=== PATIENT | female | born 1940 | race Caucasian/White ===

== ENCOUNTER → 2017-05-05 09:52 | Outpatient (CLI) | payer MEDICARE, OTHER, SELFPAY ==
--- NOTE | 2017-05-05 09:59 | RAD_ITS ---
STUDY: X-RAY CHEST REASON FOR EXAM: Female, 77 years old. Cough. TECHNIQUE: Frontal and lateral views of the chest. COMPARISON: None. FINDINGS: The lungs are mildly hyperexpanded. There is a mild diffuse interstitial pattern. There is no demonstrated pleural abnormality. There is borderline cardiomegaly. Normal mediastinum and laurence. Normal visualized pulmonary arteries. There is aortic tortuosity with calcification. There are diffuse degenerative changes of the visualized thoracic spine. Normal visualized ribs, clavicles, and shoulders. There is no demonstrated abnormality of the visualized soft tissue structures of the upper abdomen. RAD/Chest PA and Lateral IMPRESSION: Borderline cardiomegaly with hyperexpansion and diffuse interstitial pattern. No acute abnormalities are present. Electronically Signed: Edwar Patino MD at 10:17 EST , Service support ,
== END ==
PROVIDERS: Family Provider Internal Medicine; PCP Internal Medicine; Visit Provider Internal Medicine
DX: R05 Cough (principal)
CPT/HCPCS: 71046

== ENCOUNTER → 2017-05-13 16:30 | Outpatient (CLI) | payer MEDICARE, OTHER, SELFPAY | PROVIDERS: Visit Provider Internal Medicine | DX: R19.7 Diarrhea, unspecified (principal) | CPT/HCPCS: 87493 ==

== ENCOUNTER → 2017-06-10 13:07 | Outpatient (CLI) | payer MEDICARE, OTHER, SELFPAY ==
--- NOTE | 2017-06-10 13:19 | MRI_ITS ---
STUDY: MRI BRAIN WITH AND WITHOUT CONTRAST REASON FOR EXAM: Female, 77 years old. New onset headaches. Follow-up of meningioma. TECHNIQUE: Standardized multiplanar fat and water weighted pulse sequences were obtained. 7 ml of Gadavist contrast material was administered intravenously for the contrast portion of the examination. COMPARISON: MRI of the brain dated August 09, 2012. FINDINGS: There is mild cerebral atrophy with widening of the extra-axial spaces and ventricular dilatation. There are multiple white matter hyperintensities, distributed throughout the deep white matter tracts of the cerebral hemispheres, consistent with moderate chronic white matter ischemic changes. There is an apparent focus of restricted diffusion within the left paramedian klaus best seen on diffusion weighted image number 9. This is of uncertain clinical significance. There is no other evidence for recent intracranial ischemia or other cause of cytotoxic edema on diffusion weighted imaging (DWI). Normal T2* images of the brain without demonstrated susceptibility artifact. There is no demonstrated hemosiderin stain. There are prominent perivascular spaces (PVS) involving the basal ganglia. There is a focus of abnormal signal in the right thalamus, similar to the previous study. This may be the result of previous infarct. There is no extra-axial fluid accumulation. Normal flow voids within the major intracranial circulation suggesting patency by spin echo criteria. Normal venous enhancement. There is an extra-axial mass in the right anterior cranial fossa abutting the right frontal lobe. This mass measures approximately 1.7 x 1.6 x 2 cm in size. There appears to be a dural tail. There is associated abnormal signal within the right frontal lobe that is abnormally bright on the T2-weighted images. This is similar to the previous MRI. Normal sella turcica, pituitary gland, infundibular stalk, optic chiasm and hypothalamus. Normal tectal plate and pineal gland. Normal midbrain, klaus and medulla. Normal cerebellum. There are large basal cisterns. There is moderate abnormal signal within the left mastoid and mild right-sided mastoid abnormal T2 hyperintensity. This is new since the previous MRI. Normal bilateral internal auditory canals. There are bilateral ocular lens implants with otherwise normal intraorbital contents. There is moderate right maxillary mucoperiosteal thickening. There is mild mucoperiosteal thickening in the ethmoid sinuses. Normal calvarium and skull base. Normal visualized soft tissue structures. Normal visualized upper cervical spine. MRI/Brain W/WO Contrast IMPRESSION: 1. Involutional changes of the brain, as described above. 2. Unchanged appearance to right frontal extra-axial mass with a moderate amount of abnormal signal within the adjacent right frontal lobe. 3. A questionable small infarct in the left paramedian klaus. 4. Bilateral mastoid disease, left greater than right. Electronically Signed: Laya Montilla MD at 14:28 EST , Service support ,
== END ==
PROVIDERS: Family Provider Internal Medicine; PCP Internal Medicine; Visit Provider Internal Medicine
DX: D32.0 Benign neoplasm of cerebral meninges (principal)
CPT/HCPCS: 70553; A9585

== ENCOUNTER → 2017-09-16 15:32 | Outpatient (CLI) | payer MEDICARE, OTHER, SELFPAY ==
--- NOTE | 2017-09-16 09:30 | COLBX_PTH ---
PATIENT: CLARENCE ALBERT LOC: [facility] U#:[id number] AGE/SX: 84/F ROOM: RE09/16/[address]: Dr. Marcus Caldera MD : 1940 BED: DIS: SPEC #: [id number] RECD: 09/16/17 15:29 STATUS: MILLI GIULIANO #: [id number] HARI: 09/16/17 09:[address]: Marcus Caldera DEPT: SURGICAL PATHOLOGY RECD BY: Ankur Rollins ENTERED: 09/19/17 07:48 SP TYPE: COLON BX OTHR DR: Dr. Chaparrita Albrecht, [facility] Tissues: A - Sigmoid colon biopsy B - Transverse colon Procedures: Surgery Specimen Level IV HEADER OPERATION: Colonoscopy PRE-OP DIAGNOSIS: History of polyps TISSUE SUBMITTED: A ? Proximal sigmoid polyp, rule out adenoma, B ? Transverse colon, rule out adenoma MICROSCOPIC DIAGNOSIS A. Proximal sigmoid polyp, biopsy: Fragments of tubular adenoma. B. Transverse colon polyp, biopsy: Fragments of tubular adenoma. MARCY:dustin 09/20/17 MICROSCOPIC DESCRIPTION Slides are reviewed. GROSS DESCRIPTION A - Received in fixative is one container labeled with the patient's name and designated proximal sigmoid polyp. The specimen consists of multiple irregular fragments of light camacho soft tissue mixed with fecal material that in aggregate measure 1 x 0.5 x 0.1 cm. The specimen is totally submitted in one cassette. B - Received in fixative is one container labeled with the patient's name and designated transverse colon. The specimen consists of two irregular fragments of light camacho soft tissue that in aggregate measure 0.4 x 0.2 x 0.1 cm. The specimen is totally submitted in one cassette. / SJ:dustin 09/19/17 TC:1 CPT: 85570 x2
== END ==
PROVIDERS: Visit Provider Internal Medicine Gastroenterology
DX: Z86.010 Personal history of colon polyps (principal)
CPT/HCPCS: 88305

== ENCOUNTER → 2017-12-06 08:16 | Outpatient (CLI) | payer MEDICARE, OTHER, SELFPAY | PROVIDERS: Family Provider Internal Medicine; PCP Internal Medicine; Visit Provider Internal Medicine | DX: Z12.31 Encounter for screening mammogram for malignant neoplasm of breast (principal); I65.23 Occlusion and stenosis of bilateral carotid arteries | CPT/HCPCS: 77063; 77067; 93880 ==

== ENCOUNTER → 2017-12-19 07:42 | Outpatient (CLI) | payer MEDICARE, OTHER, SELFPAY ==
--- NOTE | 2017-12-19 07:44 | ECHOD_ITS ---
Reason For Study: Aortic Valve Disorder Procedure This was a 2D Doppler, Color Flow transthoracic echocardiogram. Exam performed in department. Left Ventricle Normal LV size. Left ventricular systolic function is normal. The estimated ejection fraction is 55 %. Stage 1 diastolic dysfunction. No regional wall motion abnormalities noted. Right Ventricle Normal RV size. Normal systolic function. Atria Normal left atrium. Normal right atrium. Mitral Valve Normal mitral valve. Tricuspid Valve Normal tricuspid valve. Aortic Valve Trisinus/trileaflet aortic valve. Mild focal aortic valve calcification. Peak aortic valve gradient 9 mmHg. Mean aortic valve gradient 4 mmHg. Pulmonic Valve Normal pulmonic valve. Great Vessels Normal aortic root. The pulmonary artery is normal size. Normal inferior vena cava. Pericardium/Pleural No pericardial effusion. MMode/2D Measurements & Calculations LVIDd: 4.4 cm IVSd: 0.72 cm Ao root diam: 3.7 cm LVIDs: 2.7 cm LVPWd: 0.86 cm RVDd: 3.8 cm FS: 38.5 % LAV(MOD-bp): 54.3 ml LA A4 area: 17.9 cm2 RA A4 area: 15.6 cm2 LAV(MOD-bp) Indexed: 30.9 ml/m2 LAV(MOD-sp2): 51.4 ml LAV(MOD-sp4): 53.1 ml Time Measurements MV dec time: 0.24 sec Doppler Measurements & Calculations MV E max rickie: 104.6 cm/sec Lat Peak E' Rickie: 8.2 cm/sec Med Peak E' Rickie: 7.9 cm/sec MV A max rickie: 118.1 cm/sec E/E' lat: 12.8 E/E' med: 13.2 MV E/A: 0.89 MV V2 max: 127.1 cm/sec MV P1/2t max rickie: 85.7 cm/sec Ao V2 max: 149.8 cm/sec MV max P.5 mmHg MV P1/2t: 105.1 msec Ao max P.0 mmHg MV V2 mean: 67.8 cm/sec MV dec slope: 238.9 cm/sec2 Ao V2 mean: 95.9 cm/sec MV mean P.2 mmHg MVA(P1/2t): 2.1 cm2 Ao mean P.2 mmHg MV V2 VTI: 33.4 cm Ao V2 VTI: 31.0 cm LV V1 max: 111.9 cm/sec PA V2 max: 92.5 cm/sec TR max rickie: 293.3 cm/sec LV V1 max P.0 mmHg TR max P.4 mmHg LV V1 mean P.3 mmHg LV V1 mean: 69.6 cm/sec LV V1 VTI: 26.6 cm Interpretation Summary Normal LV size. Left ventricular systolic function is normal. The estimated ejection fraction is 55 %. Stage 1 diastolic dysfunction. Mild focal aortic valve calcification. Ordering Physician: Chaparrita Albrecht Referring Physician: Chaparrita Albrecht Performed By: Jake Baugh RCS
== END ==
PROVIDERS: Family Provider Internal Medicine; PCP Internal Medicine; Visit Provider Internal Medicine
DX: R06.02 Shortness of breath (principal); I35.9 Nonrheumatic aortic valve disorder, unspecified
CPT/HCPCS: 93306

== ENCOUNTER → 2018-04-21 11:18 | Outpatient (CLI) | payer MEDICARE, OTHER, SELFPAY ==
--- NOTE | 2018-04-21 11:29 | RAD_ITS ---
STUDY: X-RAY - RIGHT KNEE REASON FOR EXAM: Female, 78 years old. Right knee pain TECHNIQUE: 4 view(s) of the knee. COMPARISON: 03/11/2015. FINDINGS: Normal visualized distal femur. Normal visualized proximal tibia and fibula. Normal proximal tibiofibular articulation. Mild narrowing of the medial femorotibial compartment. Trace narrowing of the lateral femorotibial compartment. Normal patellofemoral articulation. There is no demonstrated joint effusion. Mild chondrocalcinosis of the medial and lateral compartments. The soft tissue structures are unremarkable. RAD/Knee 4 or More Views IMPRESSION: 1. Mild degenerative changes. 2. Chondrocalcinosis. Electronically Signed: Mikel Marte MD at 13:58 EST , Service support ,
--- NOTE | 2018-04-21 11:35 | RAD_ITS ---
STUDY: X-RAY - LEFT KNEE REASON FOR EXAM: Female, 78 years old. Pain. TECHNIQUE: 4 view(s) of the knee. COMPARISON: Comparison is made with prior study dated March 11, 2016. FINDINGS: Degenerative spurring along the medial femoral condyle. Normal visualized proximal tibia and fibula. Normal proximal tibiofibular articulation. There is moderate degenerative arthrosis of the medial femorotibial compartment with moderate joint space narrowing. There is moderate degenerative arthrosis of the lateral femorotibial compartment with moderate joint space narrowing. There is moderate degenerative arthrosis of the patellofemoral articulation. There is a 8.2 mm well-defined bony density in the intercondylar notch. A smaller bony density seen adjacent to this. Intra-articular loose bodies should be ruled out. Joint effusion. Vascular calcification. RAD/Knee 4 or More Views IMPRESSION: Degenerative arthrosis. This has progressed as compared to prior study. Electronically Signed: Misael Winters MD at 14:29 EST Tel [phone], Service support ,
--- OUTSIDE RECORDS SUMMARY | 2018-06-25 21:22 | XMS RPT_ITS | Continuity of Care Document ---
:1940 Author Organization [facility] Address [address] [place] [address] Phone Care Team Providers Name Role Phone Chaparrita Albrecht DO Unavailable Dr. Marcus Caldera Unavailable Inna Reynoso Unavailable Unavailable Марина Concepcion Unavailable Unavailable SHONDA Andrade Unavailable Unavailable Unavailable Unavailable Problems Name Dates Details Abortions/Miscarriages Comments: 1 Status: Active Acute maxillary sinusitis, recurrence not specified (J01.00, 461.0) Status: Active Anemia, chronic renal failure, stage 3 (moderate) (N18.3, 285.21) Comments: better Status: Active Anxiety (F41.9, 300.00) Comments: has ativan use bid prn Status: Active Aortic valve disorder (I35.9, 424.1) Status: Active BMI 27.0-27.9,adult (Z68.27, V85.23) Status: Active brain tumor Status: Active Carotid stenosis (I65.29, 433.10) Status: Active Carotid stenosis (I65.29, 433.10) Comments: up to date continue working on risk factor modification Status: Active Carotid stenosis, asymptomatic, right (I65.21, 433.10) Comments: getting carotid doppler report Status: Active Cerumen Impaction (H61.20, 380.4) Status: Active Chest pain (R07.9, 786.50) Comments: given 1 sublingual nitro with no relief but maalox mix did take her sx away- think related to doxy and anxiety- take doxy with 8 oz water and dont lay flat Status: Active Chronic diarrhea (K52.9, 787.91) Comments: hold doxy cycline Status: Active 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 ? from sinusitis. ? allergies. will try tessolon perles. atb for sinus. seen renita in past if not get better ? related to COPD and need adjustments in inhalers. n ot wheexing so willnot add prednisone. atb hard because cannot take augmentin thinks breathing but use cephlosporin in past and good. so will do that . biaxin GI side effects and levaquin not mix with trazadone. Status: Active Dehydration (E86.0, 276.51) Status: Active Deliveries (Parity) Comments: 4 Status: Active Depression (F32.9, 311) Comments: check genetic test to see what meds would respond better too- done today and we talked about counseling but she feels she is already doing self help and has friend who counselor she talked to - going to add exercise- Status: Active Diabetes mellitus type II, controlled (E11.9, 250.00) Status: Active Encounter for screening mammogram for breast cancer (Renamed from Encounter for screening mammogram for malignant neoplasm of breast) (Z12.31, V76.12) Status: Active Encounter for screening mammogram for breast cancer (Renamed from Encounter for screening mammogram for malignant neoplasm of breast) (Z12.31, V76.12) Status: Active Encounter for screening mammogram for breast cancer (Renamed from Encounter for screening mammogram for malignant neoplasm of breast) (Z12.31, V76.12) Status: Active endometrial thickening Status: Active Esophageal reflux (K21.9, 530.81) Comments: otc prilosec 20 mg a day Status: Active ETD (eustachian tube dysfunction) (H69.80, 381.81) Status: Active Fall, accidental (W19.XXXA, E888.9) Status: Active Family history of Alzheimer's disease (Z82.0, V17.2) Status: Active Gastroesophageal reflux disease without esophagitis (K21.9, 530.81) Comments: chronic stable-continue present regimen Status: Active HERPES LABIALIS (054.2) Comments: noted today an ulcer between vagina and anus?? Status: Active Hypertension, benign (I10, 401.1) Comments: chronic stable-continue present regimen Status: Active Insomnia (G47.00, 780.52) Comments: patient advised not to use with ativan or trazadone Status: Active Kidney mass (N28.89, 593.9) Status: Active Knee pain, bilateral (M25.561, 719.46) Status: Active Knee pain, unspecified laterality (719.46) Comments: Luis Fernandoaine:lot: [id number]: 09/20site/route: L knee Status: Active Leg pain, posterior, left (M79.605, 729.5) Status: Active Localized osteoarthritis of left knee (M17.12, 715.36) Comments: euflexxa last one in left knee. Status: Active [facility] Status: Active [facility] PHYS[facility] Status: Active Memory loss (R41.3, 780.93) Comments: discussed restarting aricept as ultimately wasnt this causing diarrhea Status: Active Meningioma, cerebral (D32.0, 225.2) Status: Active Mixed hyperlipidemia (E78.2, 272.2) Status: Active Need for prophylactic vaccination and inoculation against influenza (Z23, V04.81) Status: Active Need for prophylactic vaccination and inoculation against influenza (Renamed from Need for immunization against influenza) (Z23, V04.81) Comments: Lot #:[id number] date:09/19/2017Amount given:0.5mlRoute: IMSite given:L DltdGiven by: Debra and ABN signed [employer] Status: Active Need for prophylactic vaccination and inoculation against influenza (Renamed from Need for immunization against influenza) (Z23, V04.81) Status: Active Nonsmoker (Z78.9, V49.89) Status: Active Occlusion and stenosis of unspecified carotid artery (I65.29, 433.10) Comments: keep working on risk factor modificiiaiton Status: Active Osteoarthritis of left knee, unspecified osteoarthritis type (M17.12, 715.96) Comments: second eufflexxa left knee. no problems wiyth first Status: Active Osteopenia (M85.80, 733.90) Comments: she not walking- encourage weight bearing exercise Status: Active Other and unspecified hyperlipidemia (E78.5, 272.4) Status: Active Other intervertebral disc degeneration, lumbar region (M51.36, 722.52) Status: Active Panic disorder without agoraphobia (F41.0, 300.01) Status: Active Postmenopausal (Renamed from Postmenopausal status) (Z78.0, V49.81) Status: Active Pregnancies () Comments: 5 Status: Active Proteinuria (R80.9, 791.0) Status: Active renal mass Status: Active screening Status: Active Sinus congestion (Renamed from Congestion of paranasal sinus) (R09.81, 478.19) Status: Active Sore throat (J02.9, 462) Status: Active Vaginal dryness (N89.8, 625.8) Status: Active Viral infection, unspecified (B34.9, 079.99) Status: Active Vitamin D deficiency (E55.9, 268.9) Status: Active Yeast infection (B37.9, 112.9) Status: Active Medications Name Dates Details AmLODIPine Besylate 5 MG Oral Tablet 1 (one) Tablet qd for 0 days Quantity: 90 {Tablet} Refills: 3 Ordered:14-Feb-2018 Fast DO, Chaparrita AFast DO, Chaparrita A Start : 14-Feb-2018 Active Atorvastatin Calcium 40 MG Oral Tablet 1 (one) Tablet Tablet qd for 0 days Quantity: 30 {Tablet} Refills: 4 Ordered:27-Jan-2016 Марина Concepcion Start : 27-Jan-2016 Active BD PEN NEEDLE MINI U/F, 31G X 5 MM (Miscellaneous) 1 Misc BID for 0 days Quantity: 1 {Box} Refills: 3 Ordered:18-Sep-2013 , Chaparrita KADIEast DO, Chaparrita A Start : 18-Sep-2013 Active Benazepril HCl 40 MG Oral Tablet 1 (one) Tablet bid for 0 days Quantity: 90 {Tablet} Refills: 3 Ordered:28-Jun-2017 Ambrocio WOLFF, Chaparrita ENGLEast DO, Chaparrita A Start : 28-Jun-2017 Active Comments:Dr. Angelo disla Cheratussin AC 100-10 MG/5ML Oral Syrup 1 (one) Milliliter 1-2 tsp q 8hrs prn for 0 days Quantity: 120 {Milliliter} Refills: 0 Ordered:11-Apr-2018 , Chaparrita KADIEast , Chaparrita A Start : 11-Apr-2018 Active Coreg 25 MG Oral Tablet 1/2 Tablet bid for 0 days Quantity: 90 {Tablet} Refills: 3 Ordered:17-Nov-2017 , Chaparrita ENLGEast , Chaparrita A Start : 17-Nov-2017 Active FreeStyle Lite Test In Vitro Strip 1 (one) Strip bid for 0 days Quantity: 100 {Strip} Refills: 5 Ordered:21-Apr-2018 Ambrocio WOLFF, Chaparrita ENGLEast DO, Chaparrita A Start : 21-Apr-2018 Active Comments:Dx:E11.9patient is NOT insulin dependant Hydrocodone-Acetaminophen 5-325 MG Oral Tablet 1 to 2 Tablet q 6hrs, prn for 0 days Quantity: 60 {Tablet} Refills: 0 Ordered:16-Dec-2017 , Chaparrita Saxena DO, Chaparrita A Start : 16-Dec-2017 Active Myrbetriq 50 MG Oral Tablet Extended Release 24 Hour 1/2 -1 Tablet ER 24HR qhs for 0 days Quantity: 14 {Tablet} Refills: 0 Ordered:06-Jun-2017 , Chaparrita AFast DO, Chaparrita A Start : 06-Jun-2017 Active PROVENTIL HFA, 108 (90 Base)MCG/ACT (Inhalation Aerosol Solution) 2 (two) Puff(s) tid prn for 0 days Quantity: 1 {Inhaler} Refills: 0 Ordered:17-Sep-2013 , Chaparrita KADIEast DO, Chaparrita A Start : 17-Sep-2013 Active Comments:rinse mouth after use SYMBICORT, 160-4.5MCG/ACT (Inhalation Aerosol) 2 (two) Aerosol Aerosol bid for 30 days Quantity: 1 {Inhaler} Refills: 3 Ordered:28-Sep-2013 Марина Concepcion Start : 28-Sep-2013 Active TraZODone HCl 100 MG Oral Tablet 1 tab Tablet qd for 0 days Quantity: 90 {Tablet} Refills: 3 Ordered:14-Apr-2018 DOCasea AFkaren DO, Chaparrita A Start : 14-Apr-2018 Active Trulicity 1.5 MG/0.5ML Subcutaneous Solution Pen-injector 1 (one) Milligram q week for 0 days Quantity: 3 {Milligram} Refills: 0 Ordered:22-Mar-2018 Ambrocio Case WOLFFa AFkaren WOLFF Chaparrita A Start : 22-Mar-2018 Active Comments:[id number] 09/20 Victoza 18 MG/3ML Subcutaneous Solution Pen-injector 1 (one) Milliliter Milliliter shot qd for 0 days Quantity: 3 {Milliliter} Refills: 0 Ordered:28-Feb-2017 Keri Singh MD Start : 22-Feb-2017 Active Viibryd 40 MG Oral Tablet 1 (one) Tablet qd for 0 days Quantity: 30 {Tablet} Refills: 0 Ordered:04-May-2016 Keri Singh MD Start : 04-May-2016 Active Vitamin B-Complex Oral Tablet 1 tab daily Active Vitamin D3 1000 UNIT Oral Capsule 4 Capsule qd for 0 days Quantity: 60 {Capsule} Refills: 0 Ordered:22-Mar-2018 Casea AFCase jones DOa A Start : 22-Mar-2018 Active Aricept 5 MG Oral Tablet 1 (one) Tablet qd in evening for 0 days Quantity: 30 {Tablet} Refills: 3 Ordered:16-Dec-2017 Inna Reynoso Start : 28-Sep-2017 End : 16-Dec-2017 Inactive Comments:may use generic Ativan 0.5 MG Oral Tablet 1 Tablet bid/prn for 30 days Quantity: 60 {Tablet} Refills: 0 Ordered:25-Oct-2017 Fast DO Chaparrita AFast DO, Chaparrita A Start : 25-Oct-2017 End : 24-Nov-2017 Inactive Comments:sixty Benzonatate 200 MG Oral Capsule 1 (one) Capsule Capsule bid prn cough for 0 days Quantity: 20 {Capsule} Refills: 0 Ordered:06-Jun-2017 Fast DO, Chaparrita AFast DO, Chaparrita A Start : 05-May-2017 End : 06-Jun-2017 Inactive BIAXIN XL PAC, 500MG (Oral Tablet Extended Release 24 Hour) 2 (two) Tablet ER 24HR daily for 14 days Quantity: 28 {Tablet_ER_24HR} Refills: 0 Ordered:16-Feb-2010 Charlene SANZ Gloria Start : 01-Jan-2010 End : 15-Jan-2010 Inactive Blood Glucose Test In Vitro Strip uad Other - NOS bid for 30 days Quantity: 60 {Strip} Refills: 3 Ordered:04-May-2016 SHONDA Andrade Start : 09-Oct-2010 End : 04-May-2016 Inactive Cefdinir 300 MG Oral Capsule 1 (one) Capsule Capsule bid for 0 days Quantity: 20 {Capsule} Refills: 0 Ordered:04-May-2016 SHONDA Andrade Start : 30-Jan-2016 End : 04-May-2016 Inactive Ceftin 500 MG Oral Tablet 1 (one) Tablet bid for 0 days Quantity: 20 {Tablet} Refills: 0 Ordered:10-May-2017 Inna Reynoso Start : 05-May-2017 End : 10-May-2017 Inactive CEPHALEXIN, 500MG (Oral Capsule) 1 (one) Cap four times daily for infection for 6 days Quantity: 24 {Cap} Refills: 0 Ordered:23-Apr-2011 Keri Singh MD Start : 26-Mar-2011 End : 01-Apr-2011 Inactive CEREFOLIN, 6-1-50-5MG (Oral Tablet) 1 Tablet qd for 0 days Quantity: 30 {Tablet} Refills: 3 Ordered:14-Jun-2012 Ladan Butts LPN Start : 13-Jun-2012 End : 14-Jun-2012 Inactive CIPRO, 250MG (Oral Tablet) 1 (one) Tablet bid for 3 days Quantity: 6 {Tablet} Refills: 0 Ordered:09-Jan-2009 Charlene SANZ Gloria Start : 09-Jan-2009 End : 13-Jan-2009 Inactive Citrucel 500 MG Oral Tablet 1 tab daily (500 MG) Inactive Crestor 40 MG Oral Tablet 1 Tablet qd for 0 days Quantity: 30 {Tablet} Refills: 3 Ordered:04-May-2016 SHONDA Andrade Start : 27-Jan-2016 End : 04-May-2016 Inactive Comments:may use generic DOXYCYCLINE HYCLATE, 100MG (Oral Capsule) 1 Capsule bid for 14 days Quantity: 28 {Capsule} Refills: 0 Ordered:12-Oct-2010 Ambrocio WOLFF, Chaparrita AFast DO, Chaparrita A Start : 12-Oct-2010 End : 26-Oct-2010 Inactive DULoxetine HCl 30 MG Oral Capsule Delayed Release Particles 1 (one) Capsule DR Part qday for 90 days Quantity: 90 {Capsule} Refills: 3 Ordered:04-May-2016 SHONDA Andrade Start : 27-Jan-2016 End : 04-May-2016 Inactive Dymista 137-50 MCG/ACT Nasal Suspension 1 (one) Suspension 1 spray daily for 0 days Quantity: 1 {[place]ickory} Refills: 0 Ordered:04-May-2016 SHONDA Andrade Start : 27-Jan-2016 End : 04-May-2016 Inactive ENABLEX, 7.5MG (Oral Tablet Extended Release 24 Hour) 1 tab qd for 0 days Refills: 0 Ordered:31-Dec-2008 Марина Concepcion End : 31-Dec-2008 Inactive LIPITOR, 80MG (Oral Tablet) 1 tab Tablet qd for 0 days Quantity: 30 {Tablet} Refills: 4 Ordered:21-Sep-2011 Марина Concepcion Start : 21-Sep-2011 End : 21-Sep-2011 Inactive Losartan Potassium 25 MG Oral Tablet 1/2 Tablet bid for 90 days Quantity: 90 {Tablet} Refills: 3 Ordered:04-May-2016 SHONDA Andrade Start : 11-Feb-2015 End : 04-May-2016 Inactive MIRALAX (Oral Powder) 1 tbsp qod to daily Inactive NASACORT AQ, 55MCG/ACT (Nasal Aerosol Solution) 2 (two) puffs daily for 0 days Quantity: 1 {Aerosol_Soln} Refills: 0 Ordered:13-May-2010 Марина Concepcion Start : 13-May-2010 End : 13-May-2010 Inactive Omeprazole 20 MG Oral Capsule Delayed Release 1 (one) Capsule DR daily, prn for 0 days Quantity: 30 {Capsule} Refills: 3 Ordered:04-May-2016 SHONDA Andrade Start : 27-Jan-2016 End : 04-May-2016 Inactive PredniSONE 10 MG Oral Tablet 3 (three) Tablet pills for 2 days 2 pill for 2 days 1pill for 2 days for 0 days Quantity: 12 {Tablet} Refills: 0 Ordered:06-Jun-2017 Inna Reynoso Start : 10-May-2017 End : 06-Jun-2017 Inactive Comments:with food in am TAMIFLU, 75MG (Oral Capsule) 1 (one) Capsule Capsule bid for 5 days Quantity: 10 {Capsule} Refills: 0 Ordered:08-Apr-2014 Марина Concepcion Start : 08-Apr-2014 End : 13-Apr-2014 Inactive Tradjenta 5 MG Oral Tablet 1 Tablet Tablet qd for 0 days Quantity: 30 {Tablet} Refills: 0 Ordered:04-May-2016 SHONDA Andrade Start : 17-Oct-2013 End : 04-May-2016 Inactive VALTREX, 500MG (Oral Tablet) 1 Tablet bid for 3 days Quantity: 6 {Tablet} Refills: 0 Ordered:03-Sep-2014 Keri Singh MD Start : 03-Sep-2014 End : 06-Sep-2014 Inactive Zoloft 100 MG Oral Tablet 1 (one) Tablet Tablet daily for 0 days Quantity: 90 {Tablet} Refills: 3 Ordered:04-May-2016 SHONDA Adnrade Start : 28-Jul-2015 End : 04-May-2016 Inactive ACTOS, 15MG (Oral Tablet) 1 tab Tablet qd for 0 days Quantity: 30 {Tablet} Refills: 3 Ordered:13-May-2010 Fast DO, Chaparrita AFast DO, Chaparrita A Start : 13-May-2010 End : 13-May-2010 Discontinued ALIGN, 4MG (Oral Capsule) 1 Capsule daily for 0 days Quantity: 30 {Capsule} Refills: 0 Ordered:09-Apr-2014 Марина Concepcion Start : 30-Nov-2011 End : 09-Apr-2014 Discontinued QUITA, 180MG (Oral Tablet) 1 Tablet daily for 0 days Quantity: 30 {Tablet} Refills: 0 Ordered:12-Oct-2010 Марина Concepcion Start : 22-Dec-2009 End : 09-Apr-2014 Discontinued Comments:This order discontinued per [facility]. ASMANEX 120 METERED DOSES, 220MCG/INH (Inhalation Aerosol Powder Breath Activated) 1 (one) Aero Pow Br Act bid for 0 days Quantity: 5 {Inhaler} Refills: 0 Ordered:28-Sep-2013 Марина Concepcion Start : 17-Sep-2013 End : 28-Sep-2013 Discontinued AVALIDE, 300-12.5MG (Oral Tablet) 1 tab Tablet qd for 0 days Refills: 0 Ordered:04-Dec-2008 Fast DO, Chaparrita AFast DO, Chaparrita A Start : 04-Dec-2008 End : 04-Dec-2008 Discontinued Margarita 5-40 MG Oral Tablet 1 Tablet qd for 0 days Quantity: 30 {Tablet} Refills: 7 Ordered:22-Feb-2017 Марина Concepcion Start : 04-May-2016 End : 22-Feb-2017 Discontinued BUSPIRONE HCL, 7.5MG (Oral Tablet) 1 Tablet tid for 0 days Quantity: 360 {Tablet} Refills: 2 Ordered:02-Feb-2013 Fast DO, Chaparrita AFast DO, Chaparrita A Start : 02-Feb-2013 End : 02-Feb-2013 Discontinued Comments:wean off BYETTA 10 MCG PEN, 10MCG/0.04ML (Subcutaneous Solution) 1 (one) Solution bid for 0 days Quantity: 1 {pen} Refills: 3 Ordered:02-Feb-2013 Fast DO, Chaparrita AFast DO, Chaparrita A Start : 02-Feb-2013 End : 02-Feb-2013 Discontinued Byetta 5 MCG Pen 5 MCG/0.02ML Subcutaneous Solution Pen-injector 2 (two) Solution in am and 1 inj in evening for 90 days Quantity: 6 {Pre-filled_Pen_Syringe} Refills: 3 Ordered:22-Feb-2017 Марина Concepcion Start : 27-Jan-2016 End : 22-Feb-2017 Discontinued CADUET, 5-40MG (Oral Tablet) 1 tab Tablet qd for 0 days Quantity: 30 {Tablet} Refills: 3 Ordered:23-Apr-2008 Stacy Jorge Start : 23-Apr-2008 End : 14-Apr-2009 Discontinued Comments:using the lipitor and norvasc since cheaper CELEXA, 40MG (Oral Tablet) 1 Tablet daily for 90 days Quantity: 90 {Tablet} Refills: 3 Ordered:03-Jan-2013 Fast DO, Chaparrita AFast DO, Chaparrita A Start : 03-Jan-2013 End : 03-Jan-2013 Discontinued DARVOCET-N 100, 100-650MG (Oral Tablet) 1-2 Tablet bid, prn for 0 days Quantity: 120 {Tablet} Refills: 3 Ordered:13-May-2010 SHONDA Andrade Start : 28-May-2008 End : 25-Sep-2013 Discontinued Comments:This order discontinued per [facility]. DIOVAN, 320MG (Oral Tablet) 1 (one) Tablet qd for 0 days Quantity: 90 {Tablet} Refills: 3 Ordered:28-Dec-2011 Fast DOCasea AFkaren DO, Chaparrita A Start : 28-Dec-2011 End : 28-Dec-2011 Discontinued DOXY, 100MG (PO Cap) 1 bid for 0 days Refills: 0 Ordered:09-Apr-2014 Марина Concepcion End : 09-Apr-2014 Discontinued Comments:This order discontinued per [facility]. FLUCONAZOLE, 150MG (Oral Tablet) uad Tablet Tablet one today and may repeat in 2 days if not gone for 0 days Quantity: 2 {Tablet} Refills: 0 Ordered:11-Feb-2015 Марина Concepcion Start : 02-Sep-2014 End : 11-Feb-2015 Discontinued FOLIC ACID, 5MG (Oral Capsule) 1 Capsule qd for 90 days Quantity: 90 {Capsule} Refills: 3 Ordered:02-Feb-2013 Ambrocio DOCasea AFast DO, Chaparrita A Start : 02-Feb-2013 End : 02-Feb-2013 Discontinued LEXAPRO, 20MG (Oral Tablet) 1 tab Tablet qd for 90 days Quantity: 90 {Tablet} Refills: 3 Ordered:12-Oct-2010 Ambrocio DOCasea AFast DO, Chaparrita A Start : 12-Oct-2010 End : 12-Oct-2010 Discontinued LINZESS, 145MCG (Oral Capsule) 1/2-1 Capsule q am, prn for 30 days Quantity: 30 {Capsule} Refills: 0 Ordered:09-Apr-2014 Марина Concepcion Start : 02-Feb-2013 End : 09-Apr-2014 Discontinued LISINOPRIL, 40MG (Oral Tablet) 1 tab Tablet qd for 0 days Quantity: 90 {Tablet} Refills: 3 Ordered:26-Dec-2013 Марина Concepcion Start : 31-Oct-2013 End : 26-Dec-2013 Discontinued NORVASC, 10MG (Oral Tablet) 1 Tablet qd for 90 days Quantity: 90 {Tablet} Refills: 3 Ordered:28-Dec-2011 Fast DO, Chaparrita AFast DO, Chaparrita A Start : 28-Dec-2011 End : 28-Dec-2011 Discontinued OMNARIS, 50MCG/ACT (Nasal Suspension) 2 (two) Suspension each nostril qd for 90 days Quantity: 3 {Suspension} Refills: 3 Ordered:09-Apr-2014 Марина Concepcion Start : 11-Jan-2011 End : 09-Apr-2014 Discontinued ONE TOUCH (In Vitro Strip) uad bid for 0 days Refills: 0 Ordered:07-Mar-2009 Марина Concepcion Start : 07-Mar-2009 End : 07-Mar-2009 Discontinued Comments:This order discontinued per [facility]. ONE TOUCH ULTRA BONUS PACK (In Vitro Strip) uad bid End : 02-Feb-2013 Discontinued Comments:Test strips only PERCOCET, 10-325MG (Oral Tablet) 1-2 Tablet every 6 hours prn for 0 days Quantity: 30 {Tablet} Refills: 0 Ordered:15-Jun-2011 Марина Concepcion Start : 15-Jun-2011 End : 15-Jun-2011 Discontinued Comments:thirty PERCOCET, 7.5-325MG (Oral Tablet) 1 (one) Tablet q 6 hours prn for 0 days Quantity: 120 {Tablet} Refills: 0 Ordered:04-Mar-2008 Fast DO, Chaparrita AFast DO, Chaparrita A Start : 04-Mar-2008 End : 04-Mar-2008 Discontinued PREDNISOLONE, 15MG/5ML (Oral Solution) 1 (one) Solution Solution with viscous lidocaine solution for 0 days Quantity: 8 {Ounce} Refills: 0 Ordered:11-Feb-2015 Марина Concepcion Start : 15-Jul-2014 End : 11-Feb-2015 Discontinued Comments:THIS IS CORRECT RX, DISREGARD 5/5 sent in earlier, also LMOM for phar with this inf[employer]ix sánchez of 50%/50% with viscous liodcaine and dispense 8 ounes TOTAL mixed solutionCal [id number] if questions SPECTAZOLE, 1% (External Cream) 1 (one) Cream bid for 0 days Quantity: 60 {Cream} Refills: 1 Ordered:01-Dec-2009 Марина Concepcion Start : 17-Jun-2009 End : 09-Apr-2014 Discontinued Comments:This order discontinued per [facility]. STARLIX, 120MG (Oral Tablet) 1 tab Tablet with meals for 0 days Quantity: 270 {Tablet} Refills: 3 Ordered:15-Jun-2011 Марина Concepcion Start : 15-Jun-2011 End : 15-Jun-2011 Discontinued Comments:other script written wrong please sure up to total above quantity TRAMADOL HCL, 50MG (Oral Tablet) 1 Tablet bid prn for 60 days Quantity: 60 {Tablet} Refills: 1 Ordered:11-Feb-2015 Марина Concepcion Start : 18-Sep-2013 End : 11-Feb-2015 Discontinued Comments:sixty TRIAMCINOLONE ACETONIDE, 0.1% (External Cream) apply to affected areas Cream PRN for 30 days Quantity: 60 {Tube} Refills: 1 Ordered:11-Feb-2015 Марина Concepcion Start : 02-Aug-2014 End : 11-Feb-2015 Discontinued TYLENOL WITH CODEINE #3, 300-30MG (Oral Tablet) 1 (one) Tablet q6-8 hrs prn for 0 days Quantity: 30 {Tablet} Refills: 0 Ordered:15-Jun-2011 Марина Concepcion Start : 15-Jun-2011 End : 15-Jun-2011 Discontinued VAGIFEM, 25MCG (Vaginal Tablet) Tablet for 0 days Refills: 3 Ordered:13-May-2010 Марина Concepcion Start : 04-Dec-2008 End : 09-Apr-2014 Discontinued Comments:This order discontinued per [facility]. VESICARE, 5MG (Oral Tablet) 1 tab Tablet q hs for 0 days Quantity: 90 {Tablet} Refills: 3 Ordered:15-Jun-2011 Марина Concepcion Start : 15-Jun-2011 End : 15-Jun-2011 Discontinued VICODIN, 5-500MG (Oral Tablet) 1-2 Tablet q 6 prn for 0 days Quantity: 60 {Tablet} Refills: 1 Ordered:17-Jan-2012 Fast DO, Chaparrita AFast DO, Chaparrita A Start : 17-Jan-2012 End : 01-Nov-2012 Discontinued Comments:This order discontinued per [facility]. VIIBRYD, 40MG (Oral Tablet) 1 (one) Tablet qd for 30 days Quantity: 30 {Tablet} Refills: 0 Ordered:07-May-2013 Keri Singh MD Start : 07-May-2013 End : 07-May-2013 Discontinued WELLBUTRIN XL, 150MG (Oral Tablet Extended Release 24 Hour) 1 (one) Tablet ER 24HR qd for 90 days Refills: 3 Ordered:14-Jul-2015 Fast DO, Chaparrita AFast DO, Chaparrita A Start : 14-Jul-2015 End : 14-Jul-2015 Discontinued ZETIA, 10MG (Oral Tablet) 1 tab qd for 0 days Refills: 0 Ordered:06-Dec-2007 Марина Concepcion End : 06-Dec-2007 Discontinued ZOLOFT, 50MG (Oral Tablet) 2 (two) Tablet daily for 0 days Quantity: 60 {Tablet} Refills: 3 Ordered:20-Jul-2013 Fast DO, Chaparrita AFast DO, Chaparrita A Start : 20-Jul-2013 End : 20-Jul-2013 Discontinued ZOLPIDEM TARTRATE, 10MG (Oral Tablet) 1 (one) Tablet Tablet qhs prn for 0 days Quantity: 30 {Tablet} Refills: 0 Ordered:11-Feb-2015 Марина Concepcion Start : 30-Aug-2014 End : 11-Feb-2015 Discontinued Comments:th[age], called to [facility] 08-30-14 erussell Allergies and Adverse Reactions Name Dates Details Augmentin (Allergy) Status: Active Biaxin *MACROLIDES* (Allergy) Status: Active Comments: nausea, vomiting diarrhea Morphine Derivatives (Allergy) Status: Active Skelaxin *MUSCULOSKELETAL THERAPY AGENTS* Status: Active (Allergy) Comments: Hives Past Medical History Name Dates Details Acute sinusitis (J01.90, 461.9) Status: Resolved as of 17-Oct-2013 Arthritis (M19.90, 716.90) Status: Inactive as of 10-Jan-2017 BMI 27.0-27.9,adult (Z68.27, V85.23) Status: Inactive as of 16-Dec-2017 BMI 28.0-28.9,adult (Z68.28, V85.24) Status: Inactive as of 06-Jun-2017 BMI 28.0-28.9,adult (Z68.28, V85.24) Status: Inactive as of 22-Mar-2018 BMI 29.0-29.9,adult (Z68.29, V85.25) Status: Resolved as of 05-May-2017 BMI 30.0-30.9,adult (Z68.30, V85.30) Status: Resolved as of 05-May-2017 BMI 31.0-31.9,adult (Z68.31, V85.31) Status: Inactive as of 04-May-2016 Calcium kidney stone (N20.0, 592.0) Status: Resolved as of 17-Oct-2013 Chest tightness (R07.89, 786.59) Status: Resolved as of 17-Oct-2013 Chronic sinusitis (J32.9, 473.9) Comments: she sees ent on tuesday she will talk with him him about this- she has no colored drainage Status: Inactive as of 10-May-2017 Cold feeling (R68.89, 780.99) Status: Inactive as of 10-May-2017 Constipation (K59.00, 564.00) Status: Resolved as of 17-Oct-2013 Dehydration (E86.0, 276.51) Status: Resolved as of 17-Oct-2013 Diarrhea (R19.7, 787.91) Status: Resolved as of 13-Jun-2012 Dysuria (R30.0, 788.1) Status: Resolved as of 17-Jun-2009 Elevated LFTs (R94.5, 790.6) Status: Resolved as of 13-Jun-2012 Epistaxis (R04.0, 784.7) Comments: tried to set up with ent today they full so called er and sending to er- tried pressure and cold Status: Inactive as of 04-May-2016 Fatigue (R53.83, 780.79) Status: Resolved as of 13-Jun-2012 fsgs Status: Inactive as of 11-Oct-2008 Headache (R51, 784.0) Status: Resolved as of 17-Oct-2013 Hematuria (R31.9, 599.7) Status: Resolved as of 17-Jun-2009 Herpes (B00.9, 054.9) Status: Inactive as of 04-May-2016 Hypercalcemia (E83.52, 275.42) Status: Resolved as of 10-Mar-2009 Low back pain potentially associated with radiculopathy (M54.5, 724.2) Status: Resolved as of 04-Sep-2008 Meningioma (Renamed from 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, 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, BRAIN/VETERINARY MILK SPECIALIST NEC) (794.09) Comments: had spell transient didnt know where was- want to rescan brain mmse -- but have to see what creatinine going to do Status: Resolved as of 16-Dec-2017 Need for prophylactic vaccination and inoculation against influenza (Z23, V04.81) Status: Inactive as of 02-Aug-2014 Need for prophylactic vaccination and inoculation against influenza (Z23, V04.81) Status: Inactive as of 17-Oct-2013 Need for vaccination against Streptococcus pneumoniae (Z23, V03.82) Status: Inactive as of 02-Aug-2014 Neoplasm of uncertain behavior of skin (D48.5, 238.2) Status: Resolved as of 13-Jun-2012 Nocturia (R35.1, 788.43) Status: Inactive as of 12-Sep-2017 Palpitations (R00.2, 785.1) Status: Inactive as of 10-May-2017 preop clearance Status: Inactive as of 03-Sep-2008 PRERENAL AZOTEMIA (586.) Status: Resolved as of 13-Jun-2012 Pruritus (L29.9, 698.9) Status: Inactive as of 04-May-2016 screen Status: Inactive as of 17-Jun-2009 screening Status: Inactive as of 17-Oct-2013 screening Status: Inactive as of 17-Oct-2013 screening Status: Inactive as of 12-Oct-2010 screening Status: Inactive as of 17-Oct-2013 Screening for other and unspecified deficiency anemia (Z13.0, V78.1) Status: Inactive as of 17-Jun-2009 Shoulder pain (M25.519, 719.41) 12-Jan-2010 Comments: right shoulder done today. will inject. will adjust what doing at work out. Status: Inactive as of 12-Sep-2017 Sinus drainage (J34.89, 478.19) Comments: samples of zyrtec 10 mg at hs Status: Inactive as of 12-Sep-2017 Sweating increase (R61, 780.8) Comments: better Status: Inactive as of 04-May-2016 Thrombocytopenia, unspecified (D69.6, 287.5) Status: Resolved as of 12-Oct-2010 Tinea pedis, unspecified laterality (B35.3, 110.4) Status: Resolved as of 13-Jun-2012 Unspecified Diagnosis Status: Inactive as of 17-Oct-2013 Unspecified Diagnosis Status: Inactive as of 17-Oct-2013 Unspecified Diagnosis Status: Inactive as of 17-Oct-2013 Unspecified Diagnosis Status: Inactive as of 02-Aug-2014 Unspecified Diagnosis Status: Inactive as of 17-Oct-2013 Procedures Procedure Dates Details Appendectomy Completed Cataract Removal, Insert Prosthetic Lens Completed Comments: 2010- left. 2015 right Cholecystectomy Completed lumbar [id number] Completed Tonsillectomy Completed Date Value Details 21-Apr-2018 Knee 4 or More Views Result: Comments: See Note; NOTES: [facility] Imaging Services [address] [place] [address] Knee 4 or More Views MR#: [id number] Acct: [id number] Name: CLARENCE ALBERT Rep #: [id number] : 1940 F 78 From: Mikel Marte MD PCP: Chaparrita Albrecht DO Status: REG CLI Study: Knee 4 or More Views Date of Exam: 04/21/18 Exam# [id number] Ordering Dr: Chaparrita Albrecht DO STUDY: X-RAY - RIGHT KN EE REASON FOR EXAM: Female, 78 years old. Right knee pain TECHNIQUE: 4 view(s) of the knee. COMPARISON: 03/11/2015. FINDINGS: Normal visualized distal femur. Genesis l visualized proximal tibia and fibula. Normal proximal tibiofibular articulation. Mild narrowing of the medial femorotibial compartment. Trace narrowing of the lateral femorotibial compartment. Normal patellofemoral articulation. There is no demonstrated joint effusion. Mild chondrocalcinosis of the medial and lateral compartments. The soft tissue structures are unremarkable. RAD/Knee 4 or More Views IMPRESSION: 1. Mild degenerative changes. 2. Chondrocalcinosis. Electronically Signed: Mikel Marte MD at 13:58 EST Tel , Service support , CC: Chaparrita Albrecht DO Spray Machine Loader: Signed 21-Apr-2018 Knee 4 or More Views Result: Comments: See Note; NOTES: [facility] Imaging Services [address] [place] [address] Knee 4 or More Views MR#: [id number] Acct: [id number] Name: CLARENCE ALBERT Rep #: [id number] : 1940 F 78 From: Misael Hebert MD PCP: Chaparrita Albrecht DO Status: REG CLI Study: Knee 4 or More Views Date of Exam: 04/21/18 Exam# [id number] Ordering Dr: Chaparrita Albrecht DO STUDY: X-RAY - LEFT KNEE REASON FOR EXAM: Female, 78 years old. Pain. TECHNIQUE: 4 view(s) of the knee. COMPARISON: Comparison is made with prior study dated March 11, 2016. FINDI NGS: Degenerative spurring along the medial femoral condyle. Normal visualized proximal tibia and fibula. Normal proximal tibiofibular articulation. There is moderate degenerative arthrosis of the medi al femorotibial compartment with moderate joint space narrowing. There is moderate degenerative arthrosis of the lateral femorotibial compartment with moderate joint space narrowing. There is moderate d egenerative arthrosis of the patellofemoral articulation. There is a 8.2 mm well- defined bony density in the intercondylar notch. A smaller bony density seen adjacent to this. Intra-articular loose bodi es should be ruled out. Joint effusion. Vascular calcification. RAD/Knee 4 or More Views IMPRESSION: Degenerative arthrosis. This has progressed as compared to prior study. Electronically Signed: Misael Hebert MD at 14:29 EST Tel [phone], Service support , CC: Chaparrita Albrecht DO Spray Machine Loader: Signed 19-Dec-2017 Echocardiogram Complete Result: Comments: See Note; NOTES: [facility] Cardiovascular Services [address] [place] [address] Echo Complete 12/19/17 0800 MR#: [id number] Acct: [id number] Name: CLARENCE ALBERT ep #: [id number] : 1940 77 From: Chuckie Cormier MD Attending Dr: Chaparrita Albrecht DO Status: REG CLI Ordering Dr: Chaparrita Albrecht DO Date: 12/19/17 Location: [facility] Sex: F C Admitted: Reason For Study: Aor tic Valve Disorder Procedure This was a 2D Doppler, Color Flow transthoracic echocardiogram. Exam performed in department. Left Ventricle Normal LV size. Left ventricular systolic function is normal. The estimated ejection fraction is 55 %. Stage 1 diastolic dysfunction. No regional wall motion abnormalities noted. Right Ventricle Normal RV size. Normal systolic function. Atria Normal left atrium. Normal right atrium. Mitral Valve Normal mitral valve. Tricuspid Valve Normal tricuspid valve. Aortic Valve Trisinus/trileaflet aortic valve. Mild focal aortic valve calcification. Peak aortic valve gradient 9 mmHg. Mean aortic valve gradient 4 mmHg. Pulmonic Valve Normal pulmonic valve. Great Vessels Normal aortic root. The pulmonary artery is normal size. Normal inferior vena cava. Pericardium /Pleural No pericardial effusion. MMode/2D Measurements AND Calculations LVIDd: 4.4 cm IVSd: 0.72 cm Ao root diam: 3.7 cm LVIDs: 2.7 cm LVPWd: 0.86 cm RVDd: 3.8 cm FS: 38.5 % LAV(MOD-bp): 54.3 ml LA A4 area: 17.9 cm2 RA A4 area: 15.6 cm2 LAV(MOD-bp) Indexed: 30.9 ml/m2 LAV(MOD- sp2): 51.4 ml LAV(MOD-sp4): 53.1 ml Time Me asurements MV dec time: 0.24 sec Doppler Measurements AND Calculations MV E max tenisha: 104.6 cm/sec Lat Peak E' Tenisha: 8.2 cm/sec Med Peak E' Tenisha: 7.9 cm/sec MV A max tenisha: 118.1 cm/sec E/E' lat: 12.8 E/E' med: 13.2 MV E/A: 0.89 MV V2 max: 127.1 cm/sec MV P1/2t max tenisha: 85.7 cm/sec Ao V2 max: 149.8 cm/sec MV max P.5 mmHg MV P1/2t: 105.1 msec Ao max P.0 mmHg MV V2 mean: 67.8 cm/sec MV dec slope: 238.9 cm/sec2 Ao V2 mean: 95.9 cm/sec MV mean P.2 mmHg MVA(P1/2t): 2.1 cm2 Ao mean P.2 mmHg MV V2 VTI: 33.4 cm Ao V2 VTI: 31.0 cm LV V1 max: 111.9 cm/sec PA V2 max: 92.5 cm/sec TR max tenisha: 293.3 cm/sec LV V1 max P.0 mmHg TR max PG : 34.4 mmHg LV V1 mean P.3 mmHg LV V1 mean: 69.6 cm/sec LV V1 VTI: 26.6 cm Interpretation Summary Normal LV size. Left ventricular systolic function is normal. The estimated ejection fraction is 55 %. Stage 1 diastolic dysfunction. Mild focal aortic valve calcification. Ordering Physician: Chaparrita Macdonald Referring Physician: Chaparrita Albrecht Performed By: Jake Baugh RCS 12/19/17 1022 Date Chuckie Cormier MD CC: Chaparrita Albrecht DO Date Dictated: 12/19/17 0800 Date Transcribed: 12/19/17 1022 Spray Machine Loader: Signed 07-Dec-2017 Carotid Duplex Ultrasound Result: Comments: See Note; NOTES: [facility] Cardiovascular Services [address] [place] [address] Carotid Duplex Ultrasound 12/06/17 0901 MR#: [id number] Acct: [id number] Name: CLARENCE WHITTINGTON Rep #: [id number] : 1940 77 From: Anurag Loya MD Attending Dr: Chaparrita Albrecht DO Status: REG CLI Ordering Dr: Chaparrita Albrecht DO Date: 12/06/17 Location: [facility] Sex: F C Admitted: Reaso n For Study: STENOSIS Rt. Velocities/BP Lt. Velocities/BP Prox CCA 73.9/17 cm/sec. Prox CCA 68.6/18.2 cm/sec. Mid CCA 53/14.9 cm/sec. Mid CCA 60.4/18.8 cm/sec. Dist CCA 51.5/16.5 cm/sec. Dist CCA 59.8/ 16.4 cm/sec. Prox ICA 47.1/16.9 cm/sec. Prox ICA 65.1/24 cm/sec. Mid ICA 63.3/25.5 cm/sec. Mid ICA 76.2/24.6 cm/sec. Dist ICA 70.4/28.1 cm/sec. Dist ICA 90.9/28.1 cm/sec. Rt. ICA/CCA = 1.33. Lt. ICA/CCA = 1.50. Prox ECA 46.8/7.07 cm/sec. Prox ECA 80.3/11.7 cm/sec. Rt. Vert. 26.9/11 cm/sec. Lt. Vert. 53.8/16.9 cm/sec. Right Extracranial There is heterogeneous, irregular atherosclerotic plaque noted in the right common carotid artery. There is heterogeneous, smooth atherosclerotic plaque noted in the right internal carotid artery. There is no significant atherosclerotic plaque noted in the right exte rnal carotid artery. Antegrade flow is noted in the right vertebral artery. Left Extracranial There is heterogeneous, smooth atherosclerotic plaque noted in the left common carotid artery. There is het erogeneous, irregular atherosclerotic plaque noted in the left internal carotid artery. There is no significant atherosclerotic plaque noted in the left external carotid artery. Antegrade flow is noted in the left vertebral artery. Procedure Carotid Duplex 44724. Exam performed in department. Interpretation Summary Mild (<50%) stenosis right extracranial internal carotid. Mild (<50%) stenosis left extracranial internal carotid. Flow within the vertebral arteries is antegrade bilaterally. __ __ Ordering Physician: Chaparrita Albrecht Performed By: Margot Benton RVT and Student 12/07/17 0809 Date Anurag Loya MD CC: Chaparrita Albrecht DO Date Dictated: 12/06/17900 Date Transcribed: 12/07/17808 Spray Machine Loader: Signed 06-Dec-2017 SCREENING MAMM (CAD), BILAT Result: Comments: See Note; NOTES: [facility] Imaging Services [address] [place] [address] SCREENING MAMM (CAD), BILAT MR#: [id number] Acct: [id number] Name: CLARENCE ALBERT Rep #: [id number] : 1940 F 77 From: Misael Hebert MD PCP: Chaparrita Albrecht DO Status: REG CLI Study: SCREENING MAMM (CAD), BILAT Date of Exam: 12/06/17 Exam# [id number] Ordering Dr: Chaparrita Albrecht DO MAMM OGRAPHY - BILATERAL SCREENING REASON FOR EXAM: Female, 77 years old. Routine annual screening examination. PERTINENT HISTORY: Non-contributory. TECHNIQUE: Digital bilateral breast yoel (3D mammograph ic acquisition) in the CC and MLO projections. 2-D mediolateral oblique (MLO) and craniocaudad (CC) views of both breasts were obtained. CAD: Full Field Digital Mammography with Computer Added Detection was performed. COMPARISON: Comparison is made with prior study dated November 02, 2016 and October 30, 2015. FINDINGS: Breast Composition: There are scattered areas of f ibroglandular density. There are no dominant masses or suspicious calcifications. No other significant abnormalities are identified. There has been no significant change since the prior study. BI/SCREENING MAMM (CAD), BILAT IMPRESSION: Stable bilateral screening mammogram. Yearly follow-up mammogram recommended. (A) ASSESSMENT CATEGORY: BIRADS Category 1: Negative. A letter regarding these results will be sent to the patient by the facility within 30 days. Approximately 10% of breast cancers are not det ected by mammography. A normal mammogram should not delay biopsy of a clinically suspicious abnormality. [id number] Electronically Signed: Misael Hebert MD at 15:31 EDT Tel [phone], Se rvice support , CC: Chaparrita Albrecht DO Spray Machine Loader: Signed 10-Jun-2017 Brain W/WO Contrast Result: Comments: See Note; NOTES: [facility] Imaging Services [address] [place] [address] Brain W/WO Contrast MR#: [id number] Acct: [id number] Name: CLARENCE ALBERT Rep #: [id number] : 1940 F 77 From: Laya Montilla MD PCP: Chaparrita Albrecht DO Status: REG CLI Study: Brain W/WO Contrast Date of Exam: 06/10/17 Exam# [id number] Ordering Dr: Chaparrita Albrecht DO STUDY: MRI BRAIN WITH AND W ITHOUT CONTRAST REASON FOR EXAM: Female, 77 years old. New onset headaches. Follow- up of meningioma. TECHNIQUE: Standardized multiplanar fat and water weighted pulse sequences were obtained. 7 ml of G adavist contrast material was administered intravenously for the contrast portion of the examination. COMPARISON: MRI of the brain dated August 09, 2012. FINDINGS: Ther e is mild cerebral atrophy with widening of the extra-axial spaces and ventricular dilatation. There are multiple white matter hyperintensities, distributed throughout the deep white matter tracts of th e cerebral hemispheres, consistent with moderate chronic white matter ischemic changes. There is an apparent focus of restricted diffusion within the left paramedian klaus best seen on diffusion weighte d image number 9. This is of uncertain clinical significance. There is no other evidence for recent intracranial ischemia or other cause of cytotoxic edema on diffusion weighted imaging (DWI). Normal T2 * images of the brain without demonstrated susceptibility artifact. There is no demonstrated hemosiderin stain. There are prominent perivascular spaces (PVS) involving the basal ganglia. There is a foc us of abnormal signal in the right thalamus, similar to the previous study. This may be the result of previous infarct. There is no extra-axial fluid accumulation. Normal flow voids within the major in tracranial circulation suggesting patency by spin echo criteria. Normal venous enhancement. There is an extra-axial mass in the right anterior cranial fossa abutting the right frontal lobe. This mass me asures approximately 1.7 x 1.6 x 2 cm in size. There appears to be a dural tail. There is associated abnormal signal within the right frontal lobe that is abnormally bright on the T2-weighted images. Th is is similar to the previous MRI. Normal sella turcica, pituitary gland, infundibular stalk, optic chiasm and hypothalamus. Normal tectal plate and pineal gland. Normal midbrain, klaus and medulla. No rmal cerebellum. There are large basal cisterns. There is moderate abnormal signal within the left mastoid and mild right-sided mastoid abnormal T2 hyperintensity. This is new since the previous MRI. No rmal bilateral internal auditory canals. There are bilateral ocular lens implants with otherwise normal intraorbital contents. There is moderate right maxillary mucoperiosteal thickening. There is mild mucoperiosteal thickening in the ethmoid sinuses. Normal calvarium and skull base. Normal visualized soft tissue structures. Normal visualized upper cervical spine. MRI/Brain W/WO Contrast IMPRESSION: 1. Involutional changes of the brain, as described above. 2. Unchanged appearance to right frontal extra-axial mass with a moderate amount of abn ormal signal within the adjacent right frontal lobe. 3. A questionable small infarct in the left paramedian klaus. 4. Bilateral mastoid disease, left greater than right. Electronically Signed: Laya hameed MD at 14:28 EST , Service support , CC: Chaparrita Albrecht DO Spray Machine Loader: Signed 05-May-2017 Chest PA and Lateral Result: Comments: See Note; NOTES: [facility] Imaging Services [address] [place] [address] Chest PA and Lateral MR#: [id number] Acct: [id number] Name: CLARENCE ALBERT Rep #: [id number] : 1940 F 77 From: Edwar Patino MD PCP: Chaparrita Albrecht DO Status: REG CLI Study: Chest PA and Lateral Date of Exam: 05/05/17 Exam# [id number] Ordering Dr: Keri Singh MD STUDY: X-RAY CHEST POOL SON FOR EXAM: Female, 77 years old. Cough. TECHNIQUE: Frontal and lateral views of the chest. COMPARISON: None. FINDINGS: The lungs are mildly hyperexpanded. Ther e is a mild diffuse interstitial pattern. There is no demonstrated pleural abnormality. There is borderline cardiomegaly. Normal mediastinum and laurence. Normal visualized pulmonary arteries. There is aor tic tortuosity with calcification. There are diffuse degenerative changes of the visualized thoracic spine. Normal visualized ribs, clavicles, and shoulders. There is no demonstrated abnormality of th e visualized soft tissue structures of the upper abdomen. RAD/Chest PA and Lateral IMPRESSION: Borderline cardiomegaly with hyperexpansion and di ffuse interstitial pattern. No acute abnormalities are present. Electronically Signed: Edwar Patino MD at 10:17 EST , Service support , CC: Keri Singh MD; Chaparrita Albrecht DO Spray Machine Loader: Signed 02-Nov-2016 Dexa Bone Density Study (HP) Result: Comments: See Note; NOTES: [facility] Imaging Services [address] [place] [address] Verdana 4d Dexa Bone Density Study (HP) MR#: [id number] Acct: [id number] Name: BETYJANELLEKendal Rika Nazia Rep #: [id number] : 1940 F 76 From: Misael Hebert MD PCP: Chaparrita Albrecht DO Status: REG CLI Study: Dexa Bone Density Study () Date of Exam: 11/02/16 Exam# [id number] Ordering Dr: Laura DO STUDY: DUAL ENERGY X-RAY ABSORPTIOMETRY / DXA REASON FOR EXAM: Female, 76 years old. The patient is postmenopausal. Loss of height. TECHNIQUE: Bone Mineral Density (BMD) measurements of lumba r spine and bilateral hips were obtained. COMPARISON: Comparison is made with prior study dated July 09, 2014. FINDINGS: Lumbar Spine (L1-L4): g/cm2 (1.276) / T-sc ore (0.9) / Z-score (2.7) Findings are suggestive of normal bone density with a low fracture risk. Left Femur Total: g/cm2 (0.879) / T-score (-1.0) / Z-score (0.9) Left Femoral Neck: g/cm2 (0.856) / T- score (-1.3) / Z-score (0.8) Right Femur Total: g/cm2 (0.911) / T-score (-0.8) / Z-score (1.2) Right Femoral Neck: g/cm2 (0.857) / T-score (-1.3) / Z-score (0.8) The T-Scores on the most recent prior e xamination were: Lumbar Spine (L1-L4): There has been improvement of bone density since the previous examination. Left Femur Total: which represents a worsening of 5.0%. Right Femur Total: which repre sents a worsening of 1.8%. 0002 HPBD/Dexa Bone Density Study (HP) IMPRESSION: The patient is considered osteopenic as outlined below according to Worl d Jacob Organization (WHO) criteria with a moderate fracture risk. There has been worsening of bone density since the previous examination. Reference Information: T he T-score is the number of standard deviations above or below the standard which is normal for young adults at their peak bone mineral density. The World Health Organization (WHO) interprets the T-scor es as follows: Above -1 Normal bone density Between -1 and -2.5 Osteopenia Equal to / or below -2.5 Osteoporosis As a practical clinical guideline, osteopenia may be graded as follows: Mild -1 through -1.5 Moderate -1.6 through -2.0 Severe -2.1 through -2.4 The Z-score is the number of standard deviations above or below age-matched controls. A Z-score of less than -1.5 would be considered abnormal. References: 1. NIH Osteoporosis and Related Bone Diseases http://www.osteo.org 2. International Society for Clinical Densitometry http://www.iscd.org 3. National Osteoporosis Foundation http://www.nof .org Electronically Signed: Misael Hebert MD at 11:02 EDT Tel [phone], Service support , CC: Chaparrita Albrecht DO Spray Machine Loader: Signed 02-Nov-2016 SCREENING MAMM (CAD), BILAT Result: Comments: See Note; NOTES: [facility] Imaging Services [address] [place] [address] Verdana 4d SCREENING MAMM (CAD), BILAT MR#: [id number] Acct: [id number] Name: CLARENCE ALBERT Rep #: [id number] : 1940 F 76 From: Misael Hebert MD PCP: Chaparrita Albrecht DO Status: [facility] CLI Study: SCREENING MAMM (CAD), BILAT Date of Exam: 11/02/16 Exam# [id number] Ordering Dr: Case Albrecht DO MAMMOGRAPHY - BILATERAL SCREENING REASON FOR EXAM: Female, 76 years old. Routine annual screening examination. PERTINENT HISTORY: Non-contributory. TECHNIQUE: Digital bilateral breast yoel (3D mammographic acquisition) in the CC and MLO projections. 2-D mediolateral oblique (MLO) and craniocaudad (CC) views of both breasts were obtained. CAD: Full Field Digital Mammography with Computer Adde d Detection was performed. COMPARISON: Comparison is made with prior study dated October 30, 2015 and October 18, 2014. FINDINGS: Breast Composition: There are scattered areas of fibroglandular density. There are no dominant masses or suspicious calcifications. No other significant abnormalities are identified. There has been no significant change since the prior stud y. HPBI/SCREENING MAMM (CAD), BILAT IMPRESSION: Stable bilateral screening mammogram. Yearly follow-up mammogram recommended. (A) ASSESSMENT CATEGORY: BIRADS Category 1: Negative. A letter regarding these results will be sent to the patient by the facility within 30 days. Approximately 10% of breast cancers are not detected by mammography. A normal mammogram should not delay biopsy of a clinically suspicious abnormality. [id number] Electronically Signed: Misael Hebert MD at 12:44 EDT Tel [phone], Service support , CC: Chaparrita Albrecht DO Spray Machine Loader: Signed 05-Aug-2016 Venous Duplex Lower Extremity Result: Comments: See Note; NOTES: [facility] Cardiovascular Services [address] [place] [address] Venous Duplex US, Unilateral 08/05/16 1053 MR#: [id number] Acct: [id number] Name: CLARENCE WEI Rep #: [id number] : 1940 76 From: Elvin Natarajan MD Attending Dr: Chaparrita Albrecht DO Status: REG CLI Ordering Dr: Chaparrita Albrecht DO Date: 08/05/16 Location: [facility] Sex: F C Admitted: Reas on For Study: LEG PAIN RIGHT LEFT CFV is compressible, spontaneous, phasic, GSV is normal. competent and demonstrates normal CFV is compressible, spontaneous, phasic , augmentation. competent, and demo nstrates normal Procedure augmentation. Exam performed in department. FV is compressible, spontaneous, phasic, A preliminary report was called and/or faxed competent and demonstrates normal to Dr. Albrecht. augmentation. POP V is compressible, spontaneous, phasic, competent and demonstrates normal augmentation. T/P Trunk is compressible. PTV is compressible. LT PerV is compressible. Hypoechoic structure n oted lt medial pop space measuring 2.5 x 2.0 x 4.5 cm. Non- vascular. Interpretation Summary Deep veins of the left lower extremity are patent and compressible segmentally. There is no evidence of left lower extremity deep vein thrombosis. Valvular competence appears intact within the proximal deep venous system on the left . The left greater saphenous vein appears patent and compressible segmentally . A non-vascular, hypoechoic structure is noted in the left medial popliteal space, measuring 2.5 cm x 2.0 cm x 4.5 cm. This probably represents a popliteal cyst. Clinical correlation is advised. ____ Ordering Physician: Chaparrita Albrecht Performed By: Margot Benton RVT 08/05/16 1127 Date Elvin Natarajan MD CC: Chaparrita Albrecht DO Date Dictated: 08/05/16 1053 Date Transcribed: 08/05/16 1127 Spray Machine Loader: Signed 27-May-2016 Knee 4 or More Views Result: Comments: See Note; NOTES: [facility] Imaging Services [address] [place] [address] Verdana 4d Knee 4 or More Views MR#: [id number] Acct: [id number] Name: CLARENCE ALBERT Rep #: [id number] : 1940 F 76 From: Misael Hebret MD PCP: Chaparrita Albrecht DO Status: REG CLI Study: Knee 4 or More Views Date of Exam: 05/27/16 Exam# [id number] Ordering Dr: Kylah Linda UDY: X-RAY - LEFT KNEE REASON FOR EXAM: Female, 76 years old. Pain following a remote fall. TECHNIQUE: 5 view(s) of the knee. COMPARISON: None. FINDINGS: Normal v isualized distal femur. Normal visualized proximal tibia and fibula. Normal proximal tibiofibular articulation. There is moderate degenerative arthrosis of the medial femorotibial compartment with mode rate joint space narrowing. There is moderate degenerative arthrosis of the lateral femorotibial compartment with moderate joint space narrowing. Normal patellofemoral articulation. Small joint effusio n. RAD/Knee 4 or More Views IMPRESSION: Degenerative arthrosis. Electronically Signed: Misael Hebert MD at 10:41 EST , Service support [phone], CC: Chaparrita Albrecht DO; Kylah Linda DO Spray Machine Loader: Signed 13-May-2016 Sinus/Facial Bone Result: Comments: See Note; NOTES: [facility] Imaging Services [address] [place] [address] Verdana 4d Sinus/Facial Bone MR#: [id number] Acct: [id number] Name: CLARENCE ALBERT Rep #: [id number] : 1940 F 76 From: Godwin Winter MD PCP: Chaparrita Albrecht DO Status: REG CLI Study: Sinus/Facial Bone Date of Exam: 05/13/16 Exam# [id number] Ordering Dr: Alejandro Silverman MD STUDY: CT MAXILLOFACIAL SINUSES REASON FOR EXAM: Female, 76 years old. Sinusitis. RADIATION DOSAGE (If Supplied By Facility): CTDIvol = ( 29.38 ) mGy, DLP = ( 503.38 ) mGycm TECHNIQUE: The patient was scanned in a multi detector CT scanner. High resolution axial imaging was performed without the administration of intravenous contrast material. Sagittal and coronal images were reconstructed. Individualized d ose optimization techniques were used for this CT. COMPARISON: CT scan sinuses 01/19/2011. Correlation is also made with the report of MRI of the brain done on 02/02/2012. MRI images were not available FINDINGS: FRONTAL SINUSES: The right frontal sinus is hypoplastic. There is no mucosal inflammatory disease. ETHMOIDAL SINUSES: Normal aeration, without mucosal i nflammatory disease. MAXILLARY SINUSES: Normal aeration, without mucosal inflammatory disease. SPHENOIDAL SINUSES: Normal aeration, without mucosal inflammatory disease. There is patency of the bilat eral maxillary infundibuli with normal uncinate processes, ethmoid bullae, and hiatus semilunaris. Normal bilateral middle turbinates. Normal bilateral inferior turbinates. There is a left sided nasal septal deviation, but without a nasal septal spur. There is patency of the bilateral nasal airways. The visualized osseous structures are normal. The visualized bilateral orbital contents are normal. There is a 1.6 cm extra-axial mass in the anteromedial left frontal lobe, with ring shaped calcification and with edema in the adjacent frontal lobe, but without significant mass effect. This mass has n ot visibly increased in size since the 2010 exam and associated edema is also not significantly changed. According to previous MRI report, findings in that study were compatible with a meningioma. ____ CT/Sinus/Facial Bone IMPRESSION: Normal CT examination of the maxillofacial sinuses. Ostiomeatal units are patent. Right frontal meningioma is stable in size. Electronically Signed: Godwin Winter MD at 7:35 EST , Service support [phone], CC: Chaparrita Albrecht DO; Alejandro Silverman MD Spray Machine Loader: Signed 21-Apr-2016 Emergency Department Summary Result: Comments: See Note; NOTES: [facility] Medical Records Department [address] [place] [address] Emergency Department Summary MR#: [id number] Acct: [id number] Name: CLARENCE ALBERT Rep #: [id number] : 1940 76 From: Carissa Murphy MD PCP: Chaparrita Albrecht DO Status: DEP ER DATE OF SERVICE: 04/20/2016 HISTORY OF PRESENT ILLNESS: The patient presents for 3 days of intermittent nosebleed. The patient was seen by a physician today because of nosebleed that the patient was unable to control. She states she has been coughing a lot and had upper respiratory symptoms, which has not helped the nosebleed. She denies being on any blood thinners other than a baby aspirin daily. She denies nausea, vomiting or abdominal pain. No respiratory distress. PAST MEDICAL HISTORY: Remarkable f or chronic kidney disease. PHYSICAL EXAMINATION: VITAL SIGNS: Reviewed. The patient is afebrile, hemodynamically stable. GENERAL: Well nourished and well developed, sitting in bed in no distress. HEENT : Head is normocephalic and atraumatic. Mucous membranes are moist. No blood noted in the posterior oropharynx. Nasal exam shows no external trauma, mild dried blood on the outside. The left anterior na trey septum shows diffuse erythema with 1 clotted blood vessel without active hemorrhage. Examination of the right internal naris was unremarkable other than mild hyperemia. HEART: Regular in rate and rh ythm. No increased work of breathing. Remainder of exam unremarkable. EMERGENCY DEPARTMENT COURSE: The patient had no active bleeding. While in the Emergency Department Afrin and lidocaine were placed in the left naris on a cotton pledget. Afterwards we had discussed either continuing to observe for any recurrent bleeding or cauterizing the culprit blood vessel with silver nitrate. The patient opted for cauterization. After the Afrin and lidocaine were left in place for several minutes, the blood vessel was successfully cauterized with silver nitrate. There was no further bleeding. The patient was advised not to blow her nose, which she did not realize she should not do. She had been blowing out the clots, which likely was causing the rebleeding. She will not blow her nose. She will not pick her nose. She will very gently use her vaseline-like moisturizer in her nostrils to help keep the tissues moist. She was discharged home and will return if she has any return of severe bleeding. IMPRESSION : Left anterior epistaxis. CARISSA MURPHY MD T: NTS JOB: [id number] 04/21/16805 <Electronically signed by Carissa Murphy MD> Date Carissa donovan MD Cosigner Signature (If Indicated): Date CC: Chaparrita Albrecht DO Date Dictated: 04/20/161711 Date Transcribed: 04/20/161711 Spray Machine Loader: Signed 20-Apr-2016 Discharge Instruction Result: Comments: See Note; NOTES: [facility] Medical Records Department [address] [place] [address] Discharge Instruction 04/20/16 1303 MR#: [id number] Acct: [id number] Name: CLARENCE ALBERT Rep #: [id number] : 1940 76 From: Carissa Murphy MD PCP: Chaparrita Albrecht DO Status: DEP ER ED Disposition - Plan for ED Patient: Disposition: Home or Assisted Living Chief Complaint: Nosebl eed Instructions: Nosebleed Referrals: Chaparrita Albrecht DO [Primary Care Provider] - As Needed Additional Instructions: Please return to the emergency department if your nosebleed starts again and will not s top with pressure within 15 minutes. DO NOT BLOW YOUR NOSE or stick anything up your nose except for the gently moisturizer you have been using. What to do if you have Problems For any increased jerrod n, shortness of breath, bleeding, nausea or vomiting, chest pain, or any unexpected problems, contact your Primary Care Provider. Call [facility] ([phone]) or report to the closest Emergency Room. Call 911 if necessary. 04/20/16 1645 <Electronically signed by Carissa Murphy MD> Date Carissa Murphy MD Cosigner Signature (If I ndicated): Date CC: Chaparrita Albrecht DO 02-Nov-2015 Carotid Duplex Ultrasound Result: Comments: See Note; NOTES: [facility] Cardiovascular Services [address] [place] [address] Carotid Duplex Ultrasound 10/30/15 1100 MR#: [id number] Acct: [id number] Name: CLARENCE ALBERT Rep #: [id number] : 1940 75 From: Elvin Natarajan MD Attending Dr: Chaparrita Albrecht DO Status: REG CLI Ordering Dr: Chaparrita Albrecht DO Date: 10/30/15 Location: [facility] Sex: F C Adm itted: Reason For Study: carotid stenosis Rt. Velocities/BP Lt. Velocities/BP Prox CCA 100/20.5 cm/sec. Prox CCA 97.3/21.1 cm/sec. Mid CCA 63.9/19.3 cm/sec. Mid CCA 63.3/15.8 cm/sec. Dist CC A 56.9/17.6 cm/sec. Dist CCA 85/20.5 cm/sec. Prox ICA 53/15.7 cm/sec. Prox ICA 74.5/23.5 cm/sec. Mid ICA 64/24.4 cm/sec. Mid ICA 93.8/27.6 cm/sec. Dist ICA 70.3/21.6 cm/sec. Dist ICA 104/35.7 cm/sec. Rt. ICA/CCA = 70.3/63.9=1.1. Lt. ICA/CCA = 104/63.3=1.6. Prox ECA 63.3/12.9 cm/sec. Prox ECA 66.8/7.62 cm/sec. Rt. Vert. 32.6/11.2 cm/sec. Lt. Vert. 47.5/15.3 cm/sec. Right Extracranial There is intimal thickening but no significant atherosclerotic plaque noted in the right common carotid artery. There is intimal thickening but no significant atherosclerotic plaque noted in the right interna l carotid artery. There is intimal thickening but no significant atherosclerotic plaque noted in the right external carotid artery. Antegrade flow is noted in the right vertebral artery. Left Extra cranial There is intimal thickening but no significant atherosclerotic plaque noted in the left common carotid artery. There is heterogeneous, irregular atherosclerotic plaque noted in the left inter nal carotid artery. The tortuous nature of the distal left internal carotid artery may result in flow velocities overestimating the degree of stenosis. There is intimal thickening but no significant atherosclerotic plaque noted in the left external carotid artery. Antegrade flow is noted in the left vertebral artery. Procedure Carotid Duplex 85506. The exam was diagnostic. Exam performed in department. Interpretation Summary No significant atherosclerotic plaque or stenosis noted in the right internal carotid artery. Mild (<50%) stenosis left extracranial internal carotid. Armando w within the vertebral arteries is antegrade bilaterally. There has been no significant change since a prior study on 10/18/14. Ordering Physician: Chaparrita Albrecht Performed By: Yana Ramirez, EVELIN, RVT 11/02/15 1143 Date ___ Elvin Natarajan MD CC: Chaparrita Albrecht DO Date Dictated: 10/30/15 1100 Date Transcribed: 11/02/15 1143 Spray Machine Loader: Signed 30-Oct-2015 Bilat Scrn Digital AND CAD Result: Comments: See Note; NOTES: [facility] Imaging Services [address] [place] [address] Verdana 4d Bilat Scrn Digital AND CAD MR#: [id number] Acct: [id number] Name: CLARENCE ALBERT Rep #: [id number] : 1940 F 75 From: Andres Brady MD PCP: Chaparrita Albrecht DO Status: REG CLI Study: Saad Jaffe Digital AND CAD Date of Exam: 10/30/15 Exam# [id number] Ordering Dr: Chaparrita Albrecht DO MAMMOGRAPHY - BILATERAL SCREENING REASON FOR EXAM: Female, 75 years old. Routine annual screening examination. PERTINENT HISTORY: NO FAM HX - NO PREV SURG'S - TECHNIQUE: Digita l bilateral breast tomosynthesis (3-D mammographic acquisition) in the CC and MLO projections. Synthesized 2-D images (C-View reconstruction from tomosynthesis acquisition) providing bilateral breast CC and MLO views. Mediolateral oblique (MLO) and craniocaudad (CC) views of both breasts were obtained. CAD: Full Field Digital Mammography with Computer Added Detection was performed. COMPARISON: MG - Breast Bilateral - 13:14, MG - Breast Bilateral - 14:37 FINDINGS: Breast Density: C - Heterogeneously dense, which may obscure small masses. There are no dominant masses or suspicious calcifications. No other significant abnormalities are identified. HPBI/Bilat Scrn Digi claudia AND CAD IMPRESSION: Stable bilateral screening mammogram. Yearly follow- up mammogram recommended. (A) ASSESSMENT CATEGORY: BIRADS Category 2: Benign. A le tter regarding these results will be sent to the patient by the facility within 30 days. Approximately 10% of breast cancers are not detected by mammography. A normal mammogram should not delay biop sy of a clinically suspicious abnormality. [id number] Electronically Signed: Andres Brady MD at 17:48 EDT Tel , Service support [phone], CC: Chaparrita Albrecht DO Spray Machine Loader: Signed 30-Oct-2015 Bilat Scrn Digital AND CAD Result: Comments: See Note; NOTES: [facility] Imaging Services [address] [place] [address] Verdana 4d Bilat Scrn Digital AND CAD MR#: [id number] Acct: [id number] Name: CLARENCE ALBERT Rep #: [id number] : 1940 F 75 From: Andres Brady MD PCP: Chaparrita Albrecht DO Status: REG CLI Study: Bilat Scrn Digital AND CAD Date of Exam: 10/30/15 Exam# [id number] Ordering Dr: Chaparrita Albrecht DO MAMMOGRAPHY - BILATERAL SCREENING REASON FOR EXAM: Female, 75 years old. Routine annual screening examination. PERTINENT HISTORY: NO FAM HX - NO PREV SURG'S - TECHNIQUE: Digita l bilateral breast tomosynthesis (3-D mammographic acquisition) in the CC and MLO projections. Synthesized 2-D images (C-View reconstruction from tomosynthesis acquisition) providing bilateral breast CC and MLO views. Mediolateral oblique (MLO) and craniocaudad (CC) views of both breasts were obtained. CAD: Full Field Digital Mammography with Computer Added Detection was performed. COMPARISON: MG - Breast Bilateral - 13:14, MG - Breast Bilateral - 14:37 FINDINGS: Breast Density: C - Heterogeneously dense, which may obscure small masses. There are no dominant masses or suspicious calcifications. No other significant abnormalities are identified. CC: Chaparrita Albrecht DO Spray Machine Loader: Signed 22-Oct-2015 ELECTROCARDIOGRAM, COMPLETE (ECG) ([id number]) Comments: ekg showed normal sinus rhythym, normal axis, no acute st/t wave changes no change Result: [MEASUREMENTS ANALYSIS] Date of Test: 10/22/2015 14:41:29; Heart Rate: 71; NV Interval: 140; QRS: 94; QT Interval: 384; Corrected QT Interval (QTc): 403; P Wave Barclay: 58; QRS Wave Barclay: -3; T Wave Barclay: 56; Blood Pressure: 128/76 [ECG DIAGNOSTIC STATEMENTS] Date of Test: 10/22/2015 14:41:29; Summary: Sinus Rhythm Low voltage -possible pulmonary disease. ABNORMAL 22-Jul-2015 Kidney and Bladder Result: Comments: See Note; NOTES: [facility] Imaging Services [address] [place] [address] Verdana 4d Kidney and Bladder MR#: [id number] Acct: [id number] Name: BETYYaniv Rep #: [id number] : 1940 F 75 From: Nir Sanchez MD PCP: Chaparrita Albrecht DO Status: REG CLI Study: Kidney and Bladder Date of Exam: 07/22/15 Exam# [id number] Ordering Dr: Chaparrita Albrecht DO STUDY: RENAL ULTRASOUND - COMPLETE REASON FOR EXAM: Female, 75 years old. Renal mass TECHNIQUE: Ultrasound evaluation of the kidneys was performed with real-time and static segovia-scale imaging. CO MPARISON: None. FINDINGS: RIGHT KIDNEY: Normal location of the right kidney, which is normal in size. The right kidney measures 8.6 x 5.7 x 6.3 cm. There is a n ormal cortex of the right kidney. The renal cortex measures 1.6 cm. There are at least 2 anechoic lesions measuring up to 2.1 cm and demonstrating posterior acoustic shadowing.. There are no right re nal calculi. There is no right hydronephrosis. DISTAL RIGHT URETER: There is non-visualization of the distal right ureter. There is no demonstrated right ureterovesical junction calculus. There is no demonstrated right ureteral jet. LEFT KIDNEY: Normal location of the left kidney, which is normal in size. The left kidney measures 8.9 x 5.0 x 4.3 cm. There is a normal cortex of the left kidney . The renal cortex measures 1 cm. Two anechoic lesions are seen within the left kidney measuring up to 1.7 cm. There are no left renal calculi. There is no left hydronephrosis. DISTAL LEFT URETER: T here is non-visualization of the distal left ureter. There is no demonstrated left ureterovesical junction calculus. There is no demonstrated left ureteral jet. BLADDER: There is a normal wall thick ness of the distended urinary bladder. There is no demonstrated mass within the urinary bladder. There are no demonstrated bladder calculi. IMPRESSION: Simple a ppearing bilateral renal cysts measuring up to 2.1 cm on the right and 1.7 cm on the left. Electronically Signed: Nir Sanchez MD at 4:59 EDT Tel , Service support , CC: Chaparrita Albrecht DO Spray Machine Loader: Signed 11-Mar-2015 Knee 4 or More Views Result: Comments: See Note; NOTES: [facility] Imaging Services [address] [place] [address] Verdana 4d Knee 4 or More Views MR#: [id number] Acct: [id number] Name: CLARENCE ALBERT Rep #: [id number] : 1940 F 74 From: Trent Cameron DO PCP: Chaparrita Albrecht DO Status: REG CLI Study: Knee 4 or More Views Date of Exam: 03/11/15 Exam# [id number] Ordering Dr: Case Albrecht DO STUDY: X-RAY - RIGHT KNEE REASON FOR EXAM: Female, 74 years old. Trauma, status post fall TECHNIQUE: 4 view(s) of the knee. COMPARISON: None. FINDIN GS: Normal visualized distal femur. Normal visualized proximal tibia and fibula. Normal proximal tibiofibular articulation. There is no demonstrated fracture. There is mild degenerative arthrosis o f the medial femorotibial compartment. There is mild degenerative arthrosis of the lateral femorotibial compartment. Normal patellofemoral articulation. There is no demonstrated joint effusion. The re is chondrocalcinosis seen along the lateral meniscus. IMPRESSION: Degenerative changes within the knee. No acute fracture. Small suprapatellar effusion. Paula ctronically Signed: Trent Cameron DO at 7:45 EST Tel , Service support [phone], RAD/Knee 4 or More Views IMPRESSION: Degener ative changes within the knee. No acute fracture. Small suprapatellar effusion. Electronically Signed: Trent Cameron DO at 7:45 EST Tel , Service support [phone], CC: Chaparrita Albrecht DO Spray Machine Loader: Signed 11-Mar-2015 Knee 4 or More Views Result: Comments: See Note; NOTES: [facility] Imaging Services [address] [place] [address] Verdana 4d Knee 4 or More Views MR#: [id number] Acct: [id number] Name: CLARENCE ALBERT Nazia Rep #: [id number] : 1940 F 74 From: Trent Cameron DO PCP: Chaparrita Albrecht DO Status: REG CLI Study: Knee 4 or More Views Date of Exam: 03/11/15 Exam# [id number] Ordering Dr: Case Albrecht DO STUDY: X-RAY - LEFT KNEE REASON FOR EXAM: Female, 74 years old. Trauma, knee pain TECHNIQUE: 4 view(s) of the knee. COMPARISON: None. FINDINGS: Nor mal visualized distal femur. Normal visualized proximal tibia and fibula. Normal proximal tibiofibular articulation. There is mild degenerative arthrosis of the medial femorotibial compartment. Ther e is mild degenerative arthrosis of the lateral femorotibial compartment. Normal patellofemoral articulation. There is no demonstrated joint effusion. The soft tissue structures are unremarkable. _ IMPRESSION: Mild degenerative changes. No acute bony abnormality. Electronically Signed: Trent Cameron DO at 7:46 EST Tel , Service support [phone], RAD/Knee 4 or More Views IMPRESSION: Mild degenerative changes. No acute bony abnormality. Electronically Signed: Trent Cameron DO at 7:46 EST Tel , Service support [phone], CC: Chaparrita Albrecht DO Spray Machine Loader: Signed 18-Oct-2014 Carotid Duplex Ultrasound Result: Comments: See Note; NOTES: [facility] Cardiovascular Services [address] [place] [address] Carotid Duplex Ultrasound 10/18/14 1331 MR#: [id number] Acct: [id number] Na me: CLARENCE ALBERT Rep #: [id number] : 1940 74 From: Elvin Natarajan MD Attending Dr: Chaparrita Albrecht DO Status: REG CLI Ordering Dr: Chaparrita Albrecht DO Date: 10/18/14 Location: BI Sex: F C Admitted: Rt. Velocities/BP Lt. Velocities/BP Prox CCA 59.8/16.4 cm/sec. Prox CCA 86.4/22 cm/sec. Mid CCA 53.4/19.3 cm/sec. Mid CCA 70.7/11.8 cm/sec. Dist CCA 59.2/14.7 cm/sec. Dist CCA 71.5/12.6 cm/sec. Prox ICA 53.4/16.4 cm/sec. Prox ICA 76.2/25.9 cm/sec. Mid ICA 59.2/24 cm/sec. Mid ICA 91.9/26.7 cm/sec. Dist ICA 67.4/28.1 cm/sec. Dist ICA 86.4/26 cm/sec. Rt. ICA/CCA = 1.3. Lt. ICA/CCA = 1.3. Pro x ECA 59.8/11.1 cm/sec. Prox ECA 77/15.7 cm/sec. Rt. Vert. 25.2/7.1 cm/sec. Lt. Vert. 56.3/17 cm/sec. Right Extracranial There is intimal thickening but no significant atherosclerotic plaque noted i n the right common carotid artery. There is intimal thickening but no significant atherosclerotic plaque noted in the right internal carotid artery. There is no significant atherosclerotic plaque not ed in the right external carotid artery. Antegrade flow is noted in the right vertebral artery. Left Extracranial There is intimal thickening but no significant atherosclerotic plaque noted in the left common carotid artery. There is heterogeneous, irregular atherosclerotic plaque noted in the left internal carotid artery. There is intimal thickening but no significant atherosclerotic plaque n oted in the left external carotid artery. Antegrade flow is noted in the left vertebral artery. Procedure Carotid Duplex 52071. The exam was diagnostic. Exam performed in department. Interpretatio n Summary No significant atherosclerotic plaque or stenosis noted in the right internal carotid artery. Mild (<50%) stenosis left extracranial internal carotid. Flow within the vertebral matteo yaneli is antegrade bilaterally. Ordering Physician: Chaparrita Albrecht Performed By: Velka, RVT Jennifer nda 10/18/14 1616 Date Elvin Natarajan MD CC: Chaparrita Albrecht DO Date Dictated: 10/18/14 1331 Date Transcribed: 10/18/14 1616 Spray Machine Loader: Signed 18-Oct-2014 Bilat Scrn Digital AND CAD Result: Comments: See Note; NOTES: [facility] Imaging Services [address] [facility] [place] [address] Breast Imaging Report MR#: [id number] Acct: [id number] Name: CLARENCE ALBERT Rep #: [id number] : 1940 F 74 From: Misael Hebert MD PCP: Chaparrita Albrecht DO Status: REG CLI Study: Saad Jaffe Digital AND CAD Date of Exam: 10/18/14 Exam# [id number] Ordering Dr: Chaparrita Albrecht DO MAMMOGRAPHY - BILATERAL SCREENING REASON FOR EXAM: Female, 74 years old. Routine annual screening examination. PERTINENT HISTORY: Non-contributory. TECHNIQUE: Digital examination. Mediolateral oblique (MLO) and craniocaudad (CC) views of both breasts were obtained. CAD: CAD was performed on this study. COMPARISON: Comparison is made with prior study dated September 04, 2013 and January 19 2. FINDINGS: Breast Composition: There are scattered areas of fibroglandular density. There are no dominant masses or suspicious calcifications. No other sign ificant abnormalities are identified. There has been no significant change since the prior study. IMPRESSION: Stable bilateral screening mammogram. Yearly follow -up recommended. (A) ASSESSMENT CATEGORY: BIRADS Category 1: Negative. A letter regarding these results will be sent to the patient by the facility within 30 da ys. Approximately 10% of breast cancers are not detected by mammography. A normal mammogram should not delay biopsy of a clinically suspicious abnormality. Electronically Signed: Misael redmond MD at 13:44 EDT Tel [phone], Service support [phone], CC: Chaparrita Albrecht DO Spray Machine Loader: Signed 09-Jul-2014 Dexa Bone Density Study (HP) Result: Comments: See Note; NOTES: [facility] Imaging Services [address] [place] [address] Bone Density Report MR#: [id number] Acct: [id number] Name: CLARENCE ALBERT Rep #: [id number] : 1940 F 74 From: Misael Hebert MD PCP: Chaparrita Albrecht DO Status: REG CLI Study: Dexa Bone Density Study (HP) Date of Exam: 07/09/14 Exam# [id number] Ordering Dr: Chaparrita Albrecht DO STUDY: DUAL ENERGY X-RAY ABSORPTIOMETRY / DXA REASON FOR EXAM: Female, 74 years old. The patient is postmenopausal. TECHNIQUE: Bone Mineral Density (BMD) measurements of lumbar spine and bilateral hips were obtained. COMPARISON: Comparison is made with prior study dated January 20, 2012. FINDINGS: Lumbar Spine (L1- L4): g/cm2 (1.211) / T-score (0.4) / Z- score (2.2) Findings are suggestive of normal bone density with a low fracture risk. Left Femur Total: g/cm2 (0.925) / T-score (-0.7) / Z-score (1.1) Left Femoral Neck: g/cm2 (0.923) / T-score (-0.8 ) / Z-score (1.1) Right Femur Total: g/cm2 (0.928) / T-score (-0.6) / Z-score (1.2) Right Femoral Neck: g/cm2 (0.870) / T-score (-1.2) / Z-score (0.8) The T-Scores on the most recent prior examinati on were: Lumbar Spine (L1-L4): There has been improvement of bone density since the previous examination. Left Femur Total: which represents a worsening of 2.9%. Right Femur Total: which represent s an improvement of 0.5%. IMPRESSION: The patient is considered normal as outlined below according to World Jacob Organization (WHO) criteria with a low fracture risk. There has been improvement of bone density since the previous examination. Reference Information: The T-score is the number of standard deviations above or below the standard which is normal for young adults at their peak bone mineral density. The World Health Organization (WHO) interprets the T-scores as follows: Above -1 Normal bone density Betw een -1 and -2.5 Osteopenia Equal to / or below -2.5 Osteoporosis As a practical clinical guideline, osteopenia may be graded as follows: Mild -1 through -1.5 Moderate -1.6 through -2.0 Severe -2.1 through -2.4 The Z-score is the number of standard deviations above or below age-matched controls. A Z-score of less than -1.5 would be considered abnormal. References: 1. NIH Osteoporosis and Re lated Bone Diseases http://www.osteo.org 2. International Society for Clinical Densitometry http://www.iscd.org 3. National Osteoporosis Foundation http://www.nof.org Electronically Signed: Angel Hebert MD at 14:55 EDT Tel [phone], Service support [phone], CC: Chaparrita Albrecht DO Spray Machine Loader: Signed 17-Sep-2013 Chest PA and Lateral Result: Comments: See Note; NOTES: [facility] Imaging Services [address] [place] [address] Radiology Report MR#: [id number] Acct: [id number] Name: CLARENCE ALBERT Rep #: [id number] : [id number] F 73 From: David Bennett MD PCP: Chaparrita Albrecht DO Status: REG CLI Study: Chest PA and Lateral Date of Exam: 09/17/13 Exam# [id number] Ordering Dr: Chaparrita Albrecht DO STUDY: X-RAY C HEST REASON FOR EXAM: Female, 73 years old. Cough TECHNIQUE: PA and lateral views of the chest. COMPARISON: CT January 29, 2011 FINDINGS: Elevation of the right hemidiaphragm. No focal infiltrate or edema. There is no demonstrated pleural abnormality. Normal size heart. Normal mediastinum and laurence. Normal visualized pulmonary arteries. There is athero sclerotic calcification of the aortic arch . Mild degenerative change of the spine. Postoperative change of the lumbar region. Normal visualized ribs, clavicles, and shoulders. There is no demonst rated abnormality of the visualized soft tissue structures of the upper abdomen. IMPRESSION: No focal infiltrate or edema. Electronically Signed: David fiore MD at 20:44 EDT , Service support [phone], RAD/Chest PA and Lateral IMPRESSION: No focal infiltrate or edema. Electronic ally Signed: David Bennett MD at 20:44 EDT , Service support [phone], CC: Chaparrita Albrecht DO Spray Machine Loader: Signed 17-Sep-2013 Spirometry ([id number]) Result: 29-Aug-2013 Carotid Duplex Ultrasound Result: Comments: See Note; NOTES: [facility] Cardiovascular Services [address] [place] [address] Carotid Duplex Ultrasound 08/24/13 0939 MR#: [id number] Acct: [id number] Chalo e: CLARENCE ALBERT Rep #: [id number] : 1940 73 From: Anurag Loya MD Attending Dr: Chaparrita Albrecht DO Status: REG CLI Ordering Dr: Chaparrita Albrecht DO Date: 08/24/13 Location: [facility] Sex: F C Admitted: Rt. Velocities/BP Lt. Velocities/BP Prox CCA 89.1/18.2 cm/sec. Prox CCA 86.8/ 22.3 cm/sec. Mid CCA 65.1/19.3 cm/sec. Mid CCA 65.7/17.6 cm/sec. Dist CCA 63.3/18.2 cm/sec. Dist CCA 73.3/ 18.2 cm/ sec. Prox ICA 62.1/16.4 cm/sec. Prox ICA 83.3/ 27.6 cm/sec. Mid ICA 75.0/24.0 cm/sec. Mid ICA 87.9/28.7 cm/sec. Dist ICA 90.9/32.2 cm/sec. Dist ICA 89.1/ 29.9 cm/sec. Rt. ICA/CCA = 1.4. Lt. ICA/CCA = 1.4. Prox ECA 84.4/17.0 cm/sec. Prox ECA 79.2/ 13.5 cm/sec. Rt. Vert. 40.5/11.1 cm/sec. Lt. Vert. 55.7/ 15.8 cm/sec. Right Extracranial There is intimal thickening but no significant atheroscler otic plaque noted in the right common carotid artery. There is no significant atherosclerotic plaque noted in the right internal carotid artery. There is no significant atherosclerotic plaque noted in the right external carotid artery. Antegrade flow is noted in the right vertebral artery. Left Extracranial There is intimal thickening but no significant atherosclerotic plaque noted in the le ft common carotid artery. There is heterogeneous, irregular atherosclerotic plaque noted in the left internal carotid artery. There is no significant atherosclerotic plaque noted in the left externa l carotid artery. Antegrade flow is noted in the left vertebral artery. There is heterogeneous, irregular atherosclerotic plaque noted in the left bulb. Procedure Carotid Duplex [id number]. Exam perfor med in department. Interpretation Summary Mild (<50%) stenosis right extracranial internal carotid. Mild (<50%) stenosis left extracranial internal carotid. Flow within the vertebra l arteries is antegrade bilaterally. Ordering Physician: Chaparrita Albrecht Performed By: Kendal Benton RVT : Chaparrita Albrecht DO Date Dictated: 08/24/13 0939 Date Transcribed: 08/29/13 1118 Spray Machine Loader: Signed Immunization Name Dates Details Influenza (3 years and up) on: 16-Jan-2008 Comments: Lot #: [id number] date: 09/10Amount given: 0.5 mlRoute: IMSite given: Left deltoidGiven by: Olivia Bell LPN Influenza (3 years and up) on: 09-Jan-2009 Comments: Lot #[id number]-left deltoidDose0.5mlgiven by Marycarmen Jorge LPN Pneumococcal (2 years and up) on: 29-Aug-2007 Comments: 0.5cc given im lt arm [id number] exp 02-13-08 Family History Unknown Family Member Name Dates Details Father Comments: at 61 from heart dx, ? 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 Comments: 02/18/11 Status: Active Smoking Status Name Dates Details Former smoker Vital Signs Date Test Result Details :57 Temperature 98.4 f Comments: Method: Temporal Pulse 80 /min Comments: Pattern: Regular Respiration Rate 16 /min Comments: Pattern: Unlabored BP Systolic 134 mm[Hg] Comments: Patient Position: Sitting; Cuff Location: Left Arm; Cuff Size: Standard BP Diastolic 80 mm[Hg] Comments: Patient Position: Sitting; Cuff Location: Left Arm; Cuff Size: Standard Weight 157 lb Height 63 in Body Mass Index Calculated 27.81 kg/m2 Body Surface Area Calculated 1.74 m2 :12 Pulse 70 /min Comments: Pattern: Regular Respiration Rate 18 /min O2 SAT 98 % Comments: Room air BP Systolic 126 mm[Hg] Comments: Patient Position: Sitting BP Diastolic 76 mm[Hg] Comments: Patient Position: Sitting :10 Temperature 99.2 f Comments: Method: Temporal Pulse 88 /min Comments: Pattern: Regular Respiration Rate 16 /min Comments: Pattern: Unlabored O2 SAT 97 % Comments: Room air BP Systolic 120 mm[Hg] Comments: Patient Position: Sitting; Cuff Location: Left Arm; Cuff Size: Standard BP Diastolic 78 mm[Hg] Comments: Patient Position: Sitting; Cuff Location: Left Arm; Cuff Size: Standard Weight 161 lb Height 63 in Body Mass Index Calculated 28.52 kg/m2 Body Surface Area Calculated 1.76 m2 :03 Temperature 97.9 f Comments: Method: Temporal Pulse 74 /min Comments: Pattern: Regular Respiration Rate 20 /min Comments: Pattern: Unlabored O2 SAT 98 % Comments: Room air BP Systolic 120 mm[Hg] Comments: Patient Position: Sitting; Cuff Location: Left Arm; Cuff Size: Standard BP Diastolic 78 mm[Hg] Comments: Patient Position: Sitting; Cuff Location: Left Arm; Cuff Size: Standard Weight 161 lb Height 63 in Body Mass Index Calculated 28.52 kg/m2 Body Surface Area Calculated 1.76 m2 :39 Temperature 97.9 f Comments: Method: Temporal Pulse 70 /min Comments: Pattern: Regular Respiration Rate 20 /min Comments: Pattern: Unlabored O2 SAT 97 % Comments: Room air BP Systolic 118 mm[Hg] Comments: Patient Position: Sitting; Cuff Location: Left Arm; Cuff Size: Standard BP Diastolic 78 mm[Hg] Comments: Patient Position: Sitting; Cuff Location: Left Arm; Cuff Size: Standard Weight 161 lb Height 63 in Body Mass Index Calculated 28.52 kg/m2 Body Surface Area Calculated 1.76 m2 :40 Temperature 98.6 f Comments: Method: Temporal Pulse 77 /min Comments: Pattern: Regular Respiration Rate 16 /min Comments: Pattern: Unlabored BP Systolic 122 mm[Hg] Comments: Patient Position: Sitting; Cuff Location: Left Arm; Cuff Size: Standard BP Diastolic 78 mm[Hg] Comments: Patient Position: Sitting; Cuff Location: Left Arm; Cuff Size: Standard Weight 161 lb Height 63 in Body Mass Index Calculated 28.52 kg/m2 Body Surface Area Calculated 1.76 m2 :03 Temperature 97.7 f Comments: Method: Temporal Pulse 81 /min Comments: Pattern: Regular Respiration Rate 16 /min Comments: Pattern: Unlabored BP Systolic 142 mm[Hg] Comments: Patient Position: Sitting; Cuff Location: Left Arm; Cuff Size: Standard BP Diastolic 82 mm[Hg] Comments: Patient Position: Sitting; Cuff Location: Left Arm; Cuff Size: Standard Weight 157 lb Height 63 in Body Mass Index Calculated 27.81 kg/m2 Body Surface Area Calculated 1.74 m2 :19 Temperature 97.7 f Comments: Method: Temporal Pulse 77 /min Comments: Pattern: Regular Respiration Rate 20 /min Comments: Pattern: Unlabored O2 SAT 92 % Comments: Room air BP Systolic 138 mm[Hg] Comments: Patient Position: Sitting; Cuff Location: Left Arm; Cuff Size: Standard BP Diastolic 78 mm[Hg] Comments: Patient Position: Sitting; Cuff Location: Left Arm; Cuff Size: Standard Weight 155 lb Height 63 in Body Mass Index Calculated 27.46 kg/m2 Body Surface Area Calculated 1.74 m2 :57 Temperature 99.2 f Comments: Method: Temporal Pulse 88 /min Comments: Pattern: Regular Respiration Rate 16 /min Comments: Pattern: Unlabored BP Systolic 115 mm[Hg] Comments: Patient Position: Sitting; Cuff Location: Left Arm; Cuff Size: Standard BP Diastolic 74 mm[Hg] Comments: Patient Position: Sitting; Cuff Location: Left Arm; Cuff Size: Standard Weight 155.5 lb Height 63 in Body Mass Index Calculated 27.55 kg/m2 Body Surface Area Calculated 1.74 m2 :26 Temperature 97.2 f Comments: Method: Temporal Pulse 69 /min Comments: Pattern: Regular Respiration Rate 16 /min Comments: Pattern: Unlabored O2 SAT 96 % Comments: Room air BP Systolic 112 mm[Hg] Comments: Patient Position: Sitting; Cuff Location: Left Arm; Cuff Size: Standard BP Diastolic 62 mm[Hg] Comments: Patient Position: Sitting; Cuff Location: Left Arm; Cuff Size: Standard Weight 161 lb Height 63 in Body Mass Index Calculated 28.52 kg/m2 Body Surface Area Calculated 1.76 m2 :34 Temperature 100.5 f Comments: Method: Temporal Pulse 72 /min Comments: Pattern: Regular Respiration Rate 20 /min Comments: Pattern: Unlabored O2 SAT 94 % Comments: Room air BP Systolic 120 mm[Hg] Comments: Patient Position: Sitting; Cuff Location: Left Arm; Cuff Size: Standard BP Diastolic 80 mm[Hg] Comments: Patient Position: Sitting; Cuff Location: Left Arm; Cuff Size: Standard Weight 161 lb Height 63 in Body Mass Index Calculated 28.52 kg/m2 Body Surface Area Calculated 1.76 m2 :02 Temperature 98 f Comments: Method: Temporal Pulse 80 /min Comments: Pattern: Regular Respiration Rate 16 /min Comments: Pattern: Unlabored O2 SAT 96 % Comments: Room air BP Systolic 110 mm[Hg] Comments: Patient Position: Sitting; Cuff Location: Left Arm; Cuff Size: Large BP Diastolic 72 mm[Hg] Comments: Patient Position: Sitting; Cuff Location: Left Arm; Cuff Size: Large Weight 161 lb Height 63 in Body Mass Index Calculated 28.52 kg/m2 Body Surface Area Calculated 1.76 m2 :20 Temperature 96.5 f Comments: Method: Tympanic Pulse 89 /min Comments: Pattern: Regular Respiration Rate 18 /min Comments: Pattern: Unlabored O2 SAT 96 % Comments: Room air BP Systolic 122 mm[Hg] Comments: Patient Position: Sitting; Cuff Location: Left Arm; Cuff Size: Standard BP Diastolic 66 mm[Hg] Comments: Patient Position: Sitting; Cuff Location: Left Arm; Cuff Size: Standard Weight 168 lb Height 63 in Body Mass Index Calculated 29.76 kg/m2 Body Surface Area Calculated 1.8 m2 :17 Temperature 97.2 f Comments: Method: Temporal Pulse 82 /min Comments: Pattern: Regular Respiration Rate 16 /min Comments: Pattern: Unlabored O2 SAT 94 % Comments: Room air BP Systolic 122 mm[Hg] Comments: Patient Position: Sitting; Cuff Location: Left Arm; Cuff Size: Standard BP Diastolic 76 mm[Hg] Comments: Patient Position: Sitting; Cuff Location: Left Arm; Cuff Size: Standard Weight 168 lb Height 63 in Body Mass Index Calculated 29.76 kg/m2 Body Surface Area Calculated 1.8 m2 :43 Temperature 99.4 f Comments: Method: Temporal Pulse 76 /min Comments: Pattern: Regular Respiration Rate 16 /min Comments: Pattern: Unlabored BP Systolic 122 mm[Hg] Comments: Patient Position: Sitting; Cuff Location: Left Arm; Cuff Size: Standard BP Diastolic 76 mm[Hg] Comments: Patient Position: Sitting; Cuff Location: Left Arm; Cuff Size: Standard Weight 175 lb Height 63 in Body Mass Index Calculated 31 kg/m2 Body Surface Area Calculated 1.83 m2 :45 Temperature 97.4 f Comments: Method: Temporal Pulse 86 /min Comments: Pattern: Regular Respiration Rate 20 /min Comments: Pattern: Unlabored O2 SAT 94 % Comments: Room air BP Systolic 120 mm[Hg] Comments: Patient Position: Sitting; Cuff Location: Left Arm; Cuff Size: Large BP Diastolic 80 mm[Hg] Comments: Patient Position: Sitting; Cuff Location: Left Arm; Cuff Size: Large Weight 171 lb Height 63 in Body Mass Index Calculated 30.29 kg/m2 Body Surface Area Calculated 1.81 m2 :07 Pulse 78 /min Comments: Pattern: Regular Respiration Rate 16 /min O2 SAT 95 % Comments: Room air BP Systolic 160 mm[Hg] Comments: Patient Position: Sitting BP Diastolic 88 mm[Hg] Comments: Patient Position: Sitting Weight 173 lb Height 63 in Body Mass Index Calculated 30.65 kg/m2 Body Surface Area Calculated 1.82 m2 :18 Temperature 97.8 f Comments: Method: Temporal Pulse 72 /min Comments: Pattern: Regular Respiration Rate 16 /min Comments: Pattern: Unlabored O2 SAT 95 % Comments: Room air BP Systolic 118 mm[Hg] Comments: Patient Position: Sitting; Cuff Location: Left Arm; Cuff Size: Standard BP Diastolic 72 mm[Hg] Comments: Patient Position: Sitting; Cuff Location: Left Arm; Cuff Size: Standard Weight 173 lb Height 63 in Body Mass Index Calculated 30.65 kg/m2 Body Surface Area Calculated 1.82 m2 :05 Temperature 97.6 f Comments: Method: Temporal Pulse 72 /min Comments: Pattern: Regular Respiration Rate 16 /min Comments: Pattern: Unlabored O2 SAT 97 % Comments: Room air BP Systolic 136 mm[Hg] Comments: Patient Position: Sitting; Cuff Location: Left Arm; Cuff Size: Standard BP Diastolic 76 mm[Hg] Comments: Patient Position: Sitting; Cuff Location: Left Arm; Cuff Size: Standard Weight 173 lb Height 63 in Body Mass Index Calculated 30.65 kg/m2 Body Surface Area Calculated 1.82 m2 :13 BP Systolic 128 mm[Hg] Comments: Patient Position: Sitting BP Diastolic 72 mm[Hg] Comments: Patient Position: Sitting :16 Temperature 98 f Pulse 85 /min Comments: Pattern: Regular Respiration Rate 17 /min Comments: Pattern: Unlabored O2 SAT 93 % Comments: Room air BP Systolic 138 mm[Hg] Comments: Patient Position: Sitting; Cuff Location: Left Arm; Cuff Size: Standard BP Diastolic 90 mm[Hg] Comments: Patient Position: Sitting; Cuff Location: Left Arm; Cuff Size: Standard Weight 176.5 lb Height 63 in Body Mass Index Calculated 31.27 kg/m2 Body Surface Area Calculated 1.83 m2 :33 Temperature 98.4 f Comments: Method: Temporal Pulse 74 /min Comments: Pattern: Regular Respiration Rate 15 /min Comments: Pattern: Unlabored BP Systolic 128 mm[Hg] Comments: Patient Position: Sitting; Cuff Location: Left Arm; Cuff Size: Standard BP Diastolic 76 mm[Hg] Comments: Patient Position: Sitting; Cuff Location: Left Arm; Cuff Size: Standard Weight 170 lb Height 63 in Body Mass Index Calculated 30.11 kg/m2 Body Surface Area Calculated 1.8 m2 :53 Temperature 97.2 f Comments: Method: Oral Pulse 90 /min Comments: Pattern: Regular Respiration Rate 16 /min Comments: Pattern: Unlabored BP Systolic 124 mm[Hg] Comments: Patient Position: Sitting; Cuff Location: Left Arm; Cuff Size: Standard BP Diastolic 82 mm[Hg] Comments: Patient Position: Sitting; Cuff Location: Left Arm; Cuff Size: Standard Weight 168 lb Height 63 in Body Mass Index Calculated 29.76 kg/m2 Body Surface Area Calculated 1.8 m2 :16 Temperature 99.6 f Comments: Method: Temporal Pulse 72 /min Comments: Pattern: Regular Respiration Rate 16 /min Comments: Pattern: Unlabored O2 SAT 95 % Comments: Room air BP Systolic 144 mm[Hg] Comments: Patient Position: Sitting; Cuff Location: Left Arm; Cuff Size: Standard BP Diastolic 82 mm[Hg] Comments: Patient Position: Sitting; Cuff Location: Left Arm; Cuff Size: Standard Weight 168 lb Height 63 in Body Mass Index Calculated 29.76 kg/m2 Body Surface Area Calculated 1.8 m2 :07 Temperature 100 f Comments: Method: Temporal Pulse 84 /min Comments: Pattern: Regular Respiration Rate 16 /min Comments: Pattern: Unlabored O2 SAT 94 % Comments: Room air BP Systolic 112 mm[Hg] Comments: Patient Position: Sitting; Cuff Location: Left Arm; Cuff Size: Large BP Diastolic 70 mm[Hg] Comments: Patient Position: Sitting; Cuff Location: Left Arm; Cuff Size: Large Weight 170 lb Height 63 in Body Mass Index Calculated 30.11 kg/m2 Body Surface Area Calculated 1.8 m2 :29 Temperature 98 f Comments: Method: Temporal Pulse 77 /min Comments: Pattern: Regular Respiration Rate 17 /min Comments: Pattern: Unlabored BP Systolic 116 mm[Hg] Comments: Patient Position: Sitting; Cuff Location: Left Arm; Cuff Size: Standard BP Diastolic 68 mm[Hg] Comments: Patient Position: Sitting; Cuff Location: Left Arm; Cuff Size: Standard Weight 169 lb Height 63 in Body Mass Index Calculated 29.94 kg/m2 Body Surface Area Calculated 1.8 m2 :34 Temperature 98.4 f Pulse 86 /min Comments: Pattern: Regular Respiration Rate 18 /min Comments: Pattern: Unlabored O2 SAT 96 % Comments: Room air BP Systolic 118 mm[Hg] Comments: Patient Position: Sitting; Cuff Location: Left Arm; Cuff Size: Standard BP Diastolic 80 mm[Hg] Comments: Patient Position: Sitting; Cuff Location: Left Arm; Cuff Size: Standard Weight 164 lb Height 63 in Body Mass Index Calculated 29.05 kg/m2 Body Surface Area Calculated 1.78 m2 :58 Temperature 98.2 f Comments: Method: Oral Pulse 74 /min Comments: Pattern: Regular Respiration Rate 16 /min Comments: Pattern: Unlabored BP Systolic 136 mm[Hg] Comments: Patient Position: Sitting; Cuff Location: Left Arm; Cuff Size: Standard BP Diastolic 70 mm[Hg] Comments: Patient Position: Sitting; Cuff Location: Left Arm; Cuff Size: Standard Weight 164 lb Height 63 in Body Mass Index Calculated 29.05 kg/m2 Body Surface Area Calculated 1.78 m2 :10 Temperature 97.6 f Comments: Method: Oral Pulse 78 /min Comments: Pattern: Regular Respiration Rate 16 /min Comments: Pattern: Unlabored BP Systolic 120 mm[Hg] Comments: Patient Position: Sitting; Cuff Location: Left Arm; Cuff Size: Large BP Diastolic 76 mm[Hg] Comments: Patient Position: Sitting; Cuff Location: Left Arm; Cuff Size: Large Weight 168 lb Height 63 in Body Mass Index Calculated 29.76 kg/m2 Body Surface Area Calculated 1.8 m2 :22 BP Systolic 92 mm[Hg] Comments: Patient Position: Sitting BP Diastolic 58 mm[Hg] Comments: Patient Position: Sitting :34 Temperature 98.8 f Pulse 60 /min Comments: Pattern: Regular Respiration Rate 18 /min Comments: Pattern: Unlabored BP Systolic 88 mm[Hg] Comments: Patient Position: Sitting; Cuff Location: Left Arm; Cuff Size: Standard BP Diastolic 50 mm[Hg] Comments: Patient Position: Sitting; Cuff Location: Left Arm; Cuff Size: Standard Weight 172 lb Height 63 in Body Mass Index Calculated 30.47 kg/m2 Body Surface Area Calculated 1.81 m2 :24 Temperature 98 f Pulse 84 /min Comments: Pattern: Regular Respiration Rate 16 /min Comments: Pattern: Unlabored BP Systolic 128 mm[Hg] Comments: Patient Position: Sitting; Cuff Location: Left Arm; Cuff Size: Standard BP Diastolic 80 mm[Hg] Comments: Patient Position: Sitting; Cuff Location: Left Arm; Cuff Size: Standard Weight 169 lb Height 63 in Body Mass Index Calculated 29.94 kg/m2 Body Surface Area Calculated 1.8 m2 :49 Temperature 98.6 f Pulse 80 /min Comments: Pattern: Regular Respiration Rate 16 /min Comments: Pattern: Unlabored BP Systolic 138 mm[Hg] Comments: Patient Position: Sitting; Cuff Location: Left Arm; Cuff Size: Large BP Diastolic 86 mm[Hg] Comments: Patient Position: Sitting; Cuff Location: Left Arm; Cuff Size: Large Weight 168 lb Height 63 in Body Mass Index Calculated 29.76 kg/m2 Body Surface Area Calculated 1.8 m2 :50 Temperature 97.8 f Pulse 85 /min Comments: Pattern: Regular Respiration Rate 16 /min Comments: Pattern: Unlabored BP Systolic 134 mm[Hg] Comments: Patient Position: Sitting; Cuff Location: Left Arm; Cuff Size: Large BP Diastolic 96 mm[Hg] Comments: Patient Position: Sitting; Cuff Location: Left Arm; Cuff Size: Large Height 63 in :01 Temperature 98.3 f Comments: Method: Oral Pulse 65 /min Comments: Pattern: Regular Respiration Rate 16 /min Comments: Pattern: Unlabored O2 SAT 97 % Comments: Room air BP Systolic 124 mm[Hg] Comments: Patient Position: Sitting; Cuff Location: Left Arm; Cuff Size: Standard BP Diastolic 74 mm[Hg] Comments: Patient Position: Sitting; Cuff Location: Left Arm; Cuff Size: Standard Weight 170 lb Height 63 in Body Mass Index Calculated 30.11 kg/m2 Body Surface Area Calculated 1.8 m2 :07 Temperature 97.6 f Comments: Method: Tympanic Pulse 70 /min Comments: Pattern: Regular Respiration Rate 18 /min Comments: Pattern: Unlabored O2 SAT 98 % Comments: Room air BP Systolic 124 mm[Hg] Comments: Patient Position: Sitting; Cuff Location: Left Arm; Cuff Size: Standard BP Diastolic 78 mm[Hg] Comments: Patient Position: Sitting; Cuff Location: Left Arm; Cuff Size: Standard Weight 168 lb Height 63 in Body Mass Index Calculated 29.76 kg/m2 Body Surface Area Calculated 1.8 m2 :29 Temperature 99.2 f Pulse 72 /min Comments: Pattern: Regular Respiration Rate 16 /min Comments: Pattern: Unlabored BP Systolic 106 mm[Hg] Comments: Patient Position: Sitting; Cuff Location: Left Arm; Cuff Size: Large BP Diastolic 64 mm[Hg] Comments: Patient Position: Sitting; Cuff Location: Left Arm; Cuff Size: Large Weight 168 lb Height 63 in Body Mass Index Calculated 29.76 kg/m2 Body Surface Area Calculated 1.8 m2 :38 Temperature 98.5 f Pulse 78 /min Comments: Pattern: Regular Respiration Rate 16 /min Comments: Pattern: Unlabored BP Systolic 138 mm[Hg] Comments: Patient Position: Sitting; Cuff Location: Left Arm; Cuff Size: Large BP Diastolic 84 mm[Hg] Comments: Patient Position: Sitting; Cuff Location: Left Arm; Cuff Size: Large Weight 164 lb Height 63 in Body Mass Index Calculated 29.05 kg/m2 Body Surface Area Calculated 1.78 m2 :45 Temperature 97.2 f Pulse 76 /min Comments: Pattern: Regular Respiration Rate 18 /min Comments: Pattern: Unlabored BP Systolic 120 mm[Hg] Comments: Patient Position: Sitting; Cuff Location: Left Arm; Cuff Size: Large BP Diastolic 80 mm[Hg] Comments: Patient Position: Sitting; Cuff Location: Left Arm; Cuff Size: Large Weight 170 lb Height 63 in Body Mass Index Calculated 30.11 kg/m2 Body Surface Area Calculated 1.8 m2 :48 Temperature 97.7 f Pulse 68 /min Comments: Pattern: Regular Respiration Rate 16 /min Comments: Pattern: Unlabored BP Systolic 124 mm[Hg] Comments: Patient Position: Sitting; Cuff Location: Left Arm; Cuff Size: Large BP Diastolic 84 mm[Hg] Comments: Patient Position: Sitting; Cuff Location: Left Arm; Cuff Size: Large Weight 172 lb Height 63 in Body Mass Index Calculated 30.47 kg/m2 Body Surface Area Calculated 1.81 m2 :37 Temperature 99.2 f Comments: Method: Oral Pulse 80 /min Comments: Pattern: Regular Respiration Rate 16 /min O2 SAT 95 % Comments: Room air BP Systolic 138 mm[Hg] Comments: Patient Position: Sitting; Cuff Location: Left Arm; Cuff Size: Standard BP Diastolic 78 mm[Hg] Comments: Patient Position: Sitting; Cuff Location: Left Arm; Cuff Size: Standard Weight 167 lb Height 63 in Body Mass Index Calculated 29.58 kg/m2 Body Surface Area Calculated 1.79 m2 :04 Temperature 96 f Pulse 68 /min Comments: Pattern: Regular Respiration Rate 18 /min Comments: Pattern: Unlabored BP Systolic 124 mm[Hg] Comments: Patient Position: Sitting; Cuff Location: Left Arm; Cuff Size: Large BP Diastolic 74 mm[Hg] Comments: Patient Position: Sitting; Cuff Location: Left Arm; Cuff Size: Large Weight 167 lb Height 63 in Body Mass Index Calculated 29.58 kg/m2 Body Surface Area Calculated 1.79 m2 :01 Temperature 97.9 f Pulse 64 /min Comments: Pattern: Regular Respiration Rate 18 /min Comments: Pattern: Unlabored BP Systolic 122 mm[Hg] Comments: Patient Position: Sitting; Cuff Location: Left Arm; Cuff Size: Standard BP Diastolic 82 mm[Hg] Comments: Patient Position: Sitting; Cuff Location: Left Arm; Cuff Size: Standard Weight 163.125 lb Height 63 in Body Mass Index Calculated 28.9 kg/m2 Body Surface Area Calculated 1.77 m2 :30 Temperature 97.2 f Comments: Method: Oral Pulse 64 /min Comments: Pattern: Regular Respiration Rate 20 /min Comments: Pattern: Unlabored BP Systolic 118 mm[Hg] Comments: Patient Position: Sitting; Cuff Location: Right Arm; Cuff Size: Large BP Diastolic 80 mm[Hg] Comments: Patient Position: Sitting; Cuff Location: Right Arm; Cuff Size: Large Weight 185 lb Height 63 in Body Mass Index Calculated 32.77 kg/m2 Body Surface Area Calculated 1.87 m2 :49 Temperature 96.8 f Pulse 76 /min Comments: Pattern: Regular Respiration Rate 18 /min Comments: Pattern: Unlabored BP Systolic 128 mm[Hg] Comments: Patient Position: Sitting; Cuff Location: Left Arm; Cuff Size: Large BP Diastolic 86 mm[Hg] Comments: Patient Position: Sitting; Cuff Location: Left Arm; Cuff Size: Large Weight 185 lb Height 63 in Body Mass Index Calculated 32.77 kg/m2 Body Surface Area Calculated 1.87 m2 :55 Temperature 96.9 f Pulse 72 /min Comments: Pattern: Regular Respiration Rate 16 /min Comments: Pattern: Unlabored BP Systolic 136 mm[Hg] Comments: Patient Position: Sitting; Cuff Location: Left Arm; Cuff Size: Large BP Diastolic 80 mm[Hg] Comments: Patient Position: Sitting; Cuff Location: Left Arm; Cuff Size: Large Weight 187 lb Height 63 in Body Mass Index Calculated 33.13 kg/m2 Body Surface Area Calculated 1.88 m2 :18 Temperature 97.7 f Pulse 68 /min Comments: Pattern: Regular Respiration Rate 16 /min Comments: Pattern: Unlabored BP Systolic 108 mm[Hg] Comments: Patient Position: Sitting; Cuff Location: Left Arm; Cuff Size: Large BP Diastolic 80 mm[Hg] Comments: Patient Position: Sitting; Cuff Location: Left Arm; Cuff Size: Large Weight 189 lb :36 Temperature 99.2 f Comments: Method: Oral Pulse 88 /min Comments: Pattern: Regular Respiration Rate 18 /min Comments: Pattern: Unlabored O2 SAT 95 % Comments: Room air BP Systolic 136 mm[Hg] Comments: Patient Position: Sitting; Cuff Location: Left Arm; Cuff Size: Standard BP Diastolic 84 mm[Hg] Comments: Patient Position: Sitting; Cuff Location: Left Arm; Cuff Size: Standard Weight 188 lb :27 Temperature 98.1 f Pulse 76 /min Comments: Pattern: Regular Respiration Rate 18 /min Comments: Pattern: Unlabored BP Systolic 118 mm[Hg] Comments: Patient Position: Sitting; Cuff Location: Left Arm; Cuff Size: Standard BP Diastolic 84 mm[Hg] Comments: Patient Position: Sitting; Cuff Location: Left Arm; Cuff Size: Standard Weight 188 lb :34 Temperature 97.6 f Pulse 76 /min Comments: Pattern: Regular Respiration Rate 18 /min Comments: Pattern: Unlabored BP Systolic 128 mm[Hg] Comments: Patient Position: Sitting; Cuff Location: Left Arm; Cuff Size: Standard BP Diastolic 76 mm[Hg] Comments: Patient Position: Sitting; Cuff Location: Left Arm; Cuff Size: Standard Weight 180 lb :14 BP Systolic 124 mm[Hg] Comments: Patient Position: Sitting; Cuff Location: Right Arm; Cuff Size: Standard BP Diastolic 76 mm[Hg] Comments: Patient Position: Sitting; Cuff Location: Right Arm; Cuff Size: Standard :14 BP Systolic 130 mm[Hg] Comments: Patient Position: Sitting; Cuff Location: Left Arm; Cuff Size: Standard BP Diastolic 78 mm[Hg] Comments: Patient Position: Sitting; Cuff Location: Left Arm; Cuff Size: Standard :02 Temperature 97.1 f Comments: Method: Undefined Pulse 64 /min Comments: Pattern: Regular Respiration Rate 18 /min Comments: Pattern: Undefined BP Systolic 158 mm[Hg] Comments: Patient Position: Sitting; Cuff Location: Left Arm; Cuff Size: Standard BP Diastolic 74 mm[Hg] Comments: Patient Position: Sitting; Cuff Location: Left Arm; Cuff Size: Standard Weight 178 lb Height 0 in Head Circumference 0.00 cm :44 Pulse 80 /min Comments: Pattern: Regular Respiration Rate 16 /min Comments: Pattern: Unlabored BP Systolic 138 mm[Hg] Comments: Patient Position: Supine; Cuff Location: Left Arm; Cuff Size: Standard BP Diastolic 78 mm[Hg] Comments: Patient Position: Supine; Cuff Location: Left Arm; Cuff Size: Standard Weight 0 lb Height 64 in Head Circumference 0.00 cm :15 Temperature 97.8 f Comments: Method: Oral Pulse 80 /min Comments: Pattern: Regular Respiration Rate 16 /min Comments: Pattern: Unlabored BP Systolic 118 mm[Hg] Comments: Patient Position: Supine; Cuff Location: Left Arm; Cuff Size: Standard BP Diastolic 76 mm[Hg] Comments: Patient Position: Supine; Cuff Location: Left Arm; Cuff Size: Standard Weight 0 lb Height 64 in Head Circumference 0.00 cm :34 Temperature 98.1 f Comments: Method: Undefined Pulse 76 /min Comments: Pattern: Regular Respiration Rate 18 /min Comments: Pattern: Undefined BP Systolic 132 mm[Hg] Comments: Patient Position: Sitting; Cuff Location: Left Arm; Cuff Size: Large BP Diastolic 90 mm[Hg] Comments: Patient Position: Sitting; Cuff Location: Left Arm; Cuff Size: Large Weight 171 lb Height 0 in Head Circumference 0.00 cm :14 Temperature 98.4 f Comments: Method: Undefined Pulse 76 /min Comments: Pattern: Regular Respiration Rate 18 /min Comments: Pattern: Undefined BP Systolic 140 mm[Hg] Comments: Patient Position: Sitting; Cuff Location: Left Arm; Cuff Size: Large BP Diastolic 92 mm[Hg] Comments: Patient Position: Sitting; Cuff Location: Left Arm; Cuff Size: Large Weight 168 lb Height 64.5 in Body Mass Index Calculated 28.39 kg/m2 Body Surface Area Calculated 1.83 m2 Head Circumference 0.00 cm :29 Pulse 72 /min Comments: Pattern: Regular Respiration Rate 16 /min Comments: Pattern: Unlabored BP Systolic 130 mm[Hg] Comments: Patient Position: Sitting; Cuff Location: Left Arm; Cuff Size: Standard BP Diastolic 82 mm[Hg] Comments: Patient Position: Sitting; Cuff Location: Left Arm; Cuff Size: Standard Weight 0 lb Height 0 in Head Circumference 0.00 cm :29 Temperature 98.3 f Comments: Method: Undefined Pulse 76 /min Comments: Pattern: Regular Respiration Rate 18 /min Comments: Pattern: Undefined BP Systolic 138 mm[Hg] Comments: Patient Position: Sitting; Cuff Location: Left Arm; Cuff Size: Standard BP Diastolic 78 mm[Hg] Comments: Patient Position: Sitting; Cuff Location: Left Arm; Cuff Size: Standard Weight 166 lb Height 0 in Head Circumference 0.00 cm :23 Pulse 80 /min Comments: Pattern: Regular Respiration Rate 16 /min Comments: Pattern: Undefined BP Systolic 114 mm[Hg] Comments: Patient Position: Sitting; Cuff Location: Right Arm; Cuff Size: Large BP Diastolic 60 mm[Hg] Comments: Patient Position: Sitting; Cuff Location: Right Arm; Cuff Size: Large Weight 171 lb Height 0 in Head Circumference 0.00 cm :05 Pulse 80 /min Comments: Pattern: Regular Respiration Rate 16 /min Comments: Pattern: Unlabored BP Systolic 138 mm[Hg] Comments: Patient Position: Sitting; Cuff Location: Left Arm; Cuff Size: Standard BP Diastolic 84 mm[Hg] Comments: Patient Position: Sitting; Cuff Location: Left Arm; Cuff Size: Standard Weight 185.1875 lb Height 63.75 in Body Mass Index Calculated 32.04 kg/m2 Body Surface Area Calculated 1.89 m2 Head Circumference 0.00 cm :57 Temperature 98.7 f Comments: Method: Undefined Pulse 68 /min Comments: Pattern: Regular Respiration Rate 16 /min Comments: Pattern: Undefined BP Systolic 132 mm[Hg] Comments: Patient Position: Sitting; Cuff Location: Right Arm; Cuff Size: Standard BP Diastolic 72 mm[Hg] Comments: Patient Position: Sitting; Cuff Location: Right Arm; Cuff Size: Standard Weight 0 lb Height 0 in Head Circumference 0.00 cm :14 Temperature 98.1 f Comments: Method: Undefined Pulse 68 /min Comments: Pattern: Regular Respiration Rate 16 /min Comments: Pattern: Undefined BP Systolic 140 mm[Hg] Comments: Patient Position: Sitting; Cuff Location: Right Arm; Cuff Size: Large BP Diastolic 76 mm[Hg] Comments: Patient Position: Sitting; Cuff Location: Right Arm; Cuff Size: Large Weight 184 lb Height 63.75 in Body Mass Index Calculated 31.83 kg/m2 Body Surface Area Calculated 1.88 m2 Head Circumference 0.00 cm Results Date Description Value Details :33 Albumin/Creatinine Ratio,Urine Comments: A courtesy copy of this report has been sent [phone].PATIENT WAS FASTINGPERFORMED BY: [facility]6370 [facility] [id number] Alb/Creat Ratio 4475.5 {mg/g_creat} (Abnormal) Range: 0.0-30.0 Comments: Normal: 0.0 - 30.0 Albuminuria: 31.0 - 300.0 Clinical albuminuria: >300.0 Albumin, Urine 2085.6 ug/mL (Normal) Comments: Results confirmed ondilution. Creatinine, Urine 46.6 mg/dL (Normal) 06-Mar-20189:33 CBC With Differential/Platelet Comments: A courtesy copy of this report has been sent [phone].PATIENT WAS FASTINGPERFORMED BY: [facility]CoSaint [facility]'s Medical CenterHdvzhw2144 [facility] [id number] Information: ADD CBC Immature Grans (Abs) 0.0 {x10E3/uL} Range: 0.0-0.1 (Normal) Immature Granulocytes 0 % (Normal) Baso (Absolute) 0.1 {x10E3/uL} Range: 0.0-0.2 (Normal) Eos (Absolute) 0.1 {x10E3/uL} Range: 0.0-0.4 (Normal) Monocytes(Absolute) 0.5 {x10E3/uL} Range: 0.1-0.9 (Normal) Lymphs (Absolute) 0.8 {x10E3/uL} Range: 0.7-3.1 (Normal) Neutrophils (Absolute) 3.3 {x10E3/uL} Range: 1.4-7.0 (Normal) Basos 1 % (Normal) Eos 2 % (Normal) Monocytes 10 % (Normal) Lymphs 17 % (Normal) Neutrophils 70 % (Normal) Platelets 174 {x10E3/uL} Range: 150-379 (Normal) RDW 14.1 % (Normal) Range: 12.3-15.4 MCHC 32.6 g/dL (Normal) Range: 31.5-35.7 MCH 29.3 pg (Normal) Range: 26.6-33.0 MCV 90 fL (Normal) Range: 79-97 Hematocrit 41.1 % (Normal) Range: 34.0-46.6 Hemoglobin 13.4 g/dL (Normal) Range: 11.1-15.9 RBC 4.57 {x10E6/uL} Range: 3.77-5.28 (Normal) WBC 4.7 {x10E3/uL} Range: 3.4-10.8 (Normal) Magnesium 1.8 mg/dL (Normal) Comments: A courtesy copy of this report has been sent [phone].PATIENT WAS FASTINGPERFORMED BY: [facility] Centerlin6370 [facility] [place] [id number] :33 Range: 1.6-2.3 :33 Microscopic Examination Comments: A courtesy copy of this report has been sent [phone].PATIENT WAS FASTINGPERFORMED BY: [facility] Trksxu9243 [facility]in [place] [id number] Bacteria Few (Normal) Mucus Threads Present (Normal) Epithelial Cells (non 0-10 {/hpf} Range: 0 - 10 renal) (Normal) RBC 0-2 {/hpf} (Normal) Range: 0 - 2 WBC 0-5 {/hpf} (Normal) Range: 0 - 5 : PTH, Intact 29 pg/mL (Normal) Comments: A courtesy copy of this report has been sent [phone].PATIENT WAS FASTINGPERFORMED BY: [facility] Exxjqv2769 [facility] Centerblin [place] [id number] 33 Range: 15-65 :33 Renal Panel (10) Comments: A courtesy copy of this report has been sent [phone].PATIENT WAS FASTINGPERFORMED BY: [facility] EnergySt. [facility] HospitalDsotpq9244 [address] [facility] [place] [id number] Phosphorus 4.0 mg/dL (Normal) Range: 2.5-4.5 :33 Vitamin D Hydroxy (13206) Comments: A courtesy copy of this report has been sent [phone].PATIENT WAS FASTINGPERFORMED BY: [facility] Quvlsx3704 [address] [facility] HospitalDublin [place] [id number] Vitamin D, 25-Hydroxy 36.8 ng/mL (Normal) Range: 30.0-100.0 Comments: Vitamin D deficiency has been defined by the [place] of[place]icine and an Endocrine Society practice guideline as alevel of serum 25-OH vitamin D less than 20 ng/mL (1,2).The Endocrine Society went on to further define vitamin Dinsufficiency as a level between 21 and 29 ng/mL (2).1. IOM ([place] of Medicine). 2010. Dietary reference intakes for calcium and D. [place]: The National Academies Press.2. Mira MF, Rosette LOPEZ, Tommy SWAIN, et al. Evaluation, treatment, and prevention of vitamin D deficiency: an Endocrine Society clinical practice guideline. JCEM. 2010; 96(7):1911-30. :33 URINALYSIS, W/ MICRO (94012) Comments: A courtesy copy of this report has been sent [phone].PATIENT WAS FASTINGPERFORMED BY: [facility] [place] [place] [id number] Microscopic Examination See below: (Normal) Comments: Microscopic was indicated and was performed. Nitrite, Urine Negative (Normal) Urobilinogen,Semi-Qn 0.2 mg/dL (Normal) Range: 0.2-1.0 Bilirubin Negative (Normal) Occult Blood Negative (Normal) Ketones Negative (Normal) Glucose Negative (Normal) Protein 3+ (Abnormal) WBC Esterase Negative (Normal) Appearance Clear (Normal) Urine-Color Yellow (Normal) pH 5.5 (Normal) Range: 5.0-7.5 Specific [place] 1.012 (Normal) Range: 1.005-1.030 :33 LIPID PANEL (71556) Comments: A courtesy copy of this report has been sent [phone].PATIENT WAS FASTINGPERFORMED BY: Pembe Panjur6370 [facility] [id number] LDL/HDL Ratio 1.4 {ratio} (Normal) Range: 0.0-3.2 Comments: LDL/HDL Ratio Men Women 1/2 Avg.Risk 1.0 1.5 Av g.Risk 3.6 3.2 2X Avg.Risk 6.2 5.0 3X Avg.Risk 8.0 6.1 LDL Cholesterol Calc 93 mg/dL (Normal) Range: 0-99 VLDL Cholesterol Cesar 26 mg/dL (Normal) Range: 5-40 HDL Cholesterol 67 mg/dL (Normal) Triglycerides 131 mg/dL (Normal) Range: 0-149 Cholesterol, Total 186 mg/dL (Normal) Range: 100-199 :33 METABOLIC PANEL, COMPREHENSIVE Comments: A courtesy copy of this report has been sent [phone].PATIENT WAS FASTINGPERFORMED BY: LabCoSaint Michael's Medical CenterUarjrw0926 [facility] [id number] (62206) ALT (SGPT) 11 [iU]/L (Normal) Range: 0-32 AST (SGOT) 20 [iU]/L (Normal) Range: 0-40 Alkaline Phosphatase 70 [iU]/L (Normal) Range: 39-117 Bilirubin, Total 0.3 mg/dL (Normal) Range: 0.0-1.2 A/G Ratio 1.8 (Normal) Range: 1.2-2.2 Globulin, Total 2.0 g/dL (Normal) Range: 1.5-4.5 Albumin 3.6 g/dL (Normal) Range: 3.5-4.8 Protein, Total 5.6 g/dL (Abnormal) Range: 6.0-8.5 Calcium 9.4 mg/dL (Normal) Range: 8.7-10.3 Carbon Dioxide, Total 25 mmol/L (Normal) Range: 20-29 Chloride 105 mmol/L (Normal) Range: 96-106 Potassium 4.1 mmol/L (Normal) Range: 3.5-5.2 Sodium 144 mmol/L (Normal) Range: 134-144 BUN/Creatinine Ratio 19 (Normal) Range: 12-28 eGFR If Africn Am 40 mL/min/1.73 (Abnormal) eGFR If NonAfricn Am 34 mL/min/1.73 (Abnormal) Creatinine 1.45 mg/dL (Abnormal) Range: 0.57-1.00 BUN 28 mg/dL (Abnormal) Range: 8-27 Glucose 162 mg/dL (Abnormal) Range: 65-99 25-Hwh-119093:24 HgA1C , Office (86623) HgA1C , Office 6.5 % (Normal) Range: 4.6 - 7.1 :33 HGB A1C (77573) Comments: A courtesy copy of this report has been sent [phone].PATIENT WAS FASTINGPERFORMED BY: [facility]6[address] [facility] [id number] Hemoglobin A1c 6.3 % (Abnormal) Range: 4.8-5.6 Comments: . Prediabetes: 5.7 - 6.4 Diabetes: >6.4 Glycemic control for adults with diabetes: <7.0 :14 LIPID PANEL (15877) Comments: PATIENT WAS FASTINGPERFORMED BY: [facility]6[address] [facility] [id number] LDL/HDL Ratio 1.1 {ratio} (Normal) Range: 0.0-3.2 Comments: LDL/HDL Ratio Men Women 1/2 Avg.Risk 1.0 1.5 Av g.Risk 3.6 3.2 2X Avg.Risk 6.2 5.0 3X Avg.Risk 8.0 6.1 LDL Cholesterol Calc 86 mg/dL (Normal) Range: 0-99 VLDL Cholesterol Cesar 17 mg/dL (Normal) Range: 5-40 HDL Cholesterol 80 mg/dL (Normal) Triglycerides 84 mg/dL (Normal) Range: 0-149 Cholesterol, Total 183 mg/dL (Normal) Range: 100-199 :14 Vitamin D Hydroxy (29664) Comments: PATIENT WAS FASTINGPERFORMED BY: [facility]6370 [facility] [id number] Vitamin D, 25-Hydroxy 37.8 ng/mL (Normal) Range: 30.0-100.0 Comments: Vitamin D deficiency has been defined by the [place] of[place]icine and an Endocrine Society practice guideline as alevel of serum 25-OH vitamin D less than 20 ng/mL (1,2).The Endocrine Society went on to further define vitamin Dinsufficiency as a level between 21 and 29 ng/mL (2).1. IOM ([place] of Medicine). 2010. Dietary reference intakes for calcium and D. [place]: The National Academies Press.2. Mira MF, Rosette LOPEZ, Tommy SWAIN, et al. Evaluation, treatment, and prevention of vitamin D deficiency: an Endocrine Society clinical practice guideline. JCEM. 2010; 96(7):1911-30. :14 CBC with auto diff (49452) Comments: PATIENT WAS FASTINGPERFORMED BY: NVC LightingCarlsbad Medical CenterSkcwry7279 [facility] [id number] Immature Grans (Abs) 0.0 {x10E3/uL} (Normal) Range: 0.0-0.1 Immature Granulocytes 0 % (Normal) Baso (Absolute) 0.0 {x10E3/uL} (Normal) Range: 0.0-0.2 Eos (Absolute) 0.1 {x10E3/uL} (Normal) Range: 0.0-0.4 Monocytes(Absolute) 0.4 {x10E3/uL} (Normal) Range: 0.1-0.9 Lymphs (Absolute) 0.8 {x10E3/uL} (Normal) Range: 0.7-3.1 Neutrophils (Absolute) 3.1 {x10E3/uL} (Normal) Range: 1.4-7.0 Basos 0 % (Normal) Eos 2 % (Normal) Monocytes 10 % (Normal) Lymphs 17 % (Normal) Neutrophils 71 % (Normal) Platelets 143 {x10E3/uL} (Abnormal) Range: 150-379 RDW 13.9 % (Normal) Range: 12.3-15.4 MCHC 33.5 g/dL (Normal) Range: 31.5-35.7 MCH 29.2 pg (Normal) Range: 26.6-33.0 MCV 87 fL (Normal) Range: 79-97 Hematocrit 37.6 % (Normal) Range: 34.0-46.6 Hemoglobin 12.6 g/dL (Normal) Range: 11.1-15.9 RBC 4.31 {x10E6/uL} (Normal) Range: 3.77-5.28 WBC 4.5 {x10E3/uL} (Normal) Range: 3.4-10.8 :14 METABOLIC PANEL, COMPREHENSIVE Comments: PATIENT WAS FASTINGPERFORMED BY: Your EnergyCoSaint Michael's Medical CenterEjlmjd9786 [facility] [id number] (25285) ALT (SGPT) 10 [iU]/L (Normal) Range: 0-32 AST (SGOT) 17 [iU]/L (Normal) Range: 0-40 Alkaline Phosphatase 74 [iU]/L (Normal) Range: 39-117 Bilirubin, Total 0.2 mg/dL (Normal) Range: 0.0-1.2 A/G Ratio 1.6 (Normal) Range: 1.2-2.2 Globulin, Total 2.1 g/dL (Normal) Range: 1.5-4.5 Albumin 3.3 g/dL (Abnormal) Range: 3.5-4.8 Protein, Total 5.4 g/dL (Abnormal) Range: 6.0-8.5 Calcium 9.1 mg/dL (Normal) Range: 8.7-10.3 Carbon Dioxide, Total 25 mmol/L (Normal) Range: 20-29 Chloride 104 mmol/L (Normal) Range: 96-106 Potassium 4.5 mmol/L (Normal) Range: 3.5-5.2 Sodium 143 mmol/L (Normal) Range: 134-144 BUN/Creatinine Ratio 22 (Normal) Range: 12-28 eGFR If Africn Am 43 mL/min/1.73 (Abnormal) eGFR If NonAfricn Am 37 mL/min/1.73 (Abnormal) Creatinine 1.35 mg/dL (Abnormal) Range: 0.57-1.00 BUN 30 mg/dL (Abnormal) Range: 8-27 Glucose 142 mg/dL (Abnormal) Range: 65-99 76-Tzc-62901:40 MICROALBUMIN: CREATININE RATIO Comments: PATIENT WAS FASTINGPERFORMED BY: [facility]OAt[facility] [id number] (05066) AND (59748) Alb/Creat Ratio 4213.3 {mg/g_creat} (Abnormal) Range: 0.0-30.0 Albumin, Urine 3206.3 ug/mL (Normal) Comments: Results confirmed ondilution. Creatinine, Urine 76.1 mg/dL (Normal) 21-Oiz-65874:40 CBC & PLATELETS (AUTO) (45573) Comments: please fax to Dr. Austin- [phone]; PATIENT WAS FASTINGPERFORMED BY: [employer] [facility] HospitalSqwiggleAtrium Health [facility] [id number] Platelets 148 {x10E3/uL} (Abnormal) Range: 150-379 RDW 14.8 % (Normal) Range: 12.3-15.4 MCHC 33.6 g/dL (Normal) Range: 31.5-35.7 MCH 29.7 pg (Normal) Range: 26.6-33.0 MCV 89 fL (Normal) Range: 79-97 Hematocrit 36.9 % (Normal) Range: 34.0-46.6 Hemoglobin 12.4 g/dL (Normal) Range: 11.1-15.9 RBC 4.17 {x10E6/uL} (Normal) Range: 3.77-5.28 WBC 4.7 {x10E3/uL} (Normal) Range: 3.4-10.8 32-Tux-06104:40 RENAL FUNCTION PANEL Comments: please fax to Dr. Austin- [phone]; PATIENT WAS FASTINGPERFORMED BY: [facility]iOAt[facility] Health [facility] Center [id number] Information: [id number] FX DR. SANTANA (73299) Albumin 3.1 g/dL (Abnormal) Range: 3.5-4.8 Phosphorus 3.8 mg/dL (Normal) Range: 2.5-4.5 Calcium 9.0 mg/dL (Normal) Range: 8.7-10.3 Carbon Dioxide, Total 27 mmol/L (Normal) Range: 20-29 Chloride 106 mmol/L (Normal) Range: 96-106 Potassium 4.4 mmol/L (Normal) Range: 3.5-5.2 Sodium 143 mmol/L (Normal) Range: 134-144 BUN/Creatinine Ratio 18 (Normal) Range: 12-28 eGFR If Africn Am 43 mL/min/1.73 (Abnormal) eGFR If NonAfricn Am 37 mL/min/1.73 (Abnormal) Creatinine 1.35 mg/dL (Abnormal) Range: 0.57-1.00 BUN 24 mg/dL (Normal) Range: 8-27 Glucose 133 mg/dL (Abnormal) Range: 65-99 :40 MAGNESIUM (17338) Comments: please fax to Dr. Austin- [phone]; PATIENT WAS FASTINGPERFORMED BY: [facility]OAt[facility] [id number] Magnesium 1.9 mg/dL (Normal) Range: 1.6-2.3 :40 CALCIFEDIOL (97961) Comments: please fax to Dr. Austin- [phone]; PATIENT WAS FASTINGPERFORMED BY: LabCoSaint Michael's Medical CenterAlevld0592 [facility] [id number] Vitamin D, 25-Hydroxy 29.4 ng/mL (Abnormal) Range: 30.0-100.0 Comments: Vitamin D deficiency has been defined by the [place] of[place]icine and an Endocrine Society practice guideline as alevel of serum 25-OH vitamin D less than 20 ng/mL (1,2).The Endocrine Society went on to further define vitamin Dinsufficiency as a level between 21 and 29 ng/mL (2).1. IOM ([place] of Medicine). 2010. Dietary reference intakes for calcium and D. [place]: The National Academies Press.2. Mira MF, Rosette NC, Tommy SWAIN, et al. Evaluation, treatment, and prevention of vitamin D deficiency: an Endocrine Society clinical practice guideline. JCEM. 2010; 96(7):1911-30. :40 PARATHORMONE (40842) Comments: please fax to Dr. Austin- [phone]; PATIENT WAS FASTINGPERFORMED BY: LabCoSaint Michael's Medical CenterUsrrzx1225 [facility] [id number] PTH, Intact 22 pg/mL (Normal) Range: 15-65 :30 COLON BIOPSY (CHOOSE See Note (Normal) Comments: [facility] [address] [place], [address] SITE) Comments: Patient: CLARENCE ALBERT : 1940 (77/F) Acct Num: [id number] Phys: Marcus Caldera Unit Num: [id number] Loc: LABSPEC Specimen: [id number] Received: 09/16/17 1529 Spec Type: C OLON BX TISSUES TISSUES: A. Sigmoid colon biopsy B. Transverse colon GROSS DESCRIPTION A - Received in fixative is one container labeled with the patient's n austyn and designated proximal sigmoid polyp. The specimen consists of multiple irregular fragments of light santana soft tissue mixed with fecal material that in aggregate measure 1 x 0.5 x 0.1 cm. The sp ecimen is totally submitted in one cassette. B - Received in fixative is one container labeled with the patient's name and designated transverse colon. The specimen consists of two irregular fragme ntsof light santana soft tissue that in aggregate measure 0.4 x 0.2 x 0.1 cm. The specimen is totally submitted in one cassette. / MARCY:dustin 09/19/17 TC:1 CPT: 64442 x2 HEADER OPERATION: Colonoscopy PRE-OP DIAGNOSIS: History of polyps TISSUE SUBMITTED: A Proximal sigmoid polyp, rule out adenoma, B Transversecolon, rule out adenoma MICROSCOPIC DESCRIPTION Slides are reviewed. M ICROSCOPIC DIAGNOSIS A. Proximal sigmoid polyp, biopsy: Fragments of tubular adenoma. B. Transverse colon polyp, biopsy: Fragments of tubular adenoma. SJ:dustin 09/20/17 Signed _ Nacho Ardon 09/20/17 <signature on file> 53-Shh-95217:24 METABOLIC PANEL, COMPREHENSIVE Comments: PATIENT NOT FASTINGPERFORMED BY: LabCoSaint Michael's Medical CenterJtbgyz4939 [facility] [id number] (90112) ALT (SGPT) 14 [iU]/L (Normal) Range: 0-32 AST (SGOT) 21 [iU]/L (Normal) Range: 0-40 Alkaline Phosphatase 67 [iU]/L (Normal) Range: 39-117 Bilirubin, Total 0.2 mg/dL (Normal) Range: 0.0-1.2 A/G Ratio 1.6 (Normal) Range: 1.2-2.2 Globulin, Total 2.1 g/dL (Normal) Range: 1.5-4.5 Albumin 3.3 g/dL (Abnormal) Range: 3.5-4.8 Protein, Total 5.4 g/dL (Abnormal) Range: 6.0-8.5 Calcium 9.1 mg/dL (Normal) Range: 8.7-10.3 Carbon Dioxide, Total 24 mmol/L (Normal) Range: 20-29 Comments: Please note reference interval change Chloride 106 mmol/L (Normal) Range: 96-106 Potassium 4.5 mmol/L (Normal) Range: 3.5-5.2 Sodium 144 mmol/L (Normal) Range: 134-144 BUN/Creatinine Ratio 24 (Normal) Range: 12-28 eGFR If Africn Am 42 mL/min/1.73 (Abnormal) eGFR If NonAfricn Am 36 mL/min/1.73 (Abnormal) Creatinine 1.39 mg/dL (Abnormal) Range: 0.57-1.00 BUN 33 mg/dL (Abnormal) Range: 8-27 Glucose 138 mg/dL (Abnormal) Range: 65-99 :07 HgA1C , Office (92669) HgA1C , Office 7.2 % (Abnormal) Range: 4.6 - 7.1 :37 Clostridium difficile Toxin Comments: PATIENT NOT FASTINGPERFORMED BY: [facility] [id number] A+B, EIA (55064) C difficile Toxins A+B, EIA Negative (Normal) :37 LEUKOCYTE COUNT, FECAL (42063) Comments: PATIENT NOT FASTINGPERFORMED BY: Pembe Panjur6370 [facility]Connect[facility] [id number] Result 1 NWBC (Normal) Comments: No white blood cells seen. White Blood Cells (WBC), Final report (Normal) Stool :37 OVA & PARASITE DIR SMEAR Comments: PATIENT NOT FASTINGPERFORMED BY: [facility] [place] [employer] GamingOn license of [facility] [id number] (18271) Result 1 NOCP (Normal) Comments: No ova, cysts, or parasites seen. Ova + Parasite Exam Final report (Normal) Comments: These results were obtained using wet preparation(s) and trichromestained smear. This test does not include testing for Cryptosporidiumparvum, Cyclospora, or Microsporidia. :37 SETH CULTURE-STOOL (79151) Comments: PATIENT NOT FASTINGPERFORMED BY: [facility] [id number] Information: SRC:ST SRC:ST E coli Shiga Toxin EIA Negative (Normal) Result 1 NCI (Normal) Comments: No Campylobacter species isolated. Campylobacter Culture Final report (Normal) Result 1 NSS (Normal) Comments: No Salmonella or Shigella recovered. Salmonella/Shigella Screen Final report (Normal) 53-Gyg-62279:06 Renal function Panel Comments: fax copy to Dr. Santana [phone]; A courtesy copy of this report has been sent [phone].PATIENT NOT FASTINGPERFORMED BY: [facility] [id number] Information: NURSE DRAW (02522) Albumin 3.5 g/dL (Normal) Range: 3.5-4.8 Phosphorus 4.2 mg/dL (Normal) Range: 2.5-4.5 Calcium 9.6 mg/dL (Normal) Range: 8.7-10.3 Carbon Dioxide, Total 26 mmol/L (Normal) Range: 18-29 Chloride 103 mmol/L (Normal) Range: 96-106 Potassium 4.5 mmol/L (Normal) Range: 3.5-5.2 Sodium 145 mmol/L Range: 134-144 (Abnormal) BUN/Creatinine Ratio 18 (Normal) Range: 12-28 eGFR If Africn Am 42 mL/min/1.73 (Abnormal) eGFR If NonAfricn Am 37 mL/min/1.73 (Abnormal) Creatinine 1.37 mg/dL Range: 0.57-1.00 (Abnormal) BUN 24 mg/dL (Normal) Range: 8-27 Glucose 131 mg/dL Range: 65-99 (Abnormal) PTH, Intact 17 pg/mL (Normal) Comments: A courtesy copy of this report has been sent [phone].PATIENT NOT FASTINGPERFORMED BY: [facility] [place]70 [facility]ConnectAt[facility] [id number] :02 Range: 15-65 Vitamin D, 25-Hydroxy 34.7 ng/mL (Normal) Comments: A courtesy copy of this report has been sent [phone].PATIENT NOT FASTINGPERFORMED BY: Lenddo Muelfr7044 [facility]ConnectAt[facility] [id number] :02 Range: 30.0-100.0 Comments: Vitamin D deficiency has been defined by the [place] of[place]icine and an Endocrine Society practice guideline as alevel of serum 25-OH vitamin D less than 20 ng/mL (1,2).The Endocrine Society went on to further define vitamin Dinsufficiency as a level between 21 and 29 ng/mL (2).1. IOM ([place] of Medicine). 2010. Dietary reference intakes for calcium and D. [place]: The National Academies Press.2. Mira MF, Rosette LOPEZ, Tommy SWAIN, et al. Evaluation, treatment, and prevention of vitamin D deficiency: an Endocrine Society clinical practice guideline. JCEM. 2010; 96(7):1911-30. 6-Mps-007447:02 MICROALBUMIN: CREATININE RATIO Comments: send results to Dr. Santana fax: [phone]; A courtesy copy of this report has been sent [phone].PATIENT NOT FASTINGPERFORMED BY: [employer] [id number] (75411) AND (93076) Alb/Creat Ratio 4191.2 {mg/g_creat} (Abnormal) Range: 0.0-30.0 Albumin, Urine 2380.6 ug/mL (Normal) Comments: Results confirmed ondilution. Creatinine, Urine 56.8 mg/dL (Normal) 3-Wip-638806:02 CBC, PLATELETS & MANUAL Comments: send results to Dr. Santana fax: [phone]; A courtesy copy of this report has been sent [phone].PATIENT NOT FASTINGPERFORMED BY: [employer] [place] [id number] Information: VIT D25, PTH DIFF (71447) Immature Grans (Abs) 0.0 {x10E3/uL} (Normal) Range: 0.0-0.1 Immature Granulocytes 0 % (Normal) Baso (Absolute) 0.1 {x10E3/uL} (Normal) Range: 0.0-0.2 Eos (Absolute) 0.1 {x10E3/uL} (Normal) Range: 0.0-0.4 Monocytes(Absolute) 0.4 {x10E3/uL} (Normal) Range: 0.1-0.9 Lymphs (Absolute) 0.9 {x10E3/uL} (Normal) Range: 0.7-3.1 Neutrophils (Absolute) 3.9 {x10E3/uL} (Normal) Range: 1.4-7.0 Basos 1 % (Normal) Eos 2 % (Normal) Monocytes 8 % (Normal) Lymphs 17 % (Normal) Neutrophils 72 % (Normal) Platelets 154 {x10E3/uL} (Normal) Range: 150-379 RDW 13.4 % (Normal) Range: 12.3-15.4 MCHC 32.7 g/dL (Normal) Range: 31.5-35.7 MCH 29.4 pg (Normal) Range: 26.6-33.0 MCV 90 fL (Normal) Range: 79-97 Hematocrit 39.1 % (Normal) Range: 34.0-46.6 Hemoglobin 12.8 g/dL (Normal) Range: 11.1-15.9 RBC 4.36 {x10E6/uL} (Normal) Range: 3.77-5.28 WBC 5.4 {x10E3/uL} (Normal) Range: 3.4-10.8 2-Mro-565989:02 MAGNESIUM (14985) Comments: send results to Dr. Santana fax: [phone]; A courtesy copy of this report has been sent [phone].PATIENT NOT FASTINGPERFORMED BY: NVC LightingSaint Michael's Medical CenterZfvcxs1596 [facility] [id number] Magnesium, Serum 1.8 mg/dL (Normal) Range: 1.6-2.3 8-Fip-584181:02 RENAL FUNCTION PANEL (50445) Comments: send results to Dr. Santana fax: [phone]; A courtesy copy of this report has been sent [phone].PATIENT NOT FASTINGPERFORMED BY: LenddoSaint Michael's Medical CenterTlnxsg0976 [facility] [id number] Albumin, Serum 3.7 g/dL (Normal) Range: 3.5-4.8 Phosphorus, Serum 3.6 mg/dL (Normal) Range: 2.5-4.5 Calcium, Serum 9.7 mg/dL (Normal) Range: 8.7-10.3 Carbon Dioxide, Total 26 mmol/L (Normal) Range: 18-29 Chloride, Serum 102 mmol/L (Normal) Range: 96-106 Potassium, Serum 4.1 mmol/L (Normal) Range: 3.5-5.2 Sodium, Serum 144 mmol/L (Normal) Range: 134-144 BUN/Creatinine Ratio 19 (Normal) Range: 12-28 eGFR If Africn Am 42 mL/min/1.73 (Abnormal) eGFR If NonAfricn Am 36 mL/min/1.73 (Abnormal) Creatinine, Serum 1.38 mg/dL (Abnormal) Range: 0.57-1.00 BUN 26 mg/dL (Normal) Range: 8-27 Glucose, Serum 119 mg/dL (Abnormal) Range: 65-99 2-Aho-493318:07 LIPID PANEL (06515) Comments: PATIENT WAS FASTINGPERFORMED BY: Pembe Panjur6370 [facility]ConnectAt[facility] [id number] LDL/HDL Ratio 1.4 {ratio} (Normal) Range: 0.0-3.2 Comments: LDL/HDL Ratio Men Women 1/2 Avg.Risk 1.0 1.5 Av g.Risk 3.6 3.2 2X Avg.Risk 6.2 5.0 3X Avg.Risk 8.0 6.1 LDL Cholesterol Calc 102 mg/dL (Abnormal) Range: 0-99 VLDL Cholesterol Cesar 17 mg/dL (Normal) Range: 5-40 HDL Cholesterol 75 mg/dL (Normal) Triglycerides 84 mg/dL (Normal) Range: 0-149 Cholesterol, Total 194 mg/dL (Normal) Range: 100-199 3-Udv-086808:07 CBC W/AUTO DIFF WBC (94643) Comments: PATIENT WAS FASTINGPERFORMED BY: [employer] LabCoStraatum [employer]ware Ngeswj9717 EverConnectAt[facility] [id number] Immature Grans (Abs) 0.0 {x10E3/uL} (Normal) Range: 0.0-0.1 Immature Granulocytes 0 % (Normal) Baso (Absolute) 0.0 {x10E3/uL} (Normal) Range: 0.0-0.2 Eos (Absolute) 0.2 {x10E3/uL} (Normal) Range: 0.0-0.4 Monocytes(Absolute) 0.3 {x10E3/uL} (Normal) Range: 0.1-0.9 Lymphs (Absolute) 0.8 {x10E3/uL} (Normal) Range: 0.7-3.1 Neutrophils (Absolute) 3.4 {x10E3/uL} (Normal) Range: 1.4-7.0 Basos 1 % (Normal) Eos 4 % (Normal) Monocytes 6 % (Normal) Lymphs 17 % (Normal) Neutrophils 72 % (Normal) Platelets 153 {x10E3/uL} (Normal) Range: 150-379 RDW 14.2 % (Normal) Range: 12.3-15.4 MCHC 33.5 g/dL (Normal) Range: 31.5-35.7 MCH 29.2 pg (Normal) Range: 26.6-33.0 MCV 87 fL (Normal) Range: 79-97 Hematocrit 36.1 % (Normal) Range: 34.0-46.6 Hemoglobin 12.1 g/dL (Normal) Range: 11.1-15.9 RBC 4.15 {x10E6/uL} (Normal) Range: 3.77-5.28 WBC 4.8 {x10E3/uL} (Normal) Range: 3.4-10.8 1-Giz-341055:07 METABOLIC PANEL, COMPREHENSIVE Comments: PATIENT WAS FASTINGPERFORMED BY: LabCoSaint Michael's Medical CenterZjjutw7922 [facility] [id number] (49456) ALT (SGPT) 14 [iU]/L (Normal) Range: 0-32 AST (SGOT) 20 [iU]/L (Normal) Range: 0-40 Alkaline Phosphatase 79 [iU]/L (Normal) Range: 39-117 Bilirubin, Total 0.2 mg/dL (Normal) Range: 0.0-1.2 A/G Ratio 1.5 (Normal) Range: 1.2-2.2 Globulin, Total 2.2 g/dL (Normal) Range: 1.5-4.5 Albumin 3.4 g/dL (Abnormal) Range: 3.5-4.8 Protein, Total 5.6 g/dL (Abnormal) Range: 6.0-8.5 Calcium 9.1 mg/dL (Normal) Range: 8.7-10.3 Carbon Dioxide, Total 24 mmol/L (Normal) Range: 18-29 Comments: Effective September 12, 2017 Carbon Dioxide, Total reference interval will be changing to: Age Male Female 0 days - 30 days 16 - 16 - 31 days - 1 year 15 - 25 15 - 25 2 years - 5 years 17 - 26 17 - 26 6 y ears - 12 years 19 - 27 19 - 27 >12 years 20 - 29 20 - 29 Chloride 104 mmol/L (Normal) Range: 96-106 Potassium 4.7 mmol/L (Normal) Range: 3.5-5.2 Sodium 143 mmol/L (Normal) Range: 134-144 BUN/Creatinine Ratio 20 (Normal) Range: 12-28 eGFR If Africn Am 32 mL/min/1.73 (Abnormal) eGFR If NonAfricn Am 28 mL/min/1.73 (Abnormal) Creatinine 1.73 mg/dL (Abnormal) Range: 0.57-1.00 BUN 34 mg/dL (Abnormal) Range: 8-27 Glucose 158 mg/dL (Abnormal) Range: 65-99 5-Jiv-354241:07 VITAMIN B-12 (CYANOCOBALAMIN) Comments: PATIENT WAS FASTINGPERFORMED BY: [employer] [facility] [id number] (59681) Vitamin B12 771 pg/mL (Normal) Range: 232-1245 13-May-20170:00 CDIFF (Molecular) Comments: [facility] Uuvlyzzok[address] [place], [place], [address] CDIFF See Note (Normal) Comments: Cdiff-MolecularNormal Reference Range = Negative C. Diff DNA Negative- No toxigenic C. Diff DNA DetectedNAAT METHOD Testing was performed using nucleic acid amplification :32 Rapid Flu (84064 x 2) Influenza A Ag Negative (Normal) :35 CBC with auto diff (88768) Comments: PATIENT WAS FASTINGPERFORMED BY: [employer] LabCoSaint Michael's Medical CenterWblkbh2900 [facility] [id number] Immature Grans (Abs) 0.0 {x10E3/uL} (Normal) Range: 0.0-0.1 Immature Granulocytes 0 % (Normal) Baso (Absolute) 0.1 {x10E3/uL} (Normal) Range: 0.0-0.2 Eos (Absolute) 0.1 {x10E3/uL} (Normal) Range: 0.0-0.4 Monocytes(Absolute) 0.5 {x10E3/uL} (Normal) Range: 0.1-0.9 Lymphs (Absolute) 1.2 {x10E3/uL} (Normal) Range: 0.7-3.1 Neutrophils (Absolute) 4.7 {x10E3/uL} (Normal) Range: 1.4-7.0 Basos 1 % (Normal) Eos 2 % (Normal) Monocytes 8 % (Normal) Lymphs 17 % (Normal) Neutrophils 72 % (Normal) Platelets 142 {x10E3/uL} (Abnormal) Range: 150-379 RDW 13.6 % (Normal) Range: 12.3-15.4 MCHC 32.2 g/dL (Normal) Range: 31.5-35.7 MCH 29.7 pg (Normal) Range: 26.6-33.0 MCV 92 fL (Normal) Range: 79-97 Hematocrit 39.1 % (Normal) Range: 34.0-46.6 Hemoglobin 12.6 g/dL (Normal) Range: 11.1-15.9 RBC 4.24 {x10E6/uL} (Normal) Range: 3.77-5.28 WBC 6.6 {x10E3/uL} (Normal) Range: 3.4-10.8 63-Qlu-37068:35 METABOLIC PANEL, COMPREHENSIVE Comments: PATIENT WAS FASTINGPERFORMED BY: LabCoSaint Michael's Medical CenterGramwy1527 [facility] [id number] (10215) ALT (SGPT) 16 [iU]/L (Normal) Range: 0-32 AST (SGOT) 23 [iU]/L (Normal) Range: 0-40 Alkaline Phosphatase, S 70 [iU]/L (Normal) Range: 39-117 Bilirubin, Total 0.3 mg/dL (Normal) Range: 0.0-1.2 A/G Ratio 1.6 (Normal) Range: 1.2-2.2 Globulin, Total 2.1 (Normal) Range: 1.5-4.5 Albumin, Serum 3.4 g/dL (Abnormal) Range: 3.5-4.8 Protein, Total, Serum 5.5 g/dL (Abnormal) Range: 6.0-8.5 Calcium, Serum 9.4 mg/dL (Normal) Range: 8.7-10.3 Carbon Dioxide, Total 27 mmol/L (Normal) Range: 18-29 Chloride, Serum 103 mmol/L (Normal) Range: 96-106 Potassium, Serum 5.0 mmol/L (Normal) Range: 3.5-5.2 Sodium, Serum 146 mmol/L (Abnormal) Range: 134-144 BUN/Creatinine Ratio 15 (Normal) Range: 12-28 eGFR If Africn Am 38 (Abnormal) eGFR If NonAfricn Am 33 (Abnormal) Creatinine, Serum 1.51 mg/dL (Abnormal) Range: 0.57-1.00 BUN 23 mg/dL (Normal) Range: 8-27 Glucose, Serum 145 mg/dL (Abnormal) Range: 65-99 52-Tsl-180245:51 HgA1C , Office (27946) HgA1C , Office 6.7 % (Normal) Range: 4.6 - 7.1 :50 CALCIFEDIOL (67293) Comments: A courtesy copy of this report has been sent [phone].PATIENT WAS FASTINGPERFORMED BY: LabHenry [facility] Hospital6370 [facility] [id number] Vitamin D, 25-Hydroxy 40.7 ng/mL (Normal) Range: 30.0-100.0 Comments: Vitamin D deficiency has been defined by the [place] ofBerger Hospitalcine and an Endocrine Society practice guideline as alevel of serum 25-OH vitamin D less than 20 ng/mL (1,2).The Endocrine Society went on to further define vitamin Dinsufficiency as a level between 21 and 29 ng/mL (2).1. IOM ([place] of Medicine). 2010. Dietary reference intakes for calcium and D. [place]: The National Academies Press.2. Mira MF, Rosette LOPEZ, Tommy SWAIN, et al. Evaluation, treatment, and prevention of vitamin D deficiency: an Endocrine Society clinical practice guideline. JCEM. 2010; 96(7):1911-30. 5-Mnu-902841:50 PTH (PARATHORMONE) (85461) Comments: A courtesy copy of this report has been sent [phone].PATIENT WAS FASTINGPERFORMED BY: Lenddo Plxpmz7086 [facility] [id number] PTH, Intact 20 pg/mL (Normal) Range: 15-65 7-Dia-966841:50 MICROALBUMIN: CREATININE RATIO Comments: A courtesy copy of this report has been sent [phone].PATIENT WAS FASTINGPERFORMED BY: Lenddo Loqzii2147 [facility] [id number] (49264) AND (58242) Microalb/Creat Ratio 4376.0 {mg/g_creat} (Abnormal) Range: 0.0-30.0 Microalbumin, Urine 3369.5 ug/mL (Normal) Comments: Results confirmed ondilution. Creatinine, Urine 77.0 mg/dL (Normal) 6-Thc-218089:50 Renal function Panel Comments: A courtesy copy of this report has been sent [phone].PATIENT WAS FASTINGPERFORMED BY: Lenddo Ghbmnh3628 [facility] [id number] Information: FX DR. SANTANA [phone] (89327) Albumin, Serum 3.8 g/dL (Normal) Range: 3.5-4.8 Phosphorus, Serum 4.1 mg/dL (Normal) Range: 2.5-4.5 Calcium, Serum 9.9 mg/dL (Normal) Range: 8.7-10.3 Carbon Dioxide, Total 22 mmol/L (Normal) Range: 18-29 Chloride, Serum 101 mmol/L (Normal) Range: 96-106 Potassium, Serum 4.2 mmol/L (Normal) Range: 3.5-5.2 Sodium, Serum 143 mmol/L (Normal) Range: 134-144 BUN/Creatinine Ratio 24 (Normal) Range: 12-28 eGFR If Africn Am 37 mL/min/1.73 (Abnormal) eGFR If NonAfricn Am 32 mL/min/1.73 (Abnormal) Creatinine, Serum 1.53 mg/dL (Abnormal) Range: 0.57-1.00 BUN 36 mg/dL (Abnormal) Range: 8-27 Glucose, Serum 203 mg/dL (Abnormal) Range: 65-99 :50 Magnesium (65659) Comments: A courtesy copy of this report has been sent [phone].PATIENT WAS FASTINGPERFORMED BY: LabCoSaint Michael's Medical CenterTobbnv8475 [facility] [id number] Magnesium, Serum 1.8 mg/dL (Normal) Range: 1.6-2.3 :53 CBC with auto diff (27920) Comments: A courtesy copy of this report has been sent [phone].PATIENT WAS FASTINGPERFORMED BY: LabCoSaint Michael's Medical CenterBfnphk3716 [facility] [id number] Immature Grans (Abs) 0.0 {x10E3/uL} (Normal) Range: 0.0-0.1 Immature Granulocytes 0 % (Normal) Baso (Absolute) 0.0 {x10E3/uL} (Normal) Range: 0.0-0.2 Eos (Absolute) 0.0 {x10E3/uL} (Normal) Range: 0.0-0.4 Monocytes(Absolute) 0.2 {x10E3/uL} (Normal) Range: 0.1-0.9 Lymphs (Absolute) 0.4 {x10E3/uL} (Abnormal) Range: 0.7-3.1 Neutrophils (Absolute) 5.0 {x10E3/uL} (Normal) Range: 1.4-7.0 Basos 0 % (Normal) Eos 0 % (Normal) Monocytes 3 % (Normal) Lymphs 8 % (Normal) Neutrophils 89 % (Normal) Platelets 164 {x10E3/uL} (Normal) Range: 150-379 RDW 13.5 % (Normal) Range: 12.3-15.4 MCHC 32.8 g/dL (Normal) Range: 31.5-35.7 MCH 30.0 pg (Normal) Range: 26.6-33.0 MCV 92 fL (Normal) Range: 79-97 Hematocrit 39.6 % (Normal) Range: 34.0-46.6 Hemoglobin 13.0 g/dL (Normal) Range: 11.1-15.9 RBC 4.33 {x10E6/uL} (Normal) Range: 3.77-5.28 WBC 5.6 {x10E3/uL} (Normal) Range: 3.4-10.8 :53 LIPID PANEL (22926) Comments: A courtesy copy of this report has been sent [phone].PATIENT WAS FASTINGPERFORMED BY: [facility]6370 [facility] [id number] LDL/HDL Ratio 1.2 {ratio_units} (Normal) Range: 0.0-3.2 Comments: LDL/HDL Ratio Men Women 1/2 Avg.Risk 1.0 1.5 Av g.Risk 3.6 3.2 2X Avg.Risk 6.2 5.0 3X Avg.Risk 8.0 6.1 LDL Cholesterol Calc 90 mg/dL (Normal) Range: 0-99 VLDL Cholesterol Cesar 13 mg/dL (Normal) Range: 5-40 HDL Cholesterol 76 mg/dL (Normal) Triglycerides 67 mg/dL (Normal) Range: 0-149 Cholesterol, Total 179 mg/dL (Normal) Range: 100-199 :53 METABOLIC PANEL, COMPREHENSIVE Comments: A courtesy copy of this report has been sent [phone].PATIENT WAS FASTINGPERFORMED BY: [facility]6370 [facility] [id number] (60968) ALT (SGPT) 11 [iU]/L (Normal) Range: 0-32 AST (SGOT) 20 [iU]/L (Normal) Range: 0-40 Alkaline Phosphatase, S 62 [iU]/L (Normal) Range: 39-117 Bilirubin, Total 0.2 mg/dL (Normal) Range: 0.0-1.2 A/G Ratio 2.0 (Normal) Range: 1.2-2.2 Globulin, Total 2.0 g/dL (Normal) Range: 1.5-4.5 Albumin, Serum 4.0 g/dL (Normal) Range: 3.5-4.8 Protein, Total, Serum 6.0 g/dL (Normal) Range: 6.0-8.5 Calcium, Serum 10.0 mg/dL (Normal) Range: 8.7-10.3 Carbon Dioxide, Total 24 mmol/L (Normal) Range: 18-29 Chloride, Serum 100 mmol/L (Normal) Range: 96-106 Potassium, Serum 4.2 mmol/L (Normal) Range: 3.5-5.2 Sodium, Serum 143 mmol/L (Normal) Range: 134-144 BUN/Creatinine Ratio 24 (Normal) Range: 12-28 eGFR If Africn Am 36 mL/min/1.73 (Abnormal) eGFR If NonAfricn Am 32 mL/min/1.73 (Abnormal) Creatinine, Serum 1.56 mg/dL (Abnormal) Range: 0.57-1.00 BUN 38 mg/dL (Abnormal) Range: 8-27 Glucose, Serum 205 mg/dL (Abnormal) Range: 65-99 :57 HgA1C , Office (63588) HgA1C , Office 7.1 % (Normal) Range: 4.6 - 7.1 :09 LIPID PANEL (74751) Comments: PATIENT WAS FASTINGPERFORMED BY: [facility] [place]70 [facility]ightBre[facility]in[facility] [id number] LDL/HDL Ratio 1.3 {ratio_units} (Normal) Range: 0.0-3.2 Comments: LDL/HDL Ratio Men Women 1/2 Avg.Risk 1.0 1.5 Av g.Risk 3.6 3.2 2X Avg.Risk 6.2 5.0 3X Avg.Risk 8.0 6.1 LDL Cholesterol Calc 94 mg/dL (Normal) Range: 0-99 VLDL Cholesterol Cesar 31 mg/dL (Normal) Range: 5-40 HDL Cholesterol 71 mg/dL (Normal) Triglycerides 157 mg/dL (Abnormal) Range: 0-149 Cholesterol, Total 196 mg/dL (Normal) Range: 100-199 :09 METABOLIC PANEL, COMPREHENSIVE Comments: PATIENT WAS FASTINGPERFORMED BY: 99taojin.comBreckinridge Memorial Hospital [id number] (30312) ALT (SGPT) 12 [iU]/L (Normal) Range: 0-32 AST (SGOT) 19 [iU]/L (Normal) Range: 0-40 Alkaline Phosphatase, S 67 [iU]/L (Normal) Range: 39-117 Bilirubin, Total 0.3 mg/dL (Normal) Range: 0.0-1.2 A/G Ratio 1.7 (Normal) Range: 1.2-2.2 Globulin, Total 2.0 g/dL (Normal) Range: 1.5-4.5 Albumin, Serum 3.4 g/dL (Abnormal) Range: 3.5-4.8 Protein, Total, Serum 5.4 g/dL (Abnormal) Range: 6.0-8.5 Calcium, Serum 9.7 mg/dL (Normal) Range: 8.7-10.3 Carbon Dioxide, Total 28 mmol/L (Normal) Range: 18-29 Chloride, Serum 103 mmol/L (Normal) Range: 96-106 Potassium, Serum 4.1 mmol/L (Normal) Range: 3.5-5.2 Sodium, Serum 146 mmol/L (Abnormal) Range: 134-144 BUN/Creatinine Ratio 17 (Normal) Range: 12-28 eGFR If Africn Am 45 mL/min/1.73 (Abnormal) eGFR If NonAfricn Am 39 mL/min/1.73 (Abnormal) Creatinine, Serum 1.31 mg/dL (Abnormal) Range: 0.57-1.00 BUN 22 mg/dL (Normal) Range: 8-27 Glucose, Serum 152 mg/dL (Abnormal) Range: 65-99 :50 HgA1C , Office (91287) HgA1C , Office 6.7 % (Normal) Range: 4.6 - 7.1 :25 Magnesium, Serum 1.9 mg/dL (Normal) Comments: PATIENT WAS FASTINGPERFORMED BY: LenddoCarlsbad Medical CenterVmffdw6946 [facility] [id number] Range: 1.6-2.3 :25 Microalb/Creat Ratio, Randm Ur Comments: PATIENT WAS FASTINGPERFORMED BY: Lenddo Hghfnk1182 [facility] [id number] Microalb/Creat Ratio 2652.0 {mg/g_creat} Range: 0.0-30.0 (Abnormal) Microalbumin, Urine 2482.3 ug/mL (Normal) Comments: Results confirmed ondilution. Creatinine, Urine 93.6 mg/dL (Normal) PTH, Intact 26 pg/mL (Normal) Comments: PATIENT WAS FASTINGPERFORMED BY: [facility] Whevnl25[address]Dublin [place] [id number] :25 Range: 15-65 :25 Renal Panel (10) Comments: PATIENT WAS FASTINGPERFORMED BY: CB [facility] Nzqiyy8[address] [place] [id number] Phosphorus, Serum 4.3 mg/dL (Normal) Range: 2.5-4.5 :25 Thyroxine (T4) Free, Direct, S Comments: PATIENT WAS FASTINGPERFORMED BY: [facility] Wdjtrn7158 [address]Dublin [place] [id number] T4,Free(Direct) 1.08 ng/dL (Normal) Range: 0.82-1.77 : TSH 2.980 {uIU/mL} Comments: PATIENT WAS FASTINGPERFORMED BY: CB [facility] [id number]Dublin [place] [id number] 25 (Normal) Range: 0.450-4.500 : Vitamin D, 25-Hydroxy 37.1 ng/mL (Normal) Comments: PATIENT WAS FASTINGPERFORMED BY: CB [facility] [id number] [place] [id number] 25 Range: 30.0-100.0 Comments: Vitamin D deficiency has been defined by the [place] [facility] and an Endocrine Society practice guideline as alevel of serum 25-OH vitamin D less than 20 ng/mL (1,2).The Endocrine Society went on to further define vitamin Dinsufficiency as a level between 21 and 29 ng/mL (2).1. IOM ([place] [employer]). 2010. Dietary reference intakes for calcium and D. [place]: The National Academies Press.2. Mira MF, Rosette NC, Tommy SWAIN, et al. Evaluation, treatment, and prevention of vitamin D deficiency: an Endocrine Society clinical practice guideline. JCEM. 2010; 96(7):1911-30. :25 CBC W/AUTO DIFF WBC (00015) Comments: PATIENT WAS FASTINGPERFORMED BY: EVE [facility] [id number] [facility] [id number] Immature Grans (Abs) 0.0 {x10E3/uL} (Normal) Range: 0.0-0.1 Immature Granulocytes 0 % (Normal) Baso (Absolute) 0.1 {x10E3/uL} (Normal) Range: 0.0-0.2 Eos (Absolute) 0.1 {x10E3/uL} (Normal) Range: 0.0-0.4 Monocytes(Absolute) 0.4 {x10E3/uL} (Normal) Range: 0.1-0.9 Lymphs (Absolute) 0.8 {x10E3/uL} (Normal) Range: 0.7-3.1 Neutrophils (Absolute) 2.8 {x10E3/uL} (Normal) Range: 1.4-7.0 Basos 2 % (Normal) Eos 3 % (Normal) Monocytes 8 % (Normal) Lymphs 19 % (Normal) Neutrophils 68 % (Normal) Platelets 180 {x10E3/uL} (Normal) Range: 150-379 RDW 14.3 % (Normal) Range: 12.3-15.4 MCHC 32.4 g/dL (Normal) Range: 31.5-35.7 MCH 28.1 pg (Normal) Range: 26.6-33.0 MCV 87 fL (Normal) Range: 79-97 Hematocrit 38.0 % (Normal) Range: 34.0-46.6 Hemoglobin 12.3 g/dL (Normal) Range: 11.1-15.9 RBC 4.37 {x10E6/uL} (Normal) Range: 3.77-5.28 WBC 4.2 {x10E3/uL} (Normal) Range: 3.4-10.8 03-Aug-20169:25 METABOLIC PANEL, COMPREHENSIVE Comments: PATIENT WAS FASTINGPERFORMED BY: [facility] CenterPokhpw3414 [facility] [id number]; non- emergent till apt ([id number]) ALT (SGPT) 10 [iU]/L (Normal) Range: 0-32 AST (SGOT) 19 [iU]/L (Normal) Range: 0-40 Alkaline Phosphatase, S 68 [iU]/L (Normal) Range: 39-117 Bilirubin, Total 0.4 mg/dL (Normal) Range: 0.0-1.2 A/G Ratio 1.6 (Normal) Range: 1.2-2.2 Globulin, Total 2.2 g/dL (Normal) Range: 1.5-4.5 Albumin, Serum 3.5 g/dL (Normal) Range: 3.5-4.8 Protein, Total, Serum 5.7 g/dL (Abnormal) Range: 6.0-8.5 Calcium, Serum 9.1 mg/dL (Normal) Range: 8.7-10.3 Carbon Dioxide, Total 24 mmol/L (Normal) Range: 18-29 Chloride, Serum 106 mmol/L (Normal) Range: 96-106 Potassium, Serum 4.5 mmol/L (Normal) Range: 3.5-5.2 Sodium, Serum 146 mmol/L (Abnormal) Range: 134-144 BUN/Creatinine Ratio 15 (Normal) Range: 12-28 eGFR If Africn Am 38 mL/min/1.73 (Abnormal) eGFR If NonAfricn Am 33 mL/min/1.73 (Abnormal) Creatinine, Serum 1.52 mg/dL (Abnormal) Range: 0.57-1.00 BUN 23 mg/dL (Normal) Range: 8-27 Glucose, Serum 122 mg/dL (Abnormal) Range: 65-99 03-Aug-20169:25 LIPID PANEL (87368) Comments: PATIENT WAS FASTINGPERFORMED BY: LabCoSaint [facility]'s Medical CenterXrwqoz6594 [facility] [id number] LDL/HDL Ratio 0.9 {ratio_units} (Normal) Range: 0.0-3.2 Comments: LDL/HDL Ratio Men Women 1/2 Avg.Risk 1.0 1.5 Av g.Risk 3.6 3.2 2X Avg.Risk 6.2 5.0 3X Avg.Risk 8.0 6.1 LDL Cholesterol Calc 65 mg/dL (Normal) Range: 0-99 VLDL Cholesterol Cesar 19 mg/dL (Normal) Range: 5-40 HDL Cholesterol 75 mg/dL (Normal) Triglycerides 93 mg/dL (Normal) Range: 0-149 Cholesterol, Total 159 mg/dL (Normal) Range: 100-199 29-Hhj-527110:54 HgA1C , Office (44466) HgA1C , Office 6.6 % (Normal) Range: 4.6 - 7.1 82-Quy-795895:1 Magnesium, Serum 2.1 mg/dL (Normal) Comments: PATIENT WAS FASTINGPERFORMED BY: [employer] Mygaqx0874 [facility] [place] [id number] 2 Range: 1.6-2.3 96-Onk-281472:12 Microalb/Creat Ratio, Randm Ur Comments: PATIENT WAS FASTINGPERFORMED BY: [employer] Jxpnfi3781 [facility] [id number] Microalb/Creat Ratio 1863.4 {mg/g_creat} (Abnormal) Range: 0.0-30.0 Microalbumin, Urine 1416.2 ug/mL (Normal) Comments: Results confirmed ondilution. Creatinine, Urine 76.0 mg/dL (Normal) 87-Zsh-348630:12 Microscopic Examination Comments: PATIENT WAS FASTINGPERFORMED BY: [employer] Ifmwlr2439 [facility]in [place] [id number] Bacteria None seen (Normal) Mucus Threads Present (Normal) Cast Type Hyaline casts (Normal) Casts Present {/lpf} (Abnormal) Epithelial Cells (non 0-10 {/hpf} Range: 0 - 10 renal) (Normal) RBC 3-10 {/hpf} Range: 0 - 2 (Abnormal) WBC 6-10 {/hpf} Range: 0 - 5 (Abnormal) PTH, Intact 36 pg/mL (Normal) Comments: PATIENT WAS FASTINGPERFORMED BY: [employer] Vaqxjr0423 [facility] [place] [id number] 0:12 Range: 15-65 Vitamin D, 25-Hydroxy 42.9 ng/mL (Normal) Comments: PATIENT WAS FASTINGPERFORMED BY: [employer] Xlioos5758 [facility] [place] [id number] 0:12 Range: 30.0-100.0 Comments: Vitamin D deficiency has been defined by the [place] of[place]icine and an Endocrine Society practice guideline as alevel of serum 25-OH vitamin D less than 20 ng/mL (1,2).The Endocrine Society went on to further define vitamin Dinsufficiency as a level between 21 and 29 ng/mL (2).1. IOM ([place] of Medicine). 2010. Dietary reference intakes for calcium and D. [place]: The National Academies Press.2. Mira MF, Rosette LOPEZ, Tommy SWAIN, et al. Evaluation, treatment, and prevention of vitamin D deficiency: an Endocrine Society clinical practice guideline. JCEM. 2010; 96(7):1911-30. 63-Uik-302423:12 URINALYSIS, W/ MICRO (23901) Comments: PATIENT WAS FASTINGPERFORMED BY: [employer] LabCoAtriCureQujyrz3437 [facility] [id number] Microscopic Examination See below: (Normal) Comments: Microscopic was indicated and was performed. Nitrite, Urine Negative (Normal) Urobilinogen,Semi-Qn 0.2 mg/dL (Normal) Range: 0.2-1.0 Bilirubin Negative (Normal) Occult Blood Negative (Normal) Ketones Negative (Normal) Glucose Negative (Normal) Protein 4+ (Abnormal) WBC Esterase Trace (Abnormal) Appearance Clear (Normal) Urine-Color Yellow (Normal) pH 6.0 (Normal) Range: 5.0-7.5 Specific [place] 1.015 (Normal) Range: 1.005-1.030 42-Twr-999142:12 CBC W/AUTO DIFF WBC (28561) Comments: PATIENT WAS FASTINGPERFORMED BY: LabCoAviaryWgmgqi0865 [facility] [id number] Immature Grans (Abs) 0.0 {x10E3/uL} (Normal) Range: 0.0-0.1 Immature Granulocytes 0 % (Normal) Baso (Absolute) 0.1 {x10E3/uL} (Normal) Range: 0.0-0.2 Eos (Absolute) 0.1 {x10E3/uL} (Normal) Range: 0.0-0.4 Monocytes(Absolute) 0.5 {x10E3/uL} (Normal) Range: 0.1-0.9 Lymphs (Absolute) 1.0 {x10E3/uL} (Normal) Range: 0.7-3.1 Neutrophils (Absolute) 4.5 {x10E3/uL} (Normal) Range: 1.4-7.0 Basos 1 % (Normal) Eos 2 % (Normal) Monocytes 8 % (Normal) Lymphs 16 % (Normal) Neutrophils 73 % (Normal) Platelets 163 {x10E3/uL} (Normal) Range: 150-379 RDW 13.7 % (Normal) Range: 12.3-15.4 MCHC 32.7 g/dL (Normal) Range: 31.5-35.7 MCH 29.4 pg (Normal) Range: 26.6-33.0 MCV 90 fL (Normal) Range: 79-97 Hematocrit 39.2 % (Normal) Range: 34.0-46.6 Hemoglobin 12.8 g/dL (Normal) Range: 11.1-15.9 RBC 4.35 {x10E6/uL} (Normal) Range: 3.77-5.28 WBC 6.2 {x10E3/uL} (Normal) Range: 3.4-10.8 00-Yol-281093:12 METABOLIC PANEL, COMPREHENSIVE Comments: PATIENT WAS FASTINGPERFORMED BY: LabCoSaint Michael's Medical CenterZimhat7589 [facility] [id number] ([id number]) ALT (SGPT) 14 [iU]/L (Normal) Range: 0-32 AST (SGOT) 20 [iU]/L (Normal) Range: 0-40 Alkaline Phosphatase, S 69 [iU]/L (Normal) Range: 39-117 Bilirubin, Total 0.3 mg/dL (Normal) Range: 0.0-1.2 A/G Ratio 1.7 (Normal) Range: 1.1-2.5 Globulin, Total 2.2 g/dL (Normal) Range: 1.5-4.5 Albumin, Serum 3.7 g/dL (Normal) Range: 3.5-4.8 Protein, Total, Serum 5.9 g/dL (Abnormal) Range: 6.0-8.5 Calcium, Serum 8.9 mg/dL (Normal) Range: 8.7-10.3 Carbon Dioxide, Total 23 mmol/L (Normal) Range: 18-29 Chloride, Serum 106 mmol/L (Normal) Range: 96-106 Potassium, Serum 4.6 mmol/L (Normal) Range: 3.5-5.2 Sodium, Serum 144 mmol/L (Normal) Range: 134-144 BUN/Creatinine Ratio 14 (Normal) Range: 11-26 eGFR If Africn Am 37 mL/min/1.73 (Abnormal) eGFR If NonAfricn Am 32 mL/min/1.73 (Abnormal) Creatinine, Serum 1.55 mg/dL (Abnormal) Range: 0.57-1.00 BUN 22 mg/dL (Normal) Range: 8-27 Glucose, Serum 154 mg/dL (Abnormal) Range: 65-99 29-Khz-197389:12 LIPID PANEL (07121) Comments: PATIENT WAS FASTINGPERFORMED BY: [employer]70 [facility] [id number] LDL/HDL Ratio 0.7 {ratio_units} (Normal) Range: 0.0-3.2 Comments: LDL/HDL Ratio Men Women 1/2 Avg.Risk 1.0 1.5 Av g.Risk 3.6 3.2 2X Avg.Risk 6.2 5.0 3X Avg.Risk 8.0 6.1 LDL Cholesterol Calc 49 mg/dL (Normal) Range: 0-99 VLDL Cholesterol Cesar 14 mg/dL (Normal) Range: 5-40 HDL Cholesterol 75 mg/dL (Normal) Triglycerides 68 mg/dL (Normal) Range: 0-149 Cholesterol, Total 138 mg/dL (Normal) Range: 100-199 05-Hpw-891921:50 HgA1C , Office (60238) HgA1C , Office 6.7 % (Normal) Range: 4.6 - 7.1 96-Hem-086444:36 VITAMIN B-12 (CYANOCOBALAMIN) Comments: PATIENT WAS FASTINGPERFORMED BY: [employer] Xbywmz4577 [facility] [id number] (27011) Vitamin B12 802 pg/mL (Normal) Range: 211-946 01-Dnj-538553:36 LIPID PANEL (54820) Comments: PATIENT WAS FASTINGPERFORMED BY: [employer] Juwfyg7457 [facility] [id number] LDL/HDL Ratio 0.8 {ratio_units} (Normal) Range: 0.0-3.2 Comments: LDL/HDL Ratio Men Women 1/2 Avg.Risk 1.0 1.5 Av g.Risk 3.6 3.2 2X Avg.Risk 6.2 5.0 3X Avg.Risk 8.0 6.1 LDL Cholesterol Calc 67 mg/dL (Normal) Range: 0-99 VLDL Cholesterol Cesar 12 mg/dL (Normal) Range: 5-40 HDL Cholesterol 82 mg/dL (Normal) Comments: According to ATP-III Guidelines, HDL-C >59 mg/dL is considered anegative risk factor for CHD. Triglycerides 58 mg/dL (Normal) Range: 0-149 Cholesterol, Total 161 mg/dL (Normal) Range: 100-199 31-Otl-586193:36 LDH (LD) (LACTATE DEHYDROGENASE) Comments: PATIENT WAS FASTINGPERFORMED BY: LabCoSaint Michael's Medical CenterSgpaiq9334 [facility] [id number] (98018) LDH 217 [iU]/L (Normal) Range: 119-226 00-Mxa-704636:36 CBC W/AUTO DIFF WBC (35775) Comments: PATIENT WAS FASTINGPERFORMED BY: LabCoSaint Michael's Medical CenterOhaotr2548 [facility] [id number] Immature Grans (Abs) 0.0 {x10E3/uL} (Normal) Range: 0.0-0.1 Immature Granulocytes 0 % (Normal) Baso (Absolute) 0.0 {x10E3/uL} (Normal) Range: 0.0-0.2 Eos (Absolute) 0.0 {x10E3/uL} (Normal) Range: 0.0-0.4 Monocytes(Absolute) 0.3 {x10E3/uL} (Normal) Range: 0.1-0.9 Lymphs (Absolute) 0.6 {x10E3/uL} (Abnormal) Range: 0.7-3.1 Neutrophils (Absolute) 9.7 {x10E3/uL} (Abnormal) Range: 1.4-7.0 Basos 0 % (Normal) Eos 0 % (Normal) Monocytes 3 % (Normal) Lymphs 6 % (Normal) Neutrophils 91 % (Normal) Platelets 190 {x10E3/uL} (Normal) Range: 150-379 RDW 13.1 % (Normal) Range: 12.3-15.4 MCHC 33.3 g/dL (Normal) Range: 31.5-35.7 MCH 29.3 pg (Normal) Range: 26.6-33.0 MCV 88 fL (Normal) Range: 79-97 Hematocrit 40.5 % (Normal) Range: 34.0-46.6 Hemoglobin 13.5 g/dL (Normal) Range: 11.1-15.9 RBC 4.60 {x10E6/uL} (Normal) Range: 3.77-5.28 WBC 10.6 {x10E3/uL} (Normal) Range: 3.4-10.8 02-Ygn-553140:36 METABOLIC PANEL, COMPREHENSIVE Comments: PATIENT WAS FASTINGPERFORMED BY: LabCoSaint Michael's Medical CenterTjsdcb6009 [facility] [id number] ([id number]) ALT (SGPT) 15 [iU]/L (Normal) Range: 0-32 AST (SGOT) 17 [iU]/L (Normal) Range: 0-40 Alkaline Phosphatase, S 73 [iU]/L (Normal) Range: 39-117 Bilirubin, Total 0.2 mg/dL (Normal) Range: 0.0-1.2 A/G Ratio 1.8 (Normal) Range: 1.1-2.5 Globulin, Total 2.3 g/dL (Normal) Range: 1.5-4.5 Albumin, Serum 4.1 g/dL (Normal) Range: 3.5-4.8 Protein, Total, Serum 6.4 g/dL (Normal) Range: 6.0-8.5 Calcium, Serum 9.7 mg/dL (Normal) Range: 8.7-10.3 Carbon Dioxide, Total 23 mmol/L (Normal) Range: 18-29 Chloride, Serum 102 mmol/L (Normal) Range: 97-108 Comments: Effective January 19, 2016 the reference interval for Chloride, Serum will be changing to: 97 - 106 Potassium, Serum 4.2 mmol/L (Normal) Range: 3.5-5.2 Comments: Effective January 19, 2016 the reference interval for Potassium, Serum will be changing to: 0 - 7 days 3.7 - 5.2 8 - 30 days 3.7 - 6.4 1 - 6 months 3.8 - 6.0 7 months - 1 year 3.8 - 5.3 >1 year 3.5 - 5.2 Sodium, Serum 142 mmol/L (Normal) Range: 134-144 Comments: Effective January 19, 2016 the reference interval for Sodium, Serum will be changing to: 136 - 144 BUN/Creatinine Ratio 24 (Normal) Range: 11-26 eGFR If Africn Am 53 mL/min/1.73 (Abnormal) eGFR If NonAfricn Am 46 mL/min/1.73 (Abnormal) Creatinine, Serum 1.15 mg/dL (Abnormal) Range: 0.57-1.00 BUN 28 mg/dL (Abnormal) Range: 8-27 Glucose, Serum 137 mg/dL (Abnormal) Range: 65-99 07-Ntb-139106:36 TSH (20348) Comments: PATIENT WAS FASTINGPERFORMED BY: Pembe Panjur6370 [facility] [id number] TSH 0.560 {uIU/mL} (Normal) Range: 0.450-4.500 :02 Renal function Panel (29441) Comments: PATIENT WAS FASTINGPERFORMED BY: Pembe Panjur6370 [facility] [id number] Albumin, Serum 3.7 g/dL (Normal) Range: 3.5-4.8 Phosphorus, Serum 3.7 mg/dL (Normal) Range: 2.5-4.5 Calcium, Serum 8.8 mg/dL (Normal) Range: 8.7-10.3 Carbon Dioxide, Total 26 mmol/L (Normal) Range: 18-29 Chloride, Serum 103 mmol/L (Normal) Range: 97-108 Potassium, Serum 4.6 mmol/L (Normal) Range: 3.5-5.2 Sodium, Serum 143 mmol/L (Normal) Range: 134-144 BUN/Creatinine Ratio 25 (Normal) Range: 11-26 eGFR If Africn Am 51 mL/min/1.73 (Abnormal) eGFR If NonAfricn Am 45 mL/min/1.73 (Abnormal) Creatinine, Serum 1.18 mg/dL (Abnormal) Range: 0.57-1.00 BUN 29 mg/dL (Abnormal) Range: 8-27 Glucose, Serum 137 mg/dL (Abnormal) Range: 65-99 :02 MAGNESIUM (59170) Comments: PATIENT WAS FASTINGPERFORMED BY: [employer] [place]70 [facility] [id number] Magnesium, Serum 2.2 mg/dL (Normal) Range: 1.6-2.3 :02 MICROALBUMIN: CREATININE RATIO Comments: PATIENT WAS FASTINGPERFORMED BY: [employer] Lnistj9139 [facility] [id number] (61052) AND (15043) Microalb/Creat Ratio 2038.7 {mg/g_creat} (Abnormal) Range: 0.0-30.0 Microalbumin, Urine 1223.2 ug/mL (Normal) Comments: Results confirmed ondilution. Creatinine, Urine 60.0 mg/dL (Normal) :02 CBC WITH MANUAL DIFF Comments: PATIENT WAS FASTINGPERFORMED BY: [employer] Pbcwjx9388 [facility] [id number] Information: [id number] (94632) Immature Grans (Abs) 0.0 {x10E3/uL} (Normal) Range: 0.0-0.1 Immature Granulocytes 0 % (Normal) Baso (Absolute) 0.1 {x10E3/uL} (Normal) Range: 0.0-0.2 Eos (Absolute) 0.1 {x10E3/uL} (Normal) Range: 0.0-0.4 Monocytes(Absolute) 0.5 {x10E3/uL} (Normal) Range: 0.1-0.9 Lymphs (Absolute) 1.1 {x10E3/uL} (Normal) Range: 0.7-3.1 Neutrophils (Absolute) 2.8 {x10E3/uL} (Normal) Range: 1.4-7.0 Basos 1 % (Normal) Eos 3 % (Normal) Monocytes 11 % (Normal) Lymphs 23 % (Normal) Neutrophils 62 % (Normal) Platelets 134 {x10E3/uL} (Abnormal) Range: 150-379 RDW 13.9 % (Normal) Range: 12.3-15.4 MCHC 32.5 g/dL (Normal) Range: 31.5-35.7 MCH 28.8 pg (Normal) Range: 26.6-33.0 MCV 89 fL (Normal) Range: 79-97 Hematocrit 38.8 % (Normal) Range: 34.0-46.6 Hemoglobin 12.6 g/dL (Normal) Range: 11.1-15.9 RBC 4.38 {x10E6/uL} (Normal) Range: 3.77-5.28 WBC 4.6 {x10E3/uL} (Normal) Range: 3.4-10.8 :02 HGB A1C (73621) Comments: PATIENT WAS FASTINGPERFORMED BY: [address] [id number] Hemoglobin A1c 6.4 % (Abnormal) Range: 4.8-5.6 Comments: . Pre-diabetes: 5.7 - 6.4 Diabetes: >6.4 Glycemic control for adults with diabetes: <7.0 :02 Lipid Panel (64119) Comments: PATIENT WAS FASTINGPERFORMED BY: [address] [id number] LDL/HDL Ratio 1.1 {ratio_units} (Normal) Range: 0.0-3.2 Comments: LDL/HDL Ratio Men Women 1/2 Avg.Risk 1.0 1.5 Av g.Risk 3.6 3.2 2X Avg.Risk 6.2 5.0 3X Avg.Risk 8.0 6.1 LDL Cholesterol Calc 74 mg/dL (Normal) Range: 0-99 VLDL Cholesterol Cesar 21 mg/dL (Normal) Range: 5-40 HDL Cholesterol 65 mg/dL (Normal) Comments: According to ATP-III Guidelines, HDL-C >59 mg/dL is considered anegative risk factor for CHD. Triglycerides 103 mg/dL (Normal) Range: 0-149 Cholesterol, Total 160 mg/dL (Normal) Range: 100-199 31-Zzz-179053:03 HgA1C , Office (12660) HgA1C , Office 6.1 % (Normal) Range: 4.6 - 7.1 :24 CBC W/AUTO DIFF WBC Comments: PATIENT WAS FASTINGPERFORMED BY: [address] [id number] Information: [id number] (98817) Immature Grans (Abs) 0.0 {x10E3/uL} (Normal) Range: 0.0-0.1 Immature Granulocytes 0 % (Normal) Baso (Absolute) 0.1 {x10E3/uL} (Normal) Range: 0.0-0.2 Eos (Absolute) 0.1 {x10E3/uL} (Normal) Range: 0.0-0.4 Monocytes(Absolute) 0.4 {x10E3/uL} (Normal) Range: 0.1-0.9 Lymphs (Absolute) 0.9 {x10E3/uL} (Normal) Range: 0.7-3.1 Neutrophils (Absolute) 2.5 {x10E3/uL} (Normal) Range: 1.4-7.0 Basos 2 % (Normal) Eos 3 % (Normal) Monocytes 10 % (Normal) Lymphs 23 % (Normal) Neutrophils 62 % (Normal) Platelets 130 {x10E3/uL} (Abnormal) Range: 150-379 RDW 13.2 % (Normal) Range: 12.3-15.4 MCHC 32.2 g/dL (Normal) Range: 31.5-35.7 MCH 29.1 pg (Normal) Range: 26.6-33.0 MCV 90 fL (Normal) Range: 79-97 Hematocrit 40.7 % (Normal) Range: 34.0-46.6 Hemoglobin 13.1 g/dL (Normal) Range: 11.1-15.9 RBC 4.50 {x10E6/uL} (Normal) Range: 3.77-5.28 WBC 4.0 {x10E3/uL} (Normal) Range: 3.4-10.8 :24 MICROALBUMIN: CREATININE RATIO Comments: PATIENT WAS FASTINGPERFORMED BY: EVE LabHenry [facility] Cottage Hospital6370 [facility] [id number] (46368) AND (77308) Microalb/Creat Ratio 1223.8 {mg/g_creat} (Abnormal) Range: 0.0-30.0 Microalbumin, Urine 1012.1 ug/mL (Abnormal) Range: 0.0-17.0 Comments: Results confirmed ondilution. Creatinine, Urine 82.7 mg/dL (Normal) Range: 15.0-278.0 :24 METABOLIC PANEL, COMPREHENSIVE Comments: PATIENT WAS FASTINGPERFORMED BY: EVE LabCoSaint Michael's Medical CenterMlofmx9596 [facility] [id number] (70746) ALT (SGPT) 12 [iU]/L (Normal) Range: 0-32 AST (SGOT) 23 [iU]/L (Normal) Range: 0-40 Alkaline Phosphatase, S 79 [iU]/L (Normal) Range: 39-117 Bilirubin, Total <0.2 mg/dL (Normal) Range: 0.0-1.2 A/G Ratio 2.1 (Normal) Range: 1.1-2.5 Globulin, Total 1.9 g/dL (Normal) Range: 1.5-4.5 Albumin, Serum 3.9 g/dL (Normal) Range: 3.5-4.8 Protein, Total, Serum 5.8 g/dL (Abnormal) Range: 6.0-8.5 Calcium, Serum 9.1 mg/dL (Normal) Range: 8.7-10.3 Carbon Dioxide, Total 26 mmol/L (Normal) Range: 18-29 Chloride, Serum 103 mmol/L (Normal) Range: 97-108 Potassium, Serum 4.0 mmol/L (Normal) Range: 3.5-5.2 Sodium, Serum 143 mmol/L (Normal) Range: 134-144 BUN/Creatinine Ratio 20 (Normal) Range: 11-26 eGFR If Africn Am 41 mL/min/1.73 (Abnormal) eGFR If NonAfricn Am 36 mL/min/1.73 (Abnormal) Creatinine, Serum 1.41 mg/dL (Abnormal) Range: 0.57-1.00 BUN 28 mg/dL (Abnormal) Range: 8-27 Glucose, Serum 128 mg/dL (Abnormal) Range: 65-99 06-Jun-20158:24 LIPID PANEL (55593) Comments: PATIENT WAS FASTINGPERFORMED BY: LabCoSaint Michael's Medical CenterQeeoqk7909 [facility] [id number] LDL/HDL Ratio 1.1 {ratio_units} (Normal) Range: 0.0-3.2 Comments: LDL/HDL Ratio Men Women 1/2 Avg.Risk 1.0 1.5 Av g.Risk 3.6 3.2 2X Avg.Risk 6.2 5.0 3X Avg.Risk 8.0 6.1 LDL Cholesterol Calc 69 mg/dL (Normal) Range: 0-99 VLDL Cholesterol Cesar 17 mg/dL (Normal) Range: 5-40 HDL Cholesterol 64 mg/dL (Normal) Comments: According to ATP-III Guidelines, HDL-C >59 mg/dL is considered anegative risk factor for CHD. Triglycerides 83 mg/dL (Normal) Range: 0-149 Cholesterol, Total 150 mg/dL (Normal) Range: 100-199 :30 CBC W/Diff, Automated Comments: [facility] [address] [place], [address] Absolute Lymph 0.83 {X10_3/ul} (Normal) Range: 0.83-4.51 Absolute Neut 3.1 {X10_3/uL} (Normal) Range: 2.0-7.7 IM GRAN % 0.200 % (Normal) Range: 0.0-0.9 Comments: IG% - Immature Granulocytes (promyelocytes, myelocytes andmetamyelocytes) > 1% indicates that a LEFT SHIFT is Present. BASO% 1.8 % (Abnormal) Range: 0-1 EO% 3.1 % (Normal) Range: 0-5 MONO% 8.0 % (Normal) Range: 0-10 LY% 18.4 % (Abnormal) Range: 19-41 NEUT% 68.5 % (Normal) Range: 47-70 MPV 12.1 fL (Abnormal) Range: 6.2-12.0 PLT 177 K/mm3 (Normal) Range: 150-450 RDW SD 42.7 fL (Normal) Range: 35.1-43.9 RDW CV 12.6 % (Normal) Range: 11.6-14.6 MCHC 31.0 {g/gl} (Abnormal) Range: 32-36 MCH 29.0 pg (Normal) Range: 27.0-32.0 MCV 93.6 fL (Normal) Range: 81-99 HCT 43.6 % (Normal) Range: 37-47 HGB 13.5 g/dL (Normal) Range: 12.0-15.0 RBC 4.66 {M/mm3} (Normal) Range: 4.2-5.4 WBC 4.5 K/mm3 (Normal) Range: 4.4-11.0 63-Mgd-93365:30 Hemoglobin A1c Comments: [facility] [address]beuc[address] [place], [place], [address] HGB A1C 6.1 % (Normal) Range: 4.2-6.3 :30 Magnesium Comments: [facility] Mfmagepxqo[address] [place] [place], [place], [address] MG 1.8 mg/dL (Normal) Range: 1.8-2.4 :30 Protein+Creatinine Ratio,Urine Comments: [facility] Yrgsunbwem[address] Cleo [place], [place], [id number] PROT:CRE RATIO 2121 {mg/g_CRE} (Abnormal) Range: 0-200 PROTEIN,UR.RAN. 164.2 mg/dL (Abnormal) UR CREAT 77.40 mg/dL (Normal) :30 Renal Profile Comments: [facility] [address] [place], [place], [address] CO2 27.0 mmol/L (Normal) Range: 21.0-32.0 CL 106 mmol/L (Normal) Range: 98-107 K 4.3 mmol/L (Normal) Range: 3.5-5.1 NA 141 mmol/L (Normal) Range: 136-145 PHOS 4.1 mg/dL (Normal) Range: 2.5-4.9 CA 8.8 mg/dL (Normal) Range: 8.5-10.1 ALB 3.8 g/dL (Normal) Range: 3.4-5.0 BUN/CRE 14.9 {RATIO} (Normal) Range: 10-20 EST GFR - AA 38 mL/min (Abnormal) Comments: GFR Calc EST GFR 31 mL/min (Abnormal) Comments: Non- GFR Calc CREAT,SERUM 1.68 mg/dL (Abnormal) Range: 0.55-1.20 Comments: The validity of the calculated GFR AND GFRAA in patients over70 years has not been determined. Clinical correlation isessential. BUN 25 mg/dL (Abnormal) Range: 7-18 GLU 126 mg/dL (Abnormal) Range: 70-110 Comments: Fasting Glucose result greater than or equal to 126 mg/dLsuggests DIABETES MELLITUS per A.D.A. criteria. :00 24 HR UR Creatinine Clearance Comments: [facility] [address] [place], [place], [address] CREAT CLEARANCE 24 ml/min (Abnormal) Range: 100-200 URINE CREAT 20.6 mg/dL (Normal) EST GFR - AA 38 mL/min (Abnormal) Comments: GFR Calc EST GFR 31 mL/min (Abnormal) Comments: Non- GFR Calc SERUM CREAT 1.7 mg/dL (Abnormal) Range: 0.6-1.0 UR TOTAL VOLUME 2800 mL (Normal) UR COLLECT TIME 24.0 {HOURS} (Normal) :00 Protein, Urine 24HR Comments: [facility] [address]cgor[address] [place], [place], [id number] 24hr UR PROTEIN 1178.8 {mg/24HR} (Abnormal) URINE PROTEIN 42.1 mg/dL (Abnormal) UR TOTAL VOLUME 2800 mL (Normal) UR COLLECT TIME 24.0 {HOURS} (Normal) 9-Jjy-428983:29 Metabolic Panel, Basic Comments: PATIENT NOT FASTINGPERFORMED BY: LabCoSaint Michael's Medical CenterCsznqa1304 [facility] [id number] Information: [id number] ([id number]) Calcium, Serum 9.3 mg/dL (Normal) Range: 8.7-10.3 Carbon Dioxide, Total 26 mmol/L (Normal) Range: 18-29 Chloride, Serum 102 mmol/L (Normal) Range: 97-108 Potassium, Serum 3.9 mmol/L (Normal) Range: 3.5-5.2 Sodium, Serum 142 mmol/L (Normal) Range: 134-144 BUN/Creatinine Ratio 14 (Normal) Range: 11-26 eGFR If Africn Am 44 mL/min/1.73 (Abnormal) eGFR If NonAfricn Am 39 mL/min/1.73 (Abnormal) Creatinine, Serum 1.34 mg/dL (Abnormal) Range: 0.57-1.00 BUN 19 mg/dL (Normal) Range: 8-27 Glucose, Serum 102 mg/dL (Abnormal) Range: 65-99 [id number] Metabolic Panel, Basic Comments: tuesday; PATIENT NOT FASTINGPERFORMED BY: Your EnergySt. Lukes Des Peres HospitalSgtjnj2692 [facility] [id number] Information: [id number] ([id number]) Calcium, Serum 9.0 mg/dL (Normal) Range: 8.7-10.3 Carbon Dioxide, Total 23 mmol/L (Normal) Range: 18-29 Chloride, Serum 107 mmol/L (Normal) Range: 97-108 Potassium, Serum 3.9 mmol/L (Normal) Range: 3.5-5.2 Sodium, Serum 145 mmol/L (Abnormal) Range: 134-144 BUN/Creatinine Ratio 15 (Normal) Range: 11-26 eGFR If Africn Am 37 mL/min/1.73 (Abnormal) eGFR If NonAfricn Am 32 mL/min/1.73 (Abnormal) Creatinine, Serum 1.55 mg/dL (Abnormal) Range: 0.57-1.00 BUN 23 mg/dL (Normal) Range: 8-27 Glucose, Serum 149 mg/dL (Abnormal) Range: 65-99 :32 HgA1C , Office (89893) HgA1C , Office 6.2 % (Normal) Range: 4.6 - 7.1 :31 Rapid Strep Test, Office (55282) Comments: neg Rapid Strep Test, Office Negative (Normal) :06 THROAT CULTURE ([id number]) Comments: PATIENT NOT FASTINGPERFORMED BY: Your EnergySt. Lukes Des Peres [id number] [facility] [id number] Information: [id number] Result 1 RRF (Normal) Comments: Routine respiratory luis Upper Respiratory Culture Final report (Normal) :52 TSH ([id number]) Comments: PATIENT WAS FASTINGPERFORMED BY: Your EnergyCoCarlsbad Medical CenterLmwhfm5251 [facility] [id number] TSH 2.190 {uIU/mL} (Normal) Range: 0.450-4.500 :52 Vitamin D Hydroxy (49305) Comments: PATIENT WAS FASTINGPERFORMED BY: [facility]Co [id number] [facility] [id number] Vitamin D, 25-Hydroxy 43.8 ng/mL (Normal) Range: 30.0-100.0 Comments: Vitamin D deficiency has been defined by the [place] [employer] and an Endocrine Society practice guideline as alevel of serum 25-OH vitamin D less than 20 ng/mL (1,2).The Endocrine Society went on to further define vitamin Dinsufficiency as a level between 21 and 29 ng/mL (2).1. IOM ([place] of [employer]). 2010. Dietary reference intakes for calcium and D. [place]: The National Academies Press.2. Mira MF, Rosette LOPEZ, Tommy SWAIN, et al. Evaluation, treatment, and prevention of vitamin D deficiency: an Endocrine Society clinical practice guideline. JCEM. 2010; 96(7):1911-30. :52 LIPID PANEL (68837) Comments: PATIENT WAS FASTINGPERFORMED BY: AGNITiOAtrium Health [facility] [id number] LDL/HDL Ratio 1.3 {ratio_units} (Normal) Range: 0.0-3.2 Comments: LDL/HDL Ratio Men Women 1/2 Avg.Risk 1.0 1.5 Av g.Risk 3.6 3.2 2X Avg.Risk 6.2 5.0 3X Avg.Risk 8.0 6.1 LDL Cholesterol Calc 74 mg/dL (Normal) Range: 0-99 Comments: Please note reference interval change VLDL Cholesterol Cesar 20 mg/dL (Normal) Range: 5-40 HDL Cholesterol 59 mg/dL (Normal) Comments: According to ATP-III Guidelines, HDL-C >59 mg/dL is considered anegative risk factor for CHD. Triglycerides 100 mg/dL (Normal) Range: 0-149 Comments: Please note reference interval change Cholesterol, Total 153 mg/dL (Normal) Range: 100-199 Comments: Please note reference interval change :52 CBC with auto diff Comments: PATIENT WAS FASTINGPERFORMED BY: [employer] LabCoStraatum [employer] Hoixvc0760 VOIQ [facility] HospitalSqwiggleAtrium Health [facility] [id number] Information: [id number] (08981) Immature Grans (Abs) 0.0 {x10E3/uL} (Normal) Range: 0.0-0.1 Immature Granulocytes 0 % (Normal) Baso (Absolute) 0.1 {x10E3/uL} (Normal) Range: 0.0-0.2 Eos (Absolute) 0.1 {x10E3/uL} (Normal) Range: 0.0-0.4 Monocytes(Absolute) 0.4 {x10E3/uL} (Normal) Range: 0.1-0.9 Lymphs (Absolute) 0.9 {x10E3/uL} (Normal) Range: 0.7-3.1 Neutrophils (Absolute) 3.0 {x10E3/uL} (Normal) Range: 1.4-7.0 Basos 1 % (Normal) Eos 3 % (Normal) Monocytes 8 % (Normal) Lymphs 20 % (Normal) Neutrophils 68 % (Normal) Platelets 125 {x10E3/uL} (Abnormal) Range: 150-379 RDW 13.1 % (Normal) Range: 12.3-15.4 MCHC 32.0 g/dL (Normal) Range: 31.5-35.7 MCH 29.1 pg (Normal) Range: 26.6-33.0 MCV 91 fL (Normal) Range: 79-97 Hematocrit 39.1 % (Normal) Range: 34.0-46.6 Hemoglobin 12.5 g/dL (Normal) Range: 11.1-15.9 RBC 4.30 {x10E6/uL} (Normal) Range: 3.77-5.28 WBC 4.4 {x10E3/uL} (Normal) Range: 3.4-10.8 :52 METABOLIC PANEL, COMPREHENSIVE Comments: PATIENT WAS FASTINGPERFORMED BY: LabCoSaint Michael's Medical CenterBwqqsl3624 [facility] [id number] ([id number]) ALT (SGPT) 19 [iU]/L (Normal) Range: 0-32 AST (SGOT) 23 [iU]/L (Normal) Range: 0-40 Alkaline Phosphatase, S 83 [iU]/L (Normal) Range: 39-117 Bilirubin, Total 0.3 mg/dL (Normal) Range: 0.0-1.2 A/G Ratio 1.9 (Normal) Range: 1.1-2.5 Globulin, Total 2.1 g/dL (Normal) Range: 1.5-4.5 Albumin, Serum 3.9 g/dL (Normal) Range: 3.5-4.8 Protein, Total, Serum 6.0 g/dL (Normal) Range: 6.0-8.5 Calcium, Serum 9.1 mg/dL (Normal) Range: 8.7-10.3 Carbon Dioxide, Total 27 mmol/L (Normal) Range: 18-29 Chloride, Serum 101 mmol/L (Normal) Range: 97-108 Potassium, Serum 4.0 mmol/L (Normal) Range: 3.5-5.2 Sodium, Serum 141 mmol/L (Normal) Range: 134-144 BUN/Creatinine Ratio 18 (Normal) Range: 11-26 eGFR If Africn Am 35 mL/min/1.73 (Abnormal) eGFR If NonAfricn Am 30 mL/min/1.73 (Abnormal) Creatinine, Serum 1.64 mg/dL (Abnormal) Range: 0.57-1.00 BUN 30 mg/dL (Abnormal) Range: 8-27 Glucose, Serum 127 mg/dL (Abnormal) Range: 65-99 6-Jdc-693027:08 HgA1C , Office (80463) HgA1C , Office 6.4 % (Normal) Range: 4.6 - 7.1 6-Dln-137004:00 Creatinine Clearance Comments: PATIENT NOT FASTINGPERFORMED BY: EVE LabCoSaint Michael's Medical CenterWqvmpg2905 [facility] [id number] Information: [id number] S TART Creatinine Clearance 33 mL/min (Abnormal) Range: 88-128 Comments: The above range is based on 1.73 square meter average body surfacearea. Creatinine, Ur 24hr 642.0 {mg/24_hr} (Abnormal) Range: 800.0-1800.0 Creatinine, Urine 34.7 mg/dL (Normal) Range: 15.0-278.0 eGFR If Africn Am 43 mL/min/1.73 (Abnormal) eGFR If NonAfricn Am 37 mL/min/1.73 (Abnormal) Creatinine, Serum 1.37 mg/dL (Abnormal) Range: 0.57-1.00 9-Uni-306609:00 Protein Total, Qn, 24-Hr Comments: PATIENT NOT FASTINGPERFORMED BY: [facility] Pydoxx6593 [place] [id number] Urine Prot,24hr calculated 1309.8 {mg/24_hr} (Abnormal) Range: 30.0-150.0 Protein,Total,Urine 70.8 mg/dL (Abnormal) Range: 0.0-15.0 :01 CBC W/Diff, Automated Comments: Test performed at:[facility] K[address]lwsuxv[address]7987 [facility] [place] [address] Absolute Neut 3.1 {X10_3/uL} (Normal) Range: 2.0-7.7 IM GRAN % 0.200 % (Normal) Range: 0.0-0.9 Comments: IG% - Immature Granulocytes (promyelocytes, myelocytes andmetamyelocytes) > 1% indicates that a LEFT SHIFT is Present. BASO% 1.2 % (Abnormal) Range: 0-1 EO% 2.3 % (Normal) Range: 0-5 MONO% 8.5 % (Normal) Range: 0-10 LY% 17.1 % (Abnormal) Range: 19-41 NEUT% 70.7 % (Abnormal) Range: 47-70 MPV 11.9 fL (Normal) Range: 6.2-12.0 PLT 137 K/mm3 (Abnormal) Range: 150-450 RDW SD 43.7 fL (Normal) Range: 35.1-43.9 RDW CV 13.3 % (Normal) Range: 11.6-14.6 MCHC 32.9 {g/gl} (Normal) Range: 32-36 MCH 30.0 pg (Normal) Range: 27.0-32.0 MCV 91.0 fL (Normal) Range: 81-99 HCT 41.3 % (Normal) Range: 37-47 HGB 13.6 g/dL (Normal) Range: 12.0-15.0 RBC 4.54 {M/mm3} (Normal) Range: 4.2-5.4 WBC 4.3 K/mm3 (Abnormal) Range: 4.4-11.0 :01 Magnesium Comments: Test performed at:[facility] Ylwilqttmb5527 [facility] [place] [address] MG 2.0 mg/dL (Normal) Range: 1.8-2.4 :01 Protein+Creatinine Ratio,Urine Comments: Test performed at:[facility] [address] [place], [place] [id number] PROT:CRE RATIO 2232 {mg/g_CRE} (Abnormal) Range: 0-200 PROTEIN,UR.RAN. 160.3 mg/dL (Abnormal) UR CREAT 71.8 mg/dL (Normal) :01 Renal Profile Comments: Test performed at:[facility] [address] [place] [address] CO2 32.0 mmol/L (Normal) Range: 21.0-32.0 CL 104 mmol/L (Normal) Range: 98-107 K 4.0 mmol/L (Normal) Range: 3.5-5.1 NA 143 mmol/L (Normal) Range: 136-145 PHOS 4.5 mg/dL (Normal) Range: 2.5-4.9 CA 9.4 mg/dL (Normal) Range: 8.5-10.1 ALB 3.5 g/dL (Normal) Range: 3.4-5.0 BUN/CRE 21.4 {RATIO} (Abnormal) Range: 10-20 CREAT,SERUM 1.4 mg/dL (Abnormal) Range: 0.6-1.0 BUN 30 mg/dL (Abnormal) Range: 7-18 GLU 97 mg/dL (Normal) Range: 70-110 :08 LIPID PANEL (87313) Comments: PATIENT WAS FASTINGPERFORMED BY: LabCo Mclgne4154 [facility] [id number] LDL/HDL Ratio 1.0 {ratio_units} (Normal) Range: 0.0-3.2 Comments: LDL/HDL Ratio Men Women 1/2 Avg.Risk 1.0 1.5 Av g.Risk 3.6 3.2 2X Avg.Risk 6.2 5.0 3X Avg.Risk 8.0 6.1 LDL Cholesterol Calc 66 mg/dL (Normal) Range: 0-99 VLDL Cholesterol Cesar 17 mg/dL (Normal) Range: 5-40 HDL Cholesterol 66 mg/dL (Normal) Comments: According to ATP-III Guidelines, HDL-C >59 mg/dL is considered anegative risk factor for CHD. Triglycerides 85 mg/dL (Normal) Range: 0-149 Cholesterol, Total 149 mg/dL (Normal) Range: 100-199 :08 METABOLIC PANEL, Comments: PATIENT WAS FASTINGPERFORMED BY: LabCoSaint Michael's Medical CenterAicuiv4205 [facility] [id number] Information: [id number] COMPREHENSIVE (46424) ALT (SGPT) 29 [iU]/L (Normal) Range: 0-32 AST (SGOT) 35 [iU]/L (Normal) Range: 0-40 Alkaline Phosphatase, S 74 [iU]/L (Normal) Range: 39-117 Bilirubin, Total 0.2 mg/dL (Normal) Range: 0.0-1.2 A/G Ratio 1.9 (Normal) Range: 1.1-2.5 Globulin, Total 2.0 g/dL (Normal) Range: 1.5-4.5 Albumin, Serum 3.8 g/dL (Normal) Range: 3.5-4.8 Protein, Total, Serum 5.8 g/dL (Abnormal) Range: 6.0-8.5 Calcium, Serum 9.3 mg/dL (Normal) Range: 8.7-10.3 Carbon Dioxide, Total 24 mmol/L (Normal) Range: 18-29 Chloride, Serum 104 mmol/L (Normal) Range: 97-108 Potassium, Serum 4.3 mmol/L (Normal) Range: 3.5-5.2 Sodium, Serum 143 mmol/L (Normal) Range: 134-144 BUN/Creatinine Ratio 19 (Normal) Range: 11-26 eGFR If Africn Am 44 mL/min/1.73 (Abnormal) eGFR If NonAfricn Am 38 mL/min/1.73 (Abnormal) Creatinine, Serum 1.35 mg/dL (Abnormal) Range: 0.57-1.00 BUN 25 mg/dL (Normal) Range: 8-27 Glucose, Serum 159 mg/dL (Abnormal) Range: 65-99 3-Utp-441401:59 HgA1C , Office (60064) HgA1C , Office 6.5 % (Normal) Range: 4.6 - 7.1 :54 CBC W/AUTO DIFF WBC Comments: PATIENT WAS FASTINGPERFORMED BY: LabCHiWAO Mobile AppSaint Michael's Medical CenterNmacmy4106 [facility] [id number] Information: [id number] (30247) Immature Grans (Abs) 0.0 {x10E3/uL} (Normal) Range: 0.0-0.1 Immature Granulocytes 0 % (Normal) Baso (Absolute) 0.1 {x10E3/uL} (Normal) Range: 0.0-0.2 Eos (Absolute) 0.1 {x10E3/uL} (Normal) Range: 0.0-0.4 Monocytes(Absolute) 0.4 {x10E3/uL} (Normal) Range: 0.1-0.9 Lymphs (Absolute) 0.8 {x10E3/uL} (Normal) Range: 0.7-3.1 Neutrophils (Absolute) 2.8 {x10E3/uL} (Normal) Range: 1.4-7.0 Basos 2 % (Normal) Eos 3 % (Normal) Monocytes 9 % (Normal) Lymphs 19 % (Normal) Neutrophils 67 % (Normal) Platelets 166 {x10E3/uL} (Normal) Range: 150-379 RDW 13.3 % (Normal) Range: 12.3-15.4 MCHC 32.5 g/dL (Normal) Range: 31.5-35.7 MCH 28.6 pg (Normal) Range: 26.6-33.0 MCV 88 fL (Normal) Range: 79-97 Hematocrit 38.1 % (Normal) Range: 34.0-46.6 Hemoglobin 12.4 g/dL (Normal) Range: 11.1-15.9 RBC 4.34 {x10E6/uL} (Normal) Range: 3.77-5.28 WBC 4.2 {x10E3/uL} (Normal) Range: 3.4-10.8 :54 METABOLIC PANEL, COMPREHENSIVE Comments: PATIENT WAS FASTINGPERFORMED BY: LabCoSaint Michael's Medical CenterFqffma8675 [facility] [id number]; non- emergent till apt (21801) ALT (SGPT) 13 [iU]/L (Normal) Range: 0-32 AST (SGOT) 21 [iU]/L (Normal) Range: 0-40 Alkaline Phosphatase, S 76 [iU]/L (Normal) Range: 39-117 Bilirubin, Total 0.2 mg/dL (Normal) Range: 0.0-1.2 A/G Ratio 2.0 (Normal) Range: 1.1-2.5 Globulin, Total 2.0 g/dL (Normal) Range: 1.5-4.5 Albumin, Serum 3.9 g/dL (Normal) Range: 3.5-4.8 Protein, Total, Serum 5.9 g/dL (Abnormal) Range: 6.0-8.5 Calcium, Serum 9.4 mg/dL (Normal) Range: 8.7-10.3 Carbon Dioxide, Total 26 mmol/L (Normal) Range: 18-29 Chloride, Serum 104 mmol/L (Normal) Range: 97-108 Potassium, Serum 4.5 mmol/L (Normal) Range: 3.5-5.2 Sodium, Serum 144 mmol/L (Normal) Range: 134-144 BUN/Creatinine Ratio 16 (Normal) Range: 11-26 eGFR If Africn Am 42 mL/min/1.73 (Abnormal) eGFR If NonAfricn Am 36 mL/min/1.73 (Abnormal) Creatinine, Serum 1.41 mg/dL (Abnormal) Range: 0.57-1.00 BUN 22 mg/dL (Normal) Range: 8-27 Glucose, Serum 142 mg/dL (Abnormal) Range: 65-99 98-Lhm-28353:54 LIPID PANEL (08037) Comments: PATIENT WAS FASTINGPERFORMED BY: [facility] [place] [facility]6370 [facility] [id number] LDL/HDL Ratio 1.1 {ratio_units} (Normal) Range: 0.0-3.2 Comments: LDL/HDL Ratio Men Women 1/2 Avg.Risk 1.0 1.5 Av g.Risk 3.6 3.2 2X Avg.Risk 6.2 5.0 3X Avg.Risk 8.0 6.1 LDL Cholesterol Calc 63 mg/dL (Normal) Range: 0-99 VLDL Cholesterol Cesar 20 mg/dL (Normal) Range: 5-40 HDL Cholesterol 57 mg/dL (Normal) Comments: According to ATP-III Guidelines, HDL-C >59 mg/dL is considered anegative risk factor for CHD. Triglycerides 101 mg/dL (Normal) Range: 0-149 Cholesterol, Total 140 mg/dL (Normal) Range: 100-199 9-Tyg-536972:29 HgA1C , Office (51868) HgA1C , Office 6.6 % (Normal) Range: 4.6 - 7.1 :12 CBC W/Diff, Automated Comments: Test performed at:[facility] [address] [place], [place] [address] ; handled by Dr. Santana Absolute Lymph 1.25 {X10_3/ul} (Normal) Range: 0.83-4.51 Absolute Neut 3.3 {X10_3/uL} (Normal) Range: 2.0-7.7 IM GRAN % 0.200 % (Normal) Range: 0.0-0.9 Comments: IG% - Immature Granulocytes (promyelocytes, myelocytes andmetamyelocytes) > 1% indicates that a LEFT SHIFT is Present. BASO% 0.9 % (Normal) Range: 0-1 EO% 2.8 % (Normal) Range: 0-5 MONO% 10.0 % (Normal) Range: 0-10 LY% 23.6 % (Normal) Range: 19-41 NEUT% 62.5 % (Normal) Range: 47-70 MPV 12.1 fL (Abnormal) Range: 6.2-12.0 PLT 161 K/mm3 (Normal) Range: 150-450 RDW SD 42.9 fL (Normal) Range: 35.1-43.9 RDW CV 13.0 % (Normal) Range: 11.6-14.6 MCHC 31.4 {g/gl} (Abnormal) Range: 32-36 MCH 29.0 pg (Normal) Range: 27.0-32.0 MCV 92.6 fL (Normal) Range: 81-99 HCT 42.4 % (Normal) Range: 37-47 HGB 13.3 g/dL (Normal) Range: 12.0-15.0 RBC 4.58 {M/mm3} (Normal) Range: 4.2-5.4 WBC 5.3 K/mm3 (Normal) Range: 4.4-11.0 :12 Magnesium Comments: Test performed at:[facility] [address] [place] [address] MG 2.0 mg/dL (Normal) Range: 1.8-2.4 :12 Microalb:Creat Ratio,Random UR Comments: Test performed at:[facility] Rxkdixgewk[address]0 [facility] [place] [address] ; Dr. Angelo LING:CREAT 1483.0 {mg/g_CRE} (Abnormal) MICROALBUMIN,UR 918.0 mg/L (Normal) UR CREAT 61.9 mg/dL (Normal) :12 Renal Profile Comments: Test performed at:[facility] [address] [place] [address] CO2 29.0 mmol/L (Normal) Range: 21.0-32.0 CL 104 mmol/L (Normal) Range: 98-107 K 4.9 mmol/L (Normal) Range: 3.5-5.1 NA 141 mmol/L (Normal) Range: 136-145 PHOS 4.5 mg/dL (Normal) Range: 2.5-4.9 CA 9.4 mg/dL (Normal) Range: 8.5-10.1 ALB 3.5 g/dL (Normal) Range: 3.4-5.0 BUN/CRE 23.6 {RATIO} (Abnormal) Range: 10-20 CREAT,SERUM 1.4 mg/dL (Abnormal) Range: 0.6-1.0 BUN 33 mg/dL (Abnormal) Range: 7-18 GLU 144 mg/dL (Abnormal) Range: 70-110 Comments: Fasting Glucose result greater than or equal to 126 mg/dLsuggests DIABETES MELLITUS per A.D.A. criteria. 10-Uil-415741:20 LIPID PANEL (26049) Comments: PATIENT WAS FASTINGPERFORMED BY: [facility] Pmvojs6428 [facility] [id number] LDL/HDL Ratio 1.0 {ratio_units} (Normal) Range: 0.0-3.2 Comments: LDL/HDL Ratio Men Women 1/2 Avg.Risk 1.0 1.5 Av g.Risk 3.6 3.2 2X Avg.Risk 6.2 5.0 3X Avg.Risk 8.0 6.1 LDL Cholesterol Calc 67 mg/dL (Normal) Range: 0-99 VLDL Cholesterol Cesar 16 mg/dL (Normal) Range: 5-40 HDL Cholesterol 68 mg/dL (Normal) Comments: According to ATP-III Guidelines, HDL-C >59 mg/dL is considered anegative risk factor for CHD. Triglycerides 79 mg/dL (Normal) Range: 0-149 Cholesterol, Total 151 mg/dL (Normal) Range: 100-199 12-Hyq-331928:20 METABOLIC PANEL, Comments: PATIENT WAS FASTINGPERFORMED BY: LabCoSaint Michael's Medical CenterHdzmyh0856 [facility] [id number] Information: [id number] COMPREHENSIVE (09746) ALT (SGPT) 16 [iU]/L (Normal) Range: 0-32 AST (SGOT) 24 [iU]/L (Normal) Range: 0-40 Alkaline Phosphatase, S 89 [iU]/L (Normal) Range: 39-117 Bilirubin, Total 0.2 mg/dL (Normal) Range: 0.0-1.2 A/G Ratio 2.0 (Normal) Range: 1.1-2.5 Globulin, Total 2.1 g/dL (Normal) Range: 1.5-4.5 Albumin, Serum 4.1 g/dL (Normal) Range: 3.5-4.8 Protein, Total, Serum 6.2 g/dL (Normal) Range: 6.0-8.5 Calcium, Serum 9.5 mg/dL (Normal) Range: 8.6-10.2 Carbon Dioxide, Total 24 mmol/L (Normal) Range: 18-29 Chloride, Serum 101 mmol/L (Normal) Range: 97-108 Potassium, Serum 5.1 mmol/L (Normal) Range: 3.5-5.2 Sodium, Serum 141 mmol/L (Normal) Range: 134-144 BUN/Creatinine Ratio 26 (Normal) Range: 11-26 eGFR If Africn Am 46 mL/min/1.73 (Abnormal) eGFR If NonAfricn Am 40 mL/min/1.73 (Abnormal) Creatinine, Serum 1.29 mg/dL (Abnormal) Range: 0.57-1.00 BUN 33 mg/dL (Abnormal) Range: 8-27 Glucose, Serum 148 mg/dL (Abnormal) Range: 65-99 72-Abk-863328:21 CREATININE CLEARANCE Comments: PATIENT WAS FASTINGPERFORMED BY: [place] [id number] [facility] [id number] Information: [id number] START 04/02/14@9AM FINISH 04/03/14 6:00 AM (07436) Creatinine Clearance 42 mL/min (Abnormal) Range: 88-128 Comments: The above range is based on 1.73 square meter average body surfacearea. Creatinine, Ur 24hr 812.3 {mg/24_hr} (Normal) Range: 800.0-1800.0 Creatinine, Urine 28.5 mg/dL (Normal) Range: 15.0-278.0 eGFR If Africn Am 45 mL/min/1.73 (Abnormal) eGFR If NonAfricn Am 39 mL/min/1.73 (Abnormal) Creatinine, Serum 1.33 mg/dL (Abnormal) Range: 0.57-1.00 77-Uhe-945933:21 Total Protein,24 Hour Urine Comments: PATIENT WAS FASTINGPERFORMED BY: [facility] [place] [facility]6370 [facility] [id number] (45809) Prot,24hr calculated 1559.0 {mg/24_hr} (Abnormal) Range: 30.0-150.0 Protein,Total,Urine 54.7 mg/dL (Abnormal) Range: 0.0-15.0 :57 LIPID PANEL (25839) Comments: PATIENT WAS FASTINGPERFORMED BY: [facility] [place] [facility]6370 [facility] [id number] LDL/HDL Ratio 1.1 {ratio_units} (Normal) Range: 0.0-3.2 Comments: LDL/HDL Ratio Men Women 1/2 Avg.Risk 1.0 1.5 Av g.Risk 3.6 3.2 2X Avg.Risk 6.2 5.0 3X Avg.Risk 8.0 6.1 LDL Cholesterol Calc 71 mg/dL (Normal) Range: 0-99 VLDL Cholesterol Cesar 25 mg/dL (Normal) Range: 5-40 HDL Cholesterol 65 mg/dL (Normal) Comments: According to ATP-III Guidelines, HDL-C >59 mg/dL is considered anegative risk factor for CHD. Triglycerides 127 mg/dL (Normal) Range: 0-149 Cholesterol, Total 161 mg/dL (Normal) Range: 100-199 :57 CBC WITH MANUAL DIFF Comments: PATIENT WAS FASTINGPERFORMED BY: [facility] [place] [facility]6370 [facility] [id number] Information: [id number] (51989) Immature Grans (Abs) 0.0 {x10E3/uL} (Normal) Range: 0.0-0.1 Immature Granulocytes 0 % (Normal) Baso (Absolute) 0.0 {x10E3/uL} (Normal) Range: 0.0-0.2 Eos (Absolute) 0.1 {x10E3/uL} (Normal) Range: 0.0-0.4 Monocytes(Absolute) 0.5 {x10E3/uL} (Normal) Range: 0.1-0.9 Lymphs (Absolute) 0.9 {x10E3/uL} (Normal) Range: 0.7-3.1 Neutrophils (Absolute) 2.3 {x10E3/uL} (Normal) Range: 1.4-7.0 Basos 1 % (Normal) Eos 3 % (Normal) Monocytes 12 % (Normal) Lymphs 23 % (Normal) Neutrophils 61 % (Normal) Platelets 130 {x10E3/uL} (Abnormal) Range: 150-379 RDW 13.4 % (Normal) Range: 12.3-15.4 MCHC 32.5 g/dL (Normal) Range: 31.5-35.7 MCH 29.4 pg (Normal) Range: 26.6-33.0 MCV 91 fL (Normal) Range: 79-97 Hematocrit 38.5 % (Normal) Range: 34.0-46.6 Hemoglobin 12.5 g/dL (Normal) Range: 11.1-15.9 RBC 4.25 {x10E6/uL} (Normal) Range: 3.77-5.28 WBC 3.7 {x10E3/uL} (Normal) Range: 3.4-10.8 :57 METABOLIC PANEL, COMPREHENSIVE Comments: PATIENT WAS FASTINGPERFORMED BY: LabCoSaint Michael's Medical CenterPfnhpo6939 [facility] [id number] ([id number]) ALT (SGPT) 10 [iU]/L (Normal) Range: 0-32 AST (SGOT) 19 [iU]/L (Normal) Range: 0-40 Alkaline Phosphatase, S 67 [iU]/L (Normal) Range: 39-117 Bilirubin, Total 0.2 mg/dL (Normal) Range: 0.0-1.2 A/G Ratio 2.1 (Normal) Range: 1.1-2.5 Globulin, Total 1.9 g/dL (Normal) Range: 1.5-4.5 Albumin, Serum 3.9 g/dL (Normal) Range: 3.5-4.8 Protein, Total, Serum 5.8 g/dL (Abnormal) Range: 6.0-8.5 Calcium, Serum 9.3 mg/dL (Normal) Range: 8.6-10.2 Carbon Dioxide, Total 25 mmol/L (Normal) Range: 18-29 Chloride, Serum 108 mmol/L (Normal) Range: 97-108 Potassium, Serum 4.1 mmol/L (Normal) Range: 3.5-5.2 Sodium, Serum 144 mmol/L (Normal) Range: 134-144 BUN/Creatinine Ratio 27 (Abnormal) Range: 11-26 eGFR If Africn Am 43 mL/min/1.73 (Abnormal) eGFR If NonAfricn Am 37 mL/min/1.73 (Abnormal) Creatinine, Serum 1.39 mg/dL Range: 0.57-1.00 (Abnormal) BUN 38 mg/dL (Abnormal) Range: 8-27 Glucose, Serum 102 mg/dL (Abnormal) Range: 65-99 :0 C3 128 (Normal) Range: 90-180 0 Comments: Result Units: mg/dL AdultPerformed at: - [facility] [address] [id number] Director: Yousuf Bernardo PhD, Phone: [phone] C4 37 (Abnormal) Range: 9-36 0 Comments: Result Units: mg/dL Adult :00 CBCD ALC 0.66 {X10_3/ul} (Abnormal) Range: 0.83-4.51 ANC 3.3 {X10_3/uL} (Normal) Range: 2.0-7.7 IG% 0.200 % (Normal) Range: 0.0-0.9 Comments: IG% - Immature Granulocytes (promyelocytes, myelocytes andmetamyelocytes) > 1% indicates that a LEFT SHIFT is Present. B% 0.9 % (Normal) Range: 0-1 E% 2.6 % (Normal) Range: 0-5 M% 8.4 % (Normal) Range: 0-10 L% 14.5 % (Abnormal) Range: 19-41 N% 73.4 % (Abnormal) Range: 47-70 MPV 12.2 fL (Abnormal) Range: 6.2-12.0 PLT 122 K/mm3 (Abnormal) Range: 150-450 RDWSD 41.9 fL (Normal) Range: 35.1-43.9 RDWCV 12.7 % (Normal) Range: 11.6-14.6 MCHC 31.9 {g/gl} (Abnormal) Range: 32-36 MCH 29.6 pg (Normal) Range: 27.0-32.0 MCV 93.0 fL (Normal) Range: 81-99 HCT 38.6 % (Normal) Range: 37-47 HGB 12.3 g/dL (Normal) Range: 12.0-15.0 RBC 4.15 {M/mm3} (Abnormal) Range: 4.2-5.4 WBC 4.6 K/mm3 (Normal) Range: 4.4-11.0 91-Anu-71169:00 CMP GAP 3 (Abnormal) Range: 5-15 CO2 29.0 mmol/L (Normal) Range: 21.0-32.0 CL 109 mmol/L (Abnormal) Range: 98-107 K 4.3 mmol/L (Normal) Range: 3.5-5.1 NA 141 mmol/L (Normal) Range: 136-145 BIT 0.20 mg/dL (Normal) Range: 0.00-1.00 ALT 22 U/L (Normal) Range: 12-78 ALK 83 U/L (Normal) Range: 45-117 AST 16 U/L (Normal) Range: 15-37 CA 8.5 mg/dL (Normal) Range: 8.5-10.1 AG 1.2 {RATIO} (Normal) Range: 0.9-2.4 GLOB 2.7 g/dL (Normal) Range: 2.7-4.2 ALB 3.2 g/dL (Abnormal) Range: 3.4-5.0 TPROT 5.9 g/dL (Abnormal) Range: 6.4-8.2 BC 24.1 {RATIO} (Abnormal) Range: 10-20 CREAT 1.7 mg/dL (Abnormal) Range: 0.6-1.0 BUN 41 mg/dL (Abnormal) Range: 7-18 GLU 83 mg/dL (Normal) Range: 70-110 :00 MG 1.8 mg/dL (Normal) Range: 1.8-2.4 :00 PHOS 4.1 mg/dL (Normal) Range: 2.5-4.9 :00 PROCRER tPROCRER 1533 {mg/g_CRE} (Abnormal) Range: 0-200 PROUR 75.6 mg/dL (Abnormal) CREU 49.3 mg/dL (Normal) 96-Qvk-71811:21 CBC WITH MANUAL DIFF Comments: PATIENT WAS FASTINGPERFORMED BY: LabCoSaint Michael's Medical CenterXnwemh7431 [facility] [id number] Information: [id number] (66037) Immature Grans (Abs) 0.0 {x10E3/uL} (Normal) Range: 0.0-0.1 Immature Granulocytes 0 % (Normal) Range: 0-2 Baso (Absolute) 0.0 {x10E3/uL} (Normal) Range: 0.0-0.2 Eos (Absolute) 0.1 {x10E3/uL} (Normal) Range: 0.0-0.4 Monocytes(Absolute) 0.4 {x10E3/uL} (Normal) Range: 0.1-0.9 Lymphs (Absolute) 0.9 {x10E3/uL} (Normal) Range: 0.7-3.1 Neutrophils (Absolute) 3.0 {x10E3/uL} (Normal) Range: 1.4-7.0 Basos 1 % (Normal) Range: 0-3 Eos 3 % (Normal) Range: 0-5 Monocytes 9 % (Normal) Range: 4-12 Lymphs 19 % (Normal) Range: 14-46 Neutrophils 68 % (Normal) Range: 40-74 Platelets 154 {x10E3/uL} (Normal) Range: 150-379 RDW 13.6 % (Normal) Range: 12.3-15.4 MCHC 34.0 g/dL (Normal) Range: 31.5-35.7 MCH 29.8 pg (Normal) Range: 26.6-33.0 MCV 88 fL (Normal) Range: 79-97 Hematocrit 40.3 % (Normal) Range: 34.0-46.6 Hemoglobin 13.7 g/dL (Normal) Range: 11.1-15.9 RBC 4.60 {x10E6/uL} (Normal) Range: 3.77-5.28 WBC 4.5 {x10E3/uL} (Normal) Range: 3.4-10.8 39-Iis-70206:21 METABOLIC PANEL, COMPREHENSIVE Comments: PATIENT WAS FASTINGPERFORMED BY: LabHenry [facility]6370 [facility] [id number] ([id number]) ALT (SGPT) 16 [iU]/L (Normal) Range: 0-32 Alkaline Phosphatase, S 66 [iU]/L (Normal) Range: 39-117 AST (SGOT) 20 [iU]/L (Normal) Range: 0-40 Bilirubin, Total 0.2 mg/dL (Normal) Range: 0.0-1.2 A/G Ratio 1.7 (Normal) Range: 1.1-2.5 Globulin, Total 2.3 g/dL (Normal) Range: 1.5-4.5 Albumin, Serum 3.8 g/dL (Normal) Range: 3.5-4.8 Protein, Total, Serum 6.1 g/dL (Normal) Range: 6.0-8.5 Calcium, Serum 9.6 mg/dL (Normal) Range: 8.6-10.2 Carbon Dioxide, Total 26 mmol/L (Normal) Range: 18-29 Chloride, Serum 102 mmol/L (Normal) Range: 97-108 Potassium, Serum 4.3 mmol/L (Normal) Range: 3.5-5.2 Sodium, Serum 143 mmol/L (Normal) Range: 134-144 BUN/Creatinine Ratio 15 (Normal) Range: 11-26 eGFR If Africn Am 44 mL/min/1.73 (Abnormal) eGFR If NonAfricn Am 38 mL/min/1.73 (Abnormal) Creatinine, Serum 1.36 mg/dL (Abnormal) Range: 0.57-1.00 BUN 20 mg/dL (Normal) Range: 8-27 Glucose, Serum 132 mg/dL (Abnormal) Range: 65-99 70-Meu-933423:53 CREATININE CLEARANCE Comments: PATIENT NOT FASTINGPERFORMED BY: [employer] [facility] [id number] Information: [id number] START 10/30/13@8AM F INISH 10/31/13@8AM 2650ML ([id number]) Creatinine Clearance 44 mL/min (Abnormal) Range: 88-128 Comments: The above range is based on 1.73 square meter average body surfacearea. Creatinine, Ur 24hr 877.2 {mg/24_hr} (Normal) Range: 800.0-1800.0 Creatinine, Urine 33.1 mg/dL (Normal) Range: 15.0-278.0 eGFR If Africn Am 44 mL/min/1.73 (Abnormal) eGFR If NonAfricn Am 38 mL/min/1.73 (Abnormal) Creatinine, Serum 1.37 mg/dL (Abnormal) Range: 0.57-1.00 82-Aex-101770:53 Total Protein,24 Hour Urine Comments: PATIENT NOT FASTINGPERFORMED BY: [employer]70 [facility] [id number] ([id number]) Prot,24hr calculated 3458.3 {mg/24_hr} (Abnormal) Range: 30.0-150.0 Protein,Total,Urine 130.5 mg/dL (Abnormal) Range: 0.0-15.0 61-Rsv-465035:31 HgA1C , Office ([id number]) HgA1C , Office 6.4 % (Normal) Range: 4.6 - 7.1 27-Avg-809119:27 Microscopic Examination Comments: PATIENT WAS FASTINGPERFORMED BY: [id number] [facility] [id number] Bacteria Few (Normal) Mucus Threads Present (Normal) Epithelial Cells (non renal) 0-10 {/hpf} (Normal) Range: 0 - 10 RBC 3-10 {/hpf} (Abnormal) Range: 0 - 2 WBC 6-10 {/hpf} (Abnormal) Range: 0 - 5 :32 LIPID PANEL ([id number]) Comments: PATIENT WAS FASTINGPERFORMED BY: [employer] [facility] [id number] LDL/HDL Ratio 1.0 {ratio_units} (Normal) Range: 0.0-3.2 LDL Cholesterol Calc 72 mg/dL (Normal) Range: 0-99 VLDL Cholesterol Cesar 22 mg/dL (Normal) Range: 5-40 HDL Cholesterol 71 mg/dL (Normal) Comments: According to ATP-III Guidelines, HDL-C >59 mg/dL is considered anegative risk factor for CHD. Triglycerides 111 mg/dL (Normal) Range: 0-149 Cholesterol, Total 165 mg/dL (Normal) Range: 100-199 :32 MICROALBUMIN: CREATININE RATIO Comments: PATIENT WAS FASTINGPERFORMED BY: [facility] [place] [id number] ([id number]) AND (84387) Microalb/Creat Ratio 1998.9 {mg/g_creat} (Abnormal) Range: 0.0-30.0 Creatinine, Urine 73.4 mg/dL (Normal) Range: 15.0-278.0 Microalbumin, Urine 1467.2 ug/mL (Abnormal) Range: 0.0-17.0 :32 URINALYSIS, W/ MICRO (24002) Comments: PATIENT WAS FASTINGPERFORMED BY: [facility] [place] [id number] Microscopic Examination See below: (Normal) Comments: Microscopic was indicated and was performed. Nitrite, Urine Negative (Normal) Urobilinogen,Semi-Qn 0.2 mg/dL (Normal) Range: 0.0-1.9 Bilirubin Negative (Normal) Occult Blood Trace (Abnormal) Ketones Negative (Normal) Glucose Negative (Normal) Protein 3+ (Abnormal) WBC Esterase Trace (Abnormal) Appearance Clear (Normal) Urine-Color Yellow (Normal) pH 6.5 (Normal) Range: 5.0-7.5 Specific [place] 1.015 (Normal) Range: 1.005-1.030 :32 CBC WITH MANUAL DIFF Comments: PATIENT WAS FASTINGPERFORMED BY: [facility]CoSaint [facility] CenterTfpxfz8939 [facility] [id number] Information: [id number] (98287) Immature Grans (Abs) 0.0 {x10E3/uL} (Normal) Range: 0.0-0.1 Immature Granulocytes 0 % (Normal) Range: 0-2 Baso (Absolute) 0.0 {x10E3/uL} (Normal) Range: 0.0-0.2 Eos (Absolute) 0.1 {x10E3/uL} (Normal) Range: 0.0-0.4 Monocytes(Absolute) 0.4 {x10E3/uL} (Normal) Range: 0.1-0.9 Lymphs (Absolute) 0.9 {x10E3/uL} (Normal) Range: 0.7-3.1 Neutrophils (Absolute) 2.2 {x10E3/uL} (Normal) Range: 1.4-7.0 Basos 1 % (Normal) Range: 0-3 Eos 3 % (Normal) Range: 0-5 Monocytes 12 % (Normal) Range: 4-12 Lymphs 25 % (Normal) Range: 14-46 Neutrophils 59 % (Normal) Range: 40-74 Platelets 107 {x10E3/uL} (Abnormal) Range: 150-379 RDW 13.8 % (Normal) Range: 12.3-15.4 MCHC 32.3 g/dL (Normal) Range: 31.5-35.7 MCH 28.8 pg (Normal) Range: 26.6-33.0 MCV 89 fL (Normal) Range: 79-97 Hematocrit 39.6 % (Normal) Range: 34.0-46.6 Hemoglobin 12.8 g/dL (Normal) Range: 11.1-15.9 RBC 4.45 {x10E6/uL} (Normal) Range: 3.77-5.28 WBC 3.7 {x10E3/uL} (Normal) Range: 3.4-10.8 :32 METABOLIC PANEL, COMPREHENSIVE Comments: PATIENT WAS FASTINGPERFORMED BY: [facility] LightingSaint Michael's Medical CenterLaehsd5187 [facility] [id number] ([id number]) ALT (SGPT) 16 [iU]/L (Normal) Range: 0-32 AST (SGOT) 21 [iU]/L (Normal) Range: 0-40 Alkaline Phosphatase, S 62 [iU]/L (Normal) Range: 39-117 Bilirubin, Total 0.2 mg/dL (Normal) Range: 0.0-1.2 A/G Ratio 2.0 (Normal) Range: 1.1-2.5 Globulin, Total 1.9 g/dL (Normal) Range: 1.5-4.5 Albumin, Serum 3.8 g/dL (Normal) Range: 3.5-4.8 Protein, Total, Serum 5.7 g/dL (Abnormal) Range: 6.0-8.5 Calcium, Serum 9.1 mg/dL (Normal) Range: 8.6-10.2 Carbon Dioxide, Total 24 mmol/L (Normal) Range: 18-29 Chloride, Serum 106 mmol/L (Normal) Range: 97-108 Potassium, Serum 4.5 mmol/L (Normal) Range: 3.5-5.2 Sodium, Serum 144 mmol/L (Normal) Range: 134-144 BUN/Creatinine Ratio 17 (Normal) Range: 11-26 eGFR If Africn Am 35 mL/min/1.73 (Abnormal) eGFR If NonAfricn Am 30 mL/min/1.73 (Abnormal) Creatinine, Serum 1.65 mg/dL (Abnormal) Range: 0.57-1.00 BUN 28 mg/dL (Abnormal) Range: 8-27 Glucose, Serum 135 mg/dL (Abnormal) Range: 65-99 99-Sps-10895:32 VITAMIN B-12 (CYANOCOBALAMIN) Comments: PATIENT WAS FASTINGPERFORMED BY: [facility] EnergyHenry [facility] Hospital6370 [facility] [id number] ([id number]) Vitamin B12 >1999 pg/mL (Abnormal) Range: 211-946 80-Hhg-036490:01 HgA1C , Office (86797) HgA1C , Office 6.4 % (Normal) Range: 4.6 - 7.1 58-Cjb-40156:37 METABOLIC PANEL, COMPREHENSIVE Comments: PATIENT WAS FASTINGPERFORMED BY: [facility] Ghxvtd1548 [facility] [id number] (26209) ALT (SGPT) 12 [iU]/L (Normal) Range: 0-32 AST (SGOT) 22 [iU]/L (Normal) Range: 0-40 Alkaline Phosphatase, S 57 [iU]/L (Normal) Range: 39-117 Bilirubin, Total 0.2 mg/dL (Normal) Range: 0.0-1.2 A/G Ratio 1.7 (Normal) Range: 1.1-2.5 Globulin, Total 2.2 g/dL (Normal) Range: 1.5-4.5 Albumin, Serum 3.7 g/dL (Normal) Range: 3.5-4.8 Protein, Total, Serum 5.9 g/dL (Abnormal) Range: 6.0-8.5 Calcium, Serum 9.2 mg/dL (Normal) Range: 8.6-10.2 Carbon Dioxide, Total 26 mmol/L (Normal) Range: 19-28 Chloride, Serum 103 mmol/L (Normal) Range: 97-108 Potassium, Serum 4.1 mmol/L (Normal) Range: 3.5-5.2 Sodium, Serum 141 mmol/L (Normal) Range: 134-144 BUN/Creatinine Ratio 22 (Normal) Range: 11-26 eGFR If Africn Am 43 mL/min/1.73 (Abnormal) Creatinine, Serum 1.38 mg/dL (Abnormal) Range: 0.57-1.00 eGFR If NonAfricn Am 37 mL/min/1.73 (Abnormal) BUN 30 mg/dL (Abnormal) Range: 8-27 Glucose, Serum 130 mg/dL (Abnormal) Range: 65-99 13-Fho-70111:37 Vitamin D Hydroxy (25823) Comments: PATIENT WAS FASTINGPERFORMED BY: LabCoSaint Michael's Medical CenterMvgvil4670 [facility] [id number] Vitamin D, 25-Hydroxy 47.4 ng/mL (Normal) Range: 30.0-100.0 Comments: Vitamin D deficiency has been defined by the [place] of[place] and an Endocrine Society practice guideline as alevel of serum 25-OH vitamin D less than 20 ng/mL (1,2).The Endocrine Society went on to further define vitamin Dinsufficiency as a level between 21 and 29 ng/mL (2).1. IOM ([place] of Medicine). 2010. Dietary reference intakes for calcium and D. [place]: The National Academies Press.2. Mira MF, Rosette LOPEZ, Tommy SWAIN, et al. Evaluation, treatment, and prevention of vitamin D deficiency: an Endocrine Society clinical practice guideline. JCEM. 2010; 96(7):1911-30. :37 LIPID PANEL (02499) Comments: PATIENT WAS FASTINGPERFORMED BY: Pembe Panjur6370 [facility] [id number] LDL/HDL Ratio 1.2 {ratio_units} (Normal) Range: 0.0-3.2 LDL Cholesterol Calc 79 mg/dL (Normal) Range: 0-99 HDL Cholesterol 66 mg/dL (Normal) Comments: According to ATP-III Guidelines, HDL-C >59 mg/dL is considered anegative risk factor for CHD. VLDL Cholesterol Cesar 20 mg/dL (Normal) Range: 5-40 Triglycerides 100 mg/dL (Normal) Range: 0-149 Cholesterol, Total 165 mg/dL (Normal) Range: 100-199 :37 CBC WITH MANUAL DIFF Comments: PATIENT WAS FASTINGPERFORMED BY: NVC LightingSaint Michael's Medical CenterZrmogl0069 [facility] [id number] Information: [id number] (28762) Immature Grans (Abs) 0.0 {x10E3/uL} (Normal) Range: 0.0-0.1 Immature Granulocytes 0 % (Normal) Range: 0-2 Baso (Absolute) 0.1 {x10E3/uL} (Normal) Range: 0.0-0.2 Eos (Absolute) 0.1 {x10E3/uL} (Normal) Range: 0.0-0.4 Monocytes(Absolute) 0.4 {x10E3/uL} (Normal) Range: 0.1-0.9 Lymphs (Absolute) 0.9 {x10E3/uL} (Normal) Range: 0.7-3.1 Neutrophils (Absolute) 2.0 {x10E3/uL} (Normal) Range: 1.4-7.0 Basos 1 % (Normal) Range: 0-3 Eos 4 % (Normal) Range: 0-5 Monocytes 11 % (Normal) Range: 4-12 Lymphs 25 % (Normal) Range: 14-46 Neutrophils 59 % (Normal) Range: 40-74 Platelets 148 {x10E3/uL} (Abnormal) Range: 155-379 RDW 13.6 % (Normal) Range: 12.3-15.4 MCH 28.4 pg (Normal) Range: 26.6-33.0 MCHC 32.4 g/dL (Normal) Range: 31.5-35.7 MCV 88 fL (Normal) Range: 79-97 Hematocrit 40.1 % (Normal) Range: 34.0-46.6 Hemoglobin 13.0 g/dL (Normal) Range: 11.1-15.9 RBC 4.58 {x10E6/uL} (Normal) Range: 3.77-5.28 WBC 3.5 {x10E3/uL} (Normal) Range: 3.4-10.8 :52 Protein Total, Qn, 24-Hr Comments: PATIENT NOT FASTINGPERFORMED BY: [employer] LightingAng[place] [id number] [facility] [id number] Information: ADD [id number] AND DRAW FEE 99 6660 VOLUME 2600 164LBS 5' '3 Urine Prot,24hr calculated 920.4 {mg/24_hr} Range: 30.0-150.0 (Abnormal) Protein,Total,Urine 35.4 mg/dL Range: 0.0-15.0 (Abnormal) : Written Authorization WAR (Normal) Comments: PATIENT NOT FASTINGPERFORMED BY: [employer] EnergyK[place] [id number] [facility] [id number] Comments: Written Authorization Received.Authorization received from Chiqui BRICEÑO LPN [id number] by Marleen Sharma :52 Metabolic Panel, Basic Comments: PATIENT NOT FASTINGPERFORMED BY: [address] [id number] Information: ADD [id number] AND DRAW FEE 99 6660 VOLUME 2600 164LBS 5' '3 (10149) Calcium, Serum 9.7 mg/dL (Normal) Range: 8.6-10.2 Carbon Dioxide, Total 24 mmol/L (Normal) Range: 19-28 Chloride, Serum 104 mmol/L (Normal) Range: 97-108 Potassium, Serum 3.9 mmol/L (Normal) Range: 3.5-5.2 Sodium, Serum 143 mmol/L (Normal) Range: 134-144 BUN/Creatinine Ratio 26 (Normal) Range: 11-26 eGFR If Africn Am 44 mL/min/1.73 (Abnormal) Creatinine, Serum 1.36 mg/dL (Abnormal) Range: 0.57-1.00 eGFR If NonAfricn Am 38 mL/min/1.73 (Abnormal) BUN 35 mg/dL (Abnormal) Range: 8-27 Glucose, Serum 131 mg/dL (Abnormal) Range: 65-99 :52 CREATININE CLEARANCE (68049) Comments: PATIENT NOT FASTINGPERFORMED BY: [facility] [place]70 [facility] [id number] Creatinine Clearance 46 mL/min (Abnormal) Range: 88-128 Comments: The above range is based on 1.73 square meter average body surfacearea. Creatinine, Ur 24hr 899.6 {mg/24_hr} (Normal) Range: 800.0-1800.0 Creatinine, Urine 34.6 mg/dL (Normal) Range: 15.0-278.0 :52 24 hour urine for Protein Comments: PATIENT NOT FASTINGPERFORMED BY: [facility] [place]70 [facility] [id number] (44969) Microalb/Creat Ratio 695.4 {mg/g_creat} (Abnormal) Range: 0.0-30.0 Microalbumin, Urine 240.6 ug/mL (Abnormal) Range: 0.0-17.0 :13 HgA1C , Office (18884) HgA1C , Office 6.3 % (Normal) Range: 4.6 - 7.1 :01 Blood Glucose , Office (13947) Blood Glucose , Office 162 (Normal) :02 Microscopic Examination Comments: PATIENT NOT FASTINGPERFORMED BY: [employer] [facility] [id number] Bacteria Few (Normal) Mucus Threads Present (Normal) Epithelial Cells (non renal) 0-10 {/hpf} (Normal) Range: 0 - 10 RBC 0-3 {/hpf} (Normal) Range: 0 - 3 WBC 0-5 {/hpf} (Normal) Range: 0 - 5 51-Mip-583924:43 ABDOMEN/PELVIS WITH CONTRAST Radiology Report See Note Comments: PROCEDURE: CT ABDOMEN AND PELVIS WITH CONTRAST REASON FOR EXAM: Female, 72 years old. Follow-up for renal mass. RADIATION DOSAGE (If Supplied By Facility): CTDIvol = ( 14.18 ) mGy, DLP=( 1365.07 ) (Normal) mGycm TECHNIQUE: Transaxial images were obtained from the dome of thediaphragmto the symphysis pubis with oral contrast. 100ml ml of Isovue 300contrastwas administered. Multiplanar coronal and sagit claudia images werereformatted. Delayed imaging was obtained as well. COMPARISON: Comparison is made with prior study dated November 05, 2011. FINDINGS:The visualized lung bases are unremarkable. Coronary arterycalcification. Stable hepatic cysts. Minimal central intrahepatic delayed ductaldilatation. This is unchanged. The patient is status postcholecystectomy. Nor mal spleen. There is an 8mm rami calcification intheregion of the splenic hilum. 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 There are pancreatic calcifications are seen and areunchan ged. Normal bilateral adrenal glands. Stable small cysts are seen in the right kidney. The largest measures 1cmand is in the lower pole. Stable left renal cyst. There is a small hiatal hernia. Normal small intestine. There aremultiple colonic diverticula consistent with diverticulosis. The patientis status post appendectomy. There is diffuse atherosclerotic calcification of the abdominal aorta an dits major visceral branches, without a demonstrated aneurysm. Normalinferior vena cava. Normal retroperitoneum. Normal urinary bladder. Normal abdominal wall. There are diffuse degenerative changes of thevisualized lumbar spine. The patient is status post interpedicular screwfixation at the L3, L4, L4, L5 levels. IMPRESSION:Stable hepatic and renal cysts.There h as been no change since prior study. Signed:Misael Hebert M.D.October 19, 2012 at 2:42:14 PM [phone] Signed GP/GP If you are the referring physician and would like to consult [facility] theradiologist who provided this interpretation, please contact Yasmany Pond at [phone]. If this radiologist is unavailable, youwill be directed to another radiologist to assist. If y ou are a patient with a question regarding this report, pleasecontactyour referring physician directly. Professional Interpretation Provided By: [employer], Phone , These documents contain legally protected and confidential healthinformation intended only for the use of the individual or entity namedabove. If you are not the intended recipient, you are hereby notifiedtha reji disclosure, copying, distribution, or other use of these documents isstrictly prohibited. If you have received this information in error,pleasenotify the sender immediately and arrange for the retu rn or destructionofthese documents. Dictated on 10/19/12 1442 by Linda Hebert MDscribed on 10/19/12 1443 by ITS IMPORTSign by Misael Hebert MD on 10/19/12 1444 Sign by: Misael Hebert MD 86-Byp-858268:59 TSH (18933) Comments: PATIENT WAS FASTINGPERFORMED BY: [employer] Kdzpvp5642 [facility] [id number] TSH 1.230 {uIU/mL} (Normal) Range: 0.450-4.500 74-Wsi-672311:59 LIPID PANEL (93086) Comments: PATIENT WAS FASTINGPERFORMED BY: [employer] Buywgt5631 [facility] [id number] LDL/HDL Ratio 0.5 {ratio_units} (Normal) Range: 0.0-3.2 LDL Cholesterol Calc 47 mg/dL (Normal) Range: 0-99 Cholesterol, Total 149 mg/dL (Normal) Range: 100-199 HDL Cholesterol 91 mg/dL (Normal) Comments: According to ATP-III Guidelines, HDL-C >59 mg/dL is considered anegative risk factor for CHD. Triglycerides 57 mg/dL (Normal) Range: 0-149 VLDL Cholesterol Cesar 11 mg/dL (Normal) Range: 5-40 63-Ahf-727950:02 URINALYSIS, W/ MICRO Comments: PATIENT NOT FASTINGPERFORMED BY: [facility]Henry [facility]6370 [facility] [id number] Information: [id number] (40171) Microscopic Examination See below: (Normal) Nitrite, Urine Negative (Normal) Bilirubin Negative (Normal) Urobilinogen,Semi-Qn 0.2 mg/dL (Normal) Range: 0.0-1.9 Occult Blood Negative (Normal) Ketones Negative (Normal) Glucose Negative (Normal) Protein 3+ (Abnormal) WBC Esterase Negative (Normal) Appearance Clear (Normal) Urine-Color Yellow (Normal) pH 5.5 (Normal) Range: 5.0-7.5 Specific [place] 1.015 (Normal) Range: 1.005-1.030 00-Qmg-660553:59 CBC WITH MANUAL DIFF Comments: PATIENT WAS FASTINGPERFORMED BY: LabCoSaint Michael's Medical CenterYviiow6227 [facility] [id number] Information: [id number] (62683) Immature Grans (Abs) 0.0 {x10E3/uL} (Normal) Range: 0.0-0.1 Immature Granulocytes 0 % (Normal) Range: 0-2 Baso (Absolute) 0.1 {x10E3/uL} (Normal) Range: 0.0-0.2 Eos (Absolute) 0.1 {x10E3/uL} (Normal) Range: 0.0-0.4 Monocytes(Absolute) 0.5 {x10E3/uL} (Normal) Range: 0.1-0.9 Lymphs (Absolute) 1.1 {x10E3/uL} (Normal) Range: 0.7-3.1 Neutrophils (Absolute) 3.1 {x10E3/uL} (Normal) Range: 1.4-7.0 Basos 1 % (Normal) Range: 0-3 Eos 2 % (Normal) Range: 0-5 Lymphs 22 % (Normal) Range: 14-46 Monocytes 11 % (Normal) Range: 4-12 Neutrophils 64 % (Normal) Range: 40-74 Platelets 164 {x10E3/uL} (Normal) Range: 155-379 RDW 14.1 % (Normal) Range: 12.3-15.4 MCHC 33.1 g/dL (Normal) Range: 31.5-35.7 MCH 28.9 pg (Normal) Range: 26.6-33.0 MCV 87 fL (Normal) Range: 79-97 Hematocrit 43.8 % (Normal) Range: 34.0-46.6 Hemoglobin 14.5 g/dL (Normal) Range: 11.1-15.9 RBC 5.01 {x10E6/uL} (Normal) Range: 3.77-5.28 WBC 4.8 {x10E3/uL} (Normal) Range: 3.4-10.8 36-Vbl-441954:59 METABOLIC PANEL, COMPREHENSIVE Comments: PATIENT WAS FASTINGPERFORMED BY: LabCoSaint Michael's Medical CenterCswoxa6743 [facility] [id number] (01961) ALT (SGPT) 14 [iU]/L (Normal) Range: 0-32 AST (SGOT) 20 [iU]/L (Normal) Range: 0-40 Alkaline Phosphatase, S 75 [iU]/L (Normal) Range: 45-108 Comments: Effective February 05, 2013 the reference interval for Alkaline Phosphatase, S will be changing to: Age Male Female 0 - 1 day 45 - 111 45 - 111 2 - 5 days 46 - 119 46 - 119 6 - 10 days 48 - 229 48 - 229 11 - 3 0 days 59 - 414 59 - 414 1 - 6 months 91 - 445 91 - 445 7 - 12 months 124 - 341 124 - 341 1 - 3 years 130 - 317 130 - 317 4 - 6 years 133 - 309 133 - 309 7 - 12 years 134 - 349 134 - 349 13 years 143 - 396 68 - 209 14 years 107 - 340 62 - 149 15 years 84 - 254 54 - 121 16 years 71 - 186 49 - 108 17 years 61 - 146 45 - 101 18 years 56 - 127 43 - 101 >18 years 39 - 117 39 - 117 Bilirubin, Total 0.3 mg/dL (Normal) Range: 0.0-1.2 A/G Ratio 1.6 (Normal) Range: 1.1-2.5 Globulin, Total 2.4 g/dL (Normal) Range: 1.5-4.5 Albumin, Serum 3.9 g/dL (Normal) Range: 3.5-4.8 Protein, Total, Serum 6.3 g/dL (Normal) Range: 6.0-8.5 Calcium, Serum 10.2 mg/dL (Normal) Range: 8.6-10.2 Carbon Dioxide, Total 22 mmol/L (Normal) Range: 19-28 Chloride, Serum 103 mmol/L (Normal) Range: 97-108 Potassium, Serum 4.4 mmol/L (Normal) Range: 3.5-5.2 Sodium, Serum 139 mmol/L (Normal) Range: 134-144 BUN/Creatinine Ratio 31 (Abnormal) Range: 11-26 eGFR If Africn Am 47 mL/min/1.73 (Abnormal) eGFR If NonAfricn Am 41 mL/min/1.73 (Abnormal) Creatinine, Serum 1.29 mg/dL (Abnormal) Range: 0.57-1.00 BUN 40 mg/dL (Abnormal) Range: 8-27 Glucose, Serum 104 mg/dL (Abnormal) Range: 65-99 7-Tos-285830:37 HgA1C , Office (20868) HgA1C , Office 6.0 % (Normal) Range: 4.6 - 7.1 9-Ndk-543106:31 CRE CREAT 1.3 mg/dL (Abnormal) Range: 0.6-1.0 09-Aug-20120:00 BRAIN W/WO CONTRAST Radiology Report See Note (Normal) Comments: PROCEDURE: MRI BRAIN WITH AND WITHOUT CONTRAST REASON FOR EXAM: Female, 72 years old. Follow-up of meningioma. Nointerval change in headaches. TECHNIQUE: Standardized multiplanar fat and water we ighted pulsesequences were obtained. 7 ml of Gadavist contrast material wasadministered intravenously for the contrast portion of the examination. COMPARISON: MRI dated February 02, 2012. FINDINGS:The lower right frontal enhancing extra-axial mass lesion shows noapparentinterval change in size, again measuring approximately 1.8 cm indiameter.Moderate vasogenic type edema is again seen in the right f rontal whitematter, without change. There is widening of the upper frontoparietal extra-axial spaces. Theventricles are normal in size. No acute infarction is demonstrated on the diffusion weighted ser ies.Multiple signal abnormalities are again seen in the bilateral cerebralwhite matter, suggesting mild/moderate chronic small vessel ischemicdisease. The basal ganglia and thalami appear normal. No les ion is identified in the brainstem or cerebellum. No abnormal parenchymal enhancement is identified. 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 No abnormality is identified in thepituitary, optic chiasm, or pineal . The cavernous sinuses appear normal. Expected major vascular structures at the base of the brain show patency. The visualized internal auditory canals appear normal. No acute orbital abnormality is se en. A left lens implant is again noted. There is no significant sinus mucosal disease. No lesion is identified in the calvarium or skull base. IMPRESSION:No interval change in the appearance of the righ t frontal meningioma andedema in the right frontal lobe. Findings compatible with chronic small vessel ischemic changes in thecerebral white matter. Signed:Donna Galan M.D.August 09, 2012 at 2:38:03 PM [id number] Signed PV/PV If you are the referring physician and would like to consult with theradiologist who provided this interpretation, please contact Donna Burnett M.D. at [phone]. If this radiologist is unavailable, youwillbe directed to another radiologist to assist. If you are a patient with a question regarding this report, pleasecontactyour referring physician evelyne cowan. Professional Interpretation Provided By: [employer], Phone , These documents contain legally protected and confidential healthinformation intended only for the us e of the individual or entity namedabove. If you are not the intended recipient, you are hereby notifiedthatany disclosure, copying, distribution, or other use of these documents isstrictly prohibited. If you have received this information in error,pleasenotify the sender immediately and arrange for the return or destructionofthese documents. Dictated on 08/09/12 1254 by Donna Martin MDTranscr ibed on 08/09/12 1440 by ITS IMPORTSign by Mario MANN,Donna on 08/09/12 1441 Sign by: Donna Martin MD 37-Cos-268201:31 CBC with manual diff Comments: PATIENT NOT FASTINGPERFORMED BY: [facility] Wpfcdy3922 [facility] [id number] Information: [id number] (16939) Immature Grans (Abs) 0.0 {x10E3/uL} (Normal) Range: 0.0-0.1 Immature Granulocytes 0 % (Normal) Range: 0-2 Baso (Absolute) 0.0 {x10E3/uL} (Normal) Range: 0.0-0.2 Eos (Absolute) 0.0 {x10E3/uL} (Normal) Range: 0.0-0.4 Monocytes(Absolute) 0.6 {x10E3/uL} (Normal) Range: 0.1-1.0 Lymphs (Absolute) 0.2 {x10E3/uL} (Abnormal) Range: 0.7-4.5 Neutrophils (Absolute) 2.3 {x10E3/uL} (Normal) Range: 1.8-7.8 Basos 0 % (Normal) Range: 0-3 Eos 0 % (Normal) Range: 0-7 Monocytes 18 % (Abnormal) Range: 4-13 Lymphs 7 % (Abnormal) Range: 14-46 Neutrophils 75 % (Abnormal) Range: 40-74 Platelets 100 {x10E3/uL} (Abnormal) Range: 140-415 RDW 13.5 % (Normal) Range: 12.3-15.4 MCHC 33.3 g/dL (Normal) Range: 31.5-35.7 MCH 29.5 pg (Normal) Range: 26.6-33.0 MCV 89 fL (Normal) Range: 79-97 Hematocrit 42.1 % (Normal) Range: 34.0-46.6 Hemoglobin 14.0 g/dL (Normal) Range: 11.1-15.9 RBC 4.74 {x10E6/uL} (Normal) Range: 3.77-5.28 WBC 3.2 {x10E3/uL} (Abnormal) Range: 4.0-10.5 :31 Metabolic Panel, Comprehensive Comments: PATIENT NOT FASTINGPERFORMED BY: [employer] [facility] HospitalSqwiggleAtrium Health [facility] [id number] ([id number]) ALT (SGPT) 19 [iU]/L (Normal) Range: 0-32 AST (SGOT) 33 [iU]/L (Normal) Range: 0-40 Alkaline Phosphatase, S 56 [iU]/L (Normal) Range: 25-165 Bilirubin, Total 0.4 mg/dL (Normal) Range: 0.0-1.2 A/G Ratio 1.7 (Normal) Range: 1.1-2.5 Globulin, Total 2.2 g/dL (Normal) Range: 1.5-4.5 Albumin, Serum 3.8 g/dL (Normal) Range: 3.5-4.8 Protein, Total, Serum 6.0 g/dL (Normal) Range: 6.0-8.5 Calcium, Serum 8.8 mg/dL (Normal) Range: 8.6-10.2 Carbon Dioxide, Total 17 mmol/L (Abnormal) Range: 20-32 Chloride, Serum 102 mmol/L (Normal) Range: 97-108 Potassium, Serum 3.8 mmol/L (Normal) Range: 3.5-5.2 Sodium, Serum 135 mmol/L (Normal) Range: 134-144 BUN/Creatinine Ratio 23 (Normal) Range: 11-26 eGFR If Africn Am 41 mL/min/1.73 (Abnormal) eGFR If NonAfricn Am 36 mL/min/1.73 (Abnormal) Creatinine, Serum 1.45 mg/dL (Abnormal) Range: 0.57-1.00 BUN 34 mg/dL (Abnormal) Range: 8-27 Glucose, Serum 137 mg/dL (Abnormal) Range: 65-99 :31 LIPID PANEL (99948) Comments: PATIENT WAS FASTINGPERFORMED BY: [employer] [id number] LDL/HDL Ratio 0.8 {ratio_units} (Normal) Range: 0.0-3.2 LDL Cholesterol Calc 61 mg/dL (Normal) Range: 0-99 VLDL Cholesterol Cesar 16 mg/dL (Normal) Range: 5-40 HDL Cholesterol 73 mg/dL (Normal) Comments: According to ATP-III Guidelines, HDL-C >59 mg/dL is considered anegative risk factor for CHD. Triglycerides 79 mg/dL (Normal) Range: 0-149 Cholesterol, Total 150 mg/dL (Normal) Range: 100-199 04-Oct-20128:31 CBC WITH MANUAL DIFF Comments: PATIENT WAS FASTINGPERFORMED BY: LabCoSaint Michael's Medical CenterGtmnha0383 [facility] [id number] Information: [id number] (19117) Immature Grans (Abs) 0.0 {x10E3/uL} (Normal) Range: 0.0-0.1 Immature Granulocytes 0 % (Normal) Range: 0-2 Baso (Absolute) 0.1 {x10E3/uL} (Normal) Range: 0.0-0.2 Eos (Absolute) 0.1 {x10E3/uL} (Normal) Range: 0.0-0.4 Monocytes(Absolute) 0.4 {x10E3/uL} (Normal) Range: 0.1-1.0 Lymphs (Absolute) 0.8 {x10E3/uL} (Normal) Range: 0.7-4.5 Neutrophils (Absolute) 1.8 {x10E3/uL} (Normal) Range: 1.8-7.8 Basos 2 % (Normal) Range: 0-3 Eos 3 % (Normal) Range: 0-7 Monocytes 13 % (Normal) Range: 4-13 Lymphs 25 % (Normal) Range: 14-46 Neutrophils 57 % (Normal) Range: 40-74 Platelets 129 {x10E3/uL} (Abnormal) Range: 140-415 RDW 13.8 % (Normal) Range: 12.3-15.4 MCHC 33.2 g/dL (Normal) Range: 31.5-35.7 MCH 29.4 pg (Normal) Range: 26.6-33.0 MCV 88 fL (Normal) Range: 79-97 Hematocrit 37.0 % (Normal) Range: 34.0-46.6 Hemoglobin 12.3 g/dL (Normal) Range: 11.1-15.9 RBC 4.19 {x10E6/uL} (Normal) Range: 3.77-5.28 WBC 3.2 {x10E3/uL} (Abnormal) Range: 4.0-10.5 :31 METABOLIC PANEL, COMPREHENSIVE Comments: PATIENT WAS FASTINGPERFORMED BY: [facility]Saint [facility] CenterYdjimi1855 [facility] [id number] ([id number]) ALT (SGPT) 22 [iU]/L (Normal) Range: 0-32 AST (SGOT) 30 [iU]/L (Normal) Range: 0-40 Alkaline Phosphatase, S 74 [iU]/L (Normal) Range: 25-165 Bilirubin, Total 0.2 mg/dL (Normal) Range: 0.0-1.2 A/G Ratio 2.2 (Normal) Range: 1.1-2.5 Globulin, Total 1.8 g/dL (Normal) Range: 1.5-4.5 Albumin, Serum 3.9 g/dL (Normal) Range: 3.5-4.8 Protein, Total, Serum 5.7 g/dL (Abnormal) Range: 6.0-8.5 Calcium, Serum 9.5 mg/dL (Normal) Range: 8.6-10.2 Carbon Dioxide, Total 25 mmol/L (Normal) Range: 19-28 Chloride, Serum 103 mmol/L (Normal) Range: 97-108 Potassium, Serum 4.2 mmol/L (Normal) Range: 3.5-5.2 Sodium, Serum 143 mmol/L (Normal) Range: 134-144 BUN/Creatinine Ratio 18 (Normal) Range: 11-26 eGFR If Africn Am 53 mL/min/1.73 (Abnormal) eGFR If NonAfricn Am 46 mL/min/1.73 (Abnormal) Creatinine, Serum 1.18 mg/dL (Abnormal) Range: 0.57-1.00 BUN 21 mg/dL (Normal) Range: 8-27 Glucose, Serum 136 mg/dL (Abnormal) Range: 65-99 :45 HgA1C , Office (01029) HgA1C , Office 6.1 % (Normal) Range: 4.6 - 7.1 03-Xon-430149:16 CRE CREAT 1.1 mg/dL (Abnormal) Range: 0.6-1.0 60-Paj-97729:00 BRAIN W/WO CONTRAST Radiology Report See Note (Normal) Comments: PROCEDURE: MRI BRAIN WITH AND WITHOUT CONTRAST REASON FOR EXAM: Female, 71 years old. Follow-up of meningioma. TECHNIQUE: Standardized multiplanar fat and water weighted pulsesequences were obtain ed. 17 ml of Magnevist contrast material wasadministered intravenously for the contrast portion of the examination. COMPARISON: MRI dated July 27, 2011. FINDINGS:The right frontal enhancing extra-ax ial mass lesion is redemonstrated,without appreciable interval change. It again measures approximately 1.8cm in diameter and has dural attachments to the right anterior falx andthedura along the inner table of the right frontal bone. There is a mildenhancing dural tail. Moderate vasogenic type edema is again seen in theright frontal white matter, without change. The cortical sulci and ventricles ar e normal in size. There is wideningofthe cortical sulci at the vertex. No acute infarction is demonstrated on the diffusion weighted series.Multiple signal abnormalities are again seen in the bilateral cerebralwhite matter, suggesting mild/moderate chronic small vessel ischemicdisease. The basal ganglia and thalami appear normal. No lesion is identified in the brainstem or cerebellum. No abnormal par enchymal enhancement is identified. 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 No abnormality is identified in thepituitary, optic chiasm, or pineal. The cavernous sinuses appear normal. Expected major vascular structures at the base of the brain show patency. The visualized internal auditory canals appear normal. No acute orbital abnormality is seen. A left lens implant is noted. There is no significant sinu s mucosal disease. No lesion is identified in the calvarium or skull base. IMPRESSION:Stable appearance of the lower right frontal meningioma and reactiveedemain the right frontal lobe. Stable chronic s mall vessel ischemic changes in the cerebral whitematter. Signed:Donna Galan M.D.February 02, 2012 at 5:10:18 PM [id number] Signed PV/PV If you are the referring physician and w ould like to consult with theradiologist who provided this interpretation, please contact Donna Burnett M.D. at [phone]. If this radiologist is unavailable, youwillbe directed to another radiol ogist to assist. If you are a patient with a question regarding this report, pleasecontactyour referring physician directly. Professional Interpretation Provided By: Reta, Phone ,Fa x [phone] These documents contain legally protected and confidential healthinformation intended only for the use of the individual or entity namedabove. If you are not the intended recipient, you a re hereby notifiedthatany disclosure, copying, distribution, or other use of these documents isstrictly prohibited. If you have received this information in error,pleasenotify the sender immediately and arrange for the return or destructionofthese documents. Dictated on 02/02/12 1255 by Donna Martin MDTranscribed on 02/02/121712 by ITS IMPORTSign by Donna Martin MD on 02/02/121713 S ign by: Donna Martin MD 70-Bsu-242388:16 DEXA BONE DENSITY STUDY (HP) Radiology Report See Note (Normal) Comments: PROCEDURE: DUAL ENERGY X-RAY ABSORPTIOMETRY / DXA REASON FOR EXAM: Female, 71 years old, post menopausal with osteopeniaforfollow-up. TECHNIQUE: Bone Mineral Density (BMD) measurements of tracey mbar spine a ndbilateral hips were obtained. COMPARISON: None. FINDINGS: The spine is excluded for postoperative and degenerative changes. Left Femur Total: g/cm2 (0.953) / T-score (-0.4) / Z-score (1.2)Left Femoral Neck: g/cm2 (0.932) / T-score (-0.8) / Z-score (1.1)Right Femur Total: g/cm2 (0.923) / T-score (-0.7) / Z-score (1.0)Right Femoral Neck: g/cm2 (0.852) / T- score (-1.3) / Z-score (0.5) Vertebral fractur e analysis was also performed. Imaging was obtained fromT4 through L5. There are postoperative changes of the lower lumbar spineincluding laminar screws and rods. There is no evidence for fracture. When compared to the previous exams there is been no significant intervalchange in bone mineral density at either hip. IMPRESSION:The patient is considered low bone mineral density, as outlined above,accord ing to World Health Organization (WHO) criteria. Fracture risk ismoderate. Reference Information:The T-score is the number of standard deviations above or below thestandard which is normal for young vicki lts at their peak bone mineraldensity. The World Health Organization (WHO) interprets the T-scores asfollows: Above -1 Normal bone densityBetween -1 and - 2.5 OsteopeniaEqual to / or below -2.5 Osteoporo sis As a practical clinical guideline, osteopenia may be graded as follows:Mild -1 through -1.5Moderate -1.6 through -2.0Severe -2.1 through -2.4 The Z-score is the number of standard deviations above o r below age-matchedcontrols. A Z-score of less than -1.5 would be considered abnormal. References:1. NIH Osteoporosis and Related Bone Diseases http://www.osteo.org2. International Society for Clinical Densitometry http://www.iscd.org3. National Osteoporosis Foundation http://www.nof.org Signed:David Cornoel M.D.January 20, 2012 at 2:43:46 PM [id number] Signed KERA/KERA If you ar e the referring physician and would like to consult with theradiologist who provided this interpretation, please contact Yasmany Parnell at . If this radiologist is unavailable,youw ill be directed to another radiologist to assist. If you are a patient with a question regarding this report, pleasecontactyour referring physician directly. Professional Interpretation Provided By: Ra carmona, Phone , These documents contain legally protected and confidential healthinformation intended only for the use of the individual or entity namedabove. If you are not the intended recipient, you are hereby notifiedthatany disclosure, copying, distribution, or other use of these documents isstrictly prohibited. If you have received this information in error,please notify the sender immediately and arrange for the return or destructionofthese documents. Dictated on 01/20/12 1216 by David Coronel MDTranscribed on 01/20/126 by ITS IMPORTSign by David Coronel MD on 01/20/12 1447 Sign by: David Coronel MD [id number]-Vfr-[id number]:15 BILAT SCRN DIGITAL & CAD Radiology Report See Note (Normal) Comments: MAMMOGRAPHY - BILATERAL SCREENING REASON FOR EXAM: Female, 71 years old. Routine annual screeningexamination. PERTINENT HISTORY: TECHNIQUE: Digital examination. Mediolateral oblique ( MLO) andcran iocaudad (CC) views of both breasts were obtained. CAD: CAD wasperformed on this study. COMPARISON: January 2011 FINDINGS:The breast composition is composed of scattered fibroglandular densities. Ther e are no dominant masses or suspicious calcifications. No other significant abnormalities are identified. There has been nosignificant change since the prior study. IMPRESSION:Stable bilateral screenin g mammogram. Yearly follow-up recommended. (A) ASSESSMENT CATEGORY:BIRADS Category 1: Negative. A letter regarding these results will besent to the patient by the facility within 30 days. Approxima tely 10% of breast cancers are not detected by mammography. Anormal mammogram should not delay biopsy of a clinically suspiciousabnormality. Signed:David Coronel M.D.January 20, 2012 at 1:20:11 PM [id number] Signed KERA/KERA If you are the referring physician and would like to consult with theradiologist who provided this interpretation, please contact Yasmany Parnell at . If this radiologist is unavailable,youwill be directed to another radiologist to assist. If you are a patient with a question regarding this report, pleasecontactyour referring physician directly. Professional Interpretation Provided By: Apozy, Phone , These documents contain legally protected and confidential healthinformation intended only for the use of the individual or entity namedabove. If you are not the intended recipient, you are hereby notifiedthatany disclosure, copying, distribution, or other use of these documents isstrictly prohibited . If you have received this information in error,pleasenotify the sender immediately and arrange for the return or destructionofthese documents. Dictated on 01/20/12 1216 by David Coronel MDTrans cribed on 01/20/12 1323 by ITS IMPORTSign by David Coronel MD on 01/20/12 1324 Sign by: David Coronel MD [id number]-Jgv-[id number]:56 PELVIC (NON ) Radiology Report See Note (Normal) Comments: PROCEDURE: ULTRASOUND OF THE FEMALE PELVIS - COMPLETE REASON FOR EXAM: Female, 71 years old. ENDOMETRIALTHICKENING TECHNIQUE: Transabdominal TECHNICAL QUALITY: Adequat e. COMPARISO N: CT November 05, 2011 FINDINGS:The uterus is anteverted. The uterus measures 5.4 x 4.0 x 2.1 cm. Theendometrium measures 3.5 mm in thickness, and is hyperechoic. There isnodemonstrated endometrial mass. There is no demonstrated myometrial mass.Two echogenic foci probably representing calcifications are seen of thecervix/vaginal area. Neither ovary is visualized. There is no demonstrated adnexal mass orcomplex lesion. There is no fluid in the cul-de-sac. IMPRESSION:Normal demonstrated endometrial thickness.Two echogenic foci probably representing calcifications are seen of thecervix/vaginal ar ea. Signed:Radha Vuong M.D.January 10, 2012 at 8:39:09 PM [id number] Signed JL/JL If you are the referring physician and would like to consult with theradiologist who provided this inte rpretation, please contact Radha Vuong M.D. at [phone]. If this radiologist is unavailable, you will bedirected to another radiologist to assist. If you are a patient with a question regarding this r eport, pleasecontactyour referring physician directly. Professional Interpretation Provided By: Apozy, Phone , PROCEDURE: ULTRASOUND OF THE FEMALE PELVIS - COMPLETE REASON FOR EXAM: Female, 71 years old. ENDOMETRIALTHICKENING TECHNIQUE: Transvaginal TECHNICAL QUALITY: Adequate. COMPARISON: CT November 05, 2011 FINDINGS:The uterus is anteverted. The uterus measures 5.4 x 4.0 x 2.1 cm. Theendometrium measures 3.2 mm in thickness, and is hyperechoic. There isnodemonstrated endometrial mass. There is no demonstrated myometrial mass. Neither ovary is visualized. There is no demonstrated adnexal mass orcomplex lesion. There is no fluid in the cul-de-sac. IMPRESSION:Normal demonstrated endometrial thickness. Signed:Radha Vuong M.D.January 10, 2012 at 8:40:07 PM [id number] Signed JL/JOHNNY If you are the referring physician and would like to consult with theradiologist who provided this interpretation, please contact Radha Vuong M.D. at [phone]. If this radiologist is unavailable, you will bedirected to another radiologist to assist. If you are a patient with a question regarding this report, pleasecontactyour referring ph ysician directly. Professional Interpretation Provided By: Apozy, Phone , These documents contain legally protected and confidential healthinformation intended only f or the use of the individual or entity namedabove. If you are not the intended recipient, you are hereby notifiedthatany disclosure, copying, distribution, or other use of these documents isstrictly pro hibited. If you have received this information in error,pleasenotify the sender immediately and arrange for the return or destructionofthese documents. Dictated on 01/10/12 1309 by Nahum VUONG MD[facility] ribed on 01/11/12 1113 by ITS IMPORTSign by RADHA VUONG MD on 01/11/12 1114 Sign by: RADHA VUONG MD 20-Fjj-39237:35 MICROALBUMIN: CREATININE RATIO Comments: PATIENT WAS FASTINGPERFORMED BY: [facility] [facility] [id number] ([id number]) AND ([id number]) Microalb/Creat Ratio 829.4 {mg/g_creat} (Abnormal) Range: 0.0-30.0 Microalbumin, Urine 437.1 ug/mL (Abnormal) Range: 0.0-17.0 Creatinine, Urine 52.7 mg/dL (Normal) Range: 15.0-278.0 :35 CBC WITH MANUAL DIFF Comments: PATIENT WAS FASTINGPERFORMED BY: [facility] Iskwma7136 [facility] [id number] Information: [id number] ([id number]) Immature Grans (Abs) 0.0 {x10E3/uL} (Normal) Range: 0.0-0.1 Immature Granulocytes 0 % (Normal) Range: 0-2 Baso (Absolute) 0.1 {x10E3/uL} (Normal) Range: 0.0-0.2 Eos (Absolute) 0.1 {x10E3/uL} (Normal) Range: 0.0-0.4 Monocytes(Absolute) 0.4 {x10E3/uL} (Normal) Range: 0.1-1.0 Lymphs (Absolute) 1.2 {x10E3/uL} (Normal) Range: 0.7-4.5 Neutrophils (Absolute) 2.0 {x10E3/uL} (Normal) Range: 1.8-7.8 Basos 1 % (Normal) Range: 0-3 Eos 3 % (Normal) Range: 0-7 Monocytes 10 % (Normal) Range: 4-13 Lymphs 32 % (Normal) Range: 14-46 Neutrophils 54 % (Normal) Range: 40-74 Platelets 141 {x10E3/uL} (Normal) Range: 140-415 RDW 13.8 % (Normal) Range: 12.3-15.4 MCHC 33.2 g/dL (Normal) Range: 31.5-35.7 MCH 29.8 pg (Normal) Range: 26.6-33.0 MCV 90 fL (Normal) Range: 79-97 Hematocrit 39.5 % (Normal) Range: 34.0-46.6 Hemoglobin 13.1 g/dL (Normal) Range: 11.1-15.9 RBC 4.39 {x10E6/uL} (Normal) Range: 3.77-5.28 WBC 3.7 {x10E3/uL} (Abnormal) Range: 4.0-10.5 :35 METABOLIC PANEL, COMPREHENSIVE Comments: PATIENT WAS FASTINGPERFORMED BY: [employer] [id number] [facility] [id number] ([id number]) ALT (SGPT) 15 [iU]/L (Normal) Range: 0-32 AST (SGOT) 25 [iU]/L (Normal) Range: 0-40 Alkaline Phosphatase, S 68 [iU]/L (Normal) Range: 25-165 Bilirubin, Total 0.2 mg/dL (Normal) Range: 0.0-1.2 A/G Ratio 1.8 (Normal) Range: 1.1-2.5 Globulin, Total 2.1 g/dL (Normal) Range: 1.5-4.5 Albumin, Serum 3.8 g/dL (Normal) Range: 3.5-4.8 Protein, Total, Serum 5.9 g/dL (Abnormal) Range: 6.0-8.5 Calcium, Serum 9.4 mg/dL (Normal) Range: 8.6-10.2 Carbon Dioxide, Total 24 mmol/L (Normal) Range: 20-32 Chloride, Serum 105 mmol/L (Normal) Range: 97-108 Potassium, Serum 3.8 mmol/L (Normal) Range: 3.5-5.2 Sodium, Serum 143 mmol/L (Normal) Range: 134-144 BUN/Creatinine Ratio 21 (Normal) Range: 11-26 eGFR If Africn Am 66 mL/min/1.73 (Normal) eGFR If NonAfricn Am 57 mL/min/1.73 (Abnormal) Creatinine, Serum 0.98 mg/dL (Normal) Range: 0.57-1.00 BUN 21 mg/dL (Normal) Range: 8-27 Glucose, Serum 125 mg/dL (Abnormal) Range: 65-99 :35 LIPID PANEL ([id number]) Comments: PATIENT WAS FASTINGPERFORMED BY: [employer] [id number] [facility] [id number] LDL/HDL Ratio 0.9 {ratio_units} (Normal) Range: 0.0-3.2 LDL Cholesterol Calc 72 mg/dL (Normal) Range: 0-99 HDL Cholesterol 83 mg/dL (Normal) Comments: According to ATP-III Guidelines, HDL-C >59 mg/dL is considered anegative risk factor for CHD. VLDL Cholesterol Cesar 18 mg/dL (Normal) Range: 5-40 Triglycerides 90 mg/dL (Normal) Range: 0-149 Cholesterol, Total 173 mg/dL (Normal) Range: 100-199 :15 HgA1C , Office ([id number]) HgA1C , Office 6.2 % (Normal) Range: 4.6 - 7.1 :30 CBC WITH MANUAL DIFF Comments: PATIENT WAS FASTINGPERFORMED BY: [facility]Saint [facility] CenterAradlb2329 [facility] [id number] Information: [id number] ([id number]) Immature Grans (Abs) 0.0 {x10E3/uL} (Normal) Range: 0.0-0.1 Immature Granulocytes 0 % (Normal) Range: 0-2 Baso (Absolute) 0.1 {x10E3/uL} (Normal) Range: 0.0-0.2 Eos (Absolute) 0.2 {x10E3/uL} (Normal) Range: 0.0-0.4 Monocytes(Absolute) 0.3 {x10E3/uL} (Normal) Range: 0.1-1.0 Lymphs (Absolute) 1.2 {x10E3/uL} (Normal) Range: 0.7-4.5 Neutrophils (Absolute) 2.5 {x10E3/uL} (Normal) Range: 1.8-7.8 Basos 1 % (Normal) Range: 0-3 Eos 4 % (Normal) Range: 0-7 Monocytes 7 % (Normal) Range: 4-13 Lymphs 28 % (Normal) Range: 14-46 Neutrophils 60 % (Normal) Range: 40-74 Platelets 176 {x10E3/uL} (Normal) Range: 140-415 RDW 13.5 % (Normal) Range: 12.3-15.4 MCHC 32.7 g/dL (Normal) Range: 31.5-35.7 MCH 28.8 pg (Normal) Range: 26.6-33.0 MCV 88 fL (Normal) Range: 79-97 Hematocrit 40.4 % (Normal) Range: 34.0-46.6 Hemoglobin 13.2 g/dL (Normal) Range: 11.1-15.9 RBC 4.58 {x10E6/uL} (Normal) Range: 3.77-5.28 WBC 4.2 {x10E3/uL} (Normal) Range: 4.0-10.5 :30 METABOLIC PANEL, COMPREHENSIVE Comments: PATIENT WAS FASTINGPERFORMED BY: [facility] CenterOqgzqn1375 [facility] [id number] ([id number]) ALT (SGPT) 19 [iU]/L (Normal) Range: 0-40 AST (SGOT) 23 [iU]/L (Normal) Range: 0-40 Alkaline Phosphatase, S 81 [iU]/L (Normal) Range: 25-165 Bilirubin, Total 0.2 mg/dL (Normal) Range: 0.0-1.2 A/G Ratio 1.7 (Normal) Range: 1.1-2.5 Globulin, Total 2.2 g/dL (Normal) Range: 1.5-4.5 Albumin, Serum 3.8 g/dL (Normal) Range: 3.5-4.8 Protein, Total, Serum 6.0 g/dL (Normal) Range: 6.0-8.5 Calcium, Serum 9.1 mg/dL (Normal) Range: 8.6-10.2 Carbon Dioxide, Total 23 mmol/L (Normal) Range: 20-32 Chloride, Serum 104 mmol/L (Normal) Range: 97-108 Potassium, Serum 4.1 mmol/L (Normal) Range: 3.5-5.2 Sodium, Serum 141 mmol/L (Normal) Range: 134-144 BUN/Creatinine Ratio 28 (Abnormal) Range: 11-26 eGFR If Africn Am 61 mL/min/1.73 (Normal) eGFR If NonAfricn Am 53 mL/min/1.73 (Abnormal) Creatinine, Serum 1.05 mg/dL (Abnormal) Range: 0.57-1.00 BUN 29 mg/dL (Abnormal) Range: 8-27 Glucose, Serum 124 mg/dL (Abnormal) Range: 65-99 :30 LIPID PANEL ([id number]) Comments: PATIENT WAS FASTINGPERFORMED BY: [facility]CoSaint [facility] CenterOrgwps0182 [facility] [id number] LDL/HDL Ratio 0.9 {ratio_units} (Normal) Range: 0.0-3.2 LDL Cholesterol Calc 64 mg/dL (Normal) Range: 0-99 Comments: Please note reference interval change VLDL Cholesterol Cesar 16 mg/dL (Normal) Range: 5-40 HDL Cholesterol 69 mg/dL (Normal) Comments: According to ATP-III Guidelines, HDL-C >59 mg/dL is considered anegative risk factor for CHD. Triglycerides 80 mg/dL (Normal) Range: 0-149 Comments: Please note reference interval change Cholesterol, Total 149 mg/dL (Normal) Range: 100-199 Comments: Please note reference interval change 24-Brm-976044:48 Rapid Flu (73426 x 2) Influenza A Ag negative (Normal) :20 ABDOMEN W/WO IV CONTRAST Radiology Report See Note (Normal) Comments: PROCEDURE: CT ABDOMEN AND PELVIS WITH AND WITHOUT CONTRAST REASON FOR EXAM: Female, 71 years old. Follow-up for renal mass. RADIATION DOSAGE (If Supplied By Facility): CTDIvol = ( 18.43 ) mGy, DLP= ( 2581.37 ) mGycm TECHNIQUE: Transaxial images were obtained from the dome of thediaphragmto the symphysis pubis with oral contrast. 100ML ml of Isovue 300contrastwas administered. Multiplanar coron al and sagittal images werereformatted. Delayed imaging was obtained as well. COMPARISON: Comparison is made with prior study dated January 29, 2011. FINDINGS:The visualized lung bases are unremarkab le. There are atheroscleroticcalcifications of visualized coronary arteries. Small cysts are seen in the liver. The largest measures 2.5-cm and isseenin the left lobe. There is a mild degree of intr ahepatic biliary ductaldilatation. This has improved since prior study. The gallbladder is notvisualized. Normal unenhanced and enhanced spleen. Scattered pancreaticcalcifications are once again see n. Normal bilateral adrenal glands. Normal size of the right kidney. Once again, there are 5 small corticalcysts. The largest measures 9 mm and is in the lower pole. There are noright renal calculi. There is no right hydronephrosis. Normalvisualizedright ureter. Normal size of the left kidney. Several small cysts are seen in the leftkidney. There are no left renal calculi. There is no lefthydr onephrosis.Normal visualized left ureter. Normal visualized stomach. Normal small intestine. There are multiplecolonic diverticula consistent with diverticulosis. The patient isstatuspost appendectom y. There is no demonstrated peritoneal fluid. There is diffuse atherosclerotic calcification of the abdominal aorta,without a demonstrated aneurysm. Normal inferior vena cava. Normalretroperitoneum. N ormal urinary bladder. There is no pelvic mass lesion orlymphadenopathy.There is no pelvic fluid. There is thickening of the endometrium. Afocal calcification is seen along the right side of the uter us. Normal abdominal wall. The patient is status post lumbar fusion. IMPRESSION:There has been essentially no change since prior study.Several hepatic and bilateral renal cysts. Signed:Misael redmond M.D.November 05, 2011 at 3:25:08 PM [id number] Signed GP/GP If you are the referring physician and would like to consult with theradiologist who provided this interpretation, please contact Yasmany Pond at [phone]. If this radiologist is unavailable, youwill be directed to another radiologist to assist. If you are a patient with a question regarding this report, ple asecontactyour referring physician directly. Professional Interpretation Provided By: Apozy, Phone , These documents contain legally protected and confidential health information intended only for the use of the individual or entity namedabove. If you are not the intended recipient, you are hereby notifiedthatany disclosure, copying, distribution, or other use of the se documents isstrictly prohibited. If you have received this information in error,pleasenotify the sender immediately and arrange for the return or destructionofthese documents. Dictated on 11/05/11 0939 by Jody Hebert MDranscribed on 11/05/11 1551 by ITS IMPORTSign by Misael Hebert MD on 11/05/11 1552 Sign by: Singh MANN,Misael 05-Nov-20110:00 PELVIS WITH IV CONTRAST Radiology Report See Note (Normal) Comments: PROCEDURE: CT ABDOMEN AND PELVIS WITH AND WITHOUT CONTRAST REASON FOR EXAM: Female, 71 years old. Follow-up for renal mass. RADIATION DOSAGE (If Supplied By Facility): CTDIvol = ( 18.43 ) mGy, DLP= ( 2581.37 ) mGycm TECHNIQUE: Transaxial images were obtained from the dome of thediaphragmto the symphysis pubis with oral contrast. 100ML ml of Isovue 300contrastwas administered. Multiplanar coron al and sagittal images werereformatted. Delayed imaging was obtained as well. COMPARISON: Comparison is made with prior study dated January 29, 2011. FINDINGS:The visualized lung bases are unremarkab le. There are atheroscleroticcalcifications of visualized coronary arteries. Small cysts are seen in the liver. The largest measures 2.5-cm and isseenin the left lobe. There is a mild degree of intr ahepatic biliary ductaldilatation. This has improved since prior study. The gallbladder is notvisualized. Normal unenhanced and enhanced spleen. Scattered pancreaticcalcifications are once again see n. Normal bilateral adrenal glands. Normal size of the right kidney. Once again, there are 5 small corticalcysts. The largest measures 9 mm and is in the lower pole. There are noright renal calculi. There is no right hydronephrosis. Normalvisualizedright ureter. Normal size of the left kidney. Several small cysts are seen in the leftkidney. There are no left renal calculi. There is no lefthydr onephrosis.Normal visualized left ureter. Normal visualized stomach. Normal small intestine. There are multiplecolonic diverticula consistent with diverticulosis. The patient isstatuspost appendectom y. There is no demonstrated peritoneal fluid. There is diffuse atherosclerotic calcification of the abdominal aorta,without a demonstrated aneurysm. Normal inferior vena cava. Normalretroperitoneum. N ormal urinary bladder. There is no pelvic mass lesion orlymphadenopathy.There is no pelvic fluid. There is thickening of the endometrium. Afocal calcification is seen along the right side of the uter us. Normal abdominal wall. The patient is status post lumbar fusion. IMPRESSION:There has been essentially no change since prior study.Several hepatic and bilateral renal cysts. Signed:Misael redmond M.D.November 05, 2011 at 3:25:08 PM [id number] Signed GP/GP If you are the referring physician and would like to consult with theradiologist who provided this interpretation, please contact Yasmany Pond at [phone]. If this radiologist is unavailable, youwill be directed to another radiologist to assist. If you are a patient with a question regarding this report, ple asecontactyour referring physician directly. Professional Interpretation Provided By: [employer], Phone , These documents contain legally protected and confidential health information intended only for the use of the individual or entity namedabove. If you are not the intended recipient, you are hereby notifiedthatany disclosure, copying, distribution, or other use of the se documents isstrictly prohibited. If you have received this information in error,pleasenotify the sender immediately and arrange for the return or destructionofthese documents. Dictated on 11/05/11 0939 by Jody Hebert MDranscribed on 11/05/11 1551 by ITS IMPORTSign by Misael Hebert MD on 11/05/11 1552 Sign by: Misael Hebert MD [id number] METABOLIC PANEL, Comments: PATIENT WAS FASTINGPERFORMED BY: [facility]CoSaint [facility] CenterFofbem2557 [facility] [id number] Information: [id number],2ND ORDER NO DRAW F EE COMPREHENSIVE (91125) ALT (SGPT) 31 [iU]/L (Normal) Range: 0-40 AST (SGOT) 33 [iU]/L (Normal) Range: 0-40 Alkaline Phosphatase, S 89 [iU]/L (Normal) Range: 25-165 Bilirubin, Total 0.2 mg/dL (Normal) Range: 0.0-1.2 A/G Ratio 1.7 (Normal) Range: 1.1-2.5 Globulin, Total 2.3 g/dL (Normal) Range: 1.5-4.5 Albumin, Serum 4.0 g/dL (Normal) Range: 3.5-4.8 Protein, Total, Serum 6.3 g/dL (Normal) Range: 6.0-8.5 Calcium, Serum 10.0 mg/dL (Normal) Range: 8.6-10.2 Carbon Dioxide, Total 25 mmol/L (Normal) Range: 20-32 Chloride, Serum 103 mmol/L (Normal) Range: 97-108 Potassium, Serum 4.7 mmol/L (Normal) Range: 3.5-5.2 Sodium, Serum 141 mmol/L (Normal) Range: 134-144 BUN/Creatinine Ratio 30 (Abnormal) Range: 11-26 eGFR If Africn Am 56 mL/min/1.73 (Abnormal) eGFR If NonAfricn Am 48 mL/min/1.73 (Abnormal) Creatinine, Serum 1.13 mg/dL (Abnormal) Range: 0.57-1.00 BUN 34 mg/dL (Abnormal) Range: 8-27 Glucose, Serum 155 mg/dL (Abnormal) Range: 65-99 :49 Creatinine Clearance Comments: PATIENT WAS FASTINGPERFORMED BY: VEE NVC Lightingsyl EmersonOlbkam8216 [facility] [id number] Information: 10/30@6AM 10/31@730AM Creatinine Clearance 58 mL/min (Abnormal) Range: 88-128 Comments: The above range is based on 1.73 square meter average body surfacearea. Creatinine, Ur 24hr 949.7 {mg/24_hr} (Normal) Range: 800.0-1800.0 Creatinine, Urine 48.7 mg/dL (Normal) Range: 15.0-278.0 eGFR If Africn Am 55 mL/min/1.73 (Abnormal) eGFR If NonAfricn Am 48 mL/min/1.73 (Abnormal) Creatinine, Serum 1.14 mg/dL (Abnormal) Range: 0.57-1.00 :49 Protein Total, Qn, 24-Hr Comments: PATIENT WAS FASTINGPERFORMED BY: EVE AuditionBooth70 [facility] [id number] Urine Prot,24hr calculated 1023.8 {mg/24_hr} (Abnormal) Range: 30.0-150.0 Protein,Total,Urine 52.5 mg/dL (Abnormal) Range: 0.0-15.0 :04 HgA1C , Office (46852) HgA1C , Office 6.1 % (Normal) Range: 4.6 - 7.1 :58 CRE Comments: appt 09/21/11 CREAT 1.0 mg/dL (Normal) Range: 0.6-1.0 :00 BRAIN W/WO CONTRAST Radiology Report See Note (Normal) Comments: PROCEDURE: MRI BRAIN WITH AND WITHOUT CONTRAST REASON FOR EXAM: Female, 71 years old. Meningioma follow- up, headache. TECHNIQUE: Standardized multiplanar fat and water weighted pulsesequences were obtained. 16 ml of Magnevist contrast material wasadministered intravenously for the contrast portion of the examination. COMPARISON: MRI brain with and without contrast 03/02/2011. FINDINGS:Redemon stration of a dural-based, extra-axial, enhancing mass in therightparasagittal anterior cranial fossa, measuring approximately 20 x 18 x 19mm in AP, transverse and cephalocaudal dimensions, respectively . Focalregion of T1 signal hyperintensity is again noted in the anterior portionof the lesion, potentially representing area of calcification withparamagnetic effect. Margins remain well defined. The re is perilesionalwhite matter edema in the adjacent right frontal lobe, without intervalchange. Normal size of the ventricles and extra-axial spaces for the patient'jules.In addition to vasogenic edema in the right frontal lobe associated withthe patient's meningioma, there are limited number of small foci of FLAIRand T2 signal hyperintensity in the bihemispheric white matter, mostcompatible with mild chronic microvascular ischemic disease in anindividual of this age. There is no evidence for recent intracranialischemia or other cause of cytotoxic edema on diffusion weighted imaging(DWI). Small dila bull perivascular spaces in the bilateral basal ganglia, withtiny, remote lacunar- type infarct in the right thalamus. Normal flow voids within the major intracranial circulation suggestingpatency by spin echo criteria. No demonstrated enhancing intracranial abnormality, aside from rightfrontal meningioma, as described above. Normal appearance of the pituitary gland, infundibulum, optic chiasm andhypoth alamic region, within the constraints of a routine brain study.Normal tectal plate and pineal gland. Normal midbrain, klaus and medulla. Normal cerebellum. Normal basalcisterns. Trace fluid in the righ t mastoid tip. Normal visualized bilateralinternalauditory canal structures, given routine brain imaging. Left ocular lens implant. Minor chronic sinusitis. Normal visualizedextracranial soft tissue st ructures. Normal appearance of the calvariumand visualized osseous skull base structures, except for mildhyperostosisfrontalis interna primarily on the right. No significant abnormality ofthevisualized upper cervical spine. IMPRESSION:No significant interval change in size or appearance of the meningiomaalong the floor of the right intracranial fossa. Redemonstration of mild chronic microvascular isc hemic disease involvingthe supratentorial white matter, with no demonstrated recent completed askin bala event or other acute intracranial abnormality. To consult with a radiologist regarding this repor t, please call our [id number] line @ Dictated on 07/27/11 1040 by GAYE PEREZ MD RTranscribed on 07/28/11 122 by ITS IMPORTSign by GAYE PEREZ MD on 07/28/111224 Sign by: GAYE PEREZ MD 66-Rpp-[id number]:54 Vitamin D Hydroxy (34153) Comments: PATIENT WAS FASTINGPERFORMED BY: [facility] [id number] [facility] [id number] Vitamin D, 25-Hydroxy 48.8 ng/mL (Normal) Range: 30.0-100.0 Comments: Vitamin D deficiency has been defined by the [place] of[employer] and an Endocrine Society practice guideline as alevel of serum 25-OH vitamin D less than 20 ng/mL (1,2).The Endocrine Society went on to further define vitamin Dinsufficiency as a level between 21 and 29 ng/mL (2).1. IOM ([place] of [employer]). 2010. Dietary reference intakes for calcium and D. [place]: The National Academies Press.2. Mira MF, Rosette LOPEZ, Tommy SWAIN, et al. Evaluation, treatment, and prevention of vitamin D deficiency: an Endocrine Society clinical practice guideline. JCEM. 2010; 96(7):1911-30. :54 LIPID PANEL (86504) Comments: PATIENT WAS FASTINGPERFORMED BY: [employer] Tnwhzt8925 [facility] [id number] LDL/HDL Ratio 1.0 {ratio_units} (Normal) Range: 0.0-3.2 LDL Cholesterol Calc 72 mg/dL (Normal) Range: 0-99 VLDL Cholesterol Cesar 21 mg/dL (Normal) Range: 5-40 HDL Cholesterol 69 mg/dL (Normal) Comments: According to ATP-III Guidelines, HDL-C >59 mg/dL is considered anegative risk factor for CHD. Triglycerides 106 mg/dL (Normal) Range: 0-149 Cholesterol, Total 162 mg/dL (Normal) Range: 100-199 :54 CBC WITH MANUAL DIFF Comments: PATIENT WAS FASTINGPERFORMED BY: [facility] [place]8669 [facility] [id number] Information: ADD [id number] AND DRAW FEE 99 2227 (43387) Immature Grans (Abs) 0.0 {x10E3/uL} (Normal) Range: 0.0-0.1 Immature Granulocytes 0 % (Normal) Range: 0-2 Baso (Absolute) 0.1 {x10E3/uL} (Normal) Range: 0.0-0.2 Eos (Absolute) 0.2 {x10E3/uL} (Normal) Range: 0.0-0.4 Monocytes(Absolute) 0.4 {x10E3/uL} (Normal) Range: 0.1-1.0 Lymphs (Absolute) 1.1 {x10E3/uL} (Normal) Range: 0.7-4.5 Neutrophils (Absolute) 2.7 {x10E3/uL} (Normal) Range: 1.8-7.8 Basos 1 % (Normal) Range: 0-3 Eos 4 % (Normal) Range: 0-7 Monocytes 8 % (Normal) Range: 4-13 Lymphs 24 % (Normal) Range: 14-46 Neutrophils 63 % (Normal) Range: 40-74 Platelets 154 {x10E3/uL} (Normal) Range: 140-415 RDW 13.0 % (Normal) Range: 12.3-15.4 MCHC 33.9 g/dL (Normal) Range: 31.5-35.7 MCH 30.3 pg (Normal) Range: 26.6-33.0 MCV 89 fL (Normal) Range: 79-97 Hematocrit 39.5 % (Normal) Range: 34.0-46.6 Hemoglobin 13.4 g/dL (Normal) Range: 11.1-15.9 RBC 4.42 {x10E6/uL} (Normal) Range: 3.77-5.28 WBC 4.3 {x10E3/uL} (Normal) Range: 4.0-10.5 :54 METABOLIC PANEL, COMPREHENSIVE Comments: PATIENT WAS FASTINGPERFORMED BY: [facility]CoSaint [facility] CenterSuvbsz4937 [facility] [id number] ([id number]) ALT (SGPT) 48 [iU]/L (Abnormal) Range: 0-40 AST (SGOT) 44 [iU]/L (Abnormal) Range: 0-40 Alkaline Phosphatase, S 77 [iU]/L (Normal) Range: 25-165 Bilirubin, Total 0.2 mg/dL (Normal) Range: 0.0-1.2 A/G Ratio 1.7 (Normal) Range: 1.1-2.5 Globulin, Total 2.2 g/dL (Normal) Range: 1.5-4.5 Albumin, Serum 3.7 g/dL (Normal) Range: 3.5-4.8 Protein, Total, Serum 5.9 g/dL (Abnormal) Range: 6.0-8.5 Calcium, Serum 9.2 mg/dL (Normal) Range: 8.6-10.2 Carbon Dioxide, Total 25 mmol/L (Normal) Range: 20-32 Chloride, Serum 105 mmol/L (Normal) Range: 97-108 Potassium, Serum 4.6 mmol/L (Normal) Range: 3.5-5.2 Sodium, Serum 141 mmol/L (Normal) Range: 134-144 BUN/Creatinine Ratio 28 (Abnormal) Range: 11-26 eGFR If Africn Am 65 mL/min/1.73 (Normal) eGFR If NonAfricn Am 57 mL/min/1.73 (Abnormal) Creatinine, Serum 0.99 mg/dL (Normal) Range: 0.57-1.00 BUN 28 mg/dL (Abnormal) Range: 8-27 Glucose, Serum 171 mg/dL (Abnormal) Range: 65-99 :18 HgA1C , Office (08647) HgA1C , Office 6.1 % (Normal) Range: 4.6 - 7.1 :18 Blood Glucose , Office (48857) Blood Glucose , Office 103 (Normal) 01-Dmq-[id number]:00 ABDOMEN WITH AND W/O CONTRAST Radiology Report See Note (Normal) Comments: PROCEDURE: MRI ABDOMEN WITH AND WITHOUT CONTRAST REASON FOR EXAM: Female, 71 years old. Renal mass TECHNIQUE: Standardized fat and water weighted pulse sequences wereobtained in all 3 orthogonal planes, pre-and post contrastadministration.19 ml of Magnevist contrast material was administered intravenously forthecontrast portion of the examination. COMPARISON: 01/29/2011 CT scan FINDINGS:Genesis l liver size and contour without mass, infiltrating process, orabnormal signal alteration. There is a 2.4 septated cyst in the lateralsegment of the left hepatic lobe. The gallbladder is not seen. Norm al common bile duct and intrahepaticbileducts. Normal gill hepatis. Normal pancreas without enlargement or mass. There are no focal masses.Normal pancreatic duct. Normal splenic size and contour. Th ere are no masses. Normal adrenal glands. Normal right kidney size and contour. There are several subcentimeterright renal cysts. Normal perinephric space. Normal left kidney size and contour. There are several subcentimeterleftrenal cysts. In the mid pole there is a parapelvic cyst measuring 1.4-cm.Normal perinephric space. Normal caliber of the abdominal aorta. Normal retroperitoneum without abn ormally enlarged lymphadenopathy orinflammation. Normal mesentery without inflammation or adenopathy. There is no ascites. Normal abdominal wall structures with no demonstrated hernias. There is no abn ormal contrast enhancement. There is hardware noted in the lumbar spine IMPRESSION:Simple bilateral renal cysts. No enhancing renal lesions.Hepatic cyst.Nonvisualization of the gallbladder. To consult with a radiologist regarding this report, please call our [id number] line @ Dictated on 03/18/11 1715 by Keaton MANN,NadieTranscribed on 03/22/11 1401 by ITS IMPORTSign by Jeanette Hill MD on 03/22/11 1402 Sign by: Jeanette Pugh MD [id number]:29 SERUM CRE & GFR CREAT,SERUM 1.1 mg/dL (Abnormal) Range: 0.6-1.0 60-Twh-55041:00 BRAIN W/WO CONTRAST Radiology Report See Note (Normal) Comments: PROCEDURE: MRI BRAIN WITH AND WITHOUT CONTRAST REASON FOR EXAM: Female, 70 years old. History of meningioma, withpersistent headaches. TECHNIQUE: Standardized multiplanar fat and water weighted pu lsesequences were obtained. 16 ml of Magnevist contrast material wasadministered intravenously for the contrast portion of the examination. COMPARISON: MRI dated January 19, 2011. FINDINGS:The extra- axial lower right parasagittal frontal mass is again seen,without significant change, consistent with a meningioma. It measures 20x19 x 17 mm. The anterior aspect of the mass again shows an area ofhyp erintense T1 weighted signal, possibly representing calcification.Thelesion enhances uniformly and indents the adjacent frontal lobe.Vasogenicedema is again seen in the right frontal white matter third helper ior to themasswithout interval change. The cortical sulci and ventricles are normal in size for age. No acute infarction is demonstrated on the diffusion weighted series.Scattered small signal abnormali ties are again seen in the cerebral whitematter bilaterally, consistent with chronic small vessel ischemicchanges.Numerous perivascular spaces are also seen in the white matter. The basal ganglia appear normal. A small signal abnormality is againseenin the right thalamus, likely old ischemic disease. No lesion is identified in the brainstem or cerebellum. No abnormality is identified in the pituitary , optic chiasm, or pineal.The cavernous sinuses appear normal. Expected major vascular structures at the base of the brain show patency. The visualized internal auditory canals appear normal. No acute o rbital abnormality is seen. There is slight mucosal thickening in the bilateral ethmoid sinus.Slightbilateral mastoid air cell opacification is present. No lesion is identified in the calvarium or skull base. IMPRESSION:No interval change in the size of the lower right frontal meningioma orinthe edema in the adjacent right frontal lobe. No new abnormality isidentified. Mild/moderate chronic small ves veronica ischemic changes. Dictated on 03/02/11 1330 by Mario MANN,DonnaTranscribed on 03/02/11 1729 by ITS IMPORTSign by Donna Martin MD on 03/02/11 173 Sign by: Donna Martin MD [id number]-Jgn-[id number]:00 UPPER EXT. JOINT ONLY(ROUTINE) Radiology Report See Note (Normal) Comments: PROCEDURE: MRI LEFT SHOULDER REASON FOR EXAM: Female, 70 years old with shoulder pain TECHNIQUE: Standardized fat and water weighted pulse sequences wereobtained in two orthogonal planes. Sagitta l images were not provided COMPARISON: Radiograph . FINDINGS:There is high-grade bursal surface partial tearing of the supraspinatustendon anteriorly with a few intact articular surface fibers and shouldbecorrelated with the physical exam to assess for functional full- thicknesstear (image 13 series 6). There is infraspinatus and subscapularistendinosis. AC joint arthrosis is seen mildly jb rowing the subacromialspace which may be seen in patients with impingement syndrome. There isamoderate joint effusion with mild synovitis. Subcortical cysts are seenwithin the greater tuberosity. Nor mal teres minor tendon. Normal supraspinatus muscle. Normal infraspinatus muscle. Normalsubscapularis muscle. Normal teres minor muscle. Normal glenohumeral articulation. Normal biceps labral comple x. Normalintracapsular long biceps tendon. Normal rotator interval. Normal labrum. Normal capsulo-ligamentous complex. Normal visualized coracohumeral and coracoacromial ligaments. Normal quadrilater al space. Normal axillary space. Normal deltoid muscle. Normal trapezius muscle. IMPRESSION:There is high-grade bursal surface partial tearing of the supraspinatustendon anteriorly with a few intact a rticular surface fibers and shouldbecorrelated with the physical exam to assess for functional full-thicknesstear (image 13 series 6). There is infraspinatus and subscapularis tendinosis. AC joint arthr osis is seen mildly narrowing the subacromial space whichmaybe seen in patients with impingement syndrome. There is a moderate joint effusion with mild synovitis. Dictated on 03/02/11 1243 by Ankur DuncanTranscribed on 03/04/11 1034 by ITS IMPORTSign by Ankur Duncan on 03/04/11 103 Sign by: Ankur Duncan [id number] SHOULDER,MIN 2 VIEWS Radiology Report See Note (Normal) Comments: PROCEDURE: X-RAY - LEFT SHOULDER REASON FOR EXAM: Female, 70 years old. Injury. Pain. Limited rangeofmotion TECHNIQUE: Five views of the shoulder. COMPARISON: None. FINDINGS:Normal glenohumer al articulation. There is minimal widening of the ACjoint suggesting a Type I acromioclavicular joint separation. Normalacromion. There is a Hill-Sachs defect of the proximal humerus. Normal visualiz edscapula. There is no demonstrated soft tissue abnormality. Normal visualized pulmonary apex. IMPRESSION:Type I acromioclavicular joint separation.Hill-Sachs defect of the proximal humerus . Dictate d on 02/17/11 1107 by Serge Pugh MDranscribed on 02/17/11 1205 by ITS IMPORTSign by Jeanette Pugh MD on 02/17/11 120 Sign by: Jeanette Pugh MD :45 CHEST WITH CONTRAST Radiology Report See Note (Normal) Comments: PROCEDURE: CT CHEST WITH CONTRAST REASON FOR EXAM: Female, 70 years old. Meningioma in brain, lookingforpossible primary. TECHNIQUE: High resolution transaxial imaging was performed followingintra venous administration of 100 ml of Isovue 250 contrast material. COMPARISON: None. FINDINGS:The lungs are normal. There is no demonstrated pleural abnormality. Normal heart and pericardium. Normal me diastinum. Normal hilar regions. Normal enhancement of thepulmonary arteries. Calcified plaque is seen throughout the aortic arch. Moderate end plate spondylosis is seen throughout the dorsal spine. T here is limited visualization of the liver, spleen, pancreas, adrenalglands, and abdominal aorta without a demonstrated abnormality. IMPRESSION:No evidence of lung tumor. Arteriosclerotic vascular disea se of aorta. End plate spondylosis throughout the dorsal spine. No infiltrate, atelectasis, effusion or pneumothorax. Dictated on 01/29/11 0759 by Aakash Barbosa MDTranscribed on 01/29/111714 by IT S IMPORTSign by Aakash Barbosa MD on 01/29/111715 Sign by: Aakash Barbosa MD :44 ABDOMEN/PELVIS WITH CONTRAST Radiology Report See Note (Normal) Comments: PROCEDURE: CT ABDOMEN AND PELVIS WITH CONTRAST REASON FOR EXAM: Female, 70 years old. Brain tumor. Looking forprimarycancer. TECHNIQUE: Transaxial images were obtained from the dome of thediaphra gmto the symphysis pubis without oral contrast. 100 ml of Isovue 300contrast was administered. Delayed axial images were obtained.Multiplanar coronal and sagittal images were reformatted. COMPARISON: None. FINDINGS:The visualized lung bases are unremarkable. The heart is not enlargedandthere is no pericardial effusion. There are atheroscleroticcalcificationsof visualized coronary arteries. Ther e are 3 small cysts in the right lobe of the liver ranging in sizefrom3 to 5 mm. A larger, slightly lobulated cyst is seen in the lateralsegmentof the left lobe of the liver that measures 1.6 x 2.7 cm. It has CTattenuation values of 13 Hounsfield units consistent with water density.The gallbladder is not visualized. It is presumed surgically absent.There is moderate intra-and extrahepatic bile duct dilatation the commonbile duct measures 11 mm in diameter. The dilatation extends all the waydown to the level of the duodenum. No intraluminal calculus is seen.Normal enhanced spleen. There are ildefonso ral small peripheral parenchymalcalcifications of the pancreas, one in the body and the other is in thehead and uncinate process. The pancreatic duct are not dilated. Nofocalpancreatic mass is seen. N ormal bilateral adrenal glands. Normal size of the right kidney. There are 5 small cortical cystspresent.They range in size from 3 to 9 mm in size. The largest, 9 mm, lesion isseen off the lower pole and is hyperdense with CT attenuation value of 54Hounsfield units which does not change on the delayed images. There arenoright renal calculi. There is no right hydronephrosis. Normalvisualizedright ureter. Normal size of the left kidney. There are 7 small masses in the leftkidney, most of which have the appearance of cysts. They range in sizefrom 3 mm up to the largest cyst seen centrally at 1.5 cm in diameter. A1cm lesion in the upper pole is hyperdense with CT attenuation value ofapproximately 50 Hounsfield units. It does not change on the delayedimages. There is a small, 7-mm enhancing l esion of the lateral margin ofthe midportion. CT attenuation value is 94 Hounsfield units that thendecreases to 46 Hounsfield units on delayed images. There are no leftrenal calculi. There is no left hydronephrosis. Normal visualized leftureter. Normal visualized stomach. Normal small intestine. There are multiplecolonic diverticula consistent with diverticulosis. There isnon-visualization of t he appendix. There is no demonstrated peritoneal fluid. There is diffuse atherosclerotic calcification of the abdominal aorta,without a demonstrated aneurysm. Normal inferior vena cava. Normalretroper itoneum. Normal urinary bladder. The uterus and ovaries are atrophic. Smallcalcifications are seen in the right ovary. There are also smallcalcifications the left ovary which also contains a 1 cm cys t. There isnopelvic mass lesion or lymphadenopathy. There is no pelvic fluid. Normal abdominal wall. Generalized osseous demineralization. Extensivepostoperative changes are seen in the lower lumbar spine with fixationplates and screws as well as laminectomies from L3 to L5. There isadvanced degenerative disk disease at the L5 -- S1 level. Surgicaldefectsare seen of the medial aspect of the left iliac bone as sites for bonegrafts. No focal lytic lesions are seen. IMPRESSION:1. Hepatic cysts. 2. Status post cholecystectomy. There is dilatation of the intra-andextra panic bile ducts and is p robably related to remote cholecystectomy. 3. Small bilateral renal cysts. Each kidney has a hyperdense cyst. Inaddition there is a small mass of the lateral margin of the left kidneythat is suspicio us for very early neoplasm. It is 7 mm in size. 4. Several small benign appearing nonspecific calcifications of thepancreatic parenchyma. 5. Diverticulosis of colon. The appendix is not seen. 6. At herosclerosis. No aneurysm. 7. Small postmenopausal left ovarian cyst. 8. Osteopenia. Extensive postoperative and degenerative changes of thelower lumbar spine as described above. Dictated on 01/03 0759 by ALEJANDRO DRUMMOND DOTranscribed on 02/01/11 1020 by ITS IMPORTSign by ALEJANDRO DRUMMOND DO on 02/01/11 1021 Sign by: ALEJANDRO DRUMMOND DO [id number] SINUS/FACIAL BONE Radiology Report See Note (Normal) Comments: PROCEDURE: CT MAXILLOFACIAL SINUSES REASON FOR EXAM: Female, 70 years old. The patient presented with ahistory of sinusitis and headache. TECHNIQUE: The patient was scanned in a multi detector CT scanner.Highresolution axial imaging was performed without the administration ofintravenous contrast material. Sagittal and coronal images werereconstructed. COMPARISON: None. FINDINGS:There is a 1. 4 cm x 1.6 cm rounded calcific density seen in the inferiormid aspect of the right frontal lobe. Correlation with an enhanced CTscanof the brain is suggested. FRONTAL SINUSES: Normal aeration, without mucosal inflammatory disease. ETHMOIDAL SINUSES: There is minimal mucosal thickening of the ethmoidsinuses. MAXILLARY SINUSES: Normal aeration, without mucosal inflammatorydisease. SPHENOIDAL SINUSES : Normal aeration, without mucosal inflammatorydisease. There is patency of the bilateral maxillary infundibuli with normaluncinate processes, ethmoid bullae, and hiatus semilunaris. Normal bilateral m iddle turbinates. Normal bilateral inferiorturbinates.There is a left sided nasal septal deviation, but without a nasal septalspur. There is patency of the bilateral nasal airways. The visualized osse ous structures are normal. The visualized bilateralorbital contents are normal. IMPRESSION:Calcific density is seen in the medial anterior aspect of the rightfrontallobe. A dedicated CT scan of brain with and without intravenous contrastministration is suggested. Dictated on 01/19/11 1334 by Singh MANN,GabrieleTranscribed on 01/19/11 1447 by ITS IMPORTSign by Misael Hebert MD on 01/19/11 1448 Sign by: Singh MANNMisael 98-Uku-35331:00 BRAIN W/WO CONTRAST Radiology Report See Note (Normal) Comments: PROCEDURE: MRI BRAIN WITH AND WITHOUT CONTRAST REASON FOR EXAM: Female, 70 years old. Headache with abnormal CT. TECHNIQUE: Standardized multiplanar fat and water weighted pulsesequences were obta ined. 18ml of Magnevist contrast material wasadministered intravenously for the contrast portion of the examination. COMPARISON: CT brain with and without contrast 01/19/2011. FINDINGS:Rounded mass i s present in the right parasagittal inferior frontal lobe,with a broad dural base anteriorly, demonstrating slight T1 hypointensitywith FLAIR and T2 signal hyperintensity and prominent, fairly homogeneo uscontrast enhancement. In addition, there is a small region of [id number] along the anterior margin of the mass, suggesting potentiallipomatous element, in light of low attenuation in this l ocation on therecent CT study. This corresponds in location to the peripherallycalcified, enhancing mass evident on the recent brain CT study. Thelesionmeasures approximately 19 x 17 to 20 mm in AP, t ransverse andcephalocaudaldimensions, respectively. There is localized enhancement along theadjacent dura suggesting a small dural tail. Borders are sharplymarginated. There is adjacent perilesiona l vasogenic edema involving theright frontal white matter, with local mass effect with sulcaleffacement.There is no substantial ventricular effacement or evidence of midlineshift. Appearance suggests a n extra-axial mass, likely a slightlyatypicalmeningioma, given T2 signal hyperintensity, lipomatous component andassociated vasogenic edema. Alternatively, solitary dural metastaseswouldbe a considerat ion in the appropriate clinical context. No additional demonstrated enhancing intracranial abnormality. There are limited number of small foci of FLAIR and T2 signalhyperintensity in the bihemispheric w erta matter, most compatible withmildchronic microvascular ischemic disease in an individual of this age. Nodemonstrated restricted diffusion. Ventricles are normal in size for the patient's age. Mild prominence ofcerebral sulci, compatible with mild cortical atrophy. No demonstrated localized extra-axial fluid collection. Normal flow voids within the major intracranial circulation suggestingpatency by spin echo criteria. Normal appearance of the pituitary gland, infundibulum, optic chiasm andhypothalamic region, within the constraints of a routine brain study.Normal tectal plate and pineal gland. Normal midbrain, klaus and medulla. Normal cerebellum. Normal basalcisterns. Minimal fluid in the bilateral mastoid tips. Normal visualized bilateralinternal auditory canal structures, given routine b rain imaging. Left ocular lens implant, with otherwise normal visualized orbitalcontents. No substantial mucosal inflammatory disease of the paranasal sinuses. Mild hyperostosis frontalis interna primar lisbeth on the right, withotherwisenormal calvarium and visualized osseous skull base structures. Normal visualized extracranial soft tissue structures. Mild degenerative changes of the visualized upper cer vical spine. IMPRESSION:Enhancing right anterior cranial fossa mass with dural base andassociatedsmall dural tail, appearing extra-axial in location, with peripheralcalcification noted on the recent CT study, and with perilesionalvasogenicedema and local mass effect, as described above. 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 Other etiologies,including a solitary d ural metastasis, are considered less likely.Consider further assessment with MR spectroscopy, if available. Mild chronic microvascular ischemic changes involving the supratentorialwhite matter, with mil d cortical atrophy. N.B. : The above information has been verbally conveyed by Gaye Goodwin M.D. to Chaparrita Albrecht DO, Referring Physician, on 01/19/2011 16:48:58 (ET). Dictated on 01/19/113 by GAYE PLUMMER MD RTranscribed on 01/19/111649 by ITS IMPORTSign by GAYE PEREZ MD on 01/19/111650 Sign by: GAYE PEREZ MD 84-Ohx-40050:00 BRAIN/HEAD W/WO CONTRAST Radiology Report See Note (Normal) Comments: PROCEDURE: CT BRAIN WITH AND WITHOUT CONTRAST REASON FOR EXAM: Female, 70 years old. The patient presented withheadaches. TECHNIQUE: Transaxial CT imaging of the brain was performed pr e andpostcon trast administration. The examination was performed with intravenousadministration of 50 ml of Isovue 370 contrast material. COMPARISON: None. FINDINGS:There is a 1.8 cm x 1.7 cm enhancing mass in th e inferior anterior aspectof the right frontal lobe. On the unenhanced study, there is evidence ofrim calcification. This abuts the cerebral falls. There is evidence ofsurrounding edema in the adjacen t right frontal lobe. Findings aresuggestive of a meningioma. Normal size of the ventricles and extra-axial spaces for the patient'jules.Normal white matter tracts of the supratentorial brain. Normal ba trey ganglia. Normal bilateral thalami. There are vascular calcifications of the carotid arteries. There is noenhancing intra-axial or extra-axial abnormality. There is no demonstrated extra-axial hem orrhage. There is nodemonstratedintraparenchymal hemorrhage. Normal brainstem. Normal cerebellum. Normal basal cisterns. Normal soft tissue structures. Normal calvarium. Normal sella turcica. Normal skull base. Normal visualized orbital structures. Normal visualized paranasalsinuses. IMPRESSION:Enhancing lesion in the medial inferior aspect of the right frontal lobe.This is suggestive of a mening ioma. There is evidence of surroundingedema. Dictated on 01/19/11 1347 by Elba Hebert MDeleTranscribed on 01/19/11 1446 by ITS IMPORTSign by Misael Hebert MD on 01/19/11 1447 Sign by: Misael Hebert MD 20-Cza-021680:08 [facility] Report See Note (Normal) Comments: MAMMOGRAPHY - BILATERAL SCREENING REASON FOR EXAM: Female, 70 years old. Routine annual screeningexamination. PERTINENT HISTORY: Non-contributory. TECHNIQUE: Digital examination. Med iolateral ob lique (MLO) andcraniocaudad (CC) views of both breasts were obtained. CAD: CAD wasperformed on this study. COMPARISON: Comparison is made with prior study dated December. FINDINGS:The breast composition is composed of scattered fibroglandular densities. There are no masses or suspicious microcalcifications. No other significant abnormalities are identified. There has been nosignificant rachna nge since the prior study. IMPRESSION:Normal bilateral screening mammogram. One year follow-up recommended. (A) ASSESSMENT CATEGORY:BIRADS Category 2: Benign finding(s). A letter regarding these resu ltswill be sent to the patient by the facility within 30 days. Approximately 10% of breast cancers are not detected by mammography. Anormal mammogram should not delay biopsy of a clinically suspiciousa bnormality. Dictated on 01/18/11 1317 by Jody Hebert MDranscribed on 01/19/11 0848 by ITS IMPORTSign by Misael Hebert MD on 01/19/11 0849 Sign by: Misael Hebert MD 09-Jun-20119:20 MICROALBUMIN: CREATININE RATIO Comments: PATIENT NOT FASTINGPERFORMED BY: [facility] [id number] [facility] [id number] ([id number]) AND (32184) Microalb/Creat Ratio 1028.4 {mg/g_creat} (Abnormal) Range: 0.0-30.0 Microalbumin, Urine 1341.0 ug/mL (Abnormal) Range: 0.0-17.0 Creatinine, Urine 130.4 mg/dL (Normal) Range: 15.0-278.0 :20 CBC WITH MANUAL DIFF (12862) Comments: PATIENT NOT FASTINGPERFORMED BY: [facility] Eoqacf0894 [facility] [id number] Immature Grans (Abs) 0.0 {x10E3/uL} (Normal) Range: 0.0-0.1 Immature Granulocytes 0 % (Normal) Range: 0-2 Baso (Absolute) 0.1 {x10E3/uL} (Normal) Range: 0.0-0.2 Eos (Absolute) 0.2 {x10E3/uL} (Normal) Range: 0.0-0.4 Monocytes(Absolute) 0.4 {x10E3/uL} (Normal) Range: 0.1-1.0 Lymphs (Absolute) 1.1 {x10E3/uL} (Normal) Range: 0.7-4.5 Neutrophils (Absolute) 2.4 {x10E3/uL} (Normal) Range: 1.8-7.8 Basos 2 % (Normal) Range: 0-3 Eos 4 % (Normal) Range: 0-7 Monocytes 9 % (Normal) Range: 4-13 Lymphs 26 % (Normal) Range: 14-46 Neutrophils 59 % (Normal) Range: 40-74 Platelets 132 {x10E3/uL} (Abnormal) Range: 140-415 RDW 13.4 % (Normal) Range: 11.7-15.0 MCHC 33.0 g/dL (Normal) Range: 32.0-36.0 MCH 29.2 pg (Normal) Range: 27.0-34.0 MCV 88 fL (Normal) Range: 80-98 Hematocrit 40.3 % (Normal) Range: 34.0-44.0 Hemoglobin 13.3 g/dL (Normal) Range: 11.5-15.0 RBC 4.56 {x10E6/uL} (Normal) Range: 3.80-5.10 WBC 4.1 {x10E3/uL} (Normal) Range: 4.0-10.5 :20 LIPID PANEL (47392) Comments: PATIENT NOT FASTINGPERFORMED BY: NVC LightingSaint Michael's Medical CenterVwbfud6869 [facility] [id number] LDL/HDL Ratio 0.9 {ratio_units} (Normal) Range: 0.0-3.2 LDL Cholesterol Calc 58 mg/dL (Normal) Range: 0-99 VLDL Cholesterol Cesar 23 mg/dL (Normal) Range: 5-40 HDL Cholesterol 62 mg/dL (Normal) Comments: According to ATP-III Guidelines, HDL-C >59 mg/dL is considered anegative risk factor for CHD. Triglycerides 116 mg/dL (Normal) Range: 0-149 Cholesterol, Total 143 mg/dL (Normal) Range: 100-199 :20 METABOLIC PANEL, COMPREHENSIVE Comments: PATIENT NOT FASTINGPERFORMED BY: NVC LightingSaint Michael's Medical CenterTyuymc2191 [facility] [id number] ([id number]) ALT (SGPT) 28 [iU]/L (Normal) Range: 0-40 AST (SGOT) 31 [iU]/L (Normal) Range: 0-40 Alkaline Phosphatase, S 56 [iU]/L (Normal) Range: 25-165 Bilirubin, Total 0.3 mg/dL (Normal) Range: 0.0-1.2 A/G Ratio 2.0 (Normal) Range: 1.1-2.5 Globulin, Total 2.0 g/dL (Normal) Range: 1.5-4.5 Albumin, Serum 3.9 g/dL (Normal) Range: 3.5-4.8 Protein, Total, Serum 5.9 g/dL (Abnormal) Range: 6.0-8.5 Calcium, Serum 9.6 mg/dL (Normal) Range: 8.6-10.2 Carbon Dioxide, Total 26 mmol/L (Normal) Range: 20-32 Chloride, Serum 102 mmol/L (Normal) Range: 97-108 Potassium, Serum 3.9 mmol/L (Normal) Range: 3.5-5.2 Sodium, Serum 141 mmol/L (Normal) Range: 134-144 BUN/Creatinine Ratio 17 (Normal) Range: 11-26 eGFR If Africn Am 58 mL/min/1.73 (Abnormal) Comments: Note: A persistent eGFR <60 mL/min/1.73 m2 (3 months or more) mayindicate chronic kidney disease. An eGFR >59 mL/min/1.73 m2 with anelevated urine protein also may indicate chronic kidney disease.Calculated using CKD-EPI formula. eGFR If NonAfricn Am 50 mL/min/1.73 (Abnormal) Creatinine, Serum 1.09 mg/dL (Abnormal) Range: 0.57-1.00 BUN 18 mg/dL (Normal) Range: 8-27 Glucose, Serum 113 mg/dL (Abnormal) Range: 65-99 :39 HgA1C , Office (40263) HgA1C , Office 6.5 % (Normal) Range: 4.6 - 7.1 :39 Blood Glucose , Office (05005) Blood Glucose , Office 128 (Normal) :19 CBC With Differential/Platelet Comments: PATIENT WAS FASTINGPERFORMED BY: LabCoSaint Michael's Medical CenterPueywo4743 [facility] [id number] Immature Grans (Abs) 0.0 {x10E3/uL} (Normal) Range: 0.0-0.1 Immature Granulocytes 0 % (Normal) Range: 0-2 Baso (Absolute) 0.1 {x10E3/uL} (Normal) Range: 0.0-0.2 Eos (Absolute) 0.1 {x10E3/uL} (Normal) Range: 0.0-0.4 Monocytes(Absolute) 0.4 {x10E3/uL} (Normal) Range: 0.1-1.0 Lymphs (Absolute) 1.2 {x10E3/uL} (Normal) Range: 0.7-4.5 Neutrophils (Absolute) 3.7 {x10E3/uL} (Normal) Range: 1.8-7.8 Basos 1 % (Normal) Range: 0-3 Eos 2 % (Normal) Range: 0-7 Monocytes 8 % (Normal) Range: 4-13 Lymphs 21 % (Normal) Range: 14-46 Neutrophils 68 % (Normal) Range: 40-74 Platelets 185 {x10E3/uL} (Normal) Range: 140-415 RDW 13.4 % (Normal) Range: 11.7-15.0 MCHC 32.8 g/dL (Normal) Range: 32.0-36.0 MCH 29.3 pg (Normal) Range: 27.0-34.0 MCV 89 fL (Normal) Range: 80-98 Hematocrit 43.6 % (Normal) Range: 34.0-44.0 Hemoglobin 14.3 g/dL (Normal) Range: 11.5-15.0 RBC 4.88 {x10E6/uL} (Normal) Range: 3.80-5.10 WBC 5.6 {x10E3/uL} (Normal) Range: 4.0-10.5 7-Cji-656484:19 Comp. Metabolic Panel (14) Comments: PATIENT WAS FASTINGPERFORMED BY: [facility] [id number] [facility] [id number]; appt 01/11/11 ALT (SGPT) 18 [iU]/L (Normal) Range: 0-40 AST (SGOT) 23 [iU]/L (Normal) Range: 0-40 Alkaline Phosphatase, S 74 [iU]/L (Normal) Range: 25-165 Bilirubin, Total 0.4 mg/dL (Normal) Range: 0.0-1.2 A/G Ratio 2.0 (Normal) Range: 1.1-2.5 Globulin, Total 2.2 g/dL (Normal) Range: 1.5-4.5 Albumin, Serum 4.3 g/dL (Normal) Range: 3.5-4.8 Protein, Total, Serum 6.5 g/dL (Normal) Range: 6.0-8.5 Calcium, Serum 10.2 mg/dL (Normal) Range: 8.6-10.2 Carbon Dioxide, Total 25 mmol/L (Normal) Range: 20-32 Chloride, Serum 102 mmol/L (Normal) Range: 97-108 Potassium, Serum 4.2 mmol/L (Normal) Range: 3.5-5.2 Sodium, Serum 142 mmol/L (Normal) Range: 135-145 BUN/Creatinine Ratio 20 (Normal) Range: 11-26 eGFR If Africn Am 53 mL/min/1.73 (Abnormal) Comments: Note: A persistent eGFR <60 mL/min/1.73 m2 (3 months or more) mayindicate chronic kidney disease. An eGFR >59 mL/min/1.73 m2 with anelevated urine protein also may indicate chronic kidney disease.Calculated using CKD-EPI formula. eGFR If NonAfricn Am 46 mL/min/1.73 (Abnormal) Creatinine, Serum 1.18 mg/dL (Abnormal) Range: 0.57-1.00 BUN 24 mg/dL (Normal) Range: 8-27 Glucose, Serum 113 mg/dL (Abnormal) Range: 65-99 :19 Lipid Panel With LDL/HDL Comments: PATIENT WAS FASTINGPERFORMED BY: LabCoSaint Michael's Medical CenterBlqcvq8947 [facility] [id number] Ratio LDL/HDL Ratio 1.0 {ratio_units} Range: 0.0-3.2 (Normal) LDL Cholesterol Calc 69 mg/dL (Normal) Range: 0-99 VLDL Cholesterol Cesar 21 mg/dL (Normal) Range: 5-40 HDL Cholesterol 66 mg/dL (Normal) Comments: According to ATP-III Guidelines, HDL-C >59 mg/dL is considered anegative risk factor for CHD. Triglycerides 103 mg/dL (Normal) Range: 0-149 Cholesterol, Total 156 mg/dL (Normal) Range: 100-199 TSH 0.800 {uIU/mL} Comments: PATIENT WAS FASTINGPERFORMED BY: LabCoSaint Michael's Medical CenterCgwvpq3557 [facility] [id number] 2:19 (Normal) Range: 0.450-4.500 Vitamin D, 25-Hydroxy 44.0 ng/mL (Normal) Comments: PATIENT WAS FASTINGPERFORMED BY: LabCoSaint Michael's Medical CenterSzcrcl1703 [facility] [id number] 2:19 Range: 32.0-100.0 Comments: Effective February 22, 2011 Vitamin D, 25-Hydroxy reference intervals will be changing to 30-100. .Recent studies consider the lower li sandra of 32.0 ng/mL to be athreshold for optimal health.Otf HAYES. J Nutr. 2004;135(2):317-22. :54 HgA1C , Office (73062) HgA1C , Office 6.6 % (Normal) Range: 4.6 - 7.1 :54 Blood Glucose , Office (13406) Blood Glucose , Office 134 (Normal) :40 Creatinine Clearance Comments: PERFORMED BY: [facility]6370 [facility] [id number] Information: 10/07@7AM 10/08@3AM Creatinine Clearance 56 mL/min (Abnormal) Range: 88-128 Comments: The above range is based on 1.73 square meter average body surfacearea. Creatinine, Ur 24hr 969.0 {mg/24_hr} (Normal) Range: 800.0-1800.0 Creatinine, Urine 64.6 mg/dL (Normal) Range: 15.0-278.0 eGFR If Africn Am 52 mL/min/1.73 (Abnormal) Comments: Note: A persistent eGFR <60 mL/min/1.73 m2 (3 months or more) mayindicate chronic kidney disease. An eGFR >59 mL/min/1.73 m2 with anelevated urine protein also may indicate chronic kidney disease.Calculated using CKD-EPI formula. eGFR If NonAfricn Am 45 mL/min/1.73 (Abnormal) Creatinine, Serum 1.21 mg/dL (Abnormal) Range: 0.57-1.00 :40 Protein Total, Qn, 24-Hr Comments: PERFORMED BY: [facility] Zjuacg9082 [facility] [id number] Urine Prot,24hr calculated 610.5 {mg/24_hr} (Abnormal) Range: 30.0-150.0 Protein,Total,Urine 40.7 mg/dL (Abnormal) Range: 0.0-15.0 :46 Vitamin D Hydroxy (60593) Comments: PATIENT WAS FASTINGPERFORMED BY: [facility] Nfinmj0398 [facility]in [place] [id number] Vitamin D, 25-Hydroxy 36.5 ng/mL (Normal) Range: 32.0-100.0 Comments: Recent studies consider the lower limit of 32.0 ng/mL to be athreshold for optimal health.Otf HAYES. J Nutr. 2004;135(2):317-22. :46 METABOLIC PANEL, COMPREHENSIVE Comments: PATIENT WAS FASTINGPERFORMED BY: LabCoCarlsbad Medical CenterGamuwu8965 [facility] [id number] (31966) ALT (SGPT) 34 [iU]/L (Normal) Range: 0-40 AST (SGOT) 36 [iU]/L (Normal) Range: 0-40 Alkaline Phosphatase, S 74 [iU]/L (Normal) Range: 25-165 Bilirubin, Total 0.4 mg/dL (Normal) Range: 0.0-1.2 A/G Ratio 1.6 (Normal) Range: 1.1-2.5 Globulin, Total 2.4 g/dL (Normal) Range: 1.5-4.5 Albumin, Serum 3.9 g/dL (Normal) Range: 3.5-4.8 Calcium, Serum 10.0 mg/dL (Normal) Range: 8.6-10.2 Protein, Total, Serum 6.3 g/dL (Normal) Range: 6.0-8.5 Carbon Dioxide, Total 27 mmol/L (Normal) Range: 20-32 Chloride, Serum 103 mmol/L (Normal) Range: 97-108 Potassium, Serum 4.5 mmol/L (Normal) Range: 3.5-5.2 Sodium, Serum 143 mmol/L (Normal) Range: 135-145 BUN/Creatinine Ratio 19 (Normal) Range: 11-26 eGFR If Africn Am 57 mL/min/1.73 (Abnormal) Comments: Note: A persistent eGFR <60 mL/min/1.73 m2 (3 months or more) mayindicate chronic kidney disease. An eGFR >59 mL/min/1.73 m2 with anelevated urine protein also may indicate chronic kidney disease.Calculated using CKD-EPI formula. Creatinine, Serum 1.11 mg/dL (Abnormal) Range: 0.57-1.00 eGFR If NonAfricn Am 50 mL/min/1.73 (Abnormal) BUN 21 mg/dL (Normal) Range: 8-27 Glucose, Serum 116 mg/dL (Abnormal) Range: 65-99 :46 LIPID PANEL (29524) Comments: PATIENT WAS FASTINGPERFORMED BY: [facility] [place]70 [facility] HospitalSqwiggleAtrium Health [facility] [id number] LDL Cholesterol Calc 85 mg/dL (Normal) Range: 0-99 LDL/HDL Ratio 1.2 {ratio_units} (Normal) Range: 0.0-3.2 VLDL Cholesterol Cesar 28 mg/dL (Normal) Range: 5-40 HDL Cholesterol 69 mg/dL (Normal) Comments: According to ATP-III Guidelines, HDL-C >59 mg/dL is considered anegative risk factor for CHD. Cholesterol, Total 182 mg/dL (Normal) Range: 100-199 Triglycerides 141 mg/dL (Normal) Range: 0-149 :46 CBC WITH MANUAL DIFF Comments: PATIENT WAS FASTINGPERFORMED BY: Pembe Panjur6370 [facility] [id number] Information: [id number]; appt 10/12/10 (81523) Immature Grans (Abs) 0.0 {x10E3/uL} (Normal) Range: 0.0-0.1 Baso (Absolute) 0.1 {x10E3/uL} (Normal) Range: 0.0-0.2 Eos (Absolute) 0.2 {x10E3/uL} (Normal) Range: 0.0-0.4 Immature Granulocytes 0 % (Normal) Range: 0-2 Comments: Please note reference interval change Lymphs (Absolute) 1.0 {x10E3/uL} (Normal) Range: 0.7-4.5 Monocytes(Absolute) 0.4 {x10E3/uL} (Normal) Range: 0.1-1.0 Neutrophils (Absolute) 3.9 {x10E3/uL} (Normal) Range: 1.8-7.8 Basos 1 % (Normal) Range: 0-3 Eos 3 % (Normal) Range: 0-7 Lymphs 18 % (Normal) Range: 14-46 Monocytes 7 % (Normal) Range: 4-13 Neutrophils 71 % (Normal) Range: 40-74 Platelets 178 {x10E3/uL} (Normal) Range: 140-415 MCH 29.9 pg (Normal) Range: 27.0-34.0 MCHC 33.7 g/dL (Normal) Range: 32.0-36.0 MCV 89 fL (Normal) Range: 80-98 RDW 13.0 % (Normal) Range: 11.7-15.0 Hematocrit 42.1 % (Normal) Range: 34.0-44.0 Hemoglobin 14.2 g/dL (Normal) Range: 11.5-15.0 RBC 4.75 {x10E6/uL} (Normal) Range: 3.80-5.10 WBC 5.5 {x10E3/uL} (Normal) Range: 4.0-10.5 :07 HgA1C , Office (88262) HgA1C , Office 6.6 % (Normal) Range: 4.6 - 7.1 :07 Blood Glucose , Office (65287) Blood Glucose , Office 114 (Normal) 96-Yep-518756:00 Creatinine Clearance Comments: PERFORMED BY: LabCoSaint Michael's Medical CenterMlnwuv6847 [facility] [id number] Information: 12/31@8AM 01/01@4AM Creatinine Clearance 48 mL/min (Abnormal) Range: 88-128 Comments: The above range is based on 1.73 square meter average body surfacearea. Creatinine, Ur 24hr 820.8 {mg/24_hr} (Normal) Range: 800.0-1800.0 Creatinine, Urine 60.8 mg/dL (Normal) Range: 15.0-278.0 eGFR 44 mL/min/1.73 (Abnormal) eGFR AfricanAmerican 54 mL/min/1.73 (Abnormal) Comments: Note: Persistent reduction for 3 months or more in an eGFR<60 mL/min/1.73 m2 defines CKD. Patients with eGFR values>/=60 mL/min/1.73 m2 may also have CKD if evidence of persistentproteinuria is present. Additional information may be found [email or web address].org. Creatinine, Serum 1.20 mg/dL (Abnormal) Range: 0.57-1.00 54-Wwv-129970:00 Protein Total, Qn, 24-Hr Comments: PERFORMED BY: [facility]Henry [facility]6370 [facility] [id number] Urine Prot,24hr calculated 1070.6 {mg/24_hr} (Abnormal) Range: 30.0-150.0 Protein,Total,Urine 79.3 mg/dL (Abnormal) Range: 0.0-15.0 89-Oec-193531:48 BILAT [facility] DIGITAL & CAD Radiology Report See Note (Normal) Comments: Exam Number: [id number] MAMMOGRAPHY - BILATERAL SCREENING INDICATION:Routine annual screening examination. PERTINENT HISTORY:Non-contributory. TECHNIQUE:Digital examination. Mediolateral oblique (MLO) a nd craniocaudad(CC) views of both breasts were obtained. CAD was performed on thisstudy. COMPARISON:Comparison is made with prior study dated September 12, 2007. FINDINGS:The breast composition is composed of scattered fibroglandulardensities. There are no masses or suspicious microcalcifications. No other significant abnormalities are identified. There has beenno significant change since the prior study . IMPRESSION:Normal bilateral screening mammogram. Yearly follow-up recommended. ASSESSMENT CATEGORY:Category 2: Benign finding(s) Approximately 10% of breast cancers are not detected by mammography.A normal mammogram should not delay biopsy of a clinicallysuspicious abnormality.This addendum is being created for the purpose of attaching a ResultCode to this exam.ADDENDUM: [id number] HPBI/MDS Reported By: MISAEL HEBERT 65-Deo-360911:48 DEXA BONE DENSITY STUDY (HP) Radiology Report See Note (Normal) Comments: Exam Number: [id number] CLINICAL:This is a 69-year-old female patient with postmenopausal screening. EXAMINATION:DUAL ENERGY X-RAY ABSORPTIOMETRY / DEXA. TECHNIQUE:Bone Density Measurements (BMD) of lumb ar spine and bilateral hipswere obtained using a [employer] scanner.. COMPARISON:None. FINDINGS: Lumbar Spine (L1-L4): g/cm2 (1.128) / T- score (-0.3) / Z-score(0.8)Left Femur Total: g/cm2 (0.986) / T-score (-0.2) / Z-score (0.9)Right Femur Total: g/cm2 (0.951) / T-score (-0.4) / Z-score(0.7) Additional Abnormal T-Scores: None. IMPRESSION:The patient is considered normal, as outlined above, according toWorld Health Organization (WHO) criteria. Fracture risk is low. Reference Information:The T-score is the number of standard deviations above or below thestandard which is normal for young adults at their peak bone mineraldensity. The World Health Organization (WHO) interprets the T-scoresas follows: Above -1 Normal bone densityBetween -1 and -2.5 OsteopeniaEqual to / or below -2.5 Osteoporosis As a practical clinical guideline, osteopenia may be graded asfollows:Mild -1 through - 1.5Moderate -1.6 through -2.0Severe -2.1 through -2.4 The Z-score is the number of standard deviations above or belowage- matched controls. A Z-score of less than -1.5 would beconsidered abnormal. References:1. NIH Osteoporosis and Related B one Diseases http://www.osteo.[email or web address]. International Society for Clinical Densitometryhttp://www.iscd.org3. National Osteoporosis Foundation http://www.nof.org Reported By: MISAEL HEBERT 42-Eru-642827:29 HgA1C , Office (25721) HgA1C , Office 6.5 % (Normal) Range: 4.6 - 7.1 36-Bgb-118927:29 Blood Glucose , Office (37221) Blood Glucose , Office 109 (Normal) 86-Irp-86291:05 CBC With Differential/Platelet Comments: PATIENT WAS FASTINGPERFORMED BY: LabCoSaint Michael's Medical CenterGgqrrf3486 [facility] [id number] Immature Grans (Abs) 0.0 {x10E3/uL} (Normal) Range: 0.0-0.1 Baso (Absolute) 0.1 {x10E3/uL} (Normal) Range: 0.0-0.2 Eos (Absolute) 0.1 {x10E3/uL} (Normal) Range: 0.0-0.4 Immature Granulocytes 0 % (Normal) Range: 0-1 Lymphs (Absolute) 1.1 {x10E3/uL} (Normal) Range: 0.7-4.5 Monocytes(Absolute) 0.4 {x10E3/uL} (Normal) Range: 0.1-1.0 Neutrophils (Absolute) 2.2 {x10E3/uL} (Normal) Range: 1.8-7.8 Basos 2 % (Normal) Range: 0-3 Eos 3 % (Normal) Range: 0-7 Lymphs 27 % (Normal) Range: 14-46 Monocytes 10 % (Normal) Range: 4-13 Neutrophils 58 % (Normal) Range: 40-74 Platelets 155 {x10E3/uL} (Normal) Range: 140-415 MCH 29.4 pg (Normal) Range: 27.0-34.0 MCHC 33.6 g/dL (Normal) Range: 32.0-36.0 RDW 13.3 % (Normal) Range: 11.7-15.0 Hematocrit 37.5 % (Normal) Range: 34.0-44.0 Hemoglobin 12.6 g/dL (Normal) Range: 11.5-15.0 MCV 88 fL (Normal) Range: 80-98 RBC 4.28 {x10E6/uL} (Normal) Range: 3.80-5.10 WBC 3.9 {x10E3/uL} (Abnormal) Range: 4.0-10.5 83-Qkq-85647:05 Comp. Metabolic Panel (14) Comments: PATIENT WAS FASTINGPERFORMED BY: LabCoSaint Michael's Medical CenterElsagq8171 [facility] [id number] ALT (SGPT) 20 [iU]/L (Normal) Range: 0-40 Alkaline Phosphatase, S 67 [iU]/L (Normal) Range: 25-165 AST (SGOT) 21 [iU]/L (Normal) Range: 0-40 Bilirubin, Total 0.3 mg/dL (Normal) Range: 0.0-1.2 A/G Ratio 2.0 (Normal) Range: 1.1-2.5 Albumin, Serum 4.0 g/dL (Normal) Range: 3.5-4.8 Calcium, Serum 9.2 mg/dL (Normal) Range: 8.6-10.2 Carbon Dioxide, Total 28 mmol/L (Normal) Range: 20-32 Globulin, Total 2.0 g/dL (Normal) Range: 1.5-4.5 Protein, Total, Serum 6.0 g/dL (Normal) Range: 6.0-8.5 Chloride, Serum 104 mmol/L (Normal) Range: 97-108 Potassium, Serum 4.2 mmol/L (Normal) Range: 3.5-5.2 Sodium, Serum 143 mmol/L (Normal) Range: 135-145 BUN 25 mg/dL (Normal) Range: 5-26 BUN/Creatinine Ratio 25 (Normal) Range: 8-27 Creatinine, Serum 1.02 mg/dL (Abnormal) Range: 0.57-1.00 eGFR 53 mL/min/1.73 (Abnormal) eGFR AfricanAmerican >59 mL/min/1.73 Comments: Note: Persistent reduction for 3 months or more in an eGFR<60 mL/min/1.73 m2 defines CKD. Patients with eGFR values>/=60 mL/min/1.73 m2 may also have CKD if evidence of persistentproteinuria is (Normal) present. Additional information may be found [email or web address]. Glucose, Serum 123 mg/dL (Abnormal) Range: 65-99 40-Rjn-77196:05 Lipid Panel With LDL/HDL Comments: PATIENT WAS FASTINGPERFORMED BY: [facility] Qoaymc2705 [facility] [id number] Ratio HDL Cholesterol 54 mg/dL (Normal) Comments: According to ATP-III Guidelines, HDL-C >59 mg/dL is considered anegative risk factor for CHD. LDL Cholesterol Calc 78 mg/dL (Normal) Range: 0-99 LDL/HDL Ratio 1.4 {ratio_units} Range: 0.0-3.2 (Normal) VLDL Cholesterol Cesar 25 mg/dL (Normal) Range: 5-40 Cholesterol, Total 157 mg/dL (Normal) Range: 100-199 Triglycerides 123 mg/dL (Normal) Range: 0-149 Vitamin D, 25-Hydroxy 51.6 ng/mL (Normal) Comments: PATIENT WAS FASTINGPERFORMED BY: AuditionBooth70 [facility] [id number] :05 Range: 32.0-100.0 Comments: Recent studies consider the lower limit of 32.0 ng/mL to be athreshold for optimal health.Otf HAYES. J Nutr. 2004;135(2):317-22. 47-Hge-84383:41 SPLEEN (HP) Radiology Report See Note (Normal) Comments: Exam Number: [id number] ULTRASOUND OF THE SPLEEN A goal directed ultrasound of the spleen was obtained. HISTORYThis is a 69-year-old female patient with a history ofthrombocytopenia. FINDINGSThe spleen i s not enlarged. It measures 11.7 cm in longitudinaldimension, by 5.4 cm in transverse dimension, by 4.7 cm in APdimension. It is of homogeneous echotexture. No focal lesion isseen. IMPRESSIONNormal s plenic sonogram. Reported By: MISAEL HEBERT 17-Jun-2009 C-Reactive Protein, 0.5 mg/L (Normal) Comments: PERFORMED BY: [employer] Tech6370 [facility] [id number] 10:54 Quant Range: 0.0-4.9 17-Jun-2009 Hemoglobin A1c 6.3 % (Abnormal) Comments: PERFORMED BY: [employer]6370 [facility] [id number] 10:54 Range: 4.8-5.6 Comments: Increased risk for diabetes: 5.7 - 6.4Diabetes: >6.4Glycemic control for adults with diabetes: <7.0.Please note reference interval change 17-Jun-2009 Sedimentation 4 mm/h (Normal) Comments: PERFORMED BY: AuditionBooth70 [facility] [id number] 10:54 Rate-Westergren Range: 0-30 17-Jun-2009 Vitamin B12 1372 pg/mL Comments: PERFORMED BY: [facility] Rycyrb1617 [facility] [id number] 10:54 (Abnormal) Range: 211-911 Comments: Effective July 14, 2009, Vitamin B12 will bechanging to the [place] ECLIA methodology. Thereference interval will be changing to:211 - 946 pg/mL 17-Jun-2009 Vitamin D, 25-Hydroxy 37.7 ng/mL Comments: PERFORMED BY: [facility] Tnpbvd6779 [facility] [id number] 10:54 (Normal) Range: 32.0-100.0 Comments: Recent studies consider the lower limit of 32.0 ng/mL to be athreshold for optimal health.Otf HAYES. J Nutr. 2004;135(2):317-22. 83-Bia-802225:34 Vitamin D Hydroxy Comments: PATIENT NOT FASTINGPERFORMED BY: [facility] Vqudve3806 [facility] [id number] Information: [id number],2ND ORDER NO DRAW F EE (29967) Vitamin D, 25-Hydroxy 48.5 ng/mL (Normal) Range: 30.0-100.0 Comments: Vitamin D deficiency has been defined by the [place] ofMedicine and an Endocrine Society practice guideline as alevel of serum 25-OH vitamin D less than 20 ng/mL (1,2).The Endocrine Society went on to further define vitamin Dinsufficiency as a level between 21 and 29 ng/mL (2).1. IOM ([place] of Medicine). 2010. Dietary reference intakes for calcium and D. [place]: The National Academies Press.2. Mira MF, [place], Tommy SWAIN, et al. Evaluation, treatment, and prevention of vitamin D deficiency: an Endocrine Society clinical practice guideline. JCEM. 2010; 96(7):1911-30. 11-Fuz-35314:50 HgA1C , Office (02733) HgA1C , Office 6.7 % (Normal) Range: 4.6 - 7.1 :50 Blood Glucose , Office (86744) Blood Glucose , Office 117 (Normal) 28-Yov-522312:12 CBC With Differential/Platelet Comments: PERFORMED BY: EVE LabCoSaint Michael's Medical CenterUvfwag6938 [facility] [id number] Information: 06/10@6AM3/10@330AM Hematology Comments: Note: (Normal) Comments: Verified by microscopic examination. Baso (Absolute) 0.0 {x10E3/uL} (Normal) Range: 0.0-0.2 Eos (Absolute) 0.1 {x10E3/uL} (Normal) Range: 0.0-0.4 Lymphs (Absolute) 1.0 {x10E3/uL} (Normal) Range: 0.7-4.5 Monocytes(Absolute) 0.3 {x10E3/uL} (Normal) Range: 0.1-1.0 Neutrophils (Absolute) 2.2 {x10E3/uL} (Normal) Range: 1.8-7.8 Basos 1 % (Normal) Range: 0-3 Eos 3 % (Normal) Range: 0-7 Monocytes 8 % (Normal) Range: 4-13 Lymphs 28 % (Normal) Range: 14-46 Neutrophils 60 % (Normal) Range: 40-74 Platelets 101 {x10E3/uL} (Abnormal) Range: 140-415 Comments: Actual platelet count may be somewhat higher than reported due toaggregation of platelets in this sample. MCHC 34.5 g/dL (Normal) Range: 32.0-36.0 RDW 14.2 % (Normal) Range: 11.7-15.0 Hematocrit 39.1 % (Normal) Range: 34.0-44.0 Hemoglobin 13.5 g/dL (Normal) Range: 11.5-15.0 MCH 30.9 pg (Normal) Range: 27.0-34.0 MCV 90 fL (Normal) Range: 80-98 RBC 4.37 {x10E6/uL} (Normal) Range: 3.80-5.10 WBC 3.6 {x10E3/uL} (Abnormal) Range: 4.0-10.5 75-Jbr-415661:12 Comp. Metabolic Panel (14) Comments: PERFORMED BY: LabCoSaint Michael's Medical CenterWgbehc6212 [facility] [id number] Alkaline Phosphatase, S 68 [iU]/L (Normal) Range: 25-165 ALT (SGPT) 20 [iU]/L (Normal) Range: 0-40 AST (SGOT) 21 [iU]/L (Normal) Range: 0-40 Bilirubin, Total 0.3 mg/dL (Normal) Range: 0.1-1.2 A/G Ratio 1.7 (Normal) Range: 1.1-2.5 Albumin, Serum 3.8 g/dL (Normal) Range: 3.5-4.8 Calcium, Serum 9.1 mg/dL (Normal) Range: 8.6-10.2 Carbon Dioxide, Total 26 mmol/L (Normal) Range: 20-32 Globulin, Total 2.2 g/dL (Normal) Range: 1.5-4.5 Protein, Total, Serum 6.0 g/dL (Normal) Range: 6.0-8.5 BUN/Creatinine Ratio 14 (Normal) Range: 8-27 Chloride, Serum 104 mmol/L (Normal) Range: 97-108 Potassium, Serum 4.0 mmol/L (Normal) Range: 3.5-5.2 Sodium, Serum 143 mmol/L (Normal) Range: 135-145 eGFR 47 mL/min/1.73 (Abnormal) eGFR AfricanAmerican 57 mL/min/1.73 Comments: Note: Persistent reduction for 3 months or more in an eGFR<60 mL/min/1.73 m2 defines CKD. Patients with eGFR values>/=60 mL/min/1.73 m2 may also have CKD if evidence of persistentproteinur ia is (Abnormal) present. Additional information may be found [email or web address]. BUN 16 mg/dL (Normal) Range: 5-26 Creatinine, Serum 1.14 mg/dL (Abnormal) Range: 0.57-1.00 Glucose, Serum 124 mg/dL (Abnormal) Range: 65-99 93-Cca-654042:12 Creatinine Clearance Comments: PERFORMED BY: [facility]6370 [facility] [id number] Creatinine Clearance 49 mL/min (Abnormal) Range: 88-128 Comments: The above range is based on 1.73 square meter average body surfacearea. Creatinine, Ur 24hr 800.0 {mg/24_hr} (Normal) Range: 800.0-1800.0 Creatinine, Urine 40.0 mg/dL (Normal) Range: 15.0-278.0 31-Vho-170250:12 Lipid Panel With LDL/HDL Comments: PERFORMED BY: [employer] [facility] [id number] Ratio HDL Cholesterol 61 mg/dL (Normal) Comments: According to ATP-III Guidelines, HDL-C >59 mg/dL is considered anegative risk factor for CHD. LDL Cholesterol Calc 74 mg/dL (Normal) Range: 0-99 LDL/HDL Ratio 1.2 {ratio_units} (Normal) Range: 0.0-3.2 VLDL Cholesterol Cesar 17 mg/dL (Normal) Range: 5-40 Cholesterol, Total 152 mg/dL (Normal) Range: 100-199 Triglycerides 87 mg/dL (Normal) Range: 0-149 33-Uoa-340188:12 Protein Total, Qn, 24-Hr Comments: PERFORMED BY: [employer]Booth70 [facility] [id number] Urine Prot,24hr calculated 1172.0 {mg/24_hr} Range: 30.0-150.0 (Abnormal) Protein,Total,Urine 58.6 mg/dL (Abnormal) Range: 0.0-15.0 TSH 1.280 {uIU/mL} Comments: PERFORMED BY: NVC LightingSaint Michael's Medical CenterXxvyei2354 [facility] [id number] 1:12 (Normal) Range: 0.450-4.500 :58 HgA1C , Office (05096) HgA1C , Office 6.0 % (Normal) Range: 4.6 - 7.1 :58 Blood Glucose , Office (26206) Blood Glucose , Office 113 (Normal) 3-Yvx-999165:03 CBC With Differential/Platelet Comments: PATIENT WAS FASTINGPERFORMED BY: NVC LightingSaint Michael's Medical CenterEunojq7982 [facility] [id number] Baso (Absolute) 0.0 {x10E3/uL} (Normal) Range: 0.0-0.2 Basos 1 % (Normal) Range: 0-3 Eos 3 % (Normal) Range: 0-7 Eos (Absolute) 0.1 {x10E3/uL} (Normal) Range: 0.0-0.4 Hematocrit 36.9 % (Normal) Range: 34.0-44.0 Hemoglobin 12.2 g/dL (Normal) Range: 11.5-15.0 Lymphs 26 % (Normal) Range: 14-46 Lymphs (Absolute) 0.8 {x10E3/uL} (Normal) Range: 0.7-4.5 MCH 30.5 pg (Normal) Range: 27.0-34.0 MCHC 33.1 g/dL (Normal) Range: 32.0-36.0 MCV 92 fL (Normal) Range: 80-98 Monocytes 7 % (Normal) Range: 4-13 Monocytes(Absolute) 0.2 {x10E3/uL} (Normal) Range: 0.1-1.0 Neutrophils 63 % (Normal) Range: 40-74 Neutrophils (Absolute) 2.0 {x10E3/uL} (Normal) Range: 1.8-7.8 Platelets 107 {x10E3/uL} (Abnormal) Range: 140-415 RBC 4.01 {x10E6/uL} (Normal) Range: 3.80-5.10 RDW 14.7 % (Normal) Range: 11.7-15.0 WBC 3.2 {x10E3/uL} (Abnormal) Range: 4.0-10.5 1-Lex-339129:03 Comp. Metabolic Panel (14) Comments: PATIENT WAS FASTINGPERFORMED BY: [facility]6370 [facility] [id number] A/G Ratio 2.0 (Normal) Range: 1.1-2.5 Albumin, Serum 3.9 g/dL (Normal) Range: 3.5-4.8 Alkaline Phosphatase, S 71 [iU]/L (Normal) Range: 25-165 ALT (SGPT) 16 [iU]/L (Normal) Range: 0-40 AST (SGOT) 16 [iU]/L (Normal) Range: 0-40 Bilirubin, Total 0.2 mg/dL (Normal) Range: 0.1-1.2 BUN/Creatinine Ratio 26 (Normal) Range: 8-27 Calcium, Serum 9.7 mg/dL (Normal) Range: 8.5-10.6 Carbon Dioxide, Total 23 mmol/L (Normal) Range: 20-32 Chloride, Serum 105 mmol/L (Normal) Range: 97-108 eGFR 44 mL/min/1.73 (Abnormal) eGFR AfricanAmerican 53 mL/min/1.73 Comments: Note: Persistent reduction for 3 months or more in an eGFR<60 mL/min/1.73 m2 defines CKD. Patients with eGFR values>/=60 mL/min/1.73 m2 may also have CKD if evidence of persistentproteinur ia is (Abnormal) present. Additional information may be found [email or web address]. Globulin, Total 2.0 g/dL (Normal) Range: 1.5-4.5 Potassium, Serum 4.2 mmol/L (Normal) Range: 3.5-5.2 Protein, Total, Serum 5.9 g/dL (Abnormal) Range: 6.0-8.5 Sodium, Serum 141 mmol/L (Normal) Range: 135-145 BUN 32 mg/dL (Abnormal) Range: 5-26 Creatinine, Serum 1.21 mg/dL (Abnormal) Range: 0.57-1.00 Glucose, Serum 116 mg/dL (Abnormal) Range: 65-99 :03 Lipid Panel With LDL/HDL Comments: PATIENT WAS FASTINGPERFORMED BY: [facility]IT[facility]OAt[facility] [id number] Ratio Cholesterol, Total 167 mg/dL (Normal) Range: 100-199 HDL Cholesterol 56 mg/dL (Normal) Comments: According to ATP-III Guidelines, HDL-C >59 mg/dL is considered anegative risk factor for CHD. LDL Cholesterol Calc 95 mg/dL (Normal) Range: 0-99 LDL/HDL Ratio 1.7 {ratio_units} Range: 0.0-3.2 (Normal) Triglycerides 81 mg/dL (Normal) Range: 0-149 VLDL Cholesterol Cesar 16 mg/dL (Normal) Range: 5-40 Vitamin D, 25-Hydroxy 38.0 ng/mL (Normal) Comments: PATIENT WAS FASTINGPERFORMED BY: Pembe Panjur6370 [facility]ConnectAt[facility] [id number] :03 Range: 32.0-100.0 Comments: Recent studies consider the lower limit of 32.0 ng/mL to be athreshold for optimal health.Otf HAYES. J Nutr. 2004;135(2):317-22. 69-Tcy-318591:32 Urinalysis, Office (29686) UA - BILIRUBIN Negative (Normal) UA - BLOOD Hemolyzed Trace (Normal) UA - GLUCOSE Negative (Normal) UA - KETONES Negative mg/dL (Normal) UA - LEUKOCYTE ESTERASE Negative (Normal) UA - NITRITE Negative (Normal) UA - PH 6.5 (Normal) UA - PROTEIN 300 mg/dL (Normal) UA - SPECIFIC GRAVITY 1.020 (Normal) URINE UROBILINGN JATINDER TIMED 2 mg/dL (Normal) 1-Ngm-524611:19 URINE SETH CULTURE-JATINDER COL Comments: PATIENT NOT FASTINGClinical Information: SRC:UR ADD [id number] PERFORMED BY: [facility] Ydwabr2552 [facility] [id number] COUNT (96246) Result 1 ECV (Normal) Comments: Escherichia coli, identified by an automated biochemical system.Greater than 100,000 colony forming units per mL S = Susceptible; I = Intermediate; R = Resistant P = Posi tive; N = Negative MICS are expressed in micrograms per mL Antibiotic RSLT#1 RSLT#2 RSLT#3 RSLT#4Amoxicillin/Clavulanic Acid SAmpicillin RCef epime SCeftriaxone SCefuroxime SCephalothin SCiprofloxacin SESBL NGentamicin SImipenem SLevofloxacin SNitrofurantoin SPiperacillin/Tazobactam STetracycline RTobramycin STrimethoprim/Sulfa R Urine Final report (Normal) Culture,Comprehensiv e 09-Jan-20098:17 Urinalysis, Office (33439) UA - BILIRUBIN Negative (Normal) UA - BLOOD Hemolyzed Large (Normal) UA - GLUCOSE Negative (Normal) UA - KETONES Negative mg/dL (Normal) UA - LEUKOCYTE ESTERASE Moderate (Normal) UA - NITRITE Negative (Normal) UA - PH 7.0 (Normal) UA - PROTEIN 300 mg/dL (Normal) UA - SPECIFIC GRAVITY 1.020 (Normal) URINE UROBILINGN JATINDER TIMED 2 mg/dL (Normal) 3-Jxt-274357:05 Comp. Metabolic Panel (14) Comments: PATIENT WAS FASTINGPERFORMED BY: [employer] Jahkpw8404 [facility] [id number] A/G Ratio 1.7 (Normal) Range: 1.1-2.5 Albumin, Serum 4.0 g/dL (Normal) Range: 3.5-4.8 Alkaline Phosphatase, S 59 [iU]/L (Normal) Range: 25-165 ALT (SGPT) 14 [iU]/L (Normal) Range: 0-40 AST (SGOT) 19 [iU]/L (Normal) Range: 0-40 Bilirubin, Total 0.3 mg/dL (Normal) Range: 0.1-1.2 BUN 25 mg/dL (Normal) Range: 5-26 BUN/Creatinine Ratio 23 (Normal) Range: 8-27 Calcium, Serum 10.0 mg/dL (Normal) Range: 8.5-10.6 Carbon Dioxide, Total 27 mmol/L (Normal) Range: 20-32 Chloride, Serum 102 mmol/L (Normal) Range: 97-108 Creatinine, Serum 1.11 mg/dL (Abnormal) Range: 0.57-1.00 eGFR 49 mL/min/1.73 (Abnormal) eGFR AfricanAmerican 59 mL/min/1.73 Comments: Note: Persistent reduction for 3 months or more in an eGFR<60 mL/min/1.73 m2 defines CKD. Patients with eGFR values>/=60 mL/min/1.73 m2 may also have CKD if evidence of persistentproteinur ia is (Abnormal) present. Additional information may be found [email or web address]. Globulin, Total 2.4 g/dL (Normal) Range: 1.5-4.5 Glucose, Serum 97 mg/dL (Normal) Range: 65-99 Potassium, Serum 4.1 mmol/L (Normal) Range: 3.5-5.2 Protein, Total, Serum 6.4 g/dL (Normal) Range: 6.0-8.5 Sodium, Serum 142 mmol/L (Normal) Range: 135-145 8-Kas-309402:05 Hepatic Function Panel (7) Comments: PATIENT WAS FASTINGPERFORMED BY: [employer] Gedvan1750 [facility] [id number] Bilirubin, Direct 0.12 mg/dL (Normal) Range: 0.00-0.40 :05 Lipid Panel With LDL/HDL Comments: PATIENT WAS FASTINGPERFORMED BY: [facility] Lcyjxh2845 [facility] [id number] Ratio Cholesterol, Total 170 mg/dL (Normal) Range: 100-199 HDL Cholesterol 63 mg/dL (Normal) Comments: According to ATP-III Guidelines, HDL-C >59 mg/dL is considered anegative risk factor for CHD. LDL Cholesterol Calc 91 mg/dL (Normal) Range: 0-99 LDL/HDL Ratio 1.4 {ratio_units} Range: 0.0-3.2 (Normal) Triglycerides 80 mg/dL (Normal) Range: 0-149 VLDL Cholesterol Cesar 16 mg/dL (Normal) Range: 40 Phosphorus, Serum 4.1 mg/dL (Normal) Comments: PATIENT WAS FASTINGPERFORMED BY: [facility] Oywjvi9745 [facility] [id number] :05 Range: 2.5-4.5 PTH, Intact 19 pg/mL (Normal) Comments: PATIENT WAS FASTINGPERFORMED BY: [facility] Lfxphn6805 [facility] [id number] :05 Range: 15-65 Vitamin D, 25-Hydroxy 38.9 ng/mL (Normal) Comments: PATIENT WAS FASTINGPERFORMED BY: [facility] Mykwsu5790 [facility] [id number] :05 Range: 32.0-100.0 Comments: Recent studies consider the lower limit of 32.0 ng/mL to be athreshold for optimal health.Otf HAYES. J Nutr. 2004;135(2):317-22. :40 HgA1C , Office (77026) HgA1C , Office 6.0 % (Normal) Range: 4.6 - 7.1 :40 Blood Glucose , Office (23642) Blood Glucose , Office 109 (Normal) :42 CBC With Differential/Platelet Comments: PATIENT WAS FASTINGPERFORMED BY: [facility] Raxppk4172 [facility] [id number] Baso (Absolute) 0.0 {x10E3/uL} (Normal) Range: 0.0-0.2 Basos 1 % (Normal) Range: 0-3 Eos 2 % (Normal) Range: 0-7 Eos (Absolute) 0.1 {x10E3/uL} (Normal) Range: 0.0-0.4 Hematocrit 39.4 % (Normal) Range: 34.0-44.0 Hematology Comments: Note: (Normal) Comments: Verified by microscopic examination. Hemoglobin 13.5 g/dL (Normal) Range: 11.5-15.0 Lymphs 23 % (Normal) Range: 14-46 Lymphs (Absolute) 1.0 {x10E3/uL} (Normal) Range: 0.7-4.5 MCH 31.4 pg (Normal) Range: 27.0-34.0 MCHC 34.3 g/dL (Normal) Range: 32.0-36.0 MCV 92 fL (Normal) Range: 80-98 Monocytes 9 % (Normal) Range: 4-13 Monocytes(Absolute) 0.4 {x10E3/uL} (Normal) Range: 0.1-1.0 Neutrophils 65 % (Normal) Range: 40-74 Neutrophils (Absolute) 2.7 {x10E3/uL} (Normal) Range: 1.8-7.8 RBC 4.30 {x10E6/uL} (Normal) Range: 3.80-5.10 RDW 14.4 % (Normal) Range: 11.7-15.0 WBC 4.2 {x10E3/uL} (Normal) Range: 4.0-10.5 97-Bnp-738558:42 Comp. Metabolic Panel (14) Comments: PATIENT WAS FASTINGPERFORMED BY: LabCoSaint Michael's Medical CenterYapswl9254 [facility] [id number] A/G Ratio 1.6 (Normal) Range: 1.1-2.5 Albumin, Serum 4.0 g/dL (Normal) Range: 3.5-4.8 Alkaline Phosphatase, S 63 [iU]/L (Normal) Range: 25-165 ALT (SGPT) 27 [iU]/L (Normal) Range: 0-40 AST (SGOT) 34 [iU]/L (Normal) Range: 0-40 Bilirubin, Total 0.3 mg/dL (Normal) Range: 0.1-1.2 BUN 30 mg/dL (Abnormal) Range: 5-26 BUN/Creatinine Ratio 25 (Normal) Range: 8-27 Calcium, Serum 10.8 mg/dL (Abnormal) Range: 8.5-10.6 Carbon Dioxide, Total 29 mmol/L (Normal) Range: 20-32 Chloride, Serum 99 mmol/L (Normal) Range: 97-108 Creatinine, Serum 1.21 mg/dL (Abnormal) Range: 0.57-1.00 eGFR 44 mL/min/1.73 (Abnormal) eGFR AfricanAmerican 53 mL/min/1.73 Comments: Note: Persistent reduction for 3 months or more in an eGFR<60 mL/min/1.73 m2 defines CKD. Patients with eGFR values>/=60 mL/min/1.73 m2 may also have CKD if evidence of persistentproteinur ia is (Abnormal) present. Additional information may be found [email or web address]. Globulin, Total 2.5 g/dL (Normal) Range: 1.5-4.5 Glucose, Serum 138 mg/dL (Abnormal) Range: 65-99 Potassium, Serum 4.3 mmol/L (Normal) Range: 3.5-5.2 Protein, Total, Serum 6.5 g/dL (Normal) Range: 6.0-8.5 Sodium, Serum 140 mmol/L (Normal) Range: 135-145 1-Aqz-333505:09 FECAL OCCULT HGB ASSAY, QUAL, 1-3 SIMULTANEOUS DETERMINATIONS (31700) FECAL OCCULT HGB ASSAY, QUAL, 1-3 SIMULTANEOU neg (Normal) :42 Microscopic Examination Comments: PATIENT WAS FASTINGPERFORMED BY: LabCoSaint Michael's Medical CenterBhxdxw2399 [facility] [id number] Bacteria None seen (Normal) Cast Type Hyaline casts (Normal) Casts Present {/lpf} (Abnormal) Epithelial Cells (non renal) 0-10 {/hpf} (Normal) Range: 0 - 10 Mucus Threads Present (Normal) RBC 0-3 {/hpf} (Normal) Range: 0 - 3 WBC 0-5 {/hpf} (Normal) Range: 0 - 5 :42 URINALYSIS W/O MICRO (47864) Comments: PATIENT WAS FASTINGPERFORMED BY: NVC LightingAngela [place] [id number] [facility] [id number] Appearance Clear (Normal) Bilirubin Negative (Normal) Glucose Negative (Normal) Ketones Negative (Normal) Microscopic Examination See below: (Normal) Nitrite, Urine Negative (Normal) Occult Blood Negative (Normal) pH 5.0 (Normal) Range: 5.0-7.5 Protein 1+ (Abnormal) Specific [place] 1.013 (Normal) Range: 1.005-1.030 Urine-Color Yellow (Normal) Urobilinogen,Semi-Qn 0.2 mg/dL (Normal) Range: 0.0-1.9 WBC Esterase 1+ (Abnormal) :42 MICROALBUMIN: CREATININE RATIO Comments: PATIENT WAS FASTINGPERFORMED BY: [place] LightingAng[place] [id number] [facility] [id number] (40397) AND (91795) Creatinine, Urine 76.1 mg/dL (Normal) Range: 15.0-278.0 Microalb/Creat Ratio 292.1 {ug/mg_creat} (Abnormal) Range: 0.0-30.0 Microalbumin, Urine 222.3 ug/mL (Abnormal) Range: 0.0-17.0 :42 CBC WITH MANUAL DIFF ([id number]) Comments: PATIENT WAS FASTINGClinical Information: ADD DRAW FEE [id number] ADD J [id number] PERFORMED BY: [place] [id number] [facility] [id number] Baso (Absolute) 0.0 {x10E3/uL} (Normal) Range: 0.0-0.2 Basos 1 % (Normal) Range: 0-3 Eos 3 % (Normal) Range: 0-7 Eos (Absolute) 0.1 {x10E3/uL} (Normal) Range: 0.0-0.4 Hematocrit 37.8 % (Normal) Range: 34.0-44.0 Hemoglobin 12.7 g/dL (Normal) Range: 11.5-15.0 Lymphs 24 % (Normal) Range: 14-46 Lymphs (Absolute) 1.0 {x10E3/uL} (Normal) Range: 0.7-4.5 MCH 30.9 pg (Normal) Range: 27.0-34.0 MCHC 33.7 g/dL (Normal) Range: 32.0-36.0 MCV 92 fL (Normal) Range: 80-98 Monocytes 8 % (Normal) Range: 4-13 Monocytes(Absolute) 0.3 {x10E3/uL} (Normal) Range: 0.1-1.0 Neutrophils 64 % (Normal) Range: 40-74 Neutrophils (Absolute) 2.6 {x10E3/uL} (Normal) Range: 1.8-7.8 Platelets 140 {x10E3/uL} (Normal) Range: 140-415 Comments: Please note reference interval change RBC 4.12 {x10E6/uL} (Normal) Range: 3.80-5.10 RDW 14.1 % (Normal) Range: 11.7-15.0 WBC 4.1 {x10E3/uL} (Normal) Range: 4.0-10.5 05-Sep-20089:42 METABOLIC PANEL, COMPREHENSIVE Comments: PATIENT WAS FASTINGPERFORMED BY: [facility]CoSaint [facility] [id number] [facility] [id number] ([id number]) A/G Ratio 1.8 (Normal) Range: 1.1-2.5 Albumin, Serum 4.1 g/dL (Normal) Range: 3.5-4.8 Alkaline Phosphatase, S 66 [iU]/L (Normal) Range: 25-165 ALT (SGPT) 11 [iU]/L (Normal) Range: 0-40 AST (SGOT) 16 [iU]/L (Normal) Range: 0-40 Bilirubin, Total 0.3 mg/dL (Normal) Range: 0.1-1.2 BUN 39 mg/dL (Abnormal) Range: 5-26 BUN/Creatinine Ratio 31 (Abnormal) Range: 8-27 Calcium, Serum 10.0 mg/dL (Normal) Range: 8.5-10.6 Carbon Dioxide, Total 22 mmol/L (Normal) Range: 20-32 Chloride, Serum 103 mmol/L (Normal) Range: 97-108 Creatinine, Serum 1.24 mg/dL (Abnormal) Range: 0.57-1.00 eGFR 43 mL/min/1.73 (Abnormal) eGFR AfricanAmerican 52 mL/min/1.73 Comments: Note: Persistent reduction for 3 months or more in an eGFR<60 mL/min/1.73 m2 defines CKD. Patients with eGFR values>/=60 mL/min/1.73 m2 may also have CKD if evidence of persistentproteinur ia is (Abnormal) present. Additional information may be found [email or web address]. Globulin, Total 2.3 g/dL (Normal) Range: 1.5-4.5 Glucose, Serum 112 mg/dL (Abnormal) Range: 65-99 Potassium, Serum 4.2 mmol/L (Normal) Range: 3.5-5.2 Protein, Total, Serum 6.4 g/dL (Normal) Range: 6.0-8.5 Sodium, Serum 141 mmol/L (Normal) Range: 135-145 :23 HgA1C , Office (40927) HgA1C , Office 6.0 % (Normal) Range: 4.6 - 7.1 :23 Blood Glucose , Office (96995) Blood Glucose , Office 103 (Normal) 97-Kzr-398781:38 CBC WITH MANUAL DIFF (40367) Comments: PATIENT WAS FASTINGClinical Information: ADD DRAW FEE [id number] ADD J 40003 PERFORMED BY: [facility] [id number] Baso (Absolute) 0.0 {x10E3/uL} (Normal) Range: 0.0-0.2 Basos 1 % (Normal) Range: 0-3 Eos 3 % (Normal) Range: 0-7 Eos (Absolute) 0.1 {x10E3/uL} (Normal) Range: 0.0-0.4 Hematocrit 35.3 % (Normal) Range: 34.0-44.0 Hemoglobin 12.3 g/dL (Normal) Range: 11.5-15.0 Lymphs 22 % (Normal) Range: 14-46 Lymphs (Absolute) 0.9 {x10E3/uL} (Normal) Range: 0.7-4.5 MCH 31.6 pg (Normal) Range: 27.0-34.0 MCHC 34.8 g/dL (Normal) Range: 32.0-36.0 MCV 91 fL (Normal) Range: 80-98 Monocytes 7 % (Normal) Range: 4-13 Monocytes(Absolute) 0.3 {x10E3/uL} (Normal) Range: 0.1-1.0 Neutrophils 67 % (Normal) Range: 40-74 Neutrophils (Absolute) 2.7 {x10E3/uL} (Normal) Range: 1.8-7.8 Platelets 119 {x10E3/uL} (Abnormal) Range: 140-415 Comments: Please note reference interval change RBC 3.89 {x10E6/uL} (Normal) Range: 3.80-5.10 RDW 14.7 % (Normal) Range: 11.7-15.0 WBC 4.0 {x10E3/uL} (Normal) Range: 4.0-10.5 48-Qbn-356748:38 METABOLIC PANEL, COMPREHENSIVE Comments: PATIENT WAS FASTINGPERFORMED BY: LabCoSaint Michael's Medical CenterMsmqdt8859 [facility] [id number] ([id number]) A/G Ratio 1.8 (Normal) Range: 1.1-2.5 Albumin, Serum 3.9 g/dL (Normal) Range: 3.5-4.8 Alkaline Phosphatase, S 70 [iU]/L (Normal) Range: 25-165 ALT (SGPT) 12 [iU]/L (Normal) Range: 0-40 AST (SGOT) 15 [iU]/L (Normal) Range: 0-40 Bilirubin, Total 0.3 mg/dL (Normal) Range: 0.1-1.2 BUN 53 mg/dL (Abnormal) Range: 5-26 BUN/Creatinine Ratio 40 (Abnormal) Range: 8-27 Calcium, Serum 9.4 mg/dL (Normal) Range: 8.5-10.6 Carbon Dioxide, Total 22 mmol/L (Normal) Range: 20-32 Chloride, Serum 103 mmol/L (Normal) Range: 97-108 Creatinine, Serum 1.31 mg/dL (Abnormal) Range: 0.57-1.00 eGFR 40 mL/min/1.73 (Abnormal) eGFR AfricanAmerican 49 mL/min/1.73 Comments: Note: Persistent reduction for 3 months or more in an eGFR<60 mL/min/1.73 m2 defines CKD. Patients with eGFR values>/=60 mL/min/1.73 m2 may also have CKD if evidence of persistentproteinur ia is (Abnormal) present. Additional information may be found [email or web address]. Globulin, Total 2.2 g/dL (Normal) Range: 1.5-4.5 Glucose, Serum 157 mg/dL (Abnormal) Range: 65-99 Potassium, Serum 4.8 mmol/L (Normal) Range: 3.5-5.2 Protein, Total, Serum 6.1 g/dL (Normal) Range: 6.0-8.5 Sodium, Serum 142 mmol/L (Normal) Range: 135-145 93-Fsu-348664:38 HEPATIC FUNCTION PANEL Comments: PATIENT WAS FASTINGPERFORMED BY: [facility]OAt[facility] [id number] ([id number]) Bilirubin, Direct 0.08 mg/dL (Normal) Range: 0.00-0.40 :38 LIPID PANEL (91028) Comments: PATIENT WAS FASTINGPERFORMED BY: [facility] [id number] Cholesterol, Total 200 mg/dL (Abnormal) Range: 100-199 Comment SPRCS (Normal) Comments: If initial LDL-cholesterol result is >100 mg/dL, assess forrisk factors. HDL Cholesterol 55 mg/dL (Normal) Comments: According to ATP-III Guidelines, HDL-C >59 mg/dL is considered anegative risk factor for CHD. LDL Cholesterol Calc 127 mg/dL (Abnormal) Range: 0-99 LDL/HDL Ratio 2.3 {ratio_units} (Normal) Range: 0.0-3.2 Triglycerides 92 mg/dL (Normal) Range: 0-149 VLDL Cholesterol Cesar 18 mg/dL (Normal) Range: 5-40 1-Qap-815151:36 HgA1C , Office (30439) HgA1C , Office 6.1 % (Normal) Range: 4.6 - 7.1 :36 Blood Glucose , Office (61278) Blood Glucose , Office 98 (Normal) 56-Ohe-036430:33 CBC With Differential/Platelet Comments: PATIENT WAS FASTINGClinical Information: SRC:UR PERFORMED BY: No [facility]ainsTen[facility] [place] [id number] Baso (Absolute) 0.0 {x10E3/uL} (Normal) Range: 0.0-0.2 Basos 1 % (Normal) Range: 0-3 Eos 2 % (Normal) Range: 0-7 Eos (Absolute) 0.1 {x10E3/uL} (Normal) Range: 0.0-0.4 Hematocrit 38.5 % (Normal) Range: 34.0-44.0 Hemoglobin 12.8 g/dL (Normal) Range: 11.5-15.0 Lymphs 23 % (Normal) Range: 14-46 Lymphs (Absolute) 1.1 {x10E3/uL} (Normal) Range: 0.7-4.5 MCH 29.2 pg (Normal) Range: 27.0-34.0 MCHC 33.1 g/dL (Normal) Range: 32.0-36.0 MCV 88 fL (Normal) Range: 80-98 Monocytes 8 % (Normal) Range: 4-13 Monocytes(Absolute) 0.4 {x10E3/uL} (Normal) Range: 0.1-1.0 Neutrophils 66 % (Normal) Range: 40-74 Neutrophils (Absolute) 3.2 {x10E3/uL} (Normal) Range: 1.8-7.8 Platelets 151 {x10E3/uL} (Normal) Range: 140-415 RBC 4.38 {x10E6/uL} (Normal) Range: 3.80-5.10 RDW 15.7 % (Abnormal) Range: 11.7-15.0 WBC 4.8 {x10E3/uL} (Normal) Range: 4.0-10.5 80-Ifx-280240:33 Comp. Metabolic Panel (14) Comments: PATIENT WAS FASTINGPERFORMED BY: LabHenry [facility] Cott[facility] Hospital6370 [facility] [id number] A/G Ratio 1.6 (Normal) Range: 1.1-2.5 Albumin, Serum 4.1 g/dL (Normal) Range: 3.5-4.8 Alkaline Phosphatase, S 72 [iU]/L (Normal) Range: 25-165 ALT (SGPT) 12 [iU]/L (Normal) Range: 0-40 AST (SGOT) 16 [iU]/L (Normal) Range: 0-40 Bilirubin, Total 0.2 mg/dL (Normal) Range: 0.1-1.2 BUN 28 mg/dL (Abnormal) Range: 5-26 BUN/Creatinine Ratio 24 (Normal) Range: 8-27 Calcium, Serum 9.8 mg/dL (Normal) Range: 8.5-10.6 Carbon Dioxide, Total 28 mmol/L (Normal) Range: 20-32 Chloride, Serum 101 mmol/L (Normal) Range: 97-108 Creatinine, Serum 1.15 mg/dL (Abnormal) Range: 0.57-1.00 Globulin, Total 2.5 g/dL (Normal) Range: 1.5-4.5 Glom Filt Rate, Est 47 mL/min/1.73 (Abnormal) Glucose, Serum 92 mg/dL (Normal) Range: 65-99 If -Kazakh 57 mL/min/1.73 Comments: Note: Persistent reduction for 3 months or more in an eGFR<60 mL/min/1.73 m2 defines CKD. Patients with eGFR values>/=60 mL/min/1.73 m2 may also have CKD if evidence of persistentproteinur ia is (Abnormal) present. Additional information may be found [email or web address]. Potassium, Serum 3.9 mmol/L (Normal) Range: 3.5-5.2 Protein, Total, Serum 6.6 g/dL (Normal) Range: 6.0-8.5 Sodium, Serum 142 mmol/L (Normal) Range: 135-145 76-Xmn-614862:33 Lipid Panel With LDL/HDL Comments: PATIENT WAS FASTINGPERFORMED BY: EQAL Xqwwey8478 [facility] [id number] Ratio Cholesterol, Total 174 mg/dL (Normal) Range: 100-199 HDL Cholesterol 67 mg/dL (Normal) Comments: According to ATP-III Guidelines, HDL-C >59 mg/dL is considered anegative risk factor for CHD. LDL Cholesterol Calc 85 mg/dL (Normal) Range: 0-99 LDL/HDL Ratio 1.3 {ratio_units} (Normal) Range: 0.0-3.2 Triglycerides 110 mg/dL (Normal) Range: 0-149 VLDL Cholesterol Cesar 22 mg/dL (Normal) Range: 5-40 19-Ypz-541148:33 Urine Culture,Comprehensive Comments: PATIENT WAS FASTINGPERFORMED BY: CB LabHenry Ford Cottage Hospital6370 [facility] [id number] Antimicrobial MIHEAD (Normal) Comments: S = Susceptible; I = Intermediate; R = Resistant P = Positive; N = Negative MICS are expressed in micrograms per mL Antibiotic RSLT#1 RSLT#2 Susceptibility RSLT#3 RSLT#4Ciprofloxacin ILevofloxacin RNitrofurantoin SPenicillin RVancomycin S Result 1 Enterococcus faecalis Comments: 1,000 Colonies/mLNote: this isolate is vancomycin-susceptible.This information is provided for epidemiologic purposesonly: vancomycin is not among the antibioticsrecommended for therapy of urinary tract infectionscaused by Enterococcus. (Normal) Urine Final report (Normal) Culture,Comprehensive 2-Rgm-190328:10 HgA1C , Office (65957) HgA1C , Office 5.9 % (Normal) Range: 4.6 - 7.1 :03 BMP BUN 35 mg/dL (Abnormal) Range: 7-18 BUN/CRE 25.0 {RATIO} (Abnormal) Range: 10-20 CA 9.7 mg/dL (Normal) Range: 8.5-10.1 CL 105 mmol/L (Normal) Range: 98-107 CO2 30.2 mmol/L (Normal) Range: 21.0-32.0 CREAT,SERUM 1.4 mg/dL (Abnormal) Range: 0.6-1.0 GAP 7 (Normal) Range: 5-15 K 4.3 mmol/L (Normal) Range: 3.5-5.1 NA 142 mmol/L (Normal) Range: 136-145 GLU 107 mg/dL (Normal) Range: 70-110 :03 CREAT CLR 24H U CREAT CLEARANCE 45 ml/min (Abnormal) Range: 100-200 SERUM CREAT 1.4 mg/dL (Abnormal) Range: 0.6-1.0 UR COLLECT TIME 24.0 {HOURS} (Normal) UR TOTAL VOLUME 2150 mL (Normal) URINE CREAT 43.0 mg/dL (Normal) :03 PROU 24HR 24hr UR PROTEIN 430.0 {mg/day} (Abnormal) UR COLLECT TIME 24.0 {HOURS} (Normal) UR TOTAL VOLUME 2150 mL (Normal) URINE PROTEIN 20.0 mg/dL (Abnormal) 79-Clp-971905:17 Urine Culture,Comprehensive Comments: Clinical Information: SRC:UR PERFORMED BY: [employer]E [employer] Critas7082 [facility] [id number] Result 1 CNSNSS (Normal) Comments: Coagulase negative Staphylococcus species, not Staphylococcussaprophyticus.600 Colonies/mLSusceptibility or resistance of staphylococci to oxacillin predictssusceptibility or resistance to (a) other be nw-ragjzafuc-wlpiwbozehqsclnih such as cloxacillin and dicloxacillin, (b) combinationsof a penicillin and a beta-lactamase inhibitor, and(c) anti- staphylococcal cephalosporins. Routine testing of otherp enicillins, beta-lactam/beta-lactamase inhibitor combinations,cephems, and carbapenems is not advised by the CLSI Standards(X819-N19, 2005). S = Susceptible; I = Intermediate; R = Resistant * P = Positive; N = Negative MICS are expressed in micrograms per mL Antibiotic RSLT#1 RSLT#2 RSLT#3 RSLT#4Ciprofloxacin RGentami kristian SLevofloxacin RNitrofurantoin SOxacillin SPenicillin RRifampin STrimethoprim/Sulfa SVancomycin S Urine Final report Culture,Comprehensi (Normal) ve 2-Xpz-486864:53 Metabolic Panel, Basic (96826) Comments: PATIENT NOT FASTINGClinical Information: ADD DRAW FEE [id number] ADD J 31902 PERFORMED BY: [facility] Exgndm0569 [facility] [id number] BUN 39 mg/dL (Abnormal) Range: 5-26 BUN/Creatinine Ratio 33 (Abnormal) Range: 8-27 Calcium, Serum 9.8 mg/dL (Normal) Range: 8.5-10.6 Carbon Dioxide, Total 22 mmol/L (Normal) Range: 20-32 Chloride, Serum 103 mmol/L (Normal) Range: 97-108 Creatinine, Serum 1.20 mg/dL (Abnormal) Range: 0.57-1.00 Glom Filt Rate, Est 45 mL/min/1.73 Range: 60-128 (Abnormal) Glucose, Serum 101 mg/dL (Abnormal) Range: 65-99 If -Kazakh 55 mL/min/1.73 Range: 60-128 (Abnormal) Comments: Note: Persistent reduction for 3 months or more in an eGFR<60 mL/min/1.73 m2 defines CKD. Patients with eGFR values>/=60 mL/min/1.73 m2 may also have CKD if evidence of persistentproteinuria is present. Additional information may be found [email or web address]. Potassium, Serum 5.1 mmol/L (Normal) Range: 3.5-5.2 Sodium, Serum 139 mmol/L (Normal) Range: 135-145 :09 HgA1C , Office (74281) HgA1C , Office 6.1 % (Normal) Range: 4.6 - 7.1 :09 Blood Glucose , Office (67734) Blood Glucose , Office 163 (Normal) :37 SPINE,LUMBAR (ROUTINE) Radiology Report See Note (Normal) Comments: Exam Number: [id number] MRI LUMBAR SPINE CLINICAL STATEMENTLow back pain with radiculopathy down right leg. Sagittal and axial T1 and T2-weighted scans were acquired. From T12to L3 there is no disc asaf iation or other significant extraduralencroachment on the spinal canal. The foramina are widely patent. At L3-4 there is mild circumferential disc bulging flattening theventral thecal sac. The canal a nd foramina are not stenotic. At L4-5 there is moderate disc protrusion with a broad focal componentcompressing the ventral thecal sac. There is some facet degenerationand posterior ligament hypertroph y contributing to mild canalstenosis. The L4 foramina are not stenotic. At L5-S1 there is advanced degenerative disc disease and narrowing. The spinal canal is not stenotic with no compression by the posteriordisc margin. There is foraminal narrowing on both sides at L5. IMPRESSION1. Disc protrusion and posterior ligament thickening at L4-5 resultin mild spinal canal stenosis. There is facet d egeneration, greaterto the left.2. Degenerative disc disease at L5-S1 with foraminal narrowing onboth sides. Reported By: MODESTA COPE M.D. 26-Gin-854292:00 BILAT SCRN DIGITAL & CAD Radiology Report See Note (Normal) Comments: Exam Number: [id number] MAMMOGRAM, BILATERAL SCREENING DIGITAL AND CAD HISTORYRoutine screening. Full field digital images were obtained in mediolateral oblique andcraniocaudal projections. CAD images w ere reviewed. The current [facility] A small metal marker is placed on a mole on the left. There is moderately de nse fibroglandular parenchyma present. There isno skin thickening or retraction, architectural distortion, ordominant mass. There are scattered calcifications which are morenumerous on the right than the left. There are areas of asymmetricparenchymal density which have not significantly changed. If there isno suspicious palpable abnormality, followup mammogram in 1 year isrecommended. IMPRESSIONT here is no radiographic evidence of malignancy identified. FINAL ASSESSMENTBenign findings. BIRADS Category 2. A letter regarding these results has been sent to the patient. This interpretation was re ndered by a radiologist certified under theMammography Quality Standards Act of 1992 (MQSA). The mammograms werealso examined with computer-aided detection software ([employer].). Reported By: DONNA OJEDA M.D. 90-Zgk-925875:59 DEXA BONE DENSITY STUDY (HP) Radiology Report See Note (Normal) Comments: Exam Number: [id number] BONE DENSITOMETRY HISTORYPost menopausal. TECHNIQUE Bone densitometry of the lumbar spine and left hip was performed. Thebest criteria for evaluation of osteoporosis is the T -value, whichrepresents the comparison of the patient's bone mass to an expectedpeak bone mass. For most patients, the mean T-value of L1 through L4is used to evaluate the lumbar spine. Based on the n ewest WorldHealth Organization classifications, the hip is evaluated by utilizingthe lower of the T-value of the total hip or the T-value of thefemoral neck. FINDINGSIn this patient, the mean T-value of L1 through L4 is -1.2 which is inthe range of osteopenia. Digital lateral view for evaluation ofvertebral deformity only demonstrates no obvious compressionfractures. The T-value of the left femoral neck is -0.1 which isnormal. The T-value of the total left hip is 0 which is normal. IMPRESSIONThere is osteopenia of the lumbar spine. Bone densitometry of theleft hip is within normal limits. Reported By: DONNA OJEDA M.D. :55 L/S SPINE,MIN 4 VIEWS (MT) Radiology Report See Note (Normal) Comments: Exam Number: [id number] FIVE VIEW LUMBAR SPINE AP, lateral, both obliques and a coned down L5-S1. Being done for lowback pain radiating to the right hip. Pedicles are intact. There is a v mariella mild sco liosis with convexityto the left. There is marked degenerative disk disease at L5-S1 withair in the disk space from degeneration. What is seen of the SIjoints is unremarkable. No fractures are seen. There is mildscattered spur formation. There is some calcification in theabdominal aorta that does not suggest aneurysmal dilatation. IMPRESSIONModerate degenerative changes L5-S1. If the patient pe rsists at beingsymptomatic, MR scan is suggested to evaluate possible nerve rootirritation. Reported By: MAIRA GARZA M.D. :19 Microalb/Creat Ratio, Randm Ur Comments: PATIENT NOT FASTINGPERFORMED BY: [employer] LabCoAviaryHlnuqe4798 [facility] [id number] Creatinine, Urine 46.8 mg/dL (Normal) Microalb/Creat Ratio 712.8 {ug/mg_creat} (Abnormal) Range: 0.0-30.0 Microalbum.,U,Random 333.6 ug/mL (Abnormal) Range: 0.0-17.0 :13 Creatinine Clearance Comments: PATIENT NOT FASTINGClinical Information: HT-5'4'' WT-184 PERFORMED BY: [employer] LabCoStraatum Processware Xtxvvu9101 [facility] [id number] Creatinine Clearance 40 mL/min (Abnormal) Range: 88-128 Comments: The above range is based on 1.73 square meter average body surfacearea. Creatinine, Serum 1.30 mg/dL (Normal) Range: 0.50-1.50 Creatinine, Ur 24hr 754.8 {mg/24_hr} Range: 800.0-1800.0 (Abnormal) Creatinine, Urine 44.4 mg/dL (Normal) Glom Filt Rate, Est 41 mL/min (Abnormal) Range: 60-128 If -Kazakh 50 mL/min (Abnormal) Range: 60-128 Comments: Note: Persistent reduction for 3 months or more in an eGFR<60 mL/min/1.73 m2 defines CKD. Patients with eGFR values>/=60 mL/min/1.73 m2 may also have CKD if evidence of persistentproteinuria is present. .Additional information may be found at [email or web address]. :13 Protein Total, Qn, 24-Hr Comments: PATIENT NOT FASTINGPERFORMED BY: [facility] Bcclne8374 [facility] [id number] Urine Protein,Total,Urine 49.0 mg/dL (Abnormal) Range: 0.0-15.0 Prt, 24hr calculated 833.0 {mg/24_hr} (Abnormal) Range: 30.0-150.0 :00 CBCD,SMEAR DIFF CELLS COUNTED 100 (Normal) EOS 1 % (Normal) Range: 0-5 HCT 40.5 % (Normal) Range: 37-47 HGB 13.8 g/dL (Normal) Range: 12.0-16.0 LYMPH 30 % (Normal) Range: 19-41 MCH 30.6 pg (Normal) Range: 27.0-32.0 MCHC 34.0 g/dL (Normal) Range: 32-36 MCV 90.0 fL (Normal) Range: 81-99 PLT 131 K/mm3 (Abnormal) Range: 150-450 PLT EST SeeNote (Normal) Comments: Result: ADEQUATE RBC 4.50 {M/mm3} (Normal) Range: 4.2-5.4 RDW 13.3 % (Normal) Range: 11.6-14.6 RED CELL MORPH SeeNote {NORMAL} (Normal) Comments: Result: NORM C+C SEGS 69 % (Normal) Range: 47-70 WBC 4.3 K/mm3 (Abnormal) Range: 4.4-11.0 :00 COMP METABOLIC A/G 1.4 {RATIO} (Normal) Range: 0.9-2.4 ALB 3.8 g/dL (Normal) Range: 3.4-5.0 ALK P 82 U/L (Normal) Range: 50-136 ALT 36 U/L (Normal) Range: 30-65 AST 19 U/L (Normal) Range: 15-37 BUN 44 mg/dL (Abnormal) Range: 7-18 BUN/CRE 31.4 {RATIO} (Abnormal) Range: 10-20 CA 9.9 mg/dL (Normal) Range: 8.5-10.1 CL 105 mmol/L (Normal) Range: 98-107 CO2 31.9 mmol/L (Normal) Range: 21.0-32.0 CREAT,SERUM 1.4 mg/dL (Abnormal) Range: 0.6-1.0 GAP 2 (Abnormal) Range: 5-15 GLOB 2.8 g/dL (Normal) Range: 2.7-4.2 GLU 108 mg/dL (Normal) Range: 70-110 K 4.7 mmol/L (Normal) Range: 3.5-5.1 NA 139 mmol/L (Normal) Range: 136-145 T BILI 0.25 mg/dL (Normal) Range: 0.00-1.00 T PROT 6.6 g/dL (Normal) Range: 6.4-8.2 01-Ycp-029476:00 D BILI 0.06 mg/dL (Normal) Range: 0.00-0.30 92-Aoh-066994:00 LIPID CHOL 175 mg/dL (Normal) Comments: <200 mg/dL Desirable 200-240 mg/dL Borderline >240 mg/dL High Risk HDL 64 mg/dL (Normal) Comments: Reference Range HDL <40 mg/dL Low HDL Cholesterol HDL >or= 60 mg/dL High HDL Cholesterol LDL 99 mg/dL (Normal) Range: 0-130 TRIG 59 mg/dL (Normal) Comments: Serum Triglycerides Reference Interval Normal <150 mg/dL Borderline high 150 - 199 mg/dL High 200 - 499 mg/dL Very High > or = 500 mg/dL VLDL 12 mg/dL (Normal) Range: 5-40 41-Wvh-159158:00 TSH 0.84 {uIU/mL} (Normal) Range: 0.34-4.82 Plan of Care Name Dates Details Instructions Diabetes mellitus type II, controlled : Eprescribed prescriptions (G8553) Indication: Diabetes mellitus type II, controlled Localized osteoarthritis of left knee : Euflexxa injection Indication: Localized osteoarthritis of left knee Diabetes mellitus type II, controlled : Eprescribed prescriptions (G8553) Indication: Diabetes mellitus type II, controlled Knee pain, unspecified laterality : Knee Injections Indication: Knee pain, unspecified laterality Depression : Eprescribed prescriptions (G8553) Indication: Depression Knee pain, unspecified laterality : Knee Injections Indication: Knee pain, unspecified laterality BMI 27.0-27.9,adult : Eprescribed prescriptions (G8553) Indication: BMI 27.0-27.9,adult BMI 28.0-28.9,adult : Eprescribed prescriptions (G8553) Indication: BMI 28.0-28.9,adult Shoulder pain : Shoulder Injection Indication: Shoulder pain Diabetes mellitus type II, controlled : Eprescribed prescriptions (G8553) Indication: Diabetes mellitus type II, controlled Chest pain : Eprescribed prescriptions (G8553) Indication: Chest pain Diabetes mellitus type II, controlled : Diet, Exercise, and Wt loss Indication: Diabetes mellitus type II, controlled Mixed hyperlipidemia : Diet, Exercise, and Wt loss Indication: Mixed hyperlipidemia Diabetes mellitus type II, controlled : Eprescribed prescriptions (G8553) Indication: Diabetes mellitus type II, controlled Localized osteoarthritis of left knee : Euflexxa injection Indication: Localized osteoarthritis of left knee Diabetes mellitus type II, controlled : Eprescribed prescriptions (G8553) Indication: Diabetes mellitus type II, controlled Osteoarthritis of left knee, unspecified osteoarthritis type : Euflexxa injection Indication: Osteoarthritis of left knee, unspecified osteoarthritis type Osteoarthritis of left knee, unspecified osteoarthritis type : Euflexxa injection Indication: Osteoarthritis of left knee, unspecified osteoarthritis type Acute maxillary sinusitis, recurrence not specified : Eprescribed prescriptions (G8553) Indication: Acute maxillary sinusitis, recurrence not specified Diabetes mellitus type II, controlled : Eprescribed prescriptions (G8553) Indication: Diabetes mellitus type II, controlled Nonsmoker : Eprescribed prescriptions (G8553) Indication: Nonsmoker Diabetes mellitus type II, controlled : Eprescribed prescriptions (G8553) Indication: Diabetes mellitus type II, controlled Hypertension, benign : Eprescribed prescriptions (G8553) Indication: Hypertension, benign Diabetes mellitus type II, controlled : Eprescribed prescriptions (G8553) Indication: Diabetes mellitus type II, controlled Knee pain, unspecified laterality : Knee Injections Indication: Knee pain, unspecified laterality Depression : Eprescribed prescriptions (G8553) Indication: Depression Anxiety : Eprescribed prescriptions (G8553) Indication: Anxiety Viral infection, unspecified : Viral Sore Throat: throat Indication: Viral infection, unspecified Cerumen Impaction : Follow up if no improvement or if symptoms worsen Indication: Cerumen Impaction Diabetes mellitus type II, controlled : Eprescribed prescriptions (G8553) Indication: Diabetes mellitus type II, controlled Shoulder pain : Shoulder Injection Indication: Shoulder pain Diabetes mellitus type II, controlled : Eprescribed prescriptions (G8553) Indication: Diabetes mellitus type II, controlled Diabetes mellitus type II, controlled : Eprescribed prescriptions (G8553) Indication: Diabetes mellitus type II, controlled Diabetes mellitus type II, controlled : Eprescribed prescriptions (G8553) Indication: Diabetes mellitus type II, controlled Diabetes mellitus type II, controlled : Eprescribed prescriptions (G8553) Indication: Diabetes mellitus type II, controlled Diabetes mellitus type II, controlled : Diabetes and Exercise: Preventing Low Blood Sugar: blood sugar Indication: Diabetes mellitus type II, controlled Diabetes mellitus type II, controlled : Diabetes and Illness: diabetes Indication: Diabetes mellitus type II, controlled Hypertension, benign : High Blood Pressure (Essential Hypertension) *: blood pressure Indication: Hypertension, benign Diarrhea : Follow up in 2 days Indication: Diarrhea Viral infection, unspecified : *URI Symptoms Indication: Viral infection, unspecified Viral infection, unspecified : *URI Treatment Indication: Viral infection, unspecified Diabetes mellitus type II, controlled : Diabetes and Illness: diabetes Indication: Diabetes mellitus type II, controlled Acute sinusitis : *Antibiotic Usage Education - Female Indication: Acute sinusitis Shoulder pain : Shoulder Injection Indication: Shoulder pain Viral infection, unspecified : *URI Symptoms Indication: Viral infection, unspecified Viral infection, unspecified : *URI Treatment Indication: Viral infection, unspecified Shoulder pain : Shoulder Injection Indication: Shoulder pain Mixed hyperlipidemia : Diet and Exercise Indication: Mixed hyperlipidemia Shoulder pain : Shoulder Injection Indication: Shoulder pain Neoplasm of uncertain behavior of skin : Shave Biopsy without Epi Indication: Neoplasm of uncertain behavior of skin Planned Observations CBC with auto diff ([id number])Indication: Diabetes mellitus type II, controlled On: 22 Request HGB A1C (43402)Indication: Diabetes mellitus type II, controlled On: :21 Request METABOLIC PANEL, COMPREHENSIVE (92137)Indication: Chronic kidney disease, stage 3 On: : Request LIPID PANEL (82386)Indication: Other and unspecified hyperlipidemia On: 29-Fxa-659292:21 Request Vitamin D Hydroxy (68920)Indication: Vitamin D deficiency On: 06-Aqy-854151:21 Request PARATHORMONE (11048)Indication: Chronic kidney disease, stage 3 On: 06-Mar-20188:59 Request Comments: fax to [phone] MICROALBUMIN: CREATININE RATIO (90283) AND (14113)Indication: Chronic kidney disease, stage 3 On: :55 Request Comments: fax to [phone] RENAL FUNCTION PANEL (74339)Indication: Chronic kidney disease, stage 3 On: :54 Request Comments: fax to [phone] MAGNESIUM (53734)Indication: Chronic kidney disease, stage 3 On: :54 Request Comments: fax to [phone] Parathyroid Hormone-related Peptide (PTH-rP) (93252)Indication: Chronic kidney disease, stage 3 On: :54 Request Comments: fax to [phone] CBC W/AUTO DIFF WBC (17016)Indication: Chronic kidney disease, stage 3 On: 67-Lmt-564503:25 Request Parathyroid Hormone-related Peptide (PTH-rP) (75298)Indication: Vitamin D deficiency On: 3-Oim-941906:43 Request Comments: send results to Dr. Santana fax: [phone] VITAMIN D, 1, 25-DIHYDROXY (84062)Indication: Vitamin D deficiency On: 9-Uei-859363:42 Request Comments: send results to Dr. Santana fax: [phone] Clostridium difficile Toxin A+B, EIA (97652)Indication: Chronic diarrhea On: 0-Rpe-422545:36 Request Vitamin D Hydroxy (13894)Indication: Osteopenia On: 1-Vjt-263755:20 Request CBC W/AUTO DIFF WBC (98406)Indication: Hypertension, benign On: 6-Bpf-489235:16 Request CALCIFEDIOL (36369)Indication: Chronic kidney disease, stage 3 On: 03-Aug-20169:04 Request Renal function Panel (18163)Indication: Chronic kidney disease, stage 3 On: 03-Aug-20169:04 Request Magnesium (22391)Indication: Chronic kidney disease, stage 3 On: :04 Request MICROALBUMIN: CREATININE RATIO (22322) AND (81674)Indication: Chronic kidney disease, stage 3 On: :04 Request Parathyroid Hormone-related Peptide (PTH-rP) (08973)Indication: Chronic kidney disease, stage 3 On: :04 Request T4, FREE (THYROXINE) (66245)Indication: Cold feeling On: :31 Request TSH (45850)Indication: Cold feeling On: :31 Request PARATHORMONE ([id number])Indication: Chronic kidney disease, stage 3 On: :18 Request Comments: copy to Dr. Santana [phone] CALCIFIDIOL (87983) VIT D 25Indication: Chronic kidney disease, stage 3 On: :16 Request Comments: copy to Dr. Santana [phone] MAGNESIUM ([id number])Indication: Chronic kidney disease, stage 3 On: :15 Request Comments: copy to Dr. Santana [phone] PROTEIN/CREAT RATIO, URINE (01617)Indication: Chronic kidney disease, stage 3 On: :15 Request Comments: copy to Dr. Santana [phone] LIPID PANEL (12793)Indication: Mixed hyperlipidemia On: 48-Gil-267081:21 Request CBC with auto diff (13847)Indication: Diabetes mellitus type II, controlled On: 16-Xxt-646473:20 Request METABOLIC PANEL, COMPREHENSIVE (70257)Indication: Diabetes mellitus type II, controlled On: 10-Jjn-139978:20 Request HGB A1C (06320)Indication: Diabetes mellitus type II, controlled On: 21-Ufw-219203:10 Request Vitamin D Hydroxy (95521)Indication: Osteopenia On: 94-Ixr-795342:08 Request TSH (THYROID STIMULATING HORMONE) (35081)Indication: Depression On: 15-Dfq-955765:06 Request LIPID PANEL (10775)Indication: Other and unspecified hyperlipidemia On: 82-Fdz-456986:06 Request CBC with auto diff (32937)Indication: Diabetes mellitus type II, controlled On: 11-Low-259554:06 Request METABOLIC PANEL, COMPREHENSIVE (09654)Indication: Diabetes mellitus type II, controlled On: 27-Yte-634383:06 Request CREATININE CLEARANCE (27832)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 On: 3-Qls-306721:38 Request Total Protein,24 Hour Urine (18017)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 On: 8-Xav-865967:38 Request CBC W/AUTO DIFF WBC ([id number])Indication: Diabetes mellitus type II, controlled On: 38-Ket-068139:11 Request HgA1C , Office (79821)Indication: Diabetes mellitus type II, controlled On: 11-Bcz-208177:23 Request CULTURE, SPUTUM ([id number])Indication: Cough On: 21-Fdf-646546:47 Request HEPATIC FUNCTION PANEL (09874)Indication: Elevated LFTs On: 05-Qxm-95945:24 Request CREATININE CLEARANCE (80739)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 On: :33 Request 24 hour urine for Protein ([id number])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 On: :33 Request CBC WITH MANUAL DIFF ([id number])Indication: Diabetes mellitus type II, controlled On: 08-Hbk-536192:29 Request METABOLIC PANEL, COMPREHENSIVE (00787)Indication: Diabetes mellitus type II, controlled On: 70-Tci-638382:29 Request LIPID PANEL (46827)Indication: Mixed hyperlipidemia On: :29 Request CREATININE CLEARANCE (08345)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 On: 4-Ifw-756284:45 Request 24 hour urine for Protein ([id number])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 On: 3-Frf-545024:45 Request CREATININE CLEARANCE ([id number])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 On: 81-Pio-775639:57 Request 24 hour urine for Protein (15489)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 On: 79-Pxx-135835:57 Request METABOLIC PANEL, COMPREHENSIVE (35356)Indication: Hypertension, benign On: :32 Request LIPID PANEL ([id number])Indication: Mixed hyperlipidemia On: 79-Xyq-20136:32 Request C-REACTIVE PROTEIN (45526)Indication: Fatigue On: 11-Bwc-97608:24 Request SED RATE ERYTHROCYTE (18614)Indication: Headache On: :24 Request VITAMIN B-12 (CYANOCOBALAMIN) (41953)Indication: Fatigue On: :24 Request LIPID PANEL (00832)Indication: Mixed hyperlipidemia On: :41 Request CBC WITH MANUAL DIFF ([id number])Indication: Hypertension, benign On: :41 Request METABOLIC PANEL, COMPREHENSIVE (07189)Indication: Hypertension, benign On: :41 Request CREATININE CLEARANCE ([id number])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 On: :34 Request 24 hour urine for Protein (62079)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 On: :34 Request LIPID PANEL (88367)Indication: Mixed hyperlipidemia On: :22 Request HEPATIC FUNCTION PANEL (03243)Indication: Mixed hyperlipidemia On: :22 Request Vitamin D Hydroxy (92908)Indication: Hypercalcemia On: :22 Request PHOSPHORUS (28504)Indication: Hypercalcemia On: 6-Agz-918798:22 Request PARATHORMONE ([id number])Indication: Hypercalcemia On: 5-Jwb-168016:22 Request METABOLIC PANEL, COMPREHENSIVE (58953)Indication: Hypercalcemia On: :22 Request CBC WITH MANUAL DIFF ([id number])Indication: fsgs On: 0-Ckr-148190:58 Request LIPID PANEL ([id number])Indication: Mixed hyperlipidemia On: :58 Request METABOLIC PANEL, COMPREHENSIVE (33398)Indication: Hypertension, benign On: :58 Request Blood Glucose , Office (67471)Indication: Diabetes mellitus type II, controlled On: 6-Lmy-733546:10 Request TSH ([id number])Indication: Diabetes mellitus type II, controlled On: 24-Suf-484882:51 Request METABOLIC PANEL, COMPREHENSIVE (73028)Indication: Diabetes mellitus type II, controlled On: 54-Kjx-262437:51 Request CBC WITH MANUAL DIFF ([id number])Indication: Diabetes mellitus type II, controlled On: 27-Pwz-805724:51 Request MICROALBUMIN: CREATININE RATIO ([id number]) AND ([id number])Indication: Diabetes mellitus type II, controlled On: 15-Cum-487201:51 Request HEPATIC FUNCTION PANEL (52448)Indication: Other and unspecified hyperlipidemia On: :51 Request LIPID PANEL ([id number])Indication: Other and unspecified hyperlipidemia On: :51 Request HgA1C , Office (49561)Indication: Diabetes mellitus type II, controlled On: :37 Request Blood Glucose , Office ([id number])Indication: Diabetes mellitus type II, controlled On: :37 Request Planned Procedures MRI KNEE LEFT WO CONTRAST On: 25-Apr-2018 Intent ([id number])By: Fast DO, Chaparrita A Fast Comments: without contrast - L knee DO, Chaparrita A Radiology - Knee - Right - Weight On: 21-Apr-2018 Intent BearingBy: Fast DO, Chaparrita A Fast DO, Chaparrita A Radiology - Knee - Left - Weight On: 21-Apr-2018 Intent BearingBy: Fast DO, Chaparrita A Fast DO, Chaparrita A DRAIN/INJECT MAJOR JOINT OR BURSA On: 13-Mar-2018 Intent ()By: SHONDA Andrade Comments: 2 cc Marcaine lot# [id number] exp: 1 cc Kenalog lot# [id number] exp DRAIN/INJECT MAJOR JOINT OR BURSA On: 07-Feb-2018 Intent ()By: Keri Singh MD Comments: lot no [id number] exp date 2017-12-26 DRAIN/INJECT MAJOR JOINT OR BURSA On: 31-Jan-2018 Intent ()By: Keri Singh MD Comments: Lot#[id number]:5-20-20Cpsue:intra articular Site given:left knee Given By: Dr. Singh ABN signed DRAIN/INJECT MAJOR JOINT OR BURSA On: 24-Jan-2018 Intent ()By: Keri Singh MD Comments: Lot#[id number]: 6-49-40Uowkw:intra artciular Site given:left knee Given By: Dr. Singh ABN signed Euflexxa Echo CompleteBy: Fast DO, Chaparrita A On: 16-Dec-2017 Intent Fast DO, Chaparrita A Flu Vaccine (Quadrivalent) 77897Cw: On: 16-Dec-2017 Intent Fast DO, Chaparrita A Fast DO, Chaparrita A Comments: Lot: [id number]: 10/01/18Site: L dltd, IMDose prefilled syringegiven by: Jamie reviewed and ABN signed Kenalog Injection, 10 mgm On: 03-Oct-2017 Intent (J3301)By: Keri Singh MD Comments: lot: [id number]: 11/20site/route: L knee Cartoid DopplerBy: Fast DO, Chaparrita A On: 12-Sep-2017 Intent Fast DO, Chaparrita A Comments: november DIGITAL TOMOSYNTHESIS OF On: 12-Sep-2017 Intent BREAST ([id number])By: Fast DO Chaparrita A Comments: due november 02 Fast DO, Chaparrita A Kenalog Injection, 10 mgm On: 06-Jun-2017 Intent (J3301)By: Keri Singh MD Comments: bupivacacine 0.5% [id number] exp 09-20 kenalog 40 mg injected in. [id number] 07-21 MRI OF BRAIN WITH AND WITHOUT On: 06-Jun-2017 Intent CONTRAST ([id number])By: Fast DO, Chaparrita A Fast DO, Chaparrita A ELECTROCARDIOGRAM, COMPLETE (ECG) On: 06-Jun-2017 Intent ([id number])By: Fast DO, Chaparrita A Fast Comments: ekg showed normal sinus rhythym, normal axis, no acute st/t wave changes DO, Chaparrita A INFUSION, NORMAL SALINE SOLUTION , On: 10-May-2017 Intent 1000 CC (Special Coverage Comments: 2 liters total Instructions Apply. See MCM: 2048) ([id number])By: Fast DO, Chaparrita A Fast DO, Chaparrita A INFUSION, NORMAL SALINE SOLUTION , On: 10-May-2017 Intent 1000 CC (Special Coverage Comments: lot:[id number]:IV left anticub dose:1000ml given by:eliazar HUMPHREY signedER, ORDER ENTRY Instructions Apply. See MCM: 2048) ([id number])By: Fast DO, Chaparrita A Fast DO, Chaparrita A Radiology - Chest- PA and LatBy: On: 05-May-2017 Intent Keri Singh MD Aerosol Treatment ([id number])By: On: 05-May-2017 Intent Keri Singh MD Radiology - ChestBy: Francisco MANN, On: 05-May-2017 Intent Keri Alonzo Comments: call wet read DRAIN/INJECT MAJOR JOINT OR BURSA On: 28-Feb-2017 Intent ()By: Keri Singh MD Comments: 1 cc Kenelog #[id number] cc Marcaine #[id number] Kenalog Injection, 10 mgm On: 28-Feb-2017 Intent (J3301)By: Keri Singh MD ELECTROCARDIOGRAM, COMPLETE (ECG) On: 10-Jan-2017 Intent (40989)By: Chaparrita Albrecht DO A Fast Comments: ekg showed normal sinus rhythym, normal axis, no acute st/t wave changes Chaparrita WOLFF Flu Vaccine (Quadrivalent) 14068Jz: On: 27-Dec-2016 Intent SHONDA Andrade DRAIN/INJECT MAJOR JOINT OR BURSA On: 20-Aug-2016 Intent ()By: Keri Singh MD DRAIN/INJECT MAJOR JOINT OR BURSA On: 13-Aug-2016 Intent ()By: SHONDA Andrade Comments: lot: [id number]:[id number]:intra articular dose:2ml given by:Dr. Francisco HUMPHREY signedER, ORDER ENTRY injection #3 DOPPLER ULTRASOUND OF RIGHT CAROTID On: 10-Aug-2016 Intent ARTERY ([id number])By: Ambrocio DO Chaparrita A Comments: end of october Fast DO, Chaparrita A DEXA SCAN AXIAL SKELETON (51198)By: On: 10-Aug-2016 Intent Ambrocio DO Chaparrita A Fast DO, Chaparrita A Comments: end of october SCREENING DIGITAL TOMOSYNTHESIS OF On: 10-Aug-2016 Intent BREAST (40222)By: Ambrocio WOLFF Chaparrita A Comments: end of october Fast DO, Chaparrita A DRAIN/INJECT MAJOR JOINT OR BURSA On: 06-Aug-2016 Intent ()By: Keri Singh MD DRAIN/INJECT INTERMED JOINT/BURSA On: 06-Aug-2016 Intent ()By: SHONDA Andrade Comments: lot:[id number]:left knee dose:2mlgiven by:Dr. Francisco HUMPHREY signedER, ORDER ENTRY injection number 2 Venous Doppler - LeftBy: Fast DO, On: 03-Aug-2016 Intent Chaparrita A Fast DO, Chaparrita A Comments: This is set up for August 05 at 11am- spoke with Rina in cv. DRAIN/INJECT INTERMED JOINT/BURSA On: 30-Jul-2016 Intent ()By: Francisco MNAN, Keri Alonzo Comments: lot:[id number]:intra articular left knee dose: 2ml given by: Dr. Francisco Araya LPN injection #1 Radiology - Knee - LeftBy: Fast DO, On: 26-May-2016 Intent Chaparrita A Fast DO, Chaparrita A Flu Vaccine (Quadrivalent) 64391Zm: On: 27-Jan-2016 Intent Fast DO, Chaparrita A Fast DO, Chaparrita A Comments: Lot #:[id number] date:10/01/16mount given:0.5mlRoute: IMSite given: left deltoidGiven by: CARMELINA Hook ADMINISTRATION OF INFLUENZA VIRUS On: 27-Jan-2016 Intent VACCINE (G0008)By: Fast DO, Chaparrita A Fast DO, Chaparrita A DOPPLER ULTRASOUND OF RIGHT CAROTID On: 22-Oct-2015 Intent ARTERY ([id number])By: Fast DO, Chaparrita A Fast DO, Chaparrita A MAMMOGRAM, SCREENING, BOTH BREAST On: 22-Oct-2015 Intent ([id number])By: Fast DO, Chaparrita A Fast DO, Chaparrita A Ultrasound - RenalBy: Fast DO, On: 14-Jul-2015 Intent Chaparrita A Fast DO, Chaparrita A Radiology - Knee - Left - Weight On: 11-Mar-2015 Intent BearingBy: Fast DO, Chaparrita A Fast DO, Chaparrita A Radiology - Knee - Right - Weight On: 11-Mar-2015 Intent BearingBy: Fast DO, Chaparrita A Fast DO, Chaparrita A Flu Vaccine (Quadrivalent) 54511Mh: On: 11-Feb-2015 Intent Fast DO, Chaparrita A Fast DO, Chaparrita A EKG (55307)By: Fast DO, Chaparrita A On: 05-Nov-2014 Intent Fast DO, Chaparrita A Comments: ekg showed normal sinus rhythym, normal axis, no acute st/t wave changes left axis DRAIN/INJECT SMALL JOINT OR BURSA On: 07-Oct-2014 Intent ()By: Keri Singh MD MAMMOGRAM, SCREENING, BOTH BREAST On: 02-Aug-2014 Intent (25581)By: Chaparrita Albrecht DO Comments: meera DOCasea A Cartoid DopplerBy: Ambrocio DO, Chaparrita A On: 02-Aug-2014 Intent Ambrocio WOLFF Chaparrita A DEXA SCAN AXIAL SKELETON (46282)By: On: 09-Apr-2014 Intent Ambrocio DO Chaparrita A Ambrocio DO, Chaparrita A Prevnar 13 (22941)By: Ambrocio WOLFF, On: 30-Jan-2014 Intent Chaparrita Olivia Albrecht DO, Chaparrita A Comments: Lot:[id number]:05/20Dose:0.5Route:imSite:l armGiven By:Jarred signed FLU VAC, SPLIT, >3 YEARS, INTRAMUSC On: 16-Jan-2014 Intent (28527)By: Chaparrita Albrecht DO Comments: Lot #:[id number] date:12/2015Amount given:0.5mlRoute: IMSite given: left deltoidGiven by: CARMELINA Hook DO Chaparrita A ADMINISTRATION OF INFLUENZA VIRUS On: 16-Jan-2014 Intent VACCINE (G0008)By: Chaparrita Albrecht DO, DO Chaparrita A EKG (79896)By: Chaparrita Albrecht DO A On: 17-Oct-2013 Intent Ambrocio WOLFF Chaparrita A Comments: ekg showed normal sinus rhythym, left axis, no acute st/t wave changes Radiology - Chest- PA and LatBy: On: 17-Sep-2013 Intent Ambrocio WOLFF, Chaparrita A Ambrocio DO, Chaparrita A Aerosol Treatment (47604)By: Ambrocio On: 17-Sep-2013 Intent DO Chaparrita A Fast DO, Chaparrita A MRI - BrainBy: Ambrocio WOLFF Chaparrita A On: 22-Jul-2013 Intent Ambrocio WOLFF Chaparrita A Cartoid DopplerBy: Ambrocio DO, Chaparrita A On: 20-Jul-2013 Intent Ambrocio DO, Chaprarita A MAMMOGRAM, SCREENING, BOTH BREASTS On: 20-Jul-2013 Intent ([id number])By: Chaparrita Albrecht DO, DO Chaparrita A Eprescribed prescriptions On: 20-Jul-2013 Intent (G8553)By: Chaparrita Albrecht DO A Ambrocio DO, Chaparrita A Eprescribed prescriptions On: 02-Feb-2013 Intent (G8553)By: Марина Concepcion FLU VAC, SPLIT, >3 YEARS, INTRAMUSC On: 03-Jan-2013 Intent (79871)By: Марина Concepcion Comments: Lot #:[id number] date:mount given:0.5mlRoute: IMSite given: L dltdVIS and ABN signedGiven by: CARMELINA Hook ADMINISTRATION OF INFLUENZA VIRUS On: 03-Jan-2013 Intent VACCINE (G0008)By: Марина Concepcion CT - Abdomen & Pelvis (IV Contrast On: 17-Oct-2012 Intent Needed)By: Chaparrita Albrecht DO Comments: patient will be calling to set up DO, Chaparrita A Eprescribed prescriptions On: 10-Oct-2012 Intent (G8553)By: Марина Concepcion Ear Irrigation (94955)By: [place], On: 13-Jun-2012 Intent Ivy Comments: Ear Irrigation performed on: right earAmount/color removed cerumen: light brown, small amount removedOUtcome:Pt toleratedUsed wax curettes Wax Currettes (57513)By: Rome, On: 13-Jun-2012 Intent Ivy PNEUM VAC ADLT/IMUMNOSPR, SBC/INTRM On: 13-Jun-2012 Intent (17591)By: Chaparrita Albrecht DO Comments: Lot:[id number]:09/09/13Dose:0.5mLRoute:IMSite:L armGiven By:BHUMI signed DO, Chaparrita A EKG (32611)By: Ambrocio WOLFF Chaparrita A On: 13-Jun-2012 Intent Ambrocio DO Chaparrita A Comments: ekg showed normal sinus rhythym, normal axis, no acute st/t wave changes MRI - BrainBy: Ambrocio WOLFF Chaparrita A On: 13-Jun-2012 Intent Ambrocio DO Chaparrita A Comments: yonatan ADMINISTRATION OF PNEUMOCOCCAL On: 13-Jun-2012 Intent VACCINE (G0009)By: Case Albrecht DOa A Ambrocio DO, Chaparrita A Eprescribed prescriptions On: 13-Jun-2012 Intent (G8553)By: Марина Concepcion MAMMOGRAM, SCREENING, BOTH BREASTS On: 28-Dec-2011 Intent (02422)By: Fast DO, Chaparrita A Fast DO, Chaparrita A DXA, BONE DENSITY, AXIAL SKELETON On: 28-Dec-2011 Intent (35533)By: Fast DO, Chaparrita A Fast DO, Chaparrita A MRI - BrainBy: Fast DO, Chaparrita A On: 28-Dec-2011 Intent Fast DO, Chaparrita A Comments: end of jan Cartoid DopplerBy: Fast DO, Chaparrita A On: 28-Dec-2011 Intent Fast DO, Chaparrita A Comments: jan Ultrasound - PelvisBy: Fast DO, On: 28-Dec-2011 Intent Chaparrita A Fast DO, Chaparrita A FLU VAC, SPLIT, >3 YEARS, INTRAMUSC On: 28-Dec-2011 Intent (10041)By: Марина Concepcion Comments: Lot #:[id number] date:mount given:0.5mlRoute: IMSite given: left deltoidGiven by: CARMELINA Hook ADMINISTRATION OF INFLUENZA VIRUS On: 28-Dec-2011 Intent VACCINE (G0008)By: Марина Concepcion Aerosol Treatment ([id number])By: Ciesa On: 30-Nov-[address] - Abdomen & PelvisBy: Fast DO, On: 21-Sep-2011 Intent Chaparrita A Fast DO, Chaparrita A Comments: with special cuts through the kidney- october EKG (51683)By: Марина Concepcion On: 15-Jun-2011 Intent Comments: ekg showed normal sinus rhythym, normal axis, no acute st/t wave changes MRI - BrainBy: Fast DO, Chaparrita A On: 15-Jun-2011 Intent Fast DO, Chaparrita A Comments: july MRI - Other (IV Contrast Needed)By: On: 17-Mar-2011 Intent Ashley Ordaz Comments: Kidney MRI - Brain (IV Contrast Needed)By: On: 18-Feb-2011 Intent Fast DO, Chaparrita A Fast DO, Chaparrita A Comments: 6 week MRI Brain follow up per Dr. Albrecht MRI - Shoulder(s) - LeftBy: Francisco On: 18-Feb-2011 Intent Keri MANN Radiology - Shoulder - LeftBy: Ambrocio On: 17-Feb-2011 Intent DO, Chaparrita A Fast DO, Chaparrita A Comments: call wet read to Dr. Singh CT - Chest (IV Contrast Needed)By: On: 26-Jan-[address] - Abdomen & Pelvis (IV Contrast On: 26-Jan-2011 Intent Needed)By: Марина Concepcion MRI - Brain (IV Contrast Needed)By: On: 19-Jan-2011 Intent Fast DO, Chaparrita A Fast DO, Chaparrita A Comments: with and without contrast CT - Brain/Head (IV Contrast On: 19-Jan-2011 Intent Needed)By: Fast DO, Chaparrita A Fast Comments: Call results to Dr. Albrecht @ [phone] as soon as resulted please. DO, Chaparrita A Eprescribed prescriptions On: 11-Jan-2011 Intent (G8553)By: Fast DO, Chaparrita A Fast DO, Chaparrita A MAMMOGRAM, SCREENING, BOTH BREASTS On: 11-Jan-2011 Intent ([id number])By: Fast DO, Chaparrita A Fast DO, Chaparrita A CT - Sinuses CompleteBy: Fast DO, On: 11-Jan-2011 Intent Chaparrita A Fast DO, Chaparrita A Cartoid DopplerBy: Fast DO, Chaparrita A On: 11-Jan-2011 Intent Fast DO, Chaparrita A ADMINISTRATION OF INFLUENZA VIRUS On: 11-Jan-2011 Intent VACCINE (G0008)By: Марина Concepcion FLU VAC, SPLIT, >3 YEARS, INTRAMUSC On: 11-Jan-2011 Intent ([id number])By: Марина Concepcion Eprescribed prescriptions On: 12-Oct-2010 Intent (G8553)By: Ambrocio DO, Chaparrita A Fast DO, Chaparrita A Renal DopplerBy: Fast DO, Chaparrita A On: 12-Oct-2010 Intent Fast DO, Chaparrita A Cartoid DopplerBy: Fast DO, Chaparrita A On: 12-Oct-2010 Intent Fast DO, Chaparrita A Comments: sept TDAP VACCINE >7 IM ([id number])By: On: 13-May-2010 Intent Helena Tineo LPN Comments: Lot #[id number]-8/25/13Site-left deltoidgiven by:[facility] EKG (01963)By: Марина Concepcion On: 13-May-2010 Intent Comments: ekg showed normal sinus rhythym, normal axis, no acute st/t wave changes Aerosol Treatment (99490)By: Charlene On: 22-Dec-2009 Intent [facility] Johanna Espinal DopplerBy: Fast DO, Chaparrita A On: 01-Dec-2009 Intent Fast DO, Chaparrita A MAMMOGRAM, SCREENING, BOTH BREASTS On: 01-Dec-2009 Intent ([id number])By: Fast DO, Chaparrita A Fast DO, Chaparrita A DXA, BONE DENSITY, AXIAL SKELETON On: 01-Dec-2009 Intent ([id number])By: Fast DO, Chaparrita A Fast DO, Chaparrita A Ultrasound - SpleenBy: Fast DO, On: 17-Jun-2009 Intent Chaparrita A Fast DO, Chaparrita A EKG (53184)By: Марина Concepcion On: 10-Mar-2009 Intent Comments: ekg showed normal sinus rhythym, normal axis, no acute st/t wave changes FLU VAC, SPLIT, >3 YEARS, INTRAMUSC On: 09-Jan-2009 Intent ([id number])By: Stacy Jorge Comments: Lot #[id number]-7/2010Site-left deltoidDose0.5mlgiven by Marycarmen Jorge LPN ADMINISTRATION OF INFLUENZA VIRUS On: 09-Jan-2009 Intent VACCINE (G0008)By: Stacy Jorge MAMMOGRAM, SCREENING, BOTH BREASTS On: 04-Dec-2008 Intent ([id number])By: Fast DO, Chaparrita A Fast DO, Chaparrita A MAMMOGRAM, SCREENING, BOTH BREASTS On: 03-Sep-2008 Intent ([id number])By: Fast DO, Chaparrita A Fast DO, Chaparrita A FLU VAC, SPLIT, >3 YEARS, INTRAMUSC On: 16-Jan-2008 Intent ([id number])By: Janet Scherer RN Comments: Lot #: [id number] date: 09/10Amount given: 0.5 mlRoute: IMSite given: Left deltoidGiven by: Olivia Bell LPN ADMINISTRATION OF INFLUENZA VIRUS On: 16-Jan-2008 Intent VACCINE (G0008)By: Janet Scherer RN EKG ([id number])By: Fast DO, Chaparrita A On: 29-Aug-2007 Intent Fast DO, Chaparrita A Comments: done km ADMINISTRATION OF PNEUMOCOCCAL On: 29-Aug-2007 Intent VACCINE (G0009)By: Fast DO, Chaparrita A Fast DO, Chaparrita A PNEUM VAC ADLT/IMUMNOSPR, SBC/INTRM On: 29-Aug-2007 Intent (28993)By: Fast DO, Chaparrita A Fast Comments: 0.5cc given im lt arm [id number] exp 02-13-08 DO, Chaparrita A DXA, BONE DENSITY, AXIAL SKELETON On: 29-Aug-2007 Intent (15955)By: Fast DO, Chaparrita A Fast DO, Chaparrita A MAMMOGRAM, SCREENING, BOTH BREASTS On: 29-Aug-2007 Intent ([id number])By: Fast DO, Chaparrita A Fast DO, Chaparrita A Planned Medications INFUSION, NORMAL SALINE SOLUTION , 1000 CC Ordered: 10-May-2017 Pending Fast DO, Chaparrita A Fast DO, Chaparrita A INFUSION, NORMAL SALINE SOLUTION , 1000 CC Ordered: 10-May-2017 Pending Fast DO, Chaparrita A Fast DO, Chaparrita A INJECTION, TRIAMCINOLONE ACETONIDE, NOT OTHERWISE SPECIFIED, 10 MG Ordered: 28-Feb-2017 Pending Keri Singh MD INJECTION, TRIAMCINOLONE ACETONIDE, NOT OTHERWISE SPECIFIED, 10 MG Ordered: 06-Jun-2017 Pending Keri Singh MD INJECTION, TRIAMCINOLONE ACETONIDE, NOT OTHERWISE SPECIFIED, 10 MG Ordered: 03-Oct-2017 Pending Keri Singh MD Instructions Name Dates Details Diabetes mellitus type II, controlled : How to access health information online - Detail Indication: Diabetes mellitus type II, controlled Diabetes mellitus type II, controlled : How to access health information online Indication: Diabetes mellitus type II, controlled Diabetes mellitus type II, controlled : Patient Instructions Indication: Diabetes mellitus type II, controlled Osteoarthritis of left knee, unspecified osteoarthritis type : How to access health information online Indication: Osteoarthritis of left knee, unspecified osteoarthritis type Osteoarthritis of left knee, unspecified osteoarthritis type : How to access health information online - Detail Indication: Osteoarthritis of left knee, unspecified osteoarthritis type Osteoarthritis of left knee, unspecified osteoarthritis type : Patient Instructions Indication: Osteoarthritis of left knee, unspecified osteoarthritis type Osteoarthritis of left knee, unspecified osteoarthritis type : How to access health information online Indication: Osteoarthritis of left knee, unspecified osteoarthritis type Osteoarthritis of left knee, unspecified osteoarthritis type : How to access health information online - Detail Indication: Osteoarthritis of left knee, unspecified osteoarthritis type Osteoarthritis of left knee, unspecified osteoarthritis type : Patient Instructions Indication: Osteoarthritis of left knee, unspecified osteoarthritis type Diabetes mellitus type II, controlled : How to access health information online Indication: Diabetes mellitus type II, controlled Diabetes mellitus type II, controlled : How to access health information online - Detail Indication: Diabetes mellitus type II, controlled Diabetes mellitus type II, controlled : Patient Instructions Indication: Diabetes mellitus type II, controlled Depression : How to access health information online Indication: Depression Depression : How to access health information online - Detail Indication: Depression Depression : Patient Instructions Indication: Depression BMI 27.0-27.9,adult : How to access health information online Indication: BMI 27.0-27.9,adult BMI 27.0-27.9,adult : How to access health information online - Detail Indication: BMI 27.0-27.9,adult BMI 27.0-27.9,adult : Patient Instructions Indication: BMI 27.0-27.9,adult BMI 27.0-27.9,adult : How to access health information online Indication: BMI 27.0-27.9,adult BMI 27.0-27.9,adult : How to access health information online - Detail Indication: BMI 27.0-27.9,adult BMI 27.0-27.9,adult : Patient Instructions Indication: BMI 27.0-27.9,adult BMI 28.0-28.9,adult : How to access health information online Indication: BMI 28.0-28.9,adult BMI 28.0-28.9,adult : How to access health information online - Detail Indication: BMI 28.0-28.9,adult BMI 28.0-28.9,adult : Patient Instructions Indication: BMI 28.0-28.9,adult Diabetes mellitus type II, controlled : How to access health information online Indication: Diabetes mellitus type II, controlled Diabetes mellitus type II, controlled : How to access health information online - Detail Indication: Diabetes mellitus type II, controlled Diabetes mellitus type II, controlled : Patient Instructions Indication: Diabetes mellitus type II, controlled Chest pain : How to access health information online Indication: Chest pain Chest pain : How to access health information online - Detail Indication: Chest pain Chest pain : Patient Instructions Indication: Chest pain Diabetes mellitus type II, controlled : How to access health information online Indication: Diabetes mellitus type II, controlled Diabetes mellitus type II, controlled : How to access health information online - Detail Indication: Diabetes mellitus type II, controlled Diabetes mellitus type II, controlled : Patient Instructions Indication: Diabetes mellitus type II, controlled Osteoarthritis of left knee, unspecified osteoarthritis type : How to access health information online Indication: Osteoarthritis of left knee, unspecified osteoarthritis type Osteoarthritis of left knee, unspecified osteoarthritis type : How to access health information online - Detail Indication: Osteoarthritis of left knee, unspecified osteoarthritis type Osteoarthritis of left knee, unspecified osteoarthritis type : Patient Instructions Indication: Osteoarthritis of left knee, unspecified osteoarthritis type Diabetes mellitus type II, controlled : How to access health information online Indication: Diabetes mellitus type II, controlled Diabetes mellitus type II, controlled : How to access health information online - Detail Indication: Diabetes mellitus type II, controlled Diabetes mellitus type II, controlled : Patient Instructions Indication: Diabetes mellitus type II, controlled BMI 30.0-30.9,adult : How to access health information online Indication: BMI 30.0-30.9,adult BMI 30.0-30.9,adult : How to access health information online - Detail Indication: BMI 30.0-30.9,adult BMI 30.0-30.9,adult : Patient Instructions Indication: BMI 30.0-30.9,adult Epistaxis : Patient Instructions Indication: Epistaxis Acute maxillary sinusitis, recurrence not specified : How to access health information online Indication: Acute maxillary sinusitis, recurrence not specified Acute maxillary sinusitis, recurrence not specified : How to access health information online - Detail Indication: Acute maxillary sinusitis, recurrence not specified Acute maxillary sinusitis, recurrence not specified : Patient Instructions Indication: Acute maxillary sinusitis, recurrence not specified Diabetes mellitus type II, controlled : How to access health information online Indication: Diabetes mellitus type II, controlled Diabetes mellitus type II, controlled : How to access health information online - Detail Indication: Diabetes mellitus type II, controlled Diabetes mellitus type II, controlled : Patient Instructions Indication: Diabetes mellitus type II, controlled Nonsmoker : How to access health information online Indication: Nonsmoker Nonsmoker : How to access health information online - Detail Indication: Nonsmoker Nonsmoker : Patient Instructions Indication: Nonsmoker Diabetes mellitus type II, controlled : How to access health information online Indication: Diabetes mellitus type II, controlled Diabetes mellitus type II, controlled : How to access health information online - Detail Indication: Diabetes mellitus type II, controlled Diabetes mellitus type II, controlled : Patient Instructions Indication: Diabetes mellitus type II, controlled Hypertension, benign : How to access health information online Indication: Hypertension, benign Hypertension, benign : How to access health information online - Detail Indication: Hypertension, benign Hypertension, benign : Patient Instructions Indication: Hypertension, benign Diabetes mellitus type II, controlled : How to access health information online Indication: Diabetes mellitus type II, controlled Diabetes mellitus type II, controlled : How to access health information online - Detail Indication: Diabetes mellitus type II, controlled Diabetes mellitus type II, controlled : Patient Instructions Indication: Diabetes mellitus type II, controlled Depression : How to access health information online Indication: Depression Depression : How to access health information online - Detail Indication: Depression Depression : Patient Instructions Indication: Depression Anxiety : How to access health information online Indication: Anxiety Anxiety : How to access health information online - Detail Indication: Anxiety Anxiety : Patient Instructions Indication: Anxiety Cerumen Impaction : Patient Instructions Indication: Cerumen Impaction Diabetes mellitus type II, controlled : How to access health information online Indication: Diabetes mellitus type II, controlled Diabetes mellitus type II, controlled : How to access health information online - Detail Indication: Diabetes mellitus type II, controlled Diabetes mellitus type II, controlled : Patient Instructions Indication: Diabetes mellitus type II, controlled Diabetes mellitus type II, controlled : Patient Instructions Indication: Diabetes mellitus type II, controlled Diabetes mellitus type II, controlled : Patient Instructions Indication: Diabetes mellitus type II, controlled Diabetes mellitus type II, controlled : Patient Instructions Indication: Diabetes mellitus type II, controlled Diabetes mellitus type II, controlled : How to access health information online Indication: Diabetes mellitus type II, controlled Diabetes mellitus type II, controlled : How to access health information online - Detail Indication: Diabetes mellitus type II, controlled Diabetes mellitus type II, controlled : Patient Instructions Indication: Diabetes mellitus type II, controlled Cough : Patient Instructions Indication: Cough Diabetes mellitus type II, controlled : Patient Instructions Indication: Diabetes mellitus type II, controlled Diabetes mellitus type II, controlled : Patient Instructions Indication: Diabetes mellitus type II, controlled Anxiety : Patient Instructions Indication: Anxiety Diabetes mellitus type II, controlled : Patient Instructions Indication: Diabetes mellitus type II, controlled Diabetes mellitus type II, controlled : Patient Instructions Indication: Diabetes mellitus type II, controlled Hypertension, benign : Patient Instructions Indication: Hypertension, benign Encounters Phone Encounter On: 25-Apr-2018 10:03 Encounter Diagnosis: Localized osteoarthritis of left knee End: 25-Apr-2018 10:21 [facility] Phone Encounter On: 21-Apr-2018 10:11 Encounter Diagnosis: Knee pain, bilateral End: 21-Apr-2018 10:18 [facility] Phone Encounter On: 11-Apr-2018 9:53 Encounter Diagnosis: Cough End: 11-Apr-2018 10:05 [facility] Office Visit On: 22-Mar-2018 10:49 Encounter Reason: Follow up for chronic medical issues - The patient feels well with minor complaints (a lot of anxiety this time of year), has decreased energy level (ok during the day, doesn't have a lot of stuff going End: 23-Mar-2018 21:07 on in her life right now) and is sleeping well. Patient has been compliant with instructions. Current medication use: no side effects, compliant with dosing regimen and considered effective by patient. Patient sleeps 7 hours per night. Impact of disease: emotional impact-mild. Nutrition: balanced diet and supplemental vitamins. The medical issues the patient is following up for include blood sugar is sues, cardiac issues, depression (anxiety ), high blood pressure, high cholesterol, kidney problems, osteoporosis/osteopenia and other (DDD ). Note for Follow up for chronic medical issues: no change in swain and bp is good and weigh tdown toelrating trulicity and sugar better and knee improved with shot- we reviewed labs- and she still feel lonely but looking forward to seeing grandchildren for luís- -uses lorazepam prn anxiety and is helping , [ADDITIONAL REASON] Follow up tests - Date: (03/06 blood work). Encounter Diagnosis: Nonsmoker, BMI 27.0-27.9,adult, Diabetes mellitus type II, controlled, Hypertension, benign, Other and unspecified hyperlipidemia (272.4), Chronic kidney disease, stage 3, Vitamin D deficiency [facility] Office Visit On: 13-Mar-2018 15:07 Encounter Diagnosis: Localized osteoarthritis of left knee End: 21-Mar-2018 7:41 [facility] Phone Encounter On: 06-Mar-2018 8:59 Encounter Diagnosis: Chronic kidney disease, stage 3 End: 06-Mar-2018 9:00 [facility] Phone Encounter On: 06-Mar-2018 8:51 Encounter Diagnosis: Chronic kidney disease, stage 3 End: 06-Mar-2018 8:56 [facility] Phone Encounter On: 20-Feb-2018 15:38 Encounter Diagnosis: Diabetes mellitus type II, controlled End: 20-Feb-2018 15:43 [facility] Office Visit On: 07-Feb-2018 8:05 Encounter Diagnosis: Localized osteoarthritis of left knee End: 09-Feb-2018 13:08 [facility] Office Visit On: 31-Jan-2018 9:02 Encounter Reason: Injections - The medication the patient is here to receive is other (Euflexxa injection number 2).Encounter Diagnosis: Osteoarthritis of left knee, unspecified osteoarthritis type, Nonsmoker End: 31-Jan-2018 15:06 [facility] Office Visit On: 24-Jan-2018 11:00 Encounter Diagnosis: Osteoarthritis of left knee, unspecified osteoarthritis type End: 26-Jan-2018 14:47 [facility] Office Visit On: 16-Dec-2017 9:31 Encounter Reason: Follow up tests - Date: (12/07 blood work)., [ADDITIONAL REASON] Follow up for chronic medical issues - The patient feels well with minor complai End: 18-Dec-2017 20:57 nts (physically feeling ok, has some headaches and aches and pains from arthritis. Went off the aricept), has decreased energy level and is sleeping well. Patient has been compliant with instructions. C urrent medication use: experiencing side effects (went off the aricept), compliant with dosing regimen and considered effective by patient. Patient sleeps 7 hours per night. Impact of disease: emotional impact-mild. Nutrition: balanced diet and supplemental vitamins. The medical issues the patient is following up for include blood sugar issues, cardiac issues, depression (anxiety ), high blood pressur e, high cholesterol, kidney problems, osteoporosis/osteopenia and other (DDD ). Note for Follow up for chronic medical issues: bp is good and she sees Dr Santana in a month- not suicidal but still having issues with trying to find ashlyn- she doing lots of work trying to do self help- she went back off aricept gave her diarrhea- she has no other trouble getting lost- we discussed that most of her issues ri ght now is loniliness and that most likely a med wont help that- she is trying to meet new people and be involved in the [employer] 0 bps are good and sugar looking better she cut out ice cream- she could u se hydrocodone refill has been long time she uses sparingly if bad day of back pain Encounter Diagnosis: Nonsmoker, BMI 28.0-28.9,adult, Diabetes mellitus type II, controlled, Chronic kidney disease, stage 3, Carotid stenosis, Mixed hyperlipidemia, Need for prophylactic vaccination and inoculation against influenza (Renamed from Need for immunization against influenza), Vitamin D deficiency, Other intervertebral disc degeneration, lumbar region, Aortic valve disorder [facility] Phone Encounter On: 17-Oct-2017 8:35 Encounter Diagnosis: Vitamin D deficiency, Chronic kidney disease, stage 3 End: 17-Oct-2017 8:39 [facility] Office Visit On: 03-Oct-2017 10:35 Encounter Diagnosis: Knee pain, unspecified laterality End: 03-Oct-2017 13:21 [facility] Office Visit On: 12-Sep-2017 8:56 Encounter Reason: Follow up tests - Date: (09/06/17 blood work)., [ADDITIONAL REASON] Follow up for chronic medical issues - The patient feels well with minor complai End: 12-Sep-2017 10:01 nts (finally feeling better after being sick. Had a terrible month. Still feeling down after Eddie , fighting with depression. States she feels the vybrid makes her feel like a zombie sometimes. Wants to do the test for depression medication), has decreased energy level and is sleeping well. Patient has been compliant with instructions. Current medication use: no side effects, compliant with dosing regimen and considered effective by patient. Patient sleeps 7 hours per night. Impact of disease: emotional impact-mild. Nutrition: balanced diet and supplemental vitamins. The medical issues the beckyen t is following up for include blood sugar issues, cardiac issues, depression (anxiety ), high blood pressure, high cholesterol, kidney problems, osteoporosis/osteopenia and other (DDD ). Note for Martinez mason up for chronic medical issues: she has been working with [employer] and trying to work on that- she got rid of respiratory infection but was sick for weeks and was on pred so her sugar up and chol up a bit- trying to add protein shakes drink more water- she is starting back at [facility]- diarrhea resolved- we did talk about going back on aricept or something else for memory but at this point she not feel she want too Encounter Diagnosis: Nonsmoker, BMI 27.0-27.9,adult, Diabetes mellitus type II, controlled, Depression, Encounter for screening mammogram for breast cancer (Renamed from Encounter for screening mammogram for malignant neoplasm of breast), Colon polyps, Anemia, chronic renal failure, stage 3 (moderate), Other and unspecified hyperlipidemia (272.4), Hypertension, benign, Memory loss, Vitamin D deficiency, Carotid stenosis [facility] Office Visit On: 11-Jul-2017 9:19 Encounter Reason: Diarrhea - Adult - The last clinic visit was 1 month(s) ago. Symptoms include diarrhea and abdominal cramps. The stools are described as watery. Onset was sudden 1 month(s) ago. Onset followed new medic End: 11-Jul-2017 9:52 ation (she stopped the Tumeric and probiotic, did not change, stopped aricept and made no difference). The symptoms occur after eating and mostly during the daytime. The episodes occur 3 time(s) a day. This is described as moderate in severity and unchanged. Symptoms are exacerbated by eating. Symptoms are relieved by antidiarrheals. Note for Diarrhea: she is going back and forth constipation and di arrhea- and thought maybe was aricept tried off not that 2 hours after meal gets crampy and watery stool- -takes powdered citracel daily- she tried off probiotic and tumeric and that didnt make differen ce- no fever- appetite is ok no blood- she thinks she would have diarrhea all the time if didnt take immodium - she thinks this why constipation-is on daily doxy for her eyes - for rosacea of eye- she not think it makes alot of difference Encounter Diagnosis: BMI 27.0-27.9,adult, Nonsmoker, Chronic diarrhea [facility] Lab Order On: 28-Jun-2017 12:51 Encounter Diagnosis: Hypertension, benign End: 28-Jun-2017 12:53 [facility] Office Visit On: 06-Jun-2017 11:39 Encounter Diagnosis: Vitamin D deficiency, Anemia, chronic renal failure, stage 3 (moderate) End: 06-Jun-2017 11:43 [facility] Office Visit On: 06-Jun-2017 8:57 Encounter Reason: Physical female exam - General health: feels well with minor complaints (still dealing with the loss of Eddie and living alone.Has noticed she has lost interest in a lot of things she use to find pleasure End: 10-Jun-2017 14:37 in.), has good energy level (hard to find motivation) and is sleeping well (gets up a lot). The patient's appetite is increased (feels hungry a lot, thinks maybe related to meds). Nutrition: inappropri ate diet. Exercises 0 days per week. Sleeps on average 8 hours per night. Elimination problems include urinary frequency (taking myrbetriq). Safety measures include appropriate use of safety belts and h ome smoke detectors. Current emotional problems include anxiety, depression and sleep disturbances. screening, colonoscopy and screening, visual acuity (yearly). Note for Physical exam: [facility] :- a month or so ago she noticed that she had episode where went to [facility] and she couldnt remember where she was- and happened one other time where she didnt recognize the roads- sister had alzheimer s- weight down because was sick- but coming back up- she hasnt done counseling with hospice has been thru before- she lonely- not necessarily unhappy- she doing self help she is singing with [employer]- -rodriguez gars are all in low 100s-130- going to [email or web address] for a month next monthEncounter Diagnosis: Nonsmoker, BMI 27.0-27.9,adult, [facility] EXAM, Colon polyps, Memory loss, Diabetes mellitus type II, controlled, Chronic kidney disease, stage 3, Mixed hyperlipidemia, Other and unspecified hyperlipidemia (272.4), Carotid stenosis, Meningioma, cerebral, Nocturia, Knee pain, unspecified laterality [facility] Office Visit On: 10-May-2017 11:00 Encounter Reason: Follow up acute care visit - The patient does not feel well and worsening (stil having all same symptoms, some diarrhea now but could be from the antibiotic so stopped taking today. Coughing up clear mu End: 10-May-2017 13:32 cus, some headache and sinus pressure, L ear clogged. Running/stuffy nose). Patient has been compliant with instructions. Current medication use: experiencing side effects. Note for Follow up acute car e visit: cough improved but not gone not fever now but did have one - ear now bothering her and hard to hear on left- still draiange-still some cough frm bronchials- laying down the problem- no nuase a not great appetitelots of watery diarrhea weak tired- drainage is clear talked about using nasal sprayEncounter Diagnosis: Nonsmoker, BMI 28.0-28.9,adult, Diarrhea, Dehydration, ETD (eustachian tube dysfunction), Sinus drainage, COPD with acute exacerbation (Renamed from Acute exacerbation of chronic obstructive airways disease) [facility] Office Visit On: 05-May-2017 9:17 Encounter Diagnosis: Cough (786.2), BMI 28.0-28.9,adult End: 05-May-2017 14:13 [facility] Phone Encounter On: 05-May-2017 9:16 Encounter Diagnosis: Cough (786.2) End: 05-May-2017 9:17 [facility] Office Visit On: 28-Feb-2017 14:36 Encounter Diagnosis: Shoulder pain (719.41) End: 03-Mar-2017 12:36 [facility] Office Visit On: 28-Feb-2017 13:56 Encounter Diagnosis: Shoulder pain (719.41) End: 28-Feb-2017 14:01 [facility] Office Visit On: 22-Feb-2017 12:47 Encounter Reason: Follow up for chronic medical issues - The patient feels well with minor complaints, has good energy level and is sleeping well. Patient has been compliant with instructions. Current medication use: no End: 22-Feb-2017 21:09 side effects, compliant with dosing regimen and considered effective by patient. Patient sleeps 7 hours per night. Impact of disease: emotional impact-mild. Nutrition: balanced diet and supplemental vit amins. The medical issues the patient is following up for include blood sugar issues, cardiac issues, depression (anxiety ), high blood pressure, high cholesterol, kidney problems, osteoporosis/osteopen ia and other (DDD ). Note for Follow up for chronic medical issues: Still has her days of good and bad. Trying to stay occupied.-- bp great has to switch byetta and her margarita- just saw dr santana and ally ys are good and had eye exam and no more chest pain off doxy- mood acceptable for what she going thru with loss of er significant other - and swain pattern hasnt changed- no subclavian stenosis sx- knee been better with shots- sleepign well, [ADDITIONAL REASON] Follow up, Laboratory Test Results - Date: (02/09/17). 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 The pain is located in the substernal area and epigastrium. The pain radiates to the neck and left arm. The patient describes the pain as aching and pressure-li End: 10-Jan-2017 15:46 ke. Onset was sudden 5 day(s) ago. Note for Chest pain: not reproducible- significant other last week- tightness- alot of tension- - bp is good- exertion no change it - food doesnt affect it- felt maybe like anxiety upset stomach- father passed of mi- he was 60- no cough or wheeze- not sob- taking doxycycline for 2 weeksEncounter Diagnosis: BMI 29.0-29.9,adult, Nonsmoker, Chest pain, Esophageal reflux, Anxiety (300.00) [facility] Nurse Visit On: 27-Dec-2016 14:46 Encounter Diagnosis: Need for prophylactic vaccination and inoculation against influenza (Renamed from Need for immunization against influenza) End: 27-Dec-2016 14:48 [facility] Office Visit On: 16-Nov-2016 12:56 Encounter Reason: Follow up for chronic medical issues - The patient feels well with minor complaints (stress with boyfirend dying, being alone and tugged in every direction), has decreased energy level and is sleeping w End: 16-Nov-2016 22:16 ell (off and on). Patient has been compliant with instructions. Current medication use: no side effects, compliant with dosing regimen and considered effective by patient. Patient sleeps 7 (and some nig hts only gets 4 to 5) hours per night. Impact of disease: emotional impact-moderate. Nutrition: inappropriate diet and supplemental vitamins. The medical issues the patient is following up for include b lood sugar issues, cardiac issues, depression (anxiety ), high blood pressure, high cholesterol, kidney problems, osteoporosis/osteopenia and other (DDD ). Note for Follow up for chronic medical issues : Pt would like to try something again for her overactive bladder. Getting up a lot again at hs and disrupts her sleep. weigt down stress with Eddie and bp is good she joined [employer] sugar up bit doi ng ice cream-the bone density reviewed little thinner she not exercising routienly until just recent at [facility] and sees kidney doc next week and leg swelling better and so is knee with euflexxa- - she likes viitahminad- expected grieving, [ADDITIONAL REASON] Follow up, Laboratory Test Results - Date: (11/10/16). Encounter Diagnosis: Diabetes mellitus type II, controlled, Nonsmoker, BMI 29.0- 29.9,adult, Chronic kidney disease, stage 3, Mixed hyperlipidemia, Anxiety (300.00), Hypertension, benign, Carotid stenosis, asymptomatic, right, Osteopenia (733.90), Nocturia [facility] Office Visit On: 20-Aug-2016 9:47 Encounter Diagnosis: Localized osteoarthritis of left knee End: 20-Aug-2016 9:50 [facility] Office Visit On: 13-Aug-2016 14:13 Encounter Diagnosis: Osteoarthritis of left knee, unspecified osteoarthritis type End: 18-Aug-2016 21:08 [facility] Office Visit On: 10-Aug-2016 13:24 Encounter Reason: Follow up for chronic medical issues - The patient feels well with minor complaints ( stressed with everything going on at home with her boyfriend. ), has decreased energy level and is sleeping well. Pa End: 10-Aug-2016 22:08 tient has been compliant with instructions. Current medication use: no side effects, compliant with dosing regimen and considered effective by patient. Patient sleeps 7 (and some nights only gets 4 to 5 ) hours per night. Impact of disease: emotional impact-moderate. Nutrition: inappropriate diet and supplemental vitamins. The medical issues the patient is following up for include blood sugar issues, c ardiac issues, depression (anxiety ), high blood pressure, high cholesterol, kidney problems, osteoporosis/osteopenia and other (DDD ). Note for Follow up for chronic medical issues: alot of stress maribel cordelia in hospice - going to skilled nursing end of month- too much to care for him- she using ativan couple times a week - her bp is good- the euflexa is helping her knee- her weight up- she getting rid of ice cream and working on diet aain chol great sugar stable bp is good, [ADDITIONAL REASON] Follow up, Laboratory Test Results - Date: (08/03/16). 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, Depression [facility] Office Visit On: 06-Aug-2016 8:00 Encounter Diagnosis: Osteoarthritis of left knee, unspecified osteoarthritis type End: 06-Aug-2016 11:27 [facility] Phone Encounter On: 03-Aug-2016 9:00 Encounter Diagnosis: Chronic kidney disease, stage 3 End: 03-Aug-2016 9:05 [facility] Phone Encounter On: 03-Aug-2016 8:55 Encounter Diagnosis: Leg pain, posterior, left End: 03-Aug-2016 8:59 [facility] Phone Encounter On: 03-Aug-2016 8:27 Encounter Diagnosis: Cold feeling End: 03-Aug-2016 8:31 [facility] Office Visit On: 30-Jul-2016 11:54 Encounter Diagnosis: Osteoarthritis of left knee, unspecified osteoarthritis type End: 30-Jul-2016 12:10 [facility] Phone Encounter On: 26-May-2016 16:27 Encounter Diagnosis: Knee pain, unspecified laterality End: 26-May-2016 16:32 [facility] Office Visit On: 04-May-2016 12:44 Encounter Reason: Follow up for chronic medical issues - The patient feels well with minor complaints and has decreased energy level. Patient has been compliant with instructions. Current medication use: no side effects, End: 04-May-2016 14:15 compliant with dosing regimen and considered effective by patient. Patient sleeps 7 hours per night. Impact of disease: emotional impact-moderate. Nutrition: balanced diet and supplemental vitamins. Th e medical issues the patient is following up for include blood sugar issues, cardiac issues, depression (anxiety ), high blood pressure, high cholesterol, kidney problems, osteoporosis/osteopenia and ot her (DDD ). Note for Follow up for chronic medical issues: knee still botherig her after fall- but doesnt want to xray as not going to doing anything with it- she got injection from [facility]- sinus headac hes been worse- not think brain tumor changed that headache not different-bp is good- no more nosebleeds got cauterized in er- then ent cauterized more- her mood pretty good considering sisrahuler passed a nd boyfriend in hospice- she does have anxiety using ativan prn and helps- no rotuine gerd and breathing good with symbicortEncounter Diagnosis: BMI 30.0-30.9,adult, Nonsmoker, Diabetes mellitus type II, controlled, Hypertension, benign, Mixed hyperlipidemia, Chronic sinusitis (473.9), Gastroesophageal reflux disease without esophagitis, Depression, Memory loss, Chronic kidney disease, stage 3, Family history of Alzheimer's disease (V17.2), Anxiety (300.00) [facility] Office Visit On: 20-Apr-2016 11:16 Encounter Reason: Epistaxis - Symptoms include bleeding from the nostril(s). Bleeding is noted from the left nostril. The symptoms occur intermittently. The episodes occur daily. Symptoms are relieved by direct pressure End: 20-Apr-2016 22:15 to the nose. Note for Epistaxis: has been intermittently several times over the wekend using flonase- has large clots today and cant get to stop- - with cold and pressure Encounter Diagnosis: Epistaxis [facility] Lab Order On: 13-Apr-2016 9:13 Encounter Diagnosis: Chronic kidney disease, stage 3 End: 13-Apr-2016 9:18 [facility] Office Visit On: 30-Jan-2016 8:15 Encounter Reason: Cold Symptoms - Symptoms include nasal congestion, runny nose, sore throat, hoarseness, productive cough, facial pressure, facial pain and headache. Onset was sudden 3 day(s) ago. The symptoms occur con End: 30-Jan-2016 8:44 stantly. The patient describes this as worsening. Associated symptoms include plugged ear(s), ear pain and swollen lymph nodes, while associated symptoms do not include wheezing, shortness of breath, na usea, vomiting, diarrhea, fever or chills. The patient is not currently being treated for this problem. Note for Cold symptoms: going into chest- using antihistamine- lots of green yellow drainageEncounter Diagnosis: Acute maxillary sinusitis, recurrence not specified [facility] Office Visit On: 27-Jan-2016 12:48 Encounter Reason: Follow up for chronic medical issues - The patient feels well with minor complaints (chronic allergies- draining all the time. Using the nasal spray which helps but needs something more), has good energ End: 27-Jan-2016 22:08 y level and is sleeping well. Patient has been compliant with instructions. Current medication use: no side effects and compliant with dosing regimen. Patient sleeps 8 hours per night. Nutrition: balanc ed diet. The medical issues the patient is following up for include All identified problems below, blood sugar issues, cardiac issues, depression (anxiety), gastric reflux, high blood pressure, high cho lesterol and osteoporosis/osteopenia. Note for Follow up for chronic medical issues: Pt states the Viibryd is working wonderful. her mood great feels alot ??better- bp good and sweating better and mem ory better- her headaches better with sinus spray- her pain doing pretty well- clear drainage, [ADDITIONAL REASON] Follow up, Laboratory Test Results - Date: (01/14/16). 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 Patient has been compliant End: 15-Jan-2016 22:30 with instructions. Patient sleeps 8 hours per night. Nutrition: inadequate caloric intake (states she has been eating alot of the absolute wrong foods). Note for Follow up Meds: she rudolph forget shows s he watched and forget what she did on computer day previous and now forgetting things normally would remember- she having a lot of anxiety - daughter in town - has etoh /drug addiction- sister in hospic e with alzheimers- she not depressed but has anxiety- backed zoloft to 50 mg and still sweating- only needs vicoden couple times a week- when doing a lot more activity- we talked about rescan brain with meningioma history and headaches she not feelnecessary at this point she think maybe sinus so we try nasal spray- Encounter Diagnosis: BMI 31.0-31.9,adult, Nonsmoker, Anxiety (300.00), Sweating increase, Mixed hyperlipidemia, Other intervertebral disc degeneration, lumbar region, Memory loss, Hypertension, benign, Sinus congestion (Renamed from Congestion of paranasal sinus) [facility] Office Visit On: 22-Oct-2015 13:23 Encounter Reason: Physical female exam - General health: feels well with minor complaints, has good energy level and is sleeping well. The patient's appetite is normal. Nutrition: inappropriate diet. Exercises 0 days per End: 23-Oct-2015 21:13 week. Sleeps on average 8 hours per night. Normal bowel and bladder habits. Safety measures include appropriate use of safety belts and home smoke detectors. Current emotional problems include anxiety. screening, colonoscopy and screening, visual acuity (yearly). Note for Physical exam: [facility] Wellness Physical- Talk about trying Myrbetriq., [ADDITIONAL REASON] Follow up, Laboratory Test Results - Date: (09/2015- [facility] labs). , [ADDITIONAL REASON] Itching - Symptoms include pruritus, while symptoms do not include rash or dry skin. Symptom locations include symmetrical body locations. Onset was gradual 1 year(s) ago. There is no known event that preceded symptom onset. The symptoms occur frequently. The patient describes this as worsening. Encounter Diagnosis: Diabetes mellitus type II, controlled, Encounter for screening mammogram for breast cancer (Renamed from Encounter for screening mammogram for malignant neoplasm of breast), Carotid stenosis, asymptomatic, right, Hypertension, benign, Colon Polyp, [facility], Osteopenia (733.90), Pruritus, Mixed hyperlipidemia [facility] Historical Summary On: 02-Oct-2015 8:50 Encounter Diagnosis: Kidney mass, Diabetes mellitus type II, controlled, Other and unspecified hyperlipidemia (272.4) End: 02-Oct-2015 9:01 [facility] Office Visit On: 28-Jul-2015 9:15 Encounter Diagnosis: Nocturia End: 28-Jul-2015 9:16 [facility] Office Visit On: 14-Jul-2015 12:46 Encounter Reason: Follow up Meds - The patient feels well with minor complaints, has good energy level and is sleeping well. Patient has been compliant with instructions. Current medication use: no side effects and compl End: 14-Jul-2015 22:34 iant with dosing regimen. Note for Follow up Meds: she feels more energy with duloxetine and mood good and no nausea- feels sense of peace - wants to go up next dose Encounter Diagnosis: Hypertension, benign, Depression, Kidney mass, Diabetes mellitus type II, controlled, Other and unspecified hyperlipidemia (272.4), Osteopenia (733.90) [facility] Office Visit On: 13-Jun-2015 12:57 Encounter Reason: Follow up for chronic medical issues - The patient feels well with minor complaints (anxiety has worsened lately), has good energy level and is sleeping well. Patient has been compliant with instruction End: 15-Jun-2015 21:01 s. Current medication use: no side effects and compliant with dosing regimen. Patient sleeps 8 hours per night. Nutrition: balanced diet. The medical issues the patient is following up for include All i dentified problems below, blood sugar issues, cardiac issues, depression (anxiety), gastric reflux, high blood pressure, high cholesterol and osteoporosis/osteopenia. Note for Follow up for chronic med ical issues: some days no swain and some days the same more anxiety as boyfriend some heart issues and saw kidney doc in apr and all stable-no routine gerd and talked about er trying to do more physical a ctiviity for her medical problems and to help control her anxiety, [ADDITIONAL REASON] Follow up, Laboratory Test Results - Date: (06/2015). 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, Gastroesophageal reflux disease without esophagitis, Anxiety (300.00), Occlusion and stenosis of unspecified carotid artery, Other intervertebral disc degeneration, lumbar region [facility] Office Visit On: 21-Mar-2015 19:08 Encounter Diagnosis: Knee pain, unspecified laterality End: 21-Mar-2015 19:10 [facility] Office Visit On: 11-Mar-2015 14:02 Encounter Reason: Follow up Meds - The patient feels well with minor complaints (feels better as far as mood but continues to not want to do anything else, no energy), has decreased energy level and is sleeping well. Pat End: 13-Mar-2015 22:35 ient has been compliant with instructions. Current medication use: no side effects, compliant with dosing regimen and considered effective by patient. Patient sleeps 8 hours per night. Impact of disease : emotional impact-mild. Note for Follow up Meds: F/u on increasing the Wellbutrin. she feels that doing better in general and tolerating well, [ADDITIONAL REASON] Falls, Geriatric - The most recent fall occurred at a store. The fall resulted f rom tripping. The fall resulted in contusion(s) to 1. Symptoms include recent fall. The patient describes the symptoms as mild and unchanged. Associated symptoms include pain from the injury (both knees but left knee is worse) and impaired mobility. The patient is not currently being treated for this problem. 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 Patient has been compliant with instructions. Current End: 11-Feb-2015 21:45 medication use: no side effects and compliant with dosing regimen. Patient sleeps 8 hours per night. Nutrition: balanced diet. The medical issues the patient is following up for include All identified problems below, blood sugar issues, cardiac issues, depression (anxiety), gastric reflux, high blood pressure, high cholesterol and osteoporosis/osteopenia. Note for Follow up for chronic medical issue s: mood is down and lacking motivation and daughter put her on bid welbutrin- has been on couple weeks- and has improved not perfect-- trying to drink more water , [ADDITIONAL REASON] Follow up, Laboratory Test Results - Date: (02/07/15). 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 Symptoms include sore throat and postnasal drainage. The symptoms are symmetrical. There is no radiation. The patient describes the pain as sharp. O End: 11-Dec-2014 9:01 nset was sudden 2 day(s) ago. The symptoms occur constantly. The episodes occur daily and last for 2 days. The patient describes this as moderate in severity and worsening. Symptoms are exacerbated by s wallowing liquids and swallowing solids. Symptoms are not relieved by antihistamines, decongestants, drinking liquids, salt water gargles, non-prescription throat lozenges, cool mist humidifier, non-opi oid analgesics or opioid analgesics. Associated symptoms do not include headache, hoarseness, neck stiffness, ear pain, facial pain, abdominal pain, nausea, vomiting, cough, rash, anorexia or fatigue. T he patient is not currently being treated for this problem. By report there is good compliance with treatment. Pertinent medical history does not include recurrent strep pharyngitis, mononucleosis, casa rgic rhinitis, gastroesophageal reflux disease, thyroiditis, diabetes, rheumatic fever, valvular heart disease or HIV infection. Risk factors do not include tobacco use, secondhand smoke exposure, alcoh ol abuse, exposure to strep pharyngitis, exposure to mononucleosis, day care attendance, crowded living conditions, impaired immunity, unsafe sexual practices, foreign body ingestion, toxic ingestion, r ecent travel or trauma. Presenting symptoms included sore throat and postnasal drainage. This problem has not been previously evaluated. This problem has not been previously treated.Encounter Diagnosis: Sore throat, Viral infection, unspecified (079.99), Cerumen Impaction (380.4) [facility] Office Visit On: 05-Nov-2014 12:58 Encounter Reason: Follow up for chronic medical issues - The patient feels well with no complaints, has good energy level and is sleeping well. Patient has been compliant with instructions. Current medication use: no jocelyn End: 05-Nov-2014 23:06 e effects and compliant with dosing regimen. Patient sleeps 8 hours per night. Nutrition: balanced diet. The medical issues the patient is following up for include All identified problems below, blood s ugar issues, cardiac issues, depression (anxiety), gastric reflux, high blood pressure, high cholesterol and osteoporosis/osteopenia. Note for Follow up for chronic medical issues: taking oxycodone 1- 2 times /week for headache- she is gettign byetta and sugar good- weight down 4 pounds bp is good- prayer group has helped her mood and be more positive and no gerd- just had eye exam- just saw nephro s he doing well there make sure keep up on fluids and has follwoup with him in apr- chol great- she doesnt feel swain changing so doesnt wish to mri brain, [ADDITIONAL REASON] Follow up tests - Diagnostic tests include other (labs and carotid doppler). Date: (10/28/14). 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 [facility] Office Visit On: 07-Oct-2014 12:42 Encounter Diagnosis: Shoulder pain (719.41) End: 07-Oct-2014 13:07 [facility] Office Visit On: 03-Sep-2014 12:49 Encounter Diagnosis: Herpes End: 03-Sep-2014 13:14 [facility] Refill Request On: 02-Sep-2014 10:45 Encounter Diagnosis: Yeast infection End: 02-Sep-2014 10:47 [facility] Refill Request On: 30-Aug-2014 9:55 Encounter Diagnosis: Insomnia End: 30-Aug-2014 10:04 [facility] Office Visit On: 02-Aug-2014 12:57 Encounter Reason: Follow up for chronic medical issues - The patient feels well with minor complaints (anxiety issues), has good energy level and is sleeping well. Patient has been compliant with instructions. Current me End: 08-Aug-2014 21:38 dication use: no side effects and compliant with dosing regimen. Patient sleeps 8 hours per night. Nutrition: balanced diet. The medical issues the patient is following up for include All identified pro blems below, blood sugar issues, cardiac issues, depression (anxiety), gastric reflux, high blood pressure, high cholesterol and osteoporosis/osteopenia. Note for Follow up for chronic medical issues: bp is good and weight down 4 pounds cant take byetta due to cost in [facility]- - takes ??lorazepam 1-2 times a week and helps anxiety, [ADDITIONAL REASON] Follow up, Laboratory Test Results - Date: (07/30/14). 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 Pt states she is feeling better though. No new complaints.) End: 14-Apr-2014 21:46 , has good energy level and is sleeping well. Patient has been compliant with instructions. Current medication use: no side effects and compliant with dosing regimen. Patient sleeps 8 hours per night. N utrition: balanced diet. The medical issues the patient is following up for include All identified problems below, blood sugar issues, cardiac issues, depression (anxiety), gastric reflux, high blood pr essure, high cholesterol and osteoporosis/osteopenia. Note for Follow up for chronic medical issues: she in bed 3 days with flu- on tamiflu and feeling better- and - bp low is drinking question enough - we talked about giving her ivv fluids today but she doesnt wish just goinbg to go home and push fluids- her headache about the same and sugars good and mood acceptatble, [ADDITIONAL REASON] Follow up tests - Diagnostic tests include other (labs). Date: (04/03/14). 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, Other and unspecified hyperlipidemia (272.4), Depression (311.), Osteopenia (733.90), Meningioma (Renamed from 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, 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, BRAIN/VETERINARY MILK SPECIALIST NEC (794.09)), OCCLUSION AND STENOSIS OF CAROTID ARTERY, WITHOUT MENTION OF CEREBRAL INFARCTION (433.10) [facility] Phone Encounter On: 08-Apr-2014 11:35 Encounter Diagnosis: Viral infection, unspecified (079.99) End: 08-Apr-2014 11:37 [facility] Office Visit On: 30-Jan-2014 10:59 Encounter Reason: Injections - The medication the patient is here to receive is pneumovax IM (prevnar).Encounter Diagnosis: Need for vaccination against Streptococcus pneumoniae End: 30-Jan-2014 11:35 [facility] Office Visit On: 16-Jan-2014 13:22 Encounter Reason: Follow up for chronic medical issues - The patient feels well with minor complaints (cough in general improved with symbicort and switch off octaviano-), has good energy level and is sleeping well. Patient swain End: 17-Jan-2014 23:08 s been compliant with instructions. Current medication use: no side effects and compliant with dosing regimen. Patient sleeps 8 hours per night. Nutrition: balanced diet. The medical issues the patient is following up for include All identified problems below, blood sugar issues, cardiac issues, depression (anxiety), gastric reflux, high blood pressure, high cholesterol and osteoporosis/osteopenia. No te for Follow up for chronic medical issues: bp and sugar good saw dr santana he is monitoring her kidney disease closedly and not on meds again yet for this and she doesnt have change in headache pattern and really wants to hold off on doing mri of brain and scan of kdineys she knows she is due but doesnt want scans becuase of her kdineys- she feelsm ood acceptable- no rotuine gerd, [ADDITIONAL REASON] Follow up, Laboratory Test Results - Date: (01/09/14). 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 Patient has been compliant with instructions. Current medication use: no End: 18-Oct-2013 22:55 side effects and compliant with dosing regimen. Patient sleeps 8 hours per night. Nutrition: balanced diet. The medical issues the patient is following up for include All identified problems below, bloo d sugar issues, cardiac issues, depression (anxiety), gastric reflux, high blood pressure, high cholesterol and osteoporosis/osteopenia. Note for Follow up for chronic medical issues: barely uses traz adone- and takes hydrocodone 2-3 times a week for swain- and only uses half- her bps at home have been normal- mood ok- but still not excited to do things used to anxiety seems smoother--- not sure drinkin g enough fluids- not taking any nsaids - breathing back to normal, [ADDITIONAL REASON] Follow up tests - Diagnostic tests include other (labs). Date: (10/15/13). 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 The cough is characterized as productive of mucoid sputum. The amount of sputum produced is scanty. The cough occurs all the time. The symptoms are not End: 17-Sep-2013 10:54 aggravated by supine posture. There has been no associated dyspnea, fever, sore throat or wheezing. the color of the sputum is clear. Note for Cough : 2 months tried antihitamine and nasal spray and t ried antireflux meds nothing helps- she is not wheezing- and feels tight in chest not sob- - sometimes clear sputum no fever - she smoked 40 years quit 24 years - and alot of second hand smokeEncounter Diagnosis: Cough (786.2), Chest tightness [facility] Office Visit On: 20-Jul-2013 12:58 Encounter Reason: Follow up for chronic medical issues - The patient feels well with minor complaints (having a lot of bowel issues. Wants to get a colonoscopy set up), has decreased energy level and is sleeping well. Pa End: 22-Jul-2013 22:04 tient has been compliant with instructions. Current medication use: no side effects and compliant with dosing regimen. Patient sleeps 8 hours per night. Nutrition: balanced diet. Note for Follow up for chronic medical issues: bp is good- weight only up few pounds- daughter changed her depression meds and has helped but still feels some anxiety and would go up on zoloft- her sugar stable- - she thin ks part of mood and anxiety was going to hendricks head- alot of stress- still caliber narrow- she has never wanted colonsoospcy but now ready to do , [ADDITIONAL REASON] Follow up tests - Date: (07/19/13 blood work). Encounter Diagnosis: Diabetes, Type II, controlled (250.00), Constipation (564.00), Hypertension,benign(401.1), Proteinuria (791.0), Depression (311.), Gerd (530.81), OCCLUSION AND STENOSIS OF CAROTID ARTERY, WITHOUT MENTION OF CEREBRAL INFARCTION (433.10), screening , Hyperlipidemia, Unspecified (272.4), Meningioma (Renamed from 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, 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, BRAIN/VETERINARY MILK SPECIALIST NEC (794.09)) [facility] Office Visit On: 07-May-2013 12:25 Encounter Diagnosis: Depression (311.) End: 07-May-2013 12:26 [facility] Office Visit On: 02-Feb-2013 12:58 Encounter Reason: Follow up tests - Date: (01/29/13)., [ADDITIONAL REASON] Follow up for chronic medical issues - The patient feels well with minor complai End: 04-Feb-2013 18:37 nts (flucuating blood sugars- went off Byetta), has good energy level and is sleeping well. Patient has been compliant with instructions. Current medication use: experiencing side effects (not sure if v iibryd plus antibiotics were making me sick) and compliant with dosing regimen. Patient sleeps 8 hours per night. Nutrition: balanced diet. Note for Follow up for chronic medical issues: she feels lik pratibha rey has been uplifting and not depressed- went off byetta because something makeing her nauseated- so sugars variable- bp good not due for scans yet and wants to hold off on doing carotids till later- ready to do 24 hour urine- no gerd Encounter Diagnosis: Diabetes, Type II, controlled (250.00), Depression (311.), Gerd (530.81), Hyperlipidemia, Unspecified (272.4), Hypertension,benign(401.1), Proteinuria (791.0), OCCLUSION AND STENOSIS OF CAROTID ARTERY, WITHOUT MENTION OF CEREBRAL INFARCTION (433.10) [facility] Office Visit On: 03-Jan-2013 15:29 Encounter Reason: Follow up Meds - The patient feels well with minor complaints (doesnt seem to be handling things well, thinks depression. Buspar isnt helping.), has decreased energy level and is sleeping well. Patient End: 04-Jan-2013 22:29 has been compliant with instructions. Current medication use: no side effects, compliant with dosing regimen and not considered effective by patient. Patient sleeps 8 hours per night. Impact of disease: emotional impact-moderate. Note for Follow up Meds: she is frettign alot gets both anxiety and depression- less ashlyn and motivation - everything is a hardshipEncounter Diagnosis: Anxiety (300.00), Need for prophylactic vaccination and inoculation against influenza (V04.81), Depression (311.) [facility] Phone Encounter On: 01-Nov-2012 16:49 Encounter Diagnosis: Unspecified Diagnosis End: 01-Nov-2012 16:50 [facility] Phone Encounter On: 17-Oct-2012 11:35 Encounter Diagnosis: Mass of kidney (593.9) End: 17-Oct-2012 11:38 [facility] Office Visit On: 10-Oct-2012 13:30 Encounter Reason: Follow up for chronic medical issues - The patient feels well with no complaints, has good energy level and is sleeping well. Patient has been compliant with instructions. Current medication use: no jocelyn End: 10-Oct-2012 22:37 e effects and compliant with dosing regimen. Patient sleeps 10 hours per night. Nutrition: inappropriate diet, supplemental vitamins and low salt diet. The medical issues the patient is following up for include All identified problems below, blood sugar issues, depression, high blood pressure, high cholesterol, osteoporosis/osteopenia and other (ddd). Note for Follow up for chronic medical issues: Leanne singh currently has a cough but isnt wanting to address it. Has been taking mucinex and lortadine. Clear sputum. No fever. she is checking bps at home and have been good - really working on weight loss- sug ars ahave been good- mood good as far as not depressed but feels anxious and stews about alot of things- cant shut off thinking about - and headaches unchanged- the linzess helped with constipation- but if takes daily gets diarrhea so take qod or q 2-3 days- , [ADDITIONAL REASON] Follow up, Laboratory Test Results - Date: (10/04/12). Encounter Diagnosis: Diabetes, Type II, controlled (250.00), Hypertension,benign(401.1), OCCLUSION AND STENOSIS OF CAROTID ARTERY, WITHOUT MENTION OF CEREBRAL INFARCTION (433.10), Meningioma (Renamed from 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, 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, BRAIN/VETERINARY MILK SPECIALIST NEC (794.09)), Gerd (530.81), Hyperlipidemia, Unspecified (272.4), Anxiety (300.00), Constipation (564.00) [facility] Lab Order On: 17-Jul-2012 8:56 Encounter Diagnosis: Dehydration (276.51) End: 17-Jul-2012 8:58 [facility] Phone Encounter On: 11-Jul-2012 14:39 Encounter Diagnosis: Constipation (564.00) End: 11-Jul-2012 14:43 [facility] Phone Encounter On: 14-Jun-2012 11:51 Encounter Diagnosis: Depression (311.) End: 14-Jun-2012 11:55 [facility] Office Visit On: 13-Jun-2012 8:43 Encounter Reason: Follow up for chronic medical issues - The patient feels well with minor complaints (check right ear for cerumen impaction), has good energy level and is sleeping well. Patient has been compliant with i End: 13-Jun-2012 10:59 nstructions. Current medication use: no side effects and compliant with dosing regimen. Patient sleeps 10 hours per night. Nutrition: inappropriate diet, supplemental vitamins and low salt diet. The med ical issues the patient is following up for include All identified problems below, blood sugar issues, depression, high blood pressure, high cholesterol, osteoporosis/osteopenia and other (ddd). Note fo r Follow up for chronic medical issues: bp looked good-no change in swain and sugar stable -sister age 76 diagnosed with alzheimers, [ADDITIONAL REASON] Follow up, Laboratory Test Results - Date: (06/12/12). Encounter Diagnosis: Diabetes, Type II, controlled (250.00), Hyperlipidemia, Unspecified (272.4), Family history of Alzheimer's disease (V17.2), Meningioma (Renamed from 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, 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, BRAIN/VETERINARY MILK SPECIALIST NEC (794.09)), Hypertension,benign(401.1), OCCLUSION AND STENOSIS OF CAROTID ARTERY, WITHOUT MENTION OF CEREBRAL INFARCTION (433.10), Diarrhea (787.91), Depression (311.), Lesion-Unknown behavior (238.2), Fatigue (780.79), Elevated LFT (790.6), PRERENAL AZOTEMIA (586.), Tinea Pedis (110.4), Cerumen Impaction (380.4) [facility] Office Visit On: 28-Dec-2011 8:40 Encounter Reason: Follow up for chronic medical issues - The patient feels well with minor complaints (talk about changing the diovan to something cheaper-), has good energy level and is sleeping well. Patient has been c End: 28-Dec-2011 21:28 ompliant with instructions. Current medication use: no side effects and compliant with dosing regimen. Patient sleeps 10 hours per night. Nutrition: inappropriate diet, supplemental vitamins and low trey t diet. The medical issues the patient is following up for include All identified problems below, blood sugar issues, depression, high blood pressure, high cholesterol, osteoporosis/osteopenia and other (ddd). Note for Follow up for chronic medical issues: she has been a bit off diet and is going to get back on track- no change in swain and bps have been good - insurance not covering diovan- her mood h as been good- she likes tramadol for pain and helping an occ vicoden when bad, [ADDITIONAL REASON] Follow up, Laboratory Test Results - Date: (12/22/11). 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 The cough is characterized as productive of mucoid sputum. The amount of sputum produced is scanty. The cough occurs all the time. The symptoms have been End: 30-Nov-2011 14:14 associated with fever and headache, while the symptoms have not been associated with hoarseness or wheezing. the color of the sputum is greenish and yellowish.Encounter Diagnosis: Cough (786.2), Diarrhea (787.91), Viral infection, unspecified (079.99) [facility] Lab Order On: 01-Nov-2011 13:19 Encounter Diagnosis: Hypertension,benign(401.1) End: 01-Nov-2011 13:20 [facility] Office Visit On: 01-Nov-2011 8:49 Encounter Diagnosis: HERPES LABIALIS (054.2) End: 01-Nov-2011 9:13 [facility] Office Visit On: 21-Sep-2011 8:03 Encounter Reason: Follow up for chronic medical issues - The patient feels well with no complaints, has good energy level and is sleeping well. Patient has been compliant with instructions. Current medication use: no jocelyn End: 21-Sep-2011 8:39 e effects and compliant with dosing regimen. Patient sleeps 10 hours per night. Nutrition: inappropriate diet, supplemental vitamins and low salt diet. The medical issues the patient is following up for include All identified problems below, blood sugar issues, depression, high blood pressure, high cholesterol, osteoporosis/osteopenia and other (ddd). Note for Follow up for chronic medical issues: b p is good and weight ok- headaches about the same mri of brain stable- getting 24 hour urine - chol ok - mood reasonable, [ADDITIONAL REASON] Follow up, Laboratory Test Results - Date: (09/20/11). 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 Singh told her with the swtich from lexapro to celexa that she should increase her celexa to 4 End: 15-Jun-2011 8:58 0mg which she did last week. Sees some improvement since.), has good energy level and is sleeping well. Patient has been compliant with instructions. Current medication use: no side effects and complian t with dosing regimen. Patient sleeps 10 hours per night. Nutrition: inappropriate diet, supplemental vitamins and low salt diet. The medical issues the patient is following up for include All identifie d problems below, blood sugar issues, depression, high blood pressure, high cholesterol, osteoporosis/osteopenia and other (ddd). Note for Follow up for chronic medical issues: her pressures have been checked couple times in last week and have been on the lower side- yesterday 112/69- her weight down 23 pounds- and trying joined [employer]- she feels well - she increased celexa as was little down a nd that has helped-she has been taking 40mg of crestor instead of lipitor- shoulder bettter- pt helped- comes and goes - not daily headaches now come and go not worse -no abd sx- mri kidney in summer a nd due for brain soon- and she isnt taking pain meds daily, [ADDITIONAL REASON] Follow up, Laboratory Test Results - Date: (06/09/11). 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 The patient is right hand dominant. The injury involved the left shoulder. This occurred 1 week(s) ago at home. The injury result End: 18-Feb-2011 13:21 ed from a fall onto the arm. The activity occurred at home. The activity began 1 week(s) ago. Symptoms include shoulder pain, tenderness and localized swelling, while symptoms do not include clicking. S ymptoms are located in the left shoulder. The pain radiates to the left upper arm, left entire arm and left neck. Onset was sudden. The symptoms occur constantly. The patient describes symptoms as sever e and worsening. Associated symptoms include pain in the arm and pain in the neck.Encounter Diagnosis: Shoulder pain (719.41) [facility] Phone Encounter On: 17-Feb-2011 10:11 Encounter Diagnosis: Shoulder pain (719.41) End: 17-Feb-2011 10:42 [facility] Phone Encounter On: 26-Jan-2011 16:51 Encounter Diagnosis: Meningioma (Renamed from 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, 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, BRAIN/VETERINARY MILK SPECIALIST NEC (794.09)) End: 26-Jan-2011 16:53 [facility] Office Visit On: 19-Jan-2011 14:30 Encounter Diagnosis: brain tumor End: 21-Sep-2011 8:09 [facility] Phone Encounter On: 19-Jan-2011 13:41 Encounter Diagnosis: 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, 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, BRAIN/VETERINARY MILK SPECIALIST NEC (794.09) End: 19-Jan-2011 13:44 [facility] Office Visit On: 11-Jan-2011 8:38 Encounter Reason: Follow up for chronic medical issues - The patient feels well with minor complaints (wants to talk about a pain med she can use for her shoulder pain- pt is thinking Tramadol??), has good energy level a End: 11-Jan-2011 9:21 nd is sleeping well. Patient has been compliant with instructions. Current medication use: no side effects and compliant with dosing regimen. Patient sleeps 10 hours per night. Nutrition: inappropriate diet, supplemental vitamins and low salt diet. The medical issues the patient is following up for include All identified problems below, blood sugar issues, depression, high blood pressure, high cholest ahmet, osteoporosis/osteopenia and other (ddd). Note for Follow up for chronic medical issues: she has chronic sinus issues -omnaris helps- wants some tramadol prn for shoulder issues and back- mood is good -- sugar is good- kidney stable, [ADDITIONAL REASON] Follow up, Laboratory Test Results - Date: (01/04/11). 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 Patient has been compliant with instructions. Current medication use: no side effects and compliant with dosing regimen. Patient sleeps 10 hours per night. Nutrition: inappro priate diet, supplemental vitamins and low salt diet. The medical issues the patient is following up for include All identified problems below, blood sugar issues, depression, high blood pressure, high cholesterol, osteoporosis/osteopenia and other (ddd). blood pressure range : (130's/80's to 150/100's). Note for Follow up for chronic medical issues: she admits to eating the wrong foods- and weight down 2 pounds not exercsing-- she hasnt been taking vit d routinely so she will start kidneys look good- she thinks bps may be monitor issue because hers ws 20 points higher than ours-she will check bp daily with differnent- monitor- mood good and wants to switch to [place] for cosst , [ADDITIONAL REASON] Follow up, Laboratory Test Results - Date: (10/06/10 and 10/08/10). 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), Hyperlipidemia, Unspecified (272.4), Thrombocytopenia, unspecified (287.5), Depression (311.), Acute sinusitis (461.9) [facility] Historical Summary On: 09-Oct-2010 13:42 Encounter Diagnosis: Unspecified Diagnosis End: 09-Oct-2010 13:45 [facility] Phone Encounter On: 18-May-2010 14:41 Encounter Diagnosis: Unspecified Diagnosis End: 18-May-2010 14:42 [facility] Office Visit On: 13-May-2010 15:05 Encounter Reason: Follow up for chronic medical issues - The patient feels well with minor complaints (seasonal effect disorder- went back up to lexapro 20mg- wants to talk about going off the actos.), has good energy le End: 19-May-2010 17:32 tenisha and is sleeping well. Patient has been compliant with instructions. Current medication use: no side effects and compliant with dosing regimen. Patient sleeps 10 hours per night. Nutrition: inappropr iate diet, supplemental vitamins and low salt diet. The medical issues the patient is following up for include All identified problems below, blood sugar issues, depression, high blood pressure, high ch olesterol, osteoporosis/osteopenia and other (ddd). blood pressure range : (130's/70's) and fasting blood sugars : ( 140's). 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 The cough is characterized as productive of mucoid sputum. The amount of sputum produced is scanty. The cough occurs all the time. The symptoms have been End: 22-Dec-2009 15:15 associated with hoarseness and runny nose (clear), while the symptoms have not been associated with sore throat or wheezing. the color of the sputum is clear. Encounter Diagnosis: Viral infection, unspecified (079.99), Cough (786.2) [facility] Office Visit On: 01-Dec-2009 10:27 Encounter Reason: Follow up for chronic medical issues - The patient feels well with minor complaints (ongoing back pain, no new complaints) ,has good energy level and is sleeping well. Patient has been compliant with in End: 01-Dec-2009 11:10 structions. Current medication use: no side effects and compliant with dosing regimen. Patient sleeps 10 hours per night. Nutrition: inappropriate diet ,supplemental vitamins and low salt diet. The medi cesar issues the patient is following up for include All identified problems below ,blood sugar issues ,depression ,high blood pressure ,high cholesterol ,osteoporosis/osteopenia and other (ddd). blood pr essure range : (120's/60's to 130's/80's) and fasting blood sugars : (100's to 140's). Note for Follow up for chronic medical issues: is doing byetta 10 in am and 5 at night and not getting sick with it- she is willing- to try 10 bid again- she is doing 30mg of actos-, [ADDITIONAL REASON] Follow up, Laboratory Test Results - Date: (11/25/09). 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 Patient has been compliant with instructions. Current medicat End: 17-Jun-2009 16:02 ion use: no side effects and compliant with dosing regimen. Patient sleeps 8 hours per night. Nutrition: balanced diet ,supplemental vitamins and low salt diet. The medical issues the patient is followi ng up for include All identified problems below ,blood sugar issues ,depression ,high blood pressure ,high cholesterol ,osteoporosis/osteopenia and other (ddd). blood pressure range : (120's/60's to 130 's/70's) ,fasting blood sugars : (130's/to 140's) and evening sugars : (100's to 120's). , [ADDITIONAL REASON] Headache/ - The onset of the headache/ has been sudden and has been occurring in a persistent pattern for 1 weeks. The course has been constant. The headache/ is characterized as a dull ache and mild. The headache/ is experienced any time of the day (no diurnal variation). The head ache/ is described as being located in the frontal area and the temporal area. The symptoms are not aggravated by noise ,bright light or reading. The symptoms have been associated with nasal discharge/s tuffy nose ,neck pain and sinusitis in the past, while the symptoms have not been associated with blurring of vision ,ear pain ,eye pain ,fever ,head trauma ,migraine in the past ,nausea ,sore throat ,v ertigo or vomiting. The headache/ is relieved by NSAIDs (tylenol). Note for Headache/: tired for a week and drainage for few mos- - does have facial tenderness- dull temporal swain- no vision change- jus t had eye exam four mos- no scalp tenderness no trouble chewing- feels sinus pressure- tylenol takes away- - comes and goes , [ADDITIONAL REASON] Follow up, Laboratory Test Results - Date: (06/11/09). 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), Depression (311.), Headache (784.0), Fatigue (780.79), Tinea Pedis (110.4), Thrombocytopenia, unspecified (287.5) [facility] Nurse Visit (Non-[place]) On: 11-Jun-2009 8:46 [facility] End: 11-Jun-2009 9:16 Office Visit On: 12-May-2009 15:23 Encounter Diagnosis: Shoulder pain (719.41) End: 12-May-2009 15:24 [facility] Office Visit On: 14-Apr-2009 13:50 [facility] End: 14-Apr-2009 13:53 Office Visit On: 10-Mar-2009 12:54 Encounter Reason: Follow up for chronic medical issues - The patient feels well with minor complaints (talk about the s/e of Enablex) ,has good energy level and is sleeping well. Patient has been compliant with instructi End: 10-Mar-2009 14:10 ons. Current medication use: experiencing side effects (Enablex- eye dryness, constipation) and compliant with dosing regimen. Patient sleeps 8 hours per night. Nutrition: balanced diet ,supplemental vi tamins and low salt diet. The medical issues the patient is following up for include All identified problems below ,blood sugar issues ,depression ,high blood pressure ,high cholesterol ,osteoporosis/os teopenia and other (ddd). blood pressure range : (120's/60's to 130's/60's) and evening sugars : (120's). Note for Follow up for chronic medical issues: her bps and sugars at home have been fine- she has nice numbers routinely- is having side effects from vesicare /enablex- - so she is going to try off and see how she does- mood is good on lexapro, [ADDITIONAL REASON] Follow up, Laboratory Test Results - Date: (03/06/09). 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 Patient has been compliant with instructions. Current medication use: no side effects. Patient sleeps 7 hours per night. Impact o End: 21-Jan-2009 11:10 f disease: no overall impact. Nutrition: balanced diet. Encounter Diagnosis: DYSURIA, NOS (788.1) [facility] Office Visit On: 09-Jan-2009 8:13 Encounter Reason: Urinary problems - The onset of the urinary problems has been gradual and they have been occurring in a persistent pattern for 3 days. The course has been increasing. The urinary problems are described End: 09-Jan-2009 12:28 as moderate. The urinary problem is characterized as frequency ,hesitancy and urgency. There has been associated back pain. Past medical history : kidney disease. Encounter Diagnosis: DYSURIA, NOS (788.1), Need for prophylactic vaccination and inoculation against influenza (V04.81), Hematuria (599.7) [facility] Historical Summary On: 31-Dec-2008 17:23 [facility] End: 31-Dec-2008 17:24 Office Visit On: 04-Dec-2008 10:34 Encounter Reason: Follow up for chronic medical issues - The patient feels well with no complaints ,has good energy level and is sleeping well. Patient has been compliant with instructions. Current medication use: no jocelyn End: 05-Dec-2008 19:21 e effects and compliant with dosing regimen. Patient sleeps 8 hours per night. Nutrition: balanced diet ,supplemental vitamins and low salt diet. The medical issues the patient is following up for inclu de All identified problems below ,blood sugar issues ,cardiac issues (palpitations) ,depression ,high blood pressure ,high cholesterol ,osteoporosis/osteopenia and other (ddd). Note for Follow up for c hronic medical issues: was put on enablex by Daughter- tried vaginal cream- and didnt like- for vaginal dryness so wants to try vagifem- wants to try - mood much better on this combination - , [ADDITIONAL REASON] Follow up, Laboratory Test Results - Date: (11/26/08). Encounter Diagnosis: Diabetes, Type II, controlled (250.00), Hypertension,benign(401.1), HYPERCALCEMIA (275.4), Hyperlipidemia, Unspecified (272.4), Vaginal Dryness (623.8), screen, Depression (311.) [facility] Historical Summary On: 11-Oct-2008 12:46 [facility] End: 11-Oct-2008 12:54 Historical Summary On: 01-Oct-2008 16:42 [facility] End: 01-Oct-2008 16:44 Office Visit On: 09-Sep-2008 13:07 Encounter Diagnosis: Screening for other and unspecified deficiency anemia (V78.1) End: 10-Sep-2008 6:46 [facility] Office Visit On: 03-Sep-2008 11:14 Encounter Reason: Follow up for chronic medical issues - The patient feels well with no complaints ,has good energy level and is sleeping well. Patient has been compliant with instructions. Current medication use: no jocelyn End: 04-Sep-2008 6:52 e effects and compliant with dosing regimen. Patient sleeps 8 hours per night. Nutrition: balanced diet ,supplemental vitamins and low salt diet. The medical issues the patient is following up for inclu de All identified problems below ,blood sugar issues ,cardiac issues (palpitations) ,depression (panic disorder) ,high blood pressure ,high cholesterol ,osteoporosis/osteopenia and other (ddd). blood pr essure range : (varies, 100/60's to 130's/80's) and fasting blood sugars : (130's to 140's). Note for Follow up for chronic medical issues: she had lesion on nose removed- she missed meds for 4 days s he is worried about her memory- she still said nothing excites her and doesnt want to get out of bed- - her bps have been great at home- 110-130/60-80- she wasnt taking full dose lipitor and so her chol went up-- her back was ok until moved heavy box -- flared a little but legs are good- she hasnt notcied blood in stool did have a steroid injection- and drinking plenty of fluids no diarrhea, [ADDITIONAL REASON] Follow up, Laboratory Test Results - Date: (08/27/08). Encounter Diagnosis: Diabetes, Type II, controlled (250.00), Depression (311.), Hypertension,benign(401.1), fsgs, prerenal azotemia, screening, Degenerative Disc Disease - Lumbar (722.52), LOW BACK PAIN WITH RADICULOPATHY (724.4), Shoulder pain (719.41) [facility] Historical Summary On: 12-Aug-2008 8:15 [facility] End: 12-Aug-2008 8:17 Office Visit On: 11-Jun-2008 14:29 Encounter Reason: Injections - The medication the patient is here to receive is other (2 cc marcaine 1 cc kenalog, rt. shoulder ). Encounter Diagnosis: Shoulder pain (719.41), Lesion-Unknown behavior (238.2) End: 11-Jun-2008 14:53 [facility] Office Visit On: 03-Jun-2008 10:29 Encounter Reason: Follow up for chronic medical issues - The patient feels well with no complaints ,has good energy level and is sleeping well. Patient has been compliant with instructions. Current medication use: no jocelyn End: 03-Jun-2008 11:04 e effects and compliant with dosing regimen. Patient sleeps 8 hours per night. Nutrition: balanced diet and supplemental vitamins. The medical issues the patient is following up for include All identifi ed problems below ,blood sugar issues ,cardiac issues (palpitations) ,depression ,high blood pressure ,high cholesterol ,osteoporosis/osteopenia and other (arhtritis, ddd, lbp with rad). weight :. Note for Follow up for chronic medical issues: wt down another 5 pounds and she really feels herminia helps alot-- little nausea- but tolerable-- her back is feeling good and just saw the surgeon and doing w ell- she does feel lack of motivation- she likes lexapro, [ADDITIONAL REASON] Follow up, Laboratory Test Results - Date: (05/28/08). Encounter Diagnosis: Diabetes, Type II, controlled (250.00), Depression (311.), Other and unspecified hyperlipidemia (272.4), Degenerative Disc Disease - Lumbar (722.52) [facility] Office Visit On: 04-Mar-2008 13:09 Encounter Reason: Follow up for chronic medical issues - The patient feels well with minor complaints (still some back discomfort from surgery, other than that well) ,has good energy level and is sleeping poorly (restles End: 04-Mar-2008 19:37 s). Patient has been compliant with instructions. Current medication use: no side effects and compliant with dosing regimen. Patient sleeps 7 hours per night. Nutrition: balanced diet ,supplemental albina mins and low salt diet. The medical issues the patient is following up for include All identified problems below ,blood sugar issues ,cardiac issues (palpitations) ,depression (panic disorder) ,high blo od pressure ,high cholesterol ,osteoporosis/osteopenia and other (ddd, ). blood pressure range : (110's/60's to 110's/70's) ,fasting blood sugars : (130's to 140's) and evening sugars : (100's to 110's) . Note for Follow up for chronic medical issues: she is doing bettter with sugars now- she is down to size 12- off the byetta but is going to retry again- she is eating less -and wt down 14 pounds =- she is doing pt- she is doing well with her blood pressure-- mood has been good through the holidayEncounter Diagnosis: Diabetes, Type II, controlled (250.00), Degenerative Disc Disease - Lumbar (722.52), Hypertension,benign(401.1), Hyperlipidemia, Unspecified (272.4), fsgs, Depression (311.) [facility] Office Visit On: 16-Jan-2008 16:05 Encounter Reason: Preoperative evaluation - The patient feels well with minor complaints and has good energy level. Date of procedure: (back sx 01-23-08). There have been no problems with general anesthesia or blood/bloo End: 21-Jan-2008 21:42 d products. Note for Preoperative evaluation: her blood sugar did go up with the steroid injections-- had some in the 200s but now in low 100s again -- she is getting surgery on -- her bps have been running 90s at home-- she is losing more wt-- she was getting a little lightheaded- had anesthesia last year for facelift with no difficulties- no clotting issues or anesthesia issues-- she no chest pain or sob - quit smoking 16 years ago-- Encounter Diagnosis: preop clearance, Hypertension,benign(401.1), Hyperlipidemia, Unspecified (272.4), Diabetes, Type II, controlled (250.00), Need for prophylactic vaccination and inoculation against influenza (V04.81), Degenerative Disc Disease - Lumbar (722.52), fsgs [facility] Office Visit On: 06-Dec-2007 13:52 Encounter Reason: Follow up, Laboratory Test Results - Date: (09/09). , [ADDITIONAL REASON] Follow up for chronic medical issues - The patient feels well with minor complai End: 06-Dec-2007 14:49 nts (other than her back, feeling fine) ,has good energy level and is sleeping well. Patient has been compliant with instructions. Current medication use: no side effects and compliant with dosing regim en. Patient sleeps 9 hours per night. The medical issues the patient is following up for include All identified problems below ,blood sugar issues ,cardiac issues (palpitations) ,depression (panic disor kristina) ,high blood pressure ,high cholesterol and other (lbp, arthritis). blood pressure range : (120's/60's to 130's/70's) ,fasting blood sugars : (140's ) and postprandial sugars : (90's to 100's). Note for Follow up for chronic medical issues: the darvocet is not working -even two of them- she cant sit or lay without pain- she had injection by basali- not having next injection by the 10th- thrapy initially helped- Encounter Diagnosis: Diabetes, Type II, controlled (250.00), Hyperlipidemia, Unspecified (272.4), Degenerative Disc Disease - Lumbar (722.52), Osteopenia (733.90), Hypertension,benign(401.1), fsgs [facility] Historical Summary On: 30-Aug-2007 10:38 [facility] End: 30-Aug-2007 10:40 Historical Summary On: 29-Aug-2007 15:12 Encounter Reason: sciatica - The leg pain began gradually over time and has been occurring for months. The symptoms have been occurring in a persistent pattern. The symptoms are described as a sharp, stabbing pain and sh End: 30-Aug-2007 10:28 ooting pain and are moderate in severity. The symptoms occur at rest ,on exertion ,when climbing stairs ,when lying down ,when walking ,at night and during the day. There is involvement of the right low er extremity and buttocks. There are no precipitating factors. There are no aggravating factors. There are no relieving factors. There has been no associated chest pain ,fatigue ,numbness and tingling i n fingers ,numbness and tingling in toes ,visual disturbances ,calf swelling ,cough ,fever or chills. Note for sciatica: no weakness or numbness - no loss of bowel or bladder control -- not worse with sitting - worse with wlaking, [ADDITIONAL REASON] new patient female physical - Last seen between 3-6 months ago. General health: feels well with minor complaints (sciatica) ,has good energy level and is sleeping well. The patient' s appetite is decreased (with byetta). Nutrition: normal/adequate. Exercises 0 days per week. Sleeps on average 8 hours per night. Normal bowel and bladder habits. Safety measures include appropriate us e of safety belts and home smoke detectors. Current emotional problems include depression (losing spouse). screening, visual acuity. Note for new patient female physical: on byetta--- on 5- cant bella ate 10 - made her vomit-- she had labs in apr- her fsgs is very stable -she is off the immune suppressants and is just treating by keeping pressure very low-- her last cr was 1.1 and she would like to s braxton Laith Santana-- she has white coat sx- mood is good on lexapro Encounter Diagnosis: Hypertension,benign(401.1), Diabetes, Type II, controlled (250.00), arthritis,unspecified (716.90), Other and unspecified hyperlipidemia (272.4), fsgs, LOW BACK PAIN WITH RADICULOPATHY (724.4) [facility] Payers MedicareAARP/[facility]; a guarantor
--- OUTSIDE RECORDS SUMMARY | 2018-06-25 21:25 | XMS RPT_ITS | Continuity of Care Document ---
:1940 Author Organization [facility] Address [address] [place] [address] Phone Care Team Providers Name Role Phone [...] pain, unspecified laterality (719.46) Comments: Luis Fernandoaine:lot: [id number]: 09/20site/route: L knee Status: Active Leg pain, [...] 90 {Tablet} Refills: 3 Ordered:17-Nov-2017 , Chaparrita ENGLEast , Chaparrita A Start : 17-Nov-2017 Active [...] WOLFF Chaparrita A Start : 22-Mar-2018 Active Comments:[id number] 09/20 Victoza 18 MG/3ML Subcutaneous Solution Pen-injector [...] spray daily for 0 days Quantity: 1 {Ramer} Refills: 0 Ordered:04-May-2016 SHONDA Andrade Start : [...] Refills: 3 Ordered:04-May-2016 SHONDA Andrade Start : 28-Jul-2015 End : 04-May-2016 Inactive [...] Refills: 3 Ordered:02-Feb-2013 Ambrocio DOCasea AFast DO, Chpaarrita A Start : 02-Feb-2013 End : 02-Feb-2013 [...] and dispense 8 ounes TOTAL mixed solutionCal [id number] if questions SPECTAZOLE, 1% (External Cream) 1 [...] End : 11-Feb-2015 Discontinued Comments:th[age], called to [facility] 08-30-14 erussell Allergies and Adverse Reactions Name [...] Meningioma (Renamed from 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, 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, BRAIN/REPRODUCTIVE ENDOCRINOLOGIST NEC) (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 2015 right Cholecystectomy Completed lumbar ehmbup==0474 Completed Tonsillectomy Completed Date Value Details 19-Dec-2017 Echocardiogram Complete Result: Comments: See Note; NOTES: [facility] Cardiovascular Services [address] [place] [address] Echo Complete 12/19/17 0800 MR#: [id number] Acct: [id number] Name: CLARENCE ALBERT ep #: [id number] : 1940 77 From: Chuckie Cormier MD Attending Dr: Chaparrita Albrecht DO Status: REG CLI Ordering Dr: Chaparrita Albrecht DO Date: 12/19/17 Location: [facility] Sex: F C Admitted: Reason For Study: [...] Dictated: 12/19/17 0800 Date Transcribed: 12/19/17 1022 Power Manager: Signed 07-Dec-2017 Carotid Duplex Ultrasound Result: Comments: See Note; NOTES: [facility] Cardiovascular Services [address] [place] [address] Carotid Duplex Ultrasound 12/06/17 0901 MR#: [id number] Acct: [id number] Name: CLARENCE WHITTINGTON Rep #: [id number] : 1940 77 From: Anurag Loya MD [...] the left vertebral artery. Procedure Carotid Duplex 36844. Exam performed in department. Interpretation Summary Mild (<50%) stenosis right extracranial internal carotid. Mild (<50%) stenosis left extracranial internal carotid. Flow within the vertebral arteries is antegrade bilaterally. __ __ Ordering Physician: Chaparrita Albrecht Performed By: Margot Benton RVT and Student 12/07/17808 Date Anurag Loya MD CC: Chaparrita Albrecht DO Date Dictated: 12/06/17900 Date Transcribed: 12/07/17808 Power Manager: Signed 06-Dec-2017 SCREENING MAMM (CAD), BILAT Result: Comments: See Note; NOTES: [facility] Imaging Services [address] [place] [address] SCREENING MAMM (CAD), BILAT MR#: [id number] Acct: [id number] Name: CLARENCE ALBERT Nazia Rep #: [id number] : 1940 F 77 From: Misael Hebert MD PCP: Chaparrita Albrecht DO Status: REG CLI Study: SCREENING MAMM (CAD), BILAT Date of Exam: 12/06/17 Exam# [id number] Ordering Dr: Chaparrita Albrecht DO MAMM OGRAPHY [...] delay biopsy of a clinically suspicious abnormality. [id number] Electronically Signed: Misael Hebert MD at 15:31 EDT Tel [phone], Se rvice support , CC: Chaparrita Albrecht DO Power Manager: Signed 10-Jun-2017 Brain W/WO Contrast Result: Comments: See Note; NOTES: [facility] Imaging Services [address] [place] [address] Brain W/WO Contrast MR#: [id number] Acct: [id number] Name: CLARENCE ALBERT Rep #: [id number] : 1940 F 77 From: Laya Montilla MD PCP: Chaparrita Albrecht DO Status: REG CLI Study: Brain W/WO Contrast Date of Exam: 06/10/17 Exam# [id number] Ordering Dr: Chaparrita Albrecht DO STUDY: MRI [...] Service support , CC: Chaparrita Albrecht DO Power Manager: Signed 05-May-2017 Chest PA and Lateral Result: Comments: See Note; NOTES: [facility] Imaging Services [address] [place] [address] Chest PA and Lateral MR#: [id number] Acct: [id number] Name: CLARENCE ALBERT Rep #: [id number] : 1940 F 77 From: Edwar Patino MD PCP: Chaparrita Albrecht DO Status: REG CLI Study: Chest PA and Lateral Date of Exam: 05/05/17 Exam# [id number] Ordering Dr: Keri Singh MD STUDY: X-RAY [...] CC: Keri Singh MD; Chaparrita Albrecht DO Power Manager: Signed 02-Nov-2016 Dexa Bone Density Study (HP) Result: Comments: See Note; NOTES: [facility] Imaging Services [address] [place] [address] Verdana 4d Dexa Bone Density Study (HP) MR#: [id number] Acct: [id number] Name: LYNNE ALBERT Rep #: [id number] : 1940 F 76 From: Misael Hebert MD PCP: Chaparrita Albrecht DO Status: REG CLI Study: Dexa Bone Density Study (HP) Date of Exam: 11/02/16 Exam# [id number] Ordering Dr: Laura DO STUDY: DUAL ENERGY [...] Misael Hebert MD at 11:02 EDT Tel [phone], Service support , CC: Chaparrita Albrecht DO Power Manager: Signed 02-Nov-2016 SCREENING MAMM (CAD), BILAT Result: Comments: See Note; NOTES: [facility] Imaging Services [address] [place] [address] Verdana 4d SCREENING MAMM (CAD), BILAT MR#: [id number] Acct: [id number] Name: ALBERTCLARENCE Nazia Rep #: [id number] : 1940 F 76 From: Misael Hebert MD PCP: Chaparrita Albrecht DO Status: REG CLI Study: SCREENING MAMM (CAD), BILAT Date of Exam: 11/02/16 Exam# [id number] Ordering Dr: Case Albrecht DO MAMMOGRAPHY - [...] delay biopsy of a clinically suspicious abnormality. LC8500 Electronically Signed: Misael Hebert MD at 12:44 EDT Tel [phone], Service support , CC: Chaparrita Albrecht DO Power Manager: Signed 05-Aug-2016 Venous Duplex Lower Extremity Result: Comments: See Note; NOTES: [facility] Cardiovascular Services [address] [place] [address] Venous Duplex US, Unilateral 08/05/16 1053 MR#: [id number] Acct: [id number] Name: CLARENCE WEI Rep #: [id number] : 1940 76 From: Elvin Natarajan MD [...] DO Date Dictated: 08/05/16 1053 Date Transcribed: 08/05/161126 Power Manager: Signed 27-May-2016 Knee 4 or More Views Result: Comments: See Note; NOTES: [facility] Imaging Services [address] [place] [address] Verdana 4d Knee 4 or More Views MR#: [id number] Acct: [id number] Name: CLARENCE ALBERT Rep #: [id number] : 1940 F 76 From: Misael Hebert MD PCP: Chaparrita Albrecht DO Status: REG CLI Study: Knee 4 or More Views Date of Exam: 05/27/16 Exam# [id number] Ordering Dr: Kylah Linda DO UDY: X-RAY - LEFT KNEE REASON FOR [...] MD at 10:41 EST , Service support [phone], CC: Chaparrita Albrecht DO; Kylah Linda DO Power Manager: Signed 13-May-2016 Sinus/Facial Bone Result: Comments: See Note; NOTES: [facility] Imaging Services [address] [place] [address] Hawadana 4d Sinus/Facial Bone MR#: [id number] Acct: [id number] Name: CLARENCE ALBERT Rep #: [id number] : 1940 F 76 From: Godwin Winter MD PCP: Chaparrita Albrecht DO Status: REG CLI Study: Sinus/Facial Bone Date of Exam: 05/13/16 Exam# [id number] Ordering Dr: Alejandro Silverman MD STUDY: CT [...] ot visibly increased in size since the 2011 exam and associated edema is also not significantly changed. According to previous MRI report, findings in that study were compatible with a meningioma. ____ CT/Sinus/Facial Bone IMPRESSION: Normal CT examination of the maxillofacial sinuses. Ostiomeatal units are patent. Right frontal meningioma is stable in size. Electronically Signed: Godwin Winter MD at 7:35 EST , Service support [phone], CC: Chaparrita Albrecht DO; Alejandro Silverman MD Power Manager: Signed 21-Apr-2016 Emergency Department Summary Result: Comments: See Note; NOTES: [facility] Medical Records Department [address] [place] [address] Emergency Department Summary MR#: [id number] Acct: [id number] Name: CLARENCE ALBERT Rep #: [id number] : 1940 76 From: Carissa Murphy MD [...] epistaxis. CARISSA MURPHY MD T: NTS JOB: [id number] 04/21/16 0806 <Electronically signed by Carissa Murphy MD> Date Carissa donovan MD Cosigner Signature (If Indicated): Date CC: Chaparrita Albrecht DO Date Dictated: 04/20/161711 Date Transcribed: 04/20/161711 Power Manager: Signed 20-Apr-2016 Discharge Instruction Result: Comments: See Note; NOTES: [facility] Medical Records Department [address] [place] [address] Discharge Instruction 04/20/16 1303 MR#: [id number] Acct: [id number] Name: CLARENCE ALBERT Rep #: [id number] : 1940 76 From: Carissa Murphy MD [...] your Primary Care Provider. Call [facility] ([phone]) or report to the closest Emergency Room. Call 911 if necessary. 04/20/16 1645 <Electronically signed by Carissa Murphy MD> Date Carissa Murphy MD Cosigner Signature (If I ndicated): Date CC: Chaparrita Albrecht DO 02-Nov-2015 Carotid Duplex Ultrasound Result: Comments: See Note; NOTES: [facility] Cardiovascular Services [address] [place] [address] Carotid Duplex Ultrasound 10/30/15 1100 MR#: [id number] Acct: [id number] Name: CLARENCE ALBERT Rep #: [id number] : 1940 75 From: Elvin Natarajan MD Attending Dr: Chaparrita Albrecht DO Status: REG CLI Ordering Dr: Chaparrita Albrecht DO Date: 10/30/15 Location: [facility] Sex: F C Adm itted: Reason For [...] the left vertebral artery. Procedure Carotid Duplex 56242. The exam was diagnostic. Exam performed in department. Interpretation Summary No significant atherosclerotic plaque or stenosis noted in the right internal carotid artery. Mild (<50%) stenosis left extracranial internal carotid. Armando w within the vertebral arteries is antegrade bilaterally. There has been no significant change since a prior study on 10/18/14. Ordering Physician: Chaparrita Albrecht Performed By: Yana Ramirez RDCS, RVT 11/02/15 1143 Date ___ Elvin Natarajan MD CC: Chaparrita Albrecht DO Date Dictated: 10/30/15 1100 Date Transcribed: 11/02/15 1143 Power Manager: Signed 30-Oct-2015 Bilat Scrn Digital AND CAD Result: Comments: See Note; NOTES: [facility] Imaging Services [address] [place] [address] Verdana 4d Bilat Scrn Digital AND CAD MR#: [id number] Acct: [id number] Name: CLARENCE ALBERT Rep #: [id number] : 1940 F 75 From: Andres Brady MD PCP: Chaparrita Albrecht DO Status: REG CLI Study: Bilat Scrn Digital AND CAD Date of Exam: 10/30/15 Exam# [id number] Ordering Dr: Chaparrita Albrecht DO MAMMOGRAPHY - [...] significant abnormalities are identified. HPBI/Bilat Scrn Digi lcaudia AND CAD IMPRESSION: Stable bilateral screening mammogram. Yearly follow- up mammogram recommended. (A) ASSESSMENT CATEGORY: BIRADS Category 2: Benign. A le tter regarding these results will be sent to the patient by the facility within 30 days. Approximately 10% of breast cancers are not detected by mammography. A normal mammogram should not delay biop sy of a clinically suspicious abnormality. [id number] Electronically Signed: Andres Brady MD at 17:48 EDT Tel , Service support [phone], CC: Chaparrita Albrecht DO Power Manager: Signed 30-Oct-2015 Bilat Scrn Digital AND CAD Result: Comments: See Note; NOTES: [facility] Imaging Services [address] [place] [address] Verdana 4d Bilat Scrn Digital AND CAD MR#: [id number] Acct: [id number] Name: CLARENCE ALBERT Rep #: [id number] : 1940 F 75 From: Andres Brady MD PCP: Chaparrita Albrecht DO Status: REG CLI Study: Bilat Scrn Digital AND CAD Date of Exam: 10/30/15 Exam# [id number] Ordering Dr: Chaparrita Albrecht DO MAMMOGRAPHY - [...] abnormalities are identified. CC: Chaparrita Albrecht DO Power Manager: Signed 22-Oct-2015 ELECTROCARDIOGRAM, COMPLETE (ECG) (68089) Comments: ekg showed normal sinus rhythym, normal axis, no acute st/t wave changes no change Result: [MEASUREMENTS ANALYSIS] Date of Test: 10/22/2015 14:41:29; Heart Rate: 71; W[place] Interval: 140; QRS: 94; QT Interval: 384; Corrected QT Interval (QTc): 403; P Wave Frederick: 58; QRS Wave Frederick: -3; T Wave Frederick: 56; Blood Pressure: 128/76 [ECG DIAGNOSTIC STATEMENTS] Date of Test: 10/22/2015 14:41:29; Summary: Sinus Rhythm Low voltage -possible pulmonary disease. ABNORMAL 22-Jul-2015 Kidney and Bladder Result: Comments: See Note; NOTES: [facility] Imaging Services [address] [place] [address] Verdana 4d Kidney and Bladder MR#: [id number] Acct: [id number] Name: Bharath ALBERT Rep #: [id number] : 1940 F 75 From: Nir Sanchez MD PCP: Chaparrita Albrecht DO Status: REG CLI Study: Kidney and Bladder Date of Exam: 07/22/15 Exam# [id number] Ordering Dr: Chaparrita Albrecht DO STUDY: RENAL [...] Service support , CC: Chaparrita Albrecht DO Power Manager: Signed 11-Mar-2015 Knee 4 or More Views Result: Comments: See Note; NOTES: [facility] Imaging Services [address] [place] [address] Verda 4d Knee 4 or More Views MR#: [id number] Acct: [id number] Name: CLARENCE ALBERT Rep #: [id number] : 1940 F 74 From: Trent Cameron DO PCP: Chaparrita Albrecht DO Status: REG CLI Study: Knee 4 or More Views Date of Exam: 03/11/15 Exam# [id number] Ordering Dr: Case Albrecht DO STUDY: X-RAY [...] at 7:45 EST Tel , Service support [phone], RAD/Knee 4 or More Views IMPRESSION: Degener ative changes within the knee. No acute fracture. Small suprapatellar effusion. Electronically Signed: Trent Cameron DO at 7:45 EST Tel , Service support [phone], CC: Chaparrita Albrecht DO Power Manager: Signed 11-Mar-2015 Knee 4 or More Views Result: Comments: See Note; NOTES: [facility] Imaging Services [address] [place], [place] [address] [address] Verdana 4d Knee 4 or More Views MR#: [id number] Acct: [id number] Name: CLARENCE ALBERT Rep #: [id number] : 1940 F 74 From: Trent Cameron DO PCP: Chaparrita Albrecht DO Status: REG CLI Study: Knee 4 or More Views Date of Exam: 03/11/15 Exam# [id number] Ordering Dr: Case Albrecht DO STUDY: X-RAY [...] at 7:46 EST Tel , Service support [phone], RAD/Knee 4 or More Views IMPRESSION: Mild degenerative changes. No acute bony abnormality. Electronically Signed: Trent Cameron DO at 7:46 EST Tel , Service support [phone], CC: Chaparrita Albrecht DO Power Manager: Signed 18-Oct-2014 Carotid Duplex Ultrasound Result: Comments: See Note; NOTES: [facility] Cardiovascular Services [address] [place] [address] Carotid Duplex Ultrasound 10/18/14 1331 MR#: [id number] Acct: [id number] Na me: CLARENCE ALBERT Rep #: [id number] : 1940 74 From: Elvin Natarajan MD Attending Dr: Chaparrita Albrecht DO Status: REG CLI Ordering Dr: Chaparrita Albrecht DO Date: 10/18/14 Location: Sex: F C Admitted: Rt. Velocities/BP Lt. [...] the left vertebral artery. Procedure Carotid Duplex 07788. The exam was diagnostic. Exam performed in department. Interpretatio n Summary No significant atherosclerotic plaque or stenosis noted in the right internal carotid artery. Mild (<50%) stenosis left extracranial internal carotid. Flow within the vertebral matteo yaneli is antegrade bilaterally. Ordering Physician: Chaparrita Albrecht Performed By: JENELLE Vásquez 10/18/14 1616 Date Elvin Natarajan MD CC: Chaparrita Albrecht DO Date Dictated: 10/18/14 1331 Date Transcribed: 10/18/14 1616 Power Manager: Signed 18-Oct-2014 Bilat Scrbharath Digital AND CAD Result: Comments: See Note; NOTES: [facility] Imaging Services [address] [place] [address] Breast Imaging Report MR#: [id number] Acct: [id number] Name: CLARENCE ALBERT Rep #: [id number] : 1940 F 74 From: Misael Hebert MD PCP: Chaparrita Albrecht DO Status: REG CLI Study: Billila Scrn Digital AND CAD Date of Exam: 10/18/14 Exam# [id number] Ordering Dr: Chaparrita Albrecht DO MAMMOGRAPHY - [...] Misael redmond MD at 13:44 EDT Tel [phone], Service support [phone], CC: Chaparrita Albrecht DO Power Manager: Signed 09-Jul-2014 Dexa Bone Density Study (HP) Result: Comments: See Note; NOTES: [facility] Imaging Services [address] [place] [address] Bone Density Report MR#: [id number] Acct: [id number] Name: CLARENCE ALBERT Rep #: [id number] : 1940 F 74 From: Misael Hebert MD PCP: Chaparrita Albrecht DO Status: [facility] Study: Dexa Bone Density Study (HP) Date of Exam: 07/09/14 Exam# [id number] Ordering Dr: Chaparrita Albrecht DO STUDY: DUAL [...] Angel Hebert MD at 14:55 EDT Tel [phone], Service support [phone], CC: Chaparrita Albrecht DO Power Manager: Signed 17-Sep-2013 Chest PA and Lateral Result: Comments: See Note; NOTES: [facility] Imaging Services [address] [place] [address] Radiology Report MR#: [id number] Acct: [id number] Name: CLARENCE ALBERT Rep #: [id number] : 1940 F 73 From: David Bennett MD PCP: Chaparrita Albrecht DO Status: REG CLI Study: Chest PA and Lateral Date of Exam: 09/17/13 Exam# [id number] Ordering Dr: Chaparrita Albrecht DO STUDY: X-RAY [...] MD at 20:44 EDT , Service support [phone], RAD/Chest PA and Lateral IMPRESSION: No focal infiltrate or edema. Electronic ally Signed: David Bennett MD at 20:44 EDT , Service support [phone], CC: Chaparrita Albrecht DO Power Manager: Signed 17-Sep-2013 Spirometry (87678) Result: 29-Aug-2013 Carotid Duplex Ultrasound Result: Comments: See Note; NOTES: [facility] Cardiovascular Services [address] [place] [address] Carotid Duplex Ultrasound 08/24/13 0939 MR#: [id number] Acct: [id number] Nam e: CLARENCE ALBERT Rep #: [id number] : 1940 73 From: Anurag Loya MD Attending Dr: Chaparrita Albrecht DO Status: REG CLI Ordering Dr: Chaparrita Albrecht DO Date: 08/24/13 Location: [facility] Sex: F C Admitted: Rt. Velocities/BP Lt. [...] in the left bulb. Procedure Carotid Duplex 72497. Exam perfor med in department. Interpretation Summary Mild (<50%) stenosis right extracranial internal carotid. Mild (<50%) stenosis left extracranial internal carotid. Flow within the vertebra l arteries is antegrade bilaterally. Ordering Physician: Chaparrita Albrecht Performed By: Kendal Benton RVT : Chaparrita Albrecht DO Date Dictated: 08/24/13 0939 Date Transcribed: 08/29/13 1118 Power Manager: Signed Immunization Name Dates Details Influenza (3 years and up) on: 16-Jan-2008 Comments: Lot #: [id number] date: 09/10Amount given: 0.5 mlRoute: IMSite given: Left deltoidGiven by: Olivia Bell LPN Influenza (3 years and up) on: 09-Jan-2009 Comments: Lot #[id number]-left deltoidDose0.5mlgiven by Marycarmen Jorge LPN Pneumococcal (2 years and up) on: 29-Aug-2007 Comments: 0.5cc given im lt arm [id number] exp 02-13-08 Family History Unknown Family Member [...] kg/m2 Body Surface Area Calculated 1.76 m2 99-Edm-597332:39 Temperature 97.9 f Comments: Method: Temporal Pulse [...] copy of this report has been sent [phone].PATIENT WAS FASTINGPERFORMED BY: Integrity Tracking [id number] [facility] [id number] Alb/Creat Ratio 4475.5 {mg/g_creat} (Abnormal) Range: 0.0-30.0 Comments: Normal: 0.0 - 30.0 Albuminuria: 31.0 - 300.0 Clinical albuminuria: >300.0 Albumin, Urine 2085.6 ug/mL (Normal) Comments: Results confirmed ondilution. Creatinine, Urine 46.6 mg/dL (Normal) :33 CBC With Differential/Platelet Comments: A courtesy copy of this report has been sent [phone].PATIENT WAS FASTINGPERFORMED BY: Bid NerdWinslow Indian Health Care CenterFwshpl9348 [facility] [id number] Information: ADD CBC Immature Grans (Abs) 0.0 [...] copy of this report has been sent [phone].PATIENT WAS FASTINGPERFORMED BY: Integrity Tracking [facility] [id number] :33 Range: 1.6-2.3 :33 Microscopic Examination Comments: A courtesy copy of this report has been sent [phone].PATIENT WAS FASTINGPERFORMED BY: Integrity Tracking [id number] [facility] [id number] Bacteria Few (Normal) Mucus Threads Present (Normal) Epithelial Cells (non 0-10 {/hpf} Range: 0 - 10 renal) (Normal) RBC 0-2 {/hpf} (Normal) Range: 0 - 2 WBC 0-5 {/hpf} (Normal) Range: 0 - 5 : PTH, Intact 29 pg/mL (Normal) Comments: A courtesy copy of this report has been sent [phone].PATIENT WAS FASTINGPERFORMED BY: Integrity Tracking [id number] [facility] [id number] 33 Range: 15-65 :33 Renal Panel (10) Comments: A courtesy copy of this report has been sent [phone].PATIENT WAS FASTINGPERFORMED BY: Integrity Tracking [id number] [facility] [id number] Phosphorus 4.0 mg/dL (Normal) Range: 2.5-4.5 :33 Vitamin D Hydroxy (28722) Comments: A courtesy copy of this report has been sent [phone].PATIENT WAS FASTINGPERFORMED BY: Bid Nerd [id number] [facility] [id number] Vitamin D, 25-Hydroxy 36.8 ng/mL (Normal) Range: 30.0-100.0 Comments: Vitamin D deficiency has been defined by the Five Points ofMedicine and an Endocrine Society practice guideline as alevel of serum 25-OH vitamin D less than 20 ng/mL (1,2).The Endocrine Society went on to further define vitamin Dinsufficiency as a level between 21 and 29 ng/mL (2).1. IOM (Five Points of Medicine). 2010. Dietary reference intakes for calcium and D. [place]: The National Academies Press.2. Mira MF, Rosette LOPEZ, Tommy SWAIN, et al. Evaluation, treatment, and prevention of vitamin D deficiency: an Endocrine Society clinical practice guideline. JCEM. 2010; 96(7):1911-30. :33 URINALYSIS, W/ MICRO (04598) Comments: A courtesy copy of this report has been sent [phone].PATIENT WAS FASTINGPERFORMED BY: [id number] [facility] [id number] Microscopic Examination See below: (Normal) Comments: Microscopic was indicated and was performed. Nitrite, Urine Negative (Normal) Urobilinogen,Semi-Qn 0.2 mg/dL (Normal) Range: 0.2-1.0 Bilirubin Negative (Normal) Occult Blood Negative (Normal) Ketones Negative (Normal) Glucose Negative (Normal) Protein 3+ (Abnormal) WBC Esterase Negative (Normal) Appearance Clear (Normal) Urine-Color Yellow (Normal) pH 5.5 (Normal) Range: 5.0-7.5 Specific Barling 1.012 (Normal) Range: 1.005-1.030 :33 LIPID PANEL (45604) Comments: A courtesy copy of this report has been sent [phone].PATIENT WAS FASTINGPERFORMED BY: [id number] [facility] [id number] LDL/HDL Ratio 1.4 {ratio} (Normal) Range: 0.0-3.2 Comments: LDL/HDL Ratio Men Women 1/2 Avg.Risk 1.0 1.5 Av g.Risk 3.6 3.2 2X Avg.Risk 6.2 5.0 3X Avg.Risk 8.0 6.1 LDL Cholesterol Calc 93 mg/dL (Normal) Range: 0-99 VLDL Cholesterol Cesar 26 mg/dL (Normal) Range: 5-40 HDL Cholesterol 67 mg/dL (Normal) Triglycerides 131 mg/dL (Normal) Range: 0-149 Cholesterol, Total 186 mg/dL (Normal) Range: 100-199 06-Mar-20189:33 METABOLIC PANEL, COMPREHENSIVE Comments: A courtesy copy of this report has been sent [phone].PATIENT WAS FASTINGPERFORMED BY: LabCoSaint Clare's Hospital at Boonton TownshipVmdlpa7829 [facility] [id number] (81969) ALT (SGPT) 11 [iU]/L (Normal) Range: 0-32 [...] 8-27 Glucose 162 mg/dL (Abnormal) Range: 65-99 :24 HgA1C , Office (77370) HgA1C , Office 6.5 % (Normal) Range: 4.6 - 7.1 :33 HGB A1C (98683) Comments: A courtesy copy of this report has been sent [phone].PATIENT WAS FASTINGPERFORMED BY: [employer]70 [facility]enzNov[facility] [id number] Hemoglobin A1c 6.3 % (Abnormal) Range: 4.8-5.6 Comments: . Prediabetes: 5.7 - 6.4 Diabetes: >6.4 Glycemic control for adults with diabetes: <7.0 :14 LIPID PANEL (04444) Comments: PATIENT WAS FASTINGPERFORMED BY: [employer]70 [facility] [id number] LDL/HDL Ratio 1.1 {ratio} (Normal) Range: 0.0-3.2 [...] (Normal) Range: 100-199 :14 Vitamin D Hydroxy (95837) Comments: PATIENT WAS FASTINGPERFORMED BY: Tripwire6370 [facility] [id number] Vitamin D, 25-Hydroxy 37.8 ng/mL (Normal) Range: 30.0-100.0 Comments: Vitamin D deficiency has been defined by the Five Points ofMedicine and an Endocrine Society practice guideline as alevel of serum 25-OH vitamin D less than 20 ng/mL (1,2).The Endocrine Society went on to further define vitamin Dinsufficiency as a level between 21 and 29 ng/mL (2).1. IOM (Five Points of Medicine). 2010. Dietary reference intakes for calcium and D. [place]: The National Academies Press.2. Mira MF, Rosette LOPEZ, Tommy SWAIN, et al. Evaluation, treatment, and prevention of vitamin D deficiency: an Endocrine Society clinical practice guideline. JCEM. 2010; 96(7):1911-30. 5-Dec-20179:14 CBC with auto diff (53408) Comments: PATIENT WAS FASTINGPERFORMED BY: LabCoSaint Clare's Hospital at Boonton TownshipEbpeeb1889 [facility] [id number] Immature Grans (Abs) 0.0 {x10E3/uL} (Normal) Range: [...] PANEL, COMPREHENSIVE Comments: PATIENT WAS FASTINGPERFORMED BY: Integrity TrackingSaint Clare's Hospital at Boonton TownshipIxvvtj6705 [facility] [id number] (64215) ALT (SGPT) 10 [iU]/L (Normal) Range: 0-32 [...] 8-27 Glucose 142 mg/dL (Abnormal) Range: 65-99 61-Oyw-40357:40 MICROALBUMIN: CREATININE RATIO Comments: PATIENT WAS FASTINGPERFORMED BY: Integrity TrackingSaint Clare's Hospital at Boonton TownshipDslnnd0192 [facility] [id number] (94743) AND (55252) Alb/Creat Ratio 4213.3 {mg/g_creat} (Abnormal) Range: 0.0-30.0 Albumin, Urine 3206.3 ug/mL (Normal) Comments: Results confirmed ondilution. Creatinine, Urine 76.1 mg/dL (Normal) :40 CBC & PLATELETS (AUTO) (03464) Comments: please fax to Dr. Austin- [phone]; PATIENT WAS FASTINGPERFORMED BY: Integrity TrackingAlexandra Ville 4604270 [facility] [id number] Platelets 148 {x10E3/uL} (Abnormal) Range: 150-379 RDW 14.8 % (Normal) Range: 12.3-15.4 MCHC 33.6 g/dL (Normal) Range: 31.5-35.7 MCH 29.7 pg (Normal) Range: 26.6-33.0 MCV 89 fL (Normal) Range: 79-97 Hematocrit 36.9 % (Normal) Range: 34.0-46.6 Hemoglobin 12.4 g/dL (Normal) Range: 11.1-15.9 RBC 4.17 {x10E6/uL} (Normal) Range: 3.77-5.28 WBC 4.7 {x10E3/uL} (Normal) Range: 3.4-10.8 06-Sxf-98856:40 RENAL FUNCTION PANEL Comments: please fax to Dr. Austin- [phone]; PATIENT WAS FASTINGPERFORMED BY: Integrity TrackingSaint Clare's Hospital at Boonton TownshipYoyrrh9364 [facility] [id number] Information: [id number] FX DR. SANTANA (54288) Albumin 3.1 g/dL (Abnormal) Range: 3.5-4.8 Phosphorus [...] 133 mg/dL (Abnormal) Range: 65-99 :40 MAGNESIUM (95148) Comments: please fax to Dr. Austin- [phone]; PATIENT WAS FASTINGPERFORMED BY: LabCo Hmhjiz7866 [address]by RoadDublin [place] [id number] Magnesium 1.9 mg/dL (Normal) Range: 1.6-2.3 :40 CALCIFEDIOL (89303) Comments: please fax to Dr. Austin- [phone]; PATIENT WAS FASTINGPERFORMED BY: LabCo Slevlz2670 [address] RoadDublin [place] [id number] Vitamin D, 25-Hydroxy 29.4 ng/mL (Abnormal) Range: 30.0-100.0 Comments: Vitamin D deficiency has been defined by the Five Points ofMer[facility] Hospitalcine and an Endocrine Society practice guideline as alevel of serum 25-OH vitamin D less than 20 ng/mL (1,2).The Endocrine Society went on to further define vitamin Dinsufficiency as a level between 21 and 29 ng/mL (2).1. IOM (Five Points of Medicine). 2010. Dietary reference intakes for calcium and D. [place]: The National Academies Press.2. Mira MF, Rosette [place], Tommy SWAIN, et al. Evaluation, treatment, and prevention of vitamin D deficiency: an Endocrine Society clinical practice guideline. JCEM. 2010; 96(7):1911-30. :40 PARATHORMONE (16092) Comments: please fax to Dr. Austin- [phone]; PATIENT WAS FASTINGPERFORMED BY: LabCo Yxbcmo1349 [address] RoadDublin [place] [id number] PTH, Intact 22 pg/mL (Normal) Range: 15-65 51-Fsn-65997:30 COLON BIOPSY (CHOOSE See Note (Normal) Comments: [facility] Ichzwbiqfi4[address] [place], [place], [id number] SITE) Comments: Patient: CLARENCE ALBERT : 1940 (77/F) Acct Num: [id number] Phys: Marcus Caldera Unit Num: [id number] Loc: LABSPEC Specimen: [id number] Received: 09/16/171528 Spec Type: Kendal MAURER TISSUES TISSUES: A. Sigmoid colon biopsy B. [...] one cassette. / MARCY:dustin 09/19/17 TC:1 CPT: 00563 x2 HEADER OPERATION: Colonoscopy PRE-OP DIAGNOSIS: History of polyps TISSUE SUBMITTED: A Proximal sigmoid polyp, rule out adenoma, B Transversecolon, rule out adenoma MICROSCOPIC DESCRIPTION Slides are reviewed. M ICROSCOPIC DIAGNOSIS A. Proximal sigmoid polyp, biopsy: Fragments of tubular adenoma. B. Transverse colon polyp, biopsy: Fragments of tubular adenoma. SJ:dustin 09/20/17 Signed _ Nacho Ardon 09/20/17 <signature on file> 18-Sku-44788:24 METABOLIC PANEL, COMPREHENSIVE Comments: PATIENT NOT FASTINGPERFORMED BY: LabCoSaint Clare's Hospital at Boonton TownshipAfkstw4901 [facility] [id number] (74252) ALT (SGPT) 14 [iU]/L (Normal) Range: 0-32 [...] (Abnormal) Range: 65-99 :07 HgA1C , Office (35243) HgA1C , Office 7.2 % (Abnormal) Range: 4.6 - 7.1 :37 Clostridium difficile Toxin Comments: PATIENT NOT FASTINGPERFORMED BY: [employer]6370 [facility] [id number] A+B, EIA (93650) C difficile Toxins A+B, EIA Negative (Normal) :37 LEUKOCYTE COUNT, FECAL (95409) Comments: PATIENT NOT FASTINGPERFORMED BY: [employer]6370 [facility] [id number] Result 1 NWBC (Normal) Comments: No white blood cells seen. White Blood Cells (WBC), Final report (Normal) Stool :37 OVA & PARASITE DIR SMEAR Comments: PATIENT NOT FASTINGPERFORMED BY: [employer]6370 [facility] [id number] (97977) Result 1 NOCP (Normal) Comments: No ova, cysts, or parasites seen. Ova + Parasite Exam Final report (Normal) Comments: These results were obtained using wet preparation(s) and trichromestained smear. This test does not include testing for Cryptosporidiumparvum, Cyclospora, or Microsporidia. :37 SETH CULTURE-STOOL (97108) Comments: PATIENT NOT FASTINGPERFORMED BY: Bid Nerd Qoxuev3011 [facility] [id number] Information: SRC:ST SRC:ST E coli Shiga Toxin EIA Negative (Normal) Result 1 NCI (Normal) Comments: No Campylobacter species isolated. Campylobacter Culture Final report (Normal) Result 1 NSS (Normal) Comments: No Salmonella or Shigella recovered. Salmonella/Shigella Screen Final report (Normal) :06 Renal function Panel Comments: fax copy to Dr. Santana [phone]; A courtesy copy of this report has been sent [phone].PATIENT NOT FASTINGPERFORMED BY: Integrity Tracking Gfnphl4462 [facility] [id number] Information: NURSE DRAW (14699) Albumin 3.5 g/dL (Normal) Range: 3.5-4.8 Phosphorus [...] copy of this report has been sent [phone].PATIENT NOT FASTINGPERFORMED BY: Integrity Tracking Mviqqs8836 [facility] [id number] :02 Range: 15-65 Vitamin D, 25-Hydroxy 34.7 ng/mL (Normal) Comments: A courtesy copy of this report has been sent [phone].PATIENT NOT FASTINGPERFORMED BY: Integrity Tracking Eztmim4192 [facility] [id number] :02 Range: 30.0-100.0 Comments: Vitamin D deficiency has been defined by the Five Points ofMedicine and an Endocrine Society practice guideline as alevel of serum 25-OH vitamin D less than 20 ng/mL (1,2).The Endocrine Society went on to further define vitamin Dinsufficiency as a level between 21 and 29 ng/mL (2).1. IOM (Five Points of Medicine). 2010. Dietary reference intakes for calcium and D. [place]: The National Academies Press.2. Mira MF, Rosette [place], Tommy SWAIN, et al. Evaluation, treatment, and prevention of vitamin D deficiency: an Endocrine Society clinical practice guideline. JCEM. 2010; 96(7):1911-30. 7-Mci-981167:02 MICROALBUMIN: CREATININE RATIO Comments: send results to Dr. Santana fax: [phone]; A courtesy copy of this report has been sent [phone].PATIENT NOT FASTINGPERFORMED BY: Bid Nerd Ivwirb1673 [address] [facility] [id number] (23469) AND (52720) Alb/Creat Ratio 4191.2 {mg/g_creat} (Abnormal) Range: 0.0-30.0 Albumin, Urine 2380.6 ug/mL (Normal) Comments: Results confirmed ondilution. Creatinine, Urine 56.8 mg/dL (Normal) :02 CBC, PLATELETS & MANUAL Comments: send results to Dr. Santana fax: [phone]; A courtesy copy of this report has been sent [phone].PATIENT NOT FASTINGPERFORMED BY: Integrity Tracking Jmubad9818 [facility] [id number] Information: VIT D25, PTH DIFF (67100) Immature Grans (Abs) 0.0 {x10E3/uL} (Normal) Range: [...] 3.77-5.28 WBC 5.4 {x10E3/uL} (Normal) Range: 3.4-10.8 7-Kuv-761285:02 MAGNESIUM (48282) Comments: send results to Dr. Santana fax: [phone]; A courtesy copy of this report has been sent [phone].PATIENT NOT FASTINGPERFORMED BY: LabCoSaint Clare's Hospital at Boonton TownshipEciowf7084 [facility] [id number] Magnesium, Serum 1.8 mg/dL (Normal) Range: 1.6-2.3 0-Xfx-034812:02 RENAL FUNCTION PANEL (73866) Comments: send results to Dr. Santana fax: [phone]; A courtesy copy of this report has been sent [phone].PATIENT NOT FASTINGPERFORMED BY: Integrity Tracking Dfythh6673 [facility] [id number] Albumin, Serum 3.7 g/dL (Normal) Range: 3.5-4.8 [...] Glucose, Serum 119 mg/dL (Abnormal) Range: 65-99 6-Fos-825794:07 LIPID PANEL (05225) Comments: PATIENT WAS FASTINGPERFORMED BY: Integrity TrackingSaint Clare's Hospital at Boonton TownshipKtbxmf6197 [facility] [id number] LDL/HDL Ratio 1.4 {ratio} (Normal) Range: 0.0-3.2 Comments: LDL/HDL Ratio Men Women 1/2 Avg.Risk 1.0 1.5 Av g.Risk 3.6 3.2 2X Avg.Risk 6.2 5.0 3X Avg.Risk 8.0 6.1 LDL Cholesterol Calc 102 mg/dL (Abnormal) Range: 0-99 VLDL Cholesterol Cesar 17 mg/dL (Normal) Range: 5-40 HDL Cholesterol 75 mg/dL (Normal) Triglycerides 84 mg/dL (Normal) Range: 0-149 Cholesterol, Total 194 mg/dL (Normal) Range: 100-199 2-Wln-618044:07 CBC W/AUTO DIFF WBC (34094) Comments: PATIENT WAS FASTINGPERFORMED BY: LabCoSaint Clare's Hospital at Boonton TownshipMhzlkb4841 [facility] [id number] Immature Grans (Abs) 0.0 {x10E3/uL} (Normal) Range: [...] 3.77-5.28 WBC 4.8 {x10E3/uL} (Normal) Range: 3.4-10.8 0-Zxq-348667:07 METABOLIC PANEL, COMPREHENSIVE Comments: PATIENT WAS FASTINGPERFORMED BY: LabCoSaint Clare's Hospital at Boonton TownshipWqxafu5724 [facility] [id number] (61683) ALT (SGPT) 14 [iU]/L (Normal) Range: 0-32 [...] 0 days - 30 days 16 - 29 16 - 29 31 days - 1 year 15 - [...] 8-27 Glucose 158 mg/dL (Abnormal) Range: 65-99 3-Btl-929304:07 VITAMIN B-12 (CYANOCOBALAMIN) Comments: PATIENT WAS FASTINGPERFORMED BY: [facility] Slxxmj0620 [facility] [id number] (83866) Vitamin B12 771 pg/mL (Normal) Range: 232-1245 13-May-20170:00 CDIFF (Molecular) Comments: [facility] Y[address]op[address]xfa[address] [place], [place], [address] CDIFF See Note (Normal) Comments: Cdiff-MolecularNormal Reference Range = Negative C. Diff DNA Negative- No toxigenic C. Diff DNA DetectedNAAT METHOD Testing was performed using nucleic acid amplification 05-May-20179:32 Rapid Flu (67686 x 2) Influenza A Ag Negative (Normal) :35 CBC with auto diff (75190) Comments: PATIENT WAS FASTINGPERFORMED BY: Integrity TrackingSaint Clare's Hospital at Boonton TownshipQumnat9095 [facility] [id number] Immature Grans (Abs) 0.0 {x10E3/uL} (Normal) Range: [...] 3.77-5.28 WBC 6.6 {x10E3/uL} (Normal) Range: 3.4-10.8 :35 METABOLIC PANEL, COMPREHENSIVE Comments: PATIENT WAS FASTINGPERFORMED BY: Integrity TrackingSaint Clare's Hospital at Boonton TownshipVvlowf6001 [facility] [id number] (47346) ALT (SGPT) 16 [iU]/L (Normal) Range: 0-32 [...] Glucose, Serum 145 mg/dL (Abnormal) Range: 65-99 29-Wzr-944405:51 HgA1C , Office (27249) HgA1C , Office 6.7 % (Normal) Range: 4.6 - 7.1 3-Tip-568171:50 CALCIFEDIOL (33879) Comments: A courtesy copy of this report has been sent [phone].PATIENT WAS FASTINGPERFORMED BY: LabSelect [facility]ty Hospital-[facility]aginaw6370 [facility] [id number] Vitamin D, 25-Hydroxy 40.7 ng/mL (Normal) Range: 30.0-100.0 Comments: Vitamin D deficiency has been defined by the Five Points ofMedicine and an Endocrine Society practice guideline as alevel of serum 25-OH vitamin D less than 20 ng/mL (1,2).The Endocrine Society went on to further define vitamin Dinsufficiency as a level between 21 and 29 ng/mL (2).1. IOM (Five Points of Medicine). 2010. Dietary reference intakes for calcium and D. [place]: The National Academies Press.2. Mira MF, Rosette LOPEZ, Tommy SWAIN, et al. Evaluation, treatment, and prevention of vitamin D deficiency: an Endocrine Society clinical practice guideline. JCEM. 2010; 96(7):1911-30. 4-Iqt-035393:50 PTH (PARATHORMONE) (20956) Comments: A courtesy copy of this report has been sent [phone].PATIENT WAS FASTINGPERFORMED BY: [place] [id number] PTH, Intact 20 pg/mL (Normal) Range: 15-65 5-Rkl-113731:50 MICROALBUMIN: CREATININE RATIO Comments: A courtesy copy of this report has been sent [phone].PATIENT WAS FASTINGPERFORMED BY: [employer]70 [address] [place] [id number] (73115) AND (71801) Microalb/Creat Ratio 4376.0 {mg/g_creat} (Abnormal) Range: 0.0-30.0 Microalbumin, Urine 3369.5 ug/mL (Normal) Comments: Results confirmed ondilution. Creatinine, Urine 77.0 mg/dL (Normal) 7-Ybf-391485:50 Renal function Panel Comments: A courtesy copy of this report has been sent [phone].PATIENT WAS FASTINGPERFORMED BY: Tripwire6370 MongoSluiceNorth Carolina Specialty Hospital [id number] Information: FX DR. SANTANA [phone] (71408) Albumin, Serum 3.8 g/dL (Normal) Range: 3.5-4.8 [...] Glucose, Serum 203 mg/dL (Abnormal) Range: 65-99 5-Wlj-775976:50 Magnesium (86787) Comments: A courtesy copy of this report has been sent [phone].PATIENT WAS FASTINGPERFORMED BY: Bid NerdSaint Clare's Hospital at Boonton TownshipKlpwec9226 [facility] [id number] Magnesium, Serum 1.8 mg/dL (Normal) Range: 1.6-2.3 :53 CBC with auto diff (96540) Comments: A courtesy copy of this report has been sent [phone].PATIENT WAS FASTINGPERFORMED BY: Bid NerdSaint Clare's Hospital at Boonton TownshipNezduv5638 [facility] [id number] Immature Grans (Abs) 0.0 {x10E3/uL} (Normal) Range: [...] {x10E3/uL} (Normal) Range: 3.4-10.8 :53 LIPID PANEL (54185) Comments: A courtesy copy of this report has been sent [phone].PATIENT WAS FASTINGPERFORMED BY: Bid NerdSaint Clare's Hospital at Boonton TownshipIgezhs1555 [facility] [id number] LDL/HDL Ratio 1.2 {ratio_units} (Normal) Range: 0.0-3.2 [...] copy of this report has been sent [phone].PATIENT WAS FASTINGPERFORMED BY: Bid NerdSaint Clare's Hospital at Boonton TownshipKtziix2709 [facility] [id number] (41260) ALT (SGPT) 11 [iU]/L (Normal) Range: 0-32 [...] Glucose, Serum 205 mg/dL (Abnormal) Range: 65-99 27-Upn-316724:57 HgA1C , Office (66812) HgA1C , Office 7.1 % (Normal) Range: 4.6 - 7.1 :09 LIPID PANEL (37675) Comments: PATIENT WAS FASTINGPERFORMED BY: LabCoSaint Clare's Hospital at Boonton TownshipUwvsiv1776 [facility] [id number] LDL/HDL Ratio 1.3 {ratio_units} (Normal) Range: 0.0-3.2 [...] COMPREHENSIVE Comments: PATIENT WAS FASTINGPERFORMED BY: LabCoSaint Clare's Hospital at Boonton TownshipEyrzca8791 [facility] [id number] (95658) ALT (SGPT) 12 [iU]/L (Normal) Range: 0-32 [...] Glucose, Serum 152 mg/dL (Abnormal) Range: 65-99 2-Qbm-623836:50 HgA1C , Office (03016) HgA1C , Office 6.7 % (Normal) Range: 4.6 - 7.1 :25 Magnesium, Serum 1.9 mg/dL (Normal) Comments: PATIENT WAS FASTINGPERFORMED BY: LabCoSaint Clare's Hospital at Boonton TownshipGwkjfk4508 [facility] [id number] Range: 1.6-2.3 :25 Microalb/Creat Ratio, Randm Ur Comments: PATIENT WAS FASTINGPERFORMED BY: Integrity Tracking Psydje4880 [address] RoadDublin [place] [id number] Microalb/Creat Ratio 2652.0 {mg/g_creat} Range: 0.0-30.0 (Abnormal) Microalbumin, Urine 2482.3 ug/mL (Normal) Comments: Results confirmed ondilution. Creatinine, Urine 93.6 mg/dL (Normal) PTH, Intact 26 pg/mL (Normal) Comments: PATIENT WAS FASTINGPERFORMED BY: [facility] Fslqsn4548 [address] RoadDublin [place] [id number] :25 Range: 15-65 :25 Renal Panel (10) Comments: PATIENT WAS FASTINGPERFORMED BY: Integrity Tracking Emryzy4202 [address] RoadDublin [place] [id number] Phosphorus, Serum 4.3 mg/dL (Normal) Range: 2.5-4.5 :25 Thyroxine (T4) Free, Direct, S Comments: PATIENT WAS FASTINGPERFORMED BY: [employer].[facility] Houcvo6374 [address] RoadDublin [place] [id number] T4,Free(Direct) 1.08 ng/dL (Normal) Range: 0.82-1.77 : TSH 2.980 {uIU/mL} Comments: PATIENT WAS FASTINGPERFORMED BY: Integr[employer] Tracking Rbldvp0975 [address] RoadDublin [place] [id number] 25 (Normal) Range: 0.450-4.500 : Vitamin D, 25-Hydroxy 37.1 ng/mL (Normal) Comments: PATIENT WAS FASTINGPERFORMED BY: [facility] Ayukzx1552 [address] RoadDublin [place] [id number] 25 Range: 30.0-100.0 Comments: Vitamin D deficiency has been defined by the Five Points ofMedicine and an Endocrine Society practice guideline as alevel of serum 25-OH vitamin D less than 20 ng/mL (1,2).The Endocrine Society went on to further define vitamin Dinsufficiency as a level between 21 and 29 ng/mL (2).1. IOM (Five Points of Medicine). 2010. Dietary reference intakes for calcium and D. [place]: The National Academies Press.2. Mira MF, Rosette [place], Tommy SWAIN, et al. Evaluation, treatment, and prevention of vitamin D deficiency: an Endocrine Society clinical practice guideline. JCEM. 2010; 96(7):6821-30. :25 CBC W/AUTO DIFF WBC (67324) Comments: PATIENT WAS FASTINGPERFORMED BY: EVE LabSelect Specialty Hospital-Saginaw6370 [facility] [id number] Immature Grans (Abs) 0.0 {x10E3/uL} (Normal) Range: [...] 3.77-5.28 WBC 4.2 {x10E3/uL} (Normal) Range: 3.4-10.8 :25 METABOLIC PANEL, COMPREHENSIVE Comments: PATIENT WAS FASTINGPERFORMED BY: Tripwire6370 [facility] [id number]; non- emergent till apt (38735) ALT (SGPT) 10 [iU]/L (Normal) Range: 0-32 [...] mg/dL (Abnormal) Range: 65-99 03-Aug-20169:25 LIPID PANEL (56008) Comments: PATIENT WAS FASTINGPERFORMED BY: Integrity TrackingSaint Clare's Hospital at Boonton TownshipZfutwc9842 [facility] [id number] LDL/HDL Ratio 0.9 {ratio_units} (Normal) Range: 0.0-3.2 Comments: LDL/HDL Ratio Men Women 1/2 Avg.Risk 1.0 1.5 Av g.Risk 3.6 3.2 2X Avg.Risk 6.2 5.0 3X Avg.Risk 8.0 6.1 LDL Cholesterol Calc 65 mg/dL (Normal) Range: 0-99 VLDL Cholesterol Cesar 19 mg/dL (Normal) Range: 5-40 HDL Cholesterol 75 mg/dL (Normal) Triglycerides 93 mg/dL (Normal) Range: 0-149 Cholesterol, Total 159 mg/dL (Normal) Range: 100-199 :54 HgA1C , Office (35473) HgA1C , Office 6.6 % (Normal) Range: 4.6 - 7.1 :1 Magnesium, Serum 2.1 mg/dL (Normal) Comments: PATIENT WAS FASTINGPERFORMED BY: ChamateNorth Carolina Specialty Hospital [id number] 2 Range: 1.6-2.3 :12 Microalb/Creat Ratio, Randm Ur Comments: PATIENT WAS FASTINGPERFORMED BY: ChamateNorth Carolina Specialty Hospital [id number] Microalb/Creat Ratio 1863.4 {mg/g_creat} (Abnormal) Range: 0.0-30.0 Microalbumin, Urine 1416.2 ug/mL (Normal) Comments: Results confirmed ondilution. Creatinine, Urine 76.0 mg/dL (Normal) :12 Microscopic Examination Comments: PATIENT WAS FASTINGPERFORMED BY: Tripwire6370 MongoSluicein [place] [id number] Bacteria None seen (Normal) Mucus Threads Present (Normal) Cast Type Hyaline casts (Normal) Casts Present {/lpf} (Abnormal) Epithelial Cells (non 0-10 {/hpf} Range: 0 - 10 renal) (Normal) RBC 3-10 {/hpf} Range: 0 - 2 (Abnormal) WBC 6-10 {/hpf} Range: 0 - 5 (Abnormal) PTH, Intact 36 pg/mL (Normal) Comments: PATIENT WAS FASTINGPERFORMED BY: Chamatein [place] [id number] 0:12 Range: 15-65 Vitamin D, 25-Hydroxy 42.9 ng/mL (Normal) Comments: PATIENT WAS FASTINGPERFORMED BY: Tripwire6370 [facility] [id number] 0:12 Range: 30.0-100.0 Comments: Vitamin D deficiency has been defined by the Five Points ofMedicine and an Endocrine Society practice guideline as alevel of serum 25-OH vitamin D less than 20 ng/mL (1,2).The Endocrine Society went on to further define vitamin Dinsufficiency as a level between 21 and 29 ng/mL (2).1. IOM (Five Points of Medicine). 2010. Dietary reference intakes for calcium and D. [place]: The National AcademOm[employer] Press.2. Mira MF, Rosette [place], Tommy SWAIN, et al. Evaluation, treatment, and prevention of vitamin D deficiency: an Endocrine Society clinical practice guideline. JCEM. 2010; 96(7):1911-30. 60-Smg-767319:12 URINALYSIS, W/ MICRO (47304) Comments: PATIENT WAS FASTINGPERFORMED BY: Tripwire6[address] [facility] University HospitalMedPAC TechnologiesNorth Carolina Specialty Hospital [id number] Microscopic Examination See below: (Normal) Comments: Microscopic was indicated and was performed. Nitrite, Urine Negative (Normal) Urobilinogen,Semi-Qn 0.2 mg/dL (Normal) Range: 0.2-1.0 Bilirubin Negative (Normal) Occult Blood Negative (Normal) Ketones Negative (Normal) Glucose Negative (Normal) Protein 4+ (Abnormal) WBC Esterase Trace (Abnormal) Appearance Clear (Normal) Urine-Color Yellow (Normal) pH 6.0 (Normal) Range: 5.0-7.5 Specific Barling 1.015 (Normal) Range: 1.005-1.030 15-Bpx-181390:12 CBC W/AUTO DIFF WBC (17005) Comments: PATIENT WAS FASTINGPERFORMED BY: Bid Nerd Amdssj4675 [facility] [id number] Immature Grans (Abs) 0.0 {x10E3/uL} (Normal) Range: [...] 3.77-5.28 WBC 6.2 {x10E3/uL} (Normal) Range: 3.4-10.8 47-Nws-112772:12 METABOLIC PANEL, COMPREHENSIVE Comments: PATIENT WAS FASTINGPERFORMED BY: LabCoSaint Clare's Hospital at Boonton TownshipSrnumu1050 [facility] [id number] (39503) ALT (SGPT) 14 [iU]/L (Normal) Range: 0-32 [...] Glucose, Serum 154 mg/dL (Abnormal) Range: 65-99 81-Hsp-056393:12 LIPID PANEL (58642) Comments: PATIENT WAS FASTINGPERFORMED BY: cielo24 [facility] [id number] LDL/HDL Ratio 0.7 {ratio_units} (Normal) Range: 0.0-3.2 Comments: LDL/HDL Ratio Men Women 1/2 Avg.Risk 1.0 1.5 Av g.Risk 3.6 3.2 2X Avg.Risk 6.2 5.0 3X Avg.Risk 8.0 6.1 LDL Cholesterol Calc 49 mg/dL (Normal) Range: 0-99 VLDL Cholesterol Cesar 14 mg/dL (Normal) Range: 5-40 HDL Cholesterol 75 mg/dL (Normal) Triglycerides 68 mg/dL (Normal) Range: 0-149 Cholesterol, Total 138 mg/dL (Normal) Range: 100-199 39-Vou-199133:50 HgA1C , Office (11770) HgA1C , Office 6.7 % (Normal) Range: 4.6 - 7.1 26-Rci-198075:36 VITAMIN B-12 (CYANOCOBALAMIN) Comments: PATIENT WAS FASTINGPERFORMED BY: cielo24 [facility] [facility] [id number] (97074) Vitamin B12 802 pg/mL (Normal) Range: 211-946 26-Cmt-491148:36 LIPID PANEL (37456) Comments: PATIENT WAS FASTINGPERFORMED BY: LabCoSaint Clare's Hospital at Boonton TownshipAnbran2828 [facility] [id number] LDL/HDL Ratio 0.8 {ratio_units} (Normal) Range: 0.0-3.2 [...] Cholesterol, Total 161 mg/dL (Normal) Range: 100-199 80-Ofb-002799:36 LDH (LD) (LACTATE DEHYDROGENASE) Comments: PATIENT WAS FASTINGPERFORMED BY: Integrity TrackingSaint Clare's Hospital at Boonton TownshipRdmopl2021 [facility] [id number] (75315) LDH 217 [iU]/L (Normal) Range: 119-226 45-Ftu-508906:36 CBC W/AUTO DIFF WBC (10602) Comments: PATIENT WAS FASTINGPERFORMED BY: Integrity TrackingSaint Clare's Hospital at Boonton TownshipSjbkxk9154 [facility] [id number] Immature Grans (Abs) 0.0 {x10E3/uL} (Normal) Range: [...] 3.77-5.28 WBC 10.6 {x10E3/uL} (Normal) Range: 3.4-10.8 48-Hwp-085147:36 METABOLIC PANEL, COMPREHENSIVE Comments: PATIENT WAS FASTINGPERFORMED BY: LabCoSaint Clare's Hospital at Boonton TownshipDenugw9982 [facility] [id number] (21621) ALT (SGPT) 15 [iU]/L (Normal) Range: 0-32 [...] Glucose, Serum 137 mg/dL (Abnormal) Range: 65-99 57-Qcy-689271:36 TSH (44372) Comments: PATIENT WAS FASTINGPERFORMED BY: Tripwire6370 [facility] [id number] TSH 0.560 {uIU/mL} (Normal) Range: 0.450-4.500 :02 Renal function Panel (09258) Comments: PATIENT WAS FASTINGPERFORMED BY: Tripwire6370 [facility] [id number] Albumin, Serum 3.7 g/dL (Normal) Range: 3.5-4.8 [...] 137 mg/dL (Abnormal) Range: 65-99 :02 MAGNESIUM (18855) Comments: PATIENT WAS FASTINGPERFORMED BY: [employer]6370 [facility] [id number] Magnesium, Serum 2.2 mg/dL (Normal) Range: 1.6-2.3 :02 MICROALBUMIN: CREATININE RATIO Comments: PATIENT WAS FASTINGPERFORMED BY: LabSelect Specialty Hospital-Saginaw6370 [facility] [id number] (01733) AND (18562) Microalb/Creat Ratio 2038.7 {mg/g_creat} (Abnormal) Range: 0.0-30.0 Microalbumin, Urine 1223.2 ug/mL (Normal) Comments: Results confirmed ondilution. Creatinine, Urine 60.0 mg/dL (Normal) :02 CBC WITH MANUAL DIFF Comments: PATIENT WAS FASTINGPERFORMED BY: LabeDealyaSaint Clare's Hospital at Boonton TownshipRdajpa1288 [facility] [id number] Information: [id number] (43270) Immature Grans (Abs) 0.0 {x10E3/uL} (Normal) Range: [...] {x10E3/uL} (Normal) Range: 3.4-10.8 :02 HGB A1C (01307) Comments: PATIENT WAS FASTINGPERFORMED BY: [place] Iakvjr7469 [facility] [id number] Hemoglobin A1c 6.4 % (Abnormal) Range: 4.8-5.6 Comments: . Pre-diabetes: 5.7 - 6.4 Diabetes: >6.4 Glycemic control for adults with diabetes: <7.0 :02 Lipid Panel (87369) Comments: PATIENT WAS FASTINGPERFORMED BY: [employer]70 [facility] [id number] LDL/HDL Ratio 1.1 {ratio_units} (Normal) Range: 0.0-3.2 [...] Cholesterol, Total 160 mg/dL (Normal) Range: 100-199 26-Rbo-047638:03 HgA1C , Office (79674) HgA1C , Office 6.1 % (Normal) Range: 4.6 - 7.1 :24 CBC W/AUTO DIFF WBC Comments: PATIENT WAS FASTINGPERFORMED BY: [employer].CoSaint Clare's Hospital at Boonton TownshipIucipt0002 [facility] [id number] Information: [id number] (24367) Immature Grans (Abs) 0.0 {x10E3/uL} (Normal) Range: [...] CREATININE RATIO Comments: PATIENT WAS FASTINGPERFORMED BY: LabCoSaint Clare's Hospital at Boont[facility] TownshipKphrxt2497 [facility] [id number] (35783) AND (31919) Microalb/Creat Ratio 1223.8 {mg/g_creat} (Abnormal) Range: 0.0-30.0 Microalbumin, Urine 1012.1 ug/mL (Abnormal) Range: 0.0-17.0 Comments: Results confirmed ondilution. Creatinine, Urine 82.7 mg/dL (Normal) Range: 15.0-278.0 :24 METABOLIC PANEL, COMPREHENSIVE Comments: PATIENT WAS FASTINGPERFORMED BY: [place] [facility] [id number] (20790) ALT (SGPT) 12 [iU]/L (Normal) Range: 0-32 [...] Glucose, Serum 128 mg/dL (Abnormal) Range: 65-99 :24 LIPID PANEL (11452) Comments: PATIENT WAS FASTINGPERFORMED BY: [employer]the[employer] Therapeuticsox RoadDublin [place] [id number] LDL/HDL Ratio 1.1 {ratio_units} (Normal) Range: 0.0-3.2 [...] Cholesterol, Total 150 mg/dL (Normal) Range: 100-199 80-Gmk-47933:30 CBC W/Diff, Automated Comments: [facility] [address] [place], [place], [address] Absolute Lymph 0.83 {X10_3/ul} (Normal) Range: 0.83-4.51 [...] 4.2-5.4 WBC 4.5 K/mm3 (Normal) Range: 4.4-11.0 :30 Hemoglobin A1c Comments: [facility] [address] [place], [place], [address] HGB A1C 6.1 % (Normal) Range: 4.2-6.3 :30 Magnesium Comments: [facility] [address] [place], [place], [address] MG 1.8 mg/dL (Normal) Range: 1.8-2.4 :30 Protein+Creatinine Ratio,Urine Comments: [facility] [address]xwvixl[address] [place], [place], [address] PROT:CRE RATIO 2121 {mg/g_CRE} (Abnormal) Range: 0-200 PROTEIN,UR.RAN. 164.2 mg/dL (Abnormal) UR CREAT 77.40 mg/dL (Normal) :30 Renal Profile Comments: [address] [place], [place], [address] CO2 27.0 mmol/L (Normal) Range: 21.0-32.0 CL [...] 126 mg/dLsuggests DIABETES MELLITUS per A.D.A. criteria. 65-Qhw-90504:00 24 HR UR Creatinine Clearance Comments: [facility] [address] [place], [place], [address] CREAT CLEARANCE 24 ml/min (Abnormal) Range: 100-200 URINE CREAT 20.6 mg/dL (Normal) EST GFR - AA 38 mL/min (Abnormal) Comments: GFR Calc EST GFR 31 mL/min (Abnormal) Comments: Non- GFR Calc SERUM CREAT 1.7 mg/dL (Abnormal) Range: 0.6-1.0 UR TOTAL VOLUME 2800 mL (Normal) UR COLLECT TIME 24.0 {HOURS} (Normal) 87-Qmd-21921:00 Protein, Urine 24HR Comments: [facility] [address] [place], [place], [address] 24hr UR PROTEIN 1178.8 {mg/24HR} (Abnormal) URINE PROTEIN 42.1 mg/dL (Abnormal) UR TOTAL VOLUME 2800 mL (Normal) UR COLLECT TIME 24.0 {HOURS} (Normal) 2-Lgy-718807:29 Metabolic Panel, Basic Comments: PATIENT NOT FASTINGPERFORMED BY: LabCoSaint Clare's Hospital at Boont[facility] TownshipRrntsr9250 [facility] [id number] Information: [id number] (60344) Calcium, Serum 9.3 mg/dL (Normal) Range: 8.7-10.3 [...] Glucose, Serum 102 mg/dL (Abnormal) Range: 65-99 :39 Metabolic Panel, Basic Comments: tuesday; PATIENT NOT FASTINGPERFORMED BY: LabeDealyaSaint Clare's Hospital at Boonton TownshipUvgcqs6166 [facility] [id number] Information: [id number] (77269) Calcium, Serum 9.0 mg/dL (Normal) Range: 8.7-10.3 [...] Glucose, Serum 149 mg/dL (Abnormal) Range: 65-99 62-Xmh-114193:32 HgA1C , Office (72148) HgA1C , Office 6.2 % (Normal) Range: 4.6 - 7.1 :31 Rapid Strep Test, Office (05188) Comments: neg Rapid Strep Test, Office Negative (Normal) :06 THROAT CULTURE (12270) Comments: PATIENT NOT FASTINGPERFORMED BY: LabCoSaint Clare's Hospital at Boonton TownshipPyictg7472 [facility] [id number] Information: [id number] Result 1 RRF (Normal) Comments: Routine respiratory luis Upper Respiratory Culture Final report (Normal) :52 TSH (95938) Comments: PATIENT WAS FASTINGPERFORMED BY: LabCo Brftye3659 [facility] [id number] TSH 2.190 {uIU/mL} (Normal) Range: 0.450-4.500 :52 Vitamin D Hydroxy (95972) Comments: PATIENT WAS FASTINGPERFORMED BY: [facility] Htfmnb2297 [facility] [id number] Vitamin D, 25-Hydroxy 43.8 ng/mL (Normal) Range: 30.0-100.0 Comments: Vitamin D deficiency has been defined by the [place] of[place] and an Endocrine Society practice guideline as alevel of serum 25-OH vitamin D less than 20 ng/mL (1,2).The Endocrine Society went on to further define vitamin Dinsufficiency as a level between 21 and 29 ng/mL (2).1. IOM ([place] Medicine). 2010. Dietary reference intakes for calcium and D. [place]: The National Academies Press.2. Mira MF, Rosette LOPEZ, Tommy SWAIN, et al. Evaluation, treatment, and prevention of vitamin D deficiency: an Endocrine Society clinical practice guideline. JCEM. 2010; 96(7):1911-30. :52 LIPID PANEL (48003) Comments: PATIENT WAS FASTINGPERFORMED BY: LabCoSaint Clare's Hospital at Boonton TownshipLofail0944 [facility] [id number] LDL/HDL Ratio 1.3 {ratio_units} (Normal) Range: 0.0-3.2 [...] auto diff Comments: PATIENT WAS FASTINGPERFORMED BY: [facility]6370 [facility] [id number] Information: [id number] (12273) Immature Grans (Abs) 0.0 {x10E3/uL} (Normal) Range: [...] PANEL, COMPREHENSIVE Comments: PATIENT WAS FASTINGPERFORMED BY: [facility]6370 [facility] [id number] (05794) ALT (SGPT) 19 [iU]/L (Normal) Range: 0-32 [...] Glucose, Serum 127 mg/dL (Abnormal) Range: 65-99 3-Ybh-997065:08 HgA1C , Office (10556) HgA1C , Office 6.4 % (Normal) Range: 4.6 - 7.1 5-Uly-798689:00 Creatinine Clearance Comments: PATIENT NOT FASTINGPERFORMED BY: LabCoSaint Clare's Hospital at Boonton TownshipCkvkzp9946 [facility] [id number] Information: [id number] S TART Creatinine Clearance 33 mL/min (Abnormal) Range: 88-128 Comments: The above range is based on 1.73 square meter average body surfacearea. Creatinine, Ur 24hr 642.0 {mg/24_hr} (Abnormal) Range: 800.0-1800.0 Creatinine, Urine 34.7 mg/dL (Normal) Range: 15.0-278.0 eGFR If Africn Am 43 mL/min/1.73 (Abnormal) eGFR If NonAfricn Am 37 mL/min/1.73 (Abnormal) Creatinine, Serum 1.37 mg/dL (Abnormal) Range: 0.57-1.00 0-Zmk-114423:00 Protein Total, Qn, 24-Hr Comments: PATIENT NOT FASTINGPERFORMED BY: [facility] Zdhmdv2539 [facility] [id number] Urine Prot,24hr calculated 1309.8 {mg/24_hr} (Abnormal) Range: 30.0-150.0 Protein,Total,Urine 70.8 mg/dL (Abnormal) Range: 0.0-15.0 09-Oct-20149:01 CBC W/Diff, Automated Comments: Test performed at:[facility] [address]jpai[address] [place] [address] Absolute Neut 3.1 {X10_3/uL} (Normal) [...] Range: 4.4-11.0 :01 Magnesium Comments: Test performed at:[facility] [address] [place] [address] MG 2.0 mg/dL (Normal) Range: 1.8-2.4 :01 Protein+Creatinine Ratio,Urine Comments: Test performed at:[facility] M[address] [place] [address] PROT:CRE RATIO 2232 {mg/g_CRE} (Abnormal) Range: 0-200 PROTEIN,UR.RAN. 160.3 mg/dL (Abnormal) UR CREAT 71.8 mg/dL (Normal) :01 Renal Profile Comments: Test performed at:[facility] Bilmzklh[address] [place] [address] 393211 CO2 32.0 mmol/L (Normal) Range: 21.0-32.0 CL [...] mg/dL (Normal) Range: 70-110 :08 LIPID PANEL (29727) Comments: PATIENT WAS FASTINGPERFORMED BY: LabCoSaint Clare's Hospital at Boonton TownshipNjtrah2792 [facility] [id number] LDL/HDL Ratio 1.0 {ratio_units} (Normal) Range: 0.0-3.2 [...] Cholesterol, Total 149 mg/dL (Normal) Range: 100-199 75-Yjt-92343:08 METABOLIC PANEL, Comments: PATIENT WAS FASTINGPERFORMED BY: LabCoSaint Clare's Hospital at Boont[facility] TownshipHiirsm7214 [facility] [id number] Information: [id number] COMPREHENSIVE (81040) ALT (SGPT) 29 [iU]/L (Normal) Range: 0-32 [...] Glucose, Serum 159 mg/dL (Abnormal) Range: 65-99 :59 HgA1C , Office (30630) HgA1C , Office 6.5 % (Normal) Range: 4.6 - 7.1 :54 CBC W/AUTO DIFF WBC Comments: PATIENT WAS FASTINGPERFORMED BY: LabCoSaint Clare's Hospital at Boonton TownshipKrixuw4548 [facility] [id number] Information: [id number] (60089) Immature Grans (Abs) 0.0 {x10E3/uL} (Normal) Range: [...] PANEL, COMPREHENSIVE Comments: PATIENT WAS FASTINGPERFORMED BY: HyprKey70 [facility] [id number]; non- emergent till apt (08894) ALT (SGPT) 13 [iU]/L (Normal) Range: 0-32 [...] Glucose, Serum 142 mg/dL (Abnormal) Range: 65-99 :54 LIPID PANEL (86473) Comments: PATIENT WAS FASTINGPERFORMED BY: Fipeo6370 [facility] [id number] LDL/HDL Ratio 1.1 {ratio_units} (Normal) Range: 0.0-3.2 [...] Cholesterol, Total 140 mg/dL (Normal) Range: 100-199 :29 HgA1C , Office (55330) HgA1C , Office 6.6 % (Normal) Range: 4.6 - 7.1 :12 CBC W/Diff, Automated Comments: Test performed at:[facility] [address], [place] [address] ; handled by Dr. Santana Absolute Lymph [...] Range: 4.4-11.0 :12 Magnesium Comments: Test performed at:[facility] [address] [place] [address] MG 2.0 mg/dL (Normal) Range: 1.8-2.4 :12 Microalb:Creat Ratio,Random UR Comments: Test performed at:[facility] [address]ppzycteh[address] [place] [address] ; Dr. Angelo LING:CREAT 1483.0 {mg/g_CRE} (Abnormal) MICROALBUMIN,UR 918.0 mg/L (Normal) UR CREAT 61.9 mg/dL (Normal) :12 Renal Profile Comments: Test performed at:[facility] Mjanwokeke[address] [place] [address] CO2 29.0 mmol/L (Normal) Range: 21.0-32.0 CL [...] 126 mg/dLsuggests DIABETES MELLITUS per A.D.A. criteria. 33-Iqv-327143:20 LIPID PANEL (40652) Comments: PATIENT WAS FASTINGPERFORMED BY: Integrity TrackingSaint Clare's Hospital at Boonton TownshipCyklel4827 [facility] [id number] LDL/HDL Ratio 1.0 {ratio_units} (Normal) Range: 0.0-3.2 [...] Cholesterol, Total 151 mg/dL (Normal) Range: 100-199 64-Jlv-718662:20 METABOLIC PANEL, Comments: PATIENT WAS FASTINGPERFORMED BY: Integrity TrackingSaint Clare's Hospital at Boonton TownshipRpfsfj1078 [facility] [id number] Information: [id number] COMPREHENSIVE (73393) ALT (SGPT) 16 [iU]/L (Normal) Range: 0-32 [...] Glucose, Serum 148 mg/dL (Abnormal) Range: 65-99 79-Asn-715468:21 CREATININE CLEARANCE Comments: PATIENT WAS FASTINGPERFORMED BY: Integrity TrackingSaint Clare's Hospital at Boonton TownshipOyatec9753 [facility] [id number] Information: [id number] START 04/02/14@9AM FINISH 04/03/14 6:00 AM (23765) Creatinine Clearance 42 mL/min (Abnormal) Range: 88-128 Comments: The above range is based on 1.73 square meter average body surfacearea. Creatinine, Ur 24hr 812.3 {mg/24_hr} (Normal) Range: 800.0-1800.0 Creatinine, Urine 28.5 mg/dL (Normal) Range: 15.0-278.0 eGFR If Africn Am 45 mL/min/1.73 (Abnormal) eGFR If NonAfricn Am 39 mL/min/1.73 (Abnormal) Creatinine, Serum 1.33 mg/dL (Abnormal) Range: 0.57-1.00 92-Kte-987528:21 Total Protein,24 Hour Urine Comments: PATIENT WAS FASTINGPERFORMED BY: Integrity TrackingSaint Clare's Hospital at Boonton TownshipDapxtp8247 [facility] [id number] (62318) Prot,24hr calculated 1559.0 {mg/24_hr} (Abnormal) Range: 30.0-150.0 Protein,Total,Urine 54.7 mg/dL (Abnormal) Range: 0.0-15.0 :57 LIPID PANEL (12330) Comments: PATIENT WAS FASTINGPERFORMED BY: Integrity Tracking Awoouw7146 [facility] [id number] LDL/HDL Ratio 1.1 {ratio_units} (Normal) Range: 0.0-3.2 [...] Cholesterol, Total 161 mg/dL (Normal) Range: 100-199 09-Jan-20148:57 CBC WITH MANUAL DIFF Comments: PATIENT WAS FASTINGPERFORMED BY: LabCoSaint Clare's Hospital at Boonton TownshipNxcvxi4337 [facility] [id number] Information: [id number] (24720) Immature Grans (Abs) 0.0 {x10E3/uL} (Normal) Range: [...] PANEL, COMPREHENSIVE Comments: PATIENT WAS FASTINGPERFORMED BY: LabSelect [facility]ty Hospital-[facility]aginaw6370 [facility] [id number] (47159) ALT (SGPT) 10 [iU]/L (Normal) Range: 0-32 [...] 0 Comments: Result Units: mg/dL AdultPerformed at: CB - [facility] Mwueai8978 [place], [place] [address]Vsc Director: Yousuf Bernardo PhD, Phone: [phone] C4 37 (Abnormal) Range: 9-36 0 [...] 4.2-5.4 WBC 4.6 K/mm3 (Normal) Range: 4.4-11.0 :00 CMP GAP 3 (Abnormal) Range: 5-15 CO2 [...] 75.6 mg/dL (Abnormal) CREU 49.3 mg/dL (Normal) 35-Lfo-04504:21 CBC WITH MANUAL DIFF Comments: PATIENT WAS FASTINGPERFORMED BY: LabCoSaint Clare's Hospital at Boont[facility] TownshipTrbnov5196 [facility] [id number] Information: [id number] (46378) Immature Grans (Abs) 0.0 {x10E3/uL} (Normal) Range: [...] 3.77-5.28 WBC 4.5 {x10E3/uL} (Normal) Range: 3.4-10.8 04-Xze-39632:21 METABOLIC PANEL, COMPREHENSIVE Comments: PATIENT WAS FASTINGPERFORMED BY: LabCoSaint Clare's Hospital at Boont[facility] TownshipBdafdx0798 [facility] [id number] (71297) ALT (SGPT) 16 [iU]/L (Normal) Range: 0-32 [...] Glucose, Serum 132 mg/dL (Abnormal) Range: 65-99 14-Eac-815450:53 CREATININE CLEARANCE Comments: PATIENT NOT FASTINGPERFORMED BY: Integrity Tracking Qnubtx2631 [facility] [id number] Information: [id number] START 10/30/13@8AM F INISH 10/31/13@8AM 2650ML (73478) Creatinine Clearance 44 mL/min (Abnormal) Range: 88-128 Comments: The above range is based on 1.73 square meter average body surfacearea. Creatinine, Ur 24hr 877.2 {mg/24_hr} (Normal) Range: 800.0-1800.0 Creatinine, Urine 33.1 mg/dL (Normal) Range: 15.0-278.0 eGFR If Africn Am 44 mL/min/1.73 (Abnormal) eGFR If NonAfricn Am 38 mL/min/1.73 (Abnormal) Creatinine, Serum 1.37 mg/dL (Abnormal) Range: 0.57-1.00 :53 Total Protein,24 Hour Urine Comments: PATIENT NOT FASTINGPERFORMED BY: Bid NerdSaint Clare's Hospital at Boonton TownshipAjands5010 [facility] [id number] (26772) Prot,24hr calculated 3458.3 {mg/24_hr} (Abnormal) Range: 30.0-150.0 Protein,Total,Urine 130.5 mg/dL (Abnormal) Range: 0.0-15.0 78-Pon-638736:31 HgA1C , Office (67649) HgA1C , Office 6.4 % (Normal) Range: 4.6 - 7.1 07-Pzl-628376:27 Microscopic Examination Comments: PATIENT WAS FASTINGPERFORMED BY: Integrity TrackingWinslow Indian Health Care CenterLoxdzu1410 [facility] [id number] Bacteria Few (Normal) Mucus Threads Present (Normal) Epithelial Cells (non renal) 0-10 {/hpf} (Normal) Range: 0 - 10 RBC 3-10 {/hpf} (Abnormal) Range: 0 - 2 WBC 6-10 {/hpf} (Abnormal) Range: 0 - 5 :32 LIPID PANEL (70949) Comments: PATIENT WAS FASTINGPERFORMED BY: Integrity TrackingWinslow Indian Health Care CenterJaihfv1203 [facility] [id number] LDL/HDL Ratio 1.0 {ratio_units} (Normal) Range: 0.0-3.2 [...] CREATININE RATIO Comments: PATIENT WAS FASTINGPERFORMED BY: Integrity TrackingSaint Clare's Hospital at Boonton TownshipHdamcl1000 [facility] [id number] (55032) AND (34831) Microalb/Creat Ratio 1998.9 {mg/g_creat} (Abnormal) Range: 0.0-30.0 Creatinine, Urine 73.4 mg/dL (Normal) Range: 15.0-278.0 Microalbumin, Urine 1467.2 ug/mL (Abnormal) Range: 0.0-17.0 :32 URINALYSIS, W/ MICRO (82528) Comments: PATIENT WAS FASTINGPERFORMED BY: [employer].[facility]6370 [facility] [id number] Microscopic Examination See below: (Normal) Comments: Microscopic was indicated and was performed. Nitrite, Urine Negative (Normal) Urobilinogen,Semi-Qn 0.2 mg/dL (Normal) Range: 0.0-1.9 Bilirubin Negative (Normal) Occult Blood Trace (Abnormal) Ketones Negative (Normal) Glucose Negative (Normal) Protein 3+ (Abnormal) WBC Esterase Trace (Abnormal) Appearance Clear (Normal) Urine-Color Yellow (Normal) pH 6.5 (Normal) Range: 5.0-7.5 Specific Barling 1.015 (Normal) Range: 1.005-1.030 :32 CBC WITH MANUAL DIFF Comments: PATIENT WAS FASTINGPERFORMED BY: LabCynthia Ville 1787870 [facility] [id number] Information: [id number] (34383) Immature Grans (Abs) 0.0 {x10E3/uL} (Normal) Range: [...] PANEL, COMPREHENSIVE Comments: PATIENT WAS FASTINGPERFORMED BY: [facility]6370 [facility] [id number] (80600) ALT (SGPT) 16 [iU]/L (Normal) Range: 0-32 [...] Glucose, Serum 135 mg/dL (Abnormal) Range: 65-99 :32 VITAMIN B-12 (CYANOCOBALAMIN) Comments: PATIENT WAS FASTINGPERFORMED BY: LabCoSaint Clare's Hospital at Boonton TownshipQuguwx2780 [facility] [id number] (58124) Vitamin B12 >1999 pg/mL (Abnormal) Range: 211-946 :01 HgA1C , Office (45666) HgA1C , Office 6.4 % (Normal) Range: 4.6 - 7.1 :37 METABOLIC PANEL, COMPREHENSIVE Comments: PATIENT WAS FASTINGPERFORMED BY: LabCoSaint Clare's Hospital at Boonton TownshipAkupzv1894 [facility] [id number] (59637) ALT (SGPT) 12 [iU]/L (Normal) Range: 0-32 [...] Glucose, Serum 130 mg/dL (Abnormal) Range: 65-99 :37 Vitamin D Hydroxy (96628) Comments: PATIENT WAS FASTINGPERFORMED BY: Integrity Tracking Eapupj1545 [facility] [id number] Vitamin D, 25-Hydroxy 47.4 ng/mL (Normal) Range: 30.0-100.0 Comments: Vitamin D deficiency has been defined by the [place] ofMercy Health West Hospitalcine and an Endocrine Society practice guideline as alevel of serum 25-OH vitamin D less than 20 ng/mL (1,2).The Endocrine Society went on to further define vitamin Dinsufficiency as a level between 21 and 29 ng/mL (2).1. IOM ([place] of Medicine). 2010. Dietary reference intakes for calcium and D. [place]: The National Academies Press.2. Mira MF, Rosette [place], Tommy SWAIN, et al. Evaluation, treatment, and prevention of vitamin D deficiency: an Endocrine Society clinical practice guideline. JCEM. 2010; 96(7):1911-30. :37 LIPID PANEL (12009) Comments: PATIENT WAS FASTINGPERFORMED BY: Integrity Tracking Vvakcx5589 [facility] [id number] LDL/HDL Ratio 1.2 {ratio_units} (Normal) Range: 0.0-3.2 [...] MANUAL DIFF Comments: PATIENT WAS FASTINGPERFORMED BY: [employer].[facility]6370 [facility] [id number] Information: [id number] (84391) Immature Grans (Abs) 0.0 {x10E3/uL} (Normal) Range: [...] Qn, 24-Hr Comments: PATIENT NOT FASTINGPERFORMED BY: [employer]70 [facility] [id number] Information: ADD [id number] AND DRAW FEE 99 6660 VOLUME 2600 164LBS 5' '3 Urine Prot,24hr calculated 920.4 {mg/24_hr} Range: 30.0-150.0 (Abnormal) Protein,Total,Urine 35.4 mg/dL Range: 0.0-15.0 (Abnormal) : Written Authorization WAR (Normal) Comments: PATIENT NOT FASTINGPERFORMED BY: Bid Nerd Utuznh1917 [facility] [id number] Comments: Written Authorization Received.Authorization received from Chiqui BRICEÑO LPN [id number] by Marleen Sharma :52 Metabolic Panel, Basic Comments: PATIENT NOT FASTINGPERFORMED BY: Integrity Tracking Cpdzli0038 [facility] [id number] Information: ADD [id number] AND DRAW FEE 99 6660 VOLUME 2600 164LBS 5' '3 (89282) Calcium, Serum 9.7 mg/dL (Normal) Range: 8.6-10.2 [...] mg/dL (Abnormal) Range: 65-99 :52 CREATININE CLEARANCE (59157) Comments: PATIENT NOT FASTINGPERFORMED BY: Integrity TrackingSaint Clare's Hospital at Boonton TownshipOzxgel0487 [facility] [id number] Creatinine Clearance 46 mL/min (Abnormal) Range: 88-128 Comments: The above range is based on 1.73 square meter average body surfacearea. Creatinine, Ur 24hr 899.6 {mg/24_hr} (Normal) Range: 800.0-1800.0 Creatinine, Urine 34.6 mg/dL (Normal) Range: 15.0-278.0 :52 24 hour urine for Protein Comments: PATIENT NOT FASTINGPERFORMED BY: Integrity TrackingSaint Clare's Hospital at Boonton TownshipXqbmse9970 [facility] [id number] (49017) Microalb/Creat Ratio 695.4 {mg/g_creat} (Abnormal) Range: 0.0-30.0 Microalbumin, Urine 240.6 ug/mL (Abnormal) Range: 0.0-17.0 :13 HgA1C , Office (36846) HgA1C , Office 6.3 % (Normal) Range: 4.6 - 7.1 3-Gre-854411:01 Blood Glucose , Office (99802) Blood Glucose , Office 162 (Normal) 86-Eeh-145363:02 Microscopic Examination Comments: PATIENT NOT FASTINGPERFORMED BY: [facility] Nzigpz3597 [facility] [id number] Bacteria Few (Normal) Mucus Threads Present (Normal) Epithelial Cells (non renal) 0-10 {/hpf} (Normal) Range: 0 - 10 RBC 0-3 {/hpf} (Normal) Range: 0 - 3 WBC 0-5 {/hpf} (Normal) Range: 0 - 5 :43 ABDOMEN/PELVIS WITH CONTRAST Radiology Report See Note [...] Hebert M.D.October 19, 2012 at 2:42:14 PM [id number] Signed GP/GP If you are the referring physician and would like to consult [facility] theradiologist who provided this interpretation, please contact Yasmany Pond at [phone]. If this radiologist is unavailable, youwill be directed to another radiologist to assist. If y ou are a patient with a question regarding this report, pleasecontactyour referring physician directly. Professional Interpretation Provided By: [employer], Phone , These documents contain legally protected [...] retu rn or destructionofthese documents. Dictated on 10/19/121441 by Linda Hebert MDscribed on 10/19/121442 by ITS IMPORTSign by Misael Hebert MD on 10/19/12 1444 Sign by: Misael Hebert MD :59 TSH (84121) Comments: PATIENT WAS FASTINGPERFORMED BY: [facility]6370 [facility] [id number] TSH 1.230 {uIU/mL} (Normal) Range: 0.450-4.500 :59 LIPID PANEL (23974) Comments: PATIENT WAS FASTINGPERFORMED BY: [address] [id number] LDL/HDL Ratio 0.5 {ratio_units} (Normal) Range: 0.0-3.2 LDL Cholesterol Calc 47 mg/dL (Normal) Range: 0-99 Cholesterol, Total 149 mg/dL (Normal) Range: 100-199 HDL Cholesterol 91 mg/dL (Normal) Comments: According to ATP-III Guidelines, HDL-C >59 mg/dL is considered anegative risk factor for CHD. Triglycerides 57 mg/dL (Normal) Range: 0-149 VLDL Cholesterol Cesar 11 mg/dL (Normal) Range: 5-40 44-Sgf-746917:02 URINALYSIS, W/ MICRO Comments: PATIENT NOT FASTINGPERFORMED BY: [address] [id number] Information: [id number] ([id number]) Microscopic Examination See below: (Normal) Nitrite, Urine Negative (Normal) Bilirubin Negative (Normal) Urobilinogen,Semi-Qn 0.2 mg/dL (Normal) Range: 0.0-1.9 Occult Blood Negative (Normal) Ketones Negative (Normal) Glucose Negative (Normal) Protein 3+ (Abnormal) WBC Esterase Negative (Normal) Appearance Clear (Normal) Urine-Color Yellow (Normal) pH 5.5 (Normal) Range: 5.0-7.5 Specific Barling 1.015 (Normal) Range: 1.005-1.030 :59 CBC WITH MANUAL DIFF Comments: PATIENT WAS FASTINGPERFORMED BY: [place] [id number] [facility] [id number] Information: [id number] (15232) Immature Grans (Abs) 0.0 {x10E3/uL} (Normal) Range: [...] 3.77-5.28 WBC 4.8 {x10E3/uL} (Normal) Range: 3.4-10.8 33-Wmn-543452:59 METABOLIC PANEL, COMPREHENSIVE Comments: PATIENT WAS FASTINGPERFORMED BY: LabCoSaint [facility] Hospital at [facility]onton TownshipEakmbm0462 [facility] [id number] (18072) ALT (SGPT) 14 [iU]/L (Normal) Range: 0-32 [...] Glucose, Serum 104 mg/dL (Abnormal) Range: 65-99 6-Bgq-284989:37 HgA1C , Office (13185) HgA1C , Office 6.0 % (Normal) Range: 4.6 - 7.1 0-Geq-935090:31 CRE CREAT 1.3 mg/dL (Abnormal) Range: 0.6-1.0 8-May-95966:00 BRAIN W/WO CONTRAST Radiology Report See Note [...] Galan M.D.August 09, 2012 at 2:38:03 PM [id number] Signed PV/PV If you are the referring physician and would like to consult with theradiologist who provided this interpretation, please contact Donna Burnett M.D. at [phone]. If this radiologist is unavailable, youwillbe directed to another radiologist to assist. If you are a patient with a question regarding this report, pleasecontactyour referring physician d irectly. Professional Interpretation Provided By: [employer], Phone , These documents contain legally protected [...] 08/09/12 1441 Sign by: Donna Martin MD 69-Aic-768262:31 CBC with manual diff Comments: PATIENT NOT FASTINGPERFORMED BY: LabCoSaint [facility] Bo[facility] TownshipOcfbfl9810 [facility] [id number] Information: [id number] (18563) Immature Grans (Abs) 0.0 {x10E3/uL} (Normal) Range: [...] 3.77-5.28 WBC 3.2 {x10E3/uL} (Abnormal) Range: 4.0-10.5 79-Grp-497937:31 Metabolic Panel, Comprehensive Comments: PATIENT NOT FASTINGPERFORMED BY: LabCoSaint [facility] Boonton TownshipFvukuv7615 [facility] [id number] (10117) ALT (SGPT) 19 [iU]/L (Normal) Range: 0-32 [...] mg/dL (Abnormal) Range: 65-99 :31 LIPID PANEL (80642) Comments: PATIENT WAS FASTINGPERFORMED BY: Integrity TrackingSaint Clare's Hospital at Boonton TownshipBbmgzw9061 [facility] [id number] LDL/HDL Ratio 0.8 {ratio_units} (Normal) Range: 0.0-3.2 LDL Cholesterol Calc 61 mg/dL (Normal) Range: 0-99 VLDL Cholesterol Cesar 16 mg/dL (Normal) Range: 5-40 HDL Cholesterol 73 mg/dL (Normal) Comments: According to ATP-III Guidelines, HDL-C >59 mg/dL is considered anegative risk factor for CHD. Triglycerides 79 mg/dL (Normal) Range: 0-149 Cholesterol, Total 150 mg/dL (Normal) Range: 100-199 :31 CBC WITH MANUAL DIFF Comments: PATIENT WAS FASTINGPERFORMED BY: LabeDealyaSaint Clare's Hospital at Boonton TownshipBnmajs7218 [facility] [id number] Information: [id number] (23472) Immature Grans (Abs) 0.0 {x10E3/uL} (Normal) Range: [...] COMPREHENSIVE Comments: PATIENT WAS FASTINGPERFORMED BY: LabCoSaint [facility] Hospital at Boont[facility] TownshipUirchu2368 [facility] [id number] (13330) ALT (SGPT) 22 [iU]/L (Normal) Range: 0-32 [...] (Abnormal) Range: 65-99 :45 HgA1C , Office (59319) HgA1C , Office 6.1 % (Normal) Range: 4.6 - 7.1 51-Lbv-389725:16 CRE CREAT 1.1 mg/dL (Abnormal) Range: 0.6-1.0 30-Ffj-00629:00 BRAIN W/WO CONTRAST Radiology Report See Note [...] Galan M.D.February 02, 2012 at 5:10:18 PM [id number] Signed PV/PV If you are the referring physician and w sarahild like to consult with theradiologist who provided this interpretation, please contact Donna Burnett M.D. at [phone]. If this radiologist is unavailable, youwillbe directed to another radiol ogist to assist. If you are a patient with a question regarding this report, pleasecontactyour referring physician directly. Professional Interpretation Provided By: [employer], Phone ,Fa x [phone] These documents contain legally protected and confidential [...] 02/02/12 1255 by Donna Martin MDTranscribed on 02/02/12 1713 by ITS IMPORTSign by Donna Martin MD on 02/02/12 1714 S ign by: Donna Martin MD 96-Uud-529366:16 DEXA BONE DENSITY STUDY (HP) Radiology Report [...] Densitometry http://www.iscd.org3. National Osteoporosis Foundation http://www.nof.org Signed:David Coronel M.D.January 20, 2012 at 2:43:46 PM [id number] Signed KERA/KERA If you ar e the [...] ITS IMPORTSign by David Coronel MD on 01/20/121446 Sign by: David Coronel MD 61-Woa-697924:15 BILAT SCRN DIGITAL & CAD Radiology Report [...] Coronel M.D.January 20, 2012 at 1:20:11 PM [id number] Signed KERA/KERA If you are the referring physician and would like to consult with theradiologist who provided this interpretation, please contact Yasmany Parnell at . If this radiologist is unavailable,youwill be directed to another radiologist to assist. If you are a patient with a question regarding this report, pleasecontactyour referring physician directly. Professional Interpretation Provided By: [employer], Phone , These documents contain legally protected [...] 01/20/12 1324 Sign by: David Coronel MD 4-Gpy-054057:56 PELVIC (NON ) Radiology Report See Note [...] Vuong M.D.January 10, 2012 at 8:39:09 PM [phone] Signed JL/JOHNNY If you are the referring physician and would like to consult with theradiologist who provided this inte rpretation, please contact Radha Vuong M.D. at [phone]. If this radiologist is unavailable, you will bedirected to another radiologist to assist. If you are a patient with a question regarding this r eport, pleasecontactyour referring physician directly. Professional Interpretation Provided By: [employer], Phone , PROCEDURE: ULTRASOUND OF THE FEMALE [...] Vuong M.D.January 10, 2012 at 8:40:07 PM [id number] Signed JL/JL If you are the referring physician and would like to consult with theradiologist who provided this interpretation, please contact Radha Vuong M.D. at [phone]. If this radiologist is unavailable, you will bedirected to another radiologist to assist. If you are a patient with a question regarding this report, pleasecontactyour referring ysician directly. Professional Interpretation Provided By: [employer], Phone , These documents contain legally protected [...] destructionofthese documents. Dictated on 01/10/12 1309 by TATIANA VUONG MDDelaware Hospital for the Chronically Ill on 01/11/12 1113 by ITS IMPORTSign by RADHA VUONG MD on 01/11/12 1114 Sign by: RADHA VUONG MD :35 MICROALBUMIN: CREATININE RATIO Comments: PATIENT WAS FASTINGPERFORMED BY: Integrity TrackingSaint Clare's Hospital at Boonton TownshipTtflsy3239 [facility] [id number] (85362) AND (48501) Microalb/Creat Ratio 829.4 {mg/g_creat} (Abnormal) Range: 0.0-30.0 Microalbumin, Urine 437.1 ug/mL (Abnormal) Range: 0.0-17.0 Creatinine, Urine 52.7 mg/dL (Normal) Range: 15.0-278.0 :35 CBC WITH MANUAL DIFF Comments: PATIENT WAS FASTINGPERFORMED BY: Cylance LabeDealya Etblve7546 [facility] [id number] Information: [id number] (77913) Immature Grans (Abs) 0.0 {x10E3/uL} (Normal) Range: [...] COMPREHENSIVE Comments: PATIENT WAS FASTINGPERFORMED BY: LabCoSaint Clare's Hospital at Boonton TownshipCyekhh3231 [facility] [id number] (68903) ALT (SGPT) 15 [iU]/L (Normal) Range: 0-32 [...] mg/dL (Abnormal) Range: 65-99 :35 LIPID PANEL (87182) Comments: PATIENT WAS FASTINGPERFORMED BY: Integrity TrackingSaint Clare's Hospital at Boonton TownshipByqudq9301 [facility] [id number] LDL/HDL Ratio 0.9 {ratio_units} (Normal) Range: 0.0-3.2 LDL Cholesterol Calc 72 mg/dL (Normal) Range: 0-99 HDL Cholesterol 83 mg/dL (Normal) Comments: According to ATP-III Guidelines, HDL-C >59 mg/dL is considered anegative risk factor for CHD. VLDL Cholesterol Cesar 18 mg/dL (Normal) Range: 5-40 Triglycerides 90 mg/dL (Normal) Range: 0-149 Cholesterol, Total 173 mg/dL (Normal) Range: 100-199 :15 HgA1C , Office (94465) HgA1C , Office 6.2 % (Normal) Range: 4.6 - 7.1 :30 CBC WITH MANUAL DIFF Comments: PATIENT WAS FASTINGPERFORMED BY: LabCoSaint Clare's Hospital at Boont[facility] TownshipBedfeo8903 [facility] [id number] Information: [id number] (65322) Immature Grans (Abs) 0.0 {x10E3/uL} (Normal) Range: [...] 3.77-5.28 WBC 4.2 {x10E3/uL} (Normal) Range: 4.0-10.5 22-Zst-62536:30 METABOLIC PANEL, COMPREHENSIVE Comments: PATIENT WAS FASTINGPERFORMED BY: [facility] Yprmjn5854 [facility] [id number] (61228) ALT (SGPT) 19 [iU]/L (Normal) Range: 0-40 [...] mg/dL (Abnormal) Range: 65-99 :30 LIPID PANEL (44434) Comments: PATIENT WAS FASTINGPERFORMED BY: LabCoSaint Clare's Hospital at Boonton TownshipGirpwg2192 [facility] [id number] LDL/HDL Ratio 0.9 {ratio_units} (Normal) Range: 0.0-3.2 [...] 100-199 Comments: Please note reference interval change :48 Rapid Flu (91400 x 2) Influenza A Ag negative (Normal) [...] redmond M.D.November 05, 2011 at 3:25:08 PM [phone] Signed GP/GP If you are the referring physician and would like to consult with theradiologist who provided this interpretation, please contact Yasmany Pond at [phone]. If this radiologist is unavailable, youwill be directed to another radiologist to assist. If you are a patient with a question regarding this report, ple asecontactyour referring physician directly. Professional Interpretation Provided By: [employer], Phone , These documents contain legally protected [...] 11/05/11 1552 Sign by: Misael Hebert MD 05-Nov-20110:00 PELVIS WITH IV CONTRAST Radiology Report [...] redmond M.D.November 05, 2011 at 3:25:08 PM [id number] Signed GP/GP If you are the referring physician and would like to consult with theradiologist who provided this interpretation, please contact Yasmany Pond at [phone]. If this radiologist is unavailable, youwill be directed to another radiologist to assist. If you are a patient with a question regarding this report, ple asecontactyour referring physician directly. Professional Interpretation Provided By: [employer], Phone , These documents contain legally protected [...] destructionofthese documents. Dictated on 11/05/11 0939 by Joyd Hebert MDranscribed on 11/05/11 1551 by ITS IMPORTSign by Misael Hebert MD on 11/05/11 155 Sign by: Misael Hebert MD 35-Jbr-457922:20 METABOLIC PANEL, Comments: PATIENT WAS FASTINGPERFORMED BY: [facility]6370 [facility] [id number] Information: [id number],2ND ORDER NO DRAW F [facility] (30197) ALT (SGPT) 31 [iU]/L (Normal) Range: 0-40 [...] Glucose, Serum 155 mg/dL (Abnormal) Range: 65-99 21-Vwg-78070:49 Creatinine Clearance Comments: PATIENT WAS FASTINGPERFORMED BY: EVE LabCoSaint Clare's Hospital at Boonton TownshipPwwuge8869 [facility] [id number] Information: 10/30@6AM 10/31@730AM Creatinine Clearance 58 mL/min [...] Qn, 24-Hr Comments: PATIENT WAS FASTINGPERFORMED BY: LabCoSaint Clare's Hospital at Boonton TownshipLvvmwj4617 [facility] [id number] Urine Prot,24hr calculated 1023.8 {mg/24_hr} (Abnormal) Range: 30.0-150.0 Protein,Total,Urine 52.5 mg/dL (Abnormal) Range: 0.0-15.0 :04 HgA1C , Office (85749) HgA1C , Office 6.1 % (Normal) Range: [...] regarding this repor t, please call our 50C4tcwcslu line @ Dictated on 07/27/11 1040 by GAYE PEREZ MD RTranscribed on 07/28/11 1225 by ITS IMPORTSign by GAYE PEREZ MD on 07/28/11 1225 Sign by: GAYE PEREZ MD 21-Zsn-18983:54 Vitamin D Hydroxy (30901) Comments: PATIENT WAS FASTINGPERFORMED BY: LabCoSaint [facility] Hospital at Boont[facility] TownshipZozlpa9811 [facility] [id number] Vitamin D, 25-Hydroxy 48.8 ng/mL (Normal) Range: 30.0-100.0 Comments: Vitamin D deficiency has been defined by the Five Points ofMedicine and an Endocrine Society practice guideline as alevel of serum 25-OH vitamin D less than 20 ng/mL (1,2).The Endocrine Society went on to further define vitamin Dinsufficiency as a level between 21 and 29 ng/mL (2).1. IOM (Five Points of Medicine). 2010. Dietary reference intakes for calcium and D. [place]: The National Academies Press.2. Mira MF, Rosette [place], Tommy SWAIN, et al. Evaluation, treatment, and prevention of vitamin D deficiency: an Endocrine Society clinical practice guideline. JCEM. 2010; 96(7):1911-30. :54 LIPID PANEL (63133) Comments: PATIENT WAS FASTINGPERFORMED BY: [employer]70 [facility] [id number] LDL/HDL Ratio 1.0 {ratio_units} (Normal) Range: 0.0-3.2 [...] MANUAL DIFF Comments: PATIENT WAS FASTINGPERFORMED BY: Cylance LabCoskedge.meDlrtsj9937 [facility] [id number] Information: ADD [id number] AND DRAW FEE 99 9922 (70719) Immature Grans (Abs) 0.0 {x10E3/uL} (Normal) Range: [...] 3.77-5.28 WBC 4.3 {x10E3/uL} (Normal) Range: 4.0-10.5 30-Tmr-37510:54 METABOLIC PANEL, COMPREHENSIVE Comments: PATIENT WAS FASTINGPERFORMED BY: LabCoSaint Clare's Hospital at Boonton TownshipHzxmta2539 [facility] [id number] (04104) ALT (SGPT) 48 [iU]/L (Abnormal) Range: 0-40 [...] (Abnormal) Range: 65-99 :18 HgA1C , Office (94185) HgA1C , Office 6.1 % (Normal) Range: 4.6 - 7.1 :18 Blood Glucose , Office (90606) Blood Glucose , Office 103 (Normal) 62-Tao-66683:00 ABDOMEN WITH AND W/O CONTRAST Radiology Report [...] radiologist regarding this report, please call our 58L3uhrmiac line @ Dictated on 03/18/11 1715 by Keaton MANN,NadieTranscribed on 03/22/11 1401 by ITS IMPORTSign by Jeanette Hill MD on 03/22/11 140 Sign by: Jeanette Pugh MD 65-Scw-245888:29 SERUM CRE & GFR CREAT,SERUM 1.1 mg/dL (Abnormal) Range: 0.6-1.0 07-Ztp-22522:00 BRAIN W/WO CONTRAST Radiology Report See Note [...] seen in the right frontal white matter claims auditor ior to themasswithout interval change. The cortical [...] 03/02/11 173 Sign by: Donna Martin MD 76-Iwi-72231:00 UPPER EXT. JOINT ONLY(ROUTINE) Radiology Report See [...] 03/02/11 1243 by Ankur DuncanTranscribed on 03/04/11 103 by ITS IMPORTSign by Ankur Duncan on 03/04/11 103 Sign by: Ankur Duncan :08 SHOULDER,MIN 2 VIEWS Radiology Report See Note [...] . Dictate d on 02/17/11 1107 by Keaton MANN,NadIraisranscribed on 02/17/11 120 by ITS IMPORTSign by Jeanette Pugh MD [...] on 01/29/111715 Sign by: Aakash Barbosa MD 82-Hoh-78097:44 ABDOMEN/PELVIS WITH CONTRAST Radiology Report See Note [...] 02/01/11 1021 Sign by: ALEJANDRO DRUMMOND DO 24-Plw-492218:57 SINUS/FACIAL BONE Radiology Report See Note (Normal) [...] is suggested. Dictated on 01/19/11 1334 by Anup MANN,GabrieleTranscribed on 01/19/11 1447 by ITS IMPORTSign by Anup MANN,Misael on 01/19/11 1448 Sign by: Misael Hebert MD 99-Qzt-03126:00 BRAIN W/WO CONTRAST Radiology Report See Note [...] addition, there is a small region of zmadldaskA4ipvdhsovvk along the anterior margin of the mass, [...] and T2 signalhyperintensity in the bihemispheric w reta matter, most compatible withmildchronic microvascular ischemic disease [...] Physician, on 01/19/2011 16:48:58 (ET). Dictated on 01/19/11 4783 by GAYE PLUMMER MD RTranscribed on 01/19/111649 by ITS IMPORTSign by GAYE PEREZ MD on 01/19/111650 Sign by: CHRIS MANNGAYE Alen 00-Vkc-30452:00 BRAIN/HEAD W/WO CONTRAST Radiology Report See Note [...] of surroundingedema. Dictated on 01/19/11 1347 by Jody Hebert MDranscribed on 01/19/11 1446 by ITS IMPORTSign by Misael Hebert MD on 01/19/11 1447 Sign by: Misael Hebert MD 21-Enh-422607:08 BILAT SCRN DIGITAL & CAD Radiology Report [...] suspiciousa bnormality. Dictated on 01/18/11 1317 by Anup MANN,JasbirrieleTranscribed on 01/19/11 0848 by ITS IMPORTSign by Anup MANN,Misael on 01/19/11 0849 Sign by: Misael Hebert MD 09-Jun-20119:20 MICROALBUMIN: CREATININE RATIO Comments: PATIENT NOT FASTINGPERFORMED BY: [employer]70 [facility]SluiceNorth [facility] Hospital [id number] (34923) AND (98438) Microalb/Creat Ratio 1028.4 {mg/g_creat} (Abnormal) Range: 0.0-30.0 Microalbumin, Urine 1341.0 ug/mL (Abnormal) Range: 0.0-17.0 Creatinine, Urine 130.4 mg/dL (Normal) Range: 15.0-278.0 :20 CBC WITH MANUAL DIFF (34865) Comments: PATIENT NOT FASTINGPERFORMED BY: [employer]6370 MongoSluiceNorth Carolina Specialty Hospital [id number] Immature Grans (Abs) 0.0 {x10E3/uL} (Normal) Range: [...] 3.80-5.10 WBC 4.1 {x10E3/uL} (Normal) Range: 4.0-10.5 09-Jun-20119:20 LIPID PANEL (81443) Comments: PATIENT NOT FASTINGPERFORMED BY: LabCoSaint [facility] Hospital at Boonton TownshipDsvknv9904 [facility] [id number] LDL/HDL Ratio 0.9 {ratio_units} (Normal) Range: 0.0-3.2 LDL Cholesterol Calc 58 mg/dL (Normal) Range: 0-99 VLDL Cholesterol Cesar 23 mg/dL (Normal) Range: 5-40 HDL Cholesterol 62 mg/dL (Normal) Comments: According to ATP-III Guidelines, HDL-C >59 mg/dL is considered anegative risk factor for CHD. Triglycerides 116 mg/dL (Normal) Range: 0-149 Cholesterol, Total 143 mg/dL (Normal) Range: 100-199 09-Jun-20119:20 METABOLIC PANEL, COMPREHENSIVE Comments: PATIENT NOT FASTINGPERFORMED BY: LabCoSaint Clare's Hospital at Boont[facility] TownshipYdkrwg4936 [facility] [id number] (07529) ALT (SGPT) 28 [iU]/L (Normal) Range: 0-40 [...] (Abnormal) Range: 65-99 :39 HgA1C , Office (21152) HgA1C , Office 6.5 % (Normal) Range: 4.6 - 7.1 :39 Blood Glucose , Office (58609) Blood Glucose , Office 128 (Normal) :19 CBC With Differential/Platelet Comments: PATIENT WAS FASTINGPERFORMED BY: EVE Integrity TrackingSaint Clare's Hospital at Boonton TownshipSujrpz3111 [facility] [id number] Immature Grans (Abs) 0.0 {x10E3/uL} (Normal) Range: [...] 3.80-5.10 WBC 5.6 {x10E3/uL} (Normal) Range: 4.0-10.5 :19 Comp. Metabolic Panel (14) Comments: PATIENT WAS FASTINGPERFORMED BY: Integrity TrackingSaint Clare's Hospital at Boonton TownshipJxdnut3006 [facility] [id number]; appt 01/11/11 ALT (SGPT) 18 [iU]/L (Normal) [...] Glucose, Serum 113 mg/dL (Abnormal) Range: 65-99 5-Als-933237:19 Lipid Panel With LDL/HDL Comments: PATIENT WAS FASTINGPERFORMED BY: LabCoSaint Clare's Hospital at Boonton TownshipZyueom4684 [facility] [id number] Ratio LDL/HDL Ratio 1.0 {ratio_units} Range: 0.0-3.2 [...] 0.800 {uIU/mL} Comments: PATIENT WAS FASTINGPERFORMED BY: [employer]70 [facility] [id number] 2:19 (Normal) Range: 0.450-4.500 Vitamin D, 25-Hydroxy 44.0 ng/mL (Normal) Comments: PATIENT WAS FASTINGPERFORMED BY: Vamosa [facility] [id number] 2:19 Range: 32.0-100.0 Comments: Effective February 22, 2011 Vitamin D, 25-Hydroxy reference intervals will be changing to 30-100. .Recent studies consider the lower li sandra of 32.0 ng/mL to be athreshold for optimal health.Otf HAYES. J Nutr. 2004;135(2):317-22. :54 HgA1C , Office (75979) HgA1C , Office 6.6 % (Normal) Range: 4.6 - 7.1 :54 Blood Glucose , Office (03815) Blood Glucose , Office 134 (Normal) :40 Creatinine Clearance Comments: PERFORMED BY: [employer] Rmhzhn7044 [facility] [id number] Information: 10/07@7AM 10/08@3AM Creatinine Clearance 56 mL/min [...] Protein Total, Qn, 24-Hr Comments: PERFORMED BY: [place] [id number] Urine Prot,24hr calculated 610.5 {mg/24_hr} (Abnormal) Range: 30.0-150.0 Protein,Total,Urine 40.7 mg/dL (Abnormal) Range: 0.0-15.0 :46 Vitamin D Hydroxy (33345) Comments: PATIENT WAS FASTINGPERFORMED BY: Tripwire6370 MongoSluiceblin [place] [id number] Vitamin D, 25-Hydroxy 36.5 ng/mL (Normal) Range: 32.0-100.0 Comments: Recent studies consider the lower limit of 32.0 ng/mL to be athreshold for optimal health.Otf HAYES. J Nutr. 2004;135(2):317-22. :46 METABOLIC PANEL, COMPREHENSIVE Comments: PATIENT WAS FASTINGPERFORMED BY: Tripwire6370 MongoSluiceblin [place] [id number] (96845) ALT (SGPT) 34 [iU]/L (Normal) Range: 0-40 [...] mg/dL (Abnormal) Range: 65-99 :46 LIPID PANEL (19295) Comments: PATIENT WAS FASTINGPERFORMED BY: [facility]amateNorth [facility] Specialty Hospital [id number] LDL Cholesterol Calc 85 mg/dL (Normal) Range: [...] MANUAL DIFF Comments: PATIENT WAS FASTINGPERFORMED BY: Tripwire6370 [employer] Harper University HospitalMedPAC TechnologiesNorth Carolina Specialty Hospital [id number] Information: [id number]; appt 10/12/10 (23831) Immature Grans (Abs) 0.0 {x10E3/uL} (Normal) Range: [...] 3.80-5.10 WBC 5.5 {x10E3/uL} (Normal) Range: 4.0-10.5 5-Dvf-280802:07 HgA1C , Office (59044) HgA1C , Office 6.6 % (Normal) Range: 4.6 - 7.1 :07 Blood Glucose , Office (57068) Blood Glucose , Office 114 (Normal) 51-Wsu-097859:00 Creatinine Clearance Comments: PERFORMED BY: [facility]6370 [facility] [id number] Information: 12/31@8AM 01/01@4AM Creatinine Clearance 48 mL/min [...] Creatinine, Serum 1.20 mg/dL (Abnormal) Range: 0.57-1.00 81-Inn-473861:00 Protein Total, Qn, 24-Hr Comments: PERFORMED BY: [facility]CoSaint [facility] Boonton TownshipUtfqqg0457 [facility] [id number] Urine Prot,24hr calculated 1070.6 {mg/24_hr} (Abnormal) Range: 30.0-150.0 Protein,Total,Urine 79.3 mg/dL (Abnormal) Range: 0.0-15.0 07-Lxd-087125:48 BILAT SCRN DIGITAL & CAD Radiology Report See Note (Normal) Comments: Exam Number: [id number] MAMMOGRAPHY - BILATERAL SCREENING INDICATION:Routine annual screening [...] of attaching a ResultCode to this exam.ADDENDUM: [id number] HPBI/MDS Reported By: ANUPMISAEL 71-Cul-376976:48 DEXA BONE DENSITY STUDY (HP) Radiology Report See Note (Normal) Comments: Exam Number: [id number] CLINICAL:This is a 69-year-old female patient with postmenopausal screening. EXAMINATION:DUAL ENERGY X-RAY ABSORPTIOMETRY / DEXA. TECHNIQUE:Bone Density Measurements (BMD) of lumb ar spine and bilateral hipswere obtained using a Tricida scanner.. COMPARISON:None. FINDINGS: Lumbar Spine (L1-L4): g/cm2 [...] Osteoporosis Foundation [email or web address]://[email or web address] Reported By: MISAEL HEBERT 70-Kqt-819579:29 HgA1C , Office (96174) HgA1C , Office 6.5 % (Normal) Range: 4.6 - 7.1 56-Zhi-028432:29 Blood Glucose , Office (69026) Blood Glucose , Office 109 (Normal) :05 CBC With Differential/Platelet Comments: PATIENT WAS FASTINGPERFORMED BY: LabCoSaint [facility] TownshipQzrdmu7514 [facility] [id number] Immature Grans (Abs) 0.0 {x10E3/uL} (Normal) Range: [...] 3.80-5.10 WBC 3.9 {x10E3/uL} (Abnormal) Range: 4.0-10.5 :05 Comp. Metabolic Panel (14) Comments: PATIENT WAS FASTINGPERFORMED BY: [facility] Erlnas4986 [facility] [id number] ALT (SGPT) 20 [iU]/L (Normal) Range: 0-40 [...] Glucose, Serum 123 mg/dL (Abnormal) Range: 65-99 :05 Lipid Panel With LDL/HDL Comments: PATIENT WAS FASTINGPERFORMED BY: [facility] Rcuerb1238 [facility] [id number] Ratio HDL Cholesterol 54 mg/dL (Normal) Comments: [...] ng/mL (Normal) Comments: PATIENT WAS FASTINGPERFORMED BY: Fipeo6370 [facility] [id number] :05 Range: 32.0-100.0 Comments: Recent studies consider the lower limit of 32.0 ng/mL to be athreshold for optimal health.Otf HAYES. J Nutr. 2004;135(2):317-22. 56-Vtj-87552:41 SPLEEN (HP) Radiology Report See Note (Normal) Comments: Exam Number: [id number] ULTRASOUND OF THE SPLEEN A goal directed [...] Protein, 0.5 mg/L (Normal) Comments: PERFORMED BY: [facility] [facility] Nwkeco5868 [facility] [id number] 10:54 Quant Range: 0.0-4.9 17-Jun-2009 Hemoglobin A1c 6.3 % (Abnormal) Comments: PERFORMED BY: Fipeo6370 [facility] [id number] 10:54 Range: 4.8-5.6 Comments: Increased risk for diabetes: 5.7 - 6.4Diabetes: >6.4Glycemic control for adults with diabetes: <7.0.Please note reference interval change 17-Jun-2009 Sedimentation 4 mm/h (Normal) Comments: PERFORMED BY: Fipeo6370 [facility]in [place] [id number] 10:54 Rate-Westergren Range: 0-30 17-Jun-2009 Vitamin B12 1372 pg/mL Comments: PERFORMED BY: HyprKey70 [place] Globalin [place] [id number] 10:54 (Abnormal) Range: 211-911 Comments: Effective July 14, 2009, Vitamin B12 will bechanging to the [place] ECLIA methodology. Thereference interval will be changing to:211 - 946 pg/mL 17-Jun-2009 Vitamin D, 25-Hydroxy 37.7 ng/mL Comments: PERFORMED BY: [employer]prKey70 [place] [facility] [id number] 10:54 (Normal) Range: 32.0-100.0 Comments: Recent studies consider the lower limit of 32.0 ng/mL to be athreshold for optimal health.Otf HAYES. J Nutr. 2004;135(2):317-22. 17-Ino-554055:34 Vitamin D Hydroxy Comments: PATIENT NOT FASTINGPERFORMED BY: Tripwire6370 [facility] [id number] Information: Q90588,2ND ORDER NO DRAW F EE (58564) Vitamin D, 25-Hydroxy 48.5 ng/mL (Normal) Range: 30.0-100.0 Comments: Vitamin D deficiency has been defined by the Five Points ofMedicine and an Endocrine Society practice guideline as alevel of serum 25-OH vitamin D less than 20 ng/mL (1,2).The Endocrine Society went on to further define vitamin Dinsufficiency as a level between 21 and 29 ng/mL (2).1. IOM (Five Points of Medicine). 2010. Dietary reference intakes for calcium and D. [place]: The National Academies Press.2. Mira MF, Rosette LOPEZ, Tommy SWAIN, et al. Evaluation, treatment, and prevention of vitamin D deficiency: an Endocrine Society clinical practice guideline. JCEM. 2010; 96(7):1911-30. :50 HgA1C , Office (13548) HgA1C , Office 6.7 % (Normal) Range: 4.6 - 7.1 :50 Blood Glucose , Office (74184) Blood Glucose , Office 117 (Normal) :12 CBC With Differential/Platelet Comments: PERFORMED BY: [facility]Select [facility]6370 [facility] [id number] Information: 06/10@6AM3/10@330 Hematology Comments: Note: (Normal) Comments: Verified by [...] 3.80-5.10 WBC 3.6 {x10E3/uL} (Abnormal) Range: 4.0-10.5 76-Ord-562368:12 Comp. Metabolic Panel (14) Comments: PERFORMED BY: [facility] Zdyidp9562 [facility] [id number] Alkaline Phosphatase, S 68 [iU]/L (Normal) Range: [...] Glucose, Serum 124 mg/dL (Abnormal) Range: 65-99 38-Jiq-537607:12 Creatinine Clearance Comments: PERFORMED BY: [facility] [facility] Elhrmj6999 [facility] [id number] Creatinine Clearance 49 mL/min (Abnormal) Range: 88-128 Comments: The above range is based on 1.73 square meter average body surfacearea. Creatinine, Ur 24hr 800.0 {mg/24_hr} (Normal) Range: 800.0-1800.0 Creatinine, Urine 40.0 mg/dL (Normal) Range: 15.0-278.0 71-Cun-763151:12 Lipid Panel With LDL/HDL Comments: PERFORMED BY: [facility] [employer] [facility] [id number] Ratio HDL Cholesterol 61 mg/dL (Normal) Comments: According to ATP-III Guidelines, HDL-C >59 mg/dL is considered anegative risk factor for CHD. LDL Cholesterol Calc 74 mg/dL (Normal) Range: 0-99 LDL/HDL Ratio 1.2 {ratio_units} (Normal) Range: 0.0-3.2 VLDL Cholesterol Cesar 17 mg/dL (Normal) Range: 5-40 Cholesterol, Total 152 mg/dL (Normal) Range: 100-199 Triglycerides 87 mg/dL (Normal) Range: 0-149 75-Wxl-511467:12 Protein Total, Qn, 24-Hr Comments: PERFORMED BY: Fipeo6370 [facility] [id number] Urine Prot,24hr calculated 1172.0 {mg/24_hr} Range: 30.0-150.0 (Abnormal) Protein,Total,Urine 58.6 mg/dL (Abnormal) Range: 0.0-15.0 TSH 1.280 {uIU/mL} Comments: PERFORMED BY: Integrity TrackingSaint Clare's Hospital at Boonton TownshipTwurpa2965 [facility] [id number] 1:12 (Normal) Range: 0.450-4.500 3-Ono-343658:58 HgA1C , Office (97172) HgA1C , Office 6.0 % (Normal) Range: 4.6 - 7.1 6-Vie-887406:58 Blood Glucose , Office (18687) Blood Glucose , Office 113 (Normal) :03 CBC With Differential/Platelet Comments: PATIENT WAS FASTINGPERFORMED BY: Integrity TrackingSaint Clare's Hospital at Boonton TownshipUrytuf7194 [facility] [id number] Baso (Absolute) 0.0 {x10E3/uL} (Normal) Range: 0.0-0.2 [...] 11.7-15.0 WBC 3.2 {x10E3/uL} (Abnormal) Range: 4.0-10.5 :03 Comp. Metabolic Panel (14) Comments: PATIENT WAS FASTINGPERFORMED BY: Integrity TrackingSaint Clare's Hospital at Boonton TownshipGagivj5717 [facility] [id number] A/G Ratio 2.0 (Normal) Range: 1.1-2.5 Albumin, [...] Glucose, Serum 116 mg/dL (Abnormal) Range: 65-99 3-Vbb-558072:03 Lipid Panel With LDL/HDL Comments: PATIENT WAS FASTINGPERFORMED BY: LabCoSaint Clare's Hospital at Bo[facility] TownshipUguxwm2004 [facility] [id number] Ratio Cholesterol, Total 167 mg/dL (Normal) Range: [...] (Normal) Comments: PATIENT WAS FASTINGPERFORMED BY: LabCoSaint Clare's Hospital at Boont[facility] TownshipFdxkcy7824 [facility] [id number] :03 Range: 32.0-100.0 Comments: Recent studies consider the lower limit of 32.0 ng/mL to be athreshold for optimal health.Otf HAYES. J Nutr. 2004;135(2):317-22. 73-Wfa-944938:32 Urinalysis, Office (60559) UA - BILIRUBIN Negative (Normal) UA - BLOOD Hemolyzed Trace (Normal) UA - GLUCOSE Negative (Normal) UA - KETONES Negative mg/dL (Normal) UA - LEUKOCYTE ESTERASE Negative (Normal) UA - NITRITE Negative (Normal) UA - PH 6.5 (Normal) UA - PROTEIN 300 mg/dL (Normal) UA - SPECIFIC GRAVITY 1.020 (Normal) URINE UROBILINGN JATINDER TIMED 2 mg/dL (Normal) 9-Zwe-126856:19 URINE SETH CULTURE-JATINDER COL Comments: PATIENT NOT FASTINGClinical Information: SRC:UR ADD [id number] PERFORMED BY: [facility] Qdgopk3946 [facility] [id number] COUNT (09541) Result 1 ECV (Normal) Comments: Escherichia coli, [...] report (Normal) Culture,Comprehensiv e 09-Jan-20098:17 Urinalysis, Office (15846) UA - BILIRUBIN Negative (Normal) UA - BLOOD Hemolyzed Large (Normal) UA - GLUCOSE Negative (Normal) UA - KETONES Negative mg/dL (Normal) UA - LEUKOCYTE ESTERASE Moderate (Normal) UA - NITRITE Negative (Normal) UA - PH 7.0 (Normal) UA - PROTEIN 300 mg/dL (Normal) UA - SPECIFIC GRAVITY 1.020 (Normal) URINE UROBILINGN JATINDER TIMED 2 mg/dL (Normal) 7-Awf-134836:05 Comp. Metabolic Panel (14) Comments: PATIENT WAS FASTINGPERFORMED BY: [facility]6370 [facility] [id number] A/G Ratio 1.7 (Normal) Range: 1.1-2.5 Albumin, [...] Sodium, Serum 142 mmol/L (Normal) Range: 135-145 :05 Hepatic Function Panel (7) Comments: PATIENT WAS FASTINGPERFORMED BY: [facility]6370 [facility] [id number] Bilirubin, Direct 0.12 mg/dL (Normal) Range: 0.00-0.40 :05 Lipid Panel With LDL/HDL Comments: PATIENT WAS FASTINGPERFORMED BY: [place] [id number] [facility] [id number] Ratio Cholesterol, Total 170 mg/dL (Normal) Range: [...] mg/dL (Normal) Comments: PATIENT WAS FASTINGPERFORMED BY: [facility]6370 [facility] [id number] :05 Range: 2.5-4.5 PTH, Intact 19 pg/mL (Normal) Comments: PATIENT WAS FASTINGPERFORMED BY: [facility]6370 [facility] [id number] :05 Range: 15-65 Vitamin D, 25-Hydroxy 38.9 ng/mL (Normal) Comments: PATIENT WAS FASTINGPERFORMED BY: [facility]6370 [facility] [id number] :05 Range: 32.0-100.0 Comments: Recent studies consider the lower limit of 32.0 ng/mL to be athreshold for optimal health.Otf HAYES. J Nutr. 2004;135(2):317-22. 9-Hcn-799038:40 HgA1C , Office (52408) HgA1C , Office 6.0 % (Normal) Range: 4.6 - 7.1 :40 Blood Glucose , Office (71668) Blood Glucose , Office 109 (Normal) :42 CBC With Differential/Platelet Comments: PATIENT WAS FASTINGPERFORMED BY: LabCoSaint Clare[facility] Hospital at Boont[facility] TownshipScsczm8808 [facility] [id number] Baso (Absolute) 0.0 {x10E3/uL} (Normal) Range: 0.0-0.2 [...] 11.7-15.0 WBC 4.2 {x10E3/uL} (Normal) Range: 4.0-10.5 :42 Comp. Metabolic Panel (14) Comments: PATIENT WAS FASTINGPERFORMED BY: LabCoSaint [facility] Hospital at Bo[facility] TownshipVminna1631 [facility] [id number] A/G Ratio 1.6 (Normal) Range: 1.1-2.5 Albumin, [...] Sodium, Serum 140 mmol/L (Normal) Range: 135-145 7-Ski-750786:09 FECAL OCCULT HGB ASSAY, QUAL, 1-3 SIMULTANEOUS DETERMINATIONS (04247) FECAL OCCULT HGB ASSAY, QUAL, 1-3 SIMULTANEOU neg (Normal) :42 Microscopic Examination Comments: PATIENT WAS FASTINGPERFORMED BY: LabCoSaint [facility] Hospital at Boont[facility] TownshipXmedpb9352 [facility] [id number] Bacteria None seen (Normal) Cast Type Hyaline casts (Normal) Casts Present {/lpf} (Abnormal) Epithelial Cells (non renal) 0-10 {/hpf} (Normal) Range: 0 - 10 Mucus Threads Present (Normal) RBC 0-3 {/hpf} (Normal) Range: 0 - 3 WBC 0-5 {/hpf} (Normal) Range: 0 - 5 :42 URINALYSIS W/O MICRO (22290) Comments: PATIENT WAS FASTINGPERFORMED BY: [facility]amateNorth [facility] Hospital [id number] Appearance Clear (Normal) Bilirubin Negative (Normal) Glucose Negative (Normal) Ketones Negative (Normal) Microscopic Examination See below: (Normal) Nitrite, Urine Negative (Normal) Occult Blood Negative (Normal) pH 5.0 (Normal) Range: 5.0-7.5 Protein 1+ (Abnormal) Specific Barling 1.013 (Normal) Range: 1.005-1.030 Urine-Color Yellow (Normal) Urobilinogen,Semi-Qn 0.2 mg/dL (Normal) Range: 0.0-1.9 WBC Esterase 1+ (Abnormal) :42 MICROALBUMIN: CREATININE RATIO Comments: PATIENT WAS FASTINGPERFORMED BY: [facility]amateNorth [facility]ty Hospital [id number] (03888) AND (40599) Creatinine, Urine 76.1 mg/dL (Normal) Range: 15.0-278.0 Microalb/Creat Ratio 292.1 {ug/mg_creat} (Abnormal) Range: 0.0-30.0 Microalbumin, Urine 222.3 ug/mL (Abnormal) Range: 0.0-17.0 :42 CBC WITH MANUAL DIFF (69496) Comments: PATIENT WAS FASTINGClinical Information: ADD DRAW FEE 529496 ADD J 36069 PERFORMED BY: TapRush Harper University HospitalMedPAC TechnologiesNorth Carolina Specialty Hospital [id number] Baso (Absolute) 0.0 {x10E3/uL} (Normal) Range: 0.0-0.2 [...] PANEL, COMPREHENSIVE Comments: PATIENT WAS FASTINGPERFORMED BY: [facility]6370 [facility] [id number] (03196) A/G Ratio 1.8 (Normal) Range: 1.1-2.5 Albumin, [...] Sodium, Serum 141 mmol/L (Normal) Range: 135-145 8-Wlm-659370:23 HgA1C , Office (49699) HgA1C , Office 6.0 % (Normal) Range: 4.6 - 7.1 5-Mft-733705:23 Blood Glucose , Office (55849) Blood Glucose , Office 103 (Normal) 63-Vtj-321733:38 CBC WITH MANUAL DIFF (26947) Comments: PATIENT WAS FASTINGClinical Information: ADD DRAW FEE 490407 ADD J 87508 PERFORMED BY: LabCoSaint Clare's Hospital at Boonton TownshipJgdksx2260 [facility] [id number] Baso (Absolute) 0.0 {x10E3/uL} (Normal) Range: 0.0-0.2 [...] 11.7-15.0 WBC 4.0 {x10E3/uL} (Normal) Range: 4.0-10.5 51-Eol-656437:38 METABOLIC PANEL, COMPREHENSIVE Comments: PATIENT WAS FASTINGPERFORMED BY: LabCoSaint [facility]'s Hospital at Boonton TownshipLffnyh0979 [facility] [id number] (52049) A/G Ratio 1.8 (Normal) Range: 1.1-2.5 Albumin, [...] Sodium, Serum 142 mmol/L (Normal) Range: 135-145 48-Iqv-669518:38 HEPATIC FUNCTION PANEL Comments: PATIENT WAS FASTINGPERFORMED BY: LabCoSaint [facility] Hospital at Boont[facility] TownshipPhodsv4945 [facility] [id number] (66927) Bilirubin, Direct 0.08 mg/dL (Normal) Range: 0.00-0.40 75-Cre-243267:38 LIPID PANEL (22561) Comments: PATIENT WAS FASTINGPERFORMED BY: Cylance LabCoSaint Clare's Hospital at Boonton TownshipVjnmkf4779 [facility] [id number] Cholesterol, Total 200 mg/dL (Abnormal) Range: 100-199 Comment SPR (Normal) Comments: If initial LDL-cholesterol result is >100 mg/dL, assess forrisk factors. HDL Cholesterol 55 mg/dL (Normal) Comments: According to ATP-III Guidelines, HDL-C >59 mg/dL is considered anegative risk factor for CHD. LDL Cholesterol Calc 127 mg/dL (Abnormal) Range: 0-99 LDL/HDL Ratio 2.3 {ratio_units} (Normal) Range: 0.0-3.2 Triglycerides 92 mg/dL (Normal) Range: 0-149 VLDL Cholesterol Cesar 18 mg/dL (Normal) Range: 5-40 1-Ohy-458225:36 HgA1C , Office (69745) HgA1C , Office 6.1 % (Normal) Range: 4.6 - 7.1 2-Trm-300092:36 Blood Glucose , Office (62880) Blood Glucose , Office 98 (Normal) 73-Jbh-366878:33 CBC With Differential/Platelet Comments: PATIENT WAS FASTINGClinical Information: SRC:UR PERFORMED BY: EVE LabCoSaint Clare's Hospital at Boonton TownshipUnhtwc2074 [facility] [id number] Baso (Absolute) 0.0 {x10E3/uL} (Normal) Range: 0.0-0.2 [...] 11.7-15.0 WBC 4.8 {x10E3/uL} (Normal) Range: 4.0-10.5 15-Vkd-101018:33 Comp. Metabolic Panel (14) Comments: PATIENT WAS FASTINGPERFORMED BY: LabCoSaint [facility]'s Hospital at Boont[facility] TownshipMvnlja0599 [facility] [id number] A/G Ratio 1.6 (Normal) Range: 1.1-2.5 Albumin, [...] Serum 92 mg/dL (Normal) Range: 65-99 If -Swedish 57 mL/min/1.73 Comments: Note: Persistent reduction for [...] Sodium, Serum 142 mmol/L (Normal) Range: 135-145 21-Xax-794983:33 Lipid Panel With LDL/HDL Comments: PATIENT WAS FASTINGPERFORMED BY: LabCo Epzltb3681 [facility] [id number] Ratio Cholesterol, Total 174 mg/dL (Normal) Range: 100-199 HDL Cholesterol 67 mg/dL (Normal) Comments: According to ATP-III Guidelines, HDL-C >59 mg/dL is considered anegative risk factor for CHD. LDL Cholesterol Calc 85 mg/dL (Normal) Range: 0-99 LDL/HDL Ratio 1.3 {ratio_units} (Normal) Range: 0.0-3.2 Triglycerides 110 mg/dL (Normal) Range: 0-149 VLDL Cholesterol Cesar 22 mg/dL (Normal) Range: 5-40 44-Kgr-866584:33 Urine Culture,Comprehensive Comments: PATIENT WAS FASTINGPERFORMED BY: [facility]Select [facility]aw6370 [facility] [id number] Antimicrobial MIHEAD (Normal) Comments: S = Susceptible; [...] Enterococcus. (Normal) Urine Final report (Normal) Culture,Comprehensive 1-Bsq-763638:10 HgA1C , Office (72156) HgA1C , Office 5.9 % (Normal) Range: [...] mL (Normal) URINE CREAT 43.0 mg/dL (Normal) 22-Yhx-82596:03 PROU 24HR 24hr UR PROTEIN 430.0 {mg/day} (Abnormal) UR COLLECT TIME 24.0 {HOURS} (Normal) UR TOTAL VOLUME 2150 mL (Normal) URINE PROTEIN 20.0 mg/dL (Abnormal) 42-Uby-010904:17 Urine Culture,Comprehensive Comments: Clinical Information: SRC:UR PERFORMED BY: [facility] Tracking [facility] LogicNorth [facility] Hospital [id number] Result 1 CNSNSS (Normal) Comments: Coagulase negative Staphylococcus species, not Staphylococcussaprophyticus.600 Colonies/mLSusceptibility or resistance of staphylococci to oxacillin predictssusceptibility or resistance to (a) other be uu-gtxcdpdgb-rewefygtljmtysisa such as cloxacillin and dicloxacillin, (b) combinationsof a penicillin and a beta-lactamase inhibitor, and(c) anti- staphylococcal cephalosporins. Routine testing of otherp enicillins, beta-lactam/beta-lactamase inhibitor combinations,cephems, and carbapenems is not advised by the CLSI Standards(P415-J04, 2005). S = Susceptible; I = Intermediate; R = Resistant * P = Positive; N = Negative MICS are expressed in micrograms per mL Antibiotic RSLT#1 RSLT#2 RSLT#3 RSLT#4Ciprofloxacin RGentami kristian SLevofloxacin RNitrofurantoin SOxacillin SPenicillin RRifampin STrimethoprim/Sulfa SVancomycin S Urine Final report Culture,Comprehensi (Normal) ve 5-Aoa-604017:53 Metabolic Panel, Basic (58976) Comments: PATIENT NOT FASTINGClinical Information: ADD DRAW FEE [id number] ADD J 74934 PERFORMED BY: [facility] Tracking Olkgvj5503 [place] [employer] Prote[facility] TechnologiesNovant Health Fors[facility] [id number] BUN 39 mg/dL (Abnormal) Range: 5-26 BUN/Creatinine Ratio 33 (Abnormal) Range: 8-27 Calcium, Serum 9.8 mg/dL (Normal) Range: 8.5-10.6 Carbon Dioxide, Total 22 mmol/L (Normal) Range: 20-32 Chloride, Serum 103 mmol/L (Normal) Range: 97-108 Creatinine, Serum 1.20 mg/dL (Abnormal) Range: 0.57-1.00 Glom Filt Rate, Est 45 mL/min/1.73 Range: 60-128 (Abnormal) Glucose, Serum 101 mg/dL (Abnormal) Range: 65-99 If -Swedish 55 mL/min/1.73 Range: 60-128 (Abnormal) Comments: Note: Persistent reduction for 3 months or more in an eGFR<60 mL/min/1.73 m2 defines CKD. Patients with eGFR values>/=60 mL/min/1.73 m2 may also have CKD if evidence of persistentproteinuria is present. Additional information may be found atwww.kdoqi.org. Potassium, Serum 5.1 mmol/L (Normal) Range: 3.5-5.2 Sodium, Serum 139 mmol/L (Normal) Range: 135-145 :09 HgA1C , Office (95684) HgA1C , Office 6.1 % (Normal) Range: 4.6 - 7.1 :09 Blood Glucose , Office (43060) Blood Glucose , Office 163 (Normal) 77-Lgk-29614:37 SPINE,LUMBAR (ROUTINE) Radiology Report See Note (Normal) Comments: Exam Number: [id number] MRI LUMBAR SPINE CLINICAL STATEMENTLow back pain [...] onboth sides. Reported By: MODESTA COPE M.D. 60-Aaa-928627:00 [facility] Radiology Report See Note (Normal) Comments: Exam Number: [id number] MAMMOGRAM, BILATERAL SCREENING DIGITAL AND CAD HISTORYRoutine screening. Full field digital images were obtained in mediolateral oblique andcraniocaudal projections. CAD images w ere reviewed. The current [facility]. A small metal marker is [...] mammograms werealso examined with computer-aided detection software (ImageInst[employer]ustr, [employer], [employer] Reported By: DONNA OJEDA M.D. 59-Oyr-200966:59 DEXA BONE DENSITY STUDY (HP) Radiology Report See Note (Normal) Comments: Exam Number: [id number] BONE DENSITOMETRY HISTORYPost menopausal. TECHNIQUE Bone densitometry [...] Report See Note (Normal) Comments: Exam Number: [id number] FIVE VIEW LUMBAR SPINE AP, lateral, both [...] Randm Ur Comments: PATIENT NOT FASTINGPERFORMED BY: [facility]amateNorth [facility]ty Hospital [id number] Creatinine, Urine 46.8 mg/dL (Normal) Microalb/Creat Ratio 712.8 {ug/mg_creat} (Abnormal) Range: 0.0-30.0 Microalbum.,U,Random 333.6 ug/mL (Abnormal) Range: 0.0-17.0 :13 Creatinine Clearance Comments: PATIENT NOT FASTINGClinical Information: HT-5'4'' WT-184 PERFORMED BY: [facility] [id number] Creatinine Clearance 40 mL/min (Abnormal) Range: 88-128 Comments: The above range is based on 1.73 square meter average body surfacearea. Creatinine, Serum 1.30 mg/dL (Normal) Range: 0.50-1.50 Creatinine, Ur 24hr 754.8 {mg/24_hr} Range: 800.0-1800.0 (Abnormal) Creatinine, Urine 44.4 mg/dL (Normal) Glom Filt Rate, Est 41 mL/min (Abnormal) Range: 60-128 If -Swedish 50 mL/min (Abnormal) Range: 60-128 Comments: Note: Persistent reduction for 3 months or more in an eGFR<60 mL/min/1.73 m2 defines CKD. Patients with eGFR values>/=60 mL/min/1.73 m2 may also have CKD if evidence of persistentproteinuria is present. .Additional information may be found at www.kdoqi.org. 05-Sep-20079:13 Protein Total, Qn, 24-Hr Comments: PATIENT NOT FASTINGPERFORMED BY: LabCoSaint [facility]'s Hospital at Boont[facility] TownshipPdqxbw2421 [facility] [id number] Urine Protein,Total,Urine 49.0 mg/dL (Abnormal) Range: 0.0-15.0 Prt, 24hr calculated 833.0 {mg/24_hr} (Abnormal) Range: 30.0-150.0 35-Tcl-840961:00 CBCD,SMEAR DIFF CELLS COUNTED 100 (Normal) EOS [...] 47-70 WBC 4.3 K/mm3 (Abnormal) Range: 4.4-11.0 91-Roy-427016:00 COMP METABOLIC A/G 1.4 {RATIO} (Normal) Range: [...] T PROT 6.6 g/dL (Normal) Range: 6.4-8.2 39-Pvr-048670:00 D BILI 0.06 mg/dL (Normal) Range: 0.00-0.30 06-Fep-246594:00 LIPID CHOL 175 mg/dL (Normal) Comments: <200 [...] mg/dL VLDL 12 mg/dL (Normal) Range: 5-40 63-Xkh-539750:00 TSH 0.84 {uIU/mL} (Normal) Range: 0.34-4.82 Plan [...] skin Planned Observations CBC with auto diff (08583)Indication: Diabetes mellitus type II, controlled On: 25-Iom-575097:22 Request HGB A1C (27357)Indication: Diabetes mellitus type II, controlled On: 87-Bnz-558729:21 Request METABOLIC PANEL, COMPREHENSIVE (00136)Indication: Chronic kidney disease, stage 3 On: 15-Ccz-422864:21 Request LIPID PANEL (26076)Indication: Other and unspecified hyperlipidemia On: :21 Request Vitamin D Hydroxy (90885)Indication: Vitamin D deficiency On: 10-Kro-207080:21 Request PARATHORMONE (89445)Indication: Chronic kidney disease, stage 3 On: 06-Mar-20188:59 Request Comments: fax to [phone] MICROALBUMIN: CREATININE RATIO (86679) AND (02478)Indication: Chronic kidney disease, stage 3 On: 06-Mar-20188:55 Request Comments: fax to [phone] RENAL FUNCTION PANEL (08821)Indication: Chronic kidney disease, stage 3 On: 06-Mar-20188:54 Request Comments: fax to [phone] MAGNESIUM (95577)Indication: Chronic kidney disease, stage 3 On: 06-Mar-20188:54 Request Comments: fax to [phone] Parathyroid Hormone-related Peptide (PTH-rP) (45354)Indication: Chronic kidney disease, stage 3 On: 06-Mar-20188:54 Request Comments: fax to [phone] CBC W/AUTO DIFF WBC (39627)Indication: Chronic kidney disease, stage 3 On: 43-Rey-942390:25 Request Parathyroid Hormone-related Peptide (PTH-rP) (28182)Indication: Vitamin D deficiency On: 5-Slg-717497:43 Request Comments: send results to Dr. Santana fax: [phone] VITAMIN D, 1, 25-DIHYDROXY (56746)Indication: Vitamin D deficiency On: 8-Uym-669423:42 Request Comments: send results to Dr. Santana fax: [phone] Clostridium difficile Toxin A+B, EIA (04448)Indication: Chronic diarrhea On: 8-Gwb-499209:36 Request Vitamin D Hydroxy (73362)Indication: Osteopenia On: 5-Tbi-941724:20 Request CBC W/AUTO DIFF WBC (67912)Indication: Hypertension, benign On: 4-Kdq-113127:16 Request CALCIFEDIOL (06869)Indication: Chronic kidney disease, stage 3 On: 03-Aug-20169:04 Request Renal function Panel (05712)Indication: Chronic kidney disease, stage 3 On: :04 Request Magnesium (62819)Indication: Chronic kidney disease, stage 3 On: :04 Request MICROALBUMIN: CREATININE RATIO (72119) AND (59794)Indication: Chronic kidney disease, stage 3 On: :04 Request Parathyroid Hormone-related Peptide (PTH-rP) (77346)Indication: Chronic kidney disease, stage 3 On: :04 Request T4, FREE (THYROXINE) (35037)Indication: Cold feeling On: :31 Request TSH (94989)Indication: Cold feeling On: :31 Request PARATHORMONE (73410)Indication: Chronic kidney disease, stage 3 On: 59-Hlv-19531:18 Request Comments: copy to Dr. Santana [phone] CALCIFIDIOL (22894) VIT D 25Indication: Chronic kidney disease, stage 3 On: 07-Oak-99609:16 Request Comments: copy to Dr. Santana [phone] MAGNESIUM (64869)Indication: Chronic kidney disease, stage 3 On: 54-Qzk-88896:15 Request Comments: copy to Dr. Santana [phone] PROTEIN/CREAT RATIO, URINE (96746)Indication: Chronic kidney disease, stage 3 On: 34-Rea-27442:15 Request Comments: copy to Dr. Santana [phone] LIPID PANEL (24938)Indication: Mixed hyperlipidemia On: 42-Pbw-984839:21 Request CBC with auto diff (82097)Indication: Diabetes mellitus type II, controlled On: 12-Lbq-954462:20 Request METABOLIC PANEL, COMPREHENSIVE (18019)Indication: Diabetes mellitus type II, controlled On: 02-Akb-382234:20 Request HGB A1C (86660)Indication: Diabetes mellitus type II, controlled On: 41-Jbu-371606:10 Request Vitamin D Hydroxy (85025)Indication: Osteopenia On: 22-Btg-148628:08 Request TSH (THYROID STIMULATING HORMONE) (51932)Indication: Depression On: 76-Fdo-564756:06 Request LIPID PANEL (56901)Indication: Other and unspecified hyperlipidemia On: 66-Fpv-184329:06 Request CBC with auto diff (54356)Indication: Diabetes mellitus type II, controlled On: 85-Urn-621573:06 Request METABOLIC PANEL, COMPREHENSIVE (44673)Indication: Diabetes mellitus type II, controlled On: 42-Dtg-552266:06 Request CREATININE CLEARANCE (19024)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 On: 5-Rxp-505333:38 Request Total Protein,24 Hour Urine (70369)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 On: 3-Vbx-593799:38 Request CBC W/AUTO DIFF WBC (57578)Indication: Diabetes mellitus type II, controlled On: 08-Yoy-996959:11 Request HgA1C , Office (48614)Indication: Diabetes mellitus type II, controlled On: 82-Ldo-611066:23 Request CULTURE, SPUTUM (17672)Indication: Cough On: 24-Kme-621707:47 Request HEPATIC FUNCTION PANEL (32221)Indication: Elevated LFTs On: 31-Ckd-17543:24 Request CREATININE CLEARANCE (76645)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 On: 62-Nug-25515:33 Request 24 hour urine for Protein (60483)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 On: :33 Request CBC WITH MANUAL DIFF (73957)Indication: Diabetes mellitus type II, controlled On: :29 Request METABOLIC PANEL, COMPREHENSIVE (00161)Indication: Diabetes mellitus type II, controlled On: 39-Sot-220928:29 Request LIPID PANEL (64772)Indication: Mixed hyperlipidemia On: :29 Request CREATININE CLEARANCE (66242)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 On: 8-Cje-451956:45 Request 24 hour urine for Protein (69114)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 On: 9-Mcs-453355:45 Request CREATININE CLEARANCE (04380)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 On: 30-Opp-863697:57 Request 24 hour urine for Protein (47133)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 On: 86-Mfb-657041:57 Request METABOLIC PANEL, COMPREHENSIVE (88015)Indication: Hypertension, benign On: :32 Request LIPID PANEL (27109)Indication: Mixed hyperlipidemia On: :32 Request C-REACTIVE PROTEIN (22519)Indication: Fatigue On: :24 Request SED RATE ERYTHROCYTE (10387)Indication: Headache On: :24 Request VITAMIN B-12 (CYANOCOBALAMIN) (83897)Indication: Fatigue On: :24 Request LIPID PANEL (61098)Indication: Mixed hyperlipidemia On: :41 Request CBC WITH MANUAL DIFF (61801)Indication: Hypertension, benign On: :41 Request METABOLIC PANEL, COMPREHENSIVE (05835)Indication: Hypertension, benign On: :41 Request CREATININE CLEARANCE (93580)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 On: 8-Jnp-289738:34 Request 24 hour urine for Protein (84118)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 On: 6-Afh-094985:34 Request LIPID PANEL (66673)Indication: Mixed hyperlipidemia On: :22 Request HEPATIC FUNCTION PANEL (48736)Indication: Mixed hyperlipidemia On: 9-Sxf-354358:22 Request Vitamin D Hydroxy (40667)Indication: Hypercalcemia On: 4-Pba-496229:22 Request PHOSPHORUS (34680)Indication: Hypercalcemia On: 6-Jjh-094528:22 Request PARATHORMONE (79088)Indication: Hypercalcemia On: 5-Hog-468906:22 Request METABOLIC PANEL, COMPREHENSIVE (57176)Indication: Hypercalcemia On: 1-Mwr-483328:22 Request CBC WITH MANUAL DIFF (51376)Indication: fsgs On: :58 Request LIPID PANEL (67915)Indication: Mixed hyperlipidemia On: :58 Request METABOLIC PANEL, COMPREHENSIVE (73158)Indication: Hypertension, benign On: :58 Request Blood Glucose , Office (14148)Indication: Diabetes mellitus type II, controlled On: :10 Request TSH (90142)Indication: Diabetes mellitus type II, controlled On: :51 Request METABOLIC PANEL, COMPREHENSIVE (15349)Indication: Diabetes mellitus type II, controlled On: :51 Request CBC WITH MANUAL DIFF ([id number])Indication: Diabetes mellitus type II, controlled On: :51 Request MICROALBUMIN: CREATININE RATIO (24692) AND (86742)Indication: Diabetes mellitus type II, controlled On: :51 Request HEPATIC FUNCTION PANEL (64471)Indication: Other and unspecified hyperlipidemia On: :51 Request LIPID PANEL (31043)Indication: Other and unspecified hyperlipidemia On: :51 Request HgA1C , Office (48581)Indication: Diabetes mellitus type II, controlled On: :37 Request Blood Glucose , Office (03937)Indication: Diabetes mellitus type II, controlled On: :37 Request Planned Procedures Radiology - Knee - Right - Weight On: 21-Apr-2018 Intent BearingBy: Fast DO, Chaparrita A Fast DO, Chaparrita A Radiology - Knee - Left - Weight On: 21-Apr-2018 Intent BearingBy: Fast DO, Chaparrita A Fast DO, Chaparrita A DRAIN/INJECT MAJOR JOINT OR BURSA On: 13-Mar-2018 Intent ()By: SHONDA Andrade Comments: 2 cc Marcaine lot# [id number] exp: 1 cc Kenalog lot# [id number] exp DRAIN/INJECT MAJOR JOINT OR BURSA On: 07-Feb-2018 Intent ()By: Keri Singh MD Comments: lot no [id number] exp date 2017-12-26 DRAIN/INJECT MAJOR JOINT OR BURSA On: 31-Jan-2018 Intent ()By: Keri Singh MD Comments: Lot#[id number]:1-10-40Epotj:intra articular Site given:left knee Given By: Dr. Singh ABN signed DRAIN/INJECT MAJOR JOINT OR BURSA On: 24-Jan-2018 Intent ()By: Keri Singh MD Comments: Lot#[id number]: 5-81-12Tlzzb:intra artciular Site given:left knee Given By: Dr. Singh ABN signed Euflexxa Echo CompleteBy: Fast DO, Chaparrita A On: 16-Dec-2017 Intent Fast DO, Chaparrita A Flu Vaccine (Quadrivalent) [id number]: On: 16-Dec-2017 Intent Fast DO, Chaparrita A Fast DO, Chaparrita A Comments: Lot: #[id number]: 10/01/18Site: L dltd, IMDose prefilled syringegiven by: Jamie reviewed and ABN signed Kenalog Injection, 10 mgm On: 03-Oct-2017 Intent (J3301)By: Keri Singh MD Comments: lot: [id number]: 11/20site/route: L knee Cartoid DopplerBy: Fast DO, Chaparrita A On: 12-Sep-2017 Intent Fast DO, Chaparrita A Comments: november DIGITAL TOMOSYNTHESIS OF On: 12-Sep-2017 Intent BREAST (02986)By: Ambrocio WOLFF Chaparrita A Comments: due november 02 Fast DO, Chaparrita A Kenalog Injection, 10 mgm On: 06-Jun-2017 Intent (J3301)By: Keri Singh MD Comments: bupivacacine 0.5% [id number] exp 09-20 kenalog 40 mg injected in. [id number] 07-21 MRI OF BRAIN WITH AND WITHOUT On: 06-Jun-2017 Intent CONTRAST ([id number])By: Fast DO, Chaparrita A Fast DO, Chaparrita A ELECTROCARDIOGRAM, COMPLETE (ECG) On: 06-Jun-2017 Intent (39735)By: Fast , Chaparrita A Fast Comments: ekg showed normal sinus rhythym, normal axis, no acute st/t wave changes DO, Chaparrita A INFUSION, NORMAL SALINE SOLUTION , On: 10-May-2017 Intent 1000 CC (Special Coverage Comments: 2 liters total Instructions Apply. See MCM: 2048) (J7030)By: Fast DO, Chaparrita A Fast DO, Chaparrita A INFUSION, NORMAL SALINE SOLUTION , On: 10-May-2017 Intent 1000 CC (Special Coverage Comments: lot:[id number]:IV left anticub dose:1000ml given by:eliazar HUMPHREY signedER, UNDERBASTER Instructions Apply. See MCM: 2048) (J7030)By: Chaparrita Albrecht DO, DO, Debra A Radiology - Chest- PA and LatBy: On: 05-May-2017 Intent Keri Singh MD Aerosol Treatment (53473)By: On: 05-May-2017 Intent Keri Singh MD Radiology - ChestBy: Francisco MANN, On: 05-May-2017 Intent Keri Alonzo Comments: call wet read DRAIN/INJECT MAJOR JOINT OR BURSA On: 28-Feb-2017 Intent ()By: Keri Singh MD Comments: 1 cc Kenelog #[id number] cc Marcaine #[id number] Kenalog Injection, 10 mgm On: 28-Feb-2017 Intent (J3301)By: Keri Singh MD ELECTROCARDIOGRAM, COMPLETE (ECG) On: 10-Jan-2017 Intent (60050)By: Chaparrita Albrecht DO Fast Comments: ekg showed normal sinus rhythym, normal axis, no acute st/t wave changes Chaparrita WOLFF Flu Vaccine (Quadrivalent) [id number]: On: 27-Dec-2016 Intent SHONDA Andrade DRAIN/INJECT MAJOR JOINT OR BURSA On: 20-Aug-2016 Intent ()By: Keri Singh MD DRAIN/INJECT MAJOR JOINT OR BURSA On: 13-Aug-2016 Intent ()By: SHONDA Andrade Comments: lot: [id number]:intra articular dose:2ml given by:Dr. Singh ABN signedER, UNDERBASTER injection #3 DOPPLER ULTRASOUND OF RIGHT CAROTID On: 10-Aug-2016 Intent ARTERY (63892)By: Chaparrita Albrecht DO Comments: end october Ambrocio WOLFF Chaparrita A DEXA SCAN AXIAL SKELETON (64566)By: On: 10-Aug-2016 Intent Chaparrita Albrecht DO, DO Chaparrita A Comments: end october SCREENING DIGITAL TOMOSYNTHESIS OF On: 10-Aug-2016 Intent BREAST (17797)By: Chaparrita Albrecht DO Comments: end of october Case Albrecht DOa A DRAIN/INJECT MAJOR JOINT OR BURSA On: 06-Aug-2016 Intent ()By: Keri Singh MD DRAIN/INJECT INTERMED JOINT/BURSA On: 06-Aug-2016 Intent ()By: SHONDA Andrade Comments: lot:[id number]:left knee dose:2mlgiven by:Dr. Francisco HUMPHREY signedER, UNDERBASTER injection number 2 Venous Doppler - LeftBy: Fast DO, On: 03-Aug-2016 Intent Chaparrita A Fast DO, Chaparrita A Comments: This is set up for August 05 at 11am- spoke with Rina in . DRAIN/INJECT INTERMED JOINT/BURSA On: 30-Jul-2016 Intent ()By: Francisco MANN, Keri Alonzo Comments: lot:[id number]:intra articular left knee dose: 2ml given by: Dr. Francisco HUMPHREY signedER, UNDERBASTER injection #1 Radiology - Knee - LeftBy: Fast DO, On: 26-May-2016 Intent Chaparrita A Fast DO, Chaparrita A Flu Vaccine (Quadrivalent) 64629Ye: On: 27-Jan-2016 Intent Fast DO, Chaparrita A Fast DO, Chaparrita A Comments: Lot #:[id number] date:10/01/16mount given:0.5mlRoute: IMSite given: left deltoidGiven by: CARMELINA Hook ADMINISTRATION OF INFLUENZA VIRUS On: 27-Jan-2016 Intent VACCINE (G0008)By: Fast DO, Chaparrita A Fast DO, Chaparrita A DOPPLER ULTRASOUND OF RIGHT CAROTID On: 22-Oct-2015 Intent ARTERY (34161)By: Fast DO, Chaparrita A Fast DO, Chaparrita A MAMMOGRAM, SCREENING, BOTH BREAST On: 22-Oct-2015 Intent (68111)By: Fast DO, Chaparrita A Fast DO, Chaparrita A Ultrasound - RenalBy: Fast DO, On: 14-Jul-2015 Intent Chaparrita A Fast DO, Chaparrita A Radiology - Knee - Left - Weight On: 11-Mar-2015 Intent BearingBy: Fast DO, Chaparrita A Fast DO, Chaparrita A Radiology - Knee - Right - Weight On: 11-Mar-2015 Intent BearingBy: Fast DO, Chaparrita A Fast DO, Chaparrita A Flu Vaccine (Quadrivalent) [id number]: On: 11-Feb-2015 Intent Fast DO, Chaparrita A Fast DO, Chaparrita A EKG (02428)By: Ambrocio WOLFF Chaparrita A On: 05-Nov-2014 Intent Ambrocio DO Chaparrita A Comments: ekg showed normal sinus rhythym, normal axis, no acute st/t wave changes left axis DRAIN/INJECT SMALL JOINT OR BURSA On: 07-Oct-2014 Intent ()By: Keri Singh MD MAMMOGRAM, SCREENING, BOTH BREAST On: 02-Aug-2014 Intent ([id number])By: Chaparrita Albrecht DO Comments: september DO Chaparrita A Cartoid DopplerBy: Ambrocio DO Chaparrita A On: 02-Aug-2014 Intent Ambrocio DO Chaparrita A DEXA SCAN AXIAL SKELETON (52028)By: On: 09-Apr-2014 Intent Ambrocio WOLFF Chaparrita A Ambrocio DO, Chaparrita A Prevnar 13 (64201)By: Ambrocio WOLFF, On: 30-Jan-2014 Intent Chaparrita Albrecht DO, Chaparrita A Comments: Lot:[id number]:05/20Dose:0.5Route:imSite:l armGiven By:Jarred signed FLU VAC, SPLIT, >3 YEARS, INTRAMUSC On: 16-Jan-2014 Intent (87161)By: Chaparrita Albrecht DO Comments: Lot #:[id number] date:12/2015Amount given:0.5mlRoute: IMSite given: left deltoidGiven by: CARMELINA Hook DO Chaparrita A ADMINISTRATION OF INFLUENZA VIRUS On: 16-Jan-2014 Intent VACCINE (G0008)By: Chaparrita Albrecht DO, DO Chaparrita A EKG (76589)By: Chaparrita Albrecht DO On: 17-Oct-2013 Intent Ambrocio WOLFF Chaparrita A Comments: ekg showed normal sinus rhythym, left axis, no acute st/t wave changes Radiology - Chest- PA and LatBy: On: 17-Sep-2013 Intent Chaparrita Albrecht DO A Ambrocio DO, Chaparrita A Aerosol Treatment (58304)By: Ambrocio On: 17-Sep-2013 Intent DO Chaparrita A Ambrocio DO, Chaparrita A MRI - BrainBy: Ambrocio WOLFF Chaparrita A On: 22-Jul-2013 Intent Ambrocio DO Chaparrita A Cartoid DopplerBy: Ambrocio WOLFF Chaparrita A On: 20-Jul-2013 Intent Ambrocio WOLFF Chaparrita A MAMMOGRAM, SCREENING, BOTH BREASTS On: 20-Jul-2013 Intent (72991)By: Case Albrecht DOa A Fast DO, Chaparrita A Eprescribed prescriptions On: 20-Jul-2013 Intent (G8553)By: Ambrocio WOLFF Chaparrita A Fast DO, Chaparrita A Eprescribed prescriptions On: 02-Feb-2013 Intent (G8553)By: Марина Concepcion FLU VAC, SPLIT, >3 YEARS, INTRAMUSC On: 03-Jan-2013 Intent (05441)By: Марина Concepcion Comments: Lot #:[id number] date:mount given:0.5mlRoute: IMSite given: L dltdVIS and ABN signedGiven by: CARMELINA Hook ADMINISTRATION OF INFLUENZA VIRUS On: 03-Jan-2013 Intent VACCINE (G0008)By: Марина Concepcion CT - Abdomen & Pelvis (IV Contrast On: 17-Oct-2012 Intent Needed)By: Chaparrita Albrecht DO Comments: patient will be calling to set up DO, Chaparrita A Eprescribed prescriptions On: 10-Oct-2012 Intent (G8553)By: Марина Concepcion Ear Irrigation (17085)By: Rome, On: 13-Jun-2012 Intent Ivy Comments: Ear Irrigation performed on: right earAmount/color removed cerumen: light brown, small amount removedOUtcome:Pt toleratedUsed wax curettes Wax Cur[place]tes (82084)By: Rome, On: 13-Jun-2012 Intent Ivy PNEUM VAC ADLT/IMUMNOSPR, SBC/INTRM On: 13-Jun-2012 Intent (22227)By: Chaparrita Albrecht DO Comments: Lot:[id number]:09/09/13Dose:0.5mLRoute:IMSite:L armGiven By:BHUMI signed DO Chaparrita A EKG (57550)By: Chaparrita Albrecht DO On: 13-Jun-2012 Intent Ambrocio WOLFF Chaparrita A Comments: ekg showed normal sinus rhythym, normal axis, no acute st/t wave changes MRI - BrainBy: Chaparrita Albrecht DO On: 13-Jun-2012 Intent Fast DO, Chaparrita A Comments: july ADMINISTRATION OF PNEUMOCOCCAL On: 13-Jun-2012 Intent VACCINE (G0009)By: Fast DO, Chaparrita A Fast DO, Chaparrita A Eprescribed prescriptions On: 13-Jun-2012 Intent (G8553)By: Марина Concepcion MAMMOGRAM, SCREENING, BOTH BREASTS On: 28-Dec-2011 Intent (92430)By: Fast DO, Chaparrita A Fast DO, Chaparrita A DXA, BONE DENSITY, AXIAL SKELETON On: 28-Dec-2011 Intent (00258)By: Fast DO, Chaparrita A Fast DO, Chaparrita [...] SPLIT, >3 YEARS, INTRAMUSC On: 28-Dec-2011 Intent (22384)By: Марина Concepcion Comments: Lot #:[id number] date:mount given:0.5mlRoute: IMSite given: left deltoidGiven by: CARMELINA Hook ADMINISTRATION OF INFLUENZA VIRUS On: 28-Dec-2011 Intent VACCINE (G0008)By: Марина Concepcion Aerosol Treatment (81727)By: Ciesa On: 30-Nov-[address] - Abdomen & PelvisBy: Ambrocio DO, On: 21-Sep-2011 Intent Chaparrita A Fast DO, Chaparrita A Comments: with special cuts through the kidney- october EKG (64681)By: Марина Concepcion On: 15-Jun-2011 Intent Comments: ekg [...] Brain/Head (IV Contrast On: 19-Jan-2011 Intent Needed)By: Case Albrecht DOa A Ambrocio Comments: Call results to Dr. Albrecht @ [phone] as soon as resulted please. DO, Chaparrita A Eprescribed prescriptions On: 11-Jan-2011 Intent (G8553)By: Ambrocio DO, Chaparrita A Fast DO, Chaparrita A MAMMOGRAM, SCREENING, BOTH BREASTS On: 11-Jan-2011 Intent (61172)By: Ambrocio WOLFF, Chaparrita A Fast DO, Chaparrita A CT - Sinuses CompleteBy: Ambrocio WOLFF, On: 11-Jan-2011 Intent Chaparrita A Fast DO, Chaparrita A Cartoid DopplerBy: Fast DO, Chaparrita A On: 11-Jan-2011 Intent Fast DO, Chaparrita A ADMINISTRATION OF INFLUENZA VIRUS On: 11-Jan-2011 Intent VACCINE (G0008)By: Марина Concepcion FLU VAC, SPLIT, >3 YEARS, INTRAMUSC On: 11-Jan-2011 Intent (23399)By: Марина Concepcion Eprescribed prescriptions On: 12-Oct-2010 Intent (G8553)By: Ambrocio DO, Chaparrita A Fast DO, Chaparrita A Renal DopplerBy: Fast DO, Chaparrita A On: 12-Oct-2010 Intent Fast DO, Chaparrita A Cartoid DopplerBy: Fast DO, Chaparrita A On: 12-Oct-2010 Intent Fast DO, Chaparrita A Comments: sept TDAP VACCINE >7 IM (17224)By: On: 13-May-2010 Intent Helena Tineo LPN Comments: Lot #[id number]-5/25/13Site-left deltoidgiven by:TIFFANY EKG (42331)By: Марина Concepcion On: 13-May-2010 Intent Comments: ekg showed normal sinus rhythym, normal axis, no acute st/t wave changes Aerosol Treatment (33458)By: Ciesa On: 22-Dec-2009 Intent [facility] Johanna [place] Teddy DopplerBy: Fast DO, Chaparrita A On: 01-Dec-2009 Intent Fast DO, Chaparrita A MAMMOGRAM, SCREENING, BOTH BREASTS On: 01-Dec-2009 Intent ([id number])By: Fast DO, Chaparrita A Fast DO, Chaparrita A DXA, BONE DENSITY, AXIAL SKELETON On: 01-Dec-2009 Intent ([id number])By: Fast DO, Chaparrita A Fast DO, Chaparrita A Ultrasound - SpleenBy: Fast DO, On: 17-Jun-2009 Intent Chaparrita A Fast DO, Chaparrita A EKG (18000)By: Марина Concepcion On: 10-Mar-2009 Intent Comments: ekg showed normal sinus rhythym, normal axis, no acute st/t wave changes FLU VAC, SPLIT, >3 YEARS, INTRAMUSC On: 09-Jan-2009 Intent (76620)By: Stacy Jorge Comments: Lot #[id number]-3/2010Site-left deltoidDose0.5mlgiven by Marycarmen Jorge LPN ADMINISTRATION OF INFLUENZA VIRUS On: 09-Jan-2009 Intent VACCINE (G0008)By: Stacy Jorge MAMMOGRAM, SCREENING, BOTH BREASTS On: 04-Dec-2008 Intent (34801)By: Fast DO, Chaparrita A Fast DO, Chaparrita A MAMMOGRAM, SCREENING, BOTH BREASTS On: 03-Sep-2008 Intent ([id number])By: Fast DO, Chaparrita A Fast DO, Chaparrita A FLU VAC, SPLIT, >3 YEARS, INTRAMUSC On: 16-Jan-2008 Intent (32413)By: Janet Scherer RN Comments: Lot #: [id number] date: 09/10Amount given: 0.5 mlRoute: IMSite given: Left deltoidGiven by: A Ray, UNDERBASTER ADMINISTRATION OF INFLUENZA VIRUS On: 16-Jan-2008 Intent VACCINE (G0008)By: Janet Scherer RN EKG (85905)By: Fast DO, Chaparrita A On: 29-Aug-2007 Intent Fast DO, Chaparrita A Comments: done km ADMINISTRATION OF PNEUMOCOCCAL On: 29-Aug-2007 Intent VACCINE (G0009)By: Fast DO, Chaparrita A Fast DO, Chaparrita A PNEUM VAC ADLT/IMUMNOSPR, SBC/INTRM On: 29-Aug-2007 Intent (00435)By: Ambrocio WOLFF Chaparrita A Ambrocio Comments: 0.5cc given im lt arm [id number] exp 02-13-08 DO, Chaparrita A DXA, BONE DENSITY, AXIAL SKELETON On: 29-Aug-2007 Intent (79404)By: Fast DO, Chaparrita A Fast DO, Chaparrita A MAMMOGRAM, SCREENING, BOTH BREASTS On: 29-Aug-2007 Intent (52156)By: Fast DO, Chaparrita A Fast DO, Chaparrita [...] Indication: Hypertension, benign Encounters Phone Encounter On: 21-Apr-2018 10:11 Encounter Diagnosis: [...] new people and be involved in the [employer] 0 bps are good and sugar looking [...] and supplemental vitamins. The medical issues the tani singh is following up for include blood sugar issues, cardiac issues, depression (anxiety ), high blood pressure, high cholesterol, kidney problems, osteoporosis/osteopenia and other (DDD ). Note for Martinez mason up for chronic medical issues: she has been working with [employer] and trying to work on that- she got rid of respiratory infection but was sick for weeks and was on pred so her sugar up and chol up a bit- trying to add protein shakes drink more water- she is starting back at [facility]- diarrhea resolved- we did talk about going [...] that she had episode where went to [employer] and she couldnt remember where she was- and happened one other time where she didnt recognize the roads- sister had alzheimer s- weight down because was sick- but coming back up- she hasnt done counseling with hospice has been thru before- she lonely- not necessarily unhappy- she doing self help she is singing with [employer]od[employer]- -rodriguez gars are all in low 100s-130- going to [employer] for a month next monthEncounter Diagnosis: Nonsmoker, [...] Eddie and bp is good she joined [employer] sugar up bit doi ng ice cream-the bone density reviewed little thinner she not exercising routienly until just recent at [employer] and sees kidney doc next week and leg swelling better and so is knee with euflexxa- - she likes viibryd- expected grieving, [ADDITIONAL REASON] Follow up, Laboratory [...] chronic medical issues: alot of stress maribel jesusrisheri in hospice - going to intermediate end of month- too much to care [...] cauterized more- her mood pretty good considering sisxter passed a nd boyfriend in hospice- she [...] visual acuity (yearly). Note for Physical exam: [facility] Wellness Physical- Talk about trying Myrbetriq., [ADDITIONAL REASON] Follow up, Laboratory Test Results - Date: (09/2015- [facility] labs). , [ADDITIONAL REASON] Itching - Symptoms [...] stenosis, asymptomatic, right, Hypertension, benign, Colon Polyp, [facility], Osteopenia (733.90), Pruritus, Mixed hyperlipidemia [...] Meningioma (Renamed from 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, 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, BRAIN/REPRODUCTIVE ENDOCRINOLOGIST NEC (794.09)) [facility] Visit [...] fluids and has follwoup with him in mk- chol great- she doesnt feel swain changing so doesnt wish to mri brain, [ADDITIONAL REASON] Follow up tests - Diagnostic tests include other (labs and carotid doppler). Date: (10/28/14). Encounter Diagnosis: Meningioma (Renamed from 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, 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, BRAIN/REPRODUCTIVE ENDOCRINOLOGIST NEC (794.09)), Diabetes, Type II, controlled (250.00), [...] take byetta due to cost in donut hole- - takes ??lorazepam 1-2 times a week [...] Meningioma (Renamed from 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, 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, BRAIN/REPRODUCTIVE ENDOCRINOLOGIST NEC (794.09)), Colon Polyp [facility] [...] Meningioma (Renamed from 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, 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, BRAIN/REPRODUCTIVE ENDOCRINOLOGIST NEC (794.09)), OCCLUSION AND STENOSIS OF CAROTID [...] Meningioma (Renamed from 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, 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, BRAIN/REPRODUCTIVE ENDOCRINOLOGIST NEC (794.09)), Chronic glomerulonephritis with lesion of [...] Meningioma (Renamed from 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, 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, BRAIN/REPRODUCTIVE ENDOCRINOLOGIST NEC (794.09)), Other and unspecified hyperlipidemia (272.4), [...] is sleeping well. Pa End: 22-Jul-2013 22:04 laura has been compliant with instructions. Current medication [...] Meningioma (Renamed from 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, 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, BRAIN/REPRODUCTIVE ENDOCRINOLOGIST NEC (794.09)) [facility] Visit [...] for chronic medical issues: she feels lik mahin rey has been uplifting and not depressed- [...] Meningioma (Renamed from 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, 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, BRAIN/REPRODUCTIVE ENDOCRINOLOGIST NEC (794.09)), Gerd (530.81), Hyperlipidemia, Unspecified (272.4), [...] Meningioma (Renamed from 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, 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, BRAIN/REPRODUCTIVE ENDOCRINOLOGIST NEC (794.09)), Hypertension,benign(401.1), OCCLUSION AND STENOSIS OF [...] Meningioma (Renamed from 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, 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, BRAIN/REPRODUCTIVE ENDOCRINOLOGIST NEC (794.09)), Diabetes, Type II, controlled (250.00), [...] Meningioma (Renamed from 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, 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, BRAIN/REPRODUCTIVE ENDOCRINOLOGIST NEC (794.09)), Hypertension,benign(401.1), Osteopenia (733.90), Depression (311.), [...] weight down 23 pounds- and trying joined [employer]- she feels well - she increased celexa [...] Meningioma (Renamed from 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, 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, BRAIN/REPRODUCTIVE ENDOCRINOLOGIST NEC (794.09)), Chronic glomerulonephritis with lesion of [...] Meningioma (Renamed from 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, 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, BRAIN/REPRODUCTIVE ENDOCRINOLOGIST NEC (794.09)) End: 26-Jan-2011 16:53 [facility] Office Visit On: 19-Jan-2011 14:30 Encounter Diagnosis: brain tumor End: 21-Sep-2011 8:09 [facility] Phone Encounter On: 19-Jan-2011 13:41 Encounter Diagnosis: 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, 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, BRAIN/REPRODUCTIVE ENDOCRINOLOGIST NEC (794.09) End: 19-Jan-2011 13:44 [facility] [...] feeling well- but went back on lexapro becuase had sad- and doing better- her bp [...] another 5 pounds and she really feels byheather helps alot-- little nausea- but tolerable-- her [...] Follow up for chronic medical issues: the [place]llet is not working -even two of them- [...] Note for new patient female physical: on herminia--- on 5- cant bella ate 10 - [...] WITH RADICULOPATHY (724.4) [facility] Payers MedicareAA/[facility]; a guarantor
--- OUTSIDE RECORDS SUMMARY | 2018-06-25 21:28 | XMS RPT_ITS | Continuity of Care Document ---
:1940 Author Organization [facility] Address [address] [place] [address] Phone Care Team Providers Name Role Phone Chaparrita Albrecht DO Unavailable Dr. Marcus Caldera Unavailable Keri Singh MD Unavailable Марина Concepcion Unavailable Unavailable Inna Reynoso Unavailable Unavailable SHONDA Andrade Unavailable Unavailable Unavailable Unavailable Problems Name Dates Details Abortions/Miscarriages Comments: 1 Status: Active Acute maxillary sinusitis, recurrence not specified (J01.00, 461.0) Status: Active Anemia, chronic renal failure, stage 3 (moderate) (N18.3, 285.21) Comments: better Status: Active Anxiety (F41.9, 300.00) Comments: has ativan use bid prn Status: Active Aortic valve disorder (I35.9, 424.1) Status: Active BMI 28.0-28.9,adult (Z68.28, V85.24) Status: Active brain tumor Status: Active Carotid [...] kidney disease, stage 3 (N18.3, 585.3) Comments: chronic stable-continue present regimen Status: Active Colon Polyp (K63.5, 211.3) Comments: due 2016 Status: Active Colon polyps (K63.5, 211.3) Comments: getting colonosocopy tuesday Status: Active COPD with acute exacerbation (Renamed from Acute exacerbation of chronic obstructive airways disease) (J44.1, 491.21) Status: Active Cough (R05, 786.2) 30-Nov-2011 Comments: [...] Status: Active Hypertension, benign (I10, 401.1) Comments: do followup bps at home and call them to me Status: Active Insomnia (G47.00, 780.52) Comments: patient advised not to use with ativan or trazadone Status: Active Kidney mass (N28.89, 593.9) Status: Active Knee pain, unspecified laterality (719.46) Comments: Valorie:lot: [id number]: 09/20site/route: L knee Status: Active Leg pain, [...] Active Other and unspecified hyperlipidemia (E78.5, 272.4) Comments: up a bit she was sick over last month will recheck 3 months if still elevated will up meds- she is starting exercise regimen Status: Active Other intervertebral disc degeneration, lumbar [...] days Quantity: 90 {Tablet} Refills: 3 Ordered:14-Feb-2018 Ambrocio DOChaparrita AFkaren DO, Chaparrita A Start : 14-Feb-2018 Active Atorvastatin Calcium 40 MG Oral Tablet 1 (one) Tablet Tablet qd for 0 days Quantity: 30 {Tablet} Refills: 4 Ordered:27-Jan-2016 Марина Concepcion Start : 27-Jan-2016 Active BD PEN NEEDLE MINI U/F, 31G X 5 MM (Miscellaneous) 1 Misc BID for 0 days Quantity: 1 {Box} Refills: 3 Ordered:18-Sep-2013 , Chaparrita AFast DO, Chaparrita A Start : 18-Sep-2013 Active Benazepril HCl 40 MG Oral Tablet 1 (one) Tablet bid for 0 days Quantity: 90 {Tablet} Refills: 3 Ordered:28-Jun-2017 , Chaparrita AFast DO, Chaparrita A Start : 28-Jun-2017 Active Comments:Dr. Angelo disla Coreg 25 MG Oral Tablet 1/2 Tablet bid for 0 days Quantity: 90 {Tablet} Refills: 3 Ordered:17-Nov-2017 , Chaparrita AFast DO, Chaparrita A Start : 17-Nov-2017 Active FreeStyle Lite Test In Vitro Strip 1 (one) Strip Strip bid for 0 days Quantity: 100 {Strip} Refills: 5 Ordered:07-Mar-2017 , Chaparrita AFast DO, Chaparrita A Start : 07-Mar-2017 Active Comments:Dx:250.00 Hydrocodone-Acetaminophen 5-325 MG Oral Tablet 1 to 2 Tablet q 6hrs, prn for 0 days Quantity: 60 {Tablet} Refills: 0 Ordered:16-Dec-2017 , Chaparrita AFast DO, Chaparrita A Start : 16-Dec-2017 Active Myrbetriq 50 MG Oral Tablet Extended Release 24 Hour 1/2 -1 Tablet ER 24HR qhs for 0 days Quantity: 14 {Tablet} Refills: 0 Ordered:06-Jun-2017 , Chaparrita AFast DO, Chaparrita A Start : 06-Jun-2017 Active PROVENTIL HFA, 108 (90 Base)MCG/ACT (Inhalation Aerosol Solution) 2 (two) Puff(s) tid prn for 0 days Quantity: 1 {Inhaler} Refills: 0 Ordered:17-Sep-2013 DO, Chaparrita AFast DO, Chaparrita A Start : 17-Sep-2013 Active Comments:rinse mouth after use SYMBICORT, 160-4.5MCG/ACT (Inhalation Aerosol) 2 (two) Aerosol Aerosol bid for 30 days Quantity: 1 {Inhaler} Refills: 3 Ordered:28-Sep-2013 Марина Concepcion Start : 28-Sep-2013 Active TraZODone HCl 150 MG Oral Tablet 1 tab Tablet qd for 0 days Quantity: 90 {Tablet} Refills: 3 Ordered:22-Aug-2017 Ambrocio WOLFFChaparrita DO, Debra A Start : 22-Aug-2017 Active Victoza 18 MG/3ML Subcutaneous Solution Pen-injector 1 [...] Active Vitamin D3 1000 UNIT Oral Capsule 3 (three) Capsule qd for 0 days Quantity: 60 {Capsule} Refills: 0 Ordered:16-Dec-2017 Chaparrita Albrecht DO Chaparrita Saxena DO A Start : 16-Dec-2017 Active Aricept 5 MG Oral Tablet 1 (one) Tablet qd in evening for 0 days Quantity: 30 {Tablet} Refills: 3 Ordered:16-Dec-2017 AlfonsorhodaEdelmiraa Start : 28-Sep-2017 End : 16-Dec-2017 Inactive Comments:may use generic Ativan 0.5 MG Oral Tablet 1 Tablet bid/prn for 30 days Quantity: 60 {Tablet} Refills: 0 Ordered:25-Oct-2017 Ambrocio WOLFF Chaparrita Case Saxena DOa A Start : 25-Oct-2017 End : 24-Nov-2017 Inactive Comments:sixty Benzonatate 200 MG Oral Capsule 1 (one) Capsule Capsule bid prn cough for 0 days Quantity: 20 {Capsule} Refills: 0 Ordered:06-Jun-2017 Case Albrecht DOa KADIECase jones DOa A Start : 05-May-2017 End : 06-Jun-2017 Inactive BIAXIN XL PAC, 500MG (Oral Tablet Extended Release 24 Hour) 2 (two) Tablet ER 24HR daily for 14 days Quantity: 28 {Tablet_ER_24HR} Refills: 0 Ordered:16-Feb-2010 Johanna Chang CNP Start : 01-Jan-2010 End : 15-Jan-2010 Inactive [...] days Quantity: 20 {Tablet} Refills: 0 Ordered:10-May-2017 AlfonsorhodaRowenaInna Start : 05-May-2017 End : 10-May-2017 Inactive [...] Quantity: 6 {Tablet} Refills: 0 Ordered:09-Jan-2009 Charlene SANZJohanna Start : 09-Jan-2009 End : 13-Jan-2009 Inactive [...] days Quantity: 28 {Capsule} Refills: 0 Ordered:12-Oct-2010 Fast DO, Chaparrita AFast DO, Chaparrita A Start : 12-Oct-2010 End : 26-Oct-2010 Inactive DULoxetine HCl 30 MG Oral Capsule Delayed Release Particles 1 (one) Capsule DR Part qday for 90 days Quantity: 90 {Capsule} Refills: 3 Ordered:04-May-2016 SHONDA Andrade Start : 27-Jan-2016 End : 04-May-2016 Inactive Dymista 137-50 MCG/ACT Nasal Suspension 1 (one) Suspension 1 spray daily for 0 days Quantity: 1 {[place]} Refills: 0 Ordered:04-May-2016 SHONDA Andrade Start : [...] days Quantity: 90 {Capsule} Refills: 3 Ordered:02-Feb-2013 Fast DO, Chaparrita AFast DO, Chaparrita A Start : 02-Feb-2013 End : 02-Feb-2013 Discontinued LEXAPRO, 20MG (Oral Tablet) 1 tab Tablet qd for 90 days Quantity: 90 {Tablet} Refills: 3 Ordered:12-Oct-2010 Fast DO, Chaparrita AFast DO, Chaparrita A [...] and dispense 8 ounes TOTAL mixed solutionCal [id number] if questions SPECTAZOLE, 1% (External Cream) 1 [...] Start : 02-Aug-2014 End : 11-Feb-2015 Discontinued TRULICITY, 0.75MG/0.5ML (Subcutaneous Solution Pen-injector) 1 (one) Soln Pen-inj Soln Pen-inj injection q week for 0 days Quantity: 6 {Pre-filled_Pen_Syringe} Refills: 0 Ordered:11-Feb-2015 Марина Concepcion Start : 02-Aug-2014 End [...] qd for 90 days Refills: 3 Ordered:14-Jul-2015 Case Albrecht DOa AFast DO, Chaparrita A Start : 14-Jul-2015 End : 14-Jul-2015 Discontinued ZETIA, 10MG (Oral Tablet) 1 tab qd for 0 days Refills: 0 Ordered:06-Dec-2007 Марина Concepcion End : 06-Dec-2007 Discontinued ZOLOFT, 50MG (Oral Tablet) 2 (two) Tablet daily for 0 days Quantity: 60 {Tablet} Refills: 3 Ordered:20-Jul-2013 Ambrocio WOLFF, Chaparrita AFast DO, Chaparrita A Start : 20-Jul-2013 End : 20-Jul-2013 Discontinued ZOLPIDEM TARTRATE, 10MG (Oral Tablet) 1 (one) Tablet Tablet qhs prn for 0 days Quantity: 30 {Tablet} Refills: 0 Ordered:11-Feb-2015 Марина Concepcion Start : 30-Aug-2014 End : 11-Feb-2015 Discontinued Comments:th[age], called to [facility] 08-30-14 [facility] Allergies and Adverse Reactions Name Dates Details [...] V85.24) Status: Inactive as of 06-Jun-2017 BMI 29.0-29.9,adult (Z68.29, V85.25) Status: Resolved as [...] Meningioma (Renamed from 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, 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, BRAIN/COMMUNITY OUTREACH DIRECTOR NEC) (794.09) Comments: had spell transient didnt [...] Insert Prosthetic Lens Completed Comments: 2010- left. 2016 right Cholecystectomy Completed lumbar oumjre==1104 Completed Tonsillectomy Completed Date Value Details 19-Dec-2017 Echocardiogram Complete Result: Comments: See Note; NOTES: [facility] Cardiovascular Services [address] [place] [address] Echo Complete 12/19/17 0800 MR#: [id number] Acct: [id number] Name: CLARENCE ALBERT ep #: [id number] : 1940 77 From: Chuckie Cormier MD Attending Dr: Chaparrita Albrecht DO Status: REG CLI Ordering Dr: Chaparrita Albrecht DO Date: 12/19/17 Location: [facility] Sex: F C Admitted: Reason [...] Dictated: 12/19/17 0800 Date Transcribed: 12/19/17 1022 Finished Cloth Examiner: Signed 07-Dec-2017 Carotid Duplex Ultrasound Result: Comments: See Note; NOTES: [facility] Cardiovascular Services [address] [place] [address] Carotid Duplex Ultrasound 12/06/17 0901 MR#: [id number] Acct: [id number] Name: CLARENCE WHITTINGTON Rep #: [id number] : 1940 77 From: Anurag Loya MD [...] the left vertebral artery. Procedure Carotid Duplex 91646. Exam performed in department. Interpretation Summary Mild (<50%) stenosis right extracranial internal carotid. Mild (<50%) stenosis left extracranial internal carotid. Flow within the vertebral arteries is antegrade bilaterally. __ __ Ordering Physician: Chaparrita Albrecht Performed By: Margot Benton RVT and Student 12/07/17 0809 Date Anurag Loya MD CC: Chaparrita Albrecht DO Date Dictated: 12/06/17900 Date Transcribed: 12/07/17808 Finished Cloth Examiner: Signed 06-Dec-2017 SCREENING MAMM (CAD), BILAT Result: Comments: See Note; NOTES: [facility] Imaging Services [address] [place] [address] SCREENING MAMM (CAD), BILAT MR#: [id number] Acct: [id number] Name: CLARENCE ALBERT Rep #: [id number] : 1940 F 77 From: Misael Hebert MD PCP: Chaparrita Albrecht DO Status: REG CLI Study: SCREENING MAMM (CAD), BILAT Date of Exam: 12/06/17 Exam# [id number] Ordering Dr: Chaparrita Albrecht DO MAMM OGRAPHY [...] delay biopsy of a clinically suspicious abnormality. [id number] Electronically Signed: Misael Hebert MD at 15:31 EDT Tel [phone], Se rvice support , CC: Chaparrita Albrecht DO Finished Cloth Examiner: Signed 10-Jun-2017 Brain W/WO Contrast Result: Comments: See Note; NOTES: [facility] Imaging Services [address] [place] [address] Brain W/WO Contrast MR#: [id number] Acct: [id number] Name: CLARENCE ALBERT Rep #: [id number] : 1940 F 77 From: Laya Montilla MD PCP: Chaparrita Albrecht DO Status: REG CLI Study: Brain W/WO Contrast Date of Exam: 06/10/17 Exam# [id number] Ordering Dr: Chaparrita Albrecht DO STUDY: MRI [...] Service support , CC: Chaparrita Albrecht DO Finished Cloth Examiner: Signed 05-May-2017 Chest PA and Lateral Result: Comments: See Note; NOTES: [facility] Imaging Services [address] [place] [address] Chest PA and Lateral MR#: [id number] Acct: [id number] Name: CLARENCE ALBERT Rep #: [id number] : 1940 F 77 From: Edwar Patino MD PCP: Chaparrita Albrecht DO Status: REG CLI Study: Chest PA and Lateral Date of Exam: 05/05/17 Exam# [id number] Ordering Dr: Keri Singh MD STUDY: X-RAY [...] CC: Keri Singh MD; Chaparrita Albrecht DO Finished Cloth Examiner: Signed 02-Nov-2016 Dexa Bone Density Study (HP) Result: Comments: See Note; NOTES: [facility] Imaging Services [address] [place] [address] Verdana 4d Dexa Bone Density Study (HP) MR#: [id number] Acct: [id number] Name: LYNNE ALBERT Rep #: [id number] : 1940 F 76 From: Misael Hebert MD PCP: Chaparrita Albrecht DO Status: REG CLI Study: Dexa Bone Density Study (HP) Date of Exam: 11/02/16 Exam# [id number] Ordering Dr: Laura DO STUDY: DUAL ENERGY [...] Misael Hebert MD at 11:02 EDT Tel [phone], Service support , CC: Chaparrita Albrecht DO Finished Cloth Examiner: Signed 02-Nov-2016 SCREENING MAMM (CAD), BILAT Result: Comments: See Note; NOTES: [facility] Imaging Services [address] [place] [address] Verdana 4d SCREENING MAMM (CAD), BILAT MR#: [id number] Acct: [id number] Name: CLARENCE ALBERT Rep #: [id number] : 1940 F 76 From: Misael Hebert MD PCP: Chaparrita Albrecht DO Status: [facility] CLI Study: SCREENING MAMM (CAD), BILAT Date of Exam: 11/02/16 Exam# [id number] Ordering Dr: Case Albrecht DO MAMMOGRAPHY - [...] delay biopsy of a clinically suspicious abnormality. [id number] Electronically Signed: Misael Hebert MD at 12:44 EDT Tel [phone], Service support , CC: Chaparrita Albrecht DO Finished Cloth Examiner: Signed 05-Aug-2016 Venous Duplex Lower Extremity Result: Comments: See Note; NOTES: [facility] Cardiovascular Services [address] [place] [address] Venous Duplex US, Unilateral 08/05/16 1053 MR#: [id number] Acct: [id number] Name: CLARENCE WEI Rep #: [id number] : 1940 76 From: Elvin Natarajan MD [...] Dictated: 08/05/16 1053 Date Transcribed: 08/05/16 1127 Finished Cloth Examiner: Signed 27-May-2016 Knee 4 or More Views Result: Comments: See Note; NOTES: [facility] Imaging Services [address] [place] [address] Verdana 4d Knee 4 or More Views MR#: [id number] Acct: [id number] Name: CLARENCE ALBERT Rep #: [id number] : 1940 F 76 From: Misael Hebert MD PCP: Chaparrita Albrecht DO Status: REG CLI Study: Knee 4 or More Views Date of Exam: 05/27/16 Exam# [id number] Ordering Dr: Kylah Linda UDY: X-RAY - [...] MD at 10:41 EST , Service support [phone], CC: Chaparrita Albrecht DO; Kylah Linda DO Finished Cloth Examiner: Signed 13-May-2016 Sinus/Facial Bone Result: Comments: See Note; NOTES: [facility] Imaging Services [address] [place] [address] Verdana 4d Sinus/Facial Bone MR#: [id number] Acct: [id number] Name: CLARENCE ALBERT Rep #: [id number] : 1940 F 76 From: Godwin Winter MD PCP: Chaparrita Albrecht DO Status: REG CLI Study: Sinus/Facial Bone Date of Exam: 05/13/16 Exam# [id number] Ordering Dr: Alejandro Silverman MD STUDY: CT [...] MD at 7:35 EST , Service support [phone], CC: Chaparrita Albrecht DO; Alejandro Silverman MD Finished Cloth Examiner: Signed 21-Apr-2016 Emergency Department Summary Result: Comments: See Note; NOTES: [facility] Medical Records Department [address] [place] [address] Emergency Department Summary MR#: [id number] Acct: [id number] Name: CLARENCE ALBERT Rep #: [id number] : 1940 76 From: Carissa Murphy MD [...] epistaxis. CARISSA MURPHY MD T: NTS JOB: [id number] 04/21/1606 <Electronically signed by Carissa Murphy MD> Date Carissa donovan MD Cosigner Signature (If Indicated): Date CC: Chaparrita Albrecht DO Date Dictated: 04/20/161711 Date Transcribed: 04/20/161711 Finished Cloth Examiner: Signed 20-Apr-2016 Discharge Instruction Result: Comments: See Note; NOTES: [facility] Medical Records Department [facility] [place] [address] Discharge Instruction 04/20/16 1303 MR#: [id number] Acct: [id number] Name: CLARENCE ALBERT Rep #: [id number] : 1940 76 From: Carissa Murphy MD [...] your Primary Care Provider. Call [facility] ([phone]) or report to the closest Emergency Room. Call 911 if necessary. 04/20/16 1645 <Electronically signed by Carissa Murphy MD> Date Carissa Murphy MD Cosigner Signature (If I ndicated): Date CC: Chaparrita Albrecht DO 02-Nov-2015 Carotid Duplex Ultrasound Result: Comments: See Note; NOTES: [facility] Cardiovascular Services [address] [place] [address] Carotid Duplex Ultrasound 10/30/15 1100 MR#: [id number] Acct: [id number] Name: CLARENCE ALBERT Rep #: [id number] : 1940 75 From: Elvin Natarajan MD [...] the left vertebral artery. Procedure Carotid Duplex 58480. The exam was diagnostic. Exam performed in department. Interpretation Summary No significant atherosclerotic plaque or stenosis noted in the right internal carotid artery. Mild (<50%) stenosis left extracranial internal carotid. Armando w within the vertebral arteries is antegrade bilaterally. There has been no significant change since a prior study on 10/18/14. Ordering Physician: Chaparrita Albrecht Performed By: Yana Ramirez, RAHELCS, RVT 11/02/15 1143 Date ___ Elvin Natarajan MD CC: Chaparrita Albrecht DO Date Dictated: 10/30/15 1100 Date Transcribed: 11/02/15 1143 Finished Cloth Examiner: Signed 30-Oct-2015 Bilat Scrn Digital AND CAD Result: Comments: See Note; NOTES: [facility] Imaging Services [address] [place] [address] Verdana 4d Bilat Scrn Digital AND CAD MR#: [id number] Acct: [id number] Name: CLARENCE ALBERT Rep #: [id number] : 1940 F 75 From: Andres Brady MD PCP: Chaparrita Albrecht DO Status: REG CLI Study: Bilat Scrn Digital AND CAD Date of Exam: 10/30/15 Exam# [id number] Ordering Dr: Chaparrita Albrecht DO MAMMOGRAPHY - [...] biop sy of a clinically suspicious abnormality. [id number] Electronically Signed: Andres Brady MD at 17:48 EDT Tel , Service support [phone], CC: Chaparrita Albrecht DO Finished Cloth Examiner: Signed 30-Oct-2015 Saad Jaffe Digital AND CAD Result: Comments: See Note; NOTES: [facility] Imaging Services [address] [place] [address] Verdana 4d Billila Jaffe Digital AND CAD MR#: [id number] Acct: [id number] Name: CLARENCE ALBERT Rep #: [id number] : 1940 F 75 From: Andres Brady MD PCP: Chaparrita Albrecht DO Status: REG CLI Study: Saad Jaffe Digital AND CAD Date of Exam: 10/30/15 Exam# [id number] Ordering Dr: Chaparrita Albrecht DO MAMMOGRAPHY - [...] abnormalities are identified. CC: Chaparrita Albrecht DO Finished Cloth Examiner: Signed 22-Oct-2015 ELECTROCARDIOGRAM, COMPLETE (ECG) (75688) Comments: ekg showed normal sinus rhythym, normal axis, no acute st/t wave changes no change Result: [MEASUREMENTS ANALYSIS] Date of Test: 10/22/2015 14:41:29; Heart Rate: 71; NV Interval: 140; QRS: 94; QT Interval: 384; Corrected QT Interval (QTc): 403; P Wave Staples: 58; QRS Wave Staples: -3; T Wave Staples: 56; Blood Pressure: 128/76 [ECG DIAGNOSTIC STATEMENTS] Date of Test: 10/22/2015 14:41:29; Summary: Sinus Rhythm Low voltage -possible pulmonary disease. ABNORMAL 22-Jul-2015 Kidney and Bladder Result: Comments: See Note; NOTES: [facility] Imaging Services [address] [place] [address] Verdana 4d Kidney and Bladder MR#: [id number] Acct: [id number] Name: ALBERTYaniv Rep #: [id number] : 1940 F 75 From: Nir Sanchez MD PCP: Chaparrita Albrecht DO Status: REG CLI Study: Kidney and Bladder Date of Exam: 07/22/15 Exam# [id number] Ordering Dr: Chaparrita Albrecht DO STUDY: RENAL [...] Service support , CC: Chaparrita Albrecht DO Finished Cloth Examiner: Signed 11-Mar-2015 Knee 4 or More Views Result: Comments: See Note; NOTES: [facility] Imaging Services [address] [place] [address] Verdana 4d Knee 4 or More Views MR#: [id number] Acct: [id number] Name: CLARENCE ALBERT Rep #: [id number] : 1940 F 74 From: Trent Cameron DO PCP: Chaparrita Albrecht DO Status: REG CLI Study: Knee 4 or More Views Date of Exam: 03/11/15 Exam# [id number] Ordering Dr: Case Albrecht DO STUDY: X-RAY [...] at 7:45 EST Tel , Service support [phone], RAD/Knee 4 or More Views IMPRESSION: Degener ative changes within the knee. No acute fracture. Small suprapatellar effusion. Electronically Signed: Trent Cameron DO at 7:45 EST Tel , Service support [phone], CC: Chaparrita Albrecht DO Finished Cloth Examiner: Signed 11-Mar-2015 Knee 4 or More Views Result: Comments: See Note; NOTES: [facility] Imaging Services [address] [place] [address] Verdana 4d Knee 4 or More Views MR#: [id number] Acct: [id number] Name: CLARENCE ALBERT Rep #: [id number] : 1940 F 74 From: Trent Cameron DO PCP: Chaparrita Albrecht DO Status: REG CLI Study: Knee 4 or More Views Date of Exam: 03/11/15 Exam# [id number] Ordering Dr: Case Albrecht DO STUDY: X-RAY [...] at 7:46 EST Tel , Service support [phone], RAD/Knee 4 or More Views IMPRESSION: Mild degenerative changes. No acute bony abnormality. Electronically Signed: Trent Cameron DO at 7:46 EST Tel , Service support [phone], CC: Chaparrita Albrecht DO Finished Cloth Examiner: Signed 18-Oct-2014 Carotid Duplex Ultrasound Result: Comments: See Note; NOTES: [facility] Cardiovascular Services [address] [place] [address] Carotid Duplex Ultrasound 10/18/14 1331 MR#: [id number] Acct: [id number] Na me: CLARENCE ALBERT Rep #: [id number] : 1940 74 From: Elvin Natarajan MD [...] the left vertebral artery. Procedure Carotid Duplex 51449. The exam was diagnostic. Exam performed in [...] Dictated: 10/18/14 1331 Date Transcribed: 10/18/14 1616 Finished Cloth Examiner: Signed 18-Oct-2014 Bilat Scrn Digital AND CAD Result: Comments: See Note; NOTES: [facility] Imaging Services [address] [place] [address] Breast Imaging Report MR#: [id number] Acct: [id number] Name: CLARENCE ALBERT Rep #: [id number] : 1940 F 74 From: Misael Hebert MD PCP: Chaparrita Albrecht DO Status: REG CLI Study: Saad Scrn Digital AND CAD Date of Exam: 10/18/14 Exam# [id number] Ordering Dr: Chaparrita Albrecht DO MAMMOGRAPHY - [...] Misael redmond MD at 13:44 EDT Tel [phone], Service support [phone], CC: Chaparrita Albrecht DO Finished Cloth Examiner: Signed 09-Jul-2014 Dexa Bone Density Study (HP) Result: Comments: See Note; NOTES: [facility] Imaging Services [address] [place] [address] Bone Density Report MR#: [id number] Acct: [id number] Name: CLARENCE ALBERT Rep #: [id number] : 1940 F 74 From: Misael Hebert MD PCP: Chaparrita Albrecht DO Status: REG CLI Study: Dexa Bone Density Study (HP) Date of Exam: 07/09/14 Exam# [id number] Ordering Dr: Chaparrita Albrecht DO STUDY: DUAL [...] Angel Hebert MD at 14:55 EDT Tel [phone], Service support [phone], CC: Chaparrita Albrecht DO Finished Cloth Examiner: Signed 17-Sep-2013 Chest PA and Lateral Result: Comments: See Note; NOTES: [facility] Imaging Services [address] [place] [address] Radiology Report MR#: [id number] Acct: [id number] Name: CLARENCE ALBERT Rep #: [id number] : 1940 F 73 From: David Bennett MD PCP: Chaparrita Albrecht DO Status: REG CLI Study: Chest PA and Lateral Date of Exam: 09/17/13 Exam# [id number] Ordering Dr: Chaparrita Albrecht DO STUDY: X-RAY [...] MD at 20:44 EDT , Service support [phone], RAD/Chest PA and Lateral IMPRESSION: No focal infiltrate or edema. Electronic ally Signed: David Bennett MD at 20:44 EDT , Service support [phone], CC: Chaparrita Albrecht DO Finished Cloth Examiner: Signed 17-Sep-2013 Spirometry (98291) Result: 29-Aug-2013 Carotid Duplex Ultrasound Result: Comments: See Note; NOTES: [facility] Cardiovascular [address] [address] Carotid Duplex Ultrasound 08/24/13 0939 MR#: [id number] Acct: [id number] Chalo e: CLARENCE ALBERT Rep #: [id number] : 1940 73 From: Anurag Loya MD Attending Dr: Chaparrita Albrecht DO Status: REG CLI Ordering Dr: Chaparrita Albrecht DO Date: 08/24/13 Location: [facility] Sex: F C Admitted: Rt. Velocities/BP Lt. [...] in the left bulb. Procedure Carotid Duplex 15481. Exam perfor med in department. Interpretation Summary Mild (<50%) stenosis right extracranial internal carotid. Mild (<50%) stenosis left extracranial internal carotid. Flow within the vertebra l arteries is antegrade bilaterally. Ordering Physician: Chaparrita Albrecht Performed By: Kendal Benton RVT : Chaparrita Albrecht DO Date Dictated: 08/24/13 0939 Date Transcribed: 08/29/13 1118 Finished Cloth Examiner: Signed Immunization Name Dates Details Influenza (3 years and up) on: 16-Jan-2008 Comments: Lot #: [id number] date: 09/10Amount given: 0.5 mlRoute: IMSite given: Left deltoidGiven by: Olivia Bell LPN Influenza (3 years and up) on: 09-Jan-2009 Comments: Lot #[id number]-left deltoidDose0.5mlgiven by Marycarmen Jorge LPN Pneumococcal (2 years and up) on: 29-Aug-2007 Comments: 0.5cc given im lt arm [id number] exp 02-13-08 Family History Unknown Family Member [...] smoker Vital Signs Date Test Result Details :10 Temperature 99.2 f Comments: Method: Temporal [...] 0.00 cm Results Date Description Value Details 81-Vqz-466401:24 HgA1C , Office (97739) HgA1C , Office 6.5 % (Normal) Range: 4.6 - 7.1 :14 LIPID PANEL (98083) Comments: PATIENT WAS FASTINGPERFORMED BY: [facility] Zrhvzl0848 [facility] [id number] LDL/HDL Ratio 1.1 {ratio} (Normal) Range: 0.0-3.2 [...] (Normal) Range: 100-199 :14 Vitamin D Hydroxy (71419) Comments: PATIENT WAS FASTINGPERFORMED BY: Autogeneration MarketingSt. Lawrence Rehabilitation CenterKuptnk1276 [facility] [id number] Vitamin D, 25-Hydroxy 37.8 ng/mL (Normal) Range: 30.0-100.0 Comments: Vitamin D deficiency has been defined by the [facility] Townshipcine and an Endocrine Society practice guideline as alevel of serum 25-OH vitamin D less than 20 ng/mL (1,2).The Endocrine Society went on to further define vitamin Dinsufficiency as a level between 21 and 29 ng/mL (2).1. IOM (Noble of Medicine). 2010. Dietary reference intakes for calcium and D. [place]: The National AcademuControl Press.2. Mira MF, Rosette LOPEZ, Tommy SWAIN, et al. Evaluation, treatment, and prevention of vitamin D deficiency: an Endocrine Society clinical practice guideline. JCEM. 2010; 96(7):1911-30. :14 CBC with auto diff (60385) Comments: PATIENT WAS FASTINGPERFORMED BY: [facility] Fqkgnz8844 [facility] [id number] Immature Grans (Abs) 0.0 {x10E3/uL} (Normal) Range: [...] 3.77-5.28 WBC 4.5 {x10E3/uL} (Normal) Range: 3.4-10.8 07-Dec-20179:14 METABOLIC PANEL, COMPREHENSIVE Comments: PATIENT WAS FASTINGPERFORMED BY: LabCoSt. Lawrence Rehabilitation CenterOucise7681 [facility] [id number] (28654) ALT (SGPT) 10 [iU]/L (Normal) Range: 0-32 [...] 8-27 Glucose 142 mg/dL (Abnormal) Range: 65-99 :40 MICROALBUMIN: CREATININE RATIO Comments: PATIENT WAS FASTINGPERFORMED BY: Autogeneration MarketingSt. Lawrence Rehabilitation CenterJvxurg0367 [facility] [id number] (09993) AND (92378) Alb/Creat Ratio 4213.3 {mg/g_creat} (Abnormal) Range: 0.0-30.0 Albumin, Urine 3206.3 ug/mL (Normal) Comments: Results confirmed ondilution. Creatinine, Urine 76.1 mg/dL (Normal) :40 CBC & PLATELETS (AUTO) (95719) Comments: please fax to Dr. Austin- [phone]; PATIENT WAS FASTINGPERFORMED BY: Autogeneration MarketingSt. Lawrence Rehabilitation CenterUzumjk9820 [facility] [id number] Platelets 148 {x10E3/uL} (Abnormal) Range: 150-379 RDW 14.8 % (Normal) Range: 12.3-15.4 MCHC 33.6 g/dL (Normal) Range: 31.5-35.7 MCH 29.7 pg (Normal) Range: 26.6-33.0 MCV 89 fL (Normal) Range: 79-97 Hematocrit 36.9 % (Normal) Range: 34.0-46.6 Hemoglobin 12.4 g/dL (Normal) Range: 11.1-15.9 RBC 4.17 {x10E6/uL} (Normal) Range: 3.77-5.28 WBC 4.7 {x10E3/uL} (Normal) Range: 3.4-10.8 :40 RENAL FUNCTION PANEL Comments: please fax to Dr. Austin- [phone]; PATIENT WAS FASTINGPERFORMED BY: [facility]6370 [facility] [id number] Information: [id number] FX DR. SANTANA (92979) Albumin 3.1 g/dL (Abnormal) Range: 3.5-4.8 Phosphorus [...] 8-27 Glucose 133 mg/dL (Abnormal) Range: 65-99 80-Cpv-82492:40 MAGNESIUM (97055) Comments: please fax to Dr. Austin- [phone]; PATIENT WAS FASTINGPERFORMED BY: [facility] Qiylvy9443 [facility] [id number] Magnesium 1.9 mg/dL (Normal) Range: 1.6-2.3 66-Eii-19127:40 CALCIFEDIOL (10776) Comments: please fax to Dr. Austin- [phone]; PATIENT WAS FASTINGPERFORMED BY: LabCampus DirectSt. Lawrence Rehabilitation CenterBuoyqw8207 [facility] [id number] Vitamin D, 25-Hydroxy 29.4 ng/mL (Abnormal) Range: 30.0-100.0 Comments: Vitamin D deficiency has been defined by the Noble ofMedicine and an Endocrine Society practice guideline as alevel of serum 25-OH vitamin D less than 20 ng/mL (1,2).The Endocrine Society went on to further define vitamin Dinsufficiency as a level between 21 and 29 ng/mL (2).1. IOM (Noble of Medicine). 2010. Dietary reference intakes for calcium and D. [place]: The National Academies Press.2. Mira OLIVEIRA, Rosette LOPEZ, Tommy SWAIN, et al. Evaluation, treatment, and prevention of vitamin D deficiency: an Endocrine Society clinical practice guideline. JCEM. 2010; 96(7):1911-30. :40 PARATHORMONE (74105) Comments: please fax to Dr. Austin- [phone]; PATIENT WAS FASTINGPERFORMED BY: EVE [facility] Aiwjba8[address] [place] [id number] PTH, Intact 22 pg/mL (Normal) Range: 15-65 :30 COLON BIOPSY (CHOOSE See Note (Normal) Comments: [facility] Tgbvuryond[address] [place], [address] SITE) Comments: Patient: CLARENCE ALBERT : 1940 (77/F) Acct Num: [id number] Phys: Marcus Caldera Unit Num: [id number] Loc: LABSPEC Specimen: [id number] Received: 09/16/171528 Spec Type: C OLON BX TISSUES TISSUES: [...] is totally submitted in one cassette. / Elsi 09/19/17 TC:1 CPT: 41817 x2 HEADER OPERATION: Colonoscopy PRE-OP DIAGNOSIS: History of polyps TISSUE SUBMITTED: A Proximal sigmoid polyp, rule out adenoma, B Transversecolon, rule out adenoma MICROSCOPIC DESCRIPTION Slides are reviewed. M ICROSCOPIC DIAGNOSIS A. Proximal sigmoid polyp, biopsy: Fragments of tubular adenoma. B. Transverse colon polyp, biopsy: Fragments of tubular adenoma. MARCY:dustin 09/20/17 Signed _ Nacho Ardon 09/20/17 <signature on file> :24 METABOLIC PANEL, COMPREHENSIVE Comments: PATIENT NOT FASTINGPERFORMED BY: LabCoSt. [facility] Rehabilitation CenterZmmhan0343 [facility] [id number] (81562) ALT (SGPT) 14 [iU]/L (Normal) Range: 0-32 [...] (Abnormal) Range: 65-99 :07 HgA1C , Office (61616) HgA1C , Office 7.2 % (Abnormal) Range: 4.6 - 7.1 :37 Clostridium difficile Toxin Comments: PATIENT NOT FASTINGPERFORMED BY: LabCoSt. Lawrence Rehabilitation CenterJkxtcv6498 [facility] [id number] A+B, EIA (77537) C difficile Toxins A+B, EIA Negative (Normal) :37 LEUKOCYTE COUNT, FECAL (48804) Comments: PATIENT NOT FASTINGPERFORMED BY: [facility]6370 [facility] [id number] Result 1 NWBC (Normal) Comments: No white blood cells seen. White Blood Cells (WBC), Final report (Normal) Stool :37 OVA & PARASITE DIR SMEAR Comments: PATIENT NOT FASTINGPERFORMED BY: [facility]6370 [facility] [id number] (27494) Result 1 NOCP (Normal) Comments: No ova, cysts, or parasites seen. Ova + Parasite Exam Final report (Normal) Comments: These results were obtained using wet preparation(s) and trichromestained smear. This test does not include testing for Cryptosporidiumparvum, Cyclospora, or Microsporidia. :37 SETH CULTURE-STOOL (05795) Comments: PATIENT NOT FASTINGPERFORMED BY: [facility]6370 [facility] [id number] Information: SRC:ST SRC:ST E coli Shiga Toxin EIA Negative (Normal) Result 1 NCI (Normal) Comments: No Campylobacter species isolated. Campylobacter Culture Final report (Normal) Result 1 NSS (Normal) Comments: No Salmonella or Shigella recovered. Salmonella/Shigella Screen Final report (Normal) :06 Renal function Panel Comments: fax copy to Dr. Santana [phone]; A courtesy copy of this report has been sent [phone].PATIENT NOT FASTINGPERFORMED BY: [facility]6370 [facility] [id number] Information: NURSE DRAW (52724) Albumin 3.5 g/dL (Normal) Range: 3.5-4.8 Phosphorus [...] copy of this report has been sent [phone].PATIENT NOT FASTINGPERFORMED BY: [facility]ExerciseCritical [facility] hospital [id number] :02 Range: 15-65 Vitamin D, 25-Hydroxy 34.7 ng/mL (Normal) Comments: A courtesy copy of this report has been sent [phone].PATIENT NOT FASTINGPERFORMED BY: SunnyBump70 [facility]geia TherapeuticsCritical access hospital [id number] :02 Range: 30.0-100.0 Comments: Vitamin D deficiency has been defined by the Noble ofMedicine and an Endocrine Society practice guideline as alevel of serum 25-OH vitamin D less than 20 ng/mL (1,2).The Endocrine Society went on to further define vitamin Dinsufficiency as a level between 21 and 29 ng/mL (2).1. IOM (Noble of Medicine). 2010. Dietary reference intakes for calcium and D. [place]: The National Academies Press.2. Mira MF, Rosette LOPEZ, Tommy SWAIN, et al. Evaluation, treatment, and prevention of vitamin D deficiency: an Endocrine Society clinical practice guideline. JCEM. 2010; 96(7):1911-30. 9-Xte-046053:02 MICROALBUMIN: CREATININE RATIO Comments: send results to Dr. Santana fax: [phone]; A courtesy copy of this report has been sent [phone].PATIENT NOT FASTINGPERFORMED BY: [employer] Bpzzac4237 BondandDeni [facility] [id number] (87534) AND (68563) Alb/Creat Ratio 4191.2 {mg/g_creat} (Abnormal) Range: 0.0-30.0 Albumin, Urine 2380.6 ug/mL (Normal) Comments: Results confirmed ondilution. Creatinine, Urine 56.8 mg/dL (Normal) 7-Cuf-584045:02 CBC, PLATELETS & MANUAL Comments: send results to Dr. Santana fax: [phone]; A courtesy copy of this report has been sent [phone].PATIENT NOT FASTINGPERFORMED BY: LabCoSt. Lawrence Rehabilitation CenterUtufht4910 [facility] [id number] Information: VIT D25, PTH DIFF (37166) Immature Grans (Abs) 0.0 {x10E3/uL} (Normal) Range: [...] 3.77-5.28 WBC 5.4 {x10E3/uL} (Normal) Range: 3.4-10.8 4-Lzk-332831:02 MAGNESIUM (87334) Comments: send results to Dr. Santana fax: [phone]; A courtesy copy of this report has been sent [phone].PATIENT NOT FASTINGPERFORMED BY: SunnyBump70 [facility] [id number] Magnesium, Serum 1.8 mg/dL (Normal) Range: 1.6-2.3 5-Fum-308643:02 RENAL FUNCTION PANEL (03366) Comments: send results to Dr. Santana fax: [phone]; A courtesy copy of this report has been sent [phone].PATIENT NOT FASTINGPERFORMED BY: SunnyBump70 [address] [facility] [id number] Albumin, Serum 3.7 g/dL (Normal) Range: 3.5-4.8 [...] Glucose, Serum 119 mg/dL (Abnormal) Range: 65-99 6-Zbz-106688:07 LIPID PANEL (62586) Comments: PATIENT WAS FASTINGPERFORMED BY: [employer]6370 [facility] [id number] LDL/HDL Ratio 1.4 {ratio} (Normal) Range: 0.0-3.2 Comments: LDL/HDL Ratio Men Women 1/2 Avg.Risk 1.0 1.5 Av g.Risk 3.6 3.2 2X Avg.Risk 6.2 5.0 3X Avg.Risk 8.0 6.1 LDL Cholesterol Calc 102 mg/dL (Abnormal) Range: 0-99 VLDL Cholesterol Cesar 17 mg/dL (Normal) Range: 5-40 HDL Cholesterol 75 mg/dL (Normal) Triglycerides 84 mg/dL (Normal) Range: 0-149 Cholesterol, Total 194 mg/dL (Normal) Range: 100-199 5-Jno-242904:07 CBC W/AUTO DIFF WBC (61812) Comments: PATIENT WAS FASTINGPERFORMED BY: [facility] Ftcgho8324 [facility] [id number] Immature Grans (Abs) 0.0 {x10E3/uL} (Normal) Range: [...] 3.77-5.28 WBC 4.8 {x10E3/uL} (Normal) Range: 3.4-10.8 2-Kjb-651218:07 METABOLIC PANEL, COMPREHENSIVE Comments: PATIENT WAS FASTINGPERFORMED BY: [facility] Trqxcq2103 [address] [facility] [id number] (14709) ALT (SGPT) 14 [iU]/L (Normal) Range: 0-32 [...] 8-27 Glucose 158 mg/dL (Abnormal) Range: 65-99 9-Ius-563355:07 VITAMIN B-12 (CYANOCOBALAMIN) Comments: PATIENT WAS FASTINGPERFORMED BY: EVE LabCoSt. Lawrence Rehabilitation CenterIidqic6642 [facility] [id number] (06083) Vitamin B12 771 pg/mL (Normal) Range: 232-1245 13-May-20170:00 CDIFF (Molecular) Comments: [facility] Abkdggatim[address] [place], [address] CDIFF See Note (Normal) Comments: Cdiff-MolecularNormal Reference Range = Negative C. Diff DNA Negative- No toxigenic C. Diff DNA DetectedNAAT METHOD Testing was performed using nucleic acid amplification :32 Rapid Flu (74798 x 2) Influenza A Ag Negative (Normal) :35 CBC with auto diff (92431) Comments: PATIENT WAS FASTINGPERFORMED BY: [facility] Gsvmxj7697 [facility] [id number] Immature Grans (Abs) 0.0 {x10E3/uL} (Normal) Range: [...] PANEL, COMPREHENSIVE Comments: PATIENT WAS FASTINGPERFORMED BY: LabCoSt. Lawrence Rehabilitation CenterVjkqzz9751 [facility] [id number] (85853) ALT (SGPT) 16 [iU]/L (Normal) Range: 0-32 [...] Glucose, Serum 145 mg/dL (Abnormal) Range: 65-99 65-Jtr-912025:51 HgA1C , Office (42396) HgA1C , Office 6.7 % (Normal) Range: 4.6 - 7.1 :50 CALCIFEDIOL (45303) Comments: A courtesy copy of this report has been sent [phone].PATIENT WAS FASTINGPERFORMED BY: [employer]6370 [employer] TherapeuticsRevolt Technology [place] [id number] Vitamin D, 25-Hydroxy 40.7 ng/mL (Normal) Range: 30.0-100.0 Comments: Vitamin D deficiency has been defined by the Noble ofK[facility] Health Washington Townshipcine and an Endocrine Society practice guideline as alevel of serum 25-OH vitamin D less than 20 ng/mL (1,2).The Endocrine Society went on to further define vitamin Dinsufficiency as a level between 21 and 29 ng/mL (2).1. IOM (Noble of Medicine). 2010. Dietary reference intakes for calcium and D. [place]: The National Academies Press.2. Mira MF, Rosette LOPEZ, Tommy SWAIN, et al. Evaluation, treatment, and prevention of vitamin D deficiency: an Endocrine Society clinical practice guideline. JCEM. 2010; 96(7):1911-30. 6-Buj-578639:50 PTH (PARATHORMONE) (86648) Comments: A courtesy copy of this report has been sent [phone].PATIENT WAS FASTINGPERFORMED BY: SunnyBump70 Hygeia TherapeuticsCritical access hospital [id number] PTH, Intact 20 pg/mL (Normal) Range: 15-65 7-Jpa-093772:50 MICROALBUMIN: CREATININE RATIO Comments: A courtesy copy of this report has been sent [phone].PATIENT WAS FASTINGPERFORMED BY: [employer]6370 Hygeia TherapeuticsCritical access hospital [id number] (62958) AND (42236) Microalb/Creat Ratio 4376.0 {mg/g_creat} (Abnormal) Range: 0.0-30.0 Microalbumin, Urine 3369.5 ug/mL (Normal) Comments: Results confirmed ondilution. Creatinine, Urine 77.0 mg/dL (Normal) 3-Qvq-787826:50 Renal function Panel Comments: A courtesy copy of this report has been sent [phone].PATIENT WAS FASTINGPERFORMED BY: SunnyBump70 [facility] [id number] Information: FX DR. SANTANA [phone] (39095) Albumin, Serum 3.8 g/dL (Normal) Range: 3.5-4.8 [...] Glucose, Serum 203 mg/dL (Abnormal) Range: 65-99 7-Urn-008327:50 Magnesium (68818) Comments: A courtesy copy of this report has been sent [phone].PATIENT WAS FASTINGPERFORMED BY: Autogeneration MarketingSt. Lawrence Rehabilitation CenterXwmpna4650 [facility] [id number] Magnesium, Serum 1.8 mg/dL (Normal) Range: 1.6-2.3 3-Tgo-562010:53 CBC with auto diff (03660) Comments: A courtesy copy of this report has been sent [phone].PATIENT WAS FASTINGPERFORMED BY: [facility]6370 [facility] [id number] Immature Grans (Abs) 0.0 {x10E3/uL} (Normal) Range: [...] {x10E3/uL} (Normal) Range: 3.4-10.8 :53 LIPID PANEL (15140) Comments: A courtesy copy of this report has been sent [phone].PATIENT WAS FASTINGPERFORMED BY: LabDuane L. Waters Hospital6370 [facility] [id number] LDL/HDL Ratio 1.2 {ratio_units} (Normal) Range: 0.0-3.2 Comments: LDL/HDL Ratio Men Women 1/2 Avg.Risk 1.0 1.5 Av g.Risk 3.6 3.2 2X Avg.Risk 6.2 5.0 3X Avg.Risk 8.0 6.1 LDL Cholesterol Calc 90 mg/dL (Normal) Range: 0-99 VLDL Cholesterol Cesar 13 mg/dL (Normal) Range: 5-40 HDL Cholesterol 76 mg/dL (Normal) Triglycerides 67 mg/dL (Normal) Range: 0-149 Cholesterol, Total 179 mg/dL (Normal) Range: 100-199 8-Ase-022463:53 METABOLIC PANEL, COMPREHENSIVE Comments: A courtesy copy of this report has been sent [phone].PATIENT WAS FASTINGPERFORMED BY: Autogeneration MarketingUNM Children's Psychiatric CenterZhziyf3186 [facility] [id number] (13648) ALT (SGPT) 11 [iU]/L (Normal) Range: 0-32 [...] Glucose, Serum 205 mg/dL (Abnormal) Range: 65-99 44-Vkg-104374:57 HgA1C , Office (50705) HgA1C , Office 7.1 % (Normal) Range: 4.6 - 7.1 10-Nov-20169:09 LIPID PANEL (08128) Comments: PATIENT WAS FASTINGPERFORMED BY: Autogeneration MarketingUNM Children's Psychiatric CenterRrjbze2081 [facility] [id number] LDL/HDL Ratio 1.3 {ratio_units} (Normal) Range: 0.0-3.2 Comments: LDL/HDL Ratio Men Women 1/2 Avg.Risk 1.0 1.5 Av g.Risk 3.6 3.2 2X Avg.Risk 6.2 5.0 3X Avg.Risk 8.0 6.1 LDL Cholesterol Calc 94 mg/dL (Normal) Range: 0-99 VLDL Cholesterol Cesar 31 mg/dL (Normal) Range: 5-40 HDL Cholesterol 71 mg/dL (Normal) Triglycerides 157 mg/dL (Abnormal) Range: 0-149 Cholesterol, Total 196 mg/dL (Normal) Range: 100-199 10-Nov-20169:09 METABOLIC PANEL, COMPREHENSIVE Comments: PATIENT WAS FASTINGPERFORMED BY: LabCoSt. Lawrence Rehabilitation CenterIqkemm2171 [facility] [id number] (61724) ALT (SGPT) 12 [iU]/L (Normal) Range: 0-32 [...] (Abnormal) Range: 65-99 :50 HgA1C , Office (47270) HgA1C , Office 6.7 % (Normal) Range: 4.6 - 7.1 :25 Magnesium, Serum 1.9 mg/dL (Normal) Comments: PATIENT WAS FASTINGPERFORMED BY: [facility] Arhdrw4146 [address] RoadDublin [place] [id number] Range: 1.6-2.3 :25 Microalb/Creat Ratio, Randm Ur Comments: PATIENT WAS FASTINGPERFORMED BY: LabCampus Directrp Vxqadc3890 [address] RoadDublin [place] [id number] Microalb/Creat Ratio 2652.0 {mg/g_creat} Range: 0.0-30.0 (Abnormal) Microalbumin, Urine 2482.3 ug/mL (Normal) Comments: Results confirmed ondilution. Creatinine, Urine 93.6 mg/dL (Normal) PTH, Intact 26 pg/mL (Normal) Comments: PATIENT WAS FASTINGPERFORMED BY: LabCampus Directrp Mdimol5479 [address] RoadDublin [place] [id number] :25 Range: 15-65 :25 Renal Panel (10) Comments: PATIENT WAS FASTINGPERFORMED BY: [facility] Lmwklj4829 [address] RoadDublin [place] [id number] Phosphorus, Serum 4.3 mg/dL (Normal) Range: 2.5-4.5 :25 Thyroxine (T4) Free, Direct, S Comments: PATIENT WAS FASTINGPERFORMED BY: [facility] Wbikws1222 [address] RoadDublin [place] [id number] T4,Free(Direct) 1.08 ng/dL (Normal) Range: 0.82-1.77 : TSH 2.980 {uIU/mL} Comments: PATIENT WAS FASTINGPERFORMED BY: [facility] Ueamcg7924 [address] RoadDublin [place] [id number] 25 (Normal) Range: 0.450-4.500 : Vitamin D, 25-Hydroxy 37.1 ng/mL (Normal) Comments: PATIENT WAS FASTINGPERFORMED BY: [employer] Sulphz0718 [facility] [id number] 25 Range: 30.0-100.0 Comments: Vitamin D deficiency has been defined by the Noble ofMedicine and an Endocrine Society practice guideline as alevel of serum 25-OH vitamin D less than 20 ng/mL (1,2).The Endocrine Society went on to further define vitamin Dinsufficiency as a level between 21 and 29 ng/mL (2).1. IOM (Noble of Medicine). 2010. Dietary reference intakes for calcium and D. [place]: The National Academies Press.2. Mira MF, Rosette LOPEZ, Tommy SWAIN, et al. Evaluation, treatment, and prevention of vitamin D deficiency: an Endocrine Society clinical practice guideline. JCEM. 2010; 96(7):1911-30. -:25 CBC W/AUTO DIFF WBC (62801) Comments: PATIENT WAS FASTINGPERFORMED BY: [facility] Vbfcyy3998 [facility] [id number] Immature Grans (Abs) 0.0 {x10E3/uL} (Normal) Range: [...] COMPREHENSIVE Comments: PATIENT WAS FASTINGPERFORMED BY: [facility] Omnvti6768 [facility] [id number]; non- emergent till apt (09909) ALT (SGPT) 10 [iU]/L (Normal) Range: 0-32 [...] Glucose, Serum 122 mg/dL (Abnormal) Range: 65-99 :25 LIPID PANEL (64968) Comments: PATIENT WAS FASTINGPERFORMED BY: GreenE[employer] Power CorpDuane L. Waters Hospital6370 [facility] [id number] LDL/HDL Ratio 0.9 {ratio_units} (Normal) Range: 0.0-3.2 Comments: LDL/HDL Ratio Men Women 1/2 Avg.Risk 1.0 1.5 Av g.Risk 3.6 3.2 2X Avg.Risk 6.2 5.0 3X Avg.Risk 8.0 6.1 LDL Cholesterol Calc 65 mg/dL (Normal) Range: 0-99 VLDL Cholesterol Cesar 19 mg/dL (Normal) Range: 5-40 HDL Cholesterol 75 mg/dL (Normal) Triglycerides 93 mg/dL (Normal) Range: 0-149 Cholesterol, Total 159 mg/dL (Normal) Range: 100-199 04-Moh-683549:54 HgA1C , Office (84564) HgA1C , Office 6.6 % (Normal) Range: 4.6 - 7.1 97-Lls-812316:1 Magnesium, Serum 2.1 mg/dL (Normal) Comments: PATIENT WAS FASTINGPERFORMED BY: GreenE[employer] Power CorpDuane L. Waters Hospital6370 [facility] [id number] 2 Range: 1.6-2.3 52-Qpp-093646:12 Microalb/Creat Ratio, Randm Ur Comments: PATIENT WAS FASTINGPERFORMED BY: GreenE[employer] Power CorpDuane L. Waters Hospital6370 [facility] [id number] Microalb/Creat Ratio 1863.4 {mg/g_creat} (Abnormal) Range: 0.0-30.0 Microalbumin, Urine 1416.2 ug/mL (Normal) Comments: Results confirmed ondilution. Creatinine, Urine 76.0 mg/dL (Normal) 75-Cud-908959:12 Microscopic Examination Comments: PATIENT WAS FASTINGPERFORMED BY: GreenE[employer] Power CorpDuane L. Waters Hospital6370 [facility] [id number] Bacteria None seen (Normal) Mucus Threads Present (Normal) Cast Type Hyaline casts (Normal) Casts Present {/lpf} (Abnormal) Epithelial Cells (non 0-10 {/hpf} Range: 0 - 10 renal) (Normal) RBC 3-10 {/hpf} Range: 0 - 2 (Abnormal) WBC 6-10 {/hpf} Range: 0 - 5 (Abnormal) PTH, Intact 36 pg/mL (Normal) Comments: PATIENT WAS FASTINGPERFORMED BY: [employer] Uuprni4554 [facility] [id number] 0:12 Range: 15-65 Vitamin D, 25-Hydroxy 42.9 ng/mL (Normal) Comments: PATIENT WAS FASTINGPERFORMED BY: [employer] Zwahhg1091 [facility] [id number] 0:12 Range: 30.0-100.0 Comments: Vitamin D deficiency has been defined by the Noble ofMedicine and an Endocrine Society practice guideline as alevel of serum 25-OH vitamin D less than 20 ng/mL (1,2).The Endocrine Society went on to further define vitamin Dinsufficiency as a level between 21 and 29 ng/mL (2).1. IOM (Noble of Medicine). 2010. Dietary reference intakes for calcium and D. [place]: The National Academies Press.2. Mira MF, Rosette NC, Tommy SWAIN, et al. Evaluation, treatment, and prevention of vitamin D deficiency: an Endocrine Society clinical practice guideline. JCEM. 2010; 96(7):1911-30. 22-Mcp-975003:12 URINALYSIS, W/ MICRO (74785) Comments: PATIENT WAS FASTINGPERFORMED BY: [employer] Kgdsfr7998 [facility] [id number] Microscopic Examination See below: (Normal) Comments: Microscopic was indicated and was performed. Nitrite, Urine Negative (Normal) Urobilinogen,Semi-Qn 0.2 mg/dL (Normal) Range: 0.2-1.0 Bilirubin Negative (Normal) Occult Blood Negative (Normal) Ketones Negative (Normal) Glucose Negative (Normal) Protein 4+ (Abnormal) WBC Esterase Trace (Abnormal) Appearance Clear (Normal) Urine-Color Yellow (Normal) pH 6.0 (Normal) Range: 5.0-7.5 Specific [place] 1.015 (Normal) Range: 1.005-1.030 43-Gza-722955:12 CBC W/AUTO DIFF WBC (67856) Comments: PATIENT WAS FASTINGPERFORMED BY: [employer] Frequency [facility] [id number] Immature Grans (Abs) 0.0 {x10E3/uL} (Normal) Range: [...] 3.77-5.28 WBC 6.2 {x10E3/uL} (Normal) Range: 3.4-10.8 70-Gen-894244:12 METABOLIC PANEL, COMPREHENSIVE Comments: PATIENT WAS FASTINGPERFORMED BY: Autogeneration MarketingSt. Lawrence Rehabilitation CenterNgwlsb1411 [facility] [id number] (86527) ALT (SGPT) 14 [iU]/L (Normal) Range: 0-32 [...] Glucose, Serum 154 mg/dL (Abnormal) Range: 65-99 11-Fnz-006276:12 LIPID PANEL (88053) Comments: PATIENT WAS FASTINGPERFORMED BY: LabDuane L. Waters Hospital6370 [facility] [id number] LDL/HDL Ratio 0.7 {ratio_units} (Normal) Range: 0.0-3.2 Comments: LDL/HDL Ratio Men Women 1/2 Avg.Risk 1.0 1.5 Av g.Risk 3.6 3.2 2X Avg.Risk 6.2 5.0 3X Avg.Risk 8.0 6.1 LDL Cholesterol Calc 49 mg/dL (Normal) Range: 0-99 VLDL Cholesterol Cesar 14 mg/dL (Normal) Range: 5-40 HDL Cholesterol 75 mg/dL (Normal) Triglycerides 68 mg/dL (Normal) Range: 0-149 Cholesterol, Total 138 mg/dL (Normal) Range: 100-199 33-Piw-296140:50 HgA1C , Office (71960) HgA1C , Office 6.7 % (Normal) Range: 4.6 - 7.1 96-Gtr-903134:36 VITAMIN B-12 (CYANOCOBALAMIN) Comments: PATIENT WAS FASTINGPERFORMED BY: [facility]6370 [facility] [id number] (99776) Vitamin B12 802 pg/mL (Normal) Range: 211-946 41-Anb-150400:36 LIPID PANEL (89315) Comments: PATIENT WAS FASTINGPERFORMED BY: [facility] [place] [address] [id number] LDL/HDL Ratio 0.8 {ratio_units} (Normal) Range: 0.0-3.2 [...] Cholesterol, Total 161 mg/dL (Normal) Range: 100-199 16-Ejd-199048:36 LDH (LD) (LACTATE DEHYDROGENASE) Comments: PATIENT WAS FASTINGPERFORMED BY: [facility]6370 [facility] [id number] (22729) LDH 217 [iU]/L (Normal) Range: 119-226 52-Cpa-324562:36 CBC W/AUTO DIFF WBC (38609) Comments: PATIENT WAS FASTINGPERFORMED BY: [facility]6370 [facility] [id number] Immature Grans (Abs) 0.0 {x10E3/uL} (Normal) Range: [...] 3.77-5.28 WBC 10.6 {x10E3/uL} (Normal) Range: 3.4-10.8 65-Yjy-125379:36 METABOLIC PANEL, COMPREHENSIVE Comments: PATIENT WAS FASTINGPERFORMED BY: [facility] Zergic8774 [facility] [id number] (12882) ALT (SGPT) 15 [iU]/L (Normal) Range: 0-32 [...] Glucose, Serum 137 mg/dL (Abnormal) Range: 65-99 53-Vio-030717:36 TSH (06664) Comments: PATIENT WAS FASTINGPERFORMED BY: MST Arizqc5360 [facility] [id number] TSH 0.560 {uIU/mL} (Normal) Range: 0.450-4.500 29-Lsl-68810:02 Renal function Panel (68694) Comments: PATIENT WAS FASTINGPERFORMED BY: [facility] Eewcyf2552 [facility] [id number] Albumin, Serum 3.7 g/dL (Normal) Range: 3.5-4.8 [...] 137 mg/dL (Abnormal) Range: 65-99 :02 MAGNESIUM (97525) Comments: PATIENT WAS FASTINGPERFORMED BY: [facility]Critical [facility] hospital [id number] Magnesium, Serum 2.2 mg/dL (Normal) Range: 1.6-2.3 :02 MICROALBUMIN: CREATININE RATIO Comments: PATIENT WAS FASTINGPERFORMED BY: SunnyBump70 BondandDeni [facility] HospitalHole 19[facility] hospital [id number] (33922) AND (00426) Microalb/Creat Ratio 2038.7 {mg/g_creat} (Abnormal) Range: 0.0-30.0 Microalbumin, Urine 1223.2 ug/mL (Normal) Comments: Results confirmed ondilution. Creatinine, Urine 60.0 mg/dL (Normal) :02 CBC WITH MANUAL DIFF Comments: PATIENT WAS FASTINGPERFORMED BY: [employer] [facility] HospitalHole 19[facility] access hospital [id number] Information: [id number] (86577) Immature Grans (Abs) 0.0 {x10E3/uL} (Normal) Range: [...] {x10E3/uL} (Normal) Range: 3.4-10.8 :02 HGB A1C (57331) Comments: PATIENT WAS FASTINGPERFORMED BY: Architoniclin6370 [facility] [id number] Hemoglobin A1c 6.4 % (Abnormal) Range: 4.8-5.6 Comments: . Pre-diabetes: 5.7 - 6.4 Diabetes: >6.4 Glycemic control for adults with diabetes: <7.0 :02 Lipid Panel (15224) Comments: PATIENT WAS FASTINGPERFORMED BY: SunnyBump70 [facility] [id number] LDL/HDL Ratio 1.1 {ratio_units} (Normal) Range: 0.0-3.2 [...] Cholesterol, Total 160 mg/dL (Normal) Range: 100-199 90-Xmf-088656:03 HgA1C , Office (54626) HgA1C , Office 6.1 % (Normal) Range: 4.6 - 7.1 :24 CBC W/AUTO DIFF WBC Comments: PATIENT WAS FASTINGPERFORMED BY: LabCoSt. [facility] Rehabilitation CenterIdinvl1114 [facility] [id number] Information: [id number] (92907) Immature Grans (Abs) 0.0 {x10E3/uL} (Normal) Range: [...] CREATININE RATIO Comments: PATIENT WAS FASTINGPERFORMED BY: [employer] Hkwpbu9538 [facility] [id number] (97990) AND (40634) Microalb/Creat Ratio 1223.8 {mg/g_creat} (Abnormal) Range: 0.0-30.0 Microalbumin, Urine 1012.1 ug/mL (Abnormal) Range: 0.0-17.0 Comments: Results confirmed ondilution. Creatinine, Urine 82.7 mg/dL (Normal) Range: 15.0-278.0 :24 METABOLIC PANEL, COMPREHENSIVE Comments: PATIENT WAS FASTINGPERFORMED BY: MST Otcuxk5089 [facility] [id number] (16841) ALT (SGPT) 12 [iU]/L (Normal) Range: 0-32 [...] mg/dL (Abnormal) Range: 65-99 :24 LIPID PANEL (09962) Comments: PATIENT WAS FASTINGPERFORMED BY: [facility] Qczrde3616 [facility] [id number] LDL/HDL Ratio 1.1 {ratio_units} (Normal) Range: 0.0-3.2 [...] Range: 100-199 :30 CBC W/Diff, Automated Comments: [facility] Aqmcwzgepk[address] [place], [place], [id number] Absolute Lymph 0.83 {X10_3/ul} (Normal) Range: 0.83-4.51 [...] (Normal) Range: 4.4-11.0 :30 Hemoglobin A1c Comments: [address] [place], [place], [phone](759) HGB A1C 6.1 % (Normal) Range: 4.2-6.3 :30 Magnesium Comments: [address] [place], [place], [phone](632) MG 1.8 mg/dL (Normal) Range: 1.8-2.4 :30 Protein+Creatinine Ratio,Urine Comments: [address] [place], [place], [phone](979) PROT:CRE RATIO 2121 {mg/g_CRE} (Abnormal) Range: 0-200 PROTEIN,UR.RAN. 164.2 mg/dL (Abnormal) UR CREAT 77.40 mg/dL (Normal) :30 Renal Profile Comments: [facility] [address] [place], [place], [phone](728) CO2 27.0 mmol/L (Normal) Range: 21.0-32.0 CL [...] 126 mg/dLsuggests DIABETES MELLITUS per A.D.A. criteria. 88-Vuh-88906:00 24 HR UR Creatinine Clearance Comments: [facility] Rswjhyiriv0248 [facility]. [place], [place], [phone] CREAT CLEARANCE 24 ml/min (Abnormal) Range: 100-200 URINE CREAT 20.6 mg/dL (Normal) EST GFR - AA 38 mL/min (Abnormal) Comments: GFR Calc EST GFR 31 mL/min (Abnormal) Comments: Non- GFR Calc SERUM CREAT 1.7 mg/dL (Abnormal) Range: 0.6-1.0 UR TOTAL VOLUME 2800 mL (Normal) UR COLLECT TIME 24.0 {HOURS} (Normal) 45-Tox-41512:00 Protein, Urine 24HR Comments: [facility] Nseqswquwk3501 [facility] [place], [address] 24hr UR PROTEIN 1178.8 {mg/24HR} (Abnormal) URINE PROTEIN 42.1 mg/dL (Abnormal) UR TOTAL VOLUME 2800 mL (Normal) UR COLLECT TIME 24.0 {HOURS} (Normal) 3-Fcd-643172:29 Metabolic Panel, Basic Comments: PATIENT NOT FASTINGPERFORMED BY: LabCoSt. Lawrence Rehabilitation CenterYytslw9016 [facility] [id number] Information: [id number] (16380) Calcium, Serum 9.3 mg/dL (Normal) Range: 8.7-10.3 [...] Basic Comments: tuesday; PATIENT NOT FASTINGPERFORMED BY: LabCoSt. Lawrence Rehabilitation CenterKkterz6394 [facility] [id number] Information: [id number] (36764) Calcium, Serum 9.0 mg/dL (Normal) Range: 8.7-10.3 [...] Glucose, Serum 149 mg/dL (Abnormal) Range: 65-99 69-Efq-853444:32 HgA1C , Office (41517) HgA1C , Office 6.2 % (Normal) Range: 4.6 - 7.1 :31 Rapid Strep Test, Office (01240) Comments: neg Rapid Strep Test, Office Negative (Normal) :06 THROAT CULTURE (14660) Comments: PATIENT NOT FASTINGPERFORMED BY: CB [facility] Rkpoke2347 [address] RoadDublin [place] [id number] Information: [id number] Result 1 RRF (Normal) Comments: Routine respiratory luis Upper Respiratory Culture Final report (Normal) :52 TSH (84444) Comments: PATIENT WAS FASTINGPERFORMED BY: CB [facility] Ldvjml6631 [address] RoadDublin [place] [id number] TSH 2.190 {uIU/mL} (Normal) Range: 0.450-4.500 :52 Vitamin D Hydroxy (92698) Comments: PATIENT WAS FASTINGPERFORMED BY: CB [facility] Gfeawg2945 [address] RoadDublin [place] [id number] Vitamin D, 25-Hydroxy 43.8 ng/mL (Normal) Range: 30.0-100.0 Comments: Vitamin D deficiency has been defined by the Noble ofMedicine and an Endocrine Society practice guideline as alevel of serum 25-OH vitamin D less than 20 ng/mL (1,2).The Endocrine Society went on to further define vitamin Dinsufficiency as a level between 21 and 29 ng/mL (2).1. IOM (Noble of Medicine). 2010. Dietary reference intakes for calcium and D. [place]: The National Academies Press.2. Mira MF, Rosette NC, Tommy SWAIN, et al. Evaluation, treatment, and prevention of vitamin D deficiency: an Endocrine Society clinical practice guideline. JCEM. 2010; 96(7):1911-30. :52 LIPID PANEL (04884) Comments: PATIENT WAS FASTINGPERFORMED BY: CB [facility] Ihalhy6616 [address] RoadDublin [place] [id number] LDL/HDL Ratio 1.3 {ratio_units} (Normal) Range: 0.0-3.2 [...] auto diff Comments: PATIENT WAS FASTINGPERFORMED BY: LabCoSt. Lawrence Rehabilitation CenterXemzcy9159 [facility] [id number] Information: [id number] (63397) Immature Grans (Abs) 0.0 {x10E3/uL} (Normal) Range: [...] COMPREHENSIVE Comments: PATIENT WAS FASTINGPERFORMED BY: [facility] Fizcpj0811 [facility] [id number] (16311) ALT (SGPT) 19 [iU]/L (Normal) Range: 0-32 [...] Glucose, Serum 127 mg/dL (Abnormal) Range: 65-99 :08 HgA1C , Office (98682) HgA1C , Office 6.4 % (Normal) Range: 4.6 - 7.1 4-Bfv-501447:00 Creatinine Clearance Comments: PATIENT NOT FASTINGPERFORMED BY: [facility]6370 [facility] [id number] Information: [id number] S TART Creatinine Clearance 33 mL/min (Abnormal) Range: 88-128 Comments: The above range is based on 1.73 square meter average body surfacearea. Creatinine, Ur 24hr 642.0 {mg/24_hr} (Abnormal) Range: 800.0-1800.0 Creatinine, Urine 34.7 mg/dL (Normal) Range: 15.0-278.0 eGFR If Africn Am 43 mL/min/1.73 (Abnormal) eGFR If NonAfricn Am 37 mL/min/1.73 (Abnormal) Creatinine, Serum 1.37 mg/dL (Abnormal) Range: 0.57-1.00 5-Sxh-614963:00 Protein Total, Qn, 24-Hr Comments: PATIENT NOT FASTINGPERFORMED BY: GreenElectric Power CorpDuane L. Waters Hospital6370 [facility] [id number] Urine Prot,24hr calculated 1309.8 {mg/24_hr} (Abnormal) Range: 30.0-150.0 Protein,Total,Urine 70.8 mg/dL (Abnormal) Range: 0.0-15.0 :01 CBC W/Diff, Automated Comments: Test performed at:[facility] Nikapczghq[address] [place] [address] Absolute Neut 3.1 {X10_3/uL} (Normal) [...] Range: 4.4-11.0 :01 Magnesium Comments: Test performed at:[facility] Q[address]kw[address] [place] [address] MG 2.0 mg/dL (Normal) Range: 1.8-2.4 :01 Protein+Creatinine Ratio,Urine Comments: Test performed at:[facility] Lswdrmndfv[address] [place] [address] 635[address] PROT:CRE RATIO 2232 {mg/g_CRE} (Abnormal) Range: 0-200 PROTEIN,UR.RAN. 160.3 mg/dL (Abnormal) UR CREAT 71.8 mg/dL (Normal) :01 Renal Profile Comments: Test performed at:[facility] Liizxdzefg[address] [place] [address] 89352 CO2 32.0 mmol/L (Normal) Range: 21.0-32.0 CL [...] mg/dL (Normal) Range: 70-110 :08 LIPID PANEL (25184) Comments: PATIENT WAS FASTINGPERFORMED BY: Autogeneration MarketingSt. Lawrence Rehabilitation CenterSvtqwx9205 [facility] [id number] LDL/HDL Ratio 1.0 {ratio_units} (Normal) Range: 0.0-3.2 [...] METABOLIC PANEL, Comments: PATIENT WAS FASTINGPERFORMED BY: Autogeneration MarketingSt. Lawrence Rehabilitation CenterDpanrg7763 [facility] [id number] Information: [id number] COMPREHENSIVE (23933) ALT (SGPT) 29 [iU]/L (Normal) Range: 0-32 [...] (Abnormal) Range: 65-99 :59 HgA1C , Office (68837) HgA1C , Office 6.5 % (Normal) Range: 4.6 - 7.1 :54 CBC W/AUTO DIFF WBC Comments: PATIENT WAS FASTINGPERFORMED BY: LabCoSt. Lawrence Rehabilitation CenterNqztql1873 [facility] [id number] Information: [id number] (28240) Immature Grans (Abs) 0.0 {x10E3/uL} (Normal) Range: [...] COMPREHENSIVE Comments: PATIENT WAS FASTINGPERFORMED BY: [facility] Abkknu4171 [facility] [id number]; non- emergent till apt (03055) ALT (SGPT) 13 [iU]/L (Normal) Range: 0-32 [...] mg/dL (Abnormal) Range: 65-99 :54 LIPID PANEL (08433) Comments: PATIENT WAS FASTINGPERFORMED BY: LabCoSt. Lawrence Rehabilitation CenterVomwvu3293 [facility] [id number] LDL/HDL Ratio 1.1 {ratio_units} (Normal) Range: 0.0-3.2 [...] (Normal) Range: 100-199 :29 HgA1C , Office (76502) HgA1C , Office 6.6 % (Normal) Range: 4.6 - 7.1 :12 CBC W/Diff, Automated Comments: Test performed at:[facility] Phihubrrzf040[address] [place] [address] ; handled by Dr. Santana Absolute Lymph [...] Range: 4.4-11.0 :12 Magnesium Comments: Test performed at:[facility] [address]wefymqmwf[address] [place] [address] 810[address] MG 2.0 mg/dL (Normal) Range: 1.8-2.4 :12 Microalb:Creat Ratio,Random UR Comments: Test performed at:[facility] Rfqmkpoamf[address] [place] [address] ; Dr. Angelo LING:CREAT 1483.0 {mg/g_CRE} (Abnormal) MICROALBUMIN,UR 918.0 mg/L (Normal) UR CREAT 61.9 mg/dL (Normal) :12 Renal Profile Comments: Test performed at:[facility] Zoqtuoktdk7[address] [place] [address] 46370 CO2 29.0 mmol/L (Normal) Range: 21.0-32.0 CL [...] 126 mg/dLsuggests DIABETES MELLITUS per A.D.A. criteria. 88-Tvh-638835:20 LIPID PANEL (12932) Comments: PATIENT WAS FASTINGPERFORMED BY: Autogeneration MarketingSt. Lawrence Rehabilitation CenterJqkqor6934 [facility] [id number] LDL/HDL Ratio 1.0 {ratio_units} (Normal) Range: 0.0-3.2 [...] Cholesterol, Total 151 mg/dL (Normal) Range: 100-199 25-Fwe-207091:20 METABOLIC PANEL, Comments: PATIENT WAS FASTINGPERFORMED BY: Autogeneration MarketingSt. Lawrence Rehabilitation CenterGprzrj5533 [facility] [id number] Information: [id number] COMPREHENSIVE (00228) ALT (SGPT) 16 [iU]/L (Normal) Range: 0-32 [...] Glucose, Serum 148 mg/dL (Abnormal) Range: 65-99 54-Fna-698075:21 CREATININE CLEARANCE Comments: PATIENT WAS FASTINGPERFORMED BY: LabDuane L. Waters Hospital6370 [facility] [id number] Information: [id number] START 04/02/14@9AM FINISH 04/03/14 6:00 AM (15446) Creatinine Clearance 42 mL/min (Abnormal) Range: 88-128 Comments: The above range is based on 1.73 square meter average body surfacearea. Creatinine, Ur 24hr 812.3 {mg/24_hr} (Normal) Range: 800.0-1800.0 Creatinine, Urine 28.5 mg/dL (Normal) Range: 15.0-278.0 eGFR If Africn Am 45 mL/min/1.73 (Abnormal) eGFR If NonAfricn Am 39 mL/min/1.73 (Abnormal) Creatinine, Serum 1.33 mg/dL (Abnormal) Range: 0.57-1.00 62-Srg-823384:21 Total Protein,24 Hour Urine Comments: PATIENT WAS FASTINGPERFORMED BY: GreenElectric Power CorpDuane L. Waters Hospital6370 [facility] [id number] (86204) Prot,24hr calculated 1559.0 {mg/24_hr} (Abnormal) Range: 30.0-150.0 Protein,Total,Urine 54.7 mg/dL (Abnormal) Range: 0.0-15.0 :57 LIPID PANEL (76711) Comments: PATIENT WAS FASTINGPERFORMED BY: GreenElectric Power CorpDuane L. Waters Hospital6370 [facility] [id number] LDL/HDL Ratio 1.1 {ratio_units} (Normal) Range: 0.0-3.2 [...] Comments: PATIENT WAS FASTINGPERFORMED BY: [facility]6370 [facility] [id number] Information: [id number] (33283) Immature Grans (Abs) 0.0 {x10E3/uL} (Normal) Range: [...] PANEL, COMPREHENSIVE Comments: PATIENT WAS FASTINGPERFORMED BY: LabCoSt. Lawrence Rehabilitation CenterKshtux5355 [facility] [id number] (47476) ALT (SGPT) 10 [iU]/L (Normal) Range: 0-32 [...] 0 Comments: Result Units: mg/dL AdultPerformed at: [facility] [address] [id number] Director: Yousuf Bernardo PhD, Phone: [phone] C4 37 (Abnormal) Range: 9-36 0 [...] 75.6 mg/dL (Abnormal) CREU 49.3 mg/dL (Normal) 00-Jae-26084:21 CBC WITH MANUAL DIFF Comments: PATIENT WAS FASTINGPERFORMED BY: LabCoSt. Lawrence Rehabilitation CenterHtckzz2543 [facility] [id number] Information: [id number] (18113) Immature Grans (Abs) 0.0 {x10E3/uL} (Normal) Range: [...] 3.77-5.28 WBC 4.5 {x10E3/uL} (Normal) Range: 3.4-10.8 56-Nun-36865:21 METABOLIC PANEL, COMPREHENSIVE Comments: PATIENT WAS FASTINGPERFORMED BY: LabCoSt. Lawrence Rehabilitation CenterBykbsu0207 [facility] [id number] (61748) ALT (SGPT) 16 [iU]/L (Normal) Range: 0-32 [...] Glucose, Serum 132 mg/dL (Abnormal) Range: 65-99 63-Ull-101653:53 CREATININE CLEARANCE Comments: PATIENT NOT FASTINGPERFORMED BY: LabCoSt. Lawrence Rehabilitation CenterDvnjtz8634 [facility] [id number] Information: [id number] START 10/30/13@8AM F INISH 10/31/13@8AM 2650ML (46122) Creatinine Clearance 44 mL/min (Abnormal) Range: 88-128 Comments: The above range is based on 1.73 square meter average body surfacearea. Creatinine, Ur 24hr 877.2 {mg/24_hr} (Normal) Range: 800.0-1800.0 Creatinine, Urine 33.1 mg/dL (Normal) Range: 15.0-278.0 eGFR If Africn Am 44 mL/min/1.73 (Abnormal) eGFR If NonAfricn Am 38 mL/min/1.73 (Abnormal) Creatinine, Serum 1.37 mg/dL (Abnormal) Range: 0.57-1.00 47-Asz-050644:53 Total Protein,24 Hour Urine Comments: PATIENT NOT FASTINGPERFORMED BY: SunnyBump70 [facility] [id number] (74483) Prot,24hr calculated 3458.3 {mg/24_hr} (Abnormal) Range: 30.0-150.0 Protein,Total,Urine 130.5 mg/dL (Abnormal) Range: 0.0-15.0 00-Gob-459271:31 HgA1C , Office (34407) HgA1C , Office 6.4 % (Normal) Range: 4.6 - 7.1 09-Hpp-611159:27 Microscopic Examination Comments: PATIENT WAS FASTINGPERFORMED BY: [employer] [facility] [id number] Bacteria Few (Normal) Mucus Threads Present (Normal) Epithelial Cells (non renal) 0-10 {/hpf} (Normal) Range: 0 - 10 RBC 3-10 {/hpf} (Abnormal) Range: 0 - 2 WBC 6-10 {/hpf} (Abnormal) Range: 0 - 5 :32 LIPID PANEL (96935) Comments: PATIENT WAS FASTINGPERFORMED BY: SunnyBump70 [facility] [id number] LDL/HDL Ratio 1.0 {ratio_units} (Normal) Range: 0.0-3.2 [...] CREATININE RATIO Comments: PATIENT WAS FASTINGPERFORMED BY: [employer] [facility] [id number] (74928) AND (10000) Microalb/Creat Ratio 1998.9 {mg/g_creat} (Abnormal) Range: 0.0-30.0 Creatinine, Urine 73.4 mg/dL (Normal) Range: 15.0-278.0 Microalbumin, Urine 1467.2 ug/mL (Abnormal) Range: 0.0-17.0 :32 URINALYSIS, W/ MICRO (51515) Comments: PATIENT WAS FASTINGPERFORMED BY: Autogeneration MarketingSt. Lawrence Rehabilitation CenterBlytlq5479 [facility] [id number] Microscopic Examination See below: (Normal) Comments: Microscopic was indicated and was performed. Nitrite, Urine Negative (Normal) Urobilinogen,Semi-Qn 0.2 mg/dL (Normal) Range: 0.0-1.9 Bilirubin Negative (Normal) Occult Blood Trace (Abnormal) Ketones Negative (Normal) Glucose Negative (Normal) Protein 3+ (Abnormal) WBC Esterase Trace (Abnormal) Appearance Clear (Normal) Urine-Color Yellow (Normal) pH 6.5 (Normal) Range: 5.0-7.5 Specific [place] 1.015 (Normal) Range: 1.005-1.030 :32 CBC WITH MANUAL DIFF Comments: PATIENT WAS FASTINGPERFORMED BY: GreenElectric Power CorpDuane L. Waters Hospital6370 [facility] [id number] Information: [id number] (63626) Immature Grans (Abs) 0.0 {x10E3/uL} (Normal) Range: [...] 3.77-5.28 WBC 3.7 {x10E3/uL} (Normal) Range: 3.4-10.8 48-Sgo-31016:32 METABOLIC PANEL, COMPREHENSIVE Comments: PATIENT WAS FASTINGPERFORMED BY: LabCoSt. Lawrence Rehabilitation CenterXbntug7894 [facility] [id number] (18087) ALT (SGPT) 16 [iU]/L (Normal) Range: 0-32 [...] B-12 (CYANOCOBALAMIN) Comments: PATIENT WAS FASTINGPERFORMED BY: [employer].St. [facility] Rehabilitation CenterKquzaa5765 [facility] [id number] (26841) Vitamin B12 >1999 pg/mL (Abnormal) Range: 211-946 27-Aqk-022046:01 HgA1C , Office (03967) HgA1C , Office 6.4 % (Normal) Range: 4.6 - 7.1 :37 METABOLIC PANEL, COMPREHENSIVE Comments: PATIENT WAS FASTINGPERFORMED BY: [employer] Savvrj3317 [facility] [id number] (38911) ALT (SGPT) 12 [iU]/L (Normal) Range: 0-32 [...] (Abnormal) Range: 65-99 :37 Vitamin D Hydroxy (42992) Comments: PATIENT WAS FASTINGPERFORMED BY: [employer]6[address] [facility] [id number] Vitamin D, 25-Hydroxy 47.4 ng/mL (Normal) Range: 30.0-100.0 Comments: Vitamin D deficiency has been defined by the Noble ofKettering Health Washington Townshipcine and an Endocrine Society practice guideline as alevel of serum 25-OH vitamin D less than 20 ng/mL (1,2).The Endocrine Society went on to further define vitamin Dinsufficiency as a level between 21 and 29 ng/mL (2).1. IOM (Noble of Medicine). 2010. Dietary reference intakes for calcium and D. [place]: The National Academies Press.2. Mira MF, Rosette NC, Tommy SWAIN, et al. Evaluation, treatment, and prevention of vitamin D deficiency: an Endocrine Society clinical practice guideline. JCEM. 2010; 96(7):1911-30. :37 LIPID PANEL (45919) Comments: PATIENT WAS FASTINGPERFORMED BY: [employer] LabCampus Direct Rlijqh3774 [facility] [id number] LDL/HDL Ratio 1.2 {ratio_units} (Normal) Range: 0.0-3.2 [...] MANUAL DIFF Comments: PATIENT WAS FASTINGPERFORMED BY: EVE Autogeneration MarketingSt. Lawrence Rehabilitation CenterDdjrwq9009 [facility] [id number] Information: [id number] (51933) Immature Grans (Abs) 0.0 {x10E3/uL} (Normal) Range: [...] Qn, 24-Hr Comments: PATIENT NOT FASTINGPERFORMED BY: [employer] Rqnnjh0880 [facility] [id number] Information: ADD [id number] AND DRAW FEE 99 6660 VOLUME 2600 164LBS 5' '3 Urine Prot,24hr calculated 920.4 {mg/24_hr} Range: 30.0-150.0 (Abnormal) Protein,Total,Urine 35.4 mg/dL Range: 0.0-15.0 (Abnormal) : Written Authorization WAR (Normal) Comments: PATIENT NOT FASTINGPERFORMED BY: LabCoSt. Lawrence Rehabilitation CenterQcwgai7027 [facility] [id number] Comments: Written Authorization Received.Authorization received from Chiqui BRICEÑO LPN [id number] by Marleen Sharma :52 Metabolic Panel, Basic Comments: PATIENT NOT FASTINGPERFORMED BY: GreenElectric Power CorpResearch Psychiatric Center Judnwa0702 [facility] [id number] Information: ADD [id number] AND DRAW FEE 99 6660 VOLUME 2600 164LBS 5' '3 (32431) Calcium, Serum 9.7 mg/dL (Normal) Range: 8.6-10.2 [...] mg/dL (Abnormal) Range: 65-99 :52 CREATININE CLEARANCE (73167) Comments: PATIENT NOT FASTINGPERFORMED BY: GreenElectric Power CorpDuane L. Waters Hospital6370 [facility] [id number] Creatinine Clearance 46 mL/min (Abnormal) Range: 88-128 Comments: The above range is based on 1.73 square meter average body surfacearea. Creatinine, Ur 24hr 899.6 {mg/24_hr} (Normal) Range: 800.0-1800.0 Creatinine, Urine 34.6 mg/dL (Normal) Range: 15.0-278.0 :52 24 hour urine for Protein Comments: PATIENT NOT FASTINGPERFORMED BY: GreenE[employer] Power CorpDuane L. Waters Hospital6370 [facility] [id number] (88128) Microalb/Creat Ratio 695.4 {mg/g_creat} (Abnormal) Range: 0.0-30.0 Microalbumin, Urine 240.6 ug/mL (Abnormal) Range: 0.0-17.0 :13 HgA1C , Office (92161) HgA1C , Office 6.3 % (Normal) Range: 4.6 - 7.1 :01 Blood Glucose , Office (09492) Blood Glucose , Office 162 (Normal) 63-Exw-821517:02 Microscopic Examination Comments: PATIENT NOT FASTINGPERFORMED BY: LabDuane L. Waters Hospital6370 [facility] [id number] Bacteria Few (Normal) Mucus Threads Present (Normal) [...] Hebert M.D.October 19, 2012 at 2:42:14 PM [id number] Signed GP/GP If you are the referring physician and would like to consult [facility] theradiologist who provided this interpretation, please contact Yasmany Pond at [phone]. If this radiologist is unavailable, youwill be directed to another radiologist to assist. If y ou are a patient with a question regarding this report, pleasecontactyour referring physician directly. Professional Interpretation Provided By: [employer], Phone , These documents contain legally protected [...] destructionofthese documents. Dictated on 10/19/12 1442 by Singh MANN,JasbirrieleTranscribed on 10/19/12 1443 by ITS IMPORTSign by Singh MANN,Misael on 10/19/12 1444 Sign by: Misael Hebert MD 21-Ief-451312:59 TSH (89265) Comments: PATIENT WAS FASTINGPERFORMED BY: LiveExerciseCritical access hospital [id number] TSH 1.230 {uIU/mL} (Normal) Range: 0.450-4.500 06-Len-727188:59 LIPID PANEL (95551) Comments: PATIENT WAS FASTINGPERFORMED BY: SunnyBump70 [facility]PlanetSandh[facility] [id number] LDL/HDL Ratio 0.5 {ratio_units} (Normal) Range: 0.0-3.2 LDL Cholesterol Calc 47 mg/dL (Normal) Range: 0-99 Cholesterol, Total 149 mg/dL (Normal) Range: 100-199 HDL Cholesterol 91 mg/dL (Normal) Comments: According to ATP-III Guidelines, HDL-C >59 mg/dL is considered anegative risk factor for CHD. Triglycerides 57 mg/dL (Normal) Range: 0-149 VLDL Cholesterol Cesar 11 mg/dL (Normal) Range: 5-40 89-Qjj-704103:02 URINALYSIS, W/ MICRO Comments: PATIENT NOT FASTINGPERFORMED BY: [id number] [facility] [id number] Information: [id number]) Microscopic Examination See below: (Normal) Nitrite, Urine Negative (Normal) Bilirubin Negative (Normal) Urobilinogen,Semi-Qn 0.2 mg/dL (Normal) Range: 0.0-1.9 Occult Blood Negative (Normal) Ketones Negative (Normal) Glucose Negative (Normal) Protein 3+ (Abnormal) WBC Esterase Negative (Normal) Appearance Clear (Normal) Urine-Color Yellow (Normal) pH 5.5 (Normal) Range: 5.0-7.5 Specific [place] 1.015 (Normal) Range: 1.005-1.030 [id number] CBC WITH MANUAL DIFF Comments: PATIENT WAS FASTINGPERFORMED BY: [facility]CoSt. [facility] [id number] [facility] [id number] Information: [id number] ([id number]) Immature Grans (Abs) 0.0 {x10E3/uL} (Normal) Range: [...] 3.77-5.28 WBC 4.8 {x10E3/uL} (Normal) Range: 3.4-10.8 [id number] METABOLIC PANEL, COMPREHENSIVE Comments: PATIENT WAS FASTINGPERFORMED BY: LabCoSt. [facility] CenterEccvzp0403 [facility] [id number] (64059) ALT (SGPT) 14 [iU]/L (Normal) Range: 0-32 [...] Glucose, Serum 104 mg/dL (Abnormal) Range: 65-99 8-Zva-859963:37 HgA1C , Office (18632) HgA1C , Office 6.0 % (Normal) Range: 4.6 - 7.1 2-Vdx-519507:31 CRE CREAT 1.3 mg/dL (Abnormal) Range: 0.6-1.0 [...] Galan M.D.August 09, 2012 at 2:38:03 PM [id number] Signed PV/PV If you are the referring physician and would like to consult with theradiologist who provided this interpretation, please contact Donna Burnett M.D. at [phone]. If this radiologist is unavailable, youwillbe directed to another radiologist to assist. If you are a patient with a question regarding this report, pleasecontactyour referring physician evelyne cowan. Professional Interpretation Provided By: [employer], Phone , These documents contain legally protected [...] on 08/09/12 1440 by ITS IMPORTSign by Donna Martin MD on 08/09/12 1441 Sign by: Donna Martin MD 84-Iix-169895:31 CBC with manual diff Comments: PATIENT NOT FASTINGPERFORMED BY: [facility] Mjunhp1095 [facility] [id number] Information: [id number] (28144) Immature Grans (Abs) 0.0 {x10E3/uL} (Normal) Range: [...] 3.77-5.28 WBC 3.2 {x10E3/uL} (Abnormal) Range: 4.0-10.5 26-Ajn-892804:31 Metabolic Panel, Comprehensive Comments: PATIENT NOT FASTINGPERFORMED BY: [facility]CoSt[facility] CenterQcolva9388 [facility] [id number] (26764) ALT (SGPT) 19 [iU]/L (Normal) Range: 0-32 [...] mg/dL (Abnormal) Range: 65-99 :31 LIPID PANEL (54499) Comments: PATIENT WAS FASTINGPERFORMED BY: [facility] [id number] LDL/HDL Ratio 0.8 {ratio_units} (Normal) Range: 0.0-3.2 [...] MANUAL DIFF Comments: PATIENT WAS FASTINGPERFORMED BY: [employer] [facility] HospitalHole 19[facility] hospital [id number] Information: [id number] (82695) Immature Grans (Abs) 0.0 {x10E3/uL} (Normal) Range: [...] 3.77-5.28 WBC 3.2 {x10E3/uL} (Abnormal) Range: 4.0-10.5 04-Oct-20128:31 METABOLIC PANEL, COMPREHENSIVE Comments: PATIENT WAS FASTINGPERFORMED BY: [facility]6370 [facility] [id number] (22991) ALT (SGPT) 22 [iU]/L (Normal) Range: 0-32 [...] (Abnormal) Range: 65-99 :45 HgA1C , Office (17516) HgA1C , Office 6.1 % (Normal) Range: 4.6 - 7.1 34-Caw-051624:16 CRE CREAT 1.1 mg/dL (Abnormal) Range: 0.6-1.0 :00 BRAIN W/WO CONTRAST Radiology [...] Galan M.D.February 02, 2012 at 5:10:18 PM [id number] Signed PV/PV If you are the referring physician and w sarahild like to consult with theradiologist who provided this interpretation, please contact Donna Burnett M.D. at [phone]. If this radiologist is unavailable, youwillbe directed to another radiol ogist to assist. If you are a patient with a question regarding this report, pleasecontactyour referring physician directly. Professional Interpretation Provided By: [employer], Phone ,Fa x [phone] These documents contain legally protected and confidential [...] 02/02/121713 S ign by: Donna Martin MD 95-Two-324421:16 DEXA BONE DENSITY STUDY (HP) Radiology Report [...] Coronel M.D.January 20, 2012 at 2:43:46 PM [phone] Signed KERA/KERA If you ar e the [...] 01/20/12 1216 by David Coronel MDTranscribed on 01/20/12 1446 by ITS IMPORTSign by David Coronel MD on 01/20/12 1447 Sign by: David Coronel MD 81-Kkh-421822:15 BILAT SCRN DIGITAL & CAD Radiology Report [...] Coronel M.D.January 20, 2012 at 1:20:11 PM [phone] Signed KERA/KERA If you are the referring physician and would like to consult with theradiologist who provided this interpretation, please contact Yasmany Parnell at . If this radiologist is unavailable,youwill be directed to another radiologist to assist. If you are a patient with a question regarding this report, pleasecontactyour referring physician directly. Professional Interpretation Provided By: [employer], Phone , These documents contain legally protected [...] 01/20/12 1324 Sign by: David Coronel MD 2-Zee-124723:56 PELVIC (NON ) Radiology Report See Note [...] are seen of thecervix/vaginal ar ea. Signed:Radha Voung M.D.January 10, 2012 at 8:39:09 PM [phone] Signed JOHNNY/JOHNNY If you are the referring physician and would like to consult with theradiologist who provided this inte rpretation, please contact Radha Vuong M.D. at [phone]. If this radiologist is unavailable, you will bedirected to another radiologist to assist. If you are a patient with a question regarding this r eport, pleasecontactyour referring physician directly. Professional Interpretation Provided By: [employer], Phone , PROCEDURE: ULTRASOUND OF THE FEMALE [...] Vuong M.D.January 10, 2012 at 8:40:07 PM [phone] Signed JOHNNY/JOHNNY If you are the referring physician and would like to consult with theradiologist who provided this interpretation, please contact Radha Vuong M.D. at [phone]. If this radiologist is unavailable, you will bedirected to another radiologist to assist. If you are a patient with a question regarding this report, pleasecontactyour referring ysician directly. Professional Interpretation Provided By: YolandaP2P-Next, Phone , These documents contain legally protected [...] Dictated on 01/10/12 1309 by TATIANA VUONG MDThe Medical Center ribed on 01/11/12 1113 by ITS IMPORTSign by RADHA VUONG MD on 01/11/12 1114 Sign by: RADHA VUONG MD 98-Qwk-05513:35 MICROALBUMIN: CREATININE RATIO Comments: PATIENT WAS FASTINGPERFORMED BY: [employer]6370 [facility] [id number] (19001) AND (44025) Microalb/Creat Ratio 829.4 {mg/g_creat} (Abnormal) Range: 0.0-30.0 Microalbumin, Urine 437.1 ug/mL (Abnormal) Range: 0.0-17.0 Creatinine, Urine 52.7 mg/dL (Normal) Range: 15.0-278.0 :35 CBC WITH MANUAL DIFF Comments: PATIENT WAS FASTINGPERFORMED BY: [employer]6370 [facility] [id number] Information: [id number] (82764) Immature Grans (Abs) 0.0 {x10E3/uL} (Normal) Range: [...] 3.77-5.28 WBC 3.7 {x10E3/uL} (Abnormal) Range: 4.0-10.5 07-Fqn-56614:35 METABOLIC PANEL, COMPREHENSIVE Comments: PATIENT WAS FASTINGPERFORMED BY: LabCoSt. [facility] Rehabilitation CenterKvakft5998 [facility] [id number] (94243) ALT (SGPT) 15 [iU]/L (Normal) Range: 0-32 [...] mg/dL (Abnormal) Range: 65-99 :35 LIPID PANEL (93858) Comments: PATIENT WAS FASTINGPERFORMED BY: [facility]erciseCritical access hospital [id number] LDL/HDL Ratio 0.9 {ratio_units} (Normal) Range: 0.0-3.2 LDL Cholesterol Calc 72 mg/dL (Normal) Range: 0-99 HDL Cholesterol 83 mg/dL (Normal) Comments: According to ATP-III Guidelines, HDL-C >59 mg/dL is considered anegative risk factor for CHD. VLDL Cholesterol Cesar 18 mg/dL (Normal) Range: 5-40 Triglycerides 90 mg/dL (Normal) Range: 0-149 Cholesterol, Total 173 mg/dL (Normal) Range: 100-199 :15 HgA1C , Office (32756) HgA1C , Office 6.2 % (Normal) Range: 4.6 - 7.1 :30 CBC WITH MANUAL DIFF Comments: PATIENT WAS FASTINGPERFORMED BY: [employer] CenterTlhgxu7272 [facility] [id number] Information: [id number] (47610) Immature Grans (Abs) 0.0 {x10E3/uL} (Normal) Range: [...] 3.77-5.28 WBC 4.2 {x10E3/uL} (Normal) Range: 4.0-10.5 89-Bsz-15945:30 METABOLIC PANEL, COMPREHENSIVE Comments: PATIENT WAS FASTINGPERFORMED BY: LabCoSt. [facility] Rehabilitation CenterSiprkz2757 [facility] [id number] (27216) ALT (SGPT) 19 [iU]/L (Normal) Range: 0-40 [...] mg/dL (Abnormal) Range: 65-99 :30 LIPID PANEL (82775) Comments: PATIENT WAS FASTINGPERFORMED BY: LabCoSt. [facility] Rehabilitation CenterSzappc4644 [facility] [id number] LDL/HDL Ratio 0.9 {ratio_units} (Normal) Range: 0.0-3.2 [...] note reference interval change :48 Rapid Flu (99027 x 2) Influenza A Ag negative (Normal) [...] redmond M.D.November 05, 2011 at 3:25:08 PM [id number] Signed GP/GP If you are the referring physician and would like to consult with theradiologist who provided this interpretation, please contact Yasmany Pond at [phone]. If this radiologist is unavailable, youwill be directed to another radiologist to assist. If you are a patient with a question regarding this report, ple asecontactyour referring physician directly. Professional Interpretation Provided By: [employer], Phone , These documents contain legally protected [...] redmond M.D.November 05, 2011 at 3:25:08 PM [id number] Signed GP/GP If you are the referring physician and would like to consult with theradiologist who provided this interpretation, please contact Yasmany Pond at [phone]. If this radiologist is unavailable, youwill be directed to another radiologist to assist. If you are a patient with a question regarding this report, ple asecontactyour referring physician directly. Professional Interpretation Provided By: [employer], Phone , These documents contain legally protected [...] destructionofthese documents. Dictated on 11/05/11 0939 by Singh MANN,Jodyranscribed on 11/05/111550 by ITS IMPORTSign by Singh MANN,Misael on 11/05/111551 Sign by: Misael Hebert MD 05-Vsq-203837:20 METABOLIC PANEL, Comments: PATIENT WAS FASTINGPERFORMED BY: LabCoSt. [facility] Rehabilitation CenterMiavtt7707 [facility] [id number] Information: L33155,2ND ORDER NO DRAW F COMPREHENSIVE (80386) ALT (SGPT) 31 [iU]/L (Normal) Range: 0-40 [...] Creatinine Clearance Comments: PATIENT WAS FASTINGPERFORMED BY: Autogeneration MarketingSt. Lawrence Rehabilitation CenterXhxxpp4347 [facility] [id number] Information: 10/30@6AM 10/31@730AM Creatinine Clearance 58 mL/min [...] Qn, 24-Hr Comments: PATIENT WAS FASTINGPERFORMED BY: Autogeneration MarketingSt. Lawrence Rehabilitation CenterFqgpuw7758 [facility] [id number] Urine Prot,24hr calculated 1023.8 {mg/24_hr} (Abnormal) Range: 30.0-150.0 Protein,Total,Urine 52.5 mg/dL (Abnormal) Range: 0.0-15.0 :04 HgA1C , Office (73707) HgA1C , Office 6.1 % (Normal) Range: [...] regarding this repor t, please call our 90O1nvpziek line @ Dictated on 07/27/11 1040 by GAYE PEREZ MDscribed on 07/28/111224 by ITS IMPORTSign by GAYE PEREZ MD on 07/28/111224 Sign by: GAYE PEREZ MD :54 Vitamin D Hydroxy (14366) Comments: PATIENT WAS FASTINGPERFORMED BY: [employer]6370 [facility] TherapeuticsCritical access hospital [id number] Vitamin D, 25-Hydroxy 48.8 ng/mL (Normal) Range: 30.0-100.0 Comments: Vitamin D deficiency has been defined by the Noble ofMedicine and an Endocrine Society practice guideline as alevel of serum 25-OH vitamin D less than 20 ng/mL (1,2).The Endocrine Society went on to further define vitamin Dinsufficiency as a level between 21 and 29 ng/mL (2).1. IOM (Noble of Medicine). 2010. Dietary reference intakes for calcium and D. [place]: The National Academies Press.2. Mira MF, [place]ette [place], Tommy SWAIN, et al. Evaluation, treatment, and prevention of vitamin D deficiency: an Endocrine Society clinical practice guideline. JCEM. 2010; 96(7):1911-30. :54 LIPID PANEL (53548) Comments: PATIENT WAS FASTINGPERFORMED BY: [employer]6370 Hygeia TherapeuticsCritical access hospital [id number] LDL/HDL Ratio 1.0 {ratio_units} (Normal) Range: 0.0-3.2 [...] MANUAL DIFF Comments: PATIENT WAS FASTINGPERFORMED BY: [employer] LabRiskalyze6370 [facility] [id number] Information: ADD [id number] AND DRAW FEE 99 6393 (89731) Immature Grans (Abs) 0.0 {x10E3/uL} (Normal) Range: [...] 3.77-5.28 WBC 4.3 {x10E3/uL} (Normal) Range: 4.0-10.5 37-Kpg-95839:54 METABOLIC PANEL, COMPREHENSIVE Comments: PATIENT WAS FASTINGPERFORMED BY: LabCoSt. [facility] Rehabilitation CenterUmfoif4583 [facility] [id number] (75673) ALT (SGPT) 48 [iU]/L (Abnormal) Range: 0-40 [...] (Abnormal) Range: 65-99 :18 HgA1C , Office (98144) HgA1C , Office 6.1 % (Normal) Range: 4.6 - 7.1 :18 Blood Glucose , Office (62571) Blood Glucose , Office 103 (Normal) 42-Pxz-52049:00 ABDOMEN WITH AND W/O CONTRAST Radiology Report [...] radiologist regarding this report, please call our 60I8nzgjbpd line @ Dictated on 03/18/11 1715 by Keaton MANN,JennieieTranscribed on 03/22/11 1401 by ITS IMPORTSign by Jeanette Hill MD on 03/22/11 1402 Sign by: Jeanette Pugh MD 59-Mer-517750:29 SERUM CRE & GFR CREAT,SERUM 1.1 mg/dL (Abnormal) Range: 0.6-1.0 97-Lcw-78091:00 BRAIN W/WO CONTRAST Radiology Report See Note [...] seen in the right frontal white matter bottom sprayer ior to themasswithout interval change. The cortical [...] on 03/02/11 1729 by ITS IMPORTSign by Mario MANN,Donna on 03/02/11 173 Sign by: Donna Martin MD 58-Wzj-30096:00 UPPER EXT. JOINT ONLY(ROUTINE) Radiology Report See [...] ITS IMPORTSign by Ankur Duncan on 03/04/11 1035 Sign by: Ankur Duncan 27-Ety-486572:08 SHOULDER,MIN 2 VIEWS Radiology Report See Note [...] Dictate d on 02/17/11 1107 by Keaton MANNNadieTranscribed on 02/17/11 1205 by ITS IMPORTSign by [...] 01/29/11 0759 by Aakash Barbosa MDTranscribed on 01/29/11 171 by IT S IMPORTSign by Aakash Barbosa [...] 02/01/11 1021 Sign by: ALEJANDRO DRUMMOND DO 67-Vpy-833888:57 SINUS/FACIAL BONE Radiology Report See Note (Normal) [...] suggested. Dictated on 01/19/11 1334 by Singh MANN,JasbirrieleTranscribed on 01/19/11 1447 by ITS IMPORTSign by Misael Hebert MD on 01/19/11 1448 Sign by: Misael Hebert MD 96-Xwt-57156:00 BRAIN W/WO CONTRAST Radiology Report See Note [...] addition, there is a small region of bccavxsvaA6lcvxwaqnvr along the anterior margin of the mass, [...] on 01/19/2011 16:48:58 (ET). Dictated on 01/19/11 1513 by GAYE PLUMMER MD RTranscribed on 01/19/111649 by ITS IMPORTSign by GAYE PEREZ MD on 01/19/111650 Sign by: GAYE PEREZ MD 93-Bdh-86204:00 BRAIN/HEAD W/WO CONTRAST Radiology Report See Note [...] 01/19/11 1447 Sign by: Misael Hebert MD 36-Rhf-331390:08 BILAT SCRN DIGITAL & CAD Radiology Report [...] suspiciousa bnormality. Dictated on 01/18/11 1317 by Jose Hebert MDribed on 01/19/11 0848 by ITS IMPORTSign by Misael Hebert MD on 01/19/11 0849 Sign by: Misael Hebert MD 09-Jun-20119:20 MICROALBUMIN: CREATININE RATIO Comments: PATIENT NOT FASTINGPERFORMED BY: LabCoSt. [facility] Rehabilitation CenterPlcovz1738 [facility] [id number] (48206) AND (98943) Microalb/Creat Ratio 1028.4 {mg/g_creat} (Abnormal) Range: 0.0-30.0 Microalbumin, Urine 1341.0 ug/mL (Abnormal) Range: 0.0-17.0 Creatinine, Urine 130.4 mg/dL (Normal) Range: 15.0-278.0 :20 CBC WITH MANUAL DIFF (87405) Comments: PATIENT NOT FASTINGPERFORMED BY: LabCoSt. [facility] Rehabilitation CenterAsmckr8388 [facility] [id number] Immature Grans (Abs) 0.0 {x10E3/uL} (Normal) Range: [...] {x10E3/uL} (Normal) Range: 4.0-10.5 :20 LIPID PANEL (00781) Comments: PATIENT NOT FASTINGPERFORMED BY: [employer]6370 [facility] [id number] LDL/HDL Ratio 0.9 {ratio_units} (Normal) Range: 0.0-3.2 [...] PANEL, COMPREHENSIVE Comments: PATIENT NOT FASTINGPERFORMED BY: [employer]6370 [facility] [id number] (33227) ALT (SGPT) 28 [iU]/L (Normal) Range: 0-40 [...] (Abnormal) Range: 65-99 :39 HgA1C , Office (51633) HgA1C , Office 6.5 % (Normal) Range: 4.6 - 7.1 :39 Blood Glucose , Office (99379) Blood Glucose , Office 128 (Normal) :19 CBC With Differential/Platelet Comments: PATIENT WAS FASTINGPERFORMED BY: LabCo Jqhsmh7818 [facility] [id number] Immature Grans (Abs) 0.0 {x10E3/uL} (Normal) Range: [...] 3.80-5.10 WBC 5.6 {x10E3/uL} (Normal) Range: 4.0-10.5 0-Cjx-099673:19 Comp. Metabolic Panel (14) Comments: PATIENT WAS FASTINGPERFORMED BY: LabCoSt. [facility] Rehabilitation CenterQnbydc4163 [facility] [id number]; appt 01/11/11 ALT (SGPT) 18 [iU]/L (Normal) [...] Glucose, Serum 113 mg/dL (Abnormal) Range: 65-99 9-Fem-630656:19 Lipid Panel With LDL/HDL Comments: PATIENT WAS FASTINGPERFORMED BY: [employer]6370 [facility] [id number] Ratio LDL/HDL Ratio 1.0 {ratio_units} Range: 0.0-3.2 [...] 0.800 {uIU/mL} Comments: PATIENT WAS FASTINGPERFORMED BY: [employer] [facility] Dewwui8826 [facility] [id number] 2:19 (Normal) Range: 0.450-4.500 Vitamin D, 25-Hydroxy 44.0 ng/mL (Normal) Comments: PATIENT WAS FASTINGPERFORMED BY: [employer] [facility] Cavdkk7437 [facility] [id number] 2:19 Range: 32.0-100.0 Comments: Effective February 22, 2011 Vitamin D, 25-Hydroxy reference intervals will be changing to 30-100. .Recent studies consider the lower li sandra of 32.0 ng/mL to be athreshold for optimal health.Otf HAYES. J Nutr. 2004;135(2):317-22. 07-Dkx-126071:54 HgA1C , Office (57766) HgA1C , Office 6.6 % (Normal) Range: 4.6 - 7.1 :54 Blood Glucose , Office (43233) Blood Glucose , Office 134 (Normal) :40 Creatinine Clearance Comments: PERFORMED BY: [employer] Axduhk4066 [facility] [id number] Information: 10/07@7AM 10/08@3AM Creatinine Clearance 56 mL/min [...] Protein Total, Qn, 24-Hr Comments: PERFORMED BY: [employer] Pcyfab2641 [facility]byHiBeam Internet & VoiceCritical access hospital [id number] Urine Prot,24hr calculated 610.5 {mg/24_hr} (Abnormal) Range: 30.0-150.0 Protein,Total,Urine 40.7 mg/dL (Abnormal) Range: 0.0-15.0 :46 Vitamin D Hydroxy (88670) Comments: PATIENT WAS FASTINGPERFORMED BY: [employer] Ttlnyr7348 [facility] [id number] Vitamin D, 25-Hydroxy 36.5 ng/mL (Normal) Range: 32.0-100.0 Comments: Recent studies consider the lower limit of 32.0 ng/mL to be athreshold for optimal health.Otf HAYES. J Nutr. 2004;135(2):317-22. :46 METABOLIC PANEL, COMPREHENSIVE Comments: PATIENT WAS FASTINGPERFORMED BY: [employer] Xwialw6441 [facility] [id number] (26667) ALT (SGPT) 34 [iU]/L (Normal) Range: 0-40 [...] Glucose, Serum 116 mg/dL (Abnormal) Range: 65-99 4-Omn-289339:46 LIPID PANEL (06861) Comments: PATIENT WAS FASTINGPERFORMED BY: LabCoSt. [facility] Rehabilitation CenterCupzwg0007 [facility] [id number] LDL Cholesterol Calc 85 mg/dL (Normal) Range: 0-99 LDL/HDL Ratio 1.2 {ratio_units} (Normal) Range: 0.0-3.2 VLDL Cholesterol Cesar 28 mg/dL (Normal) Range: 5-40 HDL Cholesterol 69 mg/dL (Normal) Comments: According to ATP-III Guidelines, HDL-C >59 mg/dL is considered anegative risk factor for CHD. Cholesterol, Total 182 mg/dL (Normal) Range: 100-199 Triglycerides 141 mg/dL (Normal) Range: 0-149 5-Bfk-173052:46 CBC WITH MANUAL DIFF Comments: PATIENT WAS FASTINGPERFORMED BY: [facility] Lkgsem6990 [facility] [id number] Information: [id number]; appt 10/12/10 (29447) Immature Grans (Abs) 0.0 {x10E3/uL} (Normal) Range: [...] (Normal) Range: 4.0-10.5 :07 HgA1C , Office (82188) HgA1C , Office 6.6 % (Normal) Range: 4.6 - 7.1 :07 Blood Glucose , Office (02140) Blood Glucose , Office 114 (Normal) 28-Qae-713767:00 Creatinine Clearance Comments: PERFORMED BY: [employer] Frequency [facility] [id number] Information: 12/31@8AM 01/01@4AM Creatinine Clearance 48 mL/min [...] Creatinine, Serum 1.20 mg/dL (Abnormal) Range: 0.57-1.00 19-Oyl-006171:00 Protein Total, Qn, 24-Hr Comments: PERFORMED BY: Autogeneration MarketingSt. Lawrence Rehabilitation CenterOsioxc8625 [facility] [id number] Urine Prot,24hr calculated 1070.6 {mg/24_hr} (Abnormal) Range: 30.0-150.0 Protein,Total,Urine 79.3 mg/dL (Abnormal) Range: 0.0-15.0 25-Gye-669195:48 BILAT SCRN DIGITAL & CAD Radiology Report See Note (Normal) Comments: Exam Number: [id number] MAMMOGRAPHY - BILATERAL SCREENING INDICATION:Routine annual screening [...] of attaching a ResultCode to this exam.ADDENDUM: [id number] HPBI/MDS Reported By: MISAEL HEBERT 95-Xnz-415697:48 DEXA BONE DENSITY STUDY (HP) Radiology Report See Note (Normal) Comments: Exam Number: [id number] CLINICAL:This is a 69-year-old female patient with postmenopausal screening. EXAMINATION:DUAL ENERGY X-RAY ABSORPTIOMETRY / DEXA. TECHNIQUE:Bone Density Measurements (BMD) of lumb ar spine and bilateral hipswere obtained using a CSRware scanner.. COMPARISON:None. FINDINGS: Lumbar Spine (L1-L4): g/cm2 [...] Osteoporosis Foundation http://www.nof.org Reported By: MISAEL HEBERT 69-Jby-454526:29 HgA1C , Office (63517) HgA1C , Office 6.5 % (Normal) Range: 4.6 - 7.1 48-Bly-770107:29 Blood Glucose , Office (03705) Blood Glucose , Office 109 (Normal) 09-Sqf-50616:05 CBC With Differential/Platelet Comments: PATIENT WAS FASTINGPERFORMED BY: [facility] Vdeusd9616 [facility] [id number] Immature Grans (Abs) 0.0 {x10E3/uL} (Normal) Range: [...] 3.80-5.10 WBC 3.9 {x10E3/uL} (Abnormal) Range: 4.0-10.5 40-Zav-80846:05 Comp. Metabolic Panel (14) Comments: PATIENT WAS FASTINGPERFORMED BY: [facility] Wxjffy0414 [facility] [id number] ALT (SGPT) 20 [iU]/L (Normal) Range: 0-40 [...] With LDL/HDL Comments: PATIENT WAS FASTINGPERFORMED BY: SunnyBump70 [facility]Sand[facility] [id number] Ratio HDL Cholesterol 54 mg/dL (Normal) Comments: [...] ng/mL (Normal) Comments: PATIENT WAS FASTINGPERFORMED BY: [employer] [facility] Gsqeuz0802 [facility] [id number] :05 Range: 32.0-100.0 Comments: Recent studies consider the lower limit of 32.0 ng/mL to be athreshold for optimal health.Otf HAYES. J Nutr. 2004;135(2):317-22. :41 SPLEEN (HP) Radiology Report See Note (Normal) Comments: Exam Number: [id number] ULTRASOUND OF THE SPLEEN A goal directed [...] Protein, 0.5 mg/L (Normal) Comments: PERFORMED BY: [employer] Oqoppu2192 [facility] [id number] 10:54 Quant Range: 0.0-4.9 17-Jun-2009 Hemoglobin A1c 6.3 % (Abnormal) Comments: PERFORMED BY: [employer] Ebhzsz7093 [facility] [id number] 10:54 Range: 4.8-5.6 Comments: Increased risk for diabetes: 5.7 - 6.4Diabetes: >6.4Glycemic control for adults with diabetes: <7.0.Please note reference interval change 17-Jun-2009 Sedimentation 4 mm/h (Normal) Comments: PERFORMED BY: [employer] Frequency [facility] [id number] 10:54 Rate-Westergren Range: 0-30 17-Jun-2009 Vitamin B12 1372 pg/mL Comments: PERFORMED BY: Statzup70 [facility] [id number] 10:54 (Abnormal) Range: 211-911 Comments: Effective July 14, 2009, Vitamin B12 will bechanging to the [place] ECLIA methodology. Thereference interval will be changing to:211 - 946 pg/mL 17-Jun-2009 Vitamin D, 25-Hydroxy 37.7 ng/mL Comments: PERFORMED BY: [employer] Vueqft2676 [facility] [id number] 10:54 (Normal) Range: 32.0-100.0 Comments: Recent studies consider the lower limit of 32.0 ng/mL to be athreshold for optimal health.Otf HAYES. J Nutr. 2004;135(2):317-22. 35-Yck-918765:34 Vitamin D Hydroxy Comments: PATIENT NOT FASTINGPERFORMED BY: [employer] Trzryu5570 [facility] [id number] Information: W72402,2ND ORDER NO DRAW F EE (84144) Vitamin D, 25-Hydroxy 48.5 ng/mL (Normal) Range: 30.0-100.0 Comments: Vitamin D deficiency has been defined by the Noble ofMedicine and an Endocrine Society practice guideline as alevel of serum 25-OH vitamin D less than 20 ng/mL (1,2).The Endocrine Society went on to further define vitamin Dinsufficiency as a level between 21 and 29 ng/mL (2).1. IOM (Noble of Medicine). 2010. Dietary reference intakes for calcium and D. [place]: The National Academies Press.2. Mira MF, Rosette LOPEZ, Tommy SWAIN, et al. Evaluation, treatment, and prevention of vitamin D deficiency: an Endocrine Society clinical practice guideline. JCEM. 2010; 96(7):1911-30. :50 HgA1C , Office (61727) HgA1C , Office 6.7 % (Normal) Range: 4.6 - 7.1 :50 Blood Glucose , Office (20904) Blood Glucose , Office 117 (Normal) 09-Gnv-433280:12 CBC With Differential/Platelet Comments: PERFORMED BY: LabCoSt. [facility] Rehabilitation CenterUgtaef5759 [facility] [id number] Information: 06/10@6AM3/10@330AM Hematology Comments: Note: (Normal) Comments: [...] 3.80-5.10 WBC 3.6 {x10E3/uL} (Abnormal) Range: 4.0-10.5 04-Xyl-611399:12 Comp. Metabolic Panel (14) Comments: PERFORMED BY: [facility]6370 [facility] [id number] Alkaline Phosphatase, S 68 [iU]/L (Normal) Range: [...] Glucose, Serum 124 mg/dL (Abnormal) Range: 65-99 68-Oqv-709430:12 Creatinine Clearance Comments: PERFORMED BY: [facility] [id number] Creatinine Clearance 49 mL/min (Abnormal) Range: 88-128 Comments: The above range is based on 1.73 square meter average body surfacearea. Creatinine, Ur 24hr 800.0 {mg/24_hr} (Normal) Range: 800.0-1800.0 Creatinine, Urine 40.0 mg/dL (Normal) Range: 15.0-278.0 90-Cpl-470996:12 Lipid Panel With LDL/HDL Comments: PERFORMED BY: [facility] [id number] Ratio HDL Cholesterol 61 mg/dL (Normal) Comments: According to ATP-III Guidelines, HDL-C >59 mg/dL is considered anegative risk factor for CHD. LDL Cholesterol Calc 74 mg/dL (Normal) Range: 0-99 LDL/HDL Ratio 1.2 {ratio_units} (Normal) Range: 0.0-3.2 VLDL Cholesterol Cesar 17 mg/dL (Normal) Range: 5-40 Cholesterol, Total 152 mg/dL (Normal) Range: 100-199 Triglycerides 87 mg/dL (Normal) Range: 0-149 76-Rkg-581379:12 Protein Total, Qn, 24-Hr Comments: PERFORMED BY: [facility] [id number] Urine Prot,24hr calculated 1172.0 {mg/24_hr} Range: 30.0-150.0 (Abnormal) Protein,Total,Urine 58.6 mg/dL (Abnormal) Range: 0.0-15.0 TSH 1.280 {uIU/mL} Comments: PERFORMED BY: GreenE[employer] Power CorpCoSt. Lawrence Rehabilitation CenterTttnrx8422 [facility] [id number] 1:12 (Normal) Range: 0.450-4.500 :58 HgA1C , Office (80407) HgA1C , Office 6.0 % (Normal) Range: 4.6 - 7.1 :58 Blood Glucose , Office (53474) Blood Glucose , Office 113 (Normal) :03 CBC With Differential/Platelet Comments: PATIENT WAS FASTINGPERFORMED BY: Autogeneration MarketingSt. Lawrence Rehabilitation CenterSvulct3940 [facility] [id number] Baso (Absolute) 0.0 {x10E3/uL} (Normal) Range: 0.0-0.2 [...] 11.7-15.0 WBC 3.2 {x10E3/uL} (Abnormal) Range: 4.0-10.5 3-Kbf-292324:03 Comp. Metabolic Panel (14) Comments: PATIENT WAS FASTINGPERFORMED BY: LabCoSt. Lawrence Rehabilitation CenterEugqah2032 [facility] [id number] A/G Ratio 2.0 (Normal) Range: 1.1-2.5 Albumin, [...] Glucose, Serum 116 mg/dL (Abnormal) Range: 65-99 4-Jse-593773:03 Lipid Panel With LDL/HDL Comments: PATIENT WAS FASTINGPERFORMED BY: [employer]ump70 [facility]geia TherapeuticsCritical access hospital [id number] Ratio Cholesterol, Total 167 mg/dL (Normal) Range: [...] ng/mL (Normal) Comments: PATIENT WAS FASTINGPERFORMED BY: [employer]70 Hygeia TherapeuticsCritical access hospital [id number] :03 Range: 32.0-100.0 Comments: Recent studies consider the lower limit of 32.0 ng/mL to be athreshold for optimal health.Otf AHYES. J Nutr. 2004;135(2):317-22. 46-Eat-840274:32 Urinalysis, Office (54113) UA - BILIRUBIN Negative (Normal) UA - BLOOD Hemolyzed Trace (Normal) UA - GLUCOSE Negative (Normal) UA - KETONES Negative mg/dL (Normal) UA - LEUKOCYTE ESTERASE Negative (Normal) UA - NITRITE Negative (Normal) UA - PH 6.5 (Normal) UA - PROTEIN 300 mg/dL (Normal) UA - SPECIFIC GRAVITY 1.020 (Normal) URINE UROBILINGN JATINDER TIMED 2 mg/dL (Normal) 4-Nei-768908:19 URINE SETH CULTURE-JATINDER COL Comments: PATIENT NOT FASTINGClinical Information: SRC:UR ADD [id number] PERFORMED BY: [employer]70 [facility] [id number] COUNT (71140) Result 1 ECV (Normal) Comments: Escherichia coli, [...] report (Normal) Culture,Comprehensiv e 09-Jan-20098:17 Urinalysis, Office (41962) UA - BILIRUBIN Negative (Normal) UA - BLOOD Hemolyzed Large (Normal) UA - GLUCOSE Negative (Normal) UA - KETONES Negative mg/dL (Normal) UA - LEUKOCYTE ESTERASE Moderate (Normal) UA - NITRITE Negative (Normal) UA - PH 7.0 (Normal) UA - PROTEIN 300 mg/dL (Normal) UA - SPECIFIC GRAVITY 1.020 (Normal) URINE UROBILINGN JATINDER TIMED 2 mg/dL (Normal) 2-Hje-817320:05 Comp. Metabolic Panel (14) Comments: PATIENT WAS FASTINGPERFORMED BY: LabCoSt. Lawrence Rehabilitation CenterAssvww9808 [facility] [id number] A/G Ratio 1.7 (Normal) Range: 1.1-2.5 Albumin, [...] Panel (7) Comments: PATIENT WAS FASTINGPERFORMED BY: [employer] [facility] [id number] Bilirubin, Direct 0.12 mg/dL (Normal) Range: 0.00-0.40 :05 Lipid Panel With LDL/HDL Comments: PATIENT WAS FASTINGPERFORMED BY: [employer] [facility] [id number] Ratio Cholesterol, Total 170 mg/dL (Normal) Range: 100-199 HDL Cholesterol 63 mg/dL (Normal) Comments: According to ATP-III Guidelines, HDL-C >59 mg/dL is considered anegative risk factor for CHD. LDL Cholesterol Calc 91 mg/dL (Normal) Range: 0-99 LDL/HDL Ratio 1.4 {ratio_units} Range: 0.0-3.2 (Normal) Triglycerides 80 mg/dL (Normal) Range: 0-149 VLDL Cholesterol Cesar 16 mg/dL (Normal) Range: -40 Phosphorus, Serum 4.1 mg/dL (Normal) Comments: PATIENT WAS FASTINGPERFORMED BY: [employer] [facility] [id number] :05 Range: 2.5-4.5 PTH, Intact 19 pg/mL (Normal) Comments: PATIENT WAS FASTINGPERFORMED BY: [employer]6370 [facility] [id number] :05 Range: 15-65 Vitamin D, 25-Hydroxy 38.9 ng/mL (Normal) Comments: PATIENT WAS FASTINGPERFORMED BY: [facility]6370 [facility] [id number] :05 Range: 32.0-100.0 Comments: Recent studies consider the lower limit of 32.0 ng/mL to be athreshold for optimal health.Otf HAYES. J Nutr. 2004;135(2):317-22. :40 HgA1C , Office (84891) HgA1C , Office 6.0 % (Normal) Range: 4.6 - 7.1 :40 Blood Glucose , Office (48351) Blood Glucose , Office 109 (Normal) :42 CBC With Differential/Platelet Comments: PATIENT WAS FASTINGPERFORMED BY: [facility]6370 [facility] [id number] Baso (Absolute) 0.0 {x10E3/uL} (Normal) Range: 0.0-0.2 [...] 11.7-15.0 WBC 4.2 {x10E3/uL} (Normal) Range: 4.0-10.5 70-Udr-797456:42 Comp. Metabolic Panel (14) Comments: PATIENT WAS FASTINGPERFORMED BY: LabCoSt. Lawrence Rehabilitation CenterVbprxr1439 [facility] [id number] A/G Ratio 1.6 (Normal) Range: 1.1-2.5 Albumin, [...] Sodium, Serum 140 mmol/L (Normal) Range: 135-145 8-Zwh-910916:09 FECAL OCCULT HGB ASSAY, QUAL, 1-3 SIMULTANEOUS DETERMINATIONS (82896) FECAL OCCULT HGB ASSAY, QUAL, 1-3 SIMULTANEOU neg (Normal) :42 Microscopic Examination Comments: PATIENT WAS FASTINGPERFORMED BY: LiveExerciseCritical access hospital [id number] Bacteria None seen (Normal) Cast Type Hyaline casts (Normal) Casts Present {/lpf} (Abnormal) Epithelial Cells (non renal) 0-10 {/hpf} (Normal) Range: 0 - 10 Mucus Threads Present (Normal) RBC 0-3 {/hpf} (Normal) Range: 0 - 3 WBC 0-5 {/hpf} (Normal) Range: 0 - 5 :42 URINALYSIS W/O MICRO (65600) Comments: PATIENT WAS FASTINGPERFORMED BY: LiveExerciseCritical access hospital [id number] Appearance Clear (Normal) Bilirubin Negative (Normal) Glucose Negative (Normal) Ketones Negative (Normal) Microscopic Examination See below: (Normal) Nitrite, Urine Negative (Normal) Occult Blood Negative (Normal) pH 5.0 (Normal) Range: 5.0-7.5 Protein 1+ (Abnormal) Specific [place] 1.013 (Normal) Range: 1.005-1.030 Urine-Color Yellow (Normal) Urobilinogen,Semi-Qn 0.2 mg/dL (Normal) Range: 0.0-1.9 WBC Esterase 1+ (Abnormal) :42 MICROALBUMIN: CREATININE RATIO Comments: PATIENT WAS FASTINGPERFORMED BY: LiveExerciseCritical access hospital [id number] (91012) AND (30443) Creatinine, Urine 76.1 mg/dL (Normal) Range: 15.0-278.0 Microalb/Creat Ratio 292.1 {ug/mg_creat} (Abnormal) Range: 0.0-30.0 Microalbumin, Urine 222.3 ug/mL (Abnormal) Range: 0.0-17.0 :42 CBC WITH MANUAL DIFF (20714) Comments: PATIENT WAS FASTINGClinical Information: ADD DRAW FEE 695478 ADD J 06065 PERFORMED BY: EVE [employer] [facility] [id number] Baso (Absolute) 0.0 {x10E3/uL} (Normal) Range: 0.0-0.2 [...] 11.7-15.0 WBC 4.1 {x10E3/uL} (Normal) Range: 4.0-10.5 :42 METABOLIC PANEL, COMPREHENSIVE Comments: PATIENT WAS FASTINGPERFORMED BY: LabCoSt. Lawrence Rehabilitation CenterSaugmw3235 [facility] [id number] (60630) A/G Ratio 1.8 (Normal) Range: 1.1-2.5 Albumin, [...] Sodium, Serum 141 mmol/L (Normal) Range: 135-145 4-Kkz-346001:23 HgA1C , Office (45407) HgA1C , Office 6.0 % (Normal) Range: 4.6 - 7.1 3-Nbk-630135:23 Blood Glucose , Office (37795) Blood Glucose , Office 103 (Normal) 03-Uqw-163841:38 CBC WITH MANUAL DIFF (95292) Comments: PATIENT WAS FASTINGClinical Information: ADD DRAW FEE 544662 ADD J 42690 PERFORMED BY: EVE [employer] CorpCo Rlpyyk0507 [facility] [id number] Baso (Absolute) 0.0 {x10E3/uL} (Normal) Range: 0.0-0.2 [...] 11.7-15.0 WBC 4.0 {x10E3/uL} (Normal) Range: 4.0-10.5 77-Uov-753025:38 METABOLIC PANEL, COMPREHENSIVE Comments: PATIENT WAS FASTINGPERFORMED BY: GreenE[employer] Power CorpCoSt. Lawrence Rehabilitation CenterTgdvvr[address] [place] [address] [id number] (58849) A/G Ratio 1.8 (Normal) Range: 1.1-2.5 Albumin, [...] Sodium, Serum 142 mmol/L (Normal) Range: 135-145 54-Tom-660034:38 HEPATIC FUNCTION PANEL Comments: PATIENT WAS FASTINGPERFORMED BY: [employer] [facility] Zrklqz4380 [facility] [id number] (76246) Bilirubin, Direct 0.08 mg/dL (Normal) Range: 0.00-0.40 94-Ukv-203639:38 LIPID PANEL (55272) Comments: PATIENT WAS FASTINGPERFORMED BY: [employer] [facility] Bmuzax5980 [facility] [id number] Cholesterol, Total 200 mg/dL (Abnormal) Range: 100-199 [...] Cholesterol Cesar 18 mg/dL (Normal) Range: 5-40 :36 HgA1C , Office (91917) HgA1C , Office 6.1 % (Normal) Range: 4.6 - 7.1 :36 Blood Glucose , Office (54208) Blood Glucose , Office 98 (Normal) :33 CBC With Differential/Platelet Comments: PATIENT WAS FASTINGClinical Information: SRC:UR PERFORMED BY: [facility]6370 [facility] [id number] Baso (Absolute) 0.0 {x10E3/uL} (Normal) Range: 0.0-0.2 [...] 11.7-15.0 WBC 4.8 {x10E3/uL} (Normal) Range: 4.0-10.5 43-Qbo-752791:33 Comp. Metabolic Panel (14) Comments: PATIENT WAS FASTINGPERFORMED BY: LabCoSt. Lawrence Rehabilitation CenterKjqzgq2974 [facility] [id number] A/G Ratio 1.6 (Normal) Range: 1.1-2.5 Albumin, [...] Serum 92 mg/dL (Normal) Range: 65-99 If -Croatian 57 mL/min/1.73 Comments: Note: Persistent reduction for [...] Sodium, Serum 142 mmol/L (Normal) Range: 135-145 :33 Lipid Panel With LDL/HDL Comments: PATIENT WAS FASTINGPERFORMED BY: Autogeneration MarketingSt. Lawrence Rehabilitation CenterCvknml9972 [facility] [id number] Ratio Cholesterol, Total 174 mg/dL (Normal) Range: 100-199 HDL Cholesterol 67 mg/dL (Normal) Comments: According to ATP-III Guidelines, HDL-C >59 mg/dL is considered anegative risk factor for CHD. LDL Cholesterol Calc 85 mg/dL (Normal) Range: 0-99 LDL/HDL Ratio 1.3 {ratio_units} (Normal) Range: 0.0-3.2 Triglycerides 110 mg/dL (Normal) Range: 0-149 VLDL Cholesterol Cesar 22 mg/dL (Normal) Range: 5-40 :33 Urine Culture,Comprehensive Comments: PATIENT WAS FASTINGPERFORMED BY: Autogeneration MarketingSt. Lawrence Rehabilitation CenterWohxgc7198 [facility] [id number] Antimicrobial MIHEAD (Normal) Comments: S = Susceptible; [...] Enterococcus. (Normal) Urine Final report (Normal) Culture,Comprehensive 4-Znc-350190:10 HgA1C , Office (25459) HgA1C , Office 5.9 % (Normal) Range: [...] mL (Normal) URINE PROTEIN 20.0 mg/dL (Abnormal) 94-Zkx-362516:17 Urine Culture,Comprehensive Comments: Clinical Information: SRC:UR PERFORMED BY: [facility]6370 [facility] [id number] Result 1 CNSNSS (Normal) Comments: Coagulase negative Staphylococcus species, not Staphylococcussaprophyticus.600 Colonies/mLSusceptibility or resistance of staphylococci to oxacillin predictssusceptibility or resistance to (a) other be ou-shwowknsq-drnlibfrsxzhgjxoy such as cloxacillin and dicloxacillin, (b) combinationsof a penicillin and a beta-lactamase inhibitor, and(c) anti- staphylococcal cephalosporins. Routine testing of otherp enicillins, beta-lactam/beta-lactamase inhibitor combinations,cephems, and carbapenems is not advised by the CLSI Standards(O910-O24, 2005). S = Susceptible; I = Intermediate; R = Resistant * P = Positive; N = Negative MICS are expressed in micrograms per mL Antibiotic RSLT#1 RSLT#2 RSLT#3 RSLT#4Ciprofloxacin RGentami kristian SLevofloxacin RNitrofurantoin SOxacillin SPenicillin RRifampin STrimethoprim/Sulfa SVancomycin S Urine Final report Culture,Comprehensi (Normal) ve :53 Metabolic Panel, Basic (96762) Comments: PATIENT NOT FASTINGClinical Information: ADD DRAW FEE 205010 ADD J 31412 PERFORMED BY: [facility] Acvloc8690 [facility] [id number] BUN 39 mg/dL (Abnormal) Range: 5-26 BUN/Creatinine Ratio 33 (Abnormal) Range: 8-27 Calcium, Serum 9.8 mg/dL (Normal) Range: 8.5-10.6 Carbon Dioxide, Total 22 mmol/L (Normal) Range: 20-32 Chloride, Serum 103 mmol/L (Normal) Range: 97-108 Creatinine, Serum 1.20 mg/dL (Abnormal) Range: 0.57-1.00 Glom Filt Rate, Est 45 mL/min/1.73 Range: 60-128 (Abnormal) Glucose, Serum 101 mg/dL (Abnormal) Range: 65-99 If -Croatian 55 mL/min/1.73 Range: 60-128 (Abnormal) Comments: Note: Persistent reduction for 3 months or more in an eGFR<60 mL/min/1.73 m2 defines CKD. Patients with eGFR values>/=60 mL/min/1.73 m2 may also have CKD if evidence of persistentproteinuria is present. Additional information may be found atwww.kdoqi.org. Potassium, Serum 5.1 mmol/L (Normal) Range: 3.5-5.2 Sodium, Serum 139 mmol/L (Normal) Range: 135-145 :09 HgA1C , Office (49470) HgA1C , Office 6.1 % (Normal) Range: 4.6 - 7.1 :09 Blood Glucose , Office (64026) Blood Glucose , Office 163 (Normal) :37 SPINE,LUMBAR (ROUTINE) Radiology Report See Note (Normal) Comments: Exam Number: [id number] MRI LUMBAR SPINE CLINICAL STATEMENTLow back pain [...] onboth sides. Reported By: MODESTA COPE M.D. 34-Lan-041926:00 [facility] Radiology Report See Note (Normal) Comments: Exam Number: [id number] MAMMOGRAM, BILATERAL SCREENING DIGITAL AND CAD HISTORYRoutine screening. Full field digital images were obtained in mediolateral oblique andcraniocaudal projections. CAD images w ere reviewed. The current study is compared to the [facility]. A small metal marker is placed on [...] mammograms werealso examined with computer-aided detection software ([employer], [employer] Reported By: DONNA OJEDA M.D. :59 DEXA BONE DENSITY STUDY (HP) Radiology Report See Note (Normal) Comments: Exam Number: [id number] BONE DENSITOMETRY HISTORYPost menopausal. TECHNIQUE Bone densitometry [...] Report See Note (Normal) Comments: Exam Number: [id number] FIVE VIEW LUMBAR SPINE AP, lateral, both [...] By: MAIRA GARZA M.D. :19 Microalb/Creat Ratio, [facility]The [facility] Comments: PATIENT NOT FASTINGPERFORMED BY: LabCoSt. Lawrence Rehabilitation CenterZukzou2126 [facility] [id number] Creatinine, Urine 46.8 mg/dL (Normal) Microalb/Creat Ratio 712.8 {ug/mg_creat} (Abnormal) Range: 0.0-30.0 Microalbum.,U,Random 333.6 ug/mL (Abnormal) Range: 0.0-17.0 :13 Creatinine Clearance Comments: PATIENT NOT FASTINGClinical Information: HT-5'4'' WT-184 PERFORMED BY: [employer] Dvfsnj5063 [facility] [id number] Creatinine Clearance 40 mL/min (Abnormal) Range: 88-128 Comments: The above range is based on 1.73 square meter average body surfacearea. Creatinine, Serum 1.30 mg/dL (Normal) Range: 0.50-1.50 Creatinine, Ur 24hr 754.8 {mg/24_hr} Range: 800.0-1800.0 (Abnormal) Creatinine, Urine 44.4 mg/dL (Normal) Glom Filt Rate, Est 41 mL/min (Abnormal) Range: 60-128 If -Croatian 50 mL/min (Abnormal) Range: 60-128 Comments: Note: Persistent reduction for 3 months or more in an eGFR<60 mL/min/1.73 m2 defines CKD. Patients with eGFR values>/=60 mL/min/1.73 m2 may also have CKD if evidence of persistentproteinuria is present. .Additional information may be found at www.kdoqi.org. :13 Protein Total, Qn, 24-Hr Comments: PATIENT NOT FASTINGPERFORMED BY: [employer] Dhdyeu2951 [facility] [id number] Urine Protein,Total,Urine 49.0 mg/dL (Abnormal) Range: 0.0-15.0 Prt, 24hr calculated 833.0 {mg/24_hr} (Abnormal) Range: 30.0-150.0 51-Vrd-546881:00 CBCD,SMEAR DIFF CELLS COUNTED 100 (Normal) EOS [...] T PROT 6.6 g/dL (Normal) Range: 6.4-8.2 10-Evs-536113:00 D BILI 0.06 mg/dL (Normal) Range: 0.00-0.30 00-Dox-002407:00 LIPID CHOL 175 mg/dL (Normal) Comments: <200 [...] mg/dL VLDL 12 mg/dL (Normal) Range: 5-40 84-Avn-641614:00 TSH 0.84 {uIU/mL} (Normal) Range: 0.34-4.82 Plan of Care Name Dates Details Instructions Localized osteoarthritis of left knee : Euflexxa [...] of uncertain behavior of skin Planned Observations Vitamin D Hydroxy (78305)Indication: Vitamin D deficiency On: :25 Request URINALYSIS, W/ MICRO (14722)Indication: Chronic kidney disease, stage 3 On: :25 Request LIPID PANEL (23277)Indication: Mixed hyperlipidemia On: : Request CBC W/AUTO DIFF WBC (17468)Indication: Chronic kidney disease, stage 3 On: :25 Request METABOLIC PANEL, COMPREHENSIVE (66189)Indication: Chronic kidney disease, stage 3 On: :25 Request HGB A1C (34866)Indication: Diabetes mellitus type II, controlled On: 56-Nyt-591603:24 Request Parathyroid Hormone-related Peptide (PTH-rP) (88672)Indication: Vitamin D deficiency On: 3-Iry-180747:43 Request Comments: send results to Dr. Santana fax: [phone] VITAMIN D, 1, 25-DIHYDROXY (72101)Indication: Vitamin D deficiency On: 5-Rra-535850:42 Request Comments: send results to Dr. Santana fax: [phone] Clostridium difficile Toxin A+B, EIA (95353)Indication: Chronic diarrhea On: 5-Ryc-230174:36 Request Vitamin D Hydroxy (75986)Indication: Osteopenia On: 2-Vnl-499665:20 Request CBC W/AUTO DIFF WBC (68298)Indication: Hypertension, benign On: 4-Yvj-812786:16 Request CALCIFEDIOL (85039)Indication: Chronic kidney disease, stage 3 On: :04 Request Renal function Panel (77502)Indication: Chronic kidney disease, stage 3 On: :04 Request Magnesium (37497)Indication: Chronic kidney disease, stage 3 On: :04 Request MICROALBUMIN: CREATININE RATIO (21870) AND (86060)Indication: Chronic kidney disease, stage 3 On: :04 Request Parathyroid Hormone-related Peptide (PTH-rP) (18548)Indication: Chronic kidney disease, stage 3 On: :04 Request T4, FREE (THYROXINE) (65165)Indication: Cold feeling On: :31 Request TSH (43062)Indication: Cold feeling On: :31 Request PARATHORMONE (61552)Indication: Chronic kidney disease, stage 3 On: :18 Request Comments: copy to Dr. Santana [phone] CALCIFIDIOL (90548) VIT D 25Indication: Chronic kidney disease, stage 3 On: :16 Request Comments: copy to Dr. Santana [phone] MAGNESIUM (78004)Indication: Chronic kidney disease, stage 3 On: :15 Request Comments: copy to Dr. Santana [phone] PROTEIN/CREAT RATIO, URINE (99562)Indication: Chronic kidney disease, stage 3 On: :15 Request Comments: copy to Dr. Santana [phone] LIPID PANEL (01937)Indication: Mixed hyperlipidemia On: :21 Request CBC with auto diff (99763)Indication: Diabetes mellitus type II, controlled On: 71-Zmw-351177:20 Request METABOLIC PANEL, COMPREHENSIVE (37044)Indication: Diabetes mellitus type II, controlled On: 04-Spm-188608:20 Request HGB A1C (16925)Indication: Diabetes mellitus type II, controlled On: 66-Ldy-838202:10 Request Vitamin D Hydroxy (50977)Indication: Osteopenia On: :08 Request TSH (THYROID STIMULATING HORMONE) (56163)Indication: Depression On: 11-Skr-713485:06 Request LIPID PANEL (51373)Indication: Other and unspecified hyperlipidemia On: :06 Request CBC with auto diff (38250)Indication: Diabetes mellitus type II, controlled On: 95-Dpi-201775:06 Request METABOLIC PANEL, COMPREHENSIVE (62823)Indication: Diabetes mellitus type II, controlled On: 07-Tee-908166:06 Request CREATININE CLEARANCE (93454)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 On: 7-Eli-288852:38 Request Total Protein,24 Hour Urine (35674)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 On: 1-Ehz-920855:38 Request CBC W/AUTO DIFF WBC (41729)Indication: Diabetes mellitus type II, controlled On: 60-Cci-737896:11 Request HgA1C , Office (59218)Indication: Diabetes mellitus type II, controlled On: 18-Chm-720554:23 Request CULTURE, SPUTUM (56887)Indication: Cough On: 41-Bea-518923:47 Request HEPATIC FUNCTION PANEL (12051)Indication: Elevated LFTs On: 64-Cwb-87459:24 Request CREATININE CLEARANCE (04311)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 On: :33 Request 24 hour urine for Protein (71188)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 On: :33 Request CBC WITH MANUAL DIFF (04171)Indication: Diabetes mellitus type II, controlled On: :29 Request METABOLIC PANEL, COMPREHENSIVE (64284)Indication: Diabetes mellitus type II, controlled On: 15-Sdc-920072:29 Request LIPID PANEL (59478)Indication: Mixed hyperlipidemia On: :29 Request CREATININE CLEARANCE (63393)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 On: 6-Lcr-799652:45 Request 24 hour urine for Protein (66341)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 On: 4-Nws-262631:45 Request CREATININE CLEARANCE (10539)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 On: 81-Rqy-772471:57 Request 24 hour urine for Protein (72887)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 On: 10-Tgt-799832:57 Request METABOLIC PANEL, COMPREHENSIVE (95573)Indication: Hypertension, benign On: :32 Request LIPID PANEL (73207)Indication: Mixed hyperlipidemia On: :32 Request C-REACTIVE PROTEIN (13859)Indication: Fatigue On: :24 Request SED RATE ERYTHROCYTE (32501)Indication: Headache On: :24 Request VITAMIN B-12 (CYANOCOBALAMIN) (31558)Indication: Fatigue On: :24 Request LIPID PANEL (82025)Indication: Mixed hyperlipidemia On: :41 Request CBC WITH MANUAL DIFF (21003)Indication: Hypertension, benign On: :41 Request METABOLIC PANEL, COMPREHENSIVE (99429)Indication: Hypertension, benign On: :41 Request CREATININE CLEARANCE (79616)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 On: :34 Request 24 hour urine for Protein (40492)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 On: :34 Request LIPID PANEL (65585)Indication: Mixed hyperlipidemia On: 6-Tpp-117530:22 Request HEPATIC FUNCTION PANEL (18148)Indication: Mixed hyperlipidemia On: :22 Request Vitamin D Hydroxy (37193)Indication: Hypercalcemia On: 4-Evv-236750:22 Request PHOSPHORUS (83830)Indication: Hypercalcemia On: 2-Gwa-413808:22 Request PARATHORMONE (84904)Indication: Hypercalcemia On: :22 Request METABOLIC PANEL, COMPREHENSIVE (35131)Indication: Hypercalcemia On: 0-Cog-932644:22 Request CBC WITH MANUAL DIFF (05942)Indication: fsgs On: :58 Request LIPID PANEL (15000)Indication: Mixed hyperlipidemia On: 4-Paa-344783:58 Request METABOLIC PANEL, COMPREHENSIVE (43747)Indication: Hypertension, benign On: 2-Ges-304963:58 Request Blood Glucose , Office (35014)Indication: Diabetes mellitus type II, controlled On: 1-Wch-641236:10 Request TSH (35805)Indication: Diabetes mellitus type II, controlled On: 30-Xkq-358459:51 Request METABOLIC PANEL, COMPREHENSIVE (64163)Indication: Diabetes mellitus type II, controlled On: 25-Ewc-770779:51 Request CBC WITH MANUAL DIFF (30763)Indication: Diabetes mellitus type II, controlled On: 90-Zqi-161654:51 Request MICROALBUMIN: CREATININE RATIO (22031) AND (40385)Indication: Diabetes mellitus type II, controlled On: 80-Jzq-978069:51 Request HEPATIC FUNCTION PANEL (75431)Indication: Other and unspecified hyperlipidemia On: :51 Request LIPID PANEL (75270)Indication: Other and unspecified hyperlipidemia On: :51 Request HgA1C , Office (14875)Indication: Diabetes mellitus type II, controlled On: :37 Request Blood Glucose , Office (18827)Indication: Diabetes mellitus type II, controlled On: :37 Request Planned Encounters Medical; [facility] 3 Month FU - On: 22-Mar-2018 11:00 [facility] Fast DO, Chaparrita A Fast DO, Chaparrita A Planned Procedures DRAIN/INJECT MAJOR JOINT OR BURSA On: 07-Feb-2018 Intent ()By: Keri Singh MD Comments: lot no [id number] exp date 2017-12-26 DRAIN/INJECT MAJOR JOINT OR BURSA On: 31-Jan-2018 Intent ()By: Keri Singh MD Comments: Lot#[id number]:intra articular Site given:left knee Given By: Dr. Singh ABN signed DRAIN/INJECT MAJOR JOINT OR BURSA On: 24-Jan-2018 Intent ()By: Keri Singh MD Comments: Lot#[id number]: 3-42-39Majos:intra artciular Site given:left knee Given By: Dr. Singh ABN signed Euflexxa Echo CompleteBy: Fast DO, Chaparrita A On: 16-Dec-2017 Intent Fast DO, Chaparrita A Flu Vaccine (Quadrivalent) [id number]: On: 16-Dec-2017 Intent Fast DO, Chaparrita A Fast DO, Chaparrita A Comments: Lot: #[id number]: 10/01/18Site: L dltd, IMDose prefilled syringegiven by: Jamie reviewed and ABN signed Kenalog Injection, 10 mgm On: 03-Oct-2017 Intent (J3301)By: Keri Singh MD Comments: lot: [id number]: 11/20site/route: L knee Cartoid DopplerBy: Fast DO, Chaparrita A On: 12-Sep-2017 Intent Fast DO, Chaparrita A Comments: november DIGITAL TOMOSYNTHESIS OF On: 12-Sep-2017 Intent BREAST ([id number])By: Ambrocio WOLFF Chaparrita A Comments: due november 02 Ambrocio WOLFF Chaparrita A Kenalog Injection, 10 mgm On: 06-Jun-2017 Intent (J3301)By: Keri Singh MD Comments: bupivacacine 0.5% [id number] exp 09-20 kenalog 40 mg injected in. [id number] 07-21 MRI OF BRAIN WITH AND WITHOUT On: 06-Jun-2017 Intent CONTRAST ([id number])By: Case Albrecht DOa A Fast DO, Chaparrita A ELECTROCARDIOGRAM, COMPLETE (ECG) On: 06-Jun-2017 Intent ([id number])By: Ambrocio WOLFF Chaparrita A Fast Comments: ekg showed normal sinus rhythym, normal axis, no acute st/t wave changes DO, Chaparrita A INFUSION, NORMAL SALINE SOLUTION , On: 10-May-2017 Intent 1000 CC (Special Coverage Comments: 2 liters total Instructions Apply. See MCM: 2048) ([id number])By: Case Albrecht DOa A Fast DO, Chaparrita A INFUSION, NORMAL SALINE SOLUTION , On: 10-May-2017 Intent 1000 CC (Special Coverage Comments: lot:[id number]:IV left anticub dose:1000ml given by:eliazar Araya LPN Instructions Apply. See MCM: 2048) ([id number])By: Case Albrecht DOa A Ambrocio DO, Chaparrita A Radiology - Chest- PA and LatBy: On: 05-May-2017 Intent Keri Singh MD Aerosol Treatment ([id number])By: On: 05-May-2017 Intent Keri Singh MD Radiology - ChestBy: Francisco MANN, On: 05-May-2017 Intent Keri Alonzo Comments: call wet read DRAIN/INJECT MAJOR JOINT OR BURSA On: 28-Feb-2017 Intent ([id number])By: Keri Singh MD Comments: 1 cc Kenelog #[id number] Marcaine #[id number] Kenalog Injection, 10 mgm On: 28-Feb-2017 Intent ([id number])By: Keri Singh MD ELECTROCARDIOGRAM, COMPLETE (ECG) On: 10-Jan-2017 Intent ([id number])By: Chaparrita Albrecht DO Comments: ekg showed normal sinus rhythym, normal axis, no acute st/t wave changes Chaparrita WOLFF Flu Vaccine (Quadrivalent) [id number]: On: 27-Dec-2016 Intent SHONDA Andrade DRAIN/INJECT MAJOR JOINT OR BURSA On: 20-Aug-2016 Intent ()By: Keri Singh MD DRAIN/INJECT MAJOR JOINT OR BURSA On: 13-Aug-2016 Intent ()By: SHONDA Andrade Comments: lot: [id number]:intra articular dose:2ml given by:Dr. Francisco HUMPHREY signedER, QUALITY MANAGEMENT COORDINATOR injection #3 DOPPLER ULTRASOUND OF RIGHT CAROTID On: 10-Aug-2016 Intent ARTERY ([id number])By: Ambrocio WOLFF Chaparrita A Comments: end october Ambrocio DO Chaparrita A DEXA SCAN AXIAL SKELETON ([id number])By: On: 10-Aug-2016 Intent Case Albrecht DOa A Fast DO, Chaparrita A Comments: end of october SCREENING DIGITAL TOMOSYNTHESIS OF On: 10-Aug-2016 Intent BREAST ([id number])By: Case Albrecth DOa A Comments: end of october Fast , Chaparrita A DRAIN/INJECT MAJOR JOINT OR BURSA On: 06-Aug-2016 Intent ()By: Keri Singh MD DRAIN/INJECT INTERMED JOINT/BURSA On: 06-Aug-2016 Intent ()By: SHONDA Andrade Comments: lot:[id number]:left knee dose:2mlgiven by:Dr. Francisco HUMPHREY signedER, QUALITY MANAGEMENT COORDINATOR injection number 2 Venous Doppler - LeftBy: Ambrocio WOLFF, On: 03-Aug-2016 Intent Chaparrita A Ambrocio DO, Chaparrita A Comments: This is set up for August 05 at 11am- spoke with Rina in cv. DRAIN/INJECT INTERMED JOINT/BURSA On: 30-Jul-2016 Intent ()By: Keri Singh MD Comments: lot:[id number]:intra articular left knee dose: 2ml given by: Dr. Francisco HUMPHREY signedER, QUALITY MANAGEMENT COORDINATOR injection #1 Radiology - Knee - LeftBy: Fast DO, On: 26-May-2016 Intent Chaparrita A Fast DO, Chaparrita A Flu Vaccine (Quadrivalent) [id number]: On: 27-Jan-2016 Intent Fast DO, Chaparrita A Fast DO, Chaparrita A Comments: Lot #:[id number] date:10/01/16mount given:0.5mlRoute: IMSite given: left deltoidGiven by: CARMELINA Hook ADMINISTRATION OF INFLUENZA VIRUS On: 27-Jan-2016 Intent VACCINE ([id number])By: Fast DO, Chaparrita A Fast DO, Chaparrita A DOPPLER ULTRASOUND OF RIGHT CAROTID On: 22-Oct-2015 Intent ARTERY ([id number])By: Fast DO, Chaparrita A Fast DO, Chaparrita A MAMMOGRAM, SCREENING, BOTH BREAST On: 22-Oct-2015 Intent ([id number])By: Fast DO, Chaparrita A Fast DO, Chaparrita A Ultrasound - RenalBy: Fast DO, On: 14-Jul-2015 Intent Chaparrita A Fast DO, Chaparrita A Radiology - Knee - Left - Weight On: 11-Mar-2015 Intent BearingBy: Fast DO, Chaparrita A Fast DO, Chaparrita A Radiology - Knee - Right - Weight On: 11-Mar-2015 Intent BearingBy: Fast DO, Chaparrita A Fast DO, Chaparrita A Flu Vaccine (Quadrivalent) 25571Fk: On: 11-Feb-2015 Intent Fast DO, Chaparrita A Fast DO, Chaparrita A EKG (51386)By: Fast DO, Chaparrita A On: 05-Nov-2014 Intent Fast DO, Chaparrita A Comments: ekg showed normal sinus rhythym, normal axis, no acute st/t wave changes left axis DRAIN/INJECT SMALL JOINT OR BURSA On: 07-Oct-2014 Intent ()By: Keri Singh MD MAMMOGRAM, SCREENING, BOTH BREAST On: 02-Aug-2014 Intent ([id number])By: Fast DO, Chaparrita A Fast Comments: meera DO, Chaparrita A Cartoid DopplerBy: Fast DO, Chaparrita A On: 02-Aug-2014 Intent Fast DO, Chaparrita A DEXA SCAN AXIAL SKELETON ([id number])By: On: 09-Apr-2014 Intent Fast DO, Chaparrita A Fast DO, Chaparrita A Prevnar 13 (60535)By: Ambrocio DO, On: 30-Jan-2014 Intent Chaparrita A Fast DO, Chaparrita A Comments: Lot:[id number]:05/20Dose:0.5Route:imSite:l armGiven By:Jarred signed FLU VAC, SPLIT, >3 YEARS, INTRAMUSC On: 16-Jan-2014 Intent ([id number])By: Case Albrecht DOa A Ambrocio Comments: Lot #:[id number] date:12/2015Amount given:0.5mlRoute: IMSite given: left deltoidGiven by: CARMELINA Hook DO, Chaparrita A ADMINISTRATION OF INFLUENZA VIRUS On: 16-Jan-2014 Intent VACCINE (G0008)By: Ambrocio DO, Chaparrita A Fast DO, Chaparrita A EKG ([id number])By: Fast DO, Chaparrita A On: 17-Oct-2013 Intent Fast DO, Chaparrita A Comments: ekg showed normal sinus rhythym, left axis, no acute st/t wave changes Radiology - Chest- PA and LatBy: On: 17-Sep-2013 Intent Fast DO, Chaparrita A Fast DO, Chaparrita A Aerosol Treatment ([id number])By: Ambrocio On: 17-Sep-2013 Intent DO, Chaparrita A Fast DO, Chaparrita A MRI - BrainBy: Fast DO, Chaparrita A On: 22-Jul-2013 Intent Fast DO, Chaparrita A Cartoid DopplerBy: Fast DO, Chaparrita A On: 20-Jul-2013 Intent Fast DO, Chaparrita A MAMMOGRAM, SCREENING, BOTH BREASTS On: 20-Jul-2013 Intent ([id number])By: Fast DO, Chaparrita A Fast DO, Chaparrita A Eprescribed prescriptions On: 20-Jul-2013 Intent (G8553)By: Fast DO, Chaparrita A Fast DO, Chaparrita A Eprescribed prescriptions On: 02-Feb-2013 Intent (G8553)By: Марина Concepcion FLU VAC, SPLIT, >3 YEARS, INTRAMUSC On: 03-Jan-2013 Intent ([id number])By: Марина Concepcion Comments: Lot #:[id number] date:mount given:0.5mlRoute: IMSite given: L dltdVIS and ABN signedGiven by: CARMELINA Hook ADMINISTRATION OF INFLUENZA VIRUS On: 03-Jan-2013 Intent VACCINE (G0008)By: Марина Concepcion CT - Abdomen & Pelvis (IV Contrast On: 17-Oct-2012 Intent Needed)By: Chaparrita Albrecht DO A Ambrocio Comments: patient will be calling to set up DO, Chaparrita A Eprescribed prescriptions On: 10-Oct-2012 Intent (G8553)By: Марина Concepcion Ear Irrigation ([id number])By: Rome, On: 13-Jun-2012 Intent Ivy Comments: Ear Irrigation performed on: right earAmount/color removed cerumen: light brown, small amount removedOUtcome:Pt toleratedUsed wax curettes Wax Currettes (35601)By: Rome, On: 13-Jun-2012 Intent Ivy PNEUM VAC ADLT/IMUMNOSPR, SBC/INTRM On: 13-Jun-2012 Intent ([id number])By: Chaparrita Albrecht DO Comments: Lot:[id number]:09/09/13Dose:0.5mLRoute:IMSite:L armGiven By:BHUMI signed DO, Chaparrita A EKG (83229)By: Case Albrecht DOa A On: 13-Jun-2012 Intent Ambrocio DO Chaparrita A Comments: ekg showed normal sinus rhythym, normal axis, no acute st/t wave changes MRI - BrainBy: Ambrocio WOLFF, Chaparrita A On: 13-Jun-2012 Intent Ambrocio WOLFF Chaparrita A Comments: july ADMINISTRATION OF PNEUMOCOCCAL On: 13-Jun-2012 Intent VACCINE (G0009)By: Ambrocio WOLFF Chaparrita A Fast DO, Chaparrita A Eprescribed prescriptions On: 13-Jun-2012 Intent (G8553)By: Марина Concepcion MAMMOGRAM, SCREENING, BOTH BREASTS On: 28-Dec-2011 Intent ([id number])By: Ambrocio WOLFF Chaparrita A Ambrocio DO, Chaparrita A DXA, BONE DENSITY, AXIAL SKELETON On: 28-Dec-2011 Intent ([id number])By: Ambrocio WOLFF Chaparrita A Fast DO, Chaparrita A MRI - BrainBy: Ambrocio DO Chaparrita A On: 28-Dec-2011 Intent Ambrocio DO Chaparrita A Comments: end of jan Cartoid DopplerBy: Fast DO, Chaparrita A On: 28-Dec-2011 Intent Fast DO, Chaparrita A Comments: jan Ultrasound - PelvisBy: Fast DO, On: 28-Dec-2011 Intent Chaparrita A Fast DO, Chaparrita A FLU VAC, SPLIT, >3 YEARS, INTRAMUSC On: 28-Dec-2011 Intent ([id number])By: Марина Concepcion Comments: Lot #:[id number] date:mount given:0.5mlRoute: IMSite given: left deltoidGiven by: CARMELINA Hook ADMINISTRATION OF INFLUENZA VIRUS On: 28-Dec-2011 Intent VACCINE (G0008)By: Марина Concepcion Aerosol Treatment ([id number])By: Ciesa On: 30-Nov-[address] - Abdomen & PelvisBy: Fast DO, On: 21-Sep-2011 Intent Chaparrita A Fast DO, Chaparrita A Comments: with special cuts through the kidney- october EKG ([id number])By: Марина Concepcion On: 15-Jun-2011 Intent Comments: ekg [...] Brain/Head (IV Contrast On: 19-Jan-2011 Intent Needed)By: Chaparrita Albrecht DO A Ambrocio Comments: Call results to Dr. Albrecht @ [phone] as soon as resulted please. DO, Chaparrita A Eprescribed prescriptions On: 11-Jan-2011 Intent (G8553)By: Fast DO, Chaparrita A Fast DO, Chaparrita A MAMMOGRAM, SCREENING, BOTH BREASTS On: 11-Jan-2011 Intent ([id number])By: Ambrocio DO, Chaparrita A Fast DO, Chaparrita A CT - Sinuses CompleteBy: Fast DO, On: 11-Jan-2011 Intent Chaparrita A Fast DO, Chaparrita A Cartoid DopplerBy: Fast DO, Chaparrita A On: 11-Jan-2011 Intent Fast DO, Chaparrita A ADMINISTRATION OF INFLUENZA VIRUS On: 11-Jan-2011 Intent VACCINE (G0008)By: Марина Concepcion FLU VAC, SPLIT, >3 YEARS, INTRAMUSC On: 11-Jan-2011 Intent ([id number])By: Марина Concepcion Eprescribed prescriptions On: 12-Oct-2010 Intent (G8553)By: Ambrocio WOLFF, Chaparrita A Fast DO, Chaparrita A Renal DopplerBy: Fast DO, Chaparrita A On: 12-Oct-2010 Intent Fast DO, Chaparrita A Cartoid DopplerBy: Fast DO, Chaparrita A On: 12-Oct-2010 Intent Fast DO, Chaparrita A Comments: sept TDAP VACCINE >7 IM ([id number])By: On: 13-May-2010 Intent Helena Tineo LPN Comments: Lot #[id number]-3/25/13Site-left deltoidgiven by:[facility] EKG ([id number])By: Марина Concepcion On: 13-May-2010 Intent Comments: ekg showed normal sinus rhythym, normal axis, no acute st/t wave changes Aerosol Treatment ([id number])By: Charlene On: 22-Dec-2009 Intent Johanna SANZ Cartoid DopplerBy: Fast DO, Chaparrita A On: 01-Dec-2009 Intent Fast DO, Chaparrita A MAMMOGRAM, SCREENING, BOTH BREASTS On: 01-Dec-2009 Intent ([id number])By: Fast DO, Chaparrita A Fast DO, Chaparrita A DXA, BONE DENSITY, AXIAL SKELETON On: 01-Dec-2009 Intent ([id number])By: Fast DO, Chaparrita A Fast DO, Chaparrita A Ultrasound - SpleenBy: Fast DO, On: 17-Jun-2009 Intent Chaparrita A Fast DO, Chaparrita A EKG ([id number])By: Марина Concepcion On: 10-Mar-2009 Intent Comments: ekg showed normal sinus rhythym, normal axis, no acute st/t wave changes FLU VAC, SPLIT, >3 YEARS, INTRAMUSC On: 09-Jan-2009 Intent ([id number])By: Stacy Jorge Comments: Lot #[id number]/[id number]-left deltoidDose0.5mlgiven by Marycarmen Jorge LPN ADMINISTRATION OF INFLUENZA VIRUS On: 09-Jan-2009 Intent VACCINE (G0008)By: Stacy Jorge MAMMOGRAM, SCREENING, BOTH BREASTS On: 04-Dec-2008 Intent ([id number])By: Fast DO, Chaparrita A Fast DO, Chaparrita A MAMMOGRAM, SCREENING, BOTH BREASTS On: 03-Sep-2008 Intent ([id number])By: Fast DO, Chaparrita A Fast DO, Chaparrita A FLU VAC, SPLIT, >3 YEARS, INTRAMUSC On: 16-Jan-2008 Intent ([id number])By: Janet Scherer RN Comments: Lot #: [id number] date: 09/10Amount given: 0.5 mlRoute: IMSite given: Left deltoidGiven by: Olivia Bell LPN ADMINISTRATION OF INFLUENZA VIRUS On: 16-Jan-2008 Intent VACCINE (G0008)By: Janet Scherer RN EKG ([id number])By: Fast DO, Chaparrita A On: 29-Aug-2007 Intent Fast DO, Chaparrita A Comments: done km ADMINISTRATION OF PNEUMOCOCCAL On: 29-Aug-2007 Intent VACCINE (G0009)By: Fast DO, Chaparrita A Fast DO, Chaparrita A PNEUM VAC ADLT/IMUMNOSPR, SBC/INTRM On: 29-Aug-2007 Intent ([id number])By: Fast DO, Chaparrita A Fast Comments: 0.5cc given im lt arm [id number] 02-13-08 DO, Chaparrita A DXA, BONE DENSITY, AXIAL SKELETON On: 29-Aug-2007 Intent ([id number])By: Fast DO, Chaparrita A Fast DO, Chaparrita A MAMMOGRAM, SCREENING, BOTH BREASTS On: 29-Aug-2007 Intent ([id number])By: Fast DO, Chaparrita A Fast DO, Chaparrita [...] SPECIFIED, 10 MG Ordered: 06-Jun-2017 Pending Keri iSngh MD INJECTION, TRIAMCINOLONE ACETONIDE, NOT OTHERWISE SPECIFIED, 10 MG Ordered: 03-Oct-2017 Pending Keri Singh MD Instructions Name Dates Details Osteoarthritis of left knee, unspecified osteoarthritis type [...] : Patient Instructions Indication: Hypertension, benign Encounters Office Visit On: 07-Feb-2018 8:05 Encounter Diagnosis: [...] and supplemental vitamins. The medical issues the patien t is following up for include blood sugar issues, cardiac issues, depression (anxiety ), high blood pressure, high cholesterol, kidney problems, osteoporosis/osteopenia and other (DDD ). Note for Martinez mason up for chronic medical issues: she has been working with [employer] and trying to work on that- she got rid of respiratory infection but was sick for weeks and was on pred so her sugar up and chol up a bit- trying to add protein shakes drink more water- she is starting back at [facility]- diarrhea resolved- we did talk about going [...] that she had episode where [facility] and she couldnt remember where she was- [...] are all in low 100s-130- going to [employer] for a month next monthEncounter Diagnosis: Nonsmoker, [...] Eddie and bp is good she joined [employer] sugar up bit doi ng ice cream-the bone density reviewed little thinner she not exercising routienly until just recent at [employer] and sees kidney doc next week and [...] is sleeping well. Pa End: 10-Aug-2016 22:08 laura has been compliant with instructions. Current [...] maribel jesusrisheri in hospice - going to [facility] end of month- too much to care [...] Patient sleeps 8 hours per night. [facility]. The medical issues the patient is following up for include All identified problems below, blood sugar issues, cardiac issues, depression (anxiety), gastric reflux, high blood pressure, high cho lesterol and osteoporosis/osteopenia. Note for Follow up for chronic medical issues: Pt states the Ananya is working wonderful. her mood great feels [...] visual acuity (yearly). Note for Physical exam: [facility] Wellness Physical- Talk about trying Myrbetriq., [ADDITIONAL REASON] Follow up, Laboratory Test Results - Date: (09/2015- [facility] labs). , [ADDITIONAL REASON] Itching - Symptoms [...] Meningioma (Renamed from 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, 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, BRAIN/COMMUNITY OUTREACH DIRECTOR NEC (794.09)) [facility] Office Visit [...] Meningioma (Renamed from 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, 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, BRAIN/COMMUNITY OUTREACH DIRECTOR NEC (794.09)), Diabetes, Type II, controlled (250.00), [...] Meningioma (Renamed from 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, 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, BRAIN/COMMUNITY OUTREACH DIRECTOR NEC (794.09)), Colon Polyp [facility] [...] Meningioma (Renamed from 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, 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, BRAIN/COMMUNITY OUTREACH DIRECTOR NEC (794.09)), OCCLUSION AND STENOSIS OF CAROTID [...] Meningioma (Renamed from 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, 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, BRAIN/COMMUNITY OUTREACH DIRECTOR NEC (794.09)), Chronic glomerulonephritis with lesion of [...] Meningioma (Renamed from 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, 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, BRAIN/COMMUNITY OUTREACH DIRECTOR NEC (794.09)), Other and unspecified hyperlipidemia (272.4), [...] Meningioma (Renamed from 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, 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, BRAIN/COMMUNITY OUTREACH DIRECTOR NEC (794.09)) [facility] Office Visit [...] for chronic medical issues: she feels lik e vibryd has been uplifting and not depressed- went [...] Meningioma (Renamed from 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, 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, BRAIN/COMMUNITY OUTREACH DIRECTOR NEC (794.09)), Gerd (530.81), Hyperlipidemia, Unspecified (272.4), [...] Meningioma (Renamed from 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, 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, BRAIN/COMMUNITY OUTREACH DIRECTOR NEC (794.09)), Hypertension,benign(401.1), OCCLUSION AND STENOSIS OF [...] Meningioma (Renamed from 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, 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, BRAIN/COMMUNITY OUTREACH DIRECTOR NEC (794.09)), Diabetes, Type II, controlled (250.00), [...] Meningioma (Renamed from 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, 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, BRAIN/COMMUNITY OUTREACH DIRECTOR NEC (794.09)), Hypertension,benign(401.1), Osteopenia (733.90), Depression (311.), [...] weight down 23 pounds- and trying joined [employer]- she feels well - she increased celexa [...] Meningioma (Renamed from 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, 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, BRAIN/COMMUNITY OUTREACH DIRECTOR NEC (794.09)), Chronic glomerulonephritis with lesion of [...] Meningioma (Renamed from 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, 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, BRAIN/COMMUNITY OUTREACH DIRECTOR NEC (794.09)) End: 26-Jan-2011 16:53 [facility] Office Visit On: 19-Jan-2011 14:30 Encounter Diagnosis: brain tumor End: 21-Sep-2011 8:09 [facility] Phone Encounter On: 19-Jan-2011 13:41 Encounter Diagnosis: 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, 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, BRAIN/COMMUNITY OUTREACH DIRECTOR NEC (794.09) End: 19-Jan-2011 13:44 [facility] [...] another 5 pounds and she really feels byetta helps alot-- little nausea- but tolerable-- her [...] (V04.81), Degenerative Disc Disease - Lumbar (722.52), [facility] Office Visit On: 06-Dec-2007 [...] Disease - Lumbar (722.52), Osteopenia (733.90), Hypertension,benign(401.1), [facility] Historical Summary On: 30-Aug-2007 [...] 1.1 and she would like to s ee Laith Santana-- she has white coat sx- mood is good on lexapro Encounter Diagnosis: Hypertension,benign(401.1), Diabetes, Type II, controlled (250.00), arthritis,unspecified (716.90), Other and unspecified hyperlipidemia (272.4), fsgs, LOW BACK PAIN WITH RADICULOPATHY (724.4) [facility] Payers MedicareAARP/[facility]; a guarantor
--- OUTSIDE RECORDS SUMMARY | 2018-06-25 21:32 | XMS RPT_ITS | Continuity of Care Document ---
:1940 Author Organization [facility] Address [address] [place] [address] Phone Care Team Providers Name Role Phone [...] Knee pain, unspecified laterality (719.46) Comments: Valorie:lot: [id number]: 09/20site/route: L knee Status: Active Leg pain, [...] days Quantity: 1 {Box} Refills: 3 Ordered:18-Sep-2013 DO, Chaparrita AFast DO, Chaparrita A Start : 18-Sep-2013 Active Benazepril HCl 40 MG Oral Tablet 1 (one) Tablet bid for 0 days Quantity: 90 {Tablet} Refills: 3 Ordered:28-Jun-2017 Fast DO, Chaparrita AFast DO, Chaparrita A Start : 28-Jun-2017 Active Comments:Dr. Angelo disla Cheratussin AC 100-10 MG/5ML Oral Syrup 1 (one) Milliliter 1-2 tsp q 8hrs prn for 0 days Quantity: 120 {Milliliter} Refills: 0 Ordered:11-Apr-2018 DO, Chaparrita AFast DO, Chaparrita A Start : 11-Apr-2018 Active Coreg 25 MG Oral Tablet 1/2 Tablet bid for 0 days Quantity: 90 {Tablet} Refills: 3 Ordered:17-Nov-2017 DO, Chaparrita AFast DO, Chaparrita A Start : 17-Nov-2017 Active FreeStyle Lite Test In Vitro Strip 1 (one) Strip bid for 0 days Quantity: 100 {Strip} Refills: 5 Ordered:21-Apr-2018 DO, Chaparrita AFast DO, Chaparrita A Start : 21-Apr-2018 Active Comments:Dx:E11.9patient is NOT insulin dependant Hydrocodone-Acetaminophen 5-325 MG Oral Tablet 1 to 2 Tablet q 6hrs, prn for 0 days Quantity: 60 {Tablet} Refills: 0 Ordered:16-Dec-2017 DO, Chaparrita AFast DO, Chaparrita A Start : 16-Dec-2017 Active Myrbetriq 50 MG Oral Tablet Extended Release 24 Hour 1/2 -1 Tablet ER 24HR qhs for 0 days Quantity: 14 {Tablet} Refills: 0 Ordered:06-Jun-2017 DO, Chaparrita AFast DO, Chaparrita A Start [...] days Quantity: 90 {Tablet} Refills: 3 Ordered:14-Apr-2018 Fast DO, Chaparrita AFast DO, Chaparrita A Start : 14-Apr-2018 Active Trulicity 1.5 MG/0.5ML Subcutaneous Solution Pen-injector 1 (one) Milligram q week for 0 days Quantity: 3 {Milligram} Refills: 0 Ordered:22-Mar-2018 Fast DO, Chaparrita AFast DO, Chaparrita A Start : 22-Mar-2018 Active Comments:[id number] 09/20 Victoza 18 MG/3ML Subcutaneous Solution Pen-injector [...] days Quantity: 60 {Capsule} Refills: 0 Ordered:22-Mar-2018 Fast DO, Chaparrita AFast DO, Chaparrita A Start : 22-Mar-2018 Active Aricept 5 MG Oral Tablet 1 (one) Tablet qd in evening for 0 days Quantity: 30 {Tablet} Refills: 3 Ordered:16-Dec-2017 Inna Reynoso Start : 28-Sep-2017 End : 16-Dec-2017 Inactive Comments:may use generic Ativan 0.5 MG Oral Tablet 1 Tablet bid/prn for 30 days Quantity: 60 {Tablet} Refills: 0 Ordered:25-Oct-2017 Fast DO, Chaparrita AFast DO, Chaparrita A [...] Quantity: 28 {Tablet_ER_24HR} Refills: 0 Ordered:16-Feb-2010 Charlene SANZJohanna Start : 01-Jan-2010 End : 15-Jan-2010 Inactive [...] Quantity: 28 {Capsule} Refills: 0 Ordered:12-Oct-2010 Ambrocio DO, Chaparrita AFast DO, Chaparrita A Start : 12-Oct-2010 End : 26-Oct-2010 Inactive DULoxetine HCl 30 MG Oral Capsule Delayed Release Particles 1 (one) Capsule DR Part qday for 90 days Quantity: 90 {Capsule} Refills: 3 Ordered:04-May-2016 SHONDA Andrade Start : 27-Jan-2016 End : 04-May-2016 Inactive Dymista 137-50 MCG/ACT Nasal Suspension 1 (one) Suspension 1 spray daily for 0 days Quantity: 1 {[place]} Refills: 0 Ordered:04-May-2016 SHONDA Andrade Start : 27-Jan-2016 End : 04-May-2016 Inactive ENABLEX, 7.5MG (Oral Tablet Extended Release 24 Hour) 1 tab qd for 0 days Refills: 0 Ordered:31-Dec-2008 Мариан Concepcion End : 31-Dec-2008 Inactive LIPITOR, 80MG [...] days Quantity: 90 {Tablet} Refills: 3 Ordered:28-Dec-2011 Ambrocio DO, Chaparrita AFast DO, Chaparrita A Start [...] days Quantity: 120 {Tablet} Refills: 0 Ordered:04-Mar-2008 Ambrocio WOLFF, Chaparrita AFast , Chaparrita A Start : 04-Mar-2008 End : [...] and dispense 8 ounes TOTAL mixed solutionCal [id number] if questions SPECTAZOLE, 1% (External Cream) 1 [...] qd for 90 days Refills: 3 Ordered:14-Jul-2015 Chaparrita Albrecht DOast , Chaparrita A Start : 14-Jul-2015 End : [...] End : 11-Feb-2015 Discontinued Comments:[age], called to [facility] 08-30-14 erussell Allergies and Adverse Reactions [...] Meningioma (Renamed from 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, 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, BRAIN/FINANCIAL SERVICES REPRESENTATIVE NEC) (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 2016 right Cholecystectomy Completed lumbar mtzsmr==3304 Completed Tonsillectomy Completed Date Value Details 19-Dec-2017 Echocardiogram Complete Result: Comments: See Note; NOTES: [facility] Cardiovascular Services [address] [place] [address] Echo Complete 12/19/17 0800 MR#: [id number] Acct: [id number] Name: CLARENCE ALBERT ep #: [id number] : 1940 77 From: Chuckie Cormier MD Attending Dr: Chaparrita Albrecht DO Status: REG CLI Ordering Dr: Chaparrita Albrecht DO Date: 12/19/17 Location: [facility] Sex: F C Admitted: Reason For Study: [...] Dictated: 12/19/17 0800 Date Transcribed: 12/19/17 1022 Fire Pilot: Signed 07-Dec-2017 Carotid Duplex Ultrasound Result: Comments: See Note; NOTES: [facility] Cardiovascular Services [address] [place] [address] Carotid Duplex Ultrasound 12/06/17 0901 MR#: [id number] Acct: [id number] Name: CLARENCE WHITTINGTON Rep #: [id number] : 1940 77 From: Anurag Loya MD [...] the left vertebral artery. Procedure Carotid Duplex 42797. Exam performed in department. Interpretation Summary Mild (<50%) stenosis right extracranial internal carotid. Mild (<50%) stenosis left extracranial internal carotid. Flow within the vertebral arteries is antegrade bilaterally. __ __ Ordering Physician: Chaparrita Albrecht Performed By: Margot Benton RVT and Student 12/07/17808 Date Anurag Loya MD CC: Chaparrita Albrecht DO Date Dictated: 12/06/17900 Date Transcribed: 12/07/17808 Fire Pilot: Signed 06-Dec-2017 SCREENING MAMM (CAD), BILAT Result: Comments: See Note; NOTES: [facility] Imaging Services [address] [place] [address] SCREENING MAMM (CAD), BILAT MR#: [id number] Acct: [id number] Name: CLARENCE ALBERT Rep #: [id number] : 1940 F 77 From: Misael Hebert MD PCP: Chaparrita Albrecht DO Status: REG CLI Study: SCREENING MAMM (CAD), BILAT Date of Exam: 12/06/17 Exam# [id number] Ordering Dr: Chaparrita Albrecht DO MAMM OGRAPHY [...] delay biopsy of a clinically suspicious abnormality. [id number] Electronically Signed: Misael Hebert MD at 15:31 EDT Tel [phone], Se rvice support , CC: Chaparrita Albrecht DO Fire Pilot: Signed 10-Jun-2017 Brain W/WO Contrast Result: Comments: See Note; NOTES: [facility] Imaging Services [address] [place] [address] Brain W/WO Contrast MR#: [id number] Acct: [id number] Name: CLARENCE ALBERT Rep #: [id number] : 1940 F 77 From: Laya Montilla MD PCP: Chaparrita Albrecht DO Status: REG CLI Study: Brain W/WO Contrast Date of Exam: 06/10/17 Exam# [id number] Ordering Dr: Chaparrita Albrecht DO STUDY: MRI [...] Service support , CC: Chaparrita Albrecht DO Fire Pilot: Signed 05-May-2017 Chest PA and Lateral Result: Comments: See Note; NOTES: [facility] Imaging Services [address] [place] [address] Chest PA and Lateral MR#: [id number] Acct: [id number] Name: CLARENCE ALBERT Rep #: [id number] : 1940 F 77 From: Edwar Patino MD PCP: Chaparrita Albrecht DO Status: REG CLI Study: Chest PA and Lateral Date of Exam: 05/05/17 Exam# [id number] Ordering Dr: Keri Singh MD STUDY: X-RAY [...] CC: Keri Singh MD; Chaparrita Albrecht DO Fire Pilot: Signed 02-Nov-2016 Dexa Bone Density Study (HP) Result: Comments: See Note; NOTES: [facility] Imaging Services [address] [place] [address] Verdana 4d Dexa Bone Density Study () MR#: [id number] Acct: [id number] Name: LYNNE ALBERT Rep #: [id number] : 1940 F 76 From: Misael Hebert MD PCP: Chaparrita Albrecht DO Status: REG CLI Study: Dexa Bone Density Study () Date of Exam: 11/02/16 Exam# [id number] Ordering Dr: Laura DO STUDY: DUAL ENERGY [...] Misael Hebert MD at 11:02 EDT Tel [phone], Service support , CC: Chaparrita Albrecht DO Fire Pilot: Signed 02-Nov-2016 SCREENING MAMM (CAD), BILAT Result: Comments: See Note; NOTES: [facility] Imaging Services [address] [place] [address] Verdana 4d SCREENING MAMM (CAD), BILAT MR#: [id number] Acct: [id number] Name: CLARENCE ALBERT Rep #: [id number] : 1940 F 76 From: Misael Hebert MD PCP: Chaparrita Albrecht DO Status: REG CLI Study: SCREENING MAMM (CAD), BILAT Date of Exam: 11/02/16 Exam# [id number] Ordering Dr: Case Albrecht DO MAMMOGRAPHY - [...] delay biopsy of a clinically suspicious abnormality. [id number] Electronically Signed: Misael Hebert MD at 12:44 EDT Tel [phone], Service support , CC: Chaparrita Albrecht DO Fire Pilot: Signed 05-Aug-2016 Venous Duplex Lower Extremity Result: Comments: See Note; NOTES: [facility] Cardiovascular Services [address] [facility] [address] Venous Duplex US, Unilateral 08/05/16 1053 MR#: [id number] Acct: [id number] Name: CLARECNE WEI Rep #: [id number] : 1940 76 From: Elvin Natarajan MD [...] Dictated: 08/05/16 1053 Date Transcribed: 08/05/16 1127 Fire Pilot: Signed 27-May-2016 Knee 4 or More Views Result: Comments: See Note; NOTES: [facility] Imaging Services [address] [place] [address] Verdana 4d Knee 4 or More Views MR#: [id number] Acct: [id number] Name: LCARENCE ALBERT Rep #: [id number] : 1940 F 76 From: Misael Hebert MD PCP: Chaparrita Albrecht DO Status: REG CLI Study: Knee 4 or More Views Date of Exam: 05/27/16 Exam# [id number] Ordering Dr: Kylah Linda DO UDY: X-RAY [...] MD at 10:41 EST , Service support [phone], CC: Chaparrita Albrecht DO; Kylah Linda DO Fire Pilot: Signed 13-May-2016 Sinus/Facial Bone Result: Comments: See Note; NOTES: [facility] Imaging Services [address] [place] [address] Verdana 4d Sinus/Facial Bone MR#: [id number] Acct: [id number] Name: CLARENCE ALBERT Rep #: [id number] : 1940 F 76 From: Godwin Winter MD PCP: Chaparrita Albrecht DO Status: REG CLI Study: Sinus/Facial Bone Date of Exam: 05/13/16 Exam# [id number] Ordering Dr: Alejandro Silverman MD STUDY: CT [...] MD at 7:35 EST , Service support [phone], CC: Chaparrita Albrecht DO; Alejandro Silverman MD Fire Pilot: Signed 21-Apr-2016 Emergency Department Summary Result: Comments: See Note; NOTES: [facility] Medical Records Department [address] [place] [address] Emergency Department Summary MR#: [id number] Acct: [id number] Name: CLARENCE ALBERT Rep #: [id number] : 1940 76 From: Carissa Murphy MD [...] Left anterior epistaxis. CARISSA MURPHY MD T: [facility] JOB: [id number] 04/21/1606 <Electronically signed by Carissa Murphy MD> Date Carissa donovan MD Cosigner Signature (If Indicated): Date CC: Chaparrita Albrecht DO Date Dictated: 04/20/161711 Date Transcribed: 04/20/161711 Fire Pilot: Signed 20-Apr-2016 Discharge Instruction Result: Comments: See Note; NOTES: [facility] Medical Records Department [address] [place] [address] Discharge Instruction 04/20/16 1303 MR#: [id number] Acct: [id number] Name: CLARENCE ALBERT Rep #: [id number] : 1940 76 From: Carissa Murphy MD [...] your Primary Care Provider. Call [facility] ([phone]) or report to the closest Emergency Room. Call 911 if necessary. 04/20/16 1645 <Electronically signed by Carissa Murphy MD> Date Carissa Murphy MD Cosigner Signature (If I ndicated): Date CC: Chaparrita Albrecht DO 02-Nov-2015 Carotid Duplex Ultrasound Result: Comments: See Note; NOTES: [facility] Cardiovascular Services [address] [place] [address] Carotid Duplex Ultrasound 10/30/15 1100 MR#: [id number] Acct: [id number] Name: CLARENCE ALBERT Rep #: [id number] : 1940 75 From: Elvin Natarajan MD Attending Dr: Chaparrita Albrecht DO Status: REG CLI Ordering Dr: Chaparrita Albrecht DO Date: 10/30/15 Location: [facility] Sex: F C Adm itted: Reason For [...] the left vertebral artery. Procedure Carotid Duplex 46352. The exam was diagnostic. Exam performed in [...] Dictated: 10/30/15 1100 Date Transcribed: 11/02/15 1143 Fire Pilot: Signed 30-Oct-2015 Bilat Scrn Digital AND CAD Result: Comments: See Note; NOTES: [facility] Imaging Services [address] [place] [address] Verdana 4d Bilat Scrn Digital AND CAD MR#: [id number] Acct: [id number] Name: CLARENCE ALBERT Rep #: [id number] : 1940 F 75 From: Andres Brady MD PCP: Chaparrita Albrecht DO Status: REG CLI Study: Bilat Scrn Digital AND CAD Date of Exam: 10/30/15 Exam# [id number] Ordering Dr: Chaparrita Albrecht DO MAMMOGRAPHY - [...] calcifications. No other significant abnormalities are identified. HPBI/Saad Jaffe Digi claudia AND CAD IMPRESSION: Stable bilateral screening mammogram. Yearly follow- up mammogram recommended. (A) ASSESSMENT CATEGORY: BIRADS Category 2: Benign. A le tter regarding these results will be sent to the patient by the facility within 30 days. Approximately 10% of breast cancers are not detected by mammography. A normal mammogram should not delay biop sy of a clinically suspicious abnormality. [id number] Electronically Signed: Andres Brady MD at 17:48 EDT Tel , Service support [phone], CC: Chaparrita Albrecht DO Fire Pilot: Signed 30-Oct-2015 Bilat Ld Digital AND CAD Result: Comments: See Note; NOTES: [facility] Imaging Services [address] [place] [address] Verdana 4d Bilat Scrn Digital AND CAD MR#: [id number] Acct: [id number] Name: CLARENCE ALBERT Rep #: [id number] : 1940 F 75 From: Andres Brady MD PCP: Chaparrita Albrecht DO Status: REG CLI Study: Bilat Ld Digital AND CAD Date of Exam: 10/30/15 Exam# [id number] Ordering Dr: Chaparrita Albrecht DO MAMMOGRAPHY - [...] abnormalities are identified. CC: Chaparrita Albrecht DO Fire Pilot: Signed 22-Oct-2015 ELECTROCARDIOGRAM, COMPLETE (ECG) (04880) Comments: ekg showed normal sinus rhythym, normal axis, no acute st/t wave changes no change Result: [MEASUREMENTS ANALYSIS] Date of Test: 10/22/2015 14:41:29; Heart Rate: 71; NC Interval: 140; QRS: 94; QT Interval: 384; Corrected QT Interval (QTc): 403; P Wave Killen: 58; QRS Wave Killen: -3; T Wave Killen: 56; Blood Pressure: 128/76 [ECG DIAGNOSTIC STATEMENTS] Date of Test: 10/22/2015 14:41:29; Summary: Sinus Rhythm Low voltage -possible pulmonary disease. ABNORMAL 22-Jul-2015 Kidney and Bladder Result: Comments: See Note; NOTES: [facility] Imaging Services [address] [place] [address] Verdana 4d Kidney and Bladder MR#: [id number] Acct: [id number] Name: Yaniv ALBERT Rep #: [id number] : 1940 F 75 From: Nir Sanchez MD PCP: Chaparrita Albrecht DO Status: REG CLI Study: Kidney and Bladder Date of Exam: 07/22/15 Exam# [id number] Ordering Dr: Chaparrita Albrecht DO STUDY: RENAL [...] at 4:59 EDT Tel , Service support [phone], CC: Chaparrita Albrecht DO Fire Pilot: Signed 11-Mar-2015 Knee 4 or More Views Result: Comments: See Note; NOTES: [facility] Imaging Services [address] [place] [address] Verdana 4d Knee 4 or More Views MR#: [id number] Acct: [id number] Name: CLARENCE ALBERT Rep #: [id number] : 1940 F 74 From: Trent Cameron DO PCP: Chaparrita Albrecht DO Status: REG CLI Study: Knee 4 or More Views Date of Exam: 03/11/15 Exam# [id number] Ordering Dr: Case Albrecht DO STUDY: X-RAY [...] at 7:45 EST Tel , Service support [phone], RAD/Knee 4 or More Views IMPRESSION: Degener ative changes within the knee. No acute fracture. Small suprapatellar effusion. Electronically Signed: Trent Cameron DO at 7:45 EST Tel , Service support [phone], CC: Chaparrita Albrecht DO Fire Pilot: Signed 11-Mar-2015 Knee 4 or More Views Result: Comments: See Note; NOTES: [facility] Imaging Services [address] [place] [address] Verdana 4d Knee 4 or More Views MR#: [id number] Acct: [id number] Name: CLARENCE ALBERT Rep #: [id number] : 1940 F 74 From: Trent Cameron DO PCP: Chaparrita Albrecht DO Status: REG CLI Study: Knee 4 or More Views Date of Exam: 03/11/15 Exam# [id number] Ordering Dr: Case Albrecht DO STUDY: X-RAY [...] at 7:46 EST Tel , Service support [phone], RAD/Knee 4 or More Views IMPRESSION: Mild degenerative changes. No acute bony abnormality. Electronically Signed: Trent Cameron DO at 7:46 EST Tel , Service support [phone], CC: Chaparrita Albrecht DO Fire Pilot: Signed 18-Oct-2014 Carotid Duplex Ultrasound Result: Comments: See Note; NOTES: [facility] Cardiovascular Services [address] [place] [address] Carotid Duplex Ultrasound 10/18/14 1331 MR#: [id number] Acct: [id number] Na me: CLARENCE ALBERT Rep #: [id number] : 1940 74 From: Elvin Natarajan MD [...] the left vertebral artery. Procedure Carotid Duplex 61196. The exam was diagnostic. Exam performed in [...] Date Dictated: 10/18/14 1331 Date Transcribed: 10/18/14 161 Fire Pilot: Signed 18-Oct-2014 Saad Jaffe Digital AND CAD Result: Comments: See Note; NOTES: [facility] Imaging Services [address] [place] [address] Breast Imaging Report MR#: [id number] Acct: [id number] Name: CLARENCE ALBERT Rep #: [id number] : 1940 F 74 From: Misael Hebert MD PCP: Chaparrita Albrecht DO Status: REG CLI Study: Saad Jaffe Digital AND CAD Date of Exam: 10/18/14 Exam# [id number] Ordering Dr: Chaparrita Albrecht DO MAMMOGRAPHY - [...] Misael redmond MD at 13:44 EDT Tel [phone], Service support [phone], CC: Chaparrita Albrecht DO Fire Pilot: Signed 09-Jul-2014 Dexa Bone Density Study (HP) Result: Comments: See Note; NOTES: [facility] Imaging Services [address] [place] [address] Bone Density Report MR#: [id number] Acct: [id number] Name: CLARENCE ALBERT Rep #: [id number] : 1940 F 74 From: Msiael Hebert MD PCP: Chaparrita Albrecht DO Status: [facility] Study: Dexa Bone Density Study (HP) Date of Exam: 07/09/14 Exam# [id number] Ordering Dr: Chaparrita Albrecht DO STUDY: DUAL [...] Angel Hebert MD at 14:55 EDT Tel [phone], Service support [phone], CC: Chaparrita Albrecht DO Fire Pilot: Signed 17-Sep-2013 Chest PA and Lateral Result: Comments: See Note; NOTES: [facility] Imaging Services [address] [place] [address] Radiology Report MR#: [id number] Acct: [id number] Name: CLARENCE ALBERT Rep #: [id number] : 1940 F 73 From: David Bennett MD PCP: Chaparrita Albrecht DO Status: REG CLI Study: Chest PA and Lateral Date of Exam: 09/17/13 Exam# [id number] Ordering Dr: Chaparrita Albrecht DO STUDY: X-RAY [...] MD at 20:44 EDT , Service support [phone], RAD/Chest PA and Lateral IMPRESSION: No focal infiltrate or edema. Electronic ally Signed: David Bennett MD at 20:44 EDT , Service support [phone], CC: Chaparrita Albrecht DO Fire Pilot: Signed 17-Sep-2013 Spirometry (35417) Result: 29-Aug-2013 Carotid Duplex Ultrasound Result: Comments: See Note; NOTES: [facility] Cardiovascular Services [address] [place] [address] Carotid Duplex Ultrasound 08/24/13 0939 MR#: [id number] Acct: [id number] Chalo e: CLARENCE ALBERT Rep #: [id number] : 1940 73 From: Anurag Loya MD Attending Dr: Chaparrita Albrecht DO Status: REG CLI Ordering Dr: Chaparrita Albrecht DO Date: 08/24/13 Location: [facility] Sex: F C Admitted: Rt. Velocities/BP Lt. [...] in the left bulb. Procedure Carotid Duplex 88542. Exam perfor med in department. Interpretation Summary Mild (<50%) stenosis right extracranial internal carotid. Mild (<50%) stenosis left extracranial internal carotid. Flow within the vertebra l arteries is antegrade bilaterally. Ordering Physician: Chaparrita Albrecht Performed By: Kendal Benton RVT : Chaparrita Albrecht DO Date Dictated: 08/24/13 0939 Date Transcribed: 08/29/13 1118 Fire Pilot: Signed Immunization Name Dates Details Influenza (3 years and up) on: 16-Jan-2008 Comments: Lot #: [id number] date: 09/10Amount given: 0.5 mlRoute: IMSite given: Left deltoidGiven by: Olivia Bell LPN Influenza (3 years and up) on: 09-Jan-2009 Comments: Lot #[id number]-left deltoidDose0.5mlgiven by Marycarmen Jorge LPN Pneumococcal (2 years and up) on: 29-Aug-2007 Comments: 0.5cc given im lt arm [id number] exp 02-13-08 Family History Unknown Family Member [...] kg/m2 Body Surface Area Calculated 1.76 m2 [id number]-Knb-[id number]:39 Temperature 97.9 f Comments: Method: Temporal Pulse [...] copy of this report has been sent [phone].PATIENT WAS FASTINGPERFORMED BY: [facility] CenterMnskru6[address] [facility] [id number] Alb/Creat Ratio 4475.5 {mg/g_creat} (Abnormal) Range: 0.0-30.0 Comments: Normal: 0.0 - 30.0 Albuminuria: 31.0 - 300.0 Clinical albuminuria: >300.0 Albumin, Urine 2085.6 ug/mL (Normal) Comments: Results confirmed ondilution. Creatinine, Urine 46.6 mg/dL (Normal) :33 CBC With Differential/Platelet Comments: A courtesy copy of this report has been sent [phone].PATIENT WAS FASTINGPERFORMED BY: [facility] CenterBqqevk5807 [facility] [id number] Information: ADD CBC Immature Grans (Abs) 0.0 [...] copy of this report has been sent [phone].PATIENT WAS FASTINGPERFORMED BY: [employer] Flutura SolutionsCount includes the [facility] [id number] :33 Range: 1.6-2.3 :33 Microscopic Examination Comments: A courtesy copy of this report has been sent [phone].PATIENT WAS FASTINGPERFORMED BY: [employer] [facility] [id number] Bacteria Few (Normal) Mucus Threads Present (Normal) Epithelial Cells (non 0-10 {/hpf} Range: 0 - 10 renal) (Normal) RBC 0-2 {/hpf} (Normal) Range: 0 - 2 WBC 0-5 {/hpf} (Normal) Range: 0 - 5 : PTH, Intact 29 pg/mL (Normal) Comments: A courtesy copy of this report has been sent [phone].PATIENT WAS FASTINGPERFORMED BY: [employer] Toilis32[address] [facility] [id number] 33 Range: 15-65 :33 Renal Panel (10) Comments: A courtesy copy of this report has been sent [phone].PATIENT WAS FASTINGPERFORMED BY: [employer] [facility] [id number] Phosphorus 4.0 mg/dL (Normal) Range: 2.5-4.5 :33 Vitamin D Hydroxy (86307) Comments: A courtesy copy of this report has been sent [phone].PATIENT WAS FASTINGPERFORMED BY: [employer] Nfghre44[address] [facility] [id number] Vitamin D, 25-Hydroxy 36.8 ng/mL (Normal) Range: 30.0-100.0 Comments: Vitamin D deficiency has been defined by the [place] of[place]icine and an Endocrine Society practice guideline as alevel of serum 25-OH vitamin D less than 20 ng/mL (1,2).The Endocrine Society went on to further define vitamin Dinsufficiency as a level between 21 and 29 ng/mL (2).1. IOM ([place] of [employer]). 2010. Dietary reference intakes for calcium and D. [place]: The National Academies Press.2. Mira MF, Rosette LOPEZ, Tommy SWAIN, et al. Evaluation, treatment, and prevention of vitamin D deficiency: an Endocrine Society clinical practice guideline. JCEM. 2010; 96(7):1911-30. :33 URINALYSIS, W/ MICRO (99008) Comments: A courtesy copy of this report has been sent [phone].PATIENT WAS FASTINGPERFORMED BY: [employer]6370 [facility] [id number] Microscopic Examination See below: (Normal) Comments: Microscopic was indicated and was performed. Nitrite, Urine Negative (Normal) Urobilinogen,Semi-Qn 0.2 mg/dL (Normal) Range: 0.2-1.0 Bilirubin Negative (Normal) Occult Blood Negative (Normal) Ketones Negative (Normal) Glucose Negative (Normal) Protein 3+ (Abnormal) WBC Esterase Negative (Normal) Appearance Clear (Normal) Urine-Color Yellow (Normal) pH 5.5 (Normal) Range: 5.0-7.5 Specific [place] 1.012 (Normal) Range: 1.005-1.030 :33 LIPID PANEL (05961) Comments: A courtesy copy of this report has been sent [phone].PATIENT WAS FASTINGPERFORMED BY: [employer]6[address] [facility] [id number] LDL/HDL Ratio 1.4 {ratio} (Normal) Range: 0.0-3.2 [...] copy of this report has been sent [phone].PATIENT WAS FASTINGPERFORMED BY: LabCoP[facility] CenterAjudwm4625 [facility] [id number] (77914) ALT (SGPT) 11 [iU]/L (Normal) Range: 0-32 [...] 8-27 Glucose 162 mg/dL (Abnormal) Range: 65-99 30-Fdo-881573:24 HgA1C , Office (53139) HgA1C , Office 6.5 % (Normal) Range: 4.6 - 7.1 :33 HGB A1C (84842) Comments: A courtesy copy of this report has been sent [phone].PATIENT WAS FASTINGPERFORMED BY: Digital Bloom LabDigly6370 XekoCount includes the [facility] [id number] Hemoglobin A1c 6.3 % (Abnormal) Range: 4.8-5.6 Comments: . Prediabetes: 5.7 - 6.4 Diabetes: >6.4 Glycemic control for adults with diabetes: <7.0 :14 LIPID PANEL (84747) Comments: PATIENT WAS FASTINGPERFORMED BY: FilmTrack[address] [facility] [id number] LDL/HDL Ratio 1.1 {ratio} (Normal) Range: 0.0-3.2 [...] (Normal) Range: 100-199 :14 Vitamin D Hydroxy (53367) Comments: PATIENT WAS FASTINGPERFORMED BY: LabCo Ggsyot[address] [id number] Vitamin D, 25-Hydroxy 37.8 ng/mL (Normal) Range: 30.0-100.0 Comments: Vitamin D deficiency has been defined by the [place] of[place]icine and an Endocrine Society practice guideline as alevel of serum 25-OH vitamin D less than 20 ng/mL (1,2).The Endocrine Society went on to further define vitamin Dinsufficiency as a level between 21 and 29 ng/mL (2).1. IOM ([place] of Medicine). 2010. Dietary reference intakes for calcium and D. [place]: The National Academies Press.2. Mira MF, Rosette LOPEZ, Tommy SWAIN, et al. Evaluation, treatment, and prevention of vitamin D deficiency: an Endocrine Society clinical practice guideline. JCEM. 2010; 96(7):1911-30. -:14 CBC with auto diff (92314) Comments: PATIENT WAS FASTINGPERFORMED BY: LabCoP[facility] Medicine [facility] CenterQnvazs0646 [address] [id number] Immature Grans (Abs) 0.0 {x10E3/uL} (Normal) Range: [...] PANEL, COMPREHENSIVE Comments: PATIENT WAS FASTINGPERFORMED BY: LabCoP[facility] Medicine [facility] CenterUpnfgx4375 [address] [id number] (51189) ALT (SGPT) 10 [iU]/L (Normal) Range: 0-32 [...] CREATININE RATIO Comments: PATIENT WAS FASTINGPERFORMED BY: [facility]6[address] [id number] (73187) AND (31054) Alb/Creat Ratio 4213.3 {mg/g_creat} (Abnormal) Range: 0.0-30.0 Albumin, Urine 3206.3 ug/mL (Normal) Comments: Results confirmed ondilution. Creatinine, Urine 76.1 mg/dL (Normal) :40 CBC & PLATELETS (AUTO) (50705) Comments: please fax to Dr. Austin- [phone]; PATIENT WAS FASTINGPERFORMED BY: MicreosPenn Medicine Princeton Medical CenterYsemni1593 [address] [id number] Platelets 148 {x10E3/uL} (Abnormal) Range: 150-379 RDW [...] PANEL Comments: please fax to Dr. Austin- [phone]; PATIENT WAS FASTINGPERFORMED BY: TopSchoolPenn Medicine [facility] Medical CenterQhidiy2632 [address] [id number] Information: [id number] FX DR. SANTANA (77075) Albumin 3.1 g/dL (Abnormal) Range: 3.5-4.8 Phosphorus [...] 133 mg/dL (Abnormal) Range: 65-99 :40 MAGNESIUM (78218) Comments: please fax to Dr. Austin- [phone]; PATIENT WAS FASTINGPERFORMED BY: [facility]Put[facility] Oosujs3655 [address] RoadDublin [place] [id number] Magnesium 1.9 mg/dL (Normal) Range: 1.6-2.3 :40 CALCIFEDIOL (25788) Comments: please fax to Dr. Austin- [phone]; PATIENT WAS FASTINGPERFORMED BY: [facility]Put[facility] Bzvqad8845 [address] City RoadDublin [place] [id number] Vitamin D, 25-Hydroxy 29.4 ng/mL (Abnormal) Range: 30.0-100.0 Comments: Vitamin D deficiency has been defined by the [place] of[place]icine and an Endocrine Society practice guideline as alevel of serum 25-OH vitamin D less than 20 ng/mL (1,2).The Endocrine Society went on to further define vitamin Dinsufficiency as a level between 21 and 29 ng/mL (2).1. IOM ([place] of [employer]). 2010. Dietary reference intakes for calcium and D. [place]: The National Academies Press.2. Mira MF, Rosette NC, Tommy SWAIN, et al. Evaluation, treatment, and prevention of vitamin D deficiency: an Endocrine Society clinical practice guideline. JCEM. 2010; 96(7):1911-30. :40 PARATHORMONE (23207) Comments: please fax to Dr. Austin- [phone]; PATIENT WAS FASTINGPERFORMED BY: [facility]Put[facility] Kzcnea6778 [address] RoadDublin [place] [id number] PTH, Intact 22 pg/mL (Normal) Range: 15-65 72-Eon-41850:30 COLON BIOPSY (CHOOSE See Note (Normal) Comments: [facility] Mplmknqoop6105 [address] [place], [address] SITE) Comments: Patient: CLARENCE ALBERT : 1940 (77/F) Acct Num: [id number] Phys: Marcus Caldera Unit Num: [id number] Loc: LABSPEC Specimen: [id number] Received: 09/16/171528 Spec Type: Kendal MAURER TISSUES [...] one cassette. / MARCY:dustin 09/19/17 TC:1 CPT: 25059 x2 HEADER OPERATION: Colonoscopy PRE-OP DIAGNOSIS: History of polyps TISSUE SUBMITTED: A Proximal sigmoid polyp, rule out adenoma, B Transversecolon, rule out adenoma MICROSCOPIC DESCRIPTION Slides are reviewed. M ICROSCOPIC DIAGNOSIS A. Proximal sigmoid polyp, biopsy: Fragments of tubular adenoma. B. Transverse colon polyp, biopsy: Fragments of tubular adenoma. SJ:dustin 09/20/17 Signed _ Nacho Ardon 09/20/17 <signature on file> 06-Cye-94201:24 METABOLIC PANEL, COMPREHENSIVE Comments: PATIENT NOT FASTINGPERFORMED BY: LabCo Yawxhf495[address] [id number] (50237) ALT (SGPT) 14 [iU]/L (Normal) Range: 0-32 [...] (Abnormal) Range: 65-99 :07 HgA1C , Office (46984) HgA1C , Office 7.2 % (Abnormal) Range: 4.6 - 7.1 :37 Clostridium difficile Toxin Comments: PATIENT NOT FASTINGPERFORMED BY: Micreos [employer] [facility] [id number] A+B, EIA (09040) C difficile Toxins A+B, EIA Negative (Normal) :37 LEUKOCYTE COUNT, FECAL (70879) Comments: PATIENT NOT FASTINGPERFORMED BY: Micreos [employer] [address] [id number] Result 1 NWBC (Normal) Comments: No white blood cells seen. White Blood Cells (WBC), Final report (Normal) Stool :37 OVA & PARASITE DIR SMEAR Comments: PATIENT NOT FASTINGPERFORMED BY: [employer]os [employer] [facility] [id number] (14545) Result 1 NOCP (Normal) Comments: No ova, cysts, or parasites seen. Ova + Parasite Exam Final report (Normal) Comments: These results were obtained using wet preparation(s) and trichromestained smear. This test does not include testing for Cryptosporidiumparvum, Cyclospora, or Microsporidia. :37 SETH CULTURE-STOOL (98492) Comments: PATIENT NOT FASTINGPERFORMED BY: Micreos Qfdauh[address] [facility] [id number] Information: SRC:ST SRC:ST E coli Shiga Toxin EIA Negative (Normal) Result 1 NCI (Normal) Comments: No Campylobacter species isolated. Campylobacter Culture Final report (Normal) Result 1 NSS (Normal) Comments: No Salmonella or Shigella recovered. Salmonella/Shigella Screen Final report (Normal) :06 Renal function Panel Comments: fax copy to Dr. Santana [phone]; A courtesy copy of this report has been sent [phone].PATIENT NOT FASTINGPERFORMED BY: Micreos Odwabs[address] GenieMD, LLCECU Health Medical Center [id number] Information: NURSE DRAW (80843) Albumin 3.5 g/dL (Normal) Range: 3.5-4.8 Phosphorus [...] copy of this report has been sent [phone].PATIENT NOT FASTINGPERFORMED BY: [employer]School Wynywm6356 [address] [id number] :02 Range: 15-65 Vitamin D, 25-Hydroxy 34.7 ng/mL (Normal) Comments: A courtesy copy of this report has been sent [phone].PATIENT NOT FASTINGPERFORMED BY: Micreos Kbbxhu9[address] [id number] :02 Range: 30.0-100.0 Comments: Vitamin D deficiency has been defined by the [place] of[place]icine and an Endocrine Society practice guideline as alevel of serum 25-OH vitamin D less than 20 ng/mL (1,2).The Endocrine Society went on to further define vitamin Dinsufficiency as a level between 21 and 29 ng/mL (2).1. IOM ([place] of [place]). 2010. Dietary reference intakes for calcium and D. [place]: The National Academies Press.2. Mira MF, Rosette LOPEZ, Tommy SWAIN, et al. Evaluation, treatment, and prevention of vitamin D deficiency: an Endocrine Society clinical practice guideline. JCEM. 2010; 96(7):1911-30. 1-Hdj-093988:02 MICROALBUMIN: CREATININE RATIO Comments: send results to Dr. Santana fax: [phone]; A courtesy copy of this report has been sent [phone].PATIENT NOT FASTINGPERFORMED BY: FilmTrack6[address] [facility] [id number] (49546) AND (84756) Alb/Creat Ratio 4191.2 {mg/g_creat} (Abnormal) Range: 0.0-30.0 Albumin, Urine 2380.6 ug/mL (Normal) Comments: Results confirmed ondilution. Creatinine, Urine 56.8 mg/dL (Normal) :02 CBC, PLATELETS & MANUAL Comments: send results to Dr. Santana fax: [phone]; A courtesy copy of this report has been sent [phone].PATIENT NOT FASTINGPERFORMED BY: Micreos Fmqhgv6552 [address] [id number] Information: VIT D25, PTH DIFF (81683) Immature Grans (Abs) 0.0 {x10E3/uL} (Normal) Range: [...] 3.77-5.28 WBC 5.4 {x10E3/uL} (Normal) Range: 3.4-10.8 0-Dmz-187555:02 MAGNESIUM (52700) Comments: send results to Dr. Santana fax: [phone]; A courtesy copy of this report has been sent [phone].PATIENT NOT FASTINGPERFORMED BY: LabCo Wwslqt7201 [address] [id number] Magnesium, Serum 1.8 mg/dL (Normal) Range: 1.6-2.3 6-Tyb-698206:02 RENAL FUNCTION PANEL (11597) Comments: send results to Dr. Santana fax: [phone]; A courtesy copy of this report has been sent [phone].PATIENT NOT FASTINGPERFORMED BY: [employer]School Bmsbta5[address] [id number] Albumin, Serum 3.7 g/dL (Normal) Range: 3.5-4.8 [...] Glucose, Serum 119 mg/dL (Abnormal) Range: 65-99 9-Sak-393559:07 LIPID PANEL (79010) Comments: PATIENT WAS FASTINGPERFORMED BY: [employer] Researchlin6370 [address] [id number] LDL/HDL Ratio 1.4 {ratio} (Normal) Range: 0.0-3.2 Comments: LDL/HDL Ratio Men Women 1/2 Avg.Risk 1.0 1.5 Av g.Risk 3.6 3.2 2X Avg.Risk 6.2 5.0 3X Avg.Risk 8.0 6.1 LDL Cholesterol Calc 102 mg/dL (Abnormal) Range: 0-99 VLDL Cholesterol Cesar 17 mg/dL (Normal) Range: 5-40 HDL Cholesterol 75 mg/dL (Normal) Triglycerides 84 mg/dL (Normal) Range: 0-149 Cholesterol, Total 194 mg/dL (Normal) Range: 100-199 1-Cyh-395183:07 CBC W/AUTO DIFF WBC (27122) Comments: PATIENT WAS FASTINGPERFORMED BY: Swipp Jueidz2034 [address] [id number] Immature Grans (Abs) 0.0 {x10E3/uL} (Normal) Range: [...] 3.77-5.28 WBC 4.8 {x10E3/uL} (Normal) Range: 3.4-10.8 9-Eyr-479453:07 METABOLIC PANEL, COMPREHENSIVE Comments: PATIENT WAS FASTINGPERFORMED BY: LabCoP[facility] Medicine [facility] Medical CenterLexfji5286 [address] [id number] (18608) ALT (SGPT) 14 [iU]/L (Normal) Range: 0-32 [...] y ears - 12 years 19 - 19 - 27 >12 years - 20 - 29 Chloride 104 mmol/L (Normal) Range: 96-106 Potassium 4.7 mmol/L (Normal) Range: 3.5-5.2 Sodium 143 mmol/L (Normal) Range: 134-144 BUN/Creatinine Ratio 20 (Normal) Range: 12-28 eGFR If Africn Am 32 mL/min/1.73 (Abnormal) eGFR If NonAfricn Am 28 mL/min/1.73 (Abnormal) Creatinine 1.73 mg/dL (Abnormal) Range: 0.57-1.00 BUN 34 mg/dL (Abnormal) Range: 8-27 Glucose 158 mg/dL (Abnormal) Range: 65-99 8-Wfr-290817:07 VITAMIN B-12 (CYANOCOBALAMIN) Comments: PATIENT WAS FASTINGPERFORMED BY: LabCoP[facility] Medicine [facility] Medical CenterHnuuqr0313 [address] [id number] (77207) Vitamin B12 771 pg/mL (Normal) Range: 232-1245 13-May-20170:00 CDIFF (Molecular) Comments: [facility] Kvblpjvgzv[address] [place], [place], [address] CDIFF See Note (Normal) Comments: Cdiff-MolecularNormal Reference Range = Negative C. Diff DNA Negative- No toxigenic C. Diff DNA DetectedNAAT METHOD Testing was performed using nucleic acid amplification 05-May-20179:32 Rapid Flu (35770 x 2) Influenza A Ag Negative (Normal) :35 CBC with auto diff (33059) Comments: PATIENT WAS FASTINGPERFORMED BY: LabCoP[facility] Medicine [facility] Medical CenterNzbsez7239 [address] [id number] Immature Grans (Abs) 0.0 {x10E3/uL} (Normal) Range: [...] PANEL, COMPREHENSIVE Comments: PATIENT WAS FASTINGPERFORMED BY: LabCoP[facility] Medicine [facility] Medical CenterMnepdx9503 [address] [id number] (06637) ALT (SGPT) 16 [iU]/L (Normal) Range: 0-32 [...] Glucose, Serum 145 mg/dL (Abnormal) Range: 65-99 36-Ejk-189629:51 HgA1C , Office (69432) HgA1C , Office 6.7 % (Normal) Range: 4.6 - 7.1 8-Aof-769755:50 CALCIFEDIOL (91766) Comments: A courtesy copy of this report has been sent [phone].PATIENT WAS FASTINGPERFORMED BY: LabBr[facility] Hospital6[address] [id number] Vitamin D, 25-Hydroxy 40.7 ng/mL (Normal) Range: 30.0-100.0 Comments: Vitamin D deficiency has been defined by the [place] of[place]icine and an Endocrine Society practice guideline as alevel of serum 25-OH vitamin D less than 20 ng/mL (1,2).The Endocrine Society went on to further define vitamin Dinsufficiency as a level between 21 and 29 ng/mL (2).1. IOM ([place] of [place]). 2010. Dietary reference intakes for calcium and D. [place]: The National Academies Press.2. Mira MF, Rosette [place], Tommy SWAIN, et al. Evaluation, treatment, and prevention of vitamin D deficiency: an Endocrine Society clinical practice guideline. JCEM. 2010; 96(7):1911-30. 2-Lsf-095561:50 PTH (PARATHORMONE) (72643) Comments: A courtesy copy of this report has been sent [phone].PATIENT WAS FASTINGPERFORMED BY: [employer]70 XekoCount includes the [facility] [id number] PTH, Intact 20 pg/mL (Normal) Range: 15-65 7-Bab-752791:50 MICROALBUMIN: CREATININE RATIO Comments: A courtesy copy of this report has been sent [phone].PATIENT WAS FASTINGPERFORMED BY: [employer]70 XekoCount includes the [facility] [id number] (88385) AND (09068) Microalb/Creat Ratio 4376.0 {mg/g_creat} (Abnormal) Range: 0.0-30.0 Microalbumin, Urine 3369.5 ug/mL (Normal) Comments: Results confirmed ondilution. Creatinine, Urine 77.0 mg/dL (Normal) 5-Chw-050790:50 Renal function Panel Comments: A courtesy copy of this report has been sent [phone].PATIENT WAS FASTINGPERFORMED BY: Micreos Xsntmo[address] [facility] [id number] Information: SARA SANTANA [phone] (59413) Albumin, Serum 3.8 g/dL (Normal) Range: 3.5-4.8 [...] Glucose, Serum 203 mg/dL (Abnormal) Range: 65-99 2-Qlr-237033:50 Magnesium (63451) Comments: A courtesy copy of this report has been sent [phone].PATIENT WAS FASTINGPERFORMED BY: [facility] OptechBronson Methodist Hospital6[address] [id number] Magnesium, Serum 1.8 mg/dL (Normal) Range: 1.6-2.3 :53 CBC with auto diff (50419) Comments: A courtesy copy of this report has been sent [phone].PATIENT WAS FASTINGPERFORMED BY: TopSchoolPenn Medicine [facility] Medical CenterWqyzap6649 [address] [id number] Immature Grans (Abs) 0.0 {x10E3/uL} (Normal) Range: [...] {x10E3/uL} (Normal) Range: 3.4-10.8 :53 LIPID PANEL (82808) Comments: A courtesy copy of this report has been sent [phone].PATIENT WAS FASTINGPERFORMED BY: [employer] Ifzsmt0941 [address] [id number] LDL/HDL Ratio 1.2 {ratio_units} (Normal) Range: 0.0-3.2 [...] copy of this report has been sent [phone].PATIENT WAS FASTINGPERFORMED BY: MicreosPenn Medicine Princeton Medical CenterFtmxvi5503 [address] [id number] (80083) ALT (SGPT) 11 [iU]/L (Normal) Range: 0-32 [...] Glucose, Serum 205 mg/dL (Abnormal) Range: 65-99 32-Rql-462865:57 HgA1C , Office (03342) HgA1C , Office 7.1 % (Normal) Range: 4.6 - 7.1 :09 LIPID PANEL (50076) Comments: PATIENT WAS FASTINGPERFORMED BY: Apok[employer] [facility] [id number] LDL/HDL Ratio 1.3 {ratio_units} (Normal) Range: 0.0-3.2 [...] PANEL, COMPREHENSIVE Comments: PATIENT WAS FASTINGPERFORMED BY: CrownPeakCount includes the [facility] [id number] (46396) ALT (SGPT) 12 [iU]/L (Normal) Range: 0-32 [...] Glucose, Serum 152 mg/dL (Abnormal) Range: 65-99 5-Jpu-990024:50 HgA1C , Office (17484) HgA1C , Office 6.7 % (Normal) Range: 4.6 - 7.1 :25 Magnesium, Serum 1.9 mg/dL (Normal) Comments: PATIENT WAS FASTINGPERFORMED BY: EVE TopSchoolPenn Medicine [facility] Medical CenterNcxtij4193 [address] [id number] Range: 1.6-2.3 :25 Microalb/Creat Ratio, [facility] Comments: PATIENT WAS FASTINGPERFORMED BY: TopSchoolRUSTNolimi4141 [address] [id number] Microalb/Creat Ratio 2652.0 {mg/g_creat} Range: 0.0-30.0 (Abnormal) Microalbumin, Urine 2482.3 ug/mL (Normal) Comments: Results confirmed ondilution. Creatinine, Urine 93.6 mg/dL (Normal) PTH, Intact 26 pg/mL (Normal) Comments: PATIENT WAS FASTINGPERFORMED BY: [facility]Put[facility] Vzvfol5909 [address] RoadDublin [place] [id number] :25 Range: 15-65 :25 Renal Panel (10) Comments: PATIENT WAS FASTINGPERFORMED BY: LabPut[facility] Mefdnk2303 [address] [facility] [place] [id number] Phosphorus, Serum 4.3 mg/dL (Normal) Range: 2.5-4.5 :25 Thyroxine (T4) Free, Direct, S Comments: PATIENT WAS FASTINGPERFORMED BY: [facility] OptechPutnam County Memorial Hospital Lfwqnt3468 [address] [facility] HealthD[facility] [place] [id number] T4,Free(Direct) 1.08 ng/dL (Normal) Range: 0.82-1.77 : TSH 2.980 {uIU/mL} Comments: PATIENT WAS FASTINGPERFORMED BY: [facility] Vdqthn8804 [address] RoadDublin [place] [id number] 25 (Normal) Range: 0.450-4.500 : Vitamin D, 25-Hydroxy 37.1 ng/mL (Normal) Comments: PATIENT WAS FASTINGPERFORMED BY: LabCo Jkywnk3517 [address] RoadDublin [place] [id number] 25 Range: 30.0-100.0 Comments: Vitamin D deficiency has been defined by the [place] of[place]icine and an Endocrine Society practice guideline as alevel of serum 25-OH vitamin D less than 20 ng/mL (1,2).The Endocrine Society went on to further define vitamin Dinsufficiency as a level between 21 and 29 ng/mL (2).1. IOM ([place] of [place]). 2010. Dietary reference intakes for calcium and D. [place]: The National Academies Press.2. Mira MF, Rosette LOPEZ, Tommy SWAIN, et al. Evaluation, treatment, and prevention of vitamin D deficiency: an Endocrine Society clinical practice guideline. JCEM. 2010; 96(7):1911-30. :25 CBC W/AUTO DIFF WBC (49379) Comments: PATIENT WAS FASTINGPERFORMED BY: [employer]70 XekoCount includes the [facility] [id number] Immature Grans (Abs) 0.0 {x10E3/uL} (Normal) Range: [...] PANEL, COMPREHENSIVE Comments: PATIENT WAS FASTINGPERFORMED BY: [employer] Jqnovp2286 [facility] [id number]; non- emergent till apt (62944) ALT (SGPT) 10 [iU]/L (Normal) Range: 0-32 [...] mg/dL (Abnormal) Range: 65-99 03-Aug-20169:25 LIPID PANEL (50535) Comments: PATIENT WAS FASTINGPERFORMED BY: [facility] Yrxcly7[address] [id number] LDL/HDL Ratio 0.9 {ratio_units} (Normal) Range: 0.0-3.2 [...] (Normal) Range: 100-199 :54 HgA1C , Office (44953) HgA1C , Office 6.6 % (Normal) Range: 4.6 - 7.1 :1 Magnesium, Serum 2.1 mg/dL (Normal) Comments: PATIENT WAS FASTINGPERFORMED BY: CrownPeakCount includes the [facility] [id number] 2 Range: 1.6-2.3 :12 Microalb/Creat Ratio, Randm Ur Comments: PATIENT WAS FASTINGPERFORMED BY: CrownPeakCount includes the [facility] [id number] Microalb/Creat Ratio 1863.4 {mg/g_creat} (Abnormal) Range: 0.0-30.0 Microalbumin, Urine 1416.2 ug/mL (Normal) Comments: Results confirmed ondilution. Creatinine, Urine 76.0 mg/dL (Normal) :12 Microscopic Examination Comments: PATIENT WAS FASTINGPERFORMED BY: CrownPeakCount includes the [facility] [id number] Bacteria None seen (Normal) Mucus Threads Present (Normal) Cast Type Hyaline casts (Normal) Casts Present {/lpf} (Abnormal) Epithelial Cells (non 0-10 {/hpf} Range: 0 - 10 renal) (Normal) RBC 3-10 {/hpf} Range: 0 - 2 (Abnormal) WBC 6-10 {/hpf} Range: 0 - 5 (Abnormal) PTH, Intact 36 pg/mL (Normal) Comments: PATIENT WAS FASTINGPERFORMED BY: CrownPeakCount includes the [facility] [id number] 0:12 Range: 15-65 Vitamin D, 25-Hydroxy 42.9 ng/mL (Normal) Comments: PATIENT WAS FASTINGPERFORMED BY: CrownPeakCount includes the [facility] [id number] 0:12 Range: 30.0-100.0 Comments: Vitamin D deficiency has been defined by the [place] of[place]icine and an Endocrine Society practice guideline as alevel of serum 25-OH vitamin D less than 20 ng/mL (1,2).The Endocrine Society went on to further define vitamin Dinsufficiency as a level between 21 and 29 ng/mL (2).1. IOM ([place] of [employer]). 2010. Dietary reference intakes for calcium and D. [place]: The National Academies Press.2. Mira MF, Rosette LOPEZ, Tommy SWAIN, et al. Evaluation, treatment, and prevention of vitamin D deficiency: an Endocrine Society clinical practice guideline. JCEM. 2010; 96(7):1911-30. 39-Rbs-840294:12 URINALYSIS, W/ MICRO (85753) Comments: PATIENT WAS FASTINGPERFORMED BY: [facility] [employer] [place] [id number] Microscopic Examination See below: (Normal) Comments: Microscopic was indicated and was performed. Nitrite, Urine Negative (Normal) Urobilinogen,Semi-Qn 0.2 mg/dL (Normal) Range: 0.2-1.0 Bilirubin Negative (Normal) Occult Blood Negative (Normal) Ketones Negative (Normal) Glucose Negative (Normal) Protein 4+ (Abnormal) WBC Esterase Trace (Abnormal) Appearance Clear (Normal) Urine-Color Yellow (Normal) pH 6.0 (Normal) Range: 5.0-7.5 Specific [place] 1.015 (Normal) Range: 1.005-1.030 02-Isf-330070:12 CBC W/AUTO DIFF WBC (84353) Comments: PATIENT WAS FASTINGPERFORMED BY: [employer] LabCoCarZumer70 [place] [id number] Immature Grans (Abs) 0.0 {x10E3/uL} (Normal) Range: [...] 3.77-5.28 WBC 6.2 {x10E3/uL} (Normal) Range: 3.4-10.8 34-Hmc-172144:12 METABOLIC PANEL, COMPREHENSIVE Comments: PATIENT WAS FASTINGPERFORMED BY: LabCoP[facility] Medicine [facility] Medical CenterUukbkn7[address] [id number] (48596) ALT (SGPT) 14 [iU]/L (Normal) Range: 0-32 [...] Glucose, Serum 154 mg/dL (Abnormal) Range: 65-99 15-Cus-882215:12 LIPID PANEL (59842) Comments: PATIENT WAS FASTINGPERFORMED BY: CrownPeakCount includes the [facility] [id number] LDL/HDL Ratio 0.7 {ratio_units} (Normal) Range: 0.0-3.2 Comments: LDL/HDL Ratio Men Women 1/2 Avg.Risk 1.0 1.5 Av g.Risk 3.6 3.2 2X Avg.Risk 6.2 5.0 3X Avg.Risk 8.0 6.1 LDL Cholesterol Calc 49 mg/dL (Normal) Range: 0-99 VLDL Cholesterol Cesar 14 mg/dL (Normal) Range: 5-40 HDL Cholesterol 75 mg/dL (Normal) Triglycerides 68 mg/dL (Normal) Range: 0-149 Cholesterol, Total 138 mg/dL (Normal) Range: 100-199 72-Uin-512858:50 HgA1C , Office (51866) HgA1C , Office 6.7 % (Normal) Range: 4.6 - 7.1 07-Zyr-315784:36 VITAMIN B-12 (CYANOCOBALAMIN) Comments: PATIENT WAS FASTINGPERFORMED BY: [facility]RxPharmaEC[facility] [id number] (77635) Vitamin B12 802 pg/mL (Normal) Range: 211-946 34-Idu-389804:36 LIPID PANEL (27975) Comments: PATIENT WAS FASTINGPERFORMED BY: CrownPeakCount includes the [facility] [id number] LDL/HDL Ratio 0.8 {ratio_units} (Normal) Range: 0.0-3.2 [...] Cholesterol, Total 161 mg/dL (Normal) Range: 100-199 36-Zrr-954188:36 LDH (LD) (LACTATE DEHYDROGENASE) Comments: PATIENT WAS FASTINGPERFORMED BY: [employer] Gfpheu0466 [address] [id number] (75953) LDH 217 [iU]/L (Normal) Range: 119-226 30-Znc-656486:36 CBC W/AUTO DIFF WBC (61273) Comments: PATIENT WAS FASTINGPERFORMED BY: Micreos Xwwnvm0194 [address] [id number] Immature Grans (Abs) 0.0 {x10E3/uL} (Normal) Range: [...] 3.77-5.28 WBC 10.6 {x10E3/uL} (Normal) Range: 3.4-10.8 71-Zgj-615373:36 METABOLIC PANEL, COMPREHENSIVE Comments: PATIENT WAS FASTINGPERFORMED BY: LabCoP[facility] Medicine [facility] Medical CenterTsozep5128 [address] [id number] (77610) ALT (SGPT) 15 [iU]/L (Normal) Range: 0-32 [...] Glucose, Serum 137 mg/dL (Abnormal) Range: 65-99 13-Qtz-155707:36 TSH (83633) Comments: PATIENT WAS FASTINGPERFORMED BY: FilmTrack6[address] [id number] TSH 0.560 {uIU/mL} (Normal) Range: 0.450-4.500 :02 Renal function Panel (04506) Comments: PATIENT WAS FASTINGPERFORMED BY: FilmTrack[address] [id number] Albumin, Serum 3.7 g/dL (Normal) Range: 3.5-4.8 [...] 137 mg/dL (Abnormal) Range: 65-99 :02 MAGNESIUM (19836) Comments: PATIENT WAS FASTINGPERFORMED BY: [facility] [id number] Magnesium, Serum 2.2 mg/dL (Normal) Range: 1.6-2.3 :02 MICROALBUMIN: CREATININE RATIO Comments: PATIENT WAS FASTINGPERFORMED BY: [facility] [id number] (86778) AND (13818) Microalb/Creat Ratio 2038.7 {mg/g_creat} (Abnormal) Range: 0.0-30.0 Microalbumin, Urine 1223.2 ug/mL (Normal) Comments: Results confirmed ondilution. Creatinine, Urine 60.0 mg/dL (Normal) :02 CBC WITH MANUAL DIFF Comments: PATIENT WAS FASTINGPERFORMED BY: [facility] [id number] Information: [id number] (03552) Immature Grans (Abs) 0.0 {x10E3/uL} (Normal) Range: [...] {x10E3/uL} (Normal) Range: 3.4-10.8 :02 HGB A1C (67750) Comments: PATIENT WAS FASTINGPERFORMED BY: [employer] Gdquup[address] [id number] Hemoglobin A1c 6.4 % (Abnormal) Range: 4.8-5.6 Comments: . Pre-diabetes: 5.7 - 6.4 Diabetes: >6.4 Glycemic control for adults with diabetes: <7.0 :02 Lipid Panel (30232) Comments: PATIENT WAS FASTINGPERFORMED BY: [employer] Pdpodn[address] [id number] LDL/HDL Ratio 1.1 {ratio_units} (Normal) Range: 0.0-3.2 [...] Cholesterol, Total 160 mg/dL (Normal) Range: 100-199 :03 HgA1C , Office (69108) HgA1C , Office 6.1 % (Normal) Range: 4.6 - 7.1 :24 CBC W/AUTO DIFF WBC Comments: PATIENT WAS FASTINGPERFORMED BY: [facility]CoP[facility] CenterBcdyat9[address] [id number] Information: [id number] (23208) Immature Grans (Abs) 0.0 {x10E3/uL} (Normal) Range: [...] CREATININE RATIO Comments: PATIENT WAS FASTINGPERFORMED BY: [facility]Co[facility] CenterRffpyr[address] [id number] (47045) AND (30888) Microalb/Creat Ratio 1223.8 {mg/g_creat} (Abnormal) Range: 0.0-30.0 Microalbumin, Urine 1012.1 ug/mL (Abnormal) Range: 0.0-17.0 Comments: Results confirmed ondilution. Creatinine, Urine 82.7 mg/dL (Normal) Range: 15.0-278.0 :24 METABOLIC PANEL, COMPREHENSIVE Comments: PATIENT WAS FASTINGPERFORMED BY: [facility] [id number] (27418) ALT (SGPT) 12 [iU]/L (Normal) Range: 0-32 [...] mg/dL (Abnormal) Range: 65-99 :24 LIPID PANEL (33024) Comments: PATIENT WAS FASTINGPERFORMED BY: CrownPeakCount includes the [facility] [id number] LDL/HDL Ratio 1.1 {ratio_units} (Normal) Range: 0.0-3.2 [...] Cholesterol, Total 150 mg/dL (Normal) Range: 100-199 90-Vrd-48729:30 CBC W/Diff, Automated Comments: [facility] [address] [place], [address] Absolute Lymph 0.83 {X10_3/ul} (Normal) Range: 0.83-4.51 [...] (Normal) Range: 4.4-11.0 :30 Hemoglobin A1c Comments: [facility] Efetugcfgt[address] [place], [place], [address] HGB A1C 6.1 % (Normal) Range: 4.2-6.3 80-Mzt-74932:30 Magnesium Comments: [facility] Wnnsmgfatj[address] [place], [place], [address] MG 1.8 mg/dL (Normal) Range: 1.8-2.4 :30 Protein+Creatinine Ratio,Urine Comments: [facility] Vr[address]ec[address] [place], [place], [address] PROT:CRE RATIO 2121 {mg/g_CRE} (Abnormal) Range: 0-200 PROTEIN,UR.RAN. 164.2 mg/dL (Abnormal) UR CREAT 77.40 mg/dL (Normal) :30 Renal Profile Comments: [facility] Z[address]dljks[address] [place], [place], [address] CO2 27.0 mmol/L (Normal) Range: 21.0-32.0 CL [...] 126 mg/dLsuggests DIABETES MELLITUS per A.D.A. criteria. 57-Ssq-17034:00 24 HR UR Creatinine Clearance Comments: [facility] [address]ul[address] [place], [place], [address] CREAT CLEARANCE 24 ml/min (Abnormal) Range: 100-200 URINE CREAT 20.6 mg/dL (Normal) EST GFR - AA 38 mL/min (Abnormal) Comments: GFR Calc EST GFR 31 mL/min (Abnormal) Comments: Non- GFR Calc SERUM CREAT 1.7 mg/dL (Abnormal) Range: 0.6-1.0 UR TOTAL VOLUME 2800 mL (Normal) UR COLLECT TIME 24.0 {HOURS} (Normal) 32-Wsx-13580:00 Protein, Urine 24HR Comments: [facility] T[address]ham[address]xuf[address] [place], [place], [id number] 24hr UR PROTEIN 1178.8 {mg/24HR} (Abnormal) URINE PROTEIN 42.1 mg/dL (Abnormal) UR TOTAL VOLUME 2800 mL (Normal) UR COLLECT TIME 24.0 {HOURS} (Normal) 4-Vhu-842650:29 Metabolic Panel, Basic Comments: PATIENT NOT FASTINGPERFORMED BY: [facility]Co[facility] CenterVpuupp59[address] [id number] Information: [id number] (36176) Calcium, Serum 9.3 mg/dL (Normal) Range: 8.7-10.3 [...] Basic Comments: tuesday; PATIENT NOT FASTINGPERFORMED BY: [employer] [facility] [address] [id number] Information: [id number] (96310) Calcium, Serum 9.0 mg/dL (Normal) Range: 8.7-10.3 [...] Glucose, Serum 149 mg/dL (Abnormal) Range: 65-99 63-Qpg-585011:32 HgA1C , Office (32649) HgA1C , Office 6.2 % (Normal) Range: 4.6 - 7.1 :31 Rapid Strep Test, Office (85969) Comments: neg Rapid Strep Test, Office Negative (Normal) :06 THROAT CULTURE (24228) Comments: PATIENT NOT FASTINGPERFORMED BY: [facility] OptechMet[facility] Psychiatric CenterNomwst56[address] [id number] Information: [id number] Result 1 RRF (Normal) Comments: Routine respiratory luis Upper Respiratory Culture Final report (Normal) :52 TSH (23855) Comments: PATIENT WAS FASTINGPERFORMED BY: [facility] [id number] TSH 2.190 {uIU/mL} (Normal) Range: 0.450-4.500 :52 Vitamin D Hydroxy (93363) Comments: PATIENT WAS FASTINGPERFORMED BY: [facility]Co[facility] CenterNmljwm09[address] [id number] Vitamin D, 25-Hydroxy 43.8 ng/mL (Normal) Range: 30.0-100.0 Comments: Vitamin D deficiency has been defined by the [place] of[place]icine and an Endocrine Society practice guideline as alevel of serum 25-OH vitamin D less than 20 ng/mL (1,2).The Endocrine Society went on to further define vitamin Dinsufficiency as a level between 21 and 29 ng/mL (2).1. IOM ([place] of Medicine). 2010. Dietary reference intakes for calcium and D. [place]: The National Academies Press.2. Mira MF, Rosette NC, Tommy SWAIN, et al. Evaluation, treatment, and prevention of vitamin D deficiency: an Endocrine Society clinical practice guideline. JCEM. 2010; 96(7):1911-30. :52 LIPID PANEL (69289) Comments: PATIENT WAS FASTINGPERFORMED BY: [facility]Co[facility] CenterGrxhai10[address] [id number] LDL/HDL Ratio 1.3 {ratio_units} (Normal) Range: 0.0-3.2 [...] auto diff Comments: PATIENT WAS FASTINGPERFORMED BY: [facility] [id number] Information: [id number], [id number] (19020) Immature Grans (Abs) 0.0 {x10E3/uL} (Normal) Range: [...] PANEL, COMPREHENSIVE Comments: PATIENT WAS FASTINGPERFORMED BY: [facility] HospitalCoP[facility] CenterViratx56[address] [id number] (80579) ALT (SGPT) 19 [iU]/L (Normal) Range: 0-32 [...] Glucose, Serum 127 mg/dL (Abnormal) Range: 65-99 2-Lou-866559:08 HgA1C , Office (29820) HgA1C , Office 6.4 % (Normal) Range: 4.6 - 7.1 9-Wdl-073943:00 Creatinine Clearance Comments: PATIENT NOT FASTINGPERFORMED BY: [facility] Byytnz[address] [id number] Information: [id number] S TART Creatinine Clearance 33 mL/min (Abnormal) Range: 88-128 Comments: The above range is based on 1.73 square meter average body surfacearea. Creatinine, Ur 24hr 642.0 {mg/24_hr} (Abnormal) Range: 800.0-1800.0 Creatinine, Urine 34.7 mg/dL (Normal) Range: 15.0-278.0 eGFR If Africn Am 43 mL/min/1.73 (Abnormal) eGFR If NonAfricn Am 37 mL/min/1.73 (Abnormal) Creatinine, Serum 1.37 mg/dL (Abnormal) Range: 0.57-1.00 3-Qck-846731:00 Protein Total, Qn, 24-Hr Comments: PATIENT NOT FASTINGPERFORMED BY: [facility] Dwgglq[address] [facility] [id number] Urine Prot,24hr calculated 1309.8 {mg/24_hr} (Abnormal) Range: 30.0-150.0 Protein,Total,Urine 70.8 mg/dL (Abnormal) Range: 0.0-15.0 :01 CBC W/Diff, Automated Comments: Test performed at:[facility] Tubbpicigl[address] [place], [place] [address] Absolute Neut 3.1 {X10_3/uL} (Normal) Range: 2.0-7.7 [...] :01 Magnesium Comments: Test performed at:[facility] [address] [place] [address] MG 2.0 mg/dL (Normal) Range: 1.8-2.4 :01 Protein+Creatinine Ratio,Urine Comments: Test performed at:[facility] [address] [place] [address] PROT:CRE RATIO 2232 {mg/g_CRE} (Abnormal) Range: 0-200 PROTEIN,UR.RAN. 160.3 mg/dL (Abnormal) UR CREAT 71.8 mg/dL (Normal) :01 Renal Profile Comments: Test performed at:[facility] [address]vgj[address] [place] [address] CO2 32.0 mmol/L (Normal) Range: 21.0-32.0 CL [...] mg/dL (Normal) Range: 70-110 :08 LIPID PANEL (95020) Comments: PATIENT WAS FASTINGPERFORMED BY: [facility]Co[facility] CenterCrvmcq6[address] [id number] LDL/HDL Ratio 1.0 {ratio_units} (Normal) Range: 0.0-3.2 [...] Cholesterol, Total 149 mg/dL (Normal) Range: 100-199 61-Jne-39204:08 METABOLIC PANEL, Comments: PATIENT WAS FASTINGPERFORMED BY: [facility]Co[facility] CenterOvrbvm5[address] [id number] Information: [id number] COMPREHENSIVE (90947) ALT (SGPT) 29 [iU]/L (Normal) Range: 0-32 [...] (Abnormal) Range: 65-99 :59 HgA1C , Office (53777) HgA1C , Office 6.5 % (Normal) Range: 4.6 - 7.1 :54 CBC W/AUTO DIFF WBC Comments: PATIENT WAS FASTINGPERFORMED BY: [facility] [id number] Information: [id number] (19290) Immature Grans (Abs) 0.0 {x10E3/uL} (Normal) Range: [...] COMPREHENSIVE Comments: PATIENT WAS FASTINGPERFORMED BY: EVE Panjo[address] [id number]; non- emergent till apt (00699) ALT (SGPT) 13 [iU]/L (Normal) Range: 0-32 [...] mg/dL (Abnormal) Range: 65-99 :54 LIPID PANEL (77091) Comments: PATIENT WAS FASTINGPERFORMED BY: [employer] [id number] LDL/HDL Ratio 1.1 {ratio_units} (Normal) Range: 0.0-3.2 [...] (Normal) Range: 100-199 :29 HgA1C , Office (81065) HgA1C , Office 6.6 % (Normal) Range: 4.6 - 7.1 :12 CBC W/Diff, Automated Comments: Test performed at:[facility] [address]kfm[address] [place] [address] ; handled by Dr. Santana Absolute Lymph [...] :12 Magnesium Comments: Test performed at:[facility] [address] [place] [address] MG 2.0 mg/dL (Normal) Range: 1.8-2.4 :12 Microalb:Creat Ratio,Random UR Comments: Test performed at:[facility] [address] [place] [address] ; Dr. Angelo LING:CREAT 1483.0 {mg/g_CRE} (Abnormal) MICROALBUMIN,UR 918.0 mg/L (Normal) UR CREAT 61.9 mg/dL (Normal) :12 Renal Profile Comments: Test performed at:[facility] [address] [place] [address] CO2 29.0 mmol/L (Normal) Range: 21.0-32.0 CL [...] 126 mg/dLsuggests DIABETES MELLITUS per A.D.A. criteria. 24-Aac-621835:20 LIPID PANEL (18937) Comments: PATIENT WAS FASTINGPERFORMED BY: [facility] [id number] LDL/HDL Ratio 1.0 {ratio_units} (Normal) Range: 0.0-3.2 [...] Cholesterol, Total 151 mg/dL (Normal) Range: 100-199 10-Xty-666511:20 METABOLIC PANEL, Comments: PATIENT WAS FASTINGPERFORMED BY: [facility]SchoolP[facility] CenterFpbxns9[address] [id number] Information: [id number] COMPREHENSIVE (83763) ALT (SGPT) 16 [iU]/L (Normal) Range: 0-32 [...] Glucose, Serum 148 mg/dL (Abnormal) Range: 65-99 20-Squ-496399:21 CREATININE CLEARANCE Comments: PATIENT WAS FASTINGPERFORMED BY: [employer] [address] [id number] Information: [id number] START 04/02/14@9AM FINISH 04/03/14 6:00 AM (89873) Creatinine Clearance 42 mL/min (Abnormal) Range: 88-128 Comments: The above range is based on 1.73 square meter average body surfacearea. Creatinine, Ur 24hr 812.3 {mg/24_hr} (Normal) Range: 800.0-1800.0 Creatinine, Urine 28.5 mg/dL (Normal) Range: 15.0-278.0 eGFR If Africn Am 45 mL/min/1.73 (Abnormal) eGFR If NonAfricn Am 39 mL/min/1.73 (Abnormal) Creatinine, Serum 1.33 mg/dL (Abnormal) Range: 0.57-1.00 80-Asx-607162:21 Total Protein,24 Hour Urine Comments: PATIENT WAS FASTINGPERFORMED BY: [employer] [id number] (88176) Prot,24hr calculated 1559.0 {mg/24_hr} (Abnormal) Range: 30.0-150.0 Protein,Total,Urine 54.7 mg/dL (Abnormal) Range: 0.0-15.0 :57 LIPID PANEL (96852) Comments: PATIENT WAS FASTINGPERFORMED BY: [employer] [address] [id number] LDL/HDL Ratio 1.1 {ratio_units} (Normal) Range: 0.0-3.2 [...] MANUAL DIFF Comments: PATIENT WAS FASTINGPERFORMED BY: LabCo[facility] Medical CenterFxplfa5075 [address] [id number] Information: [id number] (75533) Immature Grans (Abs) 0.0 {x10E3/uL} (Normal) Range: [...] PANEL, COMPREHENSIVE Comments: PATIENT WAS FASTINGPERFORMED BY: [employer] [facility] [id number] (51918) ALT (SGPT) 10 [iU]/L (Normal) Range: 0-32 [...] 0 Comments: Result Units: mg/dL AdultPerformed at: [facility] [facility] [place], [place] [address]Bwf Director: Yousuf Bernardo PhD, Phone: [phone] C4 37 (Abnormal) Range: 9-36 0 [...] 75.6 mg/dL (Abnormal) CREU 49.3 mg/dL (Normal) 43-Krs-62341:21 CBC WITH MANUAL DIFF Comments: PATIENT WAS FASTINGPERFORMED BY: [facility] [id number] Information: [id number] (57020) Immature Grans (Abs) 0.0 {x10E3/uL} (Normal) Range: [...] 3.77-5.28 WBC 4.5 {x10E3/uL} (Normal) Range: 3.4-10.8 59-Ods-46349:21 METABOLIC PANEL, COMPREHENSIVE Comments: PATIENT WAS FASTINGPERFORMED BY: LabCo[facility] Medical CenterOshtty4166 [address] [id number] (50578) ALT (SGPT) 16 [iU]/L (Normal) Range: 0-32 [...] Glucose, Serum 132 mg/dL (Abnormal) Range: 65-99 :53 CREATININE CLEARANCE Comments: PATIENT NOT FASTINGPERFORMED BY: [employer] Hmbiuh9435 [facility] [id number] Information: [id number] START 10/30/13@8AM F INISH 10/31/13@8AM 2650ML (22157) Creatinine Clearance 44 mL/min (Abnormal) Range: 88-128 [...] Hour Urine Comments: PATIENT NOT FASTINGPERFORMED BY: [employer] [id number] (34104) Prot,24hr calculated 3458.3 {mg/24_hr} (Abnormal) Range: 30.0-150.0 Protein,Total,Urine 130.5 mg/dL (Abnormal) Range: 0.0-15.0 55-Duc-892540:31 HgA1C , Office (74624) HgA1C , Office 6.4 % (Normal) Range: 4.6 - 7.1 00-Wso-492044:27 Microscopic Examination Comments: PATIENT WAS FASTINGPERFORMED BY: TopSchoolRUSTOlblti0057 [address] [id number] Bacteria Few (Normal) Mucus Threads Present (Normal) Epithelial Cells (non renal) 0-10 {/hpf} (Normal) Range: 0 - 10 RBC 3-10 {/hpf} (Abnormal) Range: 0 - 2 WBC 6-10 {/hpf} (Abnormal) Range: 0 - 5 :32 LIPID PANEL (42071) Comments: PATIENT WAS FASTINGPERFORMED BY: [employer] [facility] [address] [id number] LDL/HDL Ratio 1.0 {ratio_units} (Normal) Range: 0.0-3.2 [...] CREATININE RATIO Comments: PATIENT WAS FASTINGPERFORMED BY: [facility]SchoolP[facility] Medical CenterZenroo3221 [address] [id number] (42337) AND (85176) Microalb/Creat Ratio 1998.9 {mg/g_creat} (Abnormal) Range: 0.0-30.0 Creatinine, Urine 73.4 mg/dL (Normal) Range: 15.0-278.0 Microalbumin, Urine 1467.2 ug/mL (Abnormal) Range: 0.0-17.0 :32 URINALYSIS, W/ MICRO (93913) Comments: PATIENT WAS FASTINGPERFORMED BY: [facility] [id number] Microscopic Examination See below: (Normal) Comments: Microscopic was indicated and was performed. Nitrite, Urine Negative (Normal) Urobilinogen,Semi-Qn 0.2 mg/dL (Normal) Range: 0.0-1.9 Bilirubin Negative (Normal) Occult Blood Trace (Abnormal) Ketones Negative (Normal) Glucose Negative (Normal) Protein 3+ (Abnormal) WBC Esterase Trace (Abnormal) Appearance Clear (Normal) Urine-Color Yellow (Normal) pH 6.5 (Normal) Range: 5.0-7.5 Specific [place] 1.015 (Normal) Range: 1.005-1.030 01-Inw-86130:32 CBC WITH MANUAL DIFF Comments: PATIENT WAS FASTINGPERFORMED BY: [facility]Co[facility] CenterMvqdqx2709 [address] [id number] Information: [id number] (38380) Immature Grans (Abs) 0.0 {x10E3/uL} (Normal) Range: [...] PANEL, COMPREHENSIVE Comments: PATIENT WAS FASTINGPERFORMED BY: [employer] [id number] (02294) ALT (SGPT) 16 [iU]/L (Normal) Range: 0-32 [...] B-12 (CYANOCOBALAMIN) Comments: PATIENT WAS FASTINGPERFORMED BY: [employer] [id number] (17085) Vitamin B12 >1999 pg/mL (Abnormal) Range: 211-946 39-Jtg-644793:01 HgA1C , Office (30216) HgA1C , Office 6.4 % (Normal) Range: 4.6 - 7.1 :37 METABOLIC PANEL, COMPREHENSIVE Comments: PATIENT WAS FASTINGPERFORMED BY: [employer] [id number] (99556) ALT (SGPT) 12 [iU]/L (Normal) Range: 0-32 [...] (Abnormal) Range: 65-99 :37 Vitamin D Hydroxy (33230) Comments: PATIENT WAS FASTINGPERFORMED BY: [employer] [id number] Vitamin D, 25-Hydroxy 47.4 ng/mL (Normal) Range: 30.0-100.0 Comments: Vitamin D deficiency has been defined by the [place] of[place]icine and an Endocrine Society practice guideline as alevel of serum 25-OH vitamin D less than 20 ng/mL (1,2).The Endocrine Society went on to further define vitamin Dinsufficiency as a level between 21 and 29 ng/mL (2).1. IOM ([place] of Medicine). 2010. Dietary reference intakes for calcium and D. [place]: The National AcademZeroCater Press.2. Mira MF, Rosette [place], oTmmy SWAIN, et al. Evaluation, treatment, and prevention of vitamin D deficiency: an Endocrine Society clinical practice guideline. JCEM. 2010; 96(7):1911-30. :37 LIPID PANEL (86563) Comments: PATIENT WAS FASTINGPERFORMED BY: [employer]6370 [employer] includes the [facility] [id number] LDL/HDL Ratio 1.2 {ratio_units} (Normal) Range: 0.0-3.2 [...] MANUAL DIFF Comments: PATIENT WAS FASTINGPERFORMED BY: [employer]6370 [facility] [id number] Information: [id number] (42014) Immature Grans (Abs) 0.0 {x10E3/uL} (Normal) Range: [...] Qn, 24-Hr Comments: PATIENT NOT FASTINGPERFORMED BY: [employer] Auayqh11[address] [id number] Information: ADD [id number] AND DRAW FEE 99 6660 VOLU[address] 2600 164LBS 5' '3 Urine Prot,24hr calculated 920.4 {mg/24_hr} Range: 30.0-150.0 (Abnormal) Protein,Total,Urine 35.4 mg/dL Range: 0.0-15.0 (Abnormal) : Written Authorization WAR (Normal) Comments: PATIENT NOT FASTINGPERFORMED BY: [employer] Ajhxmc3937 [facility] [id number] Comments: Written Authorization Received.Authorization received from Chiqui BRICEÑO LPN [id number] by Marleen Sharma :52 Metabolic Panel, Basic Comments: PATIENT NOT FASTINGPERFORMED BY: [employer] Ncipda1693 [address] [id number] Information: ADD [id number] AND DRAW FEE 99 6660 VOLU[address] 2600 164LBS 5' '3 (55778) Calcium, Serum 9.7 mg/dL (Normal) Range: 8.6-10.2 [...] mg/dL (Abnormal) Range: 65-99 :52 CREATININE CLEARANCE (29680) Comments: PATIENT NOT FASTINGPERFORMED BY: [employer] Expqpp8775 [address] [id number] Creatinine Clearance 46 mL/min (Abnormal) Range: 88-128 Comments: The above range is based on 1.73 square meter average body surfacearea. Creatinine, Ur 24hr 899.6 {mg/24_hr} (Normal) Range: 800.0-1800.0 Creatinine, Urine 34.6 mg/dL (Normal) Range: 15.0-278.0 :52 24 hour urine for Protein Comments: PATIENT NOT FASTINGPERFORMED BY: [employer] Zikpug8[address] [id number] (03598) Microalb/Creat Ratio 695.4 {mg/g_creat} (Abnormal) Range: 0.0-30.0 Microalbumin, Urine 240.6 ug/mL (Abnormal) Range: 0.0-17.0 0-Lua-386020:13 HgA1C , Office (46295) HgA1C , Office 6.3 % (Normal) Range: 4.6 - 7.1 :01 Blood Glucose , Office (23746) Blood Glucose , Office 162 (Normal) 17-Gce-740420:02 Microscopic Examination Comments: PATIENT NOT FASTINGPERFORMED BY: [facility] Odlmew5361 Willoughby RoadDublDeaconess Health System [id number] Bacteria Few (Normal) Mucus Threads Present (Normal) [...] Hebert M.D.October 19, 2012 at 2:42:14 PM [id number] Signed GP/GP If you are the referring physician and would like to consult [facility] theradiologist who provided this interpretation, please contact Yasmany Pond at [phone]. If this radiologist is unavailable, youwill be directed to another radiologist to assist. If y ou are a patient with a question regarding this report, pleasecontactyour referring physician directly. Professional Interpretation Provided By: [employer], Phone , These documents contain legally protected [...] or destructionofthese documents. Dictated on 10/19/121441 by Jose Hebert MDribed on 10/19/121442 by ITS IMPORTSign by Misael Hebert MD on 10/19/12 1444 Sign by: Misael Hebert MD 34-Ssg-207067:59 TSH (53265) Comments: PATIENT WAS FASTINGPERFORMED BY: [facility] [id number] TSH 1.230 {uIU/mL} (Normal) Range: 0.450-4.500 :59 LIPID PANEL (54949) Comments: PATIENT WAS FASTINGPERFORMED BY: [facility] [id number] LDL/HDL Ratio 0.5 {ratio_units} (Normal) Range: 0.0-3.2 LDL Cholesterol Calc 47 mg/dL (Normal) Range: 0-99 Cholesterol, Total 149 mg/dL (Normal) Range: 100-199 HDL Cholesterol 91 mg/dL (Normal) Comments: According to ATP-III Guidelines, HDL-C >59 mg/dL is considered anegative risk factor for CHD. Triglycerides 57 mg/dL (Normal) Range: 0-149 VLDL Cholesterol Cesar 11 mg/dL (Normal) Range: 5-40 32-Fyg-503414:02 URINALYSIS, W/ MICRO Comments: PATIENT NOT FASTINGPERFORMED BY: [facility] [id number] Information: [id number] (06040) Microscopic Examination See below: (Normal) Nitrite, Urine Negative (Normal) Bilirubin Negative (Normal) Urobilinogen,Semi-Qn 0.2 mg/dL (Normal) Range: 0.0-1.9 Occult Blood Negative (Normal) Ketones Negative (Normal) Glucose Negative (Normal) Protein 3+ (Abnormal) WBC Esterase Negative (Normal) Appearance Clear (Normal) Urine-Color Yellow (Normal) pH 5.5 (Normal) Range: 5.0-7.5 Specific [place] 1.015 (Normal) Range: 1.005-1.030 :59 CBC WITH MANUAL DIFF Comments: PATIENT WAS FASTINGPERFORMED BY: [facility] [id number] Information: [id number] (04122) Immature Grans (Abs) 0.0 {x10E3/uL} (Normal) Range: [...] 3.77-5.28 WBC 4.8 {x10E3/uL} (Normal) Range: 3.4-10.8 98-Dir-998084:59 METABOLIC PANEL, COMPREHENSIVE Comments: PATIENT WAS FASTINGPERFORMED BY: [facility]Co[facility] CenterXfxgnb9614 [address] [id number] (88248) ALT (SGPT) 14 [iU]/L (Normal) Range: 0-32 [...] Glucose, Serum 104 mg/dL (Abnormal) Range: 65-99 2-Jyt-924594:37 HgA1C , Office (92926) HgA1C , Office 6.0 % (Normal) Range: 4.6 - 7.1 9-Qvu-619207:31 CRE CREAT 1.3 mg/dL (Abnormal) Range: 0.6-1.0 :00 BRAIN W/WO [...] Galan M.D.August 09, 2012 at 2:38:03 PM [id number] Signed PV/PV If you are the referring physician and would like to consult with theradiologist who provided this interpretation, please contact Donna Burnett M.D. at [phone]. If this radiologist is unavailable, youwillbe directed to another radiologist to assist. If you are a patient with a question regarding this report, pleasecontactyour referring physician evelyne carreractly. Professional Interpretation Provided By: [employer], Phone , These documents contain legally protected [...] 08/09/12 1441 Sign by: Donna Martin MD [id number] CBC with manual diff Comments: PATIENT NOT FASTINGPERFORMED BY: [facility] [id number] [facility] [id number] Information: [id number] ([id number]) Immature Grans (Abs) 0.0 {x10E3/uL} (Normal) Range: [...] 3.77-5.28 WBC 3.2 {x10E3/uL} (Abnormal) Range: 4.0-10.5 [id number]-028145:31 Metabolic Panel, Comprehensive Comments: PATIENT NOT FASTINGPERFORMED BY: [facility] [facility]tuwcy[address] [id number] (94941) ALT (SGPT) 19 [iU]/L (Normal) Range: 0-32 [...] mg/dL (Abnormal) Range: 65-99 :31 LIPID PANEL (53625) Comments: PATIENT WAS FASTINGPERFORMED BY: [facility] [id number] LDL/HDL Ratio 0.8 {ratio_units} (Normal) Range: 0.0-3.2 [...] MANUAL DIFF Comments: PATIENT WAS FASTINGPERFORMED BY: [facility]Digly[address] [id number] Information: [id number] (66956) Immature Grans (Abs) 0.0 {x10E3/uL} (Normal) Range: [...] PANEL, COMPREHENSIVE Comments: PATIENT WAS FASTINGPERFORMED BY: [facility]Co[facility] CenterHpxjtc[address] [id number] (85824) ALT (SGPT) 22 [iU]/L (Normal) Range: 0-32 [...] (Abnormal) Range: 65-99 :45 HgA1C , Office (49512) HgA1C , Office 6.1 % (Normal) Range: 4.6 - 7.1 65-Blw-350744:16 CRE CREAT 1.1 mg/dL (Abnormal) Range: 0.6-1.0 93-Izb-61145:00 BRAIN W/WO CONTRAST Radiology Report See Note [...] Galan M.D.February 02, 2012 at 5:10:18 PM [id number] Signed PV/PV If you are the referring physician and w sarahild like to consult with theradiologist who provided this interpretation, please contact Donna Burnett M.D. at [phone]. If this radiologist is unavailable, youwillbe directed to another radiol ogist to assist. If you are a patient with a question regarding this report, pleasecontactyour referring physician directly. Professional Interpretation Provided By: [employer], Phone ,Fa x [phone] These documents contain legally protected and confidential [...] destructionofthese documents. Dictated on 02/02/12 1255 by Mario MANN,DonnaTranscribed on 02/02/12 1713 by ITS IMPORTSign by Donna Martin MD on 02/02/12 1714 S ign by: Donna Martin MD 70-Ens-310113:16 DEXA BONE DENSITY STUDY (HP) Radiology Report [...] Coronel M.D.January 20, 2012 at 2:43:46 PM [phone] Signed KERA/KERA If you ar e the referring physician and would like to consult with theradiologist who provided this interpretation, please contact Gerardo Parnell. at . If this radiologist is unavailable,youw [...] on 01/20/121446 Sign by: David Coronel MD 09-Rep-726515:15 BILAT SCRN DIGITAL & CAD Radiology Report [...] Coronel M.D.January 20, 2012 at 1:20:11 PM [phone] Signed KERA/KERA If you are the referring physician and would like to consult with theradiologist who provided this interpretation, please contact Yasmany Parnell at . If this radiologist is unavailable,youwill be directed to another radiologist to assist. If you are a patient with a question regarding this report, pleasecontactyour referring physician directly. Professional Interpretation Provided By: [employer], Phone , These documents contain legally protected [...] 01/20/12 1324 Sign by: David Coronel MD 7-Meg-524564:56 PELVIC (NON ) Radiology Report See Note [...] Vuong M.D.January 10, 2012 at 8:39:09 PM [id number] Signed JL/JOHNNY If you are the referring physician and would like to consult with theradiologist who provided this inte rpretation, please contact Radha Vuong M.D. at [phone]. If this radiologist is unavailable, you will bedirected to another radiologist to assist. If you are a patient with a question regarding this r eport, pleasecontactyour referring physician directly. Professional Interpretation Provided By: [employer], Phone , PROCEDURE: ULTRASOUND OF THE FEMALE [...] Vuong M.D.January 10, 2012 at 8:40:07 PM [id number] Signed JL/JL If you are the referring physician and would like to consult with theradiologist who provided this interpretation, please contact Radha Vuong M.D. at [phone]. If this radiologist is unavailable, you will bedirected to another radiologist to assist. If you are a patient with a question regarding this report, pleasecontactyour referring ph ysician directly. Professional Interpretation Provided By: [employer], Phone , These documents contain legally protected [...] destructionofthese documents. Dictated on 01/10/12 1309 by Matthew VUONG MD ribed on 01/11/12 1113 by ITS IMPORTSign by RADHA VUONG MD on 01/11/12 1114 Sign by: RADHA VUONG MD :35 MICROALBUMIN: CREATININE RATIO Comments: PATIENT WAS FASTINGPERFORMED BY: [facility] Jjszsj[address] [id number] (73655) AND (34470) Microalb/Creat Ratio 829.4 {mg/g_creat} (Abnormal) Range: 0.0-30.0 Microalbumin, Urine 437.1 ug/mL (Abnormal) Range: 0.0-17.0 Creatinine, Urine 52.7 mg/dL (Normal) Range: 15.0-278.0 :35 CBC WITH MANUAL DIFF Comments: PATIENT WAS FASTINGPERFORMED BY: [facility]Co Cvkrfn[address] [id number] Information: [id number] (75851) Immature Grans (Abs) 0.0 {x10E3/uL} (Normal) Range: [...] 3.77-5.28 WBC 3.7 {x10E3/uL} (Abnormal) Range: 4.0-10.5 06-Jvn-15231:35 METABOLIC PANEL, COMPREHENSIVE Comments: PATIENT WAS FASTINGPERFORMED BY: [facility]Co[facility] CenterQlnhmb7[address] [id number] (20369) ALT (SGPT) 15 [iU]/L (Normal) Range: 0-32 [...] mg/dL (Abnormal) Range: 65-99 :35 LIPID PANEL (18961) Comments: PATIENT WAS FASTINGPERFORMED BY: [facility]School[facility] CenterBcpiun30[address] [id number] LDL/HDL Ratio 0.9 {ratio_units} (Normal) Range: 0.0-3.2 LDL Cholesterol Calc 72 mg/dL (Normal) Range: 0-99 HDL Cholesterol 83 mg/dL (Normal) Comments: According to ATP-III Guidelines, HDL-C >59 mg/dL is considered anegative risk factor for CHD. VLDL Cholesterol Cesar 18 mg/dL (Normal) Range: 5-40 Triglycerides 90 mg/dL (Normal) Range: 0-149 Cholesterol, Total 173 mg/dL (Normal) Range: 100-199 :15 HgA1C , Office (11524) HgA1C , Office 6.2 % (Normal) Range: 4.6 - 7.1 :30 CBC WITH MANUAL DIFF Comments: PATIENT WAS FASTINGPERFORMED BY: [facility]SchoolP[facility] CenterKnjcyc7[address] [id number] Information: [id number] (96199) Immature Grans (Abs) 0.0 {x10E3/uL} (Normal) Range: [...] 3.77-5.28 WBC 4.2 {x10E3/uL} (Normal) Range: 4.0-10.5 45-Rxr-99478:30 METABOLIC PANEL, COMPREHENSIVE Comments: PATIENT WAS FASTINGPERFORMED BY: [facility]CoP[facility] CenterOpeqys[address] [id number] (68332) ALT (SGPT) 19 [iU]/L (Normal) Range: 0-40 [...] mg/dL (Abnormal) Range: 65-99 :30 LIPID PANEL (91789) Comments: PATIENT WAS FASTINGPERFORMED BY: [facility]Co[facility] CenterIznbms69[address] [id number] LDL/HDL Ratio 0.9 {ratio_units} (Normal) Range: 0.0-3.2 [...] 100-199 Comments: Please note reference interval change 82-Fvj-816803:48 Rapid Flu (14519 x 2) Influenza A Ag negative (Normal) [...] redmond M.D.November 05, 2011 at 3:25:08 PM [id number] Signed GP/GP If you are the referring physician and would like to consult with theradiologist who provided this interpretation, please contact Yasmany Pond at [phone]. If this radiologist is unavailable, youwill be directed to another radiologist to assist. If you are a patient with a question regarding this report, ple asecontactyour referring physician directly. Professional Interpretation Provided By: [employer], Phone , These documents contain legally protected [...] redmond M.D.November 05, 2011 at 3:25:08 PM [id number] Signed GP/GP If you are the referring physician and would like to consult with theradiologist who provided this interpretation, please contact Yasmany Pond at [phone]. If this radiologist is unavailable, youwill be directed to another radiologist to assist. If you are a patient with a question regarding this report, ple asecontactyour referring physician directly. Professional Interpretation Provided By: [employer], Phone , These documents contain legally protected [...] 11/05/11 1552 Sign by: Misael Hebert MD 90-Aqp-763615:20 METABOLIC PANEL, Comments: PATIENT WAS FASTINGPERFORMED BY: [facility]CoP[facility] CenterDxjckv[address] [id number] Information: [id number],2ND ORDER NO DRAW F EE COMPREHENSIVE (71656) ALT (SGPT) 31 [iU]/L (Normal) Range: 0-40 [...] Glucose, Serum 155 mg/dL (Abnormal) Range: 65-99 88-Oup-71415:49 Creatinine Clearance Comments: PATIENT WAS FASTINGPERFORMED BY: EVE [facility] Zmktaa[address] [id number] Information: 10/30@6AM 10/31@730AM Creatinine Clearance 58 mL/min [...] Qn, 24-Hr Comments: PATIENT WAS FASTINGPERFORMED BY: [facility] Vdjkjy[address] [place] [id number] Urine Prot,24hr calculated 1023.8 {mg/24_hr} (Abnormal) Range: 30.0-150.0 Protein,Total,Urine 52.5 mg/dL (Abnormal) Range: 0.0-15.0 :04 HgA1C , Office (64186) HgA1C , Office 6.1 % (Normal) Range: [...] regarding this repor t, please call our 43G3wvamazg line @ Dictated on 07/27/11 1040 by GAYE PEREZ MD RTranscribed on 07/28/11 122 by ITS IMPORTSign by GAYE PEREZ MD on 07/28/115 Sign by: GAYE PEREZ MD 03-Egg-74697:54 Vitamin D Hydroxy (20244) Comments: PATIENT WAS FASTINGPERFORMED BY: [facility]CoP[facility] CenterHilahv7[address] [id number] Vitamin D, 25-Hydroxy 48.8 ng/mL (Normal) Range: 30.0-100.0 Comments: Vitamin D deficiency has been defined by the [place] of[place]icine and an Endocrine Society practice guideline as alevel of serum 25-OH vitamin D less than 20 ng/mL (1,2).The Endocrine Society went on to further define vitamin Dinsufficiency as a level between 21 and 29 ng/mL (2).1. IOM ([place] of Medicine). 2010. Dietary reference intakes for calcium and D. [place]: The National Academies Press.2. Mira MF, Rosette LOPEZ, Tommy SWAIN, et al. Evaluation, treatment, and prevention of vitamin D deficiency: an Endocrine Society clinical practice guideline. JCEM. 2010; 96(7):1911-30. :54 LIPID PANEL (91975) Comments: PATIENT WAS FASTINGPERFORMED BY: [employer] LabLogisticare[address] [facility] [id number] LDL/HDL Ratio 1.0 {ratio_units} (Normal) Range: 0.0-3.2 [...] MANUAL DIFF Comments: PATIENT WAS FASTINGPERFORMED BY: LabCoMIT Energy InitiativeKdpdti4[address] [id number] Information: ADD [id number] AND DRAW FEE 99 9291 (56077) Immature Grans (Abs) 0.0 {x10E3/uL} (Normal) Range: [...] 3.77-5.28 WBC 4.3 {x10E3/uL} (Normal) Range: 4.0-10.5 02-Vwd-66390:54 METABOLIC PANEL, COMPREHENSIVE Comments: PATIENT WAS FASTINGPERFORMED BY: [facility]Co[facility] CenterGzcbcv33[address] [id number] (33199) ALT (SGPT) 48 [iU]/L (Abnormal) Range: 0-40 [...] (Abnormal) Range: 65-99 :18 HgA1C , Office (84048) HgA1C , Office 6.1 % (Normal) Range: 4.6 - 7.1 :18 Blood Glucose , Office (92370) Blood Glucose , Office 103 (Normal) 30-Zkn-29793:00 ABDOMEN WITH AND W/O CONTRAST Radiology Report [...] radiologist regarding this report, please call our 88O7sueuyob line @ Dictated on 03/18/11 1715 by Jennie Pugh MDieTranscribed on 03/22/11 1401 by ITS IMPORTSign by Jeanette Hill MD on 03/22/11 1402 Sign by: Jeanette Pugh MD 11-Awj-774452:29 SERUM CRE & GFR CREAT,SERUM 1.1 mg/dL (Abnormal) Range: 0.6-1.0 36-Clo-41557:00 BRAIN W/WO CONTRAST Radiology Report See Note [...] seen in the right frontal white matter material specialist ior to themasswithout interval change. The cortical [...] 03/02/11 1330 by Mario MANN,DonnaTranscribed on 03/02/11 172 by ITS IMPORTSign by Mario MANN,Donna on 03/02/111729 Sign by: Donna Martin MD 17-Fqq-75529:00 UPPER EXT. JOINT ONLY(ROUTINE) Radiology Report See [...] 1107 by Serge Pugh MDranscribed on 02/17/11 120 by ITS IMPORTSign by Jeanette Pguh MD on 02/17/11 120 Sign by: Jeanette [...] on 01/29/111715 Sign by: Aakash Barbosa MD 64-Uon-00504:44 ABDOMEN/PELVIS WITH CONTRAST Radiology Report See Note [...] 02/01/11 1021 Sign by: ALEJANDRO DRUMMOND DO 01-Ijo-708672:57 SINUS/FACIAL BONE Radiology Report See Note (Normal) [...] on 01/19/11 1447 by ITS IMPORTSign by Singh MANN,Misael on 01/19/11 1448 Sign by: Misael Hebert MD 95-Anq-53177:00 BRAIN W/WO CONTRAST Radiology Report See Note [...] addition, there is a small region of yggqzyjevB8whfmbcxpgt along the anterior margin of the mass, [...] on 01/19/111650 Sign by: GAYE PEREZ MD 44-Hhe-32910:00 BRAIN/HEAD W/WO CONTRAST Radiology Report See Note [...] 01/19/11 1447 Sign by: Misael Hebert MD 65-Mka-435484:08 BILAT SCRN DIGITAL & CAD Radiology Report [...] suspiciousa bnormality. Dictated on 01/18/11 1317 by Singh MANN,JasbirrieleTranscribed on 01/19/11 0848 by ITS IMPORTSign by Misael Hebert MD on 01/19/11 0849 Sign by: Misael Hebert MD 09-Jun-20119:20 MICROALBUMIN: CREATININE RATIO Comments: PATIENT NOT FASTINGPERFORMED BY: [facility]Co Ljjelu4448 XekoCount includes the [facility] [id number] (43795) AND (26605) Microalb/Creat Ratio 1028.4 {mg/g_creat} (Abnormal) Range: 0.0-30.0 Microalbumin, Urine 1341.0 ug/mL (Abnormal) Range: 0.0-17.0 Creatinine, Urine 130.4 mg/dL (Normal) Range: 15.0-278.0 :20 CBC WITH MANUAL DIFF (63094) Comments: PATIENT NOT FASTINGPERFORMED BY: Torrecom PartnersCoRUSTDvnrsc1671 Samaritan HospitalTaiga BiotechnologiesCount includes the [facility] [id number] Immature Grans (Abs) 0.0 {x10E3/uL} (Normal) Range: [...] {x10E3/uL} (Normal) Range: 4.0-10.5 :20 LIPID PANEL (36696) Comments: PATIENT NOT FASTINGPERFORMED BY: EVE [facility] [id number] LDL/HDL Ratio 0.9 {ratio_units} (Normal) Range: 0.0-3.2 [...] PANEL, COMPREHENSIVE Comments: PATIENT NOT FASTINGPERFORMED BY: EVE LabCoP[facility] Medicine [facility] CenterIdinvh27[address] [facility] [id number] (45031) ALT (SGPT) 28 [iU]/L (Normal) Range: 0-40 [...] (Abnormal) Range: 65-99 :39 HgA1C , Office (59853) HgA1C , Office 6.5 % (Normal) Range: 4.6 - 7.1 :39 Blood Glucose , Office (24225) Blood Glucose , Office 128 (Normal) 6-Kmw-171011:19 CBC With Differential/Platelet Comments: PATIENT WAS FASTINGPERFORMED BY: LabCoP[facility] Medicine [facility] CenterJfscil27[address] [id number] Immature Grans (Abs) 0.0 {x10E3/uL} (Normal) Range: [...] 3.80-5.10 WBC 5.6 {x10E3/uL} (Normal) Range: 4.0-10.5 3-Upj-733745:19 Comp. Metabolic Panel (14) Comments: PATIENT WAS FASTINGPERFORMED BY: LabCoP[facility] Medicine [facility] CenterGscsle[address] [id number]; appt 10/10/11 ALT (SGPT) 18 [iU]/L (Normal) Range: 0-40 [...] Glucose, Serum 113 mg/dL (Abnormal) Range: 65-99 6-Bbk-197778:19 Lipid Panel With LDL/HDL Comments: PATIENT WAS FASTINGPERFORMED BY: LabCo Eyshni[address] [id number] Ratio LDL/HDL Ratio 1.0 {ratio_units} Range: 0.0-3.2 [...] 0.800 {uIU/mL} Comments: PATIENT WAS FASTINGPERFORMED BY: [facility]okalyyis [facility] [id number] 2:19 (Normal) Range: 0.450-4.500 Vitamin D, 25-Hydroxy 44.0 ng/mL (Normal) Comments: PATIENT WAS FASTINGPERFORMED BY: [facility]okalyy[facility] [id number] 2:19 Range: 32.0-100.0 Comments: Effective February 22, 2011 Vitamin D, 25-Hydroxy reference intervals will be changing to 30-100. .Recent studies consider the lower li sandra of 32.0 ng/mL to be athreshold for optimal health.Otf HAYES. J Nutr. 2004;135(2):317-22. 77-Hnj-128018:54 HgA1C , Office (76320) HgA1C , Office 6.6 % (Normal) Range: 4.6 - 7.1 :54 Blood Glucose , Office (77380) Blood Glucose , Office 134 (Normal) 3-Gep-350876:40 Creatinine Clearance Comments: PERFORMED BY: [employer] [address] [id number] Information: 10/07@7AM 10/08@3AM Creatinine Clearance 56 mL/min [...] Protein Total, Qn, 24-Hr Comments: PERFORMED BY: [employer] [place] [id number] Urine Prot,24hr calculated 610.5 {mg/24_hr} (Abnormal) Range: 30.0-150.0 Protein,Total,Urine 40.7 mg/dL (Abnormal) Range: 0.0-15.0 :46 Vitamin D Hydroxy (92232) Comments: PATIENT WAS FASTINGPERFORMED BY: [employer] [place] [id number] Vitamin D, 25-Hydroxy 36.5 ng/mL (Normal) Range: 32.0-100.0 Comments: Recent studies consider the lower limit of 32.0 ng/mL to be athreshold for optimal health.tOf HAYES. J Nutr. 2004;135(2):317-22. :46 METABOLIC PANEL, COMPREHENSIVE Comments: PATIENT WAS FASTINGPERFORMED BY: [employer]6370 [employer]oCount includes the [facility] [id number] (60665) ALT (SGPT) 34 [iU]/L (Normal) Range: 0-40 [...] mg/dL (Abnormal) Range: 65-99 :46 LIPID PANEL (31447) Comments: PATIENT WAS FASTINGPERFORMED BY: [employer] [id number] LDL Cholesterol Calc 85 mg/dL (Normal) Range: [...] MANUAL DIFF Comments: PATIENT WAS FASTINGPERFORMED BY: MicreosPenn Medicine [facility] Medical CenterXrwnij86[address] [id number] Information: [id number]; appt 10/12/10 (92016) Immature Grans (Abs) 0.0 {x10E3/uL} (Normal) Range: [...] 3.80-5.10 WBC 5.5 {x10E3/uL} (Normal) Range: 4.0-10.5 1-Vie-097104:07 HgA1C , Office (00629) HgA1C , Office 6.6 % (Normal) Range: 4.6 - 7.1 :07 Blood Glucose , Office (29957) Blood Glucose , Office 114 (Normal) 89-Jcy-691787:00 Creatinine Clearance Comments: PERFORMED BY: EVE [facility] Povkqg5517 [facility] [id number] Information: 12/31@8AM 01/01@4AM Creatinine Clearance 48 mL/min [...] Creatinine, Serum 1.20 mg/dL (Abnormal) Range: 0.57-1.00 16-Ojj-502070:00 Protein Total, Qn, 24-Hr Comments: PERFORMED BY: [facility] [id number] Urine Prot,24hr calculated 1070.6 {mg/24_hr} (Abnormal) Range: 30.0-150.0 Protein,Total,Urine 79.3 mg/dL (Abnormal) Range: 0.0-15.0 26-Lhx-688824:48 BILAT SCRN DIGITAL & CAD Radiology Report See Note (Normal) Comments: Exam Number: [id number] MAMMOGRAPHY - BILATERAL SCREENING INDICATION:Routine annual screening [...] of attaching a ResultCode to this exam.ADDENDUM: [id number] HPBI/MDS Reported By: MISAEL HEBERT 06-Ryz-540816:48 DEXA BONE DENSITY STUDY (HP) Radiology Report See Note (Normal) Comments: Exam Number: [id number] CLINICAL:This is a 69-year-old female patient with postmenopausal screening. EXAMINATION:DUAL ENERGY X-RAY ABSORPTIOMETRY / DEXA. TECHNIQUE:Bone Density Measurements (BMD) of lumb ar spine and bilateral hipswere obtained using a [employer] scanner.. COMPARISON:None. FINDINGS: Lumbar Spine (L1-L4): g/cm2 [...] Osteoporosis Foundation http://www.nof.org Reported By: MISAEL HEBERT 44-Yri-183326:29 HgA1C , Office (01458) HgA1C , Office 6.5 % (Normal) Range: 4.6 - 7.1 99-Blk-253752:29 Blood Glucose , Office (40573) Blood Glucose , Office 109 (Normal) 56-Rva-02914:05 CBC With Differential/Platelet Comments: PATIENT WAS FASTINGPERFORMED BY: [facility] Mjegzl[address] [id number] Immature Grans (Abs) 0.0 {x10E3/uL} (Normal) Range: [...] Panel (14) Comments: PATIENT WAS FASTINGPERFORMED BY: NBD Nanotechnologies IncBarnes-[facility] [id number] ALT (SGPT) 20 [iU]/L (Normal) Range: 0-40 [...] With LDL/HDL Comments: PATIENT WAS FASTINGPERFORMED BY: [employer] [address] [id number] Ratio HDL Cholesterol 54 mg/dL (Normal) Comments: [...] ng/mL (Normal) Comments: PATIENT WAS FASTINGPERFORMED BY: [employer]6[address] [facility] [id number] :05 Range: 32.0-100.0 Comments: Recent studies consider the lower limit of 32.0 ng/mL to be athreshold for optimal health.Otf HAYES. J Nutr. 2004;135(2):317-22. 02-Sdl-21707:41 SPLEEN (HP) Radiology Report See Note (Normal) Comments: Exam Number: [id number] ULTRASOUND OF THE SPLEEN A goal directed [...] Protein, 0.5 mg/L (Normal) Comments: PERFORMED BY: [employer] [id number] 10:54 Quant Range: 0.0-4.9 17-Jun-2009 Hemoglobin A1c 6.3 % (Abnormal) Comments: PERFORMED BY: [employer] [id number] 10:54 Range: 4.8-5.6 Comments: Increased risk for diabetes: 5.7 - 6.4Diabetes: >6.4Glycemic control for adults with diabetes: <7.0.Please note reference interval change 17-Jun-2009 Sedimentation 4 mm/h (Normal) Comments: PERFORMED BY: [employer] [facility] [id number] 10:54 Rate-Westergren Range: 0-30 17-Jun-2009 Vitamin B12 1372 pg/mL Comments: PERFORMED BY: Panjo70 [facility]itan HospitalTaiga BiotechnologiesCount includes the [facility] [id number] 10:54 (Abnormal) Range: 211-911 Comments: Effective July 14, 2009, Vitamin B12 will bechanging to the [employer] ECLIA methodology. Thereference interval will be changing to:211 - 946 pg/mL 17-Jun-2009 Vitamin D, 25-Hydroxy 37.7 ng/mL Comments: PERFORMED BY: [employer] [id number] 10:54 (Normal) Range: 32.0-100.0 Comments: Recent studies consider the lower limit of 32.0 ng/mL to be athreshold for optimal health.Otf HAYES. J Nutr. 2004;135(2):317-22. 32-Tck-028098:34 Vitamin D Hydroxy Comments: PATIENT NOT FASTINGPERFORMED BY: [employer] [id number] Information: [id number],2ND ORDER NO DRAW F EE (38433) Vitamin D, 25-Hydroxy 48.5 ng/mL (Normal) Range: 30.0-100.0 Comments: Vitamin D deficiency has been defined by the [place] of[place]icine and an Endocrine Society practice guideline as alevel of serum 25-OH vitamin D less than 20 ng/mL (1,2).The Endocrine Society went on to further define vitamin Dinsufficiency as a level between 21 and 29 ng/mL (2).1. IOM ([place] of Medicine). 2010. Dietary reference intakes for calcium and D. [place]: The National Academies Press.2. Mira MF, Rosette [place], Tommy SWAIN, et al. Evaluation, treatment, and prevention of vitamin D deficiency: an Endocrine Society clinical practice guideline. JCEM. 2010; 96(7):1911-30. :50 HgA1C , Office (90300) HgA1C , Office 6.7 % (Normal) Range: 4.6 - 7.1 :50 Blood Glucose , Office (72236) Blood Glucose , Office 117 (Normal) :12 CBC With Differential/Platelet Comments: PERFORMED BY: [facility] [id number] Information: 06/10@6AM3/10@330 Hematology Comments: Note: (Normal) Comments: [...] 3.80-5.10 WBC 3.6 {x10E3/uL} (Abnormal) Range: 4.0-10.5 37-Jll-719962:12 Comp. Metabolic Panel (14) Comments: PERFORMED BY: EVE Swipp Wazapx18[address] [id number] Alkaline Phosphatase, S 68 [iU]/L (Normal) Range: [...] Glucose, Serum 124 mg/dL (Abnormal) Range: 65-99 43-Hhv-794222:12 Creatinine Clearance Comments: PERFORMED BY: EVE [employer] [id number] Creatinine Clearance 49 mL/min (Abnormal) Range: 88-128 Comments: The above range is based on 1.73 square meter average body surfacearea. Creatinine, Ur 24hr 800.0 {mg/24_hr} (Normal) Range: 800.0-1800.0 Creatinine, Urine 40.0 mg/dL (Normal) Range: 15.0-278.0 97-Eoo-311312:12 Lipid Panel With LDL/HDL Comments: PERFORMED BY: Panjo[address] [id number] Ratio HDL Cholesterol 61 mg/dL (Normal) Comments: According to ATP-III Guidelines, HDL-C >59 mg/dL is considered anegative risk factor for CHD. LDL Cholesterol Calc 74 mg/dL (Normal) Range: 0-99 LDL/HDL Ratio 1.2 {ratio_units} (Normal) Range: 0.0-3.2 VLDL Cholesterol Cesar 17 mg/dL (Normal) Range: 5-40 Cholesterol, Total 152 mg/dL (Normal) Range: 100-199 Triglycerides 87 mg/dL (Normal) Range: 0-149 72-Owg-284043:12 Protein Total, Qn, 24-Hr Comments: PERFORMED BY: Panjo[address] [id number] Urine Prot,24hr calculated 1172.0 {mg/24_hr} Range: 30.0-150.0 (Abnormal) Protein,Total,Urine 58.6 mg/dL (Abnormal) Range: 0.0-15.0 TSH 1.280 {uIU/mL} Comments: PERFORMED BY: [facility]SchoolP[facility] Medicine [facility] CenterRdttkl9[address] [id number] 1:12 (Normal) Range: 0.450-4.500 :58 HgA1C , Office (92914) HgA1C , Office 6.0 % (Normal) Range: 4.6 - 7.1 :58 Blood Glucose , Office (04556) Blood Glucose , Office 113 (Normal) 0-Rbz-296446:03 CBC With Differential/Platelet Comments: PATIENT WAS FASTINGPERFORMED BY: EVE TopSchoolPenn Medicine [facility] CenterJtlety9[address] [id number] Baso (Absolute) 0.0 {x10E3/uL} (Normal) Range: 0.0-0.2 [...] 11.7-15.0 WBC 3.2 {x10E3/uL} (Abnormal) Range: 4.0-10.5 1-Qry-086269:03 Comp. Metabolic Panel (14) Comments: PATIENT WAS FASTINGPERFORMED BY: [facility] [id number] A/G Ratio 2.0 (Normal) Range: 1.1-2.5 Albumin, [...] Glucose, Serum 116 mg/dL (Abnormal) Range: 65-99 2-Lso-734433:03 Lipid Panel With LDL/HDL Comments: PATIENT WAS FASTINGPERFORMED BY: [facility] CenterXlijwa[address] [id number] Ratio Cholesterol, Total 167 mg/dL (Normal) Range: [...] ng/mL (Normal) Comments: PATIENT WAS FASTINGPERFORMED BY: [facility] [employer] Pewibq[address] [id number] :03 Range: 32.0-100.0 Comments: Recent studies consider the lower limit of 32.0 ng/mL to be athreshold for optimal health.Otf HAYES. J Nutr. 2004;135(2):317-22. 59-Uxp-651131:32 Urinalysis, Office (27839) UA - BILIRUBIN Negative (Normal) UA - BLOOD Hemolyzed Trace (Normal) UA - GLUCOSE Negative (Normal) UA - KETONES Negative mg/dL (Normal) UA - LEUKOCYTE ESTERASE Negative (Normal) UA - NITRITE Negative (Normal) UA - PH 6.5 (Normal) UA - PROTEIN 300 mg/dL (Normal) UA - SPECIFIC GRAVITY 1.020 (Normal) URINE UROBILINGN JATINDER TIMED 2 mg/dL (Normal) 5-Hrm-682351:19 URINE SETH CULTURE-JATINDER COL Comments: PATIENT NOT FASTINGClinical Information: SRC:UR ADD [id number] PERFORMED BY: [facility] Rcdyih[address] [id number] COUNT (56152) Result 1 ECV (Normal) Comments: Escherichia coli, [...] report (Normal) Culture,Comprehensiv e 09-Jan-20098:17 Urinalysis, Office (14311) UA - BILIRUBIN Negative (Normal) UA - BLOOD Hemolyzed Large (Normal) UA - GLUCOSE Negative (Normal) UA - KETONES Negative mg/dL (Normal) UA - LEUKOCYTE ESTERASE Moderate (Normal) UA - NITRITE Negative (Normal) UA - PH 7.0 (Normal) UA - PROTEIN 300 mg/dL (Normal) UA - SPECIFIC GRAVITY 1.020 (Normal) URINE UROBILINGN JATINDER TIMED 2 mg/dL (Normal) 4-Lsn-060845:05 Comp. Metabolic Panel (14) Comments: PATIENT WAS FASTINGPERFORMED BY: [facility] [id number] A/G Ratio 1.7 (Normal) Range: 1.1-2.5 Albumin, [...] Panel (7) Comments: PATIENT WAS FASTINGPERFORMED BY: [facility] [id number] Bilirubin, Direct 0.12 mg/dL (Normal) Range: 0.00-0.40 :05 Lipid Panel With LDL/HDL Comments: PATIENT WAS FASTINGPERFORMED BY: [place] [address] [id number] Ratio Cholesterol, Total 170 mg/dL (Normal) Range: 100-199 HDL Cholesterol 63 mg/dL (Normal) Comments: According to ATP-III Guidelines, HDL-C >59 mg/dL is considered anegative risk factor for CHD. LDL Cholesterol Calc 91 mg/dL (Normal) Range: 0-99 LDL/HDL Ratio 1.4 {ratio_units} Range: 0.0-3.2 (Normal) Triglycerides 80 mg/dL (Normal) Range: 0-149 VLDL Cholesterol Cesar 16 mg/dL (Normal) Range: Phosphorus, Serum 4.1 mg/dL (Normal) Comments: PATIENT WAS FASTINGPERFORMED BY: [facility] [id number] :05 Range: 2.5-4.5 PTH, Intact 19 pg/mL (Normal) Comments: PATIENT WAS FASTINGPERFORMED BY: [facility] [id number] :05 Range: 15-65 Vitamin D, 25-Hydroxy 38.9 ng/mL (Normal) Comments: PATIENT WAS FASTINGPERFORMED BY: [facility] [id number] :05 Range: 32.0-100.0 Comments: Recent studies consider the lower limit of 32.0 ng/mL to be athreshold for optimal health.Otf HAYES. J Nutr. 2004;135(2):317-22. 1-Oie-517167:40 HgA1C , Office (74781) HgA1C , Office 6.0 % (Normal) Range: 4.6 - 7.1 :40 Blood Glucose , Office (97605) Blood Glucose , Office 109 (Normal) :42 CBC With Differential/Platelet Comments: PATIENT WAS FASTINGPERFORMED BY: [facility]Co[facility] CenterGlclee5[address] [id number] Baso (Absolute) 0.0 {x10E3/uL} (Normal) Range: 0.0-0.2 [...] Panel (14) Comments: PATIENT WAS FASTINGPERFORMED BY: [facility] CenterSielus[address] [id number] A/G Ratio 1.6 (Normal) Range: 1.1-2.5 Albumin, [...] Sodium, Serum 140 mmol/L (Normal) Range: 135-145 1-Isv-275462:09 FECAL OCCULT HGB ASSAY, QUAL, 1-3 SIMULTANEOUS DETERMINATIONS (24837) FECAL OCCULT HGB ASSAY, QUAL, 1-3 SIMULTANEOU neg (Normal) :42 Microscopic Examination Comments: PATIENT WAS FASTINGPERFORMED BY: [facility] Uxdkli[address] [id number] Bacteria None seen (Normal) Cast Type Hyaline casts (Normal) Casts Present {/lpf} (Abnormal) Epithelial Cells (non renal) 0-10 {/hpf} (Normal) Range: 0 - 10 Mucus Threads Present (Normal) RBC 0-3 {/hpf} (Normal) Range: 0 - 3 WBC 0-5 {/hpf} (Normal) Range: 0 - 5 :42 URINALYSIS W/O MICRO (63013) Comments: PATIENT WAS FASTINGPERFORMED BY: [facility] [id number] Appearance Clear (Normal) Bilirubin Negative (Normal) Glucose Negative (Normal) Ketones Negative (Normal) Microscopic Examination See below: (Normal) Nitrite, Urine Negative (Normal) Occult Blood Negative (Normal) pH 5.0 (Normal) Range: 5.0-7.5 Protein 1+ (Abnormal) Specific [place] 1.013 (Normal) Range: 1.005-1.030 Urine-Color Yellow (Normal) Urobilinogen,Semi-Qn 0.2 mg/dL (Normal) Range: 0.0-1.9 WBC Esterase 1+ (Abnormal) :42 MICROALBUMIN: CREATININE RATIO Comments: PATIENT WAS FASTINGPERFORMED BY: [facility] the [facility] [id number] (57390) AND (03731) Creatinine, Urine 76.1 mg/dL (Normal) Range: 15.0-278.0 Microalb/Creat Ratio 292.1 {ug/mg_creat} (Abnormal) Range: 0.0-30.0 Microalbumin, Urine 222.3 ug/mL (Abnormal) Range: 0.0-17.0 :42 CBC WITH MANUAL DIFF (19221) Comments: PATIENT WAS FASTINGClinical Information: ADD DRAW FEE 136987 ADD J 44660 PERFORMED BY: [facility] the [facility] [id number] Baso (Absolute) 0.0 {x10E3/uL} (Normal) Range: 0.0-0.2 [...] PANEL, COMPREHENSIVE Comments: PATIENT WAS FASTINGPERFORMED BY: [facility] CenterRtuihp59[address] [id number] (80493) A/G Ratio 1.8 (Normal) Range: 1.1-2.5 Albumin, [...] Sodium, Serum 141 mmol/L (Normal) Range: 135-145 8-Gaq-494742:23 HgA1C , Office (75219) HgA1C , Office 6.0 % (Normal) Range: 4.6 - 7.1 4-Iga-306032:23 Blood Glucose , Office (14881) Blood Glucose , Office 103 (Normal) 08-Ehn-548311:38 CBC WITH MANUAL DIFF (88181) Comments: PATIENT WAS FASTINGClinical Information: ADD DRAW FEE 857663 ADD J 79813 PERFORMED BY: LabCoErin [place] 29025[address] [id number] Baso (Absolute) 0.0 {x10E3/uL} (Normal) Range: 0.0-0.2 [...] 11.7-15.0 WBC 4.0 {x10E3/uL} (Normal) Range: 4.0-10.5 89-Rmi-869672:38 METABOLIC PANEL, COMPREHENSIVE Comments: PATIENT WAS FASTINGPERFORMED BY: [facility] CenterHxuppo036[address] [id number] (76024) A/G Ratio 1.8 (Normal) Range: 1.1-2.5 Albumin, [...] Sodium, Serum 142 mmol/L (Normal) Range: 135-145 99-Wog-181454:38 HEPATIC FUNCTION PANEL Comments: PATIENT WAS FASTINGPERFORMED BY: [facility] [id number] (87385) Bilirubin, Direct 0.08 mg/dL (Normal) Range: 0.00-0.40 02-Iqe-241520:38 LIPID PANEL (25111) Comments: PATIENT WAS FASTINGPERFORMED BY: [facility] [id number] Cholesterol, Total 200 mg/dL (Abnormal) Range: 100-199 [...] Cholesterol Cesar 18 mg/dL (Normal) Range: 5-40 3-Ibc-726619:36 HgA1C , Office (22519) HgA1C , Office 6.1 % (Normal) Range: 4.6 - 7.1 1-Mrv-149367:36 Blood Glucose , Office (33897) Blood Glucose , Office 98 (Normal) 99-Ozi-308569:33 CBC With Differential/Platelet Comments: PATIENT WAS FASTINGClinical Information: SRC:UR PERFORMED BY: EVE [facility]Co[facility] CenterEjpwyx36[address] [id number] Baso (Absolute) 0.0 {x10E3/uL} (Normal) Range: 0.0-0.2 [...] 11.7-15.0 WBC 4.8 {x10E3/uL} (Normal) Range: 4.0-10.5 25-Bsm-419278:33 Comp. Metabolic Panel (14) Comments: PATIENT WAS FASTINGPERFORMED BY: EVE [facility]Co[facility] CenterMewkeh[address] [id number] A/G Ratio 1.6 (Normal) Range: 1.1-2.5 Albumin, [...] Serum 92 mg/dL (Normal) Range: 65-99 If -Egyptian 57 mL/min/1.73 Comments: Note: Persistent reduction for [...] Sodium, Serum 142 mmol/L (Normal) Range: 135-145 56-Fap-721280:33 Lipid Panel With LDL/HDL Comments: PATIENT WAS FASTINGPERFORMED BY: [facility] CenterSocovh76[address] [id number] Ratio Cholesterol, Total 174 mg/dL (Normal) Range: 100-199 HDL Cholesterol 67 mg/dL (Normal) Comments: According to ATP-III Guidelines, HDL-C >59 mg/dL is considered anegative risk factor for CHD. LDL Cholesterol Calc 85 mg/dL (Normal) Range: 0-99 LDL/HDL Ratio 1.3 {ratio_units} (Normal) Range: 0.0-3.2 Triglycerides 110 mg/dL (Normal) Range: 0-149 VLDL Cholesterol Cesar 22 mg/dL (Normal) Range: 5-40 28-Tli-492564:33 Urine Culture,Comprehensive Comments: PATIENT WAS FASTINGPERFORMED BY: [facility] CenterAsryxm96[address] [id number] Antimicrobial MIHEAD (Normal) Comments: S = Susceptible; [...] Enterococcus. (Normal) Urine Final report (Normal) Culture,Comprehensive 6-Ixb-807892:10 HgA1C , Office (52693) HgA1C , Office 5.9 % (Normal) Range: [...] mL (Normal) URINE PROTEIN 20.0 mg/dL (Abnormal) 56-Job-472703:17 Urine Culture,Comprehensive Comments: Clinical Information: SRC:UR PERFORMED BY: [employer] [facility] [address] [id number] Result 1 CNSNSS (Normal) Comments: Coagulase negative Staphylococcus species, not Staphylococcussaprophyticus.600 Colonies/mLSusceptibility or resistance of staphylococci to oxacillin predictssusceptibility or resistance to (a) other be fm-klxmrfwjo-tbehgovmbhritdidh such as cloxacillin and dicloxacillin, (b) combinationsof a penicillin and a beta-lactamase inhibitor, and(c) anti- staphylococcal cephalosporins. Routine testing of otherp enicillins, beta-lactam/beta-lactamase inhibitor combinations,cephems, and carbapenems is not advised by the CLSI Standards(G058-Z68, 2005). S = Susceptible; I = Intermediate; R = Resistant * P = Positive; N = Negative MICS are expressed in micrograms per mL Antibiotic RSLT#1 RSLT#2 RSLT#3 RSLT#4Ciprofloxacin RGentami kristian SLevofloxacin RNitrofurantoin SOxacillin SPenicillin RRifampin STrimethoprim/Sulfa SVancomycin S Urine Final report Culture,Comprehensi (Normal) ve 9-Xge-861515:53 Metabolic Panel, Basic (52934) Comments: PATIENT NOT FASTINGClinical Information: ADD DRAW FEE 989798 ADD J 89623 PERFORMED BY: [facility] [facility] [address] [id number] BUN 39 mg/dL (Abnormal) Range: 5-26 BUN/Creatinine Ratio 33 (Abnormal) Range: 8-27 Calcium, Serum 9.8 mg/dL (Normal) Range: 8.5-10.6 Carbon Dioxide, Total 22 mmol/L (Normal) Range: 20-32 Chloride, Serum 103 mmol/L (Normal) Range: 97-108 Creatinine, Serum 1.20 mg/dL (Abnormal) Range: 0.57-1.00 Glom Filt Rate, Est 45 mL/min/1.73 Range: 60-128 (Abnormal) Glucose, Serum 101 mg/dL (Abnormal) Range: 65-99 If -Egyptian 55 mL/min/1.73 Range: 60-128 (Abnormal) Comments: Note: Persistent reduction for 3 months or more in an eGFR<60 mL/min/1.73 m2 defines CKD. Patients with eGFR values>/=60 mL/min/1.73 m2 may also have CKD if evidence of persistentproteinuria is present. Additional information may be found [email or web address].org. Potassium, Serum 5.1 mmol/L (Normal) Range: 3.5-5.2 Sodium, Serum 139 mmol/L (Normal) Range: 135-145 :09 HgA1C , Office (39809) HgA1C , Office 6.1 % (Normal) Range: 4.6 - 7.1 :09 Blood Glucose , Office (33825) Blood Glucose , Office 163 (Normal) :37 SPINE,LUMBAR (ROUTINE) Radiology Report See Note (Normal) Comments: Exam Number: [id number] MRI LUMBAR SPINE CLINICAL STATEMENTLow back pain [...] onboth sides. Reported By: MODESTA COPE M.D. 54-Zjv-047722:00 [facility] Radiology Report See Note (Normal) Comments: Exam Number: [id number] MAMMOGRAM, BILATERAL SCREENING DIGITAL AND CAD HISTORYRoutine screening. Full field digital images were obtained in mediolateral oblique andcraniocaudal projections. CAD images w ere reviewed. The current study is [facility] to [facility]. A small metal marker is placed on [...] mammograms werealso examined with computer-aided detection software ([employer], [employer], [employer] Reported By: DONNA OJEDA M.D. 47-Xkm-821161:59 DEXA BONE DENSITY STUDY (HP) Radiology Report See Note (Normal) Comments: Exam Number: [id number] BONE DENSITOMETRY HISTORYPost menopausal. TECHNIQUE Bone densitometry [...] Report See Note (Normal) Comments: Exam Number: [id number] FIVE VIEW LUMBAR SPINE AP, lateral, both [...] Randm Ur Comments: PATIENT NOT FASTINGPERFORMED BY: [employer]6370 [facility] includes the [facility] [id number] Creatinine, Urine 46.8 mg/dL (Normal) Microalb/Creat Ratio 712.8 {ug/mg_creat} (Abnormal) Range: 0.0-30.0 Microalbum.,U,Random 333.6 ug/mL (Abnormal) Range: 0.0-17.0 :13 Creatinine Clearance Comments: PATIENT NOT FASTINGClinical Information: HT-5'4'' WT-184 PERFORMED BY: [facility] includes the [facility] [id number] Creatinine Clearance 40 mL/min (Abnormal) Range: 88-128 Comments: The above range is based on 1.73 square meter average body surfacearea. Creatinine, Serum 1.30 mg/dL (Normal) Range: 0.50-1.50 Creatinine, Ur 24hr 754.8 {mg/24_hr} Range: 800.0-1800.0 (Abnormal) Creatinine, Urine 44.4 mg/dL (Normal) Glom Filt Rate, Est 41 mL/min (Abnormal) Range: 60-128 If -Egyptian 50 mL/min (Abnormal) Range: 60-128 Comments: Note: Persistent reduction for 3 months or more in an eGFR<60 mL/min/1.73 m2 defines CKD. Patients with eGFR values>/=60 mL/min/1.73 m2 may also have CKD if evidence of persistentproteinuria is present. .Additional information may be found at www.[email or web address]. 05-Sep-20079:13 Protein Total, Qn, 24-Hr Comments: PATIENT NOT FASTINGPERFORMED BY: [facility] CenterVnbiue[address] [id number] Urine Protein,Total,Urine 49.0 mg/dL (Abnormal) Range: 0.0-15.0 Prt, 24hr calculated 833.0 {mg/24_hr} (Abnormal) Range: 30.0-150.0 17-Hgm-484372:00 CBCD,SMEAR DIFF CELLS COUNTED 100 (Normal) EOS [...] T PROT 6.6 g/dL (Normal) Range: 6.4-8.2 :00 D BILI 0.06 mg/dL (Normal) Range: 0.00-0.30 :00 LIPID CHOL 175 mg/dL (Normal) Comments: <200 [...] mg/dL VLDL 12 mg/dL (Normal) Range: 5-40 :00 TSH 0.84 {uIU/mL} (Normal) Range: 0.34-4.82 Plan [...] skin Planned Observations CBC with auto diff (38697)Indication: Diabetes mellitus type II, controlled On: 37-Zay-103744:22 Request HGB A1C (88507)Indication: Diabetes mellitus type II, controlled On: :21 Request METABOLIC PANEL, COMPREHENSIVE (72285)Indication: Chronic kidney disease, stage 3 On: 88-Gxp-866734:21 Request LIPID PANEL (04806)Indication: Other and unspecified hyperlipidemia On: 26-Rkc-989339:21 Request Vitamin D Hydroxy (17923)Indication: Vitamin D deficiency On: 27-Xoc-882773:21 Request PARATHORMONE (87298)Indication: Chronic kidney disease, stage 3 On: 06-Mar-20188:59 Request Comments: fax to [phone] MICROALBUMIN: CREATININE RATIO (73293) AND (42798)Indication: Chronic kidney disease, stage 3 On: 06-Mar-20188:55 Request Comments: fax to [phone] RENAL FUNCTION PANEL (22153)Indication: Chronic kidney disease, stage 3 On: :54 Request Comments: fax to [phone] MAGNESIUM (21892)Indication: Chronic kidney disease, stage 3 On: 06-Mar-20188:54 Request Comments: fax to [phone] Parathyroid Hormone-related Peptide (PTH-rP) (58677)Indication: Chronic kidney disease, stage 3 On: 06-Mar-20188:54 Request Comments: fax to [phone] CBC W/AUTO DIFF WBC (68894)Indication: Chronic kidney disease, stage 3 On: 68-Qgc-845986:25 Request Parathyroid Hormone-related Peptide (PTH-rP) (57165)Indication: Vitamin D deficiency On: 7-Nkn-550637:43 Request Comments: send results to Dr. Santana fax: [phone] VITAMIN D, 1, 25-DIHYDROXY (77129)Indication: Vitamin D deficiency On: 1-Hrv-764967:42 Request Comments: send results to Dr. Santana fax: [phone] Clostridium difficile Toxin A+B, EIA (11438)Indication: Chronic diarrhea On: 8-Mnt-186784:36 Request Vitamin D Hydroxy (91857)Indication: Osteopenia On: 3-Til-263693:20 Request CBC W/AUTO DIFF WBC (04749)Indication: Hypertension, benign On: 8-Pzd-066859:16 Request CALCIFEDIOL (29422)Indication: Chronic kidney disease, stage 3 On: :04 Request Renal function Panel (93366)Indication: Chronic kidney disease, stage 3 On: :04 Request Magnesium (88124)Indication: Chronic kidney disease, stage 3 On: :04 Request MICROALBUMIN: CREATININE RATIO (37654) AND (60805)Indication: Chronic kidney disease, stage 3 On: :04 Request Parathyroid Hormone-related Peptide (PTH-rP) (91391)Indication: Chronic kidney disease, stage 3 On: :04 Request T4, FREE (THYROXINE) (32529)Indication: Cold feeling On: :31 Request TSH (03019)Indication: Cold feeling On: :31 Request PARATHORMONE (09081)Indication: Chronic kidney disease, stage 3 On: 89-Vxs-57484:18 Request Comments: copy to Dr. Santana [phone] CALCIFIDIOL (87352) VIT D 25Indication: Chronic kidney disease, stage 3 On: 14-Fpz-58522:16 Request Comments: copy to Dr. Santana [phone] MAGNESIUM (49425)Indication: Chronic kidney disease, stage 3 On: 11-Bpg-17259:15 Request Comments: copy to Dr. Santana [phone] PROTEIN/CREAT RATIO, URINE (31789)Indication: Chronic kidney disease, stage 3 On: 54-Uca-35136:15 Request Comments: copy to Dr. Santana [phone] LIPID PANEL (52044)Indication: Mixed hyperlipidemia On: 58-Lxo-804346:21 Request CBC with auto diff (55224)Indication: Diabetes mellitus type II, controlled On: 15-Brk-795560:20 Request METABOLIC PANEL, COMPREHENSIVE (10387)Indication: Diabetes mellitus type II, controlled On: 84-Pad-907057:20 Request HGB A1C (62106)Indication: Diabetes mellitus type II, controlled On: 46-Wsq-657034:10 Request Vitamin D Hydroxy (33289)Indication: Osteopenia On: 63-Bfi-406299:08 Request TSH (THYROID STIMULATING HORMONE) (60568)Indication: Depression On: 72-Cfb-363355:06 Request LIPID PANEL (73242)Indication: Other and unspecified hyperlipidemia On: 00-Bqd-908649:06 Request CBC with auto diff (54162)Indication: Diabetes mellitus type II, controlled On: 05-Dxc-410196:06 Request METABOLIC PANEL, COMPREHENSIVE (27887)Indication: Diabetes mellitus type II, controlled On: 56-Qdc-906591:06 Request CREATININE CLEARANCE (62592)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 On: 9-Scs-359372:38 Request Total Protein,24 Hour Urine (16090)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 On: 9-Wbs-392686:38 Request CBC W/AUTO DIFF WBC (83703)Indication: Diabetes mellitus type II, controlled On: 86-Dwj-193934:11 Request HgA1C , Office (22042)Indication: Diabetes mellitus type II, controlled On: 06-Rgh-051712:23 Request CULTURE, SPUTUM (69479)Indication: Cough On: 26-Bgm-314803:47 Request HEPATIC FUNCTION PANEL (95949)Indication: Elevated LFTs On: 77-Qrw-20889:24 Request CREATININE CLEARANCE (90413)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 On: 71-Ucp-71169:33 Request 24 hour urine for Protein (92698)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 On: :33 Request CBC WITH MANUAL DIFF (08162)Indication: Diabetes mellitus type II, controlled On: :29 Request METABOLIC PANEL, COMPREHENSIVE (07517)Indication: Diabetes mellitus type II, controlled On: 55-Nzb-848082:29 Request LIPID PANEL (62037)Indication: Mixed hyperlipidemia On: 07-Jqp-486741:29 Request CREATININE CLEARANCE (64072)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 On: 3-Hll-934718:45 Request 24 hour urine for Protein (73028)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 On: 0-Haj-117595:45 Request CREATININE CLEARANCE (00579)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 On: 89-Tku-310672:57 Request 24 hour urine for Protein (41431)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 On: 06-Mlb-376147:57 Request METABOLIC PANEL, COMPREHENSIVE (10065)Indication: Hypertension, benign On: :32 Request LIPID PANEL (55425)Indication: Mixed hyperlipidemia On: :32 Request C-REACTIVE PROTEIN (26834)Indication: Fatigue On: :24 Request SED RATE ERYTHROCYTE (23333)Indication: Headache On: :24 Request VITAMIN B-12 (CYANOCOBALAMIN) (09229)Indication: Fatigue On: :24 Request LIPID PANEL (39046)Indication: Mixed hyperlipidemia On: :41 Request CBC WITH MANUAL DIFF (68217)Indication: Hypertension, benign On: :41 Request METABOLIC PANEL, COMPREHENSIVE (73205)Indication: Hypertension, benign On: :41 Request CREATININE CLEARANCE (98072)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 On: :34 Request 24 hour urine for Protein (76670)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 On: 9-Gpb-469580:34 Request LIPID PANEL (06771)Indication: Mixed hyperlipidemia On: 6-Wlq-130314:22 Request HEPATIC FUNCTION PANEL (54165)Indication: Mixed hyperlipidemia On: 5-Lfk-343730:22 Request Vitamin D Hydroxy (10995)Indication: Hypercalcemia On: 7-Tqm-003242:22 Request PHOSPHORUS (44585)Indication: Hypercalcemia On: 1-Rgl-698681:22 Request PARATHORMONE (45229)Indication: Hypercalcemia On: 5-Xtj-533625:22 Request METABOLIC PANEL, COMPREHENSIVE (28635)Indication: Hypercalcemia On: 5-Xim-542184:22 Request CBC WITH MANUAL DIFF (07658)Indication: fsgs On: 4-Byh-782150:58 Request LIPID PANEL (11468)Indication: Mixed hyperlipidemia On: 0-Ryf-197375:58 Request METABOLIC PANEL, COMPREHENSIVE (01073)Indication: Hypertension, benign On: 0-Nfv-338040:58 Request Blood Glucose , Office (23856)Indication: Diabetes mellitus type II, controlled On: 9-Qru-011783:10 Request TSH (91545)Indication: Diabetes mellitus type II, controlled On: 48-Hnm-087019:51 Request METABOLIC PANEL, COMPREHENSIVE (80111)Indication: Diabetes mellitus type II, controlled On: :51 Request CBC WITH MANUAL DIFF (38823)Indication: Diabetes mellitus type II, controlled On: :51 Request MICROALBUMIN: CREATININE RATIO (11614) AND (84616)Indication: Diabetes mellitus type II, controlled On: :51 Request HEPATIC FUNCTION PANEL (65195)Indication: Other and unspecified hyperlipidemia On: :51 Request LIPID PANEL (52374)Indication: Other and unspecified hyperlipidemia On: 51 Request HgA1C , Office (53090)Indication: Diabetes mellitus type II, controlled On: :37 Request Blood Glucose , Office (20696)Indication: Diabetes mellitus type II, controlled On: :37 Request Planned Procedures DRAIN/INJECT MAJOR JOINT OR BURSA On: 13-Mar-2018 Intent ()By: SHONDA Andrade Comments: 2 cc Marcaine lot# [id number] exp: 1 cc Kenalog lot# [id number] exp DRAIN/INJECT MAJOR JOINT OR BURSA On: 07-Feb-2018 Intent ()By: Keri Singh MD Comments: lot no [id number] exp date 2017-12-26 DRAIN/INJECT MAJOR JOINT OR BURSA On: 31-Jan-2018 Intent ()By: Keri Singh MD Comments: Lot#[id number]:0-53-61Afzyf:intra articular Site given:left knee Given By: Dr. Singh [facility] signed DRAIN/INJECT MAJOR JOINT OR BURSA On: 24-Jan-2018 Intent ()By: Keri Singh MD Comments: Lot#[id number]: 5-49-04Mamvr:intra artciular Site given:left knee Given By: Dr. Singh ABN signed Euflexxa Echo CompleteBy: Fast DO, Chaparrita A On: 16-Dec-2017 Intent Fast DO, Chaparrita A Flu Vaccine (Quadrivalent) [id number]: On: 16-Dec-2017 Intent Fast DO, Chaparrita A Fast DO, Chaparrita A Comments: Lot: #[id number]: 10/01/18Site: L dltd, IMDose prefilled syringegiven by: Jamie reviewed and ABN signed Kenalog Injection, 10 mgm On: 03-Oct-2017 Intent (J3301)By: Keri Singh MD Comments: lot: [id number]: 11/20site/route: L knee Cartoid DopplerBy: Fast DO, Chaparrita A On: 12-Sep-2017 Intent Fast DO Chaparrita A Comments: november DIGITAL TOMOSYNTHESIS OF On: 12-Sep-2017 Intent BREAST (93769)By: Case Albrecht DOa A Comments: due november 02 Ambrocio WOLFF, Chaparrita A Kenalog Injection, 10 mgm On: 06-Jun-2017 Intent (J3301)By: Keri Singh MD Comments: bupivacacine 0.5% [id number] exp 09-20 kenalog 40 mg injected in. [id number] 07-21 MRI OF BRAIN WITH AND WITHOUT On: 06-Jun-2017 Intent CONTRAST (67656)By: Case Albrecht DOa A Fast DO, Chaparrita A ELECTROCARDIOGRAM, COMPLETE (ECG) On: 06-Jun-2017 Intent (77344)By: Ambrocio WOLFF Chaparrita A Fast Comments: ekg [...] 10-May-2017 Intent 1000 CC (Special Coverage Comments: lot:[id number]:IV left anticub dose:1000ml given by:eliazar HUMPHREY signedER, MEDICAL INSURANCE CLAIMS SPECIALIST Instructions Apply. See [facility]: 2048) ([id number])By: Ambrocio WOLFF Chaparrita A Fast DO, Chaparrita A Radiology - Chest- PA and LatBy: On: 05-May-2017 Intent Keri Singh MD Aerosol Treatment ([id number])By: On: 05-May-2017 Intent Keri Singh MD Radiology - ChestBy: Francisco MANN, On: 05-May-2017 Intent Keri Alonzo Comments: call wet read DRAIN/INJECT MAJOR JOINT OR BURSA On: 28-Feb-2017 Intent ()By: Keri Singh MD Comments: 1 cc Kenelog #[id number] Marcaine #[id number] Kenalog Injection, 10 mgm On: 28-Feb-2017 Intent ([id number])By: Keri Singh MD ELECTROCARDIOGRAM, COMPLETE (ECG) On: 10-Jan-2017 Intent ([id number])By: Chaparrita Albrecht DO Comments: ekg showed normal sinus rhythym, normal axis, no acute st/t wave changes Chaparrita WOLFF Flu Vaccine (Quadrivalent) [id number]: On: 27-Dec-2016 Intent SHONDA Andrade DRAIN/INJECT MAJOR JOINT OR BURSA On: 20-Aug-2016 Intent ()By: Keri Singh MD DRAIN/INJECT MAJOR JOINT OR BURSA On: 13-Aug-2016 Intent ()By: SHONDA Andrade Comments: lot: [id number]:intra articular dose:2ml given by:Dr. Francisco HUMPHREY signedER, MEDICAL INSURANCE CLAIMS SPECIALIST injection #3 DOPPLER ULTRASOUND OF RIGHT CAROTID On: 10-Aug-2016 Intent ARTERY ([id number])By: Case Albrecht DOa A Comments: end of october Ambrocio DO, Chaparrita A DEXA SCAN AXIAL SKELETON ([id number])By: On: 10-Aug-2016 Intent Ambrocio WOLFF Chaparrita A Fast DO, Chaparrita A Comments: end october SCREENING DIGITAL TOMOSYNTHESIS OF On: 10-Aug-2016 Intent BREAST ([id number])By: Case Albrecht DOa A Comments: end of october Ambrocio WOLFF, Chaparrita A DRAIN/INJECT MAJOR JOINT OR BURSA On: 06-Aug-2016 Intent ()By: Keri Singh MD DRAIN/INJECT INTERMED JOINT/BURSA On: 06-Aug-2016 Intent ()By: SHONDA Andrade Comments: lot:[id number]:left knee dose:2mlgiven by:Dr. Francisco HUMPHREY signedER, MEDICAL INSURANCE CLAIMS SPECIALIST injection number 2 Venous Doppler - LeftBy: Ambrocio WOLFF, On: 03-Aug-2016 Intent Chaparrita A Fast DO, Chaparrita A Comments: This is set up for August 05 at 11am- spoke with Rina in cv. DRAIN/INJECT INTERMED JOINT/BURSA On: 30-Jul-2016 Intent ()By: Keri Singh MD Comments: lot:[id number]:intra articular left knee dose: 2ml given by: Dr. Singh ABN signedER, MEDICAL INSURANCE CLAIMS SPECIALIST injection #1 Radiology - Knee - LeftBy: Fast DO, On: 26-May-2016 Intent Chaparrita A Fast DO, Chaparrita A Flu Vaccine (Quadrivalent) [id number]: On: 27-Jan-2016 Intent Fast DO, Chaparrita A Fast DO, Chaparrita A Comments: Lot #:[id number] date:10/01/16mount given:0.5mlRoute: IMSite given: left deltoidGiven by: CARMELINA Hook ADMINISTRATION OF INFLUENZA VIRUS On: 27-Jan-2016 Intent VACCINE ([id number])By: Fast DO, Chaparrita A Fast DO, Chaparrita A DOPPLER ULTRASOUND OF RIGHT CAROTID On: 22-Oct-2015 Intent ARTERY ([id number])By: Fast DO, Chaparrita A Fast DO, Chaparrita A MAMMOGRAM, SCREENING, BOTH BREAST On: 22-Oct-2015 Intent ([id number])By: Fast DO, Chaparrita A Fast DO, Chaparrita A Ultrasound - RenalBy: Fast DO, On: 14-Jul-2015 Intent Chaparrita A Fast DO, Chaparrita A Radiology - Knee - Left - Weight On: 11-Mar-2015 Intent BearingBy: Fast DO, Chaparrita A Fast DO, Chaparrita A Radiology - Knee - Right - Weight On: 11-Mar-2015 Intent BearingBy: Fast DO, Chaparrita A Fast DO, Chaparrita A Flu Vaccine (Quadrivalent) 00411Cp: On: 11-Feb-2015 Intent Fast DO, Chaparrita A Fast DO, Chaparrita A EKG ([id number])By: Fast DO, Chaparrita A On: 05-Nov-2014 Intent Fast DO, Chaparrita A Comments: ekg showed normal sinus rhythym, normal axis, no acute st/t wave changes left axis DRAIN/INJECT SMALL JOINT OR BURSA On: 07-Oct-2014 Intent ()By: Keri Singh MD MAMMOGRAM, SCREENING, BOTH BREAST On: 02-Aug-2014 Intent ([id number])By: Chaparrita Albrecht DO Comments: Chaparrita estes DO A Cartoid DopplerBy: Ambrocio DO Chaparrita A On: 02-Aug-2014 Intent Ambrocio DO Chaparrita A DEXA SCAN AXIAL SKELETON (30895)By: On: 09-Apr-2014 Intent Ambrocio WOLFF, Chaparrita A Fast DO, Chaparrita A Prevnar 13 ([id number])By: Ambrocio WOLFF, On: 30-Jan-2014 Intent Chaparrita Albrecht DO, Chaparrita A Comments: Lot:[id number]:05/20Dose:0.5Route:imSite:l armGiven By:Jarred signed FLU VAC, SPLIT, >3 YEARS, INTRAMUSC On: 16-Jan-2014 Intent ([id number])By: Chaparrita Albrecht DO Comments: Lot #:[id number] date:12/2015Amount given:0.5mlRoute: IMSite given: left deltoidGiven by: CARMELINA Hook DO Chaparrita A ADMINISTRATION OF INFLUENZA VIRUS On: 16-Jan-2014 Intent VACCINE (G0008)By: Chaparrita Albrecht DO, DO, Chaparrita A EKG (02855)By: Chaparrita Albrecht DO A On: 17-Oct-2013 Intent Ambrocio WOLFF Chaparrita A Comments: ekg showed normal sinus rhythym, left axis, no acute st/t wave changes Radiology - Chest- PA and LatBy: On: 17-Sep-2013 Intent Ambrocio WOLFF Chaparrita A Ambrocio DO, Chaparrita A Aerosol Treatment ([id number])By: Ambrocio On: 17-Sep-2013 Intent Chaparrita WOLFF A Ambrocio DO, Chaparrita A MRI - BrainBy: Ambrocio WOLFF Chaparrita A On: 22-Jul-2013 Intent Ambrocio DO, Chaparrita A Cartoid DopplerBy: Ambrocio DO Chaparrita A On: 20-Jul-2013 Intent Ambrocio WOLFF Chaparrita A MAMMOGRAM, SCREENING, BOTH BREASTS On: 20-Jul-2013 Intent ([id number])By: Chaparrita Albrecht DO DO, Chaparrita A Eprescribed prescriptions On: 20-Jul-2013 Intent ([id number])By: Chaparrita Albrecht DO DO, Chaparrita A Eprescribed prescriptions On: 02-Feb-2013 Intent (G8553)By: Марина Concepcion FLU VAC, SPLIT, >3 YEARS, INTRAMUSC On: 03-Jan-2013 Intent ([id number])By: Марина Concepcion Comments: Lot #:[id number] date:mount given:0.5mlRoute: IMSite given: L dltdVIS and ABN signedGiven by: CARMELINA Hook ADMINISTRATION OF INFLUENZA VIRUS On: 03-Jan-2013 Intent VACCINE (G0008)By: Марина Concepcion CT - Abdomen & Pelvis (IV Contrast On: 17-Oct-2012 Intent Needed)By: Chaparrita Albrecht DO Comments: patient will be calling to set up DO Chaparrita A Eprescribed prescriptions On: 10-Oct-2012 Intent (G8553)By: Марина Concepcion Ear Irrigation ([id number])By: Rome, On: 13-Jun-2012 Intent Ivy Comments: Ear Irrigation performed on: right earAmount/color removed cerumen: light brown, small amount removedOUtcome:Pt toleratedUsed wax curettes Wax Currettes ([id number])By: Rome, On: 13-Jun-2012 Intent Ivy PNEUM VAC ADLT/IMUMNOSPR, SBC/INTRM On: 13-Jun-2012 Intent ([id number])By: Chaparrita Albrecht DO Comments: Lot:[id number]:09/09/13Dose:0.5mLRoute:IMSite:L armGiven By:BHUMI signed Chaparrita WOLFF A EKG (87610)By: Chaparrita Albrecht DO On: 13-Jun-2012 Intent Chaparrita Albrecht DO Comments: ekg showed normal sinus rhythym, normal axis, no acute st/t wave changes MRI - BrainBy: Chaparrita Albrecht DO On: 13-Jun-2012 Intent Chaparrita Albrecht DO Comments: yonatan ADMINISTRATION OF PNEUMOCOCCAL On: 13-Jun-2012 Intent VACCINE (G0009)By: Chaparrita Albrecht DO, DO Chaparrita A Eprescribed prescriptions On: 13-Jun-2012 Intent (G8553)By: Марина Concepcion MAMMOGRAM, SCREENING, BOTH BREASTS On: 28-Dec-2011 Intent ([id number])By: Fast DO, Chaparrita A Fast DO, Chaparrita A DXA, BONE DENSITY, AXIAL SKELETON On: 28-Dec-2011 Intent ([id number])By: Fast DO, Chaparrita A Fast DO, Chaparrita [...] SPLIT, >3 YEARS, INTRAMUSC On: 28-Dec-2011 Intent ([id number])By: Марина Concepcion Comments: Lot #:[id number] date:mount given:0.5mlRoute: IMSite given: left deltoidGiven by: CARMELINA Hook ADMINISTRATION OF INFLUENZA VIRUS On: 28-Dec-2011 Intent VACCINE (G0008)By: Марина Concepcion Aerosol Treatment ([id number])By: Ciesa On: 30-Nov-[address] - Abdomen & PelvisBy: Fast DO, On: 21-Sep-2011 Intent Chaparrita A Fast DO, Chaparrita A Comments: with special cuts through the kidney- october EKG (70619)By: Марина Concepcion On: 15-Jun-2011 Intent Comments: ekg [...] Comments: Call results to Dr. Albrecht @ [phone] as soon as resulted please. DO, Chaparrita A Eprescribed prescriptions On: 11-Jan-2011 Intent (G8553)By: Fast DO, Chaparrita A Fast DO, Chaparrita A MAMMOGRAM, SCREENING, BOTH BREASTS On: 11-Jan-2011 Intent ([id number])By: Fast DO, Chaparrita A Fast DO, Chaparrita A CT - Sinuses CompleteBy: Fast DO, On: 11-Jan-2011 Intent Chaparrita A Fast DO, Chaparrita A Cartoid DopplerBy: Fast DO, Chaparrita A On: 11-Jan-2011 Intent Fast DO, Chaparrita A ADMINISTRATION OF INFLUENZA VIRUS On: 11-Jan-2011 Intent VACCINE (G0008)By: Марина Concepcion FLU VAC, SPLIT, >3 YEARS, INTRAMUSC On: 11-Jan-2011 Intent ([id number])By: Марина Concepcion Eprescribed prescriptions On: 12-Oct-2010 Intent (G8553)By: Ambrocio DO, Chaparrita A Fast DO, Chaparrita A Renal DopplerBy: Fast DO, Chaparrita A On: 12-Oct-2010 Intent Fast DO, Chaparrita A Cartoid DopplerBy: Fast DO, Chaparrita A On: 12-Oct-2010 Intent Fast DO, Chaparrita A Comments: sept TDAP VACCINE >7 IM ([id number])By: On: 13-May-2010 Intent Helena Tineo LPN Comments: Lot #[id number]/25/13Site-left deltoidgiven by:[facility] EKG (31045)By: Марина Concepcion On: 13-May-2010 Intent Comments: ekg showed normal sinus rhythym, normal axis, no acute st/t wave changes Aerosol Treatment ([id number])By: Charlene On: 22-Dec-2009 Intent [facility], Johanna Espinal DopplerBy: Fast DO, Chaparrita A On: 01-Dec-2009 Intent Fast DO, Chaparrita A MAMMOGRAM, SCREENING, BOTH BREASTS On: 01-Dec-2009 Intent ([id number])By: Fast DO, Chaparrita A Fast DO, Chaparrita A DXA, BONE DENSITY, AXIAL SKELETON On: 01-Dec-2009 Intent ([id number])By: Fast DO, Chaparrita A Fast DO, Chaparrita A Ultrasound - SpleenBy: Fast DO, On: 17-Jun-2009 Intent Chaparrita A Fast DO, Chaparrita A EKG ([id number])By: Марина Concepcion On: 10-Mar-2009 Intent Comments: ekg showed normal sinus rhythym, normal axis, no acute st/t wave changes FLU VAC, SPLIT, >3 YEARS, INTRAMUSC On: 09-Jan-2009 Intent ([id number])By: Stacy Jorge Comments: Lot #[id number]-7/2010Site-left deltoidDose0.5mlgiven by Marycarmen Jorge LPN ADMINISTRATION OF INFLUENZA VIRUS On: 09-Jan-2009 Intent VACCINE (G0008)By: Stacy Jorge MAMMOGRAM, SCREENING, BOTH BREASTS On: 04-Dec-2008 Intent ([id number])By: Fast DO, Chaparrita A Fast DO, Chaparrita A MAMMOGRAM, SCREENING, BOTH BREASTS On: 03-Sep-2008 Intent ([id number])By: Fast DO, Chaparrita A Fast DO, Chaparrita A FLU VAC, SPLIT, >3 YEARS, INTRAMUSC On: 16-Jan-2008 Intent ([id number])By: Janet Scherer RN Comments: Lot #: [id number] date: 09/10Amount given: 0.5 mlRoute: IMSite given: Left deltoidGiven by: Olivia Bell LPN ADMINISTRATION OF INFLUENZA VIRUS On: 16-Jan-2008 Intent VACCINE (G0008)By: Janet Scherer RN EKG ([id number])By: Ambrocio DO, Chaparrita A On: 29-Aug-2007 Intent Fast DO, Chaparrita A Comments: done km ADMINISTRATION OF PNEUMOCOCCAL On: 29-Aug-2007 Intent VACCINE (G0009)By: Fast DO, Chaparrita A Fast DO, Chaparrita A PNEUM VAC ADLT/IMUMNOSPR, SBC/INTRM On: 29-Aug-2007 Intent (31440)By: Fast DO, Chaparrita A Fast Comments: 0.5cc given im lt arm [id number] 02-13-08 DO, Chaparrita A DXA, BONE DENSITY, AXIAL SKELETON On: 29-Aug-2007 Intent ([id number])By: Fast DO, Chaparrita A Fast DO, Chaaprrita A MAMMOGRAM, SCREENING, BOTH BREASTS On: 29-Aug-2007 Intent (01804)By: Fast DO, Chaparrita A Fast DO, Chaparrita [...] Indication: Hypertension, benign Encounters Phone Encounter On: 11-Apr-2018 9:53 Encounter Diagnosis: [...] new people and be involved in the faith 0 bps are good and sugar looking [...] 8:39 [facility] Office Visit On: 2-Alfonso-2018 10:35 Encounter Diagnosis: Knee pain, unspecified laterality [...] medical issues: she has been working with [employer] and trying to work on that- she got rid of respiratory infection but was sick for weeks and was on pred so her sugar up and chol up a bit- trying to add protein shakes drink more water- she is starting back at [facility]- diarrhea resolved- we did talk about going [...] that she had episode where went to [facility] and she couldnt remember where she was- and happened one other time where she didnt recognize the roads- sister had alzheimer s- weight down because was sick- but coming back up- she hasnt done counseling with hospice has been thru before- she lonely- not necessarily unhappy- she doing self help she is singing with faith- -rodriguez gars are all in low 100s-130- going to [employer] for a month next monthEncounter Diagnosis: [...] Eddie and bp is good she joined [facility] sugar up bit doi ng ice cream-the bone density reviewed little thinner she not exercising routienly until just recent at [facility] and sees kidney doc next week and [...] chronic medical issues: alot of stress maribel yfriend in hospice - going to [facility] end of month- too much to care [...] Patient sleeps 8 hours per night. Nutrition: [facility] diet. The medical issues the patient is [...] visual acuity (yearly). Note for Physical exam: [facility] Wellness Physical- Talk about trying Myrbetriq., [ADDITIONAL REASON] Follow up, Laboratory Test Results - Date: (09/2015- [facility] labs). , [ADDITIONAL REASON] Itching [...] stenosis, asymptomatic, right, Hypertension, benign, Colon Polyp, [facility] WELLNESS PHYSICAL, Osteopenia (733.90), Pruritus, Mixed hyperlipidemia [...] Meningioma (Renamed from 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, 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, BRAIN/FINANCIAL SERVICES REPRESENTATIVE NEC (794.09)) [facility] Visit [...] and has follwoup with him in apr- great- she doesnt feel swain changing so doesnt wish to mri brain, [ADDITIONAL REASON] Follow up tests - Diagnostic tests include other (labs and carotid doppler). Date: (10/28/14). Encounter Diagnosis: Meningioma (Renamed from 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, 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, BRAIN/FINANCIAL SERVICES REPRESENTATIVE NEC (794.09)), Diabetes, Type II, controlled (250.00), [...] cant take byetta due to cost in [facility]- - takes ??lorazepam 1-2 times a week [...] Meningioma (Renamed from 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, 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, BRAIN/FINANCIAL SERVICES REPRESENTATIVE NEC (794.09)), Colon Polyp [facility] [...] Meningioma (Renamed from 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, 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, BRAIN/FINANCIAL SERVICES REPRESENTATIVE NEC (794.09)), OCCLUSION AND STENOSIS OF CAROTID [...] Meningioma (Renamed from 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, 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, BRAIN/FINANCIAL SERVICES REPRESENTATIVE NEC (794.09)), Chronic glomerulonephritis with lesion of [...] Meningioma (Renamed from 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, 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, BRAIN/FINANCIAL SERVICES REPRESENTATIVE NEC (794.09)), Other and unspecified hyperlipidemia (272.4), [...] is sleeping well. Pa End: 22-Jul-2013 22:04 tieriver has been compliant with instructions. Current medication [...] Meningioma (Renamed from 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, 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, BRAIN/FINANCIAL SERVICES REPRESENTATIVE NEC (794.09)) [facility] Visit [...] Meningioma (Renamed from 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, 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, BRAIN/FINANCIAL SERVICES REPRESENTATIVE NEC (794.09)), Gerd (530.81), Hyperlipidemia, Unspecified (272.4), [...] Meningioma (Renamed from 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, 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, BRAIN/FINANCIAL SERVICES REPRESENTATIVE NEC (794.09)), Hypertension,benign(401.1), OCCLUSION AND STENOSIS OF [...] Meningioma (Renamed from 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, 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, BRAIN/FINANCIAL SERVICES REPRESENTATIVE NEC (794.09)), Diabetes, Type II, controlled (250.00), [...] Meningioma (Renamed from 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, 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, BRAIN/FINANCIAL SERVICES REPRESENTATIVE NEC (794.09)), Hypertension,benign(401.1), Osteopenia (733.90), Depression (311.), [...] weight down 23 pounds- and trying joined [facility]- she feels well - she increased celexa [...] Meningioma (Renamed from 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, 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, BRAIN/FINANCIAL SERVICES REPRESENTATIVE NEC (794.09)), Chronic glomerulonephritis with lesion of [...] Meningioma (Renamed from 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, 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, BRAIN/FINANCIAL SERVICES REPRESENTATIVE NEC (794.09)) End: 26-Jan-2011 16:53 [facility] Office Visit On: 19-Jan-2011 14:30 Encounter Diagnosis: brain tumor End: 21-Sep-2011 8:09 [facility] Phone Encounter On: 19-Jan-2011 13:41 Encounter Diagnosis: 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, 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, BRAIN/FINANCIAL SERVICES REPRESENTATIVE NEC (794.09) End: 19-Jan-2011 13:44 [facility] [...] again -- she is getting surgery on [facility]-- her bps have been running 90s at [...] (V04.81), Degenerative Disc Disease - Lumbar (722.52), [facility] Office Visit On: 06-Dec-2007 [...] WITH RADICULOPATHY (724.4) [facility] Payers MedicareAA/[facility]; olivia guarantor
--- OUTSIDE RECORDS SUMMARY | 2018-06-25 21:35 | XMS RPT_ITS | Continuity of Care Document ---
:1940 Author Organization [facility] Address [address] [place] [address] Phone Care Team Providers Name Role Phone [...] Knee pain, unspecified laterality (719.46) Comments: Valorie:lot: [id number]: 09/20site/route: L knee Status: Active Leg pain, [...] days Quantity: 90 {Tablet} Refills: 3 Ordered:28-Jun-2017 DO, Chaparrita AFast DO, Chaparrita A Start [...] 0 days Quantity: 100 {Strip} Refills: 5 Ordered:14-Apr-2018 , Chaparrita AFast DO, Chaparrita A Start : 14-Apr-2018 Active Comments:Dx:E11.9patient is NOT insulin dependant Hydrocodone-Acetaminophen [...] DO, Chaparrita A Start : 22-Mar-2018 Active Comments:[id number] 09/20 Victoza 18 MG/3ML Subcutaneous Solution Pen-injector [...] Quantity: 30 {Tablet} Refills: 3 Ordered:14-Jun-2012 Ladan Butst LPN Start : 13-Jun-2012 End : 14-Jun-2012 [...] spray daily for 0 days Quantity: 1 {[place]} Refills: 0 Ordered:04-May-2016 SHONDA Andrade Start : [...] and dispense 8 ounes TOTAL mixed solutionCal [id number] if questions SPECTAZOLE, 1% (External Cream) 1 [...] 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 2016 right Cholecystectomy Completed lumbar auriez==1908 Completed Tonsillectomy Completed Date Value Details 19-Dec-2017 Echocardiogram Complete Result: Comments: See Note; NOTES: [facility] Cardiovascular Services [address] [place] [address] Echo Complete 12/19/17 0800 MR#: [id number] Acct: [id number] Name: CLARENCE ALBERT ep #: [id number] : 1940 77 From: Chuckie Cormier MD Attending Dr: Chaparrita Albrecht DO Status: REG CLI Ordering Dr: Chaparrita Albrecht DO Date: 12/19/17 Location: [facility] Sex: F C Admitted: Reason [...] Dictated: 12/19/17 0800 Date Transcribed: 12/19/17 1022 Punch Molder: Signed 07-Dec-2017 Carotid Duplex Ultrasound Result: Comments: See Note; NOTES: [facility] Cardiovascular Services [address] [place] [address] Carotid Duplex Ultrasound 12/06/17 0901 MR#: [id number] Acct: [id number] Name: CLARENCE WHITTINGTON Rep #: [id number] : 1940 77 From: Anurag Loay MD Attending Dr: Chaparrita Albrecht DO Status: [...] the left vertebral artery. Procedure Carotid Duplex 53089. Exam performed in department. Interpretation Summary Mild (<50%) stenosis right extracranial internal carotid. Mild (<50%) stenosis left extracranial internal carotid. Flow within the vertebral arteries is antegrade bilaterally. __ __ Ordering Physician: Chaparrita Albrecht Performed By: Margot Benton RVT and Student 12/07/17808 Date Anurag Loya MD CC: Chaparrita Albrecht DO Date Dictated: 12/06/17900 Date Transcribed: 12/07/17808 Punch Molder: Signed 06-Dec-2017 SCREENING MAMM (CAD), BILAT Result: Comments: See Note; NOTES: [facility] Imaging Services [address] [place] [address] SCREENING MAMM (CAD), BILAT MR#: [id number] Acct: [id number] Name: CLARENCE ALBERT Rep #: [id number] : 1940 F 77 From: Misael Hebert MD PCP: Chaparrita Albrecht DO Status: REG CLI Study: SCREENING MAMM (CAD), BILAT Date of Exam: 12/06/17 Exam# [id number] Ordering Dr: Chaparrita Albrecht DO MAMM OGRAPHY [...] delay biopsy of a clinically suspicious abnormality. [id number] Electronically Signed: Misael Hebert MD at 15:31 EDT Tel [phone], Se rvice support , CC: Chaparrita Albrecht DO Punch Molder: Signed 10-Jun-2017 Brain W/WO Contrast Result: Comments: See Note; NOTES: [facility] Imaging Services [address] [place] [address] Brain W/WO Contrast MR#: [id number] Acct: [id number] Name: CLARENCE ALBERT Rep #: [id number] : 1940 F 77 From: Laya Montilla MD PCP: Chaparrita Albrecht DO Status: REG CLI Study: Brain W/WO Contrast Date of Exam: 06/10/17 Exam# [id number] Ordering Dr: Chaparrita Albrecht DO STUDY: MRI [...] Service support , CC: Chaparrita Albrecht DO Punch Molder: Signed 05-May-2017 Chest PA and Lateral Result: Comments: See Note; NOTES: [facility] Imaging Services [address] [place] [address] Chest PA and Lateral MR#: [id number] Acct: [id number] Name: CLARENCE ALBERT Rep #: [id number] : 1940 F 77 From: Edwar Patino MD PCP: Chaparrita Albercht DO Status: REG CLI Study: Chest PA and Lateral Date of Exam: 05/05/17 Exam# [id number] Ordering Dr: Keri Singh MD STUDY: X-RAY [...] CC: Keri Singh MD; Chaparrita Albrecht DO Punch Molder: Signed 02-Nov-2016 Dexa Bone Density Study (HP) Result: Comments: See Note; NOTES: [facility] Imaging Services [address] [place] [address] Verdana 4d Dexa Bone Density Study () MR#: [id number] Acct: [id number] Name: LYNNE ALBERT Rep #: [id number] : 1940 F 76 From: Misael Hebert MD PCP: Chaparrita Albrecht DO Status: REG CLI Study: Dexa Bone Density Study () Date of Exam: 11/02/16 Exam# [id number] Ordering Dr: Laura DO STUDY: DUAL ENERGY [...] Misael Hebert MD at 11:02 EDT Tel [phone], Service support , CC: Chaparrita Albrecht DO Punch Molder: Signed 02-Nov-2016 SCREENING MAMM (CAD), BILAT Result: Comments: See Note; NOTES: [facility] Imaging Services [address] [place] [address] Verdana 4d SCREENING MAMM (CAD), BILAT MR#: [id number] Acct: [id number] Name: CLARENCE ALBERT Rep #: [id number] : 1940 F 76 From: Misael Hebert MD PCP: Chaparrita Albrecht DO Status: REG CLI Study: SCREENING MAMM (CAD), BILAT Date of Exam: 11/02/16 Exam# [id number] Ordering Dr: Case Albrecht DO MAMMOGRAPHY - [...] delay biopsy of a clinically suspicious abnormality. [id number] Electronically Signed: Misael Hebert MD at 12:44 EDT Tel [phone], Service support , CC: Chaparrita Albrecht DO Punch Molder: Signed 05-Aug-2016 Venous Duplex Lower Extremity Result: Comments: See Note; NOTES: [facility] Cardiovascular Services [address] [place] [address] Venous Duplex US, Unilateral 08/05/16 1053 MR#: [id number] Acct: [id number] Name: CLARENCE WEI Rep #: [id number] : 1940 76 From: Elvin Natarajan MD [...] Dictated: 08/05/16 1053 Date Transcribed: 08/05/16 1127 Punch Molder: Signed 27-May-2016 Knee 4 or More Views Result: Comments: See Note; NOTES: [facility] Imaging Services [address] [place] [address] Verdana 4d Knee 4 or More Views MR#: [id number] Acct: [id number] Name: CLARENCE ALBERT Rep #: [id number] : 1940 F 76 From: Misael Hebert MD PCP: Chaparrita Albrecht DO Status: REG CLI Study: Knee 4 or More Views Date of Exam: 05/27/16 Exam# [id number] Ordering Dr: Kylah Linda DO UDY: X-RAY [...] MD at 10:41 EST , Service support [phone], CC: Chaparrita Albrecht DO; Kylah Linda DO Punch Molder: Signed 13-May-2016 Sinus/Facial Bone Result: Comments: See Note; NOTES: [facility] Imaging Services [address] [place] [address] Verdana 4d Sinus/Facial Bone MR#: [id number] Acct: [id number] Name: CLARENCE ALBERT Rep #: [id number] : 1940 F 76 From: Godwin Winter MD PCP: Chaparrita Albrecht DO Status: REG CLI Study: Sinus/Facial Bone Date of Exam: 05/13/16 Exam# [id number] Ordering Dr: Alejandro Silverman MD STUDY: CT [...] MD at 7:35 EST , Service support [phone], CC: Chaparrita Albrecht DO; Alejandro Silverman MD Punch Molder: Signed 21-Apr-2016 Emergency Department Summary Result: Comments: See Note; NOTES: [facility] Medical Records Department [address] [place] [address] Emergency Department Summary MR#: [id number] Acct: [id number] Name: CLARENCE ALBERT Rep #: [id number] : 1940 76 From: Carissa Murphy MD [...] Left anterior epistaxis. CARISSA MURPHY MD T: [facility] JOB: [id number] 04/21/1606 <Electronically signed by Carissa Murphy MD> Date Carissa donovan MD Cosigner Signature (If Indicated): Date CC: Chaparrita Albrecht DO Date Dictated: 04/20/161711 Date Transcribed: 04/20/161711 Punch Molder: Signed 20-Apr-2016 Discharge Instruction Result: Comments: See Note; NOTES: [facility] Medical Records Department [address] [place] [address] Discharge Instruction 04/20/16 1303 MR#: [id number] Acct: [id number] Name: CLARENCE ALBERT Rep #: [id number] : 1940 76 From: Carissa Murphy MD [...] your Primary Care Provider. Call [facility] ([phone]) or report to the closest Emergency Room. Call 911 if necessary. 04/20/16 1645 <Electronically signed by Carissa Murphy MD> Date Carissa Murphy MD Cosigner Signature (If I ndicated): Date CC: Chaparrita Albrecht DO 02-Nov-2015 Carotid Duplex Ultrasound Result: Comments: See Note; NOTES: [facility] Cardiovascular Services [address] [place] [address] Carotid Duplex Ultrasound 10/30/15 1100 MR#: [id number] Acct: [id number] Name: CLARENCE ALBERT Rep #: [id number] : 1940 75 From: lEvin Natarajan MD Attending Dr: Chaparrita Albrecht DO Status: REG CLI Ordering Dr: Chaparrita Albrecht DO Date: 10/30/15 Location: [facility] Sex: F C Adm itted: [...] the left vertebral artery. Procedure Carotid Duplex 41191. The exam was diagnostic. Exam performed in [...] Dictated: 10/30/15 1100 Date Transcribed: 11/02/15 1143 Punch Molder: Signed 30-Oct-2015 Bilat Scrn Digital AND CAD Result: Comments: See Note; NOTES: [facility] Imaging Services [address] [place] [address] Verdana 4d Bilat Scrn Digital AND CAD MR#: [id number] Acct: [id number] Name: CLARENCE ALBERT Rep #: [id number] : 1940 F 75 From: Andres Brady MD PCP: Chaparrita Albrecht DO Status: REG CLI Study: Bilat Scrn Digital AND CAD Date of Exam: 10/30/15 Exam# [id number] Ordering Dr: Chaparrita Albrecht DO MAMMOGRAPHY - [...] biop sy of a clinically suspicious abnormality. [id number] Electronically Signed: Andres Brady MD at 17:48 EDT Tel , Service support [phone], CC: Chaparrita Albrecht DO Punch Molder: Signed 30-Oct-2015 Bilat Ld Digital AND CAD Result: Comments: See Note; NOTES: [facility] Imaging Services [address] [place] [place] [address] Verdana 4d Bilat Scrn Digital AND CAD MR#: [id number] Acct: [id number] Name: CLARENCE ALBERT Rep #: [id number] : 1940 F 75 From: Andres [place] MD PCP: Chaparrita Albrecht DO Status: REG CLI Study: Bilat Ld Digital AND CAD Date of Exam: 10/30/15 Exam# [id number] Ordering Dr: Chaparrita Albrecht DO MAMMOGRAPHY - [...] abnormalities are identified. CC: Chaparrita Albrecht DO Punch Molder: Signed 22-Oct-2015 ELECTROCARDIOGRAM, COMPLETE (ECG) (53974) Comments: ekg showed normal sinus rhythym, normal axis, no acute st/t wave changes no change Result: [MEASUREMENTS ANALYSIS] Date of Test: 10/22/2015 14:41:29; Heart Rate: 71; CT Interval: 140; QRS: 94; QT Interval: 384; Corrected QT Interval (QTc): 403; P Wave Dupuyer: 58; QRS Wave Dupuyer: -3; T Wave Dupuyer: 56; Blood Pressure: 128/76 [ECG DIAGNOSTIC STATEMENTS] Date of Test: 10/22/2015 14:41:29; Summary: Sinus Rhythm Low voltage -possible pulmonary disease. ABNORMAL 22-Jul-2015 Kidney and Bladder Result: Comments: See Note; NOTES: [facility] Imaging Services [address] [place] [address] Verdana 4d Kidney and Bladder MR#: [id number] Acct: [id number] Name: Yaniv ALBERT Rep #: [id number] : 1940 F 75 From: Nir Sanchez MD PCP: Chaparrita Albrecht DO Status: REG CLI Study: Kidney and Bladder Date of Exam: 07/22/15 Exam# [id number] Ordering Dr: Chaparrita Albrecht DO STUDY: RENAL [...] Service support , CC: Chaparrita Albrecht DO Punch Molder: Signed 11-Mar-2015 Knee 4 or More Views Result: Comments: See Note; NOTES: [facility] Imaging Services [address] [place] [address] Verdana 4d Knee 4 or More Views MR#: [id number] Acct: [id number] Name: CLARENCE ALBERT Rep #: [id number] : 1940 F 74 From: Trent Cameron DO PCP: Chaparrita Albrecht DO Status: REG CLI Study: Knee 4 or More Views Date of Exam: 03/11/15 Exam# [id number] Ordering Dr: Case Albrecht DO STUDY: X-RAY [...] at 7:45 EST Tel , Service support [phone], RAD/Knee 4 or More Views IMPRESSION: Degener ative changes within the knee. No acute fracture. Small suprapatellar effusion. Electronically Signed: Trent Cameron DO at 7:45 EST Tel , Service support [phone], CC: Chaparrita Albrecht DO Punch Molder: Signed 11-Mar-2015 Knee 4 or More Views Result: Comments: See Note; NOTES: [facility] Imaging Services [address] [place] [address] Verdana 4d Knee 4 or More Views MR#: [id number] Acct: [id number] Name: CLARENCE ALBERT Rep #: [id number] : 1940 F 74 From: Trent Cameron DO PCP: Chaparrita Albrecht DO Status: REG CLI Study: Knee 4 or More Views Date of Exam: 03/11/15 Exam# [id number] Ordering Dr: Case Albrecht DO STUDY: X-RAY [...] at 7:46 EST Tel , Service support [phone], RAD/Knee 4 or More Views IMPRESSION: Mild degenerative changes. No acute bony abnormality. Electronically Signed: Trent Cameron DO at 7:46 EST Tel , Service support [phone], CC: Chaparrita Albrecht DO Punch Molder: Signed 18-Oct-2014 Carotid Duplex Ultrasound Result: Comments: See Note; NOTES: [facility] Cardiovascular Services [address] [place] [address] Carotid Duplex Ultrasound 10/18/14 1331 MR#: [id number] Acct: [id number] Na me: CLARENCE ALBERT Rep #: [id number] : 1940 74 From: Elvin Natarajan MD [...] the left vertebral artery. Procedure Carotid Duplex 37266. The exam was diagnostic. Exam performed in [...] Dictated: 10/18/14 1331 Date Transcribed: 10/18/14 161 Punch Molder: Signed 18-Oct-2014 Saad Jaffe Digital AND CAD Result: Comments: See Note; NOTES: [facility] Imaging Services [address] [place] [place] [address] Breast Imaging Report MR#: [id number] Acct: [id number] Name: CLARENCE ALBERT Rep #: [id number] : 1940 F 74 From: Misael Hebert MD PCP: Chaparrita Albrecht DO Status: REG CLI Study: Saad Jaffe Digital AND CAD Date of Exam: 10/18/14 Exam# [id number] Ordering Dr: Chaparrita Albrecht DO MAMMOGRAPHY - [...] Misael redmond MD at 13:44 EDT Tel [phone], Service support [phone], CC: Chaparrita Albrecht DO Punch Molder: Signed 09-Jul-2014 Dexa Bone Density Study (HP) Result: Comments: See Note; NOTES: [facility] Imaging Services [address] [place] [place] [address] Bone Density Report MR#: [id number] Acct: [id number] Name: CLARENCE ALBERT Rep #: [id number] : 1940 F 74 From: Misael Hebert MD PCP: Chaparrita Albrecht DO Status: [facility] CL Study: Dexa Bone Density Study (HP) Date of Exam: 07/09/14 Exam# [id number] Ordering Dr: Chaparrita Albrecht DO STUDY: DUAL [...] Angel Hebert MD at 14:55 EDT Tel [phone], Service support [phone], CC: Chaparrita Albrecht DO Punch Molder: Signed 17-Sep-2013 Chest PA and Lateral Result: Comments: See Note; NOTES: [facility] Imaging Services [address] [place] [address] Radiology Report MR#: [id number] Acct: [id number] Name: CLARENCE ALBERT Rep #: [id number] : 1940 F 73 From: David Bennett MD PCP: Chaparrita Albrecht DO Status: REG CLI Study: Chest PA and Lateral Date of Exam: 09/17/13 Exam# [id number] Ordering Dr: Chaparrita Albrecht DO STUDY: X-RAY [...] MD at 20:44 EDT , Service support [phone], RAD/Chest PA and Lateral IMPRESSION: No focal infiltrate or edema. Electronic ally Signed: David Bennett MD at 20:44 EDT , Service support [phone], CC: Chaparrita Albrecht DO Punch Molder: Signed 17-Sep-2013 Spirometry (36697) Result: 29-Aug-2013 Carotid Duplex Ultrasound Result: Comments: See Note; NOTES: [facility] Cardiovascular Services [address] [place] [address] Carotid Duplex Ultrasound 08/24/13 0939 MR#: [id number] Acct: [id number] Chalo e: CLARENCE ALBERT Rep #: [id number] : 1940 73 From: Anurag Loya MD Attending Dr: Chaparrita Albrecht DO Status: REG CLI Ordering Dr: Chaparrita Albrecht DO Date: 08/24/13 Location: [facility] Sex: F C Admitted: Rt. [...] in the left bulb. Procedure Carotid Duplex 78931. Exam perfor med in department. Interpretation Summary Mild (<50%) stenosis right extracranial internal carotid. Mild (<50%) stenosis left extracranial internal carotid. Flow within the vertebra l arteries is antegrade bilaterally. Ordering Physician: Chaparrita Albrecht Performed By: Kendal Benton RVT : Chaparrita Albrecht DO Date Dictated: 08/24/13 0939 Date Transcribed: 08/29/13 1118 Punch Molder: Signed Immunization Name Dates Details Influenza (3 years and up) on: 16-Jan-2008 Comments: Lot #: [id number] date: 09/10Amount given: 0.5 mlRoute: IMSite given: Left deltoidGiven by: Olivia Bell LPN Influenza (3 years and up) on: 09-Jan-2009 Comments: Lot #[id number]-left deltoidDose0.5mlgiven by Marycarmen Jorge LPN Pneumococcal (2 years and up) on: 29-Aug-2007 Comments: 0.5cc given im lt arm lid7990l exp 02-13-08 Family History Unknown Family Member [...] kg/m2 Body Surface Area Calculated 1.76 m2 42-Wov-348002:39 Temperature 97.9 f Comments: Method: Temporal Pulse [...] copy of this report has been sent [phone].PATIENT WAS FASTINGPERFORMED BY: STinserRutgers - University Behavioral HealthCareQwisqb6997 [facility] [id number] Alb/Creat Ratio 4475.5 {mg/g_creat} (Abnormal) Range: 0.0-30.0 Comments: Normal: 0.0 - 30.0 Albuminuria: 31.0 - 300.0 Clinical albuminuria: >300.0 Albumin, Urine 2085.6 ug/mL (Normal) Comments: Results confirmed ondilution. Creatinine, Urine 46.6 mg/dL (Normal) :33 CBC With Differential/Platelet Comments: A courtesy copy of this report has been sent [phone].PATIENT WAS FASTINGPERFORMED BY: STinserRutgers - University Behavioral HealthCareXfeiqv1103 [facility] [id number] Information: ADD CBC Immature Grans (Abs) 0.0 [...] copy of this report has been sent [phone].PATIENT WAS FASTINGPERFORMED BY: STinser SNRLabsCritical access hospital [id number] :33 Range: 1.6-2.3 :33 Microscopic Examination Comments: A courtesy copy of this report has been sent [phone].PATIENT WAS FASTINGPERFORMED BY: STinser Targeter App WilloughbyAnti-Microbial SolutionsCone Health [id number] Bacteria Few (Normal) Mucus Threads Present (Normal) Epithelial Cells (non 0-10 {/hpf} Range: 0 - 10 renal) (Normal) RBC 0-2 {/hpf} (Normal) Range: 0 - 2 WBC 0-5 {/hpf} (Normal) Range: 0 - 5 : PTH, Intact 29 pg/mL (Normal) Comments: A courtesy copy of this report has been sent [phone].PATIENT WAS FASTINGPERFORMED BY: STinser Iybhio9994 [facility] [id number] 33 Range: 15-65 :33 Renal Panel (10) Comments: A courtesy copy of this report has been sent [phone].PATIENT WAS FASTINGPERFORMED BY: STinser Targeter App [facility] [id number] Phosphorus 4.0 mg/dL (Normal) Range: 2.5-4.5 :33 Vitamin D Hydroxy (15662) Comments: A courtesy copy of this report has been sent [phone].PATIENT WAS FASTINGPERFORMED BY: [employer] Rwhfwx1761 [facility] [id number] Vitamin D, 25-Hydroxy 36.8 ng/mL (Normal) Range: 30.0-100.0 Comments: Vitamin D deficiency has been defined by the [place] of[place]icine and an Endocrine Society practice guideline as alevel of serum 25-OH vitamin D less than 20 ng/mL (1,2).The Endocrine Society went on to further define vitamin Dinsufficiency as a level between 21 and 29 ng/mL (2).1. IOM ([place] of Medicine). 2010. Dietary reference intakes for calcium and D. [place]: The National Academies Press.2. Mira MF, Rosette LOPEZ, Tommy SWAIN, et al. Evaluation, treatment, and prevention of vitamin D deficiency: an Endocrine Society clinical practice guideline. JCEM. 2010; 96(7):1911-30. :33 URINALYSIS, W/ MICRO (29770) Comments: A courtesy copy of this report has been sent [phone].PATIENT WAS FASTINGPERFORMED BY: Mogi6370 [facility] [id number] Microscopic Examination See below: (Normal) Comments: Microscopic was indicated and was performed. Nitrite, Urine Negative (Normal) Urobilinogen,Semi-Qn 0.2 mg/dL (Normal) Range: 0.2-1.0 Bilirubin Negative (Normal) Occult Blood Negative (Normal) Ketones Negative (Normal) Glucose Negative (Normal) Protein 3+ (Abnormal) WBC Esterase Negative (Normal) Appearance Clear (Normal) Urine-Color Yellow (Normal) pH 5.5 (Normal) Range: 5.0-7.5 Specific Arnold 1.012 (Normal) Range: 1.005-1.030 :33 LIPID PANEL (09309) Comments: A courtesy copy of this report has been sent [phone].PATIENT WAS FASTINGPERFORMED BY: Mogi6370 [facility] [id number] LDL/HDL Ratio 1.4 {ratio} (Normal) Range: 0.0-3.2 [...] copy of this report has been sent [phone].PATIENT WAS FASTINGPERFORMED BY: LabCoRutgers - University Behavioral HealthCareEseflw3715 [facility] [id number] (43667) ALT (SGPT) 11 [iU]/L (Normal) Range: 0-32 [...] 8-27 Glucose 162 mg/dL (Abnormal) Range: 65-99 46-Sau-325737:24 HgA1C , Office (57065) HgA1C , Office 6.5 % (Normal) Range: 4.6 - 7.1 :33 HGB A1C (67204) Comments: A courtesy copy of this report has been sent [phone].PATIENT WAS FASTINGPERFORMED BY: [employer]Exchange LabCox Communications6370 [facility]itfulCritical access hospital [id number] Hemoglobin A1c 6.3 % (Abnormal) Range: 4.8-5.6 Comments: . Prediabetes: 5.7 - 6.4 Diabetes: >6.4 Glycemic control for adults with diabetes: <7.0 :14 LIPID PANEL (23308) Comments: PATIENT WAS FASTINGPERFORMED BY: Mogi6370 [facility] [id number] LDL/HDL Ratio 1.1 {ratio} (Normal) Range: 0.0-3.2 [...] (Normal) Range: 100-199 :14 Vitamin D Hydroxy (27428) Comments: PATIENT WAS FASTINGPERFORMED BY: LabCo Bbzmub9388 [facility] [id number] Vitamin D, 25-Hydroxy 37.8 ng/mL (Normal) Range: 30.0-100.0 Comments: Vitamin D deficiency has been defined by the [place] of[place]icine and an Endocrine Society practice guideline as alevel of serum 25-OH vitamin D less than 20 ng/mL (1,2).The Endocrine Society went on to further define vitamin Dinsufficiency as a level between 21 and 29 ng/mL (2).1. IOM ([place] of Medicine). 2010. Dietary reference intakes for calcium and D. [place]: The National Academies Press.2. Mira MF, Rosette LOPEZ, Tommy SWAIN, et al. Evaluation, treatment, and prevention of vitamin D deficiency: an Endocrine Society clinical practice guideline. JCEM. 2010; 96(7):1911-30. -:14 CBC with auto diff (44143) Comments: PATIENT WAS FASTINGPERFORMED BY: LabCoRutgers - University Behavioral HealthCareUzgzbp5291 [facility] [id number] Immature Grans (Abs) 0.0 {x10E3/uL} (Normal) Range: [...] PANEL, COMPREHENSIVE Comments: PATIENT WAS FASTINGPERFORMED BY: LabCoRutgers - University Behavioral HealthCareEzrtmc8331 [facility] [id number] (59556) ALT (SGPT) 10 [iU]/L (Normal) Range: 0-32 [...] CREATININE RATIO Comments: PATIENT WAS FASTINGPERFORMED BY: LabHurley Medical Center6370 [facility] [id number] (55785) AND (59273) Alb/Creat Ratio 4213.3 {mg/g_creat} (Abnormal) Range: 0.0-30.0 Albumin, Urine 3206.3 ug/mL (Normal) Comments: Results confirmed ondilution. Creatinine, Urine 76.1 mg/dL (Normal) :40 CBC & PLATELETS (AUTO) (72915) Comments: please fax to Dr. Austin- [phone]; PATIENT WAS FASTINGPERFORMED BY: [place] BreweryRutgers - University Behavioral HealthCareJnmvxc7013 [facility] [id number] Platelets 148 {x10E3/uL} (Abnormal) Range: 150-379 RDW [...] PANEL Comments: please fax to Dr. Austin- [phone]; PATIENT WAS FASTINGPERFORMED BY: STinserRutgers - University Behavioral HealthCareLoxqbi5117 [facility] [id number] Information: [id number],I40411 FX DR. SANTANA (75507) Albumin 3.1 g/dL (Abnormal) Range: 3.5-4.8 Phosphorus [...] 133 mg/dL (Abnormal) Range: 65-99 :40 MAGNESIUM (83823) Comments: please fax to Dr. Austin- [phone]; PATIENT WAS FASTINGPERFORMED BY: LabCox Monett Bczcmj3364 Willoughby RoadDublin [place] [id number] Magnesium 1.9 mg/dL (Normal) Range: 1.6-2.3 :40 CALCIFEDIOL (14066) Comments: please fax to Dr. Austin- [phone]; PATIENT WAS FASTINGPERFORMED BY: [facility] Qitepk0102 [address] RoadDublin [place] [id number] Vitamin D, 25-Hydroxy 29.4 ng/mL (Abnormal) Range: 30.0-100.0 Comments: Vitamin D deficiency has been defined by the [place] of[place]icine and an Endocrine Society practice guideline as alevel of serum 25-OH vitamin D less than 20 ng/mL (1,2).The Endocrine Society went on to further define vitamin Dinsufficiency as a level between 21 and 29 ng/mL (2).1. IOM ([place] of Medicine). 2010. Dietary reference intakes for calcium and D. [place]: The National Academies Press.2. Mira MF, Rosette NC, Tommy SWAIN, et al. Evaluation, treatment, and prevention of vitamin D deficiency: an Endocrine Society clinical practice guideline. JCEM. 2010; 96(7):1911-30. :40 PARATHORMONE (87454) Comments: please fax to Dr. Austin- [phone]; PATIENT WAS FASTINGPERFORMED BY: [facility] Rptzix7617 [address] RoadDublin [place] [id number] PTH, Intact 22 pg/mL (Normal) Range: 15-65 46-Yii-89925:30 COLON BIOPSY (CHOOSE See Note (Normal) Comments: [facility] Fwe[address]jarbiq[address] [place], [address] SITE) Comments: Patient: CLARENCE ALBERT : 1940 (77/F) Acct Num: [id number] Phys: Marcus Caldera Unit Num: [id number] Loc: LABSPEC Specimen: [id number] Received: 09/16/171528 Spec Type: Kendal MAURER TISSUES [...] one cassette. / MARCY:dustin 09/19/17 TC:1 CPT: 90421 x2 HEADER OPERATION: Colonoscopy PRE-OP DIAGNOSIS: History of polyps TISSUE SUBMITTED: A Proximal sigmoid polyp, rule out adenoma, B Transversecolon, rule out adenoma MICROSCOPIC DESCRIPTION Slides are reviewed. M ICROSCOPIC DIAGNOSIS A. Proximal sigmoid polyp, biopsy: Fragments of tubular adenoma. B. Transverse colon polyp, biopsy: Fragments of tubular adenoma. SJ:dustin 09/20/17 Signed _ Nacho Arodn 09/20/17 <signature on file> 98-Hkq-05229:24 METABOLIC PANEL, COMPREHENSIVE Comments: PATIENT NOT FASTINGPERFORMED BY: [facility] Fpqnwp7639 [facility] [id number] (90114) ALT (SGPT) 14 [iU]/L (Normal) Range: 0-32 [...] (Abnormal) Range: 65-99 :07 HgA1C , Office (20375) HgA1C , Office 7.2 % (Abnormal) Range: 4.6 - 7.1 :37 Clostridium difficile Toxin Comments: PATIENT NOT FASTINGPERFORMED BY: [employer] GlobeSherpa [facility] [id number] A+B, EIA (53279) C difficile Toxins A+B, EIA Negative (Normal) :37 LEUKOCYTE COUNT, FECAL (34338) Comments: PATIENT NOT FASTINGPERFORMED BY: [employer] Targeter App [facility] [id number] Result 1 NWBC (Normal) Comments: No white blood cells seen. White Blood Cells (WBC), Final report (Normal) Stool :37 OVA & PARASITE DIR SMEAR Comments: PATIENT NOT FASTINGPERFORMED BY: [employer] GlobeSher[employer] [facility] [id number] (15291) Result 1 NOCP (Normal) Comments: No ova, cysts, or parasites seen. Ova + Parasite Exam Final report (Normal) Comments: These results were obtained using wet preparation(s) and trichromestained smear. This test does not include testing for Cryptosporidiumparvum, Cyclospora, or Microsporidia. :37 SETH CULTURE-STOOL (46760) Comments: PATIENT NOT FASTINGPERFORMED BY: [employer] Tfpftf[address] [facility] [id number] Information: SRC:ST SRC:ST E coli Shiga Toxin EIA Negative (Normal) Result 1 NCI (Normal) Comments: No Campylobacter species isolated. Campylobacter Culture Final report (Normal) Result 1 NSS (Normal) Comments: No Salmonella or Shigella recovered. Salmonella/Shigella Screen Final report (Normal) :06 Renal function Panel Comments: fax copy to Dr. Santana [phone]; A courtesy copy of this report has been sent [phone].PATIENT NOT FASTINGPERFORMED BY: [employer] Cwwuus[address] Tidy BooksCone Health [id number] Information: NURSE DRAW (94994) Albumin 3.5 g/dL (Normal) Range: 3.5-4.8 Phosphorus [...] copy of this report has been sent [phone].PATIENT NOT FASTINGPERFORMED BY: STinser Xcpwde1437 [facility] [id number] :02 Range: 15-65 Vitamin D, 25-Hydroxy 34.7 ng/mL (Normal) Comments: A courtesy copy of this report has been sent [phone].PATIENT NOT FASTINGPERFORMED BY: [employer] Uwmcve8454 [facility] [id number] :02 Range: 30.0-100.0 Comments: Vitamin D deficiency has been defined by the [place] of[place]icine and an Endocrine Society practice guideline as alevel of serum 25-OH vitamin D less than 20 ng/mL (1,2).The Endocrine Society went on to further define vitamin Dinsufficiency as a level between 21 and 29 ng/mL (2).1. IOM ([place] of Medicine). 2010. Dietary reference intakes for calcium and D. [place]: The National Academies Press.2. Mira MF, Rosette LOPEZ, Tommy SWAIN, et al. Evaluation, treatment, and prevention of vitamin D deficiency: an Endocrine Society clinical practice guideline. JCEM. 2010; 96(7):1911-30. 7-Sib-801833:02 MICROALBUMIN: CREATININE RATIO Comments: send results to Dr. Santana fax: [phone]; A courtesy copy of this report has been sent [phone].PATIENT NOT FASTINGPERFORMED BY: Mogi[address] [facility] [id number] (07654) AND (78366) Alb/Creat Ratio 4191.2 {mg/g_creat} (Abnormal) Range: 0.0-30.0 Albumin, Urine 2380.6 ug/mL (Normal) Comments: Results confirmed ondilution. Creatinine, Urine 56.8 mg/dL (Normal) :02 CBC, PLATELETS & MANUAL Comments: send results to Dr. Santana fax: [phone]; A courtesy copy of this report has been sent [phone].PATIENT NOT FASTINGPERFORMED BY: [employer] Aobvws9160 [facility] [id number] Information: VIT D25, PTH DIFF (76758) Immature Grans (Abs) 0.0 {x10E3/uL} (Normal) Range: [...] 3.77-5.28 WBC 5.4 {x10E3/uL} (Normal) Range: 3.4-10.8 1-Tie-051939:02 MAGNESIUM (00021) Comments: send results to Dr. Santana fax: [phone]; A courtesy copy of this report has been sent [phone].PATIENT NOT FASTINGPERFORMED BY: [facility] Bswqhz2612 [facility] [id number] Magnesium, Serum 1.8 mg/dL (Normal) Range: 1.6-2.3 6-Moz-141192:02 RENAL FUNCTION PANEL (00510) Comments: send results to Dr. Santana fax: [phone]; A courtesy copy of this report has been sent [phone].PATIENT NOT FASTINGPERFORMED BY: STinser Lwnfvr4095 [facility] [id number] Albumin, Serum 3.7 g/dL (Normal) Range: 3.5-4.8 [...] Glucose, Serum 119 mg/dL (Abnormal) Range: 65-99 1-Mew-012188:07 LIPID PANEL (07930) Comments: PATIENT WAS FASTINGPERFORMED BY: Maozhaolin6370 [facility] [id number] LDL/HDL Ratio 1.4 {ratio} (Normal) Range: 0.0-3.2 Comments: LDL/HDL Ratio Men Women 1/2 Avg.Risk 1.0 1.5 Av g.Risk 3.6 3.2 2X Avg.Risk 6.2 5.0 3X Avg.Risk 8.0 6.1 LDL Cholesterol Calc 102 mg/dL (Abnormal) Range: 0-99 VLDL Cholesterol Cesar 17 mg/dL (Normal) Range: 5-40 HDL Cholesterol 75 mg/dL (Normal) Triglycerides 84 mg/dL (Normal) Range: 0-149 Cholesterol, Total 194 mg/dL (Normal) Range: 100-199 4-Pcw-272125:07 CBC W/AUTO DIFF WBC (74870) Comments: PATIENT WAS FASTINGPERFORMED BY: [employer] Jlmvzk4927 [facility] [id number] Immature Grans (Abs) 0.0 {x10E3/uL} (Normal) Range: [...] 3.77-5.28 WBC 4.8 {x10E3/uL} (Normal) Range: 3.4-10.8 1-Vts-744794:07 METABOLIC PANEL, COMPREHENSIVE Comments: PATIENT WAS FASTINGPERFORMED BY: LabCoRutgers - University Behavioral HealthCareLnsmui0002 [facility] [id number] (40063) ALT (SGPT) 14 [iU]/L (Normal) Range: 0-32 [...] 8-27 Glucose 158 mg/dL (Abnormal) Range: 65-99 6-Dtc-877797:07 VITAMIN B-12 (CYANOCOBALAMIN) Comments: PATIENT WAS FASTINGPERFORMED BY: LabCoRutgers - University Behavioral HealthCareZsoyje8250 [facility] [id number] (24503) Vitamin B12 771 pg/mL (Normal) Range: 232-1245 13-May-20170:00 CDIFF (Molecular) Comments: [facility] Udghadzoqe[address] [place], [place], [address] CDIFF See Note (Normal) Comments: Cdiff-MolecularNormal Reference Range = Negative C. Diff DNA Negative- No toxigenic C. Diff DNA DetectedNAAT METHOD Testing was performed using nucleic acid amplification 05-May-20179:32 Rapid Flu (37279 x 2) Influenza A Ag Negative (Normal) :35 CBC with auto diff (71185) Comments: PATIENT WAS FASTINGPERFORMED BY: LabCoRutgers - University Behavioral HealthCareLcackc1884 [facility] [id number] Immature Grans (Abs) 0.0 {x10E3/uL} (Normal) Range: [...] PANEL, COMPREHENSIVE Comments: PATIENT WAS FASTINGPERFORMED BY: LabCoRutgers - University Behavioral HealthCareRpudey6474 [facility] [id number] (80197) ALT (SGPT) 16 [iU]/L (Normal) Range: 0-32 [...] Glucose, Serum 145 mg/dL (Abnormal) Range: 65-99 85-Pbj-540583:51 HgA1C , Office (49686) HgA1C , Office 6.7 % (Normal) Range: 4.6 - 7.1 1-Caj-443910:50 CALCIFEDIOL (64463) Comments: A courtesy copy of this report has been sent [phone].PATIENT WAS FASTINGPERFORMED BY: LabHur[facility] Center6370 [facility] [id number] Vitamin D, 25-Hydroxy 40.7 ng/mL (Normal) Range: 30.0-100.0 Comments: Vitamin D deficiency has been defined by the [place] of[place]icine and an Endocrine Society practice guideline as alevel of serum 25-OH vitamin D less than 20 ng/mL (1,2).The Endocrine Society went on to further define vitamin Dinsufficiency as a level between 21 and 29 ng/mL (2).1. IOM ([place] of Medicine). 2010. Dietary reference intakes for calcium and D. [place]: The National Academies Press.2. Mira MF, Rosette NC, Tommy SWAIN, et al. Evaluation, treatment, and prevention of vitamin D deficiency: an Endocrine Society clinical practice guideline. JCEM. 2010; 96(7):1911-30. 6-Vai-925586:50 PTH (PARATHORMONE) (16519) Comments: A courtesy copy of this report has been sent [phone].PATIENT WAS FASTINGPERFORMED BY: [employer]70 MeritfulCritical access hospital [id number] PTH, Intact 20 pg/mL (Normal) Range: 15-65 6-Avw-269515:50 MICROALBUMIN: CREATININE RATIO Comments: A courtesy copy of this report has been sent [phone].PATIENT WAS FASTINGPERFORMED BY: [employer]otel70 [facility]itfulCritical access hospital [id number] (20922) AND (32413) Microalb/Creat Ratio 4376.0 {mg/g_creat} (Abnormal) Range: 0.0-30.0 Microalbumin, Urine 3369.5 ug/mL (Normal) Comments: Results confirmed ondilution. Creatinine, Urine 77.0 mg/dL (Normal) 0-Nlk-703441:50 Renal function Panel Comments: A courtesy copy of this report has been sent [phone].PATIENT WAS FASTINGPERFORMED BY: [employer] Xjzxdh8266 [address] [facility] [id number] Information: SARA SANTANA [phone] (08343) Albumin, Serum 3.8 g/dL (Normal) Range: 3.5-4.8 [...] Glucose, Serum 203 mg/dL (Abnormal) Range: 65-99 5-Shj-103826:50 Magnesium (61446) Comments: A courtesy copy of this report has been sent [phone].PATIENT WAS FASTINGPERFORMED BY: WellntelHurley Medical Center6370 [facility] [id number] Magnesium, Serum 1.8 mg/dL (Normal) Range: 1.6-2.3 :53 CBC with auto diff (03996) Comments: A courtesy copy of this report has been sent [phone].PATIENT WAS FASTINGPERFORMED BY: STinserRutgers - University Behavioral HealthCareOmuoyy6367 [facility] [id number] Immature Grans (Abs) 0.0 {x10E3/uL} (Normal) Range: [...] {x10E3/uL} (Normal) Range: 3.4-10.8 :53 LIPID PANEL (77545) Comments: A courtesy copy of this report has been sent [phone].PATIENT WAS FASTINGPERFORMED BY: [employer] Tngrvv8645 [facility] [id number] LDL/HDL Ratio 1.2 {ratio_units} (Normal) Range: 0.0-3.2 [...] copy of this report has been sent [phone].PATIENT WAS FASTINGPERFORMED BY: [place] BreweryRutgers - University Behavioral HealthCareAqebwi0908 [facility] [id number] (92459) ALT (SGPT) 11 [iU]/L (Normal) Range: 0-32 [...] Glucose, Serum 205 mg/dL (Abnormal) Range: 65-99 17-Nxd-568145:57 HgA1C , Office (65238) HgA1C , Office 7.1 % (Normal) Range: 4.6 - 7.1 :09 LIPID PANEL (29539) Comments: PATIENT WAS FASTINGPERFORMED BY: [employer] [facility] [id number] LDL/HDL Ratio 1.3 {ratio_units} (Normal) Range: 0.0-3.2 [...] PANEL, COMPREHENSIVE Comments: PATIENT WAS FASTINGPERFORMED BY: [facility]PeerCritical access hospital [id number] (23625) ALT (SGPT) 12 [iU]/L (Normal) Range: 0-32 [...] Glucose, Serum 152 mg/dL (Abnormal) Range: 65-99 9-Fdu-311544:50 HgA1C , Office (24572) HgA1C , Office 6.7 % (Normal) Range: 4.6 - 7.1 :25 Magnesium, Serum 1.9 mg/dL (Normal) Comments: PATIENT WAS FASTINGPERFORMED BY: EVE STinserRutgers - University Behavioral HealthCareSylmjl3520 [facility] [id number] Range: 1.6-2.3 :25 Microalb/Creat Ratio, [facility]The [facility] Comments: PATIENT WAS FASTINGPERFORMED BY: STinserCrownpoint Healthcare FacilityNqbrzy7888 [facility] [id number] Microalb/Creat Ratio 2652.0 {mg/g_creat} Range: 0.0-30.0 (Abnormal) Microalbumin, Urine 2482.3 ug/mL (Normal) Comments: Results confirmed ondilution. Creatinine, Urine 93.6 mg/dL (Normal) PTH, Intact 26 pg/mL (Normal) Comments: PATIENT WAS FASTINGPERFORMED BY: [facility] Xjeuqb0142 [address] RoadDublin [place] [id number] :25 Range: 15-65 :25 Renal Panel (10) Comments: PATIENT WAS FASTINGPERFORMED BY: [facility] Ymopfx[address] [facility] HospitalDublin [place] [id number] Phosphorus, Serum 4.3 mg/dL (Normal) Range: 2.5-4.5 :25 Thyroxine (T4) Free, Direct, S Comments: PATIENT WAS FASTINGPERFORMED BY: [facility]ntelCox [facility] Oovaqv1301 [address] [facility] HospitalD[facility] [place] [id number] T4,Free(Direct) 1.08 ng/dL (Normal) Range: 0.82-1.77 : TSH 2.980 {uIU/mL} Comments: PATIENT WAS FASTINGPERFORMED BY: [facility] Baemgt7237 [address] RoadDublin [place] [id number] 25 (Normal) Range: 0.450-4.500 : Vitamin D, 25-Hydroxy 37.1 ng/mL (Normal) Comments: PATIENT WAS FASTINGPERFORMED BY: [facility] Roaege6926 [address] RoadDublin [place] [id number] 25 Range: 30.0-100.0 Comments: Vitamin D deficiency has been defined by the [place] of[place]icine and an Endocrine Society practice guideline as alevel of serum 25-OH vitamin D less than 20 ng/mL (1,2).The Endocrine Society went on to further define vitamin Dinsufficiency as a level between 21 and 29 ng/mL (2).1. IOM ([place] of Medicine). 2010. Dietary reference intakes for calcium and D. [place]: The National Academies Press.2. Mira MF, Rosette LOPEZ, Tommy SWAIN, et al. Evaluation, treatment, and prevention of vitamin D deficiency: an Endocrine Society clinical practice guideline. JCEM. 2010; 96(7):1911-30. :25 CBC W/AUTO DIFF WBC (08730) Comments: PATIENT WAS FASTINGPERFORMED BY: [employer]70 MeritfulCritical access hospital [id number] Immature Grans (Abs) 0.0 {x10E3/uL} (Normal) Range: [...] PANEL, COMPREHENSIVE Comments: PATIENT WAS FASTINGPERFORMED BY: STinser Gwjmkl3810 [facility] [id number]; non- emergent till apt (61616) ALT (SGPT) 10 [iU]/L (Normal) Range: 0-32 [...] mg/dL (Abnormal) Range: 65-99 03-Aug-20169:25 LIPID PANEL (23576) Comments: PATIENT WAS FASTINGPERFORMED BY: [facility] Atsvjj5513 [facility] [id number] LDL/HDL Ratio 0.9 {ratio_units} (Normal) Range: 0.0-3.2 [...] (Normal) Range: 100-199 :54 HgA1C , Office (30418) HgA1C , Office 6.6 % (Normal) Range: 4.6 - 7.1 :1 Magnesium, Serum 2.1 mg/dL (Normal) Comments: PATIENT WAS FASTINGPERFORMED BY: [facility]PeerCritical access hospital [id number] 2 Range: 1.6-2.3 :12 Microalb/Creat Ratio, Randm Ur Comments: PATIENT WAS FASTINGPERFORMED BY: CoursePeerCritical access hospital [id number] Microalb/Creat Ratio 1863.4 {mg/g_creat} (Abnormal) Range: 0.0-30.0 Microalbumin, Urine 1416.2 ug/mL (Normal) Comments: Results confirmed ondilution. Creatinine, Urine 76.0 mg/dL (Normal) :12 Microscopic Examination Comments: PATIENT WAS FASTINGPERFORMED BY: CoursePeerCritical access hospital [id number] Bacteria None seen (Normal) Mucus Threads Present (Normal) Cast Type Hyaline casts (Normal) Casts Present {/lpf} (Abnormal) Epithelial Cells (non 0-10 {/hpf} Range: 0 - 10 renal) (Normal) RBC 3-10 {/hpf} Range: 0 - 2 (Abnormal) WBC 6-10 {/hpf} Range: 0 - 5 (Abnormal) PTH, Intact 36 pg/mL (Normal) Comments: PATIENT WAS FASTINGPERFORMED BY: CoursePeerCritical access hospital [id number] 0:12 Range: 15-65 Vitamin D, 25-Hydroxy 42.9 ng/mL (Normal) Comments: PATIENT WAS FASTINGPERFORMED BY: CoursePeerCritical access hospital [id number] 0:12 Range: 30.0-100.0 Comments: Vitamin D deficiency has been defined by the [place] of[place]icine and an Endocrine Society practice guideline as alevel of serum 25-OH vitamin D less than 20 ng/mL (1,2).The Endocrine Society went on to further define vitamin Dinsufficiency as a level between 21 and 29 ng/mL (2).1. IOM ([place] of Medicine). 2010. Dietary reference intakes for calcium and D. [place]: The National Academies Press.2. Mira MF, Rosette LOPEZ, Tommy SWAIN, et al. Evaluation, treatment, and prevention of vitamin D deficiency: an Endocrine Society clinical practice guideline. JCEM. 2010; 96(7):1911-30. 38-Kpv-062918:12 URINALYSIS, W/ MICRO (64231) Comments: PATIENT WAS FASTINGPERFORMED BY: niiu [place] [id number] Microscopic Examination See below: (Normal) Comments: Microscopic was indicated and was performed. Nitrite, Urine Negative (Normal) Urobilinogen,Semi-Qn 0.2 mg/dL (Normal) Range: 0.2-1.0 Bilirubin Negative (Normal) Occult Blood Negative (Normal) Ketones Negative (Normal) Glucose Negative (Normal) Protein 4+ (Abnormal) WBC Esterase Trace (Abnormal) Appearance Clear (Normal) Urine-Color Yellow (Normal) pH 6.0 (Normal) Range: 5.0-7.5 Specific Arnold 1.015 (Normal) Range: 1.005-1.030 87-Vxq-877263:12 CBC W/AUTO DIFF WBC (21798) Comments: PATIENT WAS FASTINGPERFORMED BY: [employer] LabCoOvo Cosmico70 Mer[address]fulblin [place] [id number] Immature Grans (Abs) 0.0 {x10E3/uL} (Normal) Range: [...] 3.77-5.28 WBC 6.2 {x10E3/uL} (Normal) Range: 3.4-10.8 17-Jkx-554575:12 METABOLIC PANEL, COMPREHENSIVE Comments: PATIENT WAS FASTINGPERFORMED BY: LabCoRutgers - University Behavioral HealthCareYztvqx5049 [facility] [id number] (25256) ALT (SGPT) 14 [iU]/L (Normal) Range: 0-32 [...] Glucose, Serum 154 mg/dL (Abnormal) Range: 65-99 44-Hus-669307:12 LIPID PANEL (92288) Comments: PATIENT WAS FASTINGPERFORMED BY: CoursePeerCritical access hospital [id number] LDL/HDL Ratio 0.7 {ratio_units} (Normal) Range: 0.0-3.2 Comments: LDL/HDL Ratio Men Women 1/2 Avg.Risk 1.0 1.5 Av g.Risk 3.6 3.2 2X Avg.Risk 6.2 5.0 3X Avg.Risk 8.0 6.1 LDL Cholesterol Calc 49 mg/dL (Normal) Range: 0-99 VLDL Cholesterol Cesar 14 mg/dL (Normal) Range: 5-40 HDL Cholesterol 75 mg/dL (Normal) Triglycerides 68 mg/dL (Normal) Range: 0-149 Cholesterol, Total 138 mg/dL (Normal) Range: 100-199 20-Cko-384723:50 HgA1C , Office (37396) HgA1C , Office 6.7 % (Normal) Range: 4.6 - 7.1 83-Rce-818290:36 VITAMIN B-12 (CYANOCOBALAMIN) Comments: PATIENT WAS FASTINGPERFORMED BY: [employer] Rescue SystemsC[facility] Health [id number] (36714) Vitamin B12 802 pg/mL (Normal) Range: 211-946 26-Xcs-743970:36 LIPID PANEL (89886) Comments: PATIENT WAS FASTINGPERFORMED BY: CoursePeerCritical access hospital [id number] LDL/HDL Ratio 0.8 {ratio_units} (Normal) Range: 0.0-3.2 [...] Cholesterol, Total 161 mg/dL (Normal) Range: 100-199 88-Uwg-299813:36 LDH (LD) (LACTATE DEHYDROGENASE) Comments: PATIENT WAS FASTINGPERFORMED BY: STinser Ywailq3593 [facility] [id number] (25810) LDH 217 [iU]/L (Normal) Range: 119-226 71-Tfb-866464:36 CBC W/AUTO DIFF WBC (42396) Comments: PATIENT WAS FASTINGPERFORMED BY: [employer] Rvjefd6089 [facility] [id number] Immature Grans (Abs) 0.0 {x10E3/uL} (Normal) Range: [...] 3.77-5.28 WBC 10.6 {x10E3/uL} (Normal) Range: 3.4-10.8 92-Adr-179582:36 METABOLIC PANEL, COMPREHENSIVE Comments: PATIENT WAS FASTINGPERFORMED BY: LabCoRutgers - University Behavioral HealthCareNuryin8658 [facility] [id number] (30192) ALT (SGPT) 15 [iU]/L (Normal) Range: 0-32 [...] Glucose, Serum 137 mg/dL (Abnormal) Range: 65-99 69-Wdc-353892:36 TSH (67752) Comments: PATIENT WAS FASTINGPERFORMED BY: Mogi6370 [facility] [id number] TSH 0.560 {uIU/mL} (Normal) Range: 0.450-4.500 :02 Renal function Panel (26663) Comments: PATIENT WAS FASTINGPERFORMED BY: Mogi6370 [facility] [id number] Albumin, Serum 3.7 g/dL (Normal) Range: 3.5-4.8 [...] 137 mg/dL (Abnormal) Range: 65-99 :02 MAGNESIUM (77625) Comments: PATIENT WAS FASTINGPERFORMED BY: [facility]6370 [facility] [id number] Magnesium, Serum 2.2 mg/dL (Normal) Range: 1.6-2.3 :02 MICROALBUMIN: CREATININE RATIO Comments: PATIENT WAS FASTINGPERFORMED BY: LabH[facility] Center6370 [facility] [id number] (98317) AND (39223) Microalb/Creat Ratio 2038.7 {mg/g_creat} (Abnormal) Range: 0.0-30.0 Microalbumin, Urine 1223.2 ug/mL (Normal) Comments: Results confirmed ondilution. Creatinine, Urine 60.0 mg/dL (Normal) :02 CBC WITH MANUAL DIFF Comments: PATIENT WAS FASTINGPERFORMED BY: [facility]6370 [facility] [id number] Information: [id number] [phone] (40066) Immature Grans (Abs) 0.0 {x10E3/uL} (Normal) Range: [...] {x10E3/uL} (Normal) Range: 3.4-10.8 :02 HGB A1C (81184) Comments: PATIENT WAS FASTINGPERFORMED BY: [employer] Lymvtj9836 [facility] [id number] Hemoglobin A1c 6.4 % (Abnormal) Range: 4.8-5.6 Comments: . Pre-diabetes: 5.7 - 6.4 Diabetes: >6.4 Glycemic control for adults with diabetes: <7.0 :02 Lipid Panel (23507) Comments: PATIENT WAS FASTINGPERFORMED BY: [employer] Zhsvwb1118 [facility] [id number] LDL/HDL Ratio 1.1 {ratio_units} (Normal) Range: 0.0-3.2 [...] (Normal) Range: 100-199 :03 HgA1C , Office (71999) HgA1C , Office 6.1 % (Normal) Range: 4.6 - 7.1 :24 CBC W/AUTO DIFF WBC Comments: PATIENT WAS FASTINGPERFORMED BY: LabCoRutgers - University Behavioral HealthCareJiamxj3027 [facility] [id number] Information: [id number] (54887) Immature Grans (Abs) 0.0 {x10E3/uL} (Normal) Range: [...] CREATININE RATIO Comments: PATIENT WAS FASTINGPERFORMED BY: LabCoRutgers - University Behavioral HealthCarePbslzs5460 [facility] [id number] (99595) AND (63198) Microalb/Creat Ratio 1223.8 {mg/g_creat} (Abnormal) Range: 0.0-30.0 Microalbumin, Urine 1012.1 ug/mL (Abnormal) Range: 0.0-17.0 Comments: Results confirmed ondilution. Creatinine, Urine 82.7 mg/dL (Normal) Range: 15.0-278.0 :24 METABOLIC PANEL, COMPREHENSIVE Comments: PATIENT WAS FASTINGPERFORMED BY: [employer] [facility] [id number] (67707) ALT (SGPT) 12 [iU]/L (Normal) Range: 0-32 [...] mg/dL (Abnormal) Range: 65-99 :24 LIPID PANEL (13451) Comments: PATIENT WAS FASTINGPERFORMED BY: CoursePeerCritical access hospital [id number] LDL/HDL Ratio 1.1 {ratio_units} (Normal) Range: 0.0-3.2 [...] Cholesterol, Total 150 mg/dL (Normal) Range: 100-199 87-Rbl-11661:30 CBC W/Diff, Automated Comments: [facility] S[address]sswefceq[address] [place], [address] Absolute Lymph 0.83 {X10_3/ul} (Normal) Range: 0.83-4.51 [...] (Normal) Range: 4.4-11.0 :30 Hemoglobin A1c Comments: [facility] Anbvzfglgo[address] [place], [place], [address] HGB A1C 6.1 % (Normal) Range: 4.2-6.3 45-[id number]:30 Magnesium Comments: [facility] [id number] [place], [place], [id number] MG 1.8 mg/dL (Normal) Range: 1.8-2.4 :30 Protein+Creatinine Ratio,Urine Comments: [facility] [id number] [place], [place], [id number] PROT:CRE RATIO 2121 {mg/g_CRE} (Abnormal) Range: 0-200 PROTEIN,UR.RAN. 164.2 mg/dL (Abnormal) UR CREAT 77.40 mg/dL (Normal) :30 Renal Profile Comments: [facility] [address] [place], [place], [id number] CO2 27.0 mmol/L (Normal) Range: 21.0-32.0 CL [...] 126 mg/dLsuggests DIABETES MELLITUS per A.D.A. criteria. 73-Snk-19390:00 24 HR UR Creatinine Clearance Comments: [facility] Ye[address] [place], [place], [address] CREAT CLEARANCE 24 ml/min (Abnormal) Range: 100-200 URINE CREAT 20.6 mg/dL (Normal) EST GFR - AA 38 mL/min (Abnormal) Comments: GFR Calc EST GFR 31 mL/min (Abnormal) Comments: Non- GFR Calc SERUM CREAT 1.7 mg/dL (Abnormal) Range: 0.6-1.0 UR TOTAL VOLUME 2800 mL (Normal) UR COLLECT TIME 24.0 {HOURS} (Normal) 49-Qao-94976:00 Protein, Urine 24HR Comments: [facility] [address] [place], [place], [id number] 24hr UR PROTEIN 1178.8 {mg/24HR} (Abnormal) URINE PROTEIN 42.1 mg/dL (Abnormal) UR TOTAL VOLUME 2800 mL (Normal) UR COLLECT TIME 24.0 {HOURS} (Normal) 9-Tlr-625873:29 Metabolic Panel, Basic Comments: PATIENT NOT FASTINGPERFORMED BY: LabCoRutgers - [facility] Behavioral HealthCareTnafmm1491 [facility] [id number] Information: [id number] (00502) Calcium, Serum 9.3 mg/dL (Normal) Range: 8.7-10.3 [...] Basic Comments: tuesday; PATIENT NOT FASTINGPERFORMED BY: STinser Targeter App [facility] [id number] Information: [id number] (18330) Calcium, Serum 9.0 mg/dL (Normal) Range: 8.7-10.3 [...] Glucose, Serum 149 mg/dL (Abnormal) Range: 65-99 97-Kld-135196:32 HgA1C , Office (73652) HgA1C , Office 6.2 % (Normal) Range: 4.6 - 7.1 :31 Rapid Strep Test, Office (31828) Comments: neg Rapid Strep Test, Office Negative (Normal) :06 THROAT CULTURE (84463) Comments: PATIENT NOT FASTINGPERFORMED BY: WellntelBarnes-Jewish West County HospitalTkkwsu8755 [facility] [id number] Information: [id number] Result 1 RRF (Normal) Comments: Routine respiratory luis Upper Respiratory Culture Final report (Normal) :52 TSH (91364) Comments: PATIENT WAS FASTINGPERFORMED BY: [facility] Center6370 [facility] [id number] TSH 2.190 {uIU/mL} (Normal) Range: 0.450-4.500 :52 Vitamin D Hydroxy (85929) Comments: PATIENT WAS FASTINGPERFORMED BY: [facility]CoR[facility] - [facility] Behavioral HealthCareLoazxq8515 [facility] [id number] Vitamin D, 25-Hydroxy 43.8 ng/mL (Normal) Range: 30.0-100.0 Comments: Vitamin D deficiency has been defined by the [place] of[place]icine and an Endocrine Society practice guideline as alevel of serum 25-OH vitamin D less than 20 ng/mL (1,2).The Endocrine Society went on to further define vitamin Dinsufficiency as a level between 21 and 29 ng/mL (2).1. IOM ([place] of Medicine). 2010. Dietary reference intakes for calcium and D. [place]: The National Academies Press.2. Mira MF, Rosette [place], Tommy SWAIN, et al. Evaluation, treatment, and prevention of vitamin D deficiency: an Endocrine Society clinical practice guideline. JCEM. 2010; 96(7):1911-30. :52 LIPID PANEL (35905) Comments: PATIENT WAS FASTINGPERFORMED BY: LabCoR[facility] - [facility] Behavioral HealthCareUiwipx0111 [facility] [id number] LDL/HDL Ratio 1.3 {ratio_units} (Normal) Range: 0.0-3.2 [...] auto diff Comments: PATIENT WAS FASTINGPERFORMED BY: [facility]6370 [facility] [id number] Information: [id number] (64255) Immature Grans (Abs) 0.0 {x10E3/uL} (Normal) Range: [...] PANEL, COMPREHENSIVE Comments: PATIENT WAS FASTINGPERFORMED BY: [facility] HospitalCoRutgers - [facility] Behavioral HealthCareLzunqb3041 [facility] [id number] (87416) ALT (SGPT) 19 [iU]/L (Normal) Range: 0-32 [...] Glucose, Serum 127 mg/dL (Abnormal) Range: 65-99 6-Ubx-737542:08 HgA1C , Office (29799) HgA1C , Office 6.4 % (Normal) Range: 4.6 - 7.1 9-Pgl-579217:00 Creatinine Clearance Comments: PATIENT NOT FASTINGPERFORMED BY: [facility] Eingbi0087 [facility] [id number] Information: [id number] S TART Creatinine Clearance 33 mL/min (Abnormal) Range: 88-128 Comments: The above range is based on 1.73 square meter average body surfacearea. Creatinine, Ur 24hr 642.0 {mg/24_hr} (Abnormal) Range: 800.0-1800.0 Creatinine, Urine 34.7 mg/dL (Normal) Range: 15.0-278.0 eGFR If Africn Am 43 mL/min/1.73 (Abnormal) eGFR If NonAfricn Am 37 mL/min/1.73 (Abnormal) Creatinine, Serum 1.37 mg/dL (Abnormal) Range: 0.57-1.00 8-Qgn-243908:00 Protein Total, Qn, 24-Hr Comments: PATIENT NOT FASTINGPERFORMED BY: [facility] Xduzqt1724 [facility] [id number] Urine Prot,24hr calculated 1309.8 {mg/24_hr} (Abnormal) Range: 30.0-150.0 Protein,Total,Urine 70.8 mg/dL (Abnormal) Range: 0.0-15.0 :01 CBC W/Diff, Automated Comments: Test performed at:[facility] P[address]jenelrv[address] Saini[address] [place], [place] [address] Absolute Neut 3.1 {X10_3/uL} (Normal) Range: 2.0-7.7 [...] Range: 4.4-11.0 :01 Magnesium Comments: Test performed at:[facility] [address] [place] [address] MG 2.0 mg/dL (Normal) Range: 1.8-2.4 :01 Protein+Creatinine Ratio,Urine Comments: Test performed at:[facility] [address] [place] [address]907 PROT:CRE RATIO 2232 {mg/g_CRE} (Abnormal) Range: 0-200 PROTEIN,UR.RAN. 160.3 mg/dL (Abnormal) UR CREAT 71.8 mg/dL (Normal) :01 Renal Profile Comments: Test performed at:[facility] N[address] [place] [address] CO2 32.0 mmol/L (Normal) Range: 21.0-32.0 CL [...] mg/dL (Normal) Range: 70-110 :08 LIPID PANEL (77263) Comments: PATIENT WAS FASTINGPERFORMED BY: LabCoR[facility] - [facility] Behavioral HealthCareUyvryz3470 [facility] [id number] LDL/HDL Ratio 1.0 {ratio_units} (Normal) Range: 0.0-3.2 [...] Cholesterol, Total 149 mg/dL (Normal) Range: 100-199 65-Oqp-36780:08 METABOLIC PANEL, Comments: PATIENT WAS FASTINGPERFORMED BY: LabCoR[facility] - [facility] Behavioral HealthCareHvbbpc9977 [facility] [id number] Information: [id number] COMPREHENSIVE (71255) ALT (SGPT) 29 [iU]/L (Normal) Range: 0-32 [...] (Abnormal) Range: 65-99 :59 HgA1C , Office (01950) HgA1C , Office 6.5 % (Normal) Range: 4.6 - 7.1 :54 CBC W/AUTO DIFF WBC Comments: PATIENT WAS FASTINGPERFORMED BY: [facility]6370 [facility] [id number] Information: [id number] (73326) Immature Grans (Abs) 0.0 {x10E3/uL} (Normal) Range: [...] COMPREHENSIVE Comments: PATIENT WAS FASTINGPERFORMED BY: [employer]E [employer]70 [facility] [id number]; non- emergent till apt (45119) ALT (SGPT) 13 [iU]/L (Normal) Range: 0-32 [...] mg/dL (Abnormal) Range: 65-99 :54 LIPID PANEL (93930) Comments: PATIENT WAS FASTINGPERFORMED BY: [employer]6370 [facility] [id number] LDL/HDL Ratio 1.1 {ratio_units} (Normal) Range: 0.0-3.2 [...] (Normal) Range: 100-199 :29 HgA1C , Office (85519) HgA1C , Office 6.6 % (Normal) Range: 4.6 - 7.1 :12 CBC W/Diff, Automated Comments: Test performed at:[facility] [address]xbxph[address] [place] [address] ; handled by Dr. Santana Absolute Lymph [...] Range: 4.4-11.0 :12 Magnesium Comments: Test performed at:[facility] [address] [place] [address]260 MG 2.0 mg/dL (Normal) Range: 1.8-2.4 :12 Microalb:Creat Ratio,Random UR Comments: Test performed at:[facility] [address] [place] [address] ; Dr. Angelo LING:CREAT 1483.0 {mg/g_CRE} (Abnormal) MICROALBUMIN,UR 918.0 mg/L (Normal) UR CREAT 61.9 mg/dL (Normal) :12 Renal Profile Comments: Test performed at:[facility] [address] [place] [address] CO2 29.0 mmol/L (Normal) Range: 21.0-32.0 CL [...] 126 mg/dLsuggests DIABETES MELLITUS per A.D.A. criteria. 12-Vmp-326887:20 LIPID PANEL (05292) Comments: PATIENT WAS FASTINGPERFORMED BY: [facility]el[facility] Center6370 [facility] [id number] LDL/HDL Ratio 1.0 {ratio_units} (Normal) Range: 0.0-3.2 [...] Cholesterol, Total 151 mg/dL (Normal) Range: 100-199 97-Igo-630626:20 METABOLIC PANEL, Comments: PATIENT WAS FASTINGPERFORMED BY: STinserRutgers - University Behavioral HealthCareCpbbrc8673 [facility] [id number] Information: [id number] COMPREHENSIVE (51351) ALT (SGPT) 16 [iU]/L (Normal) Range: 0-32 [...] Glucose, Serum 148 mg/dL (Abnormal) Range: 65-99 74-Zvv-405925:21 CREATININE CLEARANCE Comments: PATIENT WAS FASTINGPERFORMED BY: [employer] [facility] [id number] Information: [id number] START 04/02/14@9AM FINISH 04/03/14 6:00 AM (99558) Creatinine Clearance 42 mL/min (Abnormal) Range: 88-128 Comments: The above range is based on 1.73 square meter average body surfacearea. Creatinine, Ur 24hr 812.3 {mg/24_hr} (Normal) Range: 800.0-1800.0 Creatinine, Urine 28.5 mg/dL (Normal) Range: 15.0-278.0 eGFR If Africn Am 45 mL/min/1.73 (Abnormal) eGFR If NonAfricn Am 39 mL/min/1.73 (Abnormal) Creatinine, Serum 1.33 mg/dL (Abnormal) Range: 0.57-1.00 12-Qcx-981658:21 Total Protein,24 Hour Urine Comments: PATIENT WAS FASTINGPERFORMED BY: [employer]70 [facility] [id number] (67282) Prot,24hr calculated 1559.0 {mg/24_hr} (Abnormal) Range: 30.0-150.0 Protein,Total,Urine 54.7 mg/dL (Abnormal) Range: 0.0-15.0 :57 LIPID PANEL (33266) Comments: PATIENT WAS FASTINGPERFORMED BY: [employer] [facility] [id number] LDL/HDL Ratio 1.1 {ratio_units} (Normal) Range: 0.0-3.2 [...] MANUAL DIFF Comments: PATIENT WAS FASTINGPERFORMED BY: LabCoR[facility] - [facility] Behavioral HealthCareQzehap7535 [facility] [id number] Information: [id number] (60886) Immature Grans (Abs) 0.0 {x10E3/uL} (Normal) Range: [...] PANEL, COMPREHENSIVE Comments: PATIENT WAS FASTINGPERFORMED BY: [employer] [facility]Sher[facility] [id number] (51796) ALT (SGPT) 10 [iU]/L (Normal) Range: 0-32 [...] Comments: Result Units: mg/dL AdultPerformed at: [facility] STinser Targeter App [place], [place] [address]Vhe Director: Yousuf Bernardo PhD, Phone: [phone] C4 37 (Abnormal) Range: 9-36 0 [...] 75.6 mg/dL (Abnormal) CREU 49.3 mg/dL (Normal) 19-Xmq-36495:21 CBC WITH MANUAL DIFF Comments: PATIENT WAS FASTINGPERFORMED BY: [facility]6370 [facility] [id number] Information: [id number] (35296) Immature Grans (Abs) 0.0 {x10E3/uL} (Normal) Range: [...] 3.77-5.28 WBC 4.5 {x10E3/uL} (Normal) Range: 3.4-10.8 87-Bcd-06667:21 METABOLIC PANEL, COMPREHENSIVE Comments: PATIENT WAS FASTINGPERFORMED BY: LabCoRutgers - [facility] Behavioral HealthCareUdpphp3290 [facility] [id number] (48844) ALT (SGPT) 16 [iU]/L (Normal) Range: 0-32 [...] CREATININE CLEARANCE Comments: PATIENT NOT FASTINGPERFORMED BY: [employer] Hvliaq5912 [facility] [id number] Information: [id number] START 10/30/13@8AM F INISH 10/31/13@8AM 2650ML (65940) Creatinine Clearance 44 mL/min (Abnormal) Range: 88-128 [...] Hour Urine Comments: PATIENT NOT FASTINGPERFORMED BY: [employer]70 [facility] [id number] (73916) Prot,24hr calculated 3458.3 {mg/24_hr} (Abnormal) Range: 30.0-150.0 Protein,Total,Urine 130.5 mg/dL (Abnormal) Range: 0.0-15.0 08-Mok-055397:31 HgA1C , Office (75287) HgA1C , Office 6.4 % (Normal) Range: 4.6 - 7.1 12-Xac-914609:27 Microscopic Examination Comments: PATIENT WAS FASTINGPERFORMED BY: STinserCrownpoint Healthcare FacilityQouzkf8511 [facility] [id number] Bacteria Few (Normal) Mucus Threads Present (Normal) Epithelial Cells (non renal) 0-10 {/hpf} (Normal) Range: 0 - 10 RBC 3-10 {/hpf} (Abnormal) Range: 0 - 2 WBC 6-10 {/hpf} (Abnormal) Range: 0 - 5 :32 LIPID PANEL (84085) Comments: PATIENT WAS FASTINGPERFORMED BY: STinser [employer] [facility] [id number] LDL/HDL Ratio 1.0 {ratio_units} (Normal) Range: 0.0-3.2 [...] CREATININE RATIO Comments: PATIENT WAS FASTINGPERFORMED BY: STinserRutgers - University Behavioral HealthCareYadfxp0717 [facility] [id number] (28638) AND (94101) Microalb/Creat Ratio 1998.9 {mg/g_creat} (Abnormal) Range: 0.0-30.0 Creatinine, Urine 73.4 mg/dL (Normal) Range: 15.0-278.0 Microalbumin, Urine 1467.2 ug/mL (Abnormal) Range: 0.0-17.0 :32 URINALYSIS, W/ MICRO (03823) Comments: PATIENT WAS FASTINGPERFORMED BY: [facility]6370 [facility] [id number] Microscopic Examination See below: (Normal) Comments: Microscopic was indicated and was performed. Nitrite, Urine Negative (Normal) Urobilinogen,Semi-Qn 0.2 mg/dL (Normal) Range: 0.0-1.9 Bilirubin Negative (Normal) Occult Blood Trace (Abnormal) Ketones Negative (Normal) Glucose Negative (Normal) Protein 3+ (Abnormal) WBC Esterase Trace (Abnormal) Appearance Clear (Normal) Urine-Color Yellow (Normal) pH 6.5 (Normal) Range: 5.0-7.5 Specific Arnold 1.015 (Normal) Range: 1.005-1.030 03-Bgp-64560:32 CBC WITH MANUAL DIFF Comments: PATIENT WAS FASTINGPERFORMED BY: LabCoR[facility] - [facility] Behavioral HealthCareNasygp1072 [facility] [id number] Information: [id number] (98836) Immature Grans (Abs) 0.0 {x10E3/uL} (Normal) Range: [...] PANEL, COMPREHENSIVE Comments: PATIENT WAS FASTINGPERFORMED BY: [employer]70 [facility] [id number] (09893) ALT (SGPT) 16 [iU]/L (Normal) Range: 0-32 [...] B-12 (CYANOCOBALAMIN) Comments: PATIENT WAS FASTINGPERFORMED BY: [employer]ogi6370 [facility] [id number] (06000) Vitamin B12 >1999 pg/mL (Abnormal) Range: 211-946 76-Sam-432740:01 HgA1C , Office (51583) HgA1C , Office 6.4 % (Normal) Range: 4.6 - 7.1 :37 METABOLIC PANEL, COMPREHENSIVE Comments: PATIENT WAS FASTINGPERFORMED BY: [employer]70 [facility] [id number] (55793) ALT (SGPT) 12 [iU]/L (Normal) Range: 0-32 [...] (Abnormal) Range: 65-99 :37 Vitamin D Hydroxy (09130) Comments: PATIENT WAS FASTINGPERFORMED BY: [employer]70 [facility] [id number] Vitamin D, 25-Hydroxy 47.4 ng/mL (Normal) Range: 30.0-100.0 Comments: Vitamin D deficiency has been defined by the [place] of[place]icine and an Endocrine Society practice guideline as alevel of serum 25-OH vitamin D less than 20 ng/mL (1,2).The Endocrine Society went on to further define vitamin Dinsufficiency as a level between 21 and 29 ng/mL (2).1. IOM ([place] of Medicine). 2010. Dietary reference intakes for calcium and D. [place]: The National AcademVidBid Press.2. Mira MF, Rosette [place], Tommy SWAIN, et al. Evaluation, treatment, and prevention of vitamin D deficiency: an Endocrine Society clinical practice guideline. JCEM. 2010; 96(7):1911-30. :37 LIPID PANEL (82850) Comments: PATIENT WAS FASTINGPERFORMED BY: Mogi6370 [facility] [id number] LDL/HDL Ratio 1.2 {ratio_units} (Normal) Range: 0.0-3.2 [...] MANUAL DIFF Comments: PATIENT WAS FASTINGPERFORMED BY: [facility]ogi6370 [facility] [id number] Information: [id number] (38510) Immature Grans (Abs) 0.0 {x10E3/uL} (Normal) Range: [...] Qn, 24-Hr Comments: PATIENT NOT FASTINGPERFORMED BY: [employer] Xixijc0305 [facility] [id number] Information: ADD [id number] AND DRAW FEE 99 6660 VOLUME 2600 164LBS 5' '3 Urine Prot,24hr calculated 920.4 {mg/24_hr} Range: 30.0-150.0 (Abnormal) Protein,Total,Urine 35.4 mg/dL Range: 0.0-15.0 (Abnormal) : Written Authorization WAR (Normal) Comments: PATIENT NOT FASTINGPERFORMED BY: STinser Clfhmj4999 [facility] [id number] Comments: Written Authorization Received.Authorization received from Chiqui BRICEÑO LPN 90-07-2197Wkliho by Marleen Sharma :52 Metabolic Panel, Basic Comments: PATIENT NOT FASTINGPERFORMED BY: [employer] Ernmuj3209 [facility] [id number] Information: ADD [id number] AND DRAW FEE 99 6660 VOLUME 2600 164LBS 5' '3 (72762) Calcium, Serum 9.7 mg/dL (Normal) Range: 8.6-10.2 [...] mg/dL (Abnormal) Range: 65-99 :52 CREATININE CLEARANCE (50547) Comments: PATIENT NOT FASTINGPERFORMED BY: STinser Ncplaz3405 [facility] [id number] Creatinine Clearance 46 mL/min (Abnormal) Range: 88-128 Comments: The above range is based on 1.73 square meter average body surfacearea. Creatinine, Ur 24hr 899.6 {mg/24_hr} (Normal) Range: 800.0-1800.0 Creatinine, Urine 34.6 mg/dL (Normal) Range: 15.0-278.0 :52 24 hour urine for Protein Comments: PATIENT NOT FASTINGPERFORMED BY: [employer] Jcvroy1655 [facility] [id number] (31185) Microalb/Creat Ratio 695.4 {mg/g_creat} (Abnormal) Range: 0.0-30.0 Microalbumin, Urine 240.6 ug/mL (Abnormal) Range: 0.0-17.0 1-Ehc-486968:13 HgA1C , Office (82078) HgA1C , Office 6.3 % (Normal) Range: 4.6 - 7.1 :01 Blood Glucose , Office (52456) Blood Glucose , Office 162 (Normal) 87-Ucf-019387:02 Microscopic Examination Comments: PATIENT NOT FASTINGPERFORMED BY: [facility] Xbpfek2152 Willoughby RoadDublDeaconess Hospital [id number] Bacteria Few (Normal) Mucus Threads Present (Normal) [...] Hebert M.D.October 19, 2012 at 2:42:14 PM [id number] Signed GP/GP If you are the referring physician and would like to consult [facility] theradiologist who provided this interpretation, please contact Yasmany Pond at [phone]. If this radiologist is unavailable, youwill be directed to another radiologist to assist. If y ou are a patient with a question regarding this report, pleasecontactyour referring physician directly. Professional Interpretation Provided By: [employer], Phone , These documents contain legally protected [...] 10/19/12 1444 Sign by: Misael Hebert MD 19-Ltz-949937:59 TSH (45351) Comments: PATIENT WAS FASTINGPERFORMED BY: [facility]6370 [facility] [id number] TSH 1.230 {uIU/mL} (Normal) Range: 0.450-4.500 :59 LIPID PANEL (19554) Comments: PATIENT WAS FASTINGPERFORMED BY: [facility]6370 [facility] [id number] LDL/HDL Ratio 0.5 {ratio_units} (Normal) Range: 0.0-3.2 LDL Cholesterol Calc 47 mg/dL (Normal) Range: 0-99 Cholesterol, Total 149 mg/dL (Normal) Range: 100-199 HDL Cholesterol 91 mg/dL (Normal) Comments: According to ATP-III Guidelines, HDL-C >59 mg/dL is considered anegative risk factor for CHD. Triglycerides 57 mg/dL (Normal) Range: 0-149 VLDL Cholesterol Cesar 11 mg/dL (Normal) Range: 5-40 97-Hcs-339533:02 URINALYSIS, W/ MICRO Comments: PATIENT NOT FASTINGPERFORMED BY: [facility]6370 [facility] [id number] Information: [id number] (66282) Microscopic Examination See below: (Normal) Nitrite, Urine Negative (Normal) Bilirubin Negative (Normal) Urobilinogen,Semi-Qn 0.2 mg/dL (Normal) Range: 0.0-1.9 Occult Blood Negative (Normal) Ketones Negative (Normal) Glucose Negative (Normal) Protein 3+ (Abnormal) WBC Esterase Negative (Normal) Appearance Clear (Normal) Urine-Color Yellow (Normal) pH 5.5 (Normal) Range: 5.0-7.5 Specific Arnold 1.015 (Normal) Range: 1.005-1.030 :59 CBC WITH MANUAL DIFF Comments: PATIENT WAS FASTINGPERFORMED BY: [facility]6370 [facility] [id number] Information: [id number] (29969) Immature Grans (Abs) 0.0 {x10E3/uL} (Normal) Range: [...] 3.77-5.28 WBC 4.8 {x10E3/uL} (Normal) Range: 3.4-10.8 70-Yag-725244:59 METABOLIC PANEL, COMPREHENSIVE Comments: PATIENT WAS FASTINGPERFORMED BY: LabCoRutgers - University Behavioral HealthCareIfqsnp2540 [facility] [id number] (15963) ALT (SGPT) 14 [iU]/L (Normal) Range: 0-32 [...] Glucose, Serum 104 mg/dL (Abnormal) Range: 65-99 6-Lxa-096423:37 HgA1C , Office (02956) HgA1C , Office 6.0 % (Normal) Range: 4.6 - 7.1 6-Jtm-381272:31 CRE CREAT 1.3 mg/dL (Abnormal) Range: 0.6-1.0 [...] Galan M.D.August 09, 2012 at 2:38:03 PM [id number] Signed PV/PV If you are the referring physician and would like to consult with theradiologist who provided this interpretation, please contact Donna Burnett M.D. at [phone]. If this radiologist is unavailable, youwillbe directed to another radiologist to assist. If you are a patient with a question regarding this report, pleasecontactyour referring physician evelyne carreractly. Professional Interpretation Provided By: [employer], Phone , These documents contain legally protected [...] 08/09/12 1441 Sign by: Donna Martin MD 74-Mcg-975198:31 CBC with manual diff Comments: PATIENT NOT FASTINGPERFORMED BY: [facility] Ixbnyd5325 [facility] [id number] Information: [id number] (95897) Immature Grans (Abs) 0.0 {x10E3/uL} (Normal) Range: [...] 3.77-5.28 WBC 3.2 {x10E3/uL} (Abnormal) Range: 4.0-10.5 94-Vhi-132970:31 Metabolic Panel, Comprehensive Comments: PATIENT NOT FASTINGPERFORMED BY: LabCoRutgers - University Behavioral HealthCareSilrbi6313 [facility] [id number] (72278) ALT (SGPT) 19 [iU]/L (Normal) Range: 0-32 [...] mg/dL (Abnormal) Range: 65-99 :31 LIPID PANEL (37447) Comments: PATIENT WAS FASTINGPERFORMED BY: Maozhaolin6370 [facility] [id number] LDL/HDL Ratio 0.8 {ratio_units} (Normal) Range: 0.0-3.2 [...] MANUAL DIFF Comments: PATIENT WAS FASTINGPERFORMED BY: LabCox Communications6370 [facility] [id number] Information: [id number] (88247) Immature Grans (Abs) 0.0 {x10E3/uL} (Normal) Range: [...] PANEL, COMPREHENSIVE Comments: PATIENT WAS FASTINGPERFORMED BY: LabCoRut[facility] - [facility] Behavioral HealthCareQnurzi9079 [facility] [id number] (53084) ALT (SGPT) 22 [iU]/L (Normal) Range: 0-32 [...] (Abnormal) Range: 65-99 :45 HgA1C , Office (71714) HgA1C , Office 6.1 % (Normal) Range: 4.6 - 7.1 79-Nax-576365:16 CRE CREAT 1.1 mg/dL (Abnormal) Range: 0.6-1.0 11-Vkp-92471:00 BRAIN W/WO CONTRAST Radiology Report See Note [...] Galan M.D.February 02, 2012 at 5:10:18 PM [id number] Signed PV/PV If you are the referring physician and w sarahild like to consult with theradiologist who provided this interpretation, please contact Donna Burnett M.D. at [phone]. If this radiologist is unavailable, youwillbe directed to another radiol ogist to assist. If you are a patient with a question regarding this report, pleasecontactyour referring physician directly. Professional Interpretation Provided By: [employer], Phone ,Fa x [phone] These documents contain legally protected and confidential [...] 1714 S ign by: Donna Martin MD 20-Nyy-527714:16 DEXA BONE DENSITY STUDY (HP) Radiology Report [...] Coronel M.D.January 20, 2012 at 2:43:46 PM [phone] Signed KERA/KERA If you ar e the [...] on 01/20/121446 Sign by: David Coronel MD 79-Ect-141703:15 BILAT SCRN DIGITAL & CAD Radiology Report [...] Coronel M.D.January 20, 2012 at 1:20:11 PM [phone] Signed KERA/KERA If you are the referring physician and would like to consult with theradiologist who provided this interpretation, please contact Yasmany Parnell at . If this radiologist is unavailable,youwill be directed to another radiologist to assist. If you are a patient with a question regarding this report, pleasecontactyour referring physician directly. Professional Interpretation Provided By: [employer], Phone , These documents contain legally protected [...] 01/20/12 1324 Sign by: David Coronel MD 5-Uvr-542904:56 PELVIC (NON ) Radiology Report See Note [...] Vuong M.D.January 10, 2012 at 8:39:09 PM [id number] Signed JL/JOHNNY If you are the referring physician and would like to consult with theradiologist who provided this inte rpretation, please contact Radha Vuong M.D. at [phone]. If this radiologist is unavailable, you will bedirected to another radiologist to assist. If you are a patient with a question regarding this r eport, pleasecontactyour referring physician directly. Professional Interpretation Provided By: [employer]vas, Phone , PROCEDURE: ULTRASOUND OF THE FEMALE [...] Vuong M.D.January 10, 2012 at 8:40:07 PM [id number] Signed JL/JL If you are the referring physician and would like to consult with theradiologist who provided this interpretation, please contact Radha Vuong M.D. at [phone]. If this radiologist is unavailable, you will bedirected to another radiologist to assist. If you are a patient with a question regarding this report, pleasecontactyour referring ph ysician directly. Professional Interpretation Provided By: Canvas, Phone , These documents contain legally protected [...] RATIO Comments: PATIENT WAS FASTINGPERFORMED BY: [facility]Co Cfynoy1336 [facility] [id number] (79384) AND (11350) Microalb/Creat Ratio 829.4 {mg/g_creat} (Abnormal) Range: 0.0-30.0 Microalbumin, Urine 437.1 ug/mL (Abnormal) Range: 0.0-17.0 Creatinine, Urine 52.7 mg/dL (Normal) Range: 15.0-278.0 :35 CBC WITH MANUAL DIFF Comments: PATIENT WAS FASTINGPERFORMED BY: [facility] Woltll8099 [facility] [id number] Information: [id number] (67692) Immature Grans (Abs) 0.0 {x10E3/uL} (Normal) Range: [...] 3.77-5.28 WBC 3.7 {x10E3/uL} (Abnormal) Range: 4.0-10.5 44-Sqz-62966:35 METABOLIC PANEL, COMPREHENSIVE Comments: PATIENT WAS FASTINGPERFORMED BY: LabCoRutgers - University Behavioral HealthCareMzrscc3538 [facility] [id number] (49659) ALT (SGPT) 15 [iU]/L (Normal) Range: 0-32 [...] mg/dL (Abnormal) Range: 65-99 :35 LIPID PANEL (75234) Comments: PATIENT WAS FASTINGPERFORMED BY: STinserRutgers - University Behavioral HealthCareAkzofy7175 [facility] [id number] LDL/HDL Ratio 0.9 {ratio_units} (Normal) Range: 0.0-3.2 LDL Cholesterol Calc 72 mg/dL (Normal) Range: 0-99 HDL Cholesterol 83 mg/dL (Normal) Comments: According to ATP-III Guidelines, HDL-C >59 mg/dL is considered anegative risk factor for CHD. VLDL Cholesterol Cesar 18 mg/dL (Normal) Range: 5-40 Triglycerides 90 mg/dL (Normal) Range: 0-149 Cholesterol, Total 173 mg/dL (Normal) Range: 100-199 :15 HgA1C , Office (19315) HgA1C , Office 6.2 % (Normal) Range: 4.6 - 7.1 :30 CBC WITH MANUAL DIFF Comments: PATIENT WAS FASTINGPERFORMED BY: STinserRutgers - University Behavioral HealthCareUfwpft5204 [facility] [id number] Information: [id number] (58478) Immature Grans (Abs) 0.0 {x10E3/uL} (Normal) Range: [...] 3.77-5.28 WBC 4.2 {x10E3/uL} (Normal) Range: 4.0-10.5 55-Uqu-78098:30 METABOLIC PANEL, COMPREHENSIVE Comments: PATIENT WAS FASTINGPERFORMED BY: LabCoRutgers - University Behavioral HealthCareUehwzw6366 [facility] [id number] (85586) ALT (SGPT) 19 [iU]/L (Normal) Range: 0-40 [...] mg/dL (Abnormal) Range: 65-99 :30 LIPID PANEL (07868) Comments: PATIENT WAS FASTINGPERFORMED BY: LabCoRutgers - University Behavioral HealthCareLuadyv7126 [facility] [id number] LDL/HDL Ratio 0.9 {ratio_units} (Normal) Range: 0.0-3.2 [...] 100-199 Comments: Please note reference interval change 52-Dwb-555927:48 Rapid Flu (03089 x 2) Influenza A Ag negative (Normal) [...] redmond M.D.November 05, 2011 at 3:25:08 PM [id number] Signed GP/GP If you are the referring physician and would like to consult with theradiologist who provided this interpretation, please contact Yasmany Pond at [phone]. If this radiologist is unavailable, youwill be directed to another radiologist to assist. If you are a patient with a question regarding this report, ple asecontactyour referring physician directly. Professional Interpretation Provided By: [employer]vas, Phone , These documents contain legally protected [...] redmond M.D.November 05, 2011 at 3:25:08 PM [id number] Signed GP/GP If you are the referring physician and would like to consult with theradiologist who provided this interpretation, please contact Yasmany Pond at [phone]. If this radiologist is unavailable, youwill be directed to another radiologist to assist. If you are a patient with a question regarding this report, ple asecontactyour referring physician directly. Professional Interpretation Provided By: Canvas, Phone , These documents contain legally protected [...] 11/05/11 1552 Sign by: Misael Hebert MD 00-Jpn-978493:20 METABOLIC PANEL, Comments: PATIENT WAS FASTINGPERFORMED BY: LabCoRutgers - University Behavioral HealthCareWqxnxg3222 [facility] [id number] Information: [id number],2ND ORDER NO DRAW F EE COMPREHENSIVE (11890) ALT (SGPT) 31 [iU]/L (Normal) Range: 0-40 [...] Glucose, Serum 155 mg/dL (Abnormal) Range: 65-99 88-Xag-96179:49 Creatinine Clearance Comments: PATIENT WAS FASTINGPERFORMED BY: EVE [facility] Lppyfe7739 [facility] [id number] Information: 10/30@6AM 10/31@730AM Creatinine Clearance 58 mL/min [...] 24-Hr Comments: PATIENT WAS FASTINGPERFORMED BY: [facility] Mmcxhm9127 [address] [place] [id number] Urine Prot,24hr calculated 1023.8 {mg/24_hr} (Abnormal) Range: 30.0-150.0 Protein,Total,Urine 52.5 mg/dL (Abnormal) Range: 0.0-15.0 :04 HgA1C , Office (27315) HgA1C , Office 6.1 % (Normal) Range: [...] regarding this repor t, please call our 80H4fhrljns line @ Dictated on 07/27/11 1040 by GAYE PEREZ MD RTranscribed on 07/28/11 122 by ITS IMPORTSign by GAYE PEREZ MD on 07/28/115 Sign by: GAYE PEREZ MD 91-Mpp-03815:54 Vitamin D Hydroxy (02626) Comments: PATIENT WAS FASTINGPERFORMED BY: LabCoRutgers - University Behavioral HealthCareUmyfge8514 [facility] [id number] Vitamin D, 25-Hydroxy 48.8 ng/mL (Normal) Range: 30.0-100.0 Comments: Vitamin D deficiency has been defined by the [place] of[place]icine and an Endocrine Society practice guideline as alevel of serum 25-OH vitamin D less than 20 ng/mL (1,2).The Endocrine Society went on to further define vitamin Dinsufficiency as a level between 21 and 29 ng/mL (2).1. IOM ([place] of Medicine). 2010. Dietary reference intakes for calcium and D. [place]: The National Academies Press.2. Mira MF, Rosette LOPEZ, Tommy SWAIN, et al. Evaluation, treatment, and prevention of vitamin D deficiency: an Endocrine Society clinical practice guideline. JCEM. 2010; 96(7):1911-30. :54 LIPID PANEL (37201) Comments: PATIENT WAS FASTINGPERFORMED BY: [employer] LabFangjia.com70 [facility] [id number] LDL/HDL Ratio 1.0 {ratio_units} (Normal) Range: 0.0-3.2 [...] MANUAL DIFF Comments: PATIENT WAS FASTINGPERFORMED BY: LabCoDocuTAPRhjbwv9297 [facility] [id number] Information: ADD [id number] AND DRAW FEE 99 1196 (33687) Immature Grans (Abs) 0.0 {x10E3/uL} (Normal) Range: [...] 3.77-5.28 WBC 4.3 {x10E3/uL} (Normal) Range: 4.0-10.5 00-Xhh-33209:54 METABOLIC PANEL, COMPREHENSIVE Comments: PATIENT WAS FASTINGPERFORMED BY: LabCoRutgers - University Behavioral HealthCareRoivgl3727 [facility] [id number] (17286) ALT (SGPT) 48 [iU]/L (Abnormal) Range: 0-40 [...] (Abnormal) Range: 65-99 :18 HgA1C , Office (48762) HgA1C , Office 6.1 % (Normal) Range: 4.6 - 7.1 :18 Blood Glucose , Office (65036) Blood Glucose , Office 103 (Normal) 76-Rwv-13197:00 ABDOMEN WITH AND W/O CONTRAST Radiology Report [...] radiologist regarding this report, please call our 56X5jkikrme line @ Dictated on 03/18/11 1715 by Jennie Pugh MDieTranscribed on 03/22/11 1401 by ITS IMPORTSign by Jeanette Hill MD on 03/22/11 1402 Sign by: Jeanette Pugh MD 71-Kng-756367:29 SERUM CRE & GFR CREAT,SERUM 1.1 mg/dL (Abnormal) Range: 0.6-1.0 64-Dvr-64294:00 BRAIN W/WO CONTRAST Radiology Report See Note [...] seen in the right frontal white matter booking police officer ior to themasswithout interval change. The cortical [...] on 03/02/111729 Sign by: Donna Martin MD 04-Uiz-48275:00 UPPER EXT. JOINT ONLY(ROUTINE) Radiology Report See [...] on 01/29/111715 Sign by: Aakash Barbosa MD 42-Rvx-10664:44 ABDOMEN/PELVIS WITH CONTRAST Radiology Report See Note [...] 02/01/11 1021 Sign by: ALEJANDRO DRUMMOND DO 79-Ztc-273245:57 SINUS/FACIAL BONE Radiology Report See Note (Normal) [...] 01/19/11 1448 Sign by: Misael Hebert MD 12-Oac-31844:00 BRAIN W/WO CONTRAST Radiology Report See Note [...] addition, there is a small region of qnjquumgeR0vkjhfuqmxa along the anterior margin of the mass, [...] on 01/19/111650 Sign by: GAYE PEREZ MD 40-Tpg-23946:00 BRAIN/HEAD W/WO CONTRAST Radiology Report See Note [...] 01/19/11 1447 Sign by: Misael Hebert MD 79-Ipa-053058:08 BILAT SCRN DIGITAL & CAD Radiology Report [...] CREATININE RATIO Comments: PATIENT NOT FASTINGPERFORMED BY: [employer] [facility] Vujajy2485 [facility] [id number] (12473) AND (27707) Microalb/Creat Ratio 1028.4 {mg/g_creat} (Abnormal) Range: 0.0-30.0 Microalbumin, Urine 1341.0 ug/mL (Abnormal) Range: 0.0-17.0 Creatinine, Urine 130.4 mg/dL (Normal) Range: 15.0-278.0 :20 CBC WITH MANUAL DIFF (10988) Comments: PATIENT NOT FASTINGPERFORMED BY: LatinComicsCoCrownpoint Healthcare FacilityHrnbie5184 [facility] NetworkZongCritical access hospital [id number] Immature Grans (Abs) 0.0 {x10E3/uL} (Normal) Range: [...] {x10E3/uL} (Normal) Range: 4.0-10.5 :20 LIPID PANEL (65109) Comments: PATIENT NOT FASTINGPERFORMED BY: EVE [facility]6370 [facility] [id number] LDL/HDL Ratio 0.9 {ratio_units} (Normal) Range: 0.0-3.2 [...] COMPREHENSIVE Comments: PATIENT NOT FASTINGPERFORMED BY: EVE LabCoRutgers - University Behavioral HealthCareVabvpc8135 [facility] [id number] (25404) ALT (SGPT) 28 [iU]/L (Normal) Range: 0-40 [...] (Abnormal) Range: 65-99 :39 HgA1C , Office (21656) HgA1C , Office 6.5 % (Normal) Range: 4.6 - 7.1 :39 Blood Glucose , Office (61601) Blood Glucose , Office 128 (Normal) 2-Ivv-159508:19 CBC With Differential/Platelet Comments: PATIENT WAS FASTINGPERFORMED BY: LabCoRutgers - University Behavioral HealthCareUfmpfc5089 [facility] [id number] Immature Grans (Abs) 0.0 {x10E3/uL} (Normal) Range: [...] 3.80-5.10 WBC 5.6 {x10E3/uL} (Normal) Range: 4.0-10.5 3-Ngk-873527:19 Comp. Metabolic Panel (14) Comments: PATIENT WAS FASTINGPERFORMED BY: LabCoRutgers - University Behavioral HealthCareOdnhdf2183 [facility] [id number]; appt 10/10/11 ALT (SGPT) 18 [iU]/L (Normal) [...] Glucose, Serum 113 mg/dL (Abnormal) Range: 65-99 5-Rwd-509011:19 Lipid Panel With LDL/HDL Comments: PATIENT WAS FASTINGPERFORMED BY: [facility] Yajqnz2674 [facility] [id number] Ratio LDL/HDL Ratio 1.0 {ratio_units} Range: 0.0-3.2 [...] 0.800 {uIU/mL} Comments: PATIENT WAS FASTINGPERFORMED BY: [employer] [facility] [id number] 2:19 (Normal) Range: 0.450-4.500 Vitamin D, 25-Hydroxy 44.0 ng/mL (Normal) Comments: PATIENT WAS FASTINGPERFORMED BY: [employer] [facility] [id number] 2:19 Range: 32.0-100.0 Comments: Effective February 22, 2011 Vitamin D, 25-Hydroxy reference intervals will be changing to 30-100. .Recent studies consider the lower li sandra of 32.0 ng/mL to be athreshold for optimal health.Otf HAYES. J Nutr. 2004;135(2):317-22. 90-Ylb-527646:54 HgA1C , Office (99647) HgA1C , Office 6.6 % (Normal) Range: 4.6 - 7.1 :54 Blood Glucose , Office (44961) Blood Glucose , Office 134 (Normal) 7-Zju-610850:40 Creatinine Clearance Comments: PERFORMED BY: [employer] [facility] [id number] Information: 10/07@7AM 10/08@3AM Creatinine Clearance 56 mL/min [...] Protein Total, Qn, 24-Hr Comments: PERFORMED BY: Mogi6370 [place] [id number] Urine Prot,24hr calculated 610.5 {mg/24_hr} (Abnormal) Range: 30.0-150.0 Protein,Total,Urine 40.7 mg/dL (Abnormal) Range: 0.0-15.0 :46 Vitamin D Hydroxy (16445) Comments: PATIENT WAS FASTINGPERFORMED BY: Mogi6370 [place] [id number] Vitamin D, 25-Hydroxy 36.5 ng/mL (Normal) Range: 32.0-100.0 Comments: Recent studies consider the lower limit of 32.0 ng/mL to be athreshold for optimal health.Otf HAYES. J Nutr. 2004;135(2):317-22. :46 METABOLIC PANEL, COMPREHENSIVE Comments: PATIENT WAS FASTINGPERFORMED BY: Mogi6370 [facility] [id number] (88654) ALT (SGPT) 34 [iU]/L (Normal) Range: 0-40 [...] mg/dL (Abnormal) Range: 65-99 :46 LIPID PANEL (58832) Comments: PATIENT WAS FASTINGPERFORMED BY: Mogi6370 [facility] [id number] LDL Cholesterol Calc 85 mg/dL (Normal) Range: [...] MANUAL DIFF Comments: PATIENT WAS FASTINGPERFORMED BY: [place] BreweryRutgers - University Behavioral HealthCareUmqhys0676 [facility] [id number] Information: [id number]; appt 10/12/10 (11569) Immature Grans (Abs) 0.0 {x10E3/uL} (Normal) Range: [...] 3.80-5.10 WBC 5.5 {x10E3/uL} (Normal) Range: 4.0-10.5 0-Cau-706694:07 HgA1C , Office (93829) HgA1C , Office 6.6 % (Normal) Range: 4.6 - 7.1 :07 Blood Glucose , Office (36439) Blood Glucose , Office 114 (Normal) 02-Yty-724822:00 Creatinine Clearance Comments: PERFORMED BY: EVE [facility] Wpiqau3920 [facility] [id number] Information: 12/31@8AM 01/01@4AM Creatinine Clearance 48 mL/min [...] Creatinine, Serum 1.20 mg/dL (Abnormal) Range: 0.57-1.00 57-Vmp-517100:00 Protein Total, Qn, 24-Hr Comments: PERFORMED BY: [facility]6370 [facility] [id number] Urine Prot,24hr calculated 1070.6 {mg/24_hr} (Abnormal) Range: 30.0-150.0 Protein,Total,Urine 79.3 mg/dL (Abnormal) Range: 0.0-15.0 39-Qfa-575845:48 BILAT SCRN DIGITAL & CAD Radiology Report See Note (Normal) Comments: Exam Number: [id number] MAMMOGRAPHY - BILATERAL SCREENING INDICATION:Routine annual screening [...] of attaching a ResultCode to this exam.ADDENDUM: [id number] HPBI/MDS Reported By: MISAEL HEBERT 44-Zuu-997504:48 DEXA BONE DENSITY STUDY (HP) Radiology Report See Note (Normal) Comments: Exam Number: [id number] CLINICAL:This is a 69-year-old female patient with postmenopausal screening. EXAMINATION:DUAL ENERGY X-RAY ABSORPTIOMETRY / DEXA. TECHNIQUE:Bone Density Measurements (BMD) of lumb ar spine and bilateral hipswere obtained using a HandUp PBC scanner.. COMPARISON:None. FINDINGS: Lumbar Spine (L1-L4): g/cm2 [...] Osteoporosis Foundation http://www.nof.org Reported By: MISAEL HEBERT 32-Pzp-982267:29 HgA1C , Office (76014) HgA1C , Office 6.5 % (Normal) Range: 4.6 - 7.1 72-Lun-501712:29 Blood Glucose , Office (54671) Blood Glucose , Office 109 (Normal) 15-Akb-70659:05 CBC With Differential/Platelet Comments: PATIENT WAS FASTINGPERFORMED BY: [facility]Co Lcpywj2938 [facility] [id number] Immature Grans (Abs) 0.0 {x10E3/uL} (Normal) Range: [...] Panel (14) Comments: PATIENT WAS FASTINGPERFORMED BY: [facility] [id number] ALT (SGPT) 20 [iU]/L (Normal) Range: 0-40 [...] With LDL/HDL Comments: PATIENT WAS FASTINGPERFORMED BY: [employer] [facility] [id number] Ratio HDL Cholesterol 54 mg/dL (Normal) Comments: [...] ng/mL (Normal) Comments: PATIENT WAS FASTINGPERFORMED BY: Mogi6370 [facility] [id number] :05 Range: 32.0-100.0 Comments: Recent studies consider the lower limit of 32.0 ng/mL to be athreshold for optimal health.Otf HAYES. J Nutr. 2004;135(2):317-22. 20-Ugj-90339:41 SPLEEN (HP) Radiology Report See Note (Normal) Comments: Exam Number: [id number] ULTRASOUND OF THE SPLEEN A goal directed [...] Protein, 0.5 mg/L (Normal) Comments: PERFORMED BY: [employer]6370 [facility] [id number] 10:54 Quant Range: 0.0-4.9 17-Jun-2009 Hemoglobin A1c 6.3 % (Abnormal) Comments: PERFORMED BY: [employer]6370 [facility] [id number] 10:54 Range: 4.8-5.6 Comments: Increased risk for diabetes: 5.7 - 6.4Diabetes: >6.4Glycemic control for adults with diabetes: <7.0.Please note reference interval change 17-Jun-2009 Sedimentation 4 mm/h (Normal) Comments: PERFORMED BY: [employer] [facility] [id number] 10:54 Rate-Westergren Range: 0-30 17-Jun-2009 Vitamin B12 1372 pg/mL Comments: PERFORMED BY: [employer]70 [facility] NetworkZongCritical access hospital [id number] 10:54 (Abnormal) Range: 211-911 Comments: Effective July 14, 2009, Vitamin B12 will bechanging to the GFRANQ ECLIA methodology. Thereference interval will be changing to:211 - 946 pg/mL 17-Jun-2009 Vitamin D, 25-Hydroxy 37.7 ng/mL Comments: PERFORMED BY: [employer]70 [facility] [id number] 10:54 (Normal) Range: 32.0-100.0 Comments: Recent studies consider the lower limit of 32.0 ng/mL to be athreshold for optimal health.Otf HAYES. J Nutr. 2004;135(2):317-22. 96-Ghe-167497:34 Vitamin D Hydroxy Comments: PATIENT NOT FASTINGPERFORMED BY: Mogi6370 [facility] [id number] Information: K37107,2ND ORDER NO DRAW F EE (85598) Vitamin D, 25-Hydroxy 48.5 ng/mL (Normal) Range: 30.0-100.0 Comments: Vitamin D deficiency has been defined by the [place] of[place]icine and an Endocrine Society practice guideline as alevel of serum 25-OH vitamin D less than 20 ng/mL (1,2).The Endocrine Society went on to further define vitamin Dinsufficiency as a level between 21 and 29 ng/mL (2).1. IOM ([place] of Medicine). 2010. Dietary reference intakes for calcium and D. [place]: The National Academies Press.2. Mira MF, Rosette [place], Tommy SWAIN, et al. Evaluation, treatment, and prevention of vitamin D deficiency: an Endocrine Society clinical practice guideline. JCEM. 2010; 96(7):1911-30. :50 HgA1C , Office (13997) HgA1C , Office 6.7 % (Normal) Range: 4.6 - 7.1 :50 Blood Glucose , Office (85259) Blood Glucose , Office 117 (Normal) :12 CBC With Differential/Platelet Comments: PERFORMED BY: [facility]6370 [facility] [id number] Information: 06/10@6AM3/10@330 Hematology Comments: Note: (Normal) Comments: [...] 3.80-5.10 WBC 3.6 {x10E3/uL} (Abnormal) Range: 4.0-10.5 99-Klg-147513:12 Comp. Metabolic Panel (14) Comments: PERFORMED BY: EVE Shaker Wsrcxq4939 [facility] [id number] Alkaline Phosphatase, S 68 [iU]/L (Normal) Range: [...] Glucose, Serum 124 mg/dL (Abnormal) Range: 65-99 09-Qtw-252166:12 Creatinine Clearance Comments: PERFORMED BY: EVE [employer]6370 [facility] [id number] Creatinine Clearance 49 mL/min (Abnormal) Range: 88-128 Comments: The above range is based on 1.73 square meter average body surfacearea. Creatinine, Ur 24hr 800.0 {mg/24_hr} (Normal) Range: 800.0-1800.0 Creatinine, Urine 40.0 mg/dL (Normal) Range: 15.0-278.0 53-Gyv-896262:12 Lipid Panel With LDL/HDL Comments: PERFORMED BY: [employer]70 [facility] [id number] Ratio HDL Cholesterol 61 mg/dL (Normal) Comments: According to ATP-III Guidelines, HDL-C >59 mg/dL is considered anegative risk factor for CHD. LDL Cholesterol Calc 74 mg/dL (Normal) Range: 0-99 LDL/HDL Ratio 1.2 {ratio_units} (Normal) Range: 0.0-3.2 VLDL Cholesterol Cesar 17 mg/dL (Normal) Range: 5-40 Cholesterol, Total 152 mg/dL (Normal) Range: 100-199 Triglycerides 87 mg/dL (Normal) Range: 0-149 11-Ont-056689:12 Protein Total, Qn, 24-Hr Comments: PERFORMED BY: [employer]70 [facility] [id number] Urine Prot,24hr calculated 1172.0 {mg/24_hr} Range: 30.0-150.0 (Abnormal) Protein,Total,Urine 58.6 mg/dL (Abnormal) Range: 0.0-15.0 TSH 1.280 {uIU/mL} Comments: PERFORMED BY: STinserRutgers - University Behavioral HealthCareIzmzqc6084 [facility] [id number] 1:12 (Normal) Range: 0.450-4.500 :58 HgA1C , Office (07093) HgA1C , Office 6.0 % (Normal) Range: 4.6 - 7.1 :58 Blood Glucose , Office (79947) Blood Glucose , Office 113 (Normal) 3-Dbo-531325:03 CBC With Differential/Platelet Comments: PATIENT WAS FASTINGPERFORMED BY: EVE STinserRutgers - University Behavioral HealthCareWhvafg5314 [facility] [id number] Baso (Absolute) 0.0 {x10E3/uL} (Normal) Range: 0.0-0.2 [...] 11.7-15.0 WBC 3.2 {x10E3/uL} (Abnormal) Range: 4.0-10.5 0-Snz-833294:03 Comp. Metabolic Panel (14) Comments: PATIENT WAS FASTINGPERFORMED BY: [facility]6370 [facility] [id number] A/G Ratio 2.0 (Normal) Range: 1.1-2.5 Albumin, [...] Glucose, Serum 116 mg/dL (Abnormal) Range: 65-99 9-Lia-171840:03 Lipid Panel With LDL/HDL Comments: PATIENT WAS FASTINGPERFORMED BY: LabCoRutgers - University Behavioral HealthCareRdgozk3494 [facility] [id number] Ratio Cholesterol, Total 167 mg/dL (Normal) Range: [...] ng/mL (Normal) Comments: PATIENT WAS FASTINGPERFORMED BY: WellntelCo Qsefze8787 [facility] [id number] :03 Range: 32.0-100.0 Comments: Recent studies consider the lower limit of 32.0 ng/mL to be athreshold for optimal health.Otf HAYES. J Nutr. 2004;135(2):317-22. 25-Zzh-318409:32 Urinalysis, Office (62311) UA - BILIRUBIN Negative (Normal) UA - BLOOD Hemolyzed Trace (Normal) UA - GLUCOSE Negative (Normal) UA - KETONES Negative mg/dL (Normal) UA - LEUKOCYTE ESTERASE Negative (Normal) UA - NITRITE Negative (Normal) UA - PH 6.5 (Normal) UA - PROTEIN 300 mg/dL (Normal) UA - SPECIFIC GRAVITY 1.020 (Normal) URINE UROBILINGN JATINDER TIMED 2 mg/dL (Normal) 6-Xlf-302881:19 URINE SETH CULTURE-JATINDER COL Comments: PATIENT NOT FASTINGClinical Information: SRC:UR ADD [id number] PERFORMED BY: [facility] Qeflln2708 [facility] [id number] COUNT (57396) Result 1 ECV (Normal) Comments: Escherichia coli, [...] report (Normal) Culture,Comprehensiv e 09-Jan-20098:17 Urinalysis, Office (08985) UA - BILIRUBIN Negative (Normal) UA - BLOOD Hemolyzed Large (Normal) UA - GLUCOSE Negative (Normal) UA - KETONES Negative mg/dL (Normal) UA - LEUKOCYTE ESTERASE Moderate (Normal) UA - NITRITE Negative (Normal) UA - PH 7.0 (Normal) UA - PROTEIN 300 mg/dL (Normal) UA - SPECIFIC GRAVITY 1.020 (Normal) URINE UROBILINGN JATINDER TIMED 2 mg/dL (Normal) 7-Nhg-053382:05 Comp. Metabolic Panel (14) Comments: PATIENT WAS FASTINGPERFORMED BY: [facility]Hur[facility]6370 [facility] [id number] A/G Ratio 1.7 (Normal) Range: 1.1-2.5 Albumin, [...] Panel (7) Comments: PATIENT WAS FASTINGPERFORMED BY: [facility]6370 [facility] [id number] Bilirubin, Direct 0.12 mg/dL (Normal) Range: 0.00-0.40 :05 Lipid Panel With LDL/HDL Comments: PATIENT WAS FASTINGPERFORMED BY: [place] 4326670 [facility] [id number] Ratio Cholesterol, Total 170 mg/dL (Normal) Range: [...] mg/dL (Normal) Comments: PATIENT WAS FASTINGPERFORMED BY: [facility]6370 [facility] [id number] :05 Range: 2.5-4.5 PTH, Intact 19 pg/mL (Normal) Comments: PATIENT WAS FASTINGPERFORMED BY: [facility]6370 [facility] [id number] :05 Range: 15-65 Vitamin D, 25-Hydroxy 38.9 ng/mL (Normal) Comments: PATIENT WAS FASTINGPERFORMED BY: [facility]6370 [facility] [id number] :05 Range: 32.0-100.0 Comments: Recent studies consider the lower limit of 32.0 ng/mL to be athreshold for optimal health.Otf HAYES. J Nutr. 2004;135(2):317-22. 9-Ztp-224570:40 HgA1C , Office (11012) HgA1C , Office 6.0 % (Normal) Range: 4.6 - 7.1 :40 Blood Glucose , Office (40941) Blood Glucose , Office 109 (Normal) :42 CBC With Differential/Platelet Comments: PATIENT WAS FASTINGPERFORMED BY: LabCoRutgers - University Behavioral HealthCareVfrfdn5247 [facility] [id number] Baso (Absolute) 0.0 {x10E3/uL} (Normal) Range: 0.0-0.2 [...] Panel (14) Comments: PATIENT WAS FASTINGPERFORMED BY: LabCoRutgers - University Behavioral HealthCareKgyort0655 [facility] [id number] A/G Ratio 1.6 (Normal) Range: 1.1-2.5 Albumin, [...] Sodium, Serum 140 mmol/L (Normal) Range: 135-145 1-Peo-779379:09 FECAL OCCULT HGB ASSAY, QUAL, 1-3 SIMULTANEOUS DETERMINATIONS (88155) FECAL OCCULT HGB ASSAY, QUAL, 1-3 SIMULTANEOU neg (Normal) :42 Microscopic Examination Comments: PATIENT WAS FASTINGPERFORMED BY: [facility] [place] [facility] [id number] Bacteria None seen (Normal) Cast Type Hyaline casts (Normal) Casts Present {/lpf} (Abnormal) Epithelial Cells (non renal) 0-10 {/hpf} (Normal) Range: 0 - 10 Mucus Threads Present (Normal) RBC 0-3 {/hpf} (Normal) Range: 0 - 3 WBC 0-5 {/hpf} (Normal) Range: 0 - 5 :42 URINALYSIS W/O MICRO (28708) Comments: PATIENT WAS FASTINGPERFORMED BY: [facility] [id number] Appearance Clear (Normal) Bilirubin Negative (Normal) Glucose Negative (Normal) Ketones Negative (Normal) Microscopic Examination See below: (Normal) Nitrite, Urine Negative (Normal) Occult Blood Negative (Normal) pH 5.0 (Normal) Range: 5.0-7.5 Protein 1+ (Abnormal) Specific Arnold 1.013 (Normal) Range: 1.005-1.030 Urine-Color Yellow (Normal) Urobilinogen,Semi-Qn 0.2 mg/dL (Normal) Range: 0.0-1.9 WBC Esterase 1+ (Abnormal) :42 MICROALBUMIN: CREATININE RATIO Comments: PATIENT WAS FASTINGPERFORMED BY: [facility] [id number] ([id number]) AND (00193) Creatinine, Urine 76.1 mg/dL (Normal) Range: 15.0-278.0 Microalb/Creat Ratio 292.1 {ug/mg_creat} (Abnormal) Range: 0.0-30.0 Microalbumin, Urine 222.3 ug/mL (Abnormal) Range: 0.0-17.0 :42 CBC WITH MANUAL DIFF (33289) Comments: PATIENT WAS FASTINGClinical Information: ADD DRAW FEE [id number] ADD J 29422 PERFORMED BY: [facility] [id number] Baso (Absolute) 0.0 {x10E3/uL} (Normal) Range: 0.0-0.2 [...] PANEL, COMPREHENSIVE Comments: PATIENT WAS FASTINGPERFORMED BY: [facility]CoR[facility] HealthCareHhkfcw7681 [facility] [id number] ([id number]) A/G Ratio 1.8 (Normal) Range: 1.1-2.5 Albumin, [...] Sodium, Serum 141 mmol/L (Normal) Range: 135-145 3-Ljb-231953:23 HgA1C , Office (50279) HgA1C , Office 6.0 % (Normal) Range: 4.6 - 7.1 3-Goo-234116:23 Blood Glucose , Office (48248) Blood Glucose , Office 103 (Normal) 26-Gje-425098:38 CBC WITH MANUAL DIFF (11686) Comments: PATIENT WAS FASTINGClinical Information: ADD DRAW FEE [id number] ADD J 15524 PERFORMED BY: [facility]CoJesse [facility] [id number] [facility] [id number] Baso (Absolute) 0.0 {x10E3/uL} (Normal) Range: 0.0-0.2 [...] 11.7-15.0 WBC 4.0 {x10E3/uL} (Normal) Range: 4.0-10.5 70-Abq-598062:38 METABOLIC PANEL, COMPREHENSIVE Comments: PATIENT WAS FASTINGPERFORMED BY: [facility]CoR[facility] HealthCareEescvb8498 [facility] [id number] (39804) A/G Ratio 1.8 (Normal) Range: 1.1-2.5 Albumin, [...] Sodium, Serum 142 mmol/L (Normal) Range: 135-145 94-Jmo-582697:38 HEPATIC FUNCTION PANEL Comments: PATIENT WAS FASTINGPERFORMED BY: [employer] [facility]6370 [facility] [id number] (97724) Bilirubin, Direct 0.08 mg/dL (Normal) Range: 0.00-0.40 47-Bzi-332373:38 LIPID PANEL (90223) Comments: PATIENT WAS FASTINGPERFORMED BY: [employer] [facility]6370 [facility] [id number] Cholesterol, Total 200 mg/dL (Abnormal) Range: 100-199 [...] Cholesterol Cesar 18 mg/dL (Normal) Range: 5-40 4-Jxn-449045:36 HgA1C , Office (88816) HgA1C , Office 6.1 % (Normal) Range: 4.6 - 7.1 4-Ttw-239953:36 Blood Glucose , Office (36186) Blood Glucose , Office 98 (Normal) 01-Fcm-063545:33 CBC With Differential/Platelet Comments: PATIENT WAS FASTINGClinical Information: SRC:UR PERFORMED BY: EVE LabCoR[facility] HealthCareDbkdpd7761 [facility] [id number] Baso (Absolute) 0.0 {x10E3/uL} (Normal) Range: 0.0-0.2 [...] 11.7-15.0 WBC 4.8 {x10E3/uL} (Normal) Range: 4.0-10.5 15-Ugr-633826:33 Comp. Metabolic Panel (14) Comments: PATIENT WAS FASTINGPERFORMED BY: EVE LabCoR[facility]al HealthCareJklkxh4607 [facility] [id number] A/G Ratio 1.6 (Normal) Range: 1.1-2.5 Albumin, [...] Serum 92 mg/dL (Normal) Range: 65-99 If -Maltese 57 mL/min/1.73 Comments: Note: Persistent reduction for [...] Sodium, Serum 142 mmol/L (Normal) Range: 135-145 37-Vdy-898349:33 Lipid Panel With LDL/HDL Comments: PATIENT WAS FASTINGPERFORMED BY: [facility]CoR[facility] HealthCareSeghbp9358 [facility] [id number] Ratio Cholesterol, Total 174 mg/dL (Normal) Range: 100-199 HDL Cholesterol 67 mg/dL (Normal) Comments: According to ATP-III Guidelines, HDL-C >59 mg/dL is considered anegative risk factor for CHD. LDL Cholesterol Calc 85 mg/dL (Normal) Range: 0-99 LDL/HDL Ratio 1.3 {ratio_units} (Normal) Range: 0.0-3.2 Triglycerides 110 mg/dL (Normal) Range: 0-149 VLDL Cholesterol Cesar 22 mg/dL (Normal) Range: 5-40 97-Dem-894783:33 Urine Culture,Comprehensive Comments: PATIENT WAS FASTINGPERFORMED BY: [facility]CoR[facility] HealthCareIlznzc0659 [facility] [id number] Antimicrobial MIHEAD (Normal) Comments: S = Susceptible; [...] Enterococcus. (Normal) Urine Final report (Normal) Culture,Comprehensive 9-Not-340940:10 HgA1C , Office (87052) HgA1C , Office 5.9 % (Normal) Range: [...] mL (Normal) URINE PROTEIN 20.0 mg/dL (Abnormal) 32-Rsr-444447:17 Urine Culture,Comprehensive Comments: Clinical Information: SRC:UR PERFORMED BY: STinser Targeter App [facility] [id number] Result 1 CNSNSS (Normal) Comments: Coagulase negative Staphylococcus species, not Staphylococcussaprophyticus.600 Colonies/mLSusceptibility or resistance of staphylococci to oxacillin predictssusceptibility or resistance to (a) other be dz-xkjgpamfi-lzrfimmnrazguzwbc such as cloxacillin and dicloxacillin, (b) combinationsof a penicillin and a beta-lactamase inhibitor, and(c) anti- staphylococcal cephalosporins. Routine testing of otherp enicillins, beta-lactam/beta-lactamase inhibitor combinations,cephems, and carbapenems is not advised by the CLSI Standards(C889-N67, 2005). S = Susceptible; I = Intermediate; R = Resistant * P = Positive; N = Negative MICS are expressed in micrograms per mL Antibiotic RSLT#1 RSLT#2 RSLT#3 RSLT#4Ciprofloxacin RGentami kristian SLevofloxacin RNitrofurantoin SOxacillin SPenicillin RRifampin STrimethoprim/Sulfa SVancomycin S Urine Final report Culture,Comprehensi (Normal) ve 4-Euw-986745:53 Metabolic Panel, Basic (35635) Comments: PATIENT NOT FASTINGClinical Information: ADD DRAW FEE [id number] ADD J 72352 PERFORMED BY: STinser Targeter App [facility] [id number] BUN 39 mg/dL (Abnormal) Range: 5-26 BUN/Creatinine Ratio 33 (Abnormal) Range: 8-27 Calcium, Serum 9.8 mg/dL (Normal) Range: 8.5-10.6 Carbon Dioxide, Total 22 mmol/L (Normal) Range: 20-32 Chloride, Serum 103 mmol/L (Normal) Range: 97-108 Creatinine, Serum 1.20 mg/dL (Abnormal) Range: 0.57-1.00 Glom Filt Rate, Est 45 mL/min/1.73 Range: 60-128 (Abnormal) Glucose, Serum 101 mg/dL (Abnormal) Range: 65-99 If -Maltese 55 mL/min/1.73 Range: 60-128 (Abnormal) Comments: Note: Persistent reduction for 3 months or more in an eGFR<60 mL/min/1.73 m2 defines CKD. Patients with eGFR values>/=60 mL/min/1.73 m2 may also have CKD if evidence of persistentproteinuria is present. Additional information may be found atwww.kdoqi.org. Potassium, Serum 5.1 mmol/L (Normal) Range: 3.5-5.2 Sodium, Serum 139 mmol/L (Normal) Range: 135-145 :09 HgA1C , Office (89172) HgA1C , Office 6.1 % (Normal) Range: 4.6 - 7.1 :09 Blood Glucose , Office (79025) Blood Glucose , Office 163 (Normal) :37 SPINE,LUMBAR (ROUTINE) Radiology Report See Note (Normal) Comments: Exam Number: [id number] MRI LUMBAR SPINE CLINICAL STATEMENTLow back pain [...] onboth sides. Reported By: MODESTA COPE M.D. 72-Ayj-184224:00 [facility] CAD Radiology Report See Note (Normal) Comments: Exam Number: [id number] MAMMOGRAM, BILATERAL SCREENING DIGITAL AND CAD HISTORYRoutine screening. Full field digital images were obtained in mediolateral oblique andcraniocaudal projections. CAD images w ere reviewed. The current study is [facility]. A small metal marker is placed [...] mammograms werealso examined with computer-aided detection software ([employer], [employer] Reported By: DONNA OJEDA M.D. 96-Svz-518051:59 DEXA BONE DENSITY STUDY (HP) Radiology Report See Note (Normal) Comments: Exam Number: [id number] BONE DENSITOMETRY HISTORYPost menopausal. TECHNIQUE Bone densitometry [...] Report See Note (Normal) Comments: Exam Number: [id number] FIVE VIEW LUMBAR SPINE AP, lateral, both [...] Randm Ur Comments: PATIENT NOT FASTINGPERFORMED BY: [id number] [facility] [id number] Creatinine, Urine 46.8 mg/dL (Normal) Microalb/Creat Ratio 712.8 {ug/mg_creat} (Abnormal) Range: 0.0-30.0 Microalbum.,U,Random 333.6 ug/mL (Abnormal) Range: 0.0-17.0 :13 Creatinine Clearance Comments: PATIENT NOT FASTINGClinical Information: HT-5'4'' WT-184 PERFORMED BY: CoursePeerCritical access hospital [id number] Creatinine Clearance 40 mL/min (Abnormal) Range: 88-128 Comments: The above range is based on 1.73 square meter average body surfacearea. Creatinine, Serum 1.30 mg/dL (Normal) Range: 0.50-1.50 Creatinine, Ur 24hr 754.8 {mg/24_hr} Range: 800.0-1800.0 (Abnormal) Creatinine, Urine 44.4 mg/dL (Normal) Glom Filt Rate, Est 41 mL/min (Abnormal) Range: 60-128 If -Maltese 50 mL/min (Abnormal) Range: 60-128 Comments: Note: Persistent reduction for 3 months or more in an eGFR<60 mL/min/1.73 m2 defines CKD. Patients with eGFR values>/=60 mL/min/1.73 m2 may also have CKD if evidence of persistentproteinuria is present. .Additional information may be found at www.kdoqi.org. 05-Sep-20079:13 Protein Total, Qn, 24-Hr Comments: PATIENT NOT FASTINGPERFORMED BY: [facility]CoR[facility] HealthCareTewdkb3200 [facility] [id number] Urine Protein,Total,Urine 49.0 mg/dL (Abnormal) Range: 0.0-15.0 Prt, 24hr calculated 833.0 {mg/24_hr} (Abnormal) Range: 30.0-150.0 00-Twq-577954:00 CBCD,SMEAR DIFF CELLS COUNTED 100 (Normal) EOS [...] skin Planned Observations CBC with auto diff (29747)Indication: Diabetes mellitus type II, controlled On: 51-Ggq-339464:22 Request HGB A1C (67758)Indication: Diabetes mellitus type II, controlled On: :21 Request METABOLIC PANEL, COMPREHENSIVE (40461)Indication: Chronic kidney disease, stage 3 On: 06-Ixo-579488:21 Request LIPID PANEL (88606)Indication: Other and unspecified hyperlipidemia On: 48-Dkn-570627:21 Request Vitamin D Hydroxy (80997)Indication: Vitamin D deficiency On: 57-Fpe-573532:21 Request PARATHORMONE (92232)Indication: Chronic kidney disease, stage 3 On: 06-Mar-20188:59 Request Comments: fax to [phone] MICROALBUMIN: CREATININE RATIO (19104) AND (02380)Indication: Chronic kidney disease, stage 3 On: 06-Mar-20188:55 Request Comments: fax to [phone] RENAL FUNCTION PANEL (40038)Indication: Chronic kidney disease, stage 3 On: :54 Request Comments: fax to [phone] MAGNESIUM (31766)Indication: Chronic kidney disease, stage 3 On: 06-Mar-20188:54 Request Comments: fax to [phone] Parathyroid Hormone-related Peptide (PTH-rP) (36286)Indication: Chronic kidney disease, stage 3 On: 06-Mar-20188:54 Request Comments: fax to [phone] CBC W/AUTO DIFF WBC (91130)Indication: Chronic kidney disease, stage 3 On: 67-Rpk-234066:25 Request Parathyroid Hormone-related Peptide (PTH-rP) (54493)Indication: Vitamin D deficiency On: 8-Ozu-023554:43 Request Comments: send results to Dr. Santana fax: [phone] VITAMIN D, 1, 25-DIHYDROXY (40374)Indication: Vitamin D deficiency On: 8-Qin-949287:42 Request Comments: send results to Dr. Santana fax: [phone] Clostridium difficile Toxin A+B, EIA (39832)Indication: Chronic diarrhea On: 2-Oyl-770214:36 Request Vitamin D Hydroxy (97548)Indication: Osteopenia On: 3-Glh-233748:20 Request CBC W/AUTO DIFF WBC (88289)Indication: Hypertension, benign On: 6-Mri-798727:16 Request CALCIFEDIOL (13009)Indication: Chronic kidney disease, stage 3 On: :04 Request Renal function Panel (17436)Indication: Chronic kidney disease, stage 3 On: :04 Request Magnesium (04996)Indication: Chronic kidney disease, stage 3 On: :04 Request MICROALBUMIN: CREATININE RATIO (40426) AND (07404)Indication: Chronic kidney disease, stage 3 On: :04 Request Parathyroid Hormone-related Peptide (PTH-rP) (94149)Indication: Chronic kidney disease, stage 3 On: :04 Request T4, FREE (THYROXINE) (30075)Indication: Cold feeling On: :31 Request TSH (90555)Indication: Cold feeling On: :31 Request PARATHORMONE (53483)Indication: Chronic kidney disease, stage 3 On: 98-Vzt-93875:18 Request Comments: copy to Dr. Santana [phone] CALCIFIDIOL (65405) VIT D 25Indication: Chronic kidney disease, stage 3 On: 26-Nqi-13394:16 Request Comments: copy to Dr. Santana [phone] MAGNESIUM (86874)Indication: Chronic kidney disease, stage 3 On: 00-Tgm-41172:15 Request Comments: copy to Dr. Santana [phone] PROTEIN/CREAT RATIO, URINE (65521)Indication: Chronic kidney disease, stage 3 On: 13-Apt-06611:15 Request Comments: copy to Dr. Santana [phone] LIPID PANEL (14039)Indication: Mixed hyperlipidemia On: 48-Qky-568943:21 Request CBC with auto diff (11833)Indication: Diabetes mellitus type II, controlled On: 96-Vuh-002279:20 Request METABOLIC PANEL, COMPREHENSIVE (77768)Indication: Diabetes mellitus type II, controlled On: 96-Brf-165740:20 Request HGB A1C (02525)Indication: Diabetes mellitus type II, controlled On: 72-Jnx-030150:10 Request Vitamin D Hydroxy (21305)Indication: Osteopenia On: 97-Wza-429263:08 Request TSH (THYROID STIMULATING HORMONE) (99852)Indication: Depression On: 89-Kze-884482:06 Request LIPID PANEL (49309)Indication: Other and unspecified hyperlipidemia On: 34-Uvt-763115:06 Request CBC with auto diff (37787)Indication: Diabetes mellitus type II, controlled On: 68-Xkp-359733:06 Request METABOLIC PANEL, COMPREHENSIVE (69686)Indication: Diabetes mellitus type II, controlled On: 45-Syn-221196:06 Request CREATININE CLEARANCE (34345)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 On: 2-Vtt-063094:38 Request Total Protein,24 Hour Urine (09521)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 On: 5-Qzk-986658:38 Request CBC W/AUTO DIFF WBC (08845)Indication: Diabetes mellitus type II, controlled On: 49-Ogj-703405:11 Request HgA1C , Office (55091)Indication: Diabetes mellitus type II, controlled On: 34-Wpd-636143:23 Request CULTURE, SPUTUM (27237)Indication: Cough On: 94-Qfn-598467:47 Request HEPATIC FUNCTION PANEL (64059)Indication: Elevated LFTs On: 82-Vet-49158:24 Request CREATININE CLEARANCE (56317)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 On: 25-Luu-78633:33 Request 24 hour urine for Protein (62948)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 On: :33 Request CBC WITH MANUAL DIFF (40679)Indication: Diabetes mellitus type II, controlled On: :29 Request METABOLIC PANEL, COMPREHENSIVE (80022)Indication: Diabetes mellitus type II, controlled On: 96-Bck-686324:29 Request LIPID PANEL (36552)Indication: Mixed hyperlipidemia On: 81-Izt-605728:29 Request CREATININE CLEARANCE (00128)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 On: 7-Qlg-471576:45 Request 24 hour urine for Protein (15635)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 On: 5-Ymi-147233:45 Request CREATININE CLEARANCE (72128)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 On: 44-Exq-481003:57 Request 24 hour urine for Protein (00429)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 On: 21-Pcl-575657:57 Request METABOLIC PANEL, COMPREHENSIVE (81494)Indication: Hypertension, benign On: :32 Request LIPID PANEL (50204)Indication: Mixed hyperlipidemia On: :32 Request C-REACTIVE PROTEIN (42939)Indication: Fatigue On: :24 Request SED RATE ERYTHROCYTE (95602)Indication: Headache On: :24 Request VITAMIN B-12 (CYANOCOBALAMIN) (30523)Indication: Fatigue On: :24 Request LIPID PANEL (69096)Indication: Mixed hyperlipidemia On: :41 Request CBC WITH MANUAL DIFF (00335)Indication: Hypertension, benign On: :41 Request METABOLIC PANEL, COMPREHENSIVE (66452)Indication: Hypertension, benign On: :41 Request CREATININE CLEARANCE (84926)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 On: :34 Request 24 hour urine for Protein (48192)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 On: 9-Tjj-180824:34 Request LIPID PANEL (18343)Indication: Mixed hyperlipidemia On: 2-Kai-551293:22 Request HEPATIC FUNCTION PANEL (43598)Indication: Mixed hyperlipidemia On: 2-Ztr-693619:22 Request Vitamin D Hydroxy (73078)Indication: Hypercalcemia On: 1-Esl-143723:22 Request PHOSPHORUS (87148)Indication: Hypercalcemia On: 7-Phy-629324:22 Request PARATHORMONE (81805)Indication: Hypercalcemia On: 2-Jsg-545188:22 Request METABOLIC PANEL, COMPREHENSIVE (93850)Indication: Hypercalcemia On: 9-Kus-200066:22 Request CBC WITH MANUAL DIFF (43244)Indication: fsgs On: 6-Mdw-954304:58 Request LIPID PANEL (40662)Indication: Mixed hyperlipidemia On: 5-Yyr-033252:58 Request METABOLIC PANEL, COMPREHENSIVE (39661)Indication: Hypertension, benign On: 7-Mwn-785077:58 Request Blood Glucose , Office (48576)Indication: Diabetes mellitus type II, controlled On: 3-Tgu-384548:10 Request TSH (43017)Indication: Diabetes mellitus type II, controlled On: 48-Bsa-836277:51 Request METABOLIC PANEL, COMPREHENSIVE (62952)Indication: Diabetes mellitus type II, controlled On: :51 Request CBC WITH MANUAL DIFF (62731)Indication: Diabetes mellitus type II, controlled On: :51 Request MICROALBUMIN: CREATININE RATIO (85500) AND (43021)Indication: Diabetes mellitus type II, controlled On: :51 Request HEPATIC FUNCTION PANEL (89608)Indication: Other and unspecified hyperlipidemia On: :51 Request LIPID PANEL (79725)Indication: Other and unspecified hyperlipidemia On: 51 Request HgA1C , Office (97175)Indication: Diabetes mellitus type II, controlled On: :37 Request Blood Glucose , Office (35135)Indication: Diabetes mellitus type II, controlled On: :37 Request Planned Procedures DRAIN/INJECT MAJOR JOINT OR BURSA On: 13-Mar-2018 Intent ()By: SHONDA Andrade Comments: 2 cc Marcaine lot# [id number] exp: 1 cc Kenalog lot# [id number] exp DRAIN/INJECT MAJOR JOINT OR BURSA On: 07-Feb-2018 Intent ()By: Keri Singh MD Comments: lot no [id number] exp date 2017-12-26 DRAIN/INJECT MAJOR JOINT OR BURSA On: 31-Jan-2018 Intent ()By: Keri Singh MD Comments: Lot#[id number]:0-07-06Ysvxu:intra articular Site given:left knee Given By: Dr. Singh [facility] signed DRAIN/INJECT MAJOR JOINT OR BURSA On: 24-Jan-2018 Intent ()By: Keri Singh MD Comments: Lot#[id number]: 0-20-88Xgtjr:intra artciular Site given:left knee Given By: Dr. Singh ABN signed Euflexxa Echo CompleteBy: Fast DO, Chaparrita A On: 16-Dec-2017 Intent Fast DO, Chaparrita A Flu Vaccine (Quadrivalent) 75951Pv: On: 16-Dec-2017 Intent Fast DO, Chaparrita A Fast DO, Chaparrita A Comments: Lot: [id number]: 10/01/18Site: L dltd, IMDose prefilled syringegiven by: Jamie reviewed and ABN signed Kenalog Injection, 10 mgm On: 03-Oct-2017 Intent (J3301)By: Keri Singh MD Comments: lot: [id number]: 11/20site/route: L knee Cartoid DopplerBy: Fast DO, Chaparrita A On: 12-Sep-2017 Intent Fast DO Chaparrita A Comments: november DIGITAL TOMOSYNTHESIS OF On: 12-Sep-2017 Intent BREAST (27224)By: Case Albrecht DOa A Comments: due november 02 Ambrocio WOLFF, Chaparrita A Kenalog Injection, 10 mgm On: 06-Jun-2017 Intent (J3301)By: Keri Singh MD Comments: bupivacacine 0.5% [id number] exp 09-20 kenalog 40 mg injected in. [id number] 07-21 MRI OF BRAIN WITH AND WITHOUT On: 06-Jun-2017 Intent CONTRAST (87998)By: Case Albrecht DOa A Fast DO, Chaparrita A ELECTROCARDIOGRAM, COMPLETE (ECG) On: 06-Jun-2017 Intent (12374)By: Ambrocio WOLFF Chaparrita A Fast Comments: ekg [...] 10-May-2017 Intent 1000 CC (Special Coverage Comments: lot:[id number]:IV left anticub dose:1000ml given by:eliazar HUMPHREY signedER, PUMPING SUPERVISOR Instructions Apply. See [facility]: 2048) (J7030)By: Ambrocio WOLFF Chaparrita A Fast DO, Chaparrita A Radiology - Chest- PA and LatBy: On: 05-May-2017 Intent Keri Singh MD Aerosol Treatment (50884)By: On: 05-May-2017 Intent Keri Singh MD Radiology - ChestBy: Francisco MANN, On: 05-May-2017 Intent Keri Alonzo Comments: call wet read DRAIN/INJECT MAJOR JOINT OR BURSA On: 28-Feb-2017 Intent ()By: Keri Singh MD Comments: 1 cc Kenelog #[id number] cc Marcaine #[id number] Kenalog Injection, 10 mgm On: 28-Feb-2017 Intent (J3301)By: Keri Singh MD ELECTROCARDIOGRAM, COMPLETE (ECG) On: 10-Jan-2017 Intent (48835)By: Chaparrita Albrecht DO Comments: ekg showed normal sinus rhythym, normal axis, no acute st/t wave changes Chaparrita WOLFF Flu Vaccine (Quadrivalent) 55903Td: On: 27-Dec-2016 Intent SHONDA Andrade DRAIN/INJECT MAJOR JOINT OR BURSA On: 20-Aug-2016 Intent ()By: Keri Singh MD DRAIN/INJECT MAJOR JOINT OR BURSA On: 13-Aug-2016 Intent ()By: SHONDA Andrade Comments: lot: [id number]:1-31-8749joz:intra articular dose:2ml given by:Dr. Francisco HUMPHREY signedER, PUMPING SUPERVISOR injection #3 DOPPLER ULTRASOUND OF RIGHT CAROTID On: 10-Aug-2016 Intent ARTERY (19985)By: Case Albrecht DOa A Comments: end of october Ambrocio DO, Chaparrita A DEXA SCAN AXIAL SKELETON (98749)By: On: 10-Aug-2016 Intent Ambrocio WOLFF Chaparrita A Fast DO, Chaparrita A Comments: end october SCREENING DIGITAL TOMOSYNTHESIS OF On: 10-Aug-2016 Intent BREAST (69016)By: Case Albrecht DOa A Comments: end of october Ambrocio WOLFF, Chaparrita A DRAIN/INJECT MAJOR JOINT OR BURSA On: 06-Aug-2016 Intent ()By: Keri Singh MD DRAIN/INJECT INTERMED JOINT/BURSA On: 06-Aug-2016 Intent ()By: SHONDA Andrade Comments: lot:[id number]:left knee dose:2mlgiven by:Dr. Francisco HUMPHREY signedER, PUMPING SUPERVISOR injection number 2 Venous Doppler - LeftBy: Ambrocio WOLFF, On: 03-Aug-2016 Intent Chaparrita A Fast DO, Chaparrita A Comments: This is set up for August 05 at 11am- spoke with Rina in cv. DRAIN/INJECT INTERMED JOINT/BURSA On: 30-Jul-2016 Intent ()By: Keri Singh MD Comments: lot:[id number]:[id number]:intra articular left knee dose: 2ml given by: Dr. Singh ABN signedER, PUMPING SUPERVISOR injection #1 Radiology - Knee - LeftBy: Fast DO, On: 26-May-2016 Intent Chaparrita A Fast DO, Chaparrita A Flu Vaccine (Quadrivalent) 54397Vg: On: 27-Jan-2016 Intent Fast DO, Chaparrita A Fast DO, Chaparrita A Comments: Lot #:[id number] date:10/01/16mount given:0.5mlRoute: IMSite given: left deltoidGiven by: CARMELINA Hook [facility] On: 27-Jan-2016 Intent VACCINE (G0008)By: Fast DO, Chaparrita A Fast DO, Chaparrita A DOPPLER ULTRASOUND OF RIGHT CAROTID On: 22-Oct-2015 Intent ARTERY (72528)By: Fast DO, Chaparrita A Fast DO, Chaparrita A MAMMOGRAM, SCREENING, BOTH BREAST On: 22-Oct-2015 Intent (92794)By: Fast DO, Chaparrita A Fast DO, Chaparrita A Ultrasound - RenalBy: Fast DO, On: 14-Jul-2015 Intent Chaparrita A Fast DO, Chaparrita A Radiology - Knee - Left - Weight On: 11-Mar-2015 Intent BearingBy: Fast DO, Chaparrita A Fast DO, Chaparrita A Radiology - Knee - Right - Weight On: 11-Mar-2015 Intent BearingBy: Fast DO, Chaparrita A Fast DO, Hcaparrita A Flu Vaccine (Quadrivalent) 93935Qw: On: 11-Feb-2015 Intent Fast DO, Chaparrita A Fast DO, Chaparrita A EKG (66903)By: Fast DO, Chaparrita A On: 05-Nov-2014 Intent Fast DO, Chaparrita A Comments: ekg showed normal sinus rhythym, normal axis, no acute st/t wave changes left axis DRAIN/INJECT SMALL JOINT OR BURSA On: 07-Oct-2014 Intent ()By: Keri Singh MD MAMMOGRAM, SCREENING, BOTH BREAST On: 02-Aug-2014 Intent (67372)By: Chaparrita Albrecht DO Comments: Chaparrita estes DO A Cartoid DopplerBy: Ambrocio DO Chaparrita A On: 02-Aug-2014 Intent Ambrocio DO Chaparrita A DEXA SCAN AXIAL SKELETON (60917)By: On: 09-Apr-2014 Intent Ambrocio WOLFF, Chaparrita A Fast DO, Chaparrita A Prevnar 13 ([id number])By: Ambrocio WOLFF, On: 30-Jan-2014 Intent Chaparrita Albrecht DO, Chaparrita A Comments: Lot:[id number]:05/20Dose:0.5Route:imSite:l armGiven By:Jarred signed FLU VAC, SPLIT, >3 YEARS, INTRAMUSC On: 16-Jan-2014 Intent ([id number])By: Chaparrita Albrecht DO Comments: Lot #:[id number] date:12/2015Amount given:0.5mlRoute: IMSite given: left deltoidGiven by: CARMELINA Hook DO Chaparrita A ADMINISTRATION OF INFLUENZA VIRUS On: 16-Jan-2014 Intent VACCINE ([id number])By: Chaparrita Albrecht DO, DO, Chaparrita A EKG ([id number])By: Chaparrita Albrecht DO A On: 17-Oct-2013 Intent Amrbocio WOLFF Chaparrita A Comments: ekg showed normal sinus rhythym, left axis, no acute st/t wave changes Radiology - Chest- PA and LatBy: On: 17-Sep-2013 Intent Ambrocio WOLFF Chaparrita A Ambrocio DO, Chaparrita A Aerosol Treatment ([id number])By: Ambrocio On: 17-Sep-2013 Intent Chaparrita WOLFF A Ambrocio DO, Chaparrita A MRI - BrainBy: Ambrocio WOLFF Chaparrita A On: 22-Jul-2013 Intent Ambrocio DO, Chaparrita A Cartoid DopplerBy: Ambrocio DO Chaparrita A On: 20-Jul-2013 Intent Ambrocio WOLFF Chaparrita A MAMMOGRAM, SCREENING, BOTH BREASTS On: 20-Jul-2013 Intent ([id number])By: Chaparrita Albrecht DO DO, Chaparrita A Eprescribed prescriptions On: 20-Jul-2013 Intent ([id number])By: Chaparrita Albrecht DO DO, Chaparrita A Eprescribed prescriptions On: 02-Feb-2013 Intent ([id number])By: Марина Concepcion FLU VAC, SPLIT, >3 YEARS, INTRAMUSC On: 03-Jan-2013 Intent ([id number])By: Марина Concepcion Comments: Lot #:[id number] date:mount given:0.5mlRoute: IMSite given: L dltdVIS and ABN signedGiven by: CARMELINA Hook ADMINISTRATION OF INFLUENZA VIRUS On: 03-Jan-2013 Intent VACCINE (G0008)By: Марина Concepcion CT - Abdomen & Pelvis (IV Contrast On: 17-Oct-2012 Intent Needed)By: Chaparrita Albrecht DO Comments: patient will be calling to set up DO Chaparrita A Eprescribed prescriptions On: 10-Oct-2012 Intent ([id number])By: Марина Concepcion Ear Irrigation ([id number])By: [place], On: 13-Jun-2012 Intent Ivy Comments: Ear Irrigation performed on: right earAmount/color removed cerumen: light brown, small amount removedOUtcome:Pt toleratedUsed wax curettes Wax Currettes ([id number])By: [place], On: 13-Jun-2012 Intent Ivy PNEUM VAC ADLT/IMUMNOSPR, SBC/INTRM On: 13-Jun-2012 Intent ([id number])By: Chaparrita Albrecht DO Comments: Lot:[id number]:09/09/13Dose:0.5mLRoute:IMSite:L armGiven By:BHUMI signed Chaparrita WOLFF A EKG ([id number])By: Chaparrita Albrecht DO On: 13-Jun-2012 Intent Chaparrita [...] MAMMOGRAM, SCREENING, BOTH BREASTS On: 28-Dec-2011 Intent ([id number])By: Fast DO, Chaparrita A Fast DO, Chaparrita A DXA, BONE DENSITY, AXIAL SKELETON On: 28-Dec-2011 Intent ([id number])By: Fast DO, Chaparrita A Fast DO, Chaparrita [...] SPLIT, >3 YEARS, INTRAMUSC On: 28-Dec-2011 Intent ([id number])By: Марина Concepcion Comments: Lot #:[id number] date:mount given:0.5mlRoute: IMSite given: left deltoidGiven by: CARMELINA Hook ADMINISTRATION OF INFLUENZA VIRUS On: 28-Dec-2011 Intent VACCINE (G0008)By: Марина Concepcion Aerosol Treatment ([id number])By: Ciesa On: 30-Nov-[address] - Abdomen & PelvisBy: Fast DO, On: 21-Sep-2011 Intent Chaparrita A Fast DO, Chaparrita A Comments: with special cuts through the kidney- october EKG ([id number])By: Марина Concepcion On: 15-Jun-2011 Intent Comments: ekg [...] Comments: Call results to Dr. Albrecht @ [phone] as soon as resulted please. DO, Chaparrita A Eprescribed prescriptions On: 11-Jan-2011 Intent ([id number])By: Fast DO, Chaparrita A Fast DO, Chaparrita A MAMMOGRAM, SCREENING, BOTH BREASTS On: 11-Jan-2011 Intent ([id number])By: Fast DO, Chaparrita A Fast DO, Chaparrita A CT - Sinuses CompleteBy: Fast DO, On: 11-Jan-2011 Intent Chaparrita A Fast DO, Chaparrita A Cartoid DopplerBy: Fast DO, Chaparrita A On: 11-Jan-2011 Intent Fast DO, Chaparrita A ADMINISTRATION OF INFLUENZA VIRUS On: 11-Jan-2011 Intent VACCINE ([id number])By: Марина Concepcion FLU VAC, SPLIT, >3 YEARS, INTRAMUSC On: 11-Jan-2011 Intent ([id number])By: Марина Concepcion Eprescribed prescriptions On: 12-Oct-2010 Intent ([id number])By: Ambrocio DO, Chaparrita A Fast DO, Chaparrita A Renal DopplerBy: Fast DO, Chaparrita A On: 12-Oct-2010 Intent Fast DO, Chaparrita A Cartoid DopplerBy: Fast DO, Chaparrita A On: 12-Oct-2010 Intent Fast DO, Chaparrita A Comments: sept TDAP VACCINE >7 IM ([id number])By: On: 13-May-2010 Intent Helena Tineo LPN Comments: Lot #[id number]/25/13Site-left deltoidgiven by:[facility] EKG ([id number])By: Марина Concepcion On: 13-May-2010 Intent Comments: ekg showed normal sinus rhythym, normal axis, no acute st/t wave changes Aerosol Treatment ([id number])By: Charlene On: 22-Dec-2009 Intent [facility], Johanna Espinal DopplerBy: Fast DO, Chaparrita A On: 01-Dec-2009 Intent Fast DO, Chaparrita A MAMMOGRAM, SCREENING, BOTH BREASTS On: 01-Dec-2009 Intent ([id number])By: Fast DO, Chaparrita A Fast DO, Chaparrita A DXA, BONE DENSITY, AXIAL SKELETON On: 01-Dec-2009 Intent ([id number])By: Fast DO, Chaparrita A Fast DO, Chaparrita A Ultrasound - SpleenBy: Fast DO, On: 17-Jun-2009 Intent Chaparrita A Fast DO, Chaparrita A EKG ([id number])By: Марина Concepcion On: 10-Mar-2009 Intent Comments: ekg showed normal sinus rhythym, normal axis, no acute st/t wave changes FLU VAC, SPLIT, >3 YEARS, INTRAMUSC On: 09-Jan-2009 Intent ([id number])By: Stacy Jorge Comments: Lot #[id number]-left deltoidDose0.5mlgiven by Marycarmen Jorge LPN ADMINISTRATION OF INFLUENZA VIRUS On: 09-Jan-2009 Intent VACCINE (G0008)By: Stacy Jorge MAMMOGRAM, SCREENING, BOTH BREASTS On: 04-Dec-2008 Intent ([id number])By: Fast DO, Chaparrita A Fast DO, Chaparrita A MAMMOGRAM, SCREENING, BOTH BREASTS On: 03-Sep-2008 Intent ([id number])By: Fast DO, Chaparrita A Fast DO, Chaparrita A FLU VAC, SPLIT, >3 YEARS, INTRAMUSC On: 16-Jan-2008 Intent ([id number])By: Janet Scherer RN Comments: Lot #: [id number] date: 09/10Amount given: 0.5 mlRoute: IMSite given: Left deltoidGiven by: Olivia Bell LPN ADMINISTRATION OF INFLUENZA VIRUS On: 16-Jan-2008 Intent VACCINE (G0008)By: Janet Scherer RN EKG ([id number])By: Ambrocio DO, Chaparrita A On: 29-Aug-2007 Intent Fast DO, Chaparrita A Comments: done km ADMINISTRATION OF PNEUMOCOCCAL On: 29-Aug-2007 Intent VACCINE ([id number])By: Fast DO, Chaparrita A Fast DO, Chaparrita A PNEUM VAC ADLT/IMUMNOSPR, SBC/INTRM On: 29-Aug-2007 Intent ([id number])By: Fast DO, Chaparrita A Fast Comments: 0.5cc given im lt arm [id number] exp 02-13-08 DO, Chaparrita A DXA, BONE DENSITY, AXIAL SKELETON On: 29-Aug-2007 Intent ([id number])By: Fast DO, Chaparrita A Fast DO, Chaparrita A MAMMOGRAM, SCREENING, BOTH BREASTS On: 29-Aug-2007 Intent ([id number])By: Fast DO, Chaparrita A Fast DO, Chaparrita [...] new people and be involved in the [employer] 0 bps are good and sugar looking [...] medical issues: she has been working with [employer] and trying to work on that- she got rid of respiratory infection but was sick for weeks and was on pred so her sugar up and chol up a bit- trying to add protein shakes drink more water- she is starting back [facility]- diarrhea resolved- we did talk about going [...] that she had episode where went to [facility] and she couldnt remember where she was- and happened one other time where she didnt recognize the roads- sister had alzheimer s- weight down because was sick- but coming back up- she hasnt done counseling with hospice has been thru before- she lonely- not necessarily unhappy- she doing self help she is singing with [employer]- -rodriguez gars are all in low 100s-130- going to [facility] for a month next monthEncounter Diagnosis: Nonsmoker, [...] Eddie and bp is good she joined [employer] sugar up bit doi ng ice cream-the bone density reviewed little thinner she not exercising routienly until just recent at [employer] and sees kidney doc next week and [...] maribel yfriend in hospice - going to [facility] end [facility] month- too much to care [...] Patient sleeps 8 hours per night. [facility]: [facility]. The medical issues the patient [...] acuity (yearly). Note for Physical exam: [facility] Wellness Physical- Talk about trying Myrbetriq., [ADDITIONAL REASON] Follow up, Laboratory Test Results - Date: (09/2015- [facility] labs). , [ADDITIONAL REASON] Itching [...] asymptomatic, right, Hypertension, benign, Colon Polyp, [facility] WELLNESS PHYSICAL, Osteopenia (733.90), Pruritus, [...] Meningioma (Renamed from 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, 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, BRAIN/HEAD OF QUALITY NEC (794.09)) [facility] Visit [...] Meningioma (Renamed from 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, 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, BRAIN/HEAD OF QUALITY NEC (794.09)), Diabetes, Type II, controlled (250.00), [...] cant take byetta due to cost in [facility]- - takes ??lorazepam 1-2 times a week [...] Meningioma (Renamed from 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, 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, BRAIN/HEAD OF QUALITY NEC (794.09)), Colon Polyp [facility] [...] Meningioma (Renamed from 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, 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, BRAIN/HEAD OF QUALITY NEC (794.09)), OCCLUSION AND STENOSIS OF CAROTID [...] Meningioma (Renamed from 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, 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, BRAIN/HEAD OF QUALITY NEC (794.09)), Chronic glomerulonephritis with lesion of [...] Meningioma (Renamed from 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, 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, BRAIN/HEAD OF QUALITY NEC (794.09)), Other and unspecified hyperlipidemia (272.4), [...] Meningioma (Renamed from 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, 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, BRAIN/HEAD OF QUALITY NEC (794.09)) [facility] Visit [...] Meningioma (Renamed from 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, 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, BRAIN/HEAD OF QUALITY NEC (794.09)), Gerd (530.81), Hyperlipidemia, Unspecified (272.4), [...] Meningioma (Renamed from 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, 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, BRAIN/HEAD OF QUALITY NEC (794.09)), Hypertension,benign(401.1), OCCLUSION AND STENOSIS OF [...] Meningioma (Renamed from 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, 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, BRAIN/HEAD OF QUALITY NEC (794.09)), Diabetes, Type II, controlled (250.00), [...] Meningioma (Renamed from 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, 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, BRAIN/HEAD OF QUALITY NEC (794.09)), Hypertension,benign(401.1), Osteopenia (733.90), Depression (311.), [...] weight down 23 pounds- and trying joined [employer]- she feels well - she increased celexa [...] Meningioma (Renamed from 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, 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, BRAIN/HEAD OF QUALITY NEC (794.09)), Chronic glomerulonephritis with lesion of [...] Meningioma (Renamed from 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, 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, BRAIN/HEAD OF QUALITY NEC (794.09)) End: 26-Jan-2011 16:53 [facility] Office Visit On: 19-Jan-2011 14:30 Encounter Diagnosis: brain tumor End: 21-Sep-2011 8:09 [facility] Phone Encounter On: 19-Jan-2011 13:41 Encounter Diagnosis: 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, 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, BRAIN/HEAD OF QUALITY NEC (794.09) End: 19-Jan-2011 13:44 [facility] [...] again -- she is getting surgery on [facility]-- her bps have been running 90s at [...] (V04.81), Degenerative Disc Disease - Lumbar (722.52), [facility] [place] [facility] Office Visit On: 06-Dec-2007 [...] WITH RADICULOPATHY (724.4) [facility] Payers MedicareAA/[facility]ERT; olivia guarantor
--- OUTSIDE RECORDS SUMMARY | 2018-06-25 21:38 | XMS RPT_ITS | Continuity of Care Document ---
:1940 Author Organization [facility] Address [address] [place] [address] Phone Care Team Providers Name Role Phone [...] Knee pain, unspecified laterality (719.46) Comments: Valorie:lot: [id number]: 09/20site/route: L knee Status: Active Leg pain, [...] Quantity: 1 {Box} Refills: 3 Ordered:18-Sep-2013 DO, Hcaparrita AFast DO, Chaparrita A Start : 18-Sep-2013 [...] Quantity: 60 {Tablet} Refills: 0 Ordered:16-Dec-2017 DO, Chaparrtia AFast DO, Chaparrita A Start : 16-Dec-2017 [...] days Quantity: 90 {Tablet} Refills: 3 Ordered:22-Aug-2017 Fast DO, Chaparrita AFast DO, Chaparrita A Start : 22-Aug-2017 Active Trulicity 1.5 MG/0.5ML Subcutaneous Solution Pen-injector 1 (one) Milligram q week for 0 days Quantity: 3 {Milligram} Refills: 0 Ordered:22-Mar-2018 Fast DO, Chaparrita AFast DO, Chaparrita A Start : 22-Mar-2018 Active Comments:[id number] 09/20 Victoza 18 MG/3ML Subcutaneous Solution Pen-injector [...] spray daily for 0 days Quantity: 1 {Sherman} Refills: 0 Ordered:04-May-2016 SHONDA Andrade Start : [...] and dispense 8 ounes TOTAL mixed solutionCal [id number] if questions SPECTAZOLE, 1% (External Cream) 1 [...] End : 11-Feb-2015 Discontinued Comments:th[age], called to [facility] 08-30-14 erussell Allergies and Adverse Reactions [...] 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 2016 right Cholecystectomy Completed lumbar wpwixb==3274 Completed Tonsillectomy Completed Date Value Details 19-Dec-2017 Echocardiogram Complete Result: Comments: See Note; NOTES: [facility] Cardiovascular Services [address] [place] [address] Echo Complete 12/19/17 0800 MR#: [id number] Acct: [id number] Name: CLARENCE ALBERT ep #: [id number] : 1940 77 From: Chuckie Cormier MD Attending Dr: Chaparrita Albrecht DO Status: REG CLI Ordering Dr: Chaparrita Albrecht DO Date: 12/19/17 Location: [facility] Sex: F C Admitted: Reason For [...] Dictated: 12/19/17 0800 Date Transcribed: 12/19/17 1022 Em Physician: Signed 07-Dec-2017 Carotid Duplex Ultrasound Result: Comments: See Note; NOTES: [facility] Cardiovascular Services [address] [place] [address] Carotid Duplex Ultrasound 12/06/17 0901 MR#: [id number] Acct: [id number] Name: CLARENCE WHITTINGTON Rep #: [id number] : 1940 77 From: Anurag Loya MD [...] the left vertebral artery. Procedure Carotid Duplex 08501. Exam performed in department. Interpretation Summary Mild (<50%) stenosis right extracranial internal carotid. Mild (<50%) stenosis left extracranial internal carotid. Flow within the vertebral arteries is antegrade bilaterally. __ __ Ordering Physician: Chaparrita Albrecht Performed By: Margot Benton RVT and Student 12/07/17808 Date Anurag Loya MD CC: Chaparrita Albrecht DO Date Dictated: 12/06/17900 Date Transcribed: 12/07/17808 Em Physician: Signed 06-Dec-2017 SCREENING MAMM (CAD), BILAT Result: Comments: See Note; NOTES: [facility] Imaging Services [address] [place] [address] SCREENING MAMM (CAD), BILAT MR#: [id number] Acct: [id number] Name: CLARENCE ALBERT Rep #: [id number] : 1940 F 77 From: Misael Hebert MD PCP: Chaparrita Albrecht DO Status: REG CLI Study: SCREENING MAMM (CAD), BILAT Date of Exam: 12/06/17 Exam# [id number] Ordering Dr: Chaparrita Albrecht DO MAMM OGRAPHY [...] delay biopsy of a clinically suspicious abnormality. [id number] Electronically Signed: Misael Hebert MD at 15:31 EDT Tel [phone], Se rvice support , CC: Chaparrita Albrecht DO Em Physician: Signed 10-Jun-2017 Brain W/WO Contrast Result: Comments: See Note; NOTES: [facility] Imaging Services [address] [place] [address] Brain W/WO Contrast MR#: [id number] Acct: [id number] Name: CLARENCE ALBERT Rep #: [id number] : 1940 F 77 From: Laya Montilla MD PCP: Chaparrita Albrecht DO Status: REG CLI Study: Brain W/WO Contrast Date of Exam: 06/10/17 Exam# [id number] Ordering Dr: Chaparrita Albrecht DO STUDY: MRI [...] Service support , CC: Chaparrita Albrecht DO Em Physician: Signed 05-May-2017 Chest PA and Lateral Result: Comments: See Note; NOTES: [facility] Imaging Services [address] [place] [address] Chest PA and Lateral MR#: [id number] Acct: [id number] Name: CLARENCE ALBERT Rep #: [id number] : 1940 F 77 From: Edwar Patino MD PCP: Chaparrita Albrecht DO Status: REG CLI Study: Chest PA and Lateral Date of Exam: 05/05/17 Exam# [id number] Ordering Dr: Keri Singh MD STUDY: X-RAY [...] CC: Keri Singh MD; Chaparrita Albrecht DO Em Physician: Signed 02-Nov-2016 Dexa Bone Density Study (HP) Result: Comments: See Note; NOTES: [facility] Imaging Services [address] [place] [address] Verdana 4d Dexa Bone Density Study () MR#: [id number] Acct: [id number] Name: LYNNE ALBERT Rep #: [id number] : 1940 F 76 From: Misael Hebert MD PCP: Chaparrita Albrecht DO Status: REG CLI Study: Dexa Bone Density Study () Date of Exam: 11/02/16 Exam# [id number] Ordering Dr: Laura DO STUDY: DUAL ENERGY [...] Misael Hebert MD at 11:02 EDT Tel [phone], Service support , CC: Chaparrita Albrecht DO Em Physician: Signed 02-Nov-2016 SCREENING MAMM (CAD), BILAT Result: Comments: See Note; NOTES: [facility] Imaging Services [address] [place] [address] Verdana 4d SCREENING MAMM (CAD), BILAT MR#: [id number] Acct: [id number] Name: CLARENCE ALBERT Rep #: [id number] : 1940 F 76 From: Misael Hebert MD PCP: Chaparrita Albrecht DO Status: REG CLI Study: SCREENING MAMM (CAD), BILAT Date of Exam: 11/02/16 Exam# [id number] Ordering Dr: Case Albrecht DO MAMMOGRAPHY - [...] delay biopsy of a clinically suspicious abnormality. [id number] Electronically Signed: Misael Hebert MD at 12:44 EDT Tel [phone], Service support , CC: Chaparrita Albrecht DO Em Physician: Signed 05-Aug-2016 Venous Duplex Lower Extremity Result: Comments: See Note; NOTES: [facility] Cardiovascular Services [address] [address] Venous Duplex US, Unilateral 08/05/16 1053 MR#: [id number] Acct: [id number] Name: CLARENCE WEI Rep #: [id number] : 1940 76 From: Elvin Natarajan MD [...] Dictated: 08/05/16 1053 Date Transcribed: 08/05/16 1127 Em Physician: Signed 27-May-2016 Knee 4 or More Views Result: Comments: See Note; NOTES: [facility] Imaging Services [address] [place] [address] Verdana 4d Knee 4 or More Views MR#: [id number] Acct: [id number] Name: CLARENCE ALBERT Rep #: [id number] : 1940 F 76 From: Misael Hebert MD PCP: Chaparrita Albrecht DO Status: REG CLI Study: Knee 4 or More Views Date of Exam: 05/27/16 Exam# [id number] Ordering Dr: Kylah Linda DO UDY: X-RAY [...] MD at 10:41 EST , Service support [phone], CC: Chaparrita Albrecht DO; Kylah Linda DO Em Physician: Signed 13-May-2016 Sinus/Facial Bone Result: Comments: See Note; NOTES: [facility] Imaging Services [address] [place] [address] Verdana 4d Sinus/Facial Bone MR#: [id number] Acct: [id number] Name: CLARENCE ALBERT Rep #: [id number] : 1940 F 76 From: Godwin Winter MD PCP: Chaparrita Albrecht DO Status: REG CLI Study: Sinus/Facial Bone Date of Exam: 05/13/16 Exam# [id number] Ordering Dr: Alejandro Silverman MD STUDY: CT [...] MD at 7:35 EST , Service support [phone], CC: Chaparrita Albrecht DO; Alejandro Silverman MD Em Physician: Signed 21-Apr-2016 Emergency Department Summary Result: Comments: See Note; NOTES: [facility] Medical Records Department [address] [place] [address] Emergency Department Summary MR#: [id number] Acct: [id number] Name: CLARENCE ALBERT Rep #: [id number] : 1940 76 From: Carissa Murphy MD [...] Left anterior epistaxis. CARISSA MURPHY MD T: [facility] JOB: [id number] 04/21/1606 <Electronically signed by Carissa Murphy MD> Date Carissa donovan MD Cosigner Signature (If Indicated): Date CC: Chaparrita Albrecht DO Date Dictated: 04/20/161711 Date Transcribed: 04/20/161711 Em Physician: Signed 20-Apr-2016 Discharge Instruction Result: Comments: See Note; NOTES: [facility] Medical Records Department [address] [place] [address] Discharge Instruction 04/20/16 1303 MR#: [id number] Acct: [id number] Name: CLARENCE ALBERT Rep #: [id number] : 1940 76 From: Carissa Murphy MD [...] your Primary Care Provider. Call [facility] ([phone]) or report to the closest Emergency Room. Call 911 if necessary. 04/20/16 1645 <Electronically signed by Carissa Murphy MD> Date Carissa Murphy MD Cosigner Signature (If I ndicated): Date CC: Chaparrita Albrecht DO 02-Nov-2015 Carotid Duplex Ultrasound Result: Comments: See Note; NOTES: [facility] Cardiovascular Services [address] [place] [address] Carotid Duplex Ultrasound 10/30/15 1100 MR#: [id number] Acct: [id number] Name: CLARENCE ALBERT Rep #: [id number] : 1940 75 From: Elvin Natarajan MD Attending Dr: Chaparrita Albrecht DO Status: REG CLI Ordering Dr: Chaparrita Albrecht DO Date: 10/30/15 Location: [facility] Sex: F C Adm itted: Reason For [...] the left vertebral artery. Procedure Carotid Duplex 87747. The exam was diagnostic. Exam performed in [...] EVELIN, RVT 11/02/15 1143 Date ___ Elvin Natarjaan MD CC: Chaparrita Albrecht DO Date Dictated: 10/30/15 1100 Date Transcribed: 11/02/15 1143 Em Physician: Signed 30-Oct-2015 Bilat Scrn Digital AND CAD Result: Comments: See Note; NOTES: [facility] Imaging Services [address] [place] [address] Verdana 4d Bilat Scrn Digital AND CAD MR#: [id number] Acct: [id number] Name: CLARENCE ALBERT Rep #: [id number] : 1940 F 75 From: Andres Brady MD PCP: Chaparrita Albrecht DO Status: REG CLI Study: Bilat Scrn Digital AND CAD Date of Exam: 10/30/15 Exam# [id number] Ordering Dr: Chaparrita Albrecht DO MAMMOGRAPHY - [...] biop sy of a clinically suspicious abnormality. [id number] Electronically Signed: Andres Brady MD at 17:48 EDT Tel , Service support [phone], CC: Chaparrita Albrecht DO Em Physician: Signed 30-Oct-2015 Bilat Ld Digital AND CAD Result: Comments: See Note; NOTES: [facility] Imaging Services [address] [place] [address] Verdana 4d Bilat Scrn Digital AND CAD MR#: [id number] Acct: [id number] Name: CLARENCE ALBERT Rep #: [id number] : 1940 F 75 From: Andres Brady MD PCP: Chaparrita Albrecht DO Status: REG CLI Study: Bilat Ld Digital AND CAD Date of Exam: 10/30/15 Exam# [id number] Ordering Dr: Chaparrita Albrecht DO MAMMOGRAPHY - [...] abnormalities are identified. CC: Chaparrita Albrecht DO Em Physician: Signed 22-Oct-2015 ELECTROCARDIOGRAM, COMPLETE (ECG) (92619) Comments: ekg showed normal sinus rhythym, normal axis, no acute st/t wave changes no change Result: [MEASUREMENTS ANALYSIS] Date of Test: 10/22/2015 14:41:29; Heart Rate: 71; [place] Interval: 140; QRS: 94; QT Interval: 384; Corrected QT Interval (QTc): 403; P Wave Polk: 58; QRS Wave Polk: -3; T Wave Polk: 56; Blood Pressure: 128/76 [ECG DIAGNOSTIC STATEMENTS] Date of Test: 10/22/2015 14:41:29; Summary: Sinus Rhythm Low voltage -possible pulmonary disease. ABNORMAL 22-Jul-2015 Kidney and Bladder Result: Comments: See Note; NOTES: [facility] Imaging Services [address] [place] [address] Verdana 4d Kidney and Bladder MR#: [id number] Acct: [id number] Name: Yaniv ALBERT Rep #: [id number] : 1940 F 75 From: Nir Sanchez MD PCP: Chaparrita Albrecht DO Status: REG CLI Study: Kidney and Bladder Date of Exam: 07/22/15 Exam# [id number] Ordering Dr: Chaparrita Albrecht DO STUDY: RENAL ULTRASOUND - COMPLETE REASON FOR EXAM: Female, 75 years old. Renal mass TECHNIQUE: Ultrasound evaluation of the kidneys was performed with real-time and static sgeovia-scale imaging. CO MPARISON: None. FINDINGS: RIGHT KIDNEY: [...] at 4:59 EDT Tel , Service support [phone], CC: Chaparrita Albrecht DO Em Physician: Signed 11-Mar-2015 Knee 4 or More Views Result: Comments: See Note; NOTES: [facility] Imaging Services [address] [place] [address] Verdana 4d Knee 4 or More Views MR#: [id number] Acct: [id number] Name: CLARENCE ALBERT Rep #: [id number] : 1940 F 74 From: Trent Cameron DO PCP: Chaparrita Albrecht DO Status: REG CLI Study: Knee 4 or More Views Date of Exam: 03/11/15 Exam# [id number] Ordering Dr: Case Albrecht DO STUDY: X-RAY [...] at 7:45 EST Tel , Service support [phone], RAD/Knee 4 or More Views IMPRESSION: Degener ative changes within the knee. No acute fracture. Small suprapatellar effusion. Electronically Signed: Trent Cameron DO at 7:45 EST Tel , Service support [phone], CC: Chaparrita Albrecht DO Em Physician: Signed 11-Mar-2015 Knee 4 or More Views Result: Comments: See Note; NOTES: [facility] Imaging Services [address] [place] [address] Verdana 4d Knee 4 or More Views MR#: [id number] Acct: [id number] Name: CLARENCE ALBERT Rep #: [id number] : 1940 F 74 From: Trent Cameron DO PCP: Chaparrita Albrecht DO Status: REG CLI Study: Knee 4 or More Views Date of Exam: 03/11/15 Exam# [id number] Ordering Dr: Case Albrecht DO STUDY: X-RAY [...] at 7:46 EST Tel , Service support [phone], RAD/Knee 4 or More Views IMPRESSION: Mild degenerative changes. No acute bony abnormality. Electronically Signed: Trent Cameron DO at 7:46 EST Tel , Service support [phone], CC: Chaparrita Albrecht DO Em Physician: Signed 18-Oct-2014 Carotid Duplex Ultrasound Result: Comments: See Note; NOTES: [facility] Cardiovascular Services [address] [place] [address] Carotid Duplex Ultrasound 10/18/14 1331 MR#: [id number] Acct: [id number] Na me: CLARENCE ALBERT Rep #: [id number] : 1940 74 From: Elvin Natarajan MD [...] the left vertebral artery. Procedure Carotid Duplex 85178. The exam was diagnostic. Exam performed in [...] Dictated: 10/18/14 1331 Date Transcribed: 10/18/14 161 Em Physician: Signed 18-Oct-2014 Saad Jaffe Digital AND CAD Result: Comments: See Note; NOTES: [facility] Imaging Services [address] [place] [address] Breast Imaging Report MR#: [id number] Acct: [id number] Name: CLARENCE ALBERT Rep #: [id number] : 1940 F 74 From: Misael Hebert MD PCP: Chaparrita Albrecht DO Status: REG CLI Study: Saad Jaffe Digital AND CAD Date of Exam: 10/18/14 Exam# [id number] Ordering Dr: Chaparrita Albrecht DO MAMMOGRAPHY - [...] Misael redmond MD at 13:44 EDT Tel [phone], Service support [phone], CC: Chaparrita Albrecht DO Em Physician: Signed 09-Jul-2014 Dexa Bone Density Study (HP) Result: Comments: See Note; NOTES: [facility] Imaging Services [address] [place] [address] Bone Density Report MR#: [id number] Acct: [id number] Name: CLARENCE ALBERT Rep #: [id number] : 1940 F 74 From: Misael Hebert MD PCP: Chaparrita Albrecht DO Status: [facility] CL Study: Dexa Bone Density Study (HP) Date of Exam: 07/09/14 Exam# [id number] Ordering Dr: Chaparrita Albrecht DO STUDY: DUAL [...] Angel Hebert MD at 14:55 EDT Tel [phone], Service support [phone], CC: Chaparrita Albrecht DO Em Physician: Signed 17-Sep-2013 Chest PA and Lateral Result: Comments: See Note; NOTES: [facility] Imaging Services [address] [place] [address] Radiology Report MR#: [id number] Acct: [id number] Name: CLARENCE ALBERT Rep #: [id number] : 1940 F 73 From: David Bennett MD PCP: Chaparrita Albrecht DO Status: REG CLI Study: Chest PA and Lateral Date of Exam: 09/17/13 Exam# [id number] Ordering Dr: Chaparrita Albrecht DO STUDY: X-RAY [...] MD at 20:44 EDT , Service support [phone], RAD/Chest PA and Lateral IMPRESSION: No focal infiltrate or edema. Electronic ally Signed: David Bennett MD at 20:44 EDT , Service support [phone], CC: Chaparrita Albrecht DO Em Physician: Signed 17-Sep-2013 Spirometry (67364) Result: 29-Aug-2013 Carotid Duplex Ultrasound Result: Comments: See Note; NOTES: [facility] Cardiovascular Services [address] [place] [address] Carotid Duplex Ultrasound 08/24/13 0939 MR#: [id number] Acct: [id number] Chalo e: CLARENCE ALBERT Rep #: [id number] : 1940 73 From: Anurag Loya MD Attending Dr: Chaparrita Albrecht DO Status: REG CLI Ordering Dr: Chaparrita Albrecht DO Date: 08/24/13 Location: [facility] Sex: F C Admitted: Rt. Velocities/BP [...] in the left bulb. Procedure Carotid Duplex 25524. Exam perfor med in department. Interpretation Summary Mild (<50%) stenosis right extracranial internal carotid. Mild (<50%) stenosis left extracranial internal carotid. Flow within the vertebra l arteries is antegrade bilaterally. Ordering Physician: Chaparrita Albrecht Performed By: Kendal Benton RVT : Chaparrita Albrecht DO Date Dictated: 08/24/13 0939 Date Transcribed: 08/29/13 1118 Em Physician: Signed Immunization Name Dates Details Influenza (3 years and up) on: 16-Jan-2008 Comments: Lot #: [id number] date: 09/10Amount given: 0.5 mlRoute: IMSite given: Left deltoidGiven by: Olivia Bell LPN Influenza (3 years and up) on: 09-Jan-2009 Comments: Lot #[id number]-left deltoidDose0.5mlgiven by Marycarmen Jorge LPN Pneumococcal (2 years and up) on: 29-Aug-2007 Comments: 0.5cc given im lt arm [id number] exp 02-13-08 Family History Unknown Family Member [...] kg/m2 Body Surface Area Calculated 1.76 m2 88-Thj-460153:39 Temperature 97.9 f Comments: Method: Temporal Pulse [...] copy of this report has been sent [phone].PATIENT WAS FASTINGPERFORMED BY: OutlineShore [facility] HospitalCjrmin0719 [facility] [id number] Alb/Creat Ratio 4475.5 {mg/g_creat} (Abnormal) Range: 0.0-30.0 Comments: Normal: 0.0 - 30.0 Albuminuria: 31.0 - 300.0 Clinical albuminuria: >300.0 Albumin, Urine 2085.6 ug/mL (Normal) Comments: Results confirmed ondilution. Creatinine, Urine 46.6 mg/dL (Normal) :33 CBC With Differential/Platelet Comments: A courtesy copy of this report has been sent [phone].PATIENT WAS FASTINGPERFORMED BY: OutlineSh[facility] HospitalIgvuxz6968 [facility] [id number] Information: ADD CBC Immature Grans (Abs) 0.0 [...] copy of this report has been sent [phone].PATIENT WAS FASTINGPERFORMED BY: Outline [facility] [id number] :33 Range: 1.6-2.3 :33 Microscopic Examination Comments: A courtesy copy of this report has been sent [phone].PATIENT WAS FASTINGPERFORMED BY: Outline [employer] [facility] [id number] Bacteria Few (Normal) Mucus Threads Present (Normal) Epithelial Cells (non 0-10 {/hpf} Range: 0 - 10 renal) (Normal) RBC 0-2 {/hpf} (Normal) Range: 0 - 2 WBC 0-5 {/hpf} (Normal) Range: 0 - 5 : PTH, Intact 29 pg/mL (Normal) Comments: A courtesy copy of this report has been sent [phone].PATIENT WAS FASTINGPERFORMED BY: Outline Vslczv5966 [facility] [id number] 33 Range: 15-65 :33 Renal Panel (10) Comments: A courtesy copy of this report has been sent [phone].PATIENT WAS FASTINGPERFORMED BY: [employer]line [employer] [facility] [id number] Phosphorus 4.0 mg/dL (Normal) Range: 2.5-4.5 :33 Vitamin D Hydroxy (73828) Comments: A courtesy copy of this report has been sent [phone].PATIENT WAS FASTINGPERFORMED BY: F[employer]pps Ipgigj4671 [facility] [id number] Vitamin D, 25-Hydroxy 36.8 ng/mL (Normal) Range: 30.0-100.0 Comments: Vitamin D deficiency has been defined by the [place] ofMedicine and an Endocrine Society practice guideline as alevel of serum 25-OH vitamin D less than 20 ng/mL (1,2).The Endocrine Society went on to further define vitamin Dinsufficiency as a level between 21 and 29 ng/mL (2).1. IOM ([place] of Medicine). 2010. Dietary reference intakes for calcium and D. [place]: The National Academies Press.2. Mira MF, Rosette LOPEZ, Tommy SWAIN, et al. Evaluation, treatment, and prevention of vitamin D deficiency: an Endocrine Society clinical practice guideline. JCEM. 2010; 96(7):1911-30. :33 URINALYSIS, W/ MICRO (63961) Comments: A courtesy copy of this report has been sent [phone].PATIENT WAS FASTINGPERFORMED BY: ZhongSou6370 [facility] [id number] Microscopic Examination See below: (Normal) Comments: Microscopic was indicated and was performed. Nitrite, Urine Negative (Normal) Urobilinogen,Semi-Qn 0.2 mg/dL (Normal) Range: 0.2-1.0 Bilirubin Negative (Normal) Occult Blood Negative (Normal) Ketones Negative (Normal) Glucose Negative (Normal) Protein 3+ (Abnormal) WBC Esterase Negative (Normal) Appearance Clear (Normal) Urine-Color Yellow (Normal) pH 5.5 (Normal) Range: 5.0-7.5 Specific Allison 1.012 (Normal) Range: 1.005-1.030 :33 LIPID PANEL (70140) Comments: A courtesy copy of this report has been sent [phone].PATIENT WAS FASTINGPERFORMED BY: ZhongSou6370 [facility] [id number] LDL/HDL Ratio 1.4 {ratio} (Normal) Range: 0.0-3.2 [...] copy of this report has been sent [phone].PATIENT WAS FASTINGPERFORMED BY: LabCoShore [facility] HospitalSqlghq8041 [facility] [id number] (50713) ALT (SGPT) 11 [iU]/L (Normal) Range: 0-32 [...] 8-27 Glucose 162 mg/dL (Abnormal) Range: 65-99 45-Cbp-240937:24 HgA1C , Office (63294) HgA1C , Office 6.5 % (Normal) Range: 4.6 - 7.1 :33 HGB A1C (20402) Comments: A courtesy copy of this report has been sent [phone].PATIENT WAS FASTINGPERFORMED BY: Hall [employer]6370 [facility]noteAt[facility] [id number] Hemoglobin A1c 6.3 % (Abnormal) Range: 4.8-5.6 Comments: . Prediabetes: 5.7 - 6.4 Diabetes: >6.4 Glycemic control for adults with diabetes: <7.0 :14 LIPID PANEL (48419) Comments: PATIENT WAS FASTINGPERFORMED BY: ZhongSou6370 [facility] [id number] LDL/HDL Ratio 1.1 {ratio} (Normal) Range: 0.0-3.2 [...] (Normal) Range: 100-199 :14 Vitamin D Hydroxy (16006) Comments: PATIENT WAS FASTINGPERFORMED BY: LabCo Wknezh9616 [facility] [id number] Vitamin D, 25-Hydroxy 37.8 ng/mL (Normal) Range: 30.0-100.0 Comments: Vitamin D deficiency has been defined by the [place] ofMedicine and an Endocrine Society practice guideline as alevel of serum 25-OH vitamin D less than 20 ng/mL (1,2).The Endocrine Society went on to further define vitamin Dinsufficiency as a level between 21 and 29 ng/mL (2).1. IOM ([place] of Medicine). 2010. Dietary reference intakes for calcium and D. [place]: The National Academies Press.2. Mira MF, Rosette LPOEZ, Tommy SWAIN, et al. Evaluation, treatment, and prevention of vitamin D deficiency: an Endocrine Society clinical practice guideline. JCEM. 2010; 96(7):1911-30. -:14 CBC with auto diff (67118) Comments: PATIENT WAS FASTINGPERFORMED BY: LabCoShore Memorial HospitalJdctux3796 [facility] [id number] Immature Grans (Abs) 0.0 {x10E3/uL} (Normal) Range: [...] PANEL, COMPREHENSIVE Comments: PATIENT WAS FASTINGPERFORMED BY: LabCoShore Memorial HospitalQhpzyi1035 [facility] [id number] (74131) ALT (SGPT) 10 [iU]/L (Normal) Range: 0-32 [...] Comments: PATIENT WAS FASTINGPERFORMED BY: LabSelect [facility]ty Hospital6370 [facility] [id number] (34843) AND (07717) Alb/Creat Ratio 4213.3 {mg/g_creat} (Abnormal) Range: 0.0-30.0 Albumin, Urine 3206.3 ug/mL (Normal) Comments: Results confirmed ondilution. Creatinine, Urine 76.1 mg/dL (Normal) :40 CBC & PLATELETS (AUTO) (32904) Comments: please fax to Dr. Austin- [phone]; PATIENT WAS FASTINGPERFORMED BY: FlippsShore Memorial HospitalCuyefh3854 [facility] [id number] Platelets 148 {x10E3/uL} (Abnormal) Range: 150-379 RDW [...] PANEL Comments: please fax to Dr. Austin- [phone]; PATIENT WAS FASTINGPERFORMED BY: OutlineShore Memorial HospitalYnsjar5911 [facility] [id number] Information: [id number] FX DR. SANTANA (90206) Albumin 3.1 g/dL (Abnormal) Range: 3.5-4.8 Phosphorus [...] 133 mg/dL (Abnormal) Range: 65-99 :40 MAGNESIUM (79201) Comments: please fax to Dr. Austin- [phone]; PATIENT WAS FASTINGPERFORMED BY: [facility] Uqpknm3812 [address] RoadDublin [place] [id number] Magnesium 1.9 mg/dL (Normal) Range: 1.6-2.3 :40 CALCIFEDIOL (26446) Comments: please fax to Dr. Austin- [phone]; PATIENT WAS FASTINGPERFORMED BY: [facility] Rdgtwl4730 Commerce RoadDublin [place] [id number] Vitamin D, 25-Hydroxy 29.4 ng/mL (Abnormal) Range: 30.0-100.0 Comments: Vitamin D deficiency has been defined by the [place] of[place]icine and an Endocrine Society practice guideline as alevel of serum 25-OH vitamin D less than 20 ng/mL (1,2).The Endocrine Society went on to further define vitamin Dinsufficiency as a level between 21 and 29 ng/mL (2).1. IOM ([place] of Medicine). 2010. Dietary reference intakes for calcium and D. [place]: The National Academies Press.2. Mira MF, Rosette NC, Tommy SWAIN, et al. Evaluation, treatment, and prevention of vitamin D deficiency: an Endocrine Society clinical practice guideline. JCEM. 2010; 96(7):1911-30. :40 PARATHORMONE (94043) Comments: please fax to Dr. Austin- [phone]; PATIENT WAS FASTINGPERFORMED BY: [facility] Teyivq2660 [address] RoadDublin [place] [id number] PTH, Intact 22 pg/mL (Normal) Range: 15-65 60-Whz-33738:30 COLON BIOPSY (CHOOSE See Note (Normal) Comments: [facility] Aslnownncc4710 [address] [place], [address] SITE) Comments: Patient: CLARENCE ALBERT : 1940 (77/F) Acct Num: [id number] Phys: Marcus Caldera Unit Num: [id number] Loc: LABSPEC Specimen: [id number] Received: 09/16/171528 Spec Type: Kendal MAURER TISSUES [...] one cassette. / MARCY:dustin 09/19/17 TC:1 CPT: 99667 x2 HEADER OPERATION: Colonoscopy PRE-OP DIAGNOSIS: History of polyps TISSUE SUBMITTED: A Proximal sigmoid polyp, rule out adenoma, B Transversecolon, rule out adenoma MICROSCOPIC DESCRIPTION Slides are reviewed. M ICROSCOPIC DIAGNOSIS A. Proximal sigmoid polyp, biopsy: Fragments of tubular adenoma. B. Transverse colon polyp, biopsy: Fragments of tubular adenoma. SJ:dustin 09/20/17 Signed _ Nacho Ardon 09/20/17 <signature on file> 74-Zud-99426:24 METABOLIC PANEL, COMPREHENSIVE Comments: PATIENT NOT FASTINGPERFORMED BY: [facility] Imeihz7337 [facility] [id number] (97292) ALT (SGPT) 14 [iU]/L (Normal) Range: 0-32 [...] (Abnormal) Range: 65-99 :07 HgA1C , Office (69393) HgA1C , Office 7.2 % (Abnormal) Range: 4.6 - 7.1 :37 Clostridium difficile Toxin Comments: PATIENT NOT FASTINGPERFORMED BY: Flipps [employer] [facility] [id number] A+B, EIA (96347) C difficile Toxins A+B, EIA Negative (Normal) :37 LEUKOCYTE COUNT, FECAL (74731) Comments: PATIENT NOT FASTINGPERFORMED BY: Flipps [employer] [facility] [id number] Result 1 NWBC (Normal) Comments: No white blood cells seen. White Blood Cells (WBC), Final report (Normal) Stool :37 OVA & PARASITE DIR SMEAR Comments: PATIENT NOT FASTINGPERFORMED BY: Flipps [employer] [facility] [id number] (67744) Result 1 NOCP (Normal) Comments: No ova, cysts, or parasites seen. Ova + Parasite Exam Final report (Normal) Comments: These results were obtained using wet preparation(s) and trichromestained smear. This test does not include testing for Cryptosporidiumparvum, Cyclospora, or Microsporidia. :37 SETH CULTURE-STOOL (35197) Comments: PATIENT NOT FASTINGPERFORMED BY: Flipps Xtidly[address] [facility] [id number] Information: SRC:ST SRC:ST E coli Shiga Toxin EIA Negative (Normal) Result 1 NCI (Normal) Comments: No Campylobacter species isolated. Campylobacter Culture Final report (Normal) Result 1 NSS (Normal) Comments: No Salmonella or Shigella recovered. Salmonella/Shigella Screen Final report (Normal) :06 Renal function Panel Comments: fax copy to Dr. Santana [phone]; A courtesy copy of this report has been sent [phone].PATIENT NOT FASTINGPERFORMED BY: Flipps Nireyj[address] [employer] [id number] Information: NURSE DRAW (97227) Albumin 3.5 g/dL (Normal) Range: 3.5-4.8 Phosphorus [...] copy of this report has been sent [phone].PATIENT NOT FASTINGPERFORMED BY: Outline Prwydf0621 [facility] [id number] :02 Range: 15-65 Vitamin D, 25-Hydroxy 34.7 ng/mL (Normal) Comments: A courtesy copy of this report has been sent [phone].PATIENT NOT FASTINGPERFORMED BY: Flipps Rogycx7062 [facility] [id number] :02 Range: 30.0-100.0 Comments: Vitamin D deficiency has been defined by the [place] of[place]icine and an Endocrine Society practice guideline as alevel of serum 25-OH vitamin D less than 20 ng/mL (1,2).The Endocrine Society went on to further define vitamin Dinsufficiency as a level between 21 and 29 ng/mL (2).1. IOM ([place] of Medicine). 2010. Dietary reference intakes for calcium and D. [place]: The National Academies Press.2. Mira MF, Rosette LOPEZ, Tommy SWAIN, et al. Evaluation, treatment, and prevention of vitamin D deficiency: an Endocrine Society clinical practice guideline. JCEM. 2010; 96(7):1911-30. 7-Fob-288362:02 MICROALBUMIN: CREATININE RATIO Comments: send results to Dr. Santana fax: [phone]; A courtesy copy of this report has been sent [phone].PATIENT NOT FASTINGPERFORMED BY: ZhongSou[address] [facility] [id number] (79933) AND (77365) Alb/Creat Ratio 4191.2 {mg/g_creat} (Abnormal) Range: 0.0-30.0 Albumin, Urine 2380.6 ug/mL (Normal) Comments: Results confirmed ondilution. Creatinine, Urine 56.8 mg/dL (Normal) :02 CBC, PLATELETS & MANUAL Comments: send results to Dr. Santana fax: [phone]; A courtesy copy of this report has been sent [phone].PATIENT NOT FASTINGPERFORMED BY: Flipps Uagozr7365 [facility] [id number] Information: VIT D25, PTH DIFF (67041) Immature Grans (Abs) 0.0 {x10E3/uL} (Normal) Range: [...] 3.77-5.28 WBC 5.4 {x10E3/uL} (Normal) Range: 3.4-10.8 7-Uae-576352:02 MAGNESIUM (46603) Comments: send results to Dr. Santana fax: [phone]; A courtesy copy of this report has been sent [phone].PATIENT NOT FASTINGPERFORMED BY: [facility] Cjsddw3413 [facility] [id number] Magnesium, Serum 1.8 mg/dL (Normal) Range: 1.6-2.3 6-Tsd-176136:02 RENAL FUNCTION PANEL (54897) Comments: send results to Dr. Santana fax: [phone]; A courtesy copy of this report has been sent [phone].PATIENT NOT FASTINGPERFORMED BY: Outline Ekhawe0714 [facility] [id number] Albumin, Serum 3.7 g/dL (Normal) Range: 3.5-4.8 [...] Glucose, Serum 119 mg/dL (Abnormal) Range: 65-99 2-Azj-342852:07 LIPID PANEL (72996) Comments: PATIENT WAS FASTINGPERFORMED BY: Hassle.comlin6370 [facility] [id number] LDL/HDL Ratio 1.4 {ratio} (Normal) Range: 0.0-3.2 Comments: LDL/HDL Ratio Men Women 1/2 Avg.Risk 1.0 1.5 Av g.Risk 3.6 3.2 2X Avg.Risk 6.2 5.0 3X Avg.Risk 8.0 6.1 LDL Cholesterol Calc 102 mg/dL (Abnormal) Range: 0-99 VLDL Cholesterol Cesar 17 mg/dL (Normal) Range: 5-40 HDL Cholesterol 75 mg/dL (Normal) Triglycerides 84 mg/dL (Normal) Range: 0-149 Cholesterol, Total 194 mg/dL (Normal) Range: 100-199 7-Gpk-844658:07 CBC W/AUTO DIFF WBC (65203) Comments: PATIENT WAS FASTINGPERFORMED BY: [employer] Nneooa8386 [facility] [id number] Immature Grans (Abs) 0.0 {x10E3/uL} (Normal) Range: [...] 3.77-5.28 WBC 4.8 {x10E3/uL} (Normal) Range: 3.4-10.8 6-Gtn-822257:07 METABOLIC PANEL, COMPREHENSIVE Comments: PATIENT WAS FASTINGPERFORMED BY: LabCoShore Memorial HospitalVjakcb7028 [facility] [id number] (56197) ALT (SGPT) 14 [iU]/L (Normal) Range: 0-32 [...] 8-27 Glucose 158 mg/dL (Abnormal) Range: 65-99 2-Dni-123517:07 VITAMIN B-12 (CYANOCOBALAMIN) Comments: PATIENT WAS FASTINGPERFORMED BY: LabCoSh[facility] HospitalKjidtv9329 [facility] [id number] (24006) Vitamin B12 771 pg/mL (Normal) Range: 232-1245 13-May-20170:00 CDIFF (Molecular) Comments: [facility] Aulwghqcoz[address] [place], [place], [address] CDIFF See Note (Normal) Comments: Cdiff-MolecularNormal Reference Range = Negative C. Diff DNA Negative- No toxigenic C. Diff DNA DetectedNAAT METHOD Testing was performed using nucleic acid amplification 05-May-20179:32 Rapid Flu (02396 x 2) Influenza A Ag Negative (Normal) :35 CBC with auto diff (90979) Comments: PATIENT WAS FASTINGPERFORMED BY: [facility]CoSh[facility] HospitalVqrhto8340 [facility] [id number] Immature Grans (Abs) 0.0 {x10E3/uL} (Normal) Range: [...] PANEL, COMPREHENSIVE Comments: PATIENT WAS FASTINGPERFORMED BY: [facility]Co[facility] HospitalPjemow1526 [facility] [id number] (49166) ALT (SGPT) 16 [iU]/L (Normal) Range: 0-32 [...] Glucose, Serum 145 mg/dL (Abnormal) Range: 65-99 62-Cyz-577025:51 HgA1C , Office (71395) HgA1C , Office 6.7 % (Normal) Range: 4.6 - 7.1 8-Akf-274457:50 CALCIFEDIOL (05352) Comments: A courtesy copy of this report has been sent [phone].PATIENT WAS FASTINGPERFORMED BY: [facility]6370 [facility] [id number] Vitamin D, 25-Hydroxy 40.7 ng/mL (Normal) Range: 30.0-100.0 Comments: Vitamin D deficiency has been defined by the [place] of[place]icine and an Endocrine Society practice guideline as alevel of serum 25-OH vitamin D less than 20 ng/mL (1,2).The Endocrine Society went on to further define vitamin Dinsufficiency as a level between 21 and 29 ng/mL (2).1. IOM ([place] of Medicine). 2010. Dietary reference intakes for calcium and D. [place]: The National Academies Press.2. Mira MF, Rosette [place], Tommy SWAIN, et al. Evaluation, treatment, and prevention of vitamin D deficiency: an Endocrine Society clinical practice guideline. JCEM. 2010; 96(7):1911-30. 0-Yaw-488121:50 PTH (PARATHORMONE) (54013) Comments: A courtesy copy of this report has been sent [phone].PATIENT WAS FASTINGPERFORMED BY: Diamond Mind70 irisnoteAtrium Health Mercy [id number] PTH, Intact 20 pg/mL (Normal) Range: 15-65 0-Ymd-048084:50 MICROALBUMIN: CREATININE RATIO Comments: A courtesy copy of this report has been sent [phone].PATIENT WAS FASTINGPERFORMED BY: [employer]70 irisnoteAtrium Health Mercy [id number] (53854) AND (43383) Microalb/Creat Ratio 4376.0 {mg/g_creat} (Abnormal) Range: 0.0-30.0 Microalbumin, Urine 3369.5 ug/mL (Normal) Comments: Results confirmed ondilution. Creatinine, Urine 77.0 mg/dL (Normal) 8-Xzj-951987:50 Renal function Panel Comments: A courtesy copy of this report has been sent [phone].PATIENT WAS FASTINGPERFORMED BY: Flipps Obghkd[address] [facility] [id number] Information: SARA SANTANA [phone] (95565) Albumin, Serum 3.8 g/dL (Normal) Range: 3.5-4.8 [...] Glucose, Serum 203 mg/dL (Abnormal) Range: 65-99 6-Mqm-221663:50 Magnesium (70448) Comments: A courtesy copy of this report has been sent [phone].PATIENT WAS FASTINGPERFORMED BY: WeVorceSelect Specialty Hospital6370 [facility] [id number] Magnesium, Serum 1.8 mg/dL (Normal) Range: 1.6-2.3 :53 CBC with auto diff (85442) Comments: A courtesy copy of this report has been sent [phone].PATIENT WAS FASTINGPERFORMED BY: OutlineShore Memorial HospitalMsjdxf8442 [facility] [id number] Immature Grans (Abs) 0.0 {x10E3/uL} (Normal) Range: [...] {x10E3/uL} (Normal) Range: 3.4-10.8 :53 LIPID PANEL (64581) Comments: A courtesy copy of this report has been sent [phone].PATIENT WAS FASTINGPERFORMED BY: ASSURED INFORMATION SECURITY Lpokty4378 [facility] [id number] LDL/HDL Ratio 1.2 {ratio_units} (Normal) Range: 0.0-3.2 [...] copy of this report has been sent [phone].PATIENT WAS FASTINGPERFORMED BY: FlippsShore Memorial HospitalXqkzvm7335 [facility] [id number] (46053) ALT (SGPT) 11 [iU]/L (Normal) Range: 0-32 [...] Glucose, Serum 205 mg/dL (Abnormal) Range: 65-99 06-Efx-254540:57 HgA1C , Office (37593) HgA1C , Office 7.1 % (Normal) Range: 4.6 - 7.1 :09 LIPID PANEL (31588) Comments: PATIENT WAS FASTINGPERFORMED BY: [employer] [facility] [id number] LDL/HDL Ratio 1.3 {ratio_units} (Normal) Range: 0.0-3.2 [...] PANEL, COMPREHENSIVE Comments: PATIENT WAS FASTINGPERFORMED BY: Archipelago LearningAtrium Health Mercy [id number] (81015) ALT (SGPT) 12 [iU]/L (Normal) Range: 0-32 [...] Glucose, Serum 152 mg/dL (Abnormal) Range: 65-99 0-Bnl-402173:50 HgA1C , Office (23886) HgA1C , Office 6.7 % (Normal) Range: 4.6 - 7.1 :25 Magnesium, Serum 1.9 mg/dL (Normal) Comments: PATIENT WAS FASTINGPERFORMED BY: EVE OutlineShore Memorial HospitalYmlaco5410 [facility] [id number] Range: 1.6-2.3 :25 Microalb/Creat Ratio, [facility] Comments: PATIENT WAS FASTINGPERFORMED BY: OutlineCHRISTUS St. Vincent Regional Medical CenterHxnuvl7484 [facility] [id number] Microalb/Creat Ratio 2652.0 {mg/g_creat} Range: 0.0-30.0 (Abnormal) Microalbumin, Urine 2482.3 ug/mL (Normal) Comments: Results confirmed ondilution. Creatinine, Urine 93.6 mg/dL (Normal) PTH, Intact 26 pg/mL (Normal) Comments: PATIENT WAS FASTINGPERFORMED BY: [facility] Tmnsyy6665 [address] RoadDublin [place] [id number] :25 Range: 15-65 :25 Renal Panel (10) Comments: PATIENT WAS FASTINGPERFORMED BY: [facility] Cvghpu5029 [address] [facility] [place] [id number] Phosphorus, Serum 4.3 mg/dL (Normal) Range: 2.5-4.5 :25 Thyroxine (T4) Free, Direct, S Comments: PATIENT WAS FASTINGPERFORMED BY: WeVorceResearch Medical Center Ldktng9173 [address] [facility] [place] [id number] T4,Free(Direct) 1.08 ng/dL (Normal) Range: 0.82-1.77 : TSH 2.980 {uIU/mL} Comments: PATIENT WAS FASTINGPERFORMED BY: [facility] Ywgoon4183 [address] RoadDublin [place] [id number] 25 (Normal) Range: 0.450-4.500 : Vitamin D, 25-Hydroxy 37.1 ng/mL (Normal) Comments: PATIENT WAS FASTINGPERFORMED BY: [facility] Jddnla5603 [address] RoadDublin [place] [id number] 25 Range: 30.0-100.0 Comments: Vitamin D deficiency has been defined by the [place] of[place]icine and an Endocrine Society practice guideline as alevel of serum 25-OH vitamin D less than 20 ng/mL (1,2).The Endocrine Society went on to further define vitamin Dinsufficiency as a level between 21 and 29 ng/mL (2).1. IOM ([place] of [employer]). 2010. Dietary reference intakes for calcium and D. [place]: The National Academies Press.2. Mira MF, Rosette LOPEZ, Tommy SWAIN, et al. Evaluation, treatment, and prevention of vitamin D deficiency: an Endocrine Society clinical practice guideline. JCEM. 2010; 96(7):1911-30. :25 CBC W/AUTO DIFF WBC (90062) Comments: PATIENT WAS FASTINGPERFORMED BY: [place]70 irisnoteAtrium Health Mercy [id number] Immature Grans (Abs) 0.0 {x10E3/uL} (Normal) Range: [...] PANEL, COMPREHENSIVE Comments: PATIENT WAS FASTINGPERFORMED BY: Outline Gsrknv6345 [facility]byAl[facility] [id number]; non- emergent till apt (41495) ALT (SGPT) 10 [iU]/L (Normal) Range: 0-32 [...] mg/dL (Abnormal) Range: 65-99 03-Aug-20169:25 LIPID PANEL (80033) Comments: PATIENT WAS FASTINGPERFORMED BY: [facility] Eybmlg3739 [facility] [id number] LDL/HDL Ratio 0.9 {ratio_units} (Normal) Range: 0.0-3.2 [...] (Normal) Range: 100-199 :54 HgA1C , Office (28742) HgA1C , Office 6.6 % (Normal) Range: 4.6 - 7.1 :1 Magnesium, Serum 2.1 mg/dL (Normal) Comments: PATIENT WAS FASTINGPERFORMED BY: Archipelago LearningAtrium Health Mercy [id number] 2 Range: 1.6-2.3 :12 Microalb/Creat Ratio, Randm Ur Comments: PATIENT WAS FASTINGPERFORMED BY: Archipelago LearningAtrium Health Mercy [id number] Microalb/Creat Ratio 1863.4 {mg/g_creat} (Abnormal) Range: 0.0-30.0 Microalbumin, Urine 1416.2 ug/mL (Normal) Comments: Results confirmed ondilution. Creatinine, Urine 76.0 mg/dL (Normal) :12 Microscopic Examination Comments: PATIENT WAS FASTINGPERFORMED BY: Archipelago LearningAtrium Health Mercy [id number] Bacteria None seen (Normal) Mucus Threads Present (Normal) Cast Type Hyaline casts (Normal) Casts Present {/lpf} (Abnormal) Epithelial Cells (non 0-10 {/hpf} Range: 0 - 10 renal) (Normal) RBC 3-10 {/hpf} Range: 0 - 2 (Abnormal) WBC 6-10 {/hpf} Range: 0 - 5 (Abnormal) PTH, Intact 36 pg/mL (Normal) Comments: PATIENT WAS FASTINGPERFORMED BY: Archipelago LearningAtrium Health [facility]cy [id number] 0:12 Range: 15-65 Vitamin D, 25-Hydroxy 42.9 ng/mL (Normal) Comments: PATIENT WAS FASTINGPERFORMED BY: Archipelago LearningAtrium Health [facility]cy [id number] 0:12 Range: 30.0-100.0 Comments: Vitamin D deficiency has been defined by the [place] of[place]icine and an Endocrine Society practice guideline as alevel of serum 25-OH vitamin D less than 20 ng/mL (1,2).The Endocrine Society went on to further define vitamin Dinsufficiency as a level between 21 and 29 ng/mL (2).1. IOM ([place] of [place]). 2010. Dietary reference intakes for calcium and D. [place]: The National Academies Press.2. Mira MF, Rosette LOPEZ, Tommy SWAIN, et al. Evaluation, treatment, and prevention of vitamin D deficiency: an Endocrine Society clinical practice guideline. JCEM. 2010; 96(7):1911-30. 65-Fcj-461043:12 URINALYSIS, W/ MICRO (93152) Comments: PATIENT WAS FASTINGPERFORMED BY: Imagekind ID [id number] Microscopic Examination See below: (Normal) Comments: Microscopic was indicated and was performed. Nitrite, Urine Negative (Normal) Urobilinogen,Semi-Qn 0.2 mg/dL (Normal) Range: 0.2-1.0 Bilirubin Negative (Normal) Occult Blood Negative (Normal) Ketones Negative (Normal) Glucose Negative (Normal) Protein 4+ (Abnormal) WBC Esterase Trace (Abnormal) Appearance Clear (Normal) Urine-Color Yellow (Normal) pH 6.0 (Normal) Range: 5.0-7.5 Specific Allison 1.015 (Normal) Range: 1.005-1.030 75-Pnp-746144:12 CBC W/AUTO DIFF WBC (60692) Comments: PATIENT WAS FASTINGPERFORMED BY: Hall LabCoYi Chang Ou Sai IT70 irisnoteblin ID [id number] Immature Grans (Abs) 0.0 {x10E3/uL} (Normal) Range: [...] 3.77-5.28 WBC 6.2 {x10E3/uL} (Normal) Range: 3.4-10.8 44-Tsd-533243:12 METABOLIC PANEL, COMPREHENSIVE Comments: PATIENT WAS FASTINGPERFORMED BY: LabCoShore Memorial HospitalEhshai0995 [facility] [id number] (66845) ALT (SGPT) 14 [iU]/L (Normal) Range: 0-32 [...] Glucose, Serum 154 mg/dL (Abnormal) Range: 65-99 50-Tlu-684768:12 LIPID PANEL (39888) Comments: PATIENT WAS FASTINGPERFORMED BY: Archipelago LearningAtrium Health Mercy [id number] LDL/HDL Ratio 0.7 {ratio_units} (Normal) Range: 0.0-3.2 Comments: LDL/HDL Ratio Men Women 1/2 Avg.Risk 1.0 1.5 Av g.Risk 3.6 3.2 2X Avg.Risk 6.2 5.0 3X Avg.Risk 8.0 6.1 LDL Cholesterol Calc 49 mg/dL (Normal) Range: 0-99 VLDL Cholesterol Cesar 14 mg/dL (Normal) Range: 5-40 HDL Cholesterol 75 mg/dL (Normal) Triglycerides 68 mg/dL (Normal) Range: 0-149 Cholesterol, Total 138 mg/dL (Normal) Range: 100-199 14-Tyb-408437:50 HgA1C , Office (80577) HgA1C , Office 6.7 % (Normal) Range: 4.6 - 7.1 77-Zwn-820564:36 VITAMIN B-12 (CYANOCOBALAMIN) Comments: PATIENT WAS FASTINGPERFORMED BY: [facility]Martin [facility] [id number] (71936) Vitamin B12 802 pg/mL (Normal) Range: 211-946 74-Owc-521498:36 LIPID PANEL (27164) Comments: PATIENT WAS FASTINGPERFORMED BY: Archipelago LearningAtrium Health Mercy [id number] LDL/HDL Ratio 0.8 {ratio_units} (Normal) Range: 0.0-3.2 [...] Cholesterol, Total 161 mg/dL (Normal) Range: 100-199 97-Nzr-909287:36 LDH (LD) (LACTATE DEHYDROGENASE) Comments: PATIENT WAS FASTINGPERFORMED BY: Outline Vrqpdz4738 [facility] [id number] (80331) LDH 217 [iU]/L (Normal) Range: 119-226 27-Mnt-568960:36 CBC W/AUTO DIFF WBC (10225) Comments: PATIENT WAS FASTINGPERFORMED BY: Flipps Slyaao9686 [facility] [id number] Immature Grans (Abs) 0.0 {x10E3/uL} (Normal) Range: [...] 3.77-5.28 WBC 10.6 {x10E3/uL} (Normal) Range: 3.4-10.8 72-Kcq-361839:36 METABOLIC PANEL, COMPREHENSIVE Comments: PATIENT WAS FASTINGPERFORMED BY: LabCoShore Memorial HospitalQsxplz9049 [facility] [id number] (08100) ALT (SGPT) 15 [iU]/L (Normal) Range: 0-32 [...] Glucose, Serum 137 mg/dL (Abnormal) Range: 65-99 57-Lat-323507:36 TSH (97271) Comments: PATIENT WAS FASTINGPERFORMED BY: ZhongSou6370 [facility] [id number] TSH 0.560 {uIU/mL} (Normal) Range: 0.450-4.500 :02 Renal function Panel (41331) Comments: PATIENT WAS FASTINGPERFORMED BY: ZhongSou6370 [facility] [id number] Albumin, Serum 3.7 g/dL (Normal) Range: 3.5-4.8 [...] 137 mg/dL (Abnormal) Range: 65-99 :02 MAGNESIUM (19971) Comments: PATIENT WAS FASTINGPERFORMED BY: [facility]6370 [facility] [id number] Magnesium, Serum 2.2 mg/dL (Normal) Range: 1.6-2.3 :02 MICROALBUMIN: CREATININE RATIO Comments: PATIENT WAS FASTINGPERFORMED BY: LabSelect [facility] Hospital6370 [facility] [id number] (05698) AND (01687) Microalb/Creat Ratio 2038.7 {mg/g_creat} (Abnormal) Range: 0.0-30.0 Microalbumin, Urine 1223.2 ug/mL (Normal) Comments: Results confirmed ondilution. Creatinine, Urine 60.0 mg/dL (Normal) :02 CBC WITH MANUAL DIFF Comments: PATIENT WAS FASTINGPERFORMED BY: [facility]6370 [facility] [id number] Information: [id number] CC:[id number] (10119) Immature Grans (Abs) 0.0 {x10E3/uL} (Normal) Range: [...] {x10E3/uL} (Normal) Range: 3.4-10.8 :02 HGB A1C (82825) Comments: PATIENT WAS FASTINGPERFORMED BY: ASSURED INFORMATION SECURITY Lwuyoy2452 [facility] [id number] Hemoglobin A1c 6.4 % (Abnormal) Range: 4.8-5.6 Comments: . Pre-diabetes: 5.7 - 6.4 Diabetes: >6.4 Glycemic control for adults with diabetes: <7.0 :02 Lipid Panel (15739) Comments: PATIENT WAS FASTINGPERFORMED BY: ASSURED INFORMATION SECURITY Jqomez2649 [facility] [id number] LDL/HDL Ratio 1.1 {ratio_units} (Normal) Range: 0.0-3.2 [...] (Normal) Range: 100-199 :03 HgA1C , Office (18597) HgA1C , Office 6.1 % (Normal) Range: 4.6 - 7.1 :24 CBC W/AUTO DIFF WBC Comments: PATIENT WAS FASTINGPERFORMED BY: LabCoShore Memorial HospitalKddtlr8629 [facility] [id number] Information: [id number] (15623) Immature Grans (Abs) 0.0 {x10E3/uL} (Normal) Range: [...] CREATININE RATIO Comments: PATIENT WAS FASTINGPERFORMED BY: LabCoShore Memorial HospitalBpfqpu8034 [facility] [id number] (60034) AND (14379) Microalb/Creat Ratio 1223.8 {mg/g_creat} (Abnormal) Range: 0.0-30.0 Microalbumin, Urine 1012.1 ug/mL (Abnormal) Range: 0.0-17.0 Comments: Results confirmed ondilution. Creatinine, Urine 82.7 mg/dL (Normal) Range: 15.0-278.0 :24 METABOLIC PANEL, COMPREHENSIVE Comments: PATIENT WAS FASTINGPERFORMED BY: [employer] [facility] [id number] (69683) ALT (SGPT) 12 [iU]/L (Normal) Range: 0-32 [...] mg/dL (Abnormal) Range: 65-99 :24 LIPID PANEL (21830) Comments: PATIENT WAS FASTINGPERFORMED BY: Archipelago LearningAt[facility] Health [facility]cy [id number] LDL/HDL Ratio 1.1 {ratio_units} (Normal) Range: 0.0-3.2 [...] Cholesterol, Total 150 mg/dL (Normal) Range: 100-199 33-Wut-61887:30 CBC W/Diff, Automated Comments: [facility] Bwwwidfele[address] [place], [address] Absolute Lymph 0.83 {X10_3/ul} (Normal) Range: 0.83-4.51 [...] (Normal) Range: 4.4-11.0 :30 Hemoglobin A1c Comments: [facility] Ofnayqoofx[address] [place], [place], [address] HGB A1C 6.1 % (Normal) Range: 4.2-6.3 70-Tol-81654:30 Magnesium Comments: [facility] Necepactuj5748 [address] [place], [place], [id number] MG 1.8 mg/dL (Normal) Range: 1.8-2.4 :30 Protein+Creatinine Ratio,Urine Comments: [facility] Qvzbnioaob9937 [address] [place], [place], [id number] PROT:CRE RATIO 2121 {mg/g_CRE} (Abnormal) Range: 0-200 PROTEIN,UR.RAN. 164.2 mg/dL (Abnormal) UR CREAT 77.40 mg/dL (Normal) :30 Renal Profile Comments: [facility] Znrryeutpm6884 [address] Rodriguez [place], [place], [address] CO2 27.0 mmol/L (Normal) Range: 21.0-32.0 CL [...] 126 mg/dLsuggests DIABETES MELLITUS per A.D.A. criteria. 89-Jbi-68866:00 24 HR UR Creatinine Clearance Comments: [facility] Cijbbjtdkp3[address] [place], [place], [address] CREAT CLEARANCE 24 ml/min (Abnormal) Range: 100-200 URINE CREAT 20.6 mg/dL (Normal) EST GFR - AA 38 mL/min (Abnormal) Comments: GFR Calc EST GFR 31 mL/min (Abnormal) Comments: Non- GFR Calc SERUM CREAT 1.7 mg/dL (Abnormal) Range: 0.6-1.0 UR TOTAL VOLUME 2800 mL (Normal) UR COLLECT TIME 24.0 {HOURS} (Normal) 01-Rla-49217:00 Protein, Urine 24HR Comments: [facility] Opjlnsldua7[address] [place], [place], [id number] 24hr UR PROTEIN 1178.8 {mg/24HR} (Abnormal) URINE PROTEIN 42.1 mg/dL (Abnormal) UR TOTAL VOLUME 2800 mL (Normal) UR COLLECT TIME 24.0 {HOURS} (Normal) 7-Zub-847923:29 Metabolic Panel, Basic Comments: PATIENT NOT FASTINGPERFORMED BY: [facility]CoShore [facility] HospitalDlmzen5578 [facility] [id number] Information: [id number] (37233) Calcium, Serum 9.3 mg/dL (Normal) Range: 8.7-10.3 [...] Basic Comments: tuesday; PATIENT NOT FASTINGPERFORMED BY: [employer] [facility] [id number] Information: [id number] (11499) Calcium, Serum 9.0 mg/dL (Normal) Range: 8.7-10.3 [...] Glucose, Serum 149 mg/dL (Abnormal) Range: 65-99 92-Tks-964771:32 HgA1C , Office (40109) HgA1C , Office 6.2 % (Normal) Range: 4.6 - 7.1 :31 Rapid Strep Test, Office (79834) Comments: neg Rapid Strep Test, Office Negative (Normal) :06 THROAT CULTURE (33727) Comments: PATIENT NOT FASTINGPERFORMED BY: WeVorceSac-Os[facility] HospitalMfukis5899 [facility] [id number] Information: [id number] Result 1 RRF (Normal) Comments: Routine respiratory luis Upper Respiratory Culture Final report (Normal) :52 TSH (80942) Comments: PATIENT WAS FASTINGPERFORMED BY: [facility] Hospital6370 [facility] [id number] TSH 2.190 {uIU/mL} (Normal) Range: 0.450-4.500 :52 Vitamin D Hydroxy (91813) Comments: PATIENT WAS FASTINGPERFORMED BY: [facility]CoSh[facility] HospitalKgwoyd0572 [facility] [id number] Vitamin D, 25-Hydroxy 43.8 ng/mL (Normal) Range: 30.0-100.0 Comments: Vitamin D deficiency has been defined by the [place] ofMedicine and an Endocrine Society practice guideline as alevel of serum 25-OH vitamin D less than 20 ng/mL (1,2).The Endocrine Society went on to further define vitamin Dinsufficiency as a level between 21 and 29 ng/mL (2).1. IOM ([place] of Medicine). 2010. Dietary reference intakes for calcium and D. [place]: The National Academies Press.2. Mira MF, Rosette [place], Tommy SWAIN, et al. Evaluation, treatment, and prevention of vitamin D deficiency: an Endocrine Society clinical practice guideline. JCEM. 2010; 96(7):1911-30. :52 LIPID PANEL (98391) Comments: PATIENT WAS FASTINGPERFORMED BY: [facility]CoSh[facility] HospitalKqezuk3221 [facility] [id number] LDL/HDL Ratio 1.3 {ratio_units} (Normal) Range: 0.0-3.2 [...] auto diff Comments: PATIENT WAS FASTINGPERFORMED BY: [facility]6370 [facility] [id number] Information: [id number] (95342) Immature Grans (Abs) 0.0 {x10E3/uL} (Normal) Range: [...] PANEL, COMPREHENSIVE Comments: PATIENT WAS FASTINGPERFORMED BY: [facility] HospitalCoSh[facility] HospitalPdewzv6430 [facility] [id number] (51750) ALT (SGPT) 19 [iU]/L (Normal) Range: 0-32 [...] Glucose, Serum 127 mg/dL (Abnormal) Range: 65-99 7-Dlb-131681:08 HgA1C , Office (72719) HgA1C , Office 6.4 % (Normal) Range: 4.6 - 7.1 4-Yeb-237043:00 Creatinine Clearance Comments: PATIENT NOT FASTINGPERFORMED BY: [facility] Xivxxt5881 [facility] [id number] Information: [id number] S TART Creatinine Clearance 33 mL/min (Abnormal) Range: 88-128 Comments: The above range is based on 1.73 square meter average body surfacearea. Creatinine, Ur 24hr 642.0 {mg/24_hr} (Abnormal) Range: 800.0-1800.0 Creatinine, Urine 34.7 mg/dL (Normal) Range: 15.0-278.0 eGFR If Africn Am 43 mL/min/1.73 (Abnormal) eGFR If NonAfricn Am 37 mL/min/1.73 (Abnormal) Creatinine, Serum 1.37 mg/dL (Abnormal) Range: 0.57-1.00 1-Kom-833193:00 Protein Total, Qn, 24-Hr Comments: PATIENT NOT FASTINGPERFORMED BY: [facility] Sgmqiz8388 [facility] [id number] Urine Prot,24hr calculated 1309.8 {mg/24_hr} (Abnormal) Range: 30.0-150.0 Protein,Total,Urine 70.8 mg/dL (Abnormal) Range: 0.0-15.0 :01 CBC W/Diff, Automated Comments: Test performed at:[facility] Shfwmqyapo5749 [address] [place], [place] [address] Absolute Neut 3.1 {X10_3/uL} (Normal) Range: 2.0-7.7 [...] Range: 4.4-11.0 :01 Magnesium Comments: Test performed at:[facility] [address] [place] [address] MG 2.0 mg/dL (Normal) Range: 1.8-2.4 :01 Protein+Creatinine Ratio,Urine Comments: Test performed at:[facility] F[address] [place] [address] PROT:CRE RATIO 2232 {mg/g_CRE} (Abnormal) Range: 0-200 PROTEIN,UR.RAN. 160.3 mg/dL (Abnormal) UR CREAT 71.8 mg/dL (Normal) :01 Renal Profile Comments: Test performed at:[facility] [address] [place] [address] CO2 32.0 mmol/L (Normal) Range: 21.0-32.0 CL [...] mg/dL (Normal) Range: 70-110 :08 LIPID PANEL (27545) Comments: PATIENT WAS FASTINGPERFORMED BY: LabCoSh[facility] HospitalEwmpcn5525 [facility] [id number] LDL/HDL Ratio 1.0 {ratio_units} (Normal) Range: 0.0-3.2 [...] Cholesterol, Total 149 mg/dL (Normal) Range: 100-199 74-Sbp-94014:08 METABOLIC PANEL, Comments: PATIENT WAS FASTINGPERFORMED BY: LabCoSh[facility] Memorial HospitalBnidmn0763 [facility] [id number] Information: [id number] COMPREHENSIVE (29640) ALT (SGPT) 29 [iU]/L (Normal) Range: 0-32 [...] (Abnormal) Range: 65-99 :59 HgA1C , Office (15539) HgA1C , Office 6.5 % (Normal) Range: 4.6 - 7.1 :54 CBC W/AUTO DIFF WBC Comments: PATIENT WAS FASTINGPERFORMED BY: [facility]6370 [facility] [id number] Information: [id number] (55106) Immature Grans (Abs) 0.0 {x10E3/uL} (Normal) Range: [...] COMPREHENSIVE Comments: PATIENT WAS FASTINGPERFORMED BY: EVE Blacklane70 [facility] [id number]; non- emergent till apt (05754) ALT (SGPT) 13 [iU]/L (Normal) Range: 0-32 [...] mg/dL (Abnormal) Range: 65-99 :54 LIPID PANEL (00106) Comments: PATIENT WAS FASTINGPERFORMED BY: Air[employer]6370 [facility] [id number] LDL/HDL Ratio 1.1 {ratio_units} (Normal) Range: 0.0-3.2 [...] (Normal) Range: 100-199 :29 HgA1C , Office (73606) HgA1C , Office 6.6 % (Normal) Range: 4.6 - 7.1 :12 CBC W/Diff, Automated Comments: Test performed at:[facility] Eayyzfsrxo7[address] [place] [address] ; handled by Dr. Santana Absolute Lymph [...] Range: 4.4-11.0 :12 Magnesium Comments: Test performed at:[facility] G[address] [place] [address]681 MG 2.0 mg/dL (Normal) Range: 1.8-2.4 :12 Microalb:Creat Ratio,Random UR Comments: Test performed at:[facility] Qp[address]rr[address] [place] [address] ; Dr. Angelo LING:CREAT 1483.0 {mg/g_CRE} (Abnormal) MICROALBUMIN,UR 918.0 mg/L (Normal) UR CREAT 61.9 mg/dL (Normal) :12 Renal Profile Comments: Test performed at:[facility] [address] [place] [address] CO2 29.0 mmol/L (Normal) Range: 21.0-32.0 CL [...] 126 mg/dLsuggests DIABETES MELLITUS per A.D.A. criteria. 97-Beu-964741:20 LIPID PANEL (70663) Comments: PATIENT WAS FASTINGPERFORMED BY: [facility]6370 [facility] [id number] LDL/HDL Ratio 1.0 {ratio_units} (Normal) Range: 0.0-3.2 [...] Cholesterol, Total 151 mg/dL (Normal) Range: 100-199 63-Nwi-817394:20 METABOLIC PANEL, Comments: PATIENT WAS FASTINGPERFORMED BY: OutlineShore Memorial HospitalJwszcg9168 [facility] [id number] Information: [id number] COMPREHENSIVE (23491) ALT (SGPT) 16 [iU]/L (Normal) Range: 0-32 [...] Glucose, Serum 148 mg/dL (Abnormal) Range: 65-99 48-Ptq-231890:21 CREATININE CLEARANCE Comments: PATIENT WAS FASTINGPERFORMED BY: [employer] [facility] [id number] Information: [id number] START 04/02/14@9AM FINISH 04/03/14 6:00 AM (10947) Creatinine Clearance 42 mL/min (Abnormal) Range: 88-128 Comments: The above range is based on 1.73 square meter average body surfacearea. Creatinine, Ur 24hr 812.3 {mg/24_hr} (Normal) Range: 800.0-1800.0 Creatinine, Urine 28.5 mg/dL (Normal) Range: 15.0-278.0 eGFR If Africn Am 45 mL/min/1.73 (Abnormal) eGFR If NonAfricn Am 39 mL/min/1.73 (Abnormal) Creatinine, Serum 1.33 mg/dL (Abnormal) Range: 0.57-1.00 44-Byx-210569:21 Total Protein,24 Hour Urine Comments: PATIENT WAS FASTINGPERFORMED BY: [employer]70 [facility] [id number] (39795) Prot,24hr calculated 1559.0 {mg/24_hr} (Abnormal) Range: 30.0-150.0 Protein,Total,Urine 54.7 mg/dL (Abnormal) Range: 0.0-15.0 :57 LIPID PANEL (37333) Comments: PATIENT WAS FASTINGPERFORMED BY: [employer] [facility] [id number] LDL/HDL Ratio 1.1 {ratio_units} (Normal) Range: 0.0-3.2 [...] MANUAL DIFF Comments: PATIENT WAS FASTINGPERFORMED BY: LabCoSh[facility] Memorial HospitalNvujcf8714 [facility] [id number] Information: [id number] (84434) Immature Grans (Abs) 0.0 {x10E3/uL} (Normal) Range: [...] PANEL, COMPREHENSIVE Comments: PATIENT WAS FASTINGPERFORMED BY: Flipps [employer] [facility] [id number] (83881) ALT (SGPT) 10 [iU]/L (Normal) Range: 0-32 [...] 0 Comments: Result Units: mg/dL AdultPerformed at: [facility] [employer] [place], [place] [address]Apl Director: Yousuf Bernardo PhD, Phone: [phone] C4 37 (Abnormal) Range: 9-36 0 [...] 75.6 mg/dL (Abnormal) CREU 49.3 mg/dL (Normal) 38-Pso-33596:21 CBC WITH MANUAL DIFF Comments: PATIENT WAS FASTINGPERFORMED BY: [facility]6370 [facility] [id number] Information: [id number] (74533) Immature Grans (Abs) 0.0 {x10E3/uL} (Normal) Range: [...] 3.77-5.28 WBC 4.5 {x10E3/uL} (Normal) Range: 3.4-10.8 81-Uoj-31673:21 METABOLIC PANEL, COMPREHENSIVE Comments: PATIENT WAS FASTINGPERFORMED BY: LabCoShore Memorial HospitalLfkoto7810 [facility] [id number] (65502) ALT (SGPT) 16 [iU]/L (Normal) Range: 0-32 [...] CREATININE CLEARANCE Comments: PATIENT NOT FASTINGPERFORMED BY: [employer] Uknycy3864 [facility] [id number] Information: [id number] START 10/30/13@8AM F INISH 10/31/13@8AM 2650ML (17006) Creatinine Clearance 44 mL/min (Abnormal) Range: 88-128 [...] Hour Urine Comments: PATIENT NOT FASTINGPERFORMED BY: [employer]70 [facility] [id number] (98673) Prot,24hr calculated 3458.3 {mg/24_hr} (Abnormal) Range: 30.0-150.0 Protein,Total,Urine 130.5 mg/dL (Abnormal) Range: 0.0-15.0 03-Zwi-852519:31 HgA1C , Office (50366) HgA1C , Office 6.4 % (Normal) Range: 4.6 - 7.1 99-Lnn-434872:27 Microscopic Examination Comments: PATIENT WAS FASTINGPERFORMED BY: OutlineCHRISTUS St. [facility] Medical CenterRshqkv7019 [facility] [id number] Bacteria Few (Normal) Mucus Threads Present (Normal) Epithelial Cells (non renal) 0-10 {/hpf} (Normal) Range: 0 - 10 RBC 3-10 {/hpf} (Abnormal) Range: 0 - 2 WBC 6-10 {/hpf} (Abnormal) Range: 0 - 5 :32 LIPID PANEL (74695) Comments: PATIENT WAS FASTINGPERFORMED BY: [employer] [facility] [id number] LDL/HDL Ratio 1.0 {ratio_units} (Normal) Range: 0.0-3.2 [...] CREATININE RATIO Comments: PATIENT WAS FASTINGPERFORMED BY: OutlineShore Memorial HospitalZophvl7111 [facility] [id number] (89572) AND (33307) Microalb/Creat Ratio 1998.9 {mg/g_creat} (Abnormal) Range: 0.0-30.0 Creatinine, Urine 73.4 mg/dL (Normal) Range: 15.0-278.0 Microalbumin, Urine 1467.2 ug/mL (Abnormal) Range: 0.0-17.0 :32 URINALYSIS, W/ MICRO (34028) Comments: PATIENT WAS FASTINGPERFORMED BY: [facility]6370 [facility] [id number] Microscopic Examination See below: (Normal) Comments: Microscopic was indicated and was performed. Nitrite, Urine Negative (Normal) Urobilinogen,Semi-Qn 0.2 mg/dL (Normal) Range: 0.0-1.9 Bilirubin Negative (Normal) Occult Blood Trace (Abnormal) Ketones Negative (Normal) Glucose Negative (Normal) Protein 3+ (Abnormal) WBC Esterase Trace (Abnormal) Appearance Clear (Normal) Urine-Color Yellow (Normal) pH 6.5 (Normal) Range: 5.0-7.5 Specific Allison 1.015 (Normal) Range: 1.005-1.030 41-Xst-24186:32 CBC WITH MANUAL DIFF Comments: PATIENT WAS FASTINGPERFORMED BY: LabCoSh[facility] Memorial HospitalDcrcdk6556 [facility] [id number] Information: [id number] (65209) Immature Grans (Abs) 0.0 {x10E3/uL} (Normal) Range: [...] PANEL, COMPREHENSIVE Comments: PATIENT WAS FASTINGPERFORMED BY: [employer]70 [facility] [id number] (80502) ALT (SGPT) 16 [iU]/L (Normal) Range: 0-32 [...] B-12 (CYANOCOBALAMIN) Comments: PATIENT WAS FASTINGPERFORMED BY: ZhongSou6370 [facility] [id number] (06358) Vitamin B12 >1999 pg/mL (Abnormal) Range: 211-946 73-Tuj-627198:01 HgA1C , Office (39487) HgA1C , Office 6.4 % (Normal) Range: 4.6 - 7.1 :37 METABOLIC PANEL, COMPREHENSIVE Comments: PATIENT WAS FASTINGPERFORMED BY: [employer]70 [facility] [id number] (13051) ALT (SGPT) 12 [iU]/L (Normal) Range: 0-32 [...] (Abnormal) Range: 65-99 :37 Vitamin D Hydroxy (24191) Comments: PATIENT WAS FASTINGPERFORMED BY: [employer]70 [facility] [id number] Vitamin D, 25-Hydroxy 47.4 ng/mL (Normal) Range: 30.0-100.0 Comments: Vitamin D deficiency has been defined by the [place] ofMedicine and an Endocrine Society practice guideline as alevel of serum 25-OH vitamin D less than 20 ng/mL (1,2).The Endocrine Society went on to further define vitamin Dinsufficiency as a level between 21 and 29 ng/mL (2).1. IOM ([place] of Medicine). 2010. Dietary reference intakes for calcium and D. [place]: The National AcademWistia Press.2. Mira MF, [place]ette [place], Tommy SWAIN, et al. Evaluation, treatment, and prevention of vitamin D deficiency: an Endocrine Society clinical practice guideline. JCEM. 2010; 96(7):1911-30. :37 LIPID PANEL (47147) Comments: PATIENT WAS FASTINGPERFORMED BY: ZhongSou6370 [facility] [id number] LDL/HDL Ratio 1.2 {ratio_units} (Normal) Range: 0.0-3.2 [...] MANUAL DIFF Comments: PATIENT WAS FASTINGPERFORMED BY: ZhongSou6370 [facility] [id number] Information: [id number] (52830) Immature Grans (Abs) 0.0 {x10E3/uL} (Normal) Range: [...] Qn, 24-Hr Comments: PATIENT NOT FASTINGPERFORMED BY: Flipps Vfqfud7615 [facility] [id number] Information: ADD [id number] AND DRAW FEE 99 6660 VOLUME 2600 164LBS 5' '3 Urine Prot,24hr calculated 920.4 {mg/24_hr} Range: 30.0-150.0 (Abnormal) Protein,Total,Urine 35.4 mg/dL Range: 0.0-15.0 (Abnormal) : Written Authorization WAR (Normal) Comments: PATIENT NOT FASTINGPERFORMED BY: Outline Ammaas3719 [facility] [id number] Comments: Written Authorization Received.Authorization received from Chiqui BRICEÑO LPN [id number] by Marleen Sharma :52 Metabolic Panel, Basic Comments: PATIENT NOT FASTINGPERFORMED BY: [employer]pps Fldyjv4969 [facility] [id number] Information: ADD [id number] AND DRAW FEE 99 6660 VOLUME 2600 164LBS 5' '3 (28037) Calcium, Serum 9.7 mg/dL (Normal) Range: 8.6-10.2 [...] mg/dL (Abnormal) Range: 65-99 :52 CREATININE CLEARANCE (04719) Comments: PATIENT NOT FASTINGPERFORMED BY: Outline Gbwtda9149 [facility] [id number] Creatinine Clearance 46 mL/min (Abnormal) Range: 88-128 Comments: The above range is based on 1.73 square meter average body surfacearea. Creatinine, Ur 24hr 899.6 {mg/24_hr} (Normal) Range: 800.0-1800.0 Creatinine, Urine 34.6 mg/dL (Normal) Range: 15.0-278.0 :52 24 hour urine for Protein Comments: PATIENT NOT FASTINGPERFORMED BY: Flipps Tueijy2922 [facility] [id number] (42933) Microalb/Creat Ratio 695.4 {mg/g_creat} (Abnormal) Range: 0.0-30.0 Microalbumin, Urine 240.6 ug/mL (Abnormal) Range: 0.0-17.0 8-Hsq-444317:13 HgA1C , Office (37253) HgA1C , Office 6.3 % (Normal) Range: 4.6 - 7.1 :01 Blood Glucose , Office (12649) Blood Glucose , Office 162 (Normal) 62-Uia-001708:02 Microscopic Examination Comments: PATIENT NOT FASTINGPERFORMED BY: [facility] Aajjqj4523 Willoughby RoadDublKing's Daughters Medical Center [id number] Bacteria Few (Normal) Mucus Threads Present (Normal) [...] Hebert M.D.October 19, 2012 at 2:42:14 PM [id number] Signed GP/GP If you are the referring physician and would like to consult [facility] theradiologist who provided this interpretation, please contact Yasmany Pond at [phone]. If this radiologist is unavailable, youwill be directed to another radiologist to assist. If y ou are a patient with a question regarding this report, pleasecontactyour referring physician directly. Professional Interpretation Provided By: [employer], Phone , These documents contain legally protected [...] 10/19/12 1444 Sign by: Misael Hebert MD 55-Pft-238307:59 TSH (30947) Comments: PATIENT WAS FASTINGPERFORMED BY: [facility] [id number] TSH 1.230 {uIU/mL} (Normal) Range: 0.450-4.500 :59 LIPID PANEL (13623) Comments: PATIENT WAS FASTINGPERFORMED BY: [facility] [id number] LDL/HDL Ratio 0.5 {ratio_units} (Normal) Range: 0.0-3.2 LDL Cholesterol Calc 47 mg/dL (Normal) Range: 0-99 Cholesterol, Total 149 mg/dL (Normal) Range: 100-199 HDL Cholesterol 91 mg/dL (Normal) Comments: According to ATP-III Guidelines, HDL-C >59 mg/dL is considered anegative risk factor for CHD. Triglycerides 57 mg/dL (Normal) Range: 0-149 VLDL Cholesterol Cesar 11 mg/dL (Normal) Range: 5-40 00-Ogq-130255:02 URINALYSIS, W/ MICRO Comments: PATIENT NOT FASTINGPERFORMED BY: [facility] [id number] Information: [id number] (19825) Microscopic Examination See below: (Normal) Nitrite, Urine Negative (Normal) Bilirubin Negative (Normal) Urobilinogen,Semi-Qn 0.2 mg/dL (Normal) Range: 0.0-1.9 Occult Blood Negative (Normal) Ketones Negative (Normal) Glucose Negative (Normal) Protein 3+ (Abnormal) WBC Esterase Negative (Normal) Appearance Clear (Normal) Urine-Color Yellow (Normal) pH 5.5 (Normal) Range: 5.0-7.5 Specific Allison 1.015 (Normal) Range: 1.005-1.030 :59 CBC WITH MANUAL DIFF Comments: PATIENT WAS FASTINGPERFORMED BY: [facility] [id number] Information: [id number] (69024) Immature Grans (Abs) 0.0 {x10E3/uL} (Normal) Range: [...] 3.77-5.28 WBC 4.8 {x10E3/uL} (Normal) Range: 3.4-10.8 92-Bfq-892519:59 METABOLIC PANEL, COMPREHENSIVE Comments: PATIENT WAS FASTINGPERFORMED BY: LabCoShore Memorial HospitalZdkyfj8987 [facility] [id number] (99201) ALT (SGPT) 14 [iU]/L (Normal) Range: 0-32 [...] Glucose, Serum 104 mg/dL (Abnormal) Range: 65-99 6-Tuh-172989:37 HgA1C , Office (06476) HgA1C , Office 6.0 % (Normal) Range: 4.6 - 7.1 2-Zdr-287375:31 CRE CREAT 1.3 mg/dL (Abnormal) Range: 0.6-1.0 [...] ischemic changes in thecerebral white matter. Signed:Donna aGlan M.D.August 09, 2012 at 2:38:03 PM [id number] Signed PV/PV If you are the referring physician and would like to consult with theradiologist who provided this interpretation, please contact Donna Burnett M.D. at [phone]. If this radiologist is unavailable, youwillbe directed to another radiologist to assist. If you are a patient with a question regarding this report, pleasecontactyour referring physician evelyne carreractly. Professional Interpretation Provided By: [employer], Phone , These documents contain legally protected [...] 08/09/12 1441 Sign by: Donna Martin MD 52-Moj-044310:31 CBC with manual diff Comments: PATIENT NOT FASTINGPERFORMED BY: [facility] Kfewnk0586 [facility] [id number] Information: [id number] (23548) Immature Grans (Abs) 0.0 {x10E3/uL} (Normal) Range: [...] 3.77-5.28 WBC 3.2 {x10E3/uL} (Abnormal) Range: 4.0-10.5 98-Ays-985456:31 Metabolic Panel, Comprehensive Comments: PATIENT NOT FASTINGPERFORMED BY: LabCoShore Memorial HospitalIolblt1460 [facility] [id number] (03322) ALT (SGPT) 19 [iU]/L (Normal) Range: 0-32 [...] mg/dL (Abnormal) Range: 65-99 :31 LIPID PANEL (05799) Comments: PATIENT WAS FASTINGPERFORMED BY: [employer]comlin6370 [facility] [id number] LDL/HDL Ratio 0.8 {ratio_units} (Normal) Range: 0.0-3.2 [...] MANUAL DIFF Comments: PATIENT WAS FASTINGPERFORMED BY: [facility] [employer]6370 [facility] [id number] Information: [id number] (27084) Immature Grans (Abs) 0.0 {x10E3/uL} (Normal) Range: [...] PANEL, COMPREHENSIVE Comments: PATIENT WAS FASTINGPERFORMED BY: LabCoShore Memorial HospitalVvxxzx9103 [facility] [id number] (83174) ALT (SGPT) 22 [iU]/L (Normal) Range: 0-32 [...] (Abnormal) Range: 65-99 :45 HgA1C , Office (45377) HgA1C , Office 6.1 % (Normal) Range: 4.6 - 7.1 70-Jap-074223:16 CRE CREAT 1.1 mg/dL (Abnormal) Range: 0.6-1.0 76-Nzi-85344:00 BRAIN W/WO CONTRAST Radiology Report See Note [...] Galan M.D.February 02, 2012 at 5:10:18 PM [id number] Signed PV/PV If you are the referring physician and w sarahild like to consult with theradiologist who provided this interpretation, please contact Donna Burnett M.D. at [phone]. If this radiologist is unavailable, youwillbe directed to another radiol ogist to assist. If you are a patient with a question regarding this report, pleasecontactyour referring physician directly. Professional Interpretation Provided By: [employer], Phone ,Fa x [phone] These documents contain legally protected and confidential [...] 1714 S ign by: Donna Martin MD 62-Eek-386612:16 DEXA BONE DENSITY STUDY (HP) Radiology Report [...] Coronel M.D.January 20, 2012 at 2:43:46 PM [phone] Signed KERA/KERA If you ar e the [...] on 01/20/121446 Sign by: David Coronel MD 47-Rdw-065584:15 BILAT SCRN DIGITAL & CAD Radiology Report [...] Coronel M.D.January 20, 2012 at 1:20:11 PM [phone] Signed KERA/KERA If you are the referring physician and would like to consult with theradiologist who provided this interpretation, please contact Yasmany Parnell at . If this radiologist is unavailable,youwill be directed to another radiologist to assist. If you are a patient with a question regarding this report, pleasecontactyour referring physician directly. Professional Interpretation Provided By: [employer], Phone , These documents contain legally [...] 01/20/12 1324 Sign by: David Coronel MD 8-Mot-328689:56 PELVIC (NON ) Radiology Report See Note [...] Vuong M.D.January 10, 2012 at 8:39:09 PM [phone] Signed JL/JOHNNY If you are the referring physician and would like to consult with theradiologist who provided this inte rpretation, please contact Radha Vuong M.D. at [phone]. If this radiologist is unavailable, you will bedirected to another radiologist to assist. If you are a patient with a question regarding this r eport, pleasecontactyour referring physician directly. Professional Interpretation Provided By: [employer], Phone , PROCEDURE: ULTRASOUND OF THE FEMALE [...] Vuong M.D.January 10, 2012 at 8:40:07 PM [id number] Signed JL/JL If you are the referring physician and would like to consult with theradiologist who provided this interpretation, please contact Radha Vuong M.D. at [phone]. If this radiologist is unavailable, you will bedirected to another radiologist to assist. If you are a patient with a question regarding this report, pleasecontactyour referring ph ysician directly. Professional Interpretation Provided By: [employer], Phone , These documents contain legally protected [...] RATIO Comments: PATIENT WAS FASTINGPERFORMED BY: [facility] Vabpbv8357 [facility] [id number] (14553) AND (77650) Microalb/Creat Ratio 829.4 {mg/g_creat} (Abnormal) Range: 0.0-30.0 Microalbumin, Urine 437.1 ug/mL (Abnormal) Range: 0.0-17.0 Creatinine, Urine 52.7 mg/dL (Normal) Range: 15.0-278.0 :35 CBC WITH MANUAL DIFF Comments: PATIENT WAS FASTINGPERFORMED BY: [facility] Ggefqw4353 [facility] [id number] Information: [id number] (78430) Immature Grans (Abs) 0.0 {x10E3/uL} (Normal) Range: [...] 3.77-5.28 WBC 3.7 {x10E3/uL} (Abnormal) Range: 4.0-10.5 17-Ovu-30055:35 METABOLIC PANEL, COMPREHENSIVE Comments: PATIENT WAS FASTINGPERFORMED BY: LabCoShore Memorial HospitalKlymks2286 [facility] [id number] (79980) ALT (SGPT) 15 [iU]/L (Normal) Range: 0-32 [...] mg/dL (Abnormal) Range: 65-99 :35 LIPID PANEL (08002) Comments: PATIENT WAS FASTINGPERFORMED BY: OutlineShore [facility] HospitalFqegib8410 [facility] [id number] LDL/HDL Ratio 0.9 {ratio_units} (Normal) Range: 0.0-3.2 LDL Cholesterol Calc 72 mg/dL (Normal) Range: 0-99 HDL Cholesterol 83 mg/dL (Normal) Comments: According to ATP-III Guidelines, HDL-C >59 mg/dL is considered anegative risk factor for CHD. VLDL Cholesterol Cesar 18 mg/dL (Normal) Range: 5-40 Triglycerides 90 mg/dL (Normal) Range: 0-149 Cholesterol, Total 173 mg/dL (Normal) Range: 100-199 :15 HgA1C , Office (63111) HgA1C , Office 6.2 % (Normal) Range: 4.6 - 7.1 :30 CBC WITH MANUAL DIFF Comments: PATIENT WAS FASTINGPERFORMED BY: OutlineShore [facility] HospitalOxfeuc6778 [facility] [id number] Information: [id number] (14647) Immature Grans (Abs) 0.0 {x10E3/uL} (Normal) Range: [...] 3.77-5.28 WBC 4.2 {x10E3/uL} (Normal) Range: 4.0-10.5 18-Pxq-00608:30 METABOLIC PANEL, COMPREHENSIVE Comments: PATIENT WAS FASTINGPERFORMED BY: LabCoShore [facility] HospitalSdsqha3543 [facility] [id number] (46139) ALT (SGPT) 19 [iU]/L (Normal) Range: 0-40 [...] mg/dL (Abnormal) Range: 65-99 :30 LIPID PANEL (09606) Comments: PATIENT WAS FASTINGPERFORMED BY: LabCoSh[facility] HospitalOpicce2324 [facility] [id number] LDL/HDL Ratio 0.9 {ratio_units} (Normal) Range: 0.0-3.2 [...] 100-199 Comments: Please note reference interval change 06-Oql-204328:48 Rapid Flu (18813 x 2) Influenza A Ag negative (Normal) [...] redmond M.D.November 05, 2011 at 3:25:08 PM [id number] Signed GP/GP If you are the referring physician and would like to consult with theradiologist who provided this interpretation, please contact Yasmany Pond at [phone]. If this radiologist is unavailable, youwill be directed to another radiologist to assist. If you are a patient with a question regarding this report, ple asecontactyour referring physician directly. Professional Interpretation Provided By: [employer], Phone , These documents contain legally protected [...] redmond M.D.November 05, 2011 at 3:25:08 PM [phone] Signed GP/GP If you are the referring physician and would like to consult with theradiologist who provided this interpretation, please contact Yasmany Pond at [phone]. If this radiologist is unavailable, youwill be directed to another radiologist to assist. If you are a patient with a question regarding this report, ple asecontactyour referring physician directly. Professional Interpretation Provided By: [employer], Phone , These documents contain legally protected [...] 11/05/11 1552 Sign by: Misael Hebert MD 63-Afs-331153:20 METABOLIC PANEL, Comments: PATIENT WAS FASTINGPERFORMED BY: LabCoShore [facility] HospitalTriieu7600 [facility] [id number] Information: [id number],2ND ORDER NO DRAW F EE COMPREHENSIVE (22070) ALT (SGPT) 31 [iU]/L (Normal) Range: 0-40 [...] Glucose, Serum 155 mg/dL (Abnormal) Range: 65-99 93-Kfb-85882:49 Creatinine Clearance Comments: PATIENT WAS FASTINGPERFORMED BY: EVE [facility] Cuklpg3159 [facility] [id number] Information: 10/30@6AM 10/31@730AM Creatinine Clearance 58 mL/min [...] 24-Hr Comments: PATIENT WAS FASTINGPERFORMED BY: [facility] Uaxbod2307 [place] [id number] Urine Prot,24hr calculated 1023.8 {mg/24_hr} (Abnormal) Range: 30.0-150.0 Protein,Total,Urine 52.5 mg/dL (Abnormal) Range: 0.0-15.0 :04 HgA1C , Office (87335) HgA1C , Office 6.1 % (Normal) Range: [...] regarding this repor t, please call our [id number] line @ Dictated on 07/27/11 1040 by GAYE PEREZ MD RTranscribed on 07/28/11 122 by ITS IMPORTSign by GAYE PEREZ MD on 07/28/115 Sign by: GAYE PEREZ MD 82-Wiw-38214:54 Vitamin D Hydroxy (46683) Comments: PATIENT WAS FASTINGPERFORMED BY: LabCoShore [facility] HospitalSmrgeo7355 [facility] [id number] Vitamin D, 25-Hydroxy 48.8 ng/mL (Normal) Range: 30.0-100.0 Comments: Vitamin D deficiency has been defined by the [place] ofMedicine and an Endocrine Society practice guideline as alevel of serum 25-OH vitamin D less than 20 ng/mL (1,2).The Endocrine Society went on to further define vitamin Dinsufficiency as a level between 21 and 29 ng/mL (2).1. IOM ([place] of Medicine). 2010. Dietary reference intakes for calcium and D. [place]: The National Academies Press.2. Mira MF, Rosette LOPEZ, Tommy SWAIN, et al. Evaluation, treatment, and prevention of vitamin D deficiency: an Endocrine Society clinical practice guideline. JCEM. 2010; 96(7):1911-30. :54 LIPID PANEL (62201) Comments: PATIENT WAS FASTINGPERFORMED BY: Hall [employer]70 [facility] [id number] LDL/HDL Ratio 1.0 {ratio_units} (Normal) Range: 0.0-3.2 [...] MANUAL DIFF Comments: PATIENT WAS FASTINGPERFORMED BY: LabCoSalespush.comCroirb8535 [facility] [id number] Information: ADD [id number] AND DRAW FEE 99 3210 (72388) Immature Grans (Abs) 0.0 {x10E3/uL} (Normal) Range: [...] 3.77-5.28 WBC 4.3 {x10E3/uL} (Normal) Range: 4.0-10.5 74-Fae-86324:54 METABOLIC PANEL, COMPREHENSIVE Comments: PATIENT WAS FASTINGPERFORMED BY: LabCoShore Memorial HospitalEfjkaw5691 [facility] [id number] (14170) ALT (SGPT) 48 [iU]/L (Abnormal) Range: 0-40 [...] (Abnormal) Range: 65-99 :18 HgA1C , Office (36092) HgA1C , Office 6.1 % (Normal) Range: 4.6 - 7.1 :18 Blood Glucose , Office (17462) Blood Glucose , Office 103 (Normal) 06-Yhm-80086:00 ABDOMEN WITH AND W/O CONTRAST Radiology Report [...] radiologist regarding this report, please call our [id number] line @ Dictated on 03/18/11 1715 by Jennie Pugh MDieTranscribed on 03/22/11 1401 by ITS IMPORTSign by Jeanette Hill MD on 03/22/11 1402 Sign by: Jeanette Pugh MD 68-Uoa-111974:29 SERUM CRE & GFR CREAT,SERUM 1.1 mg/dL (Abnormal) Range: 0.6-1.0 99-Pfm-94974:00 BRAIN W/WO CONTRAST Radiology Report See Note [...] seen in the right frontal white matter telecommunications 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 The cortical [...] on 03/02/111729 Sign by: Donna Martin MD 33-Fht-56127:00 UPPER EXT. JOINT ONLY(ROUTINE) Radiology Report See [...] on 01/29/111715 Sign by: Aakash Barbosa MD 37-Lst-30082:44 ABDOMEN/PELVIS WITH CONTRAST Radiology Report See Note [...] 02/01/11 1021 Sign by: ALEJANDRO DRUMMOND DO 36-Daq-073611:57 SINUS/FACIAL BONE Radiology Report See Note (Normal) [...] 01/19/11 1448 Sign by: Misael Hebert MD 86-Hua-40237:00 BRAIN W/WO CONTRAST Radiology Report See Note [...] addition, there is a small region of skctkopqgP5zmsomcmcnj along the anterior margin of the mass, [...] on 01/19/111650 Sign by: GAYE PEREZ MD 93-Lov-81685:00 BRAIN/HEAD W/WO CONTRAST Radiology Report See Note [...] 01/19/11 1447 Sign by: Misael Hebert MD 91-Bqi-703522:08 BILAT SCRN DIGITAL & CAD Radiology Report [...] CREATININE RATIO Comments: PATIENT NOT FASTINGPERFORMED BY: Hall [facility] Bjmajz1462 [facility]noteAt[facility] Health Mer[facility] [id number] (35019) AND (75443) Microalb/Creat Ratio 1028.4 {mg/g_creat} (Abnormal) Range: 0.0-30.0 Microalbumin, Urine 1341.0 ug/mL (Abnormal) Range: 0.0-17.0 Creatinine, Urine 130.4 mg/dL (Normal) Range: 15.0-278.0 :20 CBC WITH MANUAL DIFF (85648) Comments: PATIENT NOT FASTINGPERFORMED BY: [employer].CoCHRISTUS St. Vincent Regional Medical CenterTddsgg2204 [facility] HealthRecochemAtrium Health Mercy [id number] Immature Grans (Abs) 0.0 {x10E3/uL} (Normal) Range: [...] {x10E3/uL} (Normal) Range: 4.0-10.5 :20 LIPID PANEL (60478) Comments: PATIENT NOT FASTINGPERFORMED BY: EVE [facility]6370 [facility] [id number] LDL/HDL Ratio 0.9 {ratio_units} (Normal) Range: 0.0-3.2 [...] COMPREHENSIVE Comments: PATIENT NOT FASTINGPERFORMED BY: EVE LabCoShore Memorial HospitalPvcjsm1010 [facility] [id number] (35614) ALT (SGPT) 28 [iU]/L (Normal) Range: 0-40 [...] (Abnormal) Range: 65-99 :39 HgA1C , Office (74237) HgA1C , Office 6.5 % (Normal) Range: 4.6 - 7.1 :39 Blood Glucose , Office (41454) Blood Glucose , Office 128 (Normal) 3-Bkd-369619:19 CBC With Differential/Platelet Comments: PATIENT WAS FASTINGPERFORMED BY: LabCoShore Memorial HospitalLejtds1957 [facility] [id number] Immature Grans (Abs) 0.0 {x10E3/uL} (Normal) Range: [...] 3.80-5.10 WBC 5.6 {x10E3/uL} (Normal) Range: 4.0-10.5 1-Imo-522065:19 Comp. Metabolic Panel (14) Comments: PATIENT WAS FASTINGPERFORMED BY: LabCoShore Memorial HospitalZqwsdk6216 [facility] [id number]; appt 10/10/11 ALT (SGPT) 18 [iU]/L (Normal) [...] Glucose, Serum 113 mg/dL (Abnormal) Range: 65-99 9-Wlk-326861:19 Lipid Panel With LDL/HDL Comments: PATIENT WAS FASTINGPERFORMED BY: [facility] Ykeyta9630 [facility] [id number] Ratio LDL/HDL Ratio 1.0 {ratio_units} Range: 0.0-3.2 [...] 0.800 {uIU/mL} Comments: PATIENT WAS FASTINGPERFORMED BY: [facility] [id number] 2:19 (Normal) Range: 0.450-4.500 Vitamin D, 25-Hydroxy 44.0 ng/mL (Normal) Comments: PATIENT WAS FASTINGPERFORMED BY: [facility] [id number] 2:19 Range: 32.0-100.0 Comments: Effective February 22, 2011 Vitamin D, 25-Hydroxy reference intervals will be changing to 30-100. .Recent studies consider the lower li sandra of 32.0 ng/mL to be athreshold for optimal health.Otf HAYES. J Nutr. 2004;135(2):317-22. 49-Cif-076429:54 HgA1C , Office (57829) HgA1C , Office 6.6 % (Normal) Range: 4.6 - 7.1 :54 Blood Glucose , Office (84523) Blood Glucose , Office 134 (Normal) 2-Zko-643628:40 Creatinine Clearance Comments: PERFORMED BY: [employer] [facility] [id number] Information: 10/07@7AM 10/08@3AM Creatinine Clearance 56 mL/min [...] Protein Total, Qn, 24-Hr Comments: PERFORMED BY: ZhongSou6370 irisnotein [place] [id number] Urine Prot,24hr calculated 610.5 {mg/24_hr} (Abnormal) Range: 30.0-150.0 Protein,Total,Urine 40.7 mg/dL (Abnormal) Range: 0.0-15.0 :46 Vitamin D Hydroxy (12333) Comments: PATIENT WAS FASTINGPERFORMED BY: ZhongSou6370 [place] [id number] Vitamin D, 25-Hydroxy 36.5 ng/mL (Normal) Range: 32.0-100.0 Comments: Recent studies consider the lower limit of 32.0 ng/mL to be athreshold for optimal health.Otf HAYES. J Nutr. 2004;135(2):317-22. :46 METABOLIC PANEL, COMPREHENSIVE Comments: PATIENT WAS FASTINGPERFORMED BY: ZhongSou6370 irisnoteAtrium Health Mercy [id number] (49930) ALT (SGPT) 34 [iU]/L (Normal) Range: 0-40 [...] mg/dL (Abnormal) Range: 65-99 :46 LIPID PANEL (07927) Comments: PATIENT WAS FASTINGPERFORMED BY: ZhongSou6370 [facility] [id number] LDL Cholesterol Calc 85 mg/dL (Normal) Range: [...] MANUAL DIFF Comments: PATIENT WAS FASTINGPERFORMED BY: FlippsShore Memorial HospitalJinzai1792 [facility] [id number] Information: [id number]; appt 10/12/10 (88993) Immature Grans (Abs) 0.0 {x10E3/uL} (Normal) Range: [...] 3.80-5.10 WBC 5.5 {x10E3/uL} (Normal) Range: 4.0-10.5 7-Xyg-887143:07 HgA1C , Office (79914) HgA1C , Office 6.6 % (Normal) Range: 4.6 - 7.1 :07 Blood Glucose , Office (58051) Blood Glucose , Office 114 (Normal) 29-Pom-750574:00 Creatinine Clearance Comments: PERFORMED BY: EVE [facility] Unakwq9935 [facility] [id number] Information: 12/31@8AM 01/01@4AM Creatinine Clearance 48 mL/min [...] Creatinine, Serum 1.20 mg/dL (Abnormal) Range: 0.57-1.00 12-Kfs-364173:00 Protein Total, Qn, 24-Hr Comments: PERFORMED BY: [facility]6370 [facility] [id number] Urine Prot,24hr calculated 1070.6 {mg/24_hr} (Abnormal) Range: 30.0-150.0 Protein,Total,Urine 79.3 mg/dL (Abnormal) Range: 0.0-15.0 06-Fmu-955637:48 BILAT SCRN DIGITAL & CAD Radiology Report See Note (Normal) Comments: Exam Number: [id number] MAMMOGRAPHY - BILATERAL SCREENING INDICATION:Routine annual screening [...] of attaching a ResultCode to this exam.ADDENDUM: [id number] HPBI/MDS Reported By: MISAEL HEBERT 62-Qzd-389017:48 DEXA BONE DENSITY STUDY (HP) Radiology Report See Note (Normal) Comments: Exam Number: [id number] CLINICAL:This is a 69-year-old female patient with postmenopausal screening. EXAMINATION:DUAL ENERGY X-RAY ABSORPTIOMETRY / DEXA. TECHNIQUE:Bone Density Measurements (BMD) of lumb ar spine and bilateral hipswere obtained using a AURSOS scanner.. COMPARISON:None. FINDINGS: Lumbar Spine (L1-L4): g/cm2 [...] Osteoporosis Foundation http://www.nof.org Reported By: MISAEL HEBERT 21-Lcj-369410:29 HgA1C , Office (33027) HgA1C , Office 6.5 % (Normal) Range: 4.6 - 7.1 48-Yjp-682041:29 Blood Glucose , Office (70963) Blood Glucose , Office 109 (Normal) 54-Fnq-71267:05 CBC With Differential/Platelet Comments: PATIENT WAS FASTINGPERFORMED BY: [facility] Rsrfhl2734 [facility] [id number] Immature Grans (Abs) 0.0 {x10E3/uL} (Normal) Range: [...] Panel (14) Comments: PATIENT WAS FASTINGPERFORMED BY: [facility] [id number] ALT (SGPT) 20 [iU]/L (Normal) Range: 0-40 [...] With LDL/HDL Comments: PATIENT WAS FASTINGPERFORMED BY: [employer] [facility] [id number] Ratio HDL Cholesterol 54 mg/dL (Normal) Comments: [...] ng/mL (Normal) Comments: PATIENT WAS FASTINGPERFORMED BY: ZhongSou6370 [facility] [id number] :05 Range: 32.0-100.0 Comments: Recent studies consider the lower limit of 32.0 ng/mL to be athreshold for optimal health.Otf HAYES. J Nutr. 2004;135(2):317-22. 83-Pkc-91293:41 SPLEEN (HP) Radiology Report See Note (Normal) Comments: Exam Number: [id number] ULTRASOUND OF THE SPLEEN A goal directed [...] Protein, 0.5 mg/L (Normal) Comments: PERFORMED BY: Airizu6370 [facility] [id number] 10:54 Quant Range: 0.0-4.9 17-Jun-2009 Hemoglobin A1c 6.3 % (Abnormal) Comments: PERFORMED BY: Air[employer]u6370 [facility] [id number] 10:54 Range: 4.8-5.6 Comments: Increased risk for diabetes: 5.7 - 6.4Diabetes: >6.4Glycemic control for adults with diabetes: <7.0.Please note reference interval change 17-Jun-2009 Sedimentation 4 mm/h (Normal) Comments: PERFORMED BY: meets [facility] [id number] 10:54 Rate-Westergren Range: 0-30 17-Jun-2009 Vitamin B12 1372 pg/mL Comments: PERFORMED BY: [employer]70 [facility] HealthRecochemAt[facility] Health [facility] [id number] 10:54 (Abnormal) Range: 211-911 Comments: Effective July 14, 2009, Vitamin B12 will bechanging to the [facility] ECLIA methodology. Thereference interval will be changing to:211 - 946 pg/mL 17-Jun-2009 Vitamin D, 25-Hydroxy 37.7 ng/mL Comments: PERFORMED BY: [employer]70 [facility] [id number] 10:54 (Normal) Range: 32.0-100.0 Comments: Recent studies consider the lower limit of 32.0 ng/mL to be athreshold for optimal health.Otf HAYES. J Nutr. 2004;135(2):317-22. 42-Ohx-960648:34 Vitamin D Hydroxy Comments: PATIENT NOT FASTINGPERFORMED BY: ZhongSou6370 [facility] [id number] Information: [id number],2ND ORDER NO DRAW F EE (27688) Vitamin D, 25-Hydroxy 48.5 ng/mL (Normal) Range: 30.0-100.0 Comments: Vitamin D deficiency has been defined by the [place] ofMedicine and an Endocrine Society practice guideline as alevel of serum 25-OH vitamin D less than 20 ng/mL (1,2).The Endocrine Society went on to further define vitamin Dinsufficiency as a level between 21 and 29 ng/mL (2).1. IOM ([place] of Medicine). 2010. Dietary reference intakes for calcium and D. [place]: The National Academies Press.2. Mira MF, Rosette [place], Tommy SWAIN, et al. Evaluation, treatment, and prevention of vitamin D deficiency: an Endocrine Society clinical practice guideline. JCEM. 2010; 96(7):1911-30. :50 HgA1C , Office (19454) HgA1C , Office 6.7 % (Normal) Range: 4.6 - 7.1 :50 Blood Glucose , Office (15144) Blood Glucose , Office 117 (Normal) :12 CBC With Differential/Platelet Comments: PERFORMED BY: [facility]6370 [facility] [id number] Information: 06/10@6AM3/10@330 Hematology Comments: Note: (Normal) Comments: [...] 3.80-5.10 WBC 3.6 {x10E3/uL} (Abnormal) Range: 4.0-10.5 44-Bji-509283:12 Comp. Metabolic Panel (14) Comments: PERFORMED BY: EVE [employer] Lvhkbo5508 [facility] [id number] Alkaline Phosphatase, S 68 [iU]/L (Normal) Range: [...] Glucose, Serum 124 mg/dL (Abnormal) Range: 65-99 45-Fyp-834137:12 Creatinine Clearance Comments: PERFORMED BY: EVE Airizu6370 [facility] [id number] Creatinine Clearance 49 mL/min (Abnormal) Range: 88-128 Comments: The above range is based on 1.73 square meter average body surfacearea. Creatinine, Ur 24hr 800.0 {mg/24_hr} (Normal) Range: 800.0-1800.0 Creatinine, Urine 40.0 mg/dL (Normal) Range: 15.0-278.0 13-Tos-942669:12 Lipid Panel With LDL/HDL Comments: PERFORMED BY: [employer]70 [facility] [id number] Ratio HDL Cholesterol 61 mg/dL (Normal) Comments: According to ATP-III Guidelines, HDL-C >59 mg/dL is considered anegative risk factor for CHD. LDL Cholesterol Calc 74 mg/dL (Normal) Range: 0-99 LDL/HDL Ratio 1.2 {ratio_units} (Normal) Range: 0.0-3.2 VLDL Cholesterol Cesar 17 mg/dL (Normal) Range: 5-40 Cholesterol, Total 152 mg/dL (Normal) Range: 100-199 Triglycerides 87 mg/dL (Normal) Range: 0-149 98-Xsp-281241:12 Protein Total, Qn, 24-Hr Comments: PERFORMED BY: [employer]70 [facility] [id number] Urine Prot,24hr calculated 1172.0 {mg/24_hr} Range: 30.0-150.0 (Abnormal) Protein,Total,Urine 58.6 mg/dL (Abnormal) Range: 0.0-15.0 TSH 1.280 {uIU/mL} Comments: PERFORMED BY: OutlineShore Memorial HospitalDvhdrq2535 [facility] [id number] 1:12 (Normal) Range: 0.450-4.500 :58 HgA1C , Office (12311) HgA1C , Office 6.0 % (Normal) Range: 4.6 - 7.1 :58 Blood Glucose , Office (08011) Blood Glucose , Office 113 (Normal) 7-Qja-872873:03 CBC With Differential/Platelet Comments: PATIENT WAS FASTINGPERFORMED BY: EVE OutlineShore Memorial HospitalVkkfbv6877 [facility] [id number] Baso (Absolute) 0.0 {x10E3/uL} (Normal) Range: 0.0-0.2 [...] 11.7-15.0 WBC 3.2 {x10E3/uL} (Abnormal) Range: 4.0-10.5 3-Xqb-383927:03 Comp. Metabolic Panel (14) Comments: PATIENT WAS FASTINGPERFORMED BY: [facility]6370 [facility] [id number] A/G Ratio 2.0 (Normal) Range: 1.1-2.5 Albumin, [...] Glucose, Serum 116 mg/dL (Abnormal) Range: 65-99 7-Uyf-423852:03 Lipid Panel With LDL/HDL Comments: PATIENT WAS FASTINGPERFORMED BY: LabCoShore Memorial HospitalPkogmp5820 [facility] [id number] Ratio Cholesterol, Total 167 mg/dL (Normal) Range: [...] ng/mL (Normal) Comments: PATIENT WAS FASTINGPERFORMED BY: WeVorceCo Tggmhd7091 [facility] [id number] :03 Range: 32.0-100.0 Comments: Recent studies consider the lower limit of 32.0 ng/mL to be athreshold for optimal health.Otf HAYES. J Nutr. 2004;135(2):317-22. 21-Mfv-721661:32 Urinalysis, Office (67626) UA - BILIRUBIN Negative (Normal) UA - BLOOD Hemolyzed Trace (Normal) UA - GLUCOSE Negative (Normal) UA - KETONES Negative mg/dL (Normal) UA - LEUKOCYTE ESTERASE Negative (Normal) UA - NITRITE Negative (Normal) UA - PH 6.5 (Normal) UA - PROTEIN 300 mg/dL (Normal) UA - SPECIFIC GRAVITY 1.020 (Normal) URINE UROBILINGN JATINDER TIMED 2 mg/dL (Normal) 7-Dfh-545158:19 URINE SETH CULTURE-JATINDER COL Comments: PATIENT NOT FASTINGClinical Information: SRC:UR ADD [id number] PERFORMED BY: [facility] Mcacgy2182 [facility] [id number] COUNT (57473) Result 1 ECV (Normal) Comments: Escherichia coli, [...] report (Normal) Culture,Comprehensiv e 09-Jan-20098:17 Urinalysis, Office (31957) UA - BILIRUBIN Negative (Normal) UA - BLOOD Hemolyzed Large (Normal) UA - GLUCOSE Negative (Normal) UA - KETONES Negative mg/dL (Normal) UA - LEUKOCYTE ESTERASE Moderate (Normal) UA - NITRITE Negative (Normal) UA - PH 7.0 (Normal) UA - PROTEIN 300 mg/dL (Normal) UA - SPECIFIC GRAVITY 1.020 (Normal) URINE UROBILINGN JATINDER TIMED 2 mg/dL (Normal) 6-Pqv-506415:05 Comp. Metabolic Panel (14) Comments: PATIENT WAS FASTINGPERFORMED BY: [facility]6370 [facility] [id number] A/G Ratio 1.7 (Normal) Range: 1.1-2.5 Albumin, [...] Panel (7) Comments: PATIENT WAS FASTINGPERFORMED BY: [facility]6370 [facility] [id number] Bilirubin, Direct 0.12 mg/dL (Normal) Range: 0.00-0.40 :05 Lipid Panel With LDL/HDL Comments: PATIENT WAS FASTINGPERFORMED BY: [place] 1006570 [facility] [id number] Ratio Cholesterol, Total 170 mg/dL (Normal) Range: [...] mg/dL (Normal) Comments: PATIENT WAS FASTINGPERFORMED BY: [facility]6370 [facility] [id number] :05 Range: 2.5-4.5 PTH, Intact 19 pg/mL (Normal) Comments: PATIENT WAS FASTINGPERFORMED BY: [facility]6370 [facility] [id number] :05 Range: 15-65 Vitamin D, 25-Hydroxy 38.9 ng/mL (Normal) Comments: PATIENT WAS FASTINGPERFORMED BY: [facility]6370 [facility] [id number] :05 Range: 32.0-100.0 Comments: Recent studies consider the lower limit of 32.0 ng/mL to be athreshold for optimal health.Otf HAYES. J Nutr. 2004;135(2):317-22. 9-Qyo-688321:40 HgA1C , Office (11182) HgA1C , Office 6.0 % (Normal) Range: 4.6 - 7.1 :40 Blood Glucose , Office (78200) Blood Glucose , Office 109 (Normal) :42 CBC With Differential/Platelet Comments: PATIENT WAS FASTINGPERFORMED BY: [facility] HospitalKsalfr6858 [facility] [id number] Baso (Absolute) 0.0 {x10E3/uL} (Normal) Range: 0.0-0.2 [...] Panel (14) Comments: PATIENT WAS FASTINGPERFORMED BY: [facility]Co[facility] HospitalHcfaqa3761 [facility] [id number] A/G Ratio 1.6 (Normal) Range: 1.1-2.5 Albumin, [...] Sodium, Serum 140 mmol/L (Normal) Range: 135-145 3-Zbe-241718:09 FECAL OCCULT HGB ASSAY, QUAL, 1-3 SIMULTANEOUS DETERMINATIONS (47438) FECAL OCCULT HGB ASSAY, QUAL, 1-3 SIMULTANEOU neg (Normal) :42 Microscopic Examination Comments: PATIENT WAS FASTINGPERFORMED BY: [facility] Bnieps9264 [facility] [id number] Bacteria None seen (Normal) Cast Type Hyaline casts (Normal) Casts Present {/lpf} (Abnormal) Epithelial Cells (non renal) 0-10 {/hpf} (Normal) Range: 0 - 10 Mucus Threads Present (Normal) RBC 0-3 {/hpf} (Normal) Range: 0 - 3 WBC 0-5 {/hpf} (Normal) Range: 0 - 5 :42 URINALYSIS W/O MICRO (76911) Comments: PATIENT WAS FASTINGPERFORMED BY: [facility] TradingKing[facility] [id number] Appearance Clear (Normal) Bilirubin Negative (Normal) Glucose Negative (Normal) Ketones Negative (Normal) Microscopic Examination See below: (Normal) Nitrite, Urine Negative (Normal) Occult Blood Negative (Normal) pH 5.0 (Normal) Range: 5.0-7.5 Protein 1+ (Abnormal) Specific Allison 1.013 (Normal) Range: 1.005-1.030 Urine-Color Yellow (Normal) Urobilinogen,Semi-Qn 0.2 mg/dL (Normal) Range: 0.0-1.9 WBC Esterase 1+ (Abnormal) :42 MICROALBUMIN: CREATININE RATIO Comments: PATIENT WAS FASTINGPERFORMED BY: [facility] LearningAt[facility] [id number] (14814) AND (23585) Creatinine, Urine 76.1 mg/dL (Normal) Range: 15.0-278.0 Microalb/Creat Ratio 292.1 {ug/mg_creat} (Abnormal) Range: 0.0-30.0 Microalbumin, Urine 222.3 ug/mL (Abnormal) Range: 0.0-17.0 :42 CBC WITH MANUAL DIFF (33466) Comments: PATIENT WAS FASTINGClinical Information: ADD DRAW FEE [id number] ADD J 03429 PERFORMED BY: [facility]At[facility] [id number] Baso (Absolute) 0.0 {x10E3/uL} (Normal) Range: 0.0-0.2 [...] PANEL, COMPREHENSIVE Comments: PATIENT WAS FASTINGPERFORMED BY: [facility] HospitalKfwaim9915 [facility] [id number] (00725) A/G Ratio 1.8 (Normal) Range: 1.1-2.5 Albumin, [...] Sodium, Serum 141 mmol/L (Normal) Range: 135-145 3-Mvp-117353:23 HgA1C , Office (82384) HgA1C , Office 6.0 % (Normal) Range: 4.6 - 7.1 5-Nya-195567:23 Blood Glucose , Office (01498) Blood Glucose , Office 103 (Normal) 76-Jpd-910186:38 CBC WITH MANUAL DIFF (42434) Comments: PATIENT WAS FASTINGClinical Information: ADD DRAW FEE [id number] ADD J 67785 PERFORMED BY: [facility] 6874370 [facility] [id number] Baso (Absolute) 0.0 {x10E3/uL} (Normal) Range: 0.0-0.2 [...] 11.7-15.0 WBC 4.0 {x10E3/uL} (Normal) Range: 4.0-10.5 05-Ayh-897877:38 METABOLIC PANEL, COMPREHENSIVE Comments: PATIENT WAS FASTINGPERFORMED BY: [facility] HospitalTugpzw9979 [facility] [id number] (18945) A/G Ratio 1.8 (Normal) Range: 1.1-2.5 Albumin, [...] Sodium, Serum 142 mmol/L (Normal) Range: 135-145 79-Jav-083967:38 HEPATIC FUNCTION PANEL Comments: PATIENT WAS FASTINGPERFORMED BY: [facility] [employer]6370 [facility] [id number] ([id number]) Bilirubin, Direct 0.08 mg/dL (Normal) Range: 0.00-0.40 57-Ulm-860616:38 LIPID PANEL (61229) Comments: PATIENT WAS FASTINGPERFORMED BY: [facility]6370 [facility] [id number] Cholesterol, Total 200 mg/dL (Abnormal) Range: 100-199 [...] Cholesterol Cesar 18 mg/dL (Normal) Range: 5-40 7-Sgo-528802:36 HgA1C , Office (28621) HgA1C , Office 6.1 % (Normal) Range: 4.6 - 7.1 7-Bzf-337969:36 Blood Glucose , Office (97064) Blood Glucose , Office 98 (Normal) 42-Pam-253803:33 CBC With Differential/Platelet Comments: PATIENT WAS FASTINGClinical Information: SRC:UR PERFORMED BY: EVE [facility]Co[facility] HospitalNuzpkr4789 [facility] [id number] Baso (Absolute) 0.0 {x10E3/uL} (Normal) Range: 0.0-0.2 [...] 11.7-15.0 WBC 4.8 {x10E3/uL} (Normal) Range: 4.0-10.5 94-Hob-380257:33 Comp. Metabolic Panel (14) Comments: PATIENT WAS FASTINGPERFORMED BY: EVE [facility]Co[facility] HospitalHyhipm3493 [facility] [id number] A/G Ratio 1.6 (Normal) Range: 1.1-2.5 Albumin, [...] Serum 92 mg/dL (Normal) Range: 65-99 If -Togolese 57 mL/min/1.73 Comments: Note: Persistent reduction for [...] Sodium, Serum 142 mmol/L (Normal) Range: 135-145 90-Zpp-518231:33 Lipid Panel With LDL/HDL Comments: PATIENT WAS FASTINGPERFORMED BY: [facility] HospitalKxyuvg1638 [facility] [id number] Ratio Cholesterol, Total 174 mg/dL (Normal) Range: 100-199 HDL Cholesterol 67 mg/dL (Normal) Comments: According to ATP-III Guidelines, HDL-C >59 mg/dL is considered anegative risk factor for CHD. LDL Cholesterol Calc 85 mg/dL (Normal) Range: 0-99 LDL/HDL Ratio 1.3 {ratio_units} (Normal) Range: 0.0-3.2 Triglycerides 110 mg/dL (Normal) Range: 0-149 VLDL Cholesterol Cesar 22 mg/dL (Normal) Range: 5-40 97-Keo-936839:33 Urine Culture,Comprehensive Comments: PATIENT WAS FASTINGPERFORMED BY: [facility] HospitalDvrrwg1531 [facility] [id number] Antimicrobial MIHEAD (Normal) Comments: S = Susceptible; [...] Enterococcus. (Normal) Urine Final report (Normal) Culture,Comprehensive 7-Lmk-717433:10 HgA1C , Office (14007) HgA1C , Office 5.9 % (Normal) Range: [...] mL (Normal) URINE PROTEIN 20.0 mg/dL (Abnormal) 55-Hzu-579530:17 Urine Culture,Comprehensive Comments: Clinical Information: SRC:UR PERFORMED BY: [employer] [facility] [id number] Result 1 CNSNSS (Normal) Comments: Coagulase negative Staphylococcus species, not Staphylococcussaprophyticus.600 Colonies/mLSusceptibility or resistance of staphylococci to oxacillin predictssusceptibility or resistance to (a) other be ec-irzswwhwt-xeaclzcyzqernhrqq such as cloxacillin and dicloxacillin, (b) combinationsof a penicillin and a beta-lactamase inhibitor, and(c) anti- staphylococcal cephalosporins. Routine testing of otherp enicillins, beta-lactam/beta-lactamase inhibitor combinations,cephems, and carbapenems is not advised by the CLSI Standards(O362-K99, 2005). S = Susceptible; I = Intermediate; R = Resistant * P = Positive; N = Negative MICS are expressed in micrograms per mL Antibiotic RSLT#1 RSLT#2 RSLT#3 RSLT#4Ciprofloxacin RGentami kristian SLevofloxacin RNitrofurantoin SOxacillin SPenicillin RRifampin STrimethoprim/Sulfa SVancomycin S Urine Final report Culture,Comprehensi (Normal) ve 3-Ejo-902340:53 Metabolic Panel, Basic (47615) Comments: PATIENT NOT FASTINGClinical Information: ADD DRAW FEE [id number] ADD J 59950 PERFORMED BY: [employer] [facility] [id number] BUN 39 mg/dL (Abnormal) Range: 5-26 BUN/Creatinine Ratio 33 (Abnormal) Range: 8-27 Calcium, Serum 9.8 mg/dL (Normal) Range: 8.5-10.6 Carbon Dioxide, Total 22 mmol/L (Normal) Range: 20-32 Chloride, Serum 103 mmol/L (Normal) Range: 97-108 Creatinine, Serum 1.20 mg/dL (Abnormal) Range: 0.57-1.00 Glom Filt Rate, Est 45 mL/min/1.73 Range: 60-128 (Abnormal) Glucose, Serum 101 mg/dL (Abnormal) Range: 65-99 If -Togolese 55 mL/min/1.73 Range: 60-128 (Abnormal) Comments: Note: Persistent reduction for 3 months or more in an eGFR<60 mL/min/1.73 m2 defines CKD. Patients with eGFR values>/=60 mL/min/1.73 m2 may also have CKD if evidence of persistentproteinuria is present. Additional information may be found atwww.kdoqi.org. Potassium, Serum 5.1 mmol/L (Normal) Range: 3.5-5.2 Sodium, Serum 139 mmol/L (Normal) Range: 135-145 :09 HgA1C , Office (61663) HgA1C , Office 6.1 % (Normal) Range: 4.6 - 7.1 :09 Blood Glucose , Office (58454) Blood Glucose , Office 163 (Normal) :37 SPINE,LUMBAR (ROUTINE) Radiology Report See Note (Normal) Comments: Exam Number: [id number] MRI LUMBAR SPINE CLINICAL STATEMENTLow back pain [...] onboth sides. Reported By: MODESTA COPE M.D. 66-Ykc-587586:00 [facility] Radiology Report See Note (Normal) Comments: Exam Number: [id number] MAMMOGRAM, BILATERAL SCREENING DIGITAL AND CAD HISTORYRoutine screening. Full field digital images were obtained in mediolateral oblique andcraniocaudal projections. CAD images w ere reviewed. The [facility] A small metal marker is placed [...] mammograms werealso examined with computer-aided detection software ([employer] AYLIEN, Siine.). Reported By: DONNA OJEDA M.D. 86-Pkj-781424:59 DEXA BONE DENSITY STUDY (HP) Radiology Report See Note (Normal) Comments: Exam Number: [id number] BONE DENSITOMETRY HISTORYPost menopausal. TECHNIQUE Bone densitometry [...] Report See Note (Normal) Comments: Exam Number: [id number] FIVE VIEW LUMBAR SPINE AP, lateral, both [...] Randm Ur Comments: PATIENT NOT FASTINGPERFORMED BY: ZhongSou6370 [facility]isnoteAt[facility] [id number] Creatinine, Urine 46.8 mg/dL (Normal) Microalb/Creat Ratio 712.8 {ug/mg_creat} (Abnormal) Range: 0.0-30.0 Microalbum.,U,Random 333.6 ug/mL (Abnormal) Range: 0.0-17.0 :13 Creatinine Clearance Comments: PATIENT NOT FASTINGClinical Information: HT-5'4'' WT-184 PERFORMED BY: [facility] LearningAt[facility] [id number] Creatinine Clearance 40 mL/min (Abnormal) Range: 88-128 Comments: The above range is based on 1.73 square meter average body surfacearea. Creatinine, Serum 1.30 mg/dL (Normal) Range: 0.50-1.50 Creatinine, Ur 24hr 754.8 {mg/24_hr} Range: 800.0-1800.0 (Abnormal) Creatinine, Urine 44.4 mg/dL (Normal) Glom Filt Rate, Est 41 mL/min (Abnormal) Range: 60-128 If -Togolese 50 mL/min (Abnormal) Range: 60-128 Comments: Note: Persistent reduction for 3 months or more in an eGFR<60 mL/min/1.73 m2 defines CKD. Patients with eGFR values>/=60 mL/min/1.73 m2 may also have CKD if evidence of persistentproteinuria is present. .Additional information may be found at www.kdoqi.org. 05-Sep-20079:13 Protein Total, Qn, 24-Hr Comments: PATIENT NOT FASTINGPERFORMED BY: [facility] HospitalWhkyrr8243 [facility] [id number] Urine Protein,Total,Urine 49.0 mg/dL (Abnormal) Range: 0.0-15.0 Prt, 24hr calculated 833.0 {mg/24_hr} (Abnormal) Range: 30.0-150.0 82-Wyk-650931:00 CBCD,SMEAR DIFF CELLS COUNTED 100 (Normal) EOS [...] skin Planned Observations CBC with auto diff (98466)Indication: Diabetes mellitus type II, controlled On: 30-Xwz-094251:22 Request HGB A1C (65809)Indication: Diabetes mellitus type II, controlled On: :21 Request METABOLIC PANEL, COMPREHENSIVE (60756)Indication: Chronic kidney disease, stage 3 On: 29-Yxk-847854:21 Request LIPID PANEL (11976)Indication: Other and unspecified hyperlipidemia On: 77-Mun-884820:21 Request Vitamin D Hydroxy (48570)Indication: Vitamin D deficiency On: 61-Gsy-499420:21 Request PARATHORMONE (86057)Indication: Chronic kidney disease, stage 3 On: 06-Mar-20188:59 Request Comments: fax to [phone] MICROALBUMIN: CREATININE RATIO (67312) AND (84990)Indication: Chronic kidney disease, stage 3 On: 06-Mar-20188:55 Request Comments: fax to [phone] RENAL FUNCTION PANEL (37684)Indication: Chronic kidney disease, stage 3 On: :54 Request Comments: fax to [phone] MAGNESIUM (59933)Indication: Chronic kidney disease, stage 3 On: 06-Mar-20188:54 Request Comments: fax to [phone] Parathyroid Hormone-related Peptide (PTH-rP) (82830)Indication: Chronic kidney disease, stage 3 On: 06-Mar-20188:54 Request Comments: fax to [phone] CBC W/AUTO DIFF WBC (53022)Indication: Chronic kidney disease, stage 3 On: 18-Nth-362643:25 Request Parathyroid Hormone-related Peptide (PTH-rP) (77981)Indication: Vitamin D deficiency On: 8-Hze-544565:43 Request Comments: send results to Dr. Santana fax: [phone] VITAMIN D, 1, 25-DIHYDROXY (44053)Indication: Vitamin D deficiency On: 1-Jxz-997937:42 Request Comments: send results to Dr. Santana fax: [phone] Clostridium difficile Toxin A+B, EIA (74309)Indication: Chronic diarrhea On: 9-Gey-432316:36 Request Vitamin D Hydroxy (47397)Indication: Osteopenia On: 0-Gee-028016:20 Request CBC W/AUTO DIFF WBC (55816)Indication: Hypertension, benign On: 1-Nhv-348192:16 Request CALCIFEDIOL (21237)Indication: Chronic kidney disease, stage 3 On: :04 Request Renal function Panel (10644)Indication: Chronic kidney disease, stage 3 On: :04 Request Magnesium (53039)Indication: Chronic kidney disease, stage 3 On: :04 Request MICROALBUMIN: CREATININE RATIO (94855) AND (65638)Indication: Chronic kidney disease, stage 3 On: :04 Request Parathyroid Hormone-related Peptide (PTH-rP) (44997)Indication: Chronic kidney disease, stage 3 On: :04 Request T4, FREE (THYROXINE) (17348)Indication: Cold feeling On: :31 Request TSH (09332)Indication: Cold feeling On: :31 Request PARATHORMONE (37267)Indication: Chronic kidney disease, stage 3 On: 34-Ums-07775:18 Request Comments: copy to Dr. Santana [phone] CALCIFIDIOL (01029) VIT D 25Indication: Chronic kidney disease, stage 3 On: 81-Uqg-64514:16 Request Comments: copy to Dr. Santana [phone] MAGNESIUM (46491)Indication: Chronic kidney disease, stage 3 On: 69-Rdr-58713:15 Request Comments: copy to Dr. Santana [phone] PROTEIN/CREAT RATIO, URINE (98951)Indication: Chronic kidney disease, stage 3 On: 87-Wuv-89661:15 Request Comments: copy to Dr. Santana [phone] LIPID PANEL (98671)Indication: Mixed hyperlipidemia On: 45-Mtc-621062:21 Request CBC with auto diff (24988)Indication: Diabetes mellitus type II, controlled On: 19-Yft-785503:20 Request METABOLIC PANEL, COMPREHENSIVE (48387)Indication: Diabetes mellitus type II, controlled On: 92-Cep-556372:20 Request HGB A1C (65541)Indication: Diabetes mellitus type II, controlled On: 22-Mvr-413765:10 Request Vitamin D Hydroxy (01739)Indication: Osteopenia On: 04-Pgs-541345:08 Request TSH (THYROID STIMULATING HORMONE) (61826)Indication: Depression On: 13-Mke-789900:06 Request LIPID PANEL (95807)Indication: Other and unspecified hyperlipidemia On: 41-Gzn-402571:06 Request CBC with auto diff (29961)Indication: Diabetes mellitus type II, controlled On: 73-Ylh-682132:06 Request METABOLIC PANEL, COMPREHENSIVE (56539)Indication: Diabetes mellitus type II, controlled On: 53-Ffs-821156:06 Request CREATININE CLEARANCE (70050)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 On: 9-Anv-457649:38 Request Total Protein,24 Hour Urine (46292)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 On: 3-Ldh-171038:38 Request CBC W/AUTO DIFF WBC (34827)Indication: Diabetes mellitus type II, controlled On: 92-Ngo-283020:11 Request HgA1C , Office (79808)Indication: Diabetes mellitus type II, controlled On: 62-Yhl-055707:23 Request CULTURE, SPUTUM (14491)Indication: Cough On: 74-Vmt-420385:47 Request HEPATIC FUNCTION PANEL (19928)Indication: Elevated LFTs On: 41-Ttm-73705:24 Request CREATININE CLEARANCE (89547)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 On: 28-Bty-65166:33 Request 24 hour urine for Protein (42559)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 On: :33 Request CBC WITH MANUAL DIFF (10976)Indication: Diabetes mellitus type II, controlled On: :29 Request METABOLIC PANEL, COMPREHENSIVE (70173)Indication: Diabetes mellitus type II, controlled On: 51-Nzu-921168:29 Request LIPID PANEL (68675)Indication: Mixed hyperlipidemia On: 12-Xab-539887:29 Request CREATININE CLEARANCE (73639)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 On: 9-Erg-312815:45 Request 24 hour urine for Protein (26870)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 On: 6-Min-667824:45 Request CREATININE CLEARANCE (13519)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 On: 26-Ilz-277071:57 Request 24 hour urine for Protein (69307)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 On: 22-Feb-570009:57 Request METABOLIC PANEL, COMPREHENSIVE (40501)Indication: Hypertension, benign On: :32 Request LIPID PANEL (54114)Indication: Mixed hyperlipidemia On: :32 Request C-REACTIVE PROTEIN (57323)Indication: Fatigue On: :24 Request SED RATE ERYTHROCYTE (51286)Indication: Headache On: :24 Request VITAMIN B-12 (CYANOCOBALAMIN) (81331)Indication: Fatigue On: :24 Request LIPID PANEL (26855)Indication: Mixed hyperlipidemia On: :41 Request CBC WITH MANUAL DIFF (71349)Indication: Hypertension, benign On: :41 Request METABOLIC PANEL, COMPREHENSIVE (83373)Indication: Hypertension, benign On: :41 Request CREATININE CLEARANCE (29190)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 On: :34 Request 24 hour urine for Protein (17890)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 On: 7-Hrk-788348:34 Request LIPID PANEL (83127)Indication: Mixed hyperlipidemia On: 1-Brp-050899:22 Request HEPATIC FUNCTION PANEL (29787)Indication: Mixed hyperlipidemia On: 3-Tlt-624270:22 Request Vitamin D Hydroxy (31505)Indication: Hypercalcemia On: 0-Uer-708248:22 Request PHOSPHORUS (27417)Indication: Hypercalcemia On: 7-Pis-462837:22 Request PARATHORMONE (15668)Indication: Hypercalcemia On: 0-Mjy-740439:22 Request METABOLIC PANEL, COMPREHENSIVE (80747)Indication: Hypercalcemia On: 3-Udg-689922:22 Request CBC WITH MANUAL DIFF (06001)Indication: fsgs On: 8-Mag-281766:58 Request LIPID PANEL (93569)Indication: Mixed hyperlipidemia On: 2-Qzu-027729:58 Request METABOLIC PANEL, COMPREHENSIVE (28849)Indication: Hypertension, benign On: 4-Ygy-267353:58 Request Blood Glucose , Office (39185)Indication: Diabetes mellitus type II, controlled On: 0-Ovw-799162:10 Request TSH (27966)Indication: Diabetes mellitus type II, controlled On: 29-Jbh-291814:51 Request METABOLIC PANEL, COMPREHENSIVE (35529)Indication: Diabetes mellitus type II, controlled On: :51 Request CBC WITH MANUAL DIFF (18792)Indication: Diabetes mellitus type II, controlled On: :51 Request MICROALBUMIN: CREATININE RATIO (77980) AND (92849)Indication: Diabetes mellitus type II, controlled On: :51 Request HEPATIC FUNCTION PANEL (20074)Indication: Other and unspecified hyperlipidemia On: :51 Request LIPID PANEL (44429)Indication: Other and unspecified hyperlipidemia On: 51 Request HgA1C , Office (63308)Indication: Diabetes mellitus type II, controlled On: :37 Request Blood Glucose , Office (25845)Indication: Diabetes mellitus type II, controlled On: :37 Request Planned Procedures DRAIN/INJECT MAJOR JOINT OR BURSA On: 13-Mar-2018 Intent ()By: SHONDA Andrade Comments: 2 cc Marcaine lot# [id number] exp: 1 cc Kenalog lot# [id number] exp DRAIN/INJECT MAJOR JOINT OR BURSA On: 07-Feb-2018 Intent ()By: Keri Singh MD Comments: lot no [id number] exp date 2017-12-26 DRAIN/INJECT MAJOR JOINT OR BURSA On: 31-Jan-2018 Intent ()By: Keri Singh MD Comments: Lot#[id number]:intra articular Site given:left knee Given By: Dr. Singh [facility] signed DRAIN/INJECT MAJOR JOINT OR BURSA On: 24-Jan-2018 Intent ()By: Keri Singh MD Comments: Lot#[id number]: [id number]:intra artciular Site given:left knee Given By: Dr. Singh ABN signed Euflexxa Echo CompleteBy: Fast DO, Chaparrita A On: 16-Dec-2017 Intent Fast DO, Chaparrita A Flu Vaccine (Quadrivalent) 24563Gw: On: 16-Dec-2017 Intent Fast DO, Chaparrita A Fast DO, Chaparrita A Comments: Lot: [id number]: 10/01/18Site: L dltd, IMDose prefilled syringegiven by: Jamie reviewed and ABN signed Kenalog Injection, 10 mgm On: 03-Oct-2017 Intent (J3301)By: Keri Singh MD Comments: lot: [id number]: 11/20site/route: L knee Cartoid DopplerBy: Fast DO, Chaparrita A On: 12-Sep-2017 Intent Fast DO Chaparrita A Comments: november DIGITAL TOMOSYNTHESIS OF On: 12-Sep-2017 Intent BREAST (51283)By: Case Albrecht DOa A Comments: due november 02 Ambrocio WOLFF, Chaparrita A Kenalog Injection, 10 mgm On: 06-Jun-2017 Intent (J3301)By: Keri Singh MD Comments: bupivacacine 0.5% [id number] exp 09-20 kenalog 40 mg injected in. CII5098 07-21 MRI OF BRAIN WITH AND WITHOUT On: 06-Jun-2017 Intent CONTRAST (42027)By: Case Albrecht DOa A Fast DO, Chaparrita A ELECTROCARDIOGRAM, COMPLETE (ECG) On: 06-Jun-2017 Intent (04243)By: Ambrocio WOLFF Chaparrita A Fast Comments: ekg [...] 10-May-2017 Intent 1000 CC (Special Coverage Comments: lot:[id number]:IV left anticub dose:1000ml given by:eliazar HUMPHREY signedER, CRUSHER AND BLENDER OPERATOR Instructions Apply. See [facility]: 2048) (J7030)By: Ambrocio WOLFF Chaparrita A Fast DO, Chaparrita A Radiology - Chest- PA and LatBy: On: 05-May-2017 Intent Keri Singh MD Aerosol Treatment (76257)By: On: 05-May-2017 Intent Keri Singh MD Radiology - ChestBy: Francisco MANN, On: 05-May-2017 Intent Keri Alonzo Comments: call wet read DRAIN/INJECT MAJOR JOINT OR BURSA On: 28-Feb-2017 Intent ()By: Keri Singh MD Comments: 1 cc Kenelog #[id number] cc Marcaine #[id number] Kenalog Injection, 10 mgm On: 28-Feb-2017 Intent (J3301)By: Keri Singh MD ELECTROCARDIOGRAM, COMPLETE (ECG) On: 10-Jan-2017 Intent (88872)By: Chaparrita Albrecht DO Comments: ekg showed normal sinus rhythym, normal axis, no acute st/t wave changes Chaparrita WOLFF Flu Vaccine (Quadrivalent) 24938Sq: On: 27-Dec-2016 Intent SHONDA Andrade DRAIN/INJECT MAJOR JOINT OR BURSA On: 20-Aug-2016 Intent ()By: Keri Singh MD DRAIN/INJECT MAJOR JOINT OR BURSA On: 13-Aug-2016 Intent ()By: SHONDA Andrade Comments: lot: [id number]:intra articular dose:2ml given by:Dr. Francisco HUMPHREY signedER, CRUSHER AND BLENDER OPERATOR injection #3 DOPPLER ULTRASOUND OF RIGHT CAROTID On: 10-Aug-2016 Intent ARTERY (27582)By: Case Albrecht DOa A Comments: end of october Ambrocio DO, Chaparrita A DEXA SCAN AXIAL SKELETON (22663)By: On: 10-Aug-2016 Intent Ambrocio WOLFF Chaparrita A Fast DO, Chaparrita A Comments: end october SCREENING DIGITAL TOMOSYNTHESIS OF On: 10-Aug-2016 Intent BREAST (54824)By: Case Albrecht DOa A Comments: end of october Ambrocio WOLFF, Chaparrita A DRAIN/INJECT MAJOR JOINT OR BURSA On: 06-Aug-2016 Intent ()By: Keri Singh MD DRAIN/INJECT INTERMED JOINT/BURSA On: 06-Aug-2016 Intent ()By: SHONDA Andrade Comments: lot:[id number]:left knee dose:2mlgiven by:Dr. Francisco HUMPHREY signedER, CRUSHER AND BLENDER OPERATOR injection number 2 Venous Doppler - LeftBy: Ambrocio WOLFF, On: 03-Aug-2016 Intent Chaparrita A Fast DO, Chaparrita A Comments: This is set up for August 05 at 11am- spoke with Rina in cv. DRAIN/INJECT INTERMED JOINT/BURSA On: 30-Jul-2016 Intent ()By: Keri Singh MD Comments: lot:[id number]:intra articular left knee dose: 2ml given by: Dr. Singh ABN signedER, CRUSHER AND BLENDER OPERATOR injection #1 Radiology - Knee - LeftBy: Fast DO, On: 26-May-2016 Intent Chaparrita A Fast DO, Chaparrita A Flu Vaccine (Quadrivalent) 35191Bc: On: 27-Jan-2016 Intent Fast DO, Chaparrita A Fast DO, Chaparrita A Comments: Lot #:[id number] date:10/01/16mount given:0.5mlRoute: IMSite given: left deltoidGiven by: CARMELINA Hook [employer] [facility] INFLUENZA VIRUS On: 27-Jan-2016 Intent VACCINE (G0008)By: Fast DO, Chaparrita A Fast DO, Chaparrita A DOPPLER ULTRASOUND OF RIGHT CAROTID On: 22-Oct-2015 Intent ARTERY (45476)By: Fast DO, Chaparrita A Fast DO, Chaparrita A MAMMOGRAM, SCREENING, BOTH BREAST On: 22-Oct-2015 Intent (02251)By: Fast DO, Chaparrita A Fast DO, Chaparrita A Ultrasound - RenalBy: Fast DO, On: 14-Jul-2015 Intent Chaparrita A Fast DO, Chaparrita A Radiology - Knee - Left - Weight On: 11-Mar-2015 Intent BearingBy: Fast DO, Chaparrita A Fast DO, Chaparrita A Radiology - Knee - Right - Weight On: 11-Mar-2015 Intent BearingBy: Fast DO, Chaparrita A Fast DO, Chaparrita A Flu Vaccine (Quadrivalent) [id number]: On: 11-Feb-2015 Intent Fast DO, Chaparrita A Fast DO, Chaparrita A EKG ([id number])By: Fast DO, Chaparrita A On: 05-Nov-2014 Intent Fast DO, Chaparrita A Comments: ekg showed normal sinus rhythym, normal axis, no acute st/t wave changes left axis DRAIN/INJECT SMALL JOINT OR BURSA On: 07-Oct-2014 Intent ()By: Keri Singh MD MAMMOGRAM, SCREENING, BOTH BREAST On: 02-Aug-2014 Intent ([id number])By: Chaparrita Albrecht DO Comments: Chaparrita estes DO A Cartoid DopplerBy: Ambrocio DO Chaparrita A On: 02-Aug-2014 Intent Ambrocio DO Chaparrita A DEXA SCAN AXIAL SKELETON ([id number])By: On: 09-Apr-2014 Intent Ambrocio WOLFF, Chaparrita A Fast DO, Chaparrita A Prevnar 13 ([id number])By: Ambrocio WOLFF, On: 30-Jan-2014 Intent Chaparrita Albrecht DO, Chaparrita A Comments: Lot:[id number]:05/20Dose:0.5Route:imSite:l armGiven By:Jarred signed FLU VAC, SPLIT, >3 YEARS, INTRAMUSC On: 16-Jan-2014 Intent ([id number])By: Chaparrita Albrecht DO Comments: Lot #:[id number] date:12/2015Amount given:0.5mlRoute: IMSite given: left deltoidGiven by: CARMELINA Hook DO Chaparrita A ADMINISTRATION OF INFLUENZA VIRUS On: 16-Jan-2014 Intent VACCINE (G0008)By: Chaparrita Albrecht DO, DO, Chaparrita A EKG ([id number])By: Chaparrita Albrecht DO A On: 17-Oct-2013 Intent Ambrocio WOLFF Chaparrita A Comments: ekg showed normal sinus rhythym, left axis, no acute st/t wave changes Radiology - Chest- PA and LatBy: On: 17-Sep-2013 Intent Ambrocio WOLFF Chaparrita A Ambrocio DO, Chaparrita A Aerosol Treatment ([id number])By: Ambrocio On: 17-Sep-2013 Intent Chaparrita WOLFF A Ambrocio DO, Chaparrita A MRI - BrainBy: Ambrocio WOLFF Chaparrita A On: 22-Jul-2013 Intent Ambrocio DO, Chaparrita A Cartoid DopplerBy: Ambrocio DO Chaparrita A On: 20-Jul-2013 Intent Ambrocio WOLFF Chaparrita A MAMMOGRAM, SCREENING, BOTH BREASTS On: 20-Jul-2013 Intent ([id number])By: Chaparrita Albrecht DO DO, Chaparrita A Eprescribed prescriptions On: 20-Jul-2013 Intent ([id number])By: Chaparrita Albrecht DO DO, Chaparrita A Eprescribed prescriptions On: 02-Feb-2013 Intent ([id number])By: Марина Concepcion FLU VAC, SPLIT, >3 YEARS, INTRAMUSC On: 03-Jan-2013 Intent ([id number])By: Марина Concepcion Comments: Lot #:[id number] date:mount given:0.5mlRoute: IMSite given: L dltdVIS and ABN signedGiven by: CARMELINA Hook ADMINISTRATION OF INFLUENZA VIRUS On: 03-Jan-2013 Intent VACCINE (G0008)By: Марина Concepcion CT - Abdomen & Pelvis (IV Contrast On: 17-Oct-2012 Intent Needed)By: Chaparrita Albrecht DO Comments: patient will be calling to set up DO Chaparrita A Eprescribed prescriptions On: 10-Oct-2012 Intent (G8553)By: Марина Concepcion Ear Irrigation ([id number])By: [place], On: 13-Jun-2012 Intent Ivy Comments: Ear Irrigation performed on: right earAmount/color removed cerumen: light brown, small amount removedOUtcome:Pt toleratedUsed wax curettes Wax Currettes ([id number])By: Rome, On: 13-Jun-2012 Intent Ivy PNEUM VAC ADLT/IMUMNOSPR, SBC/INTRM On: 13-Jun-2012 Intent ([id number])By: Chaparrita Albrecht DO Comments: Lot:[id number]:09/09/13Dose:0.5mLRoute:IMSite:L armGiven By:BHUMI signed Chaparrita WOLFF A EKG ([id number])By: Chaparrita Albrecht DO On: 13-Jun-2012 Intent Chaparrita [...] MAMMOGRAM, SCREENING, BOTH BREASTS On: 28-Dec-2011 Intent ([id number])By: Fast DO, Chaparrita A Fast DO, Chaparrita A DXA, BONE DENSITY, AXIAL SKELETON On: 28-Dec-2011 Intent ([id number])By: Fast DO, Chaparrita A Fast DO, Chaparrita [...] SPLIT, >3 YEARS, INTRAMUSC On: 28-Dec-2011 Intent ([id number])By: Марина Concepcion Comments: Lot #:[id number] date:mount given:0.5mlRoute: IMSite given: left deltoidGiven by: CARMELINA Hook ADMINISTRATION OF INFLUENZA VIRUS On: 28-Dec-2011 Intent VACCINE (G0008)By: Марина Concepcion Aerosol Treatment ([id number])By: Ciesa On: 30-Nov-[address] - Abdomen & PelvisBy: Fast DO, On: 21-Sep-2011 Intent Chaparrita A Fast DO, Chaparrita A Comments: with special cuts through the kidney- october EKG ([id number])By: Марина Concepcion On: 15-Jun-2011 Intent Comments: ekg [...] Comments: Call results to Dr. Albrecht @ [phone] as soon as resulted please. DO, Chaparrita A Eprescribed prescriptions On: 11-Jan-2011 Intent (G8553)By: Fast DO, Chaparrita A Fast DO, Chaparrita A MAMMOGRAM, SCREENING, BOTH BREASTS On: 11-Jan-2011 Intent ([id number])By: Fast DO, Chaparrita A Fast DO, Chaparrita A CT - Sinuses CompleteBy: Fast DO, On: 11-Jan-2011 Intent Chaparrita A Fast DO, Chaparrita A Cartoid DopplerBy: Fast DO, Chaparrita A On: 11-Jan-2011 Intent Fast DO, Chaparrita A ADMINISTRATION OF INFLUENZA VIRUS On: 11-Jan-2011 Intent VACCINE ([id number])By: Марина Concepcion FLU VAC, SPLIT, >3 YEARS, INTRAMUSC On: 11-Jan-2011 Intent ([id number])By: Марина Concepcion Eprescribed prescriptions On: 12-Oct-2010 Intent ([id number])By: Ambrocio DO, Chaparrita A Fast DO, Chaparrita A Renal DopplerBy: Fast DO, Chaparrita A On: 12-Oct-2010 Intent Fast DO, Chaparrita A Cartoid DopplerBy: Fast DO, Chaparrita A On: 12-Oct-2010 Intent Fast DO, Chaparrita A Comments: sept TDAP VACCINE >7 IM ([id number])By: On: 13-May-2010 Intent Helena Tineo LPN Comments: Lot #[id number]/13Site-left deltoidgiven by:[facility] EKG ([id number])By: Марина Concepcion On: 13-May-2010 Intent Comments: ekg showed normal sinus rhythym, normal axis, no acute st/t wave changes Aerosol Treatment ([id number])By: Charlene On: 22-Dec-2009 Intent [facility], Johanna Espinal DopplerBy: Fast DO, Chaparrita A On: 01-Dec-2009 Intent Fast DO, Chaparrita A MAMMOGRAM, SCREENING, BOTH BREASTS On: 01-Dec-2009 Intent ([id number])By: Fast DO, Chaparrita A Fast DO, Chaparrita A DXA, BONE DENSITY, AXIAL SKELETON On: 01-Dec-2009 Intent ([id number])By: Fast DO, Chaparrita A Fast DO, Chaparrita A Ultrasound - SpleenBy: Fast DO, On: 17-Jun-2009 Intent Chaparrita A Fast DO, Chaparrita A EKG ([id number])By: Марина Concepcion On: 10-Mar-2009 Intent Comments: ekg showed normal sinus rhythym, normal axis, no acute st/t wave changes FLU VAC, SPLIT, >3 YEARS, INTRAMUSC On: 09-Jan-2009 Intent ([id number])By: Stacy Jorge Comments: Lot #[id number]-left deltoidDose0.5mlgiven by Marycarmen Jorge LPN ADMINISTRATION OF INFLUENZA VIRUS On: 09-Jan-2009 Intent VACCINE (G0008)By: Stacy Joreg MAMMOGRAM, SCREENING, BOTH BREASTS On: 04-Dec-2008 Intent ([id number])By: Fast DO, Chaparrita A Fast DO, Chaparrita A MAMMOGRAM, SCREENING, BOTH BREASTS On: 03-Sep-2008 Intent ([id number])By: Fast DO, Chaparrita A Fast DO, Chaparrita A FLU VAC, SPLIT, >3 YEARS, INTRAMUSC On: 16-Jan-2008 Intent ([id number])By: Janet Scherer RN Comments: Lot #: [id number] date: 09/10Amount given: 0.5 mlRoute: IMSite given: Left deltoidGiven by: Olivia Bell LPN ADMINISTRATION OF INFLUENZA VIRUS On: 16-Jan-2008 Intent VACCINE (G0008)By: Janet Scherer RN EKG ([id number])By: Ambrocio DO, Chaparrita A On: 29-Aug-2007 Intent Fast DO, Chaparrita A Comments: done km ADMINISTRATION OF PNEUMOCOCCAL On: 29-Aug-2007 Intent VACCINE (G0009)By: Fast DO, Chaparrita A Fast DO, Chaparrita A PNEUM VAC ADLT/IMUMNOSPR, SBC/INTRM On: 29-Aug-2007 Intent ([id number])By: Fast DO, Chaparrita A Fast Comments: 0.5cc given im lt arm [id number] exp 02-13-08 DO, Chaparrita A DXA, BONE DENSITY, AXIAL SKELETON On: 29-Aug-2007 Intent ([id number])By: Fast DO, Chaparrita A Fast DO, Chaparrita A MAMMOGRAM, SCREENING, BOTH BREASTS On: 29-Aug-2007 Intent ([id number])By: Fast DO, Chaparrita A Fast DO, Chaparrita [...] new people and be involved in the confucianism 0 bps are good and sugar looking [...] medical issues: she has been working with [employer] and trying to work on that- she got rid of respiratory infection but was sick for weeks and was on pred so her sugar up and chol up a bit- trying to add protein shakes drink more water- she is starting back at [facility]- diarrhea resolved- we did talk about going [...] that she had episode where went to [facility] and she couldnt remember where she was- and happened one other time where she didnt recognize the roads- sister had alzheimer s- weight down because was sick- but coming back up- she hasnt done counseling with hospice has been thru before- she lonely- not necessarily unhappy- she doing self help she is singing with confucianism- -rodriguez gars are all in low 100s-130- going to [employer] for a month next monthEncounter Diagnosis: Nonsmoker, [...] Eddie and bp is good she joined [employer] sugar up bit doi ng ice cream-the bone density reviewed little thinner she not exercising routienly until just recent at [employer] and sees kidney doc next week and [...] maribel yfriend in hospice - going to longterm end of month- too much to care [...] Patient sleeps 8 hours per night. Nutrition: [facility] diet. The medical issues the patient [...] visual acuity (yearly). Note for Physical exam: [facility] Wellness Physical- Talk about trying Myrbetriq., [ADDITIONAL REASON] Follow up, Laboratory Test Results - Date: (09/2015- [facility] labs). , [ADDITIONAL REASON] Itching [...] stenosis, asymptomatic, right, Hypertension, benign, Colon Polyp, [facility] WELLNESS PHYSICAL, Osteopenia (733.90), Pruritus, [...] Meningioma (Renamed from 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, 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, BRAIN/PARTNER ALLIANCE MANAGER NEC (794.09)) [facility] Visit [...] Meningioma (Renamed from 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, 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, BRAIN/PARTNER ALLIANCE MANAGER NEC (794.09)), Diabetes, Type II, controlled (250.00), [...] cant take byetta due to cost in [facility]- - takes ??lorazepam 1-2 times a week [...] Meningioma (Renamed from 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, 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, BRAIN/PARTNER ALLIANCE MANAGER NEC (794.09)), Colon Polyp [facility] [...] Meningioma (Renamed from 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, 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, BRAIN/PARTNER ALLIANCE MANAGER NEC (794.09)), OCCLUSION AND STENOSIS OF CAROTID [...] Meningioma (Renamed from 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, 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, BRAIN/PARTNER ALLIANCE MANAGER NEC (794.09)), Chronic glomerulonephritis with lesion of [...] Meningioma (Renamed from 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, 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, BRAIN/PARTNER ALLIANCE MANAGER NEC (794.09)), Other and unspecified hyperlipidemia (272.4), [...] Meningioma (Renamed from 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, 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, BRAIN/PARTNER ALLIANCE MANAGER NEC (794.09)) [facility] Visit [...] Meningioma (Renamed from 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, 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, BRAIN/PARTNER ALLIANCE MANAGER NEC (794.09)), Gerd (530.81), Hyperlipidemia, Unspecified (272.4), [...] Meningioma (Renamed from 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, 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, BRAIN/PARTNER ALLIANCE MANAGER NEC (794.09)), Hypertension,benign(401.1), OCCLUSION AND STENOSIS OF [...] Meningioma (Renamed from 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, 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, BRAIN/PARTNER ALLIANCE MANAGER NEC (794.09)), Diabetes, Type II, controlled (250.00), [...] Meningioma (Renamed from 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, 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, BRAIN/PARTNER ALLIANCE MANAGER NEC (794.09)), Hypertension,benign(401.1), Osteopenia (733.90), Depression (311.), [...] weight down 23 pounds- and trying joined [employer]- she feels well - she increased celexa [...] Meningioma (Renamed from 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, 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, BRAIN/PARTNER ALLIANCE MANAGER NEC (794.09)), Chronic glomerulonephritis with lesion of [...] Meningioma (Renamed from 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, 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, BRAIN/PARTNER ALLIANCE MANAGER NEC (794.09)) End: 26-Jan-2011 16:53 [facility] Office Visit On: 19-Jan-2011 14:30 Encounter Diagnosis: brain tumor End: 21-Sep-2011 8:09 [facility] Phone Encounter On: 19-Jan-2011 13:41 Encounter Diagnosis: 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, 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, BRAIN/PARTNER ALLIANCE MANAGER NEC (794.09) End: 19-Jan-2011 13:44 [facility] [...] again -- she is getting surgery on [facility]-- her bps have been running 90s at [...] (V04.81), Degenerative Disc Disease - Lumbar (722.52), [facility] [place] [facility] Visit On: 06-Dec-2007 [...] WITH RADICULOPATHY (724.4) [facility] Payers MedicareAA/[facility]; olivia guarantor
--- OUTSIDE RECORDS SUMMARY | 2018-06-25 21:41 | XMS RPT_ITS | Continuity of Care Document ---
:1940 Author Organization [facility] Address [address] [place] [address] Phone Care Team Providers Name Role Phone Chaparrita Albrecht DO Unavailable Dr. Marcus Caldera Unavailable Inna Reynoso Unavailable Unavailable Keri Singh MD Unavailable Марина Concepcion Unavailable Unavailable SHONDA Andrade [...] anus?? 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 Angelo disla Coreg 25 MG Oral Tablet 1/2 Tablet bid for 0 days Quantity: 90 {Tablet} Refills: 3 Ordered:17-Nov-2017 Fast DO, Chaparrita AFast DO, Chaparrita A Start : 17-Nov-2017 Active FreeStyle Lite Test In Vitro Strip 1 (one) Strip bid for 0 days Quantity: 100 {Strip} Refills: 5 Ordered:20-Feb-2018 Fast DO, Chaparrita AFast DO, Chaparrita A Start : 20-Feb-2018 Active Comments:Dx:250.00patient is NOT insulin dependant Hydrocodone-Acetaminophen 5-325 MG Oral Tablet 1 to 2 Tablet q 6hrs, prn for 0 days Quantity: 60 {Tablet} Refills: 0 Ordered:16-Dec-2017 Fast DO, Chaparrita AFast DO, Chaparrita A [...] DO, Chaparrita A Start : 22-Mar-2018 Active Comments:[id number] 09/20 Victoza 18 MG/3ML Subcutaneous Solution Pen-injector [...] days Quantity: 6 {Tablet} Refills: 0 Ordered:09-Jan-2009 Katringabrielolivia SANZJohanna Start : 09-Jan-2009 End : 13-Jan-2009 [...] spray daily for 0 days Quantity: 1 {Vale} Refills: 0 Ordered:04-May-2016 SHONDA Andrade Start : [...] Tablet qd for 0 days Refills: 0 Ordered:2-Sep-2009 Fast DO, Chaparrita AFast DO, Chaparrita A [...] and dispense 8 ounes TOTAL mixed solutionCal [id number] if questions SPECTAZOLE, 1% (External Cream) 1 [...] 90 days Refills: 3 Ordered:14-Jul-2015 Chaparrita Albrecht DO AFast DO, Chaparrita A Start : 14-Jul-2015 End : 14-Jul-2015 Discontinued ZETIA, 10MG (Oral Tablet) 1 tab qd for 0 days Refills: 0 Ordered:06-Dec-2007 Марина Concepcion End : 06-Dec-2007 Discontinued ZOLOFT, 50MG (Oral Tablet) 2 (two) Tablet daily for 0 days Quantity: 60 {Tablet} Refills: 3 Ordered:20-Jul-2013 Fast , Chaparrita AFast DO, Chaparrita A Start : 20-Jul-2013 End : 20-Jul-2013 Discontinued ZOLPIDEM TARTRATE, 10MG (Oral Tablet) 1 (one) Tablet Tablet qhs prn for 0 days Quantity: 30 {Tablet} Refills: 0 Ordered:11-Feb-2015 Марина Concepcion Start : 30-Aug-2014 End : 11-Feb-2015 Discontinued Comments:th[age], [facility] Allergies and Adverse Reactions Name Dates [...] Meningioma (Renamed from 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, 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, BRAIN/CADDYMASTER NEC) (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 2016 right Cholecystectomy Completed lumbar acaibi==8782 Completed Tonsillectomy Completed Date Value Details 19-Dec-2017 Echocardiogram Complete Result: Comments: See Note; NOTES: [facility] Cardiovascular Services [address] [place] [address] Echo Complete 12/19/17 0800 MR#: [id number] Acct: [id number] Name: CLARENCE ALBERT ep #: [id number] : 1940 77 From: Chuckie Cormier MD Attending Dr: Chaparrita Albrecht DO Status: REG CLI Ordering Dr: Chaparrita Albrecht DO Date: 12/19/17 Location: [facility] Sex: F C Admitted: Reason For [...] Dictated: 12/19/17 0800 Date Transcribed: 12/19/17 1022 Party Plan Sales Director: Signed 07-Dec-2017 Carotid Duplex Ultrasound Result: Comments: See Note; NOTES: [facility] Cardiovascular Services [address] [place] [address] Carotid Duplex Ultrasound 12/06/17 0901 MR#: [id number] Acct: [id number] Name: CLARENCE WHITTINGTON Rep #: [id number] : 1940 77 From: Anurag Loya MD [...] the left vertebral artery. Procedure Carotid Duplex 25116. Exam performed in department. Interpretation Summary Mild (<50%) stenosis right extracranial internal carotid. Mild (<50%) stenosis left extracranial internal carotid. Flow within the vertebral arteries is antegrade bilaterally. __ __ Ordering Physician: Chaparrita Albrecht Performed By: Margot Benton RVT and Student 12/07/17 0809 Date Anurag Loya MD CC: Chaparrita Albrecht DO Date Dictated: 12/06/17900 Date Transcribed: 12/07/17808 Party Plan Sales Director: Signed 06-Dec-2017 SCREENING MAMM (CAD), BILAT Result: Comments: See Note; NOTES: [facility] Imaging Services [address] [place] [address] SCREENING MAMM (CAD), BILAT MR#: [id number] Acct: [id number] Name: CLARENCE ALBERT Rep #: [id number] : 1940 F 77 From: Misael Hebert MD PCP: Chaparrita Albrecht DO Status: REG CLI Study: SCREENING MAMM (CAD), BILAT Date of Exam: 12/06/17 Exam# [id number] Ordering Dr: Chaparrita Albrecht DO MAMM OGRAPHY [...] delay biopsy of a clinically suspicious abnormality. [id number] Electronically Signed: Misael Hebert MD at 15:31 EDT Tel [phone], Se rvice support , CC: Chaparrita Albrecht DO Party Plan Sales Director: Signed 10-Jun-2017 Brain W/WO Contrast Result: Comments: See Note; NOTES: [facility] Imaging Services [address] [place] [address] Brain W/WO Contrast MR#: [id number] Acct: [id number] Name: CLARENCE ALBERT Rep #: [id number] : 1940 F 77 From: Laya Montilla MD PCP: Chaparrita Albrecht DO Status: REG CLI Study: Brain W/WO Contrast Date of Exam: 06/10/17 Exam# [id number] Ordering Dr: Chaparrita Albrecht DO STUDY: MRI [...] Service support , CC: Chaparrita Albrecht DO Party Plan Sales Director: Signed 05-May-2017 Chest PA and Lateral Result: Comments: See Note; NOTES: [facility] Imaging Services [address] [place] [address] Chest PA and Lateral MR#: [id number] Acct: [id number] Name: CLARENCE ALBERT Rep #: [id number] : 1940 F 77 From: Edwar Patino MD PCP: Chaparrita Albrecht DO Status: REG CLI Study: Chest PA and Lateral Date of Exam: 05/05/17 Exam# [id number] Ordering Dr: Keri Singh MD STUDY: X-RAY [...] CC: Keri Singh MD; Chaparrita Albrecht DO Party Plan Sales Director: Signed 02-Nov-2016 Dexa Bone Density Study (HP) Result: Comments: See Note; NOTES: [facility] Imaging Services [address] [place] [address] Verdana 4d Dexa Bone Density Study (HP) MR#: [id number] Acct: [id number] Name: LYNNE ALBERT Rep #: [id number] : 1940 F 76 From: Misael Hebert MD PCP: Chaparrita Albrecht DO Status: REG CLI Study: Dexa Bone Density Study (HP) Date of Exam: 11/02/16 Exam# [id number] Ordering Dr: Laura DO STUDY: DUAL ENERGY [...] Misael Hebert MD at 11:02 EDT Tel [phone], Service support , CC: Chaparrita Albrecht DO Party Plan Sales Director: Signed 02-Nov-2016 SCREENING MAMM (CAD), BILAT Result: Comments: See Note; NOTES: [facility] Imaging Services [address] [place] [address] Verdana 4d SCREENING MAMM (CAD), BILAT MR#: [id number] Acct: [id number] Name: CLARENCE ALBERT Rep #: [id number] : 1940 F 76 From: Misael Hebert MD PCP: Chaparrita Albrecht DO Status: REG CLI Study: SCREENING MAMM (CAD), BILAT Date of Exam: 11/02/16 Exam# [id number] Ordering Dr: Case Albrecht DO MAMMOGRAPHY - [...] delay biopsy of a clinically suspicious abnormality. [id number] Electronically Signed: Misael Hebert MD at 12:44 EDT Tel [phone], Service support , CC: Chaparrita Albrecht DO Party Plan Sales Director: Signed 05-Aug-2016 Venous Duplex Lower Extremity Result: Comments: See Note; NOTES: [facility] Cardiovascular Services [address] [place] [address] Venous Duplex US, Unilateral 08/05/16 1053 MR#: [id number] Acct: [id number] Name: CLARENCE WEI Rep #: [id number] : 1940 76 From: Elvin Natarajan MD [...] Margot Benton RVT 08/05/16 1127 Date Elvin Naatrajan MD CC: Chaparrita Albrecht DO Date Dictated: 08/05/16 1053 Date Transcribed: 08/05/16 1127 Party Plan Sales Director: Signed 27-May-2016 Knee 4 or More Views Result: Comments: See Note; NOTES: [facility] Imaging Services [address] [place] [address] Verdana 4d Knee 4 or More Views MR#: [id number] Acct: [id number] Name: CLARENCE ALBERT Rep #: [id number] : 1940 F 76 From: Misael Hebert MD PCP: Chaparrita Albrecht DO Status: REG CLI Study: Knee 4 or More Views Date of Exam: 05/27/16 Exam# [id number] Ordering Dr: Kylah Linda DO UDY: X-RAY [...] MD at 10:41 EST , Service support [phone], CC: Chaparrita Albrecht DO; Kylah Linda DO Party Plan Sales Director: Signed 13-May-2016 Sinus/Facial Bone Result: Comments: See Note; NOTES: [facility] Imaging Services [address] [place] [address] Verdana 4d Sinus/Facial Bone MR#: [id number] Acct: [id number] Name: CLARENCE ALBERT Rep #: [id number] : 1940 F 76 From: Godwin Winter MD PCP: Chaparrita Albrecht DO Status: REG CLI Study: Sinus/Facial Bone Date of Exam: 05/13/16 Exam# [id number] Ordering Dr: Alejandro Silverman MD STUDY: CT [...] MD at 7:35 EST , Service support [phone], CC: Chaparrita Albrecht DO; Alejandro Silverman MD Party Plan Sales Director: Signed 21-Apr-2016 Emergency Department Summary Result: Comments: See Note; NOTES: [facility] Medical Records Department [address] [place] [address] Emergency Department Summary MR#: [id number] Acct: [id number] Name: CLARENCE ALBERT Rep #: [id number] : 1940 76 From: Carissa Murphy MD PCP: Chaparrita Albrecht DO Status: [facility] ER DATE OF SERVICE: 04/20/2016 HISTORY OF [...] epistaxis. CARISSA MURPHY MD T: NTS JOB: [id number] 04/21/16 0806 <Electronically signed by Carissa Murphy MD> Date Carissa donovan MD Cosigner Signature (If Indicated): Date CC: Chaparrita Albrecht DO Date Dictated: 04/20/161711 Date Transcribed: 04/20/161711 Party Plan Sales Director: Signed 20-Apr-2016 Discharge Instruction Result: Comments: See Note; NOTES: [facility] Medical Records Department [address] [place] [address] Discharge Instruction 04/20/16 1303 MR#: [id number] Acct: [id number] Name: CLARENCE ALBERT Rep #: [id number] : 1940 76 From: Carissa Murphy MD [...] your Primary Care Provider. Call [facility] ([phone]) or report to the closest Emergency Room. Call 911 if necessary. 04/20/16 1645 <Electronically signed by Carissa Murphy MD> Date Carissa Murphy MD Cosigner Signature (If I ndicated): Date CC: Chaparrita Albrecht DO 02-Nov-2015 Carotid Duplex Ultrasound Result: Comments: See Note; NOTES: [facility] Cardiovascular Services [address] [place] [address] Carotid Duplex Ultrasound 10/30/15 1100 MR#: [id number] Acct: [id number] Name: CLARENCE ALBERT Rep #: [id number] : 1940 75 From: Elvin Natarajan MD Attending Dr: Chaparrita Albrecht DO Status: REG CLI Ordering Dr: Chaparrita Albrecht DO Date: 10/30/15 Location: [facility] Sex: F C Adm itted: Reason [...] the left vertebral artery. Procedure Carotid Duplex 89714. The exam was diagnostic. Exam performed in [...] Dictated: 10/30/15 1100 Date Transcribed: 11/02/15 1143 Party Plan Sales Director: Signed 30-Oct-2015 Bilat Scrn Digital AND CAD Result: Comments: See Note; NOTES: [facility] Imaging Services [address] [place] [address] Verdana 4d Bilat Scrn Digital AND CAD MR#: [id number] Acct: [id number] Name: CLARENCE ALBERT Rep #: [id number] : 1940 F 75 From: Andres Brady MD PCP: Chaparrita Albrecht DO Status: REG CLI Study: Bilat Scrn Digital AND CAD Date of Exam: 10/30/15 Exam# [id number] Ordering Dr: Chaparrita Albrecht DO MAMMOGRAPHY - [...] calcifications. No other significant abnormalities are identified. BI/Bilat Scrn Digi claudia AND CAD IMPRESSION: Stable bilateral screening mammogram. Yearly follow- up mammogram recommended. (A) ASSESSMENT CATEGORY: BIRADS Category 2: Benign. A le tter regarding these results will be sent to the patient by the facility within 30 days. Approximately 10% of breast cancers are not detected by mammography. A normal mammogram should not delay biop sy of a clinically suspicious abnormality. [id number] Electronically Signed: Andres Brady MD at 17:48 EDT Tel , Service support [phone], CC: Chaparrita Albrecht DO Party Plan Sales Director: Signed 30-Oct-2015 Bilat Scrn Digital AND CAD Result: Comments: See Note; NOTES: [facility] Imaging Services [address] [place] [address] Verdana 4d Bilat Scrn Digital AND CAD MR#: [id number] Acct: [id number] Name: CLARENCE ALBERT Rep #: [id number] : 1940 F 75 From: Andres Brady MD PCP: Chaparrita Albrecht DO Status: REG CLI Study: Bilat Scrn Digital AND CAD Date of Exam: 10/30/15 Exam# [id number] Ordering Dr: Chaparrita Albrecht DO MAMMOGRAPHY - [...] abnormalities are identified. CC: Chaparrita Albrecht DO Party Plan Sales Director: Signed 22-Oct-2015 ELECTROCARDIOGRAM, COMPLETE (ECG) (75075) Comments: ekg showed normal sinus rhythym, normal axis, no acute st/t wave changes no change Result: [MEASUREMENTS ANALYSIS] Date of Test: 10/22/2015 14:41:29; Heart Rate: 71; [place] Interval: 140; QRS: 94; QT Interval: 384; Corrected QT Interval (QTc): 403; P Wave Dante: 58; QRS Wave Dante: -3; T Wave Dante: 56; Blood Pressure: 128/76 [ECG DIAGNOSTIC STATEMENTS] Date of Test: 10/22/2015 14:41:29; Summary: Sinus Rhythm Low voltage -possible pulmonary disease. ABNORMAL 22-Jul-2015 Kidney and Bladder Result: Comments: See Note; NOTES: [facility] Imaging Services [address] [place] [address] Verdana 4d Kidney and Bladder MR#: [id number] Acct: [id number] Name: Yaniv ALBERT Rep #: [id number] : 1940 F 75 From: Nir Sanchez MD PCP: Chaparrita Albrecht DO Status: REG CLI Study: Kidney and Bladder Date of Exam: 07/22/15 Exam# [id number] Ordering Dr: Chaparrita Albrecht DO STUDY: RENAL [...] Service support , CC: Chaparrita Albrecht DO Party Plan Sales Director: Signed 11-Mar-2015 Knee 4 or More Views Result: Comments: See Note; NOTES: [facility] Imaging Services [address] [place] [address] Verdana 4d Knee 4 or More Views MR#: [id number] Acct: [id number] Name: CLARENCE ALBERT Rep #: [id number] : 1940 F 74 From: Trent Cameron DO PCP: Chaparrita Albrecht DO Status: REG CLI Study: Knee 4 or More Views Date of Exam: 03/11/15 Exam# [id number] Ordering Dr: Case Albrecht DO STUDY: X-RAY [...] at 7:45 EST Tel , Service support [phone], RAD/Knee 4 or More Views IMPRESSION: Degener ative changes within the knee. No acute fracture. Small suprapatellar effusion. Electronically Signed: Trent Cameron DO at 7:45 EST Tel , Service support [phone], CC: Chaparrita Albrecht DO Party Plan Sales Director: Signed 11-Mar-2015 Knee 4 or More Views Result: Comments: See Note; NOTES: [facility] Imaging Services [address] [place] [address] Verdana 4d Knee 4 or More Views MR#: [id number] Acct: [id number] Name: CLARENCE ALBERT Rep #: [id number] : 1940 F 74 From: Trent Cameron DO PCP: Chaparrita Albrecht DO Status: REG CLI Study: Knee 4 or More Views Date of Exam: 03/11/15 Exam# [id number] Ordering Dr: Case Albrecht DO STUDY: X-RAY [...] at 7:46 EST Tel , Service support [phone], RAD/Knee 4 or More Views IMPRESSION: Mild degenerative changes. No acute bony abnormality. Electronically Signed: Trent Cameron DO at 7:46 EST Tel , Service support [phone], CC: Chaparrita Albrecht DO Party Plan Sales Director: Signed 18-Oct-2014 Carotid Duplex Ultrasound Result: Comments: See Note; NOTES: [facility] Cardiovascular Services [address] [place] [address] Carotid Duplex Ultrasound 10/18/14 1331 MR#: [id number] Acct: [id number] Na me: CLARENCE ALBERT Rep #: [id number] : 1940 74 From: Elvin Natarajan MD [...] the left vertebral artery. Procedure Carotid Duplex 81639. The exam was diagnostic. Exam performed in [...] Dictated: 10/18/14 1331 Date Transcribed: 10/18/14 1616 Party Plan Sales Director: Signed 18-Oct-2014 Bilat Scrn Digital AND CAD Result: Comments: See Note; NOTES: [facility] Imaging Services [address] [place] [address] Breast Imaging Report MR#: [id number] Acct: [id number] Name: CLARENCE ALBERT Rep #: [id number] : 1940 F 74 From: Misael Hebert MD PCP: Chaparrita Albrecht DO Status: REG CLI Study: Saad Herreran Digital AND CAD Date of Exam: 10/18/14 Exam# [id number] Ordering Dr: Chaparrita Albrecht DO MAMMOGRAPHY - [...] Misael redmond MD at 13:44 EDT Tel [phone], Service support [phone], CC: Chaparrita Albrecht DO Party Plan Sales Director: Signed 09-Jul-2014 Dexa Bone Density Study (HP) Result: Comments: See Note; NOTES: [facility] Imaging Services [address] [place] [address] Bone Density Report MR#: [id number] Acct: [id number] Name: CLARENCE ALBERT Rep #: [id number] : 1940 F 74 From: Misael Hebert MD PCP: Chaparrita Albrecht DO Status: REG CLI Study: Dexa Bone Density Study (HP) Date of Exam: 07/09/14 Exam# [id number] Ordering Dr: Chaparrita Albrecht DO STUDY: DUAL [...] Angel Hebert MD at 14:55 EDT Tel [phone], Service support [phone], CC: Chaparrita Albrecht DO Party Plan Sales Director: Signed 17-Sep-2013 Chest PA and Lateral Result: Comments: See Note; NOTES: [facility] Imaging Services [address] [place] [address] Radiology Report MR#: [id number] Acct: [id number] Name: CLARENCE ALBERT Rep #: [id number] : 1940 F 73 From: David Bennett MD PCP: Chaparrita Albrecht DO Status: REG CLI Study: Chest PA and Lateral Date of Exam: 09/17/13 Exam# [id number] Ordering Dr: Chaparrita Albrecht DO STUDY: X-RAY [...] MD at 20:44 EDT , Service support [phone], RAD/Chest PA and Lateral IMPRESSION: No focal infiltrate or edema. Electronic ally Signed: David Bennett MD at 20:44 EDT , Service support [phone], CC: Chaparrita Albrecht DO Party Plan Sales Director: Signed 17-Sep-2013 Spirometry (41520) Result: 29-Aug-2013 Carotid Duplex Ultrasound Result: Comments: See Note; NOTES: [facility] Cardiovascular Services [address] [place] [address] Carotid Duplex Ultrasound 08/24/13 0939 MR#: [id number] Acct: [id number] Chalo e: CLARENCE ALBERT Rep #: [id number] : 1940 73 From: Anurag Loya MD [...] in the left bulb. Procedure Carotid Duplex 73208. Exam perfor med in department. Interpretation Summary Mild (<50%) stenosis right extracranial internal carotid. Mild (<50%) stenosis left extracranial internal carotid. Flow within the vertebra l arteries is antegrade bilaterally. Ordering Physician: Chaparrita Albrecht Performed By: Kendal Benton RVT : Chaparrita Albrecht DO Date Dictated: 08/24/13 0939 Date Transcribed: 08/29/13 1118 Party Plan Sales Director: Signed Immunization Name Dates Details Influenza (3 years and up) on: 16-Jan-2008 Comments: Lot #: [id number] date: 09/10Amount given: 0.5 mlRoute: IMSite given: Left deltoidGiven by: Olivia Bell LPN Influenza (3 years and up) on: 09-Jan-2009 Comments: Lot #[id number]-left deltoidDose0.5mlgiven by Marycarmen Jorge LPN Pneumococcal (2 years and up) on: 29-Aug-2007 Comments: 0.5cc given im lt arm [id number] exp 02-13-08 Family History Unknown Family Member [...] copy of this report has been sent [phone].PATIENT WAS FASTINGPERFORMED BY: [facility] [id number] Alb/Creat Ratio 4475.5 {mg/g_creat} (Abnormal) Range: 0.0-30.0 Comments: Normal: 0.0 - 30.0 Albuminuria: 31.0 - 300.0 Clinical albuminuria: >300.0 Albumin, Urine 2085.6 ug/mL (Normal) Comments: Results confirmed ondilution. Creatinine, Urine 46.6 mg/dL (Normal) 06-Mar-20189:33 CBC With Differential/Platelet Comments: A courtesy copy of this report has been sent [phone].PATIENT WAS FASTINGPERFORMED BY: [facility] [id number] Information: ADD CBC Immature Grans (Abs) 0.0 [...] copy of this report has been sent [phone].PATIENT WAS FASTINGPERFORMED BY: [employer] [id number] [id number] :33 Range: 1.6-2.3 :33 Microscopic Examination Comments: A courtesy copy of this report has been sent [phone].PATIENT WAS FASTINGPERFORMED BY: [employer] [id number] Attil[place] TechnologiesD[place] [id number] Bacteria Few (Normal) Mucus Threads Present (Normal) Epithelial Cells (non 0-10 {/hpf} Range: 0 - 10 renal) (Normal) RBC 0-2 {/hpf} (Normal) Range: 0 - 2 WBC 0-5 {/hpf} (Normal) Range: 0 - 5 : PTH, Intact 29 pg/mL (Normal) Comments: A courtesy copy of this report has been sent [phone].PATIENT WAS FASTINGPERFORMED BY: [employer] [id number] [id number] 33 Range: 15-65 :33 Renal Panel (10) Comments: A courtesy copy of this report has been sent [phone].PATIENT WAS FASTINGPERFORMED BY: [employer] [id number] Attil[address] TechnologiesDublin [place] [id number] Phosphorus 4.0 mg/dL (Normal) Range: 2.5-4.5 :33 Vitamin D Hydroxy (31108) Comments: A courtesy copy of this report has been sent [phone].PATIENT WAS FASTINGPERFORMED BY: [employer] [id number] Road[address]ublin [place] [id number] Vitamin D, 25-Hydroxy 36.8 ng/mL (Normal) Range: 30.0-100.0 Comments: Vitamin D deficiency has been defined by the [place] of[place]icine and an Endocrine Society practice guideline as alevel of serum 25-OH vitamin D less than 20 ng/mL (1,2).The Endocrine Society went on to further define vitamin Dinsufficiency as a level between 21 and 29 ng/mL (2).1. IOM ([place] of Medicine). 2010. Dietary reference intakes for calcium and D. [place]: The National Academies Press.2. Mira MF, Rosette LOPEZ, Tommy SWAIN, et al. Evaluation, treatment, and prevention of vitamin D deficiency: an Endocrine Society clinical practice guideline. JCEM. 2010; 96(7):1911-30. :33 URINALYSIS, W/ MICRO (50302) Comments: A courtesy copy of this report has been sent [phone].PATIENT WAS FASTINGPERFORMED BY: [email or web address] [facility] [place] [id number] Microscopic Examination See below: (Normal) Comments: Microscopic was indicated and was performed. Nitrite, Urine Negative (Normal) Urobilinogen,Semi-Qn 0.2 mg/dL (Normal) Range: 0.2-1.0 Bilirubin Negative (Normal) Occult Blood Negative (Normal) Ketones Negative (Normal) Glucose Negative (Normal) Protein 3+ (Abnormal) WBC Esterase Negative (Normal) Appearance Clear (Normal) Urine-Color Yellow (Normal) pH 5.5 (Normal) Range: 5.0-7.5 Specific Sharon 1.012 (Normal) Range: 1.005-1.030 :33 LIPID PANEL (51503) Comments: A courtesy copy of this report has been sent [phone].PATIENT WAS FASTINGPERFORMED BY: [email or web address] [facility] [id number] LDL/HDL Ratio 1.4 {ratio} (Normal) Range: 0.0-3.2 [...] copy of this report has been sent [phone].PATIENT WAS FASTINGPERFORMED BY: [facility]CoVirt[facility] BerlinZhdhvx6860 [facility] [id number] (56888) ALT (SGPT) 11 [iU]/L (Normal) Range: 0-32 [...] 8-27 Glucose 162 mg/dL (Abnormal) Range: 65-99 40-Rqm-530387:24 HgA1C , Office (28430) HgA1C , Office 6.5 % (Normal) Range: 4.6 - 7.1 3-Dec-22164:33 HGB A1C (05265) Comments: A courtesy copy of this report has been sent [phone].PATIENT WAS FASTINGPERFORMED BY: [facility]6370 [facility] [id number] Hemoglobin A1c 6.3 % (Abnormal) Range: 4.8-5.6 Comments: . Prediabetes: 5.7 - 6.4 Diabetes: >6.4 Glycemic control for adults with diabetes: <7.0 :14 LIPID PANEL (55870) Comments: PATIENT WAS FASTINGPERFORMED BY: [facility]6370 [facility] [id number] LDL/HDL Ratio 1.1 {ratio} (Normal) Range: 0.0-3.2 [...] (Normal) Range: 100-199 :14 Vitamin D Hydroxy (57933) Comments: PATIENT WAS FASTINGPERFORMED BY: [facility]6370 [facility] [id number] Vitamin D, 25-Hydroxy 37.8 ng/mL (Normal) Range: 30.0-100.0 Comments: Vitamin D deficiency has been defined by the [place] of[place]icine and an Endocrine Society practice guideline as alevel of serum 25-OH vitamin D less than 20 ng/mL (1,2).The Endocrine Society went on to further define vitamin Dinsufficiency as a level between 21 and 29 ng/mL (2).1. IOM ([place] of Medicine). 2010. Dietary reference intakes for calcium and D. [place]: The National Academies Press.2. Mira MF, Rosette LOPEZ, Tommy SWAIN, et al. Evaluation, treatment, and prevention of vitamin D deficiency: an Endocrine Society clinical practice guideline. JCEM. 2010; 96(7):1911-30. :14 CBC with auto diff (36294) Comments: PATIENT WAS FASTINGPERFORMED BY: [facility] [employer] [facility] [employer] [facility] [id number] Immature Grans (Abs) 0.0 {x10E3/uL} (Normal) Range: [...] COMPREHENSIVE Comments: PATIENT WAS FASTINGPERFORMED BY: [facility] Uovizw7131 [facility] [id number] (49720) ALT (SGPT) 10 [iU]/L (Normal) Range: 0-32 [...] 8-27 Glucose 142 mg/dL (Abnormal) Range: 65-99 70-Ops-40138:40 MICROALBUMIN: CREATININE RATIO Comments: PATIENT WAS FASTINGPERFORMED BY: Upptalk70 [facility]ACE[facility]ALSUNC [facility] [id number] (05264) AND (32445) Alb/Creat Ratio 4213.3 {mg/g_creat} (Abnormal) Range: 0.0-30.0 Albumin, Urine 3206.3 ug/mL (Normal) Comments: Results confirmed ondilution. Creatinine, Urine 76.1 mg/dL (Normal) :40 CBC & PLATELETS (AUTO) (70610) Comments: please fax to Dr. Austin- [phone]; PATIENT WAS FASTINGPERFORMED BY: Upptalk70 [facility]ACE[facility]ICALSUNC [facility] [id number] Platelets 148 {x10E3/uL} (Abnormal) Range: 150-379 RDW [...] PANEL Comments: please fax to Dr. Austin- [phone]; PATIENT WAS FASTINGPERFORMED BY: ParentsWareVirtua BerlinPbkcoa8685 [facility] [id number] Information: [id number] FX DR. SANTANA (28395) Albumin 3.1 g/dL (Abnormal) Range: 3.5-4.8 Phosphorus [...] 133 mg/dL (Abnormal) Range: 65-99 :40 MAGNESIUM (03871) Comments: please fax to Dr. Austin- [phone]; PATIENT WAS FASTINGPERFORMED BY: [facility] Hxbnyu0897 [address] RoadDublin [place] [id number] Magnesium 1.9 mg/dL (Normal) Range: 1.6-2.3 :40 CALCIFEDIOL (70549) Comments: please fax to Dr. Austin- [phone]; PATIENT WAS FASTINGPERFORMED BY: [facility] Sizyld7789 [address] RoadDublin [place] [id number] Vitamin D, 25-Hydroxy 29.4 ng/mL (Abnormal) Range: 30.0-100.0 Comments: Vitamin D deficiency has been defined by the [place] of[place]icine and an Endocrine Society practice guideline as alevel of serum 25-OH vitamin D less than 20 ng/mL (1,2).The Endocrine Society went on to further define vitamin Dinsufficiency as a level between 21 and 29 ng/mL (2).1. IOM ([place] of Medicine). 2010. Dietary reference intakes for calcium and D. [place]: The National Academies Press.2. Mira MF, Rosette NC, Tommy SWAIN, et al. Evaluation, treatment, and prevention of vitamin D deficiency: an Endocrine Society clinical practice guideline. JCEM. 2010; 96(7):1911-30. :40 PARATHORMONE (99574) Comments: please fax to Dr. Austin- [phone]; PATIENT WAS FASTINGPERFORMED BY: [facility] Xufssv8695 [facility] [place] [id number] PTH, Intact 22 pg/mL (Normal) Range: 15-65 59-Jwv-72218:30 COLON BIOPSY (CHOOSE See Note (Normal) Comments: [facility] Wsjmyjeoda6755 [facility]. [place], [place], [id number] SITE) Comments: Patient: CLARENCE ALBERT : 1940 (77/F) Acct Num: [id number] Phys: Marcus Caldera Unit Num: [id number] Loc: LABSPEC Specimen: [id number] Received: 09/16/171528 Spec Type: C OLON BX [...] one cassette. / MARCY:dustin 09/19/17 TC:1 CPT: 86014 x2 HEADER OPERATION: Colonoscopy PRE-OP DIAGNOSIS: History of polyps TISSUE SUBMITTED: A Proximal sigmoid polyp, rule out adenoma, B Transversecolon, rule out adenoma MICROSCOPIC DESCRIPTION Slides are reviewed. M ICROSCOPIC DIAGNOSIS A. Proximal sigmoid polyp, biopsy: Fragments of tubular adenoma. B. Transverse colon polyp, biopsy: Fragments of tubular adenoma. MARCY:dustin 09/20/17 Signed _ Nacho Ardon 09/20/17 <signature on file> 02-Btp-86663:24 METABOLIC PANEL, COMPREHENSIVE Comments: PATIENT NOT FASTINGPERFORMED BY: [facility] Udwrfy4793 [facility] [id number] (36527) ALT (SGPT) 14 [iU]/L (Normal) Range: 0-32 [...] (Abnormal) Range: 65-99 :07 HgA1C , Office (55546) HgA1C , Office 7.2 % (Abnormal) Range: 4.6 - 7.1 :37 Clostridium difficile Toxin Comments: PATIENT NOT FASTINGPERFORMED BY: [facility] [id number] A+B, EIA (63236) C difficile Toxins A+B, EIA Negative (Normal) :37 LEUKOCYTE COUNT, FECAL (77308) Comments: PATIENT NOT FASTINGPERFORMED BY: [facility] [id number] Result 1 NWBC (Normal) Comments: No white blood cells seen. White Blood Cells (WBC), Final report (Normal) Stool :37 OVA & PARASITE DIR SMEAR Comments: PATIENT NOT FASTINGPERFORMED BY: [facility] [id number] (08821) Result 1 NOCP (Normal) Comments: No ova, cysts, or parasites seen. Ova + Parasite Exam Final report (Normal) Comments: These results were obtained using wet preparation(s) and trichromestained smear. This test does not include testing for Cryptosporidiumparvum, Cyclospora, or Microsporidia. :37 SETH CULTURE-STOOL (13179) Comments: PATIENT NOT FASTINGPERFORMED BY: [facility] [place] [id number] Information: SRC:ST SRC:ST E coli Shiga Toxin EIA Negative (Normal) Result 1 NCI (Normal) Comments: No Campylobacter species isolated. Campylobacter Culture Final report (Normal) Result 1 NSS (Normal) Comments: No Salmonella or Shigella recovered. Salmonella/Shigella Screen Final report (Normal) 47-Dyc-79097:06 Renal function Panel Comments: fax copy to Dr. Santana [phone]; A courtesy copy of this report has been sent [phone].PATIENT NOT FASTINGPERFORMED BY: [employer] Efgvkb7794 [facility] [id number] Information: NURSE DRAW (22586) Albumin 3.5 g/dL (Normal) Range: 3.5-4.8 Phosphorus [...] copy of this report has been sent [phone].PATIENT NOT FASTINGPERFORMED BY: [employer] Oyqvdg6975 [address] [facility] [id number] :02 Range: 15-65 Vitamin D, 25-Hydroxy 34.7 ng/mL (Normal) Comments: A courtesy copy of this report has been sent [phone].PATIENT NOT FASTINGPERFORMED BY: CB [facility] Nujiraox [facility] [id number] :02 Range: 30.0-100.0 Comments: Vitamin D deficiency has been defined by the [place] of[place]icine and an Endocrine Society practice guideline as alevel of serum 25-OH vitamin D less than 20 ng/mL (1,2).The Endocrine Society went on to further define vitamin Dinsufficiency as a level between 21 and 29 ng/mL (2).1. IOM ([place] of Medicine). 2010. Dietary reference intakes for calcium and D. [place]: The National AcademEcorNaturaSì Press.2. Mira MF, Rosette NC, Tommy SWAIN, et al. Evaluation, treatment, and prevention of vitamin D deficiency: an Endocrine Society clinical practice guideline. JCEM. 2010; 96(7):1911-30. 9-Fbq-884272:02 MICROALBUMIN: CREATININE RATIO Comments: send results to Dr. Santana fax: [phone]; A courtesy copy of this report has been sent [phone].PATIENT NOT FASTINGPERFORMED BY: [employer] Smoothieslin6370 [facility] PHARMACEUTICALSUNC [facility] [id number] (72454) AND (36552) Alb/Creat Ratio 4191.2 {mg/g_creat} (Abnormal) Range: 0.0-30.0 Albumin, Urine 2380.6 ug/mL (Normal) Comments: Results confirmed ondilution. Creatinine, Urine 56.8 mg/dL (Normal) 6-Rox-184413:02 CBC, PLATELETS & MANUAL Comments: send results to Dr. Santana fax: [phone]; A courtesy copy of this report has been sent [phone].PATIENT NOT FASTINGPERFORMED BY: [employer] Riszzb9170 [address] [facility] [id number] Information: VIT D25, PTH DIFF (10884) Immature Grans (Abs) 0.0 {x10E3/uL} (Normal) Range: [...] 3.77-5.28 WBC 5.4 {x10E3/uL} (Normal) Range: 3.4-10.8 2-Wiz-404239:02 MAGNESIUM (53143) Comments: send results to Dr. Santana fax: [phone]; A courtesy copy of this report has been sent [phone].PATIENT NOT FASTINGPERFORMED BY: [facility] Cosmetic SurgeryCo Dcmsyg3759 [facility] [id number] Magnesium, Serum 1.8 mg/dL (Normal) Range: 1.6-2.3 9-Qua-737129:02 RENAL FUNCTION PANEL (53946) Comments: send results to Dr. Santana fax: [phone]; A courtesy copy of this report has been sent [phone].PATIENT NOT FASTINGPERFORMED BY: LabCoVirtua BerlinQqeanp1425 [facility] [id number] Albumin, Serum 3.7 g/dL (Normal) Range: 3.5-4.8 [...] Glucose, Serum 119 mg/dL (Abnormal) Range: 65-99 5-Ete-189829:07 LIPID PANEL (17484) Comments: PATIENT WAS FASTINGPERFORMED BY: Gen4 EnergyUNC [facility] [id number] LDL/HDL Ratio 1.4 {ratio} (Normal) Range: 0.0-3.2 Comments: LDL/HDL Ratio Men Women 1/2 Avg.Risk 1.0 1.5 Av g.Risk 3.6 3.2 2X Avg.Risk 6.2 5.0 3X Avg.Risk 8.0 6.1 LDL Cholesterol Calc 102 mg/dL (Abnormal) Range: 0-99 VLDL Cholesterol Cesar 17 mg/dL (Normal) Range: 5-40 HDL Cholesterol 75 mg/dL (Normal) Triglycerides 84 mg/dL (Normal) Range: 0-149 Cholesterol, Total 194 mg/dL (Normal) Range: 100-199 8-Nak-465077:07 CBC W/AUTO DIFF WBC (96220) Comments: PATIENT WAS FASTINGPERFORMED BY: Upptalk70 [facility]ARMACE[facility]ICALSUNC [facility] [id number] Immature Grans (Abs) 0.0 {x10E3/uL} (Normal) Range: [...] 3.77-5.28 WBC 4.8 {x10E3/uL} (Normal) Range: 3.4-10.8 0-Muv-273853:07 METABOLIC PANEL, COMPREHENSIVE Comments: PATIENT WAS FASTINGPERFORMED BY: [facility]6370 [facility] [id number] (18710) ALT (SGPT) 14 [iU]/L (Normal) Range: 0-32 [...] 8-27 Glucose 158 mg/dL (Abnormal) Range: 65-99 0-Qab-349239:07 VITAMIN B-12 (CYANOCOBALAMIN) Comments: PATIENT WAS FASTINGPERFORMED BY: [employer] [facility] [id number] (16198) Vitamin B12 771 pg/mL (Normal) Range: 232-1245 13-May-20170:00 CDIFF (Molecular) Comments: [facility] Qmmkkzxnbc55[address] [place], [place], [address] CDIFF See Note (Normal) Comments: Cdiff-MolecularNormal Reference Range = Negative C. Diff DNA Negative- No toxigenic C. Diff DNA DetectedNAAT METHOD Testing was performed using nucleic acid amplification :32 Rapid Flu (09528 x 2) Influenza A Ag Negative (Normal) :35 CBC with auto diff (51391) Comments: PATIENT WAS FASTINGPERFORMED BY: Chamson GroupVirtua BerlinZpolef5613 [facility] [id number] Immature Grans (Abs) 0.0 {x10E3/uL} (Normal) Range: [...] 3.77-5.28 WBC 6.6 {x10E3/uL} (Normal) Range: 3.4-10.8 15-Low-77472:35 METABOLIC PANEL, COMPREHENSIVE Comments: PATIENT WAS FASTINGPERFORMED BY: LabCoVirtua BerlinNgpcmf0930 [facility] [id number] (73071) ALT (SGPT) 16 [iU]/L (Normal) Range: 0-32 [...] Glucose, Serum 145 mg/dL (Abnormal) Range: 65-99 11-Ueg-604309:51 HgA1C , Office (80361) HgA1C , Office 6.7 % (Normal) Range: 4.6 - 7.1 8-Kfs-288904:50 CALCIFEDIOL (23001) Comments: A courtesy copy of this report has been sent [phone].PATIENT WAS FASTINGPERFORMED BY: [facility]6370 [facility] [id number] Vitamin D, 25-Hydroxy 40.7 ng/mL (Normal) Range: 30.0-100.0 Comments: Vitamin D deficiency has been defined by the [place] of[place]icine and an Endocrine Society practice guideline as alevel of serum 25-OH vitamin D less than 20 ng/mL (1,2).The Endocrine Society went on to further define vitamin Dinsufficiency as a level between 21 and 29 ng/mL (2).1. IOM ([place] of Medicine). 2010. Dietary reference intakes for calcium and D. [place]: The National Academies Press.2. Mira MF, Rosette NC, Tommy SWAIN, et al. Evaluation, treatment, and prevention of vitamin D deficiency: an Endocrine Society clinical practice guideline. JCEM. 2011 Alfonso; 96(7):1911-30. 8-Bii-637731:50 PTH (PARATHORMONE) (12635) Comments: A courtesy copy of this report has been sent [phone].PATIENT WAS FASTINGPERFORMED BY: [employer] Jueosk1177 [facility] PHARMACEUTICALSUNC [facility] [id number] PTH, Intact 20 pg/mL (Normal) Range: 15-65 8-Mjs-907428:50 MICROALBUMIN: CREATININE RATIO Comments: A courtesy copy of this report has been sent [phone].PATIENT WAS FASTINGPERFORMED BY: ParentsWare Bvolpy0982 [facility] PHARMACEUTICALSUNC [facility] [id number] (55555) AND (36253) Microalb/Creat Ratio 4376.0 {mg/g_creat} (Abnormal) Range: 0.0-30.0 Microalbumin, Urine 3369.5 ug/mL (Normal) Comments: Results confirmed ondilution. Creatinine, Urine 77.0 mg/dL (Normal) 2-Abi-410790:50 Renal function Panel Comments: A courtesy copy of this report has been sent [phone].PATIENT WAS FASTINGPERFORMED BY: [facility] Jprykb8775 [facility] [id number] Information: FX DR. SANTANA [phone] (62852) Albumin, Serum 3.8 g/dL (Normal) Range: 3.5-4.8 [...] Glucose, Serum 203 mg/dL (Abnormal) Range: 65-99 0-Rsu-119018:50 Magnesium (02855) Comments: A courtesy copy of this report has been sent [phone].PATIENT WAS FASTINGPERFORMED BY: [facility]6370 [facility] [id number] Magnesium, Serum 1.8 mg/dL (Normal) Range: 1.6-2.3 :53 CBC with auto diff (40035) Comments: A courtesy copy of this report has been sent [phone].PATIENT WAS FASTINGPERFORMED BY: [facility]6370 [facility] [id number] Immature Grans (Abs) 0.0 {x10E3/uL} (Normal) Range: [...] {x10E3/uL} (Normal) Range: 3.4-10.8 :53 LIPID PANEL (41200) Comments: A courtesy copy of this report has been sent [phone].PATIENT WAS FASTINGPERFORMED BY: Chamson GroupVirtua BerlinGkdqnu3675 [facility] [id number] LDL/HDL Ratio 1.2 {ratio_units} (Normal) Range: 0.0-3.2 [...] copy of this report has been sent [phone].PATIENT WAS FASTINGPERFORMED BY: Chamson GroupVirtua BerlinDxolze4586 [facility] [id number] (43388) ALT (SGPT) 11 [iU]/L (Normal) Range: 0-32 [...] Glucose, Serum 205 mg/dL (Abnormal) Range: 65-99 78-Rsp-198821:57 HgA1C , Office (73840) HgA1C , Office 7.1 % (Normal) Range: 4.6 - 7.1 :09 LIPID PANEL (62952) Comments: PATIENT WAS FASTINGPERFORMED BY: Seebright Iefzsa1694 [facility] [id number] LDL/HDL Ratio 1.3 {ratio_units} (Normal) Range: 0.0-3.2 [...] PANEL, COMPREHENSIVE Comments: PATIENT WAS FASTINGPERFORMED BY: ParentsWareVirtua BerlinJzjbpc8891 [facility] [id number] (31598) ALT (SGPT) 12 [iU]/L (Normal) Range: 0-32 [...] (Abnormal) Range: 65-99 :50 HgA1C , Office (53329) HgA1C , Office 6.7 % (Normal) Range: 4.6 - 7.1 :25 Magnesium, Serum 1.9 mg/dL (Normal) Comments: PATIENT WAS FASTINGPERFORMED BY: [facility]6370 [facility] [id number] Range: 1.6-2.3 :25 Microalb/Creat Ratio, Randm Ur Comments: PATIENT WAS FASTINGPERFORMED BY: [facility]6370 [facility] [id number] Microalb/Creat Ratio 2652.0 {mg/g_creat} Range: 0.0-30.0 (Abnormal) Microalbumin, Urine 2482.3 ug/mL (Normal) Comments: Results confirmed ondilution. Creatinine, Urine 93.6 mg/dL (Normal) PTH, Intact 26 pg/mL (Normal) Comments: PATIENT WAS FASTINGPERFORMED BY: [facility] Aftyga7639 [address] RoadDublin [place] [id number] :25 Range: 15-65 :25 Renal Panel (10) Comments: PATIENT WAS FASTINGPERFORMED BY: [facility] Yyqvtr2561 [address] RoadDublin [place] [id number] Phosphorus, Serum 4.3 mg/dL (Normal) Range: 2.5-4.5 :25 Thyroxine (T4) Free, Direct, S Comments: PATIENT WAS FASTINGPERFORMED BY: [facility] Enibsw5929 [address] RoadDublin [place] [id number] T4,Free(Direct) 1.08 ng/dL (Normal) Range: 0.82-1.77 : TSH 2.980 {uIU/mL} Comments: PATIENT WAS FASTINGPERFORMED BY: [facility] Tczeha6654 [address] RoadDublin [place] [id number] 25 (Normal) Range: 0.450-4.500 : Vitamin D, 25-Hydroxy 37.1 ng/mL (Normal) Comments: PATIENT WAS FASTINGPERFORMED BY: [facility] Kvulqd8386 [address] RoadDublin [place] [id number] 25 Range: 30.0-100.0 Comments: Vitamin D deficiency has been defined by the [place] of[place]icine and an Endocrine Society practice guideline as alevel of serum 25-OH vitamin D less than 20 ng/mL (1,2).The Endocrine Society went on to further define vitamin Dinsufficiency as a level between 21 and 29 ng/mL (2).1. IOM ([place] of Medicine). 2010. Dietary reference intakes for calcium and D. [place]: The National Academies Press.2. Mira MF, Rosette LOPEZ, Tommy SWAIN, et al. Evaluation, treatment, and prevention of vitamin D deficiency: an Endocrine Society clinical practice guideline. JCEM. 2010; 96(7):1911-30. :25 CBC W/AUTO DIFF WBC (20543) Comments: PATIENT WAS FASTINGPERFORMED BY: Chamson GroupPresbyterian HospitalPfddxh0098 [facility] [id number] Immature Grans (Abs) 0.0 {x10E3/uL} (Normal) Range: [...] PANEL, COMPREHENSIVE Comments: PATIENT WAS FASTINGPERFORMED BY: LabCoVirtua BerlinYlznjg1945 [facility] [id number]; non- emergent till apt (99876) ALT (SGPT) 10 [iU]/L (Normal) Range: 0-32 [...] mg/dL (Abnormal) Range: 65-99 03-Aug-20169:25 LIPID PANEL (47431) Comments: PATIENT WAS FASTINGPERFORMED BY: [facility]6370 [facility] [id number] LDL/HDL Ratio 0.9 {ratio_units} (Normal) Range: 0.0-3.2 [...] (Normal) Range: 100-199 :54 HgA1C , Office (13800) HgA1C , Office 6.6 % (Normal) Range: 4.6 - 7.1 :1 Magnesium, Serum 2.1 mg/dL (Normal) Comments: PATIENT WAS FASTINGPERFORMED BY: [facility] SurgeryC[facility] Rwjvdy[address] Attila Technologiesblin [place] [id number] 2 Range: 1.6-2.3 :12 Microalb/Creat Ratio, Randm Ur Comments: PATIENT WAS FASTINGPERFORMED BY: [facility] SurgeryC[facility] Dryipf[address] [facility]in [place] [id number] Microalb/Creat Ratio 1863.4 {mg/g_creat} (Abnormal) Range: 0.0-30.0 Microalbumin, Urine 1416.2 ug/mL (Normal) Comments: Results confirmed ondilution. Creatinine, Urine 76.0 mg/dL (Normal) :12 Microscopic Examination Comments: PATIENT WAS FASTINGPERFORMED BY: [employer] Snjkgw3371 [facility]in [place] [id number] Bacteria None seen (Normal) Mucus Threads Present (Normal) Cast Type Hyaline casts (Normal) Casts Present {/lpf} (Abnormal) Epithelial Cells (non 0-10 {/hpf} Range: 0 - 10 renal) (Normal) RBC 3-10 {/hpf} Range: 0 - 2 (Abnormal) WBC 6-10 {/hpf} Range: 0 - 5 (Abnormal) PTH, Intact 36 pg/mL (Normal) Comments: PATIENT WAS FASTINGPERFORMED BY: [facility] SurgerySaint Joseph Hospital Of KirkwoodFobzfi1336 [facility]in [place] [id number] 0:12 Range: 15-65 Vitamin D, 25-Hydroxy 42.9 ng/mL (Normal) Comments: PATIENT WAS FASTINGPERFORMED BY: [facility] SurgeryC[facility] Wvamyr[address] [facility] [place] [id number] 0:12 Range: 30.0-100.0 Comments: Vitamin D deficiency has been defined by the [place] of[place]icine and an Endocrine Society practice guideline as alevel of serum 25-OH vitamin D less than 20 ng/mL (1,2).The Endocrine Society went on to further define vitamin Dinsufficiency as a level between 21 and 29 ng/mL (2).1. IOM ([place] of Medicine). 2010. Dietary reference intakes for calcium and D. [place]: The National Academies Press.2. Mira MF, Rosette LOPEZ, Tommy SWAIN, et al. Evaluation, treatment, and prevention of vitamin D deficiency: an Endocrine Society clinical practice guideline. JCEM. 2010; 96(7):1911-30. 01-Cjp-409175:12 URINALYSIS, W/ MICRO (72944) Comments: PATIENT WAS FASTINGPERFORMED BY: Upptalk70 [employer] [place] [id number] Microscopic Examination See below: (Normal) Comments: Microscopic was indicated and was performed. Nitrite, Urine Negative (Normal) Urobilinogen,Semi-Qn 0.2 mg/dL (Normal) Range: 0.2-1.0 Bilirubin Negative (Normal) Occult Blood Negative (Normal) Ketones Negative (Normal) Glucose Negative (Normal) Protein 4+ (Abnormal) WBC Esterase Trace (Abnormal) Appearance Clear (Normal) Urine-Color Yellow (Normal) pH 6.0 (Normal) Range: 5.0-7.5 Specific Sharon 1.015 (Normal) Range: 1.005-1.030 79-Itw-335148:12 CBC W/AUTO DIFF WBC (68232) Comments: PATIENT WAS FASTINGPERFORMED BY: [employer] [facility] Uuxfti2904 [facility]OL[facility] PHARMACEUTICALSUNC [facility] [id number] Immature Grans (Abs) 0.0 {x10E3/uL} (Normal) Range: [...] 3.77-5.28 WBC 6.2 {x10E3/uL} (Normal) Range: 3.4-10.8 67-Tny-256241:12 METABOLIC PANEL, COMPREHENSIVE Comments: PATIENT WAS FASTINGPERFORMED BY: LabCoVirtua BerlinBlrgsq6200 [facility] [id number] (32361) ALT (SGPT) 14 [iU]/L (Normal) Range: 0-32 [...] Glucose, Serum 154 mg/dL (Abnormal) Range: 65-99 02-Cqg-931348:12 LIPID PANEL (85696) Comments: PATIENT WAS FASTINGPERFORMED BY: Chamson GroupVirtua BerlinMlsnoj8604 [facility] [id number] LDL/HDL Ratio 0.7 {ratio_units} (Normal) Range: 0.0-3.2 Comments: LDL/HDL Ratio Men Women 1/2 Avg.Risk 1.0 1.5 Av g.Risk 3.6 3.2 2X Avg.Risk 6.2 5.0 3X Avg.Risk 8.0 6.1 LDL Cholesterol Calc 49 mg/dL (Normal) Range: 0-99 VLDL Cholesterol Cesar 14 mg/dL (Normal) Range: 5-40 HDL Cholesterol 75 mg/dL (Normal) Triglycerides 68 mg/dL (Normal) Range: 0-149 Cholesterol, Total 138 mg/dL (Normal) Range: 100-199 40-Etl-153780:50 HgA1C , Office (51716) HgA1C , Office 6.7 % (Normal) Range: 4.6 - 7.1 57-Tvj-423120:36 VITAMIN B-12 (CYANOCOBALAMIN) Comments: PATIENT WAS FASTINGPERFORMED BY: Chamson GroupVirtua BerlinGjwhgf2946 [facility] [id number] (76198) Vitamin B12 802 pg/mL (Normal) Range: 211-946 84-Fha-564477:36 LIPID PANEL (72135) Comments: PATIENT WAS FASTINGPERFORMED BY: Chamson GroupVirtua BerlinLikpja4193 [facility] [id number] LDL/HDL Ratio 0.8 {ratio_units} (Normal) Range: 0.0-3.2 [...] Cholesterol, Total 161 mg/dL (Normal) Range: 100-199 26-Dqy-833954:36 LDH (LD) (LACTATE DEHYDROGENASE) Comments: PATIENT WAS FASTINGPERFORMED BY: Chamson GroupVirtua BerlinSuvpxj5752 [facility] [id number] (72068) LDH 217 [iU]/L (Normal) Range: 119-226 01-Wdl-349058:36 CBC W/AUTO DIFF WBC (45246) Comments: PATIENT WAS FASTINGPERFORMED BY: Chamson GroupVirtua BerlinAmxzxi4006 [facility] [id number] Immature Grans (Abs) 0.0 {x10E3/uL} (Normal) Range: [...] 3.77-5.28 WBC 10.6 {x10E3/uL} (Normal) Range: 3.4-10.8 23-Mot-317014:36 METABOLIC PANEL, COMPREHENSIVE Comments: PATIENT WAS FASTINGPERFORMED BY: LabCoVirtua BerlinPudlgh2177 [facility] [id number] (84052) ALT (SGPT) 15 [iU]/L (Normal) Range: 0-32 [...] Glucose, Serum 137 mg/dL (Abnormal) Range: 65-99 26-Etw-271520:36 TSH (74950) Comments: PATIENT WAS FASTINGPERFORMED BY: Upptalk70 [address] [facility] [id number] TSH 0.560 {uIU/mL} (Normal) Range: 0.450-4.500 :02 Renal function Panel (03373) Comments: PATIENT WAS FASTINGPERFORMED BY: Upptalk70 [facility] [id number] Albumin, Serum 3.7 g/dL (Normal) Range: 3.5-4.8 [...] 137 mg/dL (Abnormal) Range: 65-99 :02 MAGNESIUM (82681) Comments: PATIENT WAS FASTINGPERFORMED BY: Xinrong [facility] [id number] Magnesium, Serum 2.2 mg/dL (Normal) Range: 1.6-2.3 :02 MICROALBUMIN: CREATININE RATIO Comments: PATIENT WAS FASTINGPERFORMED BY: LabCoVirtua BerlinMnvcwr3348 [facility] [id number] (56757) AND (33938) Microalb/Creat Ratio 2038.7 {mg/g_creat} (Abnormal) Range: 0.0-30.0 Microalbumin, Urine 1223.2 ug/mL (Normal) Comments: Results confirmed ondilution. Creatinine, Urine 60.0 mg/dL (Normal) :02 CBC WITH MANUAL DIFF Comments: PATIENT WAS FASTINGPERFORMED BY: LabCoVirtua BerlinHrevhf1282 [facility] [id number] Information: [id number] CC:[id number] (09385) Immature Grans (Abs) 0.0 {x10E3/uL} (Normal) Range: [...] {x10E3/uL} (Normal) Range: 3.4-10.8 :02 HGB A1C (40654) Comments: PATIENT WAS FASTINGPERFORMED BY: [employer] Njzsmw5967 [facility] [id number] Hemoglobin A1c 6.4 % (Abnormal) Range: 4.8-5.6 Comments: . Pre-diabetes: 5.7 - 6.4 Diabetes: >6.4 Glycemic control for adults with diabetes: <7.0 :02 Lipid Panel (02363) Comments: PATIENT WAS FASTINGPERFORMED BY: [employer] Spmzqo4025 [facility] [id number] LDL/HDL Ratio 1.1 {ratio_units} (Normal) Range: 0.0-3.2 [...] (Normal) Range: 100-199 :03 HgA1C , Office (12418) HgA1C , Office 6.1 % (Normal) Range: 4.6 - 7.1 :24 CBC W/AUTO DIFF WBC Comments: PATIENT WAS FASTINGPERFORMED BY: [facility]ams[facility] GroupVirtua BerlinHzlfrr4216 [facility] [id number] Information: [id number] (91305) Immature Grans (Abs) 0.0 {x10E3/uL} (Normal) Range: [...] 3.77-5.28 WBC 4.0 {x10E3/uL} (Normal) Range: 3.4-10.8 06-Jun-20158:24 MICROALBUMIN: CREATININE RATIO Comments: PATIENT WAS FASTINGPERFORMED BY: LabCoVirtua BerlinGewvpx7127 [facility] [id number] (31265) AND (77093) Microalb/Creat Ratio 1223.8 {mg/g_creat} (Abnormal) Range: 0.0-30.0 Microalbumin, Urine 1012.1 ug/mL (Abnormal) Range: 0.0-17.0 Comments: Results confirmed ondilution. Creatinine, Urine 82.7 mg/dL (Normal) Range: 15.0-278.0 :24 METABOLIC PANEL, COMPREHENSIVE Comments: PATIENT WAS FASTINGPERFORMED BY: [employer]70 [facility] [id number] (21575) ALT (SGPT) 12 [iU]/L (Normal) Range: 0-32 [...] mg/dL (Abnormal) Range: 65-99 :24 LIPID PANEL (90986) Comments: PATIENT WAS FASTINGPERFORMED BY: [employer]6370 [facility] [id number] LDL/HDL Ratio 1.1 {ratio_units} (Normal) Range: 0.0-3.2 [...] Cholesterol, Total 150 mg/dL (Normal) Range: 100-199 77-Ygo-05904:30 CBC W/Diff, Automated Comments: [facility] [address]ubptq[address] [place], [place], [id number] Absolute Lymph 0.83 {X10_3/ul} (Normal) Range: 0.83-4.51 [...] (Normal) Range: 4.4-11.0 :30 Hemoglobin A1c Comments: [facility] Phhxpsjuqx92[address] [place], [place], [address] HGB A1C 6.1 % (Normal) Range: 4.2-6.3 :30 Magnesium Comments: [facility] [address] [place], [place], [address] MG 1.8 mg/dL (Normal) Range: 1.8-2.4 :30 Protein+Creatinine Ratio,Urine Comments: [facility] Osdoddlntz64[address] [place], [place], [address] PROT:CRE RATIO 2121 {mg/g_CRE} (Abnormal) Range: 0-200 PROTEIN,UR.RAN. 164.2 mg/dL (Abnormal) UR CREAT 77.40 mg/dL (Normal) :30 Renal Profile Comments: [address] [place], [place], [id number] CO2 27.0 mmol/L (Normal) Range: 21.0-32.0 CL [...] 126 mg/dLsuggests DIABETES MELLITUS per A.D.A. criteria. 28-Gxk-36709:00 24 HR UR Creatinine Clearance Comments: [facility] [address]hlwbqj[address] [place], [place], [address] CREAT CLEARANCE 24 ml/min (Abnormal) Range: 100-200 URINE CREAT 20.6 mg/dL (Normal) EST GFR - AA 38 mL/min (Abnormal) Comments: GFR Calc EST GFR 31 mL/min (Abnormal) Comments: Non- GFR Calc SERUM CREAT 1.7 mg/dL (Abnormal) Range: 0.6-1.0 UR TOTAL VOLUME 2800 mL (Normal) UR COLLECT TIME 24.0 {HOURS} (Normal) 09-Htk-91106:00 Protein, Urine 24HR Comments: [facility] Kbyqyllqar[address] [place], [place], [address] 24hr UR PROTEIN 1178.8 {mg/24HR} (Abnormal) URINE PROTEIN 42.1 mg/dL (Abnormal) UR TOTAL VOLUME 2800 mL (Normal) UR COLLECT TIME 24.0 {HOURS} (Normal) 5-Fuj-294404:29 Metabolic Panel, Basic Comments: PATIENT NOT FASTINGPERFORMED BY: [facility] Vokiox8059 [facility] [id number] Information: [id number] (36642) Calcium, Serum 9.3 mg/dL (Normal) Range: 8.7-10.3 [...] Basic Comments: tuesday; PATIENT NOT FASTINGPERFORMED BY: Ch[facility] GroupVirtua BerlinYimetw2709 [facility] [id number] Information: [id number] (91601) Calcium, Serum 9.0 mg/dL (Normal) Range: 8.7-10.3 [...] Glucose, Serum 149 mg/dL (Abnormal) Range: 65-99 28-Qxa-788303:32 HgA1C , Office (13634) HgA1C , Office 6.2 % (Normal) Range: 4.6 - 7.1 :31 Rapid Strep Test, Office (31034) Comments: neg Rapid Strep Test, Office Negative (Normal) :06 THROAT CULTURE (29603) Comments: PATIENT NOT FASTINGPERFORMED BY: [facility]6370 [facility] [id number] Information: [id number] Result 1 RRF (Normal) Comments: Routine respiratory luis Upper Respiratory Culture Final report (Normal) :52 TSH (48593) Comments: PATIENT WAS FASTINGPERFORMED BY: [facility]6370 [facility] [id number] TSH 2.190 {uIU/mL} (Normal) Range: 0.450-4.500 :52 Vitamin D Hydroxy (03152) Comments: PATIENT WAS FASTINGPERFORMED BY: [employer] Frwuts2874 [facility] [id number] Vitamin D, 25-Hydroxy 43.8 ng/mL (Normal) Range: 30.0-100.0 Comments: Vitamin D deficiency has been defined by the [place] ofMedicine and an Endocrine Society practice guideline as alevel of serum 25-OH vitamin D less than 20 ng/mL (1,2).The Endocrine Society went on to further define vitamin Dinsufficiency as a level between 21 and 29 ng/mL (2).1. IOM ([place] of Medicine). 2010. Dietary reference intakes for calcium and D. [place]: The National Academies Press.2. Mira MF, Rosette NC, Tommy SWAIN, et al. Evaluation, treatment, and prevention of vitamin D deficiency: an Endocrine Society clinical practice guideline. JCEM. 2010; 96(7):1911-30. :52 LIPID PANEL (14789) Comments: PATIENT WAS FASTINGPERFORMED BY: [employer] Mfqcaf6312 [facility] [id number] LDL/HDL Ratio 1.3 {ratio_units} (Normal) Range: 0.0-3.2 [...] auto diff Comments: PATIENT WAS FASTINGPERFORMED BY: [employer] Ptamoo0928 [facility] [id number] Information: [id number] (72357) Immature Grans (Abs) 0.0 {x10E3/uL} (Normal) Range: [...] PANEL, COMPREHENSIVE Comments: PATIENT WAS FASTINGPERFORMED BY: [facility] HospitalCoVirtua BerlinHlzlwe3221 [facility] [id number] (90288) ALT (SGPT) 19 [iU]/L (Normal) Range: 0-32 [...] Glucose, Serum 127 mg/dL (Abnormal) Range: 65-99 6-Zdn-006520:08 HgA1C , Office (12452) HgA1C , Office 6.4 % (Normal) Range: 4.6 - 7.1 4-Kgr-956053:00 Creatinine Clearance Comments: PATIENT NOT FASTINGPERFORMED BY: LabCoVirtua BerlinGehuei6869 [facility] [id number] Information: [id number] S TART Creatinine Clearance 33 mL/min (Abnormal) Range: 88-128 Comments: The above range is based on 1.73 square meter average body surfacearea. Creatinine, Ur 24hr 642.0 {mg/24_hr} (Abnormal) Range: 800.0-1800.0 Creatinine, Urine 34.7 mg/dL (Normal) Range: 15.0-278.0 eGFR If Africn Am 43 mL/min/1.73 (Abnormal) eGFR If NonAfricn Am 37 mL/min/1.73 (Abnormal) Creatinine, Serum 1.37 mg/dL (Abnormal) Range: 0.57-1.00 :00 Protein Total, Qn, 24-Hr Comments: PATIENT NOT FASTINGPERFORMED BY: [facility] Xxfkyz3750 [address] [place] [id number] Urine Prot,24hr calculated 1309.8 {mg/24_hr} (Abnormal) Range: 30.0-150.0 Protein,Total,Urine 70.8 mg/dL (Abnormal) Range: 0.0-15.0 :01 CBC W/Diff, Automated Comments: Test performed at:[facility] Kflqmnuapw7[address] [place], [place] [id number] Absolute Neut 3.1 {X10_3/uL} (Normal) Range: 2.0-7.7 [...] Range: 4.4-11.0 :01 Magnesium Comments: Test performed at:[facility] Ocozhywava8636 [facility] [place] [address] MG 2.0 mg/dL (Normal) Range: 1.8-2.4 :01 Protein+Creatinine Ratio,Urine Comments: Test performed at:[facility] Qqliioygxn62[address] [place] [address] PROT:CRE RATIO 2232 {mg/g_CRE} (Abnormal) Range: 0-200 PROTEIN,UR.RAN. 160.3 mg/dL (Abnormal) UR CREAT 71.8 mg/dL (Normal) :01 Renal Profile Comments: Test performed at:[facility] [address] [place] [address] CO2 32.0 mmol/L (Normal) Range: 21.0-32.0 CL [...] mg/dL (Normal) Range: 70-110 :08 LIPID PANEL (21437) Comments: PATIENT WAS FASTINGPERFORMED BY: LabCoVirtua BerlinKwxmzd0365 [facility] [id number] LDL/HDL Ratio 1.0 {ratio_units} (Normal) Range: 0.0-3.2 [...] Cholesterol, Total 149 mg/dL (Normal) Range: 100-199 41-Duj-64542:08 METABOLIC PANEL, Comments: PATIENT WAS FASTINGPERFORMED BY: LabCoVirtua BerlinDokawe2429 [facility] [id number] Information: [id number] COMPREHENSIVE (52584) ALT (SGPT) 29 [iU]/L (Normal) Range: 0-32 [...] Glucose, Serum 159 mg/dL (Abnormal) Range: 65-99 6-Cud-298709:59 HgA1C , Office (75565) HgA1C , Office 6.5 % (Normal) Range: 4.6 - 7.1 :54 CBC W/AUTO DIFF WBC Comments: PATIENT WAS FASTINGPERFORMED BY: EVE Chamson GroupPresbyterian HospitalEmmkdw3986 [facility] [id number] Information: [id number] (56903) Immature Grans (Abs) 0.0 {x10E3/uL} (Normal) Range: [...] PANEL, COMPREHENSIVE Comments: PATIENT WAS FASTINGPERFORMED BY: [facility] GroupVirtua BerlinIakzmq0969 [facility] [id number]; non- emergent till apt (14943) ALT (SGPT) 13 [iU]/L (Normal) Range: 0-32 [...] Glucose, Serum 142 mg/dL (Abnormal) Range: 65-99 26-Kxg-99249:54 LIPID PANEL (52249) Comments: PATIENT WAS FASTINGPERFORMED BY: LabCoVirtua BerlinCpbotq1845 [facility] [id number] LDL/HDL Ratio 1.1 {ratio_units} (Normal) Range: 0.0-3.2 [...] (Normal) Range: 100-199 :29 HgA1C , Office (37593) HgA1C , Office 6.6 % (Normal) Range: 4.6 - 7.1 :12 CBC W/Diff, Automated Comments: Test performed at:[facility] Fngsbufhmd[address] [place] [address] ; handled by Dr. Santana Absolute Lymph [...] Range: 4.4-11.0 :12 Magnesium Comments: Test performed at:[facility] Ynjfuaidbe[address] [place] [address] MG 2.0 mg/dL (Normal) Range: 1.8-2.4 :12 Microalb:Creat Ratio,Random UR Comments: Test performed at:[facility] Jtajypkmfb0356 [place] [address] ; Dr. Angelo LING:CREAT 1483.0 {mg/g_CRE} (Abnormal) MICROALBUMIN,UR 918.0 mg/L (Normal) UR CREAT 61.9 mg/dL (Normal) :12 Renal Profile Comments: Test performed at:[facility] Vtzhswixvf[address] [place] [address] CO2 29.0 mmol/L (Normal) Range: 21.0-32.0 CL [...] 126 mg/dLsuggests DIABETES MELLITUS per A.D.A. criteria. 07-Jfp-431101:20 LIPID PANEL (93557) Comments: PATIENT WAS FASTINGPERFORMED BY: [facility] Hrmxee9696 [facility] [id number] LDL/HDL Ratio 1.0 {ratio_units} (Normal) Range: 0.0-3.2 [...] Cholesterol, Total 151 mg/dL (Normal) Range: 100-199 98-Jst-613446:20 METABOLIC PANEL, Comments: PATIENT WAS FASTINGPERFORMED BY: LabCoVirtua BerlinUkgjaz4025 [facility] [id number] Information: [id number] COMPREHENSIVE (98950) ALT (SGPT) 16 [iU]/L (Normal) Range: 0-32 [...] Glucose, Serum 148 mg/dL (Abnormal) Range: 65-99 44-Blz-798060:21 CREATININE CLEARANCE Comments: PATIENT WAS FASTINGPERFORMED BY: [facility] GroupVirtua BerlinElfxxa6932 [facility] [id number] Information: [id number] START 04/02/14@9AM FINISH 04/03/14 6:00 AM (68920) Creatinine Clearance 42 mL/min (Abnormal) Range: 88-128 Comments: The above range is based on 1.73 square meter average body surfacearea. Creatinine, Ur 24hr 812.3 {mg/24_hr} (Normal) Range: 800.0-1800.0 Creatinine, Urine 28.5 mg/dL (Normal) Range: 15.0-278.0 eGFR If Africn Am 45 mL/min/1.73 (Abnormal) eGFR If NonAfricn Am 39 mL/min/1.73 (Abnormal) Creatinine, Serum 1.33 mg/dL (Abnormal) Range: 0.57-1.00 94-Wap-386582:21 Total Protein,24 Hour Urine Comments: PATIENT WAS FASTINGPERFORMED BY: Ch[facility] GroupVirtua BerlinIirxbd9600 [facility] [id number] (07252) Prot,24hr calculated 1559.0 {mg/24_hr} (Abnormal) Range: 30.0-150.0 Protein,Total,Urine 54.7 mg/dL (Abnormal) Range: 0.0-15.0 :57 LIPID PANEL (13180) Comments: PATIENT WAS FASTINGPERFORMED BY: Ch[facility] GroupVirtua BerlinNvccda6342 [facility] [id number] LDL/HDL Ratio 1.1 {ratio_units} (Normal) Range: 0.0-3.2 [...] MANUAL DIFF Comments: PATIENT WAS FASTINGPERFORMED BY: LabCoVirtua BerlinQqfjzd7460 [facility] [id number] Information: [id number] (02933) Immature Grans (Abs) 0.0 {x10E3/uL} (Normal) Range: [...] PANEL, COMPREHENSIVE Comments: PATIENT WAS FASTINGPERFORMED BY: [facility] SurgeryCo[address] [id number] (27763) ALT (SGPT) 10 [iU]/L (Normal) Range: 0-32 [...] Comments: Result Units: mg/dL AdultPerformed at: - LabCo[address] [id number] Director: Yousuf Bernardo PhD, Phone: [phone] C4 37 (Abnormal) Range: 9-36 0 [...] :00 MG 1.8 mg/dL (Normal) Range: 1.8-2.4 : PHOS 4.1 mg/dL (Normal) Range: 2.5-4.9 :00 PROCRER tPROCRER 1533 {mg/g_CRE} (Abnormal) Range: 0-200 PROUR 75.6 mg/dL (Abnormal) CREU 49.3 mg/dL (Normal) 70-Rzb-55584:21 CBC WITH MANUAL DIFF Comments: PATIENT WAS FASTINGPERFORMED BY: [facility] Fyzfxf0571 [facility] [id number] Information: [id number] (33948) Immature Grans (Abs) 0.0 {x10E3/uL} (Normal) Range: [...] 3.77-5.28 WBC 4.5 {x10E3/uL} (Normal) Range: 3.4-10.8 95-Och-95282:21 METABOLIC PANEL, COMPREHENSIVE Comments: PATIENT WAS FASTINGPERFORMED BY: [facility] Ldbbbo6198 [facility] [id number] (41187) ALT (SGPT) 16 [iU]/L (Normal) Range: 0-32 [...] Glucose, Serum 132 mg/dL (Abnormal) Range: 65-99 43-Nwt-625182:53 CREATININE CLEARANCE Comments: PATIENT NOT FASTINGPERFORMED BY: [employer] [facility] [id number] Information: [id number] START 10/30/13@8AM F INISH 10/31/13@8AM 2650ML (99637) Creatinine Clearance 44 mL/min (Abnormal) Range: 88-128 Comments: The above range is based on 1.73 square meter average body surfacearea. Creatinine, Ur 24hr 877.2 {mg/24_hr} (Normal) Range: 800.0-1800.0 Creatinine, Urine 33.1 mg/dL (Normal) Range: 15.0-278.0 eGFR If Africn Am 44 mL/min/1.73 (Abnormal) eGFR If NonAfricn Am 38 mL/min/1.73 (Abnormal) Creatinine, Serum 1.37 mg/dL (Abnormal) Range: 0.57-1.00 90-Huz-305980:53 Total Protein,24 Hour Urine Comments: PATIENT NOT FASTINGPERFORMED BY: [employer]6370 [facility] [id number] (47442) Prot,24hr calculated 3458.3 {mg/24_hr} (Abnormal) Range: 30.0-150.0 Protein,Total,Urine 130.5 mg/dL (Abnormal) Range: 0.0-15.0 36-Mfs-723218:31 HgA1C , Office (10748) HgA1C , Office 6.4 % (Normal) Range: 4.6 - 7.1 33-Irr-838718:27 Microscopic Examination Comments: PATIENT WAS FASTINGPERFORMED BY: cartmi RoadDublin [place] [id number] Bacteria Few (Normal) Mucus Threads Present (Normal) Epithelial Cells (non renal) 0-10 {/hpf} (Normal) Range: 0 - 10 RBC 3-10 {/hpf} (Abnormal) Range: 0 - 2 WBC 6-10 {/hpf} (Abnormal) Range: 0 - 5 :32 LIPID PANEL (78782) Comments: PATIENT WAS FASTINGPERFORMED BY: [facility]6370 [facility] [id number] LDL/HDL Ratio 1.0 {ratio_units} (Normal) Range: 0.0-3.2 [...] CREATININE RATIO Comments: PATIENT WAS FASTINGPERFORMED BY: [facility]6370 [facility] [id number] (48088) AND (91039) Microalb/Creat Ratio 1998.9 {mg/g_creat} (Abnormal) Range: 0.0-30.0 Creatinine, Urine 73.4 mg/dL (Normal) Range: 15.0-278.0 Microalbumin, Urine 1467.2 ug/mL (Abnormal) Range: 0.0-17.0 :32 URINALYSIS, W/ MICRO (66153) Comments: PATIENT WAS FASTINGPERFORMED BY: [facility]6370 [facility] [id number] Microscopic Examination See below: (Normal) Comments: Microscopic was indicated and was performed. Nitrite, Urine Negative (Normal) Urobilinogen,Semi-Qn 0.2 mg/dL (Normal) Range: 0.0-1.9 Bilirubin Negative (Normal) Occult Blood Trace (Abnormal) Ketones Negative (Normal) Glucose Negative (Normal) Protein 3+ (Abnormal) WBC Esterase Trace (Abnormal) Appearance Clear (Normal) Urine-Color Yellow (Normal) pH 6.5 (Normal) Range: 5.0-7.5 Specific Sharon 1.015 (Normal) Range: 1.005-1.030 :32 CBC WITH MANUAL DIFF Comments: PATIENT WAS FASTINGPERFORMED BY: [facility]Select [facility]6370 [facility] [id number] Information: [id number] (18310) Immature Grans (Abs) 0.0 {x10E3/uL} (Normal) Range: [...] COMPREHENSIVE Comments: PATIENT WAS FASTINGPERFORMED BY: [facility] [employer] Dprymy0928 [facility] [id number] (48105) ALT (SGPT) 16 [iU]/L (Normal) Range: 0-32 [...] B-12 (CYANOCOBALAMIN) Comments: PATIENT WAS FASTINGPERFORMED BY: LabCoVirtua BerlinIbrcac3842 [facility] [id number] (86481) Vitamin B12 >1999 pg/mL (Abnormal) Range: 211-946 71-Xvv-547406:01 HgA1C , Office (81262) HgA1C , Office 6.4 % (Normal) Range: 4.6 - 7.1 :37 METABOLIC PANEL, COMPREHENSIVE Comments: PATIENT WAS FASTINGPERFORMED BY: [employer] Mspplx9309 [facility] [id number] (66713) ALT (SGPT) 12 [iU]/L (Normal) Range: 0-32 [...] (Abnormal) Range: 65-99 :37 Vitamin D Hydroxy (39901) Comments: PATIENT WAS FASTINGPERFORMED BY: [employer] Zbfjlt8649 [facility] [id number] Vitamin D, 25-Hydroxy 47.4 ng/mL (Normal) Range: 30.0-100.0 Comments: Vitamin D deficiency has been defined by the [place] ofMedicine and an Endocrine Society practice guideline as alevel of serum 25-OH vitamin D less than 20 ng/mL (1,2).The Endocrine Society went on to further define vitamin Dinsufficiency as a level between 21 and 29 ng/mL (2).1. IOM ([place] of Medicine). 2010. Dietary reference intakes for calcium and D. [place]: The National Academies Press.2. Mira MF, Rosette LOPEZ, Tommy SWAIN, et al. Evaluation, treatment, and prevention of vitamin D deficiency: an Endocrine Society clinical practice guideline. JCEM. 2010; 96(7):1911-30. :37 LIPID PANEL (94939) Comments: PATIENT WAS FASTINGPERFORMED BY: Upptalk70 [facility] [id number] LDL/HDL Ratio 1.2 {ratio_units} (Normal) Range: 0.0-3.2 [...] MANUAL DIFF Comments: PATIENT WAS FASTINGPERFORMED BY: LabLooxcie Vrpkwv4635 [facility] [id number] Information: [id number] (53852) Immature Grans (Abs) 0.0 {x10E3/uL} (Normal) Range: [...] Qn, 24-Hr Comments: PATIENT NOT FASTINGPERFORMED BY: [employer] Ntdiak4587 [facility] [id number] Information: ADD [id number] AND DRAW FEE 99 6660 VOLUME 2600 164LBS 5' '3 Urine Prot,24hr calculated 920.4 {mg/24_hr} Range: 30.0-150.0 (Abnormal) Protein,Total,Urine 35.4 mg/dL Range: 0.0-15.0 (Abnormal) : Written Authorization WAR (Normal) Comments: PATIENT NOT FASTINGPERFORMED BY: [facility] SurgeryC[facility] Wqerre8359 [facility] [id number] Comments: Written Authorization Received.Authorization received from Chiqui BRICEÑO LPN [id number] by Marleen Sharma :52 Metabolic Panel, Basic Comments: PATIENT NOT FASTINGPERFORMED BY: [facility] SurgeryC[facility] Mtdsug8800 [facility] [id number] Information: ADD [id number] AND DRAW FEE 99 6660 VOLUME 2600 164LBS 5' '3 (08726) Calcium, Serum 9.7 mg/dL (Normal) Range: 8.6-10.2 [...] mg/dL (Abnormal) Range: 65-99 :52 CREATININE CLEARANCE (99194) Comments: PATIENT NOT FASTINGPERFORMED BY: [employer]ieslin6370 [facility] [id number] Creatinine Clearance 46 mL/min (Abnormal) Range: 88-128 Comments: The above range is based on 1.73 square meter average body surfacearea. Creatinine, Ur 24hr 899.6 {mg/24_hr} (Normal) Range: 800.0-1800.0 Creatinine, Urine 34.6 mg/dL (Normal) Range: 15.0-278.0 :52 24 hour urine for Protein Comments: PATIENT NOT FASTINGPERFORMED BY: [employer] LabCoGirafficLthmgo9172 [facility] [id number] (80438) Microalb/Creat Ratio 695.4 {mg/g_creat} (Abnormal) Range: 0.0-30.0 Microalbumin, Urine 240.6 ug/mL (Abnormal) Range: 0.0-17.0 :13 HgA1C , Office (03810) HgA1C , Office 6.3 % (Normal) Range: 4.6 - 7.1 :01 Blood Glucose , Office (94084) Blood Glucose , Office 162 (Normal) 12-Vws-176145:02 Microscopic Examination Comments: PATIENT NOT FASTINGPERFORMED BY: [facility] Nbqqgv8508 [address] [place] [id number] Bacteria Few (Normal) Mucus Threads Present (Normal) Epithelial Cells (non renal) 0-10 {/hpf} (Normal) Range: 0 - 10 RBC 0-3 {/hpf} (Normal) Range: 0 - 3 WBC 0-5 {/hpf} (Normal) Range: 0 - 5 66-Qbs-608573:43 ABDOMEN/PELVIS WITH CONTRAST Radiology Report See Note [...] Hebert M.D.October 19, 2012 at 2:42:14 PM [phone] Signed GP/GP If you are the referring physician and would like to consult [facility] theradiologist who provided this interpretation, please contact Yasmany Pond at [phone]. If this radiologist is unavailable, youwill be directed to another radiologist to assist. If y ou are a patient with a question regarding this report, pleasecontactyour referring physician directly. Professional Interpretation Provided By: [employer], Phone , These documents contain legally protected [...] 10/19/12 1444 Sign by: Misael Hebert MD 54-Znz-368598:59 TSH (97550) Comments: PATIENT WAS FASTINGPERFORMED BY: LabCoVirtua BerlinLspjtd9075 [facility] [id number] TSH 1.230 {uIU/mL} (Normal) Range: 0.450-4.500 90-Mxu-470629:59 LIPID PANEL (32459) Comments: PATIENT WAS FASTINGPERFORMED BY: [facility]6370 [facility] [id number] LDL/HDL Ratio 0.5 {ratio_units} (Normal) Range: 0.0-3.2 LDL Cholesterol Calc 47 mg/dL (Normal) Range: 0-99 Cholesterol, Total 149 mg/dL (Normal) Range: 100-199 HDL Cholesterol 91 mg/dL (Normal) Comments: According to ATP-III Guidelines, HDL-C >59 mg/dL is considered anegative risk factor for CHD. Triglycerides 57 mg/dL (Normal) Range: 0-149 VLDL Cholesterol Cesar 11 mg/dL (Normal) Range: 5-40 40-Oit-326289:02 URINALYSIS, W/ MICRO Comments: PATIENT NOT FASTINGPERFORMED BY: [facility]6370 [facility] [id number] Information: [id number] (52783) Microscopic Examination See below: (Normal) Nitrite, Urine Negative (Normal) Bilirubin Negative (Normal) Urobilinogen,Semi-Qn 0.2 mg/dL (Normal) Range: 0.0-1.9 Occult Blood Negative (Normal) Ketones Negative (Normal) Glucose Negative (Normal) Protein 3+ (Abnormal) WBC Esterase Negative (Normal) Appearance Clear (Normal) Urine-Color Yellow (Normal) pH 5.5 (Normal) Range: 5.0-7.5 Specific Sharon 1.015 (Normal) Range: 1.005-1.030 [id number] CBC WITH MANUAL DIFF Comments: PATIENT WAS FASTINGPERFORMED BY: [facility] [id number] Information: [id number] ([id number]) Immature Grans (Abs) 0.0 {x10E3/uL} (Normal) Range: [...] 3.77-5.28 WBC 4.8 {x10E3/uL} (Normal) Range: 3.4-10.8 [id number] METABOLIC PANEL, COMPREHENSIVE Comments: PATIENT WAS FASTINGPERFORMED BY: [facility] [id number] [id number] ([id number]) ALT (SGPT) 14 [iU]/L (Normal) Range: 0-32 [...] Glucose, Serum 104 mg/dL (Abnormal) Range: 65-99 [id number]-[id number] HgA1C , Office ([id number]) HgA1C , Office 6.0 % (Normal) Range: 4.6 - 7.1 3-Sro-316928:31 CRE CREAT 1.3 mg/dL (Abnormal) Range: 0.6-1.0 [...] Galan M.D.August 09, 2012 at 2:38:03 PM [id number] Signed PV/PV If you are the referring physician and would like to consult with theradiologist who provided this interpretation, please contact Donna Burnett M.D. at [phone]. If this radiologist is unavailable, youwillbe directed to another radiologist to assist. If you are a patient with a question regarding this report, pleasecontactyour referring physician evelyne carreractcelestino. Professional Interpretation Provided By: [employer], Phone , These documents contain legally protected [...] 08/09/12 1441 Sign by: Donna Martin MD 36-Tdp-014266:31 CBC with manual diff Comments: PATIENT NOT FASTINGPERFORMED BY: LabCoVirtua BerlinMgjyxu8203 [facility] [id number] Information: [id number] (16783) Immature Grans (Abs) 0.0 {x10E3/uL} (Normal) Range: [...] Panel, Comprehensive Comments: PATIENT NOT FASTINGPERFORMED BY: EVE LabCoVirtua BerlinVdmizk0796 [facility] [id number] (06565) ALT (SGPT) 19 [iU]/L (Normal) Range: 0-32 [...] mg/dL (Abnormal) Range: 65-99 :31 LIPID PANEL (86105) Comments: PATIENT WAS FASTINGPERFORMED BY: EVE Chamson GroupVirtua BerlinBhytjt6511 [facility] [id number] LDL/HDL Ratio 0.8 {ratio_units} (Normal) Range: 0.0-3.2 [...] MANUAL DIFF Comments: PATIENT WAS FASTINGPERFORMED BY: Chamson GroupVirtua BerlinPnojqz5418 [facility] [id number] Information: [id number] (48493) Immature Grans (Abs) 0.0 {x10E3/uL} (Normal) Range: [...] PANEL, COMPREHENSIVE Comments: PATIENT WAS FASTINGPERFORMED BY: LabCoVirtua BerlinCazitc5506 [facility] [id number] (88730) ALT (SGPT) 22 [iU]/L (Normal) Range: 0-32 [...] (Abnormal) Range: 65-99 :45 HgA1C , Office (88266) HgA1C , Office 6.1 % (Normal) Range: 4.6 - 7.1 27-Cqg-577039:16 CRE CREAT 1.1 mg/dL (Abnormal) Range: 0.6-1.0 88-Acq-35587:00 BRAIN W/WO CONTRAST Radiology Report See Note [...] Galan M.D.February 02, 2012 at 5:10:18 PM [id number] Signed PV/PV If you are the referring physician and w ould like to consult with theradiologist who provided this interpretation, please contact Donna Burnett M.D. at [phone]. If this radiologist is unavailable, youwillbe directed to another radiol ogist to assist. If you are a patient with a question regarding this report, pleasecontactyour referring physician directly. Professional Interpretation Provided By: [employer], Phone ,Fa x [phone] These documents contain legally protected and confidential [...] on 02/02/12 1255 by Mario MANN,DonnaTranscribed on 02/02/121712 by ITS IMPORTSign by Donna Martin MD on 02/02/121713 S ign by: Donna Martin MD 87-Tio-277989:16 DEXA BONE DENSITY STUDY (HP) Radiology Report [...] Coronel M.D.January 20, 2012 at 2:43:46 PM [phone] Signed KERA/KERA If you ar e the [...] 01/20/12 1447 Sign by: David Coronel MD 08-Hob-050826:15 BILAT SCRN DIGITAL & CAD Radiology Report [...] Coronel M.D.January 20, 2012 at 1:20:11 PM [phone] Signed KERA/KERA If you are the referring physician and would like to consult with theradiologist who provided this interpretation, please contact Yasmany Parnell at . If this radiologist is unavailable,youwill be directed to another radiologist to assist. If you are a patient with a question regarding this report, pleasecontactyour referring physician directly. Professional Interpretation Provided By: [employer], Phone , These documents contain legally protected [...] 01/20/12 1324 Sign by: David Coronel MD 1-Xwg-386969:56 PELVIC (NON ) Radiology Report See Note [...] Vuong M.D.January 10, 2012 at 8:39:09 PM [id number] Signed JL/JOHNNY If you are the referring physician and would like to consult with theradiologist who provided this inte rpretation, please contact Radha Vuong M.D. at [phone]. If this radiologist is unavailable, you will bedirected to another radiologist to assist. If you are a patient with a question regarding this r eport, pleasecontactyour referring physician directly. Professional Interpretation Provided By: [employer], Phone , PROCEDURE: ULTRASOUND OF THE FEMALE [...] Vuong M.D.January 10, 2012 at 8:40:07 PM [phone] Signed JL/JL If you are the referring physician and would like to consult with theradiologist who provided this interpretation, please contact Radha Vuong M.D. at [phone]. If this radiologist is unavailable, you will bedirected to another radiologist to assist. If you are a patient with a question regarding this report, pleasecontactyour referring ph ysician directly. Professional Interpretation Provided By: [employer], Phone , These documents contain legally protected [...] Dictated on 01/10/12 1309 by Nahum VUONG MDlittle [facility] of m[facility] ribed on 01/11/12 1113 by ITS IMPORTSign by RADHA VUONG MD on 01/11/12 1114 Sign by: RADHA VUONG MD 80-Dca-95628:35 MICROALBUMIN: CREATININE RATIO Comments: PATIENT WAS FASTINGPERFORMED BY: Chamson GroupVirtua BerlinZknvlb9001 [facility] [id number] (38022) AND (76125) Microalb/Creat Ratio 829.4 {mg/g_creat} (Abnormal) Range: 0.0-30.0 Microalbumin, Urine 437.1 ug/mL (Abnormal) Range: 0.0-17.0 Creatinine, Urine 52.7 mg/dL (Normal) Range: 15.0-278.0 01-Awb-20937:35 CBC WITH MANUAL DIFF Comments: PATIENT WAS FASTINGPERFORMED BY: Chamson GroupVirtua BerlinUurkti6389 [facility] [id number] Information: [id number] (38360) Immature Grans (Abs) 0.0 {x10E3/uL} (Normal) Range: [...] PANEL, COMPREHENSIVE Comments: PATIENT WAS FASTINGPERFORMED BY: Upptalk70 [facility]ALSUNC [facility] [id number] (75405) ALT (SGPT) 15 [iU]/L (Normal) Range: 0-32 [...] mg/dL (Abnormal) Range: 65-99 :35 LIPID PANEL (42999) Comments: PATIENT WAS FASTINGPERFORMED BY: Upptalk70 [facility] [id number] LDL/HDL Ratio 0.9 {ratio_units} (Normal) Range: 0.0-3.2 LDL Cholesterol Calc 72 mg/dL (Normal) Range: 0-99 HDL Cholesterol 83 mg/dL (Normal) Comments: According to ATP-III Guidelines, HDL-C >59 mg/dL is considered anegative risk factor for CHD. VLDL Cholesterol Cesar 18 mg/dL (Normal) Range: 5-40 Triglycerides 90 mg/dL (Normal) Range: 0-149 Cholesterol, Total 173 mg/dL (Normal) Range: 100-199 :15 HgA1C , Office (91524) HgA1C , Office 6.2 % (Normal) Range: 4.6 - 7.1 :30 CBC WITH MANUAL DIFF Comments: PATIENT WAS FASTINGPERFORMED BY: [facility] Mfeueb0975 [facility] [id number] Information: [id number] (49049) Immature Grans (Abs) 0.0 {x10E3/uL} (Normal) Range: [...] 3.77-5.28 WBC 4.2 {x10E3/uL} (Normal) Range: 4.0-10.5 69-Zdv-25061:30 METABOLIC PANEL, COMPREHENSIVE Comments: PATIENT WAS FASTINGPERFORMED BY: [facility]6370 [facility] [id number] (96587) ALT (SGPT) 19 [iU]/L (Normal) Range: 0-40 [...] mg/dL (Abnormal) Range: 65-99 :30 LIPID PANEL (01320) Comments: PATIENT WAS FASTINGPERFORMED BY: [facility] Moqefg0831 [place] [id number] LDL/HDL Ratio 0.9 {ratio_units} (Normal) Range: 0.0-3.2 [...] 100-199 Comments: Please note reference interval change 31-Gfo-265750:48 Rapid Flu (83906 x 2) Influenza A Ag negative (Normal) [...] redmond M.D.November 05, 2011 at 3:25:08 PM [id number] Signed GP/GP If you are the referring physician and would like to consult with theradiologist who provided this interpretation, please contact Yasmany Pond at [phone]. If this radiologist is unavailable, youwill be directed to another radiologist to assist. If you are a patient with a question regarding this report, ple asecontactyour referring physician directly. Professional Interpretation Provided By: [employer], Phone , These documents contain legally protected [...] destructionofthese documents. Dictated on 11/05/11 0939 by Jose Hebert MDritay on 11/05/11 1551 by ITS IMPORTSign by [...] redmond M.D.November 05, 2011 at 3:25:08 PM [id number] Signed GP/GP If you are the referring physician and would like to consult with theradiologist who provided this interpretation, please contact Yasmany Pond at [phone]. If this radiologist is unavailable, youwill be directed to another radiologist to assist. If you are a patient with a question regarding this report, ple asecontactyour referring physician directly. Professional Interpretation Provided By: [employer], Phone , These documents contain legally protected [...] ITS IMPORTSign by Misael Hebert MD on 11/05/111551 Sign by: Misael Hebert MD 72-Nql-923381:20 METABOLIC PANEL, Comments: PATIENT WAS FASTINGPERFORMED BY: [facility]Select [facility]6370 [facility] [id number] Information: [id number],2ND ORDER NO DRAW F EE COMPREHENSIVE (64449) ALT (SGPT) 31 [iU]/L (Normal) Range: 0-40 [...] Creatinine Clearance Comments: PATIENT WAS FASTINGPERFORMED BY: LabCoVirtua BerlinTdmuki9707 [facility] [id number] Information: 10/30@6AM 10/31@730AM Creatinine Clearance 58 mL/min (Abnormal) Range: 88-128 Comments: The above range is based on 1.73 square meter average body surfacearea. Creatinine, Ur 24hr 949.7 {mg/24_hr} (Normal) Range: 800.0-1800.0 Creatinine, Urine 48.7 mg/dL (Normal) Range: 15.0-278.0 eGFR If Africn Am 55 mL/min/1.73 (Abnormal) eGFR If NonAfricn Am 48 mL/min/1.73 (Abnormal) Creatinine, Serum 1.14 mg/dL (Abnormal) Range: 0.57-1.00 48-Lzd-39212:49 Protein Total, Qn, 24-Hr Comments: PATIENT WAS FASTINGPERFORMED BY: [facility] Kidsfk9787 [facility] [id number] Urine Prot,24hr calculated 1023.8 {mg/24_hr} (Abnormal) Range: 30.0-150.0 Protein,Total,Urine 52.5 mg/dL (Abnormal) Range: 0.0-15.0 :04 HgA1C , Office (31747) HgA1C , Office 6.1 % (Normal) Range: 4.6 - 7.1 62-Fct-58069:58 CRE Comments: appt 09/21/11 CREAT 1.0 mg/dL [...] regarding this repor t, please call our 24H3foedkee line @ Dictated on 07/27/11 1040 by GAYE PEREZ MD RTranscribed on 07/28/11 1225 by ITS IMPORTSign by GAYE PEREZ MD on 07/28/11 1225 Sign by: GAYE PEREZ MD 77-Dpj-78144:54 Vitamin D Hydroxy (80258) Comments: PATIENT WAS FASTINGPERFORMED BY: [facility]6370 [facility] [id number] Vitamin D, 25-Hydroxy 48.8 ng/mL (Normal) Range: 30.0-100.0 Comments: Vitamin D deficiency has been defined by the [place] of[place]icine and an Endocrine Society practice guideline as alevel of serum 25-OH vitamin D less than 20 ng/mL (1,2).The Endocrine Society went on to further define vitamin Dinsufficiency as a level between 21 and 29 ng/mL (2).1. IOM ([place] of Medicine). 2010. Dietary reference intakes for calcium and D. [place]: The National Academies Press.2. Mira MF, [place], Tommy SWAIN, et al. Evaluation, treatment, and prevention of vitamin D deficiency: an Endocrine Society clinical practice guideline. JCEM. 2010; 96(7):1911-30. :54 LIPID PANEL (89714) Comments: PATIENT WAS FASTINGPERFORMED BY: [employer]6370 [facility] [id number] LDL/HDL Ratio 1.0 {ratio_units} (Normal) Range: 0.0-3.2 [...] MANUAL DIFF Comments: PATIENT WAS FASTINGPERFORMED BY: LabAccellion6370 [facility] [id number] Information: ADD [id number] AND DRAW FEE 99 3699 (78745) Immature Grans (Abs) 0.0 {x10E3/uL} (Normal) Range: [...] 3.77-5.28 WBC 4.3 {x10E3/uL} (Normal) Range: 4.0-10.5 16-Zlg-68683:54 METABOLIC PANEL, COMPREHENSIVE Comments: PATIENT WAS FASTINGPERFORMED BY: [facility]6370 [facility] [id number] (94285) ALT (SGPT) 48 [iU]/L (Abnormal) Range: 0-40 [...] (Abnormal) Range: 65-99 :18 HgA1C , Office (77677) HgA1C , Office 6.1 % (Normal) Range: 4.6 - 7.1 :18 Blood Glucose , Office (75435) Blood Glucose , Office 103 (Normal) 95-Tif-09518:00 ABDOMEN WITH AND W/O CONTRAST Radiology Report [...] radiologist regarding this report, please call our 67B3ctfvpxl line @ Dictated on 03/18/11 1715 by Jennie Pugh MDieTranscribed on 03/22/11 1401 by ITS IMPORTSign by Jeanette Hill MD on 03/22/11 1402 Sign by: Jeanette Pugh MD 50-Ygz-983003:29 SERUM CRE & GFR CREAT,SERUM 1.1 mg/dL (Abnormal) Range: 0.6-1.0 81-Mnl-14644:00 BRAIN W/WO CONTRAST Radiology Report See Note [...] seen in the right frontal white matter supervisor orchard ior to themasswithout interval change. The cortical [...] on 03/02/11 1330 by Mario MANN,DonnaTranscribed on 03/02/111728 by ITS IMPORTSign by Donna Martin MD on 03/02/111729 Sign by: Donna Martin MD 50-Hos-02989:00 UPPER EXT. JOINT ONLY(ROUTINE) Radiology Report See [...] on 03/04/11 103 Sign by: Ankur Duncan 45-Hvk-655665:08 SHOULDER,MIN 2 VIEWS Radiology Report See Note [...] Dictate d on 02/17/11 1107 by Keaton MANN,NadieTranscribed on 02/17/11 1205 by ITS IMPORTSign by [...] on 01/29/111715 Sign by: Aakash Barbosa MD 00-Ixj-60194:44 ABDOMEN/PELVIS WITH CONTRAST Radiology Report See Note [...] 02/01/11 1021 Sign by: ALEJANDRO DRUMMOND DO 03-Gfm-616381:57 SINUS/FACIAL BONE Radiology Report See Note (Normal) [...] suggested. Dictated on 01/19/11 1334 by Singh MANN,Jodyranscribed on 01/19/11 1447 by ITS IMPORTSign by Misael Hebert MD on 01/19/11 1448 Sign by: Misael Hebert MD 45-Vay-18924:00 BRAIN W/WO CONTRAST Radiology Report See Note [...] addition, there is a small region of uvnriknobR6uewnlqequx along the anterior margin of the mass, [...] on 01/19/111650 Sign by: GAYE PEREZ MD 54-Kal-76621:00 BRAIN/HEAD W/WO CONTRAST Radiology Report See Note [...] 01/19/11 1447 Sign by: Misael Hebert MD 80-Mbm-768445:08 [facility] DIGITAL & CAD Radiology Report See Note [...] suspiciousa bnormality. Dictated on 01/18/11 1317 by Jasbir Hebert MDrieleTranscribed on 01/19/11 0848 by ITS IMPORTSign by Misael Hebert MD on 01/19/11 0849 Sign by: Misael Hebert MD 09-Jun-20119:20 MICROALBUMIN: CREATININE RATIO Comments: PATIENT NOT FASTINGPERFORMED BY: [facility] Wjeysu2405 [place] [facility] [id number] (41457) AND (83984) Microalb/Creat Ratio 1028.4 {mg/g_creat} (Abnormal) Range: 0.0-30.0 Microalbumin, Urine 1341.0 ug/mL (Abnormal) Range: 0.0-17.0 Creatinine, Urine 130.4 mg/dL (Normal) Range: 15.0-278.0 09-Jun-20119:20 CBC WITH MANUAL DIFF (37517) Comments: PATIENT NOT FASTINGPERFORMED BY: Chamson GroupVirtua BerlinPzazkm9695 [facility] [id number] Immature Grans (Abs) 0.0 {x10E3/uL} (Normal) Range: [...] {x10E3/uL} (Normal) Range: 4.0-10.5 :20 LIPID PANEL (84516) Comments: PATIENT NOT FASTINGPERFORMED BY: [employer] [facility] [id number] LDL/HDL Ratio 0.9 {ratio_units} (Normal) Range: 0.0-3.2 [...] PANEL, COMPREHENSIVE Comments: PATIENT NOT FASTINGPERFORMED BY: Chamson GroupVirtua BerlinLwenvd2936 [facility] [id number] (43003) ALT (SGPT) 28 [iU]/L (Normal) Range: 0-40 [...] (Abnormal) Range: 65-99 :39 HgA1C , Office (60102) HgA1C , Office 6.5 % (Normal) Range: 4.6 - 7.1 :39 Blood Glucose , Office (84508) Blood Glucose , Office 128 (Normal) 0-Dhd-707968:19 CBC With Differential/Platelet Comments: PATIENT WAS FASTINGPERFORMED BY: [facility] Gyunua0144 [facility] [id number] Immature Grans (Abs) 0.0 {x10E3/uL} (Normal) Range: [...] 3.80-5.10 WBC 5.6 {x10E3/uL} (Normal) Range: 4.0-10.5 1-Wko-634977:19 Comp. Metabolic Panel (14) Comments: PATIENT WAS FASTINGPERFORMED BY: [facility] Cmqaoc4517 [facility] [id number]; appt 01/11/11 ALT (SGPT) 18 [iU]/L (Normal) [...] Glucose, Serum 113 mg/dL (Abnormal) Range: 65-99 0-Hgx-516203:19 Lipid Panel With LDL/HDL Comments: PATIENT WAS FASTINGPERFORMED BY: LabCoVirtua BerlinKcxzve1399 [facility] [id number] Ratio LDL/HDL Ratio 1.0 {ratio_units} Range: 0.0-3.2 [...] 0.800 {uIU/mL} Comments: PATIENT WAS FASTINGPERFORMED BY: [facility] [facility] Lyfylt4230 [facility] [id number] 2:19 (Normal) Range: 0.450-4.500 Vitamin D, 25-Hydroxy 44.0 ng/mL (Normal) Comments: PATIENT WAS FASTINGPERFORMED BY: [facility]6370 [facility] [id number] 2:19 Range: 32.0-100.0 Comments: Effective February 22, 2011 Vitamin D, 25-Hydroxy reference intervals will be changing to 30-100. .Recent studies consider the lower li sandra of 32.0 ng/mL to be athreshold for optimal health.Otf HAYES. J Nutr. 2004;135(2):317-22. :54 HgA1C , Office (80176) HgA1C , Office 6.6 % (Normal) Range: 4.6 - 7.1 :54 Blood Glucose , Office (22459) Blood Glucose , Office 134 (Normal) :40 Creatinine Clearance Comments: PERFORMED BY: Chamson GroupVirtua BerlinEcwebo4224 [facility] [id number] Information: 10/07@7AM 10/08@3AM Creatinine Clearance 56 mL/min [...] Protein Total, Qn, 24-Hr Comments: PERFORMED BY: [employer] Vsyoik7111 [facility] [id number] Urine Prot,24hr calculated 610.5 {mg/24_hr} (Abnormal) Range: 30.0-150.0 Protein,Total,Urine 40.7 mg/dL (Abnormal) Range: 0.0-15.0 :46 Vitamin D Hydroxy (59081) Comments: PATIENT WAS FASTINGPERFORMED BY: [employer] Vapeey0502 [facility] [id number] Vitamin D, 25-Hydroxy 36.5 ng/mL (Normal) Range: 32.0-100.0 Comments: Recent studies consider the lower limit of 32.0 ng/mL to be athreshold for optimal health.Otf HAYES. J Nutr. 2004;135(2):317-22. :46 METABOLIC PANEL, COMPREHENSIVE Comments: PATIENT WAS FASTINGPERFORMED BY: [employer] Tbgvjl8152 [facility] [id number] (35816) ALT (SGPT) 34 [iU]/L (Normal) Range: 0-40 [...] mg/dL (Abnormal) Range: 65-99 :46 LIPID PANEL (46104) Comments: PATIENT WAS FASTINGPERFORMED BY: [facility]UNC [facility] [id number] LDL Cholesterol Calc 85 mg/dL (Normal) Range: [...] MANUAL DIFF Comments: PATIENT WAS FASTINGPERFORMED BY: [employer]6370 [facility]ALSUNC [facility] [id number] Information: [id number]; appt 10/12/10 (08078) Immature Grans (Abs) 0.0 {x10E3/uL} (Normal) Range: [...] (Normal) Range: 4.0-10.5 :07 HgA1C , Office (04636) HgA1C , Office 6.6 % (Normal) Range: 4.6 - 7.1 :07 Blood Glucose , Office (93438) Blood Glucose , Office 114 (Normal) 42-Imq-299263:00 Creatinine Clearance Comments: PERFORMED BY: [facility] Arwiqc9253 [facility] [id number] Information: 12/31@8AM 01/01@4AM Creatinine Clearance 48 mL/min [...] Creatinine, Serum 1.20 mg/dL (Abnormal) Range: 0.57-1.00 64-Bep-072530:00 Protein Total, Qn, 24-Hr Comments: PERFORMED BY: [facility]6370 [facility] [id number] Urine Prot,24hr calculated 1070.6 {mg/24_hr} (Abnormal) Range: 30.0-150.0 Protein,Total,Urine 79.3 mg/dL (Abnormal) Range: 0.0-15.0 31-Ydc-695131:48 BILAT SCRN DIGITAL & CAD Radiology Report See Note (Normal) Comments: Exam Number: [id number] MAMMOGRAPHY - BILATERAL SCREENING INDICATION:Routine annual screening [...] of attaching a ResultCode to this exam.ADDENDUM: [id number] HPBI/MDS Reported By: MISAEL HEBERT 51-Ucu-434048:48 DEXA BONE DENSITY STUDY (HP) Radiology Report See Note (Normal) Comments: Exam Number: [id number] CLINICAL:This is a 69-year-old female patient with postmenopausal screening. EXAMINATION:DUAL ENERGY X-RAY ABSORPTIOMETRY / DEXA. TECHNIQUE:Bone Density Measurements (BMD) of lumb ar spine and bilateral hipswere obtained using a Stamped scanner.. COMPARISON:None. FINDINGS: Lumbar Spine (L1-L4): g/cm2 [...] Osteoporosis Foundation http://www.nof.org Reported By: MISAEL HEBERT 24-Vlp-275393:29 HgA1C , Office (60471) HgA1C , Office 6.5 % (Normal) Range: 4.6 - 7.1 19-Gbb-820690:29 Blood Glucose , Office (09694) Blood Glucose , Office 109 (Normal) :05 CBC With Differential/Platelet Comments: PATIENT WAS FASTINGPERFORMED BY: EVE Chamson GroupVirtua BerlinCjzqep3468 [facility] [id number] Immature Grans (Abs) 0.0 {x10E3/uL} (Normal) Range: [...] Panel (14) Comments: PATIENT WAS FASTINGPERFORMED BY: LabCoVirtua BerlinFlwnzf6553 [facility] [id number] ALT (SGPT) 20 [iU]/L (Normal) Range: 0-40 [...] Glucose, Serum 123 mg/dL (Abnormal) Range: 65-99 45-Tpd-16568:05 Lipid Panel With LDL/HDL Comments: PATIENT WAS FASTINGPERFORMED BY: [facility] Yphsof2785 [facility] [id number] Ratio HDL Cholesterol 54 mg/dL (Normal) Comments: [...] ng/mL (Normal) Comments: PATIENT WAS FASTINGPERFORMED BY: [employer] [facility] [id number] Range: 32.0-100.0 Comments: Recent studies consider the lower limit of 32.0 ng/mL to be athreshold for optimal health.Otf HAYES. J Nutr. 2004;135(2):317-22. 94-Zok-41314:41 SPLEEN (HP) Radiology Report See Note (Normal) Comments: Exam Number: [id number] ULTRASOUND OF THE SPLEEN A goal directed [...] Protein, 0.5 mg/L (Normal) Comments: PERFORMED BY: Upptalk70 [place] [facility] [id number] 10:54 Quant Range: 0.0-4.9 17-Jun-2009 Hemoglobin A1c 6.3 % (Abnormal) Comments: PERFORMED BY: Upptalk70 [place] [facility] HospitalIn[facility] MarketUNC [facility] [id number] 10:54 Range: 4.8-5.6 Comments: Increased risk for diabetes: 5.7 - 6.4Diabetes: >6.4Glycemic control for adults with diabetes: <7.0.Please note reference interval change 17-Jun-2009 Sedimentation 4 mm/h (Normal) Comments: PERFORMED BY: SnapUpox RoadDublin [place] [id number] 10:54 Rate-Westergren Range: 0-30 17-Jun-2009 Vitamin B12 1372 pg/mL Comments: PERFORMED BY: [facility]6370 [facility] [id number] 10:54 (Abnormal) Range: 211-911 Comments: Effective July 14, 2009, Vitamin B12 will bechanging to the [place] ECLIA methodology. Thereference interval will be changing to:211 - 946 pg/mL 17-Jun-2009 Vitamin D, 25-Hydroxy 37.7 ng/mL Comments: PERFORMED BY: [facility]6370 [facility] [id number] 10:54 (Normal) Range: 32.0-100.0 Comments: Recent studies consider the lower limit of 32.0 ng/mL to be athreshold for optimal health.Otf HAYES. J Nutr. 2004;135(2):317-22. 57-Bpu-249226:34 Vitamin D Hydroxy Comments: PATIENT NOT FASTINGPERFORMED BY: [facility]6370 [facility] [id number] Information: M32169,2ND ORDER NO DRAW F EE (68735) Vitamin D, 25-Hydroxy 48.5 ng/mL (Normal) Range: 30.0-100.0 Comments: Vitamin D deficiency has been defined by the [place] ofMedicine and an Endocrine Society practice guideline as alevel of serum 25-OH vitamin D less than 20 ng/mL (1,2).The Endocrine Society went on to further define vitamin Dinsufficiency as a level between 21 and 29 ng/mL (2).1. IOM ([place] of Medicine). 2010. Dietary reference intakes for calcium and D. [place]: The National Academies Press.2. Mira MF, Ros[place], Tommy SWAIN, et al. Evaluation, treatment, and prevention of vitamin D deficiency: an Endocrine Society clinical practice guideline. JCEM. 2010; 96(7):1911-30. 04-Uuo-70237:50 HgA1C , Office (05122) HgA1C , Office 6.7 % (Normal) Range: 4.6 - 7.1 :50 Blood Glucose , Office (61753) Blood Glucose , Office 117 (Normal) 39-Ljc-232776:12 CBC With Differential/Platelet Comments: PERFORMED BY: EVE [place] [id number] Information: 06/10@6AM3/10@330AM Hematology Comments: Note: (Normal) Comments: [...] 3.80-5.10 WBC 3.6 {x10E3/uL} (Abnormal) Range: 4.0-10.5 11-Ubv-398398:12 Comp. Metabolic Panel (14) Comments: PERFORMED BY: EVE Stollox RoadDublin [place] [id number] Alkaline Phosphatase, S 68 [iU]/L (Normal) Range: [...] Glucose, Serum 124 mg/dL (Abnormal) Range: 65-99 02-Qzz-134202:12 Creatinine Clearance Comments: PERFORMED BY: LabCoVirtua BerlinRezrpd5134 [facility] [id number] Creatinine Clearance 49 mL/min (Abnormal) Range: 88-128 Comments: The above range is based on 1.73 square meter average body surfacearea. Creatinine, Ur 24hr 800.0 {mg/24_hr} (Normal) Range: 800.0-1800.0 Creatinine, Urine 40.0 mg/dL (Normal) Range: 15.0-278.0 90-Evz-357158:12 Lipid Panel With LDL/HDL Comments: PERFORMED BY: [email or web address] [id number] Ratio HDL Cholesterol 61 mg/dL (Normal) Comments: According to ATP-III Guidelines, HDL-C >59 mg/dL is considered anegative risk factor for CHD. LDL Cholesterol Calc 74 mg/dL (Normal) Range: 0-99 LDL/HDL Ratio 1.2 {ratio_units} (Normal) Range: 0.0-3.2 VLDL Cholesterol Cesar 17 mg/dL (Normal) Range: 5-40 Cholesterol, Total 152 mg/dL (Normal) Range: 100-199 Triglycerides 87 mg/dL (Normal) Range: 0-149 06-Qia-509714:12 Protein Total, Qn, 24-Hr Comments: PERFORMED BY: [email or web address] [id number] Urine Prot,24hr calculated 1172.0 {mg/24_hr} Range: 30.0-150.0 (Abnormal) Protein,Total,Urine 58.6 mg/dL (Abnormal) Range: 0.0-15.0 TSH 1.280 {uIU/mL} Comments: PERFORMED BY: [email or web address] [id number] 1:12 (Normal) Range: 0.450-4.500 :58 HgA1C , Office (67117) HgA1C , Office 6.0 % (Normal) Range: 4.6 - 7.1 :58 Blood Glucose , Office (16665) Blood Glucose , Office 113 (Normal) 3-Awo-769997:03 CBC With Differential/Platelet Comments: PATIENT WAS FASTINGPERFORMED BY: EVE [email or web address] [id number] Baso (Absolute) 0.0 {x10E3/uL} (Normal) Range: 0.0-0.2 [...] 11.7-15.0 WBC 3.2 {x10E3/uL} (Abnormal) Range: 4.0-10.5 9-Igq-897704:03 Comp. Metabolic Panel (14) Comments: PATIENT WAS FASTINGPERFORMED BY: [facility] [id number] A/G Ratio 2.0 (Normal) Range: 1.1-2.5 Albumin, [...] With LDL/HDL Comments: PATIENT WAS FASTINGPERFORMED BY: [employer] [place] [id number] Ratio Cholesterol, Total 167 mg/dL (Normal) Range: [...] ng/mL (Normal) Comments: PATIENT WAS FASTINGPERFORMED BY: [employer] [place] [id number] :03 Range: 32.0-100.0 Comments: Recent studies consider the lower limit of 32.0 ng/mL to be athreshold for optimal health.Otf HAYES. J Nutr. 2004;135(2):317-22. 34-Msk-619492:32 Urinalysis, Office (70629) UA - BILIRUBIN Negative (Normal) UA - BLOOD Hemolyzed Trace (Normal) UA - GLUCOSE Negative (Normal) UA - KETONES Negative mg/dL (Normal) UA - LEUKOCYTE ESTERASE Negative (Normal) UA - NITRITE Negative (Normal) UA - PH 6.5 (Normal) UA - PROTEIN 300 mg/dL (Normal) UA - SPECIFIC GRAVITY 1.020 (Normal) URINE UROBILINGN JATINDER TIMED 2 mg/dL (Normal) 6-Nkt-537555:19 URINE SETH CULTURE-JATINDER COL Comments: PATIENT NOT FASTINGClinical Information: SRC:UR ADD [id number] PERFORMED BY: LabCoVirtua BerlinJombki2281 Will[address]by RoadDublin [place] [id number] COUNT (60331) Result 1 ECV (Normal) Comments: Escherichia coli, [...] report (Normal) Culture,Comprehensiv e 09-Jan-20098:17 Urinalysis, Office (56838) UA - BILIRUBIN Negative (Normal) UA - BLOOD Hemolyzed Large (Normal) UA - GLUCOSE Negative (Normal) UA - KETONES Negative mg/dL (Normal) UA - LEUKOCYTE ESTERASE Moderate (Normal) UA - NITRITE Negative (Normal) UA - PH 7.0 (Normal) UA - PROTEIN 300 mg/dL (Normal) UA - SPECIFIC GRAVITY 1.020 (Normal) URINE UROBILINGN JATINDER TIMED 2 mg/dL (Normal) :05 Comp. Metabolic Panel (14) Comments: PATIENT WAS FASTINGPERFORMED BY: [facility] [id number] A/G Ratio 1.7 (Normal) Range: 1.1-2.5 Albumin, [...] Sodium, Serum 142 mmol/L (Normal) Range: 135-145 6-Oxm-473557:05 Hepatic Function Panel (7) Comments: PATIENT WAS FASTINGPERFORMED BY: [email or web address] [facility] [id number] Bilirubin, Direct 0.12 mg/dL (Normal) Range: 0.00-0.40 :05 Lipid Panel With LDL/HDL Comments: PATIENT WAS FASTINGPERFORMED BY: [facility]6370 [facility] [id number] Ratio Cholesterol, Total 170 mg/dL (Normal) Range: [...] mg/dL (Normal) Comments: PATIENT WAS FASTINGPERFORMED BY: [facility]6370 [facility] [id number] :05 Range: 2.5-4.5 PTH, Intact 19 pg/mL (Normal) Comments: PATIENT WAS FASTINGPERFORMED BY: [facility]6370 [facility] [id number] :05 Range: 15-65 Vitamin D, 25-Hydroxy 38.9 ng/mL (Normal) Comments: PATIENT WAS FASTINGPERFORMED BY: [facility]6370 [facility] [id number] :05 Range: 32.0-100.0 Comments: Recent studies consider the lower limit of 32.0 ng/mL to be athreshold for optimal health.Otf BW. J Nutr. 2004;135(2):317-22. :40 HgA1C , Office (26424) HgA1C , Office 6.0 % (Normal) Range: 4.6 - 7.1 :40 Blood Glucose , Office (70596) Blood Glucose , Office 109 (Normal) :42 CBC With Differential/Platelet Comments: PATIENT WAS FASTINGPERFORMED BY: [facility] SurgeryCoVirtua BerlinBazloa3390 [facility] [id number] Baso (Absolute) 0.0 {x10E3/uL} (Normal) Range: 0.0-0.2 [...] 11.7-15.0 WBC 4.2 {x10E3/uL} (Normal) Range: 4.0-10.5 17-Irq-472180:42 Comp. Metabolic Panel (14) Comments: PATIENT WAS FASTINGPERFORMED BY: [facility] [id number] A/G Ratio 1.6 (Normal) Range: 1.1-2.5 Albumin, [...] Sodium, Serum 140 mmol/L (Normal) Range: 135-145 7-Eds-903056:09 FECAL OCCULT HGB ASSAY, QUAL, 1-3 SIMULTANEOUS DETERMINATIONS (60554) FECAL OCCULT HGB ASSAY, QUAL, 1-3 SIMULTANEOU neg (Normal) 05-Sep-20089:42 Microscopic Examination Comments: PATIENT WAS FASTINGPERFORMED BY: [facility] [id number] Bacteria None seen (Normal) Cast Type Hyaline casts (Normal) Casts Present {/lpf} (Abnormal) Epithelial Cells (non renal) 0-10 {/hpf} (Normal) Range: 0 - 10 Mucus Threads Present (Normal) RBC 0-3 {/hpf} (Normal) Range: 0 - 3 WBC 0-5 {/hpf} (Normal) Range: 0 - 5 :42 URINALYSIS W/O MICRO (72488) Comments: PATIENT WAS FASTINGPERFORMED BY: [employer] [facility] [id number] Appearance Clear (Normal) Bilirubin Negative (Normal) Glucose Negative (Normal) Ketones Negative (Normal) Microscopic Examination See below: (Normal) Nitrite, Urine Negative (Normal) Occult Blood Negative (Normal) pH 5.0 (Normal) Range: 5.0-7.5 Protein 1+ (Abnormal) Specific Sharon 1.013 (Normal) Range: 1.005-1.030 Urine-Color Yellow (Normal) Urobilinogen,Semi-Qn 0.2 mg/dL (Normal) Range: 0.0-1.9 WBC Esterase 1+ (Abnormal) :42 MICROALBUMIN: CREATININE RATIO Comments: PATIENT WAS FASTINGPERFORMED BY: [facility] Qttpdp1794 [facility] [id number] (98346) AND (88645) Creatinine, Urine 76.1 mg/dL (Normal) Range: 15.0-278.0 Microalb/Creat Ratio 292.1 {ug/mg_creat} (Abnormal) Range: 0.0-30.0 Microalbumin, Urine 222.3 ug/mL (Abnormal) Range: 0.0-17.0 :42 CBC WITH MANUAL DIFF (05844) Comments: PATIENT WAS FASTINGClinical Information: ADD DRAW FEE [id number] ADD J 40989 PERFORMED BY: ParentsWareVirtua BerlinXdtoex7783 [facility] [id number] Baso (Absolute) 0.0 {x10E3/uL} (Normal) Range: 0.0-0.2 [...] PANEL, COMPREHENSIVE Comments: PATIENT WAS FASTINGPERFORMED BY: LabCoVirtua BerlinSfhqrc9503 [facility] [id number] (49689) A/G Ratio 1.8 (Normal) Range: 1.1-2.5 Albumin, [...] Sodium, Serum 141 mmol/L (Normal) Range: 135-145 7-Wyl-531500:23 HgA1C , Office (33827) HgA1C , Office 6.0 % (Normal) Range: 4.6 - 7.1 4-Tca-981273:23 Blood Glucose , Office (96775) Blood Glucose , Office 103 (Normal) 22-Ndw-976134:38 CBC WITH MANUAL DIFF (65054) Comments: PATIENT WAS FASTINGClinical Information: ADD DRAW FEE 976345 ADD J 07900 PERFORMED BY: LabCoVirtua BerlinUdxvbi4633 [facility] [id number] Baso (Absolute) 0.0 {x10E3/uL} (Normal) Range: 0.0-0.2 [...] 11.7-15.0 WBC 4.0 {x10E3/uL} (Normal) Range: 4.0-10.5 90-Gla-924574:38 METABOLIC PANEL, COMPREHENSIVE Comments: PATIENT WAS FASTINGPERFORMED BY: [facility]6370 [facility] [id number] (59825) A/G Ratio 1.8 (Normal) Range: 1.1-2.5 Albumin, [...] Sodium, Serum 142 mmol/L (Normal) Range: 135-145 30-Osg-670927:38 HEPATIC FUNCTION PANEL Comments: PATIENT WAS FASTINGPERFORMED BY: EVE [employer] [facility] [id number] (78253) Bilirubin, Direct 0.08 mg/dL (Normal) Range: 0.00-0.40 92-Sgz-416048:38 LIPID PANEL (89654) Comments: PATIENT WAS FASTINGPERFORMED BY: [employer] [facility] [id number] Cholesterol, Total 200 mg/dL (Abnormal) Range: 100-199 [...] Cholesterol Cesar 18 mg/dL (Normal) Range: 5-40 7-Vvi-206559:36 HgA1C , Office (63924) HgA1C , Office 6.1 % (Normal) Range: 4.6 - 7.1 9-Uav-791990:36 Blood Glucose , Office (99376) Blood Glucose , Office 98 (Normal) 34-Pya-230841:33 CBC With Differential/Platelet Comments: PATIENT WAS FASTINGClinical Information: SRC:UR PERFORMED BY: [employer] [facility] [id number] Baso (Absolute) 0.0 {x10E3/uL} (Normal) Range: 0.0-0.2 [...] 11.7-15.0 WBC 4.8 {x10E3/uL} (Normal) Range: 4.0-10.5 62-Fyq-637406:33 Comp. Metabolic Panel (14) Comments: PATIENT WAS FASTINGPERFORMED BY: LabCoVirtua BerlinYaozca1035 [facility] [id number] A/G Ratio 1.6 (Normal) Range: 1.1-2.5 Albumin, [...] Serum 92 mg/dL (Normal) Range: 65-99 If -[place] Citizen 57 mL/min/1.73 Comments: Note: Persistent reduction for [...] Sodium, Serum 142 mmol/L (Normal) Range: 135-145 73-Bxc-941941:33 Lipid Panel With LDL/HDL Comments: PATIENT WAS FASTINGPERFORMED BY: [facility] Fcrlpn1815 [facility] [id number] Ratio Cholesterol, Total 174 mg/dL (Normal) Range: 100-199 HDL Cholesterol 67 mg/dL (Normal) Comments: According to ATP-III Guidelines, HDL-C >59 mg/dL is considered anegative risk factor for CHD. LDL Cholesterol Calc 85 mg/dL (Normal) Range: 0-99 LDL/HDL Ratio 1.3 {ratio_units} (Normal) Range: 0.0-3.2 Triglycerides 110 mg/dL (Normal) Range: 0-149 VLDL Cholesterol Cesar 22 mg/dL (Normal) Range: 5-40 22-Yfo-652051:33 Urine Culture,Comprehensive Comments: PATIENT WAS FASTINGPERFORMED BY: LabCoVirtua BerlinHhwtni9989 [facility] [id number] Antimicrobial MIHEAD (Normal) Comments: S = Susceptible; [...] Enterococcus. (Normal) Urine Final report (Normal) Culture,Comprehensive 4-Ruj-348114:10 HgA1C , Office (44125) HgA1C , Office 5.9 % (Normal) Range: [...] mL (Normal) URINE PROTEIN 20.0 mg/dL (Abnormal) 22-Cpc-722260:17 Urine Culture,Comprehensive Comments: Clinical Information: SRC:UR PERFORMED BY: [employer] Nkqzbs3476 [facility] [id number] Result 1 CNSNSS (Normal) Comments: Coagulase negative Staphylococcus species, not Staphylococcussaprophyticus.600 Colonies/mLSusceptibility or resistance of staphylococci to oxacillin predictssusceptibility or resistance to (a) other be dj-ndpmjzjqm-sinvgqqufwowleuwr such as cloxacillin and dicloxacillin, (b) combinationsof a penicillin and a beta-lactamase inhibitor, and(c) anti- staphylococcal cephalosporins. Routine testing of otherp enicillins, beta-lactam/beta-lactamase inhibitor combinations,cephems, and carbapenems is not advised by the CLSI Standards(G681-H27, 2005). S = Susceptible; I = Intermediate; R = Resistant * P = Positive; N = Negative MICS are expressed in micrograms per mL Antibiotic RSLT#1 RSLT#2 RSLT#3 RSLT#4Ciprofloxacin RGentami kristian SLevofloxacin RNitrofurantoin SOxacillin SPenicillin RRifampin STrimethoprim/Sulfa SVancomycin S Urine Final report Culture,Comprehensi (Normal) ve 3-Lmk-518791:53 Metabolic Panel, Basic (08515) Comments: PATIENT NOT FASTINGClinical Information: ADD DRAW FEE 778300 ADD J 74266 PERFORMED BY: [facility] Ffvfgq6515 [facility] [id number] BUN 39 mg/dL (Abnormal) Range: 5-26 BUN/Creatinine Ratio 33 (Abnormal) Range: 8-27 Calcium, Serum 9.8 mg/dL (Normal) Range: 8.5-10.6 Carbon Dioxide, Total 22 mmol/L (Normal) Range: 20-32 Chloride, Serum 103 mmol/L (Normal) Range: 97-108 Creatinine, Serum 1.20 mg/dL (Abnormal) Range: 0.57-1.00 Glom Filt Rate, Est 45 mL/min/1.73 Range: 60-128 (Abnormal) Glucose, Serum 101 mg/dL (Abnormal) Range: 65-99 If -[place] Citizen 55 mL/min/1.73 Range: 60-128 (Abnormal) Comments: Note: Persistent reduction for 3 months or more in an eGFR<60 mL/min/1.73 m2 defines CKD. Patients with eGFR values>/=60 mL/min/1.73 m2 may also have CKD if evidence of persistentproteinuria is present. Additional information may be found atwww.kdoqi.org. Potassium, Serum 5.1 mmol/L (Normal) Range: 3.5-5.2 Sodium, Serum 139 mmol/L (Normal) Range: 135-145 :09 HgA1C , Office (80898) HgA1C , Office 6.1 % (Normal) Range: 4.6 - 7.1 :09 Blood Glucose , Office (92421) Blood Glucose , Office 163 (Normal) :37 SPINE,LUMBAR (ROUTINE) Radiology Report See Note (Normal) Comments: Exam Number: [id number] MRI LUMBAR SPINE CLINICAL STATEMENTLow back pain [...] onboth sides. Reported By: MODESTA COPE M.D. 94-Nhd-421992:00 BILAT SCRN DIGITAL & CAD Radiology Report See Note (Normal) Comments: Exam Number: [id number] MAMMOGRAM, BILATERAL SCREENING DIGITAL AND CAD HISTORYRoutine screening. Full field digital images were obtained in mediolateral oblique andcraniocaudal projections. CAD images w ere reviewed. The current study is compared to the [facility]. A small metal marker is placed on [...] mammograms werealso examined with computer-aided detection software ([employer], [employer].). Reported By: DONNA OJEDA M.D. 14-Tav-073771:59 DEXA BONE DENSITY STUDY (HP) Radiology Report See Note (Normal) Comments: Exam Number: [id number] BONE DENSITOMETRY HISTORYPost menopausal. TECHNIQUE Bone densitometry [...] Report See Note (Normal) Comments: Exam Number: [id number] FIVE VIEW LUMBAR SPINE AP, lateral, both [...] Randm Ur Comments: PATIENT NOT FASTINGPERFORMED BY: [email or web address] [facility] [id number] Creatinine, Urine 46.8 mg/dL (Normal) Microalb/Creat Ratio 712.8 {ug/mg_creat} (Abnormal) Range: 0.0-30.0 Microalbum.,U,Random 333.6 ug/mL (Abnormal) Range: 0.0-17.0 :13 Creatinine Clearance Comments: PATIENT NOT FASTINGClinical Information: HT-5'4'' WT-184 PERFORMED BY: [employer] [place] [id number] Creatinine Clearance 40 mL/min (Abnormal) Range: 88-128 Comments: The above range is based on 1.73 square meter average body surfacearea. Creatinine, Serum 1.30 mg/dL (Normal) Range: 0.50-1.50 Creatinine, Ur 24hr 754.8 {mg/24_hr} Range: 800.0-1800.0 (Abnormal) Creatinine, Urine 44.4 mg/dL (Normal) Glom Filt Rate, Est 41 mL/min (Abnormal) Range: 60-128 If -[place] Citizen 50 mL/min (Abnormal) Range: 60-128 Comments: Note: Persistent reduction for 3 months or more in an eGFR<60 mL/min/1.73 m2 defines CKD. Patients with eGFR values>/=60 mL/min/1.73 m2 may also have CKD if evidence of persistentproteinuria is present. .Additional information may be found at www.[email or web address].org. 05-Sep-20079:13 Protein Total, Qn, 24-Hr Comments: PATIENT NOT FASTINGPERFORMED BY: LabCoVirtua BerlinYwpsmv8154 [facility] [id number] Urine Protein,Total,Urine 49.0 mg/dL (Abnormal) Range: 0.0-15.0 [...] T PROT 6.6 g/dL (Normal) Range: 6.4-8.2 09-Jvb-807317:00 D BILI 0.06 mg/dL (Normal) Range: 0.00-0.30 27-Ylu-733488:00 LIPID CHOL 175 mg/dL (Normal) Comments: <200 [...] mg/dL VLDL 12 mg/dL (Normal) Range: 5-40 10-Fgb-394606:00 TSH 0.84 {uIU/mL} (Normal) Range: 0.34-4.82 Plan [...] skin Planned Observations CBC with auto diff (92645)Indication: Diabetes mellitus type II, controlled On: 78-Lnp-573417:22 Request HGB A1C (92755)Indication: Diabetes mellitus type II, controlled On: 38-Shs-603967:21 Request METABOLIC PANEL, COMPREHENSIVE (89151)Indication: Chronic kidney disease, stage 3 On: 94-Req-528620:21 Request LIPID PANEL (37348)Indication: Other and unspecified hyperlipidemia On: 06-Jav-685671:21 Request Vitamin D Hydroxy (84624)Indication: Vitamin D deficiency On: 08-Gzz-348895:21 Request PARATHORMONE (33473)Indication: Chronic kidney disease, stage 3 On: 06-Mar-20188:59 Request Comments: fax to [phone] MICROALBUMIN: CREATININE RATIO (88751) AND (16203)Indication: Chronic kidney disease, stage 3 On: 06-Mar-20188:55 Request Comments: fax to [phone] RENAL FUNCTION PANEL (39843)Indication: Chronic kidney disease, stage 3 On: :54 Request Comments: fax to [phone] MAGNESIUM (05293)Indication: Chronic kidney disease, stage 3 On: :54 Request Comments: fax to [phone] Parathyroid Hormone-related Peptide (PTH-rP) (83124)Indication: Chronic kidney disease, stage 3 On: 06-Mar-20188:54 Request Comments: fax to [phone] CBC W/AUTO DIFF WBC (79940)Indication: Chronic kidney disease, stage 3 On: 61-Nsv-028145:25 Request Parathyroid Hormone-related Peptide (PTH-rP) (56564)Indication: Vitamin D deficiency On: 9-Rrj-540123:43 Request Comments: send results to Dr. Santana fax: [phone] VITAMIN D, 1, 25-DIHYDROXY (09168)Indication: Vitamin D deficiency On: 6-Eco-580974:42 Request Comments: send results to Dr. Santana fax: [phone] Clostridium difficile Toxin A+B, EIA (36388)Indication: Chronic diarrhea On: 5-Vbx-398863:36 Request Vitamin D Hydroxy (06895)Indication: Osteopenia On: 6-Kgv-832795:20 Request CBC W/AUTO DIFF WBC (37749)Indication: Hypertension, benign On: 9-Fpv-010812:16 Request CALCIFEDIOL (77827)Indication: Chronic kidney disease, stage 3 On: 03-Aug-20169:04 Request Renal function Panel (50392)Indication: Chronic kidney disease, stage 3 On: :04 Request Magnesium (99671)Indication: Chronic kidney disease, stage 3 On: :04 Request MICROALBUMIN: CREATININE RATIO (42761) AND (06693)Indication: Chronic kidney disease, stage 3 On: :04 Request Parathyroid Hormone-related Peptide (PTH-rP) (76236)Indication: Chronic kidney disease, stage 3 On: : Request T4, FREE (THYROXINE) (88959)Indication: Cold feeling On: :31 Request TSH (81618)Indication: Cold feeling On: : Request PARATHORMONE (61058)Indication: Chronic kidney disease, stage 3 On: :18 Request Comments: copy to Dr. Santana [phone] CALCIFIDIOL (93939) VIT D 25Indication: Chronic kidney disease, stage 3 On: :16 Request Comments: copy to Dr. Santana [phone] MAGNESIUM (95958)Indication: Chronic kidney disease, stage 3 On: :15 Request Comments: copy to Dr. Santana [phone] PROTEIN/CREAT RATIO, URINE (24316)Indication: Chronic kidney disease, stage 3 On: :15 Request Comments: copy to Dr. Santana [phone] LIPID PANEL (58443)Indication: Mixed hyperlipidemia On: :21 Request CBC with auto diff (82390)Indication: Diabetes mellitus type II, controlled On: 35-Xeq-969899:20 Request METABOLIC PANEL, COMPREHENSIVE (37226)Indication: Diabetes mellitus type II, controlled On: 87-Gwt-510529:20 Request HGB A1C (83119)Indication: Diabetes mellitus type II, controlled On: :10 Request Vitamin D Hydroxy (39004)Indication: Osteopenia On: :08 Request TSH (THYROID STIMULATING HORMONE) (57117)Indication: Depression On: :06 Request LIPID PANEL (47490)Indication: Other and unspecified hyperlipidemia On: :06 Request CBC with auto diff (43516)Indication: Diabetes mellitus type II, controlled On: 15-Vzj-587663:06 Request METABOLIC PANEL, COMPREHENSIVE (32189)Indication: Diabetes mellitus type II, controlled On: 67-Tcx-993714:06 Request CREATININE CLEARANCE (27098)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 On: 2-Jrj-343951:38 Request Total Protein,24 Hour Urine (43269)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 On: 6-Lku-885177:38 Request CBC W/AUTO DIFF WBC (16490)Indication: Diabetes mellitus type II, controlled On: 74-Ddd-018764:11 Request HgA1C , Office (12205)Indication: Diabetes mellitus type II, controlled On: 88-Yxv-059904:23 Request CULTURE, SPUTUM (88786)Indication: Cough On: 37-Ryh-974528:47 Request HEPATIC FUNCTION PANEL (29909)Indication: Elevated LFTs On: 23-Jdl-68842:24 Request CREATININE CLEARANCE (70272)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 On: 78-Nxv-42616:33 Request 24 hour urine for Protein (27548)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 On: :33 Request CBC WITH MANUAL DIFF (56847)Indication: Diabetes mellitus type II, controlled On: :29 Request METABOLIC PANEL, COMPREHENSIVE (71089)Indication: Diabetes mellitus type II, controlled On: 45-Ava-806363:29 Request LIPID PANEL (70662)Indication: Mixed hyperlipidemia On: :29 Request CREATININE CLEARANCE (96898)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 On: 6-Uxg-948149:45 Request 24 hour urine for Protein (80987)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 On: 8-Spo-274571:45 Request CREATININE CLEARANCE (50856)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 On: 57-Aul-545294:57 Request 24 hour urine for Protein (77883)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 On: 62-Uiw-696011:57 Request METABOLIC PANEL, COMPREHENSIVE (62175)Indication: Hypertension, benign On: :32 Request LIPID PANEL (41467)Indication: Mixed hyperlipidemia On: 97-Xob-76099:32 Request C-REACTIVE PROTEIN (28948)Indication: Fatigue On: :24 Request SED RATE ERYTHROCYTE (27437)Indication: Headache On: :24 Request VITAMIN B-12 (CYANOCOBALAMIN) (99237)Indication: Fatigue On: :24 Request LIPID PANEL (54560)Indication: Mixed hyperlipidemia On: :41 Request CBC WITH MANUAL DIFF (00841)Indication: Hypertension, benign On: :41 Request METABOLIC PANEL, COMPREHENSIVE (89109)Indication: Hypertension, benign On: :41 Request CREATININE CLEARANCE (21235)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 On: :34 Request 24 hour urine for Protein (17634)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 On: :34 Request LIPID PANEL (10995)Indication: Mixed hyperlipidemia On: :22 Request HEPATIC FUNCTION PANEL (86496)Indication: Mixed hyperlipidemia On: 6-Vdi-087968:22 Request Vitamin D Hydroxy (51069)Indication: Hypercalcemia On: 3-Kcb-771446:22 Request PHOSPHORUS (99773)Indication: Hypercalcemia On: 5-Hii-293017:22 Request PARATHORMONE (42214)Indication: Hypercalcemia On: 3-Twq-701689:22 Request METABOLIC PANEL, COMPREHENSIVE (70537)Indication: Hypercalcemia On: 8-Bri-457962:22 Request CBC WITH MANUAL DIFF (25958)Indication: fsgs On: :58 Request LIPID PANEL (00788)Indication: Mixed hyperlipidemia On: 7-Aey-259977:58 Request METABOLIC PANEL, COMPREHENSIVE (01452)Indication: Hypertension, benign On: 0-Cdd-000422:58 Request Blood Glucose , Office (35051)Indication: Diabetes mellitus type II, controlled On: 4-Uct-550466:10 Request TSH (25249)Indication: Diabetes mellitus type II, controlled On: 35-Zar-138573:51 Request METABOLIC PANEL, COMPREHENSIVE (10235)Indication: Diabetes mellitus type II, controlled On: 92-Lbl-248022:51 Request CBC WITH MANUAL DIFF (16332)Indication: Diabetes mellitus type II, controlled On: 56-Xby-455172:51 Request MICROALBUMIN: CREATININE RATIO (13464) AND (20210)Indication: Diabetes mellitus type II, controlled On: :51 Request HEPATIC FUNCTION PANEL (36501)Indication: Other and unspecified hyperlipidemia On: :51 Request LIPID PANEL (01932)Indication: Other and unspecified hyperlipidemia On: :51 Request HgA1C , Office (42708)Indication: Diabetes mellitus type II, controlled On: :37 Request Blood Glucose , Office (44967)Indication: Diabetes mellitus type II, controlled On: :37 Request Planned Procedures PNEUM VAC ADLT/IMUMNOSPR, SBC/INTRM On: 22-Mar-2018 Intent (71657)By: Fast DO, Chaparrita A Fast DO, Chaparrita A DRAIN/INJECT MAJOR JOINT OR BURSA On: 13-Mar-2018 Intent ()By: SHONDA Andrade Comments: 2 cc Marcaine lot# [id number] exp: 1 cc [place] lot# [id number] exp DRAIN/INJECT MAJOR JOINT OR BURSA On: 07-Feb-2018 Intent ()By: Keri Singh MD Comments: lot no [id number] exp date 2017-12-26 DRAIN/INJECT MAJOR JOINT OR BURSA On: 31-Jan-2018 Intent ()By: Keri Singh MD Comments: Lot#[id number]:[id number]:intra articular Site given:left knee Given By: Dr. Singh ABN signed DRAIN/INJECT MAJOR JOINT OR BURSA On: 24-Jan-2018 Intent ()By: Keri Singh MD Comments: Lot#[id number]: 1-98-43Cjres:intra artciular Site given:left knee Given By: Dr. Singh ABN signed Euflexxa Echo CompleteBy: Fast DO, Chaparrita A On: 16-Dec-2017 Intent Fast DO, Chaparrita A Flu Vaccine (Quadrivalent) [id number]: On: 16-Dec-2017 Intent Fast DO, Chaparrita A Fast DO, Chaparrita A Comments: Lot: [id number]: 10/01/18Site: L dltd, IMDose prefilled syringegiven by: Jamie reviewed and ABN signed Kenalog Injection, 10 mgm On: 03-Oct-2017 Intent (J3301)By: Keri Singh MD Comments: lot: [id number]: 11/20site/route: L knee Cartoid DopplerBy: Fast DO, Chaparrita A On: 12-Sep-2017 Intent Fast DO, Chaparrita A Comments: november DIGITAL TOMOSYNTHESIS OF On: 12-Sep-2017 Intent BREAST ([id number])By: Fast DO, Chaparrita A Comments: due november 02 Fast DO, Chaparrita A Kenalog Injection, 10 mgm On: 06-Jun-2017 Intent (J3301)By: Keri Singh MD Comments: bupivacacine 0.5% [id number] exp 09-20 kenalog 40 mg injected in. [id number] 07-21 MRI OF BRAIN WITH AND WITHOUT On: 06-Jun-2017 Intent CONTRAST ([id number])By: Fast DO, Chaparrita A Fast DO, Chaparrita A ELECTROCARDIOGRAM, COMPLETE (ECG) On: 06-Jun-2017 Intent ([id number])By: Fast DO, Chaparrita A Fast DO, Comments: ekg showed normal sinus rhythym, normal axis, no acute st/t wave changes Chaparrita A INFUSION, NORMAL SALINE SOLUTION , On: 10-May-2017 Intent 1000 CC (Special Coverage Comments: 2 liters total Instructions Apply. See MCM: 2048) ([id number])By: Fast DO, Chaparrita A Fast DO, Chaparrita A INFUSION, NORMAL SALINE SOLUTION , On: 10-May-2017 Intent 1000 CC (Special Coverage Comments: lot:[id number]:IV left anticub dose:1000ml given by:eliazar HUMPHREY signedER, [employer]ERSON[employer]NER Instructions Apply. See MCM: 2048) ([id number])By: Fast DO, Chaparrita A Fast DO, Chaparrita A Radiology - Chest- PA and LatBy: On: 05-May-2017 Intent Keri Singh MD Aerosol Treatment ([id number])By: Francisco On: 05-May-2017 Intent Keri MANN Radiology - ChestBy: Francisco MANN, On: 05-May-2017 Intent Keri Alonzo Comments: call wet read DRAIN/INJECT MAJOR JOINT OR BURSA On: 28-Feb-2017 Intent ()By: Keri Singh MD Comments: 1 cc Kenelog #[id number] Marcaine #[id number] Kenalog Injection, 10 mgm On: 28-Feb-2017 Intent (J3301)By: Keri Singh MD ELECTROCARDIOGRAM, COMPLETE (ECG) On: 10-Jan-2017 Intent (81041)By: Case Albrecht DOa Olivia Fast DO, Comments: ekg showed normal sinus rhythym, normal axis, no acute st/t wave changes Chaparrita A Flu Vaccine (Quadrivalent) 33959Mn: On: 27-Dec-2016 Intent SHONDA Andrade DRAIN/INJECT MAJOR JOINT OR BURSA On: 20-Aug-2016 Intent ()By: Keri Singh MD DRAIN/INJECT MAJOR JOINT OR BURSA On: 13-Aug-2016 Intent ()By: SHONDA Andrade Comments: lot: [id number]:intra articular dose:2ml given by:Dr. Francisco HUMPHREY signedER, PERSONAL FIN[employer]CIAL PLANNER injection #3 DOPPLER ULTRASOUND OF RIGHT CAROTID On: 10-Aug-2016 Intent ARTERY ([id number])By: Ambrocio WOLFF Chaparrita A Comments: end october Fast DO, Chaparrita A DEXA SCAN AXIAL SKELETON ([id number])By: On: 10-Aug-2016 Intent Fast DO, Chaparrita A Fast DO, Chaparrita A Comments: end october SCREENING DIGITAL TOMOSYNTHESIS OF On: 10-Aug-2016 Intent BREAST ([id number])By: Ambrocio WOLFF Chaparrita A Comments: end of october Fast DO, Chaparrita A DRAIN/INJECT MAJOR JOINT OR BURSA On: 06-Aug-2016 Intent ()By: Keri Singh MD DRAIN/INJECT INTERMED JOINT/BURSA On: 06-Aug-2016 Intent ()By: SHONDA Andrade Comments: lot:[id number]:left knee dose:2mlgiven by:Dr. Francisco HUMPHREY signedER, PERSONAL FIN[employer]CIAL PL[employer]NER injection number 2 Venous Doppler - LeftBy: Ambrocio WOLFF, On: 03-Aug-2016 Intent Chaparrita A Fast DO, Chaparrita A Comments: This is set up for August 05 at 11am- spoke with Rina in . DRAIN/INJECT INTERMED JOINT/BURSA On: 30-Jul-2016 Intent ()By: Keri Singh MD Comments: lot:[id number]:intra articular left knee dose: 2ml given by: Dr. Singh ABN signedER, PERSON[employer] FIN[employer]CIAL PL[employer]NER injection #1 Radiology - Knee - LeftBy: Fast DO, On: 26-May-2016 Intent Chaparrita A Fast DO, Chaparrita A Flu Vaccine (Quadrivalent) [id number]: On: 27-Jan-2016 Intent Fast DO, Chaparrita A Fast DO, Chaparrita A Comments: Lot #:[id number] date:10/01/16mount given:0.5mlRoute: IMSite given: left deltoidGiven by: CARMELINA Hook ADMINISTRATION OF INFLUENZA VIRUS On: 27-Jan-2016 Intent VACCINE (G0008)By: Fast DO, Chaparrita A Fast DO, Chaparrita A DOPPLER ULTRASOUND OF RIGHT CAROTID On: 22-Oct-2015 Intent ARTERY ([id number])By: Fast DO, Chaparrita A Fast DO, Chaparrita A MAMMOGRAM, SCREENING, BOTH BREAST On: 22-Oct-2015 Intent ([id number])By: Fast DO, Chaparrita A Fast DO, Chaparrita A Ultrasound - RenalBy: Fast DO, Chaparrita On: 14-Jul-2015 Intent A Fast DO, Chaparrita A Radiology - Knee - Left - Weight On: 11-Mar-2015 Intent BearingBy: Fast DO, Chaparrita A Fast DO, Chaparrita A Radiology - Knee - Right - Weight On: 11-Mar-2015 Intent BearingBy: Fast DO, Chaparrita A Fast DO, Chaparrita A Flu Vaccine (Quadrivalent) 67649Yv: On: 11-Feb-2015 Intent Fast DO, Chaparrita A Fast DO, Chaparrita A EKG (17368)By: Fast DO, Chaparrita A On: 05-Nov-2014 Intent Fast DO, Chaparrita A Comments: ekg showed normal sinus rhythym, normal axis, no acute st/t wave changes left axis DRAIN/INJECT SMALL JOINT OR BURSA On: 07-Oct-2014 Intent ()By: Keri Singh MD MAMMOGRAM, SCREENING, BOTH BREAST On: 02-Aug-2014 Intent ([id number])By: Ambrocio WOLFF Chaparrita A Fast DO, Comments: september Chaparrita A Cartoid DopplerBy: Fast DO, Chaparrita A On: 02-Aug-2014 Intent Fast DO, Chaparrita A DEXA SCAN AXIAL SKELETON (09190)By: On: 09-Apr-2014 Intent Fast DO, Chaparrita A Fast DO, Chaparrita A Prevnar 13 (81932)By: Ambrocio WOLFF, On: 30-Jan-2014 Intent Chaparrita A Fast DO, Chaparrita A Comments: Lot:[id number]:05/20Dose:0.5Route:imSite:l armGiven By:Jarred signed FLU VAC, SPLIT, >3 YEARS, INTRAMUSC On: 16-Jan-2014 Intent ([id number])By: Chaparrita Albrecht DO DO, Comments: Lot #:[id number] date:12/2015Amount given:0.5mlRoute: IMSite given: left deltoidGiven by: CARMELINA Hook A ADMINISTRATION OF INFLUENZA VIRUS On: 16-Jan-2014 Intent VACCINE (G0008)By: Ambrocio WOLFF, Chaparrita A Fast DO, Chaparrita A EKG ([id number])By: Ambrocio WOLFF Chaparrita A On: 17-Oct-2013 Intent Ambrocio WOLFF Chaparrita A Comments: ekg showed normal sinus rhythym, left axis, no acute st/t wave changes Radiology - Chest- PA and LatBy: On: 17-Sep-2013 Intent Ambrocio WOLFF, Chaparrita A Fast DO, Chaparrita A Aerosol Treatment ([id number])By: Ambrocio On: 17-Sep-2013 Intent DO, Chaparrita A Fast DO, Chaparrita A MRI - BrainBy: Ambrocio DO, Chaparrita A Fast On: 22-Jul-2013 Intent DO, Chaparrita A Cartoid DopplerBy: Fast DO, Chaparrita A On: 20-Jul-2013 Intent Fast DO, Chaparrita A MAMMOGRAM, SCREENING, BOTH BREASTS On: 20-Jul-2013 Intent ([id number])By: Fast DO, Chaparrita A Fast DO, Chaparrita A Eprescribed prescriptions ([id number])By: On: 20-Jul-2013 Intent Fast DO, Chaparrita A Fast DO, Chaparrita A Eprescribed prescriptions ([id number])By: On: 02-Feb-2013 Intent Марина Concepcion FLU VAC, SPLIT, >3 YEARS, INTRAMUSC On: 03-Jan-2013 Intent (38195)By: Марина Concepcion Comments: Lot #:[id number] date:mount given:0.5mlRoute: IMSite given: L dltdVIS and ABN signedGiven by: CARMELINA Hook ADMINISTRATION OF INFLUENZA VIRUS On: 03-Jan-2013 Intent VACCINE (G0008)By: Марина Concepcion CT - Abdomen & Pelvis (IV Contrast On: 17-Oct-2012 Intent Needed)By: Chaparrita Albrecht DO, DO, Comments: patient will be calling to set up Chaparrita A Eprescribed prescriptions ([id number])By: On: 10-Oct-2012 Intent Марина Concepcion Ear Irrigation ([id number])By: [place], On: 13-Jun-2012 Intent Ivy Comments: Ear Irrigation performed on: right earAmount/color removed cerumen: light brown, small amount removedOUtcome:Pt toleratedUsed wax curettes Wax Currettes (12740)By: [place], On: 13-Jun-2012 Intent Ivy PNEUM VAC ADLT/IMUMNOSPR, SBC/INTRM On: 13-Jun-2012 Intent (38751)By: Chaparrita Albrecht DO, DO, Comments: Lot:[id number]:09/09/13Dose:0.5mLRoute:IMSite:L armGiven By:BHUMI signed Chaparrita A EKG (66159)By: Chaparrita Albrecht DO On: 13-Jun-2012 Intent Chaparrita Albrecht DO Comments: ekg showed normal sinus rhythym, normal axis, no acute st/t wave changes MRI - BrainBy: Chaparrita Albrecht DO On: 13-Jun-2012 Chaparrita Valenzuela DO Comments: yonatan ADMINISTRATION OF PNEUMOCOCCAL On: 13-Jun-2012 Intent VACCINE (G0009)By: Chaparrita Albrecht DO, DO Chaparrita A Eprescribed prescriptions ([id number])By: On: 13-Jun-2012 Intent Марина Concepcion MAMMOGRAM, SCREENING, BOTH BREASTS On: 28-Dec-2011 Intent ([id number])By: Fast DO, Chaparrita A Fast DO, Chaparrita A DXA, BONE DENSITY, AXIAL SKELETON On: 28-Dec-2011 Intent (46536)By: Fast DO, Chaparrita A Fast DO, Chaparrita A MRI - BrainBy: Fast DO, Chaparrita A Fast On: 28-Dec-2011 Intent DO, Chaparrita A Comments: end of jan Cartoid DopplerBy: Fast DO, Chaparrita A On: 28-Dec-2011 Intent Fast DO, Chaparrita A Comments: jan Ultrasound - PelvisBy: Fast DO, On: 28-Dec-2011 Intent Chaparrita A Fast DO, Chaparrita A FLU VAC, SPLIT, >3 YEARS, INTRAMUSC On: 28-Dec-2011 Intent ([id number])By: Марина Concepcion Comments: Lot #:[id number] date:mount given:0.5mlRoute: IMSite given: left deltoidGiven by: CARMELINA Hook ADMINISTRATION OF INFLUENZA VIRUS On: 28-Dec-2011 Intent VACCINE (G0008)By: Марина Concepcion Aerosol Treatment ([id number])By: Ciesa On: 30-Nov-[address] - Abdomen & PelvisBy: Fast DO, On: 21-Sep-2011 Intent Chaparrita A Fast DO, Chaparrita A Comments: with special cuts through the kidney- october EKG ([id number])By: Марина Concepcion On: 15-Jun-2011 Intent Comments: ekg showed normal sinus rhythym, normal axis, no acute st/t wave changes MRI - BrainBy: Fast DO, Chaparrita A Fast On: 15-Jun-2011 Intent DO, Chaparrita A Comments: july MRI - [...] Brain/Head (IV Contrast On: 19-Jan-2011 Intent Needed)By: Ambrocio WOLFF, Chaparrita A Fast DO, Comments: Call results to Dr. Albrecht @ [phone] as soon as resulted please. Chaparrita A Eprescribed prescriptions ([id number])By: On: 11-Jan-2011 Intent Fast DO, Chaparrita A Fast DO, Chaparrita A MAMMOGRAM, SCREENING, BOTH BREASTS On: 11-Jan-2011 Intent ([id number])By: Fast DO, Chaparrita A Fast DO, Chaparrita A CT - Sinuses CompleteBy: Fast DO, On: 11-Jan-2011 Intent Chaparrita A Fast DO, Chaparrita A Cartoid DopplerBy: Fast DO, Chaparrita A On: 11-Jan-2011 Intent Fast DO, Chaparrita A ADMINISTRATION OF INFLUENZA VIRUS On: 11-Jan-2011 Intent VACCINE (G0008)By: Марина Concepcion FLU VAC, SPLIT, >3 YEARS, INTRAMUSC On: 11-Jan-2011 Intent (75945)By: Марина Concepcion Eprescribed prescriptions ([id number])By: On: 12-Oct-2010 Intent Fast DO, Chaparrita A Fast DO, Chaparrita A Renal DopplerBy: Fast DO, Chaparrita A On: 12-Oct-2010 Intent Fast DO, Chaparrita A Cartoid DopplerBy: Fast DO, Chaparrita A On: 12-Oct-2010 Intent Fast DO, Chaparrita A Comments: sept TDAP VACCINE >7 IM ([id number])By: On: 13-May-2010 Intent Helena Tineo LPN Comments: Lot #[id number]-7/25/13Site-left deltoidgiven by:[facility] EKG (96095)By: Марина Concepcion On: 13-May-2010 Intent Comments: ekg showed normal sinus rhythym, normal axis, no acute st/t wave changes Aerosol Treatment ([id number])By: Ciesa On: 22-Dec-2009 Intent MIRROR SILVERER, Johanna Espinal DopplerBy: Fast DO, Chaparrita A On: 01-Dec-2009 Intent Fast DO, Chaparrita A MAMMOGRAM, SCREENING, BOTH BREASTS On: 01-Dec-2009 Intent ([id number])By: Fast DO, Chaparrita A Fast DO, Chaparrita A DXA, BONE DENSITY, AXIAL SKELETON On: 01-Dec-2009 Intent (05737)By: Fast DO, Chaparrita A Fast DO, Chaparrita A Ultrasound - SpleenBy: Fast DO, On: 17-Jun-2009 Intent Chaparrita A Fast DO, Chaaprrita A EKG (19980)By: Марина Concepcion On: 10-Mar-2009 Intent Comments: ekg showed normal sinus rhythym, normal axis, no acute st/t wave changes FLU VAC, SPLIT, >3 YEARS, INTRAMUSC On: 09-Jan-2009 Intent (06086)By: Stacy Jorge Comments: Lot #[id number]-9/2010Site-left deltoidDose0.5mlgiven by Marycarmen Jorge LPN ADMINISTRATION OF INFLUENZA VIRUS On: 09-Jan-2009 Intent VACCINE (G0008)By: Stacy Jorge MAMMOGRAM, SCREENING, BOTH BREASTS On: 04-Dec-2008 Intent ([id number])By: Fast DO, Chaparrita A Fast DO, Chaparrita A MAMMOGRAM, SCREENING, BOTH BREASTS On: 03-Sep-2008 Intent ([id number])By: Fast DO, Chaparrita A Fast DO, Chaparrita A FLU VAC, SPLIT, >3 YEARS, INTRAMUSC On: 16-Jan-2008 Intent (58007)By: Janet Scherer RN Comments: Lot #: [id number] date: 09/10Amount given: 0.5 mlRoute: IMSite given: Left deltoidGiven by: Olivia Bell LPN ADMINISTRATION OF INFLUENZA VIRUS On: 16-Jan-2008 Intent VACCINE (G0008)By: Janet Scherer RN EKG (78980)By: Fast DO, Chaparrita A On: 29-Aug-2007 Intent Fast DO, Chaparrita A Comments: done km ADMINISTRATION OF PNEUMOCOCCAL On: 29-Aug-2007 Intent VACCINE (G0009)By: Fast DO, Chaparrita A Fast DO, Chaparrita A PNEUM VAC ADLT/IMUMNOSPR, SBC/INTRM On: 29-Aug-2007 Intent (71426)By: Fast DO, Chaparrita A Fast DO, Comments: 0.5cc given im lt arm [id number] exp 02-13-08 Chaparrita A DXA, BONE DENSITY, AXIAL SKELETON On: 29-Aug-2007 Intent (20143)By: Fast DO, Chaparrita A Fast DO, Chaparrita A MAMMOGRAM, SCREENING, BOTH BREASTS On: 29-Aug-2007 Intent (56334)By: Fast DO, Chaparrita A Fast DO, Chaparrita [...] : Patient Instructions Indication: Hypertension, benign Encounters Review On: 22-Mar-2018 10:49 Encounter Reason: Follow up for chronic medical issues - The patient feels well with minor complaints (a lot of anxiety this time of year), has decreased energy level (ok during the day, doesn't have a lot of stuff going on in her life right now) and [...] and sugar better and knee improved with shot, [ADDITIONAL REASON] Follow up tests - Date: (03/06 blood work). Encounter Diagnosis: Nonsmoker, BMI 27.0-27.9,adult, Diabetes mellitus type II, controlled, Hypertension, benign, Other and unspecified hyperlipidemia (272.4), Chronic kidney disease, stage 3, Vitamin D deficiency, Pneumococcal vaccination declined [facility] Office Visit On: 13-Mar-2018 [...] new people and be involved in the tenriism 0 bps are good and sugar looking [...] medical issues: she has been working with [employer] and trying to work on that- she got rid of respiratory infection but was sick for weeks and was on pred so her sugar up and chol up a bit- trying to add protein shakes drink more water- she is starting back at [employer]- diarrhea resolved- we did talk about going [...] that she had episode where went to [facility] and she couldnt remember where she was- and happened one other time where she didnt recognize the roads- sister had alzheimer s- weight down because was sick- but coming back up- she hasnt done counseling with hospice has been thru before- she lonely- not necessarily unhappy- she doing self help she is singing with tenriism- -michael kang are all in low 100s-130- going to [facility] for a month next monthEncounter Diagnosis: Nonsmoker, [...] Eddie and bp is good she joined [employer] sugar up bit doi ng ice cream-the bone density reviewed little thinner she not exercising routienly until just recent at [employer] and sees kidney doc next week and [...] maribel cordelia in hospice - going to prison end of month- too much to care [...] - has etoh /drug addiction- sister in [facility] with alzheimers- she not depressed but has [...] visual acuity (yearly). Note for Physical exam: [facility] Wellness Physical- Talk about trying Myrbetriq., [ADDITIONAL REASON] Follow up, Laboratory Test Results - Date: (09/2015- [facility] labs). , [ADDITIONAL REASON] Itching - [...] stenosis, asymptomatic, right, Hypertension, benign, Colon Polyp, [facility] WELLNESS PHYSICAL, Osteopenia (733.90), Pruritus, Mixed [...] Meningioma (Renamed from 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, 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, BRAIN/CADDYMASTER NEC (794.09)) [facility] Visit [...] Meningioma (Renamed from 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, 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, BRAIN/CADDYMASTER NEC (794.09)), Diabetes, Type II, controlled (250.00), [...] [facility] by[facility]- - takes ??lorazepam 1-2 times a week [...] Meningioma (Renamed from 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, 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, BRAIN/CADDYMASTER NEC (794.09)), Colon Polyp [facility] [...] Meningioma (Renamed from 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, 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, BRAIN/CADDYMASTER NEC (794.09)), OCCLUSION AND STENOSIS OF CAROTID [...] Meningioma (Renamed from 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, 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, BRAIN/CADDYMASTER NEC (794.09)), Chronic glomerulonephritis with lesion of [...] Meningioma (Renamed from 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, 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, BRAIN/CADDYMASTER NEC (794.09)), Other and unspecified hyperlipidemia (272.4), [...] Meningioma (Renamed from 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, 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, BRAIN/CADDYMASTER NEC (794.09)) [facility] Office Visit On: 07-May-2013 12:25 Encounter Diagnosis: Depression (311.) End: 07-May-2013 12:26 [facility] Office Visit On: 02-Feb-2013 12:58 Encounter Reason: Follow up tests - Date: (01/29/13)., [ADDITIONAL REASON] Follow up for chronic medical issues - The patient feels well with minor complai End: 04-Feb-2013 18:37 nts (flucuating blood sugars- went off Lori), has good energy level and is sleeping well. Patient has been compliant with instructions. Current medication use: experiencing side effects (not sure if v iibryd plus antibiotics were making me sick) and compliant with dosing regimen. Patient sleeps 8 hours per night. Nutrition: balanced diet. Note for Follow up for chronic medical issues: she feels lik e joseyd has been uplifting and not depressed- went [...] for Follow up for chronic medical issues: P t currently has a cough but isnt wanting [...] Meningioma (Renamed from 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, 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, BRAIN/CADDYMASTER NEC (794.09)), Gerd (530.81), Hyperlipidemia, Unspecified (272.4), [...] Meningioma (Renamed from 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, 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, BRAIN/CADDYMASTER NEC (794.09)), Hypertension,benign(401.1), OCCLUSION AND STENOSIS OF [...] Meningioma (Renamed from 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, 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, BRAIN/CADDYMASTER NEC (794.09)), Diabetes, Type II, controlled (250.00), [...] Meningioma (Renamed from 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, 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, BRAIN/CADDYMASTER NEC (794.09)), Hypertension,benign(401.1), Osteopenia (733.90), Depression (311.), [...] weight down 23 pounds- and trying joined [employer]- she feels well - she increased celexa [...] Meningioma (Renamed from 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, 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, BRAIN/CADDYMASTER NEC (794.09)), Chronic glomerulonephritis with lesion of [...] Meningioma (Renamed from 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, 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, BRAIN/CADDYMASTER NEC (794.09)) End: 26-Jan-2011 16:53 [facility] Office Visit On: 19-Jan-2011 14:30 Encounter Diagnosis: brain tumor End: 21-Sep-2011 8:09 [facility] Phone Encounter On: 19-Jan-2011 13:41 Encounter Diagnosis: 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, 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, BRAIN/CADDYMASTER NEC (794.09) End: 19-Jan-2011 13:44 [facility] [...] again -- she is getting surgery on melina Melton-- her bps have been running 90s at [...] (V04.81), Degenerative Disc Disease - Lumbar (722.52), [facility] Office Visit On: 06-Dec-2007 [...] Disease - Lumbar (722.52), Osteopenia (733.90), Hypertension,benign(401.1), [facility] [place] [facility] Historical Summary On: 30-Aug-2007 [...] and she would like to s braxton Ozuna Santana-- she has white coat sx- mood is good on lexapro Encounter Diagnosis: Hypertension,benign(401.1), Diabetes, Type II, controlled (250.00), arthritis,unspecified (716.90), Other and unspecified hyperlipidemia (272.4), fsgs, LOW BACK PAIN WITH RADICULOPATHY (724.4) [facility] Payers MedicareAARP/[facility]ENTERGAGAN ALBERT; a guarantor
--- OUTSIDE RECORDS SUMMARY | 2018-06-25 21:45 | XMS RPT_ITS | Continuity of Care Document ---
:1940 Author Organization [facility] Address [address] [place] [address] Phone Care Team Providers Name Role Phone [...] Knee pain, unspecified laterality (719.46) Comments: Valorie:lot: [id number]: 09/20site/route: L knee Status: Active Leg pain, [...] 90 {Tablet} Refills: 3 Ordered:17-Nov-2017 , Chaparrita KADIEast DO, Chaparrita A Start : 17-Nov-2017 Active FreeStyle Lite Test In Vitro Strip 1 (one) Strip bid for 0 days Quantity: 100 {Strip} Refills: 5 Ordered:20-Feb-2018 , Chaparrita KADIEast DO, Chaparrita A Start : 20-Feb-2018 Active Comments:Dx:250.00patient is NOT insulin dependant Hydrocodone-Acetaminophen 5-325 MG Oral Tablet 1 to 2 Tablet q 6hrs, prn for 0 days Quantity: 60 {Tablet} Refills: 0 Ordered:16-Dec-2017 , Chaparrita KADIEast DO, Chaparrita A Start : 16-Dec-2017 Active [...] 1 {Inhaler} Refills: 0 Ordered:17-Sep-2013 , Chaparrita AFast DO, Chaparrita A Start [...] DO, Debra A Start : 22-Aug-2017 Active Trulicity 0.75 MG/0.5ML Subcutaneous Solution Pen-injector 1 (one) Soln Pen-inj injection q week for 0 days Quantity: 6 {Pre-filled_Pen_Syringe} Refills: 0 Ordered:20-Feb-2018 Ambrocio WOLFFChaparrita DO, Debra A Start : 20-Feb-2018 Active Comments:0.75mg x 1 week then increase to 1.5mg Victoza 18 MG/3ML Subcutaneous Solution Pen-injector 1 [...] days Quantity: 60 {Capsule} Refills: 0 Ordered:16-Dec-2017 Ambrocio WOLFFChaparrita DO, Debra A Start : 16-Dec-2017 Active Aricept 5 MG Oral Tablet 1 (one) Tablet qd in evening for 0 days Quantity: 30 {Tablet} Refills: 3 Ordered:16-Dec-2017 Inna Reynoso Start : 28-Sep-2017 End : 16-Dec-2017 Inactive Comments:may use generic Ativan 0.5 MG Oral Tablet 1 Tablet bid/prn for 30 days Quantity: 60 {Tablet} Refills: 0 Ordered:25-Oct-2017 Ambrocio WOLFFChaparrita DO, Debra A Start : 25-Oct-2017 End : 24-Nov-2017 Inactive Comments:sixty Benzonatate 200 MG Oral Capsule 1 (one) Capsule Capsule bid prn cough for 0 days Quantity: 20 {Capsule} Refills: 0 Ordered:06-Jun-2017 Ambrocio WOLFFChaparrita DO, Debra A Start : 05-May-2017 End : 06-Jun-2017 [...] spray daily for 0 days Quantity: 1 {[place]} Refills: 0 Ordered:04-May-2016 SHONAD Andrade Start : 27-Jan-2016 End : 04-May-2016 [...] qd for 0 days Refills: 0 Ordered:04-Dec-2008 Ambrocio WOLFFCaseolivia ENGLEkaren DO Chaparrita A Start : 04-Dec-2008 End : 04-Dec-2008 Discontinued Margarita 5-40 MG Oral Tablet 1 Tablet qd for 0 days Quantity: 30 {Tablet} Refills: 7 Ordered:22-Feb-2017 Марина Concepcion Start : 04-May-2016 End : 22-Feb-2017 Discontinued BUSPIRONE HCL, 7.5MG (Oral Tablet) 1 Tablet tid for 0 days Quantity: 360 {Tablet} Refills: 2 Ordered:02-Feb-2013 Caseolivia ENGLEkaren DO Chaparrita A Start : 02-Feb-2013 End : 02-Feb-2013 Discontinued Comments:wean off BYETTA 10 MCG PEN, 10MCG/0.04ML (Subcutaneous Solution) 1 (one) Solution bid for 0 days Quantity: 1 {pen} Refills: 3 Ordered:02-Feb-2013 Caseolivia ENGLEkaren WOLFF Chaparrita A Start : 02-Feb-2013 End : [...] days Quantity: 90 {Tablet} Refills: 3 Ordered:03-Jan-2013 Chaparrita ENGLEkaren Chaparrita A Start : 03-Jan-2013 End : [...] Quantity: 120 {Tablet} Refills: 0 Ordered:04-Mar-2008 Fast , Chaparrita AFast Chaparrita Baker Start : 04-Mar-2008 End : 04-Mar-2008 Discontinued [...] and dispense 8 ounes TOTAL mixed solutionCal [id number] if questions SPECTAZOLE, 1% (External Cream) 1 [...] days Refills: 3 Ordered:14-Jul-2015 Chaparrita Albrecht DOast DO, Chaparrita A Start : 14-Jul-2015 End [...] End : 11-Feb-2015 Discontinued Comments:th[age], [facility] Allergies and Adverse Reactions Name Dates Details [...] 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 2016 right Cholecystectomy Completed lumbar zadvmi==9222 Completed Tonsillectomy Completed Date Value Details 19-Dec-2017 Echocardiogram Complete Result: Comments: See Note; NOTES: [facility] Cardiovascular Services [address] [place] [address] Echo Complete 12/19/17 0800 MR#: [id number] Acct: [id number] Name: CLARENCE ALBERT ep #: [id number] : 1940 77 From: Chuckie Cormier MD Attending Dr: Chaparrita Albrecht DO Status: REG CLI Ordering Dr: Chaparrita Albrecht DO Date: 12/19/17 Location: [facility] Sex: F C Admitted: Reason [...] Dictated: 12/19/17 0800 Date Transcribed: 12/19/17 1022 Pruner: Signed 07-Dec-2017 Carotid Duplex Ultrasound Result: Comments: See Note; NOTES: [facility] Cardiovascular Services [address] [place] [address] Carotid Duplex Ultrasound 12/06/17 0901 MR#: [id number] Acct: [id number] Name: CLARENCE WHITTINGTON Rep #: [id number] : 1940 77 From: Anurag Loya MD [...] the left vertebral artery. Procedure Carotid Duplex 50339. Exam performed in department. Interpretation Summary Mild (<50%) stenosis right extracranial internal carotid. Mild (<50%) stenosis left extracranial internal carotid. Flow within the vertebral arteries is antegrade bilaterally. __ __ Ordering Physician: Chaparrita Albrecht Performed By: Margot Benton RVT and Student 12/07/17 0809 Date Anurag Loya MD CC: Chaparrita Albrecht DO Date Dictated: 12/06/17900 Date Transcribed: 12/07/17808 Pruner: Signed 06-Dec-2017 SCREENING MAMM (CAD), BILAT Result: Comments: See Note; NOTES: [facility] Imaging Services [address] [place] [address] SCREENING MAMM (CAD), BILAT MR#: [id number] Acct: [id number] Name: CLARENCE ALBERT Rep #: [id number] : 1940 F 77 From: Misael Hebert MD PCP: Chaparrita Albrecht DO Status: REG CLI Study: SCREENING MAMM (CAD), BILAT Date of Exam: 12/06/17 Exam# [id number] Ordering Dr: Chaparrita Albrecht DO MAMM OGRAPHY [...] delay biopsy of a clinically suspicious abnormality. [id number] Electronically Signed: Misael Hebert MD at 15:31 EDT Tel [phone], Se rvice support , CC: Chaparrita Albrecht DO Pruner: Signed 10-Jun-2017 Brain W/WO Contrast Result: Comments: See Note; NOTES: [facility] Imaging Services [address] [place] [address] Brain W/WO Contrast MR#: [id number] Acct: [id number] Name: CLARENCE ALBERT Rep #: [id number] : 1940 F 77 From: Laya Montilla MD PCP: Chaparrita Albrecht DO Status: REG CLI Study: Brain W/WO Contrast Date of Exam: 06/10/17 Exam# [id number] Ordering Dr: Chaparrita Albrecht DO STUDY: MRI [...] Service support , CC: Chaparrita Albrecht DO Pruner: Signed 05-May-2017 Chest PA and Lateral Result: Comments: See Note; NOTES: [facility] Imaging Services [address] [place] [address] Chest PA and Lateral MR#: [id number] Acct: [id number] Name: CLARENCE ALBERT Rep #: [id number] : 1940 F 77 From: Edwar Patino MD PCP: Chaparrita Albrecht DO Status: REG CLI Study: Chest PA and Lateral Date of Exam: 05/05/17 Exam# [id number] Ordering Dr: Keri Singh MD STUDY: X-RAY [...] CC: Keri Singh MD; Chaparrita Albrecht DO Pruner: Signed 02-Nov-2016 Dexa Bone Density Study (HP) Result: Comments: See Note; NOTES: [facility] Imaging Services [address] [place] [address] Verdana 4d Dexa Bone Density Study (HP) MR#: [id number] Acct: [id number] Name: LYNNE ALBERT Rep #: [id number] : 1940 F 76 From: Misael Hebert MD PCP: Chaparrita Albrecht DO Status: REG CLI Study: Dexa Bone Density Study (HP) Date of Exam: 11/02/16 Exam# [id number] Ordering Dr: Laura DO STUDY: DUAL ENERGY [...] Misael Hebert MD at 11:02 EDT Tel [phone], Service support , CC: Chaparrita Albrecht DO Pruner: Signed 02-Nov-2016 SCREENING MAMM (CAD), BILAT Result: Comments: See Note; NOTES: [facility] Imaging Services [address] [place] [address] Verdana 4d SCREENING MAMM (CAD), BILAT MR#: [id number] Acct: [id number] Name: CLARENCE ALBERT Rep #: [id number] : 1940 F 76 From: Misael Hebert MD PCP: Chaparrita Albrecht DO Status: REG CLI Study: SCREENING MAMM (CAD), BILAT Date of Exam: 11/02/16 Exam# [id number] Ordering Dr: Case Albrecht DO MAMMOGRAPHY - [...] delay biopsy of a clinically suspicious abnormality. [id number] Electronically Signed: Misael Hebert MD at 12:44 EDT Tel [phone], Service support , CC: Chaparrita Albrecht DO Pruner: Signed 05-Aug-2016 Venous Duplex Lower Extremity Result: Comments: See Note; NOTES: [facility] Cardiovascular Services [address] [place] [address] Venous Duplex US, Unilateral 08/05/16 1053 MR#: [id number] Acct: [id number] Name: CLARENCE WEI Rep #: [id number] : 1940 76 From: Elvin Natarajan MD [...] Dictated: 08/05/16 1053 Date Transcribed: 08/05/16 1127 Pruner: Signed 27-May-2016 Knee 4 or More Views Result: Comments: See Note; NOTES: [facility] Imaging Services [address] [place] [address] Verdana 4d Knee 4 or More Views MR#: [id number] Acct: [id number] Name: CLARENCE ALBERT Rep #: [id number] : 1940 F 76 From: Misael Hebert MD PCP: Chaparrita Albrecht DO Status: REG CLI Study: Knee 4 or More Views Date of Exam: 05/27/16 Exam# [id number] Ordering Dr: Kylah Linda DO UDY: X-RAY [...] MD at 10:41 EST , Service support [phone], CC: Chaparrita Albrecht DO; Kylah Linda DO Pruner: Signed 13-May-2016 Sinus/Facial Bone Result: Comments: See Note; NOTES: [facility] Imaging Services [address] [place] [address] Verdana 4d Sinus/Facial Bone MR#: [id number] Acct: [id number] Name: CLARENCE ALBERT Rep #: [id number] : 1940 F 76 From: Godwin Winter MD PCP: Chaparrita Albrecht DO Status: REG CLI Study: Sinus/Facial Bone Date of Exam: 05/13/16 Exam# [id number] Ordering Dr: Alejandro Silverman MD STUDY: CT [...] MD at 7:35 EST , Service support [phone], CC: Chaparrita Albrecht DO; Alejandro Silverman MD Pruner: Signed 21-Apr-2016 Emergency Department Summary Result: Comments: See Note; NOTES: [facility] Medical Records Department [address] [place] [address] Emergency Department Summary MR#: [id number] Acct: [id number] Name: CLARENCE ALBERT Rep #: [id number] : 1940 76 From: Carissa Murphy MD [...] epistaxis. CARISSA MURPHY MD T: NTS JOB: [id number] 04/21/16 0806 <Electronically signed by Carissa Murphy MD> Date Carissa donovan MD Cosigner Signature (If Indicated): Date CC: Chaparrita Albrecht DO Date Dictated: 04/20/161711 Date Transcribed: 04/20/161711 Pruner: Signed 20-Apr-2016 Discharge Instruction Result: Comments: See Note; NOTES: [facility] Medical Records Department [address] [place] [address] Discharge Instruction 04/20/16 1303 MR#: [id number] Acct: [id number] Name: CLARENCE ALBERT Rep #: [id number] : 1940 76 From: Carissa Murphy MD [...] your Primary Care Provider. Call [facility] ([phone]) or report to the closest Emergency Room. Call 911 if necessary. 04/20/16 3669 <Electronically signed by Carissa Murphy MD> Date Carissa Murphy MD Cosigner Signature (If I ndicated): Date CC: Chaparrita Albrecht DO 02-Nov-2015 Carotid Duplex Ultrasound Result: Comments: See Note; NOTES: [facility] Cardiovascular Services [address] [place] [address] Carotid Duplex Ultrasound 10/30/15 1100 MR#: [id number] Acct: [id number] Name: CLARENCE ALBERT Rep #: [id number] : 1940 75 From: Elvin Natarajan MD Attending Dr: Chaparrita Albrecht DO Status: REG CLI Ordering Dr: Chaparrita Albrecht DO Date: 10/30/15 Location: [facility] Sex: F C Adm itted: [...] the left vertebral artery. Procedure Carotid Duplex 53631. The exam was diagnostic. Exam performed in [...] Dictated: 10/30/15 1100 Date Transcribed: 11/02/15 1143 Pruner: Signed 30-Oct-2015 Bilat Scrn Digital AND CAD Result: Comments: See Note; NOTES: [facility] Imaging Services [address] [place] [address] Verdana 4d Bilat Scrn Digital AND CAD MR#: [id number] Acct: [id number] Name: CLARENCE ALBERT Rep #: [id number] : 1940 F 75 From: Andres Brady MD PCP: Chaparrita Albrecht DO Status: REG CLI Study: Bilat Scrn Digital AND CAD Date of Exam: 10/30/15 Exam# [id number] Ordering Dr: Chaparrita Albrecht DO MAMMOGRAPHY - [...] biop sy of a clinically suspicious abnormality. [id number] Electronically Signed: Andres Brady MD at 17:48 EDT Tel , Service support [phone], CC: Chaparrita Albrecht DO Pruner: Signed 30-Oct-2015 Bilat Scrn Digital AND CAD Result: Comments: See Note; NOTES: [facility] Imaging Services [address] [place] [address] Verdana 4d Bilat Scrn Digital AND CAD MR#: [id number] Acct: [id number] Name: CLARENCE ALBERT Rep #: [id number] : 1940 F 75 From: Andres Brady MD PCP: Chaparrita Albrecht DO Status: REG CLI Study: Bilat Scrn Digital AND CAD Date of Exam: 10/30/15 Exam# [id number] Ordering Dr: Chaparrita Albrecht DO MAMMOGRAPHY - [...] abnormalities are identified. CC: Chaparrita Albrecht DO Pruner: Signed 22-Oct-2015 ELECTROCARDIOGRAM, COMPLETE (ECG) (21637) Comments: ekg showed normal sinus rhythym, normal axis, no acute st/t wave changes no change Result: [MEASUREMENTS ANALYSIS] Date of Test: 10/22/2015 14:41:29; Heart Rate: 71; [place] Interval: 140; QRS: 94; QT Interval: 384; Corrected QT Interval (QTc): 403; P Wave [place]: 58; QRS Wave [place]: -3; T Wave [place]: 56; Blood Pressure: 128/76 [ECG DIAGNOSTIC STATEMENTS] Date of Test: 10/22/2015 14:41:29; Summary: Sinus Rhythm Low voltage -possible pulmonary disease. ABNORMAL 22-Jul-2015 Kidney and Bladder Result: Comments: See Note; NOTES: [facility] Imaging Services [address] [place] [address] Verdana 4d Kidney and Bladder MR#: [id number] Acct: [id number] Name: Yaniv ALBERT Rep #: [id number] : 1940 F 75 From: Nir Sanchez MD PCP: Chaparrita Albrecht DO Status: REG CLI Study: Kidney and Bladder Date of Exam: 07/22/15 Exam# [id number] Ordering Dr: Chaparrita Albrecht DO STUDY: RENAL [...] at 4:59 EDT Tel , Service support [phone], CC: Chaparrita Albrecht DO Pruner: Signed 11-Mar-2015 Knee 4 or More Views Result: Comments: See Note; NOTES: [facility] Imaging Services [address] [place] [address] Verdana 4d Knee 4 or More Views MR#: [id number] Acct: [id number] Name: CLARENCE ALBERT Rep #: [id number] : 1940 F 74 From: Trent Cameron DO PCP: Chaparrita Albrecht DO Status: REG CLI Study: Knee 4 or More Views Date of Exam: 03/11/15 Exam# [id number] Ordering Dr: Case Albrecht DO STUDY: X-RAY [...] at 7:45 EST Tel , Service support [phone], RAD/Knee 4 or More Views IMPRESSION: Degener ative changes within the knee. No acute fracture. Small suprapatellar effusion. Electronically Signed: Trent Cameron DO at 7:45 EST Tel , Service support [phone], CC: Chaparrita Albrecht DO Pruner: Signed 11-Mar-2015 Knee 4 or More Views Result: Comments: See Note; NOTES: [facility] Imaging Services [address] [place] [address] Verdana 4d Knee 4 or More Views MR#: [id number] Acct: [id number] Name: CLARENCE ALBERT Rep #: [id number] : 1940 F 74 From: Trent Cameron DO PCP: Chaparrita Albrecht DO Status: REG CLI Study: Knee 4 or More Views Date of Exam: 03/11/15 Exam# [id number] Ordering Dr: Case Albrecht DO STUDY: X-RAY [...] at 7:46 EST Tel , Service support [phone], RAD/Knee 4 or More Views IMPRESSION: Mild degenerative changes. No acute bony abnormality. Electronically Signed: Trent Cameron DO at 7:46 EST Tel , Service support [phone], CC: Chaparrita Albrecht DO Pruner: Signed 18-Oct-2014 Carotid Duplex Ultrasound Result: Comments: See Note; NOTES: [facility] Cardiovascular Services [address] [place] [address] Carotid Duplex Ultrasound 10/18/14 1331 MR#: [id number] Acct: [id number] Na me: CLARENCE ALBERT Rep #: [id number] : 1940 74 From: Elvin Natarajan MD [...] the left vertebral artery. Procedure Carotid Duplex 62546. The exam was diagnostic. Exam performed in [...] Dictated: 10/18/14 1331 Date Transcribed: 10/18/14 1616 Pruner: Signed 18-Oct-2014 Bilat Scrn Digital AND CAD Result: Comments: See Note; NOTES: [facility] Imaging Services [address] [place] [address] Breast Imaging Report MR#: [id number] Acct: [id number] Name: CLARENCE ALBERT Rep #: [id number] : 1940 F 74 From: Misael Hebert MD PCP: Chaparrita Albrecht DO Status: REG CLI Study: Saad Jaffe Digital AND CAD Date of Exam: 10/18/14 Exam# [id number] Ordering Dr: Chaparriat Albrecht DO MAMMOGRAPHY - BILATERAL SCREENING REASON [...] of a clinically suspicious abnormality. Electronically Signed: iMsael redmond MD at 13:44 EDT Tel [phone], Service support [phone], CC: Chaparrita Albrecht DO Pruner: Signed 09-Jul-2014 Dexa Bone Density Study (HP) Result: Comments: See Note; NOTES: [facility] Imaging Services [address] [place] [address] Bone Density Report MR#: [id number] Acct: [id number] Name: CLARENCE ALBERT Rep #: [id number] : 1940 F 74 From: Misael Hebert MD PCP: Chaparrita Albrecht DO Status: [facility] CLI Study: Dexa Bone Density Study (HP) Date of Exam: 07/09/14 Exam# [id number] Ordering Dr: Chaparrita Albrecht DO STUDY: DUAL [...] Angel Hebert MD at 14:55 EDT Tel [phone], Service support [phone], CC: Chaparrita Albrecht DO Pruner: Signed 17-Sep-2013 Chest PA and Lateral Result: Comments: See Note; NOTES: [facility] Imaging Services [address] [address] Radiology Report MR#: [id number] Acct: [id number] Name: CLARENCE ALBERT Rep #: [id number] : 1940 F 73 From: David Bennett MD PCP: Chaparrita Albrecht DO Status: REG CLI Study: Chest PA and Lateral Date of Exam: 09/17/13 Exam# [id number] Ordering Dr: Chaparrita Albrecht DO STUDY: X-RAY [...] MD at 20:44 EDT , Service support [phone], RAD/Chest PA and Lateral IMPRESSION: No focal infiltrate or edema. Electronic ally Signed: David Bennett MD at 20:44 EDT , Service support [phone], CC: Chaparrita Albrecht DO Pruner: Signed 17-Sep-2013 Spirometry (27350) Result: 29-Aug-2013 Carotid Duplex Ultrasound Result: Comments: See Note; NOTES: [facility] Cardiovascular Services [address] [place] [address] Carotid Duplex Ultrasound 08/24/13 0939 MR#: [id number] Acct: [id number] Chalo e: CLARENCE ALBERT Rep #: [id number] : 1940 73 From: Anurag Loya MD [...] in the left bulb. Procedure Carotid Duplex 63499. Exam perfor med in department. Interpretation Summary Mild (<50%) stenosis right extracranial internal carotid. Mild (<50%) stenosis left extracranial internal carotid. Flow within the vertebra l arteries is antegrade bilaterally. Ordering Physician: Chaparrita Albrecht Performed By: Kendal Benton RVT : Chaparrita Albrecht DO Date Dictated: 08/24/13 0939 Date Transcribed: 08/29/13 1118 Pruner: Signed Immunization Name Dates Details Influenza (3 years and up) on: 16-Jan-2008 Comments: Lot #: [id number] date: 09/10Amount given: 0.5 mlRoute: IMSite given: Left deltoidGiven by: Olivia Bell LPN Influenza (3 years and up) on: 09-Jan-2009 Comments: Lot #[id number]-left deltoidDose0.5mlgiven by Marycarmen Jorge LPN Pneumococcal (2 years and up) on: 29-Aug-2007 Comments: 0.5cc given im lt arm [id number] exp 02-13-08 Family History Unknown Family Member [...] smoker Vital Signs Date Test Result Details :12 Pulse 70 /min Comments: Pattern: Regular [...] Arm; Cuff Size: Large Height 63 in 88-Dqw-602710:01 Temperature 98.3 f Comments: Method: Oral Pulse [...] copy of this report has been sent [phone].PATIENT WAS FASTINGPERFORMED BY: [facility]CoEast [facility] CenterPlinln4185 [facility] [id number] Alb/Creat Ratio 4475.5 {mg/g_creat} (Abnormal) Range: 0.0-30.0 Comments: Normal: 0.0 - 30.0 Albuminuria: 31.0 - 300.0 Clinical albuminuria: >300.0 Albumin, Urine 2085.6 ug/mL (Normal) Comments: Results confirmed ondilution. Creatinine, Urine 46.6 mg/dL (Normal) :33 CBC With Differential/Platelet Comments: A courtesy copy of this report has been sent [phone].PATIENT WAS FASTINGPERFORMED BY: [facility]E [facility] Chxgpz0310 [place] [id number] Information: ADD CBC Immature Grans (Abs) 0.0 [...] copy of this report has been sent [phone].PATIENT WAS FASTINGPERFORMED BY: [facility] Gpjxwi2460 [facility] [place] [id number] :33 Range: 1.6-2.3 :33 Microscopic Examination Comments: A courtesy copy of this report has been sent [phone].PATIENT WAS FASTINGPERFORMED BY: [facility] Llenmk8668 [facility] [place] [id number] Bacteria Few (Normal) Mucus Threads Present (Normal) Epithelial Cells (non 0-10 {/hpf} Range: 0 - 10 renal) (Normal) RBC 0-2 {/hpf} (Normal) Range: 0 - 2 WBC 0-5 {/hpf} (Normal) Range: 0 - 5 : PTH, Intact 29 pg/mL (Normal) Comments: A courtesy copy of this report has been sent [phone].PATIENT WAS FASTINGPERFORMED BY: [facility] Campuslin6370 [facility]Dublin [place] [id number] 33 Range: 15-65 :33 Renal Panel (10) Comments: A courtesy copy of this report has been sent [phone].PATIENT WAS FASTINGPERFORMED BY: [facility]ceptionS[facility] Boyyfv2833 [facility] CenterD[facility] [place] [id number] Phosphorus 4.0 mg/dL (Normal) Range: 2.5-4.5 :33 Vitamin D Hydroxy (38852) Comments: A courtesy copy of this report has been sent [phone].PATIENT WAS FASTINGPERFORMED BY: [facility] Uqpkne9073 [facility] CenterD[facility] [place] [id number] Vitamin D, 25-Hydroxy 36.8 ng/mL (Normal) Range: 30.0-100.0 Comments: Vitamin D deficiency has been defined by the [place] of[place]icine and an Endocrine Society practice guideline as alevel of serum 25-OH vitamin D less than 20 ng/mL (1,2).The Endocrine Society went on to further define vitamin Dinsufficiency as a level between 21 and 29 ng/mL (2).1. IOM ([place] of Medicine). 2010. Dietary reference intakes for calcium and D. [place]: The National Academies Press.2. Holick MF, Rosette LOPEZ, Tommy SWAIN, et al. Evaluation, treatment, and prevention of vitamin D deficiency: an Endocrine Society clinical practice guideline. JCEM. 2010; 96(7):1911-30. :33 URINALYSIS, W/ MICRO (09530) Comments: A courtesy copy of this report has been sent [phone].PATIENT WAS FASTINGPERFORMED BY: TalkableEast [facility] CenterPkdcdo5887 [facility] [id number] Microscopic Examination See below: (Normal) Comments: Microscopic was indicated and was performed. Nitrite, Urine Negative (Normal) Urobilinogen,Semi-Qn 0.2 mg/dL (Normal) Range: 0.2-1.0 Bilirubin Negative (Normal) Occult Blood Negative (Normal) Ketones Negative (Normal) Glucose Negative (Normal) Protein 3+ (Abnormal) WBC Esterase Negative (Normal) Appearance Clear (Normal) Urine-Color Yellow (Normal) pH 5.5 (Normal) Range: 5.0-7.5 Specific [place] 1.012 (Normal) Range: 1.005-1.030 :33 LIPID PANEL (00427) Comments: A courtesy copy of this report has been sent [phone].PATIENT WAS FASTINGPERFORMED BY: TalkableEast [facility] Medical CenterJqjozn5325 [facility] [id number] LDL/HDL Ratio 1.4 {ratio} (Normal) Range: 0.0-3.2 [...] copy of this report has been sent [phone].PATIENT WAS FASTINGPERFORMED BY: [facility]6370 [facility] [id number] (77956) ALT (SGPT) 11 [iU]/L (Normal) Range: 0-32 [...] 8-27 Glucose 162 mg/dL (Abnormal) Range: 65-99 07-Ixj-643603:24 HgA1C , Office (72501) HgA1C , Office 6.5 % (Normal) Range: 4.6 - 7.1 :33 HGB A1C (44310) Comments: A courtesy copy of this report has been sent [phone].PATIENT WAS FASTINGPERFORMED BY: [facility]6370 [facility] [id number] Hemoglobin A1c 6.3 % (Abnormal) Range: 4.8-5.6 Comments: . Prediabetes: 5.7 - 6.4 Diabetes: >6.4 Glycemic control for adults with diabetes: <7.0 :14 LIPID PANEL (60671) Comments: PATIENT WAS FASTINGPERFORMED BY: [facility]able [facility] [id number] LDL/HDL Ratio 1.1 {ratio} (Normal) Range: 0.0-3.2 [...] (Normal) Range: 100-199 :14 Vitamin D Hydroxy (98378) Comments: PATIENT WAS FASTINGPERFORMED BY: Leaders202070 [facility] [id number] Vitamin D, 25-Hydroxy 37.8 ng/mL (Normal) Range: 30.0-100.0 Comments: Vitamin D deficiency has been defined by the [place] ofMedicine and an Endocrine Society practice guideline as alevel of serum 25-OH vitamin D less than 20 ng/mL (1,2).The Endocrine Society went on to further define vitamin Dinsufficiency as a level between 21 and 29 ng/mL (2).1. IOM ([place] of Medicine). 2010. Dietary reference intakes for calcium and D. [place]: The National Academies Press.2. Mira MF, Rosette NC, Tommy SWAIN, et al. Evaluation, treatment, and prevention of vitamin D deficiency: an Endocrine Society clinical practice guideline. JCEM. 2010; 96(7):1911-30. :14 CBC with auto diff (14520) Comments: PATIENT WAS FASTINGPERFORMED BY: [employer]able Rznbfl8844 [facility] [id number] Immature Grans (Abs) 0.0 {x10E3/uL} (Normal) Range: [...] PANEL, COMPREHENSIVE Comments: PATIENT WAS FASTINGPERFORMED BY: LabCoEast Orange VA Medical CenterWindno5829 [facility] [id number] (44309) ALT (SGPT) 10 [iU]/L (Normal) Range: 0-32 [...] 8-27 Glucose 142 mg/dL (Abnormal) Range: 65-99 99-Ink-39117:40 MICROALBUMIN: CREATININE RATIO Comments: PATIENT WAS FASTINGPERFORMED BY: [employer] [id number] (09963) AND (49151) Alb/Creat Ratio 4213.3 {mg/g_creat} (Abnormal) Range: 0.0-30.0 Albumin, Urine 3206.3 ug/mL (Normal) Comments: Results confirmed ondilution. Creatinine, Urine 76.1 mg/dL (Normal) 29-Vyj-25958:40 CBC & PLATELETS (AUTO) (66590) Comments: please fax to Dr. Austin- [phone]; PATIENT WAS FASTINGPERFORMED BY: [facility]6370 [facility] [id number] Platelets 148 {x10E3/uL} (Abnormal) Range: 150-379 RDW [...] PANEL Comments: please fax to Dr. Austin- [phone]; PATIENT WAS FASTINGPERFORMED BY: [facility] [id number] Information: [id number] FX DR. SANTANA (84101) Albumin 3.1 g/dL (Abnormal) Range: 3.5-4.8 Phosphorus [...] 133 mg/dL (Abnormal) Range: 65-99 :40 MAGNESIUM (76116) Comments: please fax to Dr. Austin- [phone]; PATIENT WAS FASTINGPERFORMED BY: [facility]6370 [employer] [place] [id number] Magnesium 1.9 mg/dL (Normal) Range: 1.6-2.3 :40 CALCIFEDIOL (44979) Comments: please fax to Dr. Austin- [phone]; PATIENT WAS FASTINGPERFORMED BY: Mimiboard70 [facility] [id number] Vitamin D, 25-Hydroxy 29.4 ng/mL (Abnormal) Range: 30.0-100.0 Comments: Vitamin D deficiency has been defined by the [place] of[place]icine and an Endocrine Society practice guideline as alevel of serum 25-OH vitamin D less than 20 ng/mL (1,2).The Endocrine Society went on to further define vitamin Dinsufficiency as a level between 21 and 29 ng/mL (2).1. IOM ([place] of Medicine). 2010. Dietary reference intakes for calcium and D. [place]: The National Academies Press.2. Mira MF, Rosette LOPEZ, Tommy SWAIN, et al. Evaluation, treatment, and prevention of vitamin D deficiency: an Endocrine Society clinical practice guideline. JCEM. 2010; 96(7):1911-30. :40 PARATHORMONE (57052) Comments: please fax to Dr. Austin- [phone]; PATIENT WAS FASTINGPERFORMED BY: LabCoEast Orange VA Medical CenterEcdqmj3541 [facility] [id number] PTH, Intact 22 pg/mL (Normal) Range: 15-65 :30 COLON BIOPSY (CHOOSE See Note (Normal) Comments: [facility] Uqfgzfjzrn7380 [facility] [place], [address] SITE) Comments: Patient: CLARENCE ALBERT : 1940 (77/F) Acct Num: [id number] Phys: Marcus Caldera Unit Num: [id number] Loc: [facility] Specimen: [id number] Received: 09/16/171528 Spec Type: C OLON BX [...] one cassette. / MARCY:dustin 09/19/17 TC:1 CPT: 04376 x2 HEADER OPERATION: Colonoscopy PRE-OP DIAGNOSIS: History of polyps TISSUE SUBMITTED: A Proximal sigmoid polyp, rule out adenoma, B Transversecolon, rule out adenoma MICROSCOPIC DESCRIPTION Slides are reviewed. M ICROSCOPIC DIAGNOSIS A. Proximal sigmoid polyp, biopsy: Fragments of tubular adenoma. B. Transverse colon polyp, biopsy: Fragments of tubular adenoma. SJ:dustin 09/20/17 Signed _ Nacho Ardon 09/20/17 <signature on file> 18-Vsi-68307:24 METABOLIC PANEL, COMPREHENSIVE Comments: PATIENT NOT FASTINGPERFORMED BY: LabCoEast Orange VA Medical CenterQoffxv8017 [facility] [id number] (27773) ALT (SGPT) 14 [iU]/L (Normal) Range: 0-32 [...] (Abnormal) Range: 65-99 :07 HgA1C , Office (74894) HgA1C , Office 7.2 % (Abnormal) Range: 4.6 - 7.1 :37 Clostridium difficile Toxin Comments: PATIENT NOT FASTINGPERFORMED BY: [employer] [facility] Cjdbnj5589 [place] [employer] [place] [id number] A+B, EIA (21181) C difficile Toxins A+B, EIA Negative (Normal) :37 LEUKOCYTE COUNT, FECAL (72204) Comments: PATIENT NOT FASTINGPERFORMED BY: [employer] [facility] Blvypi5822 [place] [facility] [id number] Result 1 NWBC (Normal) Comments: No white blood cells seen. White Blood Cells (WBC), Final report (Normal) Stool :37 OVA & PARASITE DIR SMEAR Comments: PATIENT NOT FASTINGPERFORMED BY: CardMunchrp Nhitnx0240 [place] [facility]ableNov[facility] [id number] (48218) Result 1 NOCP (Normal) Comments: No ova, cysts, or parasites seen. Ova + Parasite Exam Final report (Normal) Comments: These results were obtained using wet preparation(s) and trichromestained smear. This test does not include testing for Cryptosporidiumparvum, Cyclospora, or Microsporidia. :37 SETH CULTURE-STOOL (77806) Comments: PATIENT NOT FASTINGPERFORMED BY: CardMunch Pjxxnb0281 [facility] [id number] Information: SRC:ST SRC:ST E coli Shiga Toxin EIA Negative (Normal) Result 1 NCI (Normal) Comments: No Campylobacter species isolated. Campylobacter Culture Final report (Normal) Result 1 NSS (Normal) Comments: No Salmonella or Shigella recovered. Salmonella/Shigella Screen Final report (Normal) :06 Renal function Panel Comments: fax copy to Dr. Santana [phone]; A courtesy copy of this report has been sent [phone].PATIENT NOT FASTINGPERFORMED BY: [facility]6370 [facility] [id number] Information: NURSE DRAW (55140) Albumin 3.5 g/dL (Normal) Range: 3.5-4.8 Phosphorus [...] copy of this report has been sent [phone].PATIENT NOT FASTINGPERFORMED BY: [facility]ceptionE[facility] Center6370 [facility] [id number] :02 Range: 15-65 Vitamin D, 25-Hydroxy 34.7 ng/mL (Normal) Comments: A courtesy copy of this report has been sent [phone].PATIENT NOT FASTINGPERFORMED BY: [facility]6370 [facility] [id number] :02 Range: 30.0-100.0 Comments: Vitamin D deficiency has been defined by the [place] of[place]icine and an Endocrine Society practice guideline as alevel of serum 25-OH vitamin D less than 20 ng/mL (1,2).The Endocrine Society went on to further define vitamin Dinsufficiency as a level between 21 and 29 ng/mL (2).1. IOM ([place] of Medicine). 2010. Dietary reference intakes for calcium and D. [place]: The National Academies Press.2. Mira MF, Rosette NC, Tommy SWAIN, et al. Evaluation, treatment, and prevention of vitamin D deficiency: an Endocrine Society clinical practice guideline. JCEM. 2010; 96(7):1911-30. 2-Hvj-975771:02 MICROALBUMIN: CREATININE RATIO Comments: send results to Dr. Santana fax: [phone]; A courtesy copy of this report has been sent [phone].PATIENT NOT FASTINGPERFORMED BY: [facility]6370 [employer] [place] [id number] (85403) AND (04340) Alb/Creat Ratio 4191.2 {mg/g_creat} (Abnormal) Range: 0.0-30.0 Albumin, Urine 2380.6 ug/mL (Normal) Comments: Results confirmed ondilution. Creatinine, Urine 56.8 mg/dL (Normal) 7-Zey-843333:02 CBC, PLATELETS & MANUAL Comments: send results to Dr. Santana fax: [phone]; A courtesy copy of this report has been sent [phone].PATIENT NOT FASTINGPERFORMED BY: [facility]6370 [employer] [place] [id number] Information: VIT D25, PTH DIFF (11846) Immature Grans (Abs) 0.0 {x10E3/uL} (Normal) Range: [...] 3.77-5.28 WBC 5.4 {x10E3/uL} (Normal) Range: 3.4-10.8 8-Rop-645805:02 MAGNESIUM (29752) Comments: send results to Dr. Santana fax: [phone]; A courtesy copy of this report has been sent [phone].PATIENT NOT FASTINGPERFORMED BY: [facility]6370 [place] [facility] [id number] Magnesium, Serum 1.8 mg/dL (Normal) Range: 1.6-2.3 6-Zyt-234416:02 RENAL FUNCTION PANEL (42655) Comments: send results to Dr. Santana fax: [phone]; A courtesy copy of this report has been sent [phone].PATIENT NOT FASTINGPERFORMED BY: CardMunchEast Orange VA Medical CenterHjvjxg5950 [facility] [id number] Albumin, Serum 3.7 g/dL (Normal) Range: 3.5-4.8 [...] Glucose, Serum 119 mg/dL (Abnormal) Range: 65-99 1-Rqi-102516:07 LIPID PANEL (79007) Comments: PATIENT WAS FASTINGPERFORMED BY: LabCoEast Orange VA Medical CenterRmfyfh1234 [facility] [id number] LDL/HDL Ratio 1.4 {ratio} (Normal) Range: 0.0-3.2 Comments: LDL/HDL Ratio Men Women 1/2 Avg.Risk 1.0 1.5 Av g.Risk 3.6 3.2 2X Avg.Risk 6.2 5.0 3X Avg.Risk 8.0 6.1 LDL Cholesterol Calc 102 mg/dL (Abnormal) Range: 0-99 VLDL Cholesterol Cesar 17 mg/dL (Normal) Range: 5-40 HDL Cholesterol 75 mg/dL (Normal) Triglycerides 84 mg/dL (Normal) Range: 0-149 Cholesterol, Total 194 mg/dL (Normal) Range: 100-199 2-Ucy-019718:07 CBC W/AUTO DIFF WBC (86901) Comments: PATIENT WAS FASTINGPERFORMED BY: LabCoEndoSphere Noutom3340 [facility] [id number] Immature Grans (Abs) 0.0 {x10E3/uL} (Normal) Range: [...] 3.77-5.28 WBC 4.8 {x10E3/uL} (Normal) Range: 3.4-10.8 1-Kkw-185193:07 METABOLIC PANEL, COMPREHENSIVE Comments: PATIENT WAS FASTINGPERFORMED BY: LabEaton Rapids Medical Center6370 [facility] [id number] (13944) ALT (SGPT) 14 [iU]/L (Normal) Range: 0-32 [...] 8-27 Glucose 158 mg/dL (Abnormal) Range: 65-99 1-Vkf-455083:07 VITAMIN B-12 (CYANOCOBALAMIN) Comments: PATIENT WAS FASTINGPERFORMED BY: [employer] Diploo2295 [facility] [id number] (25479) Vitamin B12 771 pg/mL (Normal) Range: 232-1245 13-May-20170:00 CDIFF (Molecular) Comments: [facility] Sh[address]own[address]ju[address] [place], [address] CDIFF See Note (Normal) Comments: Cdiff-MolecularNormal Reference Range = Negative C. Diff DNA Negative- No toxigenic C. Diff DNA DetectedNAAT METHOD Testing was performed using nucleic acid amplification 05-May-20179:32 Rapid Flu (02740 x 2) Influenza A Ag Negative (Normal) :35 CBC with auto diff (26121) Comments: PATIENT WAS FASTINGPERFORMED BY: LabCoEndoSphere Ddumbd7495 [facility] [id number] Immature Grans (Abs) 0.0 {x10E3/uL} (Normal) Range: [...] 3.77-5.28 WBC 6.6 {x10E3/uL} (Normal) Range: 3.4-10.8 47-Hak-98956:35 METABOLIC PANEL, COMPREHENSIVE Comments: PATIENT WAS FASTINGPERFORMED BY: LabCoEast Orange VA Medical CenterPvbwmv4549 [facility] [id number] (74516) ALT (SGPT) 16 [iU]/L (Normal) Range: 0-32 [...] Glucose, Serum 145 mg/dL (Abnormal) Range: 65-99 65-Dmj-575605:51 HgA1C , Office (63631) HgA1C , Office 6.7 % (Normal) Range: 4.6 - 7.1 :50 CALCIFEDIOL (26922) Comments: A courtesy copy of this report has been sent [phone].PATIENT WAS FASTINGPERFORMED BY: Mimiboard70 [employer] [place] [id number] Vitamin D, 25-Hydroxy 40.7 ng/mL (Normal) Range: 30.0-100.0 Comments: Vitamin D deficiency has been defined by the [place] ofMartins Ferry Hospitalcine and an Endocrine Society practice guideline as alevel of serum 25-OH vitamin D less than 20 ng/mL (1,2).The Endocrine Society went on to further define vitamin Dinsufficiency as a level between 21 and 29 ng/mL (2).1. IOM ([place] of Medicine). 2010. Dietary reference intakes for calcium and D. [place]: The National Academies Press.2. Mira MF, Rosette NC, Tommy SWAIN, et al. Evaluation, treatment, and prevention of vitamin D deficiency: an Endocrine Society clinical practice guideline. JCEM. 2010; 96(7):1911-30. :50 PTH (PARATHORMONE) (99698) Comments: A courtesy copy of this report has been sent [phone].PATIENT WAS FASTINGPERFORMED BY: [employer] Gtckpi1714 [place] [facility] CenterAcunotein [place] [id number] PTH, Intact 20 pg/mL (Normal) Range: 15-65 9-Gkc-283011:50 MICROALBUMIN: CREATININE RATIO Comments: A courtesy copy of this report has been sent [phone].PATIENT WAS FASTINGPERFORMED BY: Mimiboard70 [employer] [facility] [id number] (31303) AND (53123) Microalb/Creat Ratio 4376.0 {mg/g_creat} (Abnormal) Range: 0.0-30.0 Microalbumin, Urine 3369.5 ug/mL (Normal) Comments: Results confirmed ondilution. Creatinine, Urine 77.0 mg/dL (Normal) 4-Vmg-396552:50 Renal function Panel Comments: A courtesy copy of this report has been sent [phone].PATIENT WAS FASTINGPERFORMED BY: Mimiboard70 [facility] [id number] Information: FX DR. SANTANA [phone] (51252) Albumin, Serum 3.8 g/dL (Normal) Range: 3.5-4.8 [...] 203 mg/dL (Abnormal) Range: 65-99 :50 Magnesium (46971) Comments: A courtesy copy of this report has been sent [phone].PATIENT WAS FASTINGPERFORMED BY: [employer] [facility] [id number] Magnesium, Serum 1.8 mg/dL (Normal) Range: 1.6-2.3 :53 CBC with auto diff (57586) Comments: A courtesy copy of this report has been sent [phone].PATIENT WAS FASTINGPERFORMED BY: [facility] Eudkqm8024 [facility] [id number] Immature Grans (Abs) 0.0 {x10E3/uL} (Normal) Range: [...] {x10E3/uL} (Normal) Range: 3.4-10.8 :53 LIPID PANEL (09046) Comments: A courtesy copy of this report has been sent [phone].PATIENT WAS FASTINGPERFORMED BY: LabCoEast Orange VA Medical CenterHlxdbs3909 [facility] [id number] LDL/HDL Ratio 1.2 {ratio_units} (Normal) Range: 0.0-3.2 Comments: LDL/HDL Ratio Men Women 1/2 Avg.Risk 1.0 1.5 Av g.Risk 3.6 3.2 2X Avg.Risk 6.2 5.0 3X Avg.Risk 8.0 6.1 LDL Cholesterol Calc 90 mg/dL (Normal) Range: 0-99 VLDL Cholesterol Cesar 13 mg/dL (Normal) Range: 5-40 HDL Cholesterol 76 mg/dL (Normal) Triglycerides 67 mg/dL (Normal) Range: 0-149 Cholesterol, Total 179 mg/dL (Normal) Range: 100-199 4-Zpn-967759:53 METABOLIC PANEL, COMPREHENSIVE Comments: A courtesy copy of this report has been sent [phone].PATIENT WAS FASTINGPERFORMED BY: TalkableEast Orange VA Medical CenterHqjjka0728 [facility] [id number] (81630) ALT (SGPT) 11 [iU]/L (Normal) Range: 0-32 [...] Glucose, Serum 205 mg/dL (Abnormal) Range: 65-99 85-Jty-763403:57 HgA1C , Office (62721) HgA1C , Office 7.1 % (Normal) Range: 4.6 - 7.1 :09 LIPID PANEL (87188) Comments: PATIENT WAS FASTINGPERFORMED BY: [facility]6370 [place] [facility] [id number] LDL/HDL Ratio 1.3 {ratio_units} (Normal) Range: 0.0-3.2 [...] PANEL, COMPREHENSIVE Comments: PATIENT WAS FASTINGPERFORMED BY: [facility]6370 [facility] [id number] (75205) ALT (SGPT) 12 [iU]/L (Normal) Range: 0-32 [...] (Abnormal) Range: 65-99 :50 HgA1C , Office (55738) HgA1C , Office 6.7 % (Normal) Range: 4.6 - 7.1 :25 Magnesium, Serum 1.9 mg/dL (Normal) Comments: PATIENT WAS FASTINGPERFORMED BY: [facility]6370 [facility]Former[facility] [id number] Range: 1.6-2.3 :25 Microalb/Creat Ratio, Randm Ur Comments: PATIENT WAS FASTINGPERFORMED BY: [facility]6370 [facility]Former[facility] [id number] Microalb/Creat Ratio 2652.0 {mg/g_creat} Range: 0.0-30.0 (Abnormal) Microalbumin, Urine 2482.3 ug/mL (Normal) Comments: Results confirmed ondilution. Creatinine, Urine 93.6 mg/dL (Normal) PTH, Intact 26 pg/mL (Normal) Comments: PATIENT WAS FASTINGPERFORMED BY: [facility]6370 [place] [facility] CenterAcunoteFormerly [facility] [id number] :25 Range: 15-65 :25 Renal Panel (10) Comments: PATIENT WAS FASTINGPERFORMED BY: [employer]in [place] [id number] Phosphorus, Serum 4.3 mg/dL (Normal) Range: 2.5-4.5 :25 Thyroxine (T4) Free, Direct, S Comments: PATIENT WAS FASTINGPERFORMED BY: [facility]6370 [facility] Hospitalblin [place] [id number] T4,Free(Direct) 1.08 ng/dL (Normal) Range: 0.82-1.77 : TSH 2.980 {uIU/mL} Comments: PATIENT WAS FASTINGPERFORMED BY: [facility] Nlrfka7034 [facility] Hospitalblin [place] [id number] 25 (Normal) Range: 0.450-4.500 : Vitamin D, 25-Hydroxy 37.1 ng/mL (Normal) Comments: PATIENT WAS FASTINGPERFORMED BY: [facility] Campuslin6370 [facility] HospitalDublin [place] [id number] 25 Range: 30.0-100.0 Comments: Vitamin D deficiency has been defined by the [place] ofMartins Ferry Hospitalcine and an Endocrine Society practice guideline as alevel of serum 25-OH vitamin D less than 20 ng/mL (1,2).The Endocrine Society went on to further define vitamin Dinsufficiency as a level between 21 and 29 ng/mL (2).1. IOM ([place] of Medicine). 2010. Dietary reference intakes for calcium and D. [place]: The National Academies Press.2. Mira MF, Rosette NC, Tommy SWAIN, et al. Evaluation, treatment, and prevention of vitamin D deficiency: an Endocrine Society clinical practice guideline. JCEM. 2010; 96(7):1911-30. :25 CBC W/AUTO DIFF WBC (91872) Comments: PATIENT WAS FASTINGPERFORMED BY: [facility] Tuzjyv5073 [facility] Hospitalblin [place] [id number] Immature Grans (Abs) 0.0 {x10E3/uL} (Normal) Range: [...] COMPREHENSIVE Comments: PATIENT WAS FASTINGPERFORMED BY: [facility]Co Ncerob3874 [facility] [id number]; non- emergent till apt (92311) ALT (SGPT) 10 [iU]/L (Normal) Range: 0-32 [...] mg/dL (Abnormal) Range: 65-99 :25 LIPID PANEL (45791) Comments: PATIENT WAS FASTINGPERFORMED BY: [employer] [id number] LDL/HDL Ratio 0.9 {ratio_units} (Normal) Range: 0.0-3.2 Comments: LDL/HDL Ratio Men Women 1/2 Avg.Risk 1.0 1.5 Av g.Risk 3.6 3.2 2X Avg.Risk 6.2 5.0 3X Avg.Risk 8.0 6.1 LDL Cholesterol Calc 65 mg/dL (Normal) Range: 0-99 VLDL Cholesterol Cesar 19 mg/dL (Normal) Range: 5-40 HDL Cholesterol 75 mg/dL (Normal) Triglycerides 93 mg/dL (Normal) Range: 0-149 Cholesterol, Total 159 mg/dL (Normal) Range: 100-199 59-Gwr-882297:54 HgA1C , Office (43380) HgA1C , Office 6.6 % (Normal) Range: 4.6 - 7.1 07-Umz-057021:1 Magnesium, Serum 2.1 mg/dL (Normal) Comments: PATIENT WAS FASTINGPERFORMED BY: [facility]6370 [facility]ooFormerly [facility] [id number] 2 Range: 1.6-2.3 21-Vdm-127160:12 Microalb/Creat Ratio, Randjosue Ur Comments: PATIENT WAS FASTINGPERFORMED BY: [facility] Ymwnrb6039 [place] [facility] [place] [id number] Microalb/Creat Ratio 1863.4 {mg/g_creat} (Abnormal) Range: 0.0-30.0 Microalbumin, Urine 1416.2 ug/mL (Normal) Comments: Results confirmed ondilution. Creatinine, Urine 76.0 mg/dL (Normal) 64-Wro-178045:12 Microscopic Examination Comments: PATIENT WAS FASTINGPERFORMED BY: [facility] Tdwsge2091 [place] [facility] [place] [id number] Bacteria None seen (Normal) Mucus Threads Present (Normal) Cast Type Hyaline casts (Normal) Casts Present {/lpf} (Abnormal) Epithelial Cells (non 0-10 {/hpf} Range: 0 - 10 renal) (Normal) RBC 3-10 {/hpf} Range: 0 - 2 (Abnormal) WBC 6-10 {/hpf} Range: 0 - 5 (Abnormal) PTH, Intact 36 pg/mL (Normal) Comments: PATIENT WAS FASTINGPERFORMED BY: [facility] Tsqqpr8473 [facility] [id number] 0:12 Range: 15-65 Vitamin D, 25-Hydroxy 42.9 ng/mL (Normal) Comments: PATIENT WAS FASTINGPERFORMED BY: [facility] Twxqud4276 [facility]in [place] [id number] 0:12 Range: 30.0-100.0 Comments: Vitamin D deficiency has been defined by the [place] ofMedicine and an Endocrine Society practice guideline as alevel of serum 25-OH vitamin D less than 20 ng/mL (1,2).The Endocrine Society went on to further define vitamin Dinsufficiency as a level between 21 and 29 ng/mL (2).1. IOM ([place] of Medicine). 2010. Dietary reference intakes for calcium and D. [place]: The National Academies Press.2. Mira MF, Rosette NC, Tommy SWAIN, et al. Evaluation, treatment, and prevention of vitamin D deficiency: an Endocrine Society clinical practice guideline. JCEM. 2010; 96(7):1911-30. 21-Cgd-902847:12 URINALYSIS, W/ MICRO (49197) Comments: PATIENT WAS FASTINGPERFORMED BY: CardMunch Hwepgl9342 [facility] [id number] Microscopic Examination See below: (Normal) Comments: Microscopic was indicated and was performed. Nitrite, Urine Negative (Normal) Urobilinogen,Semi-Qn 0.2 mg/dL (Normal) Range: 0.2-1.0 Bilirubin Negative (Normal) Occult Blood Negative (Normal) Ketones Negative (Normal) Glucose Negative (Normal) Protein 4+ (Abnormal) WBC Esterase Trace (Abnormal) Appearance Clear (Normal) Urine-Color Yellow (Normal) pH 6.0 (Normal) Range: 5.0-7.5 Specific [place] 1.015 (Normal) Range: 1.005-1.030 32-Mnh-703111:12 CBC W/AUTO DIFF WBC (64914) Comments: PATIENT WAS FASTINGPERFORMED BY: Posterbee6370 [facility] [id number] Immature Grans (Abs) 0.0 {x10E3/uL} (Normal) Range: [...] 3.77-5.28 WBC 6.2 {x10E3/uL} (Normal) Range: 3.4-10.8 39-Rnz-606469:12 METABOLIC PANEL, COMPREHENSIVE Comments: PATIENT WAS FASTINGPERFORMED BY: LabCoEast Orange VA Medical CenterFidkwb7016 [facility] [id number] (98826) ALT (SGPT) 14 [iU]/L (Normal) Range: 0-32 [...] Glucose, Serum 154 mg/dL (Abnormal) Range: 65-99 18-Nwn-195079:12 LIPID PANEL (83016) Comments: PATIENT WAS FASTINGPERFORMED BY: [facility]6370 [facility] [id number] LDL/HDL Ratio 0.7 {ratio_units} (Normal) Range: 0.0-3.2 Comments: LDL/HDL Ratio Men Women 1/2 Avg.Risk 1.0 1.5 Av g.Risk 3.6 3.2 2X Avg.Risk 6.2 5.0 3X Avg.Risk 8.0 6.1 LDL Cholesterol Calc 49 mg/dL (Normal) Range: 0-99 VLDL Cholesterol Cesar 14 mg/dL (Normal) Range: 5-40 HDL Cholesterol 75 mg/dL (Normal) Triglycerides 68 mg/dL (Normal) Range: 0-149 Cholesterol, Total 138 mg/dL (Normal) Range: 100-199 56-Xbq-457646:50 HgA1C , Office (04145) HgA1C , Office 6.7 % (Normal) Range: 4.6 - 7.1 73-Rtc-813521:36 VITAMIN B-12 (CYANOCOBALAMIN) Comments: PATIENT WAS FASTINGPERFORMED BY: [facility]6370 [facility] [id number] (99026) Vitamin B12 802 pg/mL (Normal) Range: 211-946 33-Zwa-091340:36 LIPID PANEL (86352) Comments: PATIENT WAS FASTINGPERFORMED BY: [facility]6370 [facility] [id number] LDL/HDL Ratio 0.8 {ratio_units} (Normal) Range: 0.0-3.2 [...] Cholesterol, Total 161 mg/dL (Normal) Range: 100-199 :36 LDH (LD) (LACTATE DEHYDROGENASE) Comments: PATIENT WAS FASTINGPERFORMED BY: [facility]6370 [facility] [id number] (23899) LDH 217 [iU]/L (Normal) Range: 119-226 :36 CBC W/AUTO DIFF WBC (83562) Comments: PATIENT WAS FASTINGPERFORMED BY: [facility]6370 [facility] [id number] Immature Grans (Abs) 0.0 {x10E3/uL} (Normal) Range: [...] 3.77-5.28 WBC 10.6 {x10E3/uL} (Normal) Range: 3.4-10.8 57-Ilr-149231:36 METABOLIC PANEL, COMPREHENSIVE Comments: PATIENT WAS FASTINGPERFORMED BY: LabCoEast Orange [facility] Medical CenterNsizyu9576 [facility] [id number] (64175) ALT (SGPT) 15 [iU]/L (Normal) Range: 0-32 [...] Glucose, Serum 137 mg/dL (Abnormal) Range: 65-99 60-Hdh-376465:36 TSH (11128) Comments: PATIENT WAS FASTINGPERFORMED BY: [facility]6370 [facility] [id number] TSH 0.560 {uIU/mL} (Normal) Range: 0.450-4.500 :02 Renal function Panel (33148) Comments: PATIENT WAS FASTINGPERFORMED BY: [facility]ception[facility]6370 [facility] [id number] Albumin, Serum 3.7 g/dL (Normal) Range: 3.5-4.8 [...] 137 mg/dL (Abnormal) Range: 65-99 :02 MAGNESIUM (02943) Comments: PATIENT WAS FASTINGPERFORMED BY: [facility]6370 [facility] [id number] Magnesium, Serum 2.2 mg/dL (Normal) Range: 1.6-2.3 :02 MICROALBUMIN: CREATININE RATIO Comments: PATIENT WAS FASTINGPERFORMED BY: [facility]6370 [facility] [id number] (55924) AND (29585) Microalb/Creat Ratio 2038.7 {mg/g_creat} (Abnormal) Range: 0.0-30.0 Microalbumin, Urine 1223.2 ug/mL (Normal) Comments: Results confirmed ondilution. Creatinine, Urine 60.0 mg/dL (Normal) :02 CBC WITH MANUAL DIFF Comments: PATIENT WAS FASTINGPERFORMED BY: LabCoEast [facility] CenterZmmnam8598 [facility] [id number] Information: [id number] CC:[id number] (79450) Immature Grans (Abs) 0.0 {x10E3/uL} (Normal) Range: [...] {x10E3/uL} (Normal) Range: 3.4-10.8 :02 HGB A1C (15493) Comments: PATIENT WAS FASTINGPERFORMED BY: [facility]6370 [facility] [id number] Hemoglobin A1c 6.4 % (Abnormal) Range: 4.8-5.6 Comments: . Pre-diabetes: 5.7 - 6.4 Diabetes: >6.4 Glycemic control for adults with diabetes: <7.0 :02 Lipid Panel (70654) Comments: PATIENT WAS FASTINGPERFORMED BY: [facility]6370 [facility] [id number] LDL/HDL Ratio 1.1 {ratio_units} (Normal) Range: 0.0-3.2 [...] Cholesterol, Total 160 mg/dL (Normal) Range: 100-199 46-Iwk-602078:03 HgA1C , Office (70843) HgA1C , Office 6.1 % (Normal) Range: 4.6 - 7.1 :24 CBC W/AUTO DIFF WBC Comments: PATIENT WAS FASTINGPERFORMED BY: [facility]6370 [facility] [id number] Information: [id number] (46350) Immature Grans (Abs) 0.0 {x10E3/uL} (Normal) Range: [...] CREATININE RATIO Comments: PATIENT WAS FASTINGPERFORMED BY: [employer] [id number] (86754) AND (29815) Microalb/Creat Ratio 1223.8 {mg/g_creat} (Abnormal) Range: 0.0-30.0 Microalbumin, Urine 1012.1 ug/mL (Abnormal) Range: 0.0-17.0 Comments: Results confirmed ondilution. Creatinine, Urine 82.7 mg/dL (Normal) Range: 15.0-278.0 :24 METABOLIC PANEL, COMPREHENSIVE Comments: PATIENT WAS FASTINGPERFORMED BY: Mimiboard70 WelzooFormer[facility] [id number] (94613) ALT (SGPT) 12 [iU]/L (Normal) Range: 0-32 [...] mg/dL (Abnormal) Range: 65-99 06-Jun-20158:24 LIPID PANEL (27589) Comments: PATIENT WAS FASTINGPERFORMED BY: LabCoEast [facility] Medical CenterGppbxe9217 [facility] [id number] LDL/HDL Ratio 1.1 {ratio_units} (Normal) Range: 0.0-3.2 [...] Range: 100-199 :30 CBC W/Diff, Automated Comments: [facility] [address] [place], [place], [address] Absolute Lymph 0.83 {X10_3/ul} (Normal) Range: 0.83-4.51 [...] (Normal) Range: 4.4-11.0 :30 Hemoglobin A1c Comments: [facility] [address] [place], [place], [address] HGB A1C 6.1 % (Normal) Range: 4.2-6.3 :30 Magnesium Comments: [facility] [address] [place], [place], [id number](517 MG 1.8 mg/dL (Normal) Range: 1.8-2.4 :30 Protein+Creatinine Ratio,Urine Comments: [facility] [address] [place], [address] PROT:CRE RATIO 2121 {mg/g_CRE} (Abnormal) Range: 0-200 PROTEIN,UR.RAN. 164.2 mg/dL (Abnormal) UR CREAT 77.40 mg/dL (Normal) :30 Renal Profile Comments: [facility] [address] [place], [place], [address] CO2 27.0 mmol/L (Normal) Range: 21.0-32.0 CL [...] 126 mg/dLsuggests DIABETES MELLITUS per A.D.A. criteria. 74-Vft-74412:00 24 HR UR Creatinine Clearance Comments: [facility] [address] [place], [place], [address] CREAT CLEARANCE 24 ml/min (Abnormal) Range: 100-200 URINE CREAT 20.6 mg/dL (Normal) EST GFR - AA 38 mL/min (Abnormal) Comments: GFR Calc EST GFR 31 mL/min (Abnormal) Comments: Non- GFR Calc SERUM CREAT 1.7 mg/dL (Abnormal) Range: 0.6-1.0 UR TOTAL VOLUME 2800 mL (Normal) UR COLLECT TIME 24.0 {HOURS} (Normal) 84-Uoh-13816:00 Protein, Urine 24HR Comments: [facility] [address] [place], [address] 24hr UR PROTEIN 1178.8 {mg/24HR} (Abnormal) URINE PROTEIN 42.1 mg/dL (Abnormal) UR TOTAL VOLUME 2800 mL (Normal) UR COLLECT TIME 24.0 {HOURS} (Normal) 2-Bas-352260:29 Metabolic Panel, Basic Comments: PATIENT NOT FASTINGPERFORMED BY: LE TOTE [facility] [id number] Information: [id number] (63159) Calcium, Serum 9.3 mg/dL (Normal) Range: 8.7-10.3 [...] Glucose, Serum 102 mg/dL (Abnormal) Range: 65-99 59-Eng-15198:39 Metabolic Panel, Basic Comments: tuesday; PATIENT NOT FASTINGPERFORMED BY: CardMunch Contraqer [facility] [id number] Information: [id number] (76894) Calcium, Serum 9.0 mg/dL (Normal) Range: 8.7-10.3 [...] (Abnormal) Range: 65-99 :32 HgA1C , Office (61273) HgA1C , Office 6.2 % (Normal) Range: 4.6 - 7.1 :31 Rapid Strep Test, Office (56544) Comments: neg Rapid Strep Test, Office Negative (Normal) :06 THROAT CULTURE (57049) Comments: PATIENT NOT FASTINGPERFORMED BY: [employer] LabDoctorAtWork.comrp Drfdkw[address] ShoppableDorothea Dix Hospitalin [place] [id number] Information: [id number] Result 1 RRF (Normal) Comments: Routine respiratory luis Upper Respiratory Culture Final report (Normal) :52 TSH (61763) Comments: PATIENT WAS FASTINGPERFORMED BY: Retail [employer] [facility] Bkqxly26[address] RoadDublin [place] [id number] TSH 2.190 {uIU/mL} (Normal) Range: 0.450-4.500 :52 Vitamin D Hydroxy (61650) Comments: PATIENT WAS FASTINGPERFORMED BY: [employer] [facility] Cwcjgf7[address]by RoadDublin [place] [id number] Vitamin D, 25-Hydroxy 43.8 ng/mL (Normal) Range: 30.0-100.0 Comments: Vitamin D deficiency has been defined by the [place] of[place]icine and an Endocrine Society practice guideline as alevel of serum 25-OH vitamin D less than 20 ng/mL (1,2).The Endocrine Society went on to further define vitamin Dinsufficiency as a level between 21 and 29 ng/mL (2).1. IOM ([place] of Medicine). 2010. Dietary reference intakes for calcium and D. [place]: The National Academies Press.2. Mira MF, Rosette LOPEZ, Tommy SWAIN, et al. Evaluation, treatment, and prevention of vitamin D deficiency: an Endocrine Society clinical practice guideline. JCEM. 2010; 96(7):1911-30. :52 LIPID PANEL (58993) Comments: PATIENT WAS FASTINGPERFORMED BY: LabCoEndoSphere Hyydbb4924 [facility] [id number] LDL/HDL Ratio 1.3 {ratio_units} (Normal) Range: 0.0-3.2 [...] auto diff Comments: PATIENT WAS FASTINGPERFORMED BY: LabCoEast Orange VA Medical CenterYajdbg2842 [facility] [id number] Information: [id number], [id number] (92642) Immature Grans (Abs) 0.0 {x10E3/uL} (Normal) Range: [...] PANEL, COMPREHENSIVE Comments: PATIENT WAS FASTINGPERFORMED BY: LabCoEast Orange [facility] Medical CenterPlzkbc0631 [facility] [id number] (92620) ALT (SGPT) 19 [iU]/L (Normal) Range: 0-32 [...] (Abnormal) Range: 65-99 :08 HgA1C , Office (03315) HgA1C , Office 6.4 % (Normal) Range: 4.6 - 7.1 :00 Creatinine Clearance Comments: PATIENT NOT FASTINGPERFORMED BY: Mimiboard70 [facility] CenterAcunoteFormerly [facility] [id number] Information: [id number] S TART Creatinine Clearance 33 mL/min (Abnormal) [...] Qn, 24-Hr Comments: PATIENT NOT FASTINGPERFORMED BY: [employer]6370 [facility] [id number] Urine Prot,24hr calculated 1309.8 {mg/24_hr} (Abnormal) Range: 30.0-150.0 Protein,Total,Urine 70.8 mg/dL (Abnormal) Range: 0.0-15.0 :01 CBC W/Diff, Automated Comments: Test performed at:[facility] [address] [place] [address] Absolute Neut 3.1 {X10_3/uL} (Normal) [...] Range: 4.4-11.0 :01 Magnesium Comments: Test performed at:[facility] [address] [place] [address] MG 2.0 mg/dL (Normal) Range: 1.8-2.4 :01 Protein+Creatinine Ratio,Urine Comments: Test performed at:[facility] [address] [place] [address] PROT:CRE RATIO 2232 {mg/g_CRE} (Abnormal) Range: 0-200 PROTEIN,UR.RAN. 160.3 mg/dL (Abnormal) UR CREAT 71.8 mg/dL (Normal) :01 Renal Profile Comments: Test performed at:[facility] [address]ff[address]wo[address] [place] [address] CO2 32.0 mmol/L (Normal) Range: [...] mg/dL (Normal) Range: 70-110 :08 LIPID PANEL (14794) Comments: PATIENT WAS FASTINGPERFORMED BY: Mimiboard70 [facility] [id number] LDL/HDL Ratio 1.0 {ratio_units} (Normal) Range: 0.0-3.2 [...] METABOLIC PANEL, Comments: PATIENT WAS FASTINGPERFORMED BY: LE TOTE [facility] [id number] Information: [id number] COMPREHENSIVE (58230) ALT (SGPT) 29 [iU]/L (Normal) Range: 0-32 [...] (Abnormal) Range: 65-99 :59 HgA1C , Office (76921) HgA1C , Office 6.5 % (Normal) Range: 4.6 - 7.1 :54 CBC W/AUTO DIFF WBC Comments: PATIENT WAS FASTINGPERFORMED BY: EVE [facility] Ftyjfe7948 [facility] [id number] Information: [id number] (30555) Immature Grans (Abs) 0.0 {x10E3/uL} (Normal) Range: [...] 3.77-5.28 WBC 4.2 {x10E3/uL} (Normal) Range: 3.4-10.8 05-Bgo-78236:54 METABOLIC PANEL, COMPREHENSIVE Comments: PATIENT WAS FASTINGPERFORMED BY: LabCoEast Orange VA Medical CenterLhoryg2213 [facility] [id number]; non- emergent till apt (66165) ALT (SGPT) 13 [iU]/L (Normal) Range: 0-32 [...] mg/dL (Abnormal) Range: 65-99 :54 LIPID PANEL (75840) Comments: PATIENT WAS FASTINGPERFORMED BY: LabCoEast [facility] Medical CenterJcrwyi3216 [facility] [id number] LDL/HDL Ratio 1.1 {ratio_units} (Normal) Range: 0.0-3.2 [...] (Normal) Range: 100-199 :29 HgA1C , Office (74862) HgA1C , Office 6.6 % (Normal) Range: 4.6 - 7.1 :12 CBC W/Diff, Automated Comments: Test performed at:[facility] [address] [place] [address] ; handled by Dr. Santana Absolute Lymph [...] Range: 4.4-11.0 :12 Magnesium Comments: Test performed at:[facility] [address] [place] [address] MG 2.0 mg/dL (Normal) Range: 1.8-2.4 :12 Microalb:Creat Ratio,Random UR Comments: Test performed at:[facility] [address] [place], [place] [address] ; Dr. Angelo LING:CREAT 1483.0 {mg/g_CRE} (Abnormal) MICROALBUMIN,UR 918.0 mg/L (Normal) UR CREAT 61.9 mg/dL (Normal) 68-Cof-47210:12 Renal Profile Comments: Test performed at:[facility] [address]ls[address] [place] [address] CO2 29.0 mmol/L (Normal) Range: 21.0-32.0 CL [...] 126 mg/dLsuggests DIABETES MELLITUS per A.D.A. criteria. 91-Wcz-411210:20 LIPID PANEL (64640) Comments: PATIENT WAS FASTINGPERFORMED BY: [facility]6370 [facility] [id number] LDL/HDL Ratio 1.0 {ratio_units} (Normal) Range: 0.0-3.2 [...] Cholesterol, Total 151 mg/dL (Normal) Range: 100-199 18-Dac-088687:20 METABOLIC PANEL, Comments: PATIENT WAS FASTINGPERFORMED BY: Mimiboard70 [facility] [id number] Information: [id number] COMPREHENSIVE (25722) ALT (SGPT) 16 [iU]/L (Normal) Range: 0-32 [...] Glucose, Serum 148 mg/dL (Abnormal) Range: 65-99 88-Szz-398085:21 CREATININE CLEARANCE Comments: PATIENT WAS FASTINGPERFORMED BY: TalkableEast Orange VA Medical CenterCexuyx2829 [facility] [id number] Information: [id number] START 04/02/14@9AM FINISH 04/03/14 6:00 AM (05262) Creatinine Clearance 42 mL/min (Abnormal) Range: 88-128 Comments: The above range is based on 1.73 square meter average body surfacearea. Creatinine, Ur 24hr 812.3 {mg/24_hr} (Normal) Range: 800.0-1800.0 Creatinine, Urine 28.5 mg/dL (Normal) Range: 15.0-278.0 eGFR If Africn Am 45 mL/min/1.73 (Abnormal) eGFR If NonAfricn Am 39 mL/min/1.73 (Abnormal) Creatinine, Serum 1.33 mg/dL (Abnormal) Range: 0.57-1.00 :21 Total Protein,24 Hour Urine Comments: PATIENT WAS FASTINGPERFORMED BY: CV[facility] GroupNovant [facility] [id number] (91466) Prot,24hr calculated 1559.0 {mg/24_hr} (Abnormal) Range: 30.0-150.0 Protein,Total,Urine 54.7 mg/dL (Abnormal) Range: 0.0-15.0 :57 LIPID PANEL (49088) Comments: PATIENT WAS FASTINGPERFORMED BY: CVTech GroupNov[facility] [id number] LDL/HDL Ratio 1.1 {ratio_units} (Normal) Range: 0.0-3.2 [...] MANUAL DIFF Comments: PATIENT WAS FASTINGPERFORMED BY: [facility]6370 [facility] [id number] Information: [id number] (07854) Immature Grans (Abs) 0.0 {x10E3/uL} (Normal) Range: [...] PANEL, COMPREHENSIVE Comments: PATIENT WAS FASTINGPERFORMED BY: [facility]6370 [facility] [id number] (23141) ALT (SGPT) 10 [iU]/L (Normal) Range: 0-32 [...] Result Units: mg/dL AdultPerformed at: - [facility] [address] [id number] Director: Yousuf Bernardo PhD, Phone: [phone] :[phone] C4 37 (Abnormal) Range: 9-36 0 [...] 4.2-5.4 WBC 4.6 K/mm3 (Normal) Range: 4.4-11.0 90-Hpe-53391:00 CMP GAP 3 (Abnormal) Range: 5-15 CO2 [...] 75.6 mg/dL (Abnormal) CREU 49.3 mg/dL (Normal) :21 CBC WITH MANUAL DIFF Comments: PATIENT WAS FASTINGPERFORMED BY: LabCoEast Orange [facility] Medical CenterChiqvo7189 [facility] [id number] Information: [id number] (99116) Immature Grans (Abs) 0.0 {x10E3/uL} (Normal) Range: [...] 3.77-5.28 WBC 4.5 {x10E3/uL} (Normal) Range: 3.4-10.8 36-Uou-12994:21 METABOLIC PANEL, COMPREHENSIVE Comments: PATIENT WAS FASTINGPERFORMED BY: LabE[facility] Center6370 [facility] [id number] (93040) ALT (SGPT) 16 [iU]/L (Normal) Range: 0-32 [...] Glucose, Serum 132 mg/dL (Abnormal) Range: 65-99 09-Mdr-789265:53 CREATININE CLEARANCE Comments: PATIENT NOT FASTINGPERFORMED BY: EVE Talkable Zslkim5914 [facility] [id number] Information: [id number] START 10/30/13@8AM F INISH 10/31/13@8AM 2650ML (63103) Creatinine Clearance 44 mL/min (Abnormal) Range: 88-128 Comments: The above range is based on 1.73 square meter average body surfacearea. Creatinine, Ur 24hr 877.2 {mg/24_hr} (Normal) Range: 800.0-1800.0 Creatinine, Urine 33.1 mg/dL (Normal) Range: 15.0-278.0 eGFR If Africn Am 44 mL/min/1.73 (Abnormal) eGFR If NonAfricn Am 38 mL/min/1.73 (Abnormal) Creatinine, Serum 1.37 mg/dL (Abnormal) Range: 0.57-1.00 99-Mgj-974782:53 Total Protein,24 Hour Urine Comments: PATIENT NOT FASTINGPERFORMED BY: EVE [employer] Qiwesp7385 [facility] [id number] (73419) Prot,24hr calculated 3458.3 {mg/24_hr} (Abnormal) Range: 30.0-150.0 Protein,Total,Urine 130.5 mg/dL (Abnormal) Range: 0.0-15.0 30-Dxy-888960:31 HgA1C , Office (37306) HgA1C , Office 6.4 % (Normal) Range: 4.6 - 7.1 62-Uyj-912734:27 Microscopic Examination Comments: PATIENT WAS FASTINGPERFORMED BY: EVE Talkable Okkoau5135 [facility] [id number] Bacteria Few (Normal) Mucus Threads Present (Normal) Epithelial Cells (non renal) 0-10 {/hpf} (Normal) Range: 0 - 10 RBC 3-10 {/hpf} (Abnormal) Range: 0 - 2 WBC 6-10 {/hpf} (Abnormal) Range: 0 - 5 58-Xik-01565:32 LIPID PANEL (37518) Comments: PATIENT WAS FASTINGPERFORMED BY: LabE[facility] Center6370 [facility] [id number] LDL/HDL Ratio 1.0 {ratio_units} (Normal) Range: 0.0-3.2 [...] CREATININE RATIO Comments: PATIENT WAS FASTINGPERFORMED BY: ShopperceptionEaton Rapids Medical Center6370 [facility] [id number] (61059) AND (78633) Microalb/Creat Ratio 1998.9 {mg/g_creat} (Abnormal) Range: 0.0-30.0 Creatinine, Urine 73.4 mg/dL (Normal) Range: 15.0-278.0 Microalbumin, Urine 1467.2 ug/mL (Abnormal) Range: 0.0-17.0 :32 URINALYSIS, W/ MICRO (70273) Comments: PATIENT WAS FASTINGPERFORMED BY: [facility]ceptionE[facility] Center6370 [facility] [id number] Microscopic Examination See below: (Normal) Comments: Microscopic was indicated and was performed. Nitrite, Urine Negative (Normal) Urobilinogen,Semi-Qn 0.2 mg/dL (Normal) Range: 0.0-1.9 Bilirubin Negative (Normal) Occult Blood Trace (Abnormal) Ketones Negative (Normal) Glucose Negative (Normal) Protein 3+ (Abnormal) WBC Esterase Trace (Abnormal) Appearance Clear (Normal) Urine-Color Yellow (Normal) pH 6.5 (Normal) Range: 5.0-7.5 Specific Blackwell 1.015 (Normal) Range: 1.005-1.030 :32 CBC WITH MANUAL DIFF Comments: PATIENT WAS FASTINGPERFORMED BY: [facility]6370 [facility] [id number] Information: [id number] (09114) Immature Grans (Abs) 0.0 {x10E3/uL} (Normal) Range: [...] PANEL, COMPREHENSIVE Comments: PATIENT WAS FASTINGPERFORMED BY: LabCoEast [facility] Medical CenterXocvat5180 [facility] [id number] (75761) ALT (SGPT) 16 [iU]/L (Normal) Range: 0-32 [...] Glucose, Serum 135 mg/dL (Abnormal) Range: 65-99 62-Uku-40356:32 VITAMIN B-12 (CYANOCOBALAMIN) Comments: PATIENT WAS FASTINGPERFORMED BY: Talkable Qnsxpa9564 [facility] [id number] (77622) Vitamin B12 >1999 pg/mL (Abnormal) Range: 211-946 76-Pnj-148070:01 HgA1C , Office (87702) HgA1C , Office 6.4 % (Normal) Range: 4.6 - 7.1 :37 METABOLIC PANEL, COMPREHENSIVE Comments: PATIENT WAS FASTINGPERFORMED BY: Talkable Aiijvf7222 [facility] [id number] (32956) ALT (SGPT) 12 [iU]/L (Normal) Range: 0-32 [...] (Abnormal) Range: 65-99 :37 Vitamin D Hydroxy (03316) Comments: PATIENT WAS FASTINGPERFORMED BY: LabE[facility] Center6370 [facility] [id number] Vitamin D, 25-Hydroxy 47.4 ng/mL (Normal) Range: 30.0-100.0 Comments: Vitamin D deficiency has been defined by the [place] of[place]icine and an Endocrine Society practice guideline as alevel of serum 25-OH vitamin D less than 20 ng/mL (1,2).The Endocrine Society went on to further define vitamin Dinsufficiency as a level between 21 and 29 ng/mL (2).1. IOM ([place] of Medicine). 2010. Dietary reference intakes for calcium and D. [place]: The National Academies Press.2. Mira MF, Rosette [place], Tommy SWAIN, et al. Evaluation, treatment, and prevention of vitamin D deficiency: an Endocrine Society clinical practice guideline. JCEM. 2010; 96(7):1911-30. :37 LIPID PANEL (93568) Comments: PATIENT WAS FASTINGPERFORMED BY: TalkableEast Orange VA Medical CenterDbhbez1202 [facility] [id number] LDL/HDL Ratio 1.2 {ratio_units} (Normal) Range: 0.0-3.2 [...] MANUAL DIFF Comments: PATIENT WAS FASTINGPERFORMED BY: [facility] Center6370 [facility] [id number] Information: [id number] (81118) Immature Grans (Abs) 0.0 {x10E3/uL} (Normal) Range: [...] Qn, 24-Hr Comments: PATIENT NOT FASTINGPERFORMED BY: ShopperceptionTina [place] 9812670 [facility] [id number] Information: ADD [id number] AND DRAW FEE 99 6660 VOLUME 2600 164LBS 5' '3 Urine Prot,24hr calculated 920.4 {mg/24_hr} Range: 30.0-150.0 (Abnormal) Protein,Total,Urine 35.4 mg/dL Range: 0.0-15.0 (Abnormal) : Written Authorization WAR (Normal) Comments: PATIENT NOT FASTINGPERFORMED BY: [facility]6370 [facility] [id number] Comments: Written Authorization Received.Authorization received from Chiqui BRICEÑO LPN [id number] by Marleen Sharma :52 Metabolic Panel, Basic Comments: PATIENT NOT FASTINGPERFORMED BY: [facility]6370 [facility] [id number] Information: ADD [id number] AND DRAW FEE 99 6660 VOLUME 2600 164LBS 5' '3 (32588) Calcium, Serum 9.7 mg/dL (Normal) Range: 8.6-10.2 [...] mg/dL (Abnormal) Range: 65-99 :52 CREATININE CLEARANCE (98190) Comments: PATIENT NOT FASTINGPERFORMED BY: LE TOTE [facility] [id number] Creatinine Clearance 46 mL/min (Abnormal) Range: 88-128 Comments: The above range is based on 1.73 square meter average body surfacearea. Creatinine, Ur 24hr 899.6 {mg/24_hr} (Normal) Range: 800.0-1800.0 Creatinine, Urine 34.6 mg/dL (Normal) Range: 15.0-278.0 :52 24 hour urine for Protein Comments: PATIENT NOT FASTINGPERFORMED BY: LE TOTE [facility] [id number] (98290) Microalb/Creat Ratio 695.4 {mg/g_creat} (Abnormal) Range: 0.0-30.0 Microalbumin, Urine 240.6 ug/mL (Abnormal) Range: 0.0-17.0 :13 HgA1C , Office (53750) HgA1C , Office 6.3 % (Normal) Range: 4.6 - 7.1 :01 Blood Glucose , Office (01054) Blood Glucose , Office 162 (Normal) :02 Microscopic Examination Comments: PATIENT NOT FASTINGPERFORMED BY: CardMunch Firvcv0606 [facility] [id number] Bacteria Few (Normal) Mucus Threads Present (Normal) Epithelial Cells (non renal) 0-10 {/hpf} (Normal) Range: 0 - 10 RBC 0-3 {/hpf} (Normal) Range: 0 - 3 WBC 0-5 {/hpf} (Normal) Range: 0 - 5 98-Ksl-706355:43 ABDOMEN/PELVIS WITH CONTRAST Radiology Report See Note [...] Hebert M.D.October 19, 2012 at 2:42:14 PM [id number] Signed GP/GP If you are the referring physician and would like to consult [facility] theradiologist who provided this interpretation, please contact Yasmany Pond at [phone]. If this radiologist is unavailable, youwill be directed to another radiologist to assist. If y ou are a patient with a question regarding this report, pleasecontactyour referring physician directly. Professional Interpretation Provided By: [employer], Phone , These documents contain legally protected [...] destructionofthese documents. Dictated on 10/19/12 1442 by Jody Hebert MDranscribed on 10/19/12 1443 by ITS IMPORTSign by Misael Hebert MD on 10/19/12 1444 Sign by: Misael Hebetr MD 52-Vfd-503164:59 TSH (02868) Comments: PATIENT WAS FASTINGPERFORMED BY: [employer] [facility] Lujoja7294 [facility] [id number] TSH 1.230 {uIU/mL} (Normal) Range: 0.450-4.500 47-Qrq-828260:59 LIPID PANEL (12340) Comments: PATIENT WAS FASTINGPERFORMED BY: Retail Rocket LabCoProvidence Surgery CentersOdvlmy4239 [facility] [id number] LDL/HDL Ratio 0.5 {ratio_units} (Normal) Range: 0.0-3.2 LDL Cholesterol Calc 47 mg/dL (Normal) Range: 0-99 Cholesterol, Total 149 mg/dL (Normal) Range: 100-199 HDL Cholesterol 91 mg/dL (Normal) Comments: According to ATP-III Guidelines, HDL-C >59 mg/dL is considered anegative risk factor for CHD. Triglycerides 57 mg/dL (Normal) Range: 0-149 VLDL Cholesterol Cesar 11 mg/dL (Normal) Range: 5-40 52-Kpw-701785:02 URINALYSIS, W/ MICRO Comments: PATIENT NOT FASTINGPERFORMED BY: CardMunchJulie Ville [id number] [facility] [facility] [id number] Information: [id number] ([id number]) Microscopic Examination See below: (Normal) Nitrite, Urine Negative (Normal) Bilirubin Negative (Normal) Urobilinogen,Semi-Qn 0.2 mg/dL (Normal) Range: 0.0-1.9 Occult Blood Negative (Normal) Ketones Negative (Normal) Glucose Negative (Normal) Protein 3+ (Abnormal) WBC Esterase Negative (Normal) Appearance Clear (Normal) Urine-Color Yellow (Normal) pH 5.5 (Normal) Range: 5.0-7.5 Specific Blackwell 1.015 (Normal) Range: 1.005-1.030 09-Qjp-548479:59 CBC WITH MANUAL DIFF Comments: PATIENT WAS FASTINGPERFORMED BY: CardMunchEast Orange VA Medical CenterCwrbkb8483 [facility] [id number] Information: [id number] (16439) Immature Grans (Abs) 0.0 {x10E3/uL} (Normal) Range: [...] 3.77-5.28 WBC 4.8 {x10E3/uL} (Normal) Range: 3.4-10.8 57-Wui-559367:59 METABOLIC PANEL, COMPREHENSIVE Comments: PATIENT WAS FASTINGPERFORMED BY: [facility]6370 [facility] [id number] ([id number]) ALT (SGPT) 14 [iU]/L (Normal) Range: 0-32 [...] Glucose, Serum 104 mg/dL (Abnormal) Range: 65-99 1-Vmz-423338:37 HgA1C , Office (46953) HgA1C , Office 6.0 % (Normal) Range: 4.6 - 7.1 5-Kja-821720:31 CRE CREAT 1.3 mg/dL (Abnormal) Range: 0.6-1.0 [...] Galan M.D.August 09, 2012 at 2:38:03 PM [id number] Signed PV/PV If you are the referring physician and would like to consult with theradiologist who provided this interpretation, please contact Donna Burnett M.D. at [phone]. If this radiologist is unavailable, youwillbe directed to another radiologist to assist. If you are a patient with a question regarding this report, pleasecontactyour referring physician evelyne cowan. Professional Interpretation Provided By: [employer], Phone , These documents contain legally protected [...] Martin MD on 08/09/12 1441 Sign by: Mario MANNDonna 13-Epy-596335:31 CBC with manual diff Comments: PATIENT NOT FASTINGPERFORMED BY: EVE [facility] Atdeua4286 [facility] [id number] Information: [id number] (97629) Immature Grans (Abs) 0.0 {x10E3/uL} (Normal) Range: [...] 3.77-5.28 WBC 3.2 {x10E3/uL} (Abnormal) Range: 4.0-10.5 41-Yad-669247:31 Metabolic Panel, Comprehensive Comments: PATIENT NOT FASTINGPERFORMED BY: EVE LabCoEast Orange [facility] Medical CenterLnrufb9731 [facility] [id number] (13467) ALT (SGPT) 19 [iU]/L (Normal) Range: 0-32 [...] Glucose, Serum 137 mg/dL (Abnormal) Range: 65-99 04-Oct-20128:31 LIPID PANEL (80800) Comments: PATIENT WAS FASTINGPERFORMED BY: LabCoEast Orange VA Medical CenterBpvlbx8790 [facility] [id number] LDL/HDL Ratio 0.8 {ratio_units} (Normal) Range: 0.0-3.2 [...] DIFF Comments: PATIENT WAS FASTINGPERFORMED BY: EVE LabCoEast Orange [facility] Medical CenterXbslkb5463 [facility] [id number] Information: [id number] (55381) Immature Grans (Abs) 0.0 {x10E3/uL} (Normal) Range: [...] COMPREHENSIVE Comments: PATIENT WAS FASTINGPERFORMED BY: EVE LabCoEast Orange [facility] Medical CenterUlcomi3953 [facility] [id number] (71997) ALT (SGPT) 22 [iU]/L (Normal) Range: 0-32 [...] (Abnormal) Range: 65-99 :45 HgA1C , Office (57423) HgA1C , Office 6.1 % (Normal) Range: 4.6 - 7.1 :16 CRE CREAT 1.1 mg/dL (Abnormal) Range: 0.6-1.0 [...] Galan M.D.February 02, 2012 at 5:10:18 PM [id number] Signed PV/PV If you are the referring physician and w ould like to consult with theradiologist who provided this interpretation, please contact Donna Burnett M.D. at [phone]. If this radiologist is unavailable, youwillbe directed to another radiol ogist to assist. If you are a patient with a question regarding this report, pleasecontactyour referring physician directly. Professional Interpretation Provided By: [employer], Phone ,Fa x [phone] These documents contain legally protected and confidential [...] 02/02/121713 S ign by: Donna Martin MD 02-Uab-922717:16 DEXA BONE DENSITY STUDY (HP) Radiology Report [...] Coronel M.D.January 20, 2012 at 2:43:46 PM [phone] Signed KERA/KERA If you ar e the [...] 01/20/12 1447 Sign by: David Coronel MD 14-Nho-807742:15 BILAT SCRN DIGITAL & CAD Radiology Report [...] Coronel M.D.January 20, 2012 at 1:20:11 PM [phone] Signed KERA/KERA If you are the referring physician and would like to consult with theradiologist who provided this interpretation, please contact Yasmany Parnell at . If this radiologist is unavailable,youwill be directed to another radiologist to assist. If you are a patient with a question regarding this report, pleasecontactyour referring physician directly. Professional Interpretation Provided By: [employer], Phone , These documents contain legally protected [...] 01/20/12 1324 Sign by: David Coronel MD 3-Ppu-867256:56 PELVIC (NON ) Radiology Report See Note [...] Vuong M.D.January 10, 2012 at 8:39:09 PM [id number] Signed JL/JL If you are the referring physician and would like to consult with theradiologist who provided this inte rpretation, please contact Radha Vuong M.D. at [phone]. If this radiologist is unavailable, you will bedirected to another radiologist to assist. If you are a patient with a question regarding this r eport, pleasecontactyour referring physician directly. Professional Interpretation Provided By: [employer], Phone , PROCEDURE: ULTRASOUND OF THE FEMALE [...] Vuong M.D.January 10, 2012 at 8:40:07 PM [id number] Signed JL/JOHNNY If you are the referring physician and would like to consult with theradiologist who provided this interpretation, please contact Radha Vuong M.D. at [phone]. If this radiologist is unavailable, you will bedirected to another radiologist to assist. If you are a patient with a question regarding this report, pleasecontactyour referring ysician directly. Professional Interpretation Provided By: [employer], Phone , These documents contain legally protected [...] Dictated on 01/10/12 1309 by Nahum VUONG MDsharp [facility] ribed on 01/11/12 1113 by ITS IMPORTSign by RADHA VUONG MD on 01/11/12 1114 Sign by: RADHA VUONG MD 00-Irn-57328:35 MICROALBUMIN: CREATININE RATIO Comments: PATIENT WAS FASTINGPERFORMED BY: LabCoEast Orange [facility] Medical CenterXgsftt5676 [facility] [id number] (08536) AND (91041) Microalb/Creat Ratio 829.4 {mg/g_creat} (Abnormal) Range: 0.0-30.0 Microalbumin, Urine 437.1 ug/mL (Abnormal) Range: 0.0-17.0 Creatinine, Urine 52.7 mg/dL (Normal) Range: 15.0-278.0 :35 CBC WITH MANUAL DIFF Comments: PATIENT WAS FASTINGPERFORMED BY: TalkableEast Orange VA Medical CenterIbdvsf3303 [facility] [id number] Information: [id number] (65328) Immature Grans (Abs) 0.0 {x10E3/uL} (Normal) Range: [...] PANEL, COMPREHENSIVE Comments: PATIENT WAS FASTINGPERFORMED BY: TalkableEast Orange VA Medical CenterHklydr6229 [facility] [id number] (50639) ALT (SGPT) 15 [iU]/L (Normal) Range: 0-32 [...] Glucose, Serum 125 mg/dL (Abnormal) Range: 65-99 44-Pou-13203:35 LIPID PANEL (41311) Comments: PATIENT WAS FASTINGPERFORMED BY: [facility] Egidor7533 [facility] [id number] LDL/HDL Ratio 0.9 {ratio_units} (Normal) Range: 0.0-3.2 LDL Cholesterol Calc 72 mg/dL (Normal) Range: 0-99 HDL Cholesterol 83 mg/dL (Normal) Comments: According to ATP-III Guidelines, HDL-C >59 mg/dL is considered anegative risk factor for CHD. VLDL Cholesterol Cesar 18 mg/dL (Normal) Range: 5-40 Triglycerides 90 mg/dL (Normal) Range: 0-149 Cholesterol, Total 173 mg/dL (Normal) Range: 100-199 :15 HgA1C , Office (98593) HgA1C , Office 6.2 % (Normal) Range: 4.6 - 7.1 :30 CBC WITH MANUAL DIFF Comments: PATIENT WAS FASTINGPERFORMED BY: LabCoEast Orange VA Medical CenterDyetci2066 [facility] [id number] Information: [id number] (65259) Immature Grans (Abs) 0.0 {x10E3/uL} (Normal) Range: [...] COMPREHENSIVE Comments: PATIENT WAS FASTINGPERFORMED BY: EVE Leaders202070 [facility] [id number] (75956) ALT (SGPT) 19 [iU]/L (Normal) Range: 0-40 [...] mg/dL (Abnormal) Range: 65-99 :30 LIPID PANEL (97959) Comments: PATIENT WAS FASTINGPERFORMED BY: Posterbee6370 [facility] [id number] LDL/HDL Ratio 0.9 {ratio_units} (Normal) Range: 0.0-3.2 [...] 100-199 Comments: Please note reference interval change 74-Aue-073909:48 Rapid Flu (12917 x 2) Influenza A Ag negative (Normal) 05-Nov-20119:20 ABDOMEN W/WO IV CONTRAST Radiology Report See [...] redmond M.D.November 05, 2011 at 3:25:08 PM [id number] Signed GP/GP If you are the referring physician and would like to consult with theradiologist who provided this interpretation, please contact Yasmany Pond at [phone]. If this radiologist is unavailable, youwill be directed to another radiologist to assist. If you are a patient with a question regarding this report, ple asecontactyour referring physician directly. Professional Interpretation Provided By: [employer], Phone , These documents contain legally protected [...] destructionofthese documents. Dictated on 11/05/11 0939 by Linda Hebert MDscribed on 11/05/11 1551 by ITS IMPORTSign by Misael Hebert MD on 11/05/11 155 Sign by: Misael Hebert MD 05-Nov-20110:00 PELVIS [...] redmond M.D.November 05, 2011 at 3:25:08 PM [id number] Signed GP/GP If you are the referring physician and would like to consult with theradiologist who provided this interpretation, please contact Yasmany Pond at [phone]. If this radiologist is unavailable, youwill be directed to another radiologist to assist. If you are a patient with a question regarding this report, ple asecontactyour referring physician directly. Professional Interpretation Provided By: [employer], Phone , These documents contain legally protected [...] on 11/05/11 0939 by Singh MANN,Jodyranscribed on 11/05/11 1551 by ITS IMPORTSign by Misael Hebert MD on 11/05/11 155 Sign by: Misael Hebert MD 35-Bqc-011305:20 METABOLIC PANEL, Comments: PATIENT WAS FASTINGPERFORMED BY: LabCoEast Orange VA Medical CenterBberbn6072 [facility] [id number] Information: [id number],2ND ORDER NO DRAW F COMPREHENSIVE (34792) ALT (SGPT) 31 [iU]/L (Normal) Range: 0-40 [...] Creatinine Clearance Comments: PATIENT WAS FASTINGPERFORMED BY: Mimiboard70 [facility] [id number] Information: 10/30@6AM 10/31@730AM Creatinine Clearance 58 mL/min [...] Qn, 24-Hr Comments: PATIENT WAS FASTINGPERFORMED BY: [facility]6370 [facility] [id number] Urine Prot,24hr calculated 1023.8 {mg/24_hr} (Abnormal) Range: 30.0-150.0 Protein,Total,Urine 52.5 mg/dL (Abnormal) Range: 0.0-15.0 :04 HgA1C , Office (04893) HgA1C , Office 6.1 % (Normal) Range: 4.6 - 7.1 66-Kpd-08782:58 CRE Comments: appt 09/21/11 CREAT 1.0 mg/dL (Normal) Range: 0.6-1.0 01-Alo-99894:00 BRAIN W/WO CONTRAST Radiology Report See Note [...] regarding this repor t, please call our [id number] line @ Dictated on 07/27/11 1040 by GAYE PEREZ MD RTranscribed on 07/28/111224 by ITS IMPORTSign by GAYE PEREZ MD on 07/28/111224 Sign by: GAYE PEREZ MD :54 Vitamin D Hydroxy (59800) Comments: PATIENT WAS FASTINGPERFORMED BY: [facility]6370 [employer] [place] [id number] Vitamin D, 25-Hydroxy 48.8 ng/mL (Normal) Range: 30.0-100.0 Comments: Vitamin D deficiency has been defined by the [place] ofMedicine and an Endocrine Society practice guideline as alevel of serum 25-OH vitamin D less than 20 ng/mL (1,2).The Endocrine Society went on to further define vitamin Dinsufficiency as a level between 21 and 29 ng/mL (2).1. IOM ([place] of Medicine). 2010. Dietary reference intakes for calcium and D. [place]: The National Academies Press.2. Mira MF, Rosette [place], Tommy SWAIN, et al. Evaluation, treatment, and prevention of vitamin D deficiency: an Endocrine Society clinical practice guideline. JCEM. 2010; 96(7):1911-30. :54 LIPID PANEL (33215) Comments: PATIENT WAS FASTINGPERFORMED BY: [facility]6370 [facility] [id number] LDL/HDL Ratio 1.0 {ratio_units} (Normal) Range: 0.0-3.2 LDL Cholesterol Calc 72 mg/dL (Normal) Range: 0-99 VLDL Cholesterol Cesar 21 mg/dL (Normal) Range: 5-40 HDL Cholesterol 69 mg/dL (Normal) Comments: According to ATP-III Guidelines, HDL-C >59 mg/dL is considered anegative risk factor for CHD. Triglycerides 106 mg/dL (Normal) Range: 0-149 Cholesterol, Total 162 mg/dL (Normal) Range: 100-199 94-Dut-18663:54 CBC WITH MANUAL DIFF Comments: PATIENT WAS FASTINGPERFORMED BY: LabCoEast Orange VA Medical CenterDckumc7005 [facility] [id number] Information: ADD [id number] AND DRAW FEE 99 2235 (80087) Immature Grans (Abs) 0.0 {x10E3/uL} (Normal) Range: [...] PANEL, COMPREHENSIVE Comments: PATIENT WAS FASTINGPERFORMED BY: [facility] Center6370 [facility] [id number] (47443) ALT (SGPT) 48 [iU]/L (Abnormal) Range: 0-40 [...] (Abnormal) Range: 65-99 :18 HgA1C , Office (77645) HgA1C , Office 6.1 % (Normal) Range: 4.6 - 7.1 47-Kdt-23194:18 Blood Glucose , Office (23819) Blood Glucose , Office 103 (Normal) 24-Yyp-33351:00 ABDOMEN WITH AND W/O CONTRAST Radiology Report [...] radiologist regarding this report, please call our [id number] line @ Dictated on 03/18/11 1715 by Serge Pugh MDranscribed on 03/22/11 1401 by ITS IMPORTSign by Jeanette Hill MD on 03/22/11 1402 Sign by: Keaton MANN,Jeanette 05-Vcr-206473:29 SERUM CRE & GFR CREAT,SERUM 1.1 mg/dL (Abnormal) Range: 0.6-1.0 23-Tal-46618:00 BRAIN W/WO CONTRAST Radiology Report See Note [...] seen in the right frontal white matter order processor ior to themasswithout interval change. The cortical [...] changes. Dictated on 03/02/11 1330 by Mario MANN,PamelaTranscribed on 03/02/11 1729 by ITS IMPORTSign by Donna Martin MD on 03/02/11 1730 Sign by: Mairo MANNDonna 57-Jpx-41831:00 UPPER EXT. JOINT ONLY(ROUTINE) Radiology Report See [...] Ankur Duncan on 03/04/11 1035 Sign by: DakotaAnkur 09-Ulx-065010:08 SHOULDER,MIN 2 VIEWS Radiology Report See Note [...] IMPORTSign by Jeanette Pugh MD on 02/17/11 1206 Sign by: Jeanette Pugh MD :45 CHEST [...] atelectasis, effusion or pneumothorax. Dictated on 01/29/11 0005 by Familia MANN,FrankTranscribed on 01/29/111714 by IT S IMPORTSign by [...] described above. Dictated on 01/03 0759 by Javier DRUMMOND DOcribed on 02/01/11 1020 by ITS IMPORTSign by ALEJANDRO DRUMMOND DO on 02/01/11 1021 Sign by: HODA ALEJANDRO 05-Icz-711054:57 SINUS/FACIAL BONE Radiology Report See Note (Normal) [...] is suggested. Dictated on 01/19/11 1334 by Jody Hebert MDranscribed on 01/19/11 1447 by ITS IMPORTSign by Misael Hebert MD on 01/19/11 1448 Sign by: Misael Hebert MD :00 BRAIN W/WO CONTRAST Radiology Report See [...] addition, there is a small region of obdhfyohfB7pwigfotbpi along the anterior margin of the mass, [...] on 01/19/111650 Sign by: GAYE PEREZ MD 43-Eqz-54903:00 BRAIN/HEAD W/WO CONTRAST Radiology Report See Note [...] 01/19/11 1447 Sign by: Misael Hebert MD 57-Zrf-315227:08 BILAT SCRN DIGITAL & CAD Radiology Report [...] bnormality. Dictated on 01/18/11 1317 by Singh MANN,GabrieleTranscribed on 01/19/11 0848 by ITS IMPORTSign by Singh MANN,Misael on 01/19/11 0849 Sign by: Misael Hebert MD 09-Jun-20119:20 MICROALBUMIN: CREATININE RATIO Comments: PATIENT NOT FASTINGPERFORMED BY: LabCoEast [facility] Medical CenterAcnuuh3906 [facility] [id number] (43356) AND (31591) Microalb/Creat Ratio 1028.4 {mg/g_creat} (Abnormal) Range: 0.0-30.0 Microalbumin, Urine 1341.0 ug/mL (Abnormal) Range: 0.0-17.0 Creatinine, Urine 130.4 mg/dL (Normal) Range: 15.0-278.0 :20 CBC WITH MANUAL DIFF (08092) Comments: PATIENT NOT FASTINGPERFORMED BY: LabCoNew Mexico Behavioral Health Institute at Las VegasEkjtxh1058 [facility] [id number] Immature Grans (Abs) 0.0 {x10E3/uL} (Normal) Range: [...] {x10E3/uL} (Normal) Range: 4.0-10.5 :20 LIPID PANEL (51216) Comments: PATIENT NOT FASTINGPERFORMED BY: [facility]6370 [facility] [id number] LDL/HDL Ratio 0.9 {ratio_units} (Normal) Range: 0.0-3.2 [...] PANEL, COMPREHENSIVE Comments: PATIENT NOT FASTINGPERFORMED BY: Kiddifylin6370 [facility] [id number] (53177) ALT (SGPT) 28 [iU]/L (Normal) Range: 0-40 [...] (Abnormal) Range: 65-99 :39 HgA1C , Office (28520) HgA1C , Office 6.5 % (Normal) Range: 4.6 - 7.1 :39 Blood Glucose , Office (82241) Blood Glucose , Office 128 (Normal) 7-Shn-327300:19 CBC With Differential/Platelet Comments: PATIENT WAS FASTINGPERFORMED BY: LabCoEast [facility] CenterDobgqo9404 [facility] [id number] Immature Grans (Abs) 0.0 {x10E3/uL} (Normal) Range: [...] 3.80-5.10 WBC 5.6 {x10E3/uL} (Normal) Range: 4.0-10.5 0-Qhq-156748:19 Comp. Metabolic Panel (14) Comments: PATIENT WAS FASTINGPERFORMED BY: LabCoEast [facility] Medical CenterOkmced6653 [facility] [id number]; appt 01/11/11 ALT (SGPT) 18 [iU]/L (Normal) [...] Glucose, Serum 113 mg/dL (Abnormal) Range: 65-99 9-Dat-530539:19 Lipid Panel With LDL/HDL Comments: PATIENT WAS FASTINGPERFORMED BY: Mimiboard70 [facility] [id number] Ratio LDL/HDL Ratio 1.0 {ratio_units} Range: 0.0-3.2 [...] 0.800 {uIU/mL} Comments: PATIENT WAS FASTINGPERFORMED BY: Mimiboard70 [facility] [id number] 2:19 (Normal) Range: 0.450-4.500 Vitamin D, 25-Hydroxy 44.0 ng/mL (Normal) Comments: PATIENT WAS FASTINGPERFORMED BY: [facility]6370 [facility] CenterAcunoteFormerly [facility] [id number] 2:19 Range: 32.0-100.0 Comments: Effective February 22, 2011 Vitamin D, 25-Hydroxy reference intervals will be changing to 30-100. .Recent studies consider the lower li sandra of 32.0 ng/mL to be athreshold for optimal health.Otf HAYES. J Nutr. 2004;135(2):317-22. :54 HgA1C , Office (23498) HgA1C , Office 6.6 % (Normal) Range: 4.6 - 7.1 :54 Blood Glucose , Office (39207) Blood Glucose , Office 134 (Normal) :40 Creatinine Clearance Comments: PERFORMED BY: [facility]oard70 [facility] [id number] Information: 10/07@7AM 10/08@3AM Creatinine Clearance 56 mL/min [...] Protein Total, Qn, 24-Hr Comments: PERFORMED BY: [facility]6370 [facility] [id number] Urine Prot,24hr calculated 610.5 {mg/24_hr} (Abnormal) Range: 30.0-150.0 Protein,Total,Urine 40.7 mg/dL (Abnormal) Range: 0.0-15.0 :46 Vitamin D Hydroxy (19338) Comments: PATIENT WAS FASTINGPERFORMED BY: [employer] Xelrkb5221 [facility] [id number] Vitamin D, 25-Hydroxy 36.5 ng/mL (Normal) Range: 32.0-100.0 Comments: Recent studies consider the lower limit of 32.0 ng/mL to be athreshold for optimal health.Otf HAYES. J Nutr. 2004;135(2):317-22. :46 METABOLIC PANEL, COMPREHENSIVE Comments: PATIENT WAS FASTINGPERFORMED BY: LabCoProvidence Surgery CentersGonpwc0846 [place] [id number] (67485) ALT (SGPT) 34 [iU]/L (Normal) Range: 0-40 [...] mg/dL (Abnormal) Range: 65-99 :46 LIPID PANEL (55589) Comments: PATIENT WAS FASTINGPERFORMED BY: [facility]6370 [facility] [id number] LDL Cholesterol Calc 85 mg/dL (Normal) Range: [...] MANUAL DIFF Comments: PATIENT WAS FASTINGPERFORMED BY: [facility]6370 [facility] [id number] Information: [id number]; appt 10/12/10 (30921) Immature Grans (Abs) 0.0 {x10E3/uL} (Normal) Range: [...] (Normal) Range: 4.0-10.5 :07 HgA1C , Office (68581) HgA1C , Office 6.6 % (Normal) Range: 4.6 - 7.1 :07 Blood Glucose , Office (58613) Blood Glucose , Office 114 (Normal) 42-Ceq-765861:00 Creatinine Clearance Comments: PERFORMED BY: LabCoEast [facility] Medical CenterCtayez1006 [facility] [id number] Information: 12/31@8AM 01/01@4AM Creatinine Clearance 48 mL/min [...] Creatinine, Serum 1.20 mg/dL (Abnormal) Range: 0.57-1.00 25-Jsd-864588:00 Protein Total, Qn, 24-Hr Comments: PERFORMED BY: [facility] Lapgmp0073 [place] [id number] Urine Prot,24hr calculated 1070.6 {mg/24_hr} (Abnormal) Range: 30.0-150.0 Protein,Total,Urine 79.3 mg/dL (Abnormal) Range: 0.0-15.0 29-Nbu-907627:48 BILAT SCRN DIGITAL & CAD Radiology Report See Note (Normal) Comments: Exam Number: [id number] MAMMOGRAPHY - BILATERAL SCREENING INDICATION:Routine annual screening [...] of attaching a ResultCode to this exam.ADDENDUM: [id number] HPBI/MDS Reported By: MISAEL HEBERT 25-Uea-803194:48 DEXA BONE DENSITY STUDY (HP) Radiology Report See Note (Normal) Comments: Exam Number: [id number] CLINICAL:This is a 69-year-old female patient with postmenopausal screening. EXAMINATION:DUAL ENERGY X-RAY ABSORPTIOMETRY / DEXA. TECHNIQUE:Bone Density Measurements (BMD) of lumb ar spine and bilateral hipswere obtained using a [employer] scanner.. COMPARISON:None. FINDINGS: Lumbar Spine (L1-L4): g/cm2 [...] Osteoporosis Foundation http://www.nof.org Reported By: MISAEL HEBERT 19-Bnk-423468:29 HgA1C , Office (58781) HgA1C , Office 6.5 % (Normal) Range: 4.6 - 7.1 27-Kdc-028695:29 Blood Glucose , Office (48076) Blood Glucose , Office 109 (Normal) 32-Mdp-61067:05 CBC With Differential/Platelet Comments: PATIENT WAS FASTINGPERFORMED BY: LabCo Spduui5738 [facility] [id number] Immature Grans (Abs) 0.0 {x10E3/uL} (Normal) Range: [...] 3.80-5.10 WBC 3.9 {x10E3/uL} (Abnormal) Range: 4.0-10.5 39-Hah-08611:05 Comp. Metabolic Panel (14) Comments: PATIENT WAS FASTINGPERFORMED BY: LabCoEast Orange [facility] Medical CenterLbzwyj8367 [facility] [id number] ALT (SGPT) 20 [iU]/L (Normal) Range: 0-40 [...] With LDL/HDL Comments: PATIENT WAS FASTINGPERFORMED BY: [employer] Osinli8747 [facility] [id number] Ratio HDL Cholesterol 54 mg/dL (Normal) Comments: [...] ng/mL (Normal) Comments: PATIENT WAS FASTINGPERFORMED BY: [facility]6370 [facility] [id number] :05 Range: 32.0-100.0 Comments: Recent studies consider the lower limit of 32.0 ng/mL to be athreshold for optimal health.Otf HAYES. J Nutr. 2004;135(2):317-22. 92-Wmy-77695:41 SPLEEN (HP) Radiology Report See Note (Normal) Comments: Exam Number: [id number] ULTRASOUND OF THE SPLEEN A goal directed ultrasound of the spleen was obtained. HISTORYThithiago is a 69-year-old female patient with a history ofthrombocytopenia. FINDINGSThe spleen i s not enlarged. It measures 11.7 cm in longitudinaldimension, by 5.4 cm in transverse dimension, by 4.7 cm in APdimension. It is of homogeneous echotexture. No focal lesion isseen. IMPRESSIONNormal s plenic sonogram. Reported By: MISAEL HEBERT 17-Jun-2009 C-Reactive Protein, 0.5 mg/L (Normal) Comments: PERFORMED BY: Mimiboard70 [facility] [id number] 10:54 Quant Range: 0.0-4.9 17-Jun-2009 Hemoglobin A1c 6.3 % (Abnormal) Comments: PERFORMED BY: CVTech GroupNov[facility] [id number] 10:54 Range: 4.8-5.6 Comments: Increased risk for diabetes: 5.7 - 6.4Diabetes: >6.4Glycemic control for adults with diabetes: <7.0.Please note reference interval change 17-Jun-2009 Sedimentation 4 mm/h (Normal) Comments: PERFORMED BY: Mimiboard70 [facility] [id number] 10:54 Rate-Westergren Range: 0-30 17-Jun-2009 Vitamin B12 1372 pg/mL Comments: PERFORMED BY: [employer] [facility] [id number] 10:54 (Abnormal) Range: 211-911 Comments: Effective July 14, 2009, Vitamin B12 will bechanging to the [place] ECLIA methodology. Thereference interval will be changing to:211 - 946 pg/mL 17-Jun-2009 Vitamin D, 25-Hydroxy 37.7 ng/mL Comments: PERFORMED BY: EVE ShopperceptionSoutheast [facility] Jqskly1177 [facility] [id number] 10:54 (Normal) Range: 32.0-100.0 Comments: Recent studies consider the lower limit of 32.0 ng/mL to be athreshold for optimal health.Otf HAYES. J Nutr. 2004;135(2):317-22. 16-Peu-536575:34 Vitamin D Hydroxy Comments: PATIENT NOT FASTINGPERFORMED BY: LabCoEast Orange VA Medical CenterCvvaum7540 [facility] [id number] Information: L91683,2ND ORDER NO DRAW F EE (67452) Vitamin D, 25-Hydroxy 48.5 ng/mL (Normal) Range: 30.0-100.0 Comments: Vitamin D deficiency has been defined by the [place] of[place] and an Endocrine Society practice guideline as alevel of serum 25-OH vitamin D less than 20 ng/mL (1,2).The Endocrine Society went on to further define vitamin Dinsufficiency as a level between 21 and 29 ng/mL (2).1. IOM ([place] of Medicine). 2010. Dietary reference intakes for calcium and D. [place]: The National Academies Press.2. Mira MF, [place], Tommy SWAIN, et al. Evaluation, treatment, and prevention of vitamin D deficiency: an Endocrine Society clinical practice guideline. JCEM. 2010; 96(7):1911-30. :50 HgA1C , Office (25973) HgA1C , Office 6.7 % (Normal) Range: 4.6 - 7.1 :50 Blood Glucose , Office (66759) Blood Glucose , Office 117 (Normal) 82-Wmk-989790:12 CBC With Differential/Platelet Comments: PERFORMED BY: [facility] Dyeptf6091 [facility] [id number] Information: 06/10@6AM3/10@330AM Hematology Comments: Note: (Normal) Comments: [...] 3.80-5.10 WBC 3.6 {x10E3/uL} (Abnormal) Range: 4.0-10.5 52-Ceg-385440:12 Comp. Metabolic Panel (14) Comments: PERFORMED BY: LabCoEast [facility] CenterTqqwrl8824 [facility] [id number] Alkaline Phosphatase, S 68 [iU]/L (Normal) Range: [...] Glucose, Serum 124 mg/dL (Abnormal) Range: 65-99 57-Eww-048090:12 Creatinine Clearance Comments: PERFORMED BY: [facility] GroupNov[facility] [id number] Creatinine Clearance 49 mL/min (Abnormal) Range: 88-128 Comments: The above range is based on 1.73 square meter average body surfacearea. Creatinine, Ur 24hr 800.0 {mg/24_hr} (Normal) Range: 800.0-1800.0 Creatinine, Urine 40.0 mg/dL (Normal) Range: 15.0-278.0 92-Dlx-047780:12 Lipid Panel With LDL/HDL Comments: PERFORMED BY: [employer] [id number] Ratio HDL Cholesterol 61 mg/dL (Normal) Comments: According to ATP-III Guidelines, HDL-C >59 mg/dL is considered anegative risk factor for CHD. LDL Cholesterol Calc 74 mg/dL (Normal) Range: 0-99 LDL/HDL Ratio 1.2 {ratio_units} (Normal) Range: 0.0-3.2 VLDL Cholesterol Cesar 17 mg/dL (Normal) Range: 5-40 Cholesterol, Total 152 mg/dL (Normal) Range: 100-199 Triglycerides 87 mg/dL (Normal) Range: 0-149 28-Qpi-583793:12 Protein Total, Qn, 24-Hr Comments: PERFORMED BY: [employer] Eghabc4870 [facility] [id number] Urine Prot,24hr calculated 1172.0 {mg/24_hr} Range: 30.0-150.0 (Abnormal) Protein,Total,Urine 58.6 mg/dL (Abnormal) Range: 0.0-15.0 TSH 1.280 {uIU/mL} Comments: PERFORMED BY: Leaders202070 [facility] [id number] 1:12 (Normal) Range: 0.450-4.500 :58 HgA1C , Office (68543) HgA1C , Office 6.0 % (Normal) Range: 4.6 - 7.1 :58 Blood Glucose , Office (39800) Blood Glucose , Office 113 (Normal) 9-Nqo-304278:03 CBC With Differential/Platelet Comments: PATIENT WAS FASTINGPERFORMED BY: TalkableEast Orange VA Medical CenterJobiqw3714 [facility] [id number] Baso (Absolute) 0.0 {x10E3/uL} (Normal) Range: 0.0-0.2 [...] 11.7-15.0 WBC 3.2 {x10E3/uL} (Abnormal) Range: 4.0-10.5 7-Asz-550353:03 Comp. Metabolic Panel (14) Comments: PATIENT WAS FASTINGPERFORMED BY: LabCoEast Orange [facility] Medical CenterGhdyhr4489 [facility] [id number] A/G Ratio 2.0 (Normal) Range: 1.1-2.5 Albumin, [...] With LDL/HDL Comments: PATIENT WAS FASTINGPERFORMED BY: [employer]6370 WelzooFormer[facility] [id number] Ratio Cholesterol, Total 167 mg/dL (Normal) Range: [...] ng/mL (Normal) Comments: PATIENT WAS FASTINGPERFORMED BY: [employer]6370 [facility] [id number] :03 Range: 32.0-100.0 Comments: Recent studies consider the lower limit of 32.0 ng/mL to be athreshold for optimal health.Otf HAYES. J Nutr. 2004;135(2):317-22. 90-Lxn-973832:32 Urinalysis, Office (42940) UA - BILIRUBIN Negative (Normal) UA - BLOOD Hemolyzed Trace (Normal) UA - GLUCOSE Negative (Normal) UA - KETONES Negative mg/dL (Normal) UA - LEUKOCYTE ESTERASE Negative (Normal) UA - NITRITE Negative (Normal) UA - PH 6.5 (Normal) UA - PROTEIN 300 mg/dL (Normal) UA - SPECIFIC GRAVITY 1.020 (Normal) URINE UROBILINGN JATINDER TIMED 2 mg/dL (Normal) 6-Guy-339880:19 URINE SETH CULTURE-JATINDER COL Comments: PATIENT NOT FASTINGClinical Information: SRC:UR ADD [id number] PERFORMED BY: [facility] MediaCass Medical CenterAcunoteFormerly [facility] [id number] COUNT (02945) Result 1 ECV (Normal) Comments: Escherichia coli, [...] report (Normal) Culture,Comprehensiv e 09-Jan-20098:17 Urinalysis, Office (16628) UA - BILIRUBIN Negative (Normal) UA - BLOOD Hemolyzed Large (Normal) UA - GLUCOSE Negative (Normal) UA - KETONES Negative mg/dL (Normal) UA - LEUKOCYTE ESTERASE Moderate (Normal) UA - NITRITE Negative (Normal) UA - PH 7.0 (Normal) UA - PROTEIN 300 mg/dL (Normal) UA - SPECIFIC GRAVITY 1.020 (Normal) URINE UROBILINGN JATINDER TIMED 2 mg/dL (Normal) 2-Srh-163596:05 Comp. Metabolic Panel (14) Comments: PATIENT WAS FASTINGPERFORMED BY: Mimiboard70 [facility] [id number] A/G Ratio 1.7 (Normal) Range: 1.1-2.5 Albumin, [...] Sodium, Serum 142 mmol/L (Normal) Range: 135-145 4-Zqp-433251:05 Hepatic Function Panel (7) Comments: PATIENT WAS FASTINGPERFORMED BY: [employer] [facility] Dsolua3871 [facility] [id number] Bilirubin, Direct 0.12 mg/dL (Normal) Range: 0.00-0.40 4-Zks-066960:05 Lipid Panel With LDL/HDL Comments: PATIENT WAS FASTINGPERFORMED BY: [employer] [facility] Tdxebf8480 [facility] [id number] Ratio Cholesterol, Total 170 mg/dL (Normal) Range: 100-199 HDL Cholesterol 63 mg/dL (Normal) Comments: According to ATP-III Guidelines, HDL-C >59 mg/dL is considered anegative risk factor for CHD. LDL Cholesterol Calc 91 mg/dL (Normal) Range: 0-99 LDL/HDL Ratio 1.4 {ratio_units} Range: 0.0-3.2 (Normal) Triglycerides 80 mg/dL (Normal) Range: 0-149 VLDL Cholesterol Cesar 16 mg/dL (Normal) Range: 5-40 Phosphorus, Serum 4.1 mg/dL (Normal) Comments: PATIENT WAS FASTINGPERFORMED BY: [employer] Bbaggf0623 [facility] [id number] :05 Range: 2.5-4.5 PTH, Intact 19 pg/mL (Normal) Comments: PATIENT WAS FASTINGPERFORMED BY: TalkableEast Orange VA Medical CenterHjgksu0359 [facility] [id number] :05 Range: 15-65 Vitamin D, 25-Hydroxy 38.9 ng/mL (Normal) Comments: PATIENT WAS FASTINGPERFORMED BY: [facility] Clnnlh5222 [facility] [id number] :05 Range: 32.0-100.0 Comments: Recent studies consider the lower limit of 32.0 ng/mL to be athreshold for optimal health.Otf HAYES. J Nutr. 2004;135(2):317-22. :40 HgA1C , Office (24325) HgA1C , Office 6.0 % (Normal) Range: 4.6 - 7.1 :40 Blood Glucose , Office (64824) Blood Glucose , Office 109 (Normal) :42 CBC With Differential/Platelet Comments: PATIENT WAS FASTINGPERFORMED BY: LabCoEast Orange VA Medical CenterXqvopl1416 [facility] [id number] Baso (Absolute) 0.0 {x10E3/uL} (Normal) Range: 0.0-0.2 [...] 11.7-15.0 WBC 4.2 {x10E3/uL} (Normal) Range: 4.0-10.5 25-Chf-730196:42 Comp. Metabolic Panel (14) Comments: PATIENT WAS FASTINGPERFORMED BY: LabCoEast Orange VA Medical CenterKcnrqp0464 [facility] [id number] A/G Ratio 1.6 (Normal) Range: 1.1-2.5 Albumin, [...] Sodium, Serum 140 mmol/L (Normal) Range: 135-145 2-Fyd-230940:09 FECAL OCCULT HGB ASSAY, QUAL, 1-3 SIMULTANEOUS DETERMINATIONS (53499) FECAL OCCULT HGB ASSAY, QUAL, 1-3 SIMULTANEOU neg (Normal) :42 Microscopic Examination Comments: PATIENT WAS FASTINGPERFORMED BY: [employer] [facility] Nakjko9012 [facility] [id number] Bacteria None seen (Normal) Cast Type Hyaline casts (Normal) Casts Present {/lpf} (Abnormal) Epithelial Cells (non renal) 0-10 {/hpf} (Normal) Range: 0 - 10 Mucus Threads Present (Normal) RBC 0-3 {/hpf} (Normal) Range: 0 - 3 WBC 0-5 {/hpf} (Normal) Range: 0 - 5 :42 URINALYSIS W/O MICRO (50951) Comments: PATIENT WAS FASTINGPERFORMED BY: [employer] LabCoEndoSphere Yecetr7577 [facility] [id number] Appearance Clear (Normal) Bilirubin Negative (Normal) Glucose Negative (Normal) Ketones Negative (Normal) Microscopic Examination See below: (Normal) Nitrite, Urine Negative (Normal) Occult Blood Negative (Normal) pH 5.0 (Normal) Range: 5.0-7.5 Protein 1+ (Abnormal) Specific [place] 1.013 (Normal) Range: 1.005-1.030 Urine-Color Yellow (Normal) Urobilinogen,Semi-Qn 0.2 mg/dL (Normal) Range: 0.0-1.9 WBC Esterase 1+ (Abnormal) :42 MICROALBUMIN: CREATININE RATIO Comments: PATIENT WAS FASTINGPERFORMED BY: [employer] [id number] (33680) AND (57638) Creatinine, Urine 76.1 mg/dL (Normal) Range: 15.0-278.0 Microalb/Creat Ratio 292.1 {ug/mg_creat} (Abnormal) Range: 0.0-30.0 Microalbumin, Urine 222.3 ug/mL (Abnormal) Range: 0.0-17.0 :42 CBC WITH MANUAL DIFF (01162) Comments: PATIENT WAS FASTINGClinical Information: ADD DRAW FEE 239146 ADD J 18116 PERFORMED BY: [employer]6370 [facility] [id number] Baso (Absolute) 0.0 {x10E3/uL} (Normal) Range: 0.0-0.2 [...] PANEL, COMPREHENSIVE Comments: PATIENT WAS FASTINGPERFORMED BY: LabCoEast Orange VA Medical CenterAarvld1980 [facility] [id number] (40665) A/G Ratio 1.8 (Normal) Range: 1.1-2.5 Albumin, [...] Sodium, Serum 141 mmol/L (Normal) Range: 135-145 9-Yql-474233:23 HgA1C , Office (77855) HgA1C , Office 6.0 % (Normal) Range: 4.6 - 7.1 8-Dxd-473990:23 Blood Glucose , Office (89478) Blood Glucose , Office 103 (Normal) 47-Rlu-613246:38 CBC WITH MANUAL DIFF (03208) Comments: PATIENT WAS FASTINGClinical Information: ADD DRAW FEE 897275 ADD J 66720 PERFORMED BY: EVE LabCoEast Orange VA Medical CenterZhuzhu9668 [facility] [id number] Baso (Absolute) 0.0 {x10E3/uL} (Normal) Range: 0.0-0.2 [...] 11.7-15.0 WBC 4.0 {x10E3/uL} (Normal) Range: 4.0-10.5 31-Jrz-534560:38 METABOLIC PANEL, COMPREHENSIVE Comments: PATIENT WAS FASTINGPERFORMED BY: LabCoEast [facility] Medical CenterPzxsti0681 [facility] [id number] (24798) A/G Ratio 1.8 (Normal) Range: 1.1-2.5 Albumin, [...] Sodium, Serum 142 mmol/L (Normal) Range: 135-145 37-Wft-628334:38 HEPATIC FUNCTION PANEL Comments: PATIENT WAS FASTINGPERFORMED BY: [place] 5612170 [facility] [id number] (75963) Bilirubin, Direct 0.08 mg/dL (Normal) Range: 0.00-0.40 20-Jgp-668112:38 LIPID PANEL (81027) Comments: PATIENT WAS FASTINGPERFORMED BY: [place] 5612170 [facility] [id number] Cholesterol, Total 200 mg/dL (Abnormal) Range: 100-199 [...] Cholesterol Cesar 18 mg/dL (Normal) Range: 5-40 6-Udh-791280:36 HgA1C , Office (50417) HgA1C , Office 6.1 % (Normal) Range: 4.6 - 7.1 :36 Blood Glucose , Office (88647) Blood Glucose , Office 98 (Normal) 49-Ppq-759498:33 CBC With Differential/Platelet Comments: PATIENT WAS FASTINGClinical Information: SRC:UR PERFORMED BY: [place] 5612170 [facility] [id number] Baso (Absolute) 0.0 {x10E3/uL} (Normal) Range: 0.0-0.2 [...] 11.7-15.0 WBC 4.8 {x10E3/uL} (Normal) Range: 4.0-10.5 84-Siq-213075:33 Comp. Metabolic Panel (14) Comments: PATIENT WAS FASTINGPERFORMED BY: LabCoEast Orange VA Medical CenterIjhkvg1214 [facility] [id number] A/G Ratio 1.6 (Normal) Range: 1.1-2.5 Albumin, [...] Serum 92 mg/dL (Normal) Range: 65-99 If -[place] 57 mL/min/1.73 Comments: Note: Persistent reduction for [...] Sodium, Serum 142 mmol/L (Normal) Range: 135-145 58-Ats-902334:33 Lipid Panel With LDL/HDL Comments: PATIENT WAS FASTINGPERFORMED BY: [employer] [place] [id number] Ratio Cholesterol, Total 174 mg/dL (Normal) Range: 100-199 HDL Cholesterol 67 mg/dL (Normal) Comments: According to ATP-III Guidelines, HDL-C >59 mg/dL is considered anegative risk factor for CHD. LDL Cholesterol Calc 85 mg/dL (Normal) Range: 0-99 LDL/HDL Ratio 1.3 {ratio_units} (Normal) Range: 0.0-3.2 Triglycerides 110 mg/dL (Normal) Range: 0-149 VLDL Cholesterol Cesar 22 mg/dL (Normal) Range: 5-40 21-Ulq-777905:33 Urine Culture,Comprehensive Comments: PATIENT WAS FASTINGPERFORMED BY: [employer] [id number] Antimicrobial MIHEAD (Normal) Comments: S = Susceptible; [...] Enterococcus. (Normal) Urine Final report (Normal) Culture,Comprehensive 2-Myv-250670:10 HgA1C , Office (12380) HgA1C , Office 5.9 % (Normal) Range: [...] mL (Normal) URINE PROTEIN 20.0 mg/dL (Abnormal) 36-Uvk-782077:17 Urine Culture,Comprehensive Comments: Clinical Information: SRC:UR PERFORMED BY: [facility] Mipopg6306 [facility] [id number] Result 1 CNSNSS (Normal) Comments: Coagulase negative Staphylococcus species, not Staphylococcussaprophyticus.600 Colonies/mLSusceptibility or resistance of staphylococci to oxacillin predictssusceptibility or resistance to (a) other be ra-azxbxkzog-htnuqkxtuxbxtulcf such as cloxacillin and dicloxacillin, (b) combinationsof a penicillin and a beta-lactamase inhibitor, and(c) anti- staphylococcal cephalosporins. Routine testing of otherp enicillins, beta-lactam/beta-lactamase inhibitor combinations,cephems, and carbapenems is not advised by the CLSI Standards(Z025-A82, 2005). S = Susceptible; I = Intermediate; R = Resistant * P = Positive; N = Negative MICS are expressed in micrograms per mL Antibiotic RSLT#1 RSLT#2 RSLT#3 RSLT#4Ciprofloxacin RGentami kristian SLevofloxacin RNitrofurantoin SOxacillin SPenicillin RRifampin STrimethoprim/Sulfa SVancomycin S Urine Final report Culture,Comprehensi (Normal) ve 6-Gcz-117582:53 Metabolic Panel, Basic (94788) Comments: PATIENT NOT FASTINGClinical Information: ADD DRAW FEE [id number] ADD J 23763 PERFORMED BY: LabCoEast Orange [facility] Medical CenterAafcxl0952 [facility] [id number] BUN 39 mg/dL (Abnormal) Range: 5-26 BUN/Creatinine Ratio 33 (Abnormal) Range: 8-27 Calcium, Serum 9.8 mg/dL (Normal) Range: 8.5-10.6 Carbon Dioxide, Total 22 mmol/L (Normal) Range: 20-32 Chloride, Serum 103 mmol/L (Normal) Range: 97-108 Creatinine, Serum 1.20 mg/dL (Abnormal) Range: 0.57-1.00 Glom Filt Rate, Est 45 mL/min/1.73 Range: 60-128 (Abnormal) Glucose, Serum 101 mg/dL (Abnormal) Range: 65-99 If -[place] 55 mL/min/1.73 Range: 60-128 (Abnormal) Comments: Note: Persistent reduction for 3 months or more in an eGFR<60 mL/min/1.73 m2 defines CKD. Patients with eGFR values>/=60 mL/min/1.73 m2 may also have CKD if evidence of persistentproteinuria is present. Additional information may be found atwww.kdoqi.org. Potassium, Serum 5.1 mmol/L (Normal) Range: 3.5-5.2 Sodium, Serum 139 mmol/L (Normal) Range: 135-145 :09 HgA1C , Office (72564) HgA1C , Office 6.1 % (Normal) Range: 4.6 - 7.1 :09 Blood Glucose , Office (86645) Blood Glucose , Office 163 (Normal) :37 SPINE,LUMBAR (ROUTINE) Radiology Report See Note (Normal) Comments: Exam Number: [id number] MRI LUMBAR SPINE CLINICAL STATEMENTLow back pain [...] onboth sides. Reported By: MODESTA COPE M.D. 29-Lve-413300:00 BILAT SCRN DIGITAL & CAD Radiology Report See Note (Normal) Comments: Exam Number: [id number] MAMMOGRAM, BILATERAL SCREENING DIGITAL AND CAD HISTORYRoutine screening. Full field digital images were obtained in mediolateral oblique andcraniocaudal projections. CAD images w ere reviewed. The current study is compared to the examinations of April 02, 2005[facility] [employer]. A small metal marker is placed on [...] mammograms werealso examined with computer-aided detection software (Fiteeza.). Reported By: DONNA OJEDA M.D. 30-Zpo-376859:59 DEXA BONE DENSITY STUDY (HP) Radiology Report See Note (Normal) Comments: Exam Number: [id number] BONE DENSITOMETRY HISTORYPost menopausal. TECHNIQUE Bone densitometry [...] Report See Note (Normal) Comments: Exam Number: [id number] FIVE VIEW LUMBAR SPINE AP, lateral, both [...] Randm Ur Comments: PATIENT NOT FASTINGPERFORMED BY: EVE Symphogenlin6370 [facility] [id number] Creatinine, Urine 46.8 mg/dL (Normal) Microalb/Creat Ratio 712.8 {ug/mg_creat} (Abnormal) Range: 0.0-30.0 Microalbum.,U,Random 333.6 ug/mL (Abnormal) Range: 0.0-17.0 :13 Creatinine Clearance Comments: PATIENT NOT FASTINGClinical Information: HT-5'4'' WT-184 PERFORMED BY: EVE Symphogenlin6370 [facility] [id number] Creatinine Clearance 40 mL/min (Abnormal) Range: 88-128 Comments: The above range is based on 1.73 square meter average body surfacearea. Creatinine, Serum 1.30 mg/dL (Normal) Range: 0.50-1.50 Creatinine, Ur 24hr 754.8 {mg/24_hr} Range: 800.0-1800.0 (Abnormal) Creatinine, Urine 44.4 mg/dL (Normal) Glom Filt Rate, Est 41 mL/min (Abnormal) Range: 60-128 If -[place] 50 mL/min (Abnormal) Range: 60-128 Comments: Note: Persistent reduction for 3 months or more in an eGFR<60 mL/min/1.73 m2 defines CKD. Patients with eGFR values>/=60 mL/min/1.73 m2 may also have CKD if evidence of persistentproteinuria is present. .Additional information may be found at www.kdoqi.org. 05-Sep-20079:13 Protein Total, Qn, 24-Hr Comments: PATIENT NOT FASTINGPERFORMED BY: EVE [facility] Enyfzi9485 [facility] [id number] Urine Protein,Total,Urine 49.0 mg/dL (Abnormal) Range: 0.0-15.0 Prt, 24hr calculated 833.0 {mg/24_hr} (Abnormal) Range: 30.0-150.0 48-Ybs-824448:00 CBCD,SMEAR DIFF CELLS COUNTED 100 (Normal) EOS [...] 47-70 WBC 4.3 K/mm3 (Abnormal) Range: 4.4-11.0 04-Wxp-937342:00 COMP METABOLIC A/G 1.4 {RATIO} (Normal) Range: [...] T PROT 6.6 g/dL (Normal) Range: 6.4-8.2 56-Shz-785825:00 D BILI 0.06 mg/dL (Normal) Range: 0.00-0.30 12-Oox-060102:00 LIPID CHOL 175 mg/dL (Normal) Comments: <200 [...] mg/dL VLDL 12 mg/dL (Normal) Range: 5-40 73-Zko-509881:00 TSH 0.84 {uIU/mL} (Normal) Range: 0.34-4.82 Plan [...] of uncertain behavior of skin Planned Observations PARATHORMONE (20616)Indication: Chronic kidney disease, stage 3 On: 06-Mar-20188:59 Request Comments: fax to [phone] MICROALBUMIN: CREATININE RATIO (95241) AND (93099)Indication: Chronic kidney disease, stage 3 On: 06-Mar-20188:55 Request Comments: fax to [phone] RENAL FUNCTION PANEL (76190)Indication: Chronic kidney disease, stage 3 On: :54 Request Comments: fax to [phone] MAGNESIUM (02139)Indication: Chronic kidney disease, stage 3 On: :54 Request Comments: fax to [phone] Parathyroid Hormone-related Peptide (PTH-rP) (54214)Indication: Chronic kidney disease, stage 3 On: 06-Mar-20188:54 Request Comments: fax to [phone] CBC W/AUTO DIFF WBC (21897)Indication: Chronic kidney disease, stage 3 On: 33-Mrp-084905:25 Request Parathyroid Hormone-related Peptide (PTH-rP) (96619)Indication: Vitamin D deficiency On: 9-Dbx-417348:43 Request Comments: send results to Dr. Santana fax: [phone] VITAMIN D, 1, 25-DIHYDROXY (22650)Indication: Vitamin D deficiency On: 9-Gsi-473248:42 Request Comments: send results to Dr. Santana fax: [phone] Clostridium difficile Toxin A+B, EIA (70536)Indication: Chronic diarrhea On: 6-Wum-841542:36 Request Vitamin D Hydroxy (80102)Indication: Osteopenia On: 4-Teg-941803:20 Request CBC W/AUTO DIFF WBC (31174)Indication: Hypertension, benign On: 3-Szz-977940:16 Request CALCIFEDIOL (24258)Indication: Chronic kidney disease, stage 3 On: :04 Request Renal function Panel (07766)Indication: Chronic kidney disease, stage 3 On: :04 Request Magnesium (08950)Indication: Chronic kidney disease, stage 3 On: :04 Request MICROALBUMIN: CREATININE RATIO (26335) AND (97967)Indication: Chronic kidney disease, stage 3 On: 03-Aug-20169:04 Request Parathyroid Hormone-related Peptide (PTH-rP) (71610)Indication: Chronic kidney disease, stage 3 On: :04 Request T4, FREE (THYROXINE) (96736)Indication: Cold feeling On: 03-Aug-20168:31 Request TSH (16515)Indication: Cold feeling On: 03-Aug-20168:31 Request PARATHORMONE (13485)Indication: Chronic kidney disease, stage 3 On: :18 Request Comments: copy to Dr. Santana [phone] CALCIFIDIOL (47615) VIT D 25Indication: Chronic kidney disease, stage 3 On: :16 Request Comments: copy to Dr. Santana [phone] MAGNESIUM (12454)Indication: Chronic kidney disease, stage 3 On: :15 Request Comments: copy to Dr. Santana [phone] PROTEIN/CREAT RATIO, URINE (69441)Indication: Chronic kidney disease, stage 3 On: :15 Request Comments: copy to Dr. Santana [phone] LIPID PANEL (05859)Indication: Mixed hyperlipidemia On: :21 Request CBC with auto diff (67982)Indication: Diabetes mellitus type II, controlled On: :20 Request METABOLIC PANEL, COMPREHENSIVE (12028)Indication: Diabetes mellitus type II, controlled On: 69-Vep-970284:20 Request HGB A1C (03966)Indication: Diabetes mellitus type II, controlled On: 58-Hii-327591:10 Request Vitamin D Hydroxy (43088)Indication: Osteopenia On: 11-Yxm-467003:08 Request TSH (THYROID STIMULATING HORMONE) (34189)Indication: Depression On: 07-Crs-513799:06 Request LIPID PANEL (36431)Indication: Other and unspecified hyperlipidemia On: 42-Wsb-652105:06 Request CBC with auto diff (13809)Indication: Diabetes mellitus type II, controlled On: 17-Vli-888198:06 Request METABOLIC PANEL, COMPREHENSIVE (28902)Indication: Diabetes mellitus type II, controlled On: 34-Pns-769374:06 Request CREATININE CLEARANCE (95906)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 On: 2-Zky-944603:38 Request Total Protein,24 Hour Urine (87473)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 On: 7-Ftw-083792:38 Request CBC W/AUTO DIFF WBC (93441)Indication: Diabetes mellitus type II, controlled On: 29-Bta-003462:11 Request HgA1C , Office (28825)Indication: Diabetes mellitus type II, controlled On: 92-Ukq-229667:23 Request CULTURE, SPUTUM (93910)Indication: Cough On: 17-Xrz-908341:47 Request HEPATIC FUNCTION PANEL (80121)Indication: Elevated LFTs On: 76-Tng-77312:24 Request CREATININE CLEARANCE (69831)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 On: 27-Tur-89073:33 Request 24 hour urine for Protein (38530)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 On: 59-Alh-01498:33 Request CBC WITH MANUAL DIFF (93999)Indication: Diabetes mellitus type II, controlled On: :29 Request METABOLIC PANEL, COMPREHENSIVE (85821)Indication: Diabetes mellitus type II, controlled On: :29 Request LIPID PANEL (95480)Indication: Mixed hyperlipidemia On: :29 Request CREATININE CLEARANCE (98916)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 On: :45 Request 24 hour urine for Protein (35554)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 On: 9-Sxu-054261:45 Request CREATININE CLEARANCE (95247)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 On: 64-Amt-257031:57 Request 24 hour urine for Protein (61169)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 On: 53-Jqs-519755:57 Request METABOLIC PANEL, COMPREHENSIVE ([id number])Indication: Hypertension, benign On: :32 Request LIPID PANEL (99381)Indication: Mixed hyperlipidemia On: :32 Request C-REACTIVE PROTEIN (97323)Indication: Fatigue On: :24 Request SED RATE ERYTHROCYTE (02803)Indication: Headache On: :24 Request VITAMIN B-12 (CYANOCOBALAMIN) ([id number])Indication: Fatigue On: :24 Request LIPID PANEL (98056)Indication: Mixed hyperlipidemia On: :41 Request CBC WITH MANUAL DIFF ([id number])Indication: Hypertension, benign On: 4-Izs-860122:41 Request METABOLIC PANEL, COMPREHENSIVE (72897)Indication: Hypertension, benign On: 7-Srd-862116:41 Request CREATININE CLEARANCE ([id number])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 On: 5-Vtt-702348:34 Request 24 hour urine for Protein ([id number])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 On: :34 Request LIPID PANEL ([id number])Indication: Mixed hyperlipidemia On: 7-Hlm-762592:22 Request HEPATIC FUNCTION PANEL (57527)Indication: Mixed hyperlipidemia On: 3-Ayp-746595:22 Request Vitamin D Hydroxy (11809)Indication: Hypercalcemia On: 2-Hlj-526921:22 Request PHOSPHORUS ([id number])Indication: Hypercalcemia On: 4-Oda-494641:22 Request PARATHORMONE (44323)Indication: Hypercalcemia On: 2-Afq-232170:22 Request METABOLIC PANEL, COMPREHENSIVE ([id number])Indication: Hypercalcemia On: 1-Cre-363247:22 Request CBC WITH MANUAL DIFF ([id number])Indication: fsgs On: :58 Request LIPID PANEL ([id number])Indication: Mixed hyperlipidemia On: :58 Request METABOLIC PANEL, COMPREHENSIVE (56143)Indication: Hypertension, benign On: :58 Request Blood Glucose , Office (09472)Indication: Diabetes mellitus type II, controlled On: 9-Pxn-896176:10 Request TSH ([id number])Indication: Diabetes mellitus type II, controlled On: 06-Nig-876009:51 Request METABOLIC PANEL, COMPREHENSIVE (62091)Indication: Diabetes mellitus type II, controlled On: 11-Qra-889860:51 Request CBC WITH MANUAL DIFF ([id number])Indication: Diabetes mellitus type II, controlled On: 55-Yaa-245240:51 Request MICROALBUMIN: CREATININE RATIO (12830) AND (87472)Indication: Diabetes mellitus type II, controlled On: 32-Zlf-337386:51 Request HEPATIC FUNCTION PANEL (60708)Indication: Other and unspecified hyperlipidemia On: 47-Xwe-032248:51 Request LIPID PANEL ([id number])Indication: Other and unspecified hyperlipidemia On: 67-Kkf-227618:51 Request HgA1C , Office ([id number])Indication: Diabetes mellitus type II, controlled On: 87-Eeg-804596:37 Request Blood Glucose , Office ([id number])Indication: Diabetes mellitus type II, controlled On: 49-Hmk-425885:37 Request Planned Encounters Medical; [facility] 3 Month FU - On: 22-Mar-2018 11:00 [facility] Fast DO, Chaparrita A Fast DO, Chaparrita A Planned Procedures DRAIN/INJECT MAJOR JOINT OR BURSA On: 13-Mar-2018 Intent ()By: SHONDA Andrade Comments: 2 cc Marcaine lot# [id number] exp: 1 cc Kenalog lot# [id number] exp DRAIN/INJECT MAJOR JOINT OR BURSA On: 07-Feb-2018 Intent ()By: Keri Singh MD Comments: lot no [id number] exp date 2017-12-26 DRAIN/INJECT MAJOR JOINT OR BURSA On: 31-Jan-2018 Intent ()By: Keri Singh MD Comments: Lot#[id number]:2-46-10Yxpmp:intra articular Site given:left knee Given By: Dr. Singh ABN signed DRAIN/INJECT MAJOR JOINT OR BURSA On: 24-Jan-2018 Intent ()By: Keri Singh MD Comments: Lot#[id number]: 2-26-84Qtjbm:intra artciular Site given:left knee Given By: Dr. Singh ABN signed Euflexxa Echo CompleteBy: Fast DO, Chaparrita A On: 16-Dec-2017 Intent Fast DO, Chaparrita A Flu Vaccine (Quadrivalent) [id number]: On: 16-Dec-2017 Intent Fast DO, Chaparrita A Fast DO, Chaparrita A Comments: Lot: [id number]: 10/01/18Site: L dltd, IMDose prefilled syringegiven by: Jamie reviewed and ABN signed Kenalog Injection, 10 mgm On: 03-Oct-2017 Intent (J3301)By: Keri Singh MD Comments: lot: [id number]: 11/20site/route: L knee Cartoid DopplerBy: Fast DO, Chaparrita A On: 12-Sep-2017 Intent Fast DO, Chaparrita A Comments: november DIGITAL TOMOSYNTHESIS OF On: 12-Sep-2017 Intent BREAST ([id number])By: Ambrocio WOLFF Chaparrita A Comments: due november 02 Ambrocio DO, Chaparrita A Kenalog Injection, 10 mgm On: 06-Jun-2017 Intent (J3301)By: Keri Singh MD Comments: bupivacacine 0.5% [id number] exp 09-20 kenalog 40 mg injected in. [id number] 07-21 MRI OF BRAIN WITH AND WITHOUT On: 06-Jun-2017 Intent CONTRAST ([id number])By: Ambrocio WOLFF, Chaparrita A Fast DO, Chaparrita A ELECTROCARDIOGRAM, COMPLETE (ECG) On: 06-Jun-2017 Intent ([id number])By: Chaparrita Albrecht DO A Fast Comments: ekg showed normal sinus rhythym, normal axis, no acute st/t wave changes DO, Chaparrita A INFUSION, NORMAL SALINE SOLUTION , On: 10-May-2017 Intent 1000 CC (Special Coverage Comments: 2 liters total Instructions Apply. See [facility]: 2048) (J7030)By: Fast DO Chaparrita A Fast DO, Chaparrita A INFUSION, NORMAL SALINE SOLUTION , On: 10-May-2017 Intent 1000 CC (Special Coverage Comments: lot:[id number]:IV left anticub dose:1000ml given by:eliazar HUMPHREY signedER, PORTFOLIO ACCOUNTANT Instructions Apply. See [facility]: 2048) (J7030)By: Fast DO Chaparrita A Fast DO, Chaparrita A Radiology - Chest- PA and LatBy: On: 05-May-2017 Intent Keri Singh MD Aerosol Treatment (22292)By: On: 05-May-2017 Intent Keri Singh MD Radiology - ChestBy: Francisco MANN, On: 05-May-2017 Intent Keri Alonzo Comments: call wet read DRAIN/INJECT MAJOR JOINT OR BURSA On: 28-Feb-2017 Intent ()By: Keri Singh MD Comments: 1 cc Kenelog #[id number] cc Marcaine #[id number] Kenalog Injection, 10 mgm On: 28-Feb-2017 Intent (J3301)By: Keri Singh MD ELECTROCARDIOGRAM, COMPLETE (ECG) On: 10-Jan-2017 Intent (95078)By: Case Albrecht DOa Olivia Fast Comments: ekg showed normal sinus rhythym, normal axis, no acute st/t wave changes DO, Chaparrita A Flu Vaccine (Quadrivalent) [id number]: On: 27-Dec-2016 Intent SHONDA Andrade DRAIN/INJECT MAJOR JOINT OR BURSA On: 20-Aug-2016 Intent ()By: Keri Singh MD DRAIN/INJECT MAJOR JOINT OR BURSA On: 13-Aug-2016 Intent ()By: SHONDA Andrade Comments: lot: [id number]:intra articular dose:2ml given by:Dr. Francisco marquesER, PORTFOLIO ACCOUNTANT injection #3 DOPPLER ULTRASOUND OF RIGHT CAROTID On: 10-Aug-2016 Intent ARTERY ([id number])By: Fast DO, Chaparrita A Comments: end october Fast DO, Chaparrita A DEXA SCAN AXIAL SKELETON (08442)By: On: 10-Aug-2016 Intent Fast DO, Chaparrita A Fast DO, Chaparrita A Comments: end october SCREENING DIGITAL TOMOSYNTHESIS OF On: 10-Aug-2016 Intent BREAST ([id number])By: Fast DO, Chaparrita A Comments: end october Fast DO, Chaparrita A DRAIN/INJECT MAJOR JOINT OR BURSA On: 06-Aug-2016 Intent ()By: Keri Singh MD DRAIN/INJECT INTERMED JOINT/BURSA On: 06-Aug-2016 Intent ()By: SHONDA Andrade Comments: lot:[id number]:left knee dose:2mlgiven by:Dr. Francisco HUMPHREY signedER, PORTFOLIO ACCOUNTANT injection number 2 Venous Doppler - LeftBy: Fast DO, On: 03-Aug-2016 Intent Chaparrita A Fast DO, Chaparrita A Comments: This is set up for August 05 at 11am- spoke with Rina in cv. DRAIN/INJECT INTERMED JOINT/BURSA On: 30-Jul-2016 Intent ()By: Keri Singh MD Comments: lot:[id number]:intra articular left knee dose: 2ml given by: Dr. Francisco HUMPHREY signedER, PORTFOLIO ACCOUNTANT injection #1 Radiology - Knee - LeftBy: Fast DO, On: 26-May-2016 Intent Chaparrita A Fast DO, Chaparrita A Flu Vaccine (Quadrivalent) [id number]: On: 27-Jan-2016 Intent Fast DO, Chaparrita A Fast DO, Chaparrita A Comments: Lot #:[id number] date:10/01/16mount given:0.5mlRoute: IMSite given: left deltoidGiven by: CARMELINA Hook ADMINISTRATION OF INFLUENZA VIRUS On: 27-Jan-2016 Intent VACCINE (G0008)By: Fast DO, Chaparrita A Fast DO, Chaparrita A DOPPLER ULTRASOUND OF RIGHT CAROTID On: 22-Oct-2015 Intent ARTERY (10260)By: Fast DO, Chaparrita A Fast DO, Chaparrita A MAMMOGRAM, SCREENING, BOTH BREAST On: 22-Oct-2015 Intent ([id number])By: Chaparrita Albrecht DO A Ambrocio WOLFF Chaparrita A Ultrasound - RenalBy: Ambrocio WOLFF, On: 14-Jul-2015 Intent Chaparrita A Ambrocio DO, Chaparrita A Radiology - Knee - Left - Weight On: 11-Mar-2015 Intent BearingBy: Ambrocio DO, Chaparrita A Fast DO, Chaparrita A Radiology - Knee - Right - Weight On: 11-Mar-2015 Intent BearingBy: Ambrocio WOLFF, Chaparrita A Fast DO, Chaparrita A Flu Vaccine (Quadrivalent) 56885Xd: On: 11-Feb-2015 Intent Ambrocio WOLFF, Chaparrita A Fast DO, Chaparrita A EKG (15163)By: Chaparrita Albrecht DO On: 05-Nov-2014 Intent Ambrocio WOLFF Chaparrita A Comments: ekg showed normal sinus rhythym, normal axis, no acute st/t wave changes left axis DRAIN/INJECT SMALL JOINT OR BURSA On: 07-Oct-2014 Intent ([id number])By: Francisco MANN, Keri Alonzo MAMMOGRAM, SCREENING, BOTH BREAST On: 02-Aug-2014 Intent ([id number])By: Chaparrita Albrecht DO A Ambrocio Comments: september DO Chaparrita A Cartoid DopplerBy: Ambrocio WOLFF Chaparrita A On: 02-Aug-2014 Intent Ambrocio WOLFF Chaparrita A DEXA SCAN AXIAL SKELETON (44952)By: On: 09-Apr-2014 Intent Ambrocio WOLFF Chaparrita A Ambrocio DO, Chaparrita A Prevnar 13 (35084)By: Ambrocio WOLFF, On: 30-Jan-2014 Intent Chaparrita Albrecht DO, Chaparrita A Comments: Lot:[id number]:05/20Dose:0.5Route:imSite:l armGiven By:Jarred signed FLU VAC, SPLIT, >3 YEARS, INTRAMUSC On: 16-Jan-2014 Intent (26919)By: Chaparrita Albrecht DO Comments: Lot #:[id number] date:12/2015Amount given:0.5mlRoute: IMSite given: left deltoidGiven by: CARMELINA Hook DO Chaparrita A ADMINISTRATION OF INFLUENZA VIRUS On: 16-Jan-2014 Intent VACCINE (G0008)By: Case Albrecht DOa A Ambrocio WOLFF, Chaparrita A EKG (62936)By: Fast DO, Chaparrita A On: 17-Oct-2013 Intent Fast DO, Chaparrita A Comments: ekg showed normal sinus rhythym, left axis, no acute st/t wave changes Radiology - Chest- PA and LatBy: On: 17-Sep-2013 Intent Fast DO, Chaparrita A Fast DO, Chaparrita A Aerosol Treatment (01263)By: Ambrocio On: 17-Sep-2013 Intent DO, Chaparrita A Fast DO, Chaparrita A MRI - BrainBy: Fast DO, Chaparrita A On: 22-Jul-2013 Intent Fast DO, Chaparrita A Cartoid DopplerBy: Fast DO, Chaparrita A On: 20-Jul-2013 Intent Fast DO, Chaparrita A MAMMOGRAM, SCREENING, BOTH BREASTS On: 20-Jul-2013 Intent ([id number])By: Fast DO, Chaparrita A Fast DO, Chaparrita A Eprescribed prescriptions On: 20-Jul-2013 Intent (G8553)By: Fast DO, Chaparrita A Fast DO, Chaparrita A Eprescribed prescriptions On: 02-Feb-2013 Intent (G8553)By: Марина Concepcion FLU VAC, SPLIT, >3 YEARS, INTRAMUSC On: 03-Jan-2013 Intent (02035)By: Марина Concepcion Comments: Lot #:[id number] date:mount given:0.5mlRoute: IMSite given: L dltdVIS and ABN signedGiven by: CARMELINA Hook ADMINISTRATION OF INFLUENZA VIRUS On: 03-Jan-2013 Intent VACCINE (G0008)By: Марина Concepcion CT - Abdomen & Pelvis (IV Contrast On: 17-Oct-2012 Intent Needed)By: Ambrocio WOLFF Chaparrita A Ambrocio Comments: patient will be calling to set up DO, Chaparrita A Eprescribed prescriptions On: 10-Oct-2012 Intent (G8553)By: Марина Concepcion Ear Irrigation (20692)By: Rome, On: 13-Jun-2012 Intent Ivy Comments: Ear Irrigation performed on: right earAmount/color removed cerumen: light brown, small amount removedOUtcome:Pt toleratedUsed wax curettes Wax Currettes (28770)By: Rome, On: 13-Jun-2012 Intent Ivy PNEUM VAC ADLT/IMUMNOSPR, SBC/INTRM On: 13-Jun-2012 Intent (23918)By: Chaparrita Albrecht DO A Ambrocio Comments: Lot:[id number]:09/09/13Dose:0.5mLRoute:IMSite:L armGiven By:BHUMI marques DO, Chaparrita A EKG (40592)By: Ambrocio DO Chaparrita A On: 13-Jun-2012 Intent Ambrocio DO, Chaparrita A Comments: ekg showed normal sinus rhythym, normal axis, no acute st/t wave changes MRI - BrainBy: Ambrocio DO, Chaparrita A On: 13-Jun-2012 Intent Fast DO, Chaparrita A Comments: july ADMINISTRATION OF PNEUMOCOCCAL On: 13-Jun-2012 Intent VACCINE (G0009)By: Case Albrecht DOa A Ambrocio DO, Chaparrita A Eprescribed prescriptions On: 13-Jun-2012 Intent (G8553)By: Марина Concepcion MAMMOGRAM, SCREENING, BOTH BREASTS On: 28-Dec-2011 Intent (07801)By: Ambrocio WOLFF Chaparrita A Fast DO, Chaparrita A DXA, BONE DENSITY, AXIAL SKELETON On: 28-Dec-2011 Intent (81091)By: Ambrocio WOLFF Chaparrita A Fast DO, Chaparrita A MRI - BrainBy: Ambrocio DO, Chaparrita A On: 28-Dec-2011 Intent Ambrocio DO, Chaparrita A Comments: end of jan Cartoid DopplerBy: Fast DO, Chaparrita A On: 28-Dec-2011 Intent Fast DO, Chaparrita A Comments: jan Ultrasound - PelvisBy: Ambrocio WOLFF, On: 28-Dec-2011 Intent Chaparrita A Ambrocio DO, Chaparrita A FLU VAC, SPLIT, >3 YEARS, INTRAMUSC On: 28-Dec-2011 Intent (65007)By: Марина Concepcion Comments: Lot #:[id number] date:mount given:0.5mlRoute: IMSite given: left deltoidGiven by: CARMELINA Hook ADMINISTRATION OF INFLUENZA VIRUS On: 28-Dec-2011 Intent VACCINE (G0008)By: Марина Concepcion Aerosol Treatment ([id number])By: Ciesa On: 30-Nov-[address] - Abdomen & PelvisBy: Ambrocio WOLFF, On: 21-Sep-2011 Intent Chaparrita A Fast DO, Chaparrita A Comments: with special cuts through the kidney- october EKG (66481)By: Марина Concepcion On: 15-Jun-2011 Intent Comments: ekg [...] Comments: Call results to Dr. Albrecht @ [phone] as soon as resulted please. DO, Chaparrita A Eprescribed prescriptions On: 11-Jan-2011 Intent (G8553)By: Ambrocio DO, Chaparrita A Fast DO, Chaparrita A MAMMOGRAM, SCREENING, BOTH BREASTS On: 11-Jan-2011 Intent ([id number])By: Ambrocio DO, Chaparrita A Fast DO, Chaparrita A CT - Sinuses CompleteBy: Ambrocio WOLFF, On: 11-Jan-2011 Intent Chaparrita A Fast DO, Chaparrita A Cartoid DopplerBy: Ambrocio DO, Chaparrita A On: 11-Jan-2011 Intent Fast DO, Chaparrita A ADMINISTRATION OF INFLUENZA VIRUS On: 11-Jan-2011 Intent VACCINE (G0008)By: Марина Concepcion FLU VAC, SPLIT, >3 YEARS, INTRAMUSC On: 11-Jan-2011 Intent ([id number])By: Марина Concepcion Eprescribed prescriptions On: 12-Oct-2010 Intent (G8553)By: Fast DO, Chaparrita A Fast DO, Chaparrita A Renal DopplerBy: Fast DO, Chaparrita A On: 12-Oct-2010 Intent Fast DO, Chaparrita A Cartoid DopplerBy: Fast DO, Chaparrita A On: 12-Oct-2010 Intent Fast DO, Chaparrita A Comments: sept TDAP VACCINE >7 IM ([id number])By: On: 13-May-2010 Intent Helena Tineo LPN Comments: Lot #[id number]-2/25/13Site-left deltoidgiven by:TIFFANY EKG (76268)By: Марина Concepcion On: 13-May-2010 Intent Comments: ekg showed normal sinus rhythym, normal axis, no acute st/t wave changes Aerosol Treatment (19782)By: Ciesa On: 22-Dec-2009 Intent Johanna SANZ E Cartoid DopplerBy: Fast DO, Chaparrita A On: 01-Dec-2009 Intent Fast DO, Chaparrita A MAMMOGRAM, SCREENING, BOTH BREASTS On: 01-Dec-2009 Intent ([id number])By: Fast DO, Chaparrita A Fast DO, Chaparrita A DXA, BONE DENSITY, AXIAL SKELETON On: 01-Dec-2009 Intent ([id number])By: Fast DO, Chaparrita A Fast DO, Chaparrita A Ultrasound - SpleenBy: Fast DO, On: 17-Jun-2009 Intent Chaparrita A Fast DO, Chaparrita A EKG (09003)By: Марина Concepcion On: 10-Mar-2009 Intent Comments: ekg showed normal sinus rhythym, normal axis, no acute st/t wave changes FLU VAC, SPLIT, >3 YEARS, INTRAMUSC On: 09-Jan-2009 Intent (31531)By: Stacy Jorge Comments: Lot #[id number]-9/2010Site-left deltoidDose0.5mlgiven by Marycarmen Jorge LPN ADMINISTRATION OF INFLUENZA VIRUS On: 09-Jan-2009 Intent VACCINE (G0008)By: Stacy Jorge MAMMOGRAM, SCREENING, BOTH BREASTS On: 04-Dec-2008 Intent (92189)By: Fast DO, Chaparrita A Fast DO, Chaparrita A MAMMOGRAM, SCREENING, BOTH BREASTS On: 03-Sep-2008 Intent (77139)By: Fast DO, Chaparrita A Fast DO, Chaparrita A FLU VAC, SPLIT, >3 YEARS, INTRAMUSC On: 16-Jan-2008 Intent (93920)By: Janet Scherer RN Comments: Lot #: [id number] date: 09/10Amount given: 0.5 mlRoute: IMSite given: Left deltoidGiven by: Olivia Bell LPN ADMINISTRATION OF INFLUENZA VIRUS On: 16-Jan-2008 Intent VACCINE (G0008)By: Janet Scherer RN EKG (93518)By: Fast DO, Chaparrita A On: 29-Aug-2007 Intent Fast DO, Chaparrita A Comments: done km ADMINISTRATION OF PNEUMOCOCCAL On: 29-Aug-2007 Intent VACCINE (G0009)By: Fast DO, Chaparrita A Fast DO, Chaparrita A PNEUM VAC ADLT/IMUMNOSPR, SBC/INTRM On: 29-Aug-2007 Intent (66117)By: Fast DO, Chaparrita A Fast Comments: 0.5cc given im lt arm [id number] exp 02-13-08 DO, Chaparrita A DXA, BONE DENSITY, AXIAL SKELETON On: 29-Aug-2007 Intent (93161)By: Fast DO, Chaparrita A Fast DO, Chaparrita A MAMMOGRAM, SCREENING, BOTH BREASTS On: 29-Aug-2007 Intent (54684)By: Fast DO, Chaparrita A Fast DO, Chaparrita [...] OTHERWISE SPECIFIED, 10 MG Ordered: 03-Oct-2017 Pending Francisco MANN, Keri Alonzo Instructions Name Dates Details Osteoarthritis of left [...] Indication: Hypertension, benign Encounters Office Visit On: 13-Mar-2018 15:07 Encounter Diagnosis: [...] new people and be involved in the [employer] 0 bps are good and sugar looking [...] supplemental vitamins. The medical issues the patien samantha is following up for include blood sugar issues, cardiac issues, depression (anxiety ), high blood pressure, high cholesterol, kidney problems, osteoporosis/osteopenia and other (DDD ). Note for Martinez mason up for chronic medical issues: she has been working with [employer] and trying to work on that- she got rid of respiratory infection but was sick for weeks and was on pred so her sugar up and chol up a bit- trying to add protein shakes drink more water- she is starting back at [facility]- diarrhea resolved- we did talk about [...] visual acuity (yearly). Note for Physical exam: [facility] Wellness :- a month or so ago she noticed that she had episode where went to [facility] and she couldnt remember where she was- and happened one other time where she didnt recognize the roads- sister had alzheimer s- weight down because was sick- but coming back up- she hasnt done counseling with hospice has been thru before- she lonely- not necessarily unhappy- she doing self help she is singing with [employer]- -rodriguez gars are all in low 100s-130- going to [employer] for a month next monthEncounter Diagnosis: Nonsmoker, [...] Eddie and bp is good she joined [employer] sugar up bit doi ng ice cream-the bone density reviewed little thinner she not exercising routienly until just recent at [employer] and sees kidney doc next week and [...] maribel cordelia in hospice - going to halfway end of month- too much to care [...] visual acuity (yearly). Note for Physical exam: [facility] Wellness Physical- Talk about trying Myrbetriq., [ADDITIONAL REASON] Follow up, Laboratory Test Results - Date: [facility] , [ADDITIONAL REASON] Itching - Symptoms [...] Meningioma (Renamed from 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, 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, BRAIN/DISTRICT SALES MANAGER NEC (794.09)) [facility] [...] Meningioma (Renamed from 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, 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, BRAIN/DISTRICT SALES MANAGER NEC (794.09)), Diabetes, Type II, controlled [...] Meningioma (Renamed from 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, 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, BRAIN/DISTRICT SALES MANAGER NEC (794.09)), Colon Polyp [facility] [...] Meningioma (Renamed from 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, 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, BRAIN/DISTRICT SALES MANAGER NEC (794.09)), OCCLUSION AND STENOSIS OF [...] Meningioma (Renamed from 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, 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, BRAIN/DISTRICT SALES MANAGER NEC (794.09)), Chronic glomerulonephritis with lesion [...] Meningioma (Renamed from 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, 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, BRAIN/DISTRICT SALES MANAGER NEC (794.09)), Other and unspecified hyperlipidemia [...] Meningioma (Renamed from 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, 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, BRAIN/DISTRICT SALES MANAGER NEC (794.09)) [facility] [...] chronic medical issues: she feels lik e krissy has been uplifting and not depressed- went [...] Meningioma (Renamed from 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, 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, BRAIN/DISTRICT SALES MANAGER NEC (794.09)), Gerd (530.81), Hyperlipidemia, Unspecified [...] Meningioma (Renamed from 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, 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, BRAIN/DISTRICT SALES MANAGER NEC (794.09)), Hypertension,benign(401.1), OCCLUSION AND STENOSIS [...] Meningioma (Renamed from 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, 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, BRAIN/DISTRICT SALES MANAGER NEC (794.09)), Diabetes, Type II, controlled [...] Meningioma (Renamed from 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, 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, BRAIN/DISTRICT SALES MANAGER NEC (794.09)), Hypertension,benign(401.1), Osteopenia (733.90), Depression [...] weight down 23 pounds- and trying joined [employer]- she feels well - she increased celexa [...] Meningioma (Renamed from 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, 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, BRAIN/DISTRICT SALES MANAGER NEC (794.09)), Chronic glomerulonephritis with lesion [...] Meningioma (Renamed from 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, 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, BRAIN/DISTRICT SALES MANAGER NEC (794.09)) End: 26-Jan-2011 16:53 [facility] Office Visit On: 19-Jan-2011 14:30 Encounter Diagnosis: brain tumor End: 21-Sep-2011 8:09 [facility] Phone Encounter On: 19-Jan-2011 13:41 Encounter Diagnosis: 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, 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, BRAIN/DISTRICT SALES MANAGER NEC (794.09) End: 19-Jan-2011 13:44 Comprehensive [...] pressure-- [facility]: Diabetes, Type II, controlled (250.00), Degenerative [...] (V04.81), Degenerative Disc Disease - Lumbar (722.52), [facility] Office Visit On: 06-Dec-2007 [...] Disease - Lumbar (722.52), Osteopenia (733.90), Hypertension,benign(401.1), [facility] Internal Medicine Historical Summary On: 30-Aug-2007 10:38 [...] WITH RADICULOPATHY (724.4) [facility] Payers MedicareAARP/NERY ALBERT; a guarantor
--- OUTSIDE RECORDS SUMMARY | 2018-06-25 21:48 | XMS RPT_ITS | Continuity of Care Document ---
:1940 Author Organization [facility] Address [address] [place] [address] Phone Care Team Providers Name Role Phone [...] Knee pain, unspecified laterality (719.46) Comments: Valorie:lot: [id number]: 09/20site/route: L knee Status: Active Leg pain, [...] spray daily for 0 days Quantity: 1 {[place]} Refills: 0 Ordered:04-May-2016 SHONDA Andrade Start : [...] qd for 0 days Refills: 0 Ordered:04-Dec-2008 Amrbocio WOLFFCaseolivia ENGLEkaren DO Chaparrita A Start : [...] and dispense 8 ounes TOTAL mixed solutionCal [id number] if questions SPECTAZOLE, 1% (External Cream) 1 [...] called to [facility] 08-30-14 [facility] Allergies and Adverse Reactions Name Dates [...] Meningioma (Renamed from 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, 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, BRAIN/VIDEO SOFTWARE ENGINEER NEC) (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 2016 right Cholecystectomy Completed lumbar cimcof==6341 Completed Tonsillectomy Completed Date Value Details 19-Dec-2017 Echocardiogram Complete Result: Comments: See Note; NOTES: [facility] Cardiovascular Services [address] [place] [address] Echo Complete 12/19/17 0800 MR#: [id number] Acct: [id number] Name: CLARENCE ALBERT ep #: [id number] : 1940 77 From: Chuckie Cormier MD Attending Dr: Chaparrita Albrecht DO Status: REG CLI Ordering Dr: Chaparrita Albrecht DO Date: 12/19/17 Location: [facility] Sex: F C Admitted: [...] Dictated: 12/19/17 0800 Date Transcribed: 12/19/17 1022 Repeater Operator: Signed 07-Dec-2017 Carotid Duplex Ultrasound Result: Comments: See Note; NOTES: [facility] Cardiovascular Services [address] [place] [address] Carotid Duplex Ultrasound 12/06/17 0901 MR#: [id number] Acct: [id number] Name: CLARENCE WHITTINGTON Rep #: [id number] : 1940 77 From: Anurag Loya MD [...] the left vertebral artery. Procedure Carotid Duplex 89657. Exam performed in department. Interpretation Summary Mild (<50%) stenosis right extracranial internal carotid. Mild (<50%) stenosis left extracranial internal carotid. Flow within the vertebral arteries is antegrade bilaterally. __ __ Ordering Physician: Chaparrita Albrecht Performed By: Margot Benton RVT and Student 12/07/17 0809 Date Anurag Loya MD CC: Chaparrita Albrecht DO Date Dictated: 12/06/17900 Date Transcribed: 12/07/17808 Repeater Operator: Signed 06-Dec-2017 SCREENING MAMM (CAD), BILAT Result: Comments: See Note; NOTES: [facility] Imaging Services [address] [place] [address] SCREENING MAMM (CAD), BILAT MR#: [id number] Acct: [id number] Name: CLARENCE ALBERT Rep #: [id number] : 1940 F 77 From: Misael Hebert MD PCP: Chaparrita Albrecht DO Status: REG CLI Study: SCREENING MAMM (CAD), BILAT Date of Exam: 12/06/17 Exam# [id number] Ordering Dr: Chaparrita Albrecht DO MAMM OGRAPHY [...] delay biopsy of a clinically suspicious abnormality. [id number] Electronically Signed: Misael Hebert MD at 15:31 EDT Tel [phone], Se rvice support , CC: Chaparrita Albrecht DO Repeater Operator: Signed 10-Jun-2017 Brain W/WO Contrast Result: Comments: See Note; NOTES: [facility] Imaging Services [address] [place] [address] Brain W/WO Contrast MR#: [id number] Acct: [id number] Name: CLARENCE ALBERT Rep #: [id number] : 1940 F 77 From: Laya Montilla MD PCP: Chaparrita Albrecht DO Status: REG CLI Study: Brain W/WO Contrast Date of Exam: 06/10/17 Exam# [id number] Ordering Dr: Chaparrita Albrecht DO STUDY: MRI [...] Service support , CC: Chaparrita Albrecht DO Repeater Operator: Signed 05-May-2017 Chest PA and Lateral Result: Comments: See Note; NOTES: [facility] Imaging Services [address] [place] [address] Chest PA and Lateral MR#: [id number] Acct: [id number] Name: CLARENCE ALBERT Rep #: [id number] : 1940 F 77 From: Edwar Patino MD PCP: Chaparrita Albrecht DO Status: REG CLI Study: Chest PA and Lateral Date of Exam: 05/05/17 Exam# [id number] Ordering Dr: Keri Singh MD STUDY: X-RAY [...] CC: Keri Singh MD; Chaparrita Albrecht DO Repeater Operator: Signed 02-Nov-2016 Dexa Bone Density Study (HP) Result: Comments: See Note; NOTES: [facility] Imaging Services [address] [place] [address] Verdana 4d Dexa Bone Density Study (HP) MR#: [id number] Acct: [id number] Name: LYNNE ALBERT Rep #: [id number] : 1940 F 76 From: Misael Hebert MD PCP: Chaparrita Albrecht DO Status: REG CLI Study: Dexa Bone Density Study (HP) Date of Exam: 11/02/16 Exam# [id number] Ordering Dr: Laura DO STUDY: DUAL ENERGY [...] Misael Hebert MD at 11:02 EDT Tel [phone], Service support , CC: Chaparrita Albrecht DO Repeater Operator: Signed 02-Nov-2016 SCREENING MAMM (CAD), BILAT Result: Comments: See Note; NOTES: [facility] Imaging Services [address] [place] [address] Verdana 4d SCREENING MAMM (CAD), BILAT MR#: [id number] Acct: [id number] Name: CLARENCE ALBERT Rep #: [id number] : 1940 F 76 From: Misael Hebert MD PCP: Chaparrita Albrecht DO Status: REG CLI Study: SCREENING MAMM (CAD), BILAT Date of Exam: 11/02/16 Exam# [id number] Ordering Dr: Case Albrecht DO MAMMOGRAPHY - [...] delay biopsy of a clinically suspicious abnormality. [id number] Electronically Signed: Misael Hebert MD at 12:44 EDT Tel [phone], Service support , CC: Chaparrita Albrecht DO Repeater Operator: Signed 05-Aug-2016 Venous Duplex Lower Extremity Result: Comments: See Note; NOTES: [facility] Cardiovascular Services [address] [place] [address] Venous Duplex US, Unilateral 08/05/16 1053 MR#: [id number] Acct: [id number] Name: CLARENCE WEI Rep #: [id number] : 1940 76 From: Elvin Natarajan MD [...] Dictated: 08/05/16 1053 Date Transcribed: 08/05/16 1127 Repeater Operator: Signed 27-May-2016 Knee 4 or More Views Result: Comments: See Note; NOTES: [facility] Imaging Services [address] [place] [address] Verdana 4d Knee 4 or More Views MR#: [id number] Acct: [id number] Name: CLARENCE ALBERT Rep #: [id number] : 1940 F 76 From: Misael Hebert MD PCP: Chaparrita Albrecht DO Status: REG CLI Study: Knee 4 or More Views Date of Exam: 05/27/16 Exam# [id number] Ordering Dr: Kylah Linda DO UDY: X-RAY [...] MD at 10:41 EST , Service support [phone], CC: Chaparrita Albrecht DO; Kylah Linda DO Repeater Operator: Signed 13-May-2016 Sinus/Facial Bone Result: Comments: See Note; NOTES: [facility] Imaging Services [address] [place] [address] Verdana 4d Sinus/Facial Bone MR#: [id number] Acct: [id number] Name: CLARENCE ALBERT Rep #: [id number] : 1940 F 76 From: Godwin Winter MD PCP: Chaparrita Albrecht DO Status: REG CLI Study: Sinus/Facial Bone Date of Exam: 05/13/16 Exam# [id number] Ordering Dr: Alejandro Silverman MD STUDY: CT [...] is stable in size. Electronically Signed: Godwin Wniter MD at 7:35 EST , Service support [phone], CC: Chaparrita Albrecht DO; Alejandro Silverman MD Repeater Operator: Signed 21-Apr-2016 Emergency Department Summary Result: Comments: See Note; NOTES: [facility] Medical Records Department [address] [place] [address] Emergency Department Summary MR#: [id number] Acct: [id number] Name: CLARENCE ALBERT Rep #: [id number] : 1940 76 From: Carissa Murphy MD [...] epistaxis. CARISSA MURPHY MD T: NTS JOB: [id number] 04/21/16 0806 <Electronically signed by Carissa Murphy MD> Date Carissa donovan MD Cosigner Signature (If Indicated): Date CC: Chaparrita Albrecht DO Date Dictated: 04/20/161711 Date Transcribed: 04/20/161711 Repeater Operator: Signed 20-Apr-2016 Discharge Instruction Result: Comments: See Note; NOTES: [facility] Medical Records Department [address] [place] [address] Discharge Instruction 04/20/16 1303 MR#: [id number] Acct: [id number] Name: CLARENCE ALBERT Rep #: [id number] : 1940 76 From: Carissa Murphy MD [...] your Primary Care Provider. Call [facility] ([phone]) or report to the closest Emergency Room. Call 911 if necessary. 04/20/16 6704 <Electronically signed by Carissa Murphy MD> Date Carissa Murphy MD Cosigner Signature (If I ndicated): Date CC: Chaparrita Albrecht DO 02-Nov-2015 Carotid Duplex Ultrasound Result: Comments: See Note; NOTES: [facility] Cardiovascular Services [address] [place] [address] Carotid Duplex Ultrasound 10/30/15 1100 MR#: [id number] Acct: [id number] Name: CLARENCE ALBERT Rep #: [id number] : 1940 75 From: Elvin Natarajan MD Attending Dr: Chaparrita Albrecht DO Status: REG CLI Ordering Dr: Chaparrita Albrecht DO Date: 10/30/15 Location: [facility] Sex: F C Adm [...] the left vertebral artery. Procedure Carotid Duplex 27202. The exam was diagnostic. Exam performed in [...] Dictated: 10/30/15 1100 Date Transcribed: 11/02/15 1143 Repeater Operator: Signed 30-Oct-2015 Bilat Scrn Digital AND CAD Result: Comments: See Note; NOTES: [facility] Imaging Services [address] [place] [address] Verdana 4d Bilat Scrn Digital AND CAD MR#: [id number] Acct: [id number] Name: CLARENCE ALBERT Rep #: [id number] : 1940 F 75 From: Andres Brady MD PCP: Chaparrita Albrecht DO Status: REG CLI Study: Bilat Scrn Digital AND CAD Date of Exam: 10/30/15 Exam# [id number] Ordering Dr: Chaparrita Albrecht DO MAMMOGRAPHY - [...] biop sy of a clinically suspicious abnormality. [id number] Electronically Signed: Andres Brady MD at 17:48 EDT Tel , Service support [phone], CC: Chaparrita Albrecht DO Repeater Operator: Signed 30-Oct-2015 Bilat Scrn Digital AND CAD Result: Comments: See Note; NOTES: [facility] Imaging Services [address] [place] [address] Verdana 4d Bilat Scrn Digital AND CAD MR#: [id number] Acct: [id number] Name: CLARENCE ALBERT Rep #: [id number] : 1940 F 75 From: Andres Brady MD PCP: Chaparrita Albrecht DO Status: REG CLI Study: Bilat Scrn Digital AND CAD Date of Exam: 10/30/15 Exam# [id number] Ordering Dr: Chaparrita Albrecht DO MAMMOGRAPHY - [...] abnormalities are identified. CC: Chaparrita Albrecht DO Repeater Operator: Signed 22-Oct-2015 ELECTROCARDIOGRAM, COMPLETE (ECG) (53804) Comments: ekg showed normal sinus rhythym, normal axis, no acute st/t wave changes no change Result: [MEASUREMENTS ANALYSIS] Date of Test: 10/22/2015 14:41:29; Heart Rate: 71; [place] Interval: 140; QRS: 94; QT Interval: 384; Corrected QT Interval (QTc): 403; P Wave [place]: 58; QRS Wave [place]: -3; T Wave [place]: 56; Blood Pressure: 128/76 [ECG DIAGNOSTIC STATEMENTS] Date of Test: 10/22/2015 14:41:29; Summary: Sinus Rhythm Low voltage -possible pulmonary disease. ABNORMAL 22-Jul-2015 Kidney and Bladder Result: Comments: See Note; NOTES: [facility] Imaging Services [address] [place] [address] Verdana 4d Kidney and Bladder MR#: [id number] Acct: [id number] Name: Yaniv ALBERT Rep #: [id number] : 1940 F 75 From: Nir Sanchez MD PCP: Chaparrita Albrecht DO Status: REG CLI Study: Kidney and Bladder Date of Exam: 07/22/15 Exam# [id number] Ordering Dr: Chaparrita Albrecht DO STUDY: RENAL [...] Service support , CC: Chaparrita Albrecht DO Repeater Operator: Signed 11-Mar-2015 Knee 4 or More Views Result: Comments: See Note; NOTES: [facility] Imaging Services [address] [place] [address] Verdana 4d Knee 4 or More Views MR#: [id number] Acct: [id number] Name: CLARENCE ALBERT Rep #: [id number] : 1940 F 74 From: Trent Cameron DO PCP: Chaparrita Albrecht DO Status: REG CLI Study: Knee 4 or More Views Date of Exam: 03/11/15 Exam# [id number] Ordering Dr: Case Albrecht DO STUDY: X-RAY [...] at 7:45 EST Tel , Service support [phone], RAD/Knee 4 or More Views IMPRESSION: Degener ative changes within the knee. No acute fracture. Small suprapatellar effusion. Electronically Signed: Trent Cameron DO at 7:45 EST Tel , Service support [phone], CC: Chaparrita Albrecht DO Repeater Operator: Signed 11-Mar-2015 Knee 4 or More Views Result: Comments: See Note; NOTES: [facility] Imaging Services [address] [place] [address] Verdana 4d Knee 4 or More Views MR#: [id number] Acct: [id number] Name: CLARENCE ALBERT Rep #: [id number] : 1940 F 74 From: Trent Cameron DO PCP: Chaparrita Albrecht DO Status: REG CLI Study: Knee 4 or More Views Date of Exam: 03/11/15 Exam# [id number] Ordering Dr: Case Albrecht DO STUDY: X-RAY [...] at 7:46 EST Tel , Service support [phone], RAD/Knee 4 or More Views IMPRESSION: Mild degenerative changes. No acute bony abnormality. Electronically Signed: Trent Cameron DO at 7:46 EST Tel , Service support [phone], CC: Chaparrita Albrecht DO Repeater Operator: Signed 18-Oct-2014 Carotid Duplex Ultrasound Result: Comments: See Note; NOTES: [facility] Cardiovascular Services [address] [place] [address] Carotid Duplex Ultrasound 10/18/14 1331 MR#: [id number] Acct: [id number] Na me: CLARENCE ALBERT Rep #: [id number] : 1940 74 From: Elvin Natarajan MD [...] the left vertebral artery. Procedure Carotid Duplex 71419. The exam was diagnostic. Exam performed in [...] Dictated: 10/18/14 1331 Date Transcribed: 10/18/14 1616 Repeater Operator: Signed 18-Oct-2014 Bilat Scrn Digital AND CAD Result: Comments: See Note; NOTES: [facility] Imaging Services [address] [place] [address] Breast Imaging Report MR#: [id number] Acct: [id number] Name: CLARENCE ALBERT Rep #: [id number] : 1940 F 74 From: Misael Hebert MD PCP: Chaparrita Albrecht DO Status: REG CLI Study: Saad Jaffe Digital AND CAD Date of Exam: 10/18/14 Exam# [id number] Ordering Dr: Chaparrita Albrecht DO MAMMOGRAPHY - [...] Misael redmond MD at 13:44 EDT Tel [phone], Service support [phone], CC: Chaparrita Albrecht DO Repeater Operator: Signed 09-Jul-2014 Dexa Bone Density Study (HP) Result: Comments: See Note; NOTES: [facility] Imaging Services [address] [place] [address] Bone Density Report MR#: [id number] Acct: [id number] Name: CLARENCE ALBERT Rep #: [id number] : 1940 F 74 From: Misael Hebert MD PCP: Chaparrita Albrecht DO Status: [facility] CLI Study: Dexa Bone Density Study (HP) Date of Exam: 07/09/14 Exam# [id number] Ordering Dr: Chaparrita Albrecht DO STUDY: DUAL [...] Angel Hebert MD at 14:55 EDT Tel [phone], Service support [phone], CC: Chaparrita Albrecht DO Repeater Operator: Signed 17-Sep-2013 Chest PA and Lateral Result: Comments: See Note; NOTES: [facility] Imaging Services [address] [place] [address] Radiology Report MR#: [id number] Acct: [id number] Name: CLARENCE ALBERT Rep #: [id number] : 1940 F 73 From: David Bennett MD PCP: Chaparrita Albrecht DO Status: REG CLI Study: Chest PA and Lateral Date of Exam: 09/17/13 Exam# [id number] Ordering Dr: Chaparrita Albrecht DO STUDY: X-RAY [...] MD at 20:44 EDT , Service support [phone], RAD/Chest PA and Lateral IMPRESSION: No focal infiltrate or edema. Electronic ally Signed: David Bennett MD at 20:44 EDT , Service support [phone], CC: Chaparrita Albrecht DO Repeater Operator: Signed 17-Sep-2013 Spirometry (37907) Result: 29-Aug-2013 Carotid Duplex Ultrasound Result: Comments: See Note; NOTES: [facility] Cardiovascular Services [address] [place] [address] Carotid Duplex Ultrasound 08/24/13 0939 MR#: [id number] Acct: [id number] Chalo e: CLARENCE ALBERT Rep #: [id number] : 1940 73 From: Anurag Loya MD [...] in the left bulb. Procedure Carotid Duplex 65661. Exam perfor med in department. Interpretation Summary Mild (<50%) stenosis right extracranial internal carotid. Mild (<50%) stenosis left extracranial internal carotid. Flow within the vertebra l arteries is antegrade bilaterally. Ordering Physician: Chaparrita Albrecht Performed By: Kendal Benton RVT : Chaparrita Albrecht DO Date Dictated: 08/24/13 0939 Date Transcribed: 08/29/13 1118 Repeater Operator: Signed Immunization Name Dates Details Influenza (3 years and up) on: 16-Jan-2008 Comments: Lot #: [id number] date: 09/10Amount given: 0.5 mlRoute: IMSite given: Left deltoidGiven by: Olivia Bell LPN Influenza (3 years and up) on: 09-Jan-2009 Comments: Lot #[id number]-left deltoidDose0.5mlgiven by Marycarmen Jorge LPN Pneumococcal (2 years and up) on: 29-Aug-2007 Comments: 0.5cc given im lt arm [id number] exp 02-13-08 Family History Unknown Family Member [...] Arm; Cuff Size: Large Height 63 in 76-Tfp-561570:01 Temperature 98.3 f Comments: Method: Oral Pulse [...] copy of this report has been sent [phone].PATIENT WAS FASTINGPERFORMED BY: LabCoC[facility] CenterPdigbp1462 [facility] [id number] Alb/Creat Ratio 4475.5 {mg/g_creat} (Abnormal) Range: 0.0-30.0 Comments: Normal: 0.0 - 30.0 Albuminuria: 31.0 - 300.0 Clinical albuminuria: >300.0 Albumin, Urine 2085.6 ug/mL (Normal) Comments: Results confirmed ondilution. Creatinine, Urine 46.6 mg/dL (Normal) :33 CBC With Differential/Platelet Comments: A courtesy copy of this report has been sent [phone].PATIENT WAS FASTINGPERFORMED BY: [employer] Lhytwc9384 [address] [place] [id number] Information: ADD CBC Immature Grans (Abs) 0.0 [...] copy of this report has been sent [phone].PATIENT WAS FASTINGPERFORMED BY: [facility] Euprhg4824 [facility] [place] [id number] :33 Range: 1.6-2.3 :33 Microscopic Examination Comments: A courtesy copy of this report has been sent [phone].PATIENT WAS FASTINGPERFORMED BY: [facility] Bepwxh0904 [facility] CenterD[facility] [place] [id number] Bacteria Few (Normal) Mucus Threads Present (Normal) Epithelial Cells (non 0-10 {/hpf} Range: 0 - 10 renal) (Normal) RBC 0-2 {/hpf} (Normal) Range: 0 - 2 WBC 0-5 {/hpf} (Normal) Range: 0 - 5 : PTH, Intact 29 pg/mL (Normal) Comments: A courtesy copy of this report has been sent [phone].PATIENT WAS FASTINGPERFORMED BY: [facility] Centerlin6370 [facility] InstituteDublin [place] [id number] 33 Range: 15-65 :33 Renal Panel (10) Comments: A courtesy copy of this report has been sent [phone].PATIENT WAS FASTINGPERFORMED BY: [facility] Ywtapr8927 [facility] CenterD[facility] [place] [id number] Phosphorus 4.0 mg/dL (Normal) Range: 2.5-4.5 :33 Vitamin D Hydroxy (01898) Comments: A courtesy copy of this report has been sent [phone].PATIENT WAS FASTINGPERFORMED BY: [facility] Ftxhwj7029 [facility] CenterD[facility] [place] [id number] Vitamin D, 25-Hydroxy 36.8 ng/mL (Normal) Range: 30.0-100.0 Comments: Vitamin D deficiency has been defined by the [place] of[place]icine and an Endocrine Society practice guideline as alevel of serum 25-OH vitamin D less than 20 ng/mL (1,2).The Endocrine Society went on to further define vitamin Dinsufficiency as a level between 21 and 29 ng/mL (2).1. IOM ([place] of Medicine). 2010. Dietary reference intakes for calcium and D. [place]: The National Academies Press.2. Holick MF, Rosette LOPEZ, Tommy SWAIN, et al. Evaluation, treatment, and prevention of vitamin D deficiency: an Endocrine Society clinical practice guideline. JCEM. 2010; 96(7):1911-30. :33 URINALYSIS, W/ MICRO (22952) Comments: A courtesy copy of this report has been sent [phone].PATIENT WAS FASTINGPERFORMED BY: [facility] Transfer TechnologiesCape [facility] Medical CenterHbnuwz1673 [facility] [id number] Microscopic Examination See below: (Normal) Comments: Microscopic was indicated and was performed. Nitrite, Urine Negative (Normal) Urobilinogen,Semi-Qn 0.2 mg/dL (Normal) Range: 0.2-1.0 Bilirubin Negative (Normal) Occult Blood Negative (Normal) Ketones Negative (Normal) Glucose Negative (Normal) Protein 3+ (Abnormal) WBC Esterase Negative (Normal) Appearance Clear (Normal) Urine-Color Yellow (Normal) pH 5.5 (Normal) Range: 5.0-7.5 Specific [place] 1.012 (Normal) Range: 1.005-1.030 :33 LIPID PANEL (78898) Comments: A courtesy copy of this report has been sent [phone].PATIENT WAS FASTINGPERFORMED BY: Spin Transfer TechnologiesCape [facility] Medical CenterAssjcb2397 [facility] [id number] LDL/HDL Ratio 1.4 {ratio} (Normal) Range: 0.0-3.2 [...] copy of this report has been sent [phone].PATIENT WAS FASTINGPERFORMED BY: [facility]6370 [facility] [id number] (06745) ALT (SGPT) 11 [iU]/L (Normal) Range: 0-32 [...] 8-27 Glucose 162 mg/dL (Abnormal) Range: 65-99 85-Ooz-239071:24 HgA1C , Office (93415) HgA1C , Office 6.5 % (Normal) Range: 4.6 - 7.1 :33 HGB A1C (94751) Comments: A courtesy copy of this report has been sent [phone].PATIENT WAS FASTINGPERFORMED BY: [facility]6370 [facility] [id number] Hemoglobin A1c 6.3 % (Abnormal) Range: 4.8-5.6 Comments: . Prediabetes: 5.7 - 6.4 Diabetes: >6.4 Glycemic control for adults with diabetes: <7.0 :14 LIPID PANEL (23472) Comments: PATIENT WAS FASTINGPERFORMED BY: [employer] [facility] [id number] LDL/HDL Ratio 1.1 {ratio} (Normal) Range: 0.0-3.2 [...] (Normal) Range: 100-199 :14 Vitamin D Hydroxy (54005) Comments: PATIENT WAS FASTINGPERFORMED BY: [employer]70 [facility] [id number] Vitamin D, 25-Hydroxy 37.8 ng/mL (Normal) Range: 30.0-100.0 Comments: Vitamin D deficiency has been defined by the [place] of[place]icine and an Endocrine Society practice guideline as alevel of serum 25-OH vitamin D less than 20 ng/mL (1,2).The Endocrine Society went on to further define vitamin Dinsufficiency as a level between 21 and 29 ng/mL (2).1. IOM ([place] of Medicine). 2010. Dietary reference intakes for calcium and D. [place]: The National Academies Press.2. Mira MF, Rosette [place], Tommy SWAIN, et al. Evaluation, treatment, and prevention of vitamin D deficiency: an Endocrine Society clinical practice guideline. JCEM. 2010; 96(7):1911-30. :14 CBC with auto diff (08310) Comments: PATIENT WAS FASTINGPERFORMED BY: [employer] Xonbsg0850 [facility] [id number] Immature Grans (Abs) 0.0 {x10E3/uL} (Normal) Range: [...] PANEL, COMPREHENSIVE Comments: PATIENT WAS FASTINGPERFORMED BY: LabCoC[facility] Medical CenterNrufgj5959 [facility] [id number] (35870) ALT (SGPT) 10 [iU]/L (Normal) Range: 0-32 [...] 8-27 Glucose 142 mg/dL (Abnormal) Range: 65-99 81-Wpa-78930:40 MICROALBUMIN: CREATININE RATIO Comments: PATIENT WAS FASTINGPERFORMED BY: [facility]EC[facility] [id number] (53812) AND (19570) Alb/Creat Ratio 4213.3 {mg/g_creat} (Abnormal) Range: 0.0-30.0 Albumin, Urine 3206.3 ug/mL (Normal) Comments: Results confirmed ondilution. Creatinine, Urine 76.1 mg/dL (Normal) 46-Ecw-56076:40 CBC & PLATELETS (AUTO) (73498) Comments: please fax to Dr. Austin- [phone]; PATIENT WAS FASTINGPERFORMED BY: [employer]6370 [facility]VTECU [facility] [id number] Platelets 148 {x10E3/uL} (Abnormal) Range: 150-379 RDW [...] PANEL Comments: please fax to Dr. Austin- [phone]; PATIENT WAS FASTINGPERFORMED BY: [facility]aMiL[facility] [id number] Information: 160699,V59075 FX DR. SANTANA (19099) Albumin 3.1 g/dL (Abnormal) Range: 3.5-4.8 Phosphorus [...] 133 mg/dL (Abnormal) Range: 65-99 :40 MAGNESIUM (99706) Comments: please fax to Dr. Austin- [phone]; PATIENT WAS FASTINGPERFORMED BY: [employer]6370 [employer] [place] [id number] Magnesium 1.9 mg/dL (Normal) Range: 1.6-2.3 :40 CALCIFEDIOL (03805) Comments: please fax to Dr. Austin- [phone]; PATIENT WAS FASTINGPERFORMED BY: Whistlestop70 [facility] [id number] Vitamin D, 25-Hydroxy 29.4 ng/mL (Abnormal) Range: 30.0-100.0 Comments: Vitamin D deficiency has been defined by the [place] of[place]icine and an Endocrine Society practice guideline as alevel of serum 25-OH vitamin D less than 20 ng/mL (1,2).The Endocrine Society went on to further define vitamin Dinsufficiency as a level between 21 and 29 ng/mL (2).1. IOM ([place] of Medicine). 2010. Dietary reference intakes for calcium and D. [place]: The National Academies Press.2. Mira MF, Rosette LOPEZ, Tommy SWAIN, et al. Evaluation, treatment, and prevention of vitamin D deficiency: an Endocrine Society clinical practice guideline. JCEM. 2010; 96(7):1911-30. :40 PARATHORMONE (43751) Comments: please fax to Dr. Austin- [phone]; PATIENT WAS FASTINGPERFORMED BY: [facility]CoC[facility] CenterPjqawb2760 [facility] [id number] PTH, Intact 22 pg/mL (Normal) Range: 15-65 :30 COLON BIOPSY (CHOOSE See Note (Normal) Comments: [facility] Zdteuzkmjo4303 [facility] [place], [address] SITE) Comments: Patient: CLARENCE ALBERT : 1940 (77/F) Acct Num: [id number] Phys: Marcus Caldera Unit Num: [id number] Loc: [facility] Specimen: [id number] Received: 09/16/171528 Spec Type: C OLON BX [...] one cassette. / MARCY:dustin 09/19/17 TC:1 CPT: 86225 x2 HEADER OPERATION: Colonoscopy PRE-OP DIAGNOSIS: History of polyps TISSUE SUBMITTED: A Proximal sigmoid polyp, rule out adenoma, B Transversecolon, rule out adenoma MICROSCOPIC DESCRIPTION Slides are reviewed. M ICROSCOPIC DIAGNOSIS A. Proximal sigmoid polyp, biopsy: Fragments of tubular adenoma. B. Transverse colon polyp, biopsy: Fragments of tubular adenoma. SJ:dustin 09/20/17 Signed _ Nacho Ardon 09/20/17 <signature on file> 95-Nvv-51401:24 METABOLIC PANEL, COMPREHENSIVE Comments: PATIENT NOT FASTINGPERFORMED BY: [facility]CoC[facility] CenterAlzwir9230 [facility] [id number] (22016) ALT (SGPT) 14 [iU]/L (Normal) Range: 0-32 [...] (Abnormal) Range: 65-99 :07 HgA1C , Office (55213) HgA1C , Office 7.2 % (Abnormal) Range: 4.6 - 7.1 :37 Clostridium difficile Toxin Comments: PATIENT NOT FASTINGPERFORMED BY: [employer]store [facility] Ihsluz3510 [place] [id number] A+B, EIA (09331) C difficile Toxins A+B, EIA Negative (Normal) :37 LEUKOCYTE COUNT, FECAL (61068) Comments: PATIENT NOT FASTINGPERFORMED BY: [facility] [facility] Ctzhrj4981 [place] [facility] [id number] Result 1 NWBC (Normal) Comments: No white blood cells seen. White Blood Cells (WBC), Final report (Normal) Stool :37 OVA & PARASITE DIR SMEAR Comments: PATIENT NOT FASTINGPERFORMED BY: Motoratorrp Jyaaqf7066 [place] [facility] [id number] (06226) Result 1 NOCP (Normal) Comments: No ova, cysts, or parasites seen. Ova + Parasite Exam Final report (Normal) Comments: These results were obtained using wet preparation(s) and trichromestained smear. This test does not include testing for Cryptosporidiumparvum, Cyclospora, or Microsporidia. :37 SETH CULTURE-STOOL (01282) Comments: PATIENT NOT FASTINGPERFORMED BY: Motorator Wetnta6211 [facility] [id number] Information: SRC:ST SRC:ST E coli Shiga Toxin EIA Negative (Normal) Result 1 NCI (Normal) Comments: No Campylobacter species isolated. Campylobacter Culture Final report (Normal) Result 1 NSS (Normal) Comments: No Salmonella or Shigella recovered. Salmonella/Shigella Screen Final report (Normal) :06 Renal function Panel Comments: fax copy to Dr. Santana [phone]; A courtesy copy of this report has been sent [phone].PATIENT NOT FASTINGPERFORMED BY: [facility]6370 [facility] [id number] Information: NURSE DRAW (96160) Albumin 3.5 g/dL (Normal) Range: 3.5-4.8 Phosphorus [...] copy of this report has been sent [phone].PATIENT NOT FASTINGPERFORMED BY: 24SymbolsMym[facility] Gladwin6370 [facility] [id number] :02 Range: 15-65 Vitamin D, 25-Hydroxy 34.7 ng/mL (Normal) Comments: A courtesy copy of this report has been sent [phone].PATIENT NOT FASTINGPERFORMED BY: [facility]6370 [facility] [id number] :02 Range: 30.0-100.0 Comments: Vitamin D deficiency has been defined by the [place] of[place]icine and an Endocrine Society practice guideline as alevel of serum 25-OH vitamin D less than 20 ng/mL (1,2).The Endocrine Society went on to further define vitamin Dinsufficiency as a level between 21 and 29 ng/mL (2).1. IOM ([place] of Medicine). 2010. Dietary reference intakes for calcium and D. [place]: The National Academies Press.2. Mira MF, Rosette NC, Tommy SWAIN, et al. Evaluation, treatment, and prevention of vitamin D deficiency: an Endocrine Society clinical practice guideline. JCEM. 2010; 96(7):1911-30. 7-Dla-667281:02 MICROALBUMIN: CREATININE RATIO Comments: send results to Dr. Santana fax: [phone]; A courtesy copy of this report has been sent [phone].PATIENT NOT FASTINGPERFORMED BY: [employer]6370 [employer] [place] [id number] (63075) AND (61089) Alb/Creat Ratio 4191.2 {mg/g_creat} (Abnormal) Range: 0.0-30.0 Albumin, Urine 2380.6 ug/mL (Normal) Comments: Results confirmed ondilution. Creatinine, Urine 56.8 mg/dL (Normal) 5-Okk-181288:02 CBC, PLATELETS & MANUAL Comments: send results to Dr. Santana fax: [phone]; A courtesy copy of this report has been sent [phone].PATIENT NOT FASTINGPERFORMED BY: [employer]6370 SimpliVTOMNIlife science [place] [id number] Information: VIT D25, PTH DIFF (95784) Immature Grans (Abs) 0.0 {x10E3/uL} (Normal) Range: [...] 3.77-5.28 WBC 5.4 {x10E3/uL} (Normal) Range: 3.4-10.8 1-Zxc-700426:02 MAGNESIUM (79549) Comments: send results to Dr. Santana fax: [phone]; A courtesy copy of this report has been sent [phone].PATIENT NOT FASTINGPERFORMED BY: [employer]6370 [place] [facility] [id number] Magnesium, Serum 1.8 mg/dL (Normal) Range: 1.6-2.3 7-Jgw-546290:02 RENAL FUNCTION PANEL (86199) Comments: send results to Dr. Santana fax: [phone]; A courtesy copy of this report has been sent [phone].PATIENT NOT FASTINGPERFORMED BY: MotoratorCape Regional Medical CenterHixige6036 [facility] [id number] Albumin, Serum 3.7 g/dL (Normal) Range: 3.5-4.8 [...] Glucose, Serum 119 mg/dL (Abnormal) Range: 65-99 3-Wbj-412933:07 LIPID PANEL (21824) Comments: PATIENT WAS FASTINGPERFORMED BY: LabCoC[facility] Medical CenterGrfifq8052 [facility] [id number] LDL/HDL Ratio 1.4 {ratio} (Normal) Range: 0.0-3.2 Comments: LDL/HDL Ratio Men Women 1/2 Avg.Risk 1.0 1.5 Av g.Risk 3.6 3.2 2X Avg.Risk 6.2 5.0 3X Avg.Risk 8.0 6.1 LDL Cholesterol Calc 102 mg/dL (Abnormal) Range: 0-99 VLDL Cholesterol Cesar 17 mg/dL (Normal) Range: 5-40 HDL Cholesterol 75 mg/dL (Normal) Triglycerides 84 mg/dL (Normal) Range: 0-149 Cholesterol, Total 194 mg/dL (Normal) Range: 100-199 1-Dme-456407:07 CBC W/AUTO DIFF WBC (29408) Comments: PATIENT WAS FASTINGPERFORMED BY: LabCoiBuildApp Feacos2612 [facility] [id number] Immature Grans (Abs) 0.0 {x10E3/uL} (Normal) Range: [...] 3.77-5.28 WBC 4.8 {x10E3/uL} (Normal) Range: 3.4-10.8 3-Xde-131331:07 METABOLIC PANEL, COMPREHENSIVE Comments: PATIENT WAS FASTINGPERFORMED BY: LabMymichigan Medical Center Gladwin6370 [facility] [id number] (70636) ALT (SGPT) 14 [iU]/L (Normal) Range: 0-32 [...] 8-27 Glucose 158 mg/dL (Abnormal) Range: 65-99 7-Dgi-977410:07 VITAMIN B-12 (CYANOCOBALAMIN) Comments: PATIENT WAS FASTINGPERFORMED BY: [employer] Xepgkg8563 [facility] [id number] (93176) Vitamin B12 771 pg/mL (Normal) Range: 232-1245 13-May-20170:00 CDIFF (Molecular) Comments: [facility] Xewasmttmg7776 [place], [address] CDIFF See Note (Normal) Comments: Cdiff-MolecularNormal Reference Range = Negative C. Diff DNA Negative- No toxigenic C. Diff DNA DetectedNAAT METHOD Testing was performed using nucleic acid amplification 05-May-20179:32 Rapid Flu (01358 x 2) Influenza A Ag Negative (Normal) :35 CBC with auto diff (89863) Comments: PATIENT WAS FASTINGPERFORMED BY: LabCoiBuildApp Nylkth1023 [facility] [id number] Immature Grans (Abs) 0.0 {x10E3/uL} (Normal) Range: [...] 3.77-5.28 WBC 6.6 {x10E3/uL} (Normal) Range: 3.4-10.8 91-Toa-36180:35 METABOLIC PANEL, COMPREHENSIVE Comments: PATIENT WAS FASTINGPERFORMED BY: LabCoC[facility] Regional Medical CenterCqwwzj0143 [facility] [id number] (26692) ALT (SGPT) 16 [iU]/L (Normal) Range: 0-32 [...] Glucose, Serum 145 mg/dL (Abnormal) Range: 65-99 08-Kxt-062629:51 HgA1C , Office (10538) HgA1C , Office 6.7 % (Normal) Range: 4.6 - 7.1 :50 CALCIFEDIOL (91335) Comments: A courtesy copy of this report has been sent [phone].PATIENT WAS FASTINGPERFORMED BY: Whistlestop70 [employer] [place] [id number] Vitamin D, 25-Hydroxy 40.7 ng/mL (Normal) Range: 30.0-100.0 Comments: Vitamin D deficiency has been defined by the [place] ofAdena Health Systemcine and an Endocrine Society practice guideline as alevel of serum 25-OH vitamin D less than 20 ng/mL (1,2).The Endocrine Society went on to further define vitamin Dinsufficiency as a level between 21 and 29 ng/mL (2).1. IOM ([place] of Medicine). 2010. Dietary reference intakes for calcium and D. [place]: The National Academies Press.2. Mira MF, Rosette NC, Tommy SWAIN, et al. Evaluation, treatment, and prevention of vitamin D deficiency: an Endocrine Society clinical practice guideline. JCEM. 2010; 96(7):1911-30. :50 PTH (PARATHORMONE) (86116) Comments: A courtesy copy of this report has been sent [phone].PATIENT WAS FASTINGPERFORMED BY: [employer] Vveqbq3002 [place] [facility] Medical CenterPFI Acquisitionin [place] [id number] PTH, Intact 20 pg/mL (Normal) Range: 15-65 4-Sxv-630164:50 MICROALBUMIN: CREATININE RATIO Comments: A courtesy copy of this report has been sent [phone].PATIENT WAS FASTINGPERFORMED BY: Whistlestop70 [employer] [facility] [id number] (91998) AND (34068) Microalb/Creat Ratio 4376.0 {mg/g_creat} (Abnormal) Range: 0.0-30.0 Microalbumin, Urine 3369.5 ug/mL (Normal) Comments: Results confirmed ondilution. Creatinine, Urine 77.0 mg/dL (Normal) 6-Uqc-632483:50 Renal function Panel Comments: A courtesy copy of this report has been sent [phone].PATIENT WAS FASTINGPERFORMED BY: Whistlestop70 [facility] [id number] Information: FX DR. SANTANA [phone] (63341) Albumin, Serum 3.8 g/dL (Normal) Range: 3.5-4.8 [...] 203 mg/dL (Abnormal) Range: 65-99 :50 Magnesium (86893) Comments: A courtesy copy of this report has been sent [phone].PATIENT WAS FASTINGPERFORMED BY: [employer]achi[employer] [facility] [id number] Magnesium, Serum 1.8 mg/dL (Normal) Range: 1.6-2.3 :53 CBC with auto diff (41424) Comments: A courtesy copy of this report has been sent [phone].PATIENT WAS FASTINGPERFORMED BY: [facility] Amrmhe2114 [facility] [id number] Immature Grans (Abs) 0.0 {x10E3/uL} (Normal) Range: [...] {x10E3/uL} (Normal) Range: 3.4-10.8 :53 LIPID PANEL (00570) Comments: A courtesy copy of this report has been sent [phone].PATIENT WAS FASTINGPERFORMED BY: LabCoCape Regional Medical CenterQqdpac2095 [facility] [id number] LDL/HDL Ratio 1.2 {ratio_units} (Normal) Range: 0.0-3.2 Comments: LDL/HDL Ratio Men Women 1/2 Avg.Risk 1.0 1.5 Av g.Risk 3.6 3.2 2X Avg.Risk 6.2 5.0 3X Avg.Risk 8.0 6.1 LDL Cholesterol Calc 90 mg/dL (Normal) Range: 0-99 VLDL Cholesterol Cesar 13 mg/dL (Normal) Range: 5-40 HDL Cholesterol 76 mg/dL (Normal) Triglycerides 67 mg/dL (Normal) Range: 0-149 Cholesterol, Total 179 mg/dL (Normal) Range: 100-199 5-Xni-567073:53 METABOLIC PANEL, COMPREHENSIVE Comments: A courtesy copy of this report has been sent [phone].PATIENT WAS FASTINGPERFORMED BY: Spin Transfer TechnologiesCape Regional Medical CenterYxbrte5129 [facility] [id number] (73207) ALT (SGPT) 11 [iU]/L (Normal) Range: 0-32 [...] Glucose, Serum 205 mg/dL (Abnormal) Range: 65-99 26-Dvp-046708:57 HgA1C , Office (10186) HgA1C , Office 7.1 % (Normal) Range: 4.6 - 7.1 :09 LIPID PANEL (17905) Comments: PATIENT WAS FASTINGPERFORMED BY: [employer]6370 [place] [facility] [id number] LDL/HDL Ratio 1.3 {ratio_units} (Normal) Range: 0.0-3.2 [...] PANEL, COMPREHENSIVE Comments: PATIENT WAS FASTINGPERFORMED BY: [employer]6370 [facility] [id number] (61445) ALT (SGPT) 12 [iU]/L (Normal) Range: 0-32 [...] (Abnormal) Range: 65-99 :50 HgA1C , Office (12287) HgA1C , Office 6.7 % (Normal) Range: 4.6 - 7.1 :25 Magnesium, Serum 1.9 mg/dL (Normal) Comments: PATIENT WAS FASTINGPERFORMED BY: [employer] Pairings6370 [facility]EC[facility] [id number] Range: 1.6-2.3 :25 Microalb/Creat Ratio, Randm Ur Comments: PATIENT WAS FASTINGPERFORMED BY: [employer]6370 [facility]EC[facility] [id number] Microalb/Creat Ratio 2652.0 {mg/g_creat} Range: 0.0-30.0 (Abnormal) Microalbumin, Urine 2482.3 ug/mL (Normal) Comments: Results confirmed ondilution. Creatinine, Urine 93.6 mg/dL (Normal) PTH, Intact 26 pg/mL (Normal) Comments: PATIENT WAS FASTINGPERFORMED BY: [employer] Pair[employer]6370 [place] [facility] CenterPFI AcquisitionECU Health [facility] Hospital [id number] :25 Range: 15-65 :25 Renal Panel (10) Comments: PATIENT WAS FASTINGPERFORMED BY: [employer] [place] [id number] Phosphorus, Serum 4.3 mg/dL (Normal) Range: 2.5-4.5 :25 Thyroxine (T4) Free, Direct, S Comments: PATIENT WAS FASTINGPERFORMED BY: [facility]6370 [facility] [place] [id number] T4,Free(Direct) 1.08 ng/dL (Normal) Range: 0.82-1.77 : TSH 2.980 {uIU/mL} Comments: PATIENT WAS FASTINGPERFORMED BY: [facility] Xbadqm3946 [facility] [place] [id number] 25 (Normal) Range: 0.450-4.500 : Vitamin D, 25-Hydroxy 37.1 ng/mL (Normal) Comments: PATIENT WAS FASTINGPERFORMED BY: [facility]lin6370 [facility] InstituteDublin [place] [id number] 25 Range: 30.0-100.0 Comments: Vitamin D deficiency has been defined by the [place] ofAdena Health Systemcine and an Endocrine Society practice guideline as alevel of serum 25-OH vitamin D less than 20 ng/mL (1,2).The Endocrine Society went on to further define vitamin Dinsufficiency as a level between 21 and 29 ng/mL (2).1. IOM ([place] of Medicine). 2010. Dietary reference intakes for calcium and D. [place]: The National Academies Press.2. Mira MF, Rosette NC, Tommy SWAIN, et al. Evaluation, treatment, and prevention of vitamin D deficiency: an Endocrine Society clinical practice guideline. JCEM. 2010; 96(7):1911-30. :25 CBC W/AUTO DIFF WBC (52608) Comments: PATIENT WAS FASTINGPERFORMED BY: [facility] Cgiusg7302 [facility] [place] [id number] Immature Grans (Abs) 0.0 {x10E3/uL} (Normal) Range: [...] COMPREHENSIVE Comments: PATIENT WAS FASTINGPERFORMED BY: LabCo Viohfa9956 [facility] [id number]; non- emergent till apt (60595) ALT (SGPT) 10 [iU]/L (Normal) Range: 0-32 [...] mg/dL (Abnormal) Range: 65-99 :25 LIPID PANEL (98936) Comments: PATIENT WAS FASTINGPERFORMED BY: ParkAround.comECU [facility] [id number] LDL/HDL Ratio 0.9 {ratio_units} (Normal) Range: 0.0-3.2 Comments: LDL/HDL Ratio Men Women 1/2 Avg.Risk 1.0 1.5 Av g.Risk 3.6 3.2 2X Avg.Risk 6.2 5.0 3X Avg.Risk 8.0 6.1 LDL Cholesterol Calc 65 mg/dL (Normal) Range: 0-99 VLDL Cholesterol Cesar 19 mg/dL (Normal) Range: 5-40 HDL Cholesterol 75 mg/dL (Normal) Triglycerides 93 mg/dL (Normal) Range: 0-149 Cholesterol, Total 159 mg/dL (Normal) Range: 100-199 72-Ooc-521573:54 HgA1C , Office (97818) HgA1C , Office 6.6 % (Normal) Range: 4.6 - 7.1 71-Wbc-193107:1 Magnesium, Serum 2.1 mg/dL (Normal) Comments: PATIENT WAS FASTINGPERFORMED BY: [employer]6370 [facility]EC[facility] [id number] 2 Range: 1.6-2.3 79-Dbj-811002:12 Microalb/Creat Ratio, Randjosue Ur Comments: PATIENT WAS FASTINGPERFORMED BY: [facility] Eadbcd8828 [place] [facility] [place] [id number] Microalb/Creat Ratio 1863.4 {mg/g_creat} (Abnormal) Range: 0.0-30.0 Microalbumin, Urine 1416.2 ug/mL (Normal) Comments: Results confirmed ondilution. Creatinine, Urine 76.0 mg/dL (Normal) 45-Aih-256395:12 Microscopic Examination Comments: PATIENT WAS FASTINGPERFORMED BY: [facility]Co Kfyftr8323 [place] [facility] [place] [id number] Bacteria None seen (Normal) Mucus Threads Present (Normal) Cast Type Hyaline casts (Normal) Casts Present {/lpf} (Abnormal) Epithelial Cells (non 0-10 {/hpf} Range: 0 - 10 renal) (Normal) RBC 3-10 {/hpf} Range: 0 - 2 (Abnormal) WBC 6-10 {/hpf} Range: 0 - 5 (Abnormal) PTH, Intact 36 pg/mL (Normal) Comments: PATIENT WAS FASTINGPERFORMED BY: [facility] Zgensf5792 [facility] [id number] 0:12 Range: 15-65 Vitamin D, 25-Hydroxy 42.9 ng/mL (Normal) Comments: PATIENT WAS FASTINGPERFORMED BY: [facility] Vknzdj1313 [facility] [place] [id number] 0:12 Range: 30.0-100.0 Comments: Vitamin D deficiency has been defined by the [place] ofMedicine and an Endocrine Society practice guideline as alevel of serum 25-OH vitamin D less than 20 ng/mL (1,2).The Endocrine Society went on to further define vitamin Dinsufficiency as a level between 21 and 29 ng/mL (2).1. IOM ([place] of Medicine). 2010. Dietary reference intakes for calcium and D. [place]: The National Academies Press.2. Mira MF, Rosette NC, Tommy SWAIN, et al. Evaluation, treatment, and prevention of vitamin D deficiency: an Endocrine Society clinical practice guideline. JCEM. 2010; 96(7):1911-30. 42-Nrx-963557:12 URINALYSIS, W/ MICRO (73498) Comments: PATIENT WAS FASTINGPERFORMED BY: [employer]ator Fvykgb8716 [facility] [id number] Microscopic Examination See below: (Normal) Comments: Microscopic was indicated and was performed. Nitrite, Urine Negative (Normal) Urobilinogen,Semi-Qn 0.2 mg/dL (Normal) Range: 0.2-1.0 Bilirubin Negative (Normal) Occult Blood Negative (Normal) Ketones Negative (Normal) Glucose Negative (Normal) Protein 4+ (Abnormal) WBC Esterase Trace (Abnormal) Appearance Clear (Normal) Urine-Color Yellow (Normal) pH 6.0 (Normal) Range: 5.0-7.5 Specific Bonesteel 1.015 (Normal) Range: 1.005-1.030 08-Koc-504205:12 CBC W/AUTO DIFF WBC (20221) Comments: PATIENT WAS FASTINGPERFORMED BY: [employer]6370 [facility] [id number] Immature Grans (Abs) 0.0 {x10E3/uL} (Normal) Range: [...] 3.77-5.28 WBC 6.2 {x10E3/uL} (Normal) Range: 3.4-10.8 85-Dor-764897:12 METABOLIC PANEL, COMPREHENSIVE Comments: PATIENT WAS FASTINGPERFORMED BY: LabCoCape Regional Medical CenterDyztdx4062 [facility] [id number] (92261) ALT (SGPT) 14 [iU]/L (Normal) Range: 0-32 [...] Glucose, Serum 154 mg/dL (Abnormal) Range: 65-99 24-Oua-473120:12 LIPID PANEL (12729) Comments: PATIENT WAS FASTINGPERFORMED BY: [facility]6370 [facility] [id number] LDL/HDL Ratio 0.7 {ratio_units} (Normal) Range: 0.0-3.2 Comments: LDL/HDL Ratio Men Women 1/2 Avg.Risk 1.0 1.5 Av g.Risk 3.6 3.2 2X Avg.Risk 6.2 5.0 3X Avg.Risk 8.0 6.1 LDL Cholesterol Calc 49 mg/dL (Normal) Range: 0-99 VLDL Cholesterol Cesar 14 mg/dL (Normal) Range: 5-40 HDL Cholesterol 75 mg/dL (Normal) Triglycerides 68 mg/dL (Normal) Range: 0-149 Cholesterol, Total 138 mg/dL (Normal) Range: 100-199 17-Jmi-480275:50 HgA1C , Office (41859) HgA1C , Office 6.7 % (Normal) Range: 4.6 - 7.1 61-Xxv-619954:36 VITAMIN B-12 (CYANOCOBALAMIN) Comments: PATIENT WAS FASTINGPERFORMED BY: [facility]6370 [facility] [id number] (87524) Vitamin B12 802 pg/mL (Normal) Range: 211-946 08-Rks-508033:36 LIPID PANEL (70149) Comments: PATIENT WAS FASTINGPERFORMED BY: [facility]6370 [facility] [id number] LDL/HDL Ratio 0.8 {ratio_units} (Normal) Range: 0.0-3.2 [...] (LACTATE DEHYDROGENASE) Comments: PATIENT WAS FASTINGPERFORMED BY: [facility]6370 [facility] [id number] (82717) LDH 217 [iU]/L (Normal) Range: 119-226 :36 CBC W/AUTO DIFF WBC (23186) Comments: PATIENT WAS FASTINGPERFORMED BY: [facility]6370 [facility] [id number] Immature Grans (Abs) 0.0 {x10E3/uL} (Normal) Range: [...] 3.77-5.28 WBC 10.6 {x10E3/uL} (Normal) Range: 3.4-10.8 18-Kcq-991442:36 METABOLIC PANEL, COMPREHENSIVE Comments: PATIENT WAS FASTINGPERFORMED BY: LabCoCape Regional Medical CenterHuywkk0705 [facility] [id number] (76702) ALT (SGPT) 15 [iU]/L (Normal) Range: 0-32 [...] Glucose, Serum 137 mg/dL (Abnormal) Range: 65-99 93-Ceg-249858:36 TSH (83053) Comments: PATIENT WAS FASTINGPERFORMED BY: 24SymbolsMymichigan Medical Center Gladwin6370 [facility] [id number] TSH 0.560 {uIU/mL} (Normal) Range: 0.450-4.500 :02 Renal function Panel (78103) Comments: PATIENT WAS FASTINGPERFORMED BY: 24SymbolsMym[facility] Gladwin6370 [facility] [id number] Albumin, Serum 3.7 g/dL (Normal) Range: 3.5-4.8 [...] 137 mg/dL (Abnormal) Range: 65-99 :02 MAGNESIUM (92741) Comments: PATIENT WAS FASTINGPERFORMED BY: 24SymbolsMym[facility] Gladwin6370 [facility] [id number] Magnesium, Serum 2.2 mg/dL (Normal) Range: 1.6-2.3 :02 MICROALBUMIN: CREATININE RATIO Comments: PATIENT WAS FASTINGPERFORMED BY: [facility]6370 [facility] [id number] (74134) AND (60321) Microalb/Creat Ratio 2038.7 {mg/g_creat} (Abnormal) Range: 0.0-30.0 Microalbumin, Urine 1223.2 ug/mL (Normal) Comments: Results confirmed ondilution. Creatinine, Urine 60.0 mg/dL (Normal) :02 CBC WITH MANUAL DIFF Comments: PATIENT WAS FASTINGPERFORMED BY: LabCoCape Regional Medical CenterPkdguf3998 [facility] [id number] Information: [id number] (83808) Immature Grans (Abs) 0.0 {x10E3/uL} (Normal) Range: [...] {x10E3/uL} (Normal) Range: 3.4-10.8 :02 HGB A1C (25115) Comments: PATIENT WAS FASTINGPERFORMED BY: [facility]6370 [facility] [id number] Hemoglobin A1c 6.4 % (Abnormal) Range: 4.8-5.6 Comments: . Pre-diabetes: 5.7 - 6.4 Diabetes: >6.4 Glycemic control for adults with diabetes: <7.0 :02 Lipid Panel (64853) Comments: PATIENT WAS FASTINGPERFORMED BY: [facility]6370 [facility] [id number] LDL/HDL Ratio 1.1 {ratio_units} (Normal) Range: 0.0-3.2 [...] Cholesterol, Total 160 mg/dL (Normal) Range: 100-199 09-Dqu-667415:03 HgA1C , Office (98756) HgA1C , Office 6.1 % (Normal) Range: 4.6 - 7.1 :24 CBC W/AUTO DIFF WBC Comments: PATIENT WAS FASTINGPERFORMED BY: [facility]6370 [facility] [id number] Information: [id number] (62424) Immature Grans (Abs) 0.0 {x10E3/uL} (Normal) Range: [...] CREATININE RATIO Comments: PATIENT WAS FASTINGPERFORMED BY: ParkAround.comECU [facility] [id number] (77253) AND (98519) Microalb/Creat Ratio 1223.8 {mg/g_creat} (Abnormal) Range: 0.0-30.0 Microalbumin, Urine 1012.1 ug/mL (Abnormal) Range: 0.0-17.0 Comments: Results confirmed ondilution. Creatinine, Urine 82.7 mg/dL (Normal) Range: 15.0-278.0 :24 METABOLIC PANEL, COMPREHENSIVE Comments: PATIENT WAS FASTINGPERFORMED BY: Whistlestop70 SimpliVTECU Health Bert[facility] Hospital [id number] (72791) ALT (SGPT) 12 [iU]/L (Normal) Range: 0-32 [...] mg/dL (Abnormal) Range: 65-99 06-Jun-20158:24 LIPID PANEL (97617) Comments: PATIENT WAS FASTINGPERFORMED BY: LabCoCape Regional Medical CenterWhjkmo4219 [facility] [id number] LDL/HDL Ratio 1.1 {ratio_units} (Normal) Range: 0.0-3.2 [...] Range: 100-199 :30 CBC W/Diff, Automated Comments: [facility] [address] [place], [place], [address] Absolute Lymph 0.83 {X10_3/ul} (Normal) Range: 0.83-4.51 [...] (Normal) Range: 4.4-11.0 :30 Hemoglobin A1c Comments: [facility] [address] [place], [place], [address] HGB A1C 6.1 % (Normal) Range: 4.2-6.3 :30 Magnesium Comments: [facility] [address] [place], [place], [address] MG 1.8 mg/dL (Normal) Range: 1.8-2.4 :30 Protein+Creatinine Ratio,Urine Comments: [facility] [address] [place], [address] PROT:CRE RATIO 2121 {mg/g_CRE} (Abnormal) Range: 0-200 PROTEIN,UR.RAN. 164.2 mg/dL (Abnormal) UR CREAT 77.40 mg/dL (Normal) :30 Renal Profile Comments: [facility] [address] [place], [place], [address] CO2 27.0 mmol/L (Normal) Range: 21.0-32.0 CL [...] 126 mg/dLsuggests DIABETES MELLITUS per A.D.A. criteria. 17-Oxm-44514:00 24 HR UR Creatinine Clearance Comments: [facility] [address] [place], [place], [address] CREAT CLEARANCE 24 ml/min (Abnormal) Range: 100-200 URINE CREAT 20.6 mg/dL (Normal) EST GFR - AA 38 mL/min (Abnormal) Comments: GFR Calc EST GFR 31 mL/min (Abnormal) Comments: Non- GFR Calc SERUM CREAT 1.7 mg/dL (Abnormal) Range: 0.6-1.0 UR TOTAL VOLUME 2800 mL (Normal) UR COLLECT TIME 24.0 {HOURS} (Normal) 24-Czm-67274:00 Protein, Urine 24HR Comments: [facility] [address] [place], [address] 24hr UR PROTEIN 1178.8 {mg/24HR} (Abnormal) URINE PROTEIN 42.1 mg/dL (Abnormal) UR TOTAL VOLUME 2800 mL (Normal) UR COLLECT TIME 24.0 {HOURS} (Normal) 7-Ytx-276841:29 Metabolic Panel, Basic Comments: PATIENT NOT FASTINGPERFORMED BY: Energiachiara.it [facility] [id number] Information: [id number] (61006) Calcium, Serum 9.3 mg/dL (Normal) Range: 8.7-10.3 [...] Glucose, Serum 102 mg/dL (Abnormal) Range: 65-99 42-Lel-16660:39 Metabolic Panel, Basic Comments: tuesday; PATIENT NOT FASTINGPERFORMED BY: Motorator LawbitDocs [facility] [id number] Information: [id number] (43308) Calcium, Serum 9.0 mg/dL (Normal) Range: 8.7-10.3 [...] (Abnormal) Range: 65-99 :32 HgA1C , Office (65212) HgA1C , Office 6.2 % (Normal) Range: 4.6 - 7.1 :31 Rapid Strep Test, Office (77681) Comments: neg Rapid Strep Test, Office Negative (Normal) :06 THROAT CULTURE (38401) Comments: PATIENT NOT FASTINGPERFORMED BY: Senstore LabOverblogrp Fcwwol[address] NexalogyEcu Health Medical Centerin [place] [id number] Information: [id number] Result 1 RRF (Normal) Comments: Routine respiratory luis Upper Respiratory Culture Final report (Normal) :52 TSH (90362) Comments: PATIENT WAS FASTINGPERFORMED BY: Senstore [facility] Fjmnta2[address] RoadDublin [place] [id number] TSH 2.190 {uIU/mL} (Normal) Range: 0.450-4.500 :52 Vitamin D Hydroxy (36210) Comments: PATIENT WAS FASTINGPERFORMED BY: Senstore [facility] Wgeuee024[address] RoadDublin [place] [id number] Vitamin D, 25-Hydroxy 43.8 ng/mL (Normal) Range: 30.0-100.0 Comments: Vitamin D deficiency has been defined by the [place] of[place]icine and an Endocrine Society practice guideline as alevel of serum 25-OH vitamin D less than 20 ng/mL (1,2).The Endocrine Society went on to further define vitamin Dinsufficiency as a level between 21 and 29 ng/mL (2).1. IOM ([place] of Medicine). 2010. Dietary reference intakes for calcium and D. [place]: The National Academies Press.2. Mira MF, Rosette LOPEZ, Tommy SWAIN, et al. Evaluation, treatment, and prevention of vitamin D deficiency: an Endocrine Society clinical practice guideline. JCEM. 2010; 96(7):1911-30. :52 LIPID PANEL (22889) Comments: PATIENT WAS FASTINGPERFORMED BY: LabCoiBuildApp Ymbaty4905 [facility] [id number] LDL/HDL Ratio 1.3 {ratio_units} (Normal) Range: 0.0-3.2 [...] auto diff Comments: PATIENT WAS FASTINGPERFORMED BY: LabCoCape Regional Medical CenterRzboss6208 [facility] [id number] Information: [id number], [id number] (00225) Immature Grans (Abs) 0.0 {x10E3/uL} (Normal) Range: [...] PANEL, COMPREHENSIVE Comments: PATIENT WAS FASTINGPERFORMED BY: LabCoCape Regional Medical CenterUjcekr8004 [facility] [id number] (53873) ALT (SGPT) 19 [iU]/L (Normal) Range: 0-32 [...] (Abnormal) Range: 65-99 :08 HgA1C , Office (37818) HgA1C , Office 6.4 % (Normal) Range: 4.6 - 7.1 :00 Creatinine Clearance Comments: PATIENT NOT FASTINGPERFORMED BY: Whistlestop70 Codasystem [facility] CenterPFI AcquisitionECU [facility] Hospital [id number] Information: [id number] S TART Creatinine Clearance 33 mL/min (Abnormal) [...] Qn, 24-Hr Comments: PATIENT NOT FASTINGPERFORMED BY: Easy Pairings6370 Codasystem [facility] [id number] Urine Prot,24hr calculated 1309.8 {mg/24_hr} (Abnormal) Range: 30.0-150.0 Protein,Total,Urine 70.8 mg/dL (Abnormal) Range: 0.0-15.0 :01 CBC W/Diff, Automated Comments: Test performed at:[facility] [address] [place] [address] Absolute Neut 3.1 {X10_3/uL} (Normal) [...] Range: 4.4-11.0 :01 Magnesium Comments: Test performed at:[facility] [address] [place] [address] MG 2.0 mg/dL (Normal) Range: 1.8-2.4 :01 Protein+Creatinine Ratio,Urine Comments: Test performed at:[facility] Fx[address]dtcrrj[address] [place] [address] PROT:CRE RATIO 2232 {mg/g_CRE} (Abnormal) Range: 0-200 PROTEIN,UR.RAN. 160.3 mg/dL (Abnormal) UR CREAT 71.8 mg/dL (Normal) :01 Renal Profile Comments: Test performed at:[facility] Z[address]jmihej[address] [place] [address] CO2 32.0 mmol/L (Normal) Range: [...] mg/dL (Normal) Range: 70-110 :08 LIPID PANEL (32684) Comments: PATIENT WAS FASTINGPERFORMED BY: Whistlestop70 [facility] [id number] LDL/HDL Ratio 1.0 {ratio_units} (Normal) Range: 0.0-3.2 [...] METABOLIC PANEL, Comments: PATIENT WAS FASTINGPERFORMED BY: Energiachiara.it [facility] [id number] Information: [id number] COMPREHENSIVE (95941) ALT (SGPT) 29 [iU]/L (Normal) Range: 0-32 [...] (Abnormal) Range: 65-99 :59 HgA1C , Office (22931) HgA1C , Office 6.5 % (Normal) Range: 4.6 - 7.1 :54 CBC W/AUTO DIFF WBC Comments: PATIENT WAS FASTINGPERFORMED BY: VEE [facility] Andgnt9257 [facility] [id number] Information: [id number] (96609) Immature Grans (Abs) 0.0 {x10E3/uL} (Normal) Range: [...] 3.77-5.28 WBC 4.2 {x10E3/uL} (Normal) Range: 3.4-10.8 05-Tvn-25604:54 METABOLIC PANEL, COMPREHENSIVE Comments: PATIENT WAS FASTINGPERFORMED BY: LabCoCape Regional Medical CenterWcxfuj1521 [facility] [id number]; non- emergent till apt (28281) ALT (SGPT) 13 [iU]/L (Normal) Range: 0-32 [...] mg/dL (Abnormal) Range: 65-99 :54 LIPID PANEL (03709) Comments: PATIENT WAS FASTINGPERFORMED BY: LabCoCape Regional Medical CenterHsqajo2008 [facility] [id number] LDL/HDL Ratio 1.1 {ratio_units} (Normal) Range: 0.0-3.2 [...] (Normal) Range: 100-199 :29 HgA1C , Office (83276) HgA1C , Office 6.6 % (Normal) Range: 4.6 - 7.1 :12 CBC W/Diff, Automated Comments: Test performed at:[facility] [address] [place] [address] ; handled by Dr. Santana Absolute Lymph [...] Range: 4.4-11.0 :12 Magnesium Comments: Test performed at:[facility] [address] [place] [address] MG 2.0 mg/dL (Normal) Range: 1.8-2.4 :12 Microalb:Creat Ratio,Random UR Comments: Test performed at:[facility] [address] [place], [place] [address] ; Dr. Angelo LING:CREAT 1483.0 {mg/g_CRE} (Abnormal) MICROALBUMIN,UR 918.0 mg/L (Normal) UR CREAT 61.9 mg/dL (Normal) 78-Jqu-22702:12 Renal Profile Comments: Test performed at:[facility] [address]uxevoro[address] [place] [address] CO2 29.0 mmol/L (Normal) Range: 21.0-32.0 CL [...] 126 mg/dLsuggests DIABETES MELLITUS per A.D.A. criteria. 43-Aox-854439:20 LIPID PANEL (75279) Comments: PATIENT WAS FASTINGPERFORMED BY: [facility]6370 [facility] [id number] LDL/HDL Ratio 1.0 {ratio_units} (Normal) Range: 0.0-3.2 [...] Cholesterol, Total 151 mg/dL (Normal) Range: 100-199 22-Knj-842317:20 METABOLIC PANEL, Comments: PATIENT WAS FASTINGPERFORMED BY: Whistlestop70 [facility] [id number] Information: [id number] COMPREHENSIVE (65082) ALT (SGPT) 16 [iU]/L (Normal) Range: 0-32 [...] Glucose, Serum 148 mg/dL (Abnormal) Range: 65-99 06-Azk-461981:21 CREATININE CLEARANCE Comments: PATIENT WAS FASTINGPERFORMED BY: Spin Transfer TechnologiesCape Regional Medical CenterJasruu4740 [facility] [id number] Information: [id number] START 04/02/14@9AM FINISH 04/03/14 6:00 AM (11893) Creatinine Clearance 42 mL/min (Abnormal) Range: 88-128 [...] Hour Urine Comments: PATIENT WAS FASTINGPERFORMED BY: [facility] [id number] (09223) Prot,24hr calculated 1559.0 {mg/24_hr} (Abnormal) Range: 30.0-150.0 Protein,Total,Urine 54.7 mg/dL (Abnormal) Range: 0.0-15.0 :57 LIPID PANEL (91288) Comments: PATIENT WAS FASTINGPERFORMED BY: CyprotexC[facility] [id number] LDL/HDL Ratio 1.1 {ratio_units} (Normal) Range: 0.0-3.2 [...] MANUAL DIFF Comments: PATIENT WAS FASTINGPERFORMED BY: Easy Pairings6370 [facility] [id number] Information: [id number] (02122) Immature Grans (Abs) 0.0 {x10E3/uL} (Normal) Range: [...] PANEL, COMPREHENSIVE Comments: PATIENT WAS FASTINGPERFORMED BY: [facility]6370 [facility] [id number] (61824) ALT (SGPT) 10 [iU]/L (Normal) Range: 0-32 [...] Result Units: mg/dL AdultPerformed at: - [facility] [address] [id number] Director: Yousuf Bernardo PhD, Phone: [phone] :[phone] C4 37 (Abnormal) Range: 9-36 0 [...] 4.2-5.4 WBC 4.6 K/mm3 (Normal) Range: 4.4-11.0 41-Hhb-15352:00 CMP GAP 3 (Abnormal) Range: 5-15 CO2 [...] MANUAL DIFF Comments: PATIENT WAS FASTINGPERFORMED BY: LabCoCape Regional Medical CenterDhqwph9370 [facility] [id number] Information: [id number] (74469) Immature Grans (Abs) 0.0 {x10E3/uL} (Normal) Range: [...] 3.77-5.28 WBC 4.5 {x10E3/uL} (Normal) Range: 3.4-10.8 05-Xdx-26952:21 METABOLIC PANEL, COMPREHENSIVE Comments: PATIENT WAS FASTINGPERFORMED BY: LabMymichigan Medical Center Gladwin6370 [facility] [id number] (99320) ALT (SGPT) 16 [iU]/L (Normal) Range: 0-32 [...] Glucose, Serum 132 mg/dL (Abnormal) Range: 65-99 06-Inx-783113:53 CREATININE CLEARANCE Comments: PATIENT NOT FASTINGPERFORMED BY: EVE [employer] Dqfxce3710 [facility] [id number] Information: [id number] START 10/30/13@8AM F INISH 10/31/13@8AM 2650ML (84576) Creatinine Clearance 44 mL/min (Abnormal) Range: 88-128 Comments: The above range is based on 1.73 square meter average body surfacearea. Creatinine, Ur 24hr 877.2 {mg/24_hr} (Normal) Range: 800.0-1800.0 Creatinine, Urine 33.1 mg/dL (Normal) Range: 15.0-278.0 eGFR If Africn Am 44 mL/min/1.73 (Abnormal) eGFR If NonAfricn Am 38 mL/min/1.73 (Abnormal) Creatinine, Serum 1.37 mg/dL (Abnormal) Range: 0.57-1.00 65-Jbu-614272:53 Total Protein,24 Hour Urine Comments: PATIENT NOT FASTINGPERFORMED BY: EVE [employer] Wtoaql5634 [facility] [id number] (15990) Prot,24hr calculated 3458.3 {mg/24_hr} (Abnormal) Range: 30.0-150.0 Protein,Total,Urine 130.5 mg/dL (Abnormal) Range: 0.0-15.0 39-Kmg-975092:31 HgA1C , Office (91511) HgA1C , Office 6.4 % (Normal) Range: 4.6 - 7.1 49-Sjt-361625:27 Microscopic Examination Comments: PATIENT WAS FASTINGPERFORMED BY: EVE [employer] Nbndrl7520 [facility] [id number] Bacteria Few (Normal) Mucus Threads Present (Normal) Epithelial Cells (non renal) 0-10 {/hpf} (Normal) Range: 0 - 10 RBC 3-10 {/hpf} (Abnormal) Range: 0 - 2 WBC 6-10 {/hpf} (Abnormal) Range: 0 - 5 35-Smf-66500:32 LIPID PANEL (65550) Comments: PATIENT WAS FASTINGPERFORMED BY: LabMymichigan [facility] Center Gladwin6370 [facility] [id number] LDL/HDL Ratio 1.0 {ratio_units} (Normal) Range: 0.0-3.2 [...] CREATININE RATIO Comments: PATIENT WAS FASTINGPERFORMED BY: 24SymbolsMymichigan Medical Center Gladwin6370 [facility] [id number] (48352) AND (04746) Microalb/Creat Ratio 1998.9 {mg/g_creat} (Abnormal) Range: 0.0-30.0 Creatinine, Urine 73.4 mg/dL (Normal) Range: 15.0-278.0 Microalbumin, Urine 1467.2 ug/mL (Abnormal) Range: 0.0-17.0 :32 URINALYSIS, W/ MICRO (55132) Comments: PATIENT WAS FASTINGPERFORMED BY: 24SymbolsMymich[facility] Gladwin6370 [facility] [id number] Microscopic Examination See below: (Normal) Comments: Microscopic was indicated and was performed. Nitrite, Urine Negative (Normal) Urobilinogen,Semi-Qn 0.2 mg/dL (Normal) Range: 0.0-1.9 Bilirubin Negative (Normal) Occult Blood Trace (Abnormal) Ketones Negative (Normal) Glucose Negative (Normal) Protein 3+ (Abnormal) WBC Esterase Trace (Abnormal) Appearance Clear (Normal) Urine-Color Yellow (Normal) pH 6.5 (Normal) Range: 5.0-7.5 Specific Bonesteel 1.015 (Normal) Range: 1.005-1.030 :32 CBC WITH MANUAL DIFF Comments: PATIENT WAS FASTINGPERFORMED BY: [facility]6370 [facility] [id number] Information: [id number] (89654) Immature Grans (Abs) 0.0 {x10E3/uL} (Normal) Range: [...] PANEL, COMPREHENSIVE Comments: PATIENT WAS FASTINGPERFORMED BY: LabCoCape Regional Medical CenterJrzeyy7933 [facility] [id number] (09862) ALT (SGPT) 16 [iU]/L (Normal) Range: 0-32 [...] Glucose, Serum 135 mg/dL (Abnormal) Range: 65-99 09-Gyp-76088:32 VITAMIN B-12 (CYANOCOBALAMIN) Comments: PATIENT WAS FASTINGPERFORMED BY: [employer] Mqcwua2633 [facility] [id number] (39428) Vitamin B12 >1999 pg/mL (Abnormal) Range: 211-946 10-Tgr-385906:01 HgA1C , Office (02258) HgA1C , Office 6.4 % (Normal) Range: 4.6 - 7.1 :37 METABOLIC PANEL, COMPREHENSIVE Comments: PATIENT WAS FASTINGPERFORMED BY: [employer] Ipuqzb5974 [facility] [id number] (96524) ALT (SGPT) 12 [iU]/L (Normal) Range: 0-32 [...] (Abnormal) Range: 65-99 :37 Vitamin D Hydroxy (50501) Comments: PATIENT WAS FASTINGPERFORMED BY: LabMymich[facility] Center Gladwin6370 [facility] [id number] Vitamin D, 25-Hydroxy 47.4 ng/mL (Normal) Range: 30.0-100.0 Comments: Vitamin D deficiency has been defined by the [place] of[place]icine and an Endocrine Society practice guideline as alevel of serum 25-OH vitamin D less than 20 ng/mL (1,2).The Endocrine Society went on to further define vitamin Dinsufficiency as a level between 21 and 29 ng/mL (2).1. IOM ([place] of Medicine). 2010. Dietary reference intakes for calcium and D. [place]: The National Academies Press.2. Mira MF, Rosette [place], Tommy SWAIN, et al. Evaluation, treatment, and prevention of vitamin D deficiency: an Endocrine Society clinical practice guideline. JCEM. 2010; 96(7):1911-30. :37 LIPID PANEL (78179) Comments: PATIENT WAS FASTINGPERFORMED BY: Spin Transfer TechnologiesCape Regional Medical CenterNphcgx5435 [facility] [id number] LDL/HDL Ratio 1.2 {ratio_units} (Normal) Range: 0.0-3.2 [...] MANUAL DIFF Comments: PATIENT WAS FASTINGPERFORMED BY: LabMym[facility] Gladwin6370 [facility] [id number] Information: [id number] (85653) Immature Grans (Abs) 0.0 {x10E3/uL} (Normal) Range: [...] Qn, 24-Hr Comments: PATIENT NOT FASTINGPERFORMED BY: 24SymbolsKevin [place] 7654970 [facility] [id number] Information: ADD [id number] AND DRAW FEE 99 6660 VOLUME 2600 164LBS 5' '3 Urine Prot,24hr calculated 920.4 {mg/24_hr} Range: 30.0-150.0 (Abnormal) Protein,Total,Urine 35.4 mg/dL Range: 0.0-15.0 (Abnormal) : Written Authorization WAR (Normal) Comments: PATIENT NOT FASTINGPERFORMED BY: [facility]6370 [facility] [id number] Comments: Written Authorization Received.Authorization received from Chiqui BRICEÑO LPN [id number] by Marleen Sharma :52 Metabolic Panel, Basic Comments: PATIENT NOT FASTINGPERFORMED BY: [facility]6370 [facility] [id number] Information: ADD [id number] AND DRAW FEE 99 6660 V[address] 2600 164LBS 5' '3 (97559) Calcium, Serum 9.7 mg/dL (Normal) Range: 8.6-10.2 [...] mg/dL (Abnormal) Range: 65-99 :52 CREATININE CLEARANCE (50617) Comments: PATIENT NOT FASTINGPERFORMED BY: Energiachiara.it [facility] [id number] Creatinine Clearance 46 mL/min (Abnormal) Range: 88-128 Comments: The above range is based on 1.73 square meter average body surfacearea. Creatinine, Ur 24hr 899.6 {mg/24_hr} (Normal) Range: 800.0-1800.0 Creatinine, Urine 34.6 mg/dL (Normal) Range: 15.0-278.0 :52 24 hour urine for Protein Comments: PATIENT NOT FASTINGPERFORMED BY: Energiachiara.it [facility] [id number] (67040) Microalb/Creat Ratio 695.4 {mg/g_creat} (Abnormal) Range: 0.0-30.0 Microalbumin, Urine 240.6 ug/mL (Abnormal) Range: 0.0-17.0 :13 HgA1C , Office (87309) HgA1C , Office 6.3 % (Normal) Range: 4.6 - 7.1 :01 Blood Glucose , Office (43344) Blood Glucose , Office 162 (Normal) :02 Microscopic Examination Comments: PATIENT NOT FASTINGPERFORMED BY: Motorator Efaycg8012 [facility] [id number] Bacteria Few (Normal) Mucus Threads Present (Normal) Epithelial Cells (non renal) 0-10 {/hpf} (Normal) Range: 0 - 10 RBC 0-3 {/hpf} (Normal) Range: 0 - 3 WBC 0-5 {/hpf} (Normal) Range: 0 - 5 83-Ynb-819417:43 ABDOMEN/PELVIS WITH CONTRAST Radiology Report See Note [...] Hebert M.D.October 19, 2012 at 2:42:14 PM [phone] Signed GP/GP If you are the referring physician and would like to consult [facility] theradiologist who provided this interpretation, please contact Yasmany Pond at [phone]. If this radiologist is unavailable, youwill be directed to another radiologist to assist. If y ou are a patient with a question regarding this report, pleasecontactyour referring physician directly. Professional Interpretation Provided By: [employer], Phone , These documents contain legally protected [...] 10/19/12 1444 Sign by: Misael Hebert MD 41-Bvh-919646:59 TSH (03822) Comments: PATIENT WAS FASTINGPERFORMED BY: Senstore [facility] Zrpehs2185 [facility] [id number] TSH 1.230 {uIU/mL} (Normal) Range: 0.450-4.500 08-Kmr-763072:59 LIPID PANEL (57999) Comments: PATIENT WAS FASTINGPERFORMED BY: Senstore LabCoAdaptis SolutionsCqnzac2723 [facility] [id number] LDL/HDL Ratio 0.5 {ratio_units} (Normal) Range: 0.0-3.2 LDL Cholesterol Calc 47 mg/dL (Normal) Range: 0-99 Cholesterol, Total 149 mg/dL (Normal) Range: 100-199 HDL Cholesterol 91 mg/dL (Normal) Comments: According to ATP-III Guidelines, HDL-C >59 mg/dL is considered anegative risk factor for CHD. Triglycerides 57 mg/dL (Normal) Range: 0-149 VLDL Cholesterol Cesar 11 mg/dL (Normal) Range: 5-40 45-Dcv-474960:02 URINALYSIS, W/ MICRO Comments: PATIENT NOT FASTINGPERFORMED BY: MotoratorMarilyn [place] [id number] [facility] [id number] Information: [id number] (51740) Microscopic Examination See below: (Normal) Nitrite, Urine Negative (Normal) Bilirubin Negative (Normal) Urobilinogen,Semi-Qn 0.2 mg/dL (Normal) Range: 0.0-1.9 Occult Blood Negative (Normal) Ketones Negative (Normal) Glucose Negative (Normal) Protein 3+ (Abnormal) WBC Esterase Negative (Normal) Appearance Clear (Normal) Urine-Color Yellow (Normal) pH 5.5 (Normal) Range: 5.0-7.5 Specific Bonesteel 1.015 (Normal) Range: 1.005-1.030 48-Mzw-001037:59 CBC WITH MANUAL DIFF Comments: PATIENT WAS FASTINGPERFORMED BY: MotoratorCape Regional Medical CenterMlyvvy1442 [facility] [id number] Information: [id number] (57447) Immature Grans (Abs) 0.0 {x10E3/uL} (Normal) Range: [...] 3.77-5.28 WBC 4.8 {x10E3/uL} (Normal) Range: 3.4-10.8 05-Qsw-601336:59 METABOLIC PANEL, COMPREHENSIVE Comments: PATIENT WAS FASTINGPERFORMED BY: [facility]6370 [facility] [id number] (23006) ALT (SGPT) 14 [iU]/L (Normal) Range: 0-32 [...] Glucose, Serum 104 mg/dL (Abnormal) Range: 65-99 0-Ykm-602924:37 HgA1C , Office (37554) HgA1C , Office 6.0 % (Normal) Range: 4.6 - 7.1 1-Obh-506149:31 CRE CREAT 1.3 mg/dL (Abnormal) Range: 0.6-1.0 [...] Galan M.D.August 09, 2012 at 2:38:03 PM [id number] Signed PV/PV If you are the referring physician and would like to consult with theradiologist who provided this interpretation, please contact Donna Burnett M.D. at [phone]. If this radiologist is unavailable, youwillbe directed to another radiologist to assist. If you are a patient with a question regarding this report, pleasecontactyour referring physician evelyne cowan. Professional Interpretation Provided By: [employer], Phone , These documents contain legally protected [...] on 08/09/12 1441 Sign by: Mario MANNDonna 84-Rhk-912770:31 CBC with manual diff Comments: PATIENT NOT FASTINGPERFORMED BY: EVE [facility] Tlzcrc6554 [facility] [id number] Information: [id number] (35173) Immature Grans (Abs) 0.0 {x10E3/uL} (Normal) Range: [...] 3.77-5.28 WBC 3.2 {x10E3/uL} (Abnormal) Range: 4.0-10.5 37-Jjm-456908:31 Metabolic Panel, Comprehensive Comments: PATIENT NOT FASTINGPERFORMED BY: EVE LabCoCape Regional Medical CenterKzvhaa9342 [facility] [id number] (52397) ALT (SGPT) 19 [iU]/L (Normal) Range: 0-32 [...] mg/dL (Abnormal) Range: 65-99 04-Oct-20128:31 LIPID PANEL (99786) Comments: PATIENT WAS FASTINGPERFORMED BY: LabCoCape Regional Medical CenterEwaina1939 [facility] [id number] LDL/HDL Ratio 0.8 {ratio_units} (Normal) Range: 0.0-3.2 [...] DIFF Comments: PATIENT WAS FASTINGPERFORMED BY: EVE LabCoCape Regional Medical CenterRfoois6476 [facility] [id number] Information: [id number] (33533) Immature Grans (Abs) 0.0 {x10E3/uL} (Normal) Range: [...] COMPREHENSIVE Comments: PATIENT WAS FASTINGPERFORMED BY: EVE LabCoCape Regional Medical CenterIvyhis5314 [facility] [id number] (12341) ALT (SGPT) 22 [iU]/L (Normal) Range: 0-32 [...] (Abnormal) Range: 65-99 :45 HgA1C , Office (52718) HgA1C , Office 6.1 % (Normal) Range: [...] Galan M.D.February 02, 2012 at 5:10:18 PM [id number] Signed PV/PV If you are the referring physician and w ould like to consult with theradiologist who provided this interpretation, please contact Donna Burnett M.D. at [phone]. If this radiologist is unavailable, youwillbe directed to another radiol ogist to assist. If you are a patient with a question regarding this report, pleasecontactyour referring physician directly. Professional Interpretation Provided By: [employer], Phone ,Fa x [phone] These documents contain legally protected and confidential [...] 02/02/121713 S ign by: Donna Martin MD 23-Fsl-034848:16 DEXA BONE DENSITY STUDY (HP) Radiology Report [...] Coronel M.D.January 20, 2012 at 2:43:46 PM [phone] Signed KERA/KERA If you ar e the [...] 01/20/12 1447 Sign by: David Coronel MD 49-Jnw-321475:15 BILAT SCRN DIGITAL & CAD Radiology Report [...] Coronel M.D.January 20, 2012 at 1:20:11 PM [phone] Signed KERA/KERA If you are the referring physician and would like to consult with theradiologist who provided this interpretation, please contact Yasmany Parnell at . If this radiologist is unavailable,youwill be directed to another radiologist to assist. If you are a patient with a question regarding this report, pleasecontactyour referring physician directly. Professional Interpretation Provided By: [employer], Phone , These documents contain legally protected [...] on 01/20/12 1323 by ITS IMPORTSign by Dvaid Coronel MD on 01/20/12 1324 Sign by: aDvid Coronel MD 6-Leq-911910:56 PELVIC (NON ) Radiology Report See Note [...] Vuong M.D.January 10, 2012 at 8:39:09 PM [id number] Signed JL/JL If you are the referring physician and would like to consult with theradiologist who provided this inte rpretation, please contact Radha Vuong M.D. at [phone]. If this radiologist is unavailable, you will bedirected to another radiologist to assist. If you are a patient with a question regarding this r eport, pleasecontactyour referring physician directly. Professional Interpretation Provided By: [employer], Phone , PROCEDURE: ULTRASOUND OF THE FEMALE [...] Vuong M.D.January 10, 2012 at 8:40:07 PM [id number] Signed JL/JOHNNY If you are the referring physician and would like to consult with theradiologist who provided this interpretation, please contact Radha Vuong M.D. at [phone]. If this radiologist is unavailable, you will bedirected to another radiologist to assist. If you are a patient with a question regarding this report, pleasecontactyour referring ysician directly. Professional Interpretation Provided By: [employer], Phone , These documents contain legally protected [...] Dictated on 01/10/12 1309 by Nahum VUONG MDsutter [facility] ribed on 01/11/12 1113 by ITS IMPORTSign by RADHA VUONG MD on 01/11/12 1114 Sign by: RADHA VUONG MD 87-Bdj-09099:35 MICROALBUMIN: CREATININE RATIO Comments: PATIENT WAS FASTINGPERFORMED BY: LabCoCape [facility] Medical CenterDbvyrr2103 [facility] [id number] (20829) AND (59507) Microalb/Creat Ratio 829.4 {mg/g_creat} (Abnormal) Range: 0.0-30.0 Microalbumin, Urine 437.1 ug/mL (Abnormal) Range: 0.0-17.0 Creatinine, Urine 52.7 mg/dL (Normal) Range: 15.0-278.0 :35 CBC WITH MANUAL DIFF Comments: PATIENT WAS FASTINGPERFORMED BY: Spin Transfer TechnologiesCape Regional Medical CenterDmczkw6958 [facility] [id number] Information: [id number] (00691) Immature Grans (Abs) 0.0 {x10E3/uL} (Normal) Range: [...] PANEL, COMPREHENSIVE Comments: PATIENT WAS FASTINGPERFORMED BY: Spin Transfer TechnologiesCape Regional Medical CenterGdixgz2715 [facility] [id number] (02143) ALT (SGPT) 15 [iU]/L (Normal) Range: 0-32 [...] Glucose, Serum 125 mg/dL (Abnormal) Range: 65-99 03-Wkj-30075:35 LIPID PANEL (98131) Comments: PATIENT WAS FASTINGPERFORMED BY: [facility] Clapcx9841 [facility] [id number] LDL/HDL Ratio 0.9 {ratio_units} (Normal) Range: 0.0-3.2 LDL Cholesterol Calc 72 mg/dL (Normal) Range: 0-99 HDL Cholesterol 83 mg/dL (Normal) Comments: According to ATP-III Guidelines, HDL-C >59 mg/dL is considered anegative risk factor for CHD. VLDL Cholesterol Cesar 18 mg/dL (Normal) Range: 5-40 Triglycerides 90 mg/dL (Normal) Range: 0-149 Cholesterol, Total 173 mg/dL (Normal) Range: 100-199 :15 HgA1C , Office (78304) HgA1C , Office 6.2 % (Normal) Range: 4.6 - 7.1 :30 CBC WITH MANUAL DIFF Comments: PATIENT WAS FASTINGPERFORMED BY: LabCoCape [facility] Medical CenterKkyhkx0937 [facility] [id number] Information: [id number] (55447) Immature Grans (Abs) 0.0 {x10E3/uL} (Normal) Range: [...] COMPREHENSIVE Comments: PATIENT WAS FASTINGPERFORMED BY: EVE TaskEasy70 [facility] [id number] (50572) ALT (SGPT) 19 [iU]/L (Normal) Range: 0-40 [...] mg/dL (Abnormal) Range: 65-99 :30 LIPID PANEL (59007) Comments: PATIENT WAS FASTINGPERFORMED BY: GoInstant6370 [facility] [id number] LDL/HDL Ratio 0.9 {ratio_units} (Normal) Range: 0.0-3.2 [...] 100-199 Comments: Please note reference interval change 48-Lue-110845:48 Rapid Flu (52207 x 2) Influenza A Ag negative (Normal) [...] redmond M.D.November 05, 2011 at 3:25:08 PM [id number] Signed GP/GP If you are the referring physician and would like to consult with theradiologist who provided this interpretation, please contact Yasmany Pond at [phone]. If this radiologist is unavailable, youwill be directed to another radiologist to assist. If you are a patient with a question regarding this report, ple asecontactyour referring physician directly. Professional Interpretation Provided By: [employer], Phone , These documents contain legally protected [...] redmond M.D.November 05, 2011 at 3:25:08 PM [id number] Signed GP/GP If you are the referring physician and would like to consult with theradiologist who provided this interpretation, please contact Yasmany Pond at [phone]. If this radiologist is unavailable, youwill be directed to another radiologist to assist. If you are a patient with a question regarding this report, ple asecontactyour referring physician directly. Professional Interpretation Provided By: [employer], Phone , These documents contain legally protected [...] 11/05/11 155 Sign by: Misael Hebert MD 49-Xtk-205319:20 METABOLIC PANEL, Comments: PATIENT WAS FASTINGPERFORMED BY: LabCoC[facility] Medical CenterYrcrpn3623 [facility] [id number] Information: [id number],2ND ORDER NO DRAW F COMPREHENSIVE (51403) ALT (SGPT) 31 [iU]/L (Normal) Range: 0-40 [...] Creatinine Clearance Comments: PATIENT WAS FASTINGPERFORMED BY: Whistlestop70 [facility] [id number] Information: 10/30@6AM 10/31@730AM Creatinine Clearance 58 mL/min [...] Qn, 24-Hr Comments: PATIENT WAS FASTINGPERFORMED BY: Easy Pairings6370 [facility] [id number] Urine Prot,24hr calculated 1023.8 {mg/24_hr} (Abnormal) Range: 30.0-150.0 Protein,Total,Urine 52.5 mg/dL (Abnormal) Range: 0.0-15.0 :04 HgA1C , Office (02073) HgA1C , Office 6.1 % (Normal) Range: 4.6 - 7.1 57-Xzn-59900:58 CRE Comments: appt 09/21/11 CREAT 1.0 mg/dL (Normal) Range: 0.6-1.0 50-Yzq-32901:00 BRAIN W/WO CONTRAST Radiology Report See Note [...] regarding this repor t, please call our 15T1iztecou line @ Dictated on 07/27/11 1040 by GAYE PEREZ MD RTranscribed on 07/28/111224 by ITS IMPORTSign by GAYE PEREZ MD on 07/28/111224 Sign by: GAYE PEREZ MD :54 Vitamin D Hydroxy (75760) Comments: PATIENT WAS FASTINGPERFORMED BY: Easy Pairings6370 [employer] [place] [id number] Vitamin D, 25-Hydroxy 48.8 ng/mL (Normal) Range: 30.0-100.0 Comments: Vitamin D deficiency has been defined by the [place] of[place]icine and an Endocrine Society practice guideline as alevel of serum 25-OH vitamin D less than 20 ng/mL (1,2).The Endocrine Society went on to further define vitamin Dinsufficiency as a level between 21 and 29 ng/mL (2).1. IOM ([place] of Medicine). 2010. Dietary reference intakes for calcium and D. [place]: The National Academies Press.2. Mira MF, [place], Tommy SWAIN, et al. Evaluation, treatment, and prevention of vitamin D deficiency: an Endocrine Society clinical practice guideline. JCEM. 2010; 96(7):1911-30. :54 LIPID PANEL (46301) Comments: PATIENT WAS FASTINGPERFORMED BY: Easy Pairings6370 [facility] [id number] LDL/HDL Ratio 1.0 {ratio_units} (Normal) Range: 0.0-3.2 LDL Cholesterol Calc 72 mg/dL (Normal) Range: 0-99 VLDL Cholesterol Cesar 21 mg/dL (Normal) Range: 5-40 HDL Cholesterol 69 mg/dL (Normal) Comments: According to ATP-III Guidelines, HDL-C >59 mg/dL is considered anegative risk factor for CHD. Triglycerides 106 mg/dL (Normal) Range: 0-149 Cholesterol, Total 162 mg/dL (Normal) Range: 100-199 95-Ibf-77632:54 CBC WITH MANUAL DIFF Comments: PATIENT WAS FASTINGPERFORMED BY: LabCoCape [facility] Medical CenterMhahyd7099 [facility] [id number] Information: ADD [id number] AND DRAW FEE 99 4748 (08813) Immature Grans (Abs) 0.0 {x10E3/uL} (Normal) Range: [...] PANEL, COMPREHENSIVE Comments: PATIENT WAS FASTINGPERFORMED BY: LabMym[facility] Gladwin6370 [facility] [id number] (39175) ALT (SGPT) 48 [iU]/L (Abnormal) Range: 0-40 [...] (Abnormal) Range: 65-99 :18 HgA1C , Office (59531) HgA1C , Office 6.1 % (Normal) Range: 4.6 - 7.1 59-Glh-30566:18 Blood Glucose , Office (06130) Blood Glucose , Office 103 (Normal) 79-Wzt-64757:00 ABDOMEN WITH AND W/O CONTRAST Radiology Report [...] radiologist regarding this report, please call our 61M7smxwnzy line @ Dictated on 03/18/11 1715 by Serge Pugh MDranscribed on 03/22/11 1401 by ITS IMPORTSign by Jeanette Hill MD on 03/22/11 1402 Sign by: Keaton MANN,Jeanette 31-Irh-823466:29 SERUM CRE & GFR CREAT,SERUM 1.1 mg/dL (Abnormal) Range: 0.6-1.0 06-Ipw-96205:00 BRAIN W/WO CONTRAST Radiology Report See Note [...] seen in the right frontal white matter uniform designer ior to themasswithout interval change. The cortical [...] Martin MD on 03/02/11 1730 Sign by: Mario MANNDonna 84-Buc-18777:00 UPPER EXT. JOINT ONLY(ROUTINE) Radiology Report See [...] Duncan on 03/04/11 1035 Sign by: DakotaAnkur 78-Ofv-047742:08 SHOULDER,MIN 2 VIEWS Radiology Report See Note [...] atelectasis, effusion or pneumothorax. Dictated on 01/29/11 7472 by Familia MANN,FrankTranscribed on 01/29/111714 by IT [...] on 02/01/11 1021 Sign by: HODA ALEJANDRO 84-Jsq-753904:57 SINUS/FACIAL BONE Radiology Report See Note (Normal) [...] addition, there is a small region of mwfuljuzyR3jbufhvltmr along the anterior margin of the mass, [...] on 01/19/111650 Sign by: GAYE PEREZ MD 07-Kxe-30507:00 BRAIN/HEAD W/WO CONTRAST Radiology Report See Note [...] 01/19/11 1446 by ITS IMPORTSign by Misael Heebrt MD on 01/19/11 1447 Sign by: Misael Hebert MD 16-Drw-556408:08 BILAT SCRN DIGITAL & CAD Radiology Report [...] CREATININE RATIO Comments: PATIENT NOT FASTINGPERFORMED BY: LabCoC[facility] Medical CenterGepwoh3084 [facility] [id number] (87993) AND (44215) Microalb/Creat Ratio 1028.4 {mg/g_creat} (Abnormal) Range: 0.0-30.0 Microalbumin, Urine 1341.0 ug/mL (Abnormal) Range: 0.0-17.0 Creatinine, Urine 130.4 mg/dL (Normal) Range: 15.0-278.0 :20 CBC WITH MANUAL DIFF (14618) Comments: PATIENT NOT FASTINGPERFORMED BY: LabCoWinslow [facility] Health Care CenterTjjunr5943 [facility] [id number] Immature Grans (Abs) 0.0 {x10E3/uL} (Normal) Range: [...] {x10E3/uL} (Normal) Range: 4.0-10.5 :20 LIPID PANEL (21520) Comments: PATIENT NOT FASTINGPERFORMED BY: Easy Pairings6370 [facility] [id number] LDL/HDL Ratio 0.9 {ratio_units} (Normal) Range: 0.0-3.2 [...] PANEL, COMPREHENSIVE Comments: PATIENT NOT FASTINGPERFORMED BY: MuseStormlin6370 [facility] [id number] (90261) ALT (SGPT) 28 [iU]/L (Normal) Range: 0-40 [...] (Abnormal) Range: 65-99 :39 HgA1C , Office (54735) HgA1C , Office 6.5 % (Normal) Range: 4.6 - 7.1 :39 Blood Glucose , Office (80662) Blood Glucose , Office 128 (Normal) 7-Nzf-481861:19 CBC With Differential/Platelet Comments: PATIENT WAS FASTINGPERFORMED BY: LabCoC[facility] Medical CenterUugrly0845 [facility] [id number] Immature Grans (Abs) 0.0 {x10E3/uL} (Normal) Range: [...] 3.80-5.10 WBC 5.6 {x10E3/uL} (Normal) Range: 4.0-10.5 2-Usj-811600:19 Comp. Metabolic Panel (14) Comments: PATIENT WAS FASTINGPERFORMED BY: LabCoC[facility] Medical CenterXzwkkv3883 [facility] [id number]; appt 01/11/11 ALT (SGPT) 18 [iU]/L (Normal) [...] Glucose, Serum 113 mg/dL (Abnormal) Range: 65-99 8-Awh-000578:19 Lipid Panel With LDL/HDL Comments: PATIENT WAS FASTINGPERFORMED BY: Whistlestop70 [place] [facility] [id number] Ratio LDL/HDL Ratio 1.0 {ratio_units} Range: 0.0-3.2 [...] 0.800 {uIU/mL} Comments: PATIENT WAS FASTINGPERFORMED BY: Whistlestop70 [facility] [id number] 2:19 (Normal) Range: 0.450-4.500 Vitamin D, 25-Hydroxy 44.0 ng/mL (Normal) Comments: PATIENT WAS FASTINGPERFORMED BY: Easy Pairings6370 [place] [facility] CenterPFI AcquisitionECU [facility] [id number] 2:19 Range: 32.0-100.0 Comments: Effective February 22, 2011 Vitamin D, 25-Hydroxy reference intervals will be changing to 30-100. .Recent studies consider the lower li sandra of 32.0 ng/mL to be athreshold for optimal health.Otf HAYES. J Nutr. 2004;135(2):317-22. :54 HgA1C , Office (48035) HgA1C , Office 6.6 % (Normal) Range: 4.6 - 7.1 :54 Blood Glucose , Office (47657) Blood Glucose , Office 134 (Normal) :40 Creatinine Clearance Comments: PERFORMED BY: Whistlestop70 [facility] [id number] Information: 10/07@7AM 10/08@3AM Creatinine Clearance 56 mL/min [...] Protein Total, Qn, 24-Hr Comments: PERFORMED BY: Easy Pairings6370 [facility] [id number] Urine Prot,24hr calculated 610.5 {mg/24_hr} (Abnormal) Range: 30.0-150.0 Protein,Total,Urine 40.7 mg/dL (Abnormal) Range: 0.0-15.0 :46 Vitamin D Hydroxy (66453) Comments: PATIENT WAS FASTINGPERFORMED BY: 24SymbolsCo Mfzzhq6435 [facility] [id number] Vitamin D, 25-Hydroxy 36.5 ng/mL (Normal) Range: 32.0-100.0 Comments: Recent studies consider the lower limit of 32.0 ng/mL to be athreshold for optimal health.Otf HAYES. J Nutr. 2004;135(2):317-22. :46 METABOLIC PANEL, COMPREHENSIVE Comments: PATIENT WAS FASTINGPERFORMED BY: LabCoAdaptis SolutionsRjbiel5771 [place] [facility] [id number] (58590) ALT (SGPT) 34 [iU]/L (Normal) Range: 0-40 [...] mg/dL (Abnormal) Range: 65-99 :46 LIPID PANEL (01193) Comments: PATIENT WAS FASTINGPERFORMED BY: Easy Pairings6370 [facility] [id number] LDL Cholesterol Calc 85 mg/dL (Normal) Range: [...] MANUAL DIFF Comments: PATIENT WAS FASTINGPERFORMED BY: Easy Pairings6370 [facility] [id number] Information: [id number]; appt 10/12/10 (88326) Immature Grans (Abs) 0.0 {x10E3/uL} (Normal) Range: [...] (Normal) Range: 4.0-10.5 :07 HgA1C , Office (67805) HgA1C , Office 6.6 % (Normal) Range: 4.6 - 7.1 :07 Blood Glucose , Office (56062) Blood Glucose , Office 114 (Normal) 51-Bbf-150780:00 Creatinine Clearance Comments: PERFORMED BY: LabCoC[facility] Medical CenterAadrzr9098 [facility] [id number] Information: 12/31@8AM 01/01@4AM Creatinine Clearance 48 mL/min [...] Creatinine, Serum 1.20 mg/dL (Abnormal) Range: 0.57-1.00 93-Kvr-048240:00 Protein Total, Qn, 24-Hr Comments: PERFORMED BY: LabCo Uspzbg8270 [place] [id number] Urine Prot,24hr calculated 1070.6 {mg/24_hr} (Abnormal) Range: 30.0-150.0 Protein,Total,Urine 79.3 mg/dL (Abnormal) Range: 0.0-15.0 07-Kue-912736:48 BILAT SCRN DIGITAL & CAD Radiology Report See Note (Normal) Comments: Exam Number: [id number] MAMMOGRAPHY - BILATERAL SCREENING INDICATION:Routine annual screening [...] of attaching a ResultCode to this exam.ADDENDUM: [id number] HPBI/MDS Reported By: MISAEL HEBERT 61-Diu-295525:48 DEXA BONE DENSITY STUDY (HP) Radiology Report See Note (Normal) Comments: Exam Number: [id number] CLINICAL:This is a 69-year-old female patient with postmenopausal screening. EXAMINATION:DUAL ENERGY X-RAY ABSORPTIOMETRY / DEXA. TECHNIQUE:Bone Density Measurements (BMD) of lumb ar spine and bilateral hipswere obtained using a [employer] scanner.. COMPARISON:None. FINDINGS: Lumbar Spine (L1-L4): g/cm2 [...] Osteoporosis Foundation http://www.nof.org Reported By: MISAEL HEBERT 81-Ugw-518166:29 HgA1C , Office (53407) HgA1C , Office 6.5 % (Normal) Range: 4.6 - 7.1 55-Qtc-007173:29 Blood Glucose , Office (01520) Blood Glucose , Office 109 (Normal) 47-Iqn-84194:05 CBC With Differential/Platelet Comments: PATIENT WAS FASTINGPERFORMED BY: LabCo Dccrcf8632 [facility] [id number] Immature Grans (Abs) 0.0 {x10E3/uL} (Normal) Range: [...] 3.80-5.10 WBC 3.9 {x10E3/uL} (Abnormal) Range: 4.0-10.5 86-Gwp-84362:05 Comp. Metabolic Panel (14) Comments: PATIENT WAS FASTINGPERFORMED BY: LabCoC[facility] Medical CenterSlmixf3224 [facility] [id number] ALT (SGPT) 20 [iU]/L (Normal) Range: 0-40 [...] With LDL/HDL Comments: PATIENT WAS FASTINGPERFORMED BY: MetaFLO Zlefua4248 [facility] [id number] Ratio HDL Cholesterol 54 mg/dL (Normal) Comments: [...] ng/mL (Normal) Comments: PATIENT WAS FASTINGPERFORMED BY: Easy Pairings6370 [facility] [id number] :05 Range: 32.0-100.0 Comments: Recent studies consider the lower limit of 32.0 ng/mL to be athreshold for optimal health.Otf HAYES. J Nutr. 2004;135(2):317-22. 10-Cjw-54143:41 SPLEEN (HP) Radiology Report See Note (Normal) Comments: Exam Number: [id number] ULTRASOUND OF THE SPLEEN A goal directed ultrasound of the spleen was obtained. HISTORYThitihago is a 69-year-old female patient with a history ofthrombocytopenia. FINDINGSThe spleen i s not enlarged. It measures 11.7 cm in longitudinaldimension, by 5.4 cm in transverse dimension, by 4.7 cm in APdimension. It is of homogeneous echotexture. No focal lesion isseen. IMPRESSIONNormal s plenic sonogram. Reported By: MISAEL HEBERT 17-Jun-2009 C-Reactive Protein, 0.5 mg/L (Normal) Comments: PERFORMED BY: Whistlestop70 [facility]PSCone [facility] [id number] 10:54 Quant Range: 0.0-4.9 17-Jun-2009 Hemoglobin A1c 6.3 % (Abnormal) Comments: PERFORMED BY: CyprotexC[facility] [id number] 10:54 Range: 4.8-5.6 Comments: Increased risk for diabetes: 5.7 - 6.4Diabetes: >6.4Glycemic control for adults with diabetes: <7.0.Please note reference interval change 17-Jun-2009 Sedimentation 4 mm/h (Normal) Comments: PERFORMED BY: Whistlestop70 ikeGPSCone Health [facility] Hospital [id number] 10:54 Rate-Westergren Range: 0-30 17-Jun-2009 Vitamin B12 1372 pg/mL Comments: PERFORMED BY: [employer] [facility] [id number] 10:54 (Abnormal) Range: 211-911 Comments: Effective July 14, 2009, Vitamin B12 will bechanging to the [place] ECLIA methodology. Thereference interval will be changing to:211 - 946 pg/mL 17-Jun-2009 Vitamin D, 25-Hydroxy 37.7 ng/mL Comments: PERFORMED BY: EVE [facility]SymbolsK[facility] Kcwyvv3567 [facility] [id number] 10:54 (Normal) Range: 32.0-100.0 Comments: Recent studies consider the lower limit of 32.0 ng/mL to be athreshold for optimal health.Otf HAYES. J Nutr. 2004;135(2):317-22. 55-Msv-619922:34 Vitamin D Hydroxy Comments: PATIENT NOT FASTINGPERFORMED BY: LabCoC[facility] Medical CenterOdaevb4204 [facility] [id number] Information: [id number],2ND ORDER NO DRAW F EE (09470) Vitamin D, 25-Hydroxy 48.5 ng/mL (Normal) Range: 30.0-100.0 Comments: Vitamin D deficiency has been defined by the [place] of[place]icine and an Endocrine Society practice guideline as alevel of serum 25-OH vitamin D less than 20 ng/mL (1,2).The Endocrine Society went on to further define vitamin Dinsufficiency as a level between 21 and 29 ng/mL (2).1. IOM ([place] of Medicine). 2010. Dietary reference intakes for calcium and D. [place]: The National Academies Press.2. Mira MF, [place], Tommy SWAIN, et al. Evaluation, treatment, and prevention of vitamin D deficiency: an Endocrine Society clinical practice guideline. JCEM. 2010; 96(7):1911-30. :50 HgA1C , Office (60831) HgA1C , Office 6.7 % (Normal) Range: 4.6 - 7.1 :50 Blood Glucose , Office (94654) Blood Glucose , Office 117 (Normal) 56-Hcf-313983:12 CBC With Differential/Platelet Comments: PERFORMED BY: LabCo Lbsaoj1183 [facility] [id number] Information: 06/10@6AM3/10@330AM Hematology Comments: Note: (Normal) Comments: [...] 3.80-5.10 WBC 3.6 {x10E3/uL} (Abnormal) Range: 4.0-10.5 81-Mge-687085:12 Comp. Metabolic Panel (14) Comments: PERFORMED BY: LabCoC[facility] Medical CenterPevxof6873 [facility] [id number] Alkaline Phosphatase, S 68 [iU]/L (Normal) Range: [...] Glucose, Serum 124 mg/dL (Abnormal) Range: 65-99 48-Nrb-803413:12 Creatinine Clearance Comments: PERFORMED BY: [facility]texC[facility] [id number] Creatinine Clearance 49 mL/min (Abnormal) Range: 88-128 Comments: The above range is based on 1.73 square meter average body surfacearea. Creatinine, Ur 24hr 800.0 {mg/24_hr} (Normal) Range: 800.0-1800.0 Creatinine, Urine 40.0 mg/dL (Normal) Range: 15.0-278.0 75-Hyw-325366:12 Lipid Panel With LDL/HDL Comments: PERFORMED BY: [facility]Around.[facility]EC[facility] [id number] Ratio HDL Cholesterol 61 mg/dL (Normal) Comments: According to ATP-III Guidelines, HDL-C >59 mg/dL is considered anegative risk factor for CHD. LDL Cholesterol Calc 74 mg/dL (Normal) Range: 0-99 LDL/HDL Ratio 1.2 {ratio_units} (Normal) Range: 0.0-3.2 VLDL Cholesterol Cesar 17 mg/dL (Normal) Range: 5-40 Cholesterol, Total 152 mg/dL (Normal) Range: 100-199 Triglycerides 87 mg/dL (Normal) Range: 0-149 16-Ewq-440521:12 Protein Total, Qn, 24-Hr Comments: PERFORMED BY: [employer] Nwatpc0476 [facility] [id number] Urine Prot,24hr calculated 1172.0 {mg/24_hr} Range: 30.0-150.0 (Abnormal) Protein,Total,Urine 58.6 mg/dL (Abnormal) Range: 0.0-15.0 TSH 1.280 {uIU/mL} Comments: PERFORMED BY: TaskEasy70 [facility] [id number] 1:12 (Normal) Range: 0.450-4.500 :58 HgA1C , Office (51796) HgA1C , Office 6.0 % (Normal) Range: 4.6 - 7.1 :58 Blood Glucose , Office (57071) Blood Glucose , Office 113 (Normal) 4-Vum-573024:03 CBC With Differential/Platelet Comments: PATIENT WAS FASTINGPERFORMED BY: Spin Transfer TechnologiesCape Regional Medical CenterUzhtdq7702 [facility] [id number] Baso (Absolute) 0.0 {x10E3/uL} (Normal) Range: 0.0-0.2 [...] 11.7-15.0 WBC 3.2 {x10E3/uL} (Abnormal) Range: 4.0-10.5 2-Dmz-451374:03 Comp. Metabolic Panel (14) Comments: PATIENT WAS FASTINGPERFORMED BY: LabCoCape Regional Medical CenterEqkbtd5732 [facility] [id number] A/G Ratio 2.0 (Normal) Range: 1.1-2.5 Albumin, [...] With LDL/HDL Comments: PATIENT WAS FASTINGPERFORMED BY: Easy Pairings6370 [facility] [id number] Ratio Cholesterol, Total 167 mg/dL (Normal) Range: [...] ng/mL (Normal) Comments: PATIENT WAS FASTINGPERFORMED BY: Easy Pairings6370 [facility] [id number] :03 Range: 32.0-100.0 Comments: Recent studies consider the lower limit of 32.0 ng/mL to be athreshold for optimal health.Otf HAYES. J Nutr. 2004;135(2):317-22. 88-Oyg-039006:32 Urinalysis, Office (44594) UA - BILIRUBIN Negative (Normal) UA - BLOOD Hemolyzed Trace (Normal) UA - GLUCOSE Negative (Normal) UA - KETONES Negative mg/dL (Normal) UA - LEUKOCYTE ESTERASE Negative (Normal) UA - NITRITE Negative (Normal) UA - PH 6.5 (Normal) UA - PROTEIN 300 mg/dL (Normal) UA - SPECIFIC GRAVITY 1.020 (Normal) URINE UROBILINGN JATINDER TIMED 2 mg/dL (Normal) 0-Vjw-295907:19 URINE SETH CULTURE-JATINDER COL Comments: PATIENT NOT FASTINGClinical Information: SRC:UR ADD [id number] PERFORMED BY: [place] 1000CHI Software TechnologySaint Mary's Hospital of Blue SpringsPFI AcquisitionECU Health [facility] Hospital [id number] COUNT (03828) Result 1 ECV (Normal) Comments: Escherichia coli, [...] report (Normal) Culture,Comprehensiv e 09-Jan-20098:17 Urinalysis, Office (18760) UA - BILIRUBIN Negative (Normal) UA - BLOOD Hemolyzed Large (Normal) UA - GLUCOSE Negative (Normal) UA - KETONES Negative mg/dL (Normal) UA - LEUKOCYTE ESTERASE Moderate (Normal) UA - NITRITE Negative (Normal) UA - PH 7.0 (Normal) UA - PROTEIN 300 mg/dL (Normal) UA - SPECIFIC GRAVITY 1.020 (Normal) URINE UROBILINGN JATINDER TIMED 2 mg/dL (Normal) 0-Gpf-834314:05 Comp. Metabolic Panel (14) Comments: PATIENT WAS FASTINGPERFORMED BY: Whistlestop70 [facility] [id number] A/G Ratio 1.7 (Normal) Range: 1.1-2.5 Albumin, [...] Sodium, Serum 142 mmol/L (Normal) Range: 135-145 1-Tbt-984355:05 Hepatic Function Panel (7) Comments: PATIENT WAS FASTINGPERFORMED BY: [employer] [facility] Vifgjw1528 [facility] [id number] Bilirubin, Direct 0.12 mg/dL (Normal) Range: 0.00-0.40 0-Yus-105942:05 Lipid Panel With LDL/HDL Comments: PATIENT WAS FASTINGPERFORMED BY: [employer] [facility] Xahntd9341 [facility] [id number] Ratio Cholesterol, Total 170 mg/dL (Normal) Range: [...] mg/dL (Normal) Comments: PATIENT WAS FASTINGPERFORMED BY: [employer] Qrrvfq0157 [facility] [id number] :05 Range: 2.5-4.5 PTH, Intact 19 pg/mL (Normal) Comments: PATIENT WAS FASTINGPERFORMED BY: Spin Transfer TechnologiesCape Regional Medical CenterYaemed0783 [facility] [id number] :05 Range: 15-65 Vitamin D, 25-Hydroxy 38.9 ng/mL (Normal) Comments: PATIENT WAS FASTINGPERFORMED BY: [employer] Kayafy8307 [facility] [id number] :05 Range: 32.0-100.0 Comments: Recent studies consider the lower limit of 32.0 ng/mL to be athreshold for optimal health.Otf HAYES. J Nutr. 2004;135(2):317-22. :40 HgA1C , Office (39253) HgA1C , Office 6.0 % (Normal) Range: 4.6 - 7.1 :40 Blood Glucose , Office (59042) Blood Glucose , Office 109 (Normal) :42 CBC With Differential/Platelet Comments: PATIENT WAS FASTINGPERFORMED BY: LabCoCape Regional Medical CenterSjelrr7838 [facility] [id number] Baso (Absolute) 0.0 {x10E3/uL} (Normal) Range: 0.0-0.2 [...] 11.7-15.0 WBC 4.2 {x10E3/uL} (Normal) Range: 4.0-10.5 65-Wzj-430049:42 Comp. Metabolic Panel (14) Comments: PATIENT WAS FASTINGPERFORMED BY: LabCoCape Regional Medical CenterDgvdfb3568 [facility] [id number] A/G Ratio 1.6 (Normal) Range: 1.1-2.5 Albumin, [...] Sodium, Serum 140 mmol/L (Normal) Range: 135-145 3-Jgp-278891:09 FECAL OCCULT HGB ASSAY, QUAL, 1-3 SIMULTANEOUS DETERMINATIONS (04681) FECAL OCCULT HGB ASSAY, QUAL, 1-3 SIMULTANEOU neg (Normal) :42 Microscopic Examination Comments: PATIENT WAS FASTINGPERFORMED BY: [facility] Yqyppy8970 [facility] [id number] Bacteria None seen (Normal) Cast Type Hyaline casts (Normal) Casts Present {/lpf} (Abnormal) Epithelial Cells (non renal) 0-10 {/hpf} (Normal) Range: 0 - 10 Mucus Threads Present (Normal) RBC 0-3 {/hpf} (Normal) Range: 0 - 3 WBC 0-5 {/hpf} (Normal) Range: 0 - 5 :42 URINALYSIS W/O MICRO (90959) Comments: PATIENT WAS FASTINGPERFORMED BY: Senstore [facility] Yrmvdj8657 [facility] [id number] Appearance Clear (Normal) Bilirubin Negative (Normal) Glucose Negative (Normal) Ketones Negative (Normal) Microscopic Examination See below: (Normal) Nitrite, Urine Negative (Normal) Occult Blood Negative (Normal) pH 5.0 (Normal) Range: 5.0-7.5 Protein 1+ (Abnormal) Specific [place] 1.013 (Normal) Range: 1.005-1.030 Urine-Color Yellow (Normal) Urobilinogen,Semi-Qn 0.2 mg/dL (Normal) Range: 0.0-1.9 WBC Esterase 1+ (Abnormal) :42 MICROALBUMIN: CREATININE RATIO Comments: PATIENT WAS FASTINGPERFORMED BY: ParkAround.comECU Health [facility] Hospital [id number] (96217) AND (24520) Creatinine, Urine 76.1 mg/dL (Normal) Range: 15.0-278.0 Microalb/Creat Ratio 292.1 {ug/mg_creat} (Abnormal) Range: 0.0-30.0 Microalbumin, Urine 222.3 ug/mL (Abnormal) Range: 0.0-17.0 :42 CBC WITH MANUAL DIFF (89276) Comments: PATIENT WAS FASTINGClinical Information: ADD DRAW FEE 037961 ADD J 60998 PERFORMED BY: Easy Pairings6370 [facility] [id number] Baso (Absolute) 0.0 {x10E3/uL} (Normal) Range: 0.0-0.2 [...] PANEL, COMPREHENSIVE Comments: PATIENT WAS FASTINGPERFORMED BY: LabCoCape Regional Medical CenterMngmtg4571 [facility] [id number] (01752) A/G Ratio 1.8 (Normal) Range: 1.1-2.5 Albumin, [...] Sodium, Serum 141 mmol/L (Normal) Range: 135-145 5-Icv-234827:23 HgA1C , Office (65094) HgA1C , Office 6.0 % (Normal) Range: 4.6 - 7.1 8-Cpn-679977:23 Blood Glucose , Office (99443) Blood Glucose , Office 103 (Normal) 28-Atm-447099:38 CBC WITH MANUAL DIFF (39561) Comments: PATIENT WAS FASTINGClinical Information: ADD DRAW FEE 349397 ADD J 57484 PERFORMED BY: EVE LabCoCape Regional Medical CenterImplrn3947 [facility] [id number] Baso (Absolute) 0.0 {x10E3/uL} (Normal) Range: 0.0-0.2 [...] 11.7-15.0 WBC 4.0 {x10E3/uL} (Normal) Range: 4.0-10.5 47-Skx-065470:38 METABOLIC PANEL, COMPREHENSIVE Comments: PATIENT WAS FASTINGPERFORMED BY: LabCoCape Regional Medical CenterXcilqo2433 [facility] [id number] (74180) A/G Ratio 1.8 (Normal) Range: 1.1-2.5 Albumin, [...] Sodium, Serum 142 mmol/L (Normal) Range: 135-145 16-Rjj-000335:38 HEPATIC FUNCTION PANEL Comments: PATIENT WAS FASTINGPERFORMED BY: [place] [id number] [facility] [id number] (30286) Bilirubin, Direct 0.08 mg/dL (Normal) Range: 0.00-0.40 30-Mlg-198842:38 LIPID PANEL (27859) Comments: PATIENT WAS FASTINGPERFORMED BY: [place] [id number] [facility] [id number] Cholesterol, Total 200 mg/dL (Abnormal) Range: 100-199 [...] Cholesterol Cesar 18 mg/dL (Normal) Range: 5-40 2-Gvx-672556:36 HgA1C , Office (19551) HgA1C , Office 6.1 % (Normal) Range: 4.6 - 7.1 :36 Blood Glucose , Office (57829) Blood Glucose , Office 98 (Normal) 38-Ian-144825:33 CBC With Differential/Platelet Comments: PATIENT WAS FASTINGClinical Information: SRC:UR PERFORMED BY: [place] [id number] [facility] [id number] Baso (Absolute) 0.0 {x10E3/uL} (Normal) Range: 0.0-0.2 [...] 11.7-15.0 WBC 4.8 {x10E3/uL} (Normal) Range: 4.0-10.5 95-Jvi-228174:33 Comp. Metabolic Panel (14) Comments: PATIENT WAS FASTINGPERFORMED BY: LabCoCape Regional Medical CenterEvlvng0771 [facility] [id number] A/G Ratio 1.6 (Normal) Range: 1.1-2.5 Albumin, [...] Serum 92 mg/dL (Normal) Range: 65-99 If -Malaysian 57 mL/min/1.73 Comments: Note: Persistent reduction for [...] Sodium, Serum 142 mmol/L (Normal) Range: 135-145 24-Twu-263472:33 Lipid Panel With LDL/HDL Comments: PATIENT WAS FASTINGPERFORMED BY: ParkAround.[email or web address] science [place] [id number] Ratio Cholesterol, Total 174 mg/dL (Normal) Range: 100-199 HDL Cholesterol 67 mg/dL (Normal) Comments: According to ATP-III Guidelines, HDL-C >59 mg/dL is considered anegative risk factor for CHD. LDL Cholesterol Calc 85 mg/dL (Normal) Range: 0-99 LDL/HDL Ratio 1.3 {ratio_units} (Normal) Range: 0.0-3.2 Triglycerides 110 mg/dL (Normal) Range: 0-149 VLDL Cholesterol Cesar 22 mg/dL (Normal) Range: 5-40 37-Efs-780690:33 Urine Culture,Comprehensive Comments: PATIENT WAS FASTINGPERFORMED BY: ParkAround.comECU Health [facility] Hospital [id number] Antimicrobial MIHEAD (Normal) Comments: S = Susceptible; [...] Enterococcus. (Normal) Urine Final report (Normal) Culture,Comprehensive 6-Ofk-721261:10 HgA1C , Office (50233) HgA1C , Office 5.9 % (Normal) Range: [...] mL (Normal) URINE PROTEIN 20.0 mg/dL (Abnormal) 58-Rft-030592:17 Urine Culture,Comprehensive Comments: Clinical Information: SRC:UR PERFORMED BY: [facility] Ugloxy7260 [facility] [id number] Result 1 CNSNSS (Normal) Comments: Coagulase negative Staphylococcus species, not Staphylococcussaprophyticus.600 Colonies/mLSusceptibility or resistance of staphylococci to oxacillin predictssusceptibility or resistance to (a) other be jr-isfibqnrb-qiagjrbfglfmdkbsg such as cloxacillin and dicloxacillin, (b) combinationsof a penicillin and a beta-lactamase inhibitor, and(c) anti- staphylococcal cephalosporins. Routine testing of otherp enicillins, beta-lactam/beta-lactamase inhibitor combinations,cephems, and carbapenems is not advised by the CLSI Standards(Z259-U60, 2005). S = Susceptible; I = Intermediate; R = Resistant * P = Positive; N = Negative MICS are expressed in micrograms per mL Antibiotic RSLT#1 RSLT#2 RSLT#3 RSLT#4Ciprofloxacin RGentami kristian SLevofloxacin RNitrofurantoin SOxacillin SPenicillin RRifampin STrimethoprim/Sulfa SVancomycin S Urine Final report Culture,Comprehensi (Normal) ve 4-Brv-694143:53 Metabolic Panel, Basic (66628) Comments: PATIENT NOT FASTINGClinical Information: ADD DRAW FEE 126558 ADD J 51433 PERFORMED BY: LabCoCape Regional Medical CenterTekgkv4810 [facility] [id number] BUN 39 mg/dL (Abnormal) Range: 5-26 BUN/Creatinine Ratio 33 (Abnormal) Range: 8-27 Calcium, Serum 9.8 mg/dL (Normal) Range: 8.5-10.6 Carbon Dioxide, Total 22 mmol/L (Normal) Range: 20-32 Chloride, Serum 103 mmol/L (Normal) Range: 97-108 Creatinine, Serum 1.20 mg/dL (Abnormal) Range: 0.57-1.00 Glom Filt Rate, Est 45 mL/min/1.73 Range: 60-128 (Abnormal) Glucose, Serum 101 mg/dL (Abnormal) Range: 65-99 If -Malaysian 55 mL/min/1.73 Range: 60-128 (Abnormal) Comments: Note: Persistent reduction for 3 months or more in an eGFR<60 mL/min/1.73 m2 defines CKD. Patients with eGFR values>/=60 mL/min/1.73 m2 may also have CKD if evidence of persistentproteinuria is present. Additional information may be found [email or web address].org. Potassium, Serum 5.1 mmol/L (Normal) Range: 3.5-5.2 Sodium, Serum 139 mmol/L (Normal) Range: 135-145 :09 HgA1C , Office (67936) HgA1C , Office 6.1 % (Normal) Range: 4.6 - 7.1 :09 Blood Glucose , Office (11847) Blood Glucose , Office 163 (Normal) :37 SPINE,LUMBAR (ROUTINE) Radiology Report See Note (Normal) Comments: Exam Number: [id number] MRI LUMBAR SPINE CLINICAL STATEMENTLow back pain [...] onboth sides. Reported By: MODESTA COPE M.D. 15-Cju-173097:00 BILAT SCRN DIGITAL & CAD Radiology Report See Note (Normal) Comments: Exam Number: [id number] MAMMOGRAM, BILATERAL SCREENING DIGITAL AND CAD HISTORYRoutine screening. Full field digital images were obtained in mediolateral oblique andcraniocaudal projections. CAD images w ere reviewed. The current study is [facility]. A small metal marker is placed [...] mammograms werealso examined with computer-aided detection software ([employer].). Reported By: DONNA OJEDA M.D. 27-Ano-718729:59 DEXA BONE DENSITY STUDY (HP) Radiology Report See Note (Normal) Comments: Exam Number: [id number] BONE DENSITOMETRY HISTORYPost menopausal. TECHNIQUE Bone densitometry [...] Report See Note (Normal) Comments: Exam Number: [id number] FIVE VIEW LUMBAR SPINE AP, lateral, both [...] Ur Comments: PATIENT NOT FASTINGPERFORMED BY: EVE AAVLifelin6370 [facility] [id number] Creatinine, Urine 46.8 mg/dL (Normal) Microalb/Creat Ratio 712.8 {ug/mg_creat} (Abnormal) Range: 0.0-30.0 Microalbum.,U,Random 333.6 ug/mL (Abnormal) Range: 0.0-17.0 :13 Creatinine Clearance Comments: PATIENT NOT FASTINGClinical Information: HT-5'4'' WT-184 PERFORMED BY: EVE AAVLifelin6370 [facility] [id number] Creatinine Clearance 40 mL/min (Abnormal) Range: 88-128 Comments: The above range is based on 1.73 square meter average body surfacearea. Creatinine, Serum 1.30 mg/dL (Normal) Range: 0.50-1.50 Creatinine, Ur 24hr 754.8 {mg/24_hr} Range: 800.0-1800.0 (Abnormal) Creatinine, Urine 44.4 mg/dL (Normal) Glom Filt Rate, Est 41 mL/min (Abnormal) Range: 60-128 If -Malaysian 50 mL/min (Abnormal) Range: 60-128 Comments: Note: Persistent reduction for 3 months or more in an eGFR<60 mL/min/1.73 m2 defines CKD. Patients with eGFR values>/=60 mL/min/1.73 m2 may also have CKD if evidence of persistentproteinuria is present. .Additional information may be found at www.kdoqi.org. 05-Sep-20079:13 Protein Total, Qn, 24-Hr Comments: PATIENT NOT FASTINGPERFORMED BY: EVE [facility] Zhcplo1128 [facility] [id number] Urine Protein,Total,Urine 49.0 mg/dL (Abnormal) Range: 0.0-15.0 Prt, 24hr calculated 833.0 {mg/24_hr} (Abnormal) Range: 30.0-150.0 08-Avy-633417:00 CBCD,SMEAR DIFF CELLS COUNTED 100 (Normal) EOS [...] 47-70 WBC 4.3 K/mm3 (Abnormal) Range: 4.4-11.0 13-Zwa-321533:00 COMP METABOLIC A/G 1.4 {RATIO} (Normal) Range: [...] T PROT 6.6 g/dL (Normal) Range: 6.4-8.2 46-Iqm-502167:00 D BILI 0.06 mg/dL (Normal) Range: 0.00-0.30 40-Kny-964087:00 LIPID CHOL 175 mg/dL (Normal) Comments: <200 [...] mg/dL VLDL 12 mg/dL (Normal) Range: 5-40 70-Jqv-707103:00 TSH 0.84 {uIU/mL} (Normal) Range: 0.34-4.82 Plan [...] uncertain behavior of skin Planned Observations PARATHORMONE (02986)Indication: Chronic kidney disease, stage 3 On: 06-Mar-20188:59 Request Comments: fax to [phone] MICROALBUMIN: CREATININE RATIO (15311) AND (76779)Indication: Chronic kidney disease, stage 3 On: 06-Mar-20188:55 Request Comments: fax to [phone] RENAL FUNCTION PANEL (78146)Indication: Chronic kidney disease, stage 3 On: :54 Request Comments: fax to [phone] MAGNESIUM (73029)Indication: Chronic kidney disease, stage 3 On: :54 Request Comments: fax to [phone] Parathyroid Hormone-related Peptide (PTH-rP) (51735)Indication: Chronic kidney disease, stage 3 On: 06-Mar-20188:54 Request Comments: fax to [phone] CBC W/AUTO DIFF WBC (32200)Indication: Chronic kidney disease, stage 3 On: 04-Bil-043122:25 Request Parathyroid Hormone-related Peptide (PTH-rP) (93996)Indication: Vitamin D deficiency On: 5-Bwe-822787:43 Request Comments: send results to Dr. Santana fax: [phone] VITAMIN D, 1, 25-DIHYDROXY (01044)Indication: Vitamin D deficiency On: 7-Mwr-533996:42 Request Comments: send results to Dr. Santana fax: [phone] Clostridium difficile Toxin A+B, EIA (89165)Indication: Chronic diarrhea On: 8-Kln-937630:36 Request Vitamin D Hydroxy (38682)Indication: Osteopenia On: 7-Xbo-994443:20 Request CBC W/AUTO DIFF WBC (99966)Indication: Hypertension, benign On: 0-Qei-830853:16 Request CALCIFEDIOL (60031)Indication: Chronic kidney disease, stage 3 On: :04 Request Renal function Panel (69013)Indication: Chronic kidney disease, stage 3 On: :04 Request Magnesium (01128)Indication: Chronic kidney disease, stage 3 On: :04 Request MICROALBUMIN: CREATININE RATIO (65060) AND (18559)Indication: Chronic kidney disease, stage 3 On: 03-Aug-20169:04 Request Parathyroid Hormone-related Peptide (PTH-rP) (09552)Indication: Chronic kidney disease, stage 3 On: :04 Request T4, FREE (THYROXINE) (45731)Indication: Cold feeling On: 03-Aug-20168:31 Request TSH (53231)Indication: Cold feeling On: 03-Aug-20168:31 Request PARATHORMONE (80934)Indication: Chronic kidney disease, stage 3 On: :18 Request Comments: copy to Dr. Santana [phone] CALCIFIDIOL (27305) VIT D 25Indication: Chronic kidney disease, stage 3 On: :16 Request Comments: copy to Dr. Santana [phone] MAGNESIUM (21716)Indication: Chronic kidney disease, stage 3 On: :15 Request Comments: copy to Dr. Santana [phone] PROTEIN/CREAT RATIO, URINE (39553)Indication: Chronic kidney disease, stage 3 On: :15 Request Comments: copy to Dr. Santana [phone] LIPID PANEL (66099)Indication: Mixed hyperlipidemia On: :21 Request CBC with auto diff (35394)Indication: Diabetes mellitus type II, controlled On: :20 Request METABOLIC PANEL, COMPREHENSIVE (50974)Indication: Diabetes mellitus type II, controlled On: 33-Tub-784329:20 Request HGB A1C (44211)Indication: Diabetes mellitus type II, controlled On: 05-Hei-030427:10 Request Vitamin D Hydroxy (17893)Indication: Osteopenia On: 52-Weh-253328:08 Request TSH (THYROID STIMULATING HORMONE) (87551)Indication: Depression On: 82-Box-286806:06 Request LIPID PANEL (25240)Indication: Other and unspecified hyperlipidemia On: 35-Jog-890420:06 Request CBC with auto diff (21707)Indication: Diabetes mellitus type II, controlled On: 77-Jvn-229942:06 Request METABOLIC PANEL, COMPREHENSIVE (16112)Indication: Diabetes mellitus type II, controlled On: 15-Myk-703166:06 Request CREATININE CLEARANCE (71975)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 On: 5-Nsw-344203:38 Request Total Protein,24 Hour Urine (28250)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 On: 7-Whd-045161:38 Request CBC W/AUTO DIFF WBC (50198)Indication: Diabetes mellitus type II, controlled On: 38-Zsu-910247:11 Request HgA1C , Office (58086)Indication: Diabetes mellitus type II, controlled On: 66-Jla-972196:23 Request CULTURE, SPUTUM (49389)Indication: Cough On: 80-Uhk-260008:47 Request HEPATIC FUNCTION PANEL (93121)Indication: Elevated LFTs On: 71-Bol-18991:24 Request CREATININE CLEARANCE (67489)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 On: 37-Yqx-23352:33 Request 24 hour urine for Protein (24414)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 On: 21-Hhg-98965:33 Request CBC WITH MANUAL DIFF (18646)Indication: Diabetes mellitus type II, controlled On: :29 Request METABOLIC PANEL, COMPREHENSIVE (81178)Indication: Diabetes mellitus type II, controlled On: :29 Request LIPID PANEL (97142)Indication: Mixed hyperlipidemia On: :29 Request CREATININE CLEARANCE (22018)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 On: :45 Request 24 hour urine for Protein (90704)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 On: 1-Taa-663257:45 Request CREATININE CLEARANCE (31182)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 On: 69-Phi-697887:57 Request 24 hour urine for Protein (99269)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 On: 98-Can-512822:57 Request METABOLIC PANEL, COMPREHENSIVE (64549)Indication: Hypertension, benign On: :32 Request LIPID PANEL (71449)Indication: Mixed hyperlipidemia On: :32 Request C-REACTIVE PROTEIN (28750)Indication: Fatigue On: :24 Request SED RATE ERYTHROCYTE (90297)Indication: Headache On: :24 Request VITAMIN B-12 (CYANOCOBALAMIN) (74880)Indication: Fatigue On: :24 Request LIPID PANEL (76988)Indication: Mixed hyperlipidemia On: :41 Request CBC WITH MANUAL DIFF (59747)Indication: Hypertension, benign On: 3-Vtu-818803:41 Request METABOLIC PANEL, COMPREHENSIVE (10496)Indication: Hypertension, benign On: 5-Sfo-157232:41 Request CREATININE CLEARANCE (09262)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 On: 8-Shp-872109:34 Request 24 hour urine for Protein (02702)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 On: :34 Request LIPID PANEL (77509)Indication: Mixed hyperlipidemia On: 4-Tib-195791:22 Request HEPATIC FUNCTION PANEL (74614)Indication: Mixed hyperlipidemia On: 0-Yaa-077548:22 Request Vitamin D Hydroxy (07393)Indication: Hypercalcemia On: 9-Ofu-438071:22 Request PHOSPHORUS (90688)Indication: Hypercalcemia On: 5-Hbp-558640:22 Request PARATHORMONE (58006)Indication: Hypercalcemia On: 9-Zhn-349169:22 Request METABOLIC PANEL, COMPREHENSIVE (77186)Indication: Hypercalcemia On: 4-Lnt-840503:22 Request CBC WITH MANUAL DIFF (46997)Indication: fsgs On: :58 Request LIPID PANEL (25601)Indication: Mixed hyperlipidemia On: :58 Request METABOLIC PANEL, COMPREHENSIVE (69814)Indication: Hypertension, benign On: :58 Request Blood Glucose , Office (89636)Indication: Diabetes mellitus type II, controlled On: 2-Jij-756117:10 Request TSH (42133)Indication: Diabetes mellitus type II, controlled On: 99-Zsc-392243:51 Request METABOLIC PANEL, COMPREHENSIVE (35104)Indication: Diabetes mellitus type II, controlled On: 06-Vvo-532213:51 Request CBC WITH MANUAL DIFF (72295)Indication: Diabetes mellitus type II, controlled On: 27-Pla-705950:51 Request MICROALBUMIN: CREATININE RATIO (81733) AND (78365)Indication: Diabetes mellitus type II, controlled On: 28-Pcu-979406:51 Request HEPATIC FUNCTION PANEL (79979)Indication: Other and unspecified hyperlipidemia On: 00-Kkv-518097:51 Request LIPID PANEL (89508)Indication: Other and unspecified hyperlipidemia On: 25-Zry-335446:51 Request HgA1C , Office (52084)Indication: Diabetes mellitus type II, controlled On: 32-Tdw-997961:37 Request Blood Glucose , Office (13096)Indication: Diabetes mellitus type II, controlled On: 06-Nak-572348:37 Request Planned Encounters Medical; [facility] 3 Month FU - On: 22-Mar-2018 11:00 [facility] Fast DO, Chaparrita A Fast DO, Chaparrita A Planned Procedures DRAIN/INJECT MAJOR JOINT OR BURSA On: 13-Mar-2018 Intent ()By: SHONDA Andrade Comments: 2 cc Marcaine lot# [id number] exp: 1 cc Kenalog lot# [id number] exp DRAIN/INJECT MAJOR JOINT OR BURSA On: 07-Feb-2018 Intent ()By: Keri Singh MD Comments: lot no [id number] exp date 2017-12-26 DRAIN/INJECT MAJOR JOINT OR BURSA On: 31-Jan-2018 Intent ()By: Keri Singh MD Comments: Lot#[id number]:3-85-87Mihtb:intra articular Site given:left knee Given By: Dr. Singh ABN signed DRAIN/INJECT MAJOR JOINT OR BURSA On: 24-Jan-2018 Intent ()By: Keri Singh MD Comments: Lot#[id number]: 2-87-34Ifygn:intra artciular Site given:left knee Given By: Dr. Singh ABN signed Euflexxa Echo CompleteBy: Fast DO, Chaparrita A On: 16-Dec-2017 Intent Fast DO, Chaparrita A Flu Vaccine (Quadrivalent) 10336Cv: On: 16-Dec-2017 Intent Fast DO, Chaparrita A Fast DO, Chaparrita A Comments: Lot: [id number]: 10/01/18Site: L dltd, IMDose prefilled syringegiven by: Jamie reviewed and ABN signed Kenalog Injection, 10 mgm On: 03-Oct-2017 Intent (J3301)By: Keri Singh MD Comments: lot: [id number]: 11/20site/route: L knee Cartoid DopplerBy: Fast DO, Chaparrita A On: 12-Sep-2017 Intent Fast DO, Chaparrita A Comments: november DIGITAL TOMOSYNTHESIS OF On: 12-Sep-2017 Intent BREAST (22167)By: Ambrocio WOLFF Chaparrita A Comments: due november 02 Ambrocio DO, Chaparrita A Kenalog Injection, 10 mgm On: 06-Jun-2017 Intent (J3301)By: Keri Singh MD Comments: bupivacacine 0.5% [id number] exp 09-20 kenalog 40 mg injected in. [id number] 07-21 MRI OF BRAIN WITH AND WITHOUT On: 06-Jun-2017 Intent CONTRAST (18055)By: Ambrocio WOLFF, Chaparrita A Fast DO, Chaparrita A ELECTROCARDIOGRAM, COMPLETE (ECG) On: 06-Jun-2017 Intent (04760)By: Chaparrita Albrecht DO A Fast Comments: ekg showed normal sinus rhythym, normal axis, no acute st/t wave changes DO, Chaparrita A INFUSION, NORMAL SALINE SOLUTION , On: 10-May-2017 Intent 1000 CC (Special Coverage Comments: 2 liters total Instructions Apply. See [facility]: 2048) ([id number])By: Fast DO Chaparrita A Fast DO, Chaparrita A INFUSION, NORMAL SALINE SOLUTION , On: 10-May-2017 Intent 1000 CC (Special Coverage Comments: [id number]:IV left anticub dose:1000ml given by:eliazar HUMPHREY signedER, MAKE UP EDITOR Instructions Apply. See [facility]: 2048) ([id number])By: Fast DO Chaparrita A Fast DO, Chaparrita A Radiology - Chest- PA and LatBy: On: 05-May-2017 Intent Keri Singh MD Aerosol Treatment ([id number])By: On: 05-May-2017 Intent Keri Singh MD Radiology - ChestBy: Francisco MANN, On: 05-May-2017 Intent Keri Alonzo Comments: call wet read DRAIN/INJECT MAJOR JOINT OR BURSA On: 28-Feb-2017 Intent ()By: Keri Singh MD Comments: 1 cc Kenelog #[id number] Marcaine #[id number] Kenalog Injection, 10 mgm On: 28-Feb-2017 Intent ([id number])By: Keri Singh MD ELECTROCARDIOGRAM, COMPLETE (ECG) On: 10-Jan-2017 Intent ([id number])By: Case Albrecht DOa Olivia Fast Comments: ekg showed normal sinus rhythym, normal axis, no acute st/t wave changes DO, Chaparrita A Flu Vaccine (Quadrivalent) [id number]: On: 27-Dec-2016 Intent SHONDA Andrade DRAIN/INJECT MAJOR JOINT OR BURSA On: 20-Aug-2016 Intent ()By: Keri Singh MD DRAIN/INJECT MAJOR JOINT OR BURSA On: 13-Aug-2016 Intent ()By: SHONDA Andrade Comments: lot: [id number]:intra articular dose:2ml given by:Dr. Francisco marquesER, MAKE UP EDITOR injection #3 DOPPLER ULTRASOUND OF RIGHT CAROTID On: 10-Aug-2016 Intent ARTERY ([id number])By: Fast DO, Chaparrita A Comments: end october Fast DO, Chaparrita A DEXA SCAN AXIAL SKELETON (03082)By: On: 10-Aug-2016 Intent Fast DO, Chaparrita A Fast DO, Chaparrita A Comments: end october SCREENING DIGITAL TOMOSYNTHESIS OF On: 10-Aug-2016 Intent BREAST ([id number])By: Fast DO, Chaparrita A Comments: end october Fast DO, Chaparrita A DRAIN/INJECT MAJOR JOINT OR BURSA On: 06-Aug-2016 Intent ()By: Keri Singh MD DRAIN/INJECT INTERMED JOINT/BURSA On: 06-Aug-2016 Intent ()By: SHONDA Andrade Comments: [id number]:left knee dose:2mlgiven by:Dr. Francisco HUMPHREY signedER, MAKE UP EDITOR injection number 2 Venous Doppler - LeftBy: Fast DO, On: 03-Aug-2016 Intent Chaparrita A Fast DO, Chaparrita A Comments: This is set up for August 05 at 11am- spoke with Rina in cv. DRAIN/INJECT INTERMED JOINT/BURSA On: 30-Jul-2016 Intent ()By: Keri Singh MD Comments: lot:[id number]:intra articular left knee dose: 2ml given by: Dr. Francisco HUMPHREY signedER, MAKE UP EDITOR injection #1 Radiology - Knee - LeftBy: Fast DO, On: 26-May-2016 Intent Chaparrita A Fast DO, Chaparrita A Flu Vaccine (Quadrivalent) [id number]: On: 27-Jan-2016 Intent Fast DO, Chaparrita A Fast DO, Chaparrita A Comments: Lot #:[id number] date:10/01/16mount given:0.5mlRoute: IMSite given: left deltoidGiven by: CARMELINA Hook ADMINISTRATION OF INFLUENZA VIRUS On: 27-Jan-2016 Intent VACCINE (G0008)By: Fast DO, Chaparrita A Fast DO, Chaparrita A DOPPLER ULTRASOUND OF RIGHT CAROTID On: 22-Oct-2015 Intent ARTERY ([id number])By: Fast DO, Chaparrita A Fast DO, Chaparrita A MAMMOGRAM, SCREENING, BOTH BREAST On: 22-Oct-2015 Intent ([id number])By: Chaparrita Albrecht DO A Ambrocio WOLFF Chaparrita A Ultrasound - RenalBy: Ambrocio WOLFF, On: 14-Jul-2015 Intent Chaparrita A Ambrocio DO, Chaparrita A Radiology - Knee - Left - Weight On: 11-Mar-2015 Intent BearingBy: Ambrocio DO, Chaparrita A Fast DO, Chaparrita A Radiology - Knee - Right - Weight On: 11-Mar-2015 Intent BearingBy: Ambrocio WOLFF, Chaparrita A Fast DO, Chaparrita A Flu Vaccine (Quadrivalent) [id number]: On: 11-Feb-2015 Intent Ambrocio WOLFF, Chaparrita A Fast DO, Chaparrita A EKG ([id number])By: Chaparrita Albrecht DO On: 05-Nov-2014 Intent Ambrocio WOLFF Chaparrita A Comments: ekg showed normal sinus rhythym, normal axis, no acute st/t wave changes left axis DRAIN/INJECT SMALL JOINT OR BURSA On: 07-Oct-2014 Intent ([id number])By: Francisco MANN, Keri Alonzo MAMMOGRAM, SCREENING, BOTH BREAST On: 02-Aug-2014 Intent ([id number])By: Chaparrita Albrecht DO A Ambrocio Comments: september DO Chaparrita A Cartoid DopplerBy: Ambrocio WOLFF Chaparrita A On: 02-Aug-2014 Intent Ambrocio WOLFF Chaparrita A DEXA SCAN AXIAL SKELETON ([id number])By: On: 09-Apr-2014 Intent Ambrocio WOLFF Chaparrita A Ambrocio DO, Chaparrita A Prevnar 13 ([id number])By: Ambrocio WOLFF, On: 30-Jan-2014 Intent Chaparrita Albrecht DO, Chaparrita A Comments: Lot:[id number]:05/20Dose:0.5Route:imSite:l armGiven By:Jarred signed FLU VAC, SPLIT, >3 YEARS, INTRAMUSC On: 16-Jan-2014 Intent ([id number])By: Chaparrita Albrecht DO Comments: Lot #:[id number] date:12/2015Amount given:0.5mlRoute: IMSite given: left deltoidGiven by: CARMELINA Hook DO Chaparrita A ADMINISTRATION OF INFLUENZA VIRUS On: 16-Jan-2014 Intent VACCINE (G0008)By: Case Albrecht DOa A Ambrocio WOLFF, Chaparrita A EKG (07237)By: Fast DO, Chaparrita A On: 17-Oct-2013 Intent Fast DO, Chaparrita A Comments: ekg showed normal sinus rhythym, left axis, no acute st/t wave changes Radiology - Chest- PA and LatBy: On: 17-Sep-2013 Intent Fast DO, Chaparrita A Fast DO, Chaparrita A Aerosol Treatment ([id number])By: Ambrocio On: 17-Sep-2013 Intent DO, Chaparrita A Fast DO, Chaparrita A MRI - BrainBy: Fast DO, Chaparrita A On: 22-Jul-2013 Intent Fast DO, Chaparrita A Cartoid DopplerBy: Fast DO, Chaparrita A On: 20-Jul-2013 Intent Fast DO, Chaparrita A MAMMOGRAM, SCREENING, BOTH BREASTS On: 20-Jul-2013 Intent ([id number])By: Fast DO, Chaparrita A Fast DO, Chaparrita A Eprescribed prescriptions On: 20-Jul-2013 Intent (G8553)By: Fast DO, Chaparrita A Fast DO, Chaparrita A Eprescribed prescriptions On: 02-Feb-2013 Intent (G8553)By: Марина Concepcion FLU VAC, SPLIT, >3 YEARS, INTRAMUSC On: 03-Jan-2013 Intent ([id number])By: Марина Concepcion Comments: Lot #:[id number] date:mount given:0.5mlRoute: IMSite given: L dltdVIS and ABN signedGiven by: CARMELINA Hook ADMINISTRATION OF INFLUENZA VIRUS On: 03-Jan-2013 Intent VACCINE (G0008)By: Марина Concepcion CT - Abdomen & Pelvis (IV Contrast On: 17-Oct-2012 Intent Needed)By: Ambrocio WOLFF Chaparrita A Ambrocio Comments: patient will be calling to set up DO, Chaparrita A Eprescribed prescriptions On: 10-Oct-2012 Intent (G8553)By: Марина Concepcion Ear Irrigation (34876)By: [place], On: 13-Jun-2012 Intent Ivy Comments: Ear Irrigation performed on: right earAmount/color removed cerumen: light brown, small amount removedOUtcome:Pt toleratedUsed wax curettes Wax Currettes ([id number])By: Rome, On: 13-Jun-2012 Intent Ivy PNEUM VAC ADLT/IMUMNOSPR, SBC/INTRM On: 13-Jun-2012 Intent ([id number])By: Chaparrita Albrecht DO A Ambrocio Comments: Lot:[id number]:09/09/13Dose:0.5mLRoute:IMSite:L armGiven By:BHUMI marques DO, Chaparrita A EKG (48358)By: Ambrocio DO Chaparrita A On: 13-Jun-2012 Intent [...] MAMMOGRAM, SCREENING, BOTH BREASTS On: 28-Dec-2011 Intent ([id number])By: Ambrocio WOLFF Chaparrita A Fast DO, Chaparrita A DXA, BONE DENSITY, AXIAL SKELETON On: 28-Dec-2011 Intent (85663)By: Ambrocio WOLFF Chaparrita A Fast DO, Chaparrita [...] SPLIT, >3 YEARS, INTRAMUSC On: 28-Dec-2011 Intent ([id number])By: Марина Concepcion Comments: Lot #:[id number] date:mount given:0.5mlRoute: IMSite given: left deltoidGiven by: CARMELINA Hook ADMINISTRATION OF INFLUENZA VIRUS On: 28-Dec-2011 Intent VACCINE (G0008)By: Марина Concepcion Aerosol Treatment ([id number])By: Ciesa On: 30-Nov-[address] - Abdomen & PelvisBy: Ambrocio WOLFF, On: 21-Sep-2011 Intent Chaparrita A Fast DO, Chaparrita A Comments: with special cuts through the kidney- october EKG ([id number])By: Марина Concepcion On: 15-Jun-2011 Intent Comments: ekg [...] Comments: Call results to Dr. Albrecht @ [phone] as soon as resulted please. DO, Chaparrita A Eprescribed prescriptions On: 11-Jan-2011 Intent (G8553)By: Ambrocio DO, Chaparrita A Fast DO, Chaparrita A MAMMOGRAM, SCREENING, BOTH BREASTS On: 11-Jan-2011 Intent ([id number])By: Ambrocio DO, Chaparrita A Fast DO, Chaparrita A CT - Sinuses CompleteBy: Ambrocio WOLFF, On: 11-Jan-2011 Intent Chaparrita A Fast DO, Chaparrita A Cartoid DopplerBy: Ambrocio DO, Chaparrita A On: 11-Jan-2011 Intent Fast DO, Chaparrita A ADMINISTRATION OF INFLUENZA VIRUS On: 11-Jan-2011 Intent VACCINE (G0008)By: Марина Concepcion FLU VAC, SPLIT, >3 YEARS, INTRAMUSC On: 11-Jan-2011 Intent ([id number])By: Марина Concepcion Eprescribed prescriptions On: 12-Oct-2010 Intent (G8553)By: Fast DO, Chaparrita A Fast DO, Chaparrita A Renal DopplerBy: Fast DO, Chaparrita A On: 12-Oct-2010 Intent Fast DO, Chaparrita A Cartoid DopplerBy: Fast DO, Chaparrita A On: 12-Oct-2010 Intent Fast DO, Chaparrita A Comments: sept TDAP VACCINE >7 IM ([id number])By: On: 13-May-2010 Intent Helena Tineo LPN Comments: Lot #[id number]/25/13Site-left deltoidgiven by:TIFFANY EKG (85677)By: Марина Concepcion On: 13-May-2010 Intent Comments: ekg showed normal sinus rhythym, normal axis, no acute st/t wave changes Aerosol Treatment (96326)By: Ciesa On: 22-Dec-2009 Intent Johanna SANZ E Cartoid DopplerBy: Fast DO, Chaparrita A On: 01-Dec-2009 Intent Fast DO, Chaparrita A MAMMOGRAM, SCREENING, BOTH BREASTS On: 01-Dec-2009 Intent ([id number])By: Fast DO, Chaparrita A Fast DO, Chaparrita A DXA, BONE DENSITY, AXIAL SKELETON On: 01-Dec-2009 Intent ([id number])By: Fast DO, Chaparrita A Fast DO, Chaparrita A Ultrasound - SpleenBy: Fast DO, On: 17-Jun-2009 Intent Chaparrita A Fast DO, Chaparrita A EKG (77993)By: Марина Concepcion On: 10-Mar-2009 Intent Comments: ekg showed normal sinus rhythym, normal axis, no acute st/t wave changes FLU VAC, SPLIT, >3 YEARS, INTRAMUSC On: 09-Jan-2009 Intent ([id number])By: Stacy Jorge Comments: Lot #[id number]-1/2010Site-left deltoidDose0.5mlgiven by Marycarmen Jorge LPN ADMINISTRATION OF INFLUENZA VIRUS On: 09-Jan-2009 Intent VACCINE (G0008)By: Stacy Jorge MAMMOGRAM, SCREENING, BOTH BREASTS On: 04-Dec-2008 Intent ([id number])By: Fast DO, Chaparrita A Fast DO, Chaparrita A MAMMOGRAM, SCREENING, BOTH BREASTS On: 03-Sep-2008 Intent ([id number])By: Fast DO, Chaparrita A Fast DO, Chaparrita A FLU VAC, SPLIT, >3 YEARS, INTRAMUSC On: 16-Jan-2008 Intent ([id number])By: Janet Scherer RN Comments: Lot #: [id number] date: 09/10Amount given: 0.5 mlRoute: IMSite given: Left deltoidGiven by: Olivia Bell LPN ADMINISTRATION OF INFLUENZA VIRUS On: 16-Jan-2008 Intent VACCINE (G0008)By: Janet Scherer RN EKG (39491)By: Fast DO, Chaparrita A On: 29-Aug-2007 Intent Fast DO, Chaparrita A Comments: done km ADMINISTRATION OF PNEUMOCOCCAL On: 29-Aug-2007 Intent VACCINE (G0009)By: Fast DO, Chaparrita A Fast DO, Chaparrita A PNEUM VAC ADLT/IMUMNOSPR, SBC/INTRM On: 29-Aug-2007 Intent (09844)By: Fast DO, Chaparrita A Fast Comments: 0.5cc given im lt arm [id number] 02-13-08 DO, Chaparrita A DXA, BONE DENSITY, AXIAL SKELETON On: 29-Aug-2007 Intent (49656)By: Fast DO, Chaparrita A Fast DO, Chaparrita A MAMMOGRAM, SCREENING, BOTH BREASTS On: 29-Aug-2007 Intent (39381)By: Fast DO, Chaparrita A Fast DO, Chaparrita [...] new people and be involved in the latter day 0 bps are good and sugar looking [...] medical issues: she has been working with [employer] and trying to work on that- she got rid of respiratory infection but was sick for weeks and was on pred so her sugar up and chol up a bit- trying to add protein shakes drink more water- she is starting back at [facility]- diarrhea resolved- we did talk about [...] that she had episode where went to [facility] and she couldnt remember where she was- and happened one other time where she didnt recognize the roads- sister had alzheimer s- weight down because was sick- but coming back up- she hasnt done counseling with hospice has been thru before- she lonely- not necessarily unhappy- she doing self help she is singing with latter day- -rodriguez gars are all in low 100s-130- going to [employer] for a month next monthEncounter Diagnosis: [...] Eddie and bp is good she joined [employer] sugar up bit doi ng ice cream-the bone density reviewed little thinner she not exercising routienly until just recent at [employer] and sees kidney doc next week and [...] visual acuity (yearly). Note for Physical exam: [facility] Wellness Physical- Talk about trying Myrbetriq., [ADDITIONAL REASON] Follow up, [facility] Test Results - [facility] , [ADDITIONAL REASON] Itching - [...] Meningioma (Renamed from 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, 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, BRAIN/VIDEO SOFTWARE ENGINEER NEC (794.09)) [facility] Visit [...] Meningioma (Renamed from 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, 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, BRAIN/VIDEO SOFTWARE ENGINEER NEC (794.09)), Diabetes, Type II, controlled (250.00), [...] Meningioma (Renamed from 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, 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, BRAIN/VIDEO SOFTWARE ENGINEER NEC (794.09)), Colon Polyp [facility] [...] Meningioma (Renamed from 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, 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, BRAIN/VIDEO SOFTWARE ENGINEER NEC (794.09)), OCCLUSION AND STENOSIS OF CAROTID [...] Meningioma (Renamed from 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, 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, BRAIN/VIDEO SOFTWARE ENGINEER NEC (794.09)), Chronic glomerulonephritis with lesion of [...] Meningioma (Renamed from 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, 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, BRAIN/VIDEO SOFTWARE ENGINEER NEC (794.09)), Other and unspecified hyperlipidemia (272.4), [...] Meningioma (Renamed from 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, 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, BRAIN/VIDEO SOFTWARE ENGINEER NEC (794.09)) [facility] Visit [...] Meningioma (Renamed from 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, 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, BRAIN/VIDEO SOFTWARE ENGINEER NEC (794.09)), Gerd (530.81), Hyperlipidemia, Unspecified (272.4), [...] Meningioma (Renamed from 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, 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, BRAIN/VIDEO SOFTWARE ENGINEER NEC (794.09)), Hypertension,benign(401.1), OCCLUSION AND STENOSIS OF [...] Meningioma (Renamed from 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, 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, BRAIN/VIDEO SOFTWARE ENGINEER NEC (794.09)), Diabetes, Type II, controlled (250.00), [...] Meningioma (Renamed from 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, 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, BRAIN/VIDEO SOFTWARE ENGINEER NEC (794.09)), Hypertension,benign(401.1), Osteopenia (733.90), Depression (311.), [...] weight down 23 pounds- and trying joined [employer]- she feels well - she increased celexa [...] Meningioma (Renamed from 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, 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, BRAIN/VIDEO SOFTWARE ENGINEER NEC (794.09)), Chronic glomerulonephritis with lesion of [...] Meningioma (Renamed from 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, 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, BRAIN/VIDEO SOFTWARE ENGINEER NEC (794.09)) End: 26-Jan-2011 16:53 [facility] Office Visit On: 19-Jan-2011 14:30 Encounter Diagnosis: brain tumor End: 21-Sep-2011 8:09 [facility] Phone Encounter On: 19-Jan-2011 13:41 Encounter Diagnosis: 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, 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, BRAIN/VIDEO SOFTWARE ENGINEER NEC (794.09) End: 19-Jan-2011 13:44 [facility] [...] pressure-- [facility] been [facility]: Diabetes, Type II, controlled (250.00), [...] (V04.81), Degenerative Disc Disease - Lumbar (722.52), [facility] Office Visit On: 06-Dec-2007 [...] Disease - Lumbar (722.52), Osteopenia (733.90), Hypertension,benign(401.1), [facility] Internal Medicine Historical Summary On: [...]
--- OUTSIDE RECORDS SUMMARY | 2018-06-25 21:51 | XMS RPT_ITS | Continuity of Care Document ---
:1940 Author Organization [facility] Address [address] [place] [address] Phone Care Team Providers Name Role Phone Chaparrita Albrecht DO Unavailable Dr. Marcus Caldera Unavailable Keri Singh MD Unavailable Inna Reynoso Unavailable Unavailable Марина Concepcion [...] Knee pain, unspecified laterality (719.46) Comments: Valorie:lot: [id number]: 09/20site/route: L knee Status: Active Leg pain, [...] spray daily for 0 days Quantity: 1 {[place]} Refills: 0 Ordered:04-May-2016 SHONDA Andrade Start : [...] for 0 days Refills: 0 Ordered:04-Dec-2008 Ambrocio WOLFFCaseoliiva ENGLEkaren DO Chaparrita A Start : 04-Dec-2008 [...] Quantity: 90 {Tablet} Refills: 3 Ordered:03-Jan-2013 Chaparrita ENGELkaren Chaparrita A Start : 03-Jan-2013 End : [...] and dispense 8 ounes TOTAL mixed solutionCal [id number] if questions SPECTAZOLE, 1% (External Cream) 1 [...] End : 11-Feb-2015 Discontinued Comments:th[age], called to [facility] 08[facility]30[facility] Allergies and Adverse Reactions Name Dates [...] Meningioma (Renamed from 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, 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, BRAIN/FORENSIC SCIENCE EXAMINER NEC) (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 2016 right Cholecystectomy Completed lumbar omqmci==5453 Completed Tonsillectomy Completed Date Value Details 19-Dec-2017 Echocardiogram Complete Result: Comments: See Note; NOTES: [facility] Cardiovascular Services [address] [place] [address] Echo Complete 12/19/17 0800 MR#: [id number] Acct: [id number] Name: CLARENCE ALBERT ep #: [id number] : 1940 77 From: Chuckie Cormier MD Attending Dr: Chaparrita Albrecht DO Status: REG CLI Ordering Dr: Chaparrita Albrecht DO Date: 12/19/17 Location: [facility] Sex: F C Admitted: Reason [...] Dictated: 12/19/17 0800 Date Transcribed: 12/19/17 1022 Merchandise Executive: Signed 07-Dec-2017 Carotid Duplex Ultrasound Result: Comments: See Note; NOTES: [facility] Cardiovascular Services [address] [place] [address] Carotid Duplex Ultrasound 12/06/17 0901 MR#: [id number] Acct: [id number] Name: CLARENCE WHITTINGTON Rep #: [id number] : 1940 77 From: Anurag Loya MD [...] the left vertebral artery. Procedure Carotid Duplex 45201. Exam performed in department. Interpretation Summary Mild (<50%) stenosis right extracranial internal carotid. Mild (<50%) stenosis left extracranial internal carotid. Flow within the vertebral arteries is antegrade bilaterally. __ __ Ordering Physician: Chaparrita Albrecht Performed By: Margot Benton RVT and Student 12/07/17 0809 Date Anurag Loya MD CC: Chaparrita Albrecht DO Date Dictated: 12/06/17900 Date Transcribed: 12/07/17808 Merchandise Executive: Signed 06-Dec-2017 SCREENING MAMM (CAD), BILAT Result: Comments: See Note; NOTES: [facility] Imaging Services [address] [place] [address] SCREENING MAMM (CAD), BILAT MR#: [id number] Acct: [id number] Name: CLARENCE ALBERT Rep #: [id number] : 1940 F 77 From: Misael Hebert MD PCP: Chaparrita Albrecht DO Status: REG CLI Study: SCREENING MAMM (CAD), BILAT Date of Exam: 12/06/17 Exam# [id number] Ordering Dr: Chaparrita Albrecht DO MAMM OGRAPHY [...] delay biopsy of a clinically suspicious abnormality. [id number] Electronically Signed: Misael Hebert MD at 15:31 EDT Tel [phone], Se rvice support , CC: Chaparrita Albrecht DO Merchandise Executive: Signed 10-Jun-2017 Brain W/WO Contrast Result: Comments: See Note; NOTES: [facility] Imaging Services [address] [place] [address] Brain W/WO Contrast MR#: [id number] Acct: [id number] Name: CLARENCE ALBERT Rep #: [id number] : 1940 F 77 From: Laya Montilla MD PCP: Chaparrita Albrecht DO Status: REG CLI Study: Brain W/WO Contrast Date of Exam: 06/10/17 Exam# [id number] Ordering Dr: Chaparrita Albrecht DO STUDY: MRI [...] Service support , CC: Chaparrita Albrecht DO Merchandise Executive: Signed 05-May-2017 Chest PA and Lateral Result: Comments: See Note; NOTES: [facility] Imaging Services [address] [place] [address] Chest PA and Lateral MR#: [id number] Acct: [id number] Name: CLARENCE ALBERT Rep #: [id number] : 1940 F 77 From: Edwar Patino MD PCP: Chaparrita Albrecht DO Status: REG CLI Study: Chest PA and Lateral Date of Exam: 05/05/17 Exam# [id number] Ordering Dr: Keri Singh MD STUDY: X-RAY [...] CC: Keri Singh MD; Chaparrita Albrecht DO Merchandise Executive: Signed 02-Nov-2016 Dexa Bone Density Study (HP) Result: Comments: See Note; NOTES: [facility] Imaging Services [address] [place] [address] Verdana 4d Dexa Bone Density Study (HP) MR#: [id number] Acct: [id number] Name: LYNNE ALBERT Rep #: [id number] : 1940 F 76 From: Misael Hebert MD PCP: Chaparrita Albrecht DO Status: REG CLI Study: Dexa Bone Density Study (HP) Date of Exam: 11/02/16 Exam# [id number] Ordering Dr: Laura DO STUDY: DUAL ENERGY [...] Misael Hebert MD at 11:02 EDT Tel [phone], Service support , CC: Chaparrita Albrecht DO Merchandise Executive: Signed 02-Nov-2016 SCREENING MAMM (CAD), BILAT Result: Comments: See Note; NOTES: [facility] Imaging Services [address] [place] [address] Verdana 4d SCREENING MAMM (CAD), BILAT MR#: [id number] Acct: [id number] Name: CLARENCE ALBERT Rep #: [id number] : 1940 F 76 From: Misael Hebert MD PCP: Chaparrita Albrecht DO Status: REG CLI Study: SCREENING MAMM (CAD), BILAT Date of Exam: 11/02/16 Exam# [id number] Ordering Dr: Case Albrecht DO MAMMOGRAPHY - [...] delay biopsy of a clinically suspicious abnormality. [id number] Electronically Signed: Misael Hebert MD at 12:44 EDT Tel [phone], Service support , CC: Chaparrita Albrecht DO Merchandise Executive: Signed 05-Aug-2016 Venous Duplex Lower Extremity Result: Comments: See Note; NOTES: [facility] Cardiovascular Services [address] [place] [address] Venous Duplex US, Unilateral 08/05/16 1053 MR#: [id number] Acct: [id number] Name: CLARECNE WEI Rep #: [id number] : 1940 76 From: Elvin Natarajan MD [...] By: Margot Benton RVT 08/05/16 1127 Date lEvin Natarajan MD CC: Chaparrita Albrecht DO Date Dictated: 08/05/16 1053 Date Transcribed: 08/05/16 1127 Merchandise Executive: Signed 27-May-2016 Knee 4 or More Views Result: Comments: See Note; NOTES: [facility] Imaging Services [address] [place] [address] Verdana 4d Knee 4 or More Views MR#: [id number] Acct: [id number] Name: CLARENCE ALBERT Rep #: [id number] : 1940 F 76 From: Misale Hebert MD PCP: Chaparrita Albrecht DO Status: REG CLI Study: Knee 4 or More Views Date of Exam: 05/27/16 Exam# [id number] Ordering Dr: Kylah Linda DO UDY: X-RAY [...] MD at 10:41 EST , Service support [phone], CC: Chaparrita Albrecht DO; Kylah Linda DO Merchandise Executive: Signed 13-May-2016 Sinus/Facial Bone Result: Comments: See Note; NOTES: [facility] Imaging Services [address] [place] [address] Verdana 4d Sinus/Facial Bone MR#: [id number] Acct: [id number] Name: CLARENCE ALBERT Rep #: [id number] : 1940 F 76 From: Godwin Winter MD PCP: Chaparrita Albrecht DO Status: REG CLI Study: Sinus/Facial Bone Date of Exam: 05/13/16 Exam# [id number] Ordering Dr: Alejandro Silverman MD STUDY: CT [...] MD at 7:35 EST , Service support [phone], CC: Chaparrita Albrecht DO; Alejandro Silverman MD Merchandise Executive: Signed 21-Apr-2016 Emergency Department Summary Result: Comments: See Note; NOTES: [facility] Medical Records Department [address] [place] [address] Emergency Department Summary MR#: [id number] Acct: [id number] Name: CLARENCE ALBERT Rep #: [id number] : 1940 76 From: Carissa Murphy MD [...] epistaxis. CARISSA MURPHY MD T: NTS JOB: [id number] 04/21/16 0806 <Electronically signed by Carissa Murphy MD> Date Carissa donovan MD Cosigner Signature (If Indicated): Date CC: Chaparrita Albrecht DO Date Dictated: 04/20/161711 Date Transcribed: 04/20/161711 Merchandise Executive: Signed 20-Apr-2016 Discharge Instruction Result: Comments: See Note; NOTES: [facility] Medical Records Department [address] [place] [address] Discharge Instruction 04/20/16 1303 MR#: [id number] Acct: [id number] Name: CLARENCE ALBERT Rep #: [id number] : 1940 76 From: Carissa Murphy MD [...] your Primary Care Provider. Call [facility] ([phone]) or report to the closest Emergency Room. Call 911 if necessary. 04/20/16 8027 <Electronically signed by Carissa Murphy MD> Date Carissa Murphy MD Cosigner Signature (If I ndicated): Date CC: Chaparrita Albrecht DO 02-Nov-2015 Carotid Duplex Ultrasound Result: Comments: See Note; NOTES: [facility] Cardiovascular Services [address] [place] [address] Carotid Duplex Ultrasound 10/30/15 1100 MR#: [id number] Acct: [id number] Name: CLARENCE ALBERT Rep #: [id number] : 1940 75 From: Elvin Natarajan MD Attending Dr: Chaparrita Albrecht DO Status: REG CLI Ordering Dr: Chaparrita Albrecth DO Date: 10/30/15 Location: [facility] Sex: F C Adm itted: [...] the left vertebral artery. Procedure Carotid Duplex 79901. The exam was diagnostic. Exam performed in [...] Dictated: 10/30/15 1100 Date Transcribed: 11/02/15 1143 Merchandise Executive: Signed 30-Oct-2015 Bilat Scrn Digital AND CAD Result: Comments: See Note; NOTES: [facility] Imaging Services [address] [place] [address] Verdana 4d Bilat Scrn Digital AND CAD MR#: [id number] Acct: [id number] Name: CLARENCE ALBERT Rep #: [id number] : 1940 F 75 From: Andres Brady MD PCP: Chaparrita Albrecht DO Status: REG CLI Study: Bilat Scrn Digital AND CAD Date of Exam: 10/30/15 Exam# [id number] Ordering Dr: Chaparrita Albrecht DO MAMMOGRAPHY - [...] biop sy of a clinically suspicious abnormality. [id number] Electronically Signed: Andres Brady MD at 17:48 EDT Tel , Service support [phone], CC: Chaparrita Albrecht DO Merchandise Executive: Signed 30-Oct-2015 Bilat Scrn Digital AND CAD Result: Comments: See Note; NOTES: [facility] Imaging Services [address] [place] [address] Verdana 4d Bilat Scrn Digital AND CAD MR#: [id number] Acct: [id number] Name: CLARENCE ALBERT Rep #: [id number] : 1940 F 75 From: Andres Brady MD PCP: Chaparrita Albrecht DO Status: REG CLI Study: Bilat Scrn Digital AND CAD Date of Exam: 10/30/15 Exam# [id number] Ordering Dr: Chaparrita Albrecht DO MAMMOGRAPHY - [...] abnormalities are identified. CC: Chaparrita Albrecht DO Merchandise Executive: Signed 22-Oct-2015 ELECTROCARDIOGRAM, COMPLETE (ECG) (70679) Comments: ekg showed normal sinus rhythym, normal axis, no acute st/t wave changes no change Result: [MEASUREMENTS ANALYSIS] Date of Test: 10/22/2015 14:41:29; Heart Rate: 71; CT Interval: 140; QRS: 94; QT Interval: 384; Corrected QT Interval (QTc): 403; P Wave Juliette: 58; QRS Wave Juliette: -3; T Wave Juliette: 56; Blood Pressure: 128/76 [ECG DIAGNOSTIC STATEMENTS] Date of Test: 10/22/2015 14:41:29; Summary: Sinus Rhythm Low voltage -possible pulmonary disease. ABNORMAL 22-Jul-2015 Kidney and Bladder Result: Comments: See Note; NOTES: [facility] Imaging Services [address] [place] [address] Verdana 4d Kidney and Bladder MR#: [id number] Acct: [id number] Name: Yaniv ALBERT Rep #: [id number] : 1940 F 75 From: Nir Sanchez MD PCP: Chaparrita Albrecht DO Status: REG CLI Study: Kidney and Bladder Date of Exam: 07/22/15 Exam# [id number] Ordering Dr: Chaparrita Albrecht DO STUDY: RENAL [...] Service support , CC: Chaparrita Albrecht DO Merchandise Executive: Signed 11-Mar-2015 Knee 4 or More Views Result: Comments: See Note; NOTES: [facility] Imaging Services [address] [place] [address] Verdana 4d Knee 4 or More Views MR#: [id number] Acct: [id number] Name: CLARENCE ALBERT Rep #: [id number] : 1940 F 74 From: Trent Cameron DO PCP: Chaparrita Albrecht DO Status: REG CLI Study: Knee 4 or More Views Date of Exam: 03/11/15 Exam# [id number] Ordering Dr: Case Albrecht DO STUDY: X-RAY [...] at 7:45 EST Tel , Service support [phone], RAD/Knee 4 or More Views IMPRESSION: Degener ative changes within the knee. No acute fracture. Small suprapatellar effusion. Electronically Signed: Trent Cameron DO at 7:45 EST Tel , Service support [phone], CC: Chaparrita Albrecht DO Merchandise Executive: Signed 11-Mar-2015 Knee 4 or More Views Result: Comments: See Note; NOTES: [facility] Imaging Services [address] [place] [address] Verdana 4d Knee 4 or More Views MR#: [id number] Acct: [id number] Name: CLARENCE ALBERT Rep #: [id number] : 1940 F 74 From: Trent Cameron DO PCP: Chaparrita Albrecht DO Status: REG CLI Study: Knee 4 or More Views Date of Exam: 03/11/15 Exam# [id number] Ordering Dr: Case Albrecht DO STUDY: X-RAY [...] at 7:46 EST Tel , Service support [phone], RAD/Knee 4 or More Views IMPRESSION: Mild degenerative changes. No acute bony abnormality. Electronically Signed: Trent Cameron DO at 7:46 EST Tel , Service support [phone], CC: Chaparrita Albrecht DO Merchandise Executive: Signed 18-Oct-2014 Carotid Duplex Ultrasound Result: Comments: See Note; NOTES: [facility] Cardiovascular Services [address] [place] [address] Carotid Duplex Ultrasound 10/18/14 1331 MR#: [id number] Acct: [id number] Na me: CLARENCE ALBERT Rep #: [id number] : 1940 74 From: Elvin Natarajan MD [...] the left vertebral artery. Procedure Carotid Duplex 46613. The exam was diagnostic. Exam performed in [...] Dictated: 10/18/14 1331 Date Transcribed: 10/18/14 1616 Merchandise Executive: Signed 18-Oct-2014 Bilat Scrn Digital AND CAD Result: Comments: See Note; NOTES: [facility] Imaging Services [address] [facility] [place] [address] Breast Imaging Report MR#: [id number] Acct: [id number] Name: CLARENCE ALBERT Rep #: [id number] : 1940 F 74 From: Misael Hebert MD PCP: Chaparrita Albrecht DO Status: REG CLI Study: Saad Jaffe Digital AND CAD Date of Exam: 10/18/14 Exam# [id number] Ordering Dr: Chaparrita Albrecht DO MAMMOGRAPHY - [...] Misael redmond MD at 13:44 EDT Tel [phone], Service support [phone], CC: Chaparrita Albrecht DO Merchandise Executive: Signed 09-Jul-2014 Dexa Bone Density Study (HP) Result: Comments: See Note; NOTES: [facility] Imaging Services [address] [place] [address] Bone Density Report MR#: [id number] Acct: [id number] Name: CLARENCE ALBERT Rep #: [id number] : 1940 F 74 From: Misael Hebert MD PCP: Chaparrita Albrecht DO Status: [facility] CLI Study: Dexa Bone Density Study (HP) Date of Exam: 07/09/14 Exam# [id number] Ordering Dr: Chaparrita Albrecht DO STUDY: DUAL [...] Angel Hebert MD at 14:55 EDT Tel [phone], Service support [phone], CC: Chaparrita Albrecht DO Merchandise Executive: Signed 17-Sep-2013 Chest PA and Lateral Result: Comments: See Note; NOTES: [facility] Imaging Services [address] [facility] [place] [address] Radiology Report MR#: [id number] Acct: [id number] Name: CLARENCE ALBERT Rep #: [id number] : 1940 F 73 From: David Bennett MD PCP: Chaparrita Alrbecht DO Status: REG CLI Study: Chest PA and Lateral Date of Exam: 09/17/13 Exam# [id number] Ordering Dr: Chaparrita Albrecht DO STUDY: X-RAY [...] MD at 20:44 EDT , Service support [phone], RAD/Chest PA and Lateral IMPRESSION: No focal infiltrate or edema. Electronic ally Signed: David Bennett MD at 20:44 EDT , Service support [phone], CC: Chaparrita Albrecht DO Merchandise Executive: Signed 17-Sep-2013 Spirometry (16424) Result: 29-Aug-2013 Carotid Duplex Ultrasound Result: Comments: See Note; NOTES: [facility] Cardiovascular Services [address] [place] [address] Carotid Duplex Ultrasound 08/24/13 0939 MR#: [id number] Acct: [id number] Chalo e: CLARENCE ALBERT Rep #: [id number] : 1940 73 From: Anurag Loya MD [...] in the left bulb. Procedure Carotid Duplex 92720. Exam perfor med in department. Interpretation Summary Mild (<50%) stenosis right extracranial internal carotid. Mild (<50%) stenosis left extracranial internal carotid. Flow within the vertebra l arteries is antegrade bilaterally. Ordering Physician: Chaparrita Albrecht Performed By: Kendal Benton RVT : Chaparrita Albrecht DO Date Dictated: 08/24/13 0939 Date Transcribed: 08/29/13 1118 Merchandise Executive: Signed Immunization Name Dates Details Influenza (3 years and up) on: 16-Jan-2008 Comments: Lot #: [id number] date: 09/10Amount given: 0.5 mlRoute: IMSite given: Left deltoidGiven by: Olivia Bell LPN Influenza (3 years and up) on: 09-Jan-2009 Comments: Lot #[id number]-left deltoidDose0.5mlgiven by Marycarmen Joreg LPN Pneumococcal (2 years and up) on: 29-Aug-2007 Comments: 0.5cc given im lt arm [id number] exp 02-13-08 Family History Unknown Family Member [...] kg/m2 Body Surface Area Calculated 1.76 m2 31-Fir-437265:39 Temperature 97.9 f Comments: Method: Temporal Pulse [...] 0.00 cm Results Date Description Value Details :24 HgA1C , Office (84802) HgA1C , Office 6.5 % (Normal) Range: 4.6 - 7.1 :14 LIPID PANEL (96277) Comments: PATIENT WAS FASTINGPERFORMED BY: [facility]CoRobert [facility] University HospitalSbffqa7929 [facility] [id number] LDL/HDL Ratio 1.1 {ratio} (Normal) Range: 0.0-3.2 [...] (Normal) Range: 100-199 :14 Vitamin D Hydroxy (15882) Comments: PATIENT WAS FASTINGPERFORMED BY: [facility]6370 [facility] [id number] Vitamin D, 25-Hydroxy 37.8 ng/mL (Normal) Range: 30.0-100.0 Comments: Vitamin D deficiency has been defined by the [place] ofMedicine and an Endocrine Society practice guideline as alevel of serum 25-OH vitamin D less than 20 ng/mL (1,2).The Endocrine Society went on to further define vitamin Dinsufficiency as a level between 21 and 29 ng/mL (2).1. IOM ([place] of Medicine). 2010. Dietary reference intakes for calcium and D. [place]: The National Academies Press.2. Mira MF, Rosette NC, Tommy SWAIN, et al. Evaluation, treatment, and prevention of vitamin D deficiency: an Endocrine Society clinical practice guideline. JCEM. 2010; 96(7):1911-30. :14 CBC with auto diff (00598) Comments: PATIENT WAS FASTINGPERFORMED BY: [facility]CoRobert [facility] HospitalMcxnxz2544 [facility] [id number] Immature Grans (Abs) 0.0 {x10E3/uL} (Normal) Range: [...] PANEL, COMPREHENSIVE Comments: PATIENT WAS FASTINGPERFORMED BY: [facility]CoRobert [facility] HospitalJykkgi7226 [facility] [id number] (07528) ALT (SGPT) 10 [iU]/L (Normal) Range: 0-32 [...] CREATININE RATIO Comments: PATIENT WAS FASTINGPERFORMED BY: Social CollectiveRobert [facility] Johnson University HospitalSocjva8124 [facility] [id number] (06659) AND (87912) Alb/Creat Ratio 4213.3 {mg/g_creat} (Abnormal) Range: 0.0-30.0 Albumin, Urine 3206.3 ug/mL (Normal) Comments: Results confirmed ondilution. Creatinine, Urine 76.1 mg/dL (Normal) :40 CBC & PLATELETS (AUTO) (20248) Comments: please fax to Dr. Austin- [phone]; PATIENT WAS FASTINGPERFORMED BY: Social CollectiveRobert [facility] HospitalDafupk4072 [facility] [id number] Platelets 148 {x10E3/uL} (Abnormal) Range: 150-379 RDW [...] PANEL Comments: please fax to Dr. Austin- [phone]; PATIENT WAS FASTINGPERFORMED BY: Social CollectiveRobert [facility] HospitalYhmuuj8538 [facility] [id number] Information: [id number] FX DR. SANTANA (33826) Albumin 3.1 g/dL (Abnormal) Range: 3.5-4.8 Phosphorus [...] 8-27 Glucose 133 mg/dL (Abnormal) Range: 65-99 09-Scm-95979:40 MAGNESIUM (70042) Comments: please fax to Dr. Austin- [phone]; PATIENT WAS FASTINGPERFORMED BY: [employer] [facility] Bxxank0339 [facility] [id number] Magnesium 1.9 mg/dL (Normal) Range: 1.6-2.3 86-Hwe-49524:40 CALCIFEDIOL (10955) Comments: please fax to Dr. Austin- [phone]; PATIENT WAS FASTINGPERFORMED BY: [employer] [facility] Qtwiur5007 [facility] [id number] Vitamin D, 25-Hydroxy 29.4 ng/mL (Abnormal) Range: 30.0-100.0 Comments: Vitamin D deficiency has been defined by the [place] ofMedicine and an Endocrine Society practice guideline as alevel of serum 25-OH vitamin D less than 20 ng/mL (1,2).The Endocrine Society went on to further define vitamin Dinsufficiency as a level between 21 and 29 ng/mL (2).1. IOM ([place] of Medicine). 2010. Dietary reference intakes for calcium and D. [place]: The National Academies Press.2. Mira MF, Rosette [place], Tommy SWAIN, et al. Evaluation, treatment, and prevention of vitamin D deficiency: an Endocrine Society clinical practice guideline. JCEM. 2010; 96(7):1911-30. :40 PARATHORMONE (37994) Comments: please fax to Dr. Austin- [phone]; PATIENT WAS FASTINGPERFORMED BY: EVE [facility] Ypfayl9487 Case [facility] HospitalMalikclaribel [place] [id number] PTH, Intact 22 pg/mL (Normal) Range: 15-65 :30 COLON BIOPSY (CHOOSE See Note (Normal) Comments: [facility] [address] [place], [address] SITE) Comments: Patient: CLARENCE ALBERT : 1940 (77/F) Acct Num: [id number] Phys: Marcus Caldera Unit Num: [id number] Loc: [facility] Specimen: [id number] Received: 09/16/171528 Spec Type: C OLON BX [...] one cassette. / MARCY:dustin 09/19/17 TC:1 CPT: 19193 x2 HEADER OPERATION: Colonoscopy PRE-OP DIAGNOSIS: History [...] PANEL, COMPREHENSIVE Comments: PATIENT NOT FASTINGPERFORMED BY: LabCoRobert [facility] Johnson University HospitalRhkywq2965 [facility] [id number] (77597) ALT (SGPT) 14 [iU]/L (Normal) Range: 0-32 [...] (Abnormal) Range: 65-99 :07 HgA1C , Office (74207) HgA1C , Office 7.2 % (Abnormal) Range: 4.6 - 7.1 :37 Clostridium difficile Toxin Comments: PATIENT NOT FASTINGPERFORMED BY: LabCoRobert [facility] Johnson University HospitalEplbcj8200 [facility] [id number] A+B, EIA (68256) C difficile Toxins A+B, EIA Negative (Normal) :37 LEUKOCYTE COUNT, FECAL (22233) Comments: PATIENT NOT FASTINGPERFORMED BY: [facility] Ilgudh2334 [facility] [id number] Result 1 NWBC (Normal) Comments: No white blood cells seen. White Blood Cells (WBC), Final report (Normal) Stool :37 OVA & PARASITE DIR SMEAR Comments: PATIENT NOT FASTINGPERFORMED BY: [facility] Uctbca5388 [facility] [id number] (38699) Result 1 NOCP (Normal) Comments: No ova, cysts, or parasites seen. Ova + Parasite Exam Final report (Normal) Comments: These results were obtained using wet preparation(s) and trichromestained smear. This test does not include testing for Cryptosporidiumparvum, Cyclospora, or Microsporidia. :37 SETH CULTURE-STOOL (59386) Comments: PATIENT NOT FASTINGPERFORMED BY: [facility] Nhlxtr2797 [facility] [id number] Information: SRC:ST SRC:ST E coli Shiga Toxin EIA Negative (Normal) Result 1 NCI (Normal) Comments: No Campylobacter species isolated. Campylobacter Culture Final report (Normal) Result 1 NSS (Normal) Comments: No Salmonella or Shigella recovered. Salmonella/Shigella Screen Final report (Normal) :06 Renal function Panel Comments: fax copy to Dr. Santana [phone]; A courtesy copy of this report has been sent [phone].PATIENT NOT FASTINGPERFORMED BY: [facility] Rwmipz2093 [facility] [id number] Information: NURSE DRAW (95532) Albumin 3.5 g/dL (Normal) Range: 3.5-4.8 Phosphorus [...] copy of this report has been sent [phone].PATIENT NOT FASTINGPERFORMED BY: [employer] [place] [id number] :02 Range: 15-65 Vitamin D, 25-Hydroxy 34.7 ng/mL (Normal) Comments: A courtesy copy of this report has been sent [phone].PATIENT NOT FASTINGPERFORMED BY: [employer]umBuldum.com70 [facility] [id number] :02 Range: 30.0-100.0 Comments: Vitamin D deficiency has been defined by the [place] ofUniversity Hospitals Tripoint Medical Centercine and an Endocrine Society practice guideline as alevel of serum 25-OH vitamin D less than 20 ng/mL (1,2).The Endocrine Society went on to further define vitamin Dinsufficiency as a level between 21 and 29 ng/mL (2).1. IOM ([place] of Medicine). 2010. Dietary reference intakes for calcium and D. [place]: The National Academies Press.2. Mira MF, Rosette LOPEZ, Tommy SWAIN, et al. Evaluation, treatment, and prevention of vitamin D deficiency: an Endocrine Society clinical practice guideline. JCEM. 2010; 96(7):1911-30. 6-Pmv-468647:02 MICROALBUMIN: CREATININE RATIO Comments: send results to Dr. Santana fax: [phone]; A courtesy copy of this report has been sent [phone].PATIENT NOT FASTINGPERFORMED BY: [facility]At[facility] [id number] (68739) AND (31369) Alb/Creat Ratio 4191.2 {mg/g_creat} (Abnormal) Range: 0.0-30.0 Albumin, Urine 2380.6 ug/mL (Normal) Comments: Results confirmed ondilution. Creatinine, Urine 56.8 mg/dL (Normal) 9-Xur-497214:02 CBC, PLATELETS & MANUAL Comments: send results to Dr. Santana fax: [phone]; A courtesy copy of this report has been sent [phone].PATIENT NOT FASTINGPERFORMED BY: LabCoRobert Wood Johnson University HospitalPtbapd9528 [facility] [id number] Information: VIT D25, PTH DIFF (08675) Immature Grans (Abs) 0.0 {x10E3/uL} (Normal) Range: [...] 3.77-5.28 WBC 5.4 {x10E3/uL} (Normal) Range: 3.4-10.8 0-Gzv-667648:02 MAGNESIUM (46667) Comments: send results to Dr. Santana fax: [phone]; A courtesy copy of this report has been sent [phone].PATIENT NOT FASTINGPERFORMED BY: [facility]aleAt[facility] [id number] Magnesium, Serum 1.8 mg/dL (Normal) Range: 1.6-2.3 5-Zzp-310191:02 RENAL FUNCTION PANEL (88331) Comments: send results to Dr. Santana fax: [phone]; A courtesy copy of this report has been sent [phone].PATIENT NOT FASTINGPERFORMED BY: [facility]At[facility] [id number] Albumin, Serum 3.7 g/dL (Normal) Range: 3.5-4.8 [...] Glucose, Serum 119 mg/dL (Abnormal) Range: 65-99 5-Aym-779115:07 LIPID PANEL (77494) Comments: PATIENT WAS FASTINGPERFORMED BY: ISVS6370 [address] [facility] [id number] LDL/HDL Ratio 1.4 {ratio} (Normal) Range: 0.0-3.2 Comments: LDL/HDL Ratio Men Women 1/2 Avg.Risk 1.0 1.5 Av g.Risk 3.6 3.2 2X Avg.Risk 6.2 5.0 3X Avg.Risk 8.0 6.1 LDL Cholesterol Calc 102 mg/dL (Abnormal) Range: 0-99 VLDL Cholesterol Cesar 17 mg/dL (Normal) Range: 5-40 HDL Cholesterol 75 mg/dL (Normal) Triglycerides 84 mg/dL (Normal) Range: 0-149 Cholesterol, Total 194 mg/dL (Normal) Range: 100-199 8-Brw-463220:07 CBC W/AUTO DIFF WBC (75803) Comments: PATIENT WAS FASTINGPERFORMED BY: [facility] Wwvzye4135 [facility] [id number] Immature Grans (Abs) 0.0 {x10E3/uL} (Normal) Range: [...] 3.77-5.28 WBC 4.8 {x10E3/uL} (Normal) Range: 3.4-10.8 0-Pzf-680395:07 METABOLIC PANEL, COMPREHENSIVE Comments: PATIENT WAS FASTINGPERFORMED BY: [facility] Iwtgds4169 [facility] [id number] (35577) ALT (SGPT) 14 [iU]/L (Normal) Range: 0-32 [...] 8-27 Glucose 158 mg/dL (Abnormal) Range: 65-99 1-Ghr-116585:07 VITAMIN B-12 (CYANOCOBALAMIN) Comments: PATIENT WAS FASTINGPERFORMED BY: [facility] Syatqe5454 [facility] [id number] (33358) Vitamin B12 771 pg/mL (Normal) Range: 232-1245 13-May-20170:00 CDIFF (Molecular) Comments: [facility] Ufjhxbgtbz55[address] [place], [address] CDIFF See Note (Normal) Comments: Cdiff-MolecularNormal Reference Range = Negative C. Diff DNA Negative- No toxigenic C. Diff DNA DetectedNAAT METHOD Testing was performed using nucleic acid amplification :32 Rapid Flu (47195 x 2) Influenza A Ag Negative (Normal) :35 CBC with auto diff (62438) Comments: PATIENT WAS FASTINGPERFORMED BY: [facility] Dykzdv7081 [facility] [id number] Immature Grans (Abs) 0.0 {x10E3/uL} (Normal) Range: [...] PANEL, COMPREHENSIVE Comments: PATIENT WAS FASTINGPERFORMED BY: LabCoRobert Wood Johnson University HospitalJwqysy6148 [facility] [id number] (67088) ALT (SGPT) 16 [iU]/L (Normal) Range: 0-32 [...] Glucose, Serum 145 mg/dL (Abnormal) Range: 65-99 :51 HgA1C , Office (40870) HgA1C , Office 6.7 % (Normal) Range: 4.6 - 7.1 7-Wsm-458724:50 CALCIFEDIOL (97735) Comments: A courtesy copy of this report has been sent [phone].PATIENT WAS FASTINGPERFORMED BY: ISVS6370 [place] [id number] Vitamin D, 25-Hydroxy 40.7 ng/mL (Normal) Range: 30.0-100.0 Comments: Vitamin D deficiency has been defined by the [place] ofUniversity Hospitals Tripoint Medical Centercine and an Endocrine Society practice guideline as alevel of serum 25-OH vitamin D less than 20 ng/mL (1,2).The Endocrine Society went on to further define vitamin Dinsufficiency as a level between 21 and 29 ng/mL (2).1. IOM ([place] of Medicine). 2010. Dietary reference intakes for calcium and D. [place]: The National Academies Press.2. Mira MF, Rosette LOPEZ, Tommy SWAIN, et al. Evaluation, treatment, and prevention of vitamin D deficiency: an Endocrine Society clinical practice guideline. JCEM. 2010; 96(7):1911-30. 4-Buu-111877:50 PTH (PARATHORMONE) (93653) Comments: A courtesy copy of this report has been sent [phone].PATIENT WAS FASTINGPERFORMED BY: ISVS6370 [place] [id number] PTH, Intact 20 pg/mL (Normal) Range: 15-65 3-Hki-460937:50 MICROALBUMIN: CREATININE RATIO Comments: A courtesy copy of this report has been sent [phone].PATIENT WAS FASTINGPERFORMED BY: [place] Udexga2259 [place] [id number] (68471) AND (54001) Microalb/Creat Ratio 4376.0 {mg/g_creat} (Abnormal) Range: 0.0-30.0 Microalbumin, Urine 3369.5 ug/mL (Normal) Comments: Results confirmed ondilution. Creatinine, Urine 77.0 mg/dL (Normal) :50 Renal function Panel Comments: A courtesy copy of this report has been sent [phone].PATIENT WAS FASTINGPERFORMED BY: Social CollectiveRobert Wood Johnson University HospitalUqznrv0052 [facility] [id number] Information: SARA DR. SANTANA [phone] (49769) Albumin, Serum 3.8 g/dL (Normal) Range: 3.5-4.8 [...] Glucose, Serum 203 mg/dL (Abnormal) Range: 65-99 9-Rhn-520124:50 Magnesium (62363) Comments: A courtesy copy of this report has been sent [phone].PATIENT WAS FASTINGPERFORMED BY: Social CollectiveRobert Wood Johnson University HospitalNpfzvx9443 [facility] [id number] Magnesium, Serum 1.8 mg/dL (Normal) Range: 1.6-2.3 2-Aog-108197:53 CBC with auto diff (92878) Comments: A courtesy copy of this report has been sent [phone].PATIENT WAS FASTINGPERFORMED BY: Social CollectiveRobert Wood Johnson University HospitalYucuru7191 [facility] [id number] Immature Grans (Abs) 0.0 {x10E3/uL} (Normal) Range: [...] {x10E3/uL} (Normal) Range: 3.4-10.8 :53 LIPID PANEL (07961) Comments: A courtesy copy of this report has been sent [phone].PATIENT WAS FASTINGPERFORMED BY: [facility]6370 [facility] [id number] LDL/HDL Ratio 1.2 {ratio_units} (Normal) Range: 0.0-3.2 [...] copy of this report has been sent [phone].PATIENT WAS FASTINGPERFORMED BY: [employer] Bvhars7659 [facility] [id number] (72415) ALT (SGPT) 11 [iU]/L (Normal) Range: 0-32 [...] (Abnormal) Range: 65-99 :57 HgA1C , Office (25048) HgA1C , Office 7.1 % (Normal) Range: 4.6 - 7.1 :09 LIPID PANEL (76192) Comments: PATIENT WAS FASTINGPERFORMED BY: [employer] Hmnjop6805 [facility] [id number] LDL/HDL Ratio 1.3 {ratio_units} (Normal) Range: 0.0-3.2 [...] PANEL, COMPREHENSIVE Comments: PATIENT WAS FASTINGPERFORMED BY: LabCoRobert Wood Johnson University HospitalGstndx5971 [facility] [id number] (33233) ALT (SGPT) 12 [iU]/L (Normal) Range: 0-32 [...] (Abnormal) Range: 65-99 :50 HgA1C , Office (71772) HgA1C , Office 6.7 % (Normal) Range: 4.6 - 7.1 :25 Magnesium, Serum 1.9 mg/dL (Normal) Comments: PATIENT WAS FASTINGPERFORMED BY: CyberX6370 [address] RoadDublin [place] [id number] Range: 1.6-2.3 :25 Microalb/Creat Ratio, Randm Ur Comments: PATIENT WAS FASTINGPERFORMED BY: CyberX6370 [address] RoadDublin [place] [id number] Microalb/Creat Ratio 2652.0 {mg/g_creat} Range: 0.0-30.0 (Abnormal) Microalbumin, Urine 2482.3 ug/mL (Normal) Comments: Results confirmed ondilution. Creatinine, Urine 93.6 mg/dL (Normal) PTH, Intact 26 pg/mL (Normal) Comments: PATIENT WAS FASTINGPERFORMED BY: [employer] Etmoft4437 Willoughby RoadGaN Systemsblin [place] [id number] :25 Range: 15-65 :25 Renal Panel (10) Comments: PATIENT WAS FASTINGPERFORMED BY: [employer] Kqjebw2271 [address] RoadDublin [place] [id number] Phosphorus, Serum 4.3 mg/dL (Normal) Range: 2.5-4.5 :25 Thyroxine (T4) Free, Direct, S Comments: PATIENT WAS FASTINGPERFORMED BY: [employer] Kjuilu9618 [address] RoadDublin [place] [id number] T4,Free(Direct) 1.08 ng/dL (Normal) Range: 0.82-1.77 : TSH 2.980 {uIU/mL} Comments: PATIENT WAS FASTINGPERFORMED BY: [employer] Zjiqjj7869 [address] RoadDublin [place] [id number] 25 (Normal) Range: 0.450-4.500 : Vitamin D, 25-Hydroxy 37.1 ng/mL (Normal) Comments: PATIENT WAS FASTINGPERFORMED BY: Social CollectiveRobert Wood Johnson University HospitalObtaes2692 [facility] [id number] 25 Range: 30.0-100.0 Comments: Vitamin D deficiency has been defined by the [place] ofMedicine and an Endocrine Society practice guideline as alevel of serum 25-OH vitamin D less than 20 ng/mL (1,2).The Endocrine Society went on to further define vitamin Dinsufficiency as a level between 21 and 29 ng/mL (2).1. IOM ([place] of Medicine). 2010. Dietary reference intakes for calcium and D. [place]: The National Academies Press.2. Mira MF, Rosette LOPEZ, Tommy SWAIN, et al. Evaluation, treatment, and prevention of vitamin D deficiency: an Endocrine Society clinical practice guideline. JCEM. 2010; 96(7):1911-30. :25 CBC W/AUTO DIFF WBC (88346) Comments: PATIENT WAS FASTINGPERFORMED BY: [employer] Qwalry4121 [facility] [id number] Immature Grans (Abs) 0.0 {x10E3/uL} (Normal) Range: [...] COMPREHENSIVE Comments: PATIENT WAS FASTINGPERFORMED BY: [facility] Byxjba7963 [facility] [id number]; non- emergent till apt (83317) ALT (SGPT) 10 [iU]/L (Normal) Range: 0-32 [...] mg/dL (Abnormal) Range: 65-99 :25 LIPID PANEL (64237) Comments: PATIENT WAS FASTINGPERFORMED BY: [facility]6370 [facility] [id number] LDL/HDL Ratio 0.9 {ratio_units} (Normal) Range: 0.0-3.2 Comments: LDL/HDL Ratio Men Women 1/2 Avg.Risk 1.0 1.5 Av g.Risk 3.6 3.2 2X Avg.Risk 6.2 5.0 3X Avg.Risk 8.0 6.1 LDL Cholesterol Calc 65 mg/dL (Normal) Range: 0-99 VLDL Cholesterol Cesra 19 mg/dL (Normal) Range: 5-40 HDL Cholesterol 75 mg/dL (Normal) Triglycerides 93 mg/dL (Normal) Range: 0-149 Cholesterol, Total 159 mg/dL (Normal) Range: 100-199 :54 HgA1C , Office (49321) HgA1C , Office 6.6 % (Normal) Range: 4.6 - 7.1 59-Vwy-870518:1 Magnesium, Serum 2.1 mg/dL (Normal) Comments: PATIENT WAS FASTINGPERFORMED BY: [facility]6370 [facility] [id number] 2 Range: 1.6-2.3 40-Fjb-347255:12 Microalb/Creat Ratio, Randm Ur Comments: PATIENT WAS FASTINGPERFORMED BY: [facility]6370 [facility] [id number] Microalb/Creat Ratio 1863.4 {mg/g_creat} (Abnormal) Range: 0.0-30.0 Microalbumin, Urine 1416.2 ug/mL (Normal) Comments: Results confirmed ondilution. Creatinine, Urine 76.0 mg/dL (Normal) 95-Yis-729485:12 Microscopic Examination Comments: PATIENT WAS FASTINGPERFORMED BY: [facility]6370 [facility] [id number] Bacteria None seen (Normal) Mucus Threads Present (Normal) Cast Type Hyaline casts (Normal) Casts Present {/lpf} (Abnormal) Epithelial Cells (non 0-10 {/hpf} Range: 0 - 10 renal) (Normal) RBC 3-10 {/hpf} Range: 0 - 2 (Abnormal) WBC 6-10 {/hpf} Range: 0 - 5 (Abnormal) PTH, Intact 36 pg/mL (Normal) Comments: PATIENT WAS FASTINGPERFORMED BY: ISVS6370 [facility] AfricaAt[facility] Health [facility] [id number] 0:12 Range: 15-65 Vitamin D, 25-Hydroxy 42.9 ng/mL (Normal) Comments: PATIENT WAS FASTINGPERFORMED BY: [employer]umBuldum.com70 [facility] AfricaAt[facility] [id number] 0:12 Range: 30.0-100.0 Comments: Vitamin D deficiency has been defined by the [place] ofUniversity Hospitals Tripoint Medical Centercine and an Endocrine Society practice guideline as alevel of serum 25-OH vitamin D less than 20 ng/mL (1,2).The Endocrine Society went on to further define vitamin Dinsufficiency as a level between 21 and 29 ng/mL (2).1. IOM ([place] of Medicine). 2010. Dietary reference intakes for calcium and D. [place]: The National Academies Press.2. Mira MF, Rosette NC, Tommy SWAIN, et al. Evaluation, treatment, and prevention of vitamin D deficiency: an Endocrine Society clinical practice guideline. JCEM. 2010; 96(7):1911-30. 84-Tau-866539:12 URINALYSIS, W/ MICRO (51172) Comments: PATIENT WAS FASTINGPERFORMED BY: ISVS6370 [facility] [id number] Microscopic Examination See below: (Normal) Comments: Microscopic was indicated and was performed. Nitrite, Urine Negative (Normal) Urobilinogen,Semi-Qn 0.2 mg/dL (Normal) Range: 0.2-1.0 Bilirubin Negative (Normal) Occult Blood Negative (Normal) Ketones Negative (Normal) Glucose Negative (Normal) Protein 4+ (Abnormal) WBC Esterase Trace (Abnormal) Appearance Clear (Normal) Urine-Color Yellow (Normal) pH 6.0 (Normal) Range: 5.0-7.5 Specific [place] 1.015 (Normal) Range: 1.005-1.030 45-Isv-625981:12 CBC W/AUTO DIFF WBC (91185) Comments: PATIENT WAS FASTINGPERFORMED BY: Social CollectiveRobert Wood Johnson University HospitalJkevdp7719 [facility] [id number] Immature Grans (Abs) 0.0 {x10E3/uL} (Normal) Range: [...] 3.77-5.28 WBC 6.2 {x10E3/uL} (Normal) Range: 3.4-10.8 04-Vco-578344:12 METABOLIC PANEL, COMPREHENSIVE Comments: PATIENT WAS FASTINGPERFORMED BY: [facility]6370 [facility] [id number] (80276) ALT (SGPT) 14 [iU]/L (Normal) Range: 0-32 [...] Glucose, Serum 154 mg/dL (Abnormal) Range: 65-99 72-Zvr-868392:12 LIPID PANEL (39438) Comments: PATIENT WAS FASTINGPERFORMED BY: LabCoRobert Wood Johnson University HospitalWxbkgp1209 [facility] [id number] LDL/HDL Ratio 0.7 {ratio_units} (Normal) Range: 0.0-3.2 Comments: LDL/HDL Ratio Men Women 1/2 Avg.Risk 1.0 1.5 Av g.Risk 3.6 3.2 2X Avg.Risk 6.2 5.0 3X Avg.Risk 8.0 6.1 LDL Cholesterol Calc 49 mg/dL (Normal) Range: 0-99 VLDL Cholesterol Cesar 14 mg/dL (Normal) Range: 5-40 HDL Cholesterol 75 mg/dL (Normal) Triglycerides 68 mg/dL (Normal) Range: 0-149 Cholesterol, Total 138 mg/dL (Normal) Range: 100-199 79-Ztx-546269:50 HgA1C , Office (13464) HgA1C , Office 6.7 % (Normal) Range: 4.6 - 7.1 61-Ntt-153257:36 VITAMIN B-12 (CYANOCOBALAMIN) Comments: PATIENT WAS FASTINGPERFORMED BY: [facility]6370 [facility] [id number] (99725) Vitamin B12 802 pg/mL (Normal) Range: 211-946 05-Lfr-787159:36 LIPID PANEL (68202) Comments: PATIENT WAS FASTINGPERFORMED BY: [facility]6370 [facility] [id number] LDL/HDL Ratio 0.8 {ratio_units} (Normal) Range: 0.0-3.2 [...] Cholesterol, Total 161 mg/dL (Normal) Range: 100-199 18-Cbx-230817:36 LDH (LD) (LACTATE DEHYDROGENASE) Comments: PATIENT WAS FASTINGPERFORMED BY: [facility]6370 [facility] [id number] (41534) LDH 217 [iU]/L (Normal) Range: 119-226 79-Ffr-660574:36 CBC W/AUTO DIFF WBC (39119) Comments: PATIENT WAS FASTINGPERFORMED BY: [facility]6370 [facility] [id number] Immature Grans (Abs) 0.0 {x10E3/uL} (Normal) Range: [...] 3.77-5.28 WBC 10.6 {x10E3/uL} (Normal) Range: 3.4-10.8 46-Zaz-563335:36 METABOLIC PANEL, COMPREHENSIVE Comments: PATIENT WAS FASTINGPERFORMED BY: [facility]6370 [facility] [id number] (23943) ALT (SGPT) 15 [iU]/L (Normal) Range: 0-32 [...] Glucose, Serum 137 mg/dL (Abnormal) Range: 65-99 20-Dyf-475850:36 TSH (42923) Comments: PATIENT WAS FASTINGPERFORMED BY: [facility] Vrbsmv6587 [facility] [id number] TSH 0.560 {uIU/mL} (Normal) Range: 0.450-4.500 30-Wmz-31025:02 Renal function Panel (92732) Comments: PATIENT WAS FASTINGPERFORMED BY: [facility] Ecctoo9291 [facility] [id number] Albumin, Serum 3.7 g/dL (Normal) Range: 3.5-4.8 [...] 137 mg/dL (Abnormal) Range: 65-99 :02 MAGNESIUM (73831) Comments: PATIENT WAS FASTINGPERFORMED BY: CytoValeAtrium Health [facility] [id number] Magnesium, Serum 2.2 mg/dL (Normal) Range: 1.6-2.3 :02 MICROALBUMIN: CREATININE RATIO Comments: PATIENT WAS FASTINGPERFORMED BY: [facility] HospitalGaN SystemsAtrium Health [facility] [id number] (86659) AND (40825) Microalb/Creat Ratio 2038.7 {mg/g_creat} (Abnormal) Range: 0.0-30.0 Microalbumin, Urine 1223.2 ug/mL (Normal) Comments: Results confirmed ondilution. Creatinine, Urine 60.0 mg/dL (Normal) :02 CBC WITH MANUAL DIFF Comments: PATIENT WAS FASTINGPERFORMED BY: [facility] HospitalGaN SystemsAtrium Health [facility] [id number] Information: [id number] CC:[id number] (66356) Immature Grans (Abs) 0.0 {x10E3/uL} (Normal) Range: [...] {x10E3/uL} (Normal) Range: 3.4-10.8 :02 HGB A1C (23797) Comments: PATIENT WAS FASTINGPERFORMED BY: [employer] Directorylin6370 [facility] [id number] Hemoglobin A1c 6.4 % (Abnormal) Range: 4.8-5.6 Comments: . Pre-diabetes: 5.7 - 6.4 Diabetes: >6.4 Glycemic control for adults with diabetes: <7.0 :02 Lipid Panel (67229) Comments: PATIENT WAS FASTINGPERFORMED BY: [employer] Iocwjx0696 [facility] [id number] LDL/HDL Ratio 1.1 {ratio_units} (Normal) Range: 0.0-3.2 [...] Cholesterol, Total 160 mg/dL (Normal) Range: 100-199 48-Aog-869751:03 HgA1C , Office (78221) HgA1C , Office 6.1 % (Normal) Range: 4.6 - 7.1 :24 CBC W/AUTO DIFF WBC Comments: PATIENT WAS FASTINGPERFORMED BY: LabCoRobert Wood Johnson University HospitalCfaylg0384 [facility] [id number] Information: [id number] (05402) Immature Grans (Abs) 0.0 {x10E3/uL} (Normal) Range: [...] CREATININE RATIO Comments: PATIENT WAS FASTINGPERFORMED BY: Social CollectiveRobert Wood Johnson University HospitalLvcplm9316 [facility] [id number] (52723) AND (26241) Microalb/Creat Ratio 1223.8 {mg/g_creat} (Abnormal) Range: 0.0-30.0 Microalbumin, Urine 1012.1 ug/mL (Abnormal) Range: 0.0-17.0 Comments: Results confirmed ondilution. Creatinine, Urine 82.7 mg/dL (Normal) Range: 15.0-278.0 :24 METABOLIC PANEL, COMPREHENSIVE Comments: PATIENT WAS FASTINGPERFORMED BY: Social CollectiveCrownpoint Healthcare FacilityYdvjqj4106 [facility] [id number] (57540) ALT (SGPT) 12 [iU]/L (Normal) Range: 0-32 [...] mg/dL (Abnormal) Range: 65-99 :24 LIPID PANEL (18040) Comments: PATIENT WAS FASTINGPERFORMED BY: [facility] Yfvqvc9983 [facility] [id number] LDL/HDL Ratio 1.1 {ratio_units} (Normal) Range: 0.0-3.2 [...] Range: 100-199 :30 CBC W/Diff, Automated Comments: [facility] Ug[address]notppmw[address] [place], [place], [id number] Absolute Lymph 0.83 {X10_3/ul} (Normal) Range: 0.83-4.51 [...] (Normal) Range: 4.4-11.0 :30 Hemoglobin A1c Comments: [facility] [address] [place], [place], [address](130) HGB A1C 6.1 % (Normal) Range: 4.2-6.3 :30 Magnesium Comments: [facility] [address] [place], [place], [address](257) MG 1.8 mg/dL (Normal) Range: 1.8-2.4 :30 Protein+Creatinine Ratio,Urine Comments: [facility] [address]te[address] [place], [place], [address](053) PROT:CRE RATIO 2121 {mg/g_CRE} (Abnormal) Range: 0-200 PROTEIN,UR.RAN. 164.2 mg/dL (Abnormal) UR CREAT 77.40 mg/dL (Normal) :30 Renal Profile Comments: [facility] [address] [place], [place], [address](656) CO2 27.0 mmol/L (Normal) Range: 21.0-32.0 CL [...] 126 mg/dLsuggests DIABETES MELLITUS per A.D.A. criteria. 92-Qpn-63293:00 24 HR UR Creatinine Clearance Comments: [facility] Nlyxwigamx9641 [facility] [place], [place], [phone] CREAT CLEARANCE 24 ml/min (Abnormal) Range: 100-200 URINE CREAT 20.6 mg/dL (Normal) EST GFR - AA 38 mL/min (Abnormal) Comments: GFR Calc EST GFR 31 mL/min (Abnormal) Comments: Non- GFR Calc SERUM CREAT 1.7 mg/dL (Abnormal) Range: 0.6-1.0 UR TOTAL VOLUME 2800 mL (Normal) UR COLLECT TIME 24.0 {HOURS} (Normal) 39-Qdp-45608:00 Protein, Urine 24HR Comments: [facility] Rewgtviefu6472 [facility] [place], [address] 24hr UR PROTEIN 1178.8 {mg/24HR} (Abnormal) URINE PROTEIN 42.1 mg/dL (Abnormal) UR TOTAL VOLUME 2800 mL (Normal) UR COLLECT TIME 24.0 {HOURS} (Normal) 1-Ebe-504921:29 Metabolic Panel, Basic Comments: PATIENT NOT FASTINGPERFORMED BY: [facility]ulmediaCorewell [facility]6370 [facility] [id number] Information: [id number] (85137) Calcium, Serum 9.3 mg/dL (Normal) Range: 8.7-10.3 [...] Basic Comments: tuesday; PATIENT NOT FASTINGPERFORMED BY: Social CollectiveRobert Wood Johnson University HospitalVvnidr0411 [facility] [id number] Information: [id number] (43494) Calcium, Serum 9.0 mg/dL (Normal) Range: 8.7-10.3 [...] Glucose, Serum 149 mg/dL (Abnormal) Range: 65-99 76-Pdf-978739:32 HgA1C , Office (57325) HgA1C , Office 6.2 % (Normal) Range: 4.6 - 7.1 :31 Rapid Strep Test, Office (51495) Comments: neg Rapid Strep Test, Office Negative (Normal) :06 THROAT CULTURE (17605) Comments: PATIENT NOT FASTINGPERFORMED BY: CB [facility] Xazzpl3965 [address] RoadDublin [place] [id number] Information: [id number] Result 1 RRF (Normal) Comments: Routine respiratory luis Upper Respiratory Culture Final report (Normal) :52 TSH (05783) Comments: PATIENT WAS FASTINGPERFORMED BY: CB [facility] Nypmcs7192 [address] RoadDublin [place] [id number] TSH 2.190 {uIU/mL} (Normal) Range: 0.450-4.500 :52 Vitamin D Hydroxy (30543) Comments: PATIENT WAS FASTINGPERFORMED BY: [facility] Ssrkxc6118 [address] RoadDublin [place] [id number] Vitamin D, 25-Hydroxy 43.8 ng/mL (Normal) Range: 30.0-100.0 Comments: Vitamin D deficiency has been defined by the [place] ofMedicine and an Endocrine Society practice guideline as alevel of serum 25-OH vitamin D less than 20 ng/mL (1,2).The Endocrine Society went on to further define vitamin Dinsufficiency as a level between 21 and 29 ng/mL (2).1. IOM ([place] of Medicine). 2010. Dietary reference intakes for calcium and D. [place]: The National Academies Press.2. Mira MF, Rosette NC, Tommy SWAIN, et al. Evaluation, treatment, and prevention of vitamin D deficiency: an Endocrine Society clinical practice guideline. JCEM. 2010; 96(7):1911-30. :52 LIPID PANEL (68461) Comments: PATIENT WAS FASTINGPERFORMED BY: [facility] Nawyrc2967 [address] RoadDublin [place] [id number] LDL/HDL Ratio 1.3 {ratio_units} (Normal) Range: 0.0-3.2 Comments: LDL/HDL Ratio Men Women 1/2 Avg.Risk 1.0 1.5 Av g.Risk 3.6 3.2 2X Avg.Risk 6.2 5.0 3X Avg.Risk 8.0 6.1 LDL Cholesterol Calc 74 mg/dL (Normal) Range: 0-99 Comments: Please note reference interval change VLDL Cholesterol Cesra 20 mg/dL (Normal) Range: 5-40 HDL Cholesterol 59 mg/dL (Normal) Comments: According to ATP-III Guidelines, HDL-C >59 mg/dL is considered anegative risk factor for CHD. Triglycerides 100 mg/dL (Normal) Range: 0-149 Comments: Please note reference interval change Cholesterol, Total 153 mg/dL (Normal) Range: 100-199 Comments: Please note reference interval change 04-Feb-20158:52 CBC with auto diff Comments: PATIENT WAS FASTINGPERFORMED BY: LabCoRobert Wood Johnson University HospitalOkjfzc5914 [facility] [id number] Information: [id number], [id number] (94520) Immature Grans (Abs) 0.0 {x10E3/uL} (Normal) Range: [...] PANEL, COMPREHENSIVE Comments: PATIENT WAS FASTINGPERFORMED BY: LabCoRobert Wood Johnson University HospitalVlrybh9936 [facility] [id number] (61479) ALT (SGPT) 19 [iU]/L (Normal) Range: 0-32 [...] Glucose, Serum 127 mg/dL (Abnormal) Range: 65-99 3-Gna-240335:08 HgA1C , Office (99483) HgA1C , Office 6.4 % (Normal) Range: 4.6 - 7.1 :00 Creatinine Clearance Comments: PATIENT NOT FASTINGPERFORMED BY: [facility]6370 [facility] [id number] Information: [id number] S TART Creatinine Clearance 33 mL/min (Abnormal) [...] Qn, 24-Hr Comments: PATIENT NOT FASTINGPERFORMED BY: LabCoRobert [facility] Johnson University HospitalUpytlx1099 [facility] [id number] Urine Prot,24hr calculated 1309.8 {mg/24_hr} (Abnormal) Range: 30.0-150.0 Protein,Total,Urine 70.8 mg/dL (Abnormal) Range: 0.0-15.0 :01 CBC W/Diff, Automated Comments: Test performed at:[facility] Goysagczgj[address] [place] [address] Absolute Neut 3.1 {X10_3/uL} (Normal) [...] Range: 4.4-11.0 :01 Magnesium Comments: Test performed at:[facility] [address] [place] [address] MG 2.0 mg/dL (Normal) Range: 1.8-2.4 :01 Protein+Creatinine Ratio,Urine Comments: Test performed at:[facility] L[address] [place] [address] PROT:CRE RATIO 2232 {mg/g_CRE} (Abnormal) Range: 0-200 PROTEIN,UR.RAN. 160.3 mg/dL (Abnormal) UR CREAT 71.8 mg/dL (Normal) :01 Renal Profile Comments: Test performed at:[facility] Fmzl[address]fs[address] [place] [address] CO2 32.0 mmol/L (Normal) Range: 21.0-32.0 CL [...] mg/dL (Normal) Range: 70-110 :08 LIPID PANEL (43222) Comments: PATIENT WAS FASTINGPERFORMED BY: Social CollectiveRobert Wood Johnson University HospitalHfqbdv7313 [facility] [id number] LDL/HDL Ratio 1.0 {ratio_units} (Normal) Range: 0.0-3.2 [...] METABOLIC PANEL, Comments: PATIENT WAS FASTINGPERFORMED BY: [facility]6370 [facility] [id number] Information: [id number] COMPREHENSIVE (87671) ALT (SGPT) 29 [iU]/L (Normal) Range: 0-32 [...] (Abnormal) Range: 65-99 :59 HgA1C , Office (41250) HgA1C , Office 6.5 % (Normal) Range: 4.6 - 7.1 :54 CBC W/AUTO DIFF WBC Comments: PATIENT WAS FASTINGPERFORMED BY: LabCoRobert [facility] Johnson University HospitalReglwb8305 [facility] [id number] Information: [id number] (82477) Immature Grans (Abs) 0.0 {x10E3/uL} (Normal) Range: [...] COMPREHENSIVE Comments: PATIENT WAS FASTINGPERFORMED BY: LabCo Ggmmdp8805 [facility] [id number]; non- emergent till apt (14840) ALT (SGPT) 13 [iU]/L (Normal) Range: 0-32 [...] mg/dL (Abnormal) Range: 65-99 :54 LIPID PANEL (20516) Comments: PATIENT WAS FASTINGPERFORMED BY: LabCoRobert [facility] Johnson University HospitalXvfvgc3612 [facility] [id number] LDL/HDL Ratio 1.1 {ratio_units} (Normal) Range: 0.0-3.2 [...] (Normal) Range: 100-199 :29 HgA1C , Office (05551) HgA1C , Office 6.6 % (Normal) Range: 4.6 - 7.1 :12 CBC W/Diff, Automated Comments: Test performed at:[facility] Tbyjzqskel[address] [place], [place] [address] ; handled by Dr. Santana Absolute Lymph [...] Range: 4.4-11.0 :12 Magnesium Comments: Test performed at:[facility] V[address] [place] [address] MG 2.0 mg/dL (Normal) Range: 1.8-2.4 :12 Microalb:Creat Ratio,Random UR Comments: Test performed at:[facility] R[address]ferfe[address] [place] [address] ; Dr. Angelo LING:CREAT 1483.0 {mg/g_CRE} (Abnormal) MICROALBUMIN,UR 918.0 mg/L (Normal) UR CREAT 61.9 mg/dL (Normal) :12 Renal Profile Comments: Test performed at:[facility] Agvlwoafpu[address] [place] [address] CO2 29.0 mmol/L (Normal) Range: 21.0-32.0 CL [...] 126 mg/dLsuggests DIABETES MELLITUS per A.D.A. criteria. 40-Gdl-160943:20 LIPID PANEL (82215) Comments: PATIENT WAS FASTINGPERFORMED BY: [employer] Directorylin6370 [facility] [id number] LDL/HDL Ratio 1.0 {ratio_units} (Normal) Range: 0.0-3.2 [...] Cholesterol, Total 151 mg/dL (Normal) Range: 100-199 15-Rle-714067:20 METABOLIC PANEL, Comments: PATIENT WAS FASTINGPERFORMED BY: LabCoRobert [facility] Johnson University HospitalWckgjr0050 [facility] [id number] Information: [id number] COMPREHENSIVE (94302) ALT (SGPT) 16 [iU]/L (Normal) Range: 0-32 [...] Glucose, Serum 148 mg/dL (Abnormal) Range: 65-99 96-Qwe-393884:21 CREATININE CLEARANCE Comments: PATIENT WAS FASTINGPERFORMED BY: LabCoRobert [facility] Johnson University HospitalTantah4874 [facility] [id number] Information: [id number] START 04/02/14@9AM FINISH 04/03/14 6:00 AM (88083) Creatinine Clearance 42 mL/min (Abnormal) Range: 88-128 Comments: The above range is based on 1.73 square meter average body surfacearea. Creatinine, Ur 24hr 812.3 {mg/24_hr} (Normal) Range: 800.0-1800.0 Creatinine, Urine 28.5 mg/dL (Normal) Range: 15.0-278.0 eGFR If Africn Am 45 mL/min/1.73 (Abnormal) eGFR If NonAfricn Am 39 mL/min/1.73 (Abnormal) Creatinine, Serum 1.33 mg/dL (Abnormal) Range: 0.57-1.00 13-Jeb-459841:21 Total Protein,24 Hour Urine Comments: PATIENT WAS FASTINGPERFORMED BY: [facility]6370 [facility] [id number] (12670) Prot,24hr calculated 1559.0 {mg/24_hr} (Abnormal) Range: 30.0-150.0 Protein,Total,Urine 54.7 mg/dL (Abnormal) Range: 0.0-15.0 :57 LIPID PANEL (37716) Comments: PATIENT WAS FASTINGPERFORMED BY: [facility]6370 [facility] [id number] LDL/HDL Ratio 1.1 {ratio_units} (Normal) Range: 0.0-3.2 [...] MANUAL DIFF Comments: PATIENT WAS FASTINGPERFORMED BY: [facility]6370 [facility] [id number] Information: [id number] (12317) Immature Grans (Abs) 0.0 {x10E3/uL} (Normal) Range: [...] PANEL, COMPREHENSIVE Comments: PATIENT WAS FASTINGPERFORMED BY: LabCoRobert Wood Johnson University HospitalTzsluc9660 [facility] [id number] (64717) ALT (SGPT) 10 [iU]/L (Normal) Range: 0-32 [...] Result Units: mg/dL AdultPerformed at: - [facility] [address] [id number] Director: Yousuf Bernardo PhD, Phone: [phone] C4 37 (Abnormal) Range: 9-36 0 [...] MANUAL DIFF Comments: PATIENT WAS FASTINGPERFORMED BY: [facility]6370 [facility] [id number] Information: [id number] (45493) Immature Grans (Abs) 0.0 {x10E3/uL} (Normal) Range: [...] 3.77-5.28 WBC 4.5 {x10E3/uL} (Normal) Range: 3.4-10.8 :21 METABOLIC PANEL, COMPREHENSIVE Comments: PATIENT WAS FASTINGPERFORMED BY: [facility]6370 [facility] [id number] (88334) ALT (SGPT) 16 [iU]/L (Normal) Range: 0-32 [...] Glucose, Serum 132 mg/dL (Abnormal) Range: 65-99 06-Xew-586247:53 CREATININE CLEARANCE Comments: PATIENT NOT FASTINGPERFORMED BY: EVE LabCoRobert Wood Johnson University HospitalCutcmc2770 [facility] [id number] Information: [id number] START 10/30/13@8AM F INISH 10/31/13@8AM 2650ML (66353) Creatinine Clearance 44 mL/min (Abnormal) Range: 88-128 Comments: The above range is based on 1.73 square meter average body surfacearea. Creatinine, Ur 24hr 877.2 {mg/24_hr} (Normal) Range: 800.0-1800.0 Creatinine, Urine 33.1 mg/dL (Normal) Range: 15.0-278.0 eGFR If Africn Am 44 mL/min/1.73 (Abnormal) eGFR If NonAfricn Am 38 mL/min/1.73 (Abnormal) Creatinine, Serum 1.37 mg/dL (Abnormal) Range: 0.57-1.00 90-Shd-576615:53 Total Protein,24 Hour Urine Comments: PATIENT NOT FASTINGPERFORMED BY: [facility] [id number] (66916) Prot,24hr calculated 3458.3 {mg/24_hr} (Abnormal) Range: 30.0-150.0 Protein,Total,Urine 130.5 mg/dL (Abnormal) Range: 0.0-15.0 19-Tnl-745919:31 HgA1C , Office (70421) HgA1C , Office 6.4 % (Normal) Range: 4.6 - 7.1 19-Eot-488067:27 Microscopic Examination Comments: PATIENT WAS FASTINGPERFORMED BY: [facility] [id number] Bacteria Few (Normal) Mucus Threads Present (Normal) Epithelial Cells (non renal) 0-10 {/hpf} (Normal) Range: 0 - 10 RBC 3-10 {/hpf} (Abnormal) Range: 0 - 2 WBC 6-10 {/hpf} (Abnormal) Range: 0 - 5 :32 LIPID PANEL (04102) Comments: PATIENT WAS FASTINGPERFORMED BY: [facility] [id number] LDL/HDL Ratio 1.0 {ratio_units} (Normal) Range: 0.0-3.2 [...] CREATININE RATIO Comments: PATIENT WAS FASTINGPERFORMED BY: CB [facility] [place] [id number] (11103) AND (15833) Microalb/Creat Ratio 1998.9 {mg/g_creat} (Abnormal) Range: 0.0-30.0 Creatinine, Urine 73.4 mg/dL (Normal) Range: 15.0-278.0 Microalbumin, Urine 1467.2 ug/mL (Abnormal) Range: 0.0-17.0 :32 URINALYSIS, W/ MICRO (23072) Comments: PATIENT WAS FASTINGPERFORMED BY: [facility]6370 [facility] [id number] Microscopic Examination See below: (Normal) Comments: Microscopic was indicated and was performed. Nitrite, Urine Negative (Normal) Urobilinogen,Semi-Qn 0.2 mg/dL (Normal) Range: 0.0-1.9 Bilirubin Negative (Normal) Occult Blood Trace (Abnormal) Ketones Negative (Normal) Glucose Negative (Normal) Protein 3+ (Abnormal) WBC Esterase Trace (Abnormal) Appearance Clear (Normal) Urine-Color Yellow (Normal) pH 6.5 (Normal) Range: 5.0-7.5 Specific [place] 1.015 (Normal) Range: 1.005-1.030 :32 CBC WITH MANUAL DIFF Comments: PATIENT WAS FASTINGPERFORMED BY: [facility]6370 [facility] [id number] Information: [id number] (62516) Immature Grans (Abs) 0.0 {x10E3/uL} (Normal) Range: [...] PANEL, COMPREHENSIVE Comments: PATIENT WAS FASTINGPERFORMED BY: LabCoRobert Wood Johnson University HospitalUrzukp6612 [facility] [id number] (02898) ALT (SGPT) 16 [iU]/L (Normal) Range: 0-32 [...] Glucose, Serum 135 mg/dL (Abnormal) Range: 65-99 36-Ito-39713:32 VITAMIN B-12 (CYANOCOBALAMIN) Comments: PATIENT WAS FASTINGPERFORMED BY: [employer] LabWineristHiztby6210 [facility] [id number] (74692) Vitamin B12 >1999 pg/mL (Abnormal) Range: 211-946 59-Dbr-781454:01 HgA1C , Office (84864) HgA1C , Office 6.4 % (Normal) Range: 4.6 - 7.1 :37 METABOLIC PANEL, COMPREHENSIVE Comments: PATIENT WAS FASTINGPERFORMED BY: [employer] [facility] Wgsrpr9459 [facility] [id number] (19350) ALT (SGPT) 12 [iU]/L (Normal) Range: 0-32 [...] (Abnormal) Range: 65-99 :37 Vitamin D Hydroxy (05519) Comments: PATIENT WAS FASTINGPERFORMED BY: [employer]dumBuldum[employer]com70 [facility] [id number] Vitamin D, 25-Hydroxy 47.4 ng/mL (Normal) Range: 30.0-100.0 Comments: Vitamin D deficiency has been defined by the [place] ofUniversity Hospitals Tri[facility] Medical Centercine and an Endocrine Society practice guideline as alevel of serum 25-OH vitamin D less than 20 ng/mL (1,2).The Endocrine Society went on to further define vitamin Dinsufficiency as a level between 21 and 29 ng/mL (2).1. IOM ([place] of Medicine). 2010. Dietary reference intakes for calcium and D. [place]: The National Academies Press.2. Mira MF, Rosette LOPEZ, Tommy SWAIN, et al. Evaluation, treatment, and prevention of vitamin D deficiency: an Endocrine Society clinical practice guideline. JCEM. 2010; 96(7):1911-30. :37 LIPID PANEL (08657) Comments: PATIENT WAS FASTINGPERFORMED BY: [employer] Vxafxy9163 [facility] [id number] LDL/HDL Ratio 1.2 {ratio_units} (Normal) Range: 0.0-3.2 [...] DIFF Comments: PATIENT WAS FASTINGPERFORMED BY: EVE [facility] Cpjpps7539 [facility] [id number] Information: [id number] (11500) Immature Grans (Abs) 0.0 {x10E3/uL} (Normal) Range: [...] 24-Hr Comments: PATIENT NOT FASTINGPERFORMED BY: EVE [facility]6370 [facility] [id number] Information: ADD [id number] AND DRAW FEE 99 6660 VOLUME 2600 164LBS 5' '3 Urine Prot,24hr calculated 920.4 {mg/24_hr} Range: 30.0-150.0 (Abnormal) Protein,Total,Urine 35.4 mg/dL Range: 0.0-15.0 (Abnormal) : Written Authorization WAR (Normal) Comments: PATIENT NOT FASTINGPERFORMED BY: [facility]Core[facility]6370 [facility] [id number] Comments: Written Authorization Received.Authorization received from Chiqui BRICEÑO LPN [id number] by Marleen Sharma :52 Metabolic Panel, Basic Comments: PATIENT NOT FASTINGPERFORMED BY: [place] 9825270 [facility] [id number] Information: ADD [id number] AND DRAW FEE 99 6660 VOLUME 2600 164LBS 5' '3 (71438) Calcium, Serum 9.7 mg/dL (Normal) Range: 8.6-10.2 [...] mg/dL (Abnormal) Range: 65-99 :52 CREATININE CLEARANCE (94001) Comments: PATIENT NOT FASTINGPERFORMED BY: [facility]6370 [facility] [id number] Creatinine Clearance 46 mL/min (Abnormal) Range: 88-128 Comments: The above range is based on 1.73 square meter average body surfacearea. Creatinine, Ur 24hr 899.6 {mg/24_hr} (Normal) Range: 800.0-1800.0 Creatinine, Urine 34.6 mg/dL (Normal) Range: 15.0-278.0 :52 24 hour urine for Protein Comments: PATIENT NOT FASTINGPERFORMED BY: Social CollectiveRobert Wood Johnson University HospitalAdzkpv2263 [facility] [id number] (27034) Microalb/Creat Ratio 695.4 {mg/g_creat} (Abnormal) Range: 0.0-30.0 Microalbumin, Urine 240.6 ug/mL (Abnormal) Range: 0.0-17.0 :13 HgA1C , Office (35947) HgA1C , Office 6.3 % (Normal) Range: 4.6 - 7.1 :01 Blood Glucose , Office (84088) Blood Glucose , Office 162 (Normal) 87-Rol-843649:02 Microscopic Examination Comments: PATIENT NOT FASTINGPERFORMED BY: Social CollectiveRobert Wood Johnson University HospitalNrfqai3106 [facility] [id number] Bacteria Few (Normal) Mucus Threads Present (Normal) [...] Hebert M.D.October 19, 2012 at 2:42:14 PM [id number] Signed GP/GP If you are the referring physician and would like to consult [facility] theradiologist who provided this interpretation, please contact Yasmany Pond at [phone]. If this radiologist is unavailable, youwill be directed to another radiologist to assist. If y ou are a patient with a question regarding this report, pleasecontactyour referring physician directly. Professional Interpretation Provided By: [employer], Phone , These documents contain legally protected and confidential healthinformation intended only for the use of the individual or entity namedabove. If you are not the intended recipient, you are hereby notifiedtholivia mendoza disclosure, copying, distribution, or other use of these documents isstrictly prohibited. If you have received this information in error,pleasenotify the sender immediately and arrange for the retu rn or destructionofthese documents. Dictated on 10/19/122 by Singh MANN,GabrieleTranscribed on 10/19/121442 by ITS IMPORTSign by Singh MANN,Misael on 10/19/124 Sign by: Misael Hebert MD 37-Mlq-479945:59 TSH (84946) Comments: PATIENT WAS FASTINGPERFORMED BY: [employer] Tvtwza9989 [facility] [id number] TSH 1.230 {uIU/mL} (Normal) Range: 0.450-4.500 27-Lhy-005725:59 LIPID PANEL (69377) Comments: PATIENT WAS FASTINGPERFORMED BY: [employer] Byeusb7979 [facility] [id number] LDL/HDL Ratio 0.5 {ratio_units} (Normal) Range: 0.0-3.2 LDL Cholesterol Calc 47 mg/dL (Normal) Range: 0-99 Cholesterol, Total 149 mg/dL (Normal) Range: 100-199 HDL Cholesterol 91 mg/dL (Normal) Comments: According to ATP-III Guidelines, HDL-C >59 mg/dL is considered anegative risk factor for CHD. Triglycerides 57 mg/dL (Normal) Range: 0-149 VLDL Cholesterol Cesar 11 mg/dL (Normal) Range: 5-40 06-Tqo-288192:02 URINALYSIS, W/ MICRO Comments: PATIENT NOT FASTINGPERFORMED BY: [employer] [facility] [id number] Information: [id number] (29821) Microscopic Examination See below: (Normal) Nitrite, Urine Negative (Normal) Bilirubin Negative (Normal) Urobilinogen,Semi-Qn 0.2 mg/dL (Normal) Range: 0.0-1.9 Occult Blood Negative (Normal) Ketones Negative (Normal) Glucose Negative (Normal) Protein 3+ (Abnormal) WBC Esterase Negative (Normal) Appearance Clear (Normal) Urine-Color Yellow (Normal) pH 5.5 (Normal) Range: 5.0-7.5 Specific [place] 1.015 (Normal) Range: 1.005-1.030 15-Gfa-252209:59 CBC WITH MANUAL DIFF Comments: PATIENT WAS FASTINGPERFORMED BY: [facility]6370 [facility] [id number] Information: [id number] (95901) Immature Grans (Abs) 0.0 {x10E3/uL} (Normal) Range: [...] 3.77-5.28 WBC 4.8 {x10E3/uL} (Normal) Range: 3.4-10.8 45-Rzv-644835:59 METABOLIC PANEL, COMPREHENSIVE Comments: PATIENT WAS FASTINGPERFORMED BY: LabCoRobert Wood Johnson University HospitalDygdyj0197 [facility] [id number] (79932) ALT (SGPT) 14 [iU]/L (Normal) Range: 0-32 [...] Glucose, Serum 104 mg/dL (Abnormal) Range: 65-99 6-Xao-457776:37 HgA1C , Office (28140) HgA1C , Office 6.0 % (Normal) Range: 4.6 - 7.1 8-Tcy-783158:31 CRE CREAT 1.3 mg/dL (Abnormal) Range: 0.6-1.0 [...] Galan M.D.August 09, 2012 at 2:38:03 PM [id number] Signed PV/PV If you are the referring physician and would like to consult with theradiologist who provided this interpretation, please contact Donna Burnett M.D. at [phone]. If this radiologist is unavailable, youwillbe directed to another radiologist to assist. If you are a patient with a question regarding this report, pleasecontactyour referring physician evelyne cowan. Professional Interpretation Provided By: [employer], Phone , These documents contain legally protected [...] 08/09/12 1441 Sign by: Donna Martin MD 82-Otg-396329:31 CBC with manual diff Comments: PATIENT NOT FASTINGPERFORMED BY: [facility] Qptlwg1814 [facility] [id number] Information: [id number] (94608) Immature Grans (Abs) 0.0 {x10E3/uL} (Normal) Range: [...] 3.77-5.28 WBC 3.2 {x10E3/uL} (Abnormal) Range: 4.0-10.5 28-Qkd-394744:31 Metabolic Panel, Comprehensive Comments: PATIENT NOT FASTINGPERFORMED BY: LabCoRobert Wood Johnson University HospitalKlvjfu5533 [facility] [id number] (90453) ALT (SGPT) 19 [iU]/L (Normal) Range: 0-32 [...] mg/dL (Abnormal) Range: 65-99 :31 LIPID PANEL (65932) Comments: PATIENT WAS FASTINGPERFORMED BY: [employer]um[employer]com70 [facility] [id number] LDL/HDL Ratio 0.8 {ratio_units} (Normal) Range: 0.0-3.2 [...] MANUAL DIFF Comments: PATIENT WAS FASTINGPERFORMED BY: [facility] GardensRobert Wood Johnson University HospitalNeezlw9921 [facility] [id number] Information: [id number] (57203) Immature Grans (Abs) 0.0 {x10E3/uL} (Normal) Range: [...] PANEL, COMPREHENSIVE Comments: PATIENT WAS FASTINGPERFORMED BY: LabCoRobert Wood Johnson University HospitalZpaeqh7917 [facility] [id number] (32158) ALT (SGPT) 22 [iU]/L (Normal) Range: 0-32 [...] (Abnormal) Range: 65-99 :45 HgA1C , Office (58815) HgA1C , Office 6.1 % (Normal) Range: 4.6 - 7.1 71-Npd-516474:16 CRE CREAT 1.1 mg/dL (Abnormal) Range: 0.6-1.0 [...] Galan M.D.February 02, 2012 at 5:10:18 PM [id number] Signed PV/PV If you are the referring physician and w sarahild like to consult with theradiologist who provided this interpretation, please contact Donna Burnett M.D. at [phone]. If this radiologist is unavailable, youwillbe directed to another radiol ogist to assist. If you are a patient with a question regarding this report, pleasecontactyour referring physician directly. Professional Interpretation Provided By: [employer], Phone ,Fa x [phone] These documents contain legally protected and confidential [...] MANN,DonnaTranscribed on 02/02/121712 by ITS IMPORTSign by Mario MANN,Donna on 02/02/121713 S ign by: Mario MANN,Donna 05-Eok-538551:16 DEXA BONE DENSITY STUDY (HP) Radiology Report [...] below thestandard which is normal for young vikci lts at their peak bone mineraldensity. The [...] Coronel M.D.January 20, 2012 at 2:43:46 PM [id number] Signed KERA/KERA If you ar e the [...] 01/20/12 1447 Sign by: David Coronel MD 02-Psh-980116:15 BILAT SCRN DIGITAL & CAD Radiology Report [...] Coronel M.D.January 20, 2012 at 1:20:11 PM [id number] Signed KERA/KERA If you are the referring physician and would like to consult with theradiologist who provided this interpretation, please contact Yasmany Parnell at . If this radiologist is unavailable,youwill be directed to another radiologist to assist. If you are a patient with a question regarding this report, pleasecontactyour referring physician directly. Professional Interpretation Provided By: [employer], Phone , These documents contain legally protected [...] 01/20/12 1324 Sign by: David Coronel MD 2-Gll-641835:56 PELVIC (NON ) Radiology Report See Note [...] Vuong M.D.January 10, 2012 at 8:39:09 PM [id number] Signed JOHNNY/JOHNNY If you are the referring physician and would like to consult with theradiologist who provided this inte rpretation, please contact Radha Vuong M.D. at [phone]. If this radiologist is unavailable, you will bedirected to another radiologist to assist. If you are a patient with a question regarding this r eport, pleasecontactyour referring physician directly. Professional Interpretation Provided By: [employer], Phone , PROCEDURE: ULTRASOUND OF THE FEMALE [...] Vuong M.D.January 10, 2012 at 8:40:07 PM [id number] Signed JONHNY/JOHNNY If you are the referring physician and would like to consult with theradiologist who provided this interpretation, please contact Radha Vuong M.D. at [phone]. If this radiologist is unavailable, you will bedirected to another radiologist to assist. If you are a patient with a question regarding this report, pleasecontactyour referring ph ysician directly. Professional Interpretation Provided By: [employer], Phone , These documents contain legally protected [...] Dictated on 01/10/12 1309 by Nahum VUONG MDst. joseph hospital ribed on 01/11/12 1113 by ITS IMPORTSign by RADHA VUONG MD on 01/11/12 1114 Sign by: RADHA VUONG MD :35 MICROALBUMIN: CREATININE RATIO Comments: PATIENT WAS FASTINGPERFORMED BY: [employer] Directorylin6370 [facility] [id number] (57484) AND (84473) Microalb/Creat Ratio 829.4 {mg/g_creat} (Abnormal) Range: 0.0-30.0 Microalbumin, Urine 437.1 ug/mL (Abnormal) Range: 0.0-17.0 Creatinine, Urine 52.7 mg/dL (Normal) Range: 15.0-278.0 :35 CBC WITH MANUAL DIFF Comments: PATIENT WAS FASTINGPERFORMED BY: [facility] GardensRobert Wood Johnson University HospitalXratzm3859 [facility] [id number] Information: [id number] (56722) Immature Grans (Abs) 0.0 {x10E3/uL} (Normal) Range: [...] 3.77-5.28 WBC 3.7 {x10E3/uL} (Abnormal) Range: 4.0-10.5 34-Rux-84774:35 METABOLIC PANEL, COMPREHENSIVE Comments: PATIENT WAS FASTINGPERFORMED BY: LabCoRobert Wood Johnson University HospitalMthule9057 [facility] [id number] (68850) ALT (SGPT) 15 [iU]/L (Normal) Range: 0-32 [...] mg/dL (Abnormal) Range: 65-99 :35 LIPID PANEL (44344) Comments: PATIENT WAS FASTINGPERFORMED BY: [facility]At[facility] [id number] LDL/HDL Ratio 0.9 {ratio_units} (Normal) Range: 0.0-3.2 LDL Cholesterol Calc 72 mg/dL (Normal) Range: 0-99 HDL Cholesterol 83 mg/dL (Normal) Comments: According to ATP-III Guidelines, HDL-C >59 mg/dL is considered anegative risk factor for CHD. VLDL Cholesterol Cesar 18 mg/dL (Normal) Range: 5-40 Triglycerides 90 mg/dL (Normal) Range: 0-149 Cholesterol, Total 173 mg/dL (Normal) Range: 100-199 :15 HgA1C , Office (13743) HgA1C , Office 6.2 % (Normal) Range: 4.6 - 7.1 :30 CBC WITH MANUAL DIFF Comments: PATIENT WAS FASTINGPERFORMED BY: [facility]At[facility] [id number] Information: [id number] (41421) Immature Grans (Abs) 0.0 {x10E3/uL} (Normal) Range: [...] 3.77-5.28 WBC 4.2 {x10E3/uL} (Normal) Range: 4.0-10.5 70-Lmp-84052:30 METABOLIC PANEL, COMPREHENSIVE Comments: PATIENT WAS FASTINGPERFORMED BY: LabCoRobert Wood Johnson University HospitalJnvyqy8905 [facility] [id number] (80552) ALT (SGPT) 19 [iU]/L (Normal) Range: 0-40 [...] mg/dL (Abnormal) Range: 65-99 :30 LIPID PANEL (86349) Comments: PATIENT WAS FASTINGPERFORMED BY: LabCoRobert Wood Johnson University HospitalYjyktt5222 [facility] [id number] LDL/HDL Ratio 0.9 {ratio_units} (Normal) Range: 0.0-3.2 [...] note reference interval change :48 Rapid Flu (15332 x 2) Influenza A Ag negative (Normal) [...] redmond M.D.November 05, 2011 at 3:25:08 PM [id number] Signed GP/GP If you are the referring physician and would like to consult with theradiologist who provided this interpretation, please contact Yasmany Pond at [phone]. If this radiologist is unavailable, youwill be directed to another radiologist to assist. If you are a patient with a question regarding this report, ple [facility]contactyour referring physician directly. Professional Interpretation Provided By: [employer], Phone , These documents contain legally protected [...] redmond M.D.November 05, 2011 at 3:25:08 PM [id number] Signed GP/GP If you are the referring physician and would like to consult with theradiologist who provided this interpretation, please contact Yasmany Pond at [phone]. If this radiologist is unavailable, youwill be directed to another radiologist to assist. If you are a patient with a question regarding this report, ple asecontactyour referring physician directly. Professional Interpretation Provided By: [employer], Phone , These documents contain legally protected [...] on 11/05/11 1551 by ITS IMPORTSign by Singh MANN,Misael on 11/05/11 1552 Sign by: Misael Hebert MD 49-Zwz-528040:20 METABOLIC PANEL, Comments: PATIENT WAS FASTINGPERFORMED BY: LabCoRobert Wood Johnson University HospitalYsvdzi5090 [facility] [id number] Information: [id number],2ND ORDER NO DRAW F [facility] (16347) ALT (SGPT) 31 [iU]/L (Normal) Range: 0-40 [...] Creatinine Clearance Comments: PATIENT WAS FASTINGPERFORMED BY: SimulmediaCorewell [facility] Hospital6370 [facility] [id number] Information: 10/30@6AM 10/31@730AM Creatinine Clearance 58 mL/min [...] Qn, 24-Hr Comments: PATIENT WAS FASTINGPERFORMED BY: Social CollectiveRobert Wood Johnson University HospitalVqzstk7600 [facility] [id number] Urine Prot,24hr calculated 1023.8 {mg/24_hr} (Abnormal) Range: 30.0-150.0 Protein,Total,Urine 52.5 mg/dL (Abnormal) Range: 0.0-15.0 :04 HgA1C , Office (25237) HgA1C , Office 6.1 % (Normal) Range: [...] regarding this repor t, please call our 74O2khgcmws line @ Dictated on 07/27/11 1040 by GAYE PEREZ MD RTranscribed on 07/28/11 122 by ITS IMPORTSign by GAYE PEREZ MD on 07/28/111224 Sign by: GAYE PEREZ MD :54 Vitamin D Hydroxy (14942) Comments: PATIENT WAS FASTINGPERFORMED BY: ISVS6370 [place] [id number] Vitamin D, 25-Hydroxy 48.8 ng/mL (Normal) Range: 30.0-100.0 Comments: Vitamin D deficiency has been defined by the [place] ofMedicine and an Endocrine Society practice guideline as alevel of serum 25-OH vitamin D less than 20 ng/mL (1,2).The Endocrine Society went on to further define vitamin Dinsufficiency as a level between 21 and 29 ng/mL (2).1. IOM ([place] of Medicine). 2010. Dietary reference intakes for calcium and D. [place]: The National Academies Press.2. Mira MF, Rosette LOPEZ, Tommy SWAIN, et al. Evaluation, treatment, and prevention of vitamin D deficiency: an Endocrine Society clinical practice guideline. JCEM. 2010; 96(7):1911-30. :54 LIPID PANEL (45270) Comments: PATIENT WAS FASTINGPERFORMED BY: [id number] [facility]AlignAt[facility] [id number] LDL/HDL Ratio 1.0 {ratio_units} (Normal) Range: 0.0-3.2 [...] MANUAL DIFF Comments: PATIENT WAS FASTINGPERFORMED BY: [employer] Swrwyf4784 [facility]AlignAt[facility] [id number] Information: ADD [id number] AND DRAW FEE 99 9748 (74716) Immature Grans (Abs) 0.0 {x10E3/uL} (Normal) Range: [...] 3.77-5.28 WBC 4.3 {x10E3/uL} (Normal) Range: 4.0-10.5 40-Nhv-20707:54 METABOLIC PANEL, COMPREHENSIVE Comments: PATIENT WAS FASTINGPERFORMED BY: LabCoRobert Wood Johnson University HospitalFpfpyu2762 [facility] [id number] (36486) ALT (SGPT) 48 [iU]/L (Abnormal) Range: 0-40 [...] (Abnormal) Range: 65-99 :18 HgA1C , Office (58027) HgA1C , Office 6.1 % (Normal) Range: 4.6 - 7.1 :18 Blood Glucose , Office (05799) Blood Glucose , Office 103 (Normal) 53-Egi-68699:00 ABDOMEN WITH AND W/O CONTRAST Radiology Report [...] radiologist regarding this report, please call our 50E5uvorstl line @ Dictated on 03/18/11 1715 by Keaton MANN,Sergeranscribed on 03/22/11 1401 by ITS IMPORTSign by Jeanette Hill MD on 03/22/11 1402 Sign by: Jeanette Pugh MD 42-Yhj-739415:29 SERUM CRE & GFR CREAT,SERUM 1.1 mg/dL (Abnormal) Range: 0.6-1.0 21-Bkg-01934:00 BRAIN W/WO CONTRAST Radiology Report See Note [...] 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 The cortical [...] 03/02/11 173 Sign by: Donna Martin MD 14-Yhq-99748:00 UPPER EXT. JOINT ONLY(ROUTINE) Radiology Report See [...] on 03/04/11 1035 Sign by: Ankur Duncan 01-Vqd-692893:08 SHOULDER,MIN 2 VIEWS Radiology Report See Note [...] . Dictate d on 02/17/11 1107 by Jennie Pugh MDieTranscribed on 02/17/11 120 by ITS IMPORTSign by [...] 02/01/11 1021 Sign by: ALEJANDRO DRUMMOND DO 83-Gac-323888:57 SINUS/FACIAL BONE Radiology Report See Note (Normal) [...] 01/19/11 1448 Sign by: Misael Hebert MD 13-Ofw-71958:00 BRAIN W/WO CONTRAST Radiology Report See Note [...] addition, there is a small region of prjetrpdvF4rrerfzuxli along the anterior margin of the mass, [...] on 01/19/111650 Sign by: GAYE PEREZ MD 25-Svi-00125:00 BRAIN/HEAD W/WO CONTRAST Radiology Report See Note [...] of surroundingedema. Dictated on 01/19/11 1347 by Jose Hebert MDribed on 01/19/11 1446 by ITS IMPORTSign by Misael Hebert MD on 01/19/11 1447 Sign by: Misael Hebert MD 63-Wge-875317:08 BILAT SCRN DIGITAL & CAD Radiology Report [...] CREATININE RATIO Comments: PATIENT NOT FASTINGPERFORMED BY: LabCoRobert Wood Johnson University HospitalZcstoj7088 [facility] [id number] (16307) AND (72526) Microalb/Creat Ratio 1028.4 {mg/g_creat} (Abnormal) Range: 0.0-30.0 Microalbumin, Urine 1341.0 ug/mL (Abnormal) Range: 0.0-17.0 Creatinine, Urine 130.4 mg/dL (Normal) Range: 15.0-278.0 :20 CBC WITH MANUAL DIFF (66271) Comments: PATIENT NOT FASTINGPERFORMED BY: [facility] Vcsngg9765 [facility] [id number] Immature Grans (Abs) 0.0 {x10E3/uL} (Normal) Range: [...] 3.80-5.10 WBC 4.1 {x10E3/uL} (Normal) Range: 4.0-10.5 7-Mar-26637:20 LIPID PANEL (53115) Comments: PATIENT NOT FASTINGPERFORMED BY: Social CollectiveRobert Wood Johnson University HospitalMyzunj2061 [facility] [id number] LDL/HDL Ratio 0.9 {ratio_units} (Normal) Range: 0.0-3.2 [...] PANEL, COMPREHENSIVE Comments: PATIENT NOT FASTINGPERFORMED BY: [employer] Qnqjew5520 [facility] [id number] (86053) ALT (SGPT) 28 [iU]/L (Normal) Range: 0-40 [...] (Abnormal) Range: 65-99 :39 HgA1C , Office (58516) HgA1C , Office 6.5 % (Normal) Range: 4.6 - 7.1 :39 Blood Glucose , Office (17628) Blood Glucose , Office 128 (Normal) :19 CBC With Differential/Platelet Comments: PATIENT WAS FASTINGPERFORMED BY: [facility] Nyhfjj5787 [facility] [id number] Immature Grans (Abs) 0.0 {x10E3/uL} (Normal) Range: [...] 3.80-5.10 WBC 5.6 {x10E3/uL} (Normal) Range: 4.0-10.5 5-Fvg-826288:19 Comp. Metabolic Panel (14) Comments: PATIENT WAS FASTINGPERFORMED BY: LabCo Riadta6566 [facility] [id number]; appt 01/11/11 ALT (SGPT) 18 [iU]/L (Normal) [...] Glucose, Serum 113 mg/dL (Abnormal) Range: 65-99 9-Ukf-804700:19 Lipid Panel With LDL/HDL Comments: PATIENT WAS FASTINGPERFORMED BY: BuldumBuldum.com70 [facility] [id number] Ratio LDL/HDL Ratio 1.0 {ratio_units} Range: 0.0-3.2 [...] 0.800 {uIU/mL} Comments: PATIENT WAS FASTINGPERFORMED BY: ISVS6370 [facility] [id number] 2:19 (Normal) Range: 0.450-4.500 Vitamin D, 25-Hydroxy 44.0 ng/mL (Normal) Comments: PATIENT WAS FASTINGPERFORMED BY: ISVS6370 [facility] [id number] 2:19 Range: 32.0-100.0 Comments: Effective February 22, 2011 Vitamin D, 25-Hydroxy reference intervals will be changing to 30-100. .Recent studies consider the lower li sandra of 32.0 ng/mL to be athreshold for optimal health.Otf HAYES. J Nutr. 2004;135(2):317-22. :54 HgA1C , Office (19118) HgA1C , Office 6.6 % (Normal) Range: 4.6 - 7.1 :54 Blood Glucose , Office (77269) Blood Glucose , Office 134 (Normal) 4-Tqf-617870:40 Creatinine Clearance Comments: PERFORMED BY: [employer] Ufgpji9548 [facility] AfricaAt[facility] [id number] Information: 10/07@7AM 10/08@3AM Creatinine Clearance 56 mL/min [...] Protein Total, Qn, 24-Hr Comments: PERFORMED BY: CyberX6370 [facility]AlignAt[facility] [id number] Urine Prot,24hr calculated 610.5 {mg/24_hr} (Abnormal) Range: 30.0-150.0 Protein,Total,Urine 40.7 mg/dL (Abnormal) Range: 0.0-15.0 :46 Vitamin D Hydroxy (43989) Comments: PATIENT WAS FASTINGPERFORMED BY: [employer] Yfakmd4675 [place] TCZ HoldingsAt[facility] Health [facility] [id number] Vitamin D, 25-Hydroxy 36.5 ng/mL (Normal) Range: 32.0-100.0 Comments: Recent studies consider the lower limit of 32.0 ng/mL to be athreshold for optimal health.Otf HAYES. J Nutr. 2004;135(2):317-22. :46 METABOLIC PANEL, COMPREHENSIVE Comments: PATIENT WAS FASTINGPERFORMED BY: FABPulous70 [facility] [id number] (88420) ALT (SGPT) 34 [iU]/L (Normal) Range: 0-40 [...] Glucose, Serum 116 mg/dL (Abnormal) Range: 65-99 7-Dcu-592437:46 LIPID PANEL (06911) Comments: PATIENT WAS FASTINGPERFORMED BY: LabCoRobert Wood Johnson University HospitalCqttke8190 [facility] [id number] LDL Cholesterol Calc 85 mg/dL (Normal) Range: 0-99 LDL/HDL Ratio 1.2 {ratio_units} (Normal) Range: 0.0-3.2 VLDL Cholesterol Cesar 28 mg/dL (Normal) Range: 5-40 HDL Cholesterol 69 mg/dL (Normal) Comments: According to ATP-III Guidelines, HDL-C >59 mg/dL is considered anegative risk factor for CHD. Cholesterol, Total 182 mg/dL (Normal) Range: 100-199 Triglycerides 141 mg/dL (Normal) Range: 0-149 1-Mcy-269120:46 CBC WITH MANUAL DIFF Comments: PATIENT WAS FASTINGPERFORMED BY: LabCoRobert Wood Johnson University HospitalTrqzpx9548 [facility] [id number] Information: [id number]; appt 10/12/10 (30805) Immature Grans (Abs) 0.0 {x10E3/uL} (Normal) Range: [...] 3.80-5.10 WBC 5.5 {x10E3/uL} (Normal) Range: 4.0-10.5 5-Olk-055133:07 HgA1C , Office (10465) HgA1C , Office 6.6 % (Normal) Range: 4.6 - 7.1 :07 Blood Glucose , Office (61334) Blood Glucose , Office 114 (Normal) 94-Kql-230434:00 Creatinine Clearance Comments: PERFORMED BY: Social CollectiveRobert Wood Johnson University HospitalZxkkdp1237 [facility] [id number] Information: 12/31@8AM 01/01@4AM Creatinine Clearance 48 mL/min [...] Creatinine, Serum 1.20 mg/dL (Abnormal) Range: 0.57-1.00 34-Gsg-526102:00 Protein Total, Qn, 24-Hr Comments: PERFORMED BY: SimulmediaCorewell [facility] Hospital6370 [facility] [id number] Urine Prot,24hr calculated 1070.6 {mg/24_hr} (Abnormal) Range: 30.0-150.0 Protein,Total,Urine 79.3 mg/dL (Abnormal) Range: 0.0-15.0 82-Gqq-937814:48 BILAT SCRN DIGITAL & CAD Radiology Report See Note (Normal) Comments: Exam Number: [id number] MAMMOGRAPHY - BILATERAL SCREENING INDICATION:Routine annual screening [...] of attaching a ResultCode to this exam.ADDENDUM: [id number] HPBI/MDS Reported By: MISAEL HEBERT 84-Bif-922395:48 DEXA BONE DENSITY STUDY (HP) Radiology Report See Note (Normal) Comments: Exam Number: [id number] CLINICAL:This is a 69-year-old female patient with postmenopausal screening. EXAMINATION:DUAL ENERGY X-RAY ABSORPTIOMETRY / DEXA. TECHNIQUE:Bone Density Measurements (BMD) of lumb ar spine and bilateral hipswere obtained using a [employer] scanner.. COMPARISON:None. FINDINGS: Lumbar Spine (L1-L4): g/cm2 [...] Osteoporosis Foundation http://www.nof.org Reported By: MISAEL HEBERT 26-Llt-518221:29 HgA1C , Office (64059) HgA1C , Office 6.5 % (Normal) Range: 4.6 - 7.1 10-Fmi-493298:29 Blood Glucose , Office (20866) Blood Glucose , Office 109 (Normal) 43-Qau-36662:05 CBC With Differential/Platelet Comments: PATIENT WAS FASTINGPERFORMED BY: LabCoRobert Wood Johnson University HospitalZdzxsd5608 [facility] [id number] Immature Grans (Abs) 0.0 {x10E3/uL} (Normal) Range: [...] 3.80-5.10 WBC 3.9 {x10E3/uL} (Abnormal) Range: 4.0-10.5 30-Ppb-76075:05 Comp. Metabolic Panel (14) Comments: PATIENT WAS FASTINGPERFORMED BY: LabCo Rxpxbn8124 [facility] [id number] ALT (SGPT) 20 [iU]/L (Normal) Range: 0-40 [...] With LDL/HDL Comments: PATIENT WAS FASTINGPERFORMED BY: BuldumBuldum.com70 CoAlignAtrium Health [facility] [id number] Ratio HDL Cholesterol 54 mg/dL (Normal) Comments: [...] ng/mL (Normal) Comments: PATIENT WAS FASTINGPERFORMED BY: ISVS6370 [facility] AfricaAt[facility] [id number] :05 Range: 32.0-100.0 Comments: Recent studies consider the lower limit of 32.0 ng/mL to be athreshold for optimal health.Otf HAYES. J Nutr. 2004;135(2):317-22. :41 SPLEEN (HP) Radiology Report See Note (Normal) Comments: Exam Number: [id number] ULTRASOUND OF THE SPLEEN A goal directed [...] Protein, 0.5 mg/L (Normal) Comments: PERFORMED BY: FABPulous70 [facility] [place] [id number] 10:54 Quant Range: 0.0-4.9 17-Jun-2009 Hemoglobin A1c 6.3 % (Abnormal) Comments: PERFORMED BY: FABPulous70 [facility]RegisterPatientAtrium Health [place] [id number] 10:54 Range: 4.8-5.6 Comments: Increased risk for diabetes: 5.7 - 6.4Diabetes: >6.4Glycemic control for adults with diabetes: <7.0.Please note reference interval change 17-Jun-2009 Sedimentation 4 mm/h (Normal) Comments: PERFORMED BY: mediaBunker [place] [facility] [id number] 10:54 Rate-Westergren Range: 0-30 17-Jun-2009 Vitamin B12 1372 pg/mL Comments: PERFORMED BY: [employer] [facility] [facility] [id number] 10:54 (Abnormal) Range: 211-911 Comments: Effective July 14, 2009, Vitamin B12 will bechanging to the [place] ECLIA methodology. Thereference interval will be changing to:211 - 946 pg/mL 17-Jun-2009 Vitamin D, 25-Hydroxy 37.7 ng/mL Comments: PERFORMED BY: [employer] Ijxuvi5644 [facility] [id number] 10:54 (Normal) Range: 32.0-100.0 Comments: Recent studies consider the lower limit of 32.0 ng/mL to be athreshold for optimal health.Otf HAYES. J Nutr. 2004;135(2):317-22. 11-Bvr-133396:34 Vitamin D Hydroxy Comments: PATIENT NOT FASTINGPERFORMED BY: [employer] Ywesce8782 [facility] [id number] Information: [id number],2ND ORDER NO DRAW Constance EE (09852) Vitamin D, 25-Hydroxy 48.5 ng/mL (Normal) Range: 30.0-100.0 Comments: Vitamin D deficiency has been defined by the [place] ofMedicine and an Endocrine Society practice guideline as alevel of serum 25-OH vitamin D less than 20 ng/mL (1,2).The Endocrine Society went on to further define vitamin Dinsufficiency as a level between 21 and 29 ng/mL (2).1. IOM ([place] of Medicine). 2010. Dietary reference intakes for calcium and D. [place]: The National AcademThe [employer] Press.2. Mira MF, Rosette LOPEZ, Tommy SWAIN, et al. Evaluation, treatment, and prevention of vitamin D deficiency: an Endocrine Society clinical practice guideline. JCEM. 2010; 96(7):1911-30. :50 HgA1C , Office (84586) HgA1C , Office 6.7 % (Normal) Range: 4.6 - 7.1 :50 Blood Glucose , Office (49637) Blood Glucose , Office 117 (Normal) 46-Ccu-053110:12 CBC With Differential/Platelet Comments: PERFORMED BY: LabLori Ville 8517670 [facility] [id number] Information: 06/10@6AM3/10@330AM Hematology Comments: Note: (Normal) Comments: [...] 3.80-5.10 WBC 3.6 {x10E3/uL} (Abnormal) Range: 4.0-10.5 22-Rgi-652355:12 Comp. Metabolic Panel (14) Comments: PERFORMED BY: [facility]6370 [facility] [id number] Alkaline Phosphatase, S 68 [iU]/L (Normal) Range: [...] Glucose, Serum 124 mg/dL (Abnormal) Range: 65-99 43-Hhi-146610:12 Creatinine Clearance Comments: PERFORMED BY: [facility] [id number] Creatinine Clearance 49 mL/min (Abnormal) Range: 88-128 Comments: The above range is based on 1.73 square meter average body surfacearea. Creatinine, Ur 24hr 800.0 {mg/24_hr} (Normal) Range: 800.0-1800.0 Creatinine, Urine 40.0 mg/dL (Normal) Range: 15.0-278.0 90-Iwv-699341:12 Lipid Panel With LDL/HDL Comments: PERFORMED BY: [employer] [facility] [id number] Ratio HDL Cholesterol 61 mg/dL (Normal) Comments: According to ATP-III Guidelines, HDL-C >59 mg/dL is considered anegative risk factor for CHD. LDL Cholesterol Calc 74 mg/dL (Normal) Range: 0-99 LDL/HDL Ratio 1.2 {ratio_units} (Normal) Range: 0.0-3.2 VLDL Cholesterol Cesar 17 mg/dL (Normal) Range: 5-40 Cholesterol, Total 152 mg/dL (Normal) Range: 100-199 Triglycerides 87 mg/dL (Normal) Range: 0-149 82-Kaw-487112:12 Protein Total, Qn, 24-Hr Comments: PERFORMED BY: [facility] [id number] Urine Prot,24hr calculated 1172.0 {mg/24_hr} Range: 30.0-150.0 (Abnormal) Protein,Total,Urine 58.6 mg/dL (Abnormal) Range: 0.0-15.0 TSH 1.280 {uIU/mL} Comments: PERFORMED BY: LabCoRobert Wood Johnson University HospitalZranvt0868 [facility] [id number] 1:12 (Normal) Range: 0.450-4.500 :58 HgA1C , Office (74533) HgA1C , Office 6.0 % (Normal) Range: 4.6 - 7.1 :58 Blood Glucose , Office (23930) Blood Glucose , Office 113 (Normal) :03 CBC With Differential/Platelet Comments: PATIENT WAS FASTINGPERFORMED BY: LabCoRobert Wood Johnson University HospitalVcffao7135 [facility] [id number] Baso (Absolute) 0.0 {x10E3/uL} (Normal) Range: 0.0-0.2 [...] 11.7-15.0 WBC 3.2 {x10E3/uL} (Abnormal) Range: 4.0-10.5 1-Fhd-003553:03 Comp. Metabolic Panel (14) Comments: PATIENT WAS FASTINGPERFORMED BY: LabCoRobert Wood Johnson University HospitalYvpusl6764 [facility] [id number] A/G Ratio 2.0 (Normal) Range: 1.1-2.5 Albumin, [...] Glucose, Serum 116 mg/dL (Abnormal) Range: 65-99 1-Vat-261421:03 Lipid Panel With LDL/HDL Comments: PATIENT WAS FASTINGPERFORMED BY: EVE FABPulous70 [facility] [id number] Ratio Cholesterol, Total 167 mg/dL (Normal) Range: [...] ng/mL (Normal) Comments: PATIENT WAS FASTINGPERFORMED BY: [employer] [facility] [id number] :03 Range: 32.0-100.0 Comments: Recent studies consider the lower limit of 32.0 ng/mL to be athreshold for optimal health.Otf HAYES. J Nutr. 2004;135(2):317-22. 33-Iwd-104284:32 Urinalysis, Office (70938) UA - BILIRUBIN Negative (Normal) UA - BLOOD Hemolyzed Trace (Normal) UA - GLUCOSE Negative (Normal) UA - KETONES Negative mg/dL (Normal) UA - LEUKOCYTE ESTERASE Negative (Normal) UA - NITRITE Negative (Normal) UA - PH 6.5 (Normal) UA - PROTEIN 300 mg/dL (Normal) UA - SPECIFIC GRAVITY 1.020 (Normal) URINE UROBILINGN JATINDER TIMED 2 mg/dL (Normal) 0-Kwp-301018:19 URINE SETH CULTURE-JATINDER COL Comments: PATIENT NOT FASTINGClinical Information: SRC:UR ADD [id number] PERFORMED BY: BuldumBuldum.com70 [facility] [id number] COUNT (90405) Result 1 ECV (Normal) Comments: Escherichia coli, [...] report (Normal) Culture,Comprehensiv e 09-Jan-20098:17 Urinalysis, Office (66372) UA - BILIRUBIN Negative (Normal) UA - BLOOD Hemolyzed Large (Normal) UA - GLUCOSE Negative (Normal) UA - KETONES Negative mg/dL (Normal) UA - LEUKOCYTE ESTERASE Moderate (Normal) UA - NITRITE Negative (Normal) UA - PH 7.0 (Normal) UA - PROTEIN 300 mg/dL (Normal) UA - SPECIFIC GRAVITY 1.020 (Normal) URINE UROBILINGN JATINDER TIMED 2 mg/dL (Normal) 6-Oci-294378:05 Comp. Metabolic Panel (14) Comments: PATIENT WAS FASTINGPERFORMED BY: LabCo Mewpjx4788 [facility] [id number] A/G Ratio 1.7 (Normal) Range: 1.1-2.5 Albumin, [...] Panel (7) Comments: PATIENT WAS FASTINGPERFORMED BY: ESC CompanyEllis Fischel [facility] Center [id number] Bilirubin, Direct 0.12 mg/dL (Normal) Range: 0.00-0.40 :05 Lipid Panel With LDL/HDL Comments: PATIENT WAS FASTINGPERFORMED BY: Rebelle Bridal [facility] [id number] Ratio Cholesterol, Total 170 mg/dL (Normal) Range: 100-199 HDL Cholesterol 63 mg/dL (Normal) Comments: According to ATP-III Guidelines, HDL-C >59 mg/dL is considered anegative risk factor for CHD. LDL Cholesterol Calc 91 mg/dL (Normal) Range: 0-99 LDL/HDL Ratio 1.4 {ratio_units} Range: 0.0-3.2 (Normal) Triglycerides 80 mg/dL (Normal) Range: 0-149 VLDL Cholesterol Cesar 16 mg/dL (Normal) Range: - Phosphorus, Serum 4.1 mg/dL (Normal) Comments: PATIENT WAS FASTINGPERFORMED BY: ISVS6370 [facility] [id number] :05 Range: 2.5-4.5 PTH, Intact 19 pg/mL (Normal) Comments: PATIENT WAS FASTINGPERFORMED BY: LabCo Qoobzi4948 [facility] [id number] :05 Range: 15-65 Vitamin D, 25-Hydroxy 38.9 ng/mL (Normal) Comments: PATIENT WAS FASTINGPERFORMED BY: [facility]Jeff[facility] Dvaqvz8764 [facility] [id number] :05 Range: 32.0-100.0 Comments: Recent studies consider the lower limit of 32.0 ng/mL to be athreshold for optimal health.Otf HAYES. J Nutr. 2004;135(2):317-22. :40 HgA1C , Office (56157) HgA1C , Office 6.0 % (Normal) Range: 4.6 - 7.1 :40 Blood Glucose , Office (07836) Blood Glucose , Office 109 (Normal) :42 CBC With Differential/Platelet Comments: PATIENT WAS FASTINGPERFORMED BY: LabCorewell [facility]6370 [facility] [id number] Baso (Absolute) 0.0 {x10E3/uL} (Normal) Range: 0.0-0.2 [...] 11.7-15.0 WBC 4.2 {x10E3/uL} (Normal) Range: 4.0-10.5 26-Pai-692336:42 Comp. Metabolic Panel (14) Comments: PATIENT WAS FASTINGPERFORMED BY: LabCoRobert Wood Johnson University HospitalTsdvrj1303 [facility] [id number] A/G Ratio 1.6 (Normal) Range: 1.1-2.5 Albumin, [...] Sodium, Serum 140 mmol/L (Normal) Range: 135-145 8-Swa-353128:09 FECAL OCCULT HGB ASSAY, QUAL, 1-3 SIMULTANEOUS DETERMINATIONS (25605) FECAL OCCULT HGB ASSAY, QUAL, 1-3 SIMULTANEOU neg (Normal) :42 Microscopic Examination Comments: PATIENT WAS FASTINGPERFORMED BY: CytoValeAtrium Health [facility] [id number] Bacteria None seen (Normal) Cast Type Hyaline casts (Normal) Casts Present {/lpf} (Abnormal) Epithelial Cells (non renal) 0-10 {/hpf} (Normal) Range: 0 - 10 Mucus Threads Present (Normal) RBC 0-3 {/hpf} (Normal) Range: 0 - 3 WBC 0-5 {/hpf} (Normal) Range: 0 - 5 :42 URINALYSIS W/O MICRO (91092) Comments: PATIENT WAS FASTINGPERFORMED BY: [facility] [id number] Appearance Clear (Normal) Bilirubin Negative (Normal) Glucose Negative (Normal) Ketones Negative (Normal) Microscopic Examination See below: (Normal) Nitrite, Urine Negative (Normal) Occult Blood Negative (Normal) pH 5.0 (Normal) Range: 5.0-7.5 Protein 1+ (Abnormal) Specific [place] 1.013 (Normal) Range: 1.005-1.030 Urine-Color Yellow (Normal) Urobilinogen,Semi-Qn 0.2 mg/dL (Normal) Range: 0.0-1.9 WBC Esterase 1+ (Abnormal) :42 MICROALBUMIN: CREATININE RATIO Comments: PATIENT WAS FASTINGPERFORMED BY: [facility] [id number] ([id number]) AND (25860) Creatinine, Urine 76.1 mg/dL (Normal) Range: 15.0-278.0 Microalb/Creat Ratio 292.1 {ug/mg_creat} (Abnormal) Range: 0.0-30.0 Microalbumin, Urine 222.3 ug/mL (Abnormal) Range: 0.0-17.0 :42 CBC WITH MANUAL DIFF (19579) Comments: PATIENT WAS FASTINGClinical Information: ADD DRAW FEE [id number] ADD J 52978 PERFORMED BY: EVE FABPulous70 [facility] [id number] Baso (Absolute) 0.0 {x10E3/uL} (Normal) Range: 0.0-0.2 [...] PANEL, COMPREHENSIVE Comments: PATIENT WAS FASTINGPERFORMED BY: BuldumBuldum.com70 [facility] [id number] (53714) A/G Ratio 1.8 (Normal) Range: 1.1-2.5 Albumin, [...] (Normal) Range: 135-145 :23 HgA1C , Office (45579) HgA1C , Office 6.0 % (Normal) Range: 4.6 - 7.1 3-Xgp-550302:23 Blood Glucose , Office (35521) Blood Glucose , Office 103 (Normal) :38 CBC WITH MANUAL DIFF (06975) Comments: PATIENT WAS FASTINGClinical Information: ADD DRAW FEE [id number] ADD J 44618 PERFORMED BY: LabCoRobert Wood Johnson University HospitalBrikij9877 [facility] [id number] Baso (Absolute) 0.0 {x10E3/uL} (Normal) Range: 0.0-0.2 [...] 11.7-15.0 WBC 4.0 {x10E3/uL} (Normal) Range: 4.0-10.5 81-Iiw-995893:38 METABOLIC PANEL, COMPREHENSIVE Comments: PATIENT WAS FASTINGPERFORMED BY: LabCoRobert Wood Johnson University HospitalMhwupg8438 [facility] [id number] (29995) A/G Ratio 1.8 (Normal) Range: 1.1-2.5 Albumin, [...] Sodium, Serum 142 mmol/L (Normal) Range: 135-145 83-Rmy-808557:38 HEPATIC FUNCTION PANEL Comments: PATIENT WAS FASTINGPERFORMED BY: [employer] [facility] Dnzeys3563 [facility] [id number] (76252) Bilirubin, Direct 0.08 mg/dL (Normal) Range: 0.00-0.40 47-Mll-409637:38 LIPID PANEL (34975) Comments: PATIENT WAS FASTINGPERFORMED BY: [employer] [facility] Hywqri7701 [facility] [id number] Cholesterol, Total 200 mg/dL (Abnormal) Range: 100-199 [...] (Normal) Range: 5-40 :36 HgA1C , Office (50508) HgA1C , Office 6.1 % (Normal) Range: 4.6 - 7.1 :36 Blood Glucose , Office (60893) Blood Glucose , Office 98 (Normal) :33 CBC With Differential/Platelet Comments: PATIENT WAS FASTINGClinical Information: SRC:UR PERFORMED BY: EVE [facility]6370 [facility] [id number] Baso (Absolute) 0.0 {x10E3/uL} (Normal) Range: 0.0-0.2 [...] 11.7-15.0 WBC 4.8 {x10E3/uL} (Normal) Range: 4.0-10.5 40-Nhw-689903:33 Comp. Metabolic Panel (14) Comments: PATIENT WAS FASTINGPERFORMED BY: LabCoRobert Wood Johnson University HospitalYkoput3265 [facility] [id number] A/G Ratio 1.6 (Normal) Range: 1.1-2.5 Albumin, [...] Serum 92 mg/dL (Normal) Range: 65-99 If -Grenadian 57 mL/min/1.73 Comments: Note: Persistent reduction for [...] With LDL/HDL Comments: PATIENT WAS FASTINGPERFORMED BY: CyberX6370 [facility] [id number] Ratio Cholesterol, Total 174 mg/dL (Normal) Range: [...] Urine Culture,Comprehensive Comments: PATIENT WAS FASTINGPERFORMED BY: [employer] LabApani Networks6370 [facility] [id number] Antimicrobial MIHEAD (Normal) Comments: S = Susceptible; [...] Enterococcus. (Normal) Urine Final report (Normal) Culture,Comprehensive 8-Mva-939007:10 HgA1C , Office (27623) HgA1C , Office 5.9 % (Normal) Range: [...] mL (Normal) URINE PROTEIN 20.0 mg/dL (Abnormal) 09-Mjy-444384:17 Urine Culture,Comprehensive Comments: Clinical Information: SRC:UR PERFORMED BY: [facility]6370 [facility] [id number] Result 1 CNSNSS (Normal) Comments: Coagulase negative Staphylococcus species, not Staphylococcussaprophyticus.600 Colonies/mLSusceptibility or resistance of staphylococci to oxacillin predictssusceptibility or resistance to (a) other be kk-ijknvfddr-zcxpjrxkxiqtahsot such as cloxacillin and dicloxacillin, (b) combinationsof a penicillin and a beta-lactamase inhibitor, and(c) anti- staphylococcal cephalosporins. Routine testing of otherp enicillins, beta-lactam/beta-lactamase inhibitor combinations,cephems, and carbapenems is not advised by the CLSI Standards(I950-T92, 2005). S = Susceptible; I = Intermediate; R = Resistant * P = Positive; N = Negative MICS are expressed in micrograms per mL Antibiotic RSLT#1 RSLT#2 RSLT#3 RSLT#4Ciprofloxacin RGentami kristian SLevofloxacin RNitrofurantoin SOxacillin SPenicillin RRifampin STrimethoprim/Sulfa SVancomycin S Urine Final report Culture,Comprehensi (Normal) ve :53 Metabolic Panel, Basic (43541) Comments: PATIENT NOT FASTINGClinical Information: ADD DRAW FEE [id number] ADD J 99471 PERFORMED BY: [facility] Rvpkgs1786 [facility] [id number] BUN 39 mg/dL (Abnormal) Range: 5-26 BUN/Creatinine Ratio 33 (Abnormal) Range: 8-27 Calcium, Serum 9.8 mg/dL (Normal) Range: 8.5-10.6 Carbon Dioxide, Total 22 mmol/L (Normal) Range: 20-32 Chloride, Serum 103 mmol/L (Normal) Range: 97-108 Creatinine, Serum 1.20 mg/dL (Abnormal) Range: 0.57-1.00 Glom Filt Rate, Est 45 mL/min/1.73 Range: 60-128 (Abnormal) Glucose, Serum 101 mg/dL (Abnormal) Range: 65-99 If -Grenadian 55 mL/min/1.73 Range: 60-128 (Abnormal) Comments: Note: Persistent reduction for 3 months or more in an eGFR<60 mL/min/1.73 m2 defines CKD. Patients with eGFR values>/=60 mL/min/1.73 m2 may also have CKD if evidence of persistentproteinuria is present. Additional information may be found atwww.kdoqi.org. Potassium, Serum 5.1 mmol/L (Normal) Range: 3.5-5.2 Sodium, Serum 139 mmol/L (Normal) Range: 135-145 :09 HgA1C , Office (97574) HgA1C , Office 6.1 % (Normal) Range: 4.6 - 7.1 :09 Blood Glucose , Office (01585) Blood Glucose , Office 163 (Normal) :37 SPINE,LUMBAR (ROUTINE) Radiology Report See Note (Normal) Comments: Exam Number: [id number] MRI LUMBAR SPINE CLINICAL STATEMENTLow back pain [...] onboth sides. Reported By: MODESTA COPE M.D. 31-Gph-622906:00 [facility] DIGITAL & CAD Radiology Report See Note (Normal) Comments: Exam Number: [id number] MAMMOGRAM, BILATERAL SCREENING DIGITAL AND CAD HISTORYRoutine screening. Full field digital images were obtained in mediolateral oblique andcraniocaudal projections. CAD images w ere reviewed. The current study [facility] A small metal marker is placed [...] mammograms werealso examined with computer-aided detection software (Gertrude, RainKing, fishfishme.). Reported By: DONNA OJEDA M.D. :59 DEXA BONE DENSITY STUDY () Radiology Report See Note (Normal) Comments: Exam Number: [id number] BONE DENSITOMETRY HISTORYPost menopausal. TECHNIQUE Bone densitometry [...] Report See Note (Normal) Comments: Exam Number: [id number] [place] LUMBAR SPINE AP, lateral, both [...] By: MAIRA GARZA M.D. :19 Microalb/Creat Ratio, [facility] Comments: PATIENT NOT FASTINGPERFORMED BY: EVE LabCoRobert Wood Johnson University HospitalDchquu9444 [facility] [id number] Creatinine, Urine 46.8 mg/dL (Normal) Microalb/Creat Ratio 712.8 {ug/mg_creat} (Abnormal) Range: 0.0-30.0 Microalbum.,U,Random 333.6 ug/mL (Abnormal) Range: 0.0-17.0 :13 Creatinine Clearance Comments: PATIENT NOT FASTINGClinical Information: HT-5'4'' WT-184 PERFORMED BY: [employer] Dheaij0003 [facility] [id number] Creatinine Clearance 40 mL/min (Abnormal) Range: 88-128 Comments: The above range is based on 1.73 square meter average body surfacearea. Creatinine, Serum 1.30 mg/dL (Normal) Range: 0.50-1.50 Creatinine, Ur 24hr 754.8 {mg/24_hr} Range: 800.0-1800.0 (Abnormal) Creatinine, Urine 44.4 mg/dL (Normal) Glom Filt Rate, Est 41 mL/min (Abnormal) Range: 60-128 If -Grenadian 50 mL/min (Abnormal) Range: 60-128 Comments: Note: Persistent reduction for 3 months or more in an eGFR<60 mL/min/1.73 m2 defines CKD. Patients with eGFR values>/=60 mL/min/1.73 m2 may also have CKD if evidence of persistentproteinuria is present. .Additional information may be found at www.kdoqi.org. :13 Protein Total, Qn, 24-Hr Comments: PATIENT NOT FASTINGPERFORMED BY: Social CollectiveRobert Wood Johnson University HospitalOujffv2245 [facility] [id number] Urine Protein,Total,Urine 49.0 mg/dL (Abnormal) Range: 0.0-15.0 Prt, 24hr calculated 833.0 {mg/24_hr} (Abnormal) Range: 30.0-150.0 73-Crm-230339:00 CBCD,SMEAR DIFF CELLS COUNTED 100 (Normal) EOS [...] D BILI 0.06 mg/dL (Normal) Range: 0.00-0.30 26-Rfr-973535:00 LIPID CHOL 175 mg/dL (Normal) Comments: <200 [...] mg/dL VLDL 12 mg/dL (Normal) Range: 5-40 14-Wjf-262898:00 TSH 0.84 {uIU/mL} (Normal) Range: 0.34-4.82 Plan [...] uncertain behavior of skin Planned Observations PARATHORMONE (41529)Indication: Chronic kidney disease, stage 3 On: :59 Request Comments: fax to [phone] MICROALBUMIN: CREATININE RATIO (18469) AND (59187)Indication: Chronic kidney disease, stage 3 On: :55 Request Comments: fax to [phone] RENAL FUNCTION PANEL (99167)Indication: Chronic kidney disease, stage 3 On: :54 Request Comments: fax to [phone] MAGNESIUM (89553)Indication: Chronic kidney disease, stage 3 On: :54 Request Comments: fax to [phone] Parathyroid Hormone-related Peptide (PTH-rP) (99932)Indication: Chronic kidney disease, stage 3 On: :54 Request Comments: fax to [phone] Vitamin D Hydroxy (70628)Indication: Vitamin D deficiency On: :25 Request URINALYSIS, W/ MICRO (44214)Indication: Chronic kidney disease, stage 3 On: :25 Request LIPID PANEL (59004)Indication: Mixed hyperlipidemia On: :25 Request CBC W/AUTO DIFF WBC (98429)Indication: Chronic kidney disease, stage 3 On: : Request METABOLIC PANEL, COMPREHENSIVE (61891)Indication: Chronic kidney disease, stage 3 On: :25 Request HGB A1C (60444)Indication: Diabetes mellitus type II, controlled On: :24 Request Parathyroid Hormone-related Peptide (PTH-rP) (70177)Indication: Vitamin D deficiency On: 0-Fab-644351:43 Request Comments: send results to Dr. Santana fax: [phone] VITAMIN D, 1, 25-DIHYDROXY (74498)Indication: Vitamin D deficiency On: 1-Mce-996557:42 Request Comments: send results to Dr. Santana fax: [phone] Clostridium difficile Toxin A+B, EIA (93500)Indication: Chronic diarrhea On: 3-Hmw-606657:36 Request Vitamin D Hydroxy (25267)Indication: Osteopenia On: 5-Qhb-941542:20 Request CBC W/AUTO DIFF WBC (32498)Indication: Hypertension, benign On: 4-Vgk-050630:16 Request CALCIFEDIOL (64929)Indication: Chronic kidney disease, stage 3 On: :04 Request Renal function Panel (86923)Indication: Chronic kidney disease, stage 3 On: :04 Request Magnesium (84238)Indication: Chronic kidney disease, stage 3 On: :04 Request MICROALBUMIN: CREATININE RATIO (56599) AND (01801)Indication: Chronic kidney disease, stage 3 On: 03-Aug-20169:04 Request Parathyroid Hormone-related Peptide (PTH-rP) (80384)Indication: Chronic kidney disease, stage 3 On: 03-Aug-20169:04 Request T4, FREE (THYROXINE) (94266)Indication: Cold feeling On: 03-Aug-20168:31 Request TSH (70163)Indication: Cold feeling On: 03-Aug-20168:31 Request PARATHORMONE (94381)Indication: Chronic kidney disease, stage 3 On: 08-Kij-29322:18 Request Comments: copy to Dr. Santana [phone] CALCIFIDIOL (75672) VIT D 25Indication: Chronic kidney disease, stage 3 On: :16 Request Comments: copy to Dr. Santana [phone] MAGNESIUM (60507)Indication: Chronic kidney disease, stage 3 On: 68-Xrs-44836:15 Request Comments: copy to Dr. Santana [phone] PROTEIN/CREAT RATIO, URINE (87651)Indication: Chronic kidney disease, stage 3 On: :15 Request Comments: copy to Dr. Santana [phone] LIPID PANEL (40533)Indication: Mixed hyperlipidemia On: :21 Request CBC with auto diff (51946)Indication: Diabetes mellitus type II, controlled On: 14-Hjr-877274:20 Request METABOLIC PANEL, COMPREHENSIVE (96810)Indication: Diabetes mellitus type II, controlled On: 29-Ohh-387257:20 Request HGB A1C (42417)Indication: Diabetes mellitus type II, controlled On: 95-Eni-314350:10 Request Vitamin D Hydroxy (68307)Indication: Osteopenia On: :08 Request TSH (THYROID STIMULATING HORMONE) (31469)Indication: Depression On: :06 Request LIPID PANEL (72412)Indication: Other and unspecified hyperlipidemia On: 40-Uhs-076120:06 Request CBC with auto diff (30952)Indication: Diabetes mellitus type II, controlled On: 07-Bwd-905258:06 Request METABOLIC PANEL, COMPREHENSIVE (86562)Indication: Diabetes mellitus type II, controlled On: 69-Plv-634154:06 Request CREATININE CLEARANCE (66142)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 On: 3-Mjr-994167:38 Request Total Protein,24 Hour Urine (26170)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 On: 7-Ods-083593:38 Request CBC W/AUTO DIFF WBC (26923)Indication: Diabetes mellitus type II, controlled On: 10-Evu-962690:11 Request HgA1C , Office (95403)Indication: Diabetes mellitus type II, controlled On: 90-Wey-883559:23 Request CULTURE, SPUTUM (16386)Indication: Cough On: 55-Obp-142133:47 Request HEPATIC FUNCTION PANEL (26678)Indication: Elevated LFTs On: 97-Alu-69644:24 Request CREATININE CLEARANCE (98443)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 On: 52-Zzg-87770:33 Request 24 hour urine for Protein (58109)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 On: :33 Request CBC WITH MANUAL DIFF (81378)Indication: Diabetes mellitus type II, controlled On: 09-Rub-530750:29 Request METABOLIC PANEL, COMPREHENSIVE (03796)Indication: Diabetes mellitus type II, controlled On: :29 Request LIPID PANEL (79656)Indication: Mixed hyperlipidemia On: :29 Request CREATININE CLEARANCE (24862)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 On: 9-Ywp-307922:45 Request 24 hour urine for Protein (62229)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 On: 1-Fnd-488892:45 Request CREATININE CLEARANCE (71712)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 On: 60-Iye-137370:57 Request 24 hour urine for Protein (06643)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 On: 99-Abf-821083:57 Request METABOLIC PANEL, COMPREHENSIVE (37688)Indication: Hypertension, benign On: :32 Request LIPID PANEL (89503)Indication: Mixed hyperlipidemia On: :32 Request C-REACTIVE PROTEIN (13940)Indication: Fatigue On: :24 Request SED RATE ERYTHROCYTE (37383)Indication: Headache On: :24 Request VITAMIN B-12 (CYANOCOBALAMIN) (63068)Indication: Fatigue On: :24 Request LIPID PANEL (88009)Indication: Mixed hyperlipidemia On: :41 Request CBC WITH MANUAL DIFF (87235)Indication: Hypertension, benign On: 1-Guf-992718:41 Request METABOLIC PANEL, COMPREHENSIVE (79890)Indication: Hypertension, benign On: 8-Jqd-794121:41 Request CREATININE CLEARANCE (35810)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 On: 3-Hnn-756142:34 Request 24 hour urine for Protein (15344)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 On: 8-Qym-673745:34 Request LIPID PANEL (45518)Indication: Mixed hyperlipidemia On: :22 Request HEPATIC FUNCTION PANEL (96341)Indication: Mixed hyperlipidemia On: :22 Request Vitamin D Hydroxy (69504)Indication: Hypercalcemia On: :22 Request PHOSPHORUS (64876)Indication: Hypercalcemia On: 8-Yrw-150442:22 Request PARATHORMONE (82073)Indication: Hypercalcemia On: 0-Rpq-464729:22 Request METABOLIC PANEL, COMPREHENSIVE (49848)Indication: Hypercalcemia On: 8-Zgm-911715:22 Request CBC WITH MANUAL DIFF (96443)Indication: fsgs On: :58 Request LIPID PANEL (15438)Indication: Mixed hyperlipidemia On: :58 Request METABOLIC PANEL, COMPREHENSIVE (85617)Indication: Hypertension, benign On: :58 Request Blood Glucose , Office (49991)Indication: Diabetes mellitus type II, controlled On: 2-Aoq-459416:10 Request TSH (65691)Indication: Diabetes mellitus type II, controlled On: 48-Hvj-809211:51 Request METABOLIC PANEL, COMPREHENSIVE (91970)Indication: Diabetes mellitus type II, controlled On: 42-Jqs-002485:51 Request CBC WITH MANUAL DIFF (80148)Indication: Diabetes mellitus type II, controlled On: 99-Hsn-779015:51 Request MICROALBUMIN: CREATININE RATIO (83347) AND (55356)Indication: Diabetes mellitus type II, controlled On: 53-Bve-976956:51 Request HEPATIC FUNCTION PANEL (09453)Indication: Other and unspecified hyperlipidemia On: 13-Brv-199832:51 Request LIPID PANEL (96499)Indication: Other and unspecified hyperlipidemia On: 53-Bxg-020928:51 Request HgA1C , Office (85992)Indication: Diabetes mellitus type II, controlled On: 71-Heg-484107:37 Request Blood Glucose , Office (44619)Indication: Diabetes mellitus type II, controlled On: 64-Rxc-782849:37 Request Planned Encounters Medical; [facility] 3 Month FU - On: 22-Mar-2018 11:00 [facility] Fast DO, Chaparrita A Fast DO, Chaparrita A Planned Procedures DRAIN/INJECT MAJOR JOINT OR BURSA On: 07-Feb-2018 Intent ()By: Keri Singh MD Comments: lot no [id number] exp date 2017-12-26 DRAIN/INJECT MAJOR JOINT OR BURSA On: 31-Jan-2018 Intent ()By: Keri Singh MD Comments: Lot#[id number]:1-96-01Zhzmj:intra articular Site given:left knee Given By: Dr. Singh ABN signed DRAIN/INJECT MAJOR JOINT OR BURSA On: 24-Jan-2018 Intent (91668)By: Keri Singh MD Comments: Lot#[id number]: 3-97-84Xtwbe:intra artciular Site given:left knee Given By: Dr. Singh ABN signed Euflexxa Echo CompleteBy: Fast DO, Chaparrita A On: 16-Dec-2017 Intent Fast DO, Chaparrita A Flu Vaccine (Quadrivalent) 65908Ja: On: 16-Dec-2017 Intent Fast DO, Chaparrita A Fast DO, Chaparrita A Comments: Lot: #[id number]: 10/01/18Site: L dltd, IMDose prefilled syringegiven by: CManccurtVIS reviewed and ABN signed Kenalog Injection, 10 mgm On: 03-Oct-2017 Intent (J3301)By: Keri Singh MD Comments: lot: [id number]: 11/20site/route: L knee Cartoid DopplerBy: Fast DO, Chaparrita A On: 12-Sep-2017 Intent Fast DO, Chaparrita A Comments: november DIGITAL TOMOSYNTHESIS OF On: 12-Sep-2017 Intent BREAST (33861)By: Fast DO Chaparrita A Comments: due november 02 Fast DO, Chaparrita A Kenalog Injection, 10 mgm On: 06-Jun-2017 Intent (J3301)By: Keri Singh MD Comments: bupivacacine 0.5% [id number] exp 09-20 kenalog 40 mg injected in. [id number] 07-21 MRI OF BRAIN WITH AND WITHOUT On: 06-Jun-2017 Intent CONTRAST (55930)By: Fast DO, Chaparrita A Fast DO, Chaparrita A ELECTROCARDIOGRAM, COMPLETE (ECG) On: 06-Jun-2017 Intent (91350)By: Fast DO, Chaparrita A Fast Comments: ekg showed normal sinus rhythym, normal axis, no acute st/t wave changes DO, Chaparrita A INFUSION, NORMAL SALINE SOLUTION , On: 10-May-2017 Intent 1000 CC (Special Coverage Comments: 2 liters total Instructions Apply. See MCM: 2049) (J7030)By: Fast DO, Chaparrita A Fast DO, Chaparrita A INFUSION, NORMAL SALINE SOLUTION , On: 10-May-2017 Intent 1000 CC (Special Coverage Comments: lot:[id number]:IV left anticub dose:1000ml given by:eliazar Araya, ANDREA Instructions Apply. See MCM: 2048) (J7030)By: Chaparrita Albrecht DO, DO, Debra A Radiology - Chest- PA and LatBy: On: 05-May-2017 Intent Keri Singh MD Aerosol Treatment (91842)By: On: 05-May-2017 Intent Keri Singh MD Radiology - ChestBy: Francisco MANN, On: 05-May-2017 Intent Keri Alonzo Comments: call wet read DRAIN/INJECT MAJOR JOINT OR BURSA On: 28-Feb-2017 Intent ()By: Keri Singh MD Comments: 1 cc Kenelog #[id number] cc Marcaine #[id number] Kenalog Injection, 10 mgm On: 28-Feb-2017 Intent (J3301)By: Keri Singh MD ELECTROCARDIOGRAM, COMPLETE (ECG) On: 10-Jan-2017 Intent (35151)By: Chaparrita Albrecht DO Comments: ekg showed normal sinus rhythym, normal axis, no acute st/t wave changes Chaparrita WOLFF Flu Vaccine (Quadrivalent) 93203Lp: On: 27-Dec-2016 Intent SHONDA Andrade DRAIN/INJECT MAJOR JOINT OR BURSA On: 20-Aug-2016 Intent ()By: Keri Singh MD DRAIN/INJECT MAJOR JOINT OR BURSA On: 13-Aug-2016 Intent ()By: SHONDA Andrade Comments: lot: [id number]:3-05-2425lcf:intra articular dose:2ml given by:Dr. Francisco Araya, LEAN COACH injection #3 DOPPLER ULTRASOUND OF RIGHT CAROTID On: 10-Aug-2016 Intent ARTERY (59275)By: Chaparrita Albrecht DO Comments: end of october Chaparrita Albrecht DO DEXA SCAN AXIAL SKELETON (58861)By: On: 10-Aug-2016 Intent Chaparrita Albrecht DO, DO, Debra A Comments: end october SCREENING DIGITAL TOMOSYNTHESIS OF On: 10-Aug-2016 Intent BREAST (30003)By: Fast DO, Chaparrita A Comments: end october Fast DO, Chaparrita A DRAIN/INJECT MAJOR JOINT OR BURSA On: 06-Aug-2016 Intent ()By: Keri Singh MD DRAIN/INJECT INTERMED JOINT/BURSA On: 06-Aug-2016 Intent ()By: SHONDA Andrade Comments: lot:[id number]:8-11-7348pju:left knee dose:2mlgiven by:Dr. Francisco HUMPHREY signedER, LEAN COACH injection number 2 Venous Doppler - LeftBy: Fast DO, On: 03-Aug-2016 Intent Chaparrita A Fast DO, Chaparrita A Comments: This is set up for August 05 at 11am- spoke with Rina in cv. DRAIN/INJECT INTERMED JOINT/BURSA On: 30-Jul-2016 Intent ()By: Keri Singh MD Comments: lot:[id number]:6-16-1969vaw:intra articular left knee dose: 2ml given by: Dr. Singh ABN signedER, LEAN COACH injection #1 Radiology - Knee - LeftBy: Fast DO, On: 26-May-2016 Intent Chaparrita A Fast DO, Chaparrita A Flu Vaccine (Quadrivalent) 52919Ph: On: 27-Jan-2016 Intent Fast DO, Chaparrita A Fast DO, Chaparrita A Comments: Lot #:[id number] date:10/01/16mount given:0.5mlRoute: IMSite given: left deltoidGiven by: CARMELINA Hook ADMINISTRATION OF INFLUENZA VIRUS On: 27-Jan-2016 Intent VACCINE (G0008)By: Fast DO, Chaparrita A Fast DO, Chaparrita A DOPPLER ULTRASOUND OF RIGHT CAROTID On: 22-Oct-2015 Intent ARTERY (54672)By: Fast DO, Chaparrita A Fast DO, Chaparrita A MAMMOGRAM, SCREENING, BOTH BREAST On: 22-Oct-2015 Intent (09250)By: Fast DO, Chaparrita A Fast DO, Chaparrita A Ultrasound - RenalBy: Fast DO, On: 14-Jul-2015 Intent Chaparrita A Fast DO, Chaparrita A Radiology - Knee - Left - Weight On: 11-Mar-2015 Intent BearingBy: Fast DO, Chaparrita A Fast DO, Chaparrita A Radiology - Knee - Right - Weight On: 11-Mar-2015 Intent BearingBy: Case Albrecht DOa A Ambrocio WOLFF, Chaparrita A Flu Vaccine (Quadrivalent) 10976Lf: On: 11-Feb-2015 Intent Case Albrecht DOa A Ambrocio DO, Chaparrita A EKG (89949)By: Chaparrita Albrecht DO On: 05-Nov-2014 Intent Ambrocio WOLFF Chaparrita A Comments: ekg showed normal sinus rhythym, normal axis, no acute st/t wave changes left axis DRAIN/INJECT SMALL JOINT OR BURSA On: 07-Oct-2014 Intent ()By: Keri Singh MD MAMMOGRAM, SCREENING, BOTH BREAST On: 02-Aug-2014 Intent (87006)By: Chaparrita Albrecht DO Comments: meera Chaparrita WOLFF A Cartoid DopplerBy: Chaparrita Albrecht DO A On: 02-Aug-2014 Intent Ambrocio WOLFF Chaparrita A DEXA SCAN AXIAL SKELETON (80410)By: On: 09-Apr-2014 Intent Chaparrita Albrecht DO A Ambrocio WOLFF, Chaparrita A Prevnar 13 (00322)By: Ambrocio WOLFF, On: 30-Jan-2014 Intent Chaparrita Albrecht DO, Chaparrita A Comments: Lot:[id number]:05/20Dose:0.5Route:imSite:l armGiven By:Jarred signed FLU VAC, SPLIT, >3 YEARS, INTRAMUSC On: 16-Jan-2014 Intent (34124)By: Chaparrita Albrecht DO Comments: Lot #:[id number] date:12/2015Amount given:0.5mlRoute: IMSite given: left deltoidGiven by: CARMELINA Hook DO Chaparrita A ADMINISTRATION OF INFLUENZA VIRUS On: 16-Jan-2014 Intent VACCINE (G0008)By: Chaparrita Albrecht DO, DO, Chaparrita A EKG ([id number])By: Chaparrita Albrecht DO On: 17-Oct-2013 Intent Ambrocio WOLFF Chaparrita A Comments: ekg showed normal sinus rhythym, left axis, no acute st/t wave changes Radiology - Chest- PA and LatBy: On: 17-Sep-2013 Intent Chaparrita Albrecht DO A Ambrocio DO, Chaparrita A Aerosol Treatment ([id number])By: Ambrocio On: 17-Sep-2013 Intent DO, Chaparrita A Fast DO, Chaparrita A MRI - BrainBy: Fast DO, Chaparrita A On: 22-Jul-2013 Intent Fast DO, Chaparrita A Cartoid DopplerBy: Fast DO, Chaparrita A On: 20-Jul-2013 Intent Fast DO, Chaparrita A MAMMOGRAM, SCREENING, BOTH BREASTS On: 20-Jul-2013 Intent ([id number])By: Case Albrecht DOa A Fast DO, Chaparrita A Eprescribed prescriptions On: 20-Jul-2013 Intent ([id number])By: Chaparrita Albrecht DO Fast DO, Chaparrita A Eprescribed prescriptions On: 02-Feb-2013 Intent ([id number])By: Марина Concepcion FLU VAC, SPLIT, >3 YEARS, INTRAMUSC On: 03-Jan-2013 Intent ([id number])By: Марина Concepcion Comments: Lot #:[id number] date:mount given:0.5mlRoute: IMSite given: L dltdVIS and ABN signedGiven by: CARMELINA Hook ADMINISTRATION OF INFLUENZA VIRUS On: 03-Jan-2013 Intent VACCINE (G0008)By: Марина Concepcion CT - Abdomen & Pelvis (IV Contrast On: 17-Oct-2012 Intent Needed)By: Chaparrita Albrecht DO Comments: patient will be calling to set up DO, Chaparrita A Eprescribed prescriptions On: 10-Oct-2012 Intent ([id number])By: Марина Concepcion Ear Irrigation ([id number])By: [place] On: 13-Jun-2012 Intent Ivy Comments: Ear Irrigation performed on: right earAmount/color removed cerumen: light brown, small amount removedOUtcome:Pt toleratedUsed wax curettes Wax Cur[place]tes ([id number])By: [place] On: 13-Jun-2012 Intent Ivy PNEUM VAC ADLT/IMUMNOSPR, SBC/INTRM On: 13-Jun-2012 Intent ([id number])By: Chaparrita Albrecht DO Comments: Lot:[id number]:09/09/13Dose:0.5mLRoute:IMSite:L armGiven By:BHUMI signed DO, Chaparrita A EKG ([id number])By: Chaparrita Albrecht DO On: 13-Jun-2012 Intent Fast DO, Chaparrita A Comments: ekg showed normal sinus rhythym, normal axis, no acute st/t wave changes MRI - BrainBy: Fast DO, Chaparrita A On: 13-Jun-2012 Intent Fast DO, Chaparrita A Comments: july ADMINISTRATION OF PNEUMOCOCCAL On: 13-Jun-2012 Intent VACCINE ([id number])By: Fast DO, Chaparrita A Fast DO, Chaparrita A Eprescribed prescriptions On: 13-Jun-2012 Intent ([id number])By: Марина Concepcion MAMMOGRAM, SCREENING, BOTH BREASTS On: 28-Dec-2011 Intent ([id number])By: Fast DO, Chaparrita A Fast DO, Chaparrita A DXA, BONE DENSITY, AXIAL SKELETON On: 28-Dec-2011 Intent ([id number])By: Fast DO, Chaparrita A Fast DO, Chaparrita A MRI - BrainBy: Fast DO, Chaparrita A On: 28-Dec-2011 Intent Fast DO, Chaparrita A Comments: end of jan Cartoid DopplerBy: Fast DO, Chaparrita A On: 28-Dec-2011 Intent Fast DO, Chaparrita A Comments: oct Ultrasound - PelvisBy: Fast DO, On: 28-Dec-2011 Intent Chaparrita A Fast DO, Chaparrita A FLU VAC, SPLIT, >3 YEARS, INTRAMUSC On: 28-Dec-2011 Intent ([id number])By: Марина Concepcion Comments: Lot #:[id number] date:mount given:0.5mlRoute: IMSite given: left deltoidGiven by: CARMELINA Hook ADMINISTRATION OF INFLUENZA VIRUS On: 28-Dec-2011 Intent VACCINE (G0008)By: Марина Concepcion Aerosol Treatment ([id number])By: Ciesa On: 30-Nov-[address] - Abdomen & PelvisBy: Fast DO, On: 21-Sep-2011 Intent Chaparrita A Fast DO, Chaparrita A Comments: with special cuts through the kidney- october EKG ([id number])By: Марина Concepcion On: 15-Jun-2011 Intent Comments: ekg [...] Comments: Call results to Dr. Albrecht @ [phone] as soon as resulted please. DO, Chaparrita A Eprescribed prescriptions On: 11-Jan-2011 Intent ([id number])By: Ambrocio DO, Chaparrita A Fast DO, Chaparrita A MAMMOGRAM, SCREENING, BOTH BREASTS On: 11-Jan-2011 Intent ([id number])By: Fast DO, Chaparrita A Fast DO, Chaparrita A CT - Sinuses CompleteBy: Ambrocio WOLFF, On: 11-Jan-2011 Intent Chaparrita A Fast DO, Chaparrita A Cartoid DopplerBy: Fast DO, Chaparrita A On: 11-Jan-2011 Intent Fast DO, Chaparrita A ADMINISTRATION OF INFLUENZA VIRUS On: 11-Jan-2011 Intent VACCINE (G0008)By: Марина Concepcion FLU VAC, SPLIT, >3 YEARS, INTRAMUSC On: 11-Jan-2011 Intent ([id number])By: Марина Concepcion Eprescribed prescriptions On: 12-Oct-2010 Intent ([id number])By: Ambrocio DO, Chaparrita A Fast DO, Chaparrita A Renal DopplerBy: Fast DO, Chaparrita A On: 12-Oct-2010 Intent Fast DO, Chaparrita A Cartoid DopplerBy: Fast DO, Chaparrita A On: 12-Oct-2010 Intent Fast DO, Chaparrita A Comments: sept TDAP VACCINE >7 IM ([id number])By: On: 13-May-2010 Intent Lin Tineo LPNie Comments: Lot #[id number]/25/13Site-left deltoidgiven by:TIFFANY EKG ([id number])By: Марина Concepcion On: 13-May-2010 Intent Comments: ekg showed normal sinus rhythym, normal axis, no acute st/t wave changes Aerosol Treatment ([id number])By: Ciesa On: 22-Dec-2009 Intent Johanna SANZ Cartoid DopplerBy: Fast DO, Chaparrita A On: 01-Dec-2009 Intent Fast DO, Chaparrita A MAMMOGRAM, SCREENING, BOTH BREASTS On: 01-Dec-2009 Intent ([id number])By: Fast DO, Chaparrita A Fast DO, Chaparrita A DXA, BONE DENSITY, AXIAL SKELETON On: 01-Dec-2009 Intent ([id number])By: Fast DO, Chaparrita A Fast DO, Chaparrita A Ultrasound - SpleenBy: Fast DO, On: 17-Jun-2009 Intent Chaparrita A Fast DO, Chaparrita A EKG ([id number])By: Марина Concepcion On: 10-Mar-2009 Intent Comments: ekg showed normal sinus rhythym, normal axis, no acute st/t wave changes FLU VAC, SPLIT, >3 YEARS, INTRAMUSC On: 09-Jan-2009 Intent ([id number])By: Stacy Jorge Comments: Lot #[id number]-left deltoidDose0.5mlgiven by Marycarmen Jorge LPN ADMINISTRATION OF INFLUENZA VIRUS On: 09-Jan-2009 Intent VACCINE (G0008)By: Stacy Jorge MAMMOGRAM, SCREENING, BOTH BREASTS On: 04-Dec-2008 Intent ([id number])By: Fast DO, Chaparrita A Fast DO, Chaparrita A MAMMOGRAM, SCREENING, BOTH BREASTS On: 03-Sep-2008 Intent ([id number])By: Fast DO, Chaparrita A Fast DO, Chaparrita A FLU VAC, SPLIT, >3 YEARS, INTRAMUSC On: 16-Jan-2008 Intent ([id number])By: Janet Scherer RN Comments: Lot #: [id number] date: 09/10Amount given: 0.5 mlRoute: IMSite given: Left deltoidGiven by: Olivia Bell LPN ADMINISTRATION OF INFLUENZA VIRUS On: 16-Jan-2008 Intent VACCINE (G0008)By: Janet Scherer RN EKG ([id number])By: Fast DO, Chaparrita A On: 29-Aug-2007 Intent Fast DO, Chaparrita A Comments: done km ADMINISTRATION OF PNEUMOCOCCAL On: 29-Aug-2007 Intent VACCINE (G0009)By: Fast DO, Chaparrita A Fast DO, Chaparrita A PNEUM VAC ADLT/IMUMNOSPR, SBC/INTRM On: 29-Aug-2007 Intent ([id number])By: Fast DO, Chaparrita A Fast Comments: 0.5cc given im lt arm [id number] exp 02-13-08 DO, Chaparrita A DXA, BONE DENSITY, AXIAL SKELETON On: 29-Aug-2007 Intent ([id number])By: Fast DO, Chaparrita A Fast DO, Chaparrita A MAMMOGRAM, SCREENING, BOTH BREASTS On: 29-Aug-2007 Intent ([id number])By: Fast DO, Chaparrita A Fast DO, Chaparrita [...] Indication: Hypertension, benign Encounters Phone Encounter On: 06-Mar-2018 8:59 Encounter Diagnosis: [...] new people and be involved in the mandaen 0 bps are good and sugar looking [...] and other (DDD ). Note for Martinez w up for chronic medical issues: she has been working with [employer] and trying to work on that- she got rid of respiratory infection but was sick for weeks and was on pred so her sugar up and chol up a bit- trying to add protein shakes drink more water- she is starting back at [facility]- diarrhea resolved- we did talk about going [...] that she had episode where went to [facility] and she couldnt remember where she was- and happened one other time where she didnt recognize the roads- sister had alzheimer s- weight down because was sick- but coming back up- she hasnt done counseling with hospice has been thru before- she lonely- not necessarily unhappy- she doing self help she is singing with mandaen- -rodriguez gars are all in low 100s-130- going to [employer] for a month next monthEncounter Diagnosis: Nonsmoker, [...] Eddie and bp is good she joined [employer] sugar up bit doi ng ice cream-the bone density reviewed little thinner she not exercising routienly until just recent at [employer] and sees kidney doc next week and [...] maribel yfriend in hospice - going to jail end of month- too much to care [...] (yearly). Note for Physical exam: [facility] Physical- Talk about trying Myrbetriq., [ADDITIONAL [...] Meningioma (Renamed from 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, 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, BRAIN/FORENSIC SCIENCE EXAMINER NEC (794.09)) [facility] Visit [...] Meningioma (Renamed from 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, 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, BRAIN/FORENSIC SCIENCE EXAMINER NEC (794.09)), Diabetes, Type II, controlled (250.00), [...] take byetta due to cost in [facility]- - takes ??lorazepam 1-2 times a [...] Meningioma (Renamed from 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, 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, BRAIN/FORENSIC SCIENCE EXAMINER NEC (794.09)), Colon Polyp [facility] [...] Meningioma (Renamed from 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, 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, BRAIN/FORENSIC SCIENCE EXAMINER NEC (794.09)), OCCLUSION AND STENOSIS OF CAROTID [...] Meningioma (Renamed from 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, 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, BRAIN/FORENSIC SCIENCE EXAMINER NEC (794.09)), Chronic glomerulonephritis with lesion of [...] Meningioma (Renamed from 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, 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, BRAIN/FORENSIC SCIENCE EXAMINER NEC (794.09)), Other and unspecified hyperlipidemia (272.4), [...] Meningioma (Renamed from 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, 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, BRAIN/FORENSIC SCIENCE EXAMINER NEC (794.09)) [facility] Office Visit [...] Meningioma (Renamed from 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, 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, BRAIN/FORENSIC SCIENCE EXAMINER NEC (794.09)), Gerd (530.81), Hyperlipidemia, Unspecified (272.4), [...] Meningioma (Renamed from 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, 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, BRAIN/FORENSIC SCIENCE EXAMINER NEC (794.09)), Hypertension,benign(401.1), OCCLUSION AND STENOSIS OF [...] Meningioma (Renamed from 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, 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, BRAIN/FORENSIC SCIENCE EXAMINER NEC (794.09)), Diabetes, Type II, controlled (250.00), [...] Meningioma (Renamed from 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, 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, BRAIN/FORENSIC SCIENCE EXAMINER NEC (794.09)), Hypertension,benign(401.1), Osteopenia (733.90), Depression (311.), [...] weight down 23 pounds- and trying joined [employer]- she feels well - she increased celexa [...] Meningioma (Renamed from 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, 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, BRAIN/FORENSIC SCIENCE EXAMINER NEC (794.09)), Chronic glomerulonephritis with lesion of [...] Meningioma (Renamed from 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, 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, BRAIN/FORENSIC SCIENCE EXAMINER NEC (794.09)) End: 26-Jan-2011 16:53 [facility] Office Visit On: 19-Jan-2011 14:30 Encounter Diagnosis: brain tumor End: 21-Sep-2011 8:09 [facility] Phone Encounter On: 19-Jan-2011 13:41 Encounter Diagnosis: 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, 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, BRAIN/FORENSIC SCIENCE EXAMINER NEC (794.09) End: 19-Jan-2011 13:44 [facility] [...] Disease - Lumbar (722.52), Osteopenia (733.90), Hypertension,benign(401.1), gs [facility] Historical Summary On: 30-Aug-2007 [...] WITH RADICULOPATHY (724.4) [facility] Payers MedicareAARP/[facility]ITAL[facility]BERT; a guarantor
--- OUTSIDE RECORDS SUMMARY | 2018-06-25 21:54 | XMS RPT_ITS | Continuity of Care Document ---
:1940 Author Organization [facility] Address [address] [place] [address] Phone Care Team Providers Name Role Phone [...] Knee pain, unspecified laterality (719.46) Comments: Valorie:lot: [id number]: 09/20site/route: L knee Status: Active Leg pain, [...] spray daily for 0 days Quantity: 1 {Warwick} Refills: 0 Ordered:04-May-2016 SHONDA Andrade Start : [...] and dispense 8 ounes TOTAL mixed solutionCal [id number] if questions SPECTAZOLE, 1% (External Cream) 1 [...] End : 11-Feb-2015 Discontinued Comments:th[age], called to [facility] 08-30-14 [facility] Allergies and Adverse Reactions Name Dates Details [...] Meningioma (Renamed from 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, 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, BRAIN/PERIOPERATIVE ASSISTANT NEC) (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 2016 right Cholecystectomy Completed lumbar ablivk==3302 Completed Tonsillectomy Completed Date Value Details 19-Dec-2017 Echocardiogram Complete Result: Comments: See Note; NOTES: [facility] Cardiovascular Services [address] [place] [address] Echo Complete 12/19/17 0800 MR#: [id number] Acct: [id number] Name: CLARENCE ALBERT ep #: [id number] : 1940 77 From: Chuckie Cormier MD Attending Dr: Chaparrita Albrecht DO Status: REG CLI Ordering Dr: Chaparrita Albrecht DO Date: 12/19/17 Location: [facility] Sex: F C Admitted: Reason For Study: [...] Dictated: 12/19/17 0800 Date Transcribed: 12/19/17 1022 Industrial Safety Engineer: Signed 07-Dec-2017 Carotid Duplex Ultrasound Result: Comments: See Note; NOTES: [facility] Cardiovascular Services [address] [place] [address] Carotid Duplex Ultrasound 12/06/17 0901 MR#: [id number] Acct: [id number] Name: CLARENCE WHITTINGTON Rep #: [id number] : 1940 77 From: Anurag Loya MD [...] the left vertebral artery. Procedure Carotid Duplex 64735. Exam performed in department. Interpretation Summary Mild (<50%) stenosis right extracranial internal carotid. Mild (<50%) stenosis left extracranial internal carotid. Flow within the vertebral arteries is antegrade bilaterally. __ __ Ordering Physician: Chaparrita Albrecht Performed By: Margot Benton RVT and Student 12/07/17 0809 Date Anurag Loya MD CC: Chaparrita Albrecht DO Date Dictated: 12/06/17900 Date Transcribed: 12/07/17808 Industrial Safety Engineer: Signed 06-Dec-2017 SCREENING MAMM (CAD), BILAT Result: Comments: See Note; NOTES: [facility] Imaging Services [address] [place] [address] SCREENING MAMM (CAD), BILAT MR#: [id number] Acct: [id number] Name: CLARENCE ALBERT Rep #: [id number] : 1940 F 77 From: Misael Hebert MD PCP: Chaparrita Albrecht DO Status: REG CLI Study: SCREENING MAMM (CAD), BILAT Date of Exam: 12/06/17 Exam# [id number] Ordering Dr: Chaparrita Albrecht DO MAMM OGRAPHY [...] delay biopsy of a clinically suspicious abnormality. [id number] Electronically Signed: Misael Hebert MD at 15:31 EDT Tel [phone], Se rvice support , CC: Chaparrita Albrecht DO Industrial Safety Engineer: Signed 10-Jun-2017 Brain W/WO Contrast Result: Comments: See Note; NOTES: [facility] Imaging Services [address] [place] [address] Brain W/WO Contrast MR#: [id number] Acct: [id number] Name: CLARENCE ALBERT Rep #: [id number] : 1940 F 77 From: Laya Montilla MD PCP: Chaparrita Albrecht DO Status: REG CLI Study: Brain W/WO Contrast Date of Exam: 06/10/17 Exam# [id number] Ordering Dr: Chaparrita Albrecht DO STUDY: MRI [...] Service support , CC: Chaparrita Albrecht DO Industrial Safety Engineer: Signed 05-May-2017 Chest PA and Lateral Result: Comments: See Note; NOTES: [facility] Imaging Services [address] [place] [address] Chest PA and Lateral MR#: [id number] Acct: [id number] Name: CLARENCE ALBERT Rep #: [id number] : 1940 F 77 From: Edwar Patino MD PCP: Chaparrita Albrecht DO Status: REG CLI Study: Chest PA and Lateral Date of Exam: 05/05/17 Exam# [id number] Ordering Dr: Keri Singh MD STUDY: X-RAY [...] CC: Keri Singh MD; Chaparrita Albrecht DO Industrial Safety Engineer: Signed 02-Nov-2016 Dexa Bone Density Study (HP) Result: Comments: See Note; NOTES: [facility] Imaging Services [address] [place] [address] Verdana 4d Dexa Bone Density Study (HP) MR#: [id number] Acct: [id number] Name: LYNNE ALBERT Rep #: [id number] : 1940 F 76 From: Misael Hebert MD PCP: Chaparrita Albrecht DO Status: REG CLI Study: Dexa Bone Density Study (HP) Date of Exam: 11/02/16 Exam# [id number] Ordering Dr: Laura DO STUDY: DUAL ENERGY [...] Misael Hebert MD at 11:02 EDT Tel [phone], Service support , CC: Chaparrita Albrecht DO Industrial Safety Engineer: Signed 02-Nov-2016 SCREENING MAMM (CAD), BILAT Result: Comments: See Note; NOTES: [facility] Imaging Services [address] [place] [address] Verdana 4d SCREENING MAMM (CAD), BILAT MR#: [id number] Acct: [id number] Name: CLARENCE ALBERT Rep #: [id number] : 1940 F 76 From: Misael Hebert MD PCP: Chaparrita Albrecht DO Status: REG CLI Study: SCREENING MAMM (CAD), BILAT Date of Exam: 11/02/16 Exam# [id number] Ordering Dr: Case Albrecht DO MAMMOGRAPHY - [...] delay biopsy of a clinically suspicious abnormality. [id number] Electronically Signed: Misael Hebert MD at 12:44 EDT Tel [phone], Service support , CC: Chaparrita Albrecht DO Industrial Safety Engineer: Signed 05-Aug-2016 Venous Duplex Lower Extremity Result: Comments: See Note; NOTES: [facility] Cardiovascular Services [address] [place] [address] Venous Duplex US, Unilateral 08/05/16 1053 MR#: [id number] Acct: [id number] Name: CLARENCE WEI Rep #: [id number] : 1940 76 From: Elvin Natarajan MD [...] Dictated: 08/05/16 1053 Date Transcribed: 08/05/16 1127 Industrial Safety Engineer: Signed 27-May-2016 Knee 4 or More Views Result: Comments: See Note; NOTES: [facility] Imaging Services [address] [place] [address] Verdana 4d Knee 4 or More Views MR#: [id number] Acct: [id number] Name: CLARENCE ALBERT Rep #: [id number] : 1940 F 76 From: Misael Hebert MD PCP: Chaparrita Albrecht DO Status: REG CLI Study: Knee 4 or More Views Date of Exam: 05/27/16 Exam# [id number] Ordering Dr: Kylah Linda DO UDY: X-RAY [...] MD at 10:41 EST , Service support [phone], CC: Chaparrita Albrecht DO; Kylah Linda DO Industrial Safety Engineer: Signed 13-May-2016 Sinus/Facial Bone Result: Comments: See Note; NOTES: [facility] Imaging Services [address] [place] [address] Verdana 4d Sinus/Facial Bone MR#: [id number] Acct: [id number] Name: CLARENCE ALBERT Rep #: [id number] : 1940 F 76 From: Godwin Winter MD PCP: Chaparrita Albrecht DO Status: REG CLI Study: Sinus/Facial Bone Date of Exam: 05/13/16 Exam# [id number] Ordering Dr: Alejandro Silverman MD STUDY: CT [...] MD at 7:35 EST , Service support [phone], CC: Chaparrita Albrecht DO; Alejandro Silverman MD Industrial Safety Engineer: Signed 21-Apr-2016 Emergency Department Summary Result: Comments: See Note; NOTES: [facility] Medical Records Department [address] [place] [address] Emergency Department Summary MR#: [id number] Acct: [id number] Name: CLARENCE ALBERT Rep #: [id number] : 1940 76 From: Carissa Murphy MD [...] epistaxis. CARISSA MURPHY MD T: NTS JOB: [id number] 04/21/16 0806 <Electronically signed by Carissa Murphy MD> Date Carissa donovan MD Cosigner Signature (If Indicated): Date CC: Chaparrita Albrecht DO Date Dictated: 04/20/161711 Date Transcribed: 04/20/161711 Industrial Safety Engineer: Signed 20-Apr-2016 Discharge Instruction Result: Comments: See Note; NOTES: [facility] Medical Records Department [address] [place] [address] Discharge Instruction 04/20/16 1303 MR#: [id number] Acct: [id number] Name: CLARENCE ALBERT Rep #: [id number] : 1940 76 From: Carissa Murphy MD [...] your Primary Care Provider. Call [facility] ([phone]) or report to the closest Emergency Room. Call 911 if necessary. 04/20/16 7584 <Electronically signed by Carissa Murphy MD> Date Carissa Murphy MD Cosigner Signature (If I ndicated): Date CC: Chaparrita Albrecht DO 02-Nov-2015 Carotid Duplex Ultrasound Result: Comments: See Note; NOTES: [facility] Cardiovascular Services [address] [place] [address] Carotid Duplex Ultrasound 10/30/15 1100 MR#: [id number] Acct: [id number] Name: CLARENCE ALBERT Rep #: [id number] : 1940 75 From: Elvin Natarajan MD Attending Dr: Chaparrita Albrecht DO Status: REG CLI Ordering Dr: Chaparrita Albrecht DO Date: 10/30/15 Location: [facility] Sex: F C Adm itted: Reason For [...] the left vertebral artery. Procedure Carotid Duplex 50735. The exam was diagnostic. Exam performed in [...] Dictated: 10/30/15 1100 Date Transcribed: 11/02/15 1143 Industrial Safety Engineer: Signed 30-Oct-2015 Bilat Scrn Digital AND CAD Result: Comments: See Note; NOTES: [facility] Imaging Services [address] [place] [address] Verdana 4d Bilat Scrn Digital AND CAD MR#: [id number] Acct: [id number] Name: CLARENCE ALBERT Rep #: [id number] : 1940 F 75 From: Andres Brady MD PCP: Chaparrita Albrecht DO Status: REG CLI Study: Bilat Scrn Digital AND CAD Date of Exam: 10/30/15 Exam# [id number] Ordering Dr: Chaparrita Albrecht DO MAMMOGRAPHY - [...] biop sy of a clinically suspicious abnormality. FR2911 Electronically Signed: Andres Brady MD at 17:48 EDT Tel , Service support [phone], CC: Chaparrita Albrecht DO Industrial Safety Engineer: Signed 30-Oct-2015 Bilat Scrn Digital AND CAD Result: Comments: See Note; NOTES: [facility] Imaging Services [address] [place] [address] Verdana 4d Bilat Scrn Digital AND CAD MR#: [id number] Acct: [id number] Name: CLARENCE ALBERT Rep #: [id number] : 1940 F 75 From: Andres Brady MD PCP: Chaparrita Albrecht DO Status: REG CLI Study: Bilat Scrn Digital AND CAD Date of Exam: 10/30/15 Exam# [id number] Ordering Dr: Chaparrita Albrecht DO MAMMOGRAPHY - [...] abnormalities are identified. CC: Chaparrita Albrecht DO Industrial Safety Engineer: Signed 22-Oct-2015 ELECTROCARDIOGRAM, COMPLETE (ECG) (01008) Comments: ekg showed normal sinus rhythym, normal axis, no acute st/t wave changes no change Result: [MEASUREMENTS ANALYSIS] Date of Test: 10/22/2015 14:41:29; Heart Rate: 71; AR Interval: 140; QRS: 94; QT Interval: 384; Corrected QT Interval (QTc): 403; P Wave [place]: 58; QRS Wave [place]: -3; T Wave [place]: 56; Blood Pressure: 128/76 [ECG DIAGNOSTIC STATEMENTS] Date of Test: 10/22/2015 14:41:29; Summary: Sinus Rhythm Low voltage -possible pulmonary disease. ABNORMAL 22-Jul-2015 Kidney and Bladder Result: Comments: See Note; NOTES: [facility] Imaging Services [address] [place] [address] Verdana 4d Kidney and Bladder MR#: [id number] Acct: [id number] Name: Yaniv ALBERT Rep #: [id number] : 1940 F 75 From: Nir Sanchez MD PCP: Chaparrita Albrecht DO Status: REG CLI Study: Kidney and Bladder Date of Exam: 07/22/15 Exam# [id number] Ordering Dr: Chaparrita Albrecht DO STUDY: RENAL [...] at 4:59 EDT Tel , Service support [phone], CC: Chaparrita Albrecht DO Industrial Safety Engineer: Signed 11-Mar-2015 Knee 4 or More Views Result: Comments: See Note; NOTES: [facility] Imaging Services [address] [place] [address] Verdana 4d Knee 4 or More Views MR#: [id number] Acct: [id number] Name: CLARENCE ALBERT Rep #: [id number] : 1940 F 74 From: Trent Cameron DO PCP: Chaparrita Albrecht DO Status: REG CLI Study: Knee 4 or More Views Date of Exam: 03/11/15 Exam# [id number] Ordering Dr: Case Albrecht DO STUDY: X-RAY [...] at 7:45 EST Tel , Service support [phone], RAD/Knee 4 or More Views IMPRESSION: Degener ative changes within the knee. No acute fracture. Small suprapatellar effusion. Electronically Signed: Trent Cameron DO at 7:45 EST Tel , Service support [phone], CC: Chaparrita Albrecht DO Industrial Safety Engineer: Signed 11-Mar-2015 Knee 4 or More Views Result: Comments: See Note; NOTES: [facility] Imaging Services [address] [place] [address] Verdana 4d Knee 4 or More Views MR#: [id number] Acct: [id number] Name: CLARENCE ALBERT Rep #: [id number] : 1940 F 74 From: Trent Cameron DO PCP: Chaparrita Albrecht DO Status: REG CLI Study: Knee 4 or More Views Date of Exam: 03/11/15 Exam# [id number] Ordering Dr: Case Albrecht DO STUDY: X-RAY [...] at 7:46 EST Tel , Service support [phone], RAD/Knee 4 or More Views IMPRESSION: Mild degenerative changes. No acute bony abnormality. Electronically Signed: Trent Cameron DO at 7:46 EST Tel , Service support [phone], CC: Chaparrita Albrecht DO Industrial Safety Engineer: Signed 18-Oct-2014 Carotid Duplex Ultrasound Result: Comments: See Note; NOTES: [facility] Cardiovascular Services [address] [place] [address] Carotid Duplex Ultrasound 10/18/14 1331 MR#: [id number] Acct: [id number] Na me: CLARENCE ALBERT Rep #: [id number] : 1940 74 From: Elvin Natarajan MD [...] the left vertebral artery. Procedure Carotid Duplex 92096. The exam was diagnostic. Exam performed in department. Interpretatio n Summary No significant atherosclerotic plaque or stenosis noted in the right internal carotid artery. Mild (<50%) stenosis left extracranial internal carotid. Flow within the vertebral matteo yaneli is antegrade bilaterally. Ordering Physician: Chaparrita Albrecht Performed By: JENELLE Vásquez 10/18/14 1616 Date Elvin Nataarjan MD CC: Chaparrita Albrecht DO Date Dictated: 10/18/14 1331 Date Transcribed: 10/18/14 1616 Industrial Safety Engineer: Signed 18-Oct-2014 Bilat Scrn Digital AND CAD Result: Comments: See Note; NOTES: [facility] Imaging Services [address] [place] [address] Breast Imaging Report MR#: [id number] Acct: [id number] Name: CLARENCE ALBERT Rep #: [id number] : 1940 F 74 From: Misael Hebert MD PCP: Chaparrita Albrecht DO Status: REG CLI Study: Saad Jaffe Digital AND CAD Date of Exam: 10/18/14 Exam# [id number] Ordering Dr: Chaparrita Albrecht DO MAMMOGRAPHY - [...] Misael redmond MD at 13:44 EDT Tel [phone], Service support [phone], CC: Chaparrita Albrecht DO Industrial Safety Engineer: Signed 09-Jul-2014 Dexa Bone Density Study (HP) Result: Comments: See Note; NOTES: [facility] Imaging Services [address] [place] [address] Bone Density Report MR#: [id number] Acct: [id number] Name: CLARENCE ALBERT Rep #: [id number] : 1940 F 74 From: Misael Hebert MD PCP: Chaparrita Albrecht DO Status: [facility] CLI Study: Dexa Bone Density Study (HP) Date of Exam: 07/09/14 Exam# [id number] Ordering Dr: Chaparrita Albrecht DO STUDY: DUAL [...] Angel Hebert MD at 14:55 EDT Tel [phone], Service support [phone], CC: Chaparrita Albrecht DO Industrial Safety Engineer: Signed 17-Sep-2013 Chest PA and Lateral Result: Comments: See Note; NOTES: [facility] Imaging Services [address] [place] [address] Radiology Report MR#: [id number] Acct: [id number] Name: CLARENCE ALBERT Rep #: [id number] : 1940 F 73 From: David Bennett MD PCP: Chaparrita Albrecht DO Status: REG CLI Study: Chest PA and Lateral Date of Exam: 09/17/13 Exam# [id number] Ordering Dr: Chaparrita Albrecht DO STUDY: X-RAY [...] MD at 20:44 EDT , Service support [phone], RAD/Chest PA and Lateral IMPRESSION: No focal infiltrate or edema. Electronic ally Signed: David Bennett MD at 20:44 EDT , Service support [phone], CC: Chaparrita Albrecht DO Industrial Safety Engineer: Signed 17-Sep-2013 Spirometry (38216) Result: 29-Aug-2013 Carotid Duplex Ultrasound Result: Comments: See Note; NOTES: [facility] Cardiovascular Services [address] [place] [address] Carotid Duplex Ultrasound 08/24/13 0939 MR#: [id number] Acct: [id number] Chalo e: CLARENCE ALBERT Rep #: [id number] : 1940 73 From: Anurag Loya MD [...] in the left bulb. Procedure Carotid Duplex 35054. Exam perfor med in department. Interpretation Summary Mild (<50%) stenosis right extracranial internal carotid. Mild (<50%) stenosis left extracranial internal carotid. Flow within the vertebra l arteries is antegrade bilaterally. Ordering Physician: Chaparrita Albrecht Performed By: Kendal Benton RVT : Chaparrita Albrecht DO Date Dictated: 08/24/13 0939 Date Transcribed: 08/29/13 1118 Industrial Safety Engineer: Signed Immunization Name Dates Details Influenza (3 years and up) on: 16-Jan-2008 Comments: Lot #: [id number] date: 09/10Amount given: 0.5 mlRoute: IMSite given: Left deltoidGiven by: Olivia Bell LPN Influenza (3 years and up) on: 09-Jan-2009 Comments: Lot #[id number]-left deltoidDose0.5mlgiven by Marycarmen Jorge LPN Pneumococcal (2 years and up) on: 29-Aug-2007 Comments: 0.5cc given im lt arm [id number] exp 02-13-08 Family History Unknown Family Member [...] kg/m2 Body Surface Area Calculated 1.76 m2 02-Wkw-[id number]:39 Temperature 97.9 f Comments: Method: Temporal Pulse [...] Description Value Details :24 HgA1C , Office (81992) HgA1C , Office 6.5 % (Normal) Range: 4.6 - 7.1 :14 LIPID PANEL (15986) Comments: PATIENT WAS FASTINGPERFORMED BY: [facility] CampusNrsqfy8814 [facility] [id number] LDL/HDL Ratio 1.1 {ratio} (Normal) Range: 0.0-3.2 [...] (Normal) Range: 100-199 :14 Vitamin D Hydroxy (50904) Comments: PATIENT WAS FASTINGPERFORMED BY: [facility]6370 [facility] [id number] Vitamin D, 25-Hydroxy 37.8 ng/mL (Normal) Range: 30.0-100.0 Comments: Vitamin D deficiency has been defined by the [place] of[place]icine and an Endocrine Society practice guideline as alevel of serum 25-OH vitamin D less than 20 ng/mL (1,2).The Endocrine Society went on to further define vitamin Dinsufficiency as a level between 21 and 29 ng/mL (2).1. IOM ([place] of Medicine). 2010. Dietary reference intakes for calcium and D. [place]: The National Academies Press.2. Mira MF, Rosette [place], Tommy SWAIN, et al. Evaluation, treatment, and prevention of vitamin D deficiency: an Endocrine Society clinical practice guideline. JCEM. 2010; 96(7):1911-30. :14 CBC with auto diff (08548) Comments: PATIENT WAS FASTINGPERFORMED BY: [facility] CampusBkikfc7712 [facility] [id number] Immature Grans (Abs) 0.0 {x10E3/uL} (Normal) Range: [...] PANEL, COMPREHENSIVE Comments: PATIENT WAS FASTINGPERFORMED BY: [facility] CampusIpfgxd2582 [facility] [id number] (52808) ALT (SGPT) 10 [iU]/L (Normal) Range: 0-32 [...] CREATININE RATIO Comments: PATIENT WAS FASTINGPERFORMED BY: Obihai TechnologyAtlantiCare [facility] CampusZwfkgk1034 [facility] [id number] (31788) AND (88107) Alb/Creat Ratio 4213.3 {mg/g_creat} (Abnormal) Range: 0.0-30.0 Albumin, Urine 3206.3 ug/mL (Normal) Comments: Results confirmed ondilution. Creatinine, Urine 76.1 mg/dL (Normal) :40 CBC & PLATELETS (AUTO) (68182) Comments: please fax to Dr. Austin- [phone]; PATIENT WAS FASTINGPERFORMED BY: Obihai TechnologyAtlantiCare [facility] CampusMegloe6178 [facility] [id number] Platelets 148 {x10E3/uL} (Abnormal) Range: 150-379 RDW [...] PANEL Comments: please fax to Dr. Austin- [phone]; PATIENT WAS FASTINGPERFORMED BY: Obihai TechnologyAtlantiCare [facility] CampusSbqtbt5089 [facility] [id number] Information: [id number],U43027 FX DR. SANTANA (97019) Albumin 3.1 g/dL (Abnormal) Range: 3.5-4.8 Phosphorus [...] 8-27 Glucose 133 mg/dL (Abnormal) Range: 65-99 12-Zun-38838:40 MAGNESIUM (12444) Comments: please fax to Dr. Austin- [phone]; PATIENT WAS FASTINGPERFORMED BY: Major Aide [facility] Bsgbyl2372 [facility] [id number] Magnesium 1.9 mg/dL (Normal) Range: 1.6-2.3 82-Nnw-85985:40 CALCIFEDIOL (10838) Comments: please fax to Dr. Austin- [phone]; PATIENT WAS FASTINGPERFORMED BY: Major [facility]ide [facility] Tkawbz8719 [facility] [id number] Vitamin D, 25-Hydroxy 29.4 ng/mL (Abnormal) Range: 30.0-100.0 Comments: Vitamin D deficiency has been defined by the [place] of[place]icine and an Endocrine Society practice guideline as alevel of serum 25-OH vitamin D less than 20 ng/mL (1,2).The Endocrine Society went on to further define vitamin Dinsufficiency as a level between 21 and 29 ng/mL (2).1. IOM ([place] of Medicine). 2010. Dietary reference intakes for calcium and D. [place]: The National Academies Press.2. Mira MF, Rosette [place], Tommy SWAIN, et al. Evaluation, treatment, and prevention of vitamin D deficiency: an Endocrine Society clinical practice guideline. JCEM. 2010; 96(7):1911-30. :40 PARATHORMONE (39026) Comments: please fax to Dr. Austin- [phone]; PATIENT WAS FASTINGPERFORMED BY: EVE [facility] Qatgug1723 [facility] [place] [id number] PTH, Intact 22 pg/mL (Normal) Range: 15-65 :30 COLON BIOPSY (CHOOSE See Note (Normal) Comments: [facility] [address] [place], [address] SITE) Comments: Patient: CLARENCE ALBERT : 1940 (77/F) Acct Num: [id number] Phys: Marcus Caldera Unit Num: [id number] Loc: [facility] Specimen: [id number] Received: 09/16/171528 Spec Type: C OLON BX [...] one cassette. / MARCY:dustin 09/19/17 TC:1 CPT: 52303 x2 HEADER OPERATION: Colonoscopy PRE-OP DIAGNOSIS: History [...] PANEL, COMPREHENSIVE Comments: PATIENT NOT FASTINGPERFORMED BY: [facility] CampusOgjvst8599 [facility] [id number] (29998) ALT (SGPT) 14 [iU]/L (Normal) Range: 0-32 [...] (Abnormal) Range: 65-99 :07 HgA1C , Office (25976) HgA1C , Office 7.2 % (Abnormal) Range: 4.6 - 7.1 :37 Clostridium difficile Toxin Comments: PATIENT NOT FASTINGPERFORMED BY: [facility]CoAtl[facility] CampusXinmfl7599 [facility] [id number] A+B, EIA (52000) C difficile Toxins A+B, EIA Negative (Normal) :37 LEUKOCYTE COUNT, FECAL (45579) Comments: PATIENT NOT FASTINGPERFORMED BY: [facility] [facility] Dvfmco7117 [facility] [id number] Result 1 NWBC (Normal) Comments: No white blood cells seen. White Blood Cells (WBC), Final report (Normal) Stool :37 OVA & PARASITE DIR SMEAR Comments: PATIENT NOT FASTINGPERFORMED BY: [facility] [facility]Saint [facility] Dmovha4878 [facility] [id number] (53329) Result 1 NOCP (Normal) Comments: No ova, cysts, or parasites seen. Ova + Parasite Exam Final report (Normal) Comments: These results were obtained using wet preparation(s) and trichromestained smear. This test does not include testing for Cryptosporidiumparvum, Cyclospora, or Microsporidia. :37 SETH CULTURE-STOOL (93842) Comments: PATIENT NOT FASTINGPERFORMED BY: [facility] [facility] Ykfnid4723 [facility] [id number] Information: SRC:ST SRC:ST E coli Shiga Toxin EIA Negative (Normal) Result 1 NCI (Normal) Comments: No Campylobacter species isolated. Campylobacter Culture Final report (Normal) Result 1 NSS (Normal) Comments: No Salmonella or Shigella recovered. Salmonella/Shigella Screen Final report (Normal) :06 Renal function Panel Comments: fax copy to Dr. Santana [phone]; A courtesy copy of this report has been sent [phone].PATIENT NOT FASTINGPERFORMED BY: [facility] [facility] Sxpbdj0480 [facility] [id number] Information: NURSE DRAW (14962) Albumin 3.5 g/dL (Normal) Range: 3.5-4.8 Phosphorus [...] copy of this report has been sent [phone].PATIENT NOT FASTINGPERFORMED BY: [employer] [place] [id number] :02 Range: 15-65 Vitamin D, 25-Hydroxy 34.7 ng/mL (Normal) Comments: A courtesy copy of this report has been sent [phone].PATIENT NOT FASTINGPERFORMED BY: [employer]70 [facility] [id number] :02 Range: 30.0-100.0 Comments: Vitamin D deficiency has been defined by the [place] ofPrem[facility] Health [facility] Hospitalcine and an Endocrine Society practice guideline as alevel of serum 25-OH vitamin D less than 20 ng/mL (1,2).The Endocrine Society went on to further define vitamin Dinsufficiency as a level between 21 and 29 ng/mL (2).1. IOM ([place] of Medicine). 2010. Dietary reference intakes for calcium and D. [place]: The National Academies Press.2. Mira MF, Rosette LOPEZ, Tommy SWAIN, et al. Evaluation, treatment, and prevention of vitamin D deficiency: an Endocrine Society clinical practice guideline. JCEM. 2010; 96(7):1911-30. 7-Ibt-637528:02 MICROALBUMIN: CREATININE RATIO Comments: send results to Dr. Santana fax: [phone]; A courtesy copy of this report has been sent [phone].PATIENT NOT FASTINGPERFORMED BY: twago - teamwork across global officesKindred Hospital - Greensboro [id number] (35070) AND (99891) Alb/Creat Ratio 4191.2 {mg/g_creat} (Abnormal) Range: 0.0-30.0 Albumin, Urine 2380.6 ug/mL (Normal) Comments: Results confirmed ondilution. Creatinine, Urine 56.8 mg/dL (Normal) 7-Mwm-808766:02 CBC, PLATELETS & MANUAL Comments: send results to Dr. Santana fax: [phone]; A courtesy copy of this report has been sent [phone].PATIENT NOT FASTINGPERFORMED BY: LabCoAtlantiCare Regional Medical Center, [facility] CampusSgccjq0566 [facility] [id number] Information: VIT D25, PTH DIFF (70693) Immature Grans (Abs) 0.0 {x10E3/uL} (Normal) Range: [...] 3.77-5.28 WBC 5.4 {x10E3/uL} (Normal) Range: 3.4-10.8 5-Oft-480717:02 MAGNESIUM (94532) Comments: send results to Dr. Santana fax: [phone]; A courtesy copy of this report has been sent [phone].PATIENT NOT FASTINGPERFORMED BY: twago - teamwork across global officesKindred Hospital - [facility] [id number] Magnesium, Serum 1.8 mg/dL (Normal) Range: 1.6-2.3 9-Aws-669708:02 RENAL FUNCTION PANEL (47238) Comments: send results to Dr. Santana fax: [phone]; A courtesy copy of this report has been sent [phone].PATIENT NOT FASTINGPERFORMED BY: twago - teamwork across global officesKindred Hospital - [facility] [id number] Albumin, Serum 3.7 g/dL (Normal) Range: 3.5-4.8 [...] Glucose, Serum 119 mg/dL (Abnormal) Range: 65-99 6-Avw-646573:07 LIPID PANEL (32691) Comments: PATIENT WAS FASTINGPERFORMED BY: [employer] [facility] [id number] LDL/HDL Ratio 1.4 {ratio} (Normal) Range: 0.0-3.2 Comments: LDL/HDL Ratio Men Women 1/2 Avg.Risk 1.0 1.5 Av g.Risk 3.6 3.2 2X Avg.Risk 6.2 5.0 3X Avg.Risk 8.0 6.1 LDL Cholesterol Calc 102 mg/dL (Abnormal) Range: 0-99 VLDL Cholesterol Cesar 17 mg/dL (Normal) Range: 5-40 HDL Cholesterol 75 mg/dL (Normal) Triglycerides 84 mg/dL (Normal) Range: 0-149 Cholesterol, Total 194 mg/dL (Normal) Range: 100-199 8-Rnh-300095:07 CBC W/AUTO DIFF WBC (27507) Comments: PATIENT WAS FASTINGPERFORMED BY: [facility] Vqiggf2637 [facility] [id number] Immature Grans (Abs) 0.0 {x10E3/uL} (Normal) Range: [...] 3.77-5.28 WBC 4.8 {x10E3/uL} (Normal) Range: 3.4-10.8 8-Rvl-347883:07 METABOLIC PANEL, COMPREHENSIVE Comments: PATIENT WAS FASTINGPERFORMED BY: [facility] Ahcqsq9294 [facility] [id number] (59047) ALT (SGPT) 14 [iU]/L (Normal) Range: 0-32 [...] 8-27 Glucose 158 mg/dL (Abnormal) Range: 65-99 1-Wen-609678:07 VITAMIN B-12 (CYANOCOBALAMIN) Comments: PATIENT WAS FASTINGPERFORMED BY: [facility] Bkmtcg2151 [facility] [id number] (46983) Vitamin B12 771 pg/mL (Normal) Range: 232-1245 13-May-20170:00 CDIFF (Molecular) Comments: [facility] [address] [place], [address] CDIFF See Note (Normal) Comments: Cdiff-MolecularNormal Reference Range = Negative C. Diff DNA Negative- No toxigenic C. Diff DNA DetectedNAAT METHOD Testing was performed using nucleic acid amplification :32 Rapid Flu (47551 x 2) Influenza A Ag Negative (Normal) :35 CBC with auto diff (67768) Comments: PATIENT WAS FASTINGPERFORMED BY: [facility] Ckzpon7679 [facility] [id number] Immature Grans (Abs) 0.0 {x10E3/uL} (Normal) Range: [...] PANEL, COMPREHENSIVE Comments: PATIENT WAS FASTINGPERFORMED BY: LabCoAtlantiCare [facility] Medical [facility], [facility] CampusEondru3640 [facility] [id number] (32981) ALT (SGPT) 16 [iU]/L (Normal) Range: 0-32 [...] (Abnormal) Range: 65-99 :51 HgA1C , Office (81749) HgA1C , Office 6.7 % (Normal) Range: 4.6 - 7.1 7-Pzx-991535:50 CALCIFEDIOL (40381) Comments: A courtesy copy of this report has been sent [phone].PATIENT WAS FASTINGPERFORMED BY: [employer] [place] [id number] Vitamin D, 25-Hydroxy 40.7 ng/mL (Normal) Range: 30.0-100.0 Comments: Vitamin D deficiency has been defined by the [place] ofPrem[facility] Hospitalcine and an Endocrine Society practice guideline as alevel of serum 25-OH vitamin D less than 20 ng/mL (1,2).The Endocrine Society went on to further define vitamin Dinsufficiency as a level between 21 and 29 ng/mL (2).1. IOM ([place] of Medicine). 2010. Dietary reference intakes for calcium and D. [place]: The National Academies Press.2. Mira MF, Rosette LOPEZ, Tommy SWAIN, et al. Evaluation, treatment, and prevention of vitamin D deficiency: an Endocrine Society clinical practice guideline. JCEM. 2010; 96(7):1911-30. 8-Keb-897046:50 PTH (PARATHORMONE) (23777) Comments: A courtesy copy of this report has been sent [phone].PATIENT WAS FASTINGPERFORMED BY: [employer] [place] [id number] PTH, Intact 20 pg/mL (Normal) Range: 15-65 9-Zch-819544:50 MICROALBUMIN: CREATININE RATIO Comments: A courtesy copy of this report has been sent [phone].PATIENT WAS FASTINGPERFORMED BY: [employer] Nysnln[address] [place] [id number] (63456) AND (42145) Microalb/Creat Ratio 4376.0 {mg/g_creat} (Abnormal) Range: 0.0-30.0 Microalbumin, Urine 3369.5 ug/mL (Normal) Comments: Results confirmed ondilution. Creatinine, Urine 77.0 mg/dL (Normal) :50 Renal function Panel Comments: A courtesy copy of this report has been sent [phone].PATIENT WAS FASTINGPERFORMED BY: Obihai TechnologyAtlantiCare Regional Medical Center, [facility] CampusNcdrbc9594 [facility] [id number] Information: SARA DR. SANTANA [phone] (15650) Albumin, Serum 3.8 g/dL (Normal) Range: 3.5-4.8 [...] Glucose, Serum 203 mg/dL (Abnormal) Range: 65-99 8-Wvk-151148:50 Magnesium (44045) Comments: A courtesy copy of this report has been sent [phone].PATIENT WAS FASTINGPERFORMED BY: Obihai TechnologyAtlantiCare Regional Medical Center, [facility] CampusEptwnr3132 [facility] [id number] Magnesium, Serum 1.8 mg/dL (Normal) Range: 1.6-2.3 7-Zri-019648:53 CBC with auto diff (54010) Comments: A courtesy copy of this report has been sent [phone].PATIENT WAS FASTINGPERFORMED BY: Obihai TechnologyAtlantiCare Regional Medical Center, [facility] CampusNncjbx9508 [facility] [id number] Immature Grans (Abs) 0.0 {x10E3/uL} (Normal) Range: [...] {x10E3/uL} (Normal) Range: 3.4-10.8 :53 LIPID PANEL (86995) Comments: A courtesy copy of this report has been sent [phone].PATIENT WAS FASTINGPERFORMED BY: [facility]6370 [facility] [id number] LDL/HDL Ratio 1.2 {ratio_units} (Normal) Range: 0.0-3.2 [...] copy of this report has been sent [phone].PATIENT WAS FASTINGPERFORMED BY: [employer] Tsulji4219 [facility] [id number] (67056) ALT (SGPT) 11 [iU]/L (Normal) Range: 0-32 [...] (Abnormal) Range: 65-99 :57 HgA1C , Office (36563) HgA1C , Office 7.1 % (Normal) Range: 4.6 - 7.1 :09 LIPID PANEL (31157) Comments: PATIENT WAS FASTINGPERFORMED BY: [employer] Sbbbav7768 [facility] [id number] LDL/HDL Ratio 1.3 {ratio_units} (Normal) Range: 0.0-3.2 [...] PANEL, COMPREHENSIVE Comments: PATIENT WAS FASTINGPERFORMED BY: LabCoAtlantiCare Regional Medical Center, [facility] CampusQkpyrf2234 [facility] [id number] (59596) ALT (SGPT) 12 [iU]/L (Normal) Range: 0-32 [...] (Abnormal) Range: 65-99 :50 HgA1C , Office (53169) HgA1C , Office 6.7 % (Normal) Range: 4.6 - 7.1 :25 Magnesium, Serum 1.9 mg/dL (Normal) Comments: PATIENT WAS FASTINGPERFORMED BY: [employer] Road[address]ublin [place] [id number] Range: 1.6-2.3 :25 Microalb/Creat Ratio, Randm Ur Comments: PATIENT WAS FASTINGPERFORMED BY: [employer] Road[address]ublin [place] [id number] Microalb/Creat Ratio 2652.0 {mg/g_creat} Range: 0.0-30.0 (Abnormal) Microalbumin, Urine 2482.3 ug/mL (Normal) Comments: Results confirmed ondilution. Creatinine, Urine 93.6 mg/dL (Normal) PTH, Intact 26 pg/mL (Normal) Comments: PATIENT WAS FASTINGPERFORMED BY: [employer] Spgnxh18[address] RoadXtremIOblin [place] [id number] :25 Range: 15-65 :25 Renal Panel (10) Comments: PATIENT WAS FASTINGPERFORMED BY: [employer] Vkcoie1979 [address] RoadDublin [place] [id number] Phosphorus, Serum 4.3 mg/dL (Normal) Range: 2.5-4.5 :25 Thyroxine (T4) Free, Direct, S Comments: PATIENT WAS FASTINGPERFORMED BY: [employer] [address] RoadDublin [place] [id number] T4,Free(Direct) 1.08 ng/dL (Normal) Range: 0.82-1.77 : TSH 2.980 {uIU/mL} Comments: PATIENT WAS FASTINGPERFORMED BY: [employer] Mgvxpj8[address] RoadDublin [place] [id number] 25 (Normal) Range: 0.450-4.500 : Vitamin D, 25-Hydroxy 37.1 ng/mL (Normal) Comments: PATIENT WAS FASTINGPERFORMED BY: Obihai TechnologyAtlantiCare Regional Medical Center, [facility] CampusYawzmy9261 [facility] [id number] 25 Range: 30.0-100.0 Comments: Vitamin D deficiency has been defined by the [place] of[place]icine and an Endocrine Society practice guideline as alevel of serum 25-OH vitamin D less than 20 ng/mL (1,2).The Endocrine Society went on to further define vitamin Dinsufficiency as a level between 21 and 29 ng/mL (2).1. IOM ([place] of Medicine). 2010. Dietary reference intakes for calcium and D. [place]: The National Academies Press.2. Mira MF, Rosette LOPEZ, Tommy SWAIN, et al. Evaluation, treatment, and prevention of vitamin D deficiency: an Endocrine Society clinical practice guideline. JCEM. 2010; 96(7):1911-30. :25 CBC W/AUTO DIFF WBC (14746) Comments: PATIENT WAS FASTINGPERFORMED BY: [employer] Cgpgce5018 [facility] [id number] Immature Grans (Abs) 0.0 {x10E3/uL} (Normal) Range: [...] COMPREHENSIVE Comments: PATIENT WAS FASTINGPERFORMED BY: [facility] Qwdzur8604 [facility] [id number]; non- emergent till apt (43279) ALT (SGPT) 10 [iU]/L (Normal) Range: 0-32 [...] mg/dL (Abnormal) Range: 65-99 :25 LIPID PANEL (59768) Comments: PATIENT WAS FASTINGPERFORMED BY: [facility]6370 [facility] [id number] LDL/HDL Ratio 0.9 {ratio_units} (Normal) Range: 0.0-3.2 [...] (Normal) Range: 100-199 :54 HgA1C , Office (60046) HgA1C , Office 6.6 % (Normal) Range: 4.6 - 7.1 70-Xyk-495912:1 Magnesium, Serum 2.1 mg/dL (Normal) Comments: PATIENT WAS FASTINGPERFORMED BY: [facility]6370 [facility] [id number] 2 Range: 1.6-2.3 26-Lto-754730:12 Microalb/Creat Ratio, Randm Ur Comments: PATIENT WAS FASTINGPERFORMED BY: [facility]6370 [facility] [id number] Microalb/Creat Ratio 1863.4 {mg/g_creat} (Abnormal) Range: 0.0-30.0 Microalbumin, Urine 1416.2 ug/mL (Normal) Comments: Results confirmed ondilution. Creatinine, Urine 76.0 mg/dL (Normal) 99-Gzi-424209:12 Microscopic Examination Comments: PATIENT WAS FASTINGPERFORMED BY: [facility]6370 [facility] [id number] Bacteria None seen (Normal) Mucus Threads Present (Normal) Cast Type Hyaline casts (Normal) Casts Present {/lpf} (Abnormal) Epithelial Cells (non 0-10 {/hpf} Range: 0 - 10 renal) (Normal) RBC 3-10 {/hpf} Range: 0 - 2 (Abnormal) WBC 6-10 {/hpf} Range: 0 - 5 (Abnormal) PTH, Intact 36 pg/mL (Normal) Comments: PATIENT WAS FASTINGPERFORMED BY: [employer]6370 PlayerizeKindred Hospital [facility] [id number] 0:12 Range: 15-65 Vitamin D, 25-Hydroxy 42.9 ng/mL (Normal) Comments: PATIENT WAS FASTINGPERFORMED BY: [employer]70 PlayerizeKindred Hospital [facility] [id number] 0:12 Range: 30.0-100.0 Comments: Vitamin D deficiency has been defined by the [place] ofPrem[facility] Hospitalcine and an Endocrine Society practice guideline as alevel of serum 25-OH vitamin D less than 20 ng/mL (1,2).The Endocrine Society went on to further define vitamin Dinsufficiency as a level between 21 and 29 ng/mL (2).1. IOM ([place] of Medicine). 2010. Dietary reference intakes for calcium and D. [place]: The National Academies Press.2. Mira MF, Rosette NC, Tommy SWAIN, et al. Evaluation, treatment, and prevention of vitamin D deficiency: an Endocrine Society clinical practice guideline. JCEM. 2010; 96(7):1911-30. 36-Bnf-996758:12 URINALYSIS, W/ MICRO (54754) Comments: PATIENT WAS FASTINGPERFORMED BY: [employer]6370 [facility] [id number] Microscopic Examination See below: (Normal) Comments: Microscopic was indicated and was performed. Nitrite, Urine Negative (Normal) Urobilinogen,Semi-Qn 0.2 mg/dL (Normal) Range: 0.2-1.0 Bilirubin Negative (Normal) Occult Blood Negative (Normal) Ketones Negative (Normal) Glucose Negative (Normal) Protein 4+ (Abnormal) WBC Esterase Trace (Abnormal) Appearance Clear (Normal) Urine-Color Yellow (Normal) pH 6.0 (Normal) Range: 5.0-7.5 [address] [place] 1.015 (Normal) Range: 1.005-1.030 81-Mgu-332339:12 CBC W/AUTO DIFF WBC (47948) Comments: PATIENT WAS FASTINGPERFORMED BY: Obihai TechnologyAtlantiCare Regional Medical Center, [facility] CampusJammvc3662 [facility] [id number] Immature Grans (Abs) 0.0 {x10E3/uL} (Normal) Range: [...] 3.77-5.28 WBC 6.2 {x10E3/uL} (Normal) Range: 3.4-10.8 08-Stw-238994:12 METABOLIC PANEL, COMPREHENSIVE Comments: PATIENT WAS FASTINGPERFORMED BY: [facility]6370 [facility] [id number] (72062) ALT (SGPT) 14 [iU]/L (Normal) Range: 0-32 [...] Glucose, Serum 154 mg/dL (Abnormal) Range: 65-99 90-Str-391085:12 LIPID PANEL (35484) Comments: PATIENT WAS FASTINGPERFORMED BY: LabCoAtlantiCare Regional Medical Center, [facility] CampusXxffzg6123 [facility] [id number] LDL/HDL Ratio 0.7 {ratio_units} (Normal) Range: 0.0-3.2 Comments: LDL/HDL Ratio Men Women 1/2 Avg.Risk 1.0 1.5 Av g.Risk 3.6 3.2 2X Avg.Risk 6.2 5.0 3X Avg.Risk 8.0 6.1 LDL Cholesterol Calc 49 mg/dL (Normal) Range: 0-99 VLDL Cholesterol Cesar 14 mg/dL (Normal) Range: 5-40 HDL Cholesterol 75 mg/dL (Normal) Triglycerides 68 mg/dL (Normal) Range: 0-149 Cholesterol, Total 138 mg/dL (Normal) Range: 100-199 69-Jtc-325764:50 HgA1C , Office (87289) HgA1C , Office 6.7 % (Normal) Range: 4.6 - 7.1 23-Ndw-579361:36 VITAMIN B-12 (CYANOCOBALAMIN) Comments: PATIENT WAS FASTINGPERFORMED BY: [facility]6370 [facility] [id number] (20696) Vitamin B12 802 pg/mL (Normal) Range: 211-946 11-Ymp-502752:36 LIPID PANEL (92059) Comments: PATIENT WAS FASTINGPERFORMED BY: [facility]6370 [facility] [id number] LDL/HDL Ratio 0.8 {ratio_units} (Normal) Range: 0.0-3.2 [...] Cholesterol, Total 161 mg/dL (Normal) Range: 100-199 73-Giw-663334:36 LDH (LD) (LACTATE DEHYDROGENASE) Comments: PATIENT WAS FASTINGPERFORMED BY: [facility]6370 [facility] [id number] (93166) LDH 217 [iU]/L (Normal) Range: 119-226 01-Szg-420080:36 CBC W/AUTO DIFF WBC (77055) Comments: PATIENT WAS FASTINGPERFORMED BY: [facility]6370 [facility] [id number] Immature Grans (Abs) 0.0 {x10E3/uL} (Normal) Range: [...] 3.77-5.28 WBC 10.6 {x10E3/uL} (Normal) Range: 3.4-10.8 47-Vlb-520109:36 METABOLIC PANEL, COMPREHENSIVE Comments: PATIENT WAS FASTINGPERFORMED BY: [facility]6370 [facility] [id number] (28102) ALT (SGPT) 15 [iU]/L (Normal) Range: 0-32 [...] Glucose, Serum 137 mg/dL (Abnormal) Range: 65-99 98-Gzy-914418:36 TSH (90477) Comments: PATIENT WAS FASTINGPERFORMED BY: [facility] Fjrhma6788 [facility] [id number] TSH 0.560 {uIU/mL} (Normal) Range: 0.450-4.500 19-Bxn-85650:02 Renal function Panel (52951) Comments: PATIENT WAS FASTINGPERFORMED BY: [facility] Foscyu9333 [facility] [id number] Albumin, Serum 3.7 g/dL (Normal) Range: 3.5-4.8 [...] 137 mg/dL (Abnormal) Range: 65-99 :02 MAGNESIUM (18559) Comments: PATIENT WAS FASTINGPERFORMED BY: [employer]ago - teamwork across global officesKindred Hospital - [facility] [id number] Magnesium, Serum 2.2 mg/dL (Normal) Range: 1.6-2.3 :02 MICROALBUMIN: CREATININE RATIO Comments: PATIENT WAS FASTINGPERFORMED BY: [facility] AlpenaXtremIOKindred Hospital - [facility] [id number] (78856) AND (68961) Microalb/Creat Ratio 2038.7 {mg/g_creat} (Abnormal) Range: 0.0-30.0 Microalbumin, Urine 1223.2 ug/mL (Normal) Comments: Results confirmed ondilution. Creatinine, Urine 60.0 mg/dL (Normal) :02 CBC WITH MANUAL DIFF Comments: PATIENT WAS FASTINGPERFORMED BY: [facility] AlpenaXtremIOKindred Hospital - [facility] [id number] Information: [id number] (08226) Immature Grans (Abs) 0.0 {x10E3/uL} (Normal) Range: [...] {x10E3/uL} (Normal) Range: 3.4-10.8 :02 HGB A1C (37304) Comments: PATIENT WAS FASTINGPERFORMED BY: [employer]6370 [facility] [id number] Hemoglobin A1c 6.4 % (Abnormal) Range: 4.8-5.6 Comments: . Pre-diabetes: 5.7 - 6.4 Diabetes: >6.4 Glycemic control for adults with diabetes: <7.0 :02 Lipid Panel (86247) Comments: PATIENT WAS FASTINGPERFORMED BY: [employer] Yrvqtt1872 [facility] [id number] LDL/HDL Ratio 1.1 {ratio_units} (Normal) Range: 0.0-3.2 [...] Cholesterol, Total 160 mg/dL (Normal) Range: 100-199 52-Vhj-650292:03 HgA1C , Office (03446) HgA1C , Office 6.1 % (Normal) Range: 4.6 - 7.1 :24 CBC W/AUTO DIFF WBC Comments: PATIENT WAS FASTINGPERFORMED BY: LabCoAtlantiCare Regional Medical Center, [facility] CampusNaxexl5035 [facility] [id number] Information: [id number] (58379) Immature Grans (Abs) 0.0 {x10E3/uL} (Normal) Range: [...] CREATININE RATIO Comments: PATIENT WAS FASTINGPERFORMED BY: Obi[employer] TechnologyAtlantiCare Regional Medical Center, [facility] CampusAaflhn3633 [facility] [id number] (82673) AND (50928) Microalb/Creat Ratio 1223.8 {mg/g_creat} (Abnormal) Range: 0.0-30.0 Microalbumin, Urine 1012.1 ug/mL (Abnormal) Range: 0.0-17.0 Comments: Results confirmed ondilution. Creatinine, Urine 82.7 mg/dL (Normal) Range: 15.0-278.0 :24 METABOLIC PANEL, COMPREHENSIVE Comments: PATIENT WAS FASTINGPERFORMED BY: [employer] TechnologyGila Regional Medical CenterEdsrhl0827 [facility] [id number] (92676) ALT (SGPT) 12 [iU]/L (Normal) Range: 0-32 [...] mg/dL (Abnormal) Range: 65-99 :24 LIPID PANEL (61233) Comments: PATIENT WAS FASTINGPERFORMED BY: [facility] Anyslr3673 [facility] [id number] LDL/HDL Ratio 1.1 {ratio_units} (Normal) Range: 0.0-3.2 [...] 100-199 :30 CBC W/Diff, Automated Comments: [facility] [address] [place], [place], [phone] Absolute Lymph 0.83 {X10_3/ul} (Normal) Range: 0.83-4.51 [...] Range: 4.4-11.0 :30 Hemoglobin A1c Comments: [facility] [address] [place], [place], [phone](636) HGB A1C 6.1 % (Normal) Range: 4.2-6.3 :30 Magnesium Comments: [facility] Muh[address]ag[address] [place], [place], [phone](461) MG 1.8 mg/dL (Normal) Range: 1.8-2.4 :30 Protein+Creatinine Ratio,Urine Comments: [facility] V[address]orldex[address] [place], [place], [phone](883) PROT:CRE RATIO 2121 {mg/g_CRE} (Abnormal) Range: 0-200 PROTEIN,UR.RAN. 164.2 mg/dL (Abnormal) UR CREAT 77.40 mg/dL (Normal) :30 Renal Profile Comments: [facility] [address]esml[address] [place], [place], [phone](397) CO2 27.0 mmol/L (Normal) Range: 21.0-32.0 CL [...] 126 mg/dLsuggests DIABETES MELLITUS per A.D.A. criteria. 02-Drm-26176:00 24 HR UR Creatinine Clearance Comments: [facility] Ueuseyhrmi7009 [facility] [place], [place], [phone] CREAT CLEARANCE 24 ml/min (Abnormal) Range: 100-200 URINE CREAT 20.6 mg/dL (Normal) EST GFR - AA 38 mL/min (Abnormal) Comments: GFR Calc EST GFR 31 mL/min (Abnormal) Comments: Non- GFR Calc SERUM CREAT 1.7 mg/dL (Abnormal) Range: 0.6-1.0 UR TOTAL VOLUME 2800 mL (Normal) UR COLLECT TIME 24.0 {HOURS} (Normal) 64-Vye-05815:00 Protein, Urine 24HR Comments: [facility] Bdcutfyduj6131 [facility] [place], [address] 24hr UR PROTEIN 1178.8 {mg/24HR} (Abnormal) URINE PROTEIN 42.1 mg/dL (Abnormal) UR TOTAL VOLUME 2800 mL (Normal) UR COLLECT TIME 24.0 {HOURS} (Normal) 1-Dfp-450444:29 Metabolic Panel, Basic Comments: PATIENT NOT FASTINGPERFORMED BY: [employer] MediaCorewell [facility]6370 [facility] [id number] Information: [id number] (25348) Calcium, Serum 9.3 mg/dL (Normal) Range: 8.7-10.3 [...] Basic Comments: tuesday; PATIENT NOT FASTINGPERFORMED BY: Obihai TechnologyAtlantiCare Regional Medical Center, [facility] CampusSwriuj6562 [facility] [id number] Information: [id number] (02191) Calcium, Serum 9.0 mg/dL (Normal) Range: 8.7-10.3 [...] Glucose, Serum 149 mg/dL (Abnormal) Range: 65-99 81-Fsk-079082:32 HgA1C , Office (26113) HgA1C , Office 6.2 % (Normal) Range: 4.6 - 7.1 :31 Rapid Strep Test, Office (88106) Comments: neg Rapid Strep Test, Office Negative (Normal) :06 THROAT CULTURE (41103) Comments: PATIENT NOT FASTINGPERFORMED BY: CB [facility] Gaasyk86[address] RoadDublin [place] [id number] Information: [id number] Result 1 RRF (Normal) Comments: Routine respiratory luis Upper Respiratory Culture Final report (Normal) :52 TSH (29643) Comments: PATIENT WAS FASTINGPERFORMED BY: [facility] Vmitxt2864 [address] RoadDublin [place] [id number] TSH 2.190 {uIU/mL} (Normal) Range: 0.450-4.500 :52 Vitamin D Hydroxy (95617) Comments: PATIENT WAS FASTINGPERFORMED BY: CB [facility] Lhsixk6784 [address] RoadDublin [place] [id number] Vitamin D, 25-Hydroxy 43.8 ng/mL (Normal) Range: 30.0-100.0 Comments: Vitamin D deficiency has been defined by the [place] ofMedicine and an Endocrine Society practice guideline as alevel of serum 25-OH vitamin D less than 20 ng/mL (1,2).The Endocrine Society went on to further define vitamin Dinsufficiency as a level between 21 and 29 ng/mL (2).1. IOM ([place] of Medicine). 2010. Dietary reference intakes for calcium and D. [place]: The National Academies Press.2. Mira MF, Rosette NC, Tommy SWAIN, et al. Evaluation, treatment, and prevention of vitamin D deficiency: an Endocrine Society clinical practice guideline. JCEM. 2010; 96(7):1911-30. :52 LIPID PANEL (93960) Comments: PATIENT WAS FASTINGPERFORMED BY: CB [facility] Vadpjv9915 [address] RoadDublin [place] [id number] LDL/HDL Ratio 1.3 {ratio_units} (Normal) Range: 0.0-3.2 [...] auto diff Comments: PATIENT WAS FASTINGPERFORMED BY: LabCoAtlantiCare Regional Medical Center, [facility] CampusAifchv7306 [facility] [id number] Information: [id number] (68624) Immature Grans (Abs) 0.0 {x10E3/uL} (Normal) Range: [...] PANEL, COMPREHENSIVE Comments: PATIENT WAS FASTINGPERFORMED BY: LabCoAtlantiCare Regional Medical Center, [facility] CampusFnnhnb0939 [facility] [id number] (48972) ALT (SGPT) 19 [iU]/L (Normal) Range: 0-32 [...] Glucose, Serum 127 mg/dL (Abnormal) Range: 65-99 5-Gcl-027665:08 HgA1C , Office (45771) HgA1C , Office 6.4 % (Normal) Range: 4.6 - 7.1 :00 Creatinine Clearance Comments: PATIENT NOT FASTINGPERFORMED BY: [facility]6370 [facility] [id number] Information: [id number] S TART Creatinine Clearance 33 mL/min (Abnormal) [...] Qn, 24-Hr Comments: PATIENT NOT FASTINGPERFORMED BY: [facility]CoAtl[facility] CampusAeesxf7757 [facility] [id number] Urine Prot,24hr calculated 1309.8 {mg/24_hr} (Abnormal) Range: 30.0-150.0 Protein,Total,Urine 70.8 mg/dL (Abnormal) Range: 0.0-15.0 :01 CBC W/Diff, Automated Comments: Test performed at:[facility] Xfq[address]mb[address]to[address] [place] [address] Absolute Neut 3.1 {X10_3/uL} (Normal) [...] 4.4-11.0 :01 Magnesium Comments: Test performed at:[facility] Frrlcra[address] [place] [address] MG 2.0 mg/dL (Normal) Range: 1.8-2.4 :01 Protein+Creatinine Ratio,Urine Comments: Test performed at:[facility] [address] [place] [address] PROT:CRE RATIO 2232 {mg/g_CRE} (Abnormal) Range: 0-200 PROTEIN,UR.RAN. 160.3 mg/dL (Abnormal) UR CREAT 71.8 mg/dL (Normal) :01 Renal Profile Comments: Test performed at:[facility] [address] [place] [address] CO2 32.0 mmol/L (Normal) Range: 21.0-32.0 CL [...] mg/dL (Normal) Range: 70-110 :08 LIPID PANEL (18109) Comments: PATIENT WAS FASTINGPERFORMED BY: Obihai TechnologyAtlantiCare Regional Medical Center, [facility] CampusZbjxjh0947 [facility] [id number] LDL/HDL Ratio 1.0 {ratio_units} (Normal) Range: 0.0-3.2 [...] METABOLIC PANEL, Comments: PATIENT WAS FASTINGPERFORMED BY: [facility]6370 [facility] [id number] Information: [id number] COMPREHENSIVE (02997) ALT (SGPT) 29 [iU]/L (Normal) Range: 0-32 [...] (Abnormal) Range: 65-99 :59 HgA1C , Office (28824) HgA1C , Office 6.5 % (Normal) Range: 4.6 - 7.1 :54 CBC W/AUTO DIFF WBC Comments: PATIENT WAS FASTINGPERFORMED BY: [facility]CoAtl[facility] CampusLdvgml6510 [facility] [id number] Information: [id number] (31121) Immature Grans (Abs) 0.0 {x10E3/uL} (Normal) Range: [...] COMPREHENSIVE Comments: PATIENT WAS FASTINGPERFORMED BY: LabCo Andzkt5084 [facility] [id number]; non- emergent till apt (24049) ALT (SGPT) 13 [iU]/L (Normal) Range: 0-32 [...] mg/dL (Abnormal) Range: 65-99 :54 LIPID PANEL (83046) Comments: PATIENT WAS FASTINGPERFORMED BY: [facility]CoAtl[facility] CampusVprege4241 [facility] [id number] LDL/HDL Ratio 1.1 {ratio_units} (Normal) Range: 0.0-3.2 [...] (Normal) Range: 100-199 :29 HgA1C , Office (42148) HgA1C , Office 6.6 % (Normal) Range: 4.6 - 7.1 :12 CBC W/Diff, Automated Comments: Test performed at:[facility] [address] [place], [place] [id number] ; handled by Dr. Santana Absolute Lymph [...] 4.4-11.0 :12 Magnesium Comments: Test performed at:[facility] [address] [place] [address] MG 2.0 mg/dL (Normal) Range: 1.8-2.4 :12 Microalb:Creat Ratio,Random UR Comments: Test performed at:[facility] [address] [place] [address] ; Dr. Angelo LING:CREAT 1483.0 {mg/g_CRE} (Abnormal) MICROALBUMIN,UR 918.0 mg/L (Normal) UR CREAT 61.9 mg/dL (Normal) :12 Renal Profile Comments: Test performed at:[facility] M[address]vdvlnu[address] [place] [address] CO2 29.0 mmol/L (Normal) Range: 21.0-32.0 CL [...] 126 mg/dLsuggests DIABETES MELLITUS per A.D.A. criteria. 11-Zcq-174557:20 LIPID PANEL (35068) Comments: PATIENT WAS FASTINGPERFORMED BY: Fracturelin6370 [facility] [id number] LDL/HDL Ratio 1.0 {ratio_units} (Normal) Range: 0.0-3.2 [...] Cholesterol, Total 151 mg/dL (Normal) Range: 100-199 37-Cuh-568710:20 METABOLIC PANEL, Comments: PATIENT WAS FASTINGPERFORMED BY: [facility]CoAtl[facility], [facility] CampusRvtnqr9487 [facility] [id number] Information: [id number] COMPREHENSIVE (54156) ALT (SGPT) 16 [iU]/L (Normal) Range: 0-32 [...] Glucose, Serum 148 mg/dL (Abnormal) Range: 65-99 10-Zjk-815879:21 CREATININE CLEARANCE Comments: PATIENT WAS FASTINGPERFORMED BY: [facility]CoAtl[facility], [facility] CampusKzjbyf7579 [facility] [id number] Information: [id number] START 04/02/14@9AM FINISH 04/03/14 6:00 AM (28055) Creatinine Clearance 42 mL/min (Abnormal) Range: 88-128 Comments: The above range is based on 1.73 square meter average body surfacearea. Creatinine, Ur 24hr 812.3 {mg/24_hr} (Normal) Range: 800.0-1800.0 Creatinine, Urine 28.5 mg/dL (Normal) Range: 15.0-278.0 eGFR If Africn Am 45 mL/min/1.73 (Abnormal) eGFR If NonAfricn Am 39 mL/min/1.73 (Abnormal) Creatinine, Serum 1.33 mg/dL (Abnormal) Range: 0.57-1.00 52-Wae-189396:21 Total Protein,24 Hour Urine Comments: PATIENT WAS FASTINGPERFORMED BY: [facility]6370 [facility] [id number] (70740) Prot,24hr calculated 1559.0 {mg/24_hr} (Abnormal) Range: 30.0-150.0 Protein,Total,Urine 54.7 mg/dL (Abnormal) Range: 0.0-15.0 :57 LIPID PANEL (82712) Comments: PATIENT WAS FASTINGPERFORMED BY: [facility]6370 [facility] [id number] LDL/HDL Ratio 1.1 {ratio_units} (Normal) Range: 0.0-3.2 [...] MANUAL DIFF Comments: PATIENT WAS FASTINGPERFORMED BY: [facility]6370 [facility] [id number] Information: [id number] (01770) Immature Grans (Abs) 0.0 {x10E3/uL} (Normal) Range: [...] PANEL, COMPREHENSIVE Comments: PATIENT WAS FASTINGPERFORMED BY: [facility]CoAtl[facility], [facility] CampusRalpci2343 [facility] [id number] (77012) ALT (SGPT) 10 [iU]/L (Normal) Range: 0-32 [...] Result Units: mg/dL AdultPerformed at: - [facility] [address] [id number] Director: Yousuf Bernardo PhD, Phone: [phone] C4 37 (Abnormal) Range: 9-36 0 [...] MANUAL DIFF Comments: PATIENT WAS FASTINGPERFORMED BY: [facility]6370 [facility] [id number] Information: [id number] (53947) Immature Grans (Abs) 0.0 {x10E3/uL} (Normal) Range: [...] PANEL, COMPREHENSIVE Comments: PATIENT WAS FASTINGPERFORMED BY: [facility]6370 [facility] [id number] (88538) ALT (SGPT) 16 [iU]/L (Normal) Range: 0-32 [...] Glucose, Serum 132 mg/dL (Abnormal) Range: 65-99 21-Dnf-407266:53 CREATININE CLEARANCE Comments: PATIENT NOT FASTINGPERFORMED BY: EVE LabCoAtlantiCare [facility], [facility] CampusHgxtyi7964 [facility] [id number] Information: [id number] START 10/30/13@8AM F INISH 10/31/13@8AM 2650ML (15877) Creatinine Clearance 44 mL/min (Abnormal) Range: 88-128 Comments: The above range is based on 1.73 square meter average body surfacearea. Creatinine, Ur 24hr 877.2 {mg/24_hr} (Normal) Range: 800.0-1800.0 Creatinine, Urine 33.1 mg/dL (Normal) Range: 15.0-278.0 eGFR If Africn Am 44 mL/min/1.73 (Abnormal) eGFR If NonAfricn Am 38 mL/min/1.73 (Abnormal) Creatinine, Serum 1.37 mg/dL (Abnormal) Range: 0.57-1.00 20-Njy-742874:53 Total Protein,24 Hour Urine Comments: PATIENT NOT FASTINGPERFORMED BY: [facility] [id number] (51467) Prot,24hr calculated 3458.3 {mg/24_hr} (Abnormal) Range: 30.0-150.0 Protein,Total,Urine 130.5 mg/dL (Abnormal) Range: 0.0-15.0 80-Trw-081543:31 HgA1C , Office (50291) HgA1C , Office 6.4 % (Normal) Range: 4.6 - 7.1 51-Onl-722372:27 Microscopic Examination Comments: PATIENT WAS FASTINGPERFORMED BY: [facility] [id number] Bacteria Few (Normal) Mucus Threads Present (Normal) Epithelial Cells (non renal) 0-10 {/hpf} (Normal) Range: 0 - 10 RBC 3-10 {/hpf} (Abnormal) Range: 0 - 2 WBC 6-10 {/hpf} (Abnormal) Range: 0 - 5 :32 LIPID PANEL (88665) Comments: PATIENT WAS FASTINGPERFORMED BY: [facility] [id number] LDL/HDL Ratio 1.0 {ratio_units} (Normal) Range: 0.0-3.2 [...] Comments: PATIENT WAS FASTINGPERFORMED BY: CB [facility] MyEveTabDublin [place] [id number] (42112) AND (63345) Microalb/Creat Ratio 1998.9 {mg/g_creat} (Abnormal) Range: 0.0-30.0 Creatinine, Urine 73.4 mg/dL (Normal) Range: 15.0-278.0 Microalbumin, Urine 1467.2 ug/mL (Abnormal) Range: 0.0-17.0 :32 URINALYSIS, W/ MICRO (27743) Comments: PATIENT WAS FASTINGPERFORMED BY: [facility]6370 [facility] [id number] Microscopic Examination See below: (Normal) Comments: Microscopic was indicated and was performed. Nitrite, Urine Negative (Normal) Urobilinogen,Semi-Qn 0.2 mg/dL (Normal) Range: 0.0-1.9 Bilirubin Negative (Normal) Occult Blood Trace (Abnormal) Ketones Negative (Normal) Glucose Negative (Normal) Protein 3+ (Abnormal) WBC Esterase Trace (Abnormal) Appearance Clear (Normal) Urine-Color Yellow (Normal) pH 6.5 (Normal) Range: 5.0-7.5 [address] [place] 1.015 (Normal) Range: 1.005-1.030 :32 CBC WITH MANUAL DIFF Comments: PATIENT WAS FASTINGPERFORMED BY: [facility]6370 [facility] [id number] Information: [id number] (39859) Immature Grans (Abs) 0.0 {x10E3/uL} (Normal) Range: [...] PANEL, COMPREHENSIVE Comments: PATIENT WAS FASTINGPERFORMED BY: [facility]CoAtl[facility] CampusQavcsf7935 [facility] [id number] (36315) ALT (SGPT) 16 [iU]/L (Normal) Range: 0-32 [...] Glucose, Serum 135 mg/dL (Abnormal) Range: 65-99 97-Mzi-55763:32 VITAMIN B-12 (CYANOCOBALAMIN) Comments: PATIENT WAS FASTINGPERFORMED BY: Major Aide LabEasy PairingsSnhjpv5921 [facility] [id number] (47246) Vitamin B12 >1999 pg/mL (Abnormal) Range: 211-946 02-Wnv-602741:01 HgA1C , Office (73942) HgA1C , Office 6.4 % (Normal) Range: 4.6 - 7.1 :37 METABOLIC PANEL, COMPREHENSIVE Comments: PATIENT WAS FASTINGPERFORMED BY: Major Aide [facility] Armdvh5941 [facility] [id number] (19662) ALT (SGPT) 12 [iU]/L (Normal) Range: 0-32 [...] (Abnormal) Range: 65-99 :37 Vitamin D Hydroxy (39882) Comments: PATIENT WAS FASTINGPERFORMED BY: [employer]70 [facility] [id number] Vitamin D, 25-Hydroxy 47.4 ng/mL (Normal) Range: 30.0-100.0 Comments: Vitamin D deficiency has been defined by the [place] ofPrem[facility] Health [facility] Hospitalcine and an Endocrine Society practice guideline as alevel of serum 25-OH vitamin D less than 20 ng/mL (1,2).The Endocrine Society went on to further define vitamin Dinsufficiency as a level between 21 and 29 ng/mL (2).1. IOM ([place] of Medicine). 2010. Dietary reference intakes for calcium and D. [place]: The National Academies Press.2. Mira MF, Rosette LOPEZ, Tommy SWAIN, et al. Evaluation, treatment, and prevention of vitamin D deficiency: an Endocrine Society clinical practice guideline. JCEM. 2010; 96(7):1911-30. :37 LIPID PANEL (32988) Comments: PATIENT WAS FASTINGPERFORMED BY: [employer] Evqecm3097 [facility] [id number] LDL/HDL Ratio 1.2 {ratio_units} (Normal) Range: 0.0-3.2 [...] Comments: PATIENT WAS FASTINGPERFORMED BY: EVE [facility] Kebgej8850 [facility] [id number] Information: [id number] (19239) Immature Grans (Abs) 0.0 {x10E3/uL} (Normal) Range: [...] PATIENT NOT FASTINGPERFORMED BY: EVE LabCore[facility]6370 [facility] [id number] Information: ADD [id number] AND DRAW FEE 99 6660 VOLUME 2600 164LBS 5' '3 Urine Prot,24hr calculated 920.4 {mg/24_hr} Range: 30.0-150.0 (Abnormal) Protein,Total,Urine 35.4 mg/dL Range: 0.0-15.0 (Abnormal) : Written Authorization WAR (Normal) Comments: PATIENT NOT FASTINGPERFORMED BY: LabCore[facility]6370 [facility] [id number] Comments: Written Authorization Received.Authorization received from Chiqui BRICEÑO LPN [id number] by Marleen Sharma :52 Metabolic Panel, Basic Comments: PATIENT NOT FASTINGPERFORMED BY: [place] 7961670 [facility] [id number] Information: ADD [id number] AND DRAW FEE 99 6660 VOLUME 2600 164LBS 5' '3 (17658) Calcium, Serum 9.7 mg/dL (Normal) Range: 8.6-10.2 [...] mg/dL (Abnormal) Range: 65-99 :52 CREATININE CLEARANCE (85676) Comments: PATIENT NOT FASTINGPERFORMED BY: [facility]6370 [facility] [id number] Creatinine Clearance 46 mL/min (Abnormal) Range: 88-128 Comments: The above range is based on 1.73 square meter average body surfacearea. Creatinine, Ur 24hr 899.6 {mg/24_hr} (Normal) Range: 800.0-1800.0 Creatinine, Urine 34.6 mg/dL (Normal) Range: 15.0-278.0 :52 24 hour urine for Protein Comments: PATIENT NOT FASTINGPERFORMED BY: Obihai TechnologyAtlantiCare Regional Medical Center, [facility] CampusHxkdbt4738 [facility] [id number] (13465) Microalb/Creat Ratio 695.4 {mg/g_creat} (Abnormal) Range: 0.0-30.0 Microalbumin, Urine 240.6 ug/mL (Abnormal) Range: 0.0-17.0 :13 HgA1C , Office (91603) HgA1C , Office 6.3 % (Normal) Range: 4.6 - 7.1 :01 Blood Glucose , Office (51828) Blood Glucose , Office 162 (Normal) 41-Vvy-342695:02 Microscopic Examination Comments: PATIENT NOT FASTINGPERFORMED BY: Obihai TechnologyAtlantiCare Regional Medical Center, [facility] CampusVlpqem4887 [facility] [id number] Bacteria Few (Normal) Mucus Threads Present (Normal) [...] Hebert M.D.October 19, 2012 at 2:42:14 PM [id number] Signed GP/GP If you are the referring physician and would like to consult [facility] theradiologist who provided this interpretation, please contact Yasmany Pond at [phone]. If this radiologist is unavailable, youwill be directed to another radiologist to assist. If y ou are a patient with a question regarding this report, pleasecontactyour referring physician directly. Professional Interpretation Provided By: [employer], Phone , These documents contain legally protected [...] on 10/19/124 Sign by: Misael Hebert MD 26-Ipt-239023:59 TSH (79924) Comments: PATIENT WAS FASTINGPERFORMED BY: [employer] Wssaak9370 [facility] [id number] TSH 1.230 {uIU/mL} (Normal) Range: 0.450-4.500 43-Htx-963896:59 LIPID PANEL (13517) Comments: PATIENT WAS FASTINGPERFORMED BY: [employer] Lnvejo9192 [facility] [id number] LDL/HDL Ratio 0.5 {ratio_units} (Normal) Range: 0.0-3.2 LDL Cholesterol Calc 47 mg/dL (Normal) Range: 0-99 Cholesterol, Total 149 mg/dL (Normal) Range: 100-199 HDL Cholesterol 91 mg/dL (Normal) Comments: According to ATP-III Guidelines, HDL-C >59 mg/dL is considered anegative risk factor for CHD. Triglycerides 57 mg/dL (Normal) Range: 0-149 VLDL Cholesterol Cesar 11 mg/dL (Normal) Range: 5-40 59-Uci-172129:02 URINALYSIS, W/ MICRO Comments: PATIENT NOT FASTINGPERFORMED BY: [employer] Live [facility] [id number] Information: [id number] (90072) Microscopic Examination See below: (Normal) Nitrite, Urine Negative (Normal) Bilirubin Negative (Normal) Urobilinogen,Semi-Qn 0.2 mg/dL (Normal) Range: 0.0-1.9 Occult Blood Negative (Normal) Ketones Negative (Normal) Glucose Negative (Normal) Protein 3+ (Abnormal) WBC Esterase Negative (Normal) Appearance Clear (Normal) Urine-Color Yellow (Normal) pH 5.5 (Normal) Range: 5.0-7.5 [address] [place] 1.015 (Normal) Range: 1.005-1.030 23-Jui-609837:59 CBC WITH MANUAL DIFF Comments: PATIENT WAS FASTINGPERFORMED BY: [facility]6370 [facility] [id number] Information: [id number] (96957) Immature Grans (Abs) 0.0 {x10E3/uL} (Normal) Range: [...] 3.77-5.28 WBC 4.8 {x10E3/uL} (Normal) Range: 3.4-10.8 43-Ojc-486266:59 METABOLIC PANEL, COMPREHENSIVE Comments: PATIENT WAS FASTINGPERFORMED BY: LabCoAtl[facility] CampusQcyrsk8143 [facility] [id number] (55718) ALT (SGPT) 14 [iU]/L (Normal) Range: 0-32 [...] Glucose, Serum 104 mg/dL (Abnormal) Range: 65-99 5-Hoo-136698:37 HgA1C , Office (20153) HgA1C , Office 6.0 % (Normal) Range: 4.6 - 7.1 2-Fjo-838355:31 CRE CREAT 1.3 mg/dL (Abnormal) Range: 0.6-1.0 [...] Galan M.D.August 09, 2012 at 2:38:03 PM [id number] Signed PV/PV If you are the referring physician and would like to consult with theradiologist who provided this interpretation, please contact Donna Burnett M.D. at [phone]. If this radiologist is unavailable, youwillbe directed to another radiologist to assist. If you are a patient with a question regarding this report, pleasecontactyour referring physician evelyne cowan. Professional Interpretation Provided By: [employer], Phone , These documents contain legally protected [...] 08/09/12 1441 Sign by: Donna Martin MD 66-Axg-008012:31 CBC with manual diff Comments: PATIENT NOT FASTINGPERFORMED BY: [facility] Htxbck5288 [facility] [id number] Information: [id number] (84102) Immature Grans (Abs) 0.0 {x10E3/uL} (Normal) Range: [...] 3.77-5.28 WBC 3.2 {x10E3/uL} (Abnormal) Range: 4.0-10.5 97-Utt-274143:31 Metabolic Panel, Comprehensive Comments: PATIENT NOT FASTINGPERFORMED BY: LabCoAtl[facility]Care [facility] CampusSostpx1600 [facility] [id number] (71618) ALT (SGPT) 19 [iU]/L (Normal) Range: 0-32 [...] mg/dL (Abnormal) Range: 65-99 :31 LIPID PANEL (63474) Comments: PATIENT WAS FASTINGPERFORMED BY: [employer]70 [facility] [id number] LDL/HDL Ratio 0.8 {ratio_units} (Normal) Range: 0.0-3.2 [...] MANUAL DIFF Comments: PATIENT WAS FASTINGPERFORMED BY: BenchPrepAtlantiCare Regional [facility], [facility] CampusPoqerf1315 [facility] [id number] Information: [id number] (03947) Immature Grans (Abs) 0.0 {x10E3/uL} (Normal) Range: [...] PANEL, COMPREHENSIVE Comments: PATIENT WAS FASTINGPERFORMED BY: LabCoAtl[facility]Care [facility] CampusNkmszq5417 [facility] [id number] (14821) ALT (SGPT) 22 [iU]/L (Normal) Range: 0-32 [...] (Abnormal) Range: 65-99 :45 HgA1C , Office (17926) HgA1C , Office 6.1 % (Normal) Range: 4.6 - 7.1 11-Idt-192145:16 CRE CREAT 1.1 mg/dL (Abnormal) Range: 0.6-1.0 [...] Galan M.D.February 02, 2012 at 5:10:18 PM [id number] Signed PV/PV If you are the referring physician and w sarahild like to consult with theradiologist who provided this interpretation, please contact Donna Burnett M.D. at [phone]. If this radiologist is unavailable, youwillbe directed to another radiol ogist to assist. If you are a patient with a question regarding this report, pleasecontactyour referring physician directly. Professional Interpretation Provided By: [employer], Phone ,Fa x [phone] These documents contain legally protected and confidential [...] on 02/02/121713 S ign by: Mario MANN,Donna 03-Ybt-733010:16 DEXA BONE DENSITY STUDY (HP) Radiology Report [...] Coronel M.D.January 20, 2012 at 2:43:46 PM [id number] Signed KERA/KERA If you ar e the [...] 01/20/12 1447 Sign by: David Coronel MD 45-Fjk-741583:15 BILAT SCRN DIGITAL & CAD Radiology Report [...] Coronel M.D.January 20, 2012 at 1:20:11 PM [id number] Signed KERA/KERA If you are the referring physician and would like to consult with theradiologist who provided this interpretation, please contact Yasmany Parnell at . If this radiologist is unavailable,youwill be directed to another radiologist to assist. If you are a patient with a question regarding this report, pleasecontactyour referring physician directly. Professional Interpretation Provided By: [employer], Phone , These documents contain legally protected [...] 01/20/12 1324 Sign by: David Coronel MD 8-Jvl-337958:56 PELVIC (NON ) Radiology Report See Note [...] Vuong M.D.January 10, 2012 at 8:39:09 PM [id number] Signed JOHNNY/JOHNNY If you are the referring physician and would like to consult with theradiologist who provided this inte rpretation, please contact Radha Vuong M.D. at [phone]. If this radiologist is unavailable, you will bedirected to another radiologist to assist. If you are a patient with a question regarding this r eport, pleasecontactyour referring physician directly. Professional Interpretation Provided By: [employer], Phone , PROCEDURE: ULTRASOUND OF THE FEMALE [...] Vuong M.D.January 10, 2012 at 8:40:07 PM [id number] Signed JOHNNY/JOHNNY If you are the referring physician and would like to consult with theradiologist who provided this interpretation, please contact Radha Vuong M.D. at [phone]. If this radiologist is unavailable, you will bedirected to another radiologist to assist. If you are a patient with a question regarding this report, pleasecontactyour referring ph ysician directly. Professional Interpretation Provided By: [employer], Phone , These documents contain legally protected [...] Dictated on 01/10/12 1309 by Nahum VUONG [facility] ribed on 01/11/12 1113 by ITS IMPORTSign by RADHA VUONG MD on 01/11/12 1114 Sign by: RADHA VUONG MD :35 MICROALBUMIN: CREATININE RATIO Comments: PATIENT WAS FASTINGPERFORMED BY: Fracturelin6370 [facility] [id number] (15881) AND (24460) Microalb/Creat Ratio 829.4 {mg/g_creat} (Abnormal) Range: 0.0-30.0 Microalbumin, Urine 437.1 ug/mL (Abnormal) Range: 0.0-17.0 Creatinine, Urine 52.7 mg/dL (Normal) Range: 15.0-278.0 :35 CBC WITH MANUAL DIFF Comments: PATIENT WAS FASTINGPERFORMED BY: BenchPrepAtlantiCare Regional Medical Center, [facility] CampusRxmdyx3876 [facility] [id number] Information: [id number] (70647) Immature Grans (Abs) 0.0 {x10E3/uL} (Normal) Range: [...] 3.77-5.28 WBC 3.7 {x10E3/uL} (Abnormal) Range: 4.0-10.5 97-Plq-40570:35 METABOLIC PANEL, COMPREHENSIVE Comments: PATIENT WAS FASTINGPERFORMED BY: LabCoAtlantiCare [facility], [facility] CampusSqyzbo4225 [facility] [id number] (23267) ALT (SGPT) 15 [iU]/L (Normal) Range: 0-32 [...] mg/dL (Abnormal) Range: 65-99 :35 LIPID PANEL (50961) Comments: PATIENT WAS FASTINGPERFORMED BY: [employer]ago - teamwork across global officesKindred Hospital - [facility] [id number] LDL/HDL Ratio 0.9 {ratio_units} (Normal) Range: 0.0-3.2 LDL Cholesterol Calc 72 mg/dL (Normal) Range: 0-99 HDL Cholesterol 83 mg/dL (Normal) Comments: According to ATP-III Guidelines, HDL-C >59 mg/dL is considered anegative risk factor for CHD. VLDL Cholesterol Cesar 18 mg/dL (Normal) Range: 5-40 Triglycerides 90 mg/dL (Normal) Range: 0-149 Cholesterol, Total 173 mg/dL (Normal) Range: 100-199 :15 HgA1C , Office (33940) HgA1C , Office 6.2 % (Normal) Range: 4.6 - 7.1 :30 CBC WITH MANUAL DIFF Comments: PATIENT WAS FASTINGPERFORMED BY: [employer] - teamwork across global officesKindred Hospital - [place] [id number] Information: [id number] (09896) Immature Grans (Abs) 0.0 {x10E3/uL} (Normal) Range: [...] 3.77-5.28 WBC 4.2 {x10E3/uL} (Normal) Range: 4.0-10.5 39-Gmw-06028:30 METABOLIC PANEL, COMPREHENSIVE Comments: PATIENT WAS FASTINGPERFORMED BY: LabCoAtlantiCare [facility] Medical Center, [facility] CampusPphxul1451 [facility] [id number] (32846) ALT (SGPT) 19 [iU]/L (Normal) Range: 0-40 [...] mg/dL (Abnormal) Range: 65-99 :30 LIPID PANEL (48032) Comments: PATIENT WAS FASTINGPERFORMED BY: LabCoAtlantiCare [facility] Medical [facility], [facility] CampusTjgvxk7439 [facility] [id number] LDL/HDL Ratio 0.9 {ratio_units} (Normal) Range: 0.0-3.2 [...] note reference interval change :48 Rapid Flu (69290 x 2) Influenza A Ag negative (Normal) [...] redmond M.D.November 05, 2011 at 3:25:08 PM [id number] Signed GP/GP If you are the referring physician and would like to consult with theradiologist who provided this interpretation, please contact Yasmany Pond at [phone]. If this radiologist is unavailable, youwill be directed to another radiologist to assist. If you are a patient with a question regarding this report, ple [facility] centercontactyour referring physician directly. Professional Interpretation Provided By: [employer], Phone , These documents contain legally protected [...] redmond M.D.November 05, 2011 at 3:25:08 PM [id number] Signed GP/GP If you are the referring physician and would like to consult with theradiologist who provided this interpretation, please contact Yasmany Pond at [phone]. If this radiologist is unavailable, youwill be directed to another radiologist to assist. If you are a patient with a question regarding this report, ple asecontactyour referring physician directly. Professional Interpretation Provided By: [employer], Phone , These documents contain legally protected [...] 11/05/11 1552 Sign by: Misael Hebert MD 18-Teo-997904:20 METABOLIC PANEL, Comments: PATIENT WAS FASTINGPERFORMED BY: LabCoAtlantiCare [facility] CampusLkbsqn2480 [facility] [id number] Information: [id number],2ND ORDER NO DRAW F [facility] (48967) ALT (SGPT) 31 [iU]/L (Normal) Range: 0-40 [...] Creatinine Clearance Comments: PATIENT WAS FASTINGPERFORMED BY: MobSoc MediaCorewell [facility]6370 [facility] [id number] Information: 10/30@6AM 10/31@730AM Creatinine Clearance 58 mL/min [...] Qn, 24-Hr Comments: PATIENT WAS FASTINGPERFORMED BY: Obihai TechnologyAtlantiCare Regional Medical Center, [facility] CampusQzzhpo2299 [facility] [id number] Urine Prot,24hr calculated 1023.8 {mg/24_hr} (Abnormal) Range: 30.0-150.0 Protein,Total,Urine 52.5 mg/dL (Abnormal) Range: 0.0-15.0 :04 HgA1C , Office (18901) HgA1C , Office 6.1 % (Normal) Range: [...] regarding this repor t, please call our 29P7qfsmomt line @ Dictated on 07/27/11 1040 by GAYE PEREZ MD RTranscribed on 07/28/11 122 by ITS IMPORTSign by GAYE PEREZ MD on 07/28/111224 Sign by: GAYE PEREZ MD :54 Vitamin D Hydroxy (60254) Comments: PATIENT WAS FASTINGPERFORMED BY: [employer] [place] [id number] Vitamin D, 25-Hydroxy 48.8 ng/mL (Normal) Range: 30.0-100.0 Comments: Vitamin D deficiency has been defined by the [place] of[place]icine and an Endocrine Society practice guideline as alevel of serum 25-OH vitamin D less than 20 ng/mL (1,2).The Endocrine Society went on to further define vitamin Dinsufficiency as a level between 21 and 29 ng/mL (2).1. IOM ([place] of Medicine). 2010. Dietary reference intakes for calcium and D. [place]: The National Academies Press.2. Mira MF, Rosette LOPEZ, Tommy SWAIN, et al. Evaluation, treatment, and prevention of vitamin D deficiency: an Endocrine Society clinical practice guideline. JCEM. 2010; 96(7):1911-30. :54 LIPID PANEL (24845) Comments: PATIENT WAS FASTINGPERFORMED BY: [employer]6370 [facility] [id number] LDL/HDL Ratio 1.0 {ratio_units} (Normal) Range: 0.0-3.2 [...] MANUAL DIFF Comments: PATIENT WAS FASTINGPERFORMED BY: [employer] Lkiwkt8583 [facility]concertKind[facility] [id number] Information: ADD [id number] AND DRAW FEE 99 3268 (43293) Immature Grans (Abs) 0.0 {x10E3/uL} (Normal) Range: [...] 3.77-5.28 WBC 4.3 {x10E3/uL} (Normal) Range: 4.0-10.5 85-Fyq-10393:54 METABOLIC PANEL, COMPREHENSIVE Comments: PATIENT WAS FASTINGPERFORMED BY: LabCoAtlantiCare [facility], [facility] CampusMtdqub3946 [facility] [id number] (66030) ALT (SGPT) 48 [iU]/L (Abnormal) Range: 0-40 [...] (Abnormal) Range: 65-99 :18 HgA1C , Office (95103) HgA1C , Office 6.1 % (Normal) Range: 4.6 - 7.1 :18 Blood Glucose , Office (42120) Blood Glucose , Office 103 (Normal) 60-Sbw-94379:00 ABDOMEN WITH AND W/O CONTRAST Radiology Report [...] radiologist regarding this report, please call our [id number] line @ Dictated on 03/18/11 1715 by Keaton MANN,Sergeranscribed on 03/22/11 1401 by ITS IMPORTSign by Jeanette Hill MD on 03/22/11 1402 Sign by: Jeanette Pugh MD 02-Hyk-952052:29 SERUM CRE & GFR CREAT,SERUM 1.1 mg/dL (Abnormal) Range: 0.6-1.0 18-Qnm-34339:00 BRAIN W/WO CONTRAST Radiology Report See Note [...] seen in 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 The cortical [...] 03/02/11 173 Sign by: Donna Martin MD 23-Myj-26319:00 UPPER EXT. JOINT ONLY(ROUTINE) Radiology Report See [...] on 03/04/11 1035 Sign by: Ankur Duncan 37-Sgv-156120:08 SHOULDER,MIN 2 VIEWS Radiology Report See Note [...] 02/01/11 1021 Sign by: ALEJANDRO DRUMMOND DO 56-Yll-704780:57 SINUS/FACIAL BONE Radiology Report See Note (Normal) [...] 01/19/11 1448 Sign by: Misael Hebert MD 32-Sqf-36018:00 BRAIN W/WO CONTRAST Radiology Report See Note [...] addition, there is a small region of iqmwmtyhuX2ieflfxovqg along the anterior margin of the mass, [...] on 01/19/111650 Sign by: GAYE PEREZ MD 44-Rrn-91792:00 BRAIN/HEAD W/WO CONTRAST Radiology Report See Note [...] 01/19/11 1447 Sign by: Misael Hebert MD 64-Stq-152257:08 BILAT SCRN DIGITAL & CAD Radiology Report [...] CREATININE RATIO Comments: PATIENT NOT FASTINGPERFORMED BY: LabCoAtlantiCare [facility], [facility] CampusWragxk2189 [facility] [id number] (17173) AND (81903) Microalb/Creat Ratio 1028.4 {mg/g_creat} (Abnormal) Range: 0.0-30.0 Microalbumin, Urine 1341.0 ug/mL (Abnormal) Range: 0.0-17.0 Creatinine, Urine 130.4 mg/dL (Normal) Range: 15.0-278.0 :20 CBC WITH MANUAL DIFF (74129) Comments: PATIENT NOT FASTINGPERFORMED BY: [facility] Mjzaph3703 [facility] [id number] Immature Grans (Abs) 0.0 {x10E3/uL} (Normal) Range: [...] 3.80-5.10 WBC 4.1 {x10E3/uL} (Normal) Range: 4.0-10.5 7-Mar-24950:20 LIPID PANEL (19339) Comments: PATIENT NOT FASTINGPERFORMED BY: Obihai TechnologyAtlantiCare Regional Medical Center, [facility] CampusVnadiw5473 [facility] [id number] LDL/HDL Ratio 0.9 {ratio_units} (Normal) Range: 0.0-3.2 [...] PANEL, COMPREHENSIVE Comments: PATIENT NOT FASTINGPERFORMED BY: [employer] Geeoie6654 [facility] [id number] (98426) ALT (SGPT) 28 [iU]/L (Normal) Range: 0-40 [...] (Abnormal) Range: 65-99 :39 HgA1C , Office (12324) HgA1C , Office 6.5 % (Normal) Range: 4.6 - 7.1 :39 Blood Glucose , Office (12050) Blood Glucose , Office 128 (Normal) :19 CBC With Differential/Platelet Comments: PATIENT WAS FASTINGPERFORMED BY: [facility] Dygpkz0234 [facility] [id number] Immature Grans (Abs) 0.0 {x10E3/uL} (Normal) Range: [...] 3.80-5.10 WBC 5.6 {x10E3/uL} (Normal) Range: 4.0-10.5 7-Msv-978139:19 Comp. Metabolic Panel (14) Comments: PATIENT WAS FASTINGPERFORMED BY: [facility] Yzevtd4657 [facility] [id number]; appt 01/11/11 ALT (SGPT) 18 [iU]/L (Normal) [...] Glucose, Serum 113 mg/dL (Abnormal) Range: 65-99 5-Jpv-340309:19 Lipid Panel With LDL/HDL Comments: PATIENT WAS FASTINGPERFORMED BY: [employer]70 [facility] [id number] Ratio LDL/HDL Ratio 1.0 {ratio_units} Range: 0.0-3.2 [...] 0.800 {uIU/mL} Comments: PATIENT WAS FASTINGPERFORMED BY: [employer]6[address] [place] [facility] [id number] 2:19 (Normal) Range: 0.450-4.500 Vitamin D, 25-Hydroxy 44.0 ng/mL (Normal) Comments: PATIENT WAS FASTINGPERFORMED BY: [employer]6370 [facility] [id number] 2:19 Range: 32.0-100.0 Comments: Effective February 22, 2011 Vitamin D, 25-Hydroxy reference intervals will be changing to 30-100. .Recent studies consider the lower li sandra of 32.0 ng/mL to be athreshold for optimal health.Otf HAYES. J Nutr. 2004;135(2):317-22. :54 HgA1C , Office (05044) HgA1C , Office 6.6 % (Normal) Range: 4.6 - 7.1 :54 Blood Glucose , Office (21522) Blood Glucose , Office 134 (Normal) 7-Rbx-809864:40 Creatinine Clearance Comments: PERFORMED BY: [employer] Tzjkjk4472 PlayerizeKindred Hospital [facility] [id number] Information: 10/07@7AM 10/08@3AM Creatinine Clearance 56 mL/min [...] Protein Total, Qn, 24-Hr Comments: PERFORMED BY: [employer]6370 [facility]concertKind[facility] [id number] Urine Prot,24hr calculated 610.5 {mg/24_hr} (Abnormal) Range: 30.0-150.0 Protein,Total,Urine 40.7 mg/dL (Abnormal) Range: 0.0-15.0 :46 Vitamin D Hydroxy (78621) Comments: PATIENT WAS FASTINGPERFORMED BY: [employer] Frhyxe3485 [place] [employer] [id number] Vitamin D, 25-Hydroxy 36.5 ng/mL (Normal) Range: 32.0-100.0 Comments: Recent studies consider the lower limit of 32.0 ng/mL to be athreshold for optimal health.Otf HAYES. J Nutr. 2004;135(2):317-22. :46 METABOLIC PANEL, COMPREHENSIVE Comments: PATIENT WAS FASTINGPERFORMED BY: [employer]70 [facility] [id number] (48788) ALT (SGPT) 34 [iU]/L (Normal) Range: 0-40 [...] Glucose, Serum 116 mg/dL (Abnormal) Range: 65-99 2-Vjv-566222:46 LIPID PANEL (67224) Comments: PATIENT WAS FASTINGPERFORMED BY: LabCoAtlantiCare [facility], [facility] CampusYdcvek8813 [facility] [id number] LDL Cholesterol Calc 85 mg/dL (Normal) Range: 0-99 LDL/HDL Ratio 1.2 {ratio_units} (Normal) Range: 0.0-3.2 VLDL Cholesterol Cesar 28 mg/dL (Normal) Range: 5-40 HDL Cholesterol 69 mg/dL (Normal) Comments: According to ATP-III Guidelines, HDL-C >59 mg/dL is considered anegative risk factor for CHD. Cholesterol, Total 182 mg/dL (Normal) Range: 100-199 Triglycerides 141 mg/dL (Normal) Range: 0-149 9-Ojj-307438:46 CBC WITH MANUAL DIFF Comments: PATIENT WAS FASTINGPERFORMED BY: LabCoAtlantiCare [facility], [facility] CampusPrsbfm2826 [facility] [id number] Information: [id number]; appt 10/12/10 (08079) Immature Grans (Abs) 0.0 {x10E3/uL} (Normal) Range: [...] 3.80-5.10 WBC 5.5 {x10E3/uL} (Normal) Range: 4.0-10.5 8-Eyj-190322:07 HgA1C , Office (20748) HgA1C , Office 6.6 % (Normal) Range: 4.6 - 7.1 :07 Blood Glucose , Office (16566) Blood Glucose , Office 114 (Normal) 71-Okj-170637:00 Creatinine Clearance Comments: PERFORMED BY: Obihai TechnologyAtlantiCare Regional Medical Center, [facility] CampusNhjayh6794 [facility] [id number] Information: 12/31@8AM 01/01@4AM Creatinine Clearance 48 mL/min [...] Creatinine, Serum 1.20 mg/dL (Abnormal) Range: 0.57-1.00 36-Xbh-942189:00 Protein Total, Qn, 24-Hr Comments: PERFORMED BY: MobSoc MediaCorewell Health [facility] Hospital6370 [facility] [id number] Urine Prot,24hr calculated 1070.6 {mg/24_hr} (Abnormal) Range: 30.0-150.0 Protein,Total,Urine 79.3 mg/dL (Abnormal) Range: 0.0-15.0 20-Vsa-248389:48 BILAT SCRN DIGITAL & CAD Radiology Report See Note (Normal) Comments: Exam Number: [id number] MAMMOGRAPHY - BILATERAL SCREENING INDICATION:Routine annual screening [...] of attaching a ResultCode to this exam.ADDENDUM: [id number] HPBI/MDS Reported By: MISAEL HEBERT 86-Kio-577905:48 DEXA BONE DENSITY STUDY (HP) Radiology Report See Note (Normal) Comments: Exam Number: [id number] CLINICAL:This is a 69-year-old female patient with postmenopausal screening. EXAMINATION:DUAL ENERGY X-RAY ABSORPTIOMETRY / DEXA. TECHNIQUE:Bone Density Measurements (BMD) of lumb ar spine and bilateral hipswere obtained using a [employer] scanner.. COMPARISON:None. FINDINGS: Lumbar Spine (L1-L4): g/cm2 [...] Osteoporosis Foundation http://www.nof.org Reported By: MISAEL HEBERT 08-Omb-078945:29 HgA1C , Office (72969) HgA1C , Office 6.5 % (Normal) Range: 4.6 - 7.1 86-Pbz-726808:29 Blood Glucose , Office (95296) Blood Glucose , Office 109 (Normal) 97-Qcj-81852:05 CBC With Differential/Platelet Comments: PATIENT WAS FASTINGPERFORMED BY: LabCoAtlantiCare [facility], [facility] CampusYyepsc6321 [facility] [id number] Immature Grans (Abs) 0.0 {x10E3/uL} (Normal) Range: [...] 3.80-5.10 WBC 3.9 {x10E3/uL} (Abnormal) Range: 4.0-10.5 56-Vrc-09775:05 Comp. Metabolic Panel (14) Comments: PATIENT WAS FASTINGPERFORMED BY: [facility] [employer]6805 [facility] [id number] ALT (SGPT) 20 [iU]/L (Normal) Range: 0-40 [...] With LDL/HDL Comments: PATIENT WAS FASTINGPERFORMED BY: [employer]70 [facility]certKind[facility] [id number] Ratio HDL Cholesterol 54 mg/dL (Normal) Comments: [...] ng/mL (Normal) Comments: PATIENT WAS FASTINGPERFORMED BY: [employer]6370 PlayerizeKindred [facility] [id number] :05 Range: 32.0-100.0 Comments: Recent studies consider the lower limit of 32.0 ng/mL to be athreshold for optimal health.Otf HAYES. J Nutr. 2004;135(2):317-22. :41 SPLEEN (HP) Radiology Report See Note (Normal) Comments: Exam Number: [id number] ULTRASOUND OF THE SPLEEN A goal directed [...] Protein, 0.5 mg/L (Normal) Comments: PERFORMED BY: [employer]70 PlayerizeFormerly [facility]in [place] [id number] 10:54 Quant Range: 0.0-4.9 17-Jun-2009 Hemoglobin A1c 6.3 % (Abnormal) Comments: PERFORMED BY: [employer]70 [place]oughbySenesco TechnologiesFormerly [facility] Hospitalin [place] [id number] 10:54 Range: 4.8-5.6 Comments: Increased risk for diabetes: 5.7 - 6.4Diabetes: >6.4Glycemic control for adults with diabetes: <7.0.Please note reference interval change 17-Jun-2009 Sedimentation 4 mm/h (Normal) Comments: PERFORMED BY: [employer] [place] [facility] [id number] 10:54 Rate-Westergren Range: 0-30 17-Jun-2009 Vitamin B12 1372 pg/mL Comments: PERFORMED BY: [employer] [place] [facility] [id number] 10:54 (Abnormal) Range: 211-911 Comments: Effective July 14, 2009, Vitamin B12 will bechanging to the [place] ECLIA methodology. Thereference interval will be changing to:211 - 946 pg/mL 17-Jun-2009 Vitamin D, 25-Hydroxy 37.7 ng/mL Comments: PERFORMED BY: [employer] Crvfyf7761 [facility] [id number] 10:54 (Normal) Range: 32.0-100.0 Comments: Recent studies consider the lower limit of 32.0 ng/mL to be athreshold for optimal health.Otf HAYES. J Nutr. 2004;135(2):317-22. 85-Cod-239883:34 Vitamin D Hydroxy Comments: PATIENT NOT FASTINGPERFORMED BY: [employer] Yebrrz2633 [facility] [id number] Information: Q31869,2ND ORDER NO DRAW Constance EE (01432) Vitamin D, 25-Hydroxy 48.5 ng/mL (Normal) Range: 30.0-100.0 Comments: Vitamin D deficiency has been defined by the [place] of[place]icine and an Endocrine Society practice guideline as alevel of serum 25-OH vitamin D less than 20 ng/mL (1,2).The Endocrine Society went on to further define vitamin Dinsufficiency as a level between 21 and 29 ng/mL (2).1. IOM ([place] of Medicine). 2010. Dietary reference intakes for calcium and D. [place]: The National AcademTiqIQ Press.2. Mira MF, Rosette LOPEZ, Tommy SWAIN, et al. Evaluation, treatment, and prevention of vitamin D deficiency: an Endocrine Society clinical practice guideline. JCEM. 2010; 96(7):1911-30. :50 HgA1C , Office (35752) HgA1C , Office 6.7 % (Normal) Range: 4.6 - 7.1 :50 Blood Glucose , Office (00775) Blood Glucose , Office 117 (Normal) 25-Atm-593293:12 CBC With Differential/Platelet Comments: PERFORMED BY: LabDiana Ville 3880270 [facility] [id number] Information: 06/10@6AM3/10@330AM Hematology Comments: Note: (Normal) Comments: [...] 3.80-5.10 WBC 3.6 {x10E3/uL} (Abnormal) Range: 4.0-10.5 45-Rku-292091:12 Comp. Metabolic Panel (14) Comments: PERFORMED BY: [facility]6370 [facility] [id number] Alkaline Phosphatase, S 68 [iU]/L (Normal) Range: [...] Glucose, Serum 124 mg/dL (Abnormal) Range: 65-99 11-Imf-449100:12 Creatinine Clearance Comments: PERFORMED BY: [employer] [facility] [id number] Creatinine Clearance 49 mL/min (Abnormal) Range: 88-128 Comments: The above range is based on 1.73 square meter average body surfacearea. Creatinine, Ur 24hr 800.0 {mg/24_hr} (Normal) Range: 800.0-1800.0 Creatinine, Urine 40.0 mg/dL (Normal) Range: 15.0-278.0 53-Daw-035797:12 Lipid Panel With LDL/HDL Comments: PERFORMED BY: [employer] [facility] [id number] Ratio HDL Cholesterol 61 mg/dL (Normal) Comments: According to ATP-III Guidelines, HDL-C >59 mg/dL is considered anegative risk factor for CHD. LDL Cholesterol Calc 74 mg/dL (Normal) Range: 0-99 LDL/HDL Ratio 1.2 {ratio_units} (Normal) Range: 0.0-3.2 VLDL Cholesterol Cesar 17 mg/dL (Normal) Range: 5-40 Cholesterol, Total 152 mg/dL (Normal) Range: 100-199 Triglycerides 87 mg/dL (Normal) Range: 0-149 77-Ggo-480570:12 Protein Total, Qn, 24-Hr Comments: PERFORMED BY: [facility] [id number] Urine Prot,24hr calculated 1172.0 {mg/24_hr} Range: 30.0-150.0 (Abnormal) Protein,Total,Urine 58.6 mg/dL (Abnormal) Range: 0.0-15.0 TSH 1.280 {uIU/mL} Comments: PERFORMED BY: LabCoAtlantiCare [facility], [facility] CampusGkitvr6692 [facility] [id number] 1:12 (Normal) Range: 0.450-4.500 :58 HgA1C , Office (47370) HgA1C , Office 6.0 % (Normal) Range: 4.6 - 7.1 :58 Blood Glucose , Office (96786) Blood Glucose , Office 113 (Normal) :03 CBC With Differential/Platelet Comments: PATIENT WAS FASTINGPERFORMED BY: LabCoAtlantiCare [facility], [facility] CampusWcmmqx6865 [facility] [id number] Baso (Absolute) 0.0 {x10E3/uL} (Normal) Range: 0.0-0.2 [...] 11.7-15.0 WBC 3.2 {x10E3/uL} (Abnormal) Range: 4.0-10.5 8-Fkb-391438:03 Comp. Metabolic Panel (14) Comments: PATIENT WAS FASTINGPERFORMED BY: LabCoAtlantiCare [facility], [facility] CampusJurmtz7128 [facility] [id number] A/G Ratio 2.0 (Normal) Range: 1.1-2.5 Albumin, [...] Glucose, Serum 116 mg/dL (Abnormal) Range: 65-99 2-Mrz-717689:03 Lipid Panel With LDL/HDL Comments: PATIENT WAS FASTINGPERFORMED BY: EVE [employer]70 [facility] [id number] Ratio Cholesterol, Total 167 mg/dL (Normal) Range: [...] ng/mL (Normal) Comments: PATIENT WAS FASTINGPERFORMED BY: [employer] [facility] [id number] :03 Range: 32.0-100.0 Comments: Recent studies consider the lower limit of 32.0 ng/mL to be athreshold for optimal health.Otf HAYES. J Nutr. 2004;135(2):317-22. 95-Uvm-521543:32 Urinalysis, Office (19888) UA - BILIRUBIN Negative (Normal) UA - BLOOD Hemolyzed Trace (Normal) UA - GLUCOSE Negative (Normal) UA - KETONES Negative mg/dL (Normal) UA - LEUKOCYTE ESTERASE Negative (Normal) UA - NITRITE Negative (Normal) UA - PH 6.5 (Normal) UA - PROTEIN 300 mg/dL (Normal) UA - SPECIFIC GRAVITY 1.020 (Normal) URINE UROBILINGN JATINDER TIMED 2 mg/dL (Normal) 9-Iki-872867:19 URINE SETH CULTURE-JATINDER COL Comments: PATIENT NOT FASTINGClinical Information: SRC:UR ADD [id number] PERFORMED BY: [employer]70 [facility] [id number] COUNT (62058) Result 1 ECV (Normal) Comments: Escherichia coli, [...] report (Normal) Culture,Comprehensiv e 09-Jan-20098:17 Urinalysis, Office (93123) UA - BILIRUBIN Negative (Normal) UA - BLOOD Hemolyzed Large (Normal) UA - GLUCOSE Negative (Normal) UA - KETONES Negative mg/dL (Normal) UA - LEUKOCYTE ESTERASE Moderate (Normal) UA - NITRITE Negative (Normal) UA - PH 7.0 (Normal) UA - PROTEIN 300 mg/dL (Normal) UA - SPECIFIC GRAVITY 1.020 (Normal) URINE UROBILINGN JATINDER TIMED 2 mg/dL (Normal) 9-Kxw-573102:05 Comp. Metabolic Panel (14) Comments: PATIENT WAS FASTINGPERFORMED BY: [facility] Sdogoe6631 [facility] [id number] A/G Ratio 1.7 (Normal) Range: 1.1-2.5 Albumin, [...] Panel (7) Comments: PATIENT WAS FASTINGPERFORMED BY: ArchetypesUniversity [facility] [id number] Bilirubin, Direct 0.12 mg/dL (Normal) Range: 0.00-0.40 :05 Lipid Panel With LDL/HDL Comments: PATIENT WAS FASTINGPERFORMED BY: [employer] [facility] [id number] Ratio Cholesterol, Total 170 mg/dL (Normal) Range: [...] mg/dL (Normal) Comments: PATIENT WAS FASTINGPERFORMED BY: [employer]6370 [facility] [id number] :05 Range: 2.5-4.5 PTH, Intact 19 pg/mL (Normal) Comments: PATIENT WAS FASTINGPERFORMED BY: [facility] Krvzqb0560 [facility] [id number] :05 Range: 15-65 Vitamin D, 25-Hydroxy 38.9 ng/mL (Normal) Comments: PATIENT WAS FASTINGPERFORMED BY: [facility]Saint [facility] Fkojdv8225 [facility] [id number] :05 Range: 32.0-100.0 Comments: Recent studies consider the lower limit of 32.0 ng/mL to be athreshold for optimal health.Otf HAYES. J Nutr. 2004;135(2):317-22. :40 HgA1C , Office (57066) HgA1C , Office 6.0 % (Normal) Range: 4.6 - 7.1 :40 Blood Glucose , Office (42235) Blood Glucose , Office 109 (Normal) :42 CBC With Differential/Platelet Comments: PATIENT WAS FASTINGPERFORMED BY: LabCorewell Health [facility] Hospital6370 [facility] [id number] Baso (Absolute) 0.0 {x10E3/uL} (Normal) Range: 0.0-0.2 [...] 11.7-15.0 WBC 4.2 {x10E3/uL} (Normal) Range: 4.0-10.5 77-Ppl-005333:42 Comp. Metabolic Panel (14) Comments: PATIENT WAS FASTINGPERFORMED BY: LabCoAtlantiCare [facility], [facility] CampusFyeeoy9759 [facility] [id number] A/G Ratio 1.6 (Normal) Range: 1.1-2.5 Albumin, [...] Sodium, Serum 140 mmol/L (Normal) Range: 135-145 2-Oap-668650:09 FECAL OCCULT HGB ASSAY, QUAL, 1-3 SIMULTANEOUS DETERMINATIONS (63076) FECAL OCCULT HGB ASSAY, QUAL, 1-3 SIMULTANEOU neg (Normal) :42 Microscopic Examination Comments: PATIENT WAS FASTINGPERFORMED BY: twago - teamwork across global officesKindred Hospital - [facility] [id number] Bacteria None seen (Normal) Cast Type Hyaline casts (Normal) Casts Present {/lpf} (Abnormal) Epithelial Cells (non renal) 0-10 {/hpf} (Normal) Range: 0 - 10 Mucus Threads Present (Normal) RBC 0-3 {/hpf} (Normal) Range: 0 - 3 WBC 0-5 {/hpf} (Normal) Range: 0 - 5 :42 URINALYSIS W/O MICRO (57377) Comments: PATIENT WAS FASTINGPERFORMED BY: [employer] - teamwork across global officesKindred Hospital - [facility] [id number] Appearance Clear (Normal) Bilirubin Negative (Normal) Glucose Negative (Normal) Ketones Negative (Normal) Microscopic Examination See below: (Normal) Nitrite, Urine Negative (Normal) Occult Blood Negative (Normal) pH 5.0 (Normal) Range: 5.0-7.5 Protein 1+ (Abnormal) Specific [place] 1.013 (Normal) Range: 1.005-1.030 Urine-Color Yellow (Normal) Urobilinogen,Semi-Qn 0.2 mg/dL (Normal) Range: 0.0-1.9 WBC Esterase 1+ (Abnormal) :42 MICROALBUMIN: CREATININE RATIO Comments: PATIENT WAS FASTINGPERFORMED BY: [employer] - teamwork across global officesKindred Hospital - [facility] [id number] (97671) AND (95437) Creatinine, Urine 76.1 mg/dL (Normal) Range: 15.0-278.0 Microalb/Creat Ratio 292.1 {ug/mg_creat} (Abnormal) Range: 0.0-30.0 Microalbumin, Urine 222.3 ug/mL (Abnormal) Range: 0.0-17.0 :42 CBC WITH MANUAL DIFF (31550) Comments: PATIENT WAS FASTINGClinical Information: ADD DRAW FEE [id number] ADD J [id number] PERFORMED BY: EVE [employer]70 [facility] [id number] Baso (Absolute) 0.0 {x10E3/uL} (Normal) Range: 0.0-0.2 [...] PANEL, COMPREHENSIVE Comments: PATIENT WAS FASTINGPERFORMED BY: [employer]70 [facility] [id number] (77965) A/G Ratio 1.8 (Normal) Range: 1.1-2.5 Albumin, [...] (Normal) Range: 135-145 :23 HgA1C , Office (49257) HgA1C , Office 6.0 % (Normal) Range: 4.6 - 7.1 9-Zto-196032:23 Blood Glucose , Office (40916) Blood Glucose , Office 103 (Normal) :38 CBC WITH MANUAL DIFF (74613) Comments: PATIENT WAS FASTINGClinical Information: ADD DRAW FEE [id number] ADD J [id number] PERFORMED BY: LabCoAtlantiCare Regional Medical Center, [facility] CampusUjgojz2686 [facility] [id number] Baso (Absolute) 0.0 {x10E3/uL} (Normal) Range: 0.0-0.2 [...] 11.7-15.0 WBC 4.0 {x10E3/uL} (Normal) Range: 4.0-10.5 98-Pmy-417229:38 METABOLIC PANEL, COMPREHENSIVE Comments: PATIENT WAS FASTINGPERFORMED BY: [facility]Atl[facility] CampusMxkdhg1484 [facility] [id number] ([id number]) A/G Ratio 1.8 (Normal) Range: 1.1-2.5 Albumin, [...] Sodium, Serum 142 mmol/L (Normal) Range: 135-145 69-Qxx-558240:38 HEPATIC FUNCTION PANEL Comments: PATIENT WAS FASTINGPERFORMED BY: Major Aide [facility] Gdfnmo6356 [facility] [id number] ([id number]) Bilirubin, Direct 0.08 mg/dL (Normal) Range: 0.00-0.40 18-Ufr-195670:38 LIPID PANEL (61065) Comments: PATIENT WAS FASTINGPERFORMED BY: Major Aide [facility] Yweack7020 [facility] [id number] Cholesterol, Total 200 mg/dL (Abnormal) Range: 100-199 [...] (Normal) Range: 5-40 :36 HgA1C , Office (02219) HgA1C , Office 6.1 % (Normal) Range: 4.6 - 7.1 :36 Blood Glucose , Office (14685) Blood Glucose , Office 98 (Normal) :33 CBC With Differential/Platelet Comments: PATIENT WAS FASTINGClinical Information: SRC:UR PERFORMED BY: EVE [facility]6370 [facility] [id number] Baso (Absolute) 0.0 {x10E3/uL} (Normal) Range: 0.0-0.2 [...] 11.7-15.0 WBC 4.8 {x10E3/uL} (Normal) Range: 4.0-10.5 54-Soe-604819:33 Comp. Metabolic Panel (14) Comments: PATIENT WAS FASTINGPERFORMED BY: [facility] CampusFnfdjc9045 [facility] [id number] A/G Ratio 1.6 (Normal) Range: 1.1-2.5 Albumin, [...] Serum 92 mg/dL (Normal) Range: 65-99 If -Afghan 57 mL/min/1.73 Comments: Note: Persistent reduction for [...] With LDL/HDL Comments: PATIENT WAS FASTINGPERFORMED BY: [employer]6370 [facility] [id number] Ratio Cholesterol, Total 174 mg/dL (Normal) Range: [...] Urine Culture,Comprehensive Comments: PATIENT WAS FASTINGPERFORMED BY: Major Aide LabHeretic Films6370 [facility] [id number] Antimicrobial MIHEAD (Normal) Comments: S = Susceptible; [...] Enterococcus. (Normal) Urine Final report (Normal) Culture,Comprehensive 3-Ful-309472:10 HgA1C , Office (77607) HgA1C , Office 5.9 % (Normal) Range: [...] mL (Normal) URINE PROTEIN 20.0 mg/dL (Abnormal) 55-Hba-998103:17 Urine Culture,Comprehensive Comments: Clinical Information: SRC:UR PERFORMED BY: [facility]6370 [facility] [id number] Result 1 CNSNSS (Normal) Comments: Coagulase negative Staphylococcus species, not Staphylococcussaprophyticus.600 Colonies/mLSusceptibility or resistance of staphylococci to oxacillin predictssusceptibility or resistance to (a) other be rs-cezrvfhjr-ndkpowiasdhodgkxs such as cloxacillin and dicloxacillin, (b) combinationsof a penicillin and a beta-lactamase inhibitor, and(c) anti- staphylococcal cephalosporins. Routine testing of otherp enicillins, beta-lactam/beta-lactamase inhibitor combinations,cephems, and carbapenems is not advised by the CLSI Standards(T584-J21, 2005). S = Susceptible; I = Intermediate; R = Resistant * P = Positive; N = Negative MICS are expressed in micrograms per mL Antibiotic RSLT#1 RSLT#2 RSLT#3 RSLT#4Ciprofloxacin RGentami kristian SLevofloxacin RNitrofurantoin SOxacillin SPenicillin RRifampin STrimethoprim/Sulfa SVancomycin S Urine Final report Culture,Comprehensi (Normal) ve :53 Metabolic Panel, Basic (96387) Comments: PATIENT NOT FASTINGClinical Information: ADD DRAW FEE [id number] ADD J 42101 PERFORMED BY: [facility] Fqndiq6811 [facility] [id number] BUN 39 mg/dL (Abnormal) Range: 5-26 BUN/Creatinine Ratio 33 (Abnormal) Range: 8-27 Calcium, Serum 9.8 mg/dL (Normal) Range: 8.5-10.6 Carbon Dioxide, Total 22 mmol/L (Normal) Range: 20-32 Chloride, Serum 103 mmol/L (Normal) Range: 97-108 Creatinine, Serum 1.20 mg/dL (Abnormal) Range: 0.57-1.00 Glom Filt Rate, Est 45 mL/min/1.73 Range: 60-128 (Abnormal) Glucose, Serum 101 mg/dL (Abnormal) Range: 65-99 If -Afghan 55 mL/min/1.73 Range: 60-128 (Abnormal) Comments: Note: Persistent reduction for 3 months or more in an eGFR<60 mL/min/1.73 m2 defines CKD. Patients with eGFR values>/=60 mL/min/1.73 m2 may also have CKD if evidence of persistentproteinuria is present. Additional information may be found [email or web address]. Potassium, Serum 5.1 mmol/L (Normal) Range: 3.5-5.2 Sodium, Serum 139 mmol/L (Normal) Range: 135-145 :09 HgA1C , Office (84889) HgA1C , Office 6.1 % (Normal) Range: 4.6 - 7.1 :09 Blood Glucose , Office (12162) Blood Glucose , Office 163 (Normal) :37 SPINE,LUMBAR (ROUTINE) Radiology Report See Note (Normal) Comments: Exam Number: [id number] MRI LUMBAR SPINE CLINICAL STATEMENTLow back pain [...] onboth sides. Reported By: MODESTA COPE M.D. 04-Lrc-526333:00 [facility] DIGITAL & CAD Radiology Report See Note (Normal) Comments: Exam Number: [id number] MAMMOGRAM, BILATERAL SCREENING DIGITAL AND CAD HISTORYRoutine screening. Full field digital images were obtained in mediolateral oblique andcraniocaudal projections. CAD images w ere reviewed. The current study is compared to the [facility]. A small metal marker is placed [...] mammograms werealso examined with computer-aided detection software (MooBella, CapsoVision, Cobook.). Reported By: DONNA OJEDA M.D. :59 DEXA BONE DENSITY STUDY () Radiology Report See Note (Normal) Comments: Exam Number: [id number] BONE DENSITOMETRY HISTORYPost menopausal. TECHNIQUE Bone densitometry [...] Report See Note (Normal) Comments: Exam Number: [id number] FIVE VIEW LUMBAR SPINE AP, lateral, both [...] By: MAIRA GARZA M.D. :19 Microalb/Creat Ratio, [facility] Comments: PATIENT NOT FASTINGPERFORMED BY: EVE LabCoAtl[facility], [facility] CampusYavxoz0037 [facility] [id number] Creatinine, Urine 46.8 mg/dL (Normal) Microalb/Creat Ratio 712.8 {ug/mg_creat} (Abnormal) Range: 0.0-30.0 Microalbum.,U,Random 333.6 ug/mL (Abnormal) Range: 0.0-17.0 :13 Creatinine Clearance Comments: PATIENT NOT FASTINGClinical Information: HT-5'4'' WT-184 PERFORMED BY: [employer] Fmbtxe9903 [facility] [id number] Creatinine Clearance 40 mL/min (Abnormal) Range: 88-128 Comments: The above range is based on 1.73 square meter average body surfacearea. Creatinine, Serum 1.30 mg/dL (Normal) Range: 0.50-1.50 Creatinine, Ur 24hr 754.8 {mg/24_hr} Range: 800.0-1800.0 (Abnormal) Creatinine, Urine 44.4 mg/dL (Normal) Glom Filt Rate, Est 41 mL/min (Abnormal) Range: 60-128 If -Afghan 50 mL/min (Abnormal) Range: 60-128 Comments: Note: Persistent reduction for 3 months or more in an eGFR<60 mL/min/1.73 m2 defines CKD. Patients with eGFR values>/=60 mL/min/1.73 m2 may also have CKD if evidence of persistentproteinuria is present. .Additional information may be found at [email or web address]. :13 Protein Total, Qn, 24-Hr Comments: PATIENT NOT FASTINGPERFORMED BY: Obihai TechnologyAtlantiCare Regional Medical Center, [facility] CampusIweecf6235 [facility] [id number] Urine Protein,Total,Urine 49.0 mg/dL (Abnormal) Range: 0.0-15.0 Prt, 24hr calculated 833.0 {mg/24_hr} (Abnormal) Range: 30.0-150.0 51-Abl-107117:00 CBCD,SMEAR DIFF CELLS COUNTED 100 (Normal) EOS [...] D BILI 0.06 mg/dL (Normal) Range: 0.00-0.30 20-Rvs-965946:00 LIPID CHOL 175 mg/dL (Normal) Comments: <200 [...] mg/dL VLDL 12 mg/dL (Normal) Range: 5-40 85-Inv-238495:00 TSH 0.84 {uIU/mL} (Normal) Range: 0.34-4.82 Plan [...] of skin Planned Observations Vitamin D Hydroxy (06677)Indication: Vitamin D deficiency On: :25 Request URINALYSIS, W/ MICRO (08328)Indication: Chronic kidney disease, stage 3 On: :25 Request LIPID PANEL (71010)Indication: Mixed hyperlipidemia On: : Request CBC W/AUTO DIFF WBC (28964)Indication: Chronic kidney disease, stage 3 On: :25 Request METABOLIC PANEL, COMPREHENSIVE (40981)Indication: Chronic kidney disease, stage 3 On: :25 Request HGB A1C (91916)Indication: Diabetes mellitus type II, controlled On: 87-Iug-796051:24 Request Parathyroid Hormone-related Peptide (PTH-rP) (14396)Indication: Vitamin D deficiency On: 1-Hgt-551212:43 Request Comments: send results to Dr. Santana fax: [phone] VITAMIN D, 1, 25-DIHYDROXY (74198)Indication: Vitamin D deficiency On: 6-Tji-232765:42 Request Comments: send results to Dr. Santana fax: [phone] Clostridium difficile Toxin A+B, EIA (95320)Indication: Chronic diarrhea On: 9-Lhc-880412:36 Request Vitamin D Hydroxy (51052)Indication: Osteopenia On: 5-Ymj-032254:20 Request CBC W/AUTO DIFF WBC (61598)Indication: Hypertension, benign On: 8-Nbh-892144:16 Request CALCIFEDIOL (00203)Indication: Chronic kidney disease, stage 3 On: 03-Aug-20169:04 Request Renal function Panel (53504)Indication: Chronic kidney disease, stage 3 On: :04 Request Magnesium (26713)Indication: Chronic kidney disease, stage 3 On: :04 Request MICROALBUMIN: CREATININE RATIO (66757) AND (13046)Indication: Chronic kidney disease, stage 3 On: :04 Request Parathyroid Hormone-related Peptide (PTH-rP) (15785)Indication: Chronic kidney disease, stage 3 On: : Request T4, FREE (THYROXINE) (19575)Indication: Cold feeling On: :31 Request TSH (34113)Indication: Cold feeling On: : Request PARATHORMONE (11611)Indication: Chronic kidney disease, stage 3 On: :18 Request Comments: copy to Dr. Santana [phone] CALCIFIDIOL (89604) VIT D 25Indication: Chronic kidney disease, stage 3 On: :16 Request Comments: copy to Dr. Santana [phone] MAGNESIUM (44699)Indication: Chronic kidney disease, stage 3 On: :15 Request Comments: copy to Dr. Santana [phone] PROTEIN/CREAT RATIO, URINE (67969)Indication: Chronic kidney disease, stage 3 On: :15 Request Comments: copy to Dr. Santana [phone] LIPID PANEL (91723)Indication: Mixed hyperlipidemia On: :21 Request CBC with auto diff (81144)Indication: Diabetes mellitus type II, controlled On: 57-Rbr-063217:20 Request METABOLIC PANEL, COMPREHENSIVE (71230)Indication: Diabetes mellitus type II, controlled On: 77-Pqu-958970:20 Request HGB A1C (22770)Indication: Diabetes mellitus type II, controlled On: :10 Request Vitamin D Hydroxy (29290)Indication: Osteopenia On: :08 Request TSH (THYROID STIMULATING HORMONE) (94569)Indication: Depression On: :06 Request LIPID PANEL (65537)Indication: Other and unspecified hyperlipidemia On: :06 Request CBC with auto diff (34416)Indication: Diabetes mellitus type II, controlled On: 56-Mfc-054977:06 Request METABOLIC PANEL, COMPREHENSIVE (15308)Indication: Diabetes mellitus type II, controlled On: 96-Toh-170123:06 Request CREATININE CLEARANCE (59936)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 On: 9-Hbz-695578:38 Request Total Protein,24 Hour Urine (17377)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 On: 6-Kgg-307597:38 Request CBC W/AUTO DIFF WBC (20436)Indication: Diabetes mellitus type II, controlled On: 47-Uji-041892:11 Request HgA1C , Office (52460)Indication: Diabetes mellitus type II, controlled On: 39-Ywh-039488:23 Request CULTURE, SPUTUM (27258)Indication: Cough On: 81-Bzs-568153:47 Request HEPATIC FUNCTION PANEL (74463)Indication: Elevated LFTs On: 12-Gov-00793:24 Request CREATININE CLEARANCE (29774)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 On: 82-Zzt-42739:33 Request 24 hour urine for Protein (72386)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 On: :33 Request CBC WITH MANUAL DIFF (60076)Indication: Diabetes mellitus type II, controlled On: :29 Request METABOLIC PANEL, COMPREHENSIVE (10902)Indication: Diabetes mellitus type II, controlled On: 11-Qsg-291887:29 Request LIPID PANEL (99633)Indication: Mixed hyperlipidemia On: :29 Request CREATININE CLEARANCE (57863)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 On: 0-Lee-919221:45 Request 24 hour urine for Protein (27085)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 On: 6-Tvu-979767:45 Request CREATININE CLEARANCE (52669)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 On: 60-Xtm-052537:57 Request 24 hour urine for Protein (30226)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 On: 26-Sdk-234699:57 Request METABOLIC PANEL, COMPREHENSIVE (18909)Indication: Hypertension, benign On: :32 Request LIPID PANEL (53328)Indication: Mixed hyperlipidemia On: 24-Olp-07401:32 Request C-REACTIVE PROTEIN (81661)Indication: Fatigue On: :24 Request SED RATE ERYTHROCYTE (22637)Indication: Headache On: :24 Request VITAMIN B-12 (CYANOCOBALAMIN) (19633)Indication: Fatigue On: :24 Request LIPID PANEL (45085)Indication: Mixed hyperlipidemia On: :41 Request CBC WITH MANUAL DIFF (49784)Indication: Hypertension, benign On: :41 Request METABOLIC PANEL, COMPREHENSIVE (35984)Indication: Hypertension, benign On: :41 Request CREATININE CLEARANCE (17570)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 On: :34 Request 24 hour urine for Protein (99926)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 On: :34 Request LIPID PANEL (82124)Indication: Mixed hyperlipidemia On: :22 Request HEPATIC FUNCTION PANEL (26961)Indication: Mixed hyperlipidemia On: 6-Vio-730755:22 Request Vitamin D Hydroxy (89543)Indication: Hypercalcemia On: 8-Ijo-797660:22 Request PHOSPHORUS (95655)Indication: Hypercalcemia On: 2-Qom-248124:22 Request PARATHORMONE (42226)Indication: Hypercalcemia On: 4-Qhz-646341:22 Request METABOLIC PANEL, COMPREHENSIVE (11357)Indication: Hypercalcemia On: 9-Qki-932551:22 Request CBC WITH MANUAL DIFF (50076)Indication: fsgs On: :58 Request LIPID PANEL (07409)Indication: Mixed hyperlipidemia On: 8-Vkp-836781:58 Request METABOLIC PANEL, COMPREHENSIVE (76600)Indication: Hypertension, benign On: 0-Hrd-254842:58 Request Blood Glucose , Office (12213)Indication: Diabetes mellitus type II, controlled On: 0-Xcw-184035:10 Request TSH (85555)Indication: Diabetes mellitus type II, controlled On: 53-Wld-783135:51 Request METABOLIC PANEL, COMPREHENSIVE (93438)Indication: Diabetes mellitus type II, controlled On: 78-Vuz-187139:51 Request CBC WITH MANUAL DIFF (75303)Indication: Diabetes mellitus type II, controlled On: 02-Ybx-378413:51 Request MICROALBUMIN: CREATININE RATIO (93941) AND (22890)Indication: Diabetes mellitus type II, controlled On: :51 Request HEPATIC FUNCTION PANEL (36405)Indication: Other and unspecified hyperlipidemia On: :51 Request LIPID PANEL (23136)Indication: Other and unspecified hyperlipidemia On: :51 Request HgA1C , Office (92126)Indication: Diabetes mellitus type II, controlled On: :37 Request Blood Glucose , Office (22533)Indication: Diabetes mellitus type II, controlled On: :37 Request Planned Encounters Medical; [facility] 3 Month FU - On: 22-Mar-2018 11:00 [facility] Fast DO, Chaparrita A Fast DO, Chaparrita A Planned Procedures DRAIN/INJECT MAJOR JOINT OR BURSA On: 07-Feb-2018 Intent ()By: Keri Singh MD Comments: lot no [id number] exp date 2017-12-26 DRAIN/INJECT MAJOR JOINT OR BURSA On: 31-Jan-2018 Intent ()By: Keri Singh MD Comments: Lot#[id number]:3-81-69Spmyd:intra articular Site given:left knee Given By: Dr. Singh ABN signed DRAIN/INJECT MAJOR JOINT OR BURSA On: 24-Jan-2018 Intent ()By: Keri Singh MD Comments: Lot#[id number]: 2-59-04Abxrf:intra artciular Site given:left knee Given By: Dr. Singh ABN signed Euflexxa Echo CompleteBy: Fast DO, Chaparrita A On: 16-Dec-2017 Intent Fast DO, Chaparrita A Flu Vaccine (Quadrivalent) [id number]: On: 16-Dec-2017 Intent Fast DO, Chaparrita A Fast DO, Chaparrita A Comments: Lot: [id number]: 10/01/18Site: L dltd, IMDose prefilled syringegiven by: Jamie reviewed and ABN signed Kenalog Injection, 10 mgm On: 03-Oct-2017 Intent (J3301)By: Keri Singh MD Comments: lot: [id number]: 11/20site/route: L knee Cartoid DopplerBy: Ambrocio WOLFF Chaparrita A On: 12-Sep-2017 Intent Ambrocio WOLFF Chaparrita A Comments: november DIGITAL TOMOSYNTHESIS OF On: 12-Sep-2017 Intent BREAST (28652)By: Chaparrita Albrecht DO A Comments: due november 02 Chaparrita Albrecht DO A Kenalog Injection, 10 mgm On: 06-Jun-2017 Intent (J3301)By: Keri Singh MD Comments: bupivacacine 0.5% [id number] exp 09-20 kenalog 40 mg injected in. [id number] 07-21 MRI OF BRAIN WITH AND WITHOUT On: 06-Jun-2017 Intent CONTRAST (95692)By: Chaparrita Albrecht DO A Ambrocio WOLFF, Chaparrita A ELECTROCARDIOGRAM, COMPLETE (ECG) On: 06-Jun-2017 Intent (48412)By: Chaparrita Albrecht DO Comments: ekg showed normal sinus rhythym, normal axis, no acute st/t wave changes DO, Chaparrita A INFUSION, NORMAL SALINE SOLUTION , On: 10-May-2017 Intent 1000 CC (Special Coverage Comments: 2 liters total Instructions Apply. See MCM: 2048) (J7030)By: Case Albrecht DOa A Fast DO, Chaparrita A INFUSION, NORMAL SALINE SOLUTION , On: 10-May-2017 Intent 1000 CC (Special Coverage Comments: lot:[id number]:IV left anticub dose:1000ml given by:eliazar Araya, HEAD START ASSISTANT TEACHER Instructions Apply. See MCM: 2048) (J7030)By: Chaparrita Albrecht DO A Ambrocio DO, Chaparrita A Radiology - Chest- PA and LatBy: On: 05-May-2017 Intent Keri Singh MD Aerosol Treatment (19856)By: On: 05-May-2017 Intent Keri Singh MD Radiology - ChestBy: Francisco MANN, On: 05-May-2017 Intent Keri Alonzo Comments: call wet read DRAIN/INJECT MAJOR JOINT OR BURSA On: 28-Feb-2017 Intent (91765)By: Keri Singh MD Comments: 1 cc Kenelog #[id number] Marcaine #[id number] Kenalog Injection, 10 mgm On: 28-Feb-2017 Intent (J3301)By: Keri Singh MD ELECTROCARDIOGRAM, COMPLETE (ECG) On: 10-Jan-2017 Intent (49638)By: Chaparrita Albrecht DO Comments: ekg showed normal sinus rhythym, normal axis, no acute st/t wave changes Chaparrita WOLFF Flu Vaccine (Quadrivalent) 88067Eb: On: 27-Dec-2016 Intent SHONDA Andrade DRAIN/INJECT MAJOR JOINT OR BURSA On: 20-Aug-2016 Intent ()By: Keri Singh MD DRAIN/INJECT MAJOR JOINT OR BURSA On: 13-Aug-2016 Intent ()By: SHONDA Andrade Comments: lot: [id number]:intra articular dose:2ml given by:Dr. Francisco HUMPHREY signedER, HEAD START ASSISTANT TEACHER injection #3 DOPPLER ULTRASOUND OF RIGHT CAROTID On: 10-Aug-2016 Intent ARTERY (79435)By: Chaparrita Albrecht DO Comments: end of october Ambrocio WOLFF Chaparrita A DEXA SCAN AXIAL SKELETON (73789)By: On: 10-Aug-2016 Intent Case Albrecht DOa A Fast DO, Chaparrita A Comments: end october SCREENING DIGITAL TOMOSYNTHESIS OF On: 10-Aug-2016 Intent BREAST (71801)By: Chaparrita Albrecht DO Comments: end of october Fast , Chaparrita A DRAIN/INJECT MAJOR JOINT OR BURSA On: 06-Aug-2016 Intent ()By: Keri Singh MD DRAIN/INJECT INTERMED JOINT/BURSA On: 06-Aug-2016 Intent ()By: SHONAD Andrade Comments: lot:[id number]:left knee dose:2mlgiven by:Dr. Francisco HUMPHREY signedER, HEAD START ASSISTANT TEACHER injection number 2 Venous Doppler - LeftBy: Ambrocio WOLFF, On: 03-Aug-2016 Intent Chaparrita Albrecht DO, Chaparrita A Comments: This is set up for August 05 at 11am- spoke with Rina in cv. DRAIN/INJECT INTERMED JOINT/BURSA On: 30-Jul-2016 Intent ()By: Keri Singh MD Comments: lot:[id number]:[id number]:intra articular left knee dose: 2ml given by: Dr. Singh ABN signedER, HEAD START ASSISTANT TEACHER injection #1 Radiology - Knee - LeftBy: Fast DO, On: 26-May-2016 Intent Chaparrita A Fast DO, Chaparrita A Flu Vaccine (Quadrivalent) [id number]: On: 27-Jan-2016 Intent Fast DO, Chaparrita A Fast DO, Chaparrita A Comments: Lot #:[id number] date:10/01/16mount given:0.5mlRoute: IMSite given: left deltoidGiven by: CARMELINA Hook ADMINISTRATION OF INFLUENZA VIRUS On: 27-Jan-2016 Intent VACCINE (G0008)By: Fast DO, Chaparrita A Fast DO, Chaparrita A DOPPLER ULTRASOUND OF RIGHT CAROTID On: 22-Oct-2015 Intent ARTERY (09669)By: Fast DO, Chaparrita A Fast DO, Chaparrita A MAMMOGRAM, SCREENING, BOTH BREAST On: 22-Oct-2015 Intent (44024)By: Fast DO, Chaparrita A Fast DO, Chaparrita A Ultrasound - RenalBy: Fast DO, On: 14-Jul-2015 Intent Chaparrita A Fast DO, Chaparrita A Radiology - Knee - Left - Weight On: 11-Mar-2015 Intent BearingBy: Fast DO, Chaparrita A Fast DO, Chaparrita A Radiology - Knee - Right - Weight On: 11-Mar-2015 Intent BearingBy: Fast DO, Chaparrita A Fast DO, Chaparrita A Flu Vaccine (Quadrivalent) 93618Mv: On: 11-Feb-2015 Intent Fast DO, Chaparrita A Fast DO, Chaparrita A EKG (71743)By: Fast DO, Hcaparrita A On: 05-Nov-2014 Intent Fast DO, Chaparrita A Comments: ekg showed normal sinus rhythym, normal axis, no acute st/t wave changes left axis DRAIN/INJECT SMALL JOINT OR BURSA On: 07-Oct-2014 Intent ()By: Keri Singh MD MAMMOGRAM, SCREENING, BOTH BREAST On: 02-Aug-2014 Intent (53843)By: Fast DO, Chaparrita A Fast Comments: meera DO, Chaparrita A Cartoid DopplerBy: Fast DO, Chaparrita A On: 02-Aug-2014 Intent Fast DO, Chaparrita A DEXA SCAN AXIAL SKELETON (08248)By: On: 09-Apr-2014 Intent Fast DO, Chaparrita A Fast DO, Chaparrita A Prevnar 13 (06476)By: Ambrocio WOLFF, On: 30-Jan-2014 Intent Chaparrita A Fast DO, Chaparrita A Comments: Lot:[id number]:05/20Dose:0.5Route:imSite:l armGiven By:msVIS signed FLU VAC, SPLIT, >3 YEARS, INTRAMUSC On: 16-Jan-2014 Intent (21806)By: Chaparrita Albrecht DO A Ambrocio Comments: Lot #:[id number] date:12/2015Amount given:0.5mlRoute: IMSite given: left deltoidGiven by: CARMELINA Hook DO, Chaparrita A ADMINISTRATION OF INFLUENZA VIRUS On: 16-Jan-2014 Intent VACCINE (G0008)By: Ambrocio WOLFF, Chaparrita A Fast DO, Chaparrita A EKG (48662)By: Ambrocio WOLFF, Chaparrita A On: 17-Oct-2013 Intent Fast DO, Chaparrita A Comments: ekg showed normal sinus rhythym, left axis, no acute st/t wave changes Radiology - Chest- PA and LatBy: On: 17-Sep-2013 Intent Fast DO, Chaparrita A Fast DO, Chaparrita A Aerosol Treatment (49843)By: Ambrocio On: 17-Sep-2013 Intent DO, Chaparrita A Fast DO, Chaparrita A MRI - BrainBy: Fast DO, Chaparrita A On: 22-Jul-2013 Intent Fast DO, Chaparrita A Cartoid DopplerBy: Fast DO, Chaparrita A On: 20-Jul-2013 Intent Fast DO, Chaparrita A MAMMOGRAM, SCREENING, BOTH BREASTS On: 20-Jul-2013 Intent (66935)By: Ambrocio DO, Chaparrita A Fast DO, Chaparrita A Eprescribed prescriptions On: 20-Jul-2013 Intent (G8553)By: Fast DO, Chaparrita A Fast DO, Chaparrita A Eprescribed prescriptions On: 02-Feb-2013 Intent (G8553)By: Марина Concepcion FLU VAC, SPLIT, >3 YEARS, INTRAMUSC On: 03-Jan-2013 Intent (22819)By: Марина Concepcion Comments: Lot #:[id number] date:6.2014Amount given:0.5mlRoute: IMSite given: L dltdVIS and ABN signedGiven by: CARMELINA Hook ADMINISTRATION OF INFLUENZA VIRUS On: 03-Jan-2013 Intent VACCINE (G0008)By: Марина Concepcion CT - Abdomen & Pelvis (IV Contrast On: 17-Oct-2012 Intent Needed)By: Ambrocio WOLFF Chaparrita A Ambrocio Comments: patient will be calling to set up DO, Chaparrita A Eprescribed prescriptions On: 10-Oct-2012 Intent (G8553)By: Марина Concepcion Ear Irrigation (47097)By: [place], On: 13-Jun-2012 Intent Ivy Comments: Ear Irrigation performed on: right earAmount/color removed cerumen: light brown, small amount removedOUtcome:Pt toleratedUsed wax curettes Wax Currettes (03839)By: [place], On: 13-Jun-2012 Intent Ivy PNEUM VAC ADLT/IMUMNOSPR, SBC/INTRM On: 13-Jun-2012 Intent (51522)By: Chaparrita Albrecht DO A Ambrocio Comments: Lot:[id number]:09/09/13Dose:0.5mLRoute:IMSite:L armGiven By:BHUMI signed DO, Chaparrita A EKG (47728)By: Ambrocio WOLFF Chaparrita A On: 13-Jun-2012 Intent Fast DO, Chaparrita A Comments: ekg showed normal sinus rhythym, normal axis, no acute st/t wave changes MRI - BrainBy: Ambrocio DO, Chaparrita A On: 13-Jun-2012 Intent Ambrocio DO Chaparrita A Comments: yonatan ADMINISTRATION OF PNEUMOCOCCAL On: 13-Jun-2012 Intent VACCINE (G0009)By: Ambrocio WOLFF Chaparrita A Fast DO, Chaparrita A Eprescribed prescriptions On: 13-Jun-2012 Intent (G8553)By: Марина Concepcion MAMMOGRAM, SCREENING, BOTH BREASTS On: 28-Dec-2011 Intent (72493)By: Ambrocio DO Chaparrita A Fast DO, Chaparrita A DXA, BONE DENSITY, AXIAL SKELETON On: 28-Dec-2011 Intent (04911)By: Ambrocio WOLFF Chaparrita A Fast DO, Chaparrita A MRI - BrainBy: Ambrocio DO, Chaparrita A On: 28-Dec-2011 Intent Fast DO, Chaparrita A Comments: end of jan Cartoid DopplerBy: Fast DO, Chaparrita A On: 28-Dec-2011 Intent Fast DO, Chaparrita A Comments: jan Ultrasound - PelvisBy: Fast DO, On: 28-Dec-2011 Intent Chaparrita A Fast DO, Chaparrita A FLU VAC, SPLIT, >3 YEARS, INTRAMUSC On: 28-Dec-2011 Intent ([id number])By: Марина Concepcion Comments: Lot #:[id number] date:mount given:0.5mlRoute: IMSite given: left deltoidGiven by: CARMELINA Hook ADMINISTRATION OF INFLUENZA VIRUS On: 28-Dec-2011 Intent VACCINE ([id number])By: Марина Concepcion Aerosol Treatment ([id number])By: Ciesa On: 30-Nov-[address] - Abdomen & PelvisBy: Fast DO, On: 21-Sep-2011 Intent Chaparrita A Fast DO, Chaparrita A Comments: with special cuts through the kidney- october EKG ([id number])By: Марина Concepcion On: 15-Jun-2011 Intent Comments: ekg [...] On: 19-Jan-2011 Intent Needed)By: Chaparrita Albrecht DO Comments: Call results to Dr. Albrecht @ [phone] as soon as resulted please. DO, Chaparrita A Eprescribed prescriptions On: 11-Jan-2011 Intent ([id number])By: Fast DO, Chaparrita A Fast DO, Chaparrita A MAMMOGRAM, SCREENING, BOTH BREASTS On: 11-Jan-2011 Intent ([id number])By: Fast DO, Chaparrita A Fast DO, Chaparrita A CT - Sinuses CompleteBy: Fast DO, On: 11-Jan-2011 Intent Chaparrita A Fast DO, Chaparrita A Cartoid DopplerBy: Fast DO, Chaparrita A On: 11-Jan-2011 Intent Fast DO, Chaparrita A ADMINISTRATION OF INFLUENZA VIRUS On: 11-Jan-2011 Intent VACCINE ([id number])By: Марина Concepcion FLU VAC, SPLIT, >3 YEARS, INTRAMUSC On: 11-Jan-2011 Intent ([id number])By: Марина Concepcion Eprescribed prescriptions On: 12-Oct-2010 Intent ([id number])By: Ambrocio DO, Chaparrita A Fast DO, Chaparrita A Renal DopplerBy: Fast DO, Chaparrita A On: 12-Oct-2010 Intent Fast DO, Chaparrita A Cartoid DopplerBy: Fast DO, Chaparrita A On: 12-Oct-2010 Intent Fast DO, Chaparrita A Comments: sept TDAP VACCINE >7 IM ([id number])By: On: 13-May-2010 Intent Helena Tineo LPN Comments: Lot #[id number]-left deltoidgiven by:[facility] EKG ([id number])By: Марина Concepcion On: 13-May-2010 Intent Comments: ekg showed normal sinus rhythym, normal axis, no acute st/t wave changes Aerosol Treatment ([id number])By: Charlene On: 22-Dec-2009 Intent Johanna SANZ E Cartoid DopplerBy: Fast DO, Chaparrita A On: 01-Dec-2009 Intent Fast DO, Chaparrita A MAMMOGRAM, SCREENING, BOTH BREASTS On: 01-Dec-2009 Intent ([id number])By: Fast DO, Chaparrita A Fast DO, Chaparrita A DXA, BONE DENSITY, AXIAL SKELETON On: 01-Dec-2009 Intent ([id number])By: Fast DO, Chaparrita A Fast DO, Chaparrita A Ultrasound - SpleenBy: Fast DO, On: 17-Jun-2009 Intent Chaparrita A Fast DO, Chaparrita A EKG ([id number])By: Марина Concepcion On: 10-Mar-2009 Intent Comments: ekg showed normal sinus rhythym, normal axis, no acute st/t wave changes FLU VAC, SPLIT, >3 YEARS, INTRAMUSC On: 09-Jan-2009 Intent ([id number])By: Stacy Jorge Comments: Lot #[id number]-left deltoidDose0.5mlgiven by Marycarmen Jorge LPN ADMINISTRATION OF INFLUENZA VIRUS On: 09-Jan-2009 Intent VACCINE ([id number])By: Stacy Jorge MAMMOGRAM, SCREENING, BOTH BREASTS On: 04-Dec-2008 Intent ([id number])By: Fast DO, Chaparrita A Fast DO, Chaparrita A MAMMOGRAM, SCREENING, BOTH BREASTS On: 03-Sep-2008 Intent ([id number])By: Fast DO, Chaparrita A Fast DO, Chaparrita A FLU VAC, SPLIT, >3 YEARS, INTRAMUSC On: 16-Jan-2008 Intent ([id number])By: Janet Scherer RN Comments: Lot #: [id number] date: 09/10Amount given: 0.5 mlRoute: IMSite given: Left deltoidGiven by: Olivia Bell LPN ADMINISTRATION OF INFLUENZA VIRUS On: 16-Jan-2008 Intent VACCINE (G0008)By: Janet Scherer RN EKG ([id number])By: Fast DO, Chaparrita A On: 29-Aug-2007 Intent Fast DO, Chaparrita A Comments: done km ADMINISTRATION OF PNEUMOCOCCAL On: 29-Aug-2007 Intent VACCINE ([id number])By: Fast DO, Chaparrita A Fast DO, Chaparrita A PNEUM VAC ADLT/IMUMNOSPR, SBC/INTRM On: 29-Aug-2007 Intent ([id number])By: Fast DO, Chaparrita A Fast Comments: 0.5cc given im lt arm [id number] 02-13-08 DO, Chaparrita A DXA, BONE DENSITY, AXIAL SKELETON On: 29-Aug-2007 Intent ([id number])By: Fast DO, Chaparrita A Fast DO, Chaparrita A MAMMOGRAM, SCREENING, BOTH BREASTS On: 29-Aug-2007 Intent ([id number])By: Fast DO, Chaparrita A Fast DO, Chaparrita [...] Indication: Hypertension, benign Encounters Phone Encounter On: 20-Feb-2018 15:38 Encounter Diagnosis: [...] new people and be involved in the jew 0 bps are good and sugar looking [...] medical issues: she has been working with [email or web address] and trying to work on that- she got rid of respiratory infection but was sick for weeks and was on pred so her sugar up and chol up a bit- trying to add protein shakes drink more water- she is starting back at [facility]- diarrhea resolved- we did talk about [...] that she had episode where [facility] and she couldnt remember where she was- and happened one other time where she didnt recognize the roads- sister had alzheimer s- weight down because was sick- but coming back up- she hasnt done counseling with hospice has been thru before- she lonely- not necessarily unhappy- she doing self help she is singing with jew- -michael kang are all in low 100s-130- going to [facility] for a month next monthEncounter Diagnosis: Nonsmoker, [...] Eddie and bp is good she joined [employer] sugar up bit doi ng ice cream-the bone density reviewed little thinner she not exercising routienly until just recent at [employer] and sees kidney doc next week and [...] is sleeping well. Pa End: 10-Aug-2016 22:08 tieriver has been compliant with instructions. Current [...] maribel cordelia in hospice - going to [facility] end of month- too much to care [...] sleeps 8 hours per night. [facility] The medical issues the patient [...] - has etoh /drug addiction- sister in [facility] with alzheimers- she not depressed but has [...] Meningioma (Renamed from 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, 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, BRAIN/PERIOPERATIVE ASSISTANT NEC (794.09)) [facility] Visit [...] Meningioma (Renamed from 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, 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, BRAIN/PERIOPERATIVE ASSISTANT NEC (794.09)), Diabetes, Type II, controlled (250.00), [...] take byetta due to cost in [facility]- - takes ??lorazepam 1-2 times [...] Meningioma (Renamed from 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, 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, BRAIN/PERIOPERATIVE ASSISTANT NEC (794.09)), Colon Polyp [facility] [...] Meningioma (Renamed from 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, 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, BRAIN/PERIOPERATIVE ASSISTANT NEC (794.09)), OCCLUSION AND STENOSIS OF CAROTID [...] Meningioma (Renamed from 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, 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, BRAIN/PERIOPERATIVE ASSISTANT NEC (794.09)), Chronic glomerulonephritis with lesion of [...] Meningioma (Renamed from 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, 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, BRAIN/PERIOPERATIVE ASSISTANT NEC (794.09)), Other and unspecified hyperlipidemia (272.4), [...] Meningioma (Renamed from 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, 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, BRAIN/PERIOPERATIVE ASSISTANT NEC (794.09)) [facility] Office Visit [...] Meningioma (Renamed from 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, 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, BRAIN/PERIOPERATIVE ASSISTANT NEC (794.09)), Gerd (530.81), Hyperlipidemia, Unspecified (272.4), [...] Meningioma (Renamed from 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, 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, BRAIN/PERIOPERATIVE ASSISTANT NEC (794.09)), Hypertension,benign(401.1), OCCLUSION AND STENOSIS OF [...] Meningioma (Renamed from 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, 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, BRAIN/PERIOPERATIVE ASSISTANT NEC (794.09)), Diabetes, Type II, controlled (250.00), [...] Meningioma (Renamed from 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, 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, BRAIN/PERIOPERATIVE ASSISTANT NEC (794.09)), Hypertension,benign(401.1), Osteopenia (733.90), Depression (311.), [...] weight down 23 pounds- and trying joined [employer]- she feels well - she increased celexa [...] Meningioma (Renamed from 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, 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, BRAIN/PERIOPERATIVE ASSISTANT NEC (794.09)), Chronic glomerulonephritis with lesion of [...] Meningioma (Renamed from 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, 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, BRAIN/PERIOPERATIVE ASSISTANT NEC (794.09)) End: 26-Jan-2011 16:53 [facility] Office Visit On: 19-Jan-2011 14:30 Encounter Diagnosis: brain tumor End: 21-Sep-2011 8:09 [facility] Phone Encounter On: 19-Jan-2011 13:41 Encounter Diagnosis: 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, 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, BRAIN/PERIOPERATIVE ASSISTANT NEC (794.09) End: 19-Jan-2011 13:44 [facility] [...] Follow up, Laboratory Test Results - Date: (2/24/09). Encounter Diagnosis: Diabetes, Type II, controlled (250.00), [...] (V04.81), Degenerative Disc Disease - Lumbar (722.52), [facility] [place] [facility] Office [...] Disease - Lumbar (722.52), Osteopenia (733.90), Hypertension,benign(401.1), [facility] [place] [facility] Historical Summary On: 30-Aug-2007 [...] and she would like to s braxton Santana-- she has white coat sx- mood is good on lexapro Encounter Diagnosis: Hypertension,benign(401.1), Diabetes, Type II, controlled (250.00), arthritis,unspecified (716.90), Other and unspecified hyperlipidemia (272.4), fsgs, LOW BACK PAIN WITH RADICULOPATHY (724.4) [facility] Payers MedicareAARP/[facility] HEALTH SYSTEMGAGAN ALBERT; olivia guarantor
--- OUTSIDE RECORDS SUMMARY | 2018-06-25 21:57 | XMS RPT_ITS | Continuity of Care Document ---
:1940 Author Organization [facility] Address [address] [place] [address] Phone Care Team Providers Name Role Phone [...] tumor Status: Active Carotid stenosis (I65.29, 433.10) Comments: up to date continue working on risk factor modification Status: Active Carotid stenosis (I65.29, 433.10) Status: Active Carotid stenosis, asymptomatic, right (I65.21, [...] Knee pain, unspecified laterality (719.46) Comments: Valorie:lot: [id number]: 09/20site/route: L knee Status: Active Leg pain, [...] spray daily for 0 days Quantity: 1 {Benton} Refills: 0 Ordered:04-May-2016 SHONDA Andrade Start : [...] for 0 days Refills: 0 Ordered:07-Mar-2009 Марина oCncepcion Start : 07-Mar-2009 End : 07-Mar-2009 Discontinued [...] and dispense 8 ounes TOTAL mixed solutionCal [id number] if questions SPECTAZOLE, 1% (External Cream) 1 [...] End : 11-Feb-2015 Discontinued Comments:th[age], called to [facility] 08-30-14 [facility] Allergies and Adverse Reactions Name Dates Details [...] Meningioma (Renamed from 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, 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, BRAIN/CONTROL TOWER OPERATOR NEC) (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 2016 right Cholecystectomy Completed lumbar kwcrkk==8307 Completed Tonsillectomy Completed Date Value Details 19-Dec-2017 Echocardiogram Complete Result: Comments: See Note; NOTES: [facility] Cardiovascular Services [address] [place] [address] Echo Complete 12/19/17 0800 MR#: [id number] Acct: [id number] Name: CLARENCE ALBERT ep #: [id number] : 1940 77 From: Chuckie Cormier MD Attending Dr: Chaparrita Albrecht DO Status: REG CLI Ordering Dr: Chaparrita Albrecht DO Date: 12/19/17 Location: [facility] Sex: F C Admitted: Reason For [...] Dictated: 12/19/17 0800 Date Transcribed: 12/19/17 1022 Gutter Mouth Cutter: Signed 07-Dec-2017 Carotid Duplex Ultrasound Result: Comments: See Note; NOTES: [facility] Cardiovascular Services [address] [place] [address] Carotid Duplex Ultrasound 12/06/17 0901 MR#: [id number] Acct: [id number] Name: CLARENCE WHITTINGTON Rep #: [id number] : 1940 77 From: Anurag Loya MD [...] the left vertebral artery. Procedure Carotid Duplex 87067. Exam performed in department. Interpretation Summary Mild (<50%) stenosis right extracranial internal carotid. Mild (<50%) stenosis left extracranial internal carotid. Flow within the vertebral arteries is antegrade bilaterally. __ __ Ordering Physician: Chaparrita Albrecht Performed By: Margot Benton RVT and Student 12/07/17 0809 Date Anurag Loya MD CC: Chaparrita Albrecht DO Date Dictated: 12/06/17900 Date Transcribed: 12/07/17808 Gutter Mouth Cutter: Signed 06-Dec-2017 SCREENING MAMM (CAD), BILAT Result: Comments: See Note; NOTES: [facility] Imaging Services [address] [place] [address] SCREENING MAMM (CAD), BILAT MR#: [id number] Acct: [id number] Name: CLARENCE ALBERT Rep #: [id number] : 1940 F 77 From: Misael Hebert MD PCP: Chaparrita Albrecht DO Status: REG CLI Study: SCREENING MAMM (CAD), BILAT Date of Exam: 12/06/17 Exam# [id number] Ordering Dr: Chaparrita Albrecht DO MAMM OGRAPHY [...] delay biopsy of a clinically suspicious abnormality. [id number] Electronically Signed: Misael Hebert MD at 15:31 EDT Tel [phone], Se rvice support , CC: Chaparrita Albrecht DO Gutter Mouth Cutter: Signed 10-Jun-2017 Brain W/WO Contrast Result: Comments: See Note; NOTES: [facility] Imaging Services [address] [place] [address] Brain W/WO Contrast MR#: [id number] Acct: [id number] Name: CL[place] ALBERT Rep #: [id number] : 1940 F 77 From: Laya Montilla MD PCP: Chaparrita Albrecht DO Status: REG CLI Study: Brain W/WO Contrast Date of Exam: 06/10/17 Exam# [id number] Ordering Dr: Chaparrita Albrecht DO STUDY: MRI [...] Service support , CC: Chaparrita Albrecht DO Gutter Mouth Cutter: Signed 05-May-2017 Chest PA and Lateral Result: Comments: See Note; NOTES: [facility] Imaging Services [address] [place] [address] Chest PA and Lateral MR#: [id number] Acct: [id number] Name: CL[place] ALBERT Rep #: [id number] : 1940 F 77 From: Edwar Patino MD PCP: Chaparrita Albrecht DO Status: REG CLI Study: Chest PA and Lateral Date of Exam: 05/05/17 Exam# [id number] Ordering Dr: Keri Singh MD STUDY: X-RAY [...] CC: Keri Singh MD; Chaparrita Albrecht DO Gutter Mouth Cutter: Signed 02-Nov-2016 Dexa Bone Density Study (HP) Result: Comments: See Note; NOTES: [facility] Imaging Services [address] [place] [address] Verdana 4d Dexa Bone Density Study (HP) MR#: [id number] Acct: [id number] Name: LYNNE ALBERT Rep #: [id number] : 1940 F 76 From: Misael Hebert MD PCP: Chaparrita Albrecht DO Status: REG CLI Study: Dexa Bone Density Study (HP) Date of Exam: 11/02/16 Exam# [id number] Ordering Dr: Laura DO STUDY: DUAL ENERGY [...] Misael Hebert MD at 11:02 EDT Tel [phone], Service support , CC: Chaparrita Albrecht DO Gutter Mouth Cutter: Signed 02-Nov-2016 SCREENING MAMM (CAD), BILAT Result: Comments: See Note; NOTES: [facility] Imaging Services [address] [place] [address] Verdana 4d SCREENING MAMM (CAD), BILAT MR#: [id number] Acct: [id number] Name: [place] ALBERT Rep #: [id number] : 1940 F 76 From: Misael Hebert MD PCP: Chaparrita Albrecht DO Status: [facility] CLI Study: SCREENING MAMM (CAD), BILAT Date of Exam: 11/02/16 Exam# [id number] Ordering Dr: Case Albrecht DO MAMMOGRAPHY - [...] delay biopsy of a clinically suspicious abnormality. [id number] Electronically Signed: Misael Hebert MD at 12:44 EDT Tel [phone], Service support , CC: Chaparrita Albrecht DO Gutter Mouth Cutter: Signed 05-Aug-2016 Venous Duplex Lower Extremity Result: Comments: See Note; NOTES: [facility] Cardiovascular Services [address] [facility] [address] Venous Duplex US, Unilateral 08/05/16 1053 MR#: [id number] Acct: [id number] Name: [place] WEI Rep #: [id number] : 1940 76 From: Elvin Natarajan MD [...] Dictated: 08/05/16 1053 Date Transcribed: 08/05/16 1127 Gutter Mouth Cutter: Signed 27-May-2016 Knee 4 or More Views Result: Comments: See Note; NOTES: [facility] Imaging Services [address] [place] [address] Verdana 4d Knee 4 or More Views MR#: [id number] Acct: [id number] Name: [place] ALBERT Rep #: [id number] : 1940 F 76 From: Misael Hebert MD PCP: Chaparrita Albrecht DO Status: REG CLI Study: Knee 4 or More Views Date of Exam: 05/27/16 Exam# [id number] Ordering Dr: Kylah Linda UDY: X-RAY - [...] MD at 10:41 EST , Service support [phone], CC: Chaparrita Albrecht DO; Kylah Linda DO Gutter Mouth Cutter: Signed 13-May-2016 Sinus/Facial Bone Result: Comments: See Note; NOTES: [facility] Imaging Services [address] [place] [address] Verdana 4d Sinus/Facial Bone MR#: [id number] Acct: [id number] Name: [place] ALBERT Rep #: [id number] : 1940 F 76 From: Godwin Winter MD PCP: Chaparrita Albrecht DO Status: REG CLI Study: Sinus/Facial Bone Date of Exam: 05/13/16 Exam# [id number] Ordering Dr: Alejandro Silverman MD STUDY: CT [...] MD at 7:35 EST , Service support [phone], CC: Chaparrita Albrecht DO; Alejandro Silverman MD Gutter Mouth Cutter: Signed 21-Apr-2016 Emergency Department Summary Result: Comments: See Note; NOTES: [facility] Medical Records Department [address] [place] [address] Emergency Department Summary MR#: [id number] Acct: [id number] Name: [place] ALBERT Rep #: [id number] : 1940 76 From: Carissa Murphy MD [...] epistaxis. CARISSA MURPHY MD T: NTS JOB: [id number] 04/21/1606 <Electronically signed by Carissa Murphy MD> Date Carissa donovan MD Cosigner Signature (If Indicated): Date CC: Chaparrita Albrecht DO Date Dictated: 04/20/161711 Date Transcribed: 04/20/161711 Gutter Mouth Cutter: Signed 20-Apr-2016 Discharge Instruction Result: Comments: See Note; NOTES: [facility] Medical Records Department [facility] [place] [address] Discharge Instruction 04/20/16 1303 MR#: [id number] Acct: [id number] Name: [place] ALBERT Rep #: [id number] : 1940 76 From: Carissa Murphy MD [...] your Primary Care Provider. Call [facility] ([phone]) or report to the closest Emergency Room. Call 911 if necessary. 04/20/16 1645 <Electronically signed by Carissa Murphy MD> Date Carissa Murphy MD Cosigner Signature (If I ndicated): Date CC: Chaparrita Albrecht DO 02-Nov-2015 Carotid Duplex Ultrasound Result: Comments: See Note; NOTES: [facility] Cardiovascular Services [address] [place] [address] Carotid Duplex Ultrasound 10/30/15 1100 MR#: [id number] Acct: [id number] Name: [place] ALBERT Rep #: [id number] : 1940 75 From: Elvin Natarajan MD [...] the left vertebral artery. Procedure Carotid Duplex 15921. The exam was diagnostic. Exam performed in [...] Dictated: 10/30/15 1100 Date Transcribed: 11/02/15 1143 Gutter Mouth Cutter: Signed 30-Oct-2015 Bilat Scrn Digital AND CAD Result: Comments: See Note; NOTES: [facility] Imaging Services [address] [place] [address] Verdana 4d Bilat Scrn Digital AND CAD MR#: [id number] Acct: [id number] Name: [place] ALBERT Rep #: [id number] : 1940 F 75 From: Andres Brady MD PCP: Chaparrita Albrecht DO Status: REG CLI Study: Bilat Scrn Digital AND CAD Date of Exam: 10/30/15 Exam# [id number] Ordering Dr: Chaparrita Albrecht DO MAMMOGRAPHY - [...] biop sy of a clinically suspicious abnormality. [id number] Electronically Signed: Andres Brady MD at 17:48 EDT Tel , Service support [phone], CC: Chaparrita Albrecht DO Gutter Mouth Cutter: Signed 30-Oct-2015 Saad Jaffe Digital AND CAD Result: Comments: See Note; NOTES: [facility] Imaging Services [address] [place] [address] Verdana 4d Billila Jaffe Digital AND CAD MR#: [id number] Acct: [id number] Name: [place] ALBERT Rep #: [id number] : 1940 F 75 From: Andres Brady MD PCP: Chaparrita Albrecht DO Status: REG CLI Study: Saad Jaffe Digital AND CAD Date of Exam: 10/30/15 Exam# [id number] Ordering Dr: Chaparrita Albrecht DO MAMMOGRAPHY - [...] abnormalities are identified. CC: Chaparrita Albrecht DO Gutter Mouth Cutter: Signed 22-Oct-2015 ELECTROCARDIOGRAM, COMPLETE (ECG) (08745) Comments: ekg showed normal sinus rhythym, normal axis, no acute st/t wave changes no change Result: [MEASUREMENTS ANALYSIS] Date of Test: 10/22/2015 14:41:29; Heart Rate: 71; [place] Interval: 140; QRS: 94; QT Interval: 384; Corrected QT Interval (QTc): 403; P Wave [place]: 58; QRS Wave [place]: -3; T Wave [place]: 56; Blood Pressure: 128/76 [ECG DIAGNOSTIC STATEMENTS] Date of Test: 10/22/2015 14:41:29; Summary: Sinus Rhythm Low voltage -possible pulmonary disease. ABNORMAL 22-Jul-2015 Kidney and Bladder Result: Comments: See Note; NOTES: [facility] Imaging Services [address] [place] [address] Verdana 4d Kidney and Bladder MR#: [id number] Acct: [id number] Name: ALBERTYaniv Rep #: [id number] : 1940 F 75 From: Nir Sanchez MD PCP: Chaparrita Albrecht DO Status: REG CLI Study: Kidney and Bladder Date of Exam: 07/22/15 Exam# [id number] Ordering Dr: Chaparrita Albrecht DO STUDY: RENAL [...] Service support , CC: Chaparrita Albrecht DO Gutter Mouth Cutter: Signed 11-Mar-2015 Knee 4 or More Views Result: Comments: See Note; NOTES: [facility] Imaging Services [address] [place] [address] Verdana 4d Knee 4 or More Views MR#: [id number] Acct: [id number] Name: [place] ALBERT Rep #: [id number] : 1940 F 74 From: Trent Cameron DO PCP: Chaparrita Albrecht DO Status: REG CLI Study: Knee 4 or More Views Date of Exam: 03/11/15 Exam# [id number] Ordering Dr: Case Albrecht DO STUDY: X-RAY [...] at 7:45 EST Tel , Service support [phone], RAD/Knee 4 or More Views IMPRESSION: Degener ative changes within the knee. No acute fracture. Small suprapatellar effusion. Electronically Signed: Trent Cameron DO at 7:45 EST Tel , Service support [phone], CC: Chaparrita Albrecht DO Gutter Mouth Cutter: Signed 11-Mar-2015 Knee 4 or More Views Result: Comments: See Note; NOTES: [facility] Imaging Services [address] [place] [address] Verdana 4d Knee 4 or More Views MR#: [id number] Acct: [id number] Name: CL[place]ENCE ALBERT Rep #: [id number] : 1940 F 74 From: Trent Cameron DO PCP: Chaparrita Albrecht DO Status: REG CLI Study: Knee 4 or More Views Date of Exam: 03/11/15 Exam# [id number] Ordering Dr: Case Albrecht DO STUDY: X-RAY [...] at 7:46 EST Tel , Service support [phone], RAD/Knee 4 or More Views IMPRESSION: Mild degenerative changes. No acute bony abnormality. Electronically Signed: Trent Cameron DO at 7:46 EST Tel , Service support [phone], CC: Chaparrita Albrecht DO Gutter Mouth Cutter: Signed 18-Oct-2014 Carotid Duplex Ultrasound Result: Comments: See Note; NOTES: [facility] Cardiovascular Services [address] [place] [address] Carotid Duplex Ultrasound 10/18/14 1331 MR#: [id number] Acct: [id number] Na me: [place] ALBERT Rep #: [id number] : 1940 74 From: Elvin Natarajan MD [...] the left vertebral artery. Procedure Carotid Duplex 41302. The exam was diagnostic. Exam performed in [...] Dictated: 10/18/14 1331 Date Transcribed: 10/18/14 1616 Gutter Mouth Cutter: Signed 18-Oct-2014 Bilat Scrn Digital AND CAD Result: Comments: See Note; NOTES: [facility] Imaging Services [address] [place] [address] Breast Imaging Report MR#: [id number] Acct: [id number] Name: [place] ALBERT Rep #: [id number] : 1940 F 74 From: Misael Hebert MD PCP: Chaparrita Albercht DO Status: REG CLI Study: Saad Scrn Digital AND CAD Date of Exam: 10/18/14 Exam# [id number] Ordering Dr: Chaparrita Albrecht DO MAMMOGRAPHY - [...] Misael redmond MD at 13:44 EDT Tel [phone], Service support [phone], CC: Chaparrita Albrecht DO Gutter Mouth Cutter: Signed 09-Jul-2014 Dexa Bone Density Study (HP) Result: Comments: See Note; NOTES: [facility] Imaging Services [address] [place] [address] Bone Density Report MR#: [id number] Acct: [id number] Name: [place] ALBERT Rep #: [id number] : 1940 F 74 From: Misael Hebert MD PCP: Chaparrita Albrecht DO Status: REG CLI Study: Dexa Bone Density Study (HP) Date of Exam: 07/09/14 Exam# [id number] Ordering Dr: Chaparrita Albrecht DO STUDY: DUAL [...] Angel Hebert MD at 14:55 EDT Tel [phone], Service support [phone], CC: Chaparrita Albrecht DO Gutter Mouth Cutter: Signed 17-Sep-2013 Chest PA and Lateral Result: Comments: See Note; NOTES: [facility] Imaging Services [address] [place] [address] Radiology Report MR#: [id number] Acct: [id number] Name: CLARENCE ALBERT Rep #: [id number] : 1940 F 73 From: David Bennett MD PCP: Chaparrita Albrecht DO Status: REG CLI Study: Chest PA and Lateral Date of Exam: 09/17/13 Exam# [id number] Ordering Dr: Chaparrita Albrecht DO STUDY: X-RAY [...] MD at 20:44 EDT , Service support [phone], RAD/Chest PA and Lateral IMPRESSION: No focal infiltrate or edema. Electronic ally Signed: David Bennett MD at 20:44 EDT , Service support [phone], CC: Chaparrita Albrecht DO Gutter Mouth Cutter: Signed 17-Sep-2013 Spirometry (23232) Result: 29-Aug-2013 Carotid Duplex Ultrasound Result: Comments: See Note; NOTES: [facility] Cardiovascular [address] [address] Carotid Duplex Ultrasound 08/24/13 0939 MR#: [id number] Acct: [id number] Chalo e: CLARENCE ALBERT Rep #: [id number] : 1940 73 From: Anurag Loya MD [...] in the left bulb. Procedure Carotid Duplex 43860. Exam perfor med in department. Interpretation Summary Mild (<50%) stenosis right extracranial internal carotid. Mild (<50%) stenosis left extracranial internal carotid. Flow within the vertebra l arteries is antegrade bilaterally. Ordering Physician: Chaparrita Albrecht Performed By: Kendal Benton RVT : Chaparrita Albrecht DO Date Dictated: 08/24/13 0939 Date Transcribed: 08/29/13 1118 Gutter Mouth Cutter: Signed Immunization Name Dates Details Influenza (3 years and up) on: 16-Jan-2008 Comments: Lot #: [id number] date: 09/10Amount given: 0.5 mlRoute: IMSite given: Left deltoidGiven by: Olivia Bell LPN Influenza (3 years and up) on: 09-Jan-2009 Comments: Lot #[id number]-left deltoidDose0.5mlgiven by Marycarmen Jorge LPN Pneumococcal (2 years and up) on: 29-Aug-2007 Comments: 0.5cc given im lt arm [id number] exp 02-13-08 Family History Unknown Family Member [...] 0.00 cm Results Date Description Value Details 66-Hnl-524896:24 HgA1C , Office (89917) HgA1C , Office 6.5 % (Normal) Range: 4.6 - 7.1 :14 LIPID PANEL (95681) Comments: PATIENT WAS FASTINGPERFORMED BY: [facility] Jbkhds2630 [facility] [id number] LDL/HDL Ratio 1.1 {ratio} (Normal) Range: 0.0-3.2 [...] (Normal) Range: 100-199 :14 Vitamin D Hydroxy (71693) Comments: PATIENT WAS FASTINGPERFORMED BY: [facility] ImaginationSaint [facility] Hospital at DoverKltyzg5397 [facility] [id number] Vitamin D, 25-Hydroxy 37.8 ng/mL (Normal) Range: 30.0-100.0 Comments: Vitamin D deficiency has been defined by the Mutual ofMagruder Memorial Hospitalcine and an Endocrine Society practice guideline as alevel of serum 25-OH vitamin D less than 20 ng/mL (1,2).The Endocrine Society went on to further define vitamin Dinsufficiency as a level between 21 and 29 ng/mL (2).1. IOM (Mutual of Medicine). 2010. Dietary reference intakes for calcium and D. [place]: The National AcademHiGear Press.2. Mira MF, Rosette LOPEZ, Tommy SWAIN, et al. Evaluation, treatment, and prevention of vitamin D deficiency: an Endocrine Society clinical practice guideline. JCEM. 2010; 96(7):1911-30. :14 CBC with auto diff (92441) Comments: PATIENT WAS FASTINGPERFORMED BY: [facility] Jfbxbs5414 [facility] [id number] Immature Grans (Abs) 0.0 {x10E3/uL} (Normal) Range: [...] WAS FASTINGPERFORMED BY: LabCoSaint [facility] Hospital at DoverCysbsj2227 [facility] [id number] (09733) ALT (SGPT) 10 [iU]/L (Normal) Range: 0-32 [...] CREATININE RATIO Comments: PATIENT WAS FASTINGPERFORMED BY: For Your ImaginationSaint [facility] Hospital at DoverEzsjms8876 [facility] [id number] (66505) AND (32844) Alb/Creat Ratio 4213.3 {mg/g_creat} (Abnormal) Range: 0.0-30.0 Albumin, Urine 3206.3 ug/mL (Normal) Comments: Results confirmed ondilution. Creatinine, Urine 76.1 mg/dL (Normal) :40 CBC & PLATELETS (AUTO) (85793) Comments: please fax to Dr. Austin- [phone]; PATIENT WAS FASTINGPERFORMED BY: For Your ImaginationSaint [facility] Hospital at DoverRupjsn2018 [facility] [id number] Platelets 148 {x10E3/uL} (Abnormal) Range: 150-379 RDW [...] PANEL Comments: please fax to Dr. Austin- [phone]; PATIENT WAS FASTINGPERFORMED BY: [facility]6370 [facility] [id number] Information: 872738,S10183 FX DR. SANTANA (24014) Albumin 3.1 g/dL (Abnormal) Range: 3.5-4.8 Phosphorus [...] 8-27 Glucose 133 mg/dL (Abnormal) Range: 65-99 73-Fpd-75526:40 MAGNESIUM (17215) Comments: please fax to Dr. Austin- [phone]; PATIENT WAS FASTINGPERFORMED BY: [facility] Okjlmu8667 [facility] [id number] Magnesium 1.9 mg/dL (Normal) Range: 1.6-2.3 73-Fhl-32065:40 CALCIFEDIOL (91658) Comments: please fax to Dr. Austin- [phone]; PATIENT WAS FASTINGPERFORMED BY: LabFuelMyBlogSaint Clare's Hospital at DoverIojgor9760 [facility] [id number] Vitamin D, 25-Hydroxy 29.4 ng/mL (Abnormal) Range: 30.0-100.0 Comments: Vitamin D deficiency has been defined by the Mutual ofMedicine and an Endocrine Society practice guideline as alevel of serum 25-OH vitamin D less than 20 ng/mL (1,2).The Endocrine Society went on to further define vitamin Dinsufficiency as a level between 21 and 29 ng/mL (2).1. IOM (Mutual of Medicine). 2010. Dietary reference intakes for calcium and D. [place]: The National Academies Press.2. Mira OLIVEIRA, Rosette LOPEZ, Tommy SWAIN, et al. Evaluation, treatment, and prevention of vitamin D deficiency: an Endocrine Society clinical practice guideline. JCEM. 2010; 96(7):1911-30. :40 PARATHORMONE (47087) Comments: please fax to Dr. Austin- [phone]; PATIENT WAS FASTINGPERFORMED BY: EVE [facility] Hmpana[address] [place] [id number] PTH, Intact 22 pg/mL (Normal) Range: 15-65 :30 COLON BIOPSY (CHOOSE See Note (Normal) Comments: [place] [address] [place], [address] SITE) Comments: Patient: CL[place] ALBERT : 1940 (77/F) Acct Num: [id number] Phys: Marcus Caldera Unit Num: [id number] Loc: [facility] Specimen: [id number] Received: 09/16/171528 Spec Type: C OLON BX [...] one cassette. / Elsi 09/19/17 TC:1 CPT: 43182 x2 HEADER OPERATION: Colonoscopy PRE-OP DIAGNOSIS: History [...] NOT FASTINGPERFORMED BY: LabCoSaint Clare's Hospital at DoverIlsnus5009 [facility] [id number] (40671) ALT (SGPT) 14 [iU]/L (Normal) Range: 0-32 [...] (Abnormal) Range: 65-99 :07 HgA1C , Office (38193) HgA1C , Office 7.2 % (Abnormal) Range: 4.6 - 7.1 :37 Clostridium difficile Toxin Comments: PATIENT NOT FASTINGPERFORMED BY: LabCoSaint Clare's Hospital at DoverTtdolc5767 [facility] [id number] A+B, EIA (63644) C difficile Toxins A+B, EIA Negative (Normal) :37 LEUKOCYTE COUNT, FECAL (58401) Comments: PATIENT NOT FASTINGPERFORMED BY: [facility]6370 [facility] [id number] Result 1 NWBC (Normal) Comments: No white blood cells seen. White Blood Cells (WBC), Final report (Normal) Stool :37 OVA & PARASITE DIR SMEAR Comments: PATIENT NOT FASTINGPERFORMED BY: [facility]6370 [facility] [id number] (55156) Result 1 NOCP (Normal) Comments: No ova, cysts, or parasites seen. Ova + Parasite Exam Final report (Normal) Comments: These results were obtained using wet preparation(s) and trichromestained smear. This test does not include testing for Cryptosporidiumparvum, Cyclospora, or Microsporidia. :37 SETH CULTURE-STOOL (88114) Comments: PATIENT NOT FASTINGPERFORMED BY: [facility]6370 [facility] [id number] Information: SRC:ST SRC:ST E coli Shiga Toxin EIA Negative (Normal) Result 1 NCI (Normal) Comments: No Campylobacter species isolated. Campylobacter Culture Final report (Normal) Result 1 NSS (Normal) Comments: No Salmonella or Shigella recovered. Salmonella/Shigella Screen Final report (Normal) :06 Renal function Panel Comments: fax copy to Dr. Santana [phone]; A courtesy copy of this report has been sent [phone].PATIENT NOT FASTINGPERFORMED BY: [facility]6370 [facility] [id number] Information: NURSE DRAW (99089) Albumin 3.5 g/dL (Normal) Range: 3.5-4.8 Phosphorus [...] copy of this report has been sent [phone].PATIENT NOT FASTINGPERFORMED BY: [facility] [id number] :02 Range: 15-65 Vitamin D, 25-Hydroxy 34.7 ng/mL (Normal) Comments: A courtesy copy of this report has been sent [phone].PATIENT NOT FASTINGPERFORMED BY: [employer] [id number] :02 Range: 30.0-100.0 Comments: Vitamin D deficiency has been defined by the Mutual ofMedicine and an Endocrine Society practice guideline as alevel of serum 25-OH vitamin D less than 20 ng/mL (1,2).The Endocrine Society went on to further define vitamin Dinsufficiency as a level between 21 and 29 ng/mL (2).1. IOM (Mutual of Medicine). 2010. Dietary reference intakes for calcium and D. [place]: The National Academies Press.2. Mira MF, Rosette LOPEZ, Tommy SWAIN, et al. Evaluation, treatment, and prevention of vitamin D deficiency: an Endocrine Society clinical practice guideline. JCEM. 2010; 96(7):1911-30. 0-Iip-476388:02 MICROALBUMIN: CREATININE RATIO Comments: send results to Dr. Santana fax: [phone]; A courtesy copy of this report has been sent [phone].PATIENT NOT FASTINGPERFORMED BY: [employer] Mvkuze6284 [employer] [facility] [id number] (13668) AND (35099) Alb/Creat Ratio 4191.2 {mg/g_creat} (Abnormal) Range: 0.0-30.0 Albumin, Urine 2380.6 ug/mL (Normal) Comments: Results confirmed ondilution. Creatinine, Urine 56.8 mg/dL (Normal) 6-Clp-671066:02 CBC, PLATELETS & MANUAL Comments: send results to Dr. Santana fax: [phone]; A courtesy copy of this report has been sent [phone].PATIENT NOT FASTINGPERFORMED BY: LabCoSaint Clare's Hospital at DoverFfyewd9073 [facility] [id number] Information: VIT D25, PTH DIFF (43788) Immature Grans (Abs) 0.0 {x10E3/uL} (Normal) Range: [...] 3.77-5.28 WBC 5.4 {x10E3/uL} (Normal) Range: 3.4-10.8 3-Xee-763753:02 MAGNESIUM (22468) Comments: send results to Dr. Santana fax: [phone]; A courtesy copy of this report has been sent [phone].PATIENT NOT FASTINGPERFORMED BY: [employer]70 [facility] [id number] Magnesium, Serum 1.8 mg/dL (Normal) Range: 1.6-2.3 8-Zyh-238732:02 RENAL FUNCTION PANEL (63593) Comments: send results to Dr. Santana fax: [phone]; A courtesy copy of this report has been sent [phone].PATIENT NOT FASTINGPERFORMED BY: [employer] [facility] [id number] Albumin, Serum 3.7 g/dL (Normal) Range: 3.5-4.8 [...] Glucose, Serum 119 mg/dL (Abnormal) Range: 65-99 4-Ljm-860450:07 LIPID PANEL (39629) Comments: PATIENT WAS FASTINGPERFORMED BY: [employer]6370 [facility] [id number] LDL/HDL Ratio 1.4 {ratio} (Normal) Range: 0.0-3.2 Comments: LDL/HDL Ratio Men Women 1/2 Avg.Risk 1.0 1.5 Av g.Risk 3.6 3.2 2X Avg.Risk 6.2 5.0 3X Avg.Risk 8.0 6.1 LDL Cholesterol Calc 102 mg/dL (Abnormal) Range: 0-99 VLDL Cholesterol Cesar 17 mg/dL (Normal) Range: 5-40 HDL Cholesterol 75 mg/dL (Normal) Triglycerides 84 mg/dL (Normal) Range: 0-149 Cholesterol, Total 194 mg/dL (Normal) Range: 100-199 1-Mtj-817807:07 CBC W/AUTO DIFF WBC (61622) Comments: PATIENT WAS FASTINGPERFORMED BY: LabCo Qxprll2919 [facility] [id number] Immature Grans (Abs) 0.0 {x10E3/uL} (Normal) Range: [...] 3.77-5.28 WBC 4.8 {x10E3/uL} (Normal) Range: 3.4-10.8 3-Pdj-697388:07 METABOLIC PANEL, COMPREHENSIVE Comments: PATIENT WAS FASTINGPERFORMED BY: [facility] Yiscke3490 [address] [facility] [id number] (74714) ALT (SGPT) 14 [iU]/L (Normal) Range: 0-32 [...] 8-27 Glucose 158 mg/dL (Abnormal) Range: 65-99 8-Hrq-136991:07 VITAMIN B-12 (CYANOCOBALAMIN) Comments: PATIENT WAS FASTINGPERFORMED BY: EVE LabCoSaint Clare's Hospital at DoverWkhsga5761 [facility] [id number] (81671) Vitamin B12 771 pg/mL (Normal) Range: 232-1245 13-May-20170:00 CDIFF (Molecular) Comments: [place] [address] [place], [address] CDIFF See Note (Normal) Comments: Cdiff-MolecularNormal Reference Range = Negative C. Diff DNA Negative- No toxigenic C. Diff DNA DetectedNAAT METHOD Testing was performed using nucleic acid amplification :32 Rapid Flu (04390 x 2) Influenza A Ag Negative (Normal) :35 CBC with auto diff (15971) Comments: PATIENT WAS FASTINGPERFORMED BY: [facility] Bnmzyh7694 [facility] [id number] Immature Grans (Abs) 0.0 {x10E3/uL} (Normal) Range: [...] WAS FASTINGPERFORMED BY: LabCoSaint Clare's Hospital at DoverNzamdi7750 [facility] [id number] (75462) ALT (SGPT) 16 [iU]/L (Normal) Range: 0-32 [...] Glucose, Serum 145 mg/dL (Abnormal) Range: 65-99 99-Tpo-054808:51 HgA1C , Office (52043) HgA1C , Office 6.7 % (Normal) Range: 4.6 - 7.1 :50 CALCIFEDIOL (53706) Comments: A courtesy copy of this report has been sent [phone].PATIENT WAS FASTINGPERFORMED BY: [employer]6370 [place]rend[place] [id number] Vitamin D, 25-Hydroxy 40.7 ng/mL (Normal) Range: 30.0-100.0 Comments: Vitamin D deficiency has been defined by the Mutual ofMagruder Memorial Hospitalcine and an Endocrine Society practice guideline as alevel of serum 25-OH vitamin D less than 20 ng/mL (1,2).The Endocrine Society went on to further define vitamin Dinsufficiency as a level between 21 and 29 ng/mL (2).1. IOM (Mutual of Medicine). 2010. Dietary reference intakes for calcium and D. [place]: The National Academies Press.2. Mira MF, Rosette LOPEZ, Tommy SWAIN, et al. Evaluation, treatment, and prevention of vitamin D deficiency: an Endocrine Society clinical practice guideline. JCEM. 2010; 96(7):1911-30. 3-Dgf-674998:50 PTH (PARATHORMONE) (43523) Comments: A courtesy copy of this report has been sent [phone].PATIENT WAS FASTINGPERFORMED BY: [employer]70 [facility]KeCommunity [facility] [id number] PTH, Intact 20 pg/mL (Normal) Range: 15-65 7-Xmk-566440:50 MICROALBUMIN: CREATININE RATIO Comments: A courtesy copy of this report has been sent [phone].PATIENT WAS FASTINGPERFORMED BY: [employer]6370 [facility]KeCommunity [facility] [id number] (11709) AND (81806) Microalb/Creat Ratio 4376.0 {mg/g_creat} (Abnormal) Range: 0.0-30.0 Microalbumin, Urine 3369.5 ug/mL (Normal) Comments: Results confirmed ondilution. Creatinine, Urine 77.0 mg/dL (Normal) 3-Gvh-046199:50 Renal function Panel Comments: A courtesy copy of this report has been sent [phone].PATIENT WAS FASTINGPERFORMED BY: [employer]70 [facility] [id number] Information: FX DR. SANTANA [phone] (10256) Albumin, Serum 3.8 g/dL (Normal) Range: 3.5-4.8 [...] Glucose, Serum 203 mg/dL (Abnormal) Range: 65-99 3-Sbr-893234:50 Magnesium (90022) Comments: A courtesy copy of this report has been sent [phone].PATIENT WAS FASTINGPERFORMED BY: For Your ImaginationSaint Clare's Hospital at DoverOgpury4530 [facility] [id number] Magnesium, Serum 1.8 mg/dL (Normal) Range: 1.6-2.3 5-Sll-559171:53 CBC with auto diff (96580) Comments: A courtesy copy of this report has been sent [phone].PATIENT WAS FASTINGPERFORMED BY: [facility]6370 [facility] [id number] Immature Grans (Abs) 0.0 {x10E3/uL} (Normal) Range: [...] {x10E3/uL} (Normal) Range: 3.4-10.8 :53 LIPID PANEL (60557) Comments: A courtesy copy of this report has been sent [phone].PATIENT WAS FASTINGPERFORMED BY: LabHavenwyck Hospital6370 [facility] [id number] LDL/HDL Ratio 1.2 {ratio_units} (Normal) Range: 0.0-3.2 Comments: LDL/HDL Ratio Men Women 1/2 Avg.Risk 1.0 1.5 Av g.Risk 3.6 3.2 2X Avg.Risk 6.2 5.0 3X Avg.Risk 8.0 6.1 LDL Cholesterol Calc 90 mg/dL (Normal) Range: 0-99 VLDL Cholesterol Cesar 13 mg/dL (Normal) Range: 5-40 HDL Cholesterol 76 mg/dL (Normal) Triglycerides 67 mg/dL (Normal) Range: 0-149 Cholesterol, Total 179 mg/dL (Normal) Range: 100-199 1-Yey-522122:53 METABOLIC PANEL, COMPREHENSIVE Comments: A courtesy copy of this report has been sent [phone].PATIENT WAS FASTINGPERFORMED BY: For Your ImaginationGallup Indian Medical CenterFrtpsk0347 [facility] [id number] (28776) ALT (SGPT) 11 [iU]/L (Normal) Range: 0-32 [...] Glucose, Serum 205 mg/dL (Abnormal) Range: 65-99 25-Hwc-825407:57 HgA1C , Office (48798) HgA1C , Office 7.1 % (Normal) Range: 4.6 - 7.1 10-Nov-20169:09 LIPID PANEL (75292) Comments: PATIENT WAS FASTINGPERFORMED BY: For Your ImaginationGallup Indian Medical CenterRawmcf7340 [facility] [id number] LDL/HDL Ratio 1.3 {ratio_units} (Normal) Range: 0.0-3.2 [...] WAS FASTINGPERFORMED BY: LabCoSaint Clare's Hospital at DoverDpohpl1310 [facility] [id number] (29978) ALT (SGPT) 12 [iU]/L (Normal) Range: 0-32 [...] (Abnormal) Range: 65-99 :50 HgA1C , Office (57562) HgA1C , Office 6.7 % (Normal) Range: 4.6 - 7.1 :25 Magnesium, Serum 1.9 mg/dL (Normal) Comments: PATIENT WAS FASTINGPERFORMED BY: [facility] Qpwudp2908 [address] RoadDublin [place] [id number] Range: 1.6-2.3 :25 Microalb/Creat Ratio, Randm Ur Comments: PATIENT WAS FASTINGPERFORMED BY: LabFuelMyBlogrp Uxobwu3701 [address] RoadDublin [place] [id number] Microalb/Creat Ratio 2652.0 {mg/g_creat} Range: 0.0-30.0 (Abnormal) Microalbumin, Urine 2482.3 ug/mL (Normal) Comments: Results confirmed ondilution. Creatinine, Urine 93.6 mg/dL (Normal) PTH, Intact 26 pg/mL (Normal) Comments: PATIENT WAS FASTINGPERFORMED BY: LabFuelMyBlogrp Mljqiq0980 [address] RoadDublin [place] [id number] :25 Range: 15-65 :25 Renal Panel (10) Comments: PATIENT WAS FASTINGPERFORMED BY: [facility] Vczxrs5224 [address] RoadDublin [place] [id number] Phosphorus, Serum 4.3 mg/dL (Normal) Range: 2.5-4.5 :25 Thyroxine (T4) Free, Direct, S Comments: PATIENT WAS FASTINGPERFORMED BY: [facility] Ixpgey5603 [address] RoadDublin [place] [id number] T4,Free(Direct) 1.08 ng/dL (Normal) Range: 0.82-1.77 : TSH 2.980 {uIU/mL} Comments: PATIENT WAS FASTINGPERFORMED BY: [facility] Jiinbo6204 [address] RoadDublin [place] [id number] 25 (Normal) Range: 0.450-4.500 : Vitamin D, 25-Hydroxy 37.1 ng/mL (Normal) Comments: PATIENT WAS FASTINGPERFORMED BY: [employer] Fpwdvx6909 [facility] [id number] 25 Range: 30.0-100.0 Comments: Vitamin D deficiency has been defined by the Mutual ofMedicine and an Endocrine Society practice guideline as alevel of serum 25-OH vitamin D less than 20 ng/mL (1,2).The Endocrine Society went on to further define vitamin Dinsufficiency as a level between 21 and 29 ng/mL (2).1. IOM (Mutual of Medicine). 2010. Dietary reference intakes for calcium and D. [place]: The National Academies Press.2. Mira MF, Rosette LOPEZ, Tommy SWAIN, et al. Evaluation, treatment, and prevention of vitamin D deficiency: an Endocrine Society clinical practice guideline. JCEM. 2010; 96(7):1911-30. -:25 CBC W/AUTO DIFF WBC (37435) Comments: PATIENT WAS FASTINGPERFORMED BY: [facility] Gsbhrb6593 [facility] [id number] Immature Grans (Abs) 0.0 {x10E3/uL} (Normal) Range: [...] COMPREHENSIVE Comments: PATIENT WAS FASTINGPERFORMED BY: LabCo Ctjozr1717 [facility] [id number]; non- emergent till apt (11803) ALT (SGPT) 10 [iU]/L (Normal) Range: 0-32 [...] mg/dL (Abnormal) Range: 65-99 :25 LIPID PANEL (32348) Comments: PATIENT WAS FASTINGPERFORMED BY: bitmovinHavenwyck Hospital6370 [facility] [id number] LDL/HDL Ratio 0.9 {ratio_units} (Normal) Range: 0.0-3.2 Comments: LDL/HDL Ratio Men Women 1/2 Avg.Risk 1.0 1.5 Av g.Risk 3.6 3.2 2X Avg.Risk 6.2 5.0 3X Avg.Risk 8.0 6.1 LDL Cholesterol Calc 65 mg/dL (Normal) Range: 0-99 VLDL Cholesterol Cesar 19 mg/dL (Normal) Range: 5-40 HDL Cholesterol 75 mg/dL (Normal) Triglycerides 93 mg/dL (Normal) Range: 0-149 Cholesterol, Total 159 mg/dL (Normal) Range: 100-199 77-Cyk-209884:54 HgA1C , Office (73160) HgA1C , Office 6.6 % (Normal) Range: 4.6 - 7.1 25-Wta-591859:1 Magnesium, Serum 2.1 mg/dL (Normal) Comments: PATIENT WAS FASTINGPERFORMED BY: bitmovinHavenwyck Hospital6370 [facility] [id number] 2 Range: 1.6-2.3 91-Zbh-711528:12 Microalb/Creat Ratio, Randm Ur Comments: PATIENT WAS FASTINGPERFORMED BY: bitmovinHavenwyck Hospital6370 [facility] [id number] Microalb/Creat Ratio 1863.4 {mg/g_creat} (Abnormal) Range: 0.0-30.0 Microalbumin, Urine 1416.2 ug/mL (Normal) Comments: Results confirmed ondilution. Creatinine, Urine 76.0 mg/dL (Normal) 19-Hum-903069:12 Microscopic Examination Comments: PATIENT WAS FASTINGPERFORMED BY: bitmovinHavenwyck Hospital6370 [facility] [id number] Bacteria None seen (Normal) Mucus Threads Present (Normal) Cast Type Hyaline casts (Normal) Casts Present {/lpf} (Abnormal) Epithelial Cells (non 0-10 {/hpf} Range: 0 - 10 renal) (Normal) RBC 3-10 {/hpf} Range: 0 - 2 (Abnormal) WBC 6-10 {/hpf} Range: 0 - 5 (Abnormal) PTH, Intact 36 pg/mL (Normal) Comments: PATIENT WAS FASTINGPERFORMED BY: [employer] Wwqtiv3752 [facility] [id number] 0:12 Range: 15-65 Vitamin D, 25-Hydroxy 42.9 ng/mL (Normal) Comments: PATIENT WAS FASTINGPERFORMED BY: [employer] Lzvwlx2340 [facility] [id number] 0:12 Range: 30.0-100.0 Comments: Vitamin D deficiency has been defined by the Mutual ofMedicine and an Endocrine Society practice guideline as alevel of serum 25-OH vitamin D less than 20 ng/mL (1,2).The Endocrine Society went on to further define vitamin Dinsufficiency as a level between 21 and 29 ng/mL (2).1. IOM (Mutual of Medicine). 2010. Dietary reference intakes for calcium and D. [place]: The National Academies Press.2. Mira MF, Rosette NC, Tommy SWAIN, et al. Evaluation, treatment, and prevention of vitamin D deficiency: an Endocrine Society clinical practice guideline. JCEM. 2010; 96(7):1911-30. 22-Zrc-307101:12 URINALYSIS, W/ MICRO (33996) Comments: PATIENT WAS FASTINGPERFORMED BY: [employer] Qishga3661 [facility] [id number] Microscopic Examination See below: (Normal) Comments: Microscopic was indicated and was performed. Nitrite, Urine Negative (Normal) Urobilinogen,Semi-Qn 0.2 mg/dL (Normal) Range: 0.2-1.0 Bilirubin Negative (Normal) Occult Blood Negative (Normal) Ketones Negative (Normal) Glucose Negative (Normal) Protein 4+ (Abnormal) WBC Esterase Trace (Abnormal) Appearance Clear (Normal) Urine-Color Yellow (Normal) pH 6.0 (Normal) Range: 5.0-7.5 Specific [place] 1.015 (Normal) Range: 1.005-1.030 90-Ipw-112524:12 CBC W/AUTO DIFF WBC (07155) Comments: PATIENT WAS FASTINGPERFORMED BY: [employer] [address] [facility] [id number] Immature Grans (Abs) 0.0 {x10E3/uL} (Normal) Range: [...] 3.77-5.28 WBC 6.2 {x10E3/uL} (Normal) Range: 3.4-10.8 92-Wkm-940473:12 METABOLIC PANEL, COMPREHENSIVE Comments: PATIENT WAS FASTINGPERFORMED BY: For Your ImaginationSaint Clare's Hospital at DoverIdlhfd6775 [facility] [id number] (78115) ALT (SGPT) 14 [iU]/L (Normal) Range: 0-32 [...] Glucose, Serum 154 mg/dL (Abnormal) Range: 65-99 02-Vok-738054:12 LIPID PANEL (92025) Comments: PATIENT WAS FASTINGPERFORMED BY: LabHavenwyck Hospital6370 [facility] [id number] LDL/HDL Ratio 0.7 {ratio_units} (Normal) Range: 0.0-3.2 Comments: LDL/HDL Ratio Men Women 1/2 Avg.Risk 1.0 1.5 Av g.Risk 3.6 3.2 2X Avg.Risk 6.2 5.0 3X Avg.Risk 8.0 6.1 LDL Cholesterol Calc 49 mg/dL (Normal) Range: 0-99 VLDL Cholesterol Cesar 14 mg/dL (Normal) Range: 5-40 HDL Cholesterol 75 mg/dL (Normal) Triglycerides 68 mg/dL (Normal) Range: 0-149 Cholesterol, Total 138 mg/dL (Normal) Range: 100-199 91-Epj-228883:50 HgA1C , Office (81669) HgA1C , Office 6.7 % (Normal) Range: 4.6 - 7.1 79-Mnj-484946:36 VITAMIN B-12 (CYANOCOBALAMIN) Comments: PATIENT WAS FASTINGPERFORMED BY: [facility]6370 [facility] [id number] (16780) Vitamin B12 802 pg/mL (Normal) Range: 211-946 21-Sos-763700:36 LIPID PANEL (16754) Comments: PATIENT WAS FASTINGPERFORMED BY: [facility] [place] [address] [id number] LDL/HDL Ratio 0.8 {ratio_units} (Normal) Range: 0.0-3.2 [...] Cholesterol, Total 161 mg/dL (Normal) Range: 100-199 18-Jip-012315:36 LDH (LD) (LACTATE DEHYDROGENASE) Comments: PATIENT WAS FASTINGPERFORMED BY: [facility]6370 [facility] [id number] (66779) LDH 217 [iU]/L (Normal) Range: 119-226 73-Ocm-732713:36 CBC W/AUTO DIFF WBC (90785) Comments: PATIENT WAS FASTINGPERFORMED BY: [facility]6370 [facility] [id number] Immature Grans (Abs) 0.0 {x10E3/uL} (Normal) Range: [...] 3.77-5.28 WBC 10.6 {x10E3/uL} (Normal) Range: 3.4-10.8 37-Zak-786981:36 METABOLIC PANEL, COMPREHENSIVE Comments: PATIENT WAS FASTINGPERFORMED BY: [facility]Co Hablgs9329 [facility] [id number] (46655) ALT (SGPT) 15 [iU]/L (Normal) Range: 0-32 [...] Glucose, Serum 137 mg/dL (Abnormal) Range: 65-99 93-Xca-221667:36 TSH (92961) Comments: PATIENT WAS FASTINGPERFORMED BY: Platypi Zcjkww5215 [facility] [id number] TSH 0.560 {uIU/mL} (Normal) Range: 0.450-4.500 85-Fkx-11648:02 Renal function Panel (76634) Comments: PATIENT WAS FASTINGPERFORMED BY: [facility] Vjdacy4969 [facility] [id number] Albumin, Serum 3.7 g/dL (Normal) Range: 3.5-4.8 [...] 137 mg/dL (Abnormal) Range: 65-99 :02 MAGNESIUM (46218) Comments: PATIENT WAS FASTINGPERFORMED BY: [facility]Community [facility] [id number] Magnesium, Serum 2.2 mg/dL (Normal) Range: 1.6-2.3 :02 MICROALBUMIN: CREATININE RATIO Comments: PATIENT WAS FASTINGPERFORMED BY: [employer]70 [employer] [facility] HospitalMatchbookCommunity Health [id number] (41295) AND (26643) Microalb/Creat Ratio 2038.7 {mg/g_creat} (Abnormal) Range: 0.0-30.0 Microalbumin, Urine 1223.2 ug/mL (Normal) Comments: Results confirmed ondilution. Creatinine, Urine 60.0 mg/dL (Normal) :02 CBC WITH MANUAL DIFF Comments: PATIENT WAS FASTINGPERFORMED BY: [employer]6[address] [facility] HospitalMatchbookCommunity Health [id number] Information: [id number] (99027) Immature Grans (Abs) 0.0 {x10E3/uL} (Normal) Range: [...] {x10E3/uL} (Normal) Range: 3.4-10.8 :02 HGB A1C (45200) Comments: PATIENT WAS FASTINGPERFORMED BY: FathomDBlin6370 [facility] [id number] Hemoglobin A1c 6.4 % (Abnormal) Range: 4.8-5.6 Comments: . Pre-diabetes: 5.7 - 6.4 Diabetes: >6.4 Glycemic control for adults with diabetes: <7.0 :02 Lipid Panel (23518) Comments: PATIENT WAS FASTINGPERFORMED BY: [employer]70 [facility] [id number] LDL/HDL Ratio 1.1 {ratio_units} (Normal) Range: 0.0-3.2 [...] Cholesterol, Total 160 mg/dL (Normal) Range: 100-199 50-Gfh-918843:03 HgA1C , Office (34927) HgA1C , Office 6.1 % (Normal) Range: 4.6 - 7.1 :24 CBC W/AUTO DIFF WBC Comments: PATIENT WAS FASTINGPERFORMED BY: LabCoSaint Clare's Hospital at DoverSqorpl4841 [facility] [id number] Information: [id number] (87643) Immature Grans (Abs) 0.0 {x10E3/uL} (Normal) Range: [...] CREATININE RATIO Comments: PATIENT WAS FASTINGPERFORMED BY: [employer] Dqmexm2781 [facility] [id number] (38934) AND (10408) Microalb/Creat Ratio 1223.8 {mg/g_creat} (Abnormal) Range: 0.0-30.0 Microalbumin, Urine 1012.1 ug/mL (Abnormal) Range: 0.0-17.0 Comments: Results confirmed ondilution. Creatinine, Urine 82.7 mg/dL (Normal) Range: 15.0-278.0 :24 METABOLIC PANEL, COMPREHENSIVE Comments: PATIENT WAS FASTINGPERFORMED BY: Platypi Weojlw8423 [facility] [id number] (03285) ALT (SGPT) 12 [iU]/L (Normal) Range: 0-32 [...] mg/dL (Abnormal) Range: 65-99 :24 LIPID PANEL (78351) Comments: PATIENT WAS FASTINGPERFORMED BY: [facility] Slysbg5568 [facility] [id number] LDL/HDL Ratio 1.1 {ratio_units} (Normal) Range: 0.0-3.2 [...] Range: 100-199 :30 CBC W/Diff, Automated Comments: [place] [address]vpns[address] [place], [place], [id number] Absolute Lymph 0.83 {X10_3/ul} (Normal) Range: 0.83-4.51 [...] (Normal) Range: 4.4-11.0 :30 Hemoglobin A1c Comments: [address] [place], [place], [id number](412) HGB A1C 6.1 % (Normal) Range: 4.2-6.3 :30 Magnesium Comments: [address] [place], [place], [address](192) MG 1.8 mg/dL (Normal) Range: 1.8-2.4 :30 Protein+Creatinine Ratio,Urine Comments: [address] [place], [place], [address](616) PROT:CRE RATIO 2121 {mg/g_CRE} (Abnormal) Range: 0-200 PROTEIN,UR.RAN. 164.2 mg/dL (Abnormal) UR CREAT 77.40 mg/dL (Normal) :30 Renal Profile Comments: [place] [address] [place], [place], [address](299) CO2 27.0 mmol/L (Normal) Range: 21.0-32.0 CL [...] 126 mg/dLsuggests DIABETES MELLITUS per A.D.A. criteria. 80-Uvi-67682:00 24 HR UR Creatinine Clearance Comments: [place] Geuvnqvawx7614 [facility]. [place], [place], [id number] CREAT CLEARANCE 24 ml/min (Abnormal) Range: 100-200 URINE CREAT 20.6 mg/dL (Normal) EST GFR - AA 38 mL/min (Abnormal) Comments: GFR Calc EST GFR 31 mL/min (Abnormal) Comments: Non- GFR Calc SERUM CREAT 1.7 mg/dL (Abnormal) Range: 0.6-1.0 UR TOTAL VOLUME 2800 mL (Normal) UR COLLECT TIME 24.0 {HOURS} (Normal) 15-Bhl-40408:00 Protein, Urine 24HR Comments: [place] Yktnhdzwna0002 [facility] [place], [address] 24hr UR PROTEIN 1178.8 {mg/24HR} (Abnormal) URINE PROTEIN 42.1 mg/dL (Abnormal) UR TOTAL VOLUME 2800 mL (Normal) UR COLLECT TIME 24.0 {HOURS} (Normal) 3-Fmm-853645:29 Metabolic Panel, Basic Comments: PATIENT NOT FASTINGPERFORMED BY: LabCoSaint Clare's Hospital at DoverNnfitr7417 [facility] [id number] Information: [id number] (57747) Calcium, Serum 9.3 mg/dL (Normal) Range: 8.7-10.3 [...] Basic Comments: tuesday; PATIENT NOT FASTINGPERFORMED BY: LabCoSaint Clare's Hospital at DoverStfnan3788 [facility] [id number] Information: [id number] (90162) Calcium, Serum 9.0 mg/dL (Normal) Range: 8.7-10.3 [...] Glucose, Serum 149 mg/dL (Abnormal) Range: 65-99 17-Qzc-221081:32 HgA1C , Office (19843) HgA1C , Office 6.2 % (Normal) Range: 4.6 - 7.1 :31 Rapid Strep Test, Office (96313) Comments: neg Rapid Strep Test, Office Negative (Normal) :06 THROAT CULTURE (67051) Comments: PATIENT NOT FASTINGPERFORMED BY: CB [facility] Jjlqtv1716 [address] RoadDublin [place] [id number] Information: [id number] Result 1 RRF (Normal) Comments: Routine respiratory luis Upper Respiratory Culture Final report (Normal) :52 TSH (70457) Comments: PATIENT WAS FASTINGPERFORMED BY: CB [facility] Ybwuwk6690 [address] RoadDublin [place] [id number] TSH 2.190 {uIU/mL} (Normal) Range: 0.450-4.500 :52 Vitamin D Hydroxy (18347) Comments: PATIENT WAS FASTINGPERFORMED BY: CB [facility] Kalcwp7707 [address] RoadDublin [place] [id number] Vitamin D, 25-Hydroxy 43.8 ng/mL (Normal) Range: 30.0-100.0 Comments: Vitamin D deficiency has been defined by the Mutual ofMedicine and an Endocrine Society practice guideline as alevel of serum 25-OH vitamin D less than 20 ng/mL (1,2).The Endocrine Society went on to further define vitamin Dinsufficiency as a level between 21 and 29 ng/mL (2).1. IOM (Mutual of Medicine). 2010. Dietary reference intakes for calcium and D. [place]: The National Academies Press.2. Mira MF, Rosette NC, Tommy SWAIN, et al. Evaluation, treatment, and prevention of vitamin D deficiency: an Endocrine Society clinical practice guideline. JCEM. 2010; 96(7):1911-30. :52 LIPID PANEL (92246) Comments: PATIENT WAS FASTINGPERFORMED BY: CB [facility] Oqhzjz6151 [address] RoadDublin [place] [id number] LDL/HDL Ratio 1.3 {ratio_units} (Normal) Range: 0.0-3.2 [...] auto diff Comments: PATIENT WAS FASTINGPERFORMED BY: LabCoSaint Clare's Hospital at DoverNgjixp3374 [facility] [id number] Information: [id number] (72976) Immature Grans (Abs) 0.0 {x10E3/uL} (Normal) Range: [...] COMPREHENSIVE Comments: PATIENT WAS FASTINGPERFORMED BY: LabCo Echgst6887 [facility] [id number] (97630) ALT (SGPT) 19 [iU]/L (Normal) Range: 0-32 [...] (Abnormal) Range: 65-99 :08 HgA1C , Office (17317) HgA1C , Office 6.4 % (Normal) Range: 4.6 - 7.1 [id number] Creatinine Clearance Comments: PATIENT NOT FASTINGPERFORMED BY: [facility] [id number] Information: [id number] S TART Creatinine Clearance 33 mL/min (Abnormal) Range: 88-128 Comments: The above range is based on 1.73 square meter average body surfacearea. Creatinine, Ur 24hr 642.0 {mg/24_hr} (Abnormal) Range: 800.0-1800.0 Creatinine, Urine 34.7 mg/dL (Normal) Range: 15.0-278.0 eGFR If Africn Am 43 mL/min/1.73 (Abnormal) eGFR If NonAfricn Am 37 mL/min/1.73 (Abnormal) Creatinine, Serum 1.37 mg/dL (Abnormal) Range: 0.57-1.00 [id number] Protein Total, Qn, 24-Hr Comments: PATIENT NOT FASTINGPERFORMED BY: [facility] [facility] [id number] Urine Prot,24hr calculated 1309.8 {mg/24_hr} (Abnormal) Range: 30.0-150.0 Protein,Total,Urine 70.8 mg/dL (Abnormal) Range: 0.0-15.0 :01 CBC W/Diff, Automated Comments: Test performed at:[facility] [address] [place] [address] Absolute Neut 3.1 {X10_3/uL} (Normal) [...] Range: 4.4-11.0 :01 Magnesium Comments: Test performed at:[facility] [address] [place] [address]704 MG 2.0 mg/dL (Normal) Range: 1.8-2.4 :01 Protein+Creatinine Ratio,Urine Comments: Test performed at:[facility] [address] [place] [address]73 PROT:CRE RATIO 2232 {mg/g_CRE} (Abnormal) Range: 0-200 PROTEIN,UR.RAN. 160.3 mg/dL (Abnormal) UR CREAT 71.8 mg/dL (Normal) :01 Renal Profile Comments: Test performed at:[facility] [address] [place] [address] 46250 CO2 32.0 mmol/L (Normal) Range: 21.0-32.0 CL [...] mg/dL (Normal) Range: 70-110 :08 LIPID PANEL (74333) Comments: PATIENT WAS FASTINGPERFORMED BY: For Your ImaginationSaint Clare's Hospital at DoverWtjiuc6044 [facility] [id number] LDL/HDL Ratio 1.0 {ratio_units} (Normal) Range: 0.0-3.2 [...] METABOLIC PANEL, Comments: PATIENT WAS FASTINGPERFORMED BY: For Your ImaginationSaint Clare's Hospital at DoverDtfhsy0649 [facility] [id number] Information: [id number] COMPREHENSIVE (35400) ALT (SGPT) 29 [iU]/L (Normal) Range: 0-32 [...] (Abnormal) Range: 65-99 :59 HgA1C , Office (86568) HgA1C , Office 6.5 % (Normal) Range: 4.6 - 7.1 :54 CBC W/AUTO DIFF WBC Comments: PATIENT WAS FASTINGPERFORMED BY: LabCoSaint Clare's Hospital at DoverUiofzu9611 [facility] [id number] Information: [id number] (74235) Immature Grans (Abs) 0.0 {x10E3/uL} (Normal) Range: [...] COMPREHENSIVE Comments: PATIENT WAS FASTINGPERFORMED BY: [facility] Fpglcv5089 [facility] [id number]; non- emergent till apt (32524) ALT (SGPT) 13 [iU]/L (Normal) Range: 0-32 [...] mg/dL (Abnormal) Range: 65-99 :54 LIPID PANEL (04465) Comments: PATIENT WAS FASTINGPERFORMED BY: LabCoSaint Clare's Hospital at DoverNxjofe0101 [facility] [id number] LDL/HDL Ratio 1.1 {ratio_units} (Normal) Range: 0.0-3.2 [...] (Normal) Range: 100-199 :29 HgA1C , Office (73253) HgA1C , Office 6.6 % (Normal) Range: 4.6 - 7.1 :12 CBC W/Diff, Automated Comments: Test performed at:[facility] [address] [place] [address] ; handled by Dr. Santana [...] Range: 4.4-11.0 :12 Magnesium Comments: Test performed at:[facility] [address] [place] [address]250 MG 2.0 mg/dL (Normal) Range: 1.8-2.4 :12 Microalb:Creat Ratio,Random UR Comments: Test performed at:[facility] [address] [place] [address] ; Dr. Angelo LING:CREAT 1483.0 {mg/g_CRE} (Abnormal) MICROALBUMIN,UR 918.0 mg/L (Normal) UR CREAT 61.9 mg/dL (Normal) :12 Renal Profile Comments: Test performed at:[facility] [address] [place] [address] 86516 CO2 29.0 mmol/L (Normal) Range: 21.0-32.0 CL [...] 126 mg/dLsuggests DIABETES MELLITUS per A.D.A. criteria. 07-Ygm-439054:20 LIPID PANEL (09351) Comments: PATIENT WAS FASTINGPERFORMED BY: For Your ImaginationSaint Clare's Hospital at DoverRkkufh1398 [facility] [id number] LDL/HDL Ratio 1.0 {ratio_units} (Normal) Range: 0.0-3.2 [...] Cholesterol, Total 151 mg/dL (Normal) Range: 100-199 61-Mzi-063027:20 METABOLIC PANEL, Comments: PATIENT WAS FASTINGPERFORMED BY: For Your ImaginationSaint Clare's Hospital at DoverKiuelg7678 [facility] [id number] Information: [id number] COMPREHENSIVE (98989) ALT (SGPT) 16 [iU]/L (Normal) Range: 0-32 [...] Glucose, Serum 148 mg/dL (Abnormal) Range: 65-99 25-Yrw-783906:21 CREATININE CLEARANCE Comments: PATIENT WAS FASTINGPERFORMED BY: [facility]6370 [facility] [id number] Information: [id number] START 04/02/14@9AM FINISH 04/03/14 6:00 AM (76716) Creatinine Clearance 42 mL/min (Abnormal) Range: 88-128 Comments: The above range is based on 1.73 square meter average body surfacearea. Creatinine, Ur 24hr 812.3 {mg/24_hr} (Normal) Range: 800.0-1800.0 Creatinine, Urine 28.5 mg/dL (Normal) Range: 15.0-278.0 eGFR If Africn Am 45 mL/min/1.73 (Abnormal) eGFR If NonAfricn Am 39 mL/min/1.73 (Abnormal) Creatinine, Serum 1.33 mg/dL (Abnormal) Range: 0.57-1.00 66-Ger-490754:21 Total Protein,24 Hour Urine Comments: PATIENT WAS FASTINGPERFORMED BY: bitmovinHavenwyck Hospital6370 [facility] [id number] (36644) Prot,24hr calculated 1559.0 {mg/24_hr} (Abnormal) Range: 30.0-150.0 Protein,Total,Urine 54.7 mg/dL (Abnormal) Range: 0.0-15.0 :57 LIPID PANEL (46440) Comments: PATIENT WAS FASTINGPERFORMED BY: bitmovinHavenwyck Hospital6370 [facility] [id number] LDL/HDL Ratio 1.1 {ratio_units} (Normal) Range: 0.0-3.2 [...] DIFF Comments: PATIENT WAS FASTINGPERFORMED BY: [facility]6370 [facility] [id number] Information: [id number] (29931) Immature Grans (Abs) 0.0 {x10E3/uL} (Normal) Range: [...] WAS FASTINGPERFORMED BY: LabCoSaint Clare's Hospital at DoverEyjenw2401 [facility] [id number] (21091) ALT (SGPT) 10 [iU]/L (Normal) Range: 0-32 [...] 0 Comments: Result Units: mg/dL AdultPerformed at: [facility] [address] [id number] Director: Yousuf Bernardo PhD, Phone: [phone] C4 [phone] (Abnormal) Range: 9-36 0 [...] 75.6 mg/dL (Abnormal) CREU 49.3 mg/dL (Normal) 30-Swn-10733:21 CBC WITH MANUAL DIFF Comments: PATIENT WAS FASTINGPERFORMED BY: LabCoSaint Clare's Hospital at DoverJzldyy5974 [facility] [id number] Information: [id number] (45305) Immature Grans (Abs) 0.0 {x10E3/uL} (Normal) Range: [...] 3.77-5.28 WBC 4.5 {x10E3/uL} (Normal) Range: 3.4-10.8 64-Gmt-66768:21 METABOLIC PANEL, COMPREHENSIVE Comments: PATIENT WAS FASTINGPERFORMED BY: LabCoSaint Clare's Hospital at DoverIwufdo2005 [facility] [id number] (33749) ALT (SGPT) 16 [iU]/L (Normal) Range: 0-32 [...] Glucose, Serum 132 mg/dL (Abnormal) Range: 65-99 61-Vtu-379212:53 CREATININE CLEARANCE Comments: PATIENT NOT FASTINGPERFORMED BY: LabCoSaint Clare's Hospital at DoverDnwuyl8785 [facility] [id number] Information: [id number] START 10/30/13@8AM F INISH 10/31/13@8AM 2650ML (81357) Creatinine Clearance 44 mL/min (Abnormal) Range: 88-128 Comments: The above range is based on 1.73 square meter average body surfacearea. Creatinine, Ur 24hr 877.2 {mg/24_hr} (Normal) Range: 800.0-1800.0 Creatinine, Urine 33.1 mg/dL (Normal) Range: 15.0-278.0 eGFR If Africn Am 44 mL/min/1.73 (Abnormal) eGFR If NonAfricn Am 38 mL/min/1.73 (Abnormal) Creatinine, Serum 1.37 mg/dL (Abnormal) Range: 0.57-1.00 13-Nlt-239509:53 Total Protein,24 Hour Urine Comments: PATIENT NOT FASTINGPERFORMED BY: [employer]70 [facility] [id number] (51816) Prot,24hr calculated 3458.3 {mg/24_hr} (Abnormal) Range: 30.0-150.0 Protein,Total,Urine 130.5 mg/dL (Abnormal) Range: 0.0-15.0 60-Kes-151000:31 HgA1C , Office (54379) HgA1C , Office 6.4 % (Normal) Range: 4.6 - 7.1 69-Zis-280290:27 Microscopic Examination Comments: PATIENT WAS FASTINGPERFORMED BY: [employer] [facility] [id number] Bacteria Few (Normal) Mucus Threads Present (Normal) Epithelial Cells (non renal) 0-10 {/hpf} (Normal) Range: 0 - 10 RBC 3-10 {/hpf} (Abnormal) Range: 0 - 2 WBC 6-10 {/hpf} (Abnormal) Range: 0 - 5 :32 LIPID PANEL (23812) Comments: PATIENT WAS FASTINGPERFORMED BY: [employer]70 [facility] [id number] LDL/HDL Ratio 1.0 {ratio_units} (Normal) Range: 0.0-3.2 [...] CREATININE RATIO Comments: PATIENT WAS FASTINGPERFORMED BY: [employer] [facility] [id number] (27516) AND (39058) Microalb/Creat Ratio 1998.9 {mg/g_creat} (Abnormal) Range: 0.0-30.0 Creatinine, Urine 73.4 mg/dL (Normal) Range: 15.0-278.0 Microalbumin, Urine 1467.2 ug/mL (Abnormal) Range: 0.0-17.0 :32 URINALYSIS, W/ MICRO (71034) Comments: PATIENT WAS FASTINGPERFORMED BY: For Your ImaginationSaint Clare's Hospital at DoverNqeojs1310 [facility] [id number] Microscopic Examination See below: (Normal) Comments: Microscopic was indicated and was performed. Nitrite, Urine Negative (Normal) Urobilinogen,Semi-Qn 0.2 mg/dL (Normal) Range: 0.0-1.9 Bilirubin Negative (Normal) Occult Blood Trace (Abnormal) Ketones Negative (Normal) Glucose Negative (Normal) Protein 3+ (Abnormal) WBC Esterase Trace (Abnormal) Appearance Clear (Normal) Urine-Color Yellow (Normal) pH 6.5 (Normal) Range: 5.0-7.5 Specific Surrency 1.015 (Normal) Range: 1.005-1.030 :32 CBC WITH MANUAL DIFF Comments: PATIENT WAS FASTINGPERFORMED BY: bitmovinHavenwyck Hospital6370 [facility] [id number] Information: [id number] (79753) Immature Grans (Abs) 0.0 {x10E3/uL} (Normal) Range: [...] 3.77-5.28 WBC 3.7 {x10E3/uL} (Normal) Range: 3.4-10.8 53-Dmv-16035:32 METABOLIC PANEL, COMPREHENSIVE Comments: PATIENT WAS FASTINGPERFORMED BY: LabCoSaint Clare's Hospital at DoverIhlvto9762 [facility] [id number] (47456) ALT (SGPT) 16 [iU]/L (Normal) Range: 0-32 [...] B-12 (CYANOCOBALAMIN) Comments: PATIENT WAS FASTINGPERFORMED BY: Syscon Justice SystemsSaint Clare's Hospital at DoverFmeixf7267 [facility] [id number] (04379) Vitamin B12 >1999 pg/mL (Abnormal) Range: 211-946 81-Nae-588694:01 HgA1C , Office (14131) HgA1C , Office 6.4 % (Normal) Range: 4.6 - 7.1 :37 METABOLIC PANEL, COMPREHENSIVE Comments: PATIENT WAS FASTINGPERFORMED BY: [employer] Sntlwr0436 [facility] [id number] (33021) ALT (SGPT) 12 [iU]/L (Normal) Range: 0-32 [...] (Abnormal) Range: 65-99 :37 Vitamin D Hydroxy (00587) Comments: PATIENT WAS FASTINGPERFORMED BY: [employer]6370 [facility] [id number] Vitamin D, 25-Hydroxy 47.4 ng/mL (Normal) Range: 30.0-100.0 Comments: Vitamin D deficiency has been defined by the Mutual ofMagruder Memorial Hospitalcine and an Endocrine Society practice guideline as alevel of serum 25-OH vitamin D less than 20 ng/mL (1,2).The Endocrine Society went on to further define vitamin Dinsufficiency as a level between 21 and 29 ng/mL (2).1. IOM (Mutual of Medicine). 2010. Dietary reference intakes for calcium and D. [place]: The National Academies Press.2. Mira MF, Rosette [place], Tommy SWAIN, et al. Evaluation, treatment, and prevention of vitamin D deficiency: an Endocrine Society clinical practice guideline. JCEM. 2010; 96(7):1911-30. :37 LIPID PANEL (68962) Comments: PATIENT WAS FASTINGPERFORMED BY: [employer]FuelMyBlog Apjcmz1668 [facility] [id number] LDL/HDL Ratio 1.2 {ratio_units} (Normal) Range: 0.0-3.2 [...] DIFF Comments: PATIENT WAS FASTINGPERFORMED BY: EVE For Your ImaginationSaint Clare's Hospital at DoverEwdknl6097 [facility] [id number] Information: [id number] (24764) Immature Grans (Abs) 0.0 {x10E3/uL} (Normal) Range: [...] Qn, 24-Hr Comments: PATIENT NOT FASTINGPERFORMED BY: [employer] Praqie5456 [facility] [id number] Information: ADD [id number] AND DRAW FEE 99 6660 VOLUME 2600 164LBS 5' '3 Urine Prot,24hr calculated 920.4 {mg/24_hr} Range: 30.0-150.0 (Abnormal) Protein,Total,Urine 35.4 mg/dL Range: 0.0-15.0 (Abnormal) : Written Authorization WAR (Normal) Comments: PATIENT NOT FASTINGPERFORMED BY: LabCoSaint Clare's Hospital at DoverWuebzy5413 [facility] [id number] Comments: Written Authorization Received.Authorization received from Chiqui BRICEÑO LPN [id number] by Marleen Sharma :52 Metabolic Panel, Basic Comments: PATIENT NOT FASTINGPERFORMED BY: bitmovinMoberly Regional Medical Center Fqdkkh1934 [facility] [id number] Information: ADD [id number] AND DRAW FEE 99 6660 VOLUME 2600 164LBS 5' '3 (76899) Calcium, Serum 9.7 mg/dL (Normal) Range: 8.6-10.2 [...] mg/dL (Abnormal) Range: 65-99 :52 CREATININE CLEARANCE (83970) Comments: PATIENT NOT FASTINGPERFORMED BY: bitmovinHavenwyck Hospital6370 [facility] [id number] Creatinine Clearance 46 mL/min (Abnormal) Range: 88-128 Comments: The above range is based on 1.73 square meter average body surfacearea. Creatinine, Ur 24hr 899.6 {mg/24_hr} (Normal) Range: 800.0-1800.0 Creatinine, Urine 34.6 mg/dL (Normal) Range: 15.0-278.0 :52 24 hour urine for Protein Comments: PATIENT NOT FASTINGPERFORMED BY: bitmovinHavenwyck Hospital6370 [facility] [id number] (41719) Microalb/Creat Ratio 695.4 {mg/g_creat} (Abnormal) Range: 0.0-30.0 Microalbumin, Urine 240.6 ug/mL (Abnormal) Range: 0.0-17.0 :13 HgA1C , Office (18018) HgA1C , Office 6.3 % (Normal) Range: 4.6 - 7.1 :01 Blood Glucose , Office (65519) Blood Glucose , Office 162 (Normal) 01-Twn-249454:02 Microscopic Examination Comments: PATIENT NOT FASTINGPERFORMED BY: LabHavenwyck Hospital6370 [facility] [id number] Bacteria Few (Normal) Mucus Threads Present (Normal) [...] Hebert M.D.October 19, 2012 at 2:42:14 PM [id number] Signed GP/GP If you are the referring physician and would like to consult [facility] theradiologist who provided this interpretation, please contact Yasmany Pond at [phone]. If this radiologist is unavailable, youwill be directed to another radiologist to assist. If y ou are a patient with a question regarding this report, pleasecontactyour referring physician directly. Professional Interpretation Provided By: [employer], Phone , These documents contain legally protected [...] 10/19/12 1444 Sign by: Misael Hebert MD 58-Akm-321717:59 TSH (17707) Comments: PATIENT WAS FASTINGPERFORMED BY: [employer] NetworkCommunity Health [id number] TSH 1.230 {uIU/mL} (Normal) Range: 0.450-4.500 45-Yma-217206:59 LIPID PANEL (38880) Comments: PATIENT WAS FASTINGPERFORMED BY: [employer]70 [employer]oyi MediaReplaced by [facility] [id number] LDL/HDL Ratio 0.5 {ratio_units} (Normal) Range: 0.0-3.2 LDL Cholesterol Calc 47 mg/dL (Normal) Range: 0-99 Cholesterol, Total 149 mg/dL (Normal) Range: 100-199 HDL Cholesterol 91 mg/dL (Normal) Comments: According to ATP-III Guidelines, HDL-C >59 mg/dL is considered anegative risk factor for CHD. Triglycerides 57 mg/dL (Normal) Range: 0-149 VLDL Cholesterol Cesar 11 mg/dL (Normal) Range: 5-40 40-Yyy-700658:02 URINALYSIS, W/ MICRO Comments: PATIENT NOT FASTINGPERFORMED BY: [employer]70 [employer] [facility] [id number] Information: [id number] (41605) Microscopic Examination See below: (Normal) Nitrite, Urine Negative (Normal) Bilirubin Negative (Normal) Urobilinogen,Semi-Qn 0.2 mg/dL (Normal) Range: 0.0-1.9 Occult Blood Negative (Normal) Ketones Negative (Normal) Glucose Negative (Normal) Protein 3+ (Abnormal) WBC Esterase Negative (Normal) Appearance Clear (Normal) Urine-Color Yellow (Normal) pH 5.5 (Normal) Range: 5.0-7.5 Specific Surrency 1.015 (Normal) Range: 1.005-1.030 21-Naf-782027:59 CBC WITH MANUAL DIFF Comments: PATIENT WAS FASTINGPERFORMED BY: LabCoSaint Clare's Hospital at DoverLoxron0032 [facility] [id number] Information: [id number] (73481) Immature Grans (Abs) 0.0 {x10E3/uL} (Normal) Range: [...] 3.77-5.28 WBC 4.8 {x10E3/uL} (Normal) Range: 3.4-10.8 48-Fak-539404:59 METABOLIC PANEL, COMPREHENSIVE Comments: PATIENT WAS FASTINGPERFORMED BY: LabCoSaint Clare's Hospital at DoverIsrjww5372 [facility] [id number] (85942) ALT (SGPT) 14 [iU]/L (Normal) Range: 0-32 [...] Glucose, Serum 104 mg/dL (Abnormal) Range: 65-99 3-Ick-961020:37 HgA1C , Office (58311) HgA1C , Office 6.0 % (Normal) Range: 4.6 - 7.1 9-Jtz-117027:31 CRE CREAT 1.3 mg/dL (Abnormal) Range: 0.6-1.0 [...] ischemic changes in thecerebral white matter. Signed:Donna Gaaln M.D.August 09, 2012 at 2:38:03 PM [id number] Signed PV/PV If you are the referring physician and would like to consult with theradiologist who provided this interpretation, please contact Donna Burnett M.D. at [phone]. If this radiologist is unavailable, youwillbe directed to another radiologist to assist. If you are a patient with a question regarding this report, pleasecontactyour referring physician evelyne cowan. Professional Interpretation Provided By: [employer], Phone , These documents contain legally protected [...] 08/09/12 1440 by ITS IMPORTSign by Donna Maritn MD on 08/09/12 1441 Sign by: Donna Martin MD 23-Yoh-347791:31 CBC with manual diff Comments: PATIENT NOT FASTINGPERFORMED BY: LabCo Unkzph9557 [facility] [id number] Information: [id number] (84341) Immature Grans (Abs) 0.0 {x10E3/uL} (Normal) Range: [...] 3.77-5.28 WBC 3.2 {x10E3/uL} (Abnormal) Range: 4.0-10.5 13-Rmm-998790:31 Metabolic Panel, Comprehensive Comments: PATIENT NOT FASTINGPERFORMED BY: LabCoSaint Clare's Hospital at DoverLltbqi9464 [facility] [id number] (80308) ALT (SGPT) 19 [iU]/L (Normal) Range: 0-32 [...] mg/dL (Abnormal) Range: 65-99 :31 LIPID PANEL (40867) Comments: PATIENT WAS FASTINGPERFORMED BY: [facility] NetworkCommunity Health [id number] LDL/HDL Ratio 0.8 {ratio_units} (Normal) Range: 0.0-3.2 [...] MANUAL DIFF Comments: PATIENT WAS FASTINGPERFORMED BY: [employer] [facility] HospitalMatchbookCommunity Health [id number] Information: [id number] (41346) Immature Grans (Abs) 0.0 {x10E3/uL} (Normal) Range: [...] PANEL, COMPREHENSIVE Comments: PATIENT WAS FASTINGPERFORMED BY: [facility]6370 [facility] [id number] (28250) ALT (SGPT) 22 [iU]/L (Normal) Range: 0-32 [...] (Abnormal) Range: 65-99 :45 HgA1C , Office (30665) HgA1C , Office 6.1 % (Normal) Range: 4.6 - 7.1 70-Fqb-471942:16 CRE CREAT 1.1 mg/dL (Abnormal) Range: 0.6-1.0 [...] Galan M.D.February 02, 2012 at 5:10:18 PM [id number] Signed PV/PV If you are the referring physician and w sarahild like to consult with theradiologist who provided this interpretation, please contact Donna Burentt M.D. at [phone]. If this radiologist is unavailable, youwillbe directed to another radiol ogist to assist. If you are a patient with a question regarding this report, pleasecontactyour referring physician directly. Professional Interpretation Provided By: Bringg, Phone ,Fa x [phone] These documents contain legally protected and confidential [...] 02/02/121713 S ign by: Donna Martin MD 31-Xzf-391991:16 DEXA BONE DENSITY STUDY (HP) Radiology Report [...] Coronel M.D.January 20, 2012 at 2:43:46 PM [id number] Signed KERA/KERA If you ar e the [...] 01/20/12 1447 Sign by: David Coronel MD 39-Fqt-329859:15 BILAT SCRN DIGITAL & CAD Radiology Report [...] Coronel M.D.January 20, 2012 at 1:20:11 PM [id number] Signed KERA/KERA If you are the referring physician and would like to consult with theradiologist who provided this interpretation, please contact Yasmany Parnell at . If this radiologist is unavailable,youwill be directed to another radiologist to assist. If you are a patient with a question regarding this report, pleasecontactyour referring physician directly. Professional Interpretation Provided By: Bringg, Phone , These documents contain legally protected [...] 01/20/12 1324 Sign by: David Coronel MD 2-Lop-252165:56 PELVIC (NON ) Radiology Report See Note [...] Vuong M.D.January 10, 2012 at 8:39:09 PM [id number] Signed JOHNNY/JOHNNY If you are the referring physician and would like to consult with theradiologist who provided this inte rpretation, please contact Radha Vuong M.D. at [phone]. If this radiologist is unavailable, you will bedirected to another radiologist to assist. If you are a patient with a question regarding this r eport, pleasecontactyour referring physician directly. Professional Interpretation Provided By: Bringg, Phone , PROCEDURE: ULTRASOUND OF THE FEMALE [...] Vuong M.D.January 10, 2012 at 8:40:07 PM [id number] Signed JOHNNY/JOHNNY If you are the referring physician and would like to consult with theradiologist who provided this interpretation, please contact Radha Vuong M.D. at [phone]. If this radiologist is unavailable, you will bedirected to another radiologist to assist. If you are a patient with a question regarding this report, pleasecontactyour referring ysician directly. Professional Interpretation Provided By: [employer]olanda[employer], Phone , These documents contain legally [...] Dictated on 01/10/12 1309 by TATIANA VUONG MDMurray-Calloway County Hospital ribed on 01/11/12 1113 by ITS IMPORTSign by RADHA VUONG MD on 01/11/12 1114 Sign by: RADHA VUONG MD 11-Zcj-94488:35 MICROALBUMIN: CREATININE RATIO Comments: PATIENT WAS FASTINGPERFORMED BY: [employer]6370 [facility] [id number] (62466) AND (48656) Microalb/Creat Ratio 829.4 {mg/g_creat} (Abnormal) Range: 0.0-30.0 Microalbumin, Urine 437.1 ug/mL (Abnormal) Range: 0.0-17.0 Creatinine, Urine 52.7 mg/dL (Normal) Range: 15.0-278.0 :35 CBC WITH MANUAL DIFF Comments: PATIENT WAS FASTINGPERFORMED BY: [employer]6370 [facility] [id number] Information: [id number] (86050) Immature Grans (Abs) 0.0 {x10E3/uL} (Normal) Range: [...] 3.77-5.28 WBC 3.7 {x10E3/uL} (Abnormal) Range: 4.0-10.5 84-Sxa-09151:35 METABOLIC PANEL, COMPREHENSIVE Comments: PATIENT WAS FASTINGPERFORMED BY: LabCoSaint Clare's Hospital at DoverRyxkhy0209 [facility] [id number] (04386) ALT (SGPT) 15 [iU]/L (Normal) Range: 0-32 [...] mg/dL (Abnormal) Range: 65-99 :35 LIPID PANEL (34778) Comments: PATIENT WAS FASTINGPERFORMED BY: [employer] NetworkCommunity Health [id number] LDL/HDL Ratio 0.9 {ratio_units} (Normal) Range: 0.0-3.2 LDL Cholesterol Calc 72 mg/dL (Normal) Range: 0-99 HDL Cholesterol 83 mg/dL (Normal) Comments: According to ATP-III Guidelines, HDL-C >59 mg/dL is considered anegative risk factor for CHD. VLDL Cholesterol Cesar 18 mg/dL (Normal) Range: 5-40 Triglycerides 90 mg/dL (Normal) Range: 0-149 Cholesterol, Total 173 mg/dL (Normal) Range: 100-199 :15 HgA1C , Office (98891) HgA1C , Office 6.2 % (Normal) Range: 4.6 - 7.1 :30 CBC WITH MANUAL DIFF Comments: PATIENT WAS FASTINGPERFORMED BY: Sys[employer] Justice SystemsGallup Indian Medical CenterCyznsx0347 [facility] [id number] Information: [id number] (88954) Immature Grans (Abs) 0.0 {x10E3/uL} (Normal) Range: [...] 3.77-5.28 WBC 4.2 {x10E3/uL} (Normal) Range: 4.0-10.5 05-Idv-42911:30 METABOLIC PANEL, COMPREHENSIVE Comments: PATIENT WAS FASTINGPERFORMED BY: LabCoSaint Clare's Hospital at DoverFfgajj7319 [facility] [id number] (38143) ALT (SGPT) 19 [iU]/L (Normal) Range: 0-40 [...] mg/dL (Abnormal) Range: 65-99 :30 LIPID PANEL (81885) Comments: PATIENT WAS FASTINGPERFORMED BY: LabCoSaint Clare's Hospital at DoverPuacrp3582 [facility] [id number] LDL/HDL Ratio 0.9 {ratio_units} (Normal) Range: 0.0-3.2 [...] note reference interval change :48 Rapid Flu (78716 x 2) Influenza A Ag negative (Normal) [...] redmond M.D.November 05, 2011 at 3:25:08 PM [id number] Signed GP/GP If you are the referring physician and would like to consult with theradiologist who provided this interpretation, please contact Yasmany Pond at [phone]. If this radiologist is unavailable, youwill be directed to another radiologist to assist. If you are a patient with a question regarding this report, ple asecontactyour referring physician directly. Professional Interpretation Provided By: [employer], Phone , These documents contain legally protected [...] redmond M.D.November 05, 2011 at 3:25:08 PM [id number] Signed GP/GP If you are the referring physician and would like to consult with theradiologist who provided this interpretation, please contact Yasmany Pond at [phone]. If this radiologist is unavailable, youwill be directed to another radiologist to assist. If you are a patient with a question regarding this report, ple asecontactyour referring physician directly. Professional Interpretation Provided By: Bringg, Phone , These documents contain legally protected [...] on 11/05/111551 Sign by: Misael Hebert MD 76-Hbh-247769:20 METABOLIC PANEL, Comments: PATIENT WAS FASTINGPERFORMED BY: LabCoSaint Clare's Hospital at DoverEluyuv3977 [facility] [id number] Information: [id number],2ND ORDER NO DRAW F COMPREHENSIVE (27560) ALT (SGPT) 31 [iU]/L (Normal) Range: 0-40 [...] Creatinine Clearance Comments: PATIENT WAS FASTINGPERFORMED BY: For Your ImaginationSaint Clare's Hospital at DoverQutxlu4465 [facility] [id number] Information: 10/30@6AM 10/31@730AM Creatinine Clearance 58 mL/min [...] Qn, 24-Hr Comments: PATIENT WAS FASTINGPERFORMED BY: For Your ImaginationSaint Clare's Hospital at DoverYegwgf0274 [facility] [id number] Urine Prot,24hr calculated 1023.8 {mg/24_hr} (Abnormal) Range: 30.0-150.0 Protein,Total,Urine 52.5 mg/dL (Abnormal) Range: 0.0-15.0 :04 HgA1C , Office (40783) HgA1C , Office 6.1 % (Normal) Range: [...] regarding this repor t, please call our [id number] line @ Dictated on 07/27/11 1040 by GAYE PEREZ MDscribed on 07/28/111224 by ITS IMPORTSign by GAYE PEREZ MD on 07/28/111224 Sign by: GAYE PEREZ MD :54 Vitamin D Hydroxy (86416) Comments: PATIENT WAS FASTINGPERFORMED BY: [employer]6370 [facility] [id number] Vitamin D, 25-Hydroxy 48.8 ng/mL (Normal) Range: 30.0-100.0 Comments: Vitamin D deficiency has been defined by the Mutual ofMedicine and an Endocrine Society practice guideline as alevel of serum 25-OH vitamin D less than 20 ng/mL (1,2).The Endocrine Society went on to further define vitamin Dinsufficiency as a level between 21 and 29 ng/mL (2).1. IOM (Mutual of Medicine). 2010. Dietary reference intakes for calcium and D. [place]: The National Academies Press.2. Mira MF, Rosette NC, Tommy SWAIN, et al. Evaluation, treatment, and prevention of vitamin D deficiency: an Endocrine Society clinical practice guideline. JCEM. 2010; 96(7):1911-30. :54 LIPID PANEL (46538) Comments: PATIENT WAS FASTINGPERFORMED BY: [employer]6370 [facility] [id number] LDL/HDL Ratio 1.0 {ratio_units} (Normal) Range: 0.0-3.2 [...] MANUAL DIFF Comments: PATIENT WAS FASTINGPERFORMED BY: Aktana [employer] [place] [id number] Information: ADD [id number] AND DRAW FEE [id number] 3276 (49009) Immature Grans (Abs) 0.0 {x10E3/uL} (Normal) Range: [...] 3.77-5.28 WBC 4.3 {x10E3/uL} (Normal) Range: 4.0-10.5 33-Llc-98846:54 METABOLIC PANEL, COMPREHENSIVE Comments: PATIENT WAS FASTINGPERFORMED BY: LabCoSaint Clare's Hospital at DoverJlsxnw1864 [facility] [id number] (22754) ALT (SGPT) 48 [iU]/L (Abnormal) Range: 0-40 [...] (Abnormal) Range: 65-99 :18 HgA1C , Office (75324) HgA1C , Office 6.1 % (Normal) Range: 4.6 - 7.1 :18 Blood Glucose , Office (92661) Blood Glucose , Office 103 (Normal) 94-Tud-91966:00 ABDOMEN WITH AND W/O CONTRAST Radiology Report [...] radiologist regarding this report, please call our [id number] line @ Dictated on 03/18/11 1715 by Keaton MANN,JennieieTranscribed on 03/22/11 1401 by ITS IMPORTSign by Jeanette Hill MD on 03/22/11 1402 Sign by: Jeanette Pugh MD 47-Oze-164412:29 SERUM CRE & GFR CREAT,SERUM 1.1 mg/dL (Abnormal) Range: 0.6-1.0 06-Nsx-99661:00 BRAIN W/WO CONTRAST Radiology Report See Note [...] seen in the right frontal white matter seed core operator ior to themasswithout interval change. The [...] 03/02/11 173 Sign by: Donna Martin MD 98-Zfn-81711:00 UPPER EXT. JOINT ONLY(ROUTINE) Radiology Report See [...] on 03/04/11 1035 Sign by: Ankur Duncan 01-Psc-047341:08 SHOULDER,MIN 2 VIEWS Radiology Report See Note [...] 02/01/11 1021 Sign by: ALEJANDRO DRUMMOND DO 87-Ssw-509024:57 SINUS/FACIAL BONE Radiology Report See Note (Normal) [...] 01/19/11 1448 Sign by: Misael Hebert MD 74-Cxs-99541:00 BRAIN W/WO CONTRAST Radiology Report See Note [...] addition, there is a small region of zhgbxfgswB6fgosbrxznd along the anterior margin of the mass, [...] on 01/19/111650 Sign by: GAYE PEREZ MD 03-Pmh-97151:00 BRAIN/HEAD W/WO CONTRAST Radiology Report See Note [...] 01/19/11 1447 Sign by: Misael Hebert MD 37-Dcf-829066:08 BILAT SCRN DIGITAL & CAD Radiology Report [...] CREATININE RATIO Comments: PATIENT NOT FASTINGPERFORMED BY: LabCoSaint Clare's Hospital at DoverIzqjmc2819 [facility] [id number] (50190) AND (64863) Microalb/Creat Ratio 1028.4 {mg/g_creat} (Abnormal) Range: 0.0-30.0 Microalbumin, Urine 1341.0 ug/mL (Abnormal) Range: 0.0-17.0 Creatinine, Urine 130.4 mg/dL (Normal) Range: 15.0-278.0 :20 CBC WITH MANUAL DIFF (11863) Comments: PATIENT NOT FASTINGPERFORMED BY: LabCoSaint Clare's Hospital at DoverXbyaqe6181 [facility] [id number] Immature Grans (Abs) 0.0 {x10E3/uL} (Normal) Range: [...] {x10E3/uL} (Normal) Range: 4.0-10.5 :20 LIPID PANEL (32317) Comments: PATIENT NOT FASTINGPERFORMED BY: mygall6370 [facility] [id number] LDL/HDL Ratio 0.9 {ratio_units} (Normal) Range: 0.0-3.2 [...] PANEL, COMPREHENSIVE Comments: PATIENT NOT FASTINGPERFORMED BY: mygall6370 [facility] [id number] (84716) ALT (SGPT) 28 [iU]/L (Normal) Range: 0-40 [...] (Abnormal) Range: 65-99 :39 HgA1C , Office (09819) HgA1C , Office 6.5 % (Normal) Range: 4.6 - 7.1 :39 Blood Glucose , Office (64500) Blood Glucose , Office 128 (Normal) :19 CBC With Differential/Platelet Comments: PATIENT WAS FASTINGPERFORMED BY: LabCo Inodvl4173 [facility] [id number] Immature Grans (Abs) 0.0 {x10E3/uL} (Normal) Range: [...] 3.80-5.10 WBC 5.6 {x10E3/uL} (Normal) Range: 4.0-10.5 2-Dfa-713459:19 Comp. Metabolic Panel (14) Comments: PATIENT WAS FASTINGPERFORMED BY: LabCoSaint Clare's Hospital at DoverKqedak2839 [facility] [id number]; appt 01/11/11 ALT (SGPT) 18 [iU]/L (Normal) [...] Glucose, Serum 113 mg/dL (Abnormal) Range: 65-99 4-Etd-672967:19 Lipid Panel With LDL/HDL Comments: PATIENT WAS FASTINGPERFORMED BY: [employer]6370 [facility] [id number] Ratio LDL/HDL Ratio 1.0 {ratio_units} Range: 0.0-3.2 [...] 0.800 {uIU/mL} Comments: PATIENT WAS FASTINGPERFORMED BY: Aktana [facility] Sdawtd7934 [facility] [id number] 2:19 (Normal) Range: 0.450-4.500 Vitamin D, 25-Hydroxy 44.0 ng/mL (Normal) Comments: PATIENT WAS FASTINGPERFORMED BY: Aktana [facility] Satkvc8693 [facility] [id number] 2:19 Range: 32.0-100.0 Comments: Effective February 22, 2011 Vitamin D, 25-Hydroxy reference intervals will be changing to 30-100. .Recent studies consider the lower li sandra of 32.0 ng/mL to be athreshold for optimal health.Otf HAYES. J Nutr. 2004;135(2):317-22. 35-Aot-198189:54 HgA1C , Office (60129) HgA1C , Office 6.6 % (Normal) Range: 4.6 - 7.1 :54 Blood Glucose , Office (54719) Blood Glucose , Office 134 (Normal) :40 Creatinine Clearance Comments: PERFORMED BY: [employer] Eqchfm7076 [facility] [id number] Information: 10/07@7AM 10/08@3AM Creatinine Clearance 56 mL/min [...] Protein Total, Qn, 24-Hr Comments: PERFORMED BY: [employer] Your [employer] Ylrtka8001 [facility]ysCommunity [facility] [id number] Urine Prot,24hr calculated 610.5 {mg/24_hr} (Abnormal) Range: 30.0-150.0 Protein,Total,Urine 40.7 mg/dL (Abnormal) Range: 0.0-15.0 :46 Vitamin D Hydroxy (85184) Comments: PATIENT WAS FASTINGPERFORMED BY: [employer] Qxdtzd9499 [facility] [id number] Vitamin D, 25-Hydroxy 36.5 ng/mL (Normal) Range: 32.0-100.0 Comments: Recent studies consider the lower limit of 32.0 ng/mL to be athreshold for optimal health.Otf HAYES. J Nutr. 2004;135(2):317-22. :46 METABOLIC PANEL, COMPREHENSIVE Comments: PATIENT WAS FASTINGPERFORMED BY: [employer] Vxkvxr2727 [facility] [id number] (50457) ALT (SGPT) 34 [iU]/L (Normal) Range: 0-40 [...] Glucose, Serum 116 mg/dL (Abnormal) Range: 65-99 9-Jnp-124325:46 LIPID PANEL (96358) Comments: PATIENT WAS FASTINGPERFORMED BY: LabCoSaint Clare's Hospital at DoverHwjuwh0631 [facility] [id number] LDL Cholesterol Calc 85 mg/dL (Normal) Range: 0-99 LDL/HDL Ratio 1.2 {ratio_units} (Normal) Range: 0.0-3.2 VLDL Cholesterol Cesar 28 mg/dL (Normal) Range: 5-40 HDL Cholesterol 69 mg/dL (Normal) Comments: According to ATP-III Guidelines, HDL-C >59 mg/dL is considered anegative risk factor for CHD. Cholesterol, Total 182 mg/dL (Normal) Range: 100-199 Triglycerides 141 mg/dL (Normal) Range: 0-149 2-Fbt-479658:46 CBC WITH MANUAL DIFF Comments: PATIENT WAS FASTINGPERFORMED BY: LabCo Miuppn3813 [facility] [id number] Information: [id number]; appt 10/12/10 (64869) Immature Grans (Abs) 0.0 {x10E3/uL} (Normal) Range: [...] (Normal) Range: 4.0-10.5 :07 HgA1C , Office (55728) HgA1C , Office 6.6 % (Normal) Range: 4.6 - 7.1 :07 Blood Glucose , Office (30774) Blood Glucose , Office 114 (Normal) 19-Gdj-809218:00 Creatinine Clearance Comments: PERFORMED BY: [employer] Your Im[employer]ination [address] [facility] [id number] Information: 12/31@8AM 01/01@4AM Creatinine Clearance 48 mL/min [...] Creatinine, Serum 1.20 mg/dL (Abnormal) Range: 0.57-1.00 13-Qaq-680648:00 Protein Total, Qn, 24-Hr Comments: PERFORMED BY: For Your ImaginationSaint Clare's Hospital at DoverFzzgrl7022 [facility] [id number] Urine Prot,24hr calculated 1070.6 {mg/24_hr} (Abnormal) Range: 30.0-150.0 Protein,Total,Urine 79.3 mg/dL (Abnormal) Range: 0.0-15.0 47-Ulc-109404:48 BILAT SCRN DIGITAL & CAD Radiology Report See Note (Normal) Comments: Exam Number: [id number] MAMMOGRAPHY - BILATERAL SCREENING INDICATION:Routine annual screening [...] of attaching a ResultCode to this exam.ADDENDUM: [id number] HPBI/MDS Reported By: MISAEL HEBERT 21-Lhb-175201:48 DEXA BONE DENSITY STUDY (HP) Radiology Report See Note (Normal) Comments: Exam Number: [id number] CLINICAL:This is a 69-year-old female patient with postmenopausal screening. EXAMINATION:DUAL ENERGY X-RAY ABSORPTIOMETRY / DEXA. TECHNIQUE:Bone Density Measurements (BMD) of lumb ar spine and bilateral hipswere obtained using a Planet8 scanner.. COMPARISON:None. FINDINGS: Lumbar Spine (L1-L4): g/cm2 [...] Osteoporosis Foundation http://www.nof.org Reported By: MISAEL HEBERT 31-Cvu-868541:29 HgA1C , Office (36600) HgA1C , Office 6.5 % (Normal) Range: 4.6 - 7.1 38-Eqm-649799:29 Blood Glucose , Office (92334) Blood Glucose , Office 109 (Normal) 84-Jhb-31998:05 CBC With Differential/Platelet Comments: PATIENT WAS FASTINGPERFORMED BY: [facility] Kdozmv7320 [facility] [id number] Immature Grans (Abs) 0.0 {x10E3/uL} (Normal) Range: [...] 3.80-5.10 WBC 3.9 {x10E3/uL} (Abnormal) Range: 4.0-10.5 56-Hdg-72313:05 Comp. Metabolic Panel (14) Comments: PATIENT WAS FASTINGPERFORMED BY: LabCo Oupqsb8646 [facility] [id number] ALT (SGPT) 20 [iU]/L (Normal) Range: 0-40 [...] With LDL/HDL Comments: PATIENT WAS FASTINGPERFORMED BY: [employer]70 Yoyi MediaReplaced by [facility] [id number] Ratio HDL Cholesterol 54 mg/dL (Normal) Comments: [...] ng/mL (Normal) Comments: PATIENT WAS FASTINGPERFORMED BY: Aktana [facility] Rhgdhp5713 [facility] [id number] :05 Range: 32.0-100.0 Comments: Recent studies consider the lower limit of 32.0 ng/mL to be athreshold for optimal health.Otf HAYES. J Nutr. 2004;135(2):317-22. :41 SPLEEN (HP) Radiology Report See Note (Normal) Comments: Exam Number: [id number] ULTRASOUND OF THE SPLEEN A goal directed [...] Protein, 0.5 mg/L (Normal) Comments: PERFORMED BY: [employer] Rrcomh8761 [facility] [id number] 10:54 Quant Range: 0.0-4.9 17-Jun-2009 Hemoglobin A1c 6.3 % (Abnormal) Comments: PERFORMED BY: [employer] Your [employer] Kitocr7327 [facility] [id number] 10:54 Range: 4.8-5.6 Comments: Increased risk for diabetes: 5.7 - 6.4Diabetes: >6.4Glycemic control for adults with diabetes: <7.0.Please note reference interval change 17-Jun-2009 Sedimentation 4 mm/h (Normal) Comments: PERFORMED BY: [employer] Your Im[employer]ination [address] [facility] [id number] 10:54 Rate-Westergren Range: 0-30 17-Jun-2009 Vitamin B12 1372 pg/mL Comments: PERFORMED BY: [employer]70 [facility] [id number] 10:54 (Abnormal) Range: 211-911 Comments: Effective July 14, 2009, Vitamin B12 will bechanging to the [place] ECLIA methodology. Thereference interval will be changing to:211 - 946 pg/mL 17-Jun-2009 Vitamin D, 25-Hydroxy 37.7 ng/mL Comments: PERFORMED BY: [employer] Nicwqs8511 [facility] [id number] 10:54 (Normal) Range: 32.0-100.0 Comments: Recent studies consider the lower limit of 32.0 ng/mL to be athreshold for optimal health.Otf HAYES. J Nutr. 2004;135(2):317-22. 93-Gwi-439356:34 Vitamin D Hydroxy Comments: PATIENT NOT FASTINGPERFORMED BY: [employer] Your [employer] Kaiipk6803 [facility] [id number] Information: G10594,2ND ORDER NO DRAW F EE (14859) Vitamin D, 25-Hydroxy 48.5 ng/mL (Normal) Range: 30.0-100.0 Comments: Vitamin D deficiency has been defined by the Mutual ofMedicine and an Endocrine Society practice guideline as alevel of serum 25-OH vitamin D less than 20 ng/mL (1,2).The Endocrine Society went on to further define vitamin Dinsufficiency as a level between 21 and 29 ng/mL (2).1. IOM (Mutual of Medicine). 2010. Dietary reference intakes for calcium and D. [place]: The National Academies Press.2. Mira MF, Rosette LOPEZ, Tommy SWAIN, et al. Evaluation, treatment, and prevention of vitamin D deficiency: an Endocrine Society clinical practice guideline. JCEM. 2010; 96(7):1911-30. :50 HgA1C , Office (23565) HgA1C , Office 6.7 % (Normal) Range: 4.6 - 7.1 :50 Blood Glucose , Office (73193) Blood Glucose , Office 117 (Normal) 43-Qcf-014183:12 CBC With Differential/Platelet Comments: PERFORMED BY: LabCoSaint Clare's Hospital at DoverUtiizg7186 [facility] [id number] Information: 06/10@6AM3/10@330AM Hematology Comments: Note: (Normal) Comments: [...] 3.80-5.10 WBC 3.6 {x10E3/uL} (Abnormal) Range: 4.0-10.5 08-Exp-975064:12 Comp. Metabolic Panel (14) Comments: PERFORMED BY: [facility]6370 [facility] [id number] Alkaline Phosphatase, S 68 [iU]/L (Normal) Range: [...] Glucose, Serum 124 mg/dL (Abnormal) Range: 65-99 18-Ofe-827058:12 Creatinine Clearance Comments: PERFORMED BY: [facility] [id number] Creatinine Clearance 49 mL/min (Abnormal) Range: 88-128 Comments: The above range is based on 1.73 square meter average body surfacearea. Creatinine, Ur 24hr 800.0 {mg/24_hr} (Normal) Range: 800.0-1800.0 Creatinine, Urine 40.0 mg/dL (Normal) Range: 15.0-278.0 31-Rvs-836832:12 Lipid Panel With LDL/HDL Comments: PERFORMED BY: [facility] [id number] Ratio HDL Cholesterol 61 mg/dL (Normal) Comments: According to ATP-III Guidelines, HDL-C >59 mg/dL is considered anegative risk factor for CHD. LDL Cholesterol Calc 74 mg/dL (Normal) Range: 0-99 LDL/HDL Ratio 1.2 {ratio_units} (Normal) Range: 0.0-3.2 VLDL Cholesterol Cesar 17 mg/dL (Normal) Range: 5-40 Cholesterol, Total 152 mg/dL (Normal) Range: 100-199 Triglycerides 87 mg/dL (Normal) Range: 0-149 13-Fam-315213:12 Protein Total, Qn, 24-Hr Comments: PERFORMED BY: [facility] [id number] Urine Prot,24hr calculated 1172.0 {mg/24_hr} Range: 30.0-150.0 (Abnormal) Protein,Total,Urine 58.6 mg/dL (Abnormal) Range: 0.0-15.0 TSH 1.280 {uIU/mL} Comments: PERFORMED BY: bitmovinCoSaint Clare's Hospital at DoverFmtswp8354 [facility] [id number] 1:12 (Normal) Range: 0.450-4.500 :58 HgA1C , Office (92873) HgA1C , Office 6.0 % (Normal) Range: 4.6 - 7.1 :58 Blood Glucose , Office (57102) Blood Glucose , Office 113 (Normal) :03 CBC With Differential/Platelet Comments: PATIENT WAS FASTINGPERFORMED BY: For Your ImaginationSaint Clare's Hospital at DoverTxhsmj3172 [facility] [id number] Baso (Absolute) 0.0 {x10E3/uL} (Normal) Range: 0.0-0.2 [...] 11.7-15.0 WBC 3.2 {x10E3/uL} (Abnormal) Range: 4.0-10.5 9-Khy-685769:03 Comp. Metabolic Panel (14) Comments: PATIENT WAS FASTINGPERFORMED BY: LabCoSaint Clare's Hospital at DoverEankyr3029 [facility] [id number] A/G Ratio 2.0 (Normal) Range: 1.1-2.5 Albumin, [...] Glucose, Serum 116 mg/dL (Abnormal) Range: 65-99 8-Pud-732585:03 Lipid Panel With LDL/HDL Comments: PATIENT WAS FASTINGPERFORMED BY: [employer]70 [facility] [id number] Ratio Cholesterol, Total 167 mg/dL (Normal) Range: [...] ng/mL (Normal) Comments: PATIENT WAS FASTINGPERFORMED BY: [employer]70 [facility] [id number] :03 Range: 32.0-100.0 Comments: Recent studies consider the lower limit of 32.0 ng/mL to be athreshold for optimal health.Otf HAYES. J Nutr. 2004;135(2):317-22. 07-Lqr-392039:32 Urinalysis, Office (33461) UA - BILIRUBIN Negative (Normal) UA - BLOOD Hemolyzed Trace (Normal) UA - GLUCOSE Negative (Normal) UA - KETONES Negative mg/dL (Normal) UA - LEUKOCYTE ESTERASE Negative (Normal) UA - NITRITE Negative (Normal) UA - PH 6.5 (Normal) UA - PROTEIN 300 mg/dL (Normal) UA - SPECIFIC GRAVITY 1.020 (Normal) URINE UROBILINGN JATINDER TIMED 2 mg/dL (Normal) 5-Cxw-176863:19 URINE SETH CULTURE-JATINDER COL Comments: PATIENT NOT FASTINGClinical Information: SRC:UR ADD [id number] PERFORMED BY: [employer]70 [facility] [id number] COUNT (95569) Result 1 ECV (Normal) Comments: Escherichia coli, [...] report (Normal) Culture,Comprehensiv e 09-Jan-20098:17 Urinalysis, Office (76208) UA - BILIRUBIN Negative (Normal) UA - BLOOD Hemolyzed Large (Normal) UA - GLUCOSE Negative (Normal) UA - KETONES Negative mg/dL (Normal) UA - LEUKOCYTE ESTERASE Moderate (Normal) UA - NITRITE Negative (Normal) UA - PH 7.0 (Normal) UA - PROTEIN 300 mg/dL (Normal) UA - SPECIFIC GRAVITY 1.020 (Normal) URINE UROBILINGN JATINDER TIMED 2 mg/dL (Normal) 9-Mlo-405492:05 Comp. Metabolic Panel (14) Comments: PATIENT WAS FASTINGPERFORMED BY: LabCoSaint Clare's Hospital at DoverMpyrvs6577 [facility] [id number] A/G Ratio 1.7 (Normal) Range: 1.1-2.5 Albumin, [...] Panel (7) Comments: PATIENT WAS FASTINGPERFORMED BY: [employer] [facility] [id number] Bilirubin, Direct 0.12 mg/dL (Normal) Range: 0.00-0.40 :05 Lipid Panel With LDL/HDL Comments: PATIENT WAS FASTINGPERFORMED BY: [employer] [facility] [id number] Ratio Cholesterol, Total 170 mg/dL (Normal) Range: [...] mg/dL (Normal) Comments: PATIENT WAS FASTINGPERFORMED BY: [employer] [facility] [id number] :05 Range: 2.5-4.5 PTH, Intact 19 pg/mL (Normal) Comments: PATIENT WAS FASTINGPERFORMED BY: [employer]6370 [facility] [id number] :05 Range: 15-65 Vitamin D, 25-Hydroxy 38.9 ng/mL (Normal) Comments: PATIENT WAS FASTINGPERFORMED BY: [facility]6370 [facility] [id number] :05 Range: 32.0-100.0 Comments: Recent studies consider the lower limit of 32.0 ng/mL to be athreshold for optimal health.Otf HAYES. J Nutr. 2004;135(2):317-22. :40 HgA1C , Office (52753) HgA1C , Office 6.0 % (Normal) Range: 4.6 - 7.1 :40 Blood Glucose , Office (09334) Blood Glucose , Office 109 (Normal) :42 CBC With Differential/Platelet Comments: PATIENT WAS FASTINGPERFORMED BY: [facility]6370 [facility] [id number] Baso (Absolute) 0.0 {x10E3/uL} (Normal) Range: 0.0-0.2 [...] 11.7-15.0 WBC 4.2 {x10E3/uL} (Normal) Range: 4.0-10.5 31-Eob-776092:42 Comp. Metabolic Panel (14) Comments: PATIENT WAS FASTINGPERFORMED BY: LabCoSaint Clare's Hospital at DoverVccvaa0458 [facility] [id number] A/G Ratio 1.6 (Normal) Range: 1.1-2.5 Albumin, [...] Sodium, Serum 140 mmol/L (Normal) Range: 135-145 0-Qtd-018149:09 FECAL OCCULT HGB ASSAY, QUAL, 1-3 SIMULTANEOUS DETERMINATIONS (88230) FECAL OCCULT HGB ASSAY, QUAL, 1-3 SIMULTANEOU neg (Normal) :42 Microscopic Examination Comments: PATIENT WAS FASTINGPERFORMED BY: [facility]Community [facility] [id number] Bacteria None seen (Normal) Cast Type Hyaline casts (Normal) Casts Present {/lpf} (Abnormal) Epithelial Cells (non renal) 0-10 {/hpf} (Normal) Range: 0 - 10 Mucus Threads Present (Normal) RBC 0-3 {/hpf} (Normal) Range: 0 - 3 WBC 0-5 {/hpf} (Normal) Range: 0 - 5 :42 URINALYSIS W/O MICRO (72900) Comments: PATIENT WAS FASTINGPERFORMED BY: [facility]Community [facility] [id number] Appearance Clear (Normal) Bilirubin Negative (Normal) Glucose Negative (Normal) Ketones Negative (Normal) Microscopic Examination See below: (Normal) Nitrite, Urine Negative (Normal) Occult Blood Negative (Normal) pH 5.0 (Normal) Range: 5.0-7.5 Protein 1+ (Abnormal) Specific Surrency 1.013 (Normal) Range: 1.005-1.030 Urine-Color Yellow (Normal) Urobilinogen,Semi-Qn 0.2 mg/dL (Normal) Range: 0.0-1.9 WBC Esterase 1+ (Abnormal) :42 MICROALBUMIN: CREATININE RATIO Comments: PATIENT WAS FASTINGPERFORMED BY: [facility]Community [facility] [id number] (52505) AND (80094) Creatinine, Urine 76.1 mg/dL (Normal) Range: 15.0-278.0 Microalb/Creat Ratio 292.1 {ug/mg_creat} (Abnormal) Range: 0.0-30.0 Microalbumin, Urine 222.3 ug/mL (Abnormal) Range: 0.0-17.0 :42 CBC WITH MANUAL DIFF (01988) Comments: PATIENT WAS FASTINGClinical Information: ADD DRAW FEE [id number] ADD J 63111 PERFORMED BY: [employer] [facility] [id number] Baso (Absolute) 0.0 {x10E3/uL} (Normal) Range: 0.0-0.2 [...] WAS FASTINGPERFORMED BY: LabCoSaint Clare's Hospital at DoverTfhuhv5456 [facility] [id number] (36191) A/G Ratio 1.8 (Normal) Range: 1.1-2.5 Albumin, [...] Sodium, Serum 141 mmol/L (Normal) Range: 135-145 7-Oli-205104:23 HgA1C , Office (96451) HgA1C , Office 6.0 % (Normal) Range: 4.6 - 7.1 4-Inc-568772:23 Blood Glucose , Office (48364) Blood Glucose , Office 103 (Normal) 55-Ggz-315097:38 CBC WITH MANUAL DIFF (94253) Comments: PATIENT WAS FASTINGClinical Information: ADD DRAW FEE [id number] ADD J 48089 PERFORMED BY: EVE [employer] Kwysev5496 [facility] [id number] Baso (Absolute) 0.0 {x10E3/uL} (Normal) Range: 0.0-0.2 [...] 11.7-15.0 WBC 4.0 {x10E3/uL} (Normal) Range: 4.0-10.5 19-Ppj-826262:38 METABOLIC PANEL, COMPREHENSIVE Comments: PATIENT WAS FASTINGPERFORMED BY: bitmovinCoSaint Clare's Hospital at DoverPtsjre[address] [place] [address] [id number] (08693) A/G Ratio 1.8 (Normal) Range: 1.1-2.5 Albumin, [...] Sodium, Serum 142 mmol/L (Normal) Range: 135-145 86-Exf-071490:38 HEPATIC FUNCTION PANEL Comments: PATIENT WAS FASTINGPERFORMED BY: Aktana [facility] Bkyyru5441 [facility] [id number] (82735) Bilirubin, Direct 0.08 mg/dL (Normal) Range: 0.00-0.40 75-Toh-151526:38 LIPID PANEL (10916) Comments: PATIENT WAS FASTINGPERFORMED BY: Aktana [facility] Qjurcj8193 [facility] [id number] Cholesterol, Total 200 mg/dL (Abnormal) Range: 100-199 [...] (Normal) Range: 5-40 :36 HgA1C , Office (62513) HgA1C , Office 6.1 % (Normal) Range: 4.6 - 7.1 :36 Blood Glucose , Office (76252) Blood Glucose , Office 98 (Normal) :33 CBC With Differential/Platelet Comments: PATIENT WAS FASTINGClinical Information: SRC:UR PERFORMED BY: [facility]6370 [facility] [id number] Baso (Absolute) 0.0 {x10E3/uL} (Normal) Range: 0.0-0.2 [...] 11.7-15.0 WBC 4.8 {x10E3/uL} (Normal) Range: 4.0-10.5 61-Don-223084:33 Comp. Metabolic Panel (14) Comments: PATIENT WAS FASTINGPERFORMED BY: [facility]CoSaint [facility] [id number] [id number] A/G Ratio 1.6 (Normal) Range: 1.1-2.5 Albumin, [...] Serum 92 mg/dL (Normal) Range: 65-99 If -Burmese 57 mL/min/1.73 Comments: Note: Persistent reduction for [...] With LDL/HDL Comments: PATIENT WAS FASTINGPERFORMED BY: For Your ImaginationSaint Clare's Hospital at DoverAybejh0821 [facility] [id number] Ratio Cholesterol, Total 174 mg/dL (Normal) Range: [...] Urine Culture,Comprehensive Comments: PATIENT WAS FASTINGPERFORMED BY: For Your ImaginationSaint Clare's Hospital at DoverTuodvf8431 [facility] [id number] Antimicrobial MIHEAD (Normal) Comments: S = Susceptible; [...] Enterococcus. (Normal) Urine Final report (Normal) Culture,Comprehensive 5-Gwf-739733:10 HgA1C , Office (37355) HgA1C , Office 5.9 % (Normal) Range: [...] mL (Normal) URINE PROTEIN 20.0 mg/dL (Abnormal) 00-Gjf-728297:17 Urine Culture,Comprehensive Comments: Clinical Information: SRC:UR PERFORMED BY: [facility]6370 [facility] [id number] Result 1 CNSNSS (Normal) Comments: Coagulase negative Staphylococcus species, not Staphylococcussaprophyticus.600 Colonies/mLSusceptibility or resistance of staphylococci to oxacillin predictssusceptibility or resistance to (a) other be lg-rklsleemy-aowoxcebsgkglgcaw such as cloxacillin and dicloxacillin, (b) combinationsof a penicillin and a beta-lactamase inhibitor, and(c) anti- staphylococcal cephalosporins. Routine testing of otherp enicillins, beta-lactam/beta-lactamase inhibitor combinations,cephems, and carbapenems is not advised by the CLSI Standards(W068-E86, 2005). S = Susceptible; I = Intermediate; R = Resistant * P = Positive; N = Negative MICS are expressed in micrograms per mL Antibiotic RSLT#1 RSLT#2 RSLT#3 RSLT#4Ciprofloxacin RGentami kristian SLevofloxacin RNitrofurantoin SOxacillin SPenicillin RRifampin STrimethoprim/Sulfa SVancomycin S Urine Final report Culture,Comprehensi (Normal) ve :53 Metabolic Panel, Basic (40209) Comments: PATIENT NOT FASTINGClinical Information: ADD DRAW FEE 199560 ADD J 34689 PERFORMED BY: [facility] [id number] [facility] [id number] BUN 39 mg/dL (Abnormal) Range: 5-26 BUN/Creatinine Ratio 33 (Abnormal) Range: 8-27 Calcium, Serum 9.8 mg/dL (Normal) Range: 8.5-10.6 Carbon Dioxide, Total 22 mmol/L (Normal) Range: 20-32 Chloride, Serum 103 mmol/L (Normal) Range: 97-108 Creatinine, Serum 1.20 mg/dL (Abnormal) Range: 0.57-1.00 Glom Filt Rate, Est 45 mL/min/1.73 Range: 60-128 (Abnormal) Glucose, Serum 101 mg/dL (Abnormal) Range: 65-99 If -Burmese 55 mL/min/1.73 Range: 60-128 (Abnormal) Comments: Note: Persistent reduction for 3 months or more in an eGFR<60 mL/min/1.73 m2 defines CKD. Patients with eGFR values>/=60 mL/min/1.73 m2 may also have CKD if evidence of persistentproteinuria is present. Additional information may be found [email or web address].org. Potassium, Serum 5.1 mmol/L (Normal) Range: 3.5-5.2 Sodium, Serum 139 mmol/L (Normal) Range: 135-145 :09 HgA1C , Office (36567) HgA1C , Office 6.1 % (Normal) Range: 4.6 - 7.1 :09 Blood Glucose , Office (90065) Blood Glucose , Office 163 (Normal) :37 SPINE,LUMBAR (ROUTINE) Radiology Report See Note (Normal) Comments: Exam Number: [id number] MRI LUMBAR SPINE CLINICAL STATEMENTLow back pain [...] onboth sides. Reported By: MODESTA COPE M.D. 52-Ilw-902829:00 [facility] CAD Radiology Report See Note (Normal) Comments: Exam Number: [id number] MAMMOGRAM, BILATERAL SCREENING DIGITAL AND CAD HISTORYRoutine screening. Full field digital images were obtained in mediolateral oblique andcraniocaudal projections. CAD images w ere reviewed. The current study is [facility]. A small metal marker is placed [...] mammograms werealso examined with computer-aided detection software ([employer], [employer] Reported By: DNONA OJEDA M.D. :59 DEXA BONE DENSITY STUDY (HP) Radiology Report See Note (Normal) Comments: Exam Number: [id number] BONE DENSITOMETRY HISTORYPost menopausal. TECHNIQUE Bone densitometry [...] Report See Note (Normal) Comments: Exam Number: [id number] FIVE VIEW LUMBAR SPINE AP, lateral, both [...] By: MAIRA GARZA M.D. :19 Microalb/Creat Ratio, [facility] Comments: PATIENT NOT FASTINGPERFORMED BY: LabCoSaint Clare's Hospital at DoverUvegie2432 [facility] [id number] Creatinine, Urine 46.8 mg/dL (Normal) Microalb/Creat Ratio 712.8 {ug/mg_creat} (Abnormal) Range: 0.0-30.0 Microalbum.,U,Random 333.6 ug/mL (Abnormal) Range: 0.0-17.0 :13 Creatinine Clearance Comments: PATIENT NOT FASTINGClinical Information: HT-5'4'' WT-184 PERFORMED BY: [employer] [id number] [facility] [id number] Creatinine Clearance 40 mL/min (Abnormal) Range: 88-128 Comments: The above range is based on 1.73 square meter average body surfacearea. Creatinine, Serum 1.30 mg/dL (Normal) Range: 0.50-1.50 Creatinine, Ur 24hr 754.8 {mg/24_hr} Range: 800.0-1800.0 (Abnormal) Creatinine, Urine 44.4 mg/dL (Normal) Glom Filt Rate, Est 41 mL/min (Abnormal) Range: 60-128 If -Burmese 50 mL/min (Abnormal) Range: 60-128 Comments: Note: Persistent reduction for 3 months or more in an eGFR<60 mL/min/1.73 m2 defines CKD. Patients with eGFR values>/=60 mL/min/1.73 m2 may also have CKD if evidence of persistentproteinuria is present. .Additional information may be found at www.kdoqi.org. :13 Protein Total, Qn, 24-Hr Comments: PATIENT NOT FASTINGPERFORMED BY: [employer] [id number] [facility] [id number] Urine Protein,Total,Urine 49.0 mg/dL (Abnormal) Range: 0.0-15.0 Prt, 24hr calculated 833.0 {mg/24_hr} (Abnormal) Range: 30.0-150.0 83-Xjy-520871:00 CBCD,SMEAR DIFF CELLS COUNTED 100 (Normal) EOS [...] T PROT 6.6 g/dL (Normal) Range: 6.4-8.2 48-Wna-533338:00 D BILI 0.06 mg/dL (Normal) Range: 0.00-0.30 54-Brt-349803:00 LIPID CHOL 175 mg/dL (Normal) Comments: <200 [...] mg/dL VLDL 12 mg/dL (Normal) Range: 5-40 37-Mff-481252:00 TSH 0.84 {uIU/mL} (Normal) Range: 0.34-4.82 Plan [...] of skin Planned Observations Vitamin D Hydroxy (64498)Indication: Vitamin D deficiency On: :25 Request URINALYSIS, W/ MICRO (05815)Indication: Chronic kidney disease, stage 3 On: :25 Request LIPID PANEL (45736)Indication: Mixed hyperlipidemia On: : Request CBC W/AUTO DIFF WBC (68072)Indication: Chronic kidney disease, stage 3 On: :25 Request METABOLIC PANEL, COMPREHENSIVE (86913)Indication: Chronic kidney disease, stage 3 On: :25 Request HGB A1C (73853)Indication: Diabetes mellitus type II, controlled On: 99-Ski-210343:24 Request Parathyroid Hormone-related Peptide (PTH-rP) (43966)Indication: Vitamin D deficiency On: 0-Kjl-089997:43 Request Comments: send results to Dr. Santana fax: [phone] VITAMIN D, 1, 25-DIHYDROXY (72089)Indication: Vitamin D deficiency On: 3-Btp-732799:42 Request Comments: send results to Dr. Santana fax: [phone] Clostridium difficile Toxin A+B, EIA (37456)Indication: Chronic diarrhea On: 4-Nut-987432:36 Request Vitamin D Hydroxy (84914)Indication: Osteopenia On: 5-Gej-122499:20 Request CBC W/AUTO DIFF WBC (45276)Indication: Hypertension, benign On: 5-Ita-276666:16 Request CALCIFEDIOL (48355)Indication: Chronic kidney disease, stage 3 On: :04 Request Renal function Panel (02156)Indication: Chronic kidney disease, stage 3 On: :04 Request Magnesium (94343)Indication: Chronic kidney disease, stage 3 On: :04 Request MICROALBUMIN: CREATININE RATIO (02092) AND (41302)Indication: Chronic kidney disease, stage 3 On: :04 Request Parathyroid Hormone-related Peptide (PTH-rP) (28984)Indication: Chronic kidney disease, stage 3 On: :04 Request T4, FREE (THYROXINE) (22778)Indication: Cold feeling On: :31 Request TSH (71725)Indication: Cold feeling On: :31 Request PARATHORMONE (80466)Indication: Chronic kidney disease, stage 3 On: :18 Request Comments: copy to Dr. Santana [phone] CALCIFIDIOL (64138) VIT D 25Indication: Chronic kidney disease, stage 3 On: :16 Request Comments: copy to Dr. Santana [phone] MAGNESIUM (60686)Indication: Chronic kidney disease, stage 3 On: :15 Request Comments: copy to Dr. Santana [phone] PROTEIN/CREAT RATIO, URINE (74986)Indication: Chronic kidney disease, stage 3 On: :15 Request Comments: copy to Dr. Santana [phone] LIPID PANEL (90870)Indication: Mixed hyperlipidemia On: :21 Request CBC with auto diff (95994)Indication: Diabetes mellitus type II, controlled On: 29-Rbw-887409:20 Request METABOLIC PANEL, COMPREHENSIVE (02439)Indication: Diabetes mellitus type II, controlled On: 13-Yqs-822770:20 Request HGB A1C (91334)Indication: Diabetes mellitus type II, controlled On: 28-Thy-585186:10 Request Vitamin D Hydroxy (72564)Indication: Osteopenia On: :08 Request TSH (THYROID STIMULATING HORMONE) (28456)Indication: Depression On: 04-Llk-122306:06 Request LIPID PANEL (81933)Indication: Other and unspecified hyperlipidemia On: :06 Request CBC with auto diff (58779)Indication: Diabetes mellitus type II, controlled On: 47-Twu-552606:06 Request METABOLIC PANEL, COMPREHENSIVE (68748)Indication: Diabetes mellitus type II, controlled On: 80-Zui-562264:06 Request CREATININE CLEARANCE (98706)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 On: 4-Okh-388314:38 Request Total Protein,24 Hour Urine (13812)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 On: 7-Van-919482:38 Request CBC W/AUTO DIFF WBC (88454)Indication: Diabetes mellitus type II, controlled On: 45-Zoh-051728:11 Request HgA1C , Office (68540)Indication: Diabetes mellitus type II, controlled On: 54-Sef-743077:23 Request CULTURE, SPUTUM (12231)Indication: Cough On: 99-Uiw-385506:47 Request HEPATIC FUNCTION PANEL (18557)Indication: Elevated LFTs On: 17-Vmg-80011:24 Request CREATININE CLEARANCE (16138)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 On: :33 Request 24 hour urine for Protein (52130)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 On: :33 Request CBC WITH MANUAL DIFF (63493)Indication: Diabetes mellitus type II, controlled On: :29 Request METABOLIC PANEL, COMPREHENSIVE (85219)Indication: Diabetes mellitus type II, controlled On: 75-Wbb-532399:29 Request LIPID PANEL (45476)Indication: Mixed hyperlipidemia On: :29 Request CREATININE CLEARANCE (56358)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 On: 5-Obp-719450:45 Request 24 hour urine for Protein (89344)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 On: 4-Qrp-995171:45 Request CREATININE CLEARANCE (30554)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 On: 35-Duu-743418:57 Request 24 hour urine for Protein (53829)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 On: 85-Stl-374436:57 Request METABOLIC PANEL, COMPREHENSIVE (94134)Indication: Hypertension, benign On: :32 Request LIPID PANEL (12104)Indication: Mixed hyperlipidemia On: :32 Request C-REACTIVE PROTEIN (23040)Indication: Fatigue On: :24 Request SED RATE ERYTHROCYTE (54478)Indication: Headache On: :24 Request VITAMIN B-12 (CYANOCOBALAMIN) (00468)Indication: Fatigue On: :24 Request LIPID PANEL (28789)Indication: Mixed hyperlipidemia On: :41 Request CBC WITH MANUAL DIFF (83205)Indication: Hypertension, benign On: :41 Request METABOLIC PANEL, COMPREHENSIVE (75287)Indication: Hypertension, benign On: :41 Request CREATININE CLEARANCE (47463)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 On: :34 Request 24 hour urine for Protein (91933)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 On: :34 Request LIPID PANEL (18774)Indication: Mixed hyperlipidemia On: 6-Iwi-903117:22 Request HEPATIC FUNCTION PANEL (63938)Indication: Mixed hyperlipidemia On: :22 Request Vitamin D Hydroxy (90950)Indication: Hypercalcemia On: 0-Bcs-597000:22 Request PHOSPHORUS (89942)Indication: Hypercalcemia On: 9-Fru-253780:22 Request PARATHORMONE (06600)Indication: Hypercalcemia On: :22 Request METABOLIC PANEL, COMPREHENSIVE (51969)Indication: Hypercalcemia On: 8-Paa-034640:22 Request CBC WITH MANUAL DIFF (50243)Indication: fsgs On: :58 Request LIPID PANEL (26819)Indication: Mixed hyperlipidemia On: 8-Uqv-657707:58 Request METABOLIC PANEL, COMPREHENSIVE (29005)Indication: Hypertension, benign On: 5-Dan-557196:58 Request Blood Glucose , Office (74587)Indication: Diabetes mellitus type II, controlled On: 9-Oyr-438234:10 Request TSH (21080)Indication: Diabetes mellitus type II, controlled On: 00-Abn-943797:51 Request METABOLIC PANEL, COMPREHENSIVE (21215)Indication: Diabetes mellitus type II, controlled On: 71-Sap-527867:51 Request CBC WITH MANUAL DIFF (62805)Indication: Diabetes mellitus type II, controlled On: 74-Svu-536262:51 Request MICROALBUMIN: CREATININE RATIO (02672) AND (14774)Indication: Diabetes mellitus type II, controlled On: 42-Hwl-505839:51 Request HEPATIC FUNCTION PANEL (95429)Indication: Other and unspecified hyperlipidemia On: :51 Request LIPID PANEL (37185)Indication: Other and unspecified hyperlipidemia On: :51 Request HgA1C , Office (41439)Indication: Diabetes mellitus type II, controlled On: :37 Request Blood Glucose , Office (90876)Indication: Diabetes mellitus type II, controlled On: :37 Request Planned Encounters Medical; [facility] 3 Month FU - On: 22-Mar-2018 11:00 [facility] Fast DO, Chaparrita A Fast DO, Chaparrita A Planned Procedures DRAIN/INJECT MAJOR JOINT OR BURSA On: 07-Feb-2018 Intent ()By: Keri Singh MD Comments: lot no [id number] exp date 2017-12-26 DRAIN/INJECT MAJOR JOINT OR BURSA On: 31-Jan-2018 Intent ()By: Keri Singh MD Comments: Lot#[id number]:8-77-92Ziqch:intra articular Site given:left knee Given By: Dr. Singh ABN signed DRAIN/INJECT MAJOR JOINT OR BURSA On: 24-Jan-2018 Intent ()By: Keri Singh MD Comments: Lot#[id number]: 8-59-48Kgltr:intra artciular Site given:left knee Given By: Dr. Singh ABN signed Euflexxa Echo CompleteBy: Fast DO, Chaparrita A On: 16-Dec-2017 Intent Fast DO, Chaparrita A Flu Vaccine (Quadrivalent) 15241Wt: On: 16-Dec-2017 Intent Fast DO, Chaparrita A Fast DO, Chaparrita A Comments: Lot: [id number]: 10/01/18Site: L dltd, IMDose prefilled syringegiven by: Jamie reviewed and ABN signed Kenalog Injection, 10 mgm On: 03-Oct-2017 Intent (J3301)By: Keri Singh MD Comments: lot: [id number]: 11/20site/route: L knee Cartoid DopplerBy: Fast DO, Chaparrita A On: 12-Sep-2017 Intent Fast DO, Chaparrita A Comments: november DIGITAL TOMOSYNTHESIS OF On: 12-Sep-2017 Intent BREAST (65010)By: Ambrocio WOLFF Chaparrita A Comments: due november 02 Ambrocio WOLFF Chaparrita A Kenalog Injection, 10 mgm On: 06-Jun-2017 Intent (J3301)By: Keri Singh MD Comments: bupivacacine 0.5% [id number] exp 09-20 kenalog 40 mg injected in. QCP3933 07-21 MRI OF BRAIN WITH AND WITHOUT On: 06-Jun-2017 Intent CONTRAST (88038)By: Case Albrecht DOa A Fast DO, Chaparrita A ELECTROCARDIOGRAM, COMPLETE (ECG) On: 06-Jun-2017 Intent (83428)By: Ambrocio WOLFF Chaparrita A Fast Comments: ekg [...] 10-May-2017 Intent 1000 CC (Special Coverage Comments: lot:[id number]:IV left anticub dose:1000ml given by:eliazar Araya LPN Instructions Apply. See MCM: 2048) (J7030)By: Case Albrecht DOa A Abmrocio DO, Chaparrita A Radiology - Chest- PA and LatBy: On: 05-May-2017 Intent Keri Singh MD Aerosol Treatment (79930)By: On: 05-May-2017 Intent Keri Singh MD Radiology - ChestBy: Francisco MANN, On: 05-May-2017 Intent Keri Alonzo Comments: call wet read DRAIN/INJECT MAJOR JOINT OR BURSA On: 28-Feb-2017 Intent (22680)By: Keri Singh MD Comments: 1 cc Kenelog #[id number] cc Marcaine #[id number] Kenalog Injection, 10 mgm On: 28-Feb-2017 Intent (J3301)By: Keri Singh MD ELECTROCARDIOGRAM, COMPLETE (ECG) On: 10-Jan-2017 Intent (58848)By: Chaparrita Albrecht DO Comments: ekg showed normal sinus rhythym, normal axis, no acute st/t wave changes Chaparrita WOLFF Flu Vaccine (Quadrivalent) 32299Sd: On: 27-Dec-2016 Intent SHONDA Andrade DRAIN/INJECT MAJOR JOINT OR BURSA On: 20-Aug-2016 Intent ()By: Keri Singh MD DRAIN/INJECT MAJOR JOINT OR BURSA On: 13-Aug-2016 Intent ()By: SHONDA Andrade Comments: lot: [id number]:intra articular dose:2ml given by:Dr. Francisco HUMPHREY signedER, [employer]NAGER injection #3 DOPPLER ULTRASOUND OF RIGHT CAROTID On: 10-Aug-2016 Intent ARTERY (74598)By: Ambrocio WOLFF Chaparrita A Comments: end october Ambrocio DO Chaparrita A DEXA SCAN AXIAL SKELETON (50266)By: On: 10-Aug-2016 Intent Case Albrecht DOa A Fast DO, Chaparrita A Comments: end of october SCREENING DIGITAL TOMOSYNTHESIS OF On: 10-Aug-2016 Intent BREAST (40893)By: Case Albrecht DOa A Comments: end of october Fast , Chaparrita A DRAIN/INJECT MAJOR JOINT OR BURSA On: 06-Aug-2016 Intent ()By: Keri Singh MD DRAIN/INJECT INTERMED JOINT/BURSA On: 06-Aug-2016 Intent ()By: SHONDA Andrade Comments: lot:[id number]:left knee dose:2mlgiven by:Dr. 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 DRAIN/INJECT INTERMED JOINT/BURSA On: 30-Jul-2016 Intent ()By: Keri Singh MD Comments: lot:[id number]:intra articular left knee dose: 2ml given by: Dr. Francisco HUMPHREY signedER, [employer] MANAGER injection #1 Radiology - Knee - LeftBy: Fast DO, On: 26-May-2016 Intent Chaparrita A Fast DO, Chaparrita A Flu Vaccine (Quadrivalent) 90397Ec: On: 27-Jan-2016 Intent Fast DO, Chaparrita A Fast DO, Chaparrita A Comments: Lot #:[id number] date:10/01/16mount given:0.5mlRoute: IMSite given: left deltoidGiven by: CARMELINA Hook ADMINISTRATION OF INFLUENZA VIRUS On: 27-Jan-2016 Intent VACCINE (G0008)By: Fast DO, Chaparrita A Fast DO, Chaparrita A DOPPLER ULTRASOUND OF RIGHT CAROTID On: 22-Oct-2015 Intent ARTERY (11379)By: Fast DO, Chaparrita A Fast DO, Chaparrita A MAMMOGRAM, SCREENING, BOTH BREAST On: 22-Oct-2015 Intent (41415)By: Fast DO, Chaparrita A Fast DO, Chaparrita A Ultrasound - RenalBy: Fast DO, On: 14-Jul-2015 Intent Chaparrita A Fast DO, Chaparrita A Radiology - Knee - Left - Weight On: 11-Mar-2015 Intent BearingBy: Fast DO, Chaparrita A Fast DO, Chaparrita A Radiology - Knee - Right - Weight On: 11-Mar-2015 Intent BearingBy: Fast DO, Chaparirta A Fast DO, Chaparrita A Flu Vaccine (Quadrivalent) 05583Hg: On: 11-Feb-2015 Intent Fast DO, Chaparrita A Fast DO, Chaparrita A EKG (13321)By: Fast DO, Chaparrita A On: 05-Nov-2014 Intent Fast DO, Chaparrita A Comments: ekg showed normal sinus rhythym, normal axis, no acute st/t wave changes left axis DRAIN/INJECT SMALL JOINT OR BURSA On: 07-Oct-2014 Intent ()By: Keri Singh MD MAMMOGRAM, SCREENING, BOTH BREAST On: 02-Aug-2014 Intent (93538)By: Fast DO, Chaparrita A Fast Comments: meera DO, Chaparrita A Cartoid DopplerBy: Fast DO, Chaparrita A On: 02-Aug-2014 Intent Fast DO, Chaparrita A DEXA SCAN AXIAL SKELETON (38023)By: On: 09-Apr-2014 Intent Fast DO, Chaparrita A Fast DO, Chaparrita A Prevnar 13 (14043)By: Ambrocio DO, On: 30-Jan-2014 Intent Chaparrita A Fast DO, Chaparrita A Comments: Lot:[id number]:05/20Dose:0.5Route:imSite:l armGiven By:Jarred signed FLU VAC, SPLIT, >3 YEARS, INTRAMUSC On: 16-Jan-2014 Intent (90871)By: Case Albrecht DOa A Ambrocio Comments: Lot #:[id number] date:12/2015Amount given:0.5mlRoute: IMSite given: left deltoidGiven by: CARMELINA Hook DO, Chaparrita A ADMINISTRATION OF INFLUENZA VIRUS On: 16-Jan-2014 Intent VACCINE (G0008)By: Ambrocio DO, Chaparrita A Fast DO, Chaparrita A EKG (26081)By: Fast DO, Chaparrita A On: 17-Oct-2013 Intent Fast DO, Chaparrita A Comments: ekg showed normal sinus rhythym, left axis, no acute st/t wave changes Radiology - Chest- PA and LatBy: On: 17-Sep-2013 Intent Fast DO, Chaparrita A Fast DO, Chaparrita A Aerosol Treatment (30889)By: Ambrocio On: 17-Sep-2013 Intent DO, Chaparrita A Fast DO, Chaparrita A MRI - BrainBy: Fast DO, Chaparrita A On: 22-Jul-2013 Intent Fast DO, Chaparrita A Cartoid DopplerBy: Fast DO, Chaparrita A On: 20-Jul-2013 Intent Fast DO, Chaparrita A MAMMOGRAM, SCREENING, BOTH BREASTS On: 20-Jul-2013 Intent (91888)By: Fast DO, Chaparrita A Fast DO, Chaparrita A Eprescribed prescriptions On: 20-Jul-2013 Intent (G8553)By: Fast DO, Chaparrita A Fast DO, Chaparrita A Eprescribed prescriptions On: 02-Feb-2013 Intent (G8553)By: Марина Concepcion FLU VAC, SPLIT, >3 YEARS, INTRAMUSC On: 03-Jan-2013 Intent (61956)By: Марина Concepcion Comments: Lot #:[id number] date:mount given:0.5mlRoute: IMSite given: L dltdVIS and ABN signedGiven by: CARMELINA Hook ADMINISTRATION OF INFLUENZA VIRUS On: 03-Jan-2013 Intent VACCINE (G0008)By: Марина Concepcion CT - Abdomen & Pelvis (IV Contrast On: 17-Oct-2012 Intent Needed)By: Chaparrita Albrecht DO A Ambrocio Comments: patient will be calling to set up DO, Chaparrita A Eprescribed prescriptions On: 10-Oct-2012 Intent (G8553)By: Марина Concepcion Ear Irrigation (91989)By: [place], On: 13-Jun-2012 Intent Ivy Comments: Ear Irrigation performed on: right earAmount/color removed cerumen: light brown, small amount removedOUtcome:Pt toleratedUsed wax curettes Wax Currettes (01709)By: Rome, On: 13-Jun-2012 Intent Ivy PNEUM VAC ADLT/IMUMNOSPR, SBC/INTRM On: 13-Jun-2012 Intent (84321)By: Chaparrita Albrecht DO Comments: Lot:[id number]:09/09/13Dose:0.5mLRoute:IMSite:L armGiven By:BHUMI signed DO, Chaparrita A EKG (21854)By: Case Albrecht DOa A On: 13-Jun-2012 Intent [...] MAMMOGRAM, SCREENING, BOTH BREASTS On: 28-Dec-2011 Intent (38540)By: Ambrocio WOLFF Chaparrita A Ambrocio DO, Chaparrita A DXA, BONE DENSITY, AXIAL SKELETON On: 28-Dec-2011 Intent (96548)By: Ambrocio WOLFF Chaparrita A Fast DO, Chaparrita [...] SPLIT, >3 YEARS, INTRAMUSC On: 28-Dec-2011 Intent (66350)By: Марина Concepcion Comments: Lot #:[id number] date:mount given:0.5mlRoute: IMSite given: left deltoidGiven by: CARMELINA Hook ADMINISTRATION OF INFLUENZA VIRUS On: 28-Dec-2011 Intent VACCINE (G0008)By: Марина Concepcion Aerosol Treatment (39760)By: Ciesa On: 30-Nov-[address] - Abdomen & PelvisBy: Fast DO, On: 21-Sep-2011 Intent Chaparrita A Fast DO, Chaparrita A Comments: with special cuts through the kidney- october EKG (15887)By: Марина Concepcion On: 15-Jun-2011 Intent Comments: ekg [...] Comments: Call results to Dr. Albrecht @ [phone] as soon as resulted please. DO, Chaparrita A Eprescribed prescriptions On: 11-Jan-2011 Intent (G8553)By: Fast DO, Chaparrita A Fast DO, Chaparrita A MAMMOGRAM, SCREENING, BOTH BREASTS On: 11-Jan-2011 Intent (63576)By: Ambrocio DO, Chaparrita A Fast DO, Chaparrita A CT - Sinuses CompleteBy: Fast DO, On: 11-Jan-2011 Intent Chaparrita A Fast DO, Chaparrita A Cartoid DopplerBy: Fast DO, Chaparrita A On: 11-Jan-2011 Intent Fast DO, Chaparrita A ADMINISTRATION OF INFLUENZA VIRUS On: 11-Jan-2011 Intent VACCINE (G0008)By: Марина Concepcion FLU VAC, SPLIT, >3 YEARS, INTRAMUSC On: 11-Jan-2011 Intent (09328)By: Марина Concepcion Eprescribed prescriptions On: 12-Oct-2010 Intent (G8553)By: Ambrocio WOLFF, Chaparrita A Fast DO, Chaparrita A Renal DopplerBy: Fast DO, Chaparrita A On: 12-Oct-2010 Intent Fast DO, Chaparrita A Cartoid DopplerBy: Fast DO, Chaparrita A On: 12-Oct-2010 Intent Fast DO, Chaparrita A Comments: sept TDAP VACCINE >7 IM (19318)By: On: 13-May-2010 Intent Helena Tineo LPN Comments: Lot #[id number]-2/25/13Site-left deltoidgiven by:[facility] EKG (66262)By: Марина Concepcion On: 13-May-2010 Intent Comments: ekg showed normal sinus rhythym, normal axis, no acute st/t wave changes Aerosol Treatment (28123)By: Charlene On: 22-Dec-2009 Intent Johanna SANZ Cartoid DopplerBy: Fast DO, Chaparrita A On: 01-Dec-2009 Intent Fast DO, Chaparrita A MAMMOGRAM, SCREENING, BOTH BREASTS On: 01-Dec-2009 Intent (62405)By: Fast DO, Chaparrita A Fast DO, Chaparrita A DXA, BONE DENSITY, AXIAL SKELETON On: 01-Dec-2009 Intent (44993)By: Fast DO, Chaparrita A Fast DO, Chaparrita A Ultrasound - SpleenBy: Fast DO, On: 17-Jun-2009 Intent Chaparrita A Fast DO, Chaparrita A EKG (67338)By: Марина Concepcion On: 10-Mar-2009 Intent Comments: ekg showed normal sinus rhythym, normal axis, no acute st/t wave changes FLU VAC, SPLIT, >3 YEARS, INTRAMUSC On: 09-Jan-2009 Intent ([id number])By: Stacy Jorge Comments: Lot #[id number]-left deltoidDose0.5mlgiven by Marycarmen Jorge LPN ADMINISTRATION OF INFLUENZA VIRUS On: 09-Jan-2009 Intent VACCINE ([id number])By: Stacy Jorge MAMMOGRAM, SCREENING, BOTH BREASTS On: 04-Dec-2008 Intent ([id number])By: Fast DO, Chaparrita A Fast DO, Chaparrita A MAMMOGRAM, SCREENING, BOTH BREASTS On: 03-Sep-2008 Intent ([id number])By: Fast DO, Chaparrita A Fast DO, Chaparrita A FLU VAC, SPLIT, >3 YEARS, INTRAMUSC On: 16-Jan-2008 Intent ([id number])By: Janet Scherer RN Comments: Lot #: [id number] date: 09/10Amount given: 0.5 mlRoute: IMSite given: Left deltoidGiven by: Olivia Bell LPN ADMINISTRATION OF INFLUENZA VIRUS On: 16-Jan-2008 Intent VACCINE ([id number])By: Janet Scherer RN EKG ([id number])By: Fast DO, Chaparrita A On: 29-Aug-2007 Intent Fast DO, Chaparrita A Comments: done km ADMINISTRATION OF PNEUMOCOCCAL On: 29-Aug-2007 Intent VACCINE ([id number])By: Fast DO, Chaparrita A Fast DO, Chaparrita A PNEUM VAC ADLT/IMUMNOSPR, SBC/INTRM On: 29-Aug-2007 Intent ([id number])By: Fast DO, Chaparrita A Fast Comments: 0.5cc given im lt arm [id number] exp 02-13-08 DO, Chaparrita A DXA, BONE DENSITY, AXIAL SKELETON On: 29-Aug-2007 Intent ([id number])By: Fast DO, Chaparrita A Fast DO, Chaparrita A MAMMOGRAM, SCREENING, BOTH BREASTS On: 29-Aug-2007 Intent ([id number])By: Fast DO, Chaparrita A Fast DO, Chaparrita [...] new people and be involved in the [employer] 0 bps are good and sugar looking [...] medical issues: she has been working with [employer] and trying to work on that- she got rid of respiratory infection but was sick for weeks and was on pred so her sugar up and chol up a bit- trying to add protein shakes drink more water- she is starting back at [facility]- diarrhea resolved- we did talk about [...] that she had episode where went to [facility] and she couldnt remember where she was- and happened one other time where she didnt recognize the roads- sister had alzheimer s- weight down because was sick- but coming back up- she hasnt done counseling with hospice has been thru before- she lonely- not necessarily unhappy- she doing self help 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 [facility]: [facility]. The medical issues the patient [...] visual acuity (yearly). Note for Physical exam: [facility] Wellness Physical- Talk about trying [...] Meningioma (Renamed from 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, 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, 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)) [facility] Visit [...] Meningioma (Renamed from 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, 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, 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)), Diabetes, Type II, controlled (250.00), [...] Meningioma (Renamed from 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, 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, 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)), Colon Polyp [facility] [...] Meningioma (Renamed from 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, 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, 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)), OCCLUSION AND STENOSIS OF CAROTID [...] Meningioma (Renamed from 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, 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, 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)), Chronic glomerulonephritis with lesion of [...] Meningioma (Renamed from 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, 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, 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)), Other and unspecified hyperlipidemia (272.4), [...] Meningioma (Renamed from 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, 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, 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)) [facility] Visit [...] Meningioma (Renamed from 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, 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, 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)), Gerd (530.81), Hyperlipidemia, Unspecified (272.4), [...] Meningioma (Renamed from 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, 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, 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)), Hypertension,benign(401.1), OCCLUSION AND STENOSIS OF [...] Meningioma (Renamed from 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, 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, 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)), Diabetes, Type II, controlled (250.00), [...] Meningioma (Renamed from 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, 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, 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)), Hypertension,benign(401.1), Osteopenia (733.90), Depression (311.), [...] weight down 23 pounds- and trying joined [facility]- she feels well - she increased celexa [...] Meningioma (Renamed from 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, 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, 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)), Chronic glomerulonephritis with lesion of [...] Meningioma (Renamed from 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, 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, 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)) End: 26-Jan-2011 16:53 [facility] Office Visit On: 19-Jan-2011 14:30 Encounter Diagnosis: brain tumor End: 21-Sep-2011 8:09 [facility] Phone Encounter On: 19-Jan-2011 13:41 Encounter Diagnosis: 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, 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, 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
--- OUTSIDE RECORDS SUMMARY | 2018-06-25 22:00 | XMS RPT_ITS | Continuity of Care Document ---
:1940 Author Organization [facility] Address [address] [place] [address] Phone Care Team Providers Name Role Phone [...] Knee pain, unspecified laterality (719.46) Comments: Valorie:lot: [id number]: 09/20site/route: L knee Status: Active Leg pain, [...] days Quantity: 30 {Tablet} Refills: 3 Ordered:04-May-2016 SHNODA Andrade Start : 27-Jan-2016 End : 04-May-2016 [...] spray daily for 0 days Quantity: 1 {[place]} Refills: 0 Ordered:04-May-2016 SHONDA Andrade Start : [...] and dispense 8 ounes TOTAL mixed solutionCal [id number] if questions SPECTAZOLE, 1% (External Cream) 1 [...] End : 11-Feb-2015 Discontinued Comments:th[age], called to [facility] 08-30-14 [facility] Allergies and Adverse Reactions Name Dates [...] Meningioma (Renamed from 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, 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, BRAIN/HR SYSTEMS ANALYST NEC) (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 2016 right Cholecystectomy Completed lumbar wykkxn==5075 Completed Tonsillectomy Completed Date Value Details 19-Dec-2017 Echocardiogram Complete Result: Comments: See Note; NOTES: [facility] Cardiovascular Services [address] [place] [address] Echo Complete 12/19/17 0800 MR#: [id number] Acct: [id number] Name: CLARENCE ALBERT ep #: [id number] : 1940 77 From: Chuckie Cormier MD Attending Dr: Chaparrita Albrecht DO Status: REG CLI Ordering Dr: Chaparrita Albrecht DO Date: 12/19/17 Location: [facility] Sex: F C Admitted: Reason For [...] Dictated: 12/19/17 0800 Date Transcribed: 12/19/17 1022 Manager Group: Signed 07-Dec-2017 Carotid Duplex Ultrasound Result: Comments: See Note; NOTES: [facility] Cardiovascular Services [address] [place] [address] Carotid Duplex Ultrasound 12/06/17 0901 MR#: [id number] Acct: [id number] Name: CLARENCE WHITTINGTON Rep #: [id number] : 1940 77 From: Anurag Loya MD [...] the left vertebral artery. Procedure Carotid Duplex 01990. Exam performed in department. Interpretation Summary Mild (<50%) stenosis right extracranial internal carotid. Mild (<50%) stenosis left extracranial internal carotid. Flow within the vertebral arteries is antegrade bilaterally. __ __ Ordering Physician: Chaparrita Albrecht Performed By: Margot Benton RVT and Student 12/07/17 0809 Date Anurag Loya MD CC: Chaparrita Albrecht DO Date Dictated: 12/06/17900 Date Transcribed: 12/07/17808 Manager Group: Signed 06-Dec-2017 SCREENING MAMM (CAD), BILAT Result: Comments: See Note; NOTES: [facility] Imaging Services [address] [place] [address] SCREENING MAMM (CAD), BILAT MR#: [id number] Acct: [id number] Name: CLARENCE ALBERT Rep #: [id number] : 1940 F 77 From: Misael Hebert MD PCP: Chaparrita Albrecht DO Status: REG CLI Study: SCREENING MAMM (CAD), BILAT Date of Exam: 12/06/17 Exam# [id number] Ordering Dr: Chaparrita Albrecht DO MAMM OGRAPHY [...] delay biopsy of a clinically suspicious abnormality. [id number] Electronically Signed: Misael Hebert MD at 15:31 EDT Tel [phone], Se rvice support , CC: Chaparrita Albrecht DO Manager Group: Signed 10-Jun-2017 Brain W/WO Contrast Result: Comments: See Note; NOTES: [facility] Imaging Services [address] [place] [address] Brain W/WO Contrast MR#: [id number] Acct: [id number] Name: CLARENCE ALBERT Rep #: [id number] : 1940 F 77 From: Laya Montilla MD PCP: Chaparrita Albrecht DO Status: REG CLI Study: Brain W/WO Contrast Date of Exam: 06/10/17 Exam# [id number] Ordering Dr: Chaparrita Albrecht DO STUDY: MRI [...] Service support , CC: Chaparrita Albrecht DO Manager Group: Signed 05-May-2017 Chest PA and Lateral Result: Comments: See Note; NOTES: [facility] Imaging Services [address] [place] [address] Chest PA and Lateral MR#: [id number] Acct: [id number] Name: CLARENCE ALBERT Rep #: [id number] : 1940 F 77 From: Edwar Patino MD PCP: Chaparrita Albrecht DO Status: REG CLI Study: Chest PA and Lateral Date of Exam: 05/05/17 Exam# [id number] Ordering Dr: Keri Singh MD STUDY: X-RAY [...] CC: Keri Singh MD; Chaparrita Albrecht DO Manager Group: Signed 02-Nov-2016 Dexa Bone Density Study (HP) Result: Comments: See Note; NOTES: [facility] Imaging Services [address] [place] [address] Verdana 4d Dexa Bone Density Study (HP) MR#: [id number] Acct: [id number] Name: LYNNE ALBERT Rep #: [id number] : 1940 F 76 From: Misael Hebert MD PCP: Chaparrita Albrecht DO Status: REG CLI Study: Dexa Bone Density Study (HP) Date of Exam: 11/02/16 Exam# [id number] Ordering Dr: Laura DO STUDY: DUAL ENERGY [...] Misael Hebert MD at 11:02 EDT Tel [phone], Service support , CC: Chaparrita Albrecht DO Manager Group: Signed 02-Nov-2016 SCREENING MAMM (CAD), BILAT Result: Comments: See Note; NOTES: [facility] Imaging Services [address] [place] [address] Verdana 4d SCREENING MAMM (CAD), BILAT MR#: [id number] Acct: [id number] Name: CLARENCE ALBERT Rep #: [id number] : 1940 F 76 From: Misael Hebert MD PCP: Chaparrita Albrecht DO Status: [facility] CLI Study: SCREENING MAMM (CAD), BILAT Date of Exam: 11/02/16 Exam# [id number] Ordering Dr: Case Albrecht DO MAMMOGRAPHY - [...] delay biopsy of a clinically suspicious abnormality. [id number] Electronically Signed: Misael Hebert MD at 12:44 EDT Tel [phone], Service support , CC: Chaparrita Albrecht DO Manager Group: Signed 05-Aug-2016 Venous Duplex Lower Extremity Result: Comments: See Note; NOTES: [facility] Cardiovascular Services [address] [address] Venous Duplex US, Unilateral 08/05/16 1053 MR#: [id number] Acct: [id number] Name: CLARENCE WEI Rep #: [id number] : 1940 76 From: Elvin Natarajan MD [...] Dictated: 08/05/16 1053 Date Transcribed: 08/05/16 1127 Manager Group: Signed 27-May-2016 Knee 4 or More Views Result: Comments: See Note; NOTES: [facility] Imaging Services [address] [place] [address] Verdana 4d Knee 4 or More Views MR#: [id number] Acct: [id number] Name: CLARENCE ALBERT Rep #: [id number] : 1940 F 76 From: Misael Hebert MD PCP: Chaparrita Albrecht DO Status: REG CLI Study: Knee 4 or More Views Date of Exam: 05/27/16 Exam# [id number] Ordering Dr: Kylah Linda UDY: X-RAY - [...] MD at 10:41 EST , Service support [phone], CC: Chaparrita Albrecht DO; Kylah Linda DO Manager Group: Signed 13-May-2016 Sinus/Facial Bone Result: Comments: See Note; NOTES: [facility] Imaging Services [address] [place] [address] Verdana 4d Sinus/Facial Bone MR#: [id number] Acct: [id number] Name: CLARENCE ALBERT Rep #: [id number] : 1940 F 76 From: Godwin Winter MD PCP: Chaparrita Albrecht DO Status: REG CLI Study: Sinus/Facial Bone Date of Exam: 05/13/16 Exam# [id number] Ordering Dr: Alejandro Silverman MD STUDY: CT [...] MD at 7:35 EST , Service support [phone], CC: Chaparrita Albrecht DO; Alejandro Silverman MD Manager Group: Signed 21-Apr-2016 Emergency Department Summary Result: Comments: See Note; NOTES: [facility] Medical Records Department [address] [place] [address] Emergency Department Summary MR#: [id number] Acct: [id number] Name: CLARENCE ALBERT Rep #: [id number] : 1940 76 From: Carissa Murphy MD [...] epistaxis. CARISSA MURPHY MD T: NTS JOB: [id number] 04/21/1606 <Electronically signed by Carissa Murphy MD> Date Carissa donovan MD Cosigner Signature (If Indicated): Date CC: Chaparrita Albrecht DO Date Dictated: 04/20/161711 Date Transcribed: 04/20/161711 Manager Group: Signed 20-Apr-2016 Discharge Instruction Result: Comments: See Note; NOTES: [facility] Medical Records Department [facility] [place] [address] Discharge Instruction 04/20/16 1303 MR#: [id number] Acct: [id number] Name: CLARENCE ALBERT Rep #: [id number] : 1940 76 From: Carissa Murphy MD [...] your Primary Care Provider. Call [facility] ([phone]) or report to the closest Emergency Room. Call 911 if necessary. 04/20/16 1645 <Electronically signed by Carissa Murphy MD> Date Carissa Murphy MD Cosigner Signature (If I ndicated): Date CC: Chaparrita Albrecht DO 02-Nov-2015 Carotid Duplex Ultrasound Result: Comments: See Note; NOTES: [facility] Cardiovascular Services [address] [place] [address] Carotid Duplex Ultrasound 10/30/15 1100 MR#: [id number] Acct: [id number] Name: CLARENCE ALBERT Rep #: [id number] : 1940 75 From: Elvin Natarajan MD [...] the left vertebral artery. Procedure Carotid Duplex 03789. The exam was diagnostic. Exam performed in [...] Dictated: 10/30/15 1100 Date Transcribed: 11/02/15 1143 Manager Group: Signed 30-Oct-2015 Bilat Scrn Digital AND CAD Result: Comments: See Note; NOTES: [facility] Imaging Services [address] [place] [address] Verdana 4d Bilat Scrn Digital AND CAD MR#: [id number] Acct: [id number] Name: CLARENCE ALBERT Rep #: [id number] : 1940 F 75 From: Andres Brady MD PCP: Chaparrita Albrecht DO Status: REG CLI Study: Bilat Scrn Digital AND CAD Date of Exam: 10/30/15 Exam# [id number] Ordering Dr: Chaparrita Albrecht DO MAMMOGRAPHY - [...] biop sy of a clinically suspicious abnormality. HR8310 Electronically Signed: Andres Brady MD at 17:48 EDT Tel , Service support [phone], CC: Chaparrita Albrecht DO Manager Group: Signed 30-Oct-2015 Saad Jaffe Digital AND CAD Result: Comments: See Note; NOTES: [facility] Imaging Services [address] [place] [address] Verdana 4d Billila Jaffe Digital AND CAD MR#: [id number] Acct: [id number] Name: CLARENCE ALBERT Rep #: [id number] : 1940 F 75 From: Andres Brady MD PCP: Chaparrita Albrecht DO Status: REG CLI Study: Saad Jaffe Digital AND CAD Date of Exam: 10/30/15 Exam# [id number] Ordering Dr: Chaparrita Albrecht DO MAMMOGRAPHY - [...] abnormalities are identified. CC: Chaparrita Albrecht DO Manager Group: Signed 22-Oct-2015 ELECTROCARDIOGRAM, COMPLETE (ECG) (88501) Comments: ekg showed normal sinus rhythym, normal axis, no acute st/t wave changes no change Result: [MEASUREMENTS ANALYSIS] Date of Test: 10/22/2015 14:41:29; Heart Rate: 71; OK Interval: 140; QRS: 94; QT Interval: 384; Corrected QT Interval (QTc): 403; P Wave [place]: 58; QRS Wave [place]: -3; T Wave [place]: 56; Blood Pressure: 128/76 [ECG DIAGNOSTIC STATEMENTS] Date of Test: 10/22/2015 14:41:29; Summary: Sinus Rhythm Low voltage -possible pulmonary disease. ABNORMAL 22-Jul-2015 Kidney and Bladder Result: Comments: See Note; NOTES: [facility] Imaging Services [address] [place] [address] Verdana 4d Kidney and Bladder MR#: [id number] Acct: [id number] Name: ALBERTYaniv Rep #: [id number] : 1940 F 75 From: Nir Sanchez MD PCP: Chaparrita Albrecht DO Status: REG CLI Study: Kidney and Bladder Date of Exam: 07/22/15 Exam# [id number] Ordering Dr: Chaparrita Albrecht DO STUDY: RENAL [...] at 4:59 EDT Tel , Service support [phone], CC: Chaparrita Albrecht DO Manager Group: Signed 11-Mar-2015 Knee 4 or More Views Result: Comments: See Note; NOTES: [facility] Imaging Services [address] [place] [address] Verdana 4d Knee 4 or More Views MR#: [id number] Acct: [id number] Name: CLARENCE ALBERT Rep #: [id number] : 1940 F 74 From: Trent Cameron DO PCP: Chaparrita Albrecht DO Status: REG CLI Study: Knee 4 or More Views Date of Exam: 03/11/15 Exam# [id number] Ordering Dr: Case Albrecht DO STUDY: X-RAY [...] at 7:45 EST Tel , Service support [phone], RAD/Knee 4 or More Views IMPRESSION: Degener ative changes within the knee. No acute fracture. Small suprapatellar effusion. Electronically Signed: Trent Cameron DO at 7:45 EST Tel , Service support [phone], CC: Chaparrita Albrecht DO Manager Group: Signed 11-Mar-2015 Knee 4 or More Views Result: Comments: See Note; NOTES: [facility] Imaging Services [address] [place] [address] Verdana 4d Knee 4 or More Views MR#: [id number] Acct: [id number] Name: CLARENCE ALBERT Rep #: [id number] : 1940 F 74 From: Trent Cameron DO PCP: Chaparrita Albrecht DO Status: REG CLI Study: Knee 4 or More Views Date of Exam: 03/11/15 Exam# [id number] Ordering Dr: Case Albrecht DO STUDY: X-RAY [...] at 7:46 EST Tel , Service support [phone], RAD/Knee 4 or More Views IMPRESSION: Mild degenerative changes. No acute bony abnormality. Electronically Signed: Trent Cameron DO at 7:46 EST Tel , Service support [phone], CC: Chaparrita Albrecht DO Manager Group: Signed 18-Oct-2014 Carotid Duplex Ultrasound Result: Comments: See Note; NOTES: [facility] Cardiovascular Services [address] [place] [address] Carotid Duplex Ultrasound 10/18/14 1331 MR#: [id number] Acct: [id number] Na me: CLARENCE ALBERT Rep #: [id number] : 1940 74 From: Elvin Natarajan MD [...] the left vertebral artery. Procedure Carotid Duplex 93821. The exam was diagnostic. Exam performed in [...] Dictated: 10/18/14 1331 Date Transcribed: 10/18/14 1616 Manager Group: Signed 18-Oct-2014 Bilat Scrn Digital AND CAD Result: Comments: See Note; NOTES: [facility] Imaging Services [address] [place] [address] Breast Imaging Report MR#: [id number] Acct: [id number] Name: CLARENCE ALBERT Rep #: [id number] : 1940 F 74 From: Misael Hebert MD PCP: Chaparrita Albrecht DO Status: REG CLI Study: Saad Scrn Digital AND CAD Date of Exam: 10/18/14 Exam# [id number] Ordering Dr: Chaparrita Albrecht DO MAMMOGRAPHY - [...] Misael redmond MD at 13:44 EDT Tel [phone], Service support [phone], CC: Chaparrita Albrecht DO Manager Group: Signed 09-Jul-2014 Dexa Bone Density Study (HP) Result: Comments: See Note; NOTES: [facility] Imaging Services [address] [place] [address] Bone Density Report MR#: [id number] Acct: [id number] Name: CLARENCE ALBERT Rep #: [id number] : 1940 F 74 From: Misael Hebert MD PCP: Chaparrita Albrecht DO Status: REG CLI Study: Dexa Bone Density Study (HP) Date of Exam: 07/09/14 Exam# [id number] Ordering Dr: Chaparrita Albrecht DO STUDY: DUAL [...] Angel Hebert MD at 14:55 EDT Tel [phone], Service support [phone], CC: Chaparrita Albrecht DO Manager Group: Signed 17-Sep-2013 Chest PA and Lateral Result: Comments: See Note; NOTES: [facility] Imaging Services [address] [place] [address] Radiology Report MR#: [id number] Acct: [id number] Name: CLARENCE ALBERT Rep #: [id number] : 1940 F 73 From: David Bennett MD PCP: Chaparrita Albrecht DO Status: REG CLI Study: Chest PA and Lateral Date of Exam: 09/17/13 Exam# [id number] Ordering Dr: Chaparrita Albrecht DO STUDY: X-RAY [...] MD at 20:44 EDT , Service support [phone], RAD/Chest PA and Lateral IMPRESSION: No focal infiltrate or edema. Electronic ally Signed: David Bennett MD at 20:44 EDT , Service support [phone], CC: Chaparrita Albrecht DO Manager Group: Signed 17-Sep-2013 Spirometry (55412) Result: 29-Aug-2013 Carotid Duplex Ultrasound Result: Comments: See Note; NOTES: [facility] Cardiovascular [address] [address] Carotid Duplex Ultrasound 08/24/13 0939 MR#: [id number] Acct: [id number] Chalo e: CLARENCE ALBERT Rep #: [id number] : 1940 73 From: Anurag Loya MD [...] in the left bulb. Procedure Carotid Duplex 06667. Exam perfor med in department. Interpretation Summary Mild (<50%) stenosis right extracranial internal carotid. Mild (<50%) stenosis left extracranial internal carotid. Flow within the vertebra l arteries is antegrade bilaterally. Ordering Physician: Chaparrita Albrecht Performed By: Kendal Benton RVT : Chaparrita Albrecht DO Date Dictated: 08/24/13 0939 Date Transcribed: 08/29/13 1118 Manager Group: Signed Immunization Name Dates Details Influenza (3 years and up) on: 16-Jan-2008 Comments: Lot #: [id number] date: 09/10Amount given: 0.5 mlRoute: IMSite given: Left deltoidGiven by: Olivia Bell LPN Influenza (3 years and up) on: 09-Jan-2009 Comments: Lot #[id number]-left deltoidDose0.5mlgiven by Marycarmen Jorge LPN Pneumococcal (2 years and up) on: 29-Aug-2007 Comments: 0.5cc given im lt arm [id number] exp 02-13-08 Family History Unknown Family Member [...] 0.00 cm Results Date Description Value Details 36-Rwa-688676:24 HgA1C , Office (13769) HgA1C , Office 6.5 % (Normal) Range: 4.6 - 7.1 :14 LIPID PANEL (69391) Comments: PATIENT WAS FASTINGPERFORMED BY: [facility] Ksonbh9497 [facility] [id number] LDL/HDL Ratio 1.1 {ratio} (Normal) Range: 0.0-3.2 [...] (Normal) Range: 100-199 :14 Vitamin D Hydroxy (41556) Comments: PATIENT WAS FASTINGPERFORMED BY: [employer] HospitalLyncof3001 [facility] [id number] Vitamin D, 25-Hydroxy 37.8 ng/mL (Normal) Range: 30.0-100.0 Comments: Vitamin D deficiency has been defined by the [place] of[facility] and an Endocrine Society practice guideline as alevel of serum 25-OH vitamin D less than 20 ng/mL (1,2).The Endocrine Society went on to further define vitamin Dinsufficiency as a level between 21 and 29 ng/mL (2).1. IOM ([place] of Medicine). 2010. Dietary reference intakes for calcium and D. [place]: The National AcademBarak ITC Press.2. Mira MF, Rosette LOPEZ, Tommy SWAIN, et al. Evaluation, treatment, and prevention of vitamin D deficiency: an Endocrine Society clinical practice guideline. JCEM. 2010; 96(7):1911-30. :14 CBC with auto diff (23525) Comments: PATIENT WAS FASTINGPERFORMED BY: [facility] Nytwsh6729 [facility] [id number] Immature Grans (Abs) 0.0 {x10E3/uL} (Normal) Range: [...] PANEL, COMPREHENSIVE Comments: PATIENT WAS FASTINGPERFORMED BY: [facility]University HospitalJyxcly6006 [facility] [id number] (01049) ALT (SGPT) 10 [iU]/L (Normal) Range: 0-32 [...] CREATININE RATIO Comments: PATIENT WAS FASTINGPERFORMED BY: [employer] HospitalYihfao3841 [facility] [id number] (47539) AND (26029) Alb/Creat Ratio 4213.3 {mg/g_creat} (Abnormal) Range: 0.0-30.0 Albumin, Urine 3206.3 ug/mL (Normal) Comments: Results confirmed ondilution. Creatinine, Urine 76.1 mg/dL (Normal) :40 CBC & PLATELETS (AUTO) (83301) Comments: please fax to Dr. Austin- [phone]; PATIENT WAS FASTINGPERFORMED BY: [employer] HospitalGrdjsf3226 [facility] [id number] Platelets 148 {x10E3/uL} (Abnormal) Range: 150-379 RDW [...] PANEL Comments: please fax to Dr. Austin- [phone]; PATIENT WAS FASTINGPERFORMED BY: [facility] [id number] Information: [id number],[id number] FX DR. SANTANA (71018) Albumin 3.1 g/dL (Abnormal) Range: 3.5-4.8 Phosphorus [...] 8-27 Glucose 133 mg/dL (Abnormal) Range: 65-99 81-Qht-38315:40 MAGNESIUM (07557) Comments: please fax to Dr. Austin- [phone]; PATIENT WAS FASTINGPERFORMED BY: [facility] Fwlwjk8621 [facility] [id number] Magnesium 1.9 mg/dL (Normal) Range: 1.6-2.3 78-Gbb-24577:40 CALCIFEDIOL (00468) Comments: please fax to Dr. Austin- [phone]; PATIENT WAS FASTINGPERFORMED BY: LabMROUniversity HospitalLucsvi3760 [facility] [id number] Vitamin D, 25-Hydroxy 29.4 ng/mL (Abnormal) Range: 30.0-100.0 Comments: Vitamin D deficiency has been defined by the [place] ofMedicine and an Endocrine Society practice guideline as alevel of serum 25-OH vitamin D less than 20 ng/mL (1,2).The Endocrine Society went on to further define vitamin Dinsufficiency as a level between 21 and 29 ng/mL (2).1. IOM ([place] of Medicine). 2010. Dietary reference intakes for calcium and D. [place]: The National Academies Press.2. Mira OLIVEIRA, Rosette LOPEZ, Tommy SWAIN, et al. Evaluation, treatment, and prevention of vitamin D deficiency: an Endocrine Society clinical practice guideline. JCEM. 2010; 96(7):1911-30. :40 PARATHORMONE (04895) Comments: please fax to Dr. Austin- [phone]; PATIENT WAS FASTINGPERFORMED BY: EVE [facility] Gwuzjx40[address] [place] [id number] PTH, Intact 22 pg/mL (Normal) Range: 15-65 :30 COLON BIOPSY (CHOOSE See Note (Normal) Comments: [facility] [address] [place], [address] SITE) Comments: Patient: CLARENCE ALBERT : 1940 (77/F) Acct Num: [id number] Phys: Marcus Caldera Unit Num: [id number] Loc: [facility] Specimen: [id number] Received: 09/16/171528 Spec Type: C OLON BX [...] one cassette. / Elsi 09/19/17 TC:1 CPT: 47679 x2 HEADER OPERATION: Colonoscopy PRE-OP DIAGNOSIS: History [...] PANEL, COMPREHENSIVE Comments: PATIENT NOT FASTINGPERFORMED BY: [facility]CoUniversity HospitalMgjytm9576 [facility] [id number] (54187) ALT (SGPT) 14 [iU]/L (Normal) Range: 0-32 [...] (Abnormal) Range: 65-99 :07 HgA1C , Office (13932) HgA1C , Office 7.2 % (Abnormal) Range: 4.6 - 7.1 :37 Clostridium difficile Toxin Comments: PATIENT NOT FASTINGPERFORMED BY: [facility]University HospitalZvxupk4113 [facility] [id number] A+B, EIA (28236) C difficile Toxins A+B, EIA Negative (Normal) :37 LEUKOCYTE COUNT, FECAL (33958) Comments: PATIENT NOT FASTINGPERFORMED BY: [facility] [id number] Result 1 NWBC (Normal) Comments: No white blood cells seen. White Blood Cells (WBC), Final report (Normal) Stool :37 OVA & PARASITE DIR SMEAR Comments: PATIENT NOT FASTINGPERFORMED BY: [facility] [id number] (19145) Result 1 NOCP (Normal) Comments: No ova, cysts, or parasites seen. Ova + Parasite Exam Final report (Normal) Comments: These results were obtained using wet preparation(s) and trichromestained smear. This test does not include testing for Cryptosporidiumparvum, Cyclospora, or Microsporidia. :37 SETH CULTURE-STOOL (66898) Comments: PATIENT NOT FASTINGPERFORMED BY: [facility] [id number] Information: SRC:ST SRC:ST E coli Shiga Toxin EIA Negative (Normal) Result 1 NCI (Normal) Comments: No Campylobacter species isolated. Campylobacter Culture Final report (Normal) Result 1 NSS (Normal) Comments: No Salmonella or Shigella recovered. Salmonella/Shigella Screen Final report (Normal) :06 Renal function Panel Comments: fax copy to Dr. Santana [phone]; A courtesy copy of this report has been sent [phone].PATIENT NOT FASTINGPERFORMED BY: [facility] [id number] Information: NURSE DRAW (98847) Albumin 3.5 g/dL (Normal) Range: 3.5-4.8 Phosphorus [...] copy of this report has been sent [phone].PATIENT NOT FASTINGPERFORMED BY: [employer] BioelectronicsVidant [facility] [id number] :02 Range: 15-65 Vitamin D, 25-Hydroxy 34.7 ng/mL (Normal) Comments: A courtesy copy of this report has been sent [phone].PATIENT NOT FASTINGPERFORMED BY: [employer]70 [facility]sVid[facility] Hospital [id number] :02 Range: 30.0-100.0 Comments: Vitamin D deficiency has been defined by the [place] ofMedicine and an Endocrine Society practice guideline as alevel of serum 25-OH vitamin D less than 20 ng/mL (1,2).The Endocrine Society went on to further define vitamin Dinsufficiency as a level between 21 and 29 ng/mL (2).1. IOM ([place] of Medicine). 2010. Dietary reference intakes for calcium and D. [place]: The National Academies Press.2. Mira MF, Rosette LOPEZ, Tommy SWAIN, et al. Evaluation, treatment, and prevention of vitamin D deficiency: an Endocrine Society clinical practice guideline. JCEM. 2010; 96(7):1911-30. 3-Ukx-996779:02 MICROALBUMIN: CREATININE RATIO Comments: send results to Dr. Santana fax: [phone]; A courtesy copy of this report has been sent [phone].PATIENT NOT FASTINGPERFORMED BY: [employer] Warnxo5376 [facility] [id number] (87240) AND (63264) Alb/Creat Ratio 4191.2 {mg/g_creat} (Abnormal) Range: 0.0-30.0 Albumin, Urine 2380.6 ug/mL (Normal) Comments: Results confirmed ondilution. Creatinine, Urine 56.8 mg/dL (Normal) 2-Wan-524592:02 CBC, PLATELETS & MANUAL Comments: send results to Dr. Santana fax: [phone]; A courtesy copy of this report has been sent [phone].PATIENT NOT FASTINGPERFORMED BY: LabCoUniversity HospitalYrxiuc0615 [facility] [id number] Information: VIT D25, PTH DIFF (36392) Immature Grans (Abs) 0.0 {x10E3/uL} (Normal) Range: [...] 3.77-5.28 WBC 5.4 {x10E3/uL} (Normal) Range: 3.4-10.8 3-Yid-699024:02 MAGNESIUM (82496) Comments: send results to Dr. Santana fax: [phone]; A courtesy copy of this report has been sent [phone].PATIENT NOT FASTINGPERFORMED BY: [employer]70 [facility] [id number] Magnesium, Serum 1.8 mg/dL (Normal) Range: 1.6-2.3 8-Upr-970383:02 RENAL FUNCTION PANEL (56745) Comments: send results to Dr. Santana fax: [phone]; A courtesy copy of this report has been sent [phone].PATIENT NOT FASTINGPERFORMED BY: [employer]70 [address] [facility] [id number] Albumin, Serum 3.7 g/dL (Normal) Range: 3.5-4.8 [...] Glucose, Serum 119 mg/dL (Abnormal) Range: 65-99 5-Gld-426738:07 LIPID PANEL (76322) Comments: PATIENT WAS FASTINGPERFORMED BY: TLabs6370 [facility] [id number] LDL/HDL Ratio 1.4 {ratio} (Normal) Range: 0.0-3.2 Comments: LDL/HDL Ratio Men Women 1/2 Avg.Risk 1.0 1.5 Av g.Risk 3.6 3.2 2X Avg.Risk 6.2 5.0 3X Avg.Risk 8.0 6.1 LDL Cholesterol Calc 102 mg/dL (Abnormal) Range: 0-99 VLDL Cholesterol Cesar 17 mg/dL (Normal) Range: 5-40 HDL Cholesterol 75 mg/dL (Normal) Triglycerides 84 mg/dL (Normal) Range: 0-149 Cholesterol, Total 194 mg/dL (Normal) Range: 100-199 4-Wmy-270565:07 CBC W/AUTO DIFF WBC (06622) Comments: PATIENT WAS FASTINGPERFORMED BY: [facility] Sspndx1001 [facility] [id number] Immature Grans (Abs) 0.0 {x10E3/uL} (Normal) Range: [...] 3.77-5.28 WBC 4.8 {x10E3/uL} (Normal) Range: 3.4-10.8 5-Uuu-754407:07 METABOLIC PANEL, COMPREHENSIVE Comments: PATIENT WAS FASTINGPERFORMED BY: [facility] Asurnx0338 [facility] [id number] (91512) ALT (SGPT) 14 [iU]/L (Normal) Range: 0-32 [...] 8-27 Glucose 158 mg/dL (Abnormal) Range: 65-99 8-Zig-424046:07 VITAMIN B-12 (CYANOCOBALAMIN) Comments: PATIENT WAS FASTINGPERFORMED BY: EVE LabCoUniversity HospitalLfplwj4707 [facility] [id number] (79558) Vitamin B12 771 pg/mL (Normal) Range: 232-1245 13-May-20170:00 CDIFF (Molecular) Comments: [facility] Bpdearqjwx[address] [place], [address] CDIFF See Note (Normal) Comments: Cdiff-MolecularNormal Reference Range = Negative C. Diff DNA Negative- No toxigenic C. Diff DNA DetectedNAAT METHOD Testing was performed using nucleic acid amplification :32 Rapid Flu (17208 x 2) Influenza A Ag Negative (Normal) :35 CBC with auto diff (27070) Comments: PATIENT WAS FASTINGPERFORMED BY: [facility] Qdarql2336 [facility] [id number] Immature Grans (Abs) 0.0 {x10E3/uL} (Normal) Range: [...] PANEL, COMPREHENSIVE Comments: PATIENT WAS FASTINGPERFORMED BY: LabCoUniversity HospitalUvokbr0693 [facility] [id number] (31759) ALT (SGPT) 16 [iU]/L (Normal) Range: 0-32 [...] Glucose, Serum 145 mg/dL (Abnormal) Range: 65-99 25-Vzl-788626:51 HgA1C , Office (37209) HgA1C , Office 6.7 % (Normal) Range: 4.6 - 7.1 :50 CALCIFEDIOL (84493) Comments: A courtesy copy of this report has been sent [phone].PATIENT WAS FASTINGPERFORMED BY: TLabs6370 [place] [id number] Vitamin D, 25-Hydroxy 40.7 ng/mL (Normal) Range: 30.0-100.0 Comments: Vitamin D deficiency has been defined by the [place] ofC[facility] Hospitalcine and an Endocrine Society practice guideline as alevel of serum 25-OH vitamin D less than 20 ng/mL (1,2).The Endocrine Society went on to further define vitamin Dinsufficiency as a level between 21 and 29 ng/mL (2).1. IOM ([place] of Medicine). 2010. Dietary reference intakes for calcium and D. [place]: The National Academies Press.2. Mira MF, Rosette LOPEZ, Tommy SWAIN, et al. Evaluation, treatment, and prevention of vitamin D deficiency: an Endocrine Society clinical practice guideline. JCEM. 2010; 96(7):1911-30. 5-Qrb-345044:50 PTH (PARATHORMONE) (40765) Comments: A courtesy copy of this report has been sent [phone].PATIENT WAS FASTINGPERFORMED BY: [employer]70 [facility] [id number] PTH, Intact 20 pg/mL (Normal) Range: 15-65 0-Syw-851093:50 MICROALBUMIN: CREATININE RATIO Comments: A courtesy copy of this report has been sent [phone].PATIENT WAS FASTINGPERFORMED BY: TLabs6370 [facility] [id number] (12917) AND (40111) Microalb/Creat Ratio 4376.0 {mg/g_creat} (Abnormal) Range: 0.0-30.0 Microalbumin, Urine 3369.5 ug/mL (Normal) Comments: Results confirmed ondilution. Creatinine, Urine 77.0 mg/dL (Normal) 8-Dpy-198002:50 Renal function Panel Comments: A courtesy copy of this report has been sent [phone].PATIENT WAS FASTINGPERFORMED BY: [employer]70 [facility] [id number] Information: FX DR. SANTANA [phone] (24552) Albumin, Serum 3.8 g/dL (Normal) Range: 3.5-4.8 [...] Glucose, Serum 203 mg/dL (Abnormal) Range: 65-99 7-Mqs-573063:50 Magnesium (72362) Comments: A courtesy copy of this report has been sent [phone].PATIENT WAS FASTINGPERFORMED BY: [employer]University HospitalLjopbc1452 [facility] [id number] Magnesium, Serum 1.8 mg/dL (Normal) Range: 1.6-2.3 6-Kgw-418129:53 CBC with auto diff (53530) Comments: A courtesy copy of this report has been sent [phone].PATIENT WAS FASTINGPERFORMED BY: [facility]6370 [facility] [id number] Immature Grans (Abs) 0.0 {x10E3/uL} (Normal) Range: [...] {x10E3/uL} (Normal) Range: 3.4-10.8 :53 LIPID PANEL (60283) Comments: A courtesy copy of this report has been sent [phone].PATIENT WAS FASTINGPERFORMED BY: LabKalamazoo Psychiatric Hospital6370 [facility] [id number] LDL/HDL Ratio 1.2 {ratio_units} (Normal) Range: 0.0-3.2 Comments: LDL/HDL Ratio Men Women 1/2 Avg.Risk 1.0 1.5 Av g.Risk 3.6 3.2 2X Avg.Risk 6.2 5.0 3X Avg.Risk 8.0 6.1 LDL Cholesterol Calc 90 mg/dL (Normal) Range: 0-99 VLDL Cholesterol Cesar 13 mg/dL (Normal) Range: 5-40 HDL Cholesterol 76 mg/dL (Normal) Triglycerides 67 mg/dL (Normal) Range: 0-149 Cholesterol, Total 179 mg/dL (Normal) Range: 100-199 5-Tjy-476685:53 METABOLIC PANEL, COMPREHENSIVE Comments: A courtesy copy of this report has been sent [phone].PATIENT WAS FASTINGPERFORMED BY: [employer] CenterCxqfnl8013 [facility] [id number] (04573) ALT (SGPT) 11 [iU]/L (Normal) Range: 0-32 [...] Glucose, Serum 205 mg/dL (Abnormal) Range: 65-99 99-Kun-288284:57 HgA1C , Office (39546) HgA1C , Office 7.1 % (Normal) Range: 4.6 - 7.1 10-Nov-20169:09 LIPID PANEL (76737) Comments: PATIENT WAS FASTINGPERFORMED BY: [employer] Medical CenterSildbp0600 [facility] [id number] LDL/HDL Ratio 1.3 {ratio_units} (Normal) Range: 0.0-3.2 [...] PANEL, COMPREHENSIVE Comments: PATIENT WAS FASTINGPERFORMED BY: LabCoUniversity HospitalEbjiqc3267 [facility] [id number] (54245) ALT (SGPT) 12 [iU]/L (Normal) Range: 0-32 [...] (Abnormal) Range: 65-99 :50 HgA1C , Office (05017) HgA1C , Office 6.7 % (Normal) Range: 4.6 - 7.1 :25 Magnesium, Serum 1.9 mg/dL (Normal) Comments: PATIENT WAS FASTINGPERFORMED BY: [facility] Ytbusp4181 [address] RoadDublin [place] [id number] Range: 1.6-2.3 :25 Microalb/Creat Ratio, Randm Ur Comments: PATIENT WAS FASTINGPERFORMED BY: LabMROrp Danque5924 [address] RoadDublin [place] [id number] Microalb/Creat Ratio 2652.0 {mg/g_creat} Range: 0.0-30.0 (Abnormal) Microalbumin, Urine 2482.3 ug/mL (Normal) Comments: Results confirmed ondilution. Creatinine, Urine 93.6 mg/dL (Normal) PTH, Intact 26 pg/mL (Normal) Comments: PATIENT WAS FASTINGPERFORMED BY: LabMROrp Rleowu3938 [address] RoadDublin [place] [id number] :25 Range: 15-65 :25 Renal Panel (10) Comments: PATIENT WAS FASTINGPERFORMED BY: [facility] Loaaza1773 [address] RoadDublin [place] [id number] Phosphorus, Serum 4.3 mg/dL (Normal) Range: 2.5-4.5 :25 Thyroxine (T4) Free, Direct, S Comments: PATIENT WAS FASTINGPERFORMED BY: [facility] Jbexzw1740 [address] RoadDublin [place] [id number] T4,Free(Direct) 1.08 ng/dL (Normal) Range: 0.82-1.77 : TSH 2.980 {uIU/mL} Comments: PATIENT WAS FASTINGPERFORMED BY: [facility] Wahvzg1649 [address] RoadDublin [place] [id number] 25 (Normal) Range: 0.450-4.500 : Vitamin D, 25-Hydroxy 37.1 ng/mL (Normal) Comments: PATIENT WAS FASTINGPERFORMED BY: [employer] Loaexr8430 [facility] [id number] 25 Range: 30.0-100.0 Comments: Vitamin D deficiency has been defined by the [place] ofMedicine and an Endocrine Society practice guideline as alevel of serum 25-OH vitamin D less than 20 ng/mL (1,2).The Endocrine Society went on to further define vitamin Dinsufficiency as a level between 21 and 29 ng/mL (2).1. IOM ([place] of Medicine). 2010. Dietary reference intakes for calcium and D. [place]: The National Academies Press.2. Mira MF, Rosette LOPEZ, Tommy SWAIN, et al. Evaluation, treatment, and prevention of vitamin D deficiency: an Endocrine Society clinical practice guideline. JCEM. 2010; 96(7):1911-30. -:25 CBC W/AUTO DIFF WBC (53177) Comments: PATIENT WAS FASTINGPERFORMED BY: [facility] Dwyuos8567 [facility] [id number] Immature Grans (Abs) 0.0 {x10E3/uL} (Normal) Range: [...] COMPREHENSIVE Comments: PATIENT WAS FASTINGPERFORMED BY: [facility] Fxybeb4886 [facility] [id number]; non- emergent till apt (83574) ALT (SGPT) 10 [iU]/L (Normal) Range: 0-32 [...] mg/dL (Abnormal) Range: 65-99 :25 LIPID PANEL (79270) Comments: PATIENT WAS FASTINGPERFORMED BY: [facility] ROW SPORTSKalamazoo Psychiatric Hospital6370 [facility] [id number] LDL/HDL Ratio 0.9 {ratio_units} (Normal) Range: 0.0-3.2 Comments: LDL/HDL Ratio Men Women 1/2 Avg.Risk 1.0 1.5 Av g.Risk 3.6 3.2 2X Avg.Risk 6.2 5.0 3X Avg.Risk 8.0 6.1 LDL Cholesterol Calc 65 mg/dL (Normal) Range: 0-99 VLDL Cholesterol Cesar 19 mg/dL (Normal) Range: 5-40 HDL Cholesterol 75 mg/dL (Normal) Triglycerides 93 mg/dL (Normal) Range: 0-149 Cholesterol, Total 159 mg/dL (Normal) Range: 100-199 78-Qje-530313:54 HgA1C , Office (50684) HgA1C , Office 6.6 % (Normal) Range: 4.6 - 7.1 15-Nwx-642539:1 Magnesium, Serum 2.1 mg/dL (Normal) Comments: PATIENT WAS FASTINGPERFORMED BY: [facility] ROW SPORTSKalamazoo Psychiatric Hospital6370 [facility] [id number] 2 Range: 1.6-2.3 60-Lyj-093994:12 Microalb/Creat Ratio, Randm Ur Comments: PATIENT WAS FASTINGPERFORMED BY: [facility]ATH[facility] ROW SPORTSKalamazoo Psychiatric Hospital6370 [facility] [id number] Microalb/Creat Ratio 1863.4 {mg/g_creat} (Abnormal) Range: 0.0-30.0 Microalbumin, Urine 1416.2 ug/mL (Normal) Comments: Results confirmed ondilution. Creatinine, Urine 76.0 mg/dL (Normal) 31-Ibn-831769:12 Microscopic Examination Comments: PATIENT WAS FASTINGPERFORMED BY: [facility] ROW SPORTSKalamazoo Psychiatric Hospital6370 [facility] [id number] Bacteria None seen (Normal) Mucus Threads Present (Normal) Cast Type Hyaline casts (Normal) Casts Present {/lpf} (Abnormal) Epithelial Cells (non 0-10 {/hpf} Range: 0 - 10 renal) (Normal) RBC 3-10 {/hpf} Range: 0 - 2 (Abnormal) WBC 6-10 {/hpf} Range: 0 - 5 (Abnormal) PTH, Intact 36 pg/mL (Normal) Comments: PATIENT WAS FASTINGPERFORMED BY: [employer] Ycgflg5305 [facility] [id number] 0:12 Range: 15-65 Vitamin D, 25-Hydroxy 42.9 ng/mL (Normal) Comments: PATIENT WAS FASTINGPERFORMED BY: [employer] Bgvysp1605 [facility] [id number] 0:12 Range: 30.0-100.0 Comments: Vitamin D deficiency has been defined by the [place] ofMedicine and an Endocrine Society practice guideline as alevel of serum 25-OH vitamin D less than 20 ng/mL (1,2).The Endocrine Society went on to further define vitamin Dinsufficiency as a level between 21 and 29 ng/mL (2).1. IOM ([place] of Medicine). 2010. Dietary reference intakes for calcium and D. [place]: The National Academies Press.2. Mira MF, Rosette NC, Tommy SWAIN, et al. Evaluation, treatment, and prevention of vitamin D deficiency: an Endocrine Society clinical practice guideline. JCEM. 2010; 96(7):1911-30. 82-Lht-367877:12 URINALYSIS, W/ MICRO (08388) Comments: PATIENT WAS FASTINGPERFORMED BY: [employer] Mkcfzk9589 [facility] [id number] Microscopic Examination See below: (Normal) Comments: Microscopic was indicated and was performed. Nitrite, Urine Negative (Normal) Urobilinogen,Semi-Qn 0.2 mg/dL (Normal) Range: 0.2-1.0 Bilirubin Negative (Normal) Occult Blood Negative (Normal) Ketones Negative (Normal) Glucose Negative (Normal) Protein 4+ (Abnormal) WBC Esterase Trace (Abnormal) Appearance Clear (Normal) Urine-Color Yellow (Normal) pH 6.0 (Normal) Range: 5.0-7.5 Specific [place] 1.015 (Normal) Range: 1.005-1.030 16-Kes-071573:12 CBC W/AUTO DIFF WBC (17049) Comments: PATIENT WAS FASTINGPERFORMED BY: [employer]2 [facility] [id number] Immature Grans (Abs) 0.0 {x10E3/uL} (Normal) Range: [...] 3.77-5.28 WBC 6.2 {x10E3/uL} (Normal) Range: 3.4-10.8 61-Spz-824042:12 METABOLIC PANEL, COMPREHENSIVE Comments: PATIENT WAS FASTINGPERFORMED BY: [employer]University HospitalAutddy9096 [facility] [id number] (82599) ALT (SGPT) 14 [iU]/L (Normal) Range: 0-32 [...] Glucose, Serum 154 mg/dL (Abnormal) Range: 65-99 40-Mov-483646:12 LIPID PANEL (44631) Comments: PATIENT WAS FASTINGPERFORMED BY: LabKalamazoo Psychiatric Hospital6370 [facility] [id number] LDL/HDL Ratio 0.7 {ratio_units} (Normal) Range: 0.0-3.2 Comments: LDL/HDL Ratio Men Women 1/2 Avg.Risk 1.0 1.5 Av g.Risk 3.6 3.2 2X Avg.Risk 6.2 5.0 3X Avg.Risk 8.0 6.1 LDL Cholesterol Calc 49 mg/dL (Normal) Range: 0-99 VLDL Cholesterol Cesar 14 mg/dL (Normal) Range: 5-40 HDL Cholesterol 75 mg/dL (Normal) Triglycerides 68 mg/dL (Normal) Range: 0-149 Cholesterol, Total 138 mg/dL (Normal) Range: 100-199 18-Ety-436045:50 HgA1C , Office (77206) HgA1C , Office 6.7 % (Normal) Range: 4.6 - 7.1 98-Vqk-361267:36 VITAMIN B-12 (CYANOCOBALAMIN) Comments: PATIENT WAS FASTINGPERFORMED BY: [facility]6370 [facility] [id number] (84245) Vitamin B12 802 pg/mL (Normal) Range: 211-946 73-Gbj-788592:36 LIPID PANEL (57362) Comments: PATIENT WAS FASTINGPERFORMED BY: [facility] [place] [address] [id number] LDL/HDL Ratio 0.8 {ratio_units} (Normal) Range: 0.0-3.2 [...] Cholesterol, Total 161 mg/dL (Normal) Range: 100-199 50-Crp-495352:36 LDH (LD) (LACTATE DEHYDROGENASE) Comments: PATIENT WAS FASTINGPERFORMED BY: [facility]6370 [facility] [id number] (77331) LDH 217 [iU]/L (Normal) Range: 119-226 99-Kdg-553002:36 CBC W/AUTO DIFF WBC (62092) Comments: PATIENT WAS FASTINGPERFORMED BY: [facility]6370 [facility] [id number] Immature Grans (Abs) 0.0 {x10E3/uL} (Normal) Range: [...] 3.77-5.28 WBC 10.6 {x10E3/uL} (Normal) Range: 3.4-10.8 10-Vaj-827174:36 METABOLIC PANEL, COMPREHENSIVE Comments: PATIENT WAS FASTINGPERFORMED BY: [facility] Ixxqpk3651 [facility] [id number] (03965) ALT (SGPT) 15 [iU]/L (Normal) Range: 0-32 [...] Glucose, Serum 137 mg/dL (Abnormal) Range: 65-99 43-Fyx-383565:36 TSH (69765) Comments: PATIENT WAS FASTINGPERFORMED BY: M:Metrics Yjdckg5682 [facility] [id number] TSH 0.560 {uIU/mL} (Normal) Range: 0.450-4.500 82-Ndg-07718:02 Renal function Panel (29238) Comments: PATIENT WAS FASTINGPERFORMED BY: [facility] Yuqjhi6676 [facility] [id number] Albumin, Serum 3.7 g/dL (Normal) Range: 3.5-4.8 [...] 137 mg/dL (Abnormal) Range: 65-99 :02 MAGNESIUM (48847) Comments: PATIENT WAS FASTINGPERFORMED BY: Thim[facility] BioelectronicsVidant Pungo Hospital [id number] Magnesium, Serum 2.2 mg/dL (Normal) Range: 1.6-2.3 :02 MICROALBUMIN: CREATININE RATIO Comments: PATIENT WAS FASTINGPERFORMED BY: [employer]70 [place] [facility] HospitalYabiduVidant Pung[facility] Hospital [id number] (01321) AND (55869) Microalb/Creat Ratio 2038.7 {mg/g_creat} (Abnormal) Range: 0.0-30.0 Microalbumin, Urine 1223.2 ug/mL (Normal) Comments: Results confirmed ondilution. Creatinine, Urine 60.0 mg/dL (Normal) :02 CBC WITH MANUAL DIFF Comments: PATIENT WAS FASTINGPERFORMED BY: TLabs6370 [address] [facility] HospitalYabiduVidant Pung[facility] [id number] Information: [id number] (49473) Immature Grans (Abs) 0.0 {x10E3/uL} (Normal) Range: [...] {x10E3/uL} (Normal) Range: 3.4-10.8 :02 HGB A1C (33210) Comments: PATIENT WAS FASTINGPERFORMED BY: ASSET4lin6370 [facility] [id number] Hemoglobin A1c 6.4 % (Abnormal) Range: 4.8-5.6 Comments: . Pre-diabetes: 5.7 - 6.4 Diabetes: >6.4 Glycemic control for adults with diabetes: <7.0 :02 Lipid Panel (66924) Comments: PATIENT WAS FASTINGPERFORMED BY: [employer]70 [facility] [id number] LDL/HDL Ratio 1.1 {ratio_units} (Normal) Range: 0.0-3.2 [...] Cholesterol, Total 160 mg/dL (Normal) Range: 100-199 89-Icm-922844:03 HgA1C , Office (88321) HgA1C , Office 6.1 % (Normal) Range: 4.6 - 7.1 :24 CBC W/AUTO DIFF WBC Comments: PATIENT WAS FASTINGPERFORMED BY: LabCoUniversity HospitalElicmg7478 [facility] [id number] Information: [id number] (48386) Immature Grans (Abs) 0.0 {x10E3/uL} (Normal) Range: [...] CREATININE RATIO Comments: PATIENT WAS FASTINGPERFORMED BY: [employer] Mzcgxu9009 [facility] [id number] (05415) AND (52632) Microalb/Creat Ratio 1223.8 {mg/g_creat} (Abnormal) Range: 0.0-30.0 Microalbumin, Urine 1012.1 ug/mL (Abnormal) Range: 0.0-17.0 Comments: Results confirmed ondilution. Creatinine, Urine 82.7 mg/dL (Normal) Range: 15.0-278.0 :24 METABOLIC PANEL, COMPREHENSIVE Comments: PATIENT WAS FASTINGPERFORMED BY: M:Metrics Rzxaqb2022 [facility] [id number] (03963) ALT (SGPT) 12 [iU]/L (Normal) Range: 0-32 [...] mg/dL (Abnormal) Range: 65-99 :24 LIPID PANEL (91745) Comments: PATIENT WAS FASTINGPERFORMED BY: [facility] Umtcmk6401 [facility] [id number] LDL/HDL Ratio 1.1 {ratio_units} (Normal) Range: 0.0-3.2 [...] Range: 100-199 :30 CBC W/Diff, Automated Comments: [facility] Beec[address]ijgz[address] [place], [place], [id number] Absolute Lymph 0.83 {X10_3/ul} (Normal) Range: 0.83-4.51 [...] (Normal) Range: 4.4-11.0 :30 Hemoglobin A1c Comments: [address] [place], [place], [id number](392) HGB A1C 6.1 % (Normal) Range: 4.2-6.3 :30 Magnesium Comments: [address] [place], [place], [id number](490) MG 1.8 mg/dL (Normal) Range: 1.8-2.4 :30 Protein+Creatinine Ratio,Urine Comments: [address] [place], [place], [id number](519) PROT:CRE RATIO 2121 {mg/g_CRE} (Abnormal) Range: 0-200 PROTEIN,UR.RAN. 164.2 mg/dL (Abnormal) UR CREAT 77.40 mg/dL (Normal) :30 Renal Profile Comments: [facility] [address] [place], [place], [phone](490) CO2 27.0 mmol/L (Normal) Range: 21.0-32.0 CL [...] 126 mg/dLsuggests DIABETES MELLITUS per A.D.A. criteria. 54-Chc-75545:00 24 HR UR Creatinine Clearance Comments: [facility] Uttysuttuj4863 [facility] [place], [place], [id number] CREAT CLEARANCE 24 ml/min (Abnormal) Range: 100-200 URINE CREAT 20.6 mg/dL (Normal) EST GFR - AA 38 mL/min (Abnormal) Comments: GFR Calc EST GFR 31 mL/min (Abnormal) Comments: Non- GFR Calc SERUM CREAT 1.7 mg/dL (Abnormal) Range: 0.6-1.0 UR TOTAL VOLUME 2800 mL (Normal) UR COLLECT TIME 24.0 {HOURS} (Normal) 08-Wnc-19719:00 Protein, Urine 24HR Comments: [facility] Opqodpkvns0778 [place], [address] 24hr UR PROTEIN 1178.8 {mg/24HR} (Abnormal) URINE PROTEIN 42.1 mg/dL (Abnormal) UR TOTAL VOLUME 2800 mL (Normal) UR COLLECT TIME 24.0 {HOURS} (Normal) 6-Nig-766282:29 Metabolic Panel, Basic Comments: PATIENT NOT FASTINGPERFORMED BY: LabCoUniversity HospitalYbnyri1637 [facility] [id number] Information: [id number] (25921) Calcium, Serum 9.3 mg/dL (Normal) Range: 8.7-10.3 [...] Basic Comments: tuesday; PATIENT NOT FASTINGPERFORMED BY: LabCoUniversity HospitalWjwrbe3430 [facility] [id number] Information: [id number] (87826) Calcium, Serum 9.0 mg/dL (Normal) Range: 8.7-10.3 [...] Glucose, Serum 149 mg/dL (Abnormal) Range: 65-99 17-Kcn-496725:32 HgA1C , Office (36990) HgA1C , Office 6.2 % (Normal) Range: 4.6 - 7.1 :31 Rapid Strep Test, Office (46544) Comments: neg Rapid Strep Test, Office Negative (Normal) :06 THROAT CULTURE (23705) Comments: PATIENT NOT FASTINGPERFORMED BY: CB [facility] Gbdaxz5924 [address] RoadDublin [place] [id number] Information: [id number] Result 1 RRF (Normal) Comments: Routine respiratory luis Upper Respiratory Culture Final report (Normal) :52 TSH (16500) Comments: PATIENT WAS FASTINGPERFORMED BY: CB [facility] Yheaim8888 [address] RoadDublin [place] [id number] TSH 2.190 {uIU/mL} (Normal) Range: 0.450-4.500 :52 Vitamin D Hydroxy (07311) Comments: PATIENT WAS FASTINGPERFORMED BY: CB [facility] Uyobbo1165 [address] RoadDublin [place] [id number] Vitamin D, 25-Hydroxy 43.8 ng/mL (Normal) Range: 30.0-100.0 Comments: Vitamin D deficiency has been defined by the [place] ofMedicine and an Endocrine Society practice guideline as alevel of serum 25-OH vitamin D less than 20 ng/mL (1,2).The Endocrine Society went on to further define vitamin Dinsufficiency as a level between 21 and 29 ng/mL (2).1. IOM ([place] of Medicine). 2010. Dietary reference intakes for calcium and D. [place]: The National Academies Press.2. Mira MF, Rosette NC, Tommy SWAIN, et al. Evaluation, treatment, and prevention of vitamin D deficiency: an Endocrine Society clinical practice guideline. JCEM. 2010; 96(7):1911-30. :52 LIPID PANEL (64110) Comments: PATIENT WAS FASTINGPERFORMED BY: CB [facility] Zxvqvf5794 [address]Dublin [place] [id number] LDL/HDL Ratio 1.3 {ratio_units} (Normal) Range: 0.0-3.2 [...] auto diff Comments: PATIENT WAS FASTINGPERFORMED BY: LabCoUniversity HospitalLjrtsy3297 [facility] [id number] Information: [id number] (13238) Immature Grans (Abs) 0.0 {x10E3/uL} (Normal) Range: [...] COMPREHENSIVE Comments: PATIENT WAS FASTINGPERFORMED BY: [facility] Emogqf9659 [facility] [id number] (29197) ALT (SGPT) 19 [iU]/L (Normal) Range: 0-32 [...] (Abnormal) Range: 65-99 :08 HgA1C , Office (99392) HgA1C , Office 6.4 % (Normal) Range: 4.6 - 7.1 5-Yye-215618:00 Creatinine Clearance Comments: PATIENT NOT FASTINGPERFORMED BY: [facility]6370 [facility] [id number] Information: [id number] S TART Creatinine Clearance 33 mL/min (Abnormal) Range: 88-128 Comments: The above range is based on 1.73 square meter average body surfacearea. Creatinine, Ur 24hr 642.0 {mg/24_hr} (Abnormal) Range: 800.0-1800.0 Creatinine, Urine 34.7 mg/dL (Normal) Range: 15.0-278.0 eGFR If Africn Am 43 mL/min/1.73 (Abnormal) eGFR If NonAfricn Am 37 mL/min/1.73 (Abnormal) Creatinine, Serum 1.37 mg/dL (Abnormal) Range: 0.57-1.00 [id number]:00 Protein Total, Qn, 24-Hr Comments: PATIENT NOT FASTINGPERFORMED BY: [facility] [facility] [id number] Urine Prot,24hr calculated 1309.8 {mg/24_hr} (Abnormal) Range: 30.0-150.0 Protein,Total,Urine 70.8 mg/dL (Abnormal) Range: 0.0-15.0 :01 CBC W/Diff, Automated Comments: Test performed at:[facility] [address] [place] [address] Absolute Neut 3.1 {X10_3/uL} (Normal) [...] Range: 4.4-11.0 :01 Magnesium Comments: Test performed at:[facility] [address] [place] [address] 94065 MG 2.0 mg/dL (Normal) Range: 1.8-2.4 :01 Protein+Creatinine Ratio,Urine Comments: Test performed at:[facility] [address] [place] [address] 73178 PROT:CRE RATIO 2232 {mg/g_CRE} (Abnormal) Range: 0-200 PROTEIN,UR.RAN. 160.3 mg/dL (Abnormal) UR CREAT 71.8 mg/dL (Normal) :01 Renal Profile Comments: Test performed at:[facility] [address] [place] [address] 93647 CO2 32.0 mmol/L (Normal) Range: 21.0-32.0 CL [...] mg/dL (Normal) Range: 70-110 :08 LIPID PANEL (35511) Comments: PATIENT WAS FASTINGPERFORMED BY: [employer]University HospitalLswuoy2797 [facility] [id number] LDL/HDL Ratio 1.0 {ratio_units} (Normal) Range: 0.0-3.2 [...] METABOLIC PANEL, Comments: PATIENT WAS FASTINGPERFORMED BY: [employer]University HospitalUszkrj5888 [facility] [id number] Information: [id number] COMPREHENSIVE (13810) ALT (SGPT) 29 [iU]/L (Normal) Range: 0-32 [...] (Abnormal) Range: 65-99 :59 HgA1C , Office (60853) HgA1C , Office 6.5 % (Normal) Range: 4.6 - 7.1 :54 CBC W/AUTO DIFF WBC Comments: PATIENT WAS FASTINGPERFORMED BY: LabCoUniversity HospitalFiufaj8627 [facility] [id number] Information: [id number] (90004) Immature Grans (Abs) 0.0 {x10E3/uL} (Normal) Range: [...] COMPREHENSIVE Comments: PATIENT WAS FASTINGPERFORMED BY: [facility] Pazxxs9368 [facility] [id number]; non- emergent till apt (72580) ALT (SGPT) 13 [iU]/L (Normal) Range: 0-32 [...] mg/dL (Abnormal) Range: 65-99 :54 LIPID PANEL (05160) Comments: PATIENT WAS FASTINGPERFORMED BY: LabCoUniversity HospitalXkrzyi8980 [facility] [id number] LDL/HDL Ratio 1.1 {ratio_units} (Normal) Range: 0.0-3.2 [...] (Normal) Range: 100-199 :29 HgA1C , Office (39185) HgA1C , Office 6.6 % (Normal) Range: 4.6 - 7.1 :12 CBC W/Diff, Automated Comments: Test performed at:[facility] [address] [place] [address] ; handled by Dr. Santana [...] Range: 4.4-11.0 :12 Magnesium Comments: Test performed at:[facility] [address] [place] [address] 25215 MG 2.0 mg/dL (Normal) Range: 1.8-2.4 :12 Microalb:Creat Ratio,Random UR Comments: Test performed at:[facility] [address] [place] [address] ; Dr. Angelo LING:CREAT 1483.0 {mg/g_CRE} (Abnormal) MICROALBUMIN,UR 918.0 mg/L (Normal) UR CREAT 61.9 mg/dL (Normal) :12 Renal Profile Comments: Test performed at:[facility] [address] [place] [address] 74859 CO2 29.0 mmol/L (Normal) Range: 21.0-32.0 CL [...] 126 mg/dLsuggests DIABETES MELLITUS per A.D.A. criteria. 43-Kpc-458534:20 LIPID PANEL (87605) Comments: PATIENT WAS FASTINGPERFORMED BY: [employer]University HospitalZepiob4037 [facility] [id number] LDL/HDL Ratio 1.0 {ratio_units} (Normal) Range: 0.0-3.2 [...] Cholesterol, Total 151 mg/dL (Normal) Range: 100-199 94-Qpf-431851:20 METABOLIC PANEL, Comments: PATIENT WAS FASTINGPERFORMED BY: [employer]University HospitalNczfug9254 [facility] [id number] Information: [id number] COMPREHENSIVE (80696) ALT (SGPT) 16 [iU]/L (Normal) Range: 0-32 [...] Glucose, Serum 148 mg/dL (Abnormal) Range: 65-99 08-Uri-381383:21 CREATININE CLEARANCE Comments: PATIENT WAS FASTINGPERFORMED BY: [facility]6370 [facility] [id number] Information: [id number] START 04/02/14@9AM FINISH 04/03/14 6:00 AM (90984) Creatinine Clearance 42 mL/min (Abnormal) Range: 88-128 Comments: The above range is based on 1.73 square meter average body surfacearea. Creatinine, Ur 24hr 812.3 {mg/24_hr} (Normal) Range: 800.0-1800.0 Creatinine, Urine 28.5 mg/dL (Normal) Range: 15.0-278.0 eGFR If Africn Am 45 mL/min/1.73 (Abnormal) eGFR If NonAfricn Am 39 mL/min/1.73 (Abnormal) Creatinine, Serum 1.33 mg/dL (Abnormal) Range: 0.57-1.00 40-Cho-174078:21 Total Protein,24 Hour Urine Comments: PATIENT WAS FASTINGPERFORMED BY: [facility] SPORTSKalamazoo Psych[facility] Hospital6370 [facility] [id number] (64165) Prot,24hr calculated 1559.0 {mg/24_hr} (Abnormal) Range: 30.0-150.0 Protein,Total,Urine 54.7 mg/dL (Abnormal) Range: 0.0-15.0 :57 LIPID PANEL (10036) Comments: PATIENT WAS FASTINGPERFORMED BY: [facility] SPORTSKal[facility] Hospital6370 [facility] [id number] LDL/HDL Ratio 1.1 {ratio_units} (Normal) Range: 0.0-3.2 [...] MANUAL DIFF Comments: PATIENT WAS FASTINGPERFORMED BY: [facility]6370 [facility] [id number] Information: [id number] (13859) Immature Grans (Abs) 0.0 {x10E3/uL} (Normal) Range: [...] PANEL, COMPREHENSIVE Comments: PATIENT WAS FASTINGPERFORMED BY: LabCoUniversity HospitalSbqaum7047 [facility] [id number] (56007) ALT (SGPT) 10 [iU]/L (Normal) Range: 0-32 [...] 0 Comments: Result Units: mg/dL AdultPerformed at: [facility] [address] [id number] Director: Yousuf Bernardo PhD, Phone: [phone] [phone] (Abnormal) Range: 9-36 0 [...] 75.6 mg/dL (Abnormal) CREU 49.3 mg/dL (Normal) 42-Aom-03255:21 CBC WITH MANUAL DIFF Comments: PATIENT WAS FASTINGPERFORMED BY: LabCoUniversity HospitalYqsedt1087 [facility] [id number] Information: [id number] (78443) Immature Grans (Abs) 0.0 {x10E3/uL} (Normal) Range: [...] 3.77-5.28 WBC 4.5 {x10E3/uL} (Normal) Range: 3.4-10.8 59-Bpe-65468:21 METABOLIC PANEL, COMPREHENSIVE Comments: PATIENT WAS FASTINGPERFORMED BY: LabCoUniversity HospitalFoajnj2862 [facility] [id number] (82357) ALT (SGPT) 16 [iU]/L (Normal) Range: 0-32 [...] Glucose, Serum 132 mg/dL (Abnormal) Range: 65-99 19-Ehi-381605:53 CREATININE CLEARANCE Comments: PATIENT NOT FASTINGPERFORMED BY: LabCoUniversity HospitalAxzrrt4116 [facility] [id number] Information: [id number] START 10/30/13@8AM F INISH 10/31/13@8AM 2650ML (00647) Creatinine Clearance 44 mL/min (Abnormal) Range: 88-128 Comments: The above range is based on 1.73 square meter average body surfacearea. Creatinine, Ur 24hr 877.2 {mg/24_hr} (Normal) Range: 800.0-1800.0 Creatinine, Urine 33.1 mg/dL (Normal) Range: 15.0-278.0 eGFR If Africn Am 44 mL/min/1.73 (Abnormal) eGFR If NonAfricn Am 38 mL/min/1.73 (Abnormal) Creatinine, Serum 1.37 mg/dL (Abnormal) Range: 0.57-1.00 70-Xyx-382772:53 Total Protein,24 Hour Urine Comments: PATIENT NOT FASTINGPERFORMED BY: [employer]70 [facility] [id number] (25925) Prot,24hr calculated 3458.3 {mg/24_hr} (Abnormal) Range: 30.0-150.0 Protein,Total,Urine 130.5 mg/dL (Abnormal) Range: 0.0-15.0 73-Oay-566097:31 HgA1C , Office (59769) HgA1C , Office 6.4 % (Normal) Range: 4.6 - 7.1 30-Kan-949992:27 Microscopic Examination Comments: PATIENT WAS FASTINGPERFORMED BY: [employer] [facility] [id number] Bacteria Few (Normal) Mucus Threads Present (Normal) Epithelial Cells (non renal) 0-10 {/hpf} (Normal) Range: 0 - 10 RBC 3-10 {/hpf} (Abnormal) Range: 0 - 2 WBC 6-10 {/hpf} (Abnormal) Range: 0 - 5 :32 LIPID PANEL (27343) Comments: PATIENT WAS FASTINGPERFORMED BY: [employer]70 [facility] [id number] LDL/HDL Ratio 1.0 {ratio_units} (Normal) Range: 0.0-3.2 [...] CREATININE RATIO Comments: PATIENT WAS FASTINGPERFORMED BY: [employer] [facility] [id number] (65379) AND (26611) Microalb/Creat Ratio 1998.9 {mg/g_creat} (Abnormal) Range: 0.0-30.0 Creatinine, Urine 73.4 mg/dL (Normal) Range: 15.0-278.0 Microalbumin, Urine 1467.2 ug/mL (Abnormal) Range: 0.0-17.0 :32 URINALYSIS, W/ MICRO (29474) Comments: PATIENT WAS FASTINGPERFORMED BY: [employer]University HospitalNgugtb4527 [facility] [id number] Microscopic Examination See below: (Normal) Comments: Microscopic was indicated and was performed. Nitrite, Urine Negative (Normal) Urobilinogen,Semi-Qn 0.2 mg/dL (Normal) Range: 0.0-1.9 Bilirubin Negative (Normal) Occult Blood Trace (Abnormal) Ketones Negative (Normal) Glucose Negative (Normal) Protein 3+ (Abnormal) WBC Esterase Trace (Abnormal) Appearance Clear (Normal) Urine-Color Yellow (Normal) pH 6.5 (Normal) Range: 5.0-7.5 Specific [place] 1.015 (Normal) Range: 1.005-1.030 :32 CBC WITH MANUAL DIFF Comments: PATIENT WAS FASTINGPERFORMED BY: [facility] SPORTSKal[facility] Psych[facility] Hospital6370 [facility] [id number] Information: [id number] (76233) Immature Grans (Abs) 0.0 {x10E3/uL} (Normal) Range: [...] 3.77-5.28 WBC 3.7 {x10E3/uL} (Normal) Range: 3.4-10.8 40-Ifu-78325:32 METABOLIC PANEL, COMPREHENSIVE Comments: PATIENT WAS FASTINGPERFORMED BY: LabCoUniversity HospitalZthzfa0701 [facility] [id number] (89321) ALT (SGPT) 16 [iU]/L (Normal) Range: 0-32 [...] B-12 (CYANOCOBALAMIN) Comments: PATIENT WAS FASTINGPERFORMED BY: MinervaxUniversity HospitalJkivuu4174 [facility] [id number] (83288) Vitamin B12 >1999 pg/mL (Abnormal) Range: 211-946 11-Yqd-905943:01 HgA1C , Office (19774) HgA1C , Office 6.4 % (Normal) Range: 4.6 - 7.1 :37 METABOLIC PANEL, COMPREHENSIVE Comments: PATIENT WAS FASTINGPERFORMED BY: [employer] Afkwbc1483 [facility] [id number] (81323) ALT (SGPT) 12 [iU]/L (Normal) Range: 0-32 [...] (Abnormal) Range: 65-99 :37 Vitamin D Hydroxy (51787) Comments: PATIENT WAS FASTINGPERFORMED BY: TLabs6370 [facility] [id number] Vitamin D, 25-Hydroxy 47.4 ng/mL (Normal) Range: 30.0-100.0 Comments: Vitamin D deficiency has been defined by the [place] of[facility] and an Endocrine Society practice guideline as alevel of serum 25-OH vitamin D less than 20 ng/mL (1,2).The Endocrine Society went on to further define vitamin Dinsufficiency as a level between 21 and 29 ng/mL (2).1. IOM ([place] of Medicine). 2010. Dietary reference intakes for calcium and D. [place]: The National Academies Press.2. Mira MF, Rosette [place], Tommy SWAIN, et al. Evaluation, treatment, and prevention of vitamin D deficiency: an Endocrine Society clinical practice guideline. JCEM. 2010; 96(7):1911-30. :37 LIPID PANEL (77699) Comments: PATIENT WAS FASTINGPERFORMED BY: [employer] LabMRO Uqgyrr9043 [facility] [id number] LDL/HDL Ratio 1.2 {ratio_units} (Normal) Range: 0.0-3.2 [...] DIFF Comments: PATIENT WAS FASTINGPERFORMED BY: [employer]University HospitalPoepux7861 [facility] [id number] Information: [id number] (76879) Immature Grans (Abs) 0.0 {x10E3/uL} (Normal) Range: [...] Qn, 24-Hr Comments: PATIENT NOT FASTINGPERFORMED BY: [employer] Apxvnb6258 [facility] [id number] Information: ADD [id number] AND DRAW FEE 99 6660 VOLUME 2600 164LBS 5' '3 Urine Prot,24hr calculated 920.4 {mg/24_hr} Range: 30.0-150.0 (Abnormal) Protein,Total,Urine 35.4 mg/dL Range: 0.0-15.0 (Abnormal) : Written Authorization WAR (Normal) Comments: PATIENT NOT FASTINGPERFORMED BY: LabCoUniversity HospitalOpgbxj3591 [facility] [id number] Comments: Written Authorization Received.Authorization received from Chiqui BRICEÑO LPN [id number] by Marleen Sharma :52 Metabolic Panel, Basic Comments: PATIENT NOT FASTINGPERFORMED BY: [facility] SP[facility]TSM[facility] Gdvogd2333 [facility] [id number] Information: ADD [id number] AND DRAW FEE 99 6660 VOLUME 2600 164LBS 5' '3 (64933) Calcium, Serum 9.7 mg/dL (Normal) Range: 8.6-10.2 [...] mg/dL (Abnormal) Range: 65-99 :52 CREATININE CLEARANCE (10815) Comments: PATIENT NOT FASTINGPERFORMED BY: [facility] SPORTSKalamazoo Psych[facility] Hospital6370 [facility] [id number] Creatinine Clearance 46 mL/min (Abnormal) Range: 88-128 Comments: The above range is based on 1.73 square meter average body surfacearea. Creatinine, Ur 24hr 899.6 {mg/24_hr} (Normal) Range: 800.0-1800.0 Creatinine, Urine 34.6 mg/dL (Normal) Range: 15.0-278.0 :52 24 hour urine for Protein Comments: PATIENT NOT FASTINGPERFORMED BY: [facility]TSKal[facility] Hospital6370 [facility] [id number] (18029) Microalb/Creat Ratio 695.4 {mg/g_creat} (Abnormal) Range: 0.0-30.0 Microalbumin, Urine 240.6 ug/mL (Abnormal) Range: 0.0-17.0 :13 HgA1C , Office (91447) HgA1C , Office 6.3 % (Normal) Range: 4.6 - 7.1 :01 Blood Glucose , Office (81251) Blood Glucose , Office 162 (Normal) 23-Mqd-121700:02 Microscopic Examination Comments: PATIENT NOT FASTINGPERFORMED BY: LabKalamazoo Psych[facility] Hospital6370 [facility] [id number] Bacteria Few (Normal) Mucus Threads Present (Normal) [...] Hebert M.D.October 19, 2012 at 2:42:14 PM [id number] Signed GP/GP If you are the referring physician and would like to consult [facility] theradiologist who provided this interpretation, please contact Yasmany Pond at [phone]. If this radiologist is unavailable, youwill be directed to another radiologist to assist. If y ou are a patient with a question regarding this report, pleasecontactyour referring physician directly. Professional Interpretation Provided By: [employer], Phone , These documents contain legally protected [...] 10/19/12 1444 Sign by: Misael Hebert MD 22-Qfl-980918:59 TSH (70815) Comments: PATIENT WAS FASTINGPERFORMED BY: [facility] BioelectronicsVidant Pung[facility] Hospital [id number] TSH 1.230 {uIU/mL} (Normal) Range: 0.450-4.500 02-Avh-356957:59 LIPID PANEL (83146) Comments: PATIENT WAS FASTINGPERFORMED BY: [employer]70 [employer] [facility] [id number] LDL/HDL Ratio 0.5 {ratio_units} (Normal) Range: 0.0-3.2 LDL Cholesterol Calc 47 mg/dL (Normal) Range: 0-99 Cholesterol, Total 149 mg/dL (Normal) Range: 100-199 HDL Cholesterol 91 mg/dL (Normal) Comments: According to ATP-III Guidelines, HDL-C >59 mg/dL is considered anegative risk factor for CHD. Triglycerides 57 mg/dL (Normal) Range: 0-149 VLDL Cholesterol Cesar 11 mg/dL (Normal) Range: 5-40 04-Nkl-671579:02 URINALYSIS, W/ MICRO Comments: PATIENT NOT FASTINGPERFORMED BY: [employer]70 [facility] [id number] Information: [id number] (31141) Microscopic Examination See below: (Normal) Nitrite, Urine Negative (Normal) Bilirubin Negative (Normal) Urobilinogen,Semi-Qn 0.2 mg/dL (Normal) Range: 0.0-1.9 Occult Blood Negative (Normal) Ketones Negative (Normal) Glucose Negative (Normal) Protein 3+ (Abnormal) WBC Esterase Negative (Normal) Appearance Clear (Normal) Urine-Color Yellow (Normal) pH 5.5 (Normal) Range: 5.0-7.5 Specific [place] 1.015 (Normal) Range: 1.005-1.030 58-Asx-550511:59 CBC WITH MANUAL DIFF Comments: PATIENT WAS FASTINGPERFORMED BY: LabCoUniversity HospitalQlakvv6350 [facility] [id number] Information: [id number] (97332) Immature Grans (Abs) 0.0 {x10E3/uL} (Normal) Range: [...] 3.77-5.28 WBC 4.8 {x10E3/uL} (Normal) Range: 3.4-10.8 58-Www-467495:59 METABOLIC PANEL, COMPREHENSIVE Comments: PATIENT WAS FASTINGPERFORMED BY: LabCoUniversity HospitalWxeteh2559 [facility] [id number] (84082) ALT (SGPT) 14 [iU]/L (Normal) Range: 0-32 [...] Glucose, Serum 104 mg/dL (Abnormal) Range: 65-99 1-Llh-079467:37 HgA1C , Office (93171) HgA1C , Office 6.0 % (Normal) Range: 4.6 - 7.1 7-Twv-096071:31 CRE CREAT 1.3 mg/dL (Abnormal) Range: 0.6-1.0 [...] Galan M.D.August 09, 2012 at 2:38:03 PM [id number] Signed PV/PV If you are the referring physician and would like to consult with theradiologist who provided this interpretation, please contact Donna Burnett M.D. at [phone]. If this radiologist is unavailable, youwillbe directed to another radiologist to assist. If you are a patient with a question regarding this report, pleasecontactyour referring physician evelyne cowan. Professional Interpretation Provided By: [employer], Phone , These documents contain legally protected [...] 08/09/12 1441 Sign by: Donna Martin MD 77-Dta-229814:31 CBC with manual diff Comments: PATIENT NOT FASTINGPERFORMED BY: LabCo Chbjmc6300 [facility] [id number] Information: [id number] (54203) Immature Grans (Abs) 0.0 {x10E3/uL} (Normal) Range: [...] 3.77-5.28 WBC 3.2 {x10E3/uL} (Abnormal) Range: 4.0-10.5 48-Epv-271979:31 Metabolic Panel, Comprehensive Comments: PATIENT NOT FASTINGPERFORMED BY: LabCoUniversity HospitalFgyzss8436 [facility] [id number] (95823) ALT (SGPT) 19 [iU]/L (Normal) Range: 0-32 [...] mg/dL (Abnormal) Range: 65-99 :31 LIPID PANEL (60489) Comments: PATIENT WAS FASTINGPERFORMED BY: [facility] BioelectronicsVidant Pung[facility] Hospital [id number] LDL/HDL Ratio 0.8 {ratio_units} (Normal) Range: 0.0-3.2 [...] MANUAL DIFF Comments: PATIENT WAS FASTINGPERFORMED BY: [employer] [facility] HospitalYabiduVidant Pung[facility] Hospital [id number] Information: [id number] (54977) Immature Grans (Abs) 0.0 {x10E3/uL} (Normal) Range: [...] PANEL, COMPREHENSIVE Comments: PATIENT WAS FASTINGPERFORMED BY: [facility]6370 [facility] [id number] (80147) ALT (SGPT) 22 [iU]/L (Normal) Range: 0-32 [...] (Abnormal) Range: 65-99 :45 HgA1C , Office (19904) HgA1C , Office 6.1 % (Normal) Range: 4.6 - 7.1 87-Pkh-040622:16 CRE CREAT 1.1 mg/dL (Abnormal) Range: 0.6-1.0 [...] Galan M.D.February 02, 2012 at 5:10:18 PM [id number] Signed PV/PV If you are the referring physician and w sarahild like to consult with theradiologist who provided this interpretation, please contact Donna Burnett M.D. at [phone]. If this radiologist is unavailable, youwillbe directed to another radiol ogist to assist. If you are a patient with a question regarding this report, pleasecontactyour referring physician directly. Professional Interpretation Provided By: [employer], Phone ,Fa x [phone] These documents contain legally protected and confidential [...] 02/02/121713 S ign by: Donna Martin MD 65-Aaz-281653:16 DEXA BONE DENSITY STUDY (HP) Radiology Report [...] Coronel M.D.January 20, 2012 at 2:43:46 PM [id number] Signed KERA/KERA If you ar e the [...] 01/20/12 1447 Sign by: David Coronel MD 87-Ueh-281057:15 BILAT SCRN DIGITAL & CAD Radiology Report [...] Coronel M.D.January 20, 2012 at 1:20:11 PM [id number] Signed KERA/KERA If you are the referring physician and would like to consult with theradiologist who provided this interpretation, please contact Yasmany Parnell at . If this radiologist is unavailable,youwill be directed to another radiologist to assist. If you are a patient with a question regarding this report, pleasecontactyour referring physician directly. Professional Interpretation Provided By: [employer], Phone , These documents contain legally protected [...] 01/20/12 1324 Sign by: David Coronel MD 1-Pqd-895100:56 PELVIC (NON ) Radiology Report See Note [...] Vuong M.D.January 10, 2012 at 8:39:09 PM [id number] Signed JOHNNY/JOHNNY If you are the referring physician and would like to consult with theradiologist who provided this inte rpretation, please contact Radha Vuong M.D. at [phone]. If this radiologist is unavailable, you will bedirected to another radiologist to assist. If you are a patient with a question regarding this r eport, pleasecontactyour referring physician directly. Professional Interpretation Provided By: [employer], Phone , PROCEDURE: ULTRASOUND OF THE FEMALE [...] Vuong M.D.January 10, 2012 at 8:40:07 PM [id number] Signed JOHNNY/JOHNNY If you are the referring physician and would like to consult with theradiologist who provided this interpretation, please contact Radha Vuong M.D. at [phone]. If this radiologist is unavailable, you will bedirected to another radiologist to assist. If you are a patient with a question regarding this report, pleasecontactyour referring ysician directly. Professional Interpretation Provided By: [employer], Phone , These documents contain legally protected [...] Dictated on 01/10/12 1309 by TATIANA VUONG [facility]DCumberland [facility] ribed on 01/11/12 1113 by ITS IMPORTSign by RADHA VUONG MD on 01/11/12 1114 Sign by: RADHA VUONG MD 34-Hjj-47813:35 MICROALBUMIN: CREATININE RATIO Comments: PATIENT WAS FASTINGPERFORMED BY: TLabs6370 [facility] [id number] (46521) AND (17714) Microalb/Creat Ratio 829.4 {mg/g_creat} (Abnormal) Range: 0.0-30.0 Microalbumin, Urine 437.1 ug/mL (Abnormal) Range: 0.0-17.0 Creatinine, Urine 52.7 mg/dL (Normal) Range: 15.0-278.0 :35 CBC WITH MANUAL DIFF Comments: PATIENT WAS FASTINGPERFORMED BY: ASSET4lin6370 [facility] [id number] Information: [id number] (81358) Immature Grans (Abs) 0.0 {x10E3/uL} (Normal) Range: [...] 3.77-5.28 WBC 3.7 {x10E3/uL} (Abnormal) Range: 4.0-10.5 62-Tqu-49457:35 METABOLIC PANEL, COMPREHENSIVE Comments: PATIENT WAS FASTINGPERFORMED BY: LabCoUniversity HospitalHtqmgv1601 [facility] [id number] (61330) ALT (SGPT) 15 [iU]/L (Normal) Range: 0-32 [...] mg/dL (Abnormal) Range: 65-99 :35 LIPID PANEL (47057) Comments: PATIENT WAS FASTINGPERFORMED BY: [facility] BioelectronicsVidant P[facility] Hospital [id number] LDL/HDL Ratio 0.9 {ratio_units} (Normal) Range: 0.0-3.2 LDL Cholesterol Calc 72 mg/dL (Normal) Range: 0-99 HDL Cholesterol 83 mg/dL (Normal) Comments: According to ATP-III Guidelines, HDL-C >59 mg/dL is considered anegative risk factor for CHD. VLDL Cholesterol Cesar 18 mg/dL (Normal) Range: 5-40 Triglycerides 90 mg/dL (Normal) Range: 0-149 Cholesterol, Total 173 mg/dL (Normal) Range: 100-199 :15 HgA1C , Office (27683) HgA1C , Office 6.2 % (Normal) Range: 4.6 - 7.1 :30 CBC WITH MANUAL DIFF Comments: PATIENT WAS FASTINGPERFORMED BY: MinervaxLos Alamos Medical CenterGxhmob5052 [facility] [id number] Information: [id number] (36701) Immature Grans (Abs) 0.0 {x10E3/uL} (Normal) Range: [...] 3.77-5.28 WBC 4.2 {x10E3/uL} (Normal) Range: 4.0-10.5 43-Nqe-26937:30 METABOLIC PANEL, COMPREHENSIVE Comments: PATIENT WAS FASTINGPERFORMED BY: LabCoUniversity HospitalJpmlep5907 [facility] [id number] (75746) ALT (SGPT) 19 [iU]/L (Normal) Range: 0-40 [...] mg/dL (Abnormal) Range: 65-99 :30 LIPID PANEL (32379) Comments: PATIENT WAS FASTINGPERFORMED BY: LabCoUniversity HospitalZknnfb9702 [facility] [id number] LDL/HDL Ratio 0.9 {ratio_units} (Normal) Range: 0.0-3.2 [...] note reference interval change :48 Rapid Flu (06696 x 2) Influenza A Ag negative (Normal) [...] redmond M.D.November 05, 2011 at 3:25:08 PM [id number] Signed GP/GP If you are the referring physician and would like to consult with theradiologist who provided this interpretation, please contact Yasmany Pond at [phone]. If this radiologist is unavailable, youwill be directed to another radiologist to assist. If you are a patient with a question regarding this report, ple asecontactyour referring physician directly. Professional Interpretation Provided By: [employer], Phone , These documents contain legally protected [...] redmond M.D.November 05, 2011 at 3:25:08 PM [id number] Signed GP/GP If you are the referring physician and would like to consult with theradiologist who provided this interpretation, please contact Yasmany Pond at [phone]. If this radiologist is unavailable, youwill be directed to another radiologist to assist. If you are a patient with a question regarding this report, ple asecontactyour referring physician directly. Professional Interpretation Provided By: [employer], Phone , These documents contain legally protected [...] on 11/05/111551 Sign by: Misael Hebert MD 19-Ekq-032905:20 METABOLIC PANEL, Comments: PATIENT WAS FASTINGPERFORMED BY: LabCoUniversity HospitalPhbreo6617 [facility] [id number] Information: [id number],2ND ORDER NO DRAW F COMPREHENSIVE (56449) ALT (SGPT) 31 [iU]/L (Normal) Range: 0-40 [...] Creatinine Clearance Comments: PATIENT WAS FASTINGPERFORMED BY: [employer]University HospitalSjotoy4189 [facility] [id number] Information: 10/30@6AM 10/31@730AM Creatinine Clearance 58 mL/min [...] Qn, 24-Hr Comments: PATIENT WAS FASTINGPERFORMED BY: [employer]University HospitalTizbnw3256 [facility] [id number] Urine Prot,24hr calculated 1023.8 {mg/24_hr} (Abnormal) Range: 30.0-150.0 Protein,Total,Urine 52.5 mg/dL (Abnormal) Range: 0.0-15.0 :04 HgA1C , Office (43941) HgA1C , Office 6.1 % (Normal) Range: [...] regarding this repor t, please call our [id number] line @ Dictated on 07/27/11 1040 by GAYE PEREZ MDscribed on 07/28/111224 by ITS IMPORTSign by GAYE PEREZ MD on 07/28/111224 Sign by: GAYE PEREZ MD :54 Vitamin D Hydroxy (95675) Comments: PATIENT WAS FASTINGPERFORMED BY: TLabs6370 [facility] [id number] Vitamin D, 25-Hydroxy 48.8 ng/mL (Normal) Range: 30.0-100.0 Comments: Vitamin D deficiency has been defined by the [place] of[place]icine and an Endocrine Society practice guideline as alevel of serum 25-OH vitamin D less than 20 ng/mL (1,2).The Endocrine Society went on to further define vitamin Dinsufficiency as a level between 21 and 29 ng/mL (2).1. IOM ([place] of Medicine). 2010. Dietary reference intakes for calcium and D. [place]: The National Academies Press.2. Mira MF, Rosette NC, Tommy SWAIN, et al. Evaluation, treatment, and prevention of vitamin D deficiency: an Endocrine Society clinical practice guideline. JCEM. 2010; 96(7):1911-30. :54 LIPID PANEL (97350) Comments: PATIENT WAS FASTINGPERFORMED BY: TLabs6370 [facility] [id number] LDL/HDL Ratio 1.0 {ratio_units} (Normal) Range: 0.0-3.2 [...] MANUAL DIFF Comments: PATIENT WAS FASTINGPERFORMED BY: [facility] [employer] LabFrontback6370 [facility] [id number] Information: ADD [id number] AND DRAW FEE 99 5140 (48876) Immature Grans (Abs) 0.0 {x10E3/uL} (Normal) Range: [...] 3.77-5.28 WBC 4.3 {x10E3/uL} (Normal) Range: 4.0-10.5 95-Jpe-54213:54 METABOLIC PANEL, COMPREHENSIVE Comments: PATIENT WAS FASTINGPERFORMED BY: LabCoUniversity HospitalVgftdd3795 [facility] [id number] (23968) ALT (SGPT) 48 [iU]/L (Abnormal) Range: 0-40 [...] (Abnormal) Range: 65-99 :18 HgA1C , Office (64092) HgA1C , Office 6.1 % (Normal) Range: 4.6 - 7.1 :18 Blood Glucose , Office (01805) Blood Glucose , Office 103 (Normal) 07-Uyv-42087:00 ABDOMEN WITH AND W/O CONTRAST Radiology Report [...] radiologist regarding this report, please call our [id number] line @ Dictated on 03/18/11 1715 by Keaton MANN,JennieieTranscribed on 03/22/11 1401 by ITS IMPORTSign by Jeanette Hill MD on 03/22/11 1402 Sign by: Jeanette Pugh MD 21-Kon-482355:29 SERUM CRE & GFR CREAT,SERUM 1.1 mg/dL (Abnormal) Range: 0.6-1.0 34-Kfw-18687:00 BRAIN W/WO CONTRAST Radiology Report See Note [...] seen in the right frontal white matter poultry pathologist ior to themasswithout interval change. The cortical [...] 03/02/11 173 Sign by: Donna Martin MD 49-Kjd-75446:00 UPPER EXT. JOINT ONLY(ROUTINE) Radiology Report See [...] on 03/04/11 1035 Sign by: Ankur Duncan 65-Njy-443384:08 SHOULDER,MIN 2 VIEWS Radiology Report See Note [...] 02/01/11 1021 Sign by: ALEJANDRO DRUMMOND DO 35-Jkz-877324:57 SINUS/FACIAL BONE Radiology Report See Note (Normal) [...] 01/19/11 1447 by ITS IMPORTSign by Misael eHbert MD on 01/19/11 1448 Sign by: Misael Hebert MD 82-Rnz-75018:00 BRAIN W/WO CONTRAST Radiology Report See Note [...] addition, there is a small region of dbfumbjkcC0swvaqqnstg along the anterior margin of the mass, [...] on 01/19/111650 Sign by: GAYE PEREZ MD 44-Iff-85194:00 BRAIN/HEAD W/WO CONTRAST Radiology Report See Note [...] 01/19/11 1447 Sign by: Misael Hebert MD 31-Fye-275490:08 BILAT SCRN DIGITAL & CAD Radiology Report [...] CREATININE RATIO Comments: PATIENT NOT FASTINGPERFORMED BY: LabCoUniversity HospitalWdjawk7154 [facility] [id number] (89022) AND (25830) Microalb/Creat Ratio 1028.4 {mg/g_creat} (Abnormal) Range: 0.0-30.0 Microalbumin, Urine 1341.0 ug/mL (Abnormal) Range: 0.0-17.0 Creatinine, Urine 130.4 mg/dL (Normal) Range: 15.0-278.0 :20 CBC WITH MANUAL DIFF (76529) Comments: PATIENT NOT FASTINGPERFORMED BY: LabCoUniversity HospitalDaiemd6875 [facility] [id number] Immature Grans (Abs) 0.0 {x10E3/uL} (Normal) Range: [...] {x10E3/uL} (Normal) Range: 4.0-10.5 :20 LIPID PANEL (76113) Comments: PATIENT NOT FASTINGPERFORMED BY: GiveSurance6370 [facility] [id number] LDL/HDL Ratio 0.9 {ratio_units} (Normal) Range: 0.0-3.2 [...] PANEL, COMPREHENSIVE Comments: PATIENT NOT FASTINGPERFORMED BY: [employer]6370 [facility] [id number] (50547) ALT (SGPT) 28 [iU]/L (Normal) Range: 0-40 [...] (Abnormal) Range: 65-99 :39 HgA1C , Office (54936) HgA1C , Office 6.5 % (Normal) Range: 4.6 - 7.1 :39 Blood Glucose , Office (75974) Blood Glucose , Office 128 (Normal) :19 CBC With Differential/Platelet Comments: PATIENT WAS FASTINGPERFORMED BY: LabCo Blstoz7586 [facility] [id number] Immature Grans (Abs) 0.0 {x10E3/uL} (Normal) Range: [...] 3.80-5.10 WBC 5.6 {x10E3/uL} (Normal) Range: 4.0-10.5 7-Fdg-757942:19 Comp. Metabolic Panel (14) Comments: PATIENT WAS FASTINGPERFORMED BY: LabCoUniversity HospitalHyjuso2060 [facility] [id number]; appt 01/11/11 ALT (SGPT) 18 [iU]/L (Normal) [...] Glucose, Serum 113 mg/dL (Abnormal) Range: 65-99 3-Mgg-062359:19 Lipid Panel With LDL/HDL Comments: PATIENT WAS FASTINGPERFORMED BY: TLabs6370 [facility] [id number] Ratio LDL/HDL Ratio 1.0 {ratio_units} Range: 0.0-3.2 [...] 0.800 {uIU/mL} Comments: PATIENT WAS FASTINGPERFORMED BY: [facility] Qfwahc0780 [facility] [id number] 2:19 (Normal) Range: 0.450-4.500 Vitamin D, 25-Hydroxy 44.0 ng/mL (Normal) Comments: PATIENT WAS FASTINGPERFORMED BY: [facility] Syjpud5493 [facility] [id number] 2:19 Range: 32.0-100.0 Comments: Effective February 22, 2011 Vitamin D, 25-Hydroxy reference intervals will be changing to 30-100. .Recent studies consider the lower li sandra of 32.0 ng/mL to be athreshold for optimal health.Otf HAYES. J Nutr. 2004;135(2):317-22. 62-Wjt-329150:54 HgA1C , Office (42031) HgA1C , Office 6.6 % (Normal) Range: 4.6 - 7.1 :54 Blood Glucose , Office (55948) Blood Glucose , Office 134 (Normal) :40 Creatinine Clearance Comments: PERFORMED BY: [employer] Ybaewr7586 [facility] [id number] Information: 10/07@7AM 10/08@3AM Creatinine Clearance 56 mL/min [...] Protein Total, Qn, 24-Hr Comments: PERFORMED BY: [employer] Zeacpv9713 [facility]byJAZD MarketsVidant [facility] [id number] Urine Prot,24hr calculated 610.5 {mg/24_hr} (Abnormal) Range: 30.0-150.0 Protein,Total,Urine 40.7 mg/dL (Abnormal) Range: 0.0-15.0 :46 Vitamin D Hydroxy (44463) Comments: PATIENT WAS FASTINGPERFORMED BY: [employer] Hxgdkb0867 [facility] [id number] Vitamin D, 25-Hydroxy 36.5 ng/mL (Normal) Range: 32.0-100.0 Comments: Recent studies consider the lower limit of 32.0 ng/mL to be athreshold for optimal health.Otf HAYES. J Nutr. 2004;135(2):317-22. :46 METABOLIC PANEL, COMPREHENSIVE Comments: PATIENT WAS FASTINGPERFORMED BY: [employer] Gyrewp7410 [facility] [id number] (39880) ALT (SGPT) 34 [iU]/L (Normal) Range: 0-40 [...] Glucose, Serum 116 mg/dL (Abnormal) Range: 65-99 2-Svn-238257:46 LIPID PANEL (04516) Comments: PATIENT WAS FASTINGPERFORMED BY: LabCoUniversity HospitalYpgxph0003 [facility] [id number] LDL Cholesterol Calc 85 mg/dL (Normal) Range: 0-99 LDL/HDL Ratio 1.2 {ratio_units} (Normal) Range: 0.0-3.2 VLDL Cholesterol Cesar 28 mg/dL (Normal) Range: 5-40 HDL Cholesterol 69 mg/dL (Normal) Comments: According to ATP-III Guidelines, HDL-C >59 mg/dL is considered anegative risk factor for CHD. Cholesterol, Total 182 mg/dL (Normal) Range: 100-199 Triglycerides 141 mg/dL (Normal) Range: 0-149 2-Yvg-022850:46 CBC WITH MANUAL DIFF Comments: PATIENT WAS FASTINGPERFORMED BY: LabCo Ftssyd8915 [facility] [id number] Information: [id number]; appt 10/12/10 (82467) Immature Grans (Abs) 0.0 {x10E3/uL} (Normal) Range: [...] (Normal) Range: 4.0-10.5 :07 HgA1C , Office (77545) HgA1C , Office 6.6 % (Normal) Range: 4.6 - 7.1 :07 Blood Glucose , Office (31537) Blood Glucose , Office 114 (Normal) 18-Mls-569450:00 Creatinine Clearance Comments: PERFORMED BY: [employer] Freedom2 [facility] [id number] Information: 12/31@8AM 01/01@4AM Creatinine Clearance 48 mL/min [...] Creatinine, Serum 1.20 mg/dL (Abnormal) Range: 0.57-1.00 89-Nih-375030:00 Protein Total, Qn, 24-Hr Comments: PERFORMED BY: [employer]University HospitalBwgwzy7370 [facility] [id number] Urine Prot,24hr calculated 1070.6 {mg/24_hr} (Abnormal) Range: 30.0-150.0 Protein,Total,Urine 79.3 mg/dL (Abnormal) Range: 0.0-15.0 84-Abo-140794:48 BILAT SCRN DIGITAL & CAD Radiology Report See Note (Normal) Comments: Exam Number: [id number] MAMMOGRAPHY - BILATERAL SCREENING INDICATION:Routine annual screening [...] of attaching a ResultCode to this exam.ADDENDUM: [id number] HPBI/MDS Reported By: MISAEL HEBERT 75-Mum-959143:48 DEXA BONE DENSITY STUDY (HP) Radiology Report See Note (Normal) Comments: Exam Number: [id number] CLINICAL:This is a 69-year-old female patient with postmenopausal screening. EXAMINATION:DUAL ENERGY X-RAY ABSORPTIOMETRY / DEXA. TECHNIQUE:Bone Density Measurements (BMD) of lumb ar spine and bilateral hipswere obtained using a Exeros scanner.. COMPARISON:None. FINDINGS: Lumbar Spine (L1-L4): g/cm2 [...] Osteoporosis Foundation http://www.nof.org Reported By: MISAEL HEBERT 20-Ajo-025920:29 HgA1C , Office (79849) HgA1C , Office 6.5 % (Normal) Range: 4.6 - 7.1 72-Qml-214577:29 Blood Glucose , Office (60342) Blood Glucose , Office 109 (Normal) 11-Bjr-64591:05 CBC With Differential/Platelet Comments: PATIENT WAS FASTINGPERFORMED BY: [facility] Tpbqqe8211 [facility] [id number] Immature Grans (Abs) 0.0 {x10E3/uL} (Normal) Range: [...] 3.80-5.10 WBC 3.9 {x10E3/uL} (Abnormal) Range: 4.0-10.5 64-Rzu-99882:05 Comp. Metabolic Panel (14) Comments: PATIENT WAS FASTINGPERFORMED BY: LabCo Onwcjb0967 [facility] [id number] ALT (SGPT) 20 [iU]/L (Normal) Range: 0-40 [...] With LDL/HDL Comments: PATIENT WAS FASTINGPERFORMED BY: [employer]70 [employer] [facility] [id number] Ratio HDL Cholesterol 54 mg/dL (Normal) Comments: [...] ng/mL (Normal) Comments: PATIENT WAS FASTINGPERFORMED BY: [facility] Dbwfxr7980 [facility] [id number] :05 Range: 32.0-100.0 Comments: Recent studies consider the lower limit of 32.0 ng/mL to be athreshold for optimal health.Otf HAYES. J Nutr. 2004;135(2):317-22. :41 SPLEEN (HP) Radiology Report See Note (Normal) Comments: Exam Number: [id number] ULTRASOUND OF THE SPLEEN A goal directed [...] Protein, 0.5 mg/L (Normal) Comments: PERFORMED BY: [employer] Kkvymu1836 [facility] [id number] 10:54 Quant Range: 0.0-4.9 17-Jun-2009 Hemoglobin A1c 6.3 % (Abnormal) Comments: PERFORMED BY: [employer] Qdyqsu5471 [facility] [id number] 10:54 Range: 4.8-5.6 Comments: Increased risk for diabetes: 5.7 - 6.4Diabetes: >6.4Glycemic control for adults with diabetes: <7.0.Please note reference interval change 17-Jun-2009 Sedimentation 4 mm/h (Normal) Comments: PERFORMED BY: [employer] Freedom2 [facility] [id number] 10:54 Rate-Westergren Range: 0-30 17-Jun-2009 Vitamin B12 1372 pg/mL Comments: PERFORMED BY: [employer]70 [facility] [id number] 10:54 (Abnormal) Range: 211-911 Comments: Effective July 14, 2009, Vitamin B12 will bechanging to the [place] ECLIA methodology. Thereference interval will be changing to:211 - 946 pg/mL 17-Jun-2009 Vitamin D, 25-Hydroxy 37.7 ng/mL Comments: PERFORMED BY: [employer] Bsnbid9455 [facility] [id number] 10:54 (Normal) Range: 32.0-100.0 Comments: Recent studies consider the lower limit of 32.0 ng/mL to be athreshold for optimal health.Otf HAYES. J Nutr. 2004;135(2):317-22. 01-Nwj-888383:34 Vitamin D Hydroxy Comments: PATIENT NOT FASTINGPERFORMED BY: [employer] Gqzpmf5362 [facility] [id number] Information: E84242,2ND ORDER NO DRAW F EE (44894) Vitamin D, 25-Hydroxy 48.5 ng/mL (Normal) Range: 30.0-100.0 Comments: Vitamin D deficiency has been defined by the [place] of[place]icine and an Endocrine Society practice guideline as alevel of serum 25-OH vitamin D less than 20 ng/mL (1,2).The Endocrine Society went on to further define vitamin Dinsufficiency as a level between 21 and 29 ng/mL (2).1. IOM ([place] of Medicine). 2010. Dietary reference intakes for calcium and D. [place]: The National Academies Press.2. Mira MF, Rosette LOPEZ, Tommy SWAIN, et al. Evaluation, treatment, and prevention of vitamin D deficiency: an Endocrine Society clinical practice guideline. JCEM. 2010; 96(7):1911-30. :50 HgA1C , Office (77297) HgA1C , Office 6.7 % (Normal) Range: 4.6 - 7.1 :50 Blood Glucose , Office (24410) Blood Glucose , Office 117 (Normal) 63-Jcx-463799:12 CBC With Differential/Platelet Comments: PERFORMED BY: LabCoUniversity HospitalSuuqhi5427 [facility] [id number] Information: 06/10@6AM3/10@330AM Hematology Comments: Note: (Normal) Comments: [...] 3.80-5.10 WBC 3.6 {x10E3/uL} (Abnormal) Range: 4.0-10.5 41-Peq-357029:12 Comp. Metabolic Panel (14) Comments: PERFORMED BY: [facility]6370 [facility] [id number] Alkaline Phosphatase, S 68 [iU]/L (Normal) Range: [...] Glucose, Serum 124 mg/dL (Abnormal) Range: 65-99 61-Rjx-179731:12 Creatinine Clearance Comments: PERFORMED BY: [facility] BioelectronicsVid[facility] [id number] Creatinine Clearance 49 mL/min (Abnormal) Range: 88-128 Comments: The above range is based on 1.73 square meter average body surfacearea. Creatinine, Ur 24hr 800.0 {mg/24_hr} (Normal) Range: 800.0-1800.0 Creatinine, Urine 40.0 mg/dL (Normal) Range: 15.0-278.0 61-Qwm-880399:12 Lipid Panel With LDL/HDL Comments: PERFORMED BY: [facility] BioelectronicsV[facility] [id number] Ratio HDL Cholesterol 61 mg/dL (Normal) Comments: According to ATP-III Guidelines, HDL-C >59 mg/dL is considered anegative risk factor for CHD. LDL Cholesterol Calc 74 mg/dL (Normal) Range: 0-99 LDL/HDL Ratio 1.2 {ratio_units} (Normal) Range: 0.0-3.2 VLDL Cholesterol Cesar 17 mg/dL (Normal) Range: 5-40 Cholesterol, Total 152 mg/dL (Normal) Range: 100-199 Triglycerides 87 mg/dL (Normal) Range: 0-149 43-Jxs-925913:12 Protein Total, Qn, 24-Hr Comments: PERFORMED BY: [facility] BioelectronicsV[facility] [id number] Urine Prot,24hr calculated 1172.0 {mg/24_hr} Range: 30.0-150.0 (Abnormal) Protein,Total,Urine 58.6 mg/dL (Abnormal) Range: 0.0-15.0 TSH 1.280 {uIU/mL} Comments: PERFORMED BY: [employer]ATH[employer] R[employer] SPORTSCoUniversity HospitalKyvzzm9109 [facility] [id number] 1:12 (Normal) Range: 0.450-4.500 :58 HgA1C , Office (12414) HgA1C , Office 6.0 % (Normal) Range: 4.6 - 7.1 :58 Blood Glucose , Office (20625) Blood Glucose , Office 113 (Normal) :03 CBC With Differential/Platelet Comments: PATIENT WAS FASTINGPERFORMED BY: [employer]University HospitalIkymxp6646 [facility] [id number] Baso (Absolute) 0.0 {x10E3/uL} (Normal) Range: 0.0-0.2 [...] 11.7-15.0 WBC 3.2 {x10E3/uL} (Abnormal) Range: 4.0-10.5 5-Qgn-894436:03 Comp. Metabolic Panel (14) Comments: PATIENT WAS FASTINGPERFORMED BY: LabCoUniversity HospitalCifuww0108 [facility] [id number] A/G Ratio 2.0 (Normal) Range: 1.1-2.5 Albumin, [...] Glucose, Serum 116 mg/dL (Abnormal) Range: 65-99 6-Eic-822563:03 Lipid Panel With LDL/HDL Comments: PATIENT WAS FASTINGPERFORMED BY: [employer]70 [facility]sV[facility] [id number] Ratio Cholesterol, Total 167 mg/dL (Normal) Range: [...] ng/mL (Normal) Comments: PATIENT WAS FASTINGPERFORMED BY: [employer]70 [facility] [id number] :03 Range: 32.0-100.0 Comments: Recent studies consider the lower limit of 32.0 ng/mL to be athreshold for optimal health.Otf HAYES. J Nutr. 2004;135(2):317-22. 23-Yzc-392446:32 Urinalysis, Office (89804) UA - BILIRUBIN Negative (Normal) UA - BLOOD Hemolyzed Trace (Normal) UA - GLUCOSE Negative (Normal) UA - KETONES Negative mg/dL (Normal) UA - LEUKOCYTE ESTERASE Negative (Normal) UA - NITRITE Negative (Normal) UA - PH 6.5 (Normal) UA - PROTEIN 300 mg/dL (Normal) UA - SPECIFIC GRAVITY 1.020 (Normal) URINE UROBILINGN JATINDER TIMED 2 mg/dL (Normal) 2-Dkm-152255:19 URINE SETH CULTURE-JATINDER COL Comments: PATIENT NOT FASTINGClinical Information: SRC:UR ADD [id number] PERFORMED BY: [employer]70 [facility] [id number] COUNT (39357) Result 1 ECV (Normal) Comments: Escherichia coli, [...] report (Normal) Culture,Comprehensiv e 09-Jan-20098:17 Urinalysis, Office (26697) UA - BILIRUBIN Negative (Normal) UA - BLOOD Hemolyzed Large (Normal) UA - GLUCOSE Negative (Normal) UA - KETONES Negative mg/dL (Normal) UA - LEUKOCYTE ESTERASE Moderate (Normal) UA - NITRITE Negative (Normal) UA - PH 7.0 (Normal) UA - PROTEIN 300 mg/dL (Normal) UA - SPECIFIC GRAVITY 1.020 (Normal) URINE UROBILINGN JATINDER TIMED 2 mg/dL (Normal) 0-Tpy-981465:05 Comp. Metabolic Panel (14) Comments: PATIENT WAS FASTINGPERFORMED BY: LabCoUniversity HospitalXvvzky8565 [facility] [id number] A/G Ratio 1.7 (Normal) Range: 1.1-2.5 Albumin, [...] Panel (7) Comments: PATIENT WAS FASTINGPERFORMED BY: [employer] [facility] [id number] Bilirubin, Direct 0.12 mg/dL (Normal) Range: 0.00-0.40 :05 Lipid Panel With LDL/HDL Comments: PATIENT WAS FASTINGPERFORMED BY: [employer] [facility] [id number] Ratio Cholesterol, Total 170 mg/dL (Normal) Range: [...] mg/dL (Normal) Comments: PATIENT WAS FASTINGPERFORMED BY: [employer] [facility] [id number] :05 Range: 2.5-4.5 PTH, Intact 19 pg/mL (Normal) Comments: PATIENT WAS FASTINGPERFORMED BY: TLabs6370 [facility] [id number] :05 Range: 15-65 Vitamin D, 25-Hydroxy 38.9 ng/mL (Normal) Comments: PATIENT WAS FASTINGPERFORMED BY: [facility]6370 [facility] [id number] :05 Range: 32.0-100.0 Comments: Recent studies consider the lower limit of 32.0 ng/mL to be athreshold for optimal health.Otf HAYES. J Nutr. 2004;135(2):317-22. :40 HgA1C , Office (00044) HgA1C , Office 6.0 % (Normal) Range: 4.6 - 7.1 :40 Blood Glucose , Office (56575) Blood Glucose , Office 109 (Normal) :42 CBC With Differential/Platelet Comments: PATIENT WAS FASTINGPERFORMED BY: [facility]6370 [facility] [id number] Baso (Absolute) 0.0 {x10E3/uL} (Normal) Range: 0.0-0.2 [...] 11.7-15.0 WBC 4.2 {x10E3/uL} (Normal) Range: 4.0-10.5 52-Vbl-915594:42 Comp. Metabolic Panel (14) Comments: PATIENT WAS FASTINGPERFORMED BY: LabCoUniversity HospitalJiusee2687 [facility] [id number] A/G Ratio 1.6 (Normal) Range: 1.1-2.5 Albumin, [...] Sodium, Serum 140 mmol/L (Normal) Range: 135-145 9-Nkp-034580:09 FECAL OCCULT HGB ASSAY, QUAL, 1-3 SIMULTANEOUS DETERMINATIONS (02800) FECAL OCCULT HGB ASSAY, QUAL, 1-3 SIMULTANEOU neg (Normal) :42 Microscopic Examination Comments: PATIENT WAS FASTINGPERFORMED BY: [facility] BioelectronicsVidant P[facility] Hospital [id number] Bacteria None seen (Normal) Cast Type Hyaline casts (Normal) Casts Present {/lpf} (Abnormal) Epithelial Cells (non renal) 0-10 {/hpf} (Normal) Range: 0 - 10 Mucus Threads Present (Normal) RBC 0-3 {/hpf} (Normal) Range: 0 - 3 WBC 0-5 {/hpf} (Normal) Range: 0 - 5 :42 URINALYSIS W/O MICRO (55692) Comments: PATIENT WAS FASTINGPERFORMED BY: [facility] BioelectronicsVidant [facility] [id number] Appearance Clear (Normal) Bilirubin Negative (Normal) Glucose Negative (Normal) Ketones Negative (Normal) Microscopic Examination See below: (Normal) Nitrite, Urine Negative (Normal) Occult Blood Negative (Normal) pH 5.0 (Normal) Range: 5.0-7.5 Protein 1+ (Abnormal) Specific [place] 1.013 (Normal) Range: 1.005-1.030 Urine-Color Yellow (Normal) Urobilinogen,Semi-Qn 0.2 mg/dL (Normal) Range: 0.0-1.9 WBC Esterase 1+ (Abnormal) :42 MICROALBUMIN: CREATININE RATIO Comments: PATIENT WAS FASTINGPERFORMED BY: [facility] BioelectronicsVidant [facility] Hospital [id number] (38528) AND (49517) Creatinine, Urine 76.1 mg/dL (Normal) Range: 15.0-278.0 Microalb/Creat Ratio 292.1 {ug/mg_creat} (Abnormal) Range: 0.0-30.0 Microalbumin, Urine 222.3 ug/mL (Abnormal) Range: 0.0-17.0 :42 CBC WITH MANUAL DIFF (96488) Comments: PATIENT WAS FASTINGClinical Information: ADD DRAW FEE [id number] ADD J 10312 PERFORMED BY: [employer] [facility] [id number] Baso (Absolute) 0.0 {x10E3/uL} (Normal) Range: 0.0-0.2 [...] PANEL, COMPREHENSIVE Comments: PATIENT WAS FASTINGPERFORMED BY: LabCoUniversity HospitalMjjftr5955 [facility] [id number] (39419) A/G Ratio 1.8 (Normal) Range: 1.1-2.5 Albumin, [...] Sodium, Serum 141 mmol/L (Normal) Range: 135-145 0-Kdo-496720:23 HgA1C , Office (31189) HgA1C , Office 6.0 % (Normal) Range: 4.6 - 7.1 7-Bfz-922922:23 Blood Glucose , Office (41993) Blood Glucose , Office 103 (Normal) 36-Pkf-402672:38 CBC WITH MANUAL DIFF (72043) Comments: PATIENT WAS FASTINGClinical Information: ADD DRAW FEE [id number] ADD J 78567 PERFORMED BY: EVE [employer] SPORTSCo Xjqqfm1239 [facility] [id number] Baso (Absolute) 0.0 {x10E3/uL} (Normal) Range: 0.0-0.2 [...] 11.7-15.0 WBC 4.0 {x10E3/uL} (Normal) Range: 4.0-10.5 60-Wvn-997457:38 METABOLIC PANEL, COMPREHENSIVE Comments: PATIENT WAS FASTINGPERFORMED BY: [employer]ATH[employer] SPORTSCoUniversity HospitalIvnkvf94[address] [place] [address] [id number] (16420) A/G Ratio 1.8 (Normal) Range: 1.1-2.5 Albumin, [...] Sodium, Serum 142 mmol/L (Normal) Range: 135-145 06-Wuc-382194:38 HEPATIC FUNCTION PANEL Comments: PATIENT WAS FASTINGPERFORMED BY: [facility] Eusqhm8876 [facility] [id number] (10301) Bilirubin, Direct 0.08 mg/dL (Normal) Range: 0.00-0.40 12-Yty-702347:38 LIPID PANEL (32546) Comments: PATIENT WAS FASTINGPERFORMED BY: [facility] Xgsqbf9743 [facility] [id number] Cholesterol, Total 200 mg/dL (Abnormal) Range: 100-199 [...] (Normal) Range: 5-40 :36 HgA1C , Office (94185) HgA1C , Office 6.1 % (Normal) Range: 4.6 - 7.1 :36 Blood Glucose , Office (93805) Blood Glucose , Office 98 (Normal) :33 CBC With Differential/Platelet Comments: PATIENT WAS FASTINGClinical Information: SRC:UR PERFORMED BY: [facility] [id number] Baso (Absolute) 0.0 {x10E3/uL} (Normal) Range: 0.0-0.2 [...] 11.7-15.0 WBC 4.8 {x10E3/uL} (Normal) Range: 4.0-10.5 19-Yqi-601343:33 Comp. Metabolic Panel (14) Comments: PATIENT WAS FASTINGPERFORMED BY: LabCoUniversity HospitalNzyfbl6006 [facility] [id number] A/G Ratio 1.6 (Normal) Range: 1.1-2.5 Albumin, [...] Serum 92 mg/dL (Normal) Range: 65-99 If -Mauritanian 57 mL/min/1.73 Comments: Note: Persistent reduction for [...] With LDL/HDL Comments: PATIENT WAS FASTINGPERFORMED BY: [employer]University HospitalImqbrg4125 [facility] [id number] Ratio Cholesterol, Total 174 mg/dL (Normal) Range: [...] Urine Culture,Comprehensive Comments: PATIENT WAS FASTINGPERFORMED BY: [employer]University HospitalWkurbb3714 [facility] [id number] Antimicrobial MIHEAD (Normal) Comments: S = Susceptible; [...] Enterococcus. (Normal) Urine Final report (Normal) Culture,Comprehensive 9-Eaa-404446:10 HgA1C , Office (30900) HgA1C , Office 5.9 % (Normal) Range: [...] mL (Normal) URINE PROTEIN 20.0 mg/dL (Abnormal) 76-Pvf-775504:17 Urine Culture,Comprehensive Comments: Clinical Information: SRC:UR PERFORMED BY: [facility] [id number] Result 1 CNSNSS (Normal) Comments: Coagulase negative Staphylococcus species, not Staphylococcussaprophyticus.600 Colonies/mLSusceptibility or resistance of staphylococci to oxacillin predictssusceptibility or resistance to (a) other be nw-jdmfnxonc-wafmfglzcuwnwulsx such as cloxacillin and dicloxacillin, (b) combinationsof a penicillin and a beta-lactamase inhibitor, and(c) anti- staphylococcal cephalosporins. Routine testing of otherp enicillins, beta-lactam/beta-lactamase inhibitor combinations,cephems, and carbapenems is not advised by the CLSI Standards(C959-P27, 2005). S = Susceptible; I = Intermediate; R = Resistant * P = Positive; N = Negative MICS are expressed in micrograms per mL Antibiotic RSLT#1 RSLT#2 RSLT#3 RSLT#4Ciprofloxacin RGentami kristian SLevofloxacin RNitrofurantoin SOxacillin SPenicillin RRifampin STrimethoprim/Sulfa SVancomycin S Urine Final report Culture,Comprehensi (Normal) ve :53 Metabolic Panel, Basic (43627) Comments: PATIENT NOT FASTINGClinical Information: ADD DRAW FEE [id number] ADD J 14034 PERFORMED BY: [facility] Tqizeh5297 [facility] [id number] BUN 39 mg/dL (Abnormal) Range: 5-26 BUN/Creatinine Ratio 33 (Abnormal) Range: 8-27 Calcium, Serum 9.8 mg/dL (Normal) Range: 8.5-10.6 Carbon Dioxide, Total 22 mmol/L (Normal) Range: 20-32 Chloride, Serum 103 mmol/L (Normal) Range: 97-108 Creatinine, Serum 1.20 mg/dL (Abnormal) Range: 0.57-1.00 Glom Filt Rate, Est 45 mL/min/1.73 Range: 60-128 (Abnormal) Glucose, Serum 101 mg/dL (Abnormal) Range: 65-99 If -Mauritanian 55 mL/min/1.73 Range: 60-128 (Abnormal) Comments: Note: Persistent reduction for 3 months or more in an eGFR<60 mL/min/1.73 m2 defines CKD. Patients with eGFR values>/=60 mL/min/1.73 m2 may also have CKD if evidence of persistentproteinuria is present. Additional information may be found [email or web address]. Potassium, Serum 5.1 mmol/L (Normal) Range: 3.5-5.2 Sodium, Serum 139 mmol/L (Normal) Range: 135-145 :09 HgA1C , Office (80023) HgA1C , Office 6.1 % (Normal) Range: 4.6 - 7.1 :09 Blood Glucose , Office (78586) Blood Glucose , Office 163 (Normal) :37 SPINE,LUMBAR (ROUTINE) Radiology Report See Note (Normal) Comments: Exam Number: [id number] MRI LUMBAR SPINE CLINICAL STATEMENTLow back pain [...] onboth sides. Reported By: MODESTA COPE M.D. 21-Imz-597395:00 [facility] Radiology Report See Note (Normal) Comments: Exam Number: [id number] MAMMOGRAM, BILATERAL SCREENING DIGITAL AND CAD HISTORYRoutine screening. Full field digital images were obtained in mediolateral oblique andcraniocaudal projections. CAD images w ere reviewed. The current study is compared to the examinations of April 02, 2005frD[facility]. A small metal marker is placed on [...] mammograms werealso examined with computer-aided detection software ([employer], [employer] Reported By: DONNA OJEDA M.D. :59 DEXA BONE DENSITY STUDY (HP) Radiology Report See Note (Normal) Comments: Exam Number: [id number] BONE DENSITOMETRY HISTORYPost menopausal. TECHNIQUE Bone densitometry [...] Report See Note (Normal) Comments: Exam Number: [id number] FIVE VIEW LUMBAR SPINE AP, lateral, both [...] By: MAIRA GARZA M.D. :19 Microalb/Creat Ratio, [facility] Comments: PATIENT NOT FASTINGPERFORMED BY: LabCoUniversity HospitalNunlpz7166 [facility] [id number] Creatinine, Urine 46.8 mg/dL (Normal) Microalb/Creat Ratio 712.8 {ug/mg_creat} (Abnormal) Range: 0.0-30.0 Microalbum.,U,Random 333.6 ug/mL (Abnormal) Range: 0.0-17.0 :13 Creatinine Clearance Comments: PATIENT NOT FASTINGClinical Information: HT-5'4'' WT-184 PERFORMED BY: EVE Nonpareil Ikslub4179 [facility] [id number] Creatinine Clearance 40 mL/min (Abnormal) Range: 88-128 Comments: The above range is based on 1.73 square meter average body surfacearea. Creatinine, Serum 1.30 mg/dL (Normal) Range: 0.50-1.50 Creatinine, Ur 24hr 754.8 {mg/24_hr} Range: 800.0-1800.0 (Abnormal) Creatinine, Urine 44.4 mg/dL (Normal) Glom Filt Rate, Est 41 mL/min (Abnormal) Range: 60-128 If -Mauritanian 50 mL/min (Abnormal) Range: 60-128 Comments: Note: Persistent reduction for 3 months or more in an eGFR<60 mL/min/1.73 m2 defines CKD. Patients with eGFR values>/=60 mL/min/1.73 m2 may also have CKD if evidence of persistentproteinuria is present. .Additional information may be found at [email or web address]. :13 Protein Total, Qn, 24-Hr Comments: PATIENT NOT FASTINGPERFORMED BY: EVE Nonpareil Eomcwv9621 [facility] [id number] Urine Protein,Total,Urine 49.0 mg/dL (Abnormal) Range: 0.0-15.0 Prt, 24hr calculated 833.0 {mg/24_hr} (Abnormal) Range: 30.0-150.0 70-Mbb-950949:00 CBCD,SMEAR DIFF CELLS COUNTED 100 (Normal) EOS [...] T PROT 6.6 g/dL (Normal) Range: 6.4-8.2 40-Irt-096397:00 D BILI 0.06 mg/dL (Normal) Range: 0.00-0.30 14-Jlr-427398:00 LIPID CHOL 175 mg/dL (Normal) Comments: <200 [...] mg/dL VLDL 12 mg/dL (Normal) Range: 5-40 23-Gia-936357:00 TSH 0.84 {uIU/mL} (Normal) Range: 0.34-4.82 Plan [...] of skin Planned Observations Vitamin D Hydroxy (63125)Indication: Vitamin D deficiency On: :25 Request URINALYSIS, W/ MICRO (66282)Indication: Chronic kidney disease, stage 3 On: :25 Request LIPID PANEL (09094)Indication: Mixed hyperlipidemia On: : Request CBC W/AUTO DIFF WBC (62783)Indication: Chronic kidney disease, stage 3 On: :25 Request METABOLIC PANEL, COMPREHENSIVE (29847)Indication: Chronic kidney disease, stage 3 On: :25 Request HGB A1C (63337)Indication: Diabetes mellitus type II, controlled On: 72-Mny-283087:24 Request Parathyroid Hormone-related Peptide (PTH-rP) (26386)Indication: Vitamin D deficiency On: 8-Fng-301031:43 Request Comments: send results to Dr. Santana fax: [phone] VITAMIN D, 1, 25-DIHYDROXY (65139)Indication: Vitamin D deficiency On: 4-Eeh-474263:42 Request Comments: send results to Dr. Santana fax: [phone] Clostridium difficile Toxin A+B, EIA (34100)Indication: Chronic diarrhea On: 8-Pfq-034358:36 Request Vitamin D Hydroxy (66183)Indication: Osteopenia On: 9-Yta-423527:20 Request CBC W/AUTO DIFF WBC (61696)Indication: Hypertension, benign On: 2-Vad-644458:16 Request CALCIFEDIOL (76374)Indication: Chronic kidney disease, stage 3 On: :04 Request Renal function Panel (64134)Indication: Chronic kidney disease, stage 3 On: :04 Request Magnesium (24521)Indication: Chronic kidney disease, stage 3 On: :04 Request MICROALBUMIN: CREATININE RATIO (42149) AND (66346)Indication: Chronic kidney disease, stage 3 On: :04 Request Parathyroid Hormone-related Peptide (PTH-rP) (72431)Indication: Chronic kidney disease, stage 3 On: :04 Request T4, FREE (THYROXINE) (84671)Indication: Cold feeling On: :31 Request TSH (81666)Indication: Cold feeling On: :31 Request PARATHORMONE (26106)Indication: Chronic kidney disease, stage 3 On: :18 Request Comments: copy to Dr. Santana [phone] CALCIFIDIOL (10765) VIT D 25Indication: Chronic kidney disease, stage 3 On: :16 Request Comments: copy to Dr. Santana [phone] MAGNESIUM (85756)Indication: Chronic kidney disease, stage 3 On: :15 Request Comments: copy to Dr. Santana [phone] PROTEIN/CREAT RATIO, URINE (80190)Indication: Chronic kidney disease, stage 3 On: :15 Request Comments: copy to Dr. aSntana [phone] LIPID PANEL (77621)Indication: Mixed hyperlipidemia On: :21 Request CBC with auto diff (04675)Indication: Diabetes mellitus type II, controlled On: 05-Wym-078174:20 Request METABOLIC PANEL, COMPREHENSIVE (20072)Indication: Diabetes mellitus type II, controlled On: 99-Vpk-942057:20 Request HGB A1C (46284)Indication: Diabetes mellitus type II, controlled On: 68-Sfz-313655:10 Request Vitamin D Hydroxy (90014)Indication: Osteopenia On: :08 Request TSH (THYROID STIMULATING HORMONE) (76033)Indication: Depression On: 85-Zmo-410650:06 Request LIPID PANEL (09755)Indication: Other and unspecified hyperlipidemia On: :06 Request CBC with auto diff (46997)Indication: Diabetes mellitus type II, controlled On: 25-Dun-807585:06 Request METABOLIC PANEL, COMPREHENSIVE (60799)Indication: Diabetes mellitus type II, controlled On: 31-Wkw-589166:06 Request CREATININE CLEARANCE (12705)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 On: 1-Lbw-338982:38 Request Total Protein,24 Hour Urine (36677)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 On: 8-Efl-150597:38 Request CBC W/AUTO DIFF WBC (51457)Indication: Diabetes mellitus type II, controlled On: 38-Oxo-117110:11 Request HgA1C , Office (67628)Indication: Diabetes mellitus type II, controlled On: 05-Fix-549403:23 Request CULTURE, SPUTUM (74992)Indication: Cough On: 52-Sbn-821504:47 Request HEPATIC FUNCTION PANEL (70668)Indication: Elevated LFTs On: 16-Vzu-10687:24 Request CREATININE CLEARANCE (09123)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 On: :33 Request 24 hour urine for Protein (69476)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 On: :33 Request CBC WITH MANUAL DIFF (50529)Indication: Diabetes mellitus type II, controlled On: :29 Request METABOLIC PANEL, COMPREHENSIVE (72228)Indication: Diabetes mellitus type II, controlled On: 49-Wgm-235683:29 Request LIPID PANEL (71677)Indication: Mixed hyperlipidemia On: :29 Request CREATININE CLEARANCE (80848)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 On: 1-Xmb-990897:45 Request 24 hour urine for Protein (70851)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 On: 2-Evc-245077:45 Request CREATININE CLEARANCE (49604)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 On: 88-Fjk-315286:57 Request 24 hour urine for Protein (69089)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 On: 77-Tuq-925934:57 Request METABOLIC PANEL, COMPREHENSIVE (49509)Indication: Hypertension, benign On: :32 Request LIPID PANEL (05259)Indication: Mixed hyperlipidemia On: :32 Request C-REACTIVE PROTEIN (49276)Indication: Fatigue On: :24 Request SED RATE ERYTHROCYTE (36704)Indication: Headache On: :24 Request VITAMIN B-12 (CYANOCOBALAMIN) (26274)Indication: Fatigue On: :24 Request LIPID PANEL (58735)Indication: Mixed hyperlipidemia On: :41 Request CBC WITH MANUAL DIFF (72123)Indication: Hypertension, benign On: :41 Request METABOLIC PANEL, COMPREHENSIVE (51706)Indication: Hypertension, benign On: :41 Request CREATININE CLEARANCE (27945)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 On: :34 Request 24 hour urine for Protein (78367)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 On: :34 Request LIPID PANEL (94231)Indication: Mixed hyperlipidemia On: 4-Mik-433673:22 Request HEPATIC FUNCTION PANEL (64036)Indication: Mixed hyperlipidemia On: :22 Request Vitamin D Hydroxy (75939)Indication: Hypercalcemia On: 6-Etn-855703:22 Request PHOSPHORUS (03213)Indication: Hypercalcemia On: 8-Ucx-963648:22 Request PARATHORMONE (12910)Indication: Hypercalcemia On: :22 Request METABOLIC PANEL, COMPREHENSIVE (26728)Indication: Hypercalcemia On: 8-Tis-776811:22 Request CBC WITH MANUAL DIFF (60745)Indication: fsgs On: :58 Request LIPID PANEL (05464)Indication: Mixed hyperlipidemia On: 3-Anw-999043:58 Request METABOLIC PANEL, COMPREHENSIVE (12227)Indication: Hypertension, benign On: 5-Bjk-057974:58 Request Blood Glucose , Office (96076)Indication: Diabetes mellitus type II, controlled On: 5-Fed-671081:10 Request TSH (84246)Indication: Diabetes mellitus type II, controlled On: 30-Ggi-896397:51 Request METABOLIC PANEL, COMPREHENSIVE (34910)Indication: Diabetes mellitus type II, controlled On: 22-Ztz-973509:51 Request CBC WITH MANUAL DIFF (54263)Indication: Diabetes mellitus type II, controlled On: 63-Frb-088386:51 Request MICROALBUMIN: CREATININE RATIO (81052) AND (72322)Indication: Diabetes mellitus type II, controlled On: 29-Vec-068738:51 Request HEPATIC FUNCTION PANEL (87169)Indication: Other and unspecified hyperlipidemia On: :51 Request LIPID PANEL (74672)Indication: Other and unspecified hyperlipidemia On: :51 Request HgA1C , Office (43722)Indication: Diabetes mellitus type II, controlled On: :37 Request Blood Glucose , Office (22807)Indication: Diabetes mellitus type II, controlled On: :37 Request Planned Encounters Medical; [facility] 3 Month FU - On: 22-Mar-2018 11:00 [facility] Fast DO, Chaparrita A Fast DO, Chaparrita A Planned Procedures DRAIN/INJECT MAJOR JOINT OR BURSA On: 07-Feb-2018 Intent ()By: Keri Singh MD Comments: lot no [id number] exp date 2017-12-26 DRAIN/INJECT MAJOR JOINT OR BURSA On: 31-Jan-2018 Intent ()By: Keri Singh MD Comments: Lot#[id number]:8-72-20Slcyn:intra articular Site given:left knee Given By: Dr. Singh ABN signed DRAIN/INJECT MAJOR JOINT OR BURSA On: 24-Jan-2018 Intent ()By: Keri Singh MD Comments: Lot#[id number]: 6-49-90Bkfff:intra artciular Site given:left knee Given By: Dr. Singh ABN signed Euflexxa Echo CompleteBy: Fast DO, Chaparrita A On: 16-Dec-2017 Intent Fast DO, Chaparrita A Flu Vaccine (Quadrivalent) 93228Fs: On: 16-Dec-2017 Intent Fast DO, Chaparrita A Fast DO, Chaparrita A Comments: Lot: [id number]: 10/01/18Site: L dltd, IMDose prefilled syringegiven by: Jamie reviewed and ABN signed Kenalog Injection, 10 mgm On: 03-Oct-2017 Intent (J3301)By: Keri Singh MD Comments: lot: [id number]: 11/20site/route: L knee Cartoid DopplerBy: Fast DO, Chaparrita A On: 12-Sep-2017 Intent Fast DO, Chaparrita A Comments: november DIGITAL TOMOSYNTHESIS OF On: 12-Sep-2017 Intent BREAST (75123)By: Ambrocio WOLFF Chaparrita A Comments: due november 02 Ambrocio WOLFF Chaparrita A Kenalog Injection, 10 mgm On: 06-Jun-2017 Intent (J3301)By: Keri Singh MD Comments: bupivacacine 0.5% [id number] exp 09-20 kenalog 40 mg injected in. [id number] 07-21 MRI OF BRAIN WITH AND WITHOUT On: 06-Jun-2017 Intent CONTRAST (34028)By: Case Albrecht DOa A Fast DO, Chaparrita A ELECTROCARDIOGRAM, COMPLETE (ECG) On: 06-Jun-2017 Intent (59172)By: Ambrocio WOLFF Chaparrita A Fast Comments: ekg [...] 10-May-2017 Intent 1000 CC (Special Coverage Comments: lot:[id number]:IV left anticub dose:1000ml given by:eliazar Araya LPN Instructions Apply. See MCM: 2048) (J7030)By: Case Albrecht DOa A Ambrocio DO, Chaparrita A Radiology - Chest- PA and LatBy: On: 05-May-2017 Intent Keri Singh MD Aerosol Treatment (34744)By: On: 05-May-2017 Intent Keri Singh MD Radiology - ChestBy: Francisco MANN, On: 05-May-2017 Intent Keri Alonzo Comments: call wet read DRAIN/INJECT MAJOR JOINT OR BURSA On: 28-Feb-2017 Intent (18371)By: Keri Singh MD Comments: 1 cc Kenelog #[id number] Marcaine #[id number] Kenalog Injection, 10 mgm On: 28-Feb-2017 Intent (J3301)By: Keri Singh MD ELECTROCARDIOGRAM, COMPLETE (ECG) On: 10-Jan-2017 Intent (93785)By: Chaparrita Albrecht DO Comments: ekg showed normal sinus rhythym, normal axis, no acute st/t wave changes Chaparrita WOLFF Flu Vaccine (Quadrivalent) 33580Gf: On: 27-Dec-2016 Intent SHONDA Andrade DRAIN/INJECT MAJOR JOINT OR BURSA On: 20-Aug-2016 Intent ()By: Keri Singh MD DRAIN/INJECT MAJOR JOINT OR BURSA On: 13-Aug-2016 Intent ()By: SHONDA Andrade Comments: lot: [id number]:intra articular dose:2ml given by:Dr. Francisco HUMPHREY signedER, [employer]NER R[employer]ARY DRUM CONTINUOUS PROCESS injection #3 DOPPLER ULTRASOUND OF RIGHT CAROTID On: 10-Aug-2016 Intent ARTERY (55032)By: Ambrocio WOLFF Chaparrita A Comments: end october Ambrocio DO Chaparrita A DEXA SCAN AXIAL SKELETON (88466)By: On: 10-Aug-2016 Intent Case Albrecht DOa A Fast DO, Chaparrita A Comments: end of october SCREENING DIGITAL TOMOSYNTHESIS OF On: 10-Aug-2016 Intent BREAST (28249)By: Case Albrecht DOa A Comments: end of october Fast , Chaparrita A DRAIN/INJECT MAJOR JOINT OR BURSA On: 06-Aug-2016 Intent ()By: Keri Singh MD DRAIN/INJECT INTERMED JOINT/BURSA On: 06-Aug-2016 Intent ()By: SHONDA Andrade Comments: lot:[id number]:left knee dose:2mlgiven by:Dr. Francisco HUMPHREY signedER, [employer] DRUM CONTINUOUS PROCESS injection number 2 Venous Doppler - LeftBy: Ambrocio WOLFF, On: 03-Aug-2016 Intent Chaparrita A Ambrocio DO, Chaparrita A Comments: This is set up for August 05 at 11am- spoke with Rina in cv. DRAIN/INJECT INTERMED JOINT/BURSA On: 30-Jul-2016 Intent ()By: Keri Singh MD Comments: lot:[id number]:[id number]:intra articular left knee dose: 2ml given by: Dr. Francisco HUMPHREY signedER, [employer] DRUM CONTINUOUS PROCESS injection #1 Radiology - Knee - LeftBy: Fast DO, On: 26-May-2016 Intent Chaparrita A Fast DO, Chaparrita A Flu Vaccine (Quadrivalent) 38699Ht: On: 27-Jan-2016 Intent Fast DO, Chaparrita A Fast DO, Chaparrita A Comments: Lot #:[id number] date:10/01/16mount given:0.5mlRoute: IMSite given: left deltoidGiven by: CARMELINA Hook ADMINISTRATION OF INFLUENZA VIRUS On: 27-Jan-2016 Intent VACCINE (G0008)By: Fast DO, Chaparrita A Fast DO, Chaparrita A DOPPLER ULTRASOUND OF RIGHT CAROTID On: 22-Oct-2015 Intent ARTERY (41142)By: Fast DO, Chaparrita A Fast DO, Chaparrita A MAMMOGRAM, SCREENING, BOTH BREAST On: 22-Oct-2015 Intent (72820)By: Fast DO, Chaparrita A Fast DO, Chaparrita A Ultrasound - RenalBy: Fast DO, On: 14-Jul-2015 Intent Chaparrita A Fast DO, Chaparrita A Radiology - Knee - Left - Weight On: 11-Mar-2015 Intent BearingBy: Fast DO, Chaparrita A Fast DO, Chaparrita A Radiology - Knee - Right - Weight On: 11-Mar-2015 Intent BearingBy: Fast DO, Chaparrita A Fast DO, Chaparrita A Flu Vaccine (Quadrivalent) 89475Sm: On: 11-Feb-2015 Intent Fast DO, Chaparrita A Fast DO, Chaparrita A EKG (75586)By: Fast DO, Chaparrita A On: 05-Nov-2014 Intent Fast DO, Chaparrita A Comments: ekg showed normal sinus rhythym, normal axis, no acute st/t wave changes left axis DRAIN/INJECT SMALL JOINT OR BURSA On: 07-Oct-2014 Intent ()By: Keri Singh MD MAMMOGRAM, SCREENING, BOTH BREAST On: 02-Aug-2014 Intent (93013)By: Fast DO, Chaparrita A Fast Comments: meera DO, Chaparrita A Cartoid DopplerBy: Fast DO, Chaparrita A On: 02-Aug-2014 Intent Fast DO, Chaparrita A DEXA SCAN AXIAL SKELETON (42696)By: On: 09-Apr-2014 Intent Fast DO, Chaparrita A Fast DO, Chaparrita A Prevnar 13 (59600)By: Ambrocio DO, On: 30-Jan-2014 Intent Chaparrita A Fast DO, Chaparrita A Comments: Lot:[id number]:05/20Dose:0.5Route:imSite:l armGiven By:Jarred signed FLU VAC, SPLIT, >3 YEARS, INTRAMUSC On: 16-Jan-2014 Intent (41914)By: Case Albrecht DOa A Ambrocio Comments: Lot #:[id number] date:12/2015Amount given:0.5mlRoute: IMSite given: left deltoidGiven by: CARMELINA Hook DO, Chaparrita A ADMINISTRATION OF INFLUENZA VIRUS On: 16-Jan-2014 Intent VACCINE (G0008)By: Ambrocio DO, Chaparrita A Fast DO, Chaparrita A EKG (73400)By: Fast DO, Chaparrita A On: 17-Oct-2013 Intent Fast DO, Chaparrita A Comments: ekg showed normal sinus rhythym, left axis, no acute st/t wave changes Radiology - Chest- PA and LatBy: On: 17-Sep-2013 Intent Fast DO, Chaparrita A Fast DO, Chaparrita A Aerosol Treatment (17625)By: Ambrocio On: 17-Sep-2013 Intent DO, Chaparrita A Fast DO, Chaparrita A MRI - BrainBy: Fast DO, Chaparrita A On: 22-Jul-2013 Intent Fast DO, Chaparrita A Cartoid DopplerBy: Fast DO, Chaparrita A On: 20-Jul-2013 Intent Fast DO, Chaparrita A MAMMOGRAM, SCREENING, BOTH BREASTS On: 20-Jul-2013 Intent (80166)By: Fast DO, Chaparrita A Fast DO, Chaparrita A Eprescribed prescriptions On: 20-Jul-2013 Intent (G8553)By: Fast DO, Chaparrita A Fast DO, Chaparrita A Eprescribed prescriptions On: 02-Feb-2013 Intent (G8553)By: Марина Concepcion FLU VAC, SPLIT, >3 YEARS, INTRAMUSC On: 03-Jan-2013 Intent (49709)By: Марина Concepcion Comments: Lot #:[id number] date:mount given:0.5mlRoute: IMSite given: L dltdVIS and ABN signedGiven by: CARMELINA Hook ADMINISTRATION OF INFLUENZA VIRUS On: 03-Jan-2013 Intent VACCINE (G0008)By: Марина Concepcion CT - Abdomen & Pelvis (IV Contrast On: 17-Oct-2012 Intent Needed)By: Chaparrita Albrecht DO A Ambrocio Comments: patient will be calling to set up DO, Chaparrita A Eprescribed prescriptions On: 10-Oct-2012 Intent (G8553)By: Марина Concepcion Ear Irrigation (19722)By: [place], On: 13-Jun-2012 Intent Ivy Comments: Ear Irrigation performed on: right earAmount/color removed cerumen: light brown, small amount removedOUtcome:Pt toleratedUsed wax curettes Wax Currettes (77795)By: [place], On: 13-Jun-2012 Intent Ivy PNEUM VAC ADLT/IMUMNOSPR, SBC/INTRM On: 13-Jun-2012 Intent (97346)By: Chaparrita Albrecht DO Comments: Lot:[id number]:09/09/13Dose:0.5mLRoute:IMSite:L armGiven By:BHMUI signed DO, Chaparrita A EKG (58908)By: Case Albrecht DOa A On: 13-Jun-2012 Intent [...] MAMMOGRAM, SCREENING, BOTH BREASTS On: 28-Dec-2011 Intent (08007)By: Ambrocio WOLFF Chaparrita A Ambrocio DO, Chaparrita A DXA, BONE DENSITY, AXIAL SKELETON On: 28-Dec-2011 Intent (70825)By: Ambrocio WOLFF Chaparrita A Fast DO, Chaparrita [...] SPLIT, >3 YEARS, INTRAMUSC On: 28-Dec-2011 Intent (50691)By: Марина Concepcion Comments: Lot #:[id number] date:mount given:0.5mlRoute: IMSite given: left deltoidGiven by: CARMELINA Hook ADMINISTRATION OF INFLUENZA VIRUS On: 28-Dec-2011 Intent VACCINE (G0008)By: Марина Concepcion Aerosol Treatment (01307)By: Ciesa On: 30-Nov-[address] - Abdomen & PelvisBy: Fast DO, On: 21-Sep-2011 Intent Chaparrita A Fast DO, Chaparrita A Comments: with special cuts through the kidney- october EKG (11483)By: Марина Concepcion On: 15-Jun-2011 Intent Comments: ekg [...] Comments: Call results to Dr. Albrecht @ [phone] as soon as resulted please. DO, Chaparrita A Eprescribed prescriptions On: 11-Jan-2011 Intent (G8553)By: Fast DO, Chaparrita A Fast DO, Chaparrita A MAMMOGRAM, SCREENING, BOTH BREASTS On: 11-Jan-2011 Intent (82198)By: Ambrocio DO, Chaparrita A Fast DO, Chaparrita A CT - Sinuses CompleteBy: Fast DO, On: 11-Jan-2011 Intent Chaparrita A Fast DO, Chaparrita A Cartoid DopplerBy: Fast DO, Chaparrita A On: 11-Jan-2011 Intent Fast DO, Chaparrita A ADMINISTRATION OF INFLUENZA VIRUS On: 11-Jan-2011 Intent VACCINE (G0008)By: Марина Concepcion FLU VAC, SPLIT, >3 YEARS, INTRAMUSC On: 11-Jan-2011 Intent (41642)By: Марина Concepcion Eprescribed prescriptions On: 12-Oct-2010 Intent (G8553)By: Ambrocio WOLFF, Chaparrita A Fast DO, Chaparrita A Renal DopplerBy: Fast DO, Chaparrita A On: 12-Oct-2010 Intent Fast DO, Chaparrita A Cartoid DopplerBy: Fast DO, Chaparrita A On: 12-Oct-2010 Intent Fast DO, Chaparrita A Comments: sept TDAP VACCINE >7 IM ([id number])By: On: 13-May-2010 Intent Helena Tineo LPN Comments: Lot #[id number]-left deltoidgiven by:[facility] EKG ([id number])By: Марина Concepcion On: 13-May-2010 Intent Comments: ekg showed normal sinus rhythym, normal axis, no acute st/t wave changes Aerosol Treatment ([id number])By: Charlene On: 22-Dec-2009 Intent Johanna SANZ Cartoid DopplerBy: Fast DO, Chaparrita A On: 01-Dec-2009 Intent Fast DO, Chaparrita A MAMMOGRAM, SCREENING, BOTH BREASTS On: 01-Dec-2009 Intent ([id number])By: Fast DO, Chaparrita A Fast DO, Chaparrita A DXA, BONE DENSITY, AXIAL SKELETON On: 01-Dec-2009 Intent ([id number])By: Fast DO, Chaparrita A Fast DO, Chaparrita A Ultrasound - SpleenBy: Fast DO, On: 17-Jun-2009 Intent Chaparrita A Fast DO, Chaparrita A EKG ([id number])By: Марина Concepcion On: 10-Mar-2009 Intent Comments: ekg showed normal sinus rhythym, normal axis, no acute st/t wave changes FLU VAC, SPLIT, >3 YEARS, INTRAMUSC On: 09-Jan-2009 Intent ([id number])By: Stacy Jorge Comments: Lot #[id number]-left deltoidDose0.5mlgiven by Marycarmen Jorge LPN ADMINISTRATION OF INFLUENZA VIRUS On: 09-Jan-2009 Intent VACCINE ([id number])By: Stacy Jorge MAMMOGRAM, SCREENING, BOTH BREASTS On: 04-Dec-2008 Intent ([id number])By: Fast DO, Chaparrita A Fast DO, Chaparrita A MAMMOGRAM, SCREENING, BOTH BREASTS On: 03-Sep-2008 Intent ([id number])By: Fast DO, Chaparrita A Fast DO, Chaparrita A FLU VAC, SPLIT, >3 YEARS, INTRAMUSC On: 16-Jan-2008 Intent ([id number])By: Janet Scherer RN Comments: Lot #: [id number] date: 09/10Amount given: 0.5 mlRoute: IMSite given: Left deltoidGiven by: Olivia Bell LPN ADMINISTRATION OF INFLUENZA VIRUS On: 16-Jan-2008 Intent VACCINE ([id number])By: Janet Scherer RN EKG ([id number])By: Fast DO, Chaparrita A On: 29-Aug-2007 Intent Fast DO, Chaparrita A Comments: done km ADMINISTRATION OF PNEUMOCOCCAL On: 29-Aug-2007 Intent VACCINE ([id number])By: Fast DO, Chaparrita A Fast DO, Chaparrita A PNEUM VAC ADLT/IMUMNOSPR, SBC/INTRM On: 29-Aug-2007 Intent ([id number])By: Fast DO, Chaparrita A Fast Comments: 0.5cc given im lt arm [id number] exp 02-13-08 DO, Chaparrita A DXA, BONE DENSITY, AXIAL SKELETON On: 29-Aug-2007 Intent ([id number])By: Fast DO, Chaparrita A Fast DO, Chaparrita A MAMMOGRAM, SCREENING, BOTH BREASTS On: 29-Aug-2007 Intent ([id number])By: Fast DO, Chaparrita A Fast DO, Chaparrita [...] new people and be involved in the congregation 0 bps are good and sugar looking [...] medical issues: she has been working with [facility] and trying to work on that- she got rid of respiratory infection but was sick for weeks and was on pred so her sugar up and chol up a bit- trying to add protein shakes drink more water- she is starting back at [facility]- diarrhea resolved- we did talk about going [...] that she had episode where went to [facility] and she couldnt remember where she was- and happened one other time where she didnt recognize the roads- sister had alzheimer s- weight down because was sick- but coming back up- she hasnt done counseling with hospice has been thru before- she lonely- not necessarily unhappy- she doing self help 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 Nutrition: [facility] ed diet. The medical issues the patient [...] visual acuity (yearly). Note for Physical exam: [facility] Wellness Physical- Talk about trying Myrbetriq., [ADDITIONAL [...] Meningioma (Renamed from 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, 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, BRAIN/HR SYSTEMS ANALYST NEC (794.09)) [facility] Office Visit [...] Meningioma (Renamed from 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, 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, BRAIN/HR SYSTEMS ANALYST NEC (794.09)), Diabetes, Type II, controlled (250.00), [...] Meningioma (Renamed from 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, 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, BRAIN/HR SYSTEMS ANALYST NEC (794.09)), Colon Polyp [facility] [...] Meningioma (Renamed from 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, 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, BRAIN/HR SYSTEMS ANALYST NEC (794.09)), OCCLUSION AND STENOSIS OF CAROTID [...] Meningioma (Renamed from 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, 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, BRAIN/HR SYSTEMS ANALYST NEC (794.09)), Chronic glomerulonephritis with lesion of [...] Meningioma (Renamed from 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, 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, BRAIN/HR SYSTEMS ANALYST NEC (794.09)), Other and unspecified hyperlipidemia (272.4), [...] Meningioma (Renamed from 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, 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, BRAIN/HR SYSTEMS ANALYST NEC (794.09)) [facility] Visit [...] Meningioma (Renamed from 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, 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, BRAIN/HR SYSTEMS ANALYST NEC (794.09)), Gerd (530.81), Hyperlipidemia, Unspecified (272.4), [...] Meningioma (Renamed from 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, 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, BRAIN/HR SYSTEMS ANALYST NEC (794.09)), Hypertension,benign(401.1), OCCLUSION AND STENOSIS OF [...] Meningioma (Renamed from 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, 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, BRAIN/HR SYSTEMS ANALYST NEC (794.09)), Diabetes, Type II, controlled (250.00), [...] Meningioma (Renamed from 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, 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, BRAIN/HR SYSTEMS ANALYST NEC (794.09)), Hypertension,benign(401.1), Osteopenia (733.90), Depression (311.), [...] weight down 23 pounds- and trying joined [employer]- she feels well - she increased celexa [...] Meningioma (Renamed from 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, 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, BRAIN/HR SYSTEMS ANALYST NEC (794.09)), Chronic glomerulonephritis with lesion of [...] Meningioma (Renamed from 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, 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, BRAIN/HR SYSTEMS ANALYST NEC (794.09)) End: 26-Jan-2011 16:53 [facility] Office Visit On: 19-Jan-2011 14:30 Encounter Diagnosis: brain tumor End: 21-Sep-2011 8:09 [facility] Phone Encounter On: 19-Jan-2011 13:41 Encounter Diagnosis: 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, 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, 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
--- OUTSIDE RECORDS SUMMARY | 2018-06-25 22:03 | XMS RPT_ITS | Continuity of Care Document ---
:1940 Author Organization [facility] Address [address] [place] [address] Phone Care Team Providers Name Role Phone Chaparrita lAbrecht DO Unavailable Dr. Marcus Caldera Unavailable Keri [...] Knee pain, unspecified laterality (719.46) Comments: Valorie:lot: [id number]: 09/20site/route: L knee Status: Active Leg pain, [...] 5 MG Oral Tablet 1 (one) Tablet Tablet qd for 0 days Quantity: 90 {Tablet} Refills: 3 Ordered:22-Feb-2017 Keri Singh MD Start : 22-Feb-2017 Active Atorvastatin Calcium 40 MG Oral Tablet [...] Refills: 3 Ordered:17-Nov-2017 , Chaparrita AFast DO, Cahparrita A Start : 17-Nov-2017 Active FreeStyle Lite [...] days Quantity: 90 {Tablet} Refills: 3 Ordered:22-Aug-2017 Chaparrita Albrecht DOChaparrita jones DO A Start : 22-Aug-2017 Active Victoza 18 [...] 60 {Capsule} Refills: 0 Ordered:16-Dec-2017 Chaparrita Albrecht DOChaparrita jones DO A Start : 16-Dec-2017 Active Aricept 5 MG Oral Tablet 1 (one) Tablet qd in evening for 0 days Quantity: 30 {Tablet} Refills: 3 Ordered:16-Dec-2017 Inna Reynoso Start : 28-Sep-2017 End : 16-Dec-2017 Inactive Comments:may use generic Ativan 0.5 MG Oral Tablet 1 Tablet bid/prn for 30 days Quantity: 60 {Tablet} Refills: 0 Ordered:25-Oct-2017 Chaparrita Albrecht DOkaren WOLFF, Chaparrita A Start : 25-Oct-2017 End : 24-Nov-2017 Inactive Comments:sixty Benzonatate 200 MG Oral Capsule 1 (one) Capsule Capsule bid prn cough for 0 days Quantity: 20 {Capsule} Refills: 0 Ordered:06-Jun-2017 Ambrocio WOLFF, Chaparrita ENGLEkaren DO, Chaparrita A Start : 05-May-2017 End [...] days Quantity: 20 {Tablet} Refills: 0 Ordered:10-May-2017 Edgardo Inna Start : 05-May-2017 End : 10-May-2017 Inactive [...] spray daily for 0 days Quantity: 1 {[place]} Refills: 0 Ordered:04-May-2016 SHONDA Andrade Start : [...] and dispense 8 ounes TOTAL mixed solutionCal [id number] if questions SPECTAZOLE, 1% (External Cream) 1 [...] End : 11-Feb-2015 Discontinued Comments:th[age], called to [facility] 08[facility]30-14 [facility] Allergies and Adverse Reactions [...] 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 2016 right Cholecystectomy Completed lumbar lhvjmj==8756 Completed Tonsillectomy Completed Date Value Details 19-Dec-2017 Echocardiogram Complete Result: Comments: See Note; NOTES: [facility] Cardiovascular Services [address] [place] [address] Echo Complete 12/19/17 0800 MR#: [id number] Acct: [id number] Name: CLARENCE ALBERT ep #: [id number] : 1940 77 From: Chuckie Cormier MD Attending Dr: Chaparrita Albrecht DO Status: REG CLI Ordering Dr: Chaparrita Albrecht DO Date: 12/19/17 Location: [facility] Sex: F C Admitted: [...] Dictated: 12/19/17 0800 Date Transcribed: 12/19/17 1022 Dowel Pointer: Signed 07-Dec-2017 Carotid Duplex Ultrasound Result: Comments: See Note; NOTES: [facility] Cardiovascular Services [address] [place] [address] Carotid Duplex Ultrasound 12/06/17 0901 MR#: [id number] Acct: [id number] Name: RACHELLEAlen ANNCLARENCE Nazia Rep #: [id number] : 1940 77 From: Anurag Loya MD [...] the left vertebral artery. Procedure Carotid Duplex 45252. Exam performed in department. Interpretation Summary Mild (<50%) stenosis right extracranial internal carotid. Mild (<50%) stenosis left extracranial internal carotid. Flow within the vertebral arteries is antegrade bilaterally. __ __ Ordering Physician: Chaparrita Albrecht Performed By: Margot Benton RVT and Student 12/07/17 0809 Date Anurag Loya MD CC: Chaparrita Albrecht DO Date Dictated: 12/06/17900 Date Transcribed: 12/07/17808 Dowel Pointer: Signed 06-Dec-2017 SCREENING MAMM (CAD), BILAT Result: Comments: See Note; NOTES: [facility] Imaging Services [address] [place] [address] SCREENING MAMM (CAD), BILAT MR#: [id number] Acct: [id number] Name: CLARENCE ALBERT Rep #: [id number] : 1940 F 77 From: Misael Hebert MD PCP: Chaparrita Albrecht DO Status: REG CLI Study: SCREENING MAMM (CAD), BILAT Date of Exam: 12/06/17 Exam# [id number] Ordering Dr: Chaparrita Albrecht DO MAMM OGRAPHY [...] delay biopsy of a clinically suspicious abnormality. [id number] Electronically Signed: Misael Hebert MD at 15:31 EDT Tel [phone], Se rvice support , CC: Chaparrita Albrecht DO Dowel Pointer: Signed 10-Jun-2017 Brain W/WO Contrast Result: Comments: See Note; NOTES: [facility] Imaging Services [address] [place] [address] Brain W/WO Contrast MR#: [id number] Acct: [id number] Name: CLARENCE ALBERT Rep #: [id number] : 1940 F 77 From: Laya Montilla MD PCP: Chaparrita Albrecht DO Status: REG CLI Study: Brain W/WO Contrast Date of Exam: 06/10/17 Exam# [id number] Ordering Dr: Chaparrita lAbrecht DO STUDY: MRI BRAIN WITH AND W [...] Service support , CC: Chaparrita Albrecht DO Dowel Pointer: Signed 05-May-2017 Chest PA and Lateral Result: Comments: See Note; NOTES: [facility] Imaging Services [address] [place] [address] Chest PA and Lateral MR#: [id number] Acct: [id number] Name: CLARENCE ALBERT Rep #: [id number] : 1940 F 77 From: Edwar Patino MD PCP: Chaparrita Albrecht DO Status: REG CLI Study: Chest PA and Lateral Date of Exam: 05/05/17 Exam# [id number] Ordering Dr: Keri Singh MD STUDY: X-RAY [...] CC: Keri Singh MD; Chaparrita Albrecht DO Dowel Pointer: Signed 02-Nov-2016 Dexa Bone Density Study (HP) Result: Comments: See Note; NOTES: [facility] Imaging Services [address] [place] [address] Verdana 4d Dexa Bone Density Study (HP) MR#: [id number] Acct: [id number] Name: LYNNE ALBERT Rep #: [id number] : 1940 F 76 From: Misael Hebert MD PCP: Chaparrita Albrecht DO Status: REG CLI Study: Dexa Bone Density Study (HP) Date of Exam: 11/02/16 Exam# [id number] Ordering Dr: Laura DO STUDY: DUAL ENERGY [...] Misael Hebert MD at 11:02 EDT Tel [phone], Service support , CC: Chaparrita Albrecht DO Dowel Pointer: Signed 02-Nov-2016 SCREENING MAMM (CAD), BILAT Result: Comments: See Note; NOTES: [facility] Imaging Services [address] [place] [address] Verdana 4d SCREENING MAMM (CAD), BILAT MR#: [id number] Acct: [id number] Name: CLARENCE ALBERT Rep #: [id number] : 1940 F 76 From: Misael Hebert MD PCP: Chaparrita Albrecht DO Status: [facility] CLI Study: SCREENING MAMM (CAD), BILAT Date of Exam: 11/02/16 Exam# [id number] Ordering Dr: Case Albrecht DO MAMMOGRAPHY - [...] delay biopsy of a clinically suspicious abnormality. [id number] Electronically Signed: Misael Hebert MD at 12:44 EDT Tel [phone], Service support , CC: Chaparrita Albrecht DO Dowel Pointer: Signed 05-Aug-2016 Venous Duplex Lower Extremity Result: Comments: See Note; NOTES: [facility] Cardiovascular Services [address] [place] [address] Venous Duplex US, Unilateral 08/05/16 1053 MR#: [id number] Acct: [id number] Name: CLARENCE WEI Rep #: [id number] : 1940 76 From: Elvin Natarajan MD [...] Date Dictated: 08/05/16 1053 Date Transcribed: 08/05/16 112 Dowel Pointer: Signed 27-May-2016 Knee 4 or More Views Result: Comments: See Note; NOTES: [facility] Imaging Services [address] [place] [address] Verdana 4d Knee 4 or More Views MR#: [id number] Acct: [id number] Name: CLARENCE ALBERT Rep #: [id number] : 1940 F 76 From: Misael Hebert MD PCP: Chaparrita Albrecht DO Status: REG CLI Study: Knee 4 or More Views Date of Exam: 05/27/16 Exam# [id number] Ordering Dr: Kylah Linda DO UDY: X-RAY [...] MD at 10:41 EST , Service support [phone], CC: Chaparrita Albrecht DO; Kylah Linda DO Dowel Pointer: Signed 13-May-2016 Sinus/Facial Bone Result: Comments: See Note; NOTES: [facility] Imaging Services [address] [place] [address] Verdana 4d Sinus/Facial Bone MR#: [id number] Acct: [id number] Name: CLARENCE ALBERT Rep #: [id number] : 1940 F 76 From: Godwin Winter MD PCP: Chaparrita Albrecht DO Status: REG CLI Study: Sinus/Facial Bone Date of Exam: 05/13/16 Exam# [id number] Ordering Dr: Alejandro Silverman MD STUDY: CT [...] MD at 7:35 EST , Service support [phone], CC: Chaparrita Albrecht DO; Alejandro Silverman MD Dowel Pointer: Signed 21-Apr-2016 Emergency Department Summary Result: Comments: See Note; NOTES: [facility] Medical Records Department [address] [place] [address] Emergency Department Summary MR#: [id number] Acct: [id number] Name: CLARENCE ALBERT Rep #: [id number] : 1940 76 From: Carissa Murphy MD [...] epistaxis. CARISSA MURPHY MD T: NTS JOB: [id number] 04/21/16805 <Electronically signed by Carissa Murphy MD> Date Carissa donovan MD Cosigner Signature (If Indicated): Date CC: Chaparrita Albrecht DO Date Dictated: 04/20/161711 Date Transcribed: 04/20/161711 Dowel Pointer: Signed 20-Apr-2016 Discharge Instruction Result: Comments: See Note; NOTES: [facility] Medical Records Department [facility] [place] [address] Discharge Instruction 04/20/16 1303 MR#: [id number] Acct: [id number] Name: CLARENCE ALBERT Rep #: [id number] : 1940 76 From: Carissa Murphy MD [...] your Primary Care Provider. Call [facility] ([phone]) or report to the closest Emergency Room. Call 911 if necessary. 04/20/16 7715 <Electronically signed by Carissa Murphy MD> Date Carissa Murphy MD Cosigner Signature (If I ndicated): Date CC: Chaparrita Albrecht DO 02-Nov-2015 Carotid Duplex Ultrasound Result: Comments: See Note; NOTES: [facility] Cardiovascular Services [address] [place] [address] Carotid Duplex Ultrasound 10/30/15 1100 MR#: [id number] Acct: [id number] Name: CLARENCE ALBERT Rep #: [id number] : 1940 75 From: Elvin Natarajan MD [...] the left vertebral artery. Procedure Carotid Duplex 03821. The exam was diagnostic. Exam performed in department. Interpretation Summary No significant atherosclerotic plaque or stenosis noted in the right internal carotid artery. Mild (<50%) stenosis left extracranial internal carotid. Armando w within the vertebral arteries is antegrade bilaterally. There has been no significant change since a prior study on 10/18/14. Ordering Physician: Chaparrita Albrecht Performed By: Yana Ramirez, RDCS, RVT 11/02/15 1143 Date ___ Elvin Natarajan MD CC: Chaparrita Albrecht DO Date Dictated: 10/30/15 1100 Date Transcribed: 11/02/15 1143 Dowel Pointer: Signed 30-Oct-2015 Bilat Scrn Digital AND CAD Result: Comments: See Note; NOTES: [facility] Imaging Services [address] [place] [address] Verdana 4d Bilat Scrn Digital AND CAD MR#: [id number] Acct: [id number] Name: CLARENCE ALBERT Rep #: [id number] : 1940 F 75 From: Andres Brady MD PCP: Chaparrita Albrecht DO Status: REG CLI Study: Bilat Scrn Digital AND CAD Date of Exam: 10/30/15 Exam# [id number] Ordering Dr: Chaparrita Albrecht DO MAMMOGRAPHY - [...] biop sy of a clinically suspicious abnormality. [id number] Electronically Signed: Andres Brady MD at 17:48 EDT Tel , Service support [phone], CC: Chaparrita Albrecht DO Dowel Pointer: Signed 30-Oct-2015 Bilat Scrn Digital AND CAD Result: Comments: See Note; NOTES: [facility] Imaging Services [address] [place] [address] Verdana 4d Bilat Scrn Digital AND CAD MR#: [id number] Acct: [id number] Name: CLARENCE ALBERT Rep #: [id number] : 1940 F 75 From: Andres Brady MD PCP: Chaparrita Albrecht DO Status: REG CLI Study: Bilat Scrn Digital AND CAD Date of Exam: 10/30/15 Exam# [id number] Ordering Dr: Chaparrita Albrecht DO MAMMOGRAPHY - [...] abnormalities are identified. CC: Chaparrita Albrecht DO Dowel Pointer: Signed 22-Oct-2015 ELECTROCARDIOGRAM, COMPLETE (ECG) (10839) Comments: ekg showed normal sinus rhythym, normal axis, no acute st/t wave changes no change Result: [MEASUREMENTS ANALYSIS] Date of Test: 10/22/2015 14:41:29; Heart Rate: 71; VA Interval: 140; QRS: 94; QT Interval: 384; Corrected QT Interval (QTc): 403; P Wave Cranks: 58; QRS Wave Cranks: -3; T Wave Cranks: 56; Blood Pressure: 128/76 [ECG DIAGNOSTIC STATEMENTS] Date of Test: 10/22/2015 14:41:29; Summary: Sinus Rhythm Low voltage -possible pulmonary disease. ABNORMAL 22-Jul-2015 Kidney and Bladder Result: Comments: See Note; NOTES: [facility] Imaging Services [address] [place] [address] Verdana 4d Kidney and Bladder MR#: [id number] Acct: [id number] Name: BETYYanivRika Mandujano Rep #: [id number] : 1940 F 75 From: Nir Sanchez MD PCP: Chaparrita Albrecht DO Status: REG CLI Study: Kidney and Bladder Date of Exam: 07/22/15 Exam# [id number] Ordering Dr: Chaparrita Albrecht DO STUDY: RENAL [...] Service support , CC: Chaparrita Albrecht DO Dowel Pointer: Signed 11-Mar-2015 Knee 4 or More Views Result: Comments: See Note; NOTES: [facility] Imaging Services [address] [place] [address] Verdana 4d Knee 4 or More Views MR#: [id number] Acct: [id number] Name: CLARENCE ALBERT Rep #: [id number] : 1940 F 74 From: Trent Cameron DO PCP: hCaparrita Albrecht DO Status: REG CLI Study: Knee 4 or More Views Date of Exam: 03/11/15 Exam# [id number] Ordering Dr: Case Albrecht DO STUDY: X-RAY [...] at 7:45 EST Tel , Service support [phone], RAD/Knee 4 or More Views IMPRESSION: Degener ative changes within the knee. No acute fracture. Small suprapatellar effusion. Electronically Signed: Trent Cameron DO at 7:45 EST Tel , Service support [phone], CC: Chaparrita Albrecht DO Dowel Pointer: Signed 11-Mar-2015 Knee 4 or More Views Result: Comments: See Note; NOTES: [facility] Imaging Services [address] [place] [address] Verdana 4d Knee 4 or More Views MR#: [id number] Acct: [id number] Name: ALBERT CLARENCE Nazia Rep #: [id number] : 1940 F 74 From: Trent Cameron DO PCP: Chaparrita Albrecht DO Status: REG CLI Study: Knee 4 or More Views Date of Exam: 03/11/15 Exam# [id number] Ordering Dr: Case Albrecht DO STUDY: X-RAY [...] at 7:46 EST Tel , Service support [phone], RAD/Knee 4 or More Views IMPRESSION: Mild degenerative changes. No acute bony abnormality. Electronically Signed: Trent Cameron DO at 7:46 EST Tel , Service support [phone], CC: Chaparrita Albrecht DO Dowel Pointer: Signed 18-Oct-2014 Carotid Duplex Ultrasound Result: Comments: See Note; NOTES: [facility] Cardiovascular Services [address] [place] [address] Carotid Duplex Ultrasound 10/18/14 1331 MR#: [id number] Acct: [id number] Na me: CLARENCE ALBERT Rep #: [id number] : 1940 74 From: Elvin Natarajan MD [...] the left vertebral artery. Procedure Carotid Duplex 33501. The exam was diagnostic. Exam performed in [...] Dictated: 10/18/14 1331 Date Transcribed: 10/18/14 1616 Dowel Pointer: Signed 18-Oct-2014 Bilat Scrn Digital AND CAD Result: Comments: See Note; NOTES: [facility] Imaging Services [address] [place] [address] Breast Imaging Report MR#: [id number] Acct: [id number] Name: CLARENCE ALBERT Rep #: [id number] : 1940 F 74 From: Misael Hebert MD PCP: Chaparrita Albrecht DO Status: REG CLI Study: Billila Scrn Digital AND CAD Date of Exam: 10/18/14 Exam# [id number] Ordering Dr: Chaparrita Albrecht DO MAMMOGRAPHY - [...] Misael redmond MD at 13:44 EDT Tel [phone], Service support [phone], CC: Chaparrita Albrecht DO Dowel Pointer: Signed 09-Jul-2014 Dexa Bone Density Study (HP) Result: Comments: See Note; NOTES: [facility] Imaging Services [address] [place] [address] Bone Density Report MR#: [id number] Acct: [id number] Name: CLARENCE ALBERT Rep #: [id number] : 1940 F 74 From: Misael Hebert MD PCP: Chaparrita Albrecht DO Status: [facility] CLI Study: Dexa Bone Density Study (HP) Date of Exam: 07/09/14 Exam# [id number] Ordering Dr: Chaparrita Albrecht DO STUDY: DUAL [...] Angel Hebert MD at 14:55 EDT Tel [phone], Service support [phone], CC: Chaparrita Albrecht DO Dowel Pointer: Signed 17-Sep-2013 Chest PA and Lateral Result: Comments: See Note; NOTES: [facility] Imaging Services [address] [place] [address] Radiology Report MR#: [id number] Acct: [id number] Name: CLARENCE ALBERT Rep #: [id number] : 1940 F 73 From: David Bennett MD PCP: Chaparrita Albrecht DO Status: REG CLI Study: Chest PA and Lateral Date of Exam: 09/17/13 Exam# [id number] Ordering Dr: Chaparrita Albrecht DO STUDY: X-RAY [...] MD at 20:44 EDT , Service support [phone], RAD/Chest PA and Lateral IMPRESSION: No focal infiltrate or edema. Electronic ally Signed: David Bennett MD at 20:44 EDT , Service support [phone], CC: Chaparrita Albrecht DO Dowel Pointer: Signed 17-Sep-2013 Spirometry (84203) Result: 29-Aug-2013 Carotid Duplex Ultrasound Result: Comments: See Note; NOTES: [facility] Cardiovascular Services [address] [place] [address] Carotid Duplex Ultrasound 08/24/13 0939 MR#: [id number] Acct: [id number] Chalo e: CLARENCE ALBERT Rep #: [id number] : 1940 73 From: Anurag Loya MD [...] in the left bulb. Procedure Carotid Duplex 76279. Exam perfor med in department. Interpretation Summary Mild (<50%) stenosis right extracranial internal carotid. Mild (<50%) stenosis left extracranial internal carotid. Flow within the vertebra l arteries is antegrade bilaterally. Ordering Physician: Chaparrita Albrecht Performed By: Kendal Benton RVT : Chaparrita Albrecht DO Date Dictated: 08/24/13 0939 Date Transcribed: 08/29/13 1118 Dowel Pointer: Signed Immunization Name Dates Details Influenza (3 years and up) on: 16-Jan-2008 Comments: Lot #: [id number] date: 09/10Amount given: 0.5 mlRoute: IMSite given: Left deltoidGiven by: Olivia Bell LPN Influenza (3 years and up) on: 09-Jan-2009 Comments: Lot #[id number]-left deltoidDose0.5mlgiven by Marycarmen Jorge LPN Pneumococcal (2 years and up) on: 29-Aug-2007 Comments: 0.5cc given im lt arm [id number] exp 02-13-08 Family History Unknown Family Member [...] Description Value Details :24 HgA1C , Office (71837) HgA1C , Office 6.5 % (Normal) Range: 4.6 - 7.1 :14 LIPID PANEL (24959) Comments: PATIENT WAS FASTINGPERFORMED BY: [facility]Rsckpb8783 [facility] [id number] LDL/HDL Ratio 1.1 {ratio} (Normal) Range: 0.0-3.2 [...] (Normal) Range: 100-199 :14 Vitamin D Hydroxy (28543) Comments: PATIENT WAS FASTINGPERFORMED BY: [facility]Omotmf2333 [facility] [id number] Vitamin D, 25-Hydroxy 37.8 ng/mL (Normal) Range: 30.0-100.0 Comments: Vitamin D deficiency has been defined by the [place] [facility] and an Endocrine Society practice guideline as alevel of serum 25-OH vitamin D less than 20 ng/mL (1,2).The Endocrine Society went on to further define vitamin Dinsufficiency as a level between 21 and 29 ng/mL (2).1. IOM ([place] of Medicine). 2010. Dietary reference intakes for calcium and D. [place]: The National Academies Press.2. Mira MF, Rosette LOPEZ, Tommy SWAIN, et al. Evaluation, treatment, and prevention of vitamin D deficiency: an Endocrine Society clinical practice guideline. JCEM. 2010; 96(7):1911-30. :14 CBC with auto diff (12731) Comments: PATIENT WAS FASTINGPERFORMED BY: [facility] Klikmz3466 [facility] [id number] Immature Grans (Abs) 0.0 {x10E3/uL} (Normal) Range: [...] COMPREHENSIVE Comments: PATIENT WAS FASTINGPERFORMED BY: [facility]Zflwvn1786 [facility] [id number] (91699) ALT (SGPT) 10 [iU]/L (Normal) Range: 0-32 [...] CREATININE RATIO Comments: PATIENT WAS FASTINGPERFORMED BY: [facility]Jxjgvk6284 [facility] [id number] (17646) AND (74947) Alb/Creat Ratio 4213.3 {mg/g_creat} (Abnormal) Range: 0.0-30.0 Albumin, Urine 3206.3 ug/mL (Normal) Comments: Results confirmed ondilution. Creatinine, Urine 76.1 mg/dL (Normal) :40 CBC & PLATELETS (AUTO) (15904) Comments: please fax to Dr. Austin- [phone]; PATIENT WAS FASTINGPERFORMED BY: [facility]Zwxhrv1550 [facility] [id number] Platelets 148 {x10E3/uL} (Abnormal) Range: 150-379 RDW [...] PANEL Comments: please fax to Dr. Austin- [phone]; PATIENT WAS FASTINGPERFORMED BY: [facility]6370 [facility] [id number] Information: [id number],K13886 FX DR. SANTANA (69836) Albumin 3.1 g/dL (Abnormal) Range: 3.5-4.8 Phosphorus [...] 133 mg/dL (Abnormal) Range: 65-99 :40 MAGNESIUM (56127) Comments: please fax to Dr. Austin- [phone]; PATIENT WAS FASTINGPERFORMED BY: [facility] Dovqcp7559 [facility] [id number] Magnesium 1.9 mg/dL (Normal) Range: 1.6-2.3 29-Cti-02033:40 CALCIFEDIOL (15404) Comments: please fax to Dr. Austin- [phone]; PATIENT WAS FASTINGPERFORMED BY: [facility] Zbmkdt9526 [facility] [id number] Vitamin D, 25-Hydroxy 29.4 ng/mL (Abnormal) Range: 30.0-100.0 Comments: Vitamin D deficiency has been defined by the [place] [facility] and an Endocrine Society practice guideline as alevel of serum 25-OH vitamin D less than 20 ng/mL (1,2).The Endocrine Society went on to further define vitamin Dinsufficiency as a level between 21 and 29 ng/mL (2).1. IOM ([place] of Medicine). 2010. Dietary reference intakes for calcium and D. [place]: The National Academies Press.2. Mira MF, Rosette LOPEZ, Tommy SWAIN, et al. Evaluation, treatment, and prevention of vitamin D deficiency: an Endocrine Society clinical practice guideline. JCEM. 2010; 96(7):1911-30. :40 PARATHORMONE (00001) Comments: please fax to Dr. Austin- [phone]; PATIENT WAS FASTINGPERFORMED BY: [facility]E [facility] Yirmfw0405 [address] [place] [id number] PTH, Intact 22 pg/mL (Normal) Range: 15-65 :30 COLON BIOPSY (CHOOSE See Note (Normal) Comments: [facility] [address] [place], [address] SITE) Comments: Patient: CLARENCE ALBERT : 1940 (77/F) Acct Num: [id number] Phys: Mracus Caldera Unit Num: [id number] Loc: [facility] Specimen: [id number] Received: 09/16/171528 Spec Type: C OLON BX [...] one cassette. / MARCY:dustin 09/19/17 TC:1 CPT: 26667 x2 HEADER OPERATION: Colonoscopy PRE-OP DIAGNOSIS: History [...] PANEL, COMPREHENSIVE Comments: PATIENT NOT FASTINGPERFORMED BY: [facility]Hgssmj7081 [facility] [id number] (73154) ALT (SGPT) 14 [iU]/L (Normal) Range: 0-32 [...] (Abnormal) Range: 65-99 :07 HgA1C , Office (32053) HgA1C , Office 7.2 % (Abnormal) Range: 4.6 - 7.1 :37 Clostridium difficile Toxin Comments: PATIENT NOT FASTINGPERFORMED BY: [facility]Accgzc3214 [facility] [id number] A+B, EIA (78130) C difficile Toxins A+B, EIA Negative (Normal) :37 LEUKOCYTE COUNT, FECAL (96087) Comments: PATIENT NOT FASTINGPERFORMED BY: [facility]6370 [facility] [id number] Result 1 NWBC (Normal) Comments: No white blood cells seen. White Blood Cells (WBC), Final report (Normal) Stool :37 OVA & PARASITE DIR SMEAR Comments: PATIENT NOT FASTINGPERFORMED BY: [facility] [id number] (06726) Result 1 NOCP (Normal) Comments: No ova, cysts, or parasites seen. Ova + Parasite Exam Final report (Normal) Comments: These results were obtained using wet preparation(s) and trichromestained smear. This test does not include testing for Cryptosporidiumparvum, Cyclospora, or Microsporidia. :37 SETH CULTURE-STOOL (42617) Comments: PATIENT NOT FASTINGPERFORMED BY: [facility] [id number] Information: SRC:ST SRC:ST E coli Shiga Toxin EIA Negative (Normal) Result 1 NCI (Normal) Comments: No Campylobacter species isolated. Campylobacter Culture Final report (Normal) Result 1 NSS (Normal) Comments: No Salmonella or Shigella recovered. Salmonella/Shigella Screen Final report (Normal) :06 Renal function Panel Comments: fax copy to Dr. Santana [phone]; A courtesy copy of this report has been sent [phone].PATIENT NOT FASTINGPERFORMED BY: [facility] [facility] [id number] Information: NURSE DRAW (46791) Albumin 3.5 g/dL (Normal) Range: 3.5-4.8 Phosphorus [...] copy of this report has been sent [phone].PATIENT NOT FASTINGPERFORMED BY: [facility] [id number] :02 Range: 15-65 Vitamin D, 25-Hydroxy 34.7 ng/mL (Normal) Comments: A courtesy copy of this report has been sent [phone].PATIENT NOT FASTINGPERFORMED BY: Aionex6370 [facility] [id number] :02 Range: 30.0-100.0 Comments: Vitamin D deficiency has been defined by the [place] of[place]icine and an Endocrine Society practice guideline as alevel of serum 25-OH vitamin D less than 20 ng/mL (1,2).The Endocrine Society went on to further define vitamin Dinsufficiency as a level between 21 and 29 ng/mL (2).1. IOM ([place] of Medicine). 2010. Dietary reference intakes for calcium and D. [place]: The National Academies Press.2. Mira MF, Rosette NC, Tommy SWAIN, et al. Evaluation, treatment, and prevention of vitamin D deficiency: an Endocrine Society clinical practice guideline. JCEM. 2010; 96(7):1911-30. 5-Zdo-048183:02 MICROALBUMIN: CREATININE RATIO Comments: send results to Dr. Santana fax: [phone]; A courtesy copy of this report has been sent [phone].PATIENT NOT FASTINGPERFORMED BY: [employer] Myojxo0371 [facility] [id number] (96658) AND (17673) Alb/Creat Ratio 4191.2 {mg/g_creat} (Abnormal) Range: 0.0-30.0 Albumin, Urine 2380.6 ug/mL (Normal) Comments: Results confirmed ondilution. Creatinine, Urine 56.8 mg/dL (Normal) 3-Igk-400461:02 CBC, PLATELETS & MANUAL Comments: send results to Dr. Santana fax: [phone]; A courtesy copy of this report has been sent [phone].PATIENT NOT FASTINGPERFORMED BY: [facility] [id number] Information: VIT D25, PTH DIFF (88118) Immature Grans (Abs) 0.0 {x10E3/uL} (Normal) Range: [...] 3.77-5.28 WBC 5.4 {x10E3/uL} (Normal) Range: 3.4-10.8 0-Tgw-837067:02 MAGNESIUM (08530) Comments: send results to Dr. Santana fax: [phone]; A courtesy copy of this report has been sent [phone].PATIENT NOT FASTINGPERFORMED BY: [employer]70 [facility] [id number] Magnesium, Serum 1.8 mg/dL (Normal) Range: 1.6-2.3 3-Lii-090720:02 RENAL FUNCTION PANEL (28698) Comments: send results to Dr. Santana fax: [phone]; A courtesy copy of this report has been sent [phone].PATIENT NOT FASTINGPERFORMED BY: [employer]70 [facility] [id number] Albumin, Serum 3.7 g/dL (Normal) Range: 3.5-4.8 [...] Glucose, Serum 119 mg/dL (Abnormal) Range: 65-99 4-Imj-657094:07 LIPID PANEL (72387) Comments: PATIENT WAS FASTINGPERFORMED BY: [employer] Omrnfe9475 [facility] [id number] LDL/HDL Ratio 1.4 {ratio} (Normal) Range: 0.0-3.2 Comments: LDL/HDL Ratio Men Women 1/2 Avg.Risk 1.0 1.5 Av g.Risk 3.6 3.2 2X Avg.Risk 6.2 5.0 3X Avg.Risk 8.0 6.1 LDL Cholesterol Calc 102 mg/dL (Abnormal) Range: 0-99 VLDL Cholesterol Cesar 17 mg/dL (Normal) Range: 5-40 HDL Cholesterol 75 mg/dL (Normal) Triglycerides 84 mg/dL (Normal) Range: 0-149 Cholesterol, Total 194 mg/dL (Normal) Range: 100-199 3-Akd-346341:07 CBC W/AUTO DIFF WBC (23629) Comments: PATIENT WAS FASTINGPERFORMED BY: [facility] Elyxza8355 [facility] [id number] Immature Grans (Abs) 0.0 {x10E3/uL} (Normal) Range: [...] 3.77-5.28 WBC 4.8 {x10E3/uL} (Normal) Range: 3.4-10.8 6-Kod-430801:07 METABOLIC PANEL, COMPREHENSIVE Comments: PATIENT WAS FASTINGPERFORMED BY: EVE [employer] Entertainmentsyl EmersonMjshtj9508 [facility] [id number] (19695) ALT (SGPT) 14 [iU]/L (Normal) Range: 0-32 [...] 8-27 Glucose 158 mg/dL (Abnormal) Range: 65-99 0-Eic-112538:07 VITAMIN B-12 (CYANOCOBALAMIN) Comments: PATIENT WAS FASTINGPERFORMED BY: EVE Avocado EntertainmentVirtua Mt. Holly ([facility])Kkgvzs7046 [facility] [id number] (96510) Vitamin B12 771 pg/mL (Normal) Range: 232-1245 13-May-20170:00 CDIFF (Molecular) Comments: [facility] Ewjwruuifb7407 FABRIZIO Amanda, [address] CDIFF See Note (Normal) Comments: Cdiff-MolecularNormal Reference Range = Negative C. Diff DNA Negative- No toxigenic C. Diff DNA DetectedNAAT METHOD Testing was performed using nucleic acid amplification :32 Rapid Flu (33677 x 2) Influenza A Ag Negative (Normal) :35 CBC with auto diff (14217) Comments: PATIENT WAS FASTINGPERFORMED BY: [facility] Ktnwlj8637 [facility] [id number] Immature Grans (Abs) 0.0 {x10E3/uL} (Normal) Range: [...] COMPREHENSIVE Comments: PATIENT WAS FASTINGPERFORMED BY: [facility] Shevsk5492 [facility] [id number] (70884) ALT (SGPT) 16 [iU]/L (Normal) Range: 0-32 [...] (Abnormal) Range: 65-99 :51 HgA1C , Office (80184) HgA1C , Office 6.7 % (Normal) Range: 4.6 - 7.1 :50 CALCIFEDIOL (88807) Comments: A courtesy copy of this report has been sent [phone].PATIENT WAS FASTINGPERFORMED BY: Aionex6370 [place] [id number] Vitamin D, 25-Hydroxy 40.7 ng/mL (Normal) Range: 30.0-100.0 Comments: Vitamin D deficiency has been defined by the [place] of[place]icine and an Endocrine Society practice guideline as alevel of serum 25-OH vitamin D less than 20 ng/mL (1,2).The Endocrine Society went on to further define vitamin Dinsufficiency as a level between 21 and 29 ng/mL (2).1. IOM ([place] of Medicine). 2010. Dietary reference intakes for calcium and D. [place]: The National Academies Press.2. Mira MF, Rosette LOPEZ, Tommy SWAIN, et al. Evaluation, treatment, and prevention of vitamin D deficiency: an Endocrine Society clinical practice guideline. JCEM. 2010; 96(7):1911-30. 4-Ukn-964024:50 PTH (PARATHORMONE) (54189) Comments: A courtesy copy of this report has been sent [phone].PATIENT WAS FASTINGPERFORMED BY: Aionex6370 [place] [id number] PTH, Intact 20 pg/mL (Normal) Range: 15-65 5-Gnh-242199:50 MICROALBUMIN: CREATININE RATIO Comments: A courtesy copy of this report has been sent [phone].PATIENT WAS FASTINGPERFORMED BY: [employer] Kqsoal7646 [facility] [id number] (95222) AND (62321) Microalb/Creat Ratio 4376.0 {mg/g_creat} (Abnormal) Range: 0.0-30.0 Microalbumin, Urine 3369.5 ug/mL (Normal) Comments: Results confirmed ondilution. Creatinine, Urine 77.0 mg/dL (Normal) 1-Wzw-728977:50 Renal function Panel Comments: A courtesy copy of this report has been sent [phone].PATIENT WAS FASTINGPERFORMED BY: CB [facility] Room [address] [place] [id number] Information: FX DR. SANTANA [phone] (50975) Albumin, Serum 3.8 g/dL (Normal) Range: 3.5-4.8 [...] Glucose, Serum 203 mg/dL (Abnormal) Range: 65-99 1-Tri-357141:50 Magnesium (97476) Comments: A courtesy copy of this report has been sent [phone].PATIENT WAS FASTINGPERFORMED BY: Avocado EntertainmentVirtua Mt[facility] ([facility])Pokbxj3311 [facility] [id number] Magnesium, Serum 1.8 mg/dL (Normal) Range: 1.6-2.3 2-Ocz-400244:53 CBC with auto diff (02146) Comments: A courtesy copy of this report has been sent [phone].PATIENT WAS FASTINGPERFORMED BY: [facility] [id number] Immature Grans (Abs) 0.0 {x10E3/uL} (Normal) Range: [...] {x10E3/uL} (Normal) Range: 3.4-10.8 :53 LIPID PANEL (85599) Comments: A courtesy copy of this report has been sent [phone].PATIENT WAS FASTINGPERFORMED BY: LabCoVirtua Mt. Holly ([facility])Rjamyv3972 [facility] [id number] LDL/HDL Ratio 1.2 {ratio_units} (Normal) Range: 0.0-3.2 [...] copy of this report has been sent [phone].PATIENT WAS FASTINGPERFORMED BY: [employer] Xirdld0009 [facility] [id number] (42740) ALT (SGPT) 11 [iU]/L (Normal) Range: 0-32 [...] Glucose, Serum 205 mg/dL (Abnormal) Range: 65-99 69-Poj-633519:57 HgA1C , Office (47254) HgA1C , Office 7.1 % (Normal) Range: 4.6 - 7.1 :09 LIPID PANEL (23573) Comments: PATIENT WAS FASTINGPERFORMED BY: LabTalkPlusWinslow Indian Health Care CenterSlgnxx8916 [facility] [id number] LDL/HDL Ratio 1.3 {ratio_units} (Normal) Range: 0.0-3.2 [...] COMPREHENSIVE Comments: PATIENT WAS FASTINGPERFORMED BY: LabCoVirtua Mt. [facility] ([facility])Ptdymz3814 [facility] [id number] (89707) ALT (SGPT) 12 [iU]/L (Normal) Range: 0-32 [...] (Abnormal) Range: 65-99 :50 HgA1C , Office (85733) HgA1C , Office 6.7 % (Normal) Range: 4.6 - 7.1 :25 Magnesium, Serum 1.9 mg/dL (Normal) Comments: PATIENT WAS FASTINGPERFORMED BY: [facility] Suoipw2680 [address] RoadDublin [place] [id number] Range: 1.6-2.3 :25 Microalb/Creat Ratio, Randm Ur Comments: PATIENT WAS FASTINGPERFORMED BY: Positionly LabTalkPlusrp Dhbdgw8560 [address] RoadDublin [place] [id number] Microalb/Creat Ratio 2652.0 {mg/g_creat} Range: 0.0-30.0 (Abnormal) Microalbumin, Urine 2482.3 ug/mL (Normal) Comments: Results confirmed ondilution. Creatinine, Urine 93.6 mg/dL (Normal) PTH, Intact 26 pg/mL (Normal) Comments: PATIENT WAS FASTINGPERFORMED BY: LabTalkPlusrp Isgabx2058 [address] RoadDublin [place] [id number] :25 Range: 15-65 :25 Renal Panel (10) Comments: PATIENT WAS FASTINGPERFORMED BY: [facility] Yqnweb8303 [address] RoadDublin [place] [id number] Phosphorus, Serum 4.3 mg/dL (Normal) Range: 2.5-4.5 :25 Thyroxine (T4) Free, Direct, S Comments: PATIENT WAS FASTINGPERFORMED BY: Positionly [facility] Vjgpch3812 [address] RoadDublin [place] [id number] T4,Free(Direct) 1.08 ng/dL (Normal) Range: 0.82-1.77 : TSH 2.980 {uIU/mL} Comments: PATIENT WAS FASTINGPERFORMED BY: Positionly [facility] Fbsqzn2438 [address] RoadDublin [place] [id number] 25 (Normal) Range: 0.450-4.500 2-May-11738: Vitamin D, 25-Hydroxy 37.1 ng/mL (Normal) Comments: PATIENT WAS FASTINGPERFORMED BY: [employer] Mrbpqd6152 [facility] [id number] 25 Range: 30.0-100.0 Comments: Vitamin D deficiency has been defined by the [place] ofL[facility] Hospitalcine and an Endocrine Society practice guideline as alevel of serum 25-OH vitamin D less than 20 ng/mL (1,2).The Endocrine Society went on to further define vitamin Dinsufficiency as a level between 21 and 29 ng/mL (2).1. IOM ([place] of Medicine). 2010. Dietary reference intakes for calcium and D. [place]: The National Academies Press.2. Mira MF, Rosette NC, Tommy SWAIN, et al. Evaluation, treatment, and prevention of vitamin D deficiency: an Endocrine Society clinical practice guideline. JCEM. 2010; 96(7):1911-30. -Aug-20169:25 CBC W/AUTO DIFF WBC (60576) Comments: PATIENT WAS FASTINGPERFORMED BY: [facility] Bctcsi3995 [facility] [id number] Immature Grans (Abs) 0.0 {x10E3/uL} (Normal) Range: [...] COMPREHENSIVE Comments: PATIENT WAS FASTINGPERFORMED BY: LabCoVirtua Mt[facility] ([facility])Ncbxki4630 [facility] [id number]; non- emergent till apt (98486) ALT (SGPT) 10 [iU]/L (Normal) Range: 0-32 [...] mg/dL (Abnormal) Range: 65-99 :25 LIPID PANEL (54166) Comments: PATIENT WAS FASTINGPERFORMED BY: ACACIA SemiconductorMcl[facility]6370 [facility] [id number] LDL/HDL Ratio 0.9 {ratio_units} (Normal) Range: 0.0-3.2 Comments: LDL/HDL Ratio Men Women 1/2 Avg.Risk 1.0 1.5 Av g.Risk 3.6 3.2 2X Avg.Risk 6.2 5.0 3X Avg.Risk 8.0 6.1 LDL Cholesterol Calc 65 mg/dL (Normal) Range: 0-99 VLDL Cholesterol Cesar 19 mg/dL (Normal) Range: 5-40 HDL Cholesterol 75 mg/dL (Normal) Triglycerides 93 mg/dL (Normal) Range: 0-149 Cholesterol, Total 159 mg/dL (Normal) Range: 100-199 64-Rtw-561685:54 HgA1C , Office (67349) HgA1C , Office 6.6 % (Normal) Range: 4.6 - 7.1 88-Bqp-840031:1 Magnesium, Serum 2.1 mg/dL (Normal) Comments: PATIENT WAS FASTINGPERFORMED BY: ACACIA SemiconductorMclaren [facility]6370 [facility] [id number] 2 Range: 1.6-2.3 12-Jap-218334:12 Microalb/Creat Ratio, Randm Ur Comments: PATIENT WAS FASTINGPERFORMED BY: ACACIA SemiconductorMclaren [facility]6370 [facility] [id number] Microalb/Creat Ratio 1863.4 {mg/g_creat} (Abnormal) Range: 0.0-30.0 Microalbumin, Urine 1416.2 ug/mL (Normal) Comments: Results confirmed ondilution. Creatinine, Urine 76.0 mg/dL (Normal) 79-Cpy-502752:12 Microscopic Examination Comments: PATIENT WAS FASTINGPERFORMED BY: [facility]6370 [facility] [id number] Bacteria None seen (Normal) Mucus Threads Present (Normal) Cast Type Hyaline casts (Normal) Casts Present {/lpf} (Abnormal) Epithelial Cells (non 0-10 {/hpf} Range: 0 - 10 renal) (Normal) RBC 3-10 {/hpf} Range: 0 - 2 (Abnormal) WBC 6-10 {/hpf} Range: 0 - 5 (Abnormal) PTH, Intact 36 pg/mL (Normal) Comments: PATIENT WAS FASTINGPERFORMED BY: [employer] Czbpmo5180 [facility] [id number] 0:12 Range: 15-65 Vitamin D, 25-Hydroxy 42.9 ng/mL (Normal) Comments: PATIENT WAS FASTINGPERFORMED BY: [employer] Iwdadh8657 [facility] [id number] 0:12 Range: 30.0-100.0 Comments: Vitamin D deficiency has been defined by the [place] ofL[facility] Hospitalcine and an Endocrine Society practice guideline as alevel of serum 25-OH vitamin D less than 20 ng/mL (1,2).The Endocrine Society went on to further define vitamin Dinsufficiency as a level between 21 and 29 ng/mL (2).1. IOM ([place] of Medicine). 2010. Dietary reference intakes for calcium and D. [place]: The National Academies Press.2. Mira MF, Rosette NC, Tommy SWAIN, et al. Evaluation, treatment, and prevention of vitamin D deficiency: an Endocrine Society clinical practice guideline. JCEM. 2010; 96(7):1911-30. 21-Gcx-274979:12 URINALYSIS, W/ MICRO (26188) Comments: PATIENT WAS FASTINGPERFORMED BY: [facility] Ikebui6932 [facility] [id number] Microscopic Examination See below: (Normal) Comments: Microscopic was indicated and was performed. Nitrite, Urine Negative (Normal) Urobilinogen,Semi-Qn 0.2 mg/dL (Normal) Range: 0.2-1.0 Bilirubin Negative (Normal) Occult Blood Negative (Normal) Ketones Negative (Normal) Glucose Negative (Normal) Protein 4+ (Abnormal) WBC Esterase Trace (Abnormal) Appearance Clear (Normal) Urine-Color Yellow (Normal) pH 6.0 (Normal) Range: 5.0-7.5 Specific Spencer 1.015 (Normal) Range: 1.005-1.030 57-Tjf-044847:12 CBC W/AUTO DIFF WBC (73164) Comments: PATIENT WAS FASTINGPERFORMED BY: Avocado EntertainmentWinslow Indian Health Care CenterUychln4961 [facility] [id number] Immature Grans (Abs) 0.0 {x10E3/uL} (Normal) Range: [...] 3.77-5.28 WBC 6.2 {x10E3/uL} (Normal) Range: 3.4-10.8 68-Hgs-029662:12 METABOLIC PANEL, COMPREHENSIVE Comments: PATIENT WAS FASTINGPERFORMED BY: [facility] EntertainmentVirtua Mt[facility] ([facility])Ylnrrh6667 [facility] [id number] (91223) ALT (SGPT) 14 [iU]/L (Normal) Range: 0-32 [...] Glucose, Serum 154 mg/dL (Abnormal) Range: 65-99 88-Luv-079111:12 LIPID PANEL (88722) Comments: PATIENT WAS FASTINGPERFORMED BY: LabPark[facility] Bqyqrc6862 [facility] [id number] LDL/HDL Ratio 0.7 {ratio_units} (Normal) Range: 0.0-3.2 Comments: LDL/HDL Ratio Men Women 1/2 Avg.Risk 1.0 1.5 Av g.Risk 3.6 3.2 2X Avg.Risk 6.2 5.0 3X Avg.Risk 8.0 6.1 LDL Cholesterol Calc 49 mg/dL (Normal) Range: 0-99 VLDL Cholesterol Cesar 14 mg/dL (Normal) Range: 5-40 HDL Cholesterol 75 mg/dL (Normal) Triglycerides 68 mg/dL (Normal) Range: 0-149 Cholesterol, Total 138 mg/dL (Normal) Range: 100-199 56-Xto-702714:50 HgA1C , Office (40756) HgA1C , Office 6.7 % (Normal) Range: 4.6 - 7.1 56-Ybv-590990:36 VITAMIN B-12 (CYANOCOBALAMIN) Comments: PATIENT WAS FASTINGPERFORMED BY: [facility]6370 [facility] [id number] (56934) Vitamin B12 802 pg/mL (Normal) Range: 211-946 78-Vjg-475725:36 LIPID PANEL (38441) Comments: PATIENT WAS FASTINGPERFORMED BY: [facility]6370 [facility] [id number] LDL/HDL Ratio 0.8 {ratio_units} (Normal) Range: 0.0-3.2 [...] Cholesterol, Total 161 mg/dL (Normal) Range: 100-199 32-Jvm-070672:36 LDH (LD) (LACTATE DEHYDROGENASE) Comments: PATIENT WAS FASTINGPERFORMED BY: [facility]6370 [facility] [id number] (64922) LDH 217 [iU]/L (Normal) Range: 119-226 85-Xwb-954713:36 CBC W/AUTO DIFF WBC (95968) Comments: PATIENT WAS FASTINGPERFORMED BY: [facility]6370 [facility] [id number] Immature Grans (Abs) 0.0 {x10E3/uL} (Normal) Range: [...] 3.77-5.28 WBC 10.6 {x10E3/uL} (Normal) Range: 3.4-10.8 11-Qfr-390171:36 METABOLIC PANEL, COMPREHENSIVE Comments: PATIENT WAS FASTINGPERFORMED BY: LabCoVirtua [facility])Gtolmy9436 [facility] [id number] (93098) ALT (SGPT) 15 [iU]/L (Normal) Range: 0-32 [...] Glucose, Serum 137 mg/dL (Abnormal) Range: 65-99 15-Wue-643301:36 TSH (29366) Comments: PATIENT WAS FASTINGPERFORMED BY: [employer]6370 [facility] [id number] TSH 0.560 {uIU/mL} (Normal) Range: 0.450-4.500 93-Roq-71986:02 Renal function Panel (49580) Comments: PATIENT WAS FASTINGPERFORMED BY: [employer] LabTechnisys Mrekpj3444 [facility] [id number] Albumin, Serum 3.7 g/dL (Normal) Range: 3.5-4.8 [...] 137 mg/dL (Abnormal) Range: 65-99 :02 MAGNESIUM (64326) Comments: PATIENT WAS FASTINGPERFORMED BY: Golden Dragon HoldingsLouisville Medical Center [id number] Magnesium, Serum 2.2 mg/dL (Normal) Range: 1.6-2.3 :02 MICROALBUMIN: CREATININE RATIO Comments: PATIENT WAS FASTINGPERFORMED BY: [employer]70 [facility]est[facility] [id number] (57481) AND (19386) Microalb/Creat Ratio 2038.7 {mg/g_creat} (Abnormal) Range: 0.0-30.0 Microalbumin, Urine 1223.2 ug/mL (Normal) Comments: Results confirmed ondilution. Creatinine, Urine 60.0 mg/dL (Normal) :02 CBC WITH MANUAL DIFF Comments: PATIENT WAS FASTINGPERFORMED BY: Aionex6370 [facility]estAt[facility] [id number] Information: [id number] (75350) Immature Grans (Abs) 0.0 {x10E3/uL} (Normal) Range: [...] {x10E3/uL} (Normal) Range: 3.4-10.8 :02 HGB A1C (52235) Comments: PATIENT WAS FASTINGPERFORMED BY: Aionex6370 [facility] [id number] Hemoglobin A1c 6.4 % (Abnormal) Range: 4.8-5.6 Comments: . Pre-diabetes: 5.7 - 6.4 Diabetes: >6.4 Glycemic control for adults with diabetes: <7.0 :02 Lipid Panel (21495) Comments: PATIENT WAS FASTINGPERFORMED BY: [employer]70 [facility] [id number] LDL/HDL Ratio 1.1 {ratio_units} (Normal) Range: 0.0-3.2 [...] Cholesterol, Total 160 mg/dL (Normal) Range: 100-199 91-Vhc-545360:03 HgA1C , Office (60996) HgA1C , Office 6.1 % (Normal) Range: 4.6 - 7.1 :24 CBC W/AUTO DIFF WBC Comments: PATIENT WAS FASTINGPERFORMED BY: LabCoVirtua [facility])Arxwrf3598 [facility] [id number] Information: [id number] (06763) Immature Grans (Abs) 0.0 {x10E3/uL} (Normal) Range: [...] CREATININE RATIO Comments: PATIENT WAS FASTINGPERFORMED BY: Noble Life SciencesWinslow Indian Health Care CenterJyajrf3389 [facility] [id number] (98658) AND (16955) Microalb/Creat Ratio 1223.8 {mg/g_creat} (Abnormal) Range: 0.0-30.0 Microalbumin, Urine 1012.1 ug/mL (Abnormal) Range: 0.0-17.0 Comments: Results confirmed ondilution. Creatinine, Urine 82.7 mg/dL (Normal) Range: 15.0-278.0 :24 METABOLIC PANEL, COMPREHENSIVE Comments: PATIENT WAS FASTINGPERFORMED BY: [employer] Gmhuqq3016 [facility] [id number] (55979) ALT (SGPT) 12 [iU]/L (Normal) Range: 0-32 [...] mg/dL (Abnormal) Range: 65-99 :24 LIPID PANEL (42922) Comments: PATIENT WAS FASTINGPERFORMED BY: LabCoVirtua [facility])Pgwfto9879 [facility] [id number] LDL/HDL Ratio 1.1 {ratio_units} (Normal) Range: 0.0-3.2 [...] Range: 100-199 :30 CBC W/Diff, Automated Comments: [facility] Agrkpopbmj34[address] [place], [place], [id number] Absolute Lymph 0.83 {X10_3/ul} (Normal) Range: 0.83-4.51 [...] (Normal) Range: 4.4-11.0 :30 Hemoglobin A1c Comments: [address] [place], [place], [phone](019) HGB A1C 6.1 % (Normal) Range: 4.2-6.3 :30 Magnesium Comments: [address], [id number](202) MG 1.8 mg/dL (Normal) Range: 1.8-2.4 :30 Protein+Creatinine Ratio,Urine Comments: [address], [id number](290) PROT:CRE RATIO 2121 {mg/g_CRE} (Abnormal) Range: 0-200 PROTEIN,UR.RAN. 164.2 mg/dL (Abnormal) UR CREAT 77.40 mg/dL (Normal) :30 Renal Profile Comments: [address] [place], [place], [id number](548) CO2 27.0 mmol/L (Normal) Range: 21.0-32.0 CL [...] 126 mg/dLsuggests DIABETES MELLITUS per A.D.A. criteria. 52-Ovr-51288:00 24 HR UR Creatinine Clearance Comments: [facility] Wiylfyxxjh5163 [facility]. [place], [place], [phone] CREAT CLEARANCE 24 ml/min (Abnormal) Range: 100-200 URINE CREAT 20.6 mg/dL (Normal) EST GFR - AA 38 mL/min (Abnormal) Comments: GFR Calc EST GFR 31 mL/min (Abnormal) Comments: Non- GFR Calc SERUM CREAT 1.7 mg/dL (Abnormal) Range: 0.6-1.0 UR TOTAL VOLUME 2800 mL (Normal) UR COLLECT TIME 24.0 {HOURS} (Normal) 74-Yud-26800:00 Protein, Urine 24HR Comments: [facility] Stscqgqqfm9731 [facility] [place], [address] 24hr UR PROTEIN 1178.8 {mg/24HR} (Abnormal) URINE PROTEIN 42.1 mg/dL (Abnormal) UR TOTAL VOLUME 2800 mL (Normal) UR COLLECT TIME 24.0 {HOURS} (Normal) 2-Ybr-658750:29 Metabolic Panel, Basic Comments: PATIENT NOT FASTINGPERFORMED BY: LabCoVirtua Mt[facility] ([facility])Rgpvyw7574 [facility] [id number] Information: [id number] (33194) Calcium, Serum 9.3 mg/dL (Normal) Range: 8.7-10.3 [...] Glucose, Serum 102 mg/dL (Abnormal) Range: 65-99 66-Yty-21637:39 Metabolic Panel, Basic Comments: tuesday; PATIENT NOT FASTINGPERFORMED BY: [facility] Mpleta5869 [facility] [id number] Information: [id number] (37288) Calcium, Serum 9.0 mg/dL (Normal) Range: 8.7-10.3 [...] Glucose, Serum 149 mg/dL (Abnormal) Range: 65-99 42-Wdc-899589:32 HgA1C , Office (90878) HgA1C , Office 6.2 % (Normal) Range: 4.6 - 7.1 :31 Rapid Strep Test, Office (73481) Comments: neg Rapid Strep Test, Office Negative (Normal) :06 THROAT CULTURE (36809) Comments: PATIENT NOT FASTINGPERFORMED BY: CB [facility] Zzpypt3484 [address] RoadDublin [place] [id number] Information: [id number] Result 1 RRF (Normal) Comments: Routine respiratory luis Upper Respiratory Culture Final report (Normal) :52 TSH (29992) Comments: PATIENT WAS FASTINGPERFORMED BY: CB [facility] Mymlje7780 [address] RoadDublin [place] [id number] TSH 2.190 {uIU/mL} (Normal) Range: 0.450-4.500 :52 Vitamin D Hydroxy (96298) Comments: PATIENT WAS FASTINGPERFORMED BY: CB [facility] Tbinav6771 [address] RoadDublin [place] [id number] Vitamin D, 25-Hydroxy 43.8 ng/mL (Normal) Range: 30.0-100.0 Comments: Vitamin D deficiency has been defined by the [place] ofMedicine and an Endocrine Society practice guideline as alevel of serum 25-OH vitamin D less than 20 ng/mL (1,2).The Endocrine Society went on to further define vitamin Dinsufficiency as a level between 21 and 29 ng/mL (2).1. IOM ([place] of Medicine). 2010. Dietary reference intakes for calcium and D. [place]: The National Academies Press.2. Mira MF, Rosette [place], Tommy SWAIN, et al. Evaluation, treatment, and prevention of vitamin D deficiency: an Endocrine Society clinical practice guideline. JCEM. 2010; 96(7):1911-30. :52 LIPID PANEL (69851) Comments: PATIENT WAS FASTINGPERFORMED BY: CB [facility] Zxevtw6459 [address] RoadDublin [place] [id number] LDL/HDL Ratio 1.3 {ratio_units} (Normal) Range: 0.0-3.2 [...] auto diff Comments: PATIENT WAS FASTINGPERFORMED BY: [facility])Ghvndp0024 [facility] [id number] Information: [id number] (45558) Immature Grans (Abs) 0.0 {x10E3/uL} (Normal) Range: [...] COMPREHENSIVE Comments: PATIENT WAS FASTINGPERFORMED BY: [facility])Hvyzhj9395 [facility] [id number] (66489) ALT (SGPT) 19 [iU]/L (Normal) Range: 0-32 [...] (Abnormal) Range: 65-99 :08 HgA1C , Office (11148) HgA1C , Office 6.4 % (Normal) Range: 4.6 - 7.1 5-Fgo-489667:00 Creatinine Clearance Comments: PATIENT NOT FASTINGPERFORMED BY: [facility]6370 [facility] [id number] Information: [id number] S TART Creatinine Clearance 33 mL/min (Abnormal) Range: 88-128 Comments: The above range is based on 1.73 square meter average body surfacearea. Creatinine, Ur 24hr 642.0 {mg/24_hr} (Abnormal) Range: 800.0-1800.0 Creatinine, Urine 34.7 mg/dL (Normal) Range: 15.0-278.0 eGFR If Africn Am 43 mL/min/1.73 (Abnormal) eGFR If NonAfricn Am 37 mL/min/1.73 (Abnormal) Creatinine, Serum 1.37 mg/dL (Abnormal) Range: 0.57-1.00 1-Pmy-640913:00 Protein Total, Qn, 24-Hr Comments: PATIENT NOT FASTINGPERFORMED BY: [facility]6370 [facility] [id number] Urine Prot,24hr calculated 1309.8 {mg/24_hr} (Abnormal) Range: 30.0-150.0 Protein,Total,Urine 70.8 mg/dL (Abnormal) Range: 0.0-15.0 :01 CBC W/Diff, Automated Comments: Test performed at:[facility] Wwlczwdeun[address] [place], [place] [id number] Absolute Neut 3.1 {X10_3/uL} (Normal) Range: 2.0-7.7 [...] Range: 4.4-11.0 :01 Magnesium Comments: Test performed at:[facility] J[address] [place] [address] MG 2.0 mg/dL (Normal) Range: 1.8-2.4 :01 Protein+Creatinine Ratio,Urine Comments: Test performed at:[facility] [address] [place] [address] 22840 PROT:CRE RATIO 2232 {mg/g_CRE} (Abnormal) Range: 0-200 PROTEIN,UR.RAN. 160.3 mg/dL (Abnormal) UR CREAT 71.8 mg/dL (Normal) :01 Renal Profile Comments: Test performed at:[facility] D[address] [place] [address] 37460 CO2 32.0 mmol/L (Normal) Range: 21.0-32.0 CL [...] mg/dL (Normal) Range: 70-110 :08 LIPID PANEL (53028) Comments: PATIENT WAS FASTINGPERFORMED BY: Avocado EntertainmentVirtua Mt[facility] ([facility])Oafuxj3810 [facility] [id number] LDL/HDL Ratio 1.0 {ratio_units} (Normal) Range: 0.0-3.2 [...] METABOLIC PANEL, Comments: PATIENT WAS FASTINGPERFORMED BY: [facility]ocado EntertainmentVirt[facility])Micegz3684 [facility] [id number] Information: [id number] COMPREHENSIVE (39936) ALT (SGPT) 29 [iU]/L (Normal) Range: 0-32 [...] (Abnormal) Range: 65-99 :59 HgA1C , Office (91148) HgA1C , Office 6.5 % (Normal) Range: 4.6 - 7.1 :54 CBC W/AUTO DIFF WBC Comments: PATIENT WAS FASTINGPERFORMED BY: [facility])Znvrfk7061 [facility] [id number] Information: [id number] (56841) Immature Grans (Abs) 0.0 {x10E3/uL} (Normal) Range: [...] COMPREHENSIVE Comments: PATIENT WAS FASTINGPERFORMED BY: [facility] Lppxvo6104 [facility] [id number]; non- emergent till apt (56476) ALT (SGPT) 13 [iU]/L (Normal) Range: 0-32 [...] mg/dL (Abnormal) Range: 65-99 :54 LIPID PANEL (81426) Comments: PATIENT WAS FASTINGPERFORMED BY: [facility]Wgczur3928 [facility] [id number] LDL/HDL Ratio 1.1 {ratio_units} (Normal) Range: 0.0-3.2 [...] (Normal) Range: 100-199 :29 HgA1C , Office (56778) HgA1C , Office 6.6 % (Normal) Range: 4.6 - 7.1 :12 CBC W/Diff, Automated Comments: Test performed at:[facility] Zolrgfdgvc[address] [place], [place] [id number] ; handled by Dr. Santana Absolute Lymph [...] Range: 4.4-11.0 :12 Magnesium Comments: Test performed at:[facility] [address] [place] [address]75 MG 2.0 mg/dL (Normal) Range: 1.8-2.4 :12 Microalb:Creat Ratio,Random UR Comments: Test performed at:[facility] M[address] [place] [address] ; Dr. Angelo LING:CREAT 1483.0 {mg/g_CRE} (Abnormal) MICROALBUMIN,UR 918.0 mg/L (Normal) UR CREAT 61.9 mg/dL (Normal) :12 Renal Profile Comments: Test performed at:[facility] [address] [place] [address] 14127 CO2 29.0 mmol/L (Normal) Range: 21.0-32.0 CL [...] 126 mg/dLsuggests DIABETES MELLITUS per A.D.A. criteria. 69-Ose-330606:20 LIPID PANEL (17411) Comments: PATIENT WAS FASTINGPERFORMED BY: [employer] Rijgmv0169 [facility] [id number] LDL/HDL Ratio 1.0 {ratio_units} (Normal) Range: 0.0-3.2 [...] Cholesterol, Total 151 mg/dL (Normal) Range: 100-199 18-Fzt-161784:20 METABOLIC PANEL, Comments: PATIENT WAS FASTINGPERFORMED BY: [facility]ocado EntertainmentV[facility])Eynwkq3903 [facility] [id number] Information: [id number] COMPREHENSIVE (10398) ALT (SGPT) 16 [iU]/L (Normal) Range: 0-32 [...] Glucose, Serum 148 mg/dL (Abnormal) Range: 65-99 81-Dqk-932114:21 CREATININE CLEARANCE Comments: PATIENT WAS FASTINGPERFORMED BY: EVE [facility]6370 [facility] [id number] Information: [id number] START 04/02/14@9AM FINISH 04/03/14 6:00 AM (78963) Creatinine Clearance 42 mL/min (Abnormal) Range: 88-128 Comments: The above range is based on 1.73 square meter average body surfacearea. Creatinine, Ur 24hr 812.3 {mg/24_hr} (Normal) Range: 800.0-1800.0 Creatinine, Urine 28.5 mg/dL (Normal) Range: 15.0-278.0 eGFR If Africn Am 45 mL/min/1.73 (Abnormal) eGFR If NonAfricn Am 39 mL/min/1.73 (Abnormal) Creatinine, Serum 1.33 mg/dL (Abnormal) Range: 0.57-1.00 42-Vsr-826739:21 Total Protein,24 Hour Urine Comments: PATIENT WAS FASTINGPERFORMED BY: CB [facility]6370 [facility] [id number] (70508) Prot,24hr calculated 1559.0 {mg/24_hr} (Abnormal) Range: 30.0-150.0 Protein,Total,Urine 54.7 mg/dL (Abnormal) Range: 0.0-15.0 :57 LIPID PANEL (24551) Comments: PATIENT WAS FASTINGPERFORMED BY: [facility] EntertainmentV[facility])Cxijpg2518 [facility] [id number] LDL/HDL Ratio 1.1 {ratio_units} (Normal) Range: 0.0-3.2 [...] MANUAL DIFF Comments: PATIENT WAS FASTINGPERFORMED BY: [facility]6370 [facility] [id number] Information: [id number] (33645) Immature Grans (Abs) 0.0 {x10E3/uL} (Normal) Range: [...] COMPREHENSIVE Comments: PATIENT WAS FASTINGPERFORMED BY: [facility])Joemcq5483 [facility] [id number] (06193) ALT (SGPT) 10 [iU]/L (Normal) Range: 0-32 [...] 0 Comments: Result Units: mg/dL AdultPerformed at: [facility] [address] [id number] Director: Yousuf Bernardo PhD, Phone: [phone] C4 37 (Abnormal) Range: 9-36 0 [...] DIFF Comments: PATIENT WAS FASTINGPERFORMED BY: [facility]Aicrvw5910 [facility] [id number] Information: [id number] (99125) Immature Grans (Abs) 0.0 {x10E3/uL} (Normal) Range: [...] 3.77-5.28 WBC 4.5 {x10E3/uL} (Normal) Range: 3.4-10.8 77-Ife-23075:21 METABOLIC PANEL, COMPREHENSIVE Comments: PATIENT WAS FASTINGPERFORMED BY: [facility]6370 [facility] [id number] (58702) ALT (SGPT) 16 [iU]/L (Normal) Range: 0-32 [...] Glucose, Serum 132 mg/dL (Abnormal) Range: 65-99 43-Jzq-435610:53 CREATININE CLEARANCE Comments: PATIENT NOT FASTINGPERFORMED BY: [facility]Ydvldd8658 [facility] [id number] Information: [id number] START 10/30/13@8AM F INISH 10/31/13@8AM 2650ML (45170) Creatinine Clearance 44 mL/min (Abnormal) Range: 88-128 Comments: The above range is based on 1.73 square meter average body surfacearea. Creatinine, Ur 24hr 877.2 {mg/24_hr} (Normal) Range: 800.0-1800.0 Creatinine, Urine 33.1 mg/dL (Normal) Range: 15.0-278.0 eGFR If Africn Am 44 mL/min/1.73 (Abnormal) eGFR If NonAfricn Am 38 mL/min/1.73 (Abnormal) Creatinine, Serum 1.37 mg/dL (Abnormal) Range: 0.57-1.00 02-Fno-871769:53 Total Protein,24 Hour Urine Comments: PATIENT NOT FASTINGPERFORMED BY: [employer]Art [facility] [id number] (09641) Prot,24hr calculated 3458.3 {mg/24_hr} (Abnormal) Range: 30.0-150.0 Protein,Total,Urine 130.5 mg/dL (Abnormal) Range: 0.0-15.0 02-Hse-782230:31 HgA1C , Office (20614) HgA1C , Office 6.4 % (Normal) Range: 4.6 - 7.1 25-Pct-882765:27 Microscopic Examination Comments: PATIENT WAS FASTINGPERFORMED BY: [employer]Art [facility] [id number] Bacteria Few (Normal) Mucus Threads Present (Normal) Epithelial Cells (non renal) 0-10 {/hpf} (Normal) Range: 0 - 10 RBC 3-10 {/hpf} (Abnormal) Range: 0 - 2 WBC 6-10 {/hpf} (Abnormal) Range: 0 - 5 :32 LIPID PANEL (52226) Comments: PATIENT WAS FASTINGPERFORMED BY: [employer] [facility] [id number] LDL/HDL Ratio 1.0 {ratio_units} (Normal) Range: 0.0-3.2 [...] CREATININE RATIO Comments: PATIENT WAS FASTINGPERFORMED BY: [employer] [facility] [id number] (68406) AND (94757) Microalb/Creat Ratio 1998.9 {mg/g_creat} (Abnormal) Range: 0.0-30.0 Creatinine, Urine 73.4 mg/dL (Normal) Range: 15.0-278.0 Microalbumin, Urine 1467.2 ug/mL (Abnormal) Range: 0.0-17.0 :32 URINALYSIS, W/ MICRO (42373) Comments: PATIENT WAS FASTINGPERFORMED BY: Avocado EntertainmentV[facility])Eycxqp8304 [facility] [id number] Microscopic Examination See below: (Normal) Comments: Microscopic was indicated and was performed. Nitrite, Urine Negative (Normal) Urobilinogen,Semi-Qn 0.2 mg/dL (Normal) Range: 0.0-1.9 Bilirubin Negative (Normal) Occult Blood Trace (Abnormal) Ketones Negative (Normal) Glucose Negative (Normal) Protein 3+ (Abnormal) WBC Esterase Trace (Abnormal) Appearance Clear (Normal) Urine-Color Yellow (Normal) pH 6.5 (Normal) Range: 5.0-7.5 Specific Spencer 1.015 (Normal) Range: 1.005-1.030 :32 CBC WITH MANUAL DIFF Comments: PATIENT WAS FASTINGPERFORMED BY: ACACIA SemiconductorM[facility] Hospital6370 [facility] [id number] Information: [id number] (36169) Immature Grans (Abs) 0.0 {x10E3/uL} (Normal) Range: [...] COMPREHENSIVE Comments: PATIENT WAS FASTINGPERFORMED BY: [facility]Ushiey3813 [facility] [id number] (68389) ALT (SGPT) 16 [iU]/L (Normal) Range: 0-32 [...] B-12 (CYANOCOBALAMIN) Comments: PATIENT WAS FASTINGPERFORMED BY: [facility]ocado EntertainmentV[facility])Ghkkzr9569 [facility] [id number] (92652) Vitamin B12 >1999 pg/mL (Abnormal) Range: 211-946 28-Kci-425161:01 HgA1C , Office (32119) HgA1C , Office 6.4 % (Normal) Range: 4.6 - 7.1 :37 METABOLIC PANEL, COMPREHENSIVE Comments: PATIENT WAS FASTINGPERFORMED BY: [employer] Hwuwtz3963 [facility] [id number] (72396) ALT (SGPT) 12 [iU]/L (Normal) Range: 0-32 [...] (Abnormal) Range: 65-99 :37 Vitamin D Hydroxy (38742) Comments: PATIENT WAS FASTINGPERFORMED BY: [employer]70 [facility] [id number] Vitamin D, 25-Hydroxy 47.4 ng/mL (Normal) Range: 30.0-100.0 Comments: Vitamin D deficiency has been defined by the [place] of[place]icine and an Endocrine Society practice guideline as alevel of serum 25-OH vitamin D less than 20 ng/mL (1,2).The Endocrine Society went on to further define vitamin Dinsufficiency as a level between 21 and 29 ng/mL (2).1. IOM ([place] of Medicine). 2010. Dietary reference intakes for calcium and D. [place]: The National Academies Press.2. Mira MF, Rosette [place], Tommy SWAIN, et al. Evaluation, treatment, and prevention of vitamin D deficiency: an Endocrine Society clinical practice guideline. JCEM. 2010; 96(7):1911-30. :37 LIPID PANEL (92874) Comments: PATIENT WAS FASTINGPERFORMED BY: [employer] LabTalkPlusVirtua [facility])Bfcosu8452 [facility] [id number] LDL/HDL Ratio 1.2 {ratio_units} (Normal) Range: 0.0-3.2 [...] MANUAL DIFF Comments: PATIENT WAS FASTINGPERFORMED BY: [facility]ocado EntertainmentV[facility] ([facility])Qojepw3068 [facility] [id number] Information: [id number] (73627) Immature Grans (Abs) 0.0 {x10E3/uL} (Normal) Range: [...] Qn, 24-Hr Comments: PATIENT NOT FASTINGPERFORMED BY: [facility] EntertainmentV[facility])Ualkro2705 [facility] [id number] Information: ADD [id number] AND DRAW FEE 99 6660 VOLUME 2600 164LBS 5' '3 Urine Prot,24hr calculated 920.4 {mg/24_hr} Range: 30.0-150.0 (Abnormal) Protein,Total,Urine 35.4 mg/dL Range: 0.0-15.0 (Abnormal) : Written Authorization WAR (Normal) Comments: PATIENT NOT FASTINGPERFORMED BY: [employer] Xrtxif1486 [facility] [id number] Comments: Written Authorization Received.Authorization received from Chiqui BRICEÑO LPN [id number] by Marleen Sharma :52 Metabolic Panel, Basic Comments: PATIENT NOT FASTINGPERFORMED BY: [employer] Vjhpnj2796 [facility] [id number] Information: ADD [id number] AND DRAW FEE 99 6660 VOLUME 2600 164LBS 5' '3 (16947) Calcium, Serum 9.7 mg/dL (Normal) Range: 8.6-10.2 [...] mg/dL (Abnormal) Range: 65-99 :52 CREATININE CLEARANCE (83235) Comments: PATIENT NOT FASTINGPERFORMED BY: [employer] Tsgitt4103 [facility] [id number] Creatinine Clearance 46 mL/min (Abnormal) Range: 88-128 Comments: The above range is based on 1.73 square meter average body surfacearea. Creatinine, Ur 24hr 899.6 {mg/24_hr} (Normal) Range: 800.0-1800.0 Creatinine, Urine 34.6 mg/dL (Normal) Range: 15.0-278.0 :52 24 hour urine for Protein Comments: PATIENT NOT FASTINGPERFORMED BY: Avocado EntertainmentWinslow Indian Health Care CenterLyiqzn4657 [facility] [id number] (80667) Microalb/Creat Ratio 695.4 {mg/g_creat} (Abnormal) Range: 0.0-30.0 Microalbumin, Urine 240.6 ug/mL (Abnormal) Range: 0.0-17.0 :13 HgA1C , Office (42430) HgA1C , Office 6.3 % (Normal) Range: 4.6 - 7.1 4-Els-889251:01 Blood Glucose , Office (96691) Blood Glucose , Office 162 (Normal) 29-Fbm-075537:02 Microscopic Examination Comments: PATIENT NOT FASTINGPERFORMED BY: [employer] Kfswfj0364 [facility] [id number] Bacteria Few (Normal) Mucus Threads Present (Normal) [...] Hebert M.D.October 19, 2012 at 2:42:14 PM [id number] Signed GP/GP If you are the referring physician and would like to consult [facility] theradiologist who provided this interpretation, please contact Yasmany Pond at [phone]. If this radiologist is unavailable, youwill be directed to another radiologist to assist. If y ou are a patient with a question regarding this report, pleasecontactyour referring physician directly. Professional Interpretation Provided By: Skinny Mom, Phone , These documents contain legally protected [...] 10/19/12 1444 Sign by: Misael Hebert MD 62-Ywf-517255:59 TSH (60578) Comments: PATIENT WAS FASTINGPERFORMED BY: [employer]70 [facility] [id number] TSH 1.230 {uIU/mL} (Normal) Range: 0.450-4.500 :59 LIPID PANEL (13725) Comments: PATIENT WAS FASTINGPERFORMED BY: [employer]6370 [facility]estAt[facility] [id number] LDL/HDL Ratio 0.5 {ratio_units} (Normal) Range: 0.0-3.2 LDL Cholesterol Calc 47 mg/dL (Normal) Range: 0-99 Cholesterol, Total 149 mg/dL (Normal) Range: 100-199 HDL Cholesterol 91 mg/dL (Normal) Comments: According to ATP-III Guidelines, HDL-C >59 mg/dL is considered anegative risk factor for CHD. Triglycerides 57 mg/dL (Normal) Range: 0-149 VLDL Cholesterol Cesar 11 mg/dL (Normal) Range: 5-40 02-Dkw-069113:02 URINALYSIS, W/ MICRO Comments: PATIENT NOT FASTINGPERFORMED BY: [employer]70 [facility] [id number] Information: [id number] (53007) Microscopic Examination See below: (Normal) Nitrite, Urine Negative (Normal) Bilirubin Negative (Normal) Urobilinogen,Semi-Qn 0.2 mg/dL (Normal) Range: 0.0-1.9 Occult Blood Negative (Normal) Ketones Negative (Normal) Glucose Negative (Normal) Protein 3+ (Abnormal) WBC Esterase Negative (Normal) Appearance Clear (Normal) Urine-Color Yellow (Normal) pH 5.5 (Normal) Range: 5.0-7.5 Specific Spencer 1.015 (Normal) Range: 1.005-1.030 14-Tbx-828842:59 CBC WITH MANUAL DIFF Comments: PATIENT WAS FASTINGPERFORMED BY: [facility]CoV[facility])Uipvrl3404 [facility] [id number] Information: [id number] (39694) Immature Grans (Abs) 0.0 {x10E3/uL} (Normal) Range: [...] 3.77-5.28 WBC 4.8 {x10E3/uL} (Normal) Range: 3.4-10.8 07-Cjw-102836:59 METABOLIC PANEL, COMPREHENSIVE Comments: PATIENT WAS FASTINGPERFORMED BY: [facility]CoV[facility])Ruconl2808 [facility] [id number] (05029) ALT (SGPT) 14 [iU]/L (Normal) Range: 0-32 [...] Glucose, Serum 104 mg/dL (Abnormal) Range: 65-99 2-Wwy-353295:37 HgA1C , Office (90538) HgA1C , Office 6.0 % (Normal) Range: 4.6 - 7.1 4-Hni-326457:31 CRE CREAT 1.3 mg/dL (Abnormal) Range: 0.6-1.0 [...] Galan M.D.August 09, 2012 at 2:38:03 PM [id number] Signed PV/PV If you are the referring physician and would like to consult with theradiologist who provided this interpretation, please contact Donna Burnett M.D. at [phone]. If this radiologist is unavailable, youwillbe directed to another radiologist to assist. If you are a patient with a question regarding this report, pleasecontactyour referring physician evelyne cowan. Professional Interpretation Provided By: Skinny Mom, Phone , These documents contain legally protected [...] 08/09/12 1441 Sign by: Donna Martin MD 74-Jqw-490930:31 CBC with manual diff Comments: PATIENT NOT FASTINGPERFORMED BY: [facility]Co Cfaszi4502 [facility] [id number] Information: [id number] (14358) Immature Grans (Abs) 0.0 {x10E3/uL} (Normal) Range: [...] 3.77-5.28 WBC 3.2 {x10E3/uL} (Abnormal) Range: 4.0-10.5 09-Ozs-785105:31 Metabolic Panel, Comprehensive Comments: PATIENT NOT FASTINGPERFORMED BY: [facility]CoV[facility])Zwlxua5189 [facility] [id number] (82979) ALT (SGPT) 19 [iU]/L (Normal) Range: 0-32 [...] mg/dL (Abnormal) Range: 65-99 :31 LIPID PANEL (13596) Comments: PATIENT WAS FASTINGPERFORMED BY: [facility]FocusAt[facility] [id number] LDL/HDL Ratio 0.8 {ratio_units} (Normal) Range: 0.0-3.2 [...] MANUAL DIFF Comments: PATIENT WAS FASTINGPERFORMED BY: [employer]70 [facility]est[facility] [id number] Information: [id number] (82382) Immature Grans (Abs) 0.0 {x10E3/uL} (Normal) Range: [...] PANEL, COMPREHENSIVE Comments: PATIENT WAS FASTINGPERFORMED BY: [facility]6370 [facility] [id number] (94779) ALT (SGPT) 22 [iU]/L (Normal) Range: 0-32 [...] (Abnormal) Range: 65-99 :45 HgA1C , Office (25861) HgA1C , Office 6.1 % (Normal) Range: [...] Galan M.D.February 02, 2012 at 5:10:18 PM [id number] Signed PV/PV If you are the referring physician and w ould like to consult with theradiologist who provided this interpretation, please contact Donna Burnett M.D. at [phone]. If this radiologist is unavailable, youwillbe directed to another radiol ogist to assist. If you are a patient with a question regarding this report, pleasecontactyour referring physician directly. Professional Interpretation Provided By: Skinny Mom, Phone ,Fa x [phone] These documents contain legally protected and confidential [...] 02/02/121713 S ign by: Donna Martin MD 59-Bjx-928778:16 DEXA BONE DENSITY STUDY (HP) Radiology Report [...] Coronel M.D.January 20, 2012 at 2:43:46 PM [id number] Signed KERA/KERA If you ar e the [...] 01/20/12 1447 Sign by: David Coronel MD 84-Tus-001680:15 BILAT SCRN DIGITAL & CAD Radiology Report [...] Coronel M.D.January 20, 2012 at 1:20:11 PM [id number] Signed KERA/KERA If you are the referring physician and would like to consult with theradiologist who provided this interpretation, please contact Yasmany Parnell at . If this radiologist is unavailable,youwill be directed to another radiologist to assist. If you are a patient with a question regarding this report, pleasecontactyour referring physician directly. Professional Interpretation Provided By: Skinny Mom, Phone , These documents contain legally protected [...] 01/20/12 1324 Sign by: David Coronel MD 2-Ree-195608:56 PELVIC (NON ) Radiology Report See Note [...] Vuong M.D.January 10, 2012 at 8:39:09 PM [id number] Signed JOHNNY/JOHNNY If you are the referring physician and would like to consult with theradiologist who provided this inte rpretation, please contact Radha Vuong M.D. at [phone]. If this radiologist is unavailable, you will bedirected to another radiologist to assist. If you are a patient with a question regarding this r eport, pleasecontactyour referring physician directly. Professional Interpretation Provided By: Skinny Mom, Phone , PROCEDURE: ULTRASOUND OF THE FEMALE [...] Vuong M.D.January 10, 2012 at 8:40:07 PM [id number] Signed JOHNNY/JOHNNY If you are the referring physician and would like to consult with theradiologist who provided this interpretation, please contact Radha Vuong M.D. at [phone]. If this radiologist is unavailable, you will bedirected to another radiologist to assist. If you are a patient with a question regarding this report, pleasecontactyour referring ysician directly. Professional Interpretation Provided By: Tinker SquareabbeyROBAUTO, Phone , These documents contain legally protected [...] Dictated on 01/10/12 1309 by TATIANA VUONG MDDeaconess Hospital [facility] County ribed on 01/11/12 1113 by ITS IMPORTSign by RADHA VUONG MD on 01/11/12 1114 Sign by: ARDHA VUONG MD :35 MICROALBUMIN: CREATININE RATIO Comments: PATIENT WAS FASTINGPERFORMED BY: [employer]70 [facility] [id number] (41044) AND (05490) Microalb/Creat Ratio 829.4 {mg/g_creat} (Abnormal) Range: 0.0-30.0 Microalbumin, Urine 437.1 ug/mL (Abnormal) Range: 0.0-17.0 Creatinine, Urine 52.7 mg/dL (Normal) Range: 15.0-278.0 :35 CBC WITH MANUAL DIFF Comments: PATIENT WAS FASTINGPERFORMED BY: [employer]6370 [facility] [id number] Information: [id number] (75687) Immature Grans (Abs) 0.0 {x10E3/uL} (Normal) Range: [...] 3.77-5.28 WBC 3.7 {x10E3/uL} (Abnormal) Range: 4.0-10.5 69-Lir-04400:35 METABOLIC PANEL, COMPREHENSIVE Comments: PATIENT WAS FASTINGPERFORMED BY: LabCoVirtua [facility])Ldbwii6782 [facility] [id number] (41076) ALT (SGPT) 15 [iU]/L (Normal) Range: 0-32 [...] mg/dL (Abnormal) Range: 65-99 :35 LIPID PANEL (90181) Comments: PATIENT WAS FASTINGPERFORMED BY: [employer]70 [facility] [id number] LDL/HDL Ratio 0.9 {ratio_units} (Normal) Range: 0.0-3.2 LDL Cholesterol Calc 72 mg/dL (Normal) Range: 0-99 HDL Cholesterol 83 mg/dL (Normal) Comments: According to ATP-III Guidelines, HDL-C >59 mg/dL is considered anegative risk factor for CHD. VLDL Cholesterol Cesar 18 mg/dL (Normal) Range: 5-40 Triglycerides 90 mg/dL (Normal) Range: 0-149 Cholesterol, Total 173 mg/dL (Normal) Range: 100-199 :15 HgA1C , Office (57276) HgA1C , Office 6.2 % (Normal) Range: 4.6 - 7.1 :30 CBC WITH MANUAL DIFF Comments: PATIENT WAS FASTINGPERFORMED BY: [facility] Ihjntb1873 [facility] [id number] Information: [id number] (02534) Immature Grans (Abs) 0.0 {x10E3/uL} (Normal) Range: [...] 3.77-5.28 WBC 4.2 {x10E3/uL} (Normal) Range: 4.0-10.5 87-Hyj-73703:30 METABOLIC PANEL, COMPREHENSIVE Comments: PATIENT WAS FASTINGPERFORMED BY: [facility]Fyhlcd0381 [facility] [id number] (44861) ALT (SGPT) 19 [iU]/L (Normal) Range: 0-40 [...] mg/dL (Abnormal) Range: 65-99 :30 LIPID PANEL (66389) Comments: PATIENT WAS FASTINGPERFORMED BY: [facility]Tctsdr8983 [facility] [id number] LDL/HDL Ratio 0.9 {ratio_units} (Normal) Range: 0.0-3.2 [...] note reference interval change :48 Rapid Flu (46558 x 2) Influenza A Ag negative (Normal) [...] redmond M.D.November 05, 2011 at 3:25:08 PM [id number] Signed GP/GP If you are the referring physician and would like to consult with theradiologist who provided this interpretation, please contact Yasmany Pond at [phone]. If this radiologist is unavailable, youwill be directed to another radiologist to assist. If you are a patient with a question regarding this report, ple asecontactyour referring physician directly. Professional Interpretation Provided By: Skinny Mom, Phone , These documents contain legally protected [...] redmond M.D.November 05, 2011 at 3:25:08 PM [id number] Signed GP/GP If you are the referring physician and would like to consult with theradiologist who provided this interpretation, please contact Yasmany Pond at [phone]. If this radiologist is unavailable, youwill be directed to another radiologist to assist. If you are a patient with a question regarding this report, ple asecontactyour referring physician directly. Professional Interpretation Provided By: Skinny Mom, Phone , These documents contain legally protected [...] on 11/05/111551 Sign by: Misael Hebert MD 51-Qaf-835240:20 METABOLIC PANEL, Comments: PATIENT WAS FASTINGPERFORMED BY: [facility]6370 [facility] [id number] Information: [id number],2ND ORDER NO DRAW F EE COMPREHENSIVE (01911) ALT (SGPT) 31 [iU]/L (Normal) Range: 0-40 [...] Creatinine Clearance Comments: PATIENT WAS FASTINGPERFORMED BY: ACAC[facility] SemiconductorMclaren [facility] Hospital6370 [facility] [id number] Information: 10/30@6AM 10/31@730AM Creatinine Clearance 58 mL/min [...] Qn, 24-Hr Comments: PATIENT WAS FASTINGPERFORMED BY: Avocado EntertainmentVirtua Mt. Holly ([facility])Ipnksc8511 [facility] [id number] Urine Prot,24hr calculated 1023.8 {mg/24_hr} (Abnormal) Range: 30.0-150.0 Protein,Total,Urine 52.5 mg/dL (Abnormal) Range: 0.0-15.0 :04 HgA1C , Office (85947) HgA1C , Office 6.1 % (Normal) Range: [...] regarding this repor t, please call our [id number] line @ Dictated on 07/27/11 1040 by GAYE PEREZ MDscribed on 07/28/111224 by ITS IMPORTSign by GAYE PEREZ MD on 07/28/115 Sign by: GAYE PEREZ MD :54 Vitamin D Hydroxy (06927) Comments: PATIENT WAS FASTINGPERFORMED BY: Positionly [facility] Content6370 [facility] [id number] Vitamin D, 25-Hydroxy 48.8 ng/mL (Normal) Range: 30.0-100.0 Comments: Vitamin D deficiency has been defined by the [place] ofMedicine and an Endocrine Society practice guideline as alevel of serum 25-OH vitamin D less than 20 ng/mL (1,2).The Endocrine Society went on to further define vitamin Dinsufficiency as a level between 21 and 29 ng/mL (2).1. IOM ([place] of Medicine). 2010. Dietary reference intakes for calcium and D. [place]: The National Academies Press.2. Mira MF, Rosette LOPEZ, Tommy SWAIN, et al. Evaluation, treatment, and prevention of vitamin D deficiency: an Endocrine Society clinical practice guideline. JCEM. 2010; 96(7):1911-30. :54 LIPID PANEL (10910) Comments: PATIENT WAS FASTINGPERFORMED BY: Aionex6370 [facility] HospitalVerified Identity PassAtrium Health [facility] [id number] LDL/HDL Ratio 1.0 {ratio_units} (Normal) Range: 0.0-3.2 [...] MANUAL DIFF Comments: PATIENT WAS FASTINGPERFORMED BY: [facility] Wqjwte7368 [facility] [id number] Information: ADD [id number] AND DRAW FEE [id number] [phone] (72494) Immature Grans (Abs) 0.0 {x10E3/uL} (Normal) Range: [...] COMPREHENSIVE Comments: PATIENT WAS FASTINGPERFORMED BY: [facility]Ixamng6353 [facility] [id number] (01621) ALT (SGPT) 48 [iU]/L (Abnormal) Range: 0-40 [...] (Abnormal) Range: 65-99 :18 HgA1C , Office (67717) HgA1C , Office 6.1 % (Normal) Range: 4.6 - 7.1 :18 Blood Glucose , Office (46243) Blood Glucose , Office 103 (Normal) 24-Wxm-36338:00 ABDOMEN WITH AND W/O CONTRAST Radiology Report [...] radiologist regarding this report, please call our [id number] line @ Dictated on 03/18/11 1715 by Jennie Pugh MDieTranscribed on 03/22/11 1401 by ITS IMPORTSign by Jeanette Hill MD on 03/22/11 1402 Sign by: Jeanette Pugh MD 90-Mmx-839014:29 SERUM CRE & GFR CREAT,SERUM 1.1 mg/dL (Abnormal) Range: 0.6-1.0 54-Bft-39301:00 BRAIN W/WO CONTRAST Radiology Report See Note [...] 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 The [...] on 03/02/111729 Sign by: Donna Martin MD 61-Zfa-21114:00 UPPER EXT. JOINT ONLY(ROUTINE) Radiology Report See [...] on 03/04/11 1035 Sign by: Ankur Duncan 68-Lro-089947:08 SHOULDER,MIN 2 VIEWS Radiology Report See Note [...] 02/01/11 1021 Sign by: ALEJANDRO DRUMMOND DO 25-Mcg-188306:57 SINUS/FACIAL BONE Radiology Report See Note (Normal) [...] 01/19/11 1448 Sign by: Misael Hebert MD 38-Rob-49815:00 BRAIN W/WO CONTRAST Radiology Report See Note [...] addition, there is a small region of tofvzyykkL2wbbqpwvryr along the anterior margin of the mass, [...] on 01/19/111650 Sign by: GAYE PEREZ MD 85-Lpd-38781:00 BRAIN/HEAD W/WO CONTRAST Radiology Report See Note [...] 01/19/11 1447 Sign by: Misael Hebert MD 39-Qwo-893787:08 BILAT SCRN DIGITAL & CAD Radiology Report [...] CREATININE RATIO Comments: PATIENT NOT FASTINGPERFORMED BY: [facility]CoV[facility])Ljqqdx0901 [facility] [id number] (25839) AND (56891) Microalb/Creat Ratio 1028.4 {mg/g_creat} (Abnormal) Range: 0.0-30.0 Microalbumin, Urine 1341.0 ug/mL (Abnormal) Range: 0.0-17.0 Creatinine, Urine 130.4 mg/dL (Normal) Range: 15.0-278.0 :20 CBC WITH MANUAL DIFF (08360) Comments: PATIENT NOT FASTINGPERFORMED BY: EVE LabCoV[facility])Ckbvll5335 [facility] [id number] Immature Grans (Abs) 0.0 {x10E3/uL} (Normal) Range: [...] {x10E3/uL} (Normal) Range: 4.0-10.5 :20 LIPID PANEL (31991) Comments: PATIENT NOT FASTINGPERFORMED BY: [facility]ex6370 [facility] [id number] LDL/HDL Ratio 0.9 {ratio_units} (Normal) Range: 0.0-3.2 [...] PANEL, COMPREHENSIVE Comments: PATIENT NOT FASTINGPERFORMED BY: [employer]70 [employer] [facility] [id number] (02512) ALT (SGPT) 28 [iU]/L (Normal) Range: 0-40 [...] (Abnormal) Range: 65-99 :39 HgA1C , Office (60408) HgA1C , Office 6.5 % (Normal) Range: 4.6 - 7.1 :39 Blood Glucose , Office (85729) Blood Glucose , Office 128 (Normal) :19 CBC With Differential/Platelet Comments: PATIENT WAS FASTINGPERFORMED BY: [facility] Rqxatq8953 [facility] [id number] Immature Grans (Abs) 0.0 {x10E3/uL} (Normal) Range: [...] 3.80-5.10 WBC 5.6 {x10E3/uL} (Normal) Range: 4.0-10.5 7-Cwy-912064:19 Comp. Metabolic Panel (14) Comments: PATIENT WAS FASTINGPERFORMED BY: [facility]CoV[facility])Mozvyo4861 [facility] [id number]; appt 01/11/11 ALT (SGPT) 18 [iU]/L (Normal) [...] Glucose, Serum 113 mg/dL (Abnormal) Range: 65-99 4-Rwo-024490:19 Lipid Panel With LDL/HDL Comments: PATIENT WAS FASTINGPERFORMED BY: Aionex6370 [facility] [id number] Ratio LDL/HDL Ratio 1.0 {ratio_units} Range: 0.0-3.2 [...] 0.800 {uIU/mL} Comments: PATIENT WAS FASTINGPERFORMED BY: [employer]bar Cudxsa4820 [facility] [id number] 2:19 (Normal) Range: 0.450-4.500 Vitamin D, 25-Hydroxy 44.0 ng/mL (Normal) Comments: PATIENT WAS FASTINGPERFORMED BY: [employer] Cibvky9136 [facility] [id number] 2:19 Range: 32.0-100.0 Comments: Effective February 22, 2011 Vitamin D, 25-Hydroxy reference intervals will be changing to 30-100. .Recent studies consider the lower li sandra of 32.0 ng/mL to be athreshold for optimal health.Otf HAYES. J Nutr. 2004;135(2):317-22. :54 HgA1C , Office (43517) HgA1C , Office 6.6 % (Normal) Range: 4.6 - 7.1 :54 Blood Glucose , Office (53016) Blood Glucose , Office 134 (Normal) :40 Creatinine Clearance Comments: PERFORMED BY: [employer] Pmrpys2185 [facility] [id number] Information: 10/07@7AM 10/08@3AM Creatinine Clearance 56 mL/min [...] Creatinine, Serum 1.21 mg/dL (Abnormal) Range: 0.57-1.00 4-Jgm-951472:40 Protein Total, Qn, 24-Hr Comments: PERFORMED BY: [employer] Nwhoqo3665 [facility] [id number] Urine Prot,24hr calculated 610.5 {mg/24_hr} (Abnormal) Range: 30.0-150.0 Protein,Total,Urine 40.7 mg/dL (Abnormal) Range: 0.0-15.0 :46 Vitamin D Hydroxy (93033) Comments: PATIENT WAS FASTINGPERFORMED BY: [employer] Trchrb2366 [facility] [id number] Vitamin D, 25-Hydroxy 36.5 ng/mL (Normal) Range: 32.0-100.0 Comments: Recent studies consider the lower limit of 32.0 ng/mL to be athreshold for optimal health.Otf HAYES. J Nutr. 2004;135(2):317-22. :46 METABOLIC PANEL, COMPREHENSIVE Comments: PATIENT WAS FASTINGPERFORMED BY: [employer] Ndqhrg7989 [facility] [id number] (14484) ALT (SGPT) 34 [iU]/L (Normal) Range: 0-40 [...] Glucose, Serum 116 mg/dL (Abnormal) Range: 65-99 8-Nuz-173652:46 LIPID PANEL (11548) Comments: PATIENT WAS FASTINGPERFORMED BY: [facility]Wmtkls0556 [facility] [id number] LDL Cholesterol Calc 85 mg/dL (Normal) Range: 0-99 LDL/HDL Ratio 1.2 {ratio_units} (Normal) Range: 0.0-3.2 VLDL Cholesterol Cesar 28 mg/dL (Normal) Range: 5-40 HDL Cholesterol 69 mg/dL (Normal) Comments: According to ATP-III Guidelines, HDL-C >59 mg/dL is considered anegative risk factor for CHD. Cholesterol, Total 182 mg/dL (Normal) Range: 100-199 Triglycerides 141 mg/dL (Normal) Range: 0-149 2-Gsi-678030:46 CBC WITH MANUAL DIFF Comments: PATIENT WAS FASTINGPERFORMED BY: [facility] Exulas2080 [facility] [id number] Information: [id number]; appt 10/12/10 (44019) Immature Grans (Abs) 0.0 {x10E3/uL} (Normal) Range: [...] (Normal) Range: 4.0-10.5 :07 HgA1C , Office (59036) HgA1C , Office 6.6 % (Normal) Range: 4.6 - 7.1 :07 Blood Glucose , Office (68876) Blood Glucose , Office 114 (Normal) 90-Abi-241502:00 Creatinine Clearance Comments: PERFORMED BY: [facility]FocusAt[facility] [id number] Information: 12/31@8AM 01/01@4AM Creatinine Clearance 48 mL/min [...] Creatinine, Serum 1.20 mg/dL (Abnormal) Range: 0.57-1.00 86-Tta-748857:00 Protein Total, Qn, 24-Hr Comments: PERFORMED BY: [facility]ionex6370 [facility] HospitalVerified Identity PassAtrium [facility] [id number] Urine Prot,24hr calculated 1070.6 {mg/24_hr} (Abnormal) Range: 30.0-150.0 Protein,Total,Urine 79.3 mg/dL (Abnormal) Range: 0.0-15.0 65-Kcl-218546:48 BILAT SCRN DIGITAL & CAD Radiology Report See Note (Normal) Comments: Exam Number: [id number] MAMMOGRAPHY - BILATERAL SCREENING INDICATION:Routine annual screening [...] of attaching a ResultCode to this exam.ADDENDUM: [id number] HPBI/MDS Reported By: MISAEL HEBERT 31-Okt-568400:48 DEXA BONE DENSITY STUDY (HP) Radiology Report See Note (Normal) Comments: Exam Number: [id number] CLINICAL:This is a 69-year-old female patient with postmenopausal screening. EXAMINATION:DUAL ENERGY X-RAY ABSORPTIOMETRY / DEXA. TECHNIQUE:Bone Density Measurements (BMD) of lumb ar spine and bilateral hipswere obtained using a Efficient Power Conversion scanner.. COMPARISON:None. FINDINGS: Lumbar Spine (L1-L4): g/cm2 [...] Osteoporosis Foundation http://www.nof.org Reported By: MISAEL HEBERT 17-Xhd-048681:29 HgA1C , Office (63357) HgA1C , Office 6.5 % (Normal) Range: 4.6 - 7.1 43-Ksx-569716:29 Blood Glucose , Office (69922) Blood Glucose , Office 109 (Normal) 52-Sch-34411:05 CBC With Differential/Platelet Comments: PATIENT WAS FASTINGPERFORMED BY: LabCoV[facility])Qovjfm7518 [facility] [id number] Immature Grans (Abs) 0.0 {x10E3/uL} (Normal) Range: [...] 3.80-5.10 WBC 3.9 {x10E3/uL} (Abnormal) Range: 4.0-10.5 97-Bfs-46705:05 Comp. Metabolic Panel (14) Comments: PATIENT WAS FASTINGPERFORMED BY: [facility]CoV[facility]Imfwtk4820 [facility] [id number] ALT (SGPT) 20 [iU]/L (Normal) Range: 0-40 [...] With LDL/HDL Comments: PATIENT WAS FASTINGPERFORMED BY: Position[employer] [facility] Content6370 [facility] [id number] Ratio HDL Cholesterol 54 mg/dL (Normal) Comments: [...] ng/mL (Normal) Comments: PATIENT WAS FASTINGPERFORMED BY: [facility] Flqnft8844 [facility] [id number] :05 Range: 32.0-100.0 Comments: Recent studies consider the lower limit of 32.0 ng/mL to be athreshold for optimal health.Otf HAYES. J Nutr. 2004;135(2):317-22. :41 SPLEEN (HP) Radiology Report See Note (Normal) Comments: Exam Number: [id number] ULTRASOUND OF THE SPLEEN A goal directed [...] Protein, 0.5 mg/L (Normal) Comments: PERFORMED BY: [employer] Efpyog2161 [facility] [id number] 10:54 Quant Range: 0.0-4.9 17-Jun-2009 Hemoglobin A1c 6.3 % (Abnormal) Comments: PERFORMED BY: [employer] Uqabfu4117 [facility] [id number] 10:54 Range: 4.8-5.6 Comments: Increased risk for diabetes: 5.7 - 6.4Diabetes: >6.4Glycemic control for adults with diabetes: <7.0.Please note reference interval change 17-Jun-2009 Sedimentation 4 mm/h (Normal) Comments: PERFORMED BY: [employer] Btbdvc6937 [facility] [id number] 10:54 Rate-Westergren Range: 0-30 17-Jun-2009 Vitamin B12 1372 pg/mL Comments: PERFORMED BY: [employer] Dhdeff0838 [facility] [id number] 10:54 (Abnormal) Range: 211-911 Comments: Effective July 14, 2009, Vitamin B12 will bechanging to the [place] ECLIA methodology. Thereference interval will be changing to:211 - 946 pg/mL 17-Jun-2009 Vitamin D, 25-Hydroxy 37.7 ng/mL Comments: PERFORMED BY: [employer] Tnzalv3438 [facility] [id number] 10:54 (Normal) Range: 32.0-100.0 Comments: Recent studies consider the lower limit of 32.0 ng/mL to be athreshold for optimal health.Otf HAYES. J Nutr. 2004;135(2):317-22. 16-Cdz-608536:34 Vitamin D Hydroxy Comments: PATIENT NOT FASTINGPERFORMED BY: [facility] Tkxkwf8535 [facility] [id number] Information: [id number],2ND ORDER NO DRAW F EE (96456) Vitamin D, 25-Hydroxy 48.5 ng/mL (Normal) Range: 30.0-100.0 Comments: Vitamin D deficiency has been defined by the [place] ofMedicine and an Endocrine Society practice guideline as alevel of serum 25-OH vitamin D less than 20 ng/mL (1,2).The Endocrine Society went on to further define vitamin Dinsufficiency as a level between 21 and 29 ng/mL (2).1. IOM ([place] of Medicine). 2010. Dietary reference intakes for calcium and D. [place]: The National Academies Press.2. Mira MF, Rosette LOPEZ, Tommy SWAIN, et al. Evaluation, treatment, and prevention of vitamin D deficiency: an Endocrine Society clinical practice guideline. JCEM. 2010; 96(7):1911-30. :50 HgA1C , Office (84650) HgA1C , Office 6.7 % (Normal) Range: 4.6 - 7.1 :50 Blood Glucose , Office (94495) Blood Glucose , Office 117 (Normal) 98-Qgc-777579:12 CBC With Differential/Platelet Comments: PERFORMED BY: [facility]6370 [facility] [id number] Information: 06/10@6AM3/10@330AM Hematology Comments: Note: (Normal) Comments: [...] 3.80-5.10 WBC 3.6 {x10E3/uL} (Abnormal) Range: 4.0-10.5 19-Efz-355048:12 Comp. Metabolic Panel (14) Comments: PERFORMED BY: [facility]6370 [facility] [id number] Alkaline Phosphatase, S 68 [iU]/L (Normal) Range: [...] Glucose, Serum 124 mg/dL (Abnormal) Range: 65-99 44-Qio-020620:12 Creatinine Clearance Comments: PERFORMED BY: [facility]FocusAt[facility] [id number] Creatinine Clearance 49 mL/min (Abnormal) Range: 88-128 Comments: The above range is based on 1.73 square meter average body surfacearea. Creatinine, Ur 24hr 800.0 {mg/24_hr} (Normal) Range: 800.0-1800.0 Creatinine, Urine 40.0 mg/dL (Normal) Range: 15.0-278.0 79-Mre-764903:12 Lipid Panel With LDL/HDL Comments: PERFORMED BY: [facility]FocusAt[facility] [id number] Ratio HDL Cholesterol 61 mg/dL (Normal) Comments: According to ATP-III Guidelines, HDL-C >59 mg/dL is considered anegative risk factor for CHD. LDL Cholesterol Calc 74 mg/dL (Normal) Range: 0-99 LDL/HDL Ratio 1.2 {ratio_units} (Normal) Range: 0.0-3.2 VLDL Cholesterol Cesar 17 mg/dL (Normal) Range: 5-40 Cholesterol, Total 152 mg/dL (Normal) Range: 100-199 Triglycerides 87 mg/dL (Normal) Range: 0-149 98-Kuu-326023:12 Protein Total, Qn, 24-Hr Comments: PERFORMED BY: [facility]FocusAt[facility] [id number] Urine Prot,24hr calculated 1172.0 {mg/24_hr} Range: 30.0-150.0 (Abnormal) Protein,Total,Urine 58.6 mg/dL (Abnormal) Range: 0.0-15.0 TSH 1.280 {uIU/mL} Comments: PERFORMED BY: Avocado EntertainmentVirtua [facility] ([facility])Tsunsg5056 [facility] [id number] 1:12 (Normal) Range: 0.450-4.500 :58 HgA1C , Office (85570) HgA1C , Office 6.0 % (Normal) Range: 4.6 - 7.1 :58 Blood Glucose , Office (66387) Blood Glucose , Office 113 (Normal) :03 CBC With Differential/Platelet Comments: PATIENT WAS FASTINGPERFORMED BY: Avocado EntertainmentVirt[facility])Wmdsbx7681 [facility] [id number] Baso (Absolute) 0.0 {x10E3/uL} (Normal) Range: 0.0-0.2 [...] (14) Comments: PATIENT WAS FASTINGPERFORMED BY: LabCoV[facility])Sndddw0641 [facility] [id number] A/G Ratio 2.0 (Normal) Range: 1.1-2.5 Albumin, [...] Glucose, Serum 116 mg/dL (Abnormal) Range: 65-99 2-Kmi-660043:03 Lipid Panel With LDL/HDL Comments: PATIENT WAS FASTINGPERFORMED BY: [employer]70 BactestAt[facility] [id number] Ratio Cholesterol, Total 167 mg/dL (Normal) Range: [...] ng/mL (Normal) Comments: PATIENT WAS FASTINGPERFORMED BY: Aionex6370 [facility]actestAt[facility] [id number] :03 Range: 32.0-100.0 Comments: Recent studies consider the lower limit of 32.0 ng/mL to be athreshold for optimal health.Otf HAYES. J Nutr. 2004;135(2):317-22. 47-Kod-672154:32 Urinalysis, Office (40838) UA - BILIRUBIN Negative (Normal) UA - BLOOD Hemolyzed Trace (Normal) UA - GLUCOSE Negative (Normal) UA - KETONES Negative mg/dL (Normal) UA - LEUKOCYTE ESTERASE Negative (Normal) UA - NITRITE Negative (Normal) UA - PH 6.5 (Normal) UA - PROTEIN 300 mg/dL (Normal) UA - SPECIFIC GRAVITY 1.020 (Normal) URINE UROBILINGN JATINDER TIMED 2 mg/dL (Normal) 2-Vdh-050169:19 URINE SETH CULTURE-JATINDER COL Comments: PATIENT NOT FASTINGClinical Information: SRC:UR ADD [id number] PERFORMED BY: everyArt [facility] [id number] COUNT (07590) Result 1 ECV (Normal) Comments: Escherichia coli, [...] report (Normal) Culture,Comprehensiv e 09-Jan-20098:17 Urinalysis, Office (00593) UA - BILIRUBIN Negative (Normal) UA - BLOOD Hemolyzed Large (Normal) UA - GLUCOSE Negative (Normal) UA - KETONES Negative mg/dL (Normal) UA - LEUKOCYTE ESTERASE Moderate (Normal) UA - NITRITE Negative (Normal) UA - PH 7.0 (Normal) UA - PROTEIN 300 mg/dL (Normal) UA - SPECIFIC GRAVITY 1.020 (Normal) URINE UROBILINGN JATINDER TIMED 2 mg/dL (Normal) 2-Zah-572517:05 Comp. Metabolic Panel (14) Comments: PATIENT WAS FASTINGPERFORMED BY: LabCoVirtua [facility])Xgjzim7866 [facility] [id number] A/G Ratio 1.7 (Normal) Range: 1.1-2.5 Albumin, [...] Panel (7) Comments: PATIENT WAS FASTINGPERFORMED BY: Localyticsox People PowerAtrium Health [id number] Bilirubin, Direct 0.12 mg/dL (Normal) Range: 0.00-0.40 :05 Lipid Panel With LDL/HDL Comments: PATIENT WAS FASTINGPERFORMED BY: LocalyticsFreeman [facility] [id number] Ratio Cholesterol, Total 170 mg/dL (Normal) Range: [...] mg/dL (Normal) Comments: PATIENT WAS FASTINGPERFORMED BY: everyArt [facility] [id number] :05 Range: 2.5-4.5 PTH, Intact 19 pg/mL (Normal) Comments: PATIENT WAS FASTINGPERFORMED BY: everyArt [facility] [id number] :05 Range: 15-65 Vitamin D, 25-Hydroxy 38.9 ng/mL (Normal) Comments: PATIENT WAS FASTINGPERFORMED BY: [facility]6370 [facility] [id number] :05 Range: 32.0-100.0 Comments: Recent studies consider the lower limit of 32.0 ng/mL to be athreshold for optimal health.Otf HAYES. J Nutr. 2004;135(2):317-22. :40 HgA1C , Office (41040) HgA1C , Office 6.0 % (Normal) Range: 4.6 - 7.1 :40 Blood Glucose , Office (12530) Blood Glucose , Office 109 (Normal) :42 CBC With Differential/Platelet Comments: PATIENT WAS FASTINGPERFORMED BY: [facility]6370 [facility] [id number] Baso (Absolute) 0.0 {x10E3/uL} (Normal) Range: 0.0-0.2 [...] 11.7-15.0 WBC 4.2 {x10E3/uL} (Normal) Range: 4.0-10.5 59-Efc-792941:42 Comp. Metabolic Panel (14) Comments: PATIENT WAS FASTINGPERFORMED BY: LabCoV[facility]Dusoit2882 [facility] [id number] A/G Ratio 1.6 (Normal) Range: 1.1-2.5 Albumin, [...] Sodium, Serum 140 mmol/L (Normal) Range: 135-145 :09 FECAL OCCULT HGB ASSAY, QUAL, 1-3 SIMULTANEOUS DETERMINATIONS (26067) FECAL OCCULT HGB ASSAY, QUAL, 1-3 SIMULTANEOU neg (Normal) :42 Microscopic Examination Comments: PATIENT WAS FASTINGPERFORMED BY: [facility]FocusAt[facility] [id number] Bacteria None seen (Normal) Cast Type Hyaline casts (Normal) Casts Present {/lpf} (Abnormal) Epithelial Cells (non renal) 0-10 {/hpf} (Normal) Range: 0 - 10 Mucus Threads Present (Normal) RBC 0-3 {/hpf} (Normal) Range: 0 - 3 WBC 0-5 {/hpf} (Normal) Range: 0 - 5 :42 URINALYSIS W/O MICRO (14565) Comments: PATIENT WAS FASTINGPERFORMED BY: [facility]Focus[facility] [id number] Appearance Clear (Normal) Bilirubin Negative (Normal) Glucose Negative (Normal) Ketones Negative (Normal) Microscopic Examination See below: (Normal) Nitrite, Urine Negative (Normal) Occult Blood Negative (Normal) pH 5.0 (Normal) Range: 5.0-7.5 Protein 1+ (Abnormal) Specific Spencer 1.013 (Normal) Range: 1.005-1.030 Urine-Color Yellow (Normal) Urobilinogen,Semi-Qn 0.2 mg/dL (Normal) Range: 0.0-1.9 WBC Esterase 1+ (Abnormal) :42 MICROALBUMIN: CREATININE RATIO Comments: PATIENT WAS FASTINGPERFORMED BY: [facility]Focus[facility] [id number] ([id number]) AND (78048) Creatinine, Urine 76.1 mg/dL (Normal) Range: 15.0-278.0 Microalb/Creat Ratio 292.1 {ug/mg_creat} (Abnormal) Range: 0.0-30.0 Microalbumin, Urine 222.3 ug/mL (Abnormal) Range: 0.0-17.0 :42 CBC WITH MANUAL DIFF (00838) Comments: PATIENT WAS FASTINGClinical Information: ADD DRAW FEE [id number] ADD J 08845 PERFORMED BY: EVE [employer]70 [facility] [id number] Baso (Absolute) 0.0 {x10E3/uL} (Normal) Range: 0.0-0.2 [...] PANEL, COMPREHENSIVE Comments: PATIENT WAS FASTINGPERFORMED BY: [employer] Lsfunq1005 [facility] [id number] (32040) A/G Ratio 1.8 (Normal) Range: 1.1-2.5 Albumin, [...] Sodium, Serum 141 mmol/L (Normal) Range: 135-145 6-Hqy-709958:23 HgA1C , Office (44514) HgA1C , Office 6.0 % (Normal) Range: 4.6 - 7.1 2-Uam-845800:23 Blood Glucose , Office (33239) Blood Glucose , Office 103 (Normal) 34-Gnk-463760:38 CBC WITH MANUAL DIFF (25923) Comments: PATIENT WAS FASTINGClinical Information: ADD DRAW FEE [id number] ADD J 02272 PERFORMED BY: EVE [facility][id number] [facility] [id number] Baso (Absolute) 0.0 {x10E3/uL} (Normal) Range: 0.0-0.2 [...] 11.7-15.0 WBC 4.0 {x10E3/uL} (Normal) Range: 4.0-10.5 72-Nrr-388890:38 METABOLIC PANEL, COMPREHENSIVE Comments: PATIENT WAS FASTINGPERFORMED BY: ACACIA SemiconductorCoVirtua [facility])[id number] [facility] [id number] (54080) A/G Ratio 1.8 (Normal) Range: 1.1-2.5 Albumin, [...] Sodium, Serum 142 mmol/L (Normal) Range: 135-145 70-Toe-931017:38 HEPATIC FUNCTION PANEL Comments: PATIENT WAS FASTINGPERFORMED BY: Position[employer] LabCoImprimis PharmaceuticalsByimhf4412 [facility] [id number] (29267) Bilirubin, Direct 0.08 mg/dL (Normal) Range: 0.00-0.40 11-Bur-589139:38 LIPID PANEL (78443) Comments: PATIENT WAS FASTINGPERFORMED BY: [employer] [facility] Yiqcja8031 [facility] [id number] Cholesterol, Total 200 mg/dL (Abnormal) Range: 100-199 [...] (Normal) Range: 5-40 :36 HgA1C , Office (68295) HgA1C , Office 6.1 % (Normal) Range: 4.6 - 7.1 :36 Blood Glucose , Office (94059) Blood Glucose , Office 98 (Normal) :33 CBC With Differential/Platelet Comments: PATIENT WAS FASTINGClinical Information: SRC:UR PERFORMED BY: [facility] Chjnyq8078 [facility] [id number] Baso (Absolute) 0.0 {x10E3/uL} (Normal) Range: 0.0-0.2 [...] 11.7-15.0 WBC 4.8 {x10E3/uL} (Normal) Range: 4.0-10.5 31-Wdg-978827:33 Comp. Metabolic Panel (14) Comments: PATIENT WAS FASTINGPERFORMED BY: LabCoVirt[facility][id number] [facility] [id number] A/G Ratio 1.6 (Normal) Range: 1.1-2.5 Albumin, [...] Serum 92 mg/dL (Normal) Range: 65-99 If -Burkinan 57 mL/min/1.73 Comments: Note: Persistent reduction for [...] With LDL/HDL Comments: PATIENT WAS FASTINGPERFORMED BY: Avocado EntertainmentVirt[facility])[id number] [facility] [id number] Ratio Cholesterol, Total 174 mg/dL (Normal) Range: [...] Urine Culture,Comprehensive Comments: PATIENT WAS FASTINGPERFORMED BY: LabTalkPlusVirt[facility])Pokxnx8825 [facility] [id number] Antimicrobial MIHEAD (Normal) Comments: S = Susceptible; [...] Enterococcus. (Normal) Urine Final report (Normal) Culture,Comprehensive 1-Kns-441405:10 HgA1C , Office (84086) HgA1C , Office 5.9 % (Normal) Range: [...] mL (Normal) URINE PROTEIN 20.0 mg/dL (Abnormal) 47-Wha-990419:17 Urine Culture,Comprehensive Comments: Clinical Information: SRC:UR PERFORMED BY: [facility]6370 [facility] [id number] Result 1 CNSNSS (Normal) Comments: Coagulase negative Staphylococcus species, not Staphylococcussaprophyticus.600 Colonies/mLSusceptibility or resistance of staphylococci to oxacillin predictssusceptibility or resistance to (a) other be lb-fjqqtlnyl-drjqjptutvkmqrlhj such as cloxacillin and dicloxacillin, (b) combinationsof a penicillin and a beta-lactamase inhibitor, and(c) anti- staphylococcal cephalosporins. Routine testing of otherp enicillins, beta-lactam/beta-lactamase inhibitor combinations,cephems, and carbapenems is not advised by the CLSI Standards(U303-D97, 2005). S = Susceptible; I = Intermediate; R = Resistant * P = Positive; N = Negative MICS are expressed in micrograms per mL Antibiotic RSLT#1 RSLT#2 RSLT#3 RSLT#4Ciprofloxacin RGentami kristian SLevofloxacin RNitrofurantoin SOxacillin SPenicillin RRifampin STrimethoprim/Sulfa SVancomycin S Urine Final report Culture,Comprehensi (Normal) ve :53 Metabolic Panel, Basic (71835) Comments: PATIENT NOT FASTINGClinical Information: ADD DRAW FEE [id number] ADD J 36545 PERFORMED BY: [facility] [id number] [facility] [id number] BUN 39 mg/dL (Abnormal) Range: 5-26 BUN/Creatinine Ratio 33 (Abnormal) Range: 8-27 Calcium, Serum 9.8 mg/dL (Normal) Range: 8.5-10.6 Carbon Dioxide, Total 22 mmol/L (Normal) Range: 20-32 Chloride, Serum 103 mmol/L (Normal) Range: 97-108 Creatinine, Serum 1.20 mg/dL (Abnormal) Range: 0.57-1.00 Glom Filt Rate, Est 45 mL/min/1.73 Range: 60-128 (Abnormal) Glucose, Serum 101 mg/dL (Abnormal) Range: 65-99 If -Burkinan 55 mL/min/1.73 Range: 60-128 (Abnormal) Comments: Note: Persistent reduction for 3 months or more in an eGFR<60 mL/min/1.73 m2 defines CKD. Patients with eGFR values>/=60 mL/min/1.73 m2 may also have CKD if evidence of persistentproteinuria is present. Additional information may be found [email or web address].org. Potassium, Serum 5.1 mmol/L (Normal) Range: 3.5-5.2 Sodium, Serum 139 mmol/L (Normal) Range: 135-145 :09 HgA1C , Office (95685) HgA1C , Office 6.1 % (Normal) Range: 4.6 - 7.1 :09 Blood Glucose , Office (79446) Blood Glucose , Office 163 (Normal) :37 SPINE,LUMBAR (ROUTINE) Radiology Report See Note (Normal) Comments: Exam Number: [id number] MRI LUMBAR SPINE CLINICAL STATEMENTLow back pain [...] onboth sides. Reported By: MODESTA COPE M.D. 04-Yzy-967566:00 BILAT SCRN DIGITAL & CAD Radiology Report See Note (Normal) Comments: Exam Number: [id number] MAMMOGRAM, BILATERAL SCREENING DIGITAL AND CAD HISTORYRoutine screening. Full field digital images were obtained in mediolateral oblique andcraniocaudal projections. CAD images w ere reviewed. The current study is compared to the [facility]. A small metal marker is placed on [...] mammograms werealso examined with computer-aided detection software ([employer], [employer], [employer].). Reported By: DONNA OEJDA M.D. 49-Jnx-521995:59 DEXA BONE DENSITY STUDY () Radiology Report See Note (Normal) Comments: Exam Number: [id number] BONE DENSITOMETRY HISTORYPost menopausal. TECHNIQUE Bone densitometry [...] Report See Note (Normal) Comments: Exam Number: [id number] FIVE VIEW LUMBAR SPINE AP, lateral, both [...] By: MAIRA GARZA M.D. :19 Microalb/Creat Ratio, [facility] Comments: PATIENT NOT FASTINGPERFORMED BY: LabCoV[facility])[id number] [facility] [id number] Creatinine, Urine 46.8 mg/dL (Normal) Microalb/Creat Ratio 712.8 {ug/mg_creat} (Abnormal) Range: 0.0-30.0 Microalbum.,U,Random 333.6 ug/mL (Abnormal) Range: 0.0-17.0 :13 Creatinine Clearance Comments: PATIENT NOT FASTINGClinical Information: HT-5'4'' WT-184 PERFORMED BY: EVE Avocado EntertainmentVirt[facility])[id number] [facility] [id number] Creatinine Clearance 40 mL/min (Abnormal) Range: 88-128 Comments: The above range is based on 1.73 square meter average body surfacearea. Creatinine, Serum 1.30 mg/dL (Normal) Range: 0.50-1.50 Creatinine, Ur 24hr 754.8 {mg/24_hr} Range: 800.0-1800.0 (Abnormal) Creatinine, Urine 44.4 mg/dL (Normal) Glom Filt Rate, Est 41 mL/min (Abnormal) Range: 60-128 If -Burkinan 50 mL/min (Abnormal) Range: 60-128 Comments: Note: Persistent reduction for 3 months or more in an eGFR<60 mL/min/1.73 m2 defines CKD. Patients with eGFR values>/=60 mL/min/1.73 m2 may also have CKD if evidence of persistentproteinuria is present. .Additional information may be found at www.kdoqi.org. :13 Protein Total, Qn, 24-Hr Comments: PATIENT NOT FASTINGPERFORMED BY: [facility] EntertainmentV[facility])[id number] [facility] [id number] Urine Protein,Total,Urine 49.0 mg/dL (Abnormal) Range: 0.0-15.0 Prt, 24hr calculated 833.0 {mg/24_hr} (Abnormal) Range: 30.0-150.0 61-Wvx-347917:00 CBCD,SMEAR DIFF CELLS COUNTED 100 (Normal) EOS [...] T PROT 6.6 g/dL (Normal) Range: 6.4-8.2 65-Axm-238119:00 D BILI 0.06 mg/dL (Normal) Range: 0.00-0.30 70-Fya-539743:00 LIPID CHOL 175 mg/dL (Normal) Comments: <200 [...] mg/dL VLDL 12 mg/dL (Normal) Range: 5-40 26-Crw-767361:00 TSH 0.84 {uIU/mL} (Normal) Range: 0.34-4.82 Plan [...] mellitus type II, controlled : Eprescribed prescriptions (G53) Indication: Diabetes mellitus type II, controlled Diabetes [...] of skin Planned Observations Vitamin D Hydroxy (77262)Indication: Vitamin D deficiency On: : Request URINALYSIS, W/ MICRO (83683)Indication: Chronic kidney disease, stage 3 On: : Request LIPID PANEL (83537)Indication: Mixed hyperlipidemia On: : Request CBC W/AUTO DIFF WBC (43211)Indication: Chronic kidney disease, stage 3 On: :25 Request METABOLIC PANEL, COMPREHENSIVE (36312)Indication: Chronic kidney disease, stage 3 On: :25 Request HGB A1C (64536)Indication: Diabetes mellitus type II, controlled On: 92-Fue-643545:24 Request Parathyroid Hormone-related Peptide (PTH-rP) (67127)Indication: Vitamin D deficiency On: 4-Zdl-349542:43 Request Comments: send results to Dr. Santana fax: [phone] VITAMIN D, 1, 25-DIHYDROXY (70982)Indication: Vitamin D deficiency On: 6-Fwl-611391:42 Request Comments: send results to Dr. Santana fax: [phone] Clostridium difficile Toxin A+B, EIA (74031)Indication: Chronic diarrhea On: 0-Vkg-356402:36 Request Vitamin D Hydroxy (96902)Indication: Osteopenia On: 0-Nnz-970055:20 Request CBC W/AUTO DIFF WBC (36702)Indication: Hypertension, benign On: 9-Mlc-122233:16 Request CALCIFEDIOL (95208)Indication: Chronic kidney disease, stage 3 On: :04 Request Renal function Panel (33626)Indication: Chronic kidney disease, stage 3 On: :04 Request Magnesium (91174)Indication: Chronic kidney disease, stage 3 On: :04 Request MICROALBUMIN: CREATININE RATIO (15758) AND (65232)Indication: Chronic kidney disease, stage 3 On: :04 Request Parathyroid Hormone-related Peptide (PTH-rP) (91913)Indication: Chronic kidney disease, stage 3 On: :04 Request T4, FREE (THYROXINE) (16545)Indication: Cold feeling On: :31 Request TSH (41241)Indication: Cold feeling On: :31 Request PARATHORMONE (01098)Indication: Chronic kidney disease, stage 3 On: :18 Request Comments: copy to Dr. Santana [phone] CALCIFIDIOL (53366) VIT D 25Indication: Chronic kidney disease, stage 3 On: :16 Request Comments: copy to Dr. Santana [phone] MAGNESIUM (64343)Indication: Chronic kidney disease, stage 3 On: :15 Request Comments: copy to Dr. Santana [phone] PROTEIN/CREAT RATIO, URINE (77091)Indication: Chronic kidney disease, stage 3 On: :15 Request Comments: copy to Dr. Santana [phone] LIPID PANEL (85216)Indication: Mixed hyperlipidemia On: :21 Request CBC with auto diff (70410)Indication: Diabetes mellitus type II, controlled On: 23-Ocq-870835:20 Request METABOLIC PANEL, COMPREHENSIVE (58615)Indication: Diabetes mellitus type II, controlled On: 06-Jhe-952814:20 Request HGB A1C (73928)Indication: Diabetes mellitus type II, controlled On: :10 Request Vitamin D Hydroxy (69427)Indication: Osteopenia On: :08 Request TSH (THYROID STIMULATING HORMONE) (57770)Indication: Depression On: 72-Vxl-226878:06 Request LIPID PANEL (63449)Indication: Other and unspecified hyperlipidemia On: :06 Request CBC with auto diff (38761)Indication: Diabetes mellitus type II, controlled On: 10-Mhl-427642:06 Request METABOLIC PANEL, COMPREHENSIVE (96735)Indication: Diabetes mellitus type II, controlled On: 33-Jkj-924880:06 Request CREATININE CLEARANCE (39281)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 On: 2-Lfj-620485:38 Request Total Protein,24 Hour Urine (43162)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 On: 9-Noc-507906:38 Request CBC W/AUTO DIFF WBC (14445)Indication: Diabetes mellitus type II, controlled On: 56-Rwh-107554:11 Request HgA1C , Office (96102)Indication: Diabetes mellitus type II, controlled On: 09-Qgx-109087:23 Request CULTURE, SPUTUM (19522)Indication: Cough On: 00-Bjw-974509:47 Request HEPATIC FUNCTION PANEL (13582)Indication: Elevated LFTs On: 78-Uel-12263:24 Request CREATININE CLEARANCE (66590)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 On: :33 Request 24 hour urine for Protein (06942)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 On: :33 Request CBC WITH MANUAL DIFF (23794)Indication: Diabetes mellitus type II, controlled On: :29 Request METABOLIC PANEL, COMPREHENSIVE (74941)Indication: Diabetes mellitus type II, controlled On: :29 Request LIPID PANEL (96996)Indication: Mixed hyperlipidemia On: :29 Request CREATININE CLEARANCE (21987)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 On: 4-Uez-629229:45 Request 24 hour urine for Protein (79500)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 On: 8-Tuu-692484:45 Request CREATININE CLEARANCE (08398)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 On: 05-Gpo-227086:57 Request 24 hour urine for Protein (87436)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 On: 36-Xda-193734:57 Request METABOLIC PANEL, COMPREHENSIVE (21898)Indication: Hypertension, benign On: :32 Request LIPID PANEL (46856)Indication: Mixed hyperlipidemia On: 32-Tfd-21411:32 Request C-REACTIVE PROTEIN (85770)Indication: Fatigue On: :24 Request SED RATE ERYTHROCYTE (31666)Indication: Headache On: :24 Request VITAMIN B-12 (CYANOCOBALAMIN) (70094)Indication: Fatigue On: :24 Request LIPID PANEL (38958)Indication: Mixed hyperlipidemia On: :41 Request CBC WITH MANUAL DIFF (89500)Indication: Hypertension, benign On: :41 Request METABOLIC PANEL, COMPREHENSIVE (38645)Indication: Hypertension, benign On: :41 Request CREATININE CLEARANCE (33381)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 On: :34 Request 24 hour urine for Protein (07850)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 On: :34 Request LIPID PANEL (10008)Indication: Mixed hyperlipidemia On: :22 Request HEPATIC FUNCTION PANEL (75706)Indication: Mixed hyperlipidemia On: :22 Request Vitamin D Hydroxy (98110)Indication: Hypercalcemia On: :22 Request PHOSPHORUS (50218)Indication: Hypercalcemia On: 3-Kez-799910:22 Request PARATHORMONE (60061)Indication: Hypercalcemia On: :22 Request METABOLIC PANEL, COMPREHENSIVE (88609)Indication: Hypercalcemia On: 1-Ica-032461:22 Request CBC WITH MANUAL DIFF (05201)Indication: fsgs On: :58 Request LIPID PANEL (67231)Indication: Mixed hyperlipidemia On: :58 Request METABOLIC PANEL, COMPREHENSIVE (01630)Indication: Hypertension, benign On: 9-Vvx-114484:58 Request Blood Glucose , Office (87623)Indication: Diabetes mellitus type II, controlled On: 5-Lsw-497710:10 Request TSH (03415)Indication: Diabetes mellitus type II, controlled On: 69-Jic-363755:51 Request METABOLIC PANEL, COMPREHENSIVE (11056)Indication: Diabetes mellitus type II, controlled On: 10-Txv-550455:51 Request CBC WITH MANUAL DIFF (62824)Indication: Diabetes mellitus type II, controlled On: 09-Avk-614787:51 Request MICROALBUMIN: CREATININE RATIO (51985) AND (51761)Indication: Diabetes mellitus type II, controlled On: 28-Ujr-108686:51 Request HEPATIC FUNCTION PANEL (19058)Indication: Other and unspecified hyperlipidemia On: :51 Request LIPID PANEL (26807)Indication: Other and unspecified hyperlipidemia On: :51 Request HgA1C , Office (33514)Indication: Diabetes mellitus type II, controlled On: :37 Request Blood Glucose , Office (34368)Indication: Diabetes mellitus type II, controlled On: :37 Request Planned Encounters Medical; [facility] 3 Month FU - On: 22-Mar-2018 11:00 [facility] Fast DO, Chaparrita A Fast DO, Chaparrita A Planned Procedures DRAIN/INJECT MAJOR JOINT OR BURSA On: 07-Feb-2018 Intent ()By: Keri Singh MD Comments: lot no [id number] exp date 2017-12-26 DRAIN/INJECT MAJOR JOINT OR BURSA On: 31-Jan-2018 Intent ()By: Keri Singh MD Comments: Lot#[id number]:1-57-88Efttd:intra articular Site given:left knee Given By: Dr. Singh ABN signed DRAIN/INJECT MAJOR JOINT OR BURSA On: 24-Jan-2018 Intent ()By: Keri Singh MD Comments: Lot#[id number]: 1-97-03Kvujn:intra artciular Site given:left knee Given By: Dr. Singh ABN signed Euflexxa Echo CompleteBy: Fast DO, Chaparrita A On: 16-Dec-2017 Intent Fast DO, Chaparrita A Flu Vaccine (Quadrivalent) 53121Ff: On: 16-Dec-2017 Intent Fast DO, Chaparrita A Fast DO, Chaparrita A Comments: Lot: #[id number]: 10/01/18Site: L dltd, IMDose prefilled syringegiven by: Jamie reviewed and ABN signed Kenalog Injection, 10 mgm On: 03-Oct-2017 Intent (J3301)By: Keri Singh MD Comments: lot: [id number]: 11/20site/route: L knee Cartoid DopplerBy: Fast DO, Chaparrita A On: 12-Sep-2017 Intent Fast DO, Chaparrita A Comments: november DIGITAL TOMOSYNTHESIS OF On: 12-Sep-2017 Intent BREAST (43293)By: Ambrocio WOLFF Chaparrita A Comments: due november 02 Ambrocio WOLFF Chaparrita A Kenalog Injection, 10 mgm On: 06-Jun-2017 Intent (J3301)By: Keri Singh MD Comments: bupivacacine 0.5% [id number] exp 09-20 kenalog 40 mg injected in. [id number] 07-21 MRI OF BRAIN WITH AND WITHOUT On: 06-Jun-2017 Intent CONTRAST (01173)By: Ambrocio WOLFF Chaparrita A Fast DO, Chaparrita A ELECTROCARDIOGRAM, COMPLETE (ECG) On: 06-Jun-2017 Intent (31655)By: Case Albrecht DOa A Fast Comments: ekg showed normal sinus rhythym, normal axis, no acute st/t wave changes DO, Chaparrita A INFUSION, NORMAL SALINE SOLUTION , On: 10-May-2017 Intent 1000 CC (Special Coverage Comments: 2 liters total Instructions Apply. See MCM: 2048) (J7030)By: Case Albrecht DOa A Fast DO, Chaparrita A INFUSION, NORMAL SALINE SOLUTION , On: 10-May-2017 Intent 1000 CC (Special Coverage Comments: lot:[id number]:IV left anticub dose:1000ml given by:eliazar Araya LPN Instructions Apply. See MCM: 2048) (J7030)By: Case Albrecht DOa A Ambrocio DO, Chaparrita A Radiology - Chest- PA and LatBy: On: 05-May-2017 Intent Keri Singh MD Aerosol Treatment (39007)By: On: 05-May-2017 Intent Keri Singh MD Radiology - ChestBy: Francisco MANN, On: 05-May-2017 Intent Keri Alonzo Comments: call wet read DRAIN/INJECT MAJOR JOINT OR BURSA On: 28-Feb-2017 Intent (85635)By: Keri Singh MD Comments: 1 cc Kenelog #[id number] Marcaine #[id number] Kenalog Injection, 10 mgm On: 28-Feb-2017 Intent (J3301)By: Keri Singh MD ELECTROCARDIOGRAM, COMPLETE (ECG) On: 10-Jan-2017 Intent (92902)By: Chaparrita Albrecht DO Fast Comments: ekg showed normal sinus rhythym, normal axis, no acute st/t wave changes Chaparrita WOLFF A Flu Vaccine (Quadrivalent) 38723Rr: On: 27-Dec-2016 Intent SHONDA Andrade DRAIN/INJECT MAJOR JOINT OR BURSA On: 20-Aug-2016 Intent ()By: Keri Singh MD DRAIN/INJECT MAJOR JOINT OR BURSA On: 13-Aug-2016 Intent ()By: SHONDA Andrade Comments: lot: [id number]:intra articular dose:2ml given by:Dr. Francisco HUMPHREY signedER, [employer]ING [employer]PERVISOR injection #3 DOPPLER ULTRASOUND OF RIGHT CAROTID On: 10-Aug-2016 Intent ARTERY (80104)By: Ambrocio DO Chaparrita A Comments: end of october Fast DO, Chaparrita A DEXA SCAN AXIAL SKELETON (35427)By: On: 10-Aug-2016 Intent Ambrocio WOLFF, Chaparrita A Fast DO, Chaparrita A Comments: end of october SCREENING DIGITAL TOMOSYNTHESIS OF On: 10-Aug-2016 Intent BREAST (75799)By: Case Albrecht DOa A Comments: end of october Fast DO, Chaparrita A DRAIN/INJECT MAJOR JOINT OR BURSA On: 06-Aug-2016 Intent ()By: Keri Singh MD DRAIN/INJECT INTERMED JOINT/BURSA On: 06-Aug-2016 Intent ()By: SHONDA Andrade Comments: lot:[id number]:left knee dose:2mlgiven by:Dr. Francisco HUMPHREY signedER, [employer]ING [employer] SUPERVISOR injection number 2 Venous Doppler - LeftBy: Ambrocio WOLFF, On: 03-Aug-2016 Intent Chaparrita A Fast DO, Chaparrita A Comments: This is set up for August 05 at 11am- spoke with Rina in cv. DRAIN/INJECT INTERMED JOINT/BURSA On: 30-Jul-2016 Intent ()By: Keri Singh MD Comments: lot:[id number]:intra articular left knee dose: 2ml given by: Dr. Francisco HUMPHREY signedER, [employer]ING [employer] SUPERVISOR injection #1 Radiology - Knee - LeftBy: Fast DO, On: 26-May-2016 Intent Chaparrita A Fast DO, Chaparrita A Flu Vaccine (Quadrivalent) 07879Sw: On: 27-Jan-2016 Intent Fast DO, Chaparrita A Fast DO, Chaparrita A Comments: Lot #:[id number] date:10/01/16mount given:0.5mlRoute: IMSite given: left deltoidGiven by: CARMELINA Hook ADMINISTRATION OF INFLUENZA VIRUS On: 27-Jan-2016 Intent VACCINE (G0008)By: Fast DO, Chaparrita A Fast DO, Chaparrita A DOPPLER ULTRASOUND OF RIGHT CAROTID On: 22-Oct-2015 Intent ARTERY (47221)By: Fast DO, Chaparrita A Fast DO, Chaparrita A MAMMOGRAM, SCREENING, BOTH BREAST On: 22-Oct-2015 Intent (01030)By: Fast DO, Chaparrita A Fast DO, Chaparrita A Ultrasound - RenalBy: Fast DO, On: 14-Jul-2015 Intent Chaparrita A Fast DO, Chaparrita A Radiology - Knee - Left - Weight On: 11-Mar-2015 Intent BearingBy: Fast DO, Chaparrita A Fast DO, Chaparrita A Radiology - Knee - Right - Weight On: 11-Mar-2015 Intent BearingBy: Fast DO, Chaparrita A Fast DO, Chaparrita A Flu Vaccine (Quadrivalent) 02673Ad: On: 11-Feb-2015 Intent Fast DO, Chaparrita A Fast DO, Chaparrita A EKG (49524)By: Fast DO, Chaparrita A On: 05-Nov-2014 Intent Fast DO, Chaparrita A Comments: ekg showed normal sinus rhythym, normal axis, no acute st/t wave changes left axis DRAIN/INJECT SMALL JOINT OR BURSA On: 07-Oct-2014 Intent ()By: Keri Singh MD MAMMOGRAM, SCREENING, BOTH BREAST On: 02-Aug-2014 Intent (37928)By: Fast DO, Chaparrita A Fast Comments: meera DO, Chaparrita A Cartoid DopplerBy: Fast DO, Chaparrita A On: 02-Aug-2014 Intent Fast DO, Chaparrita A DEXA SCAN AXIAL SKELETON (69188)By: On: 09-Apr-2014 Intent Fast DO, Chaparrita A Fast DO, Chaparrita A Prevnar 13 (42178)By: Ambrocio DO, On: 30-Jan-2014 Intent Chaparrita A Fast DO, Chaparrita A Comments: Lot:[id number]:05/20Dose:0.5Route:imSite:l armGiven By:Jarred signed FLU VAC, SPLIT, >3 YEARS, INTRAMUSC On: 16-Jan-2014 Intent (92627)By: Chaparrita Albrecht DO A Ambrocio Comments: Lot #:[id number] date:12/2015Amount given:0.5mlRoute: IMSite given: left deltoidGiven by: CARMELINA Hook DO, Chaparrita A ADMINISTRATION OF INFLUENZA VIRUS On: 16-Jan-2014 Intent VACCINE (G0008)By: Ambrocio DO, Chaparrita A Fast DO, Chaparrita A EKG (47701)By: Fast DO, Chaparrita A On: 17-Oct-2013 Intent Fast DO, Chaparrita A Comments: ekg showed normal sinus rhythym, left axis, no acute st/t wave changes Radiology - Chest- PA and LatBy: On: 17-Sep-2013 Intent Fast DO, Chaparrita A Fast DO, Chaparrita A Aerosol Treatment (68084)By: Ambrocio On: 17-Sep-2013 Intent DO, Chaparrita A Fast DO, Chaparrita A MRI - BrainBy: Fast DO, Chaparrita A On: 22-Jul-2013 Intent Fast DO, Chaparrita A Cartoid DopplerBy: Fast DO, Chaparrita A On: 20-Jul-2013 Intent Fast DO, Chaparrita A MAMMOGRAM, SCREENING, BOTH BREASTS On: 20-Jul-2013 Intent (62207)By: Fast DO, Chaparrita A Fast DO, Chaparrita A Eprescribed prescriptions On: 20-Jul-2013 Intent (G8553)By: Fast DO, Chaparrita A Fast DO, Chaparrita A Eprescribed prescriptions On: 02-Feb-2013 Intent (G8553)By: Марина Concepcion FLU VAC, SPLIT, >3 YEARS, INTRAMUSC On: 03-Jan-2013 Intent (67958)By: Марина Concepcion Comments: Lot #:[id number] date:mount given:0.5mlRoute: IMSite given: L dltdVIS and ABN signedGiven by: CARMELINA Hook ADMINISTRATION OF INFLUENZA VIRUS On: 03-Jan-2013 Intent VACCINE (G0008)By: Марина Concepcion CT - Abdomen & Pelvis (IV Contrast On: 17-Oct-2012 Intent Needed)By: Chaparrita Albrecht DO A Ambrocio Comments: patient will be calling to set up DO, Chaparrita A Eprescribed prescriptions On: 10-Oct-2012 Intent (G8553)By: Марина Concepcion Ear Irrigation ([id number])By: [place] On: 13-Jun-2012 Intent Ivy Comments: Ear Irrigation performed on: right earAmount/color removed cerumen: light brown, small amount removedOUtcome:Pt toleratedUsed wax curettes Wax [place] ([id number])By: Rome, On: 13-Jun-2012 Intent Ivy PNEUM VAC ADLT/IMUMNOSPR, SBC/INTRM On: 13-Jun-2012 Intent ([id number])By: Chaparrita Albrecht DO Comments: Lot:[id number]:09/09/13Dose:0.5mLRoute:IMSite:L armGiven By:BHUMI signed DO, Chaparrita A EKG ([id number])By: Case Albrecht DOa A On: 13-Jun-2012 Intent [...] MAMMOGRAM, SCREENING, BOTH BREASTS On: 28-Dec-2011 Intent ([id number])By: Case Albrecht DOa A Ambrocio DO, Chaparrita A DXA, BONE DENSITY, AXIAL SKELETON On: 28-Dec-2011 Intent ([id number])By: Ambrocio WOLFF Chaparrita A Fast DO, Chaparrita A MRI - BrainBy: Ambrocio DO, Chaparrita A On: 28-Dec-2011 Intent Ambrocio DO Chaparrita A Comments: end of jan Cartoid DopplerBy: Fast DO, Chaparrita A On: 28-Dec-2011 Intent Fast DO, Chaparrita A Comments: jan Ultrasound - PelvisBy: Fast DO, On: 28-Dec-2011 Intent Chaparrita A Fast DO, Chaparrita A FLU VAC, SPLIT, >3 YEARS, INTRAMUSC On: 28-Dec-2011 Intent ([id number])By: Марина Concepcion Comments: Lot #:[id number] date:mount given:0.5mlRoute: IMSite given: left deltoidGiven by: CARMELINA Hook ADMINISTRATION OF INFLUENZA VIRUS On: 28-Dec-2011 Intent VACCINE (G0008)By: Марина Concepcion Aerosol Treatment ([id number])By: Ciesa On: 30-Nov-[address] - Abdomen & PelvisBy: Fast DO, On: 21-Sep-2011 Intent Chaparrita A Fast DO, Chaparrita A Comments: with special cuts through the kidney- october EKG ([id number])By: Марина Concepcion On: 15-Jun-2011 Intent Comments: ekg [...] Comments: Call results to Dr. Albrecht @ [phone] as soon as resulted please. DO, Chaparrita A Eprescribed prescriptions On: 11-Jan-2011 Intent ([id number])By: Fast DO, Chaparrita A Fast DO, Chaparrita A MAMMOGRAM, SCREENING, BOTH BREASTS On: 11-Jan-2011 Intent ([id number])By: Ambrocio DO, Chaparrita A Fast DO, Chaparrita A CT - Sinuses CompleteBy: Fast DO, On: 11-Jan-2011 Intent Chaparrita A Fast DO, Chaparrita A Cartoid DopplerBy: Fast DO, Chaparrita A On: 11-Jan-2011 Intent Fast DO, Chaparrita A ADMINISTRATION OF INFLUENZA VIRUS On: 11-Jan-2011 Intent VACCINE (G0008)By: Марина Concepcion FLU VAC, SPLIT, >3 YEARS, INTRAMUSC On: 11-Jan-2011 Intent ([id number])By: Марина Concepcion Eprescribed prescriptions On: 12-Oct-2010 Intent ([id number])By: Ambrocio DO, Chaparrita A Fast DO, Chaparrita A Renal DopplerBy: Fast DO, Chaparrita A On: 12-Oct-2010 Intent Fast DO, Chaparrita A Cartoid DopplerBy: Fast DO, Chaparrita A On: 12-Oct-2010 Intent Fast DO, Chaparrita A Comments: sept TDAP VACCINE >7 IM ([id number])By: On: 13-May-2010 Intent Helena Tineo LPN Comments: Lot #[id number]/[id number]-left deltoidgiven by:[facility] EKG ([id number])By: Марина Concepcion On: 13-May-2010 Intent Comments: ekg showed normal sinus rhythym, normal axis, no acute st/t wave changes Aerosol Treatment ([id number])By: Charlene On: 22-Dec-2009 Intent Johanna SANZ Cartoid DopplerBy: Fast DO, Chaparrita A On: 01-Dec-2009 Intent Fast DO, Chaparrita A MAMMOGRAM, SCREENING, BOTH BREASTS On: 01-Dec-2009 Intent ([id number])By: Ambrocio DO, Chaparrita A Fast DO, Chaparrita A DXA, BONE DENSITY, AXIAL SKELETON On: 01-Dec-2009 Intent ([id number])By: Fast DO, Chaparrita A Fast DO, Chaparrita A Ultrasound - SpleenBy: Fast DO, On: 17-Jun-2009 Intent Chaparrita A Fast DO, Chaparrita A EKG ([id number])By: Марина Concepcion On: 10-Mar-2009 Intent Comments: ekg showed normal sinus rhythym, normal axis, no acute st/t wave changes FLU VAC, SPLIT, >3 YEARS, INTRAMUSC On: 09-Jan-2009 Intent ([id number])By: Stacy Jorge Comments: Lot #[id number]-left deltoidDose0.5mlgiven by Marycarmen Jorge LPN ADMINISTRATION OF INFLUENZA VIRUS On: 09-Jan-2009 Intent VACCINE (G0008)By: Stacy Jorge MAMMOGRAM, SCREENING, BOTH BREASTS On: 04-Dec-2008 Intent ([id number])By: Fast DO, Chaparrita A Fast DO, Chaparrita A MAMMOGRAM, SCREENING, BOTH BREASTS On: 03-Sep-2008 Intent ([id number])By: Fast DO, Chaparrita A Fast DO, Chaparrita A FLU VAC, SPLIT, >3 YEARS, INTRAMUSC On: 16-Jan-2008 Intent ([id number])By: Janet Scherer RN Comments: Lot #: [id number] date: 09/10Amount given: 0.5 mlRoute: IMSite given: Left deltoidGiven by: Olivia Bell LPN ADMINISTRATION OF INFLUENZA VIRUS On: 16-Jan-2008 Intent VACCINE (G0008)By: Janet Scherer RN EKG ([id number])By: Fast DO, Chaparrita A On: 29-Aug-2007 Intent Fast DO, Chaparrita A Comments: done km ADMINISTRATION OF PNEUMOCOCCAL On: 29-Aug-2007 Intent VACCINE (G0009)By: Fast DO, Chaparrita A Fast DO, Chaparrita A PNEUM VAC ADLT/IMUMNOSPR, SBC/INTRM On: 29-Aug-2007 Intent ([id number])By: Fast DO, Chaparrita A Fast Comments: 0.5cc given im lt arm [id number] exp 02-13-08 DO, Chaparrita A DXA, BONE DENSITY, AXIAL SKELETON On: 29-Aug-2007 Intent ([id number])By: Fast DO, Chaparrita A Fast DO, Chaparrita A MAMMOGRAM, SCREENING, BOTH BREASTS On: 29-Aug-2007 Intent ([id number])By: Fast DO, Chaparrita A Fast DO, Chaparrita [...] new people and be involved in the [employer]ast[employer]arian 0 bps are good and sugar looking [...] medical issues: she has been working with [employer] and trying to work on that- she got rid of respiratory infection but was sick for weeks and was on pred so her sugar up and chol up a bit- trying to add protein shakes drink more water- she is starting back at [facility]- diarrhea resolved- we did talk about going [...] that she had episode where went to [facility] and she couldnt remember where she was- and happened one other time where she didnt recognize the roads- sister had alzheimer s- weight down because was sick- but coming back up- she hasnt done counseling with hospice has been thru before- she lonely- not necessarily unhappy- she doing self help she is singing with rastafarian- -rodriguez gars are all in low 100s-130- going to [employer] for a month next monthEncounter Diagnosis: Nonsmoker, [...] Eddie and bp is good she joined [employer] sugar up bit doi ng ice cream-the bone density reviewed little thinner she not exercising routienly until just recent at [employer] and sees kidney doc next week and [...] maribel cordelia in hospice - going to long term end of month- too much to care [...] for chronic medical issues: Pt states the [employer] is working wonderful. her mood great feels [...] visual acuity (yearly). Note for Physical exam: [facility] Wellness Physical- Talk about trying Myrbetriq., [...] Meningioma (Renamed from 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, 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, BRAIN/METAL RIVET 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)) [facility] [...] Meningioma (Renamed from 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, 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, BRAIN/METAL RIVET 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)), Diabetes, Type II, controlled [...] take byetta due to cost in [facility]- - takes ??lorazepam 1-2 times a [...] Meningioma (Renamed from 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, 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, BRAIN/METAL RIVET 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)), Colon Polyp [facility] [...] Meningioma (Renamed from 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, 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, BRAIN/METAL RIVET 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)), OCCLUSION AND STENOSIS OF [...] Meningioma (Renamed from ABNRM RESULT, FUNCTION STUDY, BRAIN/METAL RIVET 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)), Chronic glomerulonephritis with lesion [...] Meningioma (Renamed from ABNRM RESULT, FUNCTION STUDY, BRAIN/METAL RIVET 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)), Other and unspecified hyperlipidemia [...] Meningioma (Renamed from ABNRM RESULT, FUNCTION STUDY, 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/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] Meningioma (Renamed from ABNRM RESULT, FUNCTION STUDY, BRAIN/METAL RIVET 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)), Hypertension,benign(401.1), Osteopenia (733.90), Depression [...] weight down 23 pounds- and trying joined [employer]- she feels well - she increased celexa [...] Meningioma (Renamed from ABNRM RESULT, FUNCTION STUDY, BRAIN/METAL RIVET 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)), Chronic glomerulonephritis with lesion [...] Meningioma (Renamed from ABNRM RESULT, FUNCTION STUDY, BRAIN/METAL RIVET 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)) End: 26-Jan-2011 16:53 [facility] Office Visit On: 19-Jan-2011 14:30 Encounter Diagnosis: brain tumor End: 21-Sep-2011 8:09 [facility] Phone Encounter On: 19-Jan-2011 13:41 Encounter Diagnosis: ABNRM RESULT, FUNCTION STUDY, BRAIN/METAL RIVET 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) End: 19-Jan-2011 13:44 [facility] [...] Disc Disease - Lumbar (722.52[place] [facility] [place] [facility] [place] Visit On: 06-Dec-2007 [...] Disease - Lumbar (722.52), Osteopenia (733.90), Hypertension,benign(401.1), [facility] [place] [facility] Historical Summary On: 30-Aug-2007 [...] WITH RADICULOPATHY (724.4) [facility] Payers MedicareAARP/[facility] & HOSPITALGAGAN ALBERT; a guarantor
--- OUTSIDE RECORDS SUMMARY | 2018-06-25 22:07 | XMS RPT_ITS | Continuity of Care Document ---
:1940 Author Organization [facility] Address [address] [place] [address] Phone Care Team Providers Name Role Phone [...] Knee pain, unspecified laterality (719.46) Comments: Valorie:lot: [id number]: 09/20site/route: L knee Status: Active Leg pain, posterior, left (M79.605, 729.5) Status: Active Localized osteoarthritis of left knee (M17.12, 715.36) Comments: just had knee injection and doing well Status: Active [facility] WELLNESS EXAM Status: Active [...] immunization against influenza) (Z23, V04.81) Status: Active Need for prophylactic vaccination and inoculation against influenza (Renamed from Need for immunization against influenza) (Z23, V04.81) Comments: Lot #:[id number] date:09/19/2017Amount given:0.5mlRoute: IMSite given:L DltdGiven by: ElaineVIS and ABN signed [employer] Status: Active Nonsmoker (Z78.9, V49.89) Status: Active [...] Quantity: 90 {Tablet} Refills: 3 Ordered:28-Jun-2017 Ambrocio DO, Chaparrita AFast DO, Chaparrita A Start : 28-Jun-2017 Active Comments:Dr. Angelo idsla Coreg 25 MG Oral Tablet 1/2 Tablet bid for 0 days Quantity: 90 {Tablet} Refills: 3 Ordered:17-Nov-2017 Fast DO, Chaparrita AFast DO, Chaparrita A Start : 17-Nov-2017 Active FreeStyle Lite Test In Vitro Strip 1 (one) Strip Strip bid for 0 days Quantity: 100 {Strip} Refills: 5 Ordered:07-Mar-2017 Ambrocio DO, Chaparrita AFast DO, Chaparrita A Start : 07-Mar-2017 Active Comments:Dx:250.00 Hydrocodone-Acetaminophen 5-325 MG Oral Tablet 1 to 2 Tablet q 6hrs, prn for 0 days Quantity: 60 {Tablet} Refills: 0 Ordered:16-Dec-2017 Ambrocio DO, Chaparrita AFast DO, Chaparrita A Start : 16-Dec-2017 Active Myrbetriq 50 MG Oral Tablet Extended Release 24 Hour 1/2 -1 Tablet ER 24HR qhs for 0 days Quantity: 14 {Tablet} Refills: 0 Ordered:06-Jun-2017 Ambrocio DO, Chaparrita AFast DO, Chaparrita A Start : 06-Jun-2017 Active PROVENTIL HFA, 108 (90 Base)MCG/ACT (Inhalation Aerosol Solution) 2 (two) Puff(s) tid prn for 0 days Quantity: 1 {Inhaler} Refills: 0 Ordered:17-Sep-2013 Fast DO, Chaparrita AFast DO, Chaparrita A Start : 17-Sep-2013 Active Comments:rinse mouth after use SYMBICORT, 160-4.5MCG/ACT (Inhalation Aerosol) 2 (two) Aerosol Aerosol bid for 30 days Quantity: 1 {Inhaler} Refills: 3 Ordered:28-Sep-2013 Марина Concepcion Start : 28-Sep-2013 Active TraZODone HCl 150 MG Oral Tablet 1 tab Tablet qd for 0 days Quantity: 90 {Tablet} Refills: 3 Ordered:22-Aug-2017 Chaparrita Albrecht DOkaren WOLFF Chaparrita A Start : 22-Aug-2017 Active Victoza 18 [...] 60 {Capsule} Refills: 0 Ordered:16-Dec-2017 Chaparrita Albrecht DOkaren WOLFF Chaparrita Baker Start : 16-Dec-2017 Active Aricept 5 MG Oral Tablet 1 (one) Tablet qd in evening for 0 days Quantity: 30 {Tablet} Refills: 3 Ordered:16-Dec-2017 Inna Reynoso Start : 28-Sep-2017 End : 16-Dec-2017 Inactive Comments:may use generic Ativan 0.5 MG Oral Tablet 1 Tablet bid/prn for 30 days Quantity: 60 {Tablet} Refills: 0 Ordered:25-Oct-2017 Chaparrita Albrecht DOkaren Chaparrita Baker Start : 25-Oct-2017 End : 24-Nov-2017 Inactive Comments:sixty Benzonatate 200 MG Oral Capsule 1 (one) Capsule Capsule bid prn cough for 0 days Quantity: 20 {Capsule} Refills: 0 Ordered:06-Jun-2017 Chaparrita Albrecht DOkaren WOLFF Chaparrita Baker Start : 05-May-2017 End : 06-Jun-2017 Inactive [...] spray daily for 0 days Quantity: 1 {[place]} Refills: 0 Ordered:04-May-2016 SHONDA Andrade Start : [...] and dispense 8 ounes TOTAL mixed solutionCal [id number] if questions SPECTAZOLE, 1% (External Cream) 1 [...] Quantity: 60 {Tablet} Refills: 3 Ordered:20-Jul-2013 Fast Case WOLFFa AFast DO, Chaparrita A Start : 20-Jul-2013 End : 20-Jul-2013 Discontinued ZOLPIDEM TARTRATE, 10MG (Oral Tablet) 1 (one) Tablet Tablet qhs prn for 0 days Quantity: 30 {Tablet} Refills: 0 Ordered:11-Feb-2015 Марина Concepcion Start : 30-Aug-2014 End : 11-Feb-2015 Discontinued Comments:th[age], called to [facility] 08-30-14 erussell Allergies and Adverse Reactions [...] Meningioma (Renamed from ABNRM RESULT, FUNCTION STUDY, BRAIN/BUSINESS SERVICES ANALYST NEC) (794.09) Comments: had spell transient didnt know where was- want to rescan brain mmse 30/30-- but have to see what creatinine going [...] 2010- left. 2016 right Cholecystectomy Completed lumbar nvzsvu==0818 Completed Tonsillectomy Completed Date Value Details 19-Dec-2017 Echocardiogram Complete Result: Comments: See Note; NOTES: [facility] Cardiovascular Services [address] [place] [address] Echo Complete 12/19/17 0800 MR#: [id number] Acct: [id number] Name: CLARENCE ALBERT ep #: [id number] : 1940 77 From: Chuckie Cormier MD Attending Dr: Chaparrita Albrecht DO Status: REG CLI Ordering Dr: Chaparrita Albrecht DO Date: 12/19/17 Location: [facility] Sex: F C Admitted: Reason For Study: [...] Dictated: 12/19/17 0800 Date Transcribed: 12/19/17 1022 Logistics Analytics Manager: Signed 07-Dec-2017 Carotid Duplex Ultrasound Result: Comments: See Note; NOTES: [facility] Cardiovascular Services [address] [place] [address] Carotid Duplex Ultrasound 12/06/17 0901 MR#: [id number] Acct: [id number] Name: CLARENCE WHITTINGTON Rep #: [id number] : 1940 77 From: Anurag Loya MD [...] the left vertebral artery. Procedure Carotid Duplex 40435. Exam performed in department. Interpretation Summary Mild (<50%) stenosis right extracranial internal carotid. Mild (<50%) stenosis left extracranial internal carotid. Flow within the vertebral arteries is antegrade bilaterally. __ __ Ordering Physician: Chaparrita Albrecht Performed By: Margot Benton RVT and Student 12/07/17 0809 Date Anurag Loya MD CC: Chaparrita Alrbecht DO Date Dictated: 12/06/17900 Date Transcribed: 12/07/17808 Logistics Analytics Manager: Signed 06-Dec-2017 SCREENING MAMM (CAD), BILAT Result: Comments: See Note; NOTES: [facility] Imaging Services [address] [place] [address] SCREENING MAMM (CAD), BILAT MR#: [id number] Acct: [id number] Name: CLARENCE ALBERT Rep #: [id number] : 1940 F 77 From: Misael Hebert MD PCP: Chaparrita Albrecht DO Status: REG CLI Study: SCREENING MAMM (CAD), BILAT Date of Exam: 12/06/17 Exam# [id number] Ordering Dr: Chaparrita Albrecht DO MAMM OGRAPHY [...] delay biopsy of a clinically suspicious abnormality. [id number] Electronically Signed: Misael Hebert MD at 15:31 EDT Tel [phone], rvice support , CC: Chaparrita Albrecht DO Logistics Analytics Manager: Signed 10-Jun-2017 Brain W/WO Contrast Result: Comments: See Note; NOTES: [facility] Imaging Services [address] [place] [address] Brain W/WO Contrast MR#: [id number] Acct: [id number] Name: CLARENCE ALBERT Rep #: [id number] : 1940 F 77 From: Laya Montilla MD PCP: Chaparrita Albrecht DO Status: REG CLI Study: Brain W/WO Contrast Date of Exam: 06/10/17 Exam# [id number] Ordering Dr: Chaparrita Albrecht DO STUDY: MRI [...] Service support , CC: Chaparrita Albrecht DO Logistics Analytics Manager: Signed 05-May-2017 Chest PA and Lateral Result: Comments: See Note; NOTES: [facility] Imaging Services [address] [place] [address] Chest PA and Lateral MR#: [id number] Acct: [id number] Name: CLARENCE ALBERT Rep #: [id number] : 1940 F 77 From: Edwar Patino MD PCP: Chaparrita Albrecht DO Status: REG CLI Study: Chest PA and Lateral Date of Exam: 05/05/17 Exam# [id number] Ordering Dr: Keri Singh MD STUDY: X-RAY [...] CC: Keri Singh MD; Chaparrita Albrecht DO Logistics Analytics Manager: Signed 02-Nov-2016 Dexa Bone Density Study (HP) Result: Comments: See Note; NOTES: [facility] Imaging Services [address] [place] [address] Verdana 4d Dexa Bone Density Study (HP) MR#: [id number] Acct: [id number] Name: LYNNE ALBERT Rep #: [id number] : 1940 F 76 From: Misael Hebert MD PCP: Chaparrita Albrecht DO Status: REG CLI Study: Dexa Bone Density Study () Date of Exam: 11/02/16 Exam# [id number] Ordering Dr: Laura DO STUDY: DUAL ENERGY [...] of 1.8%. 0002 HPBD/Dexa Bone Density Study () IMPRESSION: The patient is considered osteopenic as [...] Misael Hebert MD at 11:02 EDT Tel [phone], Service support , CC: Chaparrita Albrecht DO Logistics Analytics Manager: Signed 02-Nov-2016 SCREENING MAMM (CAD), BILAT Result: Comments: See Note; NOTES: [facility] Imaging Services [address] [place] [address] Verdana 4d SCREENING MAMM (CAD), BILAT MR#: [id number] Acct: [id number] Name: CLARENCE ALBERT Rep #: [id number] : 1940 F 76 From: Misael Hebert MD PCP: Chaparrita Albrecht DO Status: [facility] CLI Study: SCREENING MAMM (CAD), BILAT Date of Exam: 11/02/16 Exam# [id number] Ordering Dr: Case Albrecht DO MAMMOGRAPHY - [...] delay biopsy of a clinically suspicious abnormality. [id number] Electronically Signed: Misael Hebert MD at 12:44 EDT Tel [phone], Service support , CC: Chaparrita Albrecht DO Logistics Analytics Manager: Signed 05-Aug-2016 Venous Duplex Lower Extremity Result: Comments: See Note; NOTES: [facility] Cardiovascular Services [address] [place] [address] Venous Duplex US, Unilateral 08/05/16 1053 MR#: [id number] Acct: [id number] Name: CLARENCE WEI Rep #: [id number] : 1940 76 From: Elvin Natarajan MD [...] Dictated: 08/05/16 1053 Date Transcribed: 08/05/16 1127 Logistics Analytics Manager: Signed 27-May-2016 Knee 4 or More Views Result: Comments: See Note; NOTES: [facility] Imaging Services [address] [place] [address] Verdana 4d Knee 4 or More Views MR#: [id number] Acct: [id number] Name: CLARENCE ALBERT Rep #: [id number] : 1940 F 76 From: Misael Hebert MD PCP: Chaparrita Albrecht DO Status: REG CLI Study: Knee 4 or More Views Date of Exam: 05/27/16 Exam# [id number] Ordering Dr: Kylah Linda UDY: X-RAY - [...] MD at 10:41 EST , Service support [phone], CC: Chaparrita Albrecht DO; Kylah Linda DO Logistics Analytics Manager: Signed 13-May-2016 Sinus/Facial Bone Result: Comments: See Note; NOTES: [facility] Imaging Services [address] [place] [address] Verdana 4d Sinus/Facial Bone MR#: [id number] Acct: [id number] Name: ALBERTCLARENCE J Rep #: [id number] : 1940 F 76 From: Godwin Winter MD PCP: Chaparrita Albrecht DO Status: REG CLI Study: Sinus/Facial Bone Date of Exam: 05/13/16 Exam# [id number] Ordering Dr: Alejandro Silverman MD STUDY: CT [...] MD at 7:35 EST , Service support [phone], CC: Chaparrita Albrecht DO; Alejandro Silverman MD Logistics Analytics Manager: Signed 21-Apr-2016 Emergency Department Summary Result: Comments: See Note; NOTES: [facility] Medical Records Department [address] [place] [address] Emergency Department Summary MR#: [id number] Acct: [id number] Name: CLARENCE ALBERT Rep #: [id number] : 1940 76 From: Carissa Murphy MD [...] epistaxis. CARISSA MURPHY MD T: NTS JOB: [id number] 04/21/16805 <Electronically signed by Carissa Murphy MD> Date Carissa donovan MD Cosigner Signature (If Indicated): Date CC: Chaparrita Albrecht DO Date Dictated: 04/20/161711 Date Transcribed: 04/20/161711 Logistics Analytics Manager: Signed 20-Apr-2016 Discharge Instruction Result: Comments: See Note; NOTES: [facility] Medical Records Department [address] [place] [address] Discharge Instruction 04/20/16 1303 MR#: [id number] Acct: [id number] Name: CLARENCE ALBERT Rep #: [id number] : 1940 76 From: Carissa Murphy MD PCP: Chaparrita Albrecht DO Status: [facility] ER ED Disposition - Plan for ED [...] your Primary Care Provider. Call [facility] ([phone]) or report to the closest Emergency Room. Call 911 if necessary. 04/20/16 9555 <Electronically signed by Carissa Murphy MD> Date Carissa Murphy MD Cosigner Signature (If I ndicated): Date CC: Chaparrita Albrecht DO 02-Nov-2015 Carotid Duplex Ultrasound Result: Comments: See Note; NOTES: [facility] Cardiovascular Services [address] [place] [address] Carotid Duplex Ultrasound 10/30/15 1100 MR#: [id number] Acct: [id number] Name: CLARENCE ALBERT Rep #: [id number] : 1940 75 From: Elvin Natarajan MD Attending Dr: Chaparrita Albrecht DO Status: REG CLI Ordering Dr: Chaparrita Albrecht DO Date: 10/30/15 Location: [facility] Sex: F C Adm itted: Reason For [...] the left vertebral artery. Procedure Carotid Duplex 33831. The exam was diagnostic. Exam performed in [...] Dictated: 10/30/15 1100 Date Transcribed: 11/02/15 1143 Logistics Analytics Manager: Signed 30-Oct-2015 Bilat Scrn Digital AND CAD Result: Comments: See Note; NOTES: [facility] Imaging Services [address] [place] [address] Verdana 4d Bilat Scrn Digital AND CAD MR#: [id number] Acct: [id number] Name: CLARENCE ALBERT Rep #: [id number] : 1940 F 75 From: Andres Brady MD PCP: Chaparrita Albrecht DO Status: REG CLI Study: Saad Jaffe Digital AND CAD Date of Exam: 10/30/15 Exam# [id number] Ordering Dr: Chaparrita Albrecht DO MAMMOGRAPHY - [...] No other significant abnormalities are identified. HPBI/Saad Herreran Digi claudia AND CAD IMPRESSION: Stable bilateral screening mammogram. Yearly follow- up mammogram recommended. (A) ASSESSMENT CATEGORY: BIRADS Category 2: Benign. A le tter regarding these results will be sent to the patient by the facility within 30 days. Approximately 10% of breast cancers are not detected by mammography. A normal mammogram should not delay biop sy of a clinically suspicious abnormality. [id number] Electronically Signed: Andres Brady MD at 17:48 EDT Tel , Service support [phone], CC: Chaparrita Albrecht DO Logistics Analytics Manager: Signed 30-Oct-2015 Bilat Scrn Digital AND CAD Result: Comments: See Note; NOTES: [facility] Imaging Services [address] [place] [address] Verdana 4d Bilat Scrn Digital AND CAD MR#: [id number] Acct: [id number] Name: CLARENCE ALBERT Rep #: [id number] : 1940 F 75 From: Andres Brady MD PCP: Chaparrita Albrecht DO Status: REG CLI Study: Bilat Scrn Digital AND CAD Date of Exam: 10/30/15 Exam# [id number] Ordering Dr: Chaparrita Albrecht DO MAMMOGRAPHY - [...] abnormalities are identified. CC: Chaparrita Albrecht DO Logistics Analytics Manager: Signed 22-Oct-2015 ELECTROCARDIOGRAM, COMPLETE (ECG) (66457) Comments: ekg showed normal sinus rhythym, normal axis, no acute st/t wave changes no change Result: [MEASUREMENTS ANALYSIS] Date of Test: 10/22/2015 14:41:29; Heart Rate: 71; MD Interval: 140; QRS: 94; QT Interval: 384; Corrected QT Interval (QTc): 403; P Wave Hannah: 58; QRS Wave Hannah: -3; T Wave Hannah: 56; Blood Pressure: 128/76 [ECG DIAGNOSTIC STATEMENTS] Date of Test: 10/22/2015 14:41:29; Summary: Sinus Rhythm Low voltage -possible pulmonary disease. ABNORMAL 22-Jul-2015 Kidney and Bladder Result: Comments: See Note; NOTES: [facility] Imaging Services [address] [place] [address] Verdana 4d Kidney and Bladder MR#: [id number] Acct: [id number] Name: Yaniv ALBERT Rep #: [id number] : 1940 F 75 From: Nir Sanchez MD PCP: Chaparrita Albrecht DO Status: REG CLI Study: Kidney and Bladder Date of Exam: 07/22/15 Exam# [id number] Ordering Dr: Chaparrita Albrecht DO STUDY: RENAL [...] at 4:59 EDT Tel , Service support [phone], CC: Chaparrita Albrecht DO Logistics Analytics Manager: Signed 11-Mar-2015 Knee 4 or More Views Result: Comments: See Note; NOTES: [facility] Imaging Services [address] [place] [address] Verdana 4d Knee 4 or More Views MR#: [id number] Acct: [id number] Name: CLARENCE ALBERT Rep #: [id number] : 1940 F 74 From: Trent Cameron DO PCP: Chaparrita Albrecht DO Status: REG CLI Study: Knee 4 or More Views Date of Exam: 03/11/15 Exam# [id number] Ordering Dr: Case Albrecht DO STUDY: X-RAY [...] at 7:45 EST Tel , Service support [phone], RAD/Knee 4 or More Views IMPRESSION: Degener ative changes within the knee. No acute fracture. Small suprapatellar effusion. Electronically Signed: Trent Cameron DO at 7:45 EST Tel , Service support [phone], CC: Chaparrita Albrecht DO Logistics Analytics Manager: Signed 11-Mar-2015 Knee 4 or More Views Result: Comments: See Note; NOTES: [facility] Imaging Services [address] [place] [address] Verdana 4d Knee 4 or More Views MR#: [id number] Acct: [id number] Name: BETY CLARENCE Nazia Rep #: [id number] : 1940 F 74 From: Trent Cameron DO PCP: Chaparrita Albrecht DO Status: REG CLI Study: Knee 4 or More Views Date of Exam: 03/11/15 Exam# [id number] Ordering Dr: Case Albrecht DO STUDY: X-RAY [...] at 7:46 EST Tel , Service support [phone], RAD/Knee 4 or More Views IMPRESSION: Mild degenerative changes. No acute bony abnormality. Electronically Signed: Trent Cameron DO at 7:46 EST Tel , Service support [phone], CC: Chaparrita Albrecht DO Logistics Analytics Manager: Signed 18-Oct-2014 Carotid Duplex Ultrasound Result: Comments: See Note; NOTES: [facility] Cardiovascular Services [address] [place] [address] Carotid Duplex Ultrasound 10/18/14 1331 MR#: [id number] Acct: [id number] Na me: CLARENCE ALBERT Rep #: [id number] : 1940 74 From: Elvin Natarajan MD [...] the left vertebral artery. Procedure Carotid Duplex 02576. The exam was diagnostic. Exam performed in [...] Dictated: 10/18/14 1331 Date Transcribed: 10/18/14 1616 Logistics Analytics Manager: Signed 18-Oct-2014 Bilat Scrn Digital AND CAD Result: Comments: See Note; NOTES: [facility] Imaging Services [address] [place] [address] Breast Imaging Report MR#: [id number] Acct: [id number] Name: CLARENCE ALBERT Rep #: [id number] : 1940 F 74 From: Misael Hebert MD PCP: Chaparrita Albrecht DO Status: REG CLI Study: Saad Jaffe Digital AND CAD Date of Exam: 10/18/14 Exam# [id number] Ordering Dr: Chaparrita Albrecht DO MAMMOGRAPHY - [...] Misael redmond MD at 13:44 EDT Tel [phone], Service support [phone], CC: Chaparrita Albrecht DO Logistics Analytics Manager: Signed 09-Jul-2014 Dexa Bone Density Study (HP) Result: Comments: See Note; NOTES: [facility] Imaging Services [address] [place] [address] Bone Density Report MR#: [id number] Acct: [id number] Name: CLARENCE ALBERT Rep #: [id number] : 1940 F 74 From: Misael Hebert MD PCP: Chaparrita Albrecht DO Status: REG CLI Study: Dexa Bone Density Study (HP) Date of Exam: 07/09/14 Exam# [id number] Ordering Dr: Chaparrita Albrecht DO STUDY: DUAL [...] Angel Hebert MD at 14:55 EDT Tel [phone], Service support [phone], CC: Chaparrita Albrecht DO Logistics Analytics Manager: Signed 17-Sep-2013 Chest PA and Lateral Result: Comments: See Note; NOTES: [facility] Imaging Services [address] [place] [address] Radiology Report MR#: [id number] Acct: [id number] Name: CLARENCE ALBERT Rep #: [id number] : 1940 F 73 From: David Bennett MD PCP: Chaparrita Albrecht DO Status: REG CLI Study: Chest PA and Lateral Date of Exam: 09/17/13 Exam# [id number] Ordering Dr: Chaparrita Albrecht DO STUDY: X-RAY [...] MD at 20:44 EDT , Service support [phone], RAD/Chest PA and Lateral IMPRESSION: No focal infiltrate or edema. Electronic ally Signed: David Bennett MD at 20:44 EDT , Service support [phone], CC: Chaparrita Albrecht DO Logistics Analytics Manager: Signed 17-Sep-2013 Spirometry (75953) Result: 29-Aug-2013 Carotid Duplex Ultrasound Result: Comments: See Note; NOTES: [facility] Cardiovascular Services [address] [place] [address] Carotid Duplex Ultrasound 08/24/13 0939 MR#: [id number] Acct: [id number] Nam e: CLARENCE ALBERT Rep #: [id number] : 1940 73 From: Anurag Loya MD Attending Dr: Chaparrita Albrecht DO Status: REG CLI Ordering Dr: Chaparrita Albrecht DO Date: 08/24/13 Location: [facility] Sex: F C Admitted: Rt. Velocities/BP Lt. [...] in the left bulb. Procedure Carotid Duplex 17544. Exam perfor med in department. Interpretation Summary Mild (<50%) stenosis right extracranial internal carotid. Mild (<50%) stenosis left extracranial internal carotid. Flow within the vertebra l arteries is antegrade bilaterally. Ordering Physician: Chaparrita Albrecht Performed By: Kendal Benton RVT : Chaparrita Albrecht DO Date Dictated: 08/24/13 0939 Date Transcribed: 08/29/13 1118 Logistics Analytics Manager: Signed Immunization Name Dates Details Influenza (3 years and up) on: 16-Jan-2008 Comments: Lot #: [id number] date: 09/10Amount given: 0.5 mlRoute: IMSite given: Left deltoidGiven by: Olivia Bell LPN Influenza (3 years and up) on: 09-Jan-2009 Comments: Lot #[id number]-left deltoidDose0.5mlgiven by Marycarmen Jorge LPN Pneumococcal (2 years and up) on: 29-Aug-2007 Comments: 0.5cc given im lt arm [id number] exp 02-13-08 Family History Unknown Family Member [...] smoker Vital Signs Date Test Result Details :03 Temperature 97.9 f Comments: Method: Temporal [...] Description Value Details :24 HgA1C , Office (72899) HgA1C , Office 6.5 % (Normal) Range: 4.6 - 7.1 :14 LIPID PANEL (25682) Comments: PATIENT WAS FASTINGPERFORMED BY: [employer] [place] [id number] LDL/HDL Ratio 1.1 {ratio} (Normal) Range: 0.0-3.2 [...] (Normal) Range: 100-199 :14 Vitamin D Hydroxy (32418) Comments: PATIENT WAS FASTINGPERFORMED BY: [employer] [place] [id number] Vitamin D, 25-Hydroxy 37.8 ng/mL (Normal) Range: 30.0-100.0 Comments: Vitamin D deficiency has been defined by the Guild ofMedicine and an Endocrine Society practice guideline as alevel of serum 25-OH vitamin D less than 20 ng/mL (1,2).The Endocrine Society went on to further define vitamin Dinsufficiency as a level between 21 and 29 ng/mL (2).1. IOM (Guild of Medicine). 2010. Dietary reference intakes for calcium and D. [place]: The National Academies Press.2. Mira MF, Rosette LOPEZ, Tommy SWAIN, et al. Evaluation, treatment, and prevention of vitamin D deficiency: an Endocrine Society clinical practice guideline. JCEM. 2010; 96(7):1911-30. 5-Dec-20179:14 CBC with auto diff (07685) Comments: PATIENT WAS FASTINGPERFORMED BY: LabCoPalisades Medical CenterGgponb0677 [facility] [id number] Immature Grans (Abs) 0.0 {x10E3/uL} (Normal) Range: [...] PANEL, COMPREHENSIVE Comments: PATIENT WAS FASTINGPERFORMED BY: Toto CommunicationsPalisades Medical CenterNmtmqk5067 [facility] [id number] (21317) ALT (SGPT) 10 [iU]/L (Normal) Range: 0-32 [...] 8-27 Glucose 142 mg/dL (Abnormal) Range: 65-99 30-Wwf-93528:40 MICROALBUMIN: CREATININE RATIO Comments: PATIENT WAS FASTINGPERFORMED BY: Toto CommunicationsPalisades Medical CenterTnlwti0837 [facility] [id number] (89655) AND (81951) Alb/Creat Ratio 4213.3 {mg/g_creat} (Abnormal) Range: 0.0-30.0 Albumin, Urine 3206.3 ug/mL (Normal) Comments: Results confirmed ondilution. Creatinine, Urine 76.1 mg/dL (Normal) :40 CBC & PLATELETS (AUTO) (29832) Comments: please fax to Dr. Austin- [phone]; PATIENT WAS FASTINGPERFORMED BY: [place] CommunicationsBr[place]any [place] 3117170 [facility] [id number] Platelets 148 {x10E3/uL} (Abnormal) Range: 150-379 RDW 14.8 % (Normal) Range: 12.3-15.4 MCHC 33.6 g/dL (Normal) Range: 31.5-35.7 MCH 29.7 pg (Normal) Range: 26.6-33.0 MCV 89 fL (Normal) Range: 79-97 Hematocrit 36.9 % (Normal) Range: 34.0-46.6 Hemoglobin 12.4 g/dL (Normal) Range: 11.1-15.9 RBC 4.17 {x10E6/uL} (Normal) Range: 3.77-5.28 WBC 4.7 {x10E3/uL} (Normal) Range: 3.4-10.8 52-Tiz-84986:40 RENAL FUNCTION PANEL Comments: please fax to Dr. Austin- [phone]; PATIENT WAS FASTINGPERFORMED BY: Toto CommunicationsPalisades Medical CenterYozwec7001 [facility] [id number] Information: [id number] FX DR. SANTANA (97006) Albumin 3.1 g/dL (Abnormal) Range: 3.5-4.8 Phosphorus [...] 133 mg/dL (Abnormal) Range: 65-99 :40 MAGNESIUM (31182) Comments: please fax to Dr. Austin- [phone]; PATIENT WAS FASTINGPERFORMED BY: [facility] Uayxgr5204 [address] RoadDublin [place] [id number] Magnesium 1.9 mg/dL (Normal) Range: 1.6-2.3 :40 CALCIFEDIOL (98718) Comments: please fax to Dr. Austin- [phone]; PATIENT WAS FASTINGPERFORMED BY: [facility] Hieojd4[address] RoadDublin [place] [id number] Vitamin D, 25-Hydroxy 29.4 ng/mL (Abnormal) Range: 30.0-100.0 Comments: Vitamin D deficiency has been defined by the Guild ofUniversity Hospitals Cleveland Medical Centercine and an Endocrine Society practice guideline as alevel of serum 25-OH vitamin D less than 20 ng/mL (1,2).The Endocrine Society went on to further define vitamin Dinsufficiency as a level between 21 and 29 ng/mL (2).1. IOM (Guild of Medicine). 2010. Dietary reference intakes for calcium and D. [place]: The National Academies Press.2. Mira MF, Rosette NC, Tommy SWAIN, et al. Evaluation, treatment, and prevention of vitamin D deficiency: an Endocrine Society clinical practice guideline. JCEM. 2010; 96(7):1911-30. :40 PARATHORMONE (69623) Comments: please fax to Dr. Austin- [phone]; PATIENT WAS FASTINGPERFORMED BY: [facility] Qttuos0[address] RoadDublin [place] [id number] PTH, Intact 22 pg/mL (Normal) Range: 15-65 46-Ina-51628:30 COLON BIOPSY (CHOOSE See Note (Normal) Comments: [facility] [address] [place], [place], [id number] SITE) Comments: Patient: CLARENCE ALBERT : 1940 (77/F) Acct Num: [id number] Phys: Marcus Caldera Unit Num: [id number] Loc: LABSPEC Specimen: [id number] Received: 09/16/171528 Spec Type: Kendal MAURER TISSUES [...] one cassette. / MARCY:dustin 09/19/17 TC:1 CPT: 91399 x2 HEADER OPERATION: Colonoscopy PRE-OP DIAGNOSIS: History of polyps TISSUE SUBMITTED: A Proximal sigmoid polyp, rule out adenoma, B Transversecolon, rule out adenoma MICROSCOPIC DESCRIPTION Slides are reviewed. M ICROSCOPIC DIAGNOSIS A. Proximal sigmoid polyp, biopsy: Fragments of tubular adenoma. B. Transverse colon polyp, biopsy: Fragments of tubular adenoma. SJ:dustin 09/20/17 Signed _ Nacho Ardon 09/20/17 <signature on file> 67-Mmx-60938:24 METABOLIC PANEL, COMPREHENSIVE Comments: PATIENT NOT FASTINGPERFORMED BY: LabCoPalisades Medical CenterPbjyua8617 [facility] [id number] (98117) ALT (SGPT) 14 [iU]/L (Normal) Range: 0-32 [...] (Abnormal) Range: 65-99 :07 HgA1C , Office (04430) HgA1C , Office 7.2 % (Abnormal) Range: 4.6 - 7.1 :37 Clostridium difficile Toxin Comments: PATIENT NOT FASTINGPERFORMED BY: Dress CodeUniversity Of [facility] Health–West6370 [facility] [id number] A+B, EIA (65582) C difficile Toxins A+B, EIA Negative (Normal) :37 LEUKOCYTE COUNT, FECAL (75969) Comments: PATIENT NOT FASTINGPERFORMED BY: Dress CodeUniversity Of Michigan Health–West6370 [facility] [id number] Result 1 NWBC (Normal) Comments: No white blood cells seen. White Blood Cells (WBC), Final report (Normal) Stool :37 OVA & PARASITE DIR SMEAR Comments: PATIENT NOT FASTINGPERFORMED BY: Dress CodeUniversity Of Michigan Health–West6370 [facility] [id number] (26835) Result 1 NOCP (Normal) Comments: No ova, cysts, or parasites seen. Ova + Parasite Exam Final report (Normal) Comments: These results were obtained using wet preparation(s) and trichromestained smear. This test does not include testing for Cryptosporidiumparvum, Cyclospora, or Microsporidia. :37 SETH CULTURE-STOOL (01777) Comments: PATIENT NOT FASTINGPERFORMED BY: [employer] Ilthmg8580 [facility] [id number] Information: SRC:ST SRC:ST E coli Shiga Toxin EIA Negative (Normal) Result 1 NCI (Normal) Comments: No Campylobacter species isolated. Campylobacter Culture Final report (Normal) Result 1 NSS (Normal) Comments: No Salmonella or Shigella recovered. Salmonella/Shigella Screen Final report (Normal) :06 Renal function Panel Comments: fax copy to Dr. Santana [phone]; A courtesy copy of this report has been sent [phone].PATIENT NOT FASTINGPERFORMED BY: [employer] Enmaji7462 [facility] [id number] Information: NURSE DRAW (66316) Albumin 3.5 g/dL (Normal) Range: 3.5-4.8 Phosphorus [...] copy of this report has been sent [phone].PATIENT NOT FASTINGPERFORMED BY: [employer] Zpdiqv1994 [facility] [id number] :02 Range: 15-65 Vitamin D, 25-Hydroxy 34.7 ng/mL (Normal) Comments: A courtesy copy of this report has been sent [phone].PATIENT NOT FASTINGPERFORMED BY: [employer] Jiqhup5870 [facility] [id number] :02 Range: 30.0-100.0 Comments: Vitamin D deficiency has been defined by the Guild ofMedicine and an Endocrine Society practice guideline as alevel of serum 25-OH vitamin D less than 20 ng/mL (1,2).The Endocrine Society went on to further define vitamin Dinsufficiency as a level between 21 and 29 ng/mL (2).1. IOM (Guild of Medicine). 2010. Dietary reference intakes for calcium and D. [place]: The National Academies Press.2. Mira MF, Rosette NC, Tommy SWAIN, et al. Evaluation, treatment, and prevention of vitamin D deficiency: an Endocrine Society clinical practice guideline. JCEM. 2010; 96(7):1911-30. 6-Pez-840635:02 MICROALBUMIN: CREATININE RATIO Comments: send results to Dr. Santana fax: [phone]; A courtesy copy of this report has been sent [phone].PATIENT NOT FASTINGPERFORMED BY: [employer] Erhxve[address] [facility] [id number] (22192) AND (88021) Alb/Creat Ratio 4191.2 {mg/g_creat} (Abnormal) Range: 0.0-30.0 Albumin, Urine 2380.6 ug/mL (Normal) Comments: Results confirmed ondilution. Creatinine, Urine 56.8 mg/dL (Normal) :02 CBC, PLATELETS & MANUAL Comments: send results to Dr. Santana fax: [phone]; A courtesy copy of this report has been sent [phone].PATIENT NOT FASTINGPERFORMED BY: [employer] Urgpja4243 [facility] [id number] Information: VIT D25, PTH DIFF (24447) Immature Grans (Abs) 0.0 {x10E3/uL} (Normal) Range: [...] 3.77-5.28 WBC 5.4 {x10E3/uL} (Normal) Range: 3.4-10.8 2-Mjz-154097:02 MAGNESIUM (65396) Comments: send results to Dr. Santana fax: [phone]; A courtesy copy of this report has been sent [phone].PATIENT NOT FASTINGPERFORMED BY: LabCoPalisades Medical CenterRarlga1385 [facility] [id number] Magnesium, Serum 1.8 mg/dL (Normal) Range: 1.6-2.3 4-Gek-531782:02 RENAL FUNCTION PANEL (05160) Comments: send results to Dr. Santana fax: [phone]; A courtesy copy of this report has been sent [phone].PATIENT NOT FASTINGPERFORMED BY: [employer] Ccffpk6630 [facility] [id number] Albumin, Serum 3.7 g/dL (Normal) Range: 3.5-4.8 [...] Glucose, Serum 119 mg/dL (Abnormal) Range: 65-99 1-Jzl-252057:07 LIPID PANEL (47056) Comments: PATIENT WAS FASTINGPERFORMED BY: Toto CommunicationsPalisades Medical CenterYeghib6706 [facility] [id number] LDL/HDL Ratio 1.4 {ratio} (Normal) Range: 0.0-3.2 Comments: LDL/HDL Ratio Men Women 1/2 Avg.Risk 1.0 1.5 Av g.Risk 3.6 3.2 2X Avg.Risk 6.2 5.0 3X Avg.Risk 8.0 6.1 LDL Cholesterol Calc 102 mg/dL (Abnormal) Range: 0-99 VLDL Cholesterol Cesar 17 mg/dL (Normal) Range: 5-40 HDL Cholesterol 75 mg/dL (Normal) Triglycerides 84 mg/dL (Normal) Range: 0-149 Cholesterol, Total 194 mg/dL (Normal) Range: 100-199 9-Lea-307851:07 CBC W/AUTO DIFF WBC (94881) Comments: PATIENT WAS FASTINGPERFORMED BY: LabCoPalisades Medical CenterPdvbft7887 [facility] [id number] Immature Grans (Abs) 0.0 {x10E3/uL} (Normal) Range: [...] 3.77-5.28 WBC 4.8 {x10E3/uL} (Normal) Range: 3.4-10.8 6-Zyn-515625:07 METABOLIC PANEL, COMPREHENSIVE Comments: PATIENT WAS FASTINGPERFORMED BY: LabCoPalisades Medical CenterQumsnh2723 [facility] [id number] (63388) ALT (SGPT) 14 [iU]/L (Normal) Range: 0-32 [...] 8-27 Glucose 158 mg/dL (Abnormal) Range: 65-99 0-Mtv-705278:07 VITAMIN B-12 (CYANOCOBALAMIN) Comments: PATIENT WAS FASTINGPERFORMED BY: [facility] Ydhqjo7131 [facility] [id number] (89073) Vitamin B12 771 pg/mL (Normal) Range: 232-1245 13-May-20170:00 CDIFF (Molecular) Comments: [facility] [address] [place], [place], [address] CDIFF See Note (Normal) Comments: Cdiff-MolecularNormal Reference Range = Negative C. Diff DNA Negative- No toxigenic C. Diff DNA DetectedNAAT METHOD Testing was performed using nucleic acid amplification 05-May-20179:32 Rapid Flu (61583 x 2) Influenza A Ag Negative (Normal) :35 CBC with auto diff (60124) Comments: PATIENT WAS FASTINGPERFORMED BY: Toto CommunicationsPalisades Medical CenterWsnaxw5132 [facility] [id number] Immature Grans (Abs) 0.0 {x10E3/uL} (Normal) Range: [...] PANEL, COMPREHENSIVE Comments: PATIENT WAS FASTINGPERFORMED BY: Toto CommunicationsPalisades Medical CenterIfqgvq8561 [facility] [id number] (67497) ALT (SGPT) 16 [iU]/L (Normal) Range: 0-32 [...] Glucose, Serum 145 mg/dL (Abnormal) Range: 65-99 66-Zse-464265:51 HgA1C , Office (06689) HgA1C , Office 6.7 % (Normal) Range: 4.6 - 7.1 0-Oyp-444589:50 CALCIFEDIOL (71214) Comments: A courtesy copy of this report has been sent [phone].PATIENT WAS FASTINGPERFORMED BY: LabUniversity Of [facility] Health–West6370 [facility] [id number] Vitamin D, 25-Hydroxy 40.7 ng/mL (Normal) Range: 30.0-100.0 Comments: Vitamin D deficiency has been defined by the Guild ofMedicine and an Endocrine Society practice guideline as alevel of serum 25-OH vitamin D less than 20 ng/mL (1,2).The Endocrine Society went on to further define vitamin Dinsufficiency as a level between 21 and 29 ng/mL (2).1. IOM (Guild of Medicine). 2010. Dietary reference intakes for calcium and D. [place]: The National Academies Press.2. Mira MF, Rosette LOPEZ, Tommy SWAIN, et al. Evaluation, treatment, and prevention of vitamin D deficiency: an Endocrine Society clinical practice guideline. JCEM. 2010; 96(7):1911-30. 3-Nld-810888:50 PTH (PARATHORMONE) (02648) Comments: A courtesy copy of this report has been sent [phone].PATIENT WAS FASTINGPERFORMED BY: [employer] [place] [id number] PTH, Intact 20 pg/mL (Normal) Range: 15-65 5-Dyn-095918:50 MICROALBUMIN: CREATININE RATIO Comments: A courtesy copy of this report has been sent [phone].PATIENT WAS FASTINGPERFORMED BY: [employer]70 [employer] [place] [id number] (77751) AND (40001) Microalb/Creat Ratio 4376.0 {mg/g_creat} (Abnormal) Range: 0.0-30.0 Microalbumin, Urine 3369.5 ug/mL (Normal) Comments: Results confirmed ondilution. Creatinine, Urine 77.0 mg/dL (Normal) 2-Eys-492172:50 Renal function Panel Comments: A courtesy copy of this report has been sent [phone].PATIENT WAS FASTINGPERFORMED BY: Arkami6370 [facility]Care[facility] [id number] Information: FX DR. SANTANA [phone] (02222) Albumin, Serum 3.8 g/dL (Normal) Range: 3.5-4.8 [...] Glucose, Serum 203 mg/dL (Abnormal) Range: 65-99 0-Mal-150617:50 Magnesium (92381) Comments: A courtesy copy of this report has been sent [phone].PATIENT WAS FASTINGPERFORMED BY: Escape DynamicsPalisades Medical CenterHzzqmh4641 [facility] [id number] Magnesium, Serum 1.8 mg/dL (Normal) Range: 1.6-2.3 :53 CBC with auto diff (94857) Comments: A courtesy copy of this report has been sent [phone].PATIENT WAS FASTINGPERFORMED BY: Escape DynamicsPalisades Medical CenterKktqsh5374 [facility] [id number] Immature Grans (Abs) 0.0 {x10E3/uL} (Normal) Range: [...] {x10E3/uL} (Normal) Range: 3.4-10.8 :53 LIPID PANEL (35730) Comments: A courtesy copy of this report has been sent [phone].PATIENT WAS FASTINGPERFORMED BY: Escape DynamicsPalisades Medical CenterPznbhs4693 [facility] [id number] LDL/HDL Ratio 1.2 {ratio_units} (Normal) Range: 0.0-3.2 [...] copy of this report has been sent [phone].PATIENT WAS FASTINGPERFORMED BY: Escape DynamicsPalisades Medical CenterZyiqrz1500 [facility] [id number] (40426) ALT (SGPT) 11 [iU]/L (Normal) Range: 0-32 [...] Glucose, Serum 205 mg/dL (Abnormal) Range: 65-99 11-Kog-345799:57 HgA1C , Office (29653) HgA1C , Office 7.1 % (Normal) Range: 4.6 - 7.1 :09 LIPID PANEL (85321) Comments: PATIENT WAS FASTINGPERFORMED BY: LabCoPalisades Medical CenterKfgdxu7855 [facility] [id number] LDL/HDL Ratio 1.3 {ratio_units} (Normal) Range: 0.0-3.2 [...] PANEL, COMPREHENSIVE Comments: PATIENT WAS FASTINGPERFORMED BY: LabCoPalisades Medical CenterYetytd6936 [facility] [id number] (26450) ALT (SGPT) 12 [iU]/L (Normal) Range: 0-32 [...] Glucose, Serum 152 mg/dL (Abnormal) Range: 65-99 6-Ysl-009949:50 HgA1C , Office (56999) HgA1C , Office 6.7 % (Normal) Range: 4.6 - 7.1 :25 Magnesium, Serum 1.9 mg/dL (Normal) Comments: PATIENT WAS FASTINGPERFORMED BY: LabCoPalisades Medical CenterVopmms5158 [facility] [id number] Range: 1.6-2.3 :25 Microalb/Creat Ratio, Randm Ur Comments: PATIENT WAS FASTINGPERFORMED BY: [employer] Fimfoz11[address]Dublin [place] [id number] Microalb/Creat Ratio 2652.0 {mg/g_creat} Range: 0.0-30.0 (Abnormal) Microalbumin, Urine 2482.3 ug/mL (Normal) Comments: Results confirmed ondilution. Creatinine, Urine 93.6 mg/dL (Normal) PTH, Intact 26 pg/mL (Normal) Comments: PATIENT WAS FASTINGPERFORMED BY: [facility] Qtxxra7806 [address] RoadDublin [place] [id number] :25 Range: 15-65 :25 Renal Panel (10) Comments: PATIENT WAS FASTINGPERFORMED BY: [employer] Aagwvm7173 [address] RoadDublin [place] [id number] Phosphorus, Serum 4.3 mg/dL (Normal) Range: 2.5-4.5 :25 Thyroxine (T4) Free, Direct, S Comments: PATIENT WAS FASTINGPERFORMED BY: Dress CodeSamaritan Hospital Airaxo7[address] RoadDublin [place] [id number] T4,Free(Direct) 1.08 ng/dL (Normal) Range: 0.82-1.77 : TSH 2.980 {uIU/mL} Comments: PATIENT WAS FASTINGPERFORMED BY: [employer] Iismzw4473 [address] RoadDublin [place] [id number] 25 (Normal) Range: 0.450-4.500 : Vitamin D, 25-Hydroxy 37.1 ng/mL (Normal) Comments: PATIENT WAS FASTINGPERFORMED BY: [facility] Itgsgo7593 [address] RoadDublin [place] [id number] 25 Range: 30.0-100.0 Comments: Vitamin D deficiency has been defined by the Guild ofMedicine and an Endocrine Society practice guideline as alevel of serum 25-OH vitamin D less than 20 ng/mL (1,2).The Endocrine Society went on to further define vitamin Dinsufficiency as a level between 21 and 29 ng/mL (2).1. IOM (Guild of Medicine). 2010. Dietary reference intakes for calcium and D. [place]: The National Academies Press.2. Mira MF, Rosette NC, Tommy SWAIN, et al. Evaluation, treatment, and prevention of vitamin D deficiency: an Endocrine Society clinical practice guideline. JCEM. 2010; 96(7):7581-30. :25 CBC W/AUTO DIFF WBC (05847) Comments: PATIENT WAS FASTINGPERFORMED BY: EVE LabUniversity Of Michigan Health–West6370 [facility] [id number] Immature Grans (Abs) 0.0 {x10E3/uL} (Normal) Range: [...] PANEL, COMPREHENSIVE Comments: PATIENT WAS FASTINGPERFORMED BY: Arkami6370 [facility] [id number]; non- emergent till apt (82137) ALT (SGPT) 10 [iU]/L (Normal) Range: 0-32 [...] mg/dL (Abnormal) Range: 65-99 03-Aug-20169:25 LIPID PANEL (15135) Comments: PATIENT WAS FASTINGPERFORMED BY: Toto CommunicationsPalisades Medical CenterEkhwsh2858 [facility] [id number] LDL/HDL Ratio 0.9 {ratio_units} (Normal) Range: 0.0-3.2 [...] (Normal) Range: 100-199 :54 HgA1C , Office (74467) HgA1C , Office 6.6 % (Normal) Range: 4.6 - 7.1 :1 Magnesium, Serum 2.1 mg/dL (Normal) Comments: PATIENT WAS FASTINGPERFORMED BY: [facility]CarePart[facility] [id number] 2 Range: 1.6-2.3 :12 Microalb/Creat Ratio, Randm Ur Comments: PATIENT WAS FASTINGPERFORMED BY: [facility]CarePart[facility] [id number] Microalb/Creat Ratio 1863.4 {mg/g_creat} (Abnormal) Range: 0.0-30.0 Microalbumin, Urine 1416.2 ug/mL (Normal) Comments: Results confirmed ondilution. Creatinine, Urine 76.0 mg/dL (Normal) :12 Microscopic Examination Comments: PATIENT WAS FASTINGPERFORMED BY: Arkami6370 Century Labsin [place] [id number] Bacteria None seen (Normal) Mucus Threads Present (Normal) Cast Type Hyaline casts (Normal) Casts Present {/lpf} (Abnormal) Epithelial Cells (non 0-10 {/hpf} Range: 0 - 10 renal) (Normal) RBC 3-10 {/hpf} Range: 0 - 2 (Abnormal) WBC 6-10 {/hpf} Range: 0 - 5 (Abnormal) PTH, Intact 36 pg/mL (Normal) Comments: PATIENT WAS FASTINGPERFORMED BY: Retrofitin [place] [id number] 0:12 Range: 15-65 Vitamin D, 25-Hydroxy 42.9 ng/mL (Normal) Comments: PATIENT WAS FASTINGPERFORMED BY: Arkami6370 [facility] [id number] 0:12 Range: 30.0-100.0 Comments: Vitamin D deficiency has been defined by the Guild ofMedicine and an Endocrine Society practice guideline as alevel of serum 25-OH vitamin D less than 20 ng/mL (1,2).The Endocrine Society went on to further define vitamin Dinsufficiency as a level between 21 and 29 ng/mL (2).1. IOM (Guild of Medicine). 2010. Dietary reference intakes for calcium and D. [place]: The National AcademGlobant Press.2. Mira MF, Rosette NC, Tommy SWAIN, et al. Evaluation, treatment, and prevention of vitamin D deficiency: an Endocrine Society clinical practice guideline. JCEM. 2010; 96(7):1911-30. 67-Blu-058184:12 URINALYSIS, W/ MICRO (79988) Comments: PATIENT WAS FASTINGPERFORMED BY: Arkami[address] [facility] HospitalOANDACarePartners Rehabilitation Hospital [id number] Microscopic Examination See below: (Normal) Comments: Microscopic was indicated and was performed. Nitrite, Urine Negative (Normal) Urobilinogen,Semi-Qn 0.2 mg/dL (Normal) Range: 0.2-1.0 Bilirubin Negative (Normal) Occult Blood Negative (Normal) Ketones Negative (Normal) Glucose Negative (Normal) Protein 4+ (Abnormal) WBC Esterase Trace (Abnormal) Appearance Clear (Normal) Urine-Color Yellow (Normal) pH 6.0 (Normal) Range: 5.0-7.5 Specific [place] 1.015 (Normal) Range: 1.005-1.030 82-Kce-793584:12 CBC W/AUTO DIFF WBC (87724) Comments: PATIENT WAS FASTINGPERFORMED BY: [employer] Auakyj4407 [facility] [id number] Immature Grans (Abs) 0.0 {x10E3/uL} (Normal) Range: [...] 3.77-5.28 WBC 6.2 {x10E3/uL} (Normal) Range: 3.4-10.8 60-Trl-843753:12 METABOLIC PANEL, COMPREHENSIVE Comments: PATIENT WAS FASTINGPERFORMED BY: LabCoPalisades Medical CenterFrwgbg6044 [facility] [id number] (30362) ALT (SGPT) 14 [iU]/L (Normal) Range: 0-32 [...] Glucose, Serum 154 mg/dL (Abnormal) Range: 65-99 26-Xny-420864:12 LIPID PANEL (56056) Comments: PATIENT WAS FASTINGPERFORMED BY: [employer] [facility] [id number] LDL/HDL Ratio 0.7 {ratio_units} (Normal) Range: 0.0-3.2 Comments: LDL/HDL Ratio Men Women 1/2 Avg.Risk 1.0 1.5 Av g.Risk 3.6 3.2 2X Avg.Risk 6.2 5.0 3X Avg.Risk 8.0 6.1 LDL Cholesterol Calc 49 mg/dL (Normal) Range: 0-99 VLDL Cholesterol Cesar 14 mg/dL (Normal) Range: 5-40 HDL Cholesterol 75 mg/dL (Normal) Triglycerides 68 mg/dL (Normal) Range: 0-149 Cholesterol, Total 138 mg/dL (Normal) Range: 100-199 24-Huw-725839:50 HgA1C , Office (89761) HgA1C , Office 6.7 % (Normal) Range: 4.6 - 7.1 08-Lie-913579:36 VITAMIN B-12 (CYANOCOBALAMIN) Comments: PATIENT WAS FASTINGPERFORMED BY: [employer] [facility] [id number] (78323) Vitamin B12 802 pg/mL (Normal) Range: 211-946 93-Fgp-143336:36 LIPID PANEL (57901) Comments: PATIENT WAS FASTINGPERFORMED BY: LabCoPalisades Medical CenterPoxwio2814 [facility] [id number] LDL/HDL Ratio 0.8 {ratio_units} (Normal) Range: 0.0-3.2 [...] Cholesterol, Total 161 mg/dL (Normal) Range: 100-199 80-Wtk-486829:36 LDH (LD) (LACTATE DEHYDROGENASE) Comments: PATIENT WAS FASTINGPERFORMED BY: Toto CommunicationsPalisades Medical CenterQpkmth8873 [facility] [id number] (79057) LDH 217 [iU]/L (Normal) Range: 119-226 46-Vce-523594:36 CBC W/AUTO DIFF WBC (85133) Comments: PATIENT WAS FASTINGPERFORMED BY: Toto CommunicationsPalisades Medical CenterCxpznm3065 [facility] [id number] Immature Grans (Abs) 0.0 {x10E3/uL} (Normal) Range: [...] 3.77-5.28 WBC 10.6 {x10E3/uL} (Normal) Range: 3.4-10.8 56-Syq-102164:36 METABOLIC PANEL, COMPREHENSIVE Comments: PATIENT WAS FASTINGPERFORMED BY: LabCoPalisades Medical CenterHvshjn1749 [facility] [id number] (24578) ALT (SGPT) 15 [iU]/L (Normal) Range: 0-32 [...] Glucose, Serum 137 mg/dL (Abnormal) Range: 65-99 40-Jhf-874987:36 TSH (85297) Comments: PATIENT WAS FASTINGPERFORMED BY: Arkami6370 [facility] [id number] TSH 0.560 {uIU/mL} (Normal) Range: 0.450-4.500 :02 Renal function Panel (87112) Comments: PATIENT WAS FASTINGPERFORMED BY: Arkami6370 [facility] [id number] Albumin, Serum 3.7 g/dL (Normal) Range: 3.5-4.8 [...] 137 mg/dL (Abnormal) Range: 65-99 :02 MAGNESIUM (88975) Comments: PATIENT WAS FASTINGPERFORMED BY: Dress CodeUniversity Of Michigan Health–West6370 [facility] [id number] Magnesium, Serum 2.2 mg/dL (Normal) Range: 1.6-2.3 :02 MICROALBUMIN: CREATININE RATIO Comments: PATIENT WAS FASTINGPERFORMED BY: LabUniversity Of Michigan Health–West6370 [facility] [id number] (72654) AND (15639) Microalb/Creat Ratio 2038.7 {mg/g_creat} (Abnormal) Range: 0.0-30.0 Microalbumin, Urine 1223.2 ug/mL (Normal) Comments: Results confirmed ondilution. Creatinine, Urine 60.0 mg/dL (Normal) :02 CBC WITH MANUAL DIFF Comments: PATIENT WAS FASTINGPERFORMED BY: LabThe Young TurksPalisades Medical CenterEwgxdi7381 [facility] [id number] Information: [id number] CC:[id number] (20927) Immature Grans (Abs) 0.0 {x10E3/uL} (Normal) Range: [...] {x10E3/uL} (Normal) Range: 3.4-10.8 :02 HGB A1C (88845) Comments: PATIENT WAS FASTINGPERFORMED BY: [employer] Tbnklb6921 [facility] [id number] Hemoglobin A1c 6.4 % (Abnormal) Range: 4.8-5.6 Comments: . Pre-diabetes: 5.7 - 6.4 Diabetes: >6.4 Glycemic control for adults with diabetes: <7.0 :02 Lipid Panel (50414) Comments: PATIENT WAS FASTINGPERFORMED BY: [employer]70 [facility] [id number] LDL/HDL Ratio 1.1 {ratio_units} (Normal) Range: 0.0-3.2 [...] Cholesterol, Total 160 mg/dL (Normal) Range: 100-199 21-Ret-234582:03 HgA1C , Office (77949) HgA1C , Office 6.1 % (Normal) Range: 4.6 - 7.1 :24 CBC W/AUTO DIFF WBC Comments: PATIENT WAS FASTINGPERFORMED BY: Dress CodeCoPalisades Medical CenterBfbumf0564 [facility] [id number] Information: [id number] (46531) Immature Grans (Abs) 0.0 {x10E3/uL} (Normal) Range: [...] CREATININE RATIO Comments: PATIENT WAS FASTINGPERFORMED BY: LabCoPalisades Medical CenterVvqxgc4107 [facility] [facility] [id number] (54437) AND (10288) Microalb/Creat Ratio 1223.8 {mg/g_creat} (Abnormal) Range: 0.0-30.0 Microalbumin, Urine 1012.1 ug/mL (Abnormal) Range: 0.0-17.0 Comments: Results confirmed ondilution. Creatinine, Urine 82.7 mg/dL (Normal) Range: 15.0-278.0 :24 METABOLIC PANEL, COMPREHENSIVE Comments: PATIENT WAS FASTINGPERFORMED BY: Yhat [facility] [id number] (52426) ALT (SGPT) 12 [iU]/L (Normal) Range: 0-32 [...] mg/dL (Abnormal) Range: 65-99 :24 LIPID PANEL (45765) Comments: PATIENT WAS FASTINGPERFORMED BY: Panda Graphicsox RoadDublin [place] [id number] LDL/HDL Ratio 1.1 {ratio_units} (Normal) Range: 0.0-3.2 [...] Cholesterol, Total 150 mg/dL (Normal) Range: 100-199 08-Pum-58431:30 CBC W/Diff, Automated Comments: [facility] [address] [place], [place], [id number] Absolute Lymph 0.83 {X10_3/ul} (Normal) Range: 0.83-4.51 [...] (Normal) Range: 4.4-11.0 :30 Hemoglobin A1c Comments: [facility] [address] [place], [place], [id number] HGB A1C 6.1 % (Normal) Range: 4.2-6.3 :30 Magnesium Comments: [facility] [address] [place], [place], [id number] MG 1.8 mg/dL (Normal) Range: 1.8-2.4 :30 Protein+Creatinine Ratio,Urine Comments: [facility] [address] [place], [place], [address] PROT:CRE RATIO 2121 {mg/g_CRE} (Abnormal) Range: 0-200 PROTEIN,UR.RAN. 164.2 mg/dL (Abnormal) UR CREAT 77.40 mg/dL (Normal) :30 Renal Profile Comments: [address] [place], [place], [id number] CO2 27.0 mmol/L (Normal) Range: 21.0-32.0 CL [...] 126 mg/dLsuggests DIABETES MELLITUS per A.D.A. criteria. 71-Oxe-49321:00 24 HR UR Creatinine Clearance Comments: [facility] [address] [place], [place], [address] CREAT CLEARANCE 24 ml/min (Abnormal) Range: 100-200 URINE CREAT 20.6 mg/dL (Normal) EST GFR - AA 38 mL/min (Abnormal) Comments: GFR Calc EST GFR 31 mL/min (Abnormal) Comments: Non- GFR Calc SERUM CREAT 1.7 mg/dL (Abnormal) Range: 0.6-1.0 UR TOTAL VOLUME 2800 mL (Normal) UR COLLECT TIME 24.0 {HOURS} (Normal) 22-Sfv-58260:00 Protein, Urine 24HR Comments: [facility] [address] [place], [place], [address] 24hr UR PROTEIN 1178.8 {mg/24HR} (Abnormal) URINE PROTEIN 42.1 mg/dL (Abnormal) UR TOTAL VOLUME 2800 mL (Normal) UR COLLECT TIME 24.0 {HOURS} (Normal) 5-Onk-718682:29 Metabolic Panel, Basic Comments: PATIENT NOT FASTINGPERFORMED BY: LabCoPalisades Medical CenterUvklfc8974 [facility] [id number] Information: [id number] (71434) Calcium, Serum 9.3 mg/dL (Normal) Range: 8.7-10.3 [...] Basic Comments: tuesday; PATIENT NOT FASTINGPERFORMED BY: LabThe Young TurksPalisades Medical CenterFsnjcn9980 [facility] [id number] Information: [id number] (26701) Calcium, Serum 9.0 mg/dL (Normal) Range: 8.7-10.3 [...] Glucose, Serum 149 mg/dL (Abnormal) Range: 65-99 42-Fbr-762507:32 HgA1C , Office (70442) HgA1C , Office 6.2 % (Normal) Range: 4.6 - 7.1 :31 Rapid Strep Test, Office (79333) Comments: neg Rapid Strep Test, Office Negative (Normal) :06 THROAT CULTURE (45454) Comments: PATIENT NOT FASTINGPERFORMED BY: LabCoPalisades Medical CenterDdjrsp5222 [facility] [id number] Information: [id number] Result 1 RRF (Normal) Comments: Routine respiratory luis Upper Respiratory Culture Final report (Normal) :52 TSH (84954) Comments: PATIENT WAS FASTINGPERFORMED BY: LabCo Uorroh8061 [facility] [id number] TSH 2.190 {uIU/mL} (Normal) Range: 0.450-4.500 :52 Vitamin D Hydroxy (55044) Comments: PATIENT WAS FASTINGPERFORMED BY: [facility] Gfctgr5170 [facility] [id number] Vitamin D, 25-Hydroxy 43.8 ng/mL (Normal) Range: 30.0-100.0 Comments: Vitamin D deficiency has been defined by the Guild ofMedicine and an Endocrine Society practice guideline as alevel of serum 25-OH vitamin D less than 20 ng/mL (1,2).The Endocrine Society went on to further define vitamin Dinsufficiency as a level between 21 and 29 ng/mL (2).1. IOM (Guild of Medicine). 2010. Dietary reference intakes for calcium and D. [place]: The National Academies Press.2. Mira MF, Rosette LOPEZ, Tommy SWAIN, et al. Evaluation, treatment, and prevention of vitamin D deficiency: an Endocrine Society clinical practice guideline. JCEM. 2010; 96(7):1911-30. :52 LIPID PANEL (61402) Comments: PATIENT WAS FASTINGPERFORMED BY: LabCoPalisades Medical CenterXdnmpa4635 [facility] [id number] LDL/HDL Ratio 1.3 {ratio_units} (Normal) Range: 0.0-3.2 [...] auto diff Comments: PATIENT WAS FASTINGPERFORMED BY: [facility]6370 [facility] [id number] Information: [id number] (14761) Immature Grans (Abs) 0.0 {x10E3/uL} (Normal) Range: [...] PANEL, COMPREHENSIVE Comments: PATIENT WAS FASTINGPERFORMED BY: [facility]6370 [facility] [id number] (50634) ALT (SGPT) 19 [iU]/L (Normal) Range: 0-32 [...] Glucose, Serum 127 mg/dL (Abnormal) Range: 65-99 0-Lpz-001590:08 HgA1C , Office (93813) HgA1C , Office 6.4 % (Normal) Range: 4.6 - 7.1 8-Idr-858530:00 Creatinine Clearance Comments: PATIENT NOT FASTINGPERFORMED BY: LabCoPalisades Medical CenterKfxqzi7915 [facility] [id number] Information: [id number] S TART Creatinine Clearance 33 mL/min (Abnormal) Range: 88-128 Comments: The above range is based on 1.73 square meter average body surfacearea. Creatinine, Ur 24hr 642.0 {mg/24_hr} (Abnormal) Range: 800.0-1800.0 Creatinine, Urine 34.7 mg/dL (Normal) Range: 15.0-278.0 eGFR If Africn Am 43 mL/min/1.73 (Abnormal) eGFR If NonAfricn Am 37 mL/min/1.73 (Abnormal) Creatinine, Serum 1.37 mg/dL (Abnormal) Range: 0.57-1.00 9-Ido-601297:00 Protein Total, Qn, 24-Hr Comments: PATIENT NOT FASTINGPERFORMED BY: [facility] Sqajnn7690 [facility] [id number] Urine Prot,24hr calculated 1309.8 {mg/24_hr} (Abnormal) Range: 30.0-150.0 Protein,Total,Urine 70.8 mg/dL (Abnormal) Range: 0.0-15.0 09-Oct-20149:01 CBC W/Diff, Automated Comments: Test performed at:[facility] [address] [place] [address] Absolute Neut 3.1 {X10_3/uL} (Normal) [...] Range: 4.4-11.0 :01 Magnesium Comments: Test performed at:[facility] Q[address] [place] [address] MG 2.0 mg/dL (Normal) Range: 1.8-2.4 :01 Protein+Creatinine Ratio,Urine Comments: Test performed at:[facility] [address] [place] [address] PROT:CRE RATIO 2232 {mg/g_CRE} (Abnormal) Range: 0-200 PROTEIN,UR.RAN. 160.3 mg/dL (Abnormal) UR CREAT 71.8 mg/dL (Normal) :01 Renal Profile Comments: Test performed at:[facility] I[address] [place] [address] 404731 CO2 32.0 mmol/L (Normal) Range: 21.0-32.0 CL [...] mg/dL (Normal) Range: 70-110 :08 LIPID PANEL (95036) Comments: PATIENT WAS FASTINGPERFORMED BY: LabCoPalisades Medical CenterZdjbne5193 [facility] [id number] LDL/HDL Ratio 1.0 {ratio_units} (Normal) Range: 0.0-3.2 [...] Cholesterol, Total 149 mg/dL (Normal) Range: 100-199 73-Jwm-22388:08 METABOLIC PANEL, Comments: PATIENT WAS FASTINGPERFORMED BY: LabCoPalisades Medical CenterSrnqpj9833 [facility] [id number] Information: [id number] COMPREHENSIVE (47419) ALT (SGPT) 29 [iU]/L (Normal) Range: 0-32 [...] (Abnormal) Range: 65-99 :59 HgA1C , Office (73147) HgA1C , Office 6.5 % (Normal) Range: 4.6 - 7.1 :54 CBC W/AUTO DIFF WBC Comments: PATIENT WAS FASTINGPERFORMED BY: LabCoPalisades Medical CenterPbvncr9036 [facility] [id number] Information: [id number] (13136) Immature Grans (Abs) 0.0 {x10E3/uL} (Normal) Range: [...] PANEL, COMPREHENSIVE Comments: PATIENT WAS FASTINGPERFORMED BY: CompuMed70 [facility] [id number]; non- emergent till apt (86680) ALT (SGPT) 13 [iU]/L (Normal) Range: 0-32 [...] mg/dL (Abnormal) Range: 65-99 :54 LIPID PANEL (77271) Comments: PATIENT WAS FASTINGPERFORMED BY: [employer] Path6370 [facility] [id number] LDL/HDL Ratio 1.1 {ratio_units} (Normal) Range: 0.0-3.2 [...] (Normal) Range: 100-199 :29 HgA1C , Office (21814) HgA1C , Office 6.6 % (Normal) Range: 4.6 - 7.1 :12 CBC W/Diff, Automated Comments: Test performed at:[facility] [address], [place] [id number] ; handled by Dr. Santana Absolute Lymph [...] Range: 4.4-11.0 :12 Magnesium Comments: Test performed at:[facility] [address] [place] [address] MG 2.0 mg/dL (Normal) Range: 1.8-2.4 :12 Microalb:Creat Ratio,Random UR Comments: Test performed at:[facility] [address] [place] [address] ; Dr. Angelo LING:CREAT 1483.0 {mg/g_CRE} (Abnormal) MICROALBUMIN,UR 918.0 mg/L (Normal) UR CREAT 61.9 mg/dL (Normal) :12 Renal Profile Comments: Test performed at:[facility] Y[address] [place] [address] CO2 29.0 mmol/L (Normal) Range: 21.0-32.0 CL [...] 126 mg/dLsuggests DIABETES MELLITUS per A.D.A. criteria. 91-Fds-037392:20 LIPID PANEL (53048) Comments: PATIENT WAS FASTINGPERFORMED BY: Toto CommunicationsPalisades Medical CenterEjfynh7120 [facility] [id number] LDL/HDL Ratio 1.0 {ratio_units} (Normal) Range: 0.0-3.2 [...] Cholesterol, Total 151 mg/dL (Normal) Range: 100-199 33-Fxp-739209:20 METABOLIC PANEL, Comments: PATIENT WAS FASTINGPERFORMED BY: Toto CommunicationsPalisades Medical CenterSxfoyd6964 [facility] [id number] Information: [id number] COMPREHENSIVE (21888) ALT (SGPT) 16 [iU]/L (Normal) Range: 0-32 [...] Glucose, Serum 148 mg/dL (Abnormal) Range: 65-99 94-Tiq-021904:21 CREATININE CLEARANCE Comments: PATIENT WAS FASTINGPERFORMED BY: Toto CommunicationsPalisades Medical CenterExoowa5438 [facility] [id number] Information: [id number] START 04/02/14@9AM FINISH 04/03/14 6:00 AM (97337) Creatinine Clearance 42 mL/min (Abnormal) Range: 88-128 Comments: The above range is based on 1.73 square meter average body surfacearea. Creatinine, Ur 24hr 812.3 {mg/24_hr} (Normal) Range: 800.0-1800.0 Creatinine, Urine 28.5 mg/dL (Normal) Range: 15.0-278.0 eGFR If Africn Am 45 mL/min/1.73 (Abnormal) eGFR If NonAfricn Am 39 mL/min/1.73 (Abnormal) Creatinine, Serum 1.33 mg/dL (Abnormal) Range: 0.57-1.00 53-Cub-030227:21 Total Protein,24 Hour Urine Comments: PATIENT WAS FASTINGPERFORMED BY: Toto CommunicationsPalisades Medical CenterIzlxsb6637 [facility] [id number] (10401) Prot,24hr calculated 1559.0 {mg/24_hr} (Abnormal) Range: 30.0-150.0 Protein,Total,Urine 54.7 mg/dL (Abnormal) Range: 0.0-15.0 :57 LIPID PANEL (49551) Comments: PATIENT WAS FASTINGPERFORMED BY: [employer] Mwgifs6085 [facility] [id number] LDL/HDL Ratio 1.1 {ratio_units} (Normal) Range: 0.0-3.2 [...] MANUAL DIFF Comments: PATIENT WAS FASTINGPERFORMED BY: LabCoPalisades Medical CenterFthlkt5521 [facility] [id number] Information: [id number] (20534) Immature Grans (Abs) 0.0 {x10E3/uL} (Normal) Range: [...] PANEL, COMPREHENSIVE Comments: PATIENT WAS FASTINGPERFORMED BY: LabUniversity [facility]–West6370 [facility] [id number] (29144) ALT (SGPT) 10 [iU]/L (Normal) Range: 0-32 [...] Units: mg/dL AdultPerformed at: CB - [facility] Ofyelo9122 [place], [place] [id number] Director: Yousuf Bernardo PhD, Phone: [phone] C4 37 (Abnormal) Range: 9-36 0 [...] 75.6 mg/dL (Abnormal) CREU 49.3 mg/dL (Normal) 74-Ehv-76177:21 CBC WITH MANUAL DIFF Comments: PATIENT WAS FASTINGPERFORMED BY: LabCoPalisades Medical CenterPcmnex6948 [facility] [id number] Information: [id number] (78141) Immature Grans (Abs) 0.0 {x10E3/uL} (Normal) Range: [...] 3.77-5.28 WBC 4.5 {x10E3/uL} (Normal) Range: 3.4-10.8 43-Qin-33226:21 METABOLIC PANEL, COMPREHENSIVE Comments: PATIENT WAS FASTINGPERFORMED BY: LabCoPalisades Medical CenterBvmlhh8437 [facility] [id number] (91736) ALT (SGPT) 16 [iU]/L (Normal) Range: 0-32 [...] Glucose, Serum 132 mg/dL (Abnormal) Range: 65-99 18-Hif-554638:53 CREATININE CLEARANCE Comments: PATIENT NOT FASTINGPERFORMED BY: [employer] Nzincu0571 [facility] [id number] Information: [id number] START 10/30/13@8AM F INISH 10/31/13@8AM 2650ML (92715) Creatinine Clearance 44 mL/min (Abnormal) Range: 88-128 [...] Hour Urine Comments: PATIENT NOT FASTINGPERFORMED BY: Escape DynamicsPalisades Medical CenterEufsaj6822 [facility] [id number] (17123) Prot,24hr calculated 3458.3 {mg/24_hr} (Abnormal) Range: 30.0-150.0 Protein,Total,Urine 130.5 mg/dL (Abnormal) Range: 0.0-15.0 35-Mid-764058:31 HgA1C , Office (90948) HgA1C , Office 6.4 % (Normal) Range: 4.6 - 7.1 34-Lvs-959823:27 Microscopic Examination Comments: PATIENT WAS FASTINGPERFORMED BY: Toto CommunicationsGuadalupe County HospitalXtmqpm1685 [facility] [id number] Bacteria Few (Normal) Mucus Threads Present (Normal) Epithelial Cells (non renal) 0-10 {/hpf} (Normal) Range: 0 - 10 RBC 3-10 {/hpf} (Abnormal) Range: 0 - 2 WBC 6-10 {/hpf} (Abnormal) Range: 0 - 5 :32 LIPID PANEL (28425) Comments: PATIENT WAS FASTINGPERFORMED BY: Toto CommunicationsGuadalupe County HospitalCzxkzu6967 [facility] [id number] LDL/HDL Ratio 1.0 {ratio_units} (Normal) Range: 0.0-3.2 [...] CREATININE RATIO Comments: PATIENT WAS FASTINGPERFORMED BY: Toto CommunicationsPalisades Medical CenterShtgud6653 [facility] [id number] (19791) AND (04788) Microalb/Creat Ratio 1998.9 {mg/g_creat} (Abnormal) Range: 0.0-30.0 Creatinine, Urine 73.4 mg/dL (Normal) Range: 15.0-278.0 Microalbumin, Urine 1467.2 ug/mL (Abnormal) Range: 0.0-17.0 :32 URINALYSIS, W/ MICRO (42167) Comments: PATIENT WAS FASTINGPERFORMED BY: Dress CodeUniversity [facility]–West6370 [facility] [id number] Microscopic Examination See below: (Normal) Comments: Microscopic was indicated and was performed. Nitrite, Urine Negative (Normal) Urobilinogen,Semi-Qn 0.2 mg/dL (Normal) Range: 0.0-1.9 Bilirubin Negative (Normal) Occult Blood Trace (Abnormal) Ketones Negative (Normal) Glucose Negative (Normal) Protein 3+ (Abnormal) WBC Esterase Trace (Abnormal) Appearance Clear (Normal) Urine-Color Yellow (Normal) pH 6.5 (Normal) Range: 5.0-7.5 Specific [place] 1.015 (Normal) Range: 1.005-1.030 :32 CBC WITH MANUAL DIFF Comments: PATIENT WAS FASTINGPERFORMED BY: LabDaniel Ville [id number] [facility] [id number] Information: [id number] (84981) Immature Grans (Abs) 0.0 {x10E3/uL} (Normal) Range: [...] PANEL, COMPREHENSIVE Comments: PATIENT WAS FASTINGPERFORMED BY: [facility]6370 [facility] [id number] (08650) ALT (SGPT) 16 [iU]/L (Normal) Range: 0-32 [...] B-12 (CYANOCOBALAMIN) Comments: PATIENT WAS FASTINGPERFORMED BY: LabCoPalisades Medical CenterTmyvov3711 [facility] [id number] (59563) Vitamin B12 >1999 pg/mL (Abnormal) Range: 211-946 :01 HgA1C , Office (75177) HgA1C , Office 6.4 % (Normal) Range: 4.6 - 7.1 :37 METABOLIC PANEL, COMPREHENSIVE Comments: PATIENT WAS FASTINGPERFORMED BY: LabCoPalisades Medical CenterFbleeu9219 [facility] [id number] (40583) ALT (SGPT) 12 [iU]/L (Normal) Range: 0-32 [...] (Abnormal) Range: 65-99 :37 Vitamin D Hydroxy (86152) Comments: PATIENT WAS FASTINGPERFORMED BY: [employer] Zyweme8591 [facility] [id number] Vitamin D, 25-Hydroxy 47.4 ng/mL (Normal) Range: 30.0-100.0 Comments: Vitamin D deficiency has been defined by the Guild ofUniversity Hospitals Cleveland Medical Centercine and an Endocrine Society practice guideline as alevel of serum 25-OH vitamin D less than 20 ng/mL (1,2).The Endocrine Society went on to further define vitamin Dinsufficiency as a level between 21 and 29 ng/mL (2).1. IOM (Guild of Medicine). 2010. Dietary reference intakes for calcium and D. [place]: The National Academies Press.2. Mira MF, Rosette NC, Tommy SWAIN, et al. Evaluation, treatment, and prevention of vitamin D deficiency: an Endocrine Society clinical practice guideline. JCEM. 2010; 96(7):1911-30. :37 LIPID PANEL (72789) Comments: PATIENT WAS FASTINGPERFORMED BY: [employer] Qeimwl8599 [facility] [id number] LDL/HDL Ratio 1.2 {ratio_units} (Normal) Range: 0.0-3.2 [...] MANUAL DIFF Comments: PATIENT WAS FASTINGPERFORMED BY: Dress CodeUniversity Of Michigan Health–West6370 [facility] [id number] Information: [id number] (03044) Immature Grans (Abs) 0.0 {x10E3/uL} (Normal) Range: [...] Qn, 24-Hr Comments: PATIENT NOT FASTINGPERFORMED BY: BioIQ70 [facility] [id number] Information: ADD [id number] AND DRAW FEE 99 6660 VOLUME 2600 164LBS 5' '3 Urine Prot,24hr calculated 920.4 {mg/24_hr} Range: 30.0-150.0 (Abnormal) Protein,Total,Urine 35.4 mg/dL Range: 0.0-15.0 (Abnormal) : Written Authorization WAR (Normal) Comments: PATIENT NOT FASTINGPERFORMED BY: [employer] Jhjhqn7067 [facility] [id number] Comments: Written Authorization Received.Authorization received from Chiqui BRICEÑO LPN [id number] by Marleen Sharma :52 Metabolic Panel, Basic Comments: PATIENT NOT FASTINGPERFORMED BY: [employer] Lqcnlp0734 [facility] [id number] Information: ADD [id number] AND DRAW FEE 99 6660 VOLUME 2600 164LBS 5' '3 (39762) Calcium, Serum 9.7 mg/dL (Normal) Range: 8.6-10.2 [...] mg/dL (Abnormal) Range: 65-99 :52 CREATININE CLEARANCE (81415) Comments: PATIENT NOT FASTINGPERFORMED BY: Toto CommunicationsPalisades Medical CenterEdxhzn1670 [facility] [id number] Creatinine Clearance 46 mL/min (Abnormal) Range: 88-128 Comments: The above range is based on 1.73 square meter average body surfacearea. Creatinine, Ur 24hr 899.6 {mg/24_hr} (Normal) Range: 800.0-1800.0 Creatinine, Urine 34.6 mg/dL (Normal) Range: 15.0-278.0 :52 24 hour urine for Protein Comments: PATIENT NOT FASTINGPERFORMED BY: Toto CommunicationsPalisades Medical CenterKunoia9231 [facility] [id number] (48817) Microalb/Creat Ratio 695.4 {mg/g_creat} (Abnormal) Range: 0.0-30.0 Microalbumin, Urine 240.6 ug/mL (Abnormal) Range: 0.0-17.0 :13 HgA1C , Office (91135) HgA1C , Office 6.3 % (Normal) Range: 4.6 - 7.1 7-Ugg-007948:01 Blood Glucose , Office (59943) Blood Glucose , Office 162 (Normal) 73-Zxq-442887:02 Microscopic Examination Comments: PATIENT NOT FASTINGPERFORMED BY: [facility] Qivvmb8018 [facility] [id number] Bacteria Few (Normal) Mucus Threads Present (Normal) [...] Hebert M.D.October 19, 2012 at 2:42:14 PM [id number] Signed GP/GP If you are the referring physician and would like to consult [facility] theradiologist who provided this interpretation, please contact Yasmany Pond at [phone]. If this radiologist is unavailable, youwill be directed to another radiologist to assist. If y ou are a patient with a question regarding this report, pleasecontactyour referring physician directly. Professional Interpretation Provided By: mInfo, Phone , These documents contain legally protected [...] Sign by: Misael Hebert MD :59 TSH (95160) Comments: PATIENT WAS FASTINGPERFORMED BY: [facility]6370 [facility] [id number] TSH 1.230 {uIU/mL} (Normal) Range: 0.450-4.500 :59 LIPID PANEL (36021) Comments: PATIENT WAS FASTINGPERFORMED BY: [address] [id number] LDL/HDL Ratio 0.5 {ratio_units} (Normal) Range: 0.0-3.2 LDL Cholesterol Calc 47 mg/dL (Normal) Range: 0-99 Cholesterol, Total 149 mg/dL (Normal) Range: 100-199 HDL Cholesterol 91 mg/dL (Normal) Comments: According to ATP-III Guidelines, HDL-C >59 mg/dL is considered anegative risk factor for CHD. Triglycerides 57 mg/dL (Normal) Range: 0-149 VLDL Cholesterol Cesar 11 mg/dL (Normal) Range: 5-40 56-Nim-909782:02 URINALYSIS, W/ MICRO Comments: PATIENT NOT FASTINGPERFORMED BY: [address] [id number] Information: [id number] (95832) Microscopic Examination See below: (Normal) Nitrite, Urine Negative (Normal) Bilirubin Negative (Normal) Urobilinogen,Semi-Qn 0.2 mg/dL (Normal) Range: 0.0-1.9 Occult Blood Negative (Normal) Ketones Negative (Normal) Glucose Negative (Normal) Protein 3+ (Abnormal) WBC Esterase Negative (Normal) Appearance Clear (Normal) Urine-Color Yellow (Normal) pH 5.5 (Normal) Range: 5.0-7.5 Specific [place] 1.015 (Normal) Range: 1.005-1.030 :59 CBC WITH MANUAL DIFF Comments: PATIENT WAS FASTINGPERFORMED BY: [place] 1018970 [facility] [id number] Information: [id number] (50896) Immature Grans (Abs) 0.0 {x10E3/uL} (Normal) Range: [...] 3.77-5.28 WBC 4.8 {x10E3/uL} (Normal) Range: 3.4-10.8 27-Pmd-527588:59 METABOLIC PANEL, COMPREHENSIVE Comments: PATIENT WAS FASTINGPERFORMED BY: LabCoPalisades Medical CenterNsbzgl7209 [facility] [id number] (26936) ALT (SGPT) 14 [iU]/L (Normal) Range: 0-32 [...] Glucose, Serum 104 mg/dL (Abnormal) Range: 65-99 7-Yuz-588660:37 HgA1C , Office (96997) HgA1C , Office 6.0 % (Normal) Range: 4.6 - 7.1 7-Mqu-577973:31 CRE CREAT 1.3 mg/dL (Abnormal) Range: 0.6-1.0 8-May-69415:00 BRAIN W/WO CONTRAST Radiology Report See Note [...] Galan M.D.August 09, 2012 at 2:38:03 PM [id number] Signed PV/PV If you are the referring physician and would like to consult with theradiologist who provided this interpretation, please contact Donna Burnett M.D. at [phone]. If this radiologist is unavailable, youwillbe directed [...] 08/09/12 1441 Sign by: Donna Martin MD 28-Unx-956485:31 CBC with manual diff Comments: PATIENT NOT FASTINGPERFORMED BY: LabCoPalisades Medical CenterRkydbd8518 [facility] [id number] Information: [id number] (49027) Immature Grans (Abs) 0.0 {x10E3/uL} (Normal) Range: [...] 3.77-5.28 WBC 3.2 {x10E3/uL} (Abnormal) Range: 4.0-10.5 23-Pad-525533:31 Metabolic Panel, Comprehensive Comments: PATIENT NOT FASTINGPERFORMED BY: LabCoPalisades Medical CenterZgfolm2037 [facility] [id number] (59134) ALT (SGPT) 19 [iU]/L (Normal) Range: 0-32 [...] mg/dL (Abnormal) Range: 65-99 :31 LIPID PANEL (83439) Comments: PATIENT WAS FASTINGPERFORMED BY: Toto CommunicationsPalisades Medical CenterGpdecs9021 [facility] [id number] LDL/HDL Ratio 0.8 {ratio_units} (Normal) Range: 0.0-3.2 [...] MANUAL DIFF Comments: PATIENT WAS FASTINGPERFORMED BY: LabThe Young TurksPalisades Medical CenterZztfbn9344 [facility] [id number] Information: [id number] (37629) Immature Grans (Abs) 0.0 {x10E3/uL} (Normal) Range: [...] PANEL, COMPREHENSIVE Comments: PATIENT WAS FASTINGPERFORMED BY: LabCoPalisades Medical CenterBchxee4777 [facility] [id number] (26295) ALT (SGPT) 22 [iU]/L (Normal) Range: 0-32 [...] (Abnormal) Range: 65-99 :45 HgA1C , Office (29274) HgA1C , Office 6.1 % (Normal) Range: 4.6 - 7.1 05-Okh-890651:16 CRE CREAT 1.1 mg/dL (Abnormal) Range: 0.6-1.0 84-Jii-87128:00 BRAIN W/WO CONTRAST Radiology Report See Note [...] Galan M.D.February 02, 2012 at 5:10:18 PM [id number] Signed PV/PV If you are the referring physician and w sarahild like to consult with theradiologist who provided this interpretation, please contact Donna Burnett M.D. at [phone]. If this radiologist is unavailable, youwillbe directed to another radiol ogist to assist. If you are a patient with a question regarding this report, pleasecontactyour referring physician directly. Professional Interpretation Provided By: mInfo, Phone ,Fa x [phone] These documents contain legally protected and confidential [...] [address]14 [address] ign by: Donna Martin MD 84-Ndv-540235:16 DEXA BONE DENSITY STUDY (HP) Radiology Report [...] Coronel M.D.January 20, 2012 at 2:43:46 PM [phone] Signed KERA/KERA If you ar e the [...] on 01/20/121446 Sign by: David Coronel MD 63-Rik-559967:15 BILAT SCRN DIGITAL & CAD Radiology Report [...] Coronel M.D.January 20, 2012 at 1:20:11 PM [phone] Signed KERA/KERA If you are the referring physician and would like to consult with theradiologist who provided this interpretation, please contact Yasmany Parnell at . If this radiologist is unavailable,youwill be directed to another radiologist to assist. If you are a patient with a question regarding this report, pleasecontactyour referring physician directly. Professional Interpretation Provided By: mInfo, Phone , These documents contain legally protected [...] MD on 01/20/12 1324 Sign by: David oCronel MD 6-Tzn-172761:56 PELVIC (NON ) Radiology Report See Note [...] Vuong M.D.January 10, 2012 at 8:39:09 PM [id number] Signed JL/JOHNNY If you are the referring physician and would like to consult with theradiologist who provided this inte rpretation, please contact Radha Vuong M.D. at [phone]. If this radiologist is unavailable, you will bedirected to another radiologist to assist. If you are a patient with a question regarding this r eport, pleasecontactyour referring physician directly. Professional Interpretation Provided By: mInfo, Phone , PROCEDURE: ULTRASOUND OF THE FEMALE [...] Vuong M.D.January 10, 2012 at 8:40:07 PM [id number] Signed JL/JL If you are the referring physician and would like to consult with theradiologist who provided this interpretation, please contact Radha Vuong M.D. at [phone]. If this radiologist is unavailable, you will bedirected to another radiologist to assist. If you are a patient with a question regarding this report, pleasecontactyour referring ysician directly. Professional Interpretation Provided By: mInfo, Phone , These documents contain legally protected [...] Dictated on 01/10/12 1309 by TATIANA VUONG [facility] on 01/11/12 1113 by ITS IMPORTSign by RADHA VUONG MD on 01/11/12 1114 Sign by: RADHA VUONG MD :35 MICROALBUMIN: CREATININE RATIO Comments: PATIENT WAS FASTINGPERFORMED BY: Toto CommunicationsPalisades Medical CenterTglyqv4485 [facility] [id number] (36254) AND (85654) Microalb/Creat Ratio 829.4 {mg/g_creat} (Abnormal) Range: 0.0-30.0 Microalbumin, Urine 437.1 ug/mL (Abnormal) Range: 0.0-17.0 Creatinine, Urine 52.7 mg/dL (Normal) Range: 15.0-278.0 :35 CBC WITH MANUAL DIFF Comments: PATIENT WAS FASTINGPERFORMED BY: RAMp Sports LabThe Young Turks Rsuohy9671 [facility] [id number] Information: [id number] (44168) Immature Grans (Abs) 0.0 {x10E3/uL} (Normal) Range: [...] PANEL, COMPREHENSIVE Comments: PATIENT WAS FASTINGPERFORMED BY: LabCoPal[facility] Medical CenterBqbeye6633 [facility] [id number] (41039) ALT (SGPT) 15 [iU]/L (Normal) Range: 0-32 [...] mg/dL (Abnormal) Range: 65-99 :35 LIPID PANEL (35260) Comments: PATIENT WAS FASTINGPERFORMED BY: Toto CommunicationsPalisades Medical CenterWebvwc7180 [facility] [id number] LDL/HDL Ratio 0.9 {ratio_units} (Normal) Range: 0.0-3.2 LDL Cholesterol Calc 72 mg/dL (Normal) Range: 0-99 HDL Cholesterol 83 mg/dL (Normal) Comments: According to ATP-III Guidelines, HDL-C >59 mg/dL is considered anegative risk factor for CHD. VLDL Cholesterol Cesar 18 mg/dL (Normal) Range: 5-40 Triglycerides 90 mg/dL (Normal) Range: 0-149 Cholesterol, Total 173 mg/dL (Normal) Range: 100-199 :15 HgA1C , Office (50324) HgA1C , Office 6.2 % (Normal) Range: 4.6 - 7.1 :30 CBC WITH MANUAL DIFF Comments: PATIENT WAS FASTINGPERFORMED BY: LabCoPalisades Medical CenterJnvjsp3382 [facility] [id number] Information: [id number] (77061) Immature Grans (Abs) 0.0 {x10E3/uL} (Normal) Range: [...] 3.77-5.28 WBC 4.2 {x10E3/uL} (Normal) Range: 4.0-10.5 80-Abx-04870:30 METABOLIC PANEL, COMPREHENSIVE Comments: PATIENT WAS FASTINGPERFORMED BY: LabCo Qflepe2809 [facility] [id number] (61093) ALT (SGPT) 19 [iU]/L (Normal) Range: 0-40 [...] mg/dL (Abnormal) Range: 65-99 :30 LIPID PANEL (07901) Comments: PATIENT WAS FASTINGPERFORMED BY: LabCoPal[facility]ades Medical CenterXaqlbt8597 [facility] [id number] LDL/HDL Ratio 0.9 {ratio_units} (Normal) Range: 0.0-3.2 [...] note reference interval change :48 Rapid Flu (75311 x 2) Influenza A Ag negative (Normal) [...] redmond M.D.November 05, 2011 at 3:25:08 PM [id number] Signed GP/GP If you are the referring physician and would like to consult with theradiologist who provided this interpretation, please contact Yasmany Pond at [phone]. If this radiologist is unavailable, youwill be directed to another radiologist to assist. If you are a patient with a question regarding this report, ple asecontactyour referring physician directly. Professional Interpretation Provided By: mInfo, Phone , These documents contain legally protected [...] MD on 11/05/11 1552 Sign by: Misael Hebret MD 05-Nov-20110:00 PELVIS WITH IV CONTRAST Radiology [...] redmond M.D.November 05, 2011 at 3:25:08 PM [id number] Signed GP/GP If you are the referring physician and would like to consult with theradiologist who provided this interpretation, please contact Yasmany Pond at [phone]. If this radiologist is unavailable, youwill be directed to another radiologist to assist. If you are a patient with a question regarding this report, ple asecontactyour referring physician directly. Professional Interpretation Provided By: mInfo, Phone , These documents contain legally protected [...] 11/05/11 155 Sign by: Misael Hebert MD 66-Huj-733480:20 METABOLIC PANEL, Comments: PATIENT WAS FASTINGPERFORMED BY: [facility]6370 [facility] [id number] Information: [id number],2ND ORDER NO DRAW F [facility] (96543) ALT (SGPT) 31 [iU]/L (Normal) Range: 0-40 [...] Glucose, Serum 155 mg/dL (Abnormal) Range: 65-99 07-Qft-58944:49 Creatinine Clearance Comments: PATIENT WAS FASTINGPERFORMED BY: EVE LabCoPalisades Medical CenterHgwlft3733 [facility] [id number] Information: 10/30@6AM 10/31@730AM Creatinine Clearance 58 mL/min [...] Qn, 24-Hr Comments: PATIENT WAS FASTINGPERFORMED BY: LabCoPalisades Medical CenterPzwlne3874 [facility] [id number] Urine Prot,24hr calculated 1023.8 {mg/24_hr} (Abnormal) Range: 30.0-150.0 Protein,Total,Urine 52.5 mg/dL (Abnormal) Range: 0.0-15.0 :04 HgA1C , Office (64356) HgA1C , Office 6.1 % (Normal) Range: [...] regarding this repor t, please call our [id number] line @ Dictated on 07/27/11 1040 by GAYE PEREZ MD RTranscribed on 07/28/11 1225 by ITS IMPORTSign by GAYE PEREZ MD on 07/28/11 1225 Sign by: GAYE PEREZ MD 06-Fhm-59190:54 Vitamin D Hydroxy (96972) Comments: PATIENT WAS FASTINGPERFORMED BY: LabCoPalisades Medical CenterEnjuoc2399 [facility] [id number] Vitamin D, 25-Hydroxy 48.8 ng/mL (Normal) Range: 30.0-100.0 Comments: Vitamin D deficiency has been defined by the Guild ofMedicine and an Endocrine Society practice guideline as alevel of serum 25-OH vitamin D less than 20 ng/mL (1,2).The Endocrine Society went on to further define vitamin Dinsufficiency as a level between 21 and 29 ng/mL (2).1. IOM (Guild of Medicine). 2010. Dietary reference intakes for calcium and D. [place]: The National Academies Press.2. Mira MF, Rosette [place], Tommy SWAIN, et al. Evaluation, treatment, and prevention of vitamin D deficiency: an Endocrine Society clinical practice guideline. JCEM. 2010; 96(7):1911-30. :54 LIPID PANEL (39096) Comments: PATIENT WAS FASTINGPERFORMED BY: [employer] [facility] [id number] LDL/HDL Ratio 1.0 {ratio_units} (Normal) Range: 0.0-3.2 [...] MANUAL DIFF Comments: PATIENT WAS FASTINGPERFORMED BY: RAMp Sports LabCoVivasure MedicalCymwfh5687 [facility] [id number] Information: ADD [id number] AND DRAW FEE 99 9764 (64086) Immature Grans (Abs) 0.0 {x10E3/uL} (Normal) Range: [...] 3.77-5.28 WBC 4.3 {x10E3/uL} (Normal) Range: 4.0-10.5 15-Meb-11610:54 METABOLIC PANEL, COMPREHENSIVE Comments: PATIENT WAS FASTINGPERFORMED BY: LabCoPalisades Medical CenterTlhmon2289 [facility] [id number] (36106) ALT (SGPT) 48 [iU]/L (Abnormal) Range: 0-40 [...] (Abnormal) Range: 65-99 :18 HgA1C , Office (87858) HgA1C , Office 6.1 % (Normal) Range: 4.6 - 7.1 :18 Blood Glucose , Office (48697) Blood Glucose , Office 103 (Normal) 16-Gaw-18883:00 ABDOMEN WITH AND W/O CONTRAST Radiology Report [...] radiologist regarding this report, please call our [id number] line @ Dictated on 03/18/11 1715 by Keaton MANN,NadieTranscribed on 03/22/11 1401 by ITS IMPORTSign by Jeanette Hill MD on 03/22/11 140 Sign by: Jeanette uPgh MD 46-Nhh-140814:29 SERUM CRE & GFR CREAT,SERUM 1.1 mg/dL (Abnormal) Range: 0.6-1.0 09-Wku-29512:00 BRAIN W/WO CONTRAST Radiology Report See Note [...] seen in the right frontal white matter project portfolio analyst ior to themasswithout interval change. The cortical [...] 03/02/11 173 Sign by: Donna Martin MD 49-Opz-24787:00 UPPER EXT. JOINT ONLY(ROUTINE) Radiology Report See [...] on 01/29/111715 Sign by: Aakash Barbosa MD 87-Jga-41933:44 ABDOMEN/PELVIS WITH CONTRAST Radiology Report See Note [...] 02/01/11 1021 Sign by: ALEJANDRO DRUMMOND DO 96-Lnw-548199:57 SINUS/FACIAL BONE Radiology Report See Note (Normal) [...] 01/19/11 1448 Sign by: Misael Hebert MD 84-Woh-12419:00 BRAIN W/WO CONTRAST Radiology Report See Note [...] addition, there is a small region of cxokaoqjbA3rlybjxemyw along the anterior margin of the mass, [...] on 01/19/2011 16:48:58 (ET). Dictated on 01/19/11 7813 by GAYE PLUMMER MD RTranscribed on 01/19/111649 by ITS IMPORTSign by GAYE PEREZ MD on 01/19/111650 Sign by: CHRIS MANNGAYE Alen 40-Zfv-76345:00 BRAIN/HEAD W/WO CONTRAST Radiology Report See Note [...] 01/19/11 1447 Sign by: Misael Hebert MD 03-Cnx-713778:08 BILAT SCRN DIGITAL & CAD Radiology Report [...] CREATININE RATIO Comments: PATIENT NOT FASTINGPERFORMED BY: Bio[employer]70 [facility] [id number] (33861) AND (51959) Microalb/Creat Ratio 1028.4 {mg/g_creat} (Abnormal) Range: 0.0-30.0 Microalbumin, Urine 1341.0 ug/mL (Abnormal) Range: 0.0-17.0 Creatinine, Urine 130.4 mg/dL (Normal) Range: 15.0-278.0 :20 CBC WITH MANUAL DIFF (84591) Comments: PATIENT NOT FASTINGPERFORMED BY: Arkami6370 [facility] [id number] Immature Grans (Abs) 0.0 {x10E3/uL} (Normal) Range: [...] {x10E3/uL} (Normal) Range: 4.0-10.5 09-Jun-20119:20 LIPID PANEL (73410) Comments: PATIENT NOT FASTINGPERFORMED BY: LabCoPalisades Medical CenterBticvr0481 [facility] [id number] LDL/HDL Ratio 0.9 {ratio_units} (Normal) Range: 0.0-3.2 [...] PANEL, COMPREHENSIVE Comments: PATIENT NOT FASTINGPERFORMED BY: LabCoPal[facility]ades Medical CenterClvgek46[address] [facility] [id number] (57396) ALT (SGPT) 28 [iU]/L (Normal) Range: 0-40 [...] (Abnormal) Range: 65-99 :39 HgA1C , Office (05141) HgA1C , Office 6.5 % (Normal) Range: 4.6 - 7.1 :39 Blood Glucose , Office (20201) Blood Glucose , Office 128 (Normal) :19 CBC With Differential/Platelet Comments: PATIENT WAS FASTINGPERFORMED BY: EVE Toto CommunicationsPalisades Medical CenterWmiqqp5967 [facility] [id number] Immature Grans (Abs) 0.0 {x10E3/uL} (Normal) Range: [...] Panel (14) Comments: PATIENT WAS FASTINGPERFORMED BY: Toto CommunicationsPalisades Medical CenterFmbwnh6477 [facility] [id number]; appt 01/11/11 ALT (SGPT) 18 [iU]/L (Normal) [...] Glucose, Serum 113 mg/dL (Abnormal) Range: 65-99 8-Occ-713675:19 Lipid Panel With LDL/HDL Comments: PATIENT WAS FASTINGPERFORMED BY: LabCoPalisades Medical CenterJuhlhl[address] [facility] [id number] Ratio LDL/HDL Ratio 1.0 {ratio_units} Range: 0.0-3.2 [...] 0.800 {uIU/mL} Comments: PATIENT WAS FASTINGPERFORMED BY: Bio[employer] [facility] [id number] 2:19 (Normal) Range: 0.450-4.500 Vitamin D, 25-Hydroxy 44.0 ng/mL (Normal) Comments: PATIENT WAS FASTINGPERFORMED BY: Yhat [facility] [id number] 2:19 Range: 32.0-100.0 Comments: Effective February 22, 2011 Vitamin D, 25-Hydroxy reference intervals will be changing to 30-100. .Recent studies consider the lower li sandra of 32.0 ng/mL to be athreshold for optimal health.Otf HAYES. J Nutr. 2004;135(2):317-22. :54 HgA1C , Office (33938) HgA1C , Office 6.6 % (Normal) Range: 4.6 - 7.1 :54 Blood Glucose , Office (27607) Blood Glucose , Office 134 (Normal) :40 Creatinine Clearance Comments: PERFORMED BY: [employer] Zjdyls4534 [facility] [id number] Information: 10/07@7AM 10/08@3AM Creatinine Clearance 56 mL/min [...] Protein Total, Qn, 24-Hr Comments: PERFORMED BY: [employer] [place] [id number] Urine Prot,24hr calculated 610.5 {mg/24_hr} (Abnormal) Range: 30.0-150.0 Protein,Total,Urine 40.7 mg/dL (Abnormal) Range: 0.0-15.0 :46 Vitamin D Hydroxy (20252) Comments: PATIENT WAS FASTINGPERFORMED BY: Arkami6370 Century Labsblin [place] [id number] Vitamin D, 25-Hydroxy 36.5 ng/mL (Normal) Range: 32.0-100.0 Comments: Recent studies consider the lower limit of 32.0 ng/mL to be athreshold for optimal health.Otf HAYES. J Nutr. 2004;135(2):317-22. :46 METABOLIC PANEL, COMPREHENSIVE Comments: PATIENT WAS FASTINGPERFORMED BY: Ark[employer]6370 Century Labsblin [place] [id number] (13218) ALT (SGPT) 34 [iU]/L (Normal) Range: 0-40 [...] mg/dL (Abnormal) Range: 65-99 :46 LIPID PANEL (98914) Comments: PATIENT WAS FASTINGPERFORMED BY: [facility] [id number] LDL Cholesterol Calc 85 mg/dL (Normal) Range: [...] MANUAL DIFF Comments: PATIENT WAS FASTINGPERFORMED BY: Arkami6370 [employer] [facility] HospitalOANDACarePartners Rehabilitation Hospital [id number] Information: [id number]; appt 10/12/10 (85316) Immature Grans (Abs) 0.0 {x10E3/uL} (Normal) Range: [...] 3.80-5.10 WBC 5.5 {x10E3/uL} (Normal) Range: 4.0-10.5 7-Pgh-087286:07 HgA1C , Office (46414) HgA1C , Office 6.6 % (Normal) Range: 4.6 - 7.1 :07 Blood Glucose , Office (85398) Blood Glucose , Office 114 (Normal) 46-Jvr-887235:00 Creatinine Clearance Comments: PERFORMED BY: [facility]6370 [facility] [id number] Information: 12/31@8AM 01/01@4AM Creatinine Clearance 48 mL/min [...] Creatinine, Serum 1.20 mg/dL (Abnormal) Range: 0.57-1.00 57-Rqd-737958:00 Protein Total, Qn, 24-Hr Comments: PERFORMED BY: LabCoPal[facility] Medical CenterBtddxp4612 [facility] [id number] Urine Prot,24hr calculated 1070.6 {mg/24_hr} (Abnormal) Range: 30.0-150.0 Protein,Total,Urine 79.3 mg/dL (Abnormal) Range: 0.0-15.0 53-Cyv-323112:48 BILAT SCRN DIGITAL & CAD Radiology Report See Note (Normal) Comments: Exam Number: [id number] MAMMOGRAPHY - BILATERAL SCREENING INDICATION:Routine annual screening [...] of attaching a ResultCode to this exam.ADDENDUM: [id number] HPBI/MDS Reported By: ANUPMISAEL 21-Iqk-123415:48 DEXA BONE DENSITY STUDY (HP) Radiology Report See Note (Normal) Comments: Exam Number: [id number] CLINICAL:This is a 69-year-old female patient with postmenopausal screening. EXAMINATION:DUAL ENERGY X-RAY ABSORPTIOMETRY / DEXA. TECHNIQUE:Bone Density Measurements (BMD) of lumb ar spine and bilateral hipswere obtained using a [employer] scanner.. COMPARISON:None. FINDINGS: Lumbar Spine (L1-L4): g/cm2 [...] Osteoporosis Foundation http://www.nof.org Reported By: MISAEL HEBERT 20-Xjl-900176:29 HgA1C , Office (88829) HgA1C , Office 6.5 % (Normal) Range: 4.6 - 7.1 74-Dny-008527:29 Blood Glucose , Office (97951) Blood Glucose , Office 109 (Normal) :05 CBC With Differential/Platelet Comments: PATIENT WAS FASTINGPERFORMED BY: LabCoPalisades Medical CenterKwkpuo4655 [facility] [id number] Immature Grans (Abs) 0.0 {x10E3/uL} (Normal) Range: [...] (14) Comments: PATIENT WAS FASTINGPERFORMED BY: [facility] Gyraeo4990 [facility] [id number] ALT (SGPT) 20 [iU]/L (Normal) Range: 0-40 [...] With LDL/HDL Comments: PATIENT WAS FASTINGPERFORMED BY: [employer] Zuqgmz3647 [facility] [id number] Ratio HDL Cholesterol 54 mg/dL (Normal) Comments: [...] ng/mL (Normal) Comments: PATIENT WAS FASTINGPERFORMED BY: [employer]6370 [facility] [id number] :05 Range: 32.0-100.0 Comments: Recent studies consider the lower limit of 32.0 ng/mL to be athreshold for optimal health.Otf HAYES. J Nutr. 2004;135(2):317-22. 34-Pur-16828:41 SPLEEN (HP) Radiology Report See Note (Normal) Comments: Exam Number: [id number] ULTRASOUND OF THE SPLEEN A goal directed [...] Protein, 0.5 mg/L (Normal) Comments: PERFORMED BY: [employer] Lhmwkr2603 [facility] [id number] 10:54 Quant Range: 0.0-4.9 17-Jun-2009 Hemoglobin A1c 6.3 % (Abnormal) Comments: PERFORMED BY: [employer]6370 [facility] [id number] 10:54 Range: 4.8-5.6 Comments: Increased risk for diabetes: 5.7 - 6.4Diabetes: >6.4Glycemic control for adults with diabetes: <7.0.Please note reference interval change 17-Jun-2009 Sedimentation 4 mm/h (Normal) Comments: PERFORMED BY: [employer]6370 [facility] [place] [id number] 10:54 Rate-Westergren Range: 0-30 17-Jun-2009 Vitamin B12 1372 pg/mL Comments: PERFORMED BY: [employer]70 [place] [id number] 10:54 (Abnormal) Range: 211-911 Comments: Effective July 14, 2009, Vitamin B12 will bechanging to the [place] ECLIA methodology. Thereference interval will be changing to:211 - 946 pg/mL 17-Jun-2009 Vitamin D, 25-Hydroxy 37.7 ng/mL Comments: PERFORMED BY: [employer] [facility] [id number] 10:54 (Normal) Range: 32.0-100.0 Comments: Recent studies consider the lower limit of 32.0 ng/mL to be athreshold for optimal health.Otf HAYES. J Nutr. 2004;135(2):317-22. 71-Lai-446267:34 Vitamin D Hydroxy Comments: PATIENT NOT FASTINGPERFORMED BY: Ark[employer]6370 [facility] [id number] Information: [id number],2ND ORDER NO DRAW F EE (21179) Vitamin D, 25-Hydroxy 48.5 ng/mL (Normal) Range: 30.0-100.0 Comments: Vitamin D deficiency has been defined by the Guild ofMedicine and an Endocrine Society practice guideline as alevel of serum 25-OH vitamin D less than 20 ng/mL (1,2).The Endocrine Society went on to further define vitamin Dinsufficiency as a level between 21 and 29 ng/mL (2).1. IOM (Guild of Medicine). 2010. Dietary reference intakes for calcium and D. [place]: The National Academies Press.2. Mira MF, Rosette LOPEZ, Tommy SWAIN, et al. Evaluation, treatment, and prevention of vitamin D deficiency: an Endocrine Society clinical practice guideline. JCEM. 2010; 96(7):1911-30. :50 HgA1C , Office (71030) HgA1C , Office 6.7 % (Normal) Range: 4.6 - 7.1 :50 Blood Glucose , Office (98165) Blood Glucose , Office 117 (Normal) :12 CBC With Differential/Platelet Comments: PERFORMED BY: [facility]6370 [facility] [id number] Information: 06/10@6AM3/10@330 Hematology Comments: Note: (Normal) Comments: [...] 3.80-5.10 WBC 3.6 {x10E3/uL} (Abnormal) Range: 4.0-10.5 25-Vlp-330918:12 Comp. Metabolic Panel (14) Comments: PERFORMED BY: [facility] Ircmpw8348 [facility] [id number] Alkaline Phosphatase, S 68 [iU]/L (Normal) Range: [...] Glucose, Serum 124 mg/dL (Abnormal) Range: 65-99 15-Jmc-624278:12 Creatinine Clearance Comments: PERFORMED BY: [employer] Qoppsg7625 [facility] [id number] Creatinine Clearance 49 mL/min (Abnormal) Range: 88-128 Comments: The above range is based on 1.73 square meter average body surfacearea. Creatinine, Ur 24hr 800.0 {mg/24_hr} (Normal) Range: 800.0-1800.0 Creatinine, Urine 40.0 mg/dL (Normal) Range: 15.0-278.0 40-Bju-743150:12 Lipid Panel With LDL/HDL Comments: PERFORMED BY: [employer] [facility] [id number] Ratio HDL Cholesterol 61 mg/dL (Normal) Comments: According to ATP-III Guidelines, HDL-C >59 mg/dL is considered anegative risk factor for CHD. LDL Cholesterol Calc 74 mg/dL (Normal) Range: 0-99 LDL/HDL Ratio 1.2 {ratio_units} (Normal) Range: 0.0-3.2 VLDL Cholesterol Cesar 17 mg/dL (Normal) Range: 5-40 Cholesterol, Total 152 mg/dL (Normal) Range: 100-199 Triglycerides 87 mg/dL (Normal) Range: 0-149 80-Zdt-224838:12 Protein Total, Qn, 24-Hr Comments: PERFORMED BY: [employer]6370 [facility] [id number] Urine Prot,24hr calculated 1172.0 {mg/24_hr} Range: 30.0-150.0 (Abnormal) Protein,Total,Urine 58.6 mg/dL (Abnormal) Range: 0.0-15.0 TSH 1.280 {uIU/mL} Comments: PERFORMED BY: T[facility] CommunicationsPalisades Medical CenterZrlmfn2157 [facility] [id number] 1:12 (Normal) Range: 0.450-4.500 9-Pbt-748494:58 HgA1C , Office (63614) HgA1C , Office 6.0 % (Normal) Range: 4.6 - 7.1 4-Xlw-786928:58 Blood Glucose , Office (04213) Blood Glucose , Office 113 (Normal) :03 CBC With Differential/Platelet Comments: PATIENT WAS FASTINGPERFORMED BY: Toto CommunicationsPalisades Medical CenterJqflun2879 [facility] [id number] Baso (Absolute) 0.0 {x10E3/uL} (Normal) Range: 0.0-0.2 [...] Panel (14) Comments: PATIENT WAS FASTINGPERFORMED BY: Toto CommunicationsPalisades Medical CenterJoiiqa4118 [facility] [id number] A/G Ratio 2.0 (Normal) Range: 1.1-2.5 Albumin, [...] Glucose, Serum 116 mg/dL (Abnormal) Range: 65-99 6-Nfd-555566:03 Lipid Panel With LDL/HDL Comments: PATIENT WAS FASTINGPERFORMED BY: LabCoPalisades Medical CenterMlhjdn6597 [facility] [id number] Ratio Cholesterol, Total 167 mg/dL (Normal) Range: [...] ng/mL (Normal) Comments: PATIENT WAS FASTINGPERFORMED BY: LabCoPalisades Medical CenterHdcpgz6245 [facility] [id number] :03 Range: 32.0-100.0 Comments: Recent studies consider the lower limit of 32.0 ng/mL to be athreshold for optimal health.Otf HAYES. J Nutr. 2004;135(2):317-22. 99-Fya-682660:32 Urinalysis, Office (60377) UA - BILIRUBIN Negative (Normal) UA - BLOOD Hemolyzed Trace (Normal) UA - GLUCOSE Negative (Normal) UA - KETONES Negative mg/dL (Normal) UA - LEUKOCYTE ESTERASE Negative (Normal) UA - NITRITE Negative (Normal) UA - PH 6.5 (Normal) UA - PROTEIN 300 mg/dL (Normal) UA - SPECIFIC GRAVITY 1.020 (Normal) URINE UROBILINGN JATINDER TIMED 2 mg/dL (Normal) 6-Wym-108548:19 URINE SETH CULTURE-JATINDER COL Comments: PATIENT NOT FASTINGClinical Information: SRC:UR ADD [id number] PERFORMED BY: [facility] Pahbwu2179 [facility] [id number] COUNT (66406) Result 1 ECV (Normal) Comments: Escherichia coli, [...] report (Normal) Culture,Comprehensiv e 09-Jan-20098:17 Urinalysis, Office (89012) UA - BILIRUBIN Negative (Normal) UA - BLOOD Hemolyzed Large (Normal) UA - GLUCOSE Negative (Normal) UA - KETONES Negative mg/dL (Normal) UA - LEUKOCYTE ESTERASE Moderate (Normal) UA - NITRITE Negative (Normal) UA - PH 7.0 (Normal) UA - PROTEIN 300 mg/dL (Normal) UA - SPECIFIC GRAVITY 1.020 (Normal) URINE UROBILINGN JATINDER TIMED 2 mg/dL (Normal) 3-Obo-564307:05 Comp. Metabolic Panel (14) Comments: PATIENT WAS FASTINGPERFORMED BY: [facility]6370 [facility] [id number] A/G Ratio 1.7 (Normal) Range: 1.1-2.5 Albumin, [...] Panel (7) Comments: PATIENT WAS FASTINGPERFORMED BY: [facility]6370 [facility] [id number] Bilirubin, Direct 0.12 mg/dL (Normal) Range: 0.00-0.40 :05 Lipid Panel With LDL/HDL Comments: PATIENT WAS FASTINGPERFORMED BY: [place] 1018970 [facility] [id number] Ratio Cholesterol, Total 170 mg/dL (Normal) Range: [...] mg/dL (Normal) Comments: PATIENT WAS FASTINGPERFORMED BY: [facility]6370 [facility] [id number] :05 Range: 2.5-4.5 PTH, Intact 19 pg/mL (Normal) Comments: PATIENT WAS FASTINGPERFORMED BY: [facility]6370 [facility] [id number] :05 Range: 15-65 Vitamin D, 25-Hydroxy 38.9 ng/mL (Normal) Comments: PATIENT WAS FASTINGPERFORMED BY: [facility]6370 [facility] [id number] :05 Range: 32.0-100.0 Comments: Recent studies consider the lower limit of 32.0 ng/mL to be athreshold for optimal health.Otf HAYES. J Nutr. 2004;135(2):317-22. 5-Zln-856861:40 HgA1C , Office (22057) HgA1C , Office 6.0 % (Normal) Range: 4.6 - 7.1 :40 Blood Glucose , Office (04434) Blood Glucose , Office 109 (Normal) :42 CBC With Differential/Platelet Comments: PATIENT WAS FASTINGPERFORMED BY: [facility] CenterEztsqp9701 [facility] [id number] Baso (Absolute) 0.0 {x10E3/uL} (Normal) Range: 0.0-0.2 [...] Panel (14) Comments: PATIENT WAS FASTINGPERFORMED BY: [facility] CenterBswrzq9068 [facility] [id number] A/G Ratio 1.6 (Normal) Range: 1.1-2.5 Albumin, [...] Sodium, Serum 140 mmol/L (Normal) Range: 135-145 9-Dhb-709636:09 FECAL OCCULT HGB ASSAY, QUAL, 1-3 SIMULTANEOUS DETERMINATIONS (06633) FECAL OCCULT HGB ASSAY, QUAL, 1-3 SIMULTANEOU neg (Normal) :42 Microscopic Examination Comments: PATIENT WAS FASTINGPERFORMED BY: [facility] CenterWmvtxx6357 [facility] [id number] Bacteria None seen (Normal) Cast Type Hyaline casts (Normal) Casts Present {/lpf} (Abnormal) Epithelial Cells (non renal) 0-10 {/hpf} (Normal) Range: 0 - 10 Mucus Threads Present (Normal) RBC 0-3 {/hpf} (Normal) Range: 0 - 3 WBC 0-5 {/hpf} (Normal) Range: 0 - 5 :42 URINALYSIS W/O MICRO (02972) Comments: PATIENT WAS FASTINGPERFORMED BY: [facility] [id number] Appearance Clear (Normal) Bilirubin Negative (Normal) Glucose Negative (Normal) Ketones Negative (Normal) Microscopic Examination See below: (Normal) Nitrite, Urine Negative (Normal) Occult Blood Negative (Normal) pH 5.0 (Normal) Range: 5.0-7.5 Protein 1+ (Abnormal) Specific [place] 1.013 (Normal) Range: 1.005-1.030 Urine-Color Yellow (Normal) Urobilinogen,Semi-Qn 0.2 mg/dL (Normal) Range: 0.0-1.9 WBC Esterase 1+ (Abnormal) :42 MICROALBUMIN: CREATININE RATIO Comments: PATIENT WAS FASTINGPERFORMED BY: [facility] [id number] ([id number]) AND (15618) Creatinine, Urine 76.1 mg/dL (Normal) Range: 15.0-278.0 Microalb/Creat Ratio 292.1 {ug/mg_creat} (Abnormal) Range: 0.0-30.0 Microalbumin, Urine 222.3 ug/mL (Abnormal) Range: 0.0-17.0 :42 CBC WITH MANUAL DIFF (53297) Comments: PATIENT WAS FASTINGClinical Information: ADD DRAW FEE [id number] ADD J 50274 PERFORMED BY: Scar[facility] HospitalOANDACarePart[facility] [id number] Baso (Absolute) 0.0 {x10E3/uL} (Normal) Range: 0.0-0.2 [...] PANEL, COMPREHENSIVE Comments: PATIENT WAS FASTINGPERFORMED BY: [facility]6370 [facility] [id number] (12082) A/G Ratio 1.8 (Normal) Range: 1.1-2.5 Albumin, [...] Sodium, Serum 141 mmol/L (Normal) Range: 135-145 5-Cqm-785333:23 HgA1C , Office (64531) HgA1C , Office 6.0 % (Normal) Range: 4.6 - 7.1 0-Axq-325889:23 Blood Glucose , Office (27226) Blood Glucose , Office 103 (Normal) 28-She-467435:38 CBC WITH MANUAL DIFF (27363) Comments: PATIENT WAS FASTINGClinical Information: ADD DRAW FEE 309309 ADD J 61056 PERFORMED BY: [facility] CenterCficwt1314 [facility] [id number] Baso (Absolute) 0.0 {x10E3/uL} (Normal) Range: 0.0-0.2 [...] 11.7-15.0 WBC 4.0 {x10E3/uL} (Normal) Range: 4.0-10.5 33-Kba-231524:38 METABOLIC PANEL, COMPREHENSIVE Comments: PATIENT WAS FASTINGPERFORMED BY: [facility] CenterMcjqai5095 [facility] [id number] (63954) A/G Ratio 1.8 (Normal) Range: 1.1-2.5 Albumin, [...] Sodium, Serum 142 mmol/L (Normal) Range: 135-145 94-Ehm-808987:38 HEPATIC FUNCTION PANEL Comments: PATIENT WAS FASTINGPERFORMED BY: [facility] CenterJxfnwg6020 [facility] [id number] (16683) Bilirubin, Direct 0.08 mg/dL (Normal) Range: 0.00-0.40 35-Whd-840838:38 LIPID PANEL (67355) Comments: PATIENT WAS FASTINGPERFORMED BY: [employer] [facility]Co[facility] CenterYaevnu2443 [facility] [id number] Cholesterol, Total 200 mg/dL (Abnormal) Range: 100-199 [...] Cholesterol Cesar 18 mg/dL (Normal) Range: 5-40 7-Thl-186632:36 HgA1C , Office (94390) HgA1C , Office 6.1 % (Normal) Range: 4.6 - 7.1 3-Ruc-427017:36 Blood Glucose , Office (72025) Blood Glucose , Office 98 (Normal) 15-Qnn-554506:33 CBC With Differential/Platelet Comments: PATIENT WAS FASTINGClinical Information: SRC:UR PERFORMED BY: EVE [facility]Co[facility] CenterYeqyfs3587 [facility] [id number] Baso (Absolute) 0.0 {x10E3/uL} (Normal) Range: 0.0-0.2 [...] 11.7-15.0 WBC 4.8 {x10E3/uL} (Normal) Range: 4.0-10.5 27-Xpo-622223:33 Comp. Metabolic Panel (14) Comments: PATIENT WAS FASTINGPERFORMED BY: [facility] CenterZcjiaf4006 [facility] [id number] A/G Ratio 1.6 (Normal) Range: 1.1-2.5 Albumin, [...] Serum 92 mg/dL (Normal) Range: 65-99 If -Bruneian 57 mL/min/1.73 Comments: Note: Persistent reduction for [...] Sodium, Serum 142 mmol/L (Normal) Range: 135-145 23-Vqu-913788:33 Lipid Panel With LDL/HDL Comments: PATIENT WAS FASTINGPERFORMED BY: [facility] Pysjcp9302 [facility] [id number] Ratio Cholesterol, Total 174 mg/dL (Normal) Range: 100-199 HDL Cholesterol 67 mg/dL (Normal) Comments: According to ATP-III Guidelines, HDL-C >59 mg/dL is considered anegative risk factor for CHD. LDL Cholesterol Calc 85 mg/dL (Normal) Range: 0-99 LDL/HDL Ratio 1.3 {ratio_units} (Normal) Range: 0.0-3.2 Triglycerides 110 mg/dL (Normal) Range: 0-149 VLDL Cholesterol Cesar 22 mg/dL (Normal) Range: 5-40 58-Brq-844447:33 Urine Culture,Comprehensive Comments: PATIENT WAS FASTINGPERFORMED BY: [facility]6370 [facility] [id number] Antimicrobial MIHEAD (Normal) Comments: S = Susceptible; [...] Enterococcus. (Normal) Urine Final report (Normal) Culture,Comprehensive 6-Ilc-994883:10 HgA1C , Office (75179) HgA1C , Office 5.9 % (Normal) Range: [...] mL (Normal) URINE CREAT 43.0 mg/dL (Normal) 16-Hxl-82111:03 PROU 24HR 24hr UR PROTEIN 430.0 {mg/day} (Abnormal) UR COLLECT TIME 24.0 {HOURS} (Normal) UR TOTAL VOLUME 2150 mL (Normal) URINE PROTEIN 20.0 mg/dL (Abnormal) 39-Hoa-943529:17 Urine Culture,Comprehensive Comments: Clinical Information: SRC:UR PERFORMED BY: [employer] [facility] [id number] Result 1 CNSNSS (Normal) Comments: Coagulase negative Staphylococcus species, not Staphylococcussaprophyticus.600 Colonies/mLSusceptibility or resistance of staphylococci to oxacillin predictssusceptibility or resistance to (a) other be bb-leldnxnkg-jkudsppqaakxvqroi such as cloxacillin and dicloxacillin, (b) combinationsof a penicillin and a beta-lactamase inhibitor, and(c) anti- staphylococcal cephalosporins. Routine testing of otherp enicillins, beta-lactam/beta-lactamase inhibitor combinations,cephems, and carbapenems is not advised by the CLSI Standards(I004-M11, 2005). S = Susceptible; I = Intermediate; R = Resistant * P = Positive; N = Negative MICS are expressed in micrograms per mL Antibiotic RSLT#1 RSLT#2 RSLT#3 RSLT#4Ciprofloxacin RGentami kristian SLevofloxacin RNitrofurantoin SOxacillin SPenicillin RRifampin STrimethoprim/Sulfa SVancomycin S Urine Final report Culture,Comprehensi (Normal) ve 0-Qlq-601506:53 Metabolic Panel, Basic (86015) Comments: PATIENT NOT FASTINGClinical Information: ADD DRAW FEE 204439 ADD J 56170 PERFORMED BY: [employer] Rfvjsa4634 [place] [facility] [id number] BUN 39 mg/dL (Abnormal) Range: 5-26 BUN/Creatinine Ratio 33 (Abnormal) Range: 8-27 Calcium, Serum 9.8 mg/dL (Normal) Range: 8.5-10.6 Carbon Dioxide, Total 22 mmol/L (Normal) Range: 20-32 Chloride, Serum 103 mmol/L (Normal) Range: 97-108 Creatinine, Serum 1.20 mg/dL (Abnormal) Range: 0.57-1.00 Glom Filt Rate, Est 45 mL/min/1.73 Range: 60-128 (Abnormal) Glucose, Serum 101 mg/dL (Abnormal) Range: 65-99 If -Bruneian 55 mL/min/1.73 Range: 60-128 (Abnormal) Comments: Note: Persistent reduction for 3 months or more in an eGFR<60 mL/min/1.73 m2 defines CKD. Patients with eGFR values>/=60 mL/min/1.73 m2 may also have CKD if evidence of persistentproteinuria is present. Additional information may be found [email or web address].org. Potassium, Serum 5.1 mmol/L (Normal) Range: 3.5-5.2 Sodium, Serum 139 mmol/L (Normal) Range: 135-145 :09 HgA1C , Office (53150) HgA1C , Office 6.1 % (Normal) Range: 4.6 - 7.1 :09 Blood Glucose , Office (73736) Blood Glucose , Office 163 (Normal) 42-Rdf-42092:37 SPINE,LUMBAR (ROUTINE) Radiology Report See Note (Normal) Comments: Exam Number: [id number] MRI LUMBAR SPINE CLINICAL STATEMENTLow back pain [...] foraminal narrowing onboth sides. Reported By: MODESTA CPOE M.D. 31-Dnj-696291:00 [facility] Radiology Report See Note (Normal) Comments: Exam Number: [id number] MAMMOGRAM, BILATERAL SCREENING DIGITAL AND CAD HISTORYRoutine screening. Full field digital images were obtained in mediolateral oblique andcraniocaudal projections. CAD images w ere reviewed. The [facility]. A small metal marker is placed [...] mammograms werealso examined with computer-aided detection software ([employer], [employer] Reported By: DONNA OJEDA M.D. 10-Gbj-479696:59 DEXA BONE DENSITY STUDY (HP) Radiology Report See Note (Normal) Comments: Exam Number: [id number] BONE DENSITOMETRY HISTORYPost menopausal. TECHNIQUE Bone densitometry [...] Report See Note (Normal) Comments: Exam Number: [id number] FIVE VIEW LUMBAR SPINE AP, lateral, both [...] Randm Ur Comments: PATIENT NOT FASTINGPERFORMED BY: [facility] [id number] Creatinine, Urine 46.8 mg/dL (Normal) Microalb/Creat Ratio 712.8 {ug/mg_creat} (Abnormal) Range: 0.0-30.0 Microalbum.,U,Random 333.6 ug/mL (Abnormal) Range: 0.0-17.0 :13 Creatinine Clearance Comments: PATIENT NOT FASTINGClinical Information: HT-5'4'' WT-184 PERFORMED BY: [facility]New [facility] [id number] Creatinine Clearance 40 mL/min (Abnormal) Range: 88-128 Comments: The above range is based on 1.73 square meter average body surfacearea. Creatinine, Serum 1.30 mg/dL (Normal) Range: 0.50-1.50 Creatinine, Ur 24hr 754.8 {mg/24_hr} Range: 800.0-1800.0 (Abnormal) Creatinine, Urine 44.4 mg/dL (Normal) Glom Filt Rate, Est 41 mL/min (Abnormal) Range: 60-128 If -[place]uneian 50 mL/min (Abnormal) Range: 60-128 Comments: Note: Persistent reduction for 3 months or more in an eGFR<60 mL/min/1.73 m2 defines CKD. Patients with eGFR values>/=60 mL/min/1.73 m2 may also have CKD if evidence of persistentproteinuria is present. .Additional information may be found at www.kdoqi.org. 05-Sep-20079:13 Protein Total, Qn, 24-Hr Comments: PATIENT NOT FASTINGPERFORMED BY: [facility] CenterXgeljz5842 [facility] [id number] Urine Protein,Total,Urine 49.0 mg/dL (Abnormal) Range: 0.0-15.0 Prt, 24hr calculated 833.0 {mg/24_hr} (Abnormal) Range: 30.0-150.0 21-Ase-460857:00 CBCD,SMEAR DIFF CELLS COUNTED 100 (Normal) EOS [...] 47-70 WBC 4.3 K/mm3 (Abnormal) Range: 4.4-11.0 76-Vat-344034:00 COMP METABOLIC A/G 1.4 {RATIO} (Normal) Range: [...] T PROT 6.6 g/dL (Normal) Range: 6.4-8.2 19-Psk-683886:00 D BILI 0.06 mg/dL (Normal) Range: 0.00-0.30 94-Asn-566145:00 LIPID CHOL 175 mg/dL (Normal) Comments: <200 [...] mg/dL VLDL 12 mg/dL (Normal) Range: 5-40 43-Yth-712094:00 TSH 0.84 {uIU/mL} (Normal) Range: 0.34-4.82 Plan [...] of skin Planned Observations Vitamin D Hydroxy (37322)Indication: Vitamin D deficiency On: 38-Mpb-885278:25 Request URINALYSIS, W/ MICRO (38907)Indication: Chronic kidney disease, stage 3 On: :25 Request LIPID PANEL (25595)Indication: Mixed hyperlipidemia On: :25 Request CBC W/AUTO DIFF WBC (65979)Indication: Chronic kidney disease, stage 3 On: 23-Bty-528039:25 Request METABOLIC PANEL, COMPREHENSIVE (33779)Indication: Chronic kidney disease, stage 3 On: :25 Request HGB A1C (91762)Indication: Diabetes mellitus type II, controlled On: 73-Idu-052064:24 Request Parathyroid Hormone-related Peptide (PTH-rP) (14363)Indication: Vitamin D deficiency On: 7-Isw-641653:43 Request Comments: send results to Dr. Santana fax: [phone] VITAMIN D, 1, 25-DIHYDROXY (70901)Indication: Vitamin D deficiency On: 4-Dkm-658110:42 Request Comments: send results to Dr. Santana fax: [phone] Clostridium difficile Toxin A+B, EIA (34202)Indication: Chronic diarrhea On: 7-Ckf-263459:36 Request Vitamin D Hydroxy (10960)Indication: Osteopenia On: 0-Pcr-459283:20 Request CBC W/AUTO DIFF WBC (88615)Indication: Hypertension, benign On: 5-Aek-773516:16 Request CALCIFEDIOL (48158)Indication: Chronic kidney disease, stage 3 On: :04 Request Renal function Panel (27035)Indication: Chronic kidney disease, stage 3 On: :04 Request Magnesium (95382)Indication: Chronic kidney disease, stage 3 On: :04 Request MICROALBUMIN: CREATININE RATIO (36222) AND (50247)Indication: Chronic kidney disease, stage 3 On: 03-Aug-20169:04 Request Parathyroid Hormone-related Peptide (PTH-rP) (12367)Indication: Chronic kidney disease, stage 3 On: :04 Request T4, FREE (THYROXINE) (55686)Indication: Cold feeling On: :31 Request TSH (72019)Indication: Cold feeling On: :31 Request PARATHORMONE (30247)Indication: Chronic kidney disease, stage 3 On: :18 Request Comments: copy to Dr. Santana [phone] CALCIFIDIOL (53509) VIT D 25Indication: Chronic kidney disease, stage 3 On: :16 Request Comments: copy to Dr. Santana [phone] MAGNESIUM (02445)Indication: Chronic kidney disease, stage 3 On: :15 Request Comments: copy to Dr. Santana [phone] PROTEIN/CREAT RATIO, URINE (23544)Indication: Chronic kidney disease, stage 3 On: :15 Request Comments: copy to Dr. Santana [phone] LIPID PANEL (12082)Indication: Mixed hyperlipidemia On: :21 Request CBC with auto diff (55908)Indication: Diabetes mellitus type II, controlled On: 64-Lby-081631:20 Request METABOLIC PANEL, COMPREHENSIVE (40667)Indication: Diabetes mellitus type II, controlled On: 29-Ppy-339396:20 Request HGB A1C (71284)Indication: Diabetes mellitus type II, controlled On: 25-Vlt-210304:10 Request Vitamin D Hydroxy (59267)Indication: Osteopenia On: 56-Zer-915475:08 Request TSH (THYROID STIMULATING HORMONE) (46511)Indication: Depression On: 80-Sft-214569:06 Request LIPID PANEL (70724)Indication: Other and unspecified hyperlipidemia On: 33-Nnz-811394:06 Request CBC with auto diff (84387)Indication: Diabetes mellitus type II, controlled On: 90-Oxj-695101:06 Request METABOLIC PANEL, COMPREHENSIVE (64737)Indication: Diabetes mellitus type II, controlled On: 57-Zqh-738669:06 Request CREATININE CLEARANCE (13836)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 On: 9-Tne-073723:38 Request Total Protein,24 Hour Urine (55361)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 On: 5-Mhx-699360:38 Request CBC W/AUTO DIFF WBC (87121)Indication: Diabetes mellitus type II, controlled On: 83-Bup-699529:11 Request HgA1C , Office (85632)Indication: Diabetes mellitus type II, controlled On: 53-Ixg-297899:23 Request CULTURE, SPUTUM (48792)Indication: Cough On: 38-Lzs-110951:47 Request HEPATIC FUNCTION PANEL (52195)Indication: Elevated LFTs On: 13-Vju-55063:24 Request CREATININE CLEARANCE (42682)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 On: :33 Request 24 hour urine for Protein (48581)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 On: :33 Request CBC WITH MANUAL DIFF (28585)Indication: Diabetes mellitus type II, controlled On: :29 Request METABOLIC PANEL, COMPREHENSIVE (09058)Indication: Diabetes mellitus type II, controlled On: :29 Request LIPID PANEL (57000)Indication: Mixed hyperlipidemia On: :29 Request CREATININE CLEARANCE (24399)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 On: 8-Cqt-897931:45 Request 24 hour urine for Protein (39954)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 On: 4-Brz-035882:45 Request CREATININE CLEARANCE (06350)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 On: 36-Yfs-506371:57 Request 24 hour urine for Protein (32908)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 On: 74-Qzg-616629:57 Request METABOLIC PANEL, COMPREHENSIVE (73258)Indication: Hypertension, benign On: 12-Jnc-78455:32 Request LIPID PANEL (06472)Indication: Mixed hyperlipidemia On: 34-Vqm-08514:32 Request C-REACTIVE PROTEIN (65995)Indication: Fatigue On: :24 Request SED RATE ERYTHROCYTE (59998)Indication: Headache On: :24 Request VITAMIN B-12 (CYANOCOBALAMIN) (03870)Indication: Fatigue On: 35-Mut-17110:24 Request LIPID PANEL (35492)Indication: Mixed hyperlipidemia On: :41 Request CBC WITH MANUAL DIFF (90325)Indication: Hypertension, benign On: :41 Request METABOLIC PANEL, COMPREHENSIVE (68314)Indication: Hypertension, benign On: 8-Gha-836481:41 Request CREATININE CLEARANCE (88979)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 On: 4-Dvm-455222:34 Request 24 hour urine for Protein (20421)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 On: 1-Xje-407651:34 Request LIPID PANEL (37762)Indication: Mixed hyperlipidemia On: :22 Request HEPATIC FUNCTION PANEL (01428)Indication: Mixed hyperlipidemia On: :22 Request Vitamin D Hydroxy (66175)Indication: Hypercalcemia On: :22 Request PHOSPHORUS (59996)Indication: Hypercalcemia On: : Request PARATHORMONE (68207)Indication: Hypercalcemia On: :22 Request METABOLIC PANEL, COMPREHENSIVE (59692)Indication: Hypercalcemia On: :22 Request CBC WITH MANUAL DIFF (98814)Indication: fsgs On: :58 Request LIPID PANEL (55254)Indication: Mixed hyperlipidemia On: :58 Request METABOLIC PANEL, COMPREHENSIVE (64539)Indication: Hypertension, benign On: :58 Request Blood Glucose , Office (43053)Indication: Diabetes mellitus type II, controlled On: 3-Gkt-649642:10 Request TSH (29115)Indication: Diabetes mellitus type II, controlled On: 54-Rcp-505760:51 Request METABOLIC PANEL, COMPREHENSIVE (16074)Indication: Diabetes mellitus type II, controlled On: 78-Ocp-016350:51 Request CBC WITH MANUAL DIFF (75879)Indication: Diabetes mellitus type II, controlled On: 69-Tep-722504:51 Request MICROALBUMIN: CREATININE RATIO (59824) AND (96410)Indication: Diabetes mellitus type II, controlled On: 38-Qan-153303:51 Request HEPATIC FUNCTION PANEL (44064)Indication: Other and unspecified hyperlipidemia On: 99-Iqf-373135:51 Request LIPID PANEL (90393)Indication: Other and unspecified hyperlipidemia On: 45-Ked-894264:51 Request HgA1C , Office (01085)Indication: Diabetes mellitus type II, controlled On: 62-Etk-193555:37 Request Blood Glucose , Office (80902)Indication: Diabetes mellitus type II, controlled On: 70-Eqh-588193:37 Request Planned Encounters Medical; [facility] 3 Month FU - On: 22-Mar-2018 11:00 [facility] Fast DO, Chaparrita A Fast DO, Chaparrita A Planned Procedures DRAIN/INJECT MAJOR JOINT On: 31-Jan-2018 Intent OR BURSA ()By: Comments: Lot#[id number]:2-38-47Vckbf:intra articular Site given:left knee Given By: Dr. Singh ABN signed Keri Singh MD DRAIN/INJECT MAJOR JOINT On: 24-Jan-2018 Intent OR BURSA ()By: Comments: Lot#[id number]: 5-06-39Lgowq:intra artciular Site given:left knee Given By: Dr. Singh ABN signed Euflexxa Keri Singh MD Echo CompleteBy: Fast DO, On: 16-Dec-2017 Intent Chaparrita A Fast DO, Chaparrita A Flu Vaccine On: 16-Dec-2017 Intent (Quadrivalent) 49353Gt: Comments: Lot: #[id number]: 10/01/18Site: L dltd, IMDose prefilled syringegiven by: Jamie reviewed and ABN signed Fast DO, Chaparrita A Fast DO, Chaparrita A Kenalog Injection, 10 mgm On: 03-Oct-2017 Intent (J3301)By: Francisco MANN, Comments: lot: [id number]: 11/20site/route: L knee Keri Alonzo Cartoid DopplerBy: Fast On: 12-Sep-2017 Intent DO, Chaparrita A Fast DO, Comments: november Chaparrita A SCREENING DIGITAL On: 12-Sep-2017 Intent TOMOSYNTHESIS OF BREAST Comments: due november 02 (61642)By: Fast DO, Chaparrita A Fast DO, Chaparrita A Kenalog Injection, 10 mgm On: 06-Jun-2017 Intent (J3301)By: Francisco MANN, Comments: bupivacacine 0.5% [id number] exp 09-20 kenalog 40 mg injected in. [id number] 07-21 Keri Alonzo MRI OF BRAIN WITH AND On: 06-Jun-2017 Intent WITHOUT CONTRAST (57694)By: Fast DO, Chaparrita A Fast DO, Chaparrita A ELECTROCARDIOGRAM, On: 06-Jun-2017 Intent COMPLETE (ECG) (21357)By: Comments: ekg showed normal sinus rhythym, normal axis, no acute st/t wave changes Fast DO, Chaparrita A Fast DO, Chaparrita A INFUSION, NORMAL SALINE On: 10-May-2017 Intent SOLUTION , 1000 CC Comments: 2 liters total (Special Coverage Instructions Apply. See [facility]: 2048) (J7030)By: Fast DO, Chaparrita A Fast DO, Chaparrita A INFUSION, NORMAL SALINE On: 10-May-2017 Intent SOLUTION , 1000 CC Comments: lot:[id number]:IV left anticub dose:1000ml given by:eliazar Araya LPN (Special Coverage Instructions Apply. See [facility]: 2048) (J7030)By: Fast DO, Chaparrita A Fast DO, Chaparrita A Radiology - Chest- PA and On: 05-May-2017 Intent LatBy: Keri Singh MD Aerosol Treatment On: 05-May-2017 Intent ([id number])By: Keri Singh MD Radiology - ChestBy: On: 05-May-2017 Intent Keri Singh MD Comments: call wet read DRAIN/INJECT MAJOR JOINT On: 28-Feb-2017 Intent OR BURSA ()By: Comments: 1 cc Kenelog #[id number] cc Marcaine #[id number] Keri Singh MD Kenalog Injection, 10 mgm On: 28-Feb-2017 Intent ([id number])By: Keri Singh MD ELECTROCARDIOGRAM, On: 10-Jan-2017 Intent COMPLETE (ECG) ([id number])By: Comments: ekg showed normal sinus rhythym, normal axis, no acute st/t wave changes Fast DO, Chaparrita A Fast DO, Chaparrita A Flu Vaccine On: 27-Dec-2016 Intent (Quadrivalent) [id number]: SHONDA Andrade DRAIN/INJECT MAJOR JOINT On: 20-Aug-2016 Intent OR BURSA ()By: Keri Singh MD DRAIN/INJECT MAJOR JOINT On: 13-Aug-2016 Intent OR BURSA ()By: Comments: lot: [id number]:intra articular dose:2ml given by:Dr. Francisco Araya LPN injection #3 SHONDA Andrade DOPPLER ULTRASOUND OF On: 10-Aug-2016 Intent RIGHT CAROTID ARTERY Comments: end october ([id number])By: Fast DO, Chaparrita A Fast DO, Chaparrita A DEXA SCAN AXIAL SKELETON On: 10-Aug-2016 Intent ([id number])By: Fast DO, Chaparrita Comments: end october A Fast DO, Chaparrita A SCREENING DIGITAL On: 10-Aug-2016 Intent TOMOSYNTHESIS OF BREAST Comments: end october ([id number])By: Fast DO, Chaparrita A Fast DO, Chaparrita A DRAIN/INJECT MAJOR JOINT On: 06-Aug-2016 Intent OR BURSA ()By: Keri Singh MD DRAIN/INJECT INTERMED On: 06-Aug-2016 Intent JOINT/BURSA ()By: Comments: lot:[id number]:left knee dose:2mlgiven by:Dr. Singh ABN signedER, TECHNICAL SPECIALIST CYTOGENETICS injection number 2 SHONDA Andrade Venous Doppler - LeftBy: On: 03-Aug-2016 Intent Fast DO, Chaparrita A Fast DO, Comments: This is set up for August 05 at 11am- spoke with Rina in cv. Chaparrita A DRAIN/INJECT INTERMED On: 30-Jul-2016 Intent JOINT/BURSA ()By: Comments: lot:[id number]:intra articular left knee dose: 2ml given by: Dr. Singh ABN signedER, TECHNICAL SPECIALIST CYTOGENETICS injection #1 Keri Singh MD Radiology - Knee - On: 26-May-2016 Intent LeftBy: Fast DO, Chaparrita A Fast DO, Chaparrita A Flu Vaccine On: 27-Jan-2016 Intent (Quadrivalent) [id number]: Comments: Lot #:[id number] date:10/01/16mount given:0.5mlRoute: IMSite given: left deltoidGiven by: CARMELINA Hook Fast DO, Chaparrita A Fast DO, Chaparrita A ADMINISTRATION OF On: 27-Jan-2016 Intent INFLUENZA VIRUS VACCINE ([id number])By: Fast DO, Chaparrita A Fast DO, Chaparrita A DOPPLER ULTRASOUND OF On: 22-Oct-2015 Intent RIGHT CAROTID ARTERY ([id number])By: Fast DO, Chaparrita A Fast DO, Chaparrita A MAMMOGRAM, SCREENING, On: 22-Oct-2015 Intent BOTH BREAST ([id number])By: Fast DO, Chaparrita A Fast DO, Chaparrita A Ultrasound - RenalBy: On: 14-Jul-2015 Intent Fast DO, Chaparrita A Fast DO, Chaparrita A Radiology - Knee - Left - On: 11-Mar-2015 Intent Weight BearingBy: Fast DO, Chaparrita A Fast DO, Chaparrita A Radiology - Knee - Right On: 11-Mar-2015 Intent - Weight BearingBy: Fast DO, Chaparrita A Fast DO, Chaparrita A Flu Vaccine On: 11-Feb-2015 Intent (Quadrivalent) [id number]: Fast DO, Chaparrita A Fast DO, Chaparrita A EKG ([id number])By: Ambrocio WOLFF, On: 05-Nov-2014 Intent Chaparrita A Fast DO, Chaparrita A Comments: ekg showed normal sinus rhythym, normal axis, no acute st/t wave changes left axis DRAIN/INJECT SMALL JOINT On: 07-Oct-2014 Intent OR BURSA ()By: Francisco MANN, Keri Alonzo MAMMOGRAM, SCREENING, On: 02-Aug-2014 Intent BOTH BREAST ([id number])By: Comments: september Fast DO, Chaparrita A Fast DO, Chaparrita A Cartoid DopplerBy: Fast On: 02-Aug-2014 Intent DO, Chaparrita A Fast DO, Chaparrita A DEXA SCAN AXIAL SKELETON On: 09-Apr-2014 Intent ([id number])By: Ambrocio DO, Chaparrita A Fast DO, Chaparrita A Prevnar 13 ([id number])By: On: 30-Jan-2014 Intent Fast DO, Chaparrita A Fast DO, Comments: Lot:[id number]:05/20Dose:0.5Route:imSite:l armGiven By:Jarred signed Chaparrita A FLU VAC, SPLIT, >3 YEARS, On: 16-Jan-2014 Intent INTRAMUSC ([id number])By: Ambrocio Comments: Lot #:[id number] date:12/2015Amount given:0.5mlRoute: IMSite given: left deltoidGiven by: CARMELINA Hook DO, Chaparrita A Fast DO, Chaparrita A ADMINISTRATION OF On: 16-Jan-2014 Intent INFLUENZA VIRUS VACCINE ([id number])By: Ambrocio WOLFF, Chaparrita A Fast DO, Chaparrita A EKG ([id number])By: Ambrocio WOLFF, On: 17-Oct-2013 Intent Chaparrita A Fast DO, Chaparrita A Comments: ekg showed normal sinus rhythym, left axis, no acute st/t wave changes Radiology - Chest- PA and On: 17-Sep-2013 Intent LatBy: Fast DO, Chaparrita A Fast DO, Chaparrita A Aerosol Treatment On: 17-Sep-2013 Intent ([id number])By: Fast DO, Chaparrita A Fast DO, Chaparrita A MRI - BrainBy: Fast DO, On: 22-Jul-2013 Intent Chaparrita A Fast DO, Chaparrita A Cartoid DopplerBy: Fast On: 20-Jul-2013 Intent DO, Chaparrita A Fast DO, Chaparrita A MAMMOGRAM, SCREENING, On: 20-Jul-2013 Intent BOTH BREASTS ([id number])By: Fast DO, Chaparrita A Fast DO, Chaparrita A Eprescribed prescriptions On: 20-Jul-2013 Intent ([id number])By: Fast DO, Chaparrita A Fast DO, Chaparrita A Eprescribed prescriptions On: 02-Feb-2013 Intent (G8553)By: Марина Concepcion FLU VAC, SPLIT, >3 YEARS, On: 03-Jan-2013 Intent INTRAMUSC ([id number])By: Comments: Lot #:[id number] date:mount given:0.5mlRoute: IMSite given: L dltdVIS and ABN signedGiven by: CARMELINA Hook Jennifer ADMINISTRATION OF On: 03-Jan-2013 Intent INFLUENZA VIRUS VACCINE (G0008)By: Марина Concepcion CT - Abdomen & Pelvis (IV On: 17-Oct-2012 Intent Contrast Needed)By: Ambrocio Comments: patient will be calling to set up DO, Chaparrita A Fast DO, Chaparrita A Eprescribed prescriptions On: 10-Oct-2012 Intent (G8553)By: Марина Concepcion Ear Irrigation On: 13-Jun-2012 Intent ([id number])By: Ivy Peter Comments: Ear Irrigation performed on: right earAmount/color removed cerumen: light brown, small amount removedOUtcome:Pt toleratedUsed wax curettes Wax Currettes ([id number])By: On: 13-Jun-2012 Intent Ivy Peter PNEUM VAC ADLT/IMUMNOSPR, On: 13-Jun-2012 Intent SBC/INTRM ([id number])By: Ambrocio Comments: Lot:[id number]:09/09/13Dose:0.5mLRoute:IMSite:L armGiven By:BHUMI signed DO, Chaparrita A Fast DO, Chaparrita A EKG ([id number])By: Ambrocio DO, On: 13-Jun-2012 Intent Chaparrita A Fast DO, Chaparrita A Comments: ekg showed normal sinus rhythym, normal axis, no acute st/t wave changes MRI - BrainBy: Fast DO, On: 13-Jun-2012 Intent Chaparrita A Fast DO, Chaparrita A Comments: july ADMINISTRATION OF On: 13-Jun-2012 Intent PNEUMOCOCCAL VACCINE (G0009)By: Fast DO, Chaparrita A Fast DO, Chaparrita A Eprescribed prescriptions On: 13-Jun-2012 Intent (G8553)By: Марина Concepcion MAMMOGRAM, SCREENING, On: 28-Dec-2011 Intent BOTH BREASTS ([id number])By: Fast DO, Chaparrita A Fast DO, Chaparrita A DXA, BONE DENSITY, AXIAL On: 28-Dec-2011 Intent SKELETON ([id number])By: Fast DO, Chaparrita A Fast DO, Chaparrita A MRI - BrainBy: Fast DO, On: 28-Dec-2011 Intent Chaparrita A Fast DO, Chaparrita A Comments: end of jan Cartoid DopplerBy: Fast On: 28-Dec-2011 Intent DO, Chaparrita A Fast DO, Comments: jan Chaparrita A Ultrasound - PelvisBy: On: 28-Dec-2011 Intent Fast DO, Chaparrita A Fast DO, Chaparrita A FLU VAC, SPLIT, >3 YEARS, On: 28-Dec-2011 Intent INTRAMUSC ([id number])By: Comments: Lot #:[id number] date:mount given:0.5mlRoute: IMSite given: left deltoidGiven by: CARMELINA Hook Jennifer ADMINISTRATION OF On: 28-Dec-2011 Intent INFLUENZA VIRUS VACCINE (G0008)By: Марина Concepcion Aerosol Treatment On: 30-Nov-2011 Intent ([id number])By: Johanna Chang CNP CT - Abdomen & PelvisBy: On: 21-Sep-2011 Intent Fast DO, Chaparrita A Fast DO, Comments: with special cuts through the kidney- october Chaparrita A EKG ([id number])By: Jamey, On: 15-Jun-2011 Intent Марина Comments: ekg showed normal sinus rhythym, normal axis, no acute st/t wave changes MRI - BrainBy: Fast DO, On: 15-Jun-2011 Intent Chaparrita A Fast DO, Chaparrita A Comments: july MRI - Other (IV Contrast On: 17-Mar-2011 Intent Needed)By: Ashley Ordaz Comments: Kidney MRI - Brain (IV Contrast On: 18-Feb-2011 Intent Needed)By: Ambrocio WOLFF Chaparrita Comments: 6 week MRI Brain follow up per Dr. Ambrocio Baker Fast DO, Chaparrita A MRI - Shoulder(s) - On: 18-Feb-2011 Intent LeftBy: Keri Singh MD Radiology - Shoulder - On: 17-Feb-2011 Intent LeftBy: Fast DO, Chaparrita A Comments: call wet read to Dr. Francisco Albrecht DO, Chaparrita A CT - Chest (IV Contrast On: 26-Jan-2011 Intent Needed)By: Марина Concepcion CT - Abdomen & Pelvis (IV On: 26-Jan-2011 Intent Contrast Needed)By: Марина Concepcion MRI - Brain (IV Contrast On: 19-Jan-2011 Intent Needed)By: Chaparrita Albrecht DO Comments: with and without contrast A Fast DO, Chaparrita A CT - Brain/Head (IV On: 19-Jan-2011 Intent Contrast Needed)By: Ambrocio Comments: Call results to Dr. Albrecht @ [phone] as soon as resulted please. DO, Chaparrita A Fast DO, Chaparrita A Eprescribed prescriptions On: 11-Jan-2011 Intent (G8553)By: Ambrocio DO, Chaparrita A Fast DO, Chaparrita A MAMMOGRAM, SCREENING, On: 11-Jan-2011 Intent BOTH BREASTS ([id number])By: Fast DO, Chaparrita A Fast DO, Chaparrita A CT - Sinuses CompleteBy: On: 11-Jan-2011 Intent Fast DO, Chaparrita A Fast DO, Chaparrita A Cartoid DopplerBy: Fast On: 11-Jan-2011 Intent DO, Chaparrita A Fast DO, Chaparrita A ADMINISTRATION OF On: 11-Jan-2011 Intent INFLUENZA VIRUS VACCINE (G0008)By: Марина Concepcion FLU VAC, SPLIT, >3 YEARS, On: 11-Jan-2011 Intent INTRAMUSC ([id number])By: Марина Concepcion Eprescribed prescriptions On: 12-Oct-2010 Intent (G8553)By: Fast DO, Chaparrita A Fast DO, Chaparrita A Renal DopplerBy: Fast DO, On: 12-Oct-2010 Intent Chaaprrita A Fast DO, Chaparrita A Cartoid DopplerBy: Fast On: 12-Oct-2010 Intent DO, Chaparrita A Fast DO, Comments: dec Chaparrita A TDAP VACCINE >7 IM On: 13-May-2010 Intent ([id number])By: Rivka MENDEZ, Comments: Lot #[id number]-0/25/13Site-left deltoidgiven by:TIFFANY Malik EKG ([id number])By: Jamey, On: 13-May-2010 Intent Марина Comments: ekg showed normal sinus rhythym, normal axis, no acute st/t wave changes Aerosol Treatment On: 22-Dec-2009 Intent ([id number])By: Johanna Chang CNP Cartoid DopplerBy: Fast On: 01-Dec-2009 Intent DO, Chaparrita A Fast DO, Chaparrita A MAMMOGRAM, SCREENING, On: 01-Dec-2009 Intent BOTH BREASTS ([id number])By: Fast DO, Chaparrita A Fast DO, Chaparrita A DXA, BONE DENSITY, AXIAL On: 01-Dec-2009 Intent SKELETON ([id number])By: Fast DO, Chaparrita A Fast DO, Chaparrita A Ultrasound - SpleenBy: On: 17-Jun-2009 Intent Fast DO, Chaparrita A Fast DO, Chaparrita A EKG ([id number])By: Jamey, On: 10-Mar-2009 Intent Марина Comments: ekg showed normal sinus rhythym, normal axis, no acute st/t wave changes FLU VAC, SPLIT, >3 YEARS, On: 09-Jan-2009 Intent INTRAMUSC ([id number])By: Comments: Lot #[id number]-2/2010Site-left deltoidDose0.5mlgiven by Stacy Street LPN ADMINISTRATION OF On: 09-Jan-2009 Intent INFLUENZA VIRUS VACCINE (G0008)By: Stacy Jorge MAMMOGRAM, SCREENING, On: 04-Dec-2008 Intent BOTH BREASTS ([id number])By: Fast DO, Chaparrita A Fast DO, Chaparrita A MAMMOGRAM, SCREENING, On: 03-Sep-2008 Intent BOTH BREASTS ([id number])By: Fast DO, Chaparrita A Fast DO, Chaparrita A FLU VAC, SPLIT, >3 YEARS, On: 16-Jan-2008 Intent INTRAMUSC (58891)By: Gilmer Comments: Lot #: [id number] date: 09/10Amount given: 0.5 mlRoute: IMSite given: Left deltoidGiven by: Olivia Bell LPN RN, Janet ADMINISTRATION OF On: 16-Jan-2008 Intent INFLUENZA VIRUS VACCINE (G0008)By: Janet Scherer RN EKG ([id number])By: Ambrocio DO, On: 29-Aug-2007 Intent Chaparrita A Fast DO, Chaparrita A Comments: done km ADMINISTRATION OF On: 29-Aug-2007 Intent PNEUMOCOCCAL VACCINE (G0009)By: Fast DO, Chaparrita A Fast DO, Chaparrita A PNEUM VAC ADLT/IMUMNOSPR, On: 29-Aug-2007 Intent SBC/INTRM ([id number])By: Ambrocio Comments: 0.5cc given im lt arm [id number] exp 02-13-08 DO, Chaparrita A Fast DO, Chaparrita A DXA, BONE DENSITY, AXIAL On: 29-Aug-2007 Intent SKELETON (28426)By: Fast DO, Chaparrita A Fast DO, Chaparrita A MAMMOGRAM, SCREENING, On: 29-Aug-2007 Intent BOTH BREASTS ([id number])By: Fast DO, Chaparrita A Fast DO, Hcaparrita A Planned Medications INFUSION, NORMAL SALINE SOLUTION [...] Indication: Hypertension, benign Encounters Office Visit On: 31-Jan-2018 9:02 Encounter Reason: [...] new people and be involved in the [facility] 0 bps are good and sugar looking [...] medical issues: she has been working with [employer] and trying to work on that- she got rid of respiratory infection but was sick for weeks and was on pred so her sugar up and chol up a bit- trying to add protein shakes drink more water- she is starting back at [facility] [place]- diarrhea resolved- we did talk about [...] that she had episode where went to [place] and she couldnt remember where she was- and happened one other time where she didnt recognize the roads- sister had alzheimer s- weight down because was sick- but coming back up- she hasnt done counseling with hospice has been thru before- she lonely- not necessarily unhappy- she doing self help she is singing with [facility]- -rodriguez gars are all in low 100s-130- going to [place] for a month next monthEncounter Diagnosis: Nonsmoker, [...] Eddie and bp is good she joined [employer] sugar up bit doi ng ice cream-the bone density reviewed little thinner she not exercising routienly until just recent at [place] and sees kidney doc next week and [...] Meningioma (Renamed from ABNRM RESULT, FUNCTION STUDY, BRAIN/BUSINESS SERVICES ANALYST NEC (794.09)) [facility] [...] Meningioma (Renamed from ABNRM RESULT, FUNCTION STUDY, BRAIN/BUSINESS SERVICES ANALYST NEC (794.09)), Diabetes, Type II, controlled [...] cant take byetta due [facility]- - takes ??lorazepam 1-2 times a week [...] Meningioma (Renamed from ABNRM RESULT, FUNCTION STUDY, BRAIN/BUSINESS SERVICES ANALYST NEC (794.09)), Colon Polyp [facility] [...] Meningioma (Renamed from ABNRM RESULT, FUNCTION STUDY, BRAIN/BUSINESS SERVICES ANALYST NEC (794.09)), OCCLUSION AND STENOSIS OF [...] Meningioma (Renamed from ABNRM RESULT, FUNCTION STUDY, BRAIN/BUSINESS SERVICES ANALYST NEC (794.09)), Chronic glomerulonephritis with lesion [...] Meningioma (Renamed from ABNRM RESULT, FUNCTION STUDY, BRAIN/BUSINESS SERVICES ANALYST NEC (794.09)), Other and unspecified hyperlipidemia [...] Meningioma (Renamed from ABNRM RESULT, FUNCTION STUDY, BRAIN/BUSINESS SERVICES ANALYST NEC (794.09)) [facility] [...] Meningioma (Renamed from ABNRM RESULT, FUNCTION STUDY, BRAIN/BUSINESS SERVICES ANALYST NEC (794.09)), Gerd (530.81), Hyperlipidemia, Unspecified [...] Meningioma (Renamed from ABNRM RESULT, FUNCTION STUDY, BRAIN/BUSINESS SERVICES ANALYST NEC (794.09)), Hypertension,benign(401.1), OCCLUSION AND STENOSIS [...] Meningioma (Renamed from ABNRM RESULT, FUNCTION STUDY, BRAIN/BUSINESS SERVICES ANALYST NEC (794.09)), Diabetes, Type II, controlled [...] Meningioma (Renamed from ABNRM RESULT, FUNCTION STUDY, BRAIN/BUSINESS SERVICES ANALYST NEC (794.09)), Hypertension,benign(401.1), Osteopenia (733.90), Depression [...] weight down 23 pounds- and trying joined [employer]- she feels well - she increased celexa [...] Meningioma (Renamed from ABNRM RESULT, FUNCTION STUDY, BRAIN/BUSINESS SERVICES ANALYST NEC (794.09)), Chronic glomerulonephritis with lesion [...] Meningioma (Renamed from ABNRM RESULT, FUNCTION STUDY, BRAIN/BUSINESS SERVICES ANALYST NEC (794.09)) End: 26-Jan-2011 16:53 [facility] Office Visit On: 19-Jan-2011 14:30 Encounter Diagnosis: brain tumor End: 21-Sep-2011 8:09 [facility] Phone Encounter On: 19-Jan-2011 13:41 Encounter Diagnosis: ABNRM RESULT, FUNCTION STUDY, BRAIN/BUSINESS SERVICES ANALYST NEC (794.09) End: 19-Jan-2011 13:44 [facility] [...] Follow up for chronic medical issues: the katey is not working -even two of them- [...] WITH RADICULOPATHY (724.4) [facility] Payers MedicareAARP/[employer]ALTHCAREGAGAN ALBERT; a guarantor
--- OUTSIDE RECORDS SUMMARY | 2018-06-25 22:10 | XMS RPT_ITS | Continuity of Care Document ---
:1940 Author Organization [facility] Address [address] [place] [address] Phone Care Team Providers Name Role Phone [...] Knee pain, unspecified laterality (719.46) Comments: Valorie:lot: [id number]: 09/20site/route: L knee Status: Active Leg pain, [...] from Need for immunization against influenza) (Z23, V0.) Comments: Lot #:[id number] date:09/19/2017Amount given:0.5mlRoute: IMSite given:L [...] spray daily for 0 days Quantity: 1 {[place]} Refills: 0 Ordered:04-May-2016 SHONDA Andrade Start : [...] and dispense 8 ounes TOTAL mixed solutionCal [id number] if questions SPECTAZOLE, 1% (External Cream) 1 [...] End : 11-Feb-2015 Discontinued Comments:th[age], called to [facility] 08-30-14 erussell Allergies and Adverse Reactions [...] Meningioma (Renamed from ABNRM RESULT, FUNCTION STUDY, BRAIN/OBSTETRICIAN NEC) (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 2016 right Cholecystectomy Completed lumbar dzfzza==0667 Completed Tonsillectomy Completed Date Value Details 19-Dec-2017 Echocardiogram Complete Result: Comments: See Note; NOTES: [facility] [address] [place] [address] Echo Complete 12/19/17 0800 MR#: [id number] Acct: [id number] Name: CLARENCE ALBERT ep #: [id number] : 1940 77 From: Chuckie Cormier MD Attending Dr: Chaparrita Albrecht DO Status: REG CLI Ordering Dr: Chaparrita Albrecht DO Date: 12/19/17 Location: [facility] Sex: F C Admitted: Reason For Study: [...] Dictated: 12/19/17 0800 Date Transcribed: 12/19/17 1022 Community Support Professional: Signed 07-Dec-2017 Carotid Duplex Ultrasound Result: Comments: See Note; NOTES: [facility] [address] [place] [address] Carotid Duplex Ultrasound 12/06/17 0901 MR#: [id number] Acct: [id number] Name: CLARENCE WHITTINGTON Rep #: [id number] : 1940 77 From: Anurag Loya MD [...] the left vertebral artery. Procedure Carotid Duplex 78097. Exam performed in department. Interpretation Summary Mild (<50%) stenosis right extracranial internal carotid. Mild (<50%) stenosis left extracranial internal carotid. Flow within the vertebral arteries is antegrade bilaterally. __ __ Ordering Physician: Chaparrita Albrecht Performed By: Margot Benton RVT and Student 12/07/17 0809 Date Anurag Loya MD CC: Chaparrita Albrecht DO Date Dictated: 12/06/17900 Date Transcribed: 12/07/17808 Community Support Professional: Signed 06-Dec-2017 SCREENING MAMM (CAD), BILAT Result: Comments: See Note; NOTES: [facility] Imaging Services [address] [place] [address] SCREENING MAMM (CAD), BILAT MR#: [id number] Acct: [id number] Name: CLARENCE ALBERT Rep #: [id number] : 1940 F 77 From: Misael Hebert MD PCP: Chaparrita Albrecht DO Status: REG CLI Study: SCREENING MAMM (CAD), BILAT Date of Exam: 12/06/17 Exam# [id number] Ordering Dr: Chaparrita Albrecht DO MAMM OGRAPHY [...] delay biopsy of a clinically suspicious abnormality. [id number] Electronically Signed: Misael Hebert MD at 15:31 EDT Tel [phone], rvice support , CC: Chaparrita Albrecht DO Community Support Professional: Signed 10-Jun-2017 Brain W/WO Contrast Result: Comments: See Note; NOTES: [facility] Imaging Services [address] [place] [address] Brain W/WO Contrast MR#: [id number] Acct: [id number] Name: CLARENCE ALBERT Rep #: [id number] : 1940 F 77 From: Laya Montilla MD PCP: Chaparrita Albrecht DO Status: REG CLI Study: Brain W/WO Contrast Date of Exam: 06/10/17 Exam# [id number] Ordering Dr: Chaparrita Albrecht DO STUDY: MRI [...] Service support , CC: Chaparrita Albrecht DO Community Support Professional: Signed 05-May-2017 Chest PA and Lateral Result: Comments: See Note; NOTES: [facility] Imaging Services [address] [place] [address] Chest PA and Lateral MR#: [id number] Acct: [id number] Name: CLARENCE ALBERT Rep #: [id number] : 1940 F 77 From: Edwar Patino MD PCP: Chaparrita Albrecht DO Status: REG CLI Study: Chest PA and Lateral Date of Exam: 05/05/17 Exam# [id number] Ordering Dr: Keri Singh MD STUDY: X-RAY [...] CC: Keri Singh MD; Chaparrita Albrecht DO Community Support Professional: Signed 02-Nov-2016 Dexa Bone Density Study (HP) Result: Comments: See Note; NOTES: [facility] [address] [place] [address] Verdana 4d Dexa Bone Density Study (HP) MR#: [id number] Acct: [id number] Name: LYNNE ALBERT Rep #: [id number] : 1940 F 76 From: Misael Hebert MD PCP: Chaparrita Albrecht DO Status: REG CLI Study: Dexa Bone Density Study () Date of Exam: 11/02/16 Exam# [id number] Ordering Dr: Laura DO STUDY: DUAL ENERGY [...] Misael Hebert MD at 11:02 EDT Tel [phone], Service support , CC: Chaparrita Albrecht DO Community Support Professional: Signed 02-Nov-2016 SCREENING MAMM (CAD), BILAT Result: Comments: See Note; NOTES: [facility] Services [address] [place] [address] Verdana 4d SCREENING MAMM (CAD), BILAT MR#: [id number] Acct: [id number] Name: CLARENCE ALBERT Rep #: [id number] : 1940 F 76 From: Misael Hebert MD PCP: Chaparrita Albrecht DO Status: [facility] CLI Study: SCREENING MAMM (CAD), BILAT Date of Exam: 11/02/16 Exam# [id number] Ordering Dr: Case Albrecht DO MAMMOGRAPHY - [...] delay biopsy of a clinically suspicious abnormality. [id number] Electronically Signed: Misael Hebert MD at 12:44 EDT Tel [phone], Service support , CC: Chaparrita Albrecht DO Community Support Professional: Signed 05-Aug-2016 Venous Duplex Lower Extremity Result: Comments: See Note; NOTES: [facility] [address] [place] [address] Venous Duplex US, Unilateral 08/05/16 1053 MR#: [id number] Acct: [id number] Name: CLARENCE WEI Rep #: [id number] : 1940 76 From: Elvin Natarajan MD [...] Dictated: 08/05/16 1053 Date Transcribed: 08/05/16 1127 Community Support Professional: Signed 27-May-2016 Knee 4 or More Views Result: Comments: See Note; NOTES: [facility] Services [address] [place] [address] Verdana 4d Knee 4 or More Views MR#: [id number] Acct: [id number] Name: CLARENCE ALBERT Rep #: [id number] : 1940 F 76 From: Misael Hebert MD PCP: Chaparrita Albrecht DO Status: REG CLI Study: Knee 4 or More Views Date of Exam: 05/27/16 Exam# [id number] Ordering Dr: Kylah Linda UDY: X-RAY - [...] MD at 10:41 EST , Service support [phone], CC: Chaparrita Albrecht DO; Kylah Linda DO Community Support Professional: Signed 13-May-2016 Sinus/Facial Bone Result: Comments: See Note; NOTES: [facility] [address] [place] [address] Verdana 4d Sinus/Facial Bone MR#: [id number] Acct: [id number] Name: ALBERTCLARENCE J Rep #: [id number] : 1940 F 76 From: Godwin Winter MD PCP: Chaparrita Albrecht DO Status: REG CLI Study: Sinus/Facial Bone Date of Exam: 05/13/16 Exam# [id number] Ordering Dr: Alejandro Silverman MD STUDY: CT [...] MD at 7:35 EST , Service support [phone], CC: Chaparrita Albrecht DO; Alejandro Silverman MD Community Support Professional: Signed 21-Apr-2016 Emergency Department Summary Result: Comments: See Note; NOTES: [facility] Medical Records Department [address] [place] [address] Emergency Department Summary MR#: [id number] Acct: [id number] Name: CLARENCE ALBERT Rep #: [id number] : 1940 76 From: Carissa Murphy MD [...] epistaxis. CARISSA MURPHY MD T: NTS JOB: [id number] 04/21/16805 <Electronically signed by Carissa Murphy MD> Date Carissa donovan MD Cosigner Signature (If Indicated): Date CC: Chaparrita Albrecht DO Date Dictated: 04/20/161711 Date Transcribed: 04/20/161711 Community Support Professional: Signed 20-Apr-2016 Discharge Instruction Result: Comments: See Note; NOTES: [facility] Medical Records Department [address] [place] [address] Discharge Instruction 04/20/16 1303 MR#: [id number] Acct: [id number] Name: CLARENCE ALBERT Rep #: [id number] : 1940 76 From: Carissa Murphy MD PCP: Chaparrita Albrecht DO Status: [facility] ER ED Disposition - Plan for ED [...] your Primary Care Provider. Call [facility] ([phone]) or report to the closest Emergency Room. Call 911 if necessary. 04/20/16 7015 <Electronically signed by Carissa Murphy MD> Date Carissa Murphy MD Cosigner Signature (If I ndicated): Date CC: Chaparrita Albrecht DO 02-Nov-2015 Carotid Duplex Ultrasound Result: Comments: See Note; NOTES: [facility] [address] [place] [address] Carotid Duplex Ultrasound 10/30/15 1100 MR#: [id number] Acct: [id number] Name: CLARENCE ALBERT Rep #: [id number] : 1940 75 From: Elvin Natarajan MD Attending Dr: Chaparrita Albrecht DO Status: REG CLI Ordering Dr: Chaparrita Albrecht DO Date: 10/30/15 Location: [facility] Sex: F C Adm itted: Reason For [...] the left vertebral artery. Procedure Carotid Duplex 92289. The exam was diagnostic. Exam performed in [...] Dictated: 10/30/15 1100 Date Transcribed: 11/02/15 1143 Community Support Professional: Signed 30-Oct-2015 Bilat Scrn Digital AND CAD Result: Comments: See Note; NOTES: [facility] [address] [place] [address] Verdana 4d Bilat Scrn Digital AND CAD MR#: [id number] Acct: [id number] Name: CLARENCE ALBERT Rep #: [id number] : 1940 F 75 From: Andres Brady MD PCP: Chaparrita Albrecht DO Status: REG CLI Study: Saad Jaffe Digital AND CAD Date of Exam: 10/30/15 Exam# [id number] Ordering Dr: Chaparrita Albrecht DO MAMMOGRAPHY - [...] biop sy of a clinically suspicious abnormality. [id number] Electronically Signed: Andres Brady MD at 17:48 EDT Tel , Service support [phone], CC: Chaparrita Albrecht DO Community Support Professional: Signed 30-Oct-2015 Bilat Scrn Digital AND CAD Result: Comments: See Note; NOTES: [facility] [address] [place] [address] Verdana 4d Bilat Scrn Digital AND CAD MR#: [id number] Acct: [id number] Name: CLARENCE ALBERT Rep #: [id number] : 1940 F 75 From: Andres Brady MD PCP: Chaparrita Albrecht DO Status: REG CLI Study: Bilat Scrn Digital AND CAD Date of Exam: 10/30/15 Exam# [id number] Ordering Dr: Chaparrita Albrecht DO MAMMOGRAPHY - [...] abnormalities are identified. CC: Chaparrita Albrecht DO Community Support Professional: Signed 22-Oct-2015 ELECTROCARDIOGRAM, COMPLETE (ECG) (97484) Comments: ekg showed normal sinus rhythym, normal axis, no acute st/t wave changes no change Result: [MEASUREMENTS ANALYSIS] Date of Test: 10/22/2015 14:41:29; Heart Rate: 71; PA Interval: 140; QRS: 94; QT Interval: 384; Corrected QT Interval (QTc): 403; P Wave Columbia: 58; QRS Wave Columbia: -3; T Wave [place]: 56; Blood Pressure: 128/76 [ECG DIAGNOSTIC STATEMENTS] Date of Test: 10/22/2015 14:41:29; Summary: Sinus Rhythm Low voltage -possible pulmonary disease. ABNORMAL 22-Jul-2015 Kidney and Bladder Result: Comments: See Note; NOTES: [facility] Services [address] [place] [address] Verdana 4d Kidney and Bladder MR#: [id number] Acct: [id number] Name: Yaniv ALBERT Rep #: [id number] : 1940 F 75 From: Nir Sanchez MD PCP: Chaparrita Albrecht DO Status: REG CLI Study: Kidney and Bladder Date of Exam: 07/22/15 Exam# [id number] Ordering Dr: Chaparrita Albrecht DO STUDY: RENAL [...] Service support , CC: Chaparrita Albrecht DO Community Support Professional: Signed 11-Mar-2015 Knee 4 or More Views Result: Comments: See Note; NOTES: [facility] Services [address] [place] [address] Verdana 4d Knee 4 or More Views MR#: [id number] Acct: [id number] Name: CLARENCE ALBERT Rep #: [id number] : 1940 F 74 From: Trent Cameron DO PCP: Chaparrita Albrecht DO Status: REG CLI Study: Knee 4 or More Views Date of Exam: 03/11/15 Exam# [id number] Ordering Dr: Case Albrecht DO STUDY: X-RAY [...] at 7:45 EST Tel , Service support [phone], RAD/Knee 4 or More Views IMPRESSION: Degener ative changes within the knee. No acute fracture. Small suprapatellar effusion. Electronically Signed: Trent Cameron DO at 7:45 EST Tel , Service support [phone], CC: Chaparrita Albrecht DO Community Support Professional: Signed 11-Mar-2015 Knee 4 or More Views Result: Comments: See Note; NOTES: [facility] [address] [place] [address] Verdana 4d Knee 4 or More Views MR#: [id number] Acct: [id number] Name: BETY CLARENCE Nazia Rep #: [id number] : 1940 F 74 From: Trent Cameron DO PCP: Chaparrita Albrecht DO Status: REG CLI Study: Knee 4 or More Views Date of Exam: 03/11/15 Exam# [id number] Ordering Dr: Case Albrecht DO STUDY: X-RAY [...] at 7:46 EST Tel , Service support [phone], RAD/Knee 4 or More Views IMPRESSION: Mild degenerative changes. No acute bony abnormality. Electronically Signed: Trent Cameron DO at 7:46 EST Tel , Service support [phone], CC: Chaparrita Albrecht DO Community Support Professional: Signed 18-Oct-2014 Carotid Duplex Ultrasound Result: Comments: See Note; NOTES: [facility] [address] [place] [address] Carotid Duplex Ultrasound 10/18/14 1331 MR#: [id number] Acct: [id number] Na me: CLARENCE ALBERT Rep #: [id number] : 1940 74 From: Elvin Natarajan MD [...] the left vertebral artery. Procedure Carotid Duplex 18010. The exam was diagnostic. Exam performed in [...] Dictated: 10/18/14 1331 Date Transcribed: 10/18/14 1616 Community Support Professional: Signed 18-Oct-2014 Bilat Scrn Digital AND CAD Result: Comments: See Note; NOTES: [facility] [address] [place] [address] Breast Imaging Report MR#: [id number] Acct: [id number] Name: CLARENCE ALBERT Rep #: [id number] : 1940 F 74 From: Misael Hebert MD PCP: Chaparrita Albrecht DO Status: REG CLI Study: Saad Jaffe Digital AND CAD Date of Exam: 10/18/14 Exam# [id number] Ordering Dr: Chaparrita Albrecht DO MAMMOGRAPHY - [...] Misael redmond MD at 13:44 EDT Tel [phone], Service support [phone], CC: Chaparrita Albrecht DO Community Support Professional: Signed 09-Jul-2014 Dexa Bone Density Study (HP) Result: Comments: See Note; NOTES: [facility] [address] [place] [address] Bone Density Report MR#: [id number] Acct: [id number] Name: CLARENCE ALBERT Rep #: [id number] : 1940 F 74 From: Misael Hebert MD PCP: Chaparrita Albrecht DO Status: REG CLI Study: Dexa Bone Density Study (HP) Date of Exam: 07/09/14 Exam# [id number] Ordering Dr: Chaparrita Albrecht DO STUDY: DUAL [...] Angel Hebert MD at 14:55 EDT Tel [phone], Service support [phone], CC: Chaparrita Albrecht DO Community Support Professional: Signed 17-Sep-2013 Chest PA and Lateral Result: Comments: See Note; NOTES: [facility] [address] [place] [address] Radiology Report MR#: [id number] Acct: [id number] Name: CLARENCE ALBERT Rep #: [id number] : 1940 F 73 From: David Bennett MD PCP: Chaparrita Albrecht DO Status: REG CLI Study: Chest PA and Lateral Date of Exam: 09/17/13 Exam# [id number] Ordering Dr: Chaparrita Albrecht DO STUDY: X-RAY [...] MD at 20:44 EDT , Service support [phone], RAD/Chest PA and Lateral IMPRESSION: No focal infiltrate or edema. Electronic ally Signed: David Bennett MD at 20:44 EDT , Service support [phone], CC: Chaparrita Albrecht DO Community Support Professional: Signed 17-Sep-2013 Spirometry (70368) Result: 29-Aug-2013 Carotid Duplex Ultrasound Result: Comments: See Note; NOTES: [facility] [address] [place] [address] Carotid Duplex Ultrasound 08/24/13 0939 MR#: [id number] Acct: [id number] Nam e: CLARENCE ALBERT Rep #: [id number] : 1940 73 From: Anurag Loya MD Attending Dr: Chaparrita Albrecht DO Status: REG CLI Ordering Dr: Chaparrita Albrecht DO Date: 08/24/13 Location: [facility] Sex: F C Admitted: Rt. Velocities/BP Lt. [...] in the left bulb. Procedure Carotid Duplex 35232. Exam perfor med in department. Interpretation Summary Mild (<50%) stenosis right extracranial internal carotid. Mild (<50%) stenosis left extracranial internal carotid. Flow within the vertebra l arteries is antegrade bilaterally. Ordering Physician: Chaparrita Albrecht Performed By: Kendal Benton RVT : Chaparrita Albrecht DO Date Dictated: 08/24/13 0939 Date Transcribed: 08/29/13 111 Community Support Professional: Signed Immunization Name Dates Details Influenza (3 years and up) on: 16-Jan-2008 Comments: Lot #: [id number] date: 09/10Amount given: 0.5 mlRoute: IMSite given: Left deltoidGiven by: Olivia Bell LPN Influenza (3 years and up) on: 09-Jan-2009 Comments: Lot #[id number]-left deltoidDose0.5mlgiven by Marycarmen Jorge LPN Pneumococcal (2 years and up) on: 29-Aug-2007 Comments: 0.5cc given im lt arm [id number] exp 02-13-08 Family History Unknown Family Member [...] smoker Vital Signs Date Test Result Details :39 Temperature 97.9 f Comments: Method: Temporal [...] Description Value Details :24 HgA1C , Office (58908) HgA1C , Office 6.5 % (Normal) Range: 4.6 - 7.1 :14 LIPID PANEL (99380) Comments: PATIENT WAS FASTINGPERFORMED BY: [employer]6370 [facility] [id number] LDL/HDL Ratio 1.1 {ratio} (Normal) Range: 0.0-3.2 [...] (Normal) Range: 100-199 :14 Vitamin D Hydroxy (54338) Comments: PATIENT WAS FASTINGPERFORMED BY: [employer]6370 [facility] [id number] Vitamin D, 25-Hydroxy 37.8 ng/mL (Normal) Range: 30.0-100.0 Comments: Vitamin D deficiency has been defined by the [place] and an Endocrine Society practice guideline as alevel of serum 25-OH vitamin D less than 20 ng/mL (1,2).The Endocrine Society went on to further define vitamin Dinsufficiency as a level between 21 and 29 ng/mL (2).1. IOM ([place] of [employer]). 2010. Dietary reference intakes for calcium and D. [place]: The National Academies Press.2. Mira MF, Rosette LOPEZ, Tommy SWAIN, et al. Evaluation, treatment, and prevention of vitamin D deficiency: an Endocrine Society clinical practice guideline. JCEM. 2010; 96(7):1911-30. :14 CBC with auto diff (27202) Comments: PATIENT WAS FASTINGPERFORMED BY: [facility]CoSaint [facility] at SussexRsjhzu6752 [facility] [id number] Immature Grans (Abs) 0.0 {x10E3/uL} (Normal) Range: [...] WAS FASTINGPERFORMED BY: [facility]Co[facility] SussexPphcdl0268 [facility] [id number] (95980) ALT (SGPT) 10 [iU]/L (Normal) Range: 0-32 [...] CREATININE RATIO Comments: PATIENT WAS FASTINGPERFORMED BY: [employer] [facility] [id number] (93926) AND (98950) Alb/Creat Ratio 4213.3 {mg/g_creat} (Abnormal) Range: 0.0-30.0 Albumin, Urine 3206.3 ug/mL (Normal) Comments: Results confirmed ondilution. Creatinine, Urine 76.1 mg/dL (Normal) 36-Idk-75829:40 CBC & PLATELETS (AUTO) (72212) Comments: please fax to Dr. Austin- [phone]; PATIENT WAS FASTINGPERFORMED BY: [employer]ip[employer] WorldWideGallup Indian Medical CenterMnvhxa1160 [facility] [id number] Platelets 148 {x10E3/uL} (Abnormal) Range: 150-379 RDW 14.8 % (Normal) Range: 12.3-15.4 MCHC 33.6 g/dL (Normal) Range: 31.5-35.7 MCH 29.7 pg (Normal) Range: 26.6-33.0 MCV 89 fL (Normal) Range: 79-97 Hematocrit 36.9 % (Normal) Range: 34.0-46.6 Hemoglobin 12.4 g/dL (Normal) Range: 11.1-15.9 RBC 4.17 {x10E6/uL} (Normal) Range: 3.77-5.28 WBC 4.7 {x10E3/uL} (Normal) Range: 3.4-10.8 62-Vlu-02030:40 RENAL FUNCTION PANEL Comments: please fax to Dr. Austin- [phone]; PATIENT WAS FASTINGPERFORMED BY: [employer] [facility] HospitalMobiiColumb[facility] [id number] Information: [id number] FX DR. SANTANA (54657) Albumin 3.1 g/dL (Abnormal) Range: 3.5-4.8 Phosphorus [...] 133 mg/dL (Abnormal) Range: 65-99 :40 MAGNESIUM (91698) Comments: please fax to Dr. Austin- [phone]; PATIENT WAS FASTINGPERFORMED BY: RotaPost6370 P2i [facility] HospitalMobiiColumb[facility] [id number] Magnesium 1.9 mg/dL (Normal) Range: 1.6-2.3 :40 CALCIFEDIOL (56701) Comments: please fax to Dr. Austin- [phone]; PATIENT WAS FASTINGPERFORMED BY: [employer] Daxjoq3523 [facility] [id number] Vitamin D, 25-Hydroxy 29.4 ng/mL (Abnormal) Range: 30.0-100.0 Comments: Vitamin D deficiency has been defined by the [place] of[place] and an Endocrine Society practice guideline as alevel of serum 25-OH vitamin D less than 20 ng/mL (1,2).The Endocrine Society went on to further define vitamin Dinsufficiency as a level between 21 and 29 ng/mL (2).1. IOM ([place]). 2010. Dietary reference intakes for calcium and D. [place]: The National Academies Press.2. Mira MF, Rosette LOPEZ, Tommy SWAIN, et al. Evaluation, treatment, and prevention of vitamin D deficiency: an Endocrine Society clinical practice guideline. JCEM. 2010; 96(7):1911-30. :40 PARATHORMONE (24007) Comments: please fax to Dr. Austin- [phone]; PATIENT WAS FASTINGPERFORMED BY: EVE [employer] Ogchcm2461 [facility] [id number] PTH, Intact 22 pg/mL (Normal) Range: 15-65 :30 COLON BIOPSY (CHOOSE See Note (Normal) Comments: [facility] [address] [place], [place], [address] SITE) Comments: Patient: CLARENCE ALBERT : 1940 (77/F) Acct Num: [id number] Phys: Marcus Caldera Unit Num: [id number] Loc: [facility] Specimen: [id number] Received: 09/16/171528 Spec Type: C OLON BX [...] one cassette. / MARCY:dustin 09/19/17 TC:1 CPT: 80944 x2 HEADER OPERATION: Colonoscopy PRE-OP DIAGNOSIS: History of polyps TISSUE SUBMITTED: A Proximal sigmoid polyp, rule out adenoma, B Transversecolon, rule out adenoma MICROSCOPIC DESCRIPTION Slides are reviewed. M ICROSCOPIC DIAGNOSIS A. Proximal sigmoid polyp, biopsy: Fragments of tubular adenoma. B. Transverse colon polyp, biopsy: Fragments of tubular adenoma. SJ:dustin 09/20/17 Signed _ Nacho Ardon 09/20/17 <signature on file> 37-Elv-92734:24 METABOLIC PANEL, COMPREHENSIVE Comments: PATIENT NOT FASTINGPERFORMED BY: [facility]CoSaint [facility] at SussexRjcxsb3210 [facility] [id number] (33683) ALT (SGPT) 14 [iU]/L (Normal) Range: 0-32 [...] (Abnormal) Range: 65-99 :07 HgA1C , Office (46574) HgA1C , Office 7.2 % (Abnormal) Range: 4.6 - 7.1 :37 Clostridium difficile Toxin Comments: PATIENT NOT FASTINGPERFORMED BY: [employer]6370 [employer]in [place] [id number] A+B, EIA (09430) C difficile Toxins A+B, EIA Negative (Normal) :37 LEUKOCYTE COUNT, FECAL (14985) Comments: PATIENT NOT FASTINGPERFORMED BY: [employer]6370 [place] [id number] Result 1 NWBC (Normal) Comments: No white blood cells seen. White Blood Cells (WBC), Final report (Normal) Stool :37 OVA & PARASITE DIR SMEAR Comments: PATIENT NOT FASTINGPERFORMED BY: [employer]6370 [employer] [place] [id number] (12466) Result 1 NOCP (Normal) Comments: No ova, cysts, or parasites seen. Ova + Parasite Exam Final report (Normal) Comments: These results were obtained using wet preparation(s) and trichromestained smear. This test does not include testing for Cryptosporidiumparvum, Cyclospora, or Microsporidia. :37 SETH CULTURE-STOOL (86274) Comments: PATIENT NOT FASTINGPERFORMED BY: [employer]6370 [employer] [place] [id number] Information: SRC:ST SRC:ST E coli Shiga Toxin EIA Negative (Normal) Result 1 NCI (Normal) Comments: No Campylobacter species isolated. Campylobacter Culture Final report (Normal) Result 1 NSS (Normal) Comments: No Salmonella or Shigella recovered. Salmonella/Shigella Screen Final report (Normal) 97-Jzi-08985:06 Renal function Panel Comments: fax copy to Dr. Santana [phone]; A courtesy copy of this report has been sent [phone].PATIENT NOT FASTINGPERFORMED BY: [employer] Nerhwa3692 [place] [facility] [id number] Information: NURSE DRAW (03108) Albumin 3.5 g/dL (Normal) Range: 3.5-4.8 Phosphorus [...] copy of this report has been sent [phone].PATIENT NOT FASTINGPERFORMED BY: [employer] Mmgxch6973 [facility] [id number] :02 Range: 15-65 Vitamin D, 25-Hydroxy 34.7 ng/mL (Normal) Comments: A courtesy copy of this report has been sent [phone].PATIENT NOT FASTINGPERFORMED BY: [employer] Zhehax3735 [facility] Division [id number] :02 Range: 30.0-100.0 Comments: Vitamin D deficiency has been defined by the [place] and an Endocrine Society practice guideline as alevel of serum 25-OH vitamin D less than 20 ng/mL (1,2).The Endocrine Society went on to further define vitamin Dinsufficiency as a level between 21 and 29 ng/mL (2).1. IOM ([place]). 2010. Dietary reference intakes for calcium and D. [place]: The National AcademS[employer] Press.2. Mira MF, Rosette LOPEZ, Tommy SWAIN, et al. Evaluation, treatment, and prevention of vitamin D deficiency: an Endocrine Society clinical practice guideline. JCEM. 2010; 96(7):1911-30. 9-Vdd-992392:02 MICROALBUMIN: CREATININE RATIO Comments: send results to Dr. Santana fax: [phone]; A courtesy copy of this report has been sent [phone].PATIENT NOT FASTINGPERFORMED BY: WishLink70 [place] [id number] (59080) AND (14544) Alb/Creat Ratio 4191.2 {mg/g_creat} (Abnormal) Range: 0.0-30.0 Albumin, Urine 2380.6 ug/mL (Normal) Comments: Results confirmed ondilution. Creatinine, Urine 56.8 mg/dL (Normal) 7-Kez-243648:02 CBC, PLATELETS & MANUAL Comments: send results to Dr. Santana fax: [phone]; A courtesy copy of this report has been sent [phone].PATIENT NOT FASTINGPERFORMED BY: WishLink70 Cofio SoftwareColumbus Regional Healthcare System [id number] Information: VIT D25, PTH DIFF (74607) Immature Grans (Abs) 0.0 {x10E3/uL} (Normal) Range: [...] 3.77-5.28 WBC 5.4 {x10E3/uL} (Normal) Range: 3.4-10.8 9-Uez-288509:02 MAGNESIUM (19667) Comments: send results to Dr. Santana fax: [phone]; A courtesy copy of this report has been sent [phone].PATIENT NOT FASTINGPERFORMED BY: Clinipace WorldWideSaint Clare's Hospital at SussexVxpbua4504 [facility] [id number] Magnesium, Serum 1.8 mg/dL (Normal) Range: 1.6-2.3 5-Dfd-303154:02 RENAL FUNCTION PANEL (64833) Comments: send results to Dr. Santana fax: [phone]; A courtesy copy of this report has been sent [phone].PATIENT NOT FASTINGPERFORMED BY: Office DepotSaint Clare's Hospital at SussexUcrnpu8897 [facility] [id number] Albumin, Serum 3.7 g/dL (Normal) Range: 3.5-4.8 [...] Glucose, Serum 119 mg/dL (Abnormal) Range: 65-99 8-Rcg-643665:07 LIPID PANEL (27696) Comments: PATIENT WAS FASTINGPERFORMED BY: WishLink70 Cofio SoftwareColumbus Regional Healthcare System [id number] LDL/HDL Ratio 1.4 {ratio} (Normal) Range: 0.0-3.2 Comments: LDL/HDL Ratio Men Women 1/2 Avg.Risk 1.0 1.5 Av g.Risk 3.6 3.2 2X Avg.Risk 6.2 5.0 3X Avg.Risk 8.0 6.1 LDL Cholesterol Calc 102 mg/dL (Abnormal) Range: 0-99 VLDL Cholesterol Cesar 17 mg/dL (Normal) Range: 5-40 HDL Cholesterol 75 mg/dL (Normal) Triglycerides 84 mg/dL (Normal) Range: 0-149 Cholesterol, Total 194 mg/dL (Normal) Range: 100-199 5-Pet-756433:07 CBC W/AUTO DIFF WBC (43726) Comments: PATIENT WAS FASTINGPERFORMED BY: Cyber Gifts6370 [facility] [id number] Immature Grans (Abs) 0.0 {x10E3/uL} (Normal) Range: [...] 3.77-5.28 WBC 4.8 {x10E3/uL} (Normal) Range: 3.4-10.8 5-Ahx-451829:07 METABOLIC PANEL, COMPREHENSIVE Comments: PATIENT WAS FASTINGPERFORMED BY: LabCoSaint Clare's Hospital at SussexIpcjoe5158 [facility] [id number] (77214) ALT (SGPT) 14 [iU]/L (Normal) Range: 0-32 [...] 8-27 Glucose 158 mg/dL (Abnormal) Range: 65-99 9-Hqd-293710:07 VITAMIN B-12 (CYANOCOBALAMIN) Comments: PATIENT WAS FASTINGPERFORMED BY: Newgistics [place] [facility] Genes[facility] HospitalMobiiColumbus Regional Healthcare System [id number] (71346) Vitamin B12 771 pg/mL (Normal) Range: 232-1245 13-May-20170:00 CDIFF (Molecular) Comments: [facility] [address] [place], [address] CDIFF See Note (Normal) Comments: Cdiff-MolecularNormal Reference Range = Negative C. Diff DNA Negative- No toxigenic C. Diff DNA DetectedNAAT METHOD Testing was performed using nucleic acid amplification 05-May-20179:32 Rapid Flu (13129 x 2) Influenza A Ag Negative (Normal) :35 CBC with auto diff (20714) Comments: PATIENT WAS FASTINGPERFORMED BY: Iddiction Lhcotp6218 [facility] [id number] Immature Grans (Abs) 0.0 {x10E3/uL} (Normal) Range: [...] 3.77-5.28 WBC 6.6 {x10E3/uL} (Normal) Range: 3.4-10.8 10-Dmt-76950:35 METABOLIC PANEL, COMPREHENSIVE Comments: PATIENT WAS FASTINGPERFORMED BY: [facility] HospitalCoSaint Clare's Hospital at SussexVndiwz8445 [facility] [id number] (76197) ALT (SGPT) 16 [iU]/L (Normal) Range: 0-32 [...] Glucose, Serum 145 mg/dL (Abnormal) Range: 65-99 89-Gau-369227:51 HgA1C , Office (66309) HgA1C , Office 6.7 % (Normal) Range: 4.6 - 7.1 0-Ici-885595:50 CALCIFEDIOL (76494) Comments: A courtesy copy of this report has been sent [phone].PATIENT WAS FASTINGPERFORMED BY: LabAspirus Iron [facility] Hospital6370 [facility] [id number] Vitamin D, 25-Hydroxy 40.7 ng/mL (Normal) Range: 30.0-100.0 Comments: Vitamin D deficiency has been defined by the [place] ofUniversity Hospitals Portage Medical Centercine and an Endocrine Society practice guideline as alevel of serum 25-OH vitamin D less than 20 ng/mL (1,2).The Endocrine Society went on to further define vitamin Dinsufficiency as a level between 21 and 29 ng/mL (2).1. IOM ([place]). 2010. Dietary reference intakes for calcium and D. [place]: The National Academies Press.2. Mira MF, Rosette NC, Tommy SWAIN, et al. Evaluation, treatment, and prevention of vitamin D deficiency: an Endocrine Society clinical practice guideline. JCEM. 2010; 96(7):1911-30. 4-Tbo-811327:50 PTH (PARATHORMONE) (46046) Comments: A courtesy copy of this report has been sent [phone].PATIENT WAS FASTINGPERFORMED BY: Clinipace WorldWide Jbzdba85[address] [facility] [id number] PTH, Intact 20 pg/mL (Normal) Range: 15-65 7-Cyq-599390:50 MICROALBUMIN: CREATININE RATIO Comments: A courtesy copy of this report has been sent [phone].PATIENT WAS FASTINGPERFORMED BY: Cyber Gifts6[address] [facility] [id number] (00205) AND (46262) Microalb/Creat Ratio 4376.0 {mg/g_creat} (Abnormal) Range: 0.0-30.0 Microalbumin, Urine 3369.5 ug/mL (Normal) Comments: Results confirmed ondilution. Creatinine, Urine 77.0 mg/dL (Normal) 4-Ggs-560927:50 Renal function Panel Comments: A courtesy copy of this report has been sent [phone].PATIENT WAS FASTINGPERFORMED BY: Cyber Gifts6370 [facility] [id number] Information: FX DR. SANTANA [phone] (30093) Albumin, Serum 3.8 g/dL (Normal) Range: 3.5-4.8 [...] Glucose, Serum 203 mg/dL (Abnormal) Range: 65-99 6-Www-672283:50 Magnesium (21687) Comments: A courtesy copy of this report has been sent [phone].PATIENT WAS FASTINGPERFORMED BY: [facility]6370 [facility] [id number] Magnesium, Serum 1.8 mg/dL (Normal) Range: 1.6-2.3 :53 CBC with auto diff (12028) Comments: A courtesy copy of this report has been sent [phone].PATIENT WAS FASTINGPERFORMED BY: [facility]6370 [facility] [id number] Immature Grans (Abs) 0.0 {x10E3/uL} (Normal) Range: [...] {x10E3/uL} (Normal) Range: 3.4-10.8 :53 LIPID PANEL (38123) Comments: A courtesy copy of this report has been sent [phone].PATIENT WAS FASTINGPERFORMED BY: Accelera InnovationsAspirus Iron River Hospital6370 [facility] [id number] LDL/HDL Ratio 1.2 {ratio_units} (Normal) Range: 0.0-3.2 Comments: LDL/HDL Ratio Men Women 1/2 Avg.Risk 1.0 1.5 Av g.Risk 3.6 3.2 2X Avg.Risk 6.2 5.0 3X Avg.Risk 8.0 6.1 LDL Cholesterol Calc 90 mg/dL (Normal) Range: 0-99 VLDL Cholesterol Cesar 13 mg/dL (Normal) Range: 5-40 HDL Cholesterol 76 mg/dL (Normal) Triglycerides 67 mg/dL (Normal) Range: 0-149 Cholesterol, Total 179 mg/dL (Normal) Range: 100-199 7-Fsu-617813:53 METABOLIC PANEL, COMPREHENSIVE Comments: A courtesy copy of this report has been sent [phone].PATIENT WAS FASTINGPERFORMED BY: [facility]6370 [facility] [id number] (74828) ALT (SGPT) 11 [iU]/L (Normal) Range: 0-32 [...] Glucose, Serum 205 mg/dL (Abnormal) Range: 65-99 49-Vfn-450652:57 HgA1C , Office (06494) HgA1C , Office 7.1 % (Normal) Range: 4.6 - 7.1 :09 LIPID PANEL (92108) Comments: PATIENT WAS FASTINGPERFORMED BY: Cyber Gifts6370 [facility] Ph[facility] SolutionsFlaget Memorial Hospital [id number] LDL/HDL Ratio 1.3 {ratio_units} (Normal) Range: 0.0-3.2 [...] PANEL, COMPREHENSIVE Comments: PATIENT WAS FASTINGPERFORMED BY: WishLink70 Cofio SoftwareColumbus Regional Healthcare System [id number] (81496) ALT (SGPT) 12 [iU]/L (Normal) Range: 0-32 [...] (Abnormal) Range: 65-99 :50 HgA1C , Office (52357) HgA1C , Office 6.7 % (Normal) Range: 4.6 - 7.1 :25 Magnesium, Serum 1.9 mg/dL (Normal) Comments: PATIENT WAS FASTINGPERFORMED BY: Clinipace WorldWideSaint Clare's Hospital at SussexZvrjdp5030 [facility] [id number] Range: 1.6-2.3 :25 Microalb/Creat Ratio, Randm Ur Comments: PATIENT WAS FASTINGPERFORMED BY: [facility] Ztznvi7817 [facility] [id number] Microalb/Creat Ratio 2652.0 {mg/g_creat} Range: 0.0-30.0 (Abnormal) Microalbumin, Urine 2482.3 ug/mL (Normal) Comments: Results confirmed ondilution. Creatinine, Urine 93.6 mg/dL (Normal) PTH, Intact 26 pg/mL (Normal) Comments: PATIENT WAS FASTINGPERFORMED BY: CB [facility] Djyjyr8[address] RoadDublin [place] [id number] :25 Range: 15-65 :25 Renal Panel (10) Comments: PATIENT WAS FASTINGPERFORMED BY: CB [facility] Kgkwlf9081 [address] RoadDublin [place] [id number] Phosphorus, Serum 4.3 mg/dL (Normal) Range: 2.5-4.5 :25 Thyroxine (T4) Free, Direct, S Comments: PATIENT WAS FASTINGPERFORMED BY: [facility] Qudqxc1476 [address] RoadDublin [place] [id number] T4,Free(Direct) 1.08 ng/dL (Normal) Range: 0.82-1.77 : TSH 2.980 {uIU/mL} Comments: PATIENT WAS FASTINGPERFORMED BY: [facility] Vqplmd6065 [address] RoadDublin [place] [id number] 25 (Normal) Range: 0.450-4.500 : Vitamin D, 25-Hydroxy 37.1 ng/mL (Normal) Comments: PATIENT WAS FASTINGPERFORMED BY: [facility] Nmauag2856 [address] RoadDublin [place] [id number] 25 Range: 30.0-100.0 Comments: Vitamin D deficiency has been defined by the [place] of[place] and an Endocrine Society practice guideline as alevel of serum 25-OH vitamin D less than 20 ng/mL (1,2).The Endocrine Society went on to further define vitamin Dinsufficiency as a level between 21 and 29 ng/mL (2).1. IOM ([place]). 2010. Dietary reference intakes for calcium and D. [place]: The National Academies Press.2. Mira MF, Rosette NC, Derek-Coy SWAIN, et al. Evaluation, treatment, and prevention of vitamin D deficiency: an Endocrine Society clinical practice guideline. JCEM. 2010; 96(7):1911-30. :25 CBC W/AUTO DIFF WBC (65672) Comments: PATIENT WAS FASTINGPERFORMED BY: CB [facility] Kpsoly1258 [address] RoadDublin [place] [id number] Immature Grans (Abs) 0.0 {x10E3/uL} (Normal) Range: [...] WAS FASTINGPERFORMED BY: LabCoSaint Clare's Hospital at SussexOnjqhn1795 [facility] [id number]; non- emergent till apt (17098) ALT (SGPT) 10 [iU]/L (Normal) Range: 0-32 [...] mg/dL (Abnormal) Range: 65-99 :25 LIPID PANEL (31808) Comments: PATIENT WAS FASTINGPERFORMED BY: LabCoSaint Clare's Hospital at SussexStxokd3196 [facility] [id number] LDL/HDL Ratio 0.9 {ratio_units} (Normal) Range: 0.0-3.2 Comments: LDL/HDL Ratio Men Women 1/2 Avg.Risk 1.0 1.5 Av g.Risk 3.6 3.2 2X Avg.Risk 6.2 5.0 3X Avg.Risk 8.0 6.1 LDL Cholesterol Calc 65 mg/dL (Normal) Range: 0-99 VLDL Cholesterol Cesar 19 mg/dL (Normal) Range: 5-40 HDL Cholesterol 75 mg/dL (Normal) Triglycerides 93 mg/dL (Normal) Range: 0-149 Cholesterol, Total 159 mg/dL (Normal) Range: 100-199 88-Rgh-408145:54 HgA1C , Office (47833) HgA1C , Office 6.6 % (Normal) Range: 4.6 - 7.1 41-Rlf-008891:1 Magnesium, Serum 2.1 mg/dL (Normal) Comments: PATIENT WAS FASTINGPERFORMED BY: LabCo Twmptk7968 [address] RoadDublin [place] [id number] 2 Range: 1.6-2.3 55-Jkn-530099:12 Microalb/Creat Ratio, Randm Ur Comments: PATIENT WAS FASTINGPERFORMED BY: [facility] Yzeocy[address] [facility] Hospitalblin [place] [id number] Microalb/Creat Ratio 1863.4 {mg/g_creat} (Abnormal) Range: 0.0-30.0 Microalbumin, Urine 1416.2 ug/mL (Normal) Comments: Results confirmed ondilution. Creatinine, Urine 76.0 mg/dL (Normal) 03-Jvl-471263:12 Microscopic Examination Comments: PATIENT WAS FASTINGPERFORMED BY: [facility] Elrxem0454 [address] RoadDublin [place] [id number] Bacteria None seen (Normal) Mucus Threads Present (Normal) Cast Type Hyaline casts (Normal) Casts Present {/lpf} (Abnormal) Epithelial Cells (non 0-10 {/hpf} Range: 0 - 10 renal) (Normal) RBC 3-10 {/hpf} Range: 0 - 2 (Abnormal) WBC 6-10 {/hpf} Range: 0 - 5 (Abnormal) PTH, Intact 36 pg/mL (Normal) Comments: PATIENT WAS FASTINGPERFORMED BY: [facility] Fmtubd[address] [facility]bl[facility] [place] [id number] 0:12 Range: 15-65 Vitamin D, 25-Hydroxy 42.9 ng/mL (Normal) Comments: PATIENT WAS FASTINGPERFORMED BY: [facility] Qjaori60[address] [facility] HospitalDublin [place] [id number] 0:12 Range: 30.0-100.0 Comments: Vitamin D deficiency has been defined by the [place] of[place]icine and an Endocrine Society practice guideline as alevel of serum 25-OH vitamin D less than 20 ng/mL (1,2).The Endocrine Society went on to further define vitamin Dinsufficiency as a level between 21 and 29 ng/mL (2).1. IOM ([place]). 2010. Dietary reference intakes for calcium and D. [place]: The National Academies Press.2. Mira MF, Rosette NC, Tommy SWAIN, et al. Evaluation, treatment, and prevention of vitamin D deficiency: an Endocrine Society clinical practice guideline. JCEM. 2010; 96(7):5671-30. 04-Akz-289012:12 URINALYSIS, W/ MICRO (14327) Comments: PATIENT WAS FASTINGPERFORMED BY: WishLink70 Cofio SoftwareColumbus Regional Healthcare System [id number] Microscopic Examination See below: (Normal) Comments: Microscopic was indicated and was performed. Nitrite, Urine Negative (Normal) Urobilinogen,Semi-Qn 0.2 mg/dL (Normal) Range: 0.2-1.0 Bilirubin Negative (Normal) Occult Blood Negative (Normal) Ketones Negative (Normal) Glucose Negative (Normal) Protein 4+ (Abnormal) WBC Esterase Trace (Abnormal) Appearance Clear (Normal) Urine-Color Yellow (Normal) pH 6.0 (Normal) Range: 5.0-7.5 Specific [place] 1.015 (Normal) Range: 1.005-1.030 66-Nzz-523539:12 CBC W/AUTO DIFF WBC (86139) Comments: PATIENT WAS FASTINGPERFORMED BY: Cyber Gifts6370 FlatoraCritical access hospital [id number] Immature Grans (Abs) 0.0 {x10E3/uL} (Normal) Range: [...] 3.77-5.28 WBC 6.2 {x10E3/uL} (Normal) Range: 3.4-10.8 22-Ttq-638753:12 METABOLIC PANEL, COMPREHENSIVE Comments: PATIENT WAS FASTINGPERFORMED BY: LabCoSaint Clare's Hospital at SussexGicjnw6895 [facility] [id number] (67833) ALT (SGPT) 14 [iU]/L (Normal) Range: 0-32 [...] Glucose, Serum 154 mg/dL (Abnormal) Range: 65-99 73-Jdd-426201:12 LIPID PANEL (99566) Comments: PATIENT WAS FASTINGPERFORMED BY: Office DepotSaint Clare's Hospital at SussexSaspvi8808 [facility] [id number] LDL/HDL Ratio 0.7 {ratio_units} (Normal) Range: 0.0-3.2 Comments: LDL/HDL Ratio Men Women 1/2 Avg.Risk 1.0 1.5 Av g.Risk 3.6 3.2 2X Avg.Risk 6.2 5.0 3X Avg.Risk 8.0 6.1 LDL Cholesterol Calc 49 mg/dL (Normal) Range: 0-99 VLDL Cholesterol Cesar 14 mg/dL (Normal) Range: 5-40 HDL Cholesterol 75 mg/dL (Normal) Triglycerides 68 mg/dL (Normal) Range: 0-149 Cholesterol, Total 138 mg/dL (Normal) Range: 100-199 21-Ftj-059913:50 HgA1C , Office (32917) HgA1C , Office 6.7 % (Normal) Range: 4.6 - 7.1 63-Wlr-412826:36 VITAMIN B-12 (CYANOCOBALAMIN) Comments: PATIENT WAS FASTINGPERFORMED BY: Office DepotSaint Clare's Hospital at SussexEqbzef4644 [facility] [id number] (37379) Vitamin B12 802 pg/mL (Normal) Range: 211-946 69-Enz-505117:36 LIPID PANEL (24129) Comments: PATIENT WAS FASTINGPERFORMED BY: Office DepotSaint Clare's Hospital at SussexQsfabx4358 [facility] [id number] LDL/HDL Ratio 0.8 {ratio_units} (Normal) Range: 0.0-3.2 [...] Cholesterol, Total 161 mg/dL (Normal) Range: 100-199 70-Mnt-042954:36 LDH (LD) (LACTATE DEHYDROGENASE) Comments: PATIENT WAS FASTINGPERFORMED BY: Office DepotGallup Indian Medical CenterHsawjp6624 [facility] [id number] (85438) LDH 217 [iU]/L (Normal) Range: 119-226 95-Ymh-915414:36 CBC W/AUTO DIFF WBC (44383) Comments: PATIENT WAS FASTINGPERFORMED BY: [employer] Hqqsts9510 [facility] [id number] Immature Grans (Abs) 0.0 {x10E3/uL} (Normal) Range: [...] 3.77-5.28 WBC 10.6 {x10E3/uL} (Normal) Range: 3.4-10.8 91-Uwh-102076:36 METABOLIC PANEL, COMPREHENSIVE Comments: PATIENT WAS FASTINGPERFORMED BY: LabCoSaint Clare's Hospital at SussexGdhqeo7676 [facility] [id number] (69851) ALT (SGPT) 15 [iU]/L (Normal) Range: 0-32 [...] Glucose, Serum 137 mg/dL (Abnormal) Range: 65-99 05-Ihr-397790:36 TSH (00849) Comments: PATIENT WAS FASTINGPERFORMED BY: WishLink70 [facility] [id number] TSH 0.560 {uIU/mL} (Normal) Range: 0.450-4.500 :02 Renal function Panel (58750) Comments: PATIENT WAS FASTINGPERFORMED BY: WishLink70 [facility] [id number] Albumin, Serum 3.7 g/dL (Normal) Range: 3.5-4.8 [...] 137 mg/dL (Abnormal) Range: 65-99 :02 MAGNESIUM (82967) Comments: PATIENT WAS FASTINGPERFORMED BY: WishLink70 [facility] [id number] Magnesium, Serum 2.2 mg/dL (Normal) Range: 1.6-2.3 :02 MICROALBUMIN: CREATININE RATIO Comments: PATIENT WAS FASTINGPERFORMED BY: Office DepotSaint Clare's Hospital at SussexMwlhlc2355 [facility] [id number] (07322) AND (64334) Microalb/Creat Ratio 2038.7 {mg/g_creat} (Abnormal) Range: 0.0-30.0 Microalbumin, Urine 1223.2 ug/mL (Normal) Comments: Results confirmed ondilution. Creatinine, Urine 60.0 mg/dL (Normal) 26-Btx-54301:02 CBC WITH MANUAL DIFF Comments: PATIENT WAS FASTINGPERFORMED BY: [employer] Urfpmk5546 [facility] [id number] Information: [id number] (92991) Immature Grans (Abs) 0.0 {x10E3/uL} (Normal) Range: [...] {x10E3/uL} (Normal) Range: 3.4-10.8 :02 HGB A1C (56394) Comments: PATIENT WAS FASTINGPERFORMED BY: [facility]6370 [facility] [id number] Hemoglobin A1c 6.4 % (Abnormal) Range: 4.8-5.6 Comments: . Pre-diabetes: 5.7 - 6.4 Diabetes: >6.4 Glycemic control for adults with diabetes: <7.0 :02 Lipid Panel (90096) Comments: PATIENT WAS FASTINGPERFORMED BY: [place] 0727370 [facility] [id number] LDL/HDL Ratio 1.1 {ratio_units} (Normal) Range: 0.0-3.2 [...] (Normal) Range: 100-199 :03 HgA1C , Office (32886) HgA1C , Office 6.1 % (Normal) Range: 4.6 - 7.1 :24 CBC W/AUTO DIFF WBC Comments: PATIENT WAS FASTINGPERFORMED BY: [place] 0727370 [facility] [id number] Information: [id number] (84653) Immature Grans (Abs) 0.0 {x10E3/uL} (Normal) Range: [...] CREATININE RATIO Comments: PATIENT WAS FASTINGPERFORMED BY: [employer] [facility] [id number] (70074) AND (37137) Microalb/Creat Ratio 1223.8 {mg/g_creat} (Abnormal) Range: 0.0-30.0 Microalbumin, Urine 1012.1 ug/mL (Abnormal) Range: 0.0-17.0 Comments: Results confirmed ondilution. Creatinine, Urine 82.7 mg/dL (Normal) Range: 15.0-278.0 :24 METABOLIC PANEL, COMPREHENSIVE Comments: PATIENT WAS FASTINGPERFORMED BY: Aheadlin6370 [facility] [id number] (64543) ALT (SGPT) 12 [iU]/L (Normal) Range: 0-32 [...] mg/dL (Abnormal) Range: 65-99 06-Jun-20158:24 LIPID PANEL (18747) Comments: PATIENT WAS FASTINGPERFORMED BY: LabCoSaint Clare's Hospital at SussexTqwnfl2674 [facility] [id number] LDL/HDL Ratio 1.1 {ratio_units} (Normal) Range: 0.0-3.2 [...] Range: 100-199 :30 CBC W/Diff, Automated Comments: [facility] Ycmipuigtu[address] [place], [place], [address] Absolute Lymph 0.83 {X10_3/ul} (Normal) Range: 0.83-4.51 [...] 4.2-5.4 WBC 4.5 K/mm3 (Normal) Range: 4.4-11.0 07-Ann-58421:30 Hemoglobin A1c Comments: [facility] Embrcagymm0802 [address]o [place]Fr[place], [place], [address] HGB A1C 6.1 % (Normal) Range: 4.2-6.3 :30 Magnesium Comments: [facility] Jtdcvhojqc[address] [place], [id number] MG 1.8 mg/dL (Normal) Range: 1.8-2.4 :30 Protein+Creatinine Ratio,Urine Comments: [facility] Lemzzuevdr2[address] [place] [place], [id number] PROT:CRE RATIO 2121 {mg/g_CRE} (Abnormal) Range: 0-200 PROTEIN,UR.RAN. 164.2 mg/dL (Abnormal) UR CREAT 77.40 mg/dL (Normal) :30 Renal Profile Comments: [facility] Nfddtisprd4356 [address] [place]Fr[place], [place], [address] CO2 27.0 mmol/L (Normal) Range: 21.0-32.0 CL [...] 126 mg/dLsuggests DIABETES MELLITUS per A.D.A. criteria. 84-Pia-57210:00 24 HR UR Creatinine Clearance Comments: [facility] Vnsriierot[address] [place], [place], [address] CREAT CLEARANCE 24 ml/min (Abnormal) Range: 100-200 URINE CREAT 20.6 mg/dL (Normal) EST GFR - AA 38 mL/min (Abnormal) Comments: GFR Calc EST GFR 31 mL/min (Abnormal) Comments: Non- GFR Calc SERUM CREAT 1.7 mg/dL (Abnormal) Range: 0.6-1.0 UR TOTAL VOLUME 2800 mL (Normal) UR COLLECT TIME 24.0 {HOURS} (Normal) :00 Protein, Urine 24HR Comments: [facility] Vbkoyyxrkj[address] [place], [place], [id number] 24hr UR PROTEIN 1178.8 {mg/24HR} (Abnormal) URINE PROTEIN 42.1 mg/dL (Abnormal) UR TOTAL VOLUME 2800 mL (Normal) UR COLLECT TIME 24.0 {HOURS} (Normal) 9-Baz-882524:29 Metabolic Panel, Basic Comments: PATIENT NOT FASTINGPERFORMED BY: Iddiction Csdbqn7663 [facility] [id number] Information: [id number] (73948) Calcium, Serum 9.3 mg/dL (Normal) Range: 8.7-10.3 [...] Glucose, Serum 102 mg/dL (Abnormal) Range: 65-99 01-Fem-24463:39 Metabolic Panel, Basic Comments: tuesday; PATIENT NOT FASTINGPERFORMED BY: Aheadlin6370 [facility] [id number] Information: [id number] (01056) Calcium, Serum 9.0 mg/dL (Normal) Range: 8.7-10.3 [...] (Abnormal) Range: 65-99 :32 HgA1C , Office (30162) HgA1C , Office 6.2 % (Normal) Range: 4.6 - 7.1 :31 Rapid Strep Test, Office (06544) Comments: neg Rapid Strep Test, Office Negative (Normal) :06 THROAT CULTURE (76480) Comments: PATIENT NOT FASTINGPERFORMED BY: [employer] Huqrgh4723 [facility] [id number] Information: [id number] Result 1 RRF (Normal) Comments: Routine respiratory luis Upper Respiratory Culture Final report (Normal) :52 TSH (53270) Comments: PATIENT WAS FASTINGPERFORMED BY: Accelera InnovationsCoSaint Clare's Hospital at SussexRvwrxd2832 [facility] [id number] TSH 2.190 {uIU/mL} (Normal) Range: 0.450-4.500 :52 Vitamin D Hydroxy (07256) Comments: PATIENT WAS FASTINGPERFORMED BY: Office DepotGallup Indian Medical CenterNtxjjd2961 [facility] [id number] Vitamin D, 25-Hydroxy 43.8 ng/mL (Normal) Range: 30.0-100.0 Comments: Vitamin D deficiency has been defined by the [place] of[place]icine and an Endocrine Society practice guideline as alevel of serum 25-OH vitamin D less than 20 ng/mL (1,2).The Endocrine Society went on to further define vitamin Dinsufficiency as a level between 21 and 29 ng/mL (2).1. IOM ([place] [employer]). 2010. Dietary reference intakes for calcium and D. [place]: The National Academies Press.2. Mira MF, Rosette LOPEZ, Tommy SWAIN, et al. Evaluation, treatment, and prevention of vitamin D deficiency: an Endocrine Society clinical practice guideline. JCEM. 2010; 96(7):1911-30. :52 LIPID PANEL (50198) Comments: PATIENT WAS FASTINGPERFORMED BY: [employer]70 [facility]of[facility] SoftwareColumbus Regional [facility] System [id number] LDL/HDL Ratio 1.3 {ratio_units} (Normal) Range: 0.0-3.2 [...] auto diff Comments: PATIENT WAS FASTINGPERFORMED BY: [employer] I[id number] [facility] [id number] Information: [id number], [id number] (00482) Immature Grans (Abs) 0.0 {x10E3/uL} (Normal) Range: [...] WAS FASTINGPERFORMED BY: LabCoSaint Clare's Hospital at SussexUyxkfu2970 [facility] [id number] (45884) ALT (SGPT) 19 [iU]/L (Normal) Range: 0-32 [...] Glucose, Serum 127 mg/dL (Abnormal) Range: 65-99 3-Ssf-369848:08 HgA1C , Office (17166) HgA1C , Office 6.4 % (Normal) Range: 4.6 - 7.1 2-Kip-445997:00 Creatinine Clearance Comments: PATIENT NOT FASTINGPERFORMED BY: Aheadlin6370 [facility] [id number] Information: [id number] S TART Creatinine Clearance 33 mL/min (Abnormal) Range: 88-128 Comments: The above range is based on 1.73 square meter average body surfacearea. Creatinine, Ur 24hr 642.0 {mg/24_hr} (Abnormal) Range: 800.0-1800.0 Creatinine, Urine 34.7 mg/dL (Normal) Range: 15.0-278.0 eGFR If Africn Am 43 mL/min/1.73 (Abnormal) eGFR If NonAfricn Am 37 mL/min/1.73 (Abnormal) Creatinine, Serum 1.37 mg/dL (Abnormal) Range: 0.57-1.00 6-Uxq-332102:00 Protein Total, Qn, 24-Hr Comments: PATIENT NOT FASTINGPERFORMED BY: Aheadlin6370 [facility] [id number] Urine Prot,24hr calculated 1309.8 {mg/24_hr} (Abnormal) Range: 30.0-150.0 Protein,Total,Urine 70.8 mg/dL (Abnormal) Range: 0.0-15.0 :01 CBC W/Diff, Automated Comments: Test performed at:[facility] [address] [place] [address] Absolute Neut 3.1 {X10_3/uL} (Normal) [...] Range: 4.4-11.0 :01 Magnesium Comments: Test performed at:[facility] A[address]os[address] [place] [address] MG 2.0 mg/dL (Normal) Range: 1.8-2.4 :01 Protein+Creatinine Ratio,Urine Comments: Test performed at:[facility] [address] [place] [address] PROT:CRE RATIO 2232 {mg/g_CRE} (Abnormal) Range: 0-200 PROTEIN,UR.RAN. 160.3 mg/dL (Abnormal) UR CREAT 71.8 mg/dL (Normal) :01 Renal Profile Comments: Test performed at:[facility] [address] [place] [address] CO2 32.0 mmol/L (Normal) Range: 21.0-32.0 CL [...] mg/dL (Normal) Range: 70-110 :08 LIPID PANEL (98229) Comments: PATIENT WAS FASTINGPERFORMED BY: LabCoSaint Clare's Hospital at SussexOcpkih7850 [facility] [id number] LDL/HDL Ratio 1.0 {ratio_units} (Normal) Range: 0.0-3.2 [...] METABOLIC PANEL, Comments: PATIENT WAS FASTINGPERFORMED BY: EVE LabCoGallup Indian Medical CenterCcbien6323 [facility] [id number] Information: [id number] COMPREHENSIVE (09107) ALT (SGPT) 29 [iU]/L (Normal) Range: 0-32 [...] (Abnormal) Range: 65-99 :59 HgA1C , Office (23070) HgA1C , Office 6.5 % (Normal) Range: 4.6 - 7.1 :54 CBC W/AUTO DIFF WBC Comments: PATIENT WAS FASTINGPERFORMED BY: EVE Office DepotSaint Clare's Hospital at SussexHswrjj2863 [facility] [id number] Information: [id number] (47668) Immature Grans (Abs) 0.0 {x10E3/uL} (Normal) Range: [...] PANEL, COMPREHENSIVE Comments: PATIENT WAS FASTINGPERFORMED BY: [facility]el[facility] InnovationsAsp[facility] Hospital6370 [facility] [id number]; non- emergent till apt (97925) ALT (SGPT) 13 [iU]/L (Normal) Range: 0-32 [...] Glucose, Serum 142 mg/dL (Abnormal) Range: 65-99 36-Hnc-29636:54 LIPID PANEL (78388) Comments: PATIENT WAS FASTINGPERFORMED BY: LabCoSaint Clare's Hospital at SussexDatlbk1945 [facility] [id number] LDL/HDL Ratio 1.1 {ratio_units} (Normal) Range: 0.0-3.2 [...] Cholesterol, Total 140 mg/dL (Normal) Range: 100-199 2-Cpc-554982:29 HgA1C , Office (35538) HgA1C , Office 6.6 % (Normal) Range: 4.6 - 7.1 :12 CBC W/Diff, Automated Comments: Test performed at:[facility] [address] [place], [place] [id number] ; handled by Dr. Santana Absolute Lymph [...] Range: 4.4-11.0 :12 Magnesium Comments: Test performed at:[facility] [address] [place] [address] MG 2.0 mg/dL (Normal) Range: 1.8-2.4 91-Yof-56912:12 Microalb:Creat Ratio,Random UR Comments: Test performed at:[facility] [address]zb[address] [facility] [place] [address] ; Dr. Angelo LING:CREAT 1483.0 {mg/g_CRE} (Abnormal) MICROALBUMIN,UR 918.0 mg/L (Normal) UR CREAT 61.9 mg/dL (Normal) 26-Tkr-24127:12 Renal Profile Comments: Test performed at:[facility] [address]uqwmnmzh06[address] [facility] [place] [place] [address] CO2 29.0 mmol/L (Normal) Range: 21.0-32.0 CL [...] 126 mg/dLsuggests DIABETES MELLITUS per A.D.A. criteria. 85-Xbo-305857:20 LIPID PANEL (97365) Comments: PATIENT WAS FASTINGPERFORMED BY: LabCo Phqgxh7677 [facility] [id number] LDL/HDL Ratio 1.0 {ratio_units} (Normal) Range: 0.0-3.2 [...] Cholesterol, Total 151 mg/dL (Normal) Range: 100-199 58-Wvu-804069:20 METABOLIC PANEL, Comments: PATIENT WAS FASTINGPERFORMED BY: LabCoSaint Clare's Hospital at SussexUasuae2796 [facility] [id number] Information: [id number] COMPREHENSIVE (75725) ALT (SGPT) 16 [iU]/L (Normal) Range: 0-32 [...] Glucose, Serum 148 mg/dL (Abnormal) Range: 65-99 34-Vvl-504400:21 CREATININE CLEARANCE Comments: PATIENT WAS FASTINGPERFORMED BY: [facility]6370 [facility] [id number] Information: [id number] START 04/02/14@9AM FINISH 04/03/14 6:00 AM (22133) Creatinine Clearance 42 mL/min (Abnormal) Range: 88-128 Comments: The above range is based on 1.73 square meter average body surfacearea. Creatinine, Ur 24hr 812.3 {mg/24_hr} (Normal) Range: 800.0-1800.0 Creatinine, Urine 28.5 mg/dL (Normal) Range: 15.0-278.0 eGFR If Africn Am 45 mL/min/1.73 (Abnormal) eGFR If NonAfricn Am 39 mL/min/1.73 (Abnormal) Creatinine, Serum 1.33 mg/dL (Abnormal) Range: 0.57-1.00 00-Iqw-516429:21 Total Protein,24 Hour Urine Comments: PATIENT WAS FASTINGPERFORMED BY: [facility]el[facility] InnovationsAsp[facility] Hospital6370 [facility] [id number] (36372) Prot,24hr calculated 1559.0 {mg/24_hr} (Abnormal) Range: 30.0-150.0 Protein,Total,Urine 54.7 mg/dL (Abnormal) Range: 0.0-15.0 :57 LIPID PANEL (15148) Comments: PATIENT WAS FASTINGPERFORMED BY: Office DepotSaint Clare's Hospital at SussexZcmird4914 [facility] [id number] LDL/HDL Ratio 1.1 {ratio_units} (Normal) Range: 0.0-3.2 [...] MANUAL DIFF Comments: PATIENT WAS FASTINGPERFORMED BY: [employer] Awtanl3965 [facility] [id number] Information: [id number] (68398) Immature Grans (Abs) 0.0 {x10E3/uL} (Normal) Range: [...] PANEL, COMPREHENSIVE Comments: PATIENT WAS FASTINGPERFORMED BY: [employer] Gkzqsq3187 [facility] [id number] (77374) ALT (SGPT) 10 [iU]/L (Normal) Range: 0-32 [...] Units: mg/dL AdultPerformed at: CB - [facility] Wsvrxv99[address] [place], [place] [id number] Director: Yousuf Bernardo PhD, Phone: [phone] C4 37 (Abnormal) Range: 9-36 0 [...] 4.2-5.4 WBC 4.6 K/mm3 (Normal) Range: 4.4-11.0 02-Wez-74168:00 CMP GAP 3 (Abnormal) Range: 5-15 CO2 [...] 75.6 mg/dL (Abnormal) CREU 49.3 mg/dL (Normal) 77-Iur-08303:21 CBC WITH MANUAL DIFF Comments: PATIENT WAS FASTINGPERFORMED BY: [facility] Cytyva9522 [facility] [id number] Information: [id number] (74965) Immature Grans (Abs) 0.0 {x10E3/uL} (Normal) Range: [...] 3.77-5.28 WBC 4.5 {x10E3/uL} (Normal) Range: 3.4-10.8 43-Uyj-38253:21 METABOLIC PANEL, COMPREHENSIVE Comments: PATIENT WAS FASTINGPERFORMED BY: [facility]6370 [facility] [id number] (29420) ALT (SGPT) 16 [iU]/L (Normal) Range: 0-32 [...] Glucose, Serum 132 mg/dL (Abnormal) Range: 65-99 03-Dhh-776028:53 CREATININE CLEARANCE Comments: PATIENT NOT FASTINGPERFORMED BY: EVE [employer] Loot [facility] [id number] Information: [id number] START 10/30/13@8AM F INISH 10/31/13@8AM 2650ML (88986) Creatinine Clearance 44 mL/min (Abnormal) Range: 88-128 [...] Hour Urine Comments: PATIENT NOT FASTINGPERFORMED BY: WishLink70 [facility] [id number] (28157) Prot,24hr calculated 3458.3 {mg/24_hr} (Abnormal) Range: 30.0-150.0 Protein,Total,Urine 130.5 mg/dL (Abnormal) Range: 0.0-15.0 05-Fww-547610:31 HgA1C , Office (97143) HgA1C , Office 6.4 % (Normal) Range: 4.6 - 7.1 48-Zvm-824322:27 Microscopic Examination Comments: PATIENT WAS FASTINGPERFORMED BY: EVE [employer] L[employer] [facility] [id number] Bacteria Few (Normal) Mucus Threads Present (Normal) Epithelial Cells (non renal) 0-10 {/hpf} (Normal) Range: 0 - 10 RBC 3-10 {/hpf} (Abnormal) Range: 0 - 2 WBC 6-10 {/hpf} (Abnormal) Range: 0 - 5 :32 LIPID PANEL (17575) Comments: PATIENT WAS FASTINGPERFORMED BY: Office DepotSaint Clare's Hospital at SussexBubmnv1448 [facility] [id number] LDL/HDL Ratio 1.0 {ratio_units} (Normal) Range: 0.0-3.2 [...] CREATININE RATIO Comments: PATIENT WAS FASTINGPERFORMED BY: Office DepotSaint Clare's Hospital at SussexWhjkdw9350 [facility] [id number] (21967) AND (40976) Microalb/Creat Ratio 1998.9 {mg/g_creat} (Abnormal) Range: 0.0-30.0 Creatinine, Urine 73.4 mg/dL (Normal) Range: 15.0-278.0 Microalbumin, Urine 1467.2 ug/mL (Abnormal) Range: 0.0-17.0 :32 URINALYSIS, W/ MICRO (56789) Comments: PATIENT WAS FASTINGPERFORMED BY: Office DepotSaint Clare's Hospital at SussexGvdike1455 [facility] [id number] Microscopic Examination See below: (Normal) Comments: Microscopic was indicated and was performed. Nitrite, Urine Negative (Normal) Urobilinogen,Semi-Qn 0.2 mg/dL (Normal) Range: 0.0-1.9 Bilirubin Negative (Normal) Occult Blood Trace (Abnormal) Ketones Negative (Normal) Glucose Negative (Normal) Protein 3+ (Abnormal) WBC Esterase Trace (Abnormal) Appearance Clear (Normal) Urine-Color Yellow (Normal) pH 6.5 (Normal) Range: 5.0-7.5 Specific [place] 1.015 (Normal) Range: 1.005-1.030 :32 CBC WITH MANUAL DIFF Comments: PATIENT WAS FASTINGPERFORMED BY: Office DepotSaint Clare's Hospital at SussexTauscm5065 [facility] [id number] Information: [id number] (71266) Immature Grans (Abs) 0.0 {x10E3/uL} (Normal) Range: [...] PANEL, COMPREHENSIVE Comments: PATIENT WAS FASTINGPERFORMED BY: [facility]el[facility] InnovationsAsp[facility] Hospital6370 [facility] [id number] (41969) ALT (SGPT) 16 [iU]/L (Normal) Range: 0-32 [...] Glucose, Serum 135 mg/dL (Abnormal) Range: 65-99 21-Ugz-41010:32 VITAMIN B-12 (CYANOCOBALAMIN) Comments: PATIENT WAS FASTINGPERFORMED BY: EVE Office DepotSaint Clare's Hospital at SussexMufkbi3285 [facility] [id number] (57190) Vitamin B12 >1999 pg/mL (Abnormal) Range: 211-946 67-Njp-702692:01 HgA1C , Office (41831) HgA1C , Office 6.4 % (Normal) Range: 4.6 - 7.1 :37 METABOLIC PANEL, COMPREHENSIVE Comments: PATIENT WAS FASTINGPERFORMED BY: Office DepotGallup Indian Medical CenterQxnhjh0745 [facility] [id number] (07579) ALT (SGPT) 12 [iU]/L (Normal) Range: 0-32 [...] Glucose, Serum 130 mg/dL (Abnormal) Range: 65-99 53-Lbl-03486:37 Vitamin D Hydroxy (41287) Comments: PATIENT WAS FASTINGPERFORMED BY: [facility] Tjgktz6648 [facility] [id number] Vitamin D, 25-Hydroxy 47.4 ng/mL (Normal) Range: 30.0-100.0 Comments: Vitamin D deficiency has been defined by the [place] and an Endocrine Society practice guideline as alevel of serum 25-OH vitamin D less than 20 ng/mL (1,2).The Endocrine Society went on to further define vitamin Dinsufficiency as a level between 21 and 29 ng/mL (2).1. IOM ([place] of [employer]). 2010. Dietary reference intakes for calcium and D. [place]: The National Academies Press.2. iMra MF, Rosette LOPEZ, Tommy SWAIN, et al. Evaluation, treatment, and prevention of vitamin D deficiency: an Endocrine Society clinical practice guideline. JCEM. 2010; 96(7):1911-30. :37 LIPID PANEL (83892) Comments: PATIENT WAS FASTINGPERFORMED BY: RotaPost6370 [facility] [id number] LDL/HDL Ratio 1.2 {ratio_units} (Normal) Range: 0.0-3.2 [...] MANUAL DIFF Comments: PATIENT WAS FASTINGPERFORMED BY: [employer] Mknioj4589 [facility] [id number] Information: [id number] (91851) Immature Grans (Abs) 0.0 {x10E3/uL} (Normal) Range: [...] Qn, 24-Hr Comments: PATIENT NOT FASTINGPERFORMED BY: [employer] Wvukpc5866 [facility] [id number] Information: ADD [id number] AND DRAW FEE 99 6660 VOLUME 2600 164LBS 5' '3 Urine Prot,24hr calculated 920.4 {mg/24_hr} Range: 30.0-150.0 (Abnormal) Protein,Total,Urine 35.4 mg/dL Range: 0.0-15.0 (Abnormal) : Written Authorization WAR (Normal) Comments: PATIENT NOT FASTINGPERFORMED BY: [employer] Zhaxof6123 [facility] [id number] Comments: Written Authorization Received.Authorization received from Chiqui BRICEÑO LPN [id number] by Marleen Sharma :52 Metabolic Panel, Basic Comments: PATIENT NOT FASTINGPERFORMED BY: Office DepotVictoria [place] 0112070 [facility] [id number] Information: ADD [id number] AND DRAW FEE 99 6660 VOLUME 2600 164LBS 5' '3 (88895) Calcium, Serum 9.7 mg/dL (Normal) Range: 8.6-10.2 [...] mg/dL (Abnormal) Range: 65-99 :52 CREATININE CLEARANCE (68899) Comments: PATIENT NOT FASTINGPERFORMED BY: [facility] [id number] Creatinine Clearance 46 mL/min (Abnormal) Range: 88-128 Comments: The above range is based on 1.73 square meter average body surfacearea. Creatinine, Ur 24hr 899.6 {mg/24_hr} (Normal) Range: 800.0-1800.0 Creatinine, Urine 34.6 mg/dL (Normal) Range: 15.0-278.0 :52 24 hour urine for Protein Comments: PATIENT NOT FASTINGPERFORMED BY: [facility]ilaColumb[facility] [id number] (57825) Microalb/Creat Ratio 695.4 {mg/g_creat} (Abnormal) Range: 0.0-30.0 Microalbumin, Urine 240.6 ug/mL (Abnormal) Range: 0.0-17.0 :13 HgA1C , Office (29384) HgA1C , Office 6.3 % (Normal) Range: 4.6 - 7.1 :01 Blood Glucose , Office (98671) Blood Glucose , Office 162 (Normal) :02 Microscopic Examination Comments: PATIENT NOT FASTINGPERFORMED BY: [employer] [facility] EntertainmentCritical access hospital [id number] Bacteria Few (Normal) Mucus Threads Present (Normal) Epithelial Cells (non renal) 0-10 {/hpf} (Normal) Range: 0 - 10 RBC 0-3 {/hpf} (Normal) Range: 0 - 3 WBC 0-5 {/hpf} (Normal) Range: 0 - 5 86-Tss-684314:43 ABDOMEN/PELVIS WITH CONTRAST Radiology Report See Note [...] Hebert M.D.October 19, 2012 at 2:42:14 PM [id number] Signed GP/GP If you are the referring physician and would like to consult [facility] theradiologist who provided this interpretation, please contact Yasmany Pond at [phone]. If this radiologist is unavailable, youwill be directed to another radiologist to assist. If y ou are a patient with a question regarding this report, pleasecontactyour referring physician directly. Professional Interpretation Provided By: [employer], Phone , These documents contain legally protected [...] 10/19/12 1444 Sign by: Misael Hebert MD 84-Lmp-908595:59 TSH (77593) Comments: PATIENT WAS FASTINGPERFORMED BY: [facility] Txbuzx1544 [facility] [id number] TSH 1.230 {uIU/mL} (Normal) Range: 0.450-4.500 14-Xxn-517639:59 LIPID PANEL (90395) Comments: PATIENT WAS FASTINGPERFORMED BY: [facility] Zkauws7783 [facility] [id number] LDL/HDL Ratio 0.5 {ratio_units} (Normal) Range: 0.0-3.2 LDL Cholesterol Calc 47 mg/dL (Normal) Range: 0-99 Cholesterol, Total 149 mg/dL (Normal) Range: 100-199 HDL Cholesterol 91 mg/dL (Normal) Comments: According to ATP-III Guidelines, HDL-C >59 mg/dL is considered anegative risk factor for CHD. Triglycerides 57 mg/dL (Normal) Range: 0-149 VLDL Cholesterol Cesar 11 mg/dL (Normal) Range: 5-40 82-Sys-397026:02 URINALYSIS, W/ MICRO Comments: PATIENT NOT FASTINGPERFORMED BY: [place] DepotVictor[place] 0112070 [facility] [id number] Information: [id number] (96723) Microscopic Examination See below: (Normal) Nitrite, Urine Negative (Normal) Bilirubin Negative (Normal) Urobilinogen,Semi-Qn 0.2 mg/dL (Normal) Range: 0.0-1.9 Occult Blood Negative (Normal) Ketones Negative (Normal) Glucose Negative (Normal) Protein 3+ (Abnormal) WBC Esterase Negative (Normal) Appearance Clear (Normal) Urine-Color Yellow (Normal) pH 5.5 (Normal) Range: 5.0-7.5 Specific [place] 1.015 (Normal) Range: 1.005-1.030 42-Axa-910962:59 CBC WITH MANUAL DIFF Comments: PATIENT WAS FASTINGPERFORMED BY: [facility]6370 [facility] [id number] Information: [id number] (41876) Immature Grans (Abs) 0.0 {x10E3/uL} (Normal) Range: [...] 3.77-5.28 WBC 4.8 {x10E3/uL} (Normal) Range: 3.4-10.8 79-Elr-119647:59 METABOLIC PANEL, COMPREHENSIVE Comments: PATIENT WAS FASTINGPERFORMED BY: LabAsp[facility] Hospital6370 [facility] [id number] (99146) ALT (SGPT) 14 [iU]/L (Normal) Range: 0-32 [...] Glucose, Serum 104 mg/dL (Abnormal) Range: 65-99 0-Lgu-198267:37 HgA1C , Office (49452) HgA1C , Office 6.0 % (Normal) Range: 4.6 - 7.1 3-Pyg-602978:31 CRE CREAT 1.3 mg/dL (Abnormal) Range: 0.6-1.0 [...] Galan M.D.August 09, 2012 at 2:38:03 PM [id number] Signed PV/PV If you are the referring physician and would like to consult with theradiologist who provided this interpretation, please contact Donna Burnett M.D. at [phone]. If this radiologist is unavailable, youwillbe directed to another radiologist to assist. If you are a patient with a question regarding this report, pleasecontactyour referring physician evelyne cowan. Professional Interpretation Provided By: [employer], Phone , These documents contain legally protected [...] 08/09/12 1441 Sign by: Donna Martin MD 45-Mqi-131556:31 CBC with manual diff Comments: PATIENT NOT FASTINGPERFORMED BY: LabCoSaint Clare's Hospital at SussexIjxqpp5027 [facility] [id number] Information: [id number] (42603) Immature Grans (Abs) 0.0 {x10E3/uL} (Normal) Range: [...] Panel, Comprehensive Comments: PATIENT NOT FASTINGPERFORMED BY: [employer] Apropose [facility] [id number] (30672) ALT (SGPT) 19 [iU]/L (Normal) Range: 0-32 [...] mg/dL (Abnormal) Range: 65-99 :31 LIPID PANEL (31000) Comments: PATIENT WAS FASTINGPERFORMED BY: Office DepotSaint Clare's Hospital at SussexVkecrw3064 [facility] [id number] LDL/HDL Ratio 0.8 {ratio_units} (Normal) Range: 0.0-3.2 [...] WAS FASTINGPERFORMED BY: LabCoSaint Clare's Hospital at SussexYvwcfz4530 [facility] [id number] Information: [id number] (96944) Immature Grans (Abs) 0.0 {x10E3/uL} (Normal) Range: [...] COMPREHENSIVE Comments: PATIENT WAS FASTINGPERFORMED BY: [facility] Acguwf7442 [facility] [id number] (76934) ALT (SGPT) 22 [iU]/L (Normal) Range: 0-32 [...] (Abnormal) Range: 65-99 :45 HgA1C , Office (35810) HgA1C , Office 6.1 % (Normal) Range: 4.6 - 7.1 10-Kry-284184:16 CRE CREAT 1.1 mg/dL (Abnormal) Range: 0.6-1.0 32-Eda-37002:00 BRAIN W/WO CONTRAST Radiology Report See Note [...] Galan M.D.February 02, 2012 at 5:10:18 PM [id number] Signed PV/PV If you are the referring physician and w ould like to consult with theradiologist who provided this interpretation, please contact Donna Burnett M.D. at [phone]. If this radiologist is unavailable, youwillbe directed to another radiol ogist to assist. If you are a patient with a question regarding this report, pleasecontactyour referring physician directly. Professional Interpretation Provided By: Reta, Phone ,Fa x [phone] These documents contain legally protected and confidential [...] Mario MANN,Donna on 02/02/121713 S ign by: Donna Martin MD 07-Asf-035308:16 DEXA BONE DENSITY STUDY (HP) Radiology Report [...] Coronel M.D.January 20, 2012 at 2:43:46 PM [id number] Signed KERA/KERA If you ar e the [...] 01/20/12 1447 Sign by: David Coronel MD 70-Ped-824736:15 BILAT SCRN DIGITAL & CAD Radiology Report [...] Coronel M.D.January 20, 2012 at 1:20:11 PM [id number] Signed KERA/KERA If you are the referring physician and would like to consult with theradiologist who provided this interpretation, please contact Yasmany Parnell at . If this radiologist is unavailable,youwill be directed to another radiologist to assist. If you are a patient with a question regarding this report, pleasecontactyour referring physician directly. Professional Interpretation Provided By: [employer], Phone , These documents contain legally protected [...] 01/20/12 1324 Sign by: David Coronel MD 4-Mkh-379415:56 PELVIC (NON ) Radiology Report See Note [...] Vuong M.D.January 10, 2012 at 8:39:09 PM [id number] Signed JL/JL If you are the referring physician and would like to consult with theradiologist who provided this inte rpretation, please contact Radha Vuong M.D. at [phone]. If this radiologist is unavailable, you will bedirected to another radiologist to assist. If you are a patient with a question regarding this r eport, pleasecontactyour referring physician directly. Professional Interpretation Provided By: [employer], Phone , PROCEDURE: ULTRASOUND OF THE FEMALE [...] Vuong M.D.January 10, 2012 at 8:40:07 PM [id number] Signed JL/JOHNNY If you are the referring physician and would like to consult with theradiologist who provided this interpretation, please contact Radha Vuong M.D. at [phone]. If this radiologist is unavailable, you will bedirected to another radiologist to assist. If you are a patient with a question regarding this report, pleasecontactyour referring ysician directly. Professional Interpretation Provided By: [employer], Phone , These documents contain legally protected [...] Dictated on 01/10/12 1309 by Nahum VUONG MDmethodist hospital of [facility] ribed on 01/11/12 1113 by ITS IMPORTSign by RADHA VUONG MD on 01/11/12 1114 Sign by: RADHA VUONG MD 94-Ucv-00267:35 MICROALBUMIN: CREATININE RATIO Comments: PATIENT WAS FASTINGPERFORMED BY: [facility]6370 [facility] [id number] (25771) AND (06166) Microalb/Creat Ratio 829.4 {mg/g_creat} (Abnormal) Range: 0.0-30.0 Microalbumin, Urine 437.1 ug/mL (Abnormal) Range: 0.0-17.0 Creatinine, Urine 52.7 mg/dL (Normal) Range: 15.0-278.0 :35 CBC WITH MANUAL DIFF Comments: PATIENT WAS FASTINGPERFORMED BY: [facility]6370 [facility] [id number] Information: [id number] (00127) Immature Grans (Abs) 0.0 {x10E3/uL} (Normal) Range: [...] PANEL, COMPREHENSIVE Comments: PATIENT WAS FASTINGPERFORMED BY: [employer] Apropose [facility] [id number] (40420) ALT (SGPT) 15 [iU]/L (Normal) Range: 0-32 [...] mg/dL (Abnormal) Range: 65-99 :35 LIPID PANEL (24483) Comments: PATIENT WAS FASTINGPERFORMED BY: Office DepotGallup Indian Medical CenterEwzgme6981 [facility] [id number] LDL/HDL Ratio 0.9 {ratio_units} (Normal) Range: 0.0-3.2 LDL Cholesterol Calc 72 mg/dL (Normal) Range: 0-99 HDL Cholesterol 83 mg/dL (Normal) Comments: According to ATP-III Guidelines, HDL-C >59 mg/dL is considered anegative risk factor for CHD. VLDL Cholesterol Cesar 18 mg/dL (Normal) Range: 5-40 Triglycerides 90 mg/dL (Normal) Range: 0-149 Cholesterol, Total 173 mg/dL (Normal) Range: 100-199 :15 HgA1C , Office (51787) HgA1C , Office 6.2 % (Normal) Range: 4.6 - 7.1 :30 CBC WITH MANUAL DIFF Comments: PATIENT WAS FASTINGPERFORMED BY: [facility]Asp[facility]6370 [facility] [id number] Information: [id number] (67886) Immature Grans (Abs) 0.0 {x10E3/uL} (Normal) Range: [...] PANEL, COMPREHENSIVE Comments: PATIENT WAS FASTINGPERFORMED BY: [facility]ilaColumb[facility] [id number] (46165) ALT (SGPT) 19 [iU]/L (Normal) Range: 0-40 [...] mg/dL (Abnormal) Range: 65-99 :30 LIPID PANEL (22436) Comments: PATIENT WAS FASTINGPERFORMED BY: [employer] [place] [id number] LDL/HDL Ratio 0.9 {ratio_units} (Normal) Range: 0.0-3.2 [...] note reference interval change :48 Rapid Flu (82025 x 2) Influenza A Ag negative (Normal) [...] redmond M.D.November 05, 2011 at 3:25:08 PM [id number] Signed GP/GP If you are the referring physician and would like to consult with theradiologist who provided this interpretation, please contact Yasmany Pond at [phone]. If this radiologist is unavailable, youwill be directed to another radiologist to assist. If you are a patient with a question regarding this report, ple asecontactyour referring physician directly. Professional Interpretation Provided By: [employer], Phone , These documents contain legally protected [...] Hebert MD on 11/05/11 155 Sign by: Singh MANN,Misael 05-Nov-20110:00 PELVIS WITH [...] redmond M.D.November 05, 2011 at 3:25:08 PM [id number] Signed GP/GP If you are the referring physician and would like to consult with theradiologist who provided this interpretation, please contact Yasmany Pond at [phone]. If this radiologist is unavailable, youwill be directed to another radiologist to assist. If you are a patient with a question regarding this report, ple asecontactyour referring physician directly. Professional Interpretation Provided By: [employer], Phone , These documents contain legally protected [...] 11/05/11 1552 Sign by: Misael Hebert MD 51-Vqr-749810:20 METABOLIC PANEL, Comments: PATIENT WAS FASTINGPERFORMED BY: [facility]6370 [facility] [id number] Information: B42072,2ND ORDER NO DRAW F EE COMPREHENSIVE (82972) ALT (SGPT) 31 [iU]/L (Normal) Range: 0-40 [...] Creatinine Clearance Comments: PATIENT WAS FASTINGPERFORMED BY: WishLink70 [facility]ofio SoftwareColumbus Regional Healthcare System [id number] Information: 10/30@6AM 10/31@730AM Creatinine Clearance 58 mL/min [...] Qn, 24-Hr Comments: PATIENT WAS FASTINGPERFORMED BY: [employer]6[address] [facility] [id number] Urine Prot,24hr calculated 1023.8 {mg/24_hr} (Abnormal) Range: 30.0-150.0 Protein,Total,Urine 52.5 mg/dL (Abnormal) Range: 0.0-15.0 :04 HgA1C , Office (08430) HgA1C , Office 6.1 % (Normal) Range: [...] regarding this repor t, please call our 24Y7umoejjd line @ Dictated on 07/27/11 1040 by GAYE PEREZ MD RTranscribed on 07/28/11 122 by ITS IMPORTSign by GAYE PEREZ MD on 07/28/111224 Sign by: GAYE PEREZ MD 58-Bdn-66804:54 Vitamin D Hydroxy (09414) Comments: PATIENT WAS FASTINGPERFORMED BY: [facility]Asp[facility]6370 [facility] [id number] Vitamin D, 25-Hydroxy 48.8 ng/mL (Normal) Range: 30.0-100.0 Comments: Vitamin D deficiency has been defined by the [place] and an Endocrine Society practice guideline as alevel of serum 25-OH vitamin D less than 20 ng/mL (1,2).The Endocrine Society went on to further define vitamin Dinsufficiency as a level between 21 and 29 ng/mL (2).1. IOM ([place] of [place]). 2010. Dietary reference intakes for calcium and D. [place]: The National Academies Press.2. Mira MF, [place], Tommy SWAIN, et al. Evaluation, treatment, and prevention of vitamin D deficiency: an Endocrine Society clinical practice guideline. JCEM. 2010; 96(7):1911-30. :54 LIPID PANEL (59030) Comments: PATIENT WAS FASTINGPERFORMED BY: Office DepotSaint Clare's Hospital at SussexHnlpbw0198 [facility] [id number] LDL/HDL Ratio 1.0 {ratio_units} (Normal) Range: 0.0-3.2 [...] MANUAL DIFF Comments: PATIENT WAS FASTINGPERFORMED BY: Office DepotSaint Clare's Hospital at SussexOkkrcu7514 [facility] [id number] Information: ADD U54180 AND DRAW FEE 99 1725 (46905) Immature Grans (Abs) 0.0 {x10E3/uL} (Normal) Range: [...] WAS FASTINGPERFORMED BY: LabCoSaint Clare's Hospital at SussexBpxiju8025 [facility] [id number] (19865) ALT (SGPT) 48 [iU]/L (Abnormal) Range: 0-40 [...] (Abnormal) Range: 65-99 :18 HgA1C , Office (46096) HgA1C , Office 6.1 % (Normal) Range: 4.6 - 7.1 :18 Blood Glucose , Office (26097) Blood Glucose , Office 103 (Normal) 73-Zkv-65558:00 ABDOMEN WITH AND W/O CONTRAST Radiology Report [...] radiologist regarding this report, please call our 93S5auveabi line @ Dictated on 03/18/11 1715 by Serge Pugh MDranscribed on 03/22/11 1401 by ITS IMPORTSign by Jeanette Hill MD on 03/22/11 1402 Sign by: Jeanette Pugh MD 70-Qap-359304:29 SERUM CRE & GFR CREAT,SERUM 1.1 mg/dL (Abnormal) Range: 0.6-1.0 09-Gqm-30684:00 BRAIN W/WO CONTRAST Radiology Report See Note [...] 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 The cortical [...] ischemic changes. Dictated on 03/02/11 1330 by Donna Martin MDTranscribed on 03/02/11 1729 by ITS IMPORTSign by Donna Martin MD on 03/02/11 1730 Sign by: Donna Martin MD 25-Hyi-74978:00 UPPER EXT. JOINT ONLY(ROUTINE) Radiology Report See [...] on 03/04/11 103 Sign by: Ankur Duncan 53-Kqn-639894:08 SHOULDER,MIN 2 VIEWS Radiology Report See Note [...] on 01/29/111715 Sign by: Aakash Barbosa MD 35-Mqi-68048:44 ABDOMEN/PELVIS WITH CONTRAST Radiology Report See Note [...] 02/01/11 1021 Sign by: ALEJANDRO DRUMMOND DO 49-Njy-455225:57 SINUS/FACIAL BONE Radiology Report See Note (Normal) [...] MD on 01/19/11 1448 Sign by: Singh MANN,Misael 08-Tob-87107:00 BRAIN W/WO CONTRAST Radiology Report See Note [...] addition, there is a small region of wqrsvquzuK2takccsedgt along the anterior margin of the mass, [...] on 01/19/111650 Sign by: GAYE PEREZ MD 03-Ijv-80662:00 BRAIN/HEAD W/WO CONTRAST Radiology Report See Note [...] 01/19/11 1447 Sign by: Misael Hebert MD 00-Boh-257983:08 BILAT SCRN DIGITAL & CAD Radiology Report [...] 01/19/11 0849 Sign by: Misael Hebert MD :20 MICROALBUMIN: CREATININE RATIO Comments: PATIENT NOT FASTINGPERFORMED BY: LabCoSaint Clare's Hospital at SussexQyetds4437 [facility] [id number] (61164) AND (13512) Microalb/Creat Ratio 1028.4 {mg/g_creat} (Abnormal) Range: 0.0-30.0 Microalbumin, Urine 1341.0 ug/mL (Abnormal) Range: 0.0-17.0 Creatinine, Urine 130.4 mg/dL (Normal) Range: 15.0-278.0 :20 CBC WITH MANUAL DIFF (32278) Comments: PATIENT NOT FASTINGPERFORMED BY: LabCoGallup Indian Medical CenterVulhfn6848 [facility] [id number] Immature Grans (Abs) 0.0 {x10E3/uL} (Normal) Range: [...] {x10E3/uL} (Normal) Range: 4.0-10.5 :20 LIPID PANEL (84320) Comments: PATIENT NOT FASTINGPERFORMED BY: [employer]headlin6370 [facility] [id number] LDL/HDL Ratio 0.9 {ratio_units} (Normal) Range: 0.0-3.2 [...] PANEL, COMPREHENSIVE Comments: PATIENT NOT FASTINGPERFORMED BY: Clinipace WorldWideSaint Clare's Hospital at SussexEpogqe2094 [facility] [id number] (23002) ALT (SGPT) 28 [iU]/L (Normal) Range: 0-40 [...] (Abnormal) Range: 65-99 :39 HgA1C , Office (45640) HgA1C , Office 6.5 % (Normal) Range: 4.6 - 7.1 :39 Blood Glucose , Office (15897) Blood Glucose , Office 128 (Normal) 7-Swf-034225:19 CBC With Differential/Platelet Comments: PATIENT WAS FASTINGPERFORMED BY: LabCoSaint Clare's Hospital at SussexPdczda5456 [facility] [id number] Immature Grans (Abs) 0.0 {x10E3/uL} (Normal) Range: [...] 3.80-5.10 WBC 5.6 {x10E3/uL} (Normal) Range: 4.0-10.5 4-Pqw-614785:19 Comp. Metabolic Panel (14) Comments: PATIENT WAS FASTINGPERFORMED BY: LabCoSaint Clare's Hospital at SussexZpwtqf8750 [facility] [id number]; appt 01/11/11 ALT (SGPT) 18 [iU]/L (Normal) [...] Glucose, Serum 113 mg/dL (Abnormal) Range: 65-99 7-Vug-560634:19 Lipid Panel With LDL/HDL Comments: PATIENT WAS FASTINGPERFORMED BY: [employer] [facility] [id number] Ratio LDL/HDL Ratio 1.0 {ratio_units} Range: 0.0-3.2 [...] 0.800 {uIU/mL} Comments: PATIENT WAS FASTINGPERFORMED BY: [place]ItDublin [place] [id number] 2:19 (Normal) Range: 0.450-4.500 Vitamin D, 25-Hydroxy 44.0 ng/mL (Normal) Comments: PATIENT WAS FASTINGPERFORMED BY: [facility]6370 [facility] [id number] 2:19 Range: 32.0-100.0 Comments: Effective February 22, 2011 Vitamin D, 25-Hydroxy reference intervals will be changing to 30-100. .Recent studies consider the lower li sandra of 32.0 ng/mL to be athreshold for optimal health.Otf HAYES. J Nutr. 2004;135(2):317-22. :54 HgA1C , Office (89904) HgA1C , Office 6.6 % (Normal) Range: 4.6 - 7.1 :54 Blood Glucose , Office (81174) Blood Glucose , Office 134 (Normal) :40 Creatinine Clearance Comments: PERFORMED BY: [facility]6370 [facility] [id number] Information: 10/07@7AM 10/08@3AM Creatinine Clearance 56 mL/min [...] Protein Total, Qn, 24-Hr Comments: PERFORMED BY: [employer] Ntvksb1843 [facility] [id number] Urine Prot,24hr calculated 610.5 {mg/24_hr} (Abnormal) Range: 30.0-150.0 Protein,Total,Urine 40.7 mg/dL (Abnormal) Range: 0.0-15.0 :46 Vitamin D Hydroxy (27607) Comments: PATIENT WAS FASTINGPERFORMED BY: [employer] Vcfxns7876 [facility] [id number] Vitamin D, 25-Hydroxy 36.5 ng/mL (Normal) Range: 32.0-100.0 Comments: Recent studies consider the lower limit of 32.0 ng/mL to be athreshold for optimal health.Otf HAYES. J Nutr. 2004;135(2):317-22. :46 METABOLIC PANEL, COMPREHENSIVE Comments: PATIENT WAS FASTINGPERFORMED BY: [employer] Hrgblv9341 [facility] [id number] (48231) ALT (SGPT) 34 [iU]/L (Normal) Range: 0-40 [...] mg/dL (Abnormal) Range: 65-99 :46 LIPID PANEL (41313) Comments: PATIENT WAS FASTINGPERFORMED BY: [employer]70 [facility] [id number] LDL Cholesterol Calc 85 mg/dL (Normal) Range: [...] MANUAL DIFF Comments: PATIENT WAS FASTINGPERFORMED BY: [employer]70 [facility] [id number] Information: [id number]; appt 10/12/10 (99375) Immature Grans (Abs) 0.0 {x10E3/uL} (Normal) Range: [...] (Normal) Range: 4.0-10.5 :07 HgA1C , Office (54595) HgA1C , Office 6.6 % (Normal) Range: 4.6 - 7.1 :07 Blood Glucose , Office (79765) Blood Glucose , Office 114 (Normal) 61-Ydh-917868:00 Creatinine Clearance Comments: PERFORMED BY: LabAsp[facility]6370 [facility] [id number] Information: 12/31@8AM 01/01@4AM Creatinine Clearance 48 mL/min [...] Creatinine, Serum 1.20 mg/dL (Abnormal) Range: 0.57-1.00 86-Eaq-124039:00 Protein Total, Qn, 24-Hr Comments: PERFORMED BY: LabCoSaint Clare's Hospital at SussexPcpmht4885 [facility] [id number] Urine Prot,24hr calculated 1070.6 {mg/24_hr} (Abnormal) Range: 30.0-150.0 Protein,Total,Urine 79.3 mg/dL (Abnormal) Range: 0.0-15.0 77-Bbx-537499:48 BILAT SCRN DIGITAL & CAD Radiology Report See Note (Normal) Comments: Exam Number: [id number] MAMMOGRAPHY - BILATERAL SCREENING INDICATION:Routine annual screening [...] of attaching a ResultCode to this exam.ADDENDUM: [id number] HPBI/MDS Reported By: MISAEL HEBERT 06-Iil-510477:48 DEXA BONE DENSITY STUDY (HP) Radiology Report See Note (Normal) Comments: Exam Number: [id number] CLINICAL:This is a 69-year-old female patient with postmenopausal screening. EXAMINATION:DUAL ENERGY X-RAY ABSORPTIOMETRY / DEXA. TECHNIQUE:Bone Density Measurements (BMD) of lumb ar spine and bilateral hipswere obtained using a [employer] scanner.. COMPARISON:None. FINDINGS: Lumbar Spine (L1-L4): g/cm2 [...] Osteoporosis Foundation [email or web address]://www.nof.org Reported By: MISAEL HEBERT 12-Jxy-444428:29 HgA1C , Office (27804) HgA1C , Office 6.5 % (Normal) Range: 4.6 - 7.1 95-Jwg-588324:29 Blood Glucose , Office (35300) Blood Glucose , Office 109 (Normal) 78-Nlp-43147:05 CBC With Differential/Platelet Comments: PATIENT WAS FASTINGPERFORMED BY: LabCoSaint Clare's Hospital at SussexCfymgv5572 [facility] [id number] Immature Grans (Abs) 0.0 {x10E3/uL} (Normal) Range: [...] 3.80-5.10 WBC 3.9 {x10E3/uL} (Abnormal) Range: 4.0-10.5 92-Efp-57869:05 Comp. Metabolic Panel (14) Comments: PATIENT WAS FASTINGPERFORMED BY: [facility] Tnbkqj7489 [facility] [id number] ALT (SGPT) 20 [iU]/L (Normal) Range: 0-40 [...] Glucose, Serum 123 mg/dL (Abnormal) Range: 65-99 38-Rcl-90957:05 Lipid Panel With LDL/HDL Comments: PATIENT WAS FASTINGPERFORMED BY: LabCoSaint Clare's Hospital at SussexInqzkl5039 [facility] [id number] Ratio HDL Cholesterol 54 mg/dL (Normal) Comments: [...] ng/mL (Normal) Comments: PATIENT WAS FASTINGPERFORMED BY: EVE NexSteppe70 [facility] [id number] :05 Range: 32.0-100.0 Comments: Recent studies consider the lower limit of 32.0 ng/mL to be athreshold for optimal health.Otf HAYES. J Nutr. 2004;135(2):317-22. 00-Aqs-40539:41 SPLEEN (HP) Radiology Report See Note (Normal) Comments: Exam Number: [id number] ULTRASOUND OF THE SPLEEN A goal directed [...] Protein, 0.5 mg/L (Normal) Comments: PERFORMED BY: [employer]6[address] [facility] [id number] 10:54 Quant Range: 0.0-4.9 17-Jun-2009 Hemoglobin A1c 6.3 % (Abnormal) Comments: PERFORMED BY: [employer] [facility] [id number] 10:54 Range: 4.8-5.6 Comments: Increased risk for diabetes: 5.7 - 6.4Diabetes: >6.4Glycemic control for adults with diabetes: <7.0.Please note reference interval change 17-Jun-2009 Sedimentation 4 mm/h (Normal) Comments: PERFORMED BY: WishLink70 [facility] [id number] 10:54 Rate-Westergren Range: 0-30 17-Jun-2009 Vitamin B12 1372 pg/mL Comments: PERFORMED BY: [employer] [place] Egtawc9011 [facility] [id number] 10:54 (Abnormal) Range: 211-911 Comments: Effective July 14, 2009, Vitamin B12 will bechanging to the [place] ECLIA methodology. Thereference interval will be changing to:211 - 946 pg/mL 17-Jun-2009 Vitamin D, 25-Hydroxy 37.7 ng/mL Comments: PERFORMED BY: EVE Office Depotrp Hcnjpc9571 [facility] [id number] 10:54 (Normal) Range: 32.0-100.0 Comments: Recent studies consider the lower limit of 32.0 ng/mL to be athreshold for optimal health.Otf HAYES. J Nutr. 2004;135(2):317-22. 24-Wvl-385519:34 Vitamin D Hydroxy Comments: PATIENT NOT FASTINGPERFORMED BY: [employer]otaPost6370 [facility] [id number] Information: U05856,2ND ORDER NO DRAW F EE (51081) Vitamin D, 25-Hydroxy 48.5 ng/mL (Normal) Range: 30.0-100.0 Comments: Vitamin D deficiency has been defined by the [place] of[place]icine and an Endocrine Society practice guideline as alevel of serum 25-OH vitamin D less than 20 ng/mL (1,2).The Endocrine Society went on to further define vitamin Dinsufficiency as a level between 21 and 29 ng/mL (2).1. IOM ([place]). 2010. Dietary reference intakes for calcium and D. [place]: The National Academies Press.2. Mira MF, [place], Tommy SWAIN, et al. Evaluation, treatment, and prevention of vitamin D deficiency: an Endocrine Society clinical practice guideline. JCEM. 2010; 96(7):1911-30. :50 HgA1C , Office (73838) HgA1C , Office 6.7 % (Normal) Range: 4.6 - 7.1 :50 Blood Glucose , Office (10157) Blood Glucose , Office 117 (Normal) 09-Lct-699378:12 CBC With Differential/Platelet Comments: PERFORMED BY: Office DepotSaint Clare's Hospital at SussexOdufro4475 [facility] [id number] Information: 06/10@6AM3/10@330AM Hematology Comments: Note: (Normal) Comments: [...] 3.80-5.10 WBC 3.6 {x10E3/uL} (Abnormal) Range: 4.0-10.5 97-Skj-859155:12 Comp. Metabolic Panel (14) Comments: PERFORMED BY: [facility]6370 [facility] [id number] Alkaline Phosphatase, S 68 [iU]/L (Normal) Range: [...] Glucose, Serum 124 mg/dL (Abnormal) Range: 65-99 44-Tys-008887:12 Creatinine Clearance Comments: PERFORMED BY: [facility]6370 [facility] [id number] Creatinine Clearance 49 mL/min (Abnormal) Range: 88-128 Comments: The above range is based on 1.73 square meter average body surfacearea. Creatinine, Ur 24hr 800.0 {mg/24_hr} (Normal) Range: 800.0-1800.0 Creatinine, Urine 40.0 mg/dL (Normal) Range: 15.0-278.0 19-Eqj-497808:12 Lipid Panel With LDL/HDL Comments: PERFORMED BY: [employer] Aiysho1548 [facility] [id number] Ratio HDL Cholesterol 61 mg/dL (Normal) Comments: According to ATP-III Guidelines, HDL-C >59 mg/dL is considered anegative risk factor for CHD. LDL Cholesterol Calc 74 mg/dL (Normal) Range: 0-99 LDL/HDL Ratio 1.2 {ratio_units} (Normal) Range: 0.0-3.2 VLDL Cholesterol Cesar 17 mg/dL (Normal) Range: 5-40 Cholesterol, Total 152 mg/dL (Normal) Range: 100-199 Triglycerides 87 mg/dL (Normal) Range: 0-149 33-Qga-099853:12 Protein Total, Qn, 24-Hr Comments: PERFORMED BY: [employer]pe70 [facility] [id number] Urine Prot,24hr calculated 1172.0 {mg/24_hr} Range: 30.0-150.0 (Abnormal) Protein,Total,Urine 58.6 mg/dL (Abnormal) Range: 0.0-15.0 TSH 1.280 {uIU/mL} Comments: PERFORMED BY: [employer] Trqtwb8627 [facility] [id number] 1:12 (Normal) Range: 0.450-4.500 :58 HgA1C , Office (91067) HgA1C , Office 6.0 % (Normal) Range: 4.6 - 7.1 :58 Blood Glucose , Office (19400) Blood Glucose , Office 113 (Normal) 3-Nes-575327:03 CBC With Differential/Platelet Comments: PATIENT WAS FASTINGPERFORMED BY: Office DepotSaint Clare's Hospital at SussexEreajy4948 [facility] [id number] Baso (Absolute) 0.0 {x10E3/uL} (Normal) Range: 0.0-0.2 [...] 11.7-15.0 WBC 3.2 {x10E3/uL} (Abnormal) Range: 4.0-10.5 3-Szj-058342:03 Comp. Metabolic Panel (14) Comments: PATIENT WAS FASTINGPERFORMED BY: LabCoSaint Clare's Hospital at SussexPnnzog7569 [facility] [id number] A/G Ratio 2.0 (Normal) Range: 1.1-2.5 Albumin, [...] With LDL/HDL Comments: PATIENT WAS FASTINGPERFORMED BY: WishLink70 Cofio SoftwareColumbus Regional Healthcare System [id number] Ratio Cholesterol, Total 167 mg/dL (Normal) Range: [...] ng/mL (Normal) Comments: PATIENT WAS FASTINGPERFORMED BY: [employer]6370 [facility] [id number] :03 Range: 32.0-100.0 Comments: Recent studies consider the lower limit of 32.0 ng/mL to be athreshold for optimal health.Otf HAYES. J Nutr. 2005 May;135(2):317-22. 66-Vhg-045512:32 Urinalysis, Office (08716) UA - BILIRUBIN Negative (Normal) UA - BLOOD Hemolyzed Trace (Normal) UA - GLUCOSE Negative (Normal) UA - KETONES Negative mg/dL (Normal) UA - LEUKOCYTE ESTERASE Negative (Normal) UA - NITRITE Negative (Normal) UA - PH 6.5 (Normal) UA - PROTEIN 300 mg/dL (Normal) UA - SPECIFIC GRAVITY 1.020 (Normal) URINE UROBILINGN JATINDER TIMED 2 mg/dL (Normal) 7-Qty-899141:19 URINE SETH CULTURE-JATINDER COL Comments: PATIENT NOT FASTINGClinical Information: SRC:UR ADD [id number] PERFORMED BY: EVE [employer] [place] [id number] COUNT (80408) Result 1 ECV (Normal) Comments: Escherichia coli, [...] report (Normal) Culture,Comprehensiv e 09-Jan-20098:17 Urinalysis, Office (19542) UA - BILIRUBIN Negative (Normal) UA - BLOOD Hemolyzed Large (Normal) UA - GLUCOSE Negative (Normal) UA - KETONES Negative mg/dL (Normal) UA - LEUKOCYTE ESTERASE Moderate (Normal) UA - NITRITE Negative (Normal) UA - PH 7.0 (Normal) UA - PROTEIN 300 mg/dL (Normal) UA - SPECIFIC GRAVITY 1.020 (Normal) URINE UROBILINGN JATINDER TIMED 2 mg/dL (Normal) 7-Cvw-301873:05 Comp. Metabolic Panel (14) Comments: PATIENT WAS FASTINGPERFORMED BY: EVE CarZumerColumbus Regional Healthcare System [id number] A/G Ratio 1.7 (Normal) Range: 1.1-2.5 Albumin, [...] Panel (7) Comments: PATIENT WAS FASTINGPERFORMED BY: LabCoSaint Clare's Hospital at SussexPgmwbp0092 [facility] [id number] Bilirubin, Direct 0.12 mg/dL (Normal) Range: 0.00-0.40 :05 Lipid Panel With LDL/HDL Comments: PATIENT WAS FASTINGPERFORMED BY: LabAspirus [facility] Hospital6370 [facility] [id number] Ratio Cholesterol, Total 170 mg/dL (Normal) Range: [...] mg/dL (Normal) Comments: PATIENT WAS FASTINGPERFORMED BY: LabAspirus [facility] Hospital6370 [facility] [id number] :05 Range: 2.5-4.5 PTH, Intact 19 pg/mL (Normal) Comments: PATIENT WAS FASTINGPERFORMED BY: LabAsp[facility] Hospital6370 [facility] [id number] :05 Range: 15-65 Vitamin D, 25-Hydroxy 38.9 ng/mL (Normal) Comments: PATIENT WAS FASTINGPERFORMED BY: LabAsp[facility]6370 [facility] [id number] :05 Range: 32.0-100.0 Comments: Recent studies consider the lower limit of 32.0 ng/mL to be athreshold for optimal health.Otf HAYES. J Nutr. 2004;135(2):317-22. :40 HgA1C , Office (55383) HgA1C , Office 6.0 % (Normal) Range: 4.6 - 7.1 :40 Blood Glucose , Office (11515) Blood Glucose , Office 109 (Normal) :42 CBC With Differential/Platelet Comments: PATIENT WAS FASTINGPERFORMED BY: LabCoSaint Clare's Hospital at SussexEailrr1585 [facility] [id number] Baso (Absolute) 0.0 {x10E3/uL} (Normal) Range: 0.0-0.2 [...] 11.7-15.0 WBC 4.2 {x10E3/uL} (Normal) Range: 4.0-10.5 38-Qyt-992021:42 Comp. Metabolic Panel (14) Comments: PATIENT WAS FASTINGPERFORMED BY: LabAsp[facility] Hospital6370 [facility] [id number] A/G Ratio 1.6 (Normal) Range: 1.1-2.5 Albumin, [...] Sodium, Serum 140 mmol/L (Normal) Range: 135-145 4-Nbm-937296:09 FECAL OCCULT HGB ASSAY, QUAL, 1-3 SIMULTANEOUS DETERMINATIONS (92242) FECAL OCCULT HGB ASSAY, QUAL, 1-3 SIMULTANEOU neg (Normal) :42 Microscopic Examination Comments: PATIENT WAS FASTINGPERFORMED BY: WishLink70 [facility] [id number] Bacteria None seen (Normal) Cast Type Hyaline casts (Normal) Casts Present {/lpf} (Abnormal) Epithelial Cells (non renal) 0-10 {/hpf} (Normal) Range: 0 - 10 Mucus Threads Present (Normal) RBC 0-3 {/hpf} (Normal) Range: 0 - 3 WBC 0-5 {/hpf} (Normal) Range: 0 - 5 :42 URINALYSIS W/O MICRO (47655) Comments: PATIENT WAS FASTINGPERFORMED BY: [employer] [place] [id number] Appearance Clear (Normal) Bilirubin Negative (Normal) Glucose Negative (Normal) Ketones Negative (Normal) Microscopic Examination See below: (Normal) Nitrite, Urine Negative (Normal) Occult Blood Negative (Normal) pH 5.0 (Normal) Range: 5.0-7.5 Protein 1+ (Abnormal) Specific [place] 1.013 (Normal) Range: 1.005-1.030 Urine-Color Yellow (Normal) Urobilinogen,Semi-Qn 0.2 mg/dL (Normal) Range: 0.0-1.9 WBC Esterase 1+ (Abnormal) :42 MICROALBUMIN: CREATININE RATIO Comments: PATIENT WAS FASTINGPERFORMED BY: [address] [id number] (33428) AND (63059) Creatinine, Urine 76.1 mg/dL (Normal) Range: 15.0-278.0 Microalb/Creat Ratio 292.1 {ug/mg_creat} (Abnormal) Range: 0.0-30.0 Microalbumin, Urine 222.3 ug/mL (Abnormal) Range: 0.0-17.0 :42 CBC WITH MANUAL DIFF (95113) Comments: PATIENT WAS FASTINGClinical Information: ADD DRAW FEE [id number] ADD J 03816 PERFORMED BY: [facility]6370 [facility] [id number] Baso (Absolute) 0.0 {x10E3/uL} (Normal) Range: 0.0-0.2 [...] PANEL, COMPREHENSIVE Comments: PATIENT WAS FASTINGPERFORMED BY: LabAsp[facility]6370 [facility] [id number] (67838) A/G Ratio 1.8 (Normal) Range: 1.1-2.5 Albumin, [...] Sodium, Serum 141 mmol/L (Normal) Range: 135-145 0-Ips-338809:23 HgA1C , Office (48202) HgA1C , Office 6.0 % (Normal) Range: 4.6 - 7.1 0-Wri-586319:23 Blood Glucose , Office (11534) Blood Glucose , Office 103 (Normal) 28-Gkn-095808:38 CBC WITH MANUAL DIFF (17309) Comments: PATIENT WAS FASTINGClinical Information: ADD DRAW FEE [id number] ADD J 73990 PERFORMED BY: [facility] Jucgrs9111 [facility] [id number] Baso (Absolute) 0.0 {x10E3/uL} (Normal) Range: 0.0-0.2 [...] 11.7-15.0 WBC 4.0 {x10E3/uL} (Normal) Range: 4.0-10.5 78-Rea-608440:38 METABOLIC PANEL, COMPREHENSIVE Comments: PATIENT WAS FASTINGPERFORMED BY: LabCoSaint Clare's Hospital at SussexUvwjci6072 [facility] [id number] (32128) A/G Ratio 1.8 (Normal) Range: 1.1-2.5 Albumin, [...] Sodium, Serum 142 mmol/L (Normal) Range: 135-145 14-Fco-470663:38 HEPATIC FUNCTION PANEL Comments: PATIENT WAS FASTINGPERFORMED BY: [facility] Lgctql6600 [facility] [id number] (52177) Bilirubin, Direct 0.08 mg/dL (Normal) Range: 0.00-0.40 22-Zdz-074666:38 LIPID PANEL (48772) Comments: PATIENT WAS FASTINGPERFORMED BY: [employer] Vtikms6191 [facility] [id number] Cholesterol, Total 200 mg/dL (Abnormal) Range: 100-199 [...] Cholesterol Cesar 18 mg/dL (Normal) Range: 5-40 0-Ucz-965909:36 HgA1C , Office (28803) HgA1C , Office 6.1 % (Normal) Range: 4.6 - 7.1 :36 Blood Glucose , Office (15385) Blood Glucose , Office 98 (Normal) 12-Szv-252261:33 CBC With Differential/Platelet Comments: PATIENT WAS FASTINGClinical Information: SRC:UR PERFORMED BY: [facility] [id number] [facility] [id number] Baso (Absolute) 0.0 {x10E3/uL} (Normal) Range: 0.0-0.2 [...] 11.7-15.0 WBC 4.8 {x10E3/uL} (Normal) Range: 4.0-10.5 96-Hta-656344:33 Comp. Metabolic Panel (14) Comments: PATIENT WAS FASTINGPERFORMED BY: [facility]6370 [facility] [id number] A/G Ratio 1.6 (Normal) Range: 1.1-2.5 Albumin, [...] Serum 92 mg/dL (Normal) Range: 65-99 If -Lebanese 57 mL/min/1.73 Comments: Note: Persistent reduction for [...] Sodium, Serum 142 mmol/L (Normal) Range: 135-145 17-Psy-928266:33 Lipid Panel With LDL/HDL Comments: PATIENT WAS FASTINGPERFORMED BY: [email or web address] [id number] Ratio Cholesterol, Total 174 mg/dL (Normal) Range: 100-199 HDL Cholesterol 67 mg/dL (Normal) Comments: According to ATP-III Guidelines, HDL-C >59 mg/dL is considered anegative risk factor for CHD. LDL Cholesterol Calc 85 mg/dL (Normal) Range: 0-99 LDL/HDL Ratio 1.3 {ratio_units} (Normal) Range: 0.0-3.2 Triglycerides 110 mg/dL (Normal) Range: 0-149 VLDL Cholesterol Cesar 22 mg/dL (Normal) Range: 5-40 22-Ikz-408505:33 Urine Culture,Comprehensive Comments: PATIENT WAS FASTINGPERFORMED BY: [facility] [id number] Antimicrobial [facility] (Normal) Comments: S = Susceptible; I = [...] Enterococcus. (Normal) Urine Final report (Normal) Culture,Comprehensive 5-Ksr-452577:10 HgA1C , Office (31896) HgA1C , Office 5.9 % (Normal) Range: [...] mL (Normal) URINE PROTEIN 20.0 mg/dL (Abnormal) 83-Mjk-542972:17 Urine Culture,Comprehensive Comments: Clinical Information: SRC:UR PERFORMED BY: [employer] [id number] [facility] [id number] Result 1 CNSNSS (Normal) Comments: Coagulase negative Staphylococcus species, not Staphylococcussaprophyticus.600 Colonies/mLSusceptibility or resistance of staphylococci to oxacillin predictssusceptibility or resistance to (a) other be ae-zintsjvxg-fzqmdnavcpkksfwaj such as cloxacillin and dicloxacillin, (b) combinationsof a penicillin and a beta-lactamase inhibitor, and(c) anti- staphylococcal cephalosporins. Routine testing of otherp enicillins, beta-lactam/beta-lactamase inhibitor combinations,cephems, and carbapenems is not advised by the CLSI Standards(B908-H87, 2005). S = Susceptible; I = Intermediate; R = Resistant * P = Positive; N = Negative MICS are expressed in micrograms per mL Antibiotic RSLT#1 RSLT#2 RSLT#3 RSLT#4Ciprofloxacin RGentami kristian SLevofloxacin RNitrofurantoin SOxacillin SPenicillin RRifampin STrimethoprim/Sulfa SVancomycin S Urine Final report Culture,Comprehensi (Normal) ve 0-Uqg-063966:53 Metabolic Panel, Basic (77305) Comments: PATIENT NOT FASTINGClinical Information: ADD DRAW FEE [id number] ADD J 09990 PERFORMED BY: [facility] [id number] [facility] [id number] BUN 39 mg/dL (Abnormal) Range: 5-26 BUN/Creatinine Ratio 33 (Abnormal) Range: 8-27 Calcium, Serum 9.8 mg/dL (Normal) Range: 8.5-10.6 Carbon Dioxide, Total 22 mmol/L (Normal) Range: 20-32 Chloride, Serum 103 mmol/L (Normal) Range: 97-108 Creatinine, Serum 1.20 mg/dL (Abnormal) Range: 0.57-1.00 Glom Filt Rate, Est 45 mL/min/1.73 Range: 60-128 (Abnormal) Glucose, Serum 101 mg/dL (Abnormal) Range: 65-99 If -Lebanese 55 mL/min/1.73 Range: 60-128 (Abnormal) Comments: Note: Persistent reduction for 3 months or more in an eGFR<60 mL/min/1.73 m2 defines CKD. Patients with eGFR values>/=60 mL/min/1.73 m2 may also have CKD if evidence of persistentproteinuria is present. Additional information may be found [email or web address]. Potassium, Serum 5.1 mmol/L (Normal) Range: 3.5-5.2 Sodium, Serum 139 mmol/L (Normal) Range: 135-145 :09 HgA1C , Office (43270) HgA1C , Office 6.1 % (Normal) Range: 4.6 - 7.1 :09 Blood Glucose , Office (94384) Blood Glucose , Office 163 (Normal) :37 SPINE,LUMBAR (ROUTINE) Radiology Report See Note (Normal) Comments: Exam Number: [id number] MRI LUMBAR SPINE CLINICAL STATEMENTLow back pain [...] onboth sides. Reported By: MODESTA COPE M.D. 25-Wnv-878358:00 BILAT SCRN DIGITAL & CAD Radiology Report See Note (Normal) Comments: Exam Number: [id number] MAMMOGRAM, BILATERAL SCREENING DIGITAL AND CAD HISTORYRoutine screening. Full field digital images were obtained in mediolateral oblique andcraniocaudal projections. CAD images w ere reviewed. The current study is compared to [facility]. A small metal marker is placed [...] mammograms werealso examined with computer-aided detection software ([employer].). Reported By: DONNA OJEDA M.D. 06-Dsv-705581:59 DEXA BONE DENSITY STUDY (HP) Radiology Report See Note (Normal) Comments: Exam Number: [id number] BONE DENSITOMETRY HISTORYPost menopausal. TECHNIQUE Bone densitometry [...] Report See Note (Normal) Comments: Exam Number: [id number] FIVE VIEW LUMBAR SPINE AP, lateral, both [...] Ur Comments: PATIENT NOT FASTINGPERFORMED BY: EVE [facility] [id number] [facility] [id number] Creatinine, Urine 46.8 mg/dL (Normal) Microalb/Creat Ratio 712.8 {ug/mg_creat} (Abnormal) Range: 0.0-30.0 Microalbum.,U,Random 333.6 ug/mL (Abnormal) Range: 0.0-17.0 :13 Creatinine Clearance Comments: PATIENT NOT FASTINGClinical Information: HT-5'4'' WT-184 PERFORMED BY: [facility] [id number] [facility] [id number] Creatinine Clearance 40 mL/min (Abnormal) Range: 88-128 Comments: The above range is based on 1.73 square meter average body surfacearea. Creatinine, Serum 1.30 mg/dL (Normal) Range: 0.50-1.50 Creatinine, Ur 24hr 754.8 {mg/24_hr} Range: 800.0-1800.0 (Abnormal) Creatinine, Urine 44.4 mg/dL (Normal) Glom Filt Rate, Est 41 mL/min (Abnormal) Range: 60-128 If -Lebanese 50 mL/min (Abnormal) Range: 60-128 Comments: Note: Persistent reduction for 3 months or more in an eGFR<60 mL/min/1.73 m2 defines CKD. Patients with eGFR values>/=60 mL/min/1.73 m2 may also have CKD if evidence of persistentproteinuria is present. .Additional information may be found at www.[email or web address]. 05-Sep-20079:13 Protein Total, Qn, 24-Hr Comments: PATIENT NOT FASTINGPERFORMED BY: [facility]CoSaint [facility] SussexJxcrtm3116 [facility] [id number] Urine Protein,Total,Urine 49.0 mg/dL (Abnormal) Range: 0.0-15.0 Prt, 24hr calculated 833.0 {mg/24_hr} (Abnormal) Range: 30.0-150.0 71-Gsw-604848:00 CBCD,SMEAR DIFF CELLS COUNTED 100 (Normal) EOS [...] D BILI 0.06 mg/dL (Normal) Range: 0.00-0.30 47-Wuq-445932:00 LIPID CHOL 175 mg/dL (Normal) Comments: <200 [...] of skin Planned Observations Vitamin D Hydroxy (61264)Indication: Vitamin D deficiency On: Request URINALYSIS, W/ MICRO (71971)Indication: Chronic kidney disease, stage 3 On: Request LIPID PANEL (67813)Indication: Mixed hyperlipidemia On: Request CBC W/AUTO DIFF WBC (52833)Indication: Chronic kidney disease, stage 3 On: Request METABOLIC PANEL, COMPREHENSIVE (39992)Indication: Chronic kidney disease, stage 3 On: Request HGB A1C (85759)Indication: Diabetes mellitus type II, controlled On: 29-Oyl-887881:24 Request Parathyroid Hormone-related Peptide (PTH-rP) (63870)Indication: Vitamin D deficiency On: 3-Qji-685127:43 Request Comments: send results to Dr. Santana fax: [phone] VITAMIN D, 1, 25-DIHYDROXY (85181)Indication: Vitamin D deficiency On: 7-Djs-738546:42 Request Comments: send results to Dr. Santana fax: [phone] Clostridium difficile Toxin A+B, EIA (77940)Indication: Chronic diarrhea On: 6-Ese-186587:36 Request Vitamin D Hydroxy (01611)Indication: Osteopenia On: 5-Uam-382909:20 Request CBC W/AUTO DIFF WBC (27476)Indication: Hypertension, benign On: 8-Iqt-791922:16 Request CALCIFEDIOL (77255)Indication: Chronic kidney disease, stage 3 On: :04 Request Renal function Panel (68820)Indication: Chronic kidney disease, stage 3 On: :04 Request Magnesium (97092)Indication: Chronic kidney disease, stage 3 On: 03-Aug-20169:04 Request MICROALBUMIN: CREATININE RATIO (98022) AND (99735)Indication: Chronic kidney disease, stage 3 On: :04 Request Parathyroid Hormone-related Peptide (PTH-rP) (18259)Indication: Chronic kidney disease, stage 3 On: 03-Aug-20169:04 Request T4, FREE (THYROXINE) (54035)Indication: Cold feeling On: 03-Aug-20168:31 Request TSH (56275)Indication: Cold feeling On: 03-Aug-20168:31 Request PARATHORMONE (58105)Indication: Chronic kidney disease, stage 3 On: 04-Wjf-30973:18 Request Comments: copy to Dr. Santana [phone] CALCIFIDIOL (90563) VIT D 25Indication: Chronic kidney disease, stage 3 On: 64-Fap-98117:16 Request Comments: copy to Dr. Santana [phone] MAGNESIUM (77713)Indication: Chronic kidney disease, stage 3 On: 44-Lyg-32831:15 Request Comments: copy to Dr. Santana [phone] PROTEIN/CREAT RATIO, URINE (21173)Indication: Chronic kidney disease, stage 3 On: :15 Request Comments: copy to Dr. Santana [phone] LIPID PANEL (52244)Indication: Mixed hyperlipidemia On: :21 Request CBC with auto diff (94916)Indication: Diabetes mellitus type II, controlled On: 37-Ewm-293096:20 Request METABOLIC PANEL, COMPREHENSIVE (64765)Indication: Diabetes mellitus type II, controlled On: 31-Awj-984664:20 Request HGB A1C (75532)Indication: Diabetes mellitus type II, controlled On: 40-Yej-929419:10 Request Vitamin D Hydroxy (10581)Indication: Osteopenia On: :08 Request TSH (THYROID STIMULATING HORMONE) (94043)Indication: Depression On: 00-Bks-784767:06 Request LIPID PANEL (05954)Indication: Other and unspecified hyperlipidemia On: 33-Skw-553013:06 Request CBC with auto diff (76982)Indication: Diabetes mellitus type II, controlled On: 88-Uwl-078769:06 Request METABOLIC PANEL, COMPREHENSIVE (22449)Indication: Diabetes mellitus type II, controlled On: 78-Rjr-468091:06 Request CREATININE CLEARANCE (59974)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 On: 0-Hig-023550:38 Request Total Protein,24 Hour Urine (11452)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 On: 4-Taf-021889:38 Request CBC W/AUTO DIFF WBC (51126)Indication: Diabetes mellitus type II, controlled On: 63-Ebc-821440:11 Request HgA1C , Office (84842)Indication: Diabetes mellitus type II, controlled On: 29-Dfh-170373:23 Request CULTURE, SPUTUM (38286)Indication: Cough On: 62-Zwz-491250:47 Request HEPATIC FUNCTION PANEL (20531)Indication: Elevated LFTs On: 30-Tqa-66497:24 Request CREATININE CLEARANCE (73557)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 On: :33 Request 24 hour urine for Protein (84615)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 On: :33 Request CBC WITH MANUAL DIFF (71992)Indication: Diabetes mellitus type II, controlled On: 46-Xku-216857:29 Request METABOLIC PANEL, COMPREHENSIVE (43831)Indication: Diabetes mellitus type II, controlled On: :29 Request LIPID PANEL (41729)Indication: Mixed hyperlipidemia On: :29 Request CREATININE CLEARANCE (53693)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 On: 7-Ruz-695384:45 Request 24 hour urine for Protein (29925)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 On: 5-Ian-256552:45 Request CREATININE CLEARANCE (29601)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 On: 00-Thw-680785:57 Request 24 hour urine for Protein (38848)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 On: 10-Juf-182738:57 Request METABOLIC PANEL, COMPREHENSIVE (71331)Indication: Hypertension, benign On: :32 Request LIPID PANEL (69483)Indication: Mixed hyperlipidemia On: :32 Request C-REACTIVE PROTEIN (01098)Indication: Fatigue On: :24 Request SED RATE ERYTHROCYTE (88650)Indication: Headache On: :24 Request VITAMIN B-12 (CYANOCOBALAMIN) (71118)Indication: Fatigue On: :24 Request LIPID PANEL (15686)Indication: Mixed hyperlipidemia On: :41 Request CBC WITH MANUAL DIFF (34501)Indication: Hypertension, benign On: 3-Efq-324999:41 Request METABOLIC PANEL, COMPREHENSIVE (63876)Indication: Hypertension, benign On: :41 Request CREATININE CLEARANCE (02608)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 On: 7-Fng-841436:34 Request 24 hour urine for Protein (39248)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 On: 9-Vdf-865872:34 Request LIPID PANEL (45715)Indication: Mixed hyperlipidemia On: :22 Request HEPATIC FUNCTION PANEL (83683)Indication: Mixed hyperlipidemia On: :22 Request Vitamin D Hydroxy (77455)Indication: Hypercalcemia On: 7-Qan-193689:22 Request PHOSPHORUS (04693)Indication: Hypercalcemia On: 7-Ozg-758267:22 Request PARATHORMONE (05759)Indication: Hypercalcemia On: 6-Fzo-016316:22 Request METABOLIC PANEL, COMPREHENSIVE (53688)Indication: Hypercalcemia On: 0-Tgb-812699:22 Request CBC WITH MANUAL DIFF (72120)Indication: fsgs On: 1-Guz-471663:58 Request LIPID PANEL (76906)Indication: Mixed hyperlipidemia On: :58 Request METABOLIC PANEL, COMPREHENSIVE (31095)Indication: Hypertension, benign On: :58 Request Blood Glucose , Office (74663)Indication: Diabetes mellitus type II, controlled On: 7-Fvm-228582:10 Request TSH (75544)Indication: Diabetes mellitus type II, controlled On: 45-Dsf-394493:51 Request METABOLIC PANEL, COMPREHENSIVE (45466)Indication: Diabetes mellitus type II, controlled On: 75-Liq-370486:51 Request CBC WITH MANUAL DIFF (70852)Indication: Diabetes mellitus type II, controlled On: 33-Cer-487266:51 Request MICROALBUMIN: CREATININE RATIO (16167) AND (29473)Indication: Diabetes mellitus type II, controlled On: 54-Mdf-752303:51 Request HEPATIC FUNCTION PANEL (91840)Indication: Other and unspecified hyperlipidemia On: 95-Lcj-339283:51 Request LIPID PANEL (75394)Indication: Other and unspecified hyperlipidemia On: 56-Jok-147533:51 Request HgA1C , Office (91312)Indication: Diabetes mellitus type II, controlled On: 87-Ecl-225169:37 Request Blood Glucose , Office (36303)Indication: Diabetes mellitus type II, controlled On: 81-Zmd-223744:37 Request Planned Encounters Medical; [facility] 3 Month FU - On: 22-Mar-2018 11:00 [facility] Fast DO, Chaparrita A Fast DO, Chaparrita A Planned Procedures DRAIN/INJECT MAJOR JOINT OR BURSA On: 24-Jan-2018 Intent ()By: Francisco MANN, Keri Alonzo Comments: Lot#[id number]: 9-07-13Eelxt:intra artciular Site given:left knee Given By: Dr. Singh ABN signed Euflexxa Echo CompleteBy: Fast DO, Chaparrita A On: 16-Dec-2017 Intent Fast DO, Chaparrita A Flu Vaccine (Quadrivalent) On: 16-Dec-2017 Intent 54397Jb: Fast DO, Chaparrita A Fast Comments: Lot: [id number]: 10/01/18Site: L dltd, IMDose prefilled syringegiven by: Jamie reviewed and ABN signed DO, Chaparrita A Kenalog Injection, 10 mgm On: 03-Oct-2017 Intent (J3301)By: Keri Singh MD Comments: lot: [id number]: 11/20site/route: L knee Cartoid DopplerBy: Fast DO, Chaparrita On: 12-Sep-2017 Intent A Fast DO, Chaparrita A Comments: november DIGITAL TOMOSYNTHESIS On: 12-Sep-2017 Intent OF BREAST (58438)By: Ambrocio WOLFF, Comments: due november 02 Chaparrita A Fast DO, Chaparrita A Kenalog Injection, 10 mgm On: 06-Jun-2017 Intent (J3301)By: Keri Singh MD Comments: bupivacacine 0.5% [id number] exp 09-20 kenalog 40 mg injected in. [id number] 07-21 MRI OF BRAIN WITH AND WITHOUT On: 06-Jun-2017 Intent CONTRAST (59602)By: Fast DO, Chaparrita A Fast DO, Chaparrita A ELECTROCARDIOGRAM, COMPLETE (ECG) On: 06-Jun-2017 Intent (74896)By: Fast DO, Chaparrita A Fast Comments: ekg showed normal sinus rhythym, normal axis, no acute st/t wave changes DO, Chaparrita A INFUSION, NORMAL SALINE SOLUTION On: 10-May-2017 Intent , 1000 CC (Special Coverage Comments: 2 liters total Instructions Apply. See MCM: 2048) (J7030)By: Fast DO, Chaparrita A Fast DO, Chaparrita A INFUSION, NORMAL SALINE SOLUTION On: 10-May-2017 Intent , 1000 CC (Special Coverage Comments: lot:[id number]:IV left anticub dose:1000ml given by:eliazar HUMPHREY signedER, EGG SMELLER Instructions Apply. See MCM: 2048) (J7030)By: Fast DO, Chaparrita A Fast DO, Chaparrita A Radiology - Chest- PA and LatBy: On: 05-May-2017 Intent Keri Singh MD Aerosol Treatment (95364)By: On: 05-May-2017 Intent Keri Singh MD Radiology - ChestBy: Francisco MANN, On: 05-May-2017 Intent Keri Alonzo Comments: call wet read DRAIN/INJECT MAJOR JOINT OR BURSA On: 28-Feb-2017 Intent ()By: Keri Singh MD Comments: 1 cc Kenelog #[id number] cc Marcaine #[id number] Kenalog Injection, 10 mgm On: 28-Feb-2017 Intent (J3301)By: Keri Singh MD ELECTROCARDIOGRAM, COMPLETE (ECG) On: 10-Jan-2017 Intent (23884)By: Ambrocio WOLFF Chaparrita A Ambrocio Comments: ekg showed normal sinus rhythym, normal axis, no acute st/t wave changes DO, Chaparrita A Flu Vaccine (Quadrivalent) On: 27-Dec-2016 Intent 12680Ez: SHONDA Andrade DRAIN/INJECT MAJOR JOINT OR BURSA On: 20-Aug-2016 Intent ()By: Keri Singh MD DRAIN/INJECT MAJOR JOINT OR BURSA On: 13-Aug-2016 Intent ()By: SHONDA Andrade Comments: lot: [id number]:intra articular dose:2ml given by:Dr. Francisco HUMPHREY signedER, EGG SMELLER injection #3 DOPPLER ULTRASOUND OF RIGHT On: 10-Aug-2016 Intent CAROTID ARTERY (61889)By: Ambrocio Comments: end of october DO, Chaparrita A Fast DO, Chaparrita A DEXA SCAN AXIAL SKELETON On: 10-Aug-2016 Intent (91181)By: Ambrocio DO, Chaparrita A Ambrocio Comments: end of october DO, Chaparrita A SCREENING DIGITAL TOMOSYNTHESIS On: 10-Aug-2016 Intent OF BREAST (48540)By: Ambrocio WOLFF, Comments: end of october Chaparrita A Fast DO, Chaparrita A DRAIN/INJECT MAJOR JOINT OR BURSA On: 06-Aug-2016 Intent ()By: Keri Singh MD DRAIN/INJECT INTERMED JOINT/BURSA On: 06-Aug-2016 Intent ()By: SHONDA Andrade Comments: lot:[id number]:left knee dose:2mlgiven by:Dr. Bonezzi ABN signedER, EGG SMELLER injection number 2 Venous Doppler - LeftBy: Fast DO, On: 03-Aug-2016 Intent Chaparrita A Fast DO, Chaparrita A Comments: This is set up for August 05 at 11am- spoke with Rina in cv. DRAIN/INJECT INTERMED JOINT/BURSA On: 30-Jul-2016 Intent ()By: Keri Singh MD Comments: lot:[id number]:intra articular left knee dose: 2ml given by: Dr. Singh ABN signedER, EGG SMELLER injection #1 Radiology - Knee - LeftBy: Fast On: 26-May-2016 Intent DO, Chaparrita A Fast DO, Chaparrita A Flu Vaccine (Quadrivalent) On: 27-Jan-2016 Intent 47276Aq: Fast DO, Chaparrita A Fast Comments: Lot #:[id number] date:10/01/16mount given:0.5mlRoute: IMSite given: left deltoidGiven by: CARMELINA Hook DO, Chaparrita A ADMINISTRATION OF INFLUENZA VIRUS On: 27-Jan-2016 Intent VACCINE (G0008)By: Fast DO, Chaparrita A Fast DO, Chaparrita A DOPPLER ULTRASOUND OF RIGHT On: 22-Oct-2015 Intent CAROTID ARTERY (32037)By: Fast DO, Chaparrita A Fast DO, Chaparrita A MAMMOGRAM, SCREENING, BOTH BREAST On: 22-Oct-2015 Intent (43634)By: Fast DO, Chaparrita A Fast DO, Chaprarita A Ultrasound - RenalBy: Fast DO, On: 14-Jul-2015 Intent Chaparrita A Fast DO, Chaparrita A Radiology - Knee - Left - Weight On: 11-Mar-2015 Intent BearingBy: Fast DO, Chaparrita A Fast DO, Chaparrita A Radiology - Knee - Right - Weight On: 11-Mar-2015 Intent BearingBy: Fast DO, Chaparrita A Fast DO, Chaparrita A Flu Vaccine (Quadrivalent) On: 11-Feb-2015 Intent 34670Xa: Fast DO, Chaparrita A Fast DO, Chaparrita A EKG (38877)By: Fast DO, Chaparrita A On: 05-Nov-2014 Intent Fast DO, Chaparrita A Comments: ekg showed normal sinus rhythym, normal axis, no acute st/t wave changes left axis DRAIN/INJECT SMALL JOINT OR BURSA On: 07-Oct-2014 Intent ()By: Keri Singh MD MAMMOGRAM, SCREENING, BOTH BREAST On: 02-Aug-2014 Intent (23638)By: Chaparrita Albrecht DO A Ambrocio Comments: meera DO, Chaparrita A Cartoid DopplerBy: Fast DO, Chaparrita On: 02-Aug-2014 Intent A Fast DO, Chaparrita A DEXA SCAN AXIAL SKELETON On: 09-Apr-2014 Intent (95941)By: Ambrocio WOLFF, Chaparrita A Fast DO, Chaparrita A Prevnar 13 (92705)By: Ambrocio WOLFF, On: 30-Jan-2014 Intent Chaparrita A Fast DO, Chaparrita A Comments: Lot:[id number]:05/20Dose:0.5Route:imSite:l armGiven By:Jarred signed FLU VAC, SPLIT, >3 YEARS, On: 16-Jan-2014 Intent INTRAMUSC (69569)By: Ambrocio WOLFF, Comments: Lot #:[id number] date:12/2015Amount given:0.5mlRoute: IMSite given: left deltoidGiven by: CARMELINA Hook DO, Chaparrita A ADMINISTRATION OF INFLUENZA VIRUS On: 16-Jan-2014 Intent VACCINE (G0008)By: Ambrocio WOLFF Chaparrita A Fast DO, Chaparrita A EKG (02091)By: Ambrocio WOLFF, Chaparrita A On: 17-Oct-2013 Intent Fast DO, Chaparrita A Comments: ekg showed normal sinus rhythym, left axis, no acute st/t wave changes Radiology - Chest- PA and LatBy: On: 17-Sep-2013 Intent Fast DO, Chaparrita A Fast DO, Chaparrita A Aerosol Treatment (28658)By: Ambrocio On: 17-Sep-2013 Intent DO, Chaparrita A Fast DO, Chaparrita A MRI - BrainBy: Ambrocio DO, Chaparrita A On: 22-Jul-2013 Intent Fast DO, Chaparrita A Cartoid DopplerBy: Fast DO, Chaparrita On: 20-Jul-2013 Intent A Fast DO, Chaparrita A MAMMOGRAM, SCREENING, BOTH On: 20-Jul-2013 Intent BREASTS (42038)By: Ambrocio WOLFF Chaparrita A Fast DO, Chaparrita A Eprescribed prescriptions On: 20-Jul-2013 Intent (Leighann8553)By: Ambrocio WOLFF Chaparrita A Fast DO, Chaparrita A Eprescribed prescriptions On: 02-Feb-2013 Intent (G8553)By: Марина Concepcion FLU VAC, SPLIT, >3 YEARS, On: 03-Jan-2013 Intent INTRAMUSC (86076)By: Jamey, Comments: Lot #:[id number] date:mount given:0.5mlRoute: IMSite given: L dltdVIS and ABN signedGiven by: CARMELINA Hook ADMINISTRATION OF INFLUENZA VIRUS On: 03-Jan-2013 Intent VACCINE (G0008)By: Марина Concepcion CT - Abdomen & Pelvis (IV On: 17-Oct-2012 Intent Contrast Needed)By: Ambrocio WOLFF, Comments: patient will be calling to set up Chaparrita A Fast DO, Chaparrita A Eprescribed prescriptions On: 10-Oct-2012 Intent (G8553)By: Марина Concepcion Ear Irrigation (51926)By: [place], On: 13-Jun-2012 Intent Ivy Comments: Ear Irrigation performed on: right earAmount/color removed cerumen: light brown, small amount removedOUtcome:Pt toleratedUsed wax curettes Wax Currettes (25638)By: [place], On: 13-Jun-2012 Intent Ivy PNEUM VAC ADLT/IMUMNOSPR, On: 13-Jun-2012 Intent SBC/INTRM (55806)By: Ambrocio WOLFF, Comments: Lot:[id number]:09/09/13Dose:0.5mLRoute:IMSite:L armGiven By:BHUMI signed Chaparrita A Fast DO, Chaparrita A EKG (65393)By: Ambrocio DO, Chaparrita A On: 13-Jun-2012 Intent Fast DO, Chaparrita A Comments: ekg showed normal sinus rhythym, normal axis, no acute st/t wave changes MRI - BrainBy: Fast DO, Chaparrita A On: 13-Jun-2012 Intent Fast DO, Chaparrita A Comments: yonatan ADMINISTRATION OF PNEUMOCOCCAL On: 13-Jun-2012 Intent VACCINE (G0009)By: Case Albrecht DOa A Fast DO, Chaparrita A Eprescribed prescriptions On: 13-Jun-2012 Intent (G8553)By: Мраина Concepcion MAMMOGRAM, SCREENING, BOTH On: 28-Dec-2011 Intent BREASTS (35369)By: Fast DO, Chaparrita A Fast DO, Chaparrita A DXA, BONE DENSITY, AXIAL SKELETON On: 28-Dec-2011 Intent (38739)By: Fast DO, Chaparrita A Fast DO, Chaparrita A MRI - BrainBy: Fast DO, Chaparrita A On: 28-Dec-2011 Intent Fast DO, Chaparrita A Comments: end of jan Cartoid DopplerBy: Fast DO, Chaparrita On: 28-Dec-2011 Intent A Fast DO, Chaparrita A Comments: jan Ultrasound - PelvisBy: Fast DO, On: 28-Dec-2011 Intent Chaparrita A Fast DO, Chaparrita A FLU VAC, SPLIT, >3 YEARS, On: 28-Dec-2011 Intent INTRAMUSC (83712)By: Jamey, Comments: Lot #:[id number] date:mount given:0.5mlRoute: IMSite given: left deltoidGiven by: CARMELINA Hook ADMINISTRATION OF INFLUENZA VIRUS On: 28-Dec-2011 Intent VACCINE (G0008)By: Марина Concepcion Aerosol Treatment (81084)By: On: 30-Nov-2011 Intent Johanna Chang CNP CT - Abdomen & PelvisBy: Ambrocio DO, On: 21-Sep-2011 Intent Chaparrita A Fast DO, Chaparrita A Comments: with special cuts through the kidney- october EKG (70947)By: Марина Concepcion On: 15-Jun-2011 Intent Comments: ekg showed normal sinus rhythym, normal axis, no acute st/t wave changes MRI - BrainBy: Ambrocio DO, Chaparrita A On: 15-Jun-2011 Intent Fast DO, Chaparrita A Comments: july MRI - Other (IV Contrast On: 17-Mar-2011 Intent Needed)By: Ashley Ordaz Comments: Kidney MRI - Brain (IV Contrast On: 18-Feb-2011 Intent Needed)By: Ambrocio WOLFF Chaparrita A Ambrocio Comments: 6 week MRI Brain follow up per Chaparrita Cardenas DO MRI - Shoulder(s) - LeftBy: On: 18-Feb-2011 Intent Bonezzi MD, Keri M Radiology - Shoulder - LeftBy: On: 17-Feb-2011 Intent Fast DO, Chaparrita A Fast DO, Chaparrita A Comments: call wet read to Dr. Singh CT - Chest (IV Contrast On: 26-Jan-2011 Intent Needed)By: Марина Concepcion CT - Abdomen & Pelvis (IV On: 26-Jan-2011 Intent Contrast Needed)By: Марина Concepcion MRI - Brain (IV Contrast On: 19-Jan-2011 Intent Needed)By: Ambrocio WOLFF Chaparrita A Ambrocio Comments: with and without contrast DO, Chaparrita A CT - Brain/Head (IV Contrast On: 19-Jan-2011 Intent Needed)By: Fast , Chaparrita A Fast Comments: Call results to Dr. Albrecht @ [phone] as soon as resulted please. DO, Chaparrita A Eprescribed prescriptions On: 11-Jan-2011 Intent ([id number])By: Fast DO, Chaparrita A Fast DO, Chaparrita A MAMMOGRAM, SCREENING, BOTH On: 11-Jan-2011 Intent BREASTS ([id number])By: Fast DO, Chaparrita A Fast DO, Chaparrita A CT - Sinuses CompleteBy: Fast DO, On: 11-Jan-2011 Intent Chaparrita A Fast DO, Chaparrita A Cartoid DopplerBy: Fast DO, Chaparrita On: 11-Jan-2011 Intent A Fast DO, Chaparrita A ADMINISTRATION OF INFLUENZA VIRUS On: 11-Jan-2011 Intent VACCINE ([id number])By: Марина Concepcion FLU VAC, SPLIT, >3 YEARS, On: 11-Jan-2011 Intent INTRAMUSC ([id number])By: Марина Concepcion Eprescribed prescriptions On: 12-Oct-2010 Intent ([id number])By: Fast DO, Chaparrita A Fast DO, Chaparrita A Renal DopplerBy: Fast DO, Chaparrita A On: 12-Oct-2010 Intent Fast DO, Chaparrita A Cartoid DopplerBy: Fast DO, Chaparrita On: 12-Oct-2010 Intent A Fast DO, Chaparrita A Comments: sept TDAP VACCINE >7 IM ([id number])By: On: 13-May-2010 Intent HlusHelena cornejo LPN Comments: Lot #[id number]-left deltoidgiven by:[facility] EKG ([id number])By: Марина Concepcion On: 13-May-2010 Intent Comments: ekg showed normal sinus rhythym, normal axis, no acute st/t wave changes Aerosol Treatment ([id number])By: On: 22-Dec-2009 Intent Janaeolivia STORE DIRECTOR, Johanna Stockton Cartoid DopplerBy: Fast DO, Chaparrita On: 01-Dec-2009 Intent A Fast DO, Chaparrita A MAMMOGRAM, SCREENING, BOTH On: 01-Dec-2009 Intent BREASTS ([id number])By: Fast DO, Chaparrita A Fast DO, Chaparrita A DXA, BONE DENSITY, AXIAL SKELETON On: 01-Dec-2009 Intent ([id number])By: Fast DO, Chaparrita A Fast DO, Chaparrita A Ultrasound - SpleenBy: Fast DO, On: 17-Jun-2009 Intent Chaparrita A Fast DO, Chaparrita A EKG ([id number])By: Марина Concepcion On: 10-Mar-2009 Intent Comments: ekg showed normal sinus rhythym, normal axis, no acute st/t wave changes FLU VAC, SPLIT, >3 YEARS, On: 09-Jan-2009 Intent INTRAMUSC ([id number])By: Stacy Jorge Comments: Lot #[id number]-left deltoidDose0.5mlgiven by Marycarmen Jorge LPN ADMINISTRATION OF INFLUENZA VIRUS On: 09-Jan-2009 Intent VACCINE ([id number])By: Stacy Jorge MAMMOGRAM, SCREENING, BOTH On: 04-Dec-2008 Intent BREASTS ([id number])By: Fast DO, Chaparrita A Fast DO, Chaparrita A MAMMOGRAM, SCREENING, BOTH On: 03-Sep-2008 Intent BREASTS ([id number])By: Fast DO, Chaparrita A Fast DO, Chaparrita A FLU VAC, SPLIT, >3 YEARS, On: 16-Jan-2008 Intent INTRAMUSC ([id number])By: Gilmer CESAR, Comments: Lot #: [id number] date: 09/10Amount given: 0.5 mlRoute: IMSite given: Left deltoidGiven by: Olivia Bell LPN Janet ADMINISTRATION OF INFLUENZA VIRUS On: 16-Jan-2008 Intent VACCINE (G0008)By: Janet Scherer RN EKG ([id number])By: Fast DO, Chaparrita A On: 29-Aug-2007 Intent Fast DO, Chaparrita A Comments: done km ADMINISTRATION OF PNEUMOCOCCAL On: 29-Aug-2007 Intent VACCINE ([id number])By: Ambrocio WOLFF, Chaparrita A Fast DO, Chaparrita A PNEUM VAC ADLT/IMUMNOSPR, On: 29-Aug-2007 Intent SBC/INTRM ([id number])By: Ambrocio WOLFF, Comments: 0.5cc given im lt arm [id number] 02-13-08 Chaparrita A Fast DO, Chaparrita A DXA, BONE DENSITY, AXIAL SKELETON On: 29-Aug-2007 Intent ([id number])By: Fast DO, Chaparrita A Fast DO, Chaparrita A MAMMOGRAM, SCREENING, BOTH On: 29-Aug-2007 Intent BREASTS ([id number])By: Ambrocio DO, Chaparrita A Fast DO, Chaparrita A Planned Medications INFUSION, NORMAL SALINE SOLUTION , 1000 CC Ordered: 10-May-2017 Pending Fast DO, Chaparrita A Fast DO, Chaparrita A INFUSION, NORMAL SALINE SOLUTION , 1000 CC Ordered: 10-May-2017 Pending Ambrocio DO, Chaparrita A Fast DO, Chaparrita [...] Indication: Hypertension, benign Encounters Office Visit On: 24-Jan-2018 11:00 Encounter Diagnosis: [...] new people and be involved in the [employer] 0 bps are good and sugar looking [...] medical issues: she has been working with [employer] and trying to work on that- she got rid of respiratory infection but was sick for weeks and was on pred so her sugar up and chol up a bit- trying to add protein shakes drink more water- she is starting back at [facility]- diarrhea resolved- we did talk about [...] that she had episode where went to [facility] and she couldnt remember where she was- and happened one other time where she didnt recognize the roads- sister had alzheimer s- weight down because was sick- but coming back up- she hasnt done counseling with hospice has been thru before- she lonely- not necessarily unhappy- she doing self help she is singing with [employer]- -rodriguez gars are all in low 100s-130- going to [employer] for a month next monthEncounter Diagnosis: Nonsmoker, [...] Eddie and bp is good she joined [employer] sugar up bit doi ng ice cream-the bone density reviewed little thinner she not exercising routienly until just recent at [employer] and sees kidney doc next week and [...] maribel cordelia in hospice - going to group home [...] - has etoh /drug addiction- sister in [facility] e with alzheimers- she not depressed but [...] visual acuity (yearly). Note for Physical exam: [facility] Wellness Physical- Talk about trying Myrbetriq., [ADDITIONAL REASON] Follow up, Laboratory Test Results - Date: [facility] , [ADDITIONAL REASON] Itching - Symptoms [...] Meningioma (Renamed from ABNRM RESULT, FUNCTION STUDY, BRAIN/OBSTETRICIAN NEC (794.09)) [facility] Office Visit [...] Meningioma (Renamed from ABNRM RESULT, FUNCTION STUDY, BRAIN/OBSTETRICIAN NEC (794.09)), Diabetes, Type II, controlled (250.00), [...] Meningioma (Renamed from ABNRM RESULT, FUNCTION STUDY, BRAIN/OBSTETRICIAN NEC (794.09)), Colon Polyp [facility] [...] Meningioma (Renamed from ABNRM RESULT, FUNCTION STUDY, BRAIN/OBSTETRICIAN NEC (794.09)), OCCLUSION AND STENOSIS OF CAROTID [...] Meningioma (Renamed from ABNRM RESULT, FUNCTION STUDY, BRAIN/OBSTETRICIAN NEC (794.09)), Chronic glomerulonephritis with lesion of [...] Meningioma (Renamed from ABNRM RESULT, FUNCTION STUDY, BRAIN/OBSTETRICIAN NEC (794.09)), Other and unspecified hyperlipidemia (272.4), [...] Meningioma (Renamed from ABNRM RESULT, FUNCTION STUDY, BRAIN/OBSTETRICIAN NEC (794.09)) [facility] Office Visit [...] Meningioma (Renamed from ABNRM RESULT, FUNCTION STUDY, BRAIN/OBSTETRICIAN NEC (794.09)), Gerd (530.81), Hyperlipidemia, Unspecified (272.4), [...] Meningioma (Renamed from ABNRM RESULT, FUNCTION STUDY, BRAIN/OBSTETRICIAN NEC (794.09)), Hypertension,benign(401.1), OCCLUSION AND STENOSIS OF [...] Meningioma (Renamed from ABNRM RESULT, FUNCTION STUDY, BRAIN/OBSTETRICIAN NEC (794.09)), Diabetes, Type II, controlled (250.00), [...] Meningioma (Renamed from ABNRM RESULT, FUNCTION STUDY, BRAIN/OBSTETRICIAN NEC (794.09)), Hypertension,benign(401.1), Osteopenia (733.90), Depression (311.), [...] weight down 23 pounds- and trying joined [employer]- she feels well - she increased celexa [...] Meningioma (Renamed from ABNRM RESULT, FUNCTION STUDY, BRAIN/OBSTETRICIAN NEC (794.09)), Chronic glomerulonephritis with lesion of [...] Meningioma (Renamed from ABNRM RESULT, FUNCTION STUDY, BRAIN/OBSTETRICIAN NEC (794.09)) End: 26-Jan-2011 16:53 [facility] Office Visit On: 19-Jan-2011 14:30 Encounter Diagnosis: brain tumor End: 21-Sep-2011 8:09 [facility] Phone Encounter On: 19-Jan-2011 13:41 Encounter Diagnosis: ABNRM RESULT, FUNCTION STUDY, BRAIN/OBSTETRICIAN NEC (794.09) End: 19-Jan-2011 13:44 [facility] [...] Follow up, Laboratory Test Results - Date: (8/25/09). Encounter Diagnosis: Diabetes, Type II, controlled (250.00), [...] (V04.81), Degenerative Disc Disease - Lumbar (722.52), [facility] Office Visit On: 06-Dec-2007 [...] Disease - Lumbar (722.52), Osteopenia (733.90), Hypertension,benign(401.1), [facility] Historical Summary On: 30-Aug-2007 [...] WITH RADICULOPATHY (724.4) [facility] Payers MedicareAARP/[facility]; olivia guarantor
--- OUTSIDE RECORDS SUMMARY | 2018-06-25 22:13 | XMS RPT_ITS | Continuity of Care Document ---
:1940 Author Organization [facility] Address [address] [place] [address] Phone Care Team Providers Name Role Phone [...] Knee pain, unspecified laterality (719.46) Comments: Valorie:lot: [id number]: 09/20site/route: L knee Status: Active Leg pain, [...] days Quantity: 100 {Strip} Refills: 5 Ordered:20-Feb-2018 DO, Chaparrita AFast DO, Chaparrita A Start [...] DO, Chaparrita A Start : 22-Mar-2018 Active Comments:[id number] 09/20 Victoza 18 MG/3ML Subcutaneous Solution Pen-injector [...] spray daily for 0 days Quantity: 1 {Picacho} Refills: 0 Ordered:04-May-2016 SHONDA Andrade Start : [...] and dispense 8 ounes TOTAL mixed solutionCal [id number] if questions SPECTAZOLE, 1% (External Cream) 1 [...] 1 Ordered:17-Jan-2012 Fast DO, Chaparrita AFast DO, Chaaprrita A Start : 17-Jan-2012 End : 01-Nov-2012 [...] End : 11-Feb-2015 Discontinued Comments:[age], called to [facility] 08-30-14 erussell Allergies and Adverse [...] Meningioma (Renamed from ABNRM RESULT, FUNCTION STUDY, BRAIN/SOFTWARE IMPLEMENTATION PROJECT MANAGER 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 2016 right Cholecystectomy Completed lumbar jbmepf==3848 Completed Tonsillectomy Completed Date Value Details 19-Dec-2017 Echocardiogram Complete Result: Comments: See Note; NOTES: [facility] Cardiovascular Services [address] [place] [address] Echo Complete 12/19/17 0800 MR#: [id number] Acct: [id number] Name: CLARENCE ALBERT ep #: [id number] : 1940 77 From: Chuckie Cormier MD [...] Dictated: 12/19/17 0800 Date Transcribed: 12/19/17 1022 Balance Weigher: Signed 07-Dec-2017 Carotid Duplex Ultrasound Result: Comments: See Note; NOTES: [facility] Cardiovascular Services [address] [place] [address] Carotid Duplex Ultrasound 12/06/17 0901 MR#: [id number] Acct: [id number] Name: CLARENCE WHITTINGTON Rep #: [id number] : 1940 77 From: Anurag Loya MD Attending Dr: Chaparrita Albrecht DO Status: REG CLI Ordering Dr: Chaparriat Albrecht DO Date: 12/06/17 Location: [facility] Sex: [...] the left vertebral artery. Procedure Carotid Duplex 52291. Exam performed in department. Interpretation Summary Mild (<50%) stenosis right extracranial internal carotid. Mild (<50%) stenosis left extracranial internal carotid. Flow within the vertebral arteries is antegrade bilaterally. __ __ Ordering Physician: Chaparrita Albrecht Performed By: Margot Benton RVT and Student 12/07/17808 Date Anurag Loya MD CC: Chaparrita Albrecht DO Date Dictated: 12/06/17900 Date Transcribed: 12/07/17808 Balance Weigher: Signed 06-Dec-2017 SCREENING MAMM (CAD), BILAT Result: Comments: See Note; NOTES: [facility] Imaging Services [address] [place] [address] SCREENING MAMM (CAD), BILAT MR#: [id number] Acct: [id number] Name: CLARENCE ALBERT Rep #: [id number] : 1940 F 77 From: Misael Hebert MD PCP: Chaparrita Albrecht DO Status: REG CLI Study: SCREENING MAMM (CAD), BILAT Date of Exam: 12/06/17 Exam# [id number] Ordering Dr: Chaparrita Albrecht DO MAMM OGRAPHY [...] delay biopsy of a clinically suspicious abnormality. [id number] Electronically Signed: Misael Hebert MD at 15:31 EDT Tel [phone], Se rvice support , CC: Chaparrita Albrecht DO Balance Weigher: Signed 10-Jun-2017 Brain W/WO Contrast Result: Comments: See Note; NOTES: [facility] Imaging Services [address] [place] [address] Brain W/WO Contrast MR#: [id number] Acct: [id number] Name: CLARENCE ALBERT Rep #: [id number] : 1940 F 77 From: Laya Montilla MD PCP: Chaparrita Albrecht DO Status: REG CLI Study: Brain W/WO Contrast Date of Exam: 06/10/17 Exam# [id number] Ordering Dr: Chaparrita Albrecht DO STUDY: MRI [...] Service support , CC: Chaparrita Albrecht DO Balance Weigher: Signed 05-May-2017 Chest PA and Lateral Result: Comments: See Note; NOTES: [facility] Imaging Services [address] [place] [address] Chest PA and Lateral MR#: [id number] Acct: [id number] Name: CLARENCE ALBERT Rep #: [id number] : 1940 F 77 From: Edwar Patino MD PCP: Chaparrita Albrecht DO Status: REG CLI Study: Chest PA and Lateral Date of Exam: 05/05/17 Exam# [id number] Ordering Dr: Keri Singh MD STUDY: X-RAY [...] CC: Keri Singh MD; Chaparrita Albrecht DO Balance Weigher: Signed 02-Nov-2016 Dexa Bone Density Study (HP) Result: Comments: See Note; NOTES: [facility] Imaging Services [address] [place] [address] Verdana 4d Dexa Bone Density Study () MR#: [id number] Acct: [id number] Name: LYNNE ALBERT Rep #: [id number] : 1940 F 76 From: Misael Hebert MD PCP: Chaparrita Albrecht DO Status: REG CLI Study: Dexa Bone Density Study () Date of Exam: 11/02/16 Exam# [id number] Ordering Dr: Laura DO STUDY: DUAL ENERGY [...] Misael Hebert MD at 11:02 EDT Tel [phone], Service support , CC: Chaparrita Albrecht DO Balance Weigher: Signed 02-Nov-2016 SCREENING MAMM (CAD), BILAT Result: Comments: See Note; NOTES: [facility] Imaging Services [address] [place] [address] Verdana 4d SCREENING MAMM (CAD), BILAT MR#: [id number] Acct: [id number] Name: CLARENCE ALBERT Rep #: [id number] : 1940 F 76 From: Misael Hebert MD PCP: Chaparrita Albrecht DO Status: REG CLI Study: SCREENING MAMM (CAD), BILAT Date of Exam: 11/02/16 Exam# [id number] Ordering Dr: Case Albrecht DO MAMMOGRAPHY - [...] delay biopsy of a clinically suspicious abnormality. [id number] Electronically Signed: Misael Hebert MD at 12:44 EDT Tel [phone], Service support , CC: Chaparrita Albrecht DO Balance Weigher: Signed 05-Aug-2016 Venous Duplex Lower Extremity Result: Comments: See Note; NOTES: [facility] Cardiovascular Services [address] [facility] [place] [address] Venous Duplex US, Unilateral 08/05/16 1053 MR#: [id number] Acct: [id number] Name: CLARENCE WEI Rep #: [id number] : 1940 76 From: Elvin Natarajan MD [...] Dictated: 08/05/16 1053 Date Transcribed: 08/05/16 1127 Balance Weigher: Signed 27-May-2016 Knee 4 or More Views Result: Comments: See Note; NOTES: [facility] Imaging Services [address] [place] [address] Verdana 4d Knee 4 or More Views MR#: [id number] Acct: [id number] Name: CLARENCE ALBERT Rep #: [id number] : 1940 F 76 From: Misael Hebert MD PCP: Chaparrita Albrecht DO Status: REG CLI Study: Knee 4 or More Views Date of Exam: 05/27/16 Exam# [id number] Ordering Dr: Kylah Linda DO UDY: X-RAY [...] MD at 10:41 EST , Service support [phone], CC: Chaparrita Albrecht DO; Kylah Linda DO Balance Weigher: Signed 13-May-2016 Sinus/Facial Bone Result: Comments: See Note; NOTES: [facility] Imaging Services [address] [place] [address] Verdana 4d Sinus/Facial Bone MR#: [id number] Acct: [id number] Name: CLARENCE ALBERT Rep #: [id number] : 1940 F 76 From: Godwin Winter MD PCP: Chaparrita Albrecht DO Status: REG CLI Study: Sinus/Facial Bone Date of Exam: 05/13/16 Exam# [id number] Ordering Dr: Alejandro Silverman MD STUDY: CT [...] MD at 7:35 EST , Service support [phone], CC: Chaparrita Albrecht DO; Alejandro Silverman MD Balance Weigher: Signed 21-Apr-2016 Emergency Department Summary Result: Comments: See Note; NOTES: [facility] Medical Records Department [address] [place] [address] Emergency Department Summary MR#: [id number] Acct: [id number] Name: CLARENCE ALBERT Rep #: [id number] : 1940 76 From: Carissa Murphy MD [...] Left anterior epistaxis. CARISSA MURPHY MD T: [facility] JOB: [id number] 04/21/1606 <Electronically signed by Carissa Murphy MD> Date Carissa donovan MD Cosigner Signature (If Indicated): Date CC: Chaparrita Albrecht DO Date Dictated: 04/20/161711 Date Transcribed: 04/20/161711 Balance Weigher: Signed 20-Apr-2016 Discharge Instruction Result: Comments: See Note; NOTES: [facility] Medical Records Department [address] [place] [address] Discharge Instruction 04/20/16 1303 MR#: [id number] Acct: [id number] Name: CLARENCE ALBERT Rep #: [id number] : 1940 76 From: Carissa Murphy MD [...] your Primary Care Provider. Call [facility] ([phone]) or report to the closest Emergency Room. Call 911 if necessary. 04/20/16 1645 <Electronically signed by Carissa Murphy MD> Date Carissa Murphy MD Cosigner Signature (If I ndicated): Date CC: Chaparrita Albrecht DO 02-Nov-2015 Carotid Duplex Ultrasound Result: Comments: See Note; NOTES: [facility] Cardiovascular Services [address] [place] [address] Carotid Duplex Ultrasound 10/30/15 1100 MR#: [id number] Acct: [id number] Name: CLARENCE ALBERT Rep #: [id number] : 1940 75 From: Elvin Natarajan MD [...] the left vertebral artery. Procedure Carotid Duplex 88611. The exam was diagnostic. Exam performed in [...] Dictated: 10/30/15 1100 Date Transcribed: 11/02/15 1143 Balance Weigher: Signed 30-Oct-2015 Bilat Scrn Digital AND CAD Result: Comments: See Note; NOTES: [facility] Imaging Services [address] [place] [address] Verdana 4d Bilat Scrn Digital AND CAD MR#: [id number] Acct: [id number] Name: CLARENCE ALBERT Rep #: [id number] : 1940 F 75 From: Andres Brady MD PCP: Chaparrita Albrecht DO Status: REG CLI Study: Bilat Scrn Digital AND CAD Date of Exam: 10/30/15 Exam# [id number] Ordering Dr: Chaparrita Albrecht DO MAMMOGRAPHY - [...] biop sy of a clinically suspicious abnormality. [id number] Electronically Signed: Andres Brady MD at 17:48 EDT Tel , Service support [phone], CC: Chaparrita Albrecht DO Balance Weigher: Signed 30-Oct-2015 Bilat Ld Digital AND CAD Result: Comments: See Note; NOTES: [facility] Imaging Services [address] [place] [address] Verdana 4d Bilat Scrn Digital AND CAD MR#: [id number] Acct: [id number] Name: CLARENCE ALBERT Rep #: [id number] : 1940 F 75 From: Andres Brady MD PCP: Chaparrita Albrecht DO Status: REG CLI Study: Bilat Ld Digital AND CAD Date of Exam: 10/30/15 Exam# [id number] Ordering Dr: Chaparrita Albrecht DO MAMMOGRAPHY - [...] abnormalities are identified. CC: Chaparrita Albrecht DO Balance Weigher: Signed 22-Oct-2015 ELECTROCARDIOGRAM, COMPLETE (ECG) (50173) Comments: ekg showed normal sinus rhythym, normal axis, no acute st/t wave changes no change Result: [MEASUREMENTS ANALYSIS] Date of Test: 10/22/2015 14:41:29; Heart Rate: 71; MA Interval: 140; QRS: 94; QT Interval: 384; Corrected QT Interval (QTc): 403; P Wave [place]: 58; QRS Wave [place]: -3; T Wave [place]: 56; Blood Pressure: 128/76 [ECG DIAGNOSTIC STATEMENTS] Date of Test: 10/22/2015 14:41:29; Summary: Sinus Rhythm Low voltage -possible pulmonary disease. ABNORMAL 22-Jul-2015 Kidney and Bladder Result: Comments: See Note; NOTES: [facility] Imaging Services [address] [place] [address] Verdana 4d Kidney and Bladder MR#: [id number] Acct: [id number] Name: Yaniv ALBERT Rep #: [id number] : 1940 F 75 From: Nir Sanchez MD PCP: Chaparrita Albrecht DO Status: REG CLI Study: Kidney and Bladder Date of Exam: 07/22/15 Exam# [id number] Ordering Dr: Chaparrita Albrecht DO STUDY: RENAL [...] at 4:59 EDT Tel , Service support [phone], CC: Chaparrita Albrecht DO Balance Weigher: Signed 11-Mar-2015 Knee 4 or More Views Result: Comments: See Note; NOTES: [facility] Imaging Services [address] [place] [address] Verdana 4d Knee 4 or More Views MR#: [id number] Acct: [id number] Name: CLARENCE ALBERT Rep #: [id number] : 1940 F 74 From: Trent Cameron DO PCP: Chaparrita Albrecht DO Status: REG CLI Study: Knee 4 or More Views Date of Exam: 03/11/15 Exam# [id number] Ordering Dr: Case Albrecht DO STUDY: X-RAY [...] at 7:45 EST Tel , Service support [phone], RAD/Knee 4 or More Views IMPRESSION: Degener ative changes within the knee. No acute fracture. Small suprapatellar effusion. Electronically Signed: Trent Cameron DO at 7:45 EST Tel , Service support [phone], CC: Chaparrita Albrecht DO Balance Weigher: Signed 11-Mar-2015 Knee 4 or More Views Result: Comments: See Note; NOTES: [facility] Imaging Services [address] [place] [address] Verdana 4d Knee 4 or More Views MR#: [id number] Acct: [id number] Name: CLARENCE ALBERT Rep #: [id number] : 1940 F 74 From: Trent Cameron DO PCP: Chaparrita Albrecht DO Status: REG CLI Study: Knee 4 or More Views Date of Exam: 03/11/15 Exam# [id number] Ordering Dr: Case Albrecht DO STUDY: X-RAY [...] at 7:46 EST Tel , Service support [phone], RAD/Knee 4 or More Views IMPRESSION: Mild degenerative changes. No acute bony abnormality. Electronically Signed: Trent Cameron DO at 7:46 EST Tel , Service support [phone], CC: Chaparrita Albrecht DO Balance Weigher: Signed 18-Oct-2014 Carotid Duplex Ultrasound Result: Comments: See Note; NOTES: [facility] Cardiovascular Services [address] [place] [address] Carotid Duplex Ultrasound 10/18/14 1331 MR#: [id number] Acct: [id number] Na me: CLARENCE ALBERT Rep #: [id number] : 1940 74 From: Elvin Natarajan MD [...] the left vertebral artery. Procedure Carotid Duplex 88217. The exam was diagnostic. Exam performed in [...] Dictated: 10/18/14 1331 Date Transcribed: 10/18/14 161 Balance Weigher: Signed 18-Oct-2014 Saad Jaffe Digital AND CAD Result: Comments: See Note; NOTES: [facility] Imaging Services [address] [place] [address] Breast Imaging Report MR#: [id number] Acct: [id number] Name: CLARENCE ALBERT Rep #: [id number] : 1940 F 74 From: Misael Hebert MD PCP: Chaparrita Albrecht DO Status: REG CLI Study: Saad Jaffe Digital AND CAD Date of Exam: 10/18/14 Exam# [id number] Ordering Dr: Chaparrita Albrecht DO MAMMOGRAPHY - [...] Misael redmond MD at 13:44 EDT Tel [phone], Service support [phone], CC: Chaparrita Albrecht DO Balance Weigher: Signed 09-Jul-2014 Dexa Bone Density Study (HP) Result: Comments: See Note; NOTES: [facility] Imaging Services [address] [place] [address] Bone Density Report MR#: [id number] Acct: [id number] Name: CLARENCE ALBERT Rep #: [id number] : 1940 F 74 From: Misael Hebert MD PCP: Chaparrita Albrecht DO Status: [place] CL Study: Dexa Bone Density Study (HP) Date of Exam: 07/09/14 Exam# [id number] Ordering Dr: Chaparrita Albrecht DO STUDY: DUAL [...] Angel Hebert MD at 14:55 EDT Tel [phone], Service support [phone], CC: Chaparrita Albrecht DO Balance Weigher: Signed 17-Sep-2013 Chest PA and Lateral Result: Comments: See Note; NOTES: [facility] Imaging Services [address] [place] [address] Radiology Report MR#: [id number] Acct: [id number] Name: CLARENCE ALBERT Rep #: [id number] : 1940 F 73 From: David Bennett MD PCP: Chaparrita Albrecht DO Status: REG CLI Study: Chest PA and Lateral Date of Exam: 09/17/13 Exam# [id number] Ordering Dr: Chaparrita Albrecht DO STUDY: X-RAY [...] MD at 20:44 EDT , Service support [phone], RAD/Chest PA and Lateral IMPRESSION: No focal infiltrate or edema. Electronic ally Signed: David Bennett MD at 20:44 EDT , Service support [phone], CC: Chaparrita Albrecht DO Balance Weigher: Signed 17-Sep-2013 Spirometry (05539) Result: 29-Aug-2013 Carotid Duplex Ultrasound Result: Comments: See Note; NOTES: [facility] Cardiovascular Services [address] [place] [address] Carotid Duplex Ultrasound 08/24/13 0939 MR#: [id number] Acct: [id number] Chalo e: CLARENCE ALBERT Rep #: [id number] : 1940 73 From: Anurag Loya MD Attending Dr: Chaparrita Albrecht DO Status: REG CLI Ordering Dr: Chaparrita Albrecht DO Date: 08/24/13 Location: [facility] Sex: F C Admitted: Rt. Velocities/BP Lt. [...] in the left bulb. Procedure Carotid Duplex 34765. Exam perfor med in department. Interpretation Summary Mild (<50%) stenosis right extracranial internal carotid. Mild (<50%) stenosis left extracranial internal carotid. Flow within the vertebra l arteries is antegrade bilaterally. Ordering Physician: Chaparrita Albrecht Performed By: Kendal Benton RVT : Chaparrita Albrecht DO Date Dictated: 08/24/13 0939 Date Transcribed: 08/29/13 1118 Balance Weigher: Signed Immunization Name Dates Details Influenza (3 years and up) on: 16-Jan-2008 Comments: Lot #: [id number] date: 09/10Amount given: 0.5 mlRoute: IMSite given: Left deltoidGiven by: Olivia Bell LPN Influenza (3 years and up) on: 09-Jan-2009 Comments: Lot #[id number]-left deltoidDose0.5mlgiven by Marycarmen Jorge LPN Pneumococcal (2 years and up) on: 29-Aug-2007 Comments: 0.5cc given im lt arm [id number] exp 02-13-08 Family History Unknown Family Member [...] kg/m2 Body Surface Area Calculated 1.76 m2 91-Ffi-177736:39 Temperature 97.9 f Comments: Method: Temporal Pulse [...] copy of this report has been sent [phone].PATIENT WAS FASTINGPERFORMED BY: ZappyLabOverlook Medical CenterNujmyw1192 [facility] [id number] Alb/Creat Ratio 4475.5 {mg/g_creat} (Abnormal) Range: 0.0-30.0 Comments: Normal: 0.0 - 30.0 Albuminuria: 31.0 - 300.0 Clinical albuminuria: >300.0 Albumin, Urine 2085.6 ug/mL (Normal) Comments: Results confirmed ondilution. Creatinine, Urine 46.6 mg/dL (Normal) :33 CBC With Differential/Platelet Comments: A courtesy copy of this report has been sent [phone].PATIENT WAS FASTINGPERFORMED BY: ZappyLabOverlook Medical CenterXwpwik1378 [facility] [id number] Information: ADD CBC Immature Grans (Abs) 0.0 [...] copy of this report has been sent [phone].PATIENT WAS FASTINGPERFORMED BY: [facility]Lab [facility] [id number] :33 Range: 1.6-2.3 :33 Microscopic Examination Comments: A courtesy copy of this report has been sent [phone].PATIENT WAS FASTINGPERFORMED BY: ZappyLab Barafon WilloughbyDefend Your HeadBlue [facility] Hospital [id number] Bacteria Few (Normal) Mucus Threads Present (Normal) Epithelial Cells (non 0-10 {/hpf} Range: 0 - 10 renal) (Normal) RBC 0-2 {/hpf} (Normal) Range: 0 - 2 WBC 0-5 {/hpf} (Normal) Range: 0 - 5 : PTH, Intact 29 pg/mL (Normal) Comments: A courtesy copy of this report has been sent [phone].PATIENT WAS FASTINGPERFORMED BY: [facility] Gvytqs3823 [facility] [id number] 33 Range: 15-65 :33 Renal Panel (10) Comments: A courtesy copy of this report has been sent [phone].PATIENT WAS FASTINGPERFORMED BY: [facility] Barafon Willoughby [facility] [id number] Phosphorus 4.0 mg/dL (Normal) Range: 2.5-4.5 :33 Vitamin D Hydroxy (61610) Comments: A courtesy copy of this report has been sent [phone].PATIENT WAS FASTINGPERFORMED BY: [employer] Xybwkk6782 [facility] [id number] Vitamin D, 25-Hydroxy 36.8 ng/mL (Normal) Range: 30.0-100.0 Comments: Vitamin D deficiency has been defined by the [place] of[place] and an Endocrine Society practice guideline as alevel of serum 25-OH vitamin D less than 20 ng/mL (1,2).The Endocrine Society went on to further define vitamin Dinsufficiency as a level between 21 and 29 ng/mL (2).1. IOM ([place] [employer]). 2010. Dietary reference intakes for calcium and D. [place]: The National Academies Press.2. Mira MF, Rosette LOPEZ, Tommy SWAIN, et al. Evaluation, treatment, and prevention of vitamin D deficiency: an Endocrine Society clinical practice guideline. JCEM. 2010; 96(7):1911-30. :33 URINALYSIS, W/ MICRO (02376) Comments: A courtesy copy of this report has been sent [phone].PATIENT WAS FASTINGPERFORMED BY: Sparkbuy6370 [facility]bySaint [facility] [id number] Microscopic Examination See below: (Normal) Comments: Microscopic was indicated and was performed. Nitrite, Urine Negative (Normal) Urobilinogen,Semi-Qn 0.2 mg/dL (Normal) Range: 0.2-1.0 Bilirubin Negative (Normal) Occult Blood Negative (Normal) Ketones Negative (Normal) Glucose Negative (Normal) Protein 3+ (Abnormal) WBC Esterase Negative (Normal) Appearance Clear (Normal) Urine-Color Yellow (Normal) pH 5.5 (Normal) Range: 5.0-7.5 Specific [place] 1.012 (Normal) Range: 1.005-1.030 :33 LIPID PANEL (79849) Comments: A courtesy copy of this report has been sent [phone].PATIENT WAS FASTINGPERFORMED BY: Sparkbuy6370 [facility] [id number] LDL/HDL Ratio 1.4 {ratio} (Normal) Range: 0.0-3.2 [...] copy of this report has been sent [phone].PATIENT WAS FASTINGPERFORMED BY: LabCoOverlook Medical CenterNiavgk6879 [facility] [id number] (91087) ALT (SGPT) 11 [iU]/L (Normal) Range: 0-32 [...] 8-27 Glucose 162 mg/dL (Abnormal) Range: 65-99 65-Qtf-043359:24 HgA1C , Office (48287) HgA1C , Office 6.5 % (Normal) Range: 4.6 - 7.1 :33 HGB A1C (58649) Comments: A courtesy copy of this report has been sent [phone].PATIENT WAS FASTINGPERFORMED BY: 1001 Menus LabSounder6370 QuickGiftsLev[facility] [id number] Hemoglobin A1c 6.3 % (Abnormal) Range: 4.8-5.6 Comments: . Prediabetes: 5.7 - 6.4 Diabetes: >6.4 Glycemic control for adults with diabetes: <7.0 :14 LIPID PANEL (40660) Comments: PATIENT WAS FASTINGPERFORMED BY: Sparkbuy6370 Will[place] [facility] [id number] LDL/HDL Ratio 1.1 {ratio} (Normal) Range: 0.0-3.2 [...] (Normal) Range: 100-199 :14 Vitamin D Hydroxy (99868) Comments: PATIENT WAS FASTINGPERFORMED BY: LabCo Yjegpq5880 [facility] [id number] Vitamin D, 25-Hydroxy 37.8 ng/mL (Normal) Range: 30.0-100.0 Comments: Vitamin D deficiency has been defined by the [place] of[place] and an Endocrine Society practice guideline as alevel of serum 25-OH vitamin D less than 20 ng/mL (1,2).The Endocrine Society went on to further define vitamin Dinsufficiency as a level between 21 and 29 ng/mL (2).1. IOM ([place]). 2010. Dietary reference intakes for calcium and D. [place]: The National Academies Press.2. Mira MF, Rosette LOPEZ, Tommy SWAIN, et al. Evaluation, treatment, and prevention of vitamin D deficiency: an Endocrine Society clinical practice guideline. JCEM. 2010; 96(7):1911-30. -:14 CBC with auto diff (48861) Comments: PATIENT WAS FASTINGPERFORMED BY: LabCoOverlook Medical CenterMiqbfy1820 [facility] [id number] Immature Grans (Abs) 0.0 {x10E3/uL} (Normal) Range: [...] PANEL, COMPREHENSIVE Comments: PATIENT WAS FASTINGPERFORMED BY: LabCoOverlook Medical CenterQpbipw9344 [facility] [id number] (08073) ALT (SGPT) 10 [iU]/L (Normal) Range: 0-32 [...] CREATININE RATIO Comments: PATIENT WAS FASTINGPERFORMED BY: LabFormerly [facility]6370 [facility] [id number] (72752) AND (94965) Alb/Creat Ratio 4213.3 {mg/g_creat} (Abnormal) Range: 0.0-30.0 Albumin, Urine 3206.3 ug/mL (Normal) Comments: Results confirmed ondilution. Creatinine, Urine 76.1 mg/dL (Normal) :40 CBC & PLATELETS (AUTO) (84325) Comments: please fax to Dr. Austin- [phone]; PATIENT WAS FASTINGPERFORMED BY: RHLvision TechnologiesOverlook Medical CenterTuuogm1520 [facility] [id number] Platelets 148 {x10E3/uL} (Abnormal) Range: 150-379 RDW [...] PANEL Comments: please fax to Dr. Austin- [phone]; PATIENT WAS FASTINGPERFORMED BY: ZappyLabOverlook Medical CenterFgkvvz8164 [facility] [id number] Information: [id number] FX DR. SANTANA (05116) Albumin 3.1 g/dL (Abnormal) Range: 3.5-4.8 Phosphorus [...] 133 mg/dL (Abnormal) Range: 65-99 :40 MAGNESIUM (98319) Comments: please fax to Dr. Austin- [phone]; PATIENT WAS FASTINGPERFORMED BY: [facility] Fynjnc4687 [address] RoadDublin [place] [id number] Magnesium 1.9 mg/dL (Normal) Range: 1.6-2.3 :40 CALCIFEDIOL (64889) Comments: please fax to Dr. Austni- [phone]; PATIENT WAS FASTINGPERFORMED BY: [facility] Qhmexi8031 [address] RoadDublin [place] [id number] Vitamin D, 25-Hydroxy 29.4 ng/mL (Abnormal) Range: 30.0-100.0 Comments: Vitamin D deficiency has been defined by the [place] of[place] and an Endocrine Society practice guideline as alevel of serum 25-OH vitamin D less than 20 ng/mL (1,2).The Endocrine Society went on to further define vitamin Dinsufficiency as a level between 21 and 29 ng/mL (2).1. IOM ([place] of Medicine). 2010. Dietary reference intakes for calcium and D. [place]: The National Academies Press.2. Mira MF, Rosette NC, Tommy SWAIN, et al. Evaluation, treatment, and prevention of vitamin D deficiency: an Endocrine Society clinical practice guideline. JCEM. 2010; 96(7):1911-30. :40 PARATHORMONE (49602) Comments: please fax to Dr. Austin- [phone]; PATIENT WAS FASTINGPERFORMED BY: [facility] Ykgsze3968 [address] RoadDublin [place] [id number] PTH, Intact 22 pg/mL (Normal) Range: 15-65 97-Gsr-26776:30 COLON BIOPSY (CHOOSE See Note (Normal) Comments: [facility] Hcbjdmvpfr0[address] [place], [address] S[address]) Comments: Patient: CLARENCE ALBERT : 1940 (77/F) Acct Num: [id number] Phys: Marcus Caldera Unit Num: [id number] Loc: LABSPEC Specimen: [id number] Received: 09/16/171528 Spec Type: Kendal MAURER TISSUES [...] one cassette. / MARCY:dustin 09/19/17 TC:1 CPT: 44006 x2 HEADER OPERATION: Colonoscopy PRE-OP DIAGNOSIS: History of polyps TISSUE SUBMITTED: A Proximal sigmoid polyp, rule out adenoma, B Transversecolon, rule out adenoma MICROSCOPIC DESCRIPTION Slides are reviewed. M ICROSCOPIC DIAGNOSIS A. Proximal sigmoid polyp, biopsy: Fragments of tubular adenoma. B. Transverse colon polyp, biopsy: Fragments of tubular adenoma. SJ:dustin 09/20/17 Signed _ Nacho Ardon 09/20/17 <signature on file> 75-Dxb-60159:24 METABOLIC PANEL, COMPREHENSIVE Comments: PATIENT NOT FASTINGPERFORMED BY: LabCo Fvcbww0497 [facility] [id number] (47846) ALT (SGPT) 14 [iU]/L (Normal) Range: 0-32 [...] (Abnormal) Range: 65-99 :07 HgA1C , Office (19692) HgA1C , Office 7.2 % (Abnormal) Range: 4.6 - 7.1 :37 Clostridium difficile Toxin Comments: PATIENT NOT FASTINGPERFORMED BY: [employer] [facility] [id number] A+B, EIA (16008) C difficile Toxins A+B, EIA Negative (Normal) :37 LEUKOCYTE COUNT, FECAL (67037) Comments: PATIENT NOT FASTINGPERFORMED BY: [employer] Barafon [facility] [id number] Result 1 NWBC (Normal) Comments: No white blood cells seen. White Blood Cells (WBC), Final report (Normal) Stool :37 OVA & PARASITE DIR SMEAR Comments: PATIENT NOT FASTINGPERFORMED BY: [employer] [facility] [id number] (35856) Result 1 NOCP (Normal) Comments: No ova, cysts, or parasites seen. Ova + Parasite Exam Final report (Normal) Comments: These results were obtained using wet preparation(s) and trichromestained smear. This test does not include testing for Cryptosporidiumparvum, Cyclospora, or Microsporidia. :37 SETH CULTURE-STOOL (59073) Comments: PATIENT NOT FASTINGPERFORMED BY: [employer] Amkwgn[address] [facility] [id number] Information: SRC:ST SRC:ST E coli Shiga Toxin EIA Negative (Normal) Result 1 NCI (Normal) Comments: No Campylobacter species isolated. Campylobacter Culture Final report (Normal) Result 1 NSS (Normal) Comments: No Salmonella or Shigella recovered. Salmonella/Shigella Screen Final report (Normal) :06 Renal function Panel Comments: fax copy to Dr. Santana [phone]; A courtesy copy of this report has been sent [phone].PATIENT NOT FASTINGPERFORMED BY: [employer] Sylfip[address] [facility] [id number] Information: NURSE DRAW (50821) Albumin 3.5 g/dL (Normal) Range: 3.5-4.8 Phosphorus [...] copy of this report has been sent [phone].PATIENT NOT FASTINGPERFORMED BY: [facility] Laaqpm6852 [facility] [id number] :02 Range: 15-65 Vitamin D, 25-Hydroxy 34.7 ng/mL (Normal) Comments: A courtesy copy of this report has been sent [phone].PATIENT NOT FASTINGPERFORMED BY: [employer] Klmtit1504 [facility] [id number] :02 Range: 30.0-100.0 Comments: Vitamin D deficiency has been defined by the [place] of[place] and an Endocrine Society practice guideline as alevel of serum 25-OH vitamin D less than 20 ng/mL (1,2).The Endocrine Society went on to further define vitamin Dinsufficiency as a level between 21 and 29 ng/mL (2).1. IOM ([place] of [place]). 2010. Dietary reference intakes for calcium and D. [place]: The National Academies Press.2. Mira MF, Rosette LOPEZ, Tommy SWAIN, et al. Evaluation, treatment, and prevention of vitamin D deficiency: an Endocrine Society clinical practice guideline. JCEM. 2010; 96(7):1911-30. 5-Zbb-363952:02 MICROALBUMIN: CREATININE RATIO Comments: send results to Dr. Santana fax: [phone]; A courtesy copy of this report has been sent [phone].PATIENT NOT FASTINGPERFORMED BY: Sparkbuy[address] [facility] [id number] (51904) AND (94568) Alb/Creat Ratio 4191.2 {mg/g_creat} (Abnormal) Range: 0.0-30.0 Albumin, Urine 2380.6 ug/mL (Normal) Comments: Results confirmed ondilution. Creatinine, Urine 56.8 mg/dL (Normal) :02 CBC, PLATELETS & MANUAL Comments: send results to Dr. Santana fax: [phone]; A courtesy copy of this report has been sent [phone].PATIENT NOT FASTINGPERFORMED BY: [employer] Bmhibt9866 [facility] [id number] Information: VIT D25, PTH DIFF (10520) Immature Grans (Abs) 0.0 {x10E3/uL} (Normal) Range: [...] 3.77-5.28 WBC 5.4 {x10E3/uL} (Normal) Range: 3.4-10.8 8-Ddo-988359:02 MAGNESIUM (44040) Comments: send results to Dr. Santana fax: [phone]; A courtesy copy of this report has been sent [phone].PATIENT NOT FASTINGPERFORMED BY: LabCo Tctlwp1662 [facility] [id number] Magnesium, Serum 1.8 mg/dL (Normal) Range: 1.6-2.3 0-Lyj-041954:02 RENAL FUNCTION PANEL (70121) Comments: send results to Dr. Santana fax: [phone]; A courtesy copy of this report has been sent [phone].PATIENT NOT FASTINGPERFORMED BY: [facility] Zrakvc9088 [facility] [id number] Albumin, Serum 3.7 g/dL (Normal) Range: 3.5-4.8 [...] Glucose, Serum 119 mg/dL (Abnormal) Range: 65-99 9-Hbk-236797:07 LIPID PANEL (74389) Comments: PATIENT WAS FASTINGPERFORMED BY: [employer] ([place]unshan) Colin6370 [facility] [id number] LDL/HDL Ratio 1.4 {ratio} (Normal) Range: 0.0-3.2 Comments: LDL/HDL Ratio Men Women 1/2 Avg.Risk 1.0 1.5 Av g.Risk 3.6 3.2 2X Avg.Risk 6.2 5.0 3X Avg.Risk 8.0 6.1 LDL Cholesterol Calc 102 mg/dL (Abnormal) Range: 0-99 VLDL Cholesterol Cesar 17 mg/dL (Normal) Range: 5-40 HDL Cholesterol 75 mg/dL (Normal) Triglycerides 84 mg/dL (Normal) Range: 0-149 Cholesterol, Total 194 mg/dL (Normal) Range: 100-199 3-Lkh-714786:07 CBC W/AUTO DIFF WBC (77037) Comments: PATIENT WAS FASTINGPERFORMED BY: USINE IO Iqvvxa8973 [facility] [id number] Immature Grans (Abs) 0.0 {x10E3/uL} (Normal) Range: [...] 3.77-5.28 WBC 4.8 {x10E3/uL} (Normal) Range: 3.4-10.8 3-Nyc-427093:07 METABOLIC PANEL, COMPREHENSIVE Comments: PATIENT WAS FASTINGPERFORMED BY: LabCoOverlook Medical CenterVwpaaf8844 [facility] [id number] (22210) ALT (SGPT) 14 [iU]/L (Normal) Range: 0-32 [...] 8-27 Glucose 158 mg/dL (Abnormal) Range: 65-99 8-Ony-592349:07 VITAMIN B-12 (CYANOCOBALAMIN) Comments: PATIENT WAS FASTINGPERFORMED BY: LabCoOverlook Medical CenterUhueae1965 [facility] [id number] (66721) Vitamin B12 771 pg/mL (Normal) Range: 232-1245 13-May-20170:00 CDIFF (Molecular) Comments: [facility] Budapzoegm[address] [place], [place], [address] CDIFF See Note (Normal) Comments: Cdiff-MolecularNormal Reference Range = Negative C. Diff DNA Negative- No toxigenic C. Diff DNA DetectedNAAT METHOD Testing was performed using nucleic acid amplification 05-May-20179:32 Rapid Flu (57073 x 2) Influenza A Ag Negative (Normal) :35 CBC with auto diff (45306) Comments: PATIENT WAS FASTINGPERFORMED BY: LabCoOverlook Medical CenterPwtxok3521 [facility] [id number] Immature Grans (Abs) 0.0 {x10E3/uL} (Normal) Range: [...] PANEL, COMPREHENSIVE Comments: PATIENT WAS FASTINGPERFORMED BY: LabCoOverlook Medical CenterMkdlyj2409 [facility] [id number] (44102) ALT (SGPT) 16 [iU]/L (Normal) Range: 0-32 [...] Glucose, Serum 145 mg/dL (Abnormal) Range: 65-99 67-Lgm-355754:51 HgA1C , Office (64282) HgA1C , Office 6.7 % (Normal) Range: 4.6 - 7.1 6-Xzd-926804:50 CALCIFEDIOL (10959) Comments: A courtesy copy of this report has been sent [phone].PATIENT WAS FASTINGPERFORMED BY: LabFormerly [facility]6370 [facility] [id number] Vitamin D, 25-Hydroxy 40.7 ng/mL (Normal) Range: 30.0-100.0 Comments: Vitamin D deficiency has been defined by the [place] of[place] and an Endocrine Society practice guideline as alevel of serum 25-OH vitamin D less than 20 ng/mL (1,2).The Endocrine Society went on to further define vitamin Dinsufficiency as a level between 21 and 29 ng/mL (2).1. IOM ([place] of [place]). 2010. Dietary reference intakes for calcium and D. [place]: The National Academies Press.2. Mira MF, Rosette NC, Tommy SWAIN, et al. Evaluation, treatment, and prevention of vitamin D deficiency: an Endocrine Society clinical practice guideline. JCEM. 2010; 96(7):1911-30. 3-Ggr-601576:50 PTH (PARATHORMONE) (58222) Comments: A courtesy copy of this report has been sent [phone].PATIENT WAS FASTINGPERFORMED BY: Digital Ally70 [facility]GiftsLev[facility] [id number] PTH, Intact 20 pg/mL (Normal) Range: 15-65 6-Fpx-812120:50 MICROALBUMIN: CREATININE RATIO Comments: A courtesy copy of this report has been sent [phone].PATIENT WAS FASTINGPERFORMED BY: [employer] Ally70 [facility]GiftsLev[facility] [id number] (11844) AND (60258) Microalb/Creat Ratio 4376.0 {mg/g_creat} (Abnormal) Range: 0.0-30.0 Microalbumin, Urine 3369.5 ug/mL (Normal) Comments: Results confirmed ondilution. Creatinine, Urine 77.0 mg/dL (Normal) 9-Coe-435626:50 Renal function Panel Comments: A courtesy copy of this report has been sent [phone].PATIENT WAS FASTINGPERFORMED BY: [employer] Wnhpxo[address] [facility] [id number] Information: SARA SANTANA [phone] (27481) Albumin, Serum 3.8 g/dL (Normal) Range: 3.5-4.8 [...] Glucose, Serum 203 mg/dL (Abnormal) Range: 65-99 5-Aes-680565:50 Magnesium (44929) Comments: A courtesy copy of this report has been sent [phone].PATIENT WAS FASTINGPERFORMED BY: Course HeroFormerly [facility] Hospital6370 [facility] [id number] Magnesium, Serum 1.8 mg/dL (Normal) Range: 1.6-2.3 :53 CBC with auto diff (55612) Comments: A courtesy copy of this report has been sent [phone].PATIENT WAS FASTINGPERFORMED BY: ZappyLabOverlook Medical CenterUgyvnb0349 [facility] [id number] Immature Grans (Abs) 0.0 {x10E3/uL} (Normal) Range: [...] {x10E3/uL} (Normal) Range: 3.4-10.8 :53 LIPID PANEL (74755) Comments: A courtesy copy of this report has been sent [phone].PATIENT WAS FASTINGPERFORMED BY: [employer] Vthlyn2721 [facility] [id number] LDL/HDL Ratio 1.2 {ratio_units} (Normal) Range: 0.0-3.2 [...] copy of this report has been sent [phone].PATIENT WAS FASTINGPERFORMED BY: RHLvision TechnologiesOverlook Medical CenterPcqbya7961 [facility] [id number] (23329) ALT (SGPT) 11 [iU]/L (Normal) Range: 0-32 [...] Glucose, Serum 205 mg/dL (Abnormal) Range: 65-99 31-Pmh-017934:57 HgA1C , Office (07661) HgA1C , Office 7.1 % (Normal) Range: 4.6 - 7.1 :09 LIPID PANEL (84674) Comments: PATIENT WAS FASTINGPERFORMED BY: Contratan.do [facility] [id number] LDL/HDL Ratio 1.3 {ratio_units} (Normal) Range: 0.0-3.2 [...] PANEL, COMPREHENSIVE Comments: PATIENT WAS FASTINGPERFORMED BY: DxTerityLev[facility] [id number] (93206) ALT (SGPT) 12 [iU]/L (Normal) Range: 0-32 [...] Glucose, Serum 152 mg/dL (Abnormal) Range: 65-99 4-Mrc-903092:50 HgA1C , Office (71451) HgA1C , Office 6.7 % (Normal) Range: 4.6 - 7.1 :25 Magnesium, Serum 1.9 mg/dL (Normal) Comments: PATIENT WAS FASTINGPERFORMED BY: EVE ZappyLabOverlook Medical CenterWsuyfe0247 [facility] [id number] Range: 1.6-2.3 :25 Microalb/Creat Ratio, RandCox South Comments: PATIENT WAS FASTINGPERFORMED BY: ZappyLabZuni HospitalDkoavo0615 [facility] [id number] Microalb/Creat Ratio 2652.0 {mg/g_creat} Range: 0.0-30.0 (Abnormal) Microalbumin, Urine 2482.3 ug/mL (Normal) Comments: Results confirmed ondilution. Creatinine, Urine 93.6 mg/dL (Normal) PTH, Intact 26 pg/mL (Normal) Comments: PATIENT WAS FASTINGPERFORMED BY: [facility] Mvtqwx1430 [address] RoadDublin [place] [id number] :25 Range: 15-65 :25 Renal Panel (10) Comments: PATIENT WAS FASTINGPERFORMED BY: [facility] Xdfkic[address] [facility] HospitalD[facility] [place] [id number] Phosphorus, Serum 4.3 mg/dL (Normal) Range: 2.5-4.5 :25 Thyroxine (T4) Free, Direct, S Comments: PATIENT WAS FASTINGPERFORMED BY: Course HeroSaint [facility] Hospital [facility] Nbyzvg[address] [facility] HospitalD[facility] [place] [id number] T4,Free(Direct) 1.08 ng/dL (Normal) Range: 0.82-1.77 : TSH 2.980 {uIU/mL} Comments: PATIENT WAS FASTINGPERFORMED BY: [facility] Jarruy3947 [address] RoadDublin [place] [id number] 25 (Normal) Range: 0.450-4.500 : Vitamin D, 25-Hydroxy 37.1 ng/mL (Normal) Comments: PATIENT WAS FASTINGPERFORMED BY: LabCo Fyzmmz3827 [address] RoadDublin [place] [id number] 25 Range: 30.0-100.0 Comments: Vitamin D deficiency has been defined by the [place] of[place]icine and an Endocrine Society practice guideline as alevel of serum 25-OH vitamin D less than 20 ng/mL (1,2).The Endocrine Society went on to further define vitamin Dinsufficiency as a level between 21 and 29 ng/mL (2).1. IOM ([place] of [place]). 2010. Dietary reference intakes for calcium and D. [place]: The National Academies Press.2. Mira MF, Rosette LOPEZ, Tommy SWAIN, et al. Evaluation, treatment, and prevention of vitamin D deficiency: an Endocrine Society clinical practice guideline. JCEM. 2010; 96(7):1911-30. :25 CBC W/AUTO DIFF WBC (65746) Comments: PATIENT WAS FASTINGPERFORMED BY: Padloc70 QuickGiftsLevine [facility] [id number] Immature Grans (Abs) 0.0 {x10E3/uL} (Normal) Range: [...] PANEL, COMPREHENSIVE Comments: PATIENT WAS FASTINGPERFORMED BY: [facility] Iteydf0479 [facility] [id number]; non- emergent till apt (07295) ALT (SGPT) 10 [iU]/L (Normal) Range: 0-32 [...] mg/dL (Abnormal) Range: 65-99 03-Aug-20169:25 LIPID PANEL (02517) Comments: PATIENT WAS FASTINGPERFORMED BY: [facility] Hhtmyd5013 [facility] [id number] LDL/HDL Ratio 0.9 {ratio_units} (Normal) Range: 0.0-3.2 [...] (Normal) Range: 100-199 :54 HgA1C , Office (99617) HgA1C , Office 6.6 % (Normal) Range: 4.6 - 7.1 :1 Magnesium, Serum 2.1 mg/dL (Normal) Comments: PATIENT WAS FASTINGPERFORMED BY: DxTerityLev[facility] [id number] 2 Range: 1.6-2.3 :12 Microalb/Creat Ratio, Randm Ur Comments: PATIENT WAS FASTINGPERFORMED BY: [facility]TerityLev[facility] [id number] Microalb/Creat Ratio 1863.4 {mg/g_creat} (Abnormal) Range: 0.0-30.0 Microalbumin, Urine 1416.2 ug/mL (Normal) Comments: Results confirmed ondilution. Creatinine, Urine 76.0 mg/dL (Normal) :12 Microscopic Examination Comments: PATIENT WAS FASTINGPERFORMED BY: [facility]ityLev[facility] [id number] Bacteria None seen (Normal) Mucus Threads Present (Normal) Cast Type Hyaline casts (Normal) Casts Present {/lpf} (Abnormal) Epithelial Cells (non 0-10 {/hpf} Range: 0 - 10 renal) (Normal) RBC 3-10 {/hpf} Range: 0 - 2 (Abnormal) WBC 6-10 {/hpf} Range: 0 - 5 (Abnormal) PTH, Intact 36 pg/mL (Normal) Comments: PATIENT WAS FASTINGPERFORMED BY: [facility]Lev[facility] [id number] 0:12 Range: 15-65 Vitamin D, 25-Hydroxy 42.9 ng/mL (Normal) Comments: PATIENT WAS FASTINGPERFORMED BY: [facility]ityLev[facility] [id number] 0:12 Range: 30.0-100.0 Comments: Vitamin D deficiency has been defined by the [place] of[place] and an Endocrine Society practice guideline as alevel of serum 25-OH vitamin D less than 20 ng/mL (1,2).The Endocrine Society went on to further define vitamin Dinsufficiency as a level between 21 and 29 ng/mL (2).1. IOM ([place] of [place]). 2010. Dietary reference intakes for calcium and D. [place]: The National Academies Press.2. Mira MF, Rosette LOPEZ, Tommy SWAIN, et al. Evaluation, treatment, and prevention of vitamin D deficiency: an Endocrine Society clinical practice guideline. JCEM. 2010; 96(7):1911-30. 71-Xyz-696886:12 URINALYSIS, W/ MICRO (51455) Comments: PATIENT WAS FASTINGPERFORMED BY: Z-good [place] [id number] Microscopic Examination See below: (Normal) Comments: Microscopic was indicated and was performed. Nitrite, Urine Negative (Normal) Urobilinogen,Semi-Qn 0.2 mg/dL (Normal) Range: 0.2-1.0 Bilirubin Negative (Normal) Occult Blood Negative (Normal) Ketones Negative (Normal) Glucose Negative (Normal) Protein 4+ (Abnormal) WBC Esterase Trace (Abnormal) Appearance Clear (Normal) Urine-Color Yellow (Normal) pH 6.0 (Normal) Range: 5.0-7.5 Specific [place] 1.015 (Normal) Range: 1.005-1.030 49-Qvg-681547:12 CBC W/AUTO DIFF WBC (14068) Comments: PATIENT WAS FASTINGPERFORMED BY: 1001 Menus LabCoInvenshure70 QuickGiftsblin [place] [id number] Immature Grans (Abs) 0.0 {x10E3/uL} (Normal) Range: [...] 3.77-5.28 WBC 6.2 {x10E3/uL} (Normal) Range: 3.4-10.8 30-Kap-639735:12 METABOLIC PANEL, COMPREHENSIVE Comments: PATIENT WAS FASTINGPERFORMED BY: LabCoOverlook Medical CenterSvynos5668 [facility] [id number] (66332) ALT (SGPT) 14 [iU]/L (Normal) Range: 0-32 [...] Glucose, Serum 154 mg/dL (Abnormal) Range: 65-99 98-Qrp-406041:12 LIPID PANEL (80993) Comments: PATIENT WAS FASTINGPERFORMED BY: [facility]xTerityLev[facility] [id number] LDL/HDL Ratio 0.7 {ratio_units} (Normal) Range: 0.0-3.2 Comments: LDL/HDL Ratio Men Women 1/2 Avg.Risk 1.0 1.5 Av g.Risk 3.6 3.2 2X Avg.Risk 6.2 5.0 3X Avg.Risk 8.0 6.1 LDL Cholesterol Calc 49 mg/dL (Normal) Range: 0-99 VLDL Cholesterol Cesar 14 mg/dL (Normal) Range: 5-40 HDL Cholesterol 75 mg/dL (Normal) Triglycerides 68 mg/dL (Normal) Range: 0-149 Cholesterol, Total 138 mg/dL (Normal) Range: 100-199 44-Yqc-470606:50 HgA1C , Office (05834) HgA1C , Office 6.7 % (Normal) Range: 4.6 - 7.1 67-Iqb-293601:36 VITAMIN B-12 (CYANOCOBALAMIN) Comments: PATIENT WAS FASTINGPERFORMED BY: Ganeselo.comBlue [facility] Hospital [id number] (89436) Vitamin B12 802 pg/mL (Normal) Range: 211-946 34-Qmo-089852:36 LIPID PANEL (01526) Comments: PATIENT WAS FASTINGPERFORMED BY: [facility]xTerityLev[facility] [id number] LDL/HDL Ratio 0.8 {ratio_units} (Normal) Range: 0.0-3.2 [...] Cholesterol, Total 161 mg/dL (Normal) Range: 100-199 50-Jlz-708317:36 LDH (LD) (LACTATE DEHYDROGENASE) Comments: PATIENT WAS FASTINGPERFORMED BY: [facility] Jjstgf9761 [facility] [id number] (76337) LDH 217 [iU]/L (Normal) Range: 119-226 47-Src-064797:36 CBC W/AUTO DIFF WBC (45174) Comments: PATIENT WAS FASTINGPERFORMED BY: [employer]HL[employer] Ixeogv8467 [facility] [id number] Immature Grans (Abs) 0.0 {x10E3/uL} (Normal) Range: [...] 3.77-5.28 WBC 10.6 {x10E3/uL} (Normal) Range: 3.4-10.8 47-Hio-926093:36 METABOLIC PANEL, COMPREHENSIVE Comments: PATIENT WAS FASTINGPERFORMED BY: LabCoOverlook Medical CenterRuowmj6219 [facility] [id number] (28979) ALT (SGPT) 15 [iU]/L (Normal) Range: 0-32 [...] Glucose, Serum 137 mg/dL (Abnormal) Range: 65-99 62-Svi-423006:36 TSH (34480) Comments: PATIENT WAS FASTINGPERFORMED BY: Sparkbuy6370 [facility] [id number] TSH 0.560 {uIU/mL} (Normal) Range: 0.450-4.500 :02 Renal function Panel (63704) Comments: PATIENT WAS FASTINGPERFORMED BY: Sparkbuy6370 [facility] [id number] Albumin, Serum 3.7 g/dL (Normal) Range: 3.5-4.8 [...] 137 mg/dL (Abnormal) Range: 65-99 :02 MAGNESIUM (64809) Comments: PATIENT WAS FASTINGPERFORMED BY: [facility]6370 [facility] [id number] Magnesium, Serum 2.2 mg/dL (Normal) Range: 1.6-2.3 :02 MICROALBUMIN: CREATININE RATIO Comments: PATIENT WAS FASTINGPERFORMED BY: [facility]Former[facility]6370 [facility] [id number] (86284) AND (95450) Microalb/Creat Ratio 2038.7 {mg/g_creat} (Abnormal) Range: 0.0-30.0 Microalbumin, Urine 1223.2 ug/mL (Normal) Comments: Results confirmed ondilution. Creatinine, Urine 60.0 mg/dL (Normal) :02 CBC WITH MANUAL DIFF Comments: PATIENT WAS FASTINGPERFORMED BY: [facility]6370 [facility] [id number] Information: [id number] CC:[id number] (01327) Immature Grans (Abs) 0.0 {x10E3/uL} (Normal) Range: [...] {x10E3/uL} (Normal) Range: 3.4-10.8 :02 HGB A1C (00697) Comments: PATIENT WAS FASTINGPERFORMED BY: [employer] Wuztbo7136 [facility] [id number] Hemoglobin A1c 6.4 % (Abnormal) Range: 4.8-5.6 Comments: . Pre-diabetes: 5.7 - 6.4 Diabetes: >6.4 Glycemic control for adults with diabetes: <7.0 :02 Lipid Panel (63136) Comments: PATIENT WAS FASTINGPERFORMED BY: [employer] Efiufb1728 [facility] [id number] LDL/HDL Ratio 1.1 {ratio_units} (Normal) Range: 0.0-3.2 [...] (Normal) Range: 100-199 :03 HgA1C , Office (68489) HgA1C , Office 6.1 % (Normal) Range: 4.6 - 7.1 :24 CBC W/AUTO DIFF WBC Comments: PATIENT WAS FASTINGPERFORMED BY: LabCoOverlook Medical CenterVzjjsm2774 [facility] [id number] Information: [id number] (92289) Immature Grans (Abs) 0.0 {x10E3/uL} (Normal) Range: [...] CREATININE RATIO Comments: PATIENT WAS FASTINGPERFORMED BY: LabCoOverlook Medical CenterEbdytp6521 [facility] [id number] (71317) AND (15308) Microalb/Creat Ratio 1223.8 {mg/g_creat} (Abnormal) Range: 0.0-30.0 Microalbumin, Urine 1012.1 ug/mL (Abnormal) Range: 0.0-17.0 Comments: Results confirmed ondilution. Creatinine, Urine 82.7 mg/dL (Normal) Range: 15.0-278.0 :24 METABOLIC PANEL, COMPREHENSIVE Comments: PATIENT WAS FASTINGPERFORMED BY: Contratan.do [facility] [id number] (10940) ALT (SGPT) 12 [iU]/L (Normal) Range: 0-32 [...] mg/dL (Abnormal) Range: 65-99 :24 LIPID PANEL (85350) Comments: PATIENT WAS FASTINGPERFORMED BY: [facility]TerityLev[facility] [id number] LDL/HDL Ratio 1.1 {ratio_units} (Normal) Range: 0.0-3.2 [...] Cholesterol, Total 150 mg/dL (Normal) Range: 100-199 73-Owj-11978:30 CBC W/Diff, Automated Comments: [facility] A[address]xc[address] [place], [address] Absolute Lymph 0.83 {X10_3/ul} (Normal) Range: 0.83-4.51 [...] (Normal) Range: 4.4-11.0 :30 Hemoglobin A1c Comments: [facility] Owgmwhkmcd[address] [place], [place], [address] HGB A1C 6.1 % (Normal) Range: 4.2-6.3 34-Ghu-43113:30 Magnesium Comments: [facility] Zfeceokctd39[address] [place], [place], [id number] MG 1.8 mg/dL (Normal) Range: 1.8-2.4 :30 Protein+Creatinine Ratio,Urine Comments: [facility] Xftltg[address]jf[address] [place], [place], [id number] PROT:CRE RATIO 2121 {mg/g_CRE} (Abnormal) Range: 0-200 PROTEIN,UR.RAN. 164.2 mg/dL (Abnormal) UR CREAT 77.40 mg/dL (Normal) :30 Renal Profile Comments: [facility] Grvttzniby79[address] [place], [place], [id number] CO2 27.0 mmol/L (Normal) Range: 21.0-32.0 CL [...] 126 mg/dLsuggests DIABETES MELLITUS per A.D.A. criteria. 11-Yvf-20728:00 24 HR UR Creatinine Clearance Comments: [facility] Cnvstbq[address] [place], [place], [address] CREAT CLEARANCE 24 ml/min (Abnormal) Range: 100-200 URINE CREAT 20.6 mg/dL (Normal) EST GFR - AA 38 mL/min (Abnormal) Comments: GFR Calc EST GFR 31 mL/min (Abnormal) Comments: Non- GFR Calc SERUM CREAT 1.7 mg/dL (Abnormal) Range: 0.6-1.0 UR TOTAL VOLUME 2800 mL (Normal) UR COLLECT TIME 24.0 {HOURS} (Normal) 76-Ryx-71819:00 Protein, Urine 24HR Comments: [facility] Nuiekfvhpx[address] [place], [place], [id number] 24hr UR PROTEIN 1178.8 {mg/24HR} (Abnormal) URINE PROTEIN 42.1 mg/dL (Abnormal) UR TOTAL VOLUME 2800 mL (Normal) UR COLLECT TIME 24.0 {HOURS} (Normal) 2-Zxk-795008:29 Metabolic Panel, Basic Comments: PATIENT NOT FASTINGPERFORMED BY: [facility]CoOver[facility] CenterQkkndq2723 [facility] [id number] Information: [id number] (14009) Calcium, Serum 9.3 mg/dL (Normal) Range: 8.7-10.3 [...] Basic Comments: tuesday; PATIENT NOT FASTINGPERFORMED BY: [facility] Barafon [facility] [id number] Information: [id number] (22761) Calcium, Serum 9.0 mg/dL (Normal) Range: 8.7-10.3 [...] Glucose, Serum 149 mg/dL (Abnormal) Range: 65-99 11-Klz-800635:32 HgA1C , Office (10378) HgA1C , Office 6.2 % (Normal) Range: 4.6 - 7.1 :31 Rapid Strep Test, Office (54557) Comments: neg Rapid Strep Test, Office Negative (Normal) :06 THROAT CULTURE (44764) Comments: PATIENT NOT FASTINGPERFORMED BY: Course HeroRipley County Memorial HospitalCouipj9809 [facility] [id number] Information: [id number] Result 1 RRF (Normal) Comments: Routine respiratory luis Upper Respiratory Culture Final report (Normal) :52 TSH (16128) Comments: PATIENT WAS FASTINGPERFORMED BY: Course HeroFormerly [facility]6370 [facility] [id number] TSH 2.190 {uIU/mL} (Normal) Range: 0.450-4.500 :52 Vitamin D Hydroxy (94776) Comments: PATIENT WAS FASTINGPERFORMED BY: [facility]Co[facility] CenterShecia1149 [facility] [id number] Vitamin D, 25-Hydroxy 43.8 ng/mL (Normal) Range: 30.0-100.0 Comments: Vitamin D deficiency has been defined by the [place] of[place] and an Endocrine Society practice guideline as alevel of serum 25-OH vitamin D less than 20 ng/mL (1,2).The Endocrine Society went on to further define vitamin Dinsufficiency as a level between 21 and 29 ng/mL (2).1. IOM ([place] of Medicine). 2010. Dietary reference intakes for calcium and D. [place]: The National Academies Press.2. Mira MF, Rosette [place], Tommy SWAIN, et al. Evaluation, treatment, and prevention of vitamin D deficiency: an Endocrine Society clinical practice guideline. JCEM. 2010; 96(7):1911-30. :52 LIPID PANEL (54686) Comments: PATIENT WAS FASTINGPERFORMED BY: [facility]CoOver[facility] CenterWdylyw7946 [facility] [id number] LDL/HDL Ratio 1.3 {ratio_units} (Normal) Range: 0.0-3.2 [...] diff Comments: PATIENT WAS FASTINGPERFORMED BY: [facility]6370 [facility] [id number] Information: [id number] (92740) Immature Grans (Abs) 0.0 {x10E3/uL} (Normal) Range: [...] PANEL, COMPREHENSIVE Comments: PATIENT WAS FASTINGPERFORMED BY: [facility] CenterCoOverlook Medical CenterKrwudy4909 [facility] [id number] (06847) ALT (SGPT) 19 [iU]/L (Normal) Range: 0-32 [...] Glucose, Serum 127 mg/dL (Abnormal) Range: 65-99 6-Wox-839083:08 HgA1C , Office (30851) HgA1C , Office 6.4 % (Normal) Range: 4.6 - 7.1 6-Cfu-364188:00 Creatinine Clearance Comments: PATIENT NOT FASTINGPERFORMED BY: [facility] Yzbgvn1833 [facility] [id number] Information: [id number] S TART Creatinine Clearance 33 mL/min (Abnormal) Range: 88-128 Comments: The above range is based on 1.73 square meter average body surfacearea. Creatinine, Ur 24hr 642.0 {mg/24_hr} (Abnormal) Range: 800.0-1800.0 Creatinine, Urine 34.7 mg/dL (Normal) Range: 15.0-278.0 eGFR If Africn Am 43 mL/min/1.73 (Abnormal) eGFR If NonAfricn Am 37 mL/min/1.73 (Abnormal) Creatinine, Serum 1.37 mg/dL (Abnormal) Range: 0.57-1.00 6-Jvy-867529:00 Protein Total, Qn, 24-Hr Comments: PATIENT NOT FASTINGPERFORMED BY: [facility] Rfiqbv5552 [place] [facility] [id number] Urine Prot,24hr calculated 1309.8 {mg/24_hr} (Abnormal) Range: 30.0-150.0 Protein,Total,Urine 70.8 mg/dL (Abnormal) Range: 0.0-15.0 :01 CBC W/Diff, Automated Comments: Test performed at:[facility] Zhbzqfiluo5[address] SainiS[address] [place], [place] [address] Absolute Neut 3.1 {X10_3/uL} (Normal) Range: 2.0-7.7 [...] Range: 4.4-11.0 :01 Magnesium Comments: Test performed at:[facility] [address] [place] [address]709 MG 2.0 mg/dL (Normal) Range: 1.8-2.4 :01 Protein+Creatinine Ratio,Urine Comments: Test performed at:[facility] J[address] [place] [address] PROT:CRE RATIO 2232 {mg/g_CRE} (Abnormal) Range: 0-200 PROTEIN,UR.RAN. 160.3 mg/dL (Abnormal) UR CREAT 71.8 mg/dL (Normal) :01 Renal Profile Comments: Test performed at:[facility] O[address] [place] [address] CO2 32.0 mmol/L (Normal) Range: 21.0-32.0 CL [...] mg/dL (Normal) Range: 70-110 :08 LIPID PANEL (30577) Comments: PATIENT WAS FASTINGPERFORMED BY: [facility]CoOver[facility] Medical CenterYhetmu1297 [facility] [id number] LDL/HDL Ratio 1.0 {ratio_units} (Normal) Range: 0.0-3.2 [...] Cholesterol, Total 149 mg/dL (Normal) Range: 100-199 37-Zmb-74578:08 METABOLIC PANEL, Comments: PATIENT WAS FASTINGPERFORMED BY: LabCoOver[facility] Medical CenterIobhas3071 [facility] [id number] Information: [id number] COMPREHENSIVE (87312) ALT (SGPT) 29 [iU]/L (Normal) Range: 0-32 [...] (Abnormal) Range: 65-99 :59 HgA1C , Office (17083) HgA1C , Office 6.5 % (Normal) Range: 4.6 - 7.1 :54 CBC W/AUTO DIFF WBC Comments: PATIENT WAS FASTINGPERFORMED BY: [facility]6370 [facility] [id number] Information: [id number] (87789) Immature Grans (Abs) 0.0 {x10E3/uL} (Normal) Range: [...] COMPREHENSIVE Comments: PATIENT WAS FASTINGPERFORMED BY: EVE Padloc70 [facility] [id number]; non- emergent till apt (71911) ALT (SGPT) 13 [iU]/L (Normal) Range: 0-32 [...] mg/dL (Abnormal) Range: 65-99 :54 LIPID PANEL (08188) Comments: PATIENT WAS FASTINGPERFORMED BY: [facility]6370 [facility] [id number] LDL/HDL Ratio 1.1 {ratio_units} (Normal) Range: 0.0-3.2 [...] (Normal) Range: 100-199 :29 HgA1C , Office (61754) HgA1C , Office 6.6 % (Normal) Range: 4.6 - 7.1 :12 CBC W/Diff, Automated Comments: Test performed at:[facility] Kzggmowmuk[address] [place] [address] ; handled by Dr. Santana Absolute Lymph [...] Range: 4.4-11.0 :12 Magnesium Comments: Test performed at:[facility] [address] [place] [address]91 MG 2.0 mg/dL (Normal) Range: 1.8-2.4 :12 Microalb:Creat Ratio,Random UR Comments: Test performed at:[facility] Dcurerjd[address] [place] [address] ; Dr. Angelo LING:CREAT 1483.0 {mg/g_CRE} (Abnormal) MICROALBUMIN,UR 918.0 mg/L (Normal) UR CREAT 61.9 mg/dL (Normal) :12 Renal Profile Comments: Test performed at:[facility] Eqhqaufxcv9[address] [place] [address] CO2 29.0 mmol/L (Normal) Range: 21.0-32.0 CL [...] 126 mg/dLsuggests DIABETES MELLITUS per A.D.A. criteria. 80-Lzj-933139:20 LIPID PANEL (92398) Comments: PATIENT WAS FASTINGPERFORMED BY: Course HeroFormerly [facility]6370 [facility] [id number] LDL/HDL Ratio 1.0 {ratio_units} (Normal) Range: 0.0-3.2 [...] Cholesterol, Total 151 mg/dL (Normal) Range: 100-199 27-Ywo-212609:20 METABOLIC PANEL, Comments: PATIENT WAS FASTINGPERFORMED BY: ZappyLabOverlook Medical CenterNljddk4630 [facility] [id number] Information: [id number] COMPREHENSIVE (06908) ALT (SGPT) 16 [iU]/L (Normal) Range: 0-32 [...] Glucose, Serum 148 mg/dL (Abnormal) Range: 65-99 99-Ftw-500153:21 CREATININE CLEARANCE Comments: PATIENT WAS FASTINGPERFORMED BY: [employer] [facility] [id number] Information: [id number] START 04/02/14@9AM FINISH 04/03/14 6:00 AM (49497) Creatinine Clearance 42 mL/min (Abnormal) Range: 88-128 Comments: The above range is based on 1.73 square meter average body surfacearea. Creatinine, Ur 24hr 812.3 {mg/24_hr} (Normal) Range: 800.0-1800.0 Creatinine, Urine 28.5 mg/dL (Normal) Range: 15.0-278.0 eGFR If Africn Am 45 mL/min/1.73 (Abnormal) eGFR If NonAfricn Am 39 mL/min/1.73 (Abnormal) Creatinine, Serum 1.33 mg/dL (Abnormal) Range: 0.57-1.00 25-Jtg-910653:21 Total Protein,24 Hour Urine Comments: PATIENT WAS FASTINGPERFORMED BY: Digital Ally70 [facility] [id number] (84897) Prot,24hr calculated 1559.0 {mg/24_hr} (Abnormal) Range: 30.0-150.0 Protein,Total,Urine 54.7 mg/dL (Abnormal) Range: 0.0-15.0 :57 LIPID PANEL (90168) Comments: PATIENT WAS FASTINGPERFORMED BY: [employer] [facility] [id number] LDL/HDL Ratio 1.1 {ratio_units} (Normal) Range: 0.0-3.2 [...] MANUAL DIFF Comments: PATIENT WAS FASTINGPERFORMED BY: [facility]CoOverlook Medical CenterHypkzy6521 [facility] [id number] Information: [id number] (39538) Immature Grans (Abs) 0.0 {x10E3/uL} (Normal) Range: [...] PANEL, COMPREHENSIVE Comments: PATIENT WAS FASTINGPERFORMED BY: [employer] [facility] [id number] (99181) ALT (SGPT) 10 [iU]/L (Normal) Range: 0-32 [...] 0 Comments: Result Units: mg/dL AdultPerformed at: [facility] [address] [place], [place] [address]Yzs Director: Yousuf Bernardo PhD, Phone: [phone] C4 37 (Abnormal) Range: 9-36 0 [...] 75.6 mg/dL (Abnormal) CREU 49.3 mg/dL (Normal) 92-Obj-24443:21 CBC WITH MANUAL DIFF Comments: PATIENT WAS FASTINGPERFORMED BY: [facility]6370 [facility] [id number] Information: [id number] (20560) Immature Grans (Abs) 0.0 {x10E3/uL} (Normal) Range: [...] 3.77-5.28 WBC 4.5 {x10E3/uL} (Normal) Range: 3.4-10.8 73-Yrb-27689:21 METABOLIC PANEL, COMPREHENSIVE Comments: PATIENT WAS FASTINGPERFORMED BY: LabCoOverlook Medical CenterDhdmwb7011 [facility] [id number] (28494) ALT (SGPT) 16 [iU]/L (Normal) Range: 0-32 [...] CREATININE CLEARANCE Comments: PATIENT NOT FASTINGPERFORMED BY: [employer]HL[employer] Ahgdts4684 [facility] [id number] Information: [id number] START 10/30/13@8AM F INISH 10/31/13@8AM 2650ML (86821) Creatinine Clearance 44 mL/min (Abnormal) Range: 88-128 [...] Hour Urine Comments: PATIENT NOT FASTINGPERFORMED BY: Digital Ally70 [facility] [id number] (71216) Prot,24hr calculated 3458.3 {mg/24_hr} (Abnormal) Range: 30.0-150.0 Protein,Total,Urine 130.5 mg/dL (Abnormal) Range: 0.0-15.0 21-Lhw-629223:31 HgA1C , Office (59784) HgA1C , Office 6.4 % (Normal) Range: 4.6 - 7.1 01-Fhj-670514:27 Microscopic Examination Comments: PATIENT WAS FASTINGPERFORMED BY: ZappyLabZuni HospitalNqhwup0656 [facility] [id number] Bacteria Few (Normal) Mucus Threads Present (Normal) Epithelial Cells (non renal) 0-10 {/hpf} (Normal) Range: 0 - 10 RBC 3-10 {/hpf} (Abnormal) Range: 0 - 2 WBC 6-10 {/hpf} (Abnormal) Range: 0 - 5 :32 LIPID PANEL (76438) Comments: PATIENT WAS FASTINGPERFORMED BY: [facility] Barafon [facility] [id number] LDL/HDL Ratio 1.0 {ratio_units} (Normal) Range: 0.0-3.2 [...] CREATININE RATIO Comments: PATIENT WAS FASTINGPERFORMED BY: ZappyLabOverlook Medical CenterAkxmzf8178 [facility] [id number] (82092) AND (66158) Microalb/Creat Ratio 1998.9 {mg/g_creat} (Abnormal) Range: 0.0-30.0 Creatinine, Urine 73.4 mg/dL (Normal) Range: 15.0-278.0 Microalbumin, Urine 1467.2 ug/mL (Abnormal) Range: 0.0-17.0 :32 URINALYSIS, W/ MICRO (07963) Comments: PATIENT WAS FASTINGPERFORMED BY: [facility]6370 [facility] [id number] Microscopic Examination See below: (Normal) Comments: Microscopic was indicated and was performed. Nitrite, Urine Negative (Normal) Urobilinogen,Semi-Qn 0.2 mg/dL (Normal) Range: 0.0-1.9 Bilirubin Negative (Normal) Occult Blood Trace (Abnormal) Ketones Negative (Normal) Glucose Negative (Normal) Protein 3+ (Abnormal) WBC Esterase Trace (Abnormal) Appearance Clear (Normal) Urine-Color Yellow (Normal) pH 6.5 (Normal) Range: 5.0-7.5 Specific [place] 1.015 (Normal) Range: 1.005-1.030 62-Fkb-45730:32 CBC WITH MANUAL DIFF Comments: PATIENT WAS FASTINGPERFORMED BY: [facility]CoOverlook Medical CenterYmsffc2159 [facility] [id number] Information: [id number] (59361) Immature Grans (Abs) 0.0 {x10E3/uL} (Normal) Range: [...] PANEL, COMPREHENSIVE Comments: PATIENT WAS FASTINGPERFORMED BY: Digital Ally70 [facility] [id number] (79225) ALT (SGPT) 16 [iU]/L (Normal) Range: 0-32 [...] B-12 (CYANOCOBALAMIN) Comments: PATIENT WAS FASTINGPERFORMED BY: Spark[employer]6370 [facility] [id number] (35715) Vitamin B12 >1999 pg/mL (Abnormal) Range: 211-946 75-Rvg-380774:01 HgA1C , Office (00281) HgA1C , Office 6.4 % (Normal) Range: 4.6 - 7.1 :37 METABOLIC PANEL, COMPREHENSIVE Comments: PATIENT WAS FASTINGPERFORMED BY: Digital Ally70 [facility] [id number] (97193) ALT (SGPT) 12 [iU]/L (Normal) Range: 0-32 [...] (Abnormal) Range: 65-99 :37 Vitamin D Hydroxy (35855) Comments: PATIENT WAS FASTINGPERFORMED BY: Digital Ally70 [facility] [id number] Vitamin D, 25-Hydroxy 47.4 ng/mL (Normal) Range: 30.0-100.0 Comments: Vitamin D deficiency has been defined by the [place] of[place]icine and an Endocrine Society practice guideline as alevel of serum 25-OH vitamin D less than 20 ng/mL (1,2).The Endocrine Society went on to further define vitamin Dinsufficiency as a level between 21 and 29 ng/mL (2).1. IOM ([place] of [place]). 2010. Dietary reference intakes for calcium and D. [place]: The National AcademLightbox Press.2. Mira MF, Rosette [place], Tommy SWAIN, et al. Evaluation, treatment, and prevention of vitamin D deficiency: an Endocrine Society clinical practice guideline. JCEM. 2010; 96(7):1911-30. :37 LIPID PANEL (91507) Comments: PATIENT WAS FASTINGPERFORMED BY: Sparkbuy6370 [facility] [id number] LDL/HDL Ratio 1.2 {ratio_units} (Normal) Range: 0.0-3.2 [...] MANUAL DIFF Comments: PATIENT WAS FASTINGPERFORMED BY: Spark[facility]6370 [facility] [id number] Information: [id number] (55494) Immature Grans (Abs) 0.0 {x10E3/uL} (Normal) Range: [...] Qn, 24-Hr Comments: PATIENT NOT FASTINGPERFORMED BY: [employer] Asrypl2258 [facility] [id number] Information: ADD [id number] AND DRAW FEE 99 6660 VOLUME 2600 164LBS 5' '3 Urine Prot,24hr calculated 920.4 {mg/24_hr} Range: 30.0-150.0 (Abnormal) Protein,Total,Urine 35.4 mg/dL Range: 0.0-15.0 (Abnormal) : Written Authorization WAR (Normal) Comments: PATIENT NOT FASTINGPERFORMED BY: [facility] Jalyoa2544 [facility] [id number] Comments: Written Authorization Received.Authorization received from Chiqui BRICEÑO LPN [id number] by Marleen Sharma :52 Metabolic Panel, Basic Comments: PATIENT NOT FASTINGPERFORMED BY: [employer] Oyyfbk7710 [facility] [id number] Information: ADD [id number] AND DRAW FEE 99 6660 VOLUME 2600 164LBS 5' '3 (10860) Calcium, Serum 9.7 mg/dL (Normal) Range: 8.6-10.2 [...] mg/dL (Abnormal) Range: 65-99 :52 CREATININE CLEARANCE (15407) Comments: PATIENT NOT FASTINGPERFORMED BY: [facility] Tdcygq2184 [facility] [id number] Creatinine Clearance 46 mL/min (Abnormal) Range: 88-128 Comments: The above range is based on 1.73 square meter average body surfacearea. Creatinine, Ur 24hr 899.6 {mg/24_hr} (Normal) Range: 800.0-1800.0 Creatinine, Urine 34.6 mg/dL (Normal) Range: 15.0-278.0 :52 24 hour urine for Protein Comments: PATIENT NOT FASTINGPERFORMED BY: [employer] Ufuuzk9781 [facility] [id number] (35296) Microalb/Creat Ratio 695.4 {mg/g_creat} (Abnormal) Range: 0.0-30.0 Microalbumin, Urine 240.6 ug/mL (Abnormal) Range: 0.0-17.0 3-Rbb-786420:13 HgA1C , Office (42393) HgA1C , Office 6.3 % (Normal) Range: 4.6 - 7.1 :01 Blood Glucose , Office (94608) Blood Glucose , Office 162 (Normal) 71-Ask-698922:02 Microscopic Examination Comments: PATIENT NOT FASTINGPERFORMED BY: [facility] Ozulnk6747 Willoughby RoadDublTwin Lakes Regional Medical Center [id number] Bacteria Few (Normal) Mucus Threads Present (Normal) [...] Hebert M.D.October 19, 2012 at 2:42:14 PM [id number] Signed GP/GP If you are the referring physician and would like to consult [facility] theradiologist who provided this interpretation, please contact Yasmany Pond at [phone]. If this radiologist is unavailable, youwill be directed to another radiologist to assist. If y ou are a patient with a question regarding this report, pleasecontactyour referring physician directly. Professional Interpretation Provided By: CP[employer], Phone , These documents contain legally protected [...] 10/19/12 1444 Sign by: Misael Hebert MD 33-Npu-692694:59 TSH (47674) Comments: PATIENT WAS FASTINGPERFORMED BY: [facility]6370 [facility] [id number] TSH 1.230 {uIU/mL} (Normal) Range: 0.450-4.500 :59 LIPID PANEL (14700) Comments: PATIENT WAS FASTINGPERFORMED BY: [facility]6370 [facility] [id number] LDL/HDL Ratio 0.5 {ratio_units} (Normal) Range: 0.0-3.2 LDL Cholesterol Calc 47 mg/dL (Normal) Range: 0-99 Cholesterol, Total 149 mg/dL (Normal) Range: 100-199 HDL Cholesterol 91 mg/dL (Normal) Comments: According to ATP-III Guidelines, HDL-C >59 mg/dL is considered anegative risk factor for CHD. Triglycerides 57 mg/dL (Normal) Range: 0-149 VLDL Cholesterol Cesar 11 mg/dL (Normal) Range: 5-40 00-Oho-049525:02 URINALYSIS, W/ MICRO Comments: PATIENT NOT FASTINGPERFORMED BY: [facility]6370 [facility] [id number] Information: [id number] (58746) Microscopic Examination See below: (Normal) Nitrite, Urine Negative (Normal) Bilirubin Negative (Normal) Urobilinogen,Semi-Qn 0.2 mg/dL (Normal) Range: 0.0-1.9 Occult Blood Negative (Normal) Ketones Negative (Normal) Glucose Negative (Normal) Protein 3+ (Abnormal) WBC Esterase Negative (Normal) Appearance Clear (Normal) Urine-Color Yellow (Normal) pH 5.5 (Normal) Range: 5.0-7.5 Specific [place] 1.015 (Normal) Range: 1.005-1.030 :59 CBC WITH MANUAL DIFF Comments: PATIENT WAS FASTINGPERFORMED BY: [facility]6370 [facility] [id number] Information: [id number] (62283) Immature Grans (Abs) 0.0 {x10E3/uL} (Normal) Range: [...] 3.77-5.28 WBC 4.8 {x10E3/uL} (Normal) Range: 3.4-10.8 59-Zco-444032:59 METABOLIC PANEL, COMPREHENSIVE Comments: PATIENT WAS FASTINGPERFORMED BY: LabCoOverlook Medical CenterSatuiu2650 [facility] [id number] (98950) ALT (SGPT) 14 [iU]/L (Normal) Range: 0-32 [...] Glucose, Serum 104 mg/dL (Abnormal) Range: 65-99 5-Kug-691148:37 HgA1C , Office (22527) HgA1C , Office 6.0 % (Normal) Range: 4.6 - 7.1 5-Iti-878987:31 CRE CREAT 1.3 mg/dL (Abnormal) Range: 0.6-1.0 [...] Galan M.D.August 09, 2012 at 2:38:03 PM [id number] Signed PV/PV If you are the referring physician and would like to consult with theradiologist who provided this interpretation, please contact Donna Burnett M.D. at [phone]. If this radiologist is unavailable, youwillbe directed to another radiologist to assist. If you are a patient with a question regarding this report, pleasecontactyour referring physician evelyne carreractly. Professional Interpretation Provided By: [employer], Phone , These documents contain legally protected [...] 08/09/12 1441 Sign by: Donna Martin MD 32-Qmt-308335:31 CBC with manual diff Comments: PATIENT NOT FASTINGPERFORMED BY: [facility] Qcjhhq5603 [facility] [id number] Information: [id number] (35704) Immature Grans (Abs) 0.0 {x10E3/uL} (Normal) Range: [...] 3.77-5.28 WBC 3.2 {x10E3/uL} (Abnormal) Range: 4.0-10.5 96-Rjb-073090:31 Metabolic Panel, Comprehensive Comments: PATIENT NOT FASTINGPERFORMED BY: LabCoOverlook Medical CenterLjzlek6542 [facility] [id number] (35330) ALT (SGPT) 19 [iU]/L (Normal) Range: 0-32 [...] mg/dL (Abnormal) Range: 65-99 :31 LIPID PANEL (88201) Comments: PATIENT WAS FASTINGPERFORMED BY: [employer] ([place]) Colin6370 [facility] [id number] LDL/HDL Ratio 0.8 {ratio_units} (Normal) Range: 0.0-3.2 [...] MANUAL DIFF Comments: PATIENT WAS FASTINGPERFORMED BY: LabSounder6370 [facility] [id number] Information: [id number] (04538) Immature Grans (Abs) 0.0 {x10E3/uL} (Normal) Range: [...] PANEL, COMPREHENSIVE Comments: PATIENT WAS FASTINGPERFORMED BY: LabCoOverlook Medical CenterRkwszg1424 [facility] [id number] (59940) ALT (SGPT) 22 [iU]/L (Normal) Range: 0-32 [...] (Abnormal) Range: 65-99 :45 HgA1C , Office (70588) HgA1C , Office 6.1 % (Normal) Range: 4.6 - 7.1 43-Ags-723027:16 CRE CREAT 1.1 mg/dL (Abnormal) Range: 0.6-1.0 22-Dfv-55599:00 BRAIN W/WO CONTRAST Radiology Report See Note [...] Galan M.D.February 02, 2012 at 5:10:18 PM [id number] Signed PV/PV If you are the referring physician and w sarahild like to consult with theradiologist who provided this interpretation, please contact Donna Burnett M.D. at [phone]. If this radiologist is unavailable, youwillbe directed to another radiol ogist to assist. If you are a patient with a question regarding this report, pleasecontactyour referring physician directly. Professional Interpretation Provided By: CPower, Phone ,Fa x [phone] These documents contain legally protected and confidential [...] 1714 S ign by: Donna Martin MD 89-Zkz-254759:16 DEXA BONE DENSITY STUDY (HP) Radiology Report [...] Coronel M.D.January 20, 2012 at 2:43:46 PM [id number] Signed KERA/KERA If you ar e the [...] on 01/20/121446 Sign by: David Coronel MD 07-Eft-827580:15 BILAT SCRN DIGITAL & CAD Radiology Report [...] Coronel M.D.January 20, 2012 at 1:20:11 PM [phone] Signed KERA/KERA If you are the referring physician and would like to consult with theradiologist who provided this interpretation, please contact Yasmany Parnell at . If this radiologist is unavailable,youwill be directed to another radiologist to assist. If you are a patient with a question regarding this report, pleasecontactyour referring physician directly. Professional Interpretation Provided By: [facility], Phone , These documents contain legally protected [...] 01/20/12 1324 Sign by: David Coronel MD 6-Mjq-480423:56 PELVIC (NON ) Radiology Report See Note [...] Vuong M.D.January 10, 2012 at 8:39:09 PM [id number] Signed JL/JOHNNY If you are the referring physician and would like to consult with theradiologist who provided this inte rpretation, please contact Radha Vuong M.D. at [phone]. If this radiologist is unavailable, you will bedirected to another radiologist to assist. If you are a patient with a question regarding this r eport, pleasecontactyour referring physician directly. Professional Interpretation Provided By: CPower, Phone , PROCEDURE: ULTRASOUND OF THE FEMALE [...] Vuong M.D.January 10, 2012 at 8:40:07 PM [phone] Signed JL/JL If you are the referring physician and would like to consult with theradiologist who provided this interpretation, please contact Radha Vuong M.D. at [phone]. If this radiologist is unavailable, you will bedirected to another radiologist to assist. If you are a patient with a question regarding this report, pleasecontactyour referring ph ysician directly. Professional Interpretation Provided By: CPower, Phone , These documents contain legally protected [...] RATIO Comments: PATIENT WAS FASTINGPERFORMED BY: [facility] Rrtxsb5563 [facility] [id number] (10206) AND (57276) Microalb/Creat Ratio 829.4 {mg/g_creat} (Abnormal) Range: 0.0-30.0 Microalbumin, Urine 437.1 ug/mL (Abnormal) Range: 0.0-17.0 Creatinine, Urine 52.7 mg/dL (Normal) Range: 15.0-278.0 :35 CBC WITH MANUAL DIFF Comments: PATIENT WAS FASTINGPERFORMED BY: [facility] Ldnfwd7067 [facility] [id number] Information: [id number] (63982) Immature Grans (Abs) 0.0 {x10E3/uL} (Normal) Range: [...] 3.77-5.28 WBC 3.7 {x10E3/uL} (Abnormal) Range: 4.0-10.5 65-Cck-31577:35 METABOLIC PANEL, COMPREHENSIVE Comments: PATIENT WAS FASTINGPERFORMED BY: LabCoOverlook Medical CenterPjfbkx3056 [facility] [id number] (26639) ALT (SGPT) 15 [iU]/L (Normal) Range: 0-32 [...] mg/dL (Abnormal) Range: 65-99 :35 LIPID PANEL (01284) Comments: PATIENT WAS FASTINGPERFORMED BY: ZappyLabOverlook Medical CenterHvhikl6813 [facility] [id number] LDL/HDL Ratio 0.9 {ratio_units} (Normal) Range: 0.0-3.2 LDL Cholesterol Calc 72 mg/dL (Normal) Range: 0-99 HDL Cholesterol 83 mg/dL (Normal) Comments: According to ATP-III Guidelines, HDL-C >59 mg/dL is considered anegative risk factor for CHD. VLDL Cholesterol Cesar 18 mg/dL (Normal) Range: 5-40 Triglycerides 90 mg/dL (Normal) Range: 0-149 Cholesterol, Total 173 mg/dL (Normal) Range: 100-199 :15 HgA1C , Office (38646) HgA1C , Office 6.2 % (Normal) Range: 4.6 - 7.1 :30 CBC WITH MANUAL DIFF Comments: PATIENT WAS FASTINGPERFORMED BY: ZappyLabOverlook Medical CenterUidfme0416 [facility] [id number] Information: [id number] (28836) Immature Grans (Abs) 0.0 {x10E3/uL} (Normal) Range: [...] 3.77-5.28 WBC 4.2 {x10E3/uL} (Normal) Range: 4.0-10.5 65-Eyg-52744:30 METABOLIC PANEL, COMPREHENSIVE Comments: PATIENT WAS FASTINGPERFORMED BY: LabCoOverlook Medical CenterHdfemv0611 [facility] [id number] (93254) ALT (SGPT) 19 [iU]/L (Normal) Range: 0-40 [...] mg/dL (Abnormal) Range: 65-99 :30 LIPID PANEL (71664) Comments: PATIENT WAS FASTINGPERFORMED BY: LabCoOverlook Medical CenterEddwht3484 [facility] [id number] LDL/HDL Ratio 0.9 {ratio_units} (Normal) Range: 0.0-3.2 [...] 100-199 Comments: Please note reference interval change 74-Zmc-156250:48 Rapid Flu (98387 x 2) Influenza A Ag negative (Normal) [...] redmond M.D.November 05, 2011 at 3:25:08 PM [id number] Signed GP/GP If you are the referring physician and would like to consult with theradiologist who provided this interpretation, please contact Yasmany Pond at [phone]. If this radiologist is unavailable, youwill be directed to another radiologist to assist. If you are a patient with a question regarding this report, ple asecontactyour referring physician directly. Professional Interpretation Provided By: CPower, Phone , These documents contain legally protected [...] redmond M.D.November 05, 2011 at 3:25:08 PM [phone] Signed GP/GP If you are the referring physician and would like to consult with theradiologist who provided this interpretation, please contact Yasmany Pond at [phone]. If this radiologist is unavailable, youwill be directed to another radiologist to assist. If you are a patient with a question regarding this report, ple asecontactyour referring physician directly. Professional Interpretation Provided By: CPower, Phone , These documents contain legally protected [...] 11/05/11 1552 Sign by: Misael Hebert MD 25-Wqs-072703:20 METABOLIC PANEL, Comments: PATIENT WAS FASTINGPERFORMED BY: LabCoOverlook Medical CenterVpzxvp8318 [facility] [id number] Information: [id number],2ND ORDER NO DRAW F EE COMPREHENSIVE (59016) ALT (SGPT) 31 [iU]/L (Normal) Range: 0-40 [...] Glucose, Serum 155 mg/dL (Abnormal) Range: 65-99 09-Vrp-12803:49 Creatinine Clearance Comments: PATIENT WAS FASTINGPERFORMED BY: EVE [facility] Mdledb4317 [facility] [id number] Information: 10/30@6AM 10/31@730AM Creatinine Clearance 58 mL/min [...] 24-Hr Comments: PATIENT WAS FASTINGPERFORMED BY: [facility] Pqzuso8197 [address] [place] [id number] Urine Prot,24hr calculated 1023.8 {mg/24_hr} (Abnormal) Range: 30.0-150.0 Protein,Total,Urine 52.5 mg/dL (Abnormal) Range: 0.0-15.0 :04 HgA1C , Office (41955) HgA1C , Office 6.1 % (Normal) Range: [...] regarding this repor t, please call our 94B4cdkyebj line @ Dictated on 07/27/11 1040 by GAYE PEREZ MD RTranscribed on 07/28/11 122 by ITS IMPORTSign by GAYE PEREZ MD on 07/28/115 Sign by: GAYE PEREZ MD 67-Fdq-72500:54 Vitamin D Hydroxy (22117) Comments: PATIENT WAS FASTINGPERFORMED BY: LabCoOverlook Medical CenterMbepxc7619 [facility] [id number] Vitamin D, 25-Hydroxy 48.8 ng/mL (Normal) Range: 30.0-100.0 Comments: Vitamin D deficiency has been defined by the [place] of[place] and an Endocrine Society practice guideline as alevel of serum 25-OH vitamin D less than 20 ng/mL (1,2).The Endocrine Society went on to further define vitamin Dinsufficiency as a level between 21 and 29 ng/mL (2).1. IOM ([place] of Medicine). 2010. Dietary reference intakes for calcium and D. [place]: The National Academies Press.2. Mira MF, Rosette LOPEZ, Tommy SWAIN, et al. Evaluation, treatment, and prevention of vitamin D deficiency: an Endocrine Society clinical practice guideline. JCEM. 2010; 96(7):1911-30. :54 LIPID PANEL (87369) Comments: PATIENT WAS FASTINGPERFORMED BY: 1001 Menus LabNabto70 [place] [facility] [id number] LDL/HDL Ratio 1.0 {ratio_units} (Normal) Range: 0.0-3.2 [...] MANUAL DIFF Comments: PATIENT WAS FASTINGPERFORMED BY: LabCoBitbondZkhexq5215 [facility] [id number] Information: ADD [id number] AND DRAW FEE 99 4186 (38822) Immature Grans (Abs) 0.0 {x10E3/uL} (Normal) Range: [...] 3.77-5.28 WBC 4.3 {x10E3/uL} (Normal) Range: 4.0-10.5 74-Mew-12807:54 METABOLIC PANEL, COMPREHENSIVE Comments: PATIENT WAS FASTINGPERFORMED BY: LabCoOverlook Medical CenterBuwsqd6252 [facility] [id number] (90926) ALT (SGPT) 48 [iU]/L (Abnormal) Range: 0-40 [...] (Abnormal) Range: 65-99 :18 HgA1C , Office (45146) HgA1C , Office 6.1 % (Normal) Range: 4.6 - 7.1 :18 Blood Glucose , Office (09583) Blood Glucose , Office 103 (Normal) 77-Czs-99691:00 ABDOMEN WITH AND W/O CONTRAST Radiology Report [...] radiologist regarding this report, please call our 80M1zpulnzd line @ Dictated on 03/18/11 1715 by Jennie Pugh MDieTranscribed on 03/22/11 1401 by ITS IMPORTSign by Jeanette Hill MD on 03/22/11 1402 Sign by: Jeanette Pugh MD 75-Idx-103166:29 SERUM CRE & GFR CREAT,SERUM 1.1 mg/dL (Abnormal) Range: 0.6-1.0 71-Wvm-26222:00 BRAIN W/WO CONTRAST Radiology Report See Note [...] seen in the right frontal white matter vmware 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 The cortical [...] on 03/02/111729 Sign by: Donna Martin MD 04-Xpi-89109:00 UPPER EXT. JOINT ONLY(ROUTINE) Radiology Report See [...] on 01/29/111715 Sign by: Aakash Barbosa MD 40-Txb-89264:44 ABDOMEN/PELVIS WITH CONTRAST Radiology Report See Note [...] 02/01/11 1021 Sign by: ALEJANDRO DRUMMOND DO 64-Lls-104897:57 SINUS/FACIAL BONE Radiology Report See Note (Normal) [...] 01/19/11 1448 Sign by: Misael Hebert MD 18-Zmx-51545:00 BRAIN W/WO CONTRAST Radiology Report See Note [...] addition, there is a small region of gpuyjdxgnY7rrmaxgkxgh along the anterior margin of the mass, [...] on 01/19/111650 Sign by: GAYE PEREZ MD 27-Xtr-00054:00 BRAIN/HEAD W/WO CONTRAST Radiology Report See Note [...] 01/19/11 1447 Sign by: Misael Hebert MD 06-Obl-440319:08 BILAT SCRN DIGITAL & CAD Radiology Report [...] CREATININE RATIO Comments: PATIENT NOT FASTINGPERFORMED BY: 1001 Menus [facility] Ijevbg8334 [facility] [id number] (57335) AND (38755) Microalb/Creat Ratio 1028.4 {mg/g_creat} (Abnormal) Range: 0.0-30.0 Microalbumin, Urine 1341.0 ug/mL (Abnormal) Range: 0.0-17.0 Creatinine, Urine 130.4 mg/dL (Normal) Range: 15.0-278.0 :20 CBC WITH MANUAL DIFF (39650) Comments: PATIENT NOT FASTINGPERFORMED BY: ABT Molecular ImagingCoZuni HospitalMlpbtg2619 [facility] HealthcareWatson BrownLev[facility] [id number] Immature Grans (Abs) 0.0 {x10E3/uL} (Normal) Range: [...] {x10E3/uL} (Normal) Range: 4.0-10.5 :20 LIPID PANEL (76482) Comments: PATIENT NOT FASTINGPERFORMED BY: EVE [facility]6370 [facility] [id number] LDL/HDL Ratio 0.9 {ratio_units} (Normal) Range: 0.0-3.2 [...] COMPREHENSIVE Comments: PATIENT NOT FASTINGPERFORMED BY: EVE LabCoOverlook Medical CenterWmjxrm0183 [facility] [id number] (12966) ALT (SGPT) 28 [iU]/L (Normal) Range: 0-40 [...] (Abnormal) Range: 65-99 :39 HgA1C , Office (70099) HgA1C , Office 6.5 % (Normal) Range: 4.6 - 7.1 :39 Blood Glucose , Office (98912) Blood Glucose , Office 128 (Normal) 3-Vfk-723341:19 CBC With Differential/Platelet Comments: PATIENT WAS FASTINGPERFORMED BY: LabCoOverlook Medical CenterCaaggc0441 [facility] [id number] Immature Grans (Abs) 0.0 {x10E3/uL} (Normal) Range: [...] 3.80-5.10 WBC 5.6 {x10E3/uL} (Normal) Range: 4.0-10.5 1-Roy-271948:19 Comp. Metabolic Panel (14) Comments: PATIENT WAS FASTINGPERFORMED BY: LabCoOverlook Medical CenterEgzeck6092 [facility] [id number]; appt 10/10/11 ALT (SGPT) 18 [iU]/L (Normal) [...] Glucose, Serum 113 mg/dL (Abnormal) Range: 65-99 8-Ohi-024274:19 Lipid Panel With LDL/HDL Comments: PATIENT WAS FASTINGPERFORMED BY: [facility] Pmrnsv3845 [facility] [id number] Ratio LDL/HDL Ratio 1.0 {ratio_units} Range: 0.0-3.2 [...] 0.800 {uIU/mL} Comments: PATIENT WAS FASTINGPERFORMED BY: [employer]do [facility] [id number] 2:19 (Normal) Range: 0.450-4.500 Vitamin D, 25-Hydroxy 44.0 ng/mL (Normal) Comments: PATIENT WAS FASTINGPERFORMED BY: [employer] [facility] [id number] 2:19 Range: 32.0-100.0 Comments: Effective February 22, 2011 Vitamin D, 25-Hydroxy reference intervals will be changing to 30-100. .Recent studies consider the lower li sandra of 32.0 ng/mL to be athreshold for optimal health.Otf HAYES. J Nutr. 2004;135(2):317-22. 42-Jdv-588996:54 HgA1C , Office (33057) HgA1C , Office 6.6 % (Normal) Range: 4.6 - 7.1 :54 Blood Glucose , Office (08114) Blood Glucose , Office 134 (Normal) 7-Ejy-528534:40 Creatinine Clearance Comments: PERFORMED BY: [employer] [facility] [id number] Information: 10/07@7AM 10/08@3AM Creatinine Clearance 56 mL/min [...] Protein Total, Qn, 24-Hr Comments: PERFORMED BY: Spark[employer]6370 QuickGiftsin [place] [id number] Urine Prot,24hr calculated 610.5 {mg/24_hr} (Abnormal) Range: 30.0-150.0 Protein,Total,Urine 40.7 mg/dL (Abnormal) Range: 0.0-15.0 :46 Vitamin D Hydroxy (03603) Comments: PATIENT WAS FASTINGPERFORMED BY: Sparkbuy6370 [employer] [id number] Vitamin D, 25-Hydroxy 36.5 ng/mL (Normal) Range: 32.0-100.0 Comments: Recent studies consider the lower limit of 32.0 ng/mL to be athreshold for optimal health.Otf HAYES. J Nutr. 2004;135(2):317-22. :46 METABOLIC PANEL, COMPREHENSIVE Comments: PATIENT WAS FASTINGPERFORMED BY: Sparkbuy6370 [facility] [id number] (79941) ALT (SGPT) 34 [iU]/L (Normal) Range: 0-40 [...] mg/dL (Abnormal) Range: 65-99 :46 LIPID PANEL (59823) Comments: PATIENT WAS FASTINGPERFORMED BY: Sparkbuy6370 [facility] [id number] LDL Cholesterol Calc 85 mg/dL (Normal) Range: [...] MANUAL DIFF Comments: PATIENT WAS FASTINGPERFORMED BY: RHLvision TechnologiesOverlook Medical CenterCzzkii2844 [facility] [id number] Information: [id number]; appt 10/12/10 (63379) Immature Grans (Abs) 0.0 {x10E3/uL} (Normal) Range: [...] 3.80-5.10 WBC 5.5 {x10E3/uL} (Normal) Range: 4.0-10.5 0-Zym-127533:07 HgA1C , Office (95692) HgA1C , Office 6.6 % (Normal) Range: 4.6 - 7.1 :07 Blood Glucose , Office (58315) Blood Glucose , Office 114 (Normal) 69-Dqn-539695:00 Creatinine Clearance Comments: PERFORMED BY: EVE [facility] Zkdsgv9853 [facility] [id number] Information: 12/31@8AM 01/01@4AM Creatinine Clearance 48 mL/min [...] Creatinine, Serum 1.20 mg/dL (Abnormal) Range: 0.57-1.00 27-Sgq-179246:00 Protein Total, Qn, 24-Hr Comments: PERFORMED BY: [facility]6370 [facility] [id number] Urine Prot,24hr calculated 1070.6 {mg/24_hr} (Abnormal) Range: 30.0-150.0 Protein,Total,Urine 79.3 mg/dL (Abnormal) Range: 0.0-15.0 43-Lla-675172:48 BILAT SCRN DIGITAL & CAD Radiology Report See Note (Normal) Comments: Exam Number: [id number] MAMMOGRAPHY - BILATERAL SCREENING INDICATION:Routine annual screening [...] of attaching a ResultCode to this exam.ADDENDUM: [id number] HPBI/MDS Reported By: MISAEL HEBERT 91-Iyz-001861:48 DEXA BONE DENSITY STUDY (HP) Radiology Report See Note (Normal) Comments: Exam Number: [id number] CLINICAL:This is a 69-year-old female patient with postmenopausal screening. EXAMINATION:DUAL ENERGY X-RAY ABSORPTIOMETRY / DEXA. TECHNIQUE:Bone Density Measurements (BMD) of lumb ar spine and bilateral hipswere obtained using a [employer] scanner.. COMPARISON:None. FINDINGS: Lumbar Spine (L1-L4): g/cm2 [...] Osteoporosis Foundation http://www.nof.org Reported By: MISAEL HEBERT 51-Gqw-626773:29 HgA1C , Office (49054) HgA1C , Office 6.5 % (Normal) Range: 4.6 - 7.1 68-Yan-064807:29 Blood Glucose , Office (53782) Blood Glucose , Office 109 (Normal) 58-Axg-77690:05 CBC With Differential/Platelet Comments: PATIENT WAS FASTINGPERFORMED BY: LabCo Rewmys1008 [facility] [id number] Immature Grans (Abs) 0.0 {x10E3/uL} (Normal) Range: [...] Panel (14) Comments: PATIENT WAS FASTINGPERFORMED BY: [facility]TalentsSaint [facility] [id number] ALT (SGPT) 20 [iU]/L (Normal) Range: 0-40 [...] With LDL/HDL Comments: PATIENT WAS FASTINGPERFORMED BY: [employer] [facility] [id number] Ratio HDL Cholesterol 54 mg/dL (Normal) Comments: [...] ng/mL (Normal) Comments: PATIENT WAS FASTINGPERFORMED BY: Sparkbuy6370 [place] [facility] [id number] :05 Range: 32.0-100.0 Comments: Recent studies consider the lower limit of 32.0 ng/mL to be athreshold for optimal health.Otf HAYES. J Nutr. 2004;135(2):317-22. 31-Nuo-10909:41 SPLEEN (HP) Radiology Report See Note (Normal) Comments: Exam Number: [id number] ULTRASOUND OF THE SPLEEN A goal directed [...] Protein, 0.5 mg/L (Normal) Comments: PERFORMED BY: [facility]6370 [facility] [id number] 10:54 Quant Range: 0.0-4.9 17-Jun-2009 Hemoglobin A1c 6.3 % (Abnormal) Comments: PERFORMED BY: [facility]6370 [facility] [id number] 10:54 Range: 4.8-5.6 Comments: Increased risk for diabetes: 5.7 - 6.4Diabetes: >6.4Glycemic control for adults with diabetes: <7.0.Please note reference interval change 17-Jun-2009 Sedimentation 4 mm/h (Normal) Comments: PERFORMED BY: [employer] [place] [facility] [id number] 10:54 Rate-Westergren Range: 0-30 17-Jun-2009 Vitamin B12 1372 pg/mL Comments: PERFORMED BY: Pad[employer]70 [facility] HealthcareWat[facility] [id number] 10:54 (Abnormal) Range: 211-911 Comments: Effective July 14, 2009, Vitamin B12 will bechanging to the Haptik ECLIA methodology. Thereference interval will be changing to:211 - 946 pg/mL 17-Jun-2009 Vitamin D, 25-Hydroxy 37.7 ng/mL Comments: PERFORMED BY: [employer]70 [facility] [id number] 10:54 (Normal) Range: 32.0-100.0 Comments: Recent studies consider the lower limit of 32.0 ng/mL to be athreshold for optimal health.Otf HAYES. J Nutr. 2004;135(2):317-22. 63-Eii-830065:34 Vitamin D Hydroxy Comments: PATIENT NOT FASTINGPERFORMED BY: Spark[employer]6370 [facility] [id number] Information: [id number],2ND ORDER NO DRAW F EE (77971) Vitamin D, 25-Hydroxy 48.5 ng/mL (Normal) Range: 30.0-100.0 Comments: Vitamin D deficiency has been defined by the [place] of[place]icine and an Endocrine Society practice guideline as alevel of serum 25-OH vitamin D less than 20 ng/mL (1,2).The Endocrine Society went on to further define vitamin Dinsufficiency as a level between 21 and 29 ng/mL (2).1. IOM ([place] of Medicine). 2010. Dietary reference intakes for calcium and D. [place]: The National Academies Press.2. Mira MF, Rosette NC, Tommy SWAIN, et al. Evaluation, treatment, and prevention of vitamin D deficiency: an Endocrine Society clinical practice guideline. JCEM. 2010; 96(7):1911-30. :50 HgA1C , Office (09315) HgA1C , Office 6.7 % (Normal) Range: 4.6 - 7.1 :50 Blood Glucose , Office (06282) Blood Glucose , Office 117 (Normal) :12 CBC With Differential/Platelet Comments: PERFORMED BY: [facility]6370 [facility] [id number] Information: 06/10@6AM3/10@330 Hematology Comments: Note: (Normal) Comments: [...] 3.80-5.10 WBC 3.6 {x10E3/uL} (Abnormal) Range: 4.0-10.5 06-Tzg-780077:12 Comp. Metabolic Panel (14) Comments: PERFORMED BY: EVE USINE IO Pafncj3753 [facility] [id number] Alkaline Phosphatase, S 68 [iU]/L (Normal) Range: [...] Glucose, Serum 124 mg/dL (Abnormal) Range: 65-99 95-Rjt-275633:12 Creatinine Clearance Comments: PERFORMED BY: EVE [facility]6370 [facility] [id number] Creatinine Clearance 49 mL/min (Abnormal) Range: 88-128 Comments: The above range is based on 1.73 square meter average body surfacearea. Creatinine, Ur 24hr 800.0 {mg/24_hr} (Normal) Range: 800.0-1800.0 Creatinine, Urine 40.0 mg/dL (Normal) Range: 15.0-278.0 18-Oke-201177:12 Lipid Panel With LDL/HDL Comments: PERFORMED BY: [employer]70 [facility] [id number] Ratio HDL Cholesterol 61 mg/dL (Normal) Comments: According to ATP-III Guidelines, HDL-C >59 mg/dL is considered anegative risk factor for CHD. LDL Cholesterol Calc 74 mg/dL (Normal) Range: 0-99 LDL/HDL Ratio 1.2 {ratio_units} (Normal) Range: 0.0-3.2 VLDL Cholesterol Cesar 17 mg/dL (Normal) Range: 5-40 Cholesterol, Total 152 mg/dL (Normal) Range: 100-199 Triglycerides 87 mg/dL (Normal) Range: 0-149 20-Yfc-786198:12 Protein Total, Qn, 24-Hr Comments: PERFORMED BY: [employer]70 [facility] [id number] Urine Prot,24hr calculated 1172.0 {mg/24_hr} Range: 30.0-150.0 (Abnormal) Protein,Total,Urine 58.6 mg/dL (Abnormal) Range: 0.0-15.0 TSH 1.280 {uIU/mL} Comments: PERFORMED BY: ZappyLabOverlook Medical CenterPpwwbn4937 [facility] [id number] 1:12 (Normal) Range: 0.450-4.500 :58 HgA1C , Office (23633) HgA1C , Office 6.0 % (Normal) Range: 4.6 - 7.1 :58 Blood Glucose , Office (29199) Blood Glucose , Office 113 (Normal) 2-Htz-212968:03 CBC With Differential/Platelet Comments: PATIENT WAS FASTINGPERFORMED BY: EVE ZappyLabOverlook Medical CenterZuyyso4099 [facility] [id number] Baso (Absolute) 0.0 {x10E3/uL} (Normal) Range: 0.0-0.2 [...] 11.7-15.0 WBC 3.2 {x10E3/uL} (Abnormal) Range: 4.0-10.5 7-Czu-749649:03 Comp. Metabolic Panel (14) Comments: PATIENT WAS FASTINGPERFORMED BY: [facility]Former[facility]6370 [facility] [id number] A/G Ratio 2.0 (Normal) Range: 1.1-2.5 Albumin, [...] Glucose, Serum 116 mg/dL (Abnormal) Range: 65-99 2-Ljd-769401:03 Lipid Panel With LDL/HDL Comments: PATIENT WAS FASTINGPERFORMED BY: LabCoOverlook Medical CenterNzqgsd0442 [facility] [id number] Ratio Cholesterol, Total 167 mg/dL (Normal) Range: [...] ng/mL (Normal) Comments: PATIENT WAS FASTINGPERFORMED BY: Course HeroCo Ehwiok0393 [facility] [id number] :03 Range: 32.0-100.0 Comments: Recent studies consider the lower limit of 32.0 ng/mL to be athreshold for optimal health.Otf HAYES. J Nutr. 2004;135(2):317-22. 71-Lvd-299795:32 Urinalysis, Office (61353) UA - BILIRUBIN Negative (Normal) UA - BLOOD Hemolyzed Trace (Normal) UA - GLUCOSE Negative (Normal) UA - KETONES Negative mg/dL (Normal) UA - LEUKOCYTE ESTERASE Negative (Normal) UA - NITRITE Negative (Normal) UA - PH 6.5 (Normal) UA - PROTEIN 300 mg/dL (Normal) UA - SPECIFIC GRAVITY 1.020 (Normal) URINE UROBILINGN JATINDER TIMED 2 mg/dL (Normal) 5-Uup-956890:19 URINE SETH CULTURE-JATINDER COL Comments: PATIENT NOT FASTINGClinical Information: SRC:UR ADD [id number] PERFORMED BY: [facility] Bgagdh9634 [facility] [id number] COUNT (88455) Result 1 ECV (Normal) Comments: Escherichia coli, [...] report (Normal) Culture,Comprehensiv e 09-Jan-20098:17 Urinalysis, Office (79272) UA - BILIRUBIN Negative (Normal) UA - BLOOD Hemolyzed Large (Normal) UA - GLUCOSE Negative (Normal) UA - KETONES Negative mg/dL (Normal) UA - LEUKOCYTE ESTERASE Moderate (Normal) UA - NITRITE Negative (Normal) UA - PH 7.0 (Normal) UA - PROTEIN 300 mg/dL (Normal) UA - SPECIFIC GRAVITY 1.020 (Normal) URINE UROBILINGN JATINDER TIMED 2 mg/dL (Normal) 7-Vgl-132953:05 Comp. Metabolic Panel (14) Comments: PATIENT WAS FASTINGPERFORMED BY: LabFormerly [facility]6370 [facility] [id number] A/G Ratio 1.7 (Normal) Range: 1.1-2.5 Albumin, [...] (7) Comments: PATIENT WAS FASTINGPERFORMED BY: [facility]6370 [facility] [id number] Bilirubin, Direct 0.12 mg/dL (Normal) Range: 0.00-0.40 :05 Lipid Panel With LDL/HDL Comments: PATIENT WAS FASTINGPERFORMED BY: [place] 4713270 [facility] [id number] Ratio Cholesterol, Total 170 mg/dL (Normal) Range: [...] (Normal) Comments: PATIENT WAS FASTINGPERFORMED BY: [facility] [id number] :05 Range: 2.5-4.5 PTH, Intact 19 pg/mL (Normal) Comments: PATIENT WAS FASTINGPERFORMED BY: [facility]6370 [facility] [id number] :05 Range: 15-65 Vitamin D, 25-Hydroxy 38.9 ng/mL (Normal) Comments: PATIENT WAS FASTINGPERFORMED BY: [facility]6370 [facility] [id number] :05 Range: 32.0-100.0 Comments: Recent studies consider the lower limit of 32.0 ng/mL to be athreshold for optimal health.Otf HAYES. J Nutr. 2004;135(2):317-22. 4-Jiu-547441:40 HgA1C , Office (06944) HgA1C , Office 6.0 % (Normal) Range: 4.6 - 7.1 :40 Blood Glucose , Office (12203) Blood Glucose , Office 109 (Normal) :42 CBC With Differential/Platelet Comments: PATIENT WAS FASTINGPERFORMED BY: LabCoOverlook Medical CenterLwpycs1451 [facility] [id number] Baso (Absolute) 0.0 {x10E3/uL} (Normal) Range: 0.0-0.2 [...] Panel (14) Comments: PATIENT WAS FASTINGPERFORMED BY: LabCoOverlook Medical CenterWprcmm9226 [facility] [id number] A/G Ratio 1.6 (Normal) Range: 1.1-2.5 Albumin, [...] Sodium, Serum 140 mmol/L (Normal) Range: 135-145 9-Xto-215599:09 FECAL OCCULT HGB ASSAY, QUAL, 1-3 SIMULTANEOUS DETERMINATIONS (36620) FECAL OCCULT HGB ASSAY, QUAL, 1-3 SIMULTANEOU neg (Normal) :42 Microscopic Examination Comments: PATIENT WAS FASTINGPERFORMED BY: [facility] Teuuyy4039 [facility] [id number] Bacteria None seen (Normal) Cast Type Hyaline casts (Normal) Casts Present {/lpf} (Abnormal) Epithelial Cells (non renal) 0-10 {/hpf} (Normal) Range: 0 - 10 Mucus Threads Present (Normal) RBC 0-3 {/hpf} (Normal) Range: 0 - 3 WBC 0-5 {/hpf} (Normal) Range: 0 - 5 :42 URINALYSIS W/O MICRO (21550) Comments: PATIENT WAS FASTINGPERFORMED BY: [facility]ATION[facility] [id number] Appearance Clear (Normal) Bilirubin Negative (Normal) Glucose Negative (Normal) Ketones Negative (Normal) Microscopic Examination See below: (Normal) Nitrite, Urine Negative (Normal) Occult Blood Negative (Normal) pH 5.0 (Normal) Range: 5.0-7.5 Protein 1+ (Abnormal) Specific [place] 1.013 (Normal) Range: 1.005-1.030 Urine-Color Yellow (Normal) Urobilinogen,Semi-Qn 0.2 mg/dL (Normal) Range: 0.0-1.9 WBC Esterase 1+ (Abnormal) :42 MICROALBUMIN: CREATININE RATIO Comments: PATIENT WAS FASTINGPERFORMED BY: [facility] [id number] ([id number]) AND (20185) Creatinine, Urine 76.1 mg/dL (Normal) Range: 15.0-278.0 Microalb/Creat Ratio 292.1 {ug/mg_creat} (Abnormal) Range: 0.0-30.0 Microalbumin, Urine 222.3 ug/mL (Abnormal) Range: 0.0-17.0 :42 CBC WITH MANUAL DIFF (66188) Comments: PATIENT WAS FASTINGClinical Information: ADD DRAW FEE [id number] ADD J 17589 PERFORMED BY: [facility] [id number] Baso (Absolute) 0.0 {x10E3/uL} (Normal) Range: 0.0-0.2 [...] PANEL, COMPREHENSIVE Comments: PATIENT WAS FASTINGPERFORMED BY: LabCoOverlook [facility] CenterAktbcx5176 [facility] [id number] ([id number]) A/G Ratio 1.8 (Normal) Range: 1.1-2.5 Albumin, [...] Sodium, Serum 141 mmol/L (Normal) Range: 135-145 4-Akc-644359:23 HgA1C , Office (18793) HgA1C , Office 6.0 % (Normal) Range: 4.6 - 7.1 6-Ssl-885031:23 Blood Glucose , Office (75628) Blood Glucose , Office 103 (Normal) 97-Bwa-269238:38 CBC WITH MANUAL DIFF (76063) Comments: PATIENT WAS FASTINGClinical Information: ADD DRAW FEE 991993 ADD J 36404 PERFORMED BY: [facility]Co[facility] [place] 2158570 [facility] [id number] Baso (Absolute) 0.0 {x10E3/uL} (Normal) Range: 0.0-0.2 [...] 11.7-15.0 WBC 4.0 {x10E3/uL} (Normal) Range: 4.0-10.5 19-Dqj-496035:38 METABOLIC PANEL, COMPREHENSIVE Comments: PATIENT WAS FASTINGPERFORMED BY: [facility]CoOver[facility] CenterXqvujx6709 [facility] [id number] (81611) A/G Ratio 1.8 (Normal) Range: 1.1-2.5 Albumin, [...] Sodium, Serum 142 mmol/L (Normal) Range: 135-145 52-Esk-754574:38 HEPATIC FUNCTION PANEL Comments: PATIENT WAS FASTINGPERFORMED BY: 1001 Menus LabSounder6370 [facility] [id number] (26355) Bilirubin, Direct 0.08 mg/dL (Normal) Range: 0.00-0.40 57-Lww-950713:38 LIPID PANEL (61328) Comments: PATIENT WAS FASTINGPERFORMED BY: 1001 Men[employer] LabSounder6370 [facility] [id number] Cholesterol, Total 200 mg/dL (Abnormal) Range: 100-199 [...] Cholesterol Cesar 18 mg/dL (Normal) Range: 5-40 8-Uia-290096:36 HgA1C , Office (17724) HgA1C , Office 6.1 % (Normal) Range: 4.6 - 7.1 6-Owy-896585:36 Blood Glucose , Office (54225) Blood Glucose , Office 98 (Normal) 81-Pdl-836538:33 CBC With Differential/Platelet Comments: PATIENT WAS FASTINGClinical Information: SRC:UR PERFORMED BY: EEV LabCoOverlook Medical CenterSceijv2595 [facility] [id number] Baso (Absolute) 0.0 {x10E3/uL} (Normal) Range: 0.0-0.2 [...] 11.7-15.0 WBC 4.8 {x10E3/uL} (Normal) Range: 4.0-10.5 23-Jbh-113657:33 Comp. Metabolic Panel (14) Comments: PATIENT WAS FASTINGPERFORMED BY: EVE LabCoOverlook Medical CenterBtgmot1742 [facility] [id number] A/G Ratio 1.6 (Normal) Range: 1.1-2.5 Albumin, [...] Serum 92 mg/dL (Normal) Range: 65-99 If -Indian 57 mL/min/1.73 Comments: Note: Persistent reduction for [...] Sodium, Serum 142 mmol/L (Normal) Range: 135-145 78-Zca-769813:33 Lipid Panel With LDL/HDL Comments: PATIENT WAS FASTINGPERFORMED BY: LabCoOverlook Medical CenterDcfsje3342 [facility] [id number] Ratio Cholesterol, Total 174 mg/dL (Normal) Range: 100-199 HDL Cholesterol 67 mg/dL (Normal) Comments: According to ATP-III Guidelines, HDL-C >59 mg/dL is considered anegative risk factor for CHD. LDL Cholesterol Calc 85 mg/dL (Normal) Range: 0-99 LDL/HDL Ratio 1.3 {ratio_units} (Normal) Range: 0.0-3.2 Triglycerides 110 mg/dL (Normal) Range: 0-149 VLDL Cholesterol Cesar 22 mg/dL (Normal) Range: 5-40 76-Wnt-820905:33 Urine Culture,Comprehensive Comments: PATIENT WAS FASTINGPERFORMED BY: LabCoOverlook Medical CenterPxpqio2598 [facility] [id number] Antimicrobial MIHEAD (Normal) Comments: S = Susceptible; [...] Enterococcus. (Normal) Urine Final report (Normal) Culture,Comprehensive 4-Ijo-276534:10 HgA1C , Office (42237) HgA1C , Office 5.9 % (Normal) Range: [...] mL (Normal) URINE PROTEIN 20.0 mg/dL (Abnormal) 64-Qry-211577:17 Urine Culture,Comprehensive Comments: Clinical Information: SRC:UR PERFORMED BY: [facility] Barafon [facility] [id number] Result 1 CNSNSS (Normal) Comments: Coagulase negative Staphylococcus species, not Staphylococcussaprophyticus.600 Colonies/mLSusceptibility or resistance of staphylococci to oxacillin predictssusceptibility or resistance to (a) other be ov-osmejmqsz-vwithlpjruxtdwdxd such as cloxacillin and dicloxacillin, (b) combinationsof a penicillin and a beta-lactamase inhibitor, and(c) anti- staphylococcal cephalosporins. Routine testing of otherp enicillins, beta-lactam/beta-lactamase inhibitor combinations,cephems, and carbapenems is not advised by the CLSI Standards(L048-V64, 2005). S = Susceptible; I = Intermediate; R = Resistant * P = Positive; N = Negative MICS are expressed in micrograms per mL Antibiotic RSLT#1 RSLT#2 RSLT#3 RSLT#4Ciprofloxacin RGentami kristian SLevofloxacin RNitrofurantoin SOxacillin SPenicillin RRifampin STrimethoprim/Sulfa SVancomycin S Urine Final report Culture,Comprehensi (Normal) ve 2-Xct-641947:53 Metabolic Panel, Basic (42326) Comments: PATIENT NOT FASTINGClinical Information: ADD DRAW FEE [id number] ADD J 94507 PERFORMED BY: [facility] Bar[facility]on [facility] [id number] BUN 39 mg/dL (Abnormal) Range: 5-26 BUN/Creatinine Ratio 33 (Abnormal) Range: 8-27 Calcium, Serum 9.8 mg/dL (Normal) Range: 8.5-10.6 Carbon Dioxide, Total 22 mmol/L (Normal) Range: 20-32 Chloride, Serum 103 mmol/L (Normal) Range: 97-108 Creatinine, Serum 1.20 mg/dL (Abnormal) Range: 0.57-1.00 Glom Filt Rate, Est 45 mL/min/1.73 Range: 60-128 (Abnormal) Glucose, Serum 101 mg/dL (Abnormal) Range: 65-99 If -Indian 55 mL/min/1.73 Range: 60-128 (Abnormal) Comments: Note: Persistent reduction for 3 months or more in an eGFR<60 mL/min/1.73 m2 defines CKD. Patients with eGFR values>/=60 mL/min/1.73 m2 may also have CKD if evidence of persistentproteinuria is present. Additional information may be found [email or web address].org. Potassium, Serum 5.1 mmol/L (Normal) Range: 3.5-5.2 Sodium, Serum 139 mmol/L (Normal) Range: 135-145 :09 HgA1C , Office (41428) HgA1C , Office 6.1 % (Normal) Range: 4.6 - 7.1 :09 Blood Glucose , Office (19968) Blood Glucose , Office 163 (Normal) :37 SPINE,LUMBAR (ROUTINE) Radiology Report See Note (Normal) Comments: Exam Number: [id number] MRI LUMBAR SPINE CLINICAL STATEMENTLow back pain [...] onboth sides. Reported By: MODESTA COPE M.D. 99-Pnu-584705:00 [facility] Radiology Report See Note (Normal) Comments: Exam Number: [id number] MAMMOGRAM, BILATERAL SCREENING DIGITAL AND CAD HISTORYRoutine screening. Full field digital images were obtained in mediolateral oblique andcraniocaudal projections. CAD images w ere reviewed. The current study is compared to the [facility]. A small metal marker is [...] mammograms werealso examined with computer-aided detection software (ImageFix8, [employer], [employer] Reported By: DONNA OJEDA M.D. 35-Xqf-994293:59 DEXA BONE DENSITY STUDY (HP) Radiology Report See Note (Normal) Comments: Exam Number: [id number] BONE DENSITOMETRY HISTORYPost menopausal. TECHNIQUE Bone densitometry [...] Report See Note (Normal) Comments: Exam Number: [id number] FIVE VIEW LUMBAR SPINE AP, lateral, both [...] Randm Ur Comments: PATIENT NOT FASTINGPERFORMED BY: Sparkbuy6370 [facility]GiftsLev[facility] [id number] Creatinine, Urine 46.8 mg/dL (Normal) Microalb/Creat Ratio 712.8 {ug/mg_creat} (Abnormal) Range: 0.0-30.0 Microalbum.,U,Random 333.6 ug/mL (Abnormal) Range: 0.0-17.0 :13 Creatinine Clearance Comments: PATIENT NOT FASTINGClinical Information: HT-5'4'' WT-184 PERFORMED BY: [facility] [id number] Creatinine Clearance 40 mL/min (Abnormal) Range: 88-128 Comments: The above range is based on 1.73 square meter average body surfacearea. Creatinine, Serum 1.30 mg/dL (Normal) Range: 0.50-1.50 Creatinine, Ur 24hr 754.8 {mg/24_hr} Range: 800.0-1800.0 (Abnormal) Creatinine, Urine 44.4 mg/dL (Normal) Glom Filt Rate, Est 41 mL/min (Abnormal) Range: 60-128 If -Indian 50 mL/min (Abnormal) Range: 60-128 Comments: Note: Persistent reduction for 3 months or more in an eGFR<60 mL/min/1.73 m2 defines CKD. Patients with eGFR values>/=60 mL/min/1.73 m2 may also have CKD if evidence of persistentproteinuria is present. .Additional information may be found at www.kdoqi.org. 05-Sep-20079:13 Protein Total, Qn, 24-Hr Comments: PATIENT NOT FASTINGPERFORMED BY: LabCoOver[facility] CenterSqzxjf5536 [facility] [id number] Urine Protein,Total,Urine 49.0 mg/dL (Abnormal) Range: 0.0-15.0 Prt, 24hr calculated 833.0 {mg/24_hr} (Abnormal) Range: 30.0-150.0 28-Qri-920564:00 CBCD,SMEAR DIFF CELLS COUNTED 100 (Normal) EOS [...] skin Planned Observations CBC with auto diff (72907)Indication: Diabetes mellitus type II, controlled On: 92-Rul-368182:22 Request HGB A1C (64603)Indication: Diabetes mellitus type II, controlled On: :21 Request METABOLIC PANEL, COMPREHENSIVE (90898)Indication: Chronic kidney disease, stage 3 On: 14-Lue-842809:21 Request LIPID PANEL (61825)Indication: Other and unspecified hyperlipidemia On: 60-Sli-821937:21 Request Vitamin D Hydroxy (96731)Indication: Vitamin D deficiency On: 59-Cyb-660473:21 Request PARATHORMONE (89731)Indication: Chronic kidney disease, stage 3 On: 06-Mar-20188:59 Request Comments: fax to [phone] MICROALBUMIN: CREATININE RATIO (59116) AND (75252)Indication: Chronic kidney disease, stage 3 On: 06-Mar-20188:55 Request Comments: fax to [phone] RENAL FUNCTION PANEL (83083)Indication: Chronic kidney disease, stage 3 On: :54 Request Comments: fax to [phone] MAGNESIUM (82506)Indication: Chronic kidney disease, stage 3 On: 06-Mar-20188:54 Request Comments: fax to [phone] Parathyroid Hormone-related Peptide (PTH-rP) (29160)Indication: Chronic kidney disease, stage 3 On: 06-Mar-20188:54 Request Comments: fax to [phone] CBC W/AUTO DIFF WBC (96691)Indication: Chronic kidney disease, stage 3 On: 31-Oqp-325852:25 Request Parathyroid Hormone-related Peptide (PTH-rP) (57523)Indication: Vitamin D deficiency On: 5-Ams-672747:43 Request Comments: send results to Dr. Santana fax: [phone] VITAMIN D, 1, 25-DIHYDROXY (31318)Indication: Vitamin D deficiency On: 5-Rck-414823:42 Request Comments: send results to Dr. Santana fax: [phone] Clostridium difficile Toxin A+B, EIA (56701)Indication: Chronic diarrhea On: 3-Hzu-852581:36 Request Vitamin D Hydroxy (68585)Indication: Osteopenia On: 8-Wez-113205:20 Request CBC W/AUTO DIFF WBC (18245)Indication: Hypertension, benign On: 2-Mbf-828569:16 Request CALCIFEDIOL (78464)Indication: Chronic kidney disease, stage 3 On: :04 Request Renal function Panel (87501)Indication: Chronic kidney disease, stage 3 On: :04 Request Magnesium (38825)Indication: Chronic kidney disease, stage 3 On: :04 Request MICROALBUMIN: CREATININE RATIO (44258) AND (05496)Indication: Chronic kidney disease, stage 3 On: :04 Request Parathyroid Hormone-related Peptide (PTH-rP) (54585)Indication: Chronic kidney disease, stage 3 On: :04 Request T4, FREE (THYROXINE) (42133)Indication: Cold feeling On: :31 Request TSH (37625)Indication: Cold feeling On: :31 Request PARATHORMONE (84697)Indication: Chronic kidney disease, stage 3 On: 68-Vdp-94630:18 Request Comments: copy to Dr. Santana [phone] CALCIFIDIOL (74254) VIT D 25Indication: Chronic kidney disease, stage 3 On: 07-Ran-62833:16 Request Comments: copy to Dr. Santana [phone] MAGNESIUM (53343)Indication: Chronic kidney disease, stage 3 On: 52-Ytj-06465:15 Request Comments: copy to Dr. Santana [phone] PROTEIN/CREAT RATIO, URINE (05808)Indication: Chronic kidney disease, stage 3 On: 14-Pip-03836:15 Request Comments: copy to Dr. Santana [phone] LIPID PANEL (05707)Indication: Mixed hyperlipidemia On: 96-Upw-621789:21 Request CBC with auto diff (18306)Indication: Diabetes mellitus type II, controlled On: 24-Hhq-545826:20 Request METABOLIC PANEL, COMPREHENSIVE (73093)Indication: Diabetes mellitus type II, controlled On: 29-Mif-737791:20 Request HGB A1C (26600)Indication: Diabetes mellitus type II, controlled On: 46-Msd-799412:10 Request Vitamin D Hydroxy (61805)Indication: Osteopenia On: 11-Uom-301902:08 Request TSH (THYROID STIMULATING HORMONE) (17884)Indication: Depression On: 84-Sry-084767:06 Request LIPID PANEL (42068)Indication: Other and unspecified hyperlipidemia On: 40-Nmx-788462:06 Request CBC with auto diff (38849)Indication: Diabetes mellitus type II, controlled On: 01-Mpj-172836:06 Request METABOLIC PANEL, COMPREHENSIVE (23364)Indication: Diabetes mellitus type II, controlled On: 84-Zai-707925:06 Request CREATININE CLEARANCE (14964)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 On: 9-Ucj-494047:38 Request Total Protein,24 Hour Urine (59809)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 On: 4-Ayd-072752:38 Request CBC W/AUTO DIFF WBC (27899)Indication: Diabetes mellitus type II, controlled On: 59-Kek-300026:11 Request HgA1C , Office (44460)Indication: Diabetes mellitus type II, controlled On: 05-Ehn-582915:23 Request CULTURE, SPUTUM (05322)Indication: Cough On: 45-Mgs-040752:47 Request HEPATIC FUNCTION PANEL (45520)Indication: Elevated LFTs On: 05-Sqe-62870:24 Request CREATININE CLEARANCE (70489)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 On: 03-Bvc-12501:33 Request 24 hour urine for Protein (05692)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 On: :33 Request CBC WITH MANUAL DIFF (72496)Indication: Diabetes mellitus type II, controlled On: :29 Request METABOLIC PANEL, COMPREHENSIVE (05492)Indication: Diabetes mellitus type II, controlled On: 22-Twv-637178:29 Request LIPID PANEL (01495)Indication: Mixed hyperlipidemia On: 54-Yff-759709:29 Request CREATININE CLEARANCE (98218)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 On: 6-Hjd-126718:45 Request 24 hour urine for Protein (98837)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 On: 6-Vle-776945:45 Request CREATININE CLEARANCE (90522)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 On: 75-Vzk-230867:57 Request 24 hour urine for Protein (80139)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 On: 25-Kka-731297:57 Request METABOLIC PANEL, COMPREHENSIVE (74360)Indication: Hypertension, benign On: :32 Request LIPID PANEL (51465)Indication: Mixed hyperlipidemia On: :32 Request C-REACTIVE PROTEIN (50219)Indication: Fatigue On: :24 Request SED RATE ERYTHROCYTE (71653)Indication: Headache On: :24 Request VITAMIN B-12 (CYANOCOBALAMIN) (72244)Indication: Fatigue On: :24 Request LIPID PANEL (64084)Indication: Mixed hyperlipidemia On: :41 Request CBC WITH MANUAL DIFF (55574)Indication: Hypertension, benign On: :41 Request METABOLIC PANEL, COMPREHENSIVE (12438)Indication: Hypertension, benign On: :41 Request CREATININE CLEARANCE (25408)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 On: :34 Request 24 hour urine for Protein (04882)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 On: 2-Jof-139257:34 Request LIPID PANEL (75503)Indication: Mixed hyperlipidemia On: 0-Ltv-461966:22 Request HEPATIC FUNCTION PANEL (75155)Indication: Mixed hyperlipidemia On: 8-Dob-030295:22 Request Vitamin D Hydroxy (77689)Indication: Hypercalcemia On: 5-Jmc-664347:22 Request PHOSPHORUS (06084)Indication: Hypercalcemia On: 8-Vwz-523288:22 Request PARATHORMONE (82843)Indication: Hypercalcemia On: 2-Dxp-202406:22 Request METABOLIC PANEL, COMPREHENSIVE (11618)Indication: Hypercalcemia On: 4-Sou-452276:22 Request CBC WITH MANUAL DIFF (14179)Indication: fsgs On: 4-Vsn-209675:58 Request LIPID PANEL (50701)Indication: Mixed hyperlipidemia On: 3-Avw-948034:58 Request METABOLIC PANEL, COMPREHENSIVE (69017)Indication: Hypertension, benign On: 0-Tot-894738:58 Request Blood Glucose , Office (97642)Indication: Diabetes mellitus type II, controlled On: 6-Iil-158514:10 Request TSH (21870)Indication: Diabetes mellitus type II, controlled On: 18-Lgc-399005:51 Request METABOLIC PANEL, COMPREHENSIVE (75745)Indication: Diabetes mellitus type II, controlled On: :51 Request CBC WITH MANUAL DIFF (56475)Indication: Diabetes mellitus type II, controlled On: :51 Request MICROALBUMIN: CREATININE RATIO (61767) AND (36763)Indication: Diabetes mellitus type II, controlled On: :51 Request HEPATIC FUNCTION PANEL (64461)Indication: Other and unspecified hyperlipidemia On: :51 Request LIPID PANEL (88104)Indication: Other and unspecified hyperlipidemia On: 51 Request HgA1C , Office (98055)Indication: Diabetes mellitus type II, controlled On: :37 Request Blood Glucose , Office (12468)Indication: Diabetes mellitus type II, controlled On: :37 Request Planned Procedures DRAIN/INJECT MAJOR JOINT OR BURSA On: 13-Mar-2018 Intent ()By: SHONDA Andrade Comments: 2 cc Marcaine lot# [id number] exp: 1 cc Kenalog lot# [id number] exp DRAIN/INJECT MAJOR JOINT OR BURSA On: 07-Feb-2018 Intent ()By: Keri Singh MD Comments: lot no [id number] exp date 2017-12-26 DRAIN/INJECT MAJOR JOINT OR BURSA On: 31-Jan-2018 Intent ()By: Keri Singh MD Comments: Lot#[id number]:5-57-18Ijbbj:intra articular Site given:left knee Given By: Dr. Singh [facility] signed DRAIN/INJECT MAJOR JOINT OR BURSA On: 24-Jan-2018 Intent ()By: Keri Singh MD Comments: Lot#[id number]: 5-32-47Wssoq:intra artciular Site given:left knee Given By: Dr. Singh ABN signed Euflexxa Echo CompleteBy: Fast DO, Chaparrita A On: 16-Dec-2017 Intent Fast DO, Chaparrita A Flu Vaccine (Quadrivalent) 22040Zm: On: 16-Dec-2017 Intent Fast DO, Chaparrita A Fast DO, Chaparrita A Comments: Lot: [id number]: 10/01/18Site: L dltd, IMDose prefilled syringegiven by: Jamie reviewed and ABN signed Kenalog Injection, 10 mgm On: 03-Oct-2017 Intent (J3301)By: Keri Singh MD Comments: lot: [id number]: 11/20site/route: L knee Cartoid DopplerBy: Fast DO, Chaparrita A On: 12-Sep-2017 Intent Fast DO Chaparrita A Comments: november DIGITAL TOMOSYNTHESIS OF On: 12-Sep-2017 Intent BREAST (69977)By: Case Albrecht DOa A Comments: due november 02 Ambrocio WOLFF, Chaparrita A Kenalog Injection, 10 mgm On: 06-Jun-2017 Intent (J3301)By: Keri Singh MD Comments: bupivacacine 0.5% [id number] exp 09-20 kenalog 40 mg injected in. [id number] 07-21 MRI OF BRAIN WITH AND WITHOUT On: 06-Jun-2017 Intent CONTRAST (11394)By: Case Albrecht DOa A Fast DO, Chaparrita A ELECTROCARDIOGRAM, COMPLETE (ECG) On: 06-Jun-2017 Intent (39926)By: Ambrocio WOLFF Chaparrita A Fast Comments: ekg [...] 10-May-2017 Intent 1000 CC (Special Coverage Comments: lot:[id number]:IV left anticub dose:1000ml given by:eliazar HUMPHREY signedER, [employer] Instructions Apply. See [facility]: 2048) (J7030)By: Ambrocio WOLFF Chaparrita A Fast DO, Chaparrita A Radiology - Chest- PA and LatBy: On: 05-May-2017 Intent Keri Singh MD Aerosol Treatment (07035)By: On: 05-May-2017 Intent Keri Singh MD Radiology - ChestBy: Francisco MANN, On: 05-May-2017 Intent Keri Alonzo Comments: call wet read DRAIN/INJECT MAJOR JOINT OR BURSA On: 28-Feb-2017 Intent ()By: Keri Singh MD Comments: 1 cc Kenelog #[id number] cc Marcaine #[id number] Kenalog Injection, 10 mgm On: 28-Feb-2017 Intent (J3301)By: Keri Singh MD ELECTROCARDIOGRAM, COMPLETE (ECG) On: 10-Jan-2017 Intent (97928)By: Chaparrita Albrecht DO Comments: ekg showed normal sinus rhythym, normal axis, no acute st/t wave changes Chaparrita WOLFF Flu Vaccine (Quadrivalent) 48263Lr: On: 27-Dec-2016 Intent SHONDA Andrade DRAIN/INJECT MAJOR JOINT OR BURSA On: 20-Aug-2016 Intent ()By: Keri Singh MD DRAIN/INJECT MAJOR JOINT OR BURSA On: 13-Aug-2016 Intent ()By: SHONDA Andrade Comments: lot: [id number]:intra articular dose:2ml given by:Dr. Francisco HUMPHREY signedER, [employer] injection #3 DOPPLER ULTRASOUND OF RIGHT CAROTID On: 10-Aug-2016 Intent ARTERY (15814)By: Case Albrecht DOa A Comments: end of october Ambrocio DO, Chaparrita A DEXA SCAN AXIAL SKELETON (12755)By: On: 10-Aug-2016 Intent Ambrocio WOLFF Chaparrita A Fast DO, Chaparrita A Comments: end october SCREENING DIGITAL TOMOSYNTHESIS OF On: 10-Aug-2016 Intent BREAST (48254)By: Case Albrecht DOa A Comments: end of october Ambrocio WOLFF, Chaparrita A DRAIN/INJECT MAJOR JOINT OR BURSA On: 06-Aug-2016 Intent ()By: Keri Singh MD DRAIN/INJECT INTERMED JOINT/BURSA On: 06-Aug-2016 Intent ()By: SHONDA Andrade Comments: lot:[id number]:left knee dose:2mlgiven by:Dr. Francisco HUMPHREY signedER, [employer] injection number 2 Venous Doppler - LeftBy: Ambrocio WOLFF, On: 03-Aug-2016 Intent Chaparrita A Fast DO, Chaparrita A Comments: This is set up for August 05 at 11am- spoke with Rina in cv. DRAIN/INJECT INTERMED JOINT/BURSA On: 30-Jul-2016 Intent ()By: Keri Singh MD Comments: lot:[id number]:intra articular left knee dose: 2ml given by: Dr. Singh ABN signedER, [employer] injection #1 Radiology - Knee - LeftBy: Fast DO, On: 26-May-2016 Intent Chaparrita A Fast DO, Chaparrita A Flu Vaccine (Quadrivalent) 17772Ry: On: 27-Jan-2016 Intent Fast DO, Chaparrita A Fast DO, Chaparrita A Comments: Lot #:[id number] date:10/01/16mount given:0.5mlRoute: IMSite given: left deltoidGiven by: CARMELINA Hook ADMINISTRATION OF INFLUENZA VIRUS On: 27-Jan-2016 Intent VACCINE (G0008)By: Fast DO, Chaparrita A Fast DO, Chaparrita A DOPPLER ULTRASOUND OF RIGHT CAROTID On: 22-Oct-2015 Intent ARTERY (88941)By: Fast DO, Chaparrita A Fast DO, Chaparrita A MAMMOGRAM, SCREENING, BOTH BREAST On: 22-Oct-2015 Intent (89179)By: Fast DO, Chaparrita A Fast DO, Chaparrita A Ultrasound - RenalBy: Fast DO, On: 14-Jul-2015 Intent Chaparrita A Fast DO, Chaparrita A Radiology - Knee - Left - Weight On: 11-Mar-2015 Intent BearingBy: Fast DO, Chaparrita A Fast DO, Chaparrita A Radiology - Knee - Right - Weight On: 11-Mar-2015 Intent BearingBy: Fast DO, Chaparrita A Fast DO, Chaparrita A Flu Vaccine (Quadrivalent) 57682Fx: On: 11-Feb-2015 Intent Fast DO, Chaparrita A Fast DO, Chaparrita A EKG (81919)By: Fast DO, Chaparrita A On: 05-Nov-2014 Intent Fast DO, Chaparrita A Comments: ekg showed normal sinus rhythym, normal axis, no acute st/t wave changes left axis DRAIN/INJECT SMALL JOINT OR BURSA On: 07-Oct-2014 Intent ()By: Keri Singh MD MAMMOGRAM, SCREENING, BOTH BREAST On: 02-Aug-2014 Intent (94483)By: Chaparrita Albrecht DO Comments: Chaparrita estes DO A Cartoid DopplerBy: Ambrocio DO Chaparriat A On: 02-Aug-2014 Intent Ambrocio DO Chaparrita A DEXA SCAN AXIAL SKELETON (10734)By: On: 09-Apr-2014 Intent Ambrocio WOLFF, Chaparrita A Fast DO, Chaparrita A Prevnar 13 (58243)By: Ambrocio WOLFF, On: 30-Jan-2014 Intent Chaparrita Albrecht DO, Chaparrita A Comments: Lot:[id number]:05/20Dose:0.5Route:imSite:l armGiven By:Jarred signed FLU VAC, SPLIT, >3 YEARS, INTRAMUSC On: 16-Jan-2014 Intent (59460)By: Chaparrita Albrecht DO Comments: Lot #:[id number] date:12/2015Amount given:0.5mlRoute: IMSite given: left deltoidGiven by: CARMELINA Hook DO Chaparrita A ADMINISTRATION OF INFLUENZA VIRUS On: 16-Jan-2014 Intent VACCINE (G0008)By: Chaparrita Albrecht DO, DO, Chaparrita A EKG ([id number])By: Chaparrita Albrecht DO A On: 17-Oct-2013 Intent Ambrocio WOLFF Chaparrita A Comments: ekg showed normal sinus rhythym, left axis, no acute st/t wave changes Radiology - Chest- PA and LatBy: On: 17-Sep-2013 Intent Ambrocio WOLFF Chaparrita A Ambrocio DO, Chaparrita A Aerosol Treatment ([id number])By: Ambrocio On: 17-Sep-2013 Intent Chaparrita WOLFF A Ambrocio DO, Chaparrita A MRI - BrainBy: Ambrocio WOLFF Chaparrita A On: 22-Jul-2013 Intent Ambrocio DO, Chaparrita A Cartoid DopplerBy: Ambrocio DO Chaparrita A On: 20-Jul-2013 Intent Ambrocio WOLFF Chaparrita A MAMMOGRAM, SCREENING, BOTH BREASTS On: 20-Jul-2013 Intent ([id number])By: Chaparrita Albrecht DO DO, Chaparrita A Eprescribed prescriptions On: 20-Jul-2013 Intent ([id number])By: Chaparrita Albrecht DO DO, Chaparrita A Eprescribed prescriptions On: 02-Feb-2013 Intent ([id number])By: Марина Concepcion FLU VAC, SPLIT, >3 YEARS, INTRAMUSC On: 03-Jan-2013 Intent ([id number])By: Марина Concepcion Comments: Lot #:[id number] date:mount given:0.5mlRoute: IMSite given: L dltdVIS and ABN signedGiven by: CARMELINA Hook ADMINISTRATION OF INFLUENZA VIRUS On: 03-Jan-2013 Intent VACCINE (G0008)By: Марина Concepcion CT - Abdomen & Pelvis (IV Contrast On: 17-Oct-2012 Intent Needed)By: Chaparrita Albrecht DO Comments: patient will be calling to set up DO Chaparrita A Eprescribed prescriptions On: 10-Oct-2012 Intent (G8553)By: Марина Concepcion Ear Irrigation ([id number])By: Rome, On: 13-Jun-2012 Intent Ivy Comments: Ear Irrigation performed on: right earAmount/color removed cerumen: light brown, small amount removedOUtcome:Pt toleratedUsed wax curettes Wax Currettes ([id number])By: Rome, On: 13-Jun-2012 Intent Ivy PNEUM VAC ADLT/IMUMNOSPR, SBC/INTRM On: 13-Jun-2012 Intent ([id number])By: Chaparrita Albrecht DO Comments: Lot:[id number]:09/09/13Dose:0.5mLRoute:IMSite:L armGiven By:BHUMI signed Chaparrita WOLFF A EKG ([id number])By: Chaparrita Albrecht DO On: 13-Jun-2012 Intent Chaparrita [...] MAMMOGRAM, SCREENING, BOTH BREASTS On: 28-Dec-2011 Intent ([id number])By: Fast DO, Chaparrita A Fast DO, Chaparrita A DXA, BONE DENSITY, AXIAL SKELETON On: 28-Dec-2011 Intent ([id number])By: Fast DO, Chaparrita A Fast DO, Chaparrita [...] SPLIT, >3 YEARS, INTRAMUSC On: 28-Dec-2011 Intent ([id number])By: Марина Concepcion Comments: Lot #:[id number] date:mount given:0.5mlRoute: IMSite given: left deltoidGiven by: CARMELINA Hook ADMINISTRATION OF INFLUENZA VIRUS On: 28-Dec-2011 Intent VACCINE (G0008)By: Марина Concepcion Aerosol Treatment ([id number])By: Ciesa On: 30-Nov-[address] - Abdomen & PelvisBy: Fast DO, On: 21-Sep-2011 Intent Chaparrita A Fast DO, Chaparrita A Comments: with special cuts through the kidney- october EKG ([id number])By: Марина Concepcion On: 15-Jun-2011 Intent Comments: ekg [...] Comments: Call results to Dr. Albrecht @ [phone] as soon as resulted please. DO, Chaparrita A Eprescribed prescriptions On: 11-Jan-2011 Intent ([id number])By: Fast DO, Chaparrita A Fast DO, Chaparrita A MAMMOGRAM, SCREENING, BOTH BREASTS On: 11-Jan-2011 Intent ([id number])By: Fast DO, Chaparrita A Fast DO, Chaparrita A CT - Sinuses CompleteBy: Fast DO, On: 11-Jan-2011 Intent Chaparrita A Fast DO, Chaparrita A Cartoid DopplerBy: Fast DO, Chaparrita A On: 11-Jan-2011 Intent Fast DO, Chaparrita A ADMINISTRATION OF INFLUENZA VIRUS On: 11-Jan-2011 Intent VACCINE (G0008)By: Марина Concepcion FLU VAC, SPLIT, >3 YEARS, INTRAMUSC On: 11-Jan-2011 Intent ([id number])By: Марина Concepcion Eprescribed prescriptions On: 12-Oct-2010 Intent ([id number])By: Ambrocio DO, Chaparrita A Fast DO, Chaparrita A Renal DopplerBy: Fast DO, Chaparrita A On: 12-Oct-2010 Intent Fast DO, Chaparrita A Cartoid DopplerBy: Fast DO, Chaparrita A On: 12-Oct-2010 Intent Fast DO, Chaparrita A Comments: sept TDAP VACCINE >7 IM ([id number])By: On: 13-May-2010 Intent Helena Tineo LPN Comments: Lot #[id number]-left deltoidgiven by:[facility] EKG ([id number])By: Марина Concepcion On: 13-May-2010 Intent Comments: ekg showed normal sinus rhythym, normal axis, no acute st/t wave changes Aerosol Treatment ([id number])By: Charlene On: 22-Dec-2009 Intent [facility], Johanna Espinal DopplerBy: Fast DO, Chaparrita A On: 01-Dec-2009 Intent Fast DO, Chaparrita A MAMMOGRAM, SCREENING, BOTH BREASTS On: 01-Dec-2009 Intent ([id number])By: Fast DO, Chaparrita A Fast DO, Chaparrita A DXA, BONE DENSITY, AXIAL SKELETON On: 01-Dec-2009 Intent ([id number])By: Fast DO, Chaparrita A Fast DO, Chaparrita A Ultrasound - SpleenBy: Fast DO, On: 17-Jun-2009 Intent Chaparrita A Fast DO, Chaparrita A EKG ([id number])By: Марина Concepcion On: 10-Mar-2009 Intent Comments: ekg showed normal sinus rhythym, normal axis, no acute st/t wave changes FLU VAC, SPLIT, >3 YEARS, INTRAMUSC On: 09-Jan-2009 Intent ([id number])By: Stacy Jorge Comments: Lot #[id number]-left deltoidDose0.5mlgiven by Marycarmen Jorge LPN ADMINISTRATION OF INFLUENZA VIRUS On: 09-Jan-2009 Intent VACCINE (G0008)By: Stacy Jorge MAMMOGRAM, SCREENING, BOTH BREASTS On: 04-Dec-2008 Intent ([id number])By: Fast DO, Chaparrita A Fast DO, Chaparrita A MAMMOGRAM, SCREENING, BOTH BREASTS On: 03-Sep-2008 Intent ([id number])By: Fast DO, Chaparrita A Fast DO, Chaparrita A FLU VAC, SPLIT, >3 YEARS, INTRAMUSC On: 16-Jan-2008 Intent ([id number])By: Janet Scherer RN Comments: Lot #: [id number] date: 09/10Amount given: 0.5 mlRoute: IMSite given: Left deltoidGiven by: Olivia Bell LPN ADMINISTRATION OF INFLUENZA VIRUS On: 16-Jan-2008 Intent VACCINE (G0008)By: Janet Scherer RN EKG ([id number])By: Ambrocio DO, Chaparrita A On: 29-Aug-2007 Intent Fast DO, Chaparrita A Comments: done km ADMINISTRATION OF PNEUMOCOCCAL On: 29-Aug-2007 Intent VACCINE (G0009)By: Fast DO, Chaparrita A Fast DO, Chaparrita A PNEUM VAC ADLT/IMUMNOSPR, SBC/INTRM On: 29-Aug-2007 Intent ([id number])By: Fast DO, Chaparrita A Fast Comments: 0.5cc given im lt arm [id number] 02-13-08 DO, Chaparrita A DXA, BONE DENSITY, AXIAL SKELETON On: 29-Aug-2007 Intent ([id number])By: Fast DO, Chaparrita A Fast DO, Chaparrita A MAMMOGRAM, SCREENING, BOTH BREASTS On: 29-Aug-2007 Intent ([id number])By: Fast DO, Chaparrita A Fast DO, Chaparrita [...] new people and be involved in the [employer] 0 bps are good and sugar looking [...] medical issues: she has been working with [employer] and trying to work on that- she got rid of respiratory infection but was sick for weeks and was on pred so her sugar up and chol up a bit- trying to add protein shakes drink more water- she is starting back at [facility]- diarrhea resolved- we did talk [...] that she had episode where went to [facility] and she couldnt remember where she was- and happened one other time where she didnt recognize the roads- sister had alzheimer s- weight down because was sick- but coming back up- she hasnt done counseling with hospice has been thru before- she lonely- not necessarily unhappy- she doing self help she is singing with [employer]- -rodriguez gars are all in low 100s-130- going to [employer] for a month next monthEncounter Diagnosis: Nonsmoker, [...] Eddie and bp is good she joined [employer] sugar up bit doi ng ice cream-the bone density reviewed little thinner she not exercising routienly until just recent at [employer] and sees kidney doc next week and [...] maribel yfriend in hospice - going to alf end of month- too much to care [...] Patient sleeps 8 hours per night. Nutrition: [facility] diet. The medical issues the patient [...] visual acuity (yearly). Note for Physical exam: [facility] Wellness Physical- Talk about trying Myrbetriq., [ADDITIONAL REASON] Follow up, Laboratory Test Results - Date: (09/2015- [facility] labs). , [ADDITIONAL REASON] Itching - Symptoms [...] stenosis, asymptomatic, right, Hypertension, benign, Colon Polyp, [facility] WELLNESS PHYSICAL, Osteopenia (733.90), Pruritus, Mixed hyperlipidemia [...] Meningioma (Renamed from ABNRM RESULT, FUNCTION STUDY, BRAIN/SOFTWARE IMPLEMENTATION PROJECT MANAGER NEC (794.09)) [facility] [...] Meningioma (Renamed from ABNRM RESULT, FUNCTION STUDY, BRAIN/SOFTWARE IMPLEMENTATION PROJECT MANAGER NEC (794.09)), Diabetes, Type II, controlled [...] cant take byetta [facility]- - takes ??lorazepam 1-2 times a [...] Meningioma (Renamed from ABNRM RESULT, FUNCTION STUDY, BRAIN/SOFTWARE IMPLEMENTATION PROJECT MANAGER NEC (794.09)), Colon Polyp [facility] [...] Meningioma (Renamed from ABNRM RESULT, FUNCTION STUDY, BRAIN/SOFTWARE IMPLEMENTATION PROJECT MANAGER NEC (794.09)), OCCLUSION AND STENOSIS OF [...] Meningioma (Renamed from ABNRM RESULT, FUNCTION STUDY, BRAIN/SOFTWARE IMPLEMENTATION PROJECT MANAGER NEC (794.09)), Chronic glomerulonephritis with lesion [...] Meningioma (Renamed from ABNRM RESULT, FUNCTION STUDY, BRAIN/SOFTWARE IMPLEMENTATION PROJECT MANAGER NEC (794.09)), Other and unspecified hyperlipidemia [...] Meningioma (Renamed from ABNRM RESULT, FUNCTION STUDY, BRAIN/SOFTWARE IMPLEMENTATION PROJECT MANAGER NEC (794.09)) [facility] [...] Meningioma (Renamed from ABNRM RESULT, FUNCTION STUDY, BRAIN/SOFTWARE IMPLEMENTATION PROJECT MANAGER NEC (794.09)), Gerd (530.81), Hyperlipidemia, Unspecified [...] Meningioma (Renamed from ABNRM RESULT, FUNCTION STUDY, BRAIN/SOFTWARE IMPLEMENTATION PROJECT MANAGER NEC (794.09)), Hypertension,benign(401.1), OCCLUSION AND STENOSIS [...] Meningioma (Renamed from ABNRM RESULT, FUNCTION STUDY, BRAIN/SOFTWARE IMPLEMENTATION PROJECT MANAGER NEC (794.09)), Diabetes, Type II, controlled [...] Meningioma (Renamed from ABNRM RESULT, FUNCTION STUDY, BRAIN/SOFTWARE IMPLEMENTATION PROJECT MANAGER NEC (794.09)), Hypertension,benign(401.1), Osteopenia (733.90), Depression [...] weight down 23 pounds- and trying joined [employer]- she feels well - she increased celexa [...] Meningioma (Renamed from ABNRM RESULT, FUNCTION STUDY, BRAIN/SOFTWARE IMPLEMENTATION PROJECT MANAGER NEC (794.09)), Chronic glomerulonephritis with lesion [...] Meningioma (Renamed from ABNRM RESULT, FUNCTION STUDY, BRAIN/SOFTWARE IMPLEMENTATION PROJECT MANAGER NEC (794.09)) End: 26-Jan-2011 16:53 [facility] Office Visit On: 19-Jan-2011 14:30 Encounter Diagnosis: brain tumor End: 21-Sep-2011 8:09 [facility] Phone Encounter On: 19-Jan-2011 13:41 Encounter Diagnosis: ABNRM RESULT, FUNCTION STUDY, BRAIN/SOFTWARE IMPLEMENTATION PROJECT MANAGER NEC (794.09) End: 19-Jan-2011 13:44 [facility] [...] again -- she is getting surgery on [facility]-- her bps have been running [...] Degenerative Disc Disease - Lumbar (722.52), [facility] [place] [facility] [...] WITH RADICULOPATHY (724.4) [facility] Payers MedicareAA/[facility]; olivia guarantor
--- OUTSIDE RECORDS SUMMARY | 2018-06-25 22:16 | XMS RPT_ITS | Continuity of Care Document ---
:1940 Author Organization [facility] Address [address] [place] [address] Phone Care Team Providers Name Role Phone [...] Knee pain, unspecified laterality (719.46) Comments: Valorie:lot: [id number]: 09/20site/route: L knee Status: Active Leg pain, [...] days Quantity: 90 {Tablet} Refills: 3 Ordered:14-Feb-2018 DO, Chaparrita AFkaren DO, Chaparrita A Start : 14-Feb-2018 [...] 90 {Tablet} Refills: 3 Ordered:28-Jun-2017 , Chaparrita Saxena DO, Chaparrita A Start : 28-Jun-2017 Active Comments:Dr. Angelo disla Coreg 25 MG Oral Tablet 1/2 Tablet bid for 0 days Quantity: 90 {Tablet} Refills: 3 Ordered:17-Nov-2017 , Chaparrita Saxena DO, Chaparrita A Start : 17-Nov-2017 Active FreeStyle Lite Test In Vitro Strip 1 (one) Strip bid for 0 days Quantity: 100 {Strip} Refills: 5 Ordered:20-Feb-2018 , Chaparrita Saxena DO, Chaparrita A Start : 20-Feb-2018 Active Comments:Dx:250.00patient is NOT insulin dependant Hydrocodone-Acetaminophen 5-325 MG Oral Tablet 1 to 2 Tablet q 6hrs, prn for 0 days Quantity: 60 {Tablet} Refills: 0 Ordered:16-Dec-2017 , Chaparrita ENGLE , Chaparrita A Start : 16-Dec-2017 Active Myrbetriq 50 MG Oral Tablet Extended Release 24 Hour 1/2 -1 Tablet ER 24HR qhs for 0 days Quantity: 14 {Tablet} Refills: 0 Ordered:06-Jun-2017 , Chaparrita Saxena DO, Chaparrita A Start : 06-Jun-2017 Active PROVENTIL HFA, 108 (90 Base)MCG/ACT (Inhalation Aerosol Solution) 2 (two) Puff(s) tid prn for 0 days Quantity: 1 {Inhaler} Refills: 0 Ordered:17-Sep-2013 , Chaparrita , Chaparrita A Start : 17-Sep-2013 Active Comments:rinse mouth after use SYMBICORT, 160-4.5MCG/ACT (Inhalation Aerosol) 2 (two) Aerosol Aerosol bid for 30 days Quantity: 1 {Inhaler} Refills: 3 Ordered:28-Sep-2013 Марина Concepcion Start : 28-Sep-2013 Active TraZODone HCl 150 MG Oral Tablet 1 tab Tablet qd for 0 days Quantity: 90 {Tablet} Refills: 3 Ordered:22-Aug-2017 , Chaparrita ENGLEkaren , Chaparrita A Start : 22-Aug-2017 Active Trulicity 1.5 MG/0.5ML Subcutaneous Solution Pen-injector 1 (one) Milligram q week for 0 days Quantity: 3 {Milligram} Refills: 0 Ordered:22-Mar-2018 Chaparrita Albrecht DO, DO, Chaparrita A Start : 22-Mar-2018 Active Comments:[id number] 09/20 Victoza 18 MG/3ML Subcutaneous Solution Pen-injector [...] days Quantity: 60 {Capsule} Refills: 0 Ordered:22-Mar-2018 Chaparrita Albrecht DOkaren Chaparrita Baker Start : 22-Mar-2018 Active Aricept 5 MG [...] {Capsule} Refills: 0 Ordered:06-Jun-2017 Chaparrita Albrecht DOkaren Chaparrita A Start : 05-May-2017 End : 06-Jun-2017 Inactive BIAXIN XL PAC, 500MG (Oral Tablet Extended Release 24 Hour) 2 (two) Tablet ER 24HR daily for 14 days Quantity: 28 {Tablet_ER_24HR} Refills: 0 Ordered:16-Feb-2010 Johanna Chang CNP E Start : 01-Jan-2010 End : 15-Jan-2010 Inactive [...] spray daily for 0 days Quantity: 1 {[place]} Refills: 0 Ordered:04-May-2016 SHONDA Andrade Start : [...] and dispense 8 ounes TOTAL mixed solutionCal [id number] if questions SPECTAZOLE, 1% (External Cream) 1 [...] days Quantity: 60 {Tablet} Refills: 1 Ordered:17-Jan-2012 Chaparrita Albrecht DO, DO, Debra A Start : 17-Jan-2012 End : 01-Nov-2012 [...] Refills: 3 Ordered:14-Jul-2015 Case Albrecht DOa AFast Chaparrita WOLFF A Start : 14-Jul-2015 End : 14-Jul-2015 [...] End : 11-Feb-2015 Discontinued Comments:th[age], called to [facility] 08-30-14 erusydney Allergies and Adverse Reactions Name Dates Details [...] 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 2016 right Cholecystectomy Completed lumbar oascle==3665 Completed Tonsillectomy Completed Date Value Details 19-Dec-2017 Echocardiogram Complete Result: Comments: See Note; NOTES: [facility] Cardiovascular Services [address] [place] [address] Echo Complete 12/19/17 0800 MR#: [id number] Acct: [id number] Name: CLARENCE ALBERT ep #: [id number] : 1940 77 From: Chuckie Cormier MD Attending Dr: Chaparrita Albrecht DO Status: REG CLI Ordering Dr: Chaparrita Albrecht DO Date: 12/19/17 Location: [facility] Sex: F C Admitted: Reason For [...] 12/19/17 0800 Date Transcribed: 12/19/17 1022 Manager Sterile: Signed 07-Dec-2017 Carotid Duplex Ultrasound Result: Comments: See Note; NOTES: [facility] Cardiovascular Services [address] [place] [address] Carotid Duplex Ultrasound 12/06/17 0901 MR#: [id number] Acct: [id number] Name: CLARENCE WHITTINGTON Rep #: [id number] : 1940 77 From: Anurag Loya MD [...] the left vertebral artery. Procedure Carotid Duplex 58581. Exam performed in department. Interpretation Summary Mild (<50%) stenosis right extracranial internal carotid. Mild (<50%) stenosis left extracranial internal carotid. Flow within the vertebral arteries is antegrade bilaterally. __ __ Ordering Physician: Chaparrita Albrecht Performed By: Margot Benton RVT and Student 12/07/17 0809 Date Anurag Loya MD CC: Chaparrita Albrecht DO Date Dictated: 12/06/17900 Date Transcribed: 12/07/17808 Manager Sterile: Signed 06-Dec-2017 SCREENING MAMM (CAD), BILAT Result: Comments: See Note; NOTES: [facility] Imaging Services [address] [place] [address] SCREENING MAMM (CAD), BILAT MR#: [id number] Acct: [id number] Name: CLARENCE ALBERT Rep #: [id number] : 1940 F 77 From: Misael Hebert MD PCP: Chaparrita Albrecht DO Status: REG CLI Study: SCREENING MAMM (CAD), BILAT Date of Exam: 12/06/17 Exam# [id number] Ordering Dr: Chaparrita Albrecht DO MAMM OGRAPHY [...] delay biopsy of a clinically suspicious abnormality. [id number] Electronically Signed: Misael Hebert MD at 15:31 EDT Tel [phone], Se rvice support , CC: Chaparrita Albrecht DO Manager Sterile: Signed 10-Jun-2017 Brain W/WO Contrast Result: Comments: See Note; NOTES: [facility] Imaging Services [address] [place] [address] Brain W/WO Contrast MR#: [id number] Acct: [id number] Name: CLARENCE ALBERT Rep #: [id number] : 1940 F 77 From: Laya Montilla MD PCP: Chaparrita Albrecht DO Status: REG CLI Study: Brain W/WO Contrast Date of Exam: 06/10/17 Exam# [id number] Ordering Dr: Chaparrita Albrecth DO STUDY: MRI BRAIN WITH AND W [...] support , CC: Chaparrita Albrecht DO Manager Sterile: Signed 05-May-2017 Chest PA and Lateral Result: Comments: See Note; NOTES: [facility] Imaging Services [address] [place] [address] Chest PA and Lateral MR#: [id number] Acct: [id number] Name: CLARENCE ALBERT Rep #: [id number] : 1940 F 77 From: Edwar Patino MD PCP: Chaparrita Albrecht DO Status: REG CLI Study: Chest PA and Lateral Date of Exam: 05/05/17 Exam# [id number] Ordering Dr: Keri Singh MD STUDY: X-RAY [...] Keri Singh MD; Chaparrita Albrecht DO Manager Sterile: Signed 02-Nov-2016 Dexa Bone Density Study (HP) Result: Comments: See Note; NOTES: [facility] Imaging Services [address] [place] [address] Verdana 4d Dexa Bone Density Study (HP) MR#: [id number] Acct: [id number] Name: LYNNE ALBERT Rep #: [id number] : 1940 F 76 From: Misael Hebert MD PCP: Chaparrita Albrecht DO Status: REG CLI Study: Dexa Bone Density Study (HP) Date of Exam: 11/02/16 Exam# [id number] Ordering Dr: Laura DO STUDY: DUAL ENERGY [...] Misael Hebert MD at 11:02 EDT Tel [phone], Service support , CC: Chaparrita Albrecht DO Manager Sterile: Signed 02-Nov-2016 SCREENING MAMM (CAD), BILAT Result: Comments: See Note; NOTES: [facility] Imaging Services [address] [place] [address] Verdana 4d SCREENING MAMM (CAD), BILAT MR#: [id number] Acct: [id number] Name: CLARENCE ALBERT Rep #: [id number] : 1940 F 76 From: Misael Hebert MD PCP: Chaparrita Albrecht DO Status: [facility] CL Study: SCREENING MAMM (CAD), BILAT Date of Exam: 11/02/16 Exam# [id number] Ordering Dr: Case Albrecht DO MAMMOGRAPHY - [...] delay biopsy of a clinically suspicious abnormality. [id number] Electronically Signed: Misael Hebert MD at 12:44 EDT Tel [phone], Service support , CC: Chaparrita Albrecht DO Manager Sterile: Signed 05-Aug-2016 Venous Duplex Lower Extremity Result: Comments: See Note; NOTES: [facility] Cardiovascular Services [address] [place] [address] Venous Duplex US, Unilateral 08/05/16 1053 MR#: [id number] Acct: [id number] Name: CLARENCE WEI Rep #: [id number] : 1940 76 From: Elvin Natarajan MD [...] Dictated: 08/05/16 1053 Date Transcribed: 08/05/16 112 Manager Sterile: Signed 27-May-2016 Knee 4 or More Views Result: Comments: See Note; NOTES: [facility] Imaging Services [address] [place] [address] Verdana 4d Knee 4 or More Views MR#: [id number] Acct: [id number] Name: CLARENCE ALBERT Rep #: [id number] : 1940 F 76 From: Misael Hebert MD PCP: Chaparrita Albercht DO Status: REG CLI Study: Knee 4 or More Views Date of Exam: 05/27/16 Exam# [id number] Ordering Dr: Kylah Linda UDY: X-RAY - [...] MD at 10:41 EST , Service support [phone], CC: Chaparrita Albrecht DO; Kylah Linda DO Manager Sterile: Signed 13-May-2016 Sinus/Facial Bone Result: Comments: See Note; NOTES: [facility] Imaging Services [address] [place] [address] Verdana 4d Sinus/Facial Bone MR#: [id number] Acct: [id number] Name: CLARENCE ALBERT Rep #: [id number] : 1940 F 76 From: Godwin Winter MD PCP: Chaparrita Albrecht DO Status: REG CLI Study: Sinus/Facial Bone Date of Exam: 05/13/16 Exam# [id number] Ordering Dr: Alejandro Silverman MD STUDY: CT [...] MD at 7:35 EST , Service support [phone], CC: Chaparrita Albrecht DO; Alejandro Silverman MD Manager Sterile: Signed 21-Apr-2016 Emergency Department Summary Result: Comments: See Note; NOTES: [facility] Medical Records Department [address] [place] [address] Emergency Department Summary MR#: [id number] Acct: [id number] Name: CLARENCE ALBERT Rep #: [id number] : 1940 76 From: Carissa Murphy MD [...] epistaxis. CARISSA MURPHY MD T: NTS JOB: [id number] 04/21/16805 <Electronically signed by Carissa Murphy MD> Date Carissa donovan MD Cosigner Signature (If Indicated): Date CC: Chaparrita Albrecht DO Date Dictated: 04/20/161711 Date Transcribed: 04/20/161711 Manager Sterile: Signed 20-Apr-2016 Discharge Instruction Result: Comments: See Note; NOTES: [facility] Medical Records Department [address] [place] [address] Discharge Instruction 04/20/16 1303 MR#: [id number] Acct: [id number] Name: CLARENCE ALBERT Rep #: [id number] : 1940 76 From: Carissa Murphy MD [...] your Primary Care Provider. Call [facility] ([phone]) or report to the closest Emergency Room. Call 911 if necessary. 04/20/16 1645 <Electronically signed by Carissa Murphy MD> Date Carissa Murphy MD Cosigner Signature (If I ndicated): Date CC: Chaparrita Albrecht DO 02-Nov-2015 Carotid Duplex Ultrasound Result: Comments: See Note; NOTES: [facility] Cardiovascular Services [address] [place] [address] Carotid Duplex Ultrasound 10/30/15 1100 MR#: [id number] Acct: [id number] Name: CLARENCE ALBERT Rep #: [id number] : 1940 75 From: Elvin Natarajan MD [...] the left vertebral artery. Procedure Carotid Duplex 43604. The exam was diagnostic. Exam performed in [...] 10/30/15 1100 Date Transcribed: 11/02/15 1143 Manager Sterile: Signed 30-Oct-2015 Bilat Scrn Digital AND CAD Result: Comments: See Note; NOTES: [facility] Imaging Services [address] [place] [address] Verdana 4d Bilat Scrn Digital AND CAD MR#: [id number] Acct: [id number] Name: CLARENCE ALBERT Rep #: [id number] : 1940 F 75 From: Andres Brady MD PCP: Chaparrita Albrecht DO Status: REG CLI Study: Saad Jaffe Digital AND CAD Date of Exam: 10/30/15 Exam# [id number] Ordering Dr: Chaparrita Albrecht DO MAMMOGRAPHY - [...] biop sy of a clinically suspicious abnormality. [id number] Electronically Signed: Andres Brady MD at 17:48 EDT Tel , Service support [phone], CC: Chaparrita Albrecht DO Manager Sterile: Signed 30-Oct-2015 Bilat Scrn Digital AND CAD Result: Comments: See Note; NOTES: [facility] Imaging Services [address] [place] [address] Verdana 4d Bilat Scrn Digital AND CAD MR#: [id number] Acct: [id number] Name: CLARENCE ALBERT Rep #: [id number] : 1940 F 75 From: Andres Brady MD PCP: Chaparrita Albrecht DO Status: REG CLI Study: Bilat Scrn Digital AND CAD Date of Exam: 10/30/15 Exam# [id number] Ordering Dr: Chaparrita Albrecht DO MAMMOGRAPHY - [...] are identified. CC: Chaparrita Albrecht DO Manager Sterile: Signed 22-Oct-2015 ELECTROCARDIOGRAM, COMPLETE (ECG) (25238) Comments: ekg showed normal sinus rhythym, normal axis, no acute st/t wave changes no change Result: [MEASUREMENTS ANALYSIS] Date of Test: 10/22/2015 14:41:29; Heart Rate: 71; IN Interval: 140; QRS: 94; QT Interval: 384; Corrected QT Interval (QTc): 403; P Wave [place]: 58; QRS Wave [place]: -3; T Wave [place]: 56; Blood Pressure: 128/76 [ECG DIAGNOSTIC STATEMENTS] Date of Test: 10/22/2015 14:41:29; Summary: Sinus Rhythm Low voltage -possible pulmonary disease. ABNORMAL 22-Jul-2015 Kidney and Bladder Result: Comments: See Note; NOTES: [facility] Imaging Services [address] [place] [address] Verdana 4d Kidney and Bladder MR#: [id number] Acct: [id number] Name: BETYYaniv GAGAN Mandujano Rep #: [id number] : 1940 F 75 From: Nir Sanchez MD PCP: Chaparrita Albrecht DO Status: REG CLI Study: Kidney and Bladder Date of Exam: 07/22/15 Exam# [id number] Ordering Dr: Chaparrita Albrecht DO STUDY: RENAL [...] at 4:59 EDT Tel , Service support [phone], CC: Chaparrita Alrbecht DO Manager Sterile: Signed 11-Mar-2015 Knee 4 or More Views Result: Comments: See Note; NOTES: [facility] Imaging Services [address] [place] [address] Verdana 4d Knee 4 or More Views MR#: [id number] Acct: [id number] Name: CLARENCE ALBERT Nazia Rep #: [id number] : 1940 F 74 From: Trent Cameron DO PCP: Chaparrita Albrecht DO Status: REG CLI Study: Knee 4 or More Views Date of Exam: 03/11/15 Exam# [id number] Ordering Dr: Case Albrecht DO STUDY: X-RAY [...] at 7:45 EST Tel , Service support [phone], RAD/Knee 4 or More Views IMPRESSION: Degener ative changes within the knee. No acute fracture. Small suprapatellar effusion. Electronically Signed: Trent Cameron DO at 7:45 EST Tel , Service support [phone], CC: Chaparrita Albrecht DO Manager Sterile: Signed 11-Mar-2015 Knee 4 or More Views Result: Comments: See Note; NOTES: [facility] Imaging Services [address] [place] [address] Verdana 4d Knee 4 or More Views MR#: [id number] Acct: [id number] Name: CLARENCE ALBERT Nazia Rep #: [id number] : 1940 F 74 From: Trent Cameron DO PCP: Chaparrita Albrecht DO Status: REG CLI Study: Knee 4 or More Views Date of Exam: 03/11/15 Exam# [id number] Ordering Dr: Case Albrecht DO STUDY: X-RAY [...] at 7:46 EST Tel , Service support [phone], RAD/Knee 4 or More Views IMPRESSION: Mild degenerative changes. No acute bony abnormality. Electronically Signed: Trent Cameron DO at 7:46 EST Tel , Service support [phone], CC: Chaparrita Albrecht DO Manager Sterile: Signed 18-Oct-2014 Carotid Duplex Ultrasound Result: Comments: See Note; NOTES: [facility] Cardiovascular Services [address] [place] [address] Carotid Duplex Ultrasound 10/18/14 1331 MR#: [id number] Acct: [id number] Na me: CLARENCE ALBERT Rep #: [id number] : 1940 74 From: Elvin Natarajan MD [...] the left vertebral artery. Procedure Carotid Duplex 15094. The exam was diagnostic. Exam performed in [...] 10/18/14 1331 Date Transcribed: 10/18/14 1616 Manager Sterile: Signed 18-Oct-2014 Bilat Scrn Digital AND CAD Result: Comments: See Note; NOTES: [facility] Imaging Services [address] [facility] [place] [address] Breast Imaging Report MR#: [id number] Acct: [id number] Name: CLARENCE ALBERT Rep #: [id number] : 1940 F 74 From: Misael Hebert MD PCP: Chaparrita Albrecht DO Status: REG CLI Study: Saad Jaffe Digital AND CAD Date of Exam: 10/18/14 Exam# [id number] Ordering Dr: Chaparrita Albrecht DO MAMMOGRAPHY - [...] Misael redmond MD at 13:44 EDT Tel [phone], Service support [phone], CC: Chaparrita Albrecht DO Manager Sterile: Signed 09-Jul-2014 Dexa Bone Density Study (HP) Result: Comments: See Note; NOTES: [facility] Imaging Services [address] [place] [address] Bone Density Report MR#: [id number] Acct: [id number] Name: CLARENCE ALBERT Rep #: [id number] : 1940 F 74 From: Misael Hebert MD PCP: Chaparrita Albrecht DO Status: REG CLI Study: Dexa Bone Density Study (HP) Date of Exam: 07/09/14 Exam# [id number] Ordering Dr: Chaparrita Albrecht DO STUDY: DUAL [...] Angel Hebert MD at 14:55 EDT Tel [phone], Service support [phone], CC: Chaparrita Albrecht DO Manager Sterile: Signed 17-Sep-2013 Chest PA and Lateral Result: Comments: See Note; NOTES: [facility] Imaging Services [address] [place] [address] Radiology Report MR#: [id number] Acct: [id number] Name: CLARENCE ALBERT Rep #: [id number] : 1940 F 73 From: David Bennett MD PCP: Chaparrita Albrecht DO Status: REG CLI Study: Chest PA and Lateral Date of Exam: 09/17/13 Exam# [id number] Ordering Dr: Chaparrita Albrecht DO STUDY: X-RAY [...] MD at 20:44 EDT , Service support [phone], RAD/Chest PA and Lateral IMPRESSION: No focal infiltrate or edema. Electronic ally Signed: David Bennett MD at 20:44 EDT , Service support [phone], CC: Chaparrita Albrecht DO Manager Sterile: Signed 17-Sep-2013 Spirometry (87106) Result: 29-Aug-2013 Carotid Duplex Ultrasound Result: Comments: See Note; NOTES: [facility] Cardiovascular Services [address] [place] [address] Carotid Duplex Ultrasound 08/24/13 0939 MR#: [id number] Acct: [id number] Chalo e: CLARENCE ALBERT Rep #: [id number] : 1940 73 From: Anurag Loya MD Attending Dr: Chaparrita Albrecht DO Status: REG CLI Ordering Dr: Chaparrita Albrecht DO Date: 08/24/13 Location: [facility] Sex: F C Admitted: Rt. Velocities/BP [...] in the left bulb. Procedure Carotid Duplex 21828. Exam perfor med in department. Interpretation Summary Mild (<50%) stenosis right extracranial internal carotid. Mild (<50%) stenosis left extracranial internal carotid. Flow within the vertebra l arteries is antegrade bilaterally. Ordering Physician: Chaparrita Albrecht Performed By: Kendal Benton RVT : Chaparrita Albrecht DO Date Dictated: 08/24/1339 Date Transcribed: 08/29/13 1118 Manager Sterile: Signed Immunization Name Dates Details Influenza (3 years and up) on: 16-Jan-2008 Comments: Lot #: [id number] date: 09/10Amount given: 0.5 mlRoute: IMSite given: Left deltoidGiven by: Olivia Bell LPN Influenza (3 years and up) on: 09-Jan-2009 Comments: Lot #[id number]-left deltoidDose0.5mlgiven by Marycarmen Jorge LPN Pneumococcal (2 years and up) on: 29-Aug-2007 Comments: 0.5cc given im lt arm dsg1993s exp 02-13-08 Family History Unknown Family Member [...] kg/m2 Body Surface Area Calculated 1.74 m2 85-Jin-304070:12 Pulse 70 /min Comments: Pattern: Regular Respiration [...] copy of this report has been sent [phone].PATIENT WAS FASTINGPERFORMED BY: [facility] [facility] [id number] Alb/Creat Ratio 4475.5 {mg/g_creat} (Abnormal) Range: 0.0-30.0 Comments: Normal: 0.0 - 30.0 Albuminuria: 31.0 - 300.0 Clinical albuminuria: >300.0 Albumin, Urine 2085.6 ug/mL (Normal) Comments: Results confirmed ondilution. Creatinine, Urine 46.6 mg/dL (Normal) 06-Mar-20189:33 CBC With Differential/Platelet Comments: A courtesy copy of this report has been sent [phone].PATIENT WAS FASTINGPERFORMED BY: [facility] Xfgccd5529 [facility] [id number] Information: ADD CBC Immature Grans (Abs) 0.0 [...] copy of this report has been sent [phone].PATIENT WAS FASTINGPERFORMED BY: [facility] [id number] :33 Range: 1.6-2.3 :33 Microscopic Examination Comments: A courtesy copy of this report has been sent [phone].PATIENT WAS FASTINGPERFORMED BY: [facility] [facility] [place] [id number] Bacteria Few (Normal) Mucus Threads Present (Normal) Epithelial Cells (non 0-10 {/hpf} Range: 0 - 10 renal) (Normal) RBC 0-2 {/hpf} (Normal) Range: 0 - 2 WBC 0-5 {/hpf} (Normal) Range: 0 - 5 : PTH, Intact 29 pg/mL (Normal) Comments: A courtesy copy of this report has been sent [phone].PATIENT WAS FASTINGPERFORMED BY: [facility] [facility] [place] [id number] 33 Range: 15-65 :33 Renal Panel (10) Comments: A courtesy copy of this report has been sent [phone].PATIENT WAS FASTINGPERFORMED BY: [facility] [facility] [place] [id number] Phosphorus 4.0 mg/dL (Normal) Range: 2.5-4.5 :33 Vitamin D Hydroxy (43364) Comments: A courtesy copy of this report has been sent [phone].PATIENT WAS FASTINGPERFORMED BY: [facility] [facility] [place] [id number] Vitamin D, 25-Hydroxy 36.8 ng/mL (Normal) Range: 30.0-100.0 Comments: Vitamin D deficiency has been defined by the Carbon ofMedicine and an Endocrine Society practice guideline as alevel of serum 25-OH vitamin D less than 20 ng/mL (1,2).The Endocrine Society went on to further define vitamin Dinsufficiency as a level between 21 and 29 ng/mL (2).1. IOM (Carbon of Medicine). 2010. Dietary reference intakes for calcium and D. [place]: The National Academies Press.2. Mira MF, Rosette LOPEZ, Tommy SWAIN, et al. Evaluation, treatment, and prevention of vitamin D deficiency: an Endocrine Society clinical practice guideline. JCEM. 2010; 96(7):1911-30. :33 URINALYSIS, W/ MICRO (72434) Comments: A courtesy copy of this report has been sent [phone].PATIENT WAS FASTINGPERFORMED BY: [employer] [place] [id number] Microscopic Examination See below: (Normal) Comments: Microscopic was indicated and was performed. Nitrite, Urine Negative (Normal) Urobilinogen,Semi-Qn 0.2 mg/dL (Normal) Range: 0.2-1.0 Bilirubin Negative (Normal) Occult Blood Negative (Normal) Ketones Negative (Normal) Glucose Negative (Normal) Protein 3+ (Abnormal) WBC Esterase Negative (Normal) Appearance Clear (Normal) Urine-Color Yellow (Normal) pH 5.5 (Normal) Range: 5.0-7.5 Specific [place] 1.012 (Normal) Range: 1.005-1.030 :33 LIPID PANEL (93180) Comments: A courtesy copy of this report has been sent [phone].PATIENT WAS FASTINGPERFORMED BY: [employer] [employer] [place] [id number] LDL/HDL Ratio 1.4 {ratio} (Normal) Range: 0.0-3.2 [...] copy of this report has been sent [phone].PATIENT WAS FASTINGPERFORMED BY: [facility] RehabilitationTwhisg27[facility] [id number] (48303) ALT (SGPT) 11 [iU]/L (Normal) Range: 0-32 [...] 8-27 Glucose 162 mg/dL (Abnormal) Range: 65-99 67-Qgn-855130:24 HgA1C , Office (85703) HgA1C , Office 6.5 % (Normal) Range: 4.6 - 7.1 :33 HGB A1C (84515) Comments: A courtesy copy of this report has been sent [phone].PATIENT WAS FASTINGPERFORMED BY: [facility] [facility] [id number] Hemoglobin A1c 6.3 % (Abnormal) Range: 4.8-5.6 Comments: . Prediabetes: 5.7 - 6.4 Diabetes: >6.4 Glycemic control for adults with diabetes: <7.0 :14 LIPID PANEL (03683) Comments: PATIENT WAS FASTINGPERFORMED BY: [facility] [facility] [id number] LDL/HDL Ratio 1.1 {ratio} (Normal) Range: 0.0-3.2 [...] (Normal) Range: 100-199 :14 Vitamin D Hydroxy (70114) Comments: PATIENT WAS FASTINGPERFORMED BY: [facility] [facility] [id number] Vitamin D, 25-Hydroxy 37.8 ng/mL (Normal) Range: 30.0-100.0 Comments: Vitamin D deficiency has been defined by the Carbon ofMedicine and an Endocrine Society practice guideline as alevel of serum 25-OH vitamin D less than 20 ng/mL (1,2).The Endocrine Society went on to further define vitamin Dinsufficiency as a level between 21 and 29 ng/mL (2).1. IOM (Carbon of Medicine). 2010. Dietary reference intakes for calcium and D. [place]: The National Academies Press.2. Mira MF, Rosette LOPEZ, Tommy SWAIN, et al. Evaluation, treatment, and prevention of vitamin D deficiency: an Endocrine Society clinical practice guideline. JCEM. 2010; 96(7):1911-30. 5-:14 CBC with auto diff (58961) Comments: PATIENT WAS FASTINGPERFORMED BY: [facility]6370 [facility] [id number] Immature Grans (Abs) 0.0 {x10E3/uL} (Normal) Range: [...] COMPREHENSIVE Comments: PATIENT WAS FASTINGPERFORMED BY: [facility] [id number] (82249) ALT (SGPT) 10 [iU]/L (Normal) Range: 0-32 [...] 8-27 Glucose 142 mg/dL (Abnormal) Range: 65-99 59-Ybs-91058:40 MICROALBUMIN: CREATININE RATIO Comments: PATIENT WAS FASTINGPERFORMED BY: [facility] [id number] (96820) AND (40500) Alb/Creat Ratio 4213.3 {mg/g_creat} (Abnormal) Range: 0.0-30.0 Albumin, Urine 3206.3 ug/mL (Normal) Comments: Results confirmed ondilution. Creatinine, Urine 76.1 mg/dL (Normal) 17-Gpp-04018:40 CBC & PLATELETS (AUTO) (75422) Comments: please fax to Dr. Austin- [phone]; PATIENT WAS FASTINGPERFORMED BY: [employer] BoxCat [facility] CenterFriendsigniaW[facility] [id number] Platelets 148 {x10E3/uL} (Abnormal) Range: 150-379 RDW 14.8 % (Normal) Range: 12.3-15.4 MCHC 33.6 g/dL (Normal) Range: 31.5-35.7 MCH 29.7 pg (Normal) Range: 26.6-33.0 MCV 89 fL (Normal) Range: 79-97 Hematocrit 36.9 % (Normal) Range: 34.0-46.6 Hemoglobin 12.4 g/dL (Normal) Range: 11.1-15.9 RBC 4.17 {x10E6/uL} (Normal) Range: 3.77-5.28 WBC 4.7 {x10E3/uL} (Normal) Range: 3.4-10.8 94-Hpr-82674:40 RENAL FUNCTION PANEL Comments: please fax to Dr. Austin- [phone]; PATIENT WAS FASTINGPERFORMED BY: [facility] [id number] Information: [id number] FX DR. SANTANA (59518) Albumin 3.1 g/dL (Abnormal) Range: 3.5-4.8 Phosphorus [...] 133 mg/dL (Abnormal) Range: 65-99 :40 MAGNESIUM (08031) Comments: please fax to Dr. Austin- [phone]; PATIENT WAS FASTINGPERFORMED BY: [facility] [id number] Magnesium 1.9 mg/dL (Normal) Range: 1.6-2.3 :40 CALCIFEDIOL (85464) Comments: please fax to Dr. Austin- [phone]; PATIENT WAS FASTINGPERFORMED BY: LabCoKessler Institute for RehabilitationOpahtr5236 [facility] [id number] Vitamin D, 25-Hydroxy 29.4 ng/mL (Abnormal) Range: 30.0-100.0 Comments: Vitamin D deficiency has been defined by the Carbon ofMedicine and an Endocrine Society practice guideline as alevel of serum 25-OH vitamin D less than 20 ng/mL (1,2).The Endocrine Society went on to further define vitamin Dinsufficiency as a level between 21 and 29 ng/mL (2).1. IOM (Carbon of Medicine). 2010. Dietary reference intakes for calcium and D. [place]: The National Academies Press.2. Mira MF, Rosette NC, Tommy SWAIN, et al. Evaluation, treatment, and prevention of vitamin D deficiency: an Endocrine Society clinical practice guideline. JCEM. 2010; 96(7):1911-30. :40 PARATHORMONE (12605) Comments: please fax to Dr. Austin- [phone]; PATIENT WAS FASTINGPERFORMED BY: LabCoRehabilitation Hospital of Southern New MexicoZgopwc3687 [facility] [id number] PTH, Intact 22 pg/mL (Normal) Range: 15-65 :30 COLON BIOPSY (CHOOSE See Note (Normal) Comments: [facility] [address] [place], [address] SITE) Comments: Patient: CLARENCE ALBERT : 1940 (77/F) Acct Num: [id number] Phys: Marcus Caldera Unit Num: [id number] Loc: LABSPEC Specimen: [id number] Received: 09/16/17 - 1529 Spec Type: C OLON BX TISSUES [...] one cassette. / MARCY:dustin 09/19/17 TC:1 CPT: 44768 x2 HEADER OPERATION: Colonoscopy PRE-OP DIAGNOSIS: History of polyps TISSUE SUBMITTED: A Proximal sigmoid polyp, rule out adenoma, B Transversecolon, rule out adenoma MICROSCOPIC DESCRIPTION Slides are reviewed. M ICROSCOPIC DIAGNOSIS A. Proximal sigmoid polyp, biopsy: Fragments of tubular adenoma. B. Transverse colon polyp, biopsy: Fragments of tubular adenoma. MARCY:dustin 09/20/17 Signed _ Nacho Ardon 09/20/17 <signature on file> 99-Aat-59864:24 METABOLIC PANEL, COMPREHENSIVE Comments: PATIENT NOT FASTINGPERFORMED BY: LabCoKessler Institute for RehabilitationLrrldw4652 [facility] [id number] (18653) ALT (SGPT) 14 [iU]/L (Normal) Range: 0-32 [...] (Abnormal) Range: 65-99 :07 HgA1C , Office (71541) HgA1C , Office 7.2 % (Abnormal) Range: 4.6 - 7.1 :37 Clostridium difficile Toxin Comments: PATIENT NOT FASTINGPERFORMED BY: [facility] [id number] A+B, EIA (41010) C difficile Toxins A+B, EIA Negative (Normal) :37 LEUKOCYTE COUNT, FECAL (74518) Comments: PATIENT NOT FASTINGPERFORMED BY: [employer]70 N2N CommerceWakeMed Cary Hospital [id number] Result 1 NWBC (Normal) Comments: No white blood cells seen. White Blood Cells (WBC), Final report (Normal) Stool :37 OVA & PARASITE DIR SMEAR Comments: PATIENT NOT FASTINGPERFORMED BY: [employer]70 EventKloudBlue Ridge Regional Hospital [id number] (40809) Result 1 NOCP (Normal) Comments: No ova, cysts, or parasites seen. Ova + Parasite Exam Final report (Normal) Comments: These results were obtained using wet preparation(s) and trichromestained smear. This test does not include testing for Cryptosporidiumparvum, Cyclospora, or Microsporidia. :37 SETH CULTURE-STOOL (50635) Comments: PATIENT NOT FASTINGPERFORMED BY: Gamida CellBlue Ridge Regional Hospital [id number] Information: SRC:ST SRC:ST E coli Shiga Toxin EIA Negative (Normal) Result 1 NCI (Normal) Comments: No Campylobacter species isolated. Campylobacter Culture Final report (Normal) Result 1 NSS (Normal) Comments: No Salmonella or Shigella recovered. Salmonella/Shigella Screen Final report (Normal) :06 Renal function Panel Comments: fax copy to Dr. Santana [phone]; A courtesy copy of this report has been sent [phone].PATIENT NOT FASTINGPERFORMED BY: [place] [id number] Information: NURSE DRAW (61308) Albumin 3.5 g/dL (Normal) Range: 3.5-4.8 Phosphorus [...] copy of this report has been sent [phone].PATIENT NOT FASTINGPERFORMED BY: [employer]70 N2N CommerceWakeMed Cary Hospital [id number] :02 Range: 15-65 Vitamin D, 25-Hydroxy 34.7 ng/mL (Normal) Comments: A courtesy copy of this report has been sent [phone].PATIENT NOT FASTINGPERFORMED BY: [employer] Dhflfj5552 N2N CommerceWakeMed Cary Hospital [id number] :02 Range: 30.0-100.0 Comments: Vitamin D deficiency has been defined by the Carbon ofMedicine and an Endocrine Society practice guideline as alevel of serum 25-OH vitamin D less than 20 ng/mL (1,2).The Endocrine Society went on to further define vitamin Dinsufficiency as a level between 21 and 29 ng/mL (2).1. IOM (Carbon of Medicine). 2010. Dietary reference intakes for calcium and D. [place]: The National Academies Press.2. Mira MF, Rosette LOPEZ, Tommy SWAIN, et al. Evaluation, treatment, and prevention of vitamin D deficiency: an Endocrine Society clinical practice guideline. JCEM. 2010; 96(7):1911-30. 8-Nwk-162247:02 MICROALBUMIN: CREATININE RATIO Comments: send results to Dr. Santana fax: [phone]; A courtesy copy of this report has been sent [phone].PATIENT NOT FASTINGPERFORMED BY: MON[place] [id number] (67747) AND (45779) Alb/Creat Ratio 4191.2 {mg/g_creat} (Abnormal) Range: 0.0-30.0 Albumin, Urine 2380.6 ug/mL (Normal) Comments: Results confirmed ondilution. Creatinine, Urine 56.8 mg/dL (Normal) 4-Bgd-138511:02 CBC, PLATELETS & MANUAL Comments: send results to Dr. Santana fax: [phone]; A courtesy copy of this report has been sent [phone].PATIENT NOT FASTINGPERFORMED BY: [place] [id number] Information: VIT D25, PTH DIFF (82459) Immature Grans (Abs) 0.0 {x10E3/uL} (Normal) Range: [...] 3.77-5.28 WBC 5.4 {x10E3/uL} (Normal) Range: 3.4-10.8 0-Nsd-701380:02 MAGNESIUM (34981) Comments: send results to Dr. Santana fax: [phone]; A courtesy copy of this report has been sent [phone].PATIENT NOT FASTINGPERFORMED BY: iTiffinKessler Institute for RehabilitationQltdni2043 [facility] [id number] Magnesium, Serum 1.8 mg/dL (Normal) Range: 1.6-2.3 0-Ipo-206191:02 RENAL FUNCTION PANEL (60897) Comments: send results to Dr. Santana fax: [phone]; A courtesy copy of this report has been sent [phone].PATIENT NOT FASTINGPERFORMED BY: iTiffinKessler Institute for RehabilitationZkuewj1929 [facility] [id number] Albumin, Serum 3.7 g/dL (Normal) Range: 3.5-4.8 [...] Glucose, Serum 119 mg/dL (Abnormal) Range: 65-99 6-Cqm-131162:07 LIPID PANEL (80351) Comments: PATIENT WAS FASTINGPERFORMED BY: [employer] LabCoMedShapeXytrog3532 N2N CommerceWakeMed Cary Hospital [id number] LDL/HDL Ratio 1.4 {ratio} (Normal) Range: 0.0-3.2 Comments: LDL/HDL Ratio Men Women 1/2 Avg.Risk 1.0 1.5 Av g.Risk 3.6 3.2 2X Avg.Risk 6.2 5.0 3X Avg.Risk 8.0 6.1 LDL Cholesterol Calc 102 mg/dL (Abnormal) Range: 0-99 VLDL Cholesterol Cesar 17 mg/dL (Normal) Range: 5-40 HDL Cholesterol 75 mg/dL (Normal) Triglycerides 84 mg/dL (Normal) Range: 0-149 Cholesterol, Total 194 mg/dL (Normal) Range: 100-199 6-Zir-943268:07 CBC W/AUTO DIFF WBC (15086) Comments: PATIENT WAS FASTINGPERFORMED BY: [email or web address] [facility] Rudwjw1168 [facility] [id number] Immature Grans (Abs) 0.0 {x10E3/uL} (Normal) Range: [...] 3.77-5.28 WBC 4.8 {x10E3/uL} (Normal) Range: 3.4-10.8 6-Qae-100691:07 METABOLIC PANEL, COMPREHENSIVE Comments: PATIENT WAS FASTINGPERFORMED BY: LabCoKessler Institute for RehabilitationBcawow7693 [facility] [id number] (88933) ALT (SGPT) 14 [iU]/L (Normal) Range: 0-32 [...] 8-27 Glucose 158 mg/dL (Abnormal) Range: 65-99 5-Pmm-103985:07 VITAMIN B-12 (CYANOCOBALAMIN) Comments: PATIENT WAS FASTINGPERFORMED BY: [employer] LabCoAssayMetrics [facility] [id number] (66142) Vitamin B12 771 pg/mL (Normal) Range: 232-1245 13-May-20170:00 CDIFF (Molecular) Comments: [facility] [address] [place] [address], 493031 CDIFF See Note (Normal) Comments: Cdiff-MolecularNormal Reference Range = Negative C. Diff DNA Negative- No toxigenic C. Diff DNA DetectedNAAT METHOD Testing was performed using nucleic acid amplification :32 Rapid Flu (46480 x 2) Influenza A Ag Negative (Normal) :35 CBC with auto diff (05921) Comments: PATIENT WAS FASTINGPERFORMED BY: [email or web address] LabCoKessler Institute for RehabilitationWscktb9189 [facility] [id number] Immature Grans (Abs) 0.0 {x10E3/uL} (Normal) Range: [...] 3.77-5.28 WBC 6.6 {x10E3/uL} (Normal) Range: 3.4-10.8 30-Ctv-26848:35 METABOLIC PANEL, COMPREHENSIVE Comments: PATIENT WAS FASTINGPERFORMED BY: LabCoKessler Institute for RehabilitationPlmcmv9392 [facility] [id number] (60174) ALT (SGPT) 16 [iU]/L (Normal) Range: 0-32 [...] Glucose, Serum 145 mg/dL (Abnormal) Range: 65-99 76-Eji-542172:51 HgA1C , Office (76290) HgA1C , Office 6.7 % (Normal) Range: 4.6 - 7.1 :50 CALCIFEDIOL (67240) Comments: A courtesy copy of this report has been sent [phone].PATIENT WAS FASTINGPERFORMED BY: [facility]6370 [facility] [id number] Vitamin D, 25-Hydroxy 40.7 ng/mL (Normal) Range: 30.0-100.0 Comments: Vitamin D deficiency has been defined by the Carbon ofRegency Hospital Cleveland Westcine and an Endocrine Society practice guideline as alevel of serum 25-OH vitamin D less than 20 ng/mL (1,2).The Endocrine Society went on to further define vitamin Dinsufficiency as a level between 21 and 29 ng/mL (2).1. IOM (Carbon of Medicine). 2010. Dietary reference intakes for calcium and D. [place]: The National Academies Press.2. Mira MF, Rosette LOPEZ, Tommy SWAIN, et al. Evaluation, treatment, and prevention of vitamin D deficiency: an Endocrine Society clinical practice guideline. JCEM. 2010; 96(7):1911-30. 7-Jld-431837:50 PTH (PARATHORMONE) (80802) Comments: A courtesy copy of this report has been sent [phone].PATIENT WAS FASTINGPERFORMED BY: [employer]6370 [facility] [id number] PTH, Intact 20 pg/mL (Normal) Range: 15-65 0-Njn-649743:50 MICROALBUMIN: CREATININE RATIO Comments: A courtesy copy of this report has been sent [phone].PATIENT WAS FASTINGPERFORMED BY: [employer] Aimggx1121 [facility] [id number] (66466) AND (28155) Microalb/Creat Ratio 4376.0 {mg/g_creat} (Abnormal) Range: 0.0-30.0 Microalbumin, Urine 3369.5 ug/mL (Normal) Comments: Results confirmed ondilution. Creatinine, Urine 77.0 mg/dL (Normal) 9-Opd-102886:50 Renal function Panel Comments: A courtesy copy of this report has been sent [phone].PATIENT WAS FASTINGPERFORMED BY: [employer] Tiydlf5432 [facility] [id number] Information: FX DR. SANTANA [phone] (97346) Albumin, Serum 3.8 g/dL (Normal) Range: 3.5-4.8 [...] Glucose, Serum 203 mg/dL (Abnormal) Range: 65-99 2-Gmk-935441:50 Magnesium (65075) Comments: A courtesy copy of this report has been sent [phone].PATIENT WAS FASTINGPERFORMED BY: [facility]6370 [facility] [id number] Magnesium, Serum 1.8 mg/dL (Normal) Range: 1.6-2.3 2-Nhv-625504:53 CBC with auto diff (90482) Comments: A courtesy copy of this report has been sent [phone].PATIENT WAS FASTINGPERFORMED BY: [facility]6370 [facility] [id number] Immature Grans (Abs) 0.0 {x10E3/uL} (Normal) Range: [...] {x10E3/uL} (Normal) Range: 3.4-10.8 :53 LIPID PANEL (00604) Comments: A courtesy copy of this report has been sent [phone].PATIENT WAS FASTINGPERFORMED BY: [facility]-Line ExpressUp Health System6370 [facility] [id number] LDL/HDL Ratio 1.2 {ratio_units} (Normal) Range: 0.0-3.2 [...] copy of this report has been sent [phone].PATIENT WAS FASTINGPERFORMED BY: [facility] ExpressUp Health System6370 [facility] [id number] (88995) ALT (SGPT) 11 [iU]/L (Normal) Range: 0-32 [...] (Abnormal) Range: 65-99 :57 HgA1C , Office (70016) HgA1C , Office 7.1 % (Normal) Range: 4.6 - 7.1 :09 LIPID PANEL (72449) Comments: PATIENT WAS FASTINGPERFORMED BY: MON[place] [id number] LDL/HDL Ratio 1.3 {ratio_units} (Normal) Range: 0.0-3.2 [...] PANEL, COMPREHENSIVE Comments: PATIENT WAS FASTINGPERFORMED BY: MON[place]J AR [id number] (91031) ALT (SGPT) 12 [iU]/L (Normal) Range: 0-32 [...] (Abnormal) Range: 65-99 :50 HgA1C , Office (36296) HgA1C , Office 6.7 % (Normal) Range: 4.6 - 7.1 :25 Magnesium, Serum 1.9 mg/dL (Normal) Comments: PATIENT WAS FASTINGPERFORMED BY: [employer]70 [facility] [id number] Range: 1.6-2.3 :25 Microalb/Creat Ratio, Randm Ur Comments: PATIENT WAS FASTINGPERFORMED BY: [employer]70 [facility] [id number] Microalb/Creat Ratio 2652.0 {mg/g_creat} Range: 0.0-30.0 (Abnormal) Microalbumin, Urine 2482.3 ug/mL (Normal) Comments: Results confirmed ondilution. Creatinine, Urine 93.6 mg/dL (Normal) PTH, Intact 26 pg/mL (Normal) Comments: PATIENT WAS FASTINGPERFORMED BY: CB [facility] Krulxy6874 [address] RoadDublin [place] [id number] :25 Range: 15-65 :25 Renal Panel (10) Comments: PATIENT WAS FASTINGPERFORMED BY: CB [facility] Sjiher3263 [address] RoadDublin [place] [id number] Phosphorus, Serum 4.3 mg/dL (Normal) Range: 2.5-4.5 :25 Thyroxine (T4) Free, Direct, S Comments: PATIENT WAS FASTINGPERFORMED BY: CB [facility] Hlcsko7906 [address] RoadDublin [place] [id number] T4,Free(Direct) 1.08 ng/dL (Normal) Range: 0.82-1.77 : TSH 2.980 {uIU/mL} Comments: PATIENT WAS FASTINGPERFORMED BY: CB [facility] Fourcw5952 [address] RoadDublin [place] [id number] 25 (Normal) Range: 0.450-4.500 : Vitamin D, 25-Hydroxy 37.1 ng/mL (Normal) Comments: PATIENT WAS FASTINGPERFORMED BY: CB [facility] Bbljut1271 [address] RoadDublin [place] [id number] 25 Range: 30.0-100.0 Comments: Vitamin D deficiency has been defined by the Carbon ofMedicine and an Endocrine Society practice guideline as alevel of serum 25-OH vitamin D less than 20 ng/mL (1,2).The Endocrine Society went on to further define vitamin Dinsufficiency as a level between 21 and 29 ng/mL (2).1. IOM (Carbon of Medicine). 2010. Dietary reference intakes for calcium and D. [place]: The National Academies Press.2. Mira MF, Rosette LOPEZ, Tommy SWAIN, et al. Evaluation, treatment, and prevention of vitamin D deficiency: an Endocrine Society clinical practice guideline. JCEM. 2010; 96(7):1911-30. :25 CBC W/AUTO DIFF WBC (65768) Comments: PATIENT WAS FASTINGPERFORMED BY: CB [facility] Mjnlzn4498 [address] RoadDublin [place] [id number] Immature Grans (Abs) 0.0 {x10E3/uL} (Normal) Range: [...] PANEL, COMPREHENSIVE Comments: PATIENT WAS FASTINGPERFORMED BY: LabCoKessler Institute for RehabilitationNdciao3418 [facility] [id number]; non- emergent till apt (41858) ALT (SGPT) 10 [iU]/L (Normal) Range: 0-32 [...] mg/dL (Abnormal) Range: 65-99 03-Aug-20169:25 LIPID PANEL (85893) Comments: PATIENT WAS FASTINGPERFORMED BY: LabCoKessler Institute for RehabilitationYyxklo7203 [facility] [id number] LDL/HDL Ratio 0.9 {ratio_units} (Normal) Range: 0.0-3.2 Comments: LDL/HDL Ratio Men Women 1/2 Avg.Risk 1.0 1.5 Av g.Risk 3.6 3.2 2X Avg.Risk 6.2 5.0 3X Avg.Risk 8.0 6.1 LDL Cholesterol Calc 65 mg/dL (Normal) Range: 0-99 VLDL Cholesterol Cesar 19 mg/dL (Normal) Range: 5-40 HDL Cholesterol 75 mg/dL (Normal) Triglycerides 93 mg/dL (Normal) Range: 0-149 Cholesterol, Total 159 mg/dL (Normal) Range: 100-199 31-Iqn-270474:54 HgA1C , Office (67478) HgA1C , Office 6.6 % (Normal) Range: 4.6 - 7.1 58-Ekv-877338:1 Magnesium, Serum 2.1 mg/dL (Normal) Comments: PATIENT WAS FASTINGPERFORMED BY: iT[employer]in Dfhrik8625 [address] Commercein [place] [id number] 2 Range: 1.6-2.3 47-Bve-866886:12 Microalb/Creat Ratio, Randm Ur Comments: PATIENT WAS FASTINGPERFORMED BY: iTiffin Gkyrkx[address] [facility] Centerin [place] [id number] Microalb/Creat Ratio 1863.4 {mg/g_creat} (Abnormal) Range: 0.0-30.0 Microalbumin, Urine 1416.2 ug/mL (Normal) Comments: Results confirmed ondilution. Creatinine, Urine 76.0 mg/dL (Normal) 17-Hhi-644210:12 Microscopic Examination Comments: PATIENT WAS FASTINGPERFORMED BY: iT[employer]in Tzcmju9168 [address] [place] [id number] Bacteria None seen (Normal) Mucus Threads Present (Normal) Cast Type Hyaline casts (Normal) Casts Present {/lpf} (Abnormal) Epithelial Cells (non 0-10 {/hpf} Range: 0 - 10 renal) (Normal) RBC 3-10 {/hpf} Range: 0 - 2 (Abnormal) WBC 6-10 {/hpf} Range: 0 - 5 (Abnormal) PTH, Intact 36 pg/mL (Normal) Comments: PATIENT WAS FASTINGPERFORMED BY: iTiffin Rymghk[address] [facility] [address] [facility]in [place] [id number] 0:12 Range: 15-65 Vitamin D, 25-Hydroxy 42.9 ng/mL (Normal) Comments: PATIENT WAS FASTINGPERFORMED BY: iTiffin Jjcckw7948 [address] [facility] CenterDublin [place] [id number] 0:12 Range: 30.0-100.0 Comments: Vitamin D deficiency has been defined by the Carbon ofMedicine and an Endocrine Society practice guideline as alevel of serum 25-OH vitamin D less than 20 ng/mL (1,2).The Endocrine Society went on to further define vitamin Dinsufficiency as a level between 21 and 29 ng/mL (2).1. IOM (Carbon of Medicine). 2010. Dietary reference intakes for calcium and D. [place]: The National Academies Press.2. Mira MF, Rosette LOPEZ, Tommy SWAIN, et al. Evaluation, treatment, and prevention of vitamin D deficiency: an Endocrine Society clinical practice guideline. JCEM. 2010; 96(7):1911-30. 89-Xvy-544519:12 URINALYSIS, W/ MICRO (93638) Comments: PATIENT WAS FASTINGPERFORMED BY: [employer]6370 [facility] [id number] Microscopic Examination See below: (Normal) Comments: Microscopic was indicated and was performed. Nitrite, Urine Negative (Normal) Urobilinogen,Semi-Qn 0.2 mg/dL (Normal) Range: 0.2-1.0 Bilirubin Negative (Normal) Occult Blood Negative (Normal) Ketones Negative (Normal) Glucose Negative (Normal) Protein 4+ (Abnormal) WBC Esterase Trace (Abnormal) Appearance Clear (Normal) Urine-Color Yellow (Normal) pH 6.0 (Normal) Range: 5.0-7.5 Specific [place] 1.015 (Normal) Range: 1.005-1.030 86-Gou-948740:12 CBC W/AUTO DIFF WBC (71612) Comments: PATIENT WAS FASTINGPERFORMED BY: [employer] LabCoWinmedicalWgofic4011 [facility] [id number] Immature Grans (Abs) 0.0 {x10E3/uL} (Normal) Range: [...] 3.77-5.28 WBC 6.2 {x10E3/uL} (Normal) Range: 3.4-10.8 99-Sjy-301904:12 METABOLIC PANEL, COMPREHENSIVE Comments: PATIENT WAS FASTINGPERFORMED BY: [facility]6370 [facility] [id number] (45699) ALT (SGPT) 14 [iU]/L (Normal) Range: 0-32 [...] Glucose, Serum 154 mg/dL (Abnormal) Range: 65-99 31-Osn-140286:12 LIPID PANEL (63435) Comments: PATIENT WAS FASTINGPERFORMED BY: [employer] [facility] [id number] LDL/HDL Ratio 0.7 {ratio_units} (Normal) Range: 0.0-3.2 Comments: LDL/HDL Ratio Men Women 1/2 Avg.Risk 1.0 1.5 Av g.Risk 3.6 3.2 2X Avg.Risk 6.2 5.0 3X Avg.Risk 8.0 6.1 LDL Cholesterol Calc 49 mg/dL (Normal) Range: 0-99 VLDL Cholesterol Cesar 14 mg/dL (Normal) Range: 5-40 HDL Cholesterol 75 mg/dL (Normal) Triglycerides 68 mg/dL (Normal) Range: 0-149 Cholesterol, Total 138 mg/dL (Normal) Range: 100-199 22-Rao-385169:50 HgA1C , Office (61558) HgA1C , Office 6.7 % (Normal) Range: 4.6 - 7.1 49-Zhc-358388:36 VITAMIN B-12 (CYANOCOBALAMIN) Comments: PATIENT WAS FASTINGPERFORMED BY: iT[employer]in Sdugrz8609 [facility] [id number] (86137) Vitamin B12 802 pg/mL (Normal) Range: 211-946 64-Zci-748208:36 LIPID PANEL (24121) Comments: PATIENT WAS FASTINGPERFORMED BY: iTiffinKessler Institute for RehabilitationWzbdlg5467 [facility] [id number] LDL/HDL Ratio 0.8 {ratio_units} (Normal) Range: 0.0-3.2 [...] Cholesterol, Total 161 mg/dL (Normal) Range: 100-199 31-Ygj-078759:36 LDH (LD) (LACTATE DEHYDROGENASE) Comments: PATIENT WAS FASTINGPERFORMED BY: LabCoKessler Institute for RehabilitationOaedpd2[address] [place] [address] [id number] (44253) LDH 217 [iU]/L (Normal) Range: 119-226 72-Abm-086301:36 CBC W/AUTO DIFF WBC (52123) Comments: PATIENT WAS FASTINGPERFORMED BY: [facility]6370 [facility] [id number] Immature Grans (Abs) 0.0 {x10E3/uL} (Normal) Range: [...] 3.77-5.28 WBC 10.6 {x10E3/uL} (Normal) Range: 3.4-10.8 31-Kca-071398:36 METABOLIC PANEL, COMPREHENSIVE Comments: PATIENT WAS FASTINGPERFORMED BY: LabCoKessler Institute for RehabilitationJsnypc6986 [facility] [id number] (81806) ALT (SGPT) 15 [iU]/L (Normal) Range: 0-32 [...] Glucose, Serum 137 mg/dL (Abnormal) Range: 65-99 06-Hhj-395020:36 TSH (55163) Comments: PATIENT WAS FASTINGPERFORMED BY: [employer] [facility] [id number] TSH 0.560 {uIU/mL} (Normal) Range: 0.450-4.500 :02 Renal function Panel (09342) Comments: PATIENT WAS FASTINGPERFORMED BY: [employer] [facility] [id number] Albumin, Serum 3.7 g/dL (Normal) Range: 3.5-4.8 [...] 137 mg/dL (Abnormal) Range: 65-99 :02 MAGNESIUM (85267) Comments: PATIENT WAS FASTINGPERFORMED BY: [employer] [facility] [id number] Magnesium, Serum 2.2 mg/dL (Normal) Range: 1.6-2.3 :02 MICROALBUMIN: CREATININE RATIO Comments: PATIENT WAS FASTINGPERFORMED BY: iTiffinRehabilitation Hospital of Southern New MexicoFmqqle2049 [facility] [id number] (98630) AND (84381) Microalb/Creat Ratio 2038.7 {mg/g_creat} (Abnormal) Range: 0.0-30.0 Microalbumin, Urine 1223.2 ug/mL (Normal) Comments: Results confirmed ondilution. Creatinine, Urine 60.0 mg/dL (Normal) :02 CBC WITH MANUAL DIFF Comments: PATIENT WAS FASTINGPERFORMED BY: iTiffin Tpvfbi0123 [facility] [id number] Information: [id number] CC:[id number] (35809) Immature Grans (Abs) 0.0 {x10E3/uL} (Normal) Range: [...] {x10E3/uL} (Normal) Range: 3.4-10.8 :02 HGB A1C (54943) Comments: PATIENT WAS FASTINGPERFORMED BY: [address] [id number] Hemoglobin A1c 6.4 % (Abnormal) Range: 4.8-5.6 Comments: . Pre-diabetes: 5.7 - 6.4 Diabetes: >6.4 Glycemic control for adults with diabetes: <7.0 :02 Lipid Panel (15087) Comments: PATIENT WAS FASTINGPERFORMED BY: [address] [id number] LDL/HDL Ratio 1.1 {ratio_units} (Normal) Range: 0.0-3.2 [...] Cholesterol, Total 160 mg/dL (Normal) Range: 100-199 52-Nxe-502146:03 HgA1C , Office (80211) HgA1C , Office 6.1 % (Normal) Range: 4.6 - 7.1 :24 CBC W/AUTO DIFF WBC Comments: PATIENT WAS FASTINGPERFORMED BY: [address] [id number] Information: [id number] (05770) Immature Grans (Abs) 0.0 {x10E3/uL} (Normal) Range: [...] RATIO Comments: PATIENT WAS FASTINGPERFORMED BY: EVE iTiffinsyl EmersonHgcepq9528 [facility] [id number] (33080) AND (15636) Microalb/Creat Ratio 1223.8 {mg/g_creat} (Abnormal) Range: 0.0-30.0 Microalbumin, Urine 1012.1 ug/mL (Abnormal) Range: 0.0-17.0 Comments: Results confirmed ondilution. Creatinine, Urine 82.7 mg/dL (Normal) Range: 15.0-278.0 :24 METABOLIC PANEL, COMPREHENSIVE Comments: PATIENT WAS FASTINGPERFORMED BY: EVE iTiffinKessler Institute for RehabilitationAfevux7315 [facility] [id number] (06836) ALT (SGPT) 12 [iU]/L (Normal) Range: 0-32 [...] mg/dL (Abnormal) Range: 65-99 06-Jun-20158:24 LIPID PANEL (83604) Comments: PATIENT WAS FASTINGPERFORMED BY: LabCoKessler Institute for RehabilitationHjbede7888 [facility] [id number] LDL/HDL Ratio 1.1 {ratio_units} (Normal) Range: 0.0-3.2 [...] Range: 100-199 :30 CBC W/Diff, Automated Comments: [facility] Y[address]flcox[address] [place], [address] Absolute Lymph 0.83 {X10_3/ul} (Normal) Range: 0.83-4.51 [...] 4.2-5.4 WBC 4.5 K/mm3 (Normal) Range: 4.4-11.0 93-Uza-53299:30 Hemoglobin A1c Comments: [facility] Vqkqxcavwu5[address] [place], [place], [address] HGB A1C 6.1 % (Normal) Range: 4.2-6.3 :30 Magnesium Comments: [facility] Zfniyqxhlm[address] [place], [id number] MG 1.8 mg/dL (Normal) Range: 1.8-2.4 :30 Protein+Creatinine Ratio,Urine Comments: [facility] Bnhwyutgjd11[address] [place], [id number] PROT:CRE RATIO 2121 {mg/g_CRE} (Abnormal) Range: 0-200 PROTEIN,UR.RAN. 164.2 mg/dL (Abnormal) UR CREAT 77.40 mg/dL (Normal) :30 Renal Profile Comments: [facility] Futjkxrjjf4[address] [place], [place], [address] CO2 27.0 mmol/L (Normal) Range: 21.0-32.0 CL [...] 126 mg/dLsuggests DIABETES MELLITUS per A.D.A. criteria. 39-Lyd-90234:00 24 HR UR Creatinine Clearance Comments: [facility] Rfkgyjzzzi978[address] [place], [place], [address] CREAT CLEARANCE 24 ml/min (Abnormal) Range: 100-200 URINE CREAT 20.6 mg/dL (Normal) EST GFR - AA 38 mL/min (Abnormal) Comments: GFR Calc EST GFR 31 mL/min (Abnormal) Comments: Non- GFR Calc SERUM CREAT 1.7 mg/dL (Abnormal) Range: 0.6-1.0 UR TOTAL VOLUME 2800 mL (Normal) UR COLLECT TIME 24.0 {HOURS} (Normal) :00 Protein, Urine 24HR Comments: [facility] Fjylrxbsgh36[address] [place], [place], [id number] 24hr UR PROTEIN 1178.8 {mg/24HR} (Abnormal) URINE PROTEIN 42.1 mg/dL (Abnormal) UR TOTAL VOLUME 2800 mL (Normal) UR COLLECT TIME 24.0 {HOURS} (Normal) :29 Metabolic Panel, Basic Comments: PATIENT NOT FASTINGPERFORMED BY: LabCoKessler Institute for RehabilitationBzmcja6607 [facility] [id number] Information: [id number] (89665) Calcium, Serum 9.3 mg/dL (Normal) Range: 8.7-10.3 [...] Basic Comments: tuesday; PATIENT NOT FASTINGPERFORMED BY: [employer] Fqoqin8405 [facility] [id number] Information: [id number] (65201) Calcium, Serum 9.0 mg/dL (Normal) Range: 8.7-10.3 [...] (Abnormal) Range: 65-99 :32 HgA1C , Office (51056) HgA1C , Office 6.2 % (Normal) Range: 4.6 - 7.1 :31 Rapid Strep Test, Office (05116) Comments: neg Rapid Strep Test, Office Negative (Normal) :06 THROAT CULTURE (36620) Comments: PATIENT NOT FASTINGPERFORMED BY: [employer] Ndlgbd2586 [facility] [id number] Information: [id number] Result 1 RRF (Normal) Comments: Routine respiratory luis Upper Respiratory Culture Final report (Normal) :52 TSH (67692) Comments: PATIENT WAS FASTINGPERFORMED BY: [facility] Uguxjl5889 [facility] [id number] TSH 2.190 {uIU/mL} (Normal) Range: 0.450-4.500 :52 Vitamin D Hydroxy (97646) Comments: PATIENT WAS FASTINGPERFORMED BY: [facility] Gnrwpc8482 [facility] [id number] Vitamin D, 25-Hydroxy 43.8 ng/mL (Normal) Range: 30.0-100.0 Comments: Vitamin D deficiency has been defined by the Carbon ofMedicine and an Endocrine Society practice guideline as alevel of serum 25-OH vitamin D less than 20 ng/mL (1,2).The Endocrine Society went on to further define vitamin Dinsufficiency as a level between 21 and 29 ng/mL (2).1. IOM (Carbon of Medicine). 2010. Dietary reference intakes for calcium and D. [place]: The National Academies Press.2. Mira MF, oRsette LOPEZ, Tommy SWAIN, et al. Evaluation, treatment, and prevention of vitamin D deficiency: an Endocrine Society clinical practice guideline. JCEM. 2010; 96(7):1911-30. :52 LIPID PANEL (68225) Comments: PATIENT WAS FASTINGPERFORMED BY: [employer]70 N2N [facility] [id number] LDL/HDL Ratio 1.3 {ratio_units} (Normal) Range: 0.0-3.2 [...] auto diff Comments: PATIENT WAS FASTINGPERFORMED BY: [employer] [facility] Tibfgp4816 [facility] CenterFriendsigniain [place] [id number] Information: [id number], [id number] (29501) Immature Grans (Abs) 0.0 {x10E3/uL} (Normal) Range: [...] PANEL, COMPREHENSIVE Comments: PATIENT WAS FASTINGPERFORMED BY: [facility]CoKessler Institute for RehabilitationYstpmj5393 [facility] [id number] (80749) ALT (SGPT) 19 [iU]/L (Normal) Range: 0-32 [...] Glucose, Serum 127 mg/dL (Abnormal) Range: 65-99 4-Uyd-150729:08 HgA1C , Office (03925) HgA1C , Office 6.4 % (Normal) Range: 4.6 - 7.1 9-Crq-853608:00 Creatinine Clearance Comments: PATIENT NOT FASTINGPERFORMED BY: EVE iTiffinsyl EmersonHmfbsp7759 [facility] [id number] Information: [id number] S TART Creatinine Clearance 33 mL/min (Abnormal) Range: 88-128 Comments: The above range is based on 1.73 square meter average body surfacearea. Creatinine, Ur 24hr 642.0 {mg/24_hr} (Abnormal) Range: 800.0-1800.0 Creatinine, Urine 34.7 mg/dL (Normal) Range: 15.0-278.0 eGFR If Africn Am 43 mL/min/1.73 (Abnormal) eGFR If NonAfricn Am 37 mL/min/1.73 (Abnormal) Creatinine, Serum 1.37 mg/dL (Abnormal) Range: 0.57-1.00 9-Ykj-726937:00 Protein Total, Qn, 24-Hr Comments: PATIENT NOT FASTINGPERFORMED BY: [facility] Ncoxtd0220 [place] [id number] Urine Prot,24hr calculated 1309.8 {mg/24_hr} (Abnormal) Range: 30.0-150.0 Protein,Total,Urine 70.8 mg/dL (Abnormal) Range: 0.0-15.0 :01 CBC W/Diff, Automated Comments: Test performed at:[facility] Lbgtsewfcl7995 [facility] [place] [address] Absolute Neut 3.1 {X10_3/uL} (Normal) [...] Range: 4.4-11.0 :01 Magnesium Comments: Test performed at:[facility] Hiddbsstdx6959 [facility] [place] [address] MG 2.0 mg/dL (Normal) Range: 1.8-2.4 :01 Protein+Creatinine Ratio,Urine Comments: Test performed at:[facility] Wphmcyinox[address] [place], [place] [address] PROT:CRE RATIO 2232 {mg/g_CRE} (Abnormal) Range: 0-200 PROTEIN,UR.RAN. 160.3 mg/dL (Abnormal) UR CREAT 71.8 mg/dL (Normal) :01 Renal Profile Comments: Test performed at:[facility] Bleirahtve3507 [place] [address] CO2 32.0 mmol/L (Normal) Range: 21.0-32.0 CL [...] mg/dL (Normal) Range: 70-110 :08 LIPID PANEL (91788) Comments: PATIENT WAS FASTINGPERFORMED BY: [facility] Vrjtor1233 [facility] [id number] LDL/HDL Ratio 1.0 {ratio_units} (Normal) Range: 0.0-3.2 [...] METABOLIC PANEL, Comments: PATIENT WAS FASTINGPERFORMED BY: LabCoKessler Institute for RehabilitationLsoojc1837 [facility] [id number] Information: [id number] COMPREHENSIVE (04545) ALT (SGPT) 29 [iU]/L (Normal) Range: 0-32 [...] Glucose, Serum 159 mg/dL (Abnormal) Range: 65-99 0-Gkq-983986:59 HgA1C , Office (91401) HgA1C , Office 6.5 % (Normal) Range: 4.6 - 7.1 :54 CBC W/AUTO DIFF WBC Comments: PATIENT WAS FASTINGPERFORMED BY: [facility]6370 [facility] [id number] Information: [id number] (16352) Immature Grans (Abs) 0.0 {x10E3/uL} (Normal) Range: [...] PANEL, COMPREHENSIVE Comments: PATIENT WAS FASTINGPERFORMED BY: [facility]CoKessler Institute for RehabilitationHxnnzz8257 [facility] [id number]; non- emergent till apt (01322) ALT (SGPT) 13 [iU]/L (Normal) Range: 0-32 [...] Glucose, Serum 142 mg/dL (Abnormal) Range: 65-99 33-Zev-30655:54 LIPID PANEL (84625) Comments: PATIENT WAS FASTINGPERFORMED BY: [facility]6370 [facility] [id number] LDL/HDL Ratio 1.1 {ratio_units} (Normal) Range: 0.0-3.2 [...] Cholesterol, Total 140 mg/dL (Normal) Range: 100-199 4-Ung-868846:29 HgA1C , Office (86218) HgA1C , Office 6.6 % (Normal) Range: 4.6 - 7.1 :12 CBC W/Diff, Automated Comments: Test performed at:[facility] Ikxsijbgfl34[address] [place], [place] [address] ; handled by Dr. Santana Absolute Lymph [...] Range: 4.4-11.0 :12 Magnesium Comments: Test performed at:[facility] Rgbfxwfauj7[address] [place] [address] MG 2.0 mg/dL (Normal) Range: 1.8-2.4 :12 Microalb:Creat Ratio,Random UR Comments: Test performed at:[facility] Pslesmntrd7981 [facility] [place] [address] ; Dr. Angelo LING:CREAT 1483.0 {mg/g_CRE} (Abnormal) MICROALBUMIN,UR 918.0 mg/L (Normal) UR CREAT 61.9 mg/dL (Normal) :12 Renal Profile Comments: Test performed at:[facility] Nwrsjvwtpd6[address] [place] [address] CO2 29.0 mmol/L (Normal) Range: 21.0-32.0 CL [...] 126 mg/dLsuggests DIABETES MELLITUS per A.D.A. criteria. 89-Sye-919974:20 LIPID PANEL (39931) Comments: PATIENT WAS FASTINGPERFORMED BY: [facility] Aubqld7911 [address] [facility] [id number] LDL/HDL Ratio 1.0 {ratio_units} (Normal) Range: 0.0-3.2 [...] Cholesterol, Total 151 mg/dL (Normal) Range: 100-199 83-Qfy-434751:20 METABOLIC PANEL, Comments: PATIENT WAS FASTINGPERFORMED BY: [facility]CoKessler Institute for RehabilitationJndsce1080 [facility] [id number] Information: [id number] COMPREHENSIVE (09258) ALT (SGPT) 16 [iU]/L (Normal) Range: 0-32 [...] Glucose, Serum 148 mg/dL (Abnormal) Range: 65-99 42-Fjz-615205:21 CREATININE CLEARANCE Comments: PATIENT WAS FASTINGPERFORMED BY: [place] 4550670 [facility] [id number] Information: [id number] START 04/02/14@9AM FINISH 04/03/14 6:00 AM (15973) Creatinine Clearance 42 mL/min (Abnormal) Range: 88-128 Comments: The above range is based on 1.73 square meter average body surfacearea. Creatinine, Ur 24hr 812.3 {mg/24_hr} (Normal) Range: 800.0-1800.0 Creatinine, Urine 28.5 mg/dL (Normal) Range: 15.0-278.0 eGFR If Africn Am 45 mL/min/1.73 (Abnormal) eGFR If NonAfricn Am 39 mL/min/1.73 (Abnormal) Creatinine, Serum 1.33 mg/dL (Abnormal) Range: 0.57-1.00 09-Iwk-536596:21 Total Protein,24 Hour Urine Comments: PATIENT WAS FASTINGPERFORMED BY: [facility]6370 [facility] [id number] (61383) Prot,24hr calculated 1559.0 {mg/24_hr} (Abnormal) Range: 30.0-150.0 Protein,Total,Urine 54.7 mg/dL (Abnormal) Range: 0.0-15.0 :57 LIPID PANEL (65671) Comments: PATIENT WAS FASTINGPERFORMED BY: [facility]6370 [facility] [id number] LDL/HDL Ratio 1.1 {ratio_units} (Normal) Range: 0.0-3.2 [...] DIFF Comments: PATIENT WAS FASTINGPERFORMED BY: EVE [facility]6370 [facility] [id number] Information: [id number] (41993) Immature Grans (Abs) 0.0 {x10E3/uL} (Normal) Range: [...] COMPREHENSIVE Comments: PATIENT WAS FASTINGPERFORMED BY: EVE [facility]CoK[facility]ler Institute for RehabilitationVwzjoj6817 [facility] [id number] (10150) ALT (SGPT) 10 [iU]/L (Normal) Range: 0-32 [...] Result Units: mg/dL AdultPerformed at: - [facility] [address] [id number] Director: Yousuf Bernardo PhD, Phone: [phone] C4 37 (Abnormal) Range: 9-36 0 [...] 75.6 mg/dL (Abnormal) CREU 49.3 mg/dL (Normal) 15-Lzt-48705:21 CBC WITH MANUAL DIFF Comments: PATIENT WAS FASTINGPERFORMED BY: [facility]CoKessler Institute for RehabilitationMkledm6438 [facility] [id number] Information: [id number] (32234) Immature Grans (Abs) 0.0 {x10E3/uL} (Normal) Range: [...] PANEL, COMPREHENSIVE Comments: PATIENT WAS FASTINGPERFORMED BY: [facility]6370 [facility] [id number] (82476) ALT (SGPT) 16 [iU]/L (Normal) Range: 0-32 [...] Glucose, Serum 132 mg/dL (Abnormal) Range: 65-99 78-Gkm-106726:53 CREATININE CLEARANCE Comments: PATIENT NOT FASTINGPERFORMED BY: EVE iTiffin Ovomph2812 [facility] [id number] Information: [id number] START 10/30/13@8AM F INISH 10/31/13@8AM 2650ML (15252) Creatinine Clearance 44 mL/min (Abnormal) Range: 88-128 Comments: The above range is based on 1.73 square meter average body surfacearea. Creatinine, Ur 24hr 877.2 {mg/24_hr} (Normal) Range: 800.0-1800.0 Creatinine, Urine 33.1 mg/dL (Normal) Range: 15.0-278.0 eGFR If Africn Am 44 mL/min/1.73 (Abnormal) eGFR If NonAfricn Am 38 mL/min/1.73 (Abnormal) Creatinine, Serum 1.37 mg/dL (Abnormal) Range: 0.57-1.00 43-Qjl-801117:53 Total Protein,24 Hour Urine Comments: PATIENT NOT FASTINGPERFORMED BY: iTiffin Qqlkge7251 [facility] [id number] (38093) Prot,24hr calculated 3458.3 {mg/24_hr} (Abnormal) Range: 30.0-150.0 Protein,Total,Urine 130.5 mg/dL (Abnormal) Range: 0.0-15.0 96-Wnw-552100:31 HgA1C , Office (99343) HgA1C , Office 6.4 % (Normal) Range: 4.6 - 7.1 92-Oeb-272611:27 Microscopic Examination Comments: PATIENT WAS FASTINGPERFORMED BY: iTiffinKessler Institute for RehabilitationXaacvz6708 [facility] [id number] Bacteria Few (Normal) Mucus Threads Present (Normal) Epithelial Cells (non renal) 0-10 {/hpf} (Normal) Range: 0 - 10 RBC 3-10 {/hpf} (Abnormal) Range: 0 - 2 WBC 6-10 {/hpf} (Abnormal) Range: 0 - 5 :32 LIPID PANEL (43529) Comments: PATIENT WAS FASTINGPERFORMED BY: [employer] Xfikff6344 [facility] [id number] LDL/HDL Ratio 1.0 {ratio_units} (Normal) Range: 0.0-3.2 [...] RATIO Comments: PATIENT WAS FASTINGPERFORMED BY: [employer]70 [facility] [id number] (76994) AND (97070) Microalb/Creat Ratio 1998.9 {mg/g_creat} (Abnormal) Range: 0.0-30.0 Creatinine, Urine 73.4 mg/dL (Normal) Range: 15.0-278.0 Microalbumin, Urine 1467.2 ug/mL (Abnormal) Range: 0.0-17.0 :32 URINALYSIS, W/ MICRO (99863) Comments: PATIENT WAS FASTINGPERFORMED BY: [employer] Expl[employer] TechnologiesKessler Institute for RehabilitationZjvwpf3224 [facility] [id number] Microscopic Examination See below: (Normal) Comments: Microscopic was indicated and was performed. Nitrite, Urine Negative (Normal) Urobilinogen,Semi-Qn 0.2 mg/dL (Normal) Range: 0.0-1.9 Bilirubin Negative (Normal) Occult Blood Trace (Abnormal) Ketones Negative (Normal) Glucose Negative (Normal) Protein 3+ (Abnormal) WBC Esterase Trace (Abnormal) Appearance Clear (Normal) Urine-Color Yellow (Normal) pH 6.5 (Normal) Range: 5.0-7.5 Specific [place] 1.015 (Normal) Range: 1.005-1.030 :32 CBC WITH MANUAL DIFF Comments: PATIENT WAS FASTINGPERFORMED BY: [facility]6370 [facility] [id number] Information: [id number] (01365) Immature Grans (Abs) 0.0 {x10E3/uL} (Normal) Range: [...] PANEL, COMPREHENSIVE Comments: PATIENT WAS FASTINGPERFORMED BY: iTiffinKessler Institute for RehabilitationFlqtvt1728 [facility] [id number] (19083) ALT (SGPT) 16 [iU]/L (Normal) Range: 0-32 [...] Glucose, Serum 135 mg/dL (Abnormal) Range: 65-99 74-Kbi-21044:32 VITAMIN B-12 (CYANOCOBALAMIN) Comments: PATIENT WAS FASTINGPERFORMED BY: [facility]Up [facility]6370 [facility] [id number] (08810) Vitamin B12 >1999 pg/mL (Abnormal) Range: 211-946 68-Bwf-834442:01 HgA1C , Office (21462) HgA1C , Office 6.4 % (Normal) Range: 4.6 - 7.1 :37 METABOLIC PANEL, COMPREHENSIVE Comments: PATIENT WAS FASTINGPERFORMED BY: [facility] Dcazpf1143 [facility] [id number] (92704) ALT (SGPT) 12 [iU]/L (Normal) Range: 0-32 [...] Glucose, Serum 130 mg/dL (Abnormal) Range: 65-99 61-Aep-49829:37 Vitamin D Hydroxy (19526) Comments: PATIENT WAS FASTINGPERFORMED BY: [facility]CoK[facility] Institute for RehabilitationCfajhe8999 [facility] [id number] Vitamin D, 25-Hydroxy 47.4 ng/mL (Normal) Range: 30.0-100.0 Comments: Vitamin D deficiency has been defined by the Carbon ofMedicine and an Endocrine Society practice guideline as alevel of serum 25-OH vitamin D less than 20 ng/mL (1,2).The Endocrine Society went on to further define vitamin Dinsufficiency as a level between 21 and 29 ng/mL (2).1. IOM (Carbon of Medicine). 2010. Dietary reference intakes for calcium and D. [place]: The National Academies Press.2. Mira MF, Rosette LOPEZ, Tommy SWAIN, et al. Evaluation, treatment, and prevention of vitamin D deficiency: an Endocrine Society clinical practice guideline. JCEM. 2010; 96(7):1911-30. :37 LIPID PANEL (31788) Comments: PATIENT WAS FASTINGPERFORMED BY: [employer]6370 [facility] [id number] LDL/HDL Ratio 1.2 {ratio_units} (Normal) Range: 0.0-3.2 [...] MANUAL DIFF Comments: PATIENT WAS FASTINGPERFORMED BY: iTiffinKessler Institute for RehabilitationPgfgtc9983 [facility] [id number] Information: [id number] (77493) Immature Grans (Abs) 0.0 {x10E3/uL} (Normal) Range: [...] Qn, 24-Hr Comments: PATIENT NOT FASTINGPERFORMED BY: [place]inChristine [place] 6619470 [facility] [id number] Information: ADD [id number] AND DRAW FEE 99 6660 VOLUME 2600 164LBS 5' '3 Urine Prot,24hr calculated 920.4 {mg/24_hr} Range: 30.0-150.0 (Abnormal) Protein,Total,Urine 35.4 mg/dL Range: 0.0-15.0 (Abnormal) : Written Authorization WAR (Normal) Comments: PATIENT NOT FASTINGPERFORMED BY: [employer] ExpressJames [place] 4501170 [facility] [id number] Comments: Written Authorization Received.Authorization received from Chiqui BRICEÑO LPN [id number] by Marleen Sharma :52 Metabolic Panel, Basic Comments: PATIENT NOT FASTINGPERFORMED BY: [address] [id number] Information: ADD [id number] AND DRAW FEE 99 6660 VOLUME 2600 164LBS 5' '3 (28323) Calcium, Serum 9.7 mg/dL (Normal) Range: 8.6-10.2 [...] mg/dL (Abnormal) Range: 65-99 :52 CREATININE CLEARANCE (90105) Comments: PATIENT NOT FASTINGPERFORMED BY: [employer] [facility] [id number] Creatinine Clearance 46 mL/min (Abnormal) Range: 88-128 Comments: The above range is based on 1.73 square meter average body surfacearea. Creatinine, Ur 24hr 899.6 {mg/24_hr} (Normal) Range: 800.0-1800.0 Creatinine, Urine 34.6 mg/dL (Normal) Range: 15.0-278.0 :52 24 hour urine for Protein Comments: PATIENT NOT FASTINGPERFORMED BY: [employer]70 [facility] [id number] (75089) Microalb/Creat Ratio 695.4 {mg/g_creat} (Abnormal) Range: 0.0-30.0 Microalbumin, Urine 240.6 ug/mL (Abnormal) Range: 0.0-17.0 :13 HgA1C , Office (67891) HgA1C , Office 6.3 % (Normal) Range: 4.6 - 7.1 :01 Blood Glucose , Office (33297) Blood Glucose , Office 162 (Normal) 39-Dyd-508615:02 Microscopic Examination Comments: PATIENT NOT FASTINGPERFORMED BY: [employer] [place] RoadDublin [place] [id number] Bacteria Few (Normal) Mucus Threads Present (Normal) Epithelial Cells (non renal) 0-10 {/hpf} (Normal) Range: 0 - 10 RBC 0-3 {/hpf} (Normal) Range: 0 - 3 WBC 0-5 {/hpf} (Normal) Range: 0 - 5 40-Ciy-162105:43 ABDOMEN/PELVIS WITH CONTRAST Radiology Report See Note [...] Hebert M.D.October 19, 2012 at 2:42:14 PM [id number] Signed GP/GP If you are the referring physician and would like to [facility] theradiologist who provided this interpretation, please contact Yasmany Pond at [phone]. If this radiologist is unavailable, youwill be directed to another radiologist to assist. If y ou are a patient with a question regarding this report, pleasecontactyour referring physician directly. Professional Interpretation Provided By: [employer], Phone , These documents contain legally protected [...] documents. Dictated on 10/19/12 1442 by Singh MANN,Lindascribed on 10/19/12 1443 by ITS IMPORTSign by Misael Hebert MD on 10/19/12 1444 Sign by: Misael Hebert MD 06-Rtg-662813:59 TSH (75139) Comments: PATIENT WAS FASTINGPERFORMED BY: iT[employer] Ojctzn2872 [facility] [id number] TSH 1.230 {uIU/mL} (Normal) Range: 0.450-4.500 58-Luv-896461:59 LIPID PANEL (57134) Comments: PATIENT WAS FASTINGPERFORMED BY: [employer] Qvdyoc2688 [facility] [id number] LDL/HDL Ratio 0.5 {ratio_units} (Normal) Range: 0.0-3.2 LDL Cholesterol Calc 47 mg/dL (Normal) Range: 0-99 Cholesterol, Total 149 mg/dL (Normal) Range: 100-199 HDL Cholesterol 91 mg/dL (Normal) Comments: According to ATP-III Guidelines, HDL-C >59 mg/dL is considered anegative risk factor for CHD. Triglycerides 57 mg/dL (Normal) Range: 0-149 VLDL Cholesterol Cesar 11 mg/dL (Normal) Range: 5-40 72-Iil-495648:02 URINALYSIS, W/ MICRO Comments: PATIENT NOT FASTINGPERFORMED BY: [place] 4550670 [facility] [id number] Information: [id number] (30802) Microscopic Examination See below: (Normal) Nitrite, Urine Negative (Normal) Bilirubin Negative (Normal) Urobilinogen,Semi-Qn 0.2 mg/dL (Normal) Range: 0.0-1.9 Occult Blood Negative (Normal) Ketones Negative (Normal) Glucose Negative (Normal) Protein 3+ (Abnormal) WBC Esterase Negative (Normal) Appearance Clear (Normal) Urine-Color Yellow (Normal) pH 5.5 (Normal) Range: 5.0-7.5 Specific [place] 1.015 (Normal) Range: 1.005-1.030 68-Yoq-004281:59 CBC WITH MANUAL DIFF Comments: PATIENT WAS FASTINGPERFORMED BY: [facility]6370 [facility] [id number] Information: [id number] (97476) Immature Grans (Abs) 0.0 {x10E3/uL} (Normal) Range: [...] 3.77-5.28 WBC 4.8 {x10E3/uL} (Normal) Range: 3.4-10.8 57-Luz-041756:59 METABOLIC PANEL, COMPREHENSIVE Comments: PATIENT WAS FASTINGPERFORMED BY: [facility]6370 [facility] [id number] (97720) ALT (SGPT) 14 [iU]/L (Normal) Range: 0-32 [...] Glucose, Serum 104 mg/dL (Abnormal) Range: 65-99 4-Aaj-183781:37 HgA1C , Office (43410) HgA1C , Office 6.0 % (Normal) Range: 4.6 - 7.1 7-Wjc-118103:31 CRE CREAT 1.3 mg/dL (Abnormal) Range: 0.6-1.0 [...] Galan M.D.August 09, 2012 at 2:38:03 PM [phone] Signed PV/PV If you are the referring physician and would like to consult with theradiologist who provided this interpretation, please contact Donna Burnett M.D. at [phone]. If this radiologist is unavailable, youwillbe directed to another radiologist to assist. If you are a patient with a question regarding this report, pleasecontactyour referring physician evelyne cowan. Professional Interpretation Provided By: [employer], Phone , These documents contain legally protected [...] 08/09/12 1441 Sign by: Donna Martin MD [id number] CBC with manual diff Comments: PATIENT NOT FASTINGPERFORMED BY: [facility]CoK[facility] [id number] [facility] [id number] Information: [id number] ([id number]) Immature Grans (Abs) 0.0 {x10E3/uL} (Normal) Range: [...] Panel, Comprehensive Comments: PATIENT NOT FASTINGPERFORMED BY: [employer] [facility] [facility] [id number] (44238) ALT (SGPT) 19 [iU]/L (Normal) Range: 0-32 [...] mg/dL (Abnormal) Range: 65-99 :31 LIPID PANEL (98229) Comments: PATIENT WAS FASTINGPERFORMED BY: [employer] [facility] [id number] LDL/HDL Ratio 0.8 {ratio_units} (Normal) Range: 0.0-3.2 [...] MANUAL DIFF Comments: PATIENT WAS FASTINGPERFORMED BY: LabCoKessler Institute for RehabilitationLbtodp4572 [facility] [id number] Information: [id number] (61162) Immature Grans (Abs) 0.0 {x10E3/uL} (Normal) Range: [...] COMPREHENSIVE Comments: PATIENT WAS FASTINGPERFORMED BY: [facility] Dnytwj0257 [facility] [id number] (44213) ALT (SGPT) 22 [iU]/L (Normal) Range: 0-32 [...] (Abnormal) Range: 65-99 :45 HgA1C , Office (28708) HgA1C , Office 6.1 % (Normal) Range: 4.6 - 7.1 46-Brk-399401:16 CRE CREAT 1.1 mg/dL (Abnormal) Range: 0.6-1.0 37-Ged-70840:00 BRAIN W/WO CONTRAST Radiology Report See Note [...] Galan M.D.February 02, 2012 at 5:10:18 PM [id number] Signed PV/PV If you are the referring physician and w ould like to consult with theradiologist who provided this interpretation, please contact Donna Burnett M.D. at [phone]. If this radiologist is unavailable, alejandrallbe directed to another radiol ogist to assist. If you are a patient with a question regarding this report, pleasecontactyour referring physician directly. Professional Interpretation Provided By: Reta, Phone ,Fa x [phone] These documents contain legally protected and confidential [...] 02/02/121713 S ign by: Donna Martin MD 13-Gse-876206:16 DEXA BONE DENSITY STUDY (HP) Radiology Report [...] Coronel M.D.January 20, 2012 at 2:43:46 PM [phone] Signed KERA/KERA If you ar e the referring physician and would like to consult with theradiologist who provided this interpretation, please contact Yasmany Parnell at . If this radiologist is unavailable,youw ill be directed to another radiologist to assist. If you are a patient with a question regarding this report, pleasecontactyour referring physician directly. Professional Interpretation Provided By: Ra cramona, Phone , These documents contain legally protected [...] 01/20/12 1447 Sign by: David Coronel MD 75-Oxe-613542:15 BILAT SCRN DIGITAL & CAD Radiology Report [...] Coronel M.D.January 20, 2012 at 1:20:11 PM [phone] Signed KERA/KERA If you are the referring physician and would like to consult with theradiologist who provided this interpretation, please contact Yasmany Parnell at . If this radiologist is unavailable,youwill be directed to another radiologist to assist. If you are a patient with a question regarding this report, pleasecontactyour referring physician directly. Professional Interpretation Provided By: [employer], Phone , These documents contain legally protected [...] 01/20/12 1324 Sign by: David Coronel MD 0-Jkh-372995:56 PELVIC (NON ) Radiology Report See Note [...] Vuong M.D.January 10, 2012 at 8:39:09 PM [phone] Signed JL/JL If you are the referring physician and would like to consult with theradiologist who provided this inte rpretation, please contact Radha Vuong M.D. at [phone]. If this radiologist is unavailable, you will bedirected to another radiologist to assist. If you are a patient with a question regarding this r eport, pleasecontactyour referring physician directly. Professional Interpretation Provided By: [employer], Phone , PROCEDURE: ULTRASOUND OF THE FEMALE [...] Vuong M.D.January 10, 2012 at 8:40:07 PM [id number] Signed JL/JOHNNY If you are the referring physician and would like to consult with theradiologist who provided this interpretation, please contact Radha Vuong M.D. at [phone]. If this radiologist is unavailable, you will bedirected to another radiologist to assist. If you are a patient with a question regarding this report, pleasecontactyour referring ysician directly. Professional Interpretation Provided By: [employer], Phone , These documents contain legally protected [...] Dictated on 01/10/12 1309 by TATIANA VUONG [facility] ribed on 01/11/12 1113 by ITS IMPORTSign by RADHA VUONG MD on 01/11/12 1114 Sign by: RADHA VUONG MD 13-Dgh-70232:35 MICROALBUMIN: CREATININE RATIO Comments: PATIENT WAS FASTINGPERFORMED BY: [facility]6370 [facility] [id number] ([id number]) AND (14314) Microalb/Creat Ratio 829.4 {mg/g_creat} (Abnormal) Range: 0.0-30.0 Microalbumin, Urine 437.1 ug/mL (Abnormal) Range: 0.0-17.0 Creatinine, Urine 52.7 mg/dL (Normal) Range: 15.0-278.0 :35 CBC WITH MANUAL DIFF Comments: PATIENT WAS FASTINGPERFORMED BY: [facility] Iucjze5674 [facility] [id number] Information: [id number] (34444) Immature Grans (Abs) 0.0 {x10E3/uL} (Normal) Range: [...] PANEL, COMPREHENSIVE Comments: PATIENT WAS FASTINGPERFORMED BY: [employer]70 [facility] [id number] (08904) ALT (SGPT) 15 [iU]/L (Normal) Range: 0-32 [...] mg/dL (Abnormal) Range: 65-99 :35 LIPID PANEL (37671) Comments: PATIENT WAS FASTINGPERFORMED BY: [employer]6370 [facility] [id number] LDL/HDL Ratio 0.9 {ratio_units} (Normal) Range: 0.0-3.2 LDL Cholesterol Calc 72 mg/dL (Normal) Range: 0-99 HDL Cholesterol 83 mg/dL (Normal) Comments: According to ATP-III Guidelines, HDL-C >59 mg/dL is considered anegative risk factor for CHD. VLDL Cholesterol Cesar 18 mg/dL (Normal) Range: 5-40 Triglycerides 90 mg/dL (Normal) Range: 0-149 Cholesterol, Total 173 mg/dL (Normal) Range: 100-199 :15 HgA1C , Office (78307) HgA1C , Office 6.2 % (Normal) Range: 4.6 - 7.1 :30 CBC WITH MANUAL DIFF Comments: PATIENT WAS FASTINGPERFORMED BY: LabCoKessler Institute for RehabilitationZscksa5545 [facility] [id number] Information: [id number] (67894) Immature Grans (Abs) 0.0 {x10E3/uL} (Normal) Range: [...] PANEL, COMPREHENSIVE Comments: PATIENT WAS FASTINGPERFORMED BY: [facility]CoK[facility] Institute for RehabilitationMzzjpg2811 [facility] [id number] (16421) ALT (SGPT) 19 [iU]/L (Normal) Range: 0-40 [...] mg/dL (Abnormal) Range: 65-99 :30 LIPID PANEL (44280) Comments: PATIENT WAS FASTINGPERFORMED BY: EVE [facility] Rcszbq0606 [facility] [id number] LDL/HDL Ratio 0.9 {ratio_units} (Normal) Range: 0.0-3.2 [...] 100-199 Comments: Please note reference interval change 50-Lez-795293:48 Rapid Flu (68734 x 2) Influenza A Ag negative (Normal) [...] redmond M.D.November 05, 2011 at 3:25:08 PM [phone] Signed GP/GP If you are the referring physician and would like to consult with theradiologist who provided this interpretation, please contact Yasmany Pond at [phone]. If this radiologist is unavailable, youwill be directed to another radiologist to assist. If you are a patient with a question regarding this report, ple asecontactyour referring physician directly. Professional Interpretation Provided By: [employer], Phone , These documents contain legally protected [...] redmond M.D.November 05, 2011 at 3:25:08 PM [phone] Signed GP/GP If you are the referring physician and would like to consult with theradiologist who provided this interpretation, please contact Yasmany Pond at [phone]. If this radiologist is unavailable, youwill be directed to another radiologist to assist. If you are a patient with a question regarding this report, ple asecontactyour referring physician directly. Professional Interpretation Provided By: [employer], Phone , These documents contain legally protected [...] 11/05/11 1552 Sign by: Misael Hebert MD 23-Gox-552990:20 METABOLIC PANEL, Comments: PATIENT WAS FASTINGPERFORMED BY: [facility]CoKessler Institute for RehabilitationKckccj7340 [facility] [id number] Information: [id number],2ND ORDER NO DRAW F EE COMPREHENSIVE (71082) ALT (SGPT) 31 [iU]/L (Normal) Range: 0-40 [...] Clearance Comments: PATIENT WAS FASTINGPERFORMED BY: EVE iTiffinsyl Eoutil2818 [facility] [id number] Information: 10/30@6AM 10/31@730AM Creatinine Clearance 58 mL/min [...] 24-Hr Comments: PATIENT WAS FASTINGPERFORMED BY: EVE [employer]70 [facility] [id number] Urine Prot,24hr calculated 1023.8 {mg/24_hr} (Abnormal) Range: 30.0-150.0 Protein,Total,Urine 52.5 mg/dL (Abnormal) Range: 0.0-15.0 :04 HgA1C , Office (56392) HgA1C , Office 6.1 % (Normal) Range: [...] regarding this repor t, please call our [id number] line @ Dictated on 07/27/11 1040 by GAYE PEREZ MD RTranscribed on 07/28/11 122 by ITS IMPORTSign by GAYE PEREZ MD on 07/28/111224 Sign by: GAYE PEREZ MD 30-Ery-89694:54 Vitamin D Hydroxy (04146) Comments: PATIENT WAS FASTINGPERFORMED BY: [facility]6370 [facility] [id number] Vitamin D, 25-Hydroxy 48.8 ng/mL (Normal) Range: 30.0-100.0 Comments: Vitamin D deficiency has been defined by the Carbon ofMedicine and an Endocrine Society practice guideline as alevel of serum 25-OH vitamin D less than 20 ng/mL (1,2).The Endocrine Society went on to further define vitamin Dinsufficiency as a level between 21 and 29 ng/mL (2).1. IOM (Carbon of Medicine). 2010. Dietary reference intakes for calcium and D. [place]: The National Academies Press.2. Mira MF, Rosette LOPEZ, Tommy SWAIN, et al. Evaluation, treatment, and prevention of vitamin D deficiency: an Endocrine Society clinical practice guideline. JCEM. 2010; 96(7):1911-30. :54 LIPID PANEL (86718) Comments: PATIENT WAS FASTINGPERFORMED BY: [employer] Kgpiid7390 [facility] [id number] LDL/HDL Ratio 1.0 {ratio_units} (Normal) Range: 0.0-3.2 [...] DIFF Comments: PATIENT WAS FASTINGPERFORMED BY: [facility] Jceevm3749 [facility] [id number] Information: ADD [id number] AND DRAW FEE 99 7499 (62889) Immature Grans (Abs) 0.0 {x10E3/uL} (Normal) Range: [...] PANEL, COMPREHENSIVE Comments: PATIENT WAS FASTINGPERFORMED BY: LabCoKessler Institute for RehabilitationTyrdde0780 [facility] [id number] (55185) ALT (SGPT) 48 [iU]/L (Abnormal) Range: 0-40 [...] (Abnormal) Range: 65-99 :18 HgA1C , Office (38271) HgA1C , Office 6.1 % (Normal) Range: 4.6 - 7.1 :18 Blood Glucose , Office (59649) Blood Glucose , Office 103 (Normal) 73-Isw-10043:00 ABDOMEN WITH AND W/O CONTRAST Radiology Report [...] radiologist regarding this report, please call our [id number] line @ Dictated on 03/18/11 1715 by Keaton MANN,NadieTranscribed on 03/22/11 1401 by ITS IMPORTSign by Jeanette Hill MD on 03/22/11 1402 Sign by: Jeanette Pugh MD 54-Bty-896551:29 SERUM CRE & GFR CREAT,SERUM 1.1 mg/dL (Abnormal) Range: 0.6-1.0 18-Gpt-08007:00 BRAIN W/WO CONTRAST Radiology Report See Note [...] seen in the right frontal white matter tack maker ior to themasswithout interval change. The cortical [...] Mario MANN,Donna on 03/02/11 173 Sign by: Mario MANN,Donna 00-Fko-34775:00 UPPER EXT. JOINT ONLY(ROUTINE) Radiology Report See [...] Ankur Duncan on 03/04/11 103 Sign by: nAkur Duncan 56-Zzk-841596:08 SHOULDER,MIN 2 VIEWS Radiology Report See Note [...] on 01/29/111715 Sign by: Aakash Barbosa MD 18-Bio-75728:44 ABDOMEN/PELVIS WITH CONTRAST Radiology Report See Note [...] 02/01/11 1021 Sign by: ALEJANDRO DRUMMOND DO 18-Pok-241569:57 SINUS/FACIAL BONE Radiology Report See Note (Normal) [...] 01/19/11 1448 Sign by: Misael Hebert MD 39-Fcb-64513:00 BRAIN W/WO CONTRAST Radiology Report See Note [...] addition, there is a small region of hvakgugboA9eolxhkifus along the anterior margin of the mass, [...] on 01/19/111650 Sign by: GAYE PEREZ MD 55-Lbo-03429:00 BRAIN/HEAD W/WO CONTRAST Radiology Report See Note [...] 01/19/11 1447 Sign by: Misael Hebert MD 72-Oyn-596408:08 [facility] DIGITAL & CAD Radiology Report See Note [...] RATIO Comments: PATIENT NOT FASTINGPERFORMED BY: [facility] Yiitct5927 N2N [facility] [id number] (63245) AND (53559) Microalb/Creat Ratio 1028.4 {mg/g_creat} (Abnormal) Range: 0.0-30.0 Microalbumin, Urine 1341.0 ug/mL (Abnormal) Range: 0.0-17.0 Creatinine, Urine 130.4 mg/dL (Normal) Range: 15.0-278.0 :20 CBC WITH MANUAL DIFF (35418) Comments: PATIENT NOT FASTINGPERFORMED BY: [facility] Otelxp8580 [facility] [id number] Immature Grans (Abs) 0.0 {x10E3/uL} (Normal) Range: [...] {x10E3/uL} (Normal) Range: 4.0-10.5 :20 LIPID PANEL (01551) Comments: PATIENT NOT FASTINGPERFORMED BY: iTiffinKessler Institute for RehabilitationBwehsj5034 [facility] [id number] LDL/HDL Ratio 0.9 {ratio_units} (Normal) Range: 0.0-3.2 [...] PANEL, COMPREHENSIVE Comments: PATIENT NOT FASTINGPERFORMED BY: [employer] Exploration TechnologiesKessler Institute for RehabilitationIdkket0886 [facility] [id number] (45783) ALT (SGPT) 28 [iU]/L (Normal) Range: 0-40 [...] (Abnormal) Range: 65-99 :39 HgA1C , Office (96227) HgA1C , Office 6.5 % (Normal) Range: 4.6 - 7.1 :39 Blood Glucose , Office (73876) Blood Glucose , Office 128 (Normal) :19 CBC With Differential/Platelet Comments: PATIENT WAS FASTINGPERFORMED BY: [facility] Tvnzan4617 [facility] [id number] Immature Grans (Abs) 0.0 {x10E3/uL} (Normal) Range: [...] 3.80-5.10 WBC 5.6 {x10E3/uL} (Normal) Range: 4.0-10.5 6-Cyk-600752:19 Comp. Metabolic Panel (14) Comments: PATIENT WAS FASTINGPERFORMED BY: [facility] Xhlpgl0223 [facility] [id number]; appt 01/11/11 ALT (SGPT) 18 [iU]/L (Normal) [...] With LDL/HDL Comments: PATIENT WAS FASTINGPERFORMED BY: LabCoKessler Institute for RehabilitationQqvkkh7195 [facility] [id number] Ratio LDL/HDL Ratio 1.0 {ratio_units} Range: 0.0-3.2 [...] 0.800 {uIU/mL} Comments: PATIENT WAS FASTINGPERFORMED BY: LabCoKessler Institute for RehabilitationVjlxgf6004 [facility] [id number] 2:19 (Normal) Range: 0.450-4.500 Vitamin D, 25-Hydroxy 44.0 ng/mL (Normal) Comments: PATIENT WAS FASTINGPERFORMED BY: LabCoKessler Institute for RehabilitationHazugx3578 [facility] [id number] 2:19 Range: 32.0-100.0 Comments: Effective February 22, 2011 Vitamin D, 25-Hydroxy reference intervals will be changing to 30-100. .Recent studies consider the lower li sandra of 32.0 ng/mL to be athreshold for optimal health.Otf HAYES. J Nutr. 2004;135(2):317-22. :54 HgA1C , Office (86638) HgA1C , Office 6.6 % (Normal) Range: 4.6 - 7.1 :54 Blood Glucose , Office (16931) Blood Glucose , Office 134 (Normal) :40 Creatinine Clearance Comments: PERFORMED BY: LabCoKessler Institute for RehabilitationPrfpsu9602 [facility] [id number] Information: 10/07@7AM 10/08@3AM Creatinine Clearance 56 mL/min [...] Total, Qn, 24-Hr Comments: PERFORMED BY: [facility] Wqlghn5081 [facility] [id number] Urine Prot,24hr calculated 610.5 {mg/24_hr} (Abnormal) Range: 30.0-150.0 Protein,Total,Urine 40.7 mg/dL (Abnormal) Range: 0.0-15.0 :46 Vitamin D Hydroxy (23908) Comments: PATIENT WAS FASTINGPERFORMED BY: LabCoKessler Institute for RehabilitationEcbkyp0289 [facility] [id number] Vitamin D, 25-Hydroxy 36.5 ng/mL (Normal) Range: 32.0-100.0 Comments: Recent studies consider the lower limit of 32.0 ng/mL to be athreshold for optimal health.Otf HAYES. J Nutr. 2004;135(2):317-22. :46 METABOLIC PANEL, COMPREHENSIVE Comments: PATIENT WAS FASTINGPERFORMED BY: LabCoKessler Institute for RehabilitationKalzko0847 [facility] [id number] (42069) ALT (SGPT) 34 [iU]/L (Normal) Range: 0-40 [...] mg/dL (Abnormal) Range: 65-99 :46 LIPID PANEL (02211) Comments: PATIENT WAS FASTINGPERFORMED BY: [employer]70 [employer] [facility] CenterFriendsigniaW[facility] [id number] LDL Cholesterol Calc 85 mg/dL (Normal) Range: [...] MANUAL DIFF Comments: PATIENT WAS FASTINGPERFORMED BY: [employer] [facility] [id number] Information: [id number]; appt 10/12/10 (31147) Immature Grans (Abs) 0.0 {x10E3/uL} (Normal) Range: [...] (Normal) Range: 4.0-10.5 :07 HgA1C , Office (01192) HgA1C , Office 6.6 % (Normal) Range: 4.6 - 7.1 :07 Blood Glucose , Office (67019) Blood Glucose , Office 114 (Normal) 76-Sqm-960488:00 Creatinine Clearance Comments: PERFORMED BY: LabCoKessler Institute for RehabilitationEhhlzr9802 [facility] [id number] Information: 12/31@8AM 01/01@4AM Creatinine Clearance 48 mL/min [...] Creatinine, Serum 1.20 mg/dL (Abnormal) Range: 0.57-1.00 96-Rgx-684896:00 Protein Total, Qn, 24-Hr Comments: PERFORMED BY: [facility]6370 [facility] [id number] Urine Prot,24hr calculated 1070.6 {mg/24_hr} (Abnormal) Range: 30.0-150.0 Protein,Total,Urine 79.3 mg/dL (Abnormal) Range: 0.0-15.0 42-Bjh-238697:48 BILAT SCRN DIGITAL & CAD Radiology Report See Note (Normal) Comments: Exam Number: [id number] MAMMOGRAPHY - BILATERAL SCREENING INDICATION:Routine annual screening [...] of attaching a ResultCode to this exam.ADDENDUM: [id number] HPBI/MDS Reported By: MISAEL HEBERT 01-Gzh-923364:48 DEXA BONE DENSITY STUDY (HP) Radiology Report See Note (Normal) Comments: Exam Number: [id number] CLINICAL:This is a 69-year-old female patient with postmenopausal screening. EXAMINATION:DUAL ENERGY X-RAY ABSORPTIOMETRY / DEXA. TECHNIQUE:Bone Density Measurements (BMD) of lumb ar spine and bilateral hipswere obtained using a Nex[employer] scanner.. COMPARISON:None. FINDINGS: Lumbar Spine (L1-L4): g/cm2 [...] Osteoporosis Foundation http://www.nof.org Reported By: MISAEL HEBERT 74-Fbc-060064:29 HgA1C , Office (76791) HgA1C , Office 6.5 % (Normal) Range: 4.6 - 7.1 91-Bjs-434550:29 Blood Glucose , Office (01950) Blood Glucose , Office 109 (Normal) 33-Ver-69046:05 CBC With Differential/Platelet Comments: PATIENT WAS FASTINGPERFORMED BY: LabCoKessler Institute for RehabilitationIkjnpb9570 [facility] [id number] Immature Grans (Abs) 0.0 {x10E3/uL} (Normal) Range: [...] 3.80-5.10 WBC 3.9 {x10E3/uL} (Abnormal) Range: 4.0-10.5 00-Exf-42649:05 Comp. Metabolic Panel (14) Comments: PATIENT WAS FASTINGPERFORMED BY: LabCoKessler Institute for RehabilitationCohcpf1547 [facility] [id number] ALT (SGPT) 20 [iU]/L (Normal) Range: 0-40 [...] Glucose, Serum 123 mg/dL (Abnormal) Range: 65-99 59-Waf-94118:05 Lipid Panel With LDL/HDL Comments: PATIENT WAS FASTINGPERFORMED BY: [facility] Mbhmhx9625 [facility] [id number] Ratio HDL Cholesterol 54 mg/dL (Normal) Comments: [...] ng/mL (Normal) Comments: PATIENT WAS FASTINGPERFORMED BY: [employer]70 [facility] [id number] Range: 32.0-100.0 Comments: Recent studies consider the lower limit of 32.0 ng/mL to be athreshold for optimal health.Otf HAYES. J Nutr. 2004;135(2):317-22. 04-Tel-43083:41 SPLEEN (HP) Radiology Report See Note (Normal) Comments: Exam Number: [id number] ULTRASOUND OF THE SPLEEN A goal directed [...] Protein, 0.5 mg/L (Normal) Comments: PERFORMED BY: [employer]6370 [facility] [id number] 10:54 Quant Range: 0.0-4.9 17-Jun-2009 Hemoglobin A1c 6.3 % (Abnormal) Comments: PERFORMED BY: [employer]70 [facility] [id number] 10:54 Range: 4.8-5.6 Comments: Increased risk for diabetes: 5.7 - 6.4Diabetes: >6.4Glycemic control for adults with diabetes: <7.0.Please note reference interval change 17-Jun-2009 Sedimentation 4 mm/h (Normal) Comments: PERFORMED BY: iT[employer]in Ileasv7472 [facility] [id number] 10:54 Rate-Westergren Range: 0-30 17-Jun-2009 Vitamin B12 1372 pg/mL Comments: PERFORMED BY: [employer] [facility]6370 [facility] [id number] 10:54 (Abnormal) Range: 211-911 Comments: Effective July 14, 2009, Vitamin B12 will bechanging to the [place] ECLIA methodology. Thereference interval will be changing to:211 - 946 pg/mL 17-Jun-2009 Vitamin D, 25-Hydroxy 37.7 ng/mL Comments: PERFORMED BY: [facility] Ykkbfi1795 [facility] [id number] 10:54 (Normal) Range: 32.0-100.0 Comments: Recent studies consider the lower limit of 32.0 ng/mL to be athreshold for optimal health.Otf HAYES. J Nutr. 2004;135(2):317-22. 05-Xga-674649:34 Vitamin D Hydroxy Comments: PATIENT NOT FASTINGPERFORMED BY: [facility]6370 [facility] [id number] Information: [id number],2ND ORDER NO DRAW F EE (60897) Vitamin D, 25-Hydroxy 48.5 ng/mL (Normal) Range: 30.0-100.0 Comments: Vitamin D deficiency has been defined by the Carbon ofMedicine and an Endocrine Society practice guideline as alevel of serum 25-OH vitamin D less than 20 ng/mL (1,2).The Endocrine Society went on to further define vitamin Dinsufficiency as a level between 21 and 29 ng/mL (2).1. IOM (Carbon of Medicine). 2010. Dietary reference intakes for calcium and D. [place]: The National Academies Press.2. Mira MF, Rosette [place], Tommy SWAIN, et al. Evaluation, treatment, and prevention of vitamin D deficiency: an Endocrine Society clinical practice guideline. JCEM. 2010; 96(7):1911-30. 83-Vow-08344:50 HgA1C , Office (40209) HgA1C , Office 6.7 % (Normal) Range: 4.6 - 7.1 :50 Blood Glucose , Office (89031) Blood Glucose , Office 117 (Normal) 83-Ygg-865278:12 CBC With Differential/Platelet Comments: PERFORMED BY: EVE LabCoKessler Institute for RehabilitationHilank3279 [facility] [id number] Information: 06/10@6AM3/10@330AM Hematology Comments: Note: (Normal) Comments: [...] 3.80-5.10 WBC 3.6 {x10E3/uL} (Abnormal) Range: 4.0-10.5 60-Jvh-339533:12 Comp. Metabolic Panel (14) Comments: PERFORMED BY: LabCoKessler Institute for RehabilitationUsnatm7625 [facility] [id number] Alkaline Phosphatase, S 68 [iU]/L (Normal) Range: [...] Glucose, Serum 124 mg/dL (Abnormal) Range: 65-99 14-Xin-010706:12 Creatinine Clearance Comments: PERFORMED BY: [facility]6370 [facility] [id number] Creatinine Clearance 49 mL/min (Abnormal) Range: 88-128 Comments: The above range is based on 1.73 square meter average body surfacearea. Creatinine, Ur 24hr 800.0 {mg/24_hr} (Normal) Range: 800.0-1800.0 Creatinine, Urine 40.0 mg/dL (Normal) Range: 15.0-278.0 99-Qhu-193181:12 Lipid Panel With LDL/HDL Comments: PERFORMED BY: [employer] [facility] [id number] Ratio HDL Cholesterol 61 mg/dL (Normal) Comments: According to ATP-III Guidelines, HDL-C >59 mg/dL is considered anegative risk factor for CHD. LDL Cholesterol Calc 74 mg/dL (Normal) Range: 0-99 LDL/HDL Ratio 1.2 {ratio_units} (Normal) Range: 0.0-3.2 VLDL Cholesterol Cesar 17 mg/dL (Normal) Range: 5-40 Cholesterol, Total 152 mg/dL (Normal) Range: 100-199 Triglycerides 87 mg/dL (Normal) Range: 0-149 11-Ibu-394974:12 Protein Total, Qn, 24-Hr Comments: PERFORMED BY: [employer]70 [facility] [id number] Urine Prot,24hr calculated 1172.0 {mg/24_hr} Range: 30.0-150.0 (Abnormal) Protein,Total,Urine 58.6 mg/dL (Abnormal) Range: 0.0-15.0 TSH 1.280 {uIU/mL} Comments: PERFORMED BY: iTiffinKessler Institute for RehabilitationJqnhlt8628 [facility] [id number] 1:12 (Normal) Range: 0.450-4.500 :58 HgA1C , Office (57244) HgA1C , Office 6.0 % (Normal) Range: 4.6 - 7.1 :58 Blood Glucose , Office (99081) Blood Glucose , Office 113 (Normal) 5-Dhb-246173:03 CBC With Differential/Platelet Comments: PATIENT WAS FASTINGPERFORMED BY: iTiffinKessler Institute for RehabilitationQhydzz1355 [facility] [id number] Baso (Absolute) 0.0 {x10E3/uL} (Normal) Range: 0.0-0.2 [...] 11.7-15.0 WBC 3.2 {x10E3/uL} (Abnormal) Range: 4.0-10.5 5-Sca-027528:03 Comp. Metabolic Panel (14) Comments: PATIENT WAS FASTINGPERFORMED BY: [facility]6370 [facility] [id number] A/G Ratio 2.0 (Normal) Range: 1.1-2.5 Albumin, [...] With LDL/HDL Comments: PATIENT WAS FASTINGPERFORMED BY: [place] [id number] Ratio Cholesterol, Total 167 mg/dL (Normal) Range: [...] ng/mL (Normal) Comments: PATIENT WAS FASTINGPERFORMED BY: [employer]6370 [address] CommerceWakeMed [facility] Hospital [id number] :03 Range: 32.0-100.0 Comments: Recent studies consider the lower limit of 32.0 ng/mL to be athreshold for optimal health.Otf HAYES. J Nutr. 2004;135(2):317-22. 78-Ucd-834000:32 Urinalysis, Office (44433) UA - BILIRUBIN Negative (Normal) UA - BLOOD Hemolyzed Trace (Normal) UA - GLUCOSE Negative (Normal) UA - KETONES Negative mg/dL (Normal) UA - LEUKOCYTE ESTERASE Negative (Normal) UA - NITRITE Negative (Normal) UA - PH 6.5 (Normal) UA - PROTEIN 300 mg/dL (Normal) UA - SPECIFIC GRAVITY 1.020 (Normal) URINE UROBILINGN JATINDER TIMED 2 mg/dL (Normal) 2-Twr-447463:19 URINE SETH CULTURE-JATINDER COL Comments: PATIENT NOT FASTINGClinical Information: SRC:UR ADD [id number] PERFORMED BY: EVE [facility] Xnqfmx1795 [facility] [id number] COUNT (19294) Result 1 ECV (Normal) Comments: Escherichia coli, [...] report (Normal) Culture,Comprehensiv e 09-Jan-20098:17 Urinalysis, Office (34517) UA - BILIRUBIN Negative (Normal) UA - BLOOD Hemolyzed Large (Normal) UA - GLUCOSE Negative (Normal) UA - KETONES Negative mg/dL (Normal) UA - LEUKOCYTE ESTERASE Moderate (Normal) UA - NITRITE Negative (Normal) UA - PH 7.0 (Normal) UA - PROTEIN 300 mg/dL (Normal) UA - SPECIFIC GRAVITY 1.020 (Normal) URINE UROBILINGN JATINDER TIMED 2 mg/dL (Normal) 4-Fbe-451987:05 Comp. Metabolic Panel (14) Comments: PATIENT WAS FASTINGPERFORMED BY: iTiffin Bekqxy1967 [facility] [id number] A/G Ratio 1.7 (Normal) Range: 1.1-2.5 Albumin, [...] Sodium, Serum 142 mmol/L (Normal) Range: 135-145 8-Urj-261030:05 Hepatic Function Panel (7) Comments: PATIENT WAS FASTINGPERFORMED BY: iTiffinKessler Institute for RehabilitationSafned8835 [facility] [id number] Bilirubin, Direct 0.12 mg/dL (Normal) Range: 0.00-0.40 :05 Lipid Panel With LDL/HDL Comments: PATIENT WAS FASTINGPERFORMED BY: [facility] Ashqsj7613 [facility] [id number] Ratio Cholesterol, Total 170 mg/dL (Normal) Range: [...] (Normal) Comments: PATIENT WAS FASTINGPERFORMED BY: [facility] Aplfdf2626 [facility] [id number] :05 Range: 2.5-4.5 PTH, Intact 19 pg/mL (Normal) Comments: PATIENT WAS FASTINGPERFORMED BY: [facility] Qprhna8457 [facility] [id number] :05 Range: 15-65 Vitamin D, 25-Hydroxy 38.9 ng/mL (Normal) Comments: PATIENT WAS FASTINGPERFORMED BY: [facility] Tfcwoc8951 [facility] [id number] :05 Range: 32.0-100.0 Comments: Recent studies consider the lower limit of 32.0 ng/mL to be athreshold for optimal health.Otf HAYES. J Nutr. 2004;135(2):317-22. :40 HgA1C , Office (43127) HgA1C , Office 6.0 % (Normal) Range: 4.6 - 7.1 :40 Blood Glucose , Office (34238) Blood Glucose , Office 109 (Normal) :42 CBC With Differential/Platelet Comments: PATIENT WAS FASTINGPERFORMED BY: [facility] Dpuuvl8888 [facility] [id number] Baso (Absolute) 0.0 {x10E3/uL} (Normal) Range: 0.0-0.2 [...] 11.7-15.0 WBC 4.2 {x10E3/uL} (Normal) Range: 4.0-10.5 02-Npb-988098:42 Comp. Metabolic Panel (14) Comments: PATIENT WAS FASTINGPERFORMED BY: LabCoKessler Institute for RehabilitationEomkin3065 [facility] [id number] A/G Ratio 1.6 (Normal) Range: 1.1-2.5 Albumin, [...] Sodium, Serum 140 mmol/L (Normal) Range: 135-145 5-Kgw-645172:09 FECAL OCCULT HGB ASSAY, QUAL, 1-3 SIMULTANEOUS DETERMINATIONS (96699) FECAL OCCULT HGB ASSAY, QUAL, 1-3 SIMULTANEOU neg (Normal) :42 Microscopic Examination Comments: PATIENT WAS FASTINGPERFORMED BY: LabCoKessler Institute for RehabilitationOwcnob7697 [facility] [id number] Bacteria None seen (Normal) Cast Type Hyaline casts (Normal) Casts Present {/lpf} (Abnormal) Epithelial Cells (non renal) 0-10 {/hpf} (Normal) Range: 0 - 10 Mucus Threads Present (Normal) RBC 0-3 {/hpf} (Normal) Range: 0 - 3 WBC 0-5 {/hpf} (Normal) Range: 0 - 5 :42 URINALYSIS W/O MICRO (85909) Comments: PATIENT WAS FASTINGPERFORMED BY: iTiffinChristine Ville 6619470 [facility] [id number] Appearance Clear (Normal) Bilirubin Negative (Normal) Glucose Negative (Normal) Ketones Negative (Normal) Microscopic Examination See below: (Normal) Nitrite, Urine Negative (Normal) Occult Blood Negative (Normal) pH 5.0 (Normal) Range: 5.0-7.5 Protein 1+ (Abnormal) Specific [place] 1.013 (Normal) Range: 1.005-1.030 Urine-Color Yellow (Normal) Urobilinogen,Semi-Qn 0.2 mg/dL (Normal) Range: 0.0-1.9 WBC Esterase 1+ (Abnormal) :42 MICROALBUMIN: CREATININE RATIO Comments: PATIENT WAS FASTINGPERFORMED BY: iTiffinChristine V[place] 6619470 [facility] [id number] (86010) AND (72261) Creatinine, Urine 76.1 mg/dL (Normal) Range: 15.0-278.0 Microalb/Creat Ratio 292.1 {ug/mg_creat} (Abnormal) Range: 0.0-30.0 Microalbumin, Urine 222.3 ug/mL (Abnormal) Range: 0.0-17.0 :42 CBC WITH MANUAL DIFF (09679) Comments: PATIENT WAS FASTINGClinical Information: ADD DRAW FEE 611790 ADD J 69890 PERFORMED BY: LabAcademic Management ServicesKessler Institute for RehabilitationFcvfhm1496 [facility] [id number] Baso (Absolute) 0.0 {x10E3/uL} (Normal) Range: 0.0-0.2 [...] PANEL, COMPREHENSIVE Comments: PATIENT WAS FASTINGPERFORMED BY: LabCoKessler Institute for RehabilitationFdlase0253 [facility] [id number] (67338) A/G Ratio 1.8 (Normal) Range: 1.1-2.5 Albumin, [...] Sodium, Serum 141 mmol/L (Normal) Range: 135-145 5-Urx-527238:23 HgA1C , Office (22140) HgA1C , Office 6.0 % (Normal) Range: 4.6 - 7.1 5-Lbn-596841:23 Blood Glucose , Office (24870) Blood Glucose , Office 103 (Normal) 71-Hew-029844:38 CBC WITH MANUAL DIFF (65001) Comments: PATIENT WAS FASTINGClinical Information: ADD DRAW FEE 064087 ADD J 01785 PERFORMED BY: [facility] [id number] Baso (Absolute) 0.0 {x10E3/uL} (Normal) Range: 0.0-0.2 [...] 11.7-15.0 WBC 4.0 {x10E3/uL} (Normal) Range: 4.0-10.5 05-Arp-430495:38 METABOLIC PANEL, COMPREHENSIVE Comments: PATIENT WAS FASTINGPERFORMED BY: LabCoKessler Institute for RehabilitationRjcjea2168 [facility] [id number] (34532) A/G Ratio 1.8 (Normal) Range: 1.1-2.5 Albumin, [...] Sodium, Serum 142 mmol/L (Normal) Range: 135-145 68-Lmv-624710:38 HEPATIC FUNCTION PANEL Comments: PATIENT WAS FASTINGPERFORMED BY: NanotionWakeMed [facility] Hospital [id number] (77979) Bilirubin, Direct 0.08 mg/dL (Normal) Range: 0.00-0.40 :38 LIPID PANEL (22529) Comments: PATIENT WAS FASTINGPERFORMED BY: iTiffin [employer] [id number] Cholesterol, Total 200 mg/dL (Abnormal) Range: 100-199 [...] Cholesterol Cesar 18 mg/dL (Normal) Range: 5-40 9-Etp-526621:36 HgA1C , Office (12128) HgA1C , Office 6.1 % (Normal) Range: 4.6 - 7.1 :36 Blood Glucose , Office (56050) Blood Glucose , Office 98 (Normal) 49-Nna-672529:33 CBC With Differential/Platelet Comments: PATIENT WAS FASTINGClinical Information: SRC:UR PERFORMED BY: iTiffin Iunlfx2933 [facility] [id number] Baso (Absolute) 0.0 {x10E3/uL} (Normal) Range: 0.0-0.2 [...] 11.7-15.0 WBC 4.8 {x10E3/uL} (Normal) Range: 4.0-10.5 28-Hyy-817149:33 Comp. Metabolic Panel (14) Comments: PATIENT WAS FASTINGPERFORMED BY: LabCoKessler Institute for RehabilitationCzoehv9650 [facility] [id number] A/G Ratio 1.6 (Normal) Range: 1.1-2.5 Albumin, [...] Serum 92 mg/dL (Normal) Range: 65-99 If -Latvian 57 mL/min/1.73 Comments: Note: Persistent reduction for [...] Sodium, Serum 142 mmol/L (Normal) Range: 135-145 21-Gqu-144220:33 Lipid Panel With LDL/HDL Comments: PATIENT WAS FASTINGPERFORMED BY: NoteWagonlin6370 [facility] [id number] Ratio Cholesterol, Total 174 mg/dL (Normal) Range: 100-199 HDL Cholesterol 67 mg/dL (Normal) Comments: According to ATP-III Guidelines, HDL-C >59 mg/dL is considered anegative risk factor for CHD. LDL Cholesterol Calc 85 mg/dL (Normal) Range: 0-99 LDL/HDL Ratio 1.3 {ratio_units} (Normal) Range: 0.0-3.2 Triglycerides 110 mg/dL (Normal) Range: 0-149 VLDL Cholesterol Cesar 22 mg/dL (Normal) Range: 5-40 35-Lbv-681805:33 Urine Culture,Comprehensive Comments: PATIENT WAS FASTINGPERFORMED BY: [employer]6370 [facility] [id number] Antimicrobial MIHEAD (Normal) Comments: S = Susceptible; [...] Enterococcus. (Normal) Urine Final report (Normal) Culture,Comprehensive 6-Iga-994377:10 HgA1C , Office (24643) HgA1C , Office 5.9 % (Normal) Range: [...] mL (Normal) URINE PROTEIN 20.0 mg/dL (Abnormal) 73-Vol-023806:17 Urine Culture,Comprehensive Comments: Clinical Information: SRC:UR PERFORMED BY: iTiffin Iwmdjp2669 [facility] [id number] Result 1 CNSNSS (Normal) Comments: Coagulase negative Staphylococcus species, not Staphylococcussaprophyticus.600 Colonies/mLSusceptibility or resistance of staphylococci to oxacillin predictssusceptibility or resistance to (a) other be vo-zsygucxqa-svjvfnfrausahtewe such as cloxacillin and dicloxacillin, (b) combinationsof a penicillin and a beta-lactamase inhibitor, and(c) anti- staphylococcal cephalosporins. Routine testing of otherp enicillins, beta-lactam/beta-lactamase inhibitor combinations,cephems, and carbapenems is not advised by the CLSI Standards(S153-Z02, 2005). S = Susceptible; I = Intermediate; R = Resistant * P = Positive; N = Negative MICS are expressed in micrograms per mL Antibiotic RSLT#1 RSLT#2 RSLT#3 RSLT#4Ciprofloxacin RGentami kristian SLevofloxacin RNitrofurantoin SOxacillin SPenicillin RRifampin STrimethoprim/Sulfa SVancomycin S Urine Final report Culture,Comprehensi (Normal) ve 4-Hoz-005424:53 Metabolic Panel, Basic (00701) Comments: PATIENT NOT FASTINGClinical Information: ADD DRAW FEE 527111 ADD J 38567 PERFORMED BY: [employer] Lvztwo3809 [facility] [id number] BUN 39 mg/dL (Abnormal) Range: 5-26 BUN/Creatinine Ratio 33 (Abnormal) Range: 8-27 Calcium, Serum 9.8 mg/dL (Normal) Range: 8.5-10.6 Carbon Dioxide, Total 22 mmol/L (Normal) Range: 20-32 Chloride, Serum 103 mmol/L (Normal) Range: 97-108 Creatinine, Serum 1.20 mg/dL (Abnormal) Range: 0.57-1.00 Glom Filt Rate, Est 45 mL/min/1.73 Range: 60-128 (Abnormal) Glucose, Serum 101 mg/dL (Abnormal) Range: 65-99 If -Latvian 55 mL/min/1.73 Range: 60-128 (Abnormal) Comments: Note: Persistent reduction for 3 months or more in an eGFR<60 mL/min/1.73 m2 defines CKD. Patients with eGFR values>/=60 mL/min/1.73 m2 may also have CKD if evidence of persistentproteinuria is present. Additional information may be found atwww.kdoqi.org. Potassium, Serum 5.1 mmol/L (Normal) Range: 3.5-5.2 Sodium, Serum 139 mmol/L (Normal) Range: 135-145 :09 HgA1C , Office (89606) HgA1C , Office 6.1 % (Normal) Range: 4.6 - 7.1 :09 Blood Glucose , Office (43627) Blood Glucose , Office 163 (Normal) :37 SPINE,LUMBAR (ROUTINE) Radiology Report See Note (Normal) Comments: Exam Number: [id number] MRI LUMBAR SPINE CLINICAL STATEMENTLow back pain [...] onboth sides. Reported By: MODESTA COPE M.D. 06-Pqe-137038:00 BILAT SCRN DIGITAL & CAD Radiology Report See Note (Normal) Comments: Exam Number: [id number] MAMMOGRAM, BILATERAL SCREENING DIGITAL AND CAD HISTORYRoutine screening. Full field digital images were obtained in mediolateral oblique andcraniocaudal projections. CAD images w ere reviewed. The current study is [facility]. A small metal marker is placed [...] mammograms werealso examined with computer-aided detection software (Alo7.). Reported By: DONNA OJEDA M.D. 68-Nda-761903:59 DEXA BONE DENSITY STUDY (HP) Radiology Report See Note (Normal) Comments: Exam Number: [id number] BONE DENSITOMETRY HISTORYPost menopausal. TECHNIQUE Bone densitometry [...] Report See Note (Normal) Comments: Exam Number: [id number] FIVE VIEW LUMBAR SPINE AP, lateral, both [...] Randm Ur Comments: PATIENT NOT FASTINGPERFORMED BY: [email or web address] LabEurotechnology JapanEckkti9380 [facility] [id number] Creatinine, Urine 46.8 mg/dL (Normal) Microalb/Creat Ratio 712.8 {ug/mg_creat} (Abnormal) Range: 0.0-30.0 Microalbum.,U,Random 333.6 ug/mL (Abnormal) Range: 0.0-17.0 :13 Creatinine Clearance Comments: PATIENT NOT FASTINGClinical Information: HT-5'4'' WT-184 PERFORMED BY: [email or web address] Famjgf8405 [facility] [id number] Creatinine Clearance 40 mL/min (Abnormal) Range: 88-128 Comments: The above range is based on 1.73 square meter average body surfacearea. Creatinine, Serum 1.30 mg/dL (Normal) Range: 0.50-1.50 Creatinine, Ur 24hr 754.8 {mg/24_hr} Range: 800.0-1800.0 (Abnormal) Creatinine, Urine 44.4 mg/dL (Normal) Glom Filt Rate, Est 41 mL/min (Abnormal) Range: 60-128 If -Latvian 50 mL/min (Abnormal) Range: 60-128 Comments: Note: Persistent reduction for 3 months or more in an eGFR<60 mL/min/1.73 m2 defines CKD. Patients with eGFR values>/=60 mL/min/1.73 m2 may also have CKD if evidence of persistentproteinuria is present. .Additional information may be found at www.kdoqi.org. :13 Protein Total, Qn, 24-Hr Comments: PATIENT NOT FASTINGPERFORMED BY: LabCoKessler Institute for RehabilitationFoysda4833 [facility] [id number] Urine Protein,Total,Urine 49.0 mg/dL (Abnormal) Range: 0.0-15.0 Prt, 24hr calculated 833.0 {mg/24_hr} (Abnormal) Range: 30.0-150.0 18-Rqc-386818:00 CBCD,SMEAR DIFF CELLS COUNTED 100 (Normal) EOS [...] T PROT 6.6 g/dL (Normal) Range: 6.4-8.2 64-Pvu-288403:00 D BILI 0.06 mg/dL (Normal) Range: 0.00-0.30 96-Met-040208:00 LIPID CHOL 175 mg/dL (Normal) Comments: <200 [...] mg/dL VLDL 12 mg/dL (Normal) Range: 5-40 09-Xsi-170061:00 TSH 0.84 {uIU/mL} (Normal) Range: 0.34-4.82 Plan [...] skin Planned Observations CBC with auto diff (67697)Indication: Diabetes mellitus type II, controlled On: :22 Request HGB A1C (87363)Indication: Diabetes mellitus type II, controlled On: :21 Request METABOLIC PANEL, COMPREHENSIVE (81064)Indication: Chronic kidney disease, stage 3 On: :21 Request LIPID PANEL (30013)Indication: Other and unspecified hyperlipidemia On: 02-Wnw-607237:21 Request Vitamin D Hydroxy (88323)Indication: Vitamin D deficiency On: 37-And-019590:21 Request PARATHORMONE (70735)Indication: Chronic kidney disease, stage 3 On: 06-Mar-20188:59 Request Comments: fax to [phone] MICROALBUMIN: CREATININE RATIO (29652) AND (36740)Indication: Chronic kidney disease, stage 3 On: 06-Mar-20188:55 Request Comments: fax to [phone] RENAL FUNCTION PANEL (92275)Indication: Chronic kidney disease, stage 3 On: :54 Request Comments: fax to [phone] MAGNESIUM (55464)Indication: Chronic kidney disease, stage 3 On: :54 Request Comments: fax to [phone] Parathyroid Hormone-related Peptide (PTH-rP) (67808)Indication: Chronic kidney disease, stage 3 On: :54 Request Comments: fax to [phone] CBC W/AUTO DIFF WBC (89754)Indication: Chronic kidney disease, stage 3 On: 38-Iki-632533:25 Request Parathyroid Hormone-related Peptide (PTH-rP) (24370)Indication: Vitamin D deficiency On: 8-Hdk-144953:43 Request Comments: send results to Dr. Santana fax: [phone] VITAMIN D, 1, 25-DIHYDROXY (50168)Indication: Vitamin D deficiency On: 0-Xll-524396:42 Request Comments: send results to Dr. Santana fax: [phone] Clostridium difficile Toxin A+B, EIA (92912)Indication: Chronic diarrhea On: 6-Vnu-692812:36 Request Vitamin D Hydroxy (38162)Indication: Osteopenia On: 1-Kvw-878382:20 Request CBC W/AUTO DIFF WBC (75886)Indication: Hypertension, benign On: 8-Niw-611336:16 Request CALCIFEDIOL (21801)Indication: Chronic kidney disease, stage 3 On: 03-Aug-20169:04 Request Renal function Panel (88270)Indication: Chronic kidney disease, stage 3 On: :04 Request Magnesium (16024)Indication: Chronic kidney disease, stage 3 On: :04 Request MICROALBUMIN: CREATININE RATIO (85423) AND (93556)Indication: Chronic kidney disease, stage 3 On: :04 Request Parathyroid Hormone-related Peptide (PTH-rP) (01518)Indication: Chronic kidney disease, stage 3 On: :04 Request T4, FREE (THYROXINE) (52572)Indication: Cold feeling On: :31 Request TSH (01605)Indication: Cold feeling On: :31 Request PARATHORMONE (18441)Indication: Chronic kidney disease, stage 3 On: :18 Request Comments: copy to Dr. Santana [phone] CALCIFIDIOL (72688) VIT D 25Indication: Chronic kidney disease, stage 3 On: :16 Request Comments: copy to Dr. Santana [phone] MAGNESIUM (07601)Indication: Chronic kidney disease, stage 3 On: :15 Request Comments: copy to Dr. Santana [phone] PROTEIN/CREAT RATIO, URINE (99710)Indication: Chronic kidney disease, stage 3 On: :15 Request Comments: copy to Dr. Santana [phone] LIPID PANEL (67609)Indication: Mixed hyperlipidemia On: :21 Request CBC with auto diff (81118)Indication: Diabetes mellitus type II, controlled On: 85-Kyd-795133:20 Request METABOLIC PANEL, COMPREHENSIVE (30198)Indication: Diabetes mellitus type II, controlled On: 94-Lwu-807073:20 Request HGB A1C (28351)Indication: Diabetes mellitus type II, controlled On: :10 Request Vitamin D Hydroxy (19051)Indication: Osteopenia On: :08 Request TSH (THYROID STIMULATING HORMONE) (12735)Indication: Depression On: :06 Request LIPID PANEL (02046)Indication: Other and unspecified hyperlipidemia On: :06 Request CBC with auto diff (04403)Indication: Diabetes mellitus type II, controlled On: 67-Xyz-944908:06 Request METABOLIC PANEL, COMPREHENSIVE (63937)Indication: Diabetes mellitus type II, controlled On: 62-Lyt-747006:06 Request CREATININE CLEARANCE (59152)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 On: 0-Gvm-290843:38 Request Total Protein,24 Hour Urine (79087)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 On: 1-Ray-684402:38 Request CBC W/AUTO DIFF WBC (28637)Indication: Diabetes mellitus type II, controlled On: 37-Psr-661182:11 Request HgA1C , Office (68655)Indication: Diabetes mellitus type II, controlled On: 42-Ywl-896460:23 Request CULTURE, SPUTUM (45416)Indication: Cough On: 82-Bva-238834:47 Request HEPATIC FUNCTION PANEL (76385)Indication: Elevated LFTs On: 12-Nzl-87884:24 Request CREATININE CLEARANCE (76920)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 On: 74-Cej-82538:33 Request 24 hour urine for Protein (39271)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 On: :33 Request CBC WITH MANUAL DIFF (98130)Indication: Diabetes mellitus type II, controlled On: 86-Fae-693863:29 Request METABOLIC PANEL, COMPREHENSIVE (15978)Indication: Diabetes mellitus type II, controlled On: 20-Rwg-123794:29 Request LIPID PANEL (04693)Indication: Mixed hyperlipidemia On: :29 Request CREATININE CLEARANCE (47118)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 On: 0-Zqw-611227:45 Request 24 hour urine for Protein (39441)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 On: 8-Kxn-338029:45 Request CREATININE CLEARANCE (50652)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 On: 42-Kpo-425192:57 Request 24 hour urine for Protein (93275)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 On: 18-Jrl-518087:57 Request METABOLIC PANEL, COMPREHENSIVE (26254)Indication: Hypertension, benign On: :32 Request LIPID PANEL (99834)Indication: Mixed hyperlipidemia On: 99-Scq-35228:32 Request C-REACTIVE PROTEIN (27671)Indication: Fatigue On: 88-Sdb-61182:24 Request SED RATE ERYTHROCYTE (07821)Indication: Headache On: :24 Request VITAMIN B-12 (CYANOCOBALAMIN) (66635)Indication: Fatigue On: :24 Request LIPID PANEL (53243)Indication: Mixed hyperlipidemia On: :41 Request CBC WITH MANUAL DIFF (93100)Indication: Hypertension, benign On: :41 Request METABOLIC PANEL, COMPREHENSIVE (95216)Indication: Hypertension, benign On: :41 Request CREATININE CLEARANCE (63316)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 On: :34 Request 24 hour urine for Protein (88225)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 On: :34 Request LIPID PANEL (89367)Indication: Mixed hyperlipidemia On: 1-Vnv-936861:22 Request HEPATIC FUNCTION PANEL (06968)Indication: Mixed hyperlipidemia On: :22 Request Vitamin D Hydroxy (11883)Indication: Hypercalcemia On: :22 Request PHOSPHORUS (49558)Indication: Hypercalcemia On: 1-Kkv-749720:22 Request PARATHORMONE (50135)Indication: Hypercalcemia On: 8-Uxu-075311:22 Request METABOLIC PANEL, COMPREHENSIVE (70277)Indication: Hypercalcemia On: 0-Vxv-721700:22 Request CBC WITH MANUAL DIFF (49568)Indication: fsgs On: 4-Jtd-022539:58 Request LIPID PANEL (80907)Indication: Mixed hyperlipidemia On: :58 Request METABOLIC PANEL, COMPREHENSIVE (14084)Indication: Hypertension, benign On: :58 Request Blood Glucose , Office (70886)Indication: Diabetes mellitus type II, controlled On: 2-Lxs-378002:10 Request TSH (58295)Indication: Diabetes mellitus type II, controlled On: 22-Inq-061403:51 Request METABOLIC PANEL, COMPREHENSIVE (34417)Indication: Diabetes mellitus type II, controlled On: 81-Ocl-574718:51 Request CBC WITH MANUAL DIFF (38110)Indication: Diabetes mellitus type II, controlled On: 87-Yzk-659188:51 Request MICROALBUMIN: CREATININE RATIO (16377) AND (00085)Indication: Diabetes mellitus type II, controlled On: :51 Request HEPATIC FUNCTION PANEL (88974)Indication: Other and unspecified hyperlipidemia On: :51 Request LIPID PANEL (70372)Indication: Other and unspecified hyperlipidemia On: :51 Request HgA1C , Office (13102)Indication: Diabetes mellitus type II, controlled On: :37 Request Blood Glucose , Office (30323)Indication: Diabetes mellitus type II, controlled On: :37 Request Planned Procedures DRAIN/INJECT MAJOR JOINT OR BURSA On: 13-Mar-2018 Intent ()By: SHONDA Andrade Comments: 2 cc Marcaine lot# [id number] exp: 1 cc Kenalog lot# [id number] exp DRAIN/INJECT MAJOR JOINT OR BURSA On: 07-Feb-2018 Intent ()By: Keri Singh MD Comments: lot no [id number] exp date 2017-12-26 DRAIN/INJECT MAJOR JOINT OR BURSA On: 31-Jan-2018 Intent ()By: Keri Singh MD Comments: Lot#[id number]:0-72-52Ddxhz:intra articular Site given:left knee Given By: Dr. Singh ABN signed DRAIN/INJECT MAJOR JOINT OR BURSA On: 24-Jan-2018 Intent ()By: Keri Singh MD Comments: Lot#[id number]: 0-20-75Vucgv:intra artciular Site given:left knee Given By: Dr. Singh ABN signed Euflexxa Echo CompleteBy: Fast DO, Chaparrita A On: 16-Dec-2017 Intent Fast DO, Chaparrita A Flu Vaccine (Quadrivalent) [id number]: On: 16-Dec-2017 Intent Fast DO, Chaparrita A Fast DO, Chaparrita A Comments: Lot: #[id number]: 10/01/18Site: L dltd, IMDose prefilled syringegiven by: Jamie reviewed and ABN signed Kenalog Injection, 10 mgm On: 03-Oct-2017 Intent (J3301)By: Keri Singh MD Comments: lot: [id number]: 11/20site/route: L knee Cartoid DopplerBy: Ambrocio WOLFF Chaparrita A On: 12-Sep-2017 Intent Ambrocio WOLFF Chaparrita A Comments: november DIGITAL TOMOSYNTHESIS OF On: 12-Sep-2017 Intent BREAST (06347)By: Chaparrita Albrecht DO A Comments: due november 02 Ambrocio WOLFF Chaparrita A Kenalog Injection, 10 mgm On: 06-Jun-2017 Intent (J3301)By: Keri Singh MD Comments: bupivacacine 0.5% [id number] exp 09-20 kenalog 40 mg injected in. [id number] 07-21 MRI OF BRAIN WITH AND WITHOUT On: 06-Jun-2017 Intent CONTRAST (52584)By: Chaparrita Albrecht DO A Ambrocio WOLFF, Chaparrita A ELECTROCARDIOGRAM, COMPLETE (ECG) On: 06-Jun-2017 Intent (86749)By: Chaparrita Albrecht DO Comments: ekg showed normal sinus rhythym, normal axis, no acute st/t wave changes DO, Chaparrita A INFUSION, NORMAL SALINE SOLUTION , On: 10-May-2017 Intent 1000 CC (Special Coverage Comments: 2 liters total Instructions Apply. See MCM: 2048) (J7030)By: Chaparrita Albrecht DO A Fast DO, Chaparrita A INFUSION, NORMAL SALINE SOLUTION , On: 10-May-2017 Intent 1000 CC (Special Coverage Comments: lot:[id number]:IV left anticub dose:1000ml given by:eliazar Araya LPN Instructions Apply. See MCM: 2048) (J7030)By: Chaparrita Albrecht DO A Ambrocio DO, Chaparrita A Radiology - Chest- PA and LatBy: On: 05-May-2017 Intent Keri Singh MD Aerosol Treatment ([id number])By: On: 05-May-2017 Intent Keri Singh MD Radiology - ChestBy: Francisco MANN, On: 05-May-2017 Intent Keri Alonzo Comments: call wet read DRAIN/INJECT MAJOR JOINT OR BURSA On: 28-Feb-2017 Intent ([id number])By: Keri Singh MD Comments: 1 cc Kenelog #[id number] Marcaine #[id number] Kenalog Injection, 10 mgm On: 28-Feb-2017 Intent (J3301)By: Keri Singh MD ELECTROCARDIOGRAM, COMPLETE (ECG) On: 10-Jan-2017 Intent ([id number])By: Chaparrita Albrecht DO Comments: ekg showed normal sinus rhythym, normal axis, no acute st/t wave changes Chaparrita WOLFF A Flu Vaccine (Quadrivalent) [id number]: On: 27-Dec-2016 Intent SHONDA Andrade DRAIN/INJECT MAJOR JOINT OR BURSA On: 20-Aug-2016 Intent ()By: Keri Singh MD DRAIN/INJECT MAJOR JOINT OR BURSA On: 13-Aug-2016 Intent ()By: SHONDA Andrade Comments: lot: [id number]:intra articular dose:2ml given by:Dr. Francisco HUMPHREY signedER, ASSET AVAILABILITY LEADER injection #3 DOPPLER ULTRASOUND OF RIGHT CAROTID On: 10-Aug-2016 Intent ARTERY ([id number])By: Ambrocio WOLFF Chaparrita A Comments: end of october Ambrocio DO, Chaparrita A DEXA SCAN AXIAL SKELETON (37005)By: On: 10-Aug-2016 Intent Ambrocio WOLFF Chaparrita A Fast DO, Chaparrita A Comments: end of october SCREENING DIGITAL TOMOSYNTHESIS OF On: 10-Aug-2016 Intent BREAST ([id number])By: Case Albrecht DOa A Comments: end of october Fast , Chaparrita A DRAIN/INJECT MAJOR JOINT OR BURSA On: 06-Aug-2016 Intent ()By: Keri Singh MD DRAIN/INJECT INTERMED JOINT/BURSA On: 06-Aug-2016 Intent ()By: SHONDA Andrade Comments: lot:[id number]:left knee dose:2mlgiven by:Dr. Francisco HUMPHREY signedER, ASSET AVAILABILITY LEADER injection number 2 Venous Doppler - LeftBy: Ambrocio WOLFF, On: 03-Aug-2016 Intent Chaparrita A Ambrocio DO, Chaparrita A Comments: This is set up for August 05 at 11am- spoke with Rina in cv. DRAIN/INJECT INTERMED JOINT/BURSA On: 30-Jul-2016 Intent ()By: Keri Singh MD Comments: lot:[id number]:intra articular left knee dose: 2ml given by: Dr. Singh ABN signedER, ASSET AVAILABILITY LEADER injection #1 Radiology - Knee - LeftBy: Fast DO, On: 26-May-2016 Intent Chaparrita A Fast DO, Chaparrita A Flu Vaccine (Quadrivalent) [id number]: On: 27-Jan-2016 Intent Fast DO, Chaparrita A Fast DO, Chaparrita A Comments: Lot #:[id number] date:10/01/16mount given:0.5mlRoute: IMSite given: left deltoidGiven by: CARMELINA Hook ADMINISTRATION OF INFLUENZA VIRUS On: 27-Jan-2016 Intent VACCINE ([id number])By: Fast DO, Chaparrita A Fast DO, Chaparrita A DOPPLER ULTRASOUND OF RIGHT CAROTID On: 22-Oct-2015 Intent ARTERY ([id number])By: Fast DO, Chaparrita A Fast DO, Chaparrita A MAMMOGRAM, SCREENING, BOTH BREAST On: 22-Oct-2015 Intent ([id number])By: Fast DO, Chaparrita A Fast DO, Chaparrita A Ultrasound - RenalBy: Fast DO, On: 14-Jul-2015 Intent Chaparrita A Fast DO, Chaparrita A Radiology - Knee - Left - Weight On: 11-Mar-2015 Intent BearingBy: Fast DO, Chaparrita A Fast DO, Chaparrita A Radiology - Knee - Right - Weight On: 11-Mar-2015 Intent BearingBy: Fast DO, Chaparrita A Fast DO, Chaparrita A Flu Vaccine (Quadrivalent) [id number]: On: 11-Feb-2015 Intent Fast DO, Chaparrita A Fast DO, Chaparrita A EKG ([id number])By: Fast DO, Chaparrita A On: 05-Nov-2014 Intent Fast DO, Chaparrita A Comments: ekg showed normal sinus rhythym, normal axis, no acute st/t wave changes left axis DRAIN/INJECT SMALL JOINT OR BURSA On: 07-Oct-2014 Intent ()By: Keri Singh MD MAMMOGRAM, SCREENING, BOTH BREAST On: 02-Aug-2014 Intent ([id number])By: Fast DO, Chaparrita A Fast Comments: meera DO, Chaparrita A Cartoid DopplerBy: Fast DO, Chaparrita A On: 02-Aug-2014 Intent Fast DO, Chaparrita A DEXA SCAN AXIAL SKELETON ([id number])By: On: 09-Apr-2014 Intent Fast DO, Chaparrita A Fast DO, Chaparrita A Prevnar 13 (70201)By: Ambrocio DO, On: 30-Jan-2014 Intent Chaparrita A Fast DO, Chaparrita A Comments: Lot:[id number]:05/20Dose:0.5Route:imSite:l armGiven By:Jarred signed FLU VAC, SPLIT, >3 YEARS, INTRAMUSC On: 16-Jan-2014 Intent ([id number])By: Ambrocio DO, Chaparrita A Ambrocio Comments: Lot #:[id number] date:12/2015Amount given:0.5mlRoute: IMSite given: left deltoidGiven by: CARMELINA Hook DO, Chaparrita A ADMINISTRATION OF INFLUENZA VIRUS On: 16-Jan-2014 Intent VACCINE (G0008)By: Ambrocio DO, Chaparrita A Fast DO, Chaparrita A EKG ([id number])By: Fast DO, Chaparrita A On: 17-Oct-2013 Intent Fast DO, Chaparrita A Comments: ekg showed normal sinus rhythym, left axis, no acute st/t wave changes Radiology - Chest- PA and LatBy: On: 17-Sep-2013 Intent Fast DO, Chaparrita A Fast DO, Chaparrita A Aerosol Treatment ([id number])By: Ambrocio On: 17-Sep-2013 Intent DO, Chaparrita A Fast DO, Chaparrita A MRI - BrainBy: Fast DO, Chaparrita A On: 22-Jul-2013 Intent Fast DO, Chaparrita A Cartoid DopplerBy: Fast DO, Chaparrita A On: 20-Jul-2013 Intent Fast DO, Chaparrita A MAMMOGRAM, SCREENING, BOTH BREASTS On: 20-Jul-2013 Intent ([id number])By: Fast DO, Chaparrita A Fast DO, Chaparrita A Eprescribed prescriptions On: 20-Jul-2013 Intent (G8553)By: Fast DO, Chaparrita A Fast DO, Chaparrita A Eprescribed prescriptions On: 02-Feb-2013 Intent (G8553)By: Марина Concepcion FLU VAC, SPLIT, >3 YEARS, INTRAMUSC On: 03-Jan-2013 Intent ([id number])By: Марина Concepcion Comments: Lot #:[id number] date:mount given:0.5mlRoute: IMSite given: L dltdVIS and ABN signedGiven by: CARMELINA Hook ADMINISTRATION OF INFLUENZA VIRUS On: 03-Jan-2013 Intent VACCINE (G0008)By: Марина Concepcion CT - Abdomen & Pelvis (IV Contrast On: 17-Oct-2012 Intent Needed)By: Chaparrita Albrecht DO A Ambrocio Comments: patient will be calling to set up DO, Chaparrita A Eprescribed prescriptions On: 10-Oct-2012 Intent (G8553)By: Марина Concepcion Ear Irrigation (03783)By: [place], On: 13-Jun-2012 Intent Ivy Comments: Ear Irrigation performed on: right earAmount/color removed cerumen: light brown, small amount removedOUtcome:Pt toleratedUsed wax curettes Wax Currettes (14356)By: Rome, On: 13-Jun-2012 Intent Ivy PNEUM VAC ADLT/IMUMNOSPR, SBC/INTRM On: 13-Jun-2012 Intent ([id number])By: Chaparrita Albrecht DO Comments: Lot:[id number]:09/09/13Dose:0.5mLRoute:IMSite:L armGiven By:BHUMI signed DO, Chaparrita A EKG (05563)By: Case Albrecht DOa A On: 13-Jun-2012 Intent Ambrocio DO Chaparrita A Comments: ekg showed normal sinus rhythym, normal axis, no acute st/t wave changes MRI - BrainBy: Ambrocio WOLFF Chaparrita A On: 13-Jun-2012 Intent Ambrocio WOLFF Chaparrita A Comments: july ADMINISTRATION OF PNEUMOCOCCAL On: 13-Jun-2012 Intent VACCINE (G0009)By: Ambrocio WOLFF Chaparrita A Fast DO, Chaparrita A Eprescribed prescriptions On: 13-Jun-2012 Intent (G8553)By: Марина Concepcion MAMMOGRAM, SCREENING, BOTH BREASTS On: 28-Dec-2011 Intent ([id number])By: Case Albrecht DOa A Ambrocio DO, Chaparrita A DXA, BONE DENSITY, AXIAL SKELETON On: 28-Dec-2011 Intent ([id number])By: Ambrocio WOLFF Chaparrita A Fast DO, Chaparrita A MRI - BrainBy: Ambrocio WOLFF Chaparrita A On: 28-Dec-2011 Intent Ambrocio WOLFF Chaparrita A Comments: end of jan Cartoid DopplerBy: Fast DO, Chaparrita A On: 28-Dec-2011 Intent Fast DO, Chaparrita A Comments: jan Ultrasound - PelvisBy: Fast DO, On: 28-Dec-2011 Intent Chaparrita A Fast DO, Chaparrita A FLU VAC, SPLIT, >3 YEARS, INTRAMUSC On: 28-Dec-2011 Intent ([id number])By: Марина Concepcion Comments: Lot #:[id number] date:mount given:0.5mlRoute: IMSite given: left deltoidGiven by: CARMELINA Hook ADMINISTRATION OF INFLUENZA VIRUS On: 28-Dec-2011 Intent VACCINE (G0008)By: Марина Concepcion Aerosol Treatment ([id number])By: Ciesa On: 30-Nov-[address] - Abdomen & PelvisBy: Fast DO, On: 21-Sep-2011 Intent Chaparrita A Fast DO, Chaaprrita A Comments: with special cuts through the kidney- october EKG ([id number])By: Марина Concepcion On: 15-Jun-2011 Intent Comments: ekg [...] Comments: Call results to Dr. Albrecht @ [phone] as soon as resulted please. DO, Chaparrita A Eprescribed prescriptions On: 11-Jan-2011 Intent (G8553)By: Fast DO, Chaparrita A Fast DO, Chaparrita A MAMMOGRAM, SCREENING, BOTH BREASTS On: 11-Jan-2011 Intent ([id number])By: Ambrocio DO, Chaparrita A Fast DO, Chaparrita A CT - Sinuses CompleteBy: Fast DO, On: 11-Jan-2011 Intent Chaparrita A Fast DO, Chaparrita A Cartoid DopplerBy: Fast DO, Chaparrita A On: 11-Jan-2011 Intent Fast DO, Chaparrita A ADMINISTRATION OF INFLUENZA VIRUS On: 11-Jan-2011 Intent VACCINE (G0008)By: Марина Concepcion FLU VAC, SPLIT, >3 YEARS, INTRAMUSC On: 11-Jan-2011 Intent ([id number])By: Марина Concepcion Eprescribed prescriptions On: 12-Oct-2010 Intent (G8553)By: Ambrocio WOLFF, Chaparrita A Fast DO, Chaparrita A Renal DopplerBy: Fast DO, Chaparrita A On: 12-Oct-2010 Intent Fast DO, Chaparrita A Cartoid DopplerBy: Fast DO, Chaparrita A On: 12-Oct-2010 Intent Fast DO, Chaparrita A Comments: sept TDAP VACCINE >7 IM ([id number])By: On: 13-May-2010 Intent Helena Tineo LPN Comments: Lot #[id number]/25/13Site-left deltoidgiven by:[facility] EKG (53954)By: Марина Concepcion On: 13-May-2010 Intent Comments: ekg showed normal sinus rhythym, normal axis, no acute st/t wave changes Aerosol Treatment ([id number])By: Charlene On: 22-Dec-2009 Intent Johanna SANZ Cartoid DopplerBy: Fast DO, Chaparrita A On: 01-Dec-2009 Intent Fast DO, Chaparrita A MAMMOGRAM, SCREENING, BOTH BREASTS On: 01-Dec-2009 Intent ([id number])By: Fast DO, Chaparrita A Fast DO, Chaparrita A DXA, BONE DENSITY, AXIAL SKELETON On: 01-Dec-2009 Intent ([id number])By: Fast DO, Chaparrita A Fast DO, Chaparrita A Ultrasound - SpleenBy: Fast DO, On: 17-Jun-2009 Intent Chaparrita A Fast DO, Chaparrita A EKG (02889)By: Марина Concepcion On: 10-Mar-2009 Intent Comments: ekg showed normal sinus rhythym, normal axis, no acute st/t wave changes FLU VAC, SPLIT, >3 YEARS, INTRAMUSC On: 09-Jan-2009 Intent ([id number])By: Stacy Jorge Comments: Lot #[id number]/2009Site-left deltoidDose0.5mlgiven by Marycarmen Jorge LPN ADMINISTRATION OF INFLUENZA VIRUS On: 09-Jan-2009 Intent VACCINE (G0008)By: Stacy Jorge MAMMOGRAM, SCREENING, BOTH BREASTS On: 04-Dec-2008 Intent ([id number])By: Fast DO, Chaparrita A Fast DO, Chaparrita A MAMMOGRAM, SCREENING, BOTH BREASTS On: 03-Sep-2008 Intent ([id number])By: Fast DO, Chaparrita A Fast DO, Chaparrita A FLU VAC, SPLIT, >3 YEARS, INTRAMUSC On: 16-Jan-2008 Intent ([id number])By: Janet Scherer RN Comments: Lot #: [id number] date: 09/10Amount given: 0.5 mlRoute: IMSite given: Left deltoidGiven by: Olivia Bell LPN ADMINISTRATION OF INFLUENZA VIRUS On: 16-Jan-2008 Intent VACCINE (G0008)By: Janet Scherer RN EKG (04128)By: Fast DO, Chaparrita A On: 29-Aug-2007 Intent Fast DO, Chaparrita A Comments: done km ADMINISTRATION OF PNEUMOCOCCAL On: 29-Aug-2007 Intent VACCINE (G0009)By: Fast DO, Chaparrita A Fast DO, Chaparrita A PNEUM VAC ADLT/IMUMNOSPR, SBC/INTRM On: 29-Aug-2007 Intent (59429)By: Fast DO, Chaparrita A Fast Comments: 0.5cc given im lt arm [id number] 02-13-08 DO, Chaparrita A DXA, BONE DENSITY, AXIAL SKELETON On: 29-Aug-2007 Intent ([id number])By: Fast DO, Chaparrita A Fast DO, Chaparrita A MAMMOGRAM, SCREENING, BOTH BREASTS On: 29-Aug-2007 Intent (71605)By: Fast DO, Chaparrita A Fast DO, Chaparrita [...] Indication: Hypertension, benign Encounters Office Visit On: 22-Mar-2018 10:49 Encounter Reason: [...] new people and be involved in the sikhism 0 bps are good and sugar looking [...] medical issues: she has been working with [employer] and trying to work on that- she got rid of respiratory infection but was sick for weeks and was on pred so her sugar up and chol up a bit- trying to add protein shakes drink more water- she is starting back at [facility]- diarrhea resolved- we did talk [...] doing self help she is singing with sikhism- -rodriguez gars are all in low 100s-130- going to [facility] for a month next monthEncounter Diagnosis: Nonsmoker, [...] loss of er significant other - and swani pattern hasnt changed- no subclavian stenosis sx- [...] Eddie and bp is good she joined [employer] sugar up bit doi ng ice cream-the bone density reviewed little thinner she not exercising routienly until just recent at [employer] and sees kidney doc next week and [...] maribel cordelia in hospice - going to residential end of month- too much to care [...] Follow up, Laboratory Test Results - Date: (10/12/16). Encounter Diagnosis: Diabetes mellitus type II, controlled, [...] up, Laboratory Test Results - Date: (09/2015- [facility]). , [ADDITIONAL REASON] Itching - Symptoms [...] Meningioma (Renamed from ABNRM RESULT, FUNCTION STUDY, BRAIN/MEAT CUTTING BLOCK REPAIRER NEC (794.09)) [facility] Office Visit [...] Meningioma (Renamed from ABNRM RESULT, FUNCTION STUDY, BRAIN/MEAT CUTTING BLOCK REPAIRER NEC (794.09)), Diabetes, Type II, controlled (250.00), [...] to cost in [facility]- - takes ??lorazepam 1-2 times a week [...] Meningioma (Renamed from ABNRM RESULT, FUNCTION STUDY, BRAIN/MEAT CUTTING BLOCK REPAIRER NEC (794.09)), Colon Polyp [facility] [...] Meningioma (Renamed from ABNRM RESULT, FUNCTION STUDY, BRAIN/MEAT CUTTING BLOCK REPAIRER NEC (794.09)), OCCLUSION AND STENOSIS OF CAROTID [...] Meningioma (Renamed from ABNRM RESULT, FUNCTION STUDY, BRAIN/MEAT CUTTING BLOCK REPAIRER NEC (794.09)), Chronic glomerulonephritis with lesion of [...] Meningioma (Renamed from ABNRM RESULT, FUNCTION STUDY, BRAIN/MEAT CUTTING BLOCK REPAIRER NEC (794.09)), Other and unspecified hyperlipidemia (272.4), [...] Meningioma (Renamed from ABNRM RESULT, FUNCTION STUDY, BRAIN/MEAT CUTTING BLOCK REPAIRER NEC (794.09)) [facility] Office Visit [...] Meningioma (Renamed from ABNRM RESULT, FUNCTION STUDY, BRAIN/MEAT CUTTING BLOCK REPAIRER NEC (794.09)), Gerd (530.81), Hyperlipidemia, Unspecified (272.4), [...] Meningioma (Renamed from ABNRM RESULT, FUNCTION STUDY, BRAIN/MEAT CUTTING BLOCK REPAIRER NEC (794.09)), Hypertension,benign(401.1), OCCLUSION AND STENOSIS OF [...] Meningioma (Renamed from ABNRM RESULT, FUNCTION STUDY, BRAIN/MEAT CUTTING BLOCK REPAIRER NEC (794.09)), Diabetes, Type II, controlled (250.00), [...] Meningioma (Renamed from ABNRM RESULT, FUNCTION STUDY, BRAIN/MEAT CUTTING BLOCK REPAIRER NEC (794.09)), Hypertension,benign(401.1), Osteopenia (733.90), Depression (311.), [...] weight down 23 pounds- and trying joined [employer]- she feels well - she increased celexa [...] Meningioma (Renamed from ABNRM RESULT, FUNCTION STUDY, BRAIN/MEAT CUTTING BLOCK REPAIRER NEC (794.09)), Chronic glomerulonephritis with lesion of [...] Meningioma (Renamed from ABNRM RESULT, FUNCTION STUDY, BRAIN/MEAT CUTTING BLOCK REPAIRER NEC (794.09)) End: 26-Jan-2011 16:53 [facility] Office Visit On: 19-Jan-2011 14:30 Encounter Diagnosis: brain tumor End: 21-Sep-2011 8:09 [facility] Phone Encounter On: 19-Jan-2011 13:41 Encounter Diagnosis: ABNRM RESULT, FUNCTION STUDY, BRAIN/MEAT CUTTING BLOCK REPAIRER NEC (794.09) End: 19-Jan-2011 13:44 [facility] [...] (V04.81), Degenerative Disc Disease - Lumbar (722.52[place] [facility] [facility] [place] Visit On: 06-Dec-2007 [...] Disease - Lumbar (722.52), Osteopenia (733.90), Hypertension,benign(401.1), [facility] [facility] Historical Summary On: 30-Aug-2007 [...] Internal Medicine Payers MedicareAARP/[facility]; a guarantor
--- OUTSIDE RECORDS SUMMARY | 2018-06-25 22:19 | XMS RPT_ITS | Continuity of Care Document ---
:1940 Author Organization [facility] Address [address] [place] [address] Phone Care Team Providers Name Role Phone [...] Knee pain, unspecified laterality (719.46) Comments: Valorie:lot: [id number]: 09/20site/route: L knee Status: Active Leg pain, [...] 28 {Capsule} Refills: 0 Ordered:12-Oct-2010 Fast DO, Hcaparrita AFast DO, Chaparrita A Start : 12-Oct-2010 End : 26-Oct-2010 Inactive DULoxetine HCl 30 MG Oral Capsule Delayed Release Particles 1 (one) Capsule DR Part qday for 90 days Quantity: 90 {Capsule} Refills: 3 Ordered:04-May-2016 SHONDA Andrade Start : 27-Jan-2016 End : 04-May-2016 Inactive Dymista 137-50 MCG/ACT Nasal Suspension 1 (one) Suspension 1 spray daily for 0 days Quantity: 1 {[place]} Refills: 0 Ordered:04-May-2016 SHONDA Andrade Start : [...] and dispense 8 ounes TOTAL mixed solutionCal [id number] if questions SPECTAZOLE, 1% (External Cream) 1 [...] : 11-Feb-2015 Discontinued Comments:th[age], called 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 2016 right Cholecystectomy Completed lumbar rnehyz==4701 Completed Tonsillectomy Completed Date Value Details 19-Dec-2017 Echocardiogram Complete Result: Comments: See Note; NOTES: [facility] Cardiovascular Services [address] [place] [address] Echo Complete 12/19/17 0800 MR#: [id number] Acct: [id number] Name: CLARENCE ALBERT ep #: [id number] : 1940 77 From: Chuckie Cormier MD Attending Dr: Chaparrita Albrecht DO Status: REG CLI Ordering Dr: Chaparrita Albrecht DO Date: 12/19/17 Location: [facility] Sex: F C Admitted: Reason For Study: [...] Dictated: 12/19/17 0800 Date Transcribed: 12/19/17 1022 Gis Specialist: Signed 07-Dec-2017 Carotid Duplex Ultrasound Result: Comments: See Note; NOTES: [facility] [address] [place] [address] Carotid Duplex Ultrasound 12/06/17 0901 MR#: [id number] Acct: [id number] Name: CLARENCE WHITTINGTON Rep #: [id number] : 1940 77 From: Anurag Loya MD [...] the left vertebral artery. Procedure Carotid Duplex 94439. Exam performed in department. Interpretation Summary Mild (<50%) stenosis right extracranial internal carotid. Mild (<50%) stenosis left extracranial internal carotid. Flow within the vertebral arteries is antegrade bilaterally. __ __ Ordering Physician: Chaparrita Albrecht Performed By: Margot Benton RVT and Student 12/07/17 0809 Date Anurag Loya MD CC: Chaparrita Albrecht DO Date Dictated: 12/06/17900 Date Transcribed: 12/07/17808 Gis Specialist: Signed 06-Dec-2017 SCREENING MAMM (CAD), BILAT Result: Comments: See Note; NOTES: [facility] Imaging Services [address] [place] [address] SCREENING MAMM (CAD), BILAT MR#: [id number] Acct: [id number] Name: CLARENCE ALBERT Rep #: [id number] : 1940 F 77 From: Misael Hebert MD PCP: Chaparrita Albrecht DO Status: REG CLI Study: SCREENING MAMM (CAD), BILAT Date of Exam: 12/06/17 Exam# [id number] Ordering Dr: Chaparrita Albrecht DO MAMM OGRAPHY [...] delay biopsy of a clinically suspicious abnormality. [id number] Electronically Signed: Misael Hebert MD at 15:31 EDT Tel [phone], Se rvice support , CC: Chaparrita Albrecht DO Gis Specialist: Signed 10-Jun-2017 Brain W/WO Contrast Result: Comments: See Note; NOTES: [facility] Imaging Services [address] [place] [address] Brain W/WO Contrast MR#: [id number] Acct: [id number] Name: CLARENCE ALBERT Rep #: [id number] : 1940 F 77 From: Laya Montilla MD PCP: Chaparrita Albrecht DO Status: REG CLI Study: Brain W/WO Contrast Date of Exam: 06/10/17 Exam# [id number] Ordering Dr: Chaparrita Albrecht DO STUDY: MRI [...] Service support , CC: Chaparrita Albrecht DO Gis Specialist: Signed 05-May-2017 Chest PA and Lateral Result: Comments: See Note; NOTES: [facility] Imaging Services [address] [place] [address] Chest PA and Lateral MR#: [id number] Acct: [id number] Name: CLARENCE ALBERT Rep #: [id number] : 1940 F 77 From: Edwar Patino MD PCP: Chaparrita Albrecht DO Status: REG CLI Study: Chest PA and Lateral Date of Exam: 05/05/17 Exam# [id number] Ordering Dr: Keri Singh MD STUDY: X-RAY [...] CC: Keri Singh MD; Chaparrita Albrecht DO Gis Specialist: Signed 02-Nov-2016 Dexa Bone Density Study (HP) Result: Comments: See Note; NOTES: [facility] Imaging Services [address] [place] [address] Verdana 4d Dexa Bone Density Study (HP) MR#: [id number] Acct: [id number] Name: LYNNE ALBERT Rep #: [id number] : 1940 F 76 From: Misael Hebert MD PCP: Chaparrita Albrecht DO Status: REG CLI Study: Dexa Bone Density Study (HP) Date of Exam: 11/02/16 Exam# [id number] Ordering Dr: Laura DO STUDY: DUAL ENERGY [...] Misael Hebert MD at 11:02 EDT Tel [phone], Service support , CC: Chaparrita Albrecht DO Gis Specialist: Signed 02-Nov-2016 SCREENING MAMM (CAD), BILAT Result: Comments: See Note; NOTES: [facility] Imaging Services [address] [place] [address] Verdana 4d SCREENING MAMM (CAD), BILAT MR#: [id number] Acct: [id number] Name: CLARENCE ALBERT Rep #: [id number] : 1940 F 76 From: Misael Hebert MD PCP: Chaparrita Albrecht DO Status: REG CLI Study: SCREENING MAMM (CAD), BILAT Date of Exam: 11/02/16 Exam# [id number] Ordering Dr: Case Albrecht DO MAMMOGRAPHY - [...] delay biopsy of a clinically suspicious abnormality. [id number] Electronically Signed: Misael Hebert MD at 12:44 EDT Tel [phone], Service support , CC: Chaparrita Albrecht DO Gis Specialist: Signed 05-Aug-2016 Venous Duplex Lower Extremity Result: Comments: See Note; NOTES: [facility] Cardi[facility] Services [address] [place] [address] Venous Duplex US, Unilateral 08/05/16 1053 MR#: [id number] Acct: [id number] Name: CLARENCE WEI Rep #: [id number] : 1940 76 From: Elvin Natarajan MD Attending Dr: Chaprarita Albrecht DO Status: REG CLI Ordering Dr: [...] Dictated: 08/05/16 1053 Date Transcribed: 08/05/16 1127 Gis Specialist: Signed 27-May-2016 Knee 4 or More Views Result: Comments: See Note; NOTES: [facility] Imaging Services [address] [place] [address] Verdana 4d Knee 4 or More Views MR#: [id number] Acct: [id number] Name: CLARENCE ALBERT Rep #: [id number] : 1940 F 76 From: Misael Hebert MD PCP: Chaparrita Albrecht DO Status: REG CLI Study: Knee 4 or More Views Date of Exam: 05/27/16 Exam# [id number] Ordering Dr: Kylah Linda DO UDY: X-RAY [...] MD at 10:41 EST , Service support [phone], CC: Chaparrita Albrecht DO; Kylah Linda DO Gis Specialist: Signed 13-May-2016 Sinus/Facial Bone Result: Comments: See Note; NOTES: [facility] Imaging Services [address] [place] [address] Verdana 4d Sinus/Facial Bone MR#: [id number] Acct: [id number] Name: CLARENCE ALBERT Rep #: [id number] : 1940 F 76 From: Godwin Winter MD PCP: Chaparrita Albrecht DO Status: REG CLI Study: Sinus/Facial Bone Date of Exam: 05/13/16 Exam# [id number] Ordering Dr: Alejandro Silverman MD STUDY: CT [...] MD at 7:35 EST , Service support [phone], CC: Chaparrita Albrecht DO; Alejandro Silverman MD Gis Specialist: Signed 21-Apr-2016 Emergency Department Summary Result: Comments: See Note; NOTES: [facility] Medical Records Department [address] [place] [address] Emergency Department Summary MR#: [id number] Acct: [id number] Name: CLARENCE ALBERT Rep #: [id number] : 1940 76 From: Carissa Murphy MD [...] epistaxis. CARISSA MURPHY MD T: NTS JOB: [id number] 04/21/16 0806 <Electronically signed by Carissa Murphy MD> Date Carissa donovan MD Cosigner Signature (If Indicated): Date CC: Chaparrita Albrecht DO Date Dictated: 04/20/161711 Date Transcribed: 04/20/161711 Gis Specialist: Signed 20-Apr-2016 Discharge Instruction Result: Comments: See Note; NOTES: [facility] Medical Records Department [address] [place] [address] Discharge Instruction 04/20/16 1303 MR#: [id number] Acct: [id number] Name: CLARENCE ALBERT Rep #: [id number] : 1940 76 From: Carissa Murphy MD [...] your Primary Care Provider. Call [facility] ([phone]) or report to the closest Emergency Room. Call 911 if necessary. 04/20/16 5915 <Electronically signed by Carissa Murphy MD> Date Carissa Murphy MD Cosigner Signature (If I ndicated): Date CC: Chaparrita Albrecht DO 02-Nov-2015 Carotid Duplex Ultrasound Result: Comments: See Note; NOTES: [facility] Cardiovascular Services [address] [place] [address] Carotid Duplex Ultrasound 10/30/15 1100 MR#: [id number] Acct: [id number] Name: CLARENCE ALBERT Rep #: [id number] : 1940 75 From: Elvin Natarajan MD Attending Dr: Chaparrita Albrecht DO Status: REG CLI Ordering Dr: Chaparrita Albrecht DO Date: 10/30/15 Location: [facility] Sex: F C Adm itted: Reason For [...] the left vertebral artery. Procedure Carotid Duplex 74723. The exam was diagnostic. Exam performed in [...] Dictated: 10/30/15 1100 Date Transcribed: 11/02/15 1143 Gis Specialist: Signed 30-Oct-2015 Bilat Scrn Digital AND CAD Result: Comments: See Note; NOTES: [facility] Imaging Services [address] [place] [address] Verdana 4d Bilat Scrn Digital AND CAD MR#: [id number] Acct: [id number] Name: CLARENCE ALBERT Rep #: [id number] : 1940 F 75 From: Andres Brady MD PCP: Chaparrita Albrecht DO Status: REG CLI Study: Bilat Scrn Digital AND CAD Date of Exam: 10/30/15 Exam# [id number] Ordering Dr: Chaparrita Albrecht DO MAMMOGRAPHY - [...] biop sy of a clinically suspicious abnormality. CF1651 Electronically Signed: Andres Brady MD at 17:48 EDT Tel , Service support [phone], CC: Chaparrita Albrecht DO Gis Specialist: Signed 30-Oct-2015 Bilat Scrn Digital AND CAD Result: Comments: See Note; NOTES: [facility] Imaging Services [address] [place] [address] Verdana 4d Bilat Scrn Digital AND CAD MR#: [id number] Acct: [id number] Name: CLARENCE ALBERT Rep #: [id number] : 1940 F 75 From: Andres Brady MD PCP: Chaparrita Albrecht DO Status: REG CLI Study: Bilat Scrn Digital AND CAD Date of Exam: 10/30/15 Exam# [id number] Ordering Dr: Chaparrita Albrecht DO MAMMOGRAPHY - [...] abnormalities are identified. CC: Chaparrita Albrecht DO Gis Specialist: Signed 22-Oct-2015 ELECTROCARDIOGRAM, COMPLETE (ECG) (92974) Comments: ekg showed normal sinus rhythym, normal axis, no acute st/t wave changes no change Result: [MEASUREMENTS ANALYSIS] Date of Test: 10/22/2015 14:41:29; Heart Rate: 71; ND Interval: 140; QRS: 94; QT Interval: 384; Corrected QT Interval (QTc): 403; P Wave [place]: 58; QRS Wave [place]: -3; T Wave [place]: 56; Blood Pressure: 128/76 [ECG DIAGNOSTIC STATEMENTS] Date of Test: 10/22/2015 14:41:29; Summary: Sinus Rhythm Low voltage -possible pulmonary disease. ABNORMAL 22-Jul-2015 Kidney and Bladder Result: Comments: See Note; NOTES: [facility] Imaging Services [address] [place] [address] Verdana 4d Kidney and Bladder MR#: [id number] Acct: [id number] Name: Yaniv ALBERT Rep #: [id number] : 1940 F 75 From: Nir Sanchez MD PCP: Chaparrita Albrecht DO Status: REG CLI Study: Kidney and Bladder Date of Exam: 07/22/15 Exam# [id number] Ordering Dr: Chaparrita Albrecht DO STUDY: RENAL [...] Service support , CC: Chaparrita Albrecht DO Gis Specialist: Signed 11-Mar-2015 Knee 4 or More Views Result: Comments: See Note; NOTES: [facility] Imaging Services [address] [place] [address] Verdana 4d Knee 4 or More Views MR#: [id number] Acct: [id number] Name: CLARENCE ALBERT Rep #: [id number] : 1940 F 74 From: Trent Cameron DO PCP: Chaparrita Albrecht DO Status: REG CLI Study: Knee 4 or More Views Date of Exam: 03/11/15 Exam# [id number] Ordering Dr: Case Albrecht DO STUDY: X-RAY [...] at 7:45 EST Tel , Service support [phone], RAD/Knee 4 or More Views IMPRESSION: Degener ative changes within the knee. No acute fracture. Small suprapatellar effusion. Electronically Signed: Trent Cameron DO at 7:45 EST Tel , Service support [phone], CC: Chaparrita Albrecht DO Gis Specialist: Signed 11-Mar-2015 Knee 4 or More Views Result: Comments: See Note; NOTES: [facility] Imaging Services [address] [place] [address] Verdana 4d Knee 4 or More Views MR#: [id number] Acct: [id number] Name: CLARENCE ALBERT Rep #: [id number] : 1940 F 74 From: Trent Cameron DO PCP: Chaparrita Albrecht DO Status: REG CLI Study: Knee 4 or More Views Date of Exam: 03/11/15 Exam# [id number] Ordering Dr: Case Albrecht DO STUDY: X-RAY [...] at 7:46 EST Tel , Service support [phone], RAD/Knee 4 or More Views IMPRESSION: Mild degenerative changes. No acute bony abnormality. Electronically Signed: Trent Cameron DO at 7:46 EST Tel , Service support [phone], CC: Chaparrita Albrecht DO Gis Specialist: Signed 18-Oct-2014 Carotid Duplex Ultrasound Result: Comments: See Note; NOTES: [facility] Cardi[facility] Services [address] [place] [address] Carotid Duplex Ultrasound 10/18/14 1331 MR#: [id number] Acct: [id number] Na me: CLARENCE ALBERT Rep #: [id number] : 1940 74 From: Elvin Natarajan MD [...] the left vertebral artery. Procedure Carotid Duplex 77222. The exam was diagnostic. Exam performed in [...] Dictated: 10/18/14 1331 Date Transcribed: 10/18/14 1616 Gis Specialist: Signed 18-Oct-2014 Bilat Scrn Digital AND CAD Result: Comments: See Note; NOTES: [facility] Imaging Services [address] [place] [address] Breast Imaging Report MR#: [id number] Acct: [id number] Name: CLARENCE ALBERT Rep #: [id number] : 1940 F 74 From: Misael Hebert MD PCP: Chaparrita Albrecht DO Status: REG CLI Study: Saad Jaffe Digital AND CAD Date of Exam: 10/18/14 Exam# [id number] Ordering Dr: Chaparrita Albrecht DO MAMMOGRAPHY - [...] Misael redmond MD at 13:44 EDT Tel [phone], Service support [phone], CC: Chaparrita Albrecht DO Gis Specialist: Signed 09-Jul-2014 Dexa Bone Density Study (HP) Result: Comments: See Note; NOTES: [facility] Imaging Services [address] [place] [address] Bone Density Report MR#: [id number] Acct: [id number] Name: CLARENCE ALBERT Rep #: [id number] : 1940 F 74 From: Misael Hebert MD PCP: Chaparrita Albrecht DO Status: [facility] CLI Study: Dexa Bone Density Study (HP) Date of Exam: 07/09/14 Exam# [id number] Ordering Dr: Chaparrita Albrecht DO STUDY: DUAL [...] Angel Hebert MD at 14:55 EDT Tel [phone], Service support [phone], CC: Chaparrita Albrecht DO Gis Specialist: Signed 17-Sep-2013 Chest PA and Lateral Result: Comments: See Note; NOTES: [facility] Imaging Services [address] [facility] [place] [address] Radiology Report MR#: [id number] Acct: [id number] Name: CLARENCE ALBERT Rep #: [id number] : 1940 F 73 From: David Bennett MD PCP: Chaparrita Albrecht DO Status: REG CLI Study: Chest PA and Lateral Date of Exam: 09/17/13 Exam# [id number] Ordering Dr: Chaparrita Albrecht DO STUDY: X-RAY [...] MD at 20:44 EDT , Service support [phone], RAD/Chest PA and Lateral IMPRESSION: No focal infiltrate or edema. Electronic ally Signed: David Bennett MD at 20:44 EDT , Service support [phone], CC: Chaparrita Albrecht DO Gis Specialist: Signed 17-Sep-2013 Spirometry (27924) Result: 29-Aug-2013 Carotid Duplex Ultrasound Result: Comments: See Note; NOTES: [facility] Cardi[facility] Services [address] [place] [address] Carotid Duplex Ultrasound 08/24/13 0939 MR#: [id number] Acct: [id number] Chalo e: CLARECNE ALBERT Rep #: [id number] : 1940 73 From: Anurag Loya MD [...] in the left bulb. Procedure Carotid Duplex 76377. Exam perfor med in department. Interpretation Summary Mild (<50%) stenosis right extracranial internal carotid. Mild (<50%) stenosis left extracranial internal carotid. Flow within the vertebra l arteries is antegrade bilaterally. Ordering Physician: Chaparrita Albrecht Performed By: Kendal Benton RVT : Chaparrita Albrecht DO Date Dictated: 08/24/13 0939 Date Transcribed: 08/29/13 1118 Gis Specialist: Signed Immunization Name Dates Details Influenza (3 years and up) on: 16-Jan-2008 Comments: Lot #: [id number] date: 09/10Amount given: 0.5 mlRoute: IMSite given: Left deltoidGiven by: Olivia Bell LPN Influenza (3 years and up) on: 09-Jan-2009 Comments: Lot #[id number]-left deltoidDose0.5mlgiven by Marycarmen Jorge LPN Pneumococcal (2 years and up) on: 29-Aug-2007 Comments: 0.5cc given im lt arm [id number] exp 02-13-08 Family History Unknown Family Member [...] kg/m2 Body Surface Area Calculated 1.76 m2 34-Cne-656721:39 Temperature 97.9 f Comments: Method: Temporal Pulse [...] Description Value Details :24 HgA1C , Office (94681) HgA1C , Office 6.5 % (Normal) Range: 4.6 - 7.1 :14 LIPID PANEL (45769) Comments: PATIENT WAS FASTINGPERFORMED BY: [facility]Co[facility] Lung CenterIfmrjf5809 [facility] [id number] LDL/HDL Ratio 1.1 {ratio} (Normal) Range: 0.0-3.2 [...] (Normal) Range: 100-199 :14 Vitamin D Hydroxy (84039) Comments: PATIENT WAS FASTINGPERFORMED BY: [facility]6370 [facility] [id number] Vitamin D, 25-Hydroxy 37.8 ng/mL (Normal) Range: 30.0-100.0 Comments: Vitamin D deficiency has been defined by the [place] of[place]icine and an Endocrine Society practice guideline as alevel of serum 25-OH vitamin D less than 20 ng/mL (1,2).The Endocrine Society went on to further define vitamin Dinsufficiency as a level between 21 and 29 ng/mL (2).1. IOM ([place] of Medicine). 2010. Dietary reference intakes for calcium and D. [place]: The National Academies Press.2. Mira MF, Rosette [place], Tommy SWAIN, et al. Evaluation, treatment, and prevention of vitamin D deficiency: an Endocrine Society clinical practice guideline. JCEM. 2010; 96(7):1911-30. :14 CBC with auto diff (53172) Comments: PATIENT WAS FASTINGPERFORMED BY: [facility]Co[facility] Lung CenterSbbpwn3303 [facility] [id number] Immature Grans (Abs) 0.0 {x10E3/uL} (Normal) Range: [...] PANEL, COMPREHENSIVE Comments: PATIENT WAS FASTINGPERFORMED BY: [facility]Co[facility] Lung CenterZyhffi6838 [facility] [id number] (87881) ALT (SGPT) 10 [iU]/L (Normal) Range: 0-32 [...] CREATININE RATIO Comments: PATIENT WAS FASTINGPERFORMED BY: SeatIDDeborah Heart and Lung CenterFvtpwf3519 [facility] [id number] (56651) AND (43744) Alb/Creat Ratio 4213.3 {mg/g_creat} (Abnormal) Range: 0.0-30.0 Albumin, Urine 3206.3 ug/mL (Normal) Comments: Results confirmed ondilution. Creatinine, Urine 76.1 mg/dL (Normal) :40 CBC & PLATELETS (AUTO) (17768) Comments: please fax to Dr. Austin- [phone]; PATIENT WAS FASTINGPERFORMED BY: SeatIDDeborah Heart and Lung CenterPodipw2149 [facility] [id number] Platelets 148 {x10E3/uL} (Abnormal) Range: 150-379 RDW [...] PANEL Comments: please fax to Dr. Austin- [phone]; PATIENT WAS FASTINGPERFORMED BY: SeatIDDeborah Heart and Lung CenterIbgufw3041 [facility] [id number] Information: [id number] FX DR. SANTANA (37914) Albumin 3.1 g/dL (Abnormal) Range: 3.5-4.8 Phosphorus [...] 8-27 Glucose 133 mg/dL (Abnormal) Range: 65-99 47-Huv-28422:40 MAGNESIUM (47879) Comments: please fax to Dr. Austin- [phone]; PATIENT WAS FASTINGPERFORMED BY: [facility] Mseape2310 [facility] [id number] Magnesium 1.9 mg/dL (Normal) Range: 1.6-2.3 23-Owb-00793:40 CALCIFEDIOL (43173) Comments: please fax to Dr. Austin- [phone]; PATIENT WAS FASTINGPERFORMED BY: [facility] Ujxqpq3678 [facility] [id number] Vitamin D, 25-Hydroxy 29.4 ng/mL (Abnormal) Range: 30.0-100.0 Comments: Vitamin D deficiency has been defined by the [place] of[place]icine and an Endocrine Society practice guideline as alevel of serum 25-OH vitamin D less than 20 ng/mL (1,2).The Endocrine Society went on to further define vitamin Dinsufficiency as a level between 21 and 29 ng/mL (2).1. IOM ([place] of Medicine). 2010. Dietary reference intakes for calcium and D. [place]: The National Academies Press.2. Mira MF, [place], Tommy SWAIN, et al. Evaluation, treatment, and prevention of vitamin D deficiency: an Endocrine Society clinical practice guideline. JCEM. 2010; 96(7):1911-30. :40 PARATHORMONE (82024) Comments: please fax to Dr. Austin- [phone]; PATIENT WAS FASTINGPERFORMED BY: EVE [facility] Csmjhq3534 [facility] CenterMalikclaribel [place] [id number] PTH, Intact 22 pg/mL (Normal) Range: 15-65 :30 COLON BIOPSY (CHOOSE See Note (Normal) Comments: [facility] [address] [place], [address] SITE) Comments: Patient: CLARENCE ALBERT : 1940 (77/F) Acct Num: [id number] Phys: Marcus Caldera Unit Num: [id number] Loc: LABSPEC Specimen: [id number] Received: 09/16/171528 Spec Type: C OLON BX [...] one cassette. / MARCY:dustin 09/19/17 TC:1 CPT: 70035 x2 HEADER OPERATION: Colonoscopy PRE-OP DIAGNOSIS: History [...] PANEL, COMPREHENSIVE Comments: PATIENT NOT FASTINGPERFORMED BY: [facility]CoDeb[facility] Lung CenterStvoiz1237 [facility] [id number] (33623) ALT (SGPT) 14 [iU]/L (Normal) Range: 0-32 [...] (Abnormal) Range: 65-99 :07 HgA1C , Office (85841) HgA1C , Office 7.2 % (Abnormal) Range: 4.6 - 7.1 :37 Clostridium difficile Toxin Comments: PATIENT NOT FASTINGPERFORMED BY: [facility]Co[facility] Lung CenterWkdbnl2928 [facility] [id number] A+B, EIA (63523) C difficile Toxins A+B, EIA Negative (Normal) :37 LEUKOCYTE COUNT, FECAL (74897) Comments: PATIENT NOT FASTINGPERFORMED BY: [facility] [facility] Pcmewu4601 [facility] [id number] Result 1 NWBC (Normal) Comments: No white blood cells seen. White Blood Cells (WBC), Final report (Normal) Stool :37 OVA & PARASITE DIR SMEAR Comments: PATIENT NOT FASTINGPERFORMED BY: [facility] [facility]Haw[facility] Gzketf9810 [facility] [id number] (33973) Result 1 NOCP (Normal) Comments: No ova, cysts, or parasites seen. Ova + Parasite Exam Final report (Normal) Comments: These results were obtained using wet preparation(s) and trichromestained smear. This test does not include testing for Cryptosporidiumparvum, Cyclospora, or Microsporidia. :37 SETH CULTURE-STOOL (24639) Comments: PATIENT NOT FASTINGPERFORMED BY: [facility] [facility]Haw[facility] Pmcgus8954 [facility] [id number] Information: SRC:ST SRC:ST E coli Shiga Toxin EIA Negative (Normal) Result 1 NCI (Normal) Comments: No Campylobacter species isolated. Campylobacter Culture Final report (Normal) Result 1 NSS (Normal) Comments: No Salmonella or Shigella recovered. Salmonella/Shigella Screen Final report (Normal) :06 Renal function Panel Comments: fax copy to Dr. Santana [phone]; A courtesy copy of this report has been sent [phone].PATIENT NOT FASTINGPERFORMED BY: [employer] [facility]Haw[facility] Wdwxav8915 [facility] [id number] Information: NURSE DRAW (73342) Albumin 3.5 g/dL (Normal) Range: 3.5-4.8 Phosphorus [...] copy of this report has been sent [phone].PATIENT NOT FASTINGPERFORMED BY: [employer] [place] [id number] :02 Range: 15-65 Vitamin D, 25-Hydroxy 34.7 ng/mL (Normal) Comments: A courtesy copy of this report has been sent [phone].PATIENT NOT FASTINGPERFORMED BY: [employer]70 [employer] [facility]Formerly [facility] [id number] :02 Range: 30.0-100.0 Comments: Vitamin D deficiency has been defined by the [place] ofUniversity [facility]als Conne[facility] Medical Centercine and an Endocrine Society practice guideline as alevel of serum 25-OH vitamin D less than 20 ng/mL (1,2).The Endocrine Society went on to further define vitamin Dinsufficiency as a level between 21 and 29 ng/mL (2).1. IOM ([place] of Medicine). 2010. Dietary reference intakes for calcium and D. [place]: The National Academies Press.2. Mira MF, Rosette LOPEZ, Tommy SWAIN, et al. Evaluation, treatment, and prevention of vitamin D deficiency: an Endocrine Society clinical practice guideline. JCEM. 2010; 96(7):1911-30. 8-Dat-922582:02 MICROALBUMIN: CREATININE RATIO Comments: send results to Dr. Santana fax: [phone]; A courtesy copy of this report has been sent [phone].PATIENT NOT FASTINGPERFORMED BY: DasientFormerly [facility] [id number] (72116) AND (50558) Alb/Creat Ratio 4191.2 {mg/g_creat} (Abnormal) Range: 0.0-30.0 Albumin, Urine 2380.6 ug/mL (Normal) Comments: Results confirmed ondilution. Creatinine, Urine 56.8 mg/dL (Normal) 6-Wzq-226795:02 CBC, PLATELETS & MANUAL Comments: send results to Dr. Santana fax: [phone]; A courtesy copy of this report has been sent [phone].PATIENT NOT FASTINGPERFORMED BY: LabCoDeborah Heart and Lung CenterVyjszf1390 [facility] [id number] Information: VIT D25, PTH DIFF (36532) Immature Grans (Abs) 0.0 {x10E3/uL} (Normal) Range: [...] 3.77-5.28 WBC 5.4 {x10E3/uL} (Normal) Range: 3.4-10.8 8-Gnv-243685:02 MAGNESIUM (11737) Comments: send results to Dr. Santana fax: [phone]; A courtesy copy of this report has been sent [phone].PATIENT NOT FASTINGPERFORMED BY: DasientFormerly [facility] [id number] Magnesium, Serum 1.8 mg/dL (Normal) Range: 1.6-2.3 7-Lch-140023:02 RENAL FUNCTION PANEL (64440) Comments: send results to Dr. Santana fax: [phone]; A courtesy copy of this report has been sent [phone].PATIENT NOT FASTINGPERFORMED BY: DasientFormerly [facility] [id number] Albumin, Serum 3.7 g/dL (Normal) Range: 3.5-4.8 [...] Glucose, Serum 119 mg/dL (Abnormal) Range: 65-99 5-Zop-613085:07 LIPID PANEL (60582) Comments: PATIENT WAS FASTINGPERFORMED BY: [employer] [facility] [id number] LDL/HDL Ratio 1.4 {ratio} (Normal) Range: 0.0-3.2 Comments: LDL/HDL Ratio Men Women 1/2 Avg.Risk 1.0 1.5 Av g.Risk 3.6 3.2 2X Avg.Risk 6.2 5.0 3X Avg.Risk 8.0 6.1 LDL Cholesterol Calc 102 mg/dL (Abnormal) Range: 0-99 VLDL Cholesterol Cesar 17 mg/dL (Normal) Range: 5-40 HDL Cholesterol 75 mg/dL (Normal) Triglycerides 84 mg/dL (Normal) Range: 0-149 Cholesterol, Total 194 mg/dL (Normal) Range: 100-199 6-Rmk-859877:07 CBC W/AUTO DIFF WBC (26224) Comments: PATIENT WAS FASTINGPERFORMED BY: [facility] Wmjqbv8169 [facility] [id number] Immature Grans (Abs) 0.0 {x10E3/uL} (Normal) Range: [...] 3.77-5.28 WBC 4.8 {x10E3/uL} (Normal) Range: 3.4-10.8 5-Bgb-760434:07 METABOLIC PANEL, COMPREHENSIVE Comments: PATIENT WAS FASTINGPERFORMED BY: [facility] Lnsvvz8019 [facility] [id number] (54410) ALT (SGPT) 14 [iU]/L (Normal) Range: 0-32 [...] 8-27 Glucose 158 mg/dL (Abnormal) Range: 65-99 0-Nql-740614:07 VITAMIN B-12 (CYANOCOBALAMIN) Comments: PATIENT WAS FASTINGPERFORMED BY: [facility] Ndoipx5080 [facility] [id number] (32500) Vitamin B12 771 pg/mL (Normal) Range: 232-1245 13-May-20170:00 CDIFF (Molecular) Comments: [facility] [address] [place], [address] CDIFF See Note (Normal) Comments: Cdiff-MolecularNormal Reference Range = Negative C. Diff DNA Negative- No toxigenic C. Diff DNA DetectedNAAT METHOD Testing was performed using nucleic acid amplification :32 Rapid Flu (50306 x 2) Influenza A Ag Negative (Normal) :35 CBC with auto diff (34815) Comments: PATIENT WAS FASTINGPERFORMED BY: [facility] Xchwlg2424 [facility] [id number] Immature Grans (Abs) 0.0 {x10E3/uL} (Normal) Range: [...] PANEL, COMPREHENSIVE Comments: PATIENT WAS FASTINGPERFORMED BY: LabCoDeborah [facility] and Lung CenterByoqtm7091 [facility] [id number] (62737) ALT (SGPT) 16 [iU]/L (Normal) Range: 0-32 [...] (Abnormal) Range: 65-99 :51 HgA1C , Office (23809) HgA1C , Office 6.7 % (Normal) Range: 4.6 - 7.1 9-Uim-079376:50 CALCIFEDIOL (08621) Comments: A courtesy copy of this report has been sent [phone].PATIENT WAS FASTINGPERFORMED BY: [employer] Technologiesblin [place] [id number] Vitamin D, 25-Hydroxy 40.7 ng/mL (Normal) Range: 30.0-100.0 Comments: Vitamin D deficiency has been defined by the [place] ofUniversity Hospitals Conneaut Medical Centercine and an Endocrine Society practice guideline as alevel of serum 25-OH vitamin D less than 20 ng/mL (1,2).The Endocrine Society went on to further define vitamin Dinsufficiency as a level between 21 and 29 ng/mL (2).1. IOM ([place] of Medicine). 2010. Dietary reference intakes for calcium and D. [place]: The National Academies Press.2. Mira MF, Rosette LOPEZ, Tommy SWAIN, et al. Evaluation, treatment, and prevention of vitamin D deficiency: an Endocrine Society clinical practice guideline. JCEM. 2010; 96(7):1911-30. 3-Dmf-702593:50 PTH (PARATHORMONE) (61837) Comments: A courtesy copy of this report has been sent [phone].PATIENT WAS FASTINGPERFORMED BY: [employer]6[address] Technologiesin [place] [id number] PTH, Intact 20 pg/mL (Normal) Range: 15-65 4-Rqa-841277:50 MICROALBUMIN: CREATININE RATIO Comments: A courtesy copy of this report has been sent [phone].PATIENT WAS FASTINGPERFORMED BY: [employer] Giejae9054 [address] Technologiesin [place] [id number] (56312) AND (37275) Microalb/Creat Ratio 4376.0 {mg/g_creat} (Abnormal) Range: 0.0-30.0 Microalbumin, Urine 3369.5 ug/mL (Normal) Comments: Results confirmed ondilution. Creatinine, Urine 77.0 mg/dL (Normal) :50 Renal function Panel Comments: A courtesy copy of this report has been sent [phone].PATIENT WAS FASTINGPERFORMED BY: SeatIDDeborah Heart and Lung CenterDjvnej5718 [facility] [id number] Information: SARA DR. SANTANA [phone] (67043) Albumin, Serum 3.8 g/dL (Normal) Range: 3.5-4.8 [...] Glucose, Serum 203 mg/dL (Abnormal) Range: 65-99 3-Mrg-264688:50 Magnesium (84275) Comments: A courtesy copy of this report has been sent [phone].PATIENT WAS FASTINGPERFORMED BY: SeatIDDeborah Heart and Lung CenterDpffei6513 [facility] [id number] Magnesium, Serum 1.8 mg/dL (Normal) Range: 1.6-2.3 2-Lxk-278379:53 CBC with auto diff (59480) Comments: A courtesy copy of this report has been sent [phone].PATIENT WAS FASTINGPERFORMED BY: SeatIDDeborah Heart and Lung CenterIblywu3900 [facility] [id number] Immature Grans (Abs) 0.0 {x10E3/uL} (Normal) Range: [...] {x10E3/uL} (Normal) Range: 3.4-10.8 :53 LIPID PANEL (49531) Comments: A courtesy copy of this report has been sent [phone].PATIENT WAS FASTINGPERFORMED BY: [facility]6370 [facility] [id number] LDL/HDL Ratio 1.2 {ratio_units} (Normal) Range: 0.0-3.2 [...] copy of this report has been sent [phone].PATIENT WAS FASTINGPERFORMED BY: [employer] Nlpkbg1453 [facility] [id number] (94275) ALT (SGPT) 11 [iU]/L (Normal) Range: 0-32 [...] (Abnormal) Range: 65-99 :57 HgA1C , Office (63813) HgA1C , Office 7.1 % (Normal) Range: 4.6 - 7.1 :09 LIPID PANEL (53940) Comments: PATIENT WAS FASTINGPERFORMED BY: [employer] Gpbbto0671 [facility] [id number] LDL/HDL Ratio 1.3 {ratio_units} (Normal) Range: 0.0-3.2 [...] PANEL, COMPREHENSIVE Comments: PATIENT WAS FASTINGPERFORMED BY: LabCoDeborah Heart and Lung CenterIhbcoc3485 [facility] [id number] (16259) ALT (SGPT) 12 [iU]/L (Normal) Range: 0-32 [...] (Abnormal) Range: 65-99 :50 HgA1C , Office (59703) HgA1C , Office 6.7 % (Normal) Range: 4.6 - 7.1 :25 Magnesium, Serum 1.9 mg/dL (Normal) Comments: PATIENT WAS FASTINGPERFORMED BY: [employer] Road[address]ublin [place] [id number] Range: 1.6-2.3 :25 Microalb/Creat Ratio, Randm Ur Comments: PATIENT WAS FASTINGPERFORMED BY: [employer] Road[address]ublin [place] [id number] Microalb/Creat Ratio 2652.0 {mg/g_creat} Range: 0.0-30.0 (Abnormal) Microalbumin, Urine 2482.3 ug/mL (Normal) Comments: Results confirmed ondilution. Creatinine, Urine 93.6 mg/dL (Normal) PTH, Intact 26 pg/mL (Normal) Comments: PATIENT WAS FASTINGPERFORMED BY: [employer] Mnsphz[address] RoadTRUE linkswearblin [place] [id number] :25 Range: 15-65 :25 Renal Panel (10) Comments: PATIENT WAS FASTINGPERFORMED BY: SeatID Duupwc11[address] RoadDublin [place] [id number] Phosphorus, Serum 4.3 mg/dL (Normal) Range: 2.5-4.5 :25 Thyroxine (T4) Free, Direct, S Comments: PATIENT WAS FASTINGPERFORMED BY: [employer] Xiwhsl[address] Road[address]ublin [place] [id number] T4,Free(Direct) 1.08 ng/dL (Normal) Range: 0.82-1.77 : TSH 2.980 {uIU/mL} Comments: PATIENT WAS FASTINGPERFORMED BY: [employer] Hifbhm[address] RoadDublin [place] [id number] 25 (Normal) Range: 0.450-4.500 : Vitamin D, 25-Hydroxy 37.1 ng/mL (Normal) Comments: PATIENT WAS FASTINGPERFORMED BY: SeatIDDeborah Heart and Lung CenterIbirmb6292 [facility] [id number] 25 Range: 30.0-100.0 Comments: Vitamin D deficiency has been defined by the [place] ofMedicine and an Endocrine Society practice guideline as alevel of serum 25-OH vitamin D less than 20 ng/mL (1,2).The Endocrine Society went on to further define vitamin Dinsufficiency as a level between 21 and 29 ng/mL (2).1. IOM ([place] of Medicine). 2010. Dietary reference intakes for calcium and D. [place]: The National Academies Press.2. Mira MF, Rosette LOPEZ, Tommy SWAIN, et al. Evaluation, treatment, and prevention of vitamin D deficiency: an Endocrine Society clinical practice guideline. JCEM. 2010; 96(7):1911-30. :25 CBC W/AUTO DIFF WBC (51138) Comments: PATIENT WAS FASTINGPERFORMED BY: [employer] Utpcxj5573 [facility] [id number] Immature Grans (Abs) 0.0 {x10E3/uL} (Normal) Range: [...] COMPREHENSIVE Comments: PATIENT WAS FASTINGPERFORMED BY: [facility] Kugnvx7650 [facility] [id number]; non- emergent till apt (06267) ALT (SGPT) 10 [iU]/L (Normal) Range: 0-32 [...] mg/dL (Abnormal) Range: 65-99 :25 LIPID PANEL (99596) Comments: PATIENT WAS FASTINGPERFORMED BY: [facility]6370 [facility] [id number] LDL/HDL Ratio 0.9 {ratio_units} (Normal) Range: 0.0-3.2 [...] (Normal) Range: 100-199 :54 HgA1C , Office (92943) HgA1C , Office 6.6 % (Normal) Range: 4.6 - 7.1 44-Usj-005279:1 Magnesium, Serum 2.1 mg/dL (Normal) Comments: PATIENT WAS FASTINGPERFORMED BY: [facility]6370 [facility] [id number] 2 Range: 1.6-2.3 68-Xnv-793252:12 Microalb/Creat Ratio, Randm Ur Comments: PATIENT WAS FASTINGPERFORMED BY: [facility]6370 [facility] [id number] Microalb/Creat Ratio 1863.4 {mg/g_creat} (Abnormal) Range: 0.0-30.0 Microalbumin, Urine 1416.2 ug/mL (Normal) Comments: Results confirmed ondilution. Creatinine, Urine 76.0 mg/dL (Normal) 61-Pjv-098456:12 Microscopic Examination Comments: PATIENT WAS FASTINGPERFORMED BY: [facility]6370 [facility] [id number] Bacteria None seen (Normal) Mucus Threads Present (Normal) Cast Type Hyaline casts (Normal) Casts Present {/lpf} (Abnormal) Epithelial Cells (non 0-10 {/hpf} Range: 0 - 10 renal) (Normal) RBC 3-10 {/hpf} Range: 0 - 2 (Abnormal) WBC 6-10 {/hpf} Range: 0 - 5 (Abnormal) PTH, Intact 36 pg/mL (Normal) Comments: PATIENT WAS FASTINGPERFORMED BY: [employer]6370 ElectroJetFormerly [facility], [facility] [id number] 0:12 Range: 15-65 Vitamin D, 25-Hydroxy 42.9 ng/mL (Normal) Comments: PATIENT WAS FASTINGPERFORMED BY: [employer]70 [employer]JetFormer[facility], [facility] [id number] 0:12 Range: 30.0-100.0 Comments: Vitamin D deficiency has been defined by the [place] ofUniversity Hospitals Conneaut Medical Centercine and an Endocrine Society practice guideline as alevel of serum 25-OH vitamin D less than 20 ng/mL (1,2).The Endocrine Society went on to further define vitamin Dinsufficiency as a level between 21 and 29 ng/mL (2).1. IOM ([place] of Medicine). 2010. Dietary reference intakes for calcium and D. [place]: The National Academies Press.2. Mira MF, Rosette NC, Tommy SWAIN, et al. Evaluation, treatment, and prevention of vitamin D deficiency: an Endocrine Society clinical practice guideline. JCEM. 2010; 96(7):1911-30. 16-Dbl-205400:12 URINALYSIS, W/ MICRO (27197) Comments: PATIENT WAS FASTINGPERFORMED BY: [employer]6370 [facility] [id number] Microscopic Examination See below: (Normal) Comments: Microscopic was indicated and was performed. Nitrite, Urine Negative (Normal) Urobilinogen,Semi-Qn 0.2 mg/dL (Normal) Range: 0.2-1.0 Bilirubin Negative (Normal) Occult Blood Negative (Normal) Ketones Negative (Normal) Glucose Negative (Normal) Protein 4+ (Abnormal) WBC Esterase Trace (Abnormal) Appearance Clear (Normal) Urine-Color Yellow (Normal) pH 6.0 (Normal) Range: 5.0-7.5 Specific [place] 1.015 (Normal) Range: 1.005-1.030 78-Mhj-803487:12 CBC W/AUTO DIFF WBC (83184) Comments: PATIENT WAS FASTINGPERFORMED BY: SeatIDDeborah Heart and Lung CenterBxdhgh1331 [facility] [id number] Immature Grans (Abs) 0.0 {x10E3/uL} (Normal) Range: [...] 3.77-5.28 WBC 6.2 {x10E3/uL} (Normal) Range: 3.4-10.8 70-Baj-767683:12 METABOLIC PANEL, COMPREHENSIVE Comments: PATIENT WAS FASTINGPERFORMED BY: [facility]6370 [facility] [id number] (91617) ALT (SGPT) 14 [iU]/L (Normal) Range: 0-32 [...] Glucose, Serum 154 mg/dL (Abnormal) Range: 65-99 79-Ivz-290262:12 LIPID PANEL (50338) Comments: PATIENT WAS FASTINGPERFORMED BY: LabCoDeborah [facility] and Lung CenterXrowlm3201 [facility] [id number] LDL/HDL Ratio 0.7 {ratio_units} (Normal) Range: 0.0-3.2 Comments: LDL/HDL Ratio Men Women 1/2 Avg.Risk 1.0 1.5 Av g.Risk 3.6 3.2 2X Avg.Risk 6.2 5.0 3X Avg.Risk 8.0 6.1 LDL Cholesterol Calc 49 mg/dL (Normal) Range: 0-99 VLDL Cholesterol Cesar 14 mg/dL (Normal) Range: 5-40 HDL Cholesterol 75 mg/dL (Normal) Triglycerides 68 mg/dL (Normal) Range: 0-149 Cholesterol, Total 138 mg/dL (Normal) Range: 100-199 35-Egn-449147:50 HgA1C , Office (54421) HgA1C , Office 6.7 % (Normal) Range: 4.6 - 7.1 55-Xzq-561123:36 VITAMIN B-12 (CYANOCOBALAMIN) Comments: PATIENT WAS FASTINGPERFORMED BY: [facility]6370 [facility] [id number] (28067) Vitamin B12 802 pg/mL (Normal) Range: 211-946 73-Uds-962418:36 LIPID PANEL (74985) Comments: PATIENT WAS FASTINGPERFORMED BY: [facility]6370 [facility] [id number] LDL/HDL Ratio 0.8 {ratio_units} (Normal) Range: 0.0-3.2 [...] Cholesterol, Total 161 mg/dL (Normal) Range: 100-199 71-Ser-146288:36 LDH (LD) (LACTATE DEHYDROGENASE) Comments: PATIENT WAS FASTINGPERFORMED BY: [facility]6370 [facility] [id number] (01296) LDH 217 [iU]/L (Normal) Range: 119-226 60-Ual-030060:36 CBC W/AUTO DIFF WBC (45990) Comments: PATIENT WAS FASTINGPERFORMED BY: [facility]6370 [facility] [id number] Immature Grans (Abs) 0.0 {x10E3/uL} (Normal) Range: [...] 3.77-5.28 WBC 10.6 {x10E3/uL} (Normal) Range: 3.4-10.8 66-Duo-312699:36 METABOLIC PANEL, COMPREHENSIVE Comments: PATIENT WAS FASTINGPERFORMED BY: [facility]6370 [facility] [id number] (77472) ALT (SGPT) 15 [iU]/L (Normal) Range: 0-32 [...] Glucose, Serum 137 mg/dL (Abnormal) Range: 65-99 77-Zot-003282:36 TSH (63634) Comments: PATIENT WAS FASTINGPERFORMED BY: [facility] Kzqidx1007 [facility] [id number] TSH 0.560 {uIU/mL} (Normal) Range: 0.450-4.500 45-Ryl-60096:02 Renal function Panel (28408) Comments: PATIENT WAS FASTINGPERFORMED BY: [facility] Uiawnj7794 [facility] [id number] Albumin, Serum 3.7 g/dL (Normal) Range: 3.5-4.8 [...] 137 mg/dL (Abnormal) Range: 65-99 :02 MAGNESIUM (89846) Comments: PATIENT WAS FASTINGPERFORMED BY: DasientFormerly [facility] [id number] Magnesium, Serum 2.2 mg/dL (Normal) Range: 1.6-2.3 :02 MICROALBUMIN: CREATININE RATIO Comments: PATIENT WAS FASTINGPERFORMED BY: [facility] CenterTRUE linkswearFormerly [facility] [id number] (20334) AND (42434) Microalb/Creat Ratio 2038.7 {mg/g_creat} (Abnormal) Range: 0.0-30.0 Microalbumin, Urine 1223.2 ug/mL (Normal) Comments: Results confirmed ondilution. Creatinine, Urine 60.0 mg/dL (Normal) :02 CBC WITH MANUAL DIFF Comments: PATIENT WAS FASTINGPERFORMED BY: [facility] CenterTRUE linkswearFormerly [facility] [id number] Information: [id number] (02911) Immature Grans (Abs) 0.0 {x10E3/uL} (Normal) Range: [...] {x10E3/uL} (Normal) Range: 3.4-10.8 :02 HGB A1C (39601) Comments: PATIENT WAS FASTINGPERFORMED BY: [employer]6370 [facility] [id number] Hemoglobin A1c 6.4 % (Abnormal) Range: 4.8-5.6 Comments: . Pre-diabetes: 5.7 - 6.4 Diabetes: >6.4 Glycemic control for adults with diabetes: <7.0 :02 Lipid Panel (32484) Comments: PATIENT WAS FASTINGPERFORMED BY: [employer] Fumpxn8589 [facility] [id number] LDL/HDL Ratio 1.1 {ratio_units} (Normal) Range: 0.0-3.2 [...] Cholesterol, Total 160 mg/dL (Normal) Range: 100-199 20-Hkq-740441:03 HgA1C , Office (03023) HgA1C , Office 6.1 % (Normal) Range: 4.6 - 7.1 :24 CBC W/AUTO DIFF WBC Comments: PATIENT WAS FASTINGPERFORMED BY: LabCoDeborah Heart and Lung CenterNeavks2175 [facility] [id number] Information: [id number] (40968) Immature Grans (Abs) 0.0 {x10E3/uL} (Normal) Range: [...] CREATININE RATIO Comments: PATIENT WAS FASTINGPERFORMED BY: SeatIDDeborah Heart and Lung CenterJdgvye5385 [facility] [id number] (69325) AND (07176) Microalb/Creat Ratio 1223.8 {mg/g_creat} (Abnormal) Range: 0.0-30.0 Microalbumin, Urine 1012.1 ug/mL (Abnormal) Range: 0.0-17.0 Comments: Results confirmed ondilution. Creatinine, Urine 82.7 mg/dL (Normal) Range: 15.0-278.0 :24 METABOLIC PANEL, COMPREHENSIVE Comments: PATIENT WAS FASTINGPERFORMED BY: [facility] [[email or web address]]Rkdywl1543 [facility] [id number] (38821) ALT (SGPT) 12 [iU]/L (Normal) Range: 0-32 [...] mg/dL (Abnormal) Range: 65-99 :24 LIPID PANEL (46258) Comments: PATIENT WAS FASTINGPERFORMED BY: [facility] Mcmkqk7640 [facility] [id number] LDL/HDL Ratio 1.1 {ratio_units} (Normal) Range: 0.0-3.2 [...] Range: 100-199 :30 CBC W/Diff, Automated Comments: [facility] [address] [place], [place], [address] Absolute Lymph 0.83 {X10_3/ul} (Normal) Range: 0.83-4.51 [...] (Normal) Range: 4.4-11.0 :30 Hemoglobin A1c Comments: [facility] [address] [place], [place], [id number](002) HGB A1C 6.1 % (Normal) Range: 4.2-6.3 :30 Magnesium Comments: [facility] [address] [place], [place], [address](033) MG 1.8 mg/dL (Normal) Range: 1.8-2.4 :30 Protein+Creatinine Ratio,Urine Comments: [facility] [address] [place], [place], [address](387) PROT:CRE RATIO 2121 {mg/g_CRE} (Abnormal) Range: 0-200 PROTEIN,UR.RAN. 164.2 mg/dL (Abnormal) UR CREAT 77.40 mg/dL (Normal) :30 Renal Profile Comments: [facility] [address] [place], [place], [address](447) CO2 27.0 mmol/L (Normal) Range: 21.0-32.0 CL [...] 126 mg/dLsuggests DIABETES MELLITUS per A.D.A. criteria. 67-Aiv-80666:00 24 HR UR Creatinine Clearance Comments: [facility] Kgvxlrqjof1364 [facility] [place], [place], [address] CREAT CLEARANCE 24 ml/min (Abnormal) Range: 100-200 URINE CREAT 20.6 mg/dL (Normal) EST GFR - AA 38 mL/min (Abnormal) Comments: GFR Calc EST GFR 31 mL/min (Abnormal) Comments: Non- GFR Calc SERUM CREAT 1.7 mg/dL (Abnormal) Range: 0.6-1.0 UR TOTAL VOLUME 2800 mL (Normal) UR COLLECT TIME 24.0 {HOURS} (Normal) 00-Vyg-62327:00 Protein, Urine 24HR Comments: [facility] Wuiqiuxzff7829 [facility] [place], [address] 24hr UR PROTEIN 1178.8 {mg/24HR} (Abnormal) URINE PROTEIN 42.1 mg/dL (Abnormal) UR TOTAL VOLUME 2800 mL (Normal) UR COLLECT TIME 24.0 {HOURS} (Normal) 8-Uzp-017699:29 Metabolic Panel, Basic Comments: PATIENT NOT FASTINGPERFORMED BY: [employer] LtdAscension [facility]6370 [facility] [id number] Information: [id number] (49099) Calcium, Serum 9.3 mg/dL (Normal) Range: 8.7-10.3 [...] Basic Comments: tuesday; PATIENT NOT FASTINGPERFORMED BY: SeatIDDeborah Heart and Lung CenterKfniox0127 [facility] [id number] Information: [id number] (71740) Calcium, Serum 9.0 mg/dL (Normal) Range: 8.7-10.3 [...] Glucose, Serum 149 mg/dL (Abnormal) Range: 65-99 74-Amg-317150:32 HgA1C , Office (05606) HgA1C , Office 6.2 % (Normal) Range: 4.6 - 7.1 :31 Rapid Strep Test, Office (33171) Comments: neg Rapid Strep Test, Office Negative (Normal) :06 THROAT CULTURE (81181) Comments: PATIENT NOT FASTINGPERFORMED BY: CB [facility] Ovooot35[address]Dublin [place] [id number] Information: [id number] Result 1 RRF (Normal) Comments: Routine respiratory luis Upper Respiratory Culture Final report (Normal) :52 TSH (50185) Comments: PATIENT WAS FASTINGPERFORMED BY: CB [facility] Tsqyjr4614 [address] RoadDublin [place] [id number] TSH 2.190 {uIU/mL} (Normal) Range: 0.450-4.500 :52 Vitamin D Hydroxy (70657) Comments: PATIENT WAS FASTINGPERFORMED BY: CB [facility] Ncrklt0619 [address] RoadDublin [place] [id number] Vitamin D, 25-Hydroxy 43.8 ng/mL (Normal) Range: 30.0-100.0 Comments: Vitamin D deficiency has been defined by the [place] ofMedicine and an Endocrine Society practice guideline as alevel of serum 25-OH vitamin D less than 20 ng/mL (1,2).The Endocrine Society went on to further define vitamin Dinsufficiency as a level between 21 and 29 ng/mL (2).1. IOM ([place] of Medicine). 2010. Dietary reference intakes for calcium and D. [place]: The National Academies Press.2. Mira MF, Rosette NC, Tommy SWAIN, et al. Evaluation, treatment, and prevention of vitamin D deficiency: an Endocrine Society clinical practice guideline. JCEM. 2010; 96(7):1911-30. :52 LIPID PANEL (31094) Comments: PATIENT WAS FASTINGPERFORMED BY: CB [facility] Gpuzxb2270 [address]Dublin [place] [id number] LDL/HDL Ratio 1.3 {ratio_units} (Normal) Range: 0.0-3.2 [...] auto diff Comments: PATIENT WAS FASTINGPERFORMED BY: LabCoDeborah Heart and Lung CenterYeynid3901 [facility] [id number] Information: [id number] (66081) Immature Grans (Abs) 0.0 {x10E3/uL} (Normal) Range: [...] PANEL, COMPREHENSIVE Comments: PATIENT WAS FASTINGPERFORMED BY: LabCoDeborah Heart and Lung CenterCvxwgj3846 [facility] [id number] (95049) ALT (SGPT) 19 [iU]/L (Normal) Range: 0-32 [...] Glucose, Serum 127 mg/dL (Abnormal) Range: 65-99 3-Svi-805195:08 HgA1C , Office (68453) HgA1C , Office 6.4 % (Normal) Range: 4.6 - 7.1 :00 Creatinine Clearance Comments: PATIENT NOT FASTINGPERFORMED BY: [facility]6370 [facility] [id number] Information: [id number] S TART Creatinine Clearance 33 mL/min (Abnormal) [...] Qn, 24-Hr Comments: PATIENT NOT FASTINGPERFORMED BY: [facility] [id number] Urine Prot,24hr calculated 1309.8 {mg/24_hr} (Abnormal) Range: 30.0-150.0 Protein,Total,Urine 70.8 mg/dL (Abnormal) Range: 0.0-15.0 :01 CBC W/Diff, Automated Comments: Test performed at:[facility] [address] [place] [address] Absolute Neut 3.1 {X10_3/uL} (Normal) [...] Range: 4.4-11.0 :01 Magnesium Comments: Test performed at:[facility] [address] [place] [address] MG 2.0 mg/dL (Normal) Range: 1.8-2.4 :01 Protein+Creatinine Ratio,Urine Comments: Test performed at:[facility] [address] [place] [address] PROT:CRE RATIO 2232 {mg/g_CRE} (Abnormal) Range: 0-200 PROTEIN,UR.RAN. 160.3 mg/dL (Abnormal) UR CREAT 71.8 mg/dL (Normal) :01 Renal Profile Comments: Test performed at:[facility] [address] [place] [address] CO2 32.0 mmol/L (Normal) Range: 21.0-32.0 CL [...] mg/dL (Normal) Range: 70-110 :08 LIPID PANEL (52779) Comments: PATIENT WAS FASTINGPERFORMED BY: SeatIDDeborah Heart and Lung CenterWgtkfh2773 [facility] [id number] LDL/HDL Ratio 1.0 {ratio_units} (Normal) Range: 0.0-3.2 [...] METABOLIC PANEL, Comments: PATIENT WAS FASTINGPERFORMED BY: [facility]6370 [facility] [id number] Information: [id number] COMPREHENSIVE (68557) ALT (SGPT) 29 [iU]/L (Normal) Range: 0-32 [...] (Abnormal) Range: 65-99 :59 HgA1C , Office (18032) HgA1C , Office 6.5 % (Normal) Range: 4.6 - 7.1 :54 CBC W/AUTO DIFF WBC Comments: PATIENT WAS FASTINGPERFORMED BY: LabCoDeborah Heart and Lung CenterNckgrw6458 [facility] [id number] Information: [id number] (39219) Immature Grans (Abs) 0.0 {x10E3/uL} (Normal) Range: [...] COMPREHENSIVE Comments: PATIENT WAS FASTINGPERFORMED BY: Lab[facility] Egwhlp8647 [facility] [id number]; non- emergent till apt (15136) ALT (SGPT) 13 [iU]/L (Normal) Range: 0-32 [...] mg/dL (Abnormal) Range: 65-99 :54 LIPID PANEL (30964) Comments: PATIENT WAS FASTINGPERFORMED BY: LabCoDeborah Heart and Lung CenterZwgbpv8598 [facility] [id number] LDL/HDL Ratio 1.1 {ratio_units} (Normal) Range: 0.0-3.2 [...] (Normal) Range: 100-199 :29 HgA1C , Office (73460) HgA1C , Office 6.6 % (Normal) Range: 4.6 - 7.1 :12 CBC W/Diff, Automated Comments: Test performed at:[facility] [address] [place], [place] [address] ; handled by Dr. Santana Absolute Lymph [...] Range: 4.4-11.0 :12 Magnesium Comments: Test performed at:[facility] [address] [place] [address] MG 2.0 mg/dL (Normal) Range: 1.8-2.4 :12 Microalb:Creat Ratio,Random UR Comments: Test performed at:[facility] [address] [place] [address] ; Dr. Angelo LING:CREAT 1483.0 {mg/g_CRE} (Abnormal) MICROALBUMIN,UR 918.0 mg/L (Normal) UR CREAT 61.9 mg/dL (Normal) :12 Renal Profile Comments: Test performed at:[facility] [address] [place] [address] CO2 29.0 mmol/L (Normal) Range: 21.0-32.0 CL [...] 126 mg/dLsuggests DIABETES MELLITUS per A.D.A. criteria. 25-Nwh-814358:20 LIPID PANEL (00164) Comments: PATIENT WAS FASTINGPERFORMED BY: Food52lin6370 [facility] [id number] LDL/HDL Ratio 1.0 {ratio_units} (Normal) Range: 0.0-3.2 [...] Cholesterol, Total 151 mg/dL (Normal) Range: 100-199 54-Biu-708562:20 METABOLIC PANEL, Comments: PATIENT WAS FASTINGPERFORMED BY: LabCoDeborah Heart and Lung CenterWosqrw6105 [facility] [id number] Information: [id number] COMPREHENSIVE (24333) ALT (SGPT) 16 [iU]/L (Normal) Range: 0-32 [...] Glucose, Serum 148 mg/dL (Abnormal) Range: 65-99 96-Ytb-101821:21 CREATININE CLEARANCE Comments: PATIENT WAS FASTINGPERFORMED BY: LabCoDeborah Heart and Lung CenterNqiczv9903 [facility] [id number] Information: [id number] START 04/02/14@9AM FINISH 04/03/14 6:00 AM (39001) Creatinine Clearance 42 mL/min (Abnormal) Range: 88-128 Comments: The above range is based on 1.73 square meter average body surfacearea. Creatinine, Ur 24hr 812.3 {mg/24_hr} (Normal) Range: 800.0-1800.0 Creatinine, Urine 28.5 mg/dL (Normal) Range: 15.0-278.0 eGFR If Africn Am 45 mL/min/1.73 (Abnormal) eGFR If NonAfricn Am 39 mL/min/1.73 (Abnormal) Creatinine, Serum 1.33 mg/dL (Abnormal) Range: 0.57-1.00 54-Xii-613923:21 Total Protein,24 Hour Urine Comments: PATIENT WAS FASTINGPERFORMED BY: [facility]6370 [facility] [id number] (93885) Prot,24hr calculated 1559.0 {mg/24_hr} (Abnormal) Range: 30.0-150.0 Protein,Total,Urine 54.7 mg/dL (Abnormal) Range: 0.0-15.0 :57 LIPID PANEL (93318) Comments: PATIENT WAS FASTINGPERFORMED BY: [facility]6370 [facility] [id number] LDL/HDL Ratio 1.1 {ratio_units} (Normal) Range: 0.0-3.2 [...] MANUAL DIFF Comments: PATIENT WAS FASTINGPERFORMED BY: [facility]6370 [facility] [id number] Information: [id number] (94934) Immature Grans (Abs) 0.0 {x10E3/uL} (Normal) Range: [...] PANEL, COMPREHENSIVE Comments: PATIENT WAS FASTINGPERFORMED BY: LabCoDeborah Heart and Lung CenterCgeijk1024 [facility] [id number] (16516) ALT (SGPT) 10 [iU]/L (Normal) Range: 0-32 [...] Result Units: mg/dL AdultPerformed at: - [facility] [address] [id number] Director: Yousuf Bernardo PhD, Phone: [phone] :[phone] C4 37 (Abnormal) Range: 9-36 0 [...] MANUAL DIFF Comments: PATIENT WAS FASTINGPERFORMED BY: [facility]6370 [facility] [id number] Information: [id number] (27027) Immature Grans (Abs) 0.0 {x10E3/uL} (Normal) Range: [...] PANEL, COMPREHENSIVE Comments: PATIENT WAS FASTINGPERFORMED BY: [facility]6370 [facility] [id number] (85451) ALT (SGPT) 16 [iU]/L (Normal) Range: 0-32 [...] Glucose, Serum 132 mg/dL (Abnormal) Range: 65-99 71-Fic-342633:53 CREATININE CLEARANCE Comments: PATIENT NOT FASTINGPERFORMED BY: EVE LabCoDeborah Heart and Lung CenterObkktf2386 [facility] [id number] Information: [id number] START 10/30/13@8AM F INISH 10/31/13@8AM 2650ML (02314) Creatinine Clearance 44 mL/min (Abnormal) Range: 88-128 Comments: The above range is based on 1.73 square meter average body surfacearea. Creatinine, Ur 24hr 877.2 {mg/24_hr} (Normal) Range: 800.0-1800.0 Creatinine, Urine 33.1 mg/dL (Normal) Range: 15.0-278.0 eGFR If Africn Am 44 mL/min/1.73 (Abnormal) eGFR If NonAfricn Am 38 mL/min/1.73 (Abnormal) Creatinine, Serum 1.37 mg/dL (Abnormal) Range: 0.57-1.00 79-Dvo-415539:53 Total Protein,24 Hour Urine Comments: PATIENT NOT FASTINGPERFORMED BY: [facility] [id number] (35294) Prot,24hr calculated 3458.3 {mg/24_hr} (Abnormal) Range: 30.0-150.0 Protein,Total,Urine 130.5 mg/dL (Abnormal) Range: 0.0-15.0 11-Hhk-325634:31 HgA1C , Office (87470) HgA1C , Office 6.4 % (Normal) Range: 4.6 - 7.1 78-Lui-327553:27 Microscopic Examination Comments: PATIENT WAS FASTINGPERFORMED BY: [facility] [id number] Bacteria Few (Normal) Mucus Threads Present (Normal) Epithelial Cells (non renal) 0-10 {/hpf} (Normal) Range: 0 - 10 RBC 3-10 {/hpf} (Abnormal) Range: 0 - 2 WBC 6-10 {/hpf} (Abnormal) Range: 0 - 5 :32 LIPID PANEL (34379) Comments: PATIENT WAS FASTINGPERFORMED BY: [facility] [id number] LDL/HDL Ratio 1.0 {ratio_units} (Normal) Range: 0.0-3.2 [...] Comments: PATIENT WAS FASTINGPERFORMED BY: CB [facility] ActionTax.caDublin [place] [id number] (63253) AND (92414) Microalb/Creat Ratio 1998.9 {mg/g_creat} (Abnormal) Range: 0.0-30.0 Creatinine, Urine 73.4 mg/dL (Normal) Range: 15.0-278.0 Microalbumin, Urine 1467.2 ug/mL (Abnormal) Range: 0.0-17.0 :32 URINALYSIS, W/ MICRO (44841) Comments: PATIENT WAS FASTINGPERFORMED BY: [facility]6370 [facility] [id number] Microscopic Examination See below: (Normal) Comments: Microscopic was indicated and was performed. Nitrite, Urine Negative (Normal) Urobilinogen,Semi-Qn 0.2 mg/dL (Normal) Range: 0.0-1.9 Bilirubin Negative (Normal) Occult Blood Trace (Abnormal) Ketones Negative (Normal) Glucose Negative (Normal) Protein 3+ (Abnormal) WBC Esterase Trace (Abnormal) Appearance Clear (Normal) Urine-Color Yellow (Normal) pH 6.5 (Normal) Range: 5.0-7.5 Specific [place] 1.015 (Normal) Range: 1.005-1.030 :32 CBC WITH MANUAL DIFF Comments: PATIENT WAS FASTINGPERFORMED BY: [facility]6370 [facility] [id number] Information: [id number] (54515) Immature Grans (Abs) 0.0 {x10E3/uL} (Normal) Range: [...] PANEL, COMPREHENSIVE Comments: PATIENT WAS FASTINGPERFORMED BY: LabCoDeborah Heart and Lung CenterOnafts5733 [facility] [id number] (62886) ALT (SGPT) 16 [iU]/L (Normal) Range: 0-32 [...] Glucose, Serum 135 mg/dL (Abnormal) Range: 65-99 65-Hlt-12364:32 VITAMIN B-12 (CYANOCOBALAMIN) Comments: PATIENT WAS FASTINGPERFORMED BY: [employer] LabOutline AppCnzvxr0570 [facility] [id number] (36686) Vitamin B12 >1999 pg/mL (Abnormal) Range: 211-946 23-Kpr-541358:01 HgA1C , Office (83401) HgA1C , Office 6.4 % (Normal) Range: 4.6 - 7.1 :37 METABOLIC PANEL, COMPREHENSIVE Comments: PATIENT WAS FASTINGPERFORMED BY: [facility] Hzmjzq1286 [facility] [id number] (59014) ALT (SGPT) 12 [iU]/L (Normal) Range: 0-32 [...] (Abnormal) Range: 65-99 :37 Vitamin D Hydroxy (86102) Comments: PATIENT WAS FASTINGPERFORMED BY: Cenoplex70 [facility] [id number] Vitamin D, 25-Hydroxy 47.4 ng/mL (Normal) Range: 30.0-100.0 Comments: Vitamin D deficiency has been defined by the [place] ofUniversity [facility]als Conne[facility] Medical Centercine and an Endocrine Society practice guideline as alevel of serum 25-OH vitamin D less than 20 ng/mL (1,2).The Endocrine Society went on to further define vitamin Dinsufficiency as a level between 21 and 29 ng/mL (2).1. IOM ([place] of Medicine). 2010. Dietary reference intakes for calcium and D. [place]: The National Academies Press.2. Mira MF, Rosette LOPEZ, Tommy SWAIN, et al. Evaluation, treatment, and prevention of vitamin D deficiency: an Endocrine Society clinical practice guideline. JCEM. 2010; 96(7):1911-30. :37 LIPID PANEL (43209) Comments: PATIENT WAS FASTINGPERFORMED BY: [employer] Ibdepb4035 [facility] [id number] LDL/HDL Ratio 1.2 {ratio_units} (Normal) Range: 0.0-3.2 [...] Comments: PATIENT WAS FASTINGPERFORMED BY: EVE [facility] Vmflgm5023 [facility] [id number] Information: [id number] (17301) Immature Grans (Abs) 0.0 {x10E3/uL} (Normal) Range: [...] 24-Hr Comments: PATIENT NOT FASTINGPERFORMED BY: EVE [facility]Asc[facility]6370 [facility] [id number] Information: ADD [id number] AND DRAW FEE 99 6660 VOLUME 2600 164LBS 5' '3 Urine Prot,24hr calculated 920.4 {mg/24_hr} Range: 30.0-150.0 (Abnormal) Protein,Total,Urine 35.4 mg/dL Range: 0.0-15.0 (Abnormal) : Written Authorization WAR (Normal) Comments: PATIENT NOT FASTINGPERFORMED BY: [facility]Asc[facility]6370 [facility] [id number] Comments: Written Authorization Received.Authorization received from Chiqui BRICEÑO LPN [id number] by Marleen Sharma :52 Metabolic Panel, Basic Comments: PATIENT NOT FASTINGPERFORMED BY: [place] 7117770 [facility] [id number] Information: ADD [id number] AND DRAW FEE 99 6660 VOLUME 2600 164LBS 5' '3 (63994) Calcium, Serum 9.7 mg/dL (Normal) Range: 8.6-10.2 [...] mg/dL (Abnormal) Range: 65-99 :52 CREATININE CLEARANCE (22129) Comments: PATIENT NOT FASTINGPERFORMED BY: [facility]6370 [facility] [id number] Creatinine Clearance 46 mL/min (Abnormal) Range: 88-128 Comments: The above range is based on 1.73 square meter average body surfacearea. Creatinine, Ur 24hr 899.6 {mg/24_hr} (Normal) Range: 800.0-1800.0 Creatinine, Urine 34.6 mg/dL (Normal) Range: 15.0-278.0 :52 24 hour urine for Protein Comments: PATIENT NOT FASTINGPERFORMED BY: SeatIDDeborah Heart and Lung CenterGjlxrd0131 [facility] [id number] (19091) Microalb/Creat Ratio 695.4 {mg/g_creat} (Abnormal) Range: 0.0-30.0 Microalbumin, Urine 240.6 ug/mL (Abnormal) Range: 0.0-17.0 :13 HgA1C , Office (35834) HgA1C , Office 6.3 % (Normal) Range: 4.6 - 7.1 :01 Blood Glucose , Office (49810) Blood Glucose , Office 162 (Normal) 88-Irn-767831:02 Microscopic Examination Comments: PATIENT NOT FASTINGPERFORMED BY: SeatIDDeborah Heart and Lung CenterHhdkbe0687 [facility] [id number] Bacteria Few (Normal) Mucus Threads Present (Normal) [...] Hebert M.D.October 19, 2012 at 2:42:14 PM [id number] Signed GP/GP If you are the referring physician and would like to consult [facility] theradiologist who provided this interpretation, please contact Yasmany Pond at [phone]. If this radiologist is unavailable, youwill be directed to another radiologist to assist. If y ou are a patient with a question regarding this report, pleasecontactyour referring physician directly. Professional Interpretation Provided By: [employer], Phone , These documents contain legally protected [...] on 10/19/124 Sign by: Misael Hebert MD 89-Ibk-610021:59 TSH (58175) Comments: PATIENT WAS FASTINGPERFORMED BY: [employer] Isiaaj1537 [facility] [id number] TSH 1.230 {uIU/mL} (Normal) Range: 0.450-4.500 54-Hhr-138241:59 LIPID PANEL (78034) Comments: PATIENT WAS FASTINGPERFORMED BY: [employer] Lsdhzy3693 [facility] [id number] LDL/HDL Ratio 0.5 {ratio_units} (Normal) Range: 0.0-3.2 LDL Cholesterol Calc 47 mg/dL (Normal) Range: 0-99 Cholesterol, Total 149 mg/dL (Normal) Range: 100-199 HDL Cholesterol 91 mg/dL (Normal) Comments: According to ATP-III Guidelines, HDL-C >59 mg/dL is considered anegative risk factor for CHD. Triglycerides 57 mg/dL (Normal) Range: 0-149 VLDL Cholesterol Cesar 11 mg/dL (Normal) Range: 5-40 09-Wtx-968151:02 URINALYSIS, W/ MICRO Comments: PATIENT NOT FASTINGPERFORMED BY: [employer] PolicyStat [facility] [id number] Information: [id number] (70668) Microscopic Examination See below: (Normal) Nitrite, Urine Negative (Normal) Bilirubin Negative (Normal) Urobilinogen,Semi-Qn 0.2 mg/dL (Normal) Range: 0.0-1.9 Occult Blood Negative (Normal) Ketones Negative (Normal) Glucose Negative (Normal) Protein 3+ (Abnormal) WBC Esterase Negative (Normal) Appearance Clear (Normal) Urine-Color Yellow (Normal) pH 5.5 (Normal) Range: 5.0-7.5 Specific [place] 1.015 (Normal) Range: 1.005-1.030 64-Gke-871492:59 CBC WITH MANUAL DIFF Comments: PATIENT WAS FASTINGPERFORMED BY: [facility]6370 [facility] [id number] Information: [id number] (27632) Immature Grans (Abs) 0.0 {x10E3/uL} (Normal) Range: [...] 3.77-5.28 WBC 4.8 {x10E3/uL} (Normal) Range: 3.4-10.8 11-Ero-344550:59 METABOLIC PANEL, COMPREHENSIVE Comments: PATIENT WAS FASTINGPERFORMED BY: LabCoDeborah Heart and Lung CenterZlvcoa3330 [facility] [id number] (16799) ALT (SGPT) 14 [iU]/L (Normal) Range: 0-32 [...] Glucose, Serum 104 mg/dL (Abnormal) Range: 65-99 2-Ble-106158:37 HgA1C , Office (83896) HgA1C , Office 6.0 % (Normal) Range: 4.6 - 7.1 2-Zqp-205235:31 CRE CREAT 1.3 mg/dL (Abnormal) Range: 0.6-1.0 [...] Galan M.D.August 09, 2012 at 2:38:03 PM [id number] Signed PV/PV If you are the referring physician and would like to consult with theradiologist who provided this interpretation, please contact Donna Burnett M.D. at [phone]. If this radiologist is unavailable, youwillbe directed to another radiologist to assist. If you are a patient with a question regarding this report, pleasecontactyour referring physician evelyne cowan. Professional Interpretation Provided By: [employer], Phone , These documents contain legally protected [...] 08/09/12 1441 Sign by: Donna Martin MD 03-Yet-861282:31 CBC with manual diff Comments: PATIENT NOT FASTINGPERFORMED BY: [facility] Lbbknc3259 [facility] [id number] Information: [id number] (60158) Immature Grans (Abs) 0.0 {x10E3/uL} (Normal) Range: [...] 3.77-5.28 WBC 3.2 {x10E3/uL} (Abnormal) Range: 4.0-10.5 92-Eno-636826:31 Metabolic Panel, Comprehensive Comments: PATIENT NOT FASTINGPERFORMED BY: LabCoDeborah Heart and Lung CenterRzaodl9017 [facility] [id number] (86302) ALT (SGPT) 19 [iU]/L (Normal) Range: 0-32 [...] mg/dL (Abnormal) Range: 65-99 :31 LIPID PANEL (24210) Comments: PATIENT WAS FASTINGPERFORMED BY: Cenoplex70 [facility] [id number] LDL/HDL Ratio 0.8 {ratio_units} (Normal) Range: 0.0-3.2 [...] MANUAL DIFF Comments: PATIENT WAS FASTINGPERFORMED BY: [employer] SADeborah Heart and Lung CenterJnjxbw3765 [facility] [id number] Information: [id number] (62307) Immature Grans (Abs) 0.0 {x10E3/uL} (Normal) Range: [...] PANEL, COMPREHENSIVE Comments: PATIENT WAS FASTINGPERFORMED BY: LabCoDeborah Heart and Lung CenterAcrvht8524 [facility] [id number] (82640) ALT (SGPT) 22 [iU]/L (Normal) Range: 0-32 [...] (Abnormal) Range: 65-99 :45 HgA1C , Office (90181) HgA1C , Office 6.1 % (Normal) Range: 4.6 - 7.1 20-Ufz-524230:16 CRE CREAT 1.1 mg/dL (Abnormal) Range: 0.6-1.0 [...] Galan M.D.February 02, 2012 at 5:10:18 PM [id number] Signed PV/PV If you are the referring physician and w sarahild like to consult with theradiologist who provided this interpretation, please contact Donna Burnett M.D. at [phone]. If this radiologist is unavailable, youwillbe directed to another radiol ogist to assist. If you are a patient with a question regarding this report, pleasecontactyour referring physician directly. Professional Interpretation Provided By: [employer], Phone ,Fa x [phone] These documents contain legally protected and confidential [...] on 02/02/121713 S ign by: Mario MANN,Donna 00-Hbq-267668:16 DEXA BONE DENSITY STUDY (HP) Radiology Report [...] Coronel M.D.January 20, 2012 at 2:43:46 PM [id number] Signed KERA/KERA If you ar e the [...] 01/20/12 1447 Sign by: David Coronel MD 07-Mmh-573633:15 BILAT SCRN DIGITAL & CAD Radiology Report [...] Coronel M.D.January 20, 2012 at 1:20:11 PM [id number] Signed KERA/KERA If you are the referring physician and would like to consult with theradiologist who provided this interpretation, please contact Yasmany Parnell at . If this radiologist is unavailable,youwill be directed to another radiologist to assist. If you are a patient with a question regarding this report, pleasecontactyour referring physician directly. Professional Interpretation Provided By: [employer], Phone , These documents contain legally protected [...] 01/20/12 1324 Sign by: David Coronel MD 1-Cxo-006581:56 PELVIC (NON ) Radiology Report See Note [...] Vuong M.D.January 10, 2012 at 8:39:09 PM [id number] Signed JOHNNY/JOHNNY If you are the referring physician and would like to consult with theradiologist who provided this inte rpretation, please contact Radha Vuong M.D. at [phone]. If this radiologist is unavailable, you will bedirected to another radiologist to assist. If you are a patient with a question regarding this r eport, pleasecontactyour referring physician directly. Professional Interpretation Provided By: [employer], Phone , PROCEDURE: ULTRASOUND OF THE FEMALE [...] Vuong M.D.January 10, 2012 at 8:40:07 PM [id number] Signed JOHNNY/JOHNNY If you are the referring physician and would like to consult with theradiologist who provided this interpretation, please contact Radha Vuong M.D. at [phone]. If this radiologist is unavailable, you will bedirected to another radiologist to assist. If you are a patient with a question regarding this report, pleasecontactyour referring ph ysician directly. Professional Interpretation Provided By: [employer], Phone , These documents contain legally protected [...] Dictated on 01/10/12 1309 by Nahum VUONG MDhollywood presbyterian [facility] ribed on 01/11/12 1113 by ITS IMPORTSign by RADHA VUONG MD on 01/11/12 1114 Sign by: RADHA VUONG MD :35 MICROALBUMIN: CREATININE RATIO Comments: PATIENT WAS FASTINGPERFORMED BY: Food52lin6370 [facility] [id number] (10849) AND (77744) Microalb/Creat Ratio 829.4 {mg/g_creat} (Abnormal) Range: 0.0-30.0 Microalbumin, Urine 437.1 ug/mL (Abnormal) Range: 0.0-17.0 Creatinine, Urine 52.7 mg/dL (Normal) Range: 15.0-278.0 :35 CBC WITH MANUAL DIFF Comments: PATIENT WAS FASTINGPERFORMED BY: [employer] SADeborah Heart and Lung CenterXkmafv5113 [facility] [id number] Information: [id number] (02783) Immature Grans (Abs) 0.0 {x10E3/uL} (Normal) Range: [...] 3.77-5.28 WBC 3.7 {x10E3/uL} (Abnormal) Range: 4.0-10.5 34-Pth-71678:35 METABOLIC PANEL, COMPREHENSIVE Comments: PATIENT WAS FASTINGPERFORMED BY: LabCoDeborah Heart and Lung CenterPzzitv2535 [facility] [id number] (81590) ALT (SGPT) 15 [iU]/L (Normal) Range: 0-32 [...] mg/dL (Abnormal) Range: 65-99 :35 LIPID PANEL (94303) Comments: PATIENT WAS FASTINGPERFORMED BY: DasientFormerly [facility] [id number] LDL/HDL Ratio 0.9 {ratio_units} (Normal) Range: 0.0-3.2 LDL Cholesterol Calc 72 mg/dL (Normal) Range: 0-99 HDL Cholesterol 83 mg/dL (Normal) Comments: According to ATP-III Guidelines, HDL-C >59 mg/dL is considered anegative risk factor for CHD. VLDL Cholesterol Cesar 18 mg/dL (Normal) Range: 5-40 Triglycerides 90 mg/dL (Normal) Range: 0-149 Cholesterol, Total 173 mg/dL (Normal) Range: 100-199 :15 HgA1C , Office (86430) HgA1C , Office 6.2 % (Normal) Range: 4.6 - 7.1 :30 CBC WITH MANUAL DIFF Comments: PATIENT WAS FASTINGPERFORMED BY: [facility]Former[facility] [id number] Information: [id number] (73641) Immature Grans (Abs) 0.0 {x10E3/uL} (Normal) Range: [...] 3.77-5.28 WBC 4.2 {x10E3/uL} (Normal) Range: 4.0-10.5 74-Kku-28132:30 METABOLIC PANEL, COMPREHENSIVE Comments: PATIENT WAS FASTINGPERFORMED BY: LabCoDeborah Heart and Lung CenterBmqrhl3570 [facility] [id number] (44645) ALT (SGPT) 19 [iU]/L (Normal) Range: 0-40 [...] mg/dL (Abnormal) Range: 65-99 :30 LIPID PANEL (07803) Comments: PATIENT WAS FASTINGPERFORMED BY: LabCoDeborah Heart and Lung CenterOgrwhi8925 [facility] [id number] LDL/HDL Ratio 0.9 {ratio_units} (Normal) Range: 0.0-3.2 [...] note reference interval change :48 Rapid Flu (64345 x 2) Influenza A Ag negative (Normal) [...] redmond M.D.November 05, 2011 at 3:25:08 PM [id number] Signed GP/GP If you are the referring physician and would like to consult with theradiologist who provided this interpretation, please contact Yasmany Pond at [phone]. If this radiologist is unavailable, youwill be directed to another radiologist to assist. If you are a patient with a question regarding this report, ple [facility]contactyour referring physician directly. Professional Interpretation Provided By: [employer], Phone , These documents contain legally protected [...] redmond M.D.November 05, 2011 at 3:25:08 PM [id number] Signed GP/GP If you are the referring physician and would like to consult with theradiologist who provided this interpretation, please contact Yasmany Pond at [phone]. If this radiologist is unavailable, youwill be directed to another radiologist to assist. If you are a patient with a question regarding this report, ple asecontactyour referring physician directly. Professional Interpretation Provided By: [employer], Phone , These documents contain legally protected [...] 11/05/11 1552 Sign by: Misael Hebert MD 42-Bpp-901341:20 METABOLIC PANEL, Comments: PATIENT WAS FASTINGPERFORMED BY: LabCoDeborah Heart and Lung CenterRzzqkn9320 [facility] [id number] Information: [id number],2ND ORDER NO DRAW F [facility] (36235) ALT (SGPT) 31 [iU]/L (Normal) Range: 0-40 [...] Creatinine Clearance Comments: PATIENT WAS FASTINGPERFORMED BY: RainBird Technologies LtdAscension Borgess [facility] Hospital6370 [facility] [id number] Information: 10/30@6AM 10/31@730AM Creatinine Clearance 58 mL/min [...] Qn, 24-Hr Comments: PATIENT WAS FASTINGPERFORMED BY: SeatIDDeborah Heart and Lung CenterJijczl5649 [facility] [id number] Urine Prot,24hr calculated 1023.8 {mg/24_hr} (Abnormal) Range: 30.0-150.0 Protein,Total,Urine 52.5 mg/dL (Abnormal) Range: 0.0-15.0 :04 HgA1C , Office (92244) HgA1C , Office 6.1 % (Normal) Range: [...] regarding this repor t, please call our [id number] line @ Dictated on 07/27/11 1040 by GAYE PEREZ MD RTranscribed on 07/28/11 122 by ITS IMPORTSign by GAYE PEREZ MD on 07/28/111224 Sign by: GAYE PEREZ MD :54 Vitamin D Hydroxy (59002) Comments: PATIENT WAS FASTINGPERFORMED BY: [employer]6370 Snowflake Technologiesin [place] [id number] Vitamin D, 25-Hydroxy 48.8 ng/mL (Normal) Range: 30.0-100.0 Comments: Vitamin D deficiency has been defined by the [place] of[place]icine and an Endocrine Society practice guideline as alevel of serum 25-OH vitamin D less than 20 ng/mL (1,2).The Endocrine Society went on to further define vitamin Dinsufficiency as a level between 21 and 29 ng/mL (2).1. IOM ([place] of Medicine). 2010. Dietary reference intakes for calcium and D. [place]: The National Academies Press.2. Mira MF, Rosette LOPEZ, Tommy SWAIN, et al. Evaluation, treatment, and prevention of vitamin D deficiency: an Endocrine Society clinical practice guideline. JCEM. 2010; 96(7):1911-30. :54 LIPID PANEL (23518) Comments: PATIENT WAS FASTINGPERFORMED BY: [employer]6370 Snowflake TechnologiesFormerly [facility] [id number] LDL/HDL Ratio 1.0 {ratio_units} (Normal) Range: 0.0-3.2 [...] MANUAL DIFF Comments: PATIENT WAS FASTINGPERFORMED BY: [employer] Noauhc5018 [employer]flake TechnologiesFormerly [facility] [id number] Information: ADD [id number] AND DRAW FEE 99 6748 (41242) Immature Grans (Abs) 0.0 {x10E3/uL} (Normal) Range: [...] 3.77-5.28 WBC 4.3 {x10E3/uL} (Normal) Range: 4.0-10.5 36-Fpz-99518:54 METABOLIC PANEL, COMPREHENSIVE Comments: PATIENT WAS FASTINGPERFORMED BY: LabCoDeborah Heart and Lung CenterZsmyyr8425 [facility] [id number] (55987) ALT (SGPT) 48 [iU]/L (Abnormal) Range: 0-40 [...] (Abnormal) Range: 65-99 :18 HgA1C , Office (75311) HgA1C , Office 6.1 % (Normal) Range: 4.6 - 7.1 :18 Blood Glucose , Office (58538) Blood Glucose , Office 103 (Normal) 81-Qny-56958:00 ABDOMEN WITH AND W/O CONTRAST Radiology Report [...] radiologist regarding this report, please call our [id number] line @ Dictated on 03/18/11 1715 by Keaton MANN,Sergeranscribed on 03/22/11 1401 by ITS IMPORTSign by Jeanette Hill MD on 03/22/11 1402 Sign by: Jeanette Pugh MD 02-Yzn-952206:29 SERUM CRE & GFR CREAT,SERUM 1.1 mg/dL (Abnormal) Range: 0.6-1.0 60-Xhk-27899:00 BRAIN W/WO CONTRAST Radiology Report See Note [...] seen in the right frontal white matter copying machine repairer ior to themasswithout interval change. The cortical [...] 03/02/11 173 Sign by: Donna Martin MD 99-Mdo-05645:00 UPPER EXT. JOINT ONLY(ROUTINE) Radiology Report See [...] on 03/04/11 1035 Sign by: Ankur Duncan 61-Xei-348388:08 SHOULDER,MIN 2 VIEWS Radiology Report See Note [...] 02/01/11 1021 Sign by: ALEJANDRO DRUMMOND DO 86-Gij-654111:57 SINUS/FACIAL BONE Radiology Report See Note (Normal) [...] 01/19/11 1448 Sign by: Misael Hebert MD 56-Uoy-73882:00 BRAIN W/WO CONTRAST Radiology Report See Note [...] addition, there is a small region of gvrmyggocN6vglguybvnk along the anterior margin of the mass, [...] on 01/19/111650 Sign by: GAYE PEREZ MD 84-Qed-77923:00 BRAIN/HEAD W/WO CONTRAST Radiology Report See Note [...] 01/19/11 1447 Sign by: Misael Hebert MD 10-Mrg-049169:08 BILAT SCRN DIGITAL & CAD Radiology Report [...] CREATININE RATIO Comments: PATIENT NOT FASTINGPERFORMED BY: LabCoDeborah Heart and Lung CenterXrmuud9520 [facility] [id number] (53564) AND (89441) Microalb/Creat Ratio 1028.4 {mg/g_creat} (Abnormal) Range: 0.0-30.0 Microalbumin, Urine 1341.0 ug/mL (Abnormal) Range: 0.0-17.0 Creatinine, Urine 130.4 mg/dL (Normal) Range: 15.0-278.0 :20 CBC WITH MANUAL DIFF (86881) Comments: PATIENT NOT FASTINGPERFORMED BY: [facility] Cohxlf7971 [facility] [id number] Immature Grans (Abs) 0.0 {x10E3/uL} (Normal) Range: [...] 3.80-5.10 WBC 4.1 {x10E3/uL} (Normal) Range: 4.0-10.5 7-Mar-19770:20 LIPID PANEL (32091) Comments: PATIENT NOT FASTINGPERFORMED BY: SeatIDDeborah Heart and Lung CenterSxqxcl2193 [facility] [id number] LDL/HDL Ratio 0.9 {ratio_units} (Normal) Range: 0.0-3.2 [...] PANEL, COMPREHENSIVE Comments: PATIENT NOT FASTINGPERFORMED BY: SeatID Bthrvo9903 [facility] [id number] (37269) ALT (SGPT) 28 [iU]/L (Normal) Range: 0-40 [...] (Abnormal) Range: 65-99 :39 HgA1C , Office (80925) HgA1C , Office 6.5 % (Normal) Range: 4.6 - 7.1 :39 Blood Glucose , Office (30929) Blood Glucose , Office 128 (Normal) :19 CBC With Differential/Platelet Comments: PATIENT WAS FASTINGPERFORMED BY: [facility] Hjupfo0451 [facility] [id number] Immature Grans (Abs) 0.0 {x10E3/uL} (Normal) Range: [...] 3.80-5.10 WBC 5.6 {x10E3/uL} (Normal) Range: 4.0-10.5 2-Uqk-369418:19 Comp. Metabolic Panel (14) Comments: PATIENT WAS FASTINGPERFORMED BY: LabCo Poacqo8744 [facility] [id number]; appt 01/11/11 ALT (SGPT) 18 [iU]/L (Normal) [...] Glucose, Serum 113 mg/dL (Abnormal) Range: 65-99 0-Eth-981242:19 Lipid Panel With LDL/HDL Comments: PATIENT WAS FASTINGPERFORMED BY: [employer]70 [facility] [id number] Ratio LDL/HDL Ratio 1.0 {ratio_units} Range: 0.0-3.2 [...] 0.800 {uIU/mL} Comments: PATIENT WAS FASTINGPERFORMED BY: [employer]6370 [place] [facility] [id number] 2:19 (Normal) Range: 0.450-4.500 Vitamin D, 25-Hydroxy 44.0 ng/mL (Normal) Comments: PATIENT WAS FASTINGPERFORMED BY: [employer]6370 [facility] [id number] 2:19 Range: 32.0-100.0 Comments: Effective February 22, 2011 Vitamin D, 25-Hydroxy reference intervals will be changing to 30-100. .Recent studies consider the lower li sandra of 32.0 ng/mL to be athreshold for optimal health.Otf HAYES. J Nutr. 2004;135(2):317-22. :54 HgA1C , Office (41460) HgA1C , Office 6.6 % (Normal) Range: 4.6 - 7.1 :54 Blood Glucose , Office (78155) Blood Glucose , Office 134 (Normal) 9-Wev-177589:40 Creatinine Clearance Comments: PERFORMED BY: SeatID Fbicpb3263 ElectroJetFormerly [facility], [facility] [id number] Information: 10/07@7AM 10/08@3AM Creatinine Clearance 56 mL/min [...] Protein Total, Qn, 24-Hr Comments: PERFORMED BY: [employer]6370 Snowflake TechnologiesFormerly [facility] [id number] Urine Prot,24hr calculated 610.5 {mg/24_hr} (Abnormal) Range: 30.0-150.0 Protein,Total,Urine 40.7 mg/dL (Abnormal) Range: 0.0-15.0 :46 Vitamin D Hydroxy (76902) Comments: PATIENT WAS FASTINGPERFORMED BY: SeatID Vuvwod2166 [place] MindlikesFormerly [facility], [facility] [id number] Vitamin D, 25-Hydroxy 36.5 ng/mL (Normal) Range: 32.0-100.0 Comments: Recent studies consider the lower limit of 32.0 ng/mL to be athreshold for optimal health.Otf HAYES. J Nutr. 2004;135(2):317-22. :46 METABOLIC PANEL, COMPREHENSIVE Comments: PATIENT WAS FASTINGPERFORMED BY: [employer]70 [facility] [id number] (55402) ALT (SGPT) 34 [iU]/L (Normal) Range: 0-40 [...] Glucose, Serum 116 mg/dL (Abnormal) Range: 65-99 9-Jev-270880:46 LIPID PANEL (18920) Comments: PATIENT WAS FASTINGPERFORMED BY: LabCoDeborah Heart and Lung CenterLvjlpe1720 [facility] [id number] LDL Cholesterol Calc 85 mg/dL (Normal) Range: 0-99 LDL/HDL Ratio 1.2 {ratio_units} (Normal) Range: 0.0-3.2 VLDL Cholesterol Cesar 28 mg/dL (Normal) Range: 5-40 HDL Cholesterol 69 mg/dL (Normal) Comments: According to ATP-III Guidelines, HDL-C >59 mg/dL is considered anegative risk factor for CHD. Cholesterol, Total 182 mg/dL (Normal) Range: 100-199 Triglycerides 141 mg/dL (Normal) Range: 0-149 8-Sjt-603449:46 CBC WITH MANUAL DIFF Comments: PATIENT WAS FASTINGPERFORMED BY: LabCoDeborah Heart and Lung CenterOmnftt8338 [facility] [id number] Information: [id number]; appt 10/12/10 (29710) Immature Grans (Abs) 0.0 {x10E3/uL} (Normal) Range: [...] 3.80-5.10 WBC 5.5 {x10E3/uL} (Normal) Range: 4.0-10.5 2-Vaw-024716:07 HgA1C , Office (16150) HgA1C , Office 6.6 % (Normal) Range: 4.6 - 7.1 :07 Blood Glucose , Office (06586) Blood Glucose , Office 114 (Normal) 38-Jbm-911285:00 Creatinine Clearance Comments: PERFORMED BY: SeatIDDeborah Heart and Lung CenterBhdwgc8039 [facility] [id number] Information: 12/31@8AM 01/01@4AM Creatinine Clearance 48 mL/min [...] Creatinine, Serum 1.20 mg/dL (Abnormal) Range: 0.57-1.00 97-Fmy-978570:00 Protein Total, Qn, 24-Hr Comments: PERFORMED BY: RainBird Technologies LtdAscension Borgess Alle[facility] Hospital6370 [facility] [id number] Urine Prot,24hr calculated 1070.6 {mg/24_hr} (Abnormal) Range: 30.0-150.0 Protein,Total,Urine 79.3 mg/dL (Abnormal) Range: 0.0-15.0 42-Eem-748907:48 BILAT SCRN DIGITAL & CAD Radiology Report See Note (Normal) Comments: Exam Number: [id number] MAMMOGRAPHY - BILATERAL SCREENING INDICATION:Routine annual screening [...] of attaching a ResultCode to this exam.ADDENDUM: [id number] HPBI/MDS Reported By: MISAEL HEBERT 01-Elk-910361:48 DEXA BONE DENSITY STUDY (HP) Radiology Report See Note (Normal) Comments: Exam Number: [id number] CLINICAL:This is a 69-year-old female patient with postmenopausal screening. EXAMINATION:DUAL ENERGY X-RAY ABSORPTIOMETRY / DEXA. TECHNIQUE:Bone Density Measurements (BMD) of lumb ar spine and bilateral hipswere obtained using a Deltagen scanner.. COMPARISON:None. FINDINGS: Lumbar Spine (L1-L4): g/cm2 [...] Osteoporosis Foundation http://www.nof.org Reported By: MISAEL HEBERT 75-Fsd-282774:29 HgA1C , Office (60551) HgA1C , Office 6.5 % (Normal) Range: 4.6 - 7.1 63-Fnv-503478:29 Blood Glucose , Office (13590) Blood Glucose , Office 109 (Normal) 54-Idn-05673:05 CBC With Differential/Platelet Comments: PATIENT WAS FASTINGPERFORMED BY: LabCoDeborah Heart and Lung CenterCdfkpr4064 [facility] [id number] Immature Grans (Abs) 0.0 {x10E3/uL} (Normal) Range: [...] 3.80-5.10 WBC 3.9 {x10E3/uL} (Abnormal) Range: 4.0-10.5 29-Mog-69551:05 Comp. Metabolic Panel (14) Comments: PATIENT WAS FASTINGPERFORMED BY: LabCo Zcnuae1430 [facility] [id number] ALT (SGPT) 20 [iU]/L (Normal) Range: 0-40 [...] With LDL/HDL Comments: PATIENT WAS FASTINGPERFORMED BY: [employer]70 Snowflake TechnologiesFormerly [facility] [id number] Ratio HDL Cholesterol 54 mg/dL (Normal) Comments: [...] ng/mL (Normal) Comments: PATIENT WAS FASTINGPERFORMED BY: [employer]6370 [employer]Formerly [facility], [facility] [id number] :05 Range: 32.0-100.0 Comments: Recent studies consider the lower limit of 32.0 ng/mL to be athreshold for optimal health.Otf HAYES. J Nutr. 2004;135(2):317-22. :41 SPLEEN (HP) Radiology Report See Note (Normal) Comments: Exam Number: [id number] ULTRASOUND OF THE SPLEEN A goal directed [...] Protein, 0.5 mg/L (Normal) Comments: PERFORMED BY: [employer]70 ElectroJetNovant Health Brunswick Medical Centerin [place] [id number] 10:54 Quant Range: 0.0-4.9 17-Jun-2009 Hemoglobin A1c 6.3 % (Abnormal) Comments: PERFORMED BY: [employer]70 WilloughbyAccess PointNovant Health Brunswick Medical Centerin [place] [id number] 10:54 Range: 4.8-5.6 Comments: Increased risk for diabetes: 5.7 - 6.4Diabetes: >6.4Glycemic control for adults with diabetes: <7.0.Please note reference interval change 17-Jun-2009 Sedimentation 4 mm/h (Normal) Comments: PERFORMED BY: [employer] [place] [facility] [id number] 10:54 Rate-Westergren Range: 0-30 17-Jun-2009 Vitamin B12 1372 pg/mL Comments: PERFORMED BY: Squid Facil [place] [facility] [id number] 10:54 (Abnormal) Range: 211-911 Comments: Effective July 14, 2009, Vitamin B12 will bechanging to the [place] ECLIA methodology. Thereference interval will be changing to:211 - 946 pg/mL 17-Jun-2009 Vitamin D, 25-Hydroxy 37.7 ng/mL Comments: PERFORMED BY: [employer] Brokuk2484 [facility] [id number] 10:54 (Normal) Range: 32.0-100.0 Comments: Recent studies consider the lower limit of 32.0 ng/mL to be athreshold for optimal health.Otf HAYES. J Nutr. 2004;135(2):317-22. 59-Xwk-414435:34 Vitamin D Hydroxy Comments: PATIENT NOT FASTINGPERFORMED BY: SeatID Jtrqbg2373 [facility] [id number] Information: [id number],2ND ORDER NO DRAW Constance EE (21726) Vitamin D, 25-Hydroxy 48.5 ng/mL (Normal) Range: 30.0-100.0 Comments: Vitamin D deficiency has been defined by the [place] of[place]icine and an Endocrine Society practice guideline as alevel of serum 25-OH vitamin D less than 20 ng/mL (1,2).The Endocrine Society went on to further define vitamin Dinsufficiency as a level between 21 and 29 ng/mL (2).1. IOM ([place] of Medicine). 2010. Dietary reference intakes for calcium and D. [place]: The National AcademDream Dinners Press.2. Mira MF, Rosette LOPEZ, Tommy SWAIN, et al. Evaluation, treatment, and prevention of vitamin D deficiency: an Endocrine Society clinical practice guideline. JCEM. 2010; 96(7):1911-30. :50 HgA1C , Office (76575) HgA1C , Office 6.7 % (Normal) Range: 4.6 - 7.1 :50 Blood Glucose , Office (98959) Blood Glucose , Office 117 (Normal) 05-Fhg-503554:12 CBC With Differential/Platelet Comments: PERFORMED BY: LabFrancis Ville 8997670 [facility] [id number] Information: 06/10@6AM3/10@330AM Hematology Comments: Note: (Normal) Comments: [...] 3.80-5.10 WBC 3.6 {x10E3/uL} (Abnormal) Range: 4.0-10.5 26-Mfj-193467:12 Comp. Metabolic Panel (14) Comments: PERFORMED BY: [facility]6370 [facility] [id number] Alkaline Phosphatase, S 68 [iU]/L (Normal) Range: [...] Glucose, Serum 124 mg/dL (Abnormal) Range: 65-99 57-Eio-765269:12 Creatinine Clearance Comments: PERFORMED BY: [facility] [id number] Creatinine Clearance 49 mL/min (Abnormal) Range: 88-128 Comments: The above range is based on 1.73 square meter average body surfacearea. Creatinine, Ur 24hr 800.0 {mg/24_hr} (Normal) Range: 800.0-1800.0 Creatinine, Urine 40.0 mg/dL (Normal) Range: 15.0-278.0 10-Fvs-813291:12 Lipid Panel With LDL/HDL Comments: PERFORMED BY: Squid Facil [facility] [id number] Ratio HDL Cholesterol 61 mg/dL (Normal) Comments: According to ATP-III Guidelines, HDL-C >59 mg/dL is considered anegative risk factor for CHD. LDL Cholesterol Calc 74 mg/dL (Normal) Range: 0-99 LDL/HDL Ratio 1.2 {ratio_units} (Normal) Range: 0.0-3.2 VLDL Cholesterol Cesar 17 mg/dL (Normal) Range: 5-40 Cholesterol, Total 152 mg/dL (Normal) Range: 100-199 Triglycerides 87 mg/dL (Normal) Range: 0-149 85-Pew-325009:12 Protein Total, Qn, 24-Hr Comments: PERFORMED BY: [facility] [id number] Urine Prot,24hr calculated 1172.0 {mg/24_hr} Range: 30.0-150.0 (Abnormal) Protein,Total,Urine 58.6 mg/dL (Abnormal) Range: 0.0-15.0 TSH 1.280 {uIU/mL} Comments: PERFORMED BY: LabCoDeborah Heart and Lung CenterKtvsix1867 [facility] [id number] 1:12 (Normal) Range: 0.450-4.500 :58 HgA1C , Office (43712) HgA1C , Office 6.0 % (Normal) Range: 4.6 - 7.1 :58 Blood Glucose , Office (56158) Blood Glucose , Office 113 (Normal) :03 CBC With Differential/Platelet Comments: PATIENT WAS FASTINGPERFORMED BY: LabCoDeborah Heart and Lung CenterTgjugk7513 [facility] [id number] Baso (Absolute) 0.0 {x10E3/uL} (Normal) Range: 0.0-0.2 [...] 11.7-15.0 WBC 3.2 {x10E3/uL} (Abnormal) Range: 4.0-10.5 9-Muj-432367:03 Comp. Metabolic Panel (14) Comments: PATIENT WAS FASTINGPERFORMED BY: LabCoDeborah Heart and Lung CenterHaehcx6203 [facility] [id number] A/G Ratio 2.0 (Normal) Range: 1.1-2.5 Albumin, [...] Glucose, Serum 116 mg/dL (Abnormal) Range: 65-99 9-Dsc-076582:03 Lipid Panel With LDL/HDL Comments: PATIENT WAS FASTINGPERFORMED BY: EVE [employer]70 [facility] [id number] Ratio Cholesterol, Total 167 mg/dL (Normal) Range: [...] ng/mL (Normal) Comments: PATIENT WAS FASTINGPERFORMED BY: Squid Facil [facility] [id number] :03 Range: 32.0-100.0 Comments: Recent studies consider the lower limit of 32.0 ng/mL to be athreshold for optimal health.Oft HAYES. J Nutr. 2004;135(2):317-22. 41-Vde-842242:32 Urinalysis, Office (07755) UA - BILIRUBIN Negative (Normal) UA - BLOOD Hemolyzed Trace (Normal) UA - GLUCOSE Negative (Normal) UA - KETONES Negative mg/dL (Normal) UA - LEUKOCYTE ESTERASE Negative (Normal) UA - NITRITE Negative (Normal) UA - PH 6.5 (Normal) UA - PROTEIN 300 mg/dL (Normal) UA - SPECIFIC GRAVITY 1.020 (Normal) URINE UROBILINGN JATINDER TIMED 2 mg/dL (Normal) 1-Ibz-061971:19 URINE SETH CULTURE-JATINDER COL Comments: PATIENT NOT FASTINGClinical Information: SRC:UR ADD [id number] PERFORMED BY: [employer]enoplex70 [facility] [id number] COUNT (56720) Result 1 ECV (Normal) Comments: Escherichia coli, [...] report (Normal) Culture,Comprehensiv e 09-Jan-20098:17 Urinalysis, Office (74193) UA - BILIRUBIN Negative (Normal) UA - BLOOD Hemolyzed Large (Normal) UA - GLUCOSE Negative (Normal) UA - KETONES Negative mg/dL (Normal) UA - LEUKOCYTE ESTERASE Moderate (Normal) UA - NITRITE Negative (Normal) UA - PH 7.0 (Normal) UA - PROTEIN 300 mg/dL (Normal) UA - SPECIFIC GRAVITY 1.020 (Normal) URINE UROBILINGN JATINDER TIMED 2 mg/dL (Normal) 4-Kyw-572591:05 Comp. Metabolic Panel (14) Comments: PATIENT WAS FASTINGPERFORMED BY: LabCo Ygbcki4896 [facility] [id number] A/G Ratio 1.7 (Normal) Range: 1.1-2.5 Albumin, [...] Panel (7) Comments: PATIENT WAS FASTINGPERFORMED BY: [facility] LabsSaint [facility] [id number] Bilirubin, Direct 0.12 mg/dL (Normal) Range: 0.00-0.40 :05 Lipid Panel With LDL/HDL Comments: PATIENT WAS FASTINGPERFORMED BY: Squid Facil [facility] [id number] Ratio Cholesterol, Total 170 mg/dL (Normal) Range: [...] mg/dL (Normal) Comments: PATIENT WAS FASTINGPERFORMED BY: [employer]6370 [facility] [id number] :05 Range: 2.5-4.5 PTH, Intact 19 pg/mL (Normal) Comments: PATIENT WAS FASTINGPERFORMED BY: LabCo Xupezs5641 [facility] [id number] :05 Range: 15-65 Vitamin D, 25-Hydroxy 38.9 ng/mL (Normal) Comments: PATIENT WAS FASTINGPERFORMED BY: [facility]Haw[facility] Desugn8327 [facility] [id number] :05 Range: 32.0-100.0 Comments: Recent studies consider the lower limit of 32.0 ng/mL to be athreshold for optimal health.Otf HAYES. J Nutr. 2004;135(2):317-22. :40 HgA1C , Office (44922) HgA1C , Office 6.0 % (Normal) Range: 4.6 - 7.1 :40 Blood Glucose , Office (95274) Blood Glucose , Office 109 (Normal) :42 CBC With Differential/Platelet Comments: PATIENT WAS FASTINGPERFORMED BY: LabAsc[facility]6370 [facility] [id number] Baso (Absolute) 0.0 {x10E3/uL} (Normal) Range: 0.0-0.2 [...] 11.7-15.0 WBC 4.2 {x10E3/uL} (Normal) Range: 4.0-10.5 05-Xvo-482504:42 Comp. Metabolic Panel (14) Comments: PATIENT WAS FASTINGPERFORMED BY: LabCoDeborah Heart and Lung CenterSkovtg2483 [facility] [id number] A/G Ratio 1.6 (Normal) Range: 1.1-2.5 Albumin, [...] Sodium, Serum 140 mmol/L (Normal) Range: 135-145 2-Dzz-952906:09 FECAL OCCULT HGB ASSAY, QUAL, 1-3 SIMULTANEOUS DETERMINATIONS (91571) FECAL OCCULT HGB ASSAY, QUAL, 1-3 SIMULTANEOU neg (Normal) :42 Microscopic Examination Comments: PATIENT WAS FASTINGPERFORMED BY: DasientFormerly [facility] [id number] Bacteria None seen (Normal) Cast Type Hyaline casts (Normal) Casts Present {/lpf} (Abnormal) Epithelial Cells (non renal) 0-10 {/hpf} (Normal) Range: 0 - 10 Mucus Threads Present (Normal) RBC 0-3 {/hpf} (Normal) Range: 0 - 3 WBC 0-5 {/hpf} (Normal) Range: 0 - 5 :42 URINALYSIS W/O MICRO (28542) Comments: PATIENT WAS FASTINGPERFORMED BY: DasientFormerly [facility] [id number] Appearance Clear (Normal) Bilirubin Negative (Normal) Glucose Negative (Normal) Ketones Negative (Normal) Microscopic Examination See below: (Normal) Nitrite, Urine Negative (Normal) Occult Blood Negative (Normal) pH 5.0 (Normal) Range: 5.0-7.5 Protein 1+ (Abnormal) Specific [place] 1.013 (Normal) Range: 1.005-1.030 Urine-Color Yellow (Normal) Urobilinogen,Semi-Qn 0.2 mg/dL (Normal) Range: 0.0-1.9 WBC Esterase 1+ (Abnormal) :42 MICROALBUMIN: CREATININE RATIO Comments: PATIENT WAS FASTINGPERFORMED BY: DasientFormerly [facility] [id number] (43403) AND (77328) Creatinine, Urine 76.1 mg/dL (Normal) Range: 15.0-278.0 Microalb/Creat Ratio 292.1 {ug/mg_creat} (Abnormal) Range: 0.0-30.0 Microalbumin, Urine 222.3 ug/mL (Abnormal) Range: 0.0-17.0 :42 CBC WITH MANUAL DIFF (60423) Comments: PATIENT WAS FASTINGClinical Information: ADD DRAW FEE [id number] ADD J [id number] PERFORMED BY: EVE [employer]70 [facility] [id number] Baso (Absolute) 0.0 {x10E3/uL} (Normal) Range: 0.0-0.2 [...] PANEL, COMPREHENSIVE Comments: PATIENT WAS FASTINGPERFORMED BY: Cenoplex70 [facility] [id number] (20402) A/G Ratio 1.8 (Normal) Range: 1.1-2.5 Albumin, [...] (Normal) Range: 135-145 :23 HgA1C , Office (08790) HgA1C , Office 6.0 % (Normal) Range: 4.6 - 7.1 6-Ufh-914690:23 Blood Glucose , Office (90766) Blood Glucose , Office 103 (Normal) :38 CBC WITH MANUAL DIFF (39042) Comments: PATIENT WAS FASTINGClinical Information: ADD DRAW FEE [id number] ADD J [id number] PERFORMED BY: LabCoDeborah Heart and Lung CenterMzhyaz3492 [facility] [id number] Baso (Absolute) 0.0 {x10E3/uL} (Normal) Range: 0.0-0.2 [...] 11.7-15.0 WBC 4.0 {x10E3/uL} (Normal) Range: 4.0-10.5 59-Rjq-592092:38 METABOLIC PANEL, COMPREHENSIVE Comments: PATIENT WAS FASTINGPERFORMED BY: LabCoDeborah Heart and Lung CenterRtwtuh7210 [facility] [id number] (98706) A/G Ratio 1.8 (Normal) Range: 1.1-2.5 Albumin, [...] Sodium, Serum 142 mmol/L (Normal) Range: 135-145 39-Hry-239006:38 HEPATIC FUNCTION PANEL Comments: PATIENT WAS FASTINGPERFORMED BY: [employer] Lmwlmu1758 [facility] [id number] (32610) Bilirubin, Direct 0.08 mg/dL (Normal) Range: 0.00-0.40 62-Pfw-181831:38 LIPID PANEL (56990) Comments: PATIENT WAS FASTINGPERFORMED BY: [employer] Ghovnn1482 [facility] [id number] Cholesterol, Total 200 mg/dL (Abnormal) Range: 100-199 [...] (Normal) Range: 5-40 :36 HgA1C , Office (73019) HgA1C , Office 6.1 % (Normal) Range: 4.6 - 7.1 :36 Blood Glucose , Office (28013) Blood Glucose , Office 98 (Normal) :33 CBC With Differential/Platelet Comments: PATIENT WAS FASTINGClinical Information: SRC:UR PERFORMED BY: EVE [facility]6[address] [facility] [id number] Baso (Absolute) 0.0 {x10E3/uL} (Normal) Range: 0.0-0.2 [...] 11.7-15.0 WBC 4.8 {x10E3/uL} (Normal) Range: 4.0-10.5 04-Ndn-695295:33 Comp. Metabolic Panel (14) Comments: PATIENT WAS FASTINGPERFORMED BY: LabCoDeborah Heart and Lung CenterIfatww4653 [facility] [id number] A/G Ratio 1.6 (Normal) Range: 1.1-2.5 Albumin, [...] With LDL/HDL Comments: PATIENT WAS FASTINGPERFORMED BY: [employer]6370 [facility] [id number] Ratio Cholesterol, Total 174 mg/dL (Normal) Range: [...] Urine Culture,Comprehensive Comments: PATIENT WAS FASTINGPERFORMED BY: [employer] LabEventVue6370 [facility] [id number] Antimicrobial MIHEAD (Normal) Comments: S = Susceptible; [...] Enterococcus. (Normal) Urine Final report (Normal) Culture,Comprehensive 4-Tek-567112:10 HgA1C , Office (36735) HgA1C , Office 5.9 % (Normal) Range: [...] mL (Normal) URINE PROTEIN 20.0 mg/dL (Abnormal) 59-Tyk-521400:17 Urine Culture,Comprehensive Comments: Clinical Information: SRC:UR PERFORMED BY: [facility]6[address] [facility] [id number] Result 1 CNSNSS (Normal) Comments: Coagulase negative Staphylococcus species, not Staphylococcussaprophyticus.600 Colonies/mLSusceptibility or resistance of staphylococci to oxacillin predictssusceptibility or resistance to (a) other be hv-dmzwkeivj-gtkxuvtyozkvkvfgj such as cloxacillin and dicloxacillin, (b) combinationsof a penicillin and a beta-lactamase inhibitor, and(c) anti- staphylococcal cephalosporins. Routine testing of otherp enicillins, beta-lactam/beta-lactamase inhibitor combinations,cephems, and carbapenems is not advised by the CLSI Standards(E865-Q79, 2005). S = Susceptible; I = Intermediate; R = Resistant * P = Positive; N = Negative MICS are expressed in micrograms per mL Antibiotic RSLT#1 RSLT#2 RSLT#3 RSLT#4Ciprofloxacin RGentami kristian SLevofloxacin RNitrofurantoin SOxacillin SPenicillin RRifampin STrimethoprim/Sulfa SVancomycin S Urine Final report Culture,Comprehensi (Normal) ve :53 Metabolic Panel, Basic (41012) Comments: PATIENT NOT FASTINGClinical Information: ADD DRAW FEE [id number] ADD J [id number] PERFORMED BY: [facility] Hbnegm5981 [facility] [id number] BUN 39 mg/dL (Abnormal) Range: 5-26 BUN/Creatinine [...] (Normal) Range: 135-145 :09 HgA1C , Office (16306) HgA1C , Office 6.1 % (Normal) Range: 4.6 - 7.1 :09 Blood Glucose , Office (56555) Blood Glucose , Office 163 (Normal) :37 SPINE,LUMBAR (ROUTINE) Radiology Report See Note (Normal) Comments: Exam Number: [id number] MRI LUMBAR SPINE CLINICAL STATEMENTLow back pain [...] onboth sides. Reported By: MODESTA COPE M.D. 69-Hkq-610914:00 [facility] DIGITAL & CAD Radiology Report See Note (Normal) Comments: Exam Number: [id number] MAMMOGRAM, BILATERAL SCREENING DIGITAL AND CAD HISTORYRoutine screening. Full field digital images were obtained in mediolateral oblique andcraniocaudal projections. CAD images w ere reviewed. The current study is [facility]. A small metal marker is placed [...] mammograms werealso examined with computer-aided detection software (InteraXon, TappIn, [employer].). Reported By: DONNA OJEDA M.D. :59 DEXA BONE DENSITY STUDY () Radiology Report See Note (Normal) Comments: Exam Number: [id number] BONE DENSITOMETRY HISTORYPost menopausal. TECHNIQUE Bone densitometry [...] Report See Note (Normal) Comments: Exam Number: [id number] FIVE VIEW LUMBAR SPINE AP, lateral, both [...] By: MAIRA GARZA M.D. :19 Microalb/Creat Ratio, [facility] Comments: PATIENT NOT FASTINGPERFORMED BY: EVE LabCoDeborah Heart and Lung CenterKqomub3507 [facility] [id number] Creatinine, Urine 46.8 mg/dL (Normal) Microalb/Creat Ratio 712.8 {ug/mg_creat} (Abnormal) Range: 0.0-30.0 Microalbum.,U,Random 333.6 ug/mL (Abnormal) Range: 0.0-17.0 :13 Creatinine Clearance Comments: PATIENT NOT FASTINGClinical Information: HT-5'4'' WT-184 PERFORMED BY: [employer] Dkacim5446 [facility] [id number] Creatinine Clearance 40 mL/min (Abnormal) Range: 88-128 [...] Qn, 24-Hr Comments: PATIENT NOT FASTINGPERFORMED BY: SeatIDDeborah Heart and Lung CenterMdkcwy2737 [facility] [id number] Urine Protein,Total,Urine 49.0 mg/dL (Abnormal) Range: 0.0-15.0 Prt, 24hr calculated 833.0 {mg/24_hr} (Abnormal) Range: 30.0-150.0 35-Fah-311271:00 CBCD,SMEAR DIFF CELLS COUNTED 100 (Normal) EOS [...] D BILI 0.06 mg/dL (Normal) Range: 0.00-0.30 58-Kdc-232264:00 LIPID CHOL 175 mg/dL (Normal) Comments: <200 [...] mg/dL VLDL 12 mg/dL (Normal) Range: 5-40 40-Erz-434704:00 TSH 0.84 {uIU/mL} (Normal) Range: 0.34-4.82 Plan [...] uncertain behavior of skin Planned Observations PARATHORMONE (57929)Indication: Chronic kidney disease, stage 3 On: :59 Request Comments: fax to [phone] MICROALBUMIN: CREATININE RATIO (83954) AND (68483)Indication: Chronic kidney disease, stage 3 On: :55 Request Comments: fax to [phone] RENAL FUNCTION PANEL (87911)Indication: Chronic kidney disease, stage 3 On: :54 Request Comments: fax to [phone] MAGNESIUM (48527)Indication: Chronic kidney disease, stage 3 On: :54 Request Comments: fax to [phone] Parathyroid Hormone-related Peptide (PTH-rP) (02713)Indication: Chronic kidney disease, stage 3 On: :54 Request Comments: fax to [phone] Vitamin D Hydroxy (45147)Indication: Vitamin D deficiency On: :25 Request URINALYSIS, W/ MICRO (82594)Indication: Chronic kidney disease, stage 3 On: :25 Request LIPID PANEL (22337)Indication: Mixed hyperlipidemia On: :25 Request CBC W/AUTO DIFF WBC (66311)Indication: Chronic kidney disease, stage 3 On: : Request METABOLIC PANEL, COMPREHENSIVE (39872)Indication: Chronic kidney disease, stage 3 On: :25 Request HGB A1C (45354)Indication: Diabetes mellitus type II, controlled On: :24 Request Parathyroid Hormone-related Peptide (PTH-rP) (27114)Indication: Vitamin D deficiency On: 0-Ykw-541969:43 Request Comments: send results to Dr. Santana fax: [phone] VITAMIN D, 1, 25-DIHYDROXY (76353)Indication: Vitamin D deficiency On: 1-Vhf-809812:42 Request Comments: send results to Dr. Santana fax: [phone] Clostridium difficile Toxin A+B, EIA (84407)Indication: Chronic diarrhea On: 4-Xsn-412679:36 Request Vitamin D Hydroxy (87946)Indication: Osteopenia On: 2-Tjb-705012:20 Request CBC W/AUTO DIFF WBC (27600)Indication: Hypertension, benign On: 8-Fje-746856:16 Request CALCIFEDIOL (98788)Indication: Chronic kidney disease, stage 3 On: :04 Request Renal function Panel (31939)Indication: Chronic kidney disease, stage 3 On: :04 Request Magnesium (22473)Indication: Chronic kidney disease, stage 3 On: :04 Request MICROALBUMIN: CREATININE RATIO (06054) AND (45254)Indication: Chronic kidney disease, stage 3 On: 03-Aug-20169:04 Request Parathyroid Hormone-related Peptide (PTH-rP) (72230)Indication: Chronic kidney disease, stage 3 On: 03-Aug-20169:04 Request T4, FREE (THYROXINE) (12939)Indication: Cold feeling On: 03-Aug-20168:31 Request TSH (55848)Indication: Cold feeling On: 03-Aug-20168:31 Request PARATHORMONE (71800)Indication: Chronic kidney disease, stage 3 On: 71-Qha-52600:18 Request Comments: copy to Dr. Santana [phone] CALCIFIDIOL (21916) VIT D 25Indication: Chronic kidney disease, stage 3 On: :16 Request Comments: copy to Dr. Santana [phone] MAGNESIUM (89181)Indication: Chronic kidney disease, stage 3 On: 11-Oxw-09087:15 Request Comments: copy to Dr. Santana [phone] PROTEIN/CREAT RATIO, URINE (20169)Indication: Chronic kidney disease, stage 3 On: :15 Request Comments: copy to Dr. Sanatna [phone] LIPID PANEL (68192)Indication: Mixed hyperlipidemia On: :21 Request CBC with auto diff (94366)Indication: Diabetes mellitus type II, controlled On: 58-Syg-801506:20 Request METABOLIC PANEL, COMPREHENSIVE (14027)Indication: Diabetes mellitus type II, controlled On: 35-Dip-989093:20 Request HGB A1C (77889)Indication: Diabetes mellitus type II, controlled On: 50-Ewt-573546:10 Request Vitamin D Hydroxy (97894)Indication: Osteopenia On: :08 Request TSH (THYROID STIMULATING HORMONE) (05325)Indication: Depression On: :06 Request LIPID PANEL (69692)Indication: Other and unspecified hyperlipidemia On: 37-Gqy-090260:06 Request CBC with auto diff (89301)Indication: Diabetes mellitus type II, controlled On: 59-Cso-884869:06 Request METABOLIC PANEL, COMPREHENSIVE (48066)Indication: Diabetes mellitus type II, controlled On: 11-Dfo-479770:06 Request CREATININE CLEARANCE (77044)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 On: 1-Xjm-594228:38 Request Total Protein,24 Hour Urine (71484)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 On: 7-Tqh-644748:38 Request CBC W/AUTO DIFF WBC (66817)Indication: Diabetes mellitus type II, controlled On: 56-Nus-394116:11 Request HgA1C , Office (66959)Indication: Diabetes mellitus type II, controlled On: 71-Gii-098043:23 Request CULTURE, SPUTUM (75406)Indication: Cough On: 17-Qut-423536:47 Request HEPATIC FUNCTION PANEL (23753)Indication: Elevated LFTs On: 50-Khm-35194:24 Request CREATININE CLEARANCE (55639)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 On: 28-Twt-46004:33 Request 24 hour urine for Protein (69544)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 On: :33 Request CBC WITH MANUAL DIFF (72159)Indication: Diabetes mellitus type II, controlled On: 16-Pnk-153435:29 Request METABOLIC PANEL, COMPREHENSIVE (14162)Indication: Diabetes mellitus type II, controlled On: :29 Request LIPID PANEL (30694)Indication: Mixed hyperlipidemia On: :29 Request CREATININE CLEARANCE (07136)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 On: 7-Ryh-532272:45 Request 24 hour urine for Protein (83663)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 On: 2-Gqm-295319:45 Request CREATININE CLEARANCE (00651)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 On: 98-Ooj-445222:57 Request 24 hour urine for Protein (99583)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 On: 88-Hay-318628:57 Request METABOLIC PANEL, COMPREHENSIVE (58637)Indication: Hypertension, benign On: :32 Request LIPID PANEL (98344)Indication: Mixed hyperlipidemia On: :32 Request C-REACTIVE PROTEIN (35884)Indication: Fatigue On: :24 Request SED RATE ERYTHROCYTE (07572)Indication: Headache On: :24 Request VITAMIN B-12 (CYANOCOBALAMIN) (60292)Indication: Fatigue On: :24 Request LIPID PANEL (65674)Indication: Mixed hyperlipidemia On: :41 Request CBC WITH MANUAL DIFF (66772)Indication: Hypertension, benign On: 4-Ivu-911658:41 Request METABOLIC PANEL, COMPREHENSIVE (63321)Indication: Hypertension, benign On: 7-Tkj-667700:41 Request CREATININE CLEARANCE (57924)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 On: 7-Uql-236819:34 Request 24 hour urine for Protein (88221)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 On: 9-Mgh-143127:34 Request LIPID PANEL (80006)Indication: Mixed hyperlipidemia On: :22 Request HEPATIC FUNCTION PANEL (33073)Indication: Mixed hyperlipidemia On: :22 Request Vitamin D Hydroxy (66521)Indication: Hypercalcemia On: :22 Request PHOSPHORUS (13070)Indication: Hypercalcemia On: 3-Qua-144463:22 Request PARATHORMONE (69652)Indication: Hypercalcemia On: 7-Jes-521385:22 Request METABOLIC PANEL, COMPREHENSIVE (09009)Indication: Hypercalcemia On: 3-Vfn-395592:22 Request CBC WITH MANUAL DIFF (80554)Indication: fsgs On: :58 Request LIPID PANEL (50916)Indication: Mixed hyperlipidemia On: :58 Request METABOLIC PANEL, COMPREHENSIVE (87879)Indication: Hypertension, benign On: :58 Request Blood Glucose , Office (61670)Indication: Diabetes mellitus type II, controlled On: 9-Oql-027925:10 Request TSH (29192)Indication: Diabetes mellitus type II, controlled On: 68-Ubj-951216:51 Request METABOLIC PANEL, COMPREHENSIVE (62651)Indication: Diabetes mellitus type II, controlled On: 61-Bvb-406084:51 Request CBC WITH MANUAL DIFF (05632)Indication: Diabetes mellitus type II, controlled On: 21-Fpg-488664:51 Request MICROALBUMIN: CREATININE RATIO (62801) AND (79964)Indication: Diabetes mellitus type II, controlled On: 64-Yhg-817944:51 Request HEPATIC FUNCTION PANEL (95982)Indication: Other and unspecified hyperlipidemia On: 41-Lgn-875952:51 Request LIPID PANEL (25038)Indication: Other and unspecified hyperlipidemia On: 21-Glr-220290:51 Request HgA1C , Office (64293)Indication: Diabetes mellitus type II, controlled On: 84-Kcu-662371:37 Request Blood Glucose , Office (90926)Indication: Diabetes mellitus type II, controlled On: 90-Snj-874917:37 Request Planned Encounters Medical; [facility] 3 Month FU - On: 22-Mar-2018 11:00 [facility] Fast DO, Chaparrita A Fast DO, Chaparrita A Planned Procedures DRAIN/INJECT MAJOR JOINT OR BURSA On: 07-Feb-2018 Intent ()By: Keri Singh MD Comments: lot no [id number] exp date 2017-12-26 DRAIN/INJECT MAJOR JOINT OR BURSA On: 31-Jan-2018 Intent ()By: Keri Singh MD Comments: Lot#[id number]:1-27-74Wxonx:intra articular Site given:left knee Given By: Dr. Singh ABN signed DRAIN/INJECT MAJOR JOINT OR BURSA On: 24-Jan-2018 Intent (39772)By: Keri Singh MD Comments: Lot#[id number]: 3-17-42Rmuct:intra artciular Site given:left knee Given By: Dr. Singh ABN signed Euflexxa Echo CompleteBy: Fast DO, Chaparrita A On: 16-Dec-2017 Intent Fast DO, Chaparrita A Flu Vaccine (Quadrivalent) 19233Yp: On: 16-Dec-2017 Intent Fast DO, Chaparrita A Fast DO, Chaparrita A Comments: Lot: #[id number]: 10/01/18Site: L dltd, IMDose prefilled syringegiven by: CManccurtVIS reviewed and ABN signed Kenalog Injection, 10 mgm On: 03-Oct-2017 Intent (J3301)By: Keri Singh MD Comments: lot: [id number]: 11/20site/route: L knee Cartoid DopplerBy: Fast DO, Chaparrita A On: 12-Sep-2017 Intent Fast DO, Chaparrita A Comments: november DIGITAL TOMOSYNTHESIS OF On: 12-Sep-2017 Intent BREAST (01934)By: Fast DO Chaparrita A Comments: due november 02 Fast DO, Chaparrita A Kenalog Injection, 10 mgm On: 06-Jun-2017 Intent (J3301)By: Keri Singh MD Comments: bupivacacine 0.5% [id number] exp 09-20 kenalog 40 mg injected in. [id number] 07-21 MRI OF BRAIN WITH AND WITHOUT On: 06-Jun-2017 Intent CONTRAST (15249)By: Fast DO, Chaparrita A Fast DO, Chaparrita A ELECTROCARDIOGRAM, COMPLETE (ECG) On: 06-Jun-2017 Intent (85424)By: Fast DO, Chaparrita A Fast Comments: ekg [...] 10-May-2017 Intent 1000 CC (Special Coverage Comments: lot:[id number]:IV left anticub dose:1000ml given by:eliazar Araya, ANDREA Instructions Apply. See MCM: 2048) (J7030)By: Chaparrita Albrecht DO, DO, Debra A Radiology - Chest- PA and LatBy: On: 05-May-2017 Intent Keri Singh MD Aerosol Treatment (60120)By: On: 05-May-2017 Intent Keri Singh MD Radiology - ChestBy: Francisco MANN, On: 05-May-2017 Intent Keri Alonzo Comments: call wet read DRAIN/INJECT MAJOR JOINT OR BURSA On: 28-Feb-2017 Intent ()By: Keri Singh MD Comments: 1 cc Kenelog #[id number] Marcaine #[id number] Kenalog Injection, 10 mgm On: 28-Feb-2017 Intent (J3301)By: Keri Singh MD ELECTROCARDIOGRAM, COMPLETE (ECG) On: 10-Jan-2017 Intent (05922)By: Chaparrita Albrecht DO Comments: ekg showed normal sinus rhythym, normal axis, no acute st/t wave changes Chaparrita WOLFF Flu Vaccine (Quadrivalent) 94168Ky: On: 27-Dec-2016 Intent SHONDA Andrade DRAIN/INJECT MAJOR JOINT OR BURSA On: 20-Aug-2016 Intent ()By: Keri Singh MD DRAIN/INJECT MAJOR JOINT OR BURSA On: 13-Aug-2016 Intent ()By: SHONDA Andrade Comments: lot: [id number]:intra articular dose:2ml given by:Dr. Francisco Araya, LAB MANAGER injection #3 DOPPLER ULTRASOUND OF RIGHT CAROTID On: 10-Aug-2016 Intent ARTERY (54949)By: Chaparrita Albrecht DO Comments: end of october Chaparrita Albrecht DO DEXA SCAN AXIAL SKELETON (74913)By: On: 10-Aug-2016 Intent Chaparrita Albrecht DO, DO, Debra A Comments: end october SCREENING DIGITAL TOMOSYNTHESIS OF On: 10-Aug-2016 Intent BREAST (94334)By: Fast DO, Chaparrita A Comments: end october Fast DO, Chaparrita A DRAIN/INJECT MAJOR JOINT OR BURSA On: 06-Aug-2016 Intent ()By: Keri Singh MD DRAIN/INJECT INTERMED JOINT/BURSA On: 06-Aug-2016 Intent ()By: SHONDA Andrade Comments: lot:[id number]:left knee dose:2mlgiven by:Dr. Francisco HUMPHREY signedER, LAB MANAGER injection number 2 Venous Doppler - LeftBy: Fast DO, On: 03-Aug-2016 Intent Chaparrita A Fast DO, Chaparrita A Comments: This is set up for August 05 at 11am- spoke with Rina in cv. DRAIN/INJECT INTERMED JOINT/BURSA On: 30-Jul-2016 Intent ()By: Keri Singh MD Comments: lot:[id number]:[id number]:intra articular left knee dose: 2ml given by: Dr. Singh ABN signedER, LAB MANAGER injection #1 Radiology - Knee - LeftBy: Fast DO, On: 26-May-2016 Intent Chaparrita A Fast DO, Chaparrita A Flu Vaccine (Quadrivalent) 49022Ay: On: 27-Jan-2016 Intent Fast DO, Chaparrita A Fast DO, Chaparrita A Comments: Lot #:[id number] date:10/01/16mount given:0.5mlRoute: IMSite given: left deltoidGiven by: CARMELINA Hook ADMINISTRATION OF INFLUENZA VIRUS On: 27-Jan-2016 Intent VACCINE (G0008)By: Fast DO, Chaparrita A Fast DO, Chaparrita A DOPPLER ULTRASOUND OF RIGHT CAROTID On: 22-Oct-2015 Intent ARTERY (63067)By: Fast DO, Chaparrita A Fast DO, Chaparrita A MAMMOGRAM, SCREENING, BOTH BREAST On: 22-Oct-2015 Intent (27169)By: Fast DO, Chaparrita A Fast DO, Chaparrita A Ultrasound - RenalBy: Fast DO, On: 14-Jul-2015 Intent Chaparrita A Fast DO, Chaparrita A Radiology - Knee - Left - Weight On: 11-Mar-2015 Intent BearingBy: Fast DO, Chaparrita A Fast DO, Chaparrita A Radiology - Knee - Right - Weight On: 11-Mar-2015 Intent BearingBy: Case Albrecht DOa A Ambrocio WOLFF, Chaparrita A Flu Vaccine (Quadrivalent) 25632Bn: On: 11-Feb-2015 Intent Case Albrecht DOa A Ambrocio DO, Chaparrita A EKG (52101)By: Chaparrita Albrecht DO On: 05-Nov-2014 Intent Ambrocio WOLFF Chaparrita A Comments: ekg showed normal sinus rhythym, normal axis, no acute st/t wave changes left axis DRAIN/INJECT SMALL JOINT OR BURSA On: 07-Oct-2014 Intent ()By: Keri Singh MD MAMMOGRAM, SCREENING, BOTH BREAST On: 02-Aug-2014 Intent (80955)By: Chaparrita Albrecht DO Comments: meera Chaparrita WOLFF A Cartoid DopplerBy: Chaparrita Albrecht DO A On: 02-Aug-2014 Intent Ambrocio WOLFF Chaparrita A DEXA SCAN AXIAL SKELETON (31048)By: On: 09-Apr-2014 Intent Chaparrita Albrecht DO A Ambrocio WOLFF, Chaparrita A Prevnar 13 (11436)By: Ambrocio WOLFF, On: 30-Jan-2014 Intent Chaparrita Albrecht DO, Chaparrita A Comments: Lot:[id number]:05/20Dose:0.5Route:imSite:l armGiven By:Jarred signed FLU VAC, SPLIT, >3 YEARS, INTRAMUSC On: 16-Jan-2014 Intent (78743)By: Chaparrita Albrecht DO Comments: Lot #:[id number] date:12/2015Amount given:0.5mlRoute: IMSite given: left deltoidGiven by: CARMELINA Hook DO Chaparrita A ADMINISTRATION OF INFLUENZA VIRUS On: 16-Jan-2014 Intent VACCINE (G0008)By: Chaparrita Albrecht DO, DO, Chaparrita A EKG (76134)By: Chaparrita Albrecht DO On: 17-Oct-2013 Intent Ambrocio WOLFF Chaparrita A Comments: ekg showed normal sinus rhythym, left axis, no acute st/t wave changes Radiology - Chest- PA and LatBy: On: 17-Sep-2013 Intent Chaparrita Albrecht DO A Ambrocio DO, Chaparrita A Aerosol Treatment (90834)By: Ambrocio On: 17-Sep-2013 Intent DO, Chaparrita A Fast DO, Chaparrita A MRI - BrainBy: Fast DO, Chaparrita A On: 22-Jul-2013 Intent Fast DO, Chaparrita A Cartoid DopplerBy: Fast DO, Chaparrita A On: 20-Jul-2013 Intent Fast DO, Chaparrita A MAMMOGRAM, SCREENING, BOTH BREASTS On: 20-Jul-2013 Intent (50954)By: Case Albrecht DOa A Fast DO, Chaparrita A Eprescribed prescriptions On: 20-Jul-2013 Intent (G8553)By: Chaparrita Albrecht DO Fast DO, Chaparrita A Eprescribed prescriptions On: 02-Feb-2013 Intent (G8553)By: Марина Concepcion FLU VAC, SPLIT, >3 YEARS, INTRAMUSC On: 03-Jan-2013 Intent (74228)By: Марина Concepcion Comments: Lot #:[id number] date:mount given:0.5mlRoute: IMSite given: L dltdVIS and ABN signedGiven by: CARMELINA Hook ADMINISTRATION OF INFLUENZA VIRUS On: 03-Jan-2013 Intent VACCINE (G0008)By: Марина Concepcion CT - Abdomen & Pelvis (IV Contrast On: 17-Oct-2012 Intent Needed)By: Chaparrita Albrecht DO Comments: patient will be calling to set up DO, Chaparrita A Eprescribed prescriptions On: 10-Oct-2012 Intent (G8553)By: Марина Concepcion Ear Irrigation (18645)By: [place] On: 13-Jun-2012 Intent Ivy Comments: Ear Irrigation performed on: right earAmount/color removed cerumen: light brown, small amount removedOUtcome:Pt toleratedUsed wax curettes Wax Currettes (58866)By: [place] On: 13-Jun-2012 Intent Ivy PNEUM VAC ADLT/IMUMNOSPR, SBC/INTRM On: 13-Jun-2012 Intent (25025)By: Chaparrita Albrecht DO Comments: Lot:[id number]:09/09/13Dose:0.5mLRoute:IMSite:L armGiven By:BHUMI signed DO, Chaparrita A EKG (04981)By: Chaparrita Albrecht DO On: 13-Jun-2012 Intent Fast [...] MAMMOGRAM, SCREENING, BOTH BREASTS On: 28-Dec-2011 Intent (32599)By: Fast DO, Chaparrita A Fast DO, Chaparrita A DXA, BONE DENSITY, AXIAL SKELETON On: 28-Dec-2011 Intent (80014)By: Fast DO, Chaparrita A Fast DO, Chaparrita [...] SPLIT, >3 YEARS, INTRAMUSC On: 28-Dec-2011 Intent (69674)By: Марина Concepcion Comments: Lot #:[id number] date:mount given:0.5mlRoute: IMSite given: left deltoidGiven by: CARMELINA Hook ADMINISTRATION OF INFLUENZA VIRUS On: 28-Dec-2011 Intent VACCINE (G0008)By: Марина Concepcion Aerosol Treatment (82919)By: Ciesa On: 30-Nov-[address] - Abdomen & PelvisBy: Fast DO, On: 21-Sep-2011 Intent Chaparrita A Fast DO, Chaparrita A Comments: with special cuts through the kidney- october EKG (92106)By: Марина Concepcion On: 15-Jun-2011 Intent Comments: ekg [...] Comments: Call results to Dr. Albrecht @ [phone] as soon as resulted please. DO, Chaparrita A Eprescribed prescriptions On: 11-Jan-2011 Intent (G8553)By: Ambrocio DO, Chaparrita A Fast DO, Chaparrita A MAMMOGRAM, SCREENING, BOTH BREASTS On: 11-Jan-2011 Intent (42083)By: Fast DO, Chaparrita A Fast DO, Chaparrita A CT - Sinuses CompleteBy: Ambrocio WOLFF, On: 11-Jan-2011 Intent Chaparrita A Fast DO, Chaparrita A Cartoid DopplerBy: Fast DO, Chaparrita A On: 11-Jan-2011 Intent Fast DO, Chaparrita A ADMINISTRATION OF INFLUENZA VIRUS On: 11-Jan-2011 Intent VACCINE (G0008)By: Марина Concepcion FLU VAC, SPLIT, >3 YEARS, INTRAMUSC On: 11-Jan-2011 Intent (61426)By: Марина Concepcion Eprescribed prescriptions On: 12-Oct-2010 Intent (G8553)By: Ambrocio DO, Chaparrita A Fast DO, Chaparirta A Renal DopplerBy: Fast DO, Chaparrita A On: 12-Oct-2010 Intent Fast DO, Chaparrita A Cartoid DopplerBy: Fast DO, Chaparrita A On: 12-Oct-2010 Intent Fast DO, Chaparrita A Comments: sept TDAP VACCINE >7 IM (65068)By: On: 13-May-2010 Intent Lin Tineo LPNie Comments: Lot #[id number]-0/25/13Site-left deltoidgiven by:TIFFANY EKG (95549)By: Марина Concepcion On: 13-May-2010 Intent Comments: ekg showed normal sinus rhythym, normal axis, no acute st/t wave changes Aerosol Treatment (59581)By: Ciesa On: 22-Dec-2009 Intent Johanna SNAZ Cartoid DopplerBy: Fast DO, Chaparrita A On: 01-Dec-2009 Intent Fast DO, Chaparrita A MAMMOGRAM, SCREENING, BOTH BREASTS On: 01-Dec-2009 Intent (23182)By: Fast DO, Chaparrita A Fast DO, Chaparrita A DXA, BONE DENSITY, AXIAL SKELETON On: 01-Dec-2009 Intent (37052)By: Fast DO, Chaparrita A Fast DO, Chaparrita A Ultrasound - SpleenBy: Fast DO, On: 17-Jun-2009 Intent Chaparrita A Fast DO, Chaparrita A EKG (45498)By: Марина Concepcion On: 10-Mar-2009 Intent Comments: ekg showed normal sinus rhythym, normal axis, no acute st/t wave changes FLU VAC, SPLIT, >3 YEARS, INTRAMUSC On: 09-Jan-2009 Intent (01163)By: Stacy Jorge Comments: Lot #[id number]-0/2010Site-left deltoidDose0.5mlgiven by Marycarmen Jorge LPN ADMINISTRATION OF INFLUENZA VIRUS On: 09-Jan-2009 Intent VACCINE (G0008)By: Stacy Jorge MAMMOGRAM, SCREENING, BOTH BREASTS On: 04-Dec-2008 Intent ([id number])By: Fast DO, Chaparrita A Fast DO, Chaparrita A MAMMOGRAM, SCREENING, BOTH BREASTS On: 03-Sep-2008 Intent ([id number])By: Fast DO, Chaparrita A Fast DO, Chaparrita A FLU VAC, SPLIT, >3 YEARS, INTRAMUSC On: 16-Jan-2008 Intent ([id number])By: Janet Scherer RN Comments: Lot #: [id number] date: 09/10Amount given: 0.5 mlRoute: IMSite given: Left deltoidGiven by: Olivia Bell LPN ADMINISTRATION OF INFLUENZA VIRUS On: 16-Jan-2008 Intent VACCINE (G0008)By: Janet Scherer RN EKG ([id number])By: Fast DO, Chaparrita A On: 29-Aug-2007 Intent Fast DO, Chaparrita A Comments: done km ADMINISTRATION OF PNEUMOCOCCAL On: 29-Aug-2007 Intent VACCINE ([id number])By: Fast DO, Chaparrita A Fast DO, Chaparrita A PNEUM VAC ADLT/IMUMNOSPR, SBC/INTRM On: 29-Aug-2007 Intent ([id number])By: Fast DO, Chaparrita A Fast Comments: 0.5cc given im lt arm [id number] exp 02-13-08 DO, Chaparrita A DXA, BONE DENSITY, AXIAL SKELETON On: 29-Aug-2007 Intent ([id number])By: Fast DO, Chaparrita A Fast DO, Chaparrita A MAMMOGRAM, SCREENING, BOTH BREASTS On: 29-Aug-2007 Intent ([id number])By: Fast DO, Chaparrita A Fast DO, Chaparrita [...] new people and be involved in the [employer] 0 bps are good and sugar looking [...] medical issues: she has been working with [employer] and trying to work on that- she [...] she had episode where [facility] and she couldnt remember where she was- and happened one other time where she didnt recognize the roads- sister had alzheimer s- weight down because was sick- but coming back up- she hasnt done counseling with hospice has been thru before- she lonely- not necessarily unhappy- she doing self help 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 is singing with [employer]- -rodriguez gars are all in low 100s-130- going to [facility] for a month next monthEncounter Diagnosis: Nonsmoker, [...] Eddie and bp is good she joined [employer] sugar up bit doi ng ice cream-the bone density reviewed little thinner she not exercising routienly until just recent at [employer] and sees kidney doc next week and [...] maribel yfriend in hospice - going to [facility] end of month- too much to care [...] Meningioma (Renamed from ABNRM RESULT, FUNCTION STUDY, BRAIN/SAFETY AIDE NEC (794.09)) [facility] Visit [...] Meningioma (Renamed from ABNRM RESULT, FUNCTION STUDY, BRAIN/SAFETY AIDE NEC (794.09)), Diabetes, Type II, controlled (250.00), [...] take byetta due to cost in [facility]- - takes ??lorazepam 1-2 times a week [...] Meningioma (Renamed from ABNRM RESULT, FUNCTION STUDY, BRAIN/SAFETY AIDE NEC (794.09)), Colon Polyp [facility] [...] Meningioma (Renamed from ABNRM RESULT, FUNCTION STUDY, BRAIN/SAFETY AIDE NEC (794.09)), OCCLUSION AND STENOSIS OF CAROTID [...] Meningioma (Renamed from ABNRM RESULT, FUNCTION STUDY, BRAIN/SAFETY AIDE NEC (794.09)), Chronic glomerulonephritis with lesion of [...] Meningioma (Renamed from ABNRM RESULT, FUNCTION STUDY, BRAIN/SAFETY AIDE NEC (794.09)), Other and unspecified hyperlipidemia (272.4), [...] Meningioma (Renamed from ABNRM RESULT, FUNCTION STUDY, BRAIN/SAFETY AIDE NEC (794.09)) [facility] Visit [...] Meningioma (Renamed from ABNRM RESULT, FUNCTION STUDY, BRAIN/SAFETY AIDE NEC (794.09)), Gerd (530.81), Hyperlipidemia, Unspecified (272.4), [...] Meningioma (Renamed from ABNRM RESULT, FUNCTION STUDY, BRAIN/SAFETY AIDE NEC (794.09)), Hypertension,benign(401.1), OCCLUSION AND STENOSIS OF [...] Meningioma (Renamed from ABNRM RESULT, FUNCTION STUDY, BRAIN/SAFETY AIDE NEC (794.09)), Diabetes, Type II, controlled (250.00), [...] Meningioma (Renamed from ABNRM RESULT, FUNCTION STUDY, BRAIN/SAFETY AIDE NEC (794.09)), Hypertension,benign(401.1), Osteopenia (733.90), Depression (311.), [...] weight down 23 pounds- and trying joined [employer]- she feels well - she increased celexa [...] Meningioma (Renamed from ABNRM RESULT, FUNCTION STUDY, BRAIN/SAFETY AIDE NEC (794.09)), Chronic glomerulonephritis with lesion of [...] Meningioma (Renamed from ABNRM RESULT, FUNCTION STUDY, BRAIN/SAFETY AIDE NEC (794.09)) End: 26-Jan-2011 16:53 [facility] Office Visit On: 19-Jan-2011 14:30 Encounter Diagnosis: brain tumor End: 21-Sep-2011 8:09 [facility] Phone Encounter On: 19-Jan-2011 13:41 Encounter Diagnosis: ABNRM RESULT, FUNCTION STUDY, BRAIN/SAFETY AIDE NEC (794.09) End: 19-Jan-2011 13:44 [facility] [...] WITH RADICULOPATHY (724.4) [facility] Payers MedicareAARP/[facility]ITALGAGAN ALBERT; a guarantor
--- OUTSIDE RECORDS SUMMARY | 2018-06-25 22:22 | XMS RPT_ITS | Continuity of Care Document ---
:1940 Author Organization [facility] Address [address] [place] [address] Phone Care Team Providers Name Role Phone [...] Knee pain, unspecified laterality (719.46) Comments: Valorie:lot: [id number]: 09/20site/route: L knee Status: Active Leg pain, [...] Quantity: 28 {Capsule} Refills: 0 Ordered:12-Oct-2010 Ambrocio DOCasea AFkaren DOCasea A Start : 12-Oct-2010 End : 26-Oct-2010 Inactive DULoxetine HCl 30 MG Oral Capsule Delayed Release Particles 1 (one) Capsule DR Part qday for 90 days Quantity: 90 {Capsule} Refills: 3 Ordered:04-May-2016 SHONDA Andrade Start : 27-Jan-2016 End : 04-May-2016 Inactive Dymista 137-50 MCG/ACT Nasal Suspension 1 (one) Suspension 1 spray daily for 0 days Quantity: 1 {Griffin} Refills: 0 Ordered:04-May-2016 SHONDA Andrade Start : [...] and dispense 8 ounes TOTAL mixed solutionCal [id number] if questions SPECTAZOLE, 1% (External Cream) 1 [...] 90 days Refills: 3 Ordered:14-Jul-2015 Chaparrita Albrecht DO, DO, Chaparrita A Start : 14-Jul-2015 End : 14-Jul-2015 Discontinued ZETIA, 10MG (Oral Tablet) 1 tab qd for 0 days Refills: 0 Ordered:06-Dec-2007 Марина Concepcion End : 06-Dec-2007 Discontinued ZOLOFT, 50MG (Oral Tablet) 2 (two) Tablet daily for 0 days Quantity: 60 {Tablet} Refills: 3 Ordered:20-Jul-2013 Chaparrita Albrecht DO, DO, Chaparrita A Start : 20-Jul-2013 End : 20-Jul-2013 Discontinued ZOLPIDEM TARTRATE, 10MG (Oral Tablet) 1 (one) Tablet Tablet qhs prn for 0 days Quantity: 30 {Tablet} Refills: 0 Ordered:11-Feb-2015 Марина Concepcion Start : 30-Aug-2014 End : 11-Feb-2015 Discontinued Comments:th[age], called to [facility] 08-30-14 [facility] Allergies and Adverse Reactions Name Dates Details [...] Meningioma (Renamed from ABNRM RESULT, FUNCTION STUDY, BRAIN/ASSURANCE ENGINEER 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 2015 right Cholecystectomy Completed lumbar fktuam==0732 Completed Tonsillectomy Completed Date Value Details 19-Dec-2017 Echocardiogram Complete Result: Comments: See Note; NOTES: [facility] Cardiovascular Services [address] [place] [address] Echo Complete 12/19/17 0800 MR#: [id number] Acct: [id number] Name: CLARENCE ALBERT ep #: [id number] : 1940 77 From: Chuckie Cormier MD Attending Dr: Chaparrita Albrecht DO Status: REG CLI Ordering Dr: Chaparrita Albrecht DO Date: 12/19/17 Location: [facility] Sex: F C Admitted: Reason [...] Dictated: 12/19/17 0800 Date Transcribed: 12/19/17 1022 Beer Brewer: Signed 07-Dec-2017 Carotid Duplex Ultrasound Result: Comments: See Note; NOTES: [facility] Cardiovascular Services [address] [place] [address] Carotid Duplex Ultrasound 12/06/17 0901 MR#: [id number] Acct: [id number] Name: CLARENCE WHITTINGTON Nazia Rep #: [id number] : 1940 77 From: Anurag Loya MD [...] the left vertebral artery. Procedure Carotid Duplex 69711. Exam performed in department. Interpretation Summary Mild (<50%) stenosis right extracranial internal carotid. Mild (<50%) stenosis left extracranial internal carotid. Flow within the vertebral arteries is antegrade bilaterally. __ __ Ordering Physician: Chaparrita Albrecht Performed By: Margot Benton RVT and Student 12/07/17 0809 Date Anurag Loya MD CC: Chaparrita Albrecht DO Date Dictated: 12/06/17900 Date Transcribed: 12/07/17808 Beer Brewer: Signed 06-Dec-2017 SCREENING MAMM (CAD), BILAT Result: Comments: See Note; NOTES: [facility] Imaging Services [address] [place] [address] SCREENING MAMM (CAD), BILAT MR#: [id number] Acct: [id number] Name: CLARENCE ALBERT Rep #: [id number] : 1940 F 77 From: Misael Hebert MD PCP: Chaparrita Albrecht DO Status: REG CLI Study: SCREENING MAMM (CAD), BILAT Date of Exam: 12/06/17 Exam# [id number] Ordering Dr: Chaparrita Albrecht DO MAMM OGRAPHY [...] delay biopsy of a clinically suspicious abnormality. [id number] Electronically Signed: Misael Hebert MD at 15:31 EDT Tel [phone], Se rvice support , CC: Chaparrita Albrecht DO Beer Brewer: Signed 10-Jun-2017 Brain W/WO Contrast Result: Comments: See Note; NOTES: [facility] Imaging Services [address] [place] [address] Brain W/WO Contrast MR#: [id number] Acct: [id number] Name: CLARENCE ALBERT Rep #: [id number] : 1940 F 77 From: Laya Montilla MD PCP: Chaparrita Albrecht DO Status: REG CLI Study: Brain W/WO Contrast Date of Exam: 06/10/17 Exam# [id number] Ordering Dr: Chaparrita Albrecht DO STUDY: MRI [...] Service support , CC: Chaparrita Albrecht DO Beer Brewer: Signed 05-May-2017 Chest PA and Lateral Result: Comments: See Note; NOTES: [facility] Imaging Services [address] [place] [address] Chest PA and Lateral MR#: [id number] Acct: [id number] Name: CLARENCE ALBERT Rep #: [id number] : 1940 F 77 From: Edwar Patino MD PCP: Chaparrita Albrecht DO Status: REG CLI Study: Chest PA and Lateral Date of Exam: 05/05/17 Exam# [id number] Ordering Dr: Keri Singh MD STUDY: X-RAY [...] CC: Keri Singh MD; Chaparrita Albrecht DO Beer Brewer: Signed 02-Nov-2016 Dexa Bone Density Study (HP) Result: Comments: See Note; NOTES: [facility] Imaging Services [address] [place] [address] Verdana 4d Dexa Bone Density Study (HP) MR#: [id number] Acct: [id number] Name: LYNNE ALBERT Rep #: [id number] : 1940 F 76 From: Misael Hebert MD PCP: Chaparrita Albrecht DO Status: REG CLI Study: Dexa Bone Density Study (HP) Date of Exam: 11/02/16 Exam# [id number] Ordering Dr: Laura DO STUDY: DUAL ENERGY [...] Misael Hebert MD at 11:02 EDT Tel [phone], Service support , CC: Chaparrita Albrecht DO Beer Brewer: Signed 02-Nov-2016 SCREENING MAMM (CAD), BILAT Result: Comments: See Note; NOTES: [facility] Imaging Services [address] [place] [address] Verdana 4d SCREENING MAMM (CAD), BILAT MR#: [id number] Acct: [id number] Name: CLARENCE ALBERT Rep #: [id number] : 1940 F 76 From: Misael Hebert MD PCP: Chaparrita Albrecht DO Status: [facility] CL Study: SCREENING MAMM (CAD), BILAT Date of Exam: 11/02/16 Exam# [id number] Ordering Dr: Case Albrecht DO MAMMOGRAPHY - [...] delay biopsy of a clinically suspicious abnormality. [id number] Electronically Signed: Misael Hebert MD at 12:44 EDT Tel [phone], Service support , CC: Cahparrita Albrecht DO Beer Brewer: Signed 05-Aug-2016 Venous Duplex Lower Extremity Result: Comments: See Note; NOTES: [facility] Cardiovascular Services [address] [place] [address] Venous Duplex US, Unilateral 08/05/16 1053 MR#: [id number] Acct: [id number] Name: CLARENCE WEI Rep #: [id number] : 1940 76 From: Elvin Natarajan MD [...] Dictated: 08/05/16 1053 Date Transcribed: 08/05/16 1127 Beer Brewer: Signed 27-May-2016 Knee 4 or More Views Result: Comments: See Note; NOTES: [facility] Imaging Services [address] [place] [address] Verdana 4d Knee 4 or More Views MR#: [id number] Acct: [id number] Name: CLARENCE ALBERT Rep #: [id number] : 1940 F 76 From: Misael Hebert MD PCP: Chaparrita Albrecht DO Status: REG CLI Study: Knee 4 or More Views Date of Exam: 05/27/16 Exam# [id number] Ordering Dr: Kylah Linda DO UDY: X-RAY [...] MD at 10:41 EST , Service support [phone], CC: Chaparrita Albrecht DO; Kylah Linda DO Beer Brewer: Signed 13-May-2016 Sinus/Facial Bone Result: Comments: See Note; NOTES: [facility] Imaging Services [address] [place] [address] Verdana 4d Sinus/Facial Bone MR#: [id number] Acct: [id number] Name: CLARENCE ALBERT Rep #: [id number] : 1940 F 76 From: Godwin Winter MD PCP: Chaparrita Albrecht DO Status: REG CLI Study: Sinus/Facial Bone Date of Exam: 05/13/16 Exam# [id number] Ordering Dr: Alejandro Silverman MD STUDY: CT [...] MD at 7:35 EST , Service support [phone], CC: Chaparrita Albrecht DO; Alejandro Silverman MD Beer Brewer: Signed 21-Apr-2016 Emergency Department Summary Result: Comments: See Note; NOTES: [facility] Medical Records Department [address] [place] [address] Emergency Department Summary MR#: [id number] Acct: [id number] Name: CLARENCE ALBERT Rep #: [id number] : 1940 76 From: Carissa Murphy MD [...] epistaxis. CARISSA MURPHY MD T: NTS JOB: [id number] 04/21/16 0806 <Electronically signed by Carissa Murphy MD> Date Carissa donovan MD Cosigner Signature (If Indicated): Date CC: Chaparrita Albrecht DO Date Dictated: 04/20/161711 Date Transcribed: 04/20/161711 Beer Brewer: Signed 20-Apr-2016 Discharge Instruction Result: Comments: See Note; NOTES: [facility] Medical Records Department [address] [place] [address] Discharge Instruction 04/20/16 1303 MR#: [id number] Acct: [id number] Name: CLARENCE ALBERT Rep #: [id number] : 1940 76 From: Carissa Murphy MD [...] your Primary Care Provider. Call [facility] ([phone]) or report to the closest Emergency Room. Call 911 if necessary. 04/20/16 1645 <Electronically signed by Carissa Murphy MD> Date Carissa Murphy MD Cosigner Signature (If I ndicated): Date CC: Chaparrita Albrecht DO 02-Nov-2015 Carotid Duplex Ultrasound Result: Comments: See Note; NOTES: [facility] Cardiovascular Services [address] [place] [address] Carotid Duplex Ultrasound 10/30/15 1100 MR#: [id number] Acct: [id number] Name: CLARENCE ALBERT Rep #: [id number] : 1940 75 From: Elvin Natarajan MD Attending Dr: Chaparrita Albrecht DO Status: REG CLI Ordering Dr: Chaparrita Albrecht DO Date: 10/30/15 Location: [facility] Sex: F C Adm itted: [...] the left vertebral artery. Procedure Carotid Duplex 09136. The exam was diagnostic. Exam performed in [...] Dictated: 10/30/15 1100 Date Transcribed: 11/02/15 1143 Beer Brewer: Signed 30-Oct-2015 Bilat Scrn Digital AND CAD Result: Comments: See Note; NOTES: [facility] Imaging Services [address] [place] [address] Verdana 4d Bilat Scrn Digital AND CAD MR#: [id number] Acct: [id number] Name: CLARENCE ALBERT Rep #: [id number] : 1940 F 75 From: Andres Brady MD PCP: Chaparrita Albrecht DO Status: REG CLI Study: Bilat Scrn Digital AND CAD Date of Exam: 10/30/15 Exam# [id number] Ordering Dr: Chaparrita Albrecht DO MAMMOGRAPHY - [...] biop sy of a clinically suspicious abnormality. [id number] Electronically Signed: Andres Brady MD at 17:48 EDT Tel , Service support [phone], CC: Chaparrita Albrecht DO Beer Brewer: Signed 30-Oct-2015 Bilat Scrn Digital AND CAD Result: Comments: See Note; NOTES: [facility] Imaging Services [address] [place] [address] Verdana 4d Bilat Scrn Digital AND CAD MR#: [id number] Acct: [id number] Name: CLARENCE ALBERT Rep #: [id number] : 1940 F 75 From: Andres Brady MD PCP: Chaparrita Albrecht DO Status: REG CLI Study: Bilat Scrn Digital AND CAD Date of Exam: 10/30/15 Exam# [id number] Ordering Dr: Chaparrita Albrecht DO MAMMOGRAPHY - [...] abnormalities are identified. CC: Chaparrita Albrecht DO Beer Brewer: Signed 22-Oct-2015 ELECTROCARDIOGRAM, COMPLETE (ECG) (85113) Comments: ekg showed normal sinus rhythym, normal axis, no acute st/t wave changes no change Result: [MEASUREMENTS ANALYSIS] Date of Test: 10/22/2015 14:41:29; Heart Rate: 71; WV Interval: 140; QRS: 94; QT Interval: 384; Corrected QT Interval (QTc): 403; P Wave [place]: 58; QRS Wave [place]: -3; T Wave [place]: 56; Blood Pressure: 128/76 [ECG DIAGNOSTIC STATEMENTS] Date of Test: 10/22/2015 14:41:29; Summary: Sinus Rhythm Low voltage -possible pulmonary disease. ABNORMAL 22-Jul-2015 Kidney and Bladder Result: Comments: See Note; NOTES: [facility] Imaging Services [address] [place] [address] Verdana 4d Kidney and Bladder MR#: [id number] Acct: [id number] Name: BETYYanivRika Mandujano Rep #: [id number] : 1940 F 75 From: Nir Sanchez MD PCP: Chaparrita Albrecht DO Status: REG CLI Study: Kidney and Bladder Date of Exam: 07/22/15 Exam# [id number] Ordering Dr: Chaparrita Albrecht DO STUDY: RENAL [...] Service support , CC: Chaparrita Albrecht DO Beer Brewer: Signed 11-Mar-2015 Knee 4 or More Views Result: Comments: See Note; NOTES: [facility] Imaging Services [address] [place] [address] Verdana 4d Knee 4 or More Views MR#: [id number] Acct: [id number] Name: CLARENCE ALBERT Rep #: [id number] : 1940 F 74 From: Trent Cameron DO PCP: Chaparrita Albrecht DO Status: REG CLI Study: Knee 4 or More Views Date of Exam: 03/11/15 Exam# [id number] Ordering Dr: Case Albrecht DO STUDY: X-RAY [...] at 7:45 EST Tel , Service support [phone], RAD/Knee 4 or More Views IMPRESSION: Degener ative changes within the knee. No acute fracture. Small suprapatellar effusion. Electronically Signed: Trent Cameron DO at 7:45 EST Tel , Service support [phone], CC: Chaparrita Albrecht DO Beer Brewer: Signed 11-Mar-2015 Knee 4 or More Views Result: Comments: See Note; NOTES: [facility] Imaging Services [address] [place] [address] Verdana 4d Knee 4 or More Views MR#: [id number] Acct: [id number] Name: CLARENCE ALBERT Rep #: [id number] : 1940 F 74 From: Trent Cameron DO PCP: Chaparrita Albrecht DO Status: REG CLI Study: Knee 4 or More Views Date of Exam: 03/11/15 Exam# [id number] Ordering Dr: Case Albrecht DO STUDY: X-RAY [...] at 7:46 EST Tel , Service support [phone], RAD/Knee 4 or More Views IMPRESSION: Mild degenerative changes. No acute bony abnormality. Electronically Signed: Trent Cameron DO at 7:46 EST Tel , Service support [phone], CC: Chaparrita Albrecht DO Beer Brewer: Signed 18-Oct-2014 Carotid Duplex Ultrasound Result: Comments: See Note; NOTES: [facility] Cardiovascular Services [address] [place] [address] Carotid Duplex Ultrasound 10/18/14 1331 MR#: [id number] Acct: [id number] Na me: CLARENCE ALBERT Rep #: [id number] : 1940 74 From: Elvin Natarajan MD [...] the left vertebral artery. Procedure Carotid Duplex 79150. The exam was diagnostic. Exam performed in [...] Dictated: 10/18/14 1331 Date Transcribed: 10/18/14 1616 Beer Brewer: Signed 18-Oct-2014 Bilat Scrn Digital AND CAD Result: Comments: See Note; NOTES: [facility] Imaging Services [address] [place] [address] Breast Imaging Report MR#: [id number] Acct: [id number] Name: CLARENCE ALBERT Rep #: [id number] : 1940 F 74 From: Misael Hebert MD PCP: Chaparrita Albrecht DO Status: REG CLI Study: Saad Jaffe Digital AND CAD Date of Exam: 10/18/14 Exam# [id number] Ordering Dr: Chaparrita Albrecht DO MAMMOGRAPHY - [...] Misael redmond MD at 13:44 EDT Tel [phone], Service support [phone], CC: Chaparrita Albrecht DO Beer Brewer: Signed 09-Jul-2014 Dexa Bone Density Study (HP) Result: Comments: See Note; NOTES: [facility] Imaging Services [address] [place] [address] Bone Density Report MR#: [id number] Acct: [id number] Name: CLARENCE ALBERT Rep #: [id number] : 1940 F 74 From: Misael Hebert MD PCP: Chaparrita Albrecht DO Status: REG CLI Study: Dexa Bone Density Study (HP) Date of Exam: 07/09/14 Exam# [id number] Ordering Dr: Chaparrita Albrecht DO STUDY: DUAL [...] Angel Hebert MD at 14:55 EDT Tel [phone], Service support [phone], CC: Chaparrita Albrecht DO Beer Brewer: Signed 17-Sep-2013 Chest PA and Lateral Result: Comments: See Note; NOTES: [facility] Imaging Services [address] [place] [address] Radiology Report MR#: [id number] Acct: [id number] Name: CLARENCE ALBERT Rep #: [id number] : 1940 F 73 From: David Bennett MD PCP: Chaparrita Albrecht DO Status: REG CLI Study: Chest PA and Lateral Date of Exam: 09/17/13 Exam# [id number] Ordering Dr: Chaparrita Albrecht DO STUDY: X-RAY [...] MD at 20:44 EDT , Service support [phone], RAD/Chest PA and Lateral IMPRESSION: No focal infiltrate or edema. Electronic ally Signed: David Bennett MD at 20:44 EDT , Service support [phone], CC: Chaparrita Albrecht DO Beer Brewer: Signed 17-Sep-2013 Spirometry (89720) Result: 29-Aug-2013 Carotid Duplex Ultrasound Result: Comments: See Note; NOTES: [facility] Cardiovascular Services [address] [place] [address] Carotid Duplex Ultrasound 08/24/13 0939 MR#: [id number] Acct: [id number] Chalo e: CLARENCE ALBERT Rep #: [id number] : 1940 73 From: Anurag Loya MD [...] in the left bulb. Procedure Carotid Duplex 93383. Exam perfor med in department. Interpretation Summary Mild (<50%) stenosis right extracranial internal carotid. Mild (<50%) stenosis left extracranial internal carotid. Flow within the vertebra l arteries is antegrade bilaterally. Ordering Physician: Chaparrita Albrecht Performed By: Kendal Benton RVT : Chaparrita Albrecht DO Date Dictated: 08/24/13 0939 Date Transcribed: 08/29/13 1118 Beer Brewer: Signed Immunization Name Dates Details Influenza (3 years and up) on: 16-Jan-2008 Comments: Lot #: [id number] date: 09/10Amount given: 0.5 mlRoute: IMSite given: Left deltoidGiven by: Olivia Bell LPN Influenza (3 years and up) on: 09-Jan-2009 Comments: Lot #[id number]-left deltoidDose0.5mlgiven by Marycarmen Jorge LPN Pneumococcal (2 years and up) on: 29-Aug-2007 Comments: 0.5cc given im lt arm [id number] exp 02-13-08 Family History Unknown Family Member [...] Description Value Details :24 HgA1C , Office (65682) HgA1C , Office 6.5 % (Normal) Range: 4.6 - 7.1 :14 LIPID PANEL (02145) Comments: PATIENT WAS FASTINGPERFORMED BY: [facility] HospitalOgxalz4296 [facility] [id number] LDL/HDL Ratio 1.1 {ratio} (Normal) Range: 0.0-3.2 [...] (Normal) Range: 100-199 :14 Vitamin D Hydroxy (84493) Comments: PATIENT WAS FASTINGPERFORMED BY: [facility] Gladwin6370 [facility] [id number] Vitamin D, 25-Hydroxy 37.8 ng/mL (Normal) Range: 30.0-100.0 Comments: Vitamin D deficiency has been defined by the Weed ofMedicine and an Endocrine Society practice guideline as alevel of serum 25-OH vitamin D less than 20 ng/mL (1,2).The Endocrine Society went on to further define vitamin Dinsufficiency as a level between 21 and 29 ng/mL (2).1. IOM (Weed of Medicine). 2010. Dietary reference intakes for calcium and D. [place]: The National Academies Press.2. Mira MF, Rosette LOPEZ, Tommy SWAIN, et al. Evaluation, treatment, and prevention of vitamin D deficiency: an Endocrine Society clinical practice guideline. JCEM. 2010; 96(7):1911-30. :14 CBC with auto diff (83236) Comments: PATIENT WAS FASTINGPERFORMED BY: [facility] Mlrgkm2545 [facility] [id number] Immature Grans (Abs) 0.0 {x10E3/uL} (Normal) Range: [...] PANEL, COMPREHENSIVE Comments: PATIENT WAS FASTINGPERFORMED BY: [facility] HospitalLxjhlu9839 [facility] [id number] (15051) ALT (SGPT) 10 [iU]/L (Normal) Range: 0-32 [...] CREATININE RATIO Comments: PATIENT WAS FASTINGPERFORMED BY: [facility].laM[facility] HospitalVsvtui1339 [facility] [id number] (27235) AND (34432) Alb/Creat Ratio 4213.3 {mg/g_creat} (Abnormal) Range: 0.0-30.0 Albumin, Urine 3206.3 ug/mL (Normal) Comments: Results confirmed ondilution. Creatinine, Urine 76.1 mg/dL (Normal) :40 CBC & PLATELETS (AUTO) (61755) Comments: please fax to Dr. Austin- [phone]; PATIENT WAS FASTINGPERFORMED BY: [facility] HospitalVcfshw1179 [facility] [id number] Platelets 148 {x10E3/uL} (Abnormal) Range: 150-379 RDW [...] PANEL Comments: please fax to Dr. Austin- [phone]; PATIENT WAS FASTINGPERFORMED BY: [facility] HospitalAcfsqg4133 [facility] [id number] Information: [id number],B04201 FX DR. SANTANA (60992) Albumin 3.1 g/dL (Abnormal) Range: 3.5-4.8 Phosphorus [...] 133 mg/dL (Abnormal) Range: 65-99 :40 MAGNESIUM (04888) Comments: please fax to Dr. Austin- [phone]; PATIENT WAS FASTINGPERFORMED BY: HYGIEIA [facility] Dilirm7703 [facility] [id number] Magnesium 1.9 mg/dL (Normal) Range: 1.6-2.3 :40 CALCIFEDIOL (29861) Comments: please fax to Dr. Austin- [phone]; PATIENT WAS FASTINGPERFORMED BY: HYGIEIA [facility] Beiycu8769 [facility] [id number] Vitamin D, 25-Hydroxy 29.4 ng/mL (Abnormal) Range: 30.0-100.0 Comments: Vitamin D deficiency has been defined by the Weed ofMedicine and an Endocrine Society practice guideline as alevel of serum 25-OH vitamin D less than 20 ng/mL (1,2).The Endocrine Society went on to further define vitamin Dinsufficiency as a level between 21 and 29 ng/mL (2).1. IOM (Weed of Medicine). 2010. Dietary reference intakes for calcium and D. [place]: The National Academies Press.2. Mira MF, Rosette LOPEZ, Tommy SWAIN, et al. Evaluation, treatment, and prevention of vitamin D deficiency: an Endocrine Society clinical practice guideline. JCEM. 2010; 96(7):1911-30. 66-Uxt-45918:40 PARATHORMONE (76423) Comments: please fax to Dr. Austin- [phone]; PATIENT WAS FASTINGPERFORMED BY: EVE [facility] Lmvlwu[address] [place] [id number] PTH, Intact 22 pg/mL (Normal) Range: 15-65 :30 COLON BIOPSY (CHOOSE See Note (Normal) Comments: [facility] [address] [place], [address] SITE) Comments: Patient: CLARENCE ALBERT : 1940 (77/F) Acct Num: [id number] Phys: Marcus Caldera Unit Num: [id number] Loc: [facility] Specimen: [id number] Received: 09/16/171528 Spec Type: C OLON BX [...] one cassette. / MARCY:dustin 09/19/17 TC:1 CPT: 99176 x2 HEADER OPERATION: Colonoscopy PRE-OP DIAGNOSIS: History of polyps TISSUE SUBMITTED: A Proximal sigmoid polyp, rule out adenoma, B Transversecolon, rule out adenoma MICROSCOPIC DESCRIPTION Slides are reviewed. M ICROSCOPIC DIAGNOSIS A. Proximal sigmoid polyp, biopsy: Fragments of tubular adenoma. B. Transverse colon polyp, biopsy: Fragments of tubular adenoma. MARCY:dustin 09/20/17 Signed _ Nacho Ardon 09/20/17 <signature on file> 25-Euh-15551:24 METABOLIC PANEL, COMPREHENSIVE Comments: PATIENT NOT FASTINGPERFORMED BY: [facility] HospitalVydozl6776 [facility] [id number] (04001) ALT (SGPT) 14 [iU]/L (Normal) Range: 0-32 [...] (Abnormal) Range: 65-99 :07 HgA1C , Office (49983) HgA1C , Office 7.2 % (Abnormal) Range: 4.6 - 7.1 :37 Clostridium difficile Toxin Comments: PATIENT NOT FASTINGPERFORMED BY: [facility] HospitalAbvegu0666 [facility] [id number] A+B, EIA (74497) C difficile Toxins A+B, EIA Negative (Normal) :37 LEUKOCYTE COUNT, FECAL (15232) Comments: PATIENT NOT FASTINGPERFORMED BY: [facility] Eqahii2457 [facility] [id number] Result 1 NWBC (Normal) Comments: No white blood cells seen. White Blood Cells (WBC), Final report (Normal) Stool :37 OVA & PARASITE DIR SMEAR Comments: PATIENT NOT FASTINGPERFORMED BY: [facility] Uadnvq5866 [facility] [id number] (24408) Result 1 NOCP (Normal) Comments: No ova, cysts, or parasites seen. Ova + Parasite Exam Final report (Normal) Comments: These results were obtained using wet preparation(s) and trichromestained smear. This test does not include testing for Cryptosporidiumparvum, Cyclospora, or Microsporidia. :37 SETH CULTURE-STOOL (42367) Comments: PATIENT NOT FASTINGPERFORMED BY: [facility] Tukjpa0728 [facility] [id number] Information: SRC:ST SRC:ST E coli Shiga Toxin EIA Negative (Normal) Result 1 NCI (Normal) Comments: No Campylobacter species isolated. Campylobacter Culture Final report (Normal) Result 1 NSS (Normal) Comments: No Salmonella or Shigella recovered. Salmonella/Shigella Screen Final report (Normal) :06 Renal function Panel Comments: fax copy to Dr. Santana [phone]; A courtesy copy of this report has been sent [phone].PATIENT NOT FASTINGPERFORMED BY: [facility] HospitalOkreoc7177 [facility] [id number] Information: NURSE DRAW (94144) Albumin 3.5 g/dL (Normal) Range: 3.5-4.8 Phosphorus [...] copy of this report has been sent [phone].PATIENT NOT FASTINGPERFORMED BY: [facility]At[facility] [id number] :02 Range: 15-65 Vitamin D, 25-Hydroxy 34.7 ng/mL (Normal) Comments: A courtesy copy of this report has been sent [phone].PATIENT NOT FASTINGPERFORMED BY: [employer]6370 [facility] [id number] :02 Range: 30.0-100.0 Comments: Vitamin D deficiency has been defined by the Weed ofMedicine and an Endocrine Society practice guideline as alevel of serum 25-OH vitamin D less than 20 ng/mL (1,2).The Endocrine Society went on to further define vitamin Dinsufficiency as a level between 21 and 29 ng/mL (2).1. IOM (Weed of Medicine). 2010. Dietary reference intakes for calcium and D. [place]: The National Academies Press.2. Mira MF, Rosette LOPEZ, Tommy SWAIN, et al. Evaluation, treatment, and prevention of vitamin D deficiency: an Endocrine Society clinical practice guideline. JCEM. 2010; 96(7):1911-30. 6-Zaf-580466:02 MICROALBUMIN: CREATININE RATIO Comments: send results to Dr. Santana fax: [phone]; A courtesy copy of this report has been sent [phone].PATIENT NOT FASTINGPERFORMED BY: Popset Ikoucx6415 [facility] [facility] [id number] (93073) AND (68327) Alb/Creat Ratio 4191.2 {mg/g_creat} (Abnormal) Range: 0.0-30.0 Albumin, Urine 2380.6 ug/mL (Normal) Comments: Results confirmed ondilution. Creatinine, Urine 56.8 mg/dL (Normal) 4-Thh-203921:02 CBC, PLATELETS & MANUAL Comments: send results to Dr. Santana fax: [phone]; A courtesy copy of this report has been sent [phone].PATIENT NOT FASTINGPERFORMED BY: [facility] Njtfbs6532 [facility] [id number] Information: VIT D25, PTH DIFF (23898) Immature Grans (Abs) 0.0 {x10E3/uL} (Normal) Range: [...] 3.77-5.28 WBC 5.4 {x10E3/uL} (Normal) Range: 3.4-10.8 3-Nnl-214716:02 MAGNESIUM (57885) Comments: send results to Dr. Santana fax: [phone]; A courtesy copy of this report has been sent [phone].PATIENT NOT FASTINGPERFORMED BY: MirDeneg [facility] [id number] Magnesium, Serum 1.8 mg/dL (Normal) Range: 1.6-2.3 1-Gxj-397060:02 RENAL FUNCTION PANEL (49928) Comments: send results to Dr. Santana fax: [phone]; A courtesy copy of this report has been sent [phone].PATIENT NOT FASTINGPERFORMED BY: MirDeneg [facility] [id number] Albumin, Serum 3.7 g/dL (Normal) Range: 3.5-4.8 [...] Glucose, Serum 119 mg/dL (Abnormal) Range: 65-99 8-Qxl-173262:07 LIPID PANEL (36456) Comments: PATIENT WAS FASTINGPERFORMED BY: Decisiv70 [facility] [id number] LDL/HDL Ratio 1.4 {ratio} (Normal) Range: 0.0-3.2 Comments: LDL/HDL Ratio Men Women 1/2 Avg.Risk 1.0 1.5 Av g.Risk 3.6 3.2 2X Avg.Risk 6.2 5.0 3X Avg.Risk 8.0 6.1 LDL Cholesterol Calc 102 mg/dL (Abnormal) Range: 0-99 VLDL Cholesterol Cesar 17 mg/dL (Normal) Range: 5-40 HDL Cholesterol 75 mg/dL (Normal) Triglycerides 84 mg/dL (Normal) Range: 0-149 Cholesterol, Total 194 mg/dL (Normal) Range: 100-199 0-Cga-647967:07 CBC W/AUTO DIFF WBC (20931) Comments: PATIENT WAS FASTINGPERFORMED BY: [facility] Cutmjp9406 [facility] [id number] Immature Grans (Abs) 0.0 {x10E3/uL} (Normal) Range: [...] 3.77-5.28 WBC 4.8 {x10E3/uL} (Normal) Range: 3.4-10.8 5-Mck-651274:07 METABOLIC PANEL, COMPREHENSIVE Comments: PATIENT WAS FASTINGPERFORMED BY: [facility] Edulmd4169 [place] [id number] (71222) ALT (SGPT) 14 [iU]/L (Normal) Range: 0-32 [...] 8-27 Glucose 158 mg/dL (Abnormal) Range: 65-99 1-Bjf-257060:07 VITAMIN B-12 (CYANOCOBALAMIN) Comments: PATIENT WAS FASTINGPERFORMED BY: [facility] Cuaqwz0959 [facility] [id number] (90323) Vitamin B12 771 pg/mL (Normal) Range: 232-1245 13-May-20170:00 CDIFF (Molecular) Comments: [facility] Zwmxlpjzzm4[address] [place], [address] CDIFF See Note (Normal) Comments: Cdiff-MolecularNormal Reference Range = Negative C. Diff DNA Negative- No toxigenic C. Diff DNA DetectedNAAT METHOD Testing was performed using nucleic acid amplification :32 Rapid Flu (35091 x 2) Influenza A Ag Negative (Normal) :35 CBC with auto diff (65694) Comments: PATIENT WAS FASTINGPERFORMED BY: [facility] Ewwyko7421 [facility] [id number] Immature Grans (Abs) 0.0 {x10E3/uL} (Normal) Range: [...] PANEL, COMPREHENSIVE Comments: PATIENT WAS FASTINGPERFORMED BY: LabCoMarlton Rehabilitation HospitalTobgwi5789 [facility] [id number] (33742) ALT (SGPT) 16 [iU]/L (Normal) Range: 0-32 [...] (Abnormal) Range: 65-99 :51 HgA1C , Office (66486) HgA1C , Office 6.7 % (Normal) Range: 4.6 - 7.1 3-Aen-987314:50 CALCIFEDIOL (83630) Comments: A courtesy copy of this report has been sent [phone].PATIENT WAS FASTINGPERFORMED BY: [employer]6370 Wireless DynamicsAt[facility] Health [facility] [id number] Vitamin D, 25-Hydroxy 40.7 ng/mL (Normal) Range: 30.0-100.0 Comments: Vitamin D deficiency has been defined by the Weed ofMedicine and an Endocrine Society practice guideline as alevel of serum 25-OH vitamin D less than 20 ng/mL (1,2).The Endocrine Society went on to further define vitamin Dinsufficiency as a level between 21 and 29 ng/mL (2).1. IOM (Weed of Medicine). 2010. Dietary reference intakes for calcium and D. [place]: The National Academies Press.2. Mira MF, Rosette LOPEZ, Tommy SWAIN, et al. Evaluation, treatment, and prevention of vitamin D deficiency: an Endocrine Society clinical practice guideline. JCEM. 2010; 96(7):1911-30. 0-Gto-164041:50 PTH (PARATHORMONE) (15185) Comments: A courtesy copy of this report has been sent [phone].PATIENT WAS FASTINGPERFORMED BY: [employer]6370 Wireless DynamicsAt[facility] [id number] PTH, Intact 20 pg/mL (Normal) Range: 15-65 3-Uew-901636:50 MICROALBUMIN: CREATININE RATIO Comments: A courtesy copy of this report has been sent [phone].PATIENT WAS FASTINGPERFORMED BY: [employer]6370 [facility] [id number] (71899) AND (09590) Microalb/Creat Ratio 4376.0 {mg/g_creat} (Abnormal) Range: 0.0-30.0 Microalbumin, Urine 3369.5 ug/mL (Normal) Comments: Results confirmed ondilution. Creatinine, Urine 77.0 mg/dL (Normal) 0-Jyq-973746:50 Renal function Panel Comments: A courtesy copy of this report has been sent [phone].PATIENT WAS FASTINGPERFORMED BY: [employer] Wmxadz0320 [facility] [id number] Information: FX DR. SANTANA [phone] (71575) Albumin, Serum 3.8 g/dL (Normal) Range: 3.5-4.8 [...] Glucose, Serum 203 mg/dL (Abnormal) Range: 65-99 3-Rbm-315646:50 Magnesium (35370) Comments: A courtesy copy of this report has been sent [phone].PATIENT WAS FASTINGPERFORMED BY: [facility] Gladwin6370 [facility] [id number] Magnesium, Serum 1.8 mg/dL (Normal) Range: 1.6-2.3 5-Nvf-185339:53 CBC with auto diff (35766) Comments: A courtesy copy of this report has been sent [phone].PATIENT WAS FASTINGPERFORMED BY: [facility]6370 [facility] [id number] Immature Grans (Abs) 0.0 {x10E3/uL} (Normal) Range: [...] {x10E3/uL} (Normal) Range: 3.4-10.8 :53 LIPID PANEL (98654) Comments: A courtesy copy of this report has been sent [phone].PATIENT WAS FASTINGPERFORMED BY: [facility]6370 [facility] [id number] LDL/HDL Ratio 1.2 {ratio_units} (Normal) Range: 0.0-3.2 Comments: LDL/HDL Ratio Men Women 1/2 Avg.Risk 1.0 1.5 Av g.Risk 3.6 3.2 2X Avg.Risk 6.2 5.0 3X Avg.Risk 8.0 6.1 LDL Cholesterol Calc 90 mg/dL (Normal) Range: 0-99 VLDL Cholesterol Cesar 13 mg/dL (Normal) Range: 5-40 HDL Cholesterol 76 mg/dL (Normal) Triglycerides 67 mg/dL (Normal) Range: 0-149 Cholesterol, Total 179 mg/dL (Normal) Range: 100-199 1-Ppr-661822:53 METABOLIC PANEL, COMPREHENSIVE Comments: A courtesy copy of this report has been sent [phone].PATIENT WAS FASTINGPERFORMED BY: [employer]oa[employer]la Lcshtu5841 [facility] [id number] (81806) ALT (SGPT) 11 [iU]/L (Normal) Range: 0-32 [...] (Abnormal) Range: 65-99 :57 HgA1C , Office (20856) HgA1C , Office 7.1 % (Normal) Range: 4.6 - 7.1 :09 LIPID PANEL (76804) Comments: PATIENT WAS FASTINGPERFORMED BY: LabContentlyRoosevelt General HospitalRjierb5686 [facility] [id number] LDL/HDL Ratio 1.3 {ratio_units} (Normal) Range: 0.0-3.2 [...] PANEL, COMPREHENSIVE Comments: PATIENT WAS FASTINGPERFORMED BY: LabCoMarlton Rehabilitation HospitalSrbgsn5613 [facility] [id number] (45241) ALT (SGPT) 12 [iU]/L (Normal) Range: 0-32 [...] (Abnormal) Range: 65-99 :50 HgA1C , Office (47401) HgA1C , Office 6.7 % (Normal) Range: 4.6 - 7.1 :25 Magnesium, Serum 1.9 mg/dL (Normal) Comments: PATIENT WAS FASTINGPERFORMED BY: LabContently Awzrol2783 [address] RoadDublin [place] [id number] Range: 1.6-2.3 :25 Microalb/Creat Ratio, Randm Ur Comments: PATIENT WAS FASTINGPERFORMED BY: LabContentlyrp Ngxyle3093 [address] RoadDublin [place] [id number] Microalb/Creat Ratio 2652.0 {mg/g_creat} Range: 0.0-30.0 (Abnormal) Microalbumin, Urine 2482.3 ug/mL (Normal) Comments: Results confirmed ondilution. Creatinine, Urine 93.6 mg/dL (Normal) PTH, Intact 26 pg/mL (Normal) Comments: PATIENT WAS FASTINGPERFORMED BY: LabContently Oelijj7070 [address] RoadDublin [place] [id number] :25 Range: 15-65 :25 Renal Panel (10) Comments: PATIENT WAS FASTINGPERFORMED BY: LabContentlyrp Hysjlw7789 [address] RoadDublin [place] [id number] Phosphorus, Serum 4.3 mg/dL (Normal) Range: 2.5-4.5 :25 Thyroxine (T4) Free, Direct, S Comments: PATIENT WAS FASTINGPERFORMED BY: [facility] Audslj7126 [address] RoadDublin [place] [id number] T4,Free(Direct) 1.08 ng/dL (Normal) Range: 0.82-1.77 : TSH 2.980 {uIU/mL} Comments: PATIENT WAS FASTINGPERFORMED BY: LabContently Gbunka4268 [address] RoadDublin [place] [id number] 25 (Normal) Range: 0.450-4.500 : Vitamin D, 25-Hydroxy 37.1 ng/mL (Normal) Comments: PATIENT WAS FASTINGPERFORMED BY: [employer]oa[employer]la Bimrmh8128 [facility] [id number] 25 Range: 30.0-100.0 Comments: Vitamin D deficiency has been defined by the Weed ofMedicine and an Endocrine Society practice guideline as alevel of serum 25-OH vitamin D less than 20 ng/mL (1,2).The Endocrine Society went on to further define vitamin Dinsufficiency as a level between 21 and 29 ng/mL (2).1. IOM (Weed of Medicine). 2010. Dietary reference intakes for calcium and D. [place]: The National Academies Press.2. Mira MF, Rosette LOPEZ, Tommy SWAIN, et al. Evaluation, treatment, and prevention of vitamin D deficiency: an Endocrine Society clinical practice guideline. JCEM. 2010; 96(7):1911-30. :25 CBC W/AUTO DIFF WBC (64843) Comments: PATIENT WAS FASTINGPERFORMED BY: Koa.la Heymdb5811 [facility] [id number] Immature Grans (Abs) 0.0 {x10E3/uL} (Normal) Range: [...] PANEL, COMPREHENSIVE Comments: PATIENT WAS FASTINGPERFORMED BY: LabCoMarlton Rehabilitation HospitalZemcni0538 [facility] [id number]; non- emergent till apt (38726) ALT (SGPT) 10 [iU]/L (Normal) Range: 0-32 [...] mg/dL (Abnormal) Range: 65-99 :25 LIPID PANEL (11742) Comments: PATIENT WAS FASTINGPERFORMED BY: [facility]6370 [facility] [id number] LDL/HDL Ratio 0.9 {ratio_units} (Normal) Range: 0.0-3.2 Comments: LDL/HDL Ratio Men Women 1/2 Avg.Risk 1.0 1.5 Av g.Risk 3.6 3.2 2X Avg.Risk 6.2 5.0 3X Avg.Risk 8.0 6.1 LDL Cholesterol Calc 65 mg/dL (Normal) Range: 0-99 VLDL Cholesterol Cesar 19 mg/dL (Normal) Range: 5-40 HDL Cholesterol 75 mg/dL (Normal) Triglycerides 93 mg/dL (Normal) Range: 0-149 Cholesterol, Total 159 mg/dL (Normal) Range: 100-199 06-Fxv-792768:54 HgA1C , Office (49847) HgA1C , Office 6.6 % (Normal) Range: 4.6 - 7.1 67-Irn-963778:1 Magnesium, Serum 2.1 mg/dL (Normal) Comments: PATIENT WAS FASTINGPERFORMED BY: [facility]6370 [facility] [id number] 2 Range: 1.6-2.3 86-Qsm-465837:12 Microalb/Creat Ratio, Randm Ur Comments: PATIENT WAS FASTINGPERFORMED BY: [facility] [place] [address] [id number] Microalb/Creat Ratio 1863.4 {mg/g_creat} (Abnormal) Range: 0.0-30.0 Microalbumin, Urine 1416.2 ug/mL (Normal) Comments: Results confirmed ondilution. Creatinine, Urine 76.0 mg/dL (Normal) 64-Wta-705805:12 Microscopic Examination Comments: PATIENT WAS FASTINGPERFORMED BY: [facility]6370 [facility] [id number] Bacteria None seen (Normal) Mucus Threads Present (Normal) Cast Type Hyaline casts (Normal) Casts Present {/lpf} (Abnormal) Epithelial Cells (non 0-10 {/hpf} Range: 0 - 10 renal) (Normal) RBC 3-10 {/hpf} Range: 0 - 2 (Abnormal) WBC 6-10 {/hpf} Range: 0 - 5 (Abnormal) PTH, Intact 36 pg/mL (Normal) Comments: PATIENT WAS FASTINGPERFORMED BY: [employer]la Bkfmuy6502 [facility] [id number] 0:12 Range: 15-65 Vitamin D, 25-Hydroxy 42.9 ng/mL (Normal) Comments: PATIENT WAS FASTINGPERFORMED BY: Pop[employer] Plvqnn5840 [facility] [id number] 0:12 Range: 30.0-100.0 Comments: Vitamin D deficiency has been defined by the Weed ofMedicine and an Endocrine Society practice guideline as alevel of serum 25-OH vitamin D less than 20 ng/mL (1,2).The Endocrine Society went on to further define vitamin Dinsufficiency as a level between 21 and 29 ng/mL (2).1. IOM (Weed of Medicine). 2010. Dietary reference intakes for calcium and D. [place]: The National Academies Press.2. Mira MF, Rosette [place], Tommy SWAIN, et al. Evaluation, treatment, and prevention of vitamin D deficiency: an Endocrine Society clinical practice guideline. JCEM. 2010; 96(7):1911-30. 32-Brh-066051:12 URINALYSIS, W/ MICRO (81799) Comments: PATIENT WAS FASTINGPERFORMED BY: [facility] Terhwb6717 [facility] [id number] Microscopic Examination See below: (Normal) Comments: Microscopic was indicated and was performed. Nitrite, Urine Negative (Normal) Urobilinogen,Semi-Qn 0.2 mg/dL (Normal) Range: 0.2-1.0 Bilirubin Negative (Normal) Occult Blood Negative (Normal) Ketones Negative (Normal) Glucose Negative (Normal) Protein 4+ (Abnormal) WBC Esterase Trace (Abnormal) Appearance Clear (Normal) Urine-Color Yellow (Normal) pH 6.0 (Normal) Range: 5.0-7.5 Specific [place] 1.015 (Normal) Range: 1.005-1.030 35-Szt-397634:12 CBC W/AUTO DIFF WBC (48087) Comments: PATIENT WAS FASTINGPERFORMED BY: Koa.laMarlton Rehabilitation HospitalUkkalg7880 [facility] [id number] Immature Grans (Abs) 0.0 {x10E3/uL} (Normal) Range: [...] 3.77-5.28 WBC 6.2 {x10E3/uL} (Normal) Range: 3.4-10.8 66-Inn-843398:12 METABOLIC PANEL, COMPREHENSIVE Comments: PATIENT WAS FASTINGPERFORMED BY: [facility] HospitalContentlyMarlton Rehabilitation HospitalStxygc3682 [facility] [id number] (35365) ALT (SGPT) 14 [iU]/L (Normal) Range: 0-32 [...] Glucose, Serum 154 mg/dL (Abnormal) Range: 65-99 45-Paz-653413:12 LIPID PANEL (78814) Comments: PATIENT WAS FASTINGPERFORMED BY: [facility]6370 [facility] [id number] LDL/HDL Ratio 0.7 {ratio_units} (Normal) Range: 0.0-3.2 Comments: LDL/HDL Ratio Men Women 1/2 Avg.Risk 1.0 1.5 Av g.Risk 3.6 3.2 2X Avg.Risk 6.2 5.0 3X Avg.Risk 8.0 6.1 LDL Cholesterol Calc 49 mg/dL (Normal) Range: 0-99 VLDL Cholesterol Cesar 14 mg/dL (Normal) Range: 5-40 HDL Cholesterol 75 mg/dL (Normal) Triglycerides 68 mg/dL (Normal) Range: 0-149 Cholesterol, Total 138 mg/dL (Normal) Range: 100-199 95-Dkg-205525:50 HgA1C , Office (89774) HgA1C , Office 6.7 % (Normal) Range: 4.6 - 7.1 51-Fjq-835761:36 VITAMIN B-12 (CYANOCOBALAMIN) Comments: PATIENT WAS FASTINGPERFORMED BY: [address] [id number] (78021) Vitamin B12 802 pg/mL (Normal) Range: 211-946 18-Nfd-339027:36 LIPID PANEL (56215) Comments: PATIENT WAS FASTINGPERFORMED BY: [facility] [place] [address] [id number] LDL/HDL Ratio 0.8 {ratio_units} (Normal) Range: 0.0-3.2 [...] Cholesterol, Total 161 mg/dL (Normal) Range: 100-199 61-Iqb-569573:36 LDH (LD) (LACTATE DEHYDROGENASE) Comments: PATIENT WAS FASTINGPERFORMED BY: [facility]6370 [facility] [id number] (09779) LDH 217 [iU]/L (Normal) Range: 119-226 67-Wgk-964137:36 CBC W/AUTO DIFF WBC (94548) Comments: PATIENT WAS FASTINGPERFORMED BY: [facility]6370 [facility] [id number] Immature Grans (Abs) 0.0 {x10E3/uL} (Normal) Range: [...] 3.77-5.28 WBC 10.6 {x10E3/uL} (Normal) Range: 3.4-10.8 51-Bjq-632679:36 METABOLIC PANEL, COMPREHENSIVE Comments: PATIENT WAS FASTINGPERFORMED BY: LabCoMarlton Rehabilitation HospitalBlsfnm5551 [facility] [id number] (00694) ALT (SGPT) 15 [iU]/L (Normal) Range: 0-32 [...] Glucose, Serum 137 mg/dL (Abnormal) Range: 65-99 38-Uso-717756:36 TSH (66608) Comments: PATIENT WAS FASTINGPERFORMED BY: HYGIEIA LabRoomorama Oweoxp0071 [facility] [id number] TSH 0.560 {uIU/mL} (Normal) Range: 0.450-4.500 33-Yzk-14908:02 Renal function Panel (51144) Comments: PATIENT WAS FASTINGPERFORMED BY: HYGIEIA LabCoI [employer] Gfqgzv8209 [facility] [id number] Albumin, Serum 3.7 g/dL (Normal) Range: 3.5-4.8 [...] 137 mg/dL (Abnormal) Range: 65-99 :02 MAGNESIUM (06246) Comments: PATIENT WAS FASTINGPERFORMED BY: BioActorAt[facility] Health [facility] [id number] Magnesium, Serum 2.2 mg/dL (Normal) Range: 1.6-2.3 :02 MICROALBUMIN: CREATININE RATIO Comments: PATIENT WAS FASTINGPERFORMED BY: BioActorAt[facility] Health [facility] [id number] (66524) AND (11189) Microalb/Creat Ratio 2038.7 {mg/g_creat} (Abnormal) Range: 0.0-30.0 Microalbumin, Urine 1223.2 ug/mL (Normal) Comments: Results confirmed ondilution. Creatinine, Urine 60.0 mg/dL (Normal) :02 CBC WITH MANUAL DIFF Comments: PATIENT WAS FASTINGPERFORMED BY: Decisiv70 [place] [facility] HospitalLeanplumAtrium Health [facility] Hospital [id number] Information: [id number] (61728) Immature Grans (Abs) 0.0 {x10E3/uL} (Normal) Range: [...] {x10E3/uL} (Normal) Range: 3.4-10.8 :02 HGB A1C (36108) Comments: PATIENT WAS FASTINGPERFORMED BY: [employer]6370 [facility] [id number] Hemoglobin A1c 6.4 % (Abnormal) Range: 4.8-5.6 Comments: . Pre-diabetes: 5.7 - 6.4 Diabetes: >6.4 Glycemic control for adults with diabetes: <7.0 :02 Lipid Panel (23086) Comments: PATIENT WAS FASTINGPERFORMED BY: [employer] Cwndnv9452 [facility] [id number] LDL/HDL Ratio 1.1 {ratio_units} (Normal) Range: 0.0-3.2 [...] Cholesterol, Total 160 mg/dL (Normal) Range: 100-199 50-Wyb-629888:03 HgA1C , Office (61260) HgA1C , Office 6.1 % (Normal) Range: 4.6 - 7.1 :24 CBC W/AUTO DIFF WBC Comments: PATIENT WAS FASTINGPERFORMED BY: LabCoMarlton Rehabilitation HospitalTjqfxp5712 [facility] [id number] Information: [id number] (90099) Immature Grans (Abs) 0.0 {x10E3/uL} (Normal) Range: [...] CREATININE RATIO Comments: PATIENT WAS FASTINGPERFORMED BY: Koa.laMarlton Rehabilitation HospitalSnngbs8267 [facility] [id number] (15088) AND (94366) Microalb/Creat Ratio 1223.8 {mg/g_creat} (Abnormal) Range: 0.0-30.0 Microalbumin, Urine 1012.1 ug/mL (Abnormal) Range: 0.0-17.0 Comments: Results confirmed ondilution. Creatinine, Urine 82.7 mg/dL (Normal) Range: 15.0-278.0 :24 METABOLIC PANEL, COMPREHENSIVE Comments: PATIENT WAS FASTINGPERFORMED BY: Koa.laMarlton Rehabilitation HospitalGgzodx5275 [facility] [id number] (59850) ALT (SGPT) 12 [iU]/L (Normal) Range: 0-32 [...] mg/dL (Abnormal) Range: 65-99 :24 LIPID PANEL (96598) Comments: PATIENT WAS FASTINGPERFORMED BY: LabCoMarlton Rehabilitation HospitalUmgxaw5912 [facility] [id number] LDL/HDL Ratio 1.1 {ratio_units} (Normal) Range: 0.0-3.2 [...] Range: 100-199 :30 CBC W/Diff, Automated Comments: [facility] N[address]ug[address] [place], [address] Absolute Lymph 0.83 {X10_3/ul} (Normal) Range: 0.83-4.51 [...] (Normal) Range: 4.4-11.0 :30 Hemoglobin A1c Comments: [facility] Asgu[address]ugji[address] [place], [place], [id number](429) HGB A1C 6.1 % (Normal) Range: 4.2-6.3 26-Nrx-96961:30 Magnesium Comments: [facility] U[address]cm[address] [place], [place], [phone](011) MG 1.8 mg/dL (Normal) Range: 1.8-2.4 :30 Protein+Creatinine Ratio,Urine Comments: [facility] X[address] [place], [place], [id number](425) PROT:CRE RATIO 2121 {mg/g_CRE} (Abnormal) Range: 0-200 PROTEIN,UR.RAN. 164.2 mg/dL (Abnormal) UR CREAT 77.40 mg/dL (Normal) :30 Renal Profile Comments: [facility] [address] [place], [place], [phone](934) CO2 27.0 mmol/L (Normal) Range: 21.0-32.0 CL [...] 126 mg/dLsuggests DIABETES MELLITUS per A.D.A. criteria. 65-Ycw-97718:00 24 HR UR Creatinine Clearance Comments: [facility] Ndknmvmfse6798 [facility]. [place], [place], [phone] CREAT CLEARANCE 24 ml/min (Abnormal) Range: 100-200 URINE CREAT 20.6 mg/dL (Normal) EST GFR - AA 38 mL/min (Abnormal) Comments: GFR Calc EST GFR 31 mL/min (Abnormal) Comments: Non- GFR Calc SERUM CREAT 1.7 mg/dL (Abnormal) Range: 0.6-1.0 UR TOTAL VOLUME 2800 mL (Normal) UR COLLECT TIME 24.0 {HOURS} (Normal) 19-Hsn-06884:00 Protein, Urine 24HR Comments: [facility] Zzyjocywha4074 [facility]. [place], [place], [phone] 24hr UR PROTEIN 1178.8 {mg/24HR} (Abnormal) URINE PROTEIN 42.1 mg/dL (Abnormal) UR TOTAL VOLUME 2800 mL (Normal) UR COLLECT TIME 24.0 {HOURS} (Normal) 6-Nen-845116:29 Metabolic Panel, Basic Comments: PATIENT NOT FASTINGPERFORMED BY: LabCoMarlton Rehabilitation HospitalNpwkdu7103 [facility] [id number] Information: [id number] (02670) Calcium, Serum 9.3 mg/dL (Normal) Range: 8.7-10.3 [...] Basic Comments: tuesday; PATIENT NOT FASTINGPERFORMED BY: LabCoMarlton Rehabilitation HospitalUozjqr5034 [facility] [id number] Information: [id number] (64788) Calcium, Serum 9.0 mg/dL (Normal) Range: 8.7-10.3 [...] Glucose, Serum 149 mg/dL (Abnormal) Range: 65-99 87-Ltl-224550:32 HgA1C , Office (93068) HgA1C , Office 6.2 % (Normal) Range: 4.6 - 7.1 :31 Rapid Strep Test, Office (27466) Comments: neg Rapid Strep Test, Office Negative (Normal) 9-Vrk-554519:06 THROAT CULTURE (08334) Comments: PATIENT NOT FASTINGPERFORMED BY: CB [facility] Eyvsgk1126 [address] RoadDublin [place] [id number] Information: [id number] Result 1 RRF (Normal) Comments: Routine respiratory luis Upper Respiratory Culture Final report (Normal) :52 TSH (89052) Comments: PATIENT WAS FASTINGPERFORMED BY: CB [facility] Wqvetm5305 [address] RoadDublin [place] [id number] TSH 2.190 {uIU/mL} (Normal) Range: 0.450-4.500 :52 Vitamin D Hydroxy (47900) Comments: PATIENT WAS FASTINGPERFORMED BY: CB [facility] Kzpybs4257 [address] RoadDublin [place] [id number] Vitamin D, 25-Hydroxy 43.8 ng/mL (Normal) Range: 30.0-100.0 Comments: Vitamin D deficiency has been defined by the Weed ofMedicine and an Endocrine Society practice guideline as alevel of serum 25-OH vitamin D less than 20 ng/mL (1,2).The Endocrine Society went on to further define vitamin Dinsufficiency as a level between 21 and 29 ng/mL (2).1. IOM (Weed of Medicine). 2010. Dietary reference intakes for calcium and D. [place]: The National Academies Press.2. Mira MF, Rosette NC, Tommy SWAIN, et al. Evaluation, treatment, and prevention of vitamin D deficiency: an Endocrine Society clinical practice guideline. JCEM. 2010; 96(7):1911-30. :52 LIPID PANEL (26230) Comments: PATIENT WAS FASTINGPERFORMED BY: CB [facility] Koeiai[address] RoadDublin [place] [id number] LDL/HDL Ratio 1.3 {ratio_units} (Normal) Range: 0.0-3.2 [...] auto diff Comments: PATIENT WAS FASTINGPERFORMED BY: [facility]CoM[facility] Rehabilitation HospitalYiuzre8382 [facility] [id number] Information: [id number] (22690) Immature Grans (Abs) 0.0 {x10E3/uL} (Normal) Range: [...] PANEL, COMPREHENSIVE Comments: PATIENT WAS FASTINGPERFORMED BY: [facility]CoM[facility] HospitalDfwpuf4541 [facility] [id number] (09826) ALT (SGPT) 19 [iU]/L (Normal) Range: 0-32 [...] Glucose, Serum 127 mg/dL (Abnormal) Range: 65-99 2-Pup-726766:08 HgA1C , Office (23569) HgA1C , Office 6.4 % (Normal) Range: 4.6 - 7.1 2-Oef-480770:00 Creatinine Clearance Comments: PATIENT NOT FASTINGPERFORMED BY: [facility]6370 [facility] [id number] Information: [id number] S TART Creatinine Clearance 33 mL/min (Abnormal) Range: 88-128 Comments: The above range is based on 1.73 square meter average body surfacearea. Creatinine, Ur 24hr 642.0 {mg/24_hr} (Abnormal) Range: 800.0-1800.0 Creatinine, Urine 34.7 mg/dL (Normal) Range: 15.0-278.0 eGFR If Africn Am 43 mL/min/1.73 (Abnormal) eGFR If NonAfricn Am 37 mL/min/1.73 (Abnormal) Creatinine, Serum 1.37 mg/dL (Abnormal) Range: 0.57-1.00 1-Hbq-926080:00 Protein Total, Qn, 24-Hr Comments: PATIENT NOT FASTINGPERFORMED BY: [facility] [id number] Urine Prot,24hr calculated 1309.8 {mg/24_hr} (Abnormal) Range: 30.0-150.0 Protein,Total,Urine 70.8 mg/dL (Abnormal) Range: 0.0-15.0 09-Oct-20149:01 CBC W/Diff, Automated Comments: Test performed at:[facility] Daphmoestx[address] [place] [address] Absolute Neut 3.1 {X10_3/uL} (Normal) [...] Range: 4.4-11.0 :01 Magnesium Comments: Test performed at:[facility] [address] [place] [address] MG 2.0 mg/dL (Normal) Range: 1.8-2.4 :01 Protein+Creatinine Ratio,Urine Comments: Test performed at:[facility] [address]aw[address] [place] [address] PROT:CRE RATIO 2232 {mg/g_CRE} (Abnormal) Range: 0-200 PROTEIN,UR.RAN. 160.3 mg/dL (Abnormal) UR CREAT 71.8 mg/dL (Normal) :01 Renal Profile Comments: Test performed at:[facility] [address] [place] [address]271 CO2 32.0 mmol/L (Normal) Range: 21.0-32.0 CL [...] mg/dL (Normal) Range: 70-110 :08 LIPID PANEL (44586) Comments: PATIENT WAS FASTINGPERFORMED BY: Koa.laMarlton Rehabilitation HospitalBclbvs3818 [facility] [id number] LDL/HDL Ratio 1.0 {ratio_units} (Normal) Range: 0.0-3.2 [...] METABOLIC PANEL, Comments: PATIENT WAS FASTINGPERFORMED BY: [facility]6370 [facility] [id number] Information: [id number] COMPREHENSIVE (79873) ALT (SGPT) 29 [iU]/L (Normal) Range: 0-32 [...] (Abnormal) Range: 65-99 :59 HgA1C , Office (24867) HgA1C , Office 6.5 % (Normal) Range: 4.6 - 7.1 :54 CBC W/AUTO DIFF WBC Comments: PATIENT WAS FASTINGPERFORMED BY: [facility]CoM[facility] HospitalNwcays0590 [facility] [id number] Information: [id number] (82048) Immature Grans (Abs) 0.0 {x10E3/uL} (Normal) Range: [...] COMPREHENSIVE Comments: PATIENT WAS FASTINGPERFORMED BY: [facility] Fesgnq7879 [facility] [id number]; non- emergent till apt (24271) ALT (SGPT) 13 [iU]/L (Normal) Range: 0-32 [...] mg/dL (Abnormal) Range: 65-99 :54 LIPID PANEL (92776) Comments: PATIENT WAS FASTINGPERFORMED BY: [facility]CoM[facility] Rehabilitation HospitalBisdeg1757 [facility] [id number] LDL/HDL Ratio 1.1 {ratio_units} (Normal) Range: 0.0-3.2 [...] (Normal) Range: 100-199 :29 HgA1C , Office (13537) HgA1C , Office 6.6 % (Normal) Range: 4.6 - 7.1 :12 CBC W/Diff, Automated Comments: Test performed at:[facility] Sffjmsrase[address] [place], [place] [address] ; handled by Dr. Santana Absolute Lymph [...] Range: 4.4-11.0 :12 Magnesium Comments: Test performed at:[facility] I[address] [place] [address] MG 2.0 mg/dL (Normal) Range: 1.8-2.4 :12 Microalb:Creat Ratio,Random UR Comments: Test performed at:[facility] [address] [place] [address] ; Dr. Angelo LING:CREAT 1483.0 {mg/g_CRE} (Abnormal) MICROALBUMIN,UR 918.0 mg/L (Normal) UR CREAT 61.9 mg/dL (Normal) :12 Renal Profile Comments: Test performed at:[facility] [address] [place] [address] 63399 CO2 29.0 mmol/L (Normal) Range: 21.0-32.0 CL [...] 126 mg/dLsuggests DIABETES MELLITUS per A.D.A. criteria. 14-Qjs-904344:20 LIPID PANEL (56834) Comments: PATIENT WAS FASTINGPERFORMED BY: Koa.laMarlton Rehabilitation HospitalDfhhxm2686 [facility] [id number] LDL/HDL Ratio 1.0 {ratio_units} (Normal) Range: 0.0-3.2 [...] Cholesterol, Total 151 mg/dL (Normal) Range: 100-199 15-Wbo-612707:20 METABOLIC PANEL, Comments: PATIENT WAS FASTINGPERFORMED BY: [facility]CoM[facility] HospitalRvrjyz3434 [facility] [id number] Information: [id number] COMPREHENSIVE (84105) ALT (SGPT) 16 [iU]/L (Normal) Range: 0-32 [...] Glucose, Serum 148 mg/dL (Abnormal) Range: 65-99 76-Xcm-786131:21 CREATININE CLEARANCE Comments: PATIENT WAS FASTINGPERFORMED BY: [facility]CoM[facility] HospitalDnhzcv1404 [facility] [id number] Information: [id number] START 04/02/14@9AM FINISH 04/03/14 6:00 AM (49742) Creatinine Clearance 42 mL/min (Abnormal) Range: 88-128 Comments: The above range is based on 1.73 square meter average body surfacearea. Creatinine, Ur 24hr 812.3 {mg/24_hr} (Normal) Range: 800.0-1800.0 Creatinine, Urine 28.5 mg/dL (Normal) Range: 15.0-278.0 eGFR If Africn Am 45 mL/min/1.73 (Abnormal) eGFR If NonAfricn Am 39 mL/min/1.73 (Abnormal) Creatinine, Serum 1.33 mg/dL (Abnormal) Range: 0.57-1.00 17-Fyc-732277:21 Total Protein,24 Hour Urine Comments: PATIENT WAS FASTINGPERFORMED BY: [facility]6370 [facility] [id number] (47545) Prot,24hr calculated 1559.0 {mg/24_hr} (Abnormal) Range: 30.0-150.0 Protein,Total,Urine 54.7 mg/dL (Abnormal) Range: 0.0-15.0 :57 LIPID PANEL (62445) Comments: PATIENT WAS FASTINGPERFORMED BY: [facility]6370 [facility] [id number] LDL/HDL Ratio 1.1 {ratio_units} (Normal) Range: 0.0-3.2 [...] Comments: PATIENT WAS FASTINGPERFORMED BY: [facility]6370 [facility] [id number] Information: [id number] (62411) Immature Grans (Abs) 0.0 {x10E3/uL} (Normal) Range: [...] COMPREHENSIVE Comments: PATIENT WAS FASTINGPERFORMED BY: [facility] Gvzmrd2316 [facility] [id number] (53832) ALT (SGPT) 10 [iU]/L (Normal) Range: 0-32 [...] Units: mg/dL AdultPerformed at: - [facility] [address] [id number] Director: Yousuf Bernardo PhD, Phone: [phone] C4 37 (Abnormal) Range: 9-36 0 [...] MANUAL DIFF Comments: PATIENT WAS FASTINGPERFORMED BY: [facility]CoM[facility] HospitalXvzhpd8347 [facility] [id number] Information: [id number] (88298) Immature Grans (Abs) 0.0 {x10E3/uL} (Normal) Range: [...] WAS FASTINGPERFORMED BY: [facility]win6370 [facility] [id number] (39057) ALT (SGPT) 16 [iU]/L (Normal) Range: 0-32 [...] Glucose, Serum 132 mg/dL (Abnormal) Range: 65-99 78-Skv-186687:53 CREATININE CLEARANCE Comments: PATIENT NOT FASTINGPERFORMED BY: [facility]CoM[facility] HospitalXjovfv0413 [facility] [id number] Information: [id number] START 10/30/13@8AM F INISH 10/31/13@8AM 2650ML (15107) Creatinine Clearance 44 mL/min (Abnormal) Range: 88-128 Comments: The above range is based on 1.73 square meter average body surfacearea. Creatinine, Ur 24hr 877.2 {mg/24_hr} (Normal) Range: 800.0-1800.0 Creatinine, Urine 33.1 mg/dL (Normal) Range: 15.0-278.0 eGFR If Africn Am 44 mL/min/1.73 (Abnormal) eGFR If NonAfricn Am 38 mL/min/1.73 (Abnormal) Creatinine, Serum 1.37 mg/dL (Abnormal) Range: 0.57-1.00 04-Dup-918276:53 Total Protein,24 Hour Urine Comments: PATIENT NOT FASTINGPERFORMED BY: ElationEMR [facility] [id number] (88645) Prot,24hr calculated 3458.3 {mg/24_hr} (Abnormal) Range: 30.0-150.0 Protein,Total,Urine 130.5 mg/dL (Abnormal) Range: 0.0-15.0 82-Wvu-332338:31 HgA1C , Office (72299) HgA1C , Office 6.4 % (Normal) Range: 4.6 - 7.1 04-Hai-858581:27 Microscopic Examination Comments: PATIENT WAS FASTINGPERFORMED BY: Decisiv70 [facility] [id number] Bacteria Few (Normal) Mucus Threads Present (Normal) Epithelial Cells (non renal) 0-10 {/hpf} (Normal) Range: 0 - 10 RBC 3-10 {/hpf} (Abnormal) Range: 0 - 2 WBC 6-10 {/hpf} (Abnormal) Range: 0 - 5 :32 LIPID PANEL (06083) Comments: PATIENT WAS FASTINGPERFORMED BY: Decisiv70 [facility] [id number] LDL/HDL Ratio 1.0 {ratio_units} (Normal) Range: 0.0-3.2 [...] CREATININE RATIO Comments: PATIENT WAS FASTINGPERFORMED BY: ElationEMR [facility] [id number] (09712) AND (40761) Microalb/Creat Ratio 1998.9 {mg/g_creat} (Abnormal) Range: 0.0-30.0 Creatinine, Urine 73.4 mg/dL (Normal) Range: 15.0-278.0 Microalbumin, Urine 1467.2 ug/mL (Abnormal) Range: 0.0-17.0 :32 URINALYSIS, W/ MICRO (83510) Comments: PATIENT WAS FASTINGPERFORMED BY: [facility]6370 [facility] [id number] Microscopic Examination See below: (Normal) Comments: Microscopic was indicated and was performed. Nitrite, Urine Negative (Normal) Urobilinogen,Semi-Qn 0.2 mg/dL (Normal) Range: 0.0-1.9 Bilirubin Negative (Normal) Occult Blood Trace (Abnormal) Ketones Negative (Normal) Glucose Negative (Normal) Protein 3+ (Abnormal) WBC Esterase Trace (Abnormal) Appearance Clear (Normal) Urine-Color Yellow (Normal) pH 6.5 (Normal) Range: 5.0-7.5 Specific [place] 1.015 (Normal) Range: 1.005-1.030 :32 CBC WITH MANUAL DIFF Comments: PATIENT WAS FASTINGPERFORMED BY: [facility]6370 [facility] [id number] Information: [id number] (60163) Immature Grans (Abs) 0.0 {x10E3/uL} (Normal) Range: [...] 3.77-5.28 WBC 3.7 {x10E3/uL} (Normal) Range: 3.4-10.8 67-Myi-86656:32 METABOLIC PANEL, COMPREHENSIVE Comments: PATIENT WAS FASTINGPERFORMED BY: [facility] Cbuxhl5970 [facility] [id number] (98718) ALT (SGPT) 16 [iU]/L (Normal) Range: 0-32 [...] B-12 (CYANOCOBALAMIN) Comments: PATIENT WAS FASTINGPERFORMED BY: HYGIEIA LabSafetyTatFfxtvk9310 [facility] [id number] (66315) Vitamin B12 >1999 pg/mL (Abnormal) Range: 211-946 36-Ovk-586693:01 HgA1C , Office (27993) HgA1C , Office 6.4 % (Normal) Range: 4.6 - 7.1 :37 METABOLIC PANEL, COMPREHENSIVE Comments: PATIENT WAS FASTINGPERFORMED BY: HYGIEIA LabCoMelodeoVrvdvh1715 [facility] [id number] (81054) ALT (SGPT) 12 [iU]/L (Normal) Range: 0-32 [...] (Abnormal) Range: 65-99 :37 Vitamin D Hydroxy (61826) Comments: PATIENT WAS FASTINGPERFORMED BY: Decisiv70 [place] [facility] [id number] Vitamin D, 25-Hydroxy 47.4 ng/mL (Normal) Range: 30.0-100.0 Comments: Vitamin D deficiency has been defined by the Weed ofCleveland Clinic South Pointe Hospitalcine and an Endocrine Society practice guideline as alevel of serum 25-OH vitamin D less than 20 ng/mL (1,2).The Endocrine Society went on to further define vitamin Dinsufficiency as a level between 21 and 29 ng/mL (2).1. IOM (Weed of Medicine). 2010. Dietary reference intakes for calcium and D. [place]: The National Academies Press.2. Mira MF, Rosette [place], Tommy SWAIN, et al. Evaluation, treatment, and prevention of vitamin D deficiency: an Endocrine Society clinical practice guideline. JCEM. 2010; 96(7):1911-30. :37 LIPID PANEL (92997) Comments: PATIENT WAS FASTINGPERFORMED BY: HYGIEIA LabRoomorama Lrmpmh0810 [facility] [id number] LDL/HDL Ratio 1.2 {ratio_units} (Normal) Range: 0.0-3.2 [...] DIFF Comments: PATIENT WAS FASTINGPERFORMED BY: EVE Koa.lasyl EmersonRsyfnd8830 [facility] [id number] Information: [id number] (31883) Immature Grans (Abs) 0.0 {x10E3/uL} (Normal) Range: [...] Qn, 24-Hr Comments: PATIENT NOT FASTINGPERFORMED BY: CB Jingit [facility] [id number] Information: ADD [id number] AND DRAW FEE 99 6660 VOLUME 2600 164LBS 5' '3 Urine Prot,24hr calculated 920.4 {mg/24_hr} Range: 30.0-150.0 (Abnormal) Protein,Total,Urine 35.4 mg/dL Range: 0.0-15.0 (Abnormal) : Written Authorization WAR (Normal) Comments: PATIENT NOT FASTINGPERFORMED BY: [facility]6370 [facility] [id number] Comments: Written Authorization Received.Authorization received from Chiqui BRICEÑO LPN [id number] by Marleen Sharma :52 Metabolic Panel, Basic Comments: PATIENT NOT FASTINGPERFORMED BY: [place] 7827770 [facility] [id number] Information: ADD [id number] AND DRAW FEE 99 6660 VOLUME 2600 164LBS 5' '3 (94774) Calcium, Serum 9.7 mg/dL (Normal) Range: 8.6-10.2 [...] mg/dL (Abnormal) Range: 65-99 :52 CREATININE CLEARANCE (83487) Comments: PATIENT NOT FASTINGPERFORMED BY: [facility]6370 [facility] [id number] Creatinine Clearance 46 mL/min (Abnormal) Range: 88-128 Comments: The above range is based on 1.73 square meter average body surfacearea. Creatinine, Ur 24hr 899.6 {mg/24_hr} (Normal) Range: 800.0-1800.0 Creatinine, Urine 34.6 mg/dL (Normal) Range: 15.0-278.0 :52 24 hour urine for Protein Comments: PATIENT NOT FASTINGPERFORMED BY: [facility].laM[facility] Rehabilitation HospitalHnznts6506 [facility] [id number] (43853) Microalb/Creat Ratio 695.4 {mg/g_creat} (Abnormal) Range: 0.0-30.0 Microalbumin, Urine 240.6 ug/mL (Abnormal) Range: 0.0-17.0 :13 HgA1C , Office (48153) HgA1C , Office 6.3 % (Normal) Range: 4.6 - 7.1 3-Usv-893489:01 Blood Glucose , Office (56967) Blood Glucose , Office 162 (Normal) 73-Bcn-760882:02 Microscopic Examination Comments: PATIENT NOT FASTINGPERFORMED BY: [facility].laM[facility] Rehabilitation HospitalOzgewd3504 [facility] [id number] Bacteria Few (Normal) Mucus Threads Present (Normal) [...] Hebert M.D.October 19, 2012 at 2:42:14 PM [id number] Signed GP/GP If you are the referring physician and would like to [facility] theradiologist who provided this interpretation, please contact Yasmany Pond at [phone]. If this radiologist is unavailable, youwill be directed to another radiologist to assist. If y ou are a patient with a question regarding this report, pleasecontactyour referring physician directly. Professional Interpretation Provided By: [employer], Phone , These documents contain legally protected [...] destructionofthese documents. Dictated on 10/19/122 by Singh MANN,JasbirrieleTranscribed on 10/19/121442 by ITS IMPORTSign by Singh MANN,Misael on 10/19/121443 Sign by: Misael Hebert MD 37-Oir-513228:59 TSH (46583) Comments: PATIENT WAS FASTINGPERFORMED BY: Popset Dbreti8929 [facility] [id number] TSH 1.230 {uIU/mL} (Normal) Range: 0.450-4.500 :59 LIPID PANEL (87474) Comments: PATIENT WAS FASTINGPERFORMED BY: [employer]6370 [facility] [id number] LDL/HDL Ratio 0.5 {ratio_units} (Normal) Range: 0.0-3.2 LDL Cholesterol Calc 47 mg/dL (Normal) Range: 0-99 Cholesterol, Total 149 mg/dL (Normal) Range: 100-199 HDL Cholesterol 91 mg/dL (Normal) Comments: According to ATP-III Guidelines, HDL-C >59 mg/dL is considered anegative risk factor for CHD. Triglycerides 57 mg/dL (Normal) Range: 0-149 VLDL Cholesterol Cesar 11 mg/dL (Normal) Range: 5-40 67-Hei-883151:02 URINALYSIS, W/ MICRO Comments: PATIENT NOT FASTINGPERFORMED BY: [employer] Fgigmk0703 [facility] [id number] Information: [id number] (51514) Microscopic Examination See below: (Normal) Nitrite, Urine Negative (Normal) Bilirubin Negative (Normal) Urobilinogen,Semi-Qn 0.2 mg/dL (Normal) Range: 0.0-1.9 Occult Blood Negative (Normal) Ketones Negative (Normal) Glucose Negative (Normal) Protein 3+ (Abnormal) WBC Esterase Negative (Normal) Appearance Clear (Normal) Urine-Color Yellow (Normal) pH 5.5 (Normal) Range: 5.0-7.5 Specific [place] 1.015 (Normal) Range: 1.005-1.030 79-Abz-037597:59 CBC WITH MANUAL DIFF Comments: PATIENT WAS FASTINGPERFORMED BY: [facility]CoM[facility] HospitalHshcfa7558 [facility] [id number] Information: [id number] (01623) Immature Grans (Abs) 0.0 {x10E3/uL} (Normal) Range: [...] 3.77-5.28 WBC 4.8 {x10E3/uL} (Normal) Range: 3.4-10.8 01-Qhh-018809:59 METABOLIC PANEL, COMPREHENSIVE Comments: PATIENT WAS FASTINGPERFORMED BY: [facility]CoM[facility] HospitalHwsnrv3001 [facility] [id number] (24398) ALT (SGPT) 14 [iU]/L (Normal) Range: 0-32 [...] Glucose, Serum 104 mg/dL (Abnormal) Range: 65-99 8-Etz-888116:37 HgA1C , Office (11887) HgA1C , Office 6.0 % (Normal) Range: 4.6 - 7.1 2-Lvg-052356:31 CRE CREAT 1.3 mg/dL (Abnormal) Range: 0.6-1.0 [...] Galan M.D.August 09, 2012 at 2:38:03 PM [phone] Signed PV/PV If you are the referring physician and would like to consult with theradiologist who provided this interpretation, please contact Donna Burnett M.D. at [phone]. If this radiologist is unavailable, youwillbe directed to another radiologist to assist. If you are a patient with a question regarding this report, pleasecontactyour referring physician evelyne cowan. Professional Interpretation Provided By: [employer], Phone , These documents contain legally protected [...] 08/09/12 1441 Sign by: Donna Martin MD 18-Tnc-057573:31 CBC with manual diff Comments: PATIENT NOT FASTINGPERFORMED BY: [facility]CoM[facility] HospitalFhafue8363 [facility] [id number] Information: [id number] (49137) Immature Grans (Abs) 0.0 {x10E3/uL} (Normal) Range: [...] 3.77-5.28 WBC 3.2 {x10E3/uL} (Abnormal) Range: 4.0-10.5 66-Inq-263473:31 Metabolic Panel, Comprehensive Comments: PATIENT NOT FASTINGPERFORMED BY: [facility]CoM[facility] HospitalUcnwor8578 [facility] [id number] (00890) ALT (SGPT) 19 [iU]/L (Normal) Range: 0-32 [...] mg/dL (Abnormal) Range: 65-99 :31 LIPID PANEL (15749) Comments: PATIENT WAS FASTINGPERFORMED BY: Decisiv70 [facility] [id number] LDL/HDL Ratio 0.8 {ratio_units} (Normal) Range: 0.0-3.2 [...] MANUAL DIFF Comments: PATIENT WAS FASTINGPERFORMED BY: [employer]6370 [facility] [id number] Information: [id number] (23327) Immature Grans (Abs) 0.0 {x10E3/uL} (Normal) Range: [...] COMPREHENSIVE Comments: PATIENT WAS FASTINGPERFORMED BY: [facility] Vjiqbz9868 [facility] [id number] (06448) ALT (SGPT) 22 [iU]/L (Normal) Range: 0-32 [...] (Abnormal) Range: 65-99 :45 HgA1C , Office (76958) HgA1C , Office 6.1 % (Normal) Range: [...] Galan M.D.February 02, 2012 at 5:10:18 PM [id number] Signed PV/PV If you are the referring physician and w sarahild like to consult with theradiologist who provided this interpretation, please contact Donna Burnett M.D. at [phone]. If this radiologist is unavailable, youwillbe directed to another radiol ogist to assist. If you are a patient with a question regarding this report, pleasecontactyour referring physician directly. Professional Interpretation Provided By: [employer], Phone ,Fa x [phone] These documents contain legally protected and confidential [...] 02/02/121713 S ign by: Donna Martin MD 86-Giy-966600:16 DEXA BONE DENSITY STUDY (HP) Radiology Report [...] Coronel M.D.January 20, 2012 at 2:43:46 PM [id number] Signed KERA/KERA If you ar e the [...] 01/20/12 1447 Sign by: David Coronel MD 33-Gcq-609162:15 BILAT SCRN DIGITAL & CAD Radiology Report [...] Coronel M.D.January 20, 2012 at 1:20:11 PM [id number] Signed KERA/KERA If you are the referring physician and would like to consult with theradiologist who provided this interpretation, please contact Yasmany Parnell at . If this radiologist is unavailable,youwill be directed to another radiologist to assist. If you are a patient with a question regarding this report, pleasecontactyour referring physician directly. Professional Interpretation Provided By: [employer], Phone , These documents contain legally protected [...] 01/20/12 1324 Sign by: David Coronel MD 4-Rqa-349680:56 PELVIC (NON ) Radiology Report See Note [...] Vuong M.D.January 10, 2012 at 8:39:09 PM [phone] Signed JOHNNY/JOHNNY If you are the referring physician and would like to consult with theradiologist who provided this inte rpretation, please contact Radha Vuong M.D. at [phone]. If this radiologist is unavailable, you will bedirected to another radiologist to assist. If you are a patient with a question regarding this r eport, pleasecontactyour referring physician directly. Professional Interpretation Provided By: [employer], Phone , PROCEDURE: ULTRASOUND OF THE FEMALE [...] Vuong M.D.January 10, 2012 at 8:40:07 PM [phone] Signed JOHNNY/JOHNNY If you are the referring physician and would like to consult with theradiologist who provided this interpretation, please contact Radha Vuong M.D. at [phone]. If this radiologist is unavailable, you will bedirected to another radiologist to assist. If you are a patient with a question regarding this report, pleasecontactyour referring ph ysician directly. Professional Interpretation Provided By: [employer], Phone , These documents contain legally protected [...] Dictated on 01/10/12 1309 by TATIANA VUONG MDHarlan ARH Hospital ribed on 01/11/12 1113 by ITS IMPORTSign by RADHA VUONG MD on 01/11/12 1114 Sign by: RADHA VUONG MD 54-Bnr-76938:35 MICROALBUMIN: CREATININE RATIO Comments: PATIENT WAS FASTINGPERFORMED BY: [employer]6370 [facility] [id number] (35678) AND (51212) Microalb/Creat Ratio 829.4 {mg/g_creat} (Abnormal) Range: 0.0-30.0 Microalbumin, Urine 437.1 ug/mL (Abnormal) Range: 0.0-17.0 Creatinine, Urine 52.7 mg/dL (Normal) Range: 15.0-278.0 :35 CBC WITH MANUAL DIFF Comments: PATIENT WAS FASTINGPERFORMED BY: [employer]6370 [facility] [id number] Information: [id number] (02531) Immature Grans (Abs) 0.0 {x10E3/uL} (Normal) Range: [...] PANEL, COMPREHENSIVE Comments: PATIENT WAS FASTINGPERFORMED BY: LabCoMarlton Rehabilitation HospitalVlnyxa6032 [facility] [id number] (89257) ALT (SGPT) 15 [iU]/L (Normal) Range: 0-32 [...] mg/dL (Abnormal) Range: 65-99 :35 LIPID PANEL (12297) Comments: PATIENT WAS FASTINGPERFORMED BY: Decisiv70 [facility] [id number] LDL/HDL Ratio 0.9 {ratio_units} (Normal) Range: 0.0-3.2 LDL Cholesterol Calc 72 mg/dL (Normal) Range: 0-99 HDL Cholesterol 83 mg/dL (Normal) Comments: According to ATP-III Guidelines, HDL-C >59 mg/dL is considered anegative risk factor for CHD. VLDL Cholesterol Cesar 18 mg/dL (Normal) Range: 5-40 Triglycerides 90 mg/dL (Normal) Range: 0-149 Cholesterol, Total 173 mg/dL (Normal) Range: 100-199 :15 HgA1C , Office (95188) HgA1C , Office 6.2 % (Normal) Range: 4.6 - 7.1 :30 CBC WITH MANUAL DIFF Comments: PATIENT WAS FASTINGPERFORMED BY: [employer]70 [facility] [id number] Information: [id number] (59447) Immature Grans (Abs) 0.0 {x10E3/uL} (Normal) Range: [...] 3.77-5.28 WBC 4.2 {x10E3/uL} (Normal) Range: 4.0-10.5 34-Tjj-30777:30 METABOLIC PANEL, COMPREHENSIVE Comments: PATIENT WAS FASTINGPERFORMED BY: LabCoMarlton Rehabilitation HospitalLtgiwj0603 [facility] [id number] (23008) ALT (SGPT) 19 [iU]/L (Normal) Range: 0-40 [...] mg/dL (Abnormal) Range: 65-99 :30 LIPID PANEL (86376) Comments: PATIENT WAS FASTINGPERFORMED BY: LabCoMarlton Rehabilitation HospitalEyiudk9987 [facility] [id number] LDL/HDL Ratio 0.9 {ratio_units} (Normal) Range: 0.0-3.2 [...] note reference interval change :48 Rapid Flu (29227 x 2) Influenza A Ag negative (Normal) [...] redmond M.D.November 05, 2011 at 3:25:08 PM [id number] Signed GP/GP If you are the referring physician and would like to consult with theradiologist who provided this interpretation, please contact Yasmany Pond at [phone]. If this radiologist is unavailable, youwill be directed to another radiologist to assist. If you are a patient with a question regarding this report, ple asecontactyour referring physician directly. Professional Interpretation Provided By: [employer], Phone , These documents contain legally protected [...] redmond M.D.November 05, 2011 at 3:25:08 PM [id number] Signed GP/GP If you are the referring physician and would like to consult with theradiologist who provided this interpretation, please contact Yasmany Pond at [phone]. If this radiologist is unavailable, youwill be directed to another radiologist to assist. If you are a patient with a question regarding this report, ple asecontactyour referring physician directly. Professional Interpretation Provided By: [employer], Phone , These documents contain legally protected [...] Singh MANN,Misael on 11/05/11 1552 Sign by: Singh MANN,Misael 80-Vop-579087:20 METABOLIC PANEL, Comments: PATIENT WAS FASTINGPERFORMED BY: LabCoM[facility] Rehabilitation HospitalLujlno2460 [facility] [id number] Information: [id number],2ND ORDER NO DRAW F [facility] (38410) ALT (SGPT) 31 [iU]/L (Normal) Range: 0-40 [...] Creatinine Clearance Comments: PATIENT WAS FASTINGPERFORMED BY: [facility] Gladwin6370 [facility] [id number] Information: 10/30@6AM 10/31@730AM Creatinine Clearance 58 mL/min [...] Qn, 24-Hr Comments: PATIENT WAS FASTINGPERFORMED BY: Koa.laMarlton Rehabilitation HospitalGnslit7697 [facility] [id number] Urine Prot,24hr calculated 1023.8 {mg/24_hr} (Abnormal) Range: 30.0-150.0 Protein,Total,Urine 52.5 mg/dL (Abnormal) Range: 0.0-15.0 :04 HgA1C , Office (51830) HgA1C , Office 6.1 % (Normal) Range: [...] regarding this repor t, please call our [id number] line @ Dictated on 07/27/11 1040 by GAYE PEREZ MD on 07/28/111224 by ITS IMPORTSign by GAYE PEREZ MD on 07/28/111224 Sign by: GAYE PEREZ MD :54 Vitamin D Hydroxy (72489) Comments: PATIENT WAS FASTINGPERFORMED BY: [employer]6370 Willoughby RoadYadkin Valley Community Hospitalin [place] [id number] Vitamin D, 25-Hydroxy 48.8 ng/mL (Normal) Range: 30.0-100.0 Comments: Vitamin D deficiency has been defined by the Weed ofMedicine and an Endocrine Society practice guideline as alevel of serum 25-OH vitamin D less than 20 ng/mL (1,2).The Endocrine Society went on to further define vitamin Dinsufficiency as a level between 21 and 29 ng/mL (2).1. IOM (Weed of Medicine). 2010. Dietary reference intakes for calcium and D. [place]: The National Academies Press.2. Mira MF, [place], Tommy SWAIN, et al. Evaluation, treatment, and prevention of vitamin D deficiency: an Endocrine Society clinical practice guideline. JCEM. 2010; 96(7):1911-30. :54 LIPID PANEL (54414) Comments: PATIENT WAS FASTINGPERFORMED BY: [place] [employer]6370 Wireless Dynamicsin [place] [id number] LDL/HDL Ratio 1.0 {ratio_units} (Normal) Range: 0.0-3.2 [...] MANUAL DIFF Comments: PATIENT WAS FASTINGPERFORMED BY: HYGIEIA [employer] Jbqhnp4068 [facility] [id number] Information: ADD [id number] AND DRAW FEE 99 8699 (87062) Immature Grans (Abs) 0.0 {x10E3/uL} (Normal) Range: [...] 3.77-5.28 WBC 4.3 {x10E3/uL} (Normal) Range: 4.0-10.5 76-Sfj-62603:54 METABOLIC PANEL, COMPREHENSIVE Comments: PATIENT WAS FASTINGPERFORMED BY: LabCoM[facility] Rehabilitation HospitalGspcvt3248 [facility] [id number] (72333) ALT (SGPT) 48 [iU]/L (Abnormal) Range: 0-40 [...] (Abnormal) Range: 65-99 :18 HgA1C , Office (04354) HgA1C , Office 6.1 % (Normal) Range: 4.6 - 7.1 :18 Blood Glucose , Office (52040) Blood Glucose , Office 103 (Normal) 80-Hbv-82712:00 ABDOMEN WITH AND W/O CONTRAST Radiology Report [...] radiologist regarding this report, please call our [id number] line @ Dictated on 03/18/11 1715 by Serge Pugh MDranscribed on 03/22/11 1401 by ITS IMPORTSign by Jeanette Hill MD on 03/22/11 1402 Sign by: Jeanette Pugh MD 61-Tsp-647218:29 SERUM CRE & GFR CREAT,SERUM 1.1 mg/dL (Abnormal) Range: 0.6-1.0 45-Oif-80814:00 BRAIN W/WO CONTRAST Radiology Report See Note [...] seen in the right frontal white 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 The [...] 03/02/11 173 Sign by: Donna Martin MD 46-Gby-36077:00 UPPER EXT. JOINT ONLY(ROUTINE) Radiology Report See [...] on 03/04/11 1035 Sign by: Ankur Duncan 06-Vbb-422954:08 SHOULDER,MIN 2 VIEWS Radiology Report See Note [...] 02/01/11 1021 Sign by: ALEJANDRO DRUMMOND DO 56-Hyr-476080:57 SINUS/FACIAL BONE Radiology Report See Note (Normal) [...] 01/19/11 1448 Sign by: Misael Hebert MD 73-Knl-25589:00 BRAIN W/WO CONTRAST Radiology Report See Note [...] addition, there is a small region of rewqocqthC6jgklcdfxys along the anterior margin of the mass, [...] on 01/19/111650 Sign by: GAYE PEREZ MD 98-Pac-82434:00 BRAIN/HEAD W/WO CONTRAST Radiology Report See Note [...] 01/19/11 1447 Sign by: Misael Hebert MD 02-Cyu-836172:08 BILAT SCRN DIGITAL & CAD Radiology Report [...] suspiciousa bnormality. Dictated on 01/18/11 1317 by Jf Hebert MDbed on 01/19/11 0848 by ITS IMPORTSign by Misael Hebert MD on 01/19/11 0849 Sign by: Misael Hebert MD 09-Jun-20119:20 MICROALBUMIN: CREATININE RATIO Comments: PATIENT NOT FASTINGPERFORMED BY: LabCoMarlton Rehabilitation HospitalEormil9482 [facility] [id number] (23972) AND (33444) Microalb/Creat Ratio 1028.4 {mg/g_creat} (Abnormal) Range: 0.0-30.0 Microalbumin, Urine 1341.0 ug/mL (Abnormal) Range: 0.0-17.0 Creatinine, Urine 130.4 mg/dL (Normal) Range: 15.0-278.0 :20 CBC WITH MANUAL DIFF (48594) Comments: PATIENT NOT FASTINGPERFORMED BY: LabCoMarlton Rehabilitation HospitalLnegrs7878 [facility] [id number] Immature Grans (Abs) 0.0 {x10E3/uL} (Normal) Range: [...] {x10E3/uL} (Normal) Range: 4.0-10.5 :20 LIPID PANEL (12370) Comments: PATIENT NOT FASTINGPERFORMED BY: Koa.laMarlton Rehabilitation HospitalIsgasd4186 [facility] [id number] LDL/HDL Ratio 0.9 {ratio_units} (Normal) Range: 0.0-3.2 [...] PANEL, COMPREHENSIVE Comments: PATIENT NOT FASTINGPERFORMED BY: [employer]la Ewtvfq8739 [facility] [id number] (49025) ALT (SGPT) 28 [iU]/L (Normal) Range: 0-40 [...] (Abnormal) Range: 65-99 :39 HgA1C , Office (24419) HgA1C , Office 6.5 % (Normal) Range: 4.6 - 7.1 :39 Blood Glucose , Office (93350) Blood Glucose , Office 128 (Normal) :19 CBC With Differential/Platelet Comments: PATIENT WAS FASTINGPERFORMED BY: LabCo Ozxnao3476 [facility] [id number] Immature Grans (Abs) 0.0 {x10E3/uL} (Normal) Range: [...] 3.80-5.10 WBC 5.6 {x10E3/uL} (Normal) Range: 4.0-10.5 9-Quk-307024:19 Comp. Metabolic Panel (14) Comments: PATIENT WAS FASTINGPERFORMED BY: LabCoMarlton Rehabilitation HospitalWuugii3583 [facility] [id number]; appt 01/11/11 ALT (SGPT) 18 [iU]/L (Normal) [...] Glucose, Serum 113 mg/dL (Abnormal) Range: 65-99 2-Tox-528853:19 Lipid Panel With LDL/HDL Comments: PATIENT WAS FASTINGPERFORMED BY: [employer]6370 [facility] [id number] Ratio LDL/HDL Ratio 1.0 {ratio_units} Range: 0.0-3.2 [...] 0.800 {uIU/mL} Comments: PATIENT WAS FASTINGPERFORMED BY: [employer] [facility] [id number] 2:19 (Normal) Range: 0.450-4.500 Vitamin D, 25-Hydroxy 44.0 ng/mL (Normal) Comments: PATIENT WAS FASTINGPERFORMED BY: [employer] Ipqowa5119 [facility] [id number] 2:19 Range: 32.0-100.0 Comments: Effective February 22, 2011 Vitamin D, 25-Hydroxy reference intervals will be changing to 30-100. .Recent studies consider the lower li sandra of 32.0 ng/mL to be athreshold for optimal health.Otf HAYES. J Nutr. 2004;135(2):317-22. :54 HgA1C , Office (71626) HgA1C , Office 6.6 % (Normal) Range: 4.6 - 7.1 :54 Blood Glucose , Office (23754) Blood Glucose , Office 134 (Normal) :40 Creatinine Clearance Comments: PERFORMED BY: Koa[employer]la Rfzchx2402 Wireless DynamicsAt[facility] [id number] Information: 10/07@7AM 10/08@3AM Creatinine Clearance 56 mL/min [...] Protein Total, Qn, 24-Hr Comments: PERFORMED BY: [employer]6370 Wireless DynamicsAt[facility] [id number] Urine Prot,24hr calculated 610.5 {mg/24_hr} (Abnormal) Range: 30.0-150.0 Protein,Total,Urine 40.7 mg/dL (Abnormal) Range: 0.0-15.0 :46 Vitamin D Hydroxy (98679) Comments: PATIENT WAS FASTINGPERFORMED BY: Koa.la Ecuhts5875 WilloughbySharethroughAtrium Health Pine[facility] [id number] Vitamin D, 25-Hydroxy 36.5 ng/mL (Normal) Range: 32.0-100.0 Comments: Recent studies consider the lower limit of 32.0 ng/mL to be athreshold for optimal health.Otf HAYES. J Nutr. 2004;135(2):317-22. :46 METABOLIC PANEL, COMPREHENSIVE Comments: PATIENT WAS FASTINGPERFORMED BY: [employer]70 Wireless DynamicsMediQuest Therapeutics [place] [id number] (28751) ALT (SGPT) 34 [iU]/L (Normal) Range: 0-40 [...] Glucose, Serum 116 mg/dL (Abnormal) Range: 65-99 6-Omf-995593:46 LIPID PANEL (79213) Comments: PATIENT WAS FASTINGPERFORMED BY: LabCoMarlton Rehabilitation HospitalAqxozt4413 [facility] [id number] LDL Cholesterol Calc 85 mg/dL (Normal) Range: 0-99 LDL/HDL Ratio 1.2 {ratio_units} (Normal) Range: 0.0-3.2 VLDL Cholesterol Cesar 28 mg/dL (Normal) Range: 5-40 HDL Cholesterol 69 mg/dL (Normal) Comments: According to ATP-III Guidelines, HDL-C >59 mg/dL is considered anegative risk factor for CHD. Cholesterol, Total 182 mg/dL (Normal) Range: 100-199 Triglycerides 141 mg/dL (Normal) Range: 0-149 9-Chw-722361:46 CBC WITH MANUAL DIFF Comments: PATIENT WAS FASTINGPERFORMED BY: LabMymichigan Medical Center Gladwin6370 [facility] [id number] Information: [id number]; appt 10/12/10 (29638) Immature Grans (Abs) 0.0 {x10E3/uL} (Normal) Range: [...] (Normal) Range: 4.0-10.5 :07 HgA1C , Office (95903) HgA1C , Office 6.6 % (Normal) Range: 4.6 - 7.1 :07 Blood Glucose , Office (91938) Blood Glucose , Office 114 (Normal) 86-Xgc-670432:00 Creatinine Clearance Comments: PERFORMED BY: Koa[employer]la Yldpss8750 [facility] HospitalLeanplumAt[facility] [id number] Information: 12/31@8AM 01/01@4AM Creatinine Clearance 48 mL/min [...] Creatinine, Serum 1.20 mg/dL (Abnormal) Range: 0.57-1.00 22-Fzu-345912:00 Protein Total, Qn, 24-Hr Comments: PERFORMED BY: [employer] Lnvdkq1548 [facility] [id number] Urine Prot,24hr calculated 1070.6 {mg/24_hr} (Abnormal) Range: 30.0-150.0 Protein,Total,Urine 79.3 mg/dL (Abnormal) Range: 0.0-15.0 80-Kqh-064248:48 BILAT SCRN DIGITAL & CAD Radiology Report See Note (Normal) Comments: Exam Number: [id number] MAMMOGRAPHY - BILATERAL SCREENING INDICATION:Routine annual screening [...] of attaching a ResultCode to this exam.ADDENDUM: [id number] HPBI/MDS Reported By: MISEAL HEBERT 75-Moi-271662:48 DEXA BONE DENSITY STUDY (HP) Radiology Report See Note (Normal) Comments: Exam Number: [id number] CLINICAL:This is a 69-year-old female patient with postmenopausal screening. EXAMINATION:DUAL ENERGY X-RAY ABSORPTIOMETRY / DEXA. TECHNIQUE:Bone Density Measurements (BMD) of lumb ar spine and bilateral hipswere obtained using a Inflection scanner.. COMPARISON:None. FINDINGS: Lumbar Spine (L1-L4): g/cm2 [...] Osteoporosis Foundation http://www.nof.org Reported By: MISAEL HEBERT 76-Fdp-015660:29 HgA1C , Office (81932) HgA1C , Office 6.5 % (Normal) Range: 4.6 - 7.1 17-Vnh-975758:29 Blood Glucose , Office (30338) Blood Glucose , Office 109 (Normal) 49-Aet-16270:05 CBC With Differential/Platelet Comments: PATIENT WAS FASTINGPERFORMED BY: LabCoMarlton Rehabilitation HospitalQszqja6834 [facility] [id number] Immature Grans (Abs) 0.0 {x10E3/uL} (Normal) Range: [...] 3.80-5.10 WBC 3.9 {x10E3/uL} (Abnormal) Range: 4.0-10.5 17-Qpc-07618:05 Comp. Metabolic Panel (14) Comments: PATIENT WAS FASTINGPERFORMED BY: LabCo Vytbye3623 [facility] [id number] ALT (SGPT) 20 [iU]/L (Normal) Range: 0-40 [...] With LDL/HDL Comments: PATIENT WAS FASTINGPERFORMED BY: Decisiv70 [facility]At[facility] [id number] Ratio HDL Cholesterol 54 mg/dL (Normal) Comments: [...] ng/mL (Normal) Comments: PATIENT WAS FASTINGPERFORMED BY: [employer] [facility] [id number] :05 Range: 32.0-100.0 Comments: Recent studies consider the lower limit of 32.0 ng/mL to be athreshold for optimal health.Otf HAYES. J Nutr. 2004;135(2):317-22. :41 SPLEEN (HP) Radiology Report See Note (Normal) Comments: Exam Number: [id number] ULTRASOUND OF THE SPLEEN A goal directed [...] Protein, 0.5 mg/L (Normal) Comments: PERFORMED BY: [employer]la Ighyyb6094 [facility] [id number] 10:54 Quant Range: 0.0-4.9 17-Jun-2009 Hemoglobin A1c 6.3 % (Abnormal) Comments: PERFORMED BY: [facility] Ogbbvp5834 [facility] [id number] 10:54 Range: 4.8-5.6 Comments: Increased risk for diabetes: 5.7 - 6.4Diabetes: >6.4Glycemic control for adults with diabetes: <7.0.Please note reference interval change 17-Jun-2009 Sedimentation 4 mm/h (Normal) Comments: PERFORMED BY: [employer] Bihndc5192 [facility] [id number] 10:54 Rate-Westergren Range: 0-30 17-Jun-2009 Vitamin B12 1372 pg/mL Comments: PERFORMED BY: [employer]70 [facility] [id number] 10:54 (Abnormal) Range: 211-911 Comments: Effective July 14, 2009, Vitamin B12 will bechanging to the [place] ECLIA methodology. Thereference interval will be changing to:211 - 946 pg/mL 17-Jun-2009 Vitamin D, 25-Hydroxy 37.7 ng/mL Comments: PERFORMED BY: [employer] Xvikjr1776 [facility] [id number] 10:54 (Normal) Range: 32.0-100.0 Comments: Recent studies consider the lower limit of 32.0 ng/mL to be athreshold for optimal health.Otf HAYES. J Nutr. 2004;135(2):317-22. 48-Pnn-016154:34 Vitamin D Hydroxy Comments: PATIENT NOT FASTINGPERFORMED BY: [facility]Select [facility] Djflmk5863 [facility] [id number] Information: [id number],2ND ORDER NO DRAW F EE (40505) Vitamin D, 25-Hydroxy 48.5 ng/mL (Normal) Range: 30.0-100.0 Comments: Vitamin D deficiency has been defined by the Weed ofMedicine and an Endocrine Society practice guideline as alevel of serum 25-OH vitamin D less than 20 ng/mL (1,2).The Endocrine Society went on to further define vitamin Dinsufficiency as a level between 21 and 29 ng/mL (2).1. IOM (Weed of Medicine). 2010. Dietary reference intakes for calcium and D. [place]: The National AcademThe Mother List Press.2. Mira MF, Rosette LOPEZ, Tommy SWAIN, et al. Evaluation, treatment, and prevention of vitamin D deficiency: an Endocrine Society clinical practice guideline. JCEM. 2010; 96(7):1911-30. :50 HgA1C , Office (47762) HgA1C , Office 6.7 % (Normal) Range: 4.6 - 7.1 :50 Blood Glucose , Office (72345) Blood Glucose , Office 117 (Normal) 48-Bzm-298529:12 CBC With Differential/Platelet Comments: PERFORMED BY: [facility] Gladwin6370 [facility] [id number] Information: 06/10@6AM3/10@330AM Hematology Comments: Note: (Normal) Comments: [...] 3.80-5.10 WBC 3.6 {x10E3/uL} (Abnormal) Range: 4.0-10.5 53-Wov-053327:12 Comp. Metabolic Panel (14) Comments: PERFORMED BY: [facility] Ophydl8091 [facility] [id number] Alkaline Phosphatase, S 68 [iU]/L (Normal) Range: [...] Glucose, Serum 124 mg/dL (Abnormal) Range: 65-99 49-Sbh-641417:12 Creatinine Clearance Comments: PERFORMED BY: [facility]ActorAt[facility] [id number] Creatinine Clearance 49 mL/min (Abnormal) Range: 88-128 Comments: The above range is based on 1.73 square meter average body surfacearea. Creatinine, Ur 24hr 800.0 {mg/24_hr} (Normal) Range: 800.0-1800.0 Creatinine, Urine 40.0 mg/dL (Normal) Range: 15.0-278.0 80-Kus-256022:12 Lipid Panel With LDL/HDL Comments: PERFORMED BY: [facility]ActorAt[facility] [id number] Ratio HDL Cholesterol 61 mg/dL (Normal) Comments: According to ATP-III Guidelines, HDL-C >59 mg/dL is considered anegative risk factor for CHD. LDL Cholesterol Calc 74 mg/dL (Normal) Range: 0-99 LDL/HDL Ratio 1.2 {ratio_units} (Normal) Range: 0.0-3.2 VLDL Cholesterol Cesar 17 mg/dL (Normal) Range: 5-40 Cholesterol, Total 152 mg/dL (Normal) Range: 100-199 Triglycerides 87 mg/dL (Normal) Range: 0-149 86-Jyy-090589:12 Protein Total, Qn, 24-Hr Comments: PERFORMED BY: garbsAtrium Health [facility] [id number] Urine Prot,24hr calculated 1172.0 {mg/24_hr} Range: 30.0-150.0 (Abnormal) Protein,Total,Urine 58.6 mg/dL (Abnormal) Range: 0.0-15.0 TSH 1.280 {uIU/mL} Comments: PERFORMED BY: TrustifiCoMarlton Rehabilitation HospitalWjxeas6698 [facility] [id number] 1:12 (Normal) Range: 0.450-4.500 :58 HgA1C , Office (22824) HgA1C , Office 6.0 % (Normal) Range: 4.6 - 7.1 :58 Blood Glucose , Office (95459) Blood Glucose , Office 113 (Normal) :03 CBC With Differential/Platelet Comments: PATIENT WAS FASTINGPERFORMED BY: TrustifiCoMarlton Rehabilitation HospitalLhojek7602 [facility] [id number] Baso (Absolute) 0.0 {x10E3/uL} (Normal) Range: 0.0-0.2 [...] 11.7-15.0 WBC 3.2 {x10E3/uL} (Abnormal) Range: 4.0-10.5 1-Ola-016656:03 Comp. Metabolic Panel (14) Comments: PATIENT WAS FASTINGPERFORMED BY: LabCoMarlton Rehabilitation HospitalAqyyeg5350 [facility] [id number] A/G Ratio 2.0 (Normal) Range: 1.1-2.5 Albumin, [...] Glucose, Serum 116 mg/dL (Abnormal) Range: 65-99 7-Udb-185617:03 Lipid Panel With LDL/HDL Comments: PATIENT WAS FASTINGPERFORMED BY: EVE [employer]70 Wireless DynamicsAtrium Health [facility] [id number] Ratio Cholesterol, Total 167 mg/dL (Normal) Range: [...] ng/mL (Normal) Comments: PATIENT WAS FASTINGPERFORMED BY: BioActorAt[facility] [id number] :03 Range: 32.0-100.0 Comments: Recent studies consider the lower limit of 32.0 ng/mL to be athreshold for optimal health.Otf HAYES. J Nutr. 2004;135(2):317-22. 80-Qwn-516441:32 Urinalysis, Office (02738) UA - BILIRUBIN Negative (Normal) UA - BLOOD Hemolyzed Trace (Normal) UA - GLUCOSE Negative (Normal) UA - KETONES Negative mg/dL (Normal) UA - LEUKOCYTE ESTERASE Negative (Normal) UA - NITRITE Negative (Normal) UA - PH 6.5 (Normal) UA - PROTEIN 300 mg/dL (Normal) UA - SPECIFIC GRAVITY 1.020 (Normal) URINE UROBILINGN JATINDER TIMED 2 mg/dL (Normal) 9-Nif-952697:19 URINE SETH CULTURE-JATINDER COL Comments: PATIENT NOT FASTINGClinical Information: SRC:UR ADD [id number] PERFORMED BY: [employer]R [facility] [id number] COUNT (68344) Result 1 ECV (Normal) Comments: Escherichia coli, [...] report (Normal) Culture,Comprehensiv e 09-Jan-20098:17 Urinalysis, Office (16876) UA - BILIRUBIN Negative (Normal) UA - BLOOD Hemolyzed Large (Normal) UA - GLUCOSE Negative (Normal) UA - KETONES Negative mg/dL (Normal) UA - LEUKOCYTE ESTERASE Moderate (Normal) UA - NITRITE Negative (Normal) UA - PH 7.0 (Normal) UA - PROTEIN 300 mg/dL (Normal) UA - SPECIFIC GRAVITY 1.020 (Normal) URINE UROBILINGN JATINDER TIMED 2 mg/dL (Normal) 1-Hgv-176527:05 Comp. Metabolic Panel (14) Comments: PATIENT WAS FASTINGPERFORMED BY: [facility] Biwlxw9178 [facility] [id number] A/G Ratio 1.7 (Normal) Range: 1.1-2.5 Albumin, [...] Panel (7) Comments: PATIENT WAS FASTINGPERFORMED BY: [employer] [facility] [id number] Bilirubin, Direct 0.12 mg/dL (Normal) Range: 0.00-0.40 :05 Lipid Panel With LDL/HDL Comments: PATIENT WAS FASTINGPERFORMED BY: [employer] [facility] [id number] Ratio Cholesterol, Total 170 mg/dL (Normal) Range: [...] mg/dL (Normal) Comments: PATIENT WAS FASTINGPERFORMED BY: [employer] Jrpzyd0127 [facility] [id number] :05 Range: 2.5-4.5 PTH, Intact 19 pg/mL (Normal) Comments: PATIENT WAS FASTINGPERFORMED BY: [facility]6370 [facility] [id number] :05 Range: 15-65 Vitamin D, 25-Hydroxy 38.9 ng/mL (Normal) Comments: PATIENT WAS FASTINGPERFORMED BY: [facility]6370 [facility] [id number] :05 Range: 32.0-100.0 Comments: Recent studies consider the lower limit of 32.0 ng/mL to be athreshold for optimal health.Otf HAYES. J Nutr. 2004;135(2):317-22. :40 HgA1C , Office (06630) HgA1C , Office 6.0 % (Normal) Range: 4.6 - 7.1 :40 Blood Glucose , Office (12324) Blood Glucose , Office 109 (Normal) :42 CBC With Differential/Platelet Comments: PATIENT WAS FASTINGPERFORMED BY: [facility]6370 [facility] [id number] Baso (Absolute) 0.0 {x10E3/uL} (Normal) Range: 0.0-0.2 [...] 11.7-15.0 WBC 4.2 {x10E3/uL} (Normal) Range: 4.0-10.5 98-Jlw-580391:42 Comp. Metabolic Panel (14) Comments: PATIENT WAS FASTINGPERFORMED BY: LabCoMarlton Rehabilitation HospitalDqqpxh8780 [facility] [id number] A/G Ratio 1.6 (Normal) Range: 1.1-2.5 Albumin, [...] Sodium, Serum 140 mmol/L (Normal) Range: 135-145 6-Cuh-358327:09 FECAL OCCULT HGB ASSAY, QUAL, 1-3 SIMULTANEOUS DETERMINATIONS (96187) FECAL OCCULT HGB ASSAY, QUAL, 1-3 SIMULTANEOU neg (Normal) :42 Microscopic Examination Comments: PATIENT WAS FASTINGPERFORMED BY: [facility]ActorAt[facility] [id number] Bacteria None seen (Normal) Cast Type Hyaline casts (Normal) Casts Present {/lpf} (Abnormal) Epithelial Cells (non renal) 0-10 {/hpf} (Normal) Range: 0 - 10 Mucus Threads Present (Normal) RBC 0-3 {/hpf} (Normal) Range: 0 - 3 WBC 0-5 {/hpf} (Normal) Range: 0 - 5 :42 URINALYSIS W/O MICRO (93838) Comments: PATIENT WAS FASTINGPERFORMED BY: [facility]ActorAt[facility] [id number] Appearance Clear (Normal) Bilirubin Negative (Normal) Glucose Negative (Normal) Ketones Negative (Normal) Microscopic Examination See below: (Normal) Nitrite, Urine Negative (Normal) Occult Blood Negative (Normal) pH 5.0 (Normal) Range: 5.0-7.5 Protein 1+ (Abnormal) Specific [place] 1.013 (Normal) Range: 1.005-1.030 Urine-Color Yellow (Normal) Urobilinogen,Semi-Qn 0.2 mg/dL (Normal) Range: 0.0-1.9 WBC Esterase 1+ (Abnormal) :42 MICROALBUMIN: CREATININE RATIO Comments: PATIENT WAS FASTINGPERFORMED BY: [facility] [id number] ([id number]) AND (19007) Creatinine, Urine 76.1 mg/dL (Normal) Range: 15.0-278.0 Microalb/Creat Ratio 292.1 {ug/mg_creat} (Abnormal) Range: 0.0-30.0 Microalbumin, Urine 222.3 ug/mL (Abnormal) Range: 0.0-17.0 :42 CBC WITH MANUAL DIFF (12411) Comments: PATIENT WAS FASTINGClinical Information: ADD DRAW FEE [id number] ADD J 97423 PERFORMED BY: [facility] [id number] Baso (Absolute) 0.0 {x10E3/uL} (Normal) Range: 0.0-0.2 [...] COMPREHENSIVE Comments: PATIENT WAS FASTINGPERFORMED BY: [facility] [employer] [facility] [id number] ([id number]) A/G Ratio 1.8 (Normal) Range: 1.1-2.5 Albumin, [...] Sodium, Serum 141 mmol/L (Normal) Range: 135-145 6-Ooo-899160:23 HgA1C , Office (79105) HgA1C , Office 6.0 % (Normal) Range: 4.6 - 7.1 8-Yge-547368:23 Blood Glucose , Office (29938) Blood Glucose , Office 103 (Normal) 25-Vtw-479670:38 CBC WITH MANUAL DIFF (54419) Comments: PATIENT WAS FASTINGClinical Information: ADD DRAW FEE 580262 ADD J 36850 PERFORMED BY: EVE LabCoMarl[facility] Rehabilitation HospitalZlrbtt9161 [facility] [id number] Baso (Absolute) 0.0 {x10E3/uL} (Normal) Range: 0.0-0.2 [...] 11.7-15.0 WBC 4.0 {x10E3/uL} (Normal) Range: 4.0-10.5 27-Joj-891900:38 METABOLIC PANEL, COMPREHENSIVE Comments: PATIENT WAS FASTINGPERFORMED BY: TrustifiCoMarlton Rehabilitation HospitalWubswg4996 [facility] [id number] (62163) A/G Ratio 1.8 (Normal) Range: 1.1-2.5 Albumin, [...] Sodium, Serum 142 mmol/L (Normal) Range: 135-145 45-Iap-877595:38 HEPATIC FUNCTION PANEL Comments: PATIENT WAS FASTINGPERFORMED BY: [facility] Vmrbte4675 [facility] [id number] (12433) Bilirubin, Direct 0.08 mg/dL (Normal) Range: 0.00-0.40 98-Yfu-418433:38 LIPID PANEL (84222) Comments: PATIENT WAS FASTINGPERFORMED BY: [facility] Kzfjof1200 [facility] [id number] Cholesterol, Total 200 mg/dL (Abnormal) Range: 100-199 [...] (Normal) Range: 5-40 :36 HgA1C , Office (99794) HgA1C , Office 6.1 % (Normal) Range: 4.6 - 7.1 :36 Blood Glucose , Office (91176) Blood Glucose , Office 98 (Normal) :33 CBC With Differential/Platelet Comments: PATIENT WAS FASTINGClinical Information: SRC:UR PERFORMED BY: [facility] Mllvhx3098 [facility] [id number] Baso (Absolute) 0.0 {x10E3/uL} (Normal) Range: 0.0-0.2 [...] 11.7-15.0 WBC 4.8 {x10E3/uL} (Normal) Range: 4.0-10.5 33-Yws-086646:33 Comp. Metabolic Panel (14) Comments: PATIENT WAS FASTINGPERFORMED BY: LabCoMarlton Rehabilitation HospitalOlorsn0220 [facility] [id number] A/G Ratio 1.6 (Normal) Range: 1.1-2.5 Albumin, [...] Serum 92 mg/dL (Normal) Range: 65-99 If -Niuean 57 mL/min/1.73 Comments: Note: Persistent reduction for [...] With LDL/HDL Comments: PATIENT WAS FASTINGPERFORMED BY: [place] [employer] [place] [employer]6370 [facility] [id number] Ratio Cholesterol, Total 174 mg/dL (Normal) Range: [...] Urine Culture,Comprehensive Comments: PATIENT WAS FASTINGPERFORMED BY: [place] [employer] [place] [employer]6370 [facility] [id number] Antimicrobial MIHEAD (Normal) Comments: S = Susceptible; [...] Enterococcus. (Normal) Urine Final report (Normal) Culture,Comprehensive 5-Gis-844492:10 HgA1C , Office (31727) HgA1C , Office 5.9 % (Normal) Range: [...] mL (Normal) URINE PROTEIN 20.0 mg/dL (Abnormal) 96-Nrv-171471:17 Urine Culture,Comprehensive Comments: Clinical Information: SRC:UR PERFORMED BY: [facility]6370 [facility] [id number] Result 1 CNSNSS (Normal) Comments: Coagulase negative Staphylococcus species, not Staphylococcussaprophyticus.600 Colonies/mLSusceptibility or resistance of staphylococci to oxacillin predictssusceptibility or resistance to (a) other be kj-cszfdhmrn-wxclsdyshxswqsoxp such as cloxacillin and dicloxacillin, (b) combinationsof a penicillin and a beta-lactamase inhibitor, and(c) anti- staphylococcal cephalosporins. Routine testing of otherp enicillins, beta-lactam/beta-lactamase inhibitor combinations,cephems, and carbapenems is not advised by the CLSI Standards(E177-U80, 2005). S = Susceptible; I = Intermediate; R = Resistant * P = Positive; N = Negative MICS are expressed in micrograms per mL Antibiotic RSLT#1 RSLT#2 RSLT#3 RSLT#4Ciprofloxacin RGentami kristian SLevofloxacin RNitrofurantoin SOxacillin SPenicillin RRifampin STrimethoprim/Sulfa SVancomycin S Urine Final report Culture,Comprehensi (Normal) ve :53 Metabolic Panel, Basic (15822) Comments: PATIENT NOT FASTINGClinical Information: ADD DRAW FEE 264240 ADD J 09142 PERFORMED BY: [facility] Ifzuub2939 [facility] [id number] BUN 39 mg/dL (Abnormal) Range: 5-26 BUN/Creatinine Ratio 33 (Abnormal) Range: 8-27 Calcium, Serum 9.8 mg/dL (Normal) Range: 8.5-10.6 Carbon Dioxide, Total 22 mmol/L (Normal) Range: 20-32 Chloride, Serum 103 mmol/L (Normal) Range: 97-108 Creatinine, Serum 1.20 mg/dL (Abnormal) Range: 0.57-1.00 Glom Filt Rate, Est 45 mL/min/1.73 Range: 60-128 (Abnormal) Glucose, Serum 101 mg/dL (Abnormal) Range: 65-99 If -Niuean 55 mL/min/1.73 Range: 60-128 (Abnormal) Comments: Note: Persistent reduction for 3 months or more in an eGFR<60 mL/min/1.73 m2 defines CKD. Patients with eGFR values>/=60 mL/min/1.73 m2 may also have CKD if evidence of persistentproteinuria is present. Additional information may be found atwww.kdoqi.org. Potassium, Serum 5.1 mmol/L (Normal) Range: 3.5-5.2 Sodium, Serum 139 mmol/L (Normal) Range: 135-145 :09 HgA1C , Office (04891) HgA1C , Office 6.1 % (Normal) Range: 4.6 - 7.1 :09 Blood Glucose , Office (59110) Blood Glucose , Office 163 (Normal) :37 SPINE,LUMBAR (ROUTINE) Radiology Report See Note (Normal) Comments: Exam Number: [id number] MRI LUMBAR SPINE CLINICAL STATEMENTLow back pain [...] onboth sides. Reported By: MODESTA COPE M.D. 12-Fae-725118:00 [facility] DIGITAL & CAD Radiology Report See Note (Normal) Comments: Exam Number: [id number] MAMMOGRAM, BILATERAL SCREENING DIGITAL AND CAD HISTORYRoutine screening. Full field digital images were obtained in mediolateral oblique andcraniocaudal projections. CAD images w ere reviewed. The current study is compared to the [facility]. A small metal marker is placed [...] mammograms werealso examined with computer-aided detection software ([employer], Stroz Friedberg, [employer].). Reported By: DONNA OJEDA M.D. :59 DEXA BONE DENSITY STUDY (HP) Radiology Report See Note (Normal) Comments: Exam Number: [id number] BONE DENSITOMETRY HISTORYPost menopausal. TECHNIQUE Bone densitometry [...] Report See Note (Normal) Comments: Exam Number: [id number] FIVE VIEW LUMBAR SPINE AP, lateral, both [...] By: MAIRA GARZA M.D. :19 Microalb/Creat Ratio, [facility] Comments: PATIENT NOT FASTINGPERFORMED BY: [facility] Hxrcry1970 [facility] [id number] Creatinine, Urine 46.8 mg/dL (Normal) Microalb/Creat Ratio 712.8 {ug/mg_creat} (Abnormal) Range: 0.0-30.0 Microalbum.,U,Random 333.6 ug/mL (Abnormal) Range: 0.0-17.0 :13 Creatinine Clearance Comments: PATIENT NOT FASTINGClinical Information: HT-5'4'' WT-184 PERFORMED BY: [employer] Kkbfqj7567 [facility] [id number] Creatinine Clearance 40 mL/min (Abnormal) Range: 88-128 Comments: The above range is based on 1.73 square meter average body surfacearea. Creatinine, Serum 1.30 mg/dL (Normal) Range: 0.50-1.50 Creatinine, Ur 24hr 754.8 {mg/24_hr} Range: 800.0-1800.0 (Abnormal) Creatinine, Urine 44.4 mg/dL (Normal) Glom Filt Rate, Est 41 mL/min (Abnormal) Range: 60-128 If -Niuean 50 mL/min (Abnormal) Range: 60-128 Comments: Note: Persistent reduction for 3 months or more in an eGFR<60 mL/min/1.73 m2 defines CKD. Patients with eGFR values>/=60 mL/min/1.73 m2 may also have CKD if evidence of persistentproteinuria is present. .Additional information may be found at www.kdoqi.org. :13 Protein Total, Qn, 24-Hr Comments: PATIENT NOT FASTINGPERFORMED BY: [employer] Ntjdmq6603 [facility] [id number] Urine Protein,Total,Urine 49.0 mg/dL (Abnormal) Range: 0.0-15.0 Prt, 24hr calculated 833.0 {mg/24_hr} (Abnormal) Range: 30.0-150.0 00-Lqm-444244:00 CBCD,SMEAR DIFF CELLS COUNTED 100 (Normal) EOS [...] T PROT 6.6 g/dL (Normal) Range: 6.4-8.2 70-Vdp-231378:00 D BILI 0.06 mg/dL (Normal) Range: 0.00-0.30 14-Avr-383883:00 LIPID CHOL 175 mg/dL (Normal) Comments: <200 [...] mg/dL VLDL 12 mg/dL (Normal) Range: 5-40 65-Zal-294542:00 TSH 0.84 {uIU/mL} (Normal) Range: 0.34-4.82 Plan [...] of skin Planned Observations Vitamin D Hydroxy (27988)Indication: Vitamin D deficiency On: :25 Request URINALYSIS, W/ MICRO (65357)Indication: Chronic kidney disease, stage 3 On: :25 Request LIPID PANEL (82984)Indication: Mixed hyperlipidemia On: : Request CBC W/AUTO DIFF WBC (86873)Indication: Chronic kidney disease, stage 3 On: : Request METABOLIC PANEL, COMPREHENSIVE (76552)Indication: Chronic kidney disease, stage 3 On: :25 Request HGB A1C (34291)Indication: Diabetes mellitus type II, controlled On: 94-Ews-232211:24 Request Parathyroid Hormone-related Peptide (PTH-rP) (39067)Indication: Vitamin D deficiency On: 1-Bhm-191156:43 Request Comments: send results to Dr. Santana fax: [phone] VITAMIN D, 1, 25-DIHYDROXY (42071)Indication: Vitamin D deficiency On: 2-Vtl-198882:42 Request Comments: send results to Dr. Santana fax: [phone] Clostridium difficile Toxin A+B, EIA (19999)Indication: Chronic diarrhea On: 2-Fgs-497287:36 Request Vitamin D Hydroxy (94791)Indication: Osteopenia On: 0-Mzv-370835:20 Request CBC W/AUTO DIFF WBC (96860)Indication: Hypertension, benign On: 9-Rfd-400209:16 Request CALCIFEDIOL (21785)Indication: Chronic kidney disease, stage 3 On: 03-Aug-20169:04 Request Renal function Panel (56324)Indication: Chronic kidney disease, stage 3 On: :04 Request Magnesium (84849)Indication: Chronic kidney disease, stage 3 On: :04 Request MICROALBUMIN: CREATININE RATIO (86836) AND (15243)Indication: Chronic kidney disease, stage 3 On: :04 Request Parathyroid Hormone-related Peptide (PTH-rP) (59874)Indication: Chronic kidney disease, stage 3 On: :04 Request T4, FREE (THYROXINE) (92118)Indication: Cold feeling On: :31 Request TSH (30081)Indication: Cold feeling On: : Request PARATHORMONE (53863)Indication: Chronic kidney disease, stage 3 On: :18 Request Comments: copy to Dr. Santana [phone] CALCIFIDIOL (42841) VIT D 25Indication: Chronic kidney disease, stage 3 On: :16 Request Comments: copy to Dr. Santana [phone] MAGNESIUM (97575)Indication: Chronic kidney disease, stage 3 On: :15 Request Comments: copy to Dr. Santana [phone] PROTEIN/CREAT RATIO, URINE (34486)Indication: Chronic kidney disease, stage 3 On: :15 Request Comments: copy to Dr. Santana [phone] LIPID PANEL (70028)Indication: Mixed hyperlipidemia On: :21 Request CBC with auto diff (17397)Indication: Diabetes mellitus type II, controlled On: 32-Gdy-214394:20 Request METABOLIC PANEL, COMPREHENSIVE (65538)Indication: Diabetes mellitus type II, controlled On: 10-Sfd-772463:20 Request HGB A1C (85466)Indication: Diabetes mellitus type II, controlled On: :10 Request Vitamin D Hydroxy (42221)Indication: Osteopenia On: :08 Request TSH (THYROID STIMULATING HORMONE) (66519)Indication: Depression On: :06 Request LIPID PANEL (65450)Indication: Other and unspecified hyperlipidemia On: :06 Request CBC with auto diff (25825)Indication: Diabetes mellitus type II, controlled On: 02-Jwo-879513:06 Request METABOLIC PANEL, COMPREHENSIVE (59437)Indication: Diabetes mellitus type II, controlled On: 82-Nwz-703463:06 Request CREATININE CLEARANCE (12330)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 On: 1-Lne-595437:38 Request Total Protein,24 Hour Urine (47999)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 On: 3-Jlq-709326:38 Request CBC W/AUTO DIFF WBC (24678)Indication: Diabetes mellitus type II, controlled On: 45-Zks-782726:11 Request HgA1C , Office (31905)Indication: Diabetes mellitus type II, controlled On: 46-Fmw-985343:23 Request CULTURE, SPUTUM (61898)Indication: Cough On: 08-Kgy-592715:47 Request HEPATIC FUNCTION PANEL (38585)Indication: Elevated LFTs On: 59-Hxj-26493:24 Request CREATININE CLEARANCE (49479)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 On: :33 Request 24 hour urine for Protein (76830)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 On: :33 Request CBC WITH MANUAL DIFF (13803)Indication: Diabetes mellitus type II, controlled On: :29 Request METABOLIC PANEL, COMPREHENSIVE (98890)Indication: Diabetes mellitus type II, controlled On: 48-Vem-136907:29 Request LIPID PANEL (74347)Indication: Mixed hyperlipidemia On: :29 Request CREATININE CLEARANCE (42536)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 On: 8-Wwb-121652:45 Request 24 hour urine for Protein (67536)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 On: 2-Hue-490441:45 Request CREATININE CLEARANCE (09001)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 On: 73-Vxl-818918:57 Request 24 hour urine for Protein (42450)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 On: 20-Yiy-000104:57 Request METABOLIC PANEL, COMPREHENSIVE (77906)Indication: Hypertension, benign On: :32 Request LIPID PANEL (77560)Indication: Mixed hyperlipidemia On: 96-Gcf-29102:32 Request C-REACTIVE PROTEIN (42470)Indication: Fatigue On: :24 Request SED RATE ERYTHROCYTE (46675)Indication: Headache On: :24 Request VITAMIN B-12 (CYANOCOBALAMIN) (96608)Indication: Fatigue On: :24 Request LIPID PANEL (35460)Indication: Mixed hyperlipidemia On: :41 Request CBC WITH MANUAL DIFF (06107)Indication: Hypertension, benign On: :41 Request METABOLIC PANEL, COMPREHENSIVE (20053)Indication: Hypertension, benign On: :41 Request CREATININE CLEARANCE (23976)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 On: :34 Request 24 hour urine for Protein (20691)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 On: :34 Request LIPID PANEL (61220)Indication: Mixed hyperlipidemia On: :22 Request HEPATIC FUNCTION PANEL (64441)Indication: Mixed hyperlipidemia On: :22 Request Vitamin D Hydroxy (80180)Indication: Hypercalcemia On: :22 Request PHOSPHORUS (05071)Indication: Hypercalcemia On: 4-Ynm-298270:22 Request PARATHORMONE (20468)Indication: Hypercalcemia On: :22 Request METABOLIC PANEL, COMPREHENSIVE (88439)Indication: Hypercalcemia On: 3-Omy-975967:22 Request CBC WITH MANUAL DIFF (09960)Indication: fsgs On: :58 Request LIPID PANEL (02872)Indication: Mixed hyperlipidemia On: :58 Request METABOLIC PANEL, COMPREHENSIVE (84018)Indication: Hypertension, benign On: 8-Lhv-075916:58 Request Blood Glucose , Office (90259)Indication: Diabetes mellitus type II, controlled On: 4-Muv-633964:10 Request TSH (73967)Indication: Diabetes mellitus type II, controlled On: 23-Jqv-998558:51 Request METABOLIC PANEL, COMPREHENSIVE (46464)Indication: Diabetes mellitus type II, controlled On: 61-Von-215499:51 Request CBC WITH MANUAL DIFF (08891)Indication: Diabetes mellitus type II, controlled On: 59-Emg-223325:51 Request MICROALBUMIN: CREATININE RATIO (50084) AND (52837)Indication: Diabetes mellitus type II, controlled On: :51 Request HEPATIC FUNCTION PANEL (81214)Indication: Other and unspecified hyperlipidemia On: :51 Request LIPID PANEL (03288)Indication: Other and unspecified hyperlipidemia On: :51 Request HgA1C , Office (48959)Indication: Diabetes mellitus type II, controlled On: :37 Request Blood Glucose , Office (37635)Indication: Diabetes mellitus type II, controlled On: :37 Request Planned Encounters Medical; [facility] 3 Month FU - On: 22-Mar-2018 11:00 [facility] Fast DO, Chaparrita A Fast DO, Chaparrita A Planned Procedures DRAIN/INJECT MAJOR JOINT OR BURSA On: 07-Feb-2018 Intent ()By: Keri Singh MD Comments: lot no [id number] exp date 2017-12-26 DRAIN/INJECT MAJOR JOINT OR BURSA On: 31-Jan-2018 Intent ()By: Keri Singh MD Comments: Lot#[id number]:0-74-14Pxsek:intra articular Site given:left knee Given By: Dr. Singh ABN signed DRAIN/INJECT MAJOR JOINT OR BURSA On: 24-Jan-2018 Intent ()By: Keri Singh MD Comments: Lot#[id number]: 7-34-40Sozpa:intra artciular Site given:left knee Given By: Dr. Singh ABN signed Euflexxa Echo CompleteBy: Fast DO, Chaparrita A On: 16-Dec-2017 Intent Fast DO, Chaparrita A Flu Vaccine (Quadrivalent) 32737Wg: On: 16-Dec-2017 Intent Fast DO, Chaparrita A Fast DO, Chaparrita A Comments: Lot: #[id number]: 10/01/18Site: L dltd, IMDose prefilled syringegiven by: Jamie reviewed and ABN signed Kenalog Injection, 10 mgm On: 03-Oct-2017 Intent (J3301)By: Keri Singh MD Comments: lot: [id number]: 8/19site/route: L knee Cartoid DopplerBy: Ambrocio WOLFF Chaparrita A On: 12-Sep-2017 Intent Ambrocio WOLFF Chaparrita A Comments: november DIGITAL TOMOSYNTHESIS OF On: 12-Sep-2017 Intent BREAST (25391)By: Chaparrita Albrecht DO A Comments: due november 02 Ambrocio WOLFF Chaparrita A Kenalog Injection, 10 mgm On: 06-Jun-2017 Intent (J3301)By: Keri Singh MD Comments: bupivacacine 0.5% [id number] exp 09-20 kenalog 40 mg injected in. [id number] 07-21 MRI OF BRAIN WITH AND WITHOUT On: 06-Jun-2017 Intent CONTRAST (07143)By: Chaparrita Albrecht DO A Ambrocio WOLFF, Chaparrita A ELECTROCARDIOGRAM, COMPLETE (ECG) On: 06-Jun-2017 Intent (98233)By: Chaparrita Albrecht DO Comments: ekg showed normal sinus rhythym, normal axis, no acute st/t wave changes DO, Chaparrita A INFUSION, NORMAL SALINE SOLUTION , On: 10-May-2017 Intent 1000 CC (Special Coverage Comments: 2 liters total Instructions Apply. See MCM: 2048) (J7030)By: Chaparrita Albrecht DO A Fast DO, Chaparrita A INFUSION, NORMAL SALINE SOLUTION , On: 10-May-2017 Intent 1000 CC (Special Coverage Comments: lot:[id number]:IV left anticub dose:1000ml given by:eliazar Araya LPN Instructions Apply. See MCM: 2048) (J7030)By: Chaparrita Albrecht DO A Ambrocio WOLFF, Chaparrita A Radiology - Chest- PA and LatBy: On: 05-May-2017 Intent Keri Singh MD Aerosol Treatment (64942)By: On: 05-May-2017 Intent Keri Singh MD Radiology - ChestBy: Francisco MANN, On: 05-May-2017 Intent Keri Alonzo Comments: call wet read DRAIN/INJECT MAJOR JOINT OR BURSA On: 28-Feb-2017 Intent (44408)By: Keri Singh MD Comments: 1 cc Kenelog #[id number] cc Marcaine #[id number] Kenalog Injection, 10 mgm On: 28-Feb-2017 Intent (J3301)By: Keri Singh MD ELECTROCARDIOGRAM, COMPLETE (ECG) On: 10-Jan-2017 Intent (43054)By: Chaparrita Albrecht DO Comments: ekg showed normal sinus rhythym, normal axis, no acute st/t wave changes Case WOLFFa A Flu Vaccine (Quadrivalent) 24037Uw: On: 27-Dec-2016 Intent SHONDA Andrade DRAIN/INJECT MAJOR JOINT OR BURSA On: 20-Aug-2016 Intent ()By: Keri Singh MD DRAIN/INJECT MAJOR JOINT OR BURSA On: 13-Aug-2016 Intent ()By: SHONDA Andrade Comments: lot: [id number]:[id number]:intra articular dose:2ml given by:Dr. Francisco HUMPHREY signedER, HALL WORKER injection #3 DOPPLER ULTRASOUND OF RIGHT CAROTID On: 10-Aug-2016 Intent ARTERY (71697)By: Ambrocio WOLFF Chaparrita A Comments: end october Ambrocio DO Chaparrita A DEXA SCAN AXIAL SKELETON (69585)By: On: 10-Aug-2016 Intent Ambrocio WOLFF, Chaparrita A Fast DO, Chaparrita A Comments: end october SCREENING DIGITAL TOMOSYNTHESIS OF On: 10-Aug-2016 Intent BREAST (43726)By: Case Albrecht DOa A Comments: end of october Ambrocio WOLFF, Chaparrita A DRAIN/INJECT MAJOR JOINT OR BURSA On: 06-Aug-2016 Intent ()By: Keri Singh MD DRAIN/INJECT INTERMED JOINT/BURSA On: 06-Aug-2016 Intent ()By: SHONDA Andrade Comments: lot:[id number]:[id number]:left knee dose:2mlgiven by:Dr. Francisco HUMPHREY signedER, HALL WORKER injection number 2 Venous Doppler - LeftBy: Ambrocio WOLFF, On: 03-Aug-2016 Intent Chaparrita A Ambrocio DO, Chaparrita A Comments: This is set up for August 05 at 11am- spoke with Rina in cv. DRAIN/INJECT INTERMED JOINT/BURSA On: 30-Jul-2016 Intent ()By: Keri Singh MD Comments: lot:[id number]:[id number]:intra articular left knee dose: 2ml given by: Dr. Singh [facility] signedER, HALL WORKER injection #1 Radiology - Knee - LeftBy: Fast DO, On: 26-May-2016 Intent Chaparrita A Fast DO, Chaparrita A Flu Vaccine (Quadrivalent) 75957Rc: On: 27-Jan-2016 Intent Fast DO, Chaparrita A Fast DO, Chaparrita A Comments: Lot #:[id number] date:10/01/16mount given:0.5mlRoute: IMSite given: left deltoidGiven by: CARMELINA Hook [facility] INFLUENZA VIRUS On: 27-Jan-2016 Intent VACCINE (G0008)By: Fast DO, Chaparrita A Fast DO, Chaparrita A DOPPLER ULTRASOUND OF RIGHT CAROTID On: 22-Oct-2015 Intent ARTERY (39934)By: Fast DO, Chaparrita A Fast DO, Chaparrita A MAMMOGRAM, SCREENING, BOTH BREAST On: 22-Oct-2015 Intent (14254)By: Fast DO, Chaparrita A Fast DO, Chaparrita A Ultrasound - RenalBy: Fast DO, On: 14-Jul-2015 Intent Chaparrita A Fast DO, Chaparrita A Radiology - Knee - Left - Weight On: 11-Mar-2015 Intent BearingBy: Fast DO, Chaparrita A Fast DO, Chaaprrita A Radiology - Knee - Right - Weight On: 11-Mar-2015 Intent BearingBy: Fast DO, Chaparrita A Fast DO, Chaparrita A Flu Vaccine (Quadrivalent) 62168Pl: On: 11-Feb-2015 Intent Fast DO, Chaparrita A Fast DO, Chaparrita A EKG (14284)By: Fast DO, Chaparrita A On: 05-Nov-2014 Intent Fast DO, Chaparrita A Comments: ekg showed normal sinus rhythym, normal axis, no acute st/t wave changes left axis DRAIN/INJECT SMALL JOINT OR BURSA On: 07-Oct-2014 Intent ()By: Keri Singh MD MAMMOGRAM, SCREENING, BOTH BREAST On: 02-Aug-2014 Intent (19764)By: Fast DO, Chaparrita A Fast Comments: meera DO, Chaparrita A Cartoid DopplerBy: Fast DO, Chaparrita A On: 02-Aug-2014 Intent Fast DO, Chaparrita A DEXA SCAN AXIAL SKELETON (93004)By: On: 09-Apr-2014 Intent Fast DO, Chaparrita A Fast DO, Chaparrita A Prevnar 13 (38806)By: Ambrocio WOLFF, On: 30-Jan-2014 Intent Chaparrita A Fast DO, Chaparrita A Comments: Lot:[id number]:05/20Dose:0.5Route:imSite:l armGiven By:Jarred signed FLU VAC, SPLIT, >3 YEARS, INTRAMUSC On: 16-Jan-2014 Intent (12925)By: Chaparrita Albrecht DO A Ambrocio Comments: Lot #:[id number] date:12/2015Amount given:0.5mlRoute: IMSite given: left deltoidGiven by: CARMELINA Hook DO, Chaparrita A ADMINISTRATION OF INFLUENZA VIRUS On: 16-Jan-2014 Intent VACCINE (G0008)By: Ambrocio DO, Chaparrita A Fast DO, Chaparrita A EKG (04407)By: Ambrocio DO, Chaparrita A On: 17-Oct-2013 Intent Fast DO, Chaparrita A Comments: ekg showed normal sinus rhythym, left axis, no acute st/t wave changes Radiology - Chest- PA and LatBy: On: 17-Sep-2013 Intent Fast DO, Chaparrita A Fast DO, Chaparrita A Aerosol Treatment (22848)By: Ambrocio On: 17-Sep-2013 Intent DO, Chaparrita A Fast DO, Chaparrita A MRI - BrainBy: Fast DO, Chaparrita A On: 22-Jul-2013 Intent Fast DO, Chaparrita A Cartoid DopplerBy: Fast DO, Chaparrita A On: 20-Jul-2013 Intent Fast DO, Chaparrita A MAMMOGRAM, SCREENING, BOTH BREASTS On: 20-Jul-2013 Intent (62071)By: Fast DO, Chaparrita A Fast DO, Chaparrita A Eprescribed prescriptions On: 20-Jul-2013 Intent (G8553)By: Fast DO, Chaparrita A Fast DO, Chaparrita A Eprescribed prescriptions On: 02-Feb-2013 Intent (G8553)By: Марина Concepcion FLU VAC, SPLIT, >3 YEARS, INTRAMUSC On: 03-Jan-2013 Intent ([id number])By: Марина Concepcion Comments: Lot #:[id number] date:mount given:0.5mlRoute: IMSite given: L dltdVIS and ABN signedGiven by: CARMELINA Hook ADMINISTRATION OF INFLUENZA VIRUS On: 03-Jan-2013 Intent VACCINE ([id number])By: Марина Concepcion CT - Abdomen & Pelvis (IV Contrast On: 17-Oct-2012 Intent Needed)By: Ambrocio WOLFF Chaparrita A Ambrocio Comments: patient will be calling to set up DO, Chaparrita A Eprescribed prescriptions On: 10-Oct-2012 Intent ([id number])By: Марина Concepcion Ear Irrigation ([id number])By: Rome, On: 13-Jun-2012 Intent Ivy Comments: Ear Irrigation performed on: right earAmount/color removed cerumen: light brown, small amount removedOUtcome:Pt toleratedUsed wax curettes Wax Currettes ([id number])By: Rome, On: 13-Jun-2012 Intent Ivy PNEUM VAC ADLT/IMUMNOSPR, SBC/INTRM On: 13-Jun-2012 Intent ([id number])By: Chaparrita Albrecht DO A Ambrocio Comments: Lot:[id number]:09/09/13Dose:0.5mLRoute:IMSite:L armGiven By:BHUMI signed DO, Chaparrita A EKG ([id number])By: Ambrocio WOLFF Chaparrita A On: 13-Jun-2012 Intent Ambrocio DO Chaparrita A Comments: ekg showed normal sinus rhythym, normal axis, no acute st/t wave changes MRI - BrainBy: Ambrocio DO, Chaparrita A On: 13-Jun-2012 Intent Ambrocio WOLFF Chaparrita A Comments: yonatan ADMINISTRATION OF PNEUMOCOCCAL On: 13-Jun-2012 Intent VACCINE ([id number])By: Ambrocio WOLFF Chaparrita A Fast DO, Chaparrita A Eprescribed prescriptions On: 13-Jun-2012 Intent ([id number])By: Марина Concepcion MAMMOGRAM, SCREENING, BOTH BREASTS On: 28-Dec-2011 Intent ([id number])By: Ambrocio WOLFF Chaparrita A Fast DO, Chaparrita A DXA, BONE DENSITY, AXIAL SKELETON On: 28-Dec-2011 Intent ([id number])By: Ambrocio WOLFF Chaparrita A Fast DO, Chaparrita [...] SPLIT, >3 YEARS, INTRAMUSC On: 28-Dec-2011 Intent ([id number])By: Марина Concepcion Comments: Lot #:[id number] date:mount given:0.5mlRoute: IMSite given: left deltoidGiven by: CARMELINA Hook ADMINISTRATION OF INFLUENZA VIRUS On: 28-Dec-2011 Intent VACCINE (G0008)By: Марина Concepcion Aerosol Treatment ([id number])By: Ciesa On: 30-Nov-[address] - Abdomen & PelvisBy: Fast DO, On: 21-Sep-2011 Intent Chaparrita A Fast DO, Chaparrita A Comments: with special cuts through the kidney- october EKG ([id number])By: Марина Concepcion On: 15-Jun-2011 Intent Comments: ekg [...] Comments: Call results to Dr. Albrecht @ [phone] as soon as resulted please. DO, Chaparrita A Eprescribed prescriptions On: 11-Jan-2011 Intent ([id number])By: Ambrocio DO, Chaparrita A Fast DO, Chaparrita A MAMMOGRAM, SCREENING, BOTH BREASTS On: 11-Jan-2011 Intent ([id number])By: Fast DO, Chaparrita A Fast DO, Chaparrita A CT - Sinuses CompleteBy: Fast DO, On: 11-Jan-2011 Intent Chaparrita A Fast DO, Chaparrita A Cartoid DopplerBy: Fast DO, Chaparrita A On: 11-Jan-2011 Intent Fast DO, Chaparrita A ADMINISTRATION OF INFLUENZA VIRUS On: 11-Jan-2011 Intent VACCINE ([id number])By: Марина Concepcion FLU VAC, SPLIT, >3 YEARS, INTRAMUSC On: 11-Jan-2011 Intent ([id number])By: Марина Concepcion Eprescribed prescriptions On: 12-Oct-2010 Intent ([id number])By: Ambrocio WOLFF, Chaparrita A Fast DO, Chaparrita A Renal DopplerBy: Fast DO, Chaparrita A On: 12-Oct-2010 Intent Fast DO, Chaparrita A Cartoid DopplerBy: Fast DO, Chaparrita A On: 12-Oct-2010 Intent Fast DO, Chaparrita A Comments: sept TDAP VACCINE >7 IM ([id number])By: On: 13-May-2010 Intent Helena Tineo LPN Comments: Lot #[id number]/25/13Site-left deltoidgiven by:[facility] EKG ([id number])By: Марина Concepcion On: 13-May-2010 Intent Comments: ekg showed normal sinus rhythym, normal axis, no acute st/t wave changes Aerosol Treatment ([id number])By: Charlene On: 22-Dec-2009 Intent Johanna SANZ Cartoid DopplerBy: Fast DO, Chaparrita A On: 01-Dec-2009 Intent Fast DO, Chaparrita A MAMMOGRAM, SCREENING, BOTH BREASTS On: 01-Dec-2009 Intent ([id number])By: Fast DO, Chaparrita A Fast DO, Chaparrita A DXA, BONE DENSITY, AXIAL SKELETON On: 01-Dec-2009 Intent ([id number])By: Fast DO, Chaparrita A Fast DO, Chaparrita A Ultrasound - SpleenBy: Fast DO, On: 17-Jun-2009 Intent Chaparrita A Fast DO, Chaparrita A EKG ([id number])By: Марина Concepcion On: 10-Mar-2009 Intent Comments: ekg showed normal sinus rhythym, normal axis, no acute st/t wave changes FLU VAC, SPLIT, >3 YEARS, INTRAMUSC On: 09-Jan-2009 Intent ([id number])By: Stacy Jorge Comments: Lot #[id number]-left deltoidDose0.5mlgiven by Marycarmen Jorge LPN ADMINISTRATION OF INFLUENZA VIRUS On: 09-Jan-2009 Intent VACCINE ([id number])By: Stacy Jorge MAMMOGRAM, SCREENING, BOTH BREASTS On: 04-Dec-2008 Intent ([id number])By: Fast DO, Chaparrita A Fast DO, Chaparrita A MAMMOGRAM, SCREENING, BOTH BREASTS On: 03-Sep-2008 Intent ([id number])By: Fast DO, Chaparrita A Fast DO, Chaparrita A FLU VAC, SPLIT, >3 YEARS, INTRAMUSC On: 16-Jan-2008 Intent ([id number])By: Janet Scherer RN Comments: Lot #: [id number] date: 09/10Amount given: 0.5 mlRoute: IMSite given: Left deltoidGiven by: Olivia Bell LPN ADMINISTRATION OF INFLUENZA VIRUS On: 16-Jan-2008 Intent VACCINE (G0008)By: Janet Scherer RN EKG ([id number])By: Fast DO, Chaparrita A On: 29-Aug-2007 Intent Fast DO, Chaparrita A Comments: done km ADMINISTRATION OF PNEUMOCOCCAL On: 29-Aug-2007 Intent VACCINE (G0009)By: Fast DO, Chaparrita A Fast DO, Chaparrita A PNEUM VAC ADLT/IMUMNOSPR, SBC/INTRM On: 29-Aug-2007 Intent ([id number])By: Fast DO, Chaparrita A Fast Comments: 0.5cc given im lt arm [id number] 02-13-08 DO, Chaparrita A DXA, BONE DENSITY, AXIAL SKELETON On: 29-Aug-2007 Intent ([id number])By: Fast DO, Chaparrita A Fast DO, Chaparrita A MAMMOGRAM, SCREENING, BOTH BREASTS On: 29-Aug-2007 Intent ([id number])By: Fast DO, Chaparrita A Fast DO, Chaparrita [...] new people and be involved in the [employer] 0 bps are good and sugar looking [...] medical issues: she has been working with [employer] and trying to work on that- she got rid of respiratory infection but was sick for weeks and was on pred so her sugar up and chol up a bit- trying to add protein shakes drink more water- she is starting back at [facility]- diarrhea resolved- we did talk about going [...] that she had episode where went to [facility] and she couldnt remember where she was- and happened one other time where she didnt recognize the roads- sister had alzheimer s- weight down because was sick- but coming back up- she hasnt done counseling with hospice has been thru before- she lonely- not necessarily unhappy- she doing self help she is singing with [employer]ist- -rodriguez gars are all in low 100s-130- going to [place] for a month next monthEncounter Diagnosis: Nonsmoker, [...] Eddie and bp is good she joined [employer] sugar up bit doi ng ice cream-the bone density reviewed little thinner she not exercising routienly until just recent at [employer] and sees kidney doc next week and [...] chronic medical issues: alot of stress maribel yfrisheri in hospice - going to [facility] end [...] - has etoh /drug addiction- [facility] with al[facility]heimers- she not depressed [...] up, Laboratory Test Results - Date: (09/2015- [facility]). , [ADDITIONAL REASON] Itching - Symptoms [...] Meningioma (Renamed from ABNRM RESULT, FUNCTION STUDY, BRAIN/ASSURANCE ENGINEER NEC (794.09)) [facility] [...] Meningioma (Renamed from ABNRM RESULT, FUNCTION STUDY, BRAIN/ASSURANCE ENGINEER NEC (794.09)), Diabetes, Type II, controlled [...] cant take byetta due to cost in [facility]- - takes ??lorazepam 1-2 [...] Meningioma (Renamed from ABNRM RESULT, FUNCTION STUDY, BRAIN/ASSURANCE ENGINEER NEC (794.09)), Colon Polyp [facility] [...] Meningioma (Renamed from ABNRM RESULT, FUNCTION STUDY, BRAIN/ASSURANCE ENGINEER NEC (794.09)), OCCLUSION AND STENOSIS OF [...] Meningioma (Renamed from ABNRM RESULT, FUNCTION STUDY, BRAIN/ASSURANCE ENGINEER NEC (794.09)), Chronic glomerulonephritis with lesion [...] Meningioma (Renamed from ABNRM RESULT, FUNCTION STUDY, BRAIN/ASSURANCE ENGINEER NEC (794.09)), Other and unspecified hyperlipidemia [...] Meningioma (Renamed from ABNRM RESULT, FUNCTION STUDY, BRAIN/ASSURANCE ENGINEER NEC (794.09)) [facility] [...] Meningioma (Renamed from ABNRM RESULT, FUNCTION STUDY, BRAIN/ASSURANCE ENGINEER NEC (794.09)), Gerd (530.81), Hyperlipidemia, Unspecified [...] Meningioma (Renamed from ABNRM RESULT, FUNCTION STUDY, BRAIN/ASSURANCE ENGINEER NEC (794.09)), Hypertension,benign(401.1), OCCLUSION AND STENOSIS [...] Meningioma (Renamed from ABNRM RESULT, FUNCTION STUDY, BRAIN/ASSURANCE ENGINEER NEC (794.09)), Diabetes, Type II, controlled [...] Meningioma (Renamed from ABNRM RESULT, FUNCTION STUDY, BRAIN/ASSURANCE ENGINEER NEC (794.09)), Hypertension,benign(401.1), Osteopenia (733.90), Depression [...] weight down 23 pounds- and trying joined [employer]- she feels well - she increased celexa [...] Meningioma (Renamed from ABNRM RESULT, FUNCTION STUDY, BRAIN/ASSURANCE ENGINEER NEC (794.09)), Chronic glomerulonephritis with lesion [...] Meningioma (Renamed from ABNRM RESULT, FUNCTION STUDY, BRAIN/ASSURANCE ENGINEER NEC (794.09)) End: 26-Jan-2011 16:53 [facility] Visit On: 19-Jan-2011 14:30 Encounter Diagnosis: brain tumor End: 21-Sep-2011 8:09 [facility] Phone Encounter On: 19-Jan-2011 13:41 Encounter Diagnosis: ABNRM RESULT, FUNCTION STUDY, BRAIN/ASSURANCE ENGINEER NEC (794.09) End: 19-Jan-2011 13:44 [facility] [...] (V04.81), Degenerative Disc Disease - Lumbar (722.52), [facility] [place] [facility] [...] Disease - Lumbar (722.52), Osteopenia (733.90), Hypertension,benign(401.1), [facility] [place] [facility] Historical [...] WITH RADICULOPATHY (724.4) [facility] Payers MedicareAARP/[facility]ITAL[facility]; a guarantor
--- OUTSIDE RECORDS SUMMARY | 2018-06-25 22:25 | XMS RPT_ITS | Continuity of Care Document ---
:1940 Author Organization [facility] Address [address] [place] [address] Phone Care Team Providers Name Role Phone [...] Knee pain, unspecified laterality (719.46) Comments: Valorie:lot: [id number]: 09/20site/route: L knee Status: Active Leg pain, [...] Quantity: 1 {Box} Refills: 3 Ordered:18-Sep-2013 , Chaaprrita AFast DO, Chaparrita A Start : 18-Sep-2013 [...] spray daily for 0 days Quantity: 1 {[place]} Refills: 0 Ordered:04-May-2016 SHONDA Andrade Start : [...] 3 Ordered:02-Feb-2013 Fast DO, Chaparrita AFast DO, Hcaparrita A Start : 02-Feb-2013 End : 02-Feb-2013 [...] and dispense 8 ounes TOTAL mixed solutionCal [id number] if questions SPECTAZOLE, 1% (External Cream) 1 [...] End : 11-Feb-2015 Discontinued Comments:[age], called to [facility] 08-30-14 [facility] Allergies and Adverse Reactions [...] 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 2016 right Cholecystectomy Completed lumbar jtkwkh==9250 Completed Tonsillectomy Completed Date Value Details 19-Dec-2017 Echocardiogram Complete Result: Comments: See Note; NOTES: [facility] Cardiovascular Services [address] [place] [address] Echo Complete 12/19/17 0800 MR#: [id number] Acct: [id number] Name: CLARENCE ALBERT ep #: [id number] : 1940 77 From: Chuckie Cormier MD Attending Dr: Chaparrita Albrecht DO Status: REG CLI Ordering Dr: Chaparrita Albrecht DO Date: 12/19/17 Location: [facility] Sex: F C Admitted: Reason For Study: [...] Dictated: 12/19/17 0800 Date Transcribed: 12/19/17 1022 Production Analyst: Signed 07-Dec-2017 Carotid Duplex Ultrasound Result: Comments: See Note; NOTES: [facility] Cardiovascular Services [address] [place] [address] Carotid Duplex Ultrasound 12/06/17 0901 MR#: [id number] Acct: [id number] Name: CLARENCE WHITTINGTON Rep #: [id number] : 1940 77 From: Anurag Loya MD [...] the left vertebral artery. Procedure Carotid Duplex 29130. Exam performed in department. Interpretation Summary Mild (<50%) stenosis right extracranial internal carotid. Mild (<50%) stenosis left extracranial internal carotid. Flow within the vertebral arteries is antegrade bilaterally. __ __ Ordering Physician: Chaparrita Albrecht Performed By: Margot Benton RVT and Student 12/07/17 0809 Date Anurag Loya MD CC: Chaparrita Albrecht DO Date Dictated: 12/06/17900 Date Transcribed: 12/07/17808 Production Analyst: Signed 06-Dec-2017 SCREENING MAMM (CAD), BILAT Result: Comments: See Note; NOTES: [facility] Imaging Services [address] [place] [address] SCREENING MAMM (CAD), BILAT MR#: [id number] Acct: [id number] Name: CLARENCE ALBERT Rep #: [id number] : 1940 F 77 From: Misael Heebrt MD PCP: hCaparrita Albrecht DO Status: REG CLI Study: SCREENING MAMM (CAD), BILAT Date of Exam: 12/06/17 Exam# [id number] Ordering Dr: Chaparrita Albrecht DO MAMM OGRAPHY [...] delay biopsy of a clinically suspicious abnormality. [id number] Electronically Signed: Misael Hebert MD at 15:31 EDT Tel [phone], Se rvice support , CC: Chaparrita Albrecht DO Production Analyst: Signed 10-Jun-2017 Brain W/WO Contrast Result: Comments: See Note; NOTES: [facility] Imaging Services [address] [place] [address] Brain W/WO Contrast MR#: [id number] Acct: [id number] Name: CLARENCE ALBERT Rep #: [id number] : 1940 F 77 From: Laya Montilla MD PCP: Chaparrita Albrecht DO Status: REG CLI Study: Brain W/WO Contrast Date of Exam: 06/10/17 Exam# [id number] Ordering Dr: Chaparrita Albrecht DO STUDY: MRI [...] Service support , CC: Chaparrita Albrecht DO Production Analyst: Signed 05-May-2017 Chest PA and Lateral Result: Comments: See Note; NOTES: [facility] Imaging Services [address] [place] [address] Chest PA and Lateral MR#: [id number] Acct: [id number] Name: CLARENCE ALBERT Rep #: [id number] : 1940 F 77 From: Edwar Patino MD PCP: Chaparrita Albrecht DO Status: REG CLI Study: Chest PA and Lateral Date of Exam: 05/05/17 Exam# [id number] Ordering Dr: Keri Singh MD STUDY: X-RAY [...] CC: Keri Singh MD; Chaparrita Albrecht DO Production Analyst: Signed 02-Nov-2016 Dexa Bone Density Study (HP) Result: Comments: See Note; NOTES: [facility] Imaging Services [address] [place] [address] Verdana 4d Dexa Bone Density Study (HP) MR#: [id number] Acct: [id number] Name: LYNNE ALBERT Rep #: [id number] : 1940 F 76 From: Misael Hebert MD PCP: Chaparrita Albrecht DO Status: REG CLI Study: Dexa Bone Density Study (HP) Date of Exam: 11/02/16 Exam# [id number] Ordering Dr: Laura DO STUDY: DUAL ENERGY [...] Misael Hebert MD at 11:02 EDT Tel [phone], Service support , CC: Chaparrita Albrecht DO Production Analyst: Signed 02-Nov-2016 SCREENING MAMM (CAD), BILAT Result: Comments: See Note; NOTES: [facility] Imaging Services [address] [place] [address] Verdana 4d SCREENING MAMM (CAD), BILAT MR#: [id number] Acct: [id number] Name: CLARENCE ALBERT Rep #: [id number] : 1940 F 76 From: Misael Hebert MD PCP: Chaparrita Albrecht DO Status: [facility] CLI Study: SCREENING MAMM (CAD), BILAT Date of Exam: 11/02/16 Exam# [id number] Ordering Dr: Case Albrecht DO MAMMOGRAPHY - [...] delay biopsy of a clinically suspicious abnormality. [id number] Electronically Signed: Misael Hebert MD at 12:44 EDT Tel [phone], Service support , CC: Chaparrita Albrecht DO Production Analyst: Signed 05-Aug-2016 Venous Duplex Lower Extremity Result: Comments: See Note; NOTES: [facility] Cardiovascular Services [address] [place] [address] Venous Duplex US, Unilateral 08/05/16 1053 MR#: [id number] Acct: [id number] Name: CLARENCE WEI Rep #: [id number] : 1940 76 From: Elvin Natarajan MD [...] Dictated: 08/05/16 1053 Date Transcribed: 08/05/16 1127 Production Analyst: Signed 27-May-2016 Knee 4 or More Views Result: Comments: See Note; NOTES: [facility] Imaging Services [address] [place] [address] Verdana 4d Knee 4 or More Views MR#: [id number] Acct: [id number] Name: CLARENCE ALBERT Rep #: [id number] : 1940 F 76 From: Misael Hebert MD PCP: Chaparrita Albrecht DO Status: REG CLI Study: Knee 4 or More Views Date of Exam: 05/27/16 Exam# [id number] Ordering Dr: Kylah Linda UDY: X-RAY - [...] MD at 10:41 EST , Service support [phone], CC: Chaparrita Albrehct DO; Kylah Linda DO Production Analyst: Signed 13-May-2016 Sinus/Facial Bone Result: Comments: See Note; NOTES: [facility] Imaging Services [address] [place] [address] Verdana 4d Sinus/Facial Bone MR#: [id number] Acct: [id number] Name: CLARENCE ALBERT Rep #: [id number] : 1940 F 76 From: Godwin Winter MD PCP: Chaparrita Albrecht DO Status: REG CLI Study: Sinus/Facial Bone Date of Exam: 05/13/16 Exam# [id number] Ordering Dr: Alejandro Silverman MD STUDY: CT [...] MD at 7:35 EST , Service support [phone], CC: Chaparrita Albrecht DO; Alejandro Silverman MD Production Analyst: Signed 21-Apr-2016 Emergency Department Summary Result: Comments: See Note; NOTES: [facility] Medical Records Department [address] [place] [address] Emergency Department Summary MR#: [id number] Acct: [id number] Name: CLARENCE ALBERT Rep #: [id number] : 1940 76 From: Carissa Murphy MD [...] epistaxis. CARISSA MURPHY MD T: NTS JOB: [id number] 04/21/1606 <Electronically signed by Carissa Murphy MD> Date Carissa donovan MD Cosigner Signature (If Indicated): Date CC: Chaparrita Albrecht DO Date Dictated: 04/20/161711 Date Transcribed: 04/20/161711 Production Analyst: Signed 20-Apr-2016 Discharge Instruction Result: Comments: See Note; NOTES: [facility] Medical Records Department [facility] [place] [address] Discharge Instruction 04/20/16 1303 MR#: [id number] Acct: [id number] Name: CLARENCE ALBERT Rep #: [id number] : 1940 76 From: Carissa Murphy MD [...] your Primary Care Provider. Call [facility] ([phone]) or report to the closest Emergency Room. Call 911 if necessary. 04/20/16 1645 <Electronically signed by Carissa Murphy MD> Date Carissa Murphy MD Cosigner Signature (If I ndicated): Date CC: Chaparrita Albrecht DO 02-Nov-2015 Carotid Duplex Ultrasound Result: Comments: See Note; NOTES: [facility] Cardiovascular Services [address] [place] [address] Carotid Duplex Ultrasound 10/30/15 1100 MR#: [id number] Acct: [id number] Name: CLARENCE ALBERT Rep #: [id number] : 1940 75 From: Elvin Natarajan MD [...] the left vertebral artery. Procedure Carotid Duplex 81274. The exam was diagnostic. Exam performed in [...] Dictated: 10/30/15 1100 Date Transcribed: 11/02/15 1143 Production Analyst: Signed 30-Oct-2015 Bilat Scrn Digital AND CAD Result: Comments: See Note; NOTES: [facility] Imaging Services [address] [place] [address] Verdana 4d Bilat Scrn Digital AND CAD MR#: [id number] Acct: [id number] Name: CLARENCE ALBERT Rep #: [id number] : 1940 F 75 From: Andres Brady MD PCP: Chaparrita Albrecht DO Status: REG CLI Study: Bilat Scrn Digital AND CAD Date of Exam: 10/30/15 Exam# [id number] Ordering Dr: Chaparrita Albrecht DO MAMMOGRAPHY - [...] biop sy of a clinically suspicious abnormality. [id number] Electronically Signed: Andres Brady MD at 17:48 EDT Tel , Service support [phone], CC: Chaparrita Albrecht DO Production Analyst: Signed 30-Oct-2015 Saad Jaffe Digital AND CAD Result: Comments: See Note; NOTES: [facility] Imaging Services [address] [place] [address] Verdana 4d Billila Jaffe Digital AND CAD MR#: [id number] Acct: [id number] Name: CLARENCE ALBERT Rep #: [id number] : 1940 F 75 From: Andres Brady MD PCP: Chaparrita Albrecht DO Status: REG CLI Study: Saad Jaffe Digital AND CAD Date of Exam: 10/30/15 Exam# [id number] Ordering Dr: Chaparrita Albrecht DO MAMMOGRAPHY - [...] abnormalities are identified. CC: Chaparrita Albrecht DO Production Analyst: Signed 22-Oct-2015 ELECTROCARDIOGRAM, COMPLETE (ECG) (01268) Comments: ekg showed normal sinus rhythym, normal axis, no acute st/t wave changes no change Result: [MEASUREMENTS ANALYSIS] Date of Test: 10/22/2015 14:41:29; Heart Rate: 71; W[place] Interval: 140; QRS: 94; QT Interval: 384; Corrected QT Interval (QTc): 403; P Wave [place]den: 58; QRS Wave [place]: -3; T Wave [place]: 56; Blood Pressure: 128/76 [ECG DIAGNOSTIC STATEMENTS] Date of Test: 10/22/2015 14:41:29; Summary: Sinus Rhythm Low voltage -possible pulmonary disease. ABNORMAL 22-Jul-2015 Kidney and Bladder Result: Comments: See Note; NOTES: [facility] Imaging Services [address] [place] [address] Verdana 4d Kidney and Bladder MR#: [id number] Acct: [id number] Name: ALBERTYaniv Rep #: [id number] : 1940 F 75 From: Nir Sanchez MD PCP: Chaparrita Albrecht DO Status: REG CLI Study: Kidney and Bladder Date of Exam: 07/22/15 Exam# [id number] Ordering Dr: Chaparrita Albrecht DO STUDY: RENAL [...] Service support , CC: Chaparrita Albrecht DO Production Analyst: Signed 11-Mar-2015 Knee 4 or More Views Result: Comments: See Note; NOTES: [facility] Imaging Services [address] [place] [address] Verdana 4d Knee 4 or More Views MR#: [id number] Acct: [id number] Name: CLARENCE ALBERT Rep #: [id number] : 1940 F 74 From: Trent Cameron DO PCP: Chaparrita Albrecht DO Status: REG CLI Study: Knee 4 or More Views Date of Exam: 03/11/15 Exam# [id number] Ordering Dr: Case Albrecht DO STUDY: X-RAY [...] at 7:45 EST Tel , Service support [phone], RAD/Knee 4 or More Views IMPRESSION: Degener ative changes within the knee. No acute fracture. Small suprapatellar effusion. Electronically Signed: Trent [place] DO at 7:45 EST Tel , Service support [phone], CC: Chaparrita Albrecht DO Production Analyst: Signed 11-Mar-2015 Knee 4 or More Views Result: Comments: See Note; NOTES: [facility] Imaging Services [address] [place] [address] Verdana 4d Knee 4 or More Views MR#: [id number] Acct: [id number] Name: CLARENCE ALBERT Rep #: [id number] : 1940 F 74 From: Trent Cameron DO PCP: Chaparrita Albrecht DO Status: REG CLI Study: Knee 4 or More Views Date of Exam: 03/11/15 Exam# [id number] Ordering Dr: Case Albrecht DO STUDY: X-RAY [...] at 7:46 EST Tel , Service support [phone], RAD/Knee 4 or More Views IMPRESSION: Mild degenerative changes. No acute bony abnormality. Electronically Signed: Trent Cameron DO at 7:46 EST Tel , Service support [phone], CC: Chaparrita Albrecht DO Production Analyst: Signed 18-Oct-2014 Carotid Duplex Ultrasound Result: Comments: See Note; NOTES: [facility] Cardiovascular Services [address] [place] [address] Carotid Duplex Ultrasound 10/18/14 1331 MR#: [id number] Acct: [id number] Na me: CLARENCE ALBERT Rep #: [id number] : 1940 74 From: Elvin Natarajan MD [...] the left vertebral artery. Procedure Carotid Duplex 56927. The exam was diagnostic. Exam performed in [...] Dictated: 10/18/14 1331 Date Transcribed: 10/18/14 1616 Production Analyst: Signed 18-Oct-2014 Bilat Scrn Digital AND CAD Result: Comments: See Note; NOTES: [facility] Imaging Services [address] [place] [address] Breast Imaging Report MR#: [id number] Acct: [id number] Name: CLARENCE ALBERT Rep #: [id number] : 1940 F 74 From: Misael Hebert MD PCP: Chaparrita Albrecht DO Status: REG CLI Study: Saad Scrn Digital AND CAD Date of Exam: 10/18/14 Exam# [id number] Ordering Dr: Chaparrita Albrecht DO MAMMOGRAPHY - [...] Misael redmond MD at 13:44 EDT Tel [phone], Service support [phone], CC: Chaparrita Albrecht DO Production Analyst: Signed 09-Jul-2014 Dexa Bone Density Study (HP) Result: Comments: See Note; NOTES: [facility] Imaging Services [address] [place] [address] Bone Density Report MR#: [id number] Acct: [id number] Name: CLARENCE ALBERT Rep #: [id number] : 1940 F 74 From: Misael Hebert MD PCP: Chaparrita Albrecht DO Status: REG CLI Study: Dexa Bone Density Study (HP) Date of Exam: 07/09/14 Exam# [id number] Ordering Dr: Chaparrita Albrecht DO STUDY: DUAL [...] Angel Hebert MD at 14:55 EDT Tel [phone], Service support [phone], CC: Chaparrita Albrecht DO Production Analyst: Signed 17-Sep-2013 Chest PA and Lateral Result: Comments: See Note; NOTES: [facility] Imaging Services [address] [place] [address] Radiology Report MR#: [id number] Acct: [id number] Name: CLARENCE ALBERT Rep #: [id number] : 1940 F 73 From: David Bennett MD PCP: Chaparrita Albrecht DO Status: REG CLI Study: Chest PA and Lateral Date of Exam: 09/17/13 Exam# [id number] Ordering Dr: Chaparrita Albrecht DO STUDY: X-RAY [...] MD at 20:44 EDT , Service support [phone], RAD/Chest PA and Lateral IMPRESSION: No focal infiltrate or edema. Electronic ally Signed: David Bennett MD at 20:44 EDT , Service support [phone], CC: Chaparrita Albrecht DO Production Analyst: Signed 17-Sep-2013 Spirometry (91688) Result: 29-Aug-2013 Carotid Duplex Ultrasound Result: Comments: See Note; NOTES: [facility] Cardiovascular [address] [address] Carotid Duplex Ultrasound 08/24/13 0939 MR#: [id number] Acct: [id number] Chalo e: CLARENCE ALBERT Rep #: [id number] : 1940 73 From: Anurag Loya MD [...] in the left bulb. Procedure Carotid Duplex 25548. Exam perfor med in department. Interpretation Summary Mild (<50%) stenosis right extracranial internal carotid. Mild (<50%) stenosis left extracranial internal carotid. Flow within the vertebra l arteries is antegrade bilaterally. Ordering Physician: Chaparrita Albrecht Performed By: Kendal Benton RVT : Chaparrita Albrecht DO Date Dictated: 08/24/13 0939 Date Transcribed: 08/29/13 1118 Production Analyst: Signed Immunization Name Dates Details Influenza (3 years and up) on: 16-Jan-2008 Comments: Lot #: [id number] date: 09/10Amount given: 0.5 mlRoute: IMSite given: Left deltoidGiven by: Olivia Bell LPN Influenza (3 years and up) on: 09-Jan-2009 Comments: Lot #[id number]-left deltoidDose0.5mlgiven by Marycarmen Jorge LPN Pneumococcal (2 years and up) on: 29-Aug-2007 Comments: 0.5cc given im lt arm [id number] exp 02-13-08 Family History Unknown Family Member [...] 0.00 cm Results Date Description Value Details 95-Ujk-521863:24 HgA1C , Office (15638) HgA1C , Office 6.5 % (Normal) Range: 4.6 - 7.1 :14 LIPID PANEL (61235) Comments: PATIENT WAS FASTINGPERFORMED BY: [facility] Bpjwnf[address] [facility] [id number] LDL/HDL Ratio 1.1 {ratio} (Normal) Range: 0.0-3.2 [...] (Normal) Range: 100-199 :14 Vitamin D Hydroxy (11428) Comments: PATIENT WAS FASTINGPERFORMED BY: CableOrganizer.comH[facility] Meadowview HospitalAkhouf2962 [facility] [id number] Vitamin D, 25-Hydroxy 37.8 ng/mL (Normal) Range: 30.0-100.0 Comments: Vitamin D deficiency has been defined by the [place] of[facility] Hospitalcine and an Endocrine Society practice guideline as alevel of serum 25-OH vitamin D less than 20 ng/mL (1,2).The Endocrine Society went on to further define vitamin Dinsufficiency as a level between 21 and 29 ng/mL (2).1. IOM ([place] of Medicine). 2010. Dietary reference intakes for calcium and D. [place]: The National AcademOktopost Press.2. Mira MF, Rosette LOPEZ, Tommy SWAIN, et al. Evaluation, treatment, and prevention of vitamin D deficiency: an Endocrine Society clinical practice guideline. JCEM. 2010; 96(7):1911-30. :14 CBC with auto diff (67658) Comments: PATIENT WAS FASTINGPERFORMED BY: [facility] Fnggsa2099 [facility] [id number] Immature Grans (Abs) 0.0 {x10E3/uL} (Normal) Range: [...] PANEL, COMPREHENSIVE Comments: PATIENT WAS FASTINGPERFORMED BY: [facility]CoH[facility] Meadow[facility] HospitalAlljot4817 [facility] [id number] (49813) ALT (SGPT) 10 [iU]/L (Normal) Range: 0-32 [...] CREATININE RATIO Comments: PATIENT WAS FASTINGPERFORMED BY: CableOrganizer.comH[facility] Meadowview HospitalEvkqqm6282 [facility] [id number] (28940) AND (62248) Alb/Creat Ratio 4213.3 {mg/g_creat} (Abnormal) Range: 0.0-30.0 Albumin, Urine 3206.3 ug/mL (Normal) Comments: Results confirmed ondilution. Creatinine, Urine 76.1 mg/dL (Normal) :40 CBC & PLATELETS (AUTO) (72038) Comments: please fax to Dr. Austin- [phone]; PATIENT WAS FASTINGPERFORMED BY: CableOrganizer.comH[facility] County Meadowview HospitalAmfrzc5190 [facility] [id number] Platelets 148 {x10E3/uL} (Abnormal) Range: 150-379 RDW [...] PANEL Comments: please fax to Dr. Austin- [phone]; PATIENT WAS FASTINGPERFORMED BY: [facility] [facility] [id number] Information: [id number] FX DR. SANTANA (83010) Albumin 3.1 g/dL (Abnormal) Range: 3.5-4.8 Phosphorus [...] 8-27 Glucose 133 mg/dL (Abnormal) Range: 65-99 74-Kub-72238:40 MAGNESIUM (06611) Comments: please fax to Dr. Austin- [phone]; PATIENT WAS FASTINGPERFORMED BY: [facility] Jecgju9956 [facility] [id number] Magnesium 1.9 mg/dL (Normal) Range: 1.6-2.3 29-Zzd-77668:40 CALCIFEDIOL (25302) Comments: please fax to Dr. Austin- [phone]; PATIENT WAS FASTINGPERFORMED BY: LabLocalSortHudson County Meadowview HospitalTuupfe7252 [facility] [id number] Vitamin D, 25-Hydroxy 29.4 ng/mL (Abnormal) Range: 30.0-100.0 Comments: Vitamin D deficiency has been defined by the [place] ofMedicine and an Endocrine Society practice guideline as alevel of serum 25-OH vitamin D less than 20 ng/mL (1,2).The Endocrine Society went on to further define vitamin Dinsufficiency as a level between 21 and 29 ng/mL (2).1. IOM ([place] of Medicine). 2010. Dietary reference intakes for calcium and D. [place]: The National Academies Press.2. Mira OLIVEIRA, Rosette LOPEZ, Tommy SWAIN, et al. Evaluation, treatment, and prevention of vitamin D deficiency: an Endocrine Society clinical practice guideline. JCEM. 2010; 96(7):1911-30. :40 PARATHORMONE (55823) Comments: please fax to Dr. Austin- [phone]; PATIENT WAS FASTINGPERFORMED BY: [facility]E [facility] [address] [place] [id number] PTH, Intact 22 pg/mL (Normal) Range: 15-65 :30 COLON BIOPSY (CHOOSE See Note (Normal) Comments: [facility] [address] [place], [address] SITE) Comments: Patient: CLARENCE ALBERT : 1940 (77/F) Acct Num: [id number] Phys: Marcus Caldera Unit Num: [id number] Loc: [facility] Specimen: [id number] Received: 09/16/171528 Spec Type: C OLON BX [...] one cassette. / Elsi 09/19/17 TC:1 CPT: 10743 x2 HEADER OPERATION: Colonoscopy PRE-OP DIAGNOSIS: History [...] PANEL, COMPREHENSIVE Comments: PATIENT NOT FASTINGPERFORMED BY: LabCoH[facility]owview HospitalFutwko9336 [facility] [id number] (49261) ALT (SGPT) 14 [iU]/L (Normal) Range: 0-32 [...] (Abnormal) Range: 65-99 :07 HgA1C , Office (27425) HgA1C , Office 7.2 % (Abnormal) Range: 4.6 - 7.1 :37 Clostridium difficile Toxin Comments: PATIENT NOT FASTINGPERFORMED BY: LabCoH[facility]ow[facility] HospitalVvqgqr5055 [facility] [id number] A+B, EIA (24560) C difficile Toxins A+B, EIA Negative (Normal) :37 LEUKOCYTE COUNT, FECAL (44289) Comments: PATIENT NOT FASTINGPERFORMED BY: [facility] [facility] [id number] Result 1 NWBC (Normal) Comments: No white blood cells seen. White Blood Cells (WBC), Final report (Normal) Stool :37 OVA & PARASITE DIR SMEAR Comments: PATIENT NOT FASTINGPERFORMED BY: [facility] [facility] [id number] (82755) Result 1 NOCP (Normal) Comments: No ova, cysts, or parasites seen. Ova + Parasite Exam Final report (Normal) Comments: These results were obtained using wet preparation(s) and trichromestained smear. This test does not include testing for Cryptosporidiumparvum, Cyclospora, or Microsporidia. :37 SETH CULTURE-STOOL (41249) Comments: PATIENT NOT FASTINGPERFORMED BY: [facility] [facility] [id number] Information: SRC:ST SRC:ST E coli Shiga Toxin EIA Negative (Normal) Result 1 NCI (Normal) Comments: No Campylobacter species isolated. Campylobacter Culture Final report (Normal) Result 1 NSS (Normal) Comments: No Salmonella or Shigella recovered. Salmonella/Shigella Screen Final report (Normal) :06 Renal function Panel Comments: fax copy to Dr. Santana [phone]; A courtesy copy of this report has been sent [phone].PATIENT NOT FASTINGPERFORMED BY: [facility] [facility] [id number] Information: NURSE DRAW (10314) Albumin 3.5 g/dL (Normal) Range: 3.5-4.8 Phosphorus [...] copy of this report has been sent [phone].PATIENT NOT FASTINGPERFORMED BY: [facility] EnergyFormerly [facility] [id number] :02 Range: 15-65 Vitamin D, 25-Hydroxy 34.7 ng/mL (Normal) Comments: A courtesy copy of this report has been sent [phone].PATIENT NOT FASTINGPERFORMED BY: [employer]70 [facility] InvestmentsFormerly [facility] [id number] :02 Range: 30.0-100.0 Comments: Vitamin D deficiency has been defined by the [place] ofMedicine and an Endocrine Society practice guideline as alevel of serum 25-OH vitamin D less than 20 ng/mL (1,2).The Endocrine Society went on to further define vitamin Dinsufficiency as a level between 21 and 29 ng/mL (2).1. IOM ([place] of Medicine). 2010. Dietary reference intakes for calcium and D. [place]: The National Academies Press.2. Mira MF, Rosette LOPEZ, Tommy SWAIN, et al. Evaluation, treatment, and prevention of vitamin D deficiency: an Endocrine Society clinical practice guideline. JCEM. 2010; 96(7):1911-30. 0-Pvr-325003:02 MICROALBUMIN: CREATININE RATIO Comments: send results to Dr. Santana fax: [phone]; A courtesy copy of this report has been sent [phone].PATIENT NOT FASTINGPERFORMED BY: ZYB Bdvnou1165 [facility] [id number] (58518) AND (23854) Alb/Creat Ratio 4191.2 {mg/g_creat} (Abnormal) Range: 0.0-30.0 Albumin, Urine 2380.6 ug/mL (Normal) Comments: Results confirmed ondilution. Creatinine, Urine 56.8 mg/dL (Normal) 6-Efm-776222:02 CBC, PLATELETS & MANUAL Comments: send results to Dr. Santana fax: [phone]; A courtesy copy of this report has been sent [phone].PATIENT NOT FASTINGPERFORMED BY: LabCoHudson [facility] Meadowview HospitalVpglyp9825 [facility] [id number] Information: VIT D25, PTH DIFF (28526) Immature Grans (Abs) 0.0 {x10E3/uL} (Normal) Range: [...] 3.77-5.28 WBC 5.4 {x10E3/uL} (Normal) Range: 3.4-10.8 1-Ewe-896960:02 MAGNESIUM (77677) Comments: send results to Dr. Santana fax: [phone]; A courtesy copy of this report has been sent [phone].PATIENT NOT FASTINGPERFORMED BY: [employer]70 [facility] [id number] Magnesium, Serum 1.8 mg/dL (Normal) Range: 1.6-2.3 7-Ycn-528929:02 RENAL FUNCTION PANEL (48449) Comments: send results to Dr. Santana fax: [phone]; A courtesy copy of this report has been sent [phone].PATIENT NOT FASTINGPERFORMED BY: [employer] [facility] [id number] Albumin, Serum 3.7 g/dL (Normal) Range: 3.5-4.8 [...] Glucose, Serum 119 mg/dL (Abnormal) Range: 65-99 0-Tcm-054595:07 LIPID PANEL (98907) Comments: PATIENT WAS FASTINGPERFORMED BY: Flipswap[address] [facility] [id number] LDL/HDL Ratio 1.4 {ratio} (Normal) Range: 0.0-3.2 Comments: LDL/HDL Ratio Men Women 1/2 Avg.Risk 1.0 1.5 Av g.Risk 3.6 3.2 2X Avg.Risk 6.2 5.0 3X Avg.Risk 8.0 6.1 LDL Cholesterol Calc 102 mg/dL (Abnormal) Range: 0-99 VLDL Cholesterol Cesar 17 mg/dL (Normal) Range: 5-40 HDL Cholesterol 75 mg/dL (Normal) Triglycerides 84 mg/dL (Normal) Range: 0-149 Cholesterol, Total 194 mg/dL (Normal) Range: 100-199 4-Pvc-060448:07 CBC W/AUTO DIFF WBC (89237) Comments: PATIENT WAS FASTINGPERFORMED BY: [facility]Co Thpume5[address] [facility] [id number] Immature Grans (Abs) 0.0 {x10E3/uL} (Normal) Range: [...] 3.77-5.28 WBC 4.8 {x10E3/uL} (Normal) Range: 3.4-10.8 5-Jgh-713241:07 METABOLIC PANEL, COMPREHENSIVE Comments: PATIENT WAS FASTINGPERFORMED BY: [facility] Lptjml8875 [facility] [id number] (32090) ALT (SGPT) 14 [iU]/L (Normal) Range: 0-32 [...] 8-27 Glucose 158 mg/dL (Abnormal) Range: 65-99 4-Uyt-379370:07 VITAMIN B-12 (CYANOCOBALAMIN) Comments: PATIENT WAS FASTINGPERFORMED BY: EVE LabCoHudson County Meadowview HospitalLxjlyt2914 [facility] [address] [id number] (92661) Vitamin B12 771 pg/mL (Normal) Range: 232-1245 13-May-20170:00 CDIFF (Molecular) Comments: [facility] Nft[address]ahrrad[address] [place], [address] CDIFF See Note (Normal) Comments: Cdiff-MolecularNormal Reference Range = Negative C. Diff DNA Negative- No toxigenic C. Diff DNA DetectedNAAT METHOD Testing was performed using nucleic acid amplification :32 Rapid Flu (29682 x 2) Influenza A Ag Negative (Normal) :35 CBC with auto diff (83844) Comments: PATIENT WAS FASTINGPERFORMED BY: [facility] Qklobg9181 [address] [id number] Immature Grans (Abs) 0.0 {x10E3/uL} (Normal) Range: [...] PANEL, COMPREHENSIVE Comments: PATIENT WAS FASTINGPERFORMED BY: LabCoH[facility] County Meadowview HospitalGstddw3569 [facility] [id number] (08582) ALT (SGPT) 16 [iU]/L (Normal) Range: 0-32 [...] Glucose, Serum 145 mg/dL (Abnormal) Range: 65-99 56-Uha-291868:51 HgA1C , Office (26803) HgA1C , Office 6.7 % (Normal) Range: 4.6 - 7.1 :50 CALCIFEDIOL (40265) Comments: A courtesy copy of this report has been sent [phone].PATIENT WAS FASTINGPERFORMED BY: Flipswap6370 [employer]mill[employer] InvestmentsPatientFocus [place] [id number] Vitamin D, 25-Hydroxy 40.7 ng/mL (Normal) Range: 30.0-100.0 Comments: Vitamin D deficiency has been defined by the [place] ofProm[facility] Hospitalcine and an Endocrine Society practice guideline as alevel of serum 25-OH vitamin D less than 20 ng/mL (1,2).The Endocrine Society went on to further define vitamin Dinsufficiency as a level between 21 and 29 ng/mL (2).1. IOM ([place] of Medicine). 2010. Dietary reference intakes for calcium and D. [place]: The National Academies Press.2. Mira MF, Rosette LOPEZ, Tommy SWAIN, et al. Evaluation, treatment, and prevention of vitamin D deficiency: an Endocrine Society clinical practice guideline. JCEM. 2010; 96(7):1911-30. 6-Sjw-584342:50 PTH (PARATHORMONE) (52655) Comments: A courtesy copy of this report has been sent [phone].PATIENT WAS FASTINGPERFORMED BY: [employer]70 Cmilligan InvestmentsFormerly [facility] [id number] PTH, Intact 20 pg/mL (Normal) Range: 15-65 2-Qwi-333198:50 MICROALBUMIN: CREATININE RATIO Comments: A courtesy copy of this report has been sent [phone].PATIENT WAS FASTINGPERFORMED BY: Flipswap6370 Cmill[employer] InvestmentsFormerly [facility] [id number] (91063) AND (03761) Microalb/Creat Ratio 4376.0 {mg/g_creat} (Abnormal) Range: 0.0-30.0 Microalbumin, Urine 3369.5 ug/mL (Normal) Comments: Results confirmed ondilution. Creatinine, Urine 77.0 mg/dL (Normal) 9-Dwa-496621:50 Renal function Panel Comments: A courtesy copy of this report has been sent [phone].PATIENT WAS FASTINGPERFORMED BY: [employer] [id number] Information: FX DR. SANTANA [phone] (26731) Albumin, Serum 3.8 g/dL (Normal) Range: 3.5-4.8 [...] Glucose, Serum 203 mg/dL (Abnormal) Range: 65-99 1-Eap-393175:50 Magnesium (93225) Comments: A courtesy copy of this report has been sent [phone].PATIENT WAS FASTINGPERFORMED BY: CableOrganizer.comHudson County Meadowview HospitalAzserq9056 [facility] [id number] Magnesium, Serum 1.8 mg/dL (Normal) Range: 1.6-2.3 9-Kgn-436935:53 CBC with auto diff (46840) Comments: A courtesy copy of this report has been sent [phone].PATIENT WAS FASTINGPERFORMED BY: [facility] [id number] Immature Grans (Abs) 0.0 {x10E3/uL} (Normal) Range: [...] {x10E3/uL} (Normal) Range: 3.4-10.8 :53 LIPID PANEL (11496) Comments: A courtesy copy of this report has been sent [phone].PATIENT WAS FASTINGPERFORMED BY: LabCovenant Medical Center6[address] [id number] LDL/HDL Ratio 1.2 {ratio_units} (Normal) Range: 0.0-3.2 Comments: LDL/HDL Ratio Men Women 1/2 Avg.Risk 1.0 1.5 Av g.Risk 3.6 3.2 2X Avg.Risk 6.2 5.0 3X Avg.Risk 8.0 6.1 LDL Cholesterol Calc 90 mg/dL (Normal) Range: 0-99 VLDL Cholesterol Cesar 13 mg/dL (Normal) Range: 5-40 HDL Cholesterol 76 mg/dL (Normal) Triglycerides 67 mg/dL (Normal) Range: 0-149 Cholesterol, Total 179 mg/dL (Normal) Range: 100-199 0-Qgh-164015:53 METABOLIC PANEL, COMPREHENSIVE Comments: A courtesy copy of this report has been sent [phone].PATIENT WAS FASTINGPERFORMED BY: CableOrganizer.comSan Juan Regional Medical CenterWpgdxg7855 [facility] [address] [id number] (41090) ALT (SGPT) 11 [iU]/L (Normal) Range: 0-32 [...] Glucose, Serum 205 mg/dL (Abnormal) Range: 65-99 92-Vhb-143614:57 HgA1C , Office (86406) HgA1C , Office 7.1 % (Normal) Range: 4.6 - 7.1 10-Nov-20169:09 LIPID PANEL (85112) Comments: PATIENT WAS FASTINGPERFORMED BY: CableOrganizer.comSan Juan Regional Medical CenterXhmrhe0378 [facility] [id number] LDL/HDL Ratio 1.3 {ratio_units} (Normal) Range: 0.0-3.2 [...] PANEL, COMPREHENSIVE Comments: PATIENT WAS FASTINGPERFORMED BY: LabCoHudson County Meadowview HospitalAxcjso5798 [facility] [id number] (18523) ALT (SGPT) 12 [iU]/L (Normal) Range: 0-32 [...] (Abnormal) Range: 65-99 :50 HgA1C , Office (67608) HgA1C , Office 6.7 % (Normal) Range: 4.6 - 7.1 :25 Magnesium, Serum 1.9 mg/dL (Normal) Comments: PATIENT WAS FASTINGPERFORMED BY: [facility] Hknphz1607 [address] RoadDublin [place] [id number] Range: 1.6-2.3 :25 Microalb/Creat Ratio, Randm Ur Comments: PATIENT WAS FASTINGPERFORMED BY: LabLocalSortrp Sqikvf7030 [address] RoadDublin [place] [id number] Microalb/Creat Ratio 2652.0 {mg/g_creat} Range: 0.0-30.0 (Abnormal) Microalbumin, Urine 2482.3 ug/mL (Normal) Comments: Results confirmed ondilution. Creatinine, Urine 93.6 mg/dL (Normal) PTH, Intact 26 pg/mL (Normal) Comments: PATIENT WAS FASTINGPERFORMED BY: LabLocalSortrp Xwjrsf6821 [address] RoadDublin [place] [id number] :25 Range: 15-65 :25 Renal Panel (10) Comments: PATIENT WAS FASTINGPERFORMED BY: [facility] Xcjikq8431 [address] RoadDublin [place] [id number] Phosphorus, Serum 4.3 mg/dL (Normal) Range: 2.5-4.5 :25 Thyroxine (T4) Free, Direct, S Comments: PATIENT WAS FASTINGPERFORMED BY: [facility] Zkxyyx3232 [address] RoadDublin [place] [id number] T4,Free(Direct) 1.08 ng/dL (Normal) Range: 0.82-1.77 : TSH 2.980 {uIU/mL} Comments: PATIENT WAS FASTINGPERFORMED BY: [facility] Trujco3127 [address] RoadDublin [place] [id number] 25 (Normal) Range: 0.450-4.500 : Vitamin D, 25-Hydroxy 37.1 ng/mL (Normal) Comments: PATIENT WAS FASTINGPERFORMED BY: [employer] Nhadfh14[address] [id number] 25 Range: 30.0-100.0 Comments: Vitamin D deficiency has been defined by the [place] ofMedicine and an Endocrine Society practice guideline as alevel of serum 25-OH vitamin D less than 20 ng/mL (1,2).The Endocrine Society went on to further define vitamin Dinsufficiency as a level between 21 and 29 ng/mL (2).1. IOM ([place] of Medicine). 2010. Dietary reference intakes for calcium and D. [place]: The National Academies Press.2. Mira MF, Rosette LOPEZ, Tommy SWAIN, et al. Evaluation, treatment, and prevention of vitamin D deficiency: an Endocrine Society clinical practice guideline. JCEM. 2010; 96(7):1911-30. -:25 CBC W/AUTO DIFF WBC (23288) Comments: PATIENT WAS FASTINGPERFORMED BY: [facility] Gogwpp5532 [address] [id number] Immature Grans (Abs) 0.0 {x10E3/uL} (Normal) Range: [...] COMPREHENSIVE Comments: PATIENT WAS FASTINGPERFORMED BY: LabCo Rxrqkm7615 [address] [id number]; non- emergent till apt (88237) ALT (SGPT) 10 [iU]/L (Normal) Range: 0-32 [...] mg/dL (Abnormal) Range: 65-99 :25 LIPID PANEL (32697) Comments: PATIENT WAS FASTINGPERFORMED BY: AnimalvitaeCovenant Medical Center6[address] [facility] [address] [id number] LDL/HDL Ratio 0.9 {ratio_units} (Normal) Range: 0.0-3.2 Comments: LDL/HDL Ratio Men Women 1/2 Avg.Risk 1.0 1.5 Av g.Risk 3.6 3.2 2X Avg.Risk 6.2 5.0 3X Avg.Risk 8.0 6.1 LDL Cholesterol Calc 65 mg/dL (Normal) Range: 0-99 VLDL Cholesterol Cesar 19 mg/dL (Normal) Range: 5-40 HDL Cholesterol 75 mg/dL (Normal) Triglycerides 93 mg/dL (Normal) Range: 0-149 Cholesterol, Total 159 mg/dL (Normal) Range: 100-199 21-Ahq-009595:54 HgA1C , Office (25274) HgA1C , Office 6.6 % (Normal) Range: 4.6 - 7.1 06-Dvp-516132:1 Magnesium, Serum 2.1 mg/dL (Normal) Comments: PATIENT WAS FASTINGPERFORMED BY: AnimalvitaeCovenant Medical Center6[address] [id number] 2 Range: 1.6-2.3 01-Msg-018033:12 Microalb/Creat Ratio, Randm Ur Comments: PATIENT WAS FASTINGPERFORMED BY: AnimalvitaeCovenant Medical Center6[address] [id number] Microalb/Creat Ratio 1863.4 {mg/g_creat} (Abnormal) Range: 0.0-30.0 Microalbumin, Urine 1416.2 ug/mL (Normal) Comments: Results confirmed ondilution. Creatinine, Urine 76.0 mg/dL (Normal) 79-Zqr-974070:12 Microscopic Examination Comments: PATIENT WAS FASTINGPERFORMED BY: AnimalvitaeCovenant Medical Center6[address] [id number] Bacteria None seen (Normal) Mucus Threads Present (Normal) Cast Type Hyaline casts (Normal) Casts Present {/lpf} (Abnormal) Epithelial Cells (non 0-10 {/hpf} Range: 0 - 10 renal) (Normal) RBC 3-10 {/hpf} Range: 0 - 2 (Abnormal) WBC 6-10 {/hpf} Range: 0 - 5 (Abnormal) PTH, Intact 36 pg/mL (Normal) Comments: PATIENT WAS FASTINGPERFORMED BY: [employer] Jdlciz5749 [facility] [id number] 0:12 Range: 15-65 Vitamin D, 25-Hydroxy 42.9 ng/mL (Normal) Comments: PATIENT WAS FASTINGPERFORMED BY: ZYB Yticzk7444 [facility] [address] [id number] 0:12 Range: 30.0-100.0 Comments: Vitamin D deficiency has been defined by the [place] ofMedicine and an Endocrine Society practice guideline as alevel of serum 25-OH vitamin D less than 20 ng/mL (1,2).The Endocrine Society went on to further define vitamin Dinsufficiency as a level between 21 and 29 ng/mL (2).1. IOM ([place] of Medicine). 2010. Dietary reference intakes for calcium and D. [place]: The National Academies Press.2. Mira MF, Rosette [place], Tommy SWAIN, et al. Evaluation, treatment, and prevention of vitamin D deficiency: an Endocrine Society clinical practice guideline. JCEM. 2010; 96(7):1911-30. 34-Vpw-259237:12 URINALYSIS, W/ MICRO (32717) Comments: PATIENT WAS FASTINGPERFORMED BY: ZYB Tvtxab5116 [facility] [id number] Microscopic Examination See below: (Normal) Comments: Microscopic was indicated and was performed. Nitrite, Urine Negative (Normal) Urobilinogen,Semi-Qn 0.2 mg/dL (Normal) Range: 0.2-1.0 Bilirubin Negative (Normal) Occult Blood Negative (Normal) Ketones Negative (Normal) Glucose Negative (Normal) Protein 4+ (Abnormal) WBC Esterase Trace (Abnormal) Appearance Clear (Normal) Urine-Color Yellow (Normal) pH 6.0 (Normal) Range: 5.0-7.5 Specific [place] 1.015 (Normal) Range: 1.005-1.030 44-Rcp-163492:12 CBC W/AUTO DIFF WBC (04274) Comments: PATIENT WAS FASTINGPERFORMED BY: [employer] M[address] [facility] [id number] Immature Grans (Abs) 0.0 {x10E3/uL} (Normal) Range: [...] 3.77-5.28 WBC 6.2 {x10E3/uL} (Normal) Range: 3.4-10.8 40-Wkh-344319:12 METABOLIC PANEL, COMPREHENSIVE Comments: PATIENT WAS FASTINGPERFORMED BY: CableOrganizer.comHudson County Meadowview HospitalEwsysl9852 [facility] [address] [id number] (50759) ALT (SGPT) 14 [iU]/L (Normal) Range: 0-32 [...] Glucose, Serum 154 mg/dL (Abnormal) Range: 65-99 18-Diy-590026:12 LIPID PANEL (77379) Comments: PATIENT WAS FASTINGPERFORMED BY: LabCovenant Medical Center6[address] [id number] LDL/HDL Ratio 0.7 {ratio_units} (Normal) Range: 0.0-3.2 Comments: LDL/HDL Ratio Men Women 1/2 Avg.Risk 1.0 1.5 Av g.Risk 3.6 3.2 2X Avg.Risk 6.2 5.0 3X Avg.Risk 8.0 6.1 LDL Cholesterol Calc 49 mg/dL (Normal) Range: 0-99 VLDL Cholesterol Cesar 14 mg/dL (Normal) Range: 5-40 HDL Cholesterol 75 mg/dL (Normal) Triglycerides 68 mg/dL (Normal) Range: 0-149 Cholesterol, Total 138 mg/dL (Normal) Range: 100-199 50-Bsi-928089:50 HgA1C , Office (38896) HgA1C , Office 6.7 % (Normal) Range: 4.6 - 7.1 36-Pct-445805:36 VITAMIN B-12 (CYANOCOBALAMIN) Comments: PATIENT WAS FASTINGPERFORMED BY: [facility] [id number] (82402) Vitamin B12 802 pg/mL (Normal) Range: 211-946 16-Cnx-319467:36 LIPID PANEL (46022) Comments: PATIENT WAS FASTINGPERFORMED BY: [facility] [place] [address] [id number] LDL/HDL Ratio 0.8 {ratio_units} (Normal) Range: 0.0-3.2 [...] Cholesterol, Total 161 mg/dL (Normal) Range: 100-199 02-Qdy-745022:36 LDH (LD) (LACTATE DEHYDROGENASE) Comments: PATIENT WAS FASTINGPERFORMED BY: [facility] [id number] (40881) LDH 217 [iU]/L (Normal) Range: 119-226 70-Dup-508277:36 CBC W/AUTO DIFF WBC (05879) Comments: PATIENT WAS FASTINGPERFORMED BY: [facility] [id number] Immature Grans (Abs) 0.0 {x10E3/uL} (Normal) Range: [...] 3.77-5.28 WBC 10.6 {x10E3/uL} (Normal) Range: 3.4-10.8 83-Ccr-681366:36 METABOLIC PANEL, COMPREHENSIVE Comments: PATIENT WAS FASTINGPERFORMED BY: LabCo Kcejme4327 [address] [id number] (18545) ALT (SGPT) 15 [iU]/L (Normal) Range: 0-32 [...] Glucose, Serum 137 mg/dL (Abnormal) Range: 65-99 66-Qez-088041:36 TSH (71801) Comments: PATIENT WAS FASTINGPERFORMED BY: StarGreetz Wvkpim9[address] [id number] TSH 0.560 {uIU/mL} (Normal) Range: 0.450-4.500 55-Eho-60383:02 Renal function Panel (82118) Comments: PATIENT WAS FASTINGPERFORMED BY: [facility] Qvkggi5973 [address] [id number] Albumin, Serum 3.7 g/dL (Normal) Range: 3.5-4.8 [...] 137 mg/dL (Abnormal) Range: 65-99 :02 MAGNESIUM (46868) Comments: PATIENT WAS FASTINGPERFORMED BY: [employer] EnergyFormerly [facility] [id number] Magnesium, Serum 2.2 mg/dL (Normal) Range: 1.6-2.3 :02 MICROALBUMIN: CREATININE RATIO Comments: PATIENT WAS FASTINGPERFORMED BY: [employer]70 [facility] HospitalNumberPictureFormerly [facility] [id number] (13619) AND (33971) Microalb/Creat Ratio 2038.7 {mg/g_creat} (Abnormal) Range: 0.0-30.0 Microalbumin, Urine 1223.2 ug/mL (Normal) Comments: Results confirmed ondilution. Creatinine, Urine 60.0 mg/dL (Normal) :02 CBC WITH MANUAL DIFF Comments: PATIENT WAS FASTINGPERFORMED BY: Flipswap[address] [facility] HospitalNumberPictureFormerly [facility] [id number] Information: [id number] (09638) Immature Grans (Abs) 0.0 {x10E3/uL} (Normal) Range: [...] {x10E3/uL} (Normal) Range: 3.4-10.8 :02 HGB A1C (67956) Comments: PATIENT WAS FASTINGPERFORMED BY: Editlitelin6[address] [id number] Hemoglobin A1c 6.4 % (Abnormal) Range: 4.8-5.6 Comments: . Pre-diabetes: 5.7 - 6.4 Diabetes: >6.4 Glycemic control for adults with diabetes: <7.0 :02 Lipid Panel (66279) Comments: PATIENT WAS FASTINGPERFORMED BY: [employer] [id number] LDL/HDL Ratio 1.1 {ratio_units} (Normal) Range: 0.0-3.2 [...] Cholesterol, Total 160 mg/dL (Normal) Range: 100-199 55-Kit-413893:03 HgA1C , Office (90622) HgA1C , Office 6.1 % (Normal) Range: 4.6 - 7.1 :24 CBC W/AUTO DIFF WBC Comments: PATIENT WAS FASTINGPERFORMED BY: LabCoHudson County Meadowview HospitalFaqbhl7019 [facility] [address] [id number] Information: [id number] (93105) Immature Grans (Abs) 0.0 {x10E3/uL} (Normal) Range: [...] CREATININE RATIO Comments: PATIENT WAS FASTINGPERFORMED BY: ZYB Edkvnm9[address] [id number] (58672) AND (19538) Microalb/Creat Ratio 1223.8 {mg/g_creat} (Abnormal) Range: 0.0-30.0 Microalbumin, Urine 1012.1 ug/mL (Abnormal) Range: 0.0-17.0 Comments: Results confirmed ondilution. Creatinine, Urine 82.7 mg/dL (Normal) Range: 15.0-278.0 :24 METABOLIC PANEL, COMPREHENSIVE Comments: PATIENT WAS FASTINGPERFORMED BY: StarGreetz Ymnwrk7[address] [facility] [address] [id number] (63246) ALT (SGPT) 12 [iU]/L (Normal) Range: 0-32 [...] mg/dL (Abnormal) Range: 65-99 :24 LIPID PANEL (33138) Comments: PATIENT WAS FASTINGPERFORMED BY: [facility] Maijkl6[address] [id number] LDL/HDL Ratio 1.1 {ratio_units} (Normal) Range: 0.0-3.2 [...] Range: 100-199 :30 CBC W/Diff, Automated Comments: [facility] Urwsahwatm[address] [place], [place], [id number] Absolute Lymph 0.83 {X10_3/ul} (Normal) Range: 0.83-4.51 [...] (Normal) Range: 4.4-11.0 :30 Hemoglobin A1c Comments: [address] [place], [place], [address](774) HGB A1C 6.1 % (Normal) Range: 4.2-6.3 :30 Magnesium Comments: [address] [place], [place], [address](772) MG 1.8 mg/dL (Normal) Range: 1.8-2.4 :30 Protein+Creatinine Ratio,Urine Comments: [address] [place], [place], [address](047) PROT:CRE RATIO 2121 {mg/g_CRE} (Abnormal) Range: 0-200 PROTEIN,UR.RAN. 164.2 mg/dL (Abnormal) UR CREAT 77.40 mg/dL (Normal) :30 Renal Profile Comments: [facility] C[address]ugs[address] [place], [place], [id number](716) CO2 27.0 mmol/L (Normal) Range: 21.0-32.0 CL [...] 126 mg/dLsuggests DIABETES MELLITUS per A.D.A. criteria. 53-Ndv-16137:00 24 HR UR Creatinine Clearance Comments: [facility] Yaflevkzmx[address] [facility] [place], [place], [id number] CREAT CLEARANCE 24 ml/min (Abnormal) Range: 100-200 URINE CREAT 20.6 mg/dL (Normal) EST GFR - AA 38 mL/min (Abnormal) Comments: GFR Calc EST GFR 31 mL/min (Abnormal) Comments: Non- GFR Calc SERUM CREAT 1.7 mg/dL (Abnormal) Range: 0.6-1.0 UR TOTAL VOLUME 2800 mL (Normal) UR COLLECT TIME 24.0 {HOURS} (Normal) 85-Myl-55352:00 Protein, Urine 24HR Comments: [facility] Wkgutoqhgf[address] [facility], [address] 24hr UR PROTEIN 1178.8 {mg/24HR} (Abnormal) URINE PROTEIN 42.1 mg/dL (Abnormal) UR TOTAL VOLUME 2800 mL (Normal) UR COLLECT TIME 24.0 {HOURS} (Normal) 1-Omj-088143:29 Metabolic Panel, Basic Comments: PATIENT NOT FASTINGPERFORMED BY: LabCoHudson County Meadowview HospitalMcklpt13[address] [id number] Information: [id number] (94230) Calcium, Serum 9.3 mg/dL (Normal) Range: 8.7-10.3 [...] Basic Comments: tuesday; PATIENT NOT FASTINGPERFORMED BY: LabCoHudson County Meadowview HospitalSnmnpp17[address] [id number] Information: [id number] (22313) Calcium, Serum 9.0 mg/dL (Normal) Range: 8.7-10.3 [...] Glucose, Serum 149 mg/dL (Abnormal) Range: 65-99 50-Zms-755621:32 HgA1C , Office (31463) HgA1C , Office 6.2 % (Normal) Range: 4.6 - 7.1 :31 Rapid Strep Test, Office (87956) Comments: neg Rapid Strep Test, Office Negative (Normal) :06 THROAT CULTURE (48140) Comments: PATIENT NOT FASTINGPERFORMED BY: CB [facility] Xdkxnt1303 [address] RoadDublin [place] [id number] Information: [id number] Result 1 RRF (Normal) Comments: Routine respiratory luis Upper Respiratory Culture Final report (Normal) :52 TSH (19718) Comments: PATIENT WAS FASTINGPERFORMED BY: CB [facility] Ljzoaa8242 [address] RoadDublin [place] [id number] TSH 2.190 {uIU/mL} (Normal) Range: 0.450-4.500 :52 Vitamin D Hydroxy (74146) Comments: PATIENT WAS FASTINGPERFORMED BY: CB [facility] Xvpowd1206 [address] RoadDublin [place] [id number] Vitamin D, 25-Hydroxy 43.8 ng/mL (Normal) Range: 30.0-100.0 Comments: Vitamin D deficiency has been defined by the [place] ofMedicine and an Endocrine Society practice guideline as alevel of serum 25-OH vitamin D less than 20 ng/mL (1,2).The Endocrine Society went on to further define vitamin Dinsufficiency as a level between 21 and 29 ng/mL (2).1. IOM ([place] of Medicine). 2010. Dietary reference intakes for calcium and D. [place]: The National Academies Press.2. Mira MF, Rosette NC, Tommy SWAIN, et al. Evaluation, treatment, and prevention of vitamin D deficiency: an Endocrine Society clinical practice guideline. JCEM. 2010; 96(7):1911-30. :52 LIPID PANEL (55597) Comments: PATIENT WAS FASTINGPERFORMED BY: CB [facility] Zmftoq0699 [address] RoadDublin [place] [id number] LDL/HDL Ratio 1.3 {ratio_units} (Normal) Range: 0.0-3.2 [...] auto diff Comments: PATIENT WAS FASTINGPERFORMED BY: LabCoHudson County Meadowview HospitalFwvgux22[address] [id number] Information: [id number] (12776) Immature Grans (Abs) 0.0 {x10E3/uL} (Normal) Range: [...] COMPREHENSIVE Comments: PATIENT WAS FASTINGPERFORMED BY: LabCo Xgadpt[address] [id number] (25269) ALT (SGPT) 19 [iU]/L (Normal) Range: 0-32 [...] (Abnormal) Range: 65-99 :08 HgA1C , Office (62457) HgA1C , Office 6.4 % (Normal) Range: 4.6 - 7.1 [id number] Creatinine Clearance Comments: PATIENT NOT FASTINGPERFORMED BY: [facility] [id number] Information: [id number] S TART Creatinine Clearance 33 mL/min (Abnormal) Range: 88-128 Comments: The above range is based on 1.73 square meter average body surfacearea. Creatinine, Ur 24hr 642.0 {mg/24_hr} (Abnormal) Range: 800.0-1800.0 Creatinine, Urine 34.7 mg/dL (Normal) Range: 15.0-278.0 eGFR If Africn Am 43 mL/min/1.73 (Abnormal) eGFR If NonAfricn Am 37 mL/min/1.73 (Abnormal) Creatinine, Serum 1.37 mg/dL (Abnormal) Range: 0.57-1.00 [id number]:00 Protein Total, Qn, 24-Hr Comments: PATIENT NOT FASTINGPERFORMED BY: [facility] [id number] Urine Prot,24hr calculated 1309.8 {mg/24_hr} (Abnormal) Range: 30.0-150.0 Protein,Total,Urine 70.8 mg/dL (Abnormal) Range: 0.0-15.0 :01 CBC W/Diff, Automated Comments: Test performed at:[facility] [address] [place] [address] Absolute Neut 3.1 {X10_3/uL} (Normal) [...] Range: 4.4-11.0 :01 Magnesium Comments: Test performed at:[facility] [address] [place], [place] [address] 80741 MG 2.0 mg/dL (Normal) Range: 1.8-2.4 :01 Protein+Creatinine Ratio,Urine Comments: Test performed at:[facility] [address] [place] [address] 11511 PROT:CRE RATIO 2232 {mg/g_CRE} (Abnormal) Range: 0-200 PROTEIN,UR.RAN. 160.3 mg/dL (Abnormal) UR CREAT 71.8 mg/dL (Normal) :01 Renal Profile Comments: Test performed at:[facility] L[address] [place] [address] 35875 CO2 32.0 mmol/L (Normal) Range: 21.0-32.0 CL [...] mg/dL (Normal) Range: 70-110 :08 LIPID PANEL (03683) Comments: PATIENT WAS FASTINGPERFORMED BY: CableOrganizer.comHudson County Meadowview HospitalPqatja8623 [facility] [id number] LDL/HDL Ratio 1.0 {ratio_units} (Normal) Range: 0.0-3.2 [...] METABOLIC PANEL, Comments: PATIENT WAS FASTINGPERFORMED BY: CableOrganizer.comHudson County Meadowview HospitalMgoish0624 [facility] [id number] Information: [id number] COMPREHENSIVE (55329) ALT (SGPT) 29 [iU]/L (Normal) Range: 0-32 [...] (Abnormal) Range: 65-99 :59 HgA1C , Office (32671) HgA1C , Office 6.5 % (Normal) Range: 4.6 - 7.1 :54 CBC W/AUTO DIFF WBC Comments: PATIENT WAS FASTINGPERFORMED BY: LabCoHudson County Meadowview HospitalCgbypu3787 [facility] [id number] Information: [id number] (47878) Immature Grans (Abs) 0.0 {x10E3/uL} (Normal) Range: [...] COMPREHENSIVE Comments: PATIENT WAS FASTINGPERFORMED BY: [facility] Zqdizq8174 [address] [id number]; non- emergent till apt (61521) ALT (SGPT) 13 [iU]/L (Normal) Range: 0-32 [...] mg/dL (Abnormal) Range: 65-99 :54 LIPID PANEL (46279) Comments: PATIENT WAS FASTINGPERFORMED BY: LabCoHudson County Meadowview HospitalIleypg2870 [facility] [id number] LDL/HDL Ratio 1.1 {ratio_units} (Normal) Range: 0.0-3.2 [...] (Normal) Range: 100-199 :29 HgA1C , Office (63137) HgA1C , Office 6.6 % (Normal) Range: 4.6 - 7.1 :12 CBC W/Diff, Automated Comments: Test performed at:[facility] [address] [place] [address] ; handled by Dr. Santana [...] Range: 4.4-11.0 :12 Magnesium Comments: Test performed at:[facility] [address] [place] [address]415 MG 2.0 mg/dL (Normal) Range: 1.8-2.4 :12 Microalb:Creat Ratio,Random UR Comments: Test performed at:[facility] [address] [place] [address] ; Dr. Angelo LING:CREAT 1483.0 {mg/g_CRE} (Abnormal) MICROALBUMIN,UR 918.0 mg/L (Normal) UR CREAT 61.9 mg/dL (Normal) :12 Renal Profile Comments: Test performed at:[facility] F[address]sm[address] [place] [address] 31648 CO2 29.0 mmol/L (Normal) Range: 21.0-32.0 CL [...] 126 mg/dLsuggests DIABETES MELLITUS per A.D.A. criteria. 34-Anx-999831:20 LIPID PANEL (84272) Comments: PATIENT WAS FASTINGPERFORMED BY: CableOrganizer.comHudson County Meadowview HospitalPlxczf6911 [facility] [id number] LDL/HDL Ratio 1.0 {ratio_units} (Normal) Range: 0.0-3.2 [...] Cholesterol, Total 151 mg/dL (Normal) Range: 100-199 56-Pqk-793434:20 METABOLIC PANEL, Comments: PATIENT WAS FASTINGPERFORMED BY: CableOrganizer.comHudson County Meadowview HospitalOtpiqu3053 [facility] [address] [id number] Information: [id number] COMPREHENSIVE (73033) ALT (SGPT) 16 [iU]/L (Normal) Range: 0-32 [...] Glucose, Serum 148 mg/dL (Abnormal) Range: 65-99 74-Zgr-911046:21 CREATININE CLEARANCE Comments: PATIENT WAS FASTINGPERFORMED BY: LabCovenant Medical Center6370 [address] [id number] Information: [id number] START 04/02/14@9AM FINISH 04/03/14 6:00 AM (42219) Creatinine Clearance 42 mL/min (Abnormal) Range: 88-128 Comments: The above range is based on 1.73 square meter average body surfacearea. Creatinine, Ur 24hr 812.3 {mg/24_hr} (Normal) Range: 800.0-1800.0 Creatinine, Urine 28.5 mg/dL (Normal) Range: 15.0-278.0 eGFR If Africn Am 45 mL/min/1.73 (Abnormal) eGFR If NonAfricn Am 39 mL/min/1.73 (Abnormal) Creatinine, Serum 1.33 mg/dL (Abnormal) Range: 0.57-1.00 21-Hjc-785014:21 Total Protein,24 Hour Urine Comments: PATIENT WAS FASTINGPERFORMED BY: AnimalvitaeCovenant Medical Center6370 [facility] [address] [id number] (23910) Prot,24hr calculated 1559.0 {mg/24_hr} (Abnormal) Range: 30.0-150.0 Protein,Total,Urine 54.7 mg/dL (Abnormal) Range: 0.0-15.0 :57 LIPID PANEL (31254) Comments: PATIENT WAS FASTINGPERFORMED BY: AnimalvitaeCovenant Medical Center6370 [facility] [address] [id number] LDL/HDL Ratio 1.1 {ratio_units} (Normal) Range: 0.0-3.2 [...] MANUAL DIFF Comments: PATIENT WAS FASTINGPERFORMED BY: [facility]6[address] [id number] Information: [id number] (69801) Immature Grans (Abs) 0.0 {x10E3/uL} (Normal) Range: [...] PANEL, COMPREHENSIVE Comments: PATIENT WAS FASTINGPERFORMED BY: LabCoHudson County Meadowview HospitalWzpokh5673 [facility] [address] [id number] (82348) ALT (SGPT) 10 [iU]/L (Normal) Range: 0-32 [...] Comments: Result Units: mg/dL AdultPerformed at: [facility] [address] [id number] Director: Yousuf Bernardo PhD, Phone: [phone] C4 37 (Abnormal) Range: 9-36 0 [...] 75.6 mg/dL (Abnormal) CREU 49.3 mg/dL (Normal) 07-Wft-61441:21 CBC WITH MANUAL DIFF Comments: PATIENT WAS FASTINGPERFORMED BY: LabCoHudson County Meadowview HospitalPzbuvi2715 [facility] [address] [id number] Information: [id number] (05885) Immature Grans (Abs) 0.0 {x10E3/uL} (Normal) Range: [...] 3.77-5.28 WBC 4.5 {x10E3/uL} (Normal) Range: 3.4-10.8 08-Vvq-33799:21 METABOLIC PANEL, COMPREHENSIVE Comments: PATIENT WAS FASTINGPERFORMED BY: LabCoHudson County Meadowview HospitalIdlbse1497 [facility] [id number] (09135) ALT (SGPT) 16 [iU]/L (Normal) Range: 0-32 [...] Glucose, Serum 132 mg/dL (Abnormal) Range: 65-99 56-Ciu-069480:53 CREATININE CLEARANCE Comments: PATIENT NOT FASTINGPERFORMED BY: LabCoHudson County Meadowview HospitalYfcgeu3641 [facility] [id number] Information: [id number] START 10/30/13@8AM F INISH 10/31/13@8AM 2650ML (27003) Creatinine Clearance 44 mL/min (Abnormal) Range: 88-128 Comments: The above range is based on 1.73 square meter average body surfacearea. Creatinine, Ur 24hr 877.2 {mg/24_hr} (Normal) Range: 800.0-1800.0 Creatinine, Urine 33.1 mg/dL (Normal) Range: 15.0-278.0 eGFR If Africn Am 44 mL/min/1.73 (Abnormal) eGFR If NonAfricn Am 38 mL/min/1.73 (Abnormal) Creatinine, Serum 1.37 mg/dL (Abnormal) Range: 0.57-1.00 80-Mlf-202233:53 Total Protein,24 Hour Urine Comments: PATIENT NOT FASTINGPERFORMED BY: [employer] [id number] (07944) Prot,24hr calculated 3458.3 {mg/24_hr} (Abnormal) Range: 30.0-150.0 Protein,Total,Urine 130.5 mg/dL (Abnormal) Range: 0.0-15.0 36-Cyi-174521:31 HgA1C , Office (67745) HgA1C , Office 6.4 % (Normal) Range: 4.6 - 7.1 63-Uhj-924011:27 Microscopic Examination Comments: PATIENT WAS FASTINGPERFORMED BY: [employer] [address] [id number] Bacteria Few (Normal) Mucus Threads Present (Normal) Epithelial Cells (non renal) 0-10 {/hpf} (Normal) Range: 0 - 10 RBC 3-10 {/hpf} (Abnormal) Range: 0 - 2 WBC 6-10 {/hpf} (Abnormal) Range: 0 - 5 :32 LIPID PANEL (23957) Comments: PATIENT WAS FASTINGPERFORMED BY: [employer] [id number] LDL/HDL Ratio 1.0 {ratio_units} (Normal) Range: 0.0-3.2 [...] CREATININE RATIO Comments: PATIENT WAS FASTINGPERFORMED BY: [employer] [address] [id number] (00954) AND (82147) Microalb/Creat Ratio 1998.9 {mg/g_creat} (Abnormal) Range: 0.0-30.0 Creatinine, Urine 73.4 mg/dL (Normal) Range: 15.0-278.0 Microalbumin, Urine 1467.2 ug/mL (Abnormal) Range: 0.0-17.0 :32 URINALYSIS, W/ MICRO (65156) Comments: PATIENT WAS FASTINGPERFORMED BY: CableOrganizer.comHudson County Meadowview HospitalQpcdhu4544 [facility] [address] [id number] Microscopic Examination See below: (Normal) Comments: Microscopic was indicated and was performed. Nitrite, Urine Negative (Normal) Urobilinogen,Semi-Qn 0.2 mg/dL (Normal) Range: 0.0-1.9 Bilirubin Negative (Normal) Occult Blood Trace (Abnormal) Ketones Negative (Normal) Glucose Negative (Normal) Protein 3+ (Abnormal) WBC Esterase Trace (Abnormal) Appearance Clear (Normal) Urine-Color Yellow (Normal) pH 6.5 (Normal) Range: 5.0-7.5 Specific [place]ola 1.015 (Normal) Range: 1.005-1.030 :32 CBC WITH MANUAL DIFF Comments: PATIENT WAS FASTINGPERFORMED BY: AnimalvitaeCovenant Medical Center6370 [address] [id number] Information: [id number] (19653) Immature Grans (Abs) 0.0 {x10E3/uL} (Normal) Range: [...] 3.77-5.28 WBC 3.7 {x10E3/uL} (Normal) Range: 3.4-10.8 58-Wki-67845:32 METABOLIC PANEL, COMPREHENSIVE Comments: PATIENT WAS FASTINGPERFORMED BY: LabCoHudson County Meadowview HospitalUujmcs6340 [facility] [id number] (58382) ALT (SGPT) 16 [iU]/L (Normal) Range: 0-32 [...] B-12 (CYANOCOBALAMIN) Comments: PATIENT WAS FASTINGPERFORMED BY: ZYBHudson County Meadowview HospitalMajxsh4376 [facility] [address] [id number] (59825) Vitamin B12 >1999 pg/mL (Abnormal) Range: 211-946 45-Eft-432014:01 HgA1C , Office (43842) HgA1C , Office 6.4 % (Normal) Range: 4.6 - 7.1 :37 METABOLIC PANEL, COMPREHENSIVE Comments: PATIENT WAS FASTINGPERFORMED BY: [employer] Ohwaes5089 [address] [id number] (44320) ALT (SGPT) 12 [iU]/L (Normal) Range: 0-32 [...] (Abnormal) Range: 65-99 :37 Vitamin D Hydroxy (22434) Comments: PATIENT WAS FASTINGPERFORMED BY: [employer]6370 [facility] [id number] Vitamin D, 25-Hydroxy 47.4 ng/mL (Normal) Range: 30.0-100.0 Comments: Vitamin D deficiency has been defined by the [place] ofProm[facility] Memorial Hospitalcine and an Endocrine Society practice guideline as alevel of serum 25-OH vitamin D less than 20 ng/mL (1,2).The Endocrine Society went on to further define vitamin Dinsufficiency as a level between 21 and 29 ng/mL (2).1. IOM ([place] of Medicine). 2010. Dietary reference intakes for calcium and D. [place]: The National Academies Press.2. Mira MF, Rosette [place], Tommy SWAIN, et al. Evaluation, treatment, and prevention of vitamin D deficiency: an Endocrine Society clinical practice guideline. JCEM. 2010; 96(7):1911-30. :37 LIPID PANEL (67906) Comments: PATIENT WAS FASTINGPERFORMED BY: [employer] Cagasj8921 [address] [id number] LDL/HDL Ratio 1.2 {ratio_units} (Normal) Range: 0.0-3.2 [...] DIFF Comments: PATIENT WAS FASTINGPERFORMED BY: EVE CableOrganizer.comHudson County Meadowview HospitalRvogsi2525 [address] [id number] Information: [id number] (83039) Immature Grans (Abs) 0.0 {x10E3/uL} (Normal) Range: [...] Qn, 24-Hr Comments: PATIENT NOT FASTINGPERFORMED BY: [employer] Vpsjvk3254 [facility] [id number] Information: ADD [id number] AND DRAW FEE 99 6660 VOLUME 2600 164LBS 5' '3 Urine Prot,24hr calculated 920.4 {mg/24_hr} Range: 30.0-150.0 (Abnormal) Protein,Total,Urine 35.4 mg/dL Range: 0.0-15.0 (Abnormal) : Written Authorization WAR (Normal) Comments: PATIENT NOT FASTINGPERFORMED BY: LabCoHudson County Meadowview HospitalOlmsnq7170 [facility] [address] [id number] Comments: Written Authorization Received.Authorization received from Chiqui BRICEÑO LPN [id number] by Marleen Sharma :52 Metabolic Panel, Basic Comments: PATIENT NOT FASTINGPERFORMED BY: AnimalvitaeSaint Luke'S East Hospital Unzgpt4211 [address] [id number] Information: ADD [id number] AND DRAW FEE 99 6660 VOLUME 2600 164LBS 5' '3 (59314) Calcium, Serum 9.7 mg/dL (Normal) Range: 8.6-10.2 [...] mg/dL (Abnormal) Range: 65-99 :52 CREATININE CLEARANCE (79314) Comments: PATIENT NOT FASTINGPERFORMED BY: AnimalvitaeCovenant Medical Center6[address] [id number] Creatinine Clearance 46 mL/min (Abnormal) Range: 88-128 Comments: The above range is based on 1.73 square meter average body surfacearea. Creatinine, Ur 24hr 899.6 {mg/24_hr} (Normal) Range: 800.0-1800.0 Creatinine, Urine 34.6 mg/dL (Normal) Range: 15.0-278.0 :52 24 hour urine for Protein Comments: PATIENT NOT FASTINGPERFORMED BY: AnimalvitaeCovenant Medical Center6[address] [id number] (64292) Microalb/Creat Ratio 695.4 {mg/g_creat} (Abnormal) Range: 0.0-30.0 Microalbumin, Urine 240.6 ug/mL (Abnormal) Range: 0.0-17.0 :13 HgA1C , Office (92983) HgA1C , Office 6.3 % (Normal) Range: 4.6 - 7.1 :01 Blood Glucose , Office (39607) Blood Glucose , Office 162 (Normal) 29-Nzi-137722:02 Microscopic Examination Comments: PATIENT NOT FASTINGPERFORMED BY: LabCovenant Medical Center6370 [address] [id number] Bacteria Few (Normal) Mucus Threads Present (Normal) [...] Hebert M.D.October 19, 2012 at 2:42:14 PM [id number] Signed GP/GP If you are the referring physician and would like to consult [facility] theradiologist who provided this interpretation, please contact Yasmany Pond at [phone]. If this radiologist is unavailable, youwill be directed to another radiologist to assist. If y ou are a patient with a question regarding this report, pleasecontactyour referring physician directly. Professional Interpretation Provided By: [employer], Phone , These documents contain legally protected [...] 10/19/12 1444 Sign by: Misael Hebert MD 47-Pic-715909:59 TSH (24413) Comments: PATIENT WAS FASTINGPERFORMED BY: Bedford EnergyFormerly [facility] [id number] TSH 1.230 {uIU/mL} (Normal) Range: 0.450-4.500 42-Pij-816400:59 LIPID PANEL (14583) Comments: PATIENT WAS FASTINGPERFORMED BY: [employer]70 [facility] [id number] LDL/HDL Ratio 0.5 {ratio_units} (Normal) Range: 0.0-3.2 LDL Cholesterol Calc 47 mg/dL (Normal) Range: 0-99 Cholesterol, Total 149 mg/dL (Normal) Range: 100-199 HDL Cholesterol 91 mg/dL (Normal) Comments: According to ATP-III Guidelines, HDL-C >59 mg/dL is considered anegative risk factor for CHD. Triglycerides 57 mg/dL (Normal) Range: 0-149 VLDL Cholesterol Cesar 11 mg/dL (Normal) Range: 5-40 94-Koo-258468:02 URINALYSIS, W/ MICRO Comments: PATIENT NOT FASTINGPERFORMED BY: [employer]70 [facility] [id number] Information: [id number] (58080) Microscopic Examination See below: (Normal) Nitrite, Urine Negative (Normal) Bilirubin Negative (Normal) Urobilinogen,Semi-Qn 0.2 mg/dL (Normal) Range: 0.0-1.9 Occult Blood Negative (Normal) Ketones Negative (Normal) Glucose Negative (Normal) Protein 3+ (Abnormal) WBC Esterase Negative (Normal) Appearance Clear (Normal) Urine-Color Yellow (Normal) pH 5.5 (Normal) Range: 5.0-7.5 Specific [place] 1.015 (Normal) Range: 1.005-1.030 74-Jqk-990071:59 CBC WITH MANUAL DIFF Comments: PATIENT WAS FASTINGPERFORMED BY: LabCoHudson County Meadowview HospitalUyfdcy9634 [facility] [id number] Information: [id number] (00528) Immature Grans (Abs) 0.0 {x10E3/uL} (Normal) Range: [...] 3.77-5.28 WBC 4.8 {x10E3/uL} (Normal) Range: 3.4-10.8 13-Lik-819262:59 METABOLIC PANEL, COMPREHENSIVE Comments: PATIENT WAS FASTINGPERFORMED BY: LabCoHudson County Meadowview HospitalCstxdy7351 [facility] [id number] (45516) ALT (SGPT) 14 [iU]/L (Normal) Range: 0-32 [...] Glucose, Serum 104 mg/dL (Abnormal) Range: 65-99 6-Zyw-270047:37 HgA1C , Office (81456) HgA1C , Office 6.0 % (Normal) Range: 4.6 - 7.1 4-Xxs-676881:31 CRE CREAT 1.3 mg/dL (Abnormal) Range: 0.6-1.0 [...] Galan M.D.August 09, 2012 at 2:38:03 PM [id number] Signed PV/PV If you are the referring physician and would like to consult with theradiologist who provided this interpretation, please contact Donna Burnett M.D. at [phone]. If this radiologist is unavailable, youwillbe directed to another radiologist to assist. If you are a patient with a question regarding this report, pleasecontactyour referring physician evelyne cowan. Professional Interpretation Provided By: [employer], Phone , These documents contain legally protected [...] 08/09/12 1441 Sign by: Donna Martin MD 91-Rnw-081773:31 CBC with manual diff Comments: PATIENT NOT FASTINGPERFORMED BY: LabCo Nrxnup7817 [facility] [id number] Information: [id number] (51720) Immature Grans (Abs) 0.0 {x10E3/uL} (Normal) Range: [...] 3.77-5.28 WBC 3.2 {x10E3/uL} (Abnormal) Range: 4.0-10.5 41-Wrv-453817:31 Metabolic Panel, Comprehensive Comments: PATIENT NOT FASTINGPERFORMED BY: LabCoHudson County Meadowview HospitalBfwtny9098 [facility] [id number] (36166) ALT (SGPT) 19 [iU]/L (Normal) Range: 0-32 [...] mg/dL (Abnormal) Range: 65-99 :31 LIPID PANEL (68894) Comments: PATIENT WAS FASTINGPERFORMED BY: [employer] EnergyFormerly [facility] [id number] LDL/HDL Ratio 0.8 {ratio_units} (Normal) Range: 0.0-3.2 [...] MANUAL DIFF Comments: PATIENT WAS FASTINGPERFORMED BY: [employer] [facility] HospitalNumberPictureFormerly [facility] [id number] Information: [id number] (93138) Immature Grans (Abs) 0.0 {x10E3/uL} (Normal) Range: [...] PANEL, COMPREHENSIVE Comments: PATIENT WAS FASTINGPERFORMED BY: [facility] [id number] (42975) ALT (SGPT) 22 [iU]/L (Normal) Range: 0-32 [...] (Abnormal) Range: 65-99 :45 HgA1C , Office (80975) HgA1C , Office 6.1 % (Normal) Range: 4.6 - 7.1 32-Phs-160962:16 CRE CREAT 1.1 mg/dL (Abnormal) Range: 0.6-1.0 [...] Galan M.D.February 02, 2012 at 5:10:18 PM [id number] Signed PV/PV If you are the referring physician and w sarahild like to consult with theradiologist who provided this interpretation, please contact Donna Burnett M.D. at [phone]. If this radiologist is unavailable, youwillbe directed to another radiol ogist to assist. If you are a patient with a question regarding this report, pleasecontactyour referring physician directly. Professional Interpretation Provided By: [employer]View, Phone ,Fa x [phone] These documents contain legally protected and confidential [...] 02/02/121713 S ign by: Donna Martin MD 49-Xwm-137765:16 DEXA BONE DENSITY STUDY (HP) Radiology Report [...] Coronel M.D.January 20, 2012 at 2:43:46 PM [id number] Signed KERA/KERA If you ar e the [...] 01/20/12 1447 Sign by: David Coronel MD 24-Muh-171190:15 BILAT SCRN DIGITAL & CAD Radiology Report [...] Coronel M.D.January 20, 2012 at 1:20:11 PM [id number] Signed KERA/KERA If you are the referring physician and would like to consult with theradiologist who provided this interpretation, please contact Yasmany Parnell at . If this radiologist is unavailable,youwill be directed to another radiologist to assist. If you are a patient with a question regarding this report, pleasecontactyour referring physician directly. Professional Interpretation Provided By: [employer]View, Phone , These documents contain legally protected [...] 01/20/12 1324 Sign by: David Coronel MD 2-Puu-078308:56 PELVIC (NON ) Radiology Report See Note [...] Vuong M.D.January 10, 2012 at 8:39:09 PM [id number] Signed JOHNNY/JOHNNY If you are the referring physician and would like to consult with theradiologist who provided this inte rpretation, please contact Radha Vuong M.D. at [phone]. If this radiologist is unavailable, you will bedirected to another radiologist to assist. If you are a patient with a question regarding this r eport, pleasecontactyour referring physician directly. Professional Interpretation Provided By: [employer]View, Phone , PROCEDURE: ULTRASOUND OF THE FEMALE [...] Vuong M.D.January 10, 2012 at 8:40:07 PM [id number] Signed JOHNNY/JOHNNY If you are the referring physician and would like to consult with theradiologist who provided this interpretation, please contact Radha Vuong M.D. at [phone]. If this radiologist is unavailable, you will bedirected to another radiologist to assist. If you are a patient with a question regarding this report, pleasecontactyour referring ysician directly. Professional Interpretation Provided By: [employer], Phone , These documents contain legally [...] Dictated on 01/10/12 1309 by TATIANA VUONG MDPsychiatric ribed on 01/11/12 1113 by ITS IMPORTSign by RADHA VUONG MD on 01/11/12 1114 Sign by: RADHA VUONG MD 26-Xik-40890:35 MICROALBUMIN: CREATININE RATIO Comments: PATIENT WAS FASTINGPERFORMED BY: [employer] [facility] [id number] (80877) AND (10856) Microalb/Creat Ratio 829.4 {mg/g_creat} (Abnormal) Range: 0.0-30.0 Microalbumin, Urine 437.1 ug/mL (Abnormal) Range: 0.0-17.0 Creatinine, Urine 52.7 mg/dL (Normal) Range: 15.0-278.0 :35 CBC WITH MANUAL DIFF Comments: PATIENT WAS FASTINGPERFORMED BY: [employer]6[address] [facility] [id number] Information: [id number] (77744) Immature Grans (Abs) 0.0 {x10E3/uL} (Normal) Range: [...] 3.77-5.28 WBC 3.7 {x10E3/uL} (Abnormal) Range: 4.0-10.5 65-Bhm-08728:35 METABOLIC PANEL, COMPREHENSIVE Comments: PATIENT WAS FASTINGPERFORMED BY: LabCoHudson County Meadowview HospitalMrevju4914 [facility] [id number] (38354) ALT (SGPT) 15 [iU]/L (Normal) Range: 0-32 [...] mg/dL (Abnormal) Range: 65-99 :35 LIPID PANEL (14964) Comments: PATIENT WAS FASTINGPERFORMED BY: [employer] EnergyFormer[facility] [id number] LDL/HDL Ratio 0.9 {ratio_units} (Normal) Range: 0.0-3.2 LDL Cholesterol Calc 72 mg/dL (Normal) Range: 0-99 HDL Cholesterol 83 mg/dL (Normal) Comments: According to ATP-III Guidelines, HDL-C >59 mg/dL is considered anegative risk factor for CHD. VLDL Cholesterol Cesar 18 mg/dL (Normal) Range: 5-40 Triglycerides 90 mg/dL (Normal) Range: 0-149 Cholesterol, Total 173 mg/dL (Normal) Range: 100-199 :15 HgA1C , Office (69048) HgA1C , Office 6.2 % (Normal) Range: 4.6 - 7.1 :30 CBC WITH MANUAL DIFF Comments: PATIENT WAS FASTINGPERFORMED BY: ZYBSan Juan Regional Medical CenterGbgonu39[address] [place] [facility] [id number] Information: [id number] (10015) Immature Grans (Abs) 0.0 {x10E3/uL} (Normal) Range: [...] 3.77-5.28 WBC 4.2 {x10E3/uL} (Normal) Range: 4.0-10.5 68-Zhq-39680:30 METABOLIC PANEL, COMPREHENSIVE Comments: PATIENT WAS FASTINGPERFORMED BY: LabCoHudson County Meadowview HospitalKtsvhx6893 [facility] [id number] (26789) ALT (SGPT) 19 [iU]/L (Normal) Range: 0-40 [...] mg/dL (Abnormal) Range: 65-99 :30 LIPID PANEL (86663) Comments: PATIENT WAS FASTINGPERFORMED BY: LabCoHudson County Meadowview HospitalXzrvha2059 [facility] [id number] LDL/HDL Ratio 0.9 {ratio_units} (Normal) Range: 0.0-3.2 [...] note reference interval change :48 Rapid Flu (67632 x 2) Influenza A Ag negative (Normal) [...] redmond M.D.November 05, 2011 at 3:25:08 PM [id number] Signed GP/GP If you are the referring physician and would like to consult with theradiologist who provided this interpretation, please contact Yasmany Pond at [phone]. If this radiologist is unavailable, youwill be directed to another radiologist to assist. If you are a patient with a question regarding this report, ple asecontactyour referring physician directly. Professional Interpretation Provided By: [employer]View, Phone , These documents contain legally protected [...] redmond M.D.November 05, 2011 at 3:25:08 PM [id number] Signed GP/GP If you are the referring physician and would like to consult with theradiologist who provided this interpretation, please contact Yasmany Pond at [phone]. If this radiologist is unavailable, youwill be directed to another radiologist to assist. If you are a patient with a question regarding this report, ple asecontactyour referring physician directly. Professional Interpretation Provided By: [employer], Phone , These documents contain legally protected [...] on 11/05/111551 Sign by: Misael Hebert MD 27-Bse-204499:20 METABOLIC PANEL, Comments: PATIENT WAS FASTINGPERFORMED BY: LabCoHudson County Meadowview HospitalHysyvh4665 [facility] [id number] Information: [id number],2ND ORDER NO DRAW F COMPREHENSIVE (67471) ALT (SGPT) 31 [iU]/L (Normal) Range: 0-40 [...] Creatinine Clearance Comments: PATIENT WAS FASTINGPERFORMED BY: CableOrganizer.comHudson County Meadowview HospitalLilbfb5538 [facility] [id number] Information: 10/30@6AM 10/31@730AM Creatinine Clearance 58 mL/min [...] Qn, 24-Hr Comments: PATIENT WAS FASTINGPERFORMED BY: CableOrganizer.comHudson County Meadowview HospitalCyuvhm0871 [facility] [id number] Urine Prot,24hr calculated 1023.8 {mg/24_hr} (Abnormal) Range: 30.0-150.0 Protein,Total,Urine 52.5 mg/dL (Abnormal) Range: 0.0-15.0 :04 HgA1C , Office (76279) HgA1C , Office 6.1 % (Normal) Range: [...] regarding this repor t, please call our [id number] line @ Dictated on 07/27/11 1040 by GAYE PEREZ MDscribed on 07/28/111224 by ITS IMPORTSign by GAYE PEREZ MD on 07/28/111224 Sign by: GAYE PEREZ MD :54 Vitamin D Hydroxy (20250) Comments: PATIENT WAS FASTINGPERFORMED BY: Flipswap6370 [facility] InvestmentsFormerly [facility] [id number] Vitamin D, 25-Hydroxy 48.8 ng/mL (Normal) Range: 30.0-100.0 Comments: Vitamin D deficiency has been defined by the [place] of[place]icine and an Endocrine Society practice guideline as alevel of serum 25-OH vitamin D less than 20 ng/mL (1,2).The Endocrine Society went on to further define vitamin Dinsufficiency as a level between 21 and 29 ng/mL (2).1. IOM ([place] of Medicine). 2010. Dietary reference intakes for calcium and D. [place]: The National Academies Press.2. Mira MF, Rosette NC, Tommy SWAIN, et al. Evaluation, treatment, and prevention of vitamin D deficiency: an Endocrine Society clinical practice guideline. JCEM. 2010; 96(7):1911-30. :54 LIPID PANEL (31239) Comments: PATIENT WAS FASTINGPERFORMED BY: Flipswap6370 [facility]mentsFormer[facility] [id number] LDL/HDL Ratio 1.0 {ratio_units} (Normal) Range: 0.0-3.2 [...] MANUAL DIFF Comments: PATIENT WAS FASTINGPERFORMED BY: [employer] LabCell-A-Spot6370 [facility] [id number] Information: ADD [id number] AND DRAW FEE [id number] 0276 (83113) Immature Grans (Abs) 0.0 {x10E3/uL} (Normal) Range: [...] 3.77-5.28 WBC 4.3 {x10E3/uL} (Normal) Range: 4.0-10.5 11-Wvz-74646:54 METABOLIC PANEL, COMPREHENSIVE Comments: PATIENT WAS FASTINGPERFORMED BY: LabCoHudson County Meadowview HospitalSeyfbf6111 [facility] [id number] (38747) ALT (SGPT) 48 [iU]/L (Abnormal) Range: 0-40 [...] (Abnormal) Range: 65-99 :18 HgA1C , Office (16231) HgA1C , Office 6.1 % (Normal) Range: 4.6 - 7.1 :18 Blood Glucose , Office (11478) Blood Glucose , Office 103 (Normal) 42-Yhl-95577:00 ABDOMEN WITH AND W/O CONTRAST Radiology Report [...] radiologist regarding this report, please call our [id number] line @ Dictated on 03/18/11 1715 by Keaton MANN,JennieieTranscribed on 03/22/11 1401 by ITS IMPORTSign by Jeanette Hill MD on 03/22/11 1402 Sign by: Jeanette Pugh MD 65-Nza-123614:29 SERUM CRE & GFR CREAT,SERUM 1.1 mg/dL (Abnormal) Range: 0.6-1.0 15-Vtp-88736:00 BRAIN W/WO CONTRAST Radiology Report See Note [...] seen in the right frontal white matter gravity prospecting supervisor ior to themasswithout interval change. The cortical [...] 03/02/11 173 Sign by: Donna Martin MD 17-Lmf-92307:00 UPPER EXT. JOINT ONLY(ROUTINE) Radiology Report See [...] on 03/04/11 1035 Sign by: Ankur Duncan 16-Wek-036517:08 SHOULDER,MIN 2 VIEWS Radiology Report See Note [...] 02/01/11 1021 Sign by: ALEJANDRO DRUMMOND DO 46-Efp-164866:57 SINUS/FACIAL BONE Radiology Report See Note (Normal) [...] 01/19/11 1448 Sign by: Misael Hebert MD 79-Zda-26365:00 BRAIN W/WO CONTRAST Radiology Report See Note [...] addition, there is a small region of dyzxusauuO5qfxafxemcn along the anterior margin of the mass, [...] on 01/19/111650 Sign by: GAYE PEREZ MD 73-Rjn-85165:00 BRAIN/HEAD W/WO CONTRAST Radiology Report See Note [...] 01/19/11 1447 Sign by: Misael Hebert MD 34-Jxz-808909:08 BILAT SCRN DIGITAL & CAD Radiology Report [...] CREATININE RATIO Comments: PATIENT NOT FASTINGPERFORMED BY: LabCoHudson County Meadowview HospitalBtooch3917 [facility] [id number] (93036) AND (86973) Microalb/Creat Ratio 1028.4 {mg/g_creat} (Abnormal) Range: 0.0-30.0 Microalbumin, Urine 1341.0 ug/mL (Abnormal) Range: 0.0-17.0 Creatinine, Urine 130.4 mg/dL (Normal) Range: 15.0-278.0 :20 CBC WITH MANUAL DIFF (02324) Comments: PATIENT NOT FASTINGPERFORMED BY: LabCoHudson County Meadowview HospitalZklghu6183 [facility] [id number] Immature Grans (Abs) 0.0 {x10E3/uL} (Normal) Range: [...] {x10E3/uL} (Normal) Range: 4.0-10.5 :20 LIPID PANEL (96714) Comments: PATIENT NOT FASTINGPERFORMED BY: Adisn6370 [facility] [id number] LDL/HDL Ratio 0.9 {ratio_units} (Normal) Range: 0.0-3.2 [...] PANEL, COMPREHENSIVE Comments: PATIENT NOT FASTINGPERFORMED BY: Adisn6370 [facility] [id number] (83185) ALT (SGPT) 28 [iU]/L (Normal) Range: 0-40 [...] (Abnormal) Range: 65-99 :39 HgA1C , Office (13431) HgA1C , Office 6.5 % (Normal) Range: 4.6 - 7.1 :39 Blood Glucose , Office (88671) Blood Glucose , Office 128 (Normal) :19 CBC With Differential/Platelet Comments: PATIENT WAS FASTINGPERFORMED BY: LabCo Sgwysk3523 [facility] [id number] Immature Grans (Abs) 0.0 {x10E3/uL} (Normal) Range: [...] 3.80-5.10 WBC 5.6 {x10E3/uL} (Normal) Range: 4.0-10.5 3-Rqw-296419:19 Comp. Metabolic Panel (14) Comments: PATIENT WAS FASTINGPERFORMED BY: LabCoHudson County Meadowview HospitalFlggel1740 [facility] [id number]; appt 01/11/11 ALT (SGPT) 18 [iU]/L (Normal) [...] Glucose, Serum 113 mg/dL (Abnormal) Range: 65-99 3-Rbr-245197:19 Lipid Panel With LDL/HDL Comments: PATIENT WAS FASTINGPERFORMED BY: Flipswap6370 [facility] [id number] Ratio LDL/HDL Ratio 1.0 {ratio_units} Range: 0.0-3.2 [...] 0.800 {uIU/mL} Comments: PATIENT WAS FASTINGPERFORMED BY: [employer] [facility] Fwbqji1977 [facility] [id number] 2:19 (Normal) Range: 0.450-4.500 Vitamin D, 25-Hydroxy 44.0 ng/mL (Normal) Comments: PATIENT WAS FASTINGPERFORMED BY: [employer] [facility] Itdnmm1021 [facility] [id number] 2:19 Range: 32.0-100.0 Comments: Effective February 22, 2011 Vitamin D, 25-Hydroxy reference intervals will be changing to 30-100. .Recent studies consider the lower li sandra of 32.0 ng/mL to be athreshold for optimal health.Otf HAYES. J Nutr. 2004;135(2):317-22. 02-Liy-372030:54 HgA1C , Office (72910) HgA1C , Office 6.6 % (Normal) Range: 4.6 - 7.1 :54 Blood Glucose , Office (56976) Blood Glucose , Office 134 (Normal) :40 Creatinine Clearance Comments: PERFORMED BY: [employer] Fbdsio6808 [facility] [id number] Information: 10/07@7AM 10/08@3AM Creatinine Clearance 56 mL/min [...] Protein Total, Qn, 24-Hr Comments: PERFORMED BY: [employer] Xokudn0581 [facility]byDiscGenicsFormerly [facility] [id number] Urine Prot,24hr calculated 610.5 {mg/24_hr} (Abnormal) Range: 30.0-150.0 Protein,Total,Urine 40.7 mg/dL (Abnormal) Range: 0.0-15.0 :46 Vitamin D Hydroxy (00991) Comments: PATIENT WAS FASTINGPERFORMED BY: [employer] Yngvnt2503 [facility] [id number] Vitamin D, 25-Hydroxy 36.5 ng/mL (Normal) Range: 32.0-100.0 Comments: Recent studies consider the lower limit of 32.0 ng/mL to be athreshold for optimal health.Otf HAYES. J Nutr. 2004;135(2):317-22. :46 METABOLIC PANEL, COMPREHENSIVE Comments: PATIENT WAS FASTINGPERFORMED BY: [employer] Yjqdqt6579 [facility] [id number] (62594) ALT (SGPT) 34 [iU]/L (Normal) Range: 0-40 [...] Glucose, Serum 116 mg/dL (Abnormal) Range: 65-99 7-Upe-584295:46 LIPID PANEL (27613) Comments: PATIENT WAS FASTINGPERFORMED BY: LabCoHudson County Meadowview HospitalDugpbj4695 [facility] [id number] LDL Cholesterol Calc 85 mg/dL (Normal) Range: 0-99 LDL/HDL Ratio 1.2 {ratio_units} (Normal) Range: 0.0-3.2 VLDL Cholesterol Cesar 28 mg/dL (Normal) Range: 5-40 HDL Cholesterol 69 mg/dL (Normal) Comments: According to ATP-III Guidelines, HDL-C >59 mg/dL is considered anegative risk factor for CHD. Cholesterol, Total 182 mg/dL (Normal) Range: 100-199 Triglycerides 141 mg/dL (Normal) Range: 0-149 9-Dnq-313998:46 CBC WITH MANUAL DIFF Comments: PATIENT WAS FASTINGPERFORMED BY: LabCo Ndjegk3043 [facility] [id number] Information: [id number]; appt 10/12/10 (62410) Immature Grans (Abs) 0.0 {x10E3/uL} (Normal) Range: [...] (Normal) Range: 4.0-10.5 :07 HgA1C , Office (99228) HgA1C , Office 6.6 % (Normal) Range: 4.6 - 7.1 :07 Blood Glucose , Office (91036) Blood Glucose , Office 114 (Normal) 95-Cag-162519:00 Creatinine Clearance Comments: PERFORMED BY: [employer] Mieple [facility] [id number] Information: 12/31@8AM 01/01@4AM Creatinine Clearance 48 mL/min [...] Creatinine, Serum 1.20 mg/dL (Abnormal) Range: 0.57-1.00 15-Mtx-354448:00 Protein Total, Qn, 24-Hr Comments: PERFORMED BY: CableOrganizer.comHudson County Meadowview HospitalSujdyl3281 [facility] [id number] Urine Prot,24hr calculated 1070.6 {mg/24_hr} (Abnormal) Range: 30.0-150.0 Protein,Total,Urine 79.3 mg/dL (Abnormal) Range: 0.0-15.0 56-Ipm-118534:48 BILAT SCRN DIGITAL & CAD Radiology Report See Note (Normal) Comments: Exam Number: [id number] MAMMOGRAPHY - BILATERAL SCREENING INDICATION:Routine annual screening [...] of attaching a ResultCode to this exam.ADDENDUM: [id number] HPBI/MDS Reported By: MISAEL HEBERT 91-Raf-548748:48 DEXA BONE DENSITY STUDY (HP) Radiology Report See Note (Normal) Comments: Exam Number: [id number] CLINICAL:This is a 69-year-old female patient with postmenopausal screening. EXAMINATION:DUAL ENERGY X-RAY ABSORPTIOMETRY / DEXA. TECHNIQUE:Bone Density Measurements (BMD) of lumb ar spine and bilateral hipswere obtained using a [employer] scanner.. COMPARISON:None. FINDINGS: Lumbar Spine (L1-L4): g/cm2 [...] Osteoporosis Foundation http://www.nof.org Reported By: MISAEL HEBERT 57-Org-627361:29 HgA1C , Office (33942) HgA1C , Office 6.5 % (Normal) Range: 4.6 - 7.1 12-Jci-199284:29 Blood Glucose , Office (97347) Blood Glucose , Office 109 (Normal) 90-Fpg-43192:05 CBC With Differential/Platelet Comments: PATIENT WAS FASTINGPERFORMED BY: [facility] Arzxwn4961 [facility] [id number] Immature Grans (Abs) 0.0 {x10E3/uL} (Normal) Range: [...] 3.80-5.10 WBC 3.9 {x10E3/uL} (Abnormal) Range: 4.0-10.5 27-Fwr-99646:05 Comp. Metabolic Panel (14) Comments: PATIENT WAS FASTINGPERFORMED BY: [facility] Dosimz6371 [facility] [id number] ALT (SGPT) 20 [iU]/L (Normal) Range: 0-40 [...] With LDL/HDL Comments: PATIENT WAS FASTINGPERFORMED BY: [employer]70 [facility] [id number] Ratio HDL Cholesterol 54 mg/dL (Normal) Comments: [...] ng/mL (Normal) Comments: PATIENT WAS FASTINGPERFORMED BY: [employer] [facility] Epsrcr2130 [facility] [id number] :05 Range: 32.0-100.0 Comments: Recent studies consider the lower limit of 32.0 ng/mL to be athreshold for optimal health.Otf HAYES. J Nutr. 2004;135(2):317-22. :41 SPLEEN (HP) Radiology Report See Note (Normal) Comments: Exam Number: [id number] ULTRASOUND OF THE SPLEEN A goal directed [...] Protein, 0.5 mg/L (Normal) Comments: PERFORMED BY: [employer] Rdnrvy0573 [facility] [id number] 10:54 Quant Range: 0.0-4.9 17-Jun-2009 Hemoglobin A1c 6.3 % (Abnormal) Comments: PERFORMED BY: [employer] Rjpijv1239 [facility] [id number] 10:54 Range: 4.8-5.6 Comments: Increased risk for diabetes: 5.7 - 6.4Diabetes: >6.4Glycemic control for adults with diabetes: <7.0.Please note reference interval change 17-Jun-2009 Sedimentation 4 mm/h (Normal) Comments: PERFORMED BY: [employer] Mieple [facility] [id number] 10:54 Rate-Westergren Range: 0-30 17-Jun-2009 Vitamin B12 1372 pg/mL Comments: PERFORMED BY: [employer]70 [facility] [id number] 10:54 (Abnormal) Range: 211-911 Comments: Effective July 14, 2009, Vitamin B12 will bechanging to the [place] ECLIA methodology. Thereference interval will be changing to:211 - 946 pg/mL 17-Jun-2009 Vitamin D, 25-Hydroxy 37.7 ng/mL Comments: PERFORMED BY: [employer] Ntzohs5332 [facility] [id number] 10:54 (Normal) Range: 32.0-100.0 Comments: Recent studies consider the lower limit of 32.0 ng/mL to be athreshold for optimal health.Otf HAYES. J Nutr. 2004;135(2):317-22. 43-Rbc-597495:34 Vitamin D Hydroxy Comments: PATIENT NOT FASTINGPERFORMED BY: [employer] Oaxnww7290 [facility] [id number] Information: [id number],2ND ORDER NO DRAW F EE (45221) Vitamin D, 25-Hydroxy 48.5 ng/mL (Normal) Range: 30.0-100.0 Comments: Vitamin D deficiency has been defined by the [place] ofMedicine and an Endocrine Society practice guideline as alevel of serum 25-OH vitamin D less than 20 ng/mL (1,2).The Endocrine Society went on to further define vitamin Dinsufficiency as a level between 21 and 29 ng/mL (2).1. IOM ([place] of Medicine). 2010. Dietary reference intakes for calcium and D. [place]: The National Academies Press.2. Mira MF, Rosette LOPEZ, Tommy SWAIN, et al. Evaluation, treatment, and prevention of vitamin D deficiency: an Endocrine Society clinical practice guideline. JCEM. 2010; 96(7):1911-30. :50 HgA1C , Office (94582) HgA1C , Office 6.7 % (Normal) Range: 4.6 - 7.1 :50 Blood Glucose , Office (54986) Blood Glucose , Office 117 (Normal) 29-Wtw-359077:12 CBC With Differential/Platelet Comments: PERFORMED BY: LabCoHudson County Meadowview HospitalXgcxju1500 [facility] [id number] Information: 06/10@6AM3/10@330AM Hematology Comments: Note: (Normal) Comments: [...] 3.80-5.10 WBC 3.6 {x10E3/uL} (Abnormal) Range: 4.0-10.5 67-Mps-966445:12 Comp. Metabolic Panel (14) Comments: PERFORMED BY: [facility]6[address] [facility] [id number] Alkaline Phosphatase, S 68 [iU]/L (Normal) Range: [...] Glucose, Serum 124 mg/dL (Abnormal) Range: 65-99 19-Rqy-992395:12 Creatinine Clearance Comments: PERFORMED BY: [facility] EnergyFormer[facility] [id number] Creatinine Clearance 49 mL/min (Abnormal) Range: 88-128 Comments: The above range is based on 1.73 square meter average body surfacearea. Creatinine, Ur 24hr 800.0 {mg/24_hr} (Normal) Range: 800.0-1800.0 Creatinine, Urine 40.0 mg/dL (Normal) Range: 15.0-278.0 95-Edc-152783:12 Lipid Panel With LDL/HDL Comments: PERFORMED BY: [facility] [id number] Ratio HDL Cholesterol 61 mg/dL (Normal) Comments: According to ATP-III Guidelines, HDL-C >59 mg/dL is considered anegative risk factor for CHD. LDL Cholesterol Calc 74 mg/dL (Normal) Range: 0-99 LDL/HDL Ratio 1.2 {ratio_units} (Normal) Range: 0.0-3.2 VLDL Cholesterol Cesar 17 mg/dL (Normal) Range: 5-40 Cholesterol, Total 152 mg/dL (Normal) Range: 100-199 Triglycerides 87 mg/dL (Normal) Range: 0-149 53-Naz-304039:12 Protein Total, Qn, 24-Hr Comments: PERFORMED BY: [facility] [id number] Urine Prot,24hr calculated 1172.0 {mg/24_hr} Range: 30.0-150.0 (Abnormal) Protein,Total,Urine 58.6 mg/dL (Abnormal) Range: 0.0-15.0 TSH 1.280 {uIU/mL} Comments: PERFORMED BY: AnimalvitaeCoHudson County Meadowview HospitalNmfpbo9531 [facility] [id number] 1:12 (Normal) Range: 0.450-4.500 :58 HgA1C , Office (20937) HgA1C , Office 6.0 % (Normal) Range: 4.6 - 7.1 :58 Blood Glucose , Office (55523) Blood Glucose , Office 113 (Normal) :03 CBC With Differential/Platelet Comments: PATIENT WAS FASTINGPERFORMED BY: CableOrganizer.comHudson County Meadowview HospitalMqrpzz4117 [facility] [id number] Baso (Absolute) 0.0 {x10E3/uL} (Normal) Range: 0.0-0.2 [...] 11.7-15.0 WBC 3.2 {x10E3/uL} (Abnormal) Range: 4.0-10.5 6-Wci-887226:03 Comp. Metabolic Panel (14) Comments: PATIENT WAS FASTINGPERFORMED BY: LabCoHudson County Meadowview HospitalVgumpq9442 [facility] [id number] A/G Ratio 2.0 (Normal) Range: 1.1-2.5 Albumin, [...] Glucose, Serum 116 mg/dL (Abnormal) Range: 65-99 0-Mpf-934632:03 Lipid Panel With LDL/HDL Comments: PATIENT WAS FASTINGPERFORMED BY: [employer]70 [facility]Former[facility] [id number] Ratio Cholesterol, Total 167 mg/dL (Normal) Range: [...] ng/mL (Normal) Comments: PATIENT WAS FASTINGPERFORMED BY: [employer]70 [facility]Former[facility] [id number] :03 Range: 32.0-100.0 Comments: Recent studies consider the lower limit of 32.0 ng/mL to be athreshold for optimal health.Otf HAYES. J Nutr. 2004;135(2):317-22. 76-Qvv-000376:32 Urinalysis, Office (43730) UA - BILIRUBIN Negative (Normal) UA - BLOOD Hemolyzed Trace (Normal) UA - GLUCOSE Negative (Normal) UA - KETONES Negative mg/dL (Normal) UA - LEUKOCYTE ESTERASE Negative (Normal) UA - NITRITE Negative (Normal) UA - PH 6.5 (Normal) UA - PROTEIN 300 mg/dL (Normal) UA - SPECIFIC GRAVITY 1.020 (Normal) URINE UROBILINGN JATINDER TIMED 2 mg/dL (Normal) 0-Vqo-109134:19 URINE SETH CULTURE-JATINDER COL Comments: PATIENT NOT FASTINGClinical Information: SRC:UR ADD [id number] PERFORMED BY: [employer]70 [facility] [id number] COUNT (53668) Result 1 ECV (Normal) Comments: Escherichia coli, [...] report (Normal) Culture,Comprehensiv e 09-Jan-20098:17 Urinalysis, Office (74812) UA - BILIRUBIN Negative (Normal) UA - BLOOD Hemolyzed Large (Normal) UA - GLUCOSE Negative (Normal) UA - KETONES Negative mg/dL (Normal) UA - LEUKOCYTE ESTERASE Moderate (Normal) UA - NITRITE Negative (Normal) UA - PH 7.0 (Normal) UA - PROTEIN 300 mg/dL (Normal) UA - SPECIFIC GRAVITY 1.020 (Normal) URINE UROBILINGN JATINDER TIMED 2 mg/dL (Normal) 6-Szx-739921:05 Comp. Metabolic Panel (14) Comments: PATIENT WAS FASTINGPERFORMED BY: LabCoHudson County Meadowview HospitalWsndbi6843 [facility] [id number] A/G Ratio 1.7 (Normal) Range: 1.1-2.5 Albumin, [...] Panel (7) Comments: PATIENT WAS FASTINGPERFORMED BY: [employer] [facility] [id number] Bilirubin, Direct 0.12 mg/dL (Normal) Range: 0.00-0.40 :05 Lipid Panel With LDL/HDL Comments: PATIENT WAS FASTINGPERFORMED BY: [employer] [facility] [id number] Ratio Cholesterol, Total 170 mg/dL (Normal) Range: [...] mg/dL (Normal) Comments: PATIENT WAS FASTINGPERFORMED BY: [employer] [facility] [id number] :05 Range: 2.5-4.5 PTH, Intact 19 pg/mL (Normal) Comments: PATIENT WAS FASTINGPERFORMED BY: [employer]6370 [facility] [id number] :05 Range: 15-65 Vitamin D, 25-Hydroxy 38.9 ng/mL (Normal) Comments: PATIENT WAS FASTINGPERFORMED BY: [facility]6[address] [facility] [id number] :05 Range: 32.0-100.0 Comments: Recent studies consider the lower limit of 32.0 ng/mL to be athreshold for optimal health.Otf HAYES. J Nutr. 2004;135(2):317-22. :40 HgA1C , Office (83266) HgA1C , Office 6.0 % (Normal) Range: 4.6 - 7.1 :40 Blood Glucose , Office (40547) Blood Glucose , Office 109 (Normal) :42 CBC With Differential/Platelet Comments: PATIENT WAS FASTINGPERFORMED BY: [facility]6[address] [facility] [id number] Baso (Absolute) 0.0 {x10E3/uL} (Normal) Range: 0.0-0.2 [...] 11.7-15.0 WBC 4.2 {x10E3/uL} (Normal) Range: 4.0-10.5 16-Kvp-251623:42 Comp. Metabolic Panel (14) Comments: PATIENT WAS FASTINGPERFORMED BY: LabCoHudson County Meadowview HospitalJrkrol9978 [facility] [id number] A/G Ratio 1.6 (Normal) Range: 1.1-2.5 Albumin, [...] Sodium, Serum 140 mmol/L (Normal) Range: 135-145 0-Jro-325191:09 FECAL OCCULT HGB ASSAY, QUAL, 1-3 SIMULTANEOUS DETERMINATIONS (42492) FECAL OCCULT HGB ASSAY, QUAL, 1-3 SIMULTANEOU neg (Normal) :42 Microscopic Examination Comments: PATIENT WAS FASTINGPERFORMED BY: [facility] [id number] Bacteria None seen (Normal) Cast Type Hyaline casts (Normal) Casts Present {/lpf} (Abnormal) Epithelial Cells (non renal) 0-10 {/hpf} (Normal) Range: 0 - 10 Mucus Threads Present (Normal) RBC 0-3 {/hpf} (Normal) Range: 0 - 3 WBC 0-5 {/hpf} (Normal) Range: 0 - 5 :42 URINALYSIS W/O MICRO (25702) Comments: PATIENT WAS FASTINGPERFORMED BY: [facility] [id number] Appearance Clear (Normal) Bilirubin Negative (Normal) Glucose Negative (Normal) Ketones Negative (Normal) Microscopic Examination See below: (Normal) Nitrite, Urine Negative (Normal) Occult Blood Negative (Normal) pH 5.0 (Normal) Range: 5.0-7.5 Protein 1+ (Abnormal) Specific [place] 1.013 (Normal) Range: 1.005-1.030 Urine-Color Yellow (Normal) Urobilinogen,Semi-Qn 0.2 mg/dL (Normal) Range: 0.0-1.9 WBC Esterase 1+ (Abnormal) :42 MICROALBUMIN: CREATININE RATIO Comments: PATIENT WAS FASTINGPERFORMED BY: [facility] [id number] (86736) AND (18558) Creatinine, Urine 76.1 mg/dL (Normal) Range: 15.0-278.0 Microalb/Creat Ratio 292.1 {ug/mg_creat} (Abnormal) Range: 0.0-30.0 Microalbumin, Urine 222.3 ug/mL (Abnormal) Range: 0.0-17.0 :42 CBC WITH MANUAL DIFF (76406) Comments: PATIENT WAS FASTINGClinical Information: ADD DRAW FEE [id number] ADD J 28299 PERFORMED BY: EVE JRKICKZ [facility] [id number] Baso (Absolute) 0.0 {x10E3/uL} (Normal) Range: 0.0-0.2 [...] PANEL, COMPREHENSIVE Comments: PATIENT WAS FASTINGPERFORMED BY: LabCoH[facility] Meadowview HospitalXeizgd0585 [facility] [id number] (58900) A/G Ratio 1.8 (Normal) Range: 1.1-2.5 Albumin, [...] Sodium, Serum 141 mmol/L (Normal) Range: 135-145 3-Gzt-745884:23 HgA1C , Office (71573) HgA1C , Office 6.0 % (Normal) Range: 4.6 - 7.1 0-Arl-687888:23 Blood Glucose , Office (96170) Blood Glucose , Office 103 (Normal) 73-Zeh-995185:38 CBC WITH MANUAL DIFF (65788) Comments: PATIENT WAS FASTINGClinical Information: ADD DRAW FEE [id number] ADD J 76991 PERFORMED BY: EVE [employer] Tbhmzf7522 [facility] [id number] Baso (Absolute) 0.0 {x10E3/uL} (Normal) Range: 0.0-0.2 [...] 11.7-15.0 WBC 4.0 {x10E3/uL} (Normal) Range: 4.0-10.5 89-Prk-642280:38 METABOLIC PANEL, COMPREHENSIVE Comments: PATIENT WAS FASTINGPERFORMED BY: AnimalvitaeCoHudson County Meadowview HospitalWogmtg79[address] [place] [address] [id number] (04524) A/G Ratio 1.8 (Normal) Range: 1.1-2.5 Albumin, [...] Sodium, Serum 142 mmol/L (Normal) Range: 135-145 12-Swf-588752:38 HEPATIC FUNCTION PANEL Comments: PATIENT WAS FASTINGPERFORMED BY: [employer] [facility] Rpdhdw8384 [facility] [id number] (62770) Bilirubin, Direct 0.08 mg/dL (Normal) Range: 0.00-0.40 14-Ope-517366:38 LIPID PANEL (19047) Comments: PATIENT WAS FASTINGPERFORMED BY: [employer] [facility] Becbxw6354 [facility] [id number] Cholesterol, Total 200 mg/dL (Abnormal) Range: 100-199 [...] (Normal) Range: 5-40 :36 HgA1C , Office (93531) HgA1C , Office 6.1 % (Normal) Range: 4.6 - 7.1 :36 Blood Glucose , Office (06104) Blood Glucose , Office 98 (Normal) :33 CBC With Differential/Platelet Comments: PATIENT WAS FASTINGClinical Information: SRC:UR PERFORMED BY: [facility]6[address] [facility] [id number] Baso (Absolute) 0.0 {x10E3/uL} (Normal) Range: 0.0-0.2 [...] 11.7-15.0 WBC 4.8 {x10E3/uL} (Normal) Range: 4.0-10.5 25-Yhf-145042:33 Comp. Metabolic Panel (14) Comments: PATIENT WAS FASTINGPERFORMED BY: LabCoHudson County Meadowview HospitalZfuaoc[address] [id number] A/G Ratio 1.6 (Normal) Range: 1.1-2.5 Albumin, [...] Serum 92 mg/dL (Normal) Range: 65-99 If -[place] 57 mL/min/1.73 Comments: Note: Persistent reduction for [...] With LDL/HDL Comments: PATIENT WAS FASTINGPERFORMED BY: CableOrganizer.comHudson County Meadowview HospitalBctzsx[address] [id number] Ratio Cholesterol, Total 174 mg/dL (Normal) Range: [...] Urine Culture,Comprehensive Comments: PATIENT WAS FASTINGPERFORMED BY: CableOrganizer.comHudson County Meadowview HospitalWefnih[address] [id number] Antimicrobial MIHEAD (Normal) Comments: S = Susceptible; [...] Enterococcus. (Normal) Urine Final report (Normal) Culture,Comprehensive [id number] HgA1C , Office (10734) HgA1C , Office 5.9 % (Normal) Range: [...] mL (Normal) URINE PROTEIN 20.0 mg/dL (Abnormal) [id number] Urine Culture,Comprehensive Comments: Clinical Information: SRC:UR PERFORMED BY: [facility] [id number] Result 1 CNSNSS (Normal) Comments: Coagulase negative Staphylococcus species, not Staphylococcussaprophyticus.600 Colonies/mLSusceptibility or resistance of staphylococci to oxacillin predictssusceptibility or resistance to (a) other be qt-mjfozmuhb-hfhalfdbvbckvrzas such as cloxacillin and dicloxacillin, (b) combinationsof a penicillin and a beta-lactamase inhibitor, and(c) anti- staphylococcal cephalosporins. Routine testing of otherp enicillins, beta-lactam/beta-lactamase inhibitor combinations,cephems, and carbapenems is not advised by the CLSI Standards(E893-J49, 2005). S = Susceptible; I = Intermediate; R = Resistant * P = Positive; N = Negative MICS are expressed in micrograms per mL Antibiotic RSLT#1 RSLT#2 RSLT#3 RSLT#4Ciprofloxacin RGentami kristian SLevofloxacin RNitrofurantoin SOxacillin SPenicillin RRifampin STrimethoprim/Sulfa SVancomycin S Urine Final report Culture,Comprehensi (Normal) ve :53 Metabolic Panel, Basic (08392) Comments: PATIENT NOT FASTINGClinical Information: ADD DRAW FEE [id number] ADD J 54139 PERFORMED BY: [facility] [id number] [facility] [id number] BUN 39 mg/dL (Abnormal) Range: 5-26 BUN/Creatinine Ratio 33 (Abnormal) Range: 8-27 Calcium, Serum 9.8 mg/dL (Normal) Range: 8.5-10.6 Carbon Dioxide, Total 22 mmol/L (Normal) Range: 20-32 Chloride, Serum 103 mmol/L (Normal) Range: 97-108 Creatinine, Serum 1.20 mg/dL (Abnormal) Range: 0.57-1.00 Glom Filt Rate, Est 45 mL/min/1.73 Range: 60-128 (Abnormal) Glucose, Serum 101 mg/dL (Abnormal) Range: 65-99 If -South Korean 55 mL/min/1.73 Range: 60-128 (Abnormal) Comments: Note: Persistent reduction for 3 months or more in an eGFR<60 mL/min/1.73 m2 defines CKD. Patients with eGFR values>/=60 mL/min/1.73 m2 may also have CKD if evidence of persistentproteinuria is present. Additional information may be found [email or web address].org. Potassium, Serum 5.1 mmol/L (Normal) Range: 3.5-5.2 Sodium, Serum 139 mmol/L (Normal) Range: 135-145 :09 HgA1C , Office (31091) HgA1C , Office 6.1 % (Normal) Range: 4.6 - 7.1 :09 Blood Glucose , Office (35515) Blood Glucose , Office 163 (Normal) :37 SPINE,LUMBAR (ROUTINE) Radiology Report See Note (Normal) Comments: Exam Number: [id number] MRI LUMBAR SPINE CLINICAL STATEMENTLow back pain [...] onboth sides. Reported By: MODESTA COPE M.D. 75-Elv-645293:00 [facility] Rad[facility] Report See Note (Normal) Comments: Exam Number: [id number] MAMMOGRAM, BILATERAL SCREENING DIGITAL AND CAD HISTORYRoutine screening. Full field digital images were obtained in mediolateral oblique andcraniocaudal projections. CAD images w ere reviewed. The current study is [facility]. A small metal marker is placed [...] mammograms werealso examined with computer-aided detection software ([place], [employer] Reported By: DONNA OJEDA M.D. :59 DEXA BONE DENSITY STUDY (HP) Radiology Report See Note (Normal) Comments: Exam Number: [id number] BONE DENSITOMETRY HISTORYPost menopausal. TECHNIQUE Bone densitometry [...] Report See Note (Normal) Comments: Exam Number: [id number] FIVE VIEW LUMBAR SPINE AP, lateral, both [...] By: MAIRA GARZA M.D. :19 Microalb/Creat Ratio, [facility] Comments: PATIENT NOT FASTINGPERFORMED BY: [facility] [id number] [id number] Creatinine, Urine 46.8 mg/dL (Normal) Microalb/Creat Ratio 712.8 {ug/mg_creat} (Abnormal) Range: 0.0-30.0 Microalbum.,U,Random 333.6 ug/mL (Abnormal) Range: 0.0-17.0 :13 Creatinine Clearance Comments: PATIENT NOT FASTINGClinical Information: HT-5'4'' WT-184 PERFORMED BY: [facility] [email or web address] [id number] [facility] [id number] Creatinine Clearance 40 mL/min (Abnormal) Range: 88-128 Comments: The above range is based on 1.73 square meter average body surfacearea. Creatinine, Serum 1.30 mg/dL (Normal) Range: 0.50-1.50 Creatinine, Ur 24hr 754.8 {mg/24_hr} Range: 800.0-1800.0 (Abnormal) Creatinine, Urine 44.4 mg/dL (Normal) Glom Filt Rate, Est 41 mL/min (Abnormal) Range: 60-128 If -South Korean 50 mL/min (Abnormal) Range: 60-128 Comments: Note: Persistent reduction for 3 months or more in an eGFR<60 mL/min/1.73 m2 defines CKD. Patients with eGFR values>/=60 mL/min/1.73 m2 may also have CKD if evidence of persistentproteinuria is present. .Additional information may be found at www.[email or web address]. :13 Protein Total, Qn, 24-Hr Comments: PATIENT NOT FASTINGPERFORMED BY: [facility] [email or web address] [id number] [facility] [id number] Urine Protein,Total,Urine 49.0 mg/dL (Abnormal) Range: 0.0-15.0 Prt, 24hr calculated 833.0 {mg/24_hr} (Abnormal) Range: 30.0-150.0 20-Irj-558585:00 CBCD,SMEAR DIFF CELLS COUNTED 100 (Normal) EOS [...] T PROT 6.6 g/dL (Normal) Range: 6.4-8.2 60-Irw-934217:00 D BILI 0.06 mg/dL (Normal) Range: 0.00-0.30 14-Bgl-374126:00 LIPID CHOL 175 mg/dL (Normal) Comments: <200 [...] mg/dL VLDL 12 mg/dL (Normal) Range: 5-40 64-Ztk-927454:00 TSH 0.84 {uIU/mL} (Normal) Range: 0.34-4.82 Plan [...] of skin Planned Observations Vitamin D Hydroxy (93829)Indication: Vitamin D deficiency On: :25 Request URINALYSIS, W/ MICRO (65534)Indication: Chronic kidney disease, stage 3 On: :25 Request LIPID PANEL (88935)Indication: Mixed hyperlipidemia On: : Request CBC W/AUTO DIFF WBC (57022)Indication: Chronic kidney disease, stage 3 On: :25 Request METABOLIC PANEL, COMPREHENSIVE (92004)Indication: Chronic kidney disease, stage 3 On: :25 Request HGB A1C (58396)Indication: Diabetes mellitus type II, controlled On: 45-Jln-225137:24 Request Parathyroid Hormone-related Peptide (PTH-rP) (15737)Indication: Vitamin D deficiency On: 3-Aor-133519:43 Request Comments: send results to Dr. Santana fax: [phone] VITAMIN D, 1, 25-DIHYDROXY (29537)Indication: Vitamin D deficiency On: 5-Amo-706412:42 Request Comments: send results to Dr. Santana fax: [phone] Clostridium difficile Toxin A+B, EIA (87352)Indication: Chronic diarrhea On: 0-Lsh-865027:36 Request Vitamin D Hydroxy (40855)Indication: Osteopenia On: 2-Big-822163:20 Request CBC W/AUTO DIFF WBC (81932)Indication: Hypertension, benign On: 9-Pue-509230:16 Request CALCIFEDIOL (86682)Indication: Chronic kidney disease, stage 3 On: :04 Request Renal function Panel (85943)Indication: Chronic kidney disease, stage 3 On: :04 Request Magnesium (77800)Indication: Chronic kidney disease, stage 3 On: :04 Request MICROALBUMIN: CREATININE RATIO (03971) AND (27777)Indication: Chronic kidney disease, stage 3 On: :04 Request Parathyroid Hormone-related Peptide (PTH-rP) (74225)Indication: Chronic kidney disease, stage 3 On: :04 Request T4, FREE (THYROXINE) (82949)Indication: Cold feeling On: :31 Request TSH (40829)Indication: Cold feeling On: :31 Request PARATHORMONE (50880)Indication: Chronic kidney disease, stage 3 On: :18 Request Comments: copy to Dr. Santana [phone] CALCIFIDIOL (98774) VIT D 25Indication: Chronic kidney disease, stage 3 On: :16 Request Comments: copy to Dr. Santana [phone] MAGNESIUM (54074)Indication: Chronic kidney disease, stage 3 On: :15 Request Comments: copy to Dr. Santana [phone] PROTEIN/CREAT RATIO, URINE (24761)Indication: Chronic kidney disease, stage 3 On: :15 Request Comments: copy to Dr. Santana [phone] LIPID PANEL (37221)Indication: Mixed hyperlipidemia On: :21 Request CBC with auto diff (23272)Indication: Diabetes mellitus type II, controlled On: 70-Oly-743101:20 Request METABOLIC PANEL, COMPREHENSIVE (23195)Indication: Diabetes mellitus type II, controlled On: 60-Ftu-579614:20 Request HGB A1C (11765)Indication: Diabetes mellitus type II, controlled On: 19-Brs-104452:10 Request Vitamin D Hydroxy (53980)Indication: Osteopenia On: :08 Request TSH (THYROID STIMULATING HORMONE) (63088)Indication: Depression On: 13-Dtp-791277:06 Request LIPID PANEL (27462)Indication: Other and unspecified hyperlipidemia On: :06 Request CBC with auto diff (34286)Indication: Diabetes mellitus type II, controlled On: 46-Qss-982638:06 Request METABOLIC PANEL, COMPREHENSIVE (97639)Indication: Diabetes mellitus type II, controlled On: 77-Ess-407688:06 Request CREATININE CLEARANCE (72031)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 On: 0-Geq-304621:38 Request Total Protein,24 Hour Urine (05311)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 On: 9-Clx-056895:38 Request CBC W/AUTO DIFF WBC (04078)Indication: Diabetes mellitus type II, controlled On: 28-Vkt-857332:11 Request HgA1C , Office (25758)Indication: Diabetes mellitus type II, controlled On: 48-Odl-775279:23 Request CULTURE, SPUTUM (15130)Indication: Cough On: 45-Qld-039559:47 Request HEPATIC FUNCTION PANEL (07992)Indication: Elevated LFTs On: 81-Qgw-20394:24 Request CREATININE CLEARANCE (01307)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 On: :33 Request 24 hour urine for Protein (44933)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 On: :33 Request CBC WITH MANUAL DIFF (89986)Indication: Diabetes mellitus type II, controlled On: :29 Request METABOLIC PANEL, COMPREHENSIVE (48577)Indication: Diabetes mellitus type II, controlled On: 09-Rdn-756399:29 Request LIPID PANEL (45916)Indication: Mixed hyperlipidemia On: :29 Request CREATININE CLEARANCE (03154)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 On: 5-Rbq-047790:45 Request 24 hour urine for Protein (83071)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 On: 6-Lff-641301:45 Request CREATININE CLEARANCE (42129)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 On: 67-Wpo-021361:57 Request 24 hour urine for Protein (98435)Indication: 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 On: 77-Cic-645233:57 Request METABOLIC PANEL, COMPREHENSIVE (20710)Indication: Hypertension, benign On: :32 Request LIPID PANEL (37079)Indication: Mixed hyperlipidemia On: :32 Request C-REACTIVE PROTEIN (86119)Indication: Fatigue On: :24 Request SED RATE ERYTHROCYTE (24828)Indication: Headache On: :24 Request VITAMIN B-12 (CYANOCOBALAMIN) (06540)Indication: Fatigue On: :24 Request LIPID PANEL (78440)Indication: Mixed hyperlipidemia On: :41 Request CBC WITH MANUAL DIFF (18228)Indication: Hypertension, benign On: :41 Request METABOLIC PANEL, COMPREHENSIVE (33728)Indication: Hypertension, benign On: :41 Request CREATININE CLEARANCE (74214)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 On: :34 Request 24 hour urine for Protein (14989)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 On: :34 Request LIPID PANEL (64661)Indication: Mixed hyperlipidemia On: 3-Qte-095020:22 Request HEPATIC FUNCTION PANEL (35906)Indication: Mixed hyperlipidemia On: :22 Request Vitamin D Hydroxy (28436)Indication: Hypercalcemia On: 9-Cwg-024324:22 Request PHOSPHORUS (51802)Indication: Hypercalcemia On: 4-Kpb-414513:22 Request PARATHORMONE (21950)Indication: Hypercalcemia On: :22 Request METABOLIC PANEL, COMPREHENSIVE (82905)Indication: Hypercalcemia On: 5-Yes-410979:22 Request CBC WITH MANUAL DIFF (17002)Indication: fsgs On: :58 Request LIPID PANEL (41596)Indication: Mixed hyperlipidemia On: 0-Nyc-654314:58 Request METABOLIC PANEL, COMPREHENSIVE (78684)Indication: Hypertension, benign On: 8-Wlw-513684:58 Request Blood Glucose , Office (92444)Indication: Diabetes mellitus type II, controlled On: 0-Hps-745882:10 Request TSH (43156)Indication: Diabetes mellitus type II, controlled On: 86-Uob-181295:51 Request METABOLIC PANEL, COMPREHENSIVE (85328)Indication: Diabetes mellitus type II, controlled On: 22-Lgo-111691:51 Request CBC WITH MANUAL DIFF (46243)Indication: Diabetes mellitus type II, controlled On: 21-Doo-294557:51 Request MICROALBUMIN: CREATININE RATIO (45144) AND (82187)Indication: Diabetes mellitus type II, controlled On: 20-Fsn-683190:51 Request HEPATIC FUNCTION PANEL (04001)Indication: Other and unspecified hyperlipidemia On: :51 Request LIPID PANEL (51636)Indication: Other and unspecified hyperlipidemia On: :51 Request HgA1C , Office (20119)Indication: Diabetes mellitus type II, controlled On: :37 Request Blood Glucose , Office (71057)Indication: Diabetes mellitus type II, controlled On: :37 Request Planned Encounters Medical; [facility] 3 Month FU - On: 22-Mar-2018 11:00 [facility] Fast DO, Chaparrita A Fast DO, Chaparrita A Planned Procedures DRAIN/INJECT MAJOR JOINT OR BURSA On: 07-Feb-2018 Intent ()By: Keri Singh MD Comments: lot no [id number] exp date 2017-12-26 DRAIN/INJECT MAJOR JOINT OR BURSA On: 31-Jan-2018 Intent ()By: Keri Singh MD Comments: Lot#[id number]:4-49-03Bmaro:intra articular Site given:left knee Given By: Dr. Singh ABN signed DRAIN/INJECT MAJOR JOINT OR BURSA On: 24-Jan-2018 Intent ()By: Keri Singh MD Comments: Lot#[id number]: 0-47-67Rtpav:intra artciular Site given:left knee Given By: Dr. Singh ABN signed Euflexxa Echo CompleteBy: Fast DO, Chaparrita A On: 16-Dec-2017 Intent Fast DO, Chaparrita A Flu Vaccine (Quadrivalent) 63744Lp: On: 16-Dec-2017 Intent Fast DO, Chaparrita A Fast DO, Chaparrita A Comments: Lot: [id number]: 10/01/18Site: L dltd, IMDose prefilled syringegiven by: Jamie reviewed and ABN signed Kenalog Injection, 10 mgm On: 03-Oct-2017 Intent (J3301)By: Keri Singh MD Comments: lot: [id number]: 11/20site/route: L knee Cartoid DopplerBy: Fast DO, Chaparrita A On: 12-Sep-2017 Intent Fast DO, Chaparrita A Comments: november DIGITAL TOMOSYNTHESIS OF On: 12-Sep-2017 Intent BREAST (39798)By: Ambrocio WOLFF Chaparrita A Comments: due november 02 Ambrocio WOLFF Chaparrita A Kenalog Injection, 10 mgm On: 06-Jun-2017 Intent (J3301)By: Keri Singh MD Comments: bupivacacine 0.5% [id number] exp 09-20 kenalog 40 mg injected in. [id number] 07-21 MRI OF BRAIN WITH AND WITHOUT On: 06-Jun-2017 Intent CONTRAST (06649)By: Case Albrecht DOa A Fast DO, Chaparrita A ELECTROCARDIOGRAM, COMPLETE (ECG) On: 06-Jun-2017 Intent (81598)By: Ambrocio WOLFF Chaparrita A Fast Comments: ekg [...] 10-May-2017 Intent 1000 CC (Special Coverage Comments: lot:[id number]:[id number]:IV left anticub dose:1000ml given by:eliazar Araya LPN Instructions Apply. See MCM: 2048) (J7030)By: Case Albrecht DOa A Ambrocio DO, Chaparrita A Radiology - Chest- PA and LatBy: On: 05-May-2017 Intent Keri Singh MD Aerosol Treatment (46736)By: On: 05-May-2017 Intent Keri Singh MD Radiology - ChestBy: Francisco MANN, On: 05-May-2017 Intent Keri Alonzo Comments: call wet read DRAIN/INJECT MAJOR JOINT OR BURSA On: 28-Feb-2017 Intent (53601)By: Keri Singh MD Comments: 1 cc Kenelog #[id number] cc Marcaine #[id number] Kenalog Injection, 10 mgm On: 28-Feb-2017 Intent (J3301)By: Keri Singh MD ELECTROCARDIOGRAM, COMPLETE (ECG) On: 10-Jan-2017 Intent (42076)By: Chaparrita Albrecht DO Comments: ekg showed normal sinus rhythym, normal axis, no acute st/t wave changes Chaparrita WOLFF Flu Vaccine (Quadrivalent) 72477Va: On: 27-Dec-2016 Intent SHONDA Andrade DRAIN/INJECT MAJOR JOINT OR BURSA On: 20-Aug-2016 Intent ()By: Keri Singh MD DRAIN/INJECT MAJOR JOINT OR BURSA On: 13-Aug-2016 Intent ()By: SHONDA Andrade Comments: lot: [id number]:[id number]:intra articular dose:2ml given by:Dr. Francisco HUMPHREY signedER, [employer] injection #3 DOPPLER ULTRASOUND OF RIGHT CAROTID On: 10-Aug-2016 Intent ARTERY (36683)By: Ambrocio WOLFF Chaparrita A Comments: end october Ambrocio DO Chaparrita A DEXA SCAN AXIAL SKELETON (88828)By: On: 10-Aug-2016 Intent Case Albrecht DOa A Fast DO, Chaparrita A Comments: end of october SCREENING DIGITAL TOMOSYNTHESIS OF On: 10-Aug-2016 Intent BREAST (91126)By: Case Albrecht DOa A Comments: end of october Fast , Chaparrita A DRAIN/INJECT MAJOR JOINT OR BURSA On: 06-Aug-2016 Intent ()By: Keri Singh MD DRAIN/INJECT INTERMED JOINT/BURSA On: 06-Aug-2016 Intent ()By: SHONDA Andrade Comments: lot:[id number]:5-27-0699lvt:left knee dose:2mlgiven by:Dr. Francisco HUMPHREY signedER, [employer] injection number 2 Venous Doppler - LeftBy: Ambrocio WOLFF, On: 03-Aug-2016 Intent Chaparrita A Ambrocio DO, Chaparrita A Comments: This is set up for August 05 at 11am- spoke with Rina in cv. DRAIN/INJECT INTERMED JOINT/BURSA On: 30-Jul-2016 Intent ()By: Keri Singh MD Comments: lot:[id number]:1-12-8307ium:intra articular left knee dose: 2ml given by: Dr. Francisco HUMPHREY signedER, [employer] injection #1 Radiology - Knee - LeftBy: Fast DO, On: 26-May-2016 Intent Chaparrita A Fast DO, Chaparrita A Flu Vaccine (Quadrivalent) 45485Hz: On: 27-Jan-2016 Intent Fast DO, Chaparrita A Fast DO, Chaparrita A Comments: Lot #:[id number] date:10/01/16mount given:0.5mlRoute: IMSite given: left deltoidGiven by: CARMELINA Hook ADMINISTRATION OF INFLUENZA VIRUS On: 27-Jan-2016 Intent VACCINE (G0008)By: Fast DO, Chaparrita A Fast DO, Chaparrita A DOPPLER ULTRASOUND OF RIGHT CAROTID On: 22-Oct-2015 Intent ARTERY (92353)By: Fast DO, Chaparrita A Fast DO, Chaparrita A MAMMOGRAM, SCREENING, BOTH BREAST On: 22-Oct-2015 Intent (38261)By: Fast DO, Chaparrita A Fast DO, Chaparrita A Ultrasound - RenalBy: Fast DO, On: 14-Jul-2015 Intent Chaparrita A Fast DO, Chaparrita A Radiology - Knee - Left - Weight On: 11-Mar-2015 Intent BearingBy: Fast DO, Chaparrita A Fast DO, Chaparrita A Radiology - Knee - Right - Weight On: 11-Mar-2015 Intent BearingBy: Fast DO, Chaparrita A Fast DO, Chaparrita A Flu Vaccine (Quadrivalent) 78505Uh: On: 11-Feb-2015 Intent Fast DO, Chaparrita A Fast DO, Chaparrita A EKG (85239)By: Fast DO, Chaparrita A On: 05-Nov-2014 Intent Fast DO, Chaparrita A Comments: ekg showed normal sinus rhythym, normal axis, no acute st/t wave changes left axis DRAIN/INJECT SMALL JOINT OR BURSA On: 07-Oct-2014 Intent ()By: Keri Singh MD MAMMOGRAM, SCREENING, BOTH BREAST On: 02-Aug-2014 Intent (58474)By: Fast DO, Chaparrita A Fast Comments: meera DO, Chaparrita A Cartoid DopplerBy: Fast DO, Chaparrita A On: 02-Aug-2014 Intent Fast DO, Chaparrita A DEXA SCAN AXIAL SKELETON (98985)By: On: 09-Apr-2014 Intent Fast DO, Chaparrita A Fast DO, Chaparrita A Prevnar 13 (53540)By: Ambrocio DO, On: 30-Jan-2014 Intent Chaparrita A Fast DO, Chaparrita A Comments: Lot:[id number]:05/20Dose:0.5Route:imSite:l armGiven By:Jarred signed FLU VAC, SPLIT, >3 YEARS, INTRAMUSC On: 16-Jan-2014 Intent (88507)By: Case Albrecht DOa A Ambrocio Comments: Lot #:[id number] date:12/2015Amount given:0.5mlRoute: IMSite given: left deltoidGiven by: CARMELINA Hook DO, Chaparrita A ADMINISTRATION OF INFLUENZA VIRUS On: 16-Jan-2014 Intent VACCINE (G0008)By: Ambrocio DO, Chaparrita A Fast DO, Chaparrita A EKG (41802)By: Fast DO, Chaparrita A On: 17-Oct-2013 Intent Fast DO, Chaparrita A Comments: ekg showed normal sinus rhythym, left axis, no acute st/t wave changes Radiology - Chest- PA and LatBy: On: 17-Sep-2013 Intent Fast DO, Chaparrita A Fast DO, Chaparrita A Aerosol Treatment (13027)By: Ambrocio On: 17-Sep-2013 Intent DO, Chaparrita A Fast DO, Chaparrita A MRI - BrainBy: Fast DO, Chaparrita A On: 22-Jul-2013 Intent Fast DO, Chaparrita A Cartoid DopplerBy: Fast DO, Chaparrita A On: 20-Jul-2013 Intent Fast DO, Chaparrita A MAMMOGRAM, SCREENING, BOTH BREASTS On: 20-Jul-2013 Intent (84591)By: Fast DO, Chaparrita A Fast DO, Chaparrita A Eprescribed prescriptions On: 20-Jul-2013 Intent (G8553)By: Fast DO, Chaparrita A Fast DO, Chaparrita A Eprescribed prescriptions On: 02-Feb-2013 Intent (G8553)By: Марина Concepcion FLU VAC, SPLIT, >3 YEARS, INTRAMUSC On: 03-Jan-2013 Intent (73002)By: Марина Concepcion Comments: Lot #:[id number] date:mount given:0.5mlRoute: IMSite given: L dltdVIS and ABN signedGiven by: CARMELINA Hook ADMINISTRATION OF INFLUENZA VIRUS On: 03-Jan-2013 Intent VACCINE (G0008)By: Марина Concepcion CT - Abdomen & Pelvis (IV Contrast On: 17-Oct-2012 Intent Needed)By: Chaparrita Albrecht DO A Ambrocio Comments: patient will be calling to set up DO, Chaparrita A Eprescribed prescriptions On: 10-Oct-2012 Intent (G8553)By: Марина Concepcion Ear Irrigation (96574)By: [place], On: 13-Jun-2012 Intent Ivy Comments: Ear Irrigation performed on: right earAmount/color removed cerumen: light brown, small amount removedOUtcome:Pt toleratedUsed wax curettes Wax Currettes (88760)By: Rome, On: 13-Jun-2012 Intent Ivy PNEUM VAC ADLT/IMUMNOSPR, SBC/INTRM On: 13-Jun-2012 Intent (93589)By: Chaparrita Albrecht DO Comments: Lot:[id number]:09/09/13Dose:0.5mLRoute:IMSite:L armGiven By:BHUMI signed DO, Chaparrita A EKG (52461)By: Case Albrecht DOa A On: 13-Jun-2012 Intent Ambrocio DO Chaparrita A Comments: ekg showed normal sinus rhythym, normal axis, no acute st/t wave changes MRI - BrainBy: Ambrocio WOLFF, Chaparrita A On: 13-Jun-2012 Intent Ambrocio WOLFF Chaparrita A Comments: july ADMINISTRATION OF PNEUMOCOCCAL On: 13-Jun-2012 Intent VACCINE (G0009)By: Ambrocio WOLFF Chaparrita A Fast DO, Chaparrita A Eprescribed prescriptions On: 13-Jun-2012 Intent (G8553)By: Марниа Concepcion MAMMOGRAM, SCREENING, BOTH BREASTS On: 28-Dec-2011 Intent (01416)By: Ambrocio WOLFF Chaparrita A Ambrocio DO, Chaparrita A DXA, BONE DENSITY, AXIAL SKELETON On: 28-Dec-2011 Intent (96192)By: Ambrocio WOLFF Chaparrita A Fast DO, Chaparrita [...] SPLIT, >3 YEARS, INTRAMUSC On: 28-Dec-2011 Intent (86470)By: Марина Concepcion Comments: Lot #:[id number] date:mount given:0.5mlRoute: IMSite given: left deltoidGiven by: CARMELINA Hook ADMINISTRATION OF INFLUENZA VIRUS On: 28-Dec-2011 Intent VACCINE (G0008)By: Марина Concepcion Aerosol Treatment (96142)By: Ciesa On: 30-Nov-[address] - Abdomen & PelvisBy: Fast DO, On: 21-Sep-2011 Intent Chaparrita A Fast DO, Chaparrita A Comments: with special cuts through the kidney- october EKG (70724)By: Марина Concepcion On: 15-Jun-2011 Intent Comments: ekg [...] Comments: Call results to Dr. Albrecht @ [phone] as soon as resulted please. DO, Chaparrita A Eprescribed prescriptions On: 11-Jan-2011 Intent (G8553)By: Fast DO, Chaparrita A Fast DO, Chaparrita A MAMMOGRAM, SCREENING, BOTH BREASTS On: 11-Jan-2011 Intent (80918)By: Ambrocio DO, Chaparrita A Fast DO, Chaparrita A CT - Sinuses CompleteBy: Fast DO, On: 11-Jan-2011 Intent Chaparrita A Fast DO, Chaparrita A Cartoid DopplerBy: Fast DO, Chaparrita A On: 11-Jan-2011 Intent Fast DO, Chaparrita A ADMINISTRATION OF INFLUENZA VIRUS On: 11-Jan-2011 Intent VACCINE (G0008)By: Марина Concepcion FLU VAC, SPLIT, >3 YEARS, INTRAMUSC On: 11-Jan-2011 Intent (05917)By: Марина Concepcion Eprescribed prescriptions On: 12-Oct-2010 Intent (G8553)By: Ambrocio WOLFF, Chaparrita A Fast DO, Chaparrita A Renal DopplerBy: Fast DO, Chaparrita A On: 12-Oct-2010 Intent Fast DO, Chaparrita A Cartoid DopplerBy: Fast DO, Chaparrita A On: 12-Oct-2010 Intent Fast DO, Chaparrita A Comments: sept TDAP VACCINE >7 IM (04689)By: On: 13-May-2010 Intent Helena Tineo LPN Comments: Lot #[id number]-1/25/13Site-left deltoidgiven by:[facility] EKG (43753)By: Марина Concepcion On: 13-May-2010 Intent Comments: ekg showed normal sinus rhythym, normal axis, no acute st/t wave changes Aerosol Treatment (44805)By: Charlene On: 22-Dec-2009 Intent Johanna SANZ Cartoid DopplerBy: Fast DO, Chaparrita A On: 01-Dec-2009 Intent Fast DO, Chaparrita A MAMMOGRAM, SCREENING, BOTH BREASTS On: 01-Dec-2009 Intent (26120)By: Fast DO, Chaparrita A Fast DO, Chaparrita A DXA, BONE DENSITY, AXIAL SKELETON On: 01-Dec-2009 Intent (06114)By: Fast DO, Chaparrita A Fast DO, Chaparrita A Ultrasound - SpleenBy: Fast DO, On: 17-Jun-2009 Intent Chaparrita A Fast DO, Chaparrita A EKG (11023)By: Марина Concepcion On: 10-Mar-2009 Intent Comments: ekg showed normal sinus rhythym, normal axis, no acute st/t wave changes FLU VAC, SPLIT, >3 YEARS, INTRAMUSC On: 09-Jan-2009 Intent ([id number])By: Stacy Jorge Comments: Lot #[id number]-left deltoidDose0.5mlgiven by Marycarmen Jorge LPN ADMINISTRATION OF INFLUENZA VIRUS On: 09-Jan-2009 Intent VACCINE ([id number])By: Stacy Jorge MAMMOGRAM, SCREENING, BOTH BREASTS On: 04-Dec-2008 Intent ([id number])By: Fast DO, Chaparrita A Fast DO, Chaparrita A MAMMOGRAM, SCREENING, BOTH BREASTS On: 03-Sep-2008 Intent ([id number])By: Fast DO, Chaparrita A Fast DO, Chaparrita A FLU VAC, SPLIT, >3 YEARS, INTRAMUSC On: 16-Jan-2008 Intent ([id number])By: Janet Scherer RN Comments: Lot #: [id number] date: 09/10Amount given: 0.5 mlRoute: IMSite given: Left deltoidGiven by: Olivia Bell LPN ADMINISTRATION OF INFLUENZA VIRUS On: 16-Jan-2008 Intent VACCINE ([id number])By: Janet Scherer RN EKG ([id number])By: Fast DO, Chaparrita A On: 29-Aug-2007 Intent Fast DO, Chaparrita A Comments: done km ADMINISTRATION OF PNEUMOCOCCAL On: 29-Aug-2007 Intent VACCINE ([id number])By: Fast DO, Chaparrita A Fast DO, Chaparrita A PNEUM VAC ADLT/IMUMNOSPR, SBC/INTRM On: 29-Aug-2007 Intent ([id number])By: Fast DO, Chaparrita A Fast Comments: 0.5cc given im lt arm [id number] exp 02-13-08 DO, Chaparrita A DXA, BONE DENSITY, AXIAL SKELETON On: 29-Aug-2007 Intent ([id number])By: Fast DO, Chaparrita A Fast DO, Chaparrita A MAMMOGRAM, SCREENING, BOTH BREASTS On: 29-Aug-2007 Intent ([id number])By: Fast DO, Chaparrita A Fast DO, Chaparrita [...] new people and be involved in the druze 0 bps are good and sugar looking [...] medical issues: she has been working with [employer] and trying to work on that- she got rid of respiratory infection but was sick for weeks and was on pred so her sugar up and chol up a bit- trying to add protein shakes drink more water- she is starting back at [facility]- diarrhea resolved- we did talk about [...] that she had episode where went to [facility] and she couldnt remember where she was- and happened one other time where she didnt recognize the roads- sister had alzheimer s- weight down because was sick- but coming back up- she hasnt done counseling with hospice has been thru before- she lonely- not necessarily unhappy- she doing self help she is singing with druze- -rodriguez gars are all in low 100s-130- going to [employer] for a month next monthEncounter Diagnosis: Nonsmoker, [...] Eddie and bp is good she joined [employer] sugar up bit doi ng ice cream-the bone density reviewed little thinner she not exercising routienly until just recent at [facility] and sees kidney doc next week and [...] maribel jesusrisheri in hospice - going to [facility] end [...] Patient sleeps 8 hours per night. [facility]. The medical issues the [...] visual acuity (yearly). Note for Physical exam: [facility] Wellness Physical- Talk about trying Myrbetriq., [...] Meningioma (Renamed from ABNRM RESULT, FUNCTION STUDY, BRAIN/CREMATORIUM 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)) [facility] [...] Meningioma (Renamed from ABNRM RESULT, FUNCTION STUDY, BRAIN/CREMATORIUM 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)), Diabetes, Type II, controlled [...] Meningioma (Renamed from ABNRM RESULT, FUNCTION STUDY, BRAIN/CREMATORIUM 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)), Colon Polyp [facility] [...] Meningioma (Renamed from ABNRM RESULT, FUNCTION STUDY, BRAIN/CREMATORIUM 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)), OCCLUSION AND STENOSIS OF [...] Meningioma (Renamed from ABNRM RESULT, FUNCTION STUDY, BRAIN/CREMATORIUM 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)), Chronic glomerulonephritis with lesion [...] Meningioma (Renamed from ABNRM RESULT, FUNCTION STUDY, BRAIN/CREMATORIUM 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)), Other and unspecified hyperlipidemia [...] Meningioma (Renamed from ABNRM RESULT, FUNCTION STUDY, BRAIN/CREMATORIUM 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)) [facility] [...] Meningioma (Renamed from ABNRM RESULT, FUNCTION STUDY, BRAIN/CREMATORIUM 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)), Gerd (530.81), Hyperlipidemia, Unspecified [...] Meningioma (Renamed from ABNRM RESULT, FUNCTION STUDY, BRAIN/CREMATORIUM 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)), Hypertension,benign(401.1), OCCLUSION AND STENOSIS [...] Meningioma (Renamed from ABNRM RESULT, FUNCTION STUDY, BRAIN/CREMATORIUM 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)), Diabetes, Type II, controlled [...] Meningioma (Renamed from ABNRM RESULT, FUNCTION STUDY, BRAIN/CREMATORIUM 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)), Hypertension,benign(401.1), Osteopenia (733.90), Depression [...] weight down 23 pounds- and trying joined [employer]- she feels well - she increased celexa [...] Meningioma (Renamed from ABNRM RESULT, FUNCTION STUDY, BRAIN/CREMATORIUM 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)), Chronic glomerulonephritis with lesion [...] Meningioma (Renamed from ABNRM RESULT, FUNCTION STUDY, BRAIN/CREMATORIUM 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)) End: 26-Jan-2011 16:53 [facility] Office Visit On: 19-Jan-2011 14:30 Encounter Diagnosis: brain tumor End: 21-Sep-2011 8:09 [facility] Phone Encounter On: 19-Jan-2011 13:41 Encounter Diagnosis: ABNRM RESULT, FUNCTION STUDY, BRAIN/CREMATORIUM 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) End: 19-Jan-2011 13:44 [facility] [...] (V04.81), Degenerative Disc Disease - Lumbar (722.52), [facility] [place] [facility] Office Visit On: 06-Dec-2007 [...] Disease - Lumbar (722.52), Osteopenia (733.90), Hypertension,benign(401.1), [facility] [place] [facility] Historical Summary On: 30-Aug-2007 [...] WITH RADICULOPATHY (724.4) [facility] Payers MedicareAARP/[facility] CENTERGAGAN ALBERT; a guarantor
--- OUTSIDE RECORDS SUMMARY | 2018-06-25 22:28 | XMS RPT_ITS | Continuity of Care Document ---
:1940 Author Organization [facility] Address [address] [place] [address] Phone Care Team Providers Name Role Phone [...] Knee pain, unspecified laterality (719.46) Comments: Valorie:lot: [id number]: 09/20site/route: L knee Status: Active Leg pain, [...] Quantity: 1 {Inhaler} Refills: 3 Ordered:28-Sep-2013 Марина oCncepcion Start : 28-Sep-2013 Active TraZODone HCl 150 [...] spray daily for 0 days Quantity: 1 {Weesatche} Refills: 0 Ordered:04-May-2016 SHONDA Andrade Start : [...] and dispense 8 ounes TOTAL mixed solutionCal [id number] if questions SPECTAZOLE, 1% (External Cream) 1 [...] for 0 days Refills: 0 Ordered:06-Dec-2007 Марина Concepcino End : 06-Dec-2007 Discontinued ZOLOFT, 50MG (Oral [...] End : 11-Feb-2015 Discontinued Comments:th[age], called to [facility] 08-30-14 [facility] Allergies and Adverse Reactions Name Dates [...] Meningioma (Renamed from ABNRM RESULT, FUNCTION STUDY, BRAIN/REHABILITATION DIRECTOR 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 2016 right Cholecystectomy Completed lumbar lkwvqj==8433 Completed Tonsillectomy Completed Date Value Details 19-Dec-2017 Echocardiogram Complete Result: Comments: See Note; NOTES: [facility] Cardiovascular Services [address] [place] [address] Echo Complete 12/19/17 0800 MR#: [id number] Acct: [id number] Name: CLARENCE ALBERT ep #: [id number] : 1940 77 From: Chuckie Cormier MD Attending Dr: Chaparrita Albrecht DO Status: REG CLI Ordering Dr: Chaparrita Albrecht DO Date: 12/19/17 Location: [facility] Sex: F C Admitted: Reason For [...] Dictated: 12/19/17 0800 Date Transcribed: 12/19/17 1022 Product Introduction Manager: Signed 07-Dec-2017 Carotid Duplex Ultrasound Result: Comments: See Note; NOTES: [facility] Cardiovascular Services [address] [place] [address] Carotid Duplex Ultrasound 12/06/17 0901 MR#: [id number] Acct: [id number] Name: CLARENCE WHITTINGTON Rep #: [id number] : 1940 77 From: Anurag Loya MD [...] the left vertebral artery. Procedure Carotid Duplex 68324. Exam performed in department. Interpretation Summary Mild (<50%) stenosis right extracranial internal carotid. Mild (<50%) stenosis left extracranial internal carotid. Flow within the vertebral arteries is antegrade bilaterally. __ __ Ordering Physician: Chaparrita Albrecht Performed By: Margot Benton RVT and Student 12/07/17 0809 Date Anurag Loya MD CC: Chaparrita Albrecht DO Date Dictated: 12/06/17900 Date Transcribed: 12/07/17808 Product Introduction Manager: Signed 06-Dec-2017 SCREENING MAMM (CAD), BILAT Result: Comments: See Note; NOTES: [facility] Imaging Services [address] [place] [address] SCREENING MAMM (CAD), BILAT MR#: [id number] Acct: [id number] Name: CLARENCE ALBERT Rep #: [id number] : 1940 F 77 From: Misael Hebert MD PCP: Chaparrita Albrecht DO Status: REG CLI Study: SCREENING MAMM (CAD), BILAT Date of Exam: 12/06/17 Exam# [id number] Ordering Dr: Chaparrita Albrecht DO MAMM OGRAPHY [...] delay biopsy of a clinically suspicious abnormality. [id number] Electronically Signed: Misael Hebert MD at 15:31 EDT Tel [phone], Se rvice support , CC: Chaparrita Albrecht DO Product Introduction Manager: Signed 10-Jun-2017 Brain W/WO Contrast Result: Comments: See Note; NOTES: [facility] Imaging Services [address] [place] [address] Brain W/WO Contrast MR#: [id number] Acct: [id number] Name: CLARENCE ALBERT Rep #: [id number] : 1940 F 77 From: Laya Montilla MD PCP: Chaparrita Albrecht DO Status: REG CLI Study: Brain W/WO Contrast Date of Exam: 06/10/17 Exam# [id number] Ordering Dr: Chaparrita Albrecht DO STUDY: MRI [...] Service support , CC: Chaparrita Albrecht DO Product Introduction Manager: Signed 05-May-2017 Chest PA and Lateral Result: Comments: See Note; NOTES: [facility] Imaging Services [address] [place] [address] Chest PA and Lateral MR#: [id number] Acct: [id number] Name: CLARENCE ALBERT Rep #: [id number] : 1940 F 77 From: Edwar Patino MD PCP: Chaparrita Albrecht DO Status: REG CLI Study: Chest PA and Lateral Date of Exam: 05/05/17 Exam# [id number] Ordering Dr: Keri Singh MD STUDY: X-RAY [...] CC: Keri Singh MD; Chaparrita Albrecht DO Product Introduction Manager: Signed 02-Nov-2016 Dexa Bone Density Study (HP) Result: Comments: See Note; NOTES: [facility] Imaging Services [address] [place] [address] Verdana 4d Dexa Bone Density Study (HP) MR#: [id number] Acct: [id number] Name: LYNNE ALBERT Rep #: [id number] : 1940 F 76 From: Misael Hebert MD PCP: Chaparrita Albrecht DO Status: REG CLI Study: Dexa Bone Density Study (HP) Date of Exam: 11/02/16 Exam# [id number] Ordering Dr: Laura DO STUDY: DUAL ENERGY [...] Misael Hebert MD at 11:02 EDT Tel [phone], Service support , CC: Chaparrita Albrecht DO Product Introduction Manager: Signed 02-Nov-2016 SCREENING MAMM (CAD), BILAT Result: Comments: See Note; NOTES: [facility] Imaging Services [address] [place] [address] Verdana 4d SCREENING MAMM (CAD), BILAT MR#: [id number] Acct: [id number] Name: CLARENCE ALBERT Rep #: [id number] : 1940 F 76 From: Misael Hebert MD PCP: Chaparrita Albrecht DO Status: [facility] CLI Study: SCREENING MAMM (CAD), BILAT Date of Exam: 11/02/16 Exam# [id number] Ordering Dr: Case Albrecht DO MAMMOGRAPHY - [...] delay biopsy of a clinically suspicious abnormality. [id number] Electronically Signed: Misael Hebert MD at 12:44 EDT Tel [phone], Service support , CC: Chaparrita Albrecht DO Product Introduction Manager: Signed 05-Aug-2016 Venous Duplex Lower Extremity Result: Comments: See Note; NOTES: [facility] Cardiovascular Services [address] [place] [address] Venous Duplex US, Unilateral 08/05/16 1053 MR#: [id number] Acct: [id number] Name: CLARENCE WEI Rep #: [id number] : 1940 76 From: Elvin Natarajan MD [...] Dictated: 08/05/16 1053 Date Transcribed: 08/05/16 1127 Product Introduction Manager: Signed 27-May-2016 Knee 4 or More Views Result: Comments: See Note; NOTES: [facility] Imaging Services [address] [place] [address] Verdana 4d Knee 4 or More Views MR#: [id number] Acct: [id number] Name: CLARENCE ALBERT Rep #: [id number] : 1940 F 76 From: Misael Hebert MD PCP: Chaparrita Albrecht DO Status: REG CLI Study: Knee 4 or More Views Date of Exam: 05/27/16 Exam# [id number] Ordering Dr: Kylah Linda UDY: X-RAY - [...] MD at 10:41 EST , Service support [phone], CC: Chaparrita Albrecht DO; Kylah Linda DO Product Introduction Manager: Signed 13-May-2016 Sinus/Facial Bone Result: Comments: See Note; NOTES: [facility] Imaging Services [address] [place] [address] Verdana 4d Sinus/Facial Bone MR#: [id number] Acct: [id number] Name: CLARENCE ALBERT Rep #: [id number] : 1940 F 76 From: Godwin Winter MD PCP: Chaparrita Albrecht DO Status: REG CLI Study: Sinus/Facial Bone Date of Exam: 05/13/16 Exam# [id number] Ordering Dr: Alejandro Silverman MD STUDY: CT [...] MD at 7:35 EST , Service support [phone], CC: Chaparrita Albrecht DO; Alejandro Silverman MD Product Introduction Manager: Signed 21-Apr-2016 Emergency Department Summary Result: Comments: See Note; NOTES: [facility] Medical Records Department [address] [place] [address] Emergency Department Summary MR#: [id number] Acct: [id number] Name: CLARENCE ALBERT Rep #: [id number] : 1940 76 From: Carissa Murphy MD [...] epistaxis. CARISSA MURPHY MD T: NTS JOB: [id number] 04/21/1606 <Electronically signed by Carissa Murphy MD> Date Carissa donovan MD Cosigner Signature (If Indicated): Date CC: Chaparrita Albrecht DO Date Dictated: 04/20/161711 Date Transcribed: 04/20/161711 Product Introduction Manager: Signed 20-Apr-2016 Discharge Instruction Result: Comments: See Note; NOTES: [facility] Medical Records Department [facility] [place] [address] Discharge Instruction 04/20/16 1303 MR#: [id number] Acct: [id number] Name: CLARENCE ALBERT Rep #: [id number] : 1940 76 From: Carissa Murphy MD [...] your Primary Care Provider. Call [facility] ([phone]) or report to the closest Emergency Room. Call 911 if necessary. 04/20/16 1645 <Electronically signed by Carissa Murphy MD> Date Carissa Murphy MD Cosigner Signature (If I ndicated): Date CC: Chaparrita Albrecht DO 02-Nov-2015 Carotid Duplex Ultrasound Result: Comments: See Note; NOTES: [facility] Cardiovascular Services [address] [place] [address] Carotid Duplex Ultrasound 10/30/15 1100 MR#: [id number] Acct: [id number] Name: CLARENCE ALBERT Rep #: [id number] : 1940 75 From: Elvin Natarajan MD [...] the left vertebral artery. Procedure Carotid Duplex 23158. The exam was diagnostic. Exam performed in [...] Dictated: 10/30/15 1100 Date Transcribed: 11/02/15 1143 Product Introduction Manager: Signed 30-Oct-2015 Bilat Scrn Digital AND CAD Result: Comments: See Note; NOTES: [facility] Imaging Services [address] [place] [address] Verdana 4d Bilat Scrn Digital AND CAD MR#: [id number] Acct: [id number] Name: CLARENCE ALBERT Rep #: [id number] : 1940 F 75 From: Andres Brady MD PCP: Chaparrita Albrecht DO Status: REG CLI Study: Bilat Scrn Digital AND CAD Date of Exam: 10/30/15 Exam# [id number] Ordering Dr: Chaparrita Albrecht DO MAMMOGRAPHY - [...] biop sy of a clinically suspicious abnormality. [id number] Electronically Signed: Andres Brady MD at 17:48 EDT Tel , Service support [phone], CC: Chaparrita Albrecht DO Product Introduction Manager: Signed 30-Oct-2015 Saad Jaffe Digital AND CAD Result: Comments: See Note; NOTES: [facility] Imaging Services [address] [place] [address] Verd[place] 4d Billila Jaffe Digital AND CAD MR#: [id number] Acct: [id number] Name: CLARENCE ALBERT Rep #: [id number] : 1940 F 75 From: Andres Brady MD PCP: Chaparrita Albrecht DO Status: REG CLI Study: Saad Jaffe Digital AND CAD Date of Exam: 10/30/15 Exam# [id number] Ordering Dr: Chaparrita Albrecht DO MAMMOGRAPHY - [...] abnormalities are identified. CC: Chaparrita Albrecht DO Product Introduction Manager: Signed 22-Oct-2015 ELECTROCARDIOGRAM, COMPLETE (ECG) (85916) Comments: ekg showed normal sinus rhythym, normal axis, no acute st/t wave changes no change Result: [MEASUREMENTS ANALYSIS] Date of Test: 10/22/2015 14:41:29; Heart Rate: 71; [place] Interval: 140; QRS: 94; QT Interval: 384; Corrected QT Interval (QTc): 403; P [place]: 58; QRS [place]: -3; T [place]: 56; Blood Pressure: 128/76 [ECG DIAGNOSTIC STATEMENTS] Date of Test: 10/22/2015 14:41:29; Summary: Sinus Rhythm Low voltage -possible pulmonary disease. ABNORMAL 22-Jul-2015 Kidney and Bladder Result: Comments: See Note; NOTES: [facility] Imaging Services [address] [place] [address] Verdana 4d Kidney and Bladder MR#: [id number] Acct: [id number] Name: ALBERTYaniv Rep #: [id number] : 1940 F 75 From: Nir Sanchez MD PCP: Chaparrita Albrecht DO Status: REG CLI Study: Kidney and Bladder Date of Exam: 07/22/15 Exam# [id number] Ordering Dr: Chaparrita Albrecht DO STUDY: RENAL [...] Service support , CC: Chaparrita Albrecht DO Product Introduction Manager: Signed 11-Mar-2015 Knee 4 or More Views Result: Comments: See Note; NOTES: [facility] Imaging Services [address] [place] [address] Verdana 4d Knee 4 or More Views MR#: [id number] Acct: [id number] Name: CLARENCE ALBERT Rep #: [id number] : 1940 F 74 From: Trent Cameron DO PCP: Chaparrita Albrecht DO Status: REG CLI Study: Knee 4 or More Views Date of Exam: 03/11/15 Exam# [id number] Ordering Dr: Case Albrecht DO STUDY: X-RAY [...] at 7:45 EST Tel , Service support [phone], RAD/Knee 4 or More Views IMPRESSION: Degener ative changes within the knee. No acute fracture. Small suprapatellar effusion. Electronically Signed: Trent Cameron DO at 7:45 EST Tel , Service support [phone], CC: Chaparrita Albrecht DO Product Introduction Manager: Signed 11-Mar-2015 Knee 4 or More Views Result: Comments: See Note; NOTES: [facility] Imaging Services [address] [place] [address] Verdana 4d Knee 4 or More Views MR#: [id number] Acct: [id number] Name: CLARENCE ALBERT Rep #: [id number] : 1940 F 74 From: Trent Cameron DO PCP: Chaparrita Albrecht DO Status: REG CLI Study: Knee 4 or More Views Date of Exam: 03/11/15 Exam# [id number] Ordering Dr: Case Albrecht DO STUDY: X-RAY [...] at 7:46 EST Tel , Service support [phone], RAD/Knee 4 or More Views IMPRESSION: Mild degenerative changes. No acute bony abnormality. Electronically Signed: Trent Cameron DO at 7:46 EST Tel , Service support [phone], CC: Chaparrita Albrecht DO Product Introduction Manager: Signed 18-Oct-2014 Carotid Duplex Ultrasound Result: Comments: See Note; NOTES: [facility] Cardiovascular Services [address] [place] [address] Carotid Duplex Ultrasound 10/18/14 1331 MR#: [id number] Acct: [id number] Na me: CLARENCE ALBERT Rep #: [id number] : 1940 74 From: Elvin Natarajan MD [...] the left vertebral artery. Procedure Carotid Duplex 94632. The exam was diagnostic. Exam performed in [...] Dictated: 10/18/14 1331 Date Transcribed: 10/18/14 1616 Product Introduction Manager: Signed 18-Oct-2014 Bilat Scrn Digital AND CAD Result: Comments: See Note; NOTES: [facility] Imaging Services [address] [place] [address] Breast Imaging Report MR#: [id number] Acct: [id number] Name: CLARENCE ALBERT Rep #: [id number] : 1940 F 74 From: Misael Hebert MD PCP: Chaparrita Albrecht DO Status: REG CLI Study: Saad Scrn Digital AND CAD Date of Exam: 10/18/14 Exam# [id number] Ordering Dr: Chaparrita Albrecht DO MAMMOGRAPHY - [...] Misael redmond MD at 13:44 EDT Tel [phone], Service support [phone], CC: Chaparrita Albrecht DO Product Introduction Manager: Signed 09-Jul-2014 Dexa Bone Density Study (HP) Result: Comments: See Note; NOTES: [facility] Imaging Services [address] [place] [address] Bone Density Report MR#: [id number] Acct: [id number] Name: CLARENCE ALBERT Rep #: [id number] : 1940 F 74 From: Misael Hebert MD PCP: Chaparrita Albrecht DO Status: REG CLI Study: Dexa Bone Density Study (HP) Date of Exam: 07/09/14 Exam# [id number] Ordering Dr: Chaparrita Albrecht DO STUDY: DUAL [...] Angel Hebert MD at 14:55 EDT Tel [phone], Service support [phone], CC: Chaparrita Albrecht DO Product Introduction Manager: Signed 17-Sep-2013 Chest PA and Lateral Result: Comments: See Note; NOTES: [facility] Imaging Services [address] [place] [address] Radiology Report MR#: [id number] Acct: [id number] Name: CLARENCE ALBERT Rep #: [id number] : 1940 F 73 From: David Bennett MD PCP: Chaparrita Albrecht DO Status: REG CLI Study: Chest PA and Lateral Date of Exam: 09/17/13 Exam# [id number] Ordering Dr: Chaparrita Albrecht DO STUDY: X-RAY [...] MD at 20:44 EDT , Service support [phone], RAD/Chest PA and Lateral IMPRESSION: No focal infiltrate or edema. Electronic ally Signed: David Bennett MD at 20:44 EDT , Service support [phone], CC: Chaparrita Albrecht DO Product Introduction Manager: Signed 17-Sep-2013 Spirometry (77214) Result: 29-Aug-2013 Carotid Duplex Ultrasound Result: Comments: See Note; NOTES: [facility] Cardiovascular [address] [address] Carotid Duplex Ultrasound 08/24/13 0939 MR#: [id number] Acct: [id number] Chalo e: CLARENCE ALBERT Rep #: [id number] : 1940 73 From: Anurag Loya MD [...] in the left bulb. Procedure Carotid Duplex 09101. Exam perfor med in department. Interpretation Summary Mild (<50%) stenosis right extracranial internal carotid. Mild (<50%) stenosis left extracranial internal carotid. Flow within the vertebra l arteries is antegrade bilaterally. Ordering Physician: Chaparrita Albrecht Performed By: Kendal Benton RVT : Chaparrita Albrecht DO Date Dictated: 08/24/13 0939 Date Transcribed: 08/29/13 1118 Product Introduction Manager: Signed Immunization Name Dates Details Influenza (3 years and up) on: 16-Jan-2008 Comments: Lot #: [id number] date: 09/10Amount given: 0.5 mlRoute: IMSite given: Left deltoidGiven by: Olivia Bell LPN Influenza (3 years and up) on: 09-Jan-2009 Comments: Lot #[id number]-left deltoidDose0.5mlgiven by Marycarmen Jorge LPN Pneumococcal (2 years and up) on: 29-Aug-2007 Comments: 0.5cc given im lt arm [id number] exp 02-13-08 Family History Unknown Family Member [...] 0.00 cm Results Date Description Value Details 87-Rmo-463524:24 HgA1C , Office (15292) HgA1C , Office 6.5 % (Normal) Range: 4.6 - 7.1 :14 LIPID PANEL (85634) Comments: PATIENT WAS FASTINGPERFORMED BY: [facility] Aiijtg3500 [facility] [id number] LDL/HDL Ratio 1.1 {ratio} (Normal) Range: 0.0-3.2 [...] (Normal) Range: 100-199 :14 Vitamin D Hydroxy (47472) Comments: PATIENT WAS FASTINGPERFORMED BY: [facility] HospitalZrptwh0329 [facility] [id number] Vitamin D, 25-Hydroxy 37.8 ng/mL (Normal) Range: 30.0-100.0 Comments: Vitamin D deficiency has been defined by the [place] [facility] and an Endocrine Society practice guideline as alevel of serum 25-OH vitamin D less than 20 ng/mL (1,2).The Endocrine Society went on to further define vitamin Dinsufficiency as a level between 21 and 29 ng/mL (2).1. IOM ([place] of Medicine). 2010. Dietary reference intakes for calcium and D. [place]: The National AcademNanoference Press.2. Mira MF, Rosette LOPEZ, Tommy SWAIN, et al. Evaluation, treatment, and prevention of vitamin D deficiency: an Endocrine Society clinical practice guideline. JCEM. 2010; 96(7):1911-30. :14 CBC with auto diff (58380) Comments: PATIENT WAS FASTINGPERFORMED BY: [facility] Opplvl0559 [facility] [id number] Immature Grans (Abs) 0.0 {x10E3/uL} (Normal) Range: [...] PANEL, COMPREHENSIVE Comments: PATIENT WAS FASTINGPERFORMED BY: [facility] HospitalQscthq3787 [facility] [id number] (90816) ALT (SGPT) 10 [iU]/L (Normal) Range: 0-32 [...] CREATININE RATIO Comments: PATIENT WAS FASTINGPERFORMED BY: [facility] HospitalWuhgwb4627 [facility] [id number] (29741) AND (25314) Alb/Creat Ratio 4213.3 {mg/g_creat} (Abnormal) Range: 0.0-30.0 Albumin, Urine 3206.3 ug/mL (Normal) Comments: Results confirmed ondilution. Creatinine, Urine 76.1 mg/dL (Normal) :40 CBC & PLATELETS (AUTO) (92395) Comments: please fax to Dr. Austin- [phone]; PATIENT WAS FASTINGPERFORMED BY: [facility] HospitalKioser1402 [facility] [id number] Platelets 148 {x10E3/uL} (Abnormal) Range: 150-379 RDW [...] PANEL Comments: please fax to Dr. Austin- [phone]; PATIENT WAS FASTINGPERFORMED BY: [facility]6370 [facility] [id number] Information: 680860,V92644 FX DR. SANTANA (34803) Albumin 3.1 g/dL (Abnormal) Range: 3.5-4.8 Phosphorus [...] 8-27 Glucose 133 mg/dL (Abnormal) Range: 65-99 33-Jpl-90875:40 MAGNESIUM (34802) Comments: please fax to Dr. Austin- [phone]; PATIENT WAS FASTINGPERFORMED BY: [facility] Egfmkr6372 [facility] [id number] Magnesium 1.9 mg/dL (Normal) Range: 1.6-2.3 62-Orq-35394:40 CALCIFEDIOL (62661) Comments: please fax to Dr. Austin- [phone]; PATIENT WAS FASTINGPERFORMED BY: [facility]orporatedMead[facility] Psych[facility] HospitalEosdev5953 [facility] [id number] Vitamin D, 25-Hydroxy 29.4 ng/mL (Abnormal) Range: 30.0-100.0 Comments: Vitamin D deficiency has been defined by the [place] ofMedicine and an Endocrine Society practice guideline as alevel of serum 25-OH vitamin D less than 20 ng/mL (1,2).The Endocrine Society went on to further define vitamin Dinsufficiency as a level between 21 and 29 ng/mL (2).1. IOM ([place] of Medicine). 2010. Dietary reference intakes for calcium and D. [place]: The National Academies Press.2. Mira OLIVEIRA, Rosette LOPEZ, Tommy SWAIN, et al. Evaluation, treatment, and prevention of vitamin D deficiency: an Endocrine Society clinical practice guideline. JCEM. 2010; 96(7):1911-30. :40 PARATHORMONE (05633) Comments: please fax to Dr. Austin- [phone]; PATIENT WAS FASTINGPERFORMED BY: [facility] [address]aw[address] [place] [id number] PTH, Intact 22 pg/mL (Normal) Range: 15-65 :30 COLON BIOPSY (CHOOSE See Note (Normal) Comments: [facility] [address] [place], [address] SITE) Comments: Patient: CLARENCE ALBERT : 1940 (77/F) Acct Num: [id number] Phys: Marcus Caldera Unit Num: [id number] Loc: [facility] Specimen: [id number] Received: 09/16/171528 Spec Type: C OLON BX [...] one cassette. / Elsi 09/19/17 TC:1 CPT: 33095 x2 HEADER OPERATION: Colonoscopy PRE-OP DIAGNOSIS: History [...] PANEL, COMPREHENSIVE Comments: PATIENT NOT FASTINGPERFORMED BY: [facility] HospitalOhtbpn5300 [facility] [id number] (68124) ALT (SGPT) 14 [iU]/L (Normal) Range: 0-32 [...] (Abnormal) Range: 65-99 :07 HgA1C , Office (32336) HgA1C , Office 7.2 % (Abnormal) Range: 4.6 - 7.1 :37 Clostridium difficile Toxin Comments: PATIENT NOT FASTINGPERFORMED BY: [facility] HospitalGxmzou0078 [facility] [id number] A+B, EIA (30742) C difficile Toxins A+B, EIA Negative (Normal) :37 LEUKOCYTE COUNT, FECAL (72145) Comments: PATIENT NOT FASTINGPERFORMED BY: [facility] [id number] Result 1 NWBC (Normal) Comments: No white blood cells seen. White Blood Cells (WBC), Final report (Normal) Stool :37 OVA & PARASITE DIR SMEAR Comments: PATIENT NOT FASTINGPERFORMED BY: [facility] [id number] (43222) Result 1 NOCP (Normal) Comments: No ova, cysts, or parasites seen. Ova + Parasite Exam Final report (Normal) Comments: These results were obtained using wet preparation(s) and trichromestained smear. This test does not include testing for Cryptosporidiumparvum, Cyclospora, or Microsporidia. :37 SETH CULTURE-STOOL (61635) Comments: PATIENT NOT FASTINGPERFORMED BY: [facility] [id number] Information: SRC:ST SRC:ST E coli Shiga Toxin EIA Negative (Normal) Result 1 NCI (Normal) Comments: No Campylobacter species isolated. Campylobacter Culture Final report (Normal) Result 1 NSS (Normal) Comments: No Salmonella or Shigella recovered. Salmonella/Shigella Screen Final report (Normal) :06 Renal function Panel Comments: fax copy to Dr. Santana [phone]; A courtesy copy of this report has been sent [phone].PATIENT NOT FASTINGPERFORMED BY: [facility] [id number] Information: NURSE DRAW (40348) Albumin 3.5 g/dL (Normal) Range: 3.5-4.8 Phosphorus [...] copy of this report has been sent [phone].PATIENT NOT FASTINGPERFORMED BY: [facility] [id number] :02 Range: 15-65 Vitamin D, 25-Hydroxy 34.7 ng/mL (Normal) Comments: A courtesy copy of this report has been sent [phone].PATIENT NOT FASTINGPERFORMED BY: [employer] [id number] :02 Range: 30.0-100.0 Comments: Vitamin D deficiency has been defined by the [place] of[place]icine and an Endocrine Society practice guideline as alevel of serum 25-OH vitamin D less than 20 ng/mL (1,2).The Endocrine Society went on to further define vitamin Dinsufficiency as a level between 21 and 29 ng/mL (2).1. IOM ([place] of Medicine). 2010. Dietary reference intakes for calcium and D. [place]: The National Academies Press.2. Mira MF, Rosette LOPEZ, Tommy SWAIN, et al. Evaluation, treatment, and prevention of vitamin D deficiency: an Endocrine Society clinical practice guideline. JCEM. 2010; 96(7):1911-30. 8-Vrm-399921:02 MICROALBUMIN: CREATININE RATIO Comments: send results to Dr. Santana fax: [phone]; A courtesy copy of this report has been sent [phone].PATIENT NOT FASTINGPERFORMED BY: Black Drumm Cusgcg3107 [employer] [facility] [id number] (65357) AND (50545) Alb/Creat Ratio 4191.2 {mg/g_creat} (Abnormal) Range: 0.0-30.0 Albumin, Urine 2380.6 ug/mL (Normal) Comments: Results confirmed ondilution. Creatinine, Urine 56.8 mg/dL (Normal) 2-Cyd-987654:02 CBC, PLATELETS & MANUAL Comments: send results to Dr. Santana fax: [phone]; A courtesy copy of this report has been sent [phone].PATIENT NOT FASTINGPERFORMED BY: LabCoMeadowview Psychiatric HospitalStaver3438 [facility] [id number] Information: VIT D25, PTH DIFF (55524) Immature Grans (Abs) 0.0 {x10E3/uL} (Normal) Range: [...] 3.77-5.28 WBC 5.4 {x10E3/uL} (Normal) Range: 3.4-10.8 4-Pom-056361:02 MAGNESIUM (14835) Comments: send results to Dr. Santana fax: [phone]; A courtesy copy of this report has been sent [phone].PATIENT NOT FASTINGPERFORMED BY: Digital Vega70 [facility] [id number] Magnesium, Serum 1.8 mg/dL (Normal) Range: 1.6-2.3 0-Ikf-114984:02 RENAL FUNCTION PANEL (39792) Comments: send results to Dr. Santana fax: [phone]; A courtesy copy of this report has been sent [phone].PATIENT NOT FASTINGPERFORMED BY: Digital Vega70 [address] [facility] [id number] Albumin, Serum 3.7 g/dL (Normal) Range: 3.5-4.8 [...] Glucose, Serum 119 mg/dL (Abnormal) Range: 65-99 3-Tzt-609680:07 LIPID PANEL (25351) Comments: PATIENT WAS FASTINGPERFORMED BY: [employer]6370 [facility] [id number] LDL/HDL Ratio 1.4 {ratio} (Normal) Range: 0.0-3.2 Comments: LDL/HDL Ratio Men Women 1/2 Avg.Risk 1.0 1.5 Av g.Risk 3.6 3.2 2X Avg.Risk 6.2 5.0 3X Avg.Risk 8.0 6.1 LDL Cholesterol Calc 102 mg/dL (Abnormal) Range: 0-99 VLDL Cholesterol Cesar 17 mg/dL (Normal) Range: 5-40 HDL Cholesterol 75 mg/dL (Normal) Triglycerides 84 mg/dL (Normal) Range: 0-149 Cholesterol, Total 194 mg/dL (Normal) Range: 100-199 9-Jgy-107875:07 CBC W/AUTO DIFF WBC (07875) Comments: PATIENT WAS FASTINGPERFORMED BY: LabCo Ggndxn7957 [facility] [id number] Immature Grans (Abs) 0.0 {x10E3/uL} (Normal) Range: [...] 3.77-5.28 WBC 4.8 {x10E3/uL} (Normal) Range: 3.4-10.8 9-Zcy-614152:07 METABOLIC PANEL, COMPREHENSIVE Comments: PATIENT WAS FASTINGPERFORMED BY: [facility] Apbjms5649 [place] [facility] [id number] (46269) ALT (SGPT) 14 [iU]/L (Normal) Range: 0-32 [...] 8-27 Glucose 158 mg/dL (Abnormal) Range: 65-99 6-Kyh-436044:07 VITAMIN B-12 (CYANOCOBALAMIN) Comments: PATIENT WAS FASTINGPERFORMED BY: EVE LabCoMeadowview Psychiatric HospitalQppicb0312 [facility] [id number] (88940) Vitamin B12 771 pg/mL (Normal) Range: 232-1245 13-May-20170:00 CDIFF (Molecular) Comments: [facility] Mvntfbiaor[address] [place], [address] CDIFF See Note (Normal) Comments: Cdiff-MolecularNormal Reference Range = Negative C. Diff DNA Negative- No toxigenic C. Diff DNA DetectedNAAT METHOD Testing was performed using nucleic acid amplification :32 Rapid Flu (87410 x 2) Influenza A Ag Negative (Normal) :35 CBC with auto diff (58252) Comments: PATIENT WAS FASTINGPERFORMED BY: [facility] Edgwga4301 [facility] [id number] Immature Grans (Abs) 0.0 {x10E3/uL} (Normal) Range: [...] PANEL, COMPREHENSIVE Comments: PATIENT WAS FASTINGPERFORMED BY: LabCoMeadowview Psychiatric HospitalHeeycu0373 [facility] [id number] (22165) ALT (SGPT) 16 [iU]/L (Normal) Range: 0-32 [...] Glucose, Serum 145 mg/dL (Abnormal) Range: 65-99 12-Tif-945376:51 HgA1C , Office (74918) HgA1C , Office 6.7 % (Normal) Range: 4.6 - 7.1 :50 CALCIFEDIOL (47649) Comments: A courtesy copy of this report has been sent [phone].PATIENT WAS FASTINGPERFORMED BY: [employer]6370 Hotel[place]lyRevolut [place] [id number] Vitamin D, 25-Hydroxy 40.7 ng/mL (Normal) Range: 30.0-100.0 Comments: Vitamin D deficiency has been defined by the [place] of[facility] and an Endocrine Society practice guideline as alevel of serum 25-OH vitamin D less than 20 ng/mL (1,2).The Endocrine Society went on to further define vitamin Dinsufficiency as a level between 21 and 29 ng/mL (2).1. IOM ([place] of Medicine). 2010. Dietary reference intakes for calcium and D. [place]: The National Academies Press.2. Mira MF, Rosette LOPEZ, Tommy SWAIN, et al. Evaluation, treatment, and prevention of vitamin D deficiency: an Endocrine Society clinical practice guideline. JCEM. 2010; 96(7):1911-30. 1-Bki-901404:50 PTH (PARATHORMONE) (01710) Comments: A courtesy copy of this report has been sent [phone].PATIENT WAS FASTINGPERFORMED BY: Digital Vega70 HotelQuicklyAlleghany Health [id number] PTH, Intact 20 pg/mL (Normal) Range: 15-65 9-Agi-727622:50 MICROALBUMIN: CREATININE RATIO Comments: A courtesy copy of this report has been sent [phone].PATIENT WAS FASTINGPERFORMED BY: [employer]6370 HotelQuicklyAlleghany Health [id number] (26119) AND (48185) Microalb/Creat Ratio 4376.0 {mg/g_creat} (Abnormal) Range: 0.0-30.0 Microalbumin, Urine 3369.5 ug/mL (Normal) Comments: Results confirmed ondilution. Creatinine, Urine 77.0 mg/dL (Normal) 1-Myg-481954:50 Renal function Panel Comments: A courtesy copy of this report has been sent [phone].PATIENT WAS FASTINGPERFORMED BY: Digital Vega70 [facility] [id number] Information: FX DR. SANTANA [phone] (00828) Albumin, Serum 3.8 g/dL (Normal) Range: 3.5-4.8 [...] Glucose, Serum 203 mg/dL (Abnormal) Range: 65-99 0-Bqu-979366:50 Magnesium (82780) Comments: A courtesy copy of this report has been sent [phone].PATIENT WAS FASTINGPERFORMED BY: FlightfoxMeadowview Psychiatric HospitalKmgoqj2248 [facility] [id number] Magnesium, Serum 1.8 mg/dL (Normal) Range: 1.6-2.3 3-Rkr-364964:53 CBC with auto diff (35393) Comments: A courtesy copy of this report has been sent [phone].PATIENT WAS FASTINGPERFORMED BY: [facility]6370 [facility] [id number] Immature Grans (Abs) 0.0 {x10E3/uL} (Normal) Range: [...] {x10E3/uL} (Normal) Range: 3.4-10.8 :53 LIPID PANEL (82046) Comments: A courtesy copy of this report has been sent [phone].PATIENT WAS FASTINGPERFORMED BY: LabAscension [facility] Hospital6370 [facility] [id number] LDL/HDL Ratio 1.2 {ratio_units} (Normal) Range: 0.0-3.2 Comments: LDL/HDL Ratio Men Women 1/2 Avg.Risk 1.0 1.5 Av g.Risk 3.6 3.2 2X Avg.Risk 6.2 5.0 3X Avg.Risk 8.0 6.1 LDL Cholesterol Calc 90 mg/dL (Normal) Range: 0-99 VLDL Cholesterol Cesar 13 mg/dL (Normal) Range: 5-40 HDL Cholesterol 76 mg/dL (Normal) Triglycerides 67 mg/dL (Normal) Range: 0-149 Cholesterol, Total 179 mg/dL (Normal) Range: 100-199 0-Jfc-239582:53 METABOLIC PANEL, COMPREHENSIVE Comments: A courtesy copy of this report has been sent [phone].PATIENT WAS FASTINGPERFORMED BY: FlightfoxLos Alamos Medical CenterCihqsa8647 [facility] [id number] (81070) ALT (SGPT) 11 [iU]/L (Normal) Range: 0-32 [...] Glucose, Serum 205 mg/dL (Abnormal) Range: 65-99 52-Krq-364338:57 HgA1C , Office (89148) HgA1C , Office 7.1 % (Normal) Range: 4.6 - 7.1 10-Nov-20169:09 LIPID PANEL (81437) Comments: PATIENT WAS FASTINGPERFORMED BY: FlightfoxLos Alamos Medical CenterFynlux8765 [facility] [id number] LDL/HDL Ratio 1.3 {ratio_units} (Normal) Range: 0.0-3.2 [...] PANEL, COMPREHENSIVE Comments: PATIENT WAS FASTINGPERFORMED BY: LabCoMeadowview Psychiatric HospitalZusqfy8488 [facility] [id number] (82670) ALT (SGPT) 12 [iU]/L (Normal) Range: 0-32 [...] (Abnormal) Range: 65-99 :50 HgA1C , Office (82947) HgA1C , Office 6.7 % (Normal) Range: 4.6 - 7.1 :25 Magnesium, Serum 1.9 mg/dL (Normal) Comments: PATIENT WAS FASTINGPERFORMED BY: [facility] Eovekv5653 [address] RoadDublin [place] [id number] Range: 1.6-2.3 :25 Microalb/Creat Ratio, Randm Ur Comments: PATIENT WAS FASTINGPERFORMED BY: LabAustin Logistics Incorporatedrp Uyyktv2268 [address]by RoadDublin [place] [id number] Microalb/Creat Ratio 2652.0 {mg/g_creat} Range: 0.0-30.0 (Abnormal) Microalbumin, Urine 2482.3 ug/mL (Normal) Comments: Results confirmed ondilution. Creatinine, Urine 93.6 mg/dL (Normal) PTH, Intact 26 pg/mL (Normal) Comments: PATIENT WAS FASTINGPERFORMED BY: LabAustin Logistics Incorporatedrp Sheouf5517 [address] RoadDublin [place] [id number] :25 Range: 15-65 :25 Renal Panel (10) Comments: PATIENT WAS FASTINGPERFORMED BY: [facility] Rsrsmy5484 [address] RoadDublin [place] [id number] Phosphorus, Serum 4.3 mg/dL (Normal) Range: 2.5-4.5 :25 Thyroxine (T4) Free, Direct, S Comments: PATIENT WAS FASTINGPERFORMED BY: [facility] Faapie2917 [address] RoadDublin [place] [id number] T4,Free(Direct) 1.08 ng/dL (Normal) Range: 0.82-1.77 : TSH 2.980 {uIU/mL} Comments: PATIENT WAS FASTINGPERFORMED BY: [facility] Pvnztu0908 [address] RoadDublin [place] [id number] 25 (Normal) Range: 0.450-4.500 : Vitamin D, 25-Hydroxy 37.1 ng/mL (Normal) Comments: PATIENT WAS FASTINGPERFORMED BY: [employer] Fltmgl0441 [facility] [id number] 25 Range: 30.0-100.0 Comments: Vitamin D deficiency has been defined by the [place] ofMedicine and an Endocrine Society practice guideline as alevel of serum 25-OH vitamin D less than 20 ng/mL (1,2).The Endocrine Society went on to further define vitamin Dinsufficiency as a level between 21 and 29 ng/mL (2).1. IOM ([place] of Medicine). 2010. Dietary reference intakes for calcium and D. [place]: The National Academies Press.2. Mira MF, Rosette LOPEZ, Tommy SWAIN, et al. Evaluation, treatment, and prevention of vitamin D deficiency: an Endocrine Society clinical practice guideline. JCEM. 2010; 96(7):1911-30. -:25 CBC W/AUTO DIFF WBC (95925) Comments: PATIENT WAS FASTINGPERFORMED BY: [facility] Oyomsg9569 [facility] [id number] Immature Grans (Abs) 0.0 {x10E3/uL} (Normal) Range: [...] COMPREHENSIVE Comments: PATIENT WAS FASTINGPERFORMED BY: LabCo Dgjdkh7134 [facility] [id number]; non- emergent till apt (74733) ALT (SGPT) 10 [iU]/L (Normal) Range: 0-32 [...] mg/dL (Abnormal) Range: 65-99 :25 LIPID PANEL (88139) Comments: PATIENT WAS FASTINGPERFORMED BY: [facility] OrthopedicsAscension River District Hospital6370 [facility] [id number] LDL/HDL Ratio 0.9 {ratio_units} (Normal) Range: 0.0-3.2 Comments: LDL/HDL Ratio Men Women 1/2 Avg.Risk 1.0 1.5 Av g.Risk 3.6 3.2 2X Avg.Risk 6.2 5.0 3X Avg.Risk 8.0 6.1 LDL Cholesterol Calc 65 mg/dL (Normal) Range: 0-99 VLDL Cholesterol Cesar 19 mg/dL (Normal) Range: 5-40 HDL Cholesterol 75 mg/dL (Normal) Triglycerides 93 mg/dL (Normal) Range: 0-149 Cholesterol, Total 159 mg/dL (Normal) Range: 100-199 36-Jwr-274313:54 HgA1C , Office (89980) HgA1C , Office 6.6 % (Normal) Range: 4.6 - 7.1 85-Quz-077629:1 Magnesium, Serum 2.1 mg/dL (Normal) Comments: PATIENT WAS FASTINGPERFORMED BY: [facility]opedicsAsc[facility] Hospital6370 [facility] [id number] 2 Range: 1.6-2.3 56-Hqp-853404:12 Microalb/Creat Ratio, Randm Ur Comments: PATIENT WAS FASTINGPERFORMED BY: [facility] OrthopedicsAscension River District Hospital6370 [facility] [id number] Microalb/Creat Ratio 1863.4 {mg/g_creat} (Abnormal) Range: 0.0-30.0 Microalbumin, Urine 1416.2 ug/mL (Normal) Comments: Results confirmed ondilution. Creatinine, Urine 76.0 mg/dL (Normal) 15-Cxm-893498:12 Microscopic Examination Comments: PATIENT WAS FASTINGPERFORMED BY: [facility] OrthopedicsAscension River District Hospital6370 [facility] [id number] Bacteria None seen (Normal) Mucus Threads Present (Normal) Cast Type Hyaline casts (Normal) Casts Present {/lpf} (Abnormal) Epithelial Cells (non 0-10 {/hpf} Range: 0 - 10 renal) (Normal) RBC 3-10 {/hpf} Range: 0 - 2 (Abnormal) WBC 6-10 {/hpf} Range: 0 - 5 (Abnormal) PTH, Intact 36 pg/mL (Normal) Comments: PATIENT WAS FASTINGPERFORMED BY: [employer] Uqlxku2399 [facility] [id number] 0:12 Range: 15-65 Vitamin D, 25-Hydroxy 42.9 ng/mL (Normal) Comments: PATIENT WAS FASTINGPERFORMED BY: Black Drumm Yujidz4152 [facility] [id number] 0:12 Range: 30.0-100.0 Comments: Vitamin D deficiency has been defined by the [place] ofMedicine and an Endocrine Society practice guideline as alevel of serum 25-OH vitamin D less than 20 ng/mL (1,2).The Endocrine Society went on to further define vitamin Dinsufficiency as a level between 21 and 29 ng/mL (2).1. IOM ([place] of Medicine). 2010. Dietary reference intakes for calcium and D. [place]: The National Academies Press.2. Mira MF, Rosette [place], Tommy SWAIN, et al. Evaluation, treatment, and prevention of vitamin D deficiency: an Endocrine Society clinical practice guideline. JCEM. 2010; 96(7):1911-30. 65-Hys-242179:12 URINALYSIS, W/ MICRO (72672) Comments: PATIENT WAS FASTINGPERFORMED BY: Black Drumm Uqivmk5238 [facility] [id number] Microscopic Examination See below: (Normal) Comments: Microscopic was indicated and was performed. Nitrite, Urine Negative (Normal) Urobilinogen,Semi-Qn 0.2 mg/dL (Normal) Range: 0.2-1.0 Bilirubin Negative (Normal) Occult Blood Negative (Normal) Ketones Negative (Normal) Glucose Negative (Normal) Protein 4+ (Abnormal) WBC Esterase Trace (Abnormal) Appearance Clear (Normal) Urine-Color Yellow (Normal) pH 6.0 (Normal) Range: 5.0-7.5 Specific [place] 1.015 (Normal) Range: 1.005-1.030 85-Jrg-868145:12 CBC W/AUTO DIFF WBC (68478) Comments: PATIENT WAS FASTINGPERFORMED BY: [employer] [facility] [id number] Immature Grans (Abs) 0.0 {x10E3/uL} (Normal) Range: [...] 3.77-5.28 WBC 6.2 {x10E3/uL} (Normal) Range: 3.4-10.8 40-Kzc-680996:12 METABOLIC PANEL, COMPREHENSIVE Comments: PATIENT WAS FASTINGPERFORMED BY: FlightfoxMeadowview Psychiatric HospitalIstubu3933 [facility] [id number] (60230) ALT (SGPT) 14 [iU]/L (Normal) Range: 0-32 [...] Glucose, Serum 154 mg/dL (Abnormal) Range: 65-99 86-Xvg-772962:12 LIPID PANEL (56897) Comments: PATIENT WAS FASTINGPERFORMED BY: LabAscension [facility] District Hospital6370 [facility] [id number] LDL/HDL Ratio 0.7 {ratio_units} (Normal) Range: 0.0-3.2 Comments: LDL/HDL Ratio Men Women 1/2 Avg.Risk 1.0 1.5 Av g.Risk 3.6 3.2 2X Avg.Risk 6.2 5.0 3X Avg.Risk 8.0 6.1 LDL Cholesterol Calc 49 mg/dL (Normal) Range: 0-99 VLDL Cholesterol Cesar 14 mg/dL (Normal) Range: 5-40 HDL Cholesterol 75 mg/dL (Normal) Triglycerides 68 mg/dL (Normal) Range: 0-149 Cholesterol, Total 138 mg/dL (Normal) Range: 100-199 06-Vym-034335:50 HgA1C , Office (23948) HgA1C , Office 6.7 % (Normal) Range: 4.6 - 7.1 43-Nbz-294803:36 VITAMIN B-12 (CYANOCOBALAMIN) Comments: PATIENT WAS FASTINGPERFORMED BY: [facility]6370 [facility] [id number] (70110) Vitamin B12 802 pg/mL (Normal) Range: 211-946 56-Taf-868797:36 LIPID PANEL (72796) Comments: PATIENT WAS FASTINGPERFORMED BY: [facility] [place] [address] [id number] LDL/HDL Ratio 0.8 {ratio_units} (Normal) Range: 0.0-3.2 [...] Cholesterol, Total 161 mg/dL (Normal) Range: 100-199 12-Khi-300098:36 LDH (LD) (LACTATE DEHYDROGENASE) Comments: PATIENT WAS FASTINGPERFORMED BY: [facility]6370 [facility] [id number] (38106) LDH 217 [iU]/L (Normal) Range: 119-226 97-Tnc-157364:36 CBC W/AUTO DIFF WBC (56021) Comments: PATIENT WAS FASTINGPERFORMED BY: [facility]6370 [facility] [id number] Immature Grans (Abs) 0.0 {x10E3/uL} (Normal) Range: [...] 3.77-5.28 WBC 10.6 {x10E3/uL} (Normal) Range: 3.4-10.8 11-Zms-049982:36 METABOLIC PANEL, COMPREHENSIVE Comments: PATIENT WAS FASTINGPERFORMED BY: LabCo Zuddxl6868 [facility] [id number] (53787) ALT (SGPT) 15 [iU]/L (Normal) Range: 0-32 [...] Glucose, Serum 137 mg/dL (Abnormal) Range: 65-99 03-Zal-238109:36 TSH (02391) Comments: PATIENT WAS FASTINGPERFORMED BY: [employer] Qbxzjf2518 [facility] [id number] TSH 0.560 {uIU/mL} (Normal) Range: 0.450-4.500 23-Uod-93252:02 Renal function Panel (06613) Comments: PATIENT WAS FASTINGPERFORMED BY: [facility] Qgovzz6509 [facility] [id number] Albumin, Serum 3.7 g/dL (Normal) Range: 3.5-4.8 [...] 137 mg/dL (Abnormal) Range: 65-99 :02 MAGNESIUM (82372) Comments: PATIENT WAS FASTINGPERFORMED BY: [facility]inkAlleghany Health [id number] Magnesium, Serum 2.2 mg/dL (Normal) Range: 1.6-2.3 :02 MICROALBUMIN: CREATININE RATIO Comments: PATIENT WAS FASTINGPERFORMED BY: Digital V[employer]70 [employer] [facility] Joy HospitalInvia.czAlleghany Health [id number] (59403) AND (69246) Microalb/Creat Ratio 2038.7 {mg/g_creat} (Abnormal) Range: 0.0-30.0 Microalbumin, Urine 1223.2 ug/mL (Normal) Comments: Results confirmed ondilution. Creatinine, Urine 60.0 mg/dL (Normal) :02 CBC WITH MANUAL DIFF Comments: PATIENT WAS FASTINGPERFORMED BY: [employer] [facility] HospitalInvia.czAlleghany Health [id number] Information: [id number] (26229) Immature Grans (Abs) 0.0 {x10E3/uL} (Normal) Range: [...] {x10E3/uL} (Normal) Range: 3.4-10.8 :02 HGB A1C (76453) Comments: PATIENT WAS FASTINGPERFORMED BY: [employer] Labslin6370 [facility] [id number] Hemoglobin A1c 6.4 % (Abnormal) Range: 4.8-5.6 Comments: . Pre-diabetes: 5.7 - 6.4 Diabetes: >6.4 Glycemic control for adults with diabetes: <7.0 :02 Lipid Panel (85129) Comments: PATIENT WAS FASTINGPERFORMED BY: [employer]ega70 [facility] [id number] LDL/HDL Ratio 1.1 {ratio_units} (Normal) Range: 0.0-3.2 [...] Cholesterol, Total 160 mg/dL (Normal) Range: 100-199 39-Mfw-594678:03 HgA1C , Office (99982) HgA1C , Office 6.1 % (Normal) Range: 4.6 - 7.1 :24 CBC W/AUTO DIFF WBC Comments: PATIENT WAS FASTINGPERFORMED BY: LabCoMeadowview Psychiatric HospitalVpufyv7227 [facility] [id number] Information: [id number] (56104) Immature Grans (Abs) 0.0 {x10E3/uL} (Normal) Range: [...] CREATININE RATIO Comments: PATIENT WAS FASTINGPERFORMED BY: Black Drumm Svviix9311 [facility] [id number] (18159) AND (44203) Microalb/Creat Ratio 1223.8 {mg/g_creat} (Abnormal) Range: 0.0-30.0 Microalbumin, Urine 1012.1 ug/mL (Abnormal) Range: 0.0-17.0 Comments: Results confirmed ondilution. Creatinine, Urine 82.7 mg/dL (Normal) Range: 15.0-278.0 :24 METABOLIC PANEL, COMPREHENSIVE Comments: PATIENT WAS FASTINGPERFORMED BY: [employer] Ccpfyy0738 [facility] [id number] (04149) ALT (SGPT) 12 [iU]/L (Normal) Range: 0-32 [...] mg/dL (Abnormal) Range: 65-99 :24 LIPID PANEL (24130) Comments: PATIENT WAS FASTINGPERFORMED BY: [facility] Lmcebu7969 [facility] [id number] LDL/HDL Ratio 1.1 {ratio_units} (Normal) Range: 0.0-3.2 [...] Automated Comments: [facility] K[address]ylbx[address] [place], [place], [id number] Absolute Lymph 0.83 {X10_3/ul} (Normal) Range: 0.83-4.51 [...] (Normal) Range: 4.4-11.0 :30 Hemoglobin A1c Comments: [address] [place], [place], [phone](068) HGB A1C 6.1 % (Normal) Range: 4.2-6.3 :30 Magnesium Comments: [address] [place], [place], [phone](548) MG 1.8 mg/dL (Normal) Range: 1.8-2.4 :30 Protein+Creatinine Ratio,Urine Comments: [address] [place], [place], [phone](184) PROT:CRE RATIO 2121 {mg/g_CRE} (Abnormal) Range: 0-200 PROTEIN,UR.RAN. 164.2 mg/dL (Abnormal) UR CREAT 77.40 mg/dL (Normal) :30 Renal Profile Comments: [facility] [address] [place], [place], [phone](806) CO2 27.0 mmol/L (Normal) Range: 21.0-32.0 CL [...] 126 mg/dLsuggests DIABETES MELLITUS per A.D.A. criteria. 20-Mpb-56196:00 24 HR UR Creatinine Clearance Comments: [facility] Swfklxtlwb5052 [facility]. [place], [place], [phone] CREAT CLEARANCE 24 ml/min (Abnormal) Range: 100-200 URINE CREAT 20.6 mg/dL (Normal) EST GFR - AA 38 mL/min (Abnormal) Comments: GFR Calc EST GFR 31 mL/min (Abnormal) Comments: Non- GFR Calc SERUM CREAT 1.7 mg/dL (Abnormal) Range: 0.6-1.0 UR TOTAL VOLUME 2800 mL (Normal) UR COLLECT TIME 24.0 {HOURS} (Normal) 17-Thp-79709:00 Protein, Urine 24HR Comments: [facility] Poqahfyzwm0337 [facility] [place], [address] 24hr UR PROTEIN 1178.8 {mg/24HR} (Abnormal) URINE PROTEIN 42.1 mg/dL (Abnormal) UR TOTAL VOLUME 2800 mL (Normal) UR COLLECT TIME 24.0 {HOURS} (Normal) 8-Bsm-793660:29 Metabolic Panel, Basic Comments: PATIENT NOT FASTINGPERFORMED BY: LabCoMeadowview Psychiatric HospitalJbaqst9355 [facility] [id number] Information: [id number] (13553) Calcium, Serum 9.3 mg/dL (Normal) Range: 8.7-10.3 [...] Basic Comments: tuesday; PATIENT NOT FASTINGPERFORMED BY: LabCoMeadowview Psychiatric HospitalDygubz1349 [facility] [id number] Information: [id number] (41234) Calcium, Serum 9.0 mg/dL (Normal) Range: 8.7-10.3 [...] Glucose, Serum 149 mg/dL (Abnormal) Range: 65-99 53-Kes-336774:32 HgA1C , Office (97363) HgA1C , Office 6.2 % (Normal) Range: 4.6 - 7.1 :31 Rapid Strep Test, Office (02089) Comments: neg Rapid Strep Test, Office Negative (Normal) :06 THROAT CULTURE (47357) Comments: PATIENT NOT FASTINGPERFORMED BY: CB [facility] Phrrkf5248 [address] RoadDublin [place] [id number] Information: [id number] Result 1 RRF (Normal) Comments: Routine respiratory luis Upper Respiratory Culture Final report (Normal) :52 TSH (89241) Comments: PATIENT WAS FASTINGPERFORMED BY: CB [facility] Emyepc3030 [address] RoadDublin [place] [id number] TSH 2.190 {uIU/mL} (Normal) Range: 0.450-4.500 :52 Vitamin D Hydroxy (96065) Comments: PATIENT WAS FASTINGPERFORMED BY: CB [facility] Svnfvm4203 [address] RoadDublin [place] [id number] Vitamin D, 25-Hydroxy 43.8 ng/mL (Normal) Range: 30.0-100.0 Comments: Vitamin D deficiency has been defined by the [place] ofMedicine and an Endocrine Society practice guideline as alevel of serum 25-OH vitamin D less than 20 ng/mL (1,2).The Endocrine Society went on to further define vitamin Dinsufficiency as a level between 21 and 29 ng/mL (2).1. IOM ([place] of Medicine). 2010. Dietary reference intakes for calcium and D. [place]: The National Academies Press.2. Mira MF, Rosette [place], Tommy SWAIN, et al. Evaluation, treatment, and prevention of vitamin D deficiency: an Endocrine Society clinical practice guideline. JCEM. 2010; 96(7):1911-30. :52 LIPID PANEL (59020) Comments: PATIENT WAS FASTINGPERFORMED BY: CB [facility] Pvbwpl8283 [address] RoadDublin [place] [id number] LDL/HDL Ratio 1.3 {ratio_units} (Normal) Range: 0.0-3.2 [...] auto diff Comments: PATIENT WAS FASTINGPERFORMED BY: LabCoMeadowview Psychiatric HospitalCmwwme8802 [facility] [id number] Information: [id number] (78563) Immature Grans (Abs) 0.0 {x10E3/uL} (Normal) Range: [...] COMPREHENSIVE Comments: PATIENT WAS FASTINGPERFORMED BY: [facility]5990 [facility] [id number] ([id number]) ALT (SGPT) 19 [iU]/L (Normal) Range: 0-32 [...] (Abnormal) Range: 65-99 :08 HgA1C , Office (52403) HgA1C , Office 6.4 % (Normal) Range: 4.6 - 7.1 [id number] Creatinine Clearance Comments: PATIENT NOT FASTINGPERFORMED BY: [facility] [id number] Information: [id number] S TART Creatinine Clearance 33 mL/min (Abnormal) Range: 88-128 Comments: The above range is based on 1.73 square meter average body surfacearea. Creatinine, Ur 24hr 642.0 {mg/24_hr} (Abnormal) Range: 800.0-1800.0 Creatinine, Urine 34.7 mg/dL (Normal) Range: 15.0-278.0 eGFR If Africn Am 43 mL/min/1.73 (Abnormal) eGFR If NonAfricn Am 37 mL/min/1.73 (Abnormal) Creatinine, Serum 1.37 mg/dL (Abnormal) Range: 0.57-1.00 [id number] Protein Total, Qn, 24-Hr Comments: PATIENT NOT FASTINGPERFORMED BY: [facility] [id number] Urine Prot,24hr calculated 1309.8 {mg/24_hr} (Abnormal) Range: 30.0-150.0 Protein,Total,Urine 70.8 mg/dL (Abnormal) Range: 0.0-15.0 :01 CBC W/Diff, Automated Comments: Test performed at:[facility] [address] [place] [address] Absolute Neut 3.1 {X10_3/uL} (Normal) [...] Test performed at:[facility] [address] [place] [address] 37132 MG 2.0 mg/dL (Normal) Range: 1.8-2.4 :01 Protein+Creatinine Ratio,Urine Comments: Test performed at:[facility] [address] [place] [address]56 PROT:CRE RATIO 2232 {mg/g_CRE} (Abnormal) Range: 0-200 PROTEIN,UR.RAN. 160.3 mg/dL (Abnormal) UR CREAT 71.8 mg/dL (Normal) :01 Renal Profile Comments: Test performed at:[facility] [address] [place] [address] 03031 CO2 32.0 mmol/L (Normal) Range: 21.0-32.0 CL [...] mg/dL (Normal) Range: 70-110 :08 LIPID PANEL (24372) Comments: PATIENT WAS FASTINGPERFORMED BY: [facility] HospitalMzjvgw2605 [facility] [id number] LDL/HDL Ratio 1.0 {ratio_units} (Normal) Range: 0.0-3.2 [...] METABOLIC PANEL, Comments: PATIENT WAS FASTINGPERFORMED BY: [facility]fox[facility] HospitalMeskzh1162 [facility] [id number] Information: [id number] COMPREHENSIVE (51379) ALT (SGPT) 29 [iU]/L (Normal) Range: 0-32 [...] (Abnormal) Range: 65-99 :59 HgA1C , Office (83570) HgA1C , Office 6.5 % (Normal) Range: 4.6 - 7.1 :54 CBC W/AUTO DIFF WBC Comments: PATIENT WAS FASTINGPERFORMED BY: [facility]Co[facility] HospitalTqjgiz5417 [facility] [id number] Information: [id number] (54868) Immature Grans (Abs) 0.0 {x10E3/uL} (Normal) Range: [...] COMPREHENSIVE Comments: PATIENT WAS FASTINGPERFORMED BY: [facility] Vaghob0139 [facility] [id number]; non- emergent till apt (00129) ALT (SGPT) 13 [iU]/L (Normal) Range: 0-32 [...] mg/dL (Abnormal) Range: 65-99 :54 LIPID PANEL (60621) Comments: PATIENT WAS FASTINGPERFORMED BY: [facility]Co[facility] HospitalWdbumw2744 [facility] [id number] LDL/HDL Ratio 1.1 {ratio_units} (Normal) Range: 0.0-3.2 [...] (Normal) Range: 100-199 :29 HgA1C , Office (98288) HgA1C , Office 6.6 % (Normal) Range: 4.6 - 7.1 :12 CBC W/Diff, Automated Comments: Test performed at:[facility] T[address] [place] [address] ; handled by Dr. Santana [...] Test performed at:[facility] [address] [place] [address] 09360 MG 2.0 mg/dL (Normal) Range: 1.8-2.4 :12 Microalb:Creat Ratio,Random UR Comments: Test performed at:[facility] [address] [place] [place] [address] ; Dr. Angelo LING:CREAT 1483.0 {mg/g_CRE} (Abnormal) MICROALBUMIN,UR 918.0 mg/L (Normal) UR CREAT 61.9 mg/dL (Normal) :12 Renal Profile Comments: Test performed at:[facility] [address] [place] [place] [address] 24787 CO2 29.0 mmol/L (Normal) Range: 21.0-32.0 CL [...] 126 mg/dLsuggests DIABETES MELLITUS per A.D.A. criteria. 96-Unz-174238:20 LIPID PANEL (25667) Comments: PATIENT WAS FASTINGPERFORMED BY: [facility] HospitalZaqxcy7655 [facility] [id number] LDL/HDL Ratio 1.0 {ratio_units} (Normal) Range: 0.0-3.2 [...] Cholesterol, Total 151 mg/dL (Normal) Range: 100-199 14-Cxx-772787:20 METABOLIC PANEL, Comments: PATIENT WAS FASTINGPERFORMED BY: [facility] HospitalHnrgzm0023 [facility] [id number] Information: [id number] COMPREHENSIVE (03972) ALT (SGPT) 16 [iU]/L (Normal) Range: 0-32 [...] Glucose, Serum 148 mg/dL (Abnormal) Range: 65-99 52-Rkk-999701:21 CREATININE CLEARANCE Comments: PATIENT WAS FASTINGPERFORMED BY: [facility]6370 [facility] [id number] Information: [id number] START 04/02/14@9AM FINISH 04/03/14 6:00 AM (61637) Creatinine Clearance 42 mL/min (Abnormal) Range: 88-128 Comments: The above range is based on 1.73 square meter average body surfacearea. Creatinine, Ur 24hr 812.3 {mg/24_hr} (Normal) Range: 800.0-1800.0 Creatinine, Urine 28.5 mg/dL (Normal) Range: 15.0-278.0 eGFR If Africn Am 45 mL/min/1.73 (Abnormal) eGFR If NonAfricn Am 39 mL/min/1.73 (Abnormal) Creatinine, Serum 1.33 mg/dL (Abnormal) Range: 0.57-1.00 79-Sob-253660:21 Total Protein,24 Hour Urine Comments: PATIENT WAS FASTINGPERFORMED BY: [facility] Hospital6370 [facility] [id number] (24021) Prot,24hr calculated 1559.0 {mg/24_hr} (Abnormal) Range: 30.0-150.0 Protein,Total,Urine 54.7 mg/dL (Abnormal) Range: 0.0-15.0 :57 LIPID PANEL (62712) Comments: PATIENT WAS FASTINGPERFORMED BY: [facility] Hospital6370 [facility] [id number] LDL/HDL Ratio 1.1 {ratio_units} (Normal) Range: 0.0-3.2 [...] MANUAL DIFF Comments: PATIENT WAS FASTINGPERFORMED BY: [facility]6370 [facility] [id number] Information: [id number] (61854) Immature Grans (Abs) 0.0 {x10E3/uL} (Normal) Range: [...] PANEL, COMPREHENSIVE Comments: PATIENT WAS FASTINGPERFORMED BY: [facility]Co[facility] HospitalGlqvit7001 [facility] [id number] (04520) ALT (SGPT) 10 [iU]/L (Normal) Range: 0-32 [...] 0 Comments: Result Units: mg/dL AdultPerformed at: [facility] [address] [id number] Director: Yousuf Bernardo PhD, Phone: [phone] [phone] 37 (Abnormal) Range: 9-36 0 [...] 75.6 mg/dL (Abnormal) CREU 49.3 mg/dL (Normal) 26-Ugf-56520:21 CBC WITH MANUAL DIFF Comments: PATIENT WAS FASTINGPERFORMED BY: [facility]Co[facility] HospitalEmdmns6438 [facility] [id number] Information: [id number] (58254) Immature Grans (Abs) 0.0 {x10E3/uL} (Normal) Range: [...] 3.77-5.28 WBC 4.5 {x10E3/uL} (Normal) Range: 3.4-10.8 98-Ffn-62692:21 METABOLIC PANEL, COMPREHENSIVE Comments: PATIENT WAS FASTINGPERFORMED BY: [facility]Co[facility] HospitalTirzaa0140 [facility] [id number] (37913) ALT (SGPT) 16 [iU]/L (Normal) Range: 0-32 [...] Glucose, Serum 132 mg/dL (Abnormal) Range: 65-99 50-Iyn-793391:53 CREATININE CLEARANCE Comments: PATIENT NOT FASTINGPERFORMED BY: [facility]Co[facility] HospitalEbhiqj4458 [facility] [id number] Information: [id number] START 10/30/13@8AM F INISH 10/31/13@8AM 2650ML (99912) Creatinine Clearance 44 mL/min (Abnormal) Range: 88-128 Comments: The above range is based on 1.73 square meter average body surfacearea. Creatinine, Ur 24hr 877.2 {mg/24_hr} (Normal) Range: 800.0-1800.0 Creatinine, Urine 33.1 mg/dL (Normal) Range: 15.0-278.0 eGFR If Africn Am 44 mL/min/1.73 (Abnormal) eGFR If NonAfricn Am 38 mL/min/1.73 (Abnormal) Creatinine, Serum 1.37 mg/dL (Abnormal) Range: 0.57-1.00 00-Ymn-533365:53 Total Protein,24 Hour Urine Comments: PATIENT NOT FASTINGPERFORMED BY: [employer]70 [facility] [id number] (28826) Prot,24hr calculated 3458.3 {mg/24_hr} (Abnormal) Range: 30.0-150.0 Protein,Total,Urine 130.5 mg/dL (Abnormal) Range: 0.0-15.0 64-Ynb-178279:31 HgA1C , Office (82023) HgA1C , Office 6.4 % (Normal) Range: 4.6 - 7.1 99-Xvm-967162:27 Microscopic Examination Comments: PATIENT WAS FASTINGPERFORMED BY: [employer] [facility] [id number] Bacteria Few (Normal) Mucus Threads Present (Normal) Epithelial Cells (non renal) 0-10 {/hpf} (Normal) Range: 0 - 10 RBC 3-10 {/hpf} (Abnormal) Range: 0 - 2 WBC 6-10 {/hpf} (Abnormal) Range: 0 - 5 :32 LIPID PANEL (83835) Comments: PATIENT WAS FASTINGPERFORMED BY: [employer]70 [facility] [id number] LDL/HDL Ratio 1.0 {ratio_units} (Normal) Range: 0.0-3.2 [...] CREATININE RATIO Comments: PATIENT WAS FASTINGPERFORMED BY: [employer] [facility] [id number] (89758) AND (42816) Microalb/Creat Ratio 1998.9 {mg/g_creat} (Abnormal) Range: 0.0-30.0 Creatinine, Urine 73.4 mg/dL (Normal) Range: 15.0-278.0 Microalbumin, Urine 1467.2 ug/mL (Abnormal) Range: 0.0-17.0 :32 URINALYSIS, W/ MICRO (27077) Comments: PATIENT WAS FASTINGPERFORMED BY: [facility] HospitalCtwsvo5329 [facility] [id number] Microscopic Examination See below: (Normal) Comments: Microscopic was indicated and was performed. Nitrite, Urine Negative (Normal) Urobilinogen,Semi-Qn 0.2 mg/dL (Normal) Range: 0.0-1.9 Bilirubin Negative (Normal) Occult Blood Trace (Abnormal) Ketones Negative (Normal) Glucose Negative (Normal) Protein 3+ (Abnormal) WBC Esterase Trace (Abnormal) Appearance Clear (Normal) Urine-Color Yellow (Normal) pH 6.5 (Normal) Range: 5.0-7.5 Specific Monroe 1.015 (Normal) Range: 1.005-1.030 :32 CBC WITH MANUAL DIFF Comments: PATIENT WAS FASTINGPERFORMED BY: [facility] Hospital6370 [facility] [id number] Information: [id number] (77279) Immature Grans (Abs) 0.0 {x10E3/uL} (Normal) Range: [...] 3.77-5.28 WBC 3.7 {x10E3/uL} (Normal) Range: 3.4-10.8 88-Zgu-87728:32 METABOLIC PANEL, COMPREHENSIVE Comments: PATIENT WAS FASTINGPERFORMED BY: [facility]Co[facility] HospitalJguxor1168 [facility] [id number] (72803) ALT (SGPT) 16 [iU]/L (Normal) Range: 0-32 [...] B-12 (CYANOCOBALAMIN) Comments: PATIENT WAS FASTINGPERFORMED BY: [facility] DrummMeadowview Psychiatric HospitalPlbnwi2088 [facility] [id number] (68751) Vitamin B12 >1999 pg/mL (Abnormal) Range: 211-946 49-Upe-823357:01 HgA1C , Office (30306) HgA1C , Office 6.4 % (Normal) Range: 4.6 - 7.1 :37 METABOLIC PANEL, COMPREHENSIVE Comments: PATIENT WAS FASTINGPERFORMED BY: [employer] Detaul1936 [facility] [id number] (10608) ALT (SGPT) 12 [iU]/L (Normal) Range: 0-32 [...] (Abnormal) Range: 65-99 :37 Vitamin D Hydroxy (77839) Comments: PATIENT WAS FASTINGPERFORMED BY: [employer]6370 [place] [facility] [id number] Vitamin D, 25-Hydroxy 47.4 ng/mL (Normal) Range: 30.0-100.0 Comments: Vitamin D deficiency has been defined by the [place] [facility] and an Endocrine Society practice guideline as alevel of serum 25-OH vitamin D less than 20 ng/mL (1,2).The Endocrine Society went on to further define vitamin Dinsufficiency as a level between 21 and 29 ng/mL (2).1. IOM ([place] of Medicine). 2010. Dietary reference intakes for calcium and D. [place]: The National Academies Press.2. Mira MF, Rosette [place], Tommy SWAIN, et al. Evaluation, treatment, and prevention of vitamin D deficiency: an Endocrine Society clinical practice guideline. JCEM. 2010; 96(7):1911-30. :37 LIPID PANEL (22110) Comments: PATIENT WAS FASTINGPERFORMED BY: [employer]Austin [employer] Yijxva3277 [facility] [id number] LDL/HDL Ratio 1.2 {ratio_units} (Normal) Range: 0.0-3.2 [...] DIFF Comments: PATIENT WAS FASTINGPERFORMED BY: EVE FlightfoxM[facility] Psychiatric HospitalEcculb9592 [facility] [id number] Information: [id number] (23606) Immature Grans (Abs) 0.0 {x10E3/uL} (Normal) Range: [...] Qn, 24-Hr Comments: PATIENT NOT FASTINGPERFORMED BY: [employer] Jtnotj1034 [facility] [id number] Information: ADD [id number] AND DRAW FEE 99 6660 VOLUME 2600 164LBS 5' '3 Urine Prot,24hr calculated 920.4 {mg/24_hr} Range: 30.0-150.0 (Abnormal) Protein,Total,Urine 35.4 mg/dL Range: 0.0-15.0 (Abnormal) : Written Authorization WAR (Normal) Comments: PATIENT NOT FASTINGPERFORMED BY: LabCoM[facility] Psychiatric HospitalLacjpy8619 [facility] [id number] Comments: Written Authorization Received.Authorization received from Chiqui BRICEÑO LPN [id number] by Marleen Sharma :52 Metabolic Panel, Basic Comments: PATIENT NOT FASTINGPERFORMED BY: [facility] Dootin7882 [facility] [id number] Information: ADD [id number] AND DRAW FEE 99 6660 VOLUME 2600 164LBS 5' '3 (10071) Calcium, Serum 9.7 mg/dL (Normal) Range: 8.6-10.2 [...] mg/dL (Abnormal) Range: 65-99 :52 CREATININE CLEARANCE (86777) Comments: PATIENT NOT FASTINGPERFORMED BY: [facility]ics[facility] Hospital6370 [facility] [id number] Creatinine Clearance 46 mL/min (Abnormal) Range: 88-128 Comments: The above range is based on 1.73 square meter average body surfacearea. Creatinine, Ur 24hr 899.6 {mg/24_hr} (Normal) Range: 800.0-1800.0 Creatinine, Urine 34.6 mg/dL (Normal) Range: 15.0-278.0 :52 24 hour urine for Protein Comments: PATIENT NOT FASTINGPERFORMED BY: [facility]6370 [facility] [id number] (71091) Microalb/Creat Ratio 695.4 {mg/g_creat} (Abnormal) Range: 0.0-30.0 Microalbumin, Urine 240.6 ug/mL (Abnormal) Range: 0.0-17.0 :13 HgA1C , Office (96909) HgA1C , Office 6.3 % (Normal) Range: 4.6 - 7.1 :01 Blood Glucose , Office (37278) Blood Glucose , Office 162 (Normal) 34-Jjt-730993:02 Microscopic Examination Comments: PATIENT NOT FASTINGPERFORMED BY: LabAsc[facility] Hospital6370 [facility] [id number] Bacteria Few (Normal) Mucus Threads Present (Normal) [...] Hebert M.D.October 19, 2012 at 2:42:14 PM [id number] Signed GP/GP If you are the referring physician and would like to consult [facility] theradiologist who provided this interpretation, please contact Yasmany Pond at [phone]. If this radiologist is unavailable, youwill be directed to another radiologist to assist. If y ou are a patient with a question regarding this report, pleasecontactyour referring physician directly. Professional Interpretation Provided By: [employer], Phone , These documents contain legally protected [...] 10/19/12 1444 Sign by: Misael Hebert MD 13-Xtl-635182:59 TSH (99785) Comments: PATIENT WAS FASTINGPERFORMED BY: [facility] [id number] TSH 1.230 {uIU/mL} (Normal) Range: 0.450-4.500 92-Xwt-001729:59 LIPID PANEL (13977) Comments: PATIENT WAS FASTINGPERFORMED BY: [employer]70 [facility] [id number] LDL/HDL Ratio 0.5 {ratio_units} (Normal) Range: 0.0-3.2 LDL Cholesterol Calc 47 mg/dL (Normal) Range: 0-99 Cholesterol, Total 149 mg/dL (Normal) Range: 100-199 HDL Cholesterol 91 mg/dL (Normal) Comments: According to ATP-III Guidelines, HDL-C >59 mg/dL is considered anegative risk factor for CHD. Triglycerides 57 mg/dL (Normal) Range: 0-149 VLDL Cholesterol Cesar 11 mg/dL (Normal) Range: 5-40 87-Vwv-043402:02 URINALYSIS, W/ MICRO Comments: PATIENT NOT FASTINGPERFORMED BY: [employer]70 [employer] [facility] [id number] Information: [id number] (33519) Microscopic Examination See below: (Normal) Nitrite, Urine Negative (Normal) Bilirubin Negative (Normal) Urobilinogen,Semi-Qn 0.2 mg/dL (Normal) Range: 0.0-1.9 Occult Blood Negative (Normal) Ketones Negative (Normal) Glucose Negative (Normal) Protein 3+ (Abnormal) WBC Esterase Negative (Normal) Appearance Clear (Normal) Urine-Color Yellow (Normal) pH 5.5 (Normal) Range: 5.0-7.5 Specific Monroe 1.015 (Normal) Range: 1.005-1.030 02-Gzi-943500:59 CBC WITH MANUAL DIFF Comments: PATIENT WAS FASTINGPERFORMED BY: [facility]Co[facility] HospitalPrhpik5018 [facility] [id number] Information: [id number] (86050) Immature Grans (Abs) 0.0 {x10E3/uL} (Normal) [...] 3.77-5.28 WBC 4.8 {x10E3/uL} (Normal) Range: 3.4-10.8 37-Rep-236554:59 METABOLIC PANEL, COMPREHENSIVE Comments: PATIENT WAS FASTINGPERFORMED BY: [facility]CoM[facility] Psychiatric HospitalVxmuyu5496 [facility] [id number] (91694) ALT (SGPT) 14 [iU]/L (Normal) Range: 0-32 [...] Glucose, Serum 104 mg/dL (Abnormal) Range: 65-99 0-Mcb-703524:37 HgA1C , Office (31421) HgA1C , Office 6.0 % (Normal) Range: 4.6 - 7.1 5-Vun-211885:31 CRE CREAT 1.3 mg/dL (Abnormal) Range: 0.6-1.0 [...] Galan M.D.August 09, 2012 at 2:38:03 PM [id number] Signed PV/PV If you are the referring physician and would like to consult with theradiologist who provided this interpretation, please contact Donna Burnett M.D. at [phone]. If this radiologist is unavailable, youwillbe directed to another radiologist to assist. If you are a patient with a question regarding this report, pleasecontactyour referring physician evelyne cowan. Professional Interpretation Provided By: [employer], Phone , These documents contain legally protected [...] 08/09/12 1441 Sign by: Donna Martin MD 71-Twp-175090:31 CBC with manual diff Comments: PATIENT NOT FASTINGPERFORMED BY: [facility] Wktzuj7403 [facility] [id number] Information: [id number] (75383) Immature Grans (Abs) 0.0 {x10E3/uL} (Normal) Range: [...] 3.77-5.28 WBC 3.2 {x10E3/uL} (Abnormal) Range: 4.0-10.5 14-Awz-902534:31 Metabolic Panel, Comprehensive Comments: PATIENT NOT FASTINGPERFORMED BY: [facility]CoM[facility] Psychiatric HospitalRpvrlv5584 [facility] [id number] (40858) ALT (SGPT) 19 [iU]/L (Normal) Range: 0-32 [...] mg/dL (Abnormal) Range: 65-99 :31 LIPID PANEL (59025) Comments: PATIENT WAS FASTINGPERFORMED BY: [facility] [id number] LDL/HDL Ratio 0.8 {ratio_units} (Normal) Range: 0.0-3.2 [...] MANUAL DIFF Comments: PATIENT WAS FASTINGPERFORMED BY: [employer] [facility] HospitalInvia.czAlleghany Health [id number] Information: [id number] (26029) Immature Grans (Abs) 0.0 {x10E3/uL} (Normal) Range: [...] PANEL, COMPREHENSIVE Comments: PATIENT WAS FASTINGPERFORMED BY: [facility] [id number] (63799) ALT (SGPT) 22 [iU]/L (Normal) Range: 0-32 [...] (Abnormal) Range: 65-99 :45 HgA1C , Office (22778) HgA1C , Office 6.1 % (Normal) Range: 4.6 - 7.1 74-Tny-817232:16 CRE CREAT 1.1 mg/dL (Abnormal) Range: 0.6-1.0 [...] Galan M.D.February 02, 2012 at 5:10:18 PM [id number] Signed PV/PV If you are the referring physician and w sarahild like to consult with theradiologist who provided this interpretation, please contact Donna Burnett M.D. at [phone]. If this radiologist is unavailable, youwillbe directed to another radiol ogist to assist. If you are a patient with a question regarding this report, pleasecontactyour referring physician directly. Professional Interpretation Provided By: [employer], Phone ,Fa x [phone] These documents contain legally protected and confidential [...] 02/02/121713 S ign by: Donna Martin MD 26-Bxh-685492:16 DEXA BONE DENSITY STUDY (HP) Radiology Report [...] Coronel M.D.January 20, 2012 at 2:43:46 PM [id number] Signed KERA/KERA If you ar e the [...] 01/20/12 1447 Sign by: David Coronel MD 79-Mtr-723896:15 BILAT SCRN DIGITAL & CAD Radiology Report [...] Coronel M.D.January 20, 2012 at 1:20:11 PM [id number] Signed KERA/KERA If you are the referring physician and would like to consult with theradiologist who provided this interpretation, please contact Yasmany Parnell at . If this radiologist is unavailable,youwill be directed to another radiologist to assist. If you are a patient with a question regarding this report, pleasecontactyour referring physician directly. Professional Interpretation Provided By: [employer], Phone , These documents contain legally protected [...] 01/20/12 1324 Sign by: David Coronel MD 8-Dgq-740026:56 PELVIC (NON ) Radiology Report See Note [...] Vuong M.D.January 10, 2012 at 8:39:09 PM [id number] Signed JOHNNY/JOHNNY If you are the referring physician and would like to consult with theradiologist who provided this inte rpretation, please contact Radha Vuong M.D. at [phone]. If this radiologist is unavailable, you will bedirected to another radiologist to assist. If you are a patient with a question regarding this r eport, pleasecontactyour referring physician directly. Professional Interpretation Provided By: [employer], Phone , PROCEDURE: ULTRASOUND OF THE FEMALE [...] Vuong M.D.January 10, 2012 at 8:40:07 PM [id number] Signed JOHNNY/JOHNNY If you are the referring physician and would like to consult with theradiologist who provided this interpretation, please contact Radha Vuong M.D. at [phone]. If this radiologist is unavailable, you will bedirected to another radiologist to assist. If you are a patient with a question regarding this report, pleasecontactyour referring ysician directly. Professional Interpretation Provided By: [employer], Phone , These documents contain legally protected [...] Dictated on 01/10/12 1309 by TATIANA VUONG MDN[facility] ribed on 01/11/12 1113 by ITS IMPORTSign by RADHA VUONG MD on 01/11/12 1114 Sign by: RADHA UVONG MD 53-Lpl-96701:35 MICROALBUMIN: CREATININE RATIO Comments: PATIENT WAS FASTINGPERFORMED BY: [employer]6370 [facility] [id number] (08735) AND (08731) Microalb/Creat Ratio 829.4 {mg/g_creat} (Abnormal) Range: 0.0-30.0 Microalbumin, Urine 437.1 ug/mL (Abnormal) Range: 0.0-17.0 Creatinine, Urine 52.7 mg/dL (Normal) Range: 15.0-278.0 :35 CBC WITH MANUAL DIFF Comments: PATIENT WAS FASTINGPERFORMED BY: [employer] [facility]in6370 [facility] [id number] Information: [id number] (88892) Immature Grans (Abs) 0.0 {x10E3/uL} (Normal) Range: [...] 3.77-5.28 WBC 3.7 {x10E3/uL} (Abnormal) Range: 4.0-10.5 86-Pkt-53451:35 METABOLIC PANEL, COMPREHENSIVE Comments: PATIENT WAS FASTINGPERFORMED BY: LabCoM[facility]owview Psychiatric HospitalDybizo6923 [facility] [id number] (50770) ALT (SGPT) 15 [iU]/L (Normal) Range: 0-32 [...] mg/dL (Abnormal) Range: 65-99 :35 LIPID PANEL (21589) Comments: PATIENT WAS FASTINGPERFORMED BY: [facility] [id number] LDL/HDL Ratio 0.9 {ratio_units} (Normal) Range: 0.0-3.2 LDL Cholesterol Calc 72 mg/dL (Normal) Range: 0-99 HDL Cholesterol 83 mg/dL (Normal) Comments: According to ATP-III Guidelines, HDL-C >59 mg/dL is considered anegative risk factor for CHD. VLDL Cholesterol Cesar 18 mg/dL (Normal) Range: 5-40 Triglycerides 90 mg/dL (Normal) Range: 0-149 Cholesterol, Total 173 mg/dL (Normal) Range: 100-199 :15 HgA1C , Office (56688) HgA1C , Office 6.2 % (Normal) Range: 4.6 - 7.1 :30 CBC WITH MANUAL DIFF Comments: PATIENT WAS FASTINGPERFORMED BY: Black DrummLos Alamos Medical CenterVzulmp6171 [place] [facility] [id number] Information: [id number] (41419) Immature Grans (Abs) 0.0 {x10E3/uL} (Normal) Range: [...] 3.77-5.28 WBC 4.2 {x10E3/uL} (Normal) Range: 4.0-10.5 19-Nkw-18200:30 METABOLIC PANEL, COMPREHENSIVE Comments: PATIENT WAS FASTINGPERFORMED BY: LabCoMeadowview Psychiatric HospitalQdqleb6103 [facility] [id number] (27801) ALT (SGPT) 19 [iU]/L (Normal) Range: 0-40 [...] mg/dL (Abnormal) Range: 65-99 :30 LIPID PANEL (11573) Comments: PATIENT WAS FASTINGPERFORMED BY: [facility]CoM[facility] Psych[facility] HospitalByqqqy7311 [facility] [id number] LDL/HDL Ratio 0.9 {ratio_units} (Normal) Range: 0.0-3.2 [...] note reference interval change :48 Rapid Flu (31482 x 2) Influenza A Ag negative (Normal) [...] redmond M.D.November 05, 2011 at 3:25:08 PM [id number] Signed GP/GP If you are the referring physician and would like to consult with theradiologist who provided this interpretation, please contact Yasmany Pond at [phone]. If this radiologist is unavailable, youwill be directed to another radiologist to assist. If you are a patient with a question regarding this report, ple asecontactyour referring physician directly. Professional Interpretation Provided By: [employer], Phone , These documents contain legally protected [...] redmond M.D.November 05, 2011 at 3:25:08 PM [id number] Signed GP/GP If you are the referring physician and would like to consult with theradiologist who provided this interpretation, please contact Yasmany Pond at [phone]. If this radiologist is unavailable, youwill be directed to another radiologist to assist. If you are a patient with a question regarding this report, ple asecontactyour referring physician directly. Professional Interpretation Provided By: [employer], Phone , These documents contain legally protected [...] on 11/05/111551 Sign by: Misael Hebert MD 53-Yix-894780:20 METABOLIC PANEL, Comments: PATIENT WAS FASTINGPERFORMED BY: [facility]CoM[facility] Psych[facility] HospitalLxnlrt5647 [facility] [id number] Information: [id number],2ND ORDER NO DRAW F COMPREHENSIVE (15833) ALT (SGPT) 31 [iU]/L (Normal) Range: 0-40 [...] Creatinine Clearance Comments: PATIENT WAS FASTINGPERFORMED BY: FlightfoxMeadowview Psychiatric HospitalZbepmk6876 [facility] [id number] Information: 10/30@6AM 10/31@730AM Creatinine Clearance 58 mL/min [...] Qn, 24-Hr Comments: PATIENT WAS FASTINGPERFORMED BY: [facility]foxM[facility] Psych[facility] HospitalFsbilc2568 [facility] [id number] Urine Prot,24hr calculated 1023.8 {mg/24_hr} (Abnormal) Range: 30.0-150.0 Protein,Total,Urine 52.5 mg/dL (Abnormal) Range: 0.0-15.0 :04 HgA1C , Office (50043) HgA1C , Office 6.1 % (Normal) Range: [...] regarding this repor t, please call our 56T7wzeblat line @ Dictated on 07/27/11 1040 by GAYE PEREZ MDscribed on 07/28/111224 by ITS IMPORTSign by GAYE PEREZ MD on 07/28/111224 Sign by: GAYE PEREZ MD :54 Vitamin D Hydroxy (85232) Comments: PATIENT WAS FASTINGPERFORMED BY: [employer]6370 [facility] [id number] Vitamin D, 25-Hydroxy 48.8 ng/mL (Normal) Range: 30.0-100.0 Comments: Vitamin D deficiency has been defined by the [place] of[place]icine and an Endocrine Society practice guideline as alevel of serum 25-OH vitamin D less than 20 ng/mL (1,2).The Endocrine Society went on to further define vitamin Dinsufficiency as a level between 21 and 29 ng/mL (2).1. IOM ([place] of Medicine). 2010. Dietary reference intakes for calcium and D. [place]: The National Academies Press.2. Mira MF, [place], Tommy SWAIN, et al. Evaluation, treatment, and prevention of vitamin D deficiency: an Endocrine Society clinical practice guideline. JCEM. 2010; 96(7):1911-30. :54 LIPID PANEL (22263) Comments: PATIENT WAS FASTINGPERFORMED BY: [employer]6370 [facility] [id number] LDL/HDL Ratio 1.0 {ratio_units} (Normal) Range: 0.0-3.2 [...] MANUAL DIFF Comments: PATIENT WAS FASTINGPERFORMED BY: [employer] [facility]6370 [place] [facility] [id number] Information: ADD [id number] AND DRAW FEE [id number] (82506) Immature Grans (Abs) 0.0 {x10E3/uL} (Normal) Range: [...] 3.77-5.28 WBC 4.3 {x10E3/uL} (Normal) Range: 4.0-10.5 88-Gup-11836:54 METABOLIC PANEL, COMPREHENSIVE Comments: PATIENT WAS FASTINGPERFORMED BY: [facility]Co[facility] HospitalDpvzvs7959 [facility] [id number] (89948) ALT (SGPT) 48 [iU]/L (Abnormal) Range: 0-40 [...] (Abnormal) Range: 65-99 :18 HgA1C , Office (42215) HgA1C , Office 6.1 % (Normal) Range: 4.6 - 7.1 :18 Blood Glucose , Office (01053) Blood Glucose , Office 103 (Normal) 78-Axk-85479:00 ABDOMEN WITH AND W/O CONTRAST Radiology Report [...] radiologist regarding this report, please call our 65V5lnqjjad line @ Dictated on 03/18/11 1715 by Keaton MANN,JennieieTranscribed on 03/22/11 1401 by ITS IMPORTSign by Jeanette Hill MD on 03/22/11 1402 Sign by: Jeanette Pugh MD 80-Fpg-446951:29 SERUM CRE & GFR CREAT,SERUM 1.1 mg/dL (Abnormal) Range: 0.6-1.0 29-Jxm-44347:00 BRAIN W/WO CONTRAST Radiology Report See Note [...] seen in the right frontal white matter 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 The cortical [...] 03/02/11 173 Sign by: Donna Martin MD 09-Yrr-66268:00 UPPER EXT. JOINT ONLY(ROUTINE) Radiology Report See [...] on 03/04/11 1035 Sign by: Ankur Duncan 31-Bet-019028:08 SHOULDER,MIN 2 VIEWS Radiology Report See Note [...] on 02/17/11 1205 by ITS IMPORTSign by Jenaette Pugh MD on 02/17/11 120 Sign by: [...] 02/01/11 1021 Sign by: ALEJANDRO DRUMMOND DO 71-Jwi-569165:57 SINUS/FACIAL BONE Radiology Report See Note (Normal) [...] 01/19/11 1448 Sign by: Misael Hebert MD 93-Abo-54138:00 BRAIN W/WO CONTRAST Radiology Report See Note [...] addition, there is a small region of yqwnmohlvT0ptfnhxwjfv along the anterior margin of the mass, [...] on 01/19/111650 Sign by: GAYE PEREZ MD 97-Dlm-98295:00 BRAIN/HEAD W/WO CONTRAST Radiology Report See Note [...] 01/19/11 1447 Sign by: Misael Hebert MD 22-Gbu-141902:08 BILAT SCRN DIGITAL & CAD Radiology Report [...] CREATININE RATIO Comments: PATIENT NOT FASTINGPERFORMED BY: [facility]CoM[facility] HospitalTvuglh4251 [facility] [id number] (63883) AND (13819) Microalb/Creat Ratio 1028.4 {mg/g_creat} (Abnormal) Range: 0.0-30.0 Microalbumin, Urine 1341.0 ug/mL (Abnormal) Range: 0.0-17.0 Creatinine, Urine 130.4 mg/dL (Normal) Range: 15.0-278.0 :20 CBC WITH MANUAL DIFF (25884) Comments: PATIENT NOT FASTINGPERFORMED BY: [facility]Co[facility] HospitalUbrlgp2739 [facility] [id number] Immature Grans (Abs) 0.0 {x10E3/uL} (Normal) Range: [...] {x10E3/uL} (Normal) Range: 4.0-10.5 :20 LIPID PANEL (57823) Comments: PATIENT NOT FASTINGPERFORMED BY: [facility]6370 [facility] [id number] LDL/HDL Ratio 0.9 {ratio_units} (Normal) Range: 0.0-3.2 [...] PANEL, COMPREHENSIVE Comments: PATIENT NOT FASTINGPERFORMED BY: [facility]6370 [facility] [id number] (47378) ALT (SGPT) 28 [iU]/L (Normal) Range: 0-40 [...] (Abnormal) Range: 65-99 :39 HgA1C , Office (03396) HgA1C , Office 6.5 % (Normal) Range: 4.6 - 7.1 :39 Blood Glucose , Office (78385) Blood Glucose , Office 128 (Normal) :19 CBC With Differential/Platelet Comments: PATIENT WAS FASTINGPERFORMED BY: [facility] Imwcnh8845 [facility] [id number] Immature Grans (Abs) 0.0 {x10E3/uL} (Normal) Range: [...] 3.80-5.10 WBC 5.6 {x10E3/uL} (Normal) Range: 4.0-10.5 6-Ccw-307373:19 Comp. Metabolic Panel (14) Comments: PATIENT WAS FASTINGPERFORMED BY: [facility]Co[facility] Psych[facility] HospitalFyibzl2073 [facility] [id number]; appt 01/11/11 ALT (SGPT) 18 [iU]/L (Normal) [...] Glucose, Serum 113 mg/dL (Abnormal) Range: 65-99 1-Ctl-574836:19 Lipid Panel With LDL/HDL Comments: PATIENT WAS FASTINGPERFORMED BY: [employer]6370 [facility] [id number] Ratio LDL/HDL Ratio 1.0 {ratio_units} Range: 0.0-3.2 [...] 0.800 {uIU/mL} Comments: PATIENT WAS FASTINGPERFORMED BY: [facility] Jgktsb1230 [facility] [id number] 2:19 (Normal) Range: 0.450-4.500 Vitamin D, 25-Hydroxy 44.0 ng/mL (Normal) Comments: PATIENT WAS FASTINGPERFORMED BY: [facility] Sqvqfz0312 [facility] [id number] 2:19 Range: 32.0-100.0 Comments: Effective February 22, 2011 Vitamin D, 25-Hydroxy reference intervals will be changing to 30-100. .Recent studies consider the lower li sandra of 32.0 ng/mL to be athreshold for optimal health.Otf HAYES. J Nutr. 2004;135(2):317-22. 91-Pry-661304:54 HgA1C , Office (05139) HgA1C , Office 6.6 % (Normal) Range: 4.6 - 7.1 :54 Blood Glucose , Office (98709) Blood Glucose , Office 134 (Normal) :40 Creatinine Clearance Comments: PERFORMED BY: [employer] Ppytzt6289 [facility] [id number] Information: 10/07@7AM 10/08@3AM Creatinine Clearance 56 mL/min [...] Protein Total, Qn, 24-Hr Comments: PERFORMED BY: [employer] Uqiadm7439 [facility]byEMKineticsAllegh[facility] [id number] Urine Prot,24hr calculated 610.5 {mg/24_hr} (Abnormal) Range: 30.0-150.0 Protein,Total,Urine 40.7 mg/dL (Abnormal) Range: 0.0-15.0 :46 Vitamin D Hydroxy (19905) Comments: PATIENT WAS FASTINGPERFORMED BY: [employer] Jwyahx4630 [facility] [id number] Vitamin D, 25-Hydroxy 36.5 ng/mL (Normal) Range: 32.0-100.0 Comments: Recent studies consider the lower limit of 32.0 ng/mL to be athreshold for optimal health.Otf HAYES. J Nutr. 2004;135(2):317-22. :46 METABOLIC PANEL, COMPREHENSIVE Comments: PATIENT WAS FASTINGPERFORMED BY: [employer] Detamv7800 [facility] [id number] (63955) ALT (SGPT) 34 [iU]/L (Normal) Range: 0-40 [...] Glucose, Serum 116 mg/dL (Abnormal) Range: 65-99 0-Fqa-927119:46 LIPID PANEL (37673) Comments: PATIENT WAS FASTINGPERFORMED BY: [facility]Co[facility] HospitalOydjrx4357 [facility] [id number] LDL Cholesterol Calc 85 mg/dL (Normal) Range: 0-99 LDL/HDL Ratio 1.2 {ratio_units} (Normal) Range: 0.0-3.2 VLDL Cholesterol Cesar 28 mg/dL (Normal) Range: 5-40 HDL Cholesterol 69 mg/dL (Normal) Comments: According to ATP-III Guidelines, HDL-C >59 mg/dL is considered anegative risk factor for CHD. Cholesterol, Total 182 mg/dL (Normal) Range: 100-199 Triglycerides 141 mg/dL (Normal) Range: 0-149 5-Srf-526042:46 CBC WITH MANUAL DIFF Comments: PATIENT WAS FASTINGPERFORMED BY: [facility] Xgasse3934 [facility] [id number] Information: [id number]; appt 10/12/10 (22546) Immature Grans (Abs) 0.0 {x10E3/uL} (Normal) Range: [...] (Normal) Range: 4.0-10.5 :07 HgA1C , Office (89002) HgA1C , Office 6.6 % (Normal) Range: 4.6 - 7.1 :07 Blood Glucose , Office (35229) Blood Glucose , Office 114 (Normal) 89-Ame-643101:00 Creatinine Clearance Comments: PERFORMED BY: [employer] [facility] [id number] Information: 12/31@8AM 01/01@4AM Creatinine Clearance 48 mL/min [...] Creatinine, Serum 1.20 mg/dL (Abnormal) Range: 0.57-1.00 87-Gir-827386:00 Protein Total, Qn, 24-Hr Comments: PERFORMED BY: FlightfoxMeadowview Psychiatric HospitalHnzain3901 [facility] [id number] Urine Prot,24hr calculated 1070.6 {mg/24_hr} (Abnormal) Range: 30.0-150.0 Protein,Total,Urine 79.3 mg/dL (Abnormal) Range: 0.0-15.0 15-Vno-436035:48 BILAT SCRN DIGITAL & CAD Radiology Report See Note (Normal) Comments: Exam Number: [id number] MAMMOGRAPHY - BILATERAL SCREENING INDICATION:Routine annual screening [...] of attaching a ResultCode to this exam.ADDENDUM: [id number] HPBI/MDS Reported By: MISAEL HEBERT 11-Hxh-307277:48 DEXA BONE DENSITY STUDY (HP) Radiology Report See Note (Normal) Comments: Exam Number: [id number] CLINICAL:This is a 69-year-old female patient with postmenopausal screening. EXAMINATION:DUAL ENERGY X-RAY ABSORPTIOMETRY / DEXA. TECHNIQUE:Bone Density Measurements (BMD) of lumb ar spine and bilateral hipswere obtained using a [employer] scanner.. COMPARISON:None. FINDINGS: Lumbar Spine (L1-L4): g/cm2 [...] Osteoporosis Foundation http://www.nof.org Reported By: MISAEL HEBERT 70-Hqb-203712:29 HgA1C , Office (22837) HgA1C , Office 6.5 % (Normal) Range: 4.6 - 7.1 76-Pqs-772048:29 Blood Glucose , Office (50932) Blood Glucose , Office 109 (Normal) 85-Nhz-61357:05 CBC With Differential/Platelet Comments: PATIENT WAS FASTINGPERFORMED BY: [facility] Lsslsw8913 [facility] [id number] Immature Grans (Abs) 0.0 {x10E3/uL} (Normal) Range: [...] 3.80-5.10 WBC 3.9 {x10E3/uL} (Abnormal) Range: 4.0-10.5 67-Llk-89201:05 Comp. Metabolic Panel (14) Comments: PATIENT WAS FASTINGPERFORMED BY: [facility] Oqxwmm9184 [facility] [id number] ALT (SGPT) 20 [iU]/L (Normal) Range: 0-40 [...] With LDL/HDL Comments: PATIENT WAS FASTINGPERFORMED BY: [employer]70 [facility] [id number] Ratio HDL Cholesterol 54 mg/dL (Normal) Comments: [...] ng/mL (Normal) Comments: PATIENT WAS FASTINGPERFORMED BY: [facility] Pqhile9494 [facility] [id number] :05 Range: 32.0-100.0 Comments: Recent studies consider the lower limit of 32.0 ng/mL to be athreshold for optimal health.Otf HAYES. J Nutr. 2004;135(2):317-22. :41 SPLEEN (HP) Radiology Report See Note (Normal) Comments: Exam Number: [id number] ULTRASOUND OF THE SPLEEN A goal directed [...] Protein, 0.5 mg/L (Normal) Comments: PERFORMED BY: [employer] Zzgivl4424 [facility] [id number] 10:54 Quant Range: 0.0-4.9 17-Jun-2009 Hemoglobin A1c 6.3 % (Abnormal) Comments: PERFORMED BY: [employer] Snanoq5919 [facility] [id number] 10:54 Range: 4.8-5.6 Comments: Increased risk for diabetes: 5.7 - 6.4Diabetes: >6.4Glycemic control for adults with diabetes: <7.0.Please note reference interval change 17-Jun-2009 Sedimentation 4 mm/h (Normal) Comments: PERFORMED BY: [employer] [facility] [id number] 10:54 Rate-Westergren Range: 0-30 17-Jun-2009 Vitamin B12 1372 pg/mL Comments: PERFORMED BY: [employer] [facility] [id number] 10:54 (Abnormal) Range: 211-911 Comments: Effective July 14, 2009, Vitamin B12 will bechanging to the [place] ECLIA methodology. Thereference interval will be changing to:211 - 946 pg/mL 17-Jun-2009 Vitamin D, 25-Hydroxy 37.7 ng/mL Comments: PERFORMED BY: [employer] Zqojbx1100 [facility] [id number] 10:54 (Normal) Range: 32.0-100.0 Comments: Recent studies consider the lower limit of 32.0 ng/mL to be athreshold for optimal health.Otf HAYES. J Nutr. 2004;135(2):317-22. 57-Nmn-903627:34 Vitamin D Hydroxy Comments: PATIENT NOT FASTINGPERFORMED BY: [employer] Kepylu9179 [facility] [id number] Information: [id number],2ND ORDER NO DRAW F EE (52729) Vitamin D, 25-Hydroxy 48.5 ng/mL (Normal) Range: 30.0-100.0 Comments: Vitamin D deficiency has been defined by the [place] of[place]icine and an Endocrine Society practice guideline as alevel of serum 25-OH vitamin D less than 20 ng/mL (1,2).The Endocrine Society went on to further define vitamin Dinsufficiency as a level between 21 and 29 ng/mL (2).1. IOM ([place] of Medicine). 2010. Dietary reference intakes for calcium and D. [place]: The National Academies Press.2. Mira MF, Rosette LOPEZ, Tommy SWAIN, et al. Evaluation, treatment, and prevention of vitamin D deficiency: an Endocrine Society clinical practice guideline. JCEM. 2010; 96(7):1911-30. :50 HgA1C , Office (52380) HgA1C , Office 6.7 % (Normal) Range: 4.6 - 7.1 :50 Blood Glucose , Office (90284) Blood Glucose , Office 117 (Normal) 38-Daq-004838:12 CBC With Differential/Platelet Comments: PERFORMED BY: [facility]CoM[facility] Psych[facility] HospitalMklqxj9973 [facility] [id number] Information: 06/10@6AM3/10@330AM Hematology Comments: Note: (Normal) Comments: [...] 3.80-5.10 WBC 3.6 {x10E3/uL} (Abnormal) Range: 4.0-10.5 63-Pwz-211998:12 Comp. Metabolic Panel (14) Comments: PERFORMED BY: [facility]6370 [facility] [id number] Alkaline Phosphatase, S 68 [iU]/L (Normal) Range: [...] Glucose, Serum 124 mg/dL (Abnormal) Range: 65-99 75-Gmx-563773:12 Creatinine Clearance Comments: PERFORMED BY: [facility] [id number] Creatinine Clearance 49 mL/min (Abnormal) Range: 88-128 Comments: The above range is based on 1.73 square meter average body surfacearea. Creatinine, Ur 24hr 800.0 {mg/24_hr} (Normal) Range: 800.0-1800.0 Creatinine, Urine 40.0 mg/dL (Normal) Range: 15.0-278.0 70-Ygl-984528:12 Lipid Panel With LDL/HDL Comments: PERFORMED BY: [facility] [id number] Ratio HDL Cholesterol 61 mg/dL (Normal) Comments: According to ATP-III Guidelines, HDL-C >59 mg/dL is considered anegative risk factor for CHD. LDL Cholesterol Calc 74 mg/dL (Normal) Range: 0-99 LDL/HDL Ratio 1.2 {ratio_units} (Normal) Range: 0.0-3.2 VLDL Cholesterol Cesar 17 mg/dL (Normal) Range: 5-40 Cholesterol, Total 152 mg/dL (Normal) Range: 100-199 Triglycerides 87 mg/dL (Normal) Range: 0-149 06-Pgc-699594:12 Protein Total, Qn, 24-Hr Comments: PERFORMED BY: [facility] [id number] Urine Prot,24hr calculated 1172.0 {mg/24_hr} Range: 30.0-150.0 (Abnormal) Protein,Total,Urine 58.6 mg/dL (Abnormal) Range: 0.0-15.0 TSH 1.280 {uIU/mL} Comments: PERFORMED BY: [facility]icsCoM[facility]owview Psych[facility] HospitalTvhjdy7960 [facility] [id number] 1:12 (Normal) Range: 0.450-4.500 :58 HgA1C , Office (92910) HgA1C , Office 6.0 % (Normal) Range: 4.6 - 7.1 :58 Blood Glucose , Office (62641) Blood Glucose , Office 113 (Normal) :03 CBC With Differential/Platelet Comments: PATIENT WAS FASTINGPERFORMED BY: [facility]foxM[facility] Psych[facility] HospitalVtqcbi8060 [facility] [id number] Baso (Absolute) 0.0 {x10E3/uL} (Normal) Range: 0.0-0.2 [...] 11.7-15.0 WBC 3.2 {x10E3/uL} (Abnormal) Range: 4.0-10.5 5-Mmp-962522:03 Comp. Metabolic Panel (14) Comments: PATIENT WAS FASTINGPERFORMED BY: [facility]Co[facility] HospitalRdarxy6158 [facility] [id number] A/G Ratio 2.0 (Normal) Range: 1.1-2.5 Albumin, [...] Glucose, Serum 116 mg/dL (Abnormal) Range: 65-99 4-Zoy-347588:03 Lipid Panel With LDL/HDL Comments: PATIENT WAS FASTINGPERFORMED BY: [employer]70 [facility] [id number] Ratio Cholesterol, Total 167 mg/dL (Normal) Range: [...] ng/mL (Normal) Comments: PATIENT WAS FASTINGPERFORMED BY: [employer] [id number] :03 Range: 32.0-100.0 Comments: Recent studies consider the lower limit of 32.0 ng/mL to be athreshold for optimal health.Otf HAYES. J Nutr. 2004;135(2):317-22. 94-Fqy-086573:32 Urinalysis, Office (05071) UA - BILIRUBIN Negative (Normal) UA - BLOOD Hemolyzed Trace (Normal) UA - GLUCOSE Negative (Normal) UA - KETONES Negative mg/dL (Normal) UA - LEUKOCYTE ESTERASE Negative (Normal) UA - NITRITE Negative (Normal) UA - PH 6.5 (Normal) UA - PROTEIN 300 mg/dL (Normal) UA - SPECIFIC GRAVITY 1.020 (Normal) URINE UROBILINGN JATINDER TIMED 2 mg/dL (Normal) 0-Fty-944288:19 URINE SETH CULTURE-JATINDER COL Comments: PATIENT NOT FASTINGClinical Information: SRC:UR ADD [id number] PERFORMED BY: [employer]70 [facility] [id number] COUNT (60087) Result 1 ECV (Normal) Comments: Escherichia coli, [...] report (Normal) Culture,Comprehensiv e 09-Jan-20098:17 Urinalysis, Office (92953) UA - BILIRUBIN Negative (Normal) UA - BLOOD Hemolyzed Large (Normal) UA - GLUCOSE Negative (Normal) UA - KETONES Negative mg/dL (Normal) UA - LEUKOCYTE ESTERASE Moderate (Normal) UA - NITRITE Negative (Normal) UA - PH 7.0 (Normal) UA - PROTEIN 300 mg/dL (Normal) UA - SPECIFIC GRAVITY 1.020 (Normal) URINE UROBILINGN JATINDER TIMED 2 mg/dL (Normal) 5-Isv-888357:05 Comp. Metabolic Panel (14) Comments: PATIENT WAS FASTINGPERFORMED BY: [facility]CoM[facility]view Psychiatric HospitalZchcil2979 [facility] [id number] A/G Ratio 1.7 (Normal) Range: 1.1-2.5 Albumin, [...] Panel (7) Comments: PATIENT WAS FASTINGPERFORMED BY: [employer] [facility] [id number] Bilirubin, Direct 0.12 mg/dL (Normal) Range: 0.00-0.40 :05 Lipid Panel With LDL/HDL Comments: PATIENT WAS FASTINGPERFORMED BY: [employer] [facility] [id number] Ratio Cholesterol, Total 170 mg/dL (Normal) Range: [...] mg/dL (Normal) Comments: PATIENT WAS FASTINGPERFORMED BY: [employer] [facility] [id number] :05 Range: 2.5-4.5 PTH, Intact 19 pg/mL (Normal) Comments: PATIENT WAS FASTINGPERFORMED BY: [employer]6370 [facility] [id number] :05 Range: 15-65 Vitamin D, 25-Hydroxy 38.9 ng/mL (Normal) Comments: PATIENT WAS FASTINGPERFORMED BY: [facility]6370 [facility] [id number] :05 Range: 32.0-100.0 Comments: Recent studies consider the lower limit of 32.0 ng/mL to be athreshold for optimal health.Otf HAYES. J Nutr. 2004;135(2):317-22. :40 HgA1C , Office (28124) HgA1C , Office 6.0 % (Normal) Range: 4.6 - 7.1 :40 Blood Glucose , Office (49780) Blood Glucose , Office 109 (Normal) :42 CBC With Differential/Platelet Comments: PATIENT WAS FASTINGPERFORMED BY: [facility]6370 [facility] [id number] Baso (Absolute) 0.0 {x10E3/uL} (Normal) Range: 0.0-0.2 [...] 11.7-15.0 WBC 4.2 {x10E3/uL} (Normal) Range: 4.0-10.5 60-Yxa-655532:42 Comp. Metabolic Panel (14) Comments: PATIENT WAS FASTINGPERFORMED BY: [facility]CoM[facility]view Psychiatric HospitalWcobou0969 [facility] [id number] A/G Ratio 1.6 (Normal) Range: 1.1-2.5 Albumin, [...] Sodium, Serum 140 mmol/L (Normal) Range: 135-145 6-Ugb-685208:09 FECAL OCCULT HGB ASSAY, QUAL, 1-3 SIMULTANEOUS DETERMINATIONS (92727) FECAL OCCULT HGB ASSAY, QUAL, 1-3 SIMULTANEOU neg (Normal) :42 Microscopic Examination Comments: PATIENT WAS FASTINGPERFORMED BY: [facility] [id number] Bacteria None seen (Normal) Cast Type Hyaline casts (Normal) Casts Present {/lpf} (Abnormal) Epithelial Cells (non renal) 0-10 {/hpf} (Normal) Range: 0 - 10 Mucus Threads Present (Normal) RBC 0-3 {/hpf} (Normal) Range: 0 - 3 WBC 0-5 {/hpf} (Normal) Range: 0 - 5 :42 URINALYSIS W/O MICRO (83653) Comments: PATIENT WAS FASTINGPERFORMED BY: [facility] [id number] Appearance Clear (Normal) Bilirubin Negative (Normal) Glucose Negative (Normal) Ketones Negative (Normal) Microscopic Examination See below: (Normal) Nitrite, Urine Negative (Normal) Occult Blood Negative (Normal) pH 5.0 (Normal) Range: 5.0-7.5 Protein 1+ (Abnormal) Specific [place] 1.013 (Normal) Range: 1.005-1.030 Urine-Color Yellow (Normal) Urobilinogen,Semi-Qn 0.2 mg/dL (Normal) Range: 0.0-1.9 WBC Esterase 1+ (Abnormal) :42 MICROALBUMIN: CREATININE RATIO Comments: PATIENT WAS FASTINGPERFORMED BY: [facility] [id number] (03314) AND (93954) Creatinine, Urine 76.1 mg/dL (Normal) Range: 15.0-278.0 Microalb/Creat Ratio 292.1 {ug/mg_creat} (Abnormal) Range: 0.0-30.0 Microalbumin, Urine 222.3 ug/mL (Abnormal) Range: 0.0-17.0 :42 CBC WITH MANUAL DIFF (31338) Comments: PATIENT WAS FASTINGClinical Information: ADD DRAW FEE [id number] ADD J 31268 PERFORMED BY: [employer] [facility] [id number] Baso (Absolute) 0.0 {x10E3/uL} (Normal) Range: 0.0-0.2 [...] PANEL, COMPREHENSIVE Comments: PATIENT WAS FASTINGPERFORMED BY: [facility]CoM[facility] Psych[facility] HospitalLawcsq1085 [facility] [id number] (23488) A/G Ratio 1.8 (Normal) Range: 1.1-2.5 Albumin, [...] Sodium, Serum 141 mmol/L (Normal) Range: 135-145 1-Wcr-555474:23 HgA1C , Office (44507) HgA1C , Office 6.0 % (Normal) Range: 4.6 - 7.1 2-Gkj-344755:23 Blood Glucose , Office (33025) Blood Glucose , Office 103 (Normal) 47-Vah-075051:38 CBC WITH MANUAL DIFF (17997) Comments: PATIENT WAS FASTINGClinical Information: ADD DRAW FEE [id number] ADD J 09827 PERFORMED BY: [facility]E [facility] Losbgv0188 [facility] [id number] Baso (Absolute) 0.0 {x10E3/uL} (Normal) Range: 0.0-0.2 [...] 11.7-15.0 WBC 4.0 {x10E3/uL} (Normal) Range: 4.0-10.5 67-Wxc-172902:38 METABOLIC PANEL, COMPREHENSIVE Comments: PATIENT WAS FASTINGPERFORMED BY: [facility]icsCoMeadowview Psychiatric HospitalFdlane92[address] [place] [address] [id number] (10966) A/G Ratio 1.8 (Normal) Range: 1.1-2.5 Albumin, [...] Sodium, Serum 142 mmol/L (Normal) Range: 135-145 94-Jbq-882969:38 HEPATIC FUNCTION PANEL Comments: PATIENT WAS FASTINGPERFORMED BY: [facility] Nyuwoo4125 [facility] [id number] (46181) Bilirubin, Direct 0.08 mg/dL (Normal) Range: 0.00-0.40 60-Ajl-[id number] LIPID PANEL (95139) Comments: PATIENT WAS FASTINGPERFORMED BY: [facility] [id number] [facility] [id number] Cholesterol, Total 200 mg/dL (Abnormal) Range: 100-199 [...] (Normal) Range: 5-40 :36 HgA1C , Office (83426) HgA1C , Office 6.1 % (Normal) Range: 4.6 - 7.1 :36 Blood Glucose , Office (80550) Blood Glucose , Office 98 (Normal) :33 CBC With Differential/Platelet Comments: PATIENT WAS FASTINGClinical Information: SRC:UR PERFORMED BY: [facility] [facility] [id number] Baso (Absolute) 0.0 {x10E3/uL} (Normal) Range: 0.0-0.2 [...] 11.7-15.0 WBC 4.8 {x10E3/uL} (Normal) Range: 4.0-10.5 [id number]:33 Comp. Metabolic Panel (14) Comments: PATIENT WAS FASTINGPERFORMED BY: [id number] [id number] A/G Ratio 1.6 (Normal) Range: 1.1-2.5 Albumin, [...] Serum 92 mg/dL (Normal) Range: 65-99 If -Luxembourger 57 mL/min/1.73 Comments: Note: Persistent reduction for [...] With LDL/HDL Comments: PATIENT WAS FASTINGPERFORMED BY: [facility] HospitalZddkou5270 [facility] [id number] Ratio Cholesterol, Total 174 mg/dL (Normal) Range: [...] Urine Culture,Comprehensive Comments: PATIENT WAS FASTINGPERFORMED BY: [facility] HospitalTsgihg3040 [facility] [id number] Antimicrobial MIHEAD (Normal) Comments: S = Susceptible; [...] Enterococcus. (Normal) Urine Final report (Normal) Culture,Comprehensive 0-Cgp-666223:10 HgA1C , Office (12789) HgA1C , Office 5.9 % (Normal) Range: [...] mL (Normal) URINE PROTEIN 20.0 mg/dL (Abnormal) 39-Ttk-199741:17 Urine Culture,Comprehensive Comments: Clinical Information: SRC:UR PERFORMED BY: [facility]6370 [facility] [id number] Result 1 CNSNSS (Normal) Comments: Coagulase negative Staphylococcus species, not Staphylococcussaprophyticus.600 Colonies/mLSusceptibility or resistance of staphylococci to oxacillin predictssusceptibility or resistance to (a) other be tt-latnaqgxc-ygdpanpnuvnuzntbw such as cloxacillin and dicloxacillin, (b) combinationsof a penicillin and a beta-lactamase inhibitor, and(c) anti- staphylococcal cephalosporins. Routine testing of otherp enicillins, beta-lactam/beta-lactamase inhibitor combinations,cephems, and carbapenems is not advised by the CLSI Standards(E862-S80, 2005). S = Susceptible; I = Intermediate; R = Resistant * P = Positive; N = Negative MICS are expressed in micrograms per mL Antibiotic RSLT#1 RSLT#2 RSLT#3 RSLT#4Ciprofloxacin RGentami kristian SLevofloxacin RNitrofurantoin SOxacillin SPenicillin RRifampin STrimethoprim/Sulfa SVancomycin S Urine Final report Culture,Comprehensi (Normal) ve :53 Metabolic Panel, Basic (76033) Comments: PATIENT NOT FASTINGClinical Information: ADD DRAW FEE [id number] ADD J 67077 PERFORMED BY: [facility] Iotege9964 [facility] [id number] BUN 39 mg/dL (Abnormal) Range: 5-26 BUN/Creatinine Ratio 33 (Abnormal) Range: 8-27 Calcium, Serum 9.8 mg/dL (Normal) Range: 8.5-10.6 Carbon Dioxide, Total 22 mmol/L (Normal) Range: 20-32 Chloride, Serum 103 mmol/L (Normal) Range: 97-108 Creatinine, Serum 1.20 mg/dL (Abnormal) Range: 0.57-1.00 Glom Filt Rate, Est 45 mL/min/1.73 Range: 60-128 (Abnormal) Glucose, Serum 101 mg/dL (Abnormal) Range: 65-99 If -Luxembourger 55 mL/min/1.73 Range: 60-128 (Abnormal) Comments: Note: Persistent reduction for 3 months or more in an eGFR<60 mL/min/1.73 m2 defines CKD. Patients with eGFR values>/=60 mL/min/1.73 m2 may also have CKD if evidence of persistentproteinuria is present. Additional information may be found [email or web address].org. Potassium, Serum 5.1 mmol/L (Normal) Range: 3.5-5.2 Sodium, Serum 139 mmol/L (Normal) Range: 135-145 :09 HgA1C , Office (24824) HgA1C , Office 6.1 % (Normal) Range: 4.6 - 7.1 :09 Blood Glucose , Office (84692) Blood Glucose , Office 163 (Normal) :37 SPINE,LUMBAR (ROUTINE) Radiology Report See Note (Normal) Comments: Exam Number: [id number] MRI LUMBAR SPINE CLINICAL STATEMENTLow back pain [...] onboth sides. Reported By: MODESTA COPE M.D. 84-Ojg-122732:00 [facility] Radiology Report See Note (Normal) Comments: Exam Number: [id number] MAMMOGRAM, BILATERAL SCREENING DIGITAL AND CAD HISTORYRoutine [...] mammograms werealso examined with computer-aided detection software ([employer], [employer] Reported By: DONNA OJEDA M.D. :59 DEXA BONE DENSITY STUDY (HP) Radiology Report See Note (Normal) Comments: Exam Number: [id number] BONE DENSITOMETRY HISTORYPost menopausal. TECHNIQUE Bone densitometry [...] Report See Note (Normal) Comments: Exam Number: [id number] FIVE VIEW LUMBAR SPINE AP, lateral, both [...] By: MAIRA GARZA M.D. :19 [facility]alb[facility]Creat [facility], [facility] Comments: PATIENT NOT FASTINGPERFORMED BY: [facility]Co[facility] HospitalExmgnb1953 [facility] [id number] Creatinine, Urine 46.8 mg/dL (Normal) Microalb/Creat Ratio 712.8 {ug/mg_creat} (Abnormal) Range: 0.0-30.0 Microalbum.,U,Random 333.6 ug/mL (Abnormal) Range: 0.0-17.0 :13 Creatinine Clearance Comments: PATIENT NOT FASTINGClinical Information: HT-5'4'' WT-184 PERFORMED BY: EVE [employer] [id number] [facility] [id number] Creatinine Clearance 40 mL/min (Abnormal) Range: 88-128 Comments: The above range is based on 1.73 square meter average body surfacearea. Creatinine, Serum 1.30 mg/dL (Normal) Range: 0.50-1.50 Creatinine, Ur 24hr 754.8 {mg/24_hr} Range: 800.0-1800.0 (Abnormal) Creatinine, Urine 44.4 mg/dL (Normal) Glom Filt Rate, Est 41 mL/min (Abnormal) Range: 60-128 If -Luxembourger 50 mL/min (Abnormal) Range: 60-128 Comments: Note: Persistent reduction for 3 months or more in an eGFR<60 mL/min/1.73 m2 defines CKD. Patients with eGFR values>/=60 mL/min/1.73 m2 may also have CKD if evidence of persistentproteinuria is present. .Additional information may be found at www.kdoqi.org. :13 Protein Total, Qn, 24-Hr Comments: PATIENT NOT FASTINGPERFORMED BY: EVE [employer] [id number] [facility] [id number] Urine Protein,Total,Urine 49.0 mg/dL (Abnormal) Range: 0.0-15.0 Prt, 24hr calculated 833.0 {mg/24_hr} (Abnormal) Range: 30.0-150.0 98-Crs-728330:00 CBCD,SMEAR DIFF CELLS COUNTED 100 (Normal) EOS [...] T PROT 6.6 g/dL (Normal) Range: 6.4-8.2 71-Iyo-725996:00 D BILI 0.06 mg/dL (Normal) Range: 0.00-0.30 01-Tmu-091839:00 LIPID CHOL 175 mg/dL (Normal) Comments: <200 [...] mg/dL VLDL 12 mg/dL (Normal) Range: 5-40 28-Pjn-726163:00 TSH 0.84 {uIU/mL} (Normal) Range: 0.34-4.82 Plan [...] of skin Planned Observations Vitamin D Hydroxy (05672)Indication: Vitamin D deficiency On: :25 Request URINALYSIS, W/ MICRO (84367)Indication: Chronic kidney disease, stage 3 On: :25 Request LIPID PANEL (41319)Indication: Mixed hyperlipidemia On: : Request CBC W/AUTO DIFF WBC (10181)Indication: Chronic kidney disease, stage 3 On: :25 Request METABOLIC PANEL, COMPREHENSIVE (44504)Indication: Chronic kidney disease, stage 3 On: :25 Request HGB A1C (93264)Indication: Diabetes mellitus type II, controlled On: 13-Rva-705243:24 Request Parathyroid Hormone-related Peptide (PTH-rP) (08190)Indication: Vitamin D deficiency On: 5-Pye-677857:43 Request Comments: send results to Dr. Santana fax: [phone] VITAMIN D, 1, 25-DIHYDROXY (99974)Indication: Vitamin D deficiency On: 9-Xyd-603329:42 Request Comments: send results to Dr. Santana fax: [phone] Clostridium difficile Toxin A+B, EIA (82522)Indication: Chronic diarrhea On: 1-Kqe-234068:36 Request Vitamin D Hydroxy (25970)Indication: Osteopenia On: 5-Azz-059187:20 Request CBC W/AUTO DIFF WBC (25916)Indication: Hypertension, benign On: 6-Tjf-668244:16 Request CALCIFEDIOL (77851)Indication: Chronic kidney disease, stage 3 On: :04 Request Renal function Panel (08812)Indication: Chronic kidney disease, stage 3 On: :04 Request Magnesium (01723)Indication: Chronic kidney disease, stage 3 On: :04 Request MICROALBUMIN: CREATININE RATIO (60903) AND (43129)Indication: Chronic kidney disease, stage 3 On: :04 Request Parathyroid Hormone-related Peptide (PTH-rP) (99975)Indication: Chronic kidney disease, stage 3 On: :04 Request T4, FREE (THYROXINE) (61818)Indication: Cold feeling On: :31 Request TSH (29466)Indication: Cold feeling On: :31 Request PARATHORMONE (96639)Indication: Chronic kidney disease, stage 3 On: :18 Request Comments: copy to Dr. Santana [phone] CALCIFIDIOL (00978) VIT D 25Indication: Chronic kidney disease, stage 3 On: :16 Request Comments: copy to Dr. Santana [phone] MAGNESIUM (51600)Indication: Chronic kidney disease, stage 3 On: :15 Request Comments: copy to Dr. Santana [phone] PROTEIN/CREAT RATIO, URINE (78411)Indication: Chronic kidney disease, stage 3 On: :15 Request Comments: copy to Dr. Santana [phone] LIPID PANEL (36598)Indication: Mixed hyperlipidemia On: :21 Request CBC with auto diff (30630)Indication: Diabetes mellitus type II, controlled On: 10-Rlh-615519:20 Request METABOLIC PANEL, COMPREHENSIVE (58041)Indication: Diabetes mellitus type II, controlled On: 26-Gzf-618894:20 Request HGB A1C (30206)Indication: Diabetes mellitus type II, controlled On: 82-Qwb-135503:10 Request Vitamin D Hydroxy (64351)Indication: Osteopenia On: :08 Request TSH (THYROID STIMULATING HORMONE) (98723)Indication: Depression On: 49-Sgw-617919:06 Request LIPID PANEL (16163)Indication: Other and unspecified hyperlipidemia On: :06 Request CBC with auto diff (74426)Indication: Diabetes mellitus type II, controlled On: 04-Kvq-278224:06 Request METABOLIC PANEL, COMPREHENSIVE (49321)Indication: Diabetes mellitus type II, controlled On: 25-Lmb-897129:06 Request CREATININE CLEARANCE (14308)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 On: 2-Fzb-652354:38 Request Total Protein,24 Hour Urine (94762)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 On: 5-Suj-729139:38 Request CBC W/AUTO DIFF WBC (27848)Indication: Diabetes mellitus type II, controlled On: 42-Ajs-710394:11 Request HgA1C , Office (43765)Indication: Diabetes mellitus type II, controlled On: 95-Qoi-820071:23 Request CULTURE, SPUTUM (72054)Indication: Cough On: 48-Iud-964025:47 Request HEPATIC FUNCTION PANEL (32563)Indication: Elevated LFTs On: 10-Kbh-23636:24 Request CREATININE CLEARANCE (96975)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 On: :33 Request 24 hour urine for Protein (90828)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 On: :33 Request CBC WITH MANUAL DIFF (97778)Indication: Diabetes mellitus type II, controlled On: :29 Request METABOLIC PANEL, COMPREHENSIVE (11944)Indication: Diabetes mellitus type II, controlled On: 56-Utf-303304:29 Request LIPID PANEL (48505)Indication: Mixed hyperlipidemia On: :29 Request CREATININE CLEARANCE (27265)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 On: 3-Gvk-210220:45 Request 24 hour urine for Protein (28630)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 On: 6-Akd-893717:45 Request CREATININE CLEARANCE (44168)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 On: 81-Ova-713764:57 Request 24 hour urine for Protein (97889)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 On: 19-Qkp-451033:57 Request METABOLIC PANEL, COMPREHENSIVE (37862)Indication: Hypertension, benign On: :32 Request LIPID PANEL (83162)Indication: Mixed hyperlipidemia On: :32 Request C-REACTIVE PROTEIN (67370)Indication: Fatigue On: :24 Request SED RATE ERYTHROCYTE (06507)Indication: Headache On: :24 Request VITAMIN B-12 (CYANOCOBALAMIN) (65977)Indication: Fatigue On: :24 Request LIPID PANEL (52602)Indication: Mixed hyperlipidemia On: :41 Request CBC WITH MANUAL DIFF (19091)Indication: Hypertension, benign On: :41 Request METABOLIC PANEL, COMPREHENSIVE (17461)Indication: Hypertension, benign On: :41 Request CREATININE CLEARANCE (26398)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 On: :34 Request 24 hour urine for Protein (16493)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 On: :34 Request LIPID PANEL (71636)Indication: Mixed hyperlipidemia On: 7-Hsw-132744:22 Request HEPATIC FUNCTION PANEL (94704)Indication: Mixed hyperlipidemia On: :22 Request Vitamin D Hydroxy (81566)Indication: Hypercalcemia On: 9-Wkn-013946:22 Request PHOSPHORUS (91626)Indication: Hypercalcemia On: 1-Ima-239191:22 Request PARATHORMONE (11630)Indication: Hypercalcemia On: :22 Request METABOLIC PANEL, COMPREHENSIVE (61700)Indication: Hypercalcemia On: 0-Jnu-812569:22 Request CBC WITH MANUAL DIFF (84693)Indication: fsgs On: :58 Request LIPID PANEL (11920)Indication: Mixed hyperlipidemia On: 2-Knh-286832:58 Request METABOLIC PANEL, COMPREHENSIVE (21926)Indication: Hypertension, benign On: 2-Khd-531303:58 Request Blood Glucose , Office (27701)Indication: Diabetes mellitus type II, controlled On: 0-Faa-916435:10 Request TSH (89386)Indication: Diabetes mellitus type II, controlled On: 10-Kli-845166:51 Request METABOLIC PANEL, COMPREHENSIVE (70005)Indication: Diabetes mellitus type II, controlled On: 99-Kgf-833686:51 Request CBC WITH MANUAL DIFF (67593)Indication: Diabetes mellitus type II, controlled On: 86-Ner-946536:51 Request MICROALBUMIN: CREATININE RATIO (03861) AND (14863)Indication: Diabetes mellitus type II, controlled On: 31-Mkx-935906:51 Request HEPATIC FUNCTION PANEL (82532)Indication: Other and unspecified hyperlipidemia On: :51 Request LIPID PANEL (47766)Indication: Other and unspecified hyperlipidemia On: :51 Request HgA1C , Office (48782)Indication: Diabetes mellitus type II, controlled On: :37 Request Blood Glucose , Office (31998)Indication: Diabetes mellitus type II, controlled On: :37 Request Planned Encounters Medical; [facility] 3 Month FU - On: 22-Mar-2018 11:00 [facility] Fast DO, Chaparrita A Fast DO, Chaparrita A Planned Procedures DRAIN/INJECT MAJOR JOINT OR BURSA On: 07-Feb-2018 Intent ()By: Keri Singh MD Comments: lot no [id number] exp date 2017-12-26 DRAIN/INJECT MAJOR JOINT OR BURSA On: 31-Jan-2018 Intent ()By: Keri Singh MD Comments: Lot#[id number]:0-28-23Buobs:intra articular Site given:left knee Given By: Dr. Singh ABN signed DRAIN/INJECT MAJOR JOINT OR BURSA On: 24-Jan-2018 Intent ()By: Krei Singh MD Comments: Lot#[id number]: 3-41-30Clzog:intra artciular Site given:left knee Given By: Dr. Singh ABN signed Euflexxa Echo CompleteBy: Fast DO, Chaparrita A On: 16-Dec-2017 Intent Fast DO, Chaparrita A Flu Vaccine (Quadrivalent) 22949Np: On: 16-Dec-2017 Intent Fast DO, Chaparrita A Fast DO, Chaparrita A Comments: Lot: [id number]: 10/01/18Site: L dltd, IMDose prefilled syringegiven by: Jamie reviewed and ABN signed Kenalog Injection, 10 mgm On: 03-Oct-2017 Intent (J3301)By: Keri Singh MD Comments: lot: [id number]: 11/20site/route: L knee Cartoid DopplerBy: Fast DO, Chaparrita A On: 12-Sep-2017 Intent Fast DO, Chaparrita A Comments: november DIGITAL TOMOSYNTHESIS OF On: 12-Sep-2017 Intent BREAST (09217)By: Ambrocio OWLFF Chaparrita A Comments: due november 02 Ambrocio WOLFF Chaparrita A Kenalog Injection, 10 mgm On: 06-Jun-2017 Intent (J3301)By: Keri Singh MD Comments: bupivacacine 0.5% [id number] exp 09-20 kenalog 40 mg injected in. [id number] 07-21 MRI OF BRAIN WITH AND WITHOUT On: 06-Jun-2017 Intent CONTRAST (87083)By: Case Albrecht DOa A Fast DO, Chaparrita A ELECTROCARDIOGRAM, COMPLETE (ECG) On: 06-Jun-2017 Intent (28238)By: Ambrocio WOLFF Chaparrita A Fast Comments: ekg [...] 10-May-2017 Intent 1000 CC (Special Coverage Comments: lot:[id number]:[id number]:IV left anticub dose:1000ml given by:eliazar Araya LPN Instructions Apply. See MCM: 2048) (J7030)By: Case Albrecht DOa A Ambrocio DO, Chaparrita A Radiology - Chest- PA and LatBy: On: 05-May-2017 Intent Keri Singh MD Aerosol Treatment (89941)By: On: 05-May-2017 Intent Keri Singh MD Radiology - ChestBy: Francisco MANN, On: 05-May-2017 Intent Keri Alonzo Comments: call wet read DRAIN/INJECT MAJOR JOINT OR BURSA On: 28-Feb-2017 Intent (50443)By: Keri Singh MD Comments: 1 cc Kenelog #[id number] cc Marcaine #[id number] Kenalog Injection, 10 mgm On: 28-Feb-2017 Intent (J3301)By: Keri Singh MD ELECTROCARDIOGRAM, COMPLETE (ECG) On: 10-Jan-2017 Intent (10067)By: Chaparrita Albrecht DO Comments: ekg showed normal sinus rhythym, normal axis, no acute st/t wave changes Chaparrita WOLFF Flu Vaccine (Quadrivalent) 60429Fl: On: 27-Dec-2016 Intent SHONDA Andrade DRAIN/INJECT MAJOR JOINT OR BURSA On: 20-Aug-2016 Intent ()By: Keri Singh MD DRAIN/INJECT MAJOR JOINT OR BURSA On: 13-Aug-2016 Intent ()By: SHONDA Andrade Comments: lot: [id number]:intra articular dose:2ml given by:Dr. Francisco HUMPHREY signedER, QUALITY ASSURANCE COORDINATOR injection #3 DOPPLER ULTRASOUND OF RIGHT CAROTID On: 10-Aug-2016 Intent ARTERY (99219)By: Ambrocio WOLFF Chaparrita A Comments: end october Ambrocio DO Chaparrita A DEXA SCAN AXIAL SKELETON (19525)By: On: 10-Aug-2016 Intent Case Albrecht DOa A Fast DO, Chaparrita A Comments: end of october SCREENING DIGITAL TOMOSYNTHESIS OF On: 10-Aug-2016 Intent BREAST (17778)By: Case Albrecht DOa A Comments: end of october Fast , Chaparrita A DRAIN/INJECT MAJOR JOINT OR BURSA On: 06-Aug-2016 Intent ()By: Keri Singh MD DRAIN/INJECT INTERMED JOINT/BURSA On: 06-Aug-2016 Intent ()By: SHONDA Andrade Comments: lot:[id number]:[id number]:left knee dose:2mlgiven by:Dr. Francisco HUMPHREY signedER, QUALITY ASSURANCE COORDINATOR injection number 2 Venous Doppler - LeftBy: Ambrocio WOLFF, On: 03-Aug-2016 Intent Chaparrita A Ambrocio DO, Chaparrita A Comments: This is set up for August 05 at 11am- spoke with Rina in cv. DRAIN/INJECT INTERMED JOINT/BURSA On: 30-Jul-2016 Intent ()By: Keri Singh MD Comments: lot:[id number]:intra articular left knee dose: 2ml given by: Dr. Francisco HUMPHREY signedER, QUALITY ASSURANCE COORDINATOR injection #1 Radiology - Knee - LeftBy: Fast DO, On: 26-May-2016 Intent Chaparrita A Fast DO, Chaparrita A Flu Vaccine (Quadrivalent) 38869Pm: On: 27-Jan-2016 Intent Fast DO, Chaparrita A Fast DO, Chaparrita A Comments: Lot #:[id number] date:10/01/16mount given:0.5mlRoute: IMSite given: left deltoidGiven by: CARMELINA Hook ADMINISTRATION OF INFLUENZA VIRUS On: 27-Jan-2016 Intent VACCINE (G0008)By: Fast DO, Chaparrita A Fast DO, Chaparrita A DOPPLER ULTRASOUND OF RIGHT CAROTID On: 22-Oct-2015 Intent ARTERY (27646)By: Fast DO, Chaparrita A Fast DO, Chaparrita A MAMMOGRAM, SCREENING, BOTH BREAST On: 22-Oct-2015 Intent (44971)By: Fast DO, Chaparrita A Fast DO, Chaparrita A Ultrasound - RenalBy: Fast DO, On: 14-Jul-2015 Intent Chaparrita A Fast DO, Chaparrita A Radiology - Knee - Left - Weight On: 11-Mar-2015 Intent BearingBy: Fast DO, Chaparrita A Fast DO, Chaparrita A Radiology - Knee - Right - Weight On: 11-Mar-2015 Intent BearingBy: Fast DO, Chaparrita A Fast DO, Chaparrita A Flu Vaccine (Quadrivalent) 93550Yn: On: 11-Feb-2015 Intent Fast DO, Chaparrita A Fast DO, Chaparrita A EKG (97598)By: Fast DO, Chaparrita A On: 05-Nov-2014 Intent Fast DO, Chaparrita A Comments: ekg showed normal sinus rhythym, normal axis, no acute st/t wave changes left axis DRAIN/INJECT SMALL JOINT OR BURSA On: 07-Oct-2014 Intent ()By: Keri Singh MD MAMMOGRAM, SCREENING, BOTH BREAST On: 02-Aug-2014 Intent (58956)By: Fast DO, Chaparrita A Fast Comments: meera DO, Chaparrita A Cartoid DopplerBy: Fast DO, Chaparrita A On: 02-Aug-2014 Intent Fast DO, Chaparrita A DEXA SCAN AXIAL SKELETON (16204)By: On: 09-Apr-2014 Intent Fast DO, Chaparrita A Fast DO, Chaparrita A Prevnar 13 (41506)By: Ambrocio DO, On: 30-Jan-2014 Intent Chaparrita A Fast DO, Chaparrita A Comments: Lot:[id number]:05/20Dose:0.5Route:imSite:l armGiven By:Jarred signed FLU VAC, SPLIT, >3 YEARS, INTRAMUSC On: 16-Jan-2014 Intent (09677)By: Case Albrecht DOa A Ambrocio Comments: Lot #:[id number] date:12/2015Amount given:0.5mlRoute: IMSite given: left deltoidGiven by: CARMELINA Hook DO, Chaparrita A ADMINISTRATION OF INFLUENZA VIRUS On: 16-Jan-2014 Intent VACCINE (G0008)By: Ambrocio DO, Chaparrita A Fast DO, Chaparrita A EKG (69029)By: Fast DO, Chaparrita A On: 17-Oct-2013 Intent Fast DO, Chaparrita A Comments: ekg showed normal sinus rhythym, left axis, no acute st/t wave changes Radiology - Chest- PA and LatBy: On: 17-Sep-2013 Intent Fast DO, Chaparrita A Fast DO, Chaparrita A Aerosol Treatment (92864)By: Ambrocio On: 17-Sep-2013 Intent DO, Chaparrita A Fast DO, Chaparrita A MRI - BrainBy: Fast DO, Chaparrita A On: 22-Jul-2013 Intent Fast DO, Chaparrita A Cartoid DopplerBy: Fast DO, Chaparrita A On: 20-Jul-2013 Intent Fast DO, Chaparrita A MAMMOGRAM, SCREENING, BOTH BREASTS On: 20-Jul-2013 Intent (10309)By: Fast DO, Chaparrita A Fast DO, Chaparrita A Eprescribed prescriptions On: 20-Jul-2013 Intent (G8553)By: Fast DO, Chaparrita A Fast DO, Chaparrita A Eprescribed prescriptions On: 02-Feb-2013 Intent (G8553)By: Марина Concepcion FLU VAC, SPLIT, >3 YEARS, INTRAMUSC On: 03-Jan-2013 Intent (06472)By: Марина Concepcion Comments: Lot #:[id number] date:mount given:0.5mlRoute: IMSite given: L dltdVIS and ABN signedGiven by: CARMELINA Hook ADMINISTRATION OF INFLUENZA VIRUS On: 03-Jan-2013 Intent VACCINE (G0008)By: Марина Concepcion CT - Abdomen & Pelvis (IV Contrast On: 17-Oct-2012 Intent Needed)By: Chaparrita Albrecht DO A Ambrocio Comments: patient will be calling to set up DO, Chaparrita A Eprescribed prescriptions On: 10-Oct-2012 Intent (G8553)By: Марина Concepcion Ear Irrigation (60243)By: Roem, On: 13-Jun-2012 Intent Ivy Comments: Ear Irrigation performed on: right earAmount/color removed cerumen: light brown, small amount removedOUtcome:Pt toleratedUsed wax curettes Wax Currettes (67869)By: Rome, On: 13-Jun-2012 Intent Ivy PNEUM VAC ADLT/IMUMNOSPR, SBC/INTRM On: 13-Jun-2012 Intent (62747)By: Chaparrita Albrecht DO Comments: Lot:[id number]:09/09/13Dose:0.5mLRoute:IMSite:L armGiven By:BHUMI signed DO, Chaparrita A EKG (58340)By: Case Albrecht DOa A On: 13-Jun-2012 Intent [...] MAMMOGRAM, SCREENING, BOTH BREASTS On: 28-Dec-2011 Intent (93815)By: Ambrocio WOLFF Chaparrita A Ambrocio DO, Chaparrita A DXA, BONE DENSITY, AXIAL SKELETON On: 28-Dec-2011 Intent (20976)By: Ambrocio WOLFF Chaparrita A Fast DO, Chaparrita [...] SPLIT, >3 YEARS, INTRAMUSC On: 28-Dec-2011 Intent (46882)By: Марина Concepcion Comments: Lot #:[id number] date:mount given:0.5mlRoute: IMSite given: left deltoidGiven by: CARMELINA Hook ADMINISTRATION OF INFLUENZA VIRUS On: 28-Dec-2011 Intent VACCINE (G0008)By: Марина Concepcion Aerosol Treatment (64004)By: Ciesa On: 30-Nov-[address] - Abdomen & PelvisBy: Fast DO, On: 21-Sep-2011 Intent Chaparrita A Fast DO, Chaparrita A Comments: with special cuts through the kidney- october EKG (83967)By: Марина Concepcion On: 15-Jun-2011 Intent Comments: ekg [...] Comments: Call results to Dr. Albrecht @ [phone] as soon as resulted please. DO, Chaparrita A Eprescribed prescriptions On: 11-Jan-2011 Intent (G8553)By: Fast DO, Chaparrita A Fast DO, Chaparrita A MAMMOGRAM, SCREENING, BOTH BREASTS On: 11-Jan-2011 Intent (68617)By: Ambrocio DO, Chaparrita A Fast DO, Chaparrita A CT - Sinuses CompleteBy: Fast DO, On: 11-Jan-2011 Intent Chaparrita A Fast DO, Chaparrita A Cartoid DopplerBy: Fast DO, Chaparrita A On: 11-Jan-2011 Intent Fast DO, Chaparrita A ADMINISTRATION OF INFLUENZA VIRUS On: 11-Jan-2011 Intent VACCINE (G0008)By: Марина Concepcion FLU VAC, SPLIT, >3 YEARS, INTRAMUSC On: 11-Jan-2011 Intent (01570)By: Марина Concepcion Eprescribed prescriptions On: 12-Oct-2010 Intent (G8553)By: Ambrocio WOLFF, Chaparrita A Fast DO, Chaparrita A Renal DopplerBy: Fast DO, Chaparrita A On: 12-Oct-2010 Intent Fast DO, Chaparrita A Cartoid DopplerBy: Fast DO, Chaparrita A On: 12-Oct-2010 Intent Fast DO, Chaparrita A Comments: sept TDAP VACCINE >7 IM (79612)By: On: 13-May-2010 Intent Helena Tineo LPN Comments: Lot #[id number]-8/25/13Site-left deltoidgiven by:[facility] EKG (18581)By: Марина Concepcion On: 13-May-2010 Intent Comments: ekg showed normal sinus rhythym, normal axis, no acute st/t wave changes Aerosol Treatment (91219)By: Charlene On: 22-Dec-2009 Intent Johanna SANZ Cartoid DopplerBy: Fast DO, Chaparrita A On: 01-Dec-2009 Intent Fast DO, Chaparrita A MAMMOGRAM, SCREENING, BOTH BREASTS On: 01-Dec-2009 Intent (23731)By: Fast DO, Chaparrita A Fast DO, Chaparrita A DXA, BONE DENSITY, AXIAL SKELETON On: 01-Dec-2009 Intent (23904)By: Fast DO, Chaparrita A Fast DO, Chaparrita A Ultrasound - SpleenBy: Fast DO, On: 17-Jun-2009 Intent Chaparrita A Fast DO, Chaparrita A EKG ([id number])By: Марина Concepcion On: 10-Mar-2009 Intent Comments: ekg showed normal sinus rhythym, normal axis, no acute st/t wave changes FLU VAC, SPLIT, >3 YEARS, INTRAMUSC On: 09-Jan-2009 Intent ([id number])By: Stacy Jorge Comments: [id number] #[id number]-left deltoidDose0.5mlgiven by Marycarmen Jorge LPN ADMINISTRATION OF INFLUENZA VIRUS On: 09-Jan-2009 Intent VACCINE (G0008)By: Stacy Jorge MAMMOGRAM, SCREENING, BOTH BREASTS On: 04-Dec-2008 Intent ([id number])By: Fast DO, Chaparrita A Fast DO, Chaparrita A MAMMOGRAM, SCREENING, BOTH BREASTS On: 03-Sep-2008 Intent ([id number])By: Fast DO, Chaparrita A Fast DO, Chaparrita A FLU VAC, SPLIT, >3 YEARS, INTRAMUSC On: 16-Jan-2008 Intent ([id number])By: Janet Scherer RN Comments: Lot #: [id number] date: 09/10Amount given: 0.5 mlRoute: IMSite given: Left deltoidGiven by: Olivia Bell LPN ADMINISTRATION OF INFLUENZA VIRUS On: 16-Jan-2008 Intent VACCINE ([id number])By: Janet Scherer RN EKG ([id number])By: Fast DO, Chaparrita A On: 29-Aug-2007 Intent Fast DO, Chaparrita A Comments: done km ADMINISTRATION OF PNEUMOCOCCAL On: 29-Aug-2007 Intent VACCINE ([id number])By: Fast DO, Chaparrita A Fast DO, Chaparrita A PNEUM VAC ADLT/IMUMNOSPR, SBC/INTRM On: 29-Aug-2007 Intent ([id number])By: Fast DO, Chaparrita A Fast Comments: 0.5cc given im lt arm [id number] 02-13-08 DO, Chaparrita A DXA, BONE DENSITY, AXIAL SKELETON On: 29-Aug-2007 Intent ([id number])By: Fast DO, Chaparrita A Fast DO, Chaparrita A MAMMOGRAM, SCREENING, BOTH BREASTS On: 29-Aug-2007 Intent ([id number])By: Fast DO, Chaparrita A Fast DO, Chaparrita [...] still having issues with trying to find sahlyn- she doing lots of work trying to do self help- she went back off aricept gave her diarrhea- she has no other trouble getting lost- we discussed that most of her issues ri ght now is loniliness and that most likely a med wont help that- she is trying to meet new people and be involved in the [employer] 0 bps are good and sugar looking [...] medical issues: she has been working with [employer] and trying to work on that- she got rid of respiratory infection but was sick for weeks and was on pred so her sugar up and chol up a bit- trying to add protein shakes drink more water- she is starting back at [facility]- diarrhea resolved- we did talk about going [...] had episode where went to [facility] and she couldnt remember where she was- and happened one other time where she didnt recognize the roads- sister had alzheimer s- weight down because was sick- but coming back up- she hasnt done counseling with hospice has been thru before- she lonely- not necessarily unhappy- she doing self help she is singing with mormon- -rodriguez gars are all in low 100s-130- going to [place] for a month next monthEncounter Diagnosis: Nonsmoker, [...] Eddie and bp is good she joined [employer] sugar up bit doi ng ice cream-the bone density reviewed little thinner she not exercising routienly until just recent at [employer] and sees kidney doc next week and [...] Patient sleeps 8 hours per night. Nutrition: [facility] ed diet. The medical issues the [...] acuity (yearly). Note for Physical exam: [facility] Wellness Physical- Talk about trying [...] Meningioma (Renamed from ABNRM RESULT, FUNCTION STUDY, BRAIN/REHABILITATION DIRECTOR NEC (794.09)) [facility] [...] Meningioma (Renamed from ABNRM RESULT, FUNCTION STUDY, BRAIN/REHABILITATION DIRECTOR NEC (794.09)), Diabetes, Type II, controlled [...] Meningioma (Renamed from ABNRM RESULT, FUNCTION STUDY, BRAIN/REHABILITATION DIRECTOR NEC (794.09)), Colon Polyp [facility] [...] Meningioma (Renamed from ABNRM RESULT, FUNCTION STUDY, BRAIN/REHABILITATION DIRECTOR NEC (794.09)), OCCLUSION AND STENOSIS OF [...] Meningioma (Renamed from ABNRM RESULT, FUNCTION STUDY, BRAIN/REHABILITATION DIRECTOR NEC (794.09)), Chronic glomerulonephritis with lesion [...] Meningioma (Renamed from ABNRM RESULT, FUNCTION STUDY, BRAIN/REHABILITATION DIRECTOR NEC (794.09)), Other and unspecified hyperlipidemia [...] Meningioma (Renamed from ABNRM RESULT, FUNCTION STUDY, BRAIN/REHABILITATION DIRECTOR NEC (794.09)) [facility] [...] Meningioma (Renamed from ABNRM RESULT, FUNCTION STUDY, BRAIN/REHABILITATION DIRECTOR NEC (794.09)), Gerd (530.81), Hyperlipidemia, Unspecified [...] Meningioma (Renamed from ABNRM RESULT, FUNCTION STUDY, BRAIN/REHABILITATION DIRECTOR NEC (794.09)), Hypertension,benign(401.1), OCCLUSION AND STENOSIS [...] Meningioma (Renamed from ABNRM RESULT, FUNCTION STUDY, BRAIN/REHABILITATION DIRECTOR NEC (794.09)), Diabetes, Type II, controlled [...] Meningioma (Renamed from ABNRM RESULT, FUNCTION STUDY, BRAIN/REHABILITATION DIRECTOR NEC (794.09)), Hypertension,benign(401.1), Osteopenia (733.90), Depression [...] weight down 23 pounds- and trying joined [employer]- she feels well - she increased celexa [...] Meningioma (Renamed from ABNRM RESULT, FUNCTION STUDY, BRAIN/REHABILITATION DIRECTOR NEC (794.09)), Chronic glomerulonephritis with lesion [...] Meningioma (Renamed from ABNRM RESULT, FUNCTION STUDY, BRAIN/REHABILITATION DIRECTOR NEC (794.09)) End: 26-Jan-2011 16:53 [facility] Office Visit On: 19-Jan-2011 14:30 Encounter Diagnosis: brain tumor End: 21-Sep-2011 8:09 [facility] Phone Encounter On: 19-Jan-2011 13:41 Encounter Diagnosis: ABNRM RESULT, FUNCTION 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
--- OUTSIDE RECORDS SUMMARY | 2018-06-25 22:31 | XMS RPT_ITS | Continuity of Care Document ---
:1940 Author Organization [facility] Address [address] [place] [address] Phone Care Team Providers Name Role Phone [...] Knee pain, unspecified laterality (719.46) Comments: Valorie:lot: [id number]: 09/20site/route: L knee Status: Active Leg pain, [...] spray daily for 0 days Quantity: 1 {[place]} Refills: 0 Ordered:04-May-2016 SHONDA Andrade Start : [...] and dispense 8 ounes TOTAL mixed solutionCal [id number] if questions SPECTAZOLE, 1% (External Cream) 1 [...] days Quantity: 30 {Tablet} Refills: 0 Ordered:11-Feb-2015 Мраина Concepcion Start : 30-Aug-2014 End : 11-Feb-2015 Discontinued Comments:th[age], called to [facility] 08-30-14 rust Allergies and Adverse Reactions Name Dates Details [...] 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 2016 right Cholecystectomy Completed lumbar xtbuxs==1924 Completed Tonsillectomy Completed Date Value Details 19-Dec-2017 Echocardiogram Complete Result: Comments: See Note; NOTES: [facility] Cardiovascular Services [address] [place] [address] Echo Complete 12/19/17 0800 MR#: [id number] Acct: [id number] Name: CLARENCE ALBERT ep #: [id number] : 1940 77 From: Chuckie Cormier MD Attending Dr: Chaparrita Albrecht DO Status: REG CLI Ordering Dr: Chaparrita Albrecht DO Date: 12/19/17 Location: [facility] Sex: F C Admitted: Reason [...] Dictated: 12/19/17 0800 Date Transcribed: 12/19/17 1022 Ultrasonographer: Signed 07-Dec-2017 Carotid Duplex Ultrasound Result: Comments: See Note; NOTES: [facility] Cardiovascular Services [address] [place] [address] Carotid Duplex Ultrasound 12/06/17 0901 MR#: [id number] Acct: [id number] Name: RACHELLEAlen ANNCLARENCE Nazia Rep #: [id number] : 1940 77 From: Anurag Loya MD [...] the left vertebral artery. Procedure Carotid Duplex 16360. Exam performed in department. Interpretation Summary Mild (<50%) stenosis right extracranial internal carotid. Mild (<50%) stenosis left extracranial internal carotid. Flow within the vertebral arteries is antegrade bilaterally. __ __ Ordering Physician: Chaparrita Albrecht Performed By: Margot Benton RVT and Student 12/07/17 0809 Date Anurag Loya MD CC: Chaparrita Albrecht DO Date Dictated: 12/06/17900 Date Transcribed: 12/07/17808 Ultrasonographer: Signed 06-Dec-2017 SCREENING MAMM (CAD), BILAT Result: Comments: See Note; NOTES: [facility] Imaging Services [address] [place] [address] SCREENING MAMM (CAD), BILAT MR#: [id number] Acct: [id number] Name: CLARENCE ALBERT Rep #: [id number] : 1940 F 77 From: Misael Hebert MD PCP: Chaparrita Albrecht DO Status: REG CLI Study: SCREENING MAMM (CAD), BILAT Date of Exam: 12/06/17 Exam# [id number] Ordering Dr: Chaparrita Albrecht DO MAMM OGRAPHY [...] delay biopsy of a clinically suspicious abnormality. HY1355 Electronically Signed: Misael Hebert MD at 15:31 EDT Tel [phone], Se rvice support , CC: Chaparrita Albrecht DO Ultrasonographer: Signed 10-Jun-2017 Brain W/WO Contrast Result: Comments: See Note; NOTES: [facility] Imaging Services [address] [place] [address] Brain W/WO Contrast MR#: [id number] Acct: [id number] Name: CLARENCE ALBERT Rep #: [id number] : 1940 F 77 From: Laya Montilla MD PCP: Chaparrita Albrecht DO Status: REG CLI Study: Brain W/WO Contrast Date of Exam: 06/10/17 Exam# [id number] Ordering Dr: Chaparrita Albrecht DO STUDY: MRI [...] Service support , CC: Chaparrita Albrecht DO Ultrasonographer: Signed 05-May-2017 Chest PA and Lateral Result: Comments: See Note; NOTES: [facility] Imaging Services [address] [place] [address] Chest PA and Lateral MR#: [id number] Acct: [id number] Name: CLARENCE ALBERT Rep #: [id number] : 1940 F 77 From: Edwar Patino MD PCP: Chaparrita Albrecht DO Status: REG CLI Study: Chest PA and Lateral Date of Exam: 05/05/17 Exam# [id number] Ordering Dr: Keri Singh MD STUDY: X-RAY [...] CC: Keri Singh MD; Chaparrita Albrecht DO Ultrasonographer: Signed 02-Nov-2016 Dexa Bone Density Study (HP) Result: Comments: See Note; NOTES: [facility] Imaging Services [address] [place] [address] Verdana 4d Dexa Bone Density Study (HP) MR#: [id number] Acct: [id number] Name: LYNNE ALBERT Rep #: [id number] : 1940 F 76 From: Misael Hebert MD PCP: Chaparrita Albrecht DO Status: REG CLI Study: Dexa Bone Density Study (HP) Date of Exam: 11/02/16 Exam# [id number] Ordering Dr: Laura DO STUDY: DUAL ENERGY [...] Misael Hebert MD at 11:02 EDT Tel [phone], Service support , CC: Chaparrita Albrecht DO Ultrasonographer: Signed 02-Nov-2016 SCREENING MAMM (CAD), BILAT Result: Comments: See Note; NOTES: [facility] Imaging Services [address] [place] [address] Verdana 4d SCREENING MAMM (CAD), BILAT MR#: [id number] Acct: [id number] Name: CLARENCE ALBERT Rep #: [id number] : 1940 F 76 From: Misael Hebert MD PCP: Chaparrita Albrecht DO Status: [facility] CLI Study: SCREENING MAMM (CAD), BILAT Date of Exam: 11/02/16 Exam# [id number] Ordering Dr: Case Albrecht DO MAMMOGRAPHY - [...] delay biopsy of a clinically suspicious abnormality. [id number] Electronically Signed: Misael Hebert MD at 12:44 EDT Tel [phone], Service support , CC: Chaparrita Albrecht DO Ultrasonographer: Signed 05-Aug-2016 Venous Duplex Lower Extremity Result: Comments: See Note; NOTES: [facility] Cardiovascular Services [address] [place] [address] Venous Duplex US, Unilateral 08/05/16 1053 MR#: [id number] Acct: [id number] Name: CLARENCE WEI Rep #: [id number] : 1940 76 From: Elvin Natarajan MD [...] Dictated: 08/05/16 1053 Date Transcribed: 08/05/16 112 Ultrasonographer: Signed 27-May-2016 Knee 4 or More Views Result: Comments: See Note; NOTES: [facility] Imaging Services [address] [place] [address] Verdana 4d Knee 4 or More Views MR#: [id number] Acct: [id number] Name: CLARENCE ALBERT Rep #: [id number] : 1940 F 76 From: Misael Hebert MD PCP: Chaparrita Albrecht DO Status: REG CLI Study: Knee 4 or More Views Date of Exam: 05/27/16 Exam# [id number] Ordering Dr: Kylah Linda DO UDY: X-RAY [...] MD at 10:41 EST , Service support [phone], CC: Chaparrita Albrecht DO; Kylah Linda DO Ultrasonographer: Signed 13-May-2016 Sinus/Facial Bone Result: Comments: See Note; NOTES: [facility] Imaging Services [address] [place] [address] Verdana 4d Sinus/Facial Bone MR#: [id number] Acct: [id number] Name: CLARENCE ALBERT Rep #: [id number] : 1940 F 76 From: Godwin Winter MD PCP: Chaparrita Albrecht DO Status: REG CLI Study: Sinus/Facial Bone Date of Exam: 05/13/16 Exam# [id number] Ordering Dr: Alejandro Silverman MD STUDY: CT [...] MD at 7:35 EST , Service support [phone], CC: Chaparrita Albrecht DO; Alejandro Silverman MD Ultrasonographer: Signed 21-Apr-2016 Emergency Department Summary Result: Comments: See Note; NOTES: [facility] Medical Records Department [address] [place] [address] Emergency Department Summary MR#: [id number] Acct: [id number] Name: CLARENCE ALBERT Rep #: [id number] : 1940 76 From: Carissa Murphy MD [...] epistaxis. CARISSA MURPHY MD T: NTS JOB: [id number] 04/21/16805 <Electronically signed by Carissa Murphy MD> Date Carissa donovan MD Cosigner Signature (If Indicated): Date CC: Chaparrita Albrecht DO Date Dictated: 04/20/161711 Date Transcribed: 04/20/161711 Ultrasonographer: Signed 20-Apr-2016 Discharge Instruction Result: Comments: See Note; NOTES: [facility] Medical Records Department [facility] [place] [address] Discharge Instruction 04/20/16 1303 MR#: [id number] Acct: [id number] Name: CLARENCE ALBERT Rep #: [id number] : 1940 76 From: Carissa Murphy MD [...] your Primary Care Provider. Call [facility] ([phone]) or report to the closest Emergency Room. Call 911 if necessary. 04/20/16 1075 <Electronically signed by Carissa Murphy MD> Date Carissa Murphy MD Cosigner Signature (If I ndicated): Date CC: Chaparrita Albrecht DO 02-Nov-2015 Carotid Duplex Ultrasound Result: Comments: See Note; NOTES: [facility] Cardiovascular Services [address] [place] [address] Carotid Duplex Ultrasound 10/30/15 1100 MR#: [id number] Acct: [id number] Name: CLARENCE ALBERT Rep #: [id number] : 1940 75 From: Elvin Natarajan MD [...] the left vertebral artery. Procedure Carotid Duplex 29988. The exam was diagnostic. Exam performed in [...] Dictated: 10/30/15 1100 Date Transcribed: 11/02/15 1143 Ultrasonographer: Signed 30-Oct-2015 Bilat Scrn Digital AND CAD Result: Comments: See Note; NOTES: [facility] Imaging Services [address] [place] [address] Verdana 4d Bilat Scrn Digital AND CAD MR#: [id number] Acct: [id number] Name: CLARENCE ALBERT Rep #: [id number] : 1940 F 75 From: Andres Brady MD PCP: Chaparrita Albrecht DO Status: REG CLI Study: Bilat Scrn Digital AND CAD Date of Exam: 10/30/15 Exam# [id number] Ordering Dr: Chaparrita Albrecht DO MAMMOGRAPHY - [...] biop sy of a clinically suspicious abnormality. [id number] Electronically Signed: Andres Brady MD at 17:48 EDT Tel , Service support [phone], CC: Chaparrita Albrecht DO Ultrasonographer: Signed 30-Oct-2015 Bilat Scrn Digital AND CAD Result: Comments: See Note; NOTES: [facility] Imaging Services [address] [place] [address] Verdana 4d Bilat Scrn Digital AND CAD MR#: [id number] Acct: [id number] Name: CLARENCE ALBERT Rep #: [id number] : 1940 F 75 From: Andres Brady MD PCP: Chaparrita Albrecht DO Status: REG CLI Study: Bilat Scrn Digital AND CAD Date of Exam: 10/30/15 Exam# [id number] Ordering Dr: Chaparrita Albrecht DO MAMMOGRAPHY - [...] abnormalities are identified. CC: Chaparrita Albrecht DO Ultrasonographer: Signed 22-Oct-2015 ELECTROCARDIOGRAM, COMPLETE (ECG) (59466) Comments: ekg showed normal sinus rhythym, normal axis, no acute st/t wave changes no change Result: [MEASUREMENTS ANALYSIS] Date of Test: 10/22/2015 14:41:29; Heart Rate: 71; NM Interval: 140; QRS: 94; QT Interval: 384; Corrected QT Interval (QTc): 403; P Wave [place]: 58; QRS Wave [place]: -3; T Wave [place]: 56; Blood Pressure: 128/76 [ECG DIAGNOSTIC STATEMENTS] Date of Test: 10/22/2015 14:41:29; Summary: Sinus Rhythm Low voltage -possible pulmonary disease. ABNORMAL 22-Jul-2015 Kidney and Bladder Result: Comments: See Note; NOTES: [facility] Imaging Services [address] [place] [address] Verdana 4d Kidney and Bladder MR#: [id number] Acct: [id number] Name: BETYYanivRika Mandujano Rep #: [id number] : 1940 F 75 From: Nir Sanchez MD PCP: Chaparrita Albrecht DO Status: REG CLI Study: Kidney and Bladder Date of Exam: 07/22/15 Exam# [id number] Ordering Dr: Chaparrita Albrecht DO STUDY: RENAL [...] at 4:59 EDT Tel , Service support [phone], CC: Chaparrita Albrecht DO Ultrasonographer: Signed 11-Mar-2015 Knee 4 or More Views Result: Comments: See Note; NOTES: [facility] Imaging Services [address] [place] [address] Verdana 4d Knee 4 or More Views MR#: [id number] Acct: [id number] Name: CLARENCE ALBERT Rep #: [id number] : 1940 F 74 From: Trent Cameron DO PCP: Chaparrita Albrecht DO Status: REG CLI Study: Knee 4 or More Views Date of Exam: 03/11/15 Exam# [id number] Ordering Dr: Case Albrecht DO STUDY: X-RAY [...] at 7:45 EST Tel , Service support [phone], RAD/Knee 4 or More Views IMPRESSION: Degener ative changes within the knee. No acute fracture. Small suprapatellar effusion. Electronically Signed: Trent Cameron DO at 7:45 EST Tel , Service support [phone], CC: Chaparrita Albrecht DO Ultrasonographer: Signed 11-Mar-2015 Knee 4 or More Views Result: Comments: See Note; NOTES: [facility] Imaging Services [address] [place] [address] Verdana 4d Knee 4 or More Views MR#: [id number] Acct: [id number] Name: ALBERT CLARENCE Nazia Rep #: [id number] : 1940 F 74 From: Trent Cameron DO PCP: Chaparrita Albrecht DO Status: REG CLI Study: Knee 4 or More Views Date of Exam: 03/11/15 Exam# [id number] Ordering Dr: Case Albrecht DO STUDY: X-RAY [...] at 7:46 EST Tel , Service support [phone], RAD/Knee 4 or More Views IMPRESSION: Mild degenerative changes. No acute bony abnormality. Electronically Signed: Trent Cameron DO at 7:46 EST Tel , Service support [phone], CC: Chaparrita Albrecht DO Ultrasonographer: Signed 18-Oct-2014 Carotid Duplex Ultrasound Result: Comments: See Note; NOTES: [facility] Cardiovascular Services [address] [place] [address] Carotid Duplex Ultrasound 10/18/14 1331 MR#: [id number] Acct: [id number] Na me: CLARENCE ALBERT Rep #: [id number] : 1940 74 From: Elvin Natarajan MD [...] the left vertebral artery. Procedure Carotid Duplex 79075. The exam was diagnostic. Exam performed in [...] Dictated: 10/18/14 1331 Date Transcribed: 10/18/14 1616 Ultrasonographer: Signed 18-Oct-2014 Bilat Scrn Digital AND CAD Result: Comments: See Note; NOTES: [facility] Imaging Services [address] [place] [address] Breast Imaging Report MR#: [id number] Acct: [id number] Name: CLARENCE ALBERT Rep #: [id number] : 1940 F 74 From: Misael Hebert MD PCP: Chaparrita Albrecht DO Status: REG CLI Study: Billila Scrn Digital AND CAD Date of Exam: 10/18/14 Exam# [id number] Ordering Dr: Chaparrita Albrecht DO MAMMOGRAPHY - [...] Misael redmond MD at 13:44 EDT Tel [phone], Service support [phone], CC: Chaparrita Albrecht DO Ultrasonographer: Signed 09-Jul-2014 Dexa Bone Density Study (HP) Result: Comments: See Note; NOTES: [facility] Imaging Services [address] [place] [address] Bone Density Report MR#: [id number] Acct: [id number] Name: CLARENCE ALBERT Rep #: [id number] : 1940 F 74 From: Misael Hebert MD PCP: Chaparrita Albrecht DO Status: [facility] CLI Study: Dexa Bone Density Study (HP) Date of Exam: 07/09/14 Exam# [id number] Ordering Dr: Chaparrita Albrecht DO STUDY: DUAL [...] Angel Hebert MD at 14:55 EDT Tel [phone], Service support [phone], CC: Chaparrita Albrecht DO Ultrasonographer: Signed 17-Sep-2013 Chest PA and Lateral Result: Comments: See Note; NOTES: [facility] Imaging Services [address] [place] [address] Radiology Report MR#: [id number] Acct: [id number] Name: CLARENCE ALBERT Rep #: [id number] : 1940 F 73 From: David Bennett MD PCP: Chaparrita Albrecht DO Status: REG CLI Study: Chest PA and Lateral Date of Exam: 09/17/13 Exam# [id number] Ordering Dr: Chaparrita Albrecht DO STUDY: X-RAY [...] MD at 20:44 EDT , Service support [phone], RAD/Chest PA and Lateral IMPRESSION: No focal infiltrate or edema. Electronic ally Signed: David Bennett MD at 20:44 EDT , Service support [phone], CC: Chaparrita Albrecht DO Ultrasonographer: Signed 17-Sep-2013 Spirometry (93009) Result: 29-Aug-2013 Carotid Duplex Ultrasound Result: Comments: See Note; NOTES: [facility] Cardiovascular Services [address] [place] [address] Carotid Duplex Ultrasound 08/24/13 0939 MR#: [id number] Acct: [id number] Chalo e: CLARNECE ALBERT Rep #: [id number] : 1940 73 From: Anurag Loya MD [...] in the left bulb. Procedure Carotid Duplex 00919. Exam perfor med in department. Interpretation Summary Mild (<50%) stenosis right extracranial internal carotid. Mild (<50%) stenosis left extracranial internal carotid. Flow within the vertebra l arteries is antegrade bilaterally. Ordering Physician: Chaparrita Albrecht Performed By: Kendal Benton RVT : Chaparrita Albrecht DO Date Dictated: 08/24/13 0939 Date Transcribed: 08/29/13 1118 Ultrasonographer: Signed Immunization Name Dates Details Influenza (3 years and up) on: 16-Jan-2008 Comments: Lot #: [id number] date: 09/10Amount given: 0.5 mlRoute: IMSite given: Left deltoidGiven by: Olivia Bell LPN Influenza (3 years and up) on: 09-Jan-2009 Comments: Lot #[id number]-left deltoidDose0.5mlgiven by Marycarmen Jorge LPN Pneumococcal (2 years and up) on: 29-Aug-2007 Comments: 0.5cc given im lt arm [id number] exp 02-13-08 Family History Unknown Family Member [...] Description Value Details :24 HgA1C , Office (62484) HgA1C , Office 6.5 % (Normal) Range: 4.6 - 7.1 :14 LIPID PANEL (68529) Comments: PATIENT WAS FASTINGPERFORMED BY: [facility] HospitalRdoksz8917 [facility] [id number] LDL/HDL Ratio 1.1 {ratio} (Normal) Range: 0.0-3.2 [...] (Normal) Range: 100-199 :14 Vitamin D Hydroxy (87252) Comments: PATIENT WAS FASTINGPERFORMED BY: [facility] RealitySaint [facility] HospitalPzkooc3321 [facility] [id number] Vitamin D, 25-Hydroxy 37.8 ng/mL (Normal) Range: 30.0-100.0 Comments: Vitamin D deficiency has been defined by the [place] [facility] and an Endocrine Society practice guideline as alevel of serum 25-OH vitamin D less than 20 ng/mL (1,2).The Endocrine Society went on to further define vitamin Dinsufficiency as a level between 21 and 29 ng/mL (2).1. IOM ([place] of Medicine). 2010. Dietary reference intakes for calcium and D. [place]: The National Academies Press.2. Mira MF, Rosette LOPEZ, Tommy SWAIN, et al. Evaluation, treatment, and prevention of vitamin D deficiency: an Endocrine Society clinical practice guideline. JCEM. 2010; 96(7):1911-30. :14 CBC with auto diff (42859) Comments: PATIENT WAS FASTINGPERFORMED BY: [facility] Yykjio8025 [facility] [id number] Immature Grans (Abs) 0.0 {x10E3/uL} (Normal) Range: [...] COMPREHENSIVE Comments: PATIENT WAS FASTINGPERFORMED BY: [facility]CoSaint [facility] HospitalBwdcbb4529 [facility] [id number] (98963) ALT (SGPT) 10 [iU]/L (Normal) Range: 0-32 [...] CREATININE RATIO Comments: PATIENT WAS FASTINGPERFORMED BY: [facility] RealitySaint [facility] HospitalKlupgy4789 [facility] [id number] (17034) AND (94479) Alb/Creat Ratio 4213.3 {mg/g_creat} (Abnormal) Range: 0.0-30.0 Albumin, Urine 3206.3 ug/mL (Normal) Comments: Results confirmed ondilution. Creatinine, Urine 76.1 mg/dL (Normal) :40 CBC & PLATELETS (AUTO) (19418) Comments: please fax to Dr. Austin- [phone]; PATIENT WAS FASTINGPERFORMED BY: [facility] RealitySaint [facility] HospitalFjwycq4950 [facility] [id number] Platelets 148 {x10E3/uL} (Abnormal) Range: 150-379 RDW [...] PANEL Comments: please fax to Dr. Austin- [phone]; PATIENT WAS FASTINGPERFORMED BY: [facility]6370 [facility] [id number] Information: 440885,G23215 FX DR. SANTANA (37423) Albumin 3.1 g/dL (Abnormal) Range: 3.5-4.8 Phosphorus [...] 133 mg/dL (Abnormal) Range: 65-99 :40 MAGNESIUM (94064) Comments: please fax to Dr. Austin- [phone]; PATIENT WAS FASTINGPERFORMED BY: [facility] Fqkqti2854 [facility] [id number] Magnesium 1.9 mg/dL (Normal) Range: 1.6-2.3 61-Zgp-88116:40 CALCIFEDIOL (51426) Comments: please fax to Dr. Austin- [phone]; PATIENT WAS FASTINGPERFORMED BY: [facility] Kjwfqh3557 [facility] [id number] Vitamin D, 25-Hydroxy 29.4 ng/mL (Abnormal) Range: 30.0-100.0 Comments: Vitamin D deficiency has been defined by the [place] [facility] and an Endocrine Society practice guideline as alevel of serum 25-OH vitamin D less than 20 ng/mL (1,2).The Endocrine Society went on to further define vitamin Dinsufficiency as a level between 21 and 29 ng/mL (2).1. IOM ([place] of Medicine). 2010. Dietary reference intakes for calcium and D. [place]: The National Academies Press.2. Mira MF, Rosette LOPEZ, Tommy SWAIN, et al. Evaluation, treatment, and prevention of vitamin D deficiency: an Endocrine Society clinical practice guideline. JCEM. 2010; 96(7):1911-30. :40 PARATHORMONE (99528) Comments: please fax to Dr. Austin- [phone]; PATIENT WAS FASTINGPERFORMED BY: EVE [facility] Gcuhub[address] [place] [id number] PTH, Intact 22 pg/mL (Normal) Range: 15-65 :30 COLON BIOPSY (CHOOSE See Note (Normal) Comments: [facility] [address] [place], [address] SITE) Comments: Patient: CLARENCE ALBERT : 1940 (77/F) Acct Num: [id number] Phys: Marcus Caldera Unit Num: [id number] Loc: [facility]SPEC Specimen: [id number] Received: 09/16/171528 Spec Type: C OLON BX [...] one cassette. / MARCY:dustin 09/19/17 TC:1 CPT: 51468 x2 HEADER OPERATION: Colonoscopy PRE-OP DIAGNOSIS: History [...] COMPREHENSIVE Comments: PATIENT NOT FASTINGPERFORMED BY: [facility]CoSaint [facility] HospitalMsofwt5909 [facility] [id number] (78957) ALT (SGPT) 14 [iU]/L (Normal) Range: 0-32 [...] (Abnormal) Range: 65-99 :07 HgA1C , Office (41776) HgA1C , Office 7.2 % (Abnormal) Range: 4.6 - 7.1 :37 Clostridium difficile Toxin Comments: PATIENT NOT FASTINGPERFORMED BY: [facility]CoSaint [facility] HospitalUfxygi6344 [facility] [id number] A+B, EIA (87343) C difficile Toxins A+B, EIA Negative (Normal) :37 LEUKOCYTE COUNT, FECAL (96607) Comments: PATIENT NOT FASTINGPERFORMED BY: [facility] [id number] Result 1 NWBC (Normal) Comments: No white blood cells seen. White Blood Cells (WBC), Final report (Normal) Stool :37 OVA & PARASITE DIR SMEAR Comments: PATIENT NOT FASTINGPERFORMED BY: [facility] [id number] (66384) Result 1 NOCP (Normal) Comments: No ova, cysts, or parasites seen. Ova + Parasite Exam Final report (Normal) Comments: These results were obtained using wet preparation(s) and trichromestained smear. This test does not include testing for Cryptosporidiumparvum, Cyclospora, or Microsporidia. :37 SETH CULTURE-STOOL (43532) Comments: PATIENT NOT FASTINGPERFORMED BY: [facility] [id number] Information: SRC:ST SRC:ST E coli Shiga Toxin EIA Negative (Normal) Result 1 NCI (Normal) Comments: No Campylobacter species isolated. Campylobacter Culture Final report (Normal) Result 1 NSS (Normal) Comments: No Salmonella or Shigella recovered. Salmonella/Shigella Screen Final report (Normal) :06 Renal function Panel Comments: fax copy to Dr. Santana [phone]; A courtesy copy of this report has been sent [phone].PATIENT NOT FASTINGPERFORMED BY: [facility] [id number] Information: NURSE DRAW (96610) Albumin 3.5 g/dL (Normal) Range: 3.5-4.8 Phosphorus [...] copy of this report has been sent [phone].PATIENT NOT FASTINGPERFORMED BY: Paragonix TechnologiesCritical access hospital [id number] :02 Range: 15-65 Vitamin D, 25-Hydroxy 34.7 ng/mL (Normal) Comments: A courtesy copy of this report has been sent [phone].PATIENT NOT FASTINGPERFORMED BY: [employer]6370 [facility] HoldingsCritical access hospital [id number] :02 Range: 30.0-100.0 Comments: Vitamin D deficiency has been defined by the [place] ofMedicine and an Endocrine Society practice guideline as alevel of serum 25-OH vitamin D less than 20 ng/mL (1,2).The Endocrine Society went on to further define vitamin Dinsufficiency as a level between 21 and 29 ng/mL (2).1. IOM ([place] of Medicine). 2010. Dietary reference intakes for calcium and D. [place]: The National Academies Press.2. Mira MF, Rosette [place], Tommy SWAIN, et al. Evaluation, treatment, and prevention of vitamin D deficiency: an Endocrine Society clinical practice guideline. JCEM. 2010; 96(7):1911-30. 2-Vrn-220685:02 MICROALBUMIN: CREATININE RATIO Comments: send results to Dr. Santana fax: [phone]; A courtesy copy of this report has been sent [phone].PATIENT NOT FASTINGPERFORMED BY: [employer] Csmjay9123 WellAware HoldingsCritical access hospital [id number] (96124) AND (35642) Alb/Creat Ratio 4191.2 {mg/g_creat} (Abnormal) Range: 0.0-30.0 Albumin, Urine 2380.6 ug/mL (Normal) Comments: Results confirmed ondilution. Creatinine, Urine 56.8 mg/dL (Normal) 4-Esl-892775:02 CBC, PLATELETS & MANUAL Comments: send results to Dr. Santana fax: [phone]; A courtesy copy of this report has been sent [phone].PATIENT NOT FASTINGPERFORMED BY: [facility] [id number] Information: VIT D25, PTH DIFF (42927) Immature Grans (Abs) 0.0 {x10E3/uL} (Normal) Range: [...] 3.77-5.28 WBC 5.4 {x10E3/uL} (Normal) Range: 3.4-10.8 3-Cgl-365392:02 MAGNESIUM (25922) Comments: send results to Dr. Santana fax: [phone]; A courtesy copy of this report has been sent [phone].PATIENT NOT FASTINGPERFORMED BY: [employer] [id number] Magnesium, Serum 1.8 mg/dL (Normal) Range: 1.6-2.3 0-Lzp-571203:02 RENAL FUNCTION PANEL (85849) Comments: send results to Dr. Santana fax: [phone]; A courtesy copy of this report has been sent [phone].PATIENT NOT FASTINGPERFORMED BY: [employer]70 [facility] [id number] Albumin, Serum 3.7 g/dL (Normal) Range: 3.5-4.8 [...] Glucose, Serum 119 mg/dL (Abnormal) Range: 65-99 0-Ntd-449696:07 LIPID PANEL (09467) Comments: PATIENT WAS FASTINGPERFORMED BY: [employer] Dajgzl1139 [facility] [id number] LDL/HDL Ratio 1.4 {ratio} (Normal) Range: 0.0-3.2 Comments: LDL/HDL Ratio Men Women 1/2 Avg.Risk 1.0 1.5 Av g.Risk 3.6 3.2 2X Avg.Risk 6.2 5.0 3X Avg.Risk 8.0 6.1 LDL Cholesterol Calc 102 mg/dL (Abnormal) Range: 0-99 VLDL Cholesterol Cesar 17 mg/dL (Normal) Range: 5-40 HDL Cholesterol 75 mg/dL (Normal) Triglycerides 84 mg/dL (Normal) Range: 0-149 Cholesterol, Total 194 mg/dL (Normal) Range: 100-199 0-Xxy-258666:07 CBC W/AUTO DIFF WBC (60536) Comments: PATIENT WAS FASTINGPERFORMED BY: [facility] Tnmceu0926 [facility] [id number] Immature Grans (Abs) 0.0 {x10E3/uL} (Normal) Range: [...] 3.77-5.28 WBC 4.8 {x10E3/uL} (Normal) Range: 3.4-10.8 5-Sbo-095514:07 METABOLIC PANEL, COMPREHENSIVE Comments: PATIENT WAS FASTINGPERFORMED BY: EVE Branded Realitysyl EmersonYxicux9543 [facility] [id number] (89407) ALT (SGPT) 14 [iU]/L (Normal) Range: 0-32 [...] 8-27 Glucose 158 mg/dL (Abnormal) Range: 65-99 6-Khf-677567:07 VITAMIN B-12 (CYANOCOBALAMIN) Comments: PATIENT WAS FASTINGPERFORMED BY: EVE Branded RealitySaint Peter's University HospitalQwosbs6579 [facility] [id number] (72544) Vitamin B12 771 pg/mL (Normal) Range: 232-1245 13-May-20170:00 CDIFF (Molecular) Comments: [facility] Evtpixwmzb3676 FABRIZIO Amanda, [address] CDIFF See Note (Normal) Comments: Cdiff-MolecularNormal Reference Range = Negative C. Diff DNA Negative- No toxigenic C. Diff DNA DetectedNAAT METHOD Testing was performed using nucleic acid amplification :32 Rapid Flu (51371 x 2) Influenza A Ag Negative (Normal) :35 CBC with auto diff (43226) Comments: PATIENT WAS FASTINGPERFORMED BY: [facility] Qtxzro8067 [facility] [id number] Immature Grans (Abs) 0.0 {x10E3/uL} (Normal) Range: [...] COMPREHENSIVE Comments: PATIENT WAS FASTINGPERFORMED BY: [facility] Wegifb7013 [facility] [id number] (56883) ALT (SGPT) 16 [iU]/L (Normal) Range: 0-32 [...] (Abnormal) Range: 65-99 :51 HgA1C , Office (39190) HgA1C , Office 6.7 % (Normal) Range: 4.6 - 7.1 :50 CALCIFEDIOL (65577) Comments: A courtesy copy of this report has been sent [phone].PATIENT WAS FASTINGPERFORMED BY: [employer]6370 WellAware Holdingsin [place] [id number] Vitamin D, 25-Hydroxy 40.7 ng/mL (Normal) Range: 30.0-100.0 Comments: Vitamin D deficiency has been defined by the [place] of[place]icine and an Endocrine Society practice guideline as alevel of serum 25-OH vitamin D less than 20 ng/mL (1,2).The Endocrine Society went on to further define vitamin Dinsufficiency as a level between 21 and 29 ng/mL (2).1. IOM ([place] of Medicine). 2010. Dietary reference intakes for calcium and D. [place]: The National Academies Press.2. Mira MF, Rosette LOPEZ, Tommy SWAIN, et al. Evaluation, treatment, and prevention of vitamin D deficiency: an Endocrine Society clinical practice guideline. JCEM. 2010; 96(7):1911-30. 5-Ayi-127602:50 PTH (PARATHORMONE) (74005) Comments: A courtesy copy of this report has been sent [phone].PATIENT WAS FASTINGPERFORMED BY: [employer]6370 WellAware Holdingsin [place] [id number] PTH, Intact 20 pg/mL (Normal) Range: 15-65 5-Mtr-692784:50 MICROALBUMIN: CREATININE RATIO Comments: A courtesy copy of this report has been sent [phone].PATIENT WAS FASTINGPERFORMED BY: [employer] Wrxpsm6765 WellAware HoldingsCritical access hospital [id number] (67563) AND (89450) Microalb/Creat Ratio 4376.0 {mg/g_creat} (Abnormal) Range: 0.0-30.0 Microalbumin, Urine 3369.5 ug/mL (Normal) Comments: Results confirmed ondilution. Creatinine, Urine 77.0 mg/dL (Normal) 0-Ngy-119161:50 Renal function Panel Comments: A courtesy copy of this report has been sent [phone].PATIENT WAS FASTINGPERFORMED BY: CB [facility] Medical [facility] Health Technologiesblin [place] [id number] Information: FX DR. SANTANA [phone] (30110) Albumin, Serum 3.8 g/dL (Normal) Range: 3.5-4.8 [...] Glucose, Serum 203 mg/dL (Abnormal) Range: 65-99 1-Vwr-509531:50 Magnesium (52262) Comments: A courtesy copy of this report has been sent [phone].PATIENT WAS FASTINGPERFORMED BY: Branded RealitySaint Peter's University HospitalHzqknt6646 [facility] [id number] Magnesium, Serum 1.8 mg/dL (Normal) Range: 1.6-2.3 1-Orb-954720:53 CBC with auto diff (20375) Comments: A courtesy copy of this report has been sent [phone].PATIENT WAS FASTINGPERFORMED BY: [facility]6370 [facility] [id number] Immature Grans (Abs) 0.0 {x10E3/uL} (Normal) Range: [...] {x10E3/uL} (Normal) Range: 3.4-10.8 :53 LIPID PANEL (98433) Comments: A courtesy copy of this report has been sent [phone].PATIENT WAS FASTINGPERFORMED BY: LabCoSaint Peter's University HospitalZxjqvx2759 [facility] [id number] LDL/HDL Ratio 1.2 {ratio_units} (Normal) Range: 0.0-3.2 [...] copy of this report has been sent [phone].PATIENT WAS FASTINGPERFORMED BY: [employer] Pzvovi8252 [facility] [id number] (04777) ALT (SGPT) 11 [iU]/L (Normal) Range: 0-32 [...] Glucose, Serum 205 mg/dL (Abnormal) Range: 65-99 56-Uui-919817:57 HgA1C , Office (94411) HgA1C , Office 7.1 % (Normal) Range: 4.6 - 7.1 :09 LIPID PANEL (69761) Comments: PATIENT WAS FASTINGPERFORMED BY: LabTTS PharmaPinon Health CenterXstblp8112 [facility] [id number] LDL/HDL Ratio 1.3 {ratio_units} (Normal) Range: 0.0-3.2 [...] COMPREHENSIVE Comments: PATIENT WAS FASTINGPERFORMED BY: LabCoSaint Peter's University HospitalYztlpd9745 [facility] [id number] (88652) ALT (SGPT) 12 [iU]/L (Normal) Range: 0-32 [...] (Abnormal) Range: 65-99 :50 HgA1C , Office (45910) HgA1C , Office 6.7 % (Normal) Range: 4.6 - 7.1 :25 Magnesium, Serum 1.9 mg/dL (Normal) Comments: PATIENT WAS FASTINGPERFORMED BY: [employer] Dyfmss4481 [address]by RoadDublin [place] [id number] Range: 1.6-2.3 :25 Microalb/Creat Ratio, Randm Ur Comments: PATIENT WAS FASTINGPERFORMED BY: [employer] LabTTS Pharmarp Yrsiva4553 [address] RoadDublin [place] [id number] Microalb/Creat Ratio 2652.0 {mg/g_creat} Range: 0.0-30.0 (Abnormal) Microalbumin, Urine 2482.3 ug/mL (Normal) Comments: Results confirmed ondilution. Creatinine, Urine 93.6 mg/dL (Normal) PTH, Intact 26 pg/mL (Normal) Comments: PATIENT WAS FASTINGPERFORMED BY: LabTTS Pharmarp Kmqxif7853 [address]by RoadDublin [place] [id number] :25 Range: 15-65 :25 Renal Panel (10) Comments: PATIENT WAS FASTINGPERFORMED BY: [facility] Wunogt6955 [address]by RoadDublin [place] [id number] Phosphorus, Serum 4.3 mg/dL (Normal) Range: 2.5-4.5 :25 Thyroxine (T4) Free, Direct, S Comments: PATIENT WAS FASTINGPERFORMED BY: [employer] [facility] Btlthd2367 [address]by RoadDublin [place] [id number] T4,Free(Direct) 1.08 ng/dL (Normal) Range: 0.82-1.77 : TSH 2.980 {uIU/mL} Comments: PATIENT WAS FASTINGPERFORMED BY: [employer] [facility] Mwlgud3197 [address] RoadDublin [place] [id number] 25 (Normal) Range: 0.450-4.500 2-May-64382: Vitamin D, 25-Hydroxy 37.1 ng/mL (Normal) Comments: PATIENT WAS FASTINGPERFORMED BY: [employer] Bgcfdo3375 [facility] [id number] 25 Range: 30.0-100.0 Comments: Vitamin D deficiency has been defined by the [place] ofOhio Valley Hospitalcine and an Endocrine Society practice guideline as alevel of serum 25-OH vitamin D less than 20 ng/mL (1,2).The Endocrine Society went on to further define vitamin Dinsufficiency as a level between 21 and 29 ng/mL (2).1. IOM ([place] of Medicine). 2010. Dietary reference intakes for calcium and D. [place]: The National Academies Press.2. Mira MF, Rosette [place], Tommy SWAIN, et al. Evaluation, treatment, and prevention of vitamin D deficiency: an Endocrine Society clinical practice guideline. JCEM. 2010; 96(7):1911-30. -Aug-20169:25 CBC W/AUTO DIFF WBC (47414) Comments: PATIENT WAS FASTINGPERFORMED BY: [employer] Zoqrzz9687 [facility] [id number] Immature Grans (Abs) 0.0 {x10E3/uL} (Normal) Range: [...] COMPREHENSIVE Comments: PATIENT WAS FASTINGPERFORMED BY: LabCoSaint Peter's University HospitalViqtan0634 [facility] [id number]; non- emergent till apt (93056) ALT (SGPT) 10 [iU]/L (Normal) Range: 0-32 [...] mg/dL (Abnormal) Range: 65-99 :25 LIPID PANEL (79988) Comments: PATIENT WAS FASTINGPERFORMED BY: Cum[facility] FundingHenry Ford Jackson Hospital6370 [facility] [id number] LDL/HDL Ratio 0.9 {ratio_units} (Normal) Range: 0.0-3.2 Comments: LDL/HDL Ratio Men Women 1/2 Avg.Risk 1.0 1.5 Av g.Risk 3.6 3.2 2X Avg.Risk 6.2 5.0 3X Avg.Risk 8.0 6.1 LDL Cholesterol Calc 65 mg/dL (Normal) Range: 0-99 VLDL Cholesterol Cesar 19 mg/dL (Normal) Range: 5-40 HDL Cholesterol 75 mg/dL (Normal) Triglycerides 93 mg/dL (Normal) Range: 0-149 Cholesterol, Total 159 mg/dL (Normal) Range: 100-199 21-Mjl-052184:54 HgA1C , Office (05443) HgA1C , Office 6.6 % (Normal) Range: 4.6 - 7.1 58-Wjx-110645:1 Magnesium, Serum 2.1 mg/dL (Normal) Comments: PATIENT WAS FASTINGPERFORMED BY: Cum[facility] FundingHenry Ford Jackson Hospital6370 [facility] [id number] 2 Range: 1.6-2.3 39-Dmq-929307:12 Microalb/Creat Ratio, Randm Ur Comments: PATIENT WAS FASTINGPERFORMED BY: Cumulus FundingHenry Ford [facility] Hospital6370 [facility] [id number] Microalb/Creat Ratio 1863.4 {mg/g_creat} (Abnormal) Range: 0.0-30.0 Microalbumin, Urine 1416.2 ug/mL (Normal) Comments: Results confirmed ondilution. Creatinine, Urine 76.0 mg/dL (Normal) 73-Rxz-345903:12 Microscopic Examination Comments: PATIENT WAS FASTINGPERFORMED BY: [facility]6370 [facility] [id number] Bacteria None seen (Normal) Mucus Threads Present (Normal) Cast Type Hyaline casts (Normal) Casts Present {/lpf} (Abnormal) Epithelial Cells (non 0-10 {/hpf} Range: 0 - 10 renal) (Normal) RBC 3-10 {/hpf} Range: 0 - 2 (Abnormal) WBC 6-10 {/hpf} Range: 0 - 5 (Abnormal) PTH, Intact 36 pg/mL (Normal) Comments: PATIENT WAS FASTINGPERFORMED BY: [employer] Emftbu8757 [facility] [id number] 0:12 Range: 15-65 Vitamin D, 25-Hydroxy 42.9 ng/mL (Normal) Comments: PATIENT WAS FASTINGPERFORMED BY: [employer] Fknxpl2149 [facility] [id number] 0:12 Range: 30.0-100.0 Comments: Vitamin D deficiency has been defined by the [place] ofOhio Valley Hospitalcine and an Endocrine Society practice guideline as alevel of serum 25-OH vitamin D less than 20 ng/mL (1,2).The Endocrine Society went on to further define vitamin Dinsufficiency as a level between 21 and 29 ng/mL (2).1. IOM ([place] of Medicine). 2010. Dietary reference intakes for calcium and D. [place]: The National Academies Press.2. Mira MF, Rosette [place], Tommy SWAIN, et al. Evaluation, treatment, and prevention of vitamin D deficiency: an Endocrine Society clinical practice guideline. JCEM. 2010; 96(7):1911-30. 20-Dry-455993:12 URINALYSIS, W/ MICRO (26134) Comments: PATIENT WAS FASTINGPERFORMED BY: [facility] Jnrozi8185 [facility] [id number] Microscopic Examination See below: (Normal) Comments: Microscopic was indicated and was performed. Nitrite, Urine Negative (Normal) Urobilinogen,Semi-Qn 0.2 mg/dL (Normal) Range: 0.2-1.0 Bilirubin Negative (Normal) Occult Blood Negative (Normal) Ketones Negative (Normal) Glucose Negative (Normal) Protein 4+ (Abnormal) WBC Esterase Trace (Abnormal) Appearance Clear (Normal) Urine-Color Yellow (Normal) pH 6.0 (Normal) Range: 5.0-7.5 Specific False Pass 1.015 (Normal) Range: 1.005-1.030 68-Asb-980807:12 CBC W/AUTO DIFF WBC (37885) Comments: PATIENT WAS FASTINGPERFORMED BY: Branded RealityPinon Health CenterJqfikc1651 [facility] [id number] Immature Grans (Abs) 0.0 {x10E3/uL} (Normal) Range: [...] 3.77-5.28 WBC 6.2 {x10E3/uL} (Normal) Range: 3.4-10.8 23-Zcm-901723:12 METABOLIC PANEL, COMPREHENSIVE Comments: PATIENT WAS FASTINGPERFORMED BY: Branded RealitySaint Peter's University HospitalKcrjio8695 [facility] [id number] (58533) ALT (SGPT) 14 [iU]/L (Normal) Range: 0-32 [...] Glucose, Serum 154 mg/dL (Abnormal) Range: 65-99 88-Frs-827787:12 LIPID PANEL (68426) Comments: PATIENT WAS FASTINGPERFORMED BY: [facility]Fre[facility] Wevwel0587 [facility] [id number] LDL/HDL Ratio 0.7 {ratio_units} (Normal) Range: 0.0-3.2 Comments: LDL/HDL Ratio Men Women 1/2 Avg.Risk 1.0 1.5 Av g.Risk 3.6 3.2 2X Avg.Risk 6.2 5.0 3X Avg.Risk 8.0 6.1 LDL Cholesterol Calc 49 mg/dL (Normal) Range: 0-99 VLDL Cholesterol Cesar 14 mg/dL (Normal) Range: 5-40 HDL Cholesterol 75 mg/dL (Normal) Triglycerides 68 mg/dL (Normal) Range: 0-149 Cholesterol, Total 138 mg/dL (Normal) Range: 100-199 31-Qls-463912:50 HgA1C , Office (70366) HgA1C , Office 6.7 % (Normal) Range: 4.6 - 7.1 66-Rgr-778373:36 VITAMIN B-12 (CYANOCOBALAMIN) Comments: PATIENT WAS FASTINGPERFORMED BY: [facility]6370 [facility] [id number] (16732) Vitamin B12 802 pg/mL (Normal) Range: 211-946 54-Hhl-002659:36 LIPID PANEL (74809) Comments: PATIENT WAS FASTINGPERFORMED BY: [facility]6370 [facility] [id number] LDL/HDL Ratio 0.8 {ratio_units} (Normal) Range: 0.0-3.2 [...] Cholesterol, Total 161 mg/dL (Normal) Range: 100-199 89-Pvt-898559:36 LDH (LD) (LACTATE DEHYDROGENASE) Comments: PATIENT WAS FASTINGPERFORMED BY: [facility]6370 [facility] [id number] (59217) LDH 217 [iU]/L (Normal) Range: 119-226 88-Gia-054874:36 CBC W/AUTO DIFF WBC (47696) Comments: PATIENT WAS FASTINGPERFORMED BY: [facility]6370 [facility] [id number] Immature Grans (Abs) 0.0 {x10E3/uL} (Normal) Range: [...] 3.77-5.28 WBC 10.6 {x10E3/uL} (Normal) Range: 3.4-10.8 20-Yfb-282063:36 METABOLIC PANEL, COMPREHENSIVE Comments: PATIENT WAS FASTINGPERFORMED BY: LabCoSaint Peter's University HospitalVmtnxw8749 [facility] [id number] (54318) ALT (SGPT) 15 [iU]/L (Normal) Range: 0-32 [...] Glucose, Serum 137 mg/dL (Abnormal) Range: 65-99 57-Lvr-498201:36 TSH (50790) Comments: PATIENT WAS FASTINGPERFORMED BY: Tango Cardlin6370 [facility] [id number] TSH 0.560 {uIU/mL} (Normal) Range: 0.450-4.500 54-Xgd-64564:02 Renal function Panel (55697) Comments: PATIENT WAS FASTINGPERFORMED BY: [employer] LabStoryToys Qzhymr1625 [facility] [id number] Albumin, Serum 3.7 g/dL (Normal) Range: 3.5-4.8 [...] 137 mg/dL (Abnormal) Range: 65-99 :02 MAGNESIUM (33318) Comments: PATIENT WAS FASTINGPERFORMED BY: LikeBrightSaint [facility] [id number] Magnesium, Serum 2.2 mg/dL (Normal) Range: 1.6-2.3 :02 MICROALBUMIN: CREATININE RATIO Comments: PATIENT WAS FASTINGPERFORMED BY: [employer]70 WellAware HoldingsCritical access hospital [id number] (02701) AND (94263) Microalb/Creat Ratio 2038.7 {mg/g_creat} (Abnormal) Range: 0.0-30.0 Microalbumin, Urine 1223.2 ug/mL (Normal) Comments: Results confirmed ondilution. Creatinine, Urine 60.0 mg/dL (Normal) :02 CBC WITH MANUAL DIFF Comments: PATIENT WAS FASTINGPERFORMED BY: [employer]6370 WellAware HoldingsCritical access hospital [id number] Information: [id number] [phone] (26717) Immature Grans (Abs) 0.0 {x10E3/uL} (Normal) Range: [...] {x10E3/uL} (Normal) Range: 3.4-10.8 :02 HGB A1C (69691) Comments: PATIENT WAS FASTINGPERFORMED BY: [employer]6370 [facility] [id number] Hemoglobin A1c 6.4 % (Abnormal) Range: 4.8-5.6 Comments: . Pre-diabetes: 5.7 - 6.4 Diabetes: >6.4 Glycemic control for adults with diabetes: <7.0 :02 Lipid Panel (28691) Comments: PATIENT WAS FASTINGPERFORMED BY: [employer]70 [facility] [id number] LDL/HDL Ratio 1.1 {ratio_units} (Normal) Range: 0.0-3.2 [...] Cholesterol, Total 160 mg/dL (Normal) Range: 100-199 55-Rks-908443:03 HgA1C , Office (28368) HgA1C , Office 6.1 % (Normal) Range: 4.6 - 7.1 :24 CBC W/AUTO DIFF WBC Comments: PATIENT WAS FASTINGPERFORMED BY: LabCoSaint Peter's University HospitalKutvvr3739 [facility] [id number] Information: [id number] (74931) Immature Grans (Abs) 0.0 {x10E3/uL} (Normal) Range: [...] CREATININE RATIO Comments: PATIENT WAS FASTINGPERFORMED BY: [employer].Pinon Health CenterMfpcxg9604 [facility] [id number] (02086) AND (96798) Microalb/Creat Ratio 1223.8 {mg/g_creat} (Abnormal) Range: 0.0-30.0 Microalbumin, Urine 1012.1 ug/mL (Abnormal) Range: 0.0-17.0 Comments: Results confirmed ondilution. Creatinine, Urine 82.7 mg/dL (Normal) Range: 15.0-278.0 :24 METABOLIC PANEL, COMPREHENSIVE Comments: PATIENT WAS FASTINGPERFORMED BY: [employer] Ccgmhe6513 [facility] [id number] (89515) ALT (SGPT) 12 [iU]/L (Normal) Range: 0-32 [...] mg/dL (Abnormal) Range: 65-99 :24 LIPID PANEL (21885) Comments: PATIENT WAS FASTINGPERFORMED BY: LabCoSaint Peter's University HospitalApfrlm3652 [facility] [id number] LDL/HDL Ratio 1.1 {ratio_units} (Normal) Range: 0.0-3.2 [...] Range: 100-199 :30 CBC W/Diff, Automated Comments: [facility] Skqazozyzx9[address] [place], [place], [id number] Absolute Lymph 0.83 {X10_3/ul} (Normal) Range: 0.83-4.51 [...] (Normal) Range: 4.4-11.0 :30 Hemoglobin A1c Comments: [address] [place], [place], [phone](904) HGB A1C 6.1 % (Normal) Range: 4.2-6.3 :30 Magnesium Comments: [address], [phone](772) MG 1.8 mg/dL (Normal) Range: 1.8-2.4 :30 Protein+Creatinine Ratio,Urine Comments: [address], [phone](129) PROT:CRE RATIO 2121 {mg/g_CRE} (Abnormal) Range: 0-200 PROTEIN,UR.RAN. 164.2 mg/dL (Abnormal) UR CREAT 77.40 mg/dL (Normal) :30 Renal Profile Comments: [address] [place], [place], [phone](055) CO2 27.0 mmol/L (Normal) Range: 21.0-32.0 CL [...] 126 mg/dLsuggests DIABETES MELLITUS per A.D.A. criteria. 66-Owh-33848:00 24 HR UR Creatinine Clearance Comments: [facility] Otogfwnzko6914 [facility]. [place], [place], [phone] CREAT CLEARANCE 24 ml/min (Abnormal) Range: 100-200 URINE CREAT 20.6 mg/dL (Normal) EST GFR - AA 38 mL/min (Abnormal) Comments: GFR Calc EST GFR 31 mL/min (Abnormal) Comments: Non- GFR Calc SERUM CREAT 1.7 mg/dL (Abnormal) Range: 0.6-1.0 UR TOTAL VOLUME 2800 mL (Normal) UR COLLECT TIME 24.0 {HOURS} (Normal) 91-Jky-37965:00 Protein, Urine 24HR Comments: [facility] Ydcrgpjdtv9645 [facility] [place], [address] 24hr UR PROTEIN 1178.8 {mg/24HR} (Abnormal) URINE PROTEIN 42.1 mg/dL (Abnormal) UR TOTAL VOLUME 2800 mL (Normal) UR COLLECT TIME 24.0 {HOURS} (Normal) 0-Blw-164893:29 Metabolic Panel, Basic Comments: PATIENT NOT FASTINGPERFORMED BY: LabCoSaint Peter's University HospitalZwzcps2787 [facility] [id number] Information: [id number] (06520) Calcium, Serum 9.3 mg/dL (Normal) Range: 8.7-10.3 [...] Glucose, Serum 102 mg/dL (Abnormal) Range: 65-99 49-Whm-22653:39 Metabolic Panel, Basic Comments: tuesday; PATIENT NOT FASTINGPERFORMED BY: [facility] Zwmjdq7937 [facility] [id number] Information: [id number] (11693) Calcium, Serum 9.0 mg/dL (Normal) Range: 8.7-10.3 [...] Glucose, Serum 149 mg/dL (Abnormal) Range: 65-99 37-Dwj-090937:32 HgA1C , Office (67933) HgA1C , Office 6.2 % (Normal) Range: 4.6 - 7.1 :31 Rapid Strep Test, Office (03800) Comments: neg Rapid Strep Test, Office Negative (Normal) :06 THROAT CULTURE (07090) Comments: PATIENT NOT FASTINGPERFORMED BY: CB [facility] Xmystg0569 [address] RoadDublin [place] [id number] Information: [id number] Result 1 RRF (Normal) Comments: Routine respiratory luis Upper Respiratory Culture Final report (Normal) :52 TSH (32173) Comments: PATIENT WAS FASTINGPERFORMED BY: CB [facility] Kpjvnv9973 [address] RoadDublin [place] [id number] TSH 2.190 {uIU/mL} (Normal) Range: 0.450-4.500 :52 Vitamin D Hydroxy (50436) Comments: PATIENT WAS FASTINGPERFORMED BY: CB [facility] Hqcdvh3280 [address] RoadDublin [place] [id number] Vitamin D, 25-Hydroxy 43.8 ng/mL (Normal) Range: 30.0-100.0 Comments: Vitamin D deficiency has been defined by the [place] of[place]icine and an Endocrine Society practice guideline as alevel of serum 25-OH vitamin D less than 20 ng/mL (1,2).The Endocrine Society went on to further define vitamin Dinsufficiency as a level between 21 and 29 ng/mL (2).1. IOM ([place] of Medicine). 2010. Dietary reference intakes for calcium and D. [place]: The National Academies Press.2. Mira MF, Rosette [place], Tommy SWAIN, et al. Evaluation, treatment, and prevention of vitamin D deficiency: an Endocrine Society clinical practice guideline. JCEM. 2010; 96(7):1911-30. :52 LIPID PANEL (64565) Comments: PATIENT WAS FASTINGPERFORMED BY: CB [facility] Zkxjtu7566 [address] RoadDublin [place] [id number] LDL/HDL Ratio 1.3 {ratio_units} (Normal) Range: 0.0-3.2 [...] diff Comments: PATIENT WAS FASTINGPERFORMED BY: LabCoSaint Peter's University HospitalKjqpax1098 [facility] [id number] Information: [id number] (85715) Immature Grans (Abs) 0.0 {x10E3/uL} (Normal) Range: [...] COMPREHENSIVE Comments: PATIENT WAS FASTINGPERFORMED BY: LabCoSaint Peter's University HospitalJawprj4289 [facility] [id number] (37699) ALT (SGPT) 19 [iU]/L (Normal) Range: 0-32 [...] (Abnormal) Range: 65-99 :08 HgA1C , Office (13243) HgA1C , Office 6.4 % (Normal) Range: 4.6 - 7.1 2-Gyx-871193:00 Creatinine Clearance Comments: PATIENT NOT FASTINGPERFORMED BY: [facility]6370 [facility] [id number] Information: [id number] S TART Creatinine Clearance 33 mL/min (Abnormal) Range: 88-128 Comments: The above range is based on 1.73 square meter average body surfacearea. Creatinine, Ur 24hr 642.0 {mg/24_hr} (Abnormal) Range: 800.0-1800.0 Creatinine, Urine 34.7 mg/dL (Normal) Range: 15.0-278.0 eGFR If Africn Am 43 mL/min/1.73 (Abnormal) eGFR If NonAfricn Am 37 mL/min/1.73 (Abnormal) Creatinine, Serum 1.37 mg/dL (Abnormal) Range: 0.57-1.00 9-Uhv-806021:00 Protein Total, Qn, 24-Hr Comments: PATIENT NOT FASTINGPERFORMED BY: [facility]6370 [facility] [id number] Urine Prot,24hr calculated 1309.8 {mg/24_hr} (Abnormal) Range: 30.0-150.0 Protein,Total,Urine 70.8 mg/dL (Abnormal) Range: 0.0-15.0 :01 CBC W/Diff, Automated Comments: Test performed at:[facility] [address] [place], [place] [id number] Absolute Neut 3.1 {X10_3/uL} (Normal) Range: 2.0-7.7 [...] Range: 4.4-11.0 :01 Magnesium Comments: Test performed at:[facility] [address] [place] [address] MG 2.0 mg/dL (Normal) Range: 1.8-2.4 :01 Protein+Creatinine Ratio,Urine Comments: Test performed at:[facility] [address] [place] [id number] PROT:CRE RATIO 2232 {mg/g_CRE} (Abnormal) Range: 0-200 PROTEIN,UR.RAN. 160.3 mg/dL (Abnormal) UR CREAT 71.8 mg/dL (Normal) :01 Renal Profile Comments: Test performed at:[facility] [address] [place] [address]23 CO2 32.0 mmol/L (Normal) Range: 21.0-32.0 CL [...] mg/dL (Normal) Range: 70-110 :08 LIPID PANEL ([id number]) Comments: PATIENT WAS FASTINGPERFORMED BY: [facility] [id number] LDL/HDL Ratio 1.0 {ratio_units} (Normal) Range: 0.0-3.2 [...] METABOLIC PANEL, Comments: PATIENT WAS FASTINGPERFORMED BY: Branded RealitySaint Peter's University HospitalBhzdml3264 [facility] [id number] Information: [id number] COMPREHENSIVE (61115) ALT (SGPT) 29 [iU]/L (Normal) Range: 0-32 [...] (Abnormal) Range: 65-99 :59 HgA1C , Office (45398) HgA1C , Office 6.5 % (Normal) Range: 4.6 - 7.1 :54 CBC W/AUTO DIFF WBC Comments: PATIENT WAS FASTINGPERFORMED BY: LabCoSaint Peter's University HospitalCmetlb7404 [facility] [id number] Information: [id number] (13067) Immature Grans (Abs) 0.0 {x10E3/uL} (Normal) Range: [...] COMPREHENSIVE Comments: PATIENT WAS FASTINGPERFORMED BY: LabCo Pahbcv1784 [facility] [id number]; non- emergent till apt (49092) ALT (SGPT) 13 [iU]/L (Normal) Range: 0-32 [...] mg/dL (Abnormal) Range: 65-99 :54 LIPID PANEL (20371) Comments: PATIENT WAS FASTINGPERFORMED BY: LabCoSaint Peter's University HospitalZnoips0618 [facility] [id number] LDL/HDL Ratio 1.1 {ratio_units} (Normal) Range: 0.0-3.2 [...] (Normal) Range: 100-199 :29 HgA1C , Office (21906) HgA1C , Office 6.6 % (Normal) Range: 4.6 - 7.1 :12 CBC W/Diff, Automated Comments: Test performed at:[facility] [address] [place], [place] [id number] ; handled by Dr. Santana Absolute Lymph [...] Range: 4.4-11.0 :12 Magnesium Comments: Test performed at:[facility] [address] [place] [address] 25357 MG 2.0 mg/dL (Normal) Range: 1.8-2.4 :12 Microalb:Creat Ratio,Random UR Comments: Test performed at:[facility] [address] [place] [address] ; Dr. Angelo LING:CREAT 1483.0 {mg/g_CRE} (Abnormal) MICROALBUMIN,UR 918.0 mg/L (Normal) UR CREAT 61.9 mg/dL (Normal) :12 Renal Profile Comments: Test performed at:[facility] [address] [place] [address] 87787 CO2 29.0 mmol/L (Normal) Range: 21.0-32.0 CL [...] 126 mg/dLsuggests DIABETES MELLITUS per A.D.A. criteria. 81-Gbh-436803:20 LIPID PANEL (11399) Comments: PATIENT WAS FASTINGPERFORMED BY: [employer] Ovpaek7618 [facility] [id number] LDL/HDL Ratio 1.0 {ratio_units} (Normal) Range: 0.0-3.2 [...] Cholesterol, Total 151 mg/dL (Normal) Range: 100-199 88-Bby-340224:20 METABOLIC PANEL, Comments: PATIENT WAS FASTINGPERFORMED BY: Branded RealitySaint Peter's University HospitalTguurv9707 [facility] [id number] Information: [id number] COMPREHENSIVE (77693) ALT (SGPT) 16 [iU]/L (Normal) Range: 0-32 [...] Glucose, Serum 148 mg/dL (Abnormal) Range: 65-99 24-Qnp-492715:21 CREATININE CLEARANCE Comments: PATIENT WAS FASTINGPERFORMED BY: EVE LabHenry Ford Jackson Hospital6370 [facility] [id number] Information: [id number] START 04/02/14@9AM FINISH 04/03/14 6:00 AM (35512) Creatinine Clearance 42 mL/min (Abnormal) Range: 88-128 Comments: The above range is based on 1.73 square meter average body surfacearea. Creatinine, Ur 24hr 812.3 {mg/24_hr} (Normal) Range: 800.0-1800.0 Creatinine, Urine 28.5 mg/dL (Normal) Range: 15.0-278.0 eGFR If Africn Am 45 mL/min/1.73 (Abnormal) eGFR If NonAfricn Am 39 mL/min/1.73 (Abnormal) Creatinine, Serum 1.33 mg/dL (Abnormal) Range: 0.57-1.00 61-Zkl-244009:21 Total Protein,24 Hour Urine Comments: PATIENT WAS FASTINGPERFORMED BY: CB LabHenry Ford Jackson Hospital6370 [facility] [id number] (90664) Prot,24hr calculated 1559.0 {mg/24_hr} (Abnormal) Range: 30.0-150.0 Protein,Total,Urine 54.7 mg/dL (Abnormal) Range: 0.0-15.0 :57 LIPID PANEL (18361) Comments: PATIENT WAS FASTINGPERFORMED BY: Branded RealitySaint Peter's University HospitalEddbpx0126 [facility] [id number] LDL/HDL Ratio 1.1 {ratio_units} (Normal) Range: 0.0-3.2 Comments: LDL/HDL Ratio Men Women 1/2 Avg.Risk 1.0 1.5 Av g.Risk 3.6 3.2 2X Avg.Risk 6.2 5.0 3X Avg.Risk 8.0 6.1 LDL Cholesterol Calc 71 mg/dL (Normal) Range: 0-99 VLDL Cholesterol Ceasr 25 mg/dL (Normal) Range: 5-40 HDL Cholesterol 65 mg/dL (Normal) Comments: According to ATP-III Guidelines, HDL-C >59 mg/dL is considered anegative risk factor for CHD. Triglycerides 127 mg/dL (Normal) Range: 0-149 Cholesterol, Total 161 mg/dL (Normal) Range: 100-199 :57 CBC WITH MANUAL DIFF Comments: PATIENT WAS FASTINGPERFORMED BY: [facility]6370 [facility] [id number] Information: [id number] (92577) Immature Grans (Abs) 0.0 {x10E3/uL} (Normal) Range: [...] COMPREHENSIVE Comments: PATIENT WAS FASTINGPERFORMED BY: LabCoSaint Peter's University HospitalPtqfft1564 [facility] [id number] (40492) ALT (SGPT) 10 [iU]/L (Normal) Range: 0-32 [...] 0 Comments: Result Units: mg/dL AdultPerformed at: [facility] [address] [id number] Director: Yousuf Bernardo PhD, Phone: [phone] C4 37 (Abnormal) Range: 9-36 0 [...] DIFF Comments: PATIENT WAS FASTINGPERFORMED BY: LabCoSaint Peter's University HospitalLbyzli4486 [facility] [id number] Information: [id number] (46697) Immature Grans (Abs) 0.0 {x10E3/uL} (Normal) Range: [...] 3.77-5.28 WBC 4.5 {x10E3/uL} (Normal) Range: 3.4-10.8 57-Utt-60978:21 METABOLIC PANEL, COMPREHENSIVE Comments: PATIENT WAS FASTINGPERFORMED BY: LabHenry Ford Jackson Hospital6370 [facility] [id number] (11138) ALT (SGPT) 16 [iU]/L (Normal) Range: 0-32 [...] Glucose, Serum 132 mg/dL (Abnormal) Range: 65-99 93-Uxg-982473:53 CREATININE CLEARANCE Comments: PATIENT NOT FASTINGPERFORMED BY: LabCoSaint Peter's University HospitalLuxhtw1906 [facility] [id number] Information: [id number] START 10/30/13@8AM F INISH 10/31/13@8AM 2650ML (95118) Creatinine Clearance 44 mL/min (Abnormal) Range: 88-128 Comments: The above range is based on 1.73 square meter average body surfacearea. Creatinine, Ur 24hr 877.2 {mg/24_hr} (Normal) Range: 800.0-1800.0 Creatinine, Urine 33.1 mg/dL (Normal) Range: 15.0-278.0 eGFR If Africn Am 44 mL/min/1.73 (Abnormal) eGFR If NonAfricn Am 38 mL/min/1.73 (Abnormal) Creatinine, Serum 1.37 mg/dL (Abnormal) Range: 0.57-1.00 25-Lln-216387:53 Total Protein,24 Hour Urine Comments: PATIENT NOT FASTINGPERFORMED BY: [employer] [facility] [id number] (45437) Prot,24hr calculated 3458.3 {mg/24_hr} (Abnormal) Range: 30.0-150.0 Protein,Total,Urine 130.5 mg/dL (Abnormal) Range: 0.0-15.0 24-Nqr-011466:31 HgA1C , Office (97443) HgA1C , Office 6.4 % (Normal) Range: 4.6 - 7.1 74-Ahe-822460:27 Microscopic Examination Comments: PATIENT WAS FASTINGPERFORMED BY: [employer] [facility] [id number] Bacteria Few (Normal) Mucus Threads Present (Normal) Epithelial Cells (non renal) 0-10 {/hpf} (Normal) Range: 0 - 10 RBC 3-10 {/hpf} (Abnormal) Range: 0 - 2 WBC 6-10 {/hpf} (Abnormal) Range: 0 - 5 :32 LIPID PANEL (13643) Comments: PATIENT WAS FASTINGPERFORMED BY: [employer] [facility] [id number] LDL/HDL Ratio 1.0 {ratio_units} (Normal) Range: 0.0-3.2 [...] CREATININE RATIO Comments: PATIENT WAS FASTINGPERFORMED BY: [employer] [facility] [id number] (67142) AND (64060) Microalb/Creat Ratio 1998.9 {mg/g_creat} (Abnormal) Range: 0.0-30.0 Creatinine, Urine 73.4 mg/dL (Normal) Range: 15.0-278.0 Microalbumin, Urine 1467.2 ug/mL (Abnormal) Range: 0.0-17.0 :32 URINALYSIS, W/ MICRO (84802) Comments: PATIENT WAS FASTINGPERFORMED BY: Branded RealitySaint Peter's University HospitalMhisjp2466 [facility] [id number] Microscopic Examination See below: (Normal) Comments: Microscopic was indicated and was performed. Nitrite, Urine Negative (Normal) Urobilinogen,Semi-Qn 0.2 mg/dL (Normal) Range: 0.0-1.9 Bilirubin Negative (Normal) Occult Blood Trace (Abnormal) Ketones Negative (Normal) Glucose Negative (Normal) Protein 3+ (Abnormal) WBC Esterase Trace (Abnormal) Appearance Clear (Normal) Urine-Color Yellow (Normal) pH 6.5 (Normal) Range: 5.0-7.5 Specific False Pass 1.015 (Normal) Range: 1.005-1.030 :32 CBC WITH MANUAL DIFF Comments: PATIENT WAS FASTINGPERFORMED BY: Cumulus FundingHenry Ford Jackson Hospital6370 [facility] [id number] Information: [id number] (42758) Immature Grans (Abs) 0.0 {x10E3/uL} (Normal) Range: [...] COMPREHENSIVE Comments: PATIENT WAS FASTINGPERFORMED BY: LabCoSaint Peter's University HospitalEvbluc8063 [facility] [id number] (11545) ALT (SGPT) 16 [iU]/L (Normal) Range: 0-32 [...] B-12 (CYANOCOBALAMIN) Comments: PATIENT WAS FASTINGPERFORMED BY: Branded RealitySaint Peter's University HospitalCxlwbi3372 [facility] [id number] (82092) Vitamin B12 >1999 pg/mL (Abnormal) Range: 211-946 83-Pkx-712093:01 HgA1C , Office (23278) HgA1C , Office 6.4 % (Normal) Range: 4.6 - 7.1 :37 METABOLIC PANEL, COMPREHENSIVE Comments: PATIENT WAS FASTINGPERFORMED BY: [employer] Rlaijb0812 [facility] [id number] (62749) ALT (SGPT) 12 [iU]/L (Normal) Range: 0-32 [...] (Abnormal) Range: 65-99 :37 Vitamin D Hydroxy (81434) Comments: PATIENT WAS FASTINGPERFORMED BY: [employer]70 [facility] [id number] Vitamin D, 25-Hydroxy 47.4 ng/mL (Normal) Range: 30.0-100.0 Comments: Vitamin D deficiency has been defined by the [place] ofMedicine and an Endocrine Society practice guideline as alevel of serum 25-OH vitamin D less than 20 ng/mL (1,2).The Endocrine Society went on to further define vitamin Dinsufficiency as a level between 21 and 29 ng/mL (2).1. IOM ([place] of Medicine). 2010. Dietary reference intakes for calcium and D. [place]: The National Academies Press.2. Mira MF, Rosette [place], Tommy SWAIN, et al. Evaluation, treatment, and prevention of vitamin D deficiency: an Endocrine Society clinical practice guideline. JCEM. 2010; 96(7):1911-30. :37 LIPID PANEL (32896) Comments: PATIENT WAS FASTINGPERFORMED BY: [employer] LabTTS PharmaSaint Peter's University HospitalCrmicc2333 [facility] [id number] LDL/HDL Ratio 1.2 {ratio_units} (Normal) Range: 0.0-3.2 [...] MANUAL DIFF Comments: PATIENT WAS FASTINGPERFORMED BY: Branded RealitySaint Peter's University HospitalDeakfc5632 [facility] [id number] Information: [id number] (73405) Immature Grans (Abs) 0.0 {x10E3/uL} (Normal) Range: [...] Qn, 24-Hr Comments: PATIENT NOT FASTINGPERFORMED BY: Branded RealitySaint Peter's University HospitalApiuxk2549 [facility] [id number] Information: ADD [id number] AND DRAW FEE 99 6660 V[address] 2600 164LBS 5' '3 Urine Prot,24hr calculated 920.4 {mg/24_hr} Range: 30.0-150.0 (Abnormal) Protein,Total,Urine 35.4 mg/dL Range: 0.0-15.0 (Abnormal) : Written Authorization WAR (Normal) Comments: PATIENT NOT FASTINGPERFORMED BY: [employer] Zyafux6731 [facility] [id number] Comments: Written Authorization Received.Authorization received from Chiqui BRICEÑO LPN [id number] by Marleen Sharma :52 Metabolic Panel, Basic Comments: PATIENT NOT FASTINGPERFORMED BY: [employer] Izsdnu9074 [facility] [id number] Information: ADD [id number] AND DRAW FEE 99 6660 [address]OLUME 2600 164LBS 5' '3 (75461) Calcium, Serum 9.7 mg/dL (Normal) Range: 8.6-10.2 [...] mg/dL (Abnormal) Range: 65-99 :52 CREATININE CLEARANCE (47496) Comments: PATIENT NOT FASTINGPERFORMED BY: [employer] Qpllqn5282 [facility] [id number] Creatinine Clearance 46 mL/min (Abnormal) Range: 88-128 Comments: The above range is based on 1.73 square meter average body surfacearea. Creatinine, Ur 24hr 899.6 {mg/24_hr} (Normal) Range: 800.0-1800.0 Creatinine, Urine 34.6 mg/dL (Normal) Range: 15.0-278.0 :52 24 hour urine for Protein Comments: PATIENT NOT FASTINGPERFORMED BY: Branded RealityPinon Health CenterLwnnlk3133 [facility] [id number] (00072) Microalb/Creat Ratio 695.4 {mg/g_creat} (Abnormal) Range: 0.0-30.0 Microalbumin, Urine 240.6 ug/mL (Abnormal) Range: 0.0-17.0 :13 HgA1C , Office (36437) HgA1C , Office 6.3 % (Normal) Range: 4.6 - 7.1 8-Hyn-355719:01 Blood Glucose , Office (98012) Blood Glucose , Office 162 (Normal) 63-Dqb-500407:02 Microscopic Examination Comments: PATIENT NOT FASTINGPERFORMED BY: [employer] Ajaqwj3217 [facility] [id number] Bacteria Few (Normal) Mucus Threads Present (Normal) [...] Hebert M.D.October 19, 2012 at 2:42:14 PM [id number] Signed GP/GP If you are the referring physician and would like to consult [facility] theradiologist who provided this interpretation, please contact Yasmany Pond at [phone]. If this radiologist is unavailable, youwill be directed to another radiologist to assist. If y ou are a patient with a question regarding this report, pleasecontactyour referring physician directly. Professional Interpretation Provided By: [employer], Phone , These documents contain legally protected [...] 10/19/12 1444 Sign by: Misael Hebert MD 35-Ysx-774018:59 TSH (21398) Comments: PATIENT WAS FASTINGPERFORMED BY: [employer]70 WellAware HoldingsCritical access hospital [id number] TSH 1.230 {uIU/mL} (Normal) Range: 0.450-4.500 :59 LIPID PANEL (70410) Comments: PATIENT WAS FASTINGPERFORMED BY: [employer]6370 WellAware HoldingsCritical access hospital [id number] LDL/HDL Ratio 0.5 {ratio_units} (Normal) Range: 0.0-3.2 LDL Cholesterol Calc 47 mg/dL (Normal) Range: 0-99 Cholesterol, Total 149 mg/dL (Normal) Range: 100-199 HDL Cholesterol 91 mg/dL (Normal) Comments: According to ATP-III Guidelines, HDL-C >59 mg/dL is considered anegative risk factor for CHD. Triglycerides 57 mg/dL (Normal) Range: 0-149 VLDL Cholesterol Cesar 11 mg/dL (Normal) Range: 5-40 31-Zzm-091536:02 URINALYSIS, W/ MICRO Comments: PATIENT NOT FASTINGPERFORMED BY: [employer]70 [facility] [id number] Information: [id number] (01354) Microscopic Examination See below: (Normal) Nitrite, Urine Negative (Normal) Bilirubin Negative (Normal) Urobilinogen,Semi-Qn 0.2 mg/dL (Normal) Range: 0.0-1.9 Occult Blood Negative (Normal) Ketones Negative (Normal) Glucose Negative (Normal) Protein 3+ (Abnormal) WBC Esterase Negative (Normal) Appearance Clear (Normal) Urine-Color Yellow (Normal) pH 5.5 (Normal) Range: 5.0-7.5 Specific False Pass 1.015 (Normal) Range: 1.005-1.030 10-Gek-591727:59 CBC WITH MANUAL DIFF Comments: PATIENT WAS FASTINGPERFORMED BY: LabCoSaint Peter's University HospitalZvaukn5707 [facility] [id number] Information: [id number] (25415) Immature Grans (Abs) 0.0 {x10E3/uL} (Normal) Range: [...] 3.77-5.28 WBC 4.8 {x10E3/uL} (Normal) Range: 3.4-10.8 85-Lyt-743346:59 METABOLIC PANEL, COMPREHENSIVE Comments: PATIENT WAS FASTINGPERFORMED BY: LabCoSaint Peter's University HospitalDqynhn7046 [facility] [id number] (25325) ALT (SGPT) 14 [iU]/L (Normal) Range: 0-32 [...] Glucose, Serum 104 mg/dL (Abnormal) Range: 65-99 0-Zqt-690948:37 HgA1C , Office (87929) HgA1C , Office 6.0 % (Normal) Range: 4.6 - 7.1 4-Glh-746116:31 CRE CREAT 1.3 mg/dL (Abnormal) Range: 0.6-1.0 [...] Galan M.D.August 09, 2012 at 2:38:03 PM [id number] Signed PV/PV If you are the referring physician and would like to consult with theradiologist who provided this interpretation, please contact Donna Burnett M.D. at [phone]. If this radiologist is unavailable, youwillbe directed to another radiologist to assist. If you are a patient with a question regarding this report, pleasecontactyour referring physician evelyne cowan. Professional Interpretation Provided By: [employer], Phone , These documents contain legally protected [...] 08/09/12 1441 Sign by: Donna Martin MD 96-Kms-559790:31 CBC with manual diff Comments: PATIENT NOT FASTINGPERFORMED BY: LabCo Xhintx4451 [facility] [id number] Information: [id number] (41612) Immature Grans (Abs) 0.0 {x10E3/uL} (Normal) Range: [...] 3.77-5.28 WBC 3.2 {x10E3/uL} (Abnormal) Range: 4.0-10.5 92-Wiy-943236:31 Metabolic Panel, Comprehensive Comments: PATIENT NOT FASTINGPERFORMED BY: LabCoSaint Peter's University HospitalTznlmt8607 [facility] [id number] (39679) ALT (SGPT) 19 [iU]/L (Normal) Range: 0-32 [...] mg/dL (Abnormal) Range: 65-99 :31 LIPID PANEL (39043) Comments: PATIENT WAS FASTINGPERFORMED BY: Paragonix TechnologiesCritical access hospital [id number] LDL/HDL Ratio 0.8 {ratio_units} (Normal) Range: 0.0-3.2 [...] MANUAL DIFF Comments: PATIENT WAS FASTINGPERFORMED BY: [employer]70 WellAware HoldingsCritical access hospital [id number] Information: [id number] (45437) Immature Grans (Abs) 0.0 {x10E3/uL} (Normal) Range: [...] PANEL, COMPREHENSIVE Comments: PATIENT WAS FASTINGPERFORMED BY: [facility]6370 [facility] [id number] (55740) ALT (SGPT) 22 [iU]/L (Normal) Range: 0-32 [...] (Abnormal) Range: 65-99 :45 HgA1C , Office (01514) HgA1C , Office 6.1 % (Normal) Range: [...] Galan M.D.February 02, 2012 at 5:10:18 PM [id number] Signed PV/PV If you are the referring physician and w ould like to consult with theradiologist who provided this interpretation, please contact Donna Burnett M.D. at [phone]. If this radiologist is unavailable, youwillbe directed to another radiol ogist to assist. If you are a patient with a question regarding this report, pleasecontactyour referring physician directly. Professional Interpretation Provided By: [employer], Phone ,Fa x [phone] These documents contain legally protected and confidential [...] 02/02/121713 S ign by: Donna Martin MD 75-Zhg-045475:16 DEXA BONE DENSITY STUDY (HP) Radiology Report [...] Coronel M.D.January 20, 2012 at 2:43:46 PM [id number] Signed KERA/KERA If you ar e the [...] 01/20/12 1447 Sign by: David Coronel MD 32-Kwx-750156:15 BILAT SCRN DIGITAL & CAD Radiology Report [...] Coronel M.D.January 20, 2012 at 1:20:11 PM [id number] Signed KERA/KERA If you are the referring physician and would like to consult with theradiologist who provided this interpretation, please contact Yasmany Parnell at . If this radiologist is unavailable,youwill be directed to another radiologist to assist. If you are a patient with a question regarding this report, pleasecontactyour referring physician directly. Professional Interpretation Provided By: [employer], Phone , These documents contain legally protected [...] 01/20/12 1324 Sign by: David Coronel MD 4-Kue-593446:56 PELVIC (NON ) Radiology Report See Note [...] Vuong M.D.January 10, 2012 at 8:39:09 PM [id number] Signed JOHNNY/JOHNNY If you are the referring physician and would like to consult with theradiologist who provided this inte rpretation, please contact Radha Vuong M.D. at [phone]. If this radiologist is unavailable, you will bedirected to another radiologist to assist. If you are a patient with a question regarding this r eport, pleasecontactyour referring physician directly. Professional Interpretation Provided By: [employer], Phone , PROCEDURE: ULTRASOUND OF THE FEMALE [...] Vuong M.D.January 10, 2012 at 8:40:07 PM [id number] Signed JOHNNY/JOHNNY If you are the referring physician and would like to consult with theradiologist who provided this interpretation, please contact Radha Vuong M.D. at [phone]. If this radiologist is unavailable, you will bedirected to another radiologist to assist. If you are a patient with a question regarding this report, pleasecontactyour referring ysician directly. Professional Interpretation Provided By: [employer], Phone , These documents contain legally protected [...] Dictated on 01/10/12 1309 by TATIANA VUONG MDCardinal Hill Rehabilitation Center ribed on 01/11/12 1113 by ITS IMPORTSign by RADHA VUONG MD on 01/11/12 1114 Sign by: RADHA VUONG MD :35 MICROALBUMIN: CREATININE RATIO Comments: PATIENT WAS FASTINGPERFORMED BY: [employer]70 [place] [facility] [id number] (45767) AND (48103) Microalb/Creat Ratio 829.4 {mg/g_creat} (Abnormal) Range: 0.0-30.0 Microalbumin, Urine 437.1 ug/mL (Abnormal) Range: 0.0-17.0 Creatinine, Urine 52.7 mg/dL (Normal) Range: 15.0-278.0 :35 CBC WITH MANUAL DIFF Comments: PATIENT WAS FASTINGPERFORMED BY: [employer]6370 [facility] [id number] Information: [id number] (62786) Immature Grans (Abs) 0.0 {x10E3/uL} (Normal) Range: [...] 3.77-5.28 WBC 3.7 {x10E3/uL} (Abnormal) Range: 4.0-10.5 25-Rqp-07203:35 METABOLIC PANEL, COMPREHENSIVE Comments: PATIENT WAS FASTINGPERFORMED BY: LabCoSaint Peter's University HospitalPyuofm1072 [facility] [id number] (55074) ALT (SGPT) 15 [iU]/L (Normal) Range: 0-32 [...] mg/dL (Abnormal) Range: 65-99 :35 LIPID PANEL (98841) Comments: PATIENT WAS FASTINGPERFORMED BY: [employer]70 WellAware HoldingsCritical access hospital [id number] LDL/HDL Ratio 0.9 {ratio_units} (Normal) Range: 0.0-3.2 LDL Cholesterol Calc 72 mg/dL (Normal) Range: 0-99 HDL Cholesterol 83 mg/dL (Normal) Comments: According to ATP-III Guidelines, HDL-C >59 mg/dL is considered anegative risk factor for CHD. VLDL Cholesterol Cesar 18 mg/dL (Normal) Range: 5-40 Triglycerides 90 mg/dL (Normal) Range: 0-149 Cholesterol, Total 173 mg/dL (Normal) Range: 100-199 :15 HgA1C , Office (01978) HgA1C , Office 6.2 % (Normal) Range: 4.6 - 7.1 :30 CBC WITH MANUAL DIFF Comments: PATIENT WAS FASTINGPERFORMED BY: LabCo Azhexo0419 [place] [facility] [id number] Information: [id number] (12078) Immature Grans (Abs) 0.0 {x10E3/uL} (Normal) Range: [...] 3.77-5.28 WBC 4.2 {x10E3/uL} (Normal) Range: 4.0-10.5 23-Sri-58936:30 METABOLIC PANEL, COMPREHENSIVE Comments: PATIENT WAS FASTINGPERFORMED BY: LabCoSaint Peter's University HospitalKhziyt0936 [facility] [id number] (47662) ALT (SGPT) 19 [iU]/L (Normal) Range: 0-40 [...] mg/dL (Abnormal) Range: 65-99 :30 LIPID PANEL (87981) Comments: PATIENT WAS FASTINGPERFORMED BY: LabCoSaint Peter's University HospitalMpdzhj4309 [facility] [id number] LDL/HDL Ratio 0.9 {ratio_units} (Normal) Range: 0.0-3.2 [...] note reference interval change :48 Rapid Flu (26431 x 2) Influenza A Ag negative (Normal) [...] redmond M.D.November 05, 2011 at 3:25:08 PM [id number] Signed GP/GP If you are the referring physician and would like to consult with theradiologist who provided this interpretation, please contact Yasmany Pond at [phone]. If this radiologist is unavailable, youwill be directed to another radiologist to assist. If you are a patient with a question regarding this report, ple asecontactyour referring physician directly. Professional Interpretation Provided By: [employer], Phone , These documents contain legally protected [...] redmond M.D.November 05, 2011 at 3:25:08 PM [id number] Signed GP/GP If you are the referring physician and would like to consult with theradiologist who provided this interpretation, please contact Yasmany Pond at [phone]. If this radiologist is unavailable, youwill be directed to another radiologist to assist. If you are a patient with a question regarding this report, ple asecontactyour referring physician directly. Professional Interpretation Provided By: [employer], Phone , These documents contain legally protected [...] on 11/05/111551 Sign by: Misael Hebert MD 78-Ibq-900705:20 METABOLIC PANEL, Comments: PATIENT WAS FASTINGPERFORMED BY: LabHenry [facility] Hospital6370 [facility] [id number] Information: [id number] ORDER NO DRAW F EE COMPREHENSIVE (28222) ALT (SGPT) 31 [iU]/L (Normal) Range: 0-40 [...] Creatinine Clearance Comments: PATIENT WAS FASTINGPERFORMED BY: Cumulus FundingHenry Ford Jackson Hospital6370 [facility] [id number] Information: 10/30@6AM 10/31@730AM Creatinine Clearance 58 mL/min [...] Qn, 24-Hr Comments: PATIENT WAS FASTINGPERFORMED BY: Branded RealitySaint Peter's University HospitalJjfcuo6628 [facility] [id number] Urine Prot,24hr calculated 1023.8 {mg/24_hr} (Abnormal) Range: 30.0-150.0 Protein,Total,Urine 52.5 mg/dL (Abnormal) Range: 0.0-15.0 :04 HgA1C , Office (74158) HgA1C , Office 6.1 % (Normal) Range: [...] regarding this repor t, please call our 64I6jcdurwb line @ Dictated on 07/27/11 1040 by GAYE PEREZ MDscribed on 07/28/111224 by ITS IMPORTSign by AGYE PEREZ MD on 07/28/115 Sign by: GAYE PEREZ MD :54 Vitamin D Hydroxy (25025) Comments: PATIENT WAS FASTINGPERFORMED BY: [employer] LabWolf Pyros Pictures6370 [facility] [id number] Vitamin D, 25-Hydroxy 48.8 ng/mL (Normal) Range: 30.0-100.0 Comments: Vitamin D deficiency has been defined by the [place] of[place] and an Endocrine Society practice guideline as alevel of serum 25-OH vitamin D less than 20 ng/mL (1,2).The Endocrine Society went on to further define vitamin Dinsufficiency as a level between 21 and 29 ng/mL (2).1. IOM ([place] of [employer]). 2010. Dietary reference intakes for calcium and D. [place]: The National Academies Press.2. Mira MF, Rosette LOPEZ, Tommy SWAIN, et al. Evaluation, treatment, and prevention of vitamin D deficiency: an Endocrine Society clinical practice guideline. JCEM. 2010; 96(7):1911-30. :54 LIPID PANEL (29660) Comments: PATIENT WAS FASTINGPERFORMED BY: [employer]6[address] [facility] CenterUpdaterCritical access hospital [id number] LDL/HDL Ratio 1.0 {ratio_units} (Normal) Range: 0.0-3.2 [...] MANUAL DIFF Comments: PATIENT WAS FASTINGPERFORMED BY: [employer] [facility] Fgazyj9358 [facility] [id number] Information: ADD [id number] AND DRAW FEE [id number] (19326) Immature Grans (Abs) 0.0 {x10E3/uL} (Normal) Range: [...] COMPREHENSIVE Comments: PATIENT WAS FASTINGPERFORMED BY: LabCoSaint Peter's University HospitalQlfsxs9875 [facility] [id number] (44506) ALT (SGPT) 48 [iU]/L (Abnormal) Range: 0-40 [...] (Abnormal) Range: 65-99 :18 HgA1C , Office (28080) HgA1C , Office 6.1 % (Normal) Range: 4.6 - 7.1 :18 Blood Glucose , Office (56117) Blood Glucose , Office 103 (Normal) 26-Uov-62555:00 ABDOMEN WITH AND W/O CONTRAST Radiology Report [...] radiologist regarding this report, please call our [id number] line @ Dictated on 03/18/11 1715 by Jennie Pugh MDieTranscribed on 03/22/11 1401 by ITS IMPORTSign by Jeanette Hill MD on 03/22/11 1402 Sign by: Jeanette Pugh MD 54-Xal-540732:29 SERUM CRE & GFR CREAT,SERUM 1.1 mg/dL (Abnormal) Range: 0.6-1.0 25-Vfx-19703:00 BRAIN W/WO CONTRAST Radiology Report See Note [...] seen in the right frontal white matter wood pole treater ior to themasswithout interval change. The cortical [...] on 03/02/111729 Sign by: Donna Martin MD 19-Rdl-34599:00 UPPER EXT. JOINT ONLY(ROUTINE) Radiology Report See [...] on 03/04/11 1035 Sign by: Ankur Duncan 72-Edr-003334:08 SHOULDER,MIN 2 VIEWS Radiology Report See Note [...] 02/01/11 1021 Sign by: ALEJANDRO DRUMMOND DO 71-Uhu-787586:57 SINUS/FACIAL BONE Radiology Report See Note (Normal) [...] 01/19/11 1448 Sign by: Misael Hebert MD 32-Dzl-83781:00 BRAIN W/WO CONTRAST Radiology Report See Note [...] addition, there is a small region of tcjcwetvsE6yzpqhrkqhy along the anterior margin of the mass, [...] on 01/19/111650 Sign by: GAYE PEREZ MD 93-Xig-27949:00 BRAIN/HEAD W/WO CONTRAST Radiology Report See Note [...] 01/19/11 1447 Sign by: Misael Hebert MD 55-Szv-774957:08 BILAT SCRN DIGITAL & CAD Radiology Report [...] RATIO Comments: PATIENT NOT FASTINGPERFORMED BY: LabCoSaint Peter's University HospitalOqdwsm6345 [facility] [id number] (68493) AND (67124) Microalb/Creat Ratio 1028.4 {mg/g_creat} (Abnormal) Range: 0.0-30.0 Microalbumin, Urine 1341.0 ug/mL (Abnormal) Range: 0.0-17.0 Creatinine, Urine 130.4 mg/dL (Normal) Range: 15.0-278.0 :20 CBC WITH MANUAL DIFF (65348) Comments: PATIENT NOT FASTINGPERFORMED BY: EVE LabCoSaint Peter's University HospitalFrtesi4057 [facility] [id number] Immature Grans (Abs) 0.0 {x10E3/uL} (Normal) Range: [...] {x10E3/uL} (Normal) Range: 4.0-10.5 :20 LIPID PANEL (13226) Comments: PATIENT NOT FASTINGPERFORMED BY: [employer]6370 [facility] [id number] LDL/HDL Ratio 0.9 {ratio_units} (Normal) Range: 0.0-3.2 [...] PANEL, COMPREHENSIVE Comments: PATIENT NOT FASTINGPERFORMED BY: [employer]70 [facility] [id number] (46861) ALT (SGPT) 28 [iU]/L (Normal) Range: 0-40 [...] (Abnormal) Range: 65-99 :39 HgA1C , Office (01699) HgA1C , Office 6.5 % (Normal) Range: 4.6 - 7.1 :39 Blood Glucose , Office (90332) Blood Glucose , Office 128 (Normal) :19 CBC With Differential/Platelet Comments: PATIENT WAS FASTINGPERFORMED BY: LabCo Tpuvrx8087 [facility] [id number] Immature Grans (Abs) 0.0 {x10E3/uL} (Normal) Range: [...] 3.80-5.10 WBC 5.6 {x10E3/uL} (Normal) Range: 4.0-10.5 4-Psx-244612:19 Comp. Metabolic Panel (14) Comments: PATIENT WAS FASTINGPERFORMED BY: LabCoSaint Peter's University HospitalGldlph0624 [facility] [id number]; appt 01/11/11 ALT (SGPT) 18 [iU]/L (Normal) [...] Glucose, Serum 113 mg/dL (Abnormal) Range: 65-99 8-Rkj-225232:19 Lipid Panel With LDL/HDL Comments: PATIENT WAS FASTINGPERFORMED BY: [employer]6370 [facility] [id number] Ratio LDL/HDL Ratio 1.0 {ratio_units} Range: 0.0-3.2 [...] 0.800 {uIU/mL} Comments: PATIENT WAS FASTINGPERFORMED BY: [employer] Usxflk4586 [facility] [id number] 2:19 (Normal) Range: 0.450-4.500 Vitamin D, 25-Hydroxy 44.0 ng/mL (Normal) Comments: PATIENT WAS FASTINGPERFORMED BY: [employer] Fwsxak5725 [facility] [id number] 2:19 Range: 32.0-100.0 Comments: Effective February 22, 2011 Vitamin D, 25-Hydroxy reference intervals will be changing to 30-100. .Recent studies consider the lower li sandra of 32.0 ng/mL to be athreshold for optimal health.Otf HAYES. J Nutr. 2004;135(2):317-22. :54 HgA1C , Office (63377) HgA1C , Office 6.6 % (Normal) Range: 4.6 - 7.1 :54 Blood Glucose , Office (33241) Blood Glucose , Office 134 (Normal) :40 Creatinine Clearance Comments: PERFORMED BY: [employer] Cgmpso5809 [facility] [id number] Information: 10/07@7AM 10/08@3AM Creatinine Clearance 56 mL/min [...] Creatinine, Serum 1.21 mg/dL (Abnormal) Range: 0.57-1.00 0-Lll-411900:40 Protein Total, Qn, 24-Hr Comments: PERFORMED BY: [employer] Frijbl2101 [facility] [id number] Urine Prot,24hr calculated 610.5 {mg/24_hr} (Abnormal) Range: 30.0-150.0 Protein,Total,Urine 40.7 mg/dL (Abnormal) Range: 0.0-15.0 :46 Vitamin D Hydroxy (95999) Comments: PATIENT WAS FASTINGPERFORMED BY: [employer] Elouxs1915 [facility] [id number] Vitamin D, 25-Hydroxy 36.5 ng/mL (Normal) Range: 32.0-100.0 Comments: Recent studies consider the lower limit of 32.0 ng/mL to be athreshold for optimal health.Otf HAYES. J Nutr. 2004;135(2):317-22. :46 METABOLIC PANEL, COMPREHENSIVE Comments: PATIENT WAS FASTINGPERFORMED BY: [employer] Khrmpy0633 [facility] [id number] (94890) ALT (SGPT) 34 [iU]/L (Normal) Range: 0-40 [...] Glucose, Serum 116 mg/dL (Abnormal) Range: 65-99 1-Fot-148296:46 LIPID PANEL (89102) Comments: PATIENT WAS FASTINGPERFORMED BY: LabCoSaint Peter's University HospitalLdywzz5737 [facility] [id number] LDL Cholesterol Calc 85 mg/dL (Normal) Range: 0-99 LDL/HDL Ratio 1.2 {ratio_units} (Normal) Range: 0.0-3.2 VLDL Cholesterol Cesar 28 mg/dL (Normal) Range: 5-40 HDL Cholesterol 69 mg/dL (Normal) Comments: According to ATP-III Guidelines, HDL-C >59 mg/dL is considered anegative risk factor for CHD. Cholesterol, Total 182 mg/dL (Normal) Range: 100-199 Triglycerides 141 mg/dL (Normal) Range: 0-149 2-Rbv-447783:46 CBC WITH MANUAL DIFF Comments: PATIENT WAS FASTINGPERFORMED BY: LabCo Oxcbug3742 [facility] [id number] Information: [id number]; appt 10/12/10 (73518) Immature Grans (Abs) 0.0 {x10E3/uL} (Normal) Range: [...] (Normal) Range: 4.0-10.5 :07 HgA1C , Office (48024) HgA1C , Office 6.6 % (Normal) Range: 4.6 - 7.1 :07 Blood Glucose , Office (86060) Blood Glucose , Office 114 (Normal) 90-Evz-009026:00 Creatinine Clearance Comments: PERFORMED BY: Paragonix TechnologiesCritical access hospital [id number] Information: 12/31@8AM 01/01@4AM Creatinine Clearance 48 mL/min [...] Creatinine, Serum 1.20 mg/dL (Abnormal) Range: 0.57-1.00 96-Nbw-476029:00 Protein Total, Qn, 24-Hr Comments: PERFORMED BY: [employer]6370 [facility] CenterUpdaterCritical access hospital [id number] Urine Prot,24hr calculated 1070.6 {mg/24_hr} (Abnormal) Range: 30.0-150.0 Protein,Total,Urine 79.3 mg/dL (Abnormal) Range: 0.0-15.0 22-Jkl-785926:48 BILAT SCRN DIGITAL & CAD Radiology Report See Note (Normal) Comments: Exam Number: [id number] MAMMOGRAPHY - BILATERAL SCREENING INDICATION:Routine annual screening [...] of attaching a ResultCode to this exam.ADDENDUM: [id number] HPBI/MDS Reported By: MISAEL HEBERT 39-Mvl-663193:48 DEXA BONE DENSITY STUDY (HP) Radiology Report See Note (Normal) Comments: Exam Number: [id number] CLINICAL:This is a 69-year-old female patient with postmenopausal screening. EXAMINATION:DUAL ENERGY X-RAY ABSORPTIOMETRY / DEXA. TECHNIQUE:Bone Density Measurements (BMD) of lumb ar spine and bilateral hipswere obtained using a [employer] scanner.. COMPARISON:None. FINDINGS: Lumbar Spine (L1-L4): g/cm2 [...] Osteoporosis Foundation http://www.nof.org Reported By: MISAEL HEBERT 84-Ikx-387025:29 HgA1C , Office (36432) HgA1C , Office 6.5 % (Normal) Range: 4.6 - 7.1 09-Vba-575163:29 Blood Glucose , Office (58076) Blood Glucose , Office 109 (Normal) 50-Yuu-03037:05 CBC With Differential/Platelet Comments: PATIENT WAS FASTINGPERFORMED BY: LabCoSaint Peter's University HospitalFlowxi9590 [facility] [id number] Immature Grans (Abs) 0.0 {x10E3/uL} (Normal) Range: [...] 3.80-5.10 WBC 3.9 {x10E3/uL} (Abnormal) Range: 4.0-10.5 08-Hkn-91844:05 Comp. Metabolic Panel (14) Comments: PATIENT WAS FASTINGPERFORMED BY: LabCoSaint Peter's University HospitalTyjivi6301 [facility] [id number] ALT (SGPT) 20 [iU]/L (Normal) Range: 0-40 [...] With LDL/HDL Comments: PATIENT WAS FASTINGPERFORMED BY: [employer] LabWolf Pyros Pictures6370 [facility] [id number] Ratio HDL Cholesterol 54 mg/dL (Normal) Comments: [...] ng/mL (Normal) Comments: PATIENT WAS FASTINGPERFORMED BY: [employer] [facility] Twgbzm0606 [facility] [id number] :05 Range: 32.0-100.0 Comments: Recent studies consider the lower limit of 32.0 ng/mL to be athreshold for optimal health.Otf HAYES. J Nutr. 2004;135(2):317-22. :41 SPLEEN (HP) Radiology Report See Note (Normal) Comments: Exam Number: [id number] ULTRASOUND OF THE SPLEEN A goal directed [...] Protein, 0.5 mg/L (Normal) Comments: PERFORMED BY: [employer] Jvluwi0177 [facility] [id number] 10:54 Quant Range: 0.0-4.9 17-Jun-2009 Hemoglobin A1c 6.3 % (Abnormal) Comments: PERFORMED BY: [employer] Uvbkkb7892 [facility] [id number] 10:54 Range: 4.8-5.6 Comments: Increased risk for diabetes: 5.7 - 6.4Diabetes: >6.4Glycemic control for adults with diabetes: <7.0.Please note reference interval change 17-Jun-2009 Sedimentation 4 mm/h (Normal) Comments: PERFORMED BY: [employer] Cdazys8909 [facility] [id number] 10:54 Rate-Westergren Range: 0-30 17-Jun-2009 Vitamin B12 1372 pg/mL Comments: PERFORMED BY: [employer] Bscivu2377 [facility] [id number] 10:54 (Abnormal) Range: 211-911 Comments: Effective July 14, 2009, Vitamin B12 will bechanging to the [place] ECLIA methodology. Thereference interval will be changing to:211 - 946 pg/mL 17-Jun-2009 Vitamin D, 25-Hydroxy 37.7 ng/mL Comments: PERFORMED BY: [employer] Wrcrne0586 [facility] [id number] 10:54 (Normal) Range: 32.0-100.0 Comments: Recent studies consider the lower limit of 32.0 ng/mL to be athreshold for optimal health.Otf HAYES. J Nutr. 2004;135(2):317-22. 10-Wur-605608:34 Vitamin D Hydroxy Comments: PATIENT NOT FASTINGPERFORMED BY: LabCo Najvqc8724 [facility] [id number] Information: [id number],2ND ORDER NO DRAW F EE (85968) Vitamin D, 25-Hydroxy 48.5 ng/mL (Normal) Range: 30.0-100.0 Comments: Vitamin D deficiency has been defined by the [place] of[place]icine and an Endocrine Society practice guideline as alevel of serum 25-OH vitamin D less than 20 ng/mL (1,2).The Endocrine Society went on to further define vitamin Dinsufficiency as a level between 21 and 29 ng/mL (2).1. IOM ([place] [employer]). 2010. Dietary reference intakes for calcium and D. [place]: The National Academies Press.2. Mira MF, Rosette LOPEZ, Tommy SWAIN, et al. Evaluation, treatment, and prevention of vitamin D deficiency: an Endocrine Society clinical practice guideline. JCEM. 2010; 96(7):1911-30. :50 HgA1C , Office (61930) HgA1C , Office 6.7 % (Normal) Range: 4.6 - 7.1 :50 Blood Glucose , Office (52877) Blood Glucose , Office 117 (Normal) 18-Kib-413628:12 CBC With Differential/Platelet Comments: PERFORMED BY: [facility]Henry [facility]6370 [facility] [id number] Information: 06/10@6AM3/10@330AM Hematology Comments: Note: (Normal) Comments: [...] 3.80-5.10 WBC 3.6 {x10E3/uL} (Abnormal) Range: 4.0-10.5 67-Wiw-716059:12 Comp. Metabolic Panel (14) Comments: PERFORMED BY: [facility]6370 [facility] [id number] Alkaline Phosphatase, S 68 [iU]/L (Normal) Range: [...] Glucose, Serum 124 mg/dL (Abnormal) Range: 65-99 82-Gyy-079931:12 Creatinine Clearance Comments: PERFORMED BY: Paragonix TechnologiesCritical access hospital [id number] Creatinine Clearance 49 mL/min (Abnormal) Range: 88-128 Comments: The above range is based on 1.73 square meter average body surfacearea. Creatinine, Ur 24hr 800.0 {mg/24_hr} (Normal) Range: 800.0-1800.0 Creatinine, Urine 40.0 mg/dL (Normal) Range: 15.0-278.0 95-Yeq-777390:12 Lipid Panel With LDL/HDL Comments: PERFORMED BY: Paragonix TechnologiesCritical access hospital [id number] Ratio HDL Cholesterol 61 mg/dL (Normal) Comments: According to ATP-III Guidelines, HDL-C >59 mg/dL is considered anegative risk factor for CHD. LDL Cholesterol Calc 74 mg/dL (Normal) Range: 0-99 LDL/HDL Ratio 1.2 {ratio_units} (Normal) Range: 0.0-3.2 VLDL Cholesterol Cesar 17 mg/dL (Normal) Range: 5-40 Cholesterol, Total 152 mg/dL (Normal) Range: 100-199 Triglycerides 87 mg/dL (Normal) Range: 0-149 63-Imm-238699:12 Protein Total, Qn, 24-Hr Comments: PERFORMED BY: Paragonix TechnologiesCritical access hospital [id number] Urine Prot,24hr calculated 1172.0 {mg/24_hr} Range: 30.0-150.0 (Abnormal) Protein,Total,Urine 58.6 mg/dL (Abnormal) Range: 0.0-15.0 TSH 1.280 {uIU/mL} Comments: PERFORMED BY: Branded RealitySaint Peter's University HospitalDjkcti5283 [facility] [id number] 1:12 (Normal) Range: 0.450-4.500 :58 HgA1C , Office (90958) HgA1C , Office 6.0 % (Normal) Range: 4.6 - 7.1 :58 Blood Glucose , Office (27222) Blood Glucose , Office 113 (Normal) :03 CBC With Differential/Platelet Comments: PATIENT WAS FASTINGPERFORMED BY: Branded RealitySaint Peter's University HospitalPnghjl9075 [facility] [id number] Baso (Absolute) 0.0 {x10E3/uL} (Normal) Range: 0.0-0.2 [...] (14) Comments: PATIENT WAS FASTINGPERFORMED BY: LabCoSaint Peter's University HospitalNkzdzw4480 [facility] [id number] A/G Ratio 2.0 (Normal) Range: 1.1-2.5 Albumin, [...] Glucose, Serum 116 mg/dL (Abnormal) Range: 65-99 9-Bur-280592:03 Lipid Panel With LDL/HDL Comments: PATIENT WAS FASTINGPERFORMED BY: [employer]70 WellAware HoldingsCritical access hospital [id number] Ratio Cholesterol, Total 167 mg/dL (Normal) Range: [...] ng/mL (Normal) Comments: PATIENT WAS FASTINGPERFORMED BY: [employer]6370 WellAware HoldingsCritical access hospital [id number] :03 Range: 32.0-100.0 Comments: Recent studies consider the lower limit of 32.0 ng/mL to be athreshold for optimal health.Otf HAYES. J Nutr. 2004;135(2):317-22. 74-Rnk-638704:32 Urinalysis, Office (55516) UA - BILIRUBIN Negative (Normal) UA - BLOOD Hemolyzed Trace (Normal) UA - GLUCOSE Negative (Normal) UA - KETONES Negative mg/dL (Normal) UA - LEUKOCYTE ESTERASE Negative (Normal) UA - NITRITE Negative (Normal) UA - PH 6.5 (Normal) UA - PROTEIN 300 mg/dL (Normal) UA - SPECIFIC GRAVITY 1.020 (Normal) URINE UROBILINGN JATINDER TIMED 2 mg/dL (Normal) 2-Iln-022003:19 URINE SETH CULTURE-JATINDER COL Comments: PATIENT NOT FASTINGClinical Information: SRC:UR ADD [id number] PERFORMED BY: [employer] [facility] [id number] COUNT (87811) Result 1 ECV (Normal) Comments: Escherichia coli, [...] report (Normal) Culture,Comprehensiv e 09-Jan-20098:17 Urinalysis, Office (30585) UA - BILIRUBIN Negative (Normal) UA - BLOOD Hemolyzed Large (Normal) UA - GLUCOSE Negative (Normal) UA - KETONES Negative mg/dL (Normal) UA - LEUKOCYTE ESTERASE Moderate (Normal) UA - NITRITE Negative (Normal) UA - PH 7.0 (Normal) UA - PROTEIN 300 mg/dL (Normal) UA - SPECIFIC GRAVITY 1.020 (Normal) URINE UROBILINGN JATINDER TIMED 2 mg/dL (Normal) 1-Trn-076646:05 Comp. Metabolic Panel (14) Comments: PATIENT WAS FASTINGPERFORMED BY: LabCoSaint Peter's University HospitalBgnvrd3676 [facility] [id number] A/G Ratio 1.7 (Normal) Range: 1.1-2.5 Albumin, [...] Panel (7) Comments: PATIENT WAS FASTINGPERFORMED BY: PrivacyStarox kooldinerUNC Health Rockingham [id number] Bilirubin, Direct 0.12 mg/dL (Normal) Range: 0.00-0.40 :05 Lipid Panel With LDL/HDL Comments: PATIENT WAS FASTINGPERFORMED BY: PrivacyStarSaint Alexius Hospital [id number] Ratio Cholesterol, Total 170 mg/dL (Normal) Range: [...] mg/dL (Normal) Comments: PATIENT WAS FASTINGPERFORMED BY: [employer] [facility] [id number] :05 Range: 2.5-4.5 PTH, Intact 19 pg/mL (Normal) Comments: PATIENT WAS FASTINGPERFORMED BY: [employer] [facility] [id number] :05 Range: 15-65 Vitamin D, 25-Hydroxy 38.9 ng/mL (Normal) Comments: PATIENT WAS FASTINGPERFORMED BY: [facility]6370 [facility] [id number] :05 Range: 32.0-100.0 Comments: Recent studies consider the lower limit of 32.0 ng/mL to be athreshold for optimal health.Otf HAYES. J Nutr. 2004;135(2):317-22. :40 HgA1C , Office (46528) HgA1C , Office 6.0 % (Normal) Range: 4.6 - 7.1 :40 Blood Glucose , Office (95276) Blood Glucose , Office 109 (Normal) :42 CBC With Differential/Platelet Comments: PATIENT WAS FASTINGPERFORMED BY: [facility]6370 [facility] [id number] Baso (Absolute) 0.0 {x10E3/uL} (Normal) Range: 0.0-0.2 [...] 11.7-15.0 WBC 4.2 {x10E3/uL} (Normal) Range: 4.0-10.5 20-Nzy-084225:42 Comp. Metabolic Panel (14) Comments: PATIENT WAS FASTINGPERFORMED BY: LabCoSaint Peter's University HospitalHxniix2007 [facility] [id number] A/G Ratio 1.6 (Normal) Range: 1.1-2.5 Albumin, [...] OCCULT HGB ASSAY, QUAL, 1-3 SIMULTANEOUS DETERMINATIONS (37975) FECAL OCCULT HGB ASSAY, QUAL, 1-3 SIMULTANEOU neg (Normal) :42 Microscopic Examination Comments: PATIENT WAS FASTINGPERFORMED BY: Paragonix TechnologiesCritical access hospital [id number] Bacteria None seen (Normal) Cast Type Hyaline casts (Normal) Casts Present {/lpf} (Abnormal) Epithelial Cells (non renal) 0-10 {/hpf} (Normal) Range: 0 - 10 Mucus Threads Present (Normal) RBC 0-3 {/hpf} (Normal) Range: 0 - 3 WBC 0-5 {/hpf} (Normal) Range: 0 - 5 :42 URINALYSIS W/O MICRO (00575) Comments: PATIENT WAS FASTINGPERFORMED BY: Paragonix TechnologiesCritical access hospital [id number] Appearance Clear (Normal) Bilirubin Negative (Normal) Glucose Negative (Normal) Ketones Negative (Normal) Microscopic Examination See below: (Normal) Nitrite, Urine Negative (Normal) Occult Blood Negative (Normal) pH 5.0 (Normal) Range: 5.0-7.5 Protein 1+ (Abnormal) Specific False Pass 1.013 (Normal) Range: 1.005-1.030 Urine-Color Yellow (Normal) Urobilinogen,Semi-Qn 0.2 mg/dL (Normal) Range: 0.0-1.9 WBC Esterase 1+ (Abnormal) :42 MICROALBUMIN: CREATININE RATIO Comments: PATIENT WAS FASTINGPERFORMED BY: Paragonix TechnologiesCritical access hospital [id number] (03598) AND (29506) Creatinine, Urine 76.1 mg/dL (Normal) Range: 15.0-278.0 Microalb/Creat Ratio 292.1 {ug/mg_creat} (Abnormal) Range: 0.0-30.0 Microalbumin, Urine 222.3 ug/mL (Abnormal) Range: 0.0-17.0 :42 CBC WITH MANUAL DIFF (19519) Comments: PATIENT WAS FASTINGClinical Information: ADD DRAW FEE [id number] ADD J [id number] PERFORMED BY: EVE [employer]70 [facility] [id number] Baso (Absolute) 0.0 {x10E3/uL} (Normal) Range: 0.0-0.2 [...] PANEL, COMPREHENSIVE Comments: PATIENT WAS FASTINGPERFORMED BY: [employer] FundingCo Pdfjfk7456 [facility] [id number] (17573) A/G Ratio 1.8 (Normal) Range: 1.1-2.5 Albumin, [...] Sodium, Serum 141 mmol/L (Normal) Range: 135-145 7-Uql-675945:23 HgA1C , Office (17938) HgA1C , Office 6.0 % (Normal) Range: 4.6 - 7.1 9-Rki-378900:23 Blood Glucose , Office (65685) Blood Glucose , Office 103 (Normal) 53-Dwy-244862:38 CBC WITH MANUAL DIFF (52948) Comments: PATIENT WAS FASTINGClinical Information: ADD DRAW FEE [id number] ADD J [id number] PERFORMED BY: EVE LabCoSaint Peter's University HospitalBmhrsq4236 [facility] [id number] Baso (Absolute) 0.0 {x10E3/uL} (Normal) Range: 0.0-0.2 [...] 11.7-15.0 WBC 4.0 {x10E3/uL} (Normal) Range: 4.0-10.5 92-Lqb-952108:38 METABOLIC PANEL, COMPREHENSIVE Comments: PATIENT WAS FASTINGPERFORMED BY: Cum[employer] FundingCoSaint Peter's University HospitalLintjn4731 [facility] [id number] (03843) A/G Ratio 1.8 (Normal) Range: 1.1-2.5 Albumin, [...] Sodium, Serum 142 mmol/L (Normal) Range: 135-145 57-Miv-532691:38 HEPATIC FUNCTION PANEL Comments: PATIENT WAS FASTINGPERFORMED BY: [employer] LabCoShadow HealthHbhltg0647 [facility] [id number] (95913) Bilirubin, Direct 0.08 mg/dL (Normal) Range: 0.00-0.40 69-Dls-189604:38 LIPID PANEL (52994) Comments: PATIENT WAS FASTINGPERFORMED BY: [employer] [facility] Ebopbn9402 [facility] [id number] Cholesterol, Total 200 mg/dL (Abnormal) Range: 100-199 [...] (Normal) Range: 5-40 :36 HgA1C , Office (63638) HgA1C , Office 6.1 % (Normal) Range: 4.6 - 7.1 :36 Blood Glucose , Office (11454) Blood Glucose , Office 98 (Normal) :33 CBC With Differential/Platelet Comments: PATIENT WAS FASTINGClinical Information: SRC:UR PERFORMED BY: [facility] Idytaf8583 [facility] [id number] Baso (Absolute) 0.0 {x10E3/uL} (Normal) Range: 0.0-0.2 [...] 11.7-15.0 WBC 4.8 {x10E3/uL} (Normal) Range: 4.0-10.5 09-Jtg-110763:33 Comp. Metabolic Panel (14) Comments: PATIENT WAS FASTINGPERFORMED BY: LabCoSaint Peter's University HospitalPxrgmg3132 [facility] [id number] A/G Ratio 1.6 (Normal) Range: 1.1-2.5 Albumin, [...] Serum 92 mg/dL (Normal) Range: 65-99 If -[place] 57 mL/min/1.73 Comments: Note: Persistent reduction for [...] With LDL/HDL Comments: PATIENT WAS FASTINGPERFORMED BY: Branded RealitySaint Peter's University HospitalDvyugw1454 [facility] [id number] Ratio Cholesterol, Total 174 mg/dL (Normal) Range: [...] Urine Culture,Comprehensive Comments: PATIENT WAS FASTINGPERFORMED BY: LabTTS PharmaSaint Peter's University HospitalWpyjyt7898 [facility] [id number] Antimicrobial MIHEAD (Normal) Comments: S = Susceptible; [...] Enterococcus. (Normal) Urine Final report (Normal) Culture,Comprehensive 1-Ymz-673936:10 HgA1C , Office (03088) HgA1C , Office 5.9 % (Normal) Range: [...] mL (Normal) URINE PROTEIN 20.0 mg/dL (Abnormal) [id number] Urine Culture,Comprehensive Comments: Clinical Information: SRC:UR PERFORMED BY: [facility]6370 [facility] [id number] Result 1 CNSNSS (Normal) Comments: Coagulase negative Staphylococcus species, not Staphylococcussaprophyticus.600 Colonies/mLSusceptibility or resistance of staphylococci to oxacillin predictssusceptibility or resistance to (a) other be cb-fjpqoahsw-qeajjztdfhsrzoopj such as cloxacillin and dicloxacillin, (b) combinationsof a penicillin and a beta-lactamase inhibitor, and(c) anti- staphylococcal cephalosporins. Routine testing of otherp enicillins, beta-lactam/beta-lactamase inhibitor combinations,cephems, and carbapenems is not advised by the CLSI Standards(H533-S14, 2005). S = Susceptible; I = Intermediate; R = Resistant * P = Positive; N = Negative MICS are expressed in micrograms per mL Antibiotic RSLT#1 RSLT#2 RSLT#3 RSLT#4Ciprofloxacin RGentami kristian SLevofloxacin RNitrofurantoin SOxacillin SPenicillin RRifampin STrimethoprim/Sulfa SVancomycin S Urine Final report Culture,Comprehensi (Normal) ve :53 Metabolic Panel, Basic (20459) Comments: PATIENT NOT FASTINGClinical Information: ADD DRAW FEE [id number] ADD J 34574 PERFORMED BY: [facility] Adddwn2041 [facility] [id number] BUN 39 mg/dL (Abnormal) Range: 5-26 BUN/Creatinine Ratio 33 (Abnormal) Range: 8-27 Calcium, Serum 9.8 mg/dL (Normal) Range: 8.5-10.6 Carbon Dioxide, Total 22 mmol/L (Normal) Range: 20-32 Chloride, Serum 103 mmol/L (Normal) Range: 97-108 Creatinine, Serum 1.20 mg/dL (Abnormal) Range: 0.57-1.00 Glom Filt Rate, Est 45 mL/min/1.73 Range: 60-128 (Abnormal) Glucose, Serum 101 mg/dL (Abnormal) Range: 65-99 If -[place] 55 mL/min/1.73 Range: 60-128 (Abnormal) Comments: Note: Persistent reduction for 3 months or more in an eGFR<60 mL/min/1.73 m2 defines CKD. Patients with eGFR values>/=60 mL/min/1.73 m2 may also have CKD if evidence of persistentproteinuria is present. Additional information may be found [email or web address]. Potassium, Serum 5.1 mmol/L (Normal) Range: 3.5-5.2 Sodium, Serum 139 mmol/L (Normal) Range: 135-145 :09 HgA1C , Office (67069) HgA1C , Office 6.1 % (Normal) Range: 4.6 - 7.1 :09 Blood Glucose , Office (58456) Blood Glucose , Office 163 (Normal) :37 SPINE,LUMBAR (ROUTINE) Radiology Report See Note (Normal) Comments: Exam Number: [id number] MRI LUMBAR SPINE CLINICAL STATEMENTLow back pain [...] onboth sides. Reported By: MODESTA COPE M.D. 22-Hyp-258594:00 BILAT SCRN DIGITAL & CAD Radiology Report See Note (Normal) Comments: Exam Number: [id number] MAMMOGRAM, BILATERAL SCREENING DIGITAL AND CAD HISTORYRoutine screening. Full field digital images were obtained in mediolateral oblique andcraniocaudal projections. CAD images w ere reviewed. The current study [facility]. A small metal marker is placed [...] mammograms werealso examined with computer-aided detection software ([employer], [employer], [employer].). Reported By: DONNA OJEDA M.D. 29-Lef-960911:59 DEXA BONE DENSITY STUDY () Radiology Report See Note (Normal) Comments: Exam Number: [id number] BONE DENSITOMETRY HISTORYPost menopausal. TECHNIQUE Bone densitometry [...] Report See Note (Normal) Comments: Exam Number: [id number] FIVE VIEW LUMBAR SPINE AP, lateral, both [...] By: MAIRA GARZA M.D. :19 [facility]al[facility]Creat [facility] Comments: PATIENT NOT FASTINGPERFORMED BY: [facility]CoSaint [facility] HospitalYxvcqf1047 [facility] [id number] Creatinine, Urine 46.8 mg/dL (Normal) Microalb/Creat Ratio 712.8 {ug/mg_creat} (Abnormal) Range: 0.0-30.0 Microalbum.,U,Random 333.6 ug/mL (Abnormal) Range: 0.0-17.0 :13 Creatinine Clearance Comments: PATIENT NOT FASTINGClinical Information: HT-5'4'' WT-184 PERFORMED BY: EVE Branded RealitySaint [facility] HospitalAypnxa3455 [facility] [id number] Creatinine Clearance 40 mL/min (Abnormal) Range: 88-128 Comments: The above range is based on 1.73 square meter average body surfacearea. Creatinine, Serum 1.30 mg/dL (Normal) Range: 0.50-1.50 Creatinine, Ur 24hr 754.8 {mg/24_hr} Range: 800.0-1800.0 (Abnormal) Creatinine, Urine 44.4 mg/dL (Normal) Glom Filt Rate, Est 41 mL/min (Abnormal) Range: 60-128 If -[place] 50 mL/min (Abnormal) Range: 60-128 Comments: Note: Persistent reduction for 3 months or more in an eGFR<60 mL/min/1.73 m2 defines CKD. Patients with eGFR values>/=60 mL/min/1.73 m2 may also have CKD if evidence of persistentproteinuria is present. .Additional information may be found at [email or web address].org. :13 Protein Total, Qn, 24-Hr Comments: PATIENT NOT FASTINGPERFORMED BY: Branded RealitySaint [facility] HospitalWzwxmr6806 [facility] [id number] Urine Protein,Total,Urine 49.0 mg/dL (Abnormal) Range: 0.0-15.0 Prt, 24hr calculated 833.0 {mg/24_hr} (Abnormal) Range: 30.0-150.0 02-Obc-560310:00 CBCD,SMEAR DIFF CELLS COUNTED 100 (Normal) EOS [...] T PROT 6.6 g/dL (Normal) Range: 6.4-8.2 17-Prv-402206:00 D BILI 0.06 mg/dL (Normal) Range: 0.00-0.30 99-Apj-068658:00 LIPID CHOL 175 mg/dL (Normal) Comments: <200 [...] mg/dL VLDL 12 mg/dL (Normal) Range: 5-40 60-Git-608514:00 TSH 0.84 {uIU/mL} (Normal) Range: 0.34-4.82 Plan [...] of skin Planned Observations Vitamin D Hydroxy (55275)Indication: Vitamin D deficiency On: : Request URINALYSIS, W/ MICRO (46073)Indication: Chronic kidney disease, stage 3 On: : Request LIPID PANEL (69188)Indication: Mixed hyperlipidemia On: : Request CBC W/AUTO DIFF WBC (90891)Indication: Chronic kidney disease, stage 3 On: :25 Request METABOLIC PANEL, COMPREHENSIVE (55198)Indication: Chronic kidney disease, stage 3 On: :25 Request HGB A1C (22637)Indication: Diabetes mellitus type II, controlled On: 17-Bap-332955:24 Request Parathyroid Hormone-related Peptide (PTH-rP) (61668)Indication: Vitamin D deficiency On: 1-Fxg-107597:43 Request Comments: send results to Dr. Santana fax: [phone] VITAMIN D, 1, 25-DIHYDROXY (84983)Indication: Vitamin D deficiency On: 5-Zzj-987842:42 Request Comments: send results to Dr. Santana fax: [phone] Clostridium difficile Toxin A+B, EIA (50605)Indication: Chronic diarrhea On: 2-Xgs-417713:36 Request Vitamin D Hydroxy (99486)Indication: Osteopenia On: 9-Yfi-712973:20 Request CBC W/AUTO DIFF WBC (19003)Indication: Hypertension, benign On: 9-Pad-919609:16 Request CALCIFEDIOL (95058)Indication: Chronic kidney disease, stage 3 On: :04 Request Renal function Panel (77145)Indication: Chronic kidney disease, stage 3 On: :04 Request Magnesium (57591)Indication: Chronic kidney disease, stage 3 On: :04 Request MICROALBUMIN: CREATININE RATIO (84277) AND (15619)Indication: Chronic kidney disease, stage 3 On: :04 Request Parathyroid Hormone-related Peptide (PTH-rP) (20216)Indication: Chronic kidney disease, stage 3 On: :04 Request T4, FREE (THYROXINE) (63538)Indication: Cold feeling On: :31 Request TSH (31092)Indication: Cold feeling On: :31 Request PARATHORMONE (56065)Indication: Chronic kidney disease, stage 3 On: :18 Request Comments: copy to Dr. Santana [phone] CALCIFIDIOL (39274) VIT D 25Indication: Chronic kidney disease, stage 3 On: :16 Request Comments: copy to Dr. Santana [phone] MAGNESIUM (39454)Indication: Chronic kidney disease, stage 3 On: :15 Request Comments: copy to Dr. Santana [phone] PROTEIN/CREAT RATIO, URINE (37564)Indication: Chronic kidney disease, stage 3 On: :15 Request Comments: copy to Dr. Santana [phone] LIPID PANEL (53243)Indication: Mixed hyperlipidemia On: :21 Request CBC with auto diff (05318)Indication: Diabetes mellitus type II, controlled On: 34-Swo-417434:20 Request METABOLIC PANEL, COMPREHENSIVE (58318)Indication: Diabetes mellitus type II, controlled On: 77-Ure-384285:20 Request HGB A1C (01858)Indication: Diabetes mellitus type II, controlled On: :10 Request Vitamin D Hydroxy (58757)Indication: Osteopenia On: :08 Request TSH (THYROID STIMULATING HORMONE) (62895)Indication: Depression On: 37-Bls-708055:06 Request LIPID PANEL (16153)Indication: Other and unspecified hyperlipidemia On: :06 Request CBC with auto diff (53721)Indication: Diabetes mellitus type II, controlled On: 86-Ias-200373:06 Request METABOLIC PANEL, COMPREHENSIVE (50816)Indication: Diabetes mellitus type II, controlled On: 77-Rht-148239:06 Request CREATININE CLEARANCE (38306)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 On: 4-Hff-071669:38 Request Total Protein,24 Hour Urine (10609)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 On: 4-Nkn-019605:38 Request CBC W/AUTO DIFF WBC (17262)Indication: Diabetes mellitus type II, controlled On: 97-Elq-155638:11 Request HgA1C , Office (95013)Indication: Diabetes mellitus type II, controlled On: 97-Ylw-745906:23 Request CULTURE, SPUTUM (88471)Indication: Cough On: 54-Avg-487206:47 Request HEPATIC FUNCTION PANEL (23782)Indication: Elevated LFTs On: 63-Okx-51344:24 Request CREATININE CLEARANCE (80603)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 On: :33 Request 24 hour urine for Protein (23467)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 On: :33 Request CBC WITH MANUAL DIFF (01924)Indication: Diabetes mellitus type II, controlled On: :29 Request METABOLIC PANEL, COMPREHENSIVE (86355)Indication: Diabetes mellitus type II, controlled On: :29 Request LIPID PANEL (65335)Indication: Mixed hyperlipidemia On: :29 Request CREATININE CLEARANCE (84464)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 On: 6-Ilk-074165:45 Request 24 hour urine for Protein (15081)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 On: 6-Dzu-810062:45 Request CREATININE CLEARANCE (61861)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 On: 36-Lzk-310707:57 Request 24 hour urine for Protein (11349)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 On: 85-Pzj-391023:57 Request METABOLIC PANEL, COMPREHENSIVE (49423)Indication: Hypertension, benign On: :32 Request LIPID PANEL (35916)Indication: Mixed hyperlipidemia On: 82-Iek-88372:32 Request C-REACTIVE PROTEIN (93223)Indication: Fatigue On: :24 Request SED RATE ERYTHROCYTE (56600)Indication: Headache On: :24 Request VITAMIN B-12 (CYANOCOBALAMIN) (37350)Indication: Fatigue On: :24 Request LIPID PANEL (22006)Indication: Mixed hyperlipidemia On: :41 Request CBC WITH MANUAL DIFF (67304)Indication: Hypertension, benign On: :41 Request METABOLIC PANEL, COMPREHENSIVE (23335)Indication: Hypertension, benign On: :41 Request CREATININE CLEARANCE (56597)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 On: :34 Request 24 hour urine for Protein (57981)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 On: :34 Request LIPID PANEL (04395)Indication: Mixed hyperlipidemia On: :22 Request HEPATIC FUNCTION PANEL (95953)Indication: Mixed hyperlipidemia On: :22 Request Vitamin D Hydroxy (14605)Indication: Hypercalcemia On: :22 Request PHOSPHORUS (34190)Indication: Hypercalcemia On: 8-Oav-198907:22 Request PARATHORMONE (33561)Indication: Hypercalcemia On: :22 Request METABOLIC PANEL, COMPREHENSIVE (88310)Indication: Hypercalcemia On: 2-Qia-273519:22 Request CBC WITH MANUAL DIFF (60307)Indication: fsgs On: :58 Request LIPID PANEL (03745)Indication: Mixed hyperlipidemia On: :58 Request METABOLIC PANEL, COMPREHENSIVE (12831)Indication: Hypertension, benign On: 3-Zgq-533619:58 Request Blood Glucose , Office (99930)Indication: Diabetes mellitus type II, controlled On: 1-Oet-335897:10 Request TSH (58778)Indication: Diabetes mellitus type II, controlled On: 97-Ski-635349:51 Request METABOLIC PANEL, COMPREHENSIVE (24494)Indication: Diabetes mellitus type II, controlled On: 70-Ely-188026:51 Request CBC WITH MANUAL DIFF (15564)Indication: Diabetes mellitus type II, controlled On: 13-Yuc-020906:51 Request MICROALBUMIN: CREATININE RATIO (25727) AND (53693)Indication: Diabetes mellitus type II, controlled On: 74-Hct-529547:51 Request HEPATIC FUNCTION PANEL (85410)Indication: Other and unspecified hyperlipidemia On: :51 Request LIPID PANEL (53115)Indication: Other and unspecified hyperlipidemia On: :51 Request HgA1C , Office (56005)Indication: Diabetes mellitus type II, controlled On: :37 Request Blood Glucose , Office (11210)Indication: Diabetes mellitus type II, controlled On: :37 Request Planned Encounters Medical; [facility] 3 Month FU - On: 22-Mar-2018 11:00 [facility] Fast DO, Chaparrita A Fast DO, Chaparrita A Planned Procedures DRAIN/INJECT MAJOR JOINT OR BURSA On: 07-Feb-2018 Intent ()By: Keri Singh MD Comments: lot no [id number] exp date 2017-12-26 DRAIN/INJECT MAJOR JOINT OR BURSA On: 31-Jan-2018 Intent ()By: Keri Singh MD Comments: Lot#[id number]:2-35-27Gcfpw:intra articular Site given:left knee Given By: Dr. Singh ABN signed DRAIN/INJECT MAJOR JOINT OR BURSA On: 24-Jan-2018 Intent ()By: Keri Singh MD Comments: Lot#[id number]: 6-24-31Gqwbt:intra artciular Site given:left knee Given By: Dr. Singh ABN signed Euflexxa Echo CompleteBy: Fast DO, Chaparrita A On: 16-Dec-2017 Intent Fast DO, Chaparrita A Flu Vaccine (Quadrivalent) 12628In: On: 16-Dec-2017 Intent Fast DO, Chaparrita A Fast DO, Chaparrita A Comments: Lot: [id number]: 10/01/18Site: L dltd, IMDose prefilled syringegiven by: Jamie reviewed and ABN signed Kenalog Injection, 10 mgm On: 03-Oct-2017 Intent (J3301)By: Keri Singh MD Comments: lot: [id number]: 11/20site/route: L knee Cartoid DopplerBy: Fast DO, Chaparrita A On: 12-Sep-2017 Intent Fast DO, Chaparrita A Comments: november DIGITAL TOMOSYNTHESIS OF On: 12-Sep-2017 Intent BREAST (37940)By: Ambrocio WOLFF Chaparrita A Comments: due november 02 Ambrocio WOLFF Chaparrita A Kenalog Injection, 10 mgm On: 06-Jun-2017 Intent (J3301)By: Keri Singh MD Comments: bupivacacine 0.5% [id number] exp 09-20 kenalog 40 mg injected in. [id number] 07-21 MRI OF BRAIN WITH AND WITHOUT On: 06-Jun-2017 Intent CONTRAST (91410)By: Ambrocio WOLFF Chaparrita A Fast DO, Chaparrita A ELECTROCARDIOGRAM, COMPLETE (ECG) On: 06-Jun-2017 Intent (39820)By: Case Albrecht DOa A Fast Comments: ekg [...] 10-May-2017 Intent 1000 CC (Special Coverage Comments: lot:[id number]:IV left anticub dose:1000ml given by:eliazar Araya LPN Instructions Apply. See MCM: 2048) (J7030)By: Case Albrecht DOa A Ambrocio DO, Chaparrita A Radiology - Chest- PA and LatBy: On: 05-May-2017 Intent Keri Singh MD Aerosol Treatment (88891)By: On: 05-May-2017 Intent Keri Singh MD Radiology - ChestBy: Francisco MANN, On: 05-May-2017 Intent Keri Alonzo Comments: call wet read DRAIN/INJECT MAJOR JOINT OR BURSA On: 28-Feb-2017 Intent (05554)By: Keri Singh MD Comments: 1 cc Kenelog #[id number] cc Marcaine #[id number] Kenalog Injection, 10 mgm On: 28-Feb-2017 Intent (J3301)By: Keri Singh MD ELECTROCARDIOGRAM, COMPLETE (ECG) On: 10-Jan-2017 Intent (19532)By: Chaparrita Albrecht DO Fast Comments: ekg showed normal sinus rhythym, normal axis, no acute st/t wave changes Chaparrita WOLFF A Flu Vaccine (Quadrivalent) 86044Qs: On: 27-Dec-2016 Intent SHONDA Andrade DRAIN/INJECT MAJOR JOINT OR BURSA On: 20-Aug-2016 Intent ()By: Keri Singh MD DRAIN/INJECT MAJOR JOINT OR BURSA On: 13-Aug-2016 Intent ()By: SHONDA Andrade Comments: lot: [id number]:[id number]:intra articular dose:2ml given by:Dr. Francisco HUMPHREY signedER, DIE OUT WORKER injection #3 DOPPLER ULTRASOUND OF RIGHT CAROTID On: 10-Aug-2016 Intent ARTERY (51725)By: Ambrocio DO Chaparrita A Comments: end of october Fast DO, Chaparrita A DEXA SCAN AXIAL SKELETON (04343)By: On: 10-Aug-2016 Intent Ambrocio WOLFF, Chaparrita A Fast DO, Chaparrita A Comments: end of october SCREENING DIGITAL TOMOSYNTHESIS OF On: 10-Aug-2016 Intent BREAST (27658)By: Case Albrecht DOa A Comments: end of october Fast DO, Chaparrita A DRAIN/INJECT MAJOR JOINT OR BURSA On: 06-Aug-2016 Intent ()By: Keri Singh MD DRAIN/INJECT INTERMED JOINT/BURSA On: 06-Aug-2016 Intent ()By: SHONDA Andrade Comments: lot:[id number]:1-84-0414cta:left knee dose:2mlgiven by:Dr. Francisco HUMPHREY signedER, DIE OUT WORKER injection number 2 Venous Doppler - LeftBy: Ambrocio WOLFF, On: 03-Aug-2016 Intent Chaparrita A Fast DO, Chaparrita A Comments: This is set up for August 05 at 11am- spoke with Rina in cv. DRAIN/INJECT INTERMED JOINT/BURSA On: 30-Jul-2016 Intent ()By: Keri Singh MD Comments: lot:[id number]:7-12-0715hqc:intra articular left knee dose: 2ml given by: Dr. Francisco HUMPHREY signedER, DIE OUT WORKER injection #1 Radiology - Knee - LeftBy: Fast DO, On: 26-May-2016 Intent Chaparrita A Fast DO, Chaparrita A Flu Vaccine (Quadrivalent) 96366Ix: On: 27-Jan-2016 Intent Fast DO, Chaparrita A Fast DO, Chaparrita A Comments: Lot #:[id number] date:10/01/16mount given:0.5mlRoute: IMSite given: left deltoidGiven by: CARMELINA Hook ADMINISTRATION OF INFLUENZA VIRUS On: 27-Jan-2016 Intent VACCINE (G0008)By: Fast DO, Chaparrita A Fast DO, Chaparrita A DOPPLER ULTRASOUND OF RIGHT CAROTID On: 22-Oct-2015 Intent ARTERY (08876)By: Fast DO, Chaparrita A Fast DO, Chaparrita A MAMMOGRAM, SCREENING, BOTH BREAST On: 22-Oct-2015 Intent (32351)By: Fast DO, Chaparrita A Fast DO, Chaparrita A Ultrasound - RenalBy: Fast DO, On: 14-Jul-2015 Intent Chaparrita A Fast DO, Chaparrita A Radiology - Knee - Left - Weight On: 11-Mar-2015 Intent BearingBy: Fast DO, Chaparrita A Fast DO, Chaparrita A Radiology - Knee - Right - Weight On: 11-Mar-2015 Intent BearingBy: Fast DO, Chaparrita A Fast DO, Chaparrita A Flu Vaccine (Quadrivalent) 63755Mn: On: 11-Feb-2015 Intent Fast DO, Chaparrita A Fast DO, Chaparrita A EKG (42891)By: Fast DO, Chaparrita A On: 05-Nov-2014 Intent Fast DO, Chaparrita A Comments: ekg showed normal sinus rhythym, normal axis, no acute st/t wave changes left axis DRAIN/INJECT SMALL JOINT OR BURSA On: 07-Oct-2014 Intent ()By: Keri Singh MD MAMMOGRAM, SCREENING, BOTH BREAST On: 02-Aug-2014 Intent (97860)By: Fast DO, Chaparrita A Fast Comments: meera DO, Chaparrita A Cartoid DopplerBy: Fast DO, Chaparrita A On: 02-Aug-2014 Intent Fast DO, Chaparrita A DEXA SCAN AXIAL SKELETON (23559)By: On: 09-Apr-2014 Intent Fast DO, Chaparrita A Fast DO, Chaparrita A Prevnar 13 (73768)By: Ambrocio DO, On: 30-Jan-2014 Intent Chaparrita A Fast DO, Chaparrita A Comments: Lot:[id number]:05/20Dose:0.5Route:imSite:l armGiven By:Jarred signed FLU VAC, SPLIT, >3 YEARS, INTRAMUSC On: 16-Jan-2014 Intent (83058)By: Chaparrita Albrecht DO A Ambrocio Comments: Lot #:[id number] date:12/2015Amount given:0.5mlRoute: IMSite given: left deltoidGiven by: CARMELINA Hook DO, Chaparrita A ADMINISTRATION OF INFLUENZA VIRUS On: 16-Jan-2014 Intent VACCINE (G0008)By: Ambrocio DO, Chaparrita A Fast DO, Chaparrita A EKG (18556)By: Fast DO, Chaparrita A On: 17-Oct-2013 Intent Fast DO, Chaparrita A Comments: ekg showed normal sinus rhythym, left axis, no acute st/t wave changes Radiology - Chest- PA and LatBy: On: 17-Sep-2013 Intent Fast DO, Chaparrita A Fast DO, Chaparrita A Aerosol Treatment (51196)By: Ambrocio On: 17-Sep-2013 Intent DO, Chaparrita A Fast DO, Chaparrita A MRI - BrainBy: Fast DO, Chaparrita A On: 22-Jul-2013 Intent Fast DO, Chaparrita A Cartoid DopplerBy: Fast DO, Chaparrita A On: 20-Jul-2013 Intent Fast DO, Chaparrita A MAMMOGRAM, SCREENING, BOTH BREASTS On: 20-Jul-2013 Intent (08699)By: Fast DO, Chaparrita A Fast DO, Chaparrita A Eprescribed prescriptions On: 20-Jul-2013 Intent (G8553)By: Fast DO, Chaparrita A Fast DO, Chaparrita A Eprescribed prescriptions On: 02-Feb-2013 Intent (G8553)By: Марина Concepcion FLU VAC, SPLIT, >3 YEARS, INTRAMUSC On: 03-Jan-2013 Intent (83580)By: Марина Concepcion Comments: Lot #:[id number] date:mount given:0.5mlRoute: IMSite given: L dltdVIS and ABN signedGiven by: CARMELINA Hook ADMINISTRATION OF INFLUENZA VIRUS On: 03-Jan-2013 Intent VACCINE (G0008)By: Марина Concepcion CT - Abdomen & Pelvis (IV Contrast On: 17-Oct-2012 Intent Needed)By: Chaparrita Albrehct DO A Ambrocio Comments: patient will be calling to set up DO, Chaparrita A Eprescribed prescriptions On: 10-Oct-2012 Intent (G8553)By: Марина Concepcion Ear Irrigation (44478)By: [place] On: 13-Jun-2012 Intent Ivy Comments: Ear Irrigation performed on: right earAmount/color removed cerumen: light brown, small amount removedOUtcome:Pt toleratedUsed wax curettes Wax Currettes (08125)By: [place], On: 13-Jun-2012 Intent Ivy PNEUM VAC ADLT/IMUMNOSPR, SBC/INTRM On: 13-Jun-2012 Intent (87516)By: Chaparrita Albrecht DO Comments: Lot:[id number]:09/09/13Dose:0.5mLRoute:IMSite:L armGiven By:BHUMI signed DO, Chaparrita A EKG (30243)By: Case Albrecht DOa A On: 13-Jun-2012 Intent [...] MAMMOGRAM, SCREENING, BOTH BREASTS On: 28-Dec-2011 Intent (65077)By: Case Albrecht DOa A Ambrocio DO, Chaparrita A DXA, BONE DENSITY, AXIAL SKELETON On: 28-Dec-2011 Intent (51853)By: Ambrocio WOLFF Chaparrita A Fast DO, Chaparrita [...] SPLIT, >3 YEARS, INTRAMUSC On: 28-Dec-2011 Intent (22102)By: Марина Concepcion Comments: Lot #:[id number] date:mount given:0.5mlRoute: IMSite given: left deltoidGiven by: CARMELINA Hook ADMINISTRATION OF INFLUENZA VIRUS On: 28-Dec-2011 Intent VACCINE (G0008)By: Марина Concepcion Aerosol Treatment (93959)By: Ciesa On: 30-Nov-[address] - Abdomen & PelvisBy: Fast DO, On: 21-Sep-2011 Intent Chaparrita A Fast DO, Chaparrita A Comments: with special cuts through the kidney- october EKG (73963)By: Марина Concepcion On: 15-Jun-2011 Intent Comments: ekg [...] Comments: Call results to Dr. Albrecht @ [phone] as soon as resulted please. DO, Chaparrita A Eprescribed prescriptions On: 11-Jan-2011 Intent (G8553)By: Fast DO, Chaparrita A Fast DO, Chaparrita A MAMMOGRAM, SCREENING, BOTH BREASTS On: 11-Jan-2011 Intent (28918)By: Ambrocio DO, Chaparrita A Fast DO, Chaparrita A CT - Sinuses CompleteBy: Fast DO, On: 11-Jan-2011 Intent Chaparrita A Fast DO, Chaparrita A Cartoid DopplerBy: Fast DO, Chaparrita A On: 11-Jan-2011 Intent Fast DO, Chaparrita A ADMINISTRATION OF INFLUENZA VIRUS On: 11-Jan-2011 Intent VACCINE (G0008)By: Марина Concepcion FLU VAC, SPLIT, >3 YEARS, INTRAMUSC On: 11-Jan-2011 Intent (98239)By: Марина Concepcion Eprescribed prescriptions On: 12-Oct-2010 Intent (G8553)By: Ambrocio DO, Chaparrita A Fast DO, Chaparrita A Renal DopplerBy: Fast DO, Chaparrita A On: 12-Oct-2010 Intent Fast DO, Chaparrita A Cartoid DopplerBy: Fast DO, Chaparrita A On: 12-Oct-2010 Intent Fast DO, Chaparrita A Comments: sept TDAP VACCINE >7 IM (99307)By: On: 13-May-2010 Intent Helena Tineo LPN Comments: Lot #[id number]/25/13Site-left deltoidgiven by:[facility] EKG (72398)By: Марина Concepcion On: 13-May-2010 Intent Comments: ekg showed normal sinus rhythym, normal axis, no acute st/t wave changes Aerosol Treatment (69177)By: Charlene On: 22-Dec-2009 Intent Johanna SANZ Cartoid DopplerBy: Fast DO, Chaparrita A On: 01-Dec-2009 Intent Fast DO, Chaparrita A MAMMOGRAM, SCREENING, BOTH BREASTS On: 01-Dec-2009 Intent (51556)By: Ambrocio DO, Chaparrita A Fast DO, Chaparrita A DXA, BONE DENSITY, AXIAL SKELETON On: 01-Dec-2009 Intent (19728)By: Fast DO, Chaparrita A Fast DO, Chaparrita A Ultrasound - SpleenBy: Fast DO, On: 17-Jun-2009 Intent Chaparrita A Fast DO, Chaparrita A EKG (77548)By: Марина Concepcion On: 10-Mar-2009 Intent Comments: ekg showed normal sinus rhythym, normal axis, no acute st/t wave changes FLU VAC, SPLIT, >3 YEARS, INTRAMUSC On: 09-Jan-2009 Intent (45730)By: Stacy Jorge Comments: Lot #[id number]/[id number]-left deltoidDose0.5mlgiven by Marycarmen Jorge LPN ADMINISTRATION OF INFLUENZA VIRUS On: 09-Jan-2009 Intent VACCINE (G0008)By: Stacy Jorge MAMMOGRAM, SCREENING, BOTH BREASTS On: 04-Dec-2008 Intent (01757)By: Fast DO, Chaparrita A Fast DO, Chaparrita A MAMMOGRAM, SCREENING, BOTH BREASTS On: 03-Sep-2008 Intent (40623)By: Fast DO, Chaparrita A Fast DO, Chaparrita A FLU VAC, SPLIT, >3 YEARS, INTRAMUSC On: 16-Jan-2008 Intent (30342)By: Janet Scherer RN Comments: Lot #: [id number] date: 09/10Amount given: 0.5 mlRoute: IMSite given: Left deltoidGiven by: Olivia Bell LPN ADMINISTRATION OF INFLUENZA VIRUS On: 16-Jan-2008 Intent VACCINE ([id number])By: Janet Scherer RN EKG ([id number])By: Fast DO, Chaparrita A On: 29-Aug-2007 Intent Fast DO, Chaparrita A Comments: done km ADMINISTRATION OF PNEUMOCOCCAL On: 29-Aug-2007 Intent VACCINE ([id number])By: Fast DO, Chaparrita A Fast DO, Chaparrita A PNEUM VAC ADLT/IMUMNOSPR, SBC/INTRM On: 29-Aug-2007 Intent ([id number])By: Fast DO, Chaparrita A Fast Comments: 0.5cc given im lt arm [id number] exp 02-13-08 DO, Chaparrita A DXA, BONE DENSITY, AXIAL SKELETON On: 29-Aug-2007 Intent ([id number])By: Fast DO, Chaparrita A Fast DO, Chaparrita A MAMMOGRAM, SCREENING, BOTH BREASTS On: 29-Aug-2007 Intent ([id number])By: Fast DO, Chaparrita A Fast DO, Chaparrita [...] new people and be involved in the mu-ism 0 bps are good and sugar looking [...] medical issues: she has been working with [employer] and trying to work on that- she got rid of respiratory infection but was sick for weeks and was on pred so her sugar up and chol up a bit- trying to add protein shakes drink more water- she is starting back at [facility]- diarrhea resolved- we did talk [...] that she had episode where went to [facility] and she couldnt remember where she was- and happened one other time where she didnt recognize the roads- sister had alzheimer s- weight down because was sick- but coming back up- she hasnt done counseling with hospice has been thru before- she lonely- not necessarily unhappy- she doing self help she is singing with mu-ism- -rodriguez gars are all in low 100s-130- going to [place] for a month next monthEncounter Diagnosis: Nonsmoker, [...] Eddie and bp is good she joined [employer] sugar up bit doi ng ice cream-the bone density reviewed little thinner she not exercising routienly until just recent at [facility] and sees kidney doc next week and [...] visual acuity (yearly). Note for Physical exam: [facility] Wellness Physical- Talk about trying Myrbetriq., [...] Meningioma (Renamed from ABNRM RESULT, FUNCTION STUDY, BRAIN/BRAND ANALYST NEC (794.09)) [facility] [...] Meningioma (Renamed from ABNRM RESULT, FUNCTION STUDY, BRAIN/BRAND ANALYST NEC (794.09)), Diabetes, Type II, controlled [...] take byetta [facility]- - takes ??lorazepam 1-2 times [...] Meningioma (Renamed from ABNRM RESULT, FUNCTION STUDY, BRAIN/BRAND ANALYST NEC (794.09)), Colon Polyp [facility] [...] Meningioma (Renamed from ABNRM RESULT, FUNCTION STUDY, BRAIN/BRAND ANALYST NEC (794.09)), OCCLUSION AND STENOSIS OF [...] Meningioma (Renamed from ABNRM RESULT, FUNCTION STUDY, BRAIN/BRAND ANALYST NEC (794.09)), Chronic glomerulonephritis with lesion [...] Meningioma (Renamed from ABNRM RESULT, FUNCTION STUDY, BRAIN/BRAND ANALYST NEC (794.09)), Other and unspecified hyperlipidemia [...] Meningioma (Renamed from ABNRM RESULT, FUNCTION STUDY, BRAIN/BRAND ANALYST NEC (794.09)) [facility] [...] Meningioma (Renamed from ABNRM RESULT, FUNCTION STUDY, BRAIN/BRAND ANALYST NEC (794.09)), Gerd (530.81), Hyperlipidemia, Unspecified [...] Meningioma (Renamed from ABNRM RESULT, FUNCTION STUDY, BRAIN/BRAND ANALYST NEC (794.09)), Hypertension,benign(401.1), OCCLUSION AND STENOSIS [...] Meningioma (Renamed from ABNRM RESULT, FUNCTION STUDY, BRAIN/BRAND ANALYST NEC (794.09)), Diabetes, Type II, controlled [...] Meningioma (Renamed from ABNRM RESULT, FUNCTION STUDY, BRAIN/BRAND ANALYST NEC (794.09)), Hypertension,benign(401.1), Osteopenia (733.90), Depression [...] weight down 23 pounds- and trying joined [employer]- she feels well - she increased celexa [...] Meningioma (Renamed from ABNRM RESULT, FUNCTION STUDY, BRAIN/BRAND ANALYST NEC (794.09)), Chronic glomerulonephritis with lesion [...] Meningioma (Renamed from ABNRM RESULT, FUNCTION STUDY, BRAIN/BRAND ANALYST NEC (794.09)) End: 26-Jan-2011 16:53 [facility] Office Visit On: 19-Jan-2011 14:30 Encounter Diagnosis: brain tumor End: 21-Sep-2011 8:09 [facility] Phone Encounter On: 19-Jan-2011 13:41 Encounter Diagnosis: ABNRM RESULT, 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
--- OUTSIDE RECORDS SUMMARY | 2018-06-25 22:34 | XMS RPT_ITS | Continuity of Care Document ---
:1940 Author Organization [facility] Address [address] [place] [address] Phone Care Team Providers Name Role Phone [...] Knee pain, unspecified laterality (719.46) Comments: Valorie:lot: [id number]: 09/20site/route: L knee Status: Active Leg pain, [...] 60 {Tablet} Refills: 0 Ordered:16-Dec-2017 Ambrocio DO, Cahparrita AFast DO, Chaparrita A Start : 16-Dec-2017 [...] days Quantity: 90 {Capsule} Refills: 3 Ordered:04-May-2016 SHONAD Andrade Start : 27-Jan-2016 End : 04-May-2016 Inactive Dymista 137-50 MCG/ACT Nasal Suspension 1 (one) Suspension 1 spray daily for 0 days Quantity: 1 {Jenners} Refills: 0 Ordered:04-May-2016 SHONDA Andrade Start : [...] Quantity: 30 {Tablet} Refills: 0 Ordered:12-Oct-2010 Марина Concepicon Start : 22-Dec-2009 End : 09-Apr-2014 Discontinued [...] and dispense 8 ounes TOTAL mixed solutionCal [id number] if questions SPECTAZOLE, 1% (External Cream) 1 [...] End : 11-Feb-2015 Discontinued Comments:th[age], [facility] 08[facility]30-14 erussell Allergies and Adverse Reactions [...] Meningioma (Renamed from ABNRM RESULT, FUNCTION STUDY, BRAIN/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 2016 right Cholecystectomy Completed lumbar gqszdl==7766 Completed Tonsillectomy Completed Date Value Details 19-Dec-2017 Echocardiogram Complete Result: Comments: See Note; NOTES: [facility] Cardiovascular Services [address] [place] [address] Echo Complete 12/19/17 0800 MR#: [id number] Acct: [id number] Name: CLARENCE ALBERT ep #: [id number] : 1940 77 From: Chuckie Cormier MD Attending Dr: Chaparrita Albrecht DO Status: REG CLI Ordering Dr: Chaparrita Albrecht DO Date: 12/19/17 Location: [facility] Sex: F C Admitted: Reason For Study: [...] Dictated: 12/19/17 0800 Date Transcribed: 12/19/17 1022 Telephone Solicitor: Signed 07-Dec-2017 Carotid Duplex Ultrasound Result: Comments: See Note; NOTES: [facility] Cardiovascular Services [address] [place] [address] Carotid Duplex Ultrasound 12/06/17 0901 MR#: [id number] Acct: [id number] Name: CLARENCE WHITTINGTON Rep #: [id number] : 1940 77 From: Anurag Loya MD [...] the left vertebral artery. Procedure Carotid Duplex 23935. Exam performed in department. Interpretation Summary Mild (<50%) stenosis right extracranial internal carotid. Mild (<50%) stenosis left extracranial internal carotid. Flow within the vertebral arteries is antegrade bilaterally. __ __ Ordering Physician: Chaparrita Albrecht Performed By: Margot Benton RVT and Student 12/07/17 0809 Date Anurag Loya MD CC: Chaparrita Albrecht DO Date Dictated: 12/06/17900 Date Transcribed: 12/07/17808 Telephone Solicitor: Signed 06-Dec-2017 SCREENING MAMM (CAD), BILAT Result: Comments: See Note; NOTES: [facility] Imaging Services [address] [place] [address] SCREENING MAMM (CAD), BILAT MR#: [id number] Acct: [id number] Name: CLARENCE ALBERT Rep #: [id number] : 1940 F 77 From: Misael Hebert MD PCP: Chaparrita Albrecht DO Status: REG CLI Study: SCREENING MAMM (CAD), BILAT Date of Exam: 12/06/17 Exam# [id number] Ordering Dr: Chaparrita Albrecht DO MAMM OGRAPHY [...] delay biopsy of a clinically suspicious abnormality. [id number] Electronically Signed: Miasel Hebert MD at 15:31 EDT Tel [phone], rvice support , CC: Chaparrita Albrecht DO Telephone Solicitor: Signed 10-Jun-2017 Brain W/WO Contrast Result: Comments: See Note; NOTES: [facility] Imaging Services [address] [place] [address] Brain W/WO Contrast MR#: [id number] Acct: [id number] Name: CLARENCE ALBERT Rep #: [id number] : 1940 F 77 From: Laya Montilla MD PCP: Chaparrita Albrecht DO Status: REG CLI Study: Brain W/WO Contrast Date of Exam: 06/10/17 Exam# [id number] Ordering Dr: Chaparrita Albrecht DO STUDY: MRI [...] Service support , CC: Chaparrita Albrecht DO Telephone Solicitor: Signed 05-May-2017 Chest PA and Lateral Result: Comments: See Note; NOTES: [facility] Imaging Services [address] [place] [address] Chest PA and Lateral MR#: [id number] Acct: [id number] Name: CLARENCE ALBERT Rep #: [id number] : 1940 F 77 From: Edwar Patino MD PCP: Chaparrita Albrecht DO Status: REG CLI Study: Chest PA and Lateral Date of Exam: 05/05/17 Exam# [id number] Ordering Dr: Keri Singh MD STUDY: X-RAY [...] CC: Keri Singh MD; Chaparrita Albrecht DO Telephone Solicitor: Signed 02-Nov-2016 Dexa Bone Density Study (HP) Result: Comments: See Note; NOTES: [facility] Imaging Services [address] [place] [address] Verdana 4d Dexa Bone Density Study (HP) MR#: [id number] Acct: [id number] Name: LYNNE ALBERT Rep #: [id number] : 1940 F 76 From: Misael Hebert MD PCP: Chaparrita Albrecht DO Status: REG CLI Study: Dexa Bone Density Study () Date of Exam: 11/02/16 Exam# [id number] Ordering Dr: Laura DO STUDY: DUAL ENERGY [...] Misael Hebert MD at 11:02 EDT Tel [phone], Service support , CC: Chaparrita Albrecht DO Telephone Solicitor: Signed 02-Nov-2016 SCREENING MAMM (CAD), BILAT Result: Comments: See Note; NOTES: [facility] Imaging Services [address] [place] [address] Verdana 4d SCREENING MAMM (CAD), BILAT MR#: [id number] Acct: [id number] Name: CLARENCE ALBERT Rep #: [id number] : 1940 F 76 From: Misael Hebert MD PCP: Chaparrita Albrecht DO Status: [facility] CLI Study: SCREENING MAMM (CAD), BILAT Date of Exam: 11/02/16 Exam# [id number] Ordering Dr: Case Albrecht DO MAMMOGRAPHY - [...] delay biopsy of a clinically suspicious abnormality. [id number] Electronically Signed: Misael Hebert MD at 12:44 EDT Tel [phone], Service support , CC: Chaparrita Albrecht DO Telephone Solicitor: Signed 05-Aug-2016 Venous Duplex Lower Extremity Result: Comments: See Note; NOTES: [facility] Cardiovascular Services [address] [place] [address] Venous Duplex US, Unilateral 08/05/16 1053 MR#: [id number] Acct: [id number] Name: CLARENCE WEI Rep #: [id number] : 1940 76 From: Elvin Natarajan MD [...] Dictated: 08/05/16 1053 Date Transcribed: 08/05/16 1127 Telephone Solicitor: Signed 27-May-2016 Knee 4 or More Views Result: Comments: See Note; NOTES: [facility] Imaging Services [address] [place] [address] Verdana 4d Knee 4 or More Views MR#: [id number] Acct: [id number] Name: CLARENCE ALBERT Rep #: [id number] : 1940 F 76 From: Misael Hebert MD PCP: Chaparrita Albrecht DO Status: REG CLI Study: Knee 4 or More Views Date of Exam: 05/27/16 Exam# [id number] Ordering Dr: Kylah Linda UDY: X-RAY - [...] MD at 10:41 EST , Service support [phone], CC: Chaparrita Albrecht DO; Kylah Linda DO Telephone Solicitor: Signed 13-May-2016 Sinus/Facial Bone Result: Comments: See Note; NOTES: [facility] Imaging Services [address] [place] [address] Verdana 4d Sinus/Facial Bone MR#: [id number] Acct: [id number] Name: ALBERTCLARENCE J Rep #: [id number] : 1940 F 76 From: Godwin Winter MD PCP: Chaparrita Albrecht DO Status: REG CLI Study: Sinus/Facial Bone Date of Exam: 05/13/16 Exam# [id number] Ordering Dr: Alejandro Silverman MD STUDY: CT [...] MD at 7:35 EST , Service support [phone], CC: Chaparrita Albrecht DO; Alejandro Silverman MD Telephone Solicitor: Signed 21-Apr-2016 Emergency Department Summary Result: Comments: See Note; NOTES: [facility] Medical Records Department [address] [place] [address] Emergency Department Summary MR#: [id number] Acct: [id number] Name: CLARENCE ALBERT Rep #: [id number] : 1940 76 From: Carissa Murphy MD [...] epistaxis. CARISSA MURPHY MD T: NTS JOB: [id number] 04/21/16805 <Electronically signed by Carissa Murphy MD> Date Carissa donovan MD Cosigner Signature (If Indicated): Date CC: Chaparrita Albrecht DO Date Dictated: 04/20/161711 Date Transcribed: 04/20/161711 Telephone Solicitor: Signed 20-Apr-2016 Discharge Instruction Result: Comments: See Note; NOTES: [facility] Medical Records Department [address] [place] [address] Discharge Instruction 04/20/16 1303 MR#: [id number] Acct: [id number] Name: CLARENCE ALBERT Rep #: [id number] : 1940 76 From: Carissa Murphy MD PCP: Chaparrita Albrecht DO Status: [facility] ER ED Disposition - Plan for ED [...] your Primary Care Provider. Call [facility] ([phone]) or report to the closest Emergency Room. Call 911 if necessary. 04/20/16 9925 <Electronically signed by Carissa Murphy MD> Date Carissa Murphy MD Cosigner Signature (If I ndicated): Date CC: Chaparrita Albrecht DO 02-Nov-2015 Carotid Duplex Ultrasound Result: Comments: See Note; NOTES: [facility] Cardiovascular Services [address] [place] [address] Carotid Duplex Ultrasound 10/30/15 1100 MR#: [id number] Acct: [id number] Name: CLARENCE ALBERT Rep #: [id number] : 1940 75 From: Elvin Natarajan MD Attending Dr: Chaparrita Albrecht DO Status: REG CLI Ordering Dr: Chaparrita Albrecht DO Date: 10/30/15 Location: [facility] Sex: F C Adm itted: Reason For [...] the left vertebral artery. Procedure Carotid Duplex 92924. The exam was diagnostic. Exam performed in [...] Dictated: 10/30/15 1100 Date Transcribed: 11/02/15 1143 Telephone Solicitor: Signed 30-Oct-2015 Bilat Scrn Digital AND CAD Result: Comments: See Note; NOTES: [facility] Imaging Services [address] [place] [address] Verdana 4d Bilat Scrn Digital AND CAD MR#: [id number] Acct: [id number] Name: CLARENCE ALBERT Rep #: [id number] : 1940 F 75 From: Andres Brady MD PCP: Chaparrita Albrecht DO Status: REG CLI Study: Saad Jaffe Digital AND CAD Date of Exam: 10/30/15 Exam# [id number] Ordering Dr: Chaparrita Albrecht DO MAMMOGRAPHY - [...] biop sy of a clinically suspicious abnormality. [id number] Electronically Signed: Andres Brady MD at 17:48 EDT Tel , Service support [phone], CC: Chaparrita Albrecht DO Telephone Solicitor: Signed 30-Oct-2015 Bilat Scrn Digital AND CAD Result: Comments: See Note; NOTES: [facility] Imaging Services [address] [place] [address] Verdana 4d Bilat Scrn Digital AND CAD MR#: [id number] Acct: [id number] Name: CLARNECE ALBERT Rep #: [id number] : 1940 F 75 From: Andres Brady MD PCP: Chaparrita Albrecht DO Status: REG CLI Study: Bilat Scrn Digital AND CAD Date of Exam: 10/30/15 Exam# [id number] Ordering Dr: Chaparrita Albrecht DO MAMMOGRAPHY - [...] abnormalities are identified. CC: Chaparrita Albrecht DO Telephone Solicitor: Signed 22-Oct-2015 ELECTROCARDIOGRAM, COMPLETE (ECG) (32615) Comments: ekg showed normal sinus rhythym, normal axis, no acute st/t wave changes no change Result: [MEASUREMENTS ANALYSIS] Date of Test: 10/22/2015 14:41:29; Heart Rate: 71; WI Interval: 140; QRS: 94; QT Interval: 384; Corrected QT Interval (QTc): 403; P Wave Thayne: 58; QRS Wave Thayne: -3; T Wave Thayne: 56; Blood Pressure: 128/76 [ECG DIAGNOSTIC STATEMENTS] Date of Test: 10/22/2015 14:41:29; Summary: Sinus Rhythm Low voltage -possible pulmonary disease. ABNORMAL 22-Jul-2015 Kidney and Bladder Result: Comments: See Note; NOTES: [facility] Imaging Services [address] [place] [address] Verdana 4d Kidney and Bladder MR#: [id number] Acct: [id number] Name: Yaniv ALBERT Rep #: [id number] : 1940 F 75 From: Nir Sanchez MD PCP: Chaparrita Albrecht DO Status: REG CLI Study: Kidney and Bladder Date of Exam: 07/22/15 Exam# [id number] Ordering Dr: Chaparrita Albrecht DO STUDY: RENAL [...] at 4:59 EDT Tel , Service support [phone], CC: Chaparrita Albrecht DO Telephone Solicitor: Signed 11-Mar-2015 Knee 4 or More Views Result: Comments: See Note; NOTES: [facility] Imaging Services [address] [place] [address] Verdana 4d Knee 4 or More Views MR#: [id number] Acct: [id number] Name: CLARENCE ALBERT Rep #: [id number] : 1940 F 74 From: Trent Cameron DO PCP: Chaparrita Albrecht DO Status: REG CLI Study: Knee 4 or More Views Date of Exam: 03/11/15 Exam# [id number] Ordering Dr: Case Albrecht DO STUDY: X-RAY [...] at 7:45 EST Tel , Service support [phone], RAD/Knee 4 or More Views IMPRESSION: Degener ative changes within the knee. No acute fracture. Small suprapatellar effusion. Electronically Signed: Trent Cameron DO at 7:45 EST Tel , Service support [phone], CC: Chaparrita Albrecht DO Telephone Solicitor: Signed 11-Mar-2015 Knee 4 or More Views Result: Comments: See Note; NOTES: [facility] Imaging Services [address] [place] [address] Verdana 4d Knee 4 or More Views MR#: [id number] Acct: [id number] Name: BETY CLARENCE Nazia Rep #: [id number] : 1940 F 74 From: Trent Cameron DO PCP: Chaparrita Albrecht DO Status: REG CLI Study: Knee 4 or More Views Date of Exam: 03/11/15 Exam# [id number] Ordering Dr: Case Albrecht DO STUDY: X-RAY [...] at 7:46 EST Tel , Service support [phone], RAD/Knee 4 or More Views IMPRESSION: Mild degenerative changes. No acute bony abnormality. Electronically Signed: Trent Cameron DO at 7:46 EST Tel , Service support [phone], CC: Chaparrita Albrecht DO Telephone Solicitor: Signed 18-Oct-2014 Carotid Duplex Ultrasound Result: Comments: See Note; NOTES: [facility] Cardiovascular Services [address] [place] [address] Carotid Duplex Ultrasound 10/18/14 1331 MR#: [id number] Acct: [id number] Na me: CLARENCE ALBERT Rep #: [id number] : 1940 74 From: Elvin Natarajan MD [...] the left vertebral artery. Procedure Carotid Duplex 47864. The exam was diagnostic. Exam performed in [...] Dictated: 10/18/14 1331 Date Transcribed: 10/18/14 1616 Telephone Solicitor: Signed 18-Oct-2014 Bilat Scrn Digital AND CAD Result: Comments: See Note; NOTES: [facility] Imaging Services [address] [place] [address] Breast Imaging Report MR#: [id number] Acct: [id number] Name: CLARENCE ALBERT Rep #: [id number] : 1940 F 74 From: Misael Hebert MD PCP: Chaparrita Albrecht DO Status: REG CLI Study: Saad Jaffe Digital AND CAD Date of Exam: 10/18/14 Exam# [id number] Ordering Dr: Chaparrita Albrecht DO MAMMOGRAPHY - [...] Misael redmond MD at 13:44 EDT Tel [phone], Service support [phone], CC: Chaparrita Albrecht DO Telephone Solicitor: Signed 09-Jul-2014 Dexa Bone Density Study (HP) Result: Comments: See Note; NOTES: [facility] Imaging Services [address] [place] [address] Bone Density Report MR#: [id number] Acct: [id number] Name: CLARENCE ALBERT Rep #: [id number] : 1940 F 74 From: Misael Hebert MD PCP: Chaparrita Albrecht DO Status: REG CLI Study: Dexa Bone Density Study (HP) Date of Exam: 07/09/14 Exam# [id number] Ordering Dr: Chaparrita Albrecht DO STUDY: DUAL [...] Angel Hebert MD at 14:55 EDT Tel [phone], Service support [phone], CC: Chaparrita Albrecht DO Telephone Solicitor: Signed 17-Sep-2013 Chest PA and Lateral Result: Comments: See Note; NOTES: [facility] Imaging Services [address] [place] [address] Radiology Report MR#: [id number] Acct: [id number] Name: CLARENCE ALBERT Rep #: [id number] : 1940 F 73 From: David Bennett MD PCP: Chaparrita Albrecht DO Status: REG CLI Study: Chest PA and Lateral Date of Exam: 09/17/13 Exam# [id number] Ordering Dr: Chaparrita Albrecht DO STUDY: X-RAY [...] MD at 20:44 EDT , Service support [phone], RAD/Chest PA and Lateral IMPRESSION: No focal infiltrate or edema. Electronic ally Signed: David Bennett MD at 20:44 EDT , Service support [phone], CC: Chaparrita Albrecht DO Telephone Solicitor: Signed 17-Sep-2013 Spirometry (27340) Result: 29-Aug-2013 Carotid Duplex Ultrasound Result: Comments: See Note; NOTES: [facility] Cardiovascular Services [address] [address] Carotid Duplex Ultrasound 08/24/13 0939 MR#: [id number] Acct: [id number] Nam e: CLARENCE ALBERT Rep #: [id number] : 1940 73 From: Anurag Loya MD Attending Dr: Chaparrita Albrecht DO Status: REG CLI Ordering Dr: Chaparrita Albrecht DO Date: 08/24/13 Location: [facility] Sex: F C Admitted: Rt. Velocities/BP Lt. [...] in the left bulb. Procedure Carotid Duplex 26657. Exam perfor med in department. Interpretation Summary Mild (<50%) stenosis right extracranial internal carotid. Mild (<50%) stenosis left extracranial internal carotid. Flow within the vertebra l arteries is antegrade bilaterally. Ordering Physician: Chaparrita Albrecht Performed By: Kendal Benton RVT : Chaparrita Albrecht DO Date Dictated: 08/24/13 0939 Date Transcribed: 08/29/13 1118 Telephone Solicitor: Signed Immunization Name Dates Details Influenza (3 years and up) on: 16-Jan-2008 Comments: Lot #: [id number] date: 09/10Amount given: 0.5 mlRoute: IMSite given: Left deltoidGiven by: Olivia Bell LPN Influenza (3 years and up) on: 09-Jan-2009 Comments: Lot #[id number]-left deltoidDose0.5mlgiven by Marycarmen Jorge LPN Pneumococcal (2 years and up) on: 29-Aug-2007 Comments: 0.5cc given im lt arm [id number] exp 02-13-08 Family History Unknown Family Member [...] Description Value Details :24 HgA1C , Office (47839) HgA1C , Office 6.5 % (Normal) Range: 4.6 - 7.1 :14 LIPID PANEL (82886) Comments: PATIENT WAS FASTINGPERFORMED BY: [employer] [employer] [place] [id number] LDL/HDL Ratio 1.1 {ratio} (Normal) Range: 0.0-3.2 [...] (Normal) Range: 100-199 :14 Vitamin D Hydroxy (30626) Comments: PATIENT WAS FASTINGPERFORMED BY: [employer] [employer] [place] [id number] Vitamin D, 25-Hydroxy 37.8 ng/mL (Normal) Range: 30.0-100.0 Comments: Vitamin D deficiency has been defined by the [place] ofMedicine and an Endocrine Society practice guideline as alevel of serum 25-OH vitamin D less than 20 ng/mL (1,2).The Endocrine Society went on to further define vitamin Dinsufficiency as a level between 21 and 29 ng/mL (2).1. IOM ([place] of Medicine). 2010. Dietary reference intakes for calcium and D. [place]: The National Academies Press.2. Mira MF, Rosette LOPEZ, Tommy SWAIN, et al. Evaluation, treatment, and prevention of vitamin D deficiency: an Endocrine Society clinical practice guideline. JCEM. 2010; 96(7):1911-30. 5-Dec-20179:14 CBC with auto diff (32426) Comments: PATIENT WAS FASTINGPERFORMED BY: LabCoRut[facility] - [facility] Behavioral HealthCareGujfhx3376 [facility] [id number] Immature Grans (Abs) 0.0 {x10E3/uL} (Normal) Range: [...] PANEL, COMPREHENSIVE Comments: PATIENT WAS FASTINGPERFORMED BY: Commex TechnologiesRutgers - University Behavioral HealthCareYzhirw2078 [facility] [id number] (96576) ALT (SGPT) 10 [iU]/L (Normal) Range: 0-32 [...] 8-27 Glucose 142 mg/dL (Abnormal) Range: 65-99 13-Itr-51851:40 MICROALBUMIN: CREATININE RATIO Comments: PATIENT WAS FASTINGPERFORMED BY: Commex TechnologiesRutgers - University Behavioral HealthCareRstlbz0654 [facility] [id number] (67182) AND (56728) Alb/Creat Ratio 4213.3 {mg/g_creat} (Abnormal) Range: 0.0-30.0 Albumin, Urine 3206.3 ug/mL (Normal) Comments: Results confirmed ondilution. Creatinine, Urine 76.1 mg/dL (Normal) :40 CBC & PLATELETS (AUTO) (45002) Comments: please fax to Dr. Austin- [phone]; PATIENT WAS FASTINGPERFORMED BY: Commex TechnologiesAshley V[place] 9397470 [facility] [id number] Platelets 148 {x10E3/uL} (Abnormal) Range: 150-379 RDW 14.8 % (Normal) Range: 12.3-15.4 MCHC 33.6 g/dL (Normal) Range: 31.5-35.7 MCH 29.7 pg (Normal) Range: 26.6-33.0 MCV 89 fL (Normal) Range: 79-97 Hematocrit 36.9 % (Normal) Range: 34.0-46.6 Hemoglobin 12.4 g/dL (Normal) Range: 11.1-15.9 RBC 4.17 {x10E6/uL} (Normal) Range: 3.77-5.28 WBC 4.7 {x10E3/uL} (Normal) Range: 3.4-10.8 80-Qhj-61670:40 RENAL FUNCTION PANEL Comments: please fax to Dr. Austin- [phone]; PATIENT WAS FASTINGPERFORMED BY: Commex TechnologiesRutgers - University Behavioral HealthCareJyrpbu6900 [facility] [id number] Information: [id number] FX DR. SANTANA (20259) Albumin 3.1 g/dL (Abnormal) Range: 3.5-4.8 Phosphorus [...] 133 mg/dL (Abnormal) Range: 65-99 :40 MAGNESIUM (98577) Comments: please fax to Dr. Austin- [phone]; PATIENT WAS FASTINGPERFORMED BY: [facility] Hsgbat6701 [address] RoadDublin [place] [id number] Magnesium 1.9 mg/dL (Normal) Range: 1.6-2.3 :40 CALCIFEDIOL (14110) Comments: please fax to Dr. Austin- [phone]; PATIENT WAS FASTINGPERFORMED BY: [facility] Zerivf6888 [address] RoadDublin [place] [id number] Vitamin D, 25-Hydroxy 29.4 ng/mL (Abnormal) Range: 30.0-100.0 Comments: Vitamin D deficiency has been defined by the [place] ofA[facility] Hospitalcine and an Endocrine Society practice guideline as alevel of serum 25-OH vitamin D less than 20 ng/mL (1,2).The Endocrine Society went on to further define vitamin Dinsufficiency as a level between 21 and 29 ng/mL (2).1. IOM ([place] of Medicine). 2010. Dietary reference intakes for calcium and D. [place]: The National Academies Press.2. Mira MF, Rosette [place], Tommy SWAIN, et al. Evaluation, treatment, and prevention of vitamin D deficiency: an Endocrine Society clinical practice guideline. JCEM. 2010; 96(7):1911-30. :40 PARATHORMONE (69378) Comments: please fax to Dr. Austin- [phone]; PATIENT WAS FASTINGPERFORMED BY: [facility] Wimtse37[address] RoadDublin [place] [id number] PTH, Intact 22 pg/mL (Normal) Range: 15-65 86-Deo-41506:30 COLON BIOPSY (CHOOSE See Note (Normal) Comments: [facility] [address] [place], [place], [id number] SITE) Comments: Patient: CLARENCE ALBERT : 1940 (77/F) Acct Num: [id number] Phys: Marcus Caldera Unit Num: [id number] Loc: LABSPEC Specimen: [id number] Received: 09/16/171528 Spec Type: Kendal MAURER TISSUES [...] one cassette. / MARCY:dustin 09/19/17 TC:1 CPT: 62971 x2 HEADER OPERATION: Colonoscopy PRE-OP DIAGNOSIS: History of polyps TISSUE SUBMITTED: A Proximal sigmoid polyp, rule out adenoma, B Transversecolon, rule out adenoma MICROSCOPIC DESCRIPTION Slides are reviewed. M ICROSCOPIC DIAGNOSIS A. Proximal sigmoid polyp, biopsy: Fragments of tubular adenoma. B. Transverse colon polyp, biopsy: Fragments of tubular adenoma. SJ:dustin 09/20/17 Signed _ Nacho Ardon 09/20/17 <signature on file> 75-Kzk-61317:24 METABOLIC PANEL, COMPREHENSIVE Comments: PATIENT NOT FASTINGPERFORMED BY: LabCoR[facility] Behavior[facility] HealthCareLebrve5586 [facility] [id number] (43437) ALT (SGPT) 14 [iU]/L (Normal) Range: 0-32 [...] (Abnormal) Range: 65-99 :07 HgA1C , Office (52540) HgA1C , Office 7.2 % (Abnormal) Range: 4.6 - 7.1 :37 Clostridium difficile Toxin Comments: PATIENT NOT FASTINGPERFORMED BY: [facility]berFish TechnologiesAsc[facility]6370 [facility] [id number] A+B, EIA (70597) C difficile Toxins A+B, EIA Negative (Normal) :37 LEUKOCYTE COUNT, FECAL (76834) Comments: PATIENT NOT FASTINGPERFORMED BY: [facility]berFish [facility]Asc[facility]6370 [facility] [id number] Result 1 NWBC (Normal) Comments: No white blood cells seen. White Blood Cells (WBC), Final report (Normal) Stool :37 OVA & PARASITE DIR SMEAR Comments: PATIENT NOT FASTINGPERFORMED BY: [facility]Asc[facility]6370 [facility] [id number] (44603) Result 1 NOCP (Normal) Comments: No ova, cysts, or parasites seen. Ova + Parasite Exam Final report (Normal) Comments: These results were obtained using wet preparation(s) and trichromestained smear. This test does not include testing for Cryptosporidiumparvum, Cyclospora, or Microsporidia. :37 SETH CULTURE-STOOL (53368) Comments: PATIENT NOT FASTINGPERFORMED BY: [employer] Unbihj0961 [facility] [id number] Information: SRC:ST SRC:ST E coli Shiga Toxin EIA Negative (Normal) Result 1 NCI (Normal) Comments: No Campylobacter species isolated. Campylobacter Culture Final report (Normal) Result 1 NSS (Normal) Comments: No Salmonella or Shigella recovered. Salmonella/Shigella Screen Final report (Normal) :06 Renal function Panel Comments: fax copy to Dr. Santana [phone]; A courtesy copy of this report has been sent [phone].PATIENT NOT FASTINGPERFORMED BY: [employer] Almmxk2096 [facility] [id number] Information: NURSE DRAW (92196) Albumin 3.5 g/dL (Normal) Range: 3.5-4.8 Phosphorus [...] copy of this report has been sent [phone].PATIENT NOT FASTINGPERFORMED BY: [employer] Wrrxvo7404 [facility] [id number] :02 Range: 15-65 Vitamin D, 25-Hydroxy 34.7 ng/mL (Normal) Comments: A courtesy copy of this report has been sent [phone].PATIENT NOT FASTINGPERFORMED BY: [employer] Goprtg1177 [facility] [id number] :02 Range: 30.0-100.0 Comments: Vitamin D deficiency has been defined by the [place] of[place]icine and an Endocrine Society practice guideline as alevel of serum 25-OH vitamin D less than 20 ng/mL (1,2).The Endocrine Society went on to further define vitamin Dinsufficiency as a level between 21 and 29 ng/mL (2).1. IOM ([place] of Medicine). 2010. Dietary reference intakes for calcium and D. [place]: The National Academies Press.2. Mira MF, Rosette NC, Tommy SWAIN, et al. Evaluation, treatment, and prevention of vitamin D deficiency: an Endocrine Society clinical practice guideline. JCEM. 2010; 96(7):1911-30. 1-Uus-438539:02 MICROALBUMIN: CREATININE RATIO Comments: send results to Dr. Santana fax: [phone]; A courtesy copy of this report has been sent [phone].PATIENT NOT FASTINGPERFORMED BY: [employer] Ryzsbl2280 [address] [facility] [id number] (33322) AND (64090) Alb/Creat Ratio 4191.2 {mg/g_creat} (Abnormal) Range: 0.0-30.0 Albumin, Urine 2380.6 ug/mL (Normal) Comments: Results confirmed ondilution. Creatinine, Urine 56.8 mg/dL (Normal) :02 CBC, PLATELETS & MANUAL Comments: send results to Dr. Santana fax: [phone]; A courtesy copy of this report has been sent [phone].PATIENT NOT FASTINGPERFORMED BY: [employer] Wxhuao7148 [facility] [id number] Information: VIT D25, PTH DIFF (39099) Immature Grans (Abs) 0.0 {x10E3/uL} (Normal) Range: [...] 3.77-5.28 WBC 5.4 {x10E3/uL} (Normal) Range: 3.4-10.8 4-Dkr-126166:02 MAGNESIUM (86602) Comments: send results to Dr. Santana fax: [phone]; A courtesy copy of this report has been sent [phone].PATIENT NOT FASTINGPERFORMED BY: LabCoRutgers - University Behavioral HealthCareUywwai3766 [facility] [id number] Magnesium, Serum 1.8 mg/dL (Normal) Range: 1.6-2.3 6-Web-527838:02 RENAL FUNCTION PANEL (64831) Comments: send results to Dr. Santana fax: [phone]; A courtesy copy of this report has been sent [phone].PATIENT NOT FASTINGPERFORMED BY: [employer] Fbbzxm6138 [facility] [id number] Albumin, Serum 3.7 g/dL (Normal) Range: 3.5-4.8 [...] Glucose, Serum 119 mg/dL (Abnormal) Range: 65-99 5-Xdf-525305:07 LIPID PANEL (42972) Comments: PATIENT WAS FASTINGPERFORMED BY: [employer] TechnologiesRutgers - University Behavioral HealthCareLyfgec6622 [facility] [id number] LDL/HDL Ratio 1.4 {ratio} (Normal) Range: 0.0-3.2 Comments: LDL/HDL Ratio Men Women 1/2 Avg.Risk 1.0 1.5 Av g.Risk 3.6 3.2 2X Avg.Risk 6.2 5.0 3X Avg.Risk 8.0 6.1 LDL Cholesterol Calc 102 mg/dL (Abnormal) Range: 0-99 VLDL Cholesterol Cesar 17 mg/dL (Normal) Range: 5-40 HDL Cholesterol 75 mg/dL (Normal) Triglycerides 84 mg/dL (Normal) Range: 0-149 Cholesterol, Total 194 mg/dL (Normal) Range: 100-199 7-Whd-054437:07 CBC W/AUTO DIFF WBC (70950) Comments: PATIENT WAS FASTINGPERFORMED BY: LabCoRutgers - University Behavioral HealthCareRnucmf0541 [facility] [id number] Immature Grans (Abs) 0.0 {x10E3/uL} (Normal) Range: [...] 3.77-5.28 WBC 4.8 {x10E3/uL} (Normal) Range: 3.4-10.8 6-Skb-936475:07 METABOLIC PANEL, COMPREHENSIVE Comments: PATIENT WAS FASTINGPERFORMED BY: LabCoRutgers - University Behavioral HealthCareMlukqs8551 [facility] [id number] (47186) ALT (SGPT) 14 [iU]/L (Normal) Range: 0-32 [...] 8-27 Glucose 158 mg/dL (Abnormal) Range: 65-99 9-Drd-396839:07 VITAMIN B-12 (CYANOCOBALAMIN) Comments: PATIENT WAS FASTINGPERFORMED BY: [facility] Wiwfup3177 [facility] [id number] (09854) Vitamin B12 771 pg/mL (Normal) Range: 232-1245 13-May-20170:00 CDIFF (Molecular) Comments: [facility] [address] [place], [place], [address] CDIFF See Note (Normal) Comments: Cdiff-MolecularNormal Reference Range = Negative C. Diff DNA Negative- No toxigenic C. Diff DNA DetectedNAAT METHOD Testing was performed using nucleic acid amplification 05-May-20179:32 Rapid Flu (30482 x 2) Influenza A Ag Negative (Normal) :35 CBC with auto diff (77860) Comments: PATIENT WAS FASTINGPERFORMED BY: Comm[employer] TechnologiesRutgers - University Behavioral HealthCareJykhsq5910 [facility] [id number] Immature Grans (Abs) 0.0 {x10E3/uL} (Normal) Range: [...] PANEL, COMPREHENSIVE Comments: PATIENT WAS FASTINGPERFORMED BY: Comm[employer] TechnologiesRutgers - University Behavioral HealthCareRuwmtg8865 [facility] [id number] (25089) ALT (SGPT) 16 [iU]/L (Normal) Range: 0-32 [...] Glucose, Serum 145 mg/dL (Abnormal) Range: 65-99 16-Muz-474407:51 HgA1C , Office (31604) HgA1C , Office 6.7 % (Normal) Range: 4.6 - 7.1 3-Vmk-120153:50 CALCIFEDIOL (05296) Comments: A courtesy copy of this report has been sent [phone].PATIENT WAS FASTINGPERFORMED BY: [facility]Asc[facility]6370 [facility] [id number] Vitamin D, 25-Hydroxy 40.7 ng/mL (Normal) Range: 30.0-100.0 Comments: Vitamin D deficiency has been defined by the [place] of[place]icine and an Endocrine Society practice guideline as alevel of serum 25-OH vitamin D less than 20 ng/mL (1,2).The Endocrine Society went on to further define vitamin Dinsufficiency as a level between 21 and 29 ng/mL (2).1. IOM ([place] of [place]). 2010. Dietary reference intakes for calcium and D. [place]: The National Academies Press.2. Mira MF, Rosette LOPEZ, Tommy SWAIN, et al. Evaluation, treatment, and prevention of vitamin D deficiency: an Endocrine Society clinical practice guideline. JCEM. 2010; 96(7):1911-30. 2-Gbh-819814:50 PTH (PARATHORMONE) (12074) Comments: A courtesy copy of this report has been sent [phone].PATIENT WAS FASTINGPERFORMED BY: [employer] [place] [id number] PTH, Intact 20 pg/mL (Normal) Range: 15-65 8-Evc-392275:50 MICROALBUMIN: CREATININE RATIO Comments: A courtesy copy of this report has been sent [phone].PATIENT WAS FASTINGPERFORMED BY: [employer]70 [employer] [place] [id number] (89288) AND (80205) Microalb/Creat Ratio 4376.0 {mg/g_creat} (Abnormal) Range: 0.0-30.0 Microalbumin, Urine 3369.5 ug/mL (Normal) Comments: Results confirmed ondilution. Creatinine, Urine 77.0 mg/dL (Normal) 2-Jzu-858040:50 Renal function Panel Comments: A courtesy copy of this report has been sent [phone].PATIENT WAS FASTINGPERFORMED BY: Local.com6370 [facility] [facility] [id number] Information: FX DR. SANTANA [phone] (34061) Albumin, Serum 3.8 g/dL (Normal) Range: 3.5-4.8 [...] Glucose, Serum 203 mg/dL (Abnormal) Range: 65-99 9-Ibg-648613:50 Magnesium (91049) Comments: A courtesy copy of this report has been sent [phone].PATIENT WAS FASTINGPERFORMED BY: Stars ExpressRutgers - University Behavioral HealthCareHfqumj3218 [facility] [id number] Magnesium, Serum 1.8 mg/dL (Normal) Range: 1.6-2.3 :53 CBC with auto diff (50597) Comments: A courtesy copy of this report has been sent [phone].PATIENT WAS FASTINGPERFORMED BY: Stars ExpressRutgers - University Behavioral HealthCareBqffis1390 [facility] [id number] Immature Grans (Abs) 0.0 {x10E3/uL} (Normal) Range: [...] {x10E3/uL} (Normal) Range: 3.4-10.8 :53 LIPID PANEL (34204) Comments: A courtesy copy of this report has been sent [phone].PATIENT WAS FASTINGPERFORMED BY: [facility] ExpressRutgers - University Behavioral HealthCareOxbpth6324 [facility] [id number] LDL/HDL Ratio 1.2 {ratio_units} (Normal) Range: 0.0-3.2 [...] copy of this report has been sent [phone].PATIENT WAS FASTINGPERFORMED BY: Stars ExpressRutgers - University Behavioral HealthCareOcfpkn4857 [facility] [id number] (43953) ALT (SGPT) 11 [iU]/L (Normal) Range: 0-32 [...] Glucose, Serum 205 mg/dL (Abnormal) Range: 65-99 45-Exr-713308:57 HgA1C , Office (73174) HgA1C , Office 7.1 % (Normal) Range: 4.6 - 7.1 :09 LIPID PANEL (05962) Comments: PATIENT WAS FASTINGPERFORMED BY: LabCoRutgers - University Behavioral HealthCareAlwltq2353 [facility] [id number] LDL/HDL Ratio 1.3 {ratio_units} (Normal) Range: 0.0-3.2 [...] WAS FASTINGPERFORMED BY: LabCoRutgers - University Behavioral HealthCareGfuomd3583 [facility] [id number] (57683) ALT (SGPT) 12 [iU]/L (Normal) Range: 0-32 [...] Glucose, Serum 152 mg/dL (Abnormal) Range: 65-99 5-Qor-992792:50 HgA1C , Office (60538) HgA1C , Office 6.7 % (Normal) Range: 4.6 - 7.1 :25 Magnesium, Serum 1.9 mg/dL (Normal) Comments: PATIENT WAS FASTINGPERFORMED BY: LabCoRutgers - University Behavioral HealthCareRtiqmr3306 [facility] [id number] Range: 1.6-2.3 :25 Microalb/Creat Ratio, Randm Ur Comments: PATIENT WAS FASTINGPERFORMED BY: [employer] Zwwyee2939 [address] RoadDublin [place] [id number] Microalb/Creat Ratio 2652.0 {mg/g_creat} Range: 0.0-30.0 (Abnormal) Microalbumin, Urine 2482.3 ug/mL (Normal) Comments: Results confirmed ondilution. Creatinine, Urine 93.6 mg/dL (Normal) PTH, Intact 26 pg/mL (Normal) Comments: PATIENT WAS FASTINGPERFORMED BY: [facility] Owrjvc2467 [address] RoadDublin [place] [id number] :25 Range: 15-65 :25 Renal Panel (10) Comments: PATIENT WAS FASTINGPERFORMED BY: [employer] Pbrpnb2136 [address] RoadDublin [place] [id number] Phosphorus, Serum 4.3 mg/dL (Normal) Range: 2.5-4.5 :25 Thyroxine (T4) Free, Direct, S Comments: PATIENT WAS FASTINGPERFORMED BY: TimberFish TechnologiesSaint John'S Regional Health Center Hjmiiv0434 [address] RoadDublin [place] [id number] T4,Free(Direct) 1.08 ng/dL (Normal) Range: 0.82-1.77 : TSH 2.980 {uIU/mL} Comments: PATIENT WAS FASTINGPERFORMED BY: [employer] Wtqzxj1335 [address] RoadDublin [place] [id number] 25 (Normal) Range: 0.450-4.500 : Vitamin D, 25-Hydroxy 37.1 ng/mL (Normal) Comments: PATIENT WAS FASTINGPERFORMED BY: [facility] Mdfpin6971 [address] RoadDublin [place] [id number] 25 Range: 30.0-100.0 Comments: Vitamin D deficiency has been defined by the [place] of[place]icine and an Endocrine Society practice guideline as alevel of serum 25-OH vitamin D less than 20 ng/mL (1,2).The Endocrine Society went on to further define vitamin Dinsufficiency as a level between 21 and 29 ng/mL (2).1. IOM ([place] of [place]). 2010. Dietary reference intakes for calcium and D. [place]: The National Academies Press.2. Mira MF, Rosette [place], Tommy SWAIN, et al. Evaluation, treatment, and prevention of vitamin D deficiency: an Endocrine Society clinical practice guideline. JCEM. 2010; 96(7):3291-30. :25 CBC W/AUTO DIFF WBC (62460) Comments: PATIENT WAS FASTINGPERFORMED BY: EVE LabAsc[facility] Hospital6370 [facility] [id number] Immature Grans (Abs) 0.0 {x10E3/uL} (Normal) Range: [...] PANEL, COMPREHENSIVE Comments: PATIENT WAS FASTINGPERFORMED BY: Local.com6370 [facility] [id number]; non- emergent till apt (80714) ALT (SGPT) 10 [iU]/L (Normal) Range: 0-32 [...] mg/dL (Abnormal) Range: 65-99 03-Aug-20169:25 LIPID PANEL (02269) Comments: PATIENT WAS FASTINGPERFORMED BY: [employer] TechnologiesRutgers - University Behavioral HealthCareDaxgns7466 [facility] [id number] LDL/HDL Ratio 0.9 {ratio_units} (Normal) Range: 0.0-3.2 [...] (Normal) Range: 100-199 :54 HgA1C , Office (36934) HgA1C , Office 6.6 % (Normal) Range: 4.6 - 7.1 :1 Magnesium, Serum 2.1 mg/dL (Normal) Comments: PATIENT WAS FASTINGPERFORMED BY: NodePingCone Health [id number] 2 Range: 1.6-2.3 :12 Microalb/Creat Ratio, Randm Ur Comments: PATIENT WAS FASTINGPERFORMED BY: NodePingCone Health [id number] Microalb/Creat Ratio 1863.4 {mg/g_creat} (Abnormal) Range: 0.0-30.0 Microalbumin, Urine 1416.2 ug/mL (Normal) Comments: Results confirmed ondilution. Creatinine, Urine 76.0 mg/dL (Normal) :12 Microscopic Examination Comments: PATIENT WAS FASTINGPERFORMED BY: Local.com6370 [facility] [employer]in [place] [id number] Bacteria None seen (Normal) Mucus Threads Present (Normal) Cast Type Hyaline casts (Normal) Casts Present {/lpf} (Abnormal) Epithelial Cells (non 0-10 {/hpf} Range: 0 - 10 renal) (Normal) RBC 3-10 {/hpf} Range: 0 - 2 (Abnormal) WBC 6-10 {/hpf} Range: 0 - 5 (Abnormal) PTH, Intact 36 pg/mL (Normal) Comments: PATIENT WAS FASTINGPERFORMED BY: NodePingin [place] [id number] 0:12 Range: 15-65 Vitamin D, 25-Hydroxy 42.9 ng/mL (Normal) Comments: PATIENT WAS FASTINGPERFORMED BY: Local.com6370 [facility] [id number] 0:12 Range: 30.0-100.0 Comments: Vitamin D deficiency has been defined by the [place] of[place]icine and an Endocrine Society practice guideline as alevel of serum 25-OH vitamin D less than 20 ng/mL (1,2).The Endocrine Society went on to further define vitamin Dinsufficiency as a level between 21 and 29 ng/mL (2).1. IOM ([place] of [place]). 2010. Dietary reference intakes for calcium and D. [place]: The National AcademSocial IQ (Social Influence Quotient) Press.2. Mira MF, [place], Tommy SWAIN, et al. Evaluation, treatment, and prevention of vitamin D deficiency: an Endocrine Society clinical practice guideline. JCEM. 2010; 96(7):1911-30. 25-Mgi-369252:12 URINALYSIS, W/ MICRO (65281) Comments: PATIENT WAS FASTINGPERFORMED BY: Local.com6370 [address] [facility] [id number] Microscopic Examination See below: (Normal) Comments: Microscopic was indicated and was performed. Nitrite, Urine Negative (Normal) Urobilinogen,Semi-Qn 0.2 mg/dL (Normal) Range: 0.2-1.0 Bilirubin Negative (Normal) Occult Blood Negative (Normal) Ketones Negative (Normal) Glucose Negative (Normal) Protein 4+ (Abnormal) WBC Esterase Trace (Abnormal) Appearance Clear (Normal) Urine-Color Yellow (Normal) pH 6.0 (Normal) Range: 5.0-7.5 Specific [place] 1.015 (Normal) Range: 1.005-1.030 80-Fkg-119821:12 CBC W/AUTO DIFF WBC (87852) Comments: PATIENT WAS FASTINGPERFORMED BY: [employer] Dpkswi0261 [facility] [id number] Immature Grans (Abs) 0.0 {x10E3/uL} (Normal) Range: [...] 3.77-5.28 WBC 6.2 {x10E3/uL} (Normal) Range: 3.4-10.8 16-Xln-324861:12 METABOLIC PANEL, COMPREHENSIVE Comments: PATIENT WAS FASTINGPERFORMED BY: LabCoRutgers - University Behavioral HealthCareUvfpmb2922 [facility] [id number] (92596) ALT (SGPT) 14 [iU]/L (Normal) Range: 0-32 [...] Glucose, Serum 154 mg/dL (Abnormal) Range: 65-99 31-Kco-804602:12 LIPID PANEL (76463) Comments: PATIENT WAS FASTINGPERFORMED BY: [employer] [facility] [id number] LDL/HDL Ratio 0.7 {ratio_units} (Normal) Range: 0.0-3.2 Comments: LDL/HDL Ratio Men Women 1/2 Avg.Risk 1.0 1.5 Av g.Risk 3.6 3.2 2X Avg.Risk 6.2 5.0 3X Avg.Risk 8.0 6.1 LDL Cholesterol Calc 49 mg/dL (Normal) Range: 0-99 VLDL Cholesterol Cesar 14 mg/dL (Normal) Range: 5-40 HDL Cholesterol 75 mg/dL (Normal) Triglycerides 68 mg/dL (Normal) Range: 0-149 Cholesterol, Total 138 mg/dL (Normal) Range: 100-199 85-Ate-083740:50 HgA1C , Office (21325) HgA1C , Office 6.7 % (Normal) Range: 4.6 - 7.1 11-Edr-032051:36 VITAMIN B-12 (CYANOCOBALAMIN) Comments: PATIENT WAS FASTINGPERFORMED BY: [employer] [facility] [id number] (42226) Vitamin B12 802 pg/mL (Normal) Range: 211-946 93-Apo-661470:36 LIPID PANEL (33403) Comments: PATIENT WAS FASTINGPERFORMED BY: LabCoRutgers - University Behavioral HealthCareGeoaxc9441 [facility] [id number] LDL/HDL Ratio 0.8 {ratio_units} (Normal) Range: 0.0-3.2 [...] Cholesterol, Total 161 mg/dL (Normal) Range: 100-199 56-Tkz-610001:36 LDH (LD) (LACTATE DEHYDROGENASE) Comments: PATIENT WAS FASTINGPERFORMED BY: Commex TechnologiesRutgers - University Behavioral HealthCareLzhgwk1301 [facility] [id number] (90735) LDH 217 [iU]/L (Normal) Range: 119-226 28-Deq-549226:36 CBC W/AUTO DIFF WBC (62339) Comments: PATIENT WAS FASTINGPERFORMED BY: [employer] TechnologiesRutgers - University Behavioral HealthCareCazzsy1778 [facility] [id number] Immature Grans (Abs) 0.0 {x10E3/uL} (Normal) Range: [...] 3.77-5.28 WBC 10.6 {x10E3/uL} (Normal) Range: 3.4-10.8 69-Qjr-252930:36 METABOLIC PANEL, COMPREHENSIVE Comments: PATIENT WAS FASTINGPERFORMED BY: LabCoRutgers - University Behavioral HealthCareRotkeg0941 [facility] [id number] (75522) ALT (SGPT) 15 [iU]/L (Normal) Range: 0-32 [...] Glucose, Serum 137 mg/dL (Abnormal) Range: 65-99 80-Vst-462783:36 TSH (70019) Comments: PATIENT WAS FASTINGPERFORMED BY: Local.com6370 [facility] [id number] TSH 0.560 {uIU/mL} (Normal) Range: 0.450-4.500 :02 Renal function Panel (18511) Comments: PATIENT WAS FASTINGPERFORMED BY: Local.com6370 [facility] [id number] Albumin, Serum 3.7 g/dL (Normal) Range: 3.5-4.8 [...] 137 mg/dL (Abnormal) Range: 65-99 :02 MAGNESIUM (03403) Comments: PATIENT WAS FASTINGPERFORMED BY: TimberFish TechnologiesAscension Providence Rochester Hospital6370 [facility] [id number] Magnesium, Serum 2.2 mg/dL (Normal) Range: 1.6-2.3 :02 MICROALBUMIN: CREATININE RATIO Comments: PATIENT WAS FASTINGPERFORMED BY: LabAscension [facility] Hospital6370 [facility] [id number] (47257) AND (48799) Microalb/Creat Ratio 2038.7 {mg/g_creat} (Abnormal) Range: 0.0-30.0 Microalbumin, Urine 1223.2 ug/mL (Normal) Comments: Results confirmed ondilution. Creatinine, Urine 60.0 mg/dL (Normal) :02 CBC WITH MANUAL DIFF Comments: PATIENT WAS FASTINGPERFORMED BY: LabInteractive FitnessRutgers - University Behavioral HealthCareChtpay5707 [facility] [id number] Information: [id number] CC:[id number] (22268) Immature Grans (Abs) 0.0 {x10E3/uL} (Normal) Range: [...] {x10E3/uL} (Normal) Range: 3.4-10.8 :02 HGB A1C (95291) Comments: PATIENT WAS FASTINGPERFORMED BY: [employer] Lseico3961 [facility] [id number] Hemoglobin A1c 6.4 % (Abnormal) Range: 4.8-5.6 Comments: . Pre-diabetes: 5.7 - 6.4 Diabetes: >6.4 Glycemic control for adults with diabetes: <7.0 :02 Lipid Panel (59207) Comments: PATIENT WAS FASTINGPERFORMED BY: Augmentra70 [facility] [id number] LDL/HDL Ratio 1.1 {ratio_units} (Normal) Range: 0.0-3.2 [...] Cholesterol, Total 160 mg/dL (Normal) Range: 100-199 64-Egd-017325:03 HgA1C , Office (12230) HgA1C , Office 6.1 % (Normal) Range: 4.6 - 7.1 :24 CBC W/AUTO DIFF WBC Comments: PATIENT WAS FASTINGPERFORMED BY: TimberFish TechnologiesCoRutgers - University Behavioral HealthCareBzguvc0326 [facility] [id number] Information: [id number] (08436) Immature Grans (Abs) 0.0 {x10E3/uL} (Normal) Range: [...] WAS FASTINGPERFORMED BY: LabCoRutgers - University Behavioral HealthCareTzpkql6697 [facility] [id number] (75537) AND (84399) Microalb/Creat Ratio 1223.8 {mg/g_creat} (Abnormal) Range: 0.0-30.0 Microalbumin, Urine 1012.1 ug/mL (Abnormal) Range: 0.0-17.0 Comments: Results confirmed ondilution. Creatinine, Urine 82.7 mg/dL (Normal) Range: 15.0-278.0 :24 METABOLIC PANEL, COMPREHENSIVE Comments: PATIENT WAS FASTINGPERFORMED BY: [employer] [facility] [id number] (90808) ALT (SGPT) 12 [iU]/L (Normal) Range: 0-32 [...] mg/dL (Abnormal) Range: 65-99 :24 LIPID PANEL (80910) Comments: PATIENT WAS FASTINGPERFORMED BY: Tars[facility] Medicalox RoadDublin [place] [id number] LDL/HDL Ratio 1.1 {ratio_units} (Normal) Range: 0.0-3.2 [...] Cholesterol, Total 150 mg/dL (Normal) Range: 100-199 87-Sec-73003:30 CBC W/Diff, Automated Comments: [facility] [address] [place], [place], [address] Absolute Lymph 0.83 {X10_3/ul} (Normal) Range: 0.83-4.51 [...] (Normal) Range: 4.4-11.0 :30 Hemoglobin A1c Comments: [facility] [address]ou[address] [place], [place], [address] HGB A1C 6.1 % (Normal) Range: 4.2-6.3 :30 Magnesium Comments: [facility] [address] [place], [place], [id number] MG 1.8 mg/dL (Normal) Range: 1.8-2.4 :30 Protein+Creatinine Ratio,Urine Comments: [facility] Fuinemgawc[address] [place], [place], [id number] PROT:CRE RATIO 2121 {mg/g_CRE} (Abnormal) Range: 0-200 PROTEIN,UR.RAN. 164.2 mg/dL (Abnormal) UR CREAT 77.40 mg/dL (Normal) :30 Renal Profile Comments: [address] [place], [place], [address] CO2 27.0 mmol/L (Normal) Range: 21.0-32.0 CL [...] 126 mg/dLsuggests DIABETES MELLITUS per A.D.A. criteria. 87-Cro-21324:00 24 HR UR Creatinine Clearance Comments: [facility] [address] [place], [place], [address] CREAT CLEARANCE 24 ml/min (Abnormal) Range: 100-200 URINE CREAT 20.6 mg/dL (Normal) EST GFR - AA 38 mL/min (Abnormal) Comments: GFR Calc EST GFR 31 mL/min (Abnormal) Comments: Non- GFR Calc SERUM CREAT 1.7 mg/dL (Abnormal) Range: 0.6-1.0 UR TOTAL VOLUME 2800 mL (Normal) UR COLLECT TIME 24.0 {HOURS} (Normal) 99-Sbj-69490:00 Protein, Urine 24HR Comments: [facility] [address] [place], [place], [address] 24hr UR PROTEIN 1178.8 {mg/24HR} (Abnormal) URINE PROTEIN 42.1 mg/dL (Abnormal) UR TOTAL VOLUME 2800 mL (Normal) UR COLLECT TIME 24.0 {HOURS} (Normal) 4-Xti-919701:29 Metabolic Panel, Basic Comments: PATIENT NOT FASTINGPERFORMED BY: LabCoRutgers - University Behavioral HealthCareVzoqpz3855 [facility] [id number] Information: [id number] (54980) Calcium, Serum 9.3 mg/dL (Normal) Range: 8.7-10.3 [...] Basic Comments: tuesday; PATIENT NOT FASTINGPERFORMED BY: LabInteractive FitnessRutgers - University Behavioral HealthCareAoewta1745 [facility] [id number] Information: [id number] (24151) Calcium, Serum 9.0 mg/dL (Normal) Range: 8.7-10.3 [...] Glucose, Serum 149 mg/dL (Abnormal) Range: 65-99 85-Xsq-429573:32 HgA1C , Office (96932) HgA1C , Office 6.2 % (Normal) Range: 4.6 - 7.1 :31 Rapid Strep Test, Office (99599) Comments: neg Rapid Strep Test, Office Negative (Normal) :06 THROAT CULTURE (67533) Comments: PATIENT NOT FASTINGPERFORMED BY: LabCoRutgers - University Behavioral HealthCareGkvczz7666 [facility] [id number] Information: [id number] Result 1 RRF (Normal) Comments: Routine respiratory luis Upper Respiratory Culture Final report (Normal) :52 TSH (86308) Comments: PATIENT WAS FASTINGPERFORMED BY: [facility]Co Vxyueu1532 [facility] [id number] TSH 2.190 {uIU/mL} (Normal) Range: 0.450-4.500 :52 Vitamin D Hydroxy (03432) Comments: PATIENT WAS FASTINGPERFORMED BY: [facility] Lplsas3575 [facility] [id number] Vitamin D, 25-Hydroxy 43.8 ng/mL (Normal) Range: 30.0-100.0 Comments: Vitamin D deficiency has been defined by the [place] of[place]icine and an Endocrine Society practice guideline as alevel of serum 25-OH vitamin D less than 20 ng/mL (1,2).The Endocrine Society went on to further define vitamin Dinsufficiency as a level between 21 and 29 ng/mL (2).1. IOM ([place] of Medicine). 2010. Dietary reference intakes for calcium and D. [place]: The National Academies Press.2. Mira MF, Rosette LOPEZ, Tommy SWAIN, et al. Evaluation, treatment, and prevention of vitamin D deficiency: an Endocrine Society clinical practice guideline. JCEM. 2010; 96(7):1911-30. :52 LIPID PANEL (78491) Comments: PATIENT WAS FASTINGPERFORMED BY: [facility]CoR[facility] Behavior[facility] HealthCareBvsjmu3571 [facility] [id number] LDL/HDL Ratio 1.3 {ratio_units} (Normal) Range: 0.0-3.2 [...] auto diff Comments: PATIENT WAS FASTINGPERFORMED BY: [facility]6370 [facility] [id number] Information: [id number] (10488) Immature Grans (Abs) 0.0 {x10E3/uL} (Normal) Range: [...] PATIENT WAS FASTINGPERFORMED BY: [facility]6370 [facility] [id number] (25604) ALT (SGPT) 19 [iU]/L (Normal) Range: 0-32 [...] Glucose, Serum 127 mg/dL (Abnormal) Range: 65-99 9-Cnl-508292:08 HgA1C , Office (60507) HgA1C , Office 6.4 % (Normal) Range: 4.6 - 7.1 3-Sor-682096:00 Creatinine Clearance Comments: PATIENT NOT FASTINGPERFORMED BY: [facility]CoR[facility] HealthCareQwmylx8218 [facility] [id number] Information: [id number] S TART Creatinine Clearance 33 mL/min (Abnormal) Range: 88-128 Comments: The above range is based on 1.73 square meter average body surfacearea. Creatinine, Ur 24hr 642.0 {mg/24_hr} (Abnormal) Range: 800.0-1800.0 Creatinine, Urine 34.7 mg/dL (Normal) Range: 15.0-278.0 eGFR If Africn Am 43 mL/min/1.73 (Abnormal) eGFR If NonAfricn Am 37 mL/min/1.73 (Abnormal) Creatinine, Serum 1.37 mg/dL (Abnormal) Range: 0.57-1.00 8-Uin-286931:00 Protein Total, Qn, 24-Hr Comments: PATIENT NOT FASTINGPERFORMED BY: [facility] Uqffbn7529 [facility] [id number] Urine Prot,24hr calculated 1309.8 {mg/24_hr} (Abnormal) Range: 30.0-150.0 Protein,Total,Urine 70.8 mg/dL (Abnormal) Range: 0.0-15.0 09-Oct-20149:01 CBC W/Diff, Automated Comments: Test performed at:[facility] U[address]jelngvo[address] [place] [address] Absolute Neut 3.1 {X10_3/uL} (Normal) [...] Range: 4.4-11.0 :01 Magnesium Comments: Test performed at:[facility] Zksshri[address]ud[address] [place] [address] 68462 MG 2.0 mg/dL (Normal) Range: 1.8-2.4 :01 Protein+Creatinine Ratio,Urine Comments: Test performed at:[facility] Pjcl[address]af[address] [place] [address] 21676 PROT:CRE RATIO 2232 {mg/g_CRE} (Abnormal) Range: 0-200 PROTEIN,UR.RAN. 160.3 mg/dL (Abnormal) UR CREAT 71.8 mg/dL (Normal) :01 Renal Profile Comments: Test performed at:[facility] R[address] [place] [address] 757331 CO2 32.0 mmol/L (Normal) Range: 21.0-32.0 CL [...] mg/dL (Normal) Range: 70-110 :08 LIPID PANEL (63230) Comments: PATIENT WAS FASTINGPERFORMED BY: [facility] HealthCareXdfvqr2267 [facility] [id number] LDL/HDL Ratio 1.0 {ratio_units} (Normal) Range: 0.0-3.2 [...] Cholesterol, Total 149 mg/dL (Normal) Range: 100-199 00-Wld-88671:08 METABOLIC PANEL, Comments: PATIENT WAS FASTINGPERFORMED BY: [facility]Co[facility] HealthCareAxodoh0341 [facility] [id number] Information: [id number] COMPREHENSIVE (48829) ALT (SGPT) 29 [iU]/L (Normal) Range: 0-32 [...] (Abnormal) Range: 65-99 :59 HgA1C , Office (37291) HgA1C , Office 6.5 % (Normal) Range: 4.6 - 7.1 :54 CBC W/AUTO DIFF WBC Comments: PATIENT WAS FASTINGPERFORMED BY: [facility]Co[facility] HealthCareSgsanb4901 [facility] [id number] Information: [id number] (10859) Immature Grans (Abs) 0.0 {x10E3/uL} (Normal) Range: [...] PANEL, COMPREHENSIVE Comments: PATIENT WAS FASTINGPERFORMED BY: [employer]70 [facility] [id number]; non- emergent till apt (31280) ALT (SGPT) 13 [iU]/L (Normal) Range: 0-32 [...] mg/dL (Abnormal) Range: 65-99 :54 LIPID PANEL (76567) Comments: PATIENT WAS FASTINGPERFORMED BY: [employer]6370 [facility] [id number] LDL/HDL Ratio 1.1 {ratio_units} (Normal) Range: 0.0-3.2 [...] (Normal) Range: 100-199 :29 HgA1C , Office (61826) HgA1C , Office 6.6 % (Normal) Range: 4.6 - 7.1 :12 CBC W/Diff, Automated Comments: Test performed at:[facility] Rbohbzangj2243 [place], [place] [address] ; handled by Dr. Santana Absolute Lymph [...] Range: 4.4-11.0 :12 Magnesium Comments: Test performed at:[facility] Mbxwij[address] [place] [address] MG 2.0 mg/dL (Normal) Range: 1.8-2.4 :12 Microalb:Creat Ratio,Random UR Comments: Test performed at:[facility] [address] [place] [address] ; Dr. Angelo LING:CREAT 1483.0 {mg/g_CRE} (Abnormal) MICROALBUMIN,UR 918.0 mg/L (Normal) UR CREAT 61.9 mg/dL (Normal) :12 Renal Profile Comments: Test performed at:[facility] [address]nskeg[address] [place] [address] CO2 29.0 mmol/L (Normal) Range: 21.0-32.0 CL [...] 126 mg/dLsuggests DIABETES MELLITUS per A.D.A. criteria. 60-Ugs-610013:20 LIPID PANEL (87866) Comments: PATIENT WAS FASTINGPERFORMED BY: Commex TechnologiesRutgers - University Behavioral HealthCareIiztcn1996 [facility] [id number] LDL/HDL Ratio 1.0 {ratio_units} (Normal) Range: 0.0-3.2 [...] Cholesterol, Total 151 mg/dL (Normal) Range: 100-199 80-Upq-515659:20 METABOLIC PANEL, Comments: PATIENT WAS FASTINGPERFORMED BY: Commex TechnologiesRutgers - University Behavioral HealthCareTqeczs7931 [facility] [id number] Information: [id number] COMPREHENSIVE (45697) ALT (SGPT) 16 [iU]/L (Normal) Range: 0-32 [...] Glucose, Serum 148 mg/dL (Abnormal) Range: 65-99 72-Own-684992:21 CREATININE CLEARANCE Comments: PATIENT WAS FASTINGPERFORMED BY: Commex TechnologiesRutgers - University Behavioral HealthCareRrqibw6374 [facility] [id number] Information: [id number] START 04/02/14@9AM FINISH 04/03/14 6:00 AM (13869) Creatinine Clearance 42 mL/min (Abnormal) Range: 88-128 Comments: The above range is based on 1.73 square meter average body surfacearea. Creatinine, Ur 24hr 812.3 {mg/24_hr} (Normal) Range: 800.0-1800.0 Creatinine, Urine 28.5 mg/dL (Normal) Range: 15.0-278.0 eGFR If Africn Am 45 mL/min/1.73 (Abnormal) eGFR If NonAfricn Am 39 mL/min/1.73 (Abnormal) Creatinine, Serum 1.33 mg/dL (Abnormal) Range: 0.57-1.00 80-Hvs-900584:21 Total Protein,24 Hour Urine Comments: PATIENT WAS FASTINGPERFORMED BY: Commex TechnologiesRutgers - University Behavioral HealthCareWntdir1017 [facility] [id number] (17495) Prot,24hr calculated 1559.0 {mg/24_hr} (Abnormal) Range: 30.0-150.0 Protein,Total,Urine 54.7 mg/dL (Abnormal) Range: 0.0-15.0 :57 LIPID PANEL (68546) Comments: PATIENT WAS FASTINGPERFORMED BY: [employer] Isbjyx7063 [facility] [id number] LDL/HDL Ratio 1.1 {ratio_units} (Normal) Range: 0.0-3.2 [...] WAS FASTINGPERFORMED BY: LabCoR[facility] Behavioral HealthCareUmegwm2016 [facility] [id number] Information: [id number] (41961) Immature Grans (Abs) 0.0 {x10E3/uL} (Normal) Range: [...] PANEL, COMPREHENSIVE Comments: PATIENT WAS FASTINGPERFORMED BY: [facility]6370 [facility] [id number] (10507) ALT (SGPT) 10 [iU]/L (Normal) Range: 0-32 [...] Units: mg/dL AdultPerformed at: [facility] - [facility] Dlfqtu2841 [place], [place] [address]Hih Director: Yousuf Bernardo PhD, Phone: [phone] C4 37 (Abnormal) Range: 9-36 0 [...] 75.6 mg/dL (Abnormal) CREU 49.3 mg/dL (Normal) 96-Aow-43879:21 CBC WITH MANUAL DIFF Comments: PATIENT WAS FASTINGPERFORMED BY: LabCoR[facility] Behavioral HealthCareLjjyna6135 [facility] [id number] Information: [id number] (15444) Immature Grans (Abs) 0.0 {x10E3/uL} (Normal) Range: [...] 3.77-5.28 WBC 4.5 {x10E3/uL} (Normal) Range: 3.4-10.8 05-Mhq-86230:21 METABOLIC PANEL, COMPREHENSIVE Comments: PATIENT WAS FASTINGPERFORMED BY: [facility]Co[facility] Behavior[facility] HealthCareMubkve0653 [facility] [id number] (60186) ALT (SGPT) 16 [iU]/L (Normal) Range: 0-32 [...] Glucose, Serum 132 mg/dL (Abnormal) Range: 65-99 95-Laq-388887:53 CREATININE CLEARANCE Comments: PATIENT NOT FASTINGPERFORMED BY: [employer] Bzcale4238 [facility] [id number] Information: [id number] START 10/30/13@8AM F INISH 10/31/13@8AM 2650ML (61202) Creatinine Clearance 44 mL/min (Abnormal) Range: 88-128 [...] Hour Urine Comments: PATIENT NOT FASTINGPERFORMED BY: Stars ExpressRutgers - University Behavioral HealthCareQhhukx2910 [facility] [id number] (62940) Prot,24hr calculated 3458.3 {mg/24_hr} (Abnormal) Range: 30.0-150.0 Protein,Total,Urine 130.5 mg/dL (Abnormal) Range: 0.0-15.0 06-Qmj-922895:31 HgA1C , Office (16922) HgA1C , Office 6.4 % (Normal) Range: 4.6 - 7.1 42-Idj-349287:27 Microscopic Examination Comments: PATIENT WAS FASTINGPERFORMED BY: Commex TechnologiesLea Regional Medical CenterMqqgea4281 [facility] [id number] Bacteria Few (Normal) Mucus Threads Present (Normal) Epithelial Cells (non renal) 0-10 {/hpf} (Normal) Range: 0 - 10 RBC 3-10 {/hpf} (Abnormal) Range: 0 - 2 WBC 6-10 {/hpf} (Abnormal) Range: 0 - 5 :32 LIPID PANEL (54754) Comments: PATIENT WAS FASTINGPERFORMED BY: Commex TechnologiesLea Regional Medical CenterNdflox0349 [facility] [id number] LDL/HDL Ratio 1.0 {ratio_units} (Normal) Range: 0.0-3.2 [...] CREATININE RATIO Comments: PATIENT WAS FASTINGPERFORMED BY: Commex TechnologiesRutgers - University Behavioral HealthCareViklfm5857 [facility] [id number] (34702) AND (32566) Microalb/Creat Ratio 1998.9 {mg/g_creat} (Abnormal) Range: 0.0-30.0 Creatinine, Urine 73.4 mg/dL (Normal) Range: 15.0-278.0 Microalbumin, Urine 1467.2 ug/mL (Abnormal) Range: 0.0-17.0 :32 URINALYSIS, W/ MICRO (86472) Comments: PATIENT WAS FASTINGPERFORMED BY: TimberFish TechnologiesAscension Providence Rochester Hospital6370 [facility] [id number] Microscopic Examination See below: (Normal) Comments: Microscopic was indicated and was performed. Nitrite, Urine Negative (Normal) Urobilinogen,Semi-Qn 0.2 mg/dL (Normal) Range: 0.0-1.9 Bilirubin Negative (Normal) Occult Blood Trace (Abnormal) Ketones Negative (Normal) Glucose Negative (Normal) Protein 3+ (Abnormal) WBC Esterase Trace (Abnormal) Appearance Clear (Normal) Urine-Color Yellow (Normal) pH 6.5 (Normal) Range: 5.0-7.5 Specific [place] 1.015 (Normal) Range: 1.005-1.030 :32 CBC WITH MANUAL DIFF Comments: PATIENT WAS FASTINGPERFORMED BY: LabJacob [place]ille 9618770 [facility] [id number] Information: [id number] (67626) Immature Grans (Abs) 0.0 {x10E3/uL} (Normal) Range: [...] PATIENT WAS FASTINGPERFORMED BY: [facility]6370 [facility] [id number] (93689) ALT (SGPT) 16 [iU]/L (Normal) Range: 0-32 [...] WAS FASTINGPERFORMED BY: LabCoR[facility] Behavioral HealthCareSlcdkq3592 [facility] [id number] (48577) Vitamin B12 >1999 pg/mL (Abnormal) Range: 211-946 :01 HgA1C , Office (23922) HgA1C , Office 6.4 % (Normal) Range: 4.6 - 7.1 :37 METABOLIC PANEL, COMPREHENSIVE Comments: PATIENT WAS FASTINGPERFORMED BY: LabCoR[facility] Behavioral HealthCareSediao4912 [facility] [id number] (81174) ALT (SGPT) 12 [iU]/L (Normal) Range: 0-32 [...] (Abnormal) Range: 65-99 :37 Vitamin D Hydroxy (66208) Comments: PATIENT WAS FASTINGPERFORMED BY: [employer] Wyeclh9070 [facility] [id number] Vitamin D, 25-Hydroxy 47.4 ng/mL (Normal) Range: 30.0-100.0 Comments: Vitamin D deficiency has been defined by the [place] ofA[facility] Hospitalcine and an Endocrine Society practice guideline as alevel of serum 25-OH vitamin D less than 20 ng/mL (1,2).The Endocrine Society went on to further define vitamin Dinsufficiency as a level between 21 and 29 ng/mL (2).1. IOM ([place] of Medicine). 2010. Dietary reference intakes for calcium and D. [place]: The National Academies Press.2. Mira MF, Rosette NC, Tommy SWAIN, et al. Evaluation, treatment, and prevention of vitamin D deficiency: an Endocrine Society clinical practice guideline. JCEM. 2010; 96(7):1911-30. :37 LIPID PANEL (09899) Comments: PATIENT WAS FASTINGPERFORMED BY: [employer] Xawpbe6217 [facility] [id number] LDL/HDL Ratio 1.2 {ratio_units} (Normal) Range: 0.0-3.2 [...] MANUAL DIFF Comments: PATIENT WAS FASTINGPERFORMED BY: TimberFish TechnologiesAscension Providence Rochester Hospital6370 [facility] [id number] Information: [id number] (89686) Immature Grans (Abs) 0.0 {x10E3/uL} (Normal) Range: [...] Qn, 24-Hr Comments: PATIENT NOT FASTINGPERFORMED BY: [employer]70 [facility] [id number] Information: ADD [id number] AND DRAW FEE 99 6660 VOLUME 2600 164LBS 5' '3 Urine Prot,24hr calculated 920.4 {mg/24_hr} Range: 30.0-150.0 (Abnormal) Protein,Total,Urine 35.4 mg/dL Range: 0.0-15.0 (Abnormal) : Written Authorization WAR (Normal) Comments: PATIENT NOT FASTINGPERFORMED BY: [employer] Dyzzkn2786 [facility] [id number] Comments: Written Authorization Received.Authorization received from Chiqui BRICEÑO LPN [id number] by Marleen Sharma :52 Metabolic Panel, Basic Comments: PATIENT NOT FASTINGPERFORMED BY: [employer] Vqvjxk3156 [facility] [id number] Information: ADD [id number] AND DRAW FEE 99 6660 VOLUME 2600 164LBS 5' '3 (61062) Calcium, Serum 9.7 mg/dL (Normal) Range: 8.6-10.2 [...] mg/dL (Abnormal) Range: 65-99 :52 CREATININE CLEARANCE (72020) Comments: PATIENT NOT FASTINGPERFORMED BY: Commex TechnologiesRutgers - University Behavioral HealthCareOsmsjy6959 [facility] [id number] Creatinine Clearance 46 mL/min (Abnormal) Range: 88-128 Comments: The above range is based on 1.73 square meter average body surfacearea. Creatinine, Ur 24hr 899.6 {mg/24_hr} (Normal) Range: 800.0-1800.0 Creatinine, Urine 34.6 mg/dL (Normal) Range: 15.0-278.0 :52 24 hour urine for Protein Comments: PATIENT NOT FASTINGPERFORMED BY: Commex TechnologiesRutgers - University Behavioral HealthCareTnlssm3433 [facility] [id number] (05779) Microalb/Creat Ratio 695.4 {mg/g_creat} (Abnormal) Range: 0.0-30.0 Microalbumin, Urine 240.6 ug/mL (Abnormal) Range: 0.0-17.0 :13 HgA1C , Office (64034) HgA1C , Office 6.3 % (Normal) Range: 4.6 - 7.1 4-Qnh-921429:01 Blood Glucose , Office (75612) Blood Glucose , Office 162 (Normal) 45-Ccl-798984:02 Microscopic Examination Comments: PATIENT NOT FASTINGPERFORMED BY: [facility] Vjhwrj4547 [facility] [id number] Bacteria Few (Normal) Mucus Threads Present (Normal) [...] Hebert M.D.October 19, 2012 at 2:42:14 PM [id number] Signed GP/GP If you are the referring physician and would like to consult [facility] theradiologist who provided this interpretation, please contact Yasmany Pond at [phone]. If this radiologist is unavailable, youwill be directed to another radiologist to assist. If y ou are a patient with a question regarding this report, pleasecontactyour referring physician directly. Professional Interpretation Provided By: [employer], Phone , These documents contain legally [...] Sign by: Misael Hebert MD :59 TSH (01146) Comments: PATIENT WAS FASTINGPERFORMED BY: [facility]6370 [facility] [id number] TSH 1.230 {uIU/mL} (Normal) Range: 0.450-4.500 :59 LIPID PANEL (16369) Comments: PATIENT WAS FASTINGPERFORMED BY: [address] [id number] LDL/HDL Ratio 0.5 {ratio_units} (Normal) Range: 0.0-3.2 LDL Cholesterol Calc 47 mg/dL (Normal) Range: 0-99 Cholesterol, Total 149 mg/dL (Normal) Range: 100-199 HDL Cholesterol 91 mg/dL (Normal) Comments: According to ATP-III Guidelines, HDL-C >59 mg/dL is considered anegative risk factor for CHD. Triglycerides 57 mg/dL (Normal) Range: 0-149 VLDL Cholesterol Cesar 11 mg/dL (Normal) Range: 5-40 00-Fmh-757208:02 URINALYSIS, W/ MICRO Comments: PATIENT NOT FASTINGPERFORMED BY: [address] [id number] Information: [id number] (25774) Microscopic Examination See below: (Normal) Nitrite, Urine Negative (Normal) Bilirubin Negative (Normal) Urobilinogen,Semi-Qn 0.2 mg/dL (Normal) Range: 0.0-1.9 Occult Blood Negative (Normal) Ketones Negative (Normal) Glucose Negative (Normal) Protein 3+ (Abnormal) WBC Esterase Negative (Normal) Appearance Clear (Normal) Urine-Color Yellow (Normal) pH 5.5 (Normal) Range: 5.0-7.5 Specific [place] 1.015 (Normal) Range: 1.005-1.030 :59 CBC WITH MANUAL DIFF Comments: PATIENT WAS FASTINGPERFORMED BY: [place] 3536270 [facility] [id number] Information: [id number] (73889) Immature Grans (Abs) 0.0 {x10E3/uL} (Normal) Range: [...] 3.77-5.28 WBC 4.8 {x10E3/uL} (Normal) Range: 3.4-10.8 58-Gad-641453:59 METABOLIC PANEL, COMPREHENSIVE Comments: PATIENT WAS FASTINGPERFORMED BY: LabCoR[facility] - University Behavioral HealthCareFnpcgq5953 [facility] [id number] (11962) ALT (SGPT) 14 [iU]/L (Normal) Range: 0-32 [...] Glucose, Serum 104 mg/dL (Abnormal) Range: 65-99 6-Yyt-747305:37 HgA1C , Office (35954) HgA1C , Office 6.0 % (Normal) Range: 4.6 - 7.1 2-Zgc-514661:31 CRE CREAT 1.3 mg/dL (Abnormal) Range: 0.6-1.0 8-May-73568:00 BRAIN W/WO CONTRAST Radiology Report See Note [...] Galan M.D.August 09, 2012 at 2:38:03 PM [id number] Signed PV/PV If you are the referring physician and would like to consult with theradiologist who provided this interpretation, please contact Donna Burnett M.D. at [phone]. If this radiologist is unavailable, youwillbe directed [...] 08/09/12 1441 Sign by: Donna Martin MD 31-Ppq-021044:31 CBC with manual diff Comments: PATIENT NOT FASTINGPERFORMED BY: LabCoR[facility] - [facility] Behavioral HealthCareSuifjv2369 [facility] [id number] Information: [id number] (32189) Immature Grans (Abs) 0.0 {x10E3/uL} (Normal) Range: [...] 3.77-5.28 WBC 3.2 {x10E3/uL} (Abnormal) Range: 4.0-10.5 50-Lhm-627149:31 Metabolic Panel, Comprehensive Comments: PATIENT NOT FASTINGPERFORMED BY: LabCoR[facility] - [facility] Behavioral HealthCareVfdzgn5590 [facility] [id number] (50116) ALT (SGPT) 19 [iU]/L (Normal) Range: 0-32 [...] mg/dL (Abnormal) Range: 65-99 :31 LIPID PANEL (04894) Comments: PATIENT WAS FASTINGPERFORMED BY: Commex TechnologiesRutgers - University Behavioral HealthCareMgvmzo9278 [facility] [id number] LDL/HDL Ratio 0.8 {ratio_units} (Normal) Range: 0.0-3.2 [...] MANUAL DIFF Comments: PATIENT WAS FASTINGPERFORMED BY: LabInteractive FitnessRutgers - University Behavioral HealthCareCqaloq3282 [facility] [id number] Information: [id number] (96845) Immature Grans (Abs) 0.0 {x10E3/uL} (Normal) Range: [...] WAS FASTINGPERFORMED BY: LabCoR[facility] - [facility] Behavioral HealthCareHbhyzk9787 [facility] [id number] (80914) ALT (SGPT) 22 [iU]/L (Normal) Range: 0-32 [...] (Abnormal) Range: 65-99 :45 HgA1C , Office (82636) HgA1C , Office 6.1 % (Normal) Range: 4.6 - 7.1 31-Qzf-027183:16 CRE CREAT 1.1 mg/dL (Abnormal) Range: 0.6-1.0 29-Kzv-24974:00 BRAIN W/WO CONTRAST Radiology Report See Note [...] Galan M.D.February 02, 2012 at 5:10:18 PM [id number] Signed PV/PV If you are the referring physician and w sarahild like to consult with theradiologist who provided this interpretation, please contact Donna Burnett M.D. at [phone]. If this radiologist is unavailable, youwillbe directed to another radiol ogist to assist. If you are a patient with a question regarding this report, pleasecontactyour referring physician directly. Professional Interpretation Provided By: [employer], Phone ,Fa x [phone] These documents contain legally protected and confidential [...] 1714 S ign by: Donna Martin MD 71-Shh-695678:16 DEXA BONE DENSITY STUDY (HP) Radiology Report [...] Coronel M.D.January 20, 2012 at 2:43:46 PM [id number] Signed KERA/KERA If you ar e the [...] on 01/20/121446 Sign by: David Coronel MD 96-Jgi-808358:15 BILAT SCRN DIGITAL & CAD Radiology Report [...] Coronel M.D.January 20, 2012 at 1:20:11 PM [id number] Signed KERA/KERA If you are the referring physician and would like to consult with theradiologist who provided this interpretation, please contact Yasmany Parnell at . If this radiologist is unavailable,youwill be directed to another radiologist to assist. If you are a patient with a question regarding this report, pleasecontactyour referring physician directly. Professional Interpretation Provided By: [employer], Phone , These documents contain legally [...] 01/20/12 1324 Sign by: David Coronel MD 8-Gzl-952890:56 PELVIC (NON ) Radiology Report See Note [...] Vuong M.D.January 10, 2012 at 8:39:09 PM [id number] Signed JL/JOHNNY If you are the referring physician and would like to consult with theradiologist who provided this inte rpretation, please contact Radha Vuong M.D. at [phone]. If this radiologist is unavailable, you will bedirected to another radiologist to assist. If you are a patient with a question regarding this r eport, pleasecontactyour referring physician directly. Professional Interpretation Provided By: [employer], Phone , PROCEDURE: ULTRASOUND OF THE [...] Vuong M.D.January 10, 2012 at 8:40:07 PM [id number] Signed JL/JL If you are the referring physician and would like to consult with theradiologist who provided this interpretation, please contact Radha Vuong M.D. at [phone]. If this radiologist is unavailable, you will bedirected to another radiologist to assist. If you are a patient with a question regarding this report, pleasecontactyour referring ysician directly. Professional Interpretation Provided By: [employer], Phone , These documents contain legally [...] Dictated on 01/10/12 1309 by TATIANA VUONG MDNemours [facility], [place] on 01/11/12 1113 by ITS IMPORTSign by RADHA VUONG MD on 01/11/12 1114 Sign by: RADHA VUONG MD :35 MICROALBUMIN: CREATININE RATIO Comments: PATIENT WAS FASTINGPERFORMED BY: Commex TechnologiesRutgers - University Behavioral HealthCareLmgwjp8263 [facility] [id number] (09623) AND (19580) Microalb/Creat Ratio 829.4 {mg/g_creat} (Abnormal) Range: 0.0-30.0 Microalbumin, Urine 437.1 ug/mL (Abnormal) Range: 0.0-17.0 Creatinine, Urine 52.7 mg/dL (Normal) Range: 15.0-278.0 :35 CBC WITH MANUAL DIFF Comments: PATIENT WAS FASTINGPERFORMED BY: [employer] Rzkuqu4836 [facility] [id number] Information: [id number] (96553) Immature Grans (Abs) 0.0 {x10E3/uL} (Normal) Range: [...] WAS FASTINGPERFORMED BY: LabCoRutgers - University Behavioral HealthCareIsvago6802 [facility] [id number] (99576) ALT (SGPT) 15 [iU]/L (Normal) Range: 0-32 [...] mg/dL (Abnormal) Range: 65-99 :35 LIPID PANEL (08913) Comments: PATIENT WAS FASTINGPERFORMED BY: Commex TechnologiesRutgers - University Behavioral HealthCareSuuchu5646 [facility] [id number] LDL/HDL Ratio 0.9 {ratio_units} (Normal) Range: 0.0-3.2 LDL Cholesterol Calc 72 mg/dL (Normal) Range: 0-99 HDL Cholesterol 83 mg/dL (Normal) Comments: According to ATP-III Guidelines, HDL-C >59 mg/dL is considered anegative risk factor for CHD. VLDL Cholesterol Cesar 18 mg/dL (Normal) Range: 5-40 Triglycerides 90 mg/dL (Normal) Range: 0-149 Cholesterol, Total 173 mg/dL (Normal) Range: 100-199 :15 HgA1C , Office (00166) HgA1C , Office 6.2 % (Normal) Range: 4.6 - 7.1 :30 CBC WITH MANUAL DIFF Comments: PATIENT WAS FASTINGPERFORMED BY: LabCoR[facility]al HealthCareXetkdw1473 [facility] [id number] Information: [id number] (73785) Immature Grans (Abs) 0.0 {x10E3/uL} (Normal) Range: [...] 3.77-5.28 WBC 4.2 {x10E3/uL} (Normal) Range: 4.0-10.5 83-Hnn-92785:30 METABOLIC PANEL, COMPREHENSIVE Comments: PATIENT WAS FASTINGPERFORMED BY: [facility] Vspvxp5667 [facility] [id number] (30641) ALT (SGPT) 19 [iU]/L (Normal) Range: 0-40 [...] mg/dL (Abnormal) Range: 65-99 :30 LIPID PANEL (26309) Comments: PATIENT WAS FASTINGPERFORMED BY: LabCoR[facility] Behavioral HealthCareDxgtxq1011 [facility] [id number] LDL/HDL Ratio 0.9 {ratio_units} (Normal) Range: 0.0-3.2 [...] note reference interval change :48 Rapid Flu (87418 x 2) Influenza A Ag negative (Normal) [...] redmond M.D.November 05, 2011 at 3:25:08 PM [id number] Signed GP/GP If you are the referring physician and would like to consult with theradiologist who provided this interpretation, please contact Yasmany Pond at [phone]. If this radiologist is unavailable, youwill be directed to another radiologist to assist. If you are a patient with a question regarding this report, ple asecontactyour referring physician directly. Professional Interpretation Provided By: [employer], Phone , These documents contain legally [...] redmond M.D.November 05, 2011 at 3:25:08 PM [id number] Signed GP/GP If you are the referring physician and would like to consult with theradiologist who provided this interpretation, please contact Yasmany Pond at [phone]. If this radiologist is unavailable, youwill be directed to another radiologist to assist. If you are a patient with a question regarding this report, ple asecontactyour referring physician directly. Professional Interpretation Provided By: [employer], Phone , These documents contain legally [...] 11/05/11 155 Sign by: Misael Hebert MD 46-Mwz-260970:20 METABOLIC PANEL, Comments: PATIENT WAS FASTINGPERFORMED BY: [facility]6370 [facility] [id number] Information: [id number],2ND ORDER NO DRAW F [facility] (49765) ALT (SGPT) 31 [iU]/L (Normal) Range: 0-40 [...] Glucose, Serum 155 mg/dL (Abnormal) Range: 65-99 21-Twc-00110:49 Creatinine Clearance Comments: PATIENT WAS FASTINGPERFORMED BY: EVE LabCoR[facility] Behavioral HealthCareNucrcn7272 [facility] [id number] Information: 10/30@6AM 10/31@730AM Creatinine Clearance 58 mL/min [...] Qn, 24-Hr Comments: PATIENT WAS FASTINGPERFORMED BY: LabCoR[facility] Behavior[facility] HealthCareFeocih2067 [facility] [id number] Urine Prot,24hr calculated 1023.8 {mg/24_hr} (Abnormal) Range: 30.0-150.0 Protein,Total,Urine 52.5 mg/dL (Abnormal) Range: 0.0-15.0 :04 HgA1C , Office (92649) HgA1C , Office 6.1 % (Normal) Range: [...] regarding this repor t, please call our 22P2ireqxvy line @ Dictated on 07/27/11 1040 by GAYE PEREZ MD RTranscribed on 07/28/11 1225 by ITS IMPORTSign by GAYE PEREZ MD on 07/28/11 1225 Sign by: GAYE PEREZ MD 28-Lim-90916:54 Vitamin D Hydroxy (05085) Comments: PATIENT WAS FASTINGPERFORMED BY: LabCoR[facility] Behavioral HealthCareJrelja7360 [facility] [id number] Vitamin D, 25-Hydroxy 48.8 ng/mL (Normal) Range: 30.0-100.0 Comments: Vitamin D deficiency has been defined by the [place] ofMedicine and an Endocrine Society practice guideline as alevel of serum 25-OH vitamin D less than 20 ng/mL (1,2).The Endocrine Society went on to further define vitamin Dinsufficiency as a level between 21 and 29 ng/mL (2).1. IOM ([place] of Medicine). 2010. Dietary reference intakes for calcium and D. [place]: The National Academies Press.2. Mira MF, [place]ette [place], Tommy SWAIN, et al. Evaluation, treatment, and prevention of vitamin D deficiency: an Endocrine Society clinical practice guideline. JCEM. 2010; 96(7):1911-30. :54 LIPID PANEL (16173) Comments: PATIENT WAS FASTINGPERFORMED BY: [employer]70 [facility] [id number] LDL/HDL Ratio 1.0 {ratio_units} (Normal) Range: 0.0-3.2 [...] MANUAL DIFF Comments: PATIENT WAS FASTINGPERFORMED BY: [employer] LabCoRedeemrYainav2848 [facility] [id number] Information: ADD [id number] AND DRAW FEE 99 1362 (80431) Immature Grans (Abs) 0.0 {x10E3/uL} (Normal) Range: [...] 3.77-5.28 WBC 4.3 {x10E3/uL} (Normal) Range: 4.0-10.5 67-Pcz-73321:54 METABOLIC PANEL, COMPREHENSIVE Comments: PATIENT WAS FASTINGPERFORMED BY: LabCoR[facility] Behavioral HealthCareWjblyy0160 [facility] [id number] (72463) ALT (SGPT) 48 [iU]/L (Abnormal) Range: 0-40 [...] (Abnormal) Range: 65-99 :18 HgA1C , Office (66286) HgA1C , Office 6.1 % (Normal) Range: 4.6 - 7.1 :18 Blood Glucose , Office (51082) Blood Glucose , Office 103 (Normal) 27-Gna-41105:00 ABDOMEN WITH AND W/O CONTRAST Radiology Report [...] radiologist regarding this report, please call our 27D3auyknmd line @ Dictated on 03/18/11 1715 by Keaton MANN,NadieTranscribed on 03/22/11 1401 by ITS IMPORTSign by Jeanette Hill MD on 03/22/11 140 Sign by: Jeanette Pugh MD 14-Oeu-519937:29 SERUM CRE & GFR CREAT,SERUM 1.1 mg/dL (Abnormal) Range: 0.6-1.0 27-Agy-66920:00 BRAIN W/WO CONTRAST Radiology Report See Note [...] seen in the right frontal white matter specification consultant ior to themasswithout interval change. The cortical [...] 03/02/11 173 Sign by: Donna Martin MD 46-Nja-39524:00 UPPER EXT. JOINT ONLY(ROUTINE) Radiology Report See [...] on 01/29/111715 Sign by: Aakash Barbosa MD 30-Jmy-14133:44 ABDOMEN/PELVIS WITH CONTRAST Radiology Report See Note [...] 02/01/11 1021 Sign by: ALEJANDRO DRUMMOND DO 73-Uah-531681:57 SINUS/FACIAL BONE Radiology Report See Note (Normal) [...] 01/19/11 1448 Sign by: Misael Hebert MD 73-Heb-93236:00 BRAIN W/WO CONTRAST Radiology Report See Note [...] addition, there is a small region of idazsdvczY4pptelzphxb along the anterior margin of the mass, [...] on 01/19/2011 16:48:58 (ET). Dictated on 01/19/11 4753 by GAYE PLUMMER MD RTranscribed on 01/19/111649 by ITS IMPORTSign by GAYE PEREZ MD on 01/19/111650 Sign by: CHRIS MANNGAYE Alen 26-Jmd-90433:00 BRAIN/HEAD W/WO CONTRAST Radiology Report See Note [...] 01/19/11 1447 Sign by: Misael Hebert MD 28-Juj-285782:08 BILAT SCRN DIGITAL & CAD Radiology Report [...] CREATININE RATIO Comments: PATIENT NOT FASTINGPERFORMED BY: Aug[employer]70 [facility] [id number] (47535) AND (61445) Microalb/Creat Ratio 1028.4 {mg/g_creat} (Abnormal) Range: 0.0-30.0 Microalbumin, Urine 1341.0 ug/mL (Abnormal) Range: 0.0-17.0 Creatinine, Urine 130.4 mg/dL (Normal) Range: 15.0-278.0 :20 CBC WITH MANUAL DIFF (77804) Comments: PATIENT NOT FASTINGPERFORMED BY: [employer]6370 [facility] [id number] Immature Grans (Abs) 0.0 {x10E3/uL} (Normal) Range: [...] {x10E3/uL} (Normal) Range: 4.0-10.5 09-Jun-20119:20 LIPID PANEL (06034) Comments: PATIENT NOT FASTINGPERFORMED BY: LabCoR[facility] - [facility] Behavioral HealthCareBeqslk9228 [facility] [id number] LDL/HDL Ratio 0.9 {ratio_units} (Normal) Range: 0.0-3.2 [...] PANEL, COMPREHENSIVE Comments: PATIENT NOT FASTINGPERFORMED BY: LabCoR[facility] - [facility] Behavioral HealthCareIxwigh8317 [facility] [id number] (15762) ALT (SGPT) 28 [iU]/L (Normal) Range: 0-40 [...] (Abnormal) Range: 65-99 :39 HgA1C , Office (13246) HgA1C , Office 6.5 % (Normal) Range: 4.6 - 7.1 :39 Blood Glucose , Office (69247) Blood Glucose , Office 128 (Normal) :19 CBC With Differential/Platelet Comments: PATIENT WAS FASTINGPERFORMED BY: EVE Commex TechnologiesRutgers - University Behavioral HealthCareNgcrlh3984 [facility] [id number] Immature Grans (Abs) 0.0 {x10E3/uL} (Normal) Range: [...] Panel (14) Comments: PATIENT WAS FASTINGPERFORMED BY: Commex TechnologiesRutgers - University Behavioral HealthCareNxjczd4034 [facility] [id number]; appt 01/11/11 ALT (SGPT) 18 [iU]/L (Normal) [...] Glucose, Serum 113 mg/dL (Abnormal) Range: 65-99 9-Smj-987605:19 Lipid Panel With LDL/HDL Comments: PATIENT WAS FASTINGPERFORMED BY: LabCoR[facility] - [facility] Behavioral HealthCareLrwmaa9393 [facility] [id number] Ratio LDL/HDL Ratio 1.0 {ratio_units} Range: 0.0-3.2 [...] 0.800 {uIU/mL} Comments: PATIENT WAS FASTINGPERFORMED BY: [employer]70 [facility] [id number] 2:19 (Normal) Range: 0.450-4.500 Vitamin D, 25-Hydroxy 44.0 ng/mL (Normal) Comments: PATIENT WAS FASTINGPERFORMED BY: [employer] [facility] [id number] 2:19 Range: 32.0-100.0 Comments: Effective February 22, 2011 Vitamin D, 25-Hydroxy reference intervals will be changing to 30-100. .Recent studies consider the lower li sandra of 32.0 ng/mL to be athreshold for optimal health.Otf HAYES. J Nutr. 2004;135(2):317-22. :54 HgA1C , Office (30457) HgA1C , Office 6.6 % (Normal) Range: 4.6 - 7.1 :54 Blood Glucose , Office (83439) Blood Glucose , Office 134 (Normal) :40 Creatinine Clearance Comments: PERFORMED BY: [employer] Wlwhxn8377 [facility] [id number] Information: 10/07@7AM 10/08@3AM Creatinine Clearance 56 mL/min [...] Protein Total, Qn, 24-Hr Comments: PERFORMED BY: [facility] [place] [id number] Urine Prot,24hr calculated 610.5 {mg/24_hr} (Abnormal) Range: 30.0-150.0 Protein,Total,Urine 40.7 mg/dL (Abnormal) Range: 0.0-15.0 :46 Vitamin D Hydroxy (74703) Comments: PATIENT WAS FASTINGPERFORMED BY: [employer]6370 [facility] [id number] Vitamin D, 25-Hydroxy 36.5 ng/mL (Normal) Range: 32.0-100.0 Comments: Recent studies consider the lower limit of 32.0 ng/mL to be athreshold for optimal health.Otf HAYES. J Nutr. 2004;135(2):317-22. :46 METABOLIC PANEL, COMPREHENSIVE Comments: PATIENT WAS FASTINGPERFORMED BY: [employer]6370 [facility] [id number] (89391) ALT (SGPT) 34 [iU]/L (Normal) Range: 0-40 [...] mg/dL (Abnormal) Range: 65-99 :46 LIPID PANEL (40100) Comments: PATIENT WAS FASTINGPERFORMED BY: [facility]PingC[facility] Health [id number] LDL Cholesterol Calc 85 mg/dL (Normal) Range: [...] MANUAL DIFF Comments: PATIENT WAS FASTINGPERFORMED BY: [employer]com6370 [facility] [id number] Information: [id number]; appt 10/12/10 (55677) Immature Grans (Abs) 0.0 {x10E3/uL} (Normal) Range: [...] 3.80-5.10 WBC 5.5 {x10E3/uL} (Normal) Range: 4.0-10.5 8-Kkx-983216:07 HgA1C , Office (37840) HgA1C , Office 6.6 % (Normal) Range: 4.6 - 7.1 :07 Blood Glucose , Office (00876) Blood Glucose , Office 114 (Normal) 78-Pxg-753489:00 Creatinine Clearance Comments: PERFORMED BY: [facility]6370 [facility] [id number] Information: 12/31@8AM 01/01@4AM Creatinine Clearance 48 mL/min [...] Creatinine, Serum 1.20 mg/dL (Abnormal) Range: 0.57-1.00 39-Rtm-181880:00 Protein Total, Qn, 24-Hr Comments: PERFORMED BY: LabCoRutgers - University Behavioral HealthCareArginh6151 [facility] [id number] Urine Prot,24hr calculated 1070.6 {mg/24_hr} (Abnormal) Range: 30.0-150.0 Protein,Total,Urine 79.3 mg/dL (Abnormal) Range: 0.0-15.0 09-Zdk-829243:48 BILAT SCRN DIGITAL & CAD Radiology Report See Note (Normal) Comments: Exam Number: [id number] MAMMOGRAPHY - BILATERAL SCREENING INDICATION:Routine annual screening [...] of attaching a ResultCode to this exam.ADDENDUM: [id number] HPBI/MDS Reported By: ANUPMISAEL 50-Bel-667758:48 DEXA BONE DENSITY STUDY (HP) Radiology Report See Note (Normal) Comments: Exam Number: [id number] CLINICAL:This is a 69-year-old female patient with postmenopausal screening. EXAMINATION:DUAL ENERGY X-RAY ABSORPTIOMETRY / DEXA. TECHNIQUE:Bone Density Measurements (BMD) of lumb ar spine and bilateral hipswere obtained using a [employer] scanner.. COMPARISON:None. FINDINGS: Lumbar Spine (L1-L4): g/cm2 [...] Osteoporosis Foundation http://www.nof.org Reported By: MISAEL HEBERT 78-Yyz-607452:29 HgA1C , Office (40209) HgA1C , Office 6.5 % (Normal) Range: 4.6 - 7.1 85-Qqc-088907:29 Blood Glucose , Office (74455) Blood Glucose , Office 109 (Normal) :05 CBC With Differential/Platelet Comments: PATIENT WAS FASTINGPERFORMED BY: LabCoR[facility] - [facility] Behavioral HealthCareMjwlzj5531 [facility] [id number] Immature Grans (Abs) 0.0 {x10E3/uL} (Normal) Range: [...] (14) Comments: PATIENT WAS FASTINGPERFORMED BY: [facility] Ilkkgl9143 [facility] [id number] ALT (SGPT) 20 [iU]/L (Normal) Range: 0-40 [...] With LDL/HDL Comments: PATIENT WAS FASTINGPERFORMED BY: [employer] Phngrh8115 [facility] [id number] Ratio HDL Cholesterol 54 mg/dL (Normal) Comments: [...] ng/mL (Normal) Comments: PATIENT WAS FASTINGPERFORMED BY: [employer]6370 [facility] [id number] :05 Range: 32.0-100.0 Comments: Recent studies consider the lower limit of 32.0 ng/mL to be athreshold for optimal health.Otf HAYES. J Nutr. 2004;135(2):317-22. 09-Ygq-09455:41 SPLEEN (HP) Radiology Report See Note (Normal) Comments: Exam Number: [id number] ULTRASOUND OF THE SPLEEN A goal directed [...] Protein, 0.5 mg/L (Normal) Comments: PERFORMED BY: [employer] Gyjust6958 [facility] [id number] 10:54 Quant Range: 0.0-4.9 17-Jun-2009 Hemoglobin A1c 6.3 % (Abnormal) Comments: PERFORMED BY: [employer]6370 [facility] [id number] 10:54 Range: 4.8-5.6 Comments: Increased risk for diabetes: 5.7 - 6.4Diabetes: >6.4Glycemic control for adults with diabetes: <7.0.Please note reference interval change 17-Jun-2009 Sedimentation 4 mm/h (Normal) Comments: PERFORMED BY: [employer]6370 [facility]in [place] [id number] 10:54 Rate-Westergren Range: 0-30 17-Jun-2009 Vitamin B12 1372 pg/mL Comments: PERFORMED BY: [employer]70 [place] [facility] [id number] 10:54 (Abnormal) Range: 211-911 Comments: Effective July 14, 2009, Vitamin B12 will bechanging to the [place] ECLIA methodology. Thereference interval will be changing to:211 - 946 pg/mL 17-Jun-2009 Vitamin D, 25-Hydroxy 37.7 ng/mL Comments: PERFORMED BY: [employer]70 [facility] [id number] 10:54 (Normal) Range: 32.0-100.0 Comments: Recent studies consider the lower limit of 32.0 ng/mL to be athreshold for optimal health.Otf HAYES. J Nutr. 2004;135(2):317-22. 28-Dgo-974960:34 Vitamin D Hydroxy Comments: PATIENT NOT FASTINGPERFORMED BY: [employer]6370 [facility] [id number] Information: D77603,2ND ORDER NO DRAW F EE (79346) Vitamin D, 25-Hydroxy 48.5 ng/mL (Normal) Range: 30.0-100.0 Comments: Vitamin D deficiency has been defined by the [place] ofMedicine and an Endocrine Society practice guideline as alevel of serum 25-OH vitamin D less than 20 ng/mL (1,2).The Endocrine Society went on to further define vitamin Dinsufficiency as a level between 21 and 29 ng/mL (2).1. IOM ([place] of Medicine). 2010. Dietary reference intakes for calcium and D. [place]: The National Academies Press.2. Mira MF, Rosette LOPEZ, Tommy SWAIN, et al. Evaluation, treatment, and prevention of vitamin D deficiency: an Endocrine Society clinical practice guideline. JCEM. 2010; 96(7):1911-30. :50 HgA1C , Office (63023) HgA1C , Office 6.7 % (Normal) Range: 4.6 - 7.1 :50 Blood Glucose , Office (71009) Blood Glucose , Office 117 (Normal) :12 CBC With Differential/Platelet Comments: PERFORMED BY: [facility]6370 [facility] [id number] Information: 06/10@6AM3/10@330 Hematology Comments: Note: (Normal) Comments: [...] 3.80-5.10 WBC 3.6 {x10E3/uL} (Abnormal) Range: 4.0-10.5 24-Omj-167918:12 Comp. Metabolic Panel (14) Comments: PERFORMED BY: [facility] Rlrxre9832 [facility] [id number] Alkaline Phosphatase, S 68 [iU]/L (Normal) Range: [...] Glucose, Serum 124 mg/dL (Abnormal) Range: 65-99 81-Tem-000002:12 Creatinine Clearance Comments: PERFORMED BY: [employer] Tpvtmi0019 [facility] [id number] Creatinine Clearance 49 mL/min (Abnormal) Range: 88-128 Comments: The above range is based on 1.73 square meter average body surfacearea. Creatinine, Ur 24hr 800.0 {mg/24_hr} (Normal) Range: 800.0-1800.0 Creatinine, Urine 40.0 mg/dL (Normal) Range: 15.0-278.0 81-Udy-971761:12 Lipid Panel With LDL/HDL Comments: PERFORMED BY: [employer] Lanzaloya.com [facility] [id number] Ratio HDL Cholesterol 61 mg/dL (Normal) Comments: According to ATP-III Guidelines, HDL-C >59 mg/dL is considered anegative risk factor for CHD. LDL Cholesterol Calc 74 mg/dL (Normal) Range: 0-99 LDL/HDL Ratio 1.2 {ratio_units} (Normal) Range: 0.0-3.2 VLDL Cholesterol Cesar 17 mg/dL (Normal) Range: 5-40 Cholesterol, Total 152 mg/dL (Normal) Range: 100-199 Triglycerides 87 mg/dL (Normal) Range: 0-149 18-Udl-178017:12 Protein Total, Qn, 24-Hr Comments: PERFORMED BY: [employer]6370 [facility] [id number] Urine Prot,24hr calculated 1172.0 {mg/24_hr} Range: 30.0-150.0 (Abnormal) Protein,Total,Urine 58.6 mg/dL (Abnormal) Range: 0.0-15.0 TSH 1.280 {uIU/mL} Comments: PERFORMED BY: Commex TechnologiesRutgers - University Behavioral HealthCareYwbexj2139 [facility] [id number] 1:12 (Normal) Range: 0.450-4.500 5-Urv-078045:58 HgA1C , Office (65836) HgA1C , Office 6.0 % (Normal) Range: 4.6 - 7.1 3-Kec-440558:58 Blood Glucose , Office (92116) Blood Glucose , Office 113 (Normal) :03 CBC With Differential/Platelet Comments: PATIENT WAS FASTINGPERFORMED BY: Commex TechnologiesRutgers - University Behavioral HealthCareUnkkwv5745 [facility] [id number] Baso (Absolute) 0.0 {x10E3/uL} (Normal) Range: 0.0-0.2 [...] Panel (14) Comments: PATIENT WAS FASTINGPERFORMED BY: Commex TechnologiesRutgers - University Behavioral HealthCareHlgpjc7384 [facility] [id number] A/G Ratio 2.0 (Normal) Range: 1.1-2.5 Albumin, [...] Glucose, Serum 116 mg/dL (Abnormal) Range: 65-99 4-Xlm-285746:03 Lipid Panel With LDL/HDL Comments: PATIENT WAS FASTINGPERFORMED BY: LabCoRutgers - University Behavioral HealthCareTqcvnh6513 [facility] [id number] Ratio Cholesterol, Total 167 mg/dL (Normal) Range: [...] ng/mL (Normal) Comments: PATIENT WAS FASTINGPERFORMED BY: LabCoRutgers - University Behavioral HealthCarePhdghc7903 [facility] [id number] :03 Range: 32.0-100.0 Comments: Recent studies consider the lower limit of 32.0 ng/mL to be athreshold for optimal health.Otf HAYES. J Nutr. 2004;135(2):317-22. 10-Wpd-912142:32 Urinalysis, Office (95229) UA - BILIRUBIN Negative (Normal) UA - BLOOD Hemolyzed Trace (Normal) UA - GLUCOSE Negative (Normal) UA - KETONES Negative mg/dL (Normal) UA - LEUKOCYTE ESTERASE Negative (Normal) UA - NITRITE Negative (Normal) UA - PH 6.5 (Normal) UA - PROTEIN 300 mg/dL (Normal) UA - SPECIFIC GRAVITY 1.020 (Normal) URINE UROBILINGN JATINDER TIMED 2 mg/dL (Normal) 9-Jmx-808967:19 URINE SETH CULTURE-JATINDER COL Comments: PATIENT NOT FASTINGClinical Information: SRC:UR ADD [id number] PERFORMED BY: [facility] Vevcxz5006 [facility] [id number] COUNT (37546) Result 1 ECV (Normal) Comments: Escherichia coli, [...] report (Normal) Culture,Comprehensiv e 09-Jan-20098:17 Urinalysis, Office (36774) UA - BILIRUBIN Negative (Normal) UA - BLOOD Hemolyzed Large (Normal) UA - GLUCOSE Negative (Normal) UA - KETONES Negative mg/dL (Normal) UA - LEUKOCYTE ESTERASE Moderate (Normal) UA - NITRITE Negative (Normal) UA - PH 7.0 (Normal) UA - PROTEIN 300 mg/dL (Normal) UA - SPECIFIC GRAVITY 1.020 (Normal) URINE UROBILINGN JATINDER TIMED 2 mg/dL (Normal) 8-Yqp-668530:05 Comp. Metabolic Panel (14) Comments: PATIENT WAS FASTINGPERFORMED BY: [facility]6370 [facility] [id number] A/G Ratio 1.7 (Normal) Range: 1.1-2.5 Albumin, [...] Panel (7) Comments: PATIENT WAS FASTINGPERFORMED BY: [facility]6370 [facility] [id number] Bilirubin, Direct 0.12 mg/dL (Normal) Range: 0.00-0.40 :05 Lipid Panel With LDL/HDL Comments: PATIENT WAS FASTINGPERFORMED BY: [place] 3536270 [facility] [id number] Ratio Cholesterol, Total 170 mg/dL (Normal) Range: [...] mg/dL (Normal) Comments: PATIENT WAS FASTINGPERFORMED BY: [facility]6370 [facility] [id number] :05 Range: 2.5-4.5 PTH, Intact 19 pg/mL (Normal) Comments: PATIENT WAS FASTINGPERFORMED BY: [facility]6370 [facility] [id number] :05 Range: 15-65 Vitamin D, 25-Hydroxy 38.9 ng/mL (Normal) Comments: PATIENT WAS FASTINGPERFORMED BY: [facility]6370 [facility] [id number] :05 Range: 32.0-100.0 Comments: Recent studies consider the lower limit of 32.0 ng/mL to be athreshold for optimal health.Otf HAYES. J Nutr. 2004;135(2):317-22. 6-Mdh-654920:40 HgA1C , Office (10760) HgA1C , Office 6.0 % (Normal) Range: 4.6 - 7.1 :40 Blood Glucose , Office (93061) Blood Glucose , Office 109 (Normal) :42 CBC With Differential/Platelet Comments: PATIENT WAS FASTINGPERFORMED BY: LabCoRutgers - University Behavioral HealthCareVkjbvw8258 [facility] [id number] Baso (Absolute) 0.0 {x10E3/uL} (Normal) Range: 0.0-0.2 [...] WAS FASTINGPERFORMED BY: LabCoRutgers - University Behavioral HealthCareWmtxmo3182 [facility] [id number] A/G Ratio 1.6 (Normal) Range: 1.1-2.5 Albumin, [...] Sodium, Serum 140 mmol/L (Normal) Range: 135-145 2-Wys-115934:09 FECAL OCCULT HGB ASSAY, QUAL, 1-3 SIMULTANEOUS DETERMINATIONS (65343) FECAL OCCULT HGB ASSAY, QUAL, 1-3 SIMULTANEOU neg (Normal) :42 Microscopic Examination Comments: PATIENT WAS FASTINGPERFORMED BY: LabCoR[facility] - [facility] Behavioral HealthCareTwlhym0136 [facility] [id number] Bacteria None seen (Normal) Cast Type Hyaline casts (Normal) Casts Present {/lpf} (Abnormal) Epithelial Cells (non renal) 0-10 {/hpf} (Normal) Range: 0 - 10 Mucus Threads Present (Normal) RBC 0-3 {/hpf} (Normal) Range: 0 - 3 WBC 0-5 {/hpf} (Normal) Range: 0 - 5 :42 URINALYSIS W/O MICRO (02679) Comments: PATIENT WAS FASTINGPERFORMED BY: [facility]PingC[facility] Health [id number] Appearance Clear (Normal) Bilirubin Negative (Normal) Glucose Negative (Normal) Ketones Negative (Normal) Microscopic Examination See below: (Normal) Nitrite, Urine Negative (Normal) Occult Blood Negative (Normal) pH 5.0 (Normal) Range: 5.0-7.5 Protein 1+ (Abnormal) Specific [place] 1.013 (Normal) Range: 1.005-1.030 Urine-Color Yellow (Normal) Urobilinogen,Semi-Qn 0.2 mg/dL (Normal) Range: 0.0-1.9 WBC Esterase 1+ (Abnormal) :42 MICROALBUMIN: CREATININE RATIO Comments: PATIENT WAS FASTINGPERFORMED BY: NodePingCone Health [id number] (26577) AND (18090) Creatinine, Urine 76.1 mg/dL (Normal) Range: 15.0-278.0 Microalb/Creat Ratio 292.1 {ug/mg_creat} (Abnormal) Range: 0.0-30.0 Microalbumin, Urine 222.3 ug/mL (Abnormal) Range: 0.0-17.0 :42 CBC WITH MANUAL DIFF (78322) Comments: PATIENT WAS FASTINGClinical Information: ADD DRAW FEE [id number] ADD J 44888 PERFORMED BY: [employer] [place] [facility] [id number] Baso (Absolute) 0.0 {x10E3/uL} (Normal) Range: 0.0-0.2 [...] PATIENT WAS FASTINGPERFORMED BY: [facility] [id number] (25631) A/G Ratio 1.8 (Normal) Range: 1.1-2.5 Albumin, [...] Sodium, Serum 141 mmol/L (Normal) Range: 135-145 2-Tya-359914:23 HgA1C , Office (51899) HgA1C , Office 6.0 % (Normal) Range: 4.6 - 7.1 6-Cxh-305091:23 Blood Glucose , Office (42405) Blood Glucose , Office 103 (Normal) 88-Kxs-529342:38 CBC WITH MANUAL DIFF (52216) Comments: PATIENT WAS FASTINGClinical Information: ADD DRAW FEE [id number] ADD J 19521 PERFORMED BY: [facility]CoR[facility] HealthCarePkeyzn6460 [facility] [id number] Baso (Absolute) 0.0 {x10E3/uL} (Normal) Range: 0.0-0.2 [...] 11.7-15.0 WBC 4.0 {x10E3/uL} (Normal) Range: 4.0-10.5 23-Lnc-437973:38 METABOLIC PANEL, COMPREHENSIVE Comments: PATIENT WAS FASTINGPERFORMED BY: [facility]CoR[facility] HealthCareLoxrbj3698 [facility] [id number] (50024) A/G Ratio 1.8 (Normal) Range: 1.1-2.5 Albumin, [...] Sodium, Serum 142 mmol/L (Normal) Range: 135-145 17-Ndi-141225:38 HEPATIC FUNCTION PANEL Comments: PATIENT WAS FASTINGPERFORMED BY: [facility]Co[facility] HealthCareDsoxed6837 [facility] [id number] (37868) Bilirubin, Direct 0.08 mg/dL (Normal) Range: 0.00-0.40 17-Erg-191796:38 LIPID PANEL (50130) Comments: PATIENT WAS FASTINGPERFORMED BY: [employer] LabCoR[facility] Behavioral HealthCareLdshzc5416 [facility] [id number] Cholesterol, Total 200 mg/dL (Abnormal) Range: 100-199 [...] Cholesterol Cesar 18 mg/dL (Normal) Range: 5-40 2-Cls-789899:36 HgA1C , Office (88082) HgA1C , Office 6.1 % (Normal) Range: 4.6 - 7.1 2-Bqn-558798:36 Blood Glucose , Office (80940) Blood Glucose , Office 98 (Normal) 97-Cpa-061247:33 CBC With Differential/Platelet Comments: PATIENT WAS FASTINGClinical Information: SRC:UR PERFORMED BY: EVE LabCoR[facility] Behavioral HealthCareIfpjup6414 [facility] [id number] Baso (Absolute) 0.0 {x10E3/uL} (Normal) Range: 0.0-0.2 [...] 11.7-15.0 WBC 4.8 {x10E3/uL} (Normal) Range: 4.0-10.5 83-Lfv-211022:33 Comp. Metabolic Panel (14) Comments: PATIENT WAS FASTINGPERFORMED BY: [facility]Co[facility]al HealthCareTazbkq6153 [facility] [id number] A/G Ratio 1.6 (Normal) Range: 1.1-2.5 Albumin, [...] Serum 92 mg/dL (Normal) Range: 65-99 If -Ghanaian 57 mL/min/1.73 Comments: Note: Persistent reduction for [...] Sodium, Serum 142 mmol/L (Normal) Range: 135-145 58-Svy-485122:33 Lipid Panel With LDL/HDL Comments: PATIENT WAS FASTINGPERFORMED BY: LabCo Kirxbr3670 [facility] [id number] Ratio Cholesterol, Total 174 mg/dL (Normal) Range: 100-199 HDL Cholesterol 67 mg/dL (Normal) Comments: According to ATP-III Guidelines, HDL-C >59 mg/dL is considered anegative risk factor for CHD. LDL Cholesterol Calc 85 mg/dL (Normal) Range: 0-99 LDL/HDL Ratio 1.3 {ratio_units} (Normal) Range: 0.0-3.2 Triglycerides 110 mg/dL (Normal) Range: 0-149 VLDL Cholesterol Cesar 22 mg/dL (Normal) Range: 5-40 20-Adt-392941:33 Urine Culture,Comprehensive Comments: PATIENT WAS FASTINGPERFORMED BY: [facility]6370 [facility] [id number] Antimicrobial MIHEAD (Normal) Comments: S = Susceptible; [...] Enterococcus. (Normal) Urine Final report (Normal) Culture,Comprehensive 6-Lsx-819371:10 HgA1C , Office (41150) HgA1C , Office 5.9 % (Normal) Range: [...] mL (Normal) URINE CREAT 43.0 mg/dL (Normal) 39-Qqm-48487:03 PROU 24HR 24hr UR PROTEIN 430.0 {mg/day} (Abnormal) UR COLLECT TIME 24.0 {HOURS} (Normal) UR TOTAL VOLUME 2150 mL (Normal) URINE PROTEIN 20.0 mg/dL (Abnormal) 74-Eum-725204:17 Urine Culture,Comprehensive Comments: Clinical Information: SRC:UR PERFORMED BY: [employer] [facility] Crow[facility] WorksCone Health [id number] Result 1 CNSNSS (Normal) Comments: Coagulase negative Staphylococcus species, not Staphylococcussaprophyticus.600 Colonies/mLSusceptibility or resistance of staphylococci to oxacillin predictssusceptibility or resistance to (a) other be rg-arzyoucvw-dqlahfjwscsiujemb such as cloxacillin and dicloxacillin, (b) combinationsof a penicillin and a beta-lactamase inhibitor, and(c) anti- staphylococcal cephalosporins. Routine testing of otherp enicillins, beta-lactam/beta-lactamase inhibitor combinations,cephems, and carbapenems is not advised by the CLSI Standards(H813-W81, 2005). S = Susceptible; I = Intermediate; R = Resistant * P = Positive; N = Negative MICS are expressed in micrograms per mL Antibiotic RSLT#1 RSLT#2 RSLT#3 RSLT#4Ciprofloxacin RGentami kristian SLevofloxacin RNitrofurantoin SOxacillin SPenicillin RRifampin STrimethoprim/Sulfa SVancomycin S Urine Final report Culture,Comprehensi (Normal) ve 0-Zrz-632609:53 Metabolic Panel, Basic (71665) Comments: PATIENT NOT FASTINGClinical Information: ADD DRAW FEE [id number] ADD J 24802 PERFORMED BY: [employer] Vujilf3449 [facility] [id number] BUN 39 mg/dL (Abnormal) Range: 5-26 BUN/Creatinine Ratio 33 (Abnormal) Range: 8-27 Calcium, Serum 9.8 mg/dL (Normal) Range: 8.5-10.6 Carbon Dioxide, Total 22 mmol/L (Normal) Range: 20-32 Chloride, Serum 103 mmol/L (Normal) Range: 97-108 Creatinine, Serum 1.20 mg/dL (Abnormal) Range: 0.57-1.00 Glom Filt Rate, Est 45 mL/min/1.73 Range: 60-128 (Abnormal) Glucose, Serum 101 mg/dL (Abnormal) Range: 65-99 If -Ghanaian 55 mL/min/1.73 Range: 60-128 (Abnormal) Comments: Note: Persistent reduction for 3 months or more in an eGFR<60 mL/min/1.73 m2 defines CKD. Patients with eGFR values>/=60 mL/min/1.73 m2 may also have CKD if evidence of persistentproteinuria is present. Additional information may be found atwww.kdoqi.org. Potassium, Serum 5.1 mmol/L (Normal) Range: 3.5-5.2 Sodium, Serum 139 mmol/L (Normal) Range: 135-145 :09 HgA1C , Office (33795) HgA1C , Office 6.1 % (Normal) Range: 4.6 - 7.1 :09 Blood Glucose , Office (42485) Blood Glucose , Office 163 (Normal) 82-Xpr-46715:37 SPINE,LUMBAR (ROUTINE) Radiology Report See Note (Normal) Comments: Exam Number: [id number] MRI LUMBAR SPINE CLINICAL STATEMENTLow back pain [...] onboth sides. Reported By: MODESTA COPE M.D. 19-Tbu-105377:00 [facility] Report See Note (Normal) Comments: Exam Number: [id number] MAMMOGRAM, BILATERAL SCREENING DIGITAL AND CAD HISTORYRoutine screening. Full field digital images were obtained in mediolateral oblique andcraniocaudal projections. CAD images w ere reviewed. The current study is [facility] to [facility]. A small metal marker is placed on [...] mammograms werealso examined with computer-aided detection software ([employer], [employer], [employer].). Reported By: DONNA OJEDA M.D. 29-Ofs-345338:59 DEXA BONE DENSITY STUDY (HP) Radiology Report See Note (Normal) Comments: Exam Number: [id number] BONE DENSITOMETRY HISTORYPost menopausal. TECHNIQUE Bone densitometry [...] Report See Note (Normal) Comments: Exam Number: [id number] FIVE VIEW LUMBAR SPINE AP, lateral, both [...] Randm Ur Comments: PATIENT NOT FASTINGPERFORMED BY: NodePingCone Health [id number] Creatinine, Urine 46.8 mg/dL (Normal) Microalb/Creat Ratio 712.8 {ug/mg_creat} (Abnormal) Range: 0.0-30.0 Microalbum.,U,Random 333.6 ug/mL (Abnormal) Range: 0.0-17.0 :13 Creatinine Clearance Comments: PATIENT NOT FASTINGClinical Information: HT-5'4'' WT-184 PERFORMED BY: [facility]rapeuticsSpring [facility] [id number] Creatinine Clearance 40 mL/min (Abnormal) Range: 88-128 Comments: The above range is based on 1.73 square meter average body surfacearea. Creatinine, Serum 1.30 mg/dL (Normal) Range: 0.50-1.50 Creatinine, Ur 24hr 754.8 {mg/24_hr} Range: 800.0-1800.0 (Abnormal) Creatinine, Urine 44.4 mg/dL (Normal) Glom Filt Rate, Est 41 mL/min (Abnormal) Range: 60-128 If -Ghanaian 50 mL/min (Abnormal) Range: 60-128 Comments: Note: Persistent reduction for 3 months or more in an eGFR<60 mL/min/1.73 m2 defines CKD. Patients with eGFR values>/=60 mL/min/1.73 m2 may also have CKD if evidence of persistentproteinuria is present. .Additional information may be found at www.kdoqi.org. 05-Sep-20079:13 Protein Total, Qn, 24-Hr Comments: PATIENT NOT FASTINGPERFORMED BY: LabCoR[facility]al HealthCareLeoqdo6890 [facility] [id number] Urine Protein,Total,Urine 49.0 mg/dL (Abnormal) Range: 0.0-15.0 Prt, 24hr calculated 833.0 {mg/24_hr} (Abnormal) Range: 30.0-150.0 00-Jyv-201059:00 CBCD,SMEAR DIFF CELLS COUNTED 100 (Normal) EOS [...] 47-70 WBC 4.3 K/mm3 (Abnormal) Range: 4.4-11.0 45-Sgq-701689:00 COMP METABOLIC A/G 1.4 {RATIO} (Normal) Range: [...] T PROT 6.6 g/dL (Normal) Range: 6.4-8.2 57-Crg-070064:00 D BILI 0.06 mg/dL (Normal) Range: 0.00-0.30 73-Mlb-342324:00 LIPID CHOL 175 mg/dL (Normal) Comments: <200 [...] mg/dL VLDL 12 mg/dL (Normal) Range: 5-40 45-Kuj-078117:00 TSH 0.84 {uIU/mL} (Normal) Range: 0.34-4.82 Plan [...] of skin Planned Observations Vitamin D Hydroxy (79764)Indication: Vitamin D deficiency On: 44-Kkw-514917:25 Request URINALYSIS, W/ MICRO (40094)Indication: Chronic kidney disease, stage 3 On: :25 Request LIPID PANEL (60399)Indication: Mixed hyperlipidemia On: :25 Request CBC W/AUTO DIFF WBC (03306)Indication: Chronic kidney disease, stage 3 On: 76-Bbr-178133:25 Request METABOLIC PANEL, COMPREHENSIVE (62059)Indication: Chronic kidney disease, stage 3 On: :25 Request HGB A1C (47969)Indication: Diabetes mellitus type II, controlled On: 07-Vto-303981:24 Request Parathyroid Hormone-related Peptide (PTH-rP) (53736)Indication: Vitamin D deficiency On: 8-Emq-586691:43 Request Comments: send results to Dr. Santana fax: [phone] VITAMIN D, 1, 25-DIHYDROXY (37758)Indication: Vitamin D deficiency On: 7-Uzf-337044:42 Request Comments: send results to Dr. Santana fax: [phone] Clostridium difficile Toxin A+B, EIA (00411)Indication: Chronic diarrhea On: 8-Wha-400855:36 Request Vitamin D Hydroxy (05425)Indication: Osteopenia On: 9-Opz-349445:20 Request CBC W/AUTO DIFF WBC (63754)Indication: Hypertension, benign On: 7-Aye-991694:16 Request CALCIFEDIOL (62329)Indication: Chronic kidney disease, stage 3 On: :04 Request Renal function Panel (00881)Indication: Chronic kidney disease, stage 3 On: :04 Request Magnesium (32062)Indication: Chronic kidney disease, stage 3 On: :04 Request MICROALBUMIN: CREATININE RATIO (74345) AND (69801)Indication: Chronic kidney disease, stage 3 On: 03-Aug-20169:04 Request Parathyroid Hormone-related Peptide (PTH-rP) (32917)Indication: Chronic kidney disease, stage 3 On: :04 Request T4, FREE (THYROXINE) (55163)Indication: Cold feeling On: :31 Request TSH (24274)Indication: Cold feeling On: :31 Request PARATHORMONE (69105)Indication: Chronic kidney disease, stage 3 On: :18 Request Comments: copy to Dr. Santana [phone] CALCIFIDIOL (51539) VIT D 25Indication: Chronic kidney disease, stage 3 On: :16 Request Comments: copy to Dr. Santana [phone] MAGNESIUM (59191)Indication: Chronic kidney disease, stage 3 On: :15 Request Comments: copy to Dr. Santana [phone] PROTEIN/CREAT RATIO, URINE (29205)Indication: Chronic kidney disease, stage 3 On: :15 Request Comments: copy to Dr. Santana [phone] LIPID PANEL (69679)Indication: Mixed hyperlipidemia On: :21 Request CBC with auto diff (25243)Indication: Diabetes mellitus type II, controlled On: 73-Cwz-090548:20 Request METABOLIC PANEL, COMPREHENSIVE (15753)Indication: Diabetes mellitus type II, controlled On: 80-Szr-735015:20 Request HGB A1C (21280)Indication: Diabetes mellitus type II, controlled On: 46-Tct-831910:10 Request Vitamin D Hydroxy (69403)Indication: Osteopenia On: 36-Ngc-224227:08 Request TSH (THYROID STIMULATING HORMONE) (78781)Indication: Depression On: 19-Ozj-244563:06 Request LIPID PANEL (47755)Indication: Other and unspecified hyperlipidemia On: 72-Qeh-657920:06 Request CBC with auto diff (82761)Indication: Diabetes mellitus type II, controlled On: 84-Thp-255065:06 Request METABOLIC PANEL, COMPREHENSIVE (29159)Indication: Diabetes mellitus type II, controlled On: 38-Zqh-731151:06 Request CREATININE CLEARANCE (94449)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 On: 3-Bmx-143747:38 Request Total Protein,24 Hour Urine (10007)Indication: 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 On: 9-Xqp-649683:38 Request CBC W/AUTO DIFF WBC (82383)Indication: Diabetes mellitus type II, controlled On: 48-Lhz-208905:11 Request HgA1C , Office (00742)Indication: Diabetes mellitus type II, controlled On: 98-Dru-606381:23 Request CULTURE, SPUTUM (55890)Indication: Cough On: 95-Iuh-637267:47 Request HEPATIC FUNCTION PANEL (69653)Indication: Elevated LFTs On: 12-Ean-19765:24 Request CREATININE CLEARANCE (25551)Indication: 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 On: :33 Request 24 hour urine for Protein (77321)Indication: 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 On: :33 Request CBC WITH MANUAL DIFF (07015)Indication: Diabetes mellitus type II, controlled On: :29 Request METABOLIC PANEL, COMPREHENSIVE (02554)Indication: Diabetes mellitus type II, controlled On: :29 Request LIPID PANEL (32760)Indication: Mixed hyperlipidemia On: :29 Request CREATININE CLEARANCE (87368)Indication: 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 On: 7-Exv-231771:45 Request 24 hour urine for Protein (83058)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 On: 2-Nce-918972:45 Request CREATININE CLEARANCE (68982)Indication: 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 On: 65-Ury-478288:57 Request 24 hour urine for Protein (47112)Indication: 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 On: 98-Psf-426727:57 Request METABOLIC PANEL, COMPREHENSIVE (37349)Indication: Hypertension, benign On: 08-Hku-66720:32 Request LIPID PANEL (61405)Indication: Mixed hyperlipidemia On: 55-Xom-59068:32 Request C-REACTIVE PROTEIN (63442)Indication: Fatigue On: :24 Request SED RATE ERYTHROCYTE (00362)Indication: Headache On: :24 Request VITAMIN B-12 (CYANOCOBALAMIN) (37163)Indication: Fatigue On: 35-Zpt-91165:24 Request LIPID PANEL (71966)Indication: Mixed hyperlipidemia On: :41 Request CBC WITH MANUAL DIFF (05689)Indication: Hypertension, benign On: :41 Request METABOLIC PANEL, COMPREHENSIVE (55325)Indication: Hypertension, benign On: 5-Svk-988374:41 Request CREATININE CLEARANCE (96064)Indication: 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 On: 6-Hta-016382:34 Request 24 hour urine for Protein (15963)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 On: 0-Uyv-754479:34 Request LIPID PANEL (58644)Indication: Mixed hyperlipidemia On: :22 Request HEPATIC FUNCTION PANEL (76767)Indication: Mixed hyperlipidemia On: :22 Request Vitamin D Hydroxy (47735)Indication: Hypercalcemia On: :22 Request PHOSPHORUS (63852)Indication: Hypercalcemia On: : Request PARATHORMONE (89936)Indication: Hypercalcemia On: :22 Request METABOLIC PANEL, COMPREHENSIVE (38386)Indication: Hypercalcemia On: :22 Request CBC WITH MANUAL DIFF (64140)Indication: fsgs On: :58 Request LIPID PANEL (94492)Indication: Mixed hyperlipidemia On: :58 Request METABOLIC PANEL, COMPREHENSIVE (85319)Indication: Hypertension, benign On: :58 Request Blood Glucose , Office (76238)Indication: Diabetes mellitus type II, controlled On: 6-Eic-148156:10 Request TSH (97061)Indication: Diabetes mellitus type II, controlled On: 46-Jnq-828883:51 Request METABOLIC PANEL, COMPREHENSIVE (69653)Indication: Diabetes mellitus type II, controlled On: 51-Tdm-605912:51 Request CBC WITH MANUAL DIFF (57338)Indication: Diabetes mellitus type II, controlled On: 31-Vvq-825260:51 Request MICROALBUMIN: CREATININE RATIO (31237) AND (23924)Indication: Diabetes mellitus type II, controlled On: 79-Szk-761437:51 Request HEPATIC FUNCTION PANEL (43204)Indication: Other and unspecified hyperlipidemia On: 76-Nci-919623:51 Request LIPID PANEL (27560)Indication: Other and unspecified hyperlipidemia On: 23-Fkf-540829:51 Request HgA1C , Office (70082)Indication: Diabetes mellitus type II, controlled On: 85-Qtj-978702:37 Request Blood Glucose , Office (79530)Indication: Diabetes mellitus type II, controlled On: 02-Biu-429985:37 Request Planned Encounters Medical; [facility] 3 Month FU - On: 22-Mar-2018 11:00 [facility] Fast DO, Chaparrita A Fast DO, Chaparrita A Planned Procedures DRAIN/INJECT MAJOR JOINT On: 31-Jan-2018 Intent OR BURSA ()By: Comments: Lot#[id number]:[id number]:intra articular Site given:left knee Given By: Dr. Singh ABN signed Keri Singh MD DRAIN/INJECT MAJOR JOINT On: 24-Jan-2018 Intent OR BURSA ()By: Comments: Lot#[id number]: 3-80-16Ixnlr:intra artciular Site given:left knee Given By: Dr. Singh ABN signed Euflexxa Keri Singh MD Echo CompleteBy: Fast DO, On: 16-Dec-2017 Intent Chaparrita A Fast DO, Chaparrita A Flu Vaccine On: 16-Dec-2017 Intent (Quadrivalent) 39186Qw: Comments: Lot: #[id number]: 10/01/18Site: L dltd, IMDose prefilled syringegiven by: Jamie reviewed and ABN signed Fast DO, Chaparrita A Fast DO, Chaparrita A Kenalog Injection, 10 mgm On: 03-Oct-2017 Intent (J3301)By: Francisco MANN, Comments: lot: [id number]: 11/20site/route: L knee Keri Alonzo Cartoid DopplerBy: Fast On: 12-Sep-2017 Intent DO, Chaparrita A Fast DO, Comments: november Chaparrita A SCREENING DIGITAL On: 12-Sep-2017 Intent TOMOSYNTHESIS OF BREAST Comments: due november 02 (34523)By: Fast DO, Chaparrita A Fast DO, Chaparrita A Kenalog Injection, 10 mgm On: 06-Jun-2017 Intent (J3301)By: Francisco MANN, Comments: bupivacacine 0.5% [id number] exp 09-20 kenalog 40 mg injected in. [id number] 07-21 Keri Alonzo MRI OF BRAIN WITH AND On: 06-Jun-2017 Intent WITHOUT CONTRAST (05394)By: Fast DO, Chaparrita A Fast DO, Chaparrita A ELECTROCARDIOGRAM, On: 06-Jun-2017 Intent COMPLETE (ECG) (07039)By: Comments: ekg showed normal sinus rhythym, normal axis, no acute st/t wave changes Fast DO, Chaparrita A Fast DO, Chaparrita A INFUSION, NORMAL SALINE On: 10-May-2017 Intent SOLUTION , 1000 CC Comments: 2 liters total (Special Coverage Instructions Apply. See [facility]: 2048) (J7030)By: Fast DO, Chaparrita A Fast DO, Chaparrita A INFUSION, NORMAL SALINE On: 10-May-2017 Intent SOLUTION , 1000 CC Comments: lot:[id number]:IV left anticub dose:1000ml given by:eliazar Araya LPN (Special Coverage Instructions Apply. See [facility]: 2048) (J7030)By: Fast DO, Chaparrita A Fast DO, Chaparrita A Radiology - Chest- PA and On: 05-May-2017 Intent LatBy: Keri Singh MD Aerosol Treatment On: 05-May-2017 Intent (82668)By: Keri Singh MD Radiology - ChestBy: On: 05-May-2017 Intent Keri Singh MD Comments: call wet read DRAIN/INJECT MAJOR JOINT On: 28-Feb-2017 Intent OR BURSA ()By: Comments: 1 cc Kenelog #[id number] cc Marcaine #[id number] Keri Singh MD Kenalog Injection, 10 mgm On: 28-Feb-2017 Intent (J3301)By: Keri Singh MD ELECTROCARDIOGRAM, On: 10-Jan-2017 Intent COMPLETE (ECG) (43175)By: Comments: ekg showed normal sinus rhythym, normal axis, no acute st/t wave changes Fast DO, Chaparrita A Fast DO, Chaparrita A Flu Vaccine On: 27-Dec-2016 Intent (Quadrivalent) 47171Gh: SHONDA Andrade DRAIN/INJECT MAJOR JOINT On: 20-Aug-2016 Intent OR BURSA ()By: Keri Singh MD DRAIN/INJECT MAJOR JOINT On: 13-Aug-2016 Intent OR BURSA ()By: Comments: lot: [id number]:intra articular dose:2ml given by:Dr. Francisco Araya LPN injection #3 SHONDA Andrade DOPPLER ULTRASOUND OF On: 10-Aug-2016 Intent RIGHT CAROTID ARTERY Comments: end october (92129)By: Fast DO, Chaparrita A Fast DO, Chaparrita A DEXA SCAN AXIAL SKELETON On: 10-Aug-2016 Intent (37083)By: Fast DO, Chaparrita Comments: end october A Fast DO, Chaparrita A SCREENING DIGITAL On: 10-Aug-2016 Intent TOMOSYNTHESIS OF BREAST Comments: end october (82630)By: Fast DO, Chaparrita A Fast DO, Chaparrita A DRAIN/INJECT MAJOR JOINT On: 06-Aug-2016 Intent OR BURSA ()By: Keri Singh MD DRAIN/INJECT INTERMED On: 06-Aug-2016 Intent JOINT/BURSA ()By: Comments: lot:[id number]:left knee dose:2mlgiven by:Dr. Singh ABN signedER, [employer] injection number 2 SHONDA Andrade Venous Doppler - LeftBy: On: 03-Aug-2016 Intent Fast DO, Chaparrita A Fast DO, Comments: This is set up for August 05 at 11am- spoke with Rina in cv. Chaparrita A DRAIN/INJECT INTERMED On: 30-Jul-2016 Intent JOINT/BURSA ()By: Comments: lot:[id number]:intra articular left knee dose: 2ml given by: Dr. Singh ABN signedER, [employer] EM[employer] injection #1 Keri Singh MD Radiology - Knee - On: 26-May-2016 Intent LeftBy: Fast DO, Chaparrita A Fast DO, Chaparrita A Flu Vaccine On: 27-Jan-2016 Intent (Quadrivalent) 27032Rs: Comments: Lot #:[id number] date:10/01/16mount given:0.5mlRoute: IMSite given: left deltoidGiven by: CARMELINA Hook Fast DO, Chaparrita A Fast DO, Chaparrita A ADMINISTRATION OF On: 27-Jan-2016 Intent INFLUENZA VIRUS VACCINE (G0008)By: Fast DO, Chaparrita A Fast DO, Chaparrita A DOPPLER ULTRASOUND OF On: 22-Oct-2015 Intent RIGHT CAROTID ARTERY (63019)By: Fast DO, Chaparrita A Fast DO, Chaparrita A MAMMOGRAM, SCREENING, On: 22-Oct-2015 Intent BOTH BREAST (59630)By: Fast DO, Chaparrita A Fast DO, Chaparrita [...] A Flu Vaccine On: 11-Feb-2015 Intent (Quadrivalent) [id number]: Fast DO, Chaparrita A Fast DO, Chaparrita A EKG (47451)By: Ambrocio WOLFF, On: 05-Nov-2014 Intent Chaparrita A Fast DO, Chaparrita A Comments: ekg showed normal sinus rhythym, normal axis, no acute st/t wave changes left axis DRAIN/INJECT SMALL JOINT On: 07-Oct-2014 Intent OR BURSA ()By: Francisco MANN, Keri Alonzo MAMMOGRAM, SCREENING, On: 02-Aug-2014 Intent BOTH BREAST (44918)By: Comments: september Fast DO, Chaparrita A Fast DO, Chaparrita A Cartoid DopplerBy: Fast On: 02-Aug-2014 Intent DO, Chaparrita A Fast DO, Chaparrita A DEXA SCAN AXIAL SKELETON On: 09-Apr-2014 Intent (69818)By: Ambrocio DO, Chaparrita A Fast DO, Chaparrita A Prevnar 13 (36030)By: On: 30-Jan-2014 Intent Fast DO, Chaparrita A Fast DO, Comments: Lot:[id number]:05/20Dose:0.5Route:imSite:l armGiven By:Jarred signed Chaparrita A FLU VAC, SPLIT, >3 YEARS, On: 16-Jan-2014 Intent INTRAMUSC (34619)By: Amborcio Comments: Lot #:[id number] date:12/2015Amount given:0.5mlRoute: IMSite given: left deltoidGiven by: CARMELINA Hook DO, Chaparrita A Fast DO, Chaparrita A ADMINISTRATION OF On: 16-Jan-2014 Intent INFLUENZA VIRUS VACCINE (G0008)By: Ambrocio WOLFF, Chaparrita A Fast DO, Chaparrita A EKG (15205)By: Ambrocio WOLFF, On: 17-Oct-2013 Intent Chaparrita A Fast DO, Chaparrita A Comments: ekg showed normal sinus rhythym, left axis, no acute st/t wave changes Radiology - Chest- PA and On: 17-Sep-2013 Intent LatBy: Fast DO, Chaparrita A Fast DO, Chaparrita A Aerosol Treatment On: 17-Sep-2013 Intent (74818)By: Fast DO, Chaparrita A Fast DO, Chaparrita A MRI - BrainBy: Fast DO, On: 22-Jul-2013 Intent Chaparrita A Fast DO, Chaparrita A Cartoid DopplerBy: Fast On: 20-Jul-2013 Intent DO, Chaparrita A Fast DO, Chaparrita A MAMMOGRAM, SCREENING, On: 20-Jul-2013 Intent BOTH BREASTS (96934)By: Fast DO, Chaparrita A Fast DO, Chaparrita A Eprescribed prescriptions On: 20-Jul-2013 Intent (G8553)By: Fast DO, Chaparrita A Fast DO, Chaparrita A Eprescribed prescriptions On: 02-Feb-2013 Intent (G8553)By: Марина Concepcion FLU VAC, SPLIT, >3 YEARS, On: 03-Jan-2013 Intent INTRAMUSC (06368)By: Comments: Lot #:[id number] date:mount given:0.5mlRoute: IMSite given: L dltdVIS and [...] Марина Concepcion Ear Irrigation On: 13-Jun-2012 Intent (49436)By: Ivy Peter Comments: Ear Irrigation performed on: right earAmount/color removed cerumen: light brown, small amount removedOUtcome:Pt toleratedUsed wax curettes Wax Currettes (72397)By: On: 13-Jun-2012 Intent Ivy Peter PNEUM VAC ADLT/IMUMNOSPR, On: 13-Jun-2012 Intent SBC/INTRM (58572)By: Ambrocio Comments: Lot:[id number]:09/09/13Dose:0.5mLRoute:IMSite:L armGiven By:BHUMI signed DO, Chaparrita A Fast DO, Chaparrita A EKG ([id number])By: Ambrocio DO, On: 13-Jun-2012 Intent Chaparrita A [...] MAMMOGRAM, SCREENING, On: 28-Dec-2011 Intent BOTH BREASTS ([id number])By: Fast DO, Chaparrita A Fast DO, Chaparrita A DXA, BONE DENSITY, AXIAL On: 28-Dec-2011 Intent SKELETON ([id number])By: Fast DO, Chaparrita A Fast DO, Chaparrita [...] SPLIT, >3 YEARS, On: 28-Dec-2011 Intent INTRAMUSC ([id number])By: Comments: Lot #:[id number] date:mount given:0.5mlRoute: IMSite given: left deltoidGiven by: CARMELINA Hook Jennifer ADMINISTRATION OF On: 28-Dec-2011 Intent INFLUENZA VIRUS VACCINE ([id number])By: Марина Concepcion Aerosol Treatment On: 30-Nov-2011 Intent ([id number])By: Johanna Chang CNP CT - Abdomen & PelvisBy: On: 21-Sep-2011 Intent Fast DO, Chaparrita A Fast DO, Comments: with special cuts through the kidney- october Chaparrita A EKG ([id number])By: Jamey, On: 15-Jun-2011 Intent Марина Comments: ekg [...] Comments: Call results to Dr. Albrecht @ [phone] as soon as resulted please. DO, Chaparrita A Fast DO, Chaparrita A Eprescribed prescriptions On: 11-Jan-2011 Intent ([id number])By: Ambrocio DO, Chaparrita A Fast DO, Chaparrita A MAMMOGRAM, SCREENING, On: 11-Jan-2011 Intent BOTH BREASTS ([id number])By: Fast DO, Chaparrita A Fast DO, Chaparrita A CT - Sinuses CompleteBy: On: 11-Jan-2011 Intent Fast DO, Chaparrita A Fast DO, Chaparrita A Cartoid DopplerBy: Fast On: 11-Jan-2011 Intent DO, Chaparrita A Fast DO, Chaparrita A ADMINISTRATION OF On: 11-Jan-2011 Intent INFLUENZA VIRUS VACCINE ([id number])By: Марина Concepcion FLU VAC, SPLIT, >3 YEARS, On: 11-Jan-2011 Intent INTRAMUSC ([id number])By: Марина Concepcion Eprescribed prescriptions On: 12-Oct-2010 Intent ([id number])By: Fast DO, Chaparrita A Fast DO, Chaparrita A Renal DopplerBy: Fast DO, On: 12-Oct-2010 Intent Chaparrita A Fast DO, Chaparrita A Cartoid DopplerBy: Fast On: 12-Oct-2010 Intent DO, Chaparrita A Fast DO, Comments: dec Chaparrita A TDAP VACCINE >7 IM On: 13-May-2010 Intent ([id number])By: Rivka MENDEZ, Comments: Lot #[id number]-left deltoidgiven by:TIFFANY Malik EKG ([id number])By: Jamey, On: 13-May-2010 Intent Марина Comments: ekg showed normal sinus rhythym, normal axis, no acute st/t wave changes Aerosol Treatment On: 22-Dec-2009 Intent ([id number])By: Johanna Chang CNP Cartoid DopplerBy: Fast On: 01-Dec-2009 Intent DO, Chaparrita A Fast DO, Chaparrita A MAMMOGRAM, SCREENING, On: 01-Dec-2009 Intent BOTH BREASTS ([id number])By: Fast DO, Chaparrita A Fast DO, Chaparrita A DXA, BONE DENSITY, AXIAL On: 01-Dec-2009 Intent SKELETON ([id number])By: Fast DO, Chaparrita A Fast DO, Chaparrita A Ultrasound - SpleenBy: On: 17-Jun-2009 Intent Fast DO, Chaparrita A Fast DO, Chaparrita A EKG ([id number])By: Jamey, On: 10-Mar-2009 Intent Марина Comments: ekg showed normal sinus rhythym, normal axis, no acute st/t wave changes FLU VAC, SPLIT, >3 YEARS, On: 09-Jan-2009 Intent INTRAMUSC ([id number])By: Comments: Lot #[id number]-left deltoidDose0.5mlgiven by Stacy Street LPN ADMINISTRATION OF On: 09-Jan-2009 Intent INFLUENZA VIRUS VACCINE ([id number])By: Stacy Jorge MAMMOGRAM, SCREENING, On: 04-Dec-2008 Intent BOTH BREASTS ([id number])By: Fast DO, Chaparrita A Fast DO, Chaparrita A MAMMOGRAM, SCREENING, On: 03-Sep-2008 Intent BOTH BREASTS ([id number])By: Fast DO, Chaparrita A Fast DO, Chaparrita A FLU VAC, SPLIT, >3 YEARS, On: 16-Jan-2008 Intent INTRAMUSC ([id number])By: Gilmer Comments: Lot #: [id number] date: 09/10Amount given: 0.5 mlRoute: IMSite given: Left deltoidGiven by: Olivia eBll LPN RN, Janet ADMINISTRATION OF On: 16-Jan-2008 Intent INFLUENZA VIRUS VACCINE ([id number])By: Janet Scherer RN EKG ([id number])By: Ambrocio DO, On: 29-Aug-2007 Intent Chaparrita A Fast DO, Chaparrita A Comments: done km ADMINISTRATION OF On: 29-Aug-2007 Intent PNEUMOCOCCAL VACCINE ([id number])By: Fast DO, Chaparrita A Fast DO, Chaparrita A PNEUM VAC ADLT/IMUMNOSPR, On: 29-Aug-2007 Intent SBC/INTRM ([id number])By: Ambrocio Comments: 0.5cc given im lt arm [id number] exp 02-13-08 DO, Chaparrita A Fast DO, Chaparrita A DXA, BONE DENSITY, AXIAL On: 29-Aug-2007 Intent SKELETON ([id number])By: Fast DO, Chaparrita A Fast DO, Chaparrita A MAMMOGRAM, SCREENING, On: 29-Aug-2007 Intent BOTH BREASTS ([id number])By: Fast DO, Chaparrita A Fast DO, Chaparrita [...] new people and be involved in the judaism 0 bps are good and sugar looking [...] medical issues: she has been working with [employer] and trying to work on that- she got rid of respiratory infection but was sick for weeks and was on pred so her sugar up and chol up a bit- trying to add protein shakes drink more water- she is starting back at [facility]- diarrhea resolved- we did talk about going [...] that she had episode where went to [place] and she couldnt remember where she was- and happened one other time where she didnt recognize the roads- sister had alzheimer s- weight down because was sick- but coming back up- she hasnt done counseling with hospice has been thru before- she lonely- not necessarily unhappy- she doing self help she is singing with judaism- -rodriguez gars are all in low 100s-130- going to [place] for a month next monthEncounter Diagnosis: Nonsmoker, [...] Eddie and bp is good she joined [employer] sugar up bit doi ng ice cream-the bone density reviewed little thinner she not exercising routienly until just recent at [facility] and sees kidney doc next week and [...] Meningioma (Renamed from ABNRM RESULT, FUNCTION STUDY, BRAIN/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)) [facility] [...] Meningioma (Renamed from ABNRM RESULT, FUNCTION STUDY, 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/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)), Diabetes, Type II, controlled [...] cant take byetta due to cost in [facility]- - takes ??lorazepam 1-2 times a [...] Meningioma (Renamed from ABNRM RESULT, FUNCTION STUDY, BRAIN/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)), Colon Polyp [facility] [...] Meningioma (Renamed from ABNRM RESULT, FUNCTION STUDY, BRAIN/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)), OCCLUSION AND STENOSIS OF [...] Meningioma (Renamed from ABNRM RESULT, FUNCTION STUDY, 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/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)), Chronic glomerulonephritis with lesion [...] Meningioma (Renamed from ABNRM RESULT, FUNCTION STUDY, BRAIN/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)), Other and unspecified hyperlipidemia [...] Meningioma (Renamed from ABNRM RESULT, FUNCTION STUDY, BRAIN/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)) [facility] [...] Meningioma (Renamed from ABNRM RESULT, FUNCTION STUDY, BRAIN/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)), Gerd (530.81), Hyperlipidemia, Unspecified [...] Meningioma (Renamed from ABNRM RESULT, FUNCTION STUDY, BRAIN/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)), Hypertension,benign(401.1), OCCLUSION AND STENOSIS [...] Meningioma (Renamed from ABNRM RESULT, FUNCTION STUDY, BRAIN/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)), Diabetes, Type II, controlled [...] Meningioma (Renamed from ABNRM RESULT, FUNCTION STUDY, BRAIN/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)), Hypertension,benign(401.1), Osteopenia (733.90), Depression [...] weight down 23 pounds- and trying joined [employer]- she feels well - she increased celexa [...] Meningioma (Renamed from ABNRM RESULT, FUNCTION STUDY, BRAIN/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)), Chronic glomerulonephritis with lesion [...] Meningioma (Renamed from ABNRM RESULT, FUNCTION STUDY, BRAIN/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)) End: 26-Jan-2011 16:53 [facility] Office Visit On: 19-Jan-2011 14:30 Encounter Diagnosis: brain tumor End: 21-Sep-2011 8:09 [facility] Phone Encounter On: 19-Jan-2011 13:41 Encounter Diagnosis: ABNRM RESULT, FUNCTION STUDY, BRAIN/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) End: 19-Jan-2011 13:44 [facility] [...] WITH RADICULOPATHY (724.4) [facility] Payers MedicareAARP/[facility]; a guarantor
--- OUTSIDE RECORDS SUMMARY | 2018-06-25 22:37 | XMS RPT_ITS | Continuity of Care Document ---
:1940 Author Organization [facility] Address [address] [place] [address] Phone Care Team Providers Name Role Phone [...] Knee pain, unspecified laterality (719.46) Comments: Valorie:lot: [id number]: 09/20site/route: L knee Status: Active Leg pain, [...] Quantity: 30 {Tablet} Refills: 3 Ordered:04-May-2016 SHONDA Andarde Start : 27-Jan-2016 End : 04-May-2016 Inactive [...] spray daily for 0 days Quantity: 1 {[place]} Refills: 0 Ordered:04-May-2016 SHONDA Andrade Start : [...] and dispense 8 ounes TOTAL mixed solutionCal [id number] if questions SPECTAZOLE, 1% (External Cream) 1 [...] End : 11-Feb-2015 Discontinued Comments:th[age], called to [facility] 08-30-14 erussell Allergies and Adverse Reactions [...] Meningioma (Renamed from ABNRM RESULT, FUNCTION STUDY, BRAIN/LINGO CLEANER NEC) (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 2016 right Cholecystectomy Completed lumbar oaftpu==2700 Completed Tonsillectomy Completed Date Value Details 19-Dec-2017 Echocardiogram Complete Result: Comments: See Note; NOTES: [facility] Cardiovascular Services [address] [place] [address] Echo Complete 12/19/17 0800 MR#: [id number] Acct: [id number] Name: CLARENCE ALBERT ep #: [id number] : 1940 77 From: Chuckie Cormier MD Attending Dr: Chaparrita Albrecht DO Status: REG CLI Ordering Dr: Chaparrita Albrecht DO Date: 12/19/17 Location: [facility] Sex: F C Admitted: Reason For [...] Dictated: 12/19/17 0800 Date Transcribed: 12/19/17 1022 Wood Gouger: Signed 07-Dec-2017 Carotid Duplex Ultrasound Result: Comments: See Note; NOTES: [facility] Cardiovascular Services [address] [place] [address] Carotid Duplex Ultrasound 12/06/17 0901 MR#: [id number] Acct: [id number] Name: CLARENCE WHITTINGTON Rep #: [id number] : 1940 77 From: Anurag Loya MD [...] the left vertebral artery. Procedure Carotid Duplex 50560. Exam performed in department. Interpretation Summary Mild (<50%) stenosis right extracranial internal carotid. Mild (<50%) stenosis left extracranial internal carotid. Flow within the vertebral arteries is antegrade bilaterally. __ __ Ordering Physician: Chaparrita Albrecht Performed By: Margot Benton RVT and Student 12/07/17 0809 Date Anurag Loya MD CC: Chaparrita Albrecht DO Date Dictated: 12/06/17900 Date Transcribed: 12/07/17808 Wood Gouger: Signed 06-Dec-2017 SCREENING MAMM (CAD), BILAT Result: Comments: See Note; NOTES: [facility] Imaging Services [address] [place] [address] SCREENING MAMM (CAD), BILAT MR#: [id number] Acct: [id number] Name: CLARENCE ALBERT Rep #: [id number] : 1940 F 77 From: Misael Hebert MD PCP: Chaparrita Albrecht DO Status: REG CLI Study: SCREENING MAMM (CAD), BILAT Date of Exam: 12/06/17 Exam# [id number] Ordering Dr: Chaparrita Albrecht DO MAMM OGRAPHY [...] delay biopsy of a clinically suspicious abnormality. CX6610 Electronically Signed: Misael Hebert MD at 15:31 EDT Tel [phone], rvice support , CC: Chaparrita Albrecht DO Wood Gouger: Signed 10-Jun-2017 Brain W/WO Contrast Result: Comments: See Note; NOTES: [facility] Imaging Services [address] [place] [address] Brain W/WO Contrast MR#: [id number] Acct: [id number] Name: CLARENCE ALBERT Rep #: [id number] : 1940 F 77 From: Laya Montilla MD PCP: Chaparrita Albrecht DO Status: REG CLI Study: Brain W/WO Contrast Date of Exam: 06/10/17 Exam# [id number] Ordering Dr: Chaparrita Albrecht DO STUDY: MRI [...] Service support , CC: Chaparrita Albrecht DO Wood Gouger: Signed 05-May-2017 Chest PA and Lateral Result: Comments: See Note; NOTES: [facility] Imaging Services [address] [place] [address] Chest PA and Lateral MR#: [id number] Acct: [id number] Name: CLARENCE ALBERT Rep #: [id number] : 1940 F 77 From: Edwar Patino MD PCP: Chaparrita Albrecht DO Status: REG CLI Study: Chest PA and Lateral Date of Exam: 05/05/17 Exam# [id number] Ordering Dr: Keri Singh MD STUDY: X-RAY [...] CC: Keri Singh MD; Chaparrita Albrecht DO Wood Gouger: Signed 02-Nov-2016 Dexa Bone Density Study (HP) Result: Comments: See Note; NOTES: [facility] Imaging Services [address] [place] [address] Verdana 4d Dexa Bone Density Study (HP) MR#: [id number] Acct: [id number] Name: LYNNE ALBERT Rep #: [id number] : 1940 F 76 From: Misael Hebert MD PCP: Chaparrita Albrecht DO Status: REG CLI Study: Dexa Bone Density Study () Date of Exam: 11/02/16 Exam# [id number] Ordering Dr: Laura DO STUDY: DUAL ENERGY [...] Misael Hebert MD at 11:02 EDT Tel [phone], Service support , CC: Chaparrita Albrecht DO Wood Gouger: Signed 02-Nov-2016 SCREENING MAMM (CAD), BILAT Result: Comments: See Note; NOTES: [facility] Imaging Services [address] [place] [address] Verdana 4d SCREENING MAMM (CAD), BILAT MR#: [id number] Acct: [id number] Name: CLARENCE ALBERT Rep #: [id number] : 1940 F 76 From: Misael Hebert MD PCP: Chaparrita Albrecht DO Status: [facility] CLI Study: SCREENING MAMM (CAD), BILAT Date of Exam: 11/02/16 Exam# [id number] Ordering Dr: Case Albrecht DO MAMMOGRAPHY - [...] delay biopsy of a clinically suspicious abnormality. [id number] Electronically Signed: Misael Hebert MD at 12:44 EDT Tel [phone], Service support , CC: Chaparrita Albrecht DO Wood Gouger: Signed 05-Aug-2016 Venous Duplex Lower Extremity Result: Comments: See Note; NOTES: [facility] Cardiovascular Services [address] [place] [address] Venous Duplex US, Unilateral 08/05/16 1053 MR#: [id number] Acct: [id number] Name: CLARENCE WEI Rep #: [id number] : 1940 76 From: Elvin Natarajan MD [...] Dictated: 08/05/16 1053 Date Transcribed: 08/05/16 1127 Wood Gouger: Signed 27-May-2016 Knee 4 or More Views Result: Comments: See Note; NOTES: [facility] Imaging Services [address] [place] [address] Verdana 4d Knee 4 or More Views MR#: [id number] Acct: [id number] Name: CLARENCE ALBERT Rep #: [id number] : 1940 F 76 From: Misael Hebert MD PCP: Chaparrita Albrecht DO Status: REG CLI Study: Knee 4 or More Views Date of Exam: 05/27/16 Exam# [id number] Ordering Dr: Kylah Linda UDY: X-RAY - [...] MD at 10:41 EST , Service support [phone], CC: Chaparrita Albrecht DO; Kylah Linda DO Wood Gouger: Signed 13-May-2016 Sinus/Facial Bone Result: Comments: See Note; NOTES: [facility] Imaging Services [address] [place] [address] Verdana 4d Sinus/Facial Bone MR#: [id number] Acct: [id number] Name: ALBERTCLARENCE J Rep #: [id number] : 1940 F 76 From: Godwin Winter MD PCP: Chaparrita Albrecht DO Status: REG CLI Study: Sinus/Facial Bone Date of Exam: 05/13/16 Exam# [id number] Ordering Dr: Alejandro Silverman MD STUDY: CT [...] MD at 7:35 EST , Service support [phone], CC: Chaparrita Albrecht DO; Alejandro Silverman MD Wood Gouger: Signed 21-Apr-2016 Emergency Department Summary Result: Comments: See Note; NOTES: [facility] Medical Records Department [address] [place] [address] Emergency Department Summary MR#: [id number] Acct: [id number] Name: CLARENCE ALBERT Rep #: [id number] : 1940 76 From: Carissa Murphy MD [...] epistaxis. CARISSA MURPHY MD T: NTS JOB: [id number] 04/21/16805 <Electronically signed by Carissa Murphy MD> Date Carissa donovan MD Cosigner Signature (If Indicated): Date CC: Chaparrita Albrecht DO Date Dictated: 04/20/161711 Date Transcribed: 04/20/161711 Wood Gouger: Signed 20-Apr-2016 Discharge Instruction Result: Comments: See Note; NOTES: [facility] Medical Records Department [address] [place] [address] Discharge Instruction 04/20/16 1303 MR#: [id number] Acct: [id number] Name: CLARENCE ALBERT Rep #: [id number] : 1940 76 From: Carissa Murphy MD PCP: Chaparrita Albrecht DO Status: [facility] ER ED Disposition - Plan for [...] your Primary Care Provider. Call [facility] ([phone]) or report to the closest Emergency Room. Call 911 if necessary. 04/20/16 7795 <Electronically signed by Carissa Murphy MD> Date Carissa Murphy MD Cosigner Signature (If I ndicated): Date CC: Chaparrita Albrecht DO 02-Nov-2015 Carotid Duplex Ultrasound Result: Comments: See Note; NOTES: [facility] Cardiovascular Services [address] [place] [address] Carotid Duplex Ultrasound 10/30/15 1100 MR#: [id number] Acct: [id number] Name: CLARENCE ALBERT Rep #: [id number] : 1940 75 From: Elvin Natarajan MD Attending Dr: Chaparrita Albrecht DO Status: REG CLI Ordering Dr: Chaparrita Albrecht DO Date: 10/30/15 Location: [facility] Sex: F C Adm itted: Reason [...] the left vertebral artery. Procedure Carotid Duplex 75415. The exam was diagnostic. Exam performed in [...] Dictated: 10/30/15 1100 Date Transcribed: 11/02/15 1143 Wood Gouger: Signed 30-Oct-2015 Bilat Scrn Digital AND CAD Result: Comments: See Note; NOTES: [facility] Imaging Services [address] [place] [address] Verdana 4d Bilat Scrn Digital AND CAD MR#: [id number] Acct: [id number] Name: CLARENCE ALBERT Rep #: [id number] : 1940 F 75 From: Andres Brady MD PCP: Chaparrita Albrecht DO Status: REG CLI Study: Saad Jaffe Digital AND CAD Date of Exam: 10/30/15 Exam# [id number] Ordering Dr: Chaparrita Albrecht DO MAMMOGRAPHY - [...] biop sy of a clinically suspicious abnormality. [id number] Electronically Signed: Andres Brady MD at 17:48 EDT Tel , Service support [phone], CC: Chaparrita Albrecht DO Wood Gouger: Signed 30-Oct-2015 Bilat Scrn Digital AND CAD Result: Comments: See Note; NOTES: [facility] Imaging Services [address] [place] [address] Verdana 4d Bilat Scrn Digital AND CAD MR#: [id number] Acct: [id number] Name: CLARENCE ALBERT Rep #: [id number] : 1940 F 75 From: Andres Brady MD PCP: Chaparrita Albrecht DO Status: REG CLI Study: Bilat Scrn Digital AND CAD Date of Exam: 10/30/15 Exam# [id number] Ordering Dr: Chaparrita Albrecht DO MAMMOGRAPHY - [...] abnormalities are identified. CC: Chaparrita Albrecht DO Wood Gouger: Signed 22-Oct-2015 ELECTROCARDIOGRAM, COMPLETE (ECG) (28311) Comments: ekg showed normal sinus rhythym, normal axis, no acute st/t wave changes no change Result: [MEASUREMENTS ANALYSIS] Date of Test: 10/22/2015 14:41:29; Heart Rate: 71; DE Interval: 140; QRS: 94; QT Interval: 384; Corrected QT Interval (QTc): 403; P Wave [place]: 58; QRS Wave [place]: -3; T Wave [place]: 56; Blood Pressure: 128/76 [ECG DIAGNOSTIC STATEMENTS] Date of Test: 10/22/2015 14:41:29; Summary: Sinus Rhythm Low voltage -possible pulmonary disease. ABNORMAL 22-Jul-2015 Kidney and Bladder Result: Comments: See Note; NOTES: [facility] Imaging Services [address] [place] [address] Verdana 4d Kidney and Bladder MR#: [id number] Acct: [id number] Name: Yaniv ALBERT Rep #: [id number] : 1940 F 75 From: Nir Sanchez MD PCP: Chaparrita Albrecht DO Status: REG CLI Study: Kidney and Bladder Date of Exam: 07/22/15 Exam# [id number] Ordering Dr: Chaparrita Albrecht DO STUDY: RENAL [...] Service support , CC: Chaparrita Albrecht DO Wood Gouger: Signed 11-Mar-2015 Knee 4 or More Views Result: Comments: See Note; NOTES: [facility] Imaging Services [address] [place] [address] Verdana 4d Knee 4 or More Views MR#: [id number] Acct: [id number] Name: CLARENCE ALBERT Rep #: [id number] : 1940 F 74 From: Trent Cameron DO PCP: Chaparrita Albrecht DO Status: REG CLI Study: Knee 4 or More Views Date of Exam: 03/11/15 Exam# [id number] Ordering Dr: Case Albrecht DO STUDY: X-RAY [...] at 7:45 EST Tel , Service support [phone], RAD/Knee 4 or More Views IMPRESSION: Degener ative changes within the knee. No acute fracture. Small suprapatellar effusion. Electronically Signed: Trent Cameron DO at 7:45 EST Tel , Service support [phone], CC: Chaparrita Albrecht DO Wood Gouger: Signed 11-Mar-2015 Knee 4 or More Views Result: Comments: See Note; NOTES: [facility] Imaging Services [address] [place] [address] Verdana 4d Knee 4 or More Views MR#: [id number] Acct: [id number] Name: BETY CLARENCE Nazia Rep #: [id number] : 1940 F 74 From: Trent Cameron DO PCP: Chaparrita Albrecht DO Status: REG CLI Study: Knee 4 or More Views Date of Exam: 03/11/15 Exam# [id number] Ordering Dr: Case Albrecht DO STUDY: X-RAY [...] at 7:46 EST Tel , Service support [phone], RAD/Knee 4 or More Views IMPRESSION: Mild degenerative changes. No acute bony abnormality. Electronically Signed: Trent Cameron DO at 7:46 EST Tel , Service support [phone], CC: Chaparrita Albrecht DO Wood Gouger: Signed 18-Oct-2014 Carotid Duplex Ultrasound Result: Comments: See Note; NOTES: [facility] Cardiovascular Services [address] [place] [address] Carotid Duplex Ultrasound 10/18/14 1331 MR#: [id number] Acct: [id number] Na me: CLARENCE ALBERT Rep #: [id number] : 1940 74 From: Elvin Natarajan MD [...] the left vertebral artery. Procedure Carotid Duplex 42488. The exam was diagnostic. Exam performed in [...] Dictated: 10/18/14 1331 Date Transcribed: 10/18/14 1616 Wood Gouger: Signed 18-Oct-2014 Bilat Scrn Digital AND CAD Result: Comments: See Note; NOTES: [facility] Imaging Services [address] [place] [address] Breast Imaging Report MR#: [id number] Acct: [id number] Name: CLARENCE ALBERT Rep #: [id number] : 1940 F 74 From: Misael Hebert MD PCP: Chaparrita Albrecht DO Status: REG CLI Study: Saad Jaffe Digital AND CAD Date of Exam: 10/18/14 Exam# [id number] Ordering Dr: Chaparrita Albrecht DO MAMMOGRAPHY - [...] Misael redmond MD at 13:44 EDT Tel [phone], Service support [phone], CC: Chaparrita Albrecht DO Wood Gouger: Signed 09-Jul-2014 Dexa Bone Density Study (HP) Result: Comments: See Note; NOTES: [facility] Imaging Services [address] [place] [address] Bone Density Report MR#: [id number] Acct: [id number] Name: CLARENCE ALBERT Rep #: [id number] : 1940 F 74 From: Misael Hebert MD PCP: Chaparrita Albrecht DO Status: REG CLI Study: Dexa Bone Density Study (HP) Date of Exam: 07/09/14 Exam# [id number] Ordering Dr: Chaparrita Albrecht DO STUDY: DUAL [...] Angel Hebert MD at 14:55 EDT Tel [phone], Service support [phone], CC: Chaparrita Albrecht DO Wood Gouger: Signed 17-Sep-2013 Chest PA and Lateral Result: Comments: See Note; NOTES: [facility] Imaging Services [address] [place] [address] Radiology Report MR#: [id number] Acct: [id number] Name: CLARENCE ALBERT Rep #: [id number] : 1940 F 73 From: David Bennett MD PCP: Chaparrita Albrecht DO Status: REG CLI Study: Chest PA and Lateral Date of Exam: 09/17/13 Exam# [id number] Ordering Dr: Chaparrita Albrecht DO STUDY: X-RAY [...] MD at 20:44 EDT , Service support [phone], RAD/Chest PA and Lateral IMPRESSION: No focal infiltrate or edema. Electronic ally Signed: David Bennett MD at 20:44 EDT , Service support [phone], CC: Chaparrita Albrecht DO Wood Gouger: Signed 17-Sep-2013 Spirometry (18441) Result: 29-Aug-2013 Carotid Duplex Ultrasound Result: Comments: See Note; NOTES: [facility] Cardiovascular Services [address] [place] [address] Carotid Duplex Ultrasound 08/24/13 0939 MR#: [id number] Acct: [id number] Nam e: CLARENCE ALBERT Rep #: [id number] : 1940 73 From: Anurag Loya MD Attending Dr: Chaparrita Albrecht DO Status: REG CLI Ordering Dr: Chaparrita Albrecht DO Date: 08/24/13 Location: [facility] Sex: F C Admitted: Rt. Velocities/BP [...] in the left bulb. Procedure Carotid Duplex 28005. Exam perfor med in department. Interpretation Summary Mild (<50%) stenosis right extracranial internal carotid. Mild (<50%) stenosis left extracranial internal carotid. Flow within the vertebra l arteries is antegrade bilaterally. Ordering Physician: Chaparrita Albrecht Performed By: Kendal Benton RVT : Chaparrita Albrecht DO Date Dictated: 08/24/13 0939 Date Transcribed: 08/29/13 1118 Wood Gouger: Signed Immunization Name Dates Details Influenza (3 years and up) on: 16-Jan-2008 Comments: Lot #: [id number] date: 09/10Amount given: 0.5 mlRoute: IMSite given: Left deltoidGiven by: Olivia Bell LPN Influenza (3 years and up) on: 09-Jan-2009 Comments: Lot #[id number]-left deltoidDose0.5mlgiven by Marycarmen Jorge LPN Pneumococcal (2 years and up) on: 29-Aug-2007 Comments: 0.5cc given im lt arm [id number] exp 02-13-08 Family History Unknown Family Member [...] Description Value Details :24 HgA1C , Office (60243) HgA1C , Office 6.5 % (Normal) Range: 4.6 - 7.1 :14 LIPID PANEL (95168) Comments: PATIENT WAS FASTINGPERFORMED BY: [employer] [employer] [place] [id number] LDL/HDL Ratio 1.1 {ratio} (Normal) Range: 0.0-3.2 [...] (Normal) Range: 100-199 :14 Vitamin D Hydroxy (58347) Comments: PATIENT WAS FASTINGPERFORMED BY: [employer] [employer] [place] [id number] Vitamin D, 25-Hydroxy 37.8 ng/mL (Normal) Range: 30.0-100.0 Comments: Vitamin D deficiency has been defined by the [place] of[place] and an Endocrine Society practice guideline as alevel of serum 25-OH vitamin D less than 20 ng/mL (1,2).The Endocrine Society went on to further define vitamin Dinsufficiency as a level between 21 and 29 ng/mL (2).1. IOM ([place] of [employer]). 2010. Dietary reference intakes for calcium and D. [place]: The National Academies Press.2. Mira MF, Rosette LOPEZ, Tommy SWAIN, et al. Evaluation, treatment, and prevention of vitamin D deficiency: an Endocrine Society clinical practice guideline. JCEM. 2010; 96(7):1911-30. 5-Dec-20179:14 CBC with auto diff (86372) Comments: PATIENT WAS FASTINGPERFORMED BY: [facility] HospitalYdbeck5430 [facility] [id number] Immature Grans (Abs) 0.0 {x10E3/uL} (Normal) Range: [...] PANEL, COMPREHENSIVE Comments: PATIENT WAS FASTINGPERFORMED BY: [facility]spaceVRMarlton Rehabilitation HospitalOagmzf9017 [facility] [id number] (47777) ALT (SGPT) 10 [iU]/L (Normal) Range: 0-32 [...] 8-27 Glucose 142 mg/dL (Abnormal) Range: 65-99 47-Gif-19821:40 MICROALBUMIN: CREATININE RATIO Comments: PATIENT WAS FASTINGPERFORMED BY: [facility]spaceVRM[facility] HospitalBddmwp3545 [facility] [id number] (20538) AND (65761) Alb/Creat Ratio 4213.3 {mg/g_creat} (Abnormal) Range: 0.0-30.0 Albumin, Urine 3206.3 ug/mL (Normal) Comments: Results confirmed ondilution. Creatinine, Urine 76.1 mg/dL (Normal) :40 CBC & PLATELETS (AUTO) (92402) Comments: please fax to Dr. Austin- [phone]; PATIENT WAS FASTINGPERFORMED BY: [facility]spaceVRAmanda [place] 8658570 [facility] [id number] Platelets 148 {x10E3/uL} (Abnormal) Range: 150-379 RDW 14.8 % (Normal) Range: 12.3-15.4 MCHC 33.6 g/dL (Normal) Range: 31.5-35.7 MCH 29.7 pg (Normal) Range: 26.6-33.0 MCV 89 fL (Normal) Range: 79-97 Hematocrit 36.9 % (Normal) Range: 34.0-46.6 Hemoglobin 12.4 g/dL (Normal) Range: 11.1-15.9 RBC 4.17 {x10E6/uL} (Normal) Range: 3.77-5.28 WBC 4.7 {x10E3/uL} (Normal) Range: 3.4-10.8 41-Olx-77434:40 RENAL FUNCTION PANEL Comments: please fax to Dr. Austin- [phone]; PATIENT WAS FASTINGPERFORMED BY: [facility]spaceVRMarl[facility] Rehabilitation HospitalQesfco2645 [facility] [id number] Information: 936383,[id number] FX DR. SANTANA (81806) Albumin 3.1 g/dL (Abnormal) Range: 3.5-4.8 Phosphorus [...] 133 mg/dL (Abnormal) Range: 65-99 :40 MAGNESIUM (92794) Comments: please fax to Dr. Austin- [phone]; PATIENT WAS FASTINGPERFORMED BY: [facility] Ewzcex4[address] [place] [id number] Magnesium 1.9 mg/dL (Normal) Range: 1.6-2.3 :40 CALCIFEDIOL (46118) Comments: please fax to Dr. Austin- [phone]; PATIENT WAS FASTINGPERFORMED BY: [facility] Zgtqes3751 [address] RoadDublin [place] [id number] Vitamin D, 25-Hydroxy 29.4 ng/mL (Abnormal) Range: 30.0-100.0 Comments: Vitamin D deficiency has been defined by the [place] ofMount [facility] Hospitalcine and an Endocrine Society practice guideline as alevel of serum 25-OH vitamin D less than 20 ng/mL (1,2).The Endocrine Society went on to further define vitamin Dinsufficiency as a level between 21 and 29 ng/mL (2).1. IOM ([place] of Medicine). 2010. Dietary reference intakes for calcium and D. [place]: The National Academies Press.2. Mira MF, Rosette [place], Tommy SWAIN, et al. Evaluation, treatment, and prevention of vitamin D deficiency: an Endocrine Society clinical practice guideline. JCEM. 2010; 96(7):1911-30. :40 PARATHORMONE (19753) Comments: please fax to Dr. Austin- [phone]; PATIENT WAS FASTINGPERFORMED BY: [facility] Nktawl0173 [address]Dublin [place] [id number] PTH, Intact 22 pg/mL (Normal) Range: 15-65 25-Ptc-28305:30 COLON BIOPSY (CHOOSE See Note (Normal) Comments: [facility] [address] [place], [place], [id number] SITE) Comments: Patient: CLARENCE ALBERT : 1940 (77/F) Acct Num: [id number] Phys: Marcus Caldera Unit Num: [id number] Loc: LABSPEC Specimen: [id number] Received: 09/16/171528 Spec Type: Kendal MAURER TISSUES [...] one cassette. / MARCY:dustin 09/19/17 TC:1 CPT: 42331 x2 HEADER OPERATION: Colonoscopy PRE-OP DIAGNOSIS: History of polyps TISSUE SUBMITTED: A Proximal sigmoid polyp, rule out adenoma, B Transversecolon, rule out adenoma MICROSCOPIC DESCRIPTION Slides are reviewed. M ICROSCOPIC DIAGNOSIS A. Proximal sigmoid polyp, biopsy: Fragments of tubular adenoma. B. Transverse colon polyp, biopsy: Fragments of tubular adenoma. SJ:dustin 09/20/17 Signed _ Nacho Ardon 09/20/17 <signature on file> 40-Rmp-30961:24 METABOLIC PANEL, COMPREHENSIVE Comments: PATIENT NOT FASTINGPERFORMED BY: [facility]CoM[facility] HospitalQwtrcv5418 [facility] [id number] (04746) ALT (SGPT) 14 [iU]/L (Normal) Range: 0-32 [...] (Abnormal) Range: 65-99 :07 HgA1C , Office (07640) HgA1C , Office 7.2 % (Abnormal) Range: 4.6 - 7.1 :37 Clostridium difficile Toxin Comments: PATIENT NOT FASTINGPERFORMED BY: [facility]Asc[facility]6370 [facility] [id number] A+B, EIA (87868) C difficile Toxins A+B, EIA Negative (Normal) :37 LEUKOCYTE COUNT, FECAL (62988) Comments: PATIENT NOT FASTINGPERFORMED BY: [facility]Asc[facility]6370 [facility] [id number] Result 1 NWBC (Normal) Comments: No white blood cells seen. White Blood Cells (WBC), Final report (Normal) Stool :37 OVA & PARASITE DIR SMEAR Comments: PATIENT NOT FASTINGPERFORMED BY: [facility] SoftwareAsc[facility]6370 [facility] [id number] (42318) Result 1 NOCP (Normal) Comments: No ova, cysts, or parasites seen. Ova + Parasite Exam Final report (Normal) Comments: These results were obtained using wet preparation(s) and trichromestained smear. This test does not include testing for Cryptosporidiumparvum, Cyclospora, or Microsporidia. :37 SETH CULTURE-STOOL (81315) Comments: PATIENT NOT FASTINGPERFORMED BY: [employer] Chyfgj9381 [facility] [id number] Information: SRC:ST SRC:ST E coli Shiga Toxin EIA Negative (Normal) Result 1 NCI (Normal) Comments: No Campylobacter species isolated. Campylobacter Culture Final report (Normal) Result 1 NSS (Normal) Comments: No Salmonella or Shigella recovered. Salmonella/Shigella Screen Final report (Normal) :06 Renal function Panel Comments: fax copy to Dr. Santana [phone]; A courtesy copy of this report has been sent [phone].PATIENT NOT FASTINGPERFORMED BY: [facility] Jbdyuy3225 [facility] [id number] Information: NURSE DRAW (90048) Albumin 3.5 g/dL (Normal) Range: 3.5-4.8 Phosphorus [...] copy of this report has been sent [phone].PATIENT NOT FASTINGPERFORMED BY: [employer] Fgfzyp5568 [facility] [id number] :02 Range: 15-65 Vitamin D, 25-Hydroxy 34.7 ng/mL (Normal) Comments: A courtesy copy of this report has been sent [phone].PATIENT NOT FASTINGPERFORMED BY: [employer] Nycxuc8468 [facility] [id number] :02 Range: 30.0-100.0 Comments: Vitamin D deficiency has been defined by the [place] of[place]icine and an Endocrine Society practice guideline as alevel of serum 25-OH vitamin D less than 20 ng/mL (1,2).The Endocrine Society went on to further define vitamin Dinsufficiency as a level between 21 and 29 ng/mL (2).1. IOM ([place] of Medicine). 2010. Dietary reference intakes for calcium and D. [place]: The National Academies Press.2. Mira MF, Rosette NC, Tommy SWAIN, et al. Evaluation, treatment, and prevention of vitamin D deficiency: an Endocrine Society clinical practice guideline. JCEM. 2010; 96(7):1911-30. 5-Wry-720242:02 MICROALBUMIN: CREATININE RATIO Comments: send results to Dr. Santana fax: [phone]; A courtesy copy of this report has been sent [phone].PATIENT NOT FASTINGPERFORMED BY: [employer] Vcfozi0781 [address] [facility] [id number] (75598) AND (90707) Alb/Creat Ratio 4191.2 {mg/g_creat} (Abnormal) Range: 0.0-30.0 Albumin, Urine 2380.6 ug/mL (Normal) Comments: Results confirmed ondilution. Creatinine, Urine 56.8 mg/dL (Normal) :02 CBC, PLATELETS & MANUAL Comments: send results to Dr. Santana fax: [phone]; A courtesy copy of this report has been sent [phone].PATIENT NOT FASTINGPERFORMED BY: [employer] Xsuqhr5731 [facility] [id number] Information: VIT D25, PTH DIFF (83962) Immature Grans (Abs) 0.0 {x10E3/uL} (Normal) Range: [...] 3.77-5.28 WBC 5.4 {x10E3/uL} (Normal) Range: 3.4-10.8 5-Wfs-209421:02 MAGNESIUM (93297) Comments: send results to Dr. Santana fax: [phone]; A courtesy copy of this report has been sent [phone].PATIENT NOT FASTINGPERFORMED BY: LabCoMarlton Rehabilitation HospitalLnmjwv1615 [facility] [id number] Magnesium, Serum 1.8 mg/dL (Normal) Range: 1.6-2.3 4-Oau-982497:02 RENAL FUNCTION PANEL (89742) Comments: send results to Dr. Santana fax: [phone]; A courtesy copy of this report has been sent [phone].PATIENT NOT FASTINGPERFORMED BY: [employer] Ocymlb6879 [facility] [id number] Albumin, Serum 3.7 g/dL (Normal) Range: 3.5-4.8 [...] Glucose, Serum 119 mg/dL (Abnormal) Range: 65-99 9-Iyc-214055:07 LIPID PANEL (32091) Comments: PATIENT WAS FASTINGPERFORMED BY: AltspaceVRMarlton Rehabilitation HospitalJsdyjf0229 [facility] [id number] LDL/HDL Ratio 1.4 {ratio} (Normal) Range: 0.0-3.2 Comments: LDL/HDL Ratio Men Women 1/2 Avg.Risk 1.0 1.5 Av g.Risk 3.6 3.2 2X Avg.Risk 6.2 5.0 3X Avg.Risk 8.0 6.1 LDL Cholesterol Calc 102 mg/dL (Abnormal) Range: 0-99 VLDL Cholesterol Cesar 17 mg/dL (Normal) Range: 5-40 HDL Cholesterol 75 mg/dL (Normal) Triglycerides 84 mg/dL (Normal) Range: 0-149 Cholesterol, Total 194 mg/dL (Normal) Range: 100-199 7-Zol-254476:07 CBC W/AUTO DIFF WBC (00885) Comments: PATIENT WAS FASTINGPERFORMED BY: LabCoMarlton Rehabilitation HospitalVjewij3896 [facility] [id number] Immature Grans (Abs) 0.0 {x10E3/uL} (Normal) Range: [...] 3.77-5.28 WBC 4.8 {x10E3/uL} (Normal) Range: 3.4-10.8 1-Mvn-123982:07 METABOLIC PANEL, COMPREHENSIVE Comments: PATIENT WAS FASTINGPERFORMED BY: LabCoMarlton Rehabilitation HospitalUwpjja7229 [facility] [id number] (71208) ALT (SGPT) 14 [iU]/L (Normal) Range: 0-32 [...] 8-27 Glucose 158 mg/dL (Abnormal) Range: 65-99 2-Saj-990174:07 VITAMIN B-12 (CYANOCOBALAMIN) Comments: PATIENT WAS FASTINGPERFORMED BY: [facility] Vvdujd1808 [facility] [id number] (09329) Vitamin B12 771 pg/mL (Normal) Range: 232-1245 13-May-20170:00 CDIFF (Molecular) Comments: [facility] [address] [place], [place], [address] CDIFF See Note (Normal) Comments: Cdiff-MolecularNormal Reference Range = Negative C. Diff DNA Negative- No toxigenic C. Diff DNA DetectedNAAT METHOD Testing was performed using nucleic acid amplification 05-May-20179:32 Rapid Flu (14688 x 2) Influenza A Ag Negative (Normal) :35 CBC with auto diff (43161) Comments: PATIENT WAS FASTINGPERFORMED BY: AltspaceVRMarlton Rehabilitation HospitalOretev8141 [facility] [id number] Immature Grans (Abs) 0.0 {x10E3/uL} (Normal) Range: [...] PANEL, COMPREHENSIVE Comments: PATIENT WAS FASTINGPERFORMED BY: AltspaceVRMarlton Rehabilitation HospitalPgpeve4460 [facility] [id number] (30771) ALT (SGPT) 16 [iU]/L (Normal) Range: 0-32 [...] Glucose, Serum 145 mg/dL (Abnormal) Range: 65-99 49-Jwg-657014:51 HgA1C , Office (47123) HgA1C , Office 6.7 % (Normal) Range: 4.6 - 7.1 6-Osf-983282:50 CALCIFEDIOL (01734) Comments: A courtesy copy of this report has been sent [phone].PATIENT WAS FASTINGPERFORMED BY: LabAscension River District Hospital6370 [facility] [id number] Vitamin D, 25-Hydroxy 40.7 ng/mL (Normal) Range: 30.0-100.0 Comments: Vitamin D deficiency has been defined by the [place] of[place]icine and an Endocrine Society practice guideline as alevel of serum 25-OH vitamin D less than 20 ng/mL (1,2).The Endocrine Society went on to further define vitamin Dinsufficiency as a level between 21 and 29 ng/mL (2).1. IOM ([place] of Medicine). 2010. Dietary reference intakes for calcium and D. [place]: The National Academies Press.2. Mira MF, Rosette LOPEZ, Tommy SWAIN, et al. Evaluation, treatment, and prevention of vitamin D deficiency: an Endocrine Society clinical practice guideline. JCEM. 2010; 96(7):1911-30. 3-Hzu-055902:50 PTH (PARATHORMONE) (38749) Comments: A courtesy copy of this report has been sent [phone].PATIENT WAS FASTINGPERFORMED BY: BasharJobs [place] [id number] PTH, Intact 20 pg/mL (Normal) Range: 15-65 4-Qhy-922037:50 MICROALBUMIN: CREATININE RATIO Comments: A courtesy copy of this report has been sent [phone].PATIENT WAS FASTINGPERFORMED BY: [employer]70 [employer] [place] [id number] (28316) AND (07406) Microalb/Creat Ratio 4376.0 {mg/g_creat} (Abnormal) Range: 0.0-30.0 Microalbumin, Urine 3369.5 ug/mL (Normal) Comments: Results confirmed ondilution. Creatinine, Urine 77.0 mg/dL (Normal) 9-Dqo-879725:50 Renal function Panel Comments: A courtesy copy of this report has been sent [phone].PATIENT WAS FASTINGPERFORMED BY: [employer]6370 Sorbent TherapeuticsUNC Health Johnston [id number] Information: FX DR. SANTANA [phone] (32667) Albumin, Serum 3.8 g/dL (Normal) Range: 3.5-4.8 [...] Glucose, Serum 203 mg/dL (Abnormal) Range: 65-99 0-Sod-275249:50 Magnesium (71120) Comments: A courtesy copy of this report has been sent [phone].PATIENT WAS FASTINGPERFORMED BY: Ryma Technology SolutionsMarlton Rehabilitation HospitalWihiif2884 [facility] [id number] Magnesium, Serum 1.8 mg/dL (Normal) Range: 1.6-2.3 :53 CBC with auto diff (32975) Comments: A courtesy copy of this report has been sent [phone].PATIENT WAS FASTINGPERFORMED BY: Ryma Technology SolutionsMarlton Rehabilitation HospitalEtkype0167 [facility] [id number] Immature Grans (Abs) 0.0 {x10E3/uL} (Normal) Range: [...] {x10E3/uL} (Normal) Range: 3.4-10.8 :53 LIPID PANEL (65899) Comments: A courtesy copy of this report has been sent [phone].PATIENT WAS FASTINGPERFORMED BY: Ryma Technology SolutionsMarlton Rehabilitation HospitalFcjetb7600 [facility] [id number] LDL/HDL Ratio 1.2 {ratio_units} (Normal) Range: 0.0-3.2 [...] copy of this report has been sent [phone].PATIENT WAS FASTINGPERFORMED BY: Ryma Technology SolutionsMarlton Rehabilitation HospitalItvllh1688 [facility] [id number] (25298) ALT (SGPT) 11 [iU]/L (Normal) Range: 0-32 [...] Glucose, Serum 205 mg/dL (Abnormal) Range: 65-99 81-Ukv-443251:57 HgA1C , Office (21332) HgA1C , Office 7.1 % (Normal) Range: 4.6 - 7.1 :09 LIPID PANEL (59007) Comments: PATIENT WAS FASTINGPERFORMED BY: LabCoMarlton Rehabilitation HospitalTrwqkw9885 [facility] [id number] LDL/HDL Ratio 1.3 {ratio_units} (Normal) Range: 0.0-3.2 [...] Comments: PATIENT WAS FASTINGPERFORMED BY: LabCoMarlton Rehabilitation HospitalQmxyto1927 [facility] [id number] (24232) ALT (SGPT) 12 [iU]/L (Normal) Range: 0-32 [...] Glucose, Serum 152 mg/dL (Abnormal) Range: 65-99 3-Gvv-587929:50 HgA1C , Office (23999) HgA1C , Office 6.7 % (Normal) Range: 4.6 - 7.1 :25 Magnesium, Serum 1.9 mg/dL (Normal) Comments: PATIENT WAS FASTINGPERFORMED BY: LabCoMarlton Rehabilitation HospitalGmdjkw9413 [facility] [id number] Range: 1.6-2.3 :25 Microalb/Creat Ratio, Randm Ur Comments: PATIENT WAS FASTINGPERFORMED BY: [employer] Ojtrpp62[address] RoadDublin [place] [id number] Microalb/Creat Ratio 2652.0 {mg/g_creat} Range: 0.0-30.0 (Abnormal) Microalbumin, Urine 2482.3 ug/mL (Normal) Comments: Results confirmed ondilution. Creatinine, Urine 93.6 mg/dL (Normal) PTH, Intact 26 pg/mL (Normal) Comments: PATIENT WAS FASTINGPERFORMED BY: LabCo Reudsy4290 [address] RoadDublin [place] [id number] :25 Range: 15-65 :25 Renal Panel (10) Comments: PATIENT WAS FASTINGPERFORMED BY: [employer] Vuvzcv6072 [address] RoadDublin [place] [id number] Phosphorus, Serum 4.3 mg/dL (Normal) Range: 2.5-4.5 :25 Thyroxine (T4) Free, Direct, S Comments: PATIENT WAS FASTINGPERFORMED BY: Everest SoftwareMercy Hospital [facility], [facility] Gsotfh3381 [address] RoadDublin [place] [id number] T4,Free(Direct) 1.08 ng/dL (Normal) Range: 0.82-1.77 : TSH 2.980 {uIU/mL} Comments: PATIENT WAS FASTINGPERFORMED BY: [employer] Sadmbn8227 [address] RoadDublin [place] [id number] 25 (Normal) Range: 0.450-4.500 : Vitamin D, 25-Hydroxy 37.1 ng/mL (Normal) Comments: PATIENT WAS FASTINGPERFORMED BY: Lab[facility] Zqeyrg5093 [address] Road[address]ublin [place] [id number] 25 Range: 30.0-100.0 Comments: Vitamin D deficiency has been defined by the [place] of[place]icine and an Endocrine Society practice guideline as alevel of serum 25-OH vitamin D less than 20 ng/mL (1,2).The Endocrine Society went on to further define vitamin Dinsufficiency as a level between 21 and 29 ng/mL (2).1. IOM ([place] of Medicine). 2010. Dietary reference intakes for calcium and D. [place]: The National Academies Press.2. Mira MF, Rosette [place], Tommy SWAIN, et al. Evaluation, treatment, and prevention of vitamin D deficiency: an Endocrine Society clinical practice guideline. JCEM. 2010; 96(7):7421-30. :25 CBC W/AUTO DIFF WBC (27969) Comments: PATIENT WAS FASTINGPERFORMED BY: EVE LabAscension River District Hospital6370 [facility] [id number] Immature Grans (Abs) 0.0 {x10E3/uL} (Normal) Range: [...] PANEL, COMPREHENSIVE Comments: PATIENT WAS FASTINGPERFORMED BY: [employer]6370 [facility] [id number]; non- emergent till apt (44921) ALT (SGPT) 10 [iU]/L (Normal) Range: 0-32 [...] mg/dL (Abnormal) Range: 65-99 03-Aug-20169:25 LIPID PANEL (51231) Comments: PATIENT WAS FASTINGPERFORMED BY: AltspaceVRMarlton Rehabilitation HospitalCzgvde3508 [facility] [id number] LDL/HDL Ratio 0.9 {ratio_units} (Normal) Range: 0.0-3.2 [...] (Normal) Range: 100-199 :54 HgA1C , Office (59447) HgA1C , Office 6.6 % (Normal) Range: 4.6 - 7.1 :1 Magnesium, Serum 2.1 mg/dL (Normal) Comments: PATIENT WAS FASTINGPERFORMED BY: uControlUNC Health Johnston [id number] 2 Range: 1.6-2.3 :12 Microalb/Creat Ratio, Randm Ur Comments: PATIENT WAS FASTINGPERFORMED BY: uControlUNC Health Johnston [id number] Microalb/Creat Ratio 1863.4 {mg/g_creat} (Abnormal) Range: 0.0-30.0 Microalbumin, Urine 1416.2 ug/mL (Normal) Comments: Results confirmed ondilution. Creatinine, Urine 76.0 mg/dL (Normal) :12 Microscopic Examination Comments: PATIENT WAS FASTINGPERFORMED BY: [employer]6370 Sorbent Therapeuticsin [place] [id number] Bacteria None seen (Normal) Mucus Threads Present (Normal) Cast Type Hyaline casts (Normal) Casts Present {/lpf} (Abnormal) Epithelial Cells (non 0-10 {/hpf} Range: 0 - 10 renal) (Normal) RBC 3-10 {/hpf} Range: 0 - 2 (Abnormal) WBC 6-10 {/hpf} Range: 0 - 5 (Abnormal) PTH, Intact 36 pg/mL (Normal) Comments: PATIENT WAS FASTINGPERFORMED BY: uControlin [place] [id number] 0:12 Range: 15-65 Vitamin D, 25-Hydroxy 42.9 ng/mL (Normal) Comments: PATIENT WAS FASTINGPERFORMED BY: [employer]6370 [facility] [id number] 0:12 Range: 30.0-100.0 Comments: Vitamin D deficiency has been defined by the [place] of[place]icine and an Endocrine Society practice guideline as alevel of serum 25-OH vitamin D less than 20 ng/mL (1,2).The Endocrine Society went on to further define vitamin Dinsufficiency as a level between 21 and 29 ng/mL (2).1. IOM ([place] of Medicine). 2010. Dietary reference intakes for calcium and D. [place]: The National AcademVericept Press.2. Mira MF, Rosette [place], Tommy SWAIN, et al. Evaluation, treatment, and prevention of vitamin D deficiency: an Endocrine Society clinical practice guideline. JCEM. 2010; 96(7):1911-30. 53-Gye-791236:12 URINALYSIS, W/ MICRO (84055) Comments: PATIENT WAS FASTINGPERFORMED BY: [employer] [facility] HospitalCanal InternetUNC Health Johnston [id number] Microscopic Examination See below: (Normal) Comments: Microscopic was indicated and was performed. Nitrite, Urine Negative (Normal) Urobilinogen,Semi-Qn 0.2 mg/dL (Normal) Range: 0.2-1.0 Bilirubin Negative (Normal) Occult Blood Negative (Normal) Ketones Negative (Normal) Glucose Negative (Normal) Protein 4+ (Abnormal) WBC Esterase Trace (Abnormal) Appearance Clear (Normal) Urine-Color Yellow (Normal) pH 6.0 (Normal) Range: 5.0-7.5 Specific [place] 1.015 (Normal) Range: 1.005-1.030 94-Stb-399127:12 CBC W/AUTO DIFF WBC (27820) Comments: PATIENT WAS FASTINGPERFORMED BY: [employer] Lmshvc0413 [facility] [id number] Immature Grans (Abs) 0.0 {x10E3/uL} (Normal) Range: [...] 3.77-5.28 WBC 6.2 {x10E3/uL} (Normal) Range: 3.4-10.8 87-Abt-407666:12 METABOLIC PANEL, COMPREHENSIVE Comments: PATIENT WAS FASTINGPERFORMED BY: LabCoMarlton Rehabilitation HospitalBzciwh7651 [facility] [id number] (47285) ALT (SGPT) 14 [iU]/L (Normal) Range: 0-32 [...] Glucose, Serum 154 mg/dL (Abnormal) Range: 65-99 11-Tdq-503690:12 LIPID PANEL (14358) Comments: PATIENT WAS FASTINGPERFORMED BY: [employer] [facility] [id number] LDL/HDL Ratio 0.7 {ratio_units} (Normal) Range: 0.0-3.2 Comments: LDL/HDL Ratio Men Women 1/2 Avg.Risk 1.0 1.5 Av g.Risk 3.6 3.2 2X Avg.Risk 6.2 5.0 3X Avg.Risk 8.0 6.1 LDL Cholesterol Calc 49 mg/dL (Normal) Range: 0-99 VLDL Cholesterol Cesar 14 mg/dL (Normal) Range: 5-40 HDL Cholesterol 75 mg/dL (Normal) Triglycerides 68 mg/dL (Normal) Range: 0-149 Cholesterol, Total 138 mg/dL (Normal) Range: 100-199 23-Jod-878013:50 HgA1C , Office (84928) HgA1C , Office 6.7 % (Normal) Range: 4.6 - 7.1 27-Stg-184552:36 VITAMIN B-12 (CYANOCOBALAMIN) Comments: PATIENT WAS FASTINGPERFORMED BY: [employer] [facility] [id number] (49378) Vitamin B12 802 pg/mL (Normal) Range: 211-946 37-Vnb-750202:36 LIPID PANEL (82188) Comments: PATIENT WAS FASTINGPERFORMED BY: LabCoMarlton Rehabilitation HospitalAfsrsa8907 [facility] [id number] LDL/HDL Ratio 0.8 {ratio_units} (Normal) Range: 0.0-3.2 [...] Cholesterol, Total 161 mg/dL (Normal) Range: 100-199 75-Dmb-563647:36 LDH (LD) (LACTATE DEHYDROGENASE) Comments: PATIENT WAS FASTINGPERFORMED BY: AltspaceVRMarlton Rehabilitation HospitalPxtqmo2553 [facility] [id number] (49141) LDH 217 [iU]/L (Normal) Range: 119-226 20-Ftg-365440:36 CBC W/AUTO DIFF WBC (63695) Comments: PATIENT WAS FASTINGPERFORMED BY: AltspaceVRMarlton Rehabilitation HospitalZzmlge1215 [facility] [id number] Immature Grans (Abs) 0.0 {x10E3/uL} (Normal) Range: [...] 3.77-5.28 WBC 10.6 {x10E3/uL} (Normal) Range: 3.4-10.8 92-Wot-906004:36 METABOLIC PANEL, COMPREHENSIVE Comments: PATIENT WAS FASTINGPERFORMED BY: LabCoMarlton Rehabilitation HospitalKooyiy3592 [facility] [id number] (74666) ALT (SGPT) 15 [iU]/L (Normal) Range: 0-32 [...] Glucose, Serum 137 mg/dL (Abnormal) Range: 65-99 30-Wxv-640777:36 TSH (57200) Comments: PATIENT WAS FASTINGPERFORMED BY: [employer]6370 [facility] [id number] TSH 0.560 {uIU/mL} (Normal) Range: 0.450-4.500 :02 Renal function Panel (64933) Comments: PATIENT WAS FASTINGPERFORMED BY: [employer]6370 [facility] [id number] Albumin, Serum 3.7 g/dL (Normal) Range: 3.5-4.8 [...] 137 mg/dL (Abnormal) Range: 65-99 :02 MAGNESIUM (51468) Comments: PATIENT WAS FASTINGPERFORMED BY: Everest SoftwareAscension River District Hospital6370 [facility] [id number] Magnesium, Serum 2.2 mg/dL (Normal) Range: 1.6-2.3 :02 MICROALBUMIN: CREATININE RATIO Comments: PATIENT WAS FASTINGPERFORMED BY: LabAscension River District Hospital6370 [facility] [id number] (76419) AND (01737) Microalb/Creat Ratio 2038.7 {mg/g_creat} (Abnormal) Range: 0.0-30.0 Microalbumin, Urine 1223.2 ug/mL (Normal) Comments: Results confirmed ondilution. Creatinine, Urine 60.0 mg/dL (Normal) :02 CBC WITH MANUAL DIFF Comments: PATIENT WAS FASTINGPERFORMED BY: LabCompassoftMarlton Rehabilitation HospitalVuormr1910 [facility] [id number] Information: [id number] (57376) Immature Grans (Abs) 0.0 {x10E3/uL} (Normal) Range: [...] {x10E3/uL} (Normal) Range: 3.4-10.8 :02 HGB A1C (99941) Comments: PATIENT WAS FASTINGPERFORMED BY: [employer] Uhlsee6197 [facility] [id number] Hemoglobin A1c 6.4 % (Abnormal) Range: 4.8-5.6 Comments: . Pre-diabetes: 5.7 - 6.4 Diabetes: >6.4 Glycemic control for adults with diabetes: <7.0 :02 Lipid Panel (34762) Comments: PATIENT WAS FASTINGPERFORMED BY: Delight70 [facility] [id number] LDL/HDL Ratio 1.1 {ratio_units} (Normal) Range: 0.0-3.2 [...] Cholesterol, Total 160 mg/dL (Normal) Range: 100-199 69-Zwj-828030:03 HgA1C , Office (95066) HgA1C , Office 6.1 % (Normal) Range: 4.6 - 7.1 :24 CBC W/AUTO DIFF WBC Comments: PATIENT WAS FASTINGPERFORMED BY: Everest SoftwareCoMarlton Rehabilitation HospitalFjbznl0451 [facility] [id number] Information: [id number] (81786) Immature Grans (Abs) 0.0 {x10E3/uL} (Normal) Range: [...] CREATININE RATIO Comments: PATIENT WAS FASTINGPERFORMED BY: LabCoMarlton Rehabilitation HospitalFsgepa1235 [facility] [id number] (36519) AND (62406) Microalb/Creat Ratio 1223.8 {mg/g_creat} (Abnormal) Range: 0.0-30.0 Microalbumin, Urine 1012.1 ug/mL (Abnormal) Range: 0.0-17.0 Comments: Results confirmed ondilution. Creatinine, Urine 82.7 mg/dL (Normal) Range: 15.0-278.0 :24 METABOLIC PANEL, COMPREHENSIVE Comments: PATIENT WAS FASTINGPERFORMED BY: [employer] [facility] [id number] (61991) ALT (SGPT) 12 [iU]/L (Normal) Range: 0-32 [...] mg/dL (Abnormal) Range: 65-99 :24 LIPID PANEL (93544) Comments: PATIENT WAS FASTINGPERFORMED BY: Telecardiaox RoadDublin [place] [id number] LDL/HDL Ratio 1.1 {ratio_units} (Normal) Range: 0.0-3.2 [...] Cholesterol, Total 150 mg/dL (Normal) Range: 100-199 06-Rcr-05076:30 CBC W/Diff, Automated Comments: [facility] [address] [place], [place], [address] Absolute Lymph 0.83 {X10_3/ul} (Normal) Range: 0.83-4.51 [...] (Normal) Range: 4.4-11.0 :30 Hemoglobin A1c Comments: [facility] [address] [place], [place], [address] HGB A1C 6.1 % (Normal) Range: 4.2-6.3 :30 Magnesium Comments: [facility] [address]th[address]uxym[address] [place], [place], [address] MG 1.8 mg/dL (Normal) Range: 1.8-2.4 :30 Protein+Creatinine Ratio,Urine Comments: [facility] [address] [place], [place], [address] PROT:CRE RATIO 2121 {mg/g_CRE} (Abnormal) Range: 0-200 PROTEIN,UR.RAN. 164.2 mg/dL (Abnormal) UR CREAT 77.40 mg/dL (Normal) :30 Renal Profile Comments: [address] [place], [place], [address] CO2 27.0 mmol/L (Normal) Range: 21.0-32.0 CL [...] 126 mg/dLsuggests DIABETES MELLITUS per A.D.A. criteria. 67-Qfm-02947:00 24 HR UR Creatinine Clearance Comments: [facility] [address] [place], [place], [address] CREAT CLEARANCE 24 ml/min (Abnormal) Range: 100-200 URINE CREAT 20.6 mg/dL (Normal) EST GFR - AA 38 mL/min (Abnormal) Comments: GFR Calc EST GFR 31 mL/min (Abnormal) Comments: Non- GFR Calc SERUM CREAT 1.7 mg/dL (Abnormal) Range: 0.6-1.0 UR TOTAL VOLUME 2800 mL (Normal) UR COLLECT TIME 24.0 {HOURS} (Normal) 89-Cab-16206:00 Protein, Urine 24HR Comments: [facility] [address]ambs[address] [place], [place], [address] 24hr UR PROTEIN 1178.8 {mg/24HR} (Abnormal) URINE PROTEIN 42.1 mg/dL (Abnormal) UR TOTAL VOLUME 2800 mL (Normal) UR COLLECT TIME 24.0 {HOURS} (Normal) 5-Qhx-057073:29 Metabolic Panel, Basic Comments: PATIENT NOT FASTINGPERFORMED BY: LabCoMarlton Rehabilitation HospitalDfhzjd8274 [facility] [id number] Information: [id number] (24391) Calcium, Serum 9.3 mg/dL (Normal) Range: 8.7-10.3 [...] Basic Comments: tuesday; PATIENT NOT FASTINGPERFORMED BY: LabCompassoftMarlton Rehabilitation HospitalBcfrup5244 [facility] [id number] Information: [id number] (53934) Calcium, Serum 9.0 mg/dL (Normal) Range: 8.7-10.3 [...] Glucose, Serum 149 mg/dL (Abnormal) Range: 65-99 15-Dco-705571:32 HgA1C , Office (49152) HgA1C , Office 6.2 % (Normal) Range: 4.6 - 7.1 :31 Rapid Strep Test, Office (35129) Comments: neg Rapid Strep Test, Office Negative (Normal) :06 THROAT CULTURE (59999) Comments: PATIENT NOT FASTINGPERFORMED BY: LabCoMarlton Rehabilitation HospitalXqjsiq9514 [facility] [id number] Information: [id number] Result 1 RRF (Normal) Comments: Routine respiratory luis Upper Respiratory Culture Final report (Normal) :52 TSH (76473) Comments: PATIENT WAS FASTINGPERFORMED BY: LabCo Ylyvej5149 [facility] [id number] TSH 2.190 {uIU/mL} (Normal) Range: 0.450-4.500 :52 Vitamin D Hydroxy (39008) Comments: PATIENT WAS FASTINGPERFORMED BY: [facility] Neznpc7349 [facility] [id number] Vitamin D, 25-Hydroxy 43.8 ng/mL (Normal) Range: 30.0-100.0 Comments: Vitamin D deficiency has been defined by the [place] of[place]icine and an Endocrine Society practice guideline as alevel of serum 25-OH vitamin D less than 20 ng/mL (1,2).The Endocrine Society went on to further define vitamin Dinsufficiency as a level between 21 and 29 ng/mL (2).1. IOM ([place] of Medicine). 2010. Dietary reference intakes for calcium and D. [place]: The National Academies Press.2. Mira MF, Rosette LOPEZ, Tommy SWAIN, et al. Evaluation, treatment, and prevention of vitamin D deficiency: an Endocrine Society clinical practice guideline. JCEM. 2010; 96(7):1911-30. :52 LIPID PANEL (74918) Comments: PATIENT WAS FASTINGPERFORMED BY: LabCoMarlton Rehabilitation HospitalPbjujs1254 [facility] [id number] LDL/HDL Ratio 1.3 {ratio_units} (Normal) Range: 0.0-3.2 [...] auto diff Comments: PATIENT WAS FASTINGPERFORMED BY: [facility]6370 [facility] [id number] Information: [id number] (46330) Immature Grans (Abs) 0.0 {x10E3/uL} (Normal) Range: [...] PANEL, COMPREHENSIVE Comments: PATIENT WAS FASTINGPERFORMED BY: [facility]6370 [facility] [id number] (03174) ALT (SGPT) 19 [iU]/L (Normal) Range: 0-32 [...] Glucose, Serum 127 mg/dL (Abnormal) Range: 65-99 0-Axj-366274:08 HgA1C , Office (91030) HgA1C , Office 6.4 % (Normal) Range: 4.6 - 7.1 1-Cpw-830590:00 Creatinine Clearance Comments: PATIENT NOT FASTINGPERFORMED BY: [facility]CoM[facility] HospitalFvpoqa2711 [facility] [id number] Information: [id number] S TART Creatinine Clearance 33 mL/min (Abnormal) Range: 88-128 Comments: The above range is based on 1.73 square meter average body surfacearea. Creatinine, Ur 24hr 642.0 {mg/24_hr} (Abnormal) Range: 800.0-1800.0 Creatinine, Urine 34.7 mg/dL (Normal) Range: 15.0-278.0 eGFR If Africn Am 43 mL/min/1.73 (Abnormal) eGFR If NonAfricn Am 37 mL/min/1.73 (Abnormal) Creatinine, Serum 1.37 mg/dL (Abnormal) Range: 0.57-1.00 4-Gbl-583689:00 Protein Total, Qn, 24-Hr Comments: PATIENT NOT FASTINGPERFORMED BY: [facility] Gsihui3101 [facility] [id number] Urine Prot,24hr calculated 1309.8 {mg/24_hr} (Abnormal) Range: 30.0-150.0 Protein,Total,Urine 70.8 mg/dL (Abnormal) Range: 0.0-15.0 09-Oct-20149:01 CBC W/Diff, Automated Comments: Test performed at:[facility] [address] [place] [address] Absolute Neut 3.1 {X10_3/uL} (Normal) [...] Range: 4.4-11.0 :01 Magnesium Comments: Test performed at:[facility] [address] [place] [address] 32378 MG 2.0 mg/dL (Normal) Range: 1.8-2.4 :01 Protein+Creatinine Ratio,Urine Comments: Test performed at:[facility] [address] [place] [address] 61230 PROT:CRE RATIO 2232 {mg/g_CRE} (Abnormal) Range: 0-200 PROTEIN,UR.RAN. 160.3 mg/dL (Abnormal) UR CREAT 71.8 mg/dL (Normal) :01 Renal Profile Comments: Test performed at:[facility] [address] [place] [address] 442131 CO2 32.0 mmol/L (Normal) Range: 21.0-32.0 CL [...] mg/dL (Normal) Range: 70-110 :08 LIPID PANEL (81990) Comments: PATIENT WAS FASTINGPERFORMED BY: [facility]Co[facility] HospitalJrfjmo9544 [facility] [id number] LDL/HDL Ratio 1.0 {ratio_units} (Normal) Range: 0.0-3.2 [...] Cholesterol, Total 149 mg/dL (Normal) Range: 100-199 55-Dvn-89612:08 METABOLIC PANEL, Comments: PATIENT WAS FASTINGPERFORMED BY: [facility]Co[facility] HospitalMudjzg0955 [facility] [id number] Information: [id number] COMPREHENSIVE (46919) ALT (SGPT) 29 [iU]/L (Normal) Range: 0-32 [...] (Abnormal) Range: 65-99 :59 HgA1C , Office (50962) HgA1C , Office 6.5 % (Normal) Range: 4.6 - 7.1 :54 CBC W/AUTO DIFF WBC Comments: PATIENT WAS FASTINGPERFORMED BY: [facility]CoM[facility] HospitalWpiace9033 [facility] [id number] Information: [id number] (79076) Immature Grans (Abs) 0.0 {x10E3/uL} (Normal) Range: [...] PANEL, COMPREHENSIVE Comments: PATIENT WAS FASTINGPERFORMED BY: TRUE linkswear70 [facility] [id number]; non- emergent till apt (45369) ALT (SGPT) 13 [iU]/L (Normal) Range: 0-32 [...] mg/dL (Abnormal) Range: 65-99 :54 LIPID PANEL (78594) Comments: PATIENT WAS FASTINGPERFORMED BY: Drizly6370 [facility] [id number] LDL/HDL Ratio 1.1 {ratio_units} (Normal) Range: 0.0-3.2 [...] (Normal) Range: 100-199 :29 HgA1C , Office (18847) HgA1C , Office 6.6 % (Normal) Range: 4.6 - 7.1 :12 CBC W/Diff, Automated Comments: Test performed at:[facility] [address], [place] [address] ; handled by Dr. Santana Absolute Lymph [...] Range: 4.4-11.0 :12 Magnesium Comments: Test performed at:[facility] [address] [place] [address] MG 2.0 mg/dL (Normal) Range: 1.8-2.4 :12 Microalb:Creat Ratio,Random UR Comments: Test performed at:[facility] [address] [place] [address] ; Dr. Angelo LING:CREAT 1483.0 {mg/g_CRE} (Abnormal) MICROALBUMIN,UR 918.0 mg/L (Normal) UR CREAT 61.9 mg/dL (Normal) :12 Renal Profile Comments: Test performed at:[facility] [address] [place] [address] CO2 29.0 mmol/L (Normal) Range: 21.0-32.0 CL [...] 126 mg/dLsuggests DIABETES MELLITUS per A.D.A. criteria. 60-Bir-550311:20 LIPID PANEL (64771) Comments: PATIENT WAS FASTINGPERFORMED BY: AltspaceVRMarlton Rehabilitation HospitalCbqjez0254 [facility] [id number] LDL/HDL Ratio 1.0 {ratio_units} (Normal) Range: 0.0-3.2 [...] Cholesterol, Total 151 mg/dL (Normal) Range: 100-199 17-Ywm-167915:20 METABOLIC PANEL, Comments: PATIENT WAS FASTINGPERFORMED BY: AltspaceVRMarlton Rehabilitation HospitalVhwbkn4641 [facility] [id number] Information: [id number] COMPREHENSIVE (52170) ALT (SGPT) 16 [iU]/L (Normal) Range: 0-32 [...] Glucose, Serum 148 mg/dL (Abnormal) Range: 65-99 00-Iwt-321797:21 CREATININE CLEARANCE Comments: PATIENT WAS FASTINGPERFORMED BY: AltspaceVRMarlton Rehabilitation HospitalVczwbo1868 [facility] [id number] Information: [id number] START 04/02/14@9AM FINISH 04/03/14 6:00 AM (80805) Creatinine Clearance 42 mL/min (Abnormal) Range: 88-128 Comments: The above range is based on 1.73 square meter average body surfacearea. Creatinine, Ur 24hr 812.3 {mg/24_hr} (Normal) Range: 800.0-1800.0 Creatinine, Urine 28.5 mg/dL (Normal) Range: 15.0-278.0 eGFR If Africn Am 45 mL/min/1.73 (Abnormal) eGFR If NonAfricn Am 39 mL/min/1.73 (Abnormal) Creatinine, Serum 1.33 mg/dL (Abnormal) Range: 0.57-1.00 91-Qci-851483:21 Total Protein,24 Hour Urine Comments: PATIENT WAS FASTINGPERFORMED BY: AltspaceVRMarlton Rehabilitation HospitalHfbnri6396 [facility] [id number] (84285) Prot,24hr calculated 1559.0 {mg/24_hr} (Abnormal) Range: 30.0-150.0 Protein,Total,Urine 54.7 mg/dL (Abnormal) Range: 0.0-15.0 :57 LIPID PANEL (28934) Comments: PATIENT WAS FASTINGPERFORMED BY: [employer]VR Yrxbmd6556 [facility] [id number] LDL/HDL Ratio 1.1 {ratio_units} (Normal) Range: 0.0-3.2 [...] Comments: PATIENT WAS FASTINGPERFORMED BY: [facility]Co[facility] HospitalKnllwe2100 [facility] [id number] Information: [id number] (42938) Immature Grans (Abs) 0.0 {x10E3/uL} (Normal) Range: [...] COMPREHENSIVE Comments: PATIENT WAS FASTINGPERFORMED BY: [facility]Asc[facility] Hospital6370 [facility] [id number] (58233) ALT (SGPT) 10 [iU]/L (Normal) Range: 0-32 [...] Units: mg/dL AdultPerformed at: CB - [facility] Udqwek5968 [place], [place] [address]Udp Director: Yousuf Bernardo PhD, Phone: [phone] :[phone] C4 37 (Abnormal) Range: 9-36 0 [...] 75.6 mg/dL (Abnormal) CREU 49.3 mg/dL (Normal) 30-Qfk-00215:21 CBC WITH MANUAL DIFF Comments: PATIENT WAS FASTINGPERFORMED BY: [facility]CoM[facility] HospitalGdzifi7096 [facility] [id number] Information: [id number] (80357) Immature Grans (Abs) 0.0 {x10E3/uL} (Normal) Range: [...] 3.77-5.28 WBC 4.5 {x10E3/uL} (Normal) Range: 3.4-10.8 05-Zml-75626:21 METABOLIC PANEL, COMPREHENSIVE Comments: PATIENT WAS FASTINGPERFORMED BY: [facility]CoM[facility] HospitalWvgttn0134 [facility] [id number] (41140) ALT (SGPT) 16 [iU]/L (Normal) Range: 0-32 [...] Glucose, Serum 132 mg/dL (Abnormal) Range: 65-99 36-Yfa-350190:53 CREATININE CLEARANCE Comments: PATIENT NOT FASTINGPERFORMED BY: [employer] Bjbffd4760 [facility] [id number] Information: [id number] START 10/30/13@8AM F INISH 10/31/13@8AM 2650ML (79253) Creatinine Clearance 44 mL/min (Abnormal) Range: 88-128 [...] Hour Urine Comments: PATIENT NOT FASTINGPERFORMED BY: Ryma Technology SolutionsMarlton Rehabilitation HospitalZdxbnj8181 [facility] [id number] (92957) Prot,24hr calculated 3458.3 {mg/24_hr} (Abnormal) Range: 30.0-150.0 Protein,Total,Urine 130.5 mg/dL (Abnormal) Range: 0.0-15.0 15-Gil-641835:31 HgA1C , Office (78674) HgA1C , Office 6.4 % (Normal) Range: 4.6 - 7.1 11-Dxk-381223:27 Microscopic Examination Comments: PATIENT WAS FASTINGPERFORMED BY: AltspaceVRDr. Dan C. Trigg Memorial HospitalTlwdft7280 [facility] [id number] Bacteria Few (Normal) Mucus Threads Present (Normal) Epithelial Cells (non renal) 0-10 {/hpf} (Normal) Range: 0 - 10 RBC 3-10 {/hpf} (Abnormal) Range: 0 - 2 WBC 6-10 {/hpf} (Abnormal) Range: 0 - 5 :32 LIPID PANEL (45431) Comments: PATIENT WAS FASTINGPERFORMED BY: AltspaceVRDr. Dan C. Trigg Memorial HospitalOaqspf1170 [facility] [id number] LDL/HDL Ratio 1.0 {ratio_units} (Normal) Range: 0.0-3.2 [...] CREATININE RATIO Comments: PATIENT WAS FASTINGPERFORMED BY: AltspaceVRMarlton Rehabilitation HospitalGqphso5636 [facility] [id number] (96103) AND (20674) Microalb/Creat Ratio 1998.9 {mg/g_creat} (Abnormal) Range: 0.0-30.0 Creatinine, Urine 73.4 mg/dL (Normal) Range: 15.0-278.0 Microalbumin, Urine 1467.2 ug/mL (Abnormal) Range: 0.0-17.0 :32 URINALYSIS, W/ MICRO (03887) Comments: PATIENT WAS FASTINGPERFORMED BY: Everest SoftwareAscension River District Hospital6370 [facility] [id number] Microscopic Examination See below: (Normal) Comments: Microscopic was indicated and was performed. Nitrite, Urine Negative (Normal) Urobilinogen,Semi-Qn 0.2 mg/dL (Normal) Range: 0.0-1.9 Bilirubin Negative (Normal) Occult Blood Trace (Abnormal) Ketones Negative (Normal) Glucose Negative (Normal) Protein 3+ (Abnormal) WBC Esterase Trace (Abnormal) Appearance Clear (Normal) Urine-Color Yellow (Normal) pH 6.5 (Normal) Range: 5.0-7.5 Specific Melrose 1.015 (Normal) Range: 1.005-1.030 :32 CBC WITH MANUAL DIFF Comments: PATIENT WAS FASTINGPERFORMED BY: LabMark [place]ille 4708170 [facility] [id number] Information: [id number] (78324) Immature Grans (Abs) 0.0 {x10E3/uL} (Normal) Range: [...] PANEL, COMPREHENSIVE Comments: PATIENT WAS FASTINGPERFORMED BY: [facility]6370 [facility] [id number] (32068) ALT (SGPT) 16 [iU]/L (Normal) Range: 0-32 [...] B-12 (CYANOCOBALAMIN) Comments: PATIENT WAS FASTINGPERFORMED BY: LabCoMarl[facility] Rehabilitation HospitalMflnvb3628 [facility] [id number] (79199) Vitamin B12 >1999 pg/mL (Abnormal) Range: 211-946 :01 HgA1C , Office (98903) HgA1C , Office 6.4 % (Normal) Range: 4.6 - 7.1 :37 METABOLIC PANEL, COMPREHENSIVE Comments: PATIENT WAS FASTINGPERFORMED BY: LabCoM[facility] Rehabilitation HospitalRkkvdt2931 [facility] [id number] (22371) ALT (SGPT) 12 [iU]/L (Normal) Range: 0-32 [...] (Abnormal) Range: 65-99 :37 Vitamin D Hydroxy (26221) Comments: PATIENT WAS FASTINGPERFORMED BY: AltspaceVR Mxwbmm8706 [facility] [id number] Vitamin D, 25-Hydroxy 47.4 ng/mL (Normal) Range: 30.0-100.0 Comments: Vitamin D deficiency has been defined by the [place] of[facility] Hospitalcine and an Endocrine Society practice guideline as alevel of serum 25-OH vitamin D less than 20 ng/mL (1,2).The Endocrine Society went on to further define vitamin Dinsufficiency as a level between 21 and 29 ng/mL (2).1. IOM ([place] of Medicine). 2010. Dietary reference intakes for calcium and D. [place]: The National Academies Press.2. Mira MF, Rosette [place], Tommy SWAIN, et al. Evaluation, treatment, and prevention of vitamin D deficiency: an Endocrine Society clinical practice guideline. JCEM. 2010; 96(7):1911-30. :37 LIPID PANEL (08898) Comments: PATIENT WAS FASTINGPERFORMED BY: [employer] Shkjov7581 [facility] [id number] LDL/HDL Ratio 1.2 {ratio_units} (Normal) Range: 0.0-3.2 [...] MANUAL DIFF Comments: PATIENT WAS FASTINGPERFORMED BY: Everest SoftwareAscension River District Hospital6370 [facility] [id number] Information: [id number] (93475) Immature Grans (Abs) 0.0 {x10E3/uL} (Normal) Range: [...] Qn, 24-Hr Comments: PATIENT NOT FASTINGPERFORMED BY: Delight70 [facility] [id number] Information: ADD [id number] AND DRAW FEE 99 6660 VOLUME 2600 164LBS 5' '3 Urine Prot,24hr calculated 920.4 {mg/24_hr} Range: 30.0-150.0 (Abnormal) Protein,Total,Urine 35.4 mg/dL Range: 0.0-15.0 (Abnormal) : Written Authorization WAR (Normal) Comments: PATIENT NOT FASTINGPERFORMED BY: [employer] Uowepp7286 [facility] [id number] Comments: Written Authorization Received.Authorization received from Chiqui BRICEÑO LPN [id number] by Marleen Sharma :52 Metabolic Panel, Basic Comments: PATIENT NOT FASTINGPERFORMED BY: [employer] Lwrogg2401 [facility] [id number] Information: ADD [id number] AND DRAW FEE 99 6660 VOLUME 2600 164LBS 5' '3 (72358) Calcium, Serum 9.7 mg/dL (Normal) Range: 8.6-10.2 [...] mg/dL (Abnormal) Range: 65-99 :52 CREATININE CLEARANCE (44173) Comments: PATIENT NOT FASTINGPERFORMED BY: AltspaceVRMarlton Rehabilitation HospitalHydwde5266 [facility] [id number] Creatinine Clearance 46 mL/min (Abnormal) Range: 88-128 Comments: The above range is based on 1.73 square meter average body surfacearea. Creatinine, Ur 24hr 899.6 {mg/24_hr} (Normal) Range: 800.0-1800.0 Creatinine, Urine 34.6 mg/dL (Normal) Range: 15.0-278.0 :52 24 hour urine for Protein Comments: PATIENT NOT FASTINGPERFORMED BY: AltspaceVRMarlton Rehabilitation HospitalOyalhy9379 [facility] [id number] (79521) Microalb/Creat Ratio 695.4 {mg/g_creat} (Abnormal) Range: 0.0-30.0 Microalbumin, Urine 240.6 ug/mL (Abnormal) Range: 0.0-17.0 :13 HgA1C , Office (81119) HgA1C , Office 6.3 % (Normal) Range: 4.6 - 7.1 8-Qss-147225:01 Blood Glucose , Office (92721) Blood Glucose , Office 162 (Normal) 10-Ofx-321719:02 Microscopic Examination Comments: PATIENT NOT FASTINGPERFORMED BY: [facility] Gznaeg9739 [facility] [id number] Bacteria Few (Normal) Mucus Threads Present (Normal) [...] Hebert M.D.October 19, 2012 at 2:42:14 PM [id number] Signed GP/GP If you are the referring physician and would like to consult [facility] theradiologist who provided this interpretation, please contact Yasmany Pond at [phone]. If this radiologist is unavailable, youwill be directed to another radiologist to assist. If y ou are a patient with a question regarding this report, pleasecontactyour referring physician directly. Professional Interpretation Provided By: [employer], Phone , These documents contain legally protected [...] Sign by: Misael Hebert MD :59 TSH (95957) Comments: PATIENT WAS FASTINGPERFORMED BY: [facility]6370 [facility] [id number] TSH 1.230 {uIU/mL} (Normal) Range: 0.450-4.500 :59 LIPID PANEL (04028) Comments: PATIENT WAS FASTINGPERFORMED BY: [address] [id number] LDL/HDL Ratio 0.5 {ratio_units} (Normal) Range: 0.0-3.2 LDL Cholesterol Calc 47 mg/dL (Normal) Range: 0-99 Cholesterol, Total 149 mg/dL (Normal) Range: 100-199 HDL Cholesterol 91 mg/dL (Normal) Comments: According to ATP-III Guidelines, HDL-C >59 mg/dL is considered anegative risk factor for CHD. Triglycerides 57 mg/dL (Normal) Range: 0-149 VLDL Cholesterol Cesar 11 mg/dL (Normal) Range: 5-40 17-Ufu-844452:02 URINALYSIS, W/ MICRO Comments: PATIENT NOT FASTINGPERFORMED BY: [address] [id number] Information: [id number] (92611) Microscopic Examination See below: (Normal) Nitrite, Urine Negative (Normal) Bilirubin Negative (Normal) Urobilinogen,Semi-Qn 0.2 mg/dL (Normal) Range: 0.0-1.9 Occult Blood Negative (Normal) Ketones Negative (Normal) Glucose Negative (Normal) Protein 3+ (Abnormal) WBC Esterase Negative (Normal) Appearance Clear (Normal) Urine-Color Yellow (Normal) pH 5.5 (Normal) Range: 5.0-7.5 Specific Melrose 1.015 (Normal) Range: 1.005-1.030 :59 CBC WITH MANUAL DIFF Comments: PATIENT WAS FASTINGPERFORMED BY: [place] [id number] [facility] [id number] Information: [id number] (46517) Immature Grans (Abs) 0.0 {x10E3/uL} (Normal) Range: [...] 3.77-5.28 WBC 4.8 {x10E3/uL} (Normal) Range: 3.4-10.8 54-Fsj-704932:59 METABOLIC PANEL, COMPREHENSIVE Comments: PATIENT WAS FASTINGPERFORMED BY: LabCoMarl[facility] Rehabilitation HospitalDevalr1238 [facility] [id number] (45195) ALT (SGPT) 14 [iU]/L (Normal) Range: 0-32 [...] Glucose, Serum 104 mg/dL (Abnormal) Range: 65-99 3-Yew-659413:37 HgA1C , Office (39265) HgA1C , Office 6.0 % (Normal) Range: 4.6 - 7.1 6-Qeq-772173:31 CRE CREAT 1.3 mg/dL (Abnormal) Range: 0.6-1.0 8-May-48027:00 BRAIN W/WO CONTRAST Radiology Report See Note [...] Galan M.D.August 09, 2012 at 2:38:03 PM [id number] Signed PV/PV If you are the referring physician and would like to consult with theradiologist who provided this interpretation, please contact Donna Burnett M.D. at [phone]. If this radiologist is unavailable, youwillbe directed [...] 08/09/12 1441 Sign by: Donna Martin MD 14-Wqa-320495:31 CBC with manual diff Comments: PATIENT NOT FASTINGPERFORMED BY: [facility]CoM[facility] HospitalGschln9087 [facility] [id number] Information: [id number] (29914) Immature Grans (Abs) 0.0 {x10E3/uL} (Normal) Range: [...] 3.77-5.28 WBC 3.2 {x10E3/uL} (Abnormal) Range: 4.0-10.5 69-Iao-012991:31 Metabolic Panel, Comprehensive Comments: PATIENT NOT FASTINGPERFORMED BY: [facility]CoM[facility] HospitalJogcag0028 [facility] [id number] (07287) ALT (SGPT) 19 [iU]/L (Normal) Range: 0-32 [...] mg/dL (Abnormal) Range: 65-99 :31 LIPID PANEL (36764) Comments: PATIENT WAS FASTINGPERFORMED BY: AltspaceVRMarlton Rehabilitation HospitalCuzaqj1334 [facility] [id number] LDL/HDL Ratio 0.8 {ratio_units} (Normal) Range: 0.0-3.2 [...] MANUAL DIFF Comments: PATIENT WAS FASTINGPERFORMED BY: LabCompassoftMarlton Rehabilitation HospitalUvweqm9751 [facility] [id number] Information: [id number] (03191) Immature Grans (Abs) 0.0 {x10E3/uL} (Normal) Range: [...] Comments: PATIENT WAS FASTINGPERFORMED BY: [facility]CoM[facility] HospitalDfelav4595 [facility] [id number] (93284) ALT (SGPT) 22 [iU]/L (Normal) Range: 0-32 [...] (Abnormal) Range: 65-99 :45 HgA1C , Office (75097) HgA1C , Office 6.1 % (Normal) Range: 4.6 - 7.1 13-Mwd-645299:16 CRE CREAT 1.1 mg/dL (Abnormal) Range: 0.6-1.0 63-Cou-01784:00 BRAIN W/WO CONTRAST Radiology Report See Note [...] Galan M.D.February 02, 2012 at 5:10:18 PM [id number] Signed PV/PV If you are the referring physician and w sarahild like to consult with theradiologist who provided this interpretation, please contact Donna Burnett M.D. at [phone]. If this radiologist is unavailable, youwillbe directed to another radiol ogist to assist. If you are a patient with a question regarding this report, pleasecontactyour referring physician directly. Professional Interpretation Provided By: [employer], Phone ,Fa x [phone] These documents contain legally protected and confidential [...] 1714 S ign by: Donna Martin MD 64-Njn-837971:16 DEXA BONE DENSITY STUDY (HP) Radiology Report [...] Coronel M.D.January 20, 2012 at 2:43:46 PM [id number] Signed KERA/KERA If you ar e the [...] on 01/20/121446 Sign by: David Coronel MD 37-Wwi-229490:15 BILAT SCRN DIGITAL & CAD Radiology Report [...] Coronel M.D.January 20, 2012 at 1:20:11 PM [id number] Signed KERA/KERA If you are the referring physician and would like to consult with theradiologist who provided this interpretation, please contact Yasmany Parnell at . If this radiologist is unavailable,youwill be directed to another radiologist to assist. If you are a patient with a question regarding this report, pleasecontactyour referring physician directly. Professional Interpretation Provided By: [employer], Phone , These documents contain legally protected [...] 01/20/12 1324 Sign by: David Coronel MD 5-Mpv-139165:56 PELVIC (NON ) Radiology Report See Note [...] Vuong M.D.January 10, 2012 at 8:39:09 PM [id number] Signed JL/JOHNNY If you are the referring physician and would like to consult with theradiologist who provided this inte rpretation, please contact Radha Vuong M.D. at [phone]. If this radiologist is unavailable, you will bedirected to another radiologist to assist. If you are a patient with a question regarding this r eport, pleasecontactyour referring physician directly. Professional Interpretation Provided By: [employer], Phone , PROCEDURE: ULTRASOUND OF THE FEMALE [...] Vuong M.D.January 10, 2012 at 8:40:07 PM [id number] Signed JL/JL If you are the referring physician and would like to consult with theradiologist who provided this interpretation, please contact Radha Vuong M.D. at [phone]. If this radiologist is unavailable, you will bedirected to another radiologist to assist. If you are a patient with a question regarding this report, pleasecontactyour referring ysician directly. Professional Interpretation Provided By: [employer], Phone , These documents contain legally protected [...] Dictated on 01/10/12 1309 by TATIANA VUONG MDChristianaCare on 01/11/12 1113 by ITS IMPORTSign by RADHA VUONG MD on 01/11/12 1114 Sign by: RADHA VUONG MD :35 MICROALBUMIN: CREATININE RATIO Comments: PATIENT WAS FASTINGPERFORMED BY: AltspaceVRMarlton Rehabilitation HospitalNvdmzi5964 [facility] [id number] (65640) AND (25837) Microalb/Creat Ratio 829.4 {mg/g_creat} (Abnormal) Range: 0.0-30.0 Microalbumin, Urine 437.1 ug/mL (Abnormal) Range: 0.0-17.0 Creatinine, Urine 52.7 mg/dL (Normal) Range: 15.0-278.0 :35 CBC WITH MANUAL DIFF Comments: PATIENT WAS FASTINGPERFORMED BY: [facility] [employer] [facility] Uayhnf4761 [facility] [id number] Information: [id number] (55710) Immature Grans (Abs) 0.0 {x10E3/uL} (Normal) Range: [...] Comments: PATIENT WAS FASTINGPERFORMED BY: LabCoMarlton Rehabilitation HospitalQnjvqm3539 [facility] [id number] (22933) ALT (SGPT) 15 [iU]/L (Normal) Range: 0-32 [...] mg/dL (Abnormal) Range: 65-99 :35 LIPID PANEL (19776) Comments: PATIENT WAS FASTINGPERFORMED BY: AltspaceVRMarlton Rehabilitation HospitalHnsfum8251 [facility] [id number] LDL/HDL Ratio 0.9 {ratio_units} (Normal) Range: 0.0-3.2 LDL Cholesterol Calc 72 mg/dL (Normal) Range: 0-99 HDL Cholesterol 83 mg/dL (Normal) Comments: According to ATP-III Guidelines, HDL-C >59 mg/dL is considered anegative risk factor for CHD. VLDL Cholesterol Cesar 18 mg/dL (Normal) Range: 5-40 Triglycerides 90 mg/dL (Normal) Range: 0-149 Cholesterol, Total 173 mg/dL (Normal) Range: 100-199 :15 HgA1C , Office (66452) HgA1C , Office 6.2 % (Normal) Range: 4.6 - 7.1 :30 CBC WITH MANUAL DIFF Comments: PATIENT WAS FASTINGPERFORMED BY: LabCoMarl[facility] Rehabilitation HospitalGewytl8320 [facility] [id number] Information: [id number] (79614) Immature Grans (Abs) 0.0 {x10E3/uL} (Normal) Range: [...] 3.77-5.28 WBC 4.2 {x10E3/uL} (Normal) Range: 4.0-10.5 56-Iwf-37292:30 METABOLIC PANEL, COMPREHENSIVE Comments: PATIENT WAS FASTINGPERFORMED BY: LabCo Tcurmy7679 [facility] [id number] (96701) ALT (SGPT) 19 [iU]/L (Normal) Range: 0-40 [...] mg/dL (Abnormal) Range: 65-99 :30 LIPID PANEL (36862) Comments: PATIENT WAS FASTINGPERFORMED BY: LabCoMarlton Rehabilitation HospitalMiwmdb8869 [facility] [id number] LDL/HDL Ratio 0.9 {ratio_units} (Normal) Range: 0.0-3.2 [...] note reference interval change :48 Rapid Flu (72802 x 2) Influenza A Ag negative (Normal) [...] redmond M.D.November 05, 2011 at 3:25:08 PM [phone] Signed GP/GP If you are the referring physician and would like to consult with theradiologist who provided this interpretation, please contact Yasmany Pond at [phone]. If this radiologist is unavailable, youwill be directed to another radiologist to assist. If you are a patient with a question regarding this report, ple asecontactyour referring physician directly. Professional Interpretation Provided By: [employer], Phone , These documents contain legally protected [...] redmond M.D.November 05, 2011 at 3:25:08 PM [id number] Signed GP/GP If you are the referring physician and would like to consult with theradiologist who provided this interpretation, please contact Yasmany Pond at [phone]. If this radiologist is unavailable, youwill be directed to another radiologist to assist. If you are a patient with a question regarding this report, ple asecontactyour referring physician directly. Professional Interpretation Provided By: [employer], Phone , These documents contain legally protected [...] 11/05/11 155 Sign by: Misael Hebert MD 21-Grh-579382:20 METABOLIC PANEL, Comments: PATIENT WAS FASTINGPERFORMED BY: [facility]6370 [facility] [id number] Information: Q60141,2ND ORDER NO DRAW F [facility] (27164) ALT (SGPT) 31 [iU]/L (Normal) Range: 0-40 [...] Glucose, Serum 155 mg/dL (Abnormal) Range: 65-99 75-Vmw-72807:49 Creatinine Clearance Comments: PATIENT WAS FASTINGPERFORMED BY: EVE LabCoMarlton Rehabilitation HospitalXxlpty8814 [facility] [id number] Information: 10/30@6AM 10/31@730AM Creatinine Clearance 58 mL/min [...] Qn, 24-Hr Comments: PATIENT WAS FASTINGPERFORMED BY: LabCoM[facility] HospitalCooxbx1066 [facility] [id number] Urine Prot,24hr calculated 1023.8 {mg/24_hr} (Abnormal) Range: 30.0-150.0 Protein,Total,Urine 52.5 mg/dL (Abnormal) Range: 0.0-15.0 :04 HgA1C , Office (09702) HgA1C , Office 6.1 % (Normal) Range: [...] regarding this repor t, please call our [id number] line @ Dictated on 07/27/11 1040 by GAYE PEREZ MD RTranscribed on 07/28/11 1225 by ITS IMPORTSign by GAYE PEREZ MD on 07/28/11 1225 Sign by: GAYE PEREZ MD 08-Xrn-55005:54 Vitamin D Hydroxy (12797) Comments: PATIENT WAS FASTINGPERFORMED BY: LabCoMarl[facility] HospitalSwxyqs0984 [facility] [id number] Vitamin D, 25-Hydroxy 48.8 ng/mL (Normal) Range: 30.0-100.0 Comments: Vitamin D deficiency has been defined by the [place] of[place]icine and an Endocrine Society practice guideline as alevel of serum 25-OH vitamin D less than 20 ng/mL (1,2).The Endocrine Society went on to further define vitamin Dinsufficiency as a level between 21 and 29 ng/mL (2).1. IOM ([place] of Medicine). 2010. Dietary reference intakes for calcium and D. [place]: The National Academies Press.2. Mira MF, Rosette [place], Tommy SWAIN, et al. Evaluation, treatment, and prevention of vitamin D deficiency: an Endocrine Society clinical practice guideline. JCEM. 2010; 96(7):1911-30. :54 LIPID PANEL (11764) Comments: PATIENT WAS FASTINGPERFORMED BY: Delight70 [facility] [id number] LDL/HDL Ratio 1.0 {ratio_units} (Normal) Range: 0.0-3.2 [...] MANUAL DIFF Comments: PATIENT WAS FASTINGPERFORMED BY: Drug Response Dx LabCoBon-PrivéLtkrcp6501 [facility] [id number] Information: ADD [id number] AND DRAW FEE 99 6531 (92987) Immature Grans (Abs) 0.0 {x10E3/uL} (Normal) Range: [...] 3.77-5.28 WBC 4.3 {x10E3/uL} (Normal) Range: 4.0-10.5 58-Kux-49648:54 METABOLIC PANEL, COMPREHENSIVE Comments: PATIENT WAS FASTINGPERFORMED BY: LabCoMarl[facility] Rehabilitation HospitalOulbsz9322 [facility] [id number] (57409) ALT (SGPT) 48 [iU]/L (Abnormal) Range: 0-40 [...] (Abnormal) Range: 65-99 :18 HgA1C , Office (26752) HgA1C , Office 6.1 % (Normal) Range: 4.6 - 7.1 :18 Blood Glucose , Office (72757) Blood Glucose , Office 103 (Normal) 51-Wis-68862:00 ABDOMEN WITH AND W/O CONTRAST Radiology Report [...] radiologist regarding this report, please call our 79V0glnjlxk line @ Dictated on 03/18/11 1715 by Keaton MANN,NadieTranscribed on 03/22/11 1401 by ITS IMPORTSign by Jeanette Hill MD on 03/22/11 140 Sign by: Jeanette Pugh MD 82-Xvm-414481:29 SERUM CRE & GFR CREAT,SERUM 1.1 mg/dL (Abnormal) Range: 0.6-1.0 35-Ini-92362:00 BRAIN W/WO CONTRAST Radiology Report See Note [...] 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 The [...] 03/02/11 173 Sign by: Donna Martin MD 33-Bgp-65172:00 UPPER EXT. JOINT ONLY(ROUTINE) Radiology Report See [...] on 01/29/111715 Sign by: Aakash Barbosa MD 05-Wtg-49546:44 ABDOMEN/PELVIS WITH CONTRAST Radiology Report See Note [...] 02/01/11 1021 Sign by: ALEJANDRO DRUMMOND DO 61-Ijz-762298:57 SINUS/FACIAL BONE Radiology Report See Note (Normal) [...] 01/19/11 1448 Sign by: Misael Hebert MD 78-Qzv-78628:00 BRAIN W/WO CONTRAST Radiology Report See Note [...] addition, there is a small region of njcehzpgiR3erngqwysrh along the anterior margin of the mass, [...] on 01/19/2011 16:48:58 (ET). Dictated on 01/19/11 9243 by GAYE PLUMMER MD RTranscribed on 01/19/111649 by ITS IMPORTSign by GAYE PEREZ MD on 01/19/111650 Sign by: CHRIS MANNGAYE Alen 22-Wnc-06385:00 BRAIN/HEAD W/WO CONTRAST Radiology Report See Note [...] 01/19/11 1447 Sign by: Misael Hebert MD 82-Ttk-923403:08 BILAT SCRN DIGITAL & CAD Radiology Report [...] CREATININE RATIO Comments: PATIENT NOT FASTINGPERFORMED BY: Delight70 S[facility] TherapeuticsUNC Health Johnston [id number] (68578) AND (05902) Microalb/Creat Ratio 1028.4 {mg/g_creat} (Abnormal) Range: 0.0-30.0 Microalbumin, Urine 1341.0 ug/mL (Abnormal) Range: 0.0-17.0 Creatinine, Urine 130.4 mg/dL (Normal) Range: 15.0-278.0 :20 CBC WITH MANUAL DIFF (12367) Comments: PATIENT NOT FASTINGPERFORMED BY: [employer]6370 S[facility] TherapeuticsUNC Health Johnston [id number] Immature Grans (Abs) 0.0 {x10E3/uL} (Normal) Range: [...] {x10E3/uL} (Normal) Range: 4.0-10.5 09-Jun-20119:20 LIPID PANEL (59132) Comments: PATIENT NOT FASTINGPERFORMED BY: LabCoMarl[facility] Rehabilitation HospitalBlidhh7665 [facility] [id number] LDL/HDL Ratio 0.9 {ratio_units} (Normal) Range: 0.0-3.2 [...] Comments: PATIENT NOT FASTINGPERFORMED BY: LabCoMarl[facility] Rehabilitation HospitalPlofsh6530 [facility] [id number] (81844) ALT (SGPT) 28 [iU]/L (Normal) Range: 0-40 [...] (Abnormal) Range: 65-99 :39 HgA1C , Office (95639) HgA1C , Office 6.5 % (Normal) Range: 4.6 - 7.1 :39 Blood Glucose , Office (67292) Blood Glucose , Office 128 (Normal) :19 CBC With Differential/Platelet Comments: PATIENT WAS FASTINGPERFORMED BY: EVE AltspaceVRMarlton Rehabilitation HospitalJqbwgc8053 [facility] [id number] Immature Grans (Abs) 0.0 {x10E3/uL} (Normal) Range: [...] Panel (14) Comments: PATIENT WAS FASTINGPERFORMED BY: AltspaceVRMarlton Rehabilitation HospitalTojccr4222 [facility] [id number]; appt 01/11/11 ALT (SGPT) 18 [iU]/L (Normal) [...] Glucose, Serum 113 mg/dL (Abnormal) Range: 65-99 7-Ukr-021759:19 Lipid Panel With LDL/HDL Comments: PATIENT WAS FASTINGPERFORMED BY: LabCoMarlton Rehabilitation HospitalHosckz5382 [facility] [id number] Ratio LDL/HDL Ratio 1.0 {ratio_units} Range: 0.0-3.2 [...] 0.800 {uIU/mL} Comments: PATIENT WAS FASTINGPERFORMED BY: Delight70 [facility] [id number] 2:19 (Normal) Range: 0.450-4.500 Vitamin D, 25-Hydroxy 44.0 ng/mL (Normal) Comments: PATIENT WAS FASTINGPERFORMED BY: [employer] [facility] [id number] 2:19 Range: 32.0-100.0 Comments: Effective February 22, 2011 Vitamin D, 25-Hydroxy reference intervals will be changing to 30-100. .Recent studies consider the lower li sandra of 32.0 ng/mL to be athreshold for optimal health.Otf HAYES. J Nutr. 2004;135(2):317-22. :54 HgA1C , Office (83649) HgA1C , Office 6.6 % (Normal) Range: 4.6 - 7.1 :54 Blood Glucose , Office (26570) Blood Glucose , Office 134 (Normal) :40 Creatinine Clearance Comments: PERFORMED BY: [employer] Docwst3715 [facility] [id number] Information: 10/07@7AM 10/08@3AM Creatinine Clearance 56 mL/min [...] Protein Total, Qn, 24-Hr Comments: PERFORMED BY: BasharJobs [place] [id number] Urine Prot,24hr calculated 610.5 {mg/24_hr} (Abnormal) Range: 30.0-150.0 Protein,Total,Urine 40.7 mg/dL (Abnormal) Range: 0.0-15.0 :46 Vitamin D Hydroxy (24040) Comments: PATIENT WAS FASTINGPERFORMED BY: [employer]6370 Sorbent Therapeuticsblin [place] [id number] Vitamin D, 25-Hydroxy 36.5 ng/mL (Normal) Range: 32.0-100.0 Comments: Recent studies consider the lower limit of 32.0 ng/mL to be athreshold for optimal health.Otf HAYES. J Nutr. 2004;135(2):317-22. :46 METABOLIC PANEL, COMPREHENSIVE Comments: PATIENT WAS FASTINGPERFORMED BY: [employer]6370 Sorbent Therapeuticsblin [place] [id number] (59816) ALT (SGPT) 34 [iU]/L (Normal) Range: 0-40 [...] mg/dL (Abnormal) Range: 65-99 :46 LIPID PANEL (71333) Comments: PATIENT WAS FASTINGPERFORMED BY: uControlUNC Health Johnston [id number] LDL Cholesterol Calc 85 mg/dL (Normal) Range: [...] MANUAL DIFF Comments: PATIENT WAS FASTINGPERFORMED BY: [employer]6370 [employer] [facility] HospitalCanal InternetUNC Health Johnston [id number] Information: [id number]; appt 10/12/10 (26760) Immature Grans (Abs) 0.0 {x10E3/uL} (Normal) Range: [...] 3.80-5.10 WBC 5.5 {x10E3/uL} (Normal) Range: 4.0-10.5 1-Kqq-878879:07 HgA1C , Office (11434) HgA1C , Office 6.6 % (Normal) Range: 4.6 - 7.1 :07 Blood Glucose , Office (77639) Blood Glucose , Office 114 (Normal) 51-Not-339981:00 Creatinine Clearance Comments: PERFORMED BY: [facility]6370 [facility] [id number] Information: 12/31@8AM 01/01@4AM Creatinine Clearance 48 mL/min [...] Creatinine, Serum 1.20 mg/dL (Abnormal) Range: 0.57-1.00 56-Ksx-703840:00 Protein Total, Qn, 24-Hr Comments: PERFORMED BY: LabCoMarlton Rehabilitation HospitalNgzbui0416 [facility] [id number] Urine Prot,24hr calculated 1070.6 {mg/24_hr} (Abnormal) Range: 30.0-150.0 Protein,Total,Urine 79.3 mg/dL (Abnormal) Range: 0.0-15.0 39-Prt-478488:48 BILAT SCRN DIGITAL & CAD Radiology Report See Note (Normal) Comments: Exam Number: [id number] MAMMOGRAPHY - BILATERAL SCREENING INDICATION:Routine annual screening [...] of attaching a ResultCode to this exam.ADDENDUM: [id number] HPBI/MDS Reported By: ANUPMISAEL 31-Hcf-739256:48 DEXA BONE DENSITY STUDY (HP) Radiology Report See Note (Normal) Comments: Exam Number: [id number] CLINICAL:This is a 69-year-old female patient with postmenopausal screening. EXAMINATION:DUAL ENERGY X-RAY ABSORPTIOMETRY / DEXA. TECHNIQUE:Bone Density Measurements (BMD) of lumb ar spine and bilateral hipswere obtained using a Zelosport scanner.. COMPARISON:None. FINDINGS: Lumbar Spine (L1-L4): g/cm2 [...] Osteoporosis Foundation http://www.nof.org Reported By: MISAEL HEBERT 56-Uef-016303:29 HgA1C , Office (40931) HgA1C , Office 6.5 % (Normal) Range: 4.6 - 7.1 05-Bfe-101388:29 Blood Glucose , Office (31096) Blood Glucose , Office 109 (Normal) :05 CBC With Differential/Platelet Comments: PATIENT WAS FASTINGPERFORMED BY: LabCoMarl[facility] Rehabilitation HospitalXlnndj7495 [facility] [id number] Immature Grans (Abs) 0.0 {x10E3/uL} (Normal) Range: [...] (14) Comments: PATIENT WAS FASTINGPERFORMED BY: [facility] Tvgxsq4293 [facility] [id number] ALT (SGPT) 20 [iU]/L (Normal) Range: 0-40 [...] With LDL/HDL Comments: PATIENT WAS FASTINGPERFORMED BY: [employer]spaceVR Dmtnsr7217 [facility] [id number] Ratio HDL Cholesterol 54 mg/dL (Normal) Comments: [...] ng/mL (Normal) Comments: PATIENT WAS FASTINGPERFORMED BY: Drizly6370 [facility] [id number] :05 Range: 32.0-100.0 Comments: Recent studies consider the lower limit of 32.0 ng/mL to be athreshold for optimal health.Otf HAYES. J Nutr. 2004;135(2):317-22. 79-Ejg-00753:41 SPLEEN (HP) Radiology Report See Note (Normal) Comments: Exam Number: [id number] ULTRASOUND OF THE SPLEEN A goal directed [...] Protein, 0.5 mg/L (Normal) Comments: PERFORMED BY: [employer] Gtmbec5259 [facility] [id number] 10:54 Quant Range: 0.0-4.9 17-Jun-2009 Hemoglobin A1c 6.3 % (Abnormal) Comments: PERFORMED BY: Drizly6370 [facility] [id number] 10:54 Range: 4.8-5.6 Comments: Increased risk for diabetes: 5.7 - 6.4Diabetes: >6.4Glycemic control for adults with diabetes: <7.0.Please note reference interval change 17-Jun-2009 Sedimentation 4 mm/h (Normal) Comments: PERFORMED BY: Drizly6370 BRD MotorcyclesOnslow Memorial Hospitalin [place] [id number] 10:54 Rate-Westergren Range: 0-30 17-Jun-2009 Vitamin B12 1372 pg/mL Comments: PERFORMED BY: TRUE linkswear70 [place] [id number] 10:54 (Abnormal) Range: 211-911 Comments: Effective July 14, 2009, Vitamin B12 will bechanging to the [place] ECLIA methodology. Thereference interval will be changing to:211 - 946 pg/mL 17-Jun-2009 Vitamin D, 25-Hydroxy 37.7 ng/mL Comments: PERFORMED BY: TRUE [employer]70 [facility] [id number] 10:54 (Normal) Range: 32.0-100.0 Comments: Recent studies consider the lower limit of 32.0 ng/mL to be athreshold for optimal health.Otf HAYES. J Nutr. 2004;135(2):317-22. 06-Hme-588952:34 Vitamin D Hydroxy Comments: PATIENT NOT FASTINGPERFORMED BY: [employer]6370 [facility] [id number] Information: A29615,2ND ORDER NO DRAW F EE (11092) Vitamin D, 25-Hydroxy 48.5 ng/mL (Normal) Range: 30.0-100.0 Comments: Vitamin D deficiency has been defined by the [place] of[place]icine and an Endocrine Society practice guideline as alevel of serum 25-OH vitamin D less than 20 ng/mL (1,2).The Endocrine Society went on to further define vitamin Dinsufficiency as a level between 21 and 29 ng/mL (2).1. IOM ([place] of Medicine). 2010. Dietary reference intakes for calcium and D. [place]: The National Academies Press.2. Mira MF, Rosette LOPEZ, Tommy SWAIN, et al. Evaluation, treatment, and prevention of vitamin D deficiency: an Endocrine Society clinical practice guideline. JCEM. 2010; 96(7):1911-30. :50 HgA1C , Office (13952) HgA1C , Office 6.7 % (Normal) Range: 4.6 - 7.1 :50 Blood Glucose , Office (95366) Blood Glucose , Office 117 (Normal) :12 CBC With Differential/Platelet Comments: PERFORMED BY: [facility]Asc[facility] Hospital6370 [facility] [id number] Information: 06/10@6AM3/10@330 Hematology Comments: Note: (Normal) Comments: [...] 3.80-5.10 WBC 3.6 {x10E3/uL} (Abnormal) Range: 4.0-10.5 67-Fwm-609014:12 Comp. Metabolic Panel (14) Comments: PERFORMED BY: [facility] Zcsjqz4499 [facility] [id number] Alkaline Phosphatase, S 68 [iU]/L (Normal) Range: [...] Glucose, Serum 124 mg/dL (Abnormal) Range: 65-99 61-Txj-138436:12 Creatinine Clearance Comments: PERFORMED BY: [employer] Snzzzr7741 [facility] [id number] Creatinine Clearance 49 mL/min (Abnormal) Range: 88-128 Comments: The above range is based on 1.73 square meter average body surfacearea. Creatinine, Ur 24hr 800.0 {mg/24_hr} (Normal) Range: 800.0-1800.0 Creatinine, Urine 40.0 mg/dL (Normal) Range: 15.0-278.0 21-Jzo-249713:12 Lipid Panel With LDL/HDL Comments: PERFORMED BY: Alt[employer] [facility] [id number] Ratio HDL Cholesterol 61 mg/dL (Normal) Comments: According to ATP-III Guidelines, HDL-C >59 mg/dL is considered anegative risk factor for CHD. LDL Cholesterol Calc 74 mg/dL (Normal) Range: 0-99 LDL/HDL Ratio 1.2 {ratio_units} (Normal) Range: 0.0-3.2 VLDL Cholesterol Cesar 17 mg/dL (Normal) Range: 5-40 Cholesterol, Total 152 mg/dL (Normal) Range: 100-199 Triglycerides 87 mg/dL (Normal) Range: 0-149 60-Rsf-693883:12 Protein Total, Qn, 24-Hr Comments: PERFORMED BY: Drizly6370 [facility] [id number] Urine Prot,24hr calculated 1172.0 {mg/24_hr} Range: 30.0-150.0 (Abnormal) Protein,Total,Urine 58.6 mg/dL (Abnormal) Range: 0.0-15.0 TSH 1.280 {uIU/mL} Comments: PERFORMED BY: AltspaceVRMarlton Rehabilitation HospitalQyetrk2764 [facility] [id number] 1:12 (Normal) Range: 0.450-4.500 1-Hpg-412842:58 HgA1C , Office (30448) HgA1C , Office 6.0 % (Normal) Range: 4.6 - 7.1 7-Uze-833141:58 Blood Glucose , Office (53226) Blood Glucose , Office 113 (Normal) :03 CBC With Differential/Platelet Comments: PATIENT WAS FASTINGPERFORMED BY: AltspaceVRMarlton Rehabilitation HospitalMruavu6233 [facility] [id number] Baso (Absolute) 0.0 {x10E3/uL} (Normal) Range: 0.0-0.2 [...] Panel (14) Comments: PATIENT WAS FASTINGPERFORMED BY: AltspaceVRMarlton Rehabilitation HospitalUazuud2754 [facility] [id number] A/G Ratio 2.0 (Normal) Range: 1.1-2.5 Albumin, [...] Glucose, Serum 116 mg/dL (Abnormal) Range: 65-99 3-Yyw-002607:03 Lipid Panel With LDL/HDL Comments: PATIENT WAS FASTINGPERFORMED BY: LabCoMarl[facility] Rehabilitation HospitalKiwhof2513 [facility] [id number] Ratio Cholesterol, Total 167 mg/dL (Normal) Range: [...] ng/mL (Normal) Comments: PATIENT WAS FASTINGPERFORMED BY: LabCoMarl[facility] Rehabilitation HospitalHbgknj6852 [facility] [id number] :03 Range: 32.0-100.0 Comments: Recent studies consider the lower limit of 32.0 ng/mL to be athreshold for optimal health.Otf HAYES. J Nutr. 2004;135(2):317-22. 50-Ewz-976788:32 Urinalysis, Office (04371) UA - BILIRUBIN Negative (Normal) UA - BLOOD Hemolyzed Trace (Normal) UA - GLUCOSE Negative (Normal) UA - KETONES Negative mg/dL (Normal) UA - LEUKOCYTE ESTERASE Negative (Normal) UA - NITRITE Negative (Normal) UA - PH 6.5 (Normal) UA - PROTEIN 300 mg/dL (Normal) UA - SPECIFIC GRAVITY 1.020 (Normal) URINE UROBILINGN JATINDER TIMED 2 mg/dL (Normal) 0-Bdx-306064:19 URINE SETH CULTURE-JATINDER COL Comments: PATIENT NOT FASTINGClinical Information: SRC:UR ADD [id number] PERFORMED BY: [facility] Qgvqup6587 [facility] [id number] COUNT (29669) Result 1 ECV (Normal) Comments: Escherichia coli, [...] report (Normal) Culture,Comprehensiv e 09-Jan-20098:17 Urinalysis, Office (34043) UA - BILIRUBIN Negative (Normal) UA - BLOOD Hemolyzed Large (Normal) UA - GLUCOSE Negative (Normal) UA - KETONES Negative mg/dL (Normal) UA - LEUKOCYTE ESTERASE Moderate (Normal) UA - NITRITE Negative (Normal) UA - PH 7.0 (Normal) UA - PROTEIN 300 mg/dL (Normal) UA - SPECIFIC GRAVITY 1.020 (Normal) URINE UROBILINGN JATINDER TIMED 2 mg/dL (Normal) 1-Bin-465196:05 Comp. Metabolic Panel (14) Comments: PATIENT WAS FASTINGPERFORMED BY: [facility]6370 [facility] [id number] A/G Ratio 1.7 (Normal) Range: 1.1-2.5 Albumin, [...] Panel (7) Comments: PATIENT WAS FASTINGPERFORMED BY: [facility]6370 [facility] [id number] Bilirubin, Direct 0.12 mg/dL (Normal) Range: 0.00-0.40 :05 Lipid Panel With LDL/HDL Comments: PATIENT WAS FASTINGPERFORMED BY: [place] 2311370 [facility] [id number] Ratio Cholesterol, Total 170 mg/dL (Normal) Range: [...] mg/dL (Normal) Comments: PATIENT WAS FASTINGPERFORMED BY: [facility]6370 [facility] [id number] :05 Range: 2.5-4.5 PTH, Intact 19 pg/mL (Normal) Comments: PATIENT WAS FASTINGPERFORMED BY: [facility]6370 [facility] [id number] :05 Range: 15-65 Vitamin D, 25-Hydroxy 38.9 ng/mL (Normal) Comments: PATIENT WAS FASTINGPERFORMED BY: [facility]6370 [facility] [id number] :05 Range: 32.0-100.0 Comments: Recent studies consider the lower limit of 32.0 ng/mL to be athreshold for optimal health.Otf HAYES. J Nutr. 2004;135(2):317-22. 5-Ufi-277154:40 HgA1C , Office (77866) HgA1C , Office 6.0 % (Normal) Range: 4.6 - 7.1 :40 Blood Glucose , Office (82465) Blood Glucose , Office 109 (Normal) :42 CBC With Differential/Platelet Comments: PATIENT WAS FASTINGPERFORMED BY: LabCoMarl[facility] Rehabilitation HospitalJqgsut7603 [facility] [id number] Baso (Absolute) 0.0 {x10E3/uL} (Normal) Range: 0.0-0.2 [...] Comments: PATIENT WAS FASTINGPERFORMED BY: LabCoMarl[facility] Rehabilitation HospitalVsjhmh5734 [facility] [id number] A/G Ratio 1.6 (Normal) Range: 1.1-2.5 Albumin, [...] Sodium, Serum 140 mmol/L (Normal) Range: 135-145 9-Yys-048642:09 FECAL OCCULT HGB ASSAY, QUAL, 1-3 SIMULTANEOUS DETERMINATIONS (58529) FECAL OCCULT HGB ASSAY, QUAL, 1-3 SIMULTANEOU neg (Normal) :42 Microscopic Examination Comments: PATIENT WAS FASTINGPERFORMED BY: LabCoMarlton Rehabilitation HospitalFfgale6142 [facility] [id number] Bacteria None seen (Normal) Cast Type Hyaline casts (Normal) Casts Present {/lpf} (Abnormal) Epithelial Cells (non renal) 0-10 {/hpf} (Normal) Range: 0 - 10 Mucus Threads Present (Normal) RBC 0-3 {/hpf} (Normal) Range: 0 - 3 WBC 0-5 {/hpf} (Normal) Range: 0 - 5 :42 URINALYSIS W/O MICRO (91758) Comments: PATIENT WAS FASTINGPERFORMED BY: uControlUNC Health Johnston [id number] Appearance Clear (Normal) Bilirubin Negative (Normal) Glucose Negative (Normal) Ketones Negative (Normal) Microscopic Examination See below: (Normal) Nitrite, Urine Negative (Normal) Occult Blood Negative (Normal) pH 5.0 (Normal) Range: 5.0-7.5 Protein 1+ (Abnormal) Specific [place] 1.013 (Normal) Range: 1.005-1.030 Urine-Color Yellow (Normal) Urobilinogen,Semi-Qn 0.2 mg/dL (Normal) Range: 0.0-1.9 WBC Esterase 1+ (Abnormal) :42 MICROALBUMIN: CREATININE RATIO Comments: PATIENT WAS FASTINGPERFORMED BY: uControlUNC Health Johnston [id number] (24096) AND (17987) Creatinine, Urine 76.1 mg/dL (Normal) Range: 15.0-278.0 Microalb/Creat Ratio 292.1 {ug/mg_creat} (Abnormal) Range: 0.0-30.0 Microalbumin, Urine 222.3 ug/mL (Abnormal) Range: 0.0-17.0 :42 CBC WITH MANUAL DIFF (80106) Comments: PATIENT WAS FASTINGClinical Information: ADD DRAW FEE [id number] ADD J 90901 PERFORMED BY: [employer] [facility] HospitalCanal InternetUNC Health Johnston [id number] Baso (Absolute) 0.0 {x10E3/uL} (Normal) Range: 0.0-0.2 [...] PANEL, COMPREHENSIVE Comments: PATIENT WAS FASTINGPERFORMED BY: [facility]6370 [facility] [id number] (38203) A/G Ratio 1.8 (Normal) Range: 1.1-2.5 Albumin, [...] Sodium, Serum 141 mmol/L (Normal) Range: 135-145 0-Ucf-814551:23 HgA1C , Office (02578) HgA1C , Office 6.0 % (Normal) Range: 4.6 - 7.1 1-Vum-219345:23 Blood Glucose , Office (62899) Blood Glucose , Office 103 (Normal) 04-Zaj-269598:38 CBC WITH MANUAL DIFF (51291) Comments: PATIENT WAS FASTINGClinical Information: ADD DRAW FEE [id number] ADD J 77675 PERFORMED BY: LabCoMarlton Rehabilitation HospitalXojksg7694 [facility] [id number] Baso (Absolute) 0.0 {x10E3/uL} (Normal) Range: 0.0-0.2 [...] 11.7-15.0 WBC 4.0 {x10E3/uL} (Normal) Range: 4.0-10.5 95-Fag-939479:38 METABOLIC PANEL, COMPREHENSIVE Comments: PATIENT WAS FASTINGPERFORMED BY: LabCoMarl[facility] Rehabilitation HospitalPgqbwr6227 [facility] [id number] (19987) A/G Ratio 1.8 (Normal) Range: 1.1-2.5 Albumin, [...] Sodium, Serum 142 mmol/L (Normal) Range: 135-145 85-Lms-199745:38 HEPATIC FUNCTION PANEL Comments: PATIENT WAS FASTINGPERFORMED BY: LabCoM[facility] Rehabilitation HospitalJwaymp0056 [facility] [id number] (17249) Bilirubin, Direct 0.08 mg/dL (Normal) Range: 0.00-0.40 73-Pgv-869723:38 LIPID PANEL (95076) Comments: PATIENT WAS FASTINGPERFORMED BY: Drug Response Dx LabCoMarlton Rehabilitation HospitalCouhqq2600 [facility] [id number] Cholesterol, Total 200 mg/dL (Abnormal) Range: 100-199 [...] Cholesterol Cesar 18 mg/dL (Normal) Range: 5-40 9-Ljb-761752:36 HgA1C , Office (93183) HgA1C , Office 6.1 % (Normal) Range: 4.6 - 7.1 9-Vxx-362320:36 Blood Glucose , Office (12310) Blood Glucose , Office 98 (Normal) 89-Rmp-234128:33 CBC With Differential/Platelet Comments: PATIENT WAS FASTINGClinical Information: SRC:UR PERFORMED BY: EVE LabCoMarlton Rehabilitation HospitalQakyym7519 [facility] [id number] Baso (Absolute) 0.0 {x10E3/uL} (Normal) Range: 0.0-0.2 [...] 11.7-15.0 WBC 4.8 {x10E3/uL} (Normal) Range: 4.0-10.5 46-Gvm-875154:33 Comp. Metabolic Panel (14) Comments: PATIENT WAS FASTINGPERFORMED BY: LabCoMarlton Rehabilitation HospitalNoxcng4076 [facility] [id number] A/G Ratio 1.6 (Normal) Range: 1.1-2.5 Albumin, [...] Serum 92 mg/dL (Normal) Range: 65-99 If -[place] 57 mL/min/1.73 Comments: Note: Persistent reduction for [...] Sodium, Serum 142 mmol/L (Normal) Range: 135-145 53-Fqc-324972:33 Lipid Panel With LDL/HDL Comments: PATIENT WAS FASTINGPERFORMED BY: LabCo Deumuv2985 [facility] [id number] Ratio Cholesterol, Total 174 mg/dL (Normal) Range: 100-199 HDL Cholesterol 67 mg/dL (Normal) Comments: According to ATP-III Guidelines, HDL-C >59 mg/dL is considered anegative risk factor for CHD. LDL Cholesterol Calc 85 mg/dL (Normal) Range: 0-99 LDL/HDL Ratio 1.3 {ratio_units} (Normal) Range: 0.0-3.2 Triglycerides 110 mg/dL (Normal) Range: 0-149 VLDL Cholesterol Cesar 22 mg/dL (Normal) Range: 5-40 47-Bhb-034774:33 Urine Culture,Comprehensive Comments: PATIENT WAS FASTINGPERFORMED BY: LabAscension [facility] Hospital6370 [facility] [id number] Antimicrobial MIHEAD (Normal) Comments: S = Susceptible; [...] Enterococcus. (Normal) Urine Final report (Normal) Culture,Comprehensive 7-Udt-664002:10 HgA1C , Office (17064) HgA1C , Office 5.9 % (Normal) Range: [...] mL (Normal) URINE CREAT 43.0 mg/dL (Normal) 49-Fto-31518:03 PROU 24HR 24hr UR PROTEIN 430.0 {mg/day} (Abnormal) UR COLLECT TIME 24.0 {HOURS} (Normal) UR TOTAL VOLUME 2150 mL (Normal) URINE PROTEIN 20.0 mg/dL (Abnormal) 51-Qtr-947023:17 Urine Culture,Comprehensive Comments: Clinical Information: SRC:UR PERFORMED BY: AltspaceVR ilabUNC Health [facility] [id number] Result 1 CNSNSS (Normal) Comments: Coagulase negative Staphylococcus species, not Staphylococcussaprophyticus.600 Colonies/mLSusceptibility or resistance of staphylococci to oxacillin predictssusceptibility or resistance to (a) other be ln-jeagrnpmb-dhxjhuliggbgsuvxh such as cloxacillin and dicloxacillin, (b) combinationsof a penicillin and a beta-lactamase inhibitor, and(c) anti- staphylococcal cephalosporins. Routine testing of otherp enicillins, beta-lactam/beta-lactamase inhibitor combinations,cephems, and carbapenems is not advised by the CLSI Standards(C327-M79, 2005). S = Susceptible; I = Intermediate; R = Resistant * P = Positive; N = Negative MICS are expressed in micrograms per mL Antibiotic RSLT#1 RSLT#2 RSLT#3 RSLT#4Ciprofloxacin RGentami kristian SLevofloxacin RNitrofurantoin SOxacillin SPenicillin RRifampin STrimethoprim/Sulfa SVancomycin S Urine Final report Culture,Comprehensi (Normal) ve 1-Cpe-608584:53 Metabolic Panel, Basic (68582) Comments: PATIENT NOT FASTINGClinical Information: ADD DRAW FEE [id number] ADD J 52613 PERFORMED BY: [employer] Mhjiti4837 [place] [facility]Sam[facility] [id number] BUN 39 mg/dL (Abnormal) Range: 5-26 BUN/Creatinine Ratio 33 (Abnormal) Range: 8-27 Calcium, Serum 9.8 mg/dL (Normal) Range: 8.5-10.6 Carbon Dioxide, Total 22 mmol/L (Normal) Range: 20-32 Chloride, Serum 103 mmol/L (Normal) Range: 97-108 Creatinine, Serum 1.20 mg/dL (Abnormal) Range: 0.57-1.00 Glom Filt Rate, Est 45 mL/min/1.73 Range: 60-128 (Abnormal) Glucose, Serum 101 mg/dL (Abnormal) Range: 65-99 If -[place] 55 mL/min/1.73 Range: 60-128 (Abnormal) Comments: Note: Persistent reduction for 3 months or more in an eGFR<60 mL/min/1.73 m2 defines CKD. Patients with eGFR values>/=60 mL/min/1.73 m2 may also have CKD if evidence of persistentproteinuria is present. Additional information may be found [email or web address].org. Potassium, Serum 5.1 mmol/L (Normal) Range: 3.5-5.2 Sodium, Serum 139 mmol/L (Normal) Range: 135-145 :09 HgA1C , Office (52393) HgA1C , Office 6.1 % (Normal) Range: 4.6 - 7.1 :09 Blood Glucose , Office (51421) Blood Glucose , Office 163 (Normal) 08-Yeu-16141:37 SPINE,LUMBAR (ROUTINE) Radiology Report See Note (Normal) Comments: Exam Number: [id number] MRI LUMBAR SPINE CLINICAL STATEMENTLow back pain [...] onboth sides. Reported By: MODESTA COPE M.D. 84-Abz-107452:00 [facility] Report See Note (Normal) Comments: Exam Number: [id number] MAMMOGRAM, BILATERAL SCREENING DIGITAL AND CAD HISTORYRoutine screening. Full field digital images were obtained in mediolateral oblique andcraniocaudal projections. CAD images w ere reviewed. The current study is compared to [facility] of [facility] 02[facility]. A small metal marker is [...] mammograms werealso examined with computer-aided detection software ([employer], [employer], [employer].). Reported By: DONNA OJEDA M.D. 76-Nmp-249701:59 DEXA BONE DENSITY STUDY (HP) Radiology Report See Note (Normal) Comments: Exam Number: [id number] BONE DENSITOMETRY HISTORYPost menopausal. TECHNIQUE Bone densitometry [...] Report See Note (Normal) Comments: Exam Number: [id number] FIVE VIEW LUMBAR SPINE AP, lateral, both [...] Randm Ur Comments: PATIENT NOT FASTINGPERFORMED BY: uControlUNC Health Johnston [id number] Creatinine, Urine 46.8 mg/dL (Normal) Microalb/Creat Ratio 712.8 {ug/mg_creat} (Abnormal) Range: 0.0-30.0 Microalbum.,U,Random 333.6 ug/mL (Abnormal) Range: 0.0-17.0 :13 Creatinine Clearance Comments: PATIENT NOT FASTINGClinical Information: HT-5'4'' WT-184 PERFORMED BY: [facility]Cl[facility] [id number] Creatinine Clearance 40 mL/min (Abnormal) Range: 88-128 Comments: The above range is based on 1.73 square meter average body surfacearea. Creatinine, Serum 1.30 mg/dL (Normal) Range: 0.50-1.50 Creatinine, Ur 24hr 754.8 {mg/24_hr} Range: 800.0-1800.0 (Abnormal) Creatinine, Urine 44.4 mg/dL (Normal) Glom Filt Rate, Est 41 mL/min (Abnormal) Range: 60-128 If -[place] 50 mL/min (Abnormal) Range: 60-128 Comments: Note: Persistent reduction for 3 months or more in an eGFR<60 mL/min/1.73 m2 defines CKD. Patients with eGFR values>/=60 mL/min/1.73 m2 may also have CKD if evidence of persistentproteinuria is present. .Additional information may be found at www.[email or web address]. 05-Sep-20079:13 Protein Total, Qn, 24-Hr Comments: PATIENT NOT FASTINGPERFORMED BY: LabCoMarlton Rehabilitation HospitalLlbqcs2555 [facility] [id number] Urine Protein,Total,Urine 49.0 mg/dL (Abnormal) Range: 0.0-15.0 Prt, 24hr calculated 833.0 {mg/24_hr} (Abnormal) Range: 30.0-150.0 52-Ipy-051324:00 CBCD,SMEAR DIFF CELLS COUNTED 100 (Normal) EOS [...] 47-70 WBC 4.3 K/mm3 (Abnormal) Range: 4.4-11.0 70-Cor-457914:00 COMP METABOLIC A/G 1.4 {RATIO} (Normal) Range: [...] T PROT 6.6 g/dL (Normal) Range: 6.4-8.2 83-Ljo-498533:00 D BILI 0.06 mg/dL (Normal) Range: 0.00-0.30 13-Gba-064571:00 LIPID CHOL 175 mg/dL (Normal) Comments: <200 [...] mg/dL VLDL 12 mg/dL (Normal) Range: 5-40 52-Eer-787931:00 TSH 0.84 {uIU/mL} (Normal) Range: 0.34-4.82 Plan [...] of skin Planned Observations Vitamin D Hydroxy (17153)Indication: Vitamin D deficiency On: 69-Nhd-997232:25 Request URINALYSIS, W/ MICRO (60754)Indication: Chronic kidney disease, stage 3 On: :25 Request LIPID PANEL (68095)Indication: Mixed hyperlipidemia On: :25 Request CBC W/AUTO DIFF WBC (35793)Indication: Chronic kidney disease, stage 3 On: 98-Jwj-482555:25 Request METABOLIC PANEL, COMPREHENSIVE (65036)Indication: Chronic kidney disease, stage 3 On: :25 Request HGB A1C (01269)Indication: Diabetes mellitus type II, controlled On: 09-Bfo-925877:24 Request Parathyroid Hormone-related Peptide (PTH-rP) (79822)Indication: Vitamin D deficiency On: 2-Sak-371284:43 Request Comments: send results to Dr. Santana fax: [phone] VITAMIN D, 1, 25-DIHYDROXY (73900)Indication: Vitamin D deficiency On: 7-Emh-315393:42 Request Comments: send results to Dr. Santana fax: [phone] Clostridium difficile Toxin A+B, EIA (25616)Indication: Chronic diarrhea On: 7-Mza-290978:36 Request Vitamin D Hydroxy (38919)Indication: Osteopenia On: 5-Bve-911233:20 Request CBC W/AUTO DIFF WBC (03454)Indication: Hypertension, benign On: 9-Uul-324759:16 Request CALCIFEDIOL (47997)Indication: Chronic kidney disease, stage 3 On: :04 Request Renal function Panel (32931)Indication: Chronic kidney disease, stage 3 On: :04 Request Magnesium (83363)Indication: Chronic kidney disease, stage 3 On: :04 Request MICROALBUMIN: CREATININE RATIO (36946) AND (75992)Indication: Chronic kidney disease, stage 3 On: 03-Aug-20169:04 Request Parathyroid Hormone-related Peptide (PTH-rP) (64300)Indication: Chronic kidney disease, stage 3 On: :04 Request T4, FREE (THYROXINE) (16571)Indication: Cold feeling On: :31 Request TSH (04131)Indication: Cold feeling On: :31 Request PARATHORMONE (23649)Indication: Chronic kidney disease, stage 3 On: :18 Request Comments: copy to Dr. Santana [phone] CALCIFIDIOL (55793) VIT D 25Indication: Chronic kidney disease, stage 3 On: :16 Request Comments: copy to Dr. Santana [phone] MAGNESIUM (91506)Indication: Chronic kidney disease, stage 3 On: :15 Request Comments: copy to Dr. Santana [phone] PROTEIN/CREAT RATIO, URINE (91537)Indication: Chronic kidney disease, stage 3 On: :15 Request Comments: copy to Dr. Santana [phone] LIPID PANEL (90247)Indication: Mixed hyperlipidemia On: :21 Request CBC with auto diff (17647)Indication: Diabetes mellitus type II, controlled On: 92-Qex-559109:20 Request METABOLIC PANEL, COMPREHENSIVE (51231)Indication: Diabetes mellitus type II, controlled On: 82-Wry-321062:20 Request HGB A1C (20299)Indication: Diabetes mellitus type II, controlled On: 89-Pxo-188490:10 Request Vitamin D Hydroxy (44314)Indication: Osteopenia On: 96-Ofk-335478:08 Request TSH (THYROID STIMULATING HORMONE) (41133)Indication: Depression On: 31-Onr-516666:06 Request LIPID PANEL (00968)Indication: Other and unspecified hyperlipidemia On: 42-Ayt-576431:06 Request CBC with auto diff (58035)Indication: Diabetes mellitus type II, controlled On: 02-Rsb-621918:06 Request METABOLIC PANEL, COMPREHENSIVE (27748)Indication: Diabetes mellitus type II, controlled On: 20-Utj-194240:06 Request CREATININE CLEARANCE (51135)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 On: 0-Dof-212910:38 Request Total Protein,24 Hour Urine (23879)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 On: 1-Nuv-706400:38 Request CBC W/AUTO DIFF WBC (43660)Indication: Diabetes mellitus type II, controlled On: 83-Qgz-470348:11 Request HgA1C , Office (07896)Indication: Diabetes mellitus type II, controlled On: 89-Fdm-213150:23 Request CULTURE, SPUTUM (09889)Indication: Cough On: 60-Fbc-415637:47 Request HEPATIC FUNCTION PANEL (18756)Indication: Elevated LFTs On: 91-Yot-15239:24 Request CREATININE CLEARANCE (80384)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 On: :33 Request 24 hour urine for Protein (26701)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 On: :33 Request CBC WITH MANUAL DIFF (59471)Indication: Diabetes mellitus type II, controlled On: :29 Request METABOLIC PANEL, COMPREHENSIVE (69607)Indication: Diabetes mellitus type II, controlled On: :29 Request LIPID PANEL (04182)Indication: Mixed hyperlipidemia On: :29 Request CREATININE CLEARANCE (45364)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 On: 0-Ccg-225040:45 Request 24 hour urine for Protein (08178)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 On: 8-Vjv-727960:45 Request CREATININE CLEARANCE (71705)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 On: 84-Vcb-354118:57 Request 24 hour urine for Protein (71527)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 On: 30-Abr-950446:57 Request METABOLIC PANEL, COMPREHENSIVE (72413)Indication: Hypertension, benign On: 50-Guw-86969:32 Request LIPID PANEL (90099)Indication: Mixed hyperlipidemia On: 84-Jtq-76240:32 Request C-REACTIVE PROTEIN (80630)Indication: Fatigue On: :24 Request SED RATE ERYTHROCYTE (75000)Indication: Headache On: :24 Request VITAMIN B-12 (CYANOCOBALAMIN) (60141)Indication: Fatigue On: 71-Uam-83275:24 Request LIPID PANEL (23114)Indication: Mixed hyperlipidemia On: :41 Request CBC WITH MANUAL DIFF (77426)Indication: Hypertension, benign On: :41 Request METABOLIC PANEL, COMPREHENSIVE (06418)Indication: Hypertension, benign On: 8-Jqm-815909:41 Request CREATININE CLEARANCE (44975)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 On: 7-Kyt-713975:34 Request 24 hour urine for Protein (73588)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 On: 8-Gfz-510734:34 Request LIPID PANEL (54201)Indication: Mixed hyperlipidemia On: :22 Request HEPATIC FUNCTION PANEL (89632)Indication: Mixed hyperlipidemia On: :22 Request Vitamin D Hydroxy (23559)Indication: Hypercalcemia On: :22 Request PHOSPHORUS (86530)Indication: Hypercalcemia On: : Request PARATHORMONE (01963)Indication: Hypercalcemia On: :22 Request METABOLIC PANEL, COMPREHENSIVE (24395)Indication: Hypercalcemia On: :22 Request CBC WITH MANUAL DIFF (02806)Indication: fsgs On: :58 Request LIPID PANEL (06996)Indication: Mixed hyperlipidemia On: :58 Request METABOLIC PANEL, COMPREHENSIVE (00578)Indication: Hypertension, benign On: :58 Request Blood Glucose , Office (45475)Indication: Diabetes mellitus type II, controlled On: 2-Otm-133125:10 Request TSH (33374)Indication: Diabetes mellitus type II, controlled On: 53-Zyo-265679:51 Request METABOLIC PANEL, COMPREHENSIVE (15860)Indication: Diabetes mellitus type II, controlled On: 54-Xyf-301672:51 Request CBC WITH MANUAL DIFF (90479)Indication: Diabetes mellitus type II, controlled On: 26-Iaz-165263:51 Request MICROALBUMIN: CREATININE RATIO (87546) AND (26357)Indication: Diabetes mellitus type II, controlled On: 28-Taz-707825:51 Request HEPATIC FUNCTION PANEL (06660)Indication: Other and unspecified hyperlipidemia On: 12-Wko-452567:51 Request LIPID PANEL (76593)Indication: Other and unspecified hyperlipidemia On: 89-Xbv-804627:51 Request HgA1C , Office (15044)Indication: Diabetes mellitus type II, controlled On: 73-Usr-478824:37 Request Blood Glucose , Office (72892)Indication: Diabetes mellitus type II, controlled On: 71-Yah-138921:37 Request Planned Encounters Medical; [facility] 3 Month FU - On: 22-Mar-2018 11:00 [facility] Fast DO, Chaparrita A Fast DO, Chaparrita A Planned Procedures DRAIN/INJECT MAJOR JOINT On: 31-Jan-2018 Intent OR BURSA ()By: Comments: Lot#[id number]:0-60-76Kfcsw:intra articular Site given:left knee Given By: Dr. Singh ABN signed Keri Singh MD DRAIN/INJECT MAJOR JOINT On: 24-Jan-2018 Intent OR BURSA ()By: Comments: Lot#[id number]: 2-82-88Dysqh:intra artciular Site given:left knee Given By: Dr. Singh ABN signed Euflexxa Keri Singh MD Echo CompleteBy: Fast DO, On: 16-Dec-2017 Intent Chaparrita A Fast DO, Chaparrita A Flu Vaccine On: 16-Dec-2017 Intent (Quadrivalent) 98881Jo: Comments: Lot: [id number]: 10/01/18Site: L dltd, IMDose prefilled syringegiven by: Jamie reviewed and ABN signed Fast DO, Chaparrita A Fast DO, Chaparrita A Kenalog Injection, 10 mgm On: 03-Oct-2017 Intent (J3301)By: Francisco MANN, Comments: lot: [id number]: 11/20site/route: L knee Keri Alonzo Cartoid DopplerBy: Fast On: 12-Sep-2017 Intent DO, Chaparrita A Fast DO, Comments: november Chaparrita A SCREENING DIGITAL On: 12-Sep-2017 Intent TOMOSYNTHESIS OF BREAST Comments: due november 02 (87565)By: Fast DO, Chaparrita A Fast DO, Chaparrita A Kenalog Injection, 10 mgm On: 06-Jun-2017 Intent (J3301)By: Francisco MANN, Comments: bupivacacine 0.5% [id number] exp 09-20 kenalog 40 mg injected in. [id number] 07-21 Keri Alonzo MRI OF BRAIN WITH AND On: 06-Jun-2017 Intent WITHOUT CONTRAST (41390)By: Fast DO, Chaparrita A Fast DO, Chaparrita A ELECTROCARDIOGRAM, On: 06-Jun-2017 Intent COMPLETE (ECG) (29585)By: Comments: ekg showed normal sinus rhythym, normal axis, no acute st/t wave changes Fast DO, Chaparrita A Fast DO, Chaparrita A INFUSION, NORMAL SALINE On: 10-May-2017 Intent SOLUTION , 1000 CC Comments: 2 liters total (Special Coverage Instructions Apply. See [facility]: 2048) (J7030)By: Fast DO, Chaparrita A Fast DO, Chaparrita A INFUSION, NORMAL SALINE On: 10-May-2017 Intent SOLUTION , 1000 CC Comments: lot:[id number]:IV left anticub dose:1000ml given by:eliazar Araya LPN (Special Coverage Instructions Apply. See [facility]: 2048) (J7030)By: Fast DO, Chaparrita A Fast DO, Chaparrita A Radiology - Chest- PA and On: 05-May-2017 Intent LatBy: Keri Singh MD Aerosol Treatment On: 05-May-2017 Intent (69589)By: Keri Singh MD Radiology - ChestBy: On: 05-May-2017 Intent Keri Singh MD Comments: call wet read DRAIN/INJECT MAJOR JOINT On: 28-Feb-2017 Intent OR BURSA ()By: Comments: 1 cc Kenelog #[id number] cc Marcaine #[id number] Keri Singh MD Kenalog Injection, 10 mgm On: 28-Feb-2017 Intent (J3301)By: Keri Singh MD ELECTROCARDIOGRAM, On: 10-Jan-2017 Intent COMPLETE (ECG) (59736)By: Comments: ekg showed normal sinus rhythym, normal axis, no acute st/t wave changes Fast DO, Chaparrita A Fast DO, Chaparrita A Flu Vaccine On: 27-Dec-2016 Intent (Quadrivalent) 61011Yt: SHONDA Andrade DRAIN/INJECT MAJOR JOINT On: 20-Aug-2016 Intent OR BURSA ()By: Keri Singh MD DRAIN/INJECT MAJOR JOINT On: 13-Aug-2016 Intent OR BURSA ()By: Comments: lot: [id number]:[id number]:intra articular dose:2ml given by:Dr. Francisco Araya LPN injection #3 SHONDA Andrade DOPPLER ULTRASOUND OF On: 10-Aug-2016 Intent RIGHT CAROTID ARTERY Comments: end october (95276)By: Fast DO, Chaparrita A Fast DO, Chaparrita A DEXA SCAN AXIAL SKELETON On: 10-Aug-2016 Intent (40248)By: Fast DO, Chaparrita Comments: end october A Fast DO, Chaparrita A SCREENING DIGITAL On: 10-Aug-2016 Intent TOMOSYNTHESIS OF BREAST Comments: end october (36123)By: Fast DO, Chaparrita A Fast DO, Chaparrita A DRAIN/INJECT MAJOR JOINT On: 06-Aug-2016 Intent OR BURSA ()By: Keri Singh MD DRAIN/INJECT INTERMED On: 06-Aug-2016 Intent JOINT/BURSA ()By: Comments: lot:[id number]:8-26-0251hun:left knee dose:2mlgiven by:Dr. Singh ABN signedER, ENGINE MECHANIC injection number 2 SHONDA Andrade Venous Doppler - LeftBy: On: 03-Aug-2016 Intent Fast DO, Chaparrita A Fast DO, Comments: This is set up for August 05 at 11am- spoke with Rina in cv. Chaparrita A DRAIN/INJECT INTERMED On: 30-Jul-2016 Intent JOINT/BURSA ()By: Comments: lot:[id number]:intra articular left knee dose: 2ml given by: Dr. Singh ABN signedER, ENGINE MECHANIC injection #1 Keri Singh MD Radiology - Knee - On: 26-May-2016 Intent LeftBy: Fast DO, Chaparrita A Fast DO, Chaparrita A Flu Vaccine On: 27-Jan-2016 Intent (Quadrivalent) 62571Um: Comments: Lot #:[id number] date:10/01/16mount given:0.5mlRoute: IMSite given: left deltoidGiven by: CARMELINA Hook Fast DO, Chaparrita A Fast DO, Chaparrita A ADMINISTRATION OF On: 27-Jan-2016 Intent INFLUENZA VIRUS VACCINE (G0008)By: Fast DO, Chaparrita A Fast DO, Chaparrita A DOPPLER ULTRASOUND OF On: 22-Oct-2015 Intent RIGHT CAROTID ARTERY (30230)By: Fast DO, Chaparrita A Fast DO, Chaparrita A MAMMOGRAM, SCREENING, On: 22-Oct-2015 Intent BOTH BREAST (90576)By: Fast DO, Chaparrita A Fast DO, Chaparrita [...] A Flu Vaccine On: 11-Feb-2015 Intent (Quadrivalent) 35186Vn: Fast DO, Chaparrita A Fast DO, Chaparrita A EKG (99586)By: Ambrocio WOLFF, On: 05-Nov-2014 Intent Chaparrita A Fast DO, Chaparrita A Comments: ekg showed normal sinus rhythym, normal axis, no acute st/t wave changes left axis DRAIN/INJECT SMALL JOINT On: 07-Oct-2014 Intent OR BURSA ()By: Francisco MANN, Keri Alonzo MAMMOGRAM, SCREENING, On: 02-Aug-2014 Intent BOTH BREAST (26269)By: Comments: september Fast DO, Chaparrita A Fast DO, Chaparrita A Cartoid DopplerBy: Fast On: 02-Aug-2014 Intent DO, Chaparrita A Fast DO, Chaparrita A DEXA SCAN AXIAL SKELETON On: 09-Apr-2014 Intent (12208)By: Ambrocio DO, Chaparrita A Fast DO, Chaparrita A Prevnar 13 (63544)By: On: 30-Jan-2014 Intent Fast DO, Chaparrita A Fast DO, Comments: Lot:[id number]:05/20Dose:0.5Route:imSite:l armGiven By:Jarred signed Chaparrita A FLU VAC, SPLIT, >3 YEARS, On: 16-Jan-2014 Intent INTRAMUSC (62764)By: Ambrocio Comments: Lot #:[id number] date:12/2015Amount given:0.5mlRoute: IMSite given: left deltoidGiven by: CARMELINA Hook DO, Chaparrita A Fast DO, Chaparrita A ADMINISTRATION OF On: 16-Jan-2014 Intent INFLUENZA VIRUS VACCINE (G0008)By: Ambrocio WOLFF, Chaparrita A Fast DO, Chaparrita A EKG (11846)By: Ambrocio WOLFF, On: 17-Oct-2013 Intent Chaparrita A Fast DO, Chaparrita A Comments: ekg showed normal sinus rhythym, left axis, no acute st/t wave changes Radiology - Chest- PA and On: 17-Sep-2013 Intent LatBy: Fast DO, Chaparrita A Fast DO, Chaparrita A Aerosol Treatment On: 17-Sep-2013 Intent (16587)By: Fast DO, Chaparrita A Fast DO, Chaparrita A MRI - BrainBy: Fast DO, On: 22-Jul-2013 Intent Chaparrita A Fast DO, Chaparrita A Cartoid DopplerBy: Fast On: 20-Jul-2013 Intent DO, Chaparrita A Fast DO, Chaparrita A MAMMOGRAM, SCREENING, On: 20-Jul-2013 Intent BOTH BREASTS (21779)By: Fast DO, Chaparrita A Fast DO, Chaparrita A Eprescribed prescriptions On: 20-Jul-2013 Intent (G8553)By: Fast DO, Chaparrita A Fast DO, Chaparrita A Eprescribed prescriptions On: 02-Feb-2013 Intent (G8553)By: Марина Concepcion FLU VAC, SPLIT, >3 YEARS, On: 03-Jan-2013 Intent INTRAMUSC (19860)By: Comments: Lot #:[id number] date:mount given:0.5mlRoute: IMSite given: L dltdVIS and [...] Марина Concepcion Ear Irrigation On: 13-Jun-2012 Intent (76440)By: Ivy Peter Comments: Ear Irrigation performed on: right earAmount/color removed cerumen: light brown, small amount removedOUtcome:Pt toleratedUsed wax curettes Wax Currettes (30272)By: On: 13-Jun-2012 Intent Ivy Peter PNEUM VAC ADLT/IMUMNOSPR, On: 13-Jun-2012 Intent SBC/INTRM (16185)By: Ambrocio Comments: Lot:[id number]:09/09/13Dose:0.5mLRoute:IMSite:L armGiven By:BHUMI signed DO, Chaparrita A Fast DO, Chaparrita A EKG (11595)By: Ambrocio DO, On: 13-Jun-2012 Intent Chaparrita A [...] MAMMOGRAM, SCREENING, On: 28-Dec-2011 Intent BOTH BREASTS (22692)By: Fast DO, Chaparrita A Fast DO, Chaparrita A DXA, BONE DENSITY, AXIAL On: 28-Dec-2011 Intent SKELETON (05703)By: Fast DO, Chaparrita A Fast DO, Chaparrita [...] SPLIT, >3 YEARS, On: 28-Dec-2011 Intent INTRAMUSC (36161)By: Comments: Lot #:[id number] date:mount given:0.5mlRoute: IMSite given: left deltoidGiven by: CARMELINA Hook Jennifer ADMINISTRATION OF On: 28-Dec-2011 Intent INFLUENZA VIRUS VACCINE (G0008)By: Марина Concepcion Aerosol Treatment On: 30-Nov-2011 Intent (47952)By: Johnana Chang CNP CT - Abdomen & PelvisBy: On: 21-Sep-2011 Intent Fast DO, Chaparrita A Fast DO, Comments: with special cuts through the kidney- october Chaparrita A EKG (40804)By: Jamey, On: 15-Jun-2011 Intent Марина Comments: ekg [...] Comments: Call results to Dr. Albrecht @ [phone] as soon as resulted please. DO, Chaparrita A Fast DO, Chaparrita A Eprescribed prescriptions On: 11-Jan-2011 Intent (G8553)By: Ambrocio DO, Chaparrita A Fast DO, Chaparrita A MAMMOGRAM, SCREENING, On: 11-Jan-2011 Intent BOTH BREASTS (70680)By: Fast DO, Chaparrita A Fast DO, Chaparrita A CT - Sinuses CompleteBy: On: 11-Jan-2011 Intent Fast DO, Chaparrita A Fast DO, Chaparrita A Cartoid DopplerBy: Fast On: 11-Jan-2011 Intent DO, Chaparrita A Fast DO, Chaparrita A ADMINISTRATION OF On: 11-Jan-2011 Intent INFLUENZA VIRUS VACCINE (G0008)By: Марина Concepcion FLU VAC, SPLIT, >3 YEARS, On: 11-Jan-2011 Intent INTRAMUSC (03183)By: Марина Concepcion Eprescribed prescriptions On: 12-Oct-2010 Intent (G8553)By: Fast DO, Chaparrita A Fast DO, Chaparrita A Renal DopplerBy: Fast DO, On: 12-Oct-2010 Intent Chaparrita A Fast DO, Chaparrita A Cartoid DopplerBy: Fast On: 12-Oct-2010 Intent DO, Chaparrita A Fast DO, Comments: dec Chaparrita A TDAP VACCINE >7 IM On: 13-May-2010 Intent ([id number])By: Rivka MENDEZ, Comments: Lot #[id number]-left deltoidgiven by:TIFFANY Malik EKG ([id number])By: Jamey, On: 13-May-2010 Intent Марина Comments: ekg showed normal sinus rhythym, normal axis, no acute st/t wave changes Aerosol Treatment On: 22-Dec-2009 Intent ([id number])By: Johanna Chang CNP Cartoid DopplerBy: Fast On: 01-Dec-2009 Intent DO, Chaparrita A Fast DO, Chaparrita A MAMMOGRAM, SCREENING, On: 01-Dec-2009 Intent BOTH BREASTS ([id number])By: Fast DO, Chaparrita A Fast DO, Chaparrita A DXA, BONE DENSITY, AXIAL On: 01-Dec-2009 Intent SKELETON ([id number])By: Fast DO, Chaparrita A Fast DO, Chaparrita A Ultrasound - SpleenBy: On: 17-Jun-2009 Intent Fast DO, Chaparrita A Fast DO, Chaparrita A EKG ([id number])By: Jamey, On: 10-Mar-2009 Intent Марина Comments: ekg showed normal sinus rhythym, normal axis, no acute st/t wave changes FLU VAC, SPLIT, >3 YEARS, On: 09-Jan-2009 Intent INTRAMUSC ([id number])By: Comments: Lot [id number]-left deltoidDose0.5mlgiven by Stacy Street LPN ADMINISTRATION OF On: 09-Jan-2009 Intent INFLUENZA VIRUS VACCINE ([id number])By: Stacy Jorge MAMMOGRAM, SCREENING, On: 04-Dec-2008 Intent BOTH BREASTS ([id number])By: Fast DO, Chaparrita A Fast DO, Chaparrita A MAMMOGRAM, SCREENING, On: 03-Sep-2008 Intent BOTH BREASTS ([id number])By: Fast DO, Chaparrita A Fast DO, Chaparrita A FLU VAC, SPLIT, >3 YEARS, On: 16-Jan-2008 Intent INTRAMUSC ([id number])By: Gilmer Comments: Lot #: [id number] date: 09/10Amount given: 0.5 mlRoute: IMSite given: Left deltoidGiven by: Olivia Bell LPN RN, Janet ADMINISTRATION OF On: 16-Jan-2008 Intent INFLUENZA VIRUS VACCINE ([id number])By: Janet Scherer RN EKG ([id number])By: Ambrocio DO, On: 29-Aug-2007 Intent Chaparrita A Fast DO, Chaparrita A Comments: done km ADMINISTRATION OF On: 29-Aug-2007 Intent PNEUMOCOCCAL VACCINE ([id number])By: Fast DO, Chaparrita A Fast DO, Chaparrita A PNEUM VAC ADLT/IMUMNOSPR, On: 29-Aug-2007 Intent SBC/INTRM ([id number])By: Ambrocio Comments: 0.5cc given im lt arm [id number] exp 02-13-08 DO, Chaparrita A Fast DO, Chaparrita A DXA, BONE DENSITY, AXIAL On: 29-Aug-2007 Intent SKELETON ([id number])By: Fast DO, Chaparrita A Fast DO, Chaparrita A MAMMOGRAM, SCREENING, On: 29-Aug-2007 Intent BOTH BREASTS ([id number])By: Fast DO, Chaparrita A Fast DO, Chaparrita [...] new people and be involved in the jehovah's witness 0 bps are good and sugar looking [...] medical issues: she has been working with [facility] and trying to work on that- she got rid of respiratory infection but was sick for weeks and was on pred so her sugar up and chol up a bit- trying to add protein shakes drink more water- she is starting back at [facility]- diarrhea resolved- we did talk about [...] that [place] had [place] and she couldnt remember where she was- and happened one other time where she didnt recognize the roads- sister had alzheimer s- weight down because was sick- but coming back up- she hasnt done counseling with hospice has been thru before- she lonely- not necessarily unhappy- she doing self help she is singing with jehovah's witness- -rodriguez gars are all in low 100s-130- going [place] [employer] [place] a month next monthEncounter Diagnosis: Nonsmoker, [...] Eddie and bp is good she joined [employer] sugar up bit doi ng ice cream-the bone density reviewed little thinner she not exercising routienly until just recent at [place] and sees kidney doc next week and [...] maribel yfriend in hospice - going to [facility] end of month- too much to care [...] Meningioma (Renamed from ABNRM RESULT, FUNCTION STUDY, 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)) [facility] Visit [...] Meningioma (Renamed from ABNRM RESULT, FUNCTION STUDY, 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)), Diabetes, Type II, controlled (250.00), [...] [facility]- - takes ??lorazepam 1-2 times a week [...] Meningioma (Renamed from ABNRM RESULT, FUNCTION STUDY, 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)), Colon Polyp [facility] [...] Meningioma (Renamed from ABNRM RESULT, FUNCTION STUDY, 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)), OCCLUSION AND STENOSIS OF CAROTID [...] Meningioma (Renamed from ABNRM RESULT, FUNCTION STUDY, 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)), Chronic glomerulonephritis with lesion of [...] Meningioma (Renamed from ABNRM RESULT, FUNCTION STUDY, 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)), Other and unspecified hyperlipidemia (272.4), [...] Meningioma (Renamed from ABNRM RESULT, FUNCTION STUDY, 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)) [facility] Visit [...] Meningioma (Renamed from ABNRM RESULT, FUNCTION STUDY, 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)), Gerd (530.81), Hyperlipidemia, Unspecified (272.4), [...] Meningioma (Renamed from ABNRM RESULT, FUNCTION STUDY, 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)), Hypertension,benign(401.1), OCCLUSION AND STENOSIS OF [...] Meningioma (Renamed from ABNRM RESULT, FUNCTION STUDY, 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)), Diabetes, Type II, controlled (250.00), [...] Meningioma (Renamed from ABNRM RESULT, FUNCTION STUDY, 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)), Hypertension,benign(401.1), Osteopenia (733.90), Depression (311.), Elevated LFT (790.6) , renal mass [facility] Office Visit On: 15-Jun-2011 8:01 Encounter Reason: Follow up for chronic medical issues - The patient feels well with minor complaints (some depression- Dr. iSngh told her with the swtich from lexapro [...] weight down 23 pounds- and trying joined [employer]- she feels well - she increased celexa [...] Meningioma (Renamed from ABNRM RESULT, FUNCTION STUDY, 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)), Chronic glomerulonephritis with lesion of [...] Meningioma (Renamed from ABNRM RESULT, FUNCTION STUDY, 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)) End: 26-Jan-2011 16:53 [facility] Office Visit On: 19-Jan-2011 14:30 Encounter Diagnosis: brain tumor End: 21-Sep-2011 8:09 [facility] Phone Encounter On: 19-Jan-2011 13:41 Encounter Diagnosis: ABNRM RESULT, FUNCTION STUDY, 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) End: 19-Jan-2011 13:44 [facility] [...] WITH RADICULOPATHY (724.4) [facility] Payers MedicareAARP/[employer]; a guarantor
--- OUTSIDE RECORDS SUMMARY | 2018-06-25 22:40 | XMS RPT_ITS | Continuity of Care Document ---
:1940 Author Organization [facility] Address [address] [place] [address] Phone Care Team Providers Name Role Phone [...] Knee pain, unspecified laterality (719.46) Comments: Valorie:lot: [id number]: 09/20site/route: L knee Status: Active Leg pain, [...] spray daily for 0 days Quantity: 1 {[place]} Refills: 0 Ordered:04-May-2016 SHONDA Andrade Start : [...] Quantity: 12 {Tablet} Refills: 0 Ordered:06-Jun-2017 Inna Ryenoso Start : 10-May-2017 End : 06-Jun-2017 Inactive [...] and dispense 8 ounes TOTAL mixed solutionCal [id number] if questions SPECTAZOLE, 1% (External Cream) 1 [...] End : 11-Feb-2015 Discontinued Comments:th[age], called to [facility] 08-30-14 erussell Allergies and Adverse Reactions [...] Meningioma (Renamed from ABNRM RESULT, FUNCTION STUDY, BRAIN/GLAZIER METAL FURNITURE NEC) (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 2016 right Cholecystectomy Completed lumbar smufvp==3570 Completed Tonsillectomy Completed Date Value Details 19-Dec-2017 Echocardiogram Complete Result: Comments: See Note; NOTES: [facility] Cardiovascular Services [address] [place] [address] Echo Complete 12/19/17 0800 MR#: [id number] Acct: [id number] Name: CLARENCE ALBERT ep #: [id number] : 1940 77 From: Chuckie Cormier MD Attending Dr: Chaparrita Albrecht DO Status: REG CLI Ordering Dr: Chaparrita Albrecht DO Date: 12/19/17 Location: [facility] Sex: F C Admitted: Reason For [...] Dictated: 12/19/17 0800 Date Transcribed: 12/19/17 1022 Stranding Machine Operator: Signed 07-Dec-2017 Carotid Duplex Ultrasound Result: Comments: See Note; NOTES: [facility] Cardiovascular Services [address] [place] [address] Carotid Duplex Ultrasound 12/06/17 0901 MR#: [id number] Acct: [id number] Name: CLARENCE WHITTINGTON Rep #: [id number] : 1940 77 From: Anurag Loya MD [...] the left vertebral artery. Procedure Carotid Duplex 07854. Exam performed in department. Interpretation Summary Mild (<50%) stenosis right extracranial internal carotid. Mild (<50%) stenosis left extracranial internal carotid. Flow within the vertebral arteries is antegrade bilaterally. __ __ Ordering Physician: Chaparrita Albrecht Performed By: Margot Benton RVT and Student 12/07/17 0809 Date Anurag Loya MD CC: Chaparrita Albrecht DO Date Dictated: 12/06/17900 Date Transcribed: 12/07/17808 Stranding Machine Operator: Signed 06-Dec-2017 SCREENING MAMM (CAD), BILAT Result: Comments: See Note; NOTES: [facility] Imaging Services [address] [place] [address] SCREENING MAMM (CAD), BILAT MR#: [id number] Acct: [id number] Name: CLARENCE ALBERT Rep #: [id number] : 1940 F 77 From: Misael Hebert MD PCP: Chaparrita Albrecht DO Status: REG CLI Study: SCREENING MAMM (CAD), BILAT Date of Exam: 12/06/17 Exam# [id number] Ordering Dr: Chaparrita Albrecht DO MAMM OGRAPHY [...] delay biopsy of a clinically suspicious abnormality. [id number] Electronically Signed: Misael Hebert MD at 15:31 EDT Tel [phone], rvice support , CC: Chaparrita Albrecht DO Stranding Machine Operator: Signed 10-Jun-2017 Brain W/WO Contrast Result: Comments: See Note; NOTES: [facility] Imaging Services [address] [place] [address] Brain W/WO Contrast MR#: [id number] Acct: [id number] Name: CLARENCE ALBERT Rep #: [id number] : 1940 F 77 From: Laya Montilla MD PCP: Chaparrita Albrecht DO Status: REG CLI Study: Brain W/WO Contrast Date of Exam: 06/10/17 Exam# [id number] Ordering Dr: Chaparrita Albrecht DO STUDY: MRI [...] Service support , CC: Chaparrita Albrecht DO Stranding Machine Operator: Signed 05-May-2017 Chest PA and Lateral Result: Comments: See Note; NOTES: [facility] Imaging Services [address] [place] [address] Chest PA and Lateral MR#: [id number] Acct: [id number] Name: CLARENCE ALBERT Rep #: [id number] : 1940 F 77 From: Edwar Patino MD PCP: Chaparrita Albrecht DO Status: REG CLI Study: Chest PA and Lateral Date of Exam: 05/05/17 Exam# [id number] Ordering Dr: Keri Singh MD STUDY: X-RAY [...] CC: Keri Singh MD; Chaparrita Albrecht DO Stranding Machine Operator: Signed 02-Nov-2016 Dexa Bone Density Study (HP) Result: Comments: See Note; NOTES: [facility] Imaging Services [address] [place] [address] Verdana 4d Dexa Bone Density Study (HP) MR#: [id number] Acct: [id number] Name: LYNNE ALBERT Rep #: [id number] : 1940 F 76 From: Misael Hebert MD PCP: Chaparrita Albrecht DO Status: REG CLI Study: Dexa Bone Density Study () Date of Exam: 11/02/16 Exam# [id number] Ordering Dr: Laura DO STUDY: DUAL ENERGY [...] Misael Hebert MD at 11:02 EDT Tel [phone], Service support , CC: Chaparrita Albrecht DO Stranding Machine Operator: Signed 02-Nov-2016 SCREENING MAMM (CAD), BILAT Result: Comments: See Note; NOTES: [facility] Imaging Services [address] [place] [address] Verdana 4d SCREENING MAMM (CAD), BILAT MR#: [id number] Acct: [id number] Name: CLARENCE ALBERT Rep #: [id number] : 1940 F 76 From: Misael Hebert MD PCP: Chaparrita Albrecht DO Status: [facility] CLI Study: SCREENING MAMM (CAD), BILAT Date of Exam: 11/02/16 Exam# [id number] Ordering Dr: Case Albrecht DO MAMMOGRAPHY - [...] delay biopsy of a clinically suspicious abnormality. [id number] Electronically Signed: Misael Hebert MD at 12:44 EDT Tel [phone], Service support , CC: Chaparrita Albrecht DO Stranding Machine Operator: Signed 05-Aug-2016 Venous Duplex Lower Extremity Result: Comments: See Note; NOTES: [facility] Cardiovascular Services [address] [place] [address] Venous Duplex US, Unilateral 08/05/16 1053 MR#: [id number] Acct: [id number] Name: CLARENCE WEI Rep #: [id number] : 1940 76 From: Elvin Natarajan MD [...] Dictated: 08/05/16 1053 Date Transcribed: 08/05/16 1127 Stranding Machine Operator: Signed 27-May-2016 Knee 4 or More Views Result: Comments: See Note; NOTES: [facility] Imaging Services [address] [place] [address] Verdana 4d Knee 4 or More Views MR#: [id number] Acct: [id number] Name: CLARENCE ALBERT Rep #: [id number] : 1940 F 76 From: Misael Hebert MD PCP: Chaparrita Albrecht DO Status: REG CLI Study: Knee 4 or More Views Date of Exam: 05/27/16 Exam# [id number] Ordering Dr: Kylah Linda UDY: X-RAY - [...] MD at 10:41 EST , Service support [phone], CC: Chaparrita Albrecht DO; Kylah Linda DO Stranding Machine Operator: Signed 13-May-2016 Sinus/Facial Bone Result: Comments: See Note; NOTES: [facility] Imaging Services [address] [place] [address] Verdana 4d Sinus/Facial Bone MR#: [id number] Acct: [id number] Name: ALBERTCLARENCE J Rep #: [id number] : 1940 F 76 From: Godwin Winter MD PCP: Chaparrita Albrecht DO Status: REG CLI Study: Sinus/Facial Bone Date of Exam: 05/13/16 Exam# [id number] Ordering Dr: Alejandro Silverman MD STUDY: CT [...] MD at 7:35 EST , Service support [phone], CC: Chaparrita Albrecht DO; Alejandro Silverman MD Stranding Machine Operator: Signed 21-Apr-2016 Emergency Department Summary Result: Comments: See Note; NOTES: [facility] Medical Records Department [address] [place] [address] Emergency Department Summary MR#: [id number] Acct: [id number] Name: CLARENCE ALBERT Rep #: [id number] : 1940 76 From: Carissa Murphy MD [...] epistaxis. CARISSA MURPHY MD T: NTS JOB: [id number] 04/21/16805 <Electronically signed by Carissa Murphy MD> Date Carissa donovan MD Cosigner Signature (If Indicated): Date CC: Chaparrita Albrecht DO Date Dictated: 04/20/161711 Date Transcribed: 04/20/161711 Stranding Machine Operator: Signed 20-Apr-2016 Discharge Instruction Result: Comments: See Note; NOTES: [facility] Medical Records Department [address] [place] [address] Discharge Instruction 04/20/16 1303 MR#: [id number] Acct: [id number] Name: CLARENCE ALBERT Rep #: [id number] : 1940 76 From: Carissa Murphy MD PCP: Chaparrita Albrecht DO Status: [facility] ER ED Disposition - Plan for [...] your Primary Care Provider. Call [facility] ([phone]) or report to the closest Emergency Room. Call 911 if necessary. 04/20/16 2475 <Electronically signed by Carissa Murphy MD> Date Carissa Murphy MD Cosigner Signature (If I ndicated): Date CC: Chaparrita Albrecht DO 02-Nov-2015 Carotid Duplex Ultrasound Result: Comments: See Note; NOTES: [facility] Cardiovascular Services [address] [place] [address] Carotid Duplex Ultrasound 10/30/15 1100 MR#: [id number] Acct: [id number] Name: CLARENCE ALBERT Rep #: [id number] : 1940 75 From: Elvin Natarajan MD Attending Dr: Chaparrita Albrecht DO Status: REG CLI Ordering Dr: Chaparrita Albrecht DO Date: 10/30/15 Location: [facility] Sex: F C Adm itted: Reason [...] the left vertebral artery. Procedure Carotid Duplex 27501. The exam was diagnostic. Exam performed in [...] Dictated: 10/30/15 1100 Date Transcribed: 11/02/15 1143 Stranding Machine Operator: Signed 30-Oct-2015 Bilat Scrn Digital AND CAD Result: Comments: See Note; NOTES: [facility] Imaging Services [address] [place] [address] Verdana 4d Bilat Scrn Digital AND CAD MR#: [id number] Acct: [id number] Name: CLARENCE ALBERT Rep #: [id number] : 1940 F 75 From: Andres Brady MD PCP: Chaparrita Albrecht DO Status: REG CLI Study: Saad Jaffe Digital AND CAD Date of Exam: 10/30/15 Exam# [id number] Ordering Dr: Chaparrita Albrecht DO MAMMOGRAPHY - [...] biop sy of a clinically suspicious abnormality. [id number] Electronically Signed: Andres Brady MD at 17:48 EDT Tel , Service support [phone], CC: Chaparrita Albrecht DO Stranding Machine Operator: Signed 30-Oct-2015 Bilat Scrn Digital AND CAD Result: Comments: See Note; NOTES: [facility] Imaging Services [address] [place] [address] Verdana 4d Bilat Scrn Digital AND CAD MR#: [id number] Acct: [id number] Name: CLARENCE ALBERT Rep #: [id number] : 1940 F 75 From: Andres Brady MD PCP: Chaparrita Albrecht DO Status: REG CLI Study: Bilat Scrn Digital AND CAD Date of Exam: 10/30/15 Exam# [id number] Ordering Dr: Chaparrita Albrecht DO MAMMOGRAPHY - [...] abnormalities are identified. CC: Chaparrita Albrecht DO Stranding Machine Operator: Signed 22-Oct-2015 ELECTROCARDIOGRAM, COMPLETE (ECG) (57262) Comments: ekg showed normal sinus rhythym, normal axis, no acute st/t wave changes no change Result: [MEASUREMENTS ANALYSIS] Date of Test: 10/22/2015 14:41:29; Heart Rate: 71; LA Interval: 140; QRS: 94; QT Interval: 384; Corrected QT Interval (QTc): 403; P Wave [place]: 58; QRS Wave [place]: -3; T Wave [place]: 56; Blood Pressure: 128/76 [ECG DIAGNOSTIC STATEMENTS] Date of Test: 10/22/2015 14:41:29; Summary: Sinus Rhythm Low voltage -possible pulmonary disease. ABNORMAL 22-Jul-2015 Kidney and Bladder Result: Comments: See Note; NOTES: [facility] Imaging Services [address] [place] [address] Verdana 4d Kidney and Bladder MR#: [id number] Acct: [id number] Name: Yaniv ALBERT Rep #: [id number] : 1940 F 75 From: Nir Sanchez MD PCP: Chaparrita Albrecht DO Status: REG CLI Study: Kidney and Bladder Date of Exam: 07/22/15 Exam# [id number] Ordering Dr: Chaparrita Albrecht DO STUDY: RENAL [...] Service support , CC: Chaparrita Albrecht DO Stranding Machine Operator: Signed 11-Mar-2015 Knee 4 or More Views Result: Comments: See Note; NOTES: [facility] Imaging Services [address] [place] [address] Verdana 4d Knee 4 or More Views MR#: [id number] Acct: [id number] Name: CLARENCE ALBERT Rep #: [id number] : 1940 F 74 From: Trent Cameron DO PCP: Chaparrita Albrecht DO Status: REG CLI Study: Knee 4 or More Views Date of Exam: 03/11/15 Exam# [id number] Ordering Dr: Case Albrecht DO STUDY: X-RAY [...] at 7:45 EST Tel , Service support [phone], RAD/Knee 4 or More Views IMPRESSION: Degener ative changes within the knee. No acute fracture. Small suprapatellar effusion. Electronically Signed: Trent Cameron DO at 7:45 EST Tel , Service support [phone], CC: Chaparrita Albrecht DO Stranding Machine Operator: Signed 11-Mar-2015 Knee 4 or More Views Result: Comments: See Note; NOTES: [facility] Imaging Services [address] [place] [address] Verdana 4d Knee 4 or More Views MR#: [id number] Acct: [id number] Name: BETY CLARENCE Nazia Rep #: [id number] : 1940 F 74 From: Trent Cameron DO PCP: Chaparrita Albrecht DO Status: REG CLI Study: Knee 4 or More Views Date of Exam: 03/11/15 Exam# [id number] Ordering Dr: Case Albrecht DO STUDY: X-RAY [...] at 7:46 EST Tel , Service support [phone], RAD/Knee 4 or More Views IMPRESSION: Mild degenerative changes. No acute bony abnormality. Electronically Signed: Trent Cameron DO at 7:46 EST Tel , Service support [phone], CC: Chaparrita Albrecht DO Stranding Machine Operator: Signed 18-Oct-2014 Carotid Duplex Ultrasound Result: Comments: See Note; NOTES: [facility] Cardiovascular Services [address] [place] [address] Carotid Duplex Ultrasound 10/18/14 1331 MR#: [id number] Acct: [id number] Na me: CLARENCE ALBERT Rep #: [id number] : 1940 74 From: Elvin Natarajan MD Attending Dr: Chaparirta Albrecht DO Status: REG CLI Ordering Dr: [...] the left vertebral artery. Procedure Carotid Duplex 85150. The exam was diagnostic. Exam performed in [...] Dictated: 10/18/14 1331 Date Transcribed: 10/18/14 1616 Stranding Machine Operator: Signed 18-Oct-2014 Bilat Scrn Digital AND CAD Result: Comments: See Note; NOTES: [facility] Imaging Services [address] [place] [address] Breast Imaging Report MR#: [id number] Acct: [id number] Name: CLARENCE ALBERT Rep #: [id number] : 1940 F 74 From: Misael Hebert MD PCP: Chaparrita Albrecht DO Status: REG CLI Study: Saad Jaffe Digital AND CAD Date of Exam: 10/18/14 Exam# [id number] Ordering Dr: Chaparrita Albrecht DO MAMMOGRAPHY - [...] Misael redmond MD at 13:44 EDT Tel [phone], Service support [phone], CC: Chaparrita Albrecht DO Stranding Machine Operator: Signed 09-Jul-2014 Dexa Bone Density Study (HP) Result: Comments: See Note; NOTES: [facility] Imaging Services [address] [place] [address] Bone Density Report MR#: [id number] Acct: [id number] Name: CLARENCE ALBERT Rep #: [id number] : 1940 F 74 From: Misael Hebert MD PCP: Chaparrita Albrecht DO Status: REG CLI Study: Dexa Bone Density Study (HP) Date of Exam: 07/09/14 Exam# [id number] Ordering Dr: Chaparrita Albrecht DO STUDY: DUAL [...] Angel Hebert MD at 14:55 EDT Tel [phone], Service support [phone], CC: Chaparrita Albrecht DO Stranding Machine Operator: Signed 17-Sep-2013 Chest PA and Lateral Result: Comments: See Note; NOTES: [facility] Imaging Services [address] [place] [address] Radiology Report MR#: [id number] Acct: [id number] Name: CLARENCE ALBERT Rep #: [id number] : 1940 F 73 From: David Bennett MD PCP: Chaparrita Albrecht DO Status: REG CLI Study: Chest PA and Lateral Date of Exam: 09/17/13 Exam# [id number] Ordering Dr: Chaparrita Albrecht DO STUDY: X-RAY [...] MD at 20:44 EDT , Service support [phone], RAD/Chest PA and Lateral IMPRESSION: No focal infiltrate or edema. Electronic ally Signed: David Bennett MD at 20:44 EDT , Service support [phone], CC: Chaparrita Albrecht DO Stranding Machine Operator: Signed 17-Sep-2013 Spirometry (83291) Result: 29-Aug-2013 Carotid Duplex Ultrasound Result: Comments: See Note; NOTES: [facility] Cardiovascular Services [address] [address] Carotid Duplex Ultrasound 08/24/13 0939 MR#: [id number] Acct: [id number] Nam e: CLARENCE ALBERT Rep #: [id number] : 1940 73 From: Anurag Loya MD Attending Dr: Chaparrita Albrecht DO Status: REG CLI Ordering Dr: Chaparrita Albrecht DO Date: 08/24/13 Location: [facility] Sex: F C Admitted: Rt. Velocities/BP [...] in the left bulb. Procedure Carotid Duplex 92439. Exam perfor med in department. Interpretation Summary Mild (<50%) stenosis right extracranial internal carotid. Mild (<50%) stenosis left extracranial internal carotid. Flow within the vertebra l arteries is antegrade bilaterally. Ordering Physician: Chaparrita Albrecht Performed By: Kendal Benton RVT : Chaparrita Albrecht DO Date Dictated: 08/24/13 0939 Date Transcribed: 08/29/13 111 Stranding Machine Operator: Signed Immunization Name Dates Details Influenza (3 years and up) on: 16-Jan-2008 Comments: Lot #: [id number] date: 09/10Amount given: 0.5 mlRoute: IMSite given: Left deltoidGiven by: Olivia Bell LPN Influenza (3 years and up) on: 09-Jan-2009 Comments: Lot #[id number]-left deltoidDose0.5mlgiven by Marycarmen Jorge LPN Pneumococcal (2 years and up) on: 29-Aug-2007 Comments: 0.5cc given im lt arm [id number] exp 02-13-08 Family History Unknown Family Member [...] Description Value Details :24 HgA1C , Office (37011) HgA1C , Office 6.5 % (Normal) Range: 4.6 - 7.1 :14 LIPID PANEL (62606) Comments: PATIENT WAS FASTINGPERFORMED BY: [email or web address] [facility] [id number] LDL/HDL Ratio 1.1 {ratio} (Normal) Range: 0.0-3.2 [...] (Normal) Range: 100-199 :14 Vitamin D Hydroxy (59458) Comments: PATIENT WAS FASTINGPERFORMED BY: [email or web address] [facility] [id number] Vitamin D, 25-Hydroxy 37.8 ng/mL (Normal) Range: 30.0-100.0 Comments: Vitamin D deficiency has been defined by the [place] of[place] and an Endocrine Society practice guideline as alevel of serum 25-OH vitamin D less than 20 ng/mL (1,2).The Endocrine Society went on to further define vitamin Dinsufficiency as a level between 21 and 29 ng/mL (2).1. IOM ([place] [employer]). 2010. Dietary reference intakes for calcium and D. [place]: The National Academies Press.2. Mira MF, Rosette LOPEZ, Tommy SWAIN, et al. Evaluation, treatment, and prevention of vitamin D deficiency: an Endocrine Society clinical practice guideline. JCEM. 2010; 96(7):1911-30. :14 CBC with auto diff (47687) Comments: PATIENT WAS FASTINGPERFORMED BY: LabCoRiverview Medical CenterLucuuh1421 [facility] [id number] Immature Grans (Abs) 0.0 {x10E3/uL} (Normal) Range: [...] PANEL, COMPREHENSIVE Comments: PATIENT WAS FASTINGPERFORMED BY: LabCoRiverview Medical CenterXrgmvz6116 [facility] [id number] (50575) ALT (SGPT) 10 [iU]/L (Normal) Range: 0-32 [...] CREATININE RATIO Comments: PATIENT WAS FASTINGPERFORMED BY: [employer]sense [employer] [facility] [id number] (95314) AND (15513) Alb/Creat Ratio 4213.3 {mg/g_creat} (Abnormal) Range: 0.0-30.0 Albumin, Urine 3206.3 ug/mL (Normal) Comments: Results confirmed ondilution. Creatinine, Urine 76.1 mg/dL (Normal) 05-Nic-24816:40 CBC & PLATELETS (AUTO) (25913) Comments: please fax to Dr. Austin- [phone]; PATIENT WAS FASTINGPERFORMED BY: my6senseUNM Psychiatric CenterSvhpff8874 [facility] [id number] Platelets 148 {x10E3/uL} (Abnormal) Range: 150-379 RDW 14.8 % (Normal) Range: 12.3-15.4 MCHC 33.6 g/dL (Normal) Range: 31.5-35.7 MCH 29.7 pg (Normal) Range: 26.6-33.0 MCV 89 fL (Normal) Range: 79-97 Hematocrit 36.9 % (Normal) Range: 34.0-46.6 Hemoglobin 12.4 g/dL (Normal) Range: 11.1-15.9 RBC 4.17 {x10E6/uL} (Normal) Range: 3.77-5.28 WBC 4.7 {x10E3/uL} (Normal) Range: 3.4-10.8 32-Eoq-09891:40 RENAL FUNCTION PANEL Comments: please fax to Dr. Austin- [phone]; PATIENT WAS FASTINGPERFORMED BY: POPAPP [facility] HospitalTX. com. cnSandhills Regional Medical Center [id number] Information: [id number] FX DR. SANTANA (17340) Albumin 3.1 g/dL (Abnormal) Range: 3.5-4.8 Phosphorus [...] 133 mg/dL (Abnormal) Range: 65-99 :40 MAGNESIUM (30078) Comments: please fax to Dr. Austin- [phone]; PATIENT WAS FASTINGPERFORMED BY: [email or web address].com6370 [employer] [facility] HospitalTX. com. cnSandhills Regional Medical Center [id number] Magnesium 1.9 mg/dL (Normal) Range: 1.6-2.3 :40 CALCIFEDIOL (47549) Comments: please fax to Dr. Austin- [phone]; PATIENT WAS FASTINGPERFORMED BY: Jukedeck Pwxgoj0817 [facility] [id number] Vitamin D, 25-Hydroxy 29.4 ng/mL (Abnormal) Range: 30.0-100.0 Comments: Vitamin D deficiency has been defined by the [place] [employer] and an Endocrine Society practice guideline as alevel of serum 25-OH vitamin D less than 20 ng/mL (1,2).The Endocrine Society went on to further define vitamin Dinsufficiency as a level between 21 and 29 ng/mL (2).1. IOM ([place] [employer]). 2010. Dietary reference intakes for calcium and D. [place]: The National Academies Press.2. Mira MF, Rosette LOPEZ, Tommy SWAIN, et al. Evaluation, treatment, and prevention of vitamin D deficiency: an Endocrine Society clinical practice guideline. JCEM. 2010; 96(7):1911-30. :40 PARATHORMONE (76607) Comments: please fax to Dr. Austin- [phone]; PATIENT WAS FASTINGPERFORMED BY: EVE Jukedeck Kvsian4044 [facility] [id number] PTH, Intact 22 pg/mL (Normal) Range: 15-65 :30 COLON BIOPSY (CHOOSE See Note (Normal) Comments: [facility] [address] [place], [place], [address] SITE) Comments: Patient: CLARENCE ALBERT : 1940 (77/F) Acct Num: [id number] Phys: Marcus Caldera Unit Num: [id number] Loc: LABSPEC Specimen: [id number] Received: 09/16/171528 Spec Type: C OLON BX [...] one cassette. / MARCY:dustin 09/19/17 TC:1 CPT: 78758 x2 HEADER OPERATION: Colonoscopy PRE-OP DIAGNOSIS: History of polyps TISSUE SUBMITTED: A Proximal sigmoid polyp, rule out adenoma, B Transversecolon, rule out adenoma MICROSCOPIC DESCRIPTION Slides are reviewed. M ICROSCOPIC DIAGNOSIS A. Proximal sigmoid polyp, biopsy: Fragments of tubular adenoma. B. Transverse colon polyp, biopsy: Fragments of tubular adenoma. SJ:dustin 09/20/17 Signed _ Nacho Ardon 09/20/17 <signature on file> 71-Ttb-99505:24 METABOLIC PANEL, COMPREHENSIVE Comments: PATIENT NOT FASTINGPERFORMED BY: LabCoRiverview Medical CenterNheyfs2951 [facility] [id number] (27548) ALT (SGPT) 14 [iU]/L (Normal) Range: 0-32 [...] (Abnormal) Range: 65-99 :07 HgA1C , Office (28597) HgA1C , Office 7.2 % (Abnormal) Range: 4.6 - 7.1 :37 Clostridium difficile Toxin Comments: PATIENT NOT FASTINGPERFORMED BY: [email or web address] [place] [id number] A+B, EIA (37874) C difficile Toxins A+B, EIA Negative (Normal) :37 LEUKOCYTE COUNT, FECAL (59913) Comments: PATIENT NOT FASTINGPERFORMED BY: [email or web address] [place] [employer] [place] [id number] Result 1 NWBC (Normal) Comments: No white blood cells seen. White Blood Cells (WBC), Final report (Normal) Stool :37 OVA & PARASITE DIR SMEAR Comments: PATIENT NOT FASTINGPERFORMED BY: [email or web address] [place] [id number] (28687) Result 1 NOCP (Normal) Comments: No ova, cysts, or parasites seen. Ova + Parasite Exam Final report (Normal) Comments: These results were obtained using wet preparation(s) and trichromestained smear. This test does not include testing for Cryptosporidiumparvum, Cyclospora, or Microsporidia. :37 SETH CULTURE-STOOL (29564) Comments: PATIENT NOT FASTINGPERFORMED BY: [email or web address] [place] [id number] Information: SRC:ST SRC:ST E coli Shiga Toxin EIA Negative (Normal) Result 1 NCI (Normal) Comments: No Campylobacter species isolated. Campylobacter Culture Final report (Normal) Result 1 NSS (Normal) Comments: No Salmonella or Shigella recovered. Salmonella/Shigella Screen Final report (Normal) 85-Bfk-21852:06 Renal function Panel Comments: fax copy to Dr. Santana [phone]; A courtesy copy of this report has been sent [phone].PATIENT NOT FASTINGPERFORMED BY: Jukedeck Kzqvyt9094 [facility] [id number] Information: NURSE DRAW (00709) Albumin 3.5 g/dL (Normal) Range: 3.5-4.8 Phosphorus [...] copy of this report has been sent [phone].PATIENT NOT FASTINGPERFORMED BY: Jukedeck Nnugzs4390 [facility] [id number] :02 Range: 15-65 Vitamin D, 25-Hydroxy 34.7 ng/mL (Normal) Comments: A courtesy copy of this report has been sent [phone].PATIENT NOT FASTINGPERFORMED BY: Jukedeck Ofdang3255 [facility] [id number] :02 Range: 30.0-100.0 Comments: Vitamin D deficiency has been defined by the [place] of[place] and an Endocrine Society practice guideline as alevel of serum 25-OH vitamin D less than 20 ng/mL (1,2).The Endocrine Society went on to further define vitamin Dinsufficiency as a level between 21 and 29 ng/mL (2).1. IOM ([place] of [employer]). 2010. Dietary reference intakes for calcium and D. [place]: The National AcademIngresse Press.2. Mira MF, Rosette LOPEZ, Tommy SWAIN, et al. Evaluation, treatment, and prevention of vitamin D deficiency: an Endocrine Society clinical practice guideline. JCEM. 2010; 96(7):1911-30. 4-Veb-955295:02 MICROALBUMIN: CREATININE RATIO Comments: send results to Dr. Satnana fax: [phone]; A courtesy copy of this report has been sent [phone].PATIENT NOT FASTINGPERFORMED BY: [employer]70 [employer] [id number] (82444) AND (76017) Alb/Creat Ratio 4191.2 {mg/g_creat} (Abnormal) Range: 0.0-30.0 Albumin, Urine 2380.6 ug/mL (Normal) Comments: Results confirmed ondilution. Creatinine, Urine 56.8 mg/dL (Normal) 5-Xpm-692362:02 CBC, PLATELETS & MANUAL Comments: send results to Dr. Santana fax: [phone]; A courtesy copy of this report has been sent [phone].PATIENT NOT FASTINGPERFORMED BY: [employer]70 IngresseSandh[facility] [id number] Information: VIT D25, PTH DIFF (74698) Immature Grans (Abs) 0.0 {x10E3/uL} (Normal) Range: [...] 3.77-5.28 WBC 5.4 {x10E3/uL} (Normal) Range: 3.4-10.8 3-Fhi-840086:02 MAGNESIUM (12152) Comments: send results to Dr. Santana fax: [phone]; A courtesy copy of this report has been sent [phone].PATIENT NOT FASTINGPERFORMED BY: my6senseRiverview Medical CenterKxzwit8736 [facility] [id number] Magnesium, Serum 1.8 mg/dL (Normal) Range: 1.6-2.3 0-Iyi-789783:02 RENAL FUNCTION PANEL (50707) Comments: send results to Dr. Santana fax: [phone]; A courtesy copy of this report has been sent [phone].PATIENT NOT FASTINGPERFORMED BY: JukedeckRiverview Medical CenterOnixww4970 [facility] [id number] Albumin, Serum 3.7 g/dL (Normal) Range: 3.5-4.8 [...] Glucose, Serum 119 mg/dL (Abnormal) Range: 65-99 9-Arg-277792:07 LIPID PANEL (16623) Comments: PATIENT WAS FASTINGPERFORMED BY: [employer]70 [facility]gresseSandhills [facility] [id number] LDL/HDL Ratio 1.4 {ratio} (Normal) Range: 0.0-3.2 Comments: LDL/HDL Ratio Men Women 1/2 Avg.Risk 1.0 1.5 Av g.Risk 3.6 3.2 2X Avg.Risk 6.2 5.0 3X Avg.Risk 8.0 6.1 LDL Cholesterol Calc 102 mg/dL (Abnormal) Range: 0-99 VLDL Cholesterol Cesar 17 mg/dL (Normal) Range: 5-40 HDL Cholesterol 75 mg/dL (Normal) Triglycerides 84 mg/dL (Normal) Range: 0-149 Cholesterol, Total 194 mg/dL (Normal) Range: 100-199 5-Otk-658754:07 CBC W/AUTO DIFF WBC (26349) Comments: PATIENT WAS FASTINGPERFORMED BY: Inmagic6370 [facility] [id number] Immature Grans (Abs) 0.0 {x10E3/uL} (Normal) Range: [...] 3.77-5.28 WBC 4.8 {x10E3/uL} (Normal) Range: 3.4-10.8 5-Qug-057504:07 METABOLIC PANEL, COMPREHENSIVE Comments: PATIENT WAS FASTINGPERFORMED BY: LabCoRiverview Medical CenterDksysx9600 [facility] [id number] (29946) ALT (SGPT) 14 [iU]/L (Normal) Range: 0-32 [...] 8-27 Glucose 158 mg/dL (Abnormal) Range: 65-99 1-Mka-253199:07 VITAMIN B-12 (CYANOCOBALAMIN) Comments: PATIENT WAS FASTINGPERFORMED BY: Pushpay [facility] [facility] HospitalTX. com. cnSandhills Regional Medical Center [id number] (16265) Vitamin B12 771 pg/mL (Normal) Range: 232-1245 13-May-20170:00 CDIFF (Molecular) Comments: [facility] Vpvrextikn5358 [place], [address] CDIFF See Note (Normal) Comments: Cdiff-MolecularNormal Reference Range = Negative C. Diff DNA Negative- No toxigenic C. Diff DNA DetectedNAAT METHOD Testing was performed using nucleic acid amplification 05-May-20179:32 Rapid Flu (79835 x 2) Influenza A Ag Negative (Normal) :35 CBC with auto diff (92391) Comments: PATIENT WAS FASTINGPERFORMED BY: DogVacay Jtrrze9157 [facility] [id number] Immature Grans (Abs) 0.0 {x10E3/uL} (Normal) Range: [...] 3.77-5.28 WBC 6.6 {x10E3/uL} (Normal) Range: 3.4-10.8 43-Rhc-86137:35 METABOLIC PANEL, COMPREHENSIVE Comments: PATIENT WAS FASTINGPERFORMED BY: [facility] CenterCoRiverview Medical CenterGogvjh4327 [facility] [id number] (51091) ALT (SGPT) 16 [iU]/L (Normal) Range: 0-32 [...] Glucose, Serum 145 mg/dL (Abnormal) Range: 65-99 89-Qvo-887047:51 HgA1C , Office (71533) HgA1C , Office 6.7 % (Normal) Range: 4.6 - 7.1 6-Fen-288145:50 CALCIFEDIOL (67243) Comments: A courtesy copy of this report has been sent [phone].PATIENT WAS FASTINGPERFORMED BY: LabAscension Borgess Hospital6370 [facility] [id number] Vitamin D, 25-Hydroxy 40.7 ng/mL (Normal) Range: 30.0-100.0 Comments: Vitamin D deficiency has been defined by the [place] of[facility] and an Endocrine Society practice guideline as alevel of serum 25-OH vitamin D less than 20 ng/mL (1,2).The Endocrine Society went on to further define vitamin Dinsufficiency as a level between 21 and 29 ng/mL (2).1. IOM ([place] of [employer]). 2010. Dietary reference intakes for calcium and D. [place]: The National Academies Press.2. Mira MF, Rosette [place], Tommy SWAIN, et al. Evaluation, treatment, and prevention of vitamin D deficiency: an Endocrine Society clinical practice guideline. JCEM. 2010; 96(7):1911-30. 8-Mjh-336519:50 PTH (PARATHORMONE) (57704) Comments: A courtesy copy of this report has been sent [phone].PATIENT WAS FASTINGPERFORMED BY: my6sense Hrcysu1240 [facility] [id number] PTH, Intact 20 pg/mL (Normal) Range: 15-65 6-Oha-829787:50 MICROALBUMIN: CREATININE RATIO Comments: A courtesy copy of this report has been sent [phone].PATIENT WAS FASTINGPERFORMED BY: Inmagic6370 [facility] [id number] (31230) AND (35385) Microalb/Creat Ratio 4376.0 {mg/g_creat} (Abnormal) Range: 0.0-30.0 Microalbumin, Urine 3369.5 ug/mL (Normal) Comments: Results confirmed ondilution. Creatinine, Urine 77.0 mg/dL (Normal) 4-Bzg-483697:50 Renal function Panel Comments: A courtesy copy of this report has been sent [phone].PATIENT WAS FASTINGPERFORMED BY: Inmagic6370 [facility] [id number] Information: FX DR. SANTANA [phone] (30102) Albumin, Serum 3.8 g/dL (Normal) Range: 3.5-4.8 [...] Glucose, Serum 203 mg/dL (Abnormal) Range: 65-99 4-Lwg-103091:50 Magnesium (69843) Comments: A courtesy copy of this report has been sent [phone].PATIENT WAS FASTINGPERFORMED BY: [facility]6370 [facility] [id number] Magnesium, Serum 1.8 mg/dL (Normal) Range: 1.6-2.3 :53 CBC with auto diff (18339) Comments: A courtesy copy of this report has been sent [phone].PATIENT WAS FASTINGPERFORMED BY: [facility]6370 [facility] [id number] Immature Grans (Abs) 0.0 {x10E3/uL} (Normal) Range: [...] {x10E3/uL} (Normal) Range: 3.4-10.8 :53 LIPID PANEL (74137) Comments: A courtesy copy of this report has been sent [phone].PATIENT WAS FASTINGPERFORMED BY: GamervisionAscension Borgess Hospital6370 [facility] [id number] LDL/HDL Ratio 1.2 {ratio_units} (Normal) Range: 0.0-3.2 Comments: LDL/HDL Ratio Men Women 1/2 Avg.Risk 1.0 1.5 Av g.Risk 3.6 3.2 2X Avg.Risk 6.2 5.0 3X Avg.Risk 8.0 6.1 LDL Cholesterol Calc 90 mg/dL (Normal) Range: 0-99 VLDL Cholesterol Cesar 13 mg/dL (Normal) Range: 5-40 HDL Cholesterol 76 mg/dL (Normal) Triglycerides 67 mg/dL (Normal) Range: 0-149 Cholesterol, Total 179 mg/dL (Normal) Range: 100-199 7-Vpc-286701:53 METABOLIC PANEL, COMPREHENSIVE Comments: A courtesy copy of this report has been sent [phone].PATIENT WAS FASTINGPERFORMED BY: [facility]6370 [facility] [id number] (61897) ALT (SGPT) 11 [iU]/L (Normal) Range: 0-32 [...] Glucose, Serum 205 mg/dL (Abnormal) Range: 65-99 93-Dfg-914156:57 HgA1C , Office (92416) HgA1C , Office 7.1 % (Normal) Range: 4.6 - 7.1 :09 LIPID PANEL (15429) Comments: PATIENT WAS FASTINGPERFORMED BY: Inmagic6370 [place] ScientificSaint [facility] Florence [id number] LDL/HDL Ratio 1.3 {ratio_units} (Normal) Range: 0.0-3.2 [...] PANEL, COMPREHENSIVE Comments: PATIENT WAS FASTINGPERFORMED BY: [employer]70 IngresseSandhills Regional [facility] Center [id number] (08251) ALT (SGPT) 12 [iU]/L (Normal) Range: 0-32 [...] (Abnormal) Range: 65-99 :50 HgA1C , Office (98882) HgA1C , Office 6.7 % (Normal) Range: 4.6 - 7.1 :25 Magnesium, Serum 1.9 mg/dL (Normal) Comments: PATIENT WAS FASTINGPERFORMED BY: my6senseRiverview Medical CenterWydokj7593 [facility] [id number] Range: 1.6-2.3 :25 Microalb/Creat Ratio, Randm Ur Comments: PATIENT WAS FASTINGPERFORMED BY: [employer] [facility] Pijqwx0400 [facility] [id number] Microalb/Creat Ratio 2652.0 {mg/g_creat} Range: 0.0-30.0 (Abnormal) Microalbumin, Urine 2482.3 ug/mL (Normal) Comments: Results confirmed ondilution. Creatinine, Urine 93.6 mg/dL (Normal) PTH, Intact 26 pg/mL (Normal) Comments: PATIENT WAS FASTINGPERFORMED BY: CB [facility] Vvewyq8911 [address] RoadDublin [place] [id number] :25 Range: 15-65 :25 Renal Panel (10) Comments: PATIENT WAS FASTINGPERFORMED BY: CB [facility] Pxsxxl6357 [address] RoadDublin [place] [id number] Phosphorus, Serum 4.3 mg/dL (Normal) Range: 2.5-4.5 :25 Thyroxine (T4) Free, Direct, S Comments: PATIENT WAS FASTINGPERFORMED BY: [facility] Nrgaen5627 [address] RoadDublin [place] [id number] T4,Free(Direct) 1.08 ng/dL (Normal) Range: 0.82-1.77 : TSH 2.980 {uIU/mL} Comments: PATIENT WAS FASTINGPERFORMED BY: [facility] Vhedhc3121 [address] RoadDublin [place] [id number] 25 (Normal) Range: 0.450-4.500 : Vitamin D, 25-Hydroxy 37.1 ng/mL (Normal) Comments: PATIENT WAS FASTINGPERFORMED BY: [facility] Zwwovk6770 [address] RoadDublin [place] [id number] 25 Range: 30.0-100.0 Comments: Vitamin D deficiency has been defined by the [place] of[place]icine and an Endocrine Society practice guideline as alevel of serum 25-OH vitamin D less than 20 ng/mL (1,2).The Endocrine Society went on to further define vitamin Dinsufficiency as a level between 21 and 29 ng/mL (2).1. IOM ([place] of [employer]). 2010. Dietary reference intakes for calcium and D. [place]: The National Academies Press.2. Mira MF, Rosette NC, Derek-Coy SWAIN, et al. Evaluation, treatment, and prevention of vitamin D deficiency: an Endocrine Society clinical practice guideline. JCEM. 2010; 96(7):1911-30. :25 CBC W/AUTO DIFF WBC (85962) Comments: PATIENT WAS FASTINGPERFORMED BY: CB [facility] Gnuyki5938 [address] RoadDublin [place] [id number] Immature Grans (Abs) 0.0 {x10E3/uL} (Normal) Range: [...] PANEL, COMPREHENSIVE Comments: PATIENT WAS FASTINGPERFORMED BY: LabCoRiverview Medical CenterUmqqtd5285 [facility] [id number]; non- emergent till apt (30512) ALT (SGPT) 10 [iU]/L (Normal) Range: 0-32 [...] mg/dL (Abnormal) Range: 65-99 :25 LIPID PANEL (32490) Comments: PATIENT WAS FASTINGPERFORMED BY: LabCoRiverview Medical CenterPogfcx3256 [facility] [id number] LDL/HDL Ratio 0.9 {ratio_units} (Normal) Range: 0.0-3.2 Comments: LDL/HDL Ratio Men Women 1/2 Avg.Risk 1.0 1.5 Av g.Risk 3.6 3.2 2X Avg.Risk 6.2 5.0 3X Avg.Risk 8.0 6.1 LDL Cholesterol Calc 65 mg/dL (Normal) Range: 0-99 VLDL Cholesterol Cesar 19 mg/dL (Normal) Range: 5-40 HDL Cholesterol 75 mg/dL (Normal) Triglycerides 93 mg/dL (Normal) Range: 0-149 Cholesterol, Total 159 mg/dL (Normal) Range: 100-199 72-Xxr-515551:54 HgA1C , Office (22392) HgA1C , Office 6.6 % (Normal) Range: 4.6 - 7.1 83-Nrn-729461:1 Magnesium, Serum 2.1 mg/dL (Normal) Comments: PATIENT WAS FASTINGPERFORMED BY: LabCo Jgusiv2545 [address] RoadDublin [place] [id number] 2 Range: 1.6-2.3 84-Dcs-707166:12 Microalb/Creat Ratio, Randm Ur Comments: PATIENT WAS FASTINGPERFORMED BY: [facility] Jngzbz18[address] [place] [id number] Microalb/Creat Ratio 1863.4 {mg/g_creat} (Abnormal) Range: 0.0-30.0 Microalbumin, Urine 1416.2 ug/mL (Normal) Comments: Results confirmed ondilution. Creatinine, Urine 76.0 mg/dL (Normal) 99-Mnm-671125:12 Microscopic Examination Comments: PATIENT WAS FASTINGPERFORMED BY: [facility] Eclmal1664 [address]Dublin [place] [id number] Bacteria None seen (Normal) Mucus Threads Present (Normal) Cast Type Hyaline casts (Normal) Casts Present {/lpf} (Abnormal) Epithelial Cells (non 0-10 {/hpf} Range: 0 - 10 renal) (Normal) RBC 3-10 {/hpf} Range: 0 - 2 (Abnormal) WBC 6-10 {/hpf} Range: 0 - 5 (Abnormal) PTH, Intact 36 pg/mL (Normal) Comments: PATIENT WAS FASTINGPERFORMED BY: [facility] Laizpq3405 [address] [place] [id number] 0:12 Range: 15-65 Vitamin D, 25-Hydroxy 42.9 ng/mL (Normal) Comments: PATIENT WAS FASTINGPERFORMED BY: [facility] Nqrrnv9338 [address] [facility] [place] [id number] 0:12 Range: 30.0-100.0 Comments: Vitamin D deficiency has been defined by the [place] of[place]icine and an Endocrine Society practice guideline as alevel of serum 25-OH vitamin D less than 20 ng/mL (1,2).The Endocrine Society went on to further define vitamin Dinsufficiency as a level between 21 and 29 ng/mL (2).1. IOM ([place] [employer]). 2010. Dietary reference intakes for calcium and D. [place]: The National Academies Press.2. Mira MF, Rosette NC, Tommy SWAIN, et al. Evaluation, treatment, and prevention of vitamin D deficiency: an Endocrine Society clinical practice guideline. JCEM. 2010; 96(7):2211-30. 57-Wdh-948429:12 URINALYSIS, W/ MICRO (29859) Comments: PATIENT WAS FASTINGPERFORMED BY: [employer]70 IngresseSandhills [facility] Center [id number] Microscopic Examination See below: (Normal) Comments: Microscopic was indicated and was performed. Nitrite, Urine Negative (Normal) Urobilinogen,Semi-Qn 0.2 mg/dL (Normal) Range: 0.2-1.0 Bilirubin Negative (Normal) Occult Blood Negative (Normal) Ketones Negative (Normal) Glucose Negative (Normal) Protein 4+ (Abnormal) WBC Esterase Trace (Abnormal) Appearance Clear (Normal) Urine-Color Yellow (Normal) pH 6.0 (Normal) Range: 5.0-7.5 Specific [place] 1.015 (Normal) Range: 1.005-1.030 91-Siu-223974:12 CBC W/AUTO DIFF WBC (90454) Comments: PATIENT WAS FASTINGPERFORMED BY: Inmagic6370 [facility] [id number] Immature Grans (Abs) 0.0 {x10E3/uL} (Normal) Range: [...] 3.77-5.28 WBC 6.2 {x10E3/uL} (Normal) Range: 3.4-10.8 82-Hde-885376:12 METABOLIC PANEL, COMPREHENSIVE Comments: PATIENT WAS FASTINGPERFORMED BY: LabCoRiverview Medical CenterMocxbw7638 [facility] [id number] (71705) ALT (SGPT) 14 [iU]/L (Normal) Range: 0-32 [...] Glucose, Serum 154 mg/dL (Abnormal) Range: 65-99 81-Gru-168138:12 LIPID PANEL (09308) Comments: PATIENT WAS FASTINGPERFORMED BY: JukedeckRiverview Medical CenterHtkdgw0248 [facility] [id number] LDL/HDL Ratio 0.7 {ratio_units} (Normal) Range: 0.0-3.2 Comments: LDL/HDL Ratio Men Women 1/2 Avg.Risk 1.0 1.5 Av g.Risk 3.6 3.2 2X Avg.Risk 6.2 5.0 3X Avg.Risk 8.0 6.1 LDL Cholesterol Calc 49 mg/dL (Normal) Range: 0-99 VLDL Cholesterol Cesar 14 mg/dL (Normal) Range: 5-40 HDL Cholesterol 75 mg/dL (Normal) Triglycerides 68 mg/dL (Normal) Range: 0-149 Cholesterol, Total 138 mg/dL (Normal) Range: 100-199 05-Gxx-198626:50 HgA1C , Office (15638) HgA1C , Office 6.7 % (Normal) Range: 4.6 - 7.1 71-Rhf-545753:36 VITAMIN B-12 (CYANOCOBALAMIN) Comments: PATIENT WAS FASTINGPERFORMED BY: JukedeckRiverview Medical CenterZrrvmt1154 [facility] [id number] (05666) Vitamin B12 802 pg/mL (Normal) Range: 211-946 57-Jua-193058:36 LIPID PANEL (62930) Comments: PATIENT WAS FASTINGPERFORMED BY: JukedeckRiverview Medical CenterFopakq6613 [facility] [id number] LDL/HDL Ratio 0.8 {ratio_units} (Normal) Range: 0.0-3.2 [...] Cholesterol, Total 161 mg/dL (Normal) Range: 100-199 69-Gjp-897533:36 LDH (LD) (LACTATE DEHYDROGENASE) Comments: PATIENT WAS FASTINGPERFORMED BY: JukedeckUNM Psychiatric CenterLvpvbt0252 [facility] [id number] (85195) LDH 217 [iU]/L (Normal) Range: 119-226 55-Onm-112824:36 CBC W/AUTO DIFF WBC (83582) Comments: PATIENT WAS FASTINGPERFORMED BY: Jukedeck Cabebn1350 [facility] [id number] Immature Grans (Abs) 0.0 {x10E3/uL} (Normal) Range: [...] 3.77-5.28 WBC 10.6 {x10E3/uL} (Normal) Range: 3.4-10.8 17-Crv-534493:36 METABOLIC PANEL, COMPREHENSIVE Comments: PATIENT WAS FASTINGPERFORMED BY: LabCoRiverview Medical CenterPsgdar2180 [facility] [id number] (99043) ALT (SGPT) 15 [iU]/L (Normal) Range: 0-32 [...] Glucose, Serum 137 mg/dL (Abnormal) Range: 65-99 80-Ibz-629314:36 TSH (82705) Comments: PATIENT WAS FASTINGPERFORMED BY: [employer]70 [facility] [id number] TSH 0.560 {uIU/mL} (Normal) Range: 0.450-4.500 :02 Renal function Panel (71730) Comments: PATIENT WAS FASTINGPERFORMED BY: [employer]70 [facility] [id number] Albumin, Serum 3.7 g/dL (Normal) Range: 3.5-4.8 [...] 137 mg/dL (Abnormal) Range: 65-99 :02 MAGNESIUM (40585) Comments: PATIENT WAS FASTINGPERFORMED BY: [employer]70 [facility] [id number] Magnesium, Serum 2.2 mg/dL (Normal) Range: 1.6-2.3 :02 MICROALBUMIN: CREATININE RATIO Comments: PATIENT WAS FASTINGPERFORMED BY: JukedeckRiverview Medical CenterCyvuls5756 [facility] [id number] (03486) AND (62817) Microalb/Creat Ratio 2038.7 {mg/g_creat} (Abnormal) Range: 0.0-30.0 Microalbumin, Urine 1223.2 ug/mL (Normal) Comments: Results confirmed ondilution. Creatinine, Urine 60.0 mg/dL (Normal) 39-Yom-48636:02 CBC WITH MANUAL DIFF Comments: PATIENT WAS FASTINGPERFORMED BY: Jukedeck Csibgu3197 [facility] [id number] Information: [id number] (22848) Immature Grans (Abs) 0.0 {x10E3/uL} (Normal) Range: [...] {x10E3/uL} (Normal) Range: 3.4-10.8 :02 HGB A1C (46419) Comments: PATIENT WAS FASTINGPERFORMED BY: [facility]6370 [facility] [id number] Hemoglobin A1c 6.4 % (Abnormal) Range: 4.8-5.6 Comments: . Pre-diabetes: 5.7 - 6.4 Diabetes: >6.4 Glycemic control for adults with diabetes: <7.0 :02 Lipid Panel (58486) Comments: PATIENT WAS FASTINGPERFORMED BY: [place] 3404770 [facility] [id number] LDL/HDL Ratio 1.1 {ratio_units} (Normal) Range: 0.0-3.2 [...] (Normal) Range: 100-199 :03 HgA1C , Office (35477) HgA1C , Office 6.1 % (Normal) Range: 4.6 - 7.1 :24 CBC W/AUTO DIFF WBC Comments: PATIENT WAS FASTINGPERFORMED BY: [place] 3404770 [facility] [id number] Information: [id number] (37959) Immature Grans (Abs) 0.0 {x10E3/uL} (Normal) Range: [...] CREATININE RATIO Comments: PATIENT WAS FASTINGPERFORMED BY: Pushpay [facility] [id number] (43731) AND (51807) Microalb/Creat Ratio 1223.8 {mg/g_creat} (Abnormal) Range: 0.0-30.0 Microalbumin, Urine 1012.1 ug/mL (Abnormal) Range: 0.0-17.0 Comments: Results confirmed ondilution. Creatinine, Urine 82.7 mg/dL (Normal) Range: 15.0-278.0 :24 METABOLIC PANEL, COMPREHENSIVE Comments: PATIENT WAS FASTINGPERFORMED BY: [facility] Centerlin6370 [facility] [id number] (21532) ALT (SGPT) 12 [iU]/L (Normal) Range: 0-32 [...] mg/dL (Abnormal) Range: 65-99 06-Jun-20158:24 LIPID PANEL (70085) Comments: PATIENT WAS FASTINGPERFORMED BY: LabCoRiverview Medical CenterEwxhrp2631 [facility] [id number] LDL/HDL Ratio 1.1 {ratio_units} (Normal) Range: 0.0-3.2 [...] Range: 100-199 :30 CBC W/Diff, Automated Comments: [facility] Lwmrrpfapp57[address]. [place], [place], [address] Absolute Lymph 0.83 {X10_3/ul} (Normal) Range: 0.83-4.51 [...] 4.2-5.4 WBC 4.5 K/mm3 (Normal) Range: 4.4-11.0 94-Frk-11143:30 Hemoglobin A1c Comments: [facility] Cophyeessr3654 Cleo SawyerNorth [place], [place], [address] HGB A1C 6.1 % (Normal) Range: 4.2-6.3 :30 Magnesium Comments: [facility] Vxcozmburf8066 [address] [place], [id number] MG 1.8 mg/dL (Normal) Range: 1.8-2.4 :30 Protein+Creatinine Ratio,Urine Comments: [facility] Cxqgvojgae2323 [address] Sawyeroster [place], [id number] PROT:CRE RATIO 2121 {mg/g_CRE} (Abnormal) Range: 0-200 PROTEIN,UR.RAN. 164.2 mg/dL (Abnormal) UR CREAT 77.40 mg/dL (Normal) :30 Renal Profile Comments: [facility] Qxxeacwrfn8210 [address]o [place]yerNorth [place], [place], [address] CO2 27.0 mmol/L (Normal) Range: 21.0-32.0 CL [...] 126 mg/dLsuggests DIABETES MELLITUS per A.D.A. criteria. 08-Anj-15772:00 24 HR UR Creatinine Clearance Comments: [facility] Ibdlpohmpm6931 [address] [place], [place], [address] CREAT CLEARANCE 24 ml/min (Abnormal) Range: 100-200 URINE CREAT 20.6 mg/dL (Normal) EST GFR - AA 38 mL/min (Abnormal) Comments: GFR Calc EST GFR 31 mL/min (Abnormal) Comments: Non- GFR Calc SERUM CREAT 1.7 mg/dL (Abnormal) Range: 0.6-1.0 UR TOTAL VOLUME 2800 mL (Normal) UR COLLECT TIME 24.0 {HOURS} (Normal) :00 Protein, Urine 24HR Comments: [facility] Gngmrnndui9016 [address] [place], [place], [id number] 24hr UR PROTEIN 1178.8 {mg/24HR} (Abnormal) URINE PROTEIN 42.1 mg/dL (Abnormal) UR TOTAL VOLUME 2800 mL (Normal) UR COLLECT TIME 24.0 {HOURS} (Normal) 4-Fsw-179767:29 Metabolic Panel, Basic Comments: PATIENT NOT FASTINGPERFORMED BY: DogVacay Kacihn6067 [facility] [id number] Information: [id number] (49803) Calcium, Serum 9.3 mg/dL (Normal) Range: 8.7-10.3 [...] Glucose, Serum 102 mg/dL (Abnormal) Range: 65-99 06-Che-82742:39 Metabolic Panel, Basic Comments: tuesday; PATIENT NOT FASTINGPERFORMED BY: [facility] Centerlin6370 [facility] [id number] Information: [id number] (20283) Calcium, Serum 9.0 mg/dL (Normal) Range: 8.7-10.3 [...] (Abnormal) Range: 65-99 :32 HgA1C , Office (68563) HgA1C , Office 6.2 % (Normal) Range: 4.6 - 7.1 :31 Rapid Strep Test, Office (81757) Comments: neg Rapid Strep Test, Office Negative (Normal) :06 THROAT CULTURE (86859) Comments: PATIENT NOT FASTINGPERFORMED BY: Jukedeck Buvlkb9249 [facility] [id number] Information: [id number] Result 1 RRF (Normal) Comments: Routine respiratory luis Upper Respiratory Culture Final report (Normal) :52 TSH (34882) Comments: PATIENT WAS FASTINGPERFORMED BY: GamervisionCoRiverview Medical CenterYddklo1962 [facility] [id number] TSH 2.190 {uIU/mL} (Normal) Range: 0.450-4.500 :52 Vitamin D Hydroxy ([id number]) Comments: PATIENT WAS FASTINGPERFORMED BY: JukedeckUNM Psychiatric [id number] [facility] [id number] Vitamin D, 25-Hydroxy 43.8 ng/mL (Normal) Range: 30.0-100.0 Comments: Vitamin D deficiency has been defined by the [place] [employer] and an Endocrine Society practice guideline as alevel of serum 25-OH vitamin D less than 20 ng/mL (1,2).The Endocrine Society went on to further define vitamin Dinsufficiency as a level between 21 and 29 ng/mL (2).1. IOM ([place] [employer]). 2010. Dietary reference intakes for calcium and D. [place]: The National Academies Press.2. Mira MF, Rosette LOPEZ, Tommy SWAIN, et al. Evaluation, treatment, and prevention of vitamin D deficiency: an Endocrine Society clinical practice guideline. JCEM. 2010; 96(7):1911-30. :52 LIPID PANEL (30678) Comments: PATIENT WAS FASTINGPERFORMED BY: [employer]70 [facility] [id number] LDL/HDL Ratio 1.3 {ratio_units} (Normal) Range: 0.0-3.2 [...] auto diff Comments: PATIENT WAS FASTINGPERFORMED BY: GamervisionCoUReservYcwqju4095 [facility] [id number] Information: [id number] (35588) Immature Grans (Abs) 0.0 {x10E3/uL} (Normal) Range: [...] PANEL, COMPREHENSIVE Comments: PATIENT WAS FASTINGPERFORMED BY: LabCoRiverview Medical CenterDhlyao3986 [facility] [id number] (88189) ALT (SGPT) 19 [iU]/L (Normal) Range: 0-32 [...] Glucose, Serum 127 mg/dL (Abnormal) Range: 65-99 9-Kna-077318:08 HgA1C , Office (19275) HgA1C , Office 6.4 % (Normal) Range: 4.6 - 7.1 8-Vao-161260:00 Creatinine Clearance Comments: PATIENT NOT FASTINGPERFORMED BY: [facility] Centerlin6370 [facility] [id number] Information: [id number] S TART Creatinine Clearance 33 mL/min (Abnormal) Range: 88-128 Comments: The above range is based on 1.73 square meter average body surfacearea. Creatinine, Ur 24hr 642.0 {mg/24_hr} (Abnormal) Range: 800.0-1800.0 Creatinine, Urine 34.7 mg/dL (Normal) Range: 15.0-278.0 eGFR If Africn Am 43 mL/min/1.73 (Abnormal) eGFR If NonAfricn Am 37 mL/min/1.73 (Abnormal) Creatinine, Serum 1.37 mg/dL (Abnormal) Range: 0.57-1.00 7-Nxx-478410:00 Protein Total, Qn, 24-Hr Comments: PATIENT NOT FASTINGPERFORMED BY: [facility] Centerlin6370 [facility] [id number] Urine Prot,24hr calculated 1309.8 {mg/24_hr} (Abnormal) Range: 30.0-150.0 Protein,Total,Urine 70.8 mg/dL (Abnormal) Range: 0.0-15.0 :01 CBC W/Diff, Automated Comments: Test performed at:[facility] [address] [place] [address] Absolute Neut 3.1 {X10_3/uL} (Normal) [...] Range: 4.4-11.0 :01 Magnesium Comments: Test performed at:[facility] I[address]hyjfib[address] [place] [address] MG 2.0 mg/dL (Normal) Range: 1.8-2.4 :01 Protein+Creatinine Ratio,Urine Comments: Test performed at:[facility] [address] [place] [address] PROT:CRE RATIO 2232 {mg/g_CRE} (Abnormal) Range: 0-200 PROTEIN,UR.RAN. 160.3 mg/dL (Abnormal) UR CREAT 71.8 mg/dL (Normal) :01 Renal Profile Comments: Test performed at:[facility] [address] [place] [address] CO2 32.0 mmol/L (Normal) Range: 21.0-32.0 CL [...] mg/dL (Normal) Range: 70-110 :08 LIPID PANEL (82959) Comments: PATIENT WAS FASTINGPERFORMED BY: LabCoRiverview Medical CenterRzdset0033 [facility] [id number] LDL/HDL Ratio 1.0 {ratio_units} (Normal) Range: 0.0-3.2 [...] PANEL, Comments: PATIENT WAS FASTINGPERFORMED BY: EVE LabCoUNM Psychiatric CenterKbngck7709 [facility] [id number] Information: [id number] COMPREHENSIVE (90454) ALT (SGPT) 29 [iU]/L (Normal) Range: 0-32 [...] (Abnormal) Range: 65-99 :59 HgA1C , Office (40739) HgA1C , Office 6.5 % (Normal) Range: 4.6 - 7.1 :54 CBC W/AUTO DIFF WBC Comments: PATIENT WAS FASTINGPERFORMED BY: EVE JukedeckRiverview Medical CenterJjwvyh6223 [facility] [id number] Information: [id number] (93131) Immature Grans (Abs) 0.0 {x10E3/uL} (Normal) Range: [...] PANEL, COMPREHENSIVE Comments: PATIENT WAS FASTINGPERFORMED BY: [facility]isionAsc[facility] Hospital6370 [facility] [id number]; non- emergent till apt (18310) ALT (SGPT) 13 [iU]/L (Normal) Range: 0-32 [...] Glucose, Serum 142 mg/dL (Abnormal) Range: 65-99 74-Rzk-03200:54 LIPID PANEL (82460) Comments: PATIENT WAS FASTINGPERFORMED BY: LabCoRiverview Medical CenterQgzuiq5754 [facility] [id number] LDL/HDL Ratio 1.1 {ratio_units} (Normal) Range: 0.0-3.2 [...] Cholesterol, Total 140 mg/dL (Normal) Range: 100-199 9-Cjw-076698:29 HgA1C , Office (15413) HgA1C , Office 6.6 % (Normal) Range: 4.6 - 7.1 :12 CBC W/Diff, Automated Comments: Test performed at:[facility] [address] [place], [place] [id number] ; handled by Dr. Santana Absolute Lymph [...] Range: 4.4-11.0 :12 Magnesium Comments: Test performed at:[facility] [address] [place] [address] MG 2.0 mg/dL (Normal) Range: 1.8-2.4 09-Zfl-92276:12 Microalb:Creat Ratio,Random UR Comments: Test performed at:[facility] Otkmbsvnwz5427 [facility] [place] [address] ; Dr. Angelo LING:CREAT 1483.0 {mg/g_CRE} (Abnormal) MICROALBUMIN,UR 918.0 mg/L (Normal) UR CREAT 61.9 mg/dL (Normal) 19-Pqs-95246:12 Renal Profile Comments: Test performed at:[facility] Dhpholfhnt6432 [facility] [place] [address] CO2 29.0 mmol/L (Normal) Range: 21.0-32.0 CL [...] 126 mg/dLsuggests DIABETES MELLITUS per A.D.A. criteria. 60-Qgq-859073:20 LIPID PANEL (03693) Comments: PATIENT WAS FASTINGPERFORMED BY: LabCo Ktubjo2702 [facility] [id number] LDL/HDL Ratio 1.0 {ratio_units} (Normal) Range: 0.0-3.2 [...] Cholesterol, Total 151 mg/dL (Normal) Range: 100-199 28-Fdd-356912:20 METABOLIC PANEL, Comments: PATIENT WAS FASTINGPERFORMED BY: LabCoRiverview Medical CenterVfkaag0779 [facility] [id number] Information: [id number] COMPREHENSIVE (30392) ALT (SGPT) 16 [iU]/L (Normal) Range: 0-32 [...] Glucose, Serum 148 mg/dL (Abnormal) Range: 65-99 92-Yjg-827052:21 CREATININE CLEARANCE Comments: PATIENT WAS FASTINGPERFORMED BY: [facility]6370 [facility] [id number] Information: [id number] START 04/02/14@9AM FINISH 04/03/14 6:00 AM (84124) Creatinine Clearance 42 mL/min (Abnormal) Range: 88-128 Comments: The above range is based on 1.73 square meter average body surfacearea. Creatinine, Ur 24hr 812.3 {mg/24_hr} (Normal) Range: 800.0-1800.0 Creatinine, Urine 28.5 mg/dL (Normal) Range: 15.0-278.0 eGFR If Africn Am 45 mL/min/1.73 (Abnormal) eGFR If NonAfricn Am 39 mL/min/1.73 (Abnormal) Creatinine, Serum 1.33 mg/dL (Abnormal) Range: 0.57-1.00 80-Uzv-079671:21 Total Protein,24 Hour Urine Comments: PATIENT WAS FASTINGPERFORMED BY: [facility]ervisionAsc[facility] Hospital6370 [facility] [id number] (54718) Prot,24hr calculated 1559.0 {mg/24_hr} (Abnormal) Range: 30.0-150.0 Protein,Total,Urine 54.7 mg/dL (Abnormal) Range: 0.0-15.0 :57 LIPID PANEL (27886) Comments: PATIENT WAS FASTINGPERFORMED BY: JukedeckRiverview Medical CenterOsckil1836 [facility] [id number] LDL/HDL Ratio 1.1 {ratio_units} (Normal) Range: 0.0-3.2 [...] MANUAL DIFF Comments: PATIENT WAS FASTINGPERFORMED BY: Jukedeck Ciknzg8157 [facility] [id number] Information: [id number] (08465) Immature Grans (Abs) 0.0 {x10E3/uL} (Normal) Range: [...] PANEL, COMPREHENSIVE Comments: PATIENT WAS FASTINGPERFORMED BY: Jukedeck Hctejo1099 [facility] [id number] (86647) ALT (SGPT) 10 [iU]/L (Normal) Range: 0-32 [...] Units: mg/dL AdultPerformed at: CB - [facility] Syqxfb3964 [place], [place] [id number] Director: Yousuf Bernardo PhD, Phone: [phone] C4 37 (Abnormal) Range: 9-36 0 [...] 4.2-5.4 WBC 4.6 K/mm3 (Normal) Range: 4.4-11.0 58-Nsa-62119:00 CMP GAP 3 (Abnormal) Range: 5-15 CO2 [...] 75.6 mg/dL (Abnormal) CREU 49.3 mg/dL (Normal) 34-Xuq-28492:21 CBC WITH MANUAL DIFF Comments: PATIENT WAS FASTINGPERFORMED BY: [facility] Dahtww1666 [facility] [id number] Information: [id number] (34749) Immature Grans (Abs) 0.0 {x10E3/uL} (Normal) Range: [...] 3.77-5.28 WBC 4.5 {x10E3/uL} (Normal) Range: 3.4-10.8 78-Zat-80036:21 METABOLIC PANEL, COMPREHENSIVE Comments: PATIENT WAS FASTINGPERFORMED BY: [facility]6370 [facility] [id number] (14236) ALT (SGPT) 16 [iU]/L (Normal) Range: 0-32 [...] Glucose, Serum 132 mg/dL (Abnormal) Range: 65-99 15-Vdx-410614:53 CREATININE CLEARANCE Comments: PATIENT NOT FASTINGPERFORMED BY: EVE [employer] [facility] [id number] Information: [id number] START 10/30/13@8AM F INISH 10/31/13@8AM 2650ML (64901) Creatinine Clearance 44 mL/min (Abnormal) Range: 88-128 [...] Hour Urine Comments: PATIENT NOT FASTINGPERFORMED BY: [employer]70 [facility] [id number] (44340) Prot,24hr calculated 3458.3 {mg/24_hr} (Abnormal) Range: 30.0-150.0 Protein,Total,Urine 130.5 mg/dL (Abnormal) Range: 0.0-15.0 59-Jnb-544360:31 HgA1C , Office (89421) HgA1C , Office 6.4 % (Normal) Range: 4.6 - 7.1 19-Hbc-809719:27 Microscopic Examination Comments: PATIENT WAS FASTINGPERFORMED BY: EVE [employer] [facility] [id number] Bacteria Few (Normal) Mucus Threads Present (Normal) Epithelial Cells (non renal) 0-10 {/hpf} (Normal) Range: 0 - 10 RBC 3-10 {/hpf} (Abnormal) Range: 0 - 2 WBC 6-10 {/hpf} (Abnormal) Range: 0 - 5 :32 LIPID PANEL (22053) Comments: PATIENT WAS FASTINGPERFORMED BY: JukedeckRiverview Medical CenterRtiiik5970 [facility] [id number] LDL/HDL Ratio 1.0 {ratio_units} (Normal) Range: 0.0-3.2 [...] CREATININE RATIO Comments: PATIENT WAS FASTINGPERFORMED BY: JukedeckRiverview Medical CenterNiwuje1225 [facility] [id number] (57841) AND (67017) Microalb/Creat Ratio 1998.9 {mg/g_creat} (Abnormal) Range: 0.0-30.0 Creatinine, Urine 73.4 mg/dL (Normal) Range: 15.0-278.0 Microalbumin, Urine 1467.2 ug/mL (Abnormal) Range: 0.0-17.0 :32 URINALYSIS, W/ MICRO (30272) Comments: PATIENT WAS FASTINGPERFORMED BY: JukedeckRiverview Medical CenterLqwrwd8700 [facility] [id number] Microscopic Examination See below: (Normal) Comments: Microscopic was indicated and was performed. Nitrite, Urine Negative (Normal) Urobilinogen,Semi-Qn 0.2 mg/dL (Normal) Range: 0.0-1.9 Bilirubin Negative (Normal) Occult Blood Trace (Abnormal) Ketones Negative (Normal) Glucose Negative (Normal) Protein 3+ (Abnormal) WBC Esterase Trace (Abnormal) Appearance Clear (Normal) Urine-Color Yellow (Normal) pH 6.5 (Normal) Range: 5.0-7.5 Specific [place] 1.015 (Normal) Range: 1.005-1.030 :32 CBC WITH MANUAL DIFF Comments: PATIENT WAS FASTINGPERFORMED BY: JukedeckRiverview Medical CenterJttofn8082 [facility] [id number] Information: [id number] (61799) Immature Grans (Abs) 0.0 {x10E3/uL} (Normal) Range: [...] PANEL, COMPREHENSIVE Comments: PATIENT WAS FASTINGPERFORMED BY: [facility]isionAsc[facility] Hospital6370 [facility] [id number] (62453) ALT (SGPT) 16 [iU]/L (Normal) Range: 0-32 [...] Glucose, Serum 135 mg/dL (Abnormal) Range: 65-99 24-Ebp-55654:32 VITAMIN B-12 (CYANOCOBALAMIN) Comments: PATIENT WAS FASTINGPERFORMED BY: EVE JukedeckRiverview Medical CenterAehnhk2204 [facility] [id number] (76084) Vitamin B12 >1999 pg/mL (Abnormal) Range: 211-946 51-Tjk-008060:01 HgA1C , Office (56505) HgA1C , Office 6.4 % (Normal) Range: 4.6 - 7.1 :37 METABOLIC PANEL, COMPREHENSIVE Comments: PATIENT WAS FASTINGPERFORMED BY: JukedeckUNM Psychiatric CenterBfoowv0702 [facility] [id number] (31742) ALT (SGPT) 12 [iU]/L (Normal) Range: 0-32 [...] Glucose, Serum 130 mg/dL (Abnormal) Range: 65-99 33-Wcu-21888:37 Vitamin D Hydroxy (18892) Comments: PATIENT WAS FASTINGPERFORMED BY: [facility] Yduqhv3589 [facility] [id number] Vitamin D, 25-Hydroxy 47.4 ng/mL (Normal) Range: 30.0-100.0 Comments: Vitamin D deficiency has been defined by the [place] of[place] and an Endocrine Society practice guideline as alevel of serum 25-OH vitamin D less than 20 ng/mL (1,2).The Endocrine Society went on to further define vitamin Dinsufficiency as a level between 21 and 29 ng/mL (2).1. IOM ([place] of [employer]). 2010. Dietary reference intakes for calcium and D. [place]: The National Academies Press.2. Mira MF, Rosette LOPEZ, Tommy SWAIN, et al. Evaluation, treatment, and prevention of vitamin D deficiency: an Endocrine Society clinical practice guideline. JCEM. 2010; 96(7):1911-30. :37 LIPID PANEL (67622) Comments: PATIENT WAS FASTINGPERFORMED BY: [employer]com6370 [facility] [id number] LDL/HDL Ratio 1.2 {ratio_units} (Normal) Range: 0.0-3.2 [...] MANUAL DIFF Comments: PATIENT WAS FASTINGPERFORMED BY: Jukedeck Ezxurg2041 [facility] [id number] Information: [id number] (73350) Immature Grans (Abs) 0.0 {x10E3/uL} (Normal) Range: [...] Qn, 24-Hr Comments: PATIENT NOT FASTINGPERFORMED BY: Jukedeck Dgopqa7630 [facility] [id number] Information: ADD [id number] AND DRAW FEE 99 6660 VOLUME 2600 164LBS 5' '3 Urine Prot,24hr calculated 920.4 {mg/24_hr} Range: 30.0-150.0 (Abnormal) Protein,Total,Urine 35.4 mg/dL Range: 0.0-15.0 (Abnormal) : Written Authorization WAR (Normal) Comments: PATIENT NOT FASTINGPERFORMED BY: Jukedeck Bbphhr9044 [facility] [id number] Comments: Written Authorization Received.Authorization received from Chiqui BRICEÑO LPN [id number] by Marleen Sharma :52 Metabolic Panel, Basic Comments: PATIENT NOT FASTINGPERFORMED BY: JukedeckMichelle [place] 3688270 [facility] [id number] Information: ADD [id number] AND DRAW FEE 99 6660 VOLUME 2600 164LBS 5' '3 (42224) Calcium, Serum 9.7 mg/dL (Normal) Range: 8.6-10.2 [...] mg/dL (Abnormal) Range: 65-99 :52 CREATININE CLEARANCE (78359) Comments: PATIENT NOT FASTINGPERFORMED BY: [facility]TipAngel [facility] [id number] Creatinine Clearance 46 mL/min (Abnormal) Range: 88-128 Comments: The above range is based on 1.73 square meter average body surfacearea. Creatinine, Ur 24hr 899.6 {mg/24_hr} (Normal) Range: 800.0-1800.0 Creatinine, Urine 34.6 mg/dL (Normal) Range: 15.0-278.0 :52 24 hour urine for Protein Comments: PATIENT NOT FASTINGPERFORMED BY: [facility]IKTIVOSandhills Regional [facility] Center [id number] (34548) Microalb/Creat Ratio 695.4 {mg/g_creat} (Abnormal) Range: 0.0-30.0 Microalbumin, Urine 240.6 ug/mL (Abnormal) Range: 0.0-17.0 :13 HgA1C , Office (15544) HgA1C , Office 6.3 % (Normal) Range: 4.6 - 7.1 :01 Blood Glucose , Office (29328) Blood Glucose , Office 162 (Normal) :02 Microscopic Examination Comments: PATIENT NOT FASTINGPERFORMED BY: [employer] [place] [facility] [id number] Bacteria Few (Normal) Mucus Threads Present (Normal) Epithelial Cells (non renal) 0-10 {/hpf} (Normal) Range: 0 - 10 RBC 0-3 {/hpf} (Normal) Range: 0 - 3 WBC 0-5 {/hpf} (Normal) Range: 0 - 5 74-Pce-040364:43 ABDOMEN/PELVIS WITH CONTRAST Radiology Report See Note [...] Hebert M.D.October 19, 2012 at 2:42:14 PM [id number] Signed GP/GP If you are the referring physician and would like to consult [facility] theradiologist who provided this interpretation, please contact Yasmany Pond at [phone]. If this radiologist is unavailable, youwill be directed to another radiologist to assist. If y ou are a patient with a question regarding this report, pleasecontactyour referring physician directly. Professional Interpretation Provided By: [employer], Phone , These documents contain legally protected [...] 10/19/12 1444 Sign by: Misael Hebert MD 50-Kjv-308088:59 TSH (84249) Comments: PATIENT WAS FASTINGPERFORMED BY: [facility] Musefn4238 [facility] [id number] TSH 1.230 {uIU/mL} (Normal) Range: 0.450-4.500 52-Uma-586466:59 LIPID PANEL (17492) Comments: PATIENT WAS FASTINGPERFORMED BY: [facility] Eekcvy4851 [facility] [id number] LDL/HDL Ratio 0.5 {ratio_units} (Normal) Range: 0.0-3.2 LDL Cholesterol Calc 47 mg/dL (Normal) Range: 0-99 Cholesterol, Total 149 mg/dL (Normal) Range: 100-199 HDL Cholesterol 91 mg/dL (Normal) Comments: According to ATP-III Guidelines, HDL-C >59 mg/dL is considered anegative risk factor for CHD. Triglycerides 57 mg/dL (Normal) Range: 0-149 VLDL Cholesterol Cesar 11 mg/dL (Normal) Range: 5-40 81-Gow-713082:02 URINALYSIS, W/ MICRO Comments: PATIENT NOT FASTINGPERFORMED BY: JukedeckMichelle [place] 3688270 [facility] [id number] Information: [id number] (01644) Microscopic Examination See below: (Normal) Nitrite, Urine Negative (Normal) Bilirubin Negative (Normal) Urobilinogen,Semi-Qn 0.2 mg/dL (Normal) Range: 0.0-1.9 Occult Blood Negative (Normal) Ketones Negative (Normal) Glucose Negative (Normal) Protein 3+ (Abnormal) WBC Esterase Negative (Normal) Appearance Clear (Normal) Urine-Color Yellow (Normal) pH 5.5 (Normal) Range: 5.0-7.5 Specific [place] 1.015 (Normal) Range: 1.005-1.030 82-Cbd-587110:59 CBC WITH MANUAL DIFF Comments: PATIENT WAS FASTINGPERFORMED BY: [facility]6370 [facility] [id number] Information: [id number] (40194) Immature Grans (Abs) 0.0 {x10E3/uL} (Normal) Range: [...] 3.77-5.28 WBC 4.8 {x10E3/uL} (Normal) Range: 3.4-10.8 38-Mcp-135262:59 METABOLIC PANEL, COMPREHENSIVE Comments: PATIENT WAS FASTINGPERFORMED BY: [facility]Asc[facility]6370 [facility] [id number] (73370) ALT (SGPT) 14 [iU]/L (Normal) Range: 0-32 [...] Glucose, Serum 104 mg/dL (Abnormal) Range: 65-99 6-Slm-824335:37 HgA1C , Office (32480) HgA1C , Office 6.0 % (Normal) Range: 4.6 - 7.1 4-Feo-916514:31 CRE CREAT 1.3 mg/dL (Abnormal) Range: 0.6-1.0 [...] Galan M.D.August 09, 2012 at 2:38:03 PM [id number] Signed PV/PV If you are the referring physician and would like to consult with theradiologist who provided this interpretation, please contact Donna Burnett M.D. at [phone]. If this radiologist is unavailable, youwillbe directed to another radiologist to assist. If you are a patient with a question regarding this report, pleasecontactyour referring physician evelyne cowan. Professional Interpretation Provided By: [employer], Phone , These documents contain legally protected [...] 08/09/12 1441 Sign by: Donna Martin MD 43-Eyj-191687:31 CBC with manual diff Comments: PATIENT NOT FASTINGPERFORMED BY: LabCoRiverview Medical CenterEkmcrz1594 [facility] [id number] Information: [id number] (49204) Immature Grans (Abs) 0.0 {x10E3/uL} (Normal) Range: [...] Panel, Comprehensive Comments: PATIENT NOT FASTINGPERFORMED BY: [employer] [facility] [id number] (26007) ALT (SGPT) 19 [iU]/L (Normal) Range: 0-32 [...] mg/dL (Abnormal) Range: 65-99 :31 LIPID PANEL (23509) Comments: PATIENT WAS FASTINGPERFORMED BY: JukedeckRiverview Medical CenterDvwlip1544 [facility] [id number] LDL/HDL Ratio 0.8 {ratio_units} (Normal) Range: 0.0-3.2 [...] MANUAL DIFF Comments: PATIENT WAS FASTINGPERFORMED BY: LabCoRiverview Medical CenterLdbztx9828 [facility] [id number] Information: [id number] (04588) Immature Grans (Abs) 0.0 {x10E3/uL} (Normal) Range: [...] COMPREHENSIVE Comments: PATIENT WAS FASTINGPERFORMED BY: [facility] Ykawgg7115 [facility] [id number] (01970) ALT (SGPT) 22 [iU]/L (Normal) Range: 0-32 [...] (Abnormal) Range: 65-99 :45 HgA1C , Office (07029) HgA1C , Office 6.1 % (Normal) Range: 4.6 - 7.1 23-Dlt-110791:16 CRE CREAT 1.1 mg/dL (Abnormal) Range: 0.6-1.0 70-Hxi-19658:00 BRAIN W/WO CONTRAST Radiology Report See Note [...] Galan M.D.February 02, 2012 at 5:10:18 PM [id number] Signed PV/PV If you are the referring physician and w ould like to consult with theradiologist who provided this interpretation, please contact Donna Burnett M.D. at [phone]. If this radiologist is unavailable, youwillbe directed to another radiol ogist to assist. If you are a patient with a question regarding this report, pleasecontactyour referring physician directly. Professional Interpretation Provided By: Reta, Phone ,Fa x [phone] These documents contain legally protected and confidential [...] 02/02/121713 S ign by: Donna Martin MD 17-Oxx-513957:16 DEXA BONE DENSITY STUDY (HP) Radiology Report [...] Coronel M.D.January 20, 2012 at 2:43:46 PM [phone] Signed KERA/KERA If you ar e the [...] 01/20/12 1447 Sign by: David Coronel MD 02-Gul-427775:15 BILAT SCRN DIGITAL & CAD Radiology Report [...] Coronel M.D.January 20, 2012 at 1:20:11 PM [id number] Signed KERA/KERA If you are the referring physician and would like to consult with theradiologist who provided this interpretation, please contact Yasmany Parnell at . If this radiologist is unavailable,youwill be directed to another radiologist to assist. If you are a patient with a question regarding this report, pleasecontactyour referring physician directly. Professional Interpretation Provided By: [employer], Phone , These documents contain legally protected [...] 01/20/12 1324 Sign by: David Coronel MD 5-Gkr-653024:56 PELVIC (NON ) Radiology Report See Note [...] Vuong M.D.January 10, 2012 at 8:39:09 PM [id number] Signed JL/JL If you are the referring physician and would like to consult with theradiologist who provided this inte rpretation, please contact Radha Vuong M.D. at [phone]. If this radiologist is unavailable, you will bedirected to another radiologist to assist. If you are a patient with a question regarding this r eport, pleasecontactyour referring physician directly. Professional Interpretation Provided By: [employer], Phone , PROCEDURE: ULTRASOUND OF THE FEMALE [...] Vuong M.D.January 10, 2012 at 8:40:07 PM [id number] Signed JL/JOHNNY If you are the referring physician and would like to consult with theradiologist who provided this interpretation, please contact Radha Vuong M.D. at [phone]. If this radiologist is unavailable, you will bedirected to another radiologist to assist. If you are a patient with a question regarding this report, pleasecontactyour referring ysician directly. Professional Interpretation Provided By: Photos [employer], Phone , These documents contain legally protected [...] Dictated on 01/10/12 1309 by Nahum VUONG MDsh[facility] ribed on 01/11/12 1113 by ITS IMPORTSign by RADHA VUONG MD on 01/11/12 1114 Sign by: RADHA VUONG MD 84-Mqv-10450:35 MICROALBUMIN: CREATININE RATIO Comments: PATIENT WAS FASTINGPERFORMED BY: [facility]6370 [facility] [id number] (78167) AND (71430) Microalb/Creat Ratio 829.4 {mg/g_creat} (Abnormal) Range: 0.0-30.0 Microalbumin, Urine 437.1 ug/mL (Abnormal) Range: 0.0-17.0 Creatinine, Urine 52.7 mg/dL (Normal) Range: 15.0-278.0 :35 CBC WITH MANUAL DIFF Comments: PATIENT WAS FASTINGPERFORMED BY: [facility]6370 [facility] [id number] Information: [id number] (80231) Immature Grans (Abs) 0.0 {x10E3/uL} (Normal) Range: [...] PANEL, COMPREHENSIVE Comments: PATIENT WAS FASTINGPERFORMED BY: [employer] [facility] [id number] (84723) ALT (SGPT) 15 [iU]/L (Normal) Range: 0-32 [...] mg/dL (Abnormal) Range: 65-99 :35 LIPID PANEL (75643) Comments: PATIENT WAS FASTINGPERFORMED BY: JukedeckUNM Psychiatric CenterJzyshn4360 [facility] [id number] LDL/HDL Ratio 0.9 {ratio_units} (Normal) Range: 0.0-3.2 LDL Cholesterol Calc 72 mg/dL (Normal) Range: 0-99 HDL Cholesterol 83 mg/dL (Normal) Comments: According to ATP-III Guidelines, HDL-C >59 mg/dL is considered anegative risk factor for CHD. VLDL Cholesterol Cesar 18 mg/dL (Normal) Range: 5-40 Triglycerides 90 mg/dL (Normal) Range: 0-149 Cholesterol, Total 173 mg/dL (Normal) Range: 100-199 :15 HgA1C , Office (36436) HgA1C , Office 6.2 % (Normal) Range: 4.6 - 7.1 :30 CBC WITH MANUAL DIFF Comments: PATIENT WAS FASTINGPERFORMED BY: [facility] [id number] Information: [id number] ([id number]) Immature Grans (Abs) 0.0 {x10E3/uL} (Normal) Range: [...] PANEL, COMPREHENSIVE Comments: PATIENT WAS FASTINGPERFORMED BY: [facility] [id number] ([id number]) ALT (SGPT) 19 [iU]/L (Normal) Range: 0-40 [...] mg/dL (Abnormal) Range: 65-99 :30 LIPID PANEL (74777) Comments: PATIENT WAS FASTINGPERFORMED BY: [employer] Technologiesin [place] [id number] LDL/HDL Ratio 0.9 {ratio_units} (Normal) Range: 0.0-3.2 [...] note reference interval change :48 Rapid Flu (79931 x 2) Influenza A Ag negative (Normal) [...] redmond M.D.November 05, 2011 at 3:25:08 PM [id number] Signed GP/GP If you are the referring physician and would like to consult with theradiologist who provided this interpretation, please contact Yasmany Pond at [phone]. If this radiologist is unavailable, youwill be directed to another radiologist to assist. If you are a patient with a question regarding this report, ple asecontactyour referring physician directly. Professional Interpretation Provided By: [employer], Phone , These documents contain legally protected [...] redmond M.D.November 05, 2011 at 3:25:08 PM [id number] Signed GP/GP If you are the referring physician and would like to consult with theradiologist who provided this interpretation, please contact Yasmany Pond at [phone]. If this radiologist is unavailable, youwill be directed to another radiologist to assist. If you are a patient with a question regarding this report, ple asecontactyour referring physician directly. Professional Interpretation Provided By: [employer], Phone , These documents contain legally protected [...] 11/05/11 1552 Sign by: Misael Hebert MD 50-Wvz-256736:20 METABOLIC PANEL, Comments: PATIENT WAS FASTINGPERFORMED BY: [facility]6370 [facility] [id number] Information: T38515,2ND ORDER NO DRAW F EE COMPREHENSIVE (54284) ALT (SGPT) 31 [iU]/L (Normal) Range: 0-40 [...] Creatinine Clearance Comments: PATIENT WAS FASTINGPERFORMED BY: [employer]70 [facility]seSand[facility] [id number] Information: 10/30@6AM 10/31@730AM Creatinine Clearance 58 mL/min [...] Qn, 24-Hr Comments: PATIENT WAS FASTINGPERFORMED BY: [employer]6370 [facility] [id number] Urine Prot,24hr calculated 1023.8 {mg/24_hr} (Abnormal) Range: 30.0-150.0 Protein,Total,Urine 52.5 mg/dL (Abnormal) Range: 0.0-15.0 :04 HgA1C , Office (07470) HgA1C , Office 6.1 % (Normal) Range: [...] regarding this repor t, please call our [id number] line @ Dictated on 07/27/11 1040 by GAYE PEREZ MD RTranscribed on 07/28/11 122 by ITS IMPORTSign by GAYE PEREZ MD on 07/28/111224 Sign by: GAYE PEREZ MD 38-Kqc-97361:54 Vitamin D Hydroxy (46770) Comments: PATIENT WAS FASTINGPERFORMED BY: [facility] [id number] Vitamin D, 25-Hydroxy 48.8 ng/mL (Normal) Range: 30.0-100.0 Comments: Vitamin D deficiency has been defined by the [place] of[place]icine and an Endocrine Society practice guideline as alevel of serum 25-OH vitamin D less than 20 ng/mL (1,2).The Endocrine Society went on to further define vitamin Dinsufficiency as a level between 21 and 29 ng/mL (2).1. IOM ([place] of [employer]). 2010. Dietary reference intakes for calcium and D. [place]: The National Academies Press.2. Mira MF, [place], Tommy SWAIN, et al. Evaluation, treatment, and prevention of vitamin D deficiency: an Endocrine Society clinical practice guideline. JCEM. 2010; 96(7):1911-30. :54 LIPID PANEL (05676) Comments: PATIENT WAS FASTINGPERFORMED BY: JukedeckRiverview Medical CenterTzzekw2642 [facility] [id number] LDL/HDL Ratio 1.0 {ratio_units} (Normal) Range: 0.0-3.2 [...] MANUAL DIFF Comments: PATIENT WAS FASTINGPERFORMED BY: JukedeckRiverview Medical CenterXvtipz7473 [facility] [id number] Information: ADD [id number] AND DRAW FEE 99 5601 (88721) Immature Grans (Abs) 0.0 {x10E3/uL} (Normal) Range: [...] PANEL, COMPREHENSIVE Comments: PATIENT WAS FASTINGPERFORMED BY: LabCoRiverview Medical CenterXleyzu4924 [facility] [id number] (99900) ALT (SGPT) 48 [iU]/L (Abnormal) Range: 0-40 [...] (Abnormal) Range: 65-99 :18 HgA1C , Office (34257) HgA1C , Office 6.1 % (Normal) Range: 4.6 - 7.1 :18 Blood Glucose , Office (34517) Blood Glucose , Office 103 (Normal) 11-Xwe-98459:00 ABDOMEN WITH AND W/O CONTRAST Radiology Report [...] radiologist regarding this report, please call our [id number] line @ Dictated on 03/18/11 1715 by Serge Pugh MDranscribed on 03/22/11 1401 by ITS IMPORTSign by Jeanette Hill MD on 03/22/11 1402 Sign by: Jeanette Pugh MD 59-Jnf-696536:29 SERUM CRE & GFR CREAT,SERUM 1.1 mg/dL (Abnormal) Range: 0.6-1.0 21-Ebm-50598:00 BRAIN W/WO CONTRAST Radiology Report See Note [...] seen in the right frontal white matter windows consultant ior to themasswithout interval change. The [...] 03/02/11 1730 Sign by: Donna Martin MD 81-Xqe-39237:00 UPPER EXT. JOINT ONLY(ROUTINE) Radiology Report See [...] on 03/04/11 103 Sign by: Ankur Duncan 45-Hzu-583476:08 SHOULDER,MIN 2 VIEWS Radiology Report See Note [...] on 01/29/111715 Sign by: Aakash Barbosa MD 21-Oni-77657:44 ABDOMEN/PELVIS WITH CONTRAST Radiology Report See Note [...] 02/01/11 1021 Sign by: ALEJANDRO DRUMMOND DO 09-Icz-053816:57 SINUS/FACIAL BONE Radiology Report See Note (Normal) [...] on 01/19/11 1448 Sign by: Singh MANN,Misael 60-Zpa-51102:00 BRAIN W/WO CONTRAST Radiology Report See Note [...] addition, there is a small region of ewjoiyqzcJ3vrtmoupxlr along the anterior margin of the mass, [...] on 01/19/111650 Sign by: GAYE PEREZ MD 12-Dqp-24517:00 BRAIN/HEAD W/WO CONTRAST Radiology Report See Note [...] 01/19/11 1447 Sign by: Misael Hebert MD 24-Qfm-126527:08 BILAT SCRN DIGITAL & CAD Radiology Report [...] CREATININE RATIO Comments: PATIENT NOT FASTINGPERFORMED BY: LabCoRiverview Medical CenterBfsqwx8153 [facility] [id number] (42690) AND (42371) Microalb/Creat Ratio 1028.4 {mg/g_creat} (Abnormal) Range: 0.0-30.0 Microalbumin, Urine 1341.0 ug/mL (Abnormal) Range: 0.0-17.0 Creatinine, Urine 130.4 mg/dL (Normal) Range: 15.0-278.0 :20 CBC WITH MANUAL DIFF (94293) Comments: PATIENT NOT FASTINGPERFORMED BY: LabCoUNM Psychiatric CenterAvildn0191 [facility] [id number] Immature Grans (Abs) 0.0 {x10E3/uL} (Normal) Range: [...] {x10E3/uL} (Normal) Range: 4.0-10.5 :20 LIPID PANEL (66915) Comments: PATIENT NOT FASTINGPERFORMED BY: [facility] Centerlin6370 [facility] [id number] LDL/HDL Ratio 0.9 {ratio_units} (Normal) Range: 0.0-3.2 [...] PANEL, COMPREHENSIVE Comments: PATIENT NOT FASTINGPERFORMED BY: my6senseRiverview Medical CenterSumwas7874 [facility] [id number] (70206) ALT (SGPT) 28 [iU]/L (Normal) Range: 0-40 [...] (Abnormal) Range: 65-99 :39 HgA1C , Office (94683) HgA1C , Office 6.5 % (Normal) Range: 4.6 - 7.1 :39 Blood Glucose , Office (79959) Blood Glucose , Office 128 (Normal) 4-Wak-107009:19 CBC With Differential/Platelet Comments: PATIENT WAS FASTINGPERFORMED BY: LabCoRiverview Medical CenterJeneoq2422 [facility] [id number] Immature Grans (Abs) 0.0 {x10E3/uL} (Normal) Range: [...] 3.80-5.10 WBC 5.6 {x10E3/uL} (Normal) Range: 4.0-10.5 2-Mfo-909896:19 Comp. Metabolic Panel (14) Comments: PATIENT WAS FASTINGPERFORMED BY: LabCoRiverview Medical CenterPzogfz4053 [facility] [id number]; appt 01/11/11 ALT (SGPT) 18 [iU]/L (Normal) [...] Glucose, Serum 113 mg/dL (Abnormal) Range: 65-99 9-Anb-027486:19 Lipid Panel With LDL/HDL Comments: PATIENT WAS FASTINGPERFORMED BY: [facility] [id number] Ratio LDL/HDL Ratio 1.0 {ratio_units} Range: 0.0-3.2 [...] 0.800 {uIU/mL} Comments: PATIENT WAS FASTINGPERFORMED BY: HashTipDublin [place] [id number] 2:19 (Normal) Range: 0.450-4.500 Vitamin D, 25-Hydroxy 44.0 ng/mL (Normal) Comments: PATIENT WAS FASTINGPERFORMED BY: [facility]6370 [facility] [id number] 2:19 Range: 32.0-100.0 Comments: Effective February 22, 2011 Vitamin D, 25-Hydroxy reference intervals will be changing to 30-100. .Recent studies consider the lower li sandra of 32.0 ng/mL to be athreshold for optimal health.Otf HAYES. J Nutr. 2004;135(2):317-22. :54 HgA1C , Office (08069) HgA1C , Office 6.6 % (Normal) Range: 4.6 - 7.1 :54 Blood Glucose , Office (26596) Blood Glucose , Office 134 (Normal) :40 Creatinine Clearance Comments: PERFORMED BY: [facility]6370 [facility] [id number] Information: 10/07@7AM 10/08@3AM Creatinine Clearance 56 mL/min [...] Protein Total, Qn, 24-Hr Comments: PERFORMED BY: [employer] Twfdfc8598 [facility] [id number] Urine Prot,24hr calculated 610.5 {mg/24_hr} (Abnormal) Range: 30.0-150.0 Protein,Total,Urine 40.7 mg/dL (Abnormal) Range: 0.0-15.0 :46 Vitamin D Hydroxy (09558) Comments: PATIENT WAS FASTINGPERFORMED BY: Juk[facility]ck Qmltkd1306 [facility] [id number] Vitamin D, 25-Hydroxy 36.5 ng/mL (Normal) Range: 32.0-100.0 Comments: Recent studies consider the lower limit of 32.0 ng/mL to be athreshold for optimal health.Otf HAYES. J Nutr. 2004;135(2):317-22. :46 METABOLIC PANEL, COMPREHENSIVE Comments: PATIENT WAS FASTINGPERFORMED BY: Juk[employer]ck Jgnnzy2777 [facility] [id number] (85682) ALT (SGPT) 34 [iU]/L (Normal) Range: 0-40 [...] mg/dL (Abnormal) Range: 65-99 :46 LIPID PANEL (64258) Comments: PATIENT WAS FASTINGPERFORMED BY: [employer]70 [facility] [id number] LDL Cholesterol Calc 85 mg/dL (Normal) Range: [...] MANUAL DIFF Comments: PATIENT WAS FASTINGPERFORMED BY: [employer]70 [facility] [id number] Information: [id number]; appt 10/12/10 (35960) Immature Grans (Abs) 0.0 {x10E3/uL} (Normal) Range: [...] (Normal) Range: 4.0-10.5 :07 HgA1C , Office (50489) HgA1C , Office 6.6 % (Normal) Range: 4.6 - 7.1 :07 Blood Glucose , Office (16541) Blood Glucose , Office 114 (Normal) 45-Fek-639050:00 Creatinine Clearance Comments: PERFORMED BY: [facility]Asc[facility]6370 [facility] [id number] Information: 12/31@8AM 01/01@4AM Creatinine Clearance 48 mL/min [...] Creatinine, Serum 1.20 mg/dL (Abnormal) Range: 0.57-1.00 88-Noq-706750:00 Protein Total, Qn, 24-Hr Comments: PERFORMED BY: LabCoRiverview Medical CenterYzsvuv0860 [facility] [id number] Urine Prot,24hr calculated 1070.6 {mg/24_hr} (Abnormal) Range: 30.0-150.0 Protein,Total,Urine 79.3 mg/dL (Abnormal) Range: 0.0-15.0 92-Xax-241828:48 BILAT SCRN DIGITAL & CAD Radiology Report See Note (Normal) Comments: Exam Number: [id number] MAMMOGRAPHY - BILATERAL SCREENING INDICATION:Routine annual screening [...] of attaching a ResultCode to this exam.ADDENDUM: [id number] HPBI/MDS Reported By: MISAEL HEBERT 93-Ybx-256472:48 DEXA BONE DENSITY STUDY (HP) Radiology Report See Note (Normal) Comments: Exam Number: [id number] CLINICAL:This is a 69-year-old female patient with postmenopausal screening. EXAMINATION:DUAL ENERGY X-RAY ABSORPTIOMETRY / DEXA. TECHNIQUE:Bone Density Measurements (BMD) of lumb ar spine and bilateral hipswere obtained using a 20x200 scanner.. COMPARISON:None. FINDINGS: Lumbar Spine (L1-L4): g/cm2 [...] Osteoporosis Foundation http://www.nof.org Reported By: MISAEL HEBERT 09-Hyu-282915:29 HgA1C , Office (28648) HgA1C , Office 6.5 % (Normal) Range: 4.6 - 7.1 14-Wpf-775932:29 Blood Glucose , Office (11251) Blood Glucose , Office 109 (Normal) 05-Lia-61461:05 CBC With Differential/Platelet Comments: PATIENT WAS FASTINGPERFORMED BY: LabCoRiverview Medical CenterHbgeai9324 [facility] [id number] Immature Grans (Abs) 0.0 {x10E3/uL} (Normal) Range: [...] 3.80-5.10 WBC 3.9 {x10E3/uL} (Abnormal) Range: 4.0-10.5 44-Sog-66895:05 Comp. Metabolic Panel (14) Comments: PATIENT WAS FASTINGPERFORMED BY: [facility] Xezdeu9200 [facility] [id number] ALT (SGPT) 20 [iU]/L (Normal) Range: 0-40 [...] Glucose, Serum 123 mg/dL (Abnormal) Range: 65-99 74-Dlp-63318:05 Lipid Panel With LDL/HDL Comments: PATIENT WAS FASTINGPERFORMED BY: LabCoRiverview Medical CenterEqnftf4248 [facility] [id number] Ratio HDL Cholesterol 54 mg/dL (Normal) Comments: [...] (Normal) Comments: PATIENT WAS FASTINGPERFORMED BY: EVE [employer]70 [facility] [id number] :05 Range: 32.0-100.0 Comments: Recent studies consider the lower limit of 32.0 ng/mL to be athreshold for optimal health.Otf HAYES. J Nutr. 2004;135(2):317-22. 50-Hyc-17939:41 SPLEEN (HP) Radiology Report See Note (Normal) Comments: Exam Number: [id number] ULTRASOUND OF THE SPLEEN A goal directed [...] Protein, 0.5 mg/L (Normal) Comments: PERFORMED BY: [employer]6370 [facility] [id number] 10:54 Quant Range: 0.0-4.9 17-Jun-2009 Hemoglobin A1c 6.3 % (Abnormal) Comments: PERFORMED BY: [employer] [facility] [id number] 10:54 Range: 4.8-5.6 Comments: Increased risk for diabetes: 5.7 - 6.4Diabetes: >6.4Glycemic control for adults with diabetes: <7.0.Please note reference interval change 17-Jun-2009 Sedimentation 4 mm/h (Normal) Comments: PERFORMED BY: [employer]70 [facility] [id number] 10:54 Rate-Westergren Range: 0-30 17-Jun-2009 Vitamin B12 1372 pg/mL Comments: PERFORMED BY: CB DeliveryChe[employer]in Etdtid9016 [facility] [id number] 10:54 (Abnormal) Range: 211-911 Comments: Effective July 14, 2009, Vitamin B12 will bechanging to the [place] ECLIA methodology. Thereference interval will be changing to:211 - 946 pg/mL 17-Jun-2009 Vitamin D, 25-Hydroxy 37.7 ng/mL Comments: PERFORMED BY: EVE Jukedeckrp Ainoiv8123 [facility] [id number] 10:54 (Normal) Range: 32.0-100.0 Comments: Recent studies consider the lower limit of 32.0 ng/mL to be athreshold for optimal health.Otf HAYES. J Nutr. 2004;135(2):317-22. 88-Htm-567015:34 Vitamin D Hydroxy Comments: PATIENT NOT FASTINGPERFORMED BY: [employer]6370 [facility] [id number] Information: E23399,2ND ORDER NO DRAW F EE (90410) Vitamin D, 25-Hydroxy 48.5 ng/mL (Normal) Range: 30.0-100.0 Comments: Vitamin D deficiency has been defined by the [place] of[place]icine and an Endocrine Society practice guideline as alevel of serum 25-OH vitamin D less than 20 ng/mL (1,2).The Endocrine Society went on to further define vitamin Dinsufficiency as a level between 21 and 29 ng/mL (2).1. IOM ([place] of [employer]). 2010. Dietary reference intakes for calcium and D. [place]: The National Academies Press.2. Mira MF, [place], Tommy SWAIN, et al. Evaluation, treatment, and prevention of vitamin D deficiency: an Endocrine Society clinical practice guideline. JCEM. 2010; 96(7):1911-30. :50 HgA1C , Office (27634) HgA1C , Office 6.7 % (Normal) Range: 4.6 - 7.1 :50 Blood Glucose , Office (86425) Blood Glucose , Office 117 (Normal) 84-Vwa-149991:12 CBC With Differential/Platelet Comments: PERFORMED BY: JukedeckRiverview Medical CenterMlogba6591 [facility] [id number] Information: 06/10@6AM3/10@330AM Hematology Comments: Note: (Normal) Comments: [...] 3.80-5.10 WBC 3.6 {x10E3/uL} (Abnormal) Range: 4.0-10.5 36-Ccx-422712:12 Comp. Metabolic Panel (14) Comments: PERFORMED BY: [facility]6370 [facility] [id number] Alkaline Phosphatase, S 68 [iU]/L (Normal) Range: [...] Glucose, Serum 124 mg/dL (Abnormal) Range: 65-99 10-Mqg-649344:12 Creatinine Clearance Comments: PERFORMED BY: [facility]6370 [facility] [id number] Creatinine Clearance 49 mL/min (Abnormal) Range: 88-128 Comments: The above range is based on 1.73 square meter average body surfacearea. Creatinine, Ur 24hr 800.0 {mg/24_hr} (Normal) Range: 800.0-1800.0 Creatinine, Urine 40.0 mg/dL (Normal) Range: 15.0-278.0 27-Zub-455465:12 Lipid Panel With LDL/HDL Comments: PERFORMED BY: Jukedeck Ebozda0762 [facility] [id number] Ratio HDL Cholesterol 61 mg/dL (Normal) Comments: According to ATP-III Guidelines, HDL-C >59 mg/dL is considered anegative risk factor for CHD. LDL Cholesterol Calc 74 mg/dL (Normal) Range: 0-99 LDL/HDL Ratio 1.2 {ratio_units} (Normal) Range: 0.0-3.2 VLDL Cholesterol Cesar 17 mg/dL (Normal) Range: 5-40 Cholesterol, Total 152 mg/dL (Normal) Range: 100-199 Triglycerides 87 mg/dL (Normal) Range: 0-149 51-Pqj-792759:12 Protein Total, Qn, 24-Hr Comments: PERFORMED BY: [employer]70 [facility] [id number] Urine Prot,24hr calculated 1172.0 {mg/24_hr} Range: 30.0-150.0 (Abnormal) Protein,Total,Urine 58.6 mg/dL (Abnormal) Range: 0.0-15.0 TSH 1.280 {uIU/mL} Comments: PERFORMED BY: Jukedeck Ddygfv8598 [facility] [id number] 1:12 (Normal) Range: 0.450-4.500 :58 HgA1C , Office (44825) HgA1C , Office 6.0 % (Normal) Range: 4.6 - 7.1 :58 Blood Glucose , Office (51788) Blood Glucose , Office 113 (Normal) 7-Jai-021147:03 CBC With Differential/Platelet Comments: PATIENT WAS FASTINGPERFORMED BY: JukedeckRiverview Medical CenterTnlmvz9140 [facility] [id number] Baso (Absolute) 0.0 {x10E3/uL} (Normal) Range: 0.0-0.2 [...] 11.7-15.0 WBC 3.2 {x10E3/uL} (Abnormal) Range: 4.0-10.5 9-Rqq-260285:03 Comp. Metabolic Panel (14) Comments: PATIENT WAS FASTINGPERFORMED BY: LabCoRiverview Medical CenterGqpyzr8731 [facility] [id number] A/G Ratio 2.0 (Normal) Range: 1.1-2.5 Albumin, [...] With LDL/HDL Comments: PATIENT WAS FASTINGPERFORMED BY: [employer]70 [facility]gresseSandhills Regional [facility] Center [id number] Ratio Cholesterol, Total 167 mg/dL (Normal) Range: [...] ng/mL (Normal) Comments: PATIENT WAS FASTINGPERFORMED BY: [employer]6370 [facility] [id number] :03 Range: 32.0-100.0 Comments: Recent studies consider the lower limit of 32.0 ng/mL to be athreshold for optimal health.Otf HAYES. J Nutr. 2005 May;135(2):317-22. 85-Hfu-867481:32 Urinalysis, Office (50905) UA - BILIRUBIN Negative (Normal) UA - BLOOD Hemolyzed Trace (Normal) UA - GLUCOSE Negative (Normal) UA - KETONES Negative mg/dL (Normal) UA - LEUKOCYTE ESTERASE Negative (Normal) UA - NITRITE Negative (Normal) UA - PH 6.5 (Normal) UA - PROTEIN 300 mg/dL (Normal) UA - SPECIFIC GRAVITY 1.020 (Normal) URINE UROBILINGN JATINDER TIMED 2 mg/dL (Normal) 7-Ifr-863294:19 URINE STEH CULTURE-JATINDER COL Comments: PATIENT NOT FASTINGClinical Information: SRC:UR ADD [id number] PERFORMED BY: EVE EBIQUOUS [place] [id number] COUNT (34243) Result 1 ECV (Normal) Comments: Escherichia coli, [...] report (Normal) Culture,Comprehensiv e 09-Jan-20098:17 Urinalysis, Office (93528) UA - BILIRUBIN Negative (Normal) UA - BLOOD Hemolyzed Large (Normal) UA - GLUCOSE Negative (Normal) UA - KETONES Negative mg/dL (Normal) UA - LEUKOCYTE ESTERASE Moderate (Normal) UA - NITRITE Negative (Normal) UA - PH 7.0 (Normal) UA - PROTEIN 300 mg/dL (Normal) UA - SPECIFIC GRAVITY 1.020 (Normal) URINE UROBILINGN JATINDER TIMED 2 mg/dL (Normal) 5-Heq-745358:05 Comp. Metabolic Panel (14) Comments: PATIENT WAS FASTINGPERFORMED BY: EVE Sphera CorporationSandhills [facility] Center [id number] A/G Ratio 1.7 (Normal) Range: 1.1-2.5 Albumin, [...] Panel (7) Comments: PATIENT WAS FASTINGPERFORMED BY: LabCoRiverview Medical CenterNlchqi6205 [facility] [id number] Bilirubin, Direct 0.12 mg/dL (Normal) Range: 0.00-0.40 :05 Lipid Panel With LDL/HDL Comments: PATIENT WAS FASTINGPERFORMED BY: [facility]Asc[facility]6370 [facility] [id number] Ratio Cholesterol, Total 170 mg/dL (Normal) Range: [...] mg/dL (Normal) Comments: PATIENT WAS FASTINGPERFORMED BY: [facility]Asc[facility] Hospital6370 [facility] [id number] :05 Range: 2.5-4.5 PTH, Intact 19 pg/mL (Normal) Comments: PATIENT WAS FASTINGPERFORMED BY: [facility]Asc[facility]6370 [facility] [id number] :05 Range: 15-65 Vitamin D, 25-Hydroxy 38.9 ng/mL (Normal) Comments: PATIENT WAS FASTINGPERFORMED BY: [facility]6370 [facility] [id number] :05 Range: 32.0-100.0 Comments: Recent studies consider the lower limit of 32.0 ng/mL to be athreshold for optimal health.Otf HAYES. J Nutr. 2004;135(2):317-22. :40 HgA1C , Office (44726) HgA1C , Office 6.0 % (Normal) Range: 4.6 - 7.1 :40 Blood Glucose , Office (40632) Blood Glucose , Office 109 (Normal) :42 CBC With Differential/Platelet Comments: PATIENT WAS FASTINGPERFORMED BY: LabCoRiverview Medical CenterZdskmf4641 [facility] [id number] Baso (Absolute) 0.0 {x10E3/uL} (Normal) Range: 0.0-0.2 [...] 11.7-15.0 WBC 4.2 {x10E3/uL} (Normal) Range: 4.0-10.5 92-Ifi-351467:42 Comp. Metabolic Panel (14) Comments: PATIENT WAS FASTINGPERFORMED BY: LabAsc[facility] Hospital6370 [facility] [id number] A/G Ratio 1.6 (Normal) Range: 1.1-2.5 Albumin, [...] Sodium, Serum 140 mmol/L (Normal) Range: 135-145 9-Ywd-056317:09 FECAL OCCULT HGB ASSAY, QUAL, 1-3 SIMULTANEOUS DETERMINATIONS (33868) FECAL OCCULT HGB ASSAY, QUAL, 1-3 SIMULTANEOU neg (Normal) :42 Microscopic Examination Comments: PATIENT WAS FASTINGPERFORMED BY: [employer]70 [facility] [id number] Bacteria None seen (Normal) Cast Type Hyaline casts (Normal) Casts Present {/lpf} (Abnormal) Epithelial Cells (non renal) 0-10 {/hpf} (Normal) Range: 0 - 10 Mucus Threads Present (Normal) RBC 0-3 {/hpf} (Normal) Range: 0 - 3 WBC 0-5 {/hpf} (Normal) Range: 0 - 5 :42 URINALYSIS W/O MICRO (81164) Comments: PATIENT WAS FASTINGPERFORMED BY: [employer] Signal Technologiesin [place] [id number] Appearance Clear (Normal) Bilirubin Negative (Normal) Glucose Negative (Normal) Ketones Negative (Normal) Microscopic Examination See below: (Normal) Nitrite, Urine Negative (Normal) Occult Blood Negative (Normal) pH 5.0 (Normal) Range: 5.0-7.5 Protein 1+ (Abnormal) Specific [place] 1.013 (Normal) Range: 1.005-1.030 Urine-Color Yellow (Normal) Urobilinogen,Semi-Qn 0.2 mg/dL (Normal) Range: 0.0-1.9 WBC Esterase 1+ (Abnormal) :42 MICROALBUMIN: CREATININE RATIO Comments: PATIENT WAS FASTINGPERFORMED BY: [address] [id number] (90579) AND (73839) Creatinine, Urine 76.1 mg/dL (Normal) Range: 15.0-278.0 Microalb/Creat Ratio 292.1 {ug/mg_creat} (Abnormal) Range: 0.0-30.0 Microalbumin, Urine 222.3 ug/mL (Abnormal) Range: 0.0-17.0 :42 CBC WITH MANUAL DIFF (22107) Comments: PATIENT WAS FASTINGClinical Information: ADD DRAW FEE [id number] ADD J 30443 PERFORMED BY: [facility]6370 [facility] [id number] Baso (Absolute) 0.0 {x10E3/uL} (Normal) Range: 0.0-0.2 [...] COMPREHENSIVE Comments: PATIENT WAS FASTINGPERFORMED BY: [facility]6370 [facility] [id number] (86180) A/G Ratio 1.8 (Normal) Range: 1.1-2.5 Albumin, [...] Sodium, Serum 141 mmol/L (Normal) Range: 135-145 0-Mby-005752:23 HgA1C , Office (82406) HgA1C , Office 6.0 % (Normal) Range: 4.6 - 7.1 2-Smv-360137:23 Blood Glucose , Office (97416) Blood Glucose , Office 103 (Normal) 48-Yzg-753222:38 CBC WITH MANUAL DIFF (43526) Comments: PATIENT WAS FASTINGClinical Information: ADD DRAW FEE [id number] ADD J 22613 PERFORMED BY: [facility] Cyydvm8073 [facility] [id number] Baso (Absolute) 0.0 {x10E3/uL} (Normal) Range: 0.0-0.2 [...] 11.7-15.0 WBC 4.0 {x10E3/uL} (Normal) Range: 4.0-10.5 47-Oig-706274:38 METABOLIC PANEL, COMPREHENSIVE Comments: PATIENT WAS FASTINGPERFORMED BY: LabCoRiverview Medical CenterWukiet0995 [facility] [id number] (83551) A/G Ratio 1.8 (Normal) Range: 1.1-2.5 Albumin, [...] Sodium, Serum 142 mmol/L (Normal) Range: 135-145 72-Sjz-825350:38 HEPATIC FUNCTION PANEL Comments: PATIENT WAS FASTINGPERFORMED BY: [facility] Aoirem1677 [facility] [id number] (02884) Bilirubin, Direct 0.08 mg/dL (Normal) Range: 0.00-0.40 14-Tua-693842:38 LIPID PANEL (96204) Comments: PATIENT WAS FASTINGPERFORMED BY: Jukedeck Fndzsi8435 [facility] [id number] Cholesterol, Total 200 mg/dL (Abnormal) Range: 100-199 [...] Cholesterol Cesar 18 mg/dL (Normal) Range: 5-40 4-Xni-051355:36 HgA1C , Office (61626) HgA1C , Office 6.1 % (Normal) Range: 4.6 - 7.1 :36 Blood Glucose , Office (93574) Blood Glucose , Office 98 (Normal) 70-Rwv-690598:33 CBC With Differential/Platelet Comments: PATIENT WAS FASTINGClinical Information: SRC:UR PERFORMED BY: [facility] Kbuhsz2052 [facility] [id number] Baso (Absolute) 0.0 {x10E3/uL} (Normal) Range: 0.0-0.2 [...] 11.7-15.0 WBC 4.8 {x10E3/uL} (Normal) Range: 4.0-10.5 14-Gjw-234100:33 Comp. Metabolic Panel (14) Comments: PATIENT WAS FASTINGPERFORMED BY: [facility] [id number] A/G Ratio 1.6 (Normal) Range: 1.1-2.5 Albumin, [...] Serum 92 mg/dL (Normal) Range: 65-99 If -[place]ankan 57 mL/min/1.73 Comments: Note: Persistent reduction for [...] Sodium, Serum 142 mmol/L (Normal) Range: 135-145 18-Dtl-464955:33 Lipid Panel With LDL/HDL Comments: PATIENT WAS FASTINGPERFORMED BY: [facility] Signal TechnologiesSaint [facility] [id number] Ratio Cholesterol, Total 174 mg/dL (Normal) Range: 100-199 HDL Cholesterol 67 mg/dL (Normal) Comments: According to ATP-III Guidelines, HDL-C >59 mg/dL is considered anegative risk factor for CHD. LDL Cholesterol Calc 85 mg/dL (Normal) Range: 0-99 LDL/HDL Ratio 1.3 {ratio_units} (Normal) Range: 0.0-3.2 Triglycerides 110 mg/dL (Normal) Range: 0-149 VLDL Cholesterol Cesar 22 mg/dL (Normal) Range: 5-40 62-Xav-909696:33 Urine Culture,Comprehensive Comments: PATIENT WAS FASTINGPERFORMED BY: [facility] [id number] Antimicrobial [facility] (Normal) Comments: S = Susceptible; I [...] Enterococcus. (Normal) Urine Final report (Normal) Culture,Comprehensive 1-Jil-766715:10 HgA1C , Office (00267) HgA1C , Office 5.9 % (Normal) Range: [...] mL (Normal) URINE PROTEIN 20.0 mg/dL (Abnormal) 62-Bhc-605339:17 Urine Culture,Comprehensive Comments: Clinical Information: SRC:UR PERFORMED BY: [facility] Vqwecf0811 [facility] [id number] Result 1 CNSNSS (Normal) Comments: Coagulase negative Staphylococcus species, not Staphylococcussaprophyticus.600 Colonies/mLSusceptibility or resistance of staphylococci to oxacillin predictssusceptibility or resistance to (a) other be kl-utrfovjsg-hcfrlssbrdpgjwtim such as cloxacillin and dicloxacillin, (b) combinationsof a penicillin and a beta-lactamase inhibitor, and(c) anti- staphylococcal cephalosporins. Routine testing of otherp enicillins, beta-lactam/beta-lactamase inhibitor combinations,cephems, and carbapenems is not advised by the CLSI Standards(M824-X44, 2005). S = Susceptible; I = Intermediate; R = Resistant * P = Positive; N = Negative MICS are expressed in micrograms per mL Antibiotic RSLT#1 RSLT#2 RSLT#3 RSLT#4Ciprofloxacin RGentami kristian SLevofloxacin RNitrofurantoin SOxacillin SPenicillin RRifampin STrimethoprim/Sulfa SVancomycin S Urine Final report Culture,Comprehensi (Normal) ve 7-Kuf-783361:53 Metabolic Panel, Basic (53058) Comments: PATIENT NOT FASTINGClinical Information: ADD DRAW FEE [id number] ADD J 09500 PERFORMED BY: [facility] Yesfjv5989 [facility] [id number] BUN 39 mg/dL (Abnormal) Range: 5-26 BUN/Creatinine Ratio 33 (Abnormal) Range: 8-27 Calcium, Serum 9.8 mg/dL (Normal) Range: 8.5-10.6 Carbon Dioxide, Total 22 mmol/L (Normal) Range: 20-32 Chloride, Serum 103 mmol/L (Normal) Range: 97-108 Creatinine, Serum 1.20 mg/dL (Abnormal) Range: 0.57-1.00 Glom Filt Rate, Est 45 mL/min/1.73 Range: 60-128 (Abnormal) Glucose, Serum 101 mg/dL (Abnormal) Range: 65-99 If -[place]ankan 55 mL/min/1.73 Range: 60-128 (Abnormal) Comments: Note: Persistent reduction for 3 months or more in an eGFR<60 mL/min/1.73 m2 defines CKD. Patients with eGFR values>/=60 mL/min/1.73 m2 may also have CKD if evidence of persistentproteinuria is present. Additional information may be found [email or web address]. Potassium, Serum 5.1 mmol/L (Normal) Range: 3.5-5.2 Sodium, Serum 139 mmol/L (Normal) Range: 135-145 :09 HgA1C , Office (74335) HgA1C , Office 6.1 % (Normal) Range: 4.6 - 7.1 :09 Blood Glucose , Office (19513) Blood Glucose , Office 163 (Normal) :37 SPINE,LUMBAR (ROUTINE) Radiology Report See Note (Normal) Comments: Exam Number: [id number] MRI LUMBAR SPINE CLINICAL STATEMENTLow back pain [...] onboth sides. Reported By: MODESTA COPE M.D. 55-Ejb-636798:00 BILAT SCRN DIGITAL & CAD Radiology Report See Note (Normal) Comments: Exam Number: [id number] MAMMOGRAM, BILATERAL SCREENING DIGITAL AND CAD HISTORYRoutine screening. Full field digital images were obtained in mediolateral oblique andcraniocaudal projections. CAD images w ere reviewed. The current [facility] A small metal marker is placed [...] mammograms werealso examined with computer-aided detection software ([employer].). Reported By: DONNA OJEDA M.D. 51-Fwr-249406:59 DEXA BONE DENSITY STUDY (HP) Radiology Report See Note (Normal) Comments: Exam Number: [id number] BONE DENSITOMETRY HISTORYPost menopausal. TECHNIQUE Bone densitometry [...] hip is within normal limits. Reported By: ODNNA OJEDA M.D. :55 L/S SPINE,MIN 4 VIEWS (MT) Radiology Report See Note (Normal) Comments: Exam Number: [id number] FIVE VIEW LUMBAR SPINE AP, lateral, both [...] Comments: PATIENT NOT FASTINGPERFORMED BY: EVE [facility] Yeecci1370 [facility] [id number] Creatinine, Urine 46.8 mg/dL (Normal) Microalb/Creat Ratio 712.8 {ug/mg_creat} (Abnormal) Range: 0.0-30.0 Microalbum.,U,Random 333.6 ug/mL (Abnormal) Range: 0.0-17.0 :13 Creatinine Clearance Comments: PATIENT NOT FASTINGClinical Information: HT-5'4'' WT-184 PERFORMED BY: [facility] [id number] [facility] [id number] Creatinine Clearance 40 mL/min (Abnormal) Range: 88-128 Comments: The above range is based on 1.73 square meter average body surfacearea. Creatinine, Serum 1.30 mg/dL (Normal) Range: 0.50-1.50 Creatinine, Ur 24hr 754.8 {mg/24_hr} Range: 800.0-1800.0 (Abnormal) Creatinine, Urine 44.4 mg/dL (Normal) Glom Filt Rate, Est 41 mL/min (Abnormal) Range: 60-128 If -[place]ank[place] 50 mL/min (Abnormal) Range: 60-128 Comments: Note: Persistent reduction for 3 months or more in an eGFR<60 mL/min/1.73 m2 defines CKD. Patients with eGFR values>/=60 mL/min/1.73 m2 may also have CKD if evidence of persistentproteinuria is present. .Additional information may be found at www.[email or web address]. 05-Sep-20079:13 Protein Total, Qn, 24-Hr Comments: PATIENT NOT FASTINGPERFORMED BY: [facility] CenterYersnc5143 [facility] [id number] Urine Protein,Total,Urine 49.0 mg/dL (Abnormal) Range: 0.0-15.0 Prt, 24hr calculated 833.0 {mg/24_hr} (Abnormal) Range: 30.0-150.0 19-Oqr-356117:00 CBCD,SMEAR DIFF CELLS COUNTED 100 (Normal) EOS [...] D BILI 0.06 mg/dL (Normal) Range: 0.00-0.30 32-Vsx-827757:00 LIPID CHOL 175 mg/dL (Normal) Comments: <200 [...] of skin Planned Observations Vitamin D Hydroxy (93984)Indication: Vitamin D deficiency On: Request URINALYSIS, W/ MICRO (20502)Indication: Chronic kidney disease, stage 3 On: Request LIPID PANEL (49070)Indication: Mixed hyperlipidemia On: Request CBC W/AUTO DIFF WBC (33570)Indication: Chronic kidney disease, stage 3 On: Request METABOLIC PANEL, COMPREHENSIVE (12516)Indication: Chronic kidney disease, stage 3 On: Request HGB A1C (72891)Indication: Diabetes mellitus type II, controlled On: 41-Zgm-777011:24 Request Parathyroid Hormone-related Peptide (PTH-rP) (51033)Indication: Vitamin D deficiency On: 0-Ejq-997576:43 Request Comments: send results to Dr. Santana fax: [phone] VITAMIN D, 1, 25-DIHYDROXY (42239)Indication: Vitamin D deficiency On: 3-Ikt-803449:42 Request Comments: send results to Dr. Santana fax: [phone] Clostridium difficile Toxin A+B, EIA (58942)Indication: Chronic diarrhea On: 1-Gut-075391:36 Request Vitamin D Hydroxy (83629)Indication: Osteopenia On: 9-Hwt-077139:20 Request CBC W/AUTO DIFF WBC (53515)Indication: Hypertension, benign On: 2-Mfu-947324:16 Request CALCIFEDIOL (73583)Indication: Chronic kidney disease, stage 3 On: :04 Request Renal function Panel (48017)Indication: Chronic kidney disease, stage 3 On: :04 Request Magnesium (97526)Indication: Chronic kidney disease, stage 3 On: 03-Aug-20169:04 Request MICROALBUMIN: CREATININE RATIO (60121) AND (78333)Indication: Chronic kidney disease, stage 3 On: :04 Request Parathyroid Hormone-related Peptide (PTH-rP) (36926)Indication: Chronic kidney disease, stage 3 On: 03-Aug-20169:04 Request T4, FREE (THYROXINE) (00793)Indication: Cold feeling On: 03-Aug-20168:31 Request TSH (53899)Indication: Cold feeling On: 03-Aug-20168:31 Request PARATHORMONE (09084)Indication: Chronic kidney disease, stage 3 On: 05-Hru-73712:18 Request Comments: copy to Dr. Santana [phone] CALCIFIDIOL (89669) VIT D 25Indication: Chronic kidney disease, stage 3 On: 94-Tos-55166:16 Request Comments: copy to Dr. Santana [phone] MAGNESIUM (82447)Indication: Chronic kidney disease, stage 3 On: 68-Rta-21891:15 Request Comments: copy to Dr. Santana [phone] PROTEIN/CREAT RATIO, URINE (74971)Indication: Chronic kidney disease, stage 3 On: :15 Request Comments: copy to Dr. Santana [phone] LIPID PANEL (81309)Indication: Mixed hyperlipidemia On: :21 Request CBC with auto diff (86829)Indication: Diabetes mellitus type II, controlled On: 02-Nhd-934982:20 Request METABOLIC PANEL, COMPREHENSIVE (08611)Indication: Diabetes mellitus type II, controlled On: 67-Vke-285933:20 Request HGB A1C (53828)Indication: Diabetes mellitus type II, controlled On: 09-Zpx-665565:10 Request Vitamin D Hydroxy (82198)Indication: Osteopenia On: :08 Request TSH (THYROID STIMULATING HORMONE) (52069)Indication: Depression On: 71-Ntb-216866:06 Request LIPID PANEL (13469)Indication: Other and unspecified hyperlipidemia On: 53-Rxw-995393:06 Request CBC with auto diff (55953)Indication: Diabetes mellitus type II, controlled On: 86-Kpl-117409:06 Request METABOLIC PANEL, COMPREHENSIVE (42368)Indication: Diabetes mellitus type II, controlled On: 18-Dpl-846908:06 Request CREATININE CLEARANCE (09395)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 On: 2-Fju-876848:38 Request Total Protein,24 Hour Urine (88929)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 On: 4-Whj-837914:38 Request CBC W/AUTO DIFF WBC (46735)Indication: Diabetes mellitus type II, controlled On: 16-Lie-677695:11 Request HgA1C , Office (43433)Indication: Diabetes mellitus type II, controlled On: 16-Voc-253044:23 Request CULTURE, SPUTUM (71070)Indication: Cough On: 98-Erf-433003:47 Request HEPATIC FUNCTION PANEL (74400)Indication: Elevated LFTs On: 93-Cfk-08814:24 Request CREATININE CLEARANCE (10719)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 On: :33 Request 24 hour urine for Protein (69465)Indication: 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 On: :33 Request CBC WITH MANUAL DIFF (47648)Indication: Diabetes mellitus type II, controlled On: 84-Bek-277380:29 Request METABOLIC PANEL, COMPREHENSIVE (06307)Indication: Diabetes mellitus type II, controlled On: :29 Request LIPID PANEL (03579)Indication: Mixed hyperlipidemia On: :29 Request CREATININE CLEARANCE (17801)Indication: 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 On: 4-Rbm-415463:45 Request 24 hour urine for Protein (33427)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 On: 4-Nsd-349792:45 Request CREATININE CLEARANCE (05412)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 On: 99-Rss-469543:57 Request 24 hour urine for Protein (14183)Indication: 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 On: 49-Bon-628846:57 Request METABOLIC PANEL, COMPREHENSIVE (40861)Indication: Hypertension, benign On: :32 Request LIPID PANEL (70203)Indication: Mixed hyperlipidemia On: :32 Request C-REACTIVE PROTEIN (35321)Indication: Fatigue On: :24 Request SED RATE ERYTHROCYTE (35930)Indication: Headache On: :24 Request VITAMIN B-12 (CYANOCOBALAMIN) (00067)Indication: Fatigue On: :24 Request LIPID PANEL (69248)Indication: Mixed hyperlipidemia On: :41 Request CBC WITH MANUAL DIFF (37857)Indication: Hypertension, benign On: 4-Daa-045297:41 Request METABOLIC PANEL, COMPREHENSIVE (27091)Indication: Hypertension, benign On: :41 Request CREATININE CLEARANCE (76271)Indication: 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 On: 8-Jjj-304615:34 Request 24 hour urine for Protein (32184)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 On: 5-Hdr-641079:34 Request LIPID PANEL (36320)Indication: Mixed hyperlipidemia On: :22 Request HEPATIC FUNCTION PANEL (49992)Indication: Mixed hyperlipidemia On: :22 Request Vitamin D Hydroxy (77346)Indication: Hypercalcemia On: 0-Rdt-088563:22 Request PHOSPHORUS (86398)Indication: Hypercalcemia On: 8-Fky-039073:22 Request PARATHORMONE (40344)Indication: Hypercalcemia On: 2-Jgs-995419:22 Request METABOLIC PANEL, COMPREHENSIVE (88947)Indication: Hypercalcemia On: 7-Xmt-895876:22 Request CBC WITH MANUAL DIFF (41884)Indication: fsgs On: 7-Pkw-954768:58 Request LIPID PANEL (42812)Indication: Mixed hyperlipidemia On: :58 Request METABOLIC PANEL, COMPREHENSIVE (26271)Indication: Hypertension, benign On: :58 Request Blood Glucose , Office (60434)Indication: Diabetes mellitus type II, controlled On: 6-Wyj-477253:10 Request TSH (17831)Indication: Diabetes mellitus type II, controlled On: 98-Xwr-636699:51 Request METABOLIC PANEL, COMPREHENSIVE (08801)Indication: Diabetes mellitus type II, controlled On: 94-Atq-486454:51 Request CBC WITH MANUAL DIFF (13262)Indication: Diabetes mellitus type II, controlled On: 49-Hsz-731855:51 Request MICROALBUMIN: CREATININE RATIO (77745) AND (44747)Indication: Diabetes mellitus type II, controlled On: 54-Ahz-492392:51 Request HEPATIC FUNCTION PANEL (16101)Indication: Other and unspecified hyperlipidemia On: 62-Ybj-140357:51 Request LIPID PANEL (60739)Indication: Other and unspecified hyperlipidemia On: 45-Vjh-233453:51 Request HgA1C , Office (70239)Indication: Diabetes mellitus type II, controlled On: 48-Imb-944608:37 Request Blood Glucose , Office (13819)Indication: Diabetes mellitus type II, controlled On: 80-Sgi-047874:37 Request Planned Encounters Medical; [facility] 3 Month FU - On: 22-Mar-2018 11:00 [facility] Fast DO, Chaparrita A Fast DO, Chaparrita A Planned Procedures DRAIN/INJECT MAJOR JOINT OR BURSA On: 24-Jan-2018 Intent ()By: Francisco MANN, Keri Alonzo Comments: Lot#[id number]: 4-29-35Okeeg:intra artciular Site given:left knee Given By: Dr. Singh ABN signed Euflexxa Echo CompleteBy: Fast DO, Chaparrita A On: 16-Dec-2017 Intent Fast DO, Chaparrita A Flu Vaccine (Quadrivalent) On: 16-Dec-2017 Intent 54093Fc: Fast DO, Chaparrita A Fast Comments: Lot: #[id number]: 10/01/18Site: L dltd, IMDose prefilled syringegiven by: Jamie reviewed and ABN signed DO, Chaparrita A Kenalog Injection, 10 mgm On: 03-Oct-2017 Intent (J3301)By: Keri Singh MD Comments: lot: [id number]: 11/20site/route: L knee Cartoid DopplerBy: Fast DO, Chaparrita On: 12-Sep-2017 Intent A Fast DO, Chaparrita A Comments: november DIGITAL TOMOSYNTHESIS On: 12-Sep-2017 Intent OF BREAST (38986)By: Ambrocio WOLFF, Comments: due november 02 Chaparrita A Fast DO, Chaparrita A Kenalog Injection, 10 mgm On: 06-Jun-2017 Intent (J3301)By: Keri Singh MD Comments: bupivacacine 0.5% [id number] exp 09-20 kenalog 40 mg injected in. [id number] 07-21 MRI OF BRAIN WITH AND WITHOUT On: 06-Jun-2017 Intent CONTRAST (75135)By: Fast DO, Chaparrita A Fast DO, Chaparrita A ELECTROCARDIOGRAM, COMPLETE (ECG) On: 06-Jun-2017 Intent (10179)By: Fast DO, Chaparrita A Fast Comments: ekg [...] Intent , 1000 CC (Special Coverage Comments: lot:[id number]:IV left anticub dose:1000ml given by:eliazar HUMPHREY signedER, TRANSFUSION AIDE Instructions Apply. See MCM: 2048) (J7030)By: Fast DO, Chaparrita A Fast DO, Chaparriat A Radiology - Chest- PA and LatBy: On: 05-May-2017 Intent Keri Singh MD Aerosol Treatment (88164)By: On: 05-May-2017 Intent Krei Singh MD Radiology - ChestBy: Francisco MANN, On: 05-May-2017 Intent Keri Alonzo Comments: call wet read DRAIN/INJECT MAJOR JOINT OR BURSA On: 28-Feb-2017 Intent ()By: Keri Singh MD Comments: 1 cc Kenelog #[id number] Marcaine #[id number] Kenalog Injection, 10 mgm On: 28-Feb-2017 Intent (J3301)By: Keri Singh MD ELECTROCARDIOGRAM, COMPLETE (ECG) On: 10-Jan-2017 Intent (95687)By: Ambrocio WOLFF Chaparrita A Ambrocio Comments: ekg showed normal sinus rhythym, normal axis, no acute st/t wave changes DO, Chaparrita A Flu Vaccine (Quadrivalent) On: 27-Dec-2016 Intent 58699Ta: SHONDA Andrade DRAIN/INJECT MAJOR JOINT OR BURSA On: 20-Aug-2016 Intent ()By: Keri Singh MD DRAIN/INJECT MAJOR JOINT OR BURSA On: 13-Aug-2016 Intent ()By: SHONDA Andrade Comments: lot: [id number]:intra articular dose:2ml given by:Dr. Francisco HUMPHREY signedER, TRANSFUSION AIDE injection #3 DOPPLER ULTRASOUND OF RIGHT On: 10-Aug-2016 Intent CAROTID ARTERY (40526)By: Ambrocio Comments: end of october DO, Chaparrita A Fast DO, Chaparrita A DEXA SCAN AXIAL SKELETON On: 10-Aug-2016 Intent (67529)By: Ambrocio DO, Chaparrita A Ambrocio Comments: end of october DO, Chaparrita A SCREENING DIGITAL TOMOSYNTHESIS On: 10-Aug-2016 Intent OF BREAST (82826)By: Ambrocio WOLFF, Comments: end of october Chaparrita A Fast DO, Chaparrita A DRAIN/INJECT MAJOR JOINT OR BURSA On: 06-Aug-2016 Intent ()By: Keri Singh MD DRAIN/INJECT INTERMED JOINT/BURSA On: 06-Aug-2016 Intent ()By: SHONDA Andrade Comments: lot:[id number]:left knee dose:2mlgiven by:Dr. Bonezzi ABN signedER, TRANSFUSION AIDE injection number 2 Venous Doppler - LeftBy: Fast DO, On: 03-Aug-2016 Intent Chaparrita A Fast DO, Chaparrita A Comments: This is set up for August 05 at 11am- spoke with Rina in cv. DRAIN/INJECT INTERMED JOINT/BURSA On: 30-Jul-2016 Intent ()By: Keri Singh MD Comments: lot:[id number]:intra articular left knee dose: 2ml given by: Dr. Singh ABN signedER, TRANSFUSION AIDE injection #1 Radiology - Knee - LeftBy: Fast On: 26-May-2016 Intent DO, Chaparrita A Fast DO, Chaparrita A Flu Vaccine (Quadrivalent) On: 27-Jan-2016 Intent 96519Tp: Fast DO, Chaparrita A Fast Comments: Lot #:[id number] date:10/01/16mount given:0.5mlRoute: IMSite given: left deltoidGiven by: CARMELINA Hook DO, Chaparrita A ADMINISTRATION OF INFLUENZA VIRUS On: 27-Jan-2016 Intent VACCINE (G0008)By: Fast DO, Chaparrita A Fast DO, Chaparrita A DOPPLER ULTRASOUND OF RIGHT On: 22-Oct-2015 Intent CAROTID ARTERY (27895)By: Fast DO, Chaparrita A Fast DO, Chaparrita A MAMMOGRAM, SCREENING, BOTH BREAST On: 22-Oct-2015 Intent (48783)By: Fast DO, Chaparrita A Fast DO, Chaparrita [...] A Flu Vaccine (Quadrivalent) On: 11-Feb-2015 Intent 84683Zs: Fast DO, Chaparrita A Fast DO, Chaparrita A EKG (11837)By: Fast DO, Chaparrita A On: 05-Nov-2014 Intent Fast DO, Chaparrita A Comments: ekg showed normal sinus rhythym, normal axis, no acute st/t wave changes left axis DRAIN/INJECT SMALL JOINT OR BURSA On: 07-Oct-2014 Intent ()By: Keri Singh MD MAMMOGRAM, SCREENING, BOTH BREAST On: 02-Aug-2014 Intent (19554)By: Chaparrita Albrecht DO A Ambrocio Comments: meera DO, Chaparrita A Cartoid DopplerBy: Fast DO, Chaparrita On: 02-Aug-2014 Intent A Fast DO, Chaparrita A DEXA SCAN AXIAL SKELETON On: 09-Apr-2014 Intent (33842)By: Ambrocio WOLFF, Chaparrita A Fast DO, Chaparrita A Prevnar 13 (76199)By: Ambrocio WOLFF, On: 30-Jan-2014 Intent Chaparrita A Fast DO, Chaparrita A Comments: Lot:[id number]:05/20Dose:0.5Route:imSite:l armGiven By:Jarred signed FLU VAC, SPLIT, >3 YEARS, On: 16-Jan-2014 Intent INTRAMUSC (80913)By: Ambrocio WOLFF, Comments: Lot #:[id number] date:12/2015Amount given:0.5mlRoute: IMSite given: left deltoidGiven by: CARMELINA Hook DO, Chaparrita A ADMINISTRATION OF INFLUENZA VIRUS On: 16-Jan-2014 Intent VACCINE (G0008)By: Ambrocio WOLFF Chaparrita A Fast DO, Chaparrita A EKG (57154)By: Ambrocio WOLFF, Chaparrita A On: 17-Oct-2013 Intent Fast DO, Chaparrita A Comments: ekg showed normal sinus rhythym, left axis, no acute st/t wave changes Radiology - Chest- PA and LatBy: On: 17-Sep-2013 Intent Fast DO, Chaparrita A Fast DO, Chaparrita A Aerosol Treatment (70858)By: Ambrocio On: 17-Sep-2013 Intent DO, Chaparrita A Fast DO, Chaparrita A MRI - BrainBy: Ambrocio DO, Chaparrita A On: 22-Jul-2013 Intent Fast DO, Chaparrita A Cartoid DopplerBy: Fast DO, Chaparrita On: 20-Jul-2013 Intent A Fast DO, Chaparrita A MAMMOGRAM, SCREENING, BOTH On: 20-Jul-2013 Intent BREASTS (05650)By: Ambrocio WOLFF Chaparrita A Fast DO, Chaparrita A Eprescribed prescriptions On: 20-Jul-2013 Intent (Leighann8553)By: Ambrocio WOLFF Chaparrita A Fast DO, Chaparrita A Eprescribed prescriptions On: 02-Feb-2013 Intent (G8553)By: Марина Concepcion FLU VAC, SPLIT, >3 YEARS, On: 03-Jan-2013 Intent INTRAMUSC (88370)By: Jamey, Comments: Lot #:[id number] date:mount given:0.5mlRoute: IMSite given: L dltdVIS and ABN signedGiven by: CARMELINA Hook ADMINISTRATION OF INFLUENZA VIRUS On: 03-Jan-2013 Intent VACCINE (G0008)By: Марина Concepcion CT - Abdomen & Pelvis (IV On: 17-Oct-2012 Intent Contrast Needed)By: Ambrocio WOLFF, Comments: patient will be calling to set up Chaparrita A Fast DO, Chaparrita A Eprescribed prescriptions On: 10-Oct-2012 Intent (G8553)By: Марина Concepcion Ear Irrigation (66382)By: [place], On: 13-Jun-2012 Intent Ivy Comments: Ear Irrigation performed on: right earAmount/color removed cerumen: light brown, small amount removedOUtcome:Pt toleratedUsed wax curettes Wax Currettes (23942)By: [place], On: 13-Jun-2012 Intent Ivy PNEUM VAC ADLT/IMUMNOSPR, On: 13-Jun-2012 Intent SBC/INTRM (14429)By: Ambrocio WOLFF, Comments: Lot:[id number]:09/09/13Dose:0.5mLRoute:IMSite:L armGiven By:BHUMI signed Chaparrita A Fast DO, Chaparrita A EKG (56318)By: Ambrocio DO, Chaparrita A On: 13-Jun-2012 Intent [...] Intent (G8553)By: Марина Concepcion MAMMOGRAM, SCREENING, BOTH On: 28-Dec-2011 Intent BREASTS (63471)By: Fast DO, Chaparrita A Fast DO, Chaparrita A DXA, BONE DENSITY, AXIAL SKELETON On: 28-Dec-2011 Intent (15849)By: Fast DO, Chaparrita A Fast DO, Chaparrita [...] SPLIT, >3 YEARS, On: 28-Dec-2011 Intent INTRAMUSC (04420)By: Jamey, Comments: Lot #:[id number] date:mount given:0.5mlRoute: IMSite given: left deltoidGiven by: CARMELINA Hook ADMINISTRATION OF INFLUENZA VIRUS On: 28-Dec-2011 Intent VACCINE (G0008)By: Марина Concepcion Aerosol Treatment (56075)By: On: 30-Nov-2011 Intent Johanna Chang CNP CT - Abdomen & PelvisBy: Ambrocio DO, On: 21-Sep-2011 Intent Chaparrita A Fast DO, Chaparrita A Comments: with special cuts through the kidney- october EKG (92973)By: Марина Concepcion On: 15-Jun-2011 Intent Comments: ekg [...] Comments: Call results to Dr. Albrecht @ [phone] as soon as resulted please. DO, Chaparrita A Eprescribed prescriptions On: 11-Jan-2011 Intent (G8553)By: Fast DO, Chaparrita A Fast DO, Chaparrita A MAMMOGRAM, SCREENING, BOTH On: 11-Jan-2011 Intent BREASTS (18799)By: Fast DO, Chaparrita A Fast DO, Chaparrita A CT - Sinuses CompleteBy: Fast DO, On: 11-Jan-2011 Intent Chaparrita A Fast DO, Chaparrita A Cartoid DopplerBy: Fast DO, Chaparrita On: 11-Jan-2011 Intent A Fast DO, Chaparrita A ADMINISTRATION OF INFLUENZA VIRUS On: 11-Jan-2011 Intent VACCINE (G0008)By: Марина Concepcion FLU VAC, SPLIT, >3 YEARS, On: 11-Jan-2011 Intent INTRAMUSC (64813)By: Марина Concepcion Eprescribed prescriptions On: 12-Oct-2010 Intent (G8553)By: Fast DO, Chaparrita A Fast DO, Chaparrita A Renal DopplerBy: Fast DO, Chaparrita A On: 12-Oct-2010 Intent Fast DO, Chaparrita A Cartoid DopplerBy: Fast DO, Chaparrita On: 12-Oct-2010 Intent A Fast DO, Chaparrita A Comments: sept TDAP VACCINE >7 IM (32048)By: On: 13-May-2010 Intent HlusHelena cornejo LPN Comments: Lot #[id number]-4/25/13Site-left deltoidgiven by:[facility] EKG (34118)By: Марина Concepcion On: 13-May-2010 Intent Comments: ekg showed normal sinus rhythym, normal axis, no acute st/t wave changes Aerosol Treatment ([id number])By: On: 22-Dec-2009 Intent Janaeolivia PERSONNEL RECRUITER, Johanna Stockton Cartoid DopplerBy: Fast DO, Chaparrita On: 01-Dec-2009 Intent A Fast DO, Chaparrita A MAMMOGRAM, SCREENING, BOTH On: 01-Dec-2009 Intent BREASTS ([id number])By: Fast DO, Chaparrita A Fast DO, Chaparrita A DXA, BONE DENSITY, AXIAL SKELETON On: 01-Dec-2009 Intent ([id number])By: Fast DO, Chaparrita A Fast DO, Chaparrita A Ultrasound - SpleenBy: Fast DO, On: 17-Jun-2009 Intent Chaparrita A Fast DO, Chaparrita A EKG ([id number])By: Марина Concepcion On: 10-Mar-2009 Intent Comments: ekg showed normal sinus rhythym, normal axis, no acute st/t wave changes FLU VAC, SPLIT, >3 YEARS, On: 09-Jan-2009 Intent INTRAMUSC ([id number])By: Stacy Jorge Comments: Lot #[id number]-left deltoidDose0.5mlgiven by Marycarmen Jorge LPN ADMINISTRATION OF INFLUENZA VIRUS On: 09-Jan-2009 Intent VACCINE ([id number])By: Stacy Jorge MAMMOGRAM, SCREENING, BOTH On: 04-Dec-2008 Intent BREASTS ([id number])By: Fast DO, Chaparrita A Fast DO, Chaparrita A MAMMOGRAM, SCREENING, BOTH On: 03-Sep-2008 Intent BREASTS ([id number])By: Fast DO, Chaparrita A Fast DO, Chaparrita A FLU VAC, SPLIT, >3 YEARS, On: 16-Jan-2008 Intent INTRAMUSC ([id number])By: Gilmer CESAR, Comments: Lot #: [id number] date: 09/10Amount given: 0.5 mlRoute: IMSite given: Left deltoidGiven by: Olivia Bell LPN Janet ADMINISTRATION OF INFLUENZA VIRUS On: 16-Jan-2008 Intent VACCINE (G0008)By: Janet Scherer RN EKG ([id number])By: Fast DO, Chaparrita A On: 29-Aug-2007 Intent Fast DO, Chaparrita A Comments: done km ADMINISTRATION OF PNEUMOCOCCAL On: 29-Aug-2007 Intent VACCINE ([id number])By: Ambrocio WOLFF, Chaparrita A Fast DO, Chaparrita A PNEUM VAC ADLT/IMUMNOSPR, On: 29-Aug-2007 Intent SBC/INTRM ([id number])By: Ambrocio WOLFF, Comments: 0.5cc given im lt arm [id number] exp 02-13-08 Chaparrita A Fast DO, Chaparrita A DXA, BONE DENSITY, AXIAL SKELETON On: 29-Aug-2007 Intent ([id number])By: Fast DO, Chaparrita A Fast DO, Chaparrita A MAMMOGRAM, SCREENING, BOTH On: 29-Aug-2007 Intent BREASTS ([id number])By: Ambrocio DO, Chaparrita A Fast DO, Chaparrita [...] medical issues: she has been working with [employer] and trying to work on that- she got rid of respiratory infection but was sick for weeks and was on pred so her sugar up and chol up a bit- trying to add protein shakes drink more water- she is starting back at [facility]- diarrhea resolved- we did talk about going [...] that she had episode where went to [facility] and she couldnt remember where she was- [...] are all in low 100s-130- going to [place] for a month next monthEncounter Diagnosis: Nonsmoker, [...] Eddie and bp is good she joined [employer] sugar up bit doi ng ice cream-the bone density reviewed little thinner she not exercising routienly until just recent at [employer] and sees kidney doc next week and [...] maribel cordelia in hospice - going [facility] end of month- too much to care [...] - has etoh /drug addiction- sister in [facility] e with alzheimers- she not depressed but [...] visual acuity (yearly). Note for Physical exam: [facility] Physical- Talk about trying Myrbetriq., [ADDITIONAL REASON] Follow up, Laboratory Test Results - [facility]: [facility] , [ADDITIONAL REASON] Itching [...] Meningioma (Renamed from ABNRM RESULT, FUNCTION STUDY, BRAIN/GLAZIER METAL FURNITURE NEC (794.09)) [facility] Office Visit [...] Meningioma (Renamed from ABNRM RESULT, FUNCTION STUDY, BRAIN/GLAZIER METAL FURNITURE NEC (794.09)), Diabetes, Type II, controlled (250.00), [...] Meningioma (Renamed from ABNRM RESULT, FUNCTION STUDY, BRAIN/GLAZIER METAL FURNITURE NEC (794.09)), Colon Polyp [facility] [...] Meningioma (Renamed from ABNRM RESULT, FUNCTION STUDY, BRAIN/GLAZIER METAL FURNITURE NEC (794.09)), OCCLUSION AND STENOSIS OF CAROTID [...] Meningioma (Renamed from ABNRM RESULT, FUNCTION STUDY, BRAIN/GLAZIER METAL FURNITURE NEC (794.09)), Chronic glomerulonephritis with lesion of [...] Meningioma (Renamed from ABNRM RESULT, FUNCTION STUDY, BRAIN/GLAZIER METAL FURNITURE NEC (794.09)), Other and unspecified hyperlipidemia (272.4), [...] Meningioma (Renamed from ABNRM RESULT, FUNCTION STUDY, BRAIN/GLAZIER METAL FURNITURE NEC (794.09)) [facility] Visit [...] Meningioma (Renamed from ABNRM RESULT, FUNCTION STUDY, BRAIN/GLAZIER METAL FURNITURE NEC (794.09)), Gerd (530.81), Hyperlipidemia, Unspecified (272.4), [...] Meningioma (Renamed from ABNRM RESULT, FUNCTION STUDY, BRAIN/GLAZIER METAL FURNITURE NEC (794.09)), Hypertension,benign(401.1), OCCLUSION AND STENOSIS OF [...] Meningioma (Renamed from ABNRM RESULT, FUNCTION STUDY, BRAIN/GLAZIER METAL FURNITURE NEC (794.09)), Diabetes, Type II, controlled (250.00), [...] Meningioma (Renamed from ABNRM RESULT, FUNCTION STUDY, BRAIN/GLAZIER METAL FURNITURE NEC (794.09)), Hypertension,benign(401.1), Osteopenia (733.90), Depression (311.), [...] weight down 23 pounds- and trying joined [employer]- she feels well - she increased celexa [...] Meningioma (Renamed from ABNRM RESULT, FUNCTION STUDY, BRAIN/GLAZIER METAL FURNITURE NEC (794.09)), Chronic glomerulonephritis with lesion of [...] Meningioma (Renamed from ABNRM RESULT, FUNCTION STUDY, BRAIN/GLAZIER METAL FURNITURE NEC (794.09)) End: 26-Jan-2011 16:53 [facility] Office Visit On: 19-Jan-2011 14:30 Encounter Diagnosis: brain tumor End: 21-Sep-2011 8:09 [facility] Phone Encounter On: 19-Jan-2011 13:41 Encounter Diagnosis: ABNRM RESULT, FUNCTION STUDY, BRAIN/GLAZIER METAL FURNITURE NEC (794.09) End: 19-Jan-2011 13:44 [facility] [...] (V04.81), Degenerative Disc Disease - Lumbar (722.52), [facility] Office Visit On: 06-Dec-2007 [...] Disease - Lumbar (722.52), Osteopenia (733.90), Hypertension,benign(401.1), [facility] Historical Summary On: 30-Aug-2007 [...] WITH RADICULOPATHY (724.4) [facility] Payers MedicareAARP/[facility] HOSPITALGAGAN ALBERT; olivia guarantor
--- OUTSIDE RECORDS SUMMARY | 2018-06-25 22:41 | XMS RPT_ITS ---
:1940 Author Organization OHIP Care Team Providers Name Role Phone Fast DO, Chaparrita A Attending Unavailable Fast DO, Chaparrita A Referring Unavailable Fast DO, Chaparrita A Consulting Unavailable Fast, Chaparrita Attending Unavailable Fast, Chaparrita Referring Unavailable Fast, Chaparrita Primary Care Unavailable Bonezzi, Kate Attending Unavailable Bonezzi, Kate Referring Unavailable Fast, Chaparrita Primary Care Unavailable Fast, Chaparrita Attending Unavailable Fast, Chaparrita Primary Care Unavailable Fast, Chaparrita Attending Unavailable Fast, Chaparrita Referring Unavailable Fast, Chaparrita Primary Care Unavailable Jabour, Vincent Attending Unavailable Fast, Chaparrita Primary Care Unavailable Jabour, Vincent Referring Unavailable Fast, Chaparrita Attending Unavailable Fast, Chaparrita Primary Care Unavailable Fast, Chaparrita Attending Unavailable Fast, Chaparrita Referring Unavailable Fast, Chaparrita Primary Care Unavailable Chuckie Cormier Attending Unavailable Fast, Chaparrita Referring Unavailable PROBLEMS PROBLEMS DATE TYPE CONDITION / CODE ATTENDING STATUS SOURCE 01/13/2018 Unknown I35.0 - [place], [place] Active [facility]heumatic [facility] aortic (valve) Hospital stenosis / Repository I35.0(ICD-10) 12/06/2017 Unknown Z12.31 - Encounter Chaparrita Albrecht Active [facility] for screening Community mammogram for Hospital malignant neoplasm Repository of breast / Z12.31(ICD-10) 05/14/2017 Unknown R19.7 - Diarrhea, Chaparrita Albrecht Active [place] unspecified / Community R19.7(ICD-10) Hospital Repository PROCEDURES PROCEDURES No Procedure Records FoundRESULTS RESULTS KNEE 4 OR MORE Observed: 04/21/2018 Status: F Source: [place] VIEWS 11:29 AM [facility] REPOSITORY [facility] Imaging Services [address] [place] [address] Knee 4 or More Views MR#: [id number] Acct: [id number] Name: KATEY ALBERT Rep #: [id number] : 1940 F 78 From: Mikel Marte MD PCP: Chaparrita Albrecht DO Status: REG CLI Study: Knee 4 or More Views Date of Exam: 04/21/18 Exam# [id number] Ordering Dr: Chaparrita Albrecht DO STUDY: X-RAY - RIGHT KNEE REASON FOR EXAM: Female, 78 years old. Right knee pain TECHNIQUE: 4 view(s) of the knee. COMPARISON: 03/11/2015. FINDINGS: Normal visualized distal femur. Normal visualized proximal [...] Signed: Mikel Marte MD at 13:58 EST , Service support , CC: Chaparrita Albrecht DO Inspector Plug Seam: Signed KNEE 4 OR MORE Observed: 04/21/2018 Status: F Source: [place] VIEWS 11:28 AM [facility] REPOSITORY [facility] Imaging Services [address] [place] [address] Knee 4 or More Views MR#: [id number] Acct: [id number] Name: KATEY ALBERT Rep #: [id number] : 1940 F 78 From: Misael Winters MD PCP: Chaparrita Albrecht DO Status: REG CLI Study: Knee 4 or More Views Date of Exam: 04/21/18 Exam# [id number] Ordering Dr: Chaparrita Albrecht DO STUDY: X-RAY - LEFT KNEE REASON FOR EXAM: Female, 78 years old. Pain. TECHNIQUE: 4 view(s) of the knee. COMPARISON: Comparison is made with prior study dated March 11, 2016. FINDINGS: Degenerative spurring along the medial femoral condyle. Normal visualized proximal tibia and fibula. Normal proximal tibiofibular articulation. There is moderate degenerative arthrosis of the medial femorotibial compartment with moderate joint space narrowing. There is moderate degenerative arthrosis of the lateral femorotibial compartment with moderate joint space narrowing. There is moderate degenerative arthrosis of the patellofemoral articulation. There is a 8.2 mm well- defined bony density in the intercondylar notch. A smaller bony density seen adjacent to this. Intra-articular loose bodies should be ruled out. Joint effusion. Vascular calcification. RAD/Knee 4 or More Views IMPRESSION: Degenerative arthrosis. This has progressed as compared to prior study. Electronically Signed: Misael Winters MD at 14:29 EST Tel [phone], Service support , CC: Chaparrita Albrecht DO Inspector Plug Seam: Signed ECHOCARDIOGRAM COMPLETE Observed: 12/19/2017 Status: F Source: [place] 10:22 AM [facility] REPOSITORY [facility] Cardiovascular Services [address] [place] [address] Echo Complete 12/19/17 0800 MR#: [id number] Acct: [id number] Name: KATEY ALBERT Rep #: [id number] : 1940 77 From: Chuckie Cormier MD Attending Dr: Chaparrita Albrecht DO Status: REG CLI Ordering Dr: Chaparrita Albrecht DO Date: 12/19/17 Location: [facility] Sex: F C Admitted: Reason For Study: Aortic Valve Disorder Procedure This was a 2D [...] is normal size. Normal inferior vena cava. Pericardium/Pleural No pericardial effusion. MMode/2D Measurements AND Calculations LVIDd: 4.4 cm IVSd: 0.72 cm Ao root diam: 3.7 cm LVIDs: 2.7 cm LVPWd: 0.86 cm RVDd: 3.8 cm FS: 38.5 % LAV(MOD-bp): 54.3 ml LA A4 area: 17.9 cm2 RA A4 area: 15.6 cm2 LAV(MOD-bp) Indexed: 30.9 ml/m2 LAV(MOD-sp2): 51.4 ml LAV(MOD-sp4): 53.1 ml Time Measurements MV dec time: 0.24 sec Doppler Measurements AND Calculations MV E max rickie: 104.6 cm/sec Lat Peak E' Rickie: 8.2 cm/sec Med Peak E' Rickie: 7.9 cm/sec MV A max rickie: 118.1 cm/sec E/E' lat: 12.8 E/E' med: 13.2 MV E/A: 0.89 MV V2 max: 127.1 cm/sec MV P1/2t max rickie: 85.7 cm/sec Ao V2 max: 149.8 cm/sec [...] PA V2 max: 92.5 cm/sec TR max rickie: 293.3 cm/sec LV V1 max P.0 mmHg TR max P.4 mmHg LV V1 mean P.3 mmHg LV V1 mean: 69.6 cm/sec LV V1 VTI: 26.6 cm Interpretation Summary Normal LV size. Left ventricular systolic function is normal. The estimated ejection fraction is 55 %. Stage 1 diastolic dysfunction. Mild focal aortic valve calcification. Ordering Physician: Chaparrita Albrecht Referring Physician: Chaparrita Albrecht Performed By: Jake Baugh RCS 12/19/17 1022 Date Chuckie Cormier MD CC: Chaparrita Albrecht DO Date Dictated: 12/19/17 0800 Date Transcribed: 12/19/17 1022 Inspector Plug Seam: Signed CAROTID DUPLEX Observed: 12/07/2017 Status: F Source: [place] ULTRASOUND 8:10 AM [facility] Cardiovascular Services [address] [place] [address] Carotid Duplex Ultrasound 12/06/17 0901 MR#: [id number] Acct: [id number] Name: KATEY ALBERT Rep #: [id number] : 1940 77 From: Anurag Loya MD Attending Dr: Chaparrita Albrecht DO Status: REG CLI Ordering Dr: Chaparrita Albrecht DO Date: 12/06/17 Location: [facility] Sex: F C Admitted: Reason For Study: STENOSIS Rt. Velocities/BP Lt. Velocities/BP Prox CCA 73.9/17 cm/sec. Prox CCA 68.6/18.2 cm/sec. Mid CCA 53/14.9 cm/sec. Mid CCA 60.4/18.8 cm/sec. Dist CCA 51.5/16.5 cm/sec. Dist CCA 59.8/16.4 cm/sec. Prox ICA 47.1/16.9 cm/sec. Prox ICA [...] the left vertebral artery. Procedure Carotid Duplex 86582. Exam performed in department. Interpretation Summary Mild (<50%) stenosis right extracranial internal carotid. Mild (<50%) stenosis left extracranial internal carotid. Flow within the vertebral arteries is antegrade bilaterally. Ordering Physician: Chaparrita Albrecht Performed By: Margot Benton RVT and Student 12/07/17 0809 Date Anurag Loya MD CC: Chaparrita Albrecht DO Date Dictated: 12/06/17900 Date Transcribed: 12/07/17808 Inspector Plug Seam: Signed SCREENING MAMM (CAD), Observed: 12/06/2017 Status: F Source: [place] BILAT 8:19 AM [facility] REPOSITORY [facility] Imaging Services [address] [place] [address] SCREENING MAMM (CAD), BILAT MR#: [id number] Acct: [id number] Name: KATEY ALBERT Rep #: [id number] : 1940 F 77 From: Misael Winters MD PCP: Chaparrita Albrecht DO Status: REG CLI Study: SCREENING MAMM (CAD), BILAT Date of Exam: 12/06/17 Exam# [id number] Ordering Dr: Chaparrita Albrecht DO MAMMOGRAPHY - [...] delay biopsy of a clinically suspicious abnormality. [id number] Electronically Signed: Misael Winters MD at 15:31 EDT Tel [phone], Service support , CC: Chaparrita Albrecht DO Inspector Plug Seam: Signed COLON BIOPSY (CHOOSE Observed: 09/16/2017 Status: F Source: [place] SITE) 9:30 AM [facility] REPOSITORY Patient: KATEY ALBERT : 1940 (77/F) Acct Num: [id number] Phys: EddpandaMarcus Unit Num: [id number] Loc: LABSPEC Specimen: [id number] Received: 09/16/17 - 1529 Spec Type: COLON BX TISSUES TISSUES: A. Sigmoid colon biopsy B. Transverse colon GROSS DESCRIPTION A - Received in fixative is one container labeled with the patient's name and designated proximal sigmoid polyp. The specimen consists of multiple irregular fragments of light camacho soft tissue mixed with fecal material that in aggregate measure 1 x 0.5 x 0.1 cm. The specimen is totally submitted in one cassette. B - Received in fixative is one container labeled with the patient's name and designated transverse colon. The specimen consists of two irregular fragments of light camacho soft tissue that in aggregate measure 0.4 x 0.2 x 0.1 cm. The specimen is totally submitted in one cassette. / MARCY:dustin 09/19/17 TC:1 CPT: 62560 x2 HEADER OPERATION: Colonoscopy PRE-OP DIAGNOSIS: History of polyps TISSUE SUBMITTED: A Proximal sigmoid polyp, rule out adenoma, B Transverse colon, rule out adenoma MICROSCOPIC DESCRIPTION Slides are reviewed. MICROSCOPIC DIAGNOSIS A. Proximal sigmoid polyp, biopsy: Fragments of tubular adenoma. B. Transverse colon polyp, biopsy: Fragments of tubular adenoma. MARCY:dustin 09/20/17 Signed Nacho Ardon 09/20/17 <signature on file> Performed By: #### PCOLBX #### [facility] [address] [place], [address] BRAIN W/WO CONTRAST Observed: 06/10/2017 Status: F Source: [place] 1:19 PM COUNTS INCLUDE 234 BEDS AT THE [facility] H[facility] REPOSITORY [facility] Imaging Services [address] [place] [address] Brain W/WO Contrast MR#: [id number] Acct: [id number] Name: KATEY ALBERT Rep #: [id number] : 1940 F 77 From: Laya Montilla MD PCP: Chaparrita Albrecht DO Status: REG CLI Study: Brain W/WO Contrast Date of Exam: 06/10/17 Exam# [id number] Ordering Dr: Chaparrita Albrecht DO STUDY: MRI BRAIN WITH AND WITHOUT CONTRAST REASON FOR EXAM: Female, 77 years old. New onset headaches. Follow-up of meningioma. TECHNIQUE: Standardized multiplanar fat and water weighted pulse sequences were obtained. 7 ml of Gadavist contrast material was administered intravenously for the contrast portion of the examination. COMPARISON: MRI of the brain dated August 09, 2012. FINDINGS: There is mild cerebral atrophy with widening of the extra- axial spaces and ventricular dilatation. There are multiple white matter hyperintensities, distributed throughout the deep white matter tracts of the cerebral hemispheres, consistent with moderate chronic white matter ischemic changes. There is an apparent focus of restricted diffusion within the left paramedian klaus best seen on diffusion weighted image number 9. This is of uncertain clinical significance. There is no other evidence for recent intracranial ischemia or other cause of cytotoxic edema on diffusion weighted imaging (DWI). Normal T2* images of the brain without demonstrated susceptibility artifact. There is no demonstrated hemosiderin stain. There are prominent perivascular spaces (PVS) involving the basal ganglia. There is a focus of abnormal signal in the right thalamus, similar to the previous study. This may be the result of previous infarct. There is no extra-axial fluid accumulation. Normal flow voids within the major intracranial circulation suggesting patency by spin echo criteria. Normal venous enhancement. There is an extra-axial mass in the right anterior cranial fossa abutting the right frontal lobe. This mass measures approximately 1.7 x 1.6 x 2 cm in size. There appears to be a dural tail. There is associated abnormal signal within the right frontal lobe that is abnormally bright on the T2-weighted images. This is similar to the previous MRI. Normal sella turcica, pituitary gland, infundibular stalk, optic chiasm and hypothalamus. Normal tectal plate and pineal gland. Normal midbrain, klaus and medulla. Normal cerebellum. There are large basal cisterns. There is moderate abnormal signal within the left mastoid and mild right-sided mastoid abnormal T2 hyperintensity. This is new since the previous MRI. Normal bilateral internal auditory canals. There are bilateral [...] extra-axial mass with a moderate amount of abnormal signal within the adjacent right frontal lobe. 3. A questionable small infarct in the left paramedian klaus. 4. Bilateral mastoid disease, left greater than right. Electronically Signed: Laya Montilla MD at 14:28 EST , Service support , CC: Chaparrita Albrecht DO Inspector Plug Seam: Signed Observed: 05/13/2017 Status: F Source: [place] CDIFF (MOLECULAR) 12:00 AM [facility] REPOSITORY Cdiff-Molecular Normal Reference Range = Negative C. Diff DNA Negative- No toxigenic C. Diff DNA Detected NAAT METHOD Testing was performed using nucleic acid amplification Performed By: #### [id number] #### [facility] [place], [address] CHEST PA AND LATERAL Observed: 05/05/2017 Status: F Source: [place] 9:59 AM [facility] REPOSITORY [facility] Imaging Services [address] [place] [address] Chest PA and Lateral MR#: [id number] Acct: [id number] Name: KATEY ALBERT Rep #: [id number] : 1940 F 77 From: Edwar Patino MD PCP: Chaparrita Albrecht DO Status: REG CLI Study: Chest PA and Lateral Date of Exam: 05/05/17 Exam# [id number] Ordering Dr: Kate Singh MD STUDY: X-RAY CHEST REASON FOR EXAM: Female, 77 years old. Cough. TECHNIQUE: Frontal and lateral views of the chest. COMPARISON: None. FINDINGS: The lungs are mildly hyperexpanded. There is a mild diffuse interstitial pattern. There is no demonstrated pleural abnormality. There is borderline cardiomegaly. Normal mediastinum and laurence. Normal visualized pulmonary arteries. There is aortic tortuosity with calcification. There are diffuse degenerative changes of the visualized thoracic spine. Normal visualized ribs, clavicles, and shoulders. There is no demonstrated abnormality of the visualized soft tissue structures of the upper abdomen. RAD/Chest PA and Lateral IMPRESSION: Borderline cardiomegaly with hyperexpansion and diffuse interstitial pattern. No acute abnormalities are present. Electronically Signed: Edwar Patino MD at 10:17 EST , Service support , CC: Kate Singh MD; Chaparrita Albrecht DO Inspector Plug Seam: Signed ALLERGIES ALLERGIES DATE TYPE / CODE NAME / CODE REACTION SEVERITY SOURCE 04/20/2016 Drug morphine/F00 Shortness of Unknown [facility] Allergy/4160 4235130([facility] 88552(SNOMED RM) Repository CT) ENCOUNTERS ENCOUNTERS ADMIT/DISCHARGE ACCOUNT ADMITTING ENCOUNTER LOCATION SOURCE NUMBER CLASS 04/21/2018 [id number] [place] [facility] ing:HPRAD Repository 03/22/2018 56553 Ambulatory Building:[facility] Practices Repository 12/19/2017 [id number] Amb[place] 4 [facility] ing:CVS Repository 12/19/2017 [id number] Ambulatory BMSBuilding:W [place] 5 [facility] Repository 12/06/2017 [id number] Ambulatory [facility] [place] 5 [facility] ing:[facility] Repository 09/16/2017 [id number] Ambulatory [place] 5 [facility] ing:LABSPEC Repository 06/10/2017 [id number] Ambulatory [facility] [place] 8 [facility] ing:MRI Repository 05/13/2017 [id number] Ambulatory [facility] [place] 4 [facility] ing:LABSPEC Repository 05/05/2017 [id number] Ambulatory [facility] [place] 1 [facility] ing:HPRAD Repository PAYERS PAYERS ENCOUNTER GUARANTOR PAYER SUBSCRIBER SOURCE 04/21/2018 KATEY Mandujano Primary KATEY J [place] [id number] Insurance:MEDICARE MORROWDOB: [facility]ly [facility] KAITLYN WOLFF PART A [facility] [id number] Number: Repository [address]Elh: [phone] [id number] [phone] () Date:2018-04-21 04/21/2018 Secondary KATEY J [place] Insurance:AARPPolicy MORROWDOB: Formerly [facility] Number: [id number] Hospital [id number] Repository Date:7659-80-43[address], [place] [address]LZ: 04/21/2018 Tertiary NOT GIVENUNK [place] Insurance:SELF PAY [facility] Number: Effective Repository Date:2018-04-21 03/22/2018 KATEY J Primary KATEY J [facility] Practices MORROWDOB: Insurance:MedicarePol MORROWDOB: Repository [id number] icy Number: [id number] Kaitlyn [id number] 8 [place]lyn [place], [place] Date:6058-64-07[place]ll[place], [place] [address]Igx: (534) Name:[facility] [address] [address]Hci: (HP) [address]45555Ejq[place]hy, [place] [phone] (HP) [address]RN: 03/22/2018 Secondary KATEY J [facility] Practices Insurance:AARP/UHCPol MORROWDOB: Repository icy Number: [id number] 8 [place] Date:5380-12-22[place]vfm[place], [place] Name:[facility] [address] [address]Vud: [id number], [place] ~([phone]: [phone] 12/19/2017 KATEY J Primary KATEY J [place] [id number] Insurance:MEDICARE MORROWDOB: Formerly [facility] [place] PART A [facility] [id number], [place] Number: Repository [phone]: [phone]) [id number] [phone] (HP) Date:2017-12-16 12/19/2017 Secondary KATEY J [place] Insurance:AARPPolicy MORROWDOB: Community Number: [id number] Hospital [id number] Repository Date:6791-58-56ZK [address]TFBKVJE, [place] [address]UY: 12/19/2017 Tertiary NOT GIVENUNK [place] Insurance:SELF PAY [facility] Number: Effective Repository Date:2017-12-16 12/19/2017 KATEY J Primary KATEY J [place] [id number] Insurance:MEDICARE MORROWDOB: Formerly [facility] [place] PART A [facility] [id number], [place] Number: Repository [address]Hdx: [phone] [id number] [phone] (HP) Date:2017-12-16 12/19/2017 Secondary KATEY J [place] Insurance:AARPPolicy MORROWDOB: Community Number: [id number] [place] [address] [id number] Repository Date:8289-18-98JF [address]E[address], [place] [address]MZ: 12/19/2017 Tertiary NOT GIVENUNK [place] Insurance:SELF PAY [facility] Number: Effective Repository Date:2017-12-19 12/06/2017 Katey J Primary Katey J [place] [id number] Insurance:MEDICARE MorrowDOB: Community [place] PART A [id number] [place] Number: Repository [address]Tnh: [phone] [id number] [phone] (HP) Date:2017-09-12 12/06/2017 Secondary Katey J [place] Insurance:AARPPolicy MorrowDOB: Community Number: [id number] Hospital [id number] Repository Date:5833-98-72BA [facility] [address], [place] [address]XD: 12/06/2017 Tertiary NOT GIVENUNK [facility] Insurance:SELF PAY [facility] Number: Effective Repository Date:2017-09-12 09/16/2017 Katey J Primary Katey J [place] [id number] Insurance:MEDICARE MorrowDOB: Community [place] A [facility] [id number], [place] Number: Repository [address]Ojo: [id number] [phone] Date:2017-09-16 () 09/16/2017 Secondary Katey J [facility] Insurance:AARPPolicy MorrowDOB: Community Number: [id number] Hospital [id number] Repository Date:2820-24-04IY [facility] 2535[place]VJWPUTT, [place] [address]CK: 09/16/2017 Tertiary NOT GIVENUNK [facility] Insurance:SELF PAY [facility] Number: Effective Repository Date:2017-09-16 06/10/2017 Katey J Primary Katey J [place] [id number] Insurance:MEDICARE MorrowDOB: Formerly [facility] [place] PART A [facility] [id number], [place] Number: Repository [address]Eah: [id number] [phone] Date:2017-06-06 () 06/10/2017 Secondary Katey J [facility] Insurance:AARPPolicy MorrowDOB: Community Number: [id number] Hospital [id number] Repository Date:8938-48-60SN [facility] [id number], [place] [address]AE: 06/10/2017 Tertiary NOT GIVENUNK [place] Insurance:SELF PAY [facility] Number: Effective Repository Date:2017-06-06 05/13/2017 Katey J Primary Katey J [place] [id number] Insurance:MEDICARE MorrowDOB: Formerly [facility] [place] PART A [facility] [id number], [place] Number: Repository [address]Lke: [id number] [phone] Date:2017-05-13 () 05/13/2017 Secondary Katey J [place] Insurance:AARPPolicy MorrowDOB: Community Number: [id number] Hospital [id number] Repository Date:7364-70-87BU [address]AVGUZ, [place] [address]TE: 05/13/2017 Tertiary NOT GIVENUNK [place] Insurance:SELF PAY [facility] Number: Effective Repository Date:2017-05-13 05/05/2017 Katey J Primary Katey J [place] [id number] Insurance:MEDICARE MorrowDOB: Formerly [facility] [place] PART A [facility] [id number], [place] Number: Repository [address]Lkj: [id number] [phone] Date:2017-05-05 () 05/05/2017 Secondary Katey J [place] Insurance:AARPPolicy MorrowDOB: Community Number: [id number] [place] [address] [id number] Repository Date:2122-51-38RH [address]QLXXCGY, [place] [address]VL: 05/05/2017 Tertiary NOT GIVENUNK [place] Insurance:SELF PAY [facility] Number: Effective Repository Date:2017-05-05
== END ==
PROVIDERS: Family Provider Internal Medicine; PCP Internal Medicine; Referring Provider Internal Medicine; Visit Provider Internal Medicine
DX: M25.561 Pain in right knee (principal); R52 Pain, unspecified
CPT/HCPCS: 73564

== ENCOUNTER → 2018-05-01 09:51 | Outpatient (CLI) | payer MEDICARE, OTHER, SELFPAY ==
--- NOTE | 2018-05-01 10:09 | MRI_ITS ---
STUDY: MRI LEFT KNEE REASON FOR EXAM: Female, 78 years old. Osteoarthritis. Pain. TECHNIQUE: Standardized fat and water weighted pulse sequences were obtained in all 3 orthogonal planes. COMPARISON: X-ray April 21, 2018. FINDINGS: Normal medial meniscus. There is diffuse, less than 50% thickness articular cartilage loss of the medial femorotibial compartment. There is moderate osteoarthritic spur formation of the medial knee compartment. Normal medial collateral ligamentous complex (MCL). Normal distal semimembranosus, gracilis and semitendinosus tendons. There is lateral meniscus tear of the posterior horn and body, a series 3 images through . There is diffuse, full thickness articular cartilage loss of the lateral femorotibial compartment. There is moderate osteoarthritic spur formation of the lateral knee compartment. There is reactive marrow edema of the lateral femoral condyle and tibial plateau. Normal proximal tibiofibular articulation. Normal lateral collateral (fibular) ligament. Normal popliteus tendon. Normal biceps femoris tendon. Normal anterior cruciate ligament (ACL). Normal posterior cruciate ligament (PCL). There is arthrosis of the patellofemoral articulation. There is diffuse, less than 50% thickness articular cartilage loss of the patellofemoral compartment. Normal medial and lateral patellar retinaculum. Normal quadriceps tendon. Normal patellar tendon. Normal Hoffa's fat pad. There is a large volume joint effusion. There is a 0.9 cm loose body at the posterior lateral joint, series 5 image 10/01. Subcutaneous edema of the lower leg. The otherwise visualized osseous structures are unremarkable. MRI/Lower Ext Joint Only (Routine) IMPRESSION: Lateral meniscus tear. Stress injury of the lateral femoral condyle and lateral tibial plateau. Tricompartmental degenerative change. Large joint effusion with loose body. Electronically Signed: David Bennett MD at 11:52 EST , Service support ,
== END ==
PROVIDERS: Family Provider Internal Medicine; PCP Internal Medicine; Referring Provider Internal Medicine; Visit Provider Internal Medicine
DX: M17.12 Unilateral primary osteoarthritis, left knee (principal)
CPT/HCPCS: 73721

== ENCOUNTER → 2019-01-12 10:49 | Outpatient (CLI) | payer MEDICARE, OTHER, SELFPAY | PROVIDERS: Family Provider Internal Medicine; PCP Internal Medicine; Referring Provider Internal Medicine; Visit Provider Internal Medicine | DX: R09.89 Other specified symptoms and signs involving the circulatory and respiratory systems (principal) | CPT/HCPCS: 93930 ==

== ENCOUNTER 2019-02-22 15:52 | Emergency (ER) | payer MEDICARE, OTHER, SELFPAY ==
[2019-02-22 15:53] VITALS: BP 136/69; PULSE 75; RESP 14; TEMP 36.5; O2SAT 95; BMI 30.2
--- NOTE | 2019-02-22 16:04 | RAD_ITS ---
STUDY: X-RAY - RIGHT ELBOW REASON FOR EXAM: Female, 78 years old. Fall, laceration. TECHNIQUE: 3 view(s) of the elbow. COMPARISON: None. FINDINGS: No fracture or dislocation. Mild degenerative spurring of the ulnar coronoid. Joint spaces are otherwise well-maintained. The soft tissue structures are unremarkable. RAD/Elbow min 3 Views IMPRESSION: Minimal degenerative change, otherwise negative x-ray examination of the elbow. Electronically Signed: Cheryl King MD at 16:59 EST Tel , Service support ,
--- NOTE | 2019-02-22 16:04 | RAD_ITS ---
STUDY: X-RAY - PELVIS AND RIGHT HIP REASON FOR EXAM: Female, 78 years old. Fall, swelling right buttocks. TECHNIQUE: 3 views of the pelvis and hip. COMPARISON: None. FINDINGS: No fracture or dislocation. Hip joints are well-maintained. Status post lumbar fusion L3-L5. Nonobstructive bowel gas pattern. Moderate to large stool burden. Soft tissues are otherwise unremarkable. RAD/HIP, UNI W/ Pelvis 2-3 Views IMPRESSION: 1. No fracture or dislocation. 2. Moderate to large stool burden. Electronically Signed: Cheryl King MD at 17:11 EST Tel , Service support ,
--- NOTE | 2019-02-22 16:04 | RAD_ITS ---
STUDY: X-RAY - LUMBAR SPINE REASON FOR EXAM: Female, 78 years old. Fall, pain. TECHNIQUE: 3 view(s) of the lumbar spine were obtained. COMPARISON: None FINDINGS: Normal lumbar lordosis. There is no substantial scoliosis. No demonstrated fracture. Posterior fusion L3-L5. 3 mm retrolisthesis at L1-2. 5 mm anterolisthesis at L4-5. Marked disc space narrowing at L1-2 and L5-S1. Normal vertebral bodies and endplates. Normal disc space heights. Atherosclerotic calcification of the aorta. RAD/Lumbar Spine 2 or 3 Views IMPRESSION: 1. No acute findings. 2. Mild listhesis at L1-2 and L4-5. 3. Degenerative and postsurgical changes detailed above. Electronically Signed: Cheryl King MD at 17:02 EST Tel , Service support ,
[2019-02-22] MEDS: Diphth,Pertuss(Acell),Tet Vac 0.5 ML Vial IM (17:10)
--- NOTE | 2019-02-22 17:54 | ED.VISSUMM ---
- ER Visit Summary Date of Service: 02/22/19 Chief Complaint: Fall History of Present Illness: The patient is a 78 F who fell at home. She says she fell secondary to weakness. She is currently taking prednisone for a kidney condition. She says it makes her feel weak. She did not lose consciousness. She says she injured her right elbow and right buttock. She is unsure of her tetanus status. She takes aspirin but no other blood thinners. She is denying head injury or neck pain. Denies any weakness or numbness or other neurologic symptoms. Physical Examination: Afebrile and vital signs are unremarkable. She is alert and oriented. No acute distress. Head and neck atraumatic. Heart regular. Lungs clear. Abdomen soft. Right buttock region tender to palpation into the right hip region. Right elbow shows a skin tear but no deformity. Good range of motion. Neurovascular intact distally in all extremities. No focal or lateralizing neurologic findings. Test Results: X-rays of her right elbow, right hip, and lumbar spine were unremarkable. Nothing acute. Degenerative changes only. Emergency Department Course and Treatment: Patient declined pain medicine. Tetanus was updated. Skin tear was treated per nursing and dressed with antibiotic ointment. Her x-rays were unremarkable for anything acute. She was able to ambulate without any weakness or issue. She declined any additional testing regarding her history of kidney disease or for other causes of weakness. Patient will be discharged home. She declined pain medicine and has hydrocodone at home. Cautions discussed. Treatment Plan: As above Disposition: Discharged Impression: 1. Right elbow skin tear 2. Right elbow contusion 3. Right gluteal contusion This note was generated with [employer] dictation software. It may contain incorrect words, spelling, and punctuation that were not noted in review of the chart prior to signing ED Disposition - Plan for ED Patient: Referrals: Chaparrita Albrecht DO [Primary Care Provider] -
--- NOTE | 2019-02-22 17:57 | ED.DEP ---
ED Disposition - Plan for ED Patient: Instructions: Skin Avulsion, FALL, Uncertain Cause Referrals: Chaparrita Albrecht DO [Primary Care Provider] -
[2019-02-22 18:09] VITALS: BP 128/60; BP 132/65; PULSE 72; PULSE 75; RESP 14; RESP 16; O2SAT 98
== END 2019-02-22 18:20 | disposition home or self-care (01) ==
LOC: ED 17:09
PROVIDERS: Emergency Provider Emergency Medicine; Family Provider Internal Medicine; PCP Internal Medicine
DX: S51.011A Laceration without foreign body of right elbow, initial encounter (principal); S30.0XXA Contusion of lower back and pelvis, initial encounter; W19.XXXA Unspecified fall, initial encounter; Y93.9 Activity, unspecified; Y92.009 Unspecified place in unspecified non-institutional (private) residence as the place of occurrence of the external cause; Y99.9 Unspecified external cause status; Z23 Encounter for immunization; I10 Essential (primary) hypertension; I35.8 Other nonrheumatic aortic valve disorders; Z79.82 Long term (current) use of aspirin; Z87.891 Personal history of nicotine dependence
CPT/HCPCS: 72100; 73080; 73502; 90715; 99284

== ENCOUNTER → 2019-03-01 12:17 | Outpatient (CLI) | payer MEDICARE, OTHER, SELFPAY ==
[2019-02-22 15:53] VITALS: BMI 30.2
[2019-03-01 12:37] LABS: Color, Urine Yellow (Yellow); Glucose, Dipstick Normal (Normal); Ketone-Dipstick Negative (Negative); Leukocyte Esterase-Dipstick 100 /ul (Negative); Nitrite-Dipstick Negative (Negative); Occult Blood-Urine 150 /ul (Negative); Protein-Dipstick 500 mg/dl (Negative); Urine Bilirubin Dipstick Negative (Negative); Urine Clarity Clear (Clear); Urine Urobilinogen Normal (Normal)
== END ==
PROVIDERS: Family Provider Internal Medicine; PCP Internal Medicine; Referring Provider Internal Medicine; Visit Provider Internal Medicine
DX: N39.0 Urinary tract infection, site not specified (principal)
CPT/HCPCS: 81002; 87077; 87086; 87088; 87186

== ENCOUNTER → 2019-03-21 15:27 | Outpatient (CLI) | payer MEDICARE, OTHER, SELFPAY ==
[2019-02-22 15:53] VITALS: BMI 30.2
[2019-03-21 15:57] LABS: Lactic Acid 0.6 mmol/L (0.4-1.9)
[2019-03-21 16:25] LABS: Albumin, Serum 1.8 g/dL (3.2-5.0); BUN 65 mg/dL (7-18); BUN/Creat Ratio 20.4 RATIO (10-20); Calcium,Total 7.4 mg/dL (8.5-10.1); Chloride 111 mmol/L (98-107); Creatinine, Serum 3.19 mg/dL (0.55-1.02); EST Glomerular Filtration Rate 15 mL/min (>60); Est Glom Filt Rate - Afr Amer 18 mL/min (>60); Glucose 296 mg/dL (74-106); Phosphorus 3.8 mg/dL (2.5-4.9); Sodium Level 139 mmol/L (136-145)
== END ==
PROVIDERS: Family Provider Internal Medicine; PCP Internal Medicine; Referring Provider Nurse Practitioner; Visit Provider Nurse Practitioner
DX: N18.4 Chronic kidney disease, stage 4 (severe) (principal)
CPT/HCPCS: 80069; 83605

== ENCOUNTER 2019-03-21 17:29 | Inpatient (IN) | payer MEDICARE, OTHER, SELFPAY ==
[2019-03-21] VITALS (7 sets, daily range): BP systolic 123–133; BP diastolic 61–63; PULSE 70–84; RESP 14–18; TEMP 36.6–36.8; O2SAT 94–97; BMI 28.3; BMI 30.2; BMI 30.3
--- NOTE | 2019-03-21 17:48 | EKG12_ITS ---
Test Reason : Blood Pressure : / mmHG Vent. Rate : 068 BPM Atrial Rate : 068 BPM P-R Int : 132 ms QRS Dur : 088 ms QT Int : 386 ms P-R-T Axes : 059 006 061 degrees QTc Int : 410 ms Normal sinus rhythm Normal ECG Confirmed by LORENZO MANN, RANGEL ([id number]), graphic editor ROSIBEL KIRKPATRICK ([id number]) on 03/26/2019 11:57:37 AM Referred By: Obey Rabago Confirmed By:SNEHAL VENTURA MD
--- NOTE | 2019-03-21 17:57 | ED.DCSUM_ITS ---
- ER Visit Summary Date of Service: 03/21/19 Chief Complaint: Abnormal labs History of Present Illness: The patient is a 79 F presenting with generalized weakness. Patient states she has not been feeling well and has been very weak and fatigued. She has a history of focal glomerulosclerosis for which she sees Dr. Stephens. 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 She was weaned off the steroids last week. She was started on cyclosporine. She states that she has continued to be weak and having difficulty with simple activities at home. She was treated for UTI in February with Cipro. She denies recent fever. Denies chest pain or shortness of breath. She has had diarrhea. She denies abdominal pain, nausea, vomiting. Denies dizziness or syncope. Denies other complaints. Her primary care physician adeline outpatient labs which showed elevated potassium and elevated creatinine. Physical Examination: Vitals are stable. Patient is afebrile. Alert no acute distress. HEENT exam is unremarkable. Neck is supple. Lungs are clear and equal bilaterally. Heart is regular rate and rhythm. Abdomen is soft nontender nondistended. Extremities are unremarkable. Skin is warm and dry. No focal neurologic deficit. Remainder of exam is unremarkable. Emergency Department Course and Treatment: EKG is sinus rhythm rate of 68 with no acute ischemic changes. CBC shows hemoglobin 9.9. Chemistries show potassium 6.3, glucose 262, BUN 64, creatinine 3.21. Troponin is negative. Discussed with Dr. Turner covering for Dr. Stephens. Patient will be admitted. He recommends Kayexalate. She was also given albuterol, insulin, glucose. Discussed with the hospitalist for admission. Disposition: Admission Impression: CHETAN, hyperkalemia This note was generated with [employer] dictation software. It may contain incorrect words, spelling, and punctuation that were not noted in review of the chart prior to signing ED Disposition - Plan for ED Patient: Referrals: Chaparrita Albrecht, [Primary Care Provider] -
[2019-03-21 18:14] LABS: Absolute Lymphocyte Count 1.22 X10^3/uL (0.83-4.51); Absolute Neutrophil Count 5.7 X10^3/uL (2.0-7.7); Basophil# 0.03 X10^3/uL; Basophil% 0.4 % (0-1); Eosinophil# 0.01 X10^3/uL; Eosinophils% 0.1 % (0-5); Hematocrit 31.1 % (37-47); Hemoglobin 9.9 g/dL (12.0-15.0); Lymphocyte # 1.22 X10^3/ul (4.0); Lymphocyte % 16.6 % (19-41); Mean Corp Hgb Conc 31.8 g/dL (32-36); Mean Corpuscular Hgb 29.7 pg (27.0-32.0); Mean Corpuscular Volume 93.4 fL (81-99); Mean Platelet Vol. 11.6 fl (6.2-12.0); Monocyte# 0.24 X10^3/uL; Monocyte% 3.3 % (0-10); NRBC Flagged by Analyzer 0 % (0-5); Neutrophil # 5.72 X10^3/uL (2.7-7.7); Neutrophil % 77.8 % (47-70); Platelet Count 160 K/mm3 (150-450); RBC Distribution Width CV 14.2 % (11.6-14.6); RBC Distribution Width SD 48.8 fl (35.1-43.9); Red Blood Count 3.33 M/mm3 (4.2-5.4); White Blood Count 7.4 K/mm3 (4.4-11.0)
[2019-03-21 18:38] LABS: Anion Gap 6 (5-15); BUN 64 mg/dL (7-18); BUN/Creat Ratio 19.9 RATIO (10-20); Calcium,Total 7.9 mg/dL (8.5-10.1); Chloride 110 mmol/L (98-107); Creatinine, Serum 3.21 mg/dL (0.55-1.02); EST Glomerular Filtration Rate 15 mL/min (>60); Est Glom Filt Rate - Afr Amer 18 mL/min (>60); Estimated Creatinine Clearance 11.37 ml/min; Glucose 262 mg/dL (74-106); Potassium 6.3 mmol/L (3.5-5.1); Sodium Level 138 mmol/L (136-145)
--- NOTE | 2019-03-21 18:38 | ED.RN ---
potassium 6.3 called from the lab dr schultz aware
[2019-03-21] MEDS: Albuterol 2.5 MG/3 ML VIAL.NEB. INHALATION ×2 (18:51→23:24)
[2019-03-21 18:55] LABS: Mucous, Urine 0 SEEN /hpf (<or=2+); Red Blood Cells-Urine 0 SEEN /hpf (0-5)
[2019-03-21 19:03] LABS: Color, Urine Yellow (Yellow); Glucose, Dipstick 250 mg/dl (Normal); Ketone-Dipstick Negative (Negative); Leukocyte Esterase-Dipstick 25 /ul (Negative); Nitrite-Dipstick Negative (Negative); Occult Blood-Urine 10 /ul (Negative); Protein-Dipstick 500 mg/dl (Negative); Urine Bilirubin Dipstick Negative (Negative); Urine Clarity Clear (Clear); Urine Urobilinogen Normal (Normal)
--- NOTE | 2019-03-21 19:14 | HP.PCM_ITS ---
Problem List (1) CHETAN (acute kidney injury) Status: Acute (2) Hyperkalemia Status: Acute History of Present Illness Date of Admission: 03/21/19 Chief Complaint: abnormal outpatient lab The patient is a 79 year old F with a significant history of diabetes mellitus; and focal glomerulosclerosis who presented to emergency department because of an abnormal outpatient lab of hyperkalemia and elevated creatinine. Patient went to her PCPs office because of generalized weakness and was found to have the above abnormal labs. Of note patient was on prednisone for her focal glomerulosclerosis but because of steroid myopathy the prednisone was discontinued and patient was started on cyclosporine. Reportedly patient gained about 10 pounds in 1months. At the emergency department her potassium was severely elevated and her creatinine was also elevated. Emergent department doctor discussed the case with laser/electro optics technician. Patient was given albuterol; insulin with glucose and Kayexalate. Past Medical History Medical History: Medical History (Last Reviewed 03/22/19 @ 05:34 by Obey Rabago MD) Diabetes mellitus E11.9 Focal glomerulosclerosis N05.1 Hypertension I10 Allergies morphine Adverse Reaction (Verified 03/21/19 17:35) Shortness of breath Home Medications: Ambulatory Orders Medication Instructions Recorded Aspirin [Aspirin, Baby] 81 mg PO DAILY@0800 04/20/16 Carvedilol [Coreg] 12.5 mg PO BID 04/20/16 Vilazodone Hydrochloride [Viibryd] 40 mg PO DAILY 04/20/16 traZODone [Desyrel] 100 mg PO DAILY 04/20/16 Albuterol Sulfate [Proventil Hfa] 6.7 gm IH BID PRN 03/21/19 Alendronate Sodium 70 mg PO QWEEK 03/21/19 Amlodipine Besylate 10 mg PO DAILY 03/21/19 Atorvastatin Calcium 20 mg PO DAILY 03/21/19 Atorvastatin Calcium 40 mg PO DAILY 03/21/19 Benazepril HCl 40 mg PO DAILY 03/21/19 Budesonide/Formoterol Fumarate 6 gm IH BID 03/21/19 [Symbicort 160-4.5 Mcg Inhaler] Cholecalciferol (VIT D3) [Vitamin 5,000 unit PO DAILY 03/21/19 D] Cyclosporine MODIFIED [Gengraf] 25 mg PO BID 03/21/19 Doxycycline Hyclate 20 mg PO BID 03/21/19 Hydrochlorothiazide 12.5 mg PO DAILY 03/21/19 Hydrocodone/Acetaminophen 1 - 2 tab PO Q6H PRN 03/21/19 [Hydrocodone-Acetamin 5-325 mg] Insulin Detemir [Levemir] 20 unit SQ QHS 03/21/19 Mirabegron [Myrbetriq] 50 mg PO DAILY 03/21/19 Omeprazole 20 mg PO DAILY 03/21/19 Spironolactone 50 mg PO DAILY 03/21/19 busPIRone [Buspar] 5 mg PO BID 03/21/19 Surgical History: appendectomy, cholecystectomy, - - Back surgery Lives: With Family Smoking Status: Never smoker Alcohol: Rare - *Family History Maternal History Items: Heart Disease - Her father at the age of 60, - - Her mother from brain aneurysm at the age of 63 Review of Systems Constitutional: Reports: Weakness, Weight Change - Gained about 10 pounds in 1 months, Fatigue. Denies: Chills, Fever HEENT: Reports: Head Aches. Denies: Sinus Congestion, Sinus Drainage Cardiovascular: Denies: Chest Pain, Palpitations Respiratory: Denies: Cough, Shortness of breath at rest, Sputum production Gastrointestinal: Denies: Abdominal Pain, Nausea, Vomiting Genitourinary: Denies: Dysuria Musculoskeletal: Denies: Joint Pain, Joint Tenderness Skin: Denies: Rash, Wounds Neurological: Denies: Numbness, Tingling, Focal weakness Psychiatric: Reports: Depression. Denies: Anxiety, Homicidal Ideations, Suicidal Ideations Hematologic/ Lymphatic: Denies: Easy Bruising, Easy Bleeding VTE Information - Inpt Only VTE Present on Admission: No VTE Mechan Device Prophylaxis: None VTE Pharm Prophylaxis ordered?: Yes Patient Problems: Active and Suspected Problems (Last Reviewed 03/22/19 @ 05:34 by Obey Rabago MD) CHETAN (acute kidney injury) (Acute) Hyperkalemia (Acute) - Physical Exam Vitals/I&O's: Vital Signs Temp Pulse Resp BP Pulse Ox 98.2 F 70 17 133/63 H 97 03/21/19 17:31 03/21/19 18:54 03/21/19 18:54 03/21/19 17:31 03/21/19 17:31 Oxygen Delivery Method Room Air Weight: 72.575 kg Body Mass Index (BMI) 28.3 General: Alert, Oriented x3, Cooperative HEENT: Atraumatic, PERRLA, EOMI, Normocephalic Neck: Supple, No JVD, Negative Carotid Bruits Lungs: Clear to auscultation, Normal air movement Cardiovascular: Regular rate, Normal S1, Normal S2, No murmurs Abdomen: Bowel Sounds Present, Soft, Non Tender Extremities: Capillary Refill Less than 3 Seconds, Edema - Bilateral lower extremities Skin: No rashes, No breakdown Musculoskeletal: Tenderness - legs Neurological: Cranial nerves II-XII grossly intact Psych/Mental Status: Normal Affect, Appropriate Laboratory Results 03/21/19 18:04: WBC 7.4, RBC 3.33 L, Hgb 9.9 L, Hct 31.1 L, MCV 93.4, MCH 29.7, MCHC 31.8 L, RDW Std Deviation 48.8 H, RDW Coeff of Dee 14.2, Plt Count 160, MPV 11.6, Immature Gran % (Auto) 1.800 H, Neut % (Auto) 77.8 H, Lymph % (Auto) 16.6 L, [place] % (Auto) 3.3, Eos % (Auto) 0.1, Baso % (Auto) 0.4, Absolute Neuts (auto) 5.7, Absolute Lymphs (auto) 1.22, Nucleated RBC % 0 03/21/19 18:04: Sodium 138, Potassium 6.3 H*, Chloride 110 H, Carbon Dioxide 22.0, Anion Gap 6, BUN 64 H, Creatinine 3.21 H, Estim Creat Clear Calc 11.37, Est GFR (MDRD) Af Amer 18 L, Est GFR (MDRD) Non-Af 15 L, BUN/Creatinine Ratio 19.9, Glucose 262 H, Calcium 7.9 L, Troponin I < 0.015 03/21/19 18:50: Urine Color Yellow, Urine Clarity Clear, Urine pH 6.0, Ur Specific [place] 1.010, Urine Protein 500 H, Urine Glucose (UA) 250 H, Urine Ketones Negative, Urine Occult Blood 10 H, Urine Nitrite Negative, Urine Bilirubin Negative, Urine Urobilinogen Normal, Ur Leukocyte Esterase 25 H, Urine RBC Pending, Urine WBC Pending, Ur Squamous Epith Cells Pending, Urine Bacteria Pending, Urine Mucus Pending Assessment/Plan All Active Problems (Last Reviewed 03/22/19 @ 05:34 by Obey Rabago MD) CHETAN (acute kidney injury) (Acute) Hyperkalemia (Acute) The patient is a 79 year old F with a significant history of diabetes mellitus; and focal glomerulosclerosis with hyperkalemia; and elevated creatinine and also with generalized weakness. Hyperkalemia At the department her creatinine was 6.3. Patient received albuterol; insulin glucose and Kayexalate. We will give her MiraLAX. We will repeat potassium. Emergent department doctor discussed the case with Dr. Bagley, laser/electro optics technician. Will consult Dr. Bagley inpatient. CHETAN From report the patient's baseline creatinine is between 1.8-2.0. Of presentation her creatinine was 3.2. BUN was 64. BUN over creatinine is 19.9. Will start patient on gentle IV fluids. Trend BMP. Consult nephrology. Avoid nephrotoxins: Cyclosporine; HIREN inhibitors; hydrochlorothiazide and spironolactone held for now. Generalized weakness Likely due to uremia and hyperkalemia. Will check TSH and vitamin D level. Of note patient takes vitamin D and calcium. Diabetes mellitus with hyperglycemia On presentation her blood glucose was not within goal. Home basal insulin continued but de-escalated dose in the hospital setting. Correction scale insulin added. Bilateral lower extremity edema Patient uses ROSHAN hose at home. Kerlix roll and hiren wrap and to elevate bilateral lower extremities. Focal glomerulosclerosis On cyclosporine. Held secondary to CHETAN. Patient with significant proteinuria. Nephrology consult. Rosacea Doxycycline continued Meningioma with headaches:PRN hydrocodone continued Urinary urgency Mirabegron continued DVT prophylaxis Subcutaneous Lovenox Code Visit Inpatient E&M: 33361 Init Hosp L3
[2019-03-21 19:19] LABS: Squamous Epithelial Cells - UA 0-5 SEEN /hpf (5-10); White Blood Cells 0-5 SEEN /hpf (0-5)
[2019-03-21] MEDS: Dextrose 10%-Water 250 ML 999 ML IV (19:19)
[2019-03-21 19:20] LABS: Bacteria 1+ /hpf (None Seen)
[2019-03-21] MEDS: Insulin Lispro 5 UNIT in Syringe 0 ML 3 UNIT IV (19:33)
[2019-03-21] MEDS: Sodium Polystyrene Sulfonate 15 GM/60 ML UDC 30 GM PO (19:35)
[2019-03-21 21:50] LABS: Thyroid Stim Hormone (TSH) 2.41 uIU/mL (0.358-3.74)
[2019-03-21] MEDS: 0.9% Normal Saline 1,000 ML 100 ML IV (21:58)
[2019-03-21] MEDS: Polyethylene Glycol 3350 17 GM PACKET PO (22:07)
[2019-03-21] MEDS: Alendronate Sodium 70 MG Tablet PO (23:02)
[2019-03-21] MEDS: Carvedilol 12.5 MG Tablet PO (23:04)
[2019-03-21] MEDS: busPIRone 5 MG Tablet PO (23:04)
[2019-03-21] MEDS: Atorvastatin Calcium 40 MG Tablet PO (23:05)
[2019-03-21 23:06] LABS: Anion Gap 8 (5-15); BUN 70 mg/dL (7-18); BUN/Creat Ratio 21.1 RATIO (10-20); Calcium,Total 7.9 mg/dL (8.5-10.1); Chloride 114 mmol/L (98-107); Creatinine, Serum 3.31 mg/dL (0.55-1.02); EST Glomerular Filtration Rate 14 mL/min (>60); Est Glom Filt Rate - Afr Amer 17 mL/min (>60); Estimated Creatinine Clearance 11.03 ml/min; Glucose 298 mg/dL (74-106); Potassium 5.6 mmol/L (3.5-5.1); Sodium Level 141 mmol/L (136-145)
[2019-03-21] MEDS: Insulin Lispro 100 UNIT/ML INSULN.PEN SC (23:17)
[2019-03-21] MEDS: Budesonide Respules 0.5 MG/2 ML AMPUL.NEB. INHALATION (23:24)
[2019-03-21 23:25] LABS: Bedside Glucose 288 mg/dL (70-110)
[2019-03-22] VITALS (10 sets, daily range): BP systolic 120–129; BP diastolic 51–66; PULSE 56–92; RESP 14–20; TEMP 36.4–36.9; O2SAT 94–97
[2019-03-22] MEDS: 0.45% Normal Saline 1,000 ML 75 ML IV (05:50)
[2019-03-22] MEDS: Insulin Lispro 100 UNIT/ML INSULN.PEN SC ×3 (06:38→21:58)
[2019-03-22] MEDS: Albuterol 2.5 MG/3 ML VIAL.NEB. INHALATION ×2 (06:54→20:13)
[2019-03-22] MEDS: Budesonide Respules 0.5 MG/2 ML AMPUL.NEB. INHALATION ×2 (06:54→20:14)
[2019-03-22 06:55] LABS: Bedside Glucose 190 mg/dL (70-110)
[2019-03-22 07:10] LABS: Absolute Neutrophil Count 4.2 X10^3/uL (2.0-7.7); Basophil# 0.03 X10^3/uL; Basophil% 0.5 % (0-1); Eosinophil# 0.05 X10^3/uL; Eosinophils% 0.8 % (0-5); Lymphocyte % 15.9 % (19-41); Mean Corp Hgb Conc 32.1 g/dL (32-36); Mean Corpuscular Hgb 29.9 pg (27.0-32.0); Mean Platelet Vol. 11.8 fl (6.2-12.0); Monocyte# 0.88 X10^3/uL; NRBC Flagged by Analyzer 0 % (0-5); Neutrophil # 4.21 X10^3/uL (2.7-7.7); Platelet Count 160 K/mm3 (150-450); RBC Distribution Width SD 47.6 fl (35.1-43.9); Red Blood Count 3.01 M/mm3 (4.2-5.4); White Blood Count 6.3 K/mm3 (4.4-11.0)
[2019-03-22 07:53] LABS: Anion Gap 8 (5-15); BUN 64 mg/dL (7-18); BUN/Creat Ratio 19.7 RATIO (10-20); Calcium,Total 7.7 mg/dL (8.5-10.1); Chloride 115 mmol/L (98-107); Creatinine, Serum 3.25 mg/dL (0.55-1.02); EST Glomerular Filtration Rate 15 mL/min (>60); Est Glom Filt Rate - Afr Amer 18 mL/min (>60); Estimated Creatinine Clearance 11.23 ml/min; Glucose 226 mg/dL (74-106); Potassium 4.6 mmol/L (3.5-5.1); Sodium Level 144 mmol/L (136-145)
[2019-03-22] MEDS: Aspirin 81 MG TAB.CHEW PO (08:34)
[2019-03-22] MEDS: busPIRone 5 MG Tablet PO ×2 (08:34→21:53)
[2019-03-22] MEDS: amLODIPine 10 MG Tablet PO (08:35)
[2019-03-22] MEDS: Carvedilol 12.5 MG Tablet PO ×2 (08:35→21:53)
[2019-03-22] MEDS: Mirabegron 50 MG TAB.ER.24H PO (08:35)
[2019-03-22] MEDS: traZODone 100 MG Tablet PO ×2 (08:35→21:51)
[2019-03-22] MEDS: Enoxaparin 30 MG/0.3 ML Syringe SC (08:36)
[2019-03-22] MEDS: Pantoprazole Sodium 20 MG Tablet PO (08:36)
[2019-03-22 08:56] LABS: CPK Total, Creatine Kinase 50 U/L (26-192)
--- NOTE | 2019-03-22 11:45 | CASEMGMT ---
ARSENIO RAMIREZ Assessment: Face to Face with patient for initial transition planning/care coordination assessment. ARSENIO RAMIREZ introduced self and role at [facility], pt voices understanding and consents to assessment at this time. Pt is sitting up in bed in no distress at this time. Pt is A/Ox4 at this time and answers all questions appropriately at this time. Care providers, pharmacy, and demographics verified at this time. Presentation: From PCP for low potassium Admitting dx: CHETAN PCP: Chaparrita Albrecht Specialists: afua Stephens Preferred [facility]acy: [facility] Insurance: MCR A/B, AARP Prescription Benefit: AARP Living Will/HPOA: Pt states his unsure if she has LW/HPOA. Pt states that her daughter 'know what I want' and does not feel the need to complete at this time. LNOK: Kate Singh, daughter Living Arrangements: Pt states her daughter lives with her in 1 story condo and states no concerns at home at this time. Pt states is independent with ADL's. Transportation: Pt states drives self and states no transportation concerns at this time. DME/HHC: Pt states has the following DME: grab bars shower chair, raised toilet seat, cane, walker, and w/c. Pt states no need for any further DME. Pt states no hx of HHC or SNF in the past. Pt states no concerns with going home at time of discharge. Pt states is retired. Pt states does not smoke and rarely drinks ETOH. Pt states no further concerns/needs at this time. CM to follow for any further discharge planning/needs. Advised pt to ask for CM if any further questions/concerns/needs arise, voices understanding. Pt Goal: Home Plan: [place] ARSENIO RAMIREZ
--- NOTE | 2019-03-22 11:51 | PCM.PN.HOSP ---
Patient Problems: Active and Suspected Problems (Last Reviewed 03/22/19 @ 05:34 by Obey Rabago MD) CHETAN (acute kidney injury) (Acute) Hyperkalemia (Acute) Subjective: Patient seen and examined. She was admitted with hyperkalemia and elevated creatinine which was detected Per labs done on outpatient basis. Patient had been complaining of generalized weakness and excessive tiredness so she went to see her PCP. Patient had been on prednisone for focal segmental glomerulosclerosis and states this was tapered off last week and she was started on cyclosporine. She has gained about 10 pounds in a short duration. On admission in the ED, potassium was 6.3 and she was given the potassium depleting cocktail and started on Kayexalate. She has been managed for CHETAN and hyperkalemia. Patient still complains of feeling weak. He states it took her about an hour to get dressed while she was at home. She also complains of swelling in her lower extremities. She denies any fever or chills, palpitations or dizziness, chest pain, diarrhea or vomiting. Review of symptoms otherwise negative. Labs and vitals reviewed. Potassium is down to 4.6 today and creatinine has trended down to 3.25. Vitals/I&O's: Vital Signs Temp Pulse Resp BP Pulse Ox 97.6 F L 56 L 14 123/66 H 97 03/22/19 09:05 03/22/19 09:05 03/22/19 09:05 03/22/19 09:05 03/22/19 09:05 Oxygen Delivery Method Room Air Weight: 170 lb 13.732 oz Body Mass Index (BMI) 30.2 Intake and Output for Last 24 Hours 03/20/19 03/21/19 03/22/19 23:59 23:59 23:59 Intake Total 250.05 / 370.05 1025 / 1025 Balance 250.05 / 370.05 1025 / 1025 General: Alert, Oriented x3, Cooperative, No apparent distress HEENT: Atraumatic, PERRLA, EOMI, Normocephalic Oral: Dry Mucosa Neck: Supple, No JVD, Negative Carotid Bruits, Negative Hepatojugular Reflux Lungs: Clear to auscultation, Normal air movement, No rhonchi, No wheeze Abdomen: Bowel Sounds Present, Soft, Non Tender, Non-Distended, No Hepato-splenomegaly Extremities: No clubbing, No cyanosis, Capillary Refill Less than 3 Seconds, - - 2+ LE pitting bipedal edema; with mild tenderness on palpation Skin: No rashes, No breakdown Musculoskeletal: - - mild tenderness on palpation of lower extremities Lymphatic: No Cervical, Supraclavicular, or Inguinal Adenopathy Neurological: Cranial nerves II-XII grossly intact, Neuro grossly intact, Motor Exam 5/5 strength throughout Psych/Mental Status: Normal Affect, Appropriate, Alert and oriented to time, place, person, mood and affect Laboratory Results 03/21/19 18:04: WBC 7.4, RBC 3.33 L, Hgb 9.9 L, Hct 31.1 L, MCV 93.4, MCH 29.7, MCHC 31.8 L, RDW Std Deviation 48.8 H, RDW Coeff of Dee 14.2, Plt Count 160, MPV 11.6, Immature Gran % (Auto) 1.800 H, Neut % (Auto) 77.8 H, Lymph % (Auto) 16.6 L, [place] % (Auto) 3.3, Eos % (Auto) 0.1, Baso % (Auto) 0.4, Absolute Neuts (auto) 5.7, Absolute Lymphs (auto) 1.22, Nucleated RBC % 0 03/21/19 18:04: Sodium 138, Potassium 6.3 H*, Chloride 110 H, Carbon Dioxide 22.0, Anion Gap 6, BUN 64 H, Creatinine 3.21 H, Estim Creat Clear Calc 11.37, Est GFR (MDRD) Af Amer 18 L, Est GFR (MDRD) Non-Af 15 L, BUN/Creatinine Ratio 19.9, Glucose 262 H, Calcium 7.9 L, Troponin I < 0.015 03/21/19 18:04: TSH 2.41 03/21/19 18:50: Urine Color Yellow, Urine Clarity Clear, Urine pH 6.0, Ur Specific [place] 1.010, Urine Protein 500 H, Urine Glucose (UA) 250 H, Urine Ketones Negative, Urine Occult Blood 10 H, Urine Nitrite Negative, Urine Bilirubin Negative, Urine Urobilinogen Normal, Ur Leukocyte Esterase 25 H, Urine RBC 0 SEEN, Urine WBC 0-5 SEEN, Ur Squamous Epith Cells 0-5 SEEN, Urine Bacteria 1+, Urine Mucus 0 SEEN 03/21/19 22:40: Sodium 141, Potassium 5.6 H, Chloride 114 H, Carbon Dioxide 19.0 L, Anion Gap 8, BUN 70 H, Creatinine 3.31 H, Estim Creat Clear Calc 11.03, Est GFR (MDRD) Af Amer 17 L, Est GFR (MDRD) Non-Af 14 L, BUN/Creatinine Ratio 21.1 H, Glucose 298 H, Calcium 7.9 L 03/21/19 22:40: Vitamin D 25-Hydroxy 18.0 L 03/21/19 23:01: POC Glucose 288 H 03/22/19 06:20: WBC 6.3, RBC 3.01 L, Hgb 9.0 L, Hct 28.0 L, MCV 93.0, MCH 29.9, MCHC 32.1, RDW Std Deviation 47.6 H, RDW Coeff of Dee 14.0, Plt Count 160, MPV 11.8, Immature Gran % (Auto) 1.800 H, Neut % (Auto) 67.0, Lymph % (Auto) 15.9 L, [place] % (Auto) 14.0 H, Eos % (Auto) 0.8, Baso % (Auto) 0.5, Absolute Neuts (auto) 4.2, Absolute Lymphs (auto) 1.00, Nucleated RBC % 0 03/22/19 06:20: Sodium 144, Potassium 4.6, Chloride 115 H, Carbon Dioxide 21.0, Anion Gap 8, BUN 64 H, Creatinine 3.25 H, Estim Creat Clear Calc 11.23, Est GFR (MDRD) Af Amer 18 L, Est GFR (MDRD) Non-Af 15 L, BUN/Creatinine Ratio 19.7, Glucose 226 H, Calcium 7.7 L 03/22/19 06:20: Total Creatine Kinase 50 03/22/19 06:37: POC Glucose 190 H Current Medications Acetaminophen (Tylenol) 650 mg PO Q6H PRN PRN PRN Reason: Pain Score 1-3/Temp > 100.7 F Hydrocodone Bitart/Acetaminophen ([place]ant[place] 5mg-325mg) 1 - 2 tablet PO Q6H PRN PRN PRN Reason: see parameters Albuterol Sulfate (Ventolin Aerosols) 2.5 mg INHALATION Q2H PRN PRN PRN Reason: sob/wheezing Albuterol Sulfate (Ventolin Aerosols) 2.5 mg INHALATION Q6HWA.RT [facility] Last Admin: 03/22/19 06:54 Dose: 2.5 mg Documented by: Alendronate Sodium (Fosamax) 70 mg PO QWEEK [facility] Last Admin: 03/21/19 23:02 Dose: 70 mg Documented by: Amlodipine Besylate (Norvasc) 10 mg PO DAILY [facility] Last Admin: 03/22/19 08:35 Dose: 10 mg Documented by: Aspirin (Aspirin, Baby) 81 mg PO DAILY@0800 [facility] Last Admin: 03/22/19 08:34 Dose: 81 mg Documented by: Atorvastatin Calcium (Lipitor) 20 mg PO QHS [facility] Atorvastatin Calcium (Lipitor) 40 mg PO QHS [facility] Last Admin: 03/21/19 23:05 Dose: 40 mg Documented by: Budesonide (Pulmicort Aerosol) 0.5 mg INHALATION Q12H.RT [facility] Last Admin: 03/22/19 06:54 Dose: 0.5 mg Documented by: Buspirone HCl (Buspar) 5 mg PO BID [facility] Last Admin: 03/22/19 08:34 Dose: 5 mg Documented by: Carvedilol (Coreg) 12.5 mg PO BID [facility] Last Admin: 03/22/19 08:35 Dose: 12.5 mg Documented by: Cholecalciferol (Vitamin D) 5,000 unit PO DAILY [facility] Last Admin: 03/22/19 08:36 Dose: 5,000 unit Documented by: Enoxaparin Sodium (Lovenox) 30 mg SC DAILY [facility] Last Admin: 03/22/19 08:36 Dose: 30 mg Documented by: Glucagon () 1 mg IM .X1 PRN PRN Reason: Hypoglycemia Dextrose (Dextrose 10%-Water) 250 mls @ 999 mls/hr IV .Q16M PRN; Protocol PRN Reason: HYPOGLYCEMIA Last Infusion: 03/21/19 19:37 Dose: Infused Documented by: Sodium Chloride () 1,000 mls @ 75 mls/hr IV .[id number] [facility] Stop: 03/23/19 08:14 Last Admin: 03/22/19 05:50 Dose: 75 mls/hr Documented by: Insulin Glargine (Lantus (Bkc)) 15 units SC QHS [facility] Last Admin: 03/21/19 23:15 Dose: 15 u Documented by: Insulin Human Lispro (Humalog Kwikpen (Bkc)) 0 unit SC ACHS [facility]; Protocol Last Admin: 03/22/19 11:38 Dose: 1 u Documented by: Melatonin (Melatonin) 3 mg PO QHS PRN PRN PRN Reason: INSOMNIA Mirabegron (Myrbetriq) 50 mg PO DAILY [facility] Last Admin: 03/22/19 08:35 Dose: 50 mg Documented by: Non-Formulary Medication (Doxycycline Hyclate) 20 mg PO BID [facility] Pantoprazole Sodium (Protonix) 20 mg PO DAILY [facility] Last Admin: 03/22/19 08:36 Dose: 20 mg Documented by: Sodium Chloride () 10 - 40 ml IV UD PRN PRN Reason: SALINE FLUSH Trazodone HCl (Desyrel) 100 mg PO DAILY [facility] Last Admin: 03/22/19 08:35 Dose: 100 mg Documented by: Vilazodone HCl (Viibryd) 40 mg PO DAILY [facility] STROKE Vital Signs/Narrative: Vital Signs Temp Pulse Resp BP Pulse Ox 03/22/19 09:05 97.6 F L 56 L 14 123/66 H 97 Medical Necessity - Tobacco Use Smoking Status: Former smoker Tobacco Use: Cigarettes Assessment/Plan All Active Problems (Last Reviewed 03/22/19 @ 05:34 by Obey Rabago MD) CHETAN (acute kidney injury) (Acute) Hyperkalemia (Acute) 1. CHETAN and hyperkalemia Potassium is down to 4.3 today after she received Kayexalate. Baseline creatinine is around 1.8. On admission creatinine was 3.2 and trended up slightly to 3.31. Creatinine is 3.25 today. BUN is down slightly from 70-64 today. Currently being hydrated with IV fluids. CPK was checked on account of suspicion for steroid-induced myopathy but it was only 50. CHETAN and hyperkalemia could be a side effect of the cyclosporine she was recently started on. HIREN inhibitors, hydrochlorothiazide and cyclosporine currently on hold. Check kidney ultrasound and also check for area. nephrology on board- await rec's on viamin D. calciuim level is low at 7.7, likely due to CKD 2. Debility due to uremia and hyperkalemia PT/OT on board fall percautioins 3. 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 Cyclosporine on hold. 4. Type 2 diabetes mellitus: Had hyperglycemia on admission. On insulin sliding scale. Accu-Cheks AC at bedtime. on Lantus 15 units nightly; usually on 1 2 units nightly at home. 5. History of bilateral lower extremity edema: Uses ROSHAN hose at home. 6. Hypertension: On carvedilol. 7. Urinary frequency: Stable. On mirabegron. 8. Rosacea: on doxycycline. 9. Meningioma with history of headaches: on prn hydrocodone. DVT prophylaxis: Lovenox, renally dosed. CODE STATUS: DNR CCA Code Visit Inpatient E&M: 19429 Subs Hosp L3
[2019-03-22 11:55] LABS: Bedside Glucose 151 mg/dL (70-110)
--- NOTE | 2019-03-22 12:11 | US_ITS ---
STUDY: RENAL ULTRASOUND - COMPLETE REASON FOR EXAM: Female, 79 years old. Acute kidney injury TECHNIQUE: Ultrasound evaluation of the kidneys was performed with real-time and static segovia-scale imaging. COMPARISON: 07/22/2015. FINDINGS: Aorta: Visualized portions of abdominal aorta are normal in diameter. IVC: Visualized portions appear patent. Right kidney: Measures 10.3 cm. Normal contour. Renal cortical thickness appears decreased. Multiple cysts, largest measures up to 4.2 cm. No masses, or hydronephrosis identified. Left kidney: Measures 10.4 cm. Normal contour. Renal cortical thickness appears decreased. Multiple cysts, largest measures up to 2.7 cm. No masses, or hydronephrosis identified. Multiple bilateral small hyperechoic nonshadowing foci are nonspecific. Cannot exclude small nonobstructing stones. Bladder: No intrinsic masses, stones, or abnormal dilatation noted. Incidental note is made of a 2.7 cm cystic structure in the left adnexa. US/Kidney and Bladder IMPRESSION: Bilateral renal cortical thinning and multiple renal cysts. No evidence for stones or obstructive uropathy. Incidental note is made of a 2.7 cm cystic structure in the left adnexa. Consider correlation with pelvic sonogram. Electronically Signed: Manny Hirsch, at 16:30 EST Tel , Service support ,
[2019-03-22 13:48] LABS: Anion Gap 6 (5-15); BUN 63 mg/dL (7-18); BUN/Creat Ratio 19.7 RATIO (10-20); Chloride 115 mmol/L (98-107); EST Glomerular Filtration Rate 15 mL/min (>60); Est Glom Filt Rate - Afr Amer 18 mL/min (>60); Estimated Creatinine Clearance 11.41 ml/min; Glucose 157 mg/dL (74-106); Potassium 4.5 mmol/L (3.5-5.1); Sodium Level 143 mmol/L (136-145)
--- NOTE | 2019-03-22 15:44 | CON.PCM_ITS ---
Problem List (1) CHETAN (acute kidney injury) Status: Acute (2) Hyperkalemia Status: Acute Consultation - Renal 03/22/19 PCP/ Referring MD: Requesting physician: Dr Rabago Primary care physician: Chaparrita Albrecht DO Reason for Consultation:: CHETAN - History of Present Illness History of Present Illness: The patient is a 79 year old F well-known to us from the office. 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 She was tapered off prednisone and started on cyclosporine. Routine blood work drawn showed significant hyperkalemia and acute renal failure hence she was referred to the emergency room. Potassium levels are better today. Complains of generalized weakness from effects of steroids. Does have some lower extremity edema which is not new. No urinary complaints. She did have a UTI r ecently and was treated with ciprofloxacin. No NSAIDs. - Allergies Allergies: Allergies morphine Adverse Reaction (Verified 03/21/19 17:35) Shortness of breath - Current Medications Current Medications: Current Medications Acetaminophen (Tylenol) 650 mg PO Q6H PRN PRN PRN Reason: Pain Score 1-3/Temp > 100.7 F Hydrocodone Bitart/Acetaminophen ([place] 5mg-325mg) 1 - 2 tablet PO Q6H PRN PRN PRN Reason: see parameters Albuterol Sulfate (Ventolin Aerosols) 2.5 mg INHALATION Q2H PRN PRN PRN Reason: sob/wheezing Albuterol Sulfate (Ventolin Aerosols) 2.5 mg INHALATION Q6HWA.RT [facility] Last Admin: 03/22/19 13:00 Dose: Not Given Documented by: Alendronate Sodium (Fosamax) 70 mg PO QWEEK [facility] Last Admin: 03/21/19 23:02 Dose: 70 mg Documented by: Amlodipine Besylate (Norvasc) 10 mg PO DAILY [facility] Last Admin: 03/22/19 08:35 Dose: 10 mg Documented by: Aspirin (Aspirin, Baby) 81 mg PO DAILY@0800 [facility] Last Admin: 03/22/19 08:34 Dose: 81 mg Documented by: Atorvastatin Calcium (Lipitor) 20 mg PO QHS [facility] Atorvastatin Calcium (Lipitor) 40 mg PO QHS [facility] Last Admin: 03/21/19 23:05 Dose: 40 mg Documented by: Budesonide (Pulmicort Aerosol) 0.5 mg INHALATION Q12H.RT [facility] Last Admin: 03/22/19 06:54 Dose: 0.5 mg Documented by: Buspirone HCl (Buspar) 5 mg PO BID [facility] Last Admin: 03/22/19 08:34 Dose: 5 mg Documented by: Carvedilol (Coreg) 12.5 mg PO BID [facility] Last Admin: 03/22/19 08:35 Dose: 12.5 mg Documented by: Cholecalciferol (Vitamin D) 5,000 unit PO DAILY [facility] Last Admin: 03/22/19 08:36 Dose: 5,000 unit Documented by: Doxycycline Hyclate (Doxycycline Hyclate) 20 mg PO BID [facility] Enoxaparin Sodium (Lovenox) 30 mg SC DAILY [facility] Last Admin: 03/22/19 08:36 Dose: 30 mg Documented by: Glucagon () 1 mg IM .X1 PRN PRN Reason: Hypoglycemia Dextrose (Dextrose 10%-Water) 250 mls @ 999 mls/hr IV .Q16M PRN; Protocol PRN Reason: HYPOGLYCEMIA Last Infusion: 03/21/19 19:37 Dose: Infused Documented by: Sodium Chloride () 1,000 mls @ 150 mls/hr IV .Q6H40M [facility] Stop: 03/23/19 08:14 Last Infusion: 03/22/19 15:31 Dose: 75 mls/hr Documented by: Insulin Glargine (Lantus (Bkc)) 15 units SC QHS [facility] Last Admin: 03/21/19 23:15 Dose: 15 u Documented by: Insulin Human Lispro (Humalog Kwikpen (Bk)) 0 unit SC [facility]; Protocol Last Admin: 03/22/19 11:38 Dose: 1 u Documented by: Melatonin (Melatonin) 3 mg PO QHS PRN PRN PRN Reason: INSOMNIA Mirabegron (Myrbetriq) 50 mg PO DAILY [facility] Last Admin: 03/22/19 08:35 Dose: 50 mg Documented by: Pantoprazole Sodium (Protonix) 20 mg PO DAILY [facility] Last Admin: 03/22/19 08:36 Dose: 20 mg Documented by: Sodium Chloride () 10 - 40 ml IV UD PRN PRN Reason: SALINE FLUSH Trazodone HCl (Desyrel) 100 mg PO DAILY [facility] Last Admin: 03/22/19 08:35 Dose: 100 mg Documented by: Vilazodone HCl (Viibryd) 40 mg PO DAILY [facility] - Past Surgical History Surgical History: appendectomy, cholecystectomy, - - Back surgery - Social History Smoking Status: Former smoker Alcohol: Rare - Family History Maternal History Items: Heart Disease - Her father at the age of 60, - - Her mother from brain aneurysm at the age of 63 Review of Systems Constitutional: Denies: Chills, Fever, Weight Change HEENT: Denies: Head Aches, Sinus Congestion, Sinus Drainage Cardiovascular: Denies: Chest Pain, Palpitations Respiratory: Denies: Cough, Shortness of breath at rest, Sputum production Gastrointestinal: Denies: Abdominal Pain, Nausea, Vomiting Genitourinary: Denies: Dysuria Musculoskeletal: Denies: Joint Pain, Joint Tenderness Skin: Denies: Rash, Wounds Neurological: Denies: Numbness, Tingling, Focal weakness Psychiatric: Denies: Anxiety, Depression, Homicidal Ideations, Suicidal Ideations Hematologic/ Lymphatic: Denies: Easy Bruising, Easy Bleeding Patient Problems: Active and Suspected Problems (Last Reviewed 03/22/19 @ 05:34 by Obey Rabago MD) CHETAN (acute kidney injury) (Acute) Hyperkalemia (Acute) - Physical Exam Vitals/I&O's: Vital Signs Temp Pulse Resp BP Pulse Ox 98.0 F 79 14 120/55 L 95 03/22/19 15:20 03/22/19 15:20 03/22/19 15:20 03/22/19 15:20 03/22/19 15:20 Oxygen Delivery Method Room Air Weight: 77.5 kg Body Mass Index (BMI) 30.2 Intake and Output for Last 24 Hours 03/20/19 03/21/19 03/22/19 23:59 23:59 23:59 Intake Total 250.05 / 370.05 2325 / 2325 Balance 250.05 / 370.05 2324 / 232 General: Alert, Oriented x3, Cooperative HEENT: Atraumatic, PERRLA, EOMI, Normocephalic Neck: Supple, No JVD, Negative Carotid Bruits Lungs: Clear to auscultation, Normal air movement Cardiovascular: Regular rate, No murmurs Abdomen: Bowel Sounds Present, Soft, Non Tender Extremities: Capillary Refill Less than 3 Seconds, Edema Skin: No rashes, No breakdown Musculoskeletal: No Tenderness to Palpation of Joints or Extremities Neurological: Cranial nerves II-XII grossly intact Psych/Mental Status: Normal Affect, Appropriate Laboratory Results 03/21/19 18:04: WBC 7.4, RBC 3.33 L, Hgb 9.9 L, Hct 31.1 L, MCV 93.4, MCH 29.7, MCHC 31.8 L, RDW Std Deviation 48.8 H, RDW Coeff of Ede 14.2, Plt Count 160, MPV 11.6, Immature Gran % (Auto) 1.800 H, Neut % (Auto) 77.8 H, Lymph % (Auto) 16.6 L, Orange % (Auto) 3.3, Eos % (Auto) 0.1, Baso % (Auto) 0.4, Absolute Neuts (auto) 5.7, Absolute Lymphs (auto) 1.22, Nucleated RBC % 0 03/21/19 18:04: Sodium 138, Potassium 6.3 H*, Chloride 110 H, Carbon Dioxide 22.0, Anion Gap 6, BUN 64 H, Creatinine 3.21 H, Estim Creat Clear Calc 11.37, Est GFR (MDRD) Af Amer 18 L, Est GFR (MDRD) Non-Af 15 L, BUN/Creatinine Ratio 19.9, Glucose 262 H, Calcium 7.9 L, Troponin I < 0.015 03/21/19 18:04: TSH 2.41 03/21/19 18:50: Urine Color Yellow, Urine Clarity Clear, Urine pH 6.0, Ur Specific [place] 1.010, Urine Protein 500 H, Urine Glucose (UA) 250 H, Urine Ketones Negative, Urine Occult Blood 10 H, Urine Nitrite Negative, Urine Bilirubin Negative, Urine Urobilinogen Normal, Ur Leukocyte Esterase 25 H, Urine RBC 0 SEEN, Urine WBC 0-5 SEEN, Ur Squamous Epith Cells 0-5 SEEN, Urine Bacteria 1+, Urine Mucus 0 SEEN 03/21/19 22:40: Sodium 141, Potassium 5.6 H, Chloride 114 H, Carbon Dioxide 19.0 L, Anion Gap 8, BUN 70 H, Creatinine 3.31 H, Estim Creat Clear Calc 11.03, Est GFR (MDRD) Af Amer 17 L, Est GFR (MDRD) Non-Af 14 L, BUN/Creatinine Ratio 21.1 H , Glucose 298 H, Calcium 7.9 L 03/21/19 22:40: Vitamin D 25-Hydroxy 18.0 L 03/21/19 23:01: POC Glucose 288 H 03/22/19 06:20: WBC 6.3, RBC 3.01 L, Hgb 9.0 L, Hct 28.0 L, MCV 93.0, MCH 29.9, MCHC 32.1, RDW Std Deviation 47.6 H, RDW Coeff of Dee 14.0, Plt Count 160, MPV 11.8, Immature Gran % (Auto) 1.800 H, Neut % (Auto) 67.0, Lymph % (Auto) 15.9 L, [place] % (Auto) 14.0 H, Eos % (Auto) 0.8, Baso % (Auto) 0.5, Absolute Neuts (auto) 4.2, Absolute Lymphs (auto) 1.00, Nucleated RBC % 0 03/22/19 06:20: Sodium 144, Potassium 4.6, Chloride 115 H, Carbon Dioxide 21.0, Anion Gap 8, BUN 64 H, Creatinine 3.25 H, Estim Creat Clear Calc 11.23, Est GFR (MDRD) Af Amer 18 L, Est GFR (MDRD) Non-Af 15 L, BUN/Creatinine Ratio 19.7, Glucose 226 H, Calcium 7.7 L 03/22/19 06:20: Total Creatine Kinase 50 03/22/19 06:37: POC Glucose 190 H 03/22/19 11:36: POC Glucose 151 H 03/22/19 11:50: Sodium 143, Potassium 4.5, Chloride 115 H, Carbon Dioxide 22.0, Anion Gap 6, BUN 63 H, Creatinine 3.20 H, Estim Creat Clear Calc 11.41, Est GFR (MDRD) Af Amer 18 L, Est GFR (MDRD) Non-Af 15 L, BUN/Creatinine Ratio 19.7, Glucose 157 H, Calcium 8.0 L Current Medications Acetaminophen (Tylenol) 650 mg PO Q6H PRN PRN PRN Reason: Pain Score 1-3/Temp > 100.7 F Hydrocodone Bitart/Acetaminophen ([place] 5mg-325mg) 1 - 2 tablet PO Q6H PRN PRN PRN Reason: see parameters Albuterol Sulfate (Ventolin Aerosols) 2.5 mg INHALATION Q2H PRN PRN PRN Reason: sob/wheezing Albuterol Sulfate (Ventolin Aerosols) 2.5 mg INHALATION Q6HWA.RT [facility] Last Admin: 03/22/19 13:00 Dose: Not Given Documented by: Alendronate Sodium (Fosamax) 70 mg PO QWEEK [facility] Last Admin: 03/21/19 23:02 Dose: 70 mg Documented by: Amlodipine Besylate (Norvasc) 10 mg PO DAILY [facility] Last Admin: 03/22/19 08:35 Dose: 10 mg Documented by: Aspirin (Aspirin, Baby) 81 mg PO DAILY@0800 [facility] Last Admin: 03/22/19 08:34 Dose: 81 mg Documented by: Atorvastatin Calcium (Lipitor) 20 mg PO QHS [facility] Atorvastatin Calcium (Lipitor) 40 mg PO QHS [facility] Last Admin: 03/21/19 23:05 Dose: 40 mg Documented by: Budesonide (Pulmicort Aerosol) 0.5 mg INHALATION Q12H.RT [facility] Last Admin: 03/22/19 06:54 Dose: 0.5 mg Documented by: Buspirone HCl (Buspar) 5 mg PO BID [facility] Last Admin: 03/22/19 08:34 Dose: 5 mg Documented by: Carvedilol (Coreg) 12.5 mg PO BID [facility] Last Admin: 03/22/19 08:35 Dose: 12.5 mg Documented by: Cholecalciferol (Vitamin D) 5,000 unit PO DAILY [facility] Last Admin: 03/22/19 08:36 Dose: 5,000 unit Documented by: Doxycycline Hyclate (Doxycycline Hyclate) 20 mg PO BID [facility] Enoxaparin Sodium (Lovenox) 30 mg SC DAILY [facility] Last Admin: 03/22/19 08:36 Dose: 30 mg Documented by: Glucagon () 1 mg IM .X1 PRN PRN Reason: Hypoglycemia Dextrose (Dextrose 10%-Water) 250 mls @ 999 mls/hr IV .Q16M PRN; Protocol PRN Reason: HYPOGLYCEMIA Last Infusion: 03/21/19 19:37 Dose: Infused Documented by: Sodium Chloride () 1,000 mls @ 150 mls/hr IV .Q6H40M [facility] Stop: 03/23/19 08:14 Last Infusion: 03/22/19 15:31 Dose: 75 mls/hr Documented by: Insulin Glargine (Lantus (Bkc)) 15 units SC QHS [facility] Last Admin: 03/21/19 23:15 Dose: 15 u Documented by: Insulin Human Lispro (Humalog Kwikpen (Bk)) 0 unit SC [facility]; Protocol Last Admin: 03/22/19 11:38 Dose: 1 u Documented by: Melatonin (Melatonin) 3 mg PO QHS PRN PRN PRN Reason: INSOMNIA Mirabegron (Myrbetriq) 50 mg PO DAILY [facility] Last Admin: 03/22/19 08:35 Dose: 50 mg Documented by: Pantoprazole Sodium (Protonix) 20 mg PO DAILY [facility] Last Admin: 03/22/19 08:36 Dose: 20 mg Documented by: Sodium Chloride () 10 - 40 ml IV UD PRN PRN Reason: SALINE FLUSH Trazodone HCl (Desyrel) 100 mg PO DAILY [facility] Last Admin: 03/22/19 08:35 Dose: 100 mg Documented by: Vilazodone HCl (Viibryd) 40 mg PO DAILY [facility] Assessment/Plan All Active Problems (Last Reviewed 03/22/19 @ 05:34 by Obey Rabago MD) CHETAN (acute kidney injury) (Acute) Hyperkalemia (Acute) Acute on chronic renal failure CKD stage III Hyperkalemia FSGS. Plan Creatinine is better. Continue IV fluids. Hold cyclosporine, Aldactone for now. Send cyclosporine levels Stop Fosamax. Fosamax was recently started when she started prednisone. Discussed with family
[2019-03-22] MEDS: VILAZODONE HYDROCHLORIDE 20 MG TABLET 40 MG PO (16:23)
[2019-03-22] MEDS: 0.45% Normal Saline 1,000 ML 150 ML IV ×2 (16:27→22:29)
[2019-03-22 16:30] LABS: Bedside Glucose 138 mg/dL (70-110)
[2019-03-22] MEDS: Atorvastatin Calcium 20 MG Tablet PO (21:52)
[2019-03-22 22:05] LABS: Bedside Glucose 291 mg/dL (70-110)
[2019-03-22] MEDS: MELATONIN 3 MG TABLET PO (22:23)
[2019-03-23] VITALS (12 sets, daily range): BP systolic 110–142; BP diastolic 58–73; PULSE 66–89; RESP 14–20; TEMP 36.6–36.9; O2SAT 93–99
[2019-03-23] MEDS: 0.45% Normal Saline 1,000 ML 150 ML IV (05:17)
[2019-03-23] MEDS: Budesonide Respules 0.5 MG/2 ML AMPUL.NEB. INHALATION (06:54)
[2019-03-23] MEDS: Albuterol 2.5 MG/3 ML VIAL.NEB. INHALATION ×2 (06:54→13:35)
[2019-03-23 06:56] LABS: Bedside Glucose 94 mg/dL (70-110)
[2019-03-23 06:57] LABS: Absolute Lymphocyte Count 0.96 X10^3/uL (0.83-4.51); Basophil# 0.02 X10^3/uL; Basophil% 0.4 % (0-1); Eosinophil# 0.05 X10^3/uL; Eosinophils% 1.1 % (0-5); Hematocrit 24.5 % (37-47); Hemoglobin 7.7 g/dL (12.0-15.0); Lymphocyte # 0.96 X10^3/ul (4.0); Lymphocyte % 20.7 % (19-41); Mean Corp Hgb Conc 31.4 g/dL (32-36); Mean Corpuscular Hgb 29.7 pg (27.0-32.0); Mean Corpuscular Volume 94.6 fL (81-99); Mean Platelet Vol. 11.7 fl (6.2-12.0); Monocyte# 0.59 X10^3/uL; Monocyte% 12.7 % (0-10); NRBC Flagged by Analyzer 0 % (0-5); Neutrophil # 2.95 X10^3/uL (2.7-7.7); Neutrophil % 63.8 % (47-70); Platelet Count 124 K/mm3 (150-450); RBC Distribution Width CV 14.3 % (11.6-14.6); RBC Distribution Width SD 48.8 fl (35.1-43.9); Red Blood Count 2.59 M/mm3 (4.2-5.4); White Blood Count 4.6 K/mm3 (4.4-11.0)
[2019-03-23 07:04] LABS: Anion Gap 4 (5-15); BUN 55 mg/dL (7-18); BUN/Creat Ratio 19.6 RATIO (10-20); Calcium,Total 7.1 mg/dL (8.5-10.1); Chloride 117 mmol/L (98-107); EST Glomerular Filtration Rate 17 mL/min (>60); Est Glom Filt Rate - Afr Amer 21 mL/min (>60); Estimated Creatinine Clearance 13.04 ml/min; Glucose 93 mg/dL (74-106); Potassium 4.3 mmol/L (3.5-5.1); Sodium Level 145 mmol/L (136-145)
[2019-03-23] MEDS: Aspirin 81 MG TAB.CHEW PO (08:49)
[2019-03-23] MEDS: Enoxaparin 30 MG/0.3 ML Syringe SC (08:50)
[2019-03-23] MEDS: busPIRone 5 MG Tablet PO ×2 (08:50→20:37)
[2019-03-23] MEDS: Mirabegron 50 MG TAB.ER.24H PO (08:50)
[2019-03-23] MEDS: Carvedilol 12.5 MG Tablet PO ×2 (08:50→20:38)
[2019-03-23] MEDS: Pantoprazole Sodium 20 MG Tablet PO (08:51)
[2019-03-23] MEDS: amLODIPine 10 MG Tablet PO (08:51)
[2019-03-23] MEDS: VILAZODONE HYDROCHLORIDE 20 MG TABLET 40 MG PO (08:51)
--- NOTE | 2019-03-23 10:33 | PCM.PN.HOSP ---
Patient Problems: Active and Suspected Problems (Last Reviewed 03/22/19 @ 05:34 by Obey Rabago MD) CHETAN (acute kidney injury) (Acute) Hyperkalemia (Acute) Subjective: Patient seen and examined. She feels better today. She denies any lightheadedness or dizziness and she states her generalized weakness is getting better. Review of systems otherwise negative. Labs and vitals reviewed. Creatinine has trended down to 2.8 today. CPK was only 50 making rhabdomyolysis quite unlikely. She has remained hemodynamically stable. Vitals/I&O's: Vital Signs Temp Pulse Resp BP Pulse Ox 98.2 F 89 14 140/62 H 99 03/23/19 09:20 03/23/19 09:20 03/23/19 09:20 03/23/19 09:20 03/23/19 09:20 Oxygen Delivery Method Room Air Weight: 170 lb 13.732 oz Body Mass Index (BMI) 30.2 Intake and Output for Last 24 Hours 03/21/19 03/22/19 03/23/19 23:59 23:59 23:59 Intake Total 250.05 / 370.05 3700 / 4000 1500 / 1500 Balance 250.05 / 370.05 3700 / 4000 1500 / 1500 General: Alert, Oriented x3, Cooperative, No apparent distress HEENT: Atraumatic, PERRLA, EOMI, Normocephalic Oral: Dry Mucosa Neck: Supple, No JVD, Negative Carotid Bruits, Negative Hepatojugular Reflux Lungs: Clear to auscultation, Normal air movement, No rhonchi, No wheeze Abdomen: Bowel Sounds Present, Soft, Non Tender, Non-Distended, No Hepato-splenomegaly Extremities: No clubbing, No cyanosis, Capillary Refill Less than 3 Seconds, - - 2+ LE pitting bipedal edema; with minimal tenderness on palpation Skin: No rashes, No breakdown Musculoskeletal: - - minimal tenderness on palpation of lower extremities Lymphatic: No Cervical, Supraclavicular, or Inguinal Adenopathy Neurological: Cranial nerves II-XII grossly intact, Neuro grossly intact, Motor Exam 5/5 strength throughout Psych/Mental Status: Normal Affect, Appropriate, Alert and oriented to time, place, person, mood and affect Laboratory Results 03/22/19 11:36: POC Glucose 151 H 03/22/19 11:50: Sodium 143, Potassium 4.5, Chloride 115 H, Carbon Dioxide 22.0, Anion Gap 6, BUN 63 H, Creatinine 3.20 H, Estim Creat Clear Calc 11.41, Est GFR (MDRD) Af Amer 18 L, Est GFR (MDRD) Non-Af 15 L, BUN/Creatinine Ratio 19.7, Glucose 157 H, Calcium 8.0 L 03/22/19 16:21: POC Glucose 138 H 03/22/19 21:57: POC Glucose 291 H 03/23/19 06:26: WBC 4.6, RBC 2.59 L, Hgb 7.7 L, Hct 24.5 L, MCV 94.6, MCH 29.7, MCHC 31.4 L, RDW Std Deviation 48.8 H, RDW Coeff of Dee 14.3, Plt Count 124 L, MPV 11.7, Immature Gran % (Auto) 1.300 H, Neut % (Auto) 63.8, Lymph % (Auto) 20.7, [place] % (Auto) 12.7 H, Eos % (Auto) 1.1, Baso % (Auto) 0.4, Absolute Neuts (auto) 3.0, Absolute Lymphs (auto) 0.96, Nucleated RBC % 0 03/23/19 06:26: Sodium 145, Potassium 4.3, Chloride 117 H, Carbon Dioxide 24.0, Anion Gap 4 L, BUN 55 H, Creatinine 2.80 H, Estim Creat Clear Calc 13.04, Est GFR (MDRD) Af Amer 21 L, Est GFR (MDRD) Non-Af 17 L, BUN/Creatinine Ratio 19.6, Glucose 93, Calcium 7.1 L 03/23/19 06:47: POC Glucose 94 Diagnostic Data Renal Ultrasound 03/22/19 12:11 IMPRESSION: Bilateral renal cortical thinning and multiple renal cysts. No evidence for stones or obstructive uropathy. Incidental note is made of a 2.7 cm cystic structure in the left adnexa. Consider correlation with pelvic sonogram. Electronically Signed: Manny Hirsch, at 16:30 EST Tel , Service support , Current Medications Acetaminophen (Tylenol) 650 mg PO Q6H PRN PRN PRN Reason: Pain Score 1-3/Temp > 100.7 F Hydrocodone Bitart/Acetaminophen ([place] 5mg-325mg) 1 - 2 tablet PO Q6H PRN PRN PRN Reason: see parameters Albuterol Sulfate (Ventolin Aerosols) 2.5 mg INHALATION Q2H PRN PRN PRN Reason: sob/wheezing Albuterol Sulfate (Ventolin Aerosols) 2.5 mg INHALATION Q6HWA.RT [facility] Last Admin: 03/23/19 06:54 Dose: 2.5 mg Documented by: Amlodipine Besylate (Norvasc) 10 mg PO DAILY [facility] Last Admin: 03/23/19 08:51 Dose: 10 mg Documented by: Aspirin (Aspirin, Baby) 81 mg PO DAILY@0800 [facility] Last Admin: 03/23/19 08:49 Dose: 81 mg Documented by: Atorvastatin Calcium (Lipitor) 20 mg PO QHS [facility] Last Admin: 03/22/19 21:52 Dose: 20 mg Documented by: Atorvastatin Calcium (Lipitor) 40 mg PO QHS [facility] Last Admin: 03/21/19 23:05 Dose: 40 mg Documented by: Budesonide (Pulmicort Aerosol) 0.5 mg INHALATION Q12H.RT [facility] Last Admin: 03/23/19 06:54 Dose: 0.5 mg Documented by: Buspirone HCl (Buspar) 5 mg PO BID [facility] Last Admin: 03/23/19 08:50 Dose: 5 mg Documented by: Carvedilol (Coreg) 12.5 mg PO BID [facility] Last Admin: 03/23/19 08:50 Dose: 12.5 mg Documented by: Cholecalciferol (Vitamin D) 5,000 unit PO DAILY [facility] Last Admin: 03/23/19 08:51 Dose: 5,000 unit Documented by: Doxycycline Hyclate (Doxycycline Hyclate) 20 mg PO BID [facility] Last Admin: 03/23/19 08:50 Dose: 20 mg Documented by: Enoxaparin Sodium (Lovenox) 30 mg SC DAILY [facility] Last Admin: 03/23/19 08:50 Dose: 30 mg Documented by: Glucagon () 1 mg IM .X1 PRN PRN Reason: Hypoglycemia Dextrose (Dextrose 10%-Water) 250 mls @ 999 mls/hr IV .Q16M PRN; Protocol PRN Reason: HYPOGLYCEMIA Last Infusion: 03/21/19 19:37 Dose: Infused Documented by: Insulin Glargine (Lantus (Bk)) 15 units SC QHS [facility] Last Admin: 03/22/19 21:58 Dose: 15 u Documented by: Insulin Human Lispro (Humalog Kwikpen ([facility])) 0 unit SC ACHS [facility]; Protocol Last Admin: 03/23/19 06:50 Dose: Not Given Documented by: Melatonin (Melatonin) 3 mg PO QHS PRN PRN PRN Reason: INSOMNIA Last Admin: 03/22/19 22:23 Dose: 3 mg Documented by: Mirabegron (Myrbetriq) 50 mg PO DAILY [facility] Last Admin: 03/23/19 08:50 Dose: 50 mg Documented by: Pantoprazole Sodium (Protonix) 20 mg PO DAILY [facility] Last Admin: 03/23/19 08:51 Dose: 20 mg Documented by: Sodium Chloride () 10 - 40 ml IV UD PRN PRN Reason: SALINE FLUSH Trazodone HCl (Desyrel) 100 mg PO DAILY [facility] Last Admin: 03/23/19 07:42 Dose: Not Given Documented by: Vilazodone HCl (Viibryd) 40 mg PO DAILY [facility] Last Admin: 03/23/19 08:51 Dose: 40 mg Documented by: STROKE Vital Signs/Narrative: Vital Signs Temp Pulse Resp BP Pulse Ox 03/23/19 09:20 98.2 F 89 14 140/62 H 99 03/23/19 07:00 75 03/23/19 06:54 73 16 96 Medical Necessity - Tobacco Use Smoking Status: Former smoker Tobacco Use: Cigarettes Assessment/Plan All Active Problems (Last Reviewed 03/22/19 @ 05:34 by Obey Rabago MD) CHETAN (acute kidney injury) (Acute) Hyperkalemia (Acute) 1. CHETAN on CKD 3 and hyperkalemia hyperkalemia has resolved. CR down to 2.8 today; baseline is ~ 1.8 continue gentle hydration with IVF. HIREN-I, hydrochlorthiazide and cyclosporine on hold. Fosamax on hold too CHETAN likely due to cyclosporine Renal ultrasound shows bilateral renal cortical thickening and multiple renal cysts no evidence of stone or obstructive uropathy. Incidental finding of 2.7 cm cystic structure in the left adnexa. Recommend correlation with pelvic ultrasound. Nephrology on board. Cyclosporine levels pending. 2. Debility due to uremia and hyperkalemia PT/OT on board fall percautioins 3. 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 Also under 1. 4. Type 2 diabetes mellitus: On insulin sliding scale. Accu-Cheks AC at bedtime. on Lantus 15 units nightly; usually on 1 2 units nightly at home. 5. History of bilateral lower extremity edema: Uses ROSHAN hose at home. Stable. 6. Incidental left adnexal cystic structure Renal ultrasound showed incidental finding of 2.7 cm cystic structure in the left adnexa. Recommend pelvic ultrasound for correlation. To follow-up with primary care doctor for pelvic ultrasound to be done on outpatient basis. 7. Hypertension: On carvedilol. 8. Urinary frequency: Stable. On mirabegron. 9. Rosacea: on doxycycline. 10. Meningioma with history of headaches: on prn hydrocodone. DVT prophylaxis: Lovenox, renally dosed. CODE STATUS: DNR CCA Code Visit Inpatient E&M: 21739 Subs Hosp L3
[2019-03-23 11:11] LABS: Bedside Glucose 117 mg/dL (70-110)
[2019-03-23] MEDS: 0.45% Normal Saline 1,000 ML 125 ML IV ×2 (11:31→18:48)
--- NOTE | 2019-03-23 13:10 | PCM.PN.REN ---
Patient Problems: Active and Suspected Problems (Last Reviewed 03/22/19 @ 05:34 by Obey Rabago MD) CHETAN (acute kidney injury) (Acute) Hyperkalemia (Acute) Subjective: No new complaints - Physical Exam Vitals/I&O's: Vital Signs Temp Pulse Resp BP Pulse Ox 98.2 F 89 14 140/62 H 99 03/23/19 09:20 03/23/19 09:20 03/23/19 09:20 03/23/19 09:20 03/23/19 09:20 Oxygen Delivery Method Room Air Weight: 77.5 kg Body Mass Index (BMI) 30.2 Intake and Output for Last 24 Hours 03/21/19 03/22/19 03/23/19 23:59 23:59 23:59 Intake Total 250.05 / 370.05 3700 / 4000 2990 / 2990 Balance 250.05 / 370.05 3700 / 4000 2990 / 2990 General: Alert, Oriented x3, Cooperative HEENT: Atraumatic, PERRLA, EOMI, Normocephalic Neck: Supple, No JVD, Negative Carotid Bruits Lungs: Clear to auscultation, Normal air movement Cardiovascular: Regular rate, No murmurs Abdomen: Bowel Sounds Present, Soft, Non Tender Extremities: No edema, Capillary Refill Less than 3 Seconds Skin: No rashes, No breakdown Musculoskeletal: No Tenderness to Palpation of Joints or Extremities Neurological: Cranial nerves II-XII grossly intact Psych/Mental Status: Normal Affect, Appropriate Laboratory Results 03/22/19 11:50: Sodium 143, Potassium 4.5, Chloride 115 H, Carbon Dioxide 22.0, Anion Gap 6, BUN 63 H, Creatinine 3.20 H, Estim Creat Clear Calc 11.41, Est GFR (MDRD) Af Amer 18 L, Est GFR (MDRD) Non-Af 15 L, BUN/Creatinine Ratio 19.7, Glucose 157 H, Calcium 8.0 L 03/22/19 16:21: POC Glucose 138 H 03/22/19 21:57: POC Glucose 291 H 03/23/19 06:26: WBC 4.6, RBC 2.59 L, Hgb 7.7 L, Hct 24.5 L, MCV 94.6, MCH 29.7, MCHC 31.4 L, RDW Std Deviation 48.8 H, RDW Coeff of Dee 14.3, Plt Count 124 L, MPV 11.7, Immature Gran % (Auto) 1.300 H, Neut % (Auto) 63.8, Lymph % (Auto) 20.7, [place] % (Auto) 12.7 H, Eos % (Auto) 1.1, Baso % (Auto) 0.4, Absolute Neuts (auto) 3.0, Absolute Lymphs (auto) 0.96, Nucleated RBC % 0 03/23/19 06:26: Sodium 145, Potassium 4.3, Chloride 117 H, Carbon Dioxide 24.0, Anion Gap 4 L, BUN 55 H, Creatinine 2.80 H, Estim Creat Clear Calc 13.04, Est GFR (MDRD) Af Amer 21 L, Est GFR (MDRD) Non-Af 17 L, BUN/Creatinine Ratio 19.6, Glucose 93, Calcium 7.1 L 03/23/19 06:26: Cyclosporine Pending 03/23/19 06:47: POC Glucose 94 03/23/19 11:06: POC Glucose 117 H Current Medications Acetaminophen (Tylenol) 650 mg PO Q6H PRN PRN PRN Reason: Pain Score 1-3/Temp > 100.7 F Hydrocodone Bitart/Acetaminophen ([place] 5mg-325mg) 1 - 2 tablet PO Q6H PRN PRN PRN Reason: see parameters Albuterol Sulfate (Ventolin Aerosols) 2.5 mg INHALATION Q2H PRN PRN PRN Reason: sob/wheezing Albuterol Sulfate (Ventolin Aerosols) 2.5 mg INHALATION Q6HWA.RT [facility] Last Admin: 03/23/19 06:54 Dose: 2.5 mg Documented by: Amlodipine Besylate (Norvasc) 10 mg PO DAILY [facility] Last Admin: 03/23/19 08:51 Dose: 10 mg Documented by: Aspirin (Aspirin, Baby) 81 mg PO DAILY@0800 [facility] Last Admin: 03/23/19 08:49 Dose: 81 mg Documented by: Atorvastatin Calcium (Lipitor) 20 mg PO QHS [facility] Last Admin: 03/22/19 21:52 Dose: 20 mg Documented by: Atorvastatin Calcium (Lipitor) 40 mg PO QHS [facility] Last Admin: 03/21/19 23:05 Dose: 40 mg Documented by: Budesonide (Pulmicort Aerosol) 0.5 mg INHALATION Q12H.RT [facility] Last Admin: 03/23/19 06:54 Dose: 0.5 mg Documented by: Buspirone HCl (Buspar) 5 mg PO BID [facility] Last Admin: 03/23/19 08:50 Dose: 5 mg Documented by: Carvedilol (Coreg) 12.5 mg PO BID [facility] Last Admin: 03/23/19 08:50 Dose: 12.5 mg Documented by: Cholecalciferol (Vitamin D) 5,000 unit PO DAILY [facility] Last Admin: 03/23/19 08:51 Dose: 5,000 unit Documented by: Doxycycline Hyclate (Doxycycline Hyclate) 20 mg PO BID [facility] Last Admin: 03/23/19 08:50 Dose: 20 mg Documented by: Enoxaparin Sodium (Lovenox) 30 mg SC DAILY [facility] Last Admin: 03/23/19 08:50 Dose: 30 mg Documented by: Glucagon () 1 mg IM .X1 PRN PRN Reason: Hypoglycemia Dextrose (Dextrose 10%-Water) 250 mls @ 999 mls/hr IV .Q16M PRN; Protocol PRN Reason: HYPOGLYCEMIA Last Infusion: 03/21/19 19:37 Dose: Infused Documented by: Sodium Chloride () 1,000 mls @ 125 mls/hr IV .Q8H [facility] Stop: 03/24/19 03:14 Last Admin: 03/23/19 11:31 Dose: 125 mls/hr Documented by: Insulin Glargine (Lantus (Bkc)) 15 units SC QHS [facility] Last Admin: 03/22/19 21:58 Dose: 15 u Documented by: Insulin Human Lispro (Humalog Kwikpen (Bkc)) 0 unit SC ACHS [facility]; Protocol Last Admin: 03/23/19 11:31 Dose: Not Given Documented by: Melatonin (Melatonin) 3 mg PO QHS PRN PRN PRN Reason: INSOMNIA Last Admin: 03/22/19 22:23 Dose: 3 mg Documented by: Mirabegron (Myrbetriq) 50 mg PO DAILY [facility] Last Admin: 03/23/19 08:50 Dose: 50 mg Documented by: Pantoprazole Sodium (Protonix) 20 mg PO DAILY [facility] Last Admin: 03/23/19 08:51 Dose: 20 mg Documented by: Sodium Chloride () 10 - 40 ml IV UD PRN PRN Reason: SALINE FLUSH Trazodone HCl (Desyrel) 100 mg PO DAILY [facility] Last Admin: 03/23/19 07:42 Dose: Not Given Documented by: Vilazodone HCl (Viibryd) 40 mg PO DAILY [facility] Last Admin: 03/23/19 08:51 Dose: 40 mg Documented by: Medical Necessity - Tobacco Use Smoking Status: Former smoker Tobacco Use: Cigarettes Assessment/Plan All Active Problems (Last Reviewed 03/22/19 @ 05:34 by Obey Rabago MD) CHETAN (acute kidney injury) (Acute) Hyperkalemia (Acute) Acute on chronic renal failure CKD stage III Hyperkalemia FSGS. Plan Creatinine is better. Continue IV fluids. Hold cyclosporine, Aldactone for now. Pending cyclosporine levels Stop Fosamax. Fosamax was recently started when she started prednisone. Discussed with family and hospitalist Since creatinine is better, no further work-up needed. Plan is to hold cyclosporine and spironolactone at the time of discharge. Repeat BMP next week. Depending on the labs, will try to resume cyclosporine. We should have a level by then.
--- NOTE | 2019-03-23 14:02 | CASEMGMT ---
ARSENIO RAMIREZ NOTE: PT/OT notes have been reviewed. OT recommending further therapy. To room to talk with pt. Pt states she was just in the process of starting therapy @ [facility] but is unsure if it was for PT or OT. Call placed to [facility]. Pt has active order there for PT from Dr Albrecht. Pt agreeable to having OT eval done there to determine if they also feel she needs OT. Will obtain Script for OT and fax to [facility]. Pt made aware and voiced appreciation. Kelly GORDON RN CM
[2019-03-23] MEDS: Insulin Lispro 100 UNIT/ML INSULN.PEN SC (16:28)
[2019-03-23 16:36] LABS: Bedside Glucose 194 mg/dL (70-110)
[2019-03-23] MEDS: traZODone 100 MG Tablet PO (20:37)
[2019-03-23] MEDS: Atorvastatin Calcium 20 MG Tablet PO (20:39)
[2019-03-23] MEDS: Atorvastatin Calcium 40 MG Tablet PO (20:40)
[2019-03-23] MEDS: MELATONIN 3 MG TABLET PO (20:41)
[2019-03-23 21:30] LABS: Bedside Glucose 147 mg/dL (70-110)
[2019-03-24 02:09] VITALS: BP 127/61; PULSE 79; RESP 20; TEMP 36.9; O2SAT 94
[2019-03-24 03:08] VITALS: PULSE 75
[2019-03-24 06:37] VITALS: PULSE 79
[2019-03-24 06:40] VITALS: BP 133/70; PULSE 81; RESP 20; TEMP 36.9; O2SAT 93
[2019-03-24 06:51] LABS: Bedside Glucose 114 mg/dL (70-110)
[2019-03-24 06:58] LABS: Absolute Lymphocyte Count 0.81 X10^3/uL (0.83-4.51); Absolute Neutrophil Count 2.4 X10^3/uL (2.0-7.7); Basophil# 0.02 X10^3/uL; Basophil% 0.5 % (0-1); Eosinophil# 0.05 X10^3/uL; Eosinophils% 1.3 % (0-5); Hemoglobin 7.7 g/dL (12.0-15.0); Lymphocyte # 0.81 X10^3/ul (4.0); Lymphocyte % 20.7 % (19-41); Mean Corp Hgb Conc 32.1 g/dL (32-36); Mean Corpuscular Hgb 29.8 pg (27.0-32.0); Mean Platelet Vol. 12.1 fl (6.2-12.0); Monocyte# 0.57 X10^3/uL; Monocyte% 14.6 % (0-10); NRBC Flagged by Analyzer 0 % (0-5); Neutrophil # 2.39 X10^3/uL (2.7-7.7); Neutrophil % 61.1 % (47-70); Platelet Count 113 K/mm3 (150-450); RBC Distribution Width CV 14.2 % (11.6-14.6); RBC Distribution Width SD 47.8 fl (35.1-43.9); Red Blood Count 2.58 M/mm3 (4.2-5.4); White Blood Count 3.9 K/mm3 (4.4-11.0)
[2019-03-24 07:08] LABS: Anion Gap 7 (5-15); BUN 47 mg/dL (7-18); BUN/Creat Ratio 18.2 RATIO (10-20); Calcium,Total 7.1 mg/dL (8.5-10.1); Chloride 118 mmol/L (98-107); Creatinine, Serum 2.58 mg/dL (0.55-1.02); EST Glomerular Filtration Rate 19 mL/min (>60); Est Glom Filt Rate - Afr Amer 23 mL/min (>60); Estimated Creatinine Clearance 14.15 ml/min; Glucose 125 mg/dL (74-106); Potassium 4.1 mmol/L (3.5-5.1); Sodium Level 144 mmol/L (136-145)
[2019-03-24] MEDS: 0.9% Saline Lock 10 ML Syringe IV (08:14)
[2019-03-24] MEDS: Aspirin 81 MG TAB.CHEW PO (08:14)
[2019-03-24] MEDS: Carvedilol 12.5 MG Tablet PO (08:14)
[2019-03-24] MEDS: busPIRone 5 MG Tablet PO (08:14)
[2019-03-24] MEDS: Pantoprazole Sodium 20 MG Tablet PO (08:15)
[2019-03-24] MEDS: Mirabegron 50 MG TAB.ER.24H PO (08:16)
[2019-03-24] MEDS: amLODIPine 10 MG Tablet PO (08:16)
[2019-03-24] MEDS: VILAZODONE HYDROCHLORIDE 20 MG TABLET 40 MG PO (08:17)
--- NOTE | 2019-03-24 10:32 | DCINST_ITS ---
- Discharge Diagnoses Current Active Problems: Current Active and Chronic Problems (Last Reviewed 03/22/19 @ 05:34 by Obey Rabago MD) CHETAN (acute kidney injury) (Acute) Hyperkalemia (Acute) You will use the following diet at home:: Renal (restricted protein/sodium) Your food should be the consistency of: Regular Your liquids should be the consistency of: Regular/Thin Discharge Activity: Return to Normal Activity Weight Bearing Status: Weight bearing as tolerated Call your doctor if you observe: Inability to urinate, Shortness of breath, Swelling in the ankles Instructions: Acute Kidney Failure, Hyperkalemia, Eating a Low Potassium Diet Additional Instructions: keep well hydrated orally at home. To have follow up CBC and BMP on Tuesday03/26/19 to check on kidney function and hemoglobin. To be referred to gastroenterology for GI workup by PCP if anemia worsens. Allergies/Adverse Reactions: Allergies morphine Adverse Reaction (Verified 03/21/19 17:35) Shortness of breath Medications to take at Discharge Aspirin [Aspirin, Baby] 81 mg PO DAILY@0800 04/20/16 Carvedilol [Coreg] 12.5 mg PO BID 04/20/16 Vilazodone Hydrochloride [Viibryd] 40 mg PO DAILY 04/20/16 traZODone [Desyrel] 100 mg PO DAILY 04/20/16 Albuterol Sulfate [Proventil Hfa] 6.7 gm IH BID PRN 03/21/19 Amlodipine Besylate 10 mg PO DAILY 03/21/19 Atorvastatin Calcium 20 mg PO DAILY 03/21/19 Atorvastatin Calcium 40 mg PO DAILY 03/21/19 Budesonide/Formoterol Fumarate [Symbicort 160-4.5 Mcg Inhaler] 6 gm IH BID 03/21/19 Cholecalciferol (VIT D3) [Vitamin D3] 5,000 unit PO DAILY 03/21/19 Doxycycline Hyclate 20 mg PO BID 03/21/19 Hydrocodone/Acetaminophen [Hydrocodone-Acetamin 5-325 mg] 1 - 2 tab PO Q6H PRN 03/21/19 Insulin Detemir [Levemir] 20 unit SQ QHS 03/21/19 Mirabegron [Myrbetriq] 50 mg PO DAILY 03/21/19 Omeprazole 20 mg PO DAILY 03/21/19 busPIRone [Buspar] 5 mg PO BID 03/21/19 Ferrous Sulfate 325 mg PO BID #60 tab 03/24/19 The following prescriptions were given: Ferrous Sulfate 325 mg PO BID #60 tab Transmission Status: Pending to [facility]/pharmacy #[id number] Primary Care Physician: Chaparrita Albrecht DO [Primary Care Provider] - Please follow up with your Primary Care Physician in: Tuesday03/26/19 Test Results: Test results from this visit will be discussed in further detail at your follow- up appointment, if applicable. Please Follow Up With: Jennyfer Bagley MD When: 03/26/19Tuesday Proposed Discharge Date: 03/24/19
--- NOTE | 2019-03-24 10:35 | PCM.DC.SUM ---
Discharge Date and Diagnosis Date of Admission: 03/21/19 Date of Discharge: 03/24/19 - Primary Discharge Diagnosis Active and Suspected Problems (Last Reviewed 03/22/19 @ 05:34 by Obey Rabago MD) CHETAN (acute kidney injury) (Acute) Hyperkalemia (Acute) Hospital Course and Treatment Imaging Results: Diagnostic Data Renal Ultrasound 03/22/19 12:11 IMPRESSION: Bilateral renal cortical thinning and multiple renal cysts. No evidence for stones or obstructive uropathy. Incidental note is made of a 2.7 cm cystic structure in the left adnexa. Consider correlation with pelvic sonogram. Electronically Signed: Manny Joycelyn, at 16:30 EST Tel , Service support , nephrology- Dr Bagley Operations: None Procedures: None Summary of Care Provided: The patient is a 79 year old F with a past medical history of diabetes mellitus and focal segmental glomerulosclerosis who was admitted through the ED on 03/21/2019 on account of abnormal outpatient labs. Labs done by her PCP showed hyperkalemia and elevated creatinine. She had gone to her PCP on account of generalized weakness and the labs mentioned above were done. Patient had been started on p.o. 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 In the ED, she was found to have markedly elevated potassium (6.3) and creatinine was also increased (3.2). She was given albuterol and insulin with glucose to deplete the potassium and started on Kayexalate. He was also started on IV fluid normal saline for hydration. Cyclosporine was held as well as lisinopril. He had also recently been started on Fosamax and this was held. Nephrology was consulted. Creatinine gradually trended down. CPK was checked but was only 50. Creatinine gradually trended down to a level of 2.58 at time of discharge. She had a renal ultrasound which showed bilateral renal cortical thickening and multiple renal cysts but no evidence of stone or obstructive uropathy. There was an incidental finding of 2.7 cm cystic structure in the left adnexa and was recommended that it be correlated with pelvic ultrasound. Patient remained stable and cyclosporine levels were ordered but these were pending at time of discharge. She was discharged home on 03/24/2019. Cyclosporine was discontinued as well as Fosamax and spironolactone as well as hydrochlorothiazide and lisinopril. She is continue with carvedilol for her blood pressure. Of note, she was also noted to have a drop in her hemoglobin from 9.9 on admission to 7.7 at time of discharge. This was thought to be hemodilution no as all the cell indices had fallen namely white cell count and platelets had also dropped significantly. Iron panel checked showed iron level of 33 with TIBC of 182 and iron saturation of 18.1 with a ferritin of 81. She was discharged with a prescription for p.o. ferrous sulfate supplements. She is to follow-up with her primary care doctor for repeat CBC and BMP on 03/26/2019 to check for potassium level, creatinine level and hemoglobin level. Patient does states she had a colonoscopy just about a year ago and some polyps were removed. She is to follow-up with primary care doctor for follow-up for left adnexal cystic structure as picked up on the renal ultrasound. Seen and examined prior to discharge. She felt well and had no complaints and was eager to be discharged. Review of systems is otherwise negative. Labs and vitals reviewed. Home medication reviewed and reconciled. o/e: Vital Signs Height 5 ft 3 in Weight: 170 lb 13.732 oz Weight in Pounds 170.9 lbs Pulse Ox 93 Temperature 98.5 F Pulse Rate 81 Respiratory Rate 20 Blood Pressure 133/70 Blood Pressure Position Semi-Fowlers [] General: Alert, Oriented x3, Cooperative, No apparent distress HEENT: Atraumatic, PERRLA, EOMI, Normocephalic Oral: Dry Mucosa Neck: Supple, No JVD, Negative Carotid Bruits, Lungs: Clear to auscultation, Normal air movement, No rhonchi, No wheeze Abdomen: Bowel Sounds Present, Soft, Non Tender, Non-Distended, No Hepato-splenomegaly Extremities: No clubbing, No cyanosis, Capillary Refill Less than 3 Seconds, - - 1+ LE pitting bipedal edema, no tenderness Skin: No rashes, No breakdown Musculoskeletal: - - minimal tenderness on palpation of lower extremities Lymphatic: No Cervical, Supraclavicular, or Inguinal Adenopathy Neurological: Cranial nerves II-XII grossly intact, Neuro grossly intact, Motor Exam 5/5 strength throughout Psych/Mental Status: Normal Affect, Appropriate, Alert and oriented to time, place, person, mood and affect Plan as above. - Physical Exam Vitals/I&O's: Vital Signs Temp Pulse Resp BP Pulse Ox 98.5 F 81 20 H 133/70 H 93 03/24/19 06:40 03/24/19 06:40 03/24/19 06:40 03/24/19 06:40 03/24/19 06:40 Oxygen Delivery Method Room Air Weight: 170 lb 13.732 oz Body Mass Index (BMI) 30.2 Intake and Output for Last 24 Hours 03/22/19 03/23/19 03/24/19 23:59 23:59 23:59 Intake Total 3700 / 4000 4600.42 / 4600.42 1050 / 1050 Balance 3700 / 4000 4600.42 / 4600.42 1050 / 1050 Laboratory Results 03/23/19 06:26: Cyclosporine Pending 03/23/19 11:06: POC Glucose 117 H 03/23/19 16:27: POC Glucose 194 H 03/23/19 20:47: POC Glucose 147 H 03/24/19 06:12: WBC 3.9 L, RBC 2.58 L, Hgb 7.7 L, Hct 24.0 L, MCV 93.0, MCH 29.8, MCHC 32.1, RDW Std Deviation 47.8 H, RDW Coeff of Dee 14.2, Plt Count 113 L, MPV 12.1 H, Immature Gran % (Auto) 1.800 H, Neut % (Auto) 61.1, Lymph % (Auto) 20.7, [place] % (Auto) 14.6 H, Eos % (Auto) 1.3, Baso % (Auto) 0.5, Absolute Neuts (auto) 2.4, Absolute Lymphs (auto) 0.81 L, Nucleated RBC % 0 03/24/19 06:12: Sodium 144, Potassium 4.1, Chloride 118 H, Carbon Dioxide 19.0 L, Anion Gap 7, BUN 47 H, Creatinine 2.58 H, Estim Creat Clear Calc 14.15, Est GFR (MDRD) Af Amer 23 L, Est GFR (MDRD) Non-Af 19 L, BUN/Creatinine Ratio 18.2, Glucose 125 H, Calcium 7.1 L 03/24/19 06:43: POC Glucose 114 H Current Medications Acetaminophen (Tylenol) 650 mg PO Q6H PRN PRN PRN Reason: Pain Score 1-3/Temp > 100.7 F Hydrocodone Bitart/Acetaminophen ([place] 5mg-325mg) 1 - 2 tablet PO Q6H PRN PRN PRN Reason: see parameters Albuterol Sulfate (Ventolin Aerosols) 2.5 mg INHALATION Q2H PRN PRN PRN Reason: sob/wheezing Albuterol Sulfate (Ventolin Aerosols) 2.5 mg INHALATION Q6HWA.RT [facility] Last Admin: 03/23/19 18:52 Dose: Not Given Documented by: Amlodipine Besylate (Norvasc) 10 mg PO DAILY [facility] Last Admin: 03/24/19 08:16 Dose: 10 mg Documented by: Aspirin (Aspirin, Baby) 81 mg PO DAILY@0800 [facility] Last Admin: 03/24/19 08:14 Dose: 81 mg Documented by: Atorvastatin Calcium (Lipitor) 20 mg PO QHS [facility] Last Admin: 03/23/19 20:39 Dose: 20 mg Documented by: Atorvastatin Calcium (Lipitor) 40 mg PO QHS [facility] Last Admin: 03/23/19 20:40 Dose: 40 mg Documented by: Budesonide (Pulmicort Aerosol) 0.5 mg INHALATION Q12H.RT [facility] Last Admin: 03/23/19 18:52 Dose: Not Given Documented by: Buspirone HCl (Buspar) 5 mg PO BID [facility] Last Admin: 03/24/19 08:14 Dose: 5 mg Documented by: Carvedilol (Coreg) 12.5 mg PO BID [facility] Last Admin: 03/24/19 08:14 Dose: 12.5 mg Documented by: Cholecalciferol (Vitamin D) 5,000 unit PO DAILY [facility] Last Admin: 03/24/19 08:15 Dose: 5,000 unit Documented by: Doxycycline Hyclate (Doxycycline Hyclate) 20 mg PO BID [facility] Last Admin: 03/24/19 08:16 Dose: 20 mg Documented by: Glucagon () 1 mg IM .X1 PRN PRN Reason: Hypoglycemia Dextrose (Dextrose 10%-Water) 250 mls @ 999 mls/hr IV .Q16M PRN; Protocol PRN Reason: HYPOGLYCEMIA Last Infusion: 03/21/19 19:37 Dose: Infused Documented by: Insulin Glargine (Lantus (Bk)) 15 units SC QHS [facility] Last Admin: 03/23/19 20:47 Dose: 15 units Documented by: Insulin Human Lispro (Humalog Kwikpen ([facility])) 0 unit SC ACHS [facility]; Protocol Last Admin: 03/24/19 07:00 Dose: Not Given Documented by: Melatonin (Melatonin) 3 mg PO QHS PRN PRN PRN Reason: INSOMNIA Last Admin: 03/23/19 20:41 Dose: 3 mg Documented by: Mirabegron (Myrbetriq) 50 mg PO DAILY [facility] Last Admin: 03/24/19 08:16 Dose: 50 mg Documented by: Pantoprazole Sodium (Protonix) 20 mg PO DAILY [facility] Last Admin: 03/24/19 08:15 Dose: 20 mg Documented by: Sodium Chloride () 10 - 40 ml IV UD PRN PRN Reason: SALINE FLUSH Last Admin: 03/24/19 08:14 Dose: 20 ml Documented by: Trazodone HCl (Desyrel) 100 mg PO QHS [facility] Vilazodone HCl (Viibryd) 40 mg PO DAILY [facility] Last Admin: 03/24/19 08:17 Dose: 40 mg Documented by: Discharge Diet: Renal Diet Discharge Activity: Return to Normal Activity Weight Bearing Status: Weight bearing as tolerated Call your doctor if you observe: Inability to urinate, Shortness of breath, Swelling in the ankles Home Medications: Medications to take at Discharge Aspirin [Aspirin, Baby] 81 mg PO DAILY@0800 04/20/16 Carvedilol [Coreg] 12.5 mg PO BID 04/20/16 Vilazodone Hydrochloride [Viibryd] 40 mg PO DAILY 04/20/16 traZODone [Desyrel] 100 mg PO DAILY 04/20/16 Albuterol Sulfate [Proventil Hfa] 6.7 gm IH BID PRN 03/21/19 Amlodipine Besylate 10 mg PO DAILY 03/21/19 Atorvastatin Calcium 20 mg PO DAILY 03/21/19 Atorvastatin Calcium 40 mg PO DAILY 03/21/19 Budesonide/Formoterol Fumarate [Symbicort 160-4.5 Mcg Inhaler] 6 gm IH BID 03/21/19 Cholecalciferol (VIT D3) [Vitamin D3] 5,000 unit PO DAILY 03/21/19 Doxycycline Hyclate 20 mg PO BID 03/21/19 Hydrocodone/Acetaminophen [Hydrocodone-Acetamin 5-325 mg] 1 - 2 tab PO Q6H PRN 03/21/19 Insulin Detemir [Levemir] 20 unit SQ QHS 03/21/19 Mirabegron [Myrbetriq] 50 mg PO DAILY 03/21/19 Omeprazole 20 mg PO DAILY 03/21/19 busPIRone [Buspar] 5 mg PO BID 03/21/19 Ferrous Sulfate 325 mg PO BID #60 tab 03/24/19 Following Prescrptions Were Given to Patient: Ferrous Sulfate 325 mg PO BID #60 tab Transmission Status: Received by [facility]/pharmacy #[id number] Primary Care Physician: Chaparrita Albrecht DO [Primary Care Provider] - Please follow up with your Primary Care Physician in: Tuesday03/26/19 Please Follow Up With: Jennyfer Bagley MD When: 03/26/19Tuesday Patient Instructions: Acute Kidney Failure, Hyperkalemia, Eating a Low Potassium Diet Disposition: Home Minutes spent on discharge:: 40 Patient Condition:: Stable Medical Necessity - Tobacco Use Smoking Status: Former smoker Tobacco Use: Cigarettes Meaningful Use Info Meaningful Use Diagnoses (Choose all that apply): None applicable Code Visit Inpatient E&M: 63621 Disch Hosp
[2019-03-24 11:01] LABS: Ferritin 81 ng/mL (8-252); Iron 33 ug/dL (50-170); Iron Binding Capacity,Total 182 ug/dL (250-450); PERCENT IRON SATURATION 18.1 % (15.0-55.0)
== END 2019-03-24 11:08 | disposition home or self-care (01) | DRG 641 ==
LOC: ED 18:24 → PCU 19:52
PROVIDERS: Admitting Provider Hospitalist; Emergency Provider Emergency Medicine; Family Provider Internal Medicine; PCP Internal Medicine; Referring Provider Hospitalist; Visit Provider Student in an Organized Health Care Education/Training Program
DX: E87.5 Hyperkalemia (principal); N17.9 Acute kidney failure, unspecified; N18.4 Chronic kidney disease, stage 4 (severe); L71.9 Rosacea, unspecified; D32.9 Benign neoplasm of meninges, unspecified; R39.15 Urgency of urination; Z66 Do not resuscitate; D64.9 Anemia, unspecified; I10 Essential (primary) hypertension; Z87.891 Personal history of nicotine dependence; Z79.4 Long term (current) use of insulin; I12.9 Hypertensive chronic kidney disease with stage 1 through stage 4 chronic kidney disease, or unspecified chronic kidney disease; E11.22 Type 2 diabetes mellitus with diabetic chronic kidney disease
CPT/HCPCS: 36415; 76770; 80048; 80069; 80158; 81001; 82274; 82306; 82550; 82728; 82962; 83540; 83550; 83605; 84443; 84484; 85025; 93005; 94640; 97116; 97162; 97166; 97530; 97802; 99251; 99284; J7030; A4216; G0463

== ENCOUNTER 2019-03-25 10:34 | Emergency (ER) | payer MEDICARE, OTHER, SELFPAY ==
[2019-03-21 20:41] VITALS: BMI 30.2
[2019-03-25 10:35] VITALS: BP 124/107; PULSE 81; RESP 18
[2019-03-25 10:37] VITALS: BP 138/60; PULSE 81; RESP 18; TEMP 35.2; O2SAT 97; BMI 32.5
[2019-03-25 11:00] LABS: Bedside Glucose 82 mg/dL (70-110)
--- NOTE | 2019-03-25 11:18 | ED.VISSUMM ---
- ER Visit Summary Date of Service: 03/25/19 Chief Complaint: Hypoglycemia History of Present Illness: The patient is a 79 F who presents with a hypoglycemic episode that occurred today. Patient was recently hospitalized and was on 20 units of Levemir while she was in the hospital. Patient was discharged from the hospital and did not eat as many carbohydrates at home. Patient took her normal dose of Levemir and her blood sugar went down to 55. Patient fell to the floor. EMS administered oral glucose and the patient is feeling better. Patient currently complains of chills. Patient's daughter is Dr. Singh who checked her out while she was at home and does not feel the patient has any fractures from her fall. She is concerned that the patient was laying on the floor and may have rhabdomyolysis. Physical Examination: Vital signs are stable. Patient is afebrile. Patient is in no acute distress. Oral mucosa is pink and moist. Neck is supple. Heart was regular rate and rhythm. Lungs are clear and equal bilaterally. Abdomen is soft and nontender. Cranial nerves II through XII are intact. There are no focal motor or sensory deficits noted. Extremities are intact. There is symmetric edema of the lower extremities which is chronic. Test Results: CBC shows a hemoglobin of 10.7 and hematocrit 33.3. This is improved compared to previous results. Basic metabolic profile shows creatinine of 2.36 and a BUN of 46. These were also improved from previous results. Total CK was 100. BGT was 88. Emergency Department Course and Treatment: Patient was feeling better on reevaluation. Patient does not want anything to eat at the present time. Patient was instructed to go home and eat. Patient was instructed to follow-up with her primary care physician as scheduled. Patient and family understood and were agreeable with the plan. All questions were answered. Disposition: Discharge home Impression: Hypoglycemia This note was generated with [employer] dictation software. It may contain incorrect words, spelling, and punctuation that were not noted in review of the chart prior to signing ED Disposition - Plan for ED Patient: Disposition: Home or Assisted Living Diagnosis: Hypoglycemia Instructions: Diabetic Insulin Reaction Referrals: Fast,Chaparrita, DO [Primary Care Provider] - Keep Irene appointment
[2019-03-25 11:41] LABS: Absolute Lymphocyte Count 1.23 X10^3/uL (0.83-4.51); Absolute Neutrophil Count 6.6 X10^3/uL (2.0-7.7); Basophil# 0.03 X10^3/uL; Basophil% 0.3 % (0-1); Eosinophil# 0.27 X10^3/uL; Eosinophils% 3.1 % (0-5); Hemoglobin 10.7 g/dL (12.0-15.0); Lymphocyte # 1.23 X10^3/ul (4.0); Lymphocyte % 14.1 % (19-41); Mean Corp Hgb Conc 32.4 g/dL (32-36); Mean Corpuscular Volume 92.4 fL (81-99); Mean Platelet Vol. 11.5 fl (6.2-12.0); Monocyte# 0.56 X10^3/uL; Monocyte% 6.4 % (0-10); NRBC Flagged by Analyzer 0 % (0-5); Neutrophil # 6.58 X10^3/uL (2.7-7.7); Neutrophil % 75.2 % (47-70); Platelet Count 147 K/mm3 (150-450); RBC Distribution Width CV 13.8 % (11.6-14.6); RBC Distribution Width SD 46.7 fl (35.1-43.9); Red Blood Count 3.57 M/mm3 (4.2-5.4); White Blood Count 8.8 K/mm3 (4.4-11.0)
[2019-03-25 11:56] LABS: Anion Gap 7 (5-15); BUN 46 mg/dL (7-18); BUN/Creat Ratio 19.5 RATIO (10-20); CPK Total, Creatine Kinase 100 U/L (26-192); Chloride 116 mmol/L (98-107); Creatinine, Serum 2.36 mg/dL (0.55-1.02); EST Glomerular Filtration Rate 21 mL/min (>60); Est Glom Filt Rate - Afr Amer 25 mL/min (>60); Estimated Creatinine Clearance 15.47 ml/min; Glucose 85 mg/dL (74-106); Potassium 4.3 mmol/L (3.5-5.1); Sodium Level 143 mmol/L (136-145)
[2019-03-25 12:15] VITALS: TEMP 36.4
[2019-03-25 12:56] VITALS: BP 117/88; PULSE 88; RESP 17
[2019-03-25 13:04] VITALS: BP 117/88
== END 2019-03-25 13:05 | disposition home or self-care (01) ==
PROVIDERS: Emergency Provider Emergency Medicine; Family Provider Internal Medicine; PCP Internal Medicine
DX: E11.649 Type 2 diabetes mellitus with hypoglycemia without coma (principal); T38.3X5A Adverse effect of insulin and oral hypoglycemic [antidiabetic] drugs, initial encounter; Z79.4 Long term (current) use of insulin; Y92.009 Unspecified place in unspecified non-institutional (private) residence as the place of occurrence of the external cause; I10 Essential (primary) hypertension; Z79.82 Long term (current) use of aspirin; Z79.899 Other long term (current) drug therapy
CPT/HCPCS: 80048; 82550; 82962; 85025; 99285

== ENCOUNTER → 2019-03-26 15:39 | Outpatient (CLI) | payer MEDICARE, OTHER, SELFPAY ==
[2019-03-25 10:37] VITALS: BMI 32.5
[2019-03-26 15:52] LABS: Absolute Lymphocyte Count 0.88 X10^3/uL (0.83-4.51); Absolute Neutrophil Count 5.5 X10^3/uL (2.0-7.7); Basophil# 0.03 X10^3/uL; Basophil% 0.4 % (0-1); Eosinophil# 0.08 X10^3/uL; Eosinophils% 1.1 % (0-5); Hematocrit 29.6 % (37-47); Hemoglobin 9.5 g/dL (12.0-15.0); Lymphocyte # 0.88 X10^3/ul (4.0); Mean Corp Hgb Conc 32.1 g/dL (32-36); Mean Corpuscular Hgb 29.8 pg (27.0-32.0); Mean Corpuscular Volume 92.8 fL (81-99); Mean Platelet Vol. 11.9 fl (6.2-12.0); Monocyte# 0.76 X10^3/uL; Monocyte% 10.4 % (0-10); NRBC Flagged by Analyzer 0 % (0-5); Neutrophil % 75.3 % (47-70); Platelet Count 146 K/mm3 (150-450); RBC Distribution Width SD 47.3 fl (35.1-43.9); Red Blood Count 3.19 M/mm3 (4.2-5.4); White Blood Count 7.3 K/mm3 (4.4-11.0)
[2019-03-26 16:39] LABS: ALB/GLOB Ratio 0.8 RATIO (0.9-2.4); AST(SGOT) 28 U/L (15-37); Alanine Aminotransfer ALT/SGPT 25 U/L (13-56); Alkaline Phosphatase 90 U/L (45-117); Anion Gap 8 (5-15); BUN 44 mg/dL (7-18); BUN/Creat Ratio 16.4 RATIO (10-20); Calcium,Total 7.5 mg/dL (8.5-10.1); Chloride 109 mmol/L (98-107); Creatinine, Serum 2.69 mg/dL (0.55-1.02); EST Glomerular Filtration Rate 18 mL/min (>60); Est Glom Filt Rate - Afr Amer 22 mL/min (>60); Globulin 2.6 g/dL (2.2-4.2); Glucose 150 mg/dL (74-106); Potassium 4.3 mmol/L (3.5-5.1); Protein, Total 4.6 g/dL (6.4-8.2); Sodium Level 140 mmol/L (136-145)
== END ==
PROVIDERS: Family Provider Internal Medicine; PCP Internal Medicine; Referring Provider Internal Medicine; Visit Provider Internal Medicine
DX: N18.4 Chronic kidney disease, stage 4 (severe) (principal)
CPT/HCPCS: 80053; 85025

== ENCOUNTER → 2019-03-29 08:48 | Outpatient (CLI) | payer MEDICARE, OTHER, SELFPAY ==
[2019-03-25 10:37] VITALS: BMI 32.5
--- NOTE | 2019-03-29 08:50 | CDU_ITS ---
Reason For Study: Stenosis Rt. Velocities/BP Lt. Velocities/BP Prox CCA 63/18.6 cm/sec. Prox CCA 125.3/15.7 cm/sec. Mid CCA 49.9/22.6 cm/sec. Mid CCA 95.5/17 cm/sec. Dist CCA 57.8/21.3 cm/sec. Dist CCA 95.5/17 cm/sec. Prox ICA 61.7/20 cm/sec. Prox ICA 95.5/22.5 cm/sec. Mid ICA 57.8/20 cm/sec. Mid ICA 132.1/27.9 cm/sec. Dist ICA 83.9/39.5 cm/sec. Dist ICA 154/29.8 cm/sec. Rt. ICA/CCA = 1.5. Lt. ICA/CCA = 1.6. Prox ECA 52.5/10.8 cm/sec. Prox ECA 88.2/11.5 cm/sec. Lt Vert, Prox, 174.3/31.9 cm/sec. Lt Vert, Mid, 113.8/22.5 cm/sec. Right Extracranial There is heterogeneous, irregular atherosclerotic plaque noted in the right common carotid artery. There is homogeneous, smooth atherosclerotic plaque noted in the right internal carotid artery. There is intimal thickening but no significant atherosclerotic plaque noted in the right external carotid artery. Bidirectional flow is noted in the right vertebral artery. Left Extracranial There is homogeneous, smooth atherosclerotic plaque noted in the left common carotid artery. There is heterogeneous, irregular atherosclerotic plaque noted in the left internal carotid artery. There is intimal thickening but no significant atherosclerotic plaque noted in the left external carotid artery. Antegrade flow is noted in the left vertebral artery. Procedure Carotid Duplex [id number]. Exam performed in department. Interpretation Summary Mild (<50%) stenosis right extracranial internal carotid. Moderate (50-69%) stenosis left extracranial internal carotid. Flow within the right verterbral artery is bidirectional, consistent with a subclavian steal phenomenon. Flow within the left verterbral artery is antegrade. Ordering Physician: Chaparrita Albrecht Referring Physician: Chaparrita Albrecht Performed By: Nazanin Guerrero RVT
--- NOTE | 2019-03-29 09:31 | BI_ITS ---
MAMMOGRAPHY - BILATERAL SCREENING 3-D TOMOSYNTHESIS REASON FOR EXAM: Female, 79 years old. Routine annual screening mammogram. PERTINENT HISTORY: No significant family history. TECHNIQUE: 2-D mammograms and 3-D Tomosynthesis of the breast (s) were performed. CAD was performed. COMPARISON: December 06, 2017, November 02, 2016 FINDINGS: The breast composition is almost entirely fat. Scattered benign calcifications are seen. No dense spiculated masses or suspicious microcalcifications are identified. No architectural distortion is identified. There is no skin thickening or retraction. There has been no significant change since the prior study. BI/SCREEN MAMM (CAD) W/STAS BILAT IMPRESSION: No mammographic signs of malignancy. Routine yearly mammograms recommended. ASSESSMENT CATEGORY: BIRADS Category 2: Benign. A letter regarding these results will be sent to the patient by the facility within 30 days. FOLLOW UP RECOMMENDATION: Yearly follow up mammogram recommended. (A) Approximately 10% of breast cancers are not detected by mammography. A normal mammogram should not delay biopsy of a clinically suspicious abnormality. Electronically Signed: Edwar Patino MD at 15:18 EST , Service support ,
--- NOTE | 2019-03-29 09:33 | US_ITS ---
STUDY: ULTRASOUND OF THE FEMALE PELVIS - COMPLETE REASON FOR EXAM: Female, 79 years old. Postmenopausal, evaluate forpelvic mass TECHNIQUE: Transabdominal and Transvaginal TECHNICAL QUALITY: Adequate. COMPARISON: 03/22/2019 FINDINGS: The uterus is anteverted and is in a midline position. The uterus measures 2.6 x 2.9 x 2 point cm. Normal uterine cervix. The endometrium measures 2.8 mm in thickness, and is hypoechoic. The ovaries are not visualized. There is no fluid in the cul-de-sac. The pre void volume of the bladder was 55.4 ml. There is a suggestion of debris or internal echogenicities within the left side of the bladder. There is a focus of free fluid within the right adnexa. Polycystic ovary disease: No. US/Pelvic (Non ) IMPRESSION: Limited study. Right lower quadrant and left lower quadrant free fluid. Recommend correlation with history this may related to inflammatory change and/or ascites. The cystic area seen in the left adnexa on the prior study March 22, 2019 is not well seen on today''s study. Recommend follow-up CT scan of the abdomen and pelvis. There is monitor images there may be echogenicity within the bladder which could represent debris which can be associated with cystitis. Uterus appears of normal size for patient''s age. The ovaries are not visualized. Electronically Signed: Portia Acuña MD at 9:42 EST Tel , Service support ,
== END ==
PROVIDERS: Family Provider Internal Medicine; PCP Internal Medicine; Referring Provider Internal Medicine; Visit Provider Internal Medicine
DX: Z12.31 Encounter for screening mammogram for malignant neoplasm of breast (principal); Z78.0 Asymptomatic menopausal state; I65.23 Occlusion and stenosis of bilateral carotid arteries; N94.89 Other specified conditions associated with female genital organs and menstrual cycle; R10.32 Left lower quadrant pain
CPT/HCPCS: 76856; 77063; 77067; 93880

== ENCOUNTER → 2019-04-02 15:17 | Outpatient (CLI) | payer MEDICARE, OTHER, SELFPAY ==
[2019-03-25 10:37] VITALS: BMI 32.5
[2019-04-02 16:45] LABS: D-Dimer Quantitative (DVT/PE) 3.56 FEU/ug/m (0.27-0.49)
[2019-04-02 17:58] LABS: Anion Gap 7 (5-15); BUN 32 mg/dL (7-18); BUN/Creat Ratio 13.6 RATIO (10-20); Chloride 113 mmol/L (98-107); Creatinine, Serum 2.36 mg/dL (0.55-1.02); EST Glomerular Filtration Rate 21 mL/min (>60); Est Glom Filt Rate - Afr Amer 25 mL/min (>60); Glucose 301 mg/dL (74-106); Potassium 4.1 mmol/L (3.5-5.1); Sodium Level 143 mmol/L (136-145)
[2019-04-02 18:14] LABS: Protein:Creat Ratio 14488 mg/g CRE (0-200)
== END ==
PROVIDERS: Family Provider Internal Medicine; PCP Internal Medicine; Referring Provider Internal Medicine Nephrology; Visit Provider Internal Medicine Nephrology
DX: N05.1 Unspecified nephritic syndrome with focal and segmental glomerular lesions (principal); R06.02 Shortness of breath
CPT/HCPCS: 36415; 80048; 82570; 84156; 85379

== ENCOUNTER → 2019-04-03 10:48 | Outpatient (CLI) | payer MEDICARE, OTHER, SELFPAY ==
[2019-03-25 10:37] VITALS: BMI 32.5
--- NOTE | 2019-04-03 10:56 | VDLE_ITS ---
Reason For Study: SOB RIGHT LEFT GSV is normal. GSV is normal. CFV is compressible, spontaneous, phasic, CFV is compressible, spontaneous, phasic, competent and demonstrates normal competent, and demonstrates normal augmentation. augmentation. FV is compressible, spontaneous, phasic, FV is compressible, spontaneous, phasic, competent and demonstrates normal competent and demonstrates normal augmentation. augmentation. POP V is compressible, spontaneous, phasic, POP V is compressible, spontaneous, phasic, competent and demonstrates normal competent and demonstrates normal augmentation. augmentation. T/P Trunk is compressible. T/P Trunk is compressible. PTV is compressible. PTV is compressible. RT PerV is compressible. LT PerV is compressible. Procedure Exam performed in department. A preliminary report was called and/or faxed to [facility]. Interpretation Summary Deep veins of the lower extremities are bilaterally patent and compressible segmentally. There is no evidence of deep vein thrombosis on either side. Valvular competence appears intact within the proximal deep venous systems bilaterally. The great saphenous veins appear bilaterally patent and compressible segmentally. Ordering Physician: Chaparrita Albrecht Referring Physician: Chaparrita Albrecht Performed By: Nazanin Guerrero RVT
--- NOTE | 2019-04-03 11:32 | NM_ITS ---
CLINICAL: 79-year-old female with reported history of shortness of breath and elevation of the d-dimer, technologist related negative lower extremity venous Doppler results 04/03/2019 VENTILATION-PERFUSION LUNG SCINTIGRAPHY COMPARISON: Plain film chest radiograph 04/03/2019 FINDINGS: The patient was administered 50.0 mCi 99m Tc DTPA aerosol. The aerosol ventilation study demonstrates heterogeneous ventilation in the bilateral lung hay without corresponding radiographic changes visualized on review of plain film chest x-ray dated 04/03/2019. Central clumping of the aerosol is identified in the bilateral hemithorax. Following the intravenous administration of 5.7 mCi of 99m Tc MAA, the pulmonary perfusion study reveals matching non-uniform perfusion in the right and left lungs of less significant severity than the previously defined ventilation pattern. No moderate subsegmental or large segmental ventilation-perfusion mismatches are noted. There are regions of retained normal perfusion visualized. NM/Lung Scan Vent/Perf IMPRESSION: 1. VERY LOW PROBABILITY FOR PULMONARY EMBOLUS (<10%) 99m Tc DTPA aerosol ventilation / 99m Tc MAA pulmonary perfusion imaging examination, according to PIOPED II interpretive criteria with regard given to the presence of > 2 ventilation-perfusion matches without corresponding radiographic changes. (Sotsman et al, Radiology 246: 941, 2008 Sotsman et al, J Nucl Med 49: 1741, 2008). 2. Central clumping of the aerosol may be secondary to obstructive airway mechanics and or clinical tachypnea. Electronically Signed: Ankur Adams DO at 13:49 EST Tel , Service support ,
--- NOTE | 2019-04-03 11:49 | RAD_ITS ---
STUDY: X-RAY CHEST REASON FOR EXAM: Female, 79 years old. SOB STARTED A WEEK AGO. SAYS SHE IS WEAK. TECHNIQUE: PA and lateral views of the chest. COMPARISON: 05/05/2017 FINDINGS: Blunting of the right costophrenic angle and obscuration of the lateral right hemidiaphragm new since the prior study. There is no demonstrated pleural abnormality. Normal size heart. Normal mediastinum and laurence. Normal visualized pulmonary arteries. Normal visualized aortic arch and descending thoracic aorta. There are diffuse degenerative changes of the visualized thoracic spine. Operative hardware in the lumbar spine partially visualized. There is no demonstrated abnormality of the visualized soft tissue structures of the upper abdomen. RAD/Chest PA and Lateral IMPRESSION: Small right pleural effusion with possible underlying infiltrate, new since prior study. Electronically Signed: Mikel Marte MD ([place]) at 16:24 EST , Service support ,
== END ==
PROVIDERS: Family Provider Internal Medicine; PCP Internal Medicine; Referring Provider Internal Medicine; Visit Provider Internal Medicine
DX: R06.02 Shortness of breath (principal); R79.89 Other specified abnormal findings of blood chemistry
CPT/HCPCS: 71046; 78582; 93970; A9540; A9567

== ENCOUNTER → 2019-04-09 15:08 | Outpatient (CLI) | payer MEDICARE, OTHER, SELFPAY ==
[2019-03-25 10:37] VITALS: BMI 32.5
--- NOTE | 2019-04-09 15:10 | RAD_ITS ---
STUDY: X-RAY CHEST REASON FOR EXAM: Female, 79 years old. SOB STARTED A WEEK AGO. SAYS SHE IS WEAK. TECHNIQUE: PA and lateral views of the chest. COMPARISON: April 03, 2019 FINDINGS: No change in small right lower lobe pleural effusion. Some minor interstitial scarring is present bilaterally. No acute lung abnormality is seen. Normal size heart. Stable visualized mediastinal and osseous structures. Lumbar spine hardware reidentified. RAD/Chest PA and Lateral IMPRESSION: Small right lower lobe pleural effusion. Electronically Signed: Henrry Palmer MD at 12:35 EST , Service support ,
== END ==
PROVIDERS: Family Provider Internal Medicine; PCP Internal Medicine; Referring Provider Internal Medicine; Visit Provider Internal Medicine
DX: J90 Pleural effusion, not elsewhere classified (principal)
CPT/HCPCS: 71046

== ENCOUNTER 2019-05-02 13:30 | Outpatient (RCR) | payer MEDICARE, OTHER, SELFPAY ==
--- NOTE | 2019-04-10 10:56 | HP.PTEVAL ---
Patient's Visit Information CLARENCE ALBERT is a 79 year old F referred to Physical Therapy by Chaparrita Albrecht DO with a diagnosis of steroid myopathy.. Date of Evaluation: 04/10/19 Physical Therapist: Tawanda Rae, THANHT, OCS, CSCS - Visit Plan Frequency: 3x /Week Duration: 4-6 Weeks Plan: 3x/week for 4-6 weeks for... 1. strength LE and progress HEP. 2. Gait in therapy without AD and balance work during this acitvity. 3. Steps. 4. Transfer on and off floor to tolerance. Conscious of myopathy weakness and per tolerance of body. 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 Laid on floor adn could not move. Was taken off the steroids. Was in hospital two times over the last couple months with multiple medical issues. Now she is just SO WEAK! Has boyfriend adn could not step up one step, has progressed to be able to do that. Does Quad set and trying to lift leg at home. Lives alone but daughter is staying with her now. No steps except one to get in. Uses wh walker to get around. Uses cane at times for short distances. Sometimes walk around house without AD. Needs to be very careful. Wears support hose all the time even sleeping. Feels weak. Spends day playing [employer], [employer]. Has boyfriend and she actually cooked a meal for him. Able to shower adn bathe and cook but slow and tiring. Likes to have someone around. Outside of the weakness, she is talking about needing dialysis, she has fluid on her lungs. Balance is not great, has to be cautious. Fell about a month ago tripping. Not dizzy. Has DM and hurts in legs at times, possible neuropathy. Wants to be able to get out of bathtub. - Objective Walks with wh walker too ow and hunched over, better when I raise it two notches. Mod I with wh walker but has to be careful at surface changes with rugs. Stand balance is fair but scared and hesitant to do too much while moving without holding on. Transfers out of chair and bed mod I with UE. Steps(2 today) are reciprocal and needs two railings and is weak to push up the step but can get her bodyweight up. UE AROM limited due to shoulder pain but functional. LE AROM WFL but slow contractions and weak. 3+/5 at ankles, 4- at knees and 3+ at hips. Sensation LE WNL to gross light touch today. coordination to reciprocal toe roque and heel tap is fair. reflexes 0/3 patella and achilles. HS and quads and ITB mod tight today. Pt feels tired after evaluation but did not have any obvious shortness of breath today. B Legs slightly swollen L >R and stockings on today. - Balance Scores Functional Gait Assessment Score: 15 % Disability: 50.0000 CATSIB Score (Max score 120 seconds): 75 - Goals Goal 1:: Patient feel 90% back to pre myopathy levels of function Goal Time Frame: 4-6 Weeks Goal 2:: Pt score 22/30 on FGA to show improved balance and safety adn reduce fallr isk. Goal Time Frame: 4-6 Weeks Goal 3:: Ascend and descend steps with one rail reciprocally without fatigue Goal Time Frame: 4-6 Weeks Goal 4:: Patient able to transfer onto and off floor to mimic tub mod I with UE support. Goal Time Frame: 4-6 Weeks - Rehabilitation Potential Physical Therapy Diagnosis: Weakness and poor confidence in mobility after rrecent bout with myopathy. Rehabilitation Potential: Fair - Anticipated Interventions Patient/Client Instruction: Educate patient on: Condition, Plan of Care For the Purpose of:: To improve muscle performance and motor function, To increase tolerance to activity/condition/position, To improve ability of physical actions for home/community/work/leisure Therapeutic Exercise to Include: Strength training, Balance training, Postural training, Gait and locomotor training Comment: transfer training. For the Purpose of:: To improve muscle performance and motor function, To increase tolerance to activity/condition/position, To improve ability of physical actions for home/community/work/leisure, To improve gait and locomotor functions Thank you for the opportunity to evaluate your patient. For Medicare and Medicare HMO plans, please review the plan of care and approve it. It will need to be FAXED BACK to us at [phone] for Medicare purposes. For Medicare only, by signing this I certify the plan of care. Please let me know if there are questions or concerns regarding this plan of care. Physician Signature: Date:
--- NOTE | 2019-05-02 14:26 | HP.PTDCSUM ---
HP - PT D/C Summary It has been my pleasure to treat CLARENCE ALBERT under orders from Chaparrita Albrecht DO, for the diagnosis of steroid myopathy. for a total of 9 visit(s). Discharge Date: 05/02/19 Please see the following information for a summary of their discharge status. - Subjective Subjective: Fabulous. Feels back to normal almost 80%. Not sure if she can get off the foor. Uses cane out adn about. Cautious but can do well from here on out. Has home exercises at counter that she can do. - Pain LB Pain Intensity (Out of 10): 5 - Overall Improvement % Improvement: 80 - Objective Objective/Function: Out of chair with one UE trasnferring I. Walks with wide ARMANDO adn short steps without AD until cued, Does well with cane. FGa is significantly better today. Trasnferred onto and off floor with support(as in tub trasfer) mod I today and fairly easy. Steps reciprocal with one rail showing some weakness in hips but no assist needed. - Goals Goal 1:: Patient feel 90% back to pre myopathy levels of function Goal Progress: Progressing Goal 2:: Pt score 22/30 on FGA to show improved balance and safety adn reduce fallr isk. Goal Progress: Goal Met Goal 3:: Ascend and descend steps with one rail reciprocally without fatigue Goal Progress: Goal Met Goal 4:: Patient able to transfer onto and off floor to mimic tub mod I with UE support. Goal Progress: Goal Met - Plan Plan: d/c, pt to keep up HEP and stay active. - D/C Information If there are questions or concerns regarding this patient's physical therapy, please feel free to call me at [phone]. Thank you for the referral of this patient. Sincerely, Tawanda Rae, DPT, OCS, CSCS
== END 2019-05-02 19:00 | disposition home or self-care (01) ==
LOC: PT 13:30
PROVIDERS: Family Provider Internal Medicine; PCP Internal Medicine; Referring Provider Internal Medicine; Visit Provider Internal Medicine
DX: G72.0 Drug-induced myopathy (principal); T38.0X5D Adverse effect of glucocorticoids and synthetic analogues, subsequent encounter
CPT/HCPCS: 97110; 97162; 97530

== ENCOUNTER → 2019-05-29 14:56 | Outpatient (CLI) | payer MEDICARE, OTHER, SELFPAY ==
--- NOTE | 2019-05-29 15:05 | BD_ITS ---
STUDY: DUAL ENERGY X-RAY ABSORPTIOMETRY / DXA REASON FOR EXAM: Female, 79 years old. Age of espinoza- 46. Pat is 150# and 63 and quot; a loss of 2.5 and quot; per patient. Past hx of smoking, past use of a diuretic. Past hx of taking a bone building med but cannot remember name. Pat is a type II diabetic and takes Publicity, in the past has used Byetta. Takes Prednisone prn. Takes 500mg calcium and a multi-vit. Hx of a lumbar fusion. TECHNIQUE: Bone Mineral Density (BMD) measurements of lumbar spine and bilateral hips were obtained. COMPARISON: Comparison is made with prior examination dated November 02, 2016. FINDINGS: Lumbar Spine (L1-L4): g/cm2 (0.897) / T-score (-2.5) / Z-score (-0.7) Findings are suggestive of osteoporosis with a high fracture risk. Left Femur Total: g/cm2 (0.877) / T-score (-1.0) / Z-score (1.0) Left Femoral Neck: g/cm2 (0.854) / T-score (-1.3) / Z-score (0.9) Right Femur Total: g/cm2 (0.845) / T-score (-1.3) / Z-score (0.8) Right Femoral Neck: g/cm2 (0.844) / T-score (-1.4) / Z-score (0.8) The T-Scores on the most recent prior examination were: Lumbar Spine (L1-L4): There has been worsening of bone density since the previous examination. Left Femur Total: which represents a worsening of 0.2%. Right Femur Total: which represents a worsening of 7.2%. BD/Dexa Bone Density Study IMPRESSION: The patient is considered osteoporotic as outlined below according to World Jacob Organization (WHO) criteria with a high fracture risk. There has been worsening of bone density since the previous examination. Reference Information: The T-score is the number of standard deviations above or below the standard which is normal for young adults at their peak bone mineral density. The World Health Organization (WHO) interprets the T-scores as follows: Above -1 Normal bone density Between -1 and -2.5 Osteopenia Equal to / or below -2.5 Osteoporosis As a practical clinical guideline, osteopenia may be graded as follows: Mild -1 through -1.5 Moderate -1.6 through -2.0 Severe -2.1 through -2.4 The Z-score is the number of standard deviations above or below age-matched controls. A Z-score of less than -1.5 would be considered abnormal. References: 1. NIH Osteoporosis and Related Bone Diseases http://www.osteo.org 2. International Society for Clinical Densitometry http://www.iscd.org 3. National Osteoporosis Foundation http://www.nof.org Electronically Signed: Misael Winters, at 13:48 EST , Service support ,
== END ==
PROVIDERS: Family Provider Internal Medicine; PCP Internal Medicine; Referring Provider Internal Medicine; Visit Provider Internal Medicine
DX: Z78.0 Asymptomatic menopausal state (principal)
CPT/HCPCS: 77080

== ENCOUNTER → 2019-09-08 16:16 | Outpatient (CLI) | payer MEDICARE, OTHER, SELFPAY ==
[2019-09-08 16:53] LABS: Red Blood Cells-Urine 0 SEEN /hpf (0-5)
[2019-09-08 16:55] LABS: Absolute Lymphocyte Count 0.71 X10^3/uL (0.83-4.51); Absolute Neutrophil Count 4.9 X10^3/uL (2.0-7.7); Basophil# 0.06 X10^3/uL; Basophil% 0.9 % (0-1); Eosinophil# 0.09 X10^3/uL; Eosinophils% 1.4 % (0-5); Hematocrit 33.2 % (37-47); Hemoglobin 10.3 g/dL (12.0-15.0); Lymphocyte # 0.71 X10^3/ul (4.0); Lymphocyte % 11.2 % (19-41); Mean Corpuscular Hgb 28.5 pg (27.0-32.0); Mean Platelet Vol. 11.9 fl (6.2-12.0); Monocyte% 9.4 % (0-10); NRBC Flagged by Analyzer 0 % (0-5); Neutrophil # 4.88 X10^3/uL (2.7-7.7); Neutrophil % 76.8 % (47-70); Platelet Count 210 K/mm3 (150-450); RBC Distribution Width SD 50.4 fl (35.1-43.9); Red Blood Count 3.61 M/mm3 (4.2-5.4); White Blood Count 6.4 K/mm3 (4.4-11.0)
[2019-09-08 17:03] LABS: Color, Urine Yellow (Yellow); Glucose, Dipstick 50 mg/dl (Normal); Ketone-Dipstick Negative (Negative); Leukocyte Esterase-Dipstick 100 /ul (Negative); Nitrite-Dipstick Negative (Negative); Occult Blood-Urine 10 /ul (Negative); Protein-Dipstick 500 mg/dl (Negative); Specific Gravity, Urine 1.015 (1.002-1.030); Urine Bilirubin Dipstick Negative (Negative); Urine Clarity Sl. Cloudy (Clear); Urine Urobilinogen Normal (Normal)
[2019-09-08 17:16] LABS: ALB/GLOB Ratio 0.9 RATIO (0.9-2.4); AST(SGOT) 17 U/L (15-37); Alanine Aminotransfer ALT/SGPT 20 U/L (13-56); Alkaline Phosphatase 61 U/L (45-117); Anion Gap 7 (5-15); BUN 64 mg/dL (7-18); BUN/Creat Ratio 26.2 RATIO (10-20); Chloride 105 mmol/L (98-107); Creatinine, Serum 2.44 mg/dL (0.55-1.02); EST Glomerular Filtration Rate 20 mL/min (>60); Est Glom Filt Rate - Afr Amer 24 mL/min (>60); Globulin 3.2 g/dL (2.2-4.2); Glucose 132 mg/dL (74-106); Potassium 4.5 mmol/L (3.5-5.1); Protein, Total 6.2 g/dL (6.4-8.2); Sodium Level 140 mmol/L (136-145)
[2019-09-08 17:18] LABS: White Blood Cells 5-10 SEEN /hpf (0-5)
[2019-09-08 17:19] LABS: Squamous Epithelial Cells - UA 0-5 SEEN /hpf (5-10)
[2019-09-08 17:20] LABS: Bacteria RARE /hpf (None Seen); Mucous, Urine 1+ /hpf (<or=2+); Transitional Epithelial - Ur 0-5 SEEN /hpf (0-5)
[2019-09-12 11:37] LABS: Cyclosporine 174 ng/mL (100-400)
== END ==
PROVIDERS: PCP Internal Medicine; Referring Provider Internal Medicine; Visit Provider Internal Medicine
DX: N05.1 Unspecified nephritic syndrome with focal and segmental glomerular lesions (principal)
CPT/HCPCS: 36415; 80053; 80158; 81001; 82043; 82570; 85025

== ENCOUNTER → 2019-09-19 14:06 | Outpatient (CLI) | payer MEDICARE, OTHER, SELFPAY ==
--- NOTE | 2019-09-19 14:10 | RAD_ITS ---
STUDY: X-RAY CHEST REASON FOR EXAM: Female, 79 years old. Abnormal weight loss, diabetic TECHNIQUE: PA and lateral views of the chest. COMPARISON: Comparison is made with prior examination dated April 09, 2019. FINDINGS: The previously seen small right pleural effusion has resolved. Minimal residual blunting is seen in the right costophrenic angle. Focal density seen in the peripheral lateral aspect of the right upper lobe. Radiographic evidence density in the peripheral aspect of the right upper lobe. This may represent an early infiltrate. Radiographic follow-up is recommended. Normal size heart. Normal mediastinum and laurence. Normal visualized pulmonary arteries. Normal visualized aortic arch and descending thoracic aorta. There are diffuse degenerative changes of the visualized thoracic spine. Prior intraventricular screw and oleg fixation of the lumbar spine. Normal visualized ribs, clavicles, and shoulders. There is no demonstrated abnormality of the visualized soft tissue structures of the upper abdomen. RAD/Chest PA and Lateral IMPRESSION: Mild residual blunting of the right costophrenic angle. Irregular soft tissue density in the peripheral lateral aspect of the right upper lobe as described. Radiographic follow-up is recommended. Electronically Signed: Misael Winters, at 15:48 EDT , Service support ,
--- NOTE | 2019-09-19 14:15 | CT_ITS ---
STUDY: CT ABDOMEN AND PELVIS WITHOUT CONTRAST REASON FOR EXAM: Female, 79 years old. 38lb weight loss, no other complaints per patient. Hx dipika, petrona, kidney disease RADIATION DOSAGE (If Supplied By Facility): CTDIvol = ( 7.46 ) mGy, DLP = ( 360.40 ) mGycm TECHNIQUE: Transaxial images were obtained from the dome of the diaphragm to the symphysis pubis without oral contrast, and without intravenous contrast. Sagittal and coronal images were reconstructed. Individualized dose optimization techniques were used for this CT. COMPARISON: Comparison is made with prior study dated October 19, 2012. FINDINGS: The visualized lung bases are unremarkable. Coronary artery calcification. Stable scattered small hepatic cysts. The largest is in the medial aspect of the left hepatic lobe measuring 2.8 cm. The patient is status post cholecystectomy. Normal spleen. Normal pancreas. Normal bilateral adrenal glands. There is a 4.8 cm x 4.5 cm cyst in the lower pole of the right kidney. This has increased in size as compared to prior study. Stable cyst in the upper pole of the left kidney. Normal visualized stomach. Normal small intestine. There are multiple colonic diverticula consistent with diverticulosis. The patient is status post appendectomy. There is diffuse atherosclerotic calcification of the abdominal aorta and the major visceral vessels., without a demonstrated aneurysm. Normal inferior vena cava. Normal retroperitoneum. Normal urinary bladder. Calcified fibroid uterus. There is a 2.1 cm x 2.3 cm cyst in the left ovary. Normal abdominal wall. There are diffuse degenerative changes of the visualized lumbar spine. The patient is status post interpedicular screw fixation at the L3-L4 and L4-L5 levels. CT/Abdomen/Pelvis without Cont IMPRESSION: Hepatic cysts and renal cysts. 2.1 cm x 2.3 cm cyst in the left ovary. Electronically Signed: Misael Winters, at 14:53 EDT , Service support ,
== END ==
PROVIDERS: PCP Internal Medicine; Referring Provider Internal Medicine; Visit Provider Internal Medicine
DX: E11.9 Type 2 diabetes mellitus without complications (principal); R63.4 Abnormal weight loss
CPT/HCPCS: 71046; 74176

== ENCOUNTER → 2019-10-02 13:17 | Outpatient (CLI) | payer MEDICARE, OTHER, SELFPAY ==
--- NOTE | 2019-10-02 13:21 | CT_ITS ---
STUDY: CT CHEST WITHOUT CONTRAST REASON FOR EXAM: Female, 79 years old[address] ABN ABDOMEN [address] OF ABDOMEN. Hx of weight loss, lumbar surgery. Prev smoker. Diabetic-Januvia RADIATION DOSAGE (If Supplied By Facility): CTDIvol = ( 8.48 ) mGy, DLP = ( 278.18 ) mGycm TECHNIQUE: Transaxial imaging was performed without the administration of intravenous contrast material. Individualized dose optimization techniques were used for this CT. COMPARISON: 01/21/2011 FINDINGS: Mild emphysematous changes. 1.5 cm speculated noncalcified nodule peripherally the right upper lobe the lungs worrisome for bronchogenic carcinoma in correlation with PET CT scan is recommended. Follow-up CT the chest is recommended in 6 months document stability. Elevated right hemidiaphragm. Normal heart and pericardium. There are calcifications of the coronary arteries. Normal mediastinum. Normal hilar regions. Normal unenhanced pulmonary arteries. There is atherosclerotic calcification of the aortic arch with tortuosity and elongation of the aortic arch and descending thoracic aorta. Normal osseous structures. 2.5 cm cyst in the posterior aspect lateral segment left lobe of the liver. CT/Chest without Contrast IMPRESSION: Emphysema with a 1.5 cm thick related nodule in the periphery of the right upper lobe the lungs worrisome for bronchogenic carcinoma in correlation with PET CT scan is recommended. Follow-up CT the chest is recommended in 6 months document stability. Electronically Signed: Ankur Maddox MD at 14:03 EDT Tel , Service support ,
== END ==
PROVIDERS: PCP Internal Medicine; Referring Provider Internal Medicine; Visit Provider Internal Medicine
DX: R93.5 Abnormal findings on diagnostic imaging of other abdominal regions, including retroperitoneum (principal)
CPT/HCPCS: 71250

== ENCOUNTER → 2019-10-16 14:47 | Outpatient (CLI) | payer MEDICARE, OTHER, SELFPAY ==
--- NOTE | 2019-10-16 15:30 | PET_ITS ---
EXAMINATION: FDG PET CT INDICATIONS: An 79-year-old female with history of pulmonary nodularity. COMPARISON EXAMINATION: CT of the chest report dated 10/02/19. INDEX LESION SIZE SUV INTERPRETATION Right upper anterolateral lung-right upper lobe 18.8 mm (frame 171) 4.6 Fulfills quantitative criteria for viable neoplasm, histopathologic analysis recommended NON-INDEX LESION SIZE SUV INTERPRETATION Carinal level mediastinum 9.6 mm (frame 160) 2.5 Quantitative criteria for viable neoplasm are not fulfilled TECHNIQUE: Following the intravenous administration of 11.42 mCi of F-18 deoxyglucose via the left antecubital fossa, multiplanar image acquisitions of the neck, chest, abdomen and pelvis to level of mid thigh, obtained at one hour post radiopharmaceutical administration contemporaneously interpreted with the current CT of the neck, chest, abdomen and pelvis to level of mid thigh, dated 10/16/[address] of the chest report dated 10/02/19 reveal: SERUM GLUCOSE LEVEL: 118 mg/dl. HEIGHT: 63 inches. WEIGHT: 130 lbs. FINDINGS: 1. Focal increased glucose metabolism is defined in the right upper anterolateral lung-right upper lobe generating a calculated maximum standard uptake value of 4.6. The maximal axial diameter of the corresponding partially-cavitated density on review of CT of the chest dated 10/16/19 is 18.8 mm. 2. Facilitated FDG concentration is observed in the carinal level mediastinum to the right of the midline rendering a calculated maximum standard uptake value of 2.5. The maximal axial diameter of the corresponding soft tissue density on review of CT of the chest dated 10/16/19 is 9.6 mm (transverse). 3. Normal physiologic distribution of the radiopharmaceutical is apparent in the hepatic (2.8) and splenic parenchyma, both renal units, bladder and visualized intestinal tract. There is uniform distribution of the radiopharmaceutical concentration defined in the visualized cerebellar hemispheres and cerebral cortical structures. Diffuse intestinal tract activity is noted throughout all four quadrants of the abdominal-pelvic retroperitoneum and mesentery consistent with normal physiologic distribution of the radiopharmaceutical. Pertinent CT findings are as follows. CHEST: Atherosclerotic calcification is defined in the thoracic aorta without evidence of dilatation, aneurysm formation. Coronary arterial calcification is observed. Bilateral axillary subcentimeter soft tissue densities are ametabolic. There are no additional parenchymal densities-nodules defined in the right and left hemithorax with discernible increased FDG concentration. Ground-glass densities noted in the right upper and left upper lobes adjacent to the major fissures demonstrate no evidence of quantitatively significant-discernible increased radiopharmaceutical concentration. ABDOMEN AND PELVIS: Atherosclerotic calcification is defined in the abdominal aorta without evidence of dilatation, aneurysm formation. Abdominal-pelvic arterial calcification is demonstrated. Colonic diverticulosis is noted without evidence of diverticulitis. Apparent exophytic mass-cyst formation involving the inferior pole of the right kidney demonstrates no evidence of facilitated FDG uptake. Bilateral subcentimeter inguinal soft tissue densities with fatty hilus are non-glucose avid. SKELETAL: Degenerative changes defined in the cervical, thoracic and lumbar spine demonstrate no evidence of glucose hypermetabolism. Orthopedic hardware placement is noted in the lower lumbar spine. Diffuse demineralization is demonstrated. PET/PET/CT Tumor Base -Thigh Init IMPRESSION: 1. Increased FDG distribution defined in the right upper anterolateral lung-right upper lobe fulfills quantitative criteria for viable neoplasm. Histopathologic analysis is recommended. (Abbott et al, Annals of Internal Medicine, 138:724, 2003). 2. The mediastinal hypermetabolic abnormality does not fulfill quantitative criteria for malignant transformation. (VanSteenkiste et al, Journal of Clinical Oncology 16:2142, 1998). 3. Ground-glass densities noted in the bilateral upper lobes are non-glucose avid, as defined above. Electronic Signature Ankur Adams D.O. Accurate Quantification of SUVs for this report are calculated using the exclusive [employer]uqu[employer]? Technology. Exclusive [place] Patent [employer]? Technology ([place].S. Patent No. [id number] [id number]). Electronically Signed: Ankur Adams DO at 22:26 EDT Tel , Service support ,
== END ==
PROVIDERS: PCP Internal Medicine; Referring Provider Internal Medicine; Visit Provider Internal Medicine
DX: R91.8 Other nonspecific abnormal finding of lung field (principal)
CPT/HCPCS: 78815; A9552

== ENCOUNTER → 2020-04-02 16:00 | Outpatient (CLI) | payer MEDICARE, OTHER, SELFPAY ==
--- NOTE | 2020-04-02 16:08 | MRI_ITS ---
We are attempting to reach an attending provider to discuss findings. An addendum with communication details will be sent when the communication is complete. STUDY: MRI BRAIN WITHOUT CONTRAST REASON FOR EXAM: Female, 80 years old. TIA -- episode of confusion , hx meningioma TECHNIQUE: Standardized multiplanar fat and water weighted pulse sequences were obtained. COMPARISON: MRI of the brain 06/10/2017. FINDINGS: Mild atrophy and moderate periventricular white matter ischemic changes.. There is a mass in the right frontal lobe parasagittal distribution measuring approximately 1.65 x 1.5 cm consistent with known meningioma with associated gliosis or edema. There is a tiny focus of increased signal intensity in the deep white matter tracts in left frontal lobe and left parietal lobe on the diffusion weighted imaging sequence with associated low signal on the ADC map consistent with restricted diffusion and acute ischemic changes. Normal bilateral basal ganglia. Old right thalamic infarct is noted.. There is no extra-axial fluid accumulation. Normal flow voids within the major intracranial circulation suggesting patency by spin echo criteria. Normal sella turcica, pituitary gland, infundibular stalk, optic chiasm and hypothalamus. Normal tectal plate and pineal gland. Normal midbrain, klaus and medulla. Normal cerebellum. Normal basal cisterns. Normal bilateral temporal bones. Normal bilateral internal auditory canals. High signal intensity seen within the left mastoid air cells consistent with inflammatory disease and to lesser extent on the right. Postsurgical changes of the orbits. Normal visualized paranasal sinuses. Normal calvarium and skull base. Normal visualized soft tissue structures. Normal visualized upper cervical spine. Size of the lesion in the right frontal lobe is unchanged since previous exam. The deep white matter ischemic changes in left frontal and parietal lobe are new. MRI/Brain without Contrast IMPRESSION: Findings consistent with tiny foci of acute ischemic change in the left frontal and parietal lobes Moderate periventricular white matter ischemic changes and old right lacunar infarct. Mass in the right frontal lobe consistent with known meningioma unchanged in size since previous study Electronically Signed: David Wakefield MD at 17:12 EST , Service support ,
== END ==
PROVIDERS: PCP Internal Medicine; Referring Provider Nurse Practitioner; Visit Provider Nurse Practitioner
DX: R41.0 Disorientation, unspecified (principal)
CPT/HCPCS: 70551

== ENCOUNTER → 2020-04-07 12:44 | Outpatient (CLI) | payer MEDICARE, OTHER, SELFPAY ==
--- NOTE | 2020-04-07 12:48 | ECHOCS_ITS ---
Reason For Study: Stroke Procedure This was a 2D Doppler, Color Flow transthoracic echocardiogram. Contrast injection was performed. Exam performed in department. Left Ventricle Normal LV size. Left ventricular systolic function is normal. The estimated ejection fraction is 55 %. Stage 1 diastolic dysfunction. No regional wall motion abnormalities noted. Right Ventricle Normal RV size. Normal systolic function. Atria Normal left atrium. Normal right atrium. Mitral Valve There is mild to moderate mitral annular calcification. Mild (1+) eccentric mitral valve insufficiency. Tricuspid Valve Normal tricuspid valve. Mild tricuspid valve insufficiency. Pulmonary artery systolic pressure is 33 mmHg. Aortic Valve Trisinus/trileaflet aortic valve. Pulmonic Valve Normal pulmonic valve. Great Vessels Normal aortic root. The pulmonary artery is normal size. Normal inferior vena cava. Pericardium/Pleural No pericardial effusion. Medication Performed a rapid injection of agitated mix of 9 cc saline and 1cc air to assess for atrial septal defect. Diluted definity 3ml given slow IV push to enhance endocardial definition. MMode/2D Measurements & Calculations LVIDd: 4.6 cm IVSd: 0.92 cm Ao root diam: 2.6 cm LVIDs: 3.1 cm LVPWd: 1.1 cm RVDd: 3.0 cm FS: 33.0 % LAV(MOD-bp): 43.1 ml LVAd ap4: 30.2 cm2 SV(MOD-sp4): 54.3 ml LAV(MOD-bp) Indexed: 25.8 ml/m2 EDV(MOD-sp4): 96.6 ml LAV(MOD-sp2): 41.4 ml EDV(sp4-el): 100.4 ml LAV(MOD-sp4): 41.4 ml LVAs ap4: 17.9 cm2 ESV(MOD-sp4): 42.3 ml ESV(sp4-el): 43.4 ml EF(MOD-sp4): 56.2 % EF(sp4-el): 56.8 % SV(sp4-el): 57.0 ml LA A4 area: 15.5 cm2 LA dimension(2D): 4.2 cm RA A4 area: 10.3 cm2 Doppler Measurements & Calculations MV E max rickie: 67.2 cm/sec Lat Peak E' Rickie: 6.1 cm/sec Med Peak E' Rickie: 5.1 cm/sec MV A max rickie: 100.4 cm/sec E/E' lat: 11.1 E/E' med: 13.2 MV E/A: 0.67 Ao V2 max: 134.4 cm/sec LV V1 max: 94.4 cm/sec PA V2 max: 84.6 cm/sec Ao max P.2 mmHg LV V1 max P.6 mmHg Ao V2 mean: 92.5 cm/sec Ao mean P.7 mmHg Ao V2 VTI: 27.6 cm TR max rickie: 269.6 cm/sec TR max P.1 mmHg Interpretation Summary Normal LV size. Left ventricular systolic function is normal. The estimated ejection fraction is 55 %. Stage 1 diastolic dysfunction. Contrast injection was performed. Ordering Physician: Chaparrita Albrecht Referring Physician: Chaparrita Albrecht Performed By: Koki Clark RDCS, RVT
== END ==
PROVIDERS: PCP Internal Medicine; Referring Provider Internal Medicine; Visit Provider Internal Medicine
DX: Z86.73 Personal history of transient ischemic attack (TIA), and cerebral infarction without residual deficits (principal)
CPT/HCPCS: 93225; 93226; 93306; Q9957; A4216; C8929

== ENCOUNTER → 2020-04-29 09:49 | Outpatient (CLI) | payer MEDICARE, OTHER, SELFPAY ==
--- NOTE | 2020-04-29 10:04 | MRI_ITS ---
STUDY: MRA NECK WITHOUT CONTRAST REASON FOR EXAM: Female, 80 years old. RIGHT subclavian steel syndrome, Hx of stroke TECHNIQUE: Source images were obtained, MIPs were performed. The study was performed unenhanced. COMPARISON: Carotid ultrasound 03/29/2019 FINDINGS: RIGHT CAROTID ARTERIES: Normal right common carotid artery (CCA). Normal right common carotid bulb. Normal origin of the right internal carotid (ICA) artery without a hemodynamically significant stenosis. Normal visualized cervical portion of the right internal carotid artery. Normal origin of the right external carotid artery (ECA). LEFT CAROTID ARTERIES: Normal left common carotid artery (CCA). Normal left common carotid bulb. Normal origin of the left internal carotid (ICA) artery without a hemodynamically significant stenosis. Normal visualized cervical portion of the left internal carotid artery. Normal origin of the left external carotid artery (ECA). VERTEBRAL ARTERIES: Occluded right vertebral artery. MRI/MRA Neck without Contrast IMPRESSION: 1. No carotid stenosis. 2. Occluded right vertebral artery. 3. Patent left vertebral artery. Electronically Signed: Ankur Maddox MD at 11:27 EST Tel , Service support ,
== END ==
PROVIDERS: PCP Internal Medicine; Referring Provider Psychiatry & Neurology Neurology; Visit Provider Psychiatry & Neurology Neurology
DX: G45.8 Other transient cerebral ischemic attacks and related syndromes (principal)
CPT/HCPCS: 70547

== ENCOUNTER 2020-09-19 12:30 | Outpatient (RCR) | payer MEDICARE, OTHER, SELFPAY ==
[2020-05-07 12:44] VITALS: BMI 25.4
--- NOTE | 2020-06-17 14:31 | HP.PTEVAL_ITS ---
Patient's Visit Information CLARENCE ALBERT is a 80 year old F referred to Physical Therapy by Dr. Chaparrita Albrecht DO with a diagnosis of S/P CVA 03/28/20 - OTHER SYMPTOMS & SIGNS INVOLVING MUSCULOSKELETAL SYSTEMS. Date of Evaluation: 06/17/20 Physical Therapist: Nona Chan, PT, Cert MDT - Visit Plan Frequency: 2-3x /Week Duration: 4-6 Weeks Plan: GAIT TRAINING (PATIENT TO BRING HER CANE NEXT VISIT). BALANCE TRAINING. GENERAL STRENGTHEING AND CONDITIONING TOLERATED TAKING KNEE AND BACK PAIN INTO CONSIDERATION. - Subjective PATIENT REPORTS A FEW YEARS AGO SHE HAD R KNEE SURGERY AND THEN PHYSICAL THERAPY AND DEALING WITH HER KNEE SLOWED HER DOWN. PATIENT REPORTS SHE HAS LOST SO MUCH STRENGTH OVER THE WINTER SINCE HAVING A STROKE 03/28/21. PATIENT REPORTS HER DAUGHTER IS SO AFRAID SHE IS GOING TO FALL. STATES SHE HAS A CANE BUT DOESN'T FEEL MORE STEADY WITH IT THAN WITHOUT IT. SHE REPORTS SHE LIVES ALONE IN A CONDO WITH NO STEPS EXCEPT ONE STEP IN. STATES SHE HASN'T EXERCISED AT ALL IN A FEW WEEKS BUT FOR AWHILE SHE WAS GOING TO HER DAUGHTERS HOUSE TO EXERCISE. DID GO SHOPPING TUESDAY AT [facility] TO GET SOME EXERCISING WALKING WITH HER DAUGHTER. PAIN: HORRIBLE BACK PAIN, R KNEE PAIN. DECREASED PAIN WITH EXERCISE BUT SHE REPORTS THAT ACCESS TO A BIKE AND OTHER EXERCISE MACHINES IS AN ISSUE. PATIENT REPORTS SHE CAN'T THINK OF ANYTHING IN PARTICULAR THAT MAKES HER BACK OR KNEE PAIN WORSE. PATIENT REPORTS SHE IS ON BLOOD THINNER NOW AND SHE THINKS THEY DETERMINED SHE HAD A STROKE FROM SOME MEDICATION CHANGES. ATRIAL FIB HAS BEEN RULED OUT PER PATIENT REPORT. Symptoms at onset: DISORIENTATION. PATIENT REPORTS THAT OTHER THAN GENERAL WEAKNESS SHE FEELS LIKE SHE HAS FULLY RECOVERED FROM THE STROKE. PMH: HAS BEEN CLEARED OF ATRIAL FIB. STATES SHE WAS NOT ALLOWED TO START PT UNTIL THEY RULED IT OUT. LUNG CANCER TREATED WITH RADIATION AND IT IS NOT GROWING - IS STABLE - PER PATIENT REPORT. 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 Recent major surgery: LOW BACK SURGERY - ABOUT 10 YEARS AGO, L KNEE SX - ABOUT 6 YEARS AGO. OTHER: PATIENT REPORTS SHE LIVES ALONE AND IS DRIVING SHORT DISTANCES. - Objective Sitting/Standing Posture: POOR. INCREASED KYPHOSIS AND REDUCED LORDOSIS. Active Correction of posture: WORSE - INCREASES LBP. Other Observations: INDEP GAIT INTO PT WITH WIDE BASE OF SUPPORT AND DECRASED NA STRIDE LENGTH. NO LOB BUT QUICK STEPS. UNABLE TO BALANCE ON EITHER LE LONGER THAN A SECOND OR TWO WITHOUT UE ASSIST. THIS PT RECOMMENDED TO PATIENT THAT SHE BRING HER CANE NEXT VISIT FOR ASSESSMENT/TRAINING. PATIENT AGREEABLE. Motor deficit: NA LE WEAKNESS. HIPS 3+/5, KNEES 4-/5, ANKLES 4/5. Sensory deficit: HYPERSENSTIVITY IN LEGS NA. ROM deficit: NA LE HIP FLEXOR, HAMSTRING AND GASTROC SOLEUS COMPLEX TIGHTNESS. Reflexes: UNABLE TO ELICIT NA LE DTR'S. Dural Signs: NEGATIVE NA LE'S. Lumbar mvmt loss: flex - MOD. ext - JHONATAN. R SG - JHONATAN. L SG - JHONATAN. PATIENT WITH C/O INCREASED LBP WITH LUMBAR ROM TESTING ALL PLANES. Core strength: POOR. TREATMENT: INITIATED HEP WITH SINK EX'S AND ALTHOUGH THEY WERE CHALLENGING FOR HER SHE REALLY SEEMED TO ENJOY DOING THEM. INSTRUCTED IN STANDING HIP FLEX, EXT, ABD, KNEE FLEX, CHAIR SQUATS AND HEEL RAISES. WRITTEN HEP PROVIDED. - Goals Goal 1:: PATIENT WILL BE INDEP AND SAFE WITH GAIT ON LEVEL SURFACES AND UP AND DOWN STEPS WITH LEAST ASSISTIVE DEVICE. Goal Time Frame: 4-6 Weeks Goal 2:: IMPROVE GENERAL STRENGTH AND ENDURANCE TO EASE ADL'S. Goal Time Frame: 4-6 Weeks Goal 3:: PATIENT WILL BE INDEP WITH A HEP FOR CONTINUED IMPROVEMENT ONCE FORMAL PHYSICAL THERAPY CONCLUDES. Goal Time Frame: 4-6 Weeks - Anticipated Interventions Patient/Client Instruction: Educate patient on: Condition, Plan of Care, Risk Factors For the Purpose of:: To improve self management Therapeutic Exercise to Include: Strength training, Endurance training, Balance training, Body mechanics, Postural training, Flexibilty training, Gait and locomotor training, Neuromotor development, Dynamic Lumbar Stabilization For the Purpose of:: To improve muscle performance and motor function, To increase tolerance to activity/condition/position, To improve ability of physical actions for home/community/work/leisure, To improve gait and locomotor functions Thank you for the opportunity to evaluate your patient. For Medicare and Medicare HMO plans, please review the plan of care and approve it. It will need to be FAXED BACK to us at [phone] for Medicare purposes. For Medicare only, by signing this I certify the plan of care. Please let me know if there are questions or concerns regarding this plan of care. Physician Signature: Date:
--- NOTE | 2020-07-07 11:33 | HP.PTREVAL ---
Dr. Chaparrita Albrecht, DO, It has been my pleasure to treat CLARENCE ALBERT over the last 9 visits for S/P CVA 03/28/20 - OTHER SYMPTOMS & SIGNS INVOLVING MUSCULOSKELETAL SYSTEMS. Please see the progress note below for an update on the physical therapy plan of care! Subjective: PATIENT REPORTS THERAPY IS REALLY HELPING HER A LOT AND SHE NEEDS TO CONTINUE. STATES SHE IS REALLY GETTING SO MUCH OUT OF THIS. PATIENT REPORTS SHE IS SO MUCH BETTER BUT SHE IS STILL UNSTEADY. Objective/Function: PATIENT WAS SEEN TODAY FOR RE-ASSESSMENT OF PROGRESS TOWARD THE SET PT GOALS AND THE NEED FOR FURTHER PHYSICAL THERAPY VS READINESS FOR DISCHARGE. PATIENT IS MAKING GOOD PROGRESS TOWARD ALL PT GOALS AND IS A GOOD CANDIDATE TO CONTINUE PT BASED ON PROGRESS MADE AND ROOM FOR FURTHER IMPROVEMENT. UPON EXAM TODAY: INDEP GAIT INTO PT WITH WIDE BASE OF SUPPORT AND DECRASED NA STRIDE LENGTH BUT STRIDE LENGTH HAS IMRPOVED SINCE INITIAL EVAL. NO LOB BUT STILL QUICK STEPS. NOW ABLE TO BALANCE ON RLE X 8 SEC AND LLE X 5 SEC WITHOUT UE ASSIST. PATIENT AGREEABLE. Motor deficit: NA LE WEAKNESS. HIPS 4-/5, KNEES 4/5, ANKLES 5/5. Sensory deficit: HYPERSENSTIVITY IN LEGS NA. ROM deficit: NA LE HIP FLEXOR, HAMSTRING AND GASTROC SOLEUS COMPLEX TIGHTNESS. Reflexes: UNABLE TO ELICIT NA LE DTR'S. Dural Signs: NEGATIVE NA LE'S. Lumbar mvmt loss: flex - MOD. ext - JHONATAN. R SG - JHONATAN. L SG - JHONATAN. PATIENT WITH C/O INCREASED LBP WITH LUMBAR ROM TESTING ALL PLANES. Core strength: POOR. TREATMENT: INITIATED HEP WITH SINK EX'S AND ALTHOUGH THEY WERE CHALLENGING FOR HER SHE REALLY SEEMED TO ENJOY DOING THEM. INSTRUCTED IN STANDING HIP FLEX, EXT, ABD, KNEE FLEX, CHAIR SQUATS AND HEEL RAISES. WRITTEN HEP PROVIDED. Plan Plan: GAIT TRAINING AND BALANCE TRAINING. GENERAL STRENGTHEING AND CONDITIONING TOLERATED TAKING KNEE AND BACK PAIN INTO CONSIDERATION. Goals Goal 1:: PATIENT WILL BE INDEP AND SAFE WITH GAIT ON LEVEL SURFACES AND UP AND DOWN STEPS WITH LEAST ASSISTIVE DEVICE. Goal Time Frame: 4-6 Weeks Goal Progress: Progressing Goal 2:: IMPROVE GENERAL STRENGTH AND ENDURANCE TO EASE ADL'S. Goal Time Frame: 4-6 Weeks Goal Progress: Progressing Goal 3:: PATIENT WILL BE INDEP WITH A HEP FOR CONTINUED IMPROVEMENT ONCE FORMAL PHYSICAL THERAPY CONCLUDES. Goal Time Frame: 4-6 Weeks Goal Progress: Progressing Anticipated Interventions Patient/Client Instruction: Educate patient on: Condition, Plan of Care, Risk Factors For the Purpose of:: To improve self management Therapeutic Exercise to Include: Strength training, Endurance training, Balance training, Body mechanics, Postural training, Flexibilty training, Gait and locomotor training, Neuromotor development, Dynamic Lumbar Stabilization For the Purpose of:: To improve muscle performance and motor function, To increase tolerance to activity/condition/position, To improve ability of physical actions for home/community/work/leisure, To improve gait and locomotor functions Please do not hesitate to contact me at [phone] by phone or if you have questions or concerns regarding this new plan of care! Sincerely, Nona Chan, PT, Cert MDT
--- NOTE | 2020-07-29 14:20 | HP.PTREVAL_ITS ---
Dr. Chaparrita Albrecht, DO, It has been my pleasure to treat CLARECNE ALBERT over the last 17 visits for S/P CVA 03/28/20 - OTHER SYMPTOMS & SIGNS INVOLVING MUSCULOSKELETAL SYSTEMS. Please see the progress note below for an update on the physical therapy plan of care! Subjective: PATIENT REPORTS SHE REALLY LOVES THE MACHINES AND PLANS TO JOIN TODAY BUT IS STILL A LITTLE CONCERNED ABOUT INDEP SAFE USE OF ALL OF THEM. REQUESTING FURTHER INSTRUCTION. PATIENT REPORTS R SHLD PAIN TODAY AND SHE IS GETTING AN INJECTION AFTER PT. PATIENT DENIES INCREASED SHLD PAIN WITH PT. PATIENT REPORTS SHE IS SO HAPPY THAT SHE IS WALKING AND DOING STAIRS SO MUCH BETTER. THERE ARE STILL THINGS I NEED TO WORK ON. PATIENT REPORTS SHE HAS NEVER BEEN AN ATHLETE BUT SHE IS SO HAPPY TO BE ABLE DO THESE EX'S. Objective/Function: PATIENT WAS SEEN TODAY FOR RE-ASSESSMENT OF PROGRESS TOWARD THE SET PT GOALS AND THE NEED FOR FURTHER PHYSICAL THERAPY VS READINESS FOR DISCHARGE. PATIENT IS MAKING GOOD PROGRESS TOWARD ALL PT GOALS AND IS A GOOD CANDIDATE TO CONTINUE PT BASED ON PROGRESS MADE AND ROOM FOR FURTHER IMPROVEMENT. SHE IS READY TO DECREASE FREQUENCY OF FORMAL PT DALIA'TS AND START TRANSITIONING TO INDEP EX AFTER NEXT VISIT. PATIENT IS AGREEABLE. PATIENT IS VERY PLEASANT AND COOPERATIVE TO WORK WITH. UPON EXAM TODAY: PATIENT JAE'S. INDEP GAIT INTO PT WITHOUT ANY ASSISTIVE DEVICES OR LOB. HER STRIDE LENGTH, CADANCE AND BALANCE HAVE ALL IMPROVED BUT SHE IS STILL A FALL RISK DUE TO DECREASED ABILITY TO MAINTAIN SLS BALANCE (PATIENT IS AWARE). THIS PT RECOMMENDS PATIENT CONSIDERS CONTINUED CANE USE FOR SAFETY. TODAY PATIENT JAE'S SLS ON R LE X APPROX 5 SEC AND LEFT 8 SEC WITHOUT UE ASSIST. Motor deficit: NA LE WEAKNESS. HIPS 4-/5, KNEES 4/5, ANKLES 5/5. Sensory deficit: HYPERSENSTIVITY IN LEGS NA. ROM deficit: NA LE HIP FLEXOR, HAMSTRING AND GASTROC SOLEUS COMPLEX TIGHTNESS. Dural Signs: NEGATIVE NA LE'S. Lumbar mvmt loss: flex - MOD. ext - JHONATAN. R SG - JHONATAN. L SG - JHONATAN. PATIENT WITH C/O INCREASED LBP WITH LUMBAR ROM TESTING ALL PLANES. Core strength: POOR. OTHER: ENCOURAGED SLS EX AT KITCHEN SINK. Plan Plan: Cont 1X/WEEK X 4 WKS with Gym log progression with emphasis on good safe body mechanics getting on/off machines, setting up machines and with cleaning of machines. Patient is agreeable. Ok for patient to start indep ex 1-2 times a week after next PT session as agreed upon by patient and [facility]. Try to add 1-2 new machines ea visit as indicated. GAIT TRAINING AND BALANCE TRAINING. GENERAL STRENGTHEING AND CONDITIONING TOLERATED TAKING KNEE AND BACK PAIN INTO CONSIDERATION. Goals Goal 1:: PATIENT WILL BE INDEP AND SAFE WITH GAIT ON LEVEL SURFACES AND UP AND DOWN STEPS WITH LEAST ASSISTIVE DEVICE. Goal Time Frame: 4-6 Weeks Goal Progress: Progressing Goal 2:: IMPROVE GENERAL STRENGTH AND ENDURANCE TO EASE ADL'S. Goal Time Frame: 4-6 Weeks Goal Progress: Progressing Goal 3:: PATIENT WILL BE INDEP WITH A HEP FOR CONTINUED IMPROVEMENT ONCE FORMAL PHYSICAL THERAPY CONCLUDES. Goal Time Frame: 4-6 Weeks Goal Progress: Progressing Anticipated Interventions Patient/Client Instruction: Educate patient on: Condition, Plan of Care, Risk Factors For the Purpose of:: To improve self management Therapeutic Exercise to Include: Strength training, Endurance training, Balance training, Body mechanics, Postural training, Flexibilty training, Gait and locomotor training, Neuromotor development, Dynamic Lumbar Stabilization For the Purpose of:: To improve muscle performance and motor function, To increase tolerance to activity/condition/position, To improve ability of physical actions for home/community/work/leisure, To improve gait and locomotor functions Please do not hesitate to contact me at [phone] by phone or if you have questions or concerns regarding this new plan of care! Sincerely, Nona Chan, PT, Cert MDT
--- NOTE | 2020-08-15 14:07 | HP.PTREVAL_ITS ---
Dr. 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 Please see the progress note below for an update on the physical therapy plan of care! Subjective: PATIENT REPORTS SHE IS SO HAPPY TO BE ABLE TO DO MORE. STATES SHE CAN TAKE OUT HER TRASH, TAKE A BATH , GO GET HER MAIL AND GO TO THE STORE NOW BY HERSELF AND SHE COULD NOT DO THOSE THINGS BEFORE. PATIENT REPORTS SHE IS GREATLY BENEFITING FROM THE PHYSICAL THERAPY AND SHE IS GETTING TO UNDERSTAND HOW TO USE THE MACHINES MORE AND MORE BUT SHE ISN'T QUITE CONFIDENT ENOUGH TO BE COMPLETELY ON HER OWN. PATIENT REPORTS SHE IS HAPPY TO BE ABLE TO BE DOING SOME HOUSEWORK TOO. SHE STATES SHE WAS SO WEAK BEFORE THAT SHE COULDN'T EVEN DO HER LAUNDRY AND HAD TO USE THE WALKER. NOT USING WALKER AT ALL NOW. PATIENT REPORTS HER SHOULDER IS FEELING A LOT BETTER SINCE THE INJECTION AND THE EX'S WITH HER ARM FELT GOOD TODAY. Objective/Function: PATIENT WAS SEEN TODAY FOR RE-ASSESSMENT OF PROGRESS TOWARD THE SET PT GOALS AND THE NEED FOR FURTHER PHYSICAL THERAPY VS READINESS FOR DISCHARGE. UPON EXAM TODAY: PATIENT WAS SEEN TODAY FOR RE-ASSESSMENT OF PROGRESS TOWARD THE SET PT GOALS AND THE NEED FOR FURTHER PHYSICAL THERAPY VS READINESS FOR DISCHARGE. PATIENT IS MAKING GOOD PROGRESS TOWARD ALL PT GOALS AND IS A GOOD CANDIDATE TO CONTINUE PT BASED ON PROGRESS MADE AND ROOM FOR FURTHER IMPROVEMENT. PATIENT IS AGREEABLE. 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 UPON EXAM TODAY: PATIENT JAE'S. INDEP GAIT INTO PT WITHOUT ANY ASSISTIVE DEVICES OR LOB. HER STRIDE LENGTH, CADANCE AND BALANCE HAVE ALL IMPROVED BUT SHE IS STILL A FALL RISK DUE TO DECREASED ABILITY TO MAINTAIN SLS BALANCE (PATIENT IS AWARE). TODAY PATIENT JAE'S SLS ON R LE X APPROX 6 SEC AND LEFT 11 SEC WITHOUT UE ASSIST. Motor deficit: NA LE WEAKNESS. HIPS R 4/5, LEFT 4-/5, KNEES 4/5, ANKLES 5/5. Sensory deficit: HYPERSENSTIVITY IN LEGS NA. ROM deficit: NA LE HIP FLEXOR, HAMSTRING AND GASTROC SOLEUS COMPLEX TIGHTNESS. Dural Signs: NEGATIVE NA LE'S. Lumbar mvmt loss: flex - MOD. ext - JHONATAN. R SG - JHONATAN. L SG - JHONATAN. PATIENT WITH C/O SOME INCREASED LBP WITH LUMBAR ROM TESTING ALL PLANES. Core strength: POOR. THIS PT ENCOURAGED PATIENT TO CONTINUE TO COME EX INDEP'LY BETWEEN PT SESSIONS AND DO THE EX'S SHE FEELS CONFIDENT WITH. Plan Plan: Cont 1X/WEEK X 4 WKS with Gym log progression with emphasis on good safe body mechanics getting on/off machines, setting up machines and with cleaning of machines. Patient is agreeable. Ok for patient to start indep ex 1-2 times a week after next PT session as agreed upon by patient and ZOO VETERINARIAN. Try to add 1-2 new machines ea visit as indicated. GAIT TRAINING AND BALANCE TRAINING. GENERAL STRENGTHEING AND CONDITIONING TOLERATED TAKING KNEE AND BACK PAIN INTO CON SIDERATION. Goals Goal 1:: PATIENT WILL BE INDEP AND SAFE WITH GAIT ON LEVEL SURFACES AND UP AND DOWN STEPS WITH LEAST ASSISTIVE DEVICE. Goal Time Frame: 4-6 Weeks Goal Progress: Progressing Goal 2:: IMPROVE GENERAL STRENGTH AND ENDURANCE TO EASE ADL'S. Goal Time Frame: 4-6 Weeks Goal Progress: Progressing Goal 3:: PATIENT WILL BE INDEP WITH A HEP FOR CONTINUED IMPROVEMENT ONCE FORMAL PHYSICAL THERAPY CONCLUDES. Goal Time Frame: 4-6 Weeks Goal Progress: Progressing Anticipated Interventions Patient/Client Instruction: Educate patient on: Condition, Plan of Care, Risk Factors For the Purpose of:: To improve self management Therapeutic Exercise to Include: Strength training, Endurance training, Balance training, Body mechanics, Postural training, Flexibilty training, Gait and locomotor training, Neuromotor development, Dynamic Lumbar Stabilization For the Purpose of:: To improve muscle performance and motor function, To increase tolerance to activity/condition/position, To improve ability of physical actions for home/community/work/leisure, To improve gait and locomotor functions Please do not hesitate to contact me at [phone] by phone or if you have questions or concerns regarding this new plan of care! Sincerely, Nona Chan, PT, Cert MDT
--- NOTE | 2020-09-19 14:06 | HP.PTDCSUM ---
It has been my pleasure to treat CLARENCE ALBERT referred by Dr. Chaparrita Albrecht DO, with the diagnosis of S/P CVA 03/28/20 - OTHER SYMPTOMS & SIGNS INVOLVING MUSCULOSKELETAL SYSTEMS for a total of 24 visit(s). Discharge Date: 09/19/20 Please see the following information for a summary of their discharge status. Subjective: PATIENT REPORTS SHE FEELS LIKE SHE HAS FINELY GOT IT. STATES SHE IS READY TO BE DISCHARGED AND IS SO THANKFUL FOR THE HELP WE HAVE GIVEN HER. I AM GETTING VERY COMFORTABLE ON THE MACHINES AND I HAVE EVEN UP'D SOME WEIGHTS. STATES SHE WAS EVEN ABLE TO OPEN A JAR. PATIENT REPORTS SHE IS WHERE SHE WANTS TO BE AND SHE IS NOT SHUFFLING ANYMORE. STATES SHE IS TRYING TO COME TO EX ON TUESDAY'S, TUESDAY'S AND TUESDAY'S AND SHE CAN TELL WHEN SHE DOESN'T COME. LB Pain Intensity (Out of 10): Unrated R SHLD Pain Intensity (Out of 10): 0 % Improvement: 100 Objective/Function: PATIENT WAS SEEN TODAY FOR RE-ASSESSMENT OF PROGRESS TOWARD THE SET PT GOALS AND THE NEED FOR FURTHER PHYSICAL THERAPY VS READINESS FOR DISCHARGE. ALL GOALS MET. PATIENT HAS BECOME INDEP WITH A GYM AND WITH HEP BUT SHE IS STILL A FALL RISK AND SHE IS AWARE OF THIS. SHE STATES SHE DOES BETTER WITHOUT A CANE. HER PROGRESS IS PLATEUING WITH TESTING TODAY. UPON EXAM TODAY: PATIENT IS VERY PLEASANT AND COOPERATIVE TO WORK WITH. PATIENT JAE'Gertrude. INDEP GAIT INTO PT WITHOUT ANY ASSISTIVE DEVICES OR LOB. HER STRIDE LENGTH, CADANCE AND BALANCE HAVE ALL IMPROVED BUT SHE IS STILL A FALL RISK DUE TO DECREASED ABILITY TO MAINTAIN SLS BALANCE (PATIENT IS AWARE). PATIENT STILL WALKS WITH A WIDE BASE OF SUPPORT AND ALTHOUGH SHE IS PICKING HER FEET UP BETTER SHE STILL HAS DECREASED NA STRIDE LENGTH. TODAY PATIENT JAE'S SLS ON R LE X APPROX 4 SEC AND LEFT 8 SEC WITHOUT UE ASSIST (PATIENT REPORTS SHE HAS BEEN FORGETTING TO WORK ON THIS AT HOME AND IS GOING TO TRY TO DO BETTER). Motor deficit: NA LE WEAKNESS. HIPS R 4/5, LEFT 4-/5, KNEES 4/5, ANKLES 5/5. Sensory deficit: HYPERSENSTIVITY IN LEGS NA. ROM deficit: NA LE HIP FLEXOR, HAMSTRING AND GASTROC SOLEUS COMPLEX TIGHTNESS. Dural Signs: NEGATIVE NA LE'S. Lumbar mvmt loss: flex - MOD. ext - JHONATAN. R SG - JHONATAN. L SG - JHONATAN. PATIENT WITH C/O SOME INCREASED LBP WITH LUMBAR ROM TESTING ALL PLANES. Core strength: POOR. OTHER: PATIENT WITH HEMATOMA LEFT DESAI TODAY AND SHE REPORTS SHE HIT IT ON A GROCERY CART. PATIENT REPORTS SHE IS USE TO DEALING WITH THIS TYPE OF BRUISING. Goal 1:: PATIENT WILL BE INDEP AND SAFE WITH GAIT ON LEVEL SURFACES AND UP AND DOWN STEPS WITH LEAST ASSISTIVE DEVICE. Goal Progress: Goal Met Goal 2:: IMPROVE GENERAL STRENGTH AND ENDURANCE TO EASE ADL'S. Goal Progress: Goal Met Goal 3:: PATIENT WILL BE INDEP WITH A HEP FOR CONTINUED IMPROVEMENT ONCE FORMAL PHYSICAL THERAPY CONCLUDES. Goal Progress: Goal Met Plan: D/C TO INDEP EX. PATIENT AGREEABLE. If there are questions or concerns regarding this patient's physical therapy, please feel free to call me at [phone]. Thank you for the referral of this patient. Sincerely, Nona Chan, PT, Cert MDT
== END 2020-09-19 19:00 | disposition home or self-care (01) ==
LOC: PT 12:30
PROVIDERS: PCP Internal Medicine; Referring Provider Internal Medicine; Visit Provider Internal Medicine
DX: R29.898 Other symptoms and signs involving the musculoskeletal system (principal)
CPT/HCPCS: 97110; 97116; 97162; 97164

== ENCOUNTER → 2020-10-14 15:53 | Outpatient (CLI) | payer MEDICARE, OTHER, SELFPAY ==
[2020-05-07 12:44] VITALS: BMI 25.4
[2020-10-14 10:04] VITALS: BMI 25.9
--- NOTE | 2020-10-14 15:30 | PET_ITS ---
EXAMINATION: FDG PET-CT INDICATIONS: An 80-year-old female with reported history of carcinoma of the lung presenting for restaging examination. COMPARISON EXAMINATION: Previous FDG PET study dated 10/16/19 INDEX LESION SIZE SUV INTERPRETATION NEW: right upper lung-right upper lobe 22.4-mm (frame 162) 3.5 Fulfills quantitative criteria for viable neoplasm NEW: mediastinum, right thoracic perihilum 21.2-mm (largest) (frame 155) 4.8 (max) Fulfills quantitative criteria for viable neoplasm NEW: right lobe hepatic parenchyma segment V, VIII 35.5-mm (largest) (frame 137) 7.1 (max) ratio > 2.0 Fulfills quantitative criteria for viable neoplasm PERSISTENT: right upper anterolateral lung-right upper lobe 1.8 comp. to 4.6 (10/16/19) Quantitative criteria for viable neoplasm are not fulfilled, interim metabolic improvement-quantitative complete metabolic response TECHNIQUE: Following the intravenous administration of 11.67 mCi of F-18 deoxyglucose via the left antecubital fossa, multiplanar image acquisitions of the neck, chest, abdomen and pelvis to level of mid thigh, obtained at one hour post radiopharmaceutical administration contemporaneously interpreted with the current CT of the neck, chest, abdomen and pelvis, to level of mid thigh, dated 10/14/20 via coregistration and FDG PET study dated 10/16/19 reveals: BLOOD GLUCOSE LEVEL:?? 111 mg/dl?HEIGHT:?63 inches?WEIGHT: 146 lbs. FINDINGS: 1. Newly identified increased FDG uptake is noted in the carinal level mediastinum and right upper-mid anteromedial lung-right upper lobe generating a calculated maximal standard uptake value of 3.5. The maximal axial diameter of the corresponding parenchymal density on review of CT of the chest dated 10/14/20 is 22.4-mm (AP). 2. Enhanced tracer concentration is presently visualized in the carinal level mediastinum and right thoracic perihilum registering a calculated maximal standard uptake value of 4.8. The maximal axial diameter of the largest individual metabolic, morphologic abnormality on review of CT of the chest dated 10/14/20 is 21.2-mm (AP). 3. An increase in fluorine labeled glucose metabolism is manifest in the right lobe of the hepatic (2.9/2.8) parenchyma in two separate presentations to include segments V, VIII. The calculated maximal standard uptake value is 7.1, with a lesion to liver background ratio greater than 2.0. The maximal axial diameter of the largest metabolic, morphologic abnormality on review of CT of the abdomen dated 10/14/20 is 35.5-mm (transverse). 4. Increased radiopharmaceutical distribution remains apparent in the right upper anterolateral lung-right upper lobe registering a calculated maximal standard uptake value of 1.8, compared to 4.6 defined on the previous examination. Quantitative criteria for viable neoplasm are not fulfilled. 5. Normal physiologic distribution of the radiopharmaceutical is apparent in the splenic parenchyma, both renal units, bladder and visualized intestinal tract. The visualized portion of the cerebral cortical-subcortical structures demonstrate symmetric and preserved glucose metabolism. Diffuse radiopharmaceutical concentration is noted in all four quadrants of the abdomen and pelvis. Pertinent CT findings are as follows: CHEST: There are no additional parenchymal densities-nodules defined in the right and left hemithorax with discernible quantitatively significant increased FDG uptake. A ground glass density noted in the left mid posterior lung-left upper lobe and subcentimeter density manifest in the right mid posterolateral lung-right lower lobe reveal no evidence of increased tracer uptake. There is atherosclerotic calcification defined in the thoracic aorta without evidence of dilatation-aneurysm formation. Coronary arterial calcification is observed. Bilateral subcentimeter axillary soft tissue with fatty hilus is ametabolic. ABDOMEN AND PELVIS: There is atherosclerotic calcification defined in the abdominal aorta without evidence of dilatation-aneurysm formation. Pelvic arterial calcification is defined. Cyst formation is manifest in the left lower hemipelvis without evidence of increased tracer uptake. Colonic diverticulosis is encountered without evidence of diverticulitis. Calcifications are noted in the bilateral lower hemipelvis. SKELETAL: Degenerative changes are noted in the cervical, thoracic and lumbar spine without evidence of increased radiopharmaceutical concentration. Orthopedic hardware placement is noted in the lower lumbar spine commensurate with spinal fusion operative intervention. PET/PET/CT Tumor Base -Thigh Subs IMPRESSION: 1. ABNORMAL EXAMINATION INDICATIVE OF MALIGNANT VIABLE NEOPLASM. 2. Increased glucose concentration newly apparent in the right mid anteromedial lung-right upper lobe fulfills quantitative criteria for malignant transformation. Histopathologic analysis is recommended. (Milena et al, Annals of Internal Medicine, 138:724, 2003). 3. Mediastinal and right thoracic perihilar increased fluorine labeled glucose uptake fulfill quantitative criteria for malignant transformation. (Luis et al, Journal of Clinical Oncology 16:2142, 1998). 4. There is current evidence of right lobe hepatic parenchymal metastatic disease. (Angela et al, Archives of Surgery, 133:510 1998). 5. Redefined increased glucose concentration noted in the right upper anterolateral lung-right upper lobe does not fulfill quantitative criteria for viable neoplasm. 6. Overall, compared to the prior FDG PET study dated 10/16/19, there is interim metabolic progression-development of defined viable neoplastic disease within the context of the right upper lung-right upper lobe, mediastinal structures-right thoracic perihilum and right lobe of the hepatic parenchyma as defined above. There is an interval quantitative complete metabolic response relating to the persistently defined right upper anterolateral lung-right upper lobe metabolic focus. Electronic Signature Ankur Adams D.O. Accurate Quantification of SUVs for this report are calculated using the exclusive [employer]. ([place].S. Patent No. [id number]). Standardization and correction of the FDG SUV metric via [employer] technology allow for vendor non-specific objective quantitative examination comparison and optimization of the sensitivity and specificity of the FDG PET-CT examination. Electronically Signed: Ankur Adams DO at 7:56 EDT Tel , Service support ,
== END ==
PROVIDERS: PCP Internal Medicine; Referring Provider Internal Medicine Hematology & Oncology; Visit Provider Internal Medicine Hematology & Oncology
DX: C34.11 Malignant neoplasm of upper lobe, right bronchus or lung (principal)
CPT/HCPCS: 78815; A9552

== ENCOUNTER 2020-11-11 14:18 | Inpatient (IN) | payer MEDICARE, OTHER, SELFPAY ==
[2020-10-14 10:04] VITALS: BMI 25.9
[2020-11-11] VITALS (12 sets, daily range): BP systolic 90–135; BP diastolic 59–75; PULSE 64–90; RESP 16–30; TEMP 36.6–37.7; O2SAT 85–99; BMI 25.8; BMI 26.2
--- NOTE | 2020-11-11 14:25 | EKG12_ITS ---
Test Reason : Blood Pressure : / mmHG Vent. Rate : 070 BPM Atrial Rate : 070 BPM P-R Int : 144 ms QRS Dur : 082 ms QT Int : 406 ms P-R-T Axes : 050 -33 018 degrees QTc Int : 438 ms Normal sinus rhythm Left axis deviation Abnormal ECG Confirmed by LORENZO MANN, RANGEL ([id number]), food expeditor ROSIBEL KIRKPATRICK ([id number]) on 11/14/2020 9:25:18 AM Referred By: EDWINA/MAMADOU Confirmed By:SNEHAL VENTURA MD
--- NOTE | 2020-11-11 14:45 | EDS_ITS ---
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 Type 2 diabetes mellitus Home Medications aspirin 81 mg PO DAILY@0800 04/20/16 [History Last Taken 03/21/19 09:00] trazodone 100 mg PO DAILY 04/20/16 [History Last Taken 03/20/19 21:00] amlodipine 10 mg PO DAILY 03/21/19 [History Last Taken 03/21/19 09:00] atorvastatin 20 mg PO DAILY 03/21/19 [History Last Taken 03/20/19 21:00] doxycycline hyclate 20 mg PO BID 03/21/19 [History Last Taken 03/21/19 09:00] mirabegron 50 mg PO DAILY 03/21/19 [History Last Taken 03/21/19 09:00] omeprazole 20 mg PO DAILY 03/21/19 [History Last Taken 03/21/19 09:00] buspirone 5 mg tablet 10 mg PO TID tab 05/06/20 [History Last Taken Unknown] clopidogrel 75 mg tablet 75 mg PO DAILY 05/06/20 [History Last Taken Unknown] lactobacillus combination no.9 4 billion cell capsule 4,000 mmu cells PO DAILY 05/06/20 [History Last Taken Unknown] linagliptin 5 mg tablet 5 mg PO DAILY 05/06/20 [History Last Taken Unknown] benazepril 20 mg tablet 10 mg PO DAILY tab 05/07/20 [History Last Taken Unknown] carvedilol 25 mg tablet 12.5 mg PO BID tab 05/07/20 [History Last Taken Unknown] cholecalciferol (vitamin D3) 125 mcg (5,000 unit) capsule 125 mcg PO DAILY 05/07/20 [History Last Taken Unknown] vilazodone 40 mg tablet 40 mg PO DAILY 05/07/20 [History Last Taken Unknown] Allergy/AdvReac Type Severity Reaction Status Date / Time clarithromycin [From Biaxin] Allergy Severe Vomiting Verified 10/14/20 10:16 metaxalone [From Skelaxin] Allergy Severe Hives Verified 10/14/20 10:16 morphine AdvReac Shortness Verified 10/14/20 10:16 of breath Family History Mother Brain aneurysm Father Heart disease Diabetes Grandfather Cancer Grandmother Cancer Surgical History History of appendectomy History of back surgery History of cataract surgery History of cholecystectomy History of total knee arthroplasty Social History Smoking Status: Former smoker alcohol intake: never substance use type: does not use additional social history: Does Take Aspirin Does Not Take Ibuprofen ROS ROS ED ROS Narrative Cough and sweats and shortness of breath. Review of Systems ROS Unobtainable: Denies due to encephalopathy Constitutional Constitutional ED: Reports chills and sweats; Denies fever(s) Eyes Eyes: Denies change in vision ENT ENT ED: Denies ear pain or sore throat Cardiovascular Cardiovascular: Denies chest pain or palpitations Respiratory/Chest Respiratory/Chest: Reports cough, dyspnea and dyspnea on exertion Gastrointestinal Gastrointestinal: Reports diarrhea; Denies abdominal pain, nausea or vomiting Genitourinary Genitourinary ED: Denies dysuria Musculoskeletal Musculoskeletal: Reports arthralgias; Denies myalgias Integumentary Denies rash Neurologic Neurologic: Denies headache(s) Psychiatric Psychiatric: Denies depression Endocrine Endocrinology: Denies polyuria Hematologic/Lymphatic Hematologic/Lymphatic: Denies easy bruising Allergic/Immunologic Allergic/Immunologic ED: Denies urticaria EXAM Physical Exam Narrative Exam Narrative: Old female with 5% on room air and improved to low to mid 90s on oxygen. Does not look septic or toxic. Currently no distress. Reportedly diagnosed with Covid in the last week. Had recent travel to [place]. She has a history of diabetes, renal insufficiency and lung cancer with liver mets. Already of cardiac disease or prior PEs. She denies any hemoptysis. She was vaccinated for Covid. Const Vital Signs: 11/11/20 14:20 11/11/20 14:48 11/11/20 14:58 Temperature 98.9 F 97.9 F Temperature Source Temporal Temporal Pulse Rate 78 71 Respiratory Rate 17 16 Respiratory Effort Short of Breath Respiratory Depth Normal Respiratory Pattern Normal Blood Pressure 93/69 93/69 Blood Pressure Mean 77 77 Pulse Ox 85 97 Oxygen Delivery Method Room Air Room Air Room Air Oxygen Flow Rate (L/min) 11/11/20 15:52 11/11/20 16:48 11/11/20 17:57 Temperature 99.9 F H 99.1 F Temperature Source Oral Oral Pulse Rate 69 74 Respiratory Rate 17 30 H Respiratory Effort Respiratory Depth Respiratory Pattern Blood Pressure 90/63 93/75 Blood Pressure Mean 72 81 Pulse Ox 99 98 97 Oxygen Delivery Method Nasal Cannula Nasal Cannula Nasal Cannula Oxygen Flow Rate (L/min) 2 2 2 11/11/20 18:03 Temperature 98.8 F Temperature Source Oral Pulse Rate 90 Respiratory Rate 18 Respiratory Effort Respiratory Depth Respiratory Pattern Blood Pressure 94/63 Blood Pressure Mean 73 Pulse Ox 97 Oxygen Delivery Method Nasal Cannula Oxygen Flow Rate (L/min) 2 Positive well nourished and well developed; Negative for contractures or unkempt General Appearance ED: well developed and NAD; Negative for unkempt or contractures HEENT Reports moist mucous membranes atraumatic; Negative for trauma or tenderness Eyes PERRL and EOMs intact bilaterally Neck no lymphadenopathy, supple, no meningeal signs and no JVD General: Negative for tenderness Resp normal respiratory effort Auscultation: wheezes; Negative for rales or rhonchi Cardio regular rate, regular rhythm, S1 normal heart sound, S2 normal heart sound and no murmurs GI non-tender, non-distended and no masses Auscultation: normoactive bowel sounds Palpation: soft; Negative for tender or guarding Back/Spine no CVA tenderness and normal to inspection General Back: Negative for CVA tenderness or tenderness Extremity normal to inspection General Extremety ED: Yes tenderness; Negative for edema or other findings General Extremity: Negative for edema or other findings Neuro oriented x3 Sensorium / Orientation: alert, oriented to person, oriented to place and confused; Negative for lethargic or stuporous Motor Exam: strength 5/5 throughout Psych mental status grossly normal Appearance: Negative for unkempt Skin no wounds General Skin Exam: Negative for jaundice Lesions: no lesions Rashes: no rashes MDM MDM MDM Narrative Medical decision making narrative: 80-year-old female reportedly Covid positive. Has previously received a Covid vaccine. She has a history of lung cancer with metastases. Sent in for further evaluation due to hypoxia. She is typically not on oxygen. Patient has had recent travel but has known renal insufficiency and her last several creatinines around 2-1/2 so we will do a D-dimer but if her kidney function is where typically as we will be able to perform a CTA. Patient doing well multiple repeat exams last one at 6:25 PM. I have spoken to her daughter who is a physician locally via phone. Patient is not to be intubated nor received CPR. She has known metastatic lung cancer. Currently she is actually doing well with all that she has both past medical history and the acute Covid. She will be started on Rocephin and Zithromax. And treated with a liter normal saline. She also receive IV Decadron. Lab Data Attestation: I reviewed the patient's lab results. Lab results narrative: CBC shows white count 2.5. Hemoglobin 9.2. D-dimer is elevated at 3.42 but with her creatinine of 3.2 she cannot undergo a CTA. Electrolytes show a gap of 10. Glucose of 171. Troponin is normal at 26. Lactic acid is 1 and BNP is 227. Labs: Laboratory Results - last 24 hr 11/11/20 11/11/20 11/11/20 14:55 14:55 14:55 WBC 2.5 L RBC 3.22 L Hgb 9.2 L Hct 29.4 L MCV 91.3 MCH 28.6 MCHC 31.3 L RDW Std Deviation 41.8 RDW Coeff of Dee 12.4 Plt Count 135 L MPV 10.8 Immature Gran % (Auto) 1.200 H Neut % (Auto) 77.5 H Lymph % (Auto) 6.8 L [place] % (Auto) 14.1 H Eos % (Auto) 0.0 Baso % (Auto) 0.4 Absolute Neuts (auto) 1.9 L Absolute Lymphs (auto) 0.17 L Nucleated RBC % 0 Differential Comment SEE COMMENT Diff Path Review May foll Platelet Estimate SLT DEC RBC Morphology N CHROM Hypochromasia RARE Anisocytosis RARE Macrocytosis RARE D-Dimer Quant (PE/DVT) 3.42 H* Sodium 139 Potassium 4.1 Chloride 105 Carbon Dioxide 24.0 Anion Gap 10 BUN 43 H Creatinine 3.25 H Estim Creat Clear Calc 11.04 Est GFR (MDRD) Af Amer 18 L Est GFR (MDRD) Non-Af 15 L BUN/Creatinine Ratio 13.2 Glucose 171 H Lactic Acid Calcium 8.1 L Troponin I High Sens 26.1 B-Natriuretic Peptide 11/11/20 11/11/20 14:55 14:55 WBC RBC Hgb Hct MCV MCH MCHC RDW Std Deviation RDW Coeff of Dee Plt Count MPV Immature Gran % (Auto) Neut % (Auto) Lymph % (Auto) [place] % (Auto) Eos % (Auto) Baso % (Auto) Absolute Neuts (auto) Absolute Lymphs (auto) Nucleated RBC % Differential Comment Diff Path Review Platelet Estimate RBC Morphology Hypochromasia Anisocytosis Macrocytosis D-Dimer Quant (PE/DVT) Sodium Potassium Chloride Carbon Dioxide Anion Gap BUN Creatinine Estim Creat Clear Calc Est GFR (MDRD) Af Amer Est GFR (MDRD) Non-Af BUN/Creatinine Ratio Glucose Lactic Acid 1.0 Calcium Troponin I High Sens B-Natriuretic Peptide 227.3 H Radiography Chest X-Ray - ED: 1 View, Read by ED Physician, Read by Radiologist, Right Infiltrate and Left Infiltrate Diagnostic Testing: Radiology Impression Chest X-Ray 11/11/20 14:59 IMPRESSION: Bilateral pneumonia, particularly lingular pneumonia. Electronically Signed: Ankur Maddox MD at 15:11 EDT Tel , Service support , Portable 1 view chest x-ray interpreted both by myself and the radiologist shows significant chronic changes and what appears to be bilateral pneumonia could be consistent with Covid could also be bacterial infiltrates. Rhythm Strip Rhythm Strip: Sinus Rhythm Rate: 70 Ectopy: None EKG Initial EKG: Attestation: I personally reviewed and interpreted this EKG as follows: Interpretation: Sinus Rhythm and No Acute Injury Pattern Comments: Normal sinus rhythm rate is 70 no acute signs of TX or ischemia. Prior EKG tracings: not available for review Critical Care Time Critical Care Time: Yes Critical care time (excluding procedures): 30-74 minutes, Including time spent:, Discussing w/Patient &/or Family/Change Management Coordinator, Discussing w/Consultants, Arranging Admission or Transfer, Performing Direct Patient Care at Bedside and - (32) Discharge Plan Dx/Rx/DC Orders Clinical Impression: COVID-19, Hypoxia, Respiratory failure, Acute on chronic renal insufficiency, Acute hypotension, Lung cancer, primary, with metastasis from lung to other site, Acute dehydration, DNR (do not resuscitate) Disposition Disposition: Acute Care [facility]
--- NOTE | 2020-11-11 14:59 | RAD_ITS ---
STUDY: X-RAY CHEST REASON FOR EXAM: Female, 80 years old. dyspnea TECHNIQUE: Single AP portable view of the chest. COMPARISON: 09/19/2019 FINDINGS: Alveolar opacities in both lungs particularly in the lower left lung silhouetting left lung border consistent with lingular pneumonia. Elevated right hemidiaphragm which is unchanged. Normal size heart. Normal mediastinum and laurence. Normal visualized pulmonary arteries. Normal visualized aortic arch and descending thoracic aorta. Normal visualized thoracic spine. Normal visualized ribs, clavicles, and shoulders. There is no demonstrated abnormality of the visualized soft tissue structures of the upper abdomen. RAD/Chest 1 View (Portable) IMPRESSION: Bilateral pneumonia, particularly lingular pneumonia. Electronically Signed: Ankur Maddox MD at 15:11 EDT Tel , Service support ,
[2020-11-11] MEDS: dexAMETHasone 10 MG/ML Vial IV (15:00)
[2020-11-11 15:05] LABS: Absolute Lymphocyte Count 0.17 X10^3/uL (0.83-4.51); Absolute Neutrophil Count 1.9 X10^3/uL (2.0-7.7); Basophil# 0.01 X10^3/uL; Basophil% 0.4 % (0-1); Differential Indicated SCAN CRITERIA MET; Hematocrit 29.4 % (37-47); Hemoglobin 9.2 g/dL (12.0-15.0); Lymphocyte # 0.17 X10^3/ul (0.83-4.51); Lymphocyte % 6.8 % (19-41); Mean Corp Hgb Conc 31.3 g/dL (32-36); Mean Corpuscular Hgb 28.6 pg (27.0-32.0); Mean Corpuscular Volume 91.3 fL (81-99); Mean Platelet Vol. 10.8 fl (6.2-12.0); Monocyte# 0.35 X10^3/uL; Monocyte% 14.1 % (0-10); NRBC Flagged by Analyzer 0 % (0-5); Neutrophil # 1.93 X10^3/uL (2.7-7.7); Neutrophil % 77.5 % (47-70); POSITIVE DIFFERENTIAL YES; Platelet Count 135 K/mm3 (150-450); RBC Distribution Width CV 12.4 % (11.6-14.6); RBC Distribution Width SD 41.8 fl (35.1-43.9); Red Blood Count 3.22 M/mm3 (4.2-5.4); White Blood Count 2.5 K/mm3 (4.4-11.0)
[2020-11-11 15:22] LABS: Anion Gap 10 (5-15); BUN 43 mg/dL (7-18); BUN/Creat Ratio 13.2 RATIO (10-20); Calcium,Total 8.1 mg/dL (8.5-10.1); Chloride 105 mmol/L (98-107); Creatinine, Serum 3.25 mg/dL (0.55-1.02); D-Dimer Quantitative (DVT/PE) 3.42 FEU/ug/m (0.27-0.49); EST Glomerular Filtration Rate 15 mL/min (>60); Est Glom Filt Rate - Afr Amer 18 mL/min (>60); Estimated Creatinine Clearance 11.04 ml/min; Glucose 171 mg/dL (74-106); Potassium 4.1 mmol/L (3.5-5.1); Sodium Level 139 mmol/L (136-145); Troponin-I HS 26.1 pg/mL (3.0-53.7)
[2020-11-11 15:26] LABS: BNP,B-Type NATRIURETIC PEPTIDE 227.3 pg/mL (0-100)
[2020-11-11 15:40] LABS: Platelet Estimate SLT DEC (ADEQ); Red Cell Morphology N CHROM NORMAL (NORM C&C)
[2020-11-11 15:41] LABS: Anisocytosis RARE; Hypochromasia RARE; Macrocytosis RARE
[2020-11-11] MEDS: 0.9% Normal Saline 1,000 ML 999 ML IV (18:28)
[2020-11-11] MEDS: Ceftriaxone 1 GM/50 ML BAG IV (18:50)
--- NOTE | 2020-11-11 18:54 | ED.RN ---
pt with low bp on right arm. bp cuff moved to left arm bp and repeated. bp 135/64. dr. mcgregor informed.
--- NOTE | 2020-11-11 18:56 | PCM.HP.STD ---
HPI - General General Date of Admission: 11/11/20 Date of Service: 11/11/20 Chief Complaint: + COVID prior Tuesday, sxs started Tuesday, F/N/D, now hypoxia. HPI Narrative The patient is an 80 y/o F w/ PMHx: Metastatic Lung CA w/ chronic pancytopenia following w/ Dr. Bean, Chronic COPD w/ former tobacco use, Anxiety and Depression, CKD stage ? IV, Diabetes mellitus type II who presents to the [facility] ED on 11/11/20 with history of recently traveling to [facility] with several family members and unfortunately one of the family members became Covid positive following close interactions with a grandfather who was hospitalized with Covid resulting in several members becoming ill with patient noting initial onset of fevers the prior Tuesday with diagnosis of Covid the prior Tuesday with additionally body aches, fatigue, malaise, confusion, diarrhea, poor appetite but no specific nausea or emesis and eventually asymptomatic hypoxia with significant confusion prompting family to refer patient to the ED. She notes the diarrhea has been profuse, although seems to be lessening. Patient has been Covid vaccinated previously. Work-up in the ED included T 98.9 up to 99.9 orally, heart rate 78, BP initially 93/69 with most recent repeat 135/64 following hydration, respiratory rate ranging 17-30, initially 85% on room air with improvement is 97% on 2 L nasal cannula, CBC with WBC 2.5, hemoglobin 9.2, platelet 135 with neutropenia and lymphopenia, D-dimer 3.42, BMP with BUN/creatinine 43/3.25, glucose 171, lactic acid 1.0, high-sensitivity troponin 26.1, BNP 227.3, chest x-ray with bilateral pneumonia particularly lingular pneumonia, rapid Covid antigen positive, EKG with sinus rhythm with no acute evidence of ischemia. In the ED patient ministered Decadron 10 mg IV x1, Rocephin, azithromycin as well as a 1 L normal saline bolus. 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 Type 2 diabetes mellitus Home Medications trazodone 100 mg PO DAILY 04/20/16 [History Last Taken 03/20/19 21:00] amlodipine 10 mg PO DAILY 03/21/19 [History Last Taken 03/21/19 09:00] atorvastatin 20 mg PO DAILY 03/21/19 [History Last Taken 03/20/19 21:00] doxycycline hyclate 20 mg PO BID 03/21/19 [History Last Taken 03/21/19 09:00] mirabegron 50 mg PO DAILY 03/21/19 [History Last Taken 03/21/19 09:00] omeprazole 20 mg PO DAILY 03/21/19 [History Last Taken 03/21/19 09:00] buspirone 5 mg tablet 10 mg PO TID tab 05/06/20 [History Last Taken Unknown] clopidogrel 75 mg tablet 75 mg PO DAILY 05/06/20 [History Last Taken Unknown] lactobacillus combination no.9 4 billion cell capsule 4,000 mmu cells PO DAILY 05/06/20 [History Last Taken Unknown] linagliptin 5 mg tablet 5 mg PO DAILY 05/06/20 [History Last Taken Unknown] benazepril 20 mg tablet 10 mg PO DAILY tab 05/07/20 [History Last Taken Unknown] carvedilol 25 mg tablet 12.5 mg PO BID tab 05/07/20 [History Last Taken Unknown] cholecalciferol (vitamin D3) 125 mcg (5,000 unit) capsule 125 mcg PO DAILY 05/07/20 [History Last Taken Unknown] vilazodone 40 mg tablet 40 mg PO DAILY 05/07/20 [History Last Taken Unknown] aspirin 325 mg PO DAILY 11/11/20 [History Last Taken 11/11/20] hydrocodone-acetaminophen 0.5 tab PO TID PRN PRN 11/11/20 [History Last Taken Unknown] Allergy/AdvReac Type Severity Reaction Status Date / Time clarithromycin [From Biaxin] Allergy Severe Vomiting Verified 10/14/20 10:16 metaxalone [From Skelaxin] Allergy Severe Hives Verified 10/14/20 10:16 morphine AdvReac Shortness Verified 10/14/20 10:16 of breath Family History Mother Brain aneurysm Father Heart disease Diabetes Grandfather Cancer Grandmother Cancer Surgical History History of appendectomy History of back surgery History of cataract surgery History of cholecystectomy History of total knee arthroplasty Social History Smoking Status: Former smoker alcohol intake: never substance use type: does not use additional social history: Does Take Aspirin Does Not Take Ibuprofen ROS ROS Narrative Admission Review of Systems: CONSTITUTIONAL: No weight loss, + fever, chills, weakness or fatigue. HEENT: Eyes: No visual loss, blurred vision, double vision or yellow sclerae. Ears, Nose, Throat: No hearing loss, sneezing, congestion, runny nose or sore throat. SKIN: No rash or itching, lesions, wounds. CARDIOVASCULAR: No chest pain, chest pressure or chest discomfort, palpitations, edema, orthopnea, syncopal events. RESPIRATORY: No shortness of breath, cough or sputum, wheezing, hemoptysis. GASTROINTESTINAL: + anorexia, diarrhea, No nausea, vomiting, abdominal pain, melena, BRBPR. GENITOURINARY: No dysuria, frequency, urgency or retention. NEUROLOGICAL: + Confusion, No headache, dizziness, syncope, paralysis, ataxia, numbness or tingling in the extremities, focal weakness, change in bowel or bladder control, seizure. MUSCULOSKELETAL: + muscle, back pain, joint pain or stiffness. HEMATOLOGIC: + anemia, bleeding or bruising. LYMPHATICS: No enlarged nodes. No history of splenectomy. PSYCHIATRIC: + history of depression or anxiety. ENDOCRINOLOGIC: No reports of sweating, cold or heat intolerance. No polyuria or polydipsia. ALLERGIES: No history of asthma, hives, eczema or rhinitis. Vital Signs Vital Signs Vital Signs: 11/11/20 14:20 11/11/20 14:48 11/11/20 14:58 Temperature 98.9 F 97.9 F Temperature Source Temporal Temporal Pulse Rate 78 71 Respiratory Rate 17 16 Respiratory Effort Short of Breath Respiratory Depth Normal Respiratory Pattern Normal Blood Pressure 93/69 93/69 Blood Pressure Mean 77 77 Pulse Ox 85 97 Oxygen Delivery Method Room Air Room Air Room Air Oxygen Flow Rate (L/min) 11/11/20 15:52 11/11/20 16:48 11/11/20 17:57 Temperature 99.9 F H 99.1 F Temperature Source Oral Oral Pulse Rate 69 74 Respiratory Rate 17 30 H Respiratory Effort Respiratory Depth Respiratory Pattern Blood Pressure 90/63 93/75 Blood Pressure Mean 72 81 Pulse Ox 99 98 97 Oxygen Delivery Method Nasal Cannula Nasal Cannula Nasal Cannula Oxygen Flow Rate (L/min) 2 2 2 11/11/20 18:03 11/11/20 18:51 Temperature 98.8 F 98.8 F Temperature Source Oral Oral Pulse Rate 90 84 Respiratory Rate 18 30 H Respiratory Effort Respiratory Depth Respiratory Pattern Blood Pressure 94/63 135/64 H Blood Pressure Mean 73 87 Pulse Ox 97 99 Oxygen Delivery Method Nasal Cannula Oxygen Flow Rate (L/min) 2 Weight Weight: 145 lb 10.724 oz Body Mass Index (BMI) 25.8 Physical Exam Narrative Physical Examination: General: Awake, alert, oriented now appropriately to place, person, month, year and several other orientation items, remains cooperative, seated upright in the ED bed in no apparent distress, notes feeling improved, denies complaints. Skin: Normal color, normal turgor, no icterus, no cyanosis. HEENT: AT/NC, EOMI, PERRLA, moderately dry MM, no carotid bruits or JVD noted. Lungs: Diffusely severely diminished, > bases, appropriate effort, no evidence of distress, no rales, ronchi or wheezing. Heart: Regular rate and rhythm; no gallop, rub audible. Abdomen: Soft, NTTP, ND, mildly hyperactive BS, mild HM. Extremities: No cyanosis, clubbing, or edema. Neurological: Patient awake, alert, oriented as noted, improving, cognitive function improved, now baseline intact; pupils equally reactive to light and accommodation, cranial nerves II-XII grossly normal, moving all 4 extremities, no focal deficits, strength moderately to severely globally decreased secondary to acute presentation. Psychiatric: Affect appears fatigued otherwise improved, no acute evidence of depressive or anxiety feelings. Results Lab / Micro Data Result Diagrams: 11/11/20 14:55 11/11/20 14:55 Labs: Laboratory Results - last 24 hr 11/11/20 14:55: WBC 2.5 L, RBC 3.22 L, Hgb 9.2 L, Hct 29.4 L, MCV 91.3, MCH 28.6, MCHC 31.3 L, RDW Std Deviation 41.8, RDW Coeff of Dee 12.4, Plt Count 135 L, MPV 10.8, Immature Gran % (Auto) 1.200 H, Neut % (Auto) 77.5 H, Lymph % (Auto) 6.8 L, Mccone % (Auto) 14.1 H, Eos % (Auto) 0.0, Baso % (Auto) 0.4, Absolute Neuts (auto) 1.9 L, Absolute Lymphs (auto) 0.17 L, Nucleated RBC % 0, Differential Comment SEE COMMENT, Diff Path Review August foll, Platelet Estimate SLT DEC, RBC Morphology N CHROM, Hypochromasia RARE, Anisocytosis RARE, Macrocytosis RARE 11/11/20 14:55: D-Dimer Quant (PE/DVT) 3.42 H* 11/11/20 14:55: Sodium 139, Potassium 4.1, Chloride 105, Carbon Dioxide 24.0, Anion Gap 10, BUN 43 H, Creatinine 3.25 H, Estim Creat Clear Calc 11.04, Est GFR (MDRD) Af Amer 18 L, Est GFR (MDRD) Non-Af 15 L, BUN/Creatinine Ratio 13.2, Glucose 171 H, Calcium 8.1 L, Troponin I High Sens 26.1 11/11/20 14:55: B-Natriuretic Peptide 227.3 H 11/11/20 14:55: Lactic Acid 1.0 Micro: Microbiology 11/11/20 14:51 Mucosa - Nose SARS-CoV-2 Antigen (Rapid) - Final SARS-CoV-2 (COVID 19) Rhythm Strip Rhythm Strip: Sinus Rhythm Rate: 70 Ectopy: None Radiology Impression Chest X-Ray 11/11/20 14:59 IMPRESSION: Bilateral pneumonia, particularly lingular pneumonia. Electronically Signed: Ankur Maddox MD at 15:11 EDT Tel , Service support , Assessment & Plan Assessment/Plan (1) Pneumonia due to COVID-19 virus: (2) Hypoxia: PLAN: The patient is an 80 y/o F w/ PMHx: Metastatic Lung CA w/ chronic pancytopenia following w/ Dr. Bean, Chronic COPD w/ former tobacco use, Anxiety and Depression, CKD stage ? IV, Diabetes mellitus type II who presents to the [facility] ED on 11/11/20 with history of recently traveling to [facility] with several family members and unfortunately one of the family members became Covid positive following close interactions with a grandfather who was hospitalized with Covid resulting in several members becoming ill with patient noting initial onset of fevers the prior Tuesday with diagnosis of Covid the prior Tuesday with additionally body aches, fatigue, malaise, confusion, diarrhea, poor appetite but no specific nausea or emesis and eventually asymptomatic hypoxia with significant confusion prompting family to refer patient to the ED. 1. Acute Encephalopathy secondary to Acute Hypoxia secondary to Acute Bilateral Pneumonia secondary to Acute Viral Syndrome, COVID-19: Will admit to the PCU, maintain on precautions, will maintain on oxygen with wean as tolerated to room air, given abx therapy in the ED, will hold on continuation pending work-up as noted, PRN albuterol, HOB, IS parameters w/ pending sputum cultures, respiratory viral panel and urine antigens, given renal disease with CHETAN will defer CTPA with noted elevated D-dimer and will obtain BL LE duplex US in interim with initiation heparin drip upon obtained, obtain procalcitonin, CRP, CPK, Ferritin, LDH, trop and BNP, continue supportive care including q 2 hour turning including prone given no prone bed availability and judicious hydration, closely monitor for worsening status for ARDS and multiorgan failure, will consult Infectious disease, will initiate and continue IV decadron x 10 doses, given presentation will also initiate IV remdesivir but defer to discretion of Infectious disease. 2. Acute kidney injury on CKD stage IV: Secondary to likely recent GI losses secondary to #1. Admission BUN/Cr 43/3.25, prior baseline creatinine noted to be more recently 2.4-2.6, last noted 09/08/19 2.44, has been elevated during acute presentations. Will hydrate, hold nephrotoxic medications and repeat chemistry in AM. If no improvement would plan FeNa assessment. 3. Metastatic lung carcinoma status post radiation w/ pancytopenia: Per report metastatic disease to the liver, patient following with Dr. Bean, ongoing outpatient treatments including infusions per her report with next due approximately 1 week, will continue closely monitor and treat as noted above #1, likely will need to be referred, magnesium and phosphorus level requested. 4. Hypertension: Continue home regimen including Coreg, Norvasc with hold on patient home benazepril given CHETAN as noted and specifically hold parameters given low blood pressure initially upon ED presentation, PRN hydralazine. 5. Hyperlipidemia: Continue home statin regimen. 6. History CVA: Most recent MRI with tiny foci of acute ischemic events in the left frontal and parietal lobe with unremarkable 30-day monitor with echocardiogram with preserved EF 55%, stage I diastolic dysfunction, will continue patient home aspirin, Plavix, statin therapy, hypertensive regimen except holds as noted as well as diabetic regimen with hold on oral regimens with insulin sliding scale in interim. 7. Anxiety and depression: We will continue patient home for vilazodone, trazodone, BuSpar regimen. 8. Diabetes mellitus type II: Hold oral home regimen, ADA diet if able to tolerate otherwise will transition to clears, accu checks w/ ISS. 9. DVT prophylaxis: SCDs, heparin drip as noted pending duplex ultrasound. 10. CODE status: Patient RONAK is her daughter and living will is currently in place. Given improvement, appropriate orientation x > 4, discussed CODE status at length including difference between FULL code, DNR-CCA and DNR-CC status. Following discussions about the differences in these status, requested continued DNR-CCA, no intubation status. Amenable to high flow and BIPAP if needed. Advanced Care Planning Face to Face Time: 16 minutes. Charges/Coding Visit Charges Inpatient E&M: 11500 Init Hosp L3 Procedures Hospitalists Procedures: 92770 Advncd Care Plan 30 Min
--- NOTE | 2020-11-11 20:19 | VDLE_ITS ---
Reason For Study: ELEVATED D-DIMER RIGHT LEFT GSV IS COMPRESSIBLE. GSV IS COMPRESSIBLE. CFV IS COMPRESSIBLE. CFV IS COMPRESSIBLE. FV IS COMPRESSIBLE. FV IS COMPRESSIBLE. POP V IS COMPRESSIBLE. POP V IS COMPRESSIBLE. T/P TRUCNK IS COMPRESSIBLE. T/P TRUCNK IS COMPRESSIBLE. PTV IS COMPRESSIBLE. PTV IS COMPRESSIBLE. PER V IS COMPRESSIBLE. PER V IS COMPRESSIBLE. Procedure This is a venous duplex using B-mode, color flow and spectral Doppler. Exam performed portable in patient room. The exam was abbreviated due to the COVID 19 protocol. The exam was diagnostic. A preliminary report was called and/or faxed to [facility]. VL/Venous Duplex US - Viral Extrem Interpretation Summary No evidence for acute deep venous thrombosis bilateral lower extremities with p atent and compressible bilateral great saphenous veins. Covid 19 protocol Ordering Physician: Ivette Frias Referring Physician: Chaparrita Albrecht Performed By: Yana Ramirez, EVELIN, RVT
[2020-11-11] MEDS: 0.9% Normal Saline 1,000 ML 100 ML IV (21:16)
[2020-11-11 21:49] LABS: International Normalized Ratio 1.1; Prothrombin Time (Protime)PT. 13.6 SECONDS (11.7-14.9)
[2020-11-11 21:50] LABS: Partial Thromboplast Time 34.9 Seconds (24.1-36.2)
[2020-11-11 21:58] LABS: AST(SGOT) 16 U/L (15-37); Alanine Aminotransfer ALT/SGPT 12 U/L (13-56); Albumin, Serum 2.2 g/dL (3.2-5.0); Alkaline Phosphatase 56 U/L (45-117); Bilirubin, Direct < 0.05 mg/dL (0.00-0.30); Ferritin 86 ng/mL (8-252); Globulin 3.5 g/dL (2.2-4.2); LDH 232 U/L (84-246); Magnesium 1.9 mg/dL (1.6-2.6); Phosphorus 4.4 mg/dL (2.5-4.9); Protein, Total 5.7 g/dL (6.4-8.2)
[2020-11-11] MEDS: Carvedilol 12.5 MG Tablet PO (21:58)
[2020-11-11] MEDS: traZODone 100 MG Tablet PO (21:58)
[2020-11-11] MEDS: busPIRone 5 MG Tablet 10 MG PO (21:58)
[2020-11-11 22:01] LABS: Procalcitonin 2.36 ng/mL (0.00-0.09)
[2020-11-11] MEDS: Insulin Lispro 100 UNIT/ML INSULN.PEN SC (22:39)
[2020-11-11] MEDS: Heparin Injection (Vial) 5,000 UNIT/ML VIAL 4500 UNIT IV (22:47)
[2020-11-11] MEDS: HEPARIN/D5w 25,000 UNITS 25,000 UNITS/250 ML IV.SOLN. 10 UNITS IV (22:53)
[2020-11-11 23:11] LABS: Bedside Glucose 320 mg/dL (70-110)
[2020-11-12] VITALS (11 sets, daily range): BP systolic 141–154; BP diastolic 68–74; PULSE 64–83; RESP 18–20; TEMP 36.3–37; O2SAT 88–98
[2020-11-12 05:27] LABS: Absolute Lymphocyte Count 0.18 X10^3/uL (0.83-4.51); Absolute Neutrophil Count 1.1 X10^3/uL (2.0-7.7); Hemoglobin 7.9 g/dL (12.0-15.0); Lymphocyte # 0.18 X10^3/ul (0.83-4.51); Mean Corp Hgb Conc 31.6 g/dL (32-36); Mean Corpuscular Hgb 29.3 pg (27.0-32.0); Mean Corpuscular Volume 92.6 fL (81-99); Mean Platelet Vol. 11.4 fl (6.2-12.0); Monocyte# 0.17 X10^3/uL; Monocyte% 11.3 % (0-10); NRBC Flagged by Analyzer 0 % (0-5); Neutrophil # 1.13 X10^3/uL (2.7-7.7); Neutrophil % 75.4 % (47-70); POSITIVE DIFFERENTIAL YES; Platelet Count 121 K/mm3 (150-450); RBC Distribution Width CV 12.5 % (11.6-14.6)
[2020-11-12 05:35] LABS: Differential Indicated SCAN CRITERIA MET
[2020-11-12 05:36] LABS: White Blood Count 1.5 K/mm3 (4.4-11.0)
[2020-11-12 05:52] LABS: ALB/GLOB Ratio 0.7 RATIO (0.9-2.4); AST(SGOT) 15 U/L (15-37); Alanine Aminotransfer ALT/SGPT 14 U/L (13-56); Albumin, Serum 1.9 g/dL (3.2-5.0); Alkaline Phosphatase 46 U/L (45-117); Anion Gap 9 (5-15); BUN 46 mg/dL (7-18); BUN/Creat Ratio 13.7 RATIO (10-20); Calcium,Total 7.3 mg/dL (8.5-10.1); Chloride 108 mmol/L (98-107); Creatinine, Serum 3.35 mg/dL (0.55-1.02); EST Glomerular Filtration Rate 14 mL/min (>60); Est Glom Filt Rate - Afr Amer 17 mL/min (>60); Estimated Creatinine Clearance 10.71 ml/min; Globulin 2.9 g/dL (2.2-4.2); Glucose 199 mg/dL (74-106); Potassium 3.9 mmol/L (3.5-5.1); Protein, Total 4.8 g/dL (6.4-8.2); Sodium Level 139 mmol/L (136-145)
[2020-11-12 06:03] LABS: Partial Thromboplast Time > 250.0 Seconds (24.1-36.2)
[2020-11-12] MEDS: busPIRone 5 MG Tablet 10 MG PO ×3 (06:16→22:29)
[2020-11-12] MEDS: Insulin Lispro 100 UNIT/ML INSULN.PEN SC ×4 (06:17→22:20)
[2020-11-12] MEDS: 0.9% Normal Saline 1,000 ML 100 ML IV ×2 (06:32→17:20)
[2020-11-12 06:46] LABS: Bedside Glucose 165 mg/dL (70-110)
[2020-11-12] MEDS: amLODIPine 10 MG Tablet PO (10:41)
[2020-11-12] MEDS: Aspirin 81 MG TAB.CHEW PO (10:41)
[2020-11-12] MEDS: Pantoprazole Sodium 20 MG Tablet PO (10:41)
[2020-11-12] MEDS: Carvedilol 12.5 MG Tablet PO ×2 (10:41→21:54)
[2020-11-12] MEDS: Clopidogrel Bisulfate 75 MG Tablet PO (10:41)
[2020-11-12] MEDS: Mirabegron 50 MG TAB.ER.24H PO (10:41)
[2020-11-12] MEDS: Atorvastatin Calcium 20 MG Tablet PO (10:41)
[2020-11-12] MEDS: dexAMETHasone 4 MG/ML Vial 6 MG IV (10:42)
[2020-11-12] MEDS: 0.9% Saline Lock 10 ML Syringe IV (10:42)
--- NOTE | 2020-11-12 12:15 | CASEMGMT ---
RN CM BATCHER OPERATOR CM to room to meet with patient for initial transition planning/care coordination assessment. ARSENIO RAMIREZ introduced self and role at [facility].? Pt voices understanding and consents to assessment at this time.? Pt resting in bed in no distress at this time.? Pt is A/O at this time and answers all questions appropriately.?? Care providers, pharmacy, and demographics verified/updated at this time. PCP: Dr Albrecht Specialists: Dr Bean--oncology, Dr Stephens--nephrology, Dr Crouch--pulmonology, Dr Guerrero-neurology, Dr Cormier-cardiology Preferred Pharmacy: [facility] Retail Insurance: [employer] Prescription Benefit:? Yes Living Will/HPOA:? Has both LW and Healthcare POOlivia, who is her daughter, Kate Singh LNOK: daughters, Kate (HPOA) and Марина, and 2 other daughters. Living Arrangements: Dtr, Марина, lives w/her in a one-story condo. Independent w/ADL's. Pt states she does her own laundry. Dtr does cleaning and most meal preparation. Transportation: Pt drives short distances only. Family assists. DME: ?States has the following DME:? grab bars, RTS, glucometer. Has/but does not use: shower chair, cane, walker, W/C . Dtr just ordered oxygen for her through [facility] per pt. Pt does not know how many L/M. Pt states no need for further DME at this time.? HHC/SNF: No hx of SNF. Has had [facility] HHC in the past. Pt denies need for HHC. She states she was going to [facility] 3 x's/week prior to hospitalization. Pt wishes to return home and states has no concerns with going home at time of discharge.? CM to follow for any increase in home oxygen needs and any further discharge planning/needs.? Pt voices no further concerns/needs at this time.? Advised pt to ask for CM if any further questions/concerns/needs arise.? Voices understanding. PLAN: ?Home w/family support and discharge plans in place. CM to follow for any O2 needs. Kelly GORDON RN, CM
[2020-11-12 12:35] LABS: Bedside Glucose 182 mg/dL (70-110)
--- NOTE | 2020-11-12 14:16 | PN.HOSP_ITS ---
Subjective Subjective Patient seen and examined. She has no complaints and says the shortness of breath is better. Review of systems is otherwise negative. Objective Data Objective Data Vital Signs: Vital Signs Temp Pulse Resp BP Pulse Ox 97.4 F L 72 20 H 147/70 H 96 11/12/20 10:00 11/12/20 10:00 11/12/20 10:00 11/12/20 10:00 11/12/20 03:09 Oxygen Flow Rate (L/min) 2 Oxygen Delivery Method Nasal Cannula Weight: 150 lb 12.739 oz Body Mass Index (BMI) 26.2 Intake & Output: Intake and Output for Last 24 Hours 11/10/20 11/11/20 11/12/20 23:59 23:59 23:59 Intake Total 1555 / 1555 1000.00 / 1000.00 Balance 1555 / 1555 1000.00 / 1000.00 Lab / Micro Data Result Diagrams: 11/12/20 05:04 11/12/20 05:04 Labs: Laboratory Results - last 24 hr 11/11/20 14:55: WBC 2.5 L, RBC 3.22 L, Hgb 9.2 L, Hct 29.4 L, MCV 91.3, MCH 28.6, MCHC 31.3 L, RDW Std Deviation 41.8, RDW Coeff of Dee 12.4, Plt Count 135 L, MPV 10.8, Immature Gran % (Auto) 1.200 H, Neut % (Auto) 77.5 H, Lymph % (Auto) 6.8 L, Green % (Auto) 14.1 H, Eos % (Auto) 0.0, Baso % (Auto) 0.4, Absolute Neuts (auto) 1.9 L, Absolute Lymphs (auto) 0.17 L, Nucleated RBC % 0, Differential Comment SEE COMMENT, Diff Path Review May foll, Platelet Estimate SLT DEC, RBC Morphology N CHROM, Hypochromasia RARE, Anisocytosis RARE, Macrocytosis RARE 11/11/20 14:55: D-Dimer Quant (PE/DVT) 3.42 H* 11/11/20 14:55: Sodium 139, Potassium 4.1, Chloride 105, Carbon Dioxide 24.0, Anion Gap 10, BUN 43 H, Creatinine 3.25 H, Estim Creat Clear Calc 11.04, Est GFR (MDRD) Af Amer 18 L, Est GFR (MDRD) Non-Af 15 L, BUN/Creatinine Ratio 13.2, Glucose 171 H, Calcium 8.1 L, Troponin I High Sens 26.1 11/11/20 14:55: B-Natriuretic Peptide 227.3 H 11/11/20 14:55: Lactic Acid 1.0 11/11/20 19:25: PT 13.6, INR 1.1, APTT 34.9 11/11/20 21:08: Phosphorus 4.4, Magnesium 1.9, Ferritin 86, Total Bilirubin 0.20, Direct Bilirubin < 0.05, AST 16, ALT 12 L, Alkaline Phosphatase 56, Lactate Dehydrogenase 232, C-React Prot Ext Range 107.00 H, Total Protein 5.7 L, Albumin 2.2 L, Globulin 3.5 11/11/20 21:08: Procalcitonin 2.36 H 11/11/20 22:38: POC Glucose 320 H 11/12/20 05:04: WBC 1.5 L, RBC 2.70 L, Hgb 7.9 L, Hct 25.0 L, MCV 92.6, MCH 29.3, MCHC 31.6 L, RDW Std Deviation 42.0, RDW Coeff of Dee 12.5, Plt Count 121 L, MPV 11.4, Immature Gran % (Auto) 1.300 H, Neut % (Auto) 75.4 H, Lymph % (Auto) 12.0 L, Green % (Auto) 11.3 H, Eos % (Auto) 0.0, Baso % (Auto) 0.0, Absolute Neuts (auto) 1.1 L, Absolute Lymphs (auto) 0.18 L, Nucleated RBC % 0, Diff Path Review August11/12/20 05:04: Sodium 139, Potassium 3.9, Chloride 108 H, Carbon Dioxide 22.0, Anion Gap 9, BUN 46 H, Creatinine 3.35 H, Estim Creat Clear Calc 10.71, Est GFR (MDRD) Af Amer 17 L, Est GFR (MDRD) Non-Af 14 L, BUN/Creatinine Ratio 13.7, Glucose 199 H, Calcium 7.3 L, Total Bilirubin 0.10 L, AST 15, ALT 14, Alkaline Phosphatase 46, Total Protein 4.8 L, Albumin 1.9 L, Globulin 2.9, Albu min/Globulin Ratio 0.7 L 11/12/20 05:04: APTT > 250.0 H* 11/12/20 06:16: POC Glucose 165 H 11/12/20 12:24: POC Glucose 182 H Micro: Microbiology 11/12/20 09:50 Urine, Clean Catch Streptococcus pneumoniae Antigen (M - Final 11/12/20 09:50 Urine, Clean Catch Legionella Antigen - Final 11/11/20 Unknown Interface Orders Respiratory Panel (PCR) - Final 11/11/20 14:51 Mucosa - Nose SARS-CoV-2 Antigen (Rapid) - Final SARS-CoV-2 (COVID 19) Radiography Diagnostic Testing: Radiology Impression Chest X-Ray 11/11/20 14:59 IMPRESSION: Bilateral pneumonia, particularly lingular pneumonia. Electronically Signed: Ankur Maddox MD at 15:11 EDT Tel , Service support , Rhythm Strip Rhythm Strip: Sinus Rhythm Rate: 70 Ectopy: None Physical Exam Const alert and oriented x3 Exam Limitations: no limitations HEENT head/scalp atraumatic, moist oral mucous membranes and oropharynx normal Head and Scalp: normocephalic Eyes PERRL and EOMs intact bilaterally Neck no lymphadenopathy Resp Resp Narrative: diminished breath sounds bibasally, no wheezes or crackles. on 2L of oxygen. Cardio regular rate, regular rhythm, S1 normal heart sound, S2 normal heart sound and no murmurs GI normal to inspection, nondistended, normoactive bowel sounds, soft to palpation, non-tender and non-distended Extremity normal to inspection, full ROM and no clubbing, cyanosis or edema Peripheral Pulses: Yes pulses 2+ throughout and brachial pulses present Neuro oriented x3, CN's II-XII intact bilaterally and moves all extremities Sensorium / Orientation: awake and alert Psych affect normal Assessment & Plan Assessment/Plan (1) Hypoxia: (2) Pneumonia due to COVID-19 virus: PLAN: #Acute hypoxic respiratory insufficiency due to COVID 19 infection * patient feeling much better. Now on 2L of oxygen * on remdesivir and decadron * titrate oxygen to maintain sats >90% * patient has received covid vaccine in the past. * breathing treatment with bronchodilators * #Elevated D dimer: * couldnt have CTA due to CHETAN on CKD. * Duplex of her lower extremities pending. Will do a VQ scan on account of metastatic lung cancer. * Currently on heparin drip. * #Metastatic lung cancer * follows with oncology * stable * #Chronic pancytopenia * stable. Follow up with hematology on outpatient basis. * Hb is 7.9 and wbc is 1.5, wtih platelets of 121 * #Hypertension: on coreg and norvasc. Benazepril on hold due to Chetan on CKD. #History of CVA: stable. on aspirin, plavix and statin #Type 2 diabetes mellitus: on linagliptin. ISS. Accuchecks ACHS #Hyperlipidemia: On statin #Anxiety and depression: on vilazodone and buspar DVT prophylaxis: on lovenox Charges/Coding Visit Charges Inpatient E&M: 43064 Subs Hosp L3
[2020-11-12 15:21] LABS: Partial Thromboplast Time 84.7 Seconds (24.1-36.2)
[2020-11-12 17:30] LABS: Bedside Glucose 219 mg/dL (70-110)
[2020-11-12] MEDS: HYDROcodone Bitartrate/Apap 5/325 Tablet PO (21:54)
[2020-11-12] MEDS: traZODone 100 MG Tablet PO (21:54)
[2020-11-12 22:08] LABS: Partial Thromboplast Time 58.3 Seconds (24.1-36.2)
[2020-11-12 22:50] LABS: Bedside Glucose 267 mg/dL (70-110)
[2020-11-13] VITALS (9 sets, daily range): BP systolic 134–157; BP diastolic 67–71; PULSE 74–93; RESP 16–18; TEMP 36.2–37.6; O2SAT 93–97
[2020-11-13] MEDS: 0.9% Saline Lock 10 ML Syringe IV (00:35)
[2020-11-13] MEDS: 0.9% Normal Saline 1,000 ML 100 ML IV (02:42)
[2020-11-13 04:41] LABS: Partial Thromboplast Time 61.6 Seconds (24.1-36.2)
[2020-11-13] MEDS: busPIRone 5 MG Tablet 10 MG PO ×3 (05:46→22:18)
[2020-11-13] MEDS: HYDROcodone Bitartrate/Apap 5/325 Tablet PO ×3 (05:46→22:31)
[2020-11-13 07:16] LABS: Bedside Glucose 137 mg/dL (70-110)
[2020-11-13 09:04] LABS: Pathologist Review Reviewed
[2020-11-13 09:07] LABS: Pathologist Review Reviewed
[2020-11-13] MEDS: Aspirin 81 MG TAB.CHEW PO (09:30)
[2020-11-13] MEDS: Pantoprazole Sodium 20 MG Tablet PO (09:30)
[2020-11-13] MEDS: Mirabegron 50 MG TAB.ER.24H PO (09:30)
[2020-11-13] MEDS: Clopidogrel Bisulfate 75 MG Tablet PO (09:30)
[2020-11-13] MEDS: amLODIPine 10 MG Tablet PO (09:30)
[2020-11-13] MEDS: Carvedilol 12.5 MG Tablet PO ×2 (09:31→22:18)
[2020-11-13] MEDS: Atorvastatin Calcium 20 MG Tablet PO (09:31)
[2020-11-13] MEDS: dexAMETHasone 4 MG/ML Vial 6 MG IV (09:32)
[2020-11-13] MEDS: Insulin Lispro 100 UNIT/ML INSULN.PEN SC ×3 (11:45→22:32)
--- NOTE | 2020-11-13 11:52 | PN.HOSP_ITS ---
Subjective Subjective Patient seen and examined. She tells me that she feels much better today and feels like her breathing is improving. She has no active complaints and review of systems otherwise negative. Objective Data Objective Data Vital Signs: Vital Signs Temp Pulse Resp BP Pulse Ox 99.7 F H 88 16 137/71 H 93 11/13/20 09:19 11/13/20 09:19 11/13/20 09:19 11/13/20 09:19 11/13/20 09:19 Oxygen Flow Rate (L/min) 2 Oxygen Delivery Method Room Air Weight: 158 lb 11.725 oz Body Mass Index (BMI) 26.2 Intake & Output: Intake and Output for Last 24 Hours 11/11/20 11/12/20 11/13/20 23:59 23:59 23:59 Intake Total 1555 / 1555 3585.05 / 3585.05 / 1913. Balance 1555 / 1555 3585.05 / 3585.05 Medical Nutrition Assessment Dietitian: Nutrition Therapy Diagnosis Start: 11/12/20 10:32 Freq: Status: Active Protocol: Document 11/12/20 15:09 RMA (Rec: 11/12/20 15:10 RMA [id number]) Nutrition Malnutrition Evidence of Malnutrition Exists No Intake Problem Decreased Nutrient Needs (specify) Etiology for carbohydrate related to endocrine dysfunction Signs/Symptoms as evidenced by blood glucose 165, 320, 199 Status Active Problem Recommendation Dietitian Recommendations/Changes Will change diet to Carbohydrate-Controlled; Sodium-Restricted. Will add 120ml Glucerna shake TID w/ meals. Lab / Micro Data Result Diagrams: 11/12/20 05:04 11/12/20 05:04 Labs: Laboratory Results - last 24 hr 11/11/20 14:55: Diff Path Review Reviewed 11/12/20 05:04: Diff Path Review Reviewed 11/12/20 12:24: POC Glucose 182 H 11/12/20 15:00: APTT 84.7 H 11/12/20 17:03: POC Glucose 219 H 11/12/20 21:45: APTT 58.3 H 11/12/20 22:19: POC Glucose 267 H 11/13/20 03:46: APTT 61.6 H 11/13/20 07:02: POC Glucose 137 H Micro: Microbiology 11/12/20 09:50 Sputum, Expectorated/Coughed Gram Stain - Final 11/12/20 09:50 Urine, Clean Catch Streptococcus pneumoniae Antigen (M - Final 11/12/20 09:50 Urine, Clean Catch Legionella Antigen - Final 11/11/20 Unknown Interface Orders Respiratory Panel (PCR) - Final 11/11/20 14:51 Mucosa - Nose SARS-CoV-2 Antigen (Rapid) - Final SARS-CoV-2 (COVID 19) Radiography Diagnostic Testing: Radiology Impression Venous Doppler Study 11/11/20 20:19 Interpretation Summary No evidence for acute deep venous thrombosis bilateral lower extremities with patent and compressible bilateral great saphenous veins. Covid 19 protocol Ordering Physician: Ivette Frias Referring Physician: Chaparrita Albrecht Performed By: Yana Ramirez, EVELIN, RVT Rhythm Strip Rhythm Strip: Sinus Rhythm Rate: 70 Ectopy: None Physical Exam Const alert, oriented x3 and no apparent distress Exam Limitations: no limitations HEENT head/scalp atraumatic, moist oral mucous membranes and oropharynx normal Head and Scalp: normocephalic Eyes PERRL and EOMs intact bilaterally Neck no lymphadenopathy Resp Resp Narrative: diminished breath sounds bibasally, no wheezes or crackles. on 2L of oxygen. Cardio regular rate, regular rhythm, S1 normal heart sound, S2 normal heart sound and no murmurs GI normal to inspection, nondistended, normoactive bowel sounds, soft to palpation, non-tender and non-distended Extremity normal to inspection, full ROM and no clubbing, cyanosis or edema Peripheral Pulses: Yes pulses 2+ throughout Skin no rashes or lesions noted Neuro oriented x3, CN's II-XII intact bilaterally and moves all extremities Sensorium / Orientation: awake and alert Psych affect normal Assessment & Plan Assessment/Plan (1) Hypoxia: (2) Pneumonia due to COVID-19 virus: PLAN: #Acute hypoxic respiratory insufficiency due to COVID 19 infection * patient remains on 2L of oxygen and feels much better. * on remdesivir and decadron * titrate oxygen to maintain sats >90% * patient has received covid vaccine in the past. * breathing treatment with bronchodilators * #Elevated D dimer: * couldnt have CTA due to CHETAN on CKD. * Duplex of her lower extremities done was negative for any evidence of DVT * will dc heparin drip and start on low dose eliquis for 2 weeks in light of hypercoagulability with covid and elevated D dimer * #Metastatic lung cancer * follows with oncology * stable * #Chronic pancytopenia * stable. Follow up with hematology on outpatient basis. #CHETAN on CKD: stable. Labs pending today #Hypertension: on coreg and norvasc. Benazepril on hold due to Chetan on CKD. #History of CVA: stable. on aspirin, plavix and statin #Type 2 diabetes mellitus: on linagliptin. ISS. Accuchecks ACHS #Hyperlipidemia: On statin #Anxiety and depression: on vilazodone and buspar DVT prophylaxis: start on low dose eliquis 2.5mg bid x 2 weeks for prophylaxis Charges/Coding Visit Charges Inpatient E&M: 31203 Subs Hosp L2
[2020-11-13 12:36] LABS: Bedside Glucose 173 mg/dL (70-110)
[2020-11-13 12:55] LABS: Absolute Lymphocyte Count 0.23 X10^3/uL (0.83-4.51); Absolute Neutrophil Count 4.4 X10^3/uL (2.0-7.7); Basophil# 0.01 X10^3/uL; Basophil% 0.2 % (0-1); Hematocrit 28.4 % (37-47); Hemoglobin 9.1 g/dL (12.0-15.0); Lymphocyte # 0.23 X10^3/ul (0.83-4.51); Lymphocyte % 4.3 % (19-41); Mean Corpuscular Hgb 29.6 pg (27.0-32.0); Mean Corpuscular Volume 92.5 fL (81-99); Mean Platelet Vol. 12.1 fl (6.2-12.0); Monocyte# 0.66 X10^3/uL; Monocyte% 12.3 % (0-10); NRBC Flagged by Analyzer 0 % (0-5); Neutrophil # 4.44 X10^3/uL (2.7-7.7); Neutrophil % 82.6 % (47-70); POSITIVE DIFFERENTIAL YES; Platelet Count 145 K/mm3 (150-450); RBC Distribution Width CV 12.6 % (11.6-14.6); RBC Distribution Width SD 41.9 fl (35.1-43.9); Red Blood Count 3.07 M/mm3 (4.2-5.4); White Blood Count 5.4 K/mm3 (4.4-11.0)
[2020-11-13 13:01] LABS: Differential Indicated SCAN CRITERIA MET
[2020-11-13 13:03] LABS: Anion Gap 10 (5-15); BUN 61 mg/dL (7-18); BUN/Creat Ratio 17.4 RATIO (10-20); Calcium,Total 6.9 mg/dL (8.5-10.1); Chloride 106 mmol/L (98-107); Creatinine, Serum 3.51 mg/dL (0.55-1.02); EST Glomerular Filtration Rate 13 mL/min (>60); Est Glom Filt Rate - Afr Amer 16 mL/min (>60); Estimated Creatinine Clearance 10.22 ml/min; Glucose 159 mg/dL (74-106); Potassium 4.2 mmol/L (3.5-5.1); Sodium Level 135 mmol/L (136-145)
--- NOTE | 2020-11-13 14:18 | CASEMGMT ---
Palliative screening tool completed for [facility]. Patient meets criteria for palliative consult. Hospitalist update, no referral at this time.
[2020-11-13 14:21] LABS: Magnesium 1.7 mg/dL (1.6-2.6)
[2020-11-13 17:30] LABS: Bedside Glucose 219 mg/dL (70-110)
[2020-11-13] MEDS: traZODone 100 MG Tablet PO (22:18)
[2020-11-13 22:45] LABS: Bedside Glucose 317 mg/dL (70-110)
[2020-11-14] VITALS (11 sets, daily range): BP systolic 142–156; BP diastolic 64–79; PULSE 66–88; RESP 18; TEMP 36.6–37; O2SAT 95–98
[2020-11-14] MEDS: 0.9% Saline Lock 10 ML Syringe IV (00:39)
[2020-11-14 05:34] LABS: Absolute Lymphocyte Count 0.25 X10^3/uL (0.83-4.51); Absolute Neutrophil Count 3.3 X10^3/uL (2.0-7.7); Hematocrit 27.8 % (37-47); Hemoglobin 8.8 g/dL (12.0-15.0); Lymphocyte # 0.25 X10^3/ul (0.83-4.51); Lymphocyte % 5.9 % (19-41); Mean Corp Hgb Conc 31.7 g/dL (32-36); Mean Corpuscular Hgb 28.5 pg (27.0-32.0); Mean Platelet Vol. 11.4 fl (6.2-12.0); Monocyte# 0.62 X10^3/uL; Monocyte% 14.7 % (0-10); NRBC Flagged by Analyzer 0 % (0-5); Neutrophil # 3.25 X10^3/uL (2.7-7.7); POSITIVE DIFFERENTIAL YES; Platelet Count 174 K/mm3 (150-450); RBC Distribution Width CV 12.7 % (11.6-14.6); RBC Distribution Width SD 41.8 fl (35.1-43.9); Red Blood Count 3.09 M/mm3 (4.2-5.4); White Blood Count 4.2 K/mm3 (4.4-11.0)
[2020-11-14 06:03] LABS: Partial Thromboplast Time 30.6 Seconds (24.1-36.2)
[2020-11-14 06:06] LABS: Differential Indicated SCAN CRITERIA MET
[2020-11-14 06:26] LABS: Anion Gap 11 (5-15); BUN 73 mg/dL (7-18); Calcium,Total 7.2 mg/dL (8.5-10.1); Chloride 106 mmol/L (98-107); Creatinine, Serum 4.06 mg/dL (0.55-1.02); EST Glomerular Filtration Rate 11 mL/min (>60); Est Glom Filt Rate - Afr Amer 14 mL/min (>60); Estimated Creatinine Clearance 8.84 ml/min; Glucose 185 mg/dL (74-106); Potassium 4.3 mmol/L (3.5-5.1); Sodium Level 136 mmol/L (136-145)
[2020-11-14 06:36] LABS: Differential Comment SCANNED
[2020-11-14] MEDS: busPIRone 5 MG Tablet 10 MG PO ×3 (06:57→22:02)
[2020-11-14] MEDS: Insulin Lispro 100 UNIT/ML INSULN.PEN SC ×4 (06:58→22:07)
[2020-11-14 07:05] LABS: Bedside Glucose 155 mg/dL (70-110)
[2020-11-14 12:34] LABS: Pathologist Review Reviewed
[2020-11-14] MEDS: HYDROcodone Bitartrate/Apap 5/325 Tablet PO ×2 (12:39→22:02)
[2020-11-14] MEDS: 0.9% Normal Saline 1,000 ML 75 ML IV (12:41)
[2020-11-14] MEDS: Aspirin 81 MG TAB.CHEW PO (12:42)
[2020-11-14] MEDS: dexAMETHasone 4 MG/ML Vial 6 MG IV (12:43)
[2020-11-14] MEDS: Carvedilol 12.5 MG Tablet PO ×2 (12:43→22:01)
[2020-11-14] MEDS: amLODIPine 10 MG Tablet PO (12:44)
[2020-11-14] MEDS: Atorvastatin Calcium 20 MG Tablet PO (12:44)
[2020-11-14] MEDS: Clopidogrel Bisulfate 75 MG Tablet PO (12:45)
[2020-11-14] MEDS: Pantoprazole Sodium 20 MG Tablet PO (12:45)
--- NOTE | 2020-11-14 12:45 | NURSING ---
Patient refused lunch I don't have an appetite. Ensure given to patient. Patient drank.
--- NOTE | 2020-11-14 13:00 | NURSING ---
Patient received am medications late this shift. Medications not readily available on unit (not in room, not in med room isolation drawer, not located in med inbox on unit). Pharmacy called multiple times to acquire. This RN received medication and administered upon receipt.
[2020-11-14] MEDS: Mirabegron 50 MG TAB.ER.24H PO (13:27)
[2020-11-14 13:41] LABS: Bedside Glucose 170 mg/dL (70-110)
--- NOTE | 2020-11-14 14:20 | CASEMGMT ---
Green sheet on chart for increased home oxygen need. Pt was set up with [facility] 2L continuous but was not able to have it delivered prior to hospital admission. Benito CESAR CM
--- NOTE | 2020-11-14 14:53 | PN.HOSP_ITS ---
Subjective Subjective Patient seen and examined. She had an uneventful night and has no complaints this morning she feels well and review of systems otherwise negative. She has remained hemodynamically stable. Patient's creatinine noted to have trended up today. She admits to not eating and drinking well. Creatinine is up to 4.06 t mika. She remains on her baseline 2 L of oxygen. Objective Data Objective Data Vital Signs: Vital Signs Temp Pulse Resp BP Pulse Ox 98.2 F 88 18 142/64 H 95 11/14/20 12:48 11/14/20 12:48 11/14/20 12:48 11/14/20 12:48 11/14/20 12:48 Oxygen Flow Rate (L/min) 2 Oxygen Delivery Method Nasal Cannula Weight: 159 lb 6.307 oz Body Mass Index (BMI) 26.2 Intake & Output: Intake and Output for Last 24 Hours 11/12/20 11/13/20 11/14/20 23:59 23:59 23:59 Intake Total 3585.05 / 3585.05 2114.20 / 2114.20 510 / 510 Balance 3585.05 / 3585.05 2113. / 2113. 510 / 510 Medical Nutrition Assessment Dietitian: Nutrition Therapy Diagnosis Start: 11/12/20 10:32 Freq: Status: Active Protocol: Document 11/12/20 15:09 RMA (Rec: 11/12/20 15:10 RMA [id number]) Nutrition Malnutrition Evidence of Malnutrition Exists No Intake Problem Decreased Nutrient Needs (specify) Etiology for carbohydrate related to endocrine dysfunction Signs/Symptoms as evidenced by blood glucose 165, 320, 199 Status Active Problem Recommendation Dietitian Recommendations/Changes Will change diet to Carbohydrate-Controlled; Sodium-Restricted. Will add 120ml Glucerna shake TID w/ meals. Lab / Micro Data Result Diagrams: 11/14/20 05:00 11/14/20 05:00 Labs: Laboratory Results - last 24 hr 11/13/20 17:19: POC Glucose 219 H 11/13/20 22:14: POC Glucose 317 H 11/14/20 05:00: APTT 30.6 11/14/20 05:00: WBC 4.2 L, RBC 3.09 L, Hgb 8.8 L, Hct 27.8 L, MCV 90.0, MCH 28.5 , MCHC 31.7 L, RDW Std Deviation 41.8, RDW Coeff of Dee 12.7, Plt Count 174, MPV 11.4, Immature Gran % (Auto) 2.400 H, Neut % (Auto) 77.0 H, Lymph % (Auto) 5.9 L , [place] % (Auto) 14.7 H, Eos % (Auto) 0.0, Baso % (Auto) 0.0, Absolute Neuts (auto) 3.3, Absolute Lymphs (auto) 0.25 L, Nucleated RBC % 0, Differential Comment SCANNED, Diff Path Review Reviewed 11/14/20 05:00: Sodium 136, Potassium 4.3, Chloride 106, Carbon Dioxide 19.0 L, Anion Gap 11, BUN 73 H, Creatinine 4.06 H, Estim Creat Clear Calc 8.84, Est GFR (MDRD) Af Amer 14 L, Est GFR (MDRD) Non-Af 11 L, BUN/Creatinine Ratio 18.0, Glucose 185 H, Calcium 7.2 L 11/14/20 06:55: POC Glucose 155 H 11/14/20 13:26: POC Glucose 170 H Micro: Microbiology 11/12/20 09:50 Sputum, Expectorated/Coughed Gram Stain - Final 11/12/20 09:50 Sputum, Expectorated/Coughed Respiratory Culture - Final 11/11/20 14:55 Blood Culture (Wb) - Anticubital Left Blood Culture - Preliminary No growth in 48 hours. 11/12/20 09:50 Urine, Clean Catch Streptococcus pneumoniae Antigen (M - Final 11/12/20 09:50 Urine, Clean Catch Legionella Antigen - Final 11/11/20 Unknown Interface Orders Respiratory Panel (PCR) - Final 11/11/20 14:51 Mucosa - Nose SARS-CoV-2 Antigen (Rapid) - Final SARS-CoV-2 (COVID 19) Rhythm Strip Rhythm Strip: Sinus Rhythm Rate: 70 Ectopy: None Physical Exam Const alert, oriented x3 and no apparent distress Exam Limitations: no limitations HEENT head/scalp atraumatic, moist oral mucous membranes and oropharynx normal Head and Scalp: normocephalic Eyes PERRL and EOMs intact bilaterally Neck no lymphadenopathy Resp Resp Narrative: mildly diminished breath sounds bibasally, no wheezes or crackles. on 2L of oxygen. Cardio regular rate, regular rhythm, S1 normal heart sound, S2 normal heart sound and no murmurs GI normal to inspection, nondistended, normoactive bowel sounds, soft to palpation, non-tender and non-distended Extremity normal to inspection, full ROM and no clubbing, cyanosis or edema Skin no rashes or lesions noted Neuro oriented x3, CN's II-XII intact bilaterally and moves all extremities Sensorium / Orientation: awake and alert Psych affect normal Assessment & Plan Assessment/Plan (1) Hypoxia: (2) Pneumonia due to COVID-19 virus: PLAN: # COVID 19 infection * patient remains on 2L of oxygen which is her baseline oxygen requirement at home * on remdesivir and decadron * titrate oxygen to maintain sats >90% * patient has received covid vaccine in the past. * breathing treatment with bronchodilators * #Elevated D dimer: * couldnt have CTA due to CHETAN on CKD. * Duplex of her lower extremities done was negative for any evidence of DVT * I discussed with patient's daughter Kate Singh MD about the risks vs benefits of putting patient on eliquis in light of her elevated D dimer and increased of thromboembolic phenomenon from covid. I did explain to her daughter that I was concerned about patient's increased risk of bleeding bowel sounds aspirin and Plavix as well as an oral anticoagulant and thought it was best to keep her off of this. Patient's daughter agreed and so oral anticoagulant will not be started. * #Metastatic lung cancer * follows with oncology; wears 2L of oxygen at home. * stable * #Chronic pancytopenia * stable. Follow up with hematology on outpatient basis. #CHETAN on CKD: * Cr has trended up to 4.06 today. Nephrology consulted, and patient started on gentle hydration with IVF. * per nephrology, this may be due to ATN from decreased oral intake. #Hypertension: on coreg and norvasc. Benazepril on hold due to Chetan on CKD. #History of CVA: stable. on aspirin, plavix and statin #Type 2 diabetes mellitus: on linagliptin. ISS. Accuchecks ACHS #Hyperlipidemia: On statin #Anxiety and depression: on vilazodone and buspar DVT prophylaxis: SCDs Disposition: for likely DC tomorrow. Charges/Coding Visit Charges Inpatient E&M: 27688 Subs Hosp L2
--- NOTE | 2020-11-14 14:53 | CON.PCM.RE_ITS ---
Assessment & Plan Assessment/Plan (1) CHETAN (acute kidney injury): PLAN: I suspect the patient has ischemic ATN. The patient presented with several days of poor oral intake along with nausea, vomiting and diarrhea. The patient was also taking ARB prior to admission. Benazepril has been put on hold. Her appetite is still poor. She was not able to eat much breakfast or lunch today. I would recommend keeping the patient admitted for IV fluid since I do not think that she can keep up with volume repletion on her own at this point. I will check urinalysis and urine indices. I will hold off on checking renal ultrasound as I have low suspicion for obstruction. I will change IV fluid to LR since she has metabolic acidosis. We will recheck renal function and volume status tomorrow. If her renal function stabilizes over the next day or 2, the patient can then be discharged and followed as outpatient. (2) Chronic kidney disease, stage 4 (severe): PLAN: The patient has known focal segmental glomerulosclerosis which was treated with 6 months course of cyclosporine between April until September 2020. She did not respond well in terms of proteinuria. She still has nephrotic range proteinuria. However, her renal function stabilized with serum creatinine of around 2.7 at baseline. (3) Hypertension: PLAN: BP is reasonably controlled off of benazepril. I agree with holding ARB because of CHETAN. Continue to monitor BP. (4) Pneumonia due to COVID-19 virus: PLAN: Treatment as per hospital medicine service. The patient is clinically improving. 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 The patient was treated between April until September 2019 with cyclosporine. The patient did not respond optim ally to treatment as her urine protein remains in nephrotic range. However, serum creatinine stabilized at around 2.7 mg/dL, so we decided to stop immunosuppression due to lack of response and treat her nonspecifically with RAAS inhibition. The patient was admitted to the hospital on 11/11/2020 with acute hypoxic respiratory failure. The patient was diagnosed with Covid infection on 11/07/2020 with fever starting on 11/05/2020. The patient is being treated for superimposed bacterial pneumonia as well. Prior to admission, the patient had been on benazepril because of proteinuria. She did take this medication up until the time of admission. Nephrology is asked to see the patient because of rising serum creatinine. The patient was admitted with serum creatinine 3.25 mg/dL which has increased daily to 4.06 mg/dL today. The patient denies increasing shortness of breath. In fact, her dyspnea has improved since admission. However, she still has severe anorexia and occasional nausea. The patient has chronic bilateral lower extremity edema which has not increased in severity since admission. She denies gross hematuria or dysuria. She has not been taking NSAIDs prior to admission. [facility] Medical History (Updated 11/14/20 @ 15:[address] 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 Type 2 diabetes mellitus Home Medications trazodone 100 mg PO QHS 04/20/16 [History Last Taken 11/10/20] amlodipine 10 mg PO DAILY 03/21/19 [History Last Taken 11/11/20] atorvastatin 20 mg PO DAILY 03/21/19 [History Last Taken 11/10/20] doxycycline hyclate 20 mg PO BID 03/21/19 [History Last Taken 11/11/20] mirabegron 50 mg PO QHS 03/21/19 [History Last Taken 11/10/20] omeprazole 20 mg PO DAILY 03/21/19 [History Last Taken 11/10/20] buspirone 5 mg tablet 10 mg PO TID tab 05/06/20 [History Last Taken 11/11/20] clopidogrel 75 mg tablet 75 mg PO DAILY 05/06/20 [History Last Taken 11/11/20] lactobacillus combination no.9 4 billion cell capsule 4,000 mmu cells PO DAILY 05/06/20 [History Last Taken Unknown] linagliptin 5 mg tablet 5 mg PO DAILY 05/06/20 [History Last Taken 11/11/20] benazepril 20 mg tablet 10 mg PO DAILY tab 05/07/20 [History Last Taken 11/11/20] carvedilol 25 mg tablet 12.5 mg PO BID tab 05/07/20 [History Last Taken 11/11/20] cholecalciferol (vitamin D3) 125 mcg (5,000 unit) capsule 125 mcg PO DAILY 05/07/20 [History Last Taken Unknown] vilazodone 40 mg tablet 40 mg PO DAILY 05/07/20 [History Last Taken Unknown] aspirin 325 mg PO DAILY 11/11/20 [History Last Taken 11/11/20] hydrocodone-acetaminophen 0.5 tab PO TID PRN PRN 11/11/20 [History Last Taken Unknown] Allergy/AdvReac Type Severity Reaction Status Date / Time clarithromycin [From Biaxin] Allergy Severe Vomiting Verified 10/14/20 10:16 metaxalone [From Skelaxin] Allergy Severe Hives Verified 10/14/20 10:16 morphine AdvReac Shortness Verified 10/14/20 10:16 of breath Family History Mother Brain aneurysm Father Heart disease Diabetes Grandfather Cancer Grandmother Cancer Surgical History History of appendectomy History of back surgery History of cataract surgery History of cholecystectomy History of total knee arthroplasty Social History Smoking Status: Former smoker alcohol intake: never substance use type: does not use additional social history: Does Take Aspirin Does Not Take Ibuprofen ROS ROS Narrative Review of system is as per HPI. 10 out of 10 review of system was done which are otherwise noncontributory. Physical Exam Narrative General: Ill-appearing woman who appears to be her stated age. HEENT: Normocephalic, atraumatic. Mucous membrane dry. Neck: Supple no JVD. Lungs: Clear to auscultation bilaterally. Abdomen: Normal bowel sounds, soft, nontender, no guarding or rebound. Extremity: 2+ lower extremity edema. No clubbing or cyanosis. Full passive range of motion. Skin: No rash. Skin is warm and dry. Neurologic: No focal neurologic deficit. Psychiatric: Normal mood and affect. Medical Records Data Medical Nutrition Assessment Dietitian: Nutrition Therapy Diagnosis Start: 11/12/20 10:32 Freq: Status: Active Protocol: Document 08/11/21 15:09 RMA (Rec: 11/12/20 15:10 RMA [id number]) Nutrition Malnutrition Evidence of Malnutrition Exists No Intake Problem Decreased Nutrient Needs (specify) Etiology for carbohydrate related to endocrine dysfunction Signs/Symptoms as evidenced by blood glucose 165, 320, 199 Status Active Problem Recommendation Dietitian Recommendations/Changes Will change diet to Carbohydrate-Controlled; Sodium-Restricted. Will add 120ml Glucerna shake TID w/ meals. Lab / Micro Data Result Diagrams: 11/14/20 05:00 11/14/20 05:00 Labs: Laboratory Results - last 24 hr 11/13/20 17:19: POC Glucose 219 H 11/13/20 22:14: POC Glucose 317 H 11/14/20 05:00: APTT 30.6 11/14/20 05:00: WBC 4.2 L, RBC 3.09 L, Hgb 8.8 L, Hct 27.8 L, MCV 90.0, MCH 28.5, MCHC 31.7 L, RDW Std Deviation 41.8, RDW Coeff of Dee 12.7, Plt Count 174, MPV 11.4, Immature Gran % (Auto) 2.400 H, Neut % (Auto) 77.0 H, Lymph % (Auto) 5.9 L, [place] % (Auto) 14.7 H, Eos % (Auto) 0.0, Baso % (Auto) 0.0, Absolute Neuts (auto) 3.3, Absolute Lymphs (auto) 0.25 L, Nucleated RBC % 0, Differential Comment SCANNED, Diff Path Review Reviewed 11/14/20 05:00: Sodium 136, Potassium 4.3, Chloride 106, Carbon Dioxide 19.0 L, Anion Gap 11, BUN 73 H, Creatinine 4.06 H, Estim Creat Clear Calc 8.84, Est GFR (MDRD) Af Amer 14 L, Est GFR (MDRD) Non-Af 11 L, BUN/Creatinine Ratio 18.0, Glucose 185 H, Calcium 7.2 L 11/14/20 06:55: POC Glucose 155 H 11/14/20 13:26: POC Glucose 170 H Micro: Microbiology 11/12/20 09:50 Sputum, Expectorated/Coughed Gram Stain - Final 11/12/20 09:50 Sputum, Expectorated/Coughed Respiratory Culture - Final 11/11/20 14:55 Blood Culture (Wb) - Anticubital Left Blood Culture - Preliminary No growth in 48 hours. Rhythm Strip Rhythm Strip: Sinus Rhythm Rate: 70 Ectopy: None
[2020-11-14] MEDS: Lactated Ringers 1,000 ML 75 ML IV (16:46)
[2020-11-14 17:01] LABS: Bedside Glucose 191 mg/dL (70-110)
[2020-11-14] MEDS: traZODone 100 MG Tablet PO (22:01)
[2020-11-14 23:45] LABS: Bedside Glucose 215 mg/dL (70-110)
[2020-11-15] VITALS (7 sets, daily range): BP systolic 121–155; BP diastolic 66–77; PULSE 63–87; RESP 16–18; TEMP 36.7; O2SAT 87–98
[2020-11-15] MEDS: Insulin Lispro 100 UNIT/ML INSULN.PEN SC ×2 (06:52→11:02)
[2020-11-15] MEDS: busPIRone 5 MG Tablet 10 MG PO ×2 (06:54→13:23)
[2020-11-15] MEDS: Lactated Ringers 1,000 ML 75 ML IV (06:58)
[2020-11-15 07:06] LABS: Bedside Glucose 156 mg/dL (70-110)
[2020-11-15 09:50] LABS: Absolute Lymphocyte Count 0.29 X10^3/uL (0.83-4.51); Absolute Neutrophil Count 3.3 X10^3/uL (2.0-7.7); Basophil# 0.01 X10^3/uL; Basophil% 0.2 % (0-1); Hematocrit 27.8 % (37-47); Hemoglobin 9.1 g/dL (12.0-15.0); Lymphocyte # 0.29 X10^3/ul (0.83-4.51); Lymphocyte % 6.6 % (19-41); Mean Corp Hgb Conc 32.7 g/dL (32-36); Mean Corpuscular Hgb 28.9 pg (27.0-32.0); Mean Corpuscular Volume 88.3 fL (81-99); Mean Platelet Vol. 11.2 fl (6.2-12.0); Monocyte# 0.66 X10^3/uL; NRBC Flagged by Analyzer 0 % (0-5); Neutrophil # 3.27 X10^3/uL (2.7-7.7); Neutrophil % 74.3 % (47-70); POSITIVE DIFFERENTIAL YES; Platelet Count 185 K/mm3 (150-450); RBC Distribution Width CV 12.9 % (11.6-14.6); RBC Distribution Width SD 41.5 fl (35.1-43.9); Red Blood Count 3.15 M/mm3 (4.2-5.4); White Blood Count 4.4 K/mm3 (4.4-11.0)
[2020-11-15 09:52] LABS: Differential Indicated SCAN CRITERIA MET
[2020-11-15 10:10] LABS: Albumin, Serum 2.1 g/dL (3.2-5.0); Anion Gap 12 (5-15); BUN 80 mg/dL (7-18); BUN/Creat Ratio 20.5 RATIO (10-20); Calcium,Total 7.9 mg/dL (8.5-10.1); Chloride 104 mmol/L (98-107); EST Glomerular Filtration Rate 12 mL/min (>60); Est Glom Filt Rate - Afr Amer 14 mL/min (>60); Glucose 150 mg/dL (74-106); Potassium 4.6 mmol/L (3.5-5.1); Sodium Level 133 mmol/L (136-145)
--- NOTE | 2020-11-15 10:49 | PN.RENAL_ITS ---
Subjective Subjective Following for acute kidney injury on chronic kidney disease. The patient feels better. She denies shortness of breath at rest. There is increasing edema although there is no orthopnea or PND. Appetite is improving. Objective Data Objective Data Vital Signs: Vital Signs Temp Pulse Resp BP Pulse Ox 98.1 F 87 17 138/66 H 98 11/15/20 10:30 11/15/20 10:30 11/15/20 10:30 11/15/20 10:30 11/15/20 10:30 Oxygen Flow Rate (L/min) 2 Oxygen Delivery Method Nasal Cannula Weight: 73.5 kg Body Mass Index (BMI) 26.2 Intake & Output: Intake and Output for Last 24 Hours 11/13/20 11/14/20 11/15/20 23:59 23:59 23:59 Intake Total 2114.20 / 4.20 2210 / 2210 1250 / 1250 Balance 2113. / 2113.2209 / 2210 1250 / 1250 Medical Nutrition Assessment Dietitian: Nutrition Therapy Diagnosis Start: 11/12/20 10:32 Freq: Status: Active Protocol: Document 11/12/20 15:09 RMA (Rec: 11/12/20 15:10 RMA [id number]) Nutrition Malnutrition Evidence of Malnutrition Exists No Intake Problem Decreased Nutrient Needs (specify) Etiology for carbohydrate related to endocrine dysfunction Signs/Symptoms as evidenced by blood glucose 165, 320, 199 Status Active Problem Recommendation Dietitian Recommendations/Changes Will change diet to Carbohydrate-Controlled; Sodium-Restricted. Will add 120ml Glucerna shake TID w/ meals. Lab / Micro Data Result Diagrams: 11/15/20 09:25 11/15/20 09:25 Labs: Laboratory Results - last 24 hr 11/14/20 05:00: Diff Path Review Reviewed 11/14/20 13:26: POC Glucose 170 H 11/14/20 16:40: POC Glucose 191 H 11/14/20 22:07: POC Glucose 215 H 11/15/20 06:49: POC Glucose 156 H 11/15/20 09:25: WBC 4.4, RBC 3.15 L, Hgb 9.1 L, Hct 27.8 L, MCV 88.3, MCH 28.9, MCHC 32.7, RDW Std Deviation 41.5, RDW Coeff of Dee 12.9, Plt Count 185, MPV 11.2, Immature Gran % (Auto) 3.900 H, Neut % (Auto) 74.3 H, Lymph % (Auto) 6.6 L , [place] % (Auto) 15.0 H, Eos % (Auto) 0.0, Baso % (Auto) 0.2, Absolute Neuts (auto) 3.3, Absolute Lymphs (auto) 0.29 L, Nucleated RBC % 0 11/15/20 09:25: Sodium 133 L, Potassium 4.6, Chloride 104, Carbon Dioxide 17.0 L , Anion Gap 12, BUN 80 H, Creatinine 3.90 H, Estim Creat Clear Calc 9.20, Est GFR (MDRD) Af Amer 14 L, Est GFR (MDRD) Non-Af 12 L, BUN/Creatinine Ratio 20.5 H , Glucose 150 H, Calcium 7.9 L, Phosphorus 6.0 H, Albumin 2.1 L Micro: Microbiology 11/12/20 09:50 Sputum, Expectorated/Coughed Gram Stain - Final 11/12/20 09:50 Sputum, Expectorated/Coughed Respiratory Culture - Final 11/11/20 14:55 Blood Culture (Wb) - Anticubital Left Blood Culture - Preliminary No growth in 48 hours. 11/12/20 09:50 Urine, Clean Catch Streptococcus pneumoniae Antigen (M - Final 11/12/20 09:50 Urine, Clean Catch Legionella Antigen - Final 11/11/20 Unknown Interface Orders Respiratory Panel (PCR) - Final 11/11/20 14:51 Mucosa - Nose SARS-CoV-2 Antigen (Rapid) - Final SARS-CoV-2 (COVID 19) Rhythm Strip Rhythm Strip: Sinus Rhythm Rate: 70 Ectopy: None Physical Exam Narrative General: No apparent distress. HEENT: Normocephalic, atraumatic. Mucous membrane dry. Neck: Supple no JVD. Lungs: Clear to auscultation bilaterally. Abdomen: Normal bowel sounds, soft, nontender, no guarding or rebound. Extremity: 2+ lower extremity edema. No clubbing or cyanosis. Psychiatric: Normal mood and affect. Assessment & Plan Assessment/Plan (1) CHETAN (acute kidney injury): PLAN: I suspect the patient has ischemic ATN. The patient presented with several days of poor oral intake along with nausea, vomiting and diarrhea. The patient was also taking ARB prior to admission. Benazepril has been put on hold. Serum creatinine is better today at 3.90 mg/dL. I suspect that creatinine will continue to trend down towards usual baseline with continued hydration. She is okay from my standpoint to be discharged home. I did speak to her daughter who is a physician about what to look for. We should recheck renal function panel again in 3 to 4 days as outpatient. She will follow up with me as scheduled already in the office. (2) Chronic kidney disease, stage 4 (severe): PLAN: The patient has known focal segmental glomerulosclerosis which was treated with 6 months course of cyclosporine between April until September 2020. She did not respond well in terms of proteinuria. She still has nephrotic range proteinuria. However, her renal function stabilized with serum creatinine of around 2.7 at baseline. (3) Hypertension: PLAN: BP is reasonably controlled off of benazepril. I agree with holding ARB because of CHETAN. Continue to monitor BP as outpatient. (4) Pneumonia due to COVID-19 virus: PLAN: Treatment as per hospital medicine service. The patient is clinically improving.
--- NOTE | 2020-11-15 10:53 | PCM.DC.SUM ---
Providers Date of Admission: 11/11/20 Primary Care Physician: Dr. Chaparrita Albrecht DO Consultations 11/14/20 10:21 Consult: Nephrology Routine Consulting Provider: Esmer Yan Reason for Consult: Chetan on CKD EMERGENT Consult: No MD Notified: Yes Date Notified: 11/14/20 Time Notified: 10:21 Method of Notification: Text Reason For Visit: COVID PNA, HYPOXIA Diagnosis Discharge Diagnosis (1) CHETAN (acute kidney injury): Status: Acute Code(s): N17.9 - Acute kidney failure, unspecified (2) Chronic kidney disease, stage 4 (severe): Status: Chronic Code(s): N18.4 - Chronic kidney disease, stage 4 (severe) (3) Hypertension: Status: Chronic Code(s): I10 - Essential (primary) hypertension (4) Pneumonia due to COVID-19 virus: Status: Acute Code(s): U07.1 - COVID-19; J12.82 - Pneumonia due to coronavirus disease 2019 Medications at Discharge Home Medications trazodone 100 mg PO QHS 04/20/16 amlodipine 10 mg PO DAILY 03/21/19 atorvastatin 20 mg PO DAILY 03/21/19 doxycycline hyclate 20 mg PO BID 03/21/19 mirabegron 50 mg PO QHS 03/21/19 omeprazole 20 mg PO DAILY 03/21/19 buspirone 5 mg tablet 10 mg PO TID tab 05/06/20 clopidogrel 75 mg tablet 75 mg PO DAILY 05/06/20 lactobacillus combination no.9 4 billion cell capsule 4,000 mmu cells PO DAILY 05/06/20 linagliptin 5 mg tablet 5 mg PO DAILY 05/06/20 carvedilol 25 mg tablet 12.5 mg PO BID tab 05/07/20 cholecalciferol (vitamin D3) 125 mcg (5,000 unit) capsule 125 mcg PO DAILY 05/07/20 vilazodone 40 mg tablet 40 mg PO DAILY 05/07/20 aspirin 325 mg PO DAILY 11/11/20 hydrocodone-acetaminophen 0.5 tab PO TID PRN PRN 11/11/20 dexamethasone 6 mg PO DAILY #6 tab 11/15/20 Hospital Course Operations None Procedures None Summary of Care Provided Minutes Spent on Discharge: 45 Hospital Course: Patient is an 80-year-old female with an extensive past medical history as outlined which includes metastatic lung cancer with chronic thrombocytopenia as well as CKD stage IV and chronic hypoxic respiratory failure due to lung cancer and COPD. She was admitted through the ED on 11/11/2020 with a complaint of shortness of breath, fever, nausea and vomiting. Patient recently traveled to [facility] with several family members and one of her grandchildren tested positive for Covid. She did interact with her granddaughter and after she returned she started having symptoms a few days prior to admission. She was tested for Covid and tested positive. Her symptoms worsen with associated diarrhea, poor appetite and confusion so she was brought into the ED. She was initially noted to have a low-grade fever and blood pressure was initially low at 93/69 but subsequently improved with hydration. She was saturating at 97% on her 2 L of oxygen. COVID-19 test done was positive here, EKG showed no acute ST changes and chest x-ray showed bilateral pneumonia. She was admitted and managed for COVID-19 infection. She was started on Decadron and remdesivir and hydrated with fluids. She was also given azithromycin initially. Antibiotics were subsequently discontinued. Hospital stay was complicated by CHETAN on CKD stage IV with a creatinine trending up to about 4. This was thought to be due to prerenal CHETAN on CKD from ATN as she was not eating and drinking well was dehydrated. Patient was hydrated with fluids and encouraged to increase her oral intake. Shortness of breath remained at baseline and she remained on her 2 L of oxygen throughout admission. Of note, nephrology was consulted on account of her CHETAN on CKD stage IV. Creatinine came down to 3.9 at time of discharge with her baseline being around 3.2. Patient however wanted to be discharged home per discussion with nephrology, patient was deemed stable for discharge. She was discharged home on 11/15/2020 and is follow-up with her primary care doctor and nephrology. She is to have a follow-up BMP on 11/17/2020 to monitor her kidney function. She is to remain in self isolation till November 21, 2020, as she her symptoms started on November 05, 2020. She was discharged on PO decadrone 6mg daily for 6 days to complete a 10 day course. Of note, she was on benazepril, which was discontinued at discharge on accout of CHETAN on CKD IV. Patient seen and examined prior to discharge. She had no complaints and had been eating and drinking better. Review of systems is otherwise negative. Labs and vitals reviewed. Home meds reviewed and reconciled. Physical Exam Const alert, oriented x3 and no apparent distress General Appearance: cooperative and comfortable Orientation / Consciousness: awake Exam Limitations: no limitations HEENT normocephalic, head/scalp atraumatic, moist oral mucous membranes and oropharynx normal Eyes PERRL and EOMs intact bilaterally Neck no lymphadenopathy Resp Resp Narrative: mildly diminished breath sounds bibasally, no wheezes or crackles. on 2L of oxygen. Cardio regular rate, regular rhythm, S1 normal heart sound, S2 normal heart sound and no murmurs GI normal to inspection, nondistended, normoactive bowel sounds, soft to palpation, non-tender and non-distended Extremity normal to inspection, full ROM and no clubbing, cyanosis or edema Skin no rashes or lesions noted Neuro oriented x3, CN's II-XII intact bilaterally and moves all extremities Sensorium / Orientation: awake and alert Psych affect normal Medical Records Data Medical Nutrition Assessment Dietitian: Nutrition Therapy Diagnosis Start: 11/12/20 10:32 Freq: Status: Active Protocol: Document 11/12/20 15:09 RMA (Rec: 11/12/20 15:10 RMA [id number]) Nutrition Malnutrition Evidence of Malnutrition Exists No Intake Problem Decreased Nutrient Needs (specify) Etiology for carbohydrate related to endocrine dysfunction Signs/Symptoms as evidenced by blood glucose 165, 320, 199 Status Active Problem Recommendation Dietitian Recommendations/Changes Will change diet to Carbohydrate-Controlled; Sodium-Restricted. Will add 120ml Glucerna shake TID w/ meals. Weight / BMI Weight Weight: 162 lb 0.636 oz Body Mass Index (BMI) 26.2 ABG / Lab / Microbiology Data Result Diagrams: 11/15/20 09:25 11/15/20 09:25 Laboratory: Laboratory Results - last 24 hr 11/14/20 05:00: Diff Path Review Reviewed 11/14/20 13:26: POC Glucose 170 H 11/14/20 16:40: POC Glucose 191 H 11/14/20 22:07: POC Glucose 215 H 11/15/20 06:49: POC Glucose 156 H 11/15/20 09:25: WBC 4.4, RBC 3.15 L, Hgb 9.1 L, Hct 27.8 L, MCV 88.3, MCH 28.9, MCHC 32.7, RDW Std Deviation 41.5, RDW Coeff of Dee 12.9, Plt Count 185, MPV 11.2, Immature Gran % (Auto) 3.900 H, Neut % (Auto) 74.3 H, Lymph % (Auto) 6.6 L, [place] % (Auto) 15.0 H, Eos % (Auto) 0.0, Baso % (Auto) 0.2, Absolute Neuts (auto) 3.3, Absolute Lymphs (auto) 0.29 L, Nucleated RBC % 0 11/15/20 09:25: Sodium 133 L, Potassium 4.6, Chloride 104, Carbon Dioxide 17.0 L, Anion Gap 12, BUN 80 H, Creatinine 3.90 H, Estim Creat Clear Calc 9.20, Est GFR (MDRD) Af Amer 14 L, Est GFR (MDRD) Non-Af 12 L, BUN/Creatinine Ratio 20.5 H, Glucose 150 H, Calcium 7.9 L, Phosphorus 6.0 H, Albumin 2.1 L Microbiology: Microbiology 11/12/20 09:50 Sputum, Expectorated/Coughed Gram Stain - Final 11/12/20 09:50 Sputum, Expectorated/Coughed Respiratory Culture - Final 11/11/20 14:55 Blood Culture (Wb) - Anticubital Left Blood Culture - Preliminary No growth in 48 hours. 11/12/20 09:50 Urine, Clean Catch Streptococcus pneumoniae Antigen (M - Final 11/12/20 09:50 Urine, Clean Catch Legionella Antigen - Final 11/11/20 Unknown Interface Orders Respiratory Panel (PCR) - Final 11/11/20 14:51 Mucosa - Nose SARS-CoV-2 Antigen (Rapid) - Final SARS-CoV-2 (COVID 19) D/C Instructions Discharge Diet: Low fat / Low cholesterol Discharge Activity: Return to Normal Activity Weight Bearing Status: Weight bearing as tolerated Call your doctor if you observe: Fever of 101 or Higher, Shortness of breath, Dizziness, Swelling in the ankles and Increased palpitations (irregular heartbeat) Meaningful Use Info Meaningful Use Diagnoses (Choose all that apply): None applicable Discharge Plan Admission Admit Date/Time: 11/11/20 19:25 Primary Reason for Your Visit: COVID 19 infection, CHETAN on CKD IV Attending Provider: Alfreda Sam Primary Care Provider: Chaparrita Albrecht Consulting Providers: Esmer Yan Instructions Patient Instructions: Coronavirus Disease 2019 (COVID-19): Overview, Coronavirus Disease 2019 (COVID-19): Caring for Yourself or Others, Acute Kidney Failure Dc, CKD Dc Additional Instructions / Restrictions: remain in self isolation till November 21/2021. To follow up with PCP for follow up BMP to evaluate kidney function on Tuesday November 17, 2020. Discharge Orders/Prescriptions Prescriptions: New dexamethasone 6 mg tablet 6 mg PO DAILY Qty: 6 RF: 0 Continued carvedilol 25 mg tablet 12.5 mg PO BID RF: 0 Viibryd 40 mg tablet 40 mg PO DAILY RF: 0 cholecalciferol (vitamin D3) 125 mcg (5,000 unit) capsule 125 mcg PO DAILY RF: 0 Adult 50 Plus Probiotic 4 billion cell capsule 4,000 mmu cells PO DAILY RF: 0 clopidogrel 75 mg tablet 75 mg PO DAILY RF: 0 Tradjenta 5 mg tablet 5 mg PO DAILY RF: 0 trazodone 100 MG tablet 100 mg PO QHS RF: 0 atorvastatin 20 MG tablet 20 mg PO DAILY RF: 0 amlodipine 10 MG tablet 10 mg PO DAILY RF: 0 omeprazole 20 MG capsule,delayed release(DR/EC) 20 mg PO DAILY RF: 0 mirabegron 50 MG tablet extended release 24 hr 50 mg PO QHS RF: 0 doxycycline hyclate 20 MG tablet 20 mg PO BID RF: 0 buspirone 5 mg tablet 10 mg PO TID RF: 0 aspirin 325 mg Tablet 325 mg PO DAILY RF: 0 hydrocodone-acetaminophen 5-325 mg tablet 0.5 tab PO TID PRN PRN (Reason: Pain) RF: 0 Discontinued benazepril 20 mg tablet 10 mg PO DAILY RF: 0 Referrals / Follow Up: Chaparrita Albrecht DO [Primary Care Provider] - Within 1 Week Esmer Yan MD [STAFF PHYSICIAN] - Within 1 Week Disposition Disposition (needs filled in before D/C Order can be placed): Home, Self Care Charges/Coding Visit Charges Inpatient E&M: 36317 Disch Hosp
[2020-11-15] MEDS: HYDROcodone Bitartrate/Apap 5/325 Tablet PO (10:57)
[2020-11-15] MEDS: Clopidogrel Bisulfate 75 MG Tablet PO (10:58)
[2020-11-15] MEDS: Aspirin 81 MG TAB.CHEW PO (10:58)
[2020-11-15] MEDS: Pantoprazole Sodium 20 MG Tablet PO (10:58)
[2020-11-15] MEDS: Mirabegron 50 MG TAB.ER.24H PO (10:58)
[2020-11-15] MEDS: Atorvastatin Calcium 20 MG Tablet PO (10:58)
[2020-11-15] MEDS: Carvedilol 12.5 MG Tablet PO (10:58)
[2020-11-15] MEDS: amLODIPine 10 MG Tablet PO (10:58)
[2020-11-15] MEDS: 0.9% Saline Lock 10 ML Syringe IV (11:03)
[2020-11-15] MEDS: dexAMETHasone 4 MG/ML Vial 6 MG IV (11:05)
[2020-11-15 11:46] LABS: Bedside Glucose 181 mg/dL (70-110)
--- NOTE | 2020-11-17 14:22 | CASEMGMT ---
ARSENIO RAMIREZ Discharge Follow-up Phone Call: DARREN: 12 Strata: 3 Call Date: 11/17/20 Discharge Date: 11/15/20 Time of Call: 1420 Duration: 3 min Admitting Diagnosis: Covid PNA, hypoxia ARSENIO RAMIREZ completed follow-up phone call after recent hospitalization. Patient states she is doing much better. Patient states she is wearing her oxygen and her breathing is getting better everyday. Patient states she has no questions regarding discharge instructions. Patient has follow-up appts scheduled. Patient was able to fill prescriptions without any issues. Patient had no further concerns at this time.
== END 2020-11-15 14:57 | disposition home or self-care (01) | DRG 177 ==
LOC: ED 18:38 → PCU 21:10
PROVIDERS: Internal Medicine; Admitting Provider Family Medicine; Emergency Provider Emergency Medicine; PCP Internal Medicine; Visit Provider Student in an Organized Health Care Education/Training Program
DX: U07.1 COVID-19 (principal); J12.82 Pneumonia due to coronavirus disease 2019; N17.0 Acute kidney failure with tubular necrosis; J96.11 Chronic respiratory failure with hypoxia; J44.0 Chronic obstructive pulmonary disease with (acute) lower respiratory infection; N18.4 Chronic kidney disease, stage 4 (severe); D61.818 Other pancytopenia; C34.90 Malignant neoplasm of unspecified part of unspecified bronchus or lung; C78.7 Secondary malignant neoplasm of liver and intrahepatic bile duct; G93.49 Other encephalopathy; I12.9 Hypertensive chronic kidney disease with stage 1 through stage 4 chronic kidney disease, or unspecified chronic kidney disease; E11.22 Type 2 diabetes mellitus with diabetic chronic kidney disease; D63.1 Anemia in chronic kidney disease; E78.5 Hyperlipidemia, unspecified; K21.9 Gastro-esophageal reflux disease without esophagitis; F32.9 Major depressive disorder, single episode, unspecified; F41.9 Anxiety disorder, unspecified; R60.0 Localized edema; Z20.822 Contact with and (suspected) exposure to COVID-19; Z66 Do not resuscitate; Z79.82 Long term (current) use of aspirin; Z79.02 Long term (current) use of antithrombotics/antiplatelets; Z79.84 Long term (current) use of oral hypoglycemic drugs; Z99.81 Dependence on supplemental oxygen; Z79.899 Other long term (current) drug therapy; Z87.891 Personal history of nicotine dependence; Z86.73 Personal history of transient ischemic attack (TIA), and cerebral infarction without residual deficits
CPT/HCPCS: 36415; 71045; 80048; 80053; 80069; 80076; 82728; 82962; 83605; 83615; 83735; 83880; 84100; 84145; 84484; 85025; 85379; 85610; 85730; 86140; 87040; 87070; 87205; 87426; 87449; 87633; 93005; 93970; 97161; 97166; 97530; 97802; 99251; 99285; J7030; J7050; J7120; A4216; G0463; J0610

== ENCOUNTER → 2020-11-17 | Outpatient (CLI) | payer MEDICARE, OTHER, SELFPAY ==
[2020-11-11 19:05] VITALS: BMI 26.2
[2020-11-17 17:50] LABS: Absolute Lymphocyte Count 0.23 X10^3/uL (0.83-4.51); Absolute Neutrophil Count 13.6 X10^3/uL (2.0-7.7); Basophil# 0.03 X10^3/uL; Basophil% 0.2 % (0-1); Hematocrit 30.5 % (37-47); Hemoglobin 9.7 g/dL (12.0-15.0); Lymphocyte # 0.23 X10^3/ul (0.83-4.51); Lymphocyte % 1.6 % (19-41); Mean Corp Hgb Conc 31.8 g/dL (32-36); Mean Corpuscular Hgb 28.1 pg (27.0-32.0); Mean Corpuscular Volume 88.4 fL (81-99); Mean Platelet Vol. 11.3 fl (6.2-12.0); Monocyte# 0.39 X10^3/uL; Monocyte% 2.7 % (0-10); NRBC Flagged by Analyzer 0 % (0-5); Neutrophil # 13.57 X10^3/uL (2.7-7.7); Neutrophil % 93.1 % (47-70); POSITIVE DIFFERENTIAL YES; Platelet Count 327 K/mm3 (150-450); RBC Distribution Width CV 13.2 % (11.6-14.6); RBC Distribution Width SD 42.5 fl (35.1-43.9); Red Blood Count 3.45 M/mm3 (4.2-5.4); White Blood Count 14.6 K/mm3 (4.4-11.0)
[2020-11-17 17:55] LABS: Differential Indicated SCAN CRITERIA MET
[2020-11-17 18:15] LABS: Anion Gap 9 (5-15); BUN 106 mg/dL (7-18); BUN/Creat Ratio 25.5 RATIO (10-20); Calcium,Total 8.3 mg/dL (8.5-10.1); Chloride 106 mmol/L (98-107); Creatinine, Serum 4.15 mg/dL (0.55-1.02); EST Glomerular Filtration Rate 11 mL/min (>60); Est Glom Filt Rate - Afr Amer 13 mL/min (>60); Glucose 284 mg/dL (74-106); Potassium 5.2 mmol/L (3.5-5.1); Sodium Level 135 mmol/L (136-145); Troponin-I HS 10.3 pg/mL (3.0-53.7)
[2020-11-17 18:16] LABS: D-Dimer Quantitative (DVT/PE) 2.65 FEU/ug/m (0.27-0.49)
[2020-11-17 18:23] LABS: Anisocytosis 1+; Platelet Estimate ADEQUATE (ADEQ); Red Cell Morphology N CHROM NORMAL (NORM C&C)
== END | disposition home or self-care (01) ==
PROVIDERS: PCP Internal Medicine; Referring Provider Internal Medicine; Visit Provider Internal Medicine
DX: U07.1 COVID-19 (principal); R07.9 Chest pain, unspecified
CPT/HCPCS: 80048; 84484; 85025; 85379

== ENCOUNTER 2020-11-21 15:56 | Inpatient (IN) | payer MEDICARE, OTHER, SELFPAY ==
[2020-11-21] VITALS (22 sets, daily range): BP systolic 89–154; BP diastolic 64–93; PULSE 84–162; RESP 16–24; TEMP 36.6–37.3; O2SAT 93–99; BMI 24.7; BMI 23.8
--- NOTE | 2020-11-21 16:41 | EKG12_ITS ---
Test Reason : ELEVATED HR Blood Pressure : / mmHG Vent. Rate : 151 BPM Atrial Rate : 357 BPM P-R Int : 000 ms QRS Dur : 076 ms QT Int : 244 ms P-R-T Axes : 000 -24 074 degrees QTc Int : 386 ms Atrial fibrillation Nonspecific T wave abnormality Abnormal ECG Confirmed by LORENZO MANN, RANGEL ([id number]), advertising editor ROSIBEL KIRKPATRICK ([id number]) on 11/24/2020 1:36:08 PM Referred By: PL Confirmed By:SNEHAL VENTURA MD
--- NOTE | 2020-11-21 16:44 | EDS_ITS ---
HPI History of Present Illness Chief Complaint: Shortness of Breath Informant: patient and family Onset/Context/Timing Onset: Weeks (2) Context: Gradual Onset Timing: Continuous Quality: Malaise Location: Generalized Worsened by: Nothing Relieved by: Nothing Narrative Narrative: Patient presents with some general malaise for the past 2 weeks. Patient was diagnosed with COVID-19 approximately 2 weeks ago. Patient has been having decreased appetite because she states food does not taste good to her. Patient also has decreased fluid intake. Daughter states patient's blood sugars have been increased over the last 2 days. Daughter states that she was starting to get better but then got worse over the last 1 to 2 days. Patient had labs drawn on Tuesday which showed an elevated white blood cell count of 14 but normal differential. This was attributed to the dexamethasone she was on for the COVID-19. Patient had blood work today which showed an white blood cell count of 16 with a left shift. Patient has been off of the dexamethasone. Patient had a fever 2 weeks ago when she started with Covid but denies any fevers over the last few days. Daughter noted the patient to have atrial fibrillation last night. Daughter states her heart rate was elevated last night but then came back down to normal. Daughter noted the elevation of the heart rate again today. Patient still admits to a slight cough. 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 Type 2 diabetes mellitus Home Medications trazodone 100 mg PO QHS 04/20/16 [History Last Taken 11/10/20] amlodipine 10 mg PO DAILY 03/21/19 [History Last Taken 11/11/20] atorvastatin 20 mg PO DAILY 03/21/19 [History Last Taken 11/10/20] doxycycline hyclate 20 mg PO BID 03/21/19 [History Last Taken 11/11/20] mirabegron 50 mg PO QHS 03/21/19 [History Last Taken 11/10/20] omeprazole 20 mg PO DAILY 03/21/19 [History Last Taken 11/10/20] buspirone 5 mg tablet 10 mg PO TID tab 05/06/20 [History Last Taken 11/11/20] clopidogrel 75 mg tablet 75 mg PO DAILY 05/06/20 [History Last Taken 11/11/20] lactobacillus combination no.9 4 billion cell capsule 4,000 mmu cells PO DAILY 05/06/20 [History Last Taken Unknown] linagliptin 5 mg tablet 5 mg PO DAILY 05/06/20 [History Last Taken 11/11/20] carvedilol 25 mg tablet 12.5 mg PO BID tab 05/07/20 [History Last Taken 11/11/20] cholecalciferol (vitamin D3) 125 mcg (5,000 unit) capsule 125 mcg PO DAILY 05/07/20 [History Last Taken Unknown] vilazodone 40 mg tablet 40 mg PO DAILY 05/07/20 [History Last Taken Unknown] aspirin 325 mg PO DAILY 11/11/20 [History Last Taken 11/11/20] hydrocodone-acetaminophen 0.5 tab PO TID PRN PRN 11/11/20 [History Last Taken Unknown] dexamethasone 6 mg PO DAILY #6 tab 11/15/20 [Rx Last Taken Unknown] Allergy/AdvReac Type Severity Reaction Status Date / Time clarithromycin [From Biaxin] Allergy Severe Vomiting Verified 11/21/20 16:03 metaxalone [From Skelaxin] Allergy Severe Hives Verified 11/21/20 16:03 morphine AdvReac Shortness Verified 11/21/20 16:03 of breath Family History Mother Brain aneurysm Father Heart disease Diabetes Grandfather Cancer Grandmother Cancer Surgical History History of appendectomy History of back surgery History of cataract surgery History of cholecystectomy History of total knee arthroplasty Social History Smoking Status: Former smoker alcohol intake: never substance use type: does not use additional social history: Does Take Aspirin Does Not Take Ibuprofen ROS ROS ED Constitutional Constitutional ED: Denies chills or fever(s) Eyes Eyes: Denies blurry vision or change in vision ENT ENT ED: Denies rhinorrhea or sore throat Cardiovascular Cardiovascular: Reports chest pain, palpitations and racing heartbeat Respiratory/Chest Respiratory/Chest: Reports cough; Denies dyspnea Gastrointestinal Gastrointestinal: Denies nausea or vomiting Genitourinary Genitourinary ED: Reports urinary frequency; Denies dysuria or hematuria Musculoskeletal Musculoskeletal: Denies back pain or neck pain Integumentary Denies abscess or rash Neurologic Neurologic: Reports headache(s); Denies weakness Allergic/Immunologic Allergic/Immunologic ED: Denies mouth swelling or urticaria EXAM Physical Exam Const Vital Signs: 11/21/20 16:00 11/21/20 16:02 11/21/20 16:04 Temperature 98.2 F 98.2 F Temperature Source Oral Oral Pulse Rate 110 H 110 H Respiratory Rate 17 17 Respiratory Effort Normal Non-Labored Respiratory Depth Normal Respiratory Pattern Normal Blood Pressure 149/82 H 149/82 H Blood Pressure Mean 104 104 Pulse Ox 93 93 Oxygen Delivery Method Room Air Room Air Room Air Positive well nourished and well developed General Appearance ED: well developed HEENT Reports moist mucous membranes Neck supple and no JVD Resp normal respiratory effort Auscultation: diminished lung sounds bilateral Cardio Rate: tachycardic Rhythm: abnormal rhythm irregularly irregular GI normal to inspection, nondistended, normoactive bowel sounds and non-tender Palpation: soft Extremity normal to inspection General Extremety ED: Yes tenderness; Negative for edema General Extremity: Negative for edema Neuro oriented x3, CN's II-XII intact bilaterally and no sensory deficits noted Sensorium / Orientation: alert Motor Exam: strength 5/5 throughout Psych mental status grossly normal Discharge Plan Triage Chief Complaint: Shortness of Breath ED Provider: Tawanda Horton Dx/Rx/DC Orders Prescriptions: No Action carvedilol 25 mg tablet 12.5 mg PO BID RF: 0 Viibryd 40 mg tablet 40 mg PO DAILY RF: 0 cholecalciferol (vitamin D3) 125 mcg (5,000 unit) capsule 125 mcg PO DAILY RF: 0 Adult 50 Plus Probiotic 4 billion cell capsule 4,000 mmu cells PO DAILY RF: 0 clopidogrel 75 mg tablet 75 mg PO DAILY RF: 0 Tradjenta 5 mg tablet 5 mg PO DAILY RF: 0 trazodone 100 MG tablet 100 mg PO QHS RF: 0 atorvastatin 20 MG tablet 20 mg PO DAILY RF: 0 amlodipine 10 MG tablet 10 mg PO DAILY RF: 0 omeprazole 20 MG capsule,delayed release(DR/EC) 20 mg PO DAILY RF: 0 mirabegron 50 MG tablet extended release 24 hr 50 mg PO QHS RF: 0 doxycycline hyclate 20 MG tablet 20 mg PO BID RF: 0 buspirone 5 mg tablet 10 mg PO TID RF: 0 aspirin 325 mg Tablet 325 mg PO DAILY RF: 0 hydrocodone-acetaminophen 5-325 mg tablet 0.5 tab PO TID PRN PRN (Reason: Pain) RF: 0 dexamethasone 6 mg tablet 6 mg PO DAILY Qty: 6 RF: 0 Primary Care Provider: Chaparrita Albrecht
[2020-11-21] MEDS: dilTIAZem 25 MG/5 ML Vial IV BOLUS (17:05)
[2020-11-21 17:16] LABS: Absolute Lymphocyte Count 0.34 X10^3/uL (0.83-4.51); Absolute Neutrophil Count 11.8 X10^3/uL (2.0-7.7); Basophil# 0.03 X10^3/uL; Basophil% 0.2 % (0-1); Eosinophil# 0.13 X10^3/uL; Eosinophils% 0.9 % (0-5); Hematocrit 29.4 % (37-47); Hemoglobin 9.6 g/dL (12.0-15.0); Lymphocyte # 0.34 X10^3/ul (0.83-4.51); Lymphocyte % 2.4 % (19-41); Mean Corp Hgb Conc 32.7 g/dL (32-36); Mean Corpuscular Volume 88.8 fL (81-99); Mean Platelet Vol. 11.1 fl (6.2-12.0); Monocyte# 1.28 X10^3/uL; Monocyte% 9.1 % (0-10); NRBC Flagged by Analyzer 0 % (0-5); Neutrophil # 11.84 X10^3/uL (2.7-7.7); Neutrophil % 84.6 % (47-70); POSITIVE DIFFERENTIAL YES; Platelet Count 292 K/mm3 (150-450); RBC Distribution Width CV 13.4 % (11.6-14.6); RBC Distribution Width SD 43.7 fl (35.1-43.9); Red Blood Count 3.31 M/mm3 (4.2-5.4)
--- NOTE | 2020-11-21 17:22 | ED.RN ---
provider aware of heart rate. no new orders at this time.
[2020-11-21 17:23] LABS: Differential Indicated SCAN CRITERIA MET
[2020-11-21 17:27] LABS: Lactic Acid 0.8 mmol/L (0.4-1.9)
[2020-11-21 17:32] LABS: ALB/GLOB Ratio 0.7 RATIO (0.9-2.4); AST(SGOT) 12 U/L (15-37); Alanine Aminotransfer ALT/SGPT 17 U/L (13-56); Albumin, Serum 2.1 g/dL (3.2-5.0); Alkaline Phosphatase 66 U/L (45-117); Anion Gap 10 (5-15); BUN 110 mg/dL (7-18); BUN/Creat Ratio 25.8 RATIO (10-20); Calcium,Total 8.2 mg/dL (8.5-10.1); Chloride 108 mmol/L (98-107); Creatinine, Serum 4.26 mg/dL (0.55-1.02); EST Glomerular Filtration Rate 11 mL/min (>60); Est Glom Filt Rate - Afr Amer 13 mL/min (>60); Estimated Creatinine Clearance 10.64 ml/min; Globulin 3.1 g/dL (2.2-4.2); Glucose 210 mg/dL (74-106); Potassium 4.7 mmol/L (3.5-5.1); Protein, Total 5.2 g/dL (6.4-8.2); Sodium Level 137 mmol/L (136-145); Troponin-I HS 12 pg/mL (3.0-54.0)
[2020-11-21 17:58] LABS: Bacteria 0 SEEN /hpf (None Seen); Mucous, Urine 0 SEEN /hpf (<or=2+); Red Blood Cells-Urine 0 SEEN /hpf (0-5); White Blood Cells 0 SEEN /hpf (0-5)
[2020-11-21 17:59] LABS: Color, Urine Yellow (Yellow); Glucose, Dipstick 100 mg/dl (Normal); Ketone-Dipstick Negative (Negative); Leukocyte Esterase-Dipstick Negative /ul (Negative); Nitrite-Dipstick Negative (Negative); Occult Blood-Urine Negative /ul (Negative); Protein-Dipstick 500 mg/dl (Negative); Specific Gravity, Urine 1.015 (1.002-1.030); Urine Bilirubin Dipstick Negative (Negative); Urine Urobilinogen Normal (Normal)
[2020-11-21 18:02] LABS: Differential Comment SCANNED
[2020-11-21 18:13] LABS: Amorphous Sediment 1+ URATE; Hyaline Cast 0-5 SEEN /lpf (0-5); Squamous Epithelial Cells - UA 0-5 SEEN /hpf (5-10)
[2020-11-21 18:14] LABS: Urine Clarity Sl Cldy (Clear)
--- NOTE | 2020-11-21 18:24 | RAD_ITS ---
STUDY: X-RAY CHEST REASON FOR EXAM: Female, 80 years old. Fever shortness of breath Covid positive. TECHNIQUE: Frontal portable view of the chest COMPARISON: 11 November 2020, 14 October 2020 FINDINGS: There are scattered bilateral nodular opacities, some of which have been present since prior CT PET in the right upper lobe and left midlung zone. However, there is now more widespread interstitial opacity in the left midlung zone and bilaterally more nodular likely in the upper lobes. Lungs are mildly emphysematous. There is no pneumothorax, pulmonary edema, cardiac megaly or pleural effusions. Right hemidiaphragm is chronically elevated. RAD/Chest 1 View (Portable) IMPRESSION: Bilateral viral pneumonia. Chronic focal opacities, refer to CT PET for full description. Electronically Signed: Anni Soares MD at 19:19 EDT Tel , Service support ,
[2020-11-21 18:53] LABS: Troponin-I HS 14 pg/mL (3.0-54.0)
--- NOTE | 2020-11-21 21:14 | HP.PCM.HOS_ITS ---
[facility] - General General Date of Admission: 11/21/20 HPI Narrative CLARENCE ALBERT, is a 80 F with a significant history of stage IV lung cancer; and hypertension who presents to the emergency department with weakness and lethargy. Also a day before presentation her daughter who is a physician noted that patient was in atrial fibrillation. Her atrial fibrillation persisted on the day of presentation. At the emergent department patient was found to be in A. fib with RVR. Cardizem bolus and drip was started. Of note about 2 weeks ago patient had a COVID-19 infection. Recently patient had a 30 days heart monitor which did not show A. fib. 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 Type 2 diabetes mellitus Home Medications trazodone 100 mg PO QHS 04/20/16 [History Last Taken 11/20/20] amlodipine 10 mg PO DAILY 03/21/19 [History Last Taken 11/21/20] atorvastatin 20 mg PO DAILY 03/21/19 [History Last Taken 11/20/20] doxycycline hyclate 20 mg PO BID 03/21/19 [History Last Taken 11/21/20] mirabegron 50 mg PO QHS 03/21/19 [History Last Taken 11/20/20] omeprazole 20 mg PO DAILY 03/21/19 [History Last Taken 11/21/20] buspirone 5 mg tablet 10 mg PO TID tab 05/06/20 [History Last Taken 11/21/20] clopidogrel 75 mg tablet 75 mg PO DAILY 05/06/20 [History Last Taken 11/21/20] lactobacillus combination no.9 4 billion cell capsule 4,000 mmu cells PO DAILY 05/06/20 [History Last Taken 11/21/20] linagliptin 5 mg tablet 5 mg PO DAILY 05/06/20 [History Last Taken 11/21/20] carvedilol 25 mg tablet 12.5 mg PO BID tab 05/07/20 [History Last Taken 11/21/20] cholecalciferol (vitamin D3) 125 mcg (5,000 unit) capsule 125 mcg PO DAILY 05/07/20 [History Last Taken 11/21/20] vilazodone 40 mg tablet 40 mg PO DAILY 05/07/20 [History Last Taken 11/21/20] aspirin 325 mg PO DAILY 11/11/20 [History Last Taken 11/21/20] hydrocodone-acetaminophen 0.5 tab PO TID PRN PRN 11/11/20 [History Last Taken Unknown] Allergy/AdvReac Type Severity Reaction Status Date / Time clarithromycin [From Biaxin] Allergy Severe Vomiting Verified 11/21/20 16:03 metaxalone [From Skelaxin] Allergy Severe Hives Verified 11/21/20 16:03 morphine AdvReac Shortness Verified 11/21/20 16:03 of breath Family History Mother Brain aneurysm Father Heart disease Diabetes Grandfather Cancer Grandmother Cancer Surgical History History of appendectomy History of back surgery History of cataract surgery History of cholecystectomy History of total knee arthroplasty Social History Smoking Status: Former smoker alcohol intake: never substance use type: does not use additional social history: Does Take Aspirin Does Not Take Ibuprofen ROS ROS Narrative Constitutional: Reports anorexia. Denies change in weight. Reports fatigue and weakness. Eyes: Denies blurry vision, change in eye color, change in vision, discharge from eye(s), double vision, erythema, eye pain, loss of vision or other HEENT: Denies abnormal hearing, dysphagia, ear pain, epistaxis, headache(s), hearing loss, nasal congestion, nasal discharge, post nasal drip, sinus pressur e, sore throat or other Cardiovascular: Denies chest pain. Denies dyspnea on exertion, orthopnea and paroxysmal nocturnal dyspnea Respiratory/Chest: Reports occasional dry cough. Denies shortness of breath Gastrointestinal: Denies abdominal pain, coffee ground emesis, constipation, diarrhea, dyspepsia, hematemesis, hematochezia, loose stools, melena, nausea, vomiting or other Genitourinary: Denies burning urination, difficulty urinating, dysuria, hematuria, nocturia, urinary frequency, urinary hesitancy, urinary incontinence, urinary urgency or other Musculoskeletal: Denies arthralgias, back pain, joint pain, joint stiffness, joint swelling, myalgias, neck pain or other Neurologic: Denies abnormal gait, abnormal speech, confusion, disequilibrium, dizziness, focal weakness, headache(s), numbness, paresthesias, seizure-like activity, seizures, syncope, tingling, tremor(s) or other Psychiatric: Denies anxiety, depression, homicidal ideation, suicidal ideation or other Endocrinology: Denies change in body appearance, cold intolerance, excessive sweating, heat intolerance, polydipsia, polyuria or other Hematologic/Lymphatic: Denies anemia, easy bleeding, easy bruising, lymphad enopathy or other Integumentary: Denies ulcer on buttocks. Allergic/Immunologic: Denies rhinitis, hives, eczema, asthma or other Vital Signs Vital Signs Vital Signs: 11/21/20 16:00 11/21/20 16:02 11/21/20 16:04 Temperature 98.2 F 98.2 F Temperature Source Oral Oral Pulse Rate 110 H 110 H Respiratory Rate 17 17 Respiratory Effort Normal Non-Labored Respiratory Depth Normal Respiratory Pattern Normal Blood Pressure 149/82 H 149/82 H Blood Pressure Mean 104 104 Pulse Ox 93 93 Oxygen Delivery Method Room Air Room Air Room Air 11/21/20 16:33 11/21/20 17:00 11/21/20 17:10 Temperature 97.9 F Temperature Source Temporal Pulse Rate 153 H 162 H 95 Respiratory Rate 19 H Respiratory Effort Respiratory Depth Respiratory Pattern Blood Pressure 132/91 H 104/65 Blood Pressure Mean 104 78 Pulse Ox Oxygen Delivery Method 11/21/20 17:20 11/21/20 17:28 11/21/20 17:33 Temperature 99 F Temperature Source Temporal Pulse Rate 113 H 116 H 107 H Respiratory Rate 17 Respiratory Effort Respiratory Depth Respiratory Pattern Blood Pressure 99/64 Blood Pressure Mean 75 Pulse Ox 93 Oxygen Delivery Method Room Air 11/21/20 18:00 11/21/20 18:35 11/21/20 18:39 Temperature 99.2 F H 99 F Temperature Source Temporal Temporal Pulse Rate 133 H 88 148 H Respiratory Rate 24 H 20 H Respiratory Effort Respiratory Depth Respiratory Pattern Blood Pressure 154/85 H 133/69 H Blood Pressure Mean 108 90 Pulse Ox 93 Oxygen Delivery Method 11/21/20 18:48 11/21/20 19:00 11/21/20 20:00 Temperature 97.9 F 98 F Temperature Source Temporal Oral Pulse Rate 118 H 84 139 H Respiratory Rate 18 18 Respiratory Effort Respiratory Depth Respiratory Pattern Blood Pressure 139/93 H 131/68 H Blood Pressure Mean 108 89 Pulse Ox 99 99 Oxygen Delivery Method 11/21/20 20:14 11/21/20 20:15 Temperature 98 F 98 F Temperature Source Oral Oral Pulse Rate 139 H 139 H Respiratory Rate 18 20 H Respiratory Effort Respiratory Depth Respiratory Pattern Blood Pressure 131/68 H 131/68 H Blood Pressure Mean 89 89 Pulse Ox 99 99 Oxygen Delivery Method Room Air Weight Weight: 76 kg Body Mass Index (BMI) 24.7 Results Lab / Micro Data Result Diagrams: 11/21/20 16:24 11/21/20 16:24 Labs: Laboratory Results - last 24 hr 11/21/20 16:24: WBC 14.0 H, RBC 3.31 L, Hgb 9.6 L, Hct 29.4 L, MCV 88.8, MCH 29.0, MCHC 32.7, RDW Std Deviation 43.7, RDW Coeff of Dee 13.4, Plt Count 292, MPV 11.1, Immature Gran % (Auto) 2.800 H, Neut % (Auto) 84.6 H, Lymph % (Auto) 2.4 L, [place] % (Auto) 9.1, Eos % (Auto) 0.9, Baso % (Auto) 0.2, Absolute Neuts (auto) 11.8 H, Absolute Lymphs (auto) 0.34 L, Nucleated RBC % 0, Differential C omment SCANNED 11/21/20 16:24: Sodium 137, Potassium 4.7, Chloride 108 H, Carbon Dioxide 19.0 L , Anion Gap 10, BUN 110 H*, Creatinine 4.26 H, Estim Creat Clear Calc 10.64, Est GFR (MDRD) Af Amer 13 L, Est GFR (MDRD) Non-Af 11 L, BUN/Creatinine Ratio 25.8 H , Glucose 210 H, Calcium 8.2 L, Total Bilirubin 0.30, AST 12 L, ALT 17, Alkaline Phosphatase 66, Troponin I High Sens 12, Total Protein 5.2 L, Albumin 2.1 L, Globulin 3.1, Albumin/Globulin Ratio 0.7 L 11/21/20 16:24: Lactic Acid 0.8 11/21/20 17:51: Urine Color Yellow, Urine Clarity Sl Cldy, Urine pH 6.0, Ur Specific [place] 1.015, Urine Protein 500 H, Urine Glucose (UA) 100 H, Urine Ketones Negative, Urine Occult Blood Negative, Urine Nitrite Negative, Urine Bilirubin Negative, Urine Urobilinogen Normal, Ur Leukocyte Esterase Negative, Urine RBC 0 SEEN, Urine WBC 0 SEEN, Ur Squamous Epith Cells 0-5 SEEN, Amorphous Sediment 1+ URATE, Urine Bacteria 0 SEEN, Hyaline Casts 0-5 SEEN, Urine Mucus 0 SEEN 11/21/20 18:30: Troponin I High Sens 14 Radiology Impression Chest X-Ray 11/21/20 18:24 IMPRESSION: Bilateral viral pneumonia. Chronic focal opacities, refer to CT PET for full description. Electronically Signed: Anni Soares MD at 19:19 EDT Tel , Service support , Assessment & Plan Assessment/Plan (1) Atrial fibrillation with RVR: (2) CHETAN (acute kidney injury): (3) Chronic kidney disease, stage 4 (severe): (4) Hypertension: QUALIFIERS: Hypertension type: primary hypertension Qualified Code(s): I10 - Essential (primary) hypertension PLAN: Afib with RVR Place on PCU on telemetry Serial cardiac enzymes ordered Echocardiogram on 04/07/2020 ejection fraction 55% to stage I diastolic dysfunction. Lovenox 1 mg per kilogram subcutaneous every 24 hours because of acute on chronic kidney disease. Patient is fearful and be started on Eliquis since her boyfriend from bleeding secondary to Eliquis. Consider further discussion with the patient, Dr. 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 [id number] score is at least 6 (age; female gender; hypertension; history of TIA) Started on Cardizem drip at the emergency department and continued. On home carvedilol. Will change to metoprolol. Magnesium is 1.8. Replace. Recent covid-19 infection Keep in droplet precaution. Acute on chronic end-stage renal disease Patient reports CKD secondary to focal glomerulosclerosis. Baseline creatinine 3.25-3.9. On presentation creatinine was 4.26. Gentle IV hydration. Avoid nephrotoxic's. Diabetes mellitus Patient with hyperglycemia on presentation DPP IV inhibitor continued. Accu-Chek QA CHS with correction scale insulin ordered. DVT Prophylaxis: Not indicated since patient is on therapeutic dose of Lovenox. Charges/Coding Visit Charges Inpatient E&M: 48117 Init Hosp L3
[2020-11-21] MEDS: 0.9% Normal Saline 1,000 ML 75 ML IV (23:59)
[2020-11-22] VITALS (15 sets, daily range): BP systolic 91–143; BP diastolic 60–73; PULSE 62–105; RESP 14–25; TEMP 36.4–36.8; O2SAT 90–95
[2020-11-22] MEDS: HYDROcodone Bitartrate/Apap 5/325 Tablet PO (00:02)
[2020-11-22] MEDS: traZODone 100 MG Tablet PO (00:02)
[2020-11-22] MEDS: busPIRone 5 MG Tablet 10 MG PO ×3 (00:03→14:32)
[2020-11-22] MEDS: Metoprolol Tartrate 50 MG Tablet PO ×2 (00:03→08:28)
[2020-11-22] MEDS: Mirabegron 50 MG TAB.ER.24H PO (00:03)
[2020-11-22] MEDS: Enoxaparin 80 MG/0.8 ML Syringe SC ×2 (00:04→08:29)
[2020-11-22 00:18] LABS: Troponin-I HS 15 pg/mL (3.0-54.0)
[2020-11-22 00:21] LABS: Bedside Glucose 160 mg/dL (70-110)
--- NOTE | 2020-11-22 00:21 | EKG12_ITS ---
Test Reason : AFIB Blood Pressure : / mmHG Vent. Rate : 106 BPM Atrial Rate : 120 BPM P-R Int : 000 ms QRS Dur : 084 ms QT Int : 296 ms P-R-T Axes : 000 -33 065 degrees QTc Int : 393 ms Atrial fibrillation Left axis deviation Low voltage QRS Abnormal ECG When compared with ECG of 22-NOV-2020 00:34, MANUAL COMPARISON REQUIRED, DATA IS UNCONFIRMED Confirmed by TAMI MANN, DAVID ([id number]), editor continuity and script ROSIBEL KIRKPATRICK ([id number]) on 11/25/2020 8:04:47 AM Referred By: DR RENDON Confirmed By:DAVID GARRETT MD
--- NOTE | 2020-11-22 03:34 | EKG12_ITS ---
Test Reason : CONVERT TO NSR Blood Pressure : / mmHG Vent. Rate : 064 BPM Atrial Rate : 064 BPM P-R Int : 140 ms QRS Dur : 086 ms QT Int : 426 ms P-R-T Axes : 071 -04 048 degrees QTc Int : 439 ms Normal sinus rhythm Low voltage QRS Borderline ECG When compared with ECG of 21-NOV-2020 16:24, MANUAL COMPARISON REQUIRED, DATA IS UNCONFIRMED Confirmed by TAMI MANN, DAVID ([id number]), non linear editor ROSIBEL KIRKPATRICK ([id number]) on 11/25/2020 8:05:12 AM Referred By: DR RENDON Confirmed By:DAVID GARRETT MD
[2020-11-22 07:29] LABS: Absolute Lymphocyte Count 0.29 X10^3/uL (0.83-4.51); Absolute Neutrophil Count 8.8 X10^3/uL (2.0-7.7); Basophil# 0.03 X10^3/uL; Basophil% 0.3 % (0-1); Eosinophils% 1.9 % (0-5); Hematocrit 27.7 % (37-47); Hemoglobin 8.8 g/dL (12.0-15.0); Lymphocyte # 0.29 X10^3/ul (0.83-4.51); Lymphocyte % 2.7 % (19-41); Mean Corp Hgb Conc 31.8 g/dL (32-36); Mean Corpuscular Hgb 28.3 pg (27.0-32.0); Mean Corpuscular Volume 89.1 fL (81-99); Mean Platelet Vol. 10.4 fl (6.2-12.0); Monocyte# 0.93 X10^3/uL; Monocyte% 8.8 % (0-10); NRBC Flagged by Analyzer 0 % (0-5); Neutrophil # 8.83 X10^3/uL (2.7-7.7); Neutrophil % 83.6 % (47-70); POSITIVE DIFFERENTIAL YES; Platelet Count 247 K/mm3 (150-450); RBC Distribution Width CV 13.2 % (11.6-14.6); RBC Distribution Width SD 43.5 fl (35.1-43.9); Red Blood Count 3.11 M/mm3 (4.2-5.4); White Blood Count 10.6 K/mm3 (4.4-11.0)
[2020-11-22 07:36] LABS: Differential Indicated SCAN CRITERIA MET
--- NOTE | 2020-11-22 07:40 | PCS.PANDOC ---
PANDEMIC DOCUMENTATION INITIATED: Date: 11/17/2020 Time: 190
[2020-11-22 07:53] LABS: Anion Gap 10 (5-15); BUN 99 mg/dL (7-18); BUN/Creat Ratio 25.8 RATIO (10-20); Chloride 112 mmol/L (98-107); Creatinine, Serum 3.83 mg/dL (0.55-1.02); EST Glomerular Filtration Rate 12 mL/min (>60); Est Glom Filt Rate - Afr Amer 15 mL/min (>60); Estimated Creatinine Clearance 11.84 ml/min; Glucose 153 mg/dL (74-106); Potassium 4.2 mmol/L (3.5-5.1); Sodium Level 139 mmol/L (136-145); Thyroid Stim Hormone (TSH) 1.57 uIU/mL (0.358-3.74)
[2020-11-22] MEDS: VILAZODONE HYDROCHLORIDE 10 MG TABLET 40 MG PO (08:27)
[2020-11-22] MEDS: Clopidogrel Bisulfate 75 MG Tablet PO (08:28)
[2020-11-22] MEDS: amLODIPine 10 MG Tablet PO (08:28)
[2020-11-22] MEDS: LINAGLIPTIN 5 MG TABLET PO (08:28)
[2020-11-22] MEDS: Cholecalciferol (VIT D3) 25 MCG TABLET (1,000 UNITS) 125 MCG PO (08:28)
[2020-11-22] MEDS: Aspirin 325 MG Tablet PO (08:29)
[2020-11-22] MEDS: Pantoprazole Sodium 20 MG Tablet PO (08:29)
[2020-11-22 10:48] LABS: Differential Comment SCANNED
--- NOTE | 2020-11-22 11:00 | CASEMGMT ---
ARSENIO RAMIREZ chart review: Patient was admitted 11/11/20-11/15/20 for covid pneumonia and hypoxia. Patient was discharged to home with home oxygen. Dina returned 11/21/20 with complaint of SOB. Patient admitted for Afib with RVR. Patient worked with therapy and no therapy recommend at discharge. Patient will discharge on Eliquis. Family will be assisting patient, no further needs at this time.
[2020-11-22] MEDS: Glucerna Shake 120 ML LIQUID PO (11:49)
[2020-11-22 11:55] LABS: Bedside Glucose 170 mg/dL (70-110)
--- NOTE | 2020-11-22 12:24 | DS.PCM_ITS ---
Providers Date of Admission: 11/21/20 Primary Care Physician: Dr. Chaparrita Albrecht DO Reason For Visit: AFIB WITH RVR Diagnosis Discharge Diagnosis (1) Atrial fibrillation with RVR: Status: Acute Code(s): I48.91 - Unspecified atrial fibrillation (2) CHETAN (acute kidney injury): Status: Acute Code(s): N17.9 - Acute kidney failure, unspecified (3) Chronic kidney disease, stage 4 (severe): Status: Chronic Code(s): N18.4 - Chronic kidney disease, stage 4 (severe) (4) Hypertension: Status: Chronic Code(s): I10 - Essential (primary) hypertension Qualifiers: Hypertension type: primary hypertension Qualified Code(s): I10 - Essential (primary) hypertension Medications at Discharge Home Medications trazodone 100 mg PO QHS 04/20/16 amlodipine 10 mg PO DAILY 03/21/19 atorvastatin 20 mg PO DAILY 03/21/19 doxycycline hyclate 20 mg PO BID 03/21/19 mirabegron 50 mg PO QHS 03/21/19 omeprazole 20 mg PO DAILY 03/21/19 buspirone 5 mg tablet 10 mg PO TID tab 05/06/20 lactobacillus combination no.9 4 billion cell capsule 4,000 mmu cells PO DAILY 05/06/20 linagliptin 5 mg tablet 5 mg PO DAILY 05/06/20 cholecalciferol (vitamin D3) 125 mcg (5,000 unit) capsule 125 mcg PO DAILY 05/07/20 vilazodone 40 mg tablet 40 mg PO DAILY 05/07/20 hydrocodone-acetaminophen 0.5 tab PO TID PRN PRN 11/11/20 apixaban [Eliquis] 2.5 mg PO 0800,1999 #30 tab 11/22/20 aspirin 81 mg PO BREAKFAST #0 tab 11/22/20 metoprolol tartrate 50 mg PO BID #60 tab 11/22/20 Hospital Course Operations None Procedures None Summary of Care Provided Minutes Spent on Discharge: 39 Hospital Course: Mrs. Mann is an 80-year-old white female who presented to the emergency department [facility] on 11/21/2020 in atrial fibrillation. Her A. fib started and persisted on the day of presentation and therefore she was brought to the emergency department. On admission she was found to be in RVR. She is on carvedilol at baseline and this was switched to metoprolol 50 mg twice daily. She was also started on a Cardizem drip after bolus was initiated. Of note the patient had a recent 30-day heart monitor that did not show any atrial fibrillation. This was done for a recent stroke. She has been on full dose aspirin and Plavix for her stroke since that time. She recently was diagnosed with Covid 19(approximately 2 weeks ago) and is scheduled to come out of isolation on 11/23/2020. During her hospitalization she converted into normal sinus rhythm. After extensive discussion with her PCP and her daughter who is an internal medicine physician in [place], the decision was made to pursue to anticoagulation given her stroke risk. She was started on Eliquis 2.5 mg twice daily which is to be initiated on 11/23/2020 given her Lovenox dosing here. We will stop her Plavix at this time. Her aspirin dose was decreased from 325 mg daily to 81 mg daily. She was seen by therapy services and needs no further therapy as an inpatient nor does she qualify for home health therapy services at this time. She was discharged home in stable condition. It is recommended she follow-up with her PCP in 1 week. New prescriptions were faxed to her pharmacy. Discharge diagnoses: A. 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 DM-2 HTN HPL History of meningioma OA Left artery carotid stenosis Right subclavian steal syndrome GERD COPD Cataracts Physical Exam Const alert, oriented x3 and no apparent distress General Appearance: cooperative, comfortable, well kempt and well developed HEENT normocephalic, head/scalp atraumatic, moist oral mucous membranes and oropharynx normal HEENT Narrative: No thrush, Mallampati 2 Eyes PERRL and EOMs intact bilaterally Eyes Narrative: Mild conjunctival pallor Neck no lymphadenopathy, supple and no JVD Neck Narrative: Trachea midline, no thyroid enlargement Resp normal respiratory effort, no retractions, no use of accessory muscles and clear to auscultation bilaterally Auscultation: Negative for crackles, rales, rhonchi or wheezes Cardio regular rate, regular rhythm, S1 normal heart sound, S2 normal heart sound, no murmurs, no rub, no gallops, no clicks and no JVD GI normal to inspection, nondistended, normoactive bowel sounds, soft to palpation and non-distended Extremity Extremity Narrative: Trace to 1+ bilateral lower extremity edema, no cyanosis or clubbing General Extremity: edema Skin no wounds, skin turgor normal and no jaundice Neuro oriented x3, CN's II-XII intact bilaterally, moves all extremities and no focal motor deficits Neuro Narrative: Generalized weakness but no focal deficits Sensorium / Orientation: awake and alert Speech: speech normal Psych affect normal Psych Narrative: Very pleasant Weight / BMI Weight Weight: 73.3 kg Body Mass Index (BMI) 23.8 ABG / Lab / Microbiology Data Result Diagrams: 11/22/20 07:21 11/22/20 07:21 Laboratory: Laboratory Results - last 24 hr 11/21/20 16:24: WBC 14.0 H, RBC 3.31 L, Hgb 9.6 L, Hct 29.4 L, MCV 88.8, MCH 29.0, MCHC 32.7, RDW Std Deviation 43.7, RDW Coeff of Dee 13.4, Plt Count 292, MPV 11.1, Immature Gran % (Auto) 2.800 H, Neut % (Auto) 84.6 H, Lymph % (Auto) 2.4 L, [place] % (Auto) 9.1, Eos % (Auto) 0.9, Baso % (Auto) 0.2, Absolute Neuts (auto) 11.8 H, Absolute Lymphs (auto) 0.34 L, Nucleated RBC % 0, Differential Comment SCANNED 11/21/20 16:24: Sodium 137, Potassium 4.7, Chloride 108 H, Carbon Dioxide 19.0 L , Anion Gap 10, BUN 110 H*, Creatinine 4.26 H, Estim Creat Clear Calc 10.64, Est GFR (MDRD) Af Amer 13 L, Est GFR (MDRD) Non-Af 11 L, BUN/Creatinine Ratio 25.8 H, Glucose 210 H, Calcium 8.2 L, Total Bilirubin 0.30, AST 12 L, ALT 17, Alkaline Phosphatase 66, Troponin I High Sens 12, Total Protein 5.2 L, Albumin 2.1 L, Globulin 3.1, Albumin/Globulin Ratio 0.7 L 11/21/20 16:24: Lactic Acid 0.8 11/21/20 17:51: Urine Color Yellow, Urine Clarity Sl Cldy, Urine pH 6.0, Ur Specific [place] 1.015, Urine Protein 500 H, Urine Glucose (UA) 100 H, Urine Ketones Negative, Urine Occult Blood Negative, Urine Nitrite Negative, Urine Bilirubin Negative, Urine Urobilinogen Normal, Ur Leukocyte Esterase Negative, Urine RBC 0 SEEN, Urine WBC 0 SEEN, Ur Squamous Epith Cells 0-5 SEEN, Amorphous Sediment 1+ URATE, Urine Bacteria 0 SEEN, Hyaline Casts 0-5 SEEN, Urine Mucus 0 SEEN 11/21/20 18:30: Troponin I High Sens 14 11/21/20 23:45: Troponin I High Sens 15 11/22/20 00:10: POC Glucose 160 H 11/22/20 07:21: WBC 10.6, RBC 3.11 L, Hgb 8.8 L, Hct 27.7 L, MCV 89.1, MCH 28.3, MCHC 31.8 L, RDW Std Deviation 43.5, RDW Coeff of Dee 13.2, Plt Count 247, MPV 10.4, Immature Gran % (Auto) 2.700 H, Neut % (Auto) 83.6 H, Lymph % (Auto) 2.7 L , [place] % (Auto) 8.8, Eos % (Auto) 1.9, Baso % (Auto) 0.3, Absolute Neuts (auto) 8.8 H, Absolute Lymphs (auto) 0.29 L, Nucleated RBC % 0, Differential Comment SCANNED 11/22/20 07:21: Sodium 139, Potassium 4.2, Chloride 112 H, Carbon Dioxide 17.0 L , Anion Gap 10, BUN 99 H, Creatinine 3.83 H, Estim Creat Clear Calc 11.84, Est GFR (MDRD) Af Amer 15 L, Est GFR (MDRD) Non-Af 12 L, BUN/Creatinine Ratio 25.8 H , Glucose 153 H, Calcium 8.0 L, TSH 1.57 11/22/20 11:40: POC Glucose 170 H Radiography Diagnostic Testing: Radiology Impression Chest X-Ray 11/21/20 18:24 IMPRESSION: Bilateral viral pneumonia. Chronic focal opacities, refer to CT PET for full description. Electronically Signed: Anni Soares MD at 19:19 EDT Tel , Service support , D/C Instructions Discharge Diet: Low fat / Low cholesterol and 1800 Calorie Control Diet Meaningful Use Info Meaningful Use Diagnoses (Choose all that apply): None applicable Discharge Plan Admission Admit Date/Time: 11/21/20 21:11 Primary Reason for Your Visit: Afib with RVR Attending Provider: Marleen Vuong Primary Care Provider: Chaparrita Albrecht Discharge Orders/Prescriptions Prescriptions: New aspirin 81 mg Tablet,Chewable 81 mg PO BREAKFAST Qty: 0 RF: 0 Eliquis 2.5 mg Tablet 2.5 mg PO 0800,1999 Qty: 30 RF: 2 metoprolol tartrate 50 mg Tablet 50 mg PO BID Qty: 60 RF: 2 Continued Viibryd 40 mg tablet 40 mg PO DAILY RF: 0 cholecalciferol (vitamin D3) 125 mcg (5,000 unit) capsule 125 mcg PO DAILY RF: 0 Adult 50 Plus Probiotic 4 billion cell capsule 4,000 mmu cells PO DAILY RF: 0 Tradjenta 5 mg tablet 5 mg PO DAILY RF: 0 trazodone 100 MG tablet 100 mg PO QHS RF: 0 atorvastatin 20 MG tablet 20 mg PO DAILY RF: 0 amlodipine 10 MG tablet 10 mg PO DAILY RF: 0 omeprazole 20 MG capsule,delayed release(DR/EC) 20 mg PO DAILY RF: 0 mirabegron 50 MG tablet extended release 24 hr 50 mg PO QHS RF: 0 doxycycline hyclate 20 MG tablet 20 mg PO BID RF: 0 buspirone 5 mg tablet 10 mg PO TID RF: 0 hydrocodone-acetaminophen 5-325 mg tablet 0.5 tab PO TID PRN PRN (Reason: Pain) RF: 0 Discontinued carvedilol 25 mg tablet 12.5 mg PO BID RF: 0 clopidogrel 75 mg tablet 75 mg PO DAILY RF: 0 aspirin 325 mg Tablet 325 mg PO DAILY RF: 0 Referrals / Follow Up: Chaparrita Albrecht DO [Primary Care Provider] - Charges/Coding Visit Charges Inpatient E&M: 83138 Disch Hosp
--- NOTE | 2020-11-22 14:27 | PCM.DC ---
Discharge Instructions Diet Discharge Diet: Low fat / Low cholesterol and 1800 Calorie Control Diet Follow Up Care Test Results: Test results from this visit will be discussed in further detail at your follow-up appointment, if applicable. Discharge Plan Admission Admit Date/Time: 11/21/20 21:11 Primary Reason for Your Visit: Afib with RVR Attending Provider: Marleen Vuong Primary Care Provider: Chaparrita Albrecht Discharge Orders/Prescriptions Prescriptions: New aspirin 81 mg Tablet,Chewable 81 mg PO BREAKFAST Qty: 0 RF: 0 Eliquis 2.5 mg Tablet 2.5 mg PO 0800,1999 Qty: 30 RF: 2 metoprolol tartrate 50 mg Tablet 50 mg PO BID Qty: 60 RF: 2 Continued Viibryd 40 mg tablet 40 mg PO DAILY RF: 0 cholecalciferol (vitamin D3) 125 mcg (5,000 unit) capsule 125 mcg PO DAILY RF: 0 Adult 50 Plus Probiotic 4 billion cell capsule 4,000 mmu cells PO DAILY RF: 0 Tradjenta 5 mg tablet 5 mg PO DAILY RF: 0 trazodone 100 MG tablet 100 mg PO QHS RF: 0 atorvastatin 20 MG tablet 20 mg PO DAILY RF: 0 amlodipine 10 MG tablet 10 mg PO DAILY RF: 0 omeprazole 20 MG capsule,delayed release(DR/EC) 20 mg PO DAILY RF: 0 mirabegron 50 MG tablet extended release 24 hr 50 mg PO QHS RF: 0 doxycycline hyclate 20 MG tablet 20 mg PO BID RF: 0 buspirone 5 mg tablet 10 mg PO TID RF: 0 hydrocodone-acetaminophen 5-325 mg tablet 0.5 tab PO TID PRN PRN (Reason: Pain) RF: 0 Discontinued carvedilol 25 mg tablet 12.5 mg PO BID RF: 0 clopidogrel 75 mg tablet 75 mg PO DAILY RF: 0 aspirin 325 mg Tablet 325 mg PO DAILY RF: 0 Referrals / Follow Up: Chaparrita Albrecht DO [Primary Care Provider] - Disposition Disposition (needs filled in before D/C Order can be placed): Home, Self Care
[2020-11-24 07:21] LABS: Bedside Glucose 145 mg/dL (70-110)
--- NOTE | 2020-11-24 14:29 | CASEMGMT ---
ARSENIO RAMIREZ Discharge Follow Up Phone Call: ELLIOTTMahin: Mery Strata:3 Call Date: 11/24/20 Discharge Date: 11/22/20 Time of Call:1427 Duration:3 min Admitting Dx:afib with rvr ARSENIO RAMIREZ completed follow up phone call after recent hospitalization. Pt states she is slow but ok regarding her status since being home. She states her dtr has filled her pill pods for her and obtained her scripts. She does have a follow up appt with Dr. Albrecht but is unsure when it is. She states she will show up as her appts are at her home. Pt denies any questions regarding her dc instructions or her medications. Pt was grateful for the care she received at [facility].
== END 2020-11-22 15:53 | disposition home or self-care (01) | DRG 309 ==
LOC: ED 19:44 → PCU 21:23
PROVIDERS: Admitting Provider Hospitalist; Emergency Provider Emergency Medicine; PCP Internal Medicine; Visit Provider Internal Medicine
DX: I48.91 Unspecified atrial fibrillation (principal); N18.4 Chronic kidney disease, stage 4 (severe); N17.9 Acute kidney failure, unspecified; E87.2 Acidosis; C79.9 Secondary malignant neoplasm of unspecified site; C34.90 Malignant neoplasm of unspecified part of unspecified bronchus or lung; D63.0 Anemia in neoplastic disease; D63.1 Anemia in chronic kidney disease; I12.9 Hypertensive chronic kidney disease with stage 1 through stage 4 chronic kidney disease, or unspecified chronic kidney disease; E11.22 Type 2 diabetes mellitus with diabetic chronic kidney disease; E78.5 Hyperlipidemia, unspecified; M19.90 Unspecified osteoarthritis, unspecified site; I65.22 Occlusion and stenosis of left carotid artery; K21.9 Gastro-esophageal reflux disease without esophagitis; J44.9 Chronic obstructive pulmonary disease, unspecified; Z79.01 Long term (current) use of anticoagulants; Z79.02 Long term (current) use of antithrombotics/antiplatelets; Z79.84 Long term (current) use of oral hypoglycemic drugs; Z79.82 Long term (current) use of aspirin; Z79.899 Other long term (current) drug therapy; Z87.891 Personal history of nicotine dependence; Z86.16 Personal history of COVID-19; Z87.01 Personal history of pneumonia (recurrent); Z86.73 Personal history of transient ischemic attack (TIA), and cerebral infarction without residual deficits
CPT/HCPCS: 36415; 71045; 80048; 80053; 81001; 82962; 83605; 83735; 84443; 84484; 85025; 87077; 87086; 87088; 87186; 93005; 97162; 97166; 99285; J7030; J7040; A4216

== ENCOUNTER → 2020-11-21 | Outpatient (CLI) | payer MEDICARE, OTHER, SELFPAY ==
[2020-11-21 14:53] LABS: Absolute Lymphocyte Count 0.39 X10^3/uL (0.83-4.51); Absolute Neutrophil Count 13.9 X10^3/uL (2.0-7.7); Basophil# 0.05 X10^3/uL; Basophil% 0.3 % (0-1); Eosinophil# 0.17 X10^3/uL; Hematocrit 30.8 % (37-47); Hemoglobin 9.8 g/dL (12.0-15.0); Lymphocyte # 0.39 X10^3/ul (0.83-4.51); Lymphocyte % 2.4 % (19-41); Mean Corp Hgb Conc 31.8 g/dL (32-36); Mean Corpuscular Hgb 28.6 pg (27.0-32.0); Mean Corpuscular Volume 89.8 fL (81-99); Mean Platelet Vol. 11.1 fl (6.2-12.0); Monocyte# 1.51 X10^3/uL; Monocyte% 9.2 % (0-10); NRBC Flagged by Analyzer 0 % (0-5); Neutrophil # 13.88 X10^3/uL (2.7-7.7); Neutrophil % 84.2 % (47-70); POSITIVE DIFFERENTIAL YES; Platelet Count 323 K/mm3 (150-450); RBC Distribution Width CV 13.3 % (11.6-14.6); RBC Distribution Width SD 44.1 fl (35.1-43.9); Red Blood Count 3.43 M/mm3 (4.2-5.4); White Blood Count 16.5 K/mm3 (4.4-11.0)
[2020-11-21 14:56] LABS: Differential Indicated SCAN CRITERIA MET
[2020-11-21 15:25] LABS: ALB/GLOB Ratio 0.8 RATIO (0.9-2.4); AST(SGOT) 14 U/L (15-37); Alanine Aminotransfer ALT/SGPT 17 U/L (13-56); Albumin, Serum 2.1 g/dL (3.2-5.0); Alkaline Phosphatase 67 U/L (45-117); Anion Gap 11 (5-15); BUN 111 mg/dL (7-18); Calcium,Total 8.2 mg/dL (8.5-10.1); Chloride 107 mmol/L (98-107); Creatinine, Serum 4.27 mg/dL (0.55-1.02); EST Glomerular Filtration Rate 11 mL/min (>60); Est Glom Filt Rate - Afr Amer 13 mL/min (>60); Globulin 2.6 g/dL (2.2-4.2); Glucose 214 mg/dL (74-106); Magnesium 1.8 mg/dL (1.6-2.6); Potassium 4.8 mmol/L (3.5-5.1); Protein, Total 4.7 g/dL (6.4-8.2); Sodium Level 137 mmol/L (136-145)
[2020-11-24 12:50] LABS: Pathologist Review Reviewed
== END | disposition home or self-care (01) ==
LOC: LABSPEC 14:41
PROVIDERS: PCP Internal Medicine; Referring Provider Internal Medicine; Visit Provider Internal Medicine
DX: N18.4 Chronic kidney disease, stage 4 (severe) (principal)
CPT/HCPCS: 80053; 83735; 85025